=== PATIENT | male | born 1960 | race African-American/Black ===

== ENCOUNTER 2022-10-02 09:38 | Outpatient (RCR) | payer MEDICARE, SELFPAY | END 2022-11-11 11:43 | disposition home or self-care (01) | LOC: PT 09:38 | PROVIDERS: PCP Family Medicine; Visit Provider Personal Emergency Response Attendant | DX: Z98.890 Other specified postprocedural states (principal) | CPT/HCPCS: 97110; 97140 ==

== ENCOUNTER 2022-10-14 11:09 | Emergency (ER) | payer MEDICARE, SELFPAY ==
[2022-10-14] VITALS (11 sets, daily range): BP systolic 124–141; BP diastolic 73–84; PULSE 85–101; RESP 16–26; TEMP 37.3; O2SAT 95–98; BMI 22.5
--- NOTE | 2022-10-14 11:29 | ECG_ITS ---
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
--- NOTE | 2022-10-14 11:29 | XR_ITS ---
The [address] [address] Patient Name: ALEJO FLOYD MRN: [id number] date: 1960 Sex: M Assigned Patient Location: ER Current Patient Location: Accession/Order Number: [id number] Exam Date: 10/14/2022 11:50 Report Date: 10/14/2022 12:29 At the request of: ADAM NAVA Procedure: XR chest 1V EXAM: CHEST 1 VIEW HISTORY: sob and cough for one week TECHNIQUE: Chest, one view. COMPARISON: None. FINDINGS: There is flattening of the diaphragms with trace left effusion and mild left lower lobe airspace disease along the diaphragm. Right lung is clear. No pneumothorax. Pulmonary vasculature is within normal limits. Cardiomediastinal silhouette is normal. IMPRESSION: 1. Pulmonary hyperinflation with a trace left effusion and minimal left lower lobe opacity that may be atelectasis versus small area of pneumonia given symptoms of cough. Correlate with symptoms and recommend short interval follow-up radiographs to resolution. 2. Clear right lung. Electronically authenticated by: REILLY MCNALLY Date: 10/14/2022 12:29
--- NOTE | 2022-10-14 11:29 | ED.CHESTPAI1 ---
HPI - Chest Pain General Chief Complaint: Chest Pain Stated Complaint: URTI COMPLAINTS Time Seen by Provider: 10/14/22 11:28 Source: patient Mode of arrival: walk-in Limitations: no limitations History of Present Illness HPI narrative: the patient is 62-year-old male coming to the Emergency Room with cough and chest congestion that is associated with difficulty breathing for the last few days he has been having those symptoms over the last one week, he denies any nausea vomiting or any chest pain at the moment except for the congestion he also denies any diarrhea or constipation His cough is productive of whitish sputum have a history of smoking as well Review of systems otherwise negative Related Data Home Medications Medication Instructions Recorded Confirmed aspirin 81 mg tablet,delayed 81 mg PO DAILY 10/14/22 10/14/22 release atorvastatin 20 mg tablet 20 mg PO DAILY 10/14/22 10/14/22 bupropion HCl 300 mg 24 hr tablet, 300 mg PO DAILY 10/14/22 10/14/22 extended release duloxetine 60 mg capsule,delayed 60 mg PO DAILY 10/14/22 10/14/22 release fluticasone furoate 100 1 inh inhalation Q24H 10/14/22 10/14/22 mcg-vilanterol 25 mcg/dose inhalation powder (Breo Ellipta) metoprolol succinate 50 mg 50 mg PO DAILY 10/14/22 10/14/22 tablet,extended release 24 hr omeprazole 40 mg capsule,delayed 40 mg PO DAILY 10/14/22 10/14/22 release oxycodone-acetaminophen 10 mg-325 1 tab PO Q4H PRN pain 10/14/22 10/14/22 mg tablet potassium chloride 10 mEq 10 meq PO DAILY 10/14/22 10/14/22 tablet,extended release zolpidem 10 mg tablet 10 mg PO DAILY 10/14/22 10/14/22 Previous Rx's Medication Instructions Recorded albuterol sulfate 2.5 mg/3 mL 2.5 mg (3 mL) inhalation Q6H PRN 10/14/22 (0.083 %) solution for nebulization shortness of breath or wheezing #90 mL albuterol sulfate 90 mcg/actuation 1 inh inhalation Q6H PRN shortness 10/14/22 aerosol inhaler (ProAir HFA) of breath or wheezing #8.5 grams azithromycin 500 mg tablet See Rx Instructions PO .COMPLEX #9 10/14/22 (Zithromax TRI-SURESH) tabs prednisone 50 mg tablet 50 mg PO DAILY 5 days #5 tabs 10/14/22 Allergies Allergy/AdvReac Type Severity Reaction Status Date / Time No Known Drug Allergies Allergy Verified 10/14/22 11:21 Review of Systems ROS Status of ROS 10 or more systems reviewed and unremarkable except as noted in history and below [facility] Medical History (Updated 10/14/22 @ 13:07 by Jacqueline Jj MD) Surgical History (Updated 10/14/22 @ 11:46 by Ketan Morrell) Social History Smoking status: Heavy tobacco smoker Exam Narrative Exam Narrative: Nurses note and vital signs reviewed and patient is not hypoxic. General: The patient appears well and in no apparent distress. Patient is resting comfortably on cart. Skin: Warm, dry, no pallor noted. There is no rash noted. Head: Normocephalic, atraumatic Eye: Normal conjunctiva Ears, Nose, Mouth, and Throat: oral mucosa is moist Cardiovascular: Regular Rate and Rhythm Respiratory: Patient is in no distress, no accessory muscle use, , there is distant breathing sounds bilaterally , no crackles Back: non-tender, no CVA tenderness bilaterally to percussion. GI: Normal bowel sounds, no tenderness to palpation, no masses appreciated. No rebound, guarding, or rigidity noted. : Pelvic exam was completed with nursing staff at bedside for entire duration of the exam. Speculum exam showed normal external genitalia, there was evidence of white/clear discharge in vaginal vault. There was no evidence of blood noted in the vaginal vault. Patient's os was closed. Bimanual exam showed no cervical motion tenderness, no adnexal tenderness, no masses were appreciated. Os is closed. Musculoskeletal: The patient has no evidence of calf tenderness, no pitting edema, symmetrical pulses noted bilaterally Neurological: A&O x4, normal speech Psychiatric: Cooperative Constitutional Vital Signs - 24 hr 10/14/22 11:22 10/14/22 12:15 10/14/22 12:21 Temperature 99.1 F Pulse Rate [Monitor] 101 H Respiratory Rate 20 18 Blood Pressure [Left Arm] 141/84 H Pulse Oximetry 98 95 97 Oxygen Delivery Method Room Air Room Air Room Air Course Vital Signs Vital signs: Vital Signs Temperature 99.1 F 10/14/22 11:22 Pulse Rate 101 H 06/13/23 11:22 Respiratory Rate 20 10/14/22 11:22 Blood Pressure 141/84 H 10/14/22 11:22 Pulse Oximetry 98 10/14/22 11:22 Oxygen Delivery Method Room Air 10/14/22 11:22 Temperature 99.1 F 10/14/22 11:22 Pulse Rate 101 H 10/14/22 11:22 Respiratory Rate 18 10/14/22 12:21 Blood Pressure 141/84 H 10/14/22 11:22 Pulse Oximetry 97 10/14/22 12:21 Oxygen Delivery Method Room Air 10/14/22 12:21 MDM - Chest Pain MDM Narrative Medical decision making narrative: EKG upon presentation showing sinus rhythm no ST elevation or depression and the patient is not presenting with an active chest pain patient CBC shows no leukocytosi chemistry was within normal and the patient was feeling much better after breathing treatment and solumedrol chest x-ray shows possible infiltrate and effusion of the left along the patient will be treated with Z-Suresh in addition to prednisone and breathing treatment at home he is to come back in case any symptoms or concerns The patient instructed about follow-up with his primary care doctor for further evaluation of his x-ray The patient is to followup with primary care physician in next 2-3 days or to return to the emergency department should any of the signs or symptoms worsen or new symptoms develop. The patient agrees with the following Diagnosis and Treatment plan and the patient will be discharged home. Lab Data Labs: Lab Results 10/14/22 Range/Units 12:15 WBC 5.0 (4.0-11.0) 10^3/uL RBC 4.51 L (4.70-6.10) 10^6/uL Hgb 14.4 (14.0-18.0) g/dL Hct 42.9 (42.0-54.0) % MCV 95.1 H (80.0-94.0) fL MCH 31.9 (25.9-34.0) pg MCHC 33.6 (29.9-35.2) g/dL RDW 17.0 H (11.0-15.0) % Plt Count 332 (150-450) 10^3/uL MPV 9.3 L (9.5-13.5) fL Neut % (Auto) 69.0 (43.0-75.0) % Lymph % (Auto) 15.7 L (20.5-60.0) % [place] % (Auto) 12.9 H (1.7-12.0) % Eos % (Auto) 1.2 (0.9-7.0) % Baso % (Auto) 1.0 (0.2-2.0) % Neut # (Auto) 3.5 (1.4-6.5) 10^3/uL Lymph # (Auto) 0.8 L (1.2-3.8) 10^3/uL [place] # (Auto) 0.7 (0.3-0.8) 10^3/uL Eos # (Auto) 0.1 (0.0-0.7) 10^3/uL Baso # (Auto) 0.1 (0.0-0.1) 10^3/uL Abs Immat Gran (auto) 0.01 (0.00-0.03) 10^3/uL Imm/Tot Granulo (auto) 0.2 (0.0-0.5) % PT 10.8 (9.0-11.6) sec INR 1.02 Sodium 135 L (136-145) mmol/L Potassium 3.8 (3.5-5.1) mmol/L Chloride 99 (98-107) mmol/L Carbon Dioxide 25.5 (21.0-32.0) mmol/L Anion Gap 14.3 BUN 9.0 (7.0-18.0) mg/dL Creatinine 0.85 (0.70-1.30) mg/dL Est GFR ( Amer) >60 (>=60) Est GFR (Non-Af Amer) >60 (>=60) BUN/Creatinine Ratio 10.6 Glucose 100 (74-106) mg/dL Calcium 9.6 (8.5-10.1) mg/dL Total Bilirubin 0.8 (0.2-1.0) mg/dL AST 20 (15-37) U/L ALT 26 (16-63) U/L Alkaline Phosphatase 123 H (46-116) U/L Troponin I High Sens 6.7 (4.0-76.1) pg/mL NT-Pro-B Natriuret Pep 131.0 (<=900.0) pg/mL Total Protein 8.4 H (6.4-8.2) g/dL Albumin 3.8 (3.4-5.0) g/dL Globulin 4.6 g/dL Albumin/Globulin Ratio 0.8 Discharge Plan Discharge Chief Complaint: Chest Pain Clinical Impression: Acute exacerbation of chronic obstructive pulmonary disease, Pneumonia Patient Disposition: Home, Self-Care Time of Disposition Decision: 13:03 Mode of Transportation: Private Vehicle Prescriptions / Home Meds: New albuterol sulfate [ProAir HFA] 90 mcg/actuation HFA aerosol inhaler 1 inh inhalation Q6H PRN (Reason: shortness of breath or wheezing) Qty: 8.5 0RF prednisone 50 mg tablet 50 mg PO DAILY 5 Days Qty: 5 0RF albuterol sulfate 2.5 mg /3 mL (0.083 %) solution for nebulization 2.5 mg inhalation Q6H PRN (Reason: shortness of breath or wheezing) Qty: 90 0RF azithromycin [Zithromax TRI-SURESH] 500 mg tablet See Rx Instructions .ROUTE .COMPLEX Qty: 9 0RF Rx Instructions: For 250 mg dose pack: take 500 mg today (day 1), then 250 mg for 4 days (days 2-5) No Action aspirin 81 mg tablet,delayed release (DR/EC) 81 mg PO DAILY atorvastatin 20 mg tablet 20 mg PO DAILY bupropion HCl 300 mg tablet extended release 24 hr 300 mg PO DAILY duloxetine 60 mg capsule,delayed release(DR/EC) 60 mg PO DAILY fluticasone furoate-vilanterol [Breo Ellipta] 100-25 mcg/dose blister with device 1 inh INHALATION Q24H metoprolol succinate 50 mg tablet extended release 24 hr 50 mg PO DAILY omeprazole 40 mg capsule,delayed release(DR/EC) 40 mg PO DAILY oxycodone-acetaminophen 10-325 mg tablet 1 tab PO Q4H PRN (Reason: pain) potassium chloride 10 mEq tablet extended release 10 meq PO DAILY zolpidem 10 mg tablet 10 mg PO DAILY Instructions: COPD (Chronic Obstructive Pulmonary Disease) (ED), Community Acquired Pneumonia (DC) Stand Alone Forms: Portal Instructions Referrals: Gildardo Paredes MD [Primary Care Provider] - 1 week
[2022-10-14] MEDS: IPRATROPIUM/ALBUTEROL SULFATE 3 ML AMPUL.NEB IH (12:14)
[2022-10-14 12:41] LABS: INR 1.02; Prothrombin Time 10.8 sec (9.0-11.6)
[2022-10-14 12:42] LABS: Alanine Aminotransferase 26 U/L (16-63); Albumin Globulin Ratio 0.8; Albumin Level 3.8 g/dL (3.4-5.0); Alkaline Phosphatase 123 U/L (46-116); Anion Gap 14.3; Aspartate Amino Transferase 20 U/L (15-37); BUN Creatinine Ratio 10.6; Bilirubin Total 0.8 mg/dL (0.2-1.0); Calcium 9.6 mg/dL (8.5-10.1); Carbon Dioxide 25.5 mmol/L (21.0-32.0); Chloride 99 mmol/L (98-107); Estimated GFR (African America >60 (>=60); Estimated GFR (Non-African Ame >60 (>=60); Globulin 4.6 g/dL; Glucose 100 mg/dL (74-106); Potassium 3.8 mmol/L (3.5-5.1); Sodium 135 mmol/L (136-145); Total Protein 8.4 g/dL (6.4-8.2); Troponin I High Sensitivity 6.7 pg/mL (4.0-76.1)
[2022-10-14 12:49] LABS: Basophils Absolute Auto 0.1 10^3/uL (0.0-0.1); Eosinophils Absolute Auto 0.1 10^3/uL (0.0-0.7); Eosinophils Percent Auto 1.2 % (0.9-7.0); Hematocrit 42.9 % (42.0-54.0); Hemoglobin 14.4 g/dL (14.0-18.0); Immature Granulocytes Abs Auto 0.01 10^3/uL (0.00-0.03); Immature Granulocytes Pct Auto 0.2 % (0.0-0.5); Lymphocytes Absolute Auto 0.8 10^3/uL (1.2-3.8); Lymphocytes Percent Auto 15.7 % (20.5-60.0); Mean Corpuscular HGB Conc 33.6 g/dL (29.9-35.2); Mean Corpuscular Hemoglobin 31.9 pg (25.9-34.0); Mean Corpuscular Volume 95.1 fL (80.0-94.0); Mean Platelet Volume 9.3 fL (9.5-13.5); Monocytes Absolute Auto 0.7 10^3/uL (0.3-0.8); Monocytes Percent Auto 12.9 % (1.7-12.0); Neutrophils Absolute Auto 3.5 10^3/uL (1.4-6.5); Platelet Count 332 10^3/uL (150-450); Red Blood Count 4.51 10^6/uL (4.70-6.10)
[2022-10-14] MEDS: METHYLPREDNISOLONE SOD SUCC PF 125 MG/2 ML VIAL IVP (12:55)
[2022-10-14] MEDS: KETOROLAC TROMETHAMINE 30 MG/ML VIAL 15 MG IVP (12:55)
== END 2022-10-14 13:27 | disposition home or self-care (01) ==
PROVIDERS: Emergency Provider Emergency Medicine; PCP Family Medicine
DX: J18.9 Pneumonia, unspecified organism (principal); J44.1 Chronic obstructive pulmonary disease with (acute) exacerbation; J44.0 Chronic obstructive pulmonary disease with (acute) lower respiratory infection; F17.210 Nicotine dependence, cigarettes, uncomplicated; R06.02 Shortness of breath; Z79.82 Long term (current) use of aspirin; Z79.899 Other long term (current) drug therapy
CPT/HCPCS: 36415; 71045; 80053; 83880; 84484; 85025; 85610; 93005; 94640; 96374; 96375; 99284; J2930

== ENCOUNTER 2022-11-03 10:50 | Outpatient (OUT) | payer MEDICARE, SELFPAY ==
[2022-11-03 11:28] LABS: Basophils Percent Auto 0.8 % (0.2-2.0); Hematocrit 43.1 % (42.0-54.0); Hemoglobin 14.1 g/dL (14.0-18.0); Lymphocytes Percent Auto 26.6 % (20.5-60.0); Mean Corpuscular HGB Conc 32.7 g/dL (29.9-35.2); Mean Corpuscular Hemoglobin 32.1 pg (25.9-34.0); Mean Corpuscular Volume 98.2 fL (80.0-94.0); Mean Platelet Volume 9.7 fL (9.5-13.5); Monocytes Absolute Auto 0.4 10^3/uL (0.3-0.8); Monocytes Percent Auto 11.3 % (1.7-12.0); Neutrophils Absolute Auto 2.4 10^3/uL (1.4-6.5); Neutrophils Percent Auto 60.3 % (43.0-75.0); Platelet Count 274 10^3/uL (150-450); Red Blood Count 4.39 10^6/uL (4.70-6.10); Red Cell Distribution Width 16.1 % (11.0-15.0); White Blood Count 3.9 10^3/uL (4.0-11.0)
[2022-11-03 11:40] LABS: Estimated Average Glucose 97 mg/dL
[2022-11-03 11:59] LABS: Alanine Aminotransferase 23 U/L (16-63); Albumin Globulin Ratio 0.9; Albumin Level 3.7 g/dL (3.4-5.0); Alkaline Phosphatase 102 U/L (46-116); Anion Gap 14.2; Aspartate Amino Transferase 21 U/L (15-37); BUN Creatinine Ratio 10.8; Bilirubin Direct 0.2 mg/dL (0.0-0.2); Bilirubin Total 0.9 mg/dL (0.2-1.0); Calcium 9.3 mg/dL (8.5-10.1); Carbon Dioxide 23.5 mmol/L (21.0-32.0); Chloride 105 mmol/L (98-107); Chol HDL Ratio 2.4; Cholesterol 129 mg/dL (<=200); Estimated GFR (African America >60 (>=60); Estimated GFR (Non-African Ame >60 (>=60); Globulin 3.9 g/dL; Glucose 116 mg/dL (74-106); HDL Cholesterol 53 mg/dL (40-60); LDL Cholesterol Calculated 60.8 mg/dL; Potassium 3.7 mmol/L (3.5-5.1); Sodium 139 mmol/L (136-145); Total Protein 7.6 g/dL (6.4-8.2); Triglycerides 76 mg/dL (<=150); VLDL CHOLESTEROL 15.2 mg/dL
[2022-11-03 12:53] LABS: Prostate Specific Antigen Scrn 0.64 ng/mL (<=4.00)
== END 2022-11-03 10:51 | disposition home or self-care (01) ==
LOC: LAB 10:52
PROVIDERS: PCP Family Medicine; Visit Provider Family Medicine
DX: I10 Essential (primary) hypertension (principal); Z79.899 Other long term (current) drug therapy; R73.03 Prediabetes; Z13.220 Encounter for screening for lipoid disorders; Z12.5 Encounter for screening for malignant neoplasm of prostate
CPT/HCPCS: 36415; 80048; 80061; 80076; 83036; 85025; G0103

== ENCOUNTER 2023-07-01 12:06 | Outpatient (OUT) | payer MEDICARE, SELFPAY ==
--- NOTE | 2023-07-01 12:30 | CA_ITS ---
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 PVR waveforms with delayed upstroke, blunted amplitude and loss of dicrotic notch. Right: - no significant pressure gradient between cuffs - abnormal BRITTANY Left: - significant pressure gradient between the brachial and thigh cuff - abnormal BRITTANY Impression: - abnormal arterial evaluation of the right lower extremity with mild hemodynamic impairment of the right lower extremity at rest. 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 (left BRITTANY 0.47) Electronically Signed On 07-02-2023 23:23:24 EST by ELIZABETH GALINDO
--- NOTE | 2023-07-01 13:06 | US_ITS ---
[place] [id number] Patient Name: ALEJO FLOYD MRN: [id number] date: 1960 Sex: M Assigned Patient Location: CARD Current Patient Location: CARD Accession/Order Number: [id number] Exam Date: 07/01/2023 13:15 Report Date: 07/01/2023 14:16 At the request of: MIKE LACY Procedure: US carotid duplex BI EXAMINATION: US carotid duplex BI HISTORY: Bilateral Carotid Bruit, Abnormal Ankle Brachial Index COMPARISON: No relevant comparison available. TECHNIQUE: Duplex Doppler ultrasound analysis of carotid and vertebral arteries. . Bilateral carotid arterial duplex examination was performed using B-mode, color flow and spectral analysis. Carotid stenosis is reported according to validated velocity parameters, similar to NASCET criteria. FINDINGS: RIGHT CAROTID ARTERY Mild atherosclerotic plaque Subclavian: PSV: 109.7 cm/s cm/s EDV: 0.0 cm/s cm/s CCA: Prox: PSV: 79.0 cm/s cm/s EDV: 19.2 cm/s cm/s Mid: PSV: 60.3 cm/s cm/s EDV: 17.5 cm/s cm/s Distal: PSV: 52.6 cm/s cm/s EDV: 15.3 cm/s cm/s BULB: PSV: 53.7 cm/s cm/s EDV: 19.7 cm/s cm/s ICA: Prox: PSV: 54.8 cm/s cm/s EDV: 25.2 cm/s cm/s Mid: PSV: 80.6 cm/s cm/s EDV: 43.2 cm/s cm/s Distal: PSV: 150.7 cm/s cm/s EDV: 67.1 cm/s cm/s ECA: PSV: 180.8 cm/s cm/s EDV: 24.8 cm/s cm/s VERTEBRAL: PSV: 82.2 cm/s cm/s EDV: 32.1 cm/s cm/s, antegrade ICA/CCA ratio: PSV: 1.9 EDV: 3.5 LEFT CAROTID ARTERY Extensive atherosclerotic plaque, occlusion of the ICA. 79% reduction in the mid CCA Subclavian: PSV: 153.1 cm/s cm/s EDV: 16.0 cm/s CCA: Prox: PSV: 148.4 cm/s cm/s EDV: 18.3 cm/s Mid: PSV: 129.8 cm/s cm/s EDV: 16.0 cm/s Distal: PSV: 141.4 cm/s cm/s EDV: 11.4 cm/s BULB: PSV: 97.3 cm/s cm/s EDV: 13.7 cm/s ICA: Prox: PSV: 52.5 cm/s cm/s EDV: 8.0 cm/s Mid: PSV: Occluded Distal: PSV: Occluded ECA: PSV: 122.9 cm/s cm/s EDV: 25.3 cm/s VERTEBRAL: PSV: 127.5 cm/s cm/s EDV: 41.6 cm/s, antegrade ICA/CCA ratio: PSV: 0.7 EDV: 0.7 US/US carotid duplex BI IMPRESSION: 0-49% flow stenosis right internal carotid artery Occlusion of the left internal carotid artery with 79% flow stenosis in the left CCA Spectral Doppler US Thresholds (Reference: Jesse EG, et al. Radiology 2000; 214:247-252) Stenosis (%) PSV (cm/sec) VICA/VCCA 0-49 <150 <2.5 50-69 150-225 2.5-4.0 >70 >225 >4.0 Electronically authenticated by: ALBINA DIANE Date: 07/01/2023 14:16
== END 2023-07-01 12:07 | disposition home or self-care (01) ==
LOC: CARD 12:06
PROVIDERS: PCP Family Medicine; Visit Provider Family Medicine
DX: R09.89 Other specified symptoms and signs involving the circulatory and respiratory systems (principal); R68.89 Other general symptoms and signs; I73.9 Peripheral vascular disease, unspecified
CPT/HCPCS: 93880; 93923

== ENCOUNTER 2023-09-30 12:33 | Emergency (ER) | payer MEDICARE, SELFPAY ==
[2023-09-30 12:36] VITALS: BP 178/82; PULSE 115; TEMP 36.8; O2SAT 96; BMI 22.2
--- NOTE | 2023-09-30 12:43 | ECG_ITS ---
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
--- NOTE | 2023-09-30 12:43 | XR_ITS ---
The [address] [address] Patient Name: ALEJO FLOYD MRN: [id number] date: 1960 Sex: M Assigned Patient Location: ER Current Patient Location: ER Accession/Order Number: [id number] Exam Date: 09/30/2023 13:15 Report Date: 09/30/2023 13:28 At the request of: RODOLFO PENG Procedure: XR chest 1V EXAMINATION: XR chest 1V HISTORY: sob COMPARISON: 10/14/2022, 08/30/2022 TECHNIQUE: AP portable FINDINGS: LUNGS: Minimal focal opacity identified in the right midlung. The left lung is clear VASCULATURE: No increased pulmonary vasculature. PLEURA: No pneumothorax, effusion, or pleural thickening. CARDIAC: No cardiomegaly or cardiac silhouette abnormality. MEDIASTINUM: No visible mass or adenopathy. BONES: No fracture or visible bone lesion. OTHER: Negative. XR/XR chest 1V IMPRESSION: New minimal focal opacity right midlung Electronically authenticated by: ALBINA DIANE Date: 09/30/2023 13:28
[2023-09-30] MEDS: 0.9 % SODIUM CHLORIDE 500 ML IV (12:55)
--- NOTE | 2023-09-30 12:55 | ED_ITS ---
HPI - Weakness General Chief complaint: Weakness Stated complaint: GENERAL WEAKNESS Time Seen by Provider: 09/30/23 12:35 Source: patient Mode of arrival: walk-in History of Present Illness HPI Narrative: Patient presents to ED complaining of generalized weakness. He is also complaining of a cough and shortness of breath. Says the cough is productive of slightly green sputum. He has a history of throat cancer and history of radiation as well as chemo. He said he has been in remission for 2 years. He said for the past 3 to 4 days he has had this cough and generalized weakness and overall just not feeling well. He also feels short of breath worse with exertion. No significant chest pain just the shortness of breath. He denies history of lung cancer. He is still smoking. He does have a history of COPD. No abdominal pain, no known fever. He is concerned he may have pneumonia. Related Data Home Medications ?Medication ?Instructions ?Recorded ?Confirmed duloxetine 60 mg capsule,delayed 60 mg PO DAILY 10/14/22 09/30/23 release metoprolol succinate 50 mg 50 mg PO DAILY 10/14/22 09/30/23 tablet,extended release 24 hr omeprazole 40 mg capsule,delayed 40 mg PO DAILY 10/14/22 09/30/23 release oxycodone-acetaminophen 10 mg-325 1 tab PO Q4H PRN pain 10/14/22 09/30/23 mg tablet zolpidem 10 mg tablet 10 mg PO DAILY 10/14/22 09/30/23 Previous Rx's ?Medication ?Instructions ?Recorded azithromycin 500 mg tablet See Rx Instructions PO .COMPLEX #3 09/30/23 (Zithromax TRI-GENEVIEVE) tabs Allergies Allergy/AdvReac Type Severity Reaction Status Date / Time No Known Drug Allergies Allergy Verified 10/14/22 11:21 Review of Systems ROS Status of ROS 10 or more systems reviewed and unremark able except as noted in history and below [facility] Medical History (Updated 09/30/23 @ 14:09 by Malia Hill DO) History of hypertension ?Z86.79 - Personal history of other diseases of the circulatory system (ICD- 10) History of throat cancer ?Z85.819 - Personal history of malignant neoplasm of unspecified site of lip, oral cavity, and pharynx (ICD-10) Hx of supraventricular tachycardia ?Z86.79 - Personal history of other diseases of the circulatory system (ICD- 10) History of emphysema ?J43.9 - Emphysema, unspecified (ICD-10) History of arthritis ?Z87.39 - Personal history of other diseases of the musculoskeletal system and connective tissue (ICD-10) Hx of TIA (transient ischemic attack) and stroke ?Z86.73 - Personal history of transient ischemic attack (TIA), and cerebral infarction without residual deficits (ICD-10) History of COPD ?Z87.09 - Personal history of other diseases of the respiratory system (ICD- 10) Surgical History (Updated 10/14/22 @ 11:46 by Albina Morrell) Hx of cholecystectomy ?Z90.49 - Acquired absence of other specified parts of digestive tract (ICD- 10) 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 - Acquired absence of spleen (ICD-10) Hx of hernia repair ?Z98.890 - Other specified postprocedural states (ICD-10) ?Z87.19 - Personal history of other diseases of the digestive system (ICD-10) Social History Smoking status: Heavy tobacco smoker Exam Narrative Exam Narrative: Time Seen: [] Vital Signs: [Per nurse's notes.] General: [Alert] Skin: [Warm, dry, no rash.] Head: [Normocephalic, atraumatic.] Neck: [Supple, trachea midline.] Scarring And mild deformity on the right side of the neck due to history of radiation Eye: [Pupils are equal, round and reactive to light, extraocular movements are intact, normal conjunctiva.] Ears, nose, mouth and throat: oral mucosa moist. Cardiovascular: [Regular rate and rhythm, no murmur.] Respiratory: [Lungs are clear to auscultation, respirations are non-labored, breath sounds are equal.] Chest wall: [No tenderness, no deformity.] Gastrointestinal: [Soft, nontender, non distended, normal bowel sounds.] MSK: 5 out of 5 muscle strength x 4 extremities no calf pain or edema Lymphatics: [No lymphadenopathy.] Psychiatric: [Cooperative, appropriate mood & affect.] Neurological: [Alert and oriented to person, place, time, and situation, no focal neurological deficit observed.] Constitutional Vital Signs, click to edit/add: Last Vital Signs Temp 98.2 F 09/30/23 12:36 Pulse 115 H 09/30/23 12:36 Resp 20 09/30/23 12:36 BP 178/82 H 09/30/23 12:36 Pulse Ox 96 09/30/23 12:36 O2 Del Method Room Air 09/30/23 12:36 Course Vital Signs Vital signs: Vital Signs Temperature 98.2 F 09/30/23 12:36 Pulse Rate 115 H 09/30/23 12:36 Respiratory Rate 20 09/30/23 12:36 Blood Pressure 178/82 H 09/30/23 12:36 Pulse Oximetry 96 09/30/23 12:36 Oxygen Delivery Method Room Air 09/30/23 12:36 Temperature 98.2 F 09/30/23 12:36 Pulse Rate 115 H 09/30/23 12:36 Respiratory Rate 20 09/30/23 12:36 Blood Pressure 178/82 H 09/30/23 12:36 Pulse Oximetry 96 09/30/23 12:36 Oxygen Delivery Method Room Air 09/30/23 12:36 MDM - Weakness MDM Narrative Medical decision making narrative: Chest x-ray shows a right middle lobe pneumonia. Patient's vital signs are stable and he is in no respiratory distress. He was given IV Rocephin here in ED. He will go home with Zithromax. No known antibiotic allergies. Patient was given strict instructions to return if worsening shortness of breath fevers chills or any other concerns. Follow-up with family doctor to ensure resolution of the pneumonia. Differential Diagnosis Differential diagnosis: Likely sepsis and other (Pneumonia) Medical Records Attestation: I reviewed the patient's medical records. Lab Data Attestation: I reviewed the patient's lab results. Labs: Lab Results 09/30/23 09/30/23 Range/Units 12:50 13:04 WBC 6.8 (4.0-11.0) 10^3/uL RBC 4.06 L (4.70-6.10) 10^6/uL Hgb 13.5 L (14.0-18.0) g/dL Hct 42.8 (42.0-54.0) % MCV 105.4 H (80.0-94.0) fL MCH 33.3 (25.9-34.0) pg MCHC 31.5 (29.9-35.2) g/dL RDW 13.8 (11.0-15.0) % Plt Count 350 (150-450) 10^3/uL MPV 9.1 L (9.5-13.5) fL Neut % (Auto) 73.5 (43.0-75.0) % Lymph % (Auto) 15.0 L (20.5-60.0) % [place] % (Auto) 9.9 (1.7-12.0) % Eos % (Auto) 0.6 L (0.9-7.0) % Baso % (Auto) 0.6 (0.2-2.0) % Neut # (Auto) 5.0 (1.4-6.5) 10^3/uL Lymph # (Auto) 1.0 L (1.2-3.8) 10^3/uL [place] # (Auto) 0.7 (0.3-0.8) 10^3/uL Eos # (Auto) 0.0 (0.0-0.7) 10^3/uL Baso # (Auto) 0.0 (0.0-0.1) 10^3/uL Abs Immat Gran (auto) 0.03 (0.00-0.03) 10^3/uL Imm/Tot Granulo (auto) 0.4 (0.0-0.5) % Sodium 137 (136-145) mmol/L Potassium 4.0 (3.5-5.1) mmol/L Chloride 101 (98-107) mmol/L Carbon Dioxide 22.1 (21.0-32.0) mmol/L Anion Gap 17.9 BUN 18.0 (7.0-18.0) mg/dL Creatinine 1.25 (0.70-1.30) mg/dL Est GFR ( Amer) >60 (>=60) Est GFR (Non-Af Amer) 58 L (>=60) BUN/Creatinine Ratio 14.4 Glucose 94 (74-106) mg/dL Lactate 1.7 (0.4-2.0) mmol/L Calcium 9.5 (8.5-10.1) mg/dL Total Bilirubin 0.9 (0.2-1.0) mg/dL AST 32 (15-37) U/L ALT 20 (16-63) U/L Alkaline Phosphatase 84 (46-116) U/L Troponin I High Sens 23.5 (4.0-76.1) pg/mL Total Protein 7.4 (6.4-8.2) g/dL Albumin 3.4 (3.4-5.0) g/dL Globulin 4.0 g/dL Albumin/Globulin Ratio 0.9 Influenza Type A Ag Negative Influenza Type B Ag Negative SARS-CoV-2 Ag (CV2AG) Negative (NEGATIVE) Imaging Data Chest x-ray: Radiologist's impression: ITS Impressions Chest X-Ray 09/30/23 12:43 IMPRESSION: New minimal focal opacity right midlung Electronically authenticated by: ALBINA DIANE Date: 09/30/2023 13:28 ECG Data Attestation: I personally reviewed and interpreted this ECG as follows: Interpretation: EKG INTERPRETATION Time: []1253 Rate: []106 Rhythm: _ []Sinus tachycardia ST segments: _ [] T waves: _ [] Ectopy: _ [] P wave/VA interval: _ [] QRS interval: _ [] QT interval: _ [] Comparison: _ [] Comparison EKG date: [] Performed by: [self]No acute ST elevation or depression Smoking Cessation Time spent discussing smoking cessation with patient: 3 to 10 minutes Patient Acknowledges Need for Cessation: Yes Discharge Plan Discharge Stand Alone Forms: Portal Instructions Chief Complaint: Weakness Clinical Impression: Pneumonia Patient Disposition: Home, Self-Care Time of Disposition Decision: 14:09 Condition: Good Mode of Transportation: Private Vehicle Prescriptions / Home Meds: New azithromycin [Zithromax TRI-GENEVIEVE] 500 mg tablet See Rx Instructions PO .COMPLEX Qty: 3 0RF Rx Instructions: For 250 mg dose pack: take 500 mg today (day 1), then 250 mg for 4 days (days 2-5) No Action duloxetine 60 mg capsule,delayed release(DR/EC) 60 mg PO DAILY metoprolol succinate 50 mg tablet extended release 24 hr 50 mg PO DAILY omeprazole 40 mg capsule,delayed release(DR/EC) 40 mg PO DAILY oxycodone-acetaminophen 10-325 mg tablet 1 tab PO Q4H PRN (Reason: pain) zolpidem 10 mg tablet 10 mg PO DAILY Print Language: Bengali Instructions: Community Acquired Pneumonia (ED) Referrals: Gildardo Paredes MD [Primary Care Provider] - 1 week
[2023-09-30 13:13] LABS: Basophils Percent Auto 0.6 % (0.2-2.0); Eosinophils Percent Auto 0.6 % (0.9-7.0); Hematocrit 42.8 % (42.0-54.0); Hemoglobin 13.5 g/dL (14.0-18.0); Immature Granulocytes Abs Auto 0.03 10^3/uL (0.00-0.03); Immature Granulocytes Pct Auto 0.4 % (0.0-0.5); Mean Corpuscular HGB Conc 31.5 g/dL (29.9-35.2); Mean Corpuscular Hemoglobin 33.3 pg (25.9-34.0); Mean Corpuscular Volume 105.4 fL (80.0-94.0); Mean Platelet Volume 9.1 fL (9.5-13.5); Monocytes Absolute Auto 0.7 10^3/uL (0.3-0.8); Monocytes Percent Auto 9.9 % (1.7-12.0); Neutrophils Percent Auto 73.5 % (43.0-75.0); Platelet Count 350 10^3/uL (150-450); Red Blood Count 4.06 10^6/uL (4.70-6.10); Red Cell Distribution Width 13.8 % (11.0-15.0); White Blood Count 6.8 10^3/uL (4.0-11.0)
[2023-09-30 13:26] LABS: Influenza Virus A Antigen Negative; Influenza Virus B Antigen Negative; Internal Control Within Normal Limits; SARS-CoV-2 Ag NEGATIVE (NEGATIVE)
[2023-09-30 13:34] LABS: Lactate/Lactic Acid 1.7 mmol/L (0.4-2.0)
[2023-09-30] MEDS: CEFTRIAXONE 1,000 MG in 0.9 % SODIUM CHLORIDE 50 ML 100 MG IV (13:43)
[2023-09-30 13:49] LABS: Anion Gap 17.9
[2023-09-30 13:50] LABS: Alanine Aminotransferase 20 U/L (16-63); Albumin Globulin Ratio 0.9; Albumin Level 3.4 g/dL (3.4-5.0); Alkaline Phosphatase 84 U/L (46-116); Aspartate Amino Transferase 32 U/L (15-37); BUN Creatinine Ratio 14.4; Bilirubin Total 0.9 mg/dL (0.2-1.0); Calcium 9.5 mg/dL (8.5-10.1); Carbon Dioxide 22.1 mmol/L (21.0-32.0); Chloride 101 mmol/L (98-107); Estimated GFR (African America >60 (>=60); Estimated GFR (Non-African Ame 58 (>=60); Glucose 94 mg/dL (74-106); Sodium 137 mmol/L (136-145); Total Protein 7.4 g/dL (6.4-8.2); Troponin I High Sensitivity 23.5 pg/mL (4.0-76.1)
== END 2023-09-30 14:17 | disposition home or self-care (01) ==
PROVIDERS: Emergency Provider Emergency Medicine; PCP Family Medicine
DX: J18.9 Pneumonia, unspecified organism (principal); J44.0 Chronic obstructive pulmonary disease with (acute) lower respiratory infection; F17.210 Nicotine dependence, cigarettes, uncomplicated; Z85.819 Personal history of malignant neoplasm of unspecified site of lip, oral cavity, and pharynx; Z20.822 Contact with and (suspected) exposure to COVID-19
CPT/HCPCS: 36415; 71045; 80053; 83605; 84484; 85025; 87040; 87804; 87811; 93005; 96365; 99285

== ENCOUNTER 2023-12-14 10:40 | Outpatient (OUT) | payer MEDICARE, SELFPAY ==
[2023-12-14 12:07] LABS: Alanine Aminotransferase 14 U/L (16-63); Albumin Globulin Ratio 1.3; Alkaline Phosphatase 65 U/L (46-116); Anion Gap 13.9; Aspartate Amino Transferase 23 U/L (15-37); BUN Creatinine Ratio 23.7; Bilirubin Direct 0.2 mg/dL (0.0-0.2); Bilirubin Total 1.3 mg/dL (0.2-1.0); Calcium 9.5 mg/dL (8.5-10.1); Carbon Dioxide 24.7 mmol/L (21.0-32.0); Chloride 102 mmol/L (98-107); Chol HDL Ratio 1.9; Cholesterol 125 mg/dL (<=200); Estimated GFR (African America >60 (>=60); Estimated GFR (Non-African Ame >60 (>=60); Globulin 3.2 g/dL; Glucose 97 mg/dL (74-106); HDL Cholesterol 67 mg/dL (40-60); Sodium 136 mmol/L (136-145); Thyroid Stimulating Hormone 4.048 uIU/mL (0.358-3.740); Total Protein 7.2 g/dL (6.4-8.2); Triglycerides 41 mg/dL (<=150); VLDL CHOLESTEROL 8.2 mg/dL
[2023-12-14 12:18] LABS: Potassium 4.6 mmol/L (3.5-5.1)
[2023-12-14 12:40] LABS: Prostate Specific Antigen Scrn <0.13 ng/mL (<=4.00)
== END 2023-12-14 10:41 | disposition home or self-care (01) ==
LOC: LAB 10:42
PROVIDERS: PCP Family Medicine; Visit Provider Family Medicine
DX: R73.03 Prediabetes (principal); Z79.899 Other long term (current) drug therapy; E78.5 Hyperlipidemia, unspecified; Z12.5 Encounter for screening for malignant neoplasm of prostate; R53.83 Other fatigue
CPT/HCPCS: 36415; 80048; 80061; 80076; 83036; 84443; G0103

== ENCOUNTER 2023-12-15 12:07 | Outpatient (OUT) | payer MEDICARE, SELFPAY ==
[2023-12-15 12:15] LABS: Basophils Percent Auto 0.6 % (0.2-2.0); Eosinophils Percent Auto 0.1 % (0.9-7.0); Hematocrit 37.9 % (42.0-54.0); Hemoglobin 12.6 g/dL (14.0-18.0); Immature Granulocytes Abs Auto 0.02 10^3/uL (0.00-0.03); Immature Granulocytes Pct Auto 0.3 % (0.0-0.5); Lymphocytes Absolute Auto 1.4 10^3/uL (1.2-3.8); Lymphocytes Percent Auto 18.6 % (20.5-60.0); Mean Corpuscular HGB Conc 33.2 g/dL (29.9-35.2); Mean Corpuscular Hemoglobin 33.7 pg (25.9-34.0); Mean Corpuscular Volume 101.3 fL (80.0-94.0); Monocytes Absolute Auto 0.9 10^3/uL (0.3-0.8); Monocytes Percent Auto 12.7 % (1.7-12.0); Neutrophils Absolute Auto 4.9 10^3/uL (1.4-6.5); Neutrophils Percent Auto 67.7 % (43.0-75.0); Platelet Count 255 10^3/uL (150-450); Red Blood Count 3.74 10^6/uL (4.70-6.10); Red Cell Distribution Width 15.4 % (11.0-15.0); White Blood Count 7.3 10^3/uL (4.0-11.0)
[2023-12-15 13:06] LABS: Estimated Average Glucose 82 mg/dL; Glycohemoglobin A1C 4.5 % (4.5-6.2)
== END 2023-12-15 12:08 | disposition home or self-care (01) ==
LOC: LAB 12:07
PROVIDERS: PCP Family Medicine; Visit Provider Family Medicine
DX: R73.03 Prediabetes (principal); Z79.899 Other long term (current) drug therapy; E78.5 Hyperlipidemia, unspecified; Z12.5 Encounter for screening for malignant neoplasm of prostate; R53.83 Other fatigue
CPT/HCPCS: 36415; 83036; 85025

== ENCOUNTER 2023-12-21 09:29 | Outpatient (OUT) | payer MEDICARE, SELFPAY ==
--- NOTE | 2023-12-21 09:34 | MR_ITS ---
[place] [id number] Patient Name: ALEJO FLOYD MRN: [id number] date: 1960 Sex: M Assigned Patient Location: MRI Current Patient Location: MRI Accession/Order Number: [id number] Exam Date: 12/21/2023 10:00 Report Date: 12/22/2023 13:28 At the request of: MELANI RAMACHANDRAN Procedure: MR shoulder RT wo con EXAM: MR shoulder RT wo con HISTORY: Right Shoulder Internal Derangement M24.811 COMPARISON: 04/15/2022 TECHNIQUE: MRI images obtained with multiple sequences. MRI of the right shoulder without contrast. Sequences obtained by standard department protocol. FINDINGS: Full-thickness tear of the distal supraspinatus/infraspinatus junction measuring 1 cm in diameter (sagittal STIR image 15). Bone anchors of the proximal humerus. Subacromial, subdeltoid bursal fluid, consistent with bursitis. Mild degeneration of the acromioclavicular joint. Biceps tendon is intact and within the intertubercular groove. Teres minor is intact. Subscapularis tendon is intact. Muscle bulk of the rotator cuff is preserved. No labral detachment. No acute fracture. No acute bone marrow edema. MR/MR shoulder RT wo con IMPRESSION: 1. Full-thickness tear of the distal supraspinatus/infraspinatus junction measuring 1 cm in diameter (sagittal STIR image 15). 2. No labral detachment. 3. Biceps tendon is intact and within the intertubercular groove. Electronically authenticated by: ASHANTI LUCERO Date: 12/22/2023 13:28
== END 2023-12-21 09:30 | disposition home or self-care (01) ==
LOC: MRI 09:29
PROVIDERS: PCP Family Medicine; Visit Provider Orthopaedic Surgery
DX: M24.811 Other specific joint derangements of right shoulder, not elsewhere classified (principal); M75.121 Complete rotator cuff tear or rupture of right shoulder, not specified as traumatic
CPT/HCPCS: 73221

== ENCOUNTER 2024-02-04 12:20 | Outpatient (OUT) | payer MEDICARE, SELFPAY ==
--- NOTE | 2024-02-04 | ECG_ITS ---
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
== END 2024-02-04 12:21 | disposition home or self-care (01) ==
LOC: CARD 12:22
PROVIDERS: PCP Family Medicine; Visit Provider Personal Emergency Response Attendant
DX: Z01.810 Encounter for preprocedural cardiovascular examination (principal); Z01.818 Encounter for other preprocedural examination
CPT/HCPCS: 93005

== ENCOUNTER 2024-02-18 12:15 | Emergency (ER) | payer MEDICARE, SELFPAY ==
[2024-02-18 12:21] VITALS: BP 135/87; PULSE 125; O2SAT 97; BMI 20.1
[2024-02-18 12:22] VITALS: BP 135/87; O2SAT 97
[2024-02-18 12:25] VITALS: TEMP 36.5
--- NOTE | 2024-02-18 12:29 | ECG_ITS ---
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
[2024-02-18 12:30] VITALS: O2SAT 97
--- NOTE | 2024-02-18 12:53 | ED_ITS ---
HPI - SOB/Dyspnea General Chief Complaint: Shortness of Breath/Dyspnea Stated Complaint: SHORTNESS OF BREATH Time Seen by Provider: 02/18/24 12:29 Source: patient Mode of arrival: walk-in History of Present Illness HPI Narrative: The patient presented to us with a 2 days history of increasing his shortness of breath he always had a productive cough, but according to him the shortness of breath is new No nausea no vomiting no fever no chills The patient denies any other complaints Related Data Home Medications ?Medication ?Instructions ?Recorded ?Confirmed duloxetine 60 mg capsule,delayed 60 mg PO DAILY 10/14/22 09/30/23 release metoprolol succinate 50 mg 50 mg PO DAILY 10/14/22 09/30/23 tablet,extended release 24 hr omeprazole 40 mg capsule,delayed 40 mg PO DAILY 10/14/22 09/30/23 release oxycodone-acetaminophen 10 mg-325 1 tab PO Q4H PRN pain 10/14/22 09/30/23 mg tablet zolpidem 10 mg tablet 10 mg PO DAILY 10/14/22 09/30/23 Previous Rx's ?Medication ?Instructions ?Recorded azithromycin 500 mg tablet See Rx Instructions PO .COMPLEX #3 09/30/23 (Zithromax TRI-SURESH) tabs azithromycin 250 mg tablet See Rx Instructions PO .COMPLEX #6 02/18/24 (Zithromax Z-Suresh) tabs cephalexin 500 mg capsule 500 mg PO Q8H 7 days #21 caps 02/18/24 prednisone 20 mg tablet 40 mg (2 x 20 mg) PO DAILY 5 days 02/18/24 #10 tabs Allergies Allergy/AdvReac Type Severity Reaction Status Date / Time No Known Drug Allergies Allergy Verified 10/14/22 11:21 Review of Systems ROS Status of ROS 10 or more systems reviewed and unremark able except as noted in history and below [facility] Medical History (Updated 02/18/24 @ 14:06 by Jacqueline Jj MD) History of hypertension ?Z86.79 - Personal history of other diseases of the circulatory system (ICD- 10) History of throat cancer ?Z85.819 - Personal history of malignant neoplasm of unspecified site of lip, oral cavity, and pharynx (ICD-10) Hx of supraventricular tachycardia ?Z86.79 - Personal history of other diseases of the circulatory system (ICD- 10) History of emphysema ?J43.9 - Emphysema, unspecified (ICD-10) History of arthritis ?Z87.39 - Personal history of other diseases of the musculoskeletal system and connective tissue (ICD-10) Hx of TIA (transient ischemic attack) and stroke ?Z86.73 - Personal history of transient ischemic attack (TIA), and cerebral infarction without residual deficits (ICD-10) History of COPD ?Z87.09 - Personal history of other diseases of the respiratory system (ICD- 10) Surgical History (Updated 10/14/22 @ 11:46 by Ketan Morrell) Hx of cholecystectomy ?Z90.49 - Acquired absence of other specified parts of digestive tract (ICD- 10) 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 - Acquired absence of spleen (ICD-10) Hx of hernia repair ?Z98.890 - Other specified postprocedural states (ICD-10) ?Z87.19 - Personal history of other diseases of the digestive system (ICD-10) Social History Smoking status: Heavy tobacco smoker Exam Narrative Exam Narrative: Nurses notes and vital signs reviewed and patient is not hypoxic. General: Well-appearing and in no apparent distress. Skin: Warm, dry, no pallor noted. No rash. Head: Normocephalic, atraumatic. Neck: Supple, non-tender. Eye: Pupils are equal, round and EOMI. No scleral icterus. Ears, Nose, Mouth, and Throat: TM are clear, no nasal mucosal hypertrophy. Oral mucosa is moist, no posterior oropharynx erythema, uvula is mid-line Cardiovascular: Regular Rate and Rhythm without murmur, gallop or rub. Respiratory: The patient have bilateral expiratory lung wheezes and distant breathing sounds Lungs are clear to auscultation, no wheezing, rales or rhonchi Chest Wall: no tenderness Back: No midline thoracic or lumbar vertebral tenderness. No CVA tenderness Musculoskeletal: normal ROM, no calf or popliteal tenderness, no lower extremity edema/swelling GI: Abdomen is soft, non-distended. Normal bowel sounds. No masses appreciated. No tenderness to palpation. No rebound, guarding, or rigidity noted. Neurological: A&O x4. No cranial nerve dysfunction observed. No truncal ataxia. Moves all extremities. Sensation intact. Psychiatric: Cooperative and interactive. Normal mood and affect. Constitutional Vital Signs, click to edit/add: Last Vital Signs Temp 97.7 F 02/18/24 12:25 Pulse 109 H 02/18/24 12:59 Resp 22 H 02/18/24 12:21 BP 135/87 02/18/24 12:21 Pulse Ox 98 02/18/24 12:59 O2 Del Method Room Air 02/18/24 12:59 Course Vital Signs Vital signs: Vital Signs Pulse Rate 125 H 02/18/24 12:21 Respiratory Rate 22 H 02/18/24 12:21 Blood Pressure 135/87 02/18/24 12:21 Pulse Oximetry 97 02/18/24 12:21 Oxygen Delivery Method Room Air 02/18/24 12:21 Temperature 97.7 F 02/18/24 12:25 Pulse Rate 109 H 02/18/24 12:59 Respiratory Rate 22 H 02/18/24 12:21 Blood Pressure 135/87 02/18/24 12:21 Pulse Oximetry 98 02/18/24 12:59 Oxygen Delivery Method Room Air 02/18/24 12:59 MDM - SOB/Dyspnea MDM Narrative Medical decision making narrative: The patient EKG showing sinus rhythm with a heart rate of [address] elevation or depression The patient was no distress upon arrival he actually requested food and he was hungry Chest x-ray showed no acute pathology CBC and chemistry showed no acute pathology as well The patient feeling better after initial treatment and he is was requesting to be discharged home he was discharged home with antibiotic in addition to prednisone The patient is to follow up with primary care physician in next 2-3 days or to return to the emergency department should any of the signs or symptoms worsen or new symptoms develop. The patient agrees with the following Diagnosis and Treatment plan and the patient will be discharged home. Lab Data Labs: Lab Results 02/18/24 Range/Units 12:45 WBC 5.0 (4.0-11.0) 10^3/uL RBC 4.17 L (4.70-6.10) 10^6/uL Hgb 13.9 L (14.0-18.0) g/dL Hct 41.4 L (42.0-54.0) % MCV 99.3 H (80.0-94.0) fL MCH 33.3 (25.9-34.0) pg MCHC 33.6 (29.9-35.2) g/dL RDW 12.9 (11.0-15.0) % Plt Count 273 (150-450) 10^3/uL MPV 9.7 (9.5-13.5) fL Neut % (Auto) 61.3 (43.0-75.0) % Lymph % (Auto) 21.4 (20.5-60.0) % [place] % (Auto) 14.3 H (1.7-12.0) % Eos % (Auto) 1.4 (0.9-7.0) % Baso % (Auto) 1.4 (0.2-2.0) % Neut # (Auto) 3.1 (1.4-6.5) 10^3/uL Lymph # (Auto) 1.1 L (1.2-3.8) 10^3/uL [place] # (Auto) 0.7 (0.3-0.8) 10^3/uL Eos # (Auto) 0.1 (0.0-0.7) 10^3/uL Baso # (Auto) 0.1 (0.0-0.1) 10^3/uL Abs Immat Gran (auto) 0.01 (0.00-0.03) 10^3/uL Imm/Tot Granulo (auto) 0.2 (0.0-0.5) % PT 11.5 (9.0-11.6) sec INR 1.09 Sodium 138 (136-145) mmol/L Potassium 3.4 L (3.5-5.1) mmol/L Chloride 99 (98-107) mmol/L Carbon Dioxide 25.0 (21.0-32.0) mmol/L Anion Gap 17.4 BUN 11.0 (7.0-18.0) mg/dL Creatinine 0.97 (0.70-1.30) mg/dL Est GFR ( Amer) >60 (>=60 mL/min/1.73m^2) Est GFR (Non-Af Amer) >60 (>=60 mL/min/1.73m^2) BUN/Creatinine Ratio 11.3 Glucose 88 (74-106) mg/dL Lactate 1.5 (0.4-2.0) mmol/L Calcium 9.5 (8.5-10.1) mg/dL Total Bilirubin 1.6 H (0.2-1.0) mg/dL AST 21 (15-37) U/L ALT 17 (16-63) U/L Alkaline Phosphatase 82 (46-116) U/L Troponin I High Sens 14.8 (4.0-76.1) pg/mL Total Protein 7.2 (6.4-8.2) g/dL Albumin 3.8 (3.4-5.0) g/dL Globulin 3.4 g/dL Albumin/Globulin Ratio 1.1 Discharge Plan Discharge Chief Complaint: Shortness of Breath/Dyspnea Clinical Impression: Acute exacerbation of chronic obstructive pulmonary disease Patient Disposition: Home, Self-Care Time of Disposition Decision: 14:06 Condition: Good Prescriptions / Home Meds: New azithromycin [Zithromax Z-Suresh] 250 mg tablet See Rx Instructions .ROUTE .COMPLEX Qty: 6 0RF Rx Instructions: For 250 mg dose pack: take 500 mg today (day 1), then 250 mg for 4 days (days 2-5) cephalexin 500 mg capsule 500 mg PO Q8H 7 Days Qty: 21 0RF prednisone 20 mg tablet 40 mg PO DAILY 5 Days Qty: 10 0RF No Action duloxetine 60 mg capsule,delayed release(DR/EC) 60 mg PO DAILY metoprolol succinate 50 mg tablet extended release 24 hr 50 mg PO DAILY omeprazole 40 mg capsule,delayed release(DR/EC) 40 mg PO DAILY oxycodone-acetaminophen 10-325 mg tablet 1 tab PO Q4H PRN (Reason: pain) zolpidem 10 mg tablet 10 mg PO DAILY azithromycin [Zithromax TRI-SURESH] 500 mg tablet See Rx Instructions PO .COMPLEX Qty: 3 0RF Rx Instructions: For 250 mg dose pack: take 500 mg today (day 1), then 250 mg for 4 days (days 2-5) Print Language: Portuguese Instructions: COPD (Chronic Obstructive Pulmonary Disease) (DC) Referrals: Gildardo Paredes MD [Primary Care Provider] - 1 week
[2024-02-18] MEDS: IPRATROPIUM/ALBUTEROL SULFATE 3 ML AMPUL.NEB IH (12:58)
[2024-02-18 12:59] VITALS: PULSE 109; O2SAT 98
[2024-02-18 13:05] LABS: Basophils Absolute Auto 0.1 10^3/uL (0.0-0.1); Basophils Percent Auto 1.4 % (0.2-2.0); Eosinophils Absolute Auto 0.1 10^3/uL (0.0-0.7); Eosinophils Percent Auto 1.4 % (0.9-7.0); Hematocrit 41.4 % (42.0-54.0); Hemoglobin 13.9 g/dL (14.0-18.0); Immature Granulocytes Abs Auto 0.01 10^3/uL (0.00-0.03); Immature Granulocytes Pct Auto 0.2 % (0.0-0.5); Lymphocytes Absolute Auto 1.1 10^3/uL (1.2-3.8); Lymphocytes Percent Auto 21.4 % (20.5-60.0); Mean Corpuscular HGB Conc 33.6 g/dL (29.9-35.2); Mean Corpuscular Hemoglobin 33.3 pg (25.9-34.0); Mean Corpuscular Volume 99.3 fL (80.0-94.0); Mean Platelet Volume 9.7 fL (9.5-13.5); Monocytes Absolute Auto 0.7 10^3/uL (0.3-0.8); Monocytes Percent Auto 14.3 % (1.7-12.0); Neutrophils Absolute Auto 3.1 10^3/uL (1.4-6.5); Neutrophils Percent Auto 61.3 % (43.0-75.0); Platelet Count 273 10^3/uL (150-450); Red Blood Count 4.17 10^6/uL (4.70-6.10); Red Cell Distribution Width 12.9 % (11.0-15.0)
[2024-02-18] MEDS: METHYLPREDNISOLONE SOD SUCC PF 125 MG/2 ML VIAL IVP (13:05)
[2024-02-18 13:18] LABS: INR 1.09; Prothrombin Time 11.5 sec (9.0-11.6)
--- NOTE | 2024-02-18 13:26 | XR_ITS ---
The [address] [address] Patient Name: ALEJO FLOYD MRN: [id number] date: 1960 Sex: M Assigned Patient Location: ER Current Patient Location: ER Accession/Order Number: [id number] Exam Date: 02/18/2024 13:20 Report Date: 02/18/2024 13:39 At the request of: ADAM NAVA Procedure: XR chest 1V EXAMINATION: XR chest 1V HISTORY: sob COMPARISON: 09/30/2023 TECHNIQUE: AP portable FINDINGS: LUNGS: No significant pulmonary parenchymal abnormalities. VASCULATURE: No increased pulmonary vasculature. PLEURA: No pneumothorax, effusion, or pleural thickening. CARDIAC: No cardiomegaly or cardiac silhouette abnormality. MEDIASTINUM: No visible mass or adenopathy. BONES: No fracture or visible bone lesion. OTHER: Subcutaneous air over the right scapula consistent with recent shoulder surgery XR/XR chest 1V IMPRESSION: No acute cardiopulmonary process Electronically authenticated by: ALBINA DIANE Date: 02/18/2024 13:39
[2024-02-18 13:32] LABS: Lactate/Lactic Acid 1.5 mmol/L (0.4-2.0)
[2024-02-18 13:40] LABS: Alanine Aminotransferase 17 U/L (16-63); Albumin Globulin Ratio 1.1; Albumin Level 3.8 g/dL (3.4-5.0); Alkaline Phosphatase 82 U/L (46-116); Anion Gap 17.4; Aspartate Amino Transferase 21 U/L (15-37); BUN Creatinine Ratio 11.3; Bilirubin Total 1.6 mg/dL (0.2-1.0); Calcium 9.5 mg/dL (8.5-10.1); Chloride 99 mmol/L (98-107); Estimated GFR (African America >60 (>=60 mL/min/1.73m^2); Estimated GFR (Non-African Ame >60 (>=60 mL/min/1.73m^2); Globulin 3.4 g/dL; Glucose 88 mg/dL (74-106); Potassium 3.4 mmol/L (3.5-5.1); Sodium 138 mmol/L (136-145); Total Protein 7.2 g/dL (6.4-8.2); Troponin I High Sensitivity 14.8 pg/mL (4.0-76.1)
[2024-02-18] MEDS: AZITHROMYCIN 250 MG TABLET 500 MG PO (14:13)
[2024-02-18] MEDS: IPRATROPIUM BROMIDE 0.5 MG/2.5 ML VIAL.NEB INH (14:16)
[2024-02-18 14:17] VITALS: PULSE 117; O2SAT 94
== END 2024-02-18 14:33 | disposition home or self-care (01) ==
PROVIDERS: Emergency Provider Emergency Medicine; PCP Family Medicine
DX: J44.1 Chronic obstructive pulmonary disease with (acute) exacerbation (principal); F17.200 Nicotine dependence, unspecified, uncomplicated
CPT/HCPCS: 36415; 71045; 80053; 83605; 84484; 85025; 85610; 87811; 93005; 94640; 96374; 99285; J2919

== ENCOUNTER 2024-02-24 13:08 | Outpatient (RCR) | payer MEDICARE, SELFPAY | END 2024-05-03 14:37 | disposition home or self-care (01) | LOC: PT 13:08 | PROVIDERS: PCP Family Medicine; Visit Provider Personal Emergency Response Attendant | DX: Z98.890 Other specified postprocedural states (principal) | CPT/HCPCS: 97110; 97112; 97140; 97162 ==

== ENCOUNTER 2024-04-25 12:03 | Outpatient (OUT) | payer MEDICARE, SELFPAY ==
--- NOTE | 2024-04-25 12:08 | XR_ITS ---
The [address] [address] Patient Name: ALEJO FLOYD MRN: [id number] date: 1960 Sex: M Assigned Patient Location: [facility] Current Patient Location: Accession/Order Number: [id number] Exam Date: 04/25/2024 12:15 Report Date: 04/28/2024 07:51 At the request of: MIKE LACY Procedure: XR foot LT 2V PROCEDURE: XR foot LT 2V HISTORY: Left Foot Pain COMPARISON: XR foot left 12/15/2019 FINDINGS: BONES:Transverse fractures through the neck of second, third, fourth, and 5th metatarsals with medial apex angulation and partial osseous healing. No significant flattening of plantar arch. SOFT TISSUES:No visible soft tissue swelling. EFFUSION:None visible. OTHER: Negative. XR/XR foot LT 2V IMPRESSION: 1. Fractures involving the necks of the second through 5th metatarsals with partial osseous healing favoring subacute to early remote fractures. Findings are new compared 12/15/2019. Electronically authenticated by: BELLA PEREIRA Date: 04/28/2024 07:51
== END 2024-04-25 12:04 | disposition home or self-care (01) ==
LOC: RAD 12:05
PROVIDERS: PCP Family Medicine; Visit Provider Family Medicine
DX: M79.672 Pain in left foot (principal); S92.322D Displaced fracture of second metatarsal bone, left foot, subsequent encounter for fracture with routine healing; S92.332D Displaced fracture of third metatarsal bone, left foot, subsequent encounter for fracture with routine healing; S92.342D Displaced fracture of fourth metatarsal bone, left foot, subsequent encounter for fracture with routine healing; S92.352D Displaced fracture of fifth metatarsal bone, left foot, subsequent encounter for fracture with routine healing
CPT/HCPCS: 73620

== ENCOUNTER 2024-05-04 10:44 | Outpatient (RCR) | payer MEDICARE, SELFPAY | END 2024-05-12 13:47 | disposition home or self-care (01) | LOC: PT 10:44 | PROVIDERS: PCP Family Medicine; Visit Provider Personal Emergency Response Attendant | DX: Z98.890 Other specified postprocedural states (principal) | CPT/HCPCS: 97110; 97112; G0283 ==

== ENCOUNTER 2024-05-20 09:13 | Outpatient (OUT) | payer MEDICARE, SELFPAY ==
--- NOTE | 2024-05-20 09:23 | MR_ITS ---
[address] [address] Patient Name: ALEJO FLOYD MRN: [id number] date: 1960 Sex: M Assigned Patient Location: MRI Current Patient Location: MRI Accession/Order Number: [id number] Exam Date: 05/20/2024 09:45 Report Date: 05/20/2024 14:59 At the request of: CASSIE WINN Procedure: MR shoulder RT wo con EXAM: MR shoulder RT wo con. HISTORY: Internal derangement of right shoulder. COMPARISON: 12/21/2023 TECHNIQUE: MRI images obtained with multiple sequences. MRI of the right shoulder without contrast. Sequences obtained by standard department protocol. FINDINGS: Normal alignment of the acromioclavicular joint. Subacromial subdeltoid bursal fluid and glenohumeral joint fluid. Full-thickness tear of the distal supraspinatus/infraspinatus junction, measuring approximately 1.8 cm in width. There is 2.3 cm of retraction. Teres minor is intact. Subscapularis is intact. No labral detachment. Muscle bulk of the rotator cuff is preserved. Bone anchors of the proximal humerus. No right axillary adenopathy. No acute fractures. Bone anchors of the proximal humerus. No mass or consolidation of the right lung. MR/MR shoulder RT wo con IMPRESSION: 1. Full-thickness tear of the distal supraspinatus/infraspinatus junction, measuring approximately 1.8 cm in width. There is 2.3 cm of retraction. 2. Bone anchors of the proximal humerus. 3. No acute fractures. 4. No labral detachment. Electronically authenticated by: ASHANTI LUCERO Date: 05/20/2024 14:59
== END 2024-05-20 09:14 | disposition home or self-care (01) ==
LOC: MRI 09:13
PROVIDERS: PCP Family Medicine; Visit Provider Personal Emergency Response Attendant
DX: M24.811 Other specific joint derangements of right shoulder, not elsewhere classified (principal); S46.811A Strain of other muscles, fascia and tendons at shoulder and upper arm level, right arm, initial encounter
CPT/HCPCS: 73221

== ENCOUNTER 2024-05-31 08:54 | Emergency (ER) | payer MEDICARE, SELFPAY ==
[2024-05-31 08:54] VITALS: BP 132/83; PULSE 75; TEMP 36.4; O2SAT 97; BMI 20.1
--- NOTE | 2024-05-31 09:00 | XR_ITS ---
The [address] [address] Patient Name: ALEJO FLOYD MRN: [id number] date: 1960 Sex: M Assigned Patient Location: ER Current Patient Location: ER Accession/Order Number: [id number] Exam Date: 05/31/2024 09:10 Report Date: 05/31/2024 09:46 At the request of: BONITA PITTMAN Procedure: XR foot LT min 3V PROCEDURE: XR foot LT min 3V COMPARISON: 04/25/2024 HISTORY: fall, pain to toes 3-5 FINDINGS: BONES:Stable healing fractures neck of the second through fifth metatarsals. No new fracture or dislocation. SOFT TISSUES:Negative. No visible soft tissue swelling. EFFUSION:None visible. OTHER: Negative. XR/XR foot LT min 3V IMPRESSION: Stable healing metatarsal fractures Electronically authenticated by: ALBINA DIANE Date: 05/31/2024 09:46
--- NOTE | 2024-05-31 09:00 | CT_ITS ---
The [address] [address] Patient Name: ALEJO FLOYD MRN: [id number] date: 1960 Sex: M Assigned Patient Location: ER Current Patient Location: Accession/Order Number: [id number] Exam Date: 05/31/2024 09:06 Report Date: 05/31/2024 09:26 At the request of: BONITA PITTMAN Procedure: CT head/brain wo con EXAM: CT head/brain wo con HISTORY: fall COMPARISON: CT head 08/10/2017. TECHNIQUE: Axial noncontrast CT imaging of the head was performed with coronal and sagittal reformats. This CT exam was performed using one or more of the following dose reduction techniques: Automated exposure control, adjustment of the MA and/or kV according to patient size, or use of iterative reconstruction technique. FINDINGS: Calvarium/skull base: Small left frontal/medial supraorbital scalp contusion. No evidence of acute fracture or destructive lesion. Paranasal sinuses: No air fluid levels. Brain: No acute intracranial hemorrhage. Interval technically age indeterminate but favored remote infarcts involving the paramedian high right frontal and parietal lobes new from 2018. No mass lesion or mass effect. No hydrocephalus. Intracranial atherosclerosis. CT/CT head/brain wo con IMPRESSION: 1. No acute intracranial hemorrhage. 2. Small left frontal/medial supraorbital scalp contusion. 3. Interval infarcts involving the paramedian right frontal and parietal lobe superiorly which are new from 2018 but favor remote. If there is clinical concern for recent ischemia recommend MRI brain for further evaluation. Electronically authenticated by: MIKE ZEPEDA Date: 05/31/2024 09:26
--- NOTE | 2024-05-31 09:00 | XR_ITS ---
The [address] [address] Patient Name: ALEJO FLOYD MRN: [id number] date: 1960 Sex: M Assigned Patient Location: ER Current Patient Location: ED.MAIN Accession/Order Number: [id number] Exam Date: 05/31/2024 09:10 Report Date: 05/31/2024 09:42 At the request of: BONITA PITTMAN Procedure: XR wrist LT min 3V PROCEDURE: XR wrist LT min 3V COMPARISON: None. HISTORY: fall FINDINGS: BONES:No fracture, acute abnormality, or significant arthropathy. SOFT TISSUES:Negative. No visible soft tissue swelling. EFFUSION:None visible. OTHER: Negative. XR/XR wrist LT min 3V IMPRESSION: No acute fracture Electronically authenticated by: ALBINA DIANE Date: 05/31/2024 09:42
--- NOTE | 2024-05-31 09:01 | ED_ITS ---
HPI HPI - General Adult General Chief complaint: Fall Stated complaint: fall Time Seen by Provider: 05/31/24 08:58 Source: patient Mode of arrival: ambulance History of Present Illness HPI narrative: 63-year-old male presents for pain to his head, left wrist, and left toes. He tells me he fell in his home this morning, about an hour ago. No LOC and he does not complain of chest pain or shortness of breath. He complains of pain to the left third fourth and fifth toes as well as his left wrist. He believes it has been more than 10 years since he had a tetanus shot. Related Data Home Medications ?Medication ?Instructions ?Recorded ?Confirmed duloxetine 60 mg capsule,delayed 60 mg PO DAILY 10/14/22 09/30/23 release metoprolol succinate 50 mg 50 mg PO DAILY 10/14/22 09/30/23 tablet,extended release 24 hr omeprazole 40 mg capsule,delayed 40 mg PO DAILY 10/14/22 09/30/23 release oxycodone-acetaminophen 10 mg-325 1 tab PO Q4H PRN pain 10/14/22 09/30/23 mg tablet zolpidem 10 mg tablet 10 mg PO DAILY 10/14/22 09/30/23 Previous Rx's ?Medication ?Instructions ?Recorded azithromycin 500 mg tablet See Rx Instructions PO .COMPLEX #3 09/30/23 (Zithromax TRI-SURESH) tabs azithromycin 250 mg tablet See Rx Instructions PO .COMPLEX #6 02/18/24 (Zithromax Z-Suresh) tabs cephalexin 500 mg capsule 500 mg PO Q8H 7 days #21 caps 02/18/24 prednisone 20 mg tablet 40 mg (2 x 20 mg) PO DAILY 5 days 02/18/24 #10 tabs Allergies Allergy/AdvReac Type Severity Reaction Status Date / Time No Known Drug Allergies Allergy Verified 05/31/24 08:54 Opioid HPI Opioid Management Most Recent Opioid Data: Last Pain Scale 5 05/31/24 09:01 05/31/24 Review of Systems ROS Narrative A ten point review of systems is negative except as noted above. [facility] Medical History (Updated 05/31/24 @ 10:00 by Foreign Lyon MD) History of hypertension ?Z86.79 - Personal history of other diseases of the circulatory system (ICD- 10) History of throat cancer ?Z85.819 - Personal history of malignant neoplasm of unspecified site of lip, oral cavity, and pharynx (ICD-10) Hx of supraventricular tachycardia ?Z86.79 - Personal history of other diseases of the circulatory system (ICD- 10) History of emphysema ?J43.9 - Emphysema, unspecified (ICD-10) History of arthritis ?Z87.39 - Personal history of other diseases of the musculoskeletal system and connective tissue (ICD-10) Hx of TIA (transient ischemic attack) and stroke ?Z86.73 - Personal history of transient ischemic attack (TIA), and cerebral infarction without residual deficits (ICD-10) History of COPD ?Z87.09 - Personal history of other diseases of the respiratory system (ICD- 10) Surgical History (Updated 10/14/22 @ 11:46 by Albina Morrell) Hx of cholecystectomy ?Z90.49 - Acquired absence of other specified parts of digestive tract (ICD- 10) 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 - Acquired absence of spleen (ICD-10) Hx of hernia repair ?Z98.890 - Other specified postprocedural states (ICD-10) ?Z87.19 - Personal history of other diseases of the digestive system (ICD-10) Social History Smoking status: Heavy tobacco smoker Little interest or pleasure in doing things: not at all Feeling down, depressed, or hopeless: not at all Exam Narrative Exam Narrative: Nurses note and vital signs reviewed and patient is not hypoxic. General: The patient appears well and in no apparent distress. Patient is resting comfortably on cart. Skin: Warm, dry, no pallor noted. There is no rash noted. Head: Normocephalic, atraumatic; superficial abrasion just lateral to the left eye. C-spine nontender. Eye: Normal conjunctiva, no drainage Ears, Nose, Mouth, and Throat: oral mucosa is moist. Nares patent. Cardiovascular: Regular Rate and Rhythm Respiratory: Patient is in no distress, no accessory muscle use, lungs are clear to auscultation, no wheezing, rales or rhonchi. No chest wall tenderness Back: non-tender, including cervical, thoracic, and lumbar spines GI: Soft and nontender Musculoskeletal: No deformity in his left foot. He has some tenderness in his third fourth and fifth toes. His left wrist has full range of motion, no deformity. Neurological: A&O, normal speech Psychiatric: Cooperative Constitutional Vital Signs, click to edit/add: Last Vital Signs Temp 97.5 F L 05/31/24 08:54 Pulse 75 05/31/24 08:54 Resp 18 05/31/24 08:54 BP 132/83 05/31/24 08:54 Pulse Ox 97 05/31/24 08:54 O2 Del Method Room Air 05/31/24 08:54 Course Vital Signs Vital signs: Vital Signs Temperature 97.5 F L 05/31/24 08:54 Pulse Rate 75 05/31/24 08:54 Respiratory Rate 18 05/31/24 08:54 Blood Pressure 132/83 05/31/24 08:54 Pulse Oximetry 97 05/31/24 08:54 Oxygen Delivery Method Room Air 05/31/24 08:54 Temperature 97.5 F L 05/31/24 08:54 Pulse Rate 75 05/31/24 08:54 Respiratory Rate 18 05/31/24 08:54 Blood Pressure 132/83 05/31/24 08:54 Pulse Oximetry 97 05/31/24 08:54 Oxygen Delivery Method Room Air 05/31/24 08:54 Medical Decision Making MDM Narrative Medical decision making narrative: CAT scan and x-rays are negative and he is able to be discharged home. He is ambulatory. Treatment diagnosis and follow-up were discussed with the patient. Tetanus status is updated Differential Diagnosis Differential Diagnosis: Contusions, abrasions, intracranial hemorrhage, fracture Imaging Data CT scan - head: Radiologist's impression: ITS Impressions Foot X-Ray 05/31/24 09:00 IMPRESSION: Stable healing metatarsal fractures Electronically authenticated by: ALBINA DIANE Date: 05/31/2024 09:[address] 05/31/24 09:00 IMPRESSION: 1. No acute intracranial hemorrhage. 2. Small left frontal/medial supraorbital scalp contusion. 3. Interval infarcts involving the paramedian right frontal and parietal lobe superiorly which are new from 2018 but favor remote. If there is clinical concern for recent ischemia recommend MRI brain for further evaluation. Electronically authenticated by: MIKE ZEPEDA Date: 05/31/2024 09:26 Wrist X-Ray 05/31/24 09:00 IMPRESSION: No acute fracture Electronically authenticated by: ALBINA DIANE Date: 05/31/2024 09:42 Discharge Plan Discharge Chief Complaint: Fall Clinical Impression: Contusion of multiple sites, Fall Patient Disposition: Home, Self-Care Time of Disposition Decision: 09:59 Condition: Good Mode of Transportation: Private Vehicle Prescriptions / Home Meds: No Action duloxetine 60 mg capsule,delayed release(DR/EC) 60 mg PO DAILY metoprolol succinate 50 mg tablet extended release 24 hr 50 mg PO DAILY omeprazole 40 mg capsule,delayed release(DR/EC) 40 mg PO DAILY oxycodone-acetaminophen 10-325 mg tablet 1 tab PO Q4H PRN (Reason: pain) zolpidem 10 mg tablet 10 mg PO DAILY azithromycin [Zithromax TRI-SURESH] 500 mg tablet See Rx Instructions PO .COMPLEX Qty: 3 0RF Rx Instructions: For 250 mg dose pack: take 500 mg today (day 1), then 250 mg for 4 days (days 2-5) azithromycin [Zithromax Z-Suresh] 250 mg tablet See Rx Instructions .ROUTE .COMPLEX Qty: 6 0RF Rx Instructions: For 250 mg dose pack: take 500 mg today (day 1), then 250 mg for 4 days (days 2-5) cephalexin 500 mg capsule 500 mg PO Q8H 7 Days Qty: 21 0RF prednisone 20 mg tablet 40 mg PO DAILY 5 Days Qty: 10 0RF Print Language: Salvadorean Instructions: Fall Prevention for Older Adults (ED), Contusion in Adults (ED) Referrals: Gildardo Paredes MD [Primary Care Provider] - 1 week
[2024-05-31] MEDS: ADACEL DIPH,PERTUSS(ACELL),TET VAC/PF 0.5 ML ADULT SYRINGE IM (10:05)
--- NOTE | 2024-05-31 10:45 | SWNOTE1 ---
SW met with pt to discuss dc needs. Pt's sister in law in room as well. SW familiar with family and situation. SW did explain that at this time all tests have came back clear and weakness alone will not be qualifying diagnosis. Pt was sitting in chair and dressed ready to go. SW recommended that we look in to having home health services come in and do therapy in the home. Pt had already voiced he does not want to go to rehab anyways and he is agreeable to have HH come in. Pt does not have a preference. SW advised that SW will find a HH company in network with his insurance. SW to send to [facility]. SW advised pt and sister in law that SW will call pt once SW has everything set and that they do not have to wait. They voiced understanding. SW updated doctor.
--- NOTE | 2024-05-31 10:54 | SWNOTE1 ---
Referral sent to [facility]. Referral included face sheet, ED note, ED triage assessment, nursing notes, and diagnostic imaging.
--- NOTE | 2024-05-31 13:38 | SWNOTE1 ---
[facility] is able to accept. KIKO sent dc med rec and CRF to [facility]. KIKO called pt and updated him.
== END 2024-05-31 10:48 | disposition home or self-care (01) ==
PROVIDERS: Emergency Provider Emergency Medicine; PCP Family Medicine
DX: S00.03XA Contusion of scalp, initial encounter (principal); S05.12XA Contusion of eyeball and orbital tissues, left eye, initial encounter; W19.XXXA Unspecified fall, initial encounter; Z90.49 Acquired absence of other specified parts of digestive tract; Z90.81 Acquired absence of spleen; F17.200 Nicotine dependence, unspecified, uncomplicated; S00.212A Abrasion of left eyelid and periocular area, initial encounter; Z23 Encounter for immunization; S92.322D Displaced fracture of second metatarsal bone, left foot, subsequent encounter for fracture with routine healing; S92.332D Displaced fracture of third metatarsal bone, left foot, subsequent encounter for fracture with routine healing; S92.342D Displaced fracture of fourth metatarsal bone, left foot, subsequent encounter for fracture with routine healing; S92.352D Displaced fracture of fifth metatarsal bone, left foot, subsequent encounter for fracture with routine healing; X58.XXXD Exposure to other specified factors, subsequent encounter
CPT/HCPCS: 70450; 73110; 73630; 90471; 90715; 99284

== ENCOUNTER 2024-07-23 18:10 | Observation (INO) | payer MEDICARE, SELFPAY ==
[2024-07-23] VITALS (20 sets, daily range): BP systolic 162–223; BP diastolic 73–100; PULSE 75–119; TEMP 36.5; O2SAT 92–96; BMI 20.8
--- NOTE | 2024-07-23 18:26 | ECG_ITS ---
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 Measurements Intervals [place] Rate: 89 P: 78 [place]: 126 QRS: 78 QRSD: 82 T: 76 QT: 360 QTc: 407 Interpretive Statements 1100 Sinus rhythm 1102 Sinus arrhythmia 9110 normal ECG Compared to ECG 02/18/2024 12:49:15 Sinus tachycardia no longer present Electronically Signed On 07-24-2024 7:46:26 EDT by MELANI DE LEÓN M.D.
--- NOTE | 2024-07-23 18:28 | ED_ITS ---
HPI HPI - General Adult General Chief complaint: Fall Stated complaint: FELL Time Seen by Provider: 07/23/24 18:25 Source: patient Mode of arrival: Wheelchair History of Present Illness HPI narrative: The patient is a 63-year-old female is coming to the ER after she had woke yesterday at 2 AM, the patient initially mentioned that he trying to get out of the bed he just took 1 steps and does not remember tripping but he fell to the floor hitting his chest, the patient initially mentioned that when he woke up he does not remember tripping and it was noted that he is not able to bend his left leg. The patient does have a history of mini stroke and he said few years ago that did not leave him with any significant weakness When asked about any dysarthria and any difficulty speaking he mentioned that he have a history of laryngeal cancer and sometime he have those and he is not sure if he have a new symptoms or not. The patient has been having right-sided chest wall pain and left foot pain since the fall and he is not able to ambulate. Related Data Home Medications ?Medication ?Instructions ?Recorded ?Confirmed duloxetine 60 mg capsule,delayed 60 mg PO DAILY 10/14/22 09/30/23 release metoprolol succinate 50 mg 50 mg PO DAILY 10/14/22 09/30/23 tablet,extended release 24 hr omeprazole 40 mg capsule,delayed 40 mg PO DAILY 10/14/22 09/30/23 release oxycodone-acetaminophen 10 mg-325 1 tab PO Q4H PRN pain 10/14/22 09/30/23 mg tablet zolpidem 10 mg tablet 10 mg PO DAILY 10/14/22 09/30/23 Previous Rx's ?Medication ?Instructions ?Recorded azithromycin 500 mg tablet See Rx Instructions PO .COMPLEX #3 09/30/23 (Zithromax TRI-SURESH) tabs azithromycin 250 mg tablet See Rx Instructions PO .COMPLEX #6 02/18/24 (Zithromax Z-Suresh) tabs cephalexin 500 mg capsule 500 mg PO Q8H 7 days #21 caps 02/18/24 prednisone 20 mg tablet 40 mg (2 x 20 mg) PO DAILY 5 days 02/18/24 #10 tabs Allergies Allergy/AdvReac Type Severity Reaction Status Date / Time No Known Drug Allergies Allergy Verified 05/31/24 08:54 Opioid HPI Opioid Management Most Recent Opioid Data: Last Pain Scale 5 05/31/24 09:01 05/31/24 Review of Systems ROS Status of ROS 10 or more systems reviewed and unremark able except as noted in history and below [facility] Medical History (Updated 07/23/24 @ 18:35 by Jacqueline Jj MD) History of hypertension ?Z86.79 - Personal history of other diseases of the circulatory system (ICD- 10) History of throat cancer ?Z85.819 - Personal history of malignant neoplasm of unspecified site of lip, oral cavity, and pharynx (ICD-10) Hx of supraventricular tachycardia ?Z86.79 - Personal history of other diseases of the circulatory system (ICD- 10) History of emphysema ?J43.9 - Emphysema, unspecified (ICD-10) History of arthritis ?Z87.39 - Personal history of other diseases of the musculoskeletal system and connective tissue (ICD-10) Hx of TIA (transient ischemic attack) and stroke ?Z86.73 - Personal history of transient ischemic attack (TIA), and cerebral infarction without residual deficits (ICD-10) History of COPD ?Z87.09 - Personal history of other diseases of the respiratory system (ICD- 10) Surgical History (Updated 10/14/22 @ 11:46 by Ketan Morrell) Hx of cholecystectomy ?Z90.49 - Acquired absence of other specified parts of digestive tract (ICD- 10) 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 - Acquired absence of spleen (ICD-10) Hx of hernia repair ?Z98.890 - Other specified postprocedural states (ICD-10) ?Z87.19 - Personal history of other diseases of the digestive system (ICD-10) Social History Smoking status: Heavy tobacco smoker Little interest or pleasure in doing things: not at all Feeling down, depressed, or hopeless: not at all Exam Narrative Exam Narrative: Nurses notes and vital signs reviewed and patient is not hypoxic. General: Well-appearing and in no apparent distress. Skin: Warm, dry, no pallor noted. No rash. Head: Normocephalic, atraumatic. Neck: Supple, non-tender. Ears, Nose, Mouth, and Throat: Patient has very bad dental hygiene and some left sided mouth deviation when smilng Cardiovascular: Regular Rate and Rhythm without murmur, gallop or rub. Respiratory: No accessory muscle use or respiratory distress. Lungs are clear to auscultation, no wheezing, rales or rhonchi Chest Wall: no tenderness Back: No midline thoracic or lumbar vertebral tenderness. No CVA tenderness Musculoskeletal: normal ROM, no calf or popliteal tenderness, no lower extremity edema/swelling, left foot shows some tenderness but there is no obvious swelling GI: Abdomen is soft, non-distended. Normal bowel sounds. No masses appreciated. No tenderness to palpation. No rebound, guarding, or rigidity noted. Neurological: A&O x4. No cranial nerve dysfunction observed. , The patient not able to bend his left knee and when he lifting his left leg it would drift slightly to the floor without hitting the bed Left arm some weakness with handgrip and the patient to have Nancy drift also with the left arm and does not hit the bed Psychiatric: Cooperative and interactive. Normal mood and affect. Constitutional Vital Signs, click to edit/add: Last Vital Signs Temp 97.7 F 07/23/24 18:16 Pulse 115 H 07/23/24 18:16 Resp 22 H 07/23/24 18:16 BP 171/99 H 07/23/24 18:20 Pulse Ox 96 07/23/24 18:16 Course Vital Signs Vital signs: Vital Signs Temperature 97.7 F 07/23/24 18:16 Pulse Rate 115 H 07/23/24 18:16 Respiratory Rate 22 H 07/23/24 18:16 Pulse Oximetry 96 07/23/24 18:16 Temperature 97.7 F 07/23/24 18:16 Pulse Rate 115 H 07/23/24 18:16 Respiratory Rate 22 H 07/23/24 18:16 Blood Pressure 171/99 H 07/23/24 18:20 Pulse Oximetry 96 07/23/24 18:16 Medical Decision Making [facility] Narrative Medical decision making narrative: Patient is getting evaluated at 6:30 PM and it is almost 16 hours after the start of his symptoms and almost 20 hours after his last known well when he went to sleep last night CAT scan of the head ordered for possible stroke rule out Discharge Plan Discharge Patient Disposition: Still a Patient
--- OUTSIDE RECORDS SUMMARY | 2024-07-23 18:29 | XMS_ITS | CCD ---
Author Organization [facility] ion [facility] Care Team Providers Care C Web Developer Name Role Phone AMSTUTZ, HASEEB W Unavailable Unavailable AMSTUTZ, HASEEB W Unavailable Unavailable Agoro, Kamaldeen O Unavailable Unavailable AGORO, KAMALDEEN O Unavailable Unavailable AGORO, KAMALDEEN O Unavailable Unavailable GILDARDO LACY Unavailable Unavailabl e RAYCHAUDHURI, RATUL Unavailable Unavailable NOVAKOVIC, MAC L Unavailable Unavailable BRANDON MAC L Unavailable Unavailable GILDARDO LACY Unavailable Unavailabl e AOUAD, ROSLYN T Unavailable Unavailable JOSÉ, AMAIRANI M Unavailable Unavailable Gildardo Lacy Primary Care Provider Esdras Cash MD Unavailable [phone] Josemanuel SOFTWARE TECHNICAL LEAD.SILVINO, Nathaly Unavailable [phone] He CHAVEZ Cynthia Unavailable [phone] Kathrine Carpenter MD Unavailable Amira Quinonez Unavailable Unavailable BONITA PITTMAN Primary Care Unavailable GILDARDO LACY Referring Unavailable CHARLES MORGAN Admitting Unavailable CHARLES MORGAN Attending Unavailable GILDARDO LACY Primary Care Unavailable CHARLENE ARANA Referring Unavailable DAMIEN YU Admitting Unavailable DAMIEN YU Attending Unavailable Gildardo Lacy Unavailable Unavailable Unavailable Gildardo Lacy Primary Care Provider [phone] Esdras Cash MD Unavailable [phone] Josemanuel SOFTWARE TECHNICAL LEAD.SILVINO Nathaly Unavailable He CHAVEZ Cynthia Unavailable Kathrine Carpenter MDip Unavailable Neely, Dr. Carmen Schneider Attending Sarah vailable Neely, Dr. Carmen Schneider Referring Sarah vailable Naderer, Dr. Gildardo Mccall Primary Care Unavai lable Shilpar, Gildardo Butler Primary Care Provider [phone] He CHAVEZ, Cynthia Unavailable Naderer, Gildardo Butler Primary Care Provider [phone] Shailesh VO, Esdras R Unavailable [phone] Josemanuel SOFTWARE TECHNICAL LEAD.PRIVATE EYE, Nathaly Unavailable He CHAVEZ, Cynthia Unavailable Ron VO, Kathrine Сергей Unavailable [phone] Amira Quinonez Unavailable Unavailable Naderer, Dr[facility] Dr. Carmen Schneider Attending Sarah vailable Neely, Dr. Carmen Schneider Referring Sarah vailable Naderer, Dr. Gildardo Mccall [facility], Dr. Carmen Schneider Attending Sarah vailable Neely, Dr. Carmen Schneider Referring Sarah vailable NADERER, DR GILDARDO Butler Primary Care Unavailable DOMINIC ., ELENI Admitting Unavailable COUCH, KENY Consulting Unavailable DOMINIC ., ELENI Attending Unavailable DOMINIC ., ELENI Consulting Unavailable MISC, DR PRESLEY Attending Unavailable MISC, DR PRESLEY Admitting Unavailable MISC, DR PRESLEY Consulting Unavailable NADERER, DR GILDARDO Butler Primary Care Unavailable ZIEBER, DR BELLA Villarreal Consulting Unavailable NEELY, DR CARMEN May Admitting Unavailable NADERER, DR GILDARDO Butler Primary Care Unavailable NEELY, DR CARMEN May Attending Unavailable NEELY, DR CARMEN May Consulting Unavailable ZIEBER, DR BELLA Villarreal Consulting Unavailable NADERER, DR GILDARDO Butler Attending Unavailable NADERER, DR GILDARDO Butler Primary Care Unavailable NADERER, DR GILDARDO Butler Admitting Unavailable NADERER, DR GILDARDO Butler Consulting Unavailable ZIEBER, DR BELLA Villarreal Consulting Unavailable NADERER, DR GILDARDO Butler Primary Care Unavailable SHAIKH Vinnie ORTEGA Attending Unavailable FAWWAD, DE LEON H Admitting Unavailable FAWWAD, DE LEON H Consulting Unavailable REGGIE, DR GILDARDO Butler Primary Care Unavailable FAWWAD, DE LEON H Admitting Unavailable FAWWAD, DE LEON H Attending Unavailable HOOD ., MR CASSIE Attending Unavailable HOOD ., MR MATTHEWS Admitting Unavailable NADERER, DR GILDARDO Butler Primary Care Unavailable REGGIE, DR GILDARDO Butler Primary Care Unavailable DOMINIC ., ELENI Admitting Unavailable DOMINIC ., ELENI Attending Unavailable DOMINIC ., ELENI Consulting Unavailable EMILY MUNROE Consulting Unavailable He CHAVEZ, Cynthia Unavailable Reggie VO, Gildardo Mccall Primary Care Provider Gildardo Lacy Primary Care Provider MD Gildardo Lacy Primary Care Provider MD Carmen Neely Attending Provider VALE CHIRINOS Attending Unavailable GILDARDO LACY Primary Care Unavailable CARMEN NEELY Attending Unavailable KALPANAEREGILDARDO Villarreal Primary Care UnavailCARMEN Lea Attending Unavailable CARMEN NEELY Referring Unavailable GILDARDO LACY Primary Care Unavailkellie Cutler RN, Cynthia Unavailable [phone] Gildardo Lacy MD Primary Care Provider Carmen Neely Attending Unavailable Carmen Neely Admitting Unavailable Gildardo Lacy Primary Care Unavailable Gildardo Lacy MD Primary Care Provider [phone] Gildardo Lacy MD Primary Care Provider CASSIE HOOD Attending Unavailable NADERER, GILDARDO Attending Unavailable NADEREGILDARDO Villarreal Attending Unavailable JR. DUARTE, MARTIN Padgett Attending Unavaila graciela CHEN JR., MARTIN Padgett Referring Unavaila graciela CHEN JR., MARTIN Padgett Attending Unavaila graciela CHEN JR., MARTIN Padgett Attending Unavaila CASSIE Perry Attending Unavailable CASSIE HOOD Attending Unavailable NADEREPhil, GILDARDO Attending Unavailable CASSIE HOOD Attending Unavailable NADGILDARDO STONE Attending Unavailable CASSIE HOOD Attending Unavailable Cassie Crum Unavailable NADERER, GILDARDO A Primary Care Unavailable ESDRAS CASH Referring Unavailable NADERER, GILDARDO A Primary Care Unavailable ESDRAS CASH Referring Unavailable ESDRAS CASH Attending Unavailable NADERER, GILDARDO A Primary Care Unavailable ESDRAS CASH Referring Unavailable NADERER, GILDARDO A Primary Care Unavailable Kathrine CARPENTER Attending Unavailable NADERER, GILDARDO A Primary Care Unavailable ESDRAS CASH Referring Unavailable NADERER, GILDARDO A Primary Care Unavailable Kathrine CARPENTER Attending Unavailable ESDRAS CASH Referring Unavailable NADERER, GILDARDO A Primary Care Unavailable HEBERT MIGUEL Attending Unavailable CASSIE HOOD Referring Unavailable NADERER, GILDARDO A Primary Care Unavailable HEBERT MIGUEL Referring Unavailable ESDRAS CASH Attending Unavailable NADELOYR, GILDARDO A Primary Care Unavailable ESDRAS CASH Referring Unavailable Kathrine CARPENTER Attending Unavailable NADELOYR, GILDARDO A Primary Care Unavailable ESDRAS CASH Referring Unavailable Medications Current Medications Medication Drug Class(es) Dates Sig (Normalized) Sig (Original) acetaminophen 500 mg oral tablet (1 source) Start: 08-07-2020 Acetaminophen Active 500 MG PO As Directed August 07, 2020 12:00am acetaminophen 325 mg / oxyCODONE hydrochloride 10 mg oral tablet (20 sources) Opioid Agonist Start: 10-02-2020 End: 07-24-2024 take 1 tablet by mouth every six hours as needed oxyCODONE-acetamino phen (PERCOCET 10) 10-325 mg tablet Take 1 tablet by mouth four times daily as needed. 10/02/2020 Active Start: 10-02-2020 take 1 tablet by kadie th every six hours as needed oxyCODONE-acetaminophen (PERCOCET) 5-325 mg tablet Take 1 tablet by mouth four times daily as needed. 0 10/02/2020 Active Start: 08-07-2020 Oxycodone-Acet aminophen Active 1 TAB PO As Directed August 07, 2020 12:00am take 1 tablet by kadie th every six hours as needed oxyCODONE-acetaminophen (Percocet) 5-325 mg tablet Take 1 tablet by mouth every 6 hours if needed. Active take 1 tablet by kadie th every six hours as needed for pain oxyCODONE-Acetaminophen 10-325 MG Oral Tablet TAKE 1 TABLET EVERY 6 HOURS NEEDED FOR PAIN. Quantity: 0 Refills: 0 Ordered: 10-Jun-2022 DO Active Comment on above: Take 1 tablet by kadie th four times daily as needed. albuterol 0.83 mg/ml inhalation solution (20 sources) beta2-Adrenergic Agonist Start: 10-21-2023 End: 02-29-2024 albuterol (2.5 MG/3ML) 0.083% nebulizer solution Indications: Chronic obstructive pulmonary disease, unspecified COPD type ([facility]) Take 3 mL (2.5 mg) by nebulization every 4 (four) hours if needed for wheezing or shortness of breath 75 mL 5 02/29/2024 Active Start: 08-07-2020 Albuterol Sulf ate Active 2.5 MG INHALATION As Directed August 07, 2020 12:00am Start: 08-07-2020 Albuterol Sulf ate Active 2 PUFF INHALATION As Directed August 07, 2020 12:00am Start: 02-15-2018 albuterol (PRO VENTIL) 2.5 mg /3 mL (0.083 %) nebulizer solution 2.5 mg. 02/15/2018 Active albuterol HFA (P ROVENTIL HFA, VENTOLIN HFA) 90 mcg/actuation inhaler q 4 HR. Active albuterol 2.5 mg /3 mL (0.083 %) nebulizer solution Inhale. Active take 2 puff(s) by in halation three times daily albuterol 90 mcg/actuation inhaler Inhale 2 puffs 3 times a day. Active Albuterol 90 MCG /ACT AERS Quantity: 0 Refills: 0 Ordered: 27-Nov-2021 DO Active As directed. Comment on above: 2.5 mg. q 4 HR. albuterol 0.833 mg/ml / ipratropium bromide 0.167 mg/ml inhalation solution (20 sources) Anticholinergic, beta2-Adrenergic Agonist Start: 8 ipratropium-albuter ol (DUONEB) 0.5 mg-3 mg(2.5 mg base)/3 mL nebu Inhale 3 mL as instructed as needed for wheezing/shortness of breath. 02/15/2018 Active Comment on above: Inhale 3 mL as instr ucted. Inhale 3 mL as instr ucted as needed for wheezing/shortness of breath. aspirin 81 mg oral tablet (20 sources) Platelet Aggregation Inhibitor, Nonsteroidal Anti-inflammatory Drug Start: take 81 mg by mouth once daily Aspirin Active 81 MG PO Daily August 07, 2020 12:00am take 1 tablet by mouth once ladarius y aspirin, enteric coated (ASPIRIN, ENTERIC COATED) 81 mg EC tablet Take 81 mg by mouth once daily. Active Comment on above: Take 81 mg by mouth once daily. atorvastatin 20 mg oral tablet (20 sources) HMG-CoA Reductase Inhibitor Start: 06-10-2022 atorvastatin (LIPITOR) 20 mg tablet Take by mouth. 06/10/2022 Active End: 11-17-2023 take 1 tablet by mouth once daily atorvastatin (Lipitor) 40 mg tablet Take 1 tablet (40 mg) by mouth once daily. 11/17/2023 Discontinued (Dose adjustment) Comment on above: Take by mouth. 24 hr buPROPion hydrochloride 300 mg extended release oral tablet (20 sources) Aminoketone Start: 08-07-2020 End: 03-10-2023 take 300 mg by mouth once daily Bupropion Hcl Active 300 MG PO Daily August 07, 2020 12:00am buPROPion XL (WE LLBUTRIN XL) 300 mg 24 hr tablet q 24 HR. 0 Active Comment on above: q 24 HR. Take 300 mg by mouth once daily. celecoxib 200 mg oral capsule (20 sources) Nonsteroidal Anti-inflammatory Drug Start: End: take 1 capsule by mouth twice daily at mealtime as needed for pain celecoxib (CeleBREX) 200 MG capsule Indications: Thoracic spondylosis TAKE 1 CAPSULE BY MOUTH TWICE DAILY WITH FOOD NEEDED for mild pain 60 capsule 5 03/30/2024 Active ciclopirox 0.0077 mg/mg topical gel (1 source) Start: Ciclopirox Active 1 APPLIC TOPICAL Twice daily August 07, 2020 12:00am diphenhydrAMINE hydrochloride 2.5 mg/ml oral solution (9 sources) Histamine-1 Receptor Antagonist End: diphenhydrAMINE 12.5 mg/5 mL liquid Take by mouth. 11/17/2023 Discontinued (Therapy completed) take 5 mL by mouth three times d aily diphenhydrAMINE HCl - 12.5 MG/5ML Oral Liquid TAKE 5 ML THREE TIMES A DAY Quantity: 0 Refills: 0 Ordered: 27-Nov-2021 DO Active DULoxetine 60 mg delayed release oral capsule (20 sources) Serotonin and Norepinephrine Reuptake Inhibitor Start: 08-04-2023 take 1 capsule by mouth once daily DULoxetine (Cymbalta) [address] capsule Take 60 mg by mouth Daily 08/04/2023 Active DULoxetine (CYMB MARQUITA) 30 mg capsule q 24 HR. Active take 1 capsule by mouth once hailey ly DULoxetine (Cymbalta) [address] capsule Take 1 capsule (30 mg) by mouth once daily. Active Comment on above: q 24 HR. fluticasone propionate 0.05 mg/actuat metered dose nasal spray (20 sources) Corticosteroid Start: 08-07-2020 Fluticasone Propionate Active 50 MCG INTRANASAL As Directed August 07, 2020 12:00am Start: 07-05-2020 End: 04-17-2022 fluticasone (FLONASE) 50 mcg /actuation nasal spray 2 Sprays once daily. 07/05/2020 04/17/2022 Discontinued (Course of therapy completed) End: 05-06-2023 fluticasone (Flonase) 50 mcg /actuation nasal spray Administer into affected nostril(s). 0 05/06/2023 Discontinued (Discontinued by another clinician) Fluticasone Prop ionate 50 MCG/ACT Nasal Suspension As directed. Quantity: 0 Refills: 0 Ordered: 27-Nov-2021 DO Active Comment on above: 2 Sprays once daily. 14 actuat fluticasone furoate 0.1 mg/actuat / vilanterol 0.025 mg/actuat dry powder inhaler (20 sources) Corticosteroid, beta2-Adrenergic Agonist Start: 02-29-2024 End: 02-29-2024 take 1 puff(s) by mouth once daily Fluticasone Furoate-Vilanterol 100-25 MCG/ACT aerosol powder Indications: Chronic obstructive pulmonary disease, unspecified COPD type (CMS/HCC) INHALE 1 PUFF BY MOUTH DAILY at the same time each day 60 each 5 02/29/2024 Active Start: 02-29-2024 take 1 puff(s) by in halation once daily Fluticasone Furoate-Vilanterol (Breo Ellipta) 100-25 MCG/ACT aerosol powder Indications: Chronic obstructive pulmonary disease, unspecified COPD type (CMS/HCC) Inhale 1 puff 1 (one) time each day at the same time each 5 02/29/2024 Active Start: 02-29-2024 take 1 puff(s) by in halation once daily Fluticasone Furoate-Vilanterol (Breo Ellipta) 100-25 MCG/ACT aerosol powder Indications: Chronic obstructive pulmonary disease, unspecified COPD type (CMS/HCC) Inhale 1 puff 1 (one) time each day at the same time 28 each 5 02/29/2024 Active Start: 05-16-2021 take 1 puff(s) by mo ut once daily BREO ELLIPTA 100-25 mcg/dose inhaler INHALE 1 PUFF BY MOUTH ONCE DAILY 05/16/2021 Active take 1 puff(s) by in halation once daily fluticasone-vilanterol (BREO ELIPTA) 100-25 MCG/INH inhaler 1 puff 1 (one) time each day at the same time. Active fluticasone furo ate-vilanteroL (Breo Ellipta) 100-25 mcg/dose inhaler Inhale. Active Breo Ellipta 100 -25 MCG/INH AEPB as directed Quantity: 0 Refills: 0 Ordered: 27-Nov-2021 DO Active Comment on above: INHALE 1 PUFF BY KADIE ONCE DAILY megestrol acetate 40 mg/ml oral suspension (20 sources) Progestin Start: 03-30-2024 End: 04-04-2024 take 20 mL by mouth once daily megestrol (MEGACE) 400 mg/10 mL (40 mg/mL) suspension take 20 milliliters by mouth once daily 480 mL 1 04/04/2024 Active Start: 05-08-2023 End: 06-19-2023 take 20 mL by mouth once daily megestrol (MEGACE) 400 mg/10 mL (40 mg/mL) suspension take 20 milliliters by mouth once daily 480 mL 1 06/19/2023 Active Start: 12-30-2022 End: 03-25-2023 take 20 mL by mouth once daily megestrol (MEGACE) 400 mg/10 mL (40 mg/mL) suspension take 20 milliliters by mouth once daily 480 mL 1 02/11/2023 03/25/2023 Discontinued Start: 11-13-2022 take 20 mL by mouth once daily megestrol (MEGACE) 400 mg/10 mL (40 mg/mL) suspension take 20 milliliters by mouth once daily 480 mL 1 11/13/2022 Active Start: 02-06-2021 End: 01-16-2022 take 20 mL by mouth once daily megestrol (MEGACE) 400 mg/10 mL (40 mg/mL) suspension take 20 milliliters by mouth once daily 480 mL 1 02/06/2021 07/30/2021 Discontinued take 1 tablet by kadie th once daily megestrol (Megace) 20 MG tablet Take 20 mg by mouth Daily. Active End: 11-17-2023 megestrol 400 mg/10 mL (40 m g/mL) suspension Take by mouth once daily. 11/17/2023 Discontinued (Therapy completed) Comment on above: take 20 milliliters by mouth once daily meloxicam 15 mg oral tablet (1 source) Nonsteroidal Anti-inflammatory Drug Start: take 15 mg by mouth once daily Meloxicam Active 15 MG PO Daily August 07, 2020 12:00am 24 hr metoprolol succinate 50 mg extended release oral tablet (20 sources) beta-Adrenergic Airam Start: take 1 tablet by mouth once daily metoprolol succinate ER (TOPROL XL) 50 mg 24 hr tablet Take 50 mg by mouth once daily. 05/26/2022 Active metoprolol succi terri XL (Toprol-XL) 25 MG 24 hr tablet Metoprolol Succinate ER Active End: 02-25-2022 metoprolol succinate ER (TOP ROL XL) 50 mg 24 hr tablet q 24 HR. 02/25/2022 Discontinued (Course of therapy completed) Comment on above: q 24 HR. Take 50 mg by mouth once daily. omeprazole 40 mg delayed release oral capsule (20 sources) Proton Pump Inhibitor Start: 06-30-2022 take 1 capsule by mouth twice daily omeprazole (PRILOSEC) 40 mg capsule Take 40 mg by mouth twice daily. 06/30/2022 Active Start: 08-07-2020 End: 11-17-2023 take 40 mg by mouth once daily Omeprazole Active 40 MG PO Daily August 07, 2020 12:00am End: 02-25-2022 take 40 mg by mouth once daily omeprazole magnesium (P RILOSEC ORAL) Take 40 mg by mouth once daily. 02/25/2022 Discontinued (Course of therapy completed) omeprazole magne sium (PRILOSEC ORAL) Take by mouth. 0 Active Comment on above: Take by mouth. Take 40 mg by mouth once daily. Take 40 mg by mouth twice daily. potassium chloride 10 meq extended release oral tablet (20 sources) Start: 08-07-2020 End: 07-28-2024 take 1 tablet by mouth once daily potassium chloride CR (Klor-Con) 10 MEQ ER tablet Indications: Hyponatremia Take 1 tablet (10 mEq) by mouth Daily 30 tablet 11 07/29/2023 07/28/2024 Active End: 01-27-2023 potassium chloride SR (MICRO -K) 10 mEq CR capsule Take 10 mEq by mouth. 01/27/2023 Discontinued Comment on above: Take 10 mEq by mouth . topiramate 100 mg oral tablet (20 sources) Start: 07-23-2020 take 1 tablet by mouth twice daily topiramate (TOPAMAX) 100 mg tablet Take 100 mg by mouth twice daily. 07/23/2020 Active Start: 07-23-2020 take 50 mg by mouth twice ladarius y Topiramate Active 50 MG PO Twice daily August 07, 2020 12:00am Start: 07-23-2020 take 1 tablet by kadie th once daily topiramate (TOPAMAX) 50 mg tablet Take 50 mg by mouth once daily. 0 07/23/2020 Active Comment on above: Take 1 (one) Tablet by mouth two times daily Take 50 mg by mouth once daily. Take 100 mg by mouth twice daily. zolpidem tartrate 10 mg oral tablet (20 sources) gamma-Aminobutyric Acid-ergic Agonist Start: 01-31-2019 End: 03-23-2024 take 10 mg by mouth every twenty-four hours as needed zolpidem (AMBIEN) 10 mg Take 10 mg by mouth at bedtime as needed. 01/31/2019 Active Start: 01-31-2019 zolpidem (AMBI EN) 10 mg q 24 HR. 0 01/31/2019 Active Comment on above: q 24 HR. Take 10 mg by mouth at bedtime as needed. Completed/Discontinued Medications Medication Drug Class(es) Dates Sig (Normalized) Sig (Original) amiodarone hydrochloride 200 mg oral tablet (20 sources) Antiarrhythmic Start: 02-16-2018 End: 07-16-2022 take 1 tablet by mouth once daily amiodarone (PACERONE) 200 mg tablet Take 200 mg by mouth once daily. 02/16/2018 07/16/2022 Discontinued (Discontinued by another Health Care Provider) Start: 02-16-2018 amiodarone (PA CERONE) 200 mg tablet q 24 HR. 0 02/16/2018 Active Comment on above: q 24 HR. Take 200 mg by mouth once daily. amLODIPine 5 mg oral tablet (20 sources) Dihydropyridine Calcium Channel Airam Start: End: take 1 tablet by mouth once daily amLODIPine (NORVASC) 5 mg tablet Take 5 mg by mouth once daily. 06/28/2020 01/16/2022 Discontinued Comment on above: Take 5 mg by mouth o nce daily. diphenhydrAMINE 12.5 mg/5 mL lidocaine visc 2% MAALOX 200-200-20 mg/5 mL nystatin prednisoLONE 15 mg/5 mL oral liquid 1:1:1:1:1 (CPD) (3 sources) Start: End: take 5 mL by mouth every six hours as needed diphenhydrAMINE 12.5 mg/5 mL lidocaine visc 2% MAALOX 200-200-20 mg/5 mL nystatin prednisoLONE 15 mg/5 mL oral liquid 1:1:1:1:1 (CPD) Take 5 mL by mouth every 6 hours as needed. Swish and swallow 300 mL 1 11/26/2021 12/26/2021 Start: 11-26-2021 End: 12-26-2021 take 5 mL by mouth every six hours as needed diphenhydrAMINE 12.5 mg/5 mL lidocaine visc 2% MAALOX 200-200-20 mg/5 mL nystatin prednisoLONE 15 mg/5 mL oral liquid 1:1:1:1:1 (CPD) Take 5 mL by mouth every 6 hours as needed. Swish and swallow 300 mL 1 11/26/2021 12/26/2021 Active Comment on above: Take 5 mL by mouth e very 6 hours as needed. Swish and swallow iv contrast (will be provided with radiology test) (2 sources) Start: 02-26-20 End: 02-26-20 inject 1 dose intravenously once, then inject 1 dose intravenously once iv contrast (will be provided with radiology test) Inject 1 Each intravenously one time only for [address] Neck W IVCON No IV access, insert saline lock prior to the sedation, infusion, injection for imaging exam. Discontinue saline lock post exam. If Pt. has a central line or IVAD, may access for administration according to line specific nursing protocol. Once exam is complete flush line and de-access according to line specific nursing protocol in the CT contrast administration guidelines link. 1 Each 0 02/25/2022 02/25/2022 Start: 02-25-2022 End: 02-26-2022 iv contrast (will be provide d with radiology test) CT Chest W -Inject, intravenously, once for 1 dose.No IV access, insert saline lock prior to the beginning of sedation, infusion, injection of imaging exam. Discontinue saline lock post exam. If Pt. has a central line or IVAD, may access for administration according to line specific nursing protocol. Once exam is complete flush line and de-access according to line specific nursing protocol in the CT contrast administration guidelines link. 1 Each 0 02/25/2022 02/26/2022 Comment on above: Inject 1 Each intrav enously one time only for [address] Neck W IVCON No IV access, insert saline lock prior to the sedation, infusion, injection for imaging exam. Discontinue saline lock post exam. If Pt. has a central line or IVAD, may access for administration according to line specific nursing protocol. Once exam is complete flush line and de-access according to line specific nursing protocol in the CT contrast administration guidelines link. CT Chest W -Inject, intravenously, once for 1 dose.No IV access, insert saline lock prior to the beginning of sedation, infusion, injection of imaging exam. Discontinue saline lock post exam. If Pt. has a central line or IVAD, may access for administration according to line specific nursing protocol. Once exam is complete flush line and de-access according to line specific nursing protocol in the CT contrast administration guidelines link. ketorolac tromethamine 10 mg oral tablet (12 sources) Nonsteroidal Anti-inflammatory Drug, Cyclooxygenase Inhibitor Start: 11-21-19 End: 05-06-19 take 1 tablet by mouth three times daily for pain keTORolac (TORADOL) 10 mg tablet take 1 tablet by mouth three times a day if needed for pain for 5 days 11/20/2021 01/16/2022 Discontinued Comment on above: take 1 tablet by kadie th three times a day if needed for pain for 5 days lansoprazole (9 sources) Proton Pump Inhibitor End: 08-06-19 lansoprazole (PREVACID ORAL) Take by mouth. 08/05/2021 Discontinued (Changing Therapy/Dosage Form) End: 08-05-2021 lansoprazole (PREVACID ORAL) Take by mouth. 0 08/05/2021 Discontinued (Changing Therapy/Dosage Form) lansoprazole (DC EVACID ORAL) Take by mouth. 0 Active Comment on above: Take by mouth. ondansetron 8 mg disintegrating oral tablet (20 sources) Serotonin-3 Receptor Antagonist Start: 08-03-19 End: 02-26-20 take 1 tablet by mouth every eight hours as needed ondansetron orally disintegrating (ZOFRAN ODT) 8 mg disintegrating tablet Take 1 tablet by mouth every 8 hours as needed for nausea/vomiting. 90 tablet 1 08/02/2021 02/25/2022 Discontinued (Course of therapy completed) End: 05-06-2023 ondansetron (Zofran) 8 mg ta blet Take by mouth. 0 05/06/2023 Discontinued (Discontinued by another clinician) Comment on above: Take 1 tablet by kadie th every 8 hours as needed for nausea/vomiting. petrolatum 0.41 mg/mg topical ointment (20 sources) Start: 2021 End: 2021 white petrolatum (AQUAPHOR) 41 % topical ointment Apply to affected area twice daily. 1 g 07/02/2021 02/18/2022 Discontinued Comment on above: Apply to affected ar ea twice daily. prochlorperazine 10 mg oral tablet (20 sources) Phenothiazine Start: 2021 End: 2021 take 1 tablet by mouth every six hours as needed prochlorperazine (COMPAZINE) 10 mg tablet Take 1 tablet by mouth every 6 hours as needed. 100 tablet 1 08/02/2021 02/25/2022 Discontinued (Course of therapy completed) End: 05-06-2023 take 1 tablet by mouth once daily prochlorperazine (Compazine) 10 mg tablet Take 1 tablet (10 mg) by mouth once daily. 0 05/06/2023 Discontinued (Discontinued by another clinician) Comment on above: Take 1 tablet by kadie th every 6 hours as needed. rizatriptan 10 mg oral tablet (20 sources) Serotonin-1b and Serotonin-1d Receptor Agonist End: 01-17-20 take 1 tablet by mouth once daily rizatriptan (MAXALT) 10 mg tablet Take 10 mg by mouth once daily. 01/16/2022 Discontinued Comment on above: rizatriptan 10 mg ta blet Take by oral route. Take 10 mg by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 above: Order Comment: Speci men Type: BLOOD SPECIMENOrdering Facility: [facility] Address: [address] [place] [address] Performed By: #### 5 7021-8 ####[facility] LABCLIA [id number] [place] [address] Eosinophils/100 WBC (Bld) 0.3 % Normal [facility] Comment on above: Order Comment: Speci men Type: BLOOD SPECIMENOrdering Facility: [facility] Address: [address] [place] [address] Performed By: #### 5 7021-8 ####[facility] LABCLIA [id number] [place] [address] Erythrocyte distribution width (RBC) [Ratio] 15.7 % High 11.5-15.0 [facility] Comment on above: Order Comment: Speci men Type: BLOOD SPECIMENOrdering Facility: [facility] Address: [address] [place] [address] Performed By: #### 5 7021-8 ####[facility] LABCLIA [id number] [place] [address] Hematocrit (Bld) [Volume fraction] 41.9 % Normal 39.0-51.0 [facility] Comment on above: Order Comment: Speci men Type: BLOOD SPECIMENOrdering Facility: [facility] Address: [address] [place] [address] Performed By: #### 5 7021-8 ####[facility] LABCLIA [id number] [place] [address] Hemoglobin (Bld) [Mass/Vol] 13.9 g/dL Normal 13.0-17.0 [facility] Comment on above: Order Comment: Speci men Type: BLOOD SPECIMENOrdering Facility: [facility] Address: [address] [place] [address] Performed By: #### 5 7021-8 ####[facility] LABCLIA [id number] [place] [address] Immature granulocytes (Bld) [#/Vol] 10*3/uL Normal <0.10 [facility] Comment on above: Order Comment: Speci men Type: BLOOD SPECIMENOrdering Facility: [facility] Address: [address] [place] [address] Performed By: #### 5 7021-8 ####[facility] LABCLIA [id number] [place] [address] Immature granulocytes/100 WBC (Bld) 0.3 % Normal [facility] Comment on above: Order Comment: Speci men Type: BLOOD SPECIMENOrdering Facility: [facility] Address: [address] [place] [address] Performed By: #### 5 7021-8 ####[facility] LABCLIA [id number] [place] [address] Lymphocytes (Bld) [#/Vol] 1.15 10*3/uL Normal 1.00-4.00 [facility] Comment on above: Order Comment: Speci men Type: BLOOD SPECIMENOrdering Facility: [facility] Address: [address] [place] [address] Performed By: #### 5 7021-8 ####[facility] LABCLIA [id number] [place] [address] Lymphocytes/100 WBC (Bld) 17.6 % Normal [facility] Comment on above: Order Comment: Speci men Type: BLOOD SPECIMENOrdering Facility: [facility] Address: [address] [place] [address] Performed By: #### 5 7021-8 ####[facility] LABCLIA [id number] [place] [address] MCH (RBC) [Entitic mass] 33.7 pg Normal 26.0-34.0 [facility] Comment on above: Order Comment: Speci men Type: BLOOD SPECIMENOrdering Facility: [facility] Address: [address] [place] [address] Performed By: #### 5 7021-8 ####[facility] LABCLIA [id number] [place] [address] MCHC (RBC) [Mass/Vol] 33.2 g/dL Normal 30.5-36.0 [facility] Comment on above: Order Comment: Speci men Type: BLOOD SPECIMENOrdering Facility: [facility] Address: [address] [place] [address] Performed By: #### 5 7021-8 ####[facility] LABCLIA [id number] [place] [address] MCV (RBC) [Entitic vol] 101.5 fL High 80.0-100.0 [facility] Comment on above: Order Comment: Speci men Type: BLOOD SPECIMENOrdering Facility: [facility] Address: [address] [place] [address] Performed By: #### 5 7021-8 ####[facility] LABCLIA [id number] [place] [address] Monocytes (Bld) [#/Vol] 0.87 10*3/uL High <0.87 [facility] Comment on above: Order Comment: Speci men Type: BLOOD SPECIMENOrdering Facility: [facility] Address: [address] [place] [address] Performed By: #### 5 7021-8 ####[facility] LABCLIA [id number] [place] [address] Monocytes/100 WBC (Bld) 13.3 % Normal [facility] Comment on above: Order Comment: Speci men Type: BLOOD SPECIMENOrdering Facility: [facility] Address: [address] [place] [address] Performed By: #### 5 7021-8 ####[facility] LABCLIA [id number] [place] [address] Neutrophils (Bld) [#/Vol] 4.45 10*3/uL Normal 1.45-7.50 [facility] Comment on above: Order Comment: Speci men Type: BLOOD SPECIMENOrdering Facility: [facility] Address: [address] [place] [address] Performed By: #### 5 7021-8 ####[facility] LABCLIA [id number] [place] [address] Neutrophils/100 WBC (Bld) 67.9 % Normal [facility] Comment on above: Order Comment: Speci men Type: BLOOD SPECIMENOrdering Facility: [facility] Address: [address] [place] [address] Performed By: #### 5 7021-8 ####[facility] LABCLIA [id number] [place] [address] Nucleated RBC (Bld) [#/Vol] 10*3/uL Normal <0.01 [facility] Comment on above: Order Comment: Speci men Type: BLOOD SPECIMENOrdering Facility: [facility] Address: [address] [place] [address] Performed By: #### 5 7021-8 ####[facility] LABCLIA [id number] [place] [address] Nucleated RBC/100 WBC (Bld) [Ratio] 0.0 /100 WBC Normal [facility] Comment on above: Order Comment: Speci men Type: BLOOD SPECIMENOrdering Facility: [facility] Address: [address] [place] [address] Performed By: #### 5 7021-8 ####[facility] LABCLIA [id number] [place] [address] Platelet mean volume (Bld) [Entitic vol] 9.8 fL Normal 9.0-12.7 [facility] Comment on above: Order Comment: Speci men Type: BLOOD SPECIMENOrdering Facility: [facility] Address: [address] [place] [address] Performed By: #### 5 7021-8 ####[facility] LABCLIA [id number] [place] [address] Platelets (Bld) [#/Vol] 235 10*3/uL Normal 150-400 [facility] Comment on above: Order Comment: Speci men Type: BLOOD SPECIMENOrdering Facility: [facility] Address: [address] [place] [address] Performed By: #### 5 7021-8 ####[facility] LABCLIA [id number] [place] [address] RBC (Bld) [#/Vol] 4.13 10*6/uL Low 4.20-6.00 [facility] Comment on above: Order Comment: Speci men Type: BLOOD SPECIMENOrdering Facility: [facility] Address: [address] [place] [address] Performed By: #### 5 7021-8 ####[facility] LABCLIA [id number] [place] [address] WBC (Bld) [#/Vol] 6.55 10*3/uL Normal 3.70-11.00 [facility] Comment on above: Order Comment: Speci men Type: BLOOD SPECIMENOrdering Facility: [facility] Address: [address] [place] [address] Performed By: #### 5 7021-8 ####[facility] LABCLIA [id number] [place] [address] Comprehensive metabolic 2000 panelOrdered By: Felisha Munoz on 12-15-2023 Albumin [Mass/Vol] 4.7 g/dL 3.9 - 4.9 g/dL [facility] ALP [Catalytic activity/Vol] 62 U/L 38 - 113 U/L [facility] ALT [Catalytic activity/Vol] 7 U/L Low 10 - 54 U/L [facility] Anion gap [Moles/Vol] 9 mmol/L 8 - 15 mmol/L [facility] AST [Catalytic activity/Vol] 19 U/L 14 - 40 U/L [facility] Bilirubin [Mass/Vol] 1.0 mg/dL 0.2 - 1 .3 mg/dL [facility] Calcium [Mass/Vol] 10.3 mg/dL High 8.5 - 10. 2 mg/dL [facility] Chloride [Moles/Vol] 105 mmol/L 98 - 10 7 mmol/L [facility] CO2 [Moles/Vol] 24 mmol/L 22 - 30 mmol/L [facility] Creatinine [Mass/Vol] 0.81 mg/dL 0.73 - 1.22 mg/dL [facility] GFR/1.73 sq M.predicted among non-blacks MDRD (S/P/Bld) [Vol rate/Area] 99 mL/min/{1.73_m2} - PINF [facility] Comment on above: Estimated Glomerular Filtration Rate (eGFR) is calculated using the 2020 CKD-EPI creatinine equation. This equation utilizes serum creatinine, sex, and age as parameters. The creatinine assay has traceable calibration to isotope dilution-mass spectrometry. Refer to KDIGO guidelines for clinical interpretation. In patients with unstable renal function, e.g. those with acute kidney injury, the eGFR may not accurately reflect actual GFR. Glucose [Mass/Vol] 104 mg/dL High 74 - 99 mg/dL [facility] Comment on above: The [place] [employer] Di[employer] s Association (ADA) provides guidance for cutoff values for fasting glucose and random glucose. The ADA defines fasting as no caloric intake for at least 8 hours. Fasting plasma glucose results between 100 to 125 mg/dL indicate increased risk for diabetes (prediabetes). Fasting plasma glucose results greater than or equal to 126 mg/dL meet the criteria for diagnosis of diabetes. In the absence of unequivocal hyperglycemia, results should be confirmed by repeat testing. In a patient with classic symptoms of hyperglycemia or hyperglycemic crisis, random plasma glucose results greater than or equal to 200 mg/dL meet the criteria for diagnosis of diabetes. Reference: Standards of Medical Care in Diabetes 2016, [place] [employer]. Diabetes Care. 2016.39(Suppl 1). Interpretation and review of laboratory results Abnormal [facility] Potassium [Moles/Vol] 4.4 mmol/L 3.7 - 5.1 mmol/L [facility] Protein [Mass/Vol] 7.5 g/dL 6.3 - 8.0 g/dL [facility] Sodium [Moles/Vol] 138 mmol/L 136 - 144 mmol/L [facility] Urea nitrogen [Mass/Vol] 13 mg/dL 9 - 24 mg/dL [facility] Comprehensive metabolic 2000 panelon 12-15-2023 Albumin [Mass/Vol] 4.7 g/dL Normal 3.9-4.9 [facility] Comment on above: Order Comment: Speci men Type: BLOOD SPECIMENOrdering Facility: [facility] Address: [address] [place] [address] Performed By: #### 2 4323-8 ####[facility] LABCLIA [id number] [place] [address] ALP [Catalytic activity/Vol] 62 U/L Normal 38-113 [facility] Comment on above: Order Comment: Speci men Type: BLOOD SPECIMENOrdering Facility: [facility] Address: [address] [place] [address] Performed By: #### 2 4323-8 ####[facility] LABCLIA [id number] [place] [address] ALT [Catalytic activity/Vol] 7 U/L Low 10-54 [facility] Comment on above: Order Comment: Speci men Type: BLOOD SPECIMENOrdering Facility: [facility] Address: [address] [id number] Performed By: #### 2 4323-8 ####[facility] LABCLIA [id number] [place] [address] Anion gap [Moles/Vol] 9 mmol/L Normal 8-15 [facility] Comment on above: Order Comment: Speci men Type: BLOOD SPECIMENOrdering Facility: [facility] Address: [address] [place] [address] Performed By: #### 2 4323-8 ####[facility] LABCLIA [id number] [place] [address] AST [Catalytic activity/Vol] 19 U/L Normal 14-40 [facility] Comment on above: Order Comment: Speci men Type: BLOOD SPECIMENOrdering Facility: [facility] Address: [address] [place] [address] Performed By: #### 2 4323-8 ####[facility] LABCLIA [id number] [place] [address] Bilirubin [Mass/Vol] 1.0 mg/dL Normal 0.2-1.3 [facility] Comment on above: Order Comment: Speci men Type: BLOOD SPECIMENOrdering Facility: [facility] Address: [address] [place] [address] Performed By: #### 2 4323-8 ####[facility] LABCLIA [id number] [place] [address] Calcium [Mass/Vol] 10.3 mg/dL High 8.5-10.2 [facility] Comment on above: Order Comment: Speci men Type: BLOOD SPECIMENOrdering Facility: [facility] Address: [address] [place] [address] Performed By: #### 2 4323-8 ####[facility] LABCLIA [id number] [place] [address] Chloride [Moles/Vol] 105 mmol/L Normal 98-107 [facility] Comment on above: Order Comment: Speci men Type: BLOOD SPECIMENOrdering Facility: [facility] Address: [address] [place] [address] Performed By: #### 2 4323-8 ####[facility] LABCLIA [id number] [place] [address] CO2 [Moles/Vol] 24 mmol/L Normal 22-30 [facility] Comment on above: Order Comment: Speci men Type: BLOOD SPECIMENOrdering Facility: [facility] Address: [address] [place] [address] Performed By: #### 2 4323-8 ####[facility] LABCLIA [id number] [place] [address] Creatinine [Mass/Vol] 0.81 mg/dL Normal 0.73-1.22 [facility] Comment on above: Order Comment: Speci men Type: BLOOD SPECIMENOrdering Facility: [facility] Address: [address] [place] [address] Performed By: #### 2 4323-8 ####[facility] LABCLIA [id number] [place] [address] Creatinine and Glomerular filtration rate.predicted panel (S/P/Bld) 99 mL/min/1.73m??? Normal >=60 [facility] Comment on above: Order Comment: Speci men Type: BLOOD SPECIMENOrdering Facility: [facility] Address: [address] [place] [address] Result Comment: Trinity mated Glomerular Filtration Rate (eGFR) is calculated using the 2020 CKD-EPI creatinine equation. This equation utilizes serum creatinine, sex, and age as parameters. The creatinine assay has traceable calibration to isotope dilution-mass spectrometry. Refer to KDIGO guidelines for clinical interpretation. In patients with unstable renal function, e.g. those with acute kidney injury, the eGFR may not accurately reflect actual GFR. Performed By: #### 2 4323-8 ####[facility] LABCLIA [id number] [place] [address] Glucose [Mass/Vol] 104 mg/dL High 74-99 [facility] Comment on above: Order Comment: Speci men Type: BLOOD SPECIMENOrdering Facility: [facility] Address: [address] [place], [place] [address] Result Comment: The [place] Diabetes Association (ADA) provides guidance for cutoff values for fasting glucose and random glucose. The ADA defines fasting as no caloric intake for at least 8 hours. Fasting plasma glucose results between 100 to 125 mg/dL indicate increased risk for diabetes (prediabetes). Fasting plasma glucose results greater than or equal to 126 mg/dL meet the criteria for diagnosis of diabetes. In the absence of unequivocal hyperglycemia, results should be confirmed by repeat testing. In a patient with classic symptoms of hyperglycemia or hyperglycemic crisis, random plasma glucose results greater than or equal to 200 mg/dL meet the criteria for diagnosis of diabetes. Reference: Standards of Medical Care in Diabetes 2016, [place] [employer]. Diabetes Care. 2016.39(Suppl 1). Performed By: #### 2 4323-8 ####[facility] LABCLIA [id number] [place] [address] Potassium [Moles/Vol] 4.4 mmol/L Normal 3.7-5.1 [facility] Comment on above: Order Comment: Speci men Type: BLOOD SPECIMENOrdering Facility: [facility] Address: [address] [place], [place] [address] Performed By: #### 2 4323-8 ####[facility] LABCLIA [id number] [place] [address] Protein [Mass/Vol] 7.5 g/dL Normal 6.3-8.0 [facility] Comment on above: Order Comment: Speci men Type: BLOOD SPECIMENOrdering Facility: [facility] Address: [address] [place] [address] Performed By: #### 2 4323-8 ####[facility] LABCLIA [id number] [place] [address] Sodium [Moles/Vol] 138 mmol/L Normal 136-144 [facility] Comment on above: Order Comment: Speci men Type: BLOOD SPECIMENOrdering Facility: [facility] Address: [address] [place] [address] Performed By: #### 2 4323-8 ####[facility] LABCLIA [id number] [place] [address] Urea nitrogen [Mass/Vol] 13 mg/dL Normal 9-24 [facility] Comment on above: Order Comment: Speci men Type: BLOOD SPECIMENOrdering Facility: [facility] Address: [address] [place] [address] Performed By: #### 2 4323-8 ####[facility] LABCLIA [id number] [place] [address] GLUCOSE, BLOOD (POC)on 12-14 Glucose [Mass/Vol] 111 mg/dL Abnormal 74 - 99 mg/dL [facility] Comment on above: Location:[facility], [address] [place] [address] [address], [place], [address] The Accu-Chek Inform II glucose meter has not been approved for testing on patients receiving intensive medical intervention or therapy and results from this point of care glucose test should not be used for patient management decisions in these cases. Inaccurate results may also occur from other interfering factors, such as N-acetylcysteine (blood concentrations of greater than 5mg/dL), galactose, extremes of hematocrit (<10 or >65), or high doses of ascorbic acid (vitamin C) greater than 3mg/dL. Consider alternate testing mechanisms (e.g. core lab, blood gas instrument) in the above situations. Interpretation and review of laboratory results Abnormal [facility] NM PET/CT SKULL-THIGH SUBQon 12-15-2023 NM PET/CT SKULL-THIGH SUBQ * * *Final Report* * * DATE OF EXAM: Dec 15 2023 10:49AM NRN [id number] - NM PET/CT SKULL-THIGH SUBQ / PROCEDURE REASON: multiple diagnoses * * * * Physician Interpretation * * * * RESULT: EXAMINATION: BODY FDG PET-CT CLINICAL HISTORY: 63 years old Male with Cancer of base of tongue (HCC) Malaise and fatigue Malaise and fatigue . INDICATION: Subsequent treatment strategy. TECHNIQUE: Radiopharmaceutical was administered IV followed about 60 minutes later by PET imaging from vertex to proximal thighs. Free breathing, low dose CT of the same body region was acquired without IV contrast for attenuation correction and anatomic localization. * CT Dose-Length Product (DLP): 219 mGy*cm * CT Dose Reduction Employed: Yes * Blood glucose (mg/dL): 111 * Radiopharmaceutical Activity: 6.8 mCi * Radiopharmaceutical: Y38-Jutijnzaszfuozrkac (FDG) * All reported standardized uptake values represent maximum SUV (SUVmax) per body weight, unless otherwise specified. COMPARISON: 02/11/2023 CORRELATION: CT neck and chest 09/10/2022 RESULT: REFERENCES: SUV reference values: * Blood pool (descending aorta) activity: SUVmax 2.1 * Background liver activity: SUVmax 2.7 Greeter (topogram) images: No additional findings. Notes and limitations: * Standardized uptake values indicate the highest activity concentration (SUVmax) at a given location but can be variable and are not absolute. * Physiologic/non-neoplastic uptake is common in the brain, extraocular muscles, oral cavity, tonsils, salivary glands, vocal cords, myocardium, liver, GI tract, urinary tract, and bone marrow among others. Certain regions and organ systems can have more intense uptake, which could confound or obscure some pathology. * Unenhanced imaging is limited for the evaluation of some pathology and the acquired CT was not designed to produce or replace diagnostic CT scan quality. * PET-CT is often not sensitive for pulmonary nodules less than 8 mm. HEAD AND NECK: Imaged Head: No abnormal uptake. Physiologic uptake in the brain with no definite evidence of focal abnormalities. Postsurgical changes in the right neck with no abnormal focal uptake to suggest local recurrence. Neck and Lymph Nodes: No abnormal uptake. Thyroid: No abnormal uptake. CHEST: Lungs and Airways: No abnormal uptake. Emphysematous changes. Pleura and Pericardium: No abnormal uptake. Cardiovascular: No abnormal uptake. Coronary artery calcifications. Mediastinum and Lymph Nodes: No abnormal uptake. ABDOMEN AND PELVIS: Hepatobiliary: No abnormal uptake. Cholecystectomy. Spleen: No abnormal uptake. Pancreas: No abnormal uptake. Adrenals: No abnormal uptake. Urinary Tract: No abnormal uptake. Nonobstructing renal calculi GI Tract: No abnormal uptake. Peritoneum: No abnormal uptake. Vasculature: No abnormal uptake. Aortic atherosclerotic calcifications without aneurysm Retroperitoneum and Lymph Nodes: No abnormal uptake. Pelvis: No abnormal uptake. MUSCULOSKELETAL: Osseous: No abnormal uptake. Degenerative changes. Soft Tissues: No abnormal uptake. IMPRESSION: HEAD/NECK: * No FDG avid neoplastic process. CHEST: * No FDG avid neoplastic process. ABDOMEN/PELVIS: * No FDG avid neoplastic process. MUSCULOSKELETAL: * No FDG avid neoplastic process. Transcribe Date/Time: Dec 17 2023 10:16A Dictated by: JANETH EVANS MD This examination was interpreted and the report reviewed and electronically signed by: JANETH EVANS MD on Dec 17 2023 10:28AM EST Thank you for allowing us to participate in the care of your patient. Should there be any questions regarding this interpretation, please call [phone]. If you are unable to reach us at the number above, please feel free to contact [facility] eRadiology at [phone]. [id number] Normal [facility] PET+CT Guidance for localiza tion of tumor of Skull base to mid-thigh-- W [id number] Joanna 12-15-2023 Radiology Study observation (narrative) [facility] THYROID STIMULATING HORMONEo n 12-15-2023 TSH Qn 4.700 m[IU]/L High [facility] TSH Qnon 12-15-2023 Interpretation and review of laboratory results Abnormal [facility] TSH SerPl-aCncon 12-15-2023 TSH Qn 4.700 m[IU]/L High 0.270-4.20 0 [facility] Comment on above: Order Comment: Speci men Type: BLOOD SPECIMENOrdering Facility: [facility] Address: [address] [place] [address] Performed By: #### 3 016-3 ####[facility] LABCLIA [id number] [place] [address] [place] ECG 12 Leadon 11-17-2023 ECG revealed normal sinus rhythm with PACs [facility] Work Phone: Office Visiton 10-14-2023 Follow-up visit [id number] Kyle Floyd 1960 M Date Provider Department Center 10/14/2023 VALE MIGUEL [facility] No family history on file Level of Service:83405 DC OFFICE/OUTPATIENT NEW MODERATE MDM 45 MINUTES Reason for Visit and Comments: New Patient [632] - Carotid stenosis, Ref Gildardo Lacy, U/S available done in [place] 07/01, brittany Normal [facility] Cholesterol [Mass/volume] in Serum or PlasmaOrdered By: Carmen Neely on 09-08-2023 Cholesterol [Mass/Vol] 116 mg/dL Low 140-200 [place] [facility] Comment on above: Chol less than 200 m g/dl low riskChol 201-239 mg/dl borderline riskChol 240 mg/dl and greater high risk Result Comment: Chol less than 200 mg/dl low risk Chol 201-239 mg/dl borderline risk Chol 240 mg/dl and greater high risk Performed By: #### L IPID #### [facility] [address] Cholesterol in LDL Calc [Mas s/Vol]Ordered By: Carmen Neely on 09-08-2023 Cholesterol in LDL [Mass/Vol] 48 mg/dL 0-100 [facility] Comment on above: LDL ATP III CLASSIFI CATIONLDL less than 100 mg/dL OptimalLDL 100-129 mg/dL Near or above optimalLDL 130-159 mg/dL Borderline highLDL 160-189 mg/dL HighLDL greater than 189 mg/dL Very high Cholesterol in VLDL Calc [Ma ss/Vol]Ordered By: Carmen Neely on 09-08-2023 Cholesterol in VLDL [Mass/Vol] 16 mg/dL [facility] Lipid Panelon 09-08-2023 LDL Cholesterol,Calculat ed 48 mg/dL Normal 0-100 [facility] Comment on above: Result Comment: LDL ATP III CLASSIFICATION LDL less than 100 mg/dL Optimal LDL 100-129 mg/dL Near or above optimal LDL 130-159 mg/dL Borderline high LDL 160-189 mg/dL High LDL greater than 189 mg/dL Very high Performed By: #### L IPID #### [facility] [address] Triglyceride w/Reflex 84 mg/dL Normal 0-149 [facility] Comment on above: Result Comment: TRIG ATP III CLASSIFICATION TRIG less than 150 mg/dL Normal TRIG 150-199 mg/dL Borderline high TRIG 200-500 mg/dL High TRIG greater than 500 mg/dL Very high Standard traceable to the Center for Disease Conrtrol and Prevention (CDC) test method. Performed By: #### L IPID #### [facility] [address] VLDL CHOLESTEROL 16 mg/dL Normal [facility] Comment on above: Performed By: #### L IPID #### [facility] [address] Serum or plasma high density lipoprotein (HDL) cholesterol measurementOrdered By: Carmen Neely on 09-08-2023 Cholesterol in HDL [Mass/Vol] 51 mg/dL Normal 23-92 [facility] Comment on above: HDL CHOL ATP-III CLA SSIFICATION Cardiovascular RiskHDL > or equal to 60 mg/dL LOWHDL < 40 mg/dL HIGH Result Comment: HDL CHOL ATP-III CLASSIFICATION Cardiovascular Risk HDL > or equal to 60 mg/dL LOW HDL < 40 mg/dL HIGH Performed By: #### L IPID #### [facility] [address] [place] [address] Serum or plasma total choles terol/high density lipoprotein (HDL) cholesterol mass ratOrdered By: Carmen Neely on 09-08-2023 Cholesterol.total/Ch olesterol in HDL [Mass ratio] 2.3 {ratio} Normal <5.0 [facility] Comment on above: Result Comment: PERF ORMED BY: [place] [address] PATHOLOGIST [employer]ARN[employer] WORK[employer] HECTOR MARTIN M.D. Performed By: #### L IPID #### [facility] [address] [place] [address] Triglyceride [Mass/volume] i n Serum or PlasmaOrdered By: Carmen Neely on 09-08-2023 Triglyceride [Mass/Vol] 84 mg/dL 0-149 [facility] Comment on above: TRIG ATP III CLASSIF ICATIONTRIG less than 150 mg/dL NormalTRIG 150-199 mg/dL Borderline highTRIG 200-500 mg/dL High TRIG greater than 500 mg/dL Very highStandard traceable to the Center for Disease Conrtrol and Prevention (CDC) test method. THYROID STIMULATING HORMONEo n 08-19-2023 TSH Qn 1.730 m[IU]/L 0.270 - 4.200 mIU/L [facility] Basic metabolic 2000 panelon 08-18-2023 Anion gap [Moles/Vol] 10 mmol/L 9 - 18 mmol/L [facility] Calcium [Mass/Vol] 10.2 mg/dL 8.5 - 10. 2 mg/dL [facility] Chloride [Moles/Vol] 102 mmol/L 97 - 10 5 mmol/L [facility] CO2 [Moles/Vol] 25 mmol/L 22 - 30 mmol/L [facility] Creatinine [Mass/Vol] 1.20 mg/dL 0.73 - 1.22 mg/dL [facility] Estimated Glomerular Filtration Rate 68 mL/min/1.73m >=60 mL/min/1.[address] [facility] Glucose [Mass/Vol] 101 mg/dL High 74 - 99 mg/dL [facility] Potassium [Moles/Vol] 3.7 mmol/L 3.7 - 5.1 mmol/L [facility] Sodium [Moles/Vol] 137 mmol/L 136 - 144 mmol/L [facility] Urea nitrogen [Mass/Vol] 16 mg/dL 9 - 24 mg/dL [facility] Anion gap [Moles/Vol] 10 mmol/L Normal 9-18 [facility] Comment on above: Order Comment: Speci men Type: BLOOD SPECIMENOrdering Facility: [facility] Address: [address] [place] [address] Performed By: #### 2 4321-2 ####[facility] LABCLIA [id number] [place] [address] Calcium [Mass/Vol] 10.2 mg/dL Normal 8.5-10.2 [facility] Comment on above: Order Comment: Speci men Type: BLOOD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 Emphysematous changes in the lungs. Few scattered subcentimeter opacities without significant FDG activity. There are no hypermetabolic foci in the lungs. ABDOMEN AND PELVIS: The liver is slightly heterogeneous activity but no focal lesions are identified. There are no hypermetabolic foci in the liver, spleen, adrenals. Scattered foci of colonic and bowel uptake possibly physiologic or inflammatory. There is no hypermetabolic abdominal or pelvic lymphadenopathy. Physiologic activity is noted in the liver, renal collecting system, bladder and bowel. SKELETON: There are no hypermetabolic osseous lesions. Greeter (topogram) images:No additional findings. 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 INDICATION: Subsequent treatment strategy. TECHNIQUE: 6.8 mCi 18-FDG IV, followed about 1 hour later by PET imaging from base of the skull to proximal femur with head and neck imaging. Non contrast CT was performed for attenuation correction and anatomic localization purposes. CT Dose-Length Product (DLP): 191 mGy*cm. CT Dose Reduction Employed: Yes BLOOD GLUCOSE: 108 mg/dL Comparison: Prior PET CT dated 12/23/2021. Correlation: CT neck chest 09/10/2022 RESULT: HEAD AND NECK: Likely physiological activity in the oral cavity, tonsillar regions, salivary glands, visualized brain. Mild soft tissue prominence/ asymmetry in the right neck with low-level activity (Max SUV 2.8 decreased from prior max SUV 3.9), likely posttreatment changes No suspicious hypermetabolic foci. There is no hypermetabolic cervical lymphadenopathy. CHEST: There are aortic and coronary calcifications. Mildly hypermetabolic mediastinal lymph node measuring about 1 cm in the subcarinal region (Max SUV 3.4) likely inflammatory. There is no hypermetabolic axillary lymphadenopathy. Emphysematous changes in the lungs. Few scattered subcentimeter opacities without significant FDG activity. There are no hypermetabolic foci in the lungs. ABDOMEN AND PELVIS: The liver is slightly heterogeneous activity but no focal lesions are identified. There are no hypermetabolic foci in the liver, spleen, adrenals. Scattered foci of colonic and bowel uptake possibly physiologic or inflammatory. There is no hypermetabolic abdominal or pelvic lymphadenopathy. Physiologic activity is noted in the liver, renal collecting system, bladder and bowel. SKELETON: There are no hypermetabolic osseous lesions. Greeter (topogram) images:No additional findings. IMPRESSION IMPRESSION: 1. Neck: No new suspicious hypermetabolic foci Likely posttreatment changes. 2. Chest: No evidence of FDG avid neoplastic process 3. Abdomen and pelvis: No evidence of FDG avid neoplastic process 4. Skeleton: No hypermetabolic osseous lesions Transcribe Date/Time: Feb 12 2023 11:32A Dictated by: JET ORTIZ MD This examination was interpreted and the report reviewed and electronically signed by: JET ORTIZ MD on Feb 12 2023 9:00PM EST Thank you for allowing us to participate in the care of your patient. Should there be any questions regarding this interpretation, please call [phone]. If you are unable to reach us at the number above, please feel free to contact [facility] eRadiology at [phone]. [facility] PET+CT Guidance for localiza tion of tumor of Skull base to mid-thigh-- W 18F-FDG IVOrdered By: [facility] Provider on 02-12-2023 [facility] GLUCOSE, BLOOD (POC)on 02-11 Glucose [Mass/Vol] 108 mg/dL Abnormal 74 - 99 mg/dL [facility] Comment on above: Location:[facility], [address] [place] [address] , [place], [place], [address] The Accu-Chek Inform II glucose meter has not been approved for testing on patients receiving intensive medical intervention or therapy and results from this point of care glucose test should not be used for patient management decisions in these cases. Inaccurate results may also occur from other interfering factors, such as N-acetylcysteine (blood concentrations of greater than 5mg/dL), galactose, extremes of hematocrit (<10 or >65), or high doses of ascorbic acid (vitamin C) greater than 3mg/dL. Consider alternate testing mechanisms (e.g. core lab, blood gas instrument) in the above situations. Interpretation and review of laboratory results Abnormal [facility] PET+CT Guidance for localiza tion of tumor of Skull base to mid-thigh-- W 18F-FDG Joanna 02-11-2023 Radiology Study observation (narrative) [facility] CT Chest W contrast Joanna IMPRESSION: 1. Subcentimeter bilateral pulmonary nodules, stable from prior study of 04/14/2022. 2. Several mildly prominent mediastinal lymph nodes are again identified, unchanged. Transcribe Date/Time: Sep 10 2022 2:04P Dictated by: DARRYN BERNARD MD This examination was interpreted and the report reviewed and electronically signed by: DARRYN BERNARD MD on Sep 11 2022 8:40AM EST Thank you for allowing us to participate in the care of your patient. Should there be any questions regarding this interpretation, please call [phone]. If you are unable to reach us at the number above, please feel free to contact [facility]Radiology at [phone]. DIVISION OF RADIOLOGY * * *Final Report* * * DATE OF EXAM: Sep 10 2022 8:42AM [facility] 0539 - CT CHEST W IVCON / PROCEDURE REASON: Oropharnyx cancer (HCC) * * * * Physician Interpretation * * * * RESULT: EXAMINATION: CHEST CT WITH CONTRAST CLINICAL HISTORY: Head and neck carcinoma Technique: Spiral CT acquisition of the chest from the thoracic inlet to the upper abdomen following IV contrast. MQ: CTCW_6 Contrast: 50 mL Omnipaque [address] Radiation dose: Integrated Dose-length product (DLP) for this visit = 796 mGy*cm CT Dose Reduction Employed: Automated exposure control (AEC) Comparison: CT chest 04/14/2022 RESULT: Limitations: None. Lines, tubes, and devices: None. Lung parenchyma , airways, and pleural space: No consolidative process or pleural effusion. Extensive centrilobular emphysematous changes are again appreciated. Mild biapical pleural scarring, stable. The trachea and major airways appear patent. Mild, diffuse bronchial wall thickening is noted. Subpleural right upper lobe bulla formation is noted. 3 mm right upper lobe nodule, image 67, series 5, stable. 4 mm nodule lateral aspect left lower lobe, image 189, series 5, stable. No suspicious enlarging nodule is appreciated. Lower neck, lymph nodes, and mediastinum: A CT examination of the neck has been performed concurrently and will be dictated separately. No substantial axillary adenopathy is identified. AP window lymphadenopathy measuring approximately 1.5 x 0.9 cm is stable. Minimally prominent subcarinal lymph node measuring 1.6 x 0.8 cm, stable. No substantial hilar adenopathy is appreciated. Heart, pericardium, and thoracic vessels: The thoracic aorta is normal in caliber. No substantial pericardial effusion is identified. Coronary artery calcification is noted. Bones/Soft Tissues: Degenerative change involving the thoracic spine. No osseous destructive process. Moderate compression deformity of the L1 vertebral body, stable. Upper Abdomen: Limited images through the upper abdomen are stable. Postoperative changes within the gallbladder fossa. Epigastric ventral abdominal wall hernia, stable. Greeter (topogram) images: No additional findings. DIVISION OF RADIOLOGY Provider, [facility] - 09/11/2022 * * *Final Report* * * DATE OF EXAM: Sep 10 2022 8:42AM [facility] 0539 - CT CHEST W IVCON / PROCEDURE REASON: Oropharnyx cancer (HCC) * * * * Physician Interpretation * * * * RESULT: EXAMINATION: CHEST CT WITH CONTRAST CLINICAL HISTORY: Head and neck carcinoma Technique: Spiral CT acquisition of the chest from the thoracic inlet to the upper abdomen following IV contrast. MQ: CTCW_6 Contrast: 50 mL Omnipaque [address] Radiation dose: Integrated Dose-length product (DLP) for this visit = 796 mGy*cm CT Dose Reduction Employed: Automated exposure control (AEC) Comparison: CT chest 04/14/2022 RESULT: Limitations: None. Lines, tubes, and devices: None. Lung parenchyma , airways, and pleural space: No consolidative process or pleural effusion. Extensive centrilobular emphysematous changes are again appreciated. Mild biapical pleural scarring, stable. The trachea and major airways appear patent. Mild, diffuse bronchial wall thickening is noted. Subpleural right upper lobe bulla formation is noted. 3 mm right upper lobe nodule, image 67, series 5, stable. 4 mm nodule lateral aspect left lower lobe, image 189, series 5, stable. No suspicious enlarging nodule is appreciated. Lower neck, lymph nodes, and mediastinum: A CT examination of the neck has been performed concurrently and will be dictated separately. No substantial axillary adenopathy is identified. AP window lymphadenopathy measuring approximately 1.5 x 0.9 cm is stable. Minimally prominent subcarinal lymph node measuring 1.6 x 0.8 cm, stable. No substantial hilar adenopathy is appreciated. Heart, pericardium, and thoracic vessels: The thoracic aorta is normal in caliber. No substantial pericardial effusion is identified. Coronary artery calcification is noted. Bones/Soft Tissues: Degenerative change involving the thoracic spine. No osseous destructive process. Moderate compression deformity of the L1 vertebral body, stable. Upper Abdomen: Limited images through the upper abdomen are stable. Postoperative changes within the gallbladder fossa. Epigastric ventral abdominal wall hernia, stable. Greeter (topogram) images: No additional findings. IMPRESSION IMPRESSION: 1. Subcentimeter bilateral pulmonary nodules, stable from prior study of 04/14/2022. 2. Several mildly prominent mediastinal lymph nodes are again identified, unchanged. Transcribe Date/Time: Sep 10 2022 2:04P Dictated by: DARRYN BERNARD MD This examination was interpreted and the report reviewed and electronically signed by: DARRYN BERNARD MD on Sep 11 2022 8:40AM EST Thank you for allowing us to participate in the care of your patient. Should there be any questions regarding this interpretation, please call [phone]. If you are unable to reach us at the number above, please feel free to contact [facility]Radiology at [phone]. [facility] CT Neck WO contraston 2022 * * *Final Report* * * DATE OF EXAM: Sep 10 2022 8:36AM [facility] 0509 - CT NECK SOFT TISSUE WO IVCON / PROCEDURE REASON: Oropharnyx cancer (HCC) * * * * Physician Interpretation * * * * RESULT: Clinical history:Given reason for examination: Oropharyngeal cancer. Thorough history included with enhanced CT neck comparison. Technique: Unenhanced neck CT with reconstructions. CT Dose-Length Product (DLP): 796 mGy*cm. CT Dose Reduction Employed: Automated exposure control (AEC) Comparison:Concurrently performed chest CT with contrast Result: Uncertain why neck CT ordered without contrast when concurrently performed chest CT performed with contrast. For assessment of the lungs and mediastinum, please see dedicated CT chest report. Coregistration software utilized for slice by slice comparison in the identical plane. Extensive right neck postoperative changes with clips throughout the operative bed with right-sided neck concavity. No change in the degree of architectural contextual distortion with no appreciable mass or collection. No lymphadenopathy by size criteria, morphology, or number. Unremarkable intracranial contents, orbits, mastoids, oral cavity, pharynx, larynx, trachea, and glandular structures except for posttreatment related mild submandibular gland atrophy. Straightening of the cervical lordosis with scattered degenerative disease without significant canal or neural foraminal narrowing. No superimposed lytic or blastic process. Impression: Unenhanced neck CT with stable posttreatment changes with no appreciable mass or lymphadenopathy. Transcribe Date/Time: Sep 10 2022 9:06A Dictated by: SHAJI DEVINE MD This examination was interpreted and the report reviewed and electronically signed by: SHAJI DEVINE MD on Sep 10 2022 9:12AM EST Thank you for allowing us to participate in the care of your patient. Should there be any questions regarding this interpretation, please call [phone]. If you are unable to reach us at the number above, please feel free to contact [facility]Radiology at [phone]. DIVISION OF RADIOLOGY Provider, [facility] - 09/10/2022 * * *Final Report* * * DATE OF EXAM: Sep 10 2022 8:36AM [facility] 0509 - CT NECK SOFT TISSUE WO IVCON / PROCEDURE REASON: Oropharnyx cancer (HCC) * * * * Physician Interpretation * * * * RESULT: Clinical history:Given reason for examination: Oropharyngeal cancer. Thorough history included with enhanced CT neck comparison. Technique: Unenhanced neck CT with reconstructions. CT Dose-Length Product (DLP): 796 mGy*cm. CT Dose Reduction Employed: Automated exposure control (AEC) Comparison:Concurrently performed chest CT with contrast Result: Uncertain why neck CT ordered without contrast when concurrently performed chest CT performed with contrast. For assessment of the lungs and mediastinum, please see dedicated CT chest report. Coregistration software utilized for slice by slice comparison in the identical plane. Extensive right neck postoperative changes with clips throughout the operative bed with right-sided neck concavity. No change in the degree of architectural contextual distortion with no appreciable mass or collection. No lymphadenopathy by size criteria, morphology, or number. Unremarkable intracranial contents, orbits, mastoids, oral cavity, pharynx, larynx, trachea, and glandular structures except for posttreatment related mild submandibular gland atrophy. Straightening of the cervical lordosis with scattered degenerative disease without significant canal or neural foraminal narrowing. No superimposed lytic or blastic process. Impression: Unenhanced neck CT with stable posttreatment changes with no appreciable mass or lymphadenopathy. Transcribe Date/Time: Sep 10 2022 9:06A Dictated by: SHAJI DEVINE MD This examination was interpreted and the report reviewed and electronically signed by: SHAJI DEVINE MD on Sep 10 2022 9:12AM EST Thank you for allowing us to participate in the care of your patient. Should there be any questions regarding this interpretation, please call [phone]. If you are unable to reach us at the number above, please feel free to contact [facility]Radiology at [phone]. [facility] CT Neck WO contrastOrdered B y: [facility] Provider on 09-10-2022 [facility] No Panel Informationon 09-10 Radiology Study observation (narrative) [facility] CBC AUTO DIFFon 08-30-2022 BASO # 0.0 103/ul Normal 0.0-0.1 [facility] Comment on above: Performed By: #### C BC #### [facility] [address] [place] [address] Dr. Herb Jones Basophils/100 WBC (Bld) 0.4 % Normal 0.2-2.0 [facility] Comment on above: Performed By: #### C BC #### [facility] [address] [place] [address] Dr. Herb Jones EO # 0.2 103/ul Normal 0.0-0.7 [facility] Comment on above: Performed By: #### C BC #### [facility] [address] [place] [address] Dr. Herb Jones Eosinophils/100 WBC (Bld) 1.6 % Normal 0.9-7.0 [facility] Comment on above: Performed By: #### C BC #### [facility] [address] [place] [address] Dr. Herb Jones Erythrocyte distribution width (RBC) [Ratio] 16.3 % Critically high 11.0-15.0 [facility] Comment on above: Performed By: #### C BC #### [facility] [address] [place] [address] Dr. Herb Jones Hematocrit (Bld) [Volume fraction] 37.3 % Critically low 42.0-54.0 [facility] Comment on above: Performed By: #### C BC #### [facility] [address] [place] [address] Dr. Herb Jones Hemoglobin (Bld) [Mass/Vol] 12.5 g/dL Critically low 14.0-18.0 [facility] Comment on above: Performed By: #### C BC #### [facility] [address] [place] [address] Dr. Herb Jones IG # 0.03 10e3/ul Normal 0.00-0.03 [facility] Comment on above: Performed By: #### C BC #### [facility] Laboratory [address] [place] [address] Dr. Herb Jones IG % 0.3 % Normal 0.0-0.5 [facility] Comment on above: Performed By: #### C BC #### [facility] [address] [place] [address] Dr. Herb Jones LYMPH # 1.0 103/ul Critically low 1.2-3.8 [facility] Comment on above: Performed By: #### C BC #### [facility] [address] [place] [address] Dr. Herb Jones Lymphocytes/100 WBC (Bld) 9.6 % Critically low 20.5-60.0 [facility] Comment on above: Performed By: #### C BC #### [facility] [address] [place] [address] Dr. Herb Jones MANUAL DIFF REQ NO Normal [facility] Comment on above: Performed By: #### C BC #### [facility] [address] [place] [address] Dr. Herb Jones MCH (RBC) [Entitic mass] 31.9 pg Normal 25.9-34.0 [facility] Comment on above: Performed By: #### C BC #### [facility] [address] [place] [address] Dr. Herb Jones MCHC (RBC) [Mass/Vol] 33.5 g/dL Normal 29.9-35.2 [facility] Comment on above: Performed By: #### C BC #### [facility] [address] [place] [address] Dr. Herb Jones MCV (RBC) [Entitic vol] 95.2 fL Critically high 80.0-94.0 [facility] Comment on above: Performed By: #### C BC #### [facility] [address] [place] [address] Dr. Herb Jones MONO # 1.1 103/ul Critically high 0.3-0.8 [facility] Comment on above: Performed By: #### C BC #### [facility] [address] [place] [address] Dr. Herb Jones Monocytes/100 WBC (Bld) 10.6 % Normal 1.7-12.0 [facility] Comment on above: Performed By: #### C BC #### [facility] [address] [place] [address] Dr. Herb Jones NEUT # 8.0 103/ul Critically high 1.4-6.5 [facility] Comment on above: Performed By: #### C BC #### [facility] [address] [place] [address] Dr. Herb Jones Neutrophils/100 WBC (Bld) 77.5 % Critically high 43.0-75.0 [facility] Comment on above: Performed By: #### C BC #### [facility] [address] [place] [address] Dr. Herb Jones Platelet mean volume (Bld) [Entitic vol] 8.8 fL Critically low 9.5-13.5 [facility] Comment on above: Performed By: #### C BC #### [facility] [address] [place] [address] Dr. Herb Jones PLT 326 103/ul Normal 150-450 [facility] Comment on above: Performed By: #### C BC #### [facility] [address] [place] [address] Dr. Herb Jones RBC 3.92 106/ul Critically low 4.70-6.10 [facility] Comment on above: Performed By: #### C BC #### [facility] [address] [place] [address] Dr. Herb Jones WBC 10.3 103/ul Normal 4.0-11.0 [facility] Comment on above: Performed By: #### C BC #### [facility] [address] [place] [address] Dr. Herb Jones Cov[facility]19 [facility] 08[facility]03 SARS-CoV-2 (COVID-19) RNA BLANCA+probe Ql (Unsp spec) Not detected Normal NOT DETECTED [facility] Comment on above: Result Comment: This test is not yet approved or cleared by the [place] FDA. When there are no FDA-approved or cleared tests available, and other criteria are met, FDA can make tests available under an emergency access mechanism called an Emergency Use Authorization (EUA). The EUA for this test is supported by the [employer] of Health and Human Service's (HHS's) declaration that circumstances exist to justify the emergency use of in vitro diagnostics for the detection and/or diagnosis of the virus that causes COVID-19. This EUA will remain in effect (meaning this test can be used) for the duration of the COVID-19 declaration justifying emergency of IVDs, unless it is terminated or revoked by FDA (after which the test may no longer be used). When diagnostic testing is negative, the possibility of a false negative should be considered in the context of a patient's recent exposures and the presence of clinical signs and symptoms consistent with SARS-CoV-2. Performed By: #### C VDTBH ####[facility] [address] [place], [place] [address]Dr. [facility] GROUP A STREP CULTUREon 08-03 S. pyogenes Ag Ql (Unsp spec) Culture Observations: NEGATIVE FOR GROUP A STREPTOCOCCUS. Normal [facility] Comment on above: Performed By: #### S SCRN, GRASTCX ####[facility] [address] [place], [place] [address]Dr. [facility] INFLUENZA A AND B AGon 08-30 INFLUANEGH SEE BELOW Normal [facility] Comment on above: Result Comment: Nega tive for Flu A protein angiten. Infection due to Flu A cannot be ruled out. Flu A angiten in the sample may be below the detection limit of the test. Performed By: #### I NFLUAB ####[facility] [address] [place], [place] [address]Dr. [facility] INFLUBNEGH SEE BELOW Normal [facility] Comment on above: Result Comment: Nega tive for Flu B protein antigen. Infection due to Flu B cannot be ruled out. Flu B antigen in the sample may be below the detection limit of the test. Performed By: #### I NFLUAB ####[facility] [address] [place], [place] [address]Dr. [facility] INFLUENZA A AG Negative Normal NEGATIVE SEE COMMENT [facility] Comment on above: Performed By: #### I NFLUAB ####[facility] [address] [place], [place] [address]Dr. [facility] INFLUENZA B AG Negative Normal NEGATIVE SEE COMMENT [facility] Comment on above: Performed By: #### I NFLUAB ####[facility] [address] [place], [place] [address]Dr. Herb Jones PROF 14(COMP METB)on 023 Albumin [Mass/Vol] 3.2 g/dL Critically low 3.4-5.0 Th e [facility] Comment on above: Performed By: #### C MP #### [facility] [address] [address] [address] Herb Jones Albumin/Globulin [Mass ratio] 0.8 {ratio} Normal [facility] Comment on above: Performed By: #### C MP #### [facility] [address] [address] [address] Herb Jones ALP [Catalytic activity/Vol] 148 U/L Critically high 46-116 [facility] Comment on above: Performed By: #### C MP #### [facility] [address] [address] [address] Herb Jones ALT [Catalytic activity/Vol] 23 U/L Normal 16-63 [facility] Comment on above: Performed By: #### C MP #### [facility] [address] [address] [address] Herb Jones Anion gap [Moles/Vol] 13.9 mmol/L Normal [facility] Comment on above: Performed By: #### C MP #### [facility] [address] [address] [address] Herb Jones AST [Catalytic activity/Vol] 22 U/L Normal 15-37 [facility] Comment on above: Performed By: #### C MP #### [facility] [address] [address] [address] Herb Jones Bilirubin [Mass/Vol] 0.6 mg/dL Normal 0.2-1.0 [facility] Comment on above: Performed By: #### C MP #### [facility] [address] [address] [address] Herb Jones Calcium [Mass/Vol] 9.0 mg/dL Normal 8.5-10.1 [facility] Comment on above: Performed By: #### C MP #### [facility] [address] [place] [address] Dr. Herb Jones Chloride [Moles/Vol] 101 mmol/L Normal 98-107 [facility] Comment on above: Performed By: #### C MP #### [facility] [address] [place] [address] Dr. Herb Jones CO2 [Moles/Vol] 21.9 mmol/L Normal 21.0-32.0 [facility] Comment on above: Performed By: #### C MP #### [facility] [address] [place] [address] Dr. Herb Jones Creatinine [Mass/Vol] 0.97 mg/dL Normal 0.70-1.30 [facility] Comment on above: Performed By: #### C MP #### [facility] [address] [place] [address] Dr. Herb Jones EGFR-AF YEMENI >60 Normal >=60 [facility] Comment on above: Performed By: #### C MP #### [facility] [address] [place] [address] Dr. Herb Jones EGFR-NON AF YEMENI >60 Normal >=60 [facility] Comment on above: Performed By: #### C MP #### [facility] [address] [place] [address] Dr. Herb Jones Globulin (S) [Mass/Vol] 4.2 g/dL Normal [facility] Comment on above: Performed By: #### C MP #### [facility] [address] [place] [address] Dr. Herb Jones Glucose [Mass/Vol] 102 mg/dL Normal 74-106 [facility] Comment on above: Performed By: #### C MP #### [facility] [address] [place] [address] Dr. Herb Jones Potassium [Moles/Vol] 3.8 mmol/L Normal 3.5-5.1 [facility] Comment on above: Performed By: #### C MP #### [facility] [address] [place] [address] Dr. Herb Jones Protein [Mass/Vol] 7.4 g/dL Normal 6.4-8.2 [facility] Comment on above: Performed By: #### C MP #### [facility] [address] [address] [address] Herb Jones Sodium [Moles/Vol] 133 mmol/L Critically low 136-145 Th e [facility] Comment on above: Performed By: #### C MP #### [facility] [id number] Herb Jones Urea nitrogen [Mass/Vol] 12.0 mg/dL Normal 7.0-18.0 [facility] Comment on above: Performed By: #### C MP #### [facility] [address] [address] [address] Herb Jones Urea nitrogen/Creatinine [Mass ratio] 12.4 mg/mg Normal [facility] Comment on above: Performed By: #### C MP #### [facility] [id number] Herb Jones STREPT SCREENon 08-30-2022 STREP SCREEN A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 right oropharynx, with mild loss of the right parapharyngeal soft tissue planes. No clear evidence of nodular or masslike enhancement at the right tongue base to suggest locally recurrent neoplasm in this region. Treatment related changes in the bilateral submandibular glands, and likely within the right parotid tail. Otherwise, bilateral parotid glands are unremarkable. [employer] spaces appear normal. Infrahyoid Neck: Mucosal/mucosal edema in the supraglottic larynx and hypopharynx as detailed above. Otherwise, hypopharynx, larynx, and imaged infraglottic trachea appear unremarkable. Imaged upper esophagus is unremarkable. Thyroid gland is homogeneous without evidence of discrete nodule. Lymph Nodes: Interval resection of the previously seen pathologic necrotic right level IIb lymph node, as well as the adjacent partially calcified lymph node. Confluent soft tissue density in the right neck reflecting postoperative changes as above. No pathologic cervical lymph nodes by imaging criteria. Few scattered nonspecific lymph nodes are seen in the neck, which are nonspecific and nonenlarged by size criteria. No increasing cervical lymph nodes. Carotid Space: Postoperative changes adjacent to the right carotid space as detailed above, with sacrifice right IJ, reconstituted in the right lower neck. Moderate narrowing in the left common carotid artery due to eccentric predominantly soft plaque. Occluded left ICA from the origin and to the intracranial segment, with reconstitution in the supraclinoid left ICA, similar to prior. Left internal jugular vein and right cervical carotid system are patent, noting atherosclerotic plaque at the right carotid bulb and proximal right ICA. Orbits, Face and Skull Base: Orbital soft tissue planes are preserved. . Mucoid secretions versus retention cysts in the inferior left maxillary sinus. Paranasal sinuses are otherwise essentially clear.. Mastoid air cells and middle ear cavities are clear. . No evidence of an osteolytic or osteoblastic process in the skull base. . . Imaged intracranial contents: No enhancement, no mass effect, and no hydrocephalus. Cervical spine and remaining osseous structures: A (more content not included)... 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 Definitive chemoradiation completed 09/28/2020. Recurrence at right level 2 lymph node 04/2021. Radical right neck dissection 06/25/2021. Followed by adjuvant chemoradiation, completed 09/26/2021. Pathology 06/25/2021: 1. Distal cranial nerve 11, excision (A): - Nerve, negative for carcinoma. 2. Right proximal cranial nerve 11, excision (B): - Nerve, negative for carcinoma. ?3. Right radical salvage neck (C): - Metastatic squamous cell carcinoma involving soft tissue (greatest dimension 3.5 cm), keratinizing type, moderately to poorly differentiated. - Carcinoma extends to the inked and cauterized anterior tissue edge, comes to within 1 mm of the anteromedial edge Technique: CT of the soft tissues of the neck with IV contrast. A series of contiguous helical scans were performed from the skull base to the aortic arch. M: CTNW_1 Contrast: 150 mL Omnipaque [address] Dose-Length Product (DLP): 770 mGy*cm CT Dose Reduction Employed: Automated exposure control (AEC) COMPARISON: Neck CT 06/20/2021. PET/CT 12/23/2021. Reference made to outside neck CT 07/09/2020. RESULT: Postoperative change: New since neck CT 06/20/2021, and similar to PET/CT 12/21/2021, postoperative changes of radical right neck dissection, with multiple surgical clips in the right neck soft tissues. Confluent edema in the right neck soft tissues, including involving right parapharyngeal space, surrounding right carotid space, as well as reticulation of the anterior neck subcutaneous soft tissues reflecting treatment related changes. Mucosal/mucosal edema involving the epiglottis, subglottic larynx, and hypopharynx, reflecting treatment related changes, mildly asymmetric to the right, with slightly asymmetric edema in the right aryepiglottic fold. Sacrifice of the right IJ, with reconstitution in the inferior neck. Right sternocleidomastoid is likely predominantly surgically absent, with otherwise volume loss and atrophy in the right sternocleidomastoid and atrophy of the right trapezius, compatible with right spinal accessory denervation. Suprahyoid Neck: Postoperative changes in the right oropharynx, with mild loss of the right parapharyngeal soft tissue planes. No clear evidence of nodular or masslike enhancement at the right tongue base to suggest locally recurrent neoplasm in this region. Treatment related changes in the bilateral submandibular glands, and likely within the right parotid tail. Otherwise, bilateral parotid glands are unremarkable. [employer] spaces appear normal. Infrahyoid Neck: Mucosal/mucosal edema in the supraglottic larynx and hypopharynx as detailed above. Otherwise, hypopharynx, larynx, and imaged infraglottic trachea appear unremarkable. Imaged upper esophagus is unremarkable. Thyroid gland is homogeneous without evidence of discrete nodule. Lymph Nodes: Interval resection of the previously seen pathologic necrotic right level IIb lymph node, as well as the adjacent partially calcified lymph node. Confluent soft tissue density in the right neck reflecting postoperative changes as above. No pathologic cervical lymph nodes by imaging criteria. Few scattered nonspecific lymph nodes are seen in the neck, which are nonspecific and nonenlarged by size criteria. No increasing cervical lymph nodes. Carotid Space: Postoperative changes adjacent to the right carotid space as detailed above, with sacrifice right IJ, reconstituted in the right lower neck. Moderate narrowing in the left common carotid artery due to eccentric predominantly soft plaque. Occluded left ICA from the origin and to the intracranial segment, with reconstitution in the supraclinoid left ICA, similar to prior. Left internal jugular vein and right cervical carotid system are patent, noting atherosclerotic plaque at the right carotid bulb and proximal right ICA. Orbits, Face and Skull Base: Orbital soft tissue planes are preserved. . Mucoid secretions versus retention cysts in the inferior left maxillary sinus. Paranasal sinuses are otherwise essentially clear.. Mastoid air cells and middle ear cavities are clear. . No evidence of an osteolytic or osteoblastic process in the skull base. . . Imaged intracranial contents: No enhancement, no mass effect, and no hydrocephalus. Cervical spine (more content not included)... [facility] CT Neck W contrast IVOrdered By: [facility] Provider on 04-14-2022 [facility] No Panel Informationon 04-14 Radiology Study observation (narrative) [facility] Echocardiogramon 01-13-[address], [address], [place] [address] TRANSTHORACIC ECHOCARDIOGRAM REPORT Patient Name: ALEJO FLOYD Reading Physician: [id number] Carmen Neely MD, [facility] Study Date: 01/13/2022 Referring [id number] CARMEN NEELY Physician: MRN/PID: [id number] PCP: Gildardo Lacy Accession/Order#: [id number] [facility] Location: Date of : 1960 Fellow: Gender: M Nurse: Admit Date: Tenterer: Tamika Howard RDCS, RVT Height: 177.80 cm CC Report to: Weight: 74.39 kg Study Type: Echocardiogram BSA: 1.92 m2 Blood Pressure: 152 /80 mmHg Diagnosis/ICD: R94.31-Abnormal electrocardiogram [ECG] [EKG]; R06.00-Dyspnea, unspecified Indication: COPD, Tobacco Abuse, Peripheral Vascular Disease, Left Femoral Artery Stent, TIA, Depression Procedure/CPT: Echo Complete w Full [id number] Study Detail: The following Echo studies were performed: 2D, M-Mode, Doppler and color flow. PHYSICIAN INTERPRETATION: Left Ventricle: Left ventricular systolic function is normal, with an estimated ejection fraction of 65-70%. There are no regional wall motion abnormalities. The left ventricular cavity size is normal. There is left ventricular hypertrophy involving the septal wall. Spectral Doppler shows an impaired relaxation pattern of left ventricular diastolic filling. Mild septal left ventricular hypertrophy. Left Atrium: The left atrium is normal in size. Right Ventricle: The right ventricle is normal in size. There is normal right ventricular global systolic function. Right Atrium: The right atrium is normal in size. Aortic Valve: The aortic valve appears structurally normal. There is no evidence of aortic valve regurgitation. The peak instantaneous gradient of the aortic valve is 5.6 mmHg. The mean gradient of the aortic valve is 3.0 mmHg. Mitral Valve: The mitral valve is normal in structure. There is trace mitral valve regurgitation. Tricuspid Valve: The tricuspid valve is structurally normal. No evidence of tricuspid regurgitation. Pulmonic Valve: The pulmonic valve is not well visualized. There is no indication of pulmonic valve regurgitation. Pericardium: There is no pericardial effusion noted. Aorta: The aortic root is normal. Systemic Veins: The inferior vena cava appears to be of normal size. In comparison to the previous echocardiogram(s): No previous studies are available for comparison. CONCLUSIONS: 1. Left ventricular systolic function is normal with a 65-70% estimated ejection fraction. 2. Mild septal left ventricular hypertrophy. 3. Spectral Doppler shows an impaired relaxation pattern of left ventricular diastolic filling. 4. No previous studies are available for comparison. QUANTITATIVE DATA SUMMARY: 2D MEASUREMENTS: Normal Ranges: Ao Root d: 2.90 cm (2.0-3.7cm) LAs: 3.10 cm (2.7-4.0cm) RVIDd: 2.50 cm (0.9-3.6cm) IVSd: 1.70 cm (0.6-1.1cm) LVPWd: 1.10 cm (0.6-1.1cm) LVIDd: 4.30 cm (3.9-5.9cm) LVIDs: 3.30 cm LV Mass Index: 121.0 g/m2 LV % FS 23.3 % LV SYSTOLIC FUNCTION BY 2D PLANIMETRY (MOD): Normal Ranges: EF-A4C View: 56.3 % (>55%) LV DIASTOLIC FUNCTION: Normal Ranges: MV Peak E: 0.57 m/s (0.7-1.2 m/s) MV Peak A: 0.80 m/s (0.42-0.7 m/s) E/A Ratio: 0.71 (1.0-2.2) MV lateral e' 0.07 m/s MV medial e' 0.07 m/s E/e' Ratio: 8.30 (<8.0) MITRAL VALVE: Normal Ranges: MV Vmax: 0.96 m/s (<1.3m/s) MV peak P.6 mmHg (<5mmHg) MV mean P.0 mmHg (<48mmHg) MITRAL INSUFFICIENCY: Normal Ranges: MR Vmax: 299.00 cm/s AORTIC VALVE: Normal Ranges: AoV Vmax: 1.18 m/s (<1.7m/s) AoV Peak P.6 mmHg (<20mmHg) AoV Mean P.0 mmHg (1.7-11.5mmHg) LVOT Max Jose C: 0.74 m/s (<1.1m/s) AoV VTI: 23.50 cm (18-25cm) LVOT VTI: 15.00 cm LVOT Diameter: 1.80 cm (1.8-2.4cm) AoV Area, VTI: 1.62 cm2 (2.5-5.5cm2) AoV Area,Vmax: 1.59 cm2 (2.5-4.5cm2) AoV Dimensionless Index: 0.64 PULMONIC VALVE: Normal Ranges: PV Max Jose C: 0.8 m/s (0.6-0.9m/s) PV Max P.3 mmHg [id number] Carmen Neely MD, [facility] Electronically signed on 01/14/2022 at 5:13:15 PM Final Normal [facility] Echocardiography Please click on the link to view the study images Normal [facility] [employer] [address] [employer] Work Phone: Falls Screening (Age 18+)on 01-13-2022 Fall risk assessment a) No falls within the last year [facility] [employer] [address] [employer] Work Phone: [facility] CARDIAC STRESS/REST INJE CTIONon 01-13-2022 [facility] C[facility] STRESS/REST INJECTION Patient Name: ALEJO FLOYD STUDY: MYOCARDIAL PERFUSION STRESS TEST WITH LEXISCAN Performing facility: [facility], [address] [place] [address], [address] Provider: Carmen Neely MD, [facility] PCP: Dr. Caren Lacy Supervising provider: Grisel Woods MD, [facility] [place] INDICATION: Abnormal EKG; Dyspnea HISTORY: Gender: M; Age: 61 y/o ; Height: 177.8 cm; Weight: 74.4936854 kg. Abnormal EKG; SOB; COPD; PVD TIA Throat Cancer Currently smoking. COMPARISON: No comparison. ACCESSION NUMBER(S): [id number]; [id number]; [id number] ORDERING CLINICIAN: CARMEN NEELY TECHNIQUE: ONE DAY protocol. Stress injection: Date:01-13-22, 35.2 mCi of Myoview IV 20 seconds after rapid injection of Lexiscan. Rest injection: Date: 01-13-22, 11.5 mCi of Myoview IV at rest. The patient had a rapid injection of 0.4 mg of Lexiscan IV over 10 seconds. Imaging was performed by gated tomographic technique. Reason for Lexiscan: dizziness/unsteady/fall risk STRESS TEST DATA: Resting heart rate was 70 BPM. Resting blood pressure was 126/80 mmHg. Peak blood pressure was 120/74 mmHg. Peak heart rate was 89 BPM. TEST TERMINATED DUE TO: Protocol completed FINDINGS: STRESS TEST RESULTS: Resting electrocardiogram revealed normal sinus rhythm. There were no significant ischemic ECG changes or dysrhythmias. The patient did not have chest pains/symptoms during procedure. There was a normal recovery phase. IMAGING RESULTS: Image quality was good. Rest and stress tomographic images were reviewed and revealed normal perfusion without evidence of ischemia, myocardial infarction, or left ventricular dilatation with stress. Overall left ventricular systolic function appeared to be normal without regional wall motion abnormalities. Ejection fraction was 54%. TID is 1.06 and is normal. There were evidence of apical attenuation artifact. IMPRESSION: Normal Lexiscan Myoview cardiac perfusion stress test. No evidence of ischemia or myocardial infarction by perfusion imaging. Normal left ventricular systolic function, ejection fraction 54%. No previous study available for comparison. Electronically signed by: YASH WOODARD MD Normal [facility] No Panel Informationon 01-13 Normal [facility] lk 600 DO Work Phone: GLUCOSE, BLOOD (POC)on 12-23 Glucose [Mass/Vol] 102 mg/dL Abnormal 74 - 99 mg/dL [facility] Comment on above: Location:[facility], [address] [place] [address] , [place], [place], [address] The Accu-Chek Inform II glucose meter has not been approved for testing on patients receiving intensive medical intervention or therapy and results from this point of care glucose test should not be used for patient management decisions in these cases. Inaccurate results may also occur from other interfering factors, such as N-acetylcysteine (blood concentrations of greater than 5mg/dL), galactose, extremes of hematocrit (<10 or >65), or high doses of ascorbic acid (vitamin C) greater than 3mg/dL. Consider alternate testing mechanisms (e.g. core lab, blood gas instrument) in the above situations. Interpretation and review of laboratory results Abnormal [facility] PET+CT Guidance for localiza tion of tumor of Skull base to mid-thigh-- W 18F-FDG Joanna 12-23-2021 IMPRESSION: 1. NECK: * No definite FDG avid neoplastic process. Mild diffuse FDG activity in the right neck, may represent post treatment inflammation. 2. CHEST: * No FDG avid neoplastic process. 3. ABDOMEN/PELVIS: * No FDG avid neoplastic process. 4. EXTREMITIES/SKELETON: * No suspicious FDG avid osseous lesion. Transcribe Date/Time: Dec 23 2021 10:51A Dictated by: MERISSA SINCLAIR MD This examination was interpreted and the report reviewed and electronically signed by: MERISSA SINCLAIR MD on Dec 23 2021 3:44PM EST Thank you for allowing us to participate in the care of your patient. Should there be any questions regarding this interpretation, please call [phone]. If you are unable to reach us at the number above, please feel free to contact [facility] at [phone]. DIVISION OF RADIOLOGY * * *Final Report* * * DATE OF EXAM: Dec 23 2021 10:20AM NRN [id number] - NM PET/CT SKULL-THIGH SUBQ / PROCEDURE REASON: Oropharnyx cancer (HCC) * * * * Physician Interpretation * * * * RESULT: EXAMINATION: NM PET/CT SKULL-THIGH SUBQ HISTORY: 61 years old Male with Oropharnyx cancer (HCC) . Status post right neck dissection and radiation/chemotherapy, completed radiation on 09/26/2021, completed chemotherapy on 09/24/2021. INDICATION: Study performed for subsequent treatment strategy. TECHNIQUE: F18-FDG administered IV was followed about 60 minutes later by PET imaging from thoracic inlet to proximal thighs with additional head and neck imaging. Free breathing low dose CT was performed without contrast for attenuation correction and anatomic localization. Blood glucose before FDG injection: 102 mg/dL FDG radionuclide dose: 10.[address] Dose-Length Product (DLP): 242 mGy*cm. CT Dose Reduction Employed: Automated exposure control COMPARISON: FDG PET/CT dated 04/05/2021, 12/25/2020 RESULT: - Mediastinum blood pool activity: Max SUV: 3.2 HEAD AND NECK: Physiologic uptake seen in the visualized brain, extraocular muscles, parapharyngeal soft tissues, vocal cords, and salivary glands. No definite FDG avid cervical mass. There are postsurgical changes in the right neck with mild diffuse fat stranding and mild diffuse FDG activity with max SUV of 3.1. Findings may be secondary to posttreatment inflammation. No distinct FDG avid lesions. No FDG avid lymphadenopathy. No FDG avid thyroid lesion. CHEST: Chest wall and axilla: No FDG avid axillary lymphadenopathy. Lungs and tracheobronchial tree and pleura: No FDG avid consolidation or FDG avid pulmonary nodule. . Note that PET/CT is not sensitive for pulmonary nodules less than 8 mm. Upper lobe predominant emphysema. Small amount of retained secretion in the trachea. No FDG avid pleural effusion or pleural mass. Mediastinum and Lymph nodes: No FDG avid mediastinal mass, mediastinal or hilar lymphadenopathy. Heart and great vessels: Physiologic activity in the mediastinal blood pool. Coronary artery calcification. ABDOMEN AND PELVIS: Physiologic uptake seen in the and GI tracts. Liver: No FDG avid lesion. Biliary: Gallbladder is absent. Spleen: No FDG avid lesion. No splenomegaly. Pancreas: No FDG avid lesion. Adrenals: No FDG avid lesion. Kidneys: No hydronephrosis, or FDG avid lesions. Unchanged 3-4 mm nonobstructing renal calculi. GI tract: No dilation or focal suspicious FDG avid lesion. Lymph nodes: No FDG avid abdominal or pelvic lymphadenopathy. There are subcentimeter paratracheal and subcarinal lymph nodes with FDG activity equal to blood pool background, may represent reactive changes. For example 0.6 cm subcarinal node has max SUV of 3.1. Mesentery/Peritoneum: No ascites or FDG avid mass. Vasculature: Vascular patency cannot be assessed due to lack of IV contrast. Atherosclerotic calcifications of the abdominal aorta and iliac vessels without aneurysm. Pelvis: No ascites, fluid collection or FDG avid process. Unchanged right posterior bladder diverticulum. There is ventral hernia containing nondilated bowel loops. BONES AND EXTREMITIES: No suspicious FDG avid osseous lesion. The imaged portions of the skeleton demonstrates age-related degenerative changes. No destructive osseous lesions. Paravertebral muscular activity in the thorax, possibly secondary to muscle spasm or posture. Greeter (topogram) images: No additional findings. DIVISION OF RADIOLOGY Provider, Doe Will [facility] - 12/23/2021 * * *Final Report* * * DATE OF EXAM: Dec 23 2021 10:20AM NRN [id number] - NM PET/CT SKULL-THIGH SUBQ / PROCEDURE REASON: Oropharnyx cancer (HCC) * * * * Physician Interpretation * * * * RESULT: EXAMINATION: NM PET/CT SKULL-THIGH SUBQ HISTORY: 61 years old Male with Oropharnyx cancer (HCC) . Status post right neck dissection and radiation/chemotherapy, completed radiation on 09/26/2021, completed chemotherapy on 09/24/2021. INDICATION: Study performed for subsequent treatment strategy. TECHNIQUE: F18-FDG administered IV was followed about 60 minutes later by PET imaging from thoracic inlet to proximal thighs with additional head and neck imaging. Free breathing low dose CT was performed without contrast for attenuation correction and anatomic localization. Blood glucose before FDG injection: 102 mg/dL FDG radionuclide dose: 10.[address] Dose-Length Product (DLP): 242 mGy*cm. CT Dose Reduction Employed: Automated exposure control COMPARISON: FDG PET/CT dated 04/05/2021, 12/25/2020 RESULT: - Mediastinum blood pool activity: Max SUV: 3.2 HEAD AND NECK: Physiologic uptake seen in the visualized brain, extraocular muscles, parapharyngeal soft tissues, vocal cords, and salivary glands. No definite FDG avid cervical mass. There are postsurgical changes in the right neck with mild diffuse fat stranding and mild diffuse FDG activity with max SUV of 3.1. Findings may be secondary to posttreatment inflammation. No distinct FDG avid lesions. No FDG avid lymphadenopathy. No FDG avid thyroid lesion. CHEST: Chest wall and axilla: No FDG avid axillary lymphadenopathy. Lungs and tracheobronchial tree and pleura: No FDG avid consolidation or FDG avid pulmonary nodule. . Note that PET/CT is not sensitive for pulmonary nodules less than 8 mm. Upper lobe predominant emphysema. Small amount of retained secretion in the trachea. No FDG avid pleural effusion or pleural mass. Mediastinum and Lymph nodes: No FDG avid mediastinal mass, mediastinal or hilar lymphadenopathy. Heart and great vessels: Physiologic activity in the mediastinal blood pool. Coronary artery calcification. ABDOMEN AND PELVIS: Physiologic uptake seen in the and GI tracts. Liver: No FDG avid lesion. Biliary: Gallbladder is absent. Spleen: No FDG avid lesion. No splenomegaly. Pancreas: No FDG avid lesion. Adrenals: No FDG avid lesion. Kidneys: No hydronephrosis, or FDG avid lesions. Unchanged 3-4 mm nonobstructing renal calculi. GI tract: No dilation or focal suspicious FDG avid lesion. Lymph nodes: No FDG avid abdominal or pelvic lymphadenopathy. There are subcentimeter paratracheal and subcarinal lymph nodes with FDG activity equal to blood pool background, may represent reactive changes. For example 0.6 cm subcarinal node has max SUV of 3.1. Mesentery/Peritoneum: No ascites or FDG avid mass. Vasculature: Vascular patency cannot be assessed due to lack of IV contrast. Atherosclerotic calcifications of the abdominal aorta and iliac vessels without aneurysm. Pelvis: No ascites, fluid collection or FDG avid process. Unchanged right posterior bladder diverticulum. There is ventral hernia containing nondilated bowel loops. BONES AND EXTREMITIES: No suspicious FDG avid osseous lesion. The imaged portions of the skeleton demonstrates age-related degenerative changes. No destructive osseous lesions. Paravertebral muscular activity in the thorax, possibly secondary to muscle spasm or posture. Greeter (topogram) images: No additional findings. IMPRESSION IMPRESSION: 1. NECK: * No definite FDG avid neoplastic process. Mild diffuse FDG activity in the right neck, may represent post treatment inflammation. 2. CHEST: * No FDG avid neoplastic process. 3. ABDOMEN/PELVIS: * No FDG avid neoplastic process. 4. EXTREMITIES/SKELETON: * No suspicious FDG avid osseous lesion. Transcribe Date/Time: Dec 23 2021 10:51A Dictated by: MERISSA SINCLAIR MD This examination was interpreted and the report reviewed and electronically signed by: MERISSA SINCLAIR MD on Dec 23 2021 3:44PM EST Thank you for allowing us to participate in the care of your patient. Should there be any questions regarding this interpretation, please call [phone]. If you are unable to reach us at the number above, please feel free to contact [facility] at [phone]. [facility] Radiology Study observation (narrative) [facility] PET+CT Guidance for localiza tion of tumor of Skull base to mid-thigh-- W 18F-FDG IVOrdered By: [facility] Provider on 12-23-2021 [facility] Falls Screening (Age 18+)on 11-27-2021 [facility] Work Phone: Fall risk assessment c) Not medically indicated -[facility] norma 250 DO Work Phone: Tobacco use status CP a) Yes -[facility] norma 250 DO Work Phone: Falls Screening (Age 18+) Yes [facility] norma 250 DO Work Phone: Falls Screening (Age 18+) 1-Several days -[facility] norma 250 DO Work Phone: Falls Screening (Age 18+) 3-Nearly every day -[facility] norma 250 DO Work Phone: Falls Screening (Age 18+) 0-Not at all -[facility] rodasy 250 DO Work Phone: Falls Screening (Age 18+) Somewhat Difficult -[facility] rodasy 250 DO Work Phone: Office Visit (Cardiology)on 11-27-2021 Follow-up visit Diagnoses/Problems Assessed Dyspnea (786.09) (R06.00) Abnormal EKG (794.31) (R94.31) PVD (peripheral vascular disease) (443.9) (I73.9) TIA (transient ischemic attack) (435.9) (G45.9) Body mass index (BMI) of 23.0 to 23.9 in adult (V85.1) (Z68.23) Current smoker (305.1) (F17.200) 1 pack of cigarettes every 4-5 days Depression (311) (F32.A) Orders Abnormal EKG, Dyspnea Echocardiogram; Status:Hold For - Scheduling,Retrospective Authorization; Requested for:[id number]; NM Cardiac Stress/Rest Nuclear Med Order; Status:Hold For - Scheduling,Retrospective Authorization; Requested for:[id number]; Radiologist to Determine Optimal Study : Y What are the patient's signs and symptoms? : dyspnea SocHx: Current smoker You need to stop smoking. Though it is not easy, more than half of all adult smokers have quit. We encourage you to write down all the reasons you should quit smoking and set a quit date for yourself. Ask us how we can help. You may also call 0-673-OAIT-NOW for free resources and assistance.; Status:Complete - Retrospective Authorization; Done: [id number] Tobacco Use Screening; Status:Complete; Done: [id number] Unlinked Stop: amLODIPine Besylate 5 MG Oral Tablet Patient Instructions Please bring all medicines, vitamins, and herbal supplements with you when you come to the office. Prescriptions will not be filled unless you are compliant with your follow up appointments or have a follow up appointment scheduled as per instruction of your physician. Refills should be requested at the time of your visit. to request records from Dr. Shyanne Najera MD from [facility] Follow up in 6 months I, Arlette Strange LPN, am scribing for and in the presence of, Dr. Carmen Neely MD Chief Complaint ALEJO FLOYD is being seen for a consultation for SRE. 61-year-old -[place] Citizen who is in my office for the first time to establish relationship with cardiology. The patient has history of active tobacco abuse and PAD involving mostly the left femoral artery where he had stenting done several years ago in [place]. He has no previous cardiac catheterizations or myocardial ischemia evaluation. He does have history of arrhythmias of unknown nature and is currently on amiodarone therapy. He does not recall having atrial fibrillation and has no previous cardioversions. We have no previous records to confirm the indication for amiodarone therapy. He does have COPD and uses inhalers. Has been on metoprolol but no DION inhibitor's and no calcium channel blockers. He has no hypertension at the present time. His blood pressure in the office today was below normal. He has no syncope orthopnea PND or lower extremity edema and currently has no claudication. He has recent lower extremity ultrasound revealing occlusion of the left femoral artery from the origin to the level of the knee. He seemed to have compensated for that with collaterals also had PVR study which I requested copies of. He has no gastrointestinal symptoms no hemoptysis no dysuria or hematuria no peptic ulcer disease no previous strokes but has history of TIA. EKG reveals sinus rhythm with diffuse ST and T changes. He does complain of dyspnea on exertion. Possibilities include CAD/COPD or other etiologies. Examination was remarkable for mild hypotension and mildly diminished breath sounds Assessment/recommendations: 1?significant PAD most affecting the left femoral artery has had previous stenting but recent ultrasound showed occlusion of the left femoral artery. He remains asymptomatic. Encouraged the patient to stop smoking and to walk on daily basis to recruit more collaterals. Since he does not have symptoms we will not initiate medical therapy. 2?abnormal EKG with dyspnea. Patient will need to have evaluation for ischemic heart disease and left ventricular ejection fraction valvular heart disease. Therefore Lexiscan MPI and echocardiograms are scheduled. 3?patient has history of cardiac arrhythmias of unknown nature. He is currently on amiodarone. If his noninvasive testing come back unremarkable I will discontinue the amiodarone. The long-term side effect of amiodarone were discussed with the patient and unfortunately has not been having any testing to assess for amiodarone toxicity. 4?patient has high depression score he is currently on medical therapy and he discussed this regularly with his PCP. 5?COPD from active tobacco use. The patient was advised to quit smoking completely. He does not follow with pulmonary medicine 6?the patient's lipid status is unknown we will check his lipid profile. Given his vascular disease he would likely need to be on statin 7?history of TIA, currently on aspirin. He would likely benefit from statin therapy Surgical History Problems History of Complete colonoscopy History of Hernia repair History of Lung surgery History of Splenectomy Current Meds Medication NameInstruction Albuterol 90 MCG/ACT AERS Albuterol Sulfate (2.5 MG/3ML) (more content not included)... Normal [facility] US ARTERY LEG BILon 11-27-19 US ARTERY LEG BEBA EXAMINATION: US NICHOLAS RY LEG BEBA HISTORY: General symptom COMPARISON: No relevant comparison available. TECHNIQUE: Color and Duplex Doppler ultrasound evaluation analysis were performed in the usual manner. FINDINGS: RIGHT LOWER EXTREMITY ARTERIAL: Abnormal biphasic waveform within the proximal femoral artery through distal calf arteries with moderate vessel narrowing and atherosclerotic disease. External Iliac PSV: 186.5 cm/s External Iliac EDV: 12.2 cm/s Common Femoral PSV: 79.3 cm/s Common Femoral EDV: 0.0 cm/s Superficial Femoral Proximal PSV: 106.9 cm/s Proximal EDV: 0 cm/s Mid PSV: 87.2 cm/s Mid EDV: 0cm/s Distal PSV: 150.2 cm/s Distal EDV: 0cm/s Popliteal Proximal PSV: 87.1 cm/s Popliteal Proximal EDV: 0cm/s Posterior Tibial Proximal PSV: 51.9 cm/s Proximal EDV: 0.0 cm/s Mid PSV: 61.8 cm/s Mid EDV: 0cm/s Distal PSV: 67.4 cm/s Distal EDV: 0cm/s Anterior Tibial Proximal PSV: 53.0 cm/s Proximal EDV: 0cm/s Mid PSV: 57.4 cm/s Mid EDV: 0.0 cm/s Distal PSV: 51.9 cm/s Distal EDV: 0cm/s LEFT LOWER EXTREMITY ARTERIAL: Complete occlusion of the femoral artery except for a short segment of the proximal femoral artery. Completely occluded femoral artery stent. Some reconstitution of flow within the very distal femoral artery as it becomes the popliteal artery, but demonstrating abnormal monophasic waveform and slow flow. Narrow tibial arteries with abnormal monophasic waveform. External Iliac PSV: 122.7 cm/s External Iliac EDV: 12.3 cm/s Common Femoral PSV: 74.1 cm/s Common Femoral EDV: 9.4 cm/s Superficial Femoral Proximal PSV: 70.6 cm/s Proximal EDV: 6.9 cm/s Mid PSV: Mid EDV: Distal PSV: 51.9 cm/s Distal EDV: 4.7 cm/s Popliteal Proximal PSV: 18.2 cm/s Popliteal Proximal EDV: 4.0 cm/s Posterior Tibial Proximal PSV: 15.5 cm/s Proximal EDV: 4.0 cm/s Mid PSV: 13.8 cm/s Mid EDV: 3.4 cm/s Distal PSV: 19.3 cm/s Distal EDV: 4.0 cm/s Anterior Tibial Proximal PSV: 17.1 cm/s Proximal EDV: 2.3 cm/s Mid PSV: 17.7 cm/s Mid EDV: 4.0 cm/s Distal PSV: 26.4 cm/s Distal EDV: 5.6 cm/s IMPRESSION: 1. Atherosclerotic narrowing of the right lower extremity arteries resulting in abnormal biphasic waveform throughout. 2. Complete occlusion of left femoral artery throughout majority of its length (likely due to atherosclerotic disease) with some reconstitution of flow within the distal femoral artery/popliteal artery producing low flow and abnormal monophasic waveform within the calf arteries. Electronically authenticated by: BELLA PEREIRA Date: 2021-11-26 07:46 Normal [facility] CT LSPINE WO CONon 2 CT LSKING WO CON EXAM: CT KHANG PIERRE C ON HISTORY: DORSALGIA, UNSPECIFIED COMPARISON: CT of the abdomen and pelvis from 2021. TECHNIQUE: Noncontrast CT was obtained through the lumbar spine. Dose reduction techniques were achieved by using automated exposure control and/or adjustment of mA and/or kV according to patient size and/or use of iterative reconstruction technique. FINDINGS: Osseous: Remote anterior wedge compression fracture deformity of L1 again noted. No acute fracture. Remaining vertebral body heights are maintained. Disc spaces are preserved. Small anterolateral osteophytes are present. No osseous lesion. Soft tissues: The abdominal aorta is normal in caliber. No retroperitoneal lymphadenopathy. Renal vascular calcifications are present. Additionally there are several renal lithiasis noted measuring up to 0.4 cm on the left. Atherosclerotic vascular calcification of the abdominal aorta and iliac arteries. Disc levels: T12-L1: Compression fracture deformity of L1. The spinal canal measures 1.4 cm anterior posterior. The neural foramina are patent. L1-L2: No disc protrusion, spinal canal stenosis, or neural foraminal stenosis. L2-L3: No disc protrusion, spinal canal stenosis, or neural foraminal stenosis. L3-L4: Small circumferential disc bulge. Mild effacement of ventral CSF. No significant foraminal stenosis. L4-L5: Small broad-based posterior disc bulge. Mild facet arthrosis. Mild spinal canal and bilateral foraminal stenosis. L5-S1: Broad-based posterior disc bulge. Moderate right and mild left facet arthrosis. Mild effacement of ventral CSF. Moderate foraminal stenosis. IMPRESSION: 1. No acute lumbar spine fracture. Remote L1 compression fracture deformity again noted. 2. Mild degenerative changes of the lumbar spine at L4-L5 and L5-S1. 3. Nonobstructing left renal lithiasis 0.4 cm. Electronically authenticated by: DARIEN HARP Date: 2021-11-20 10:19 Normal [facility] URINE PROFILEon 2 Bilirubin Ql (U) Negative Normal NEGATIVE [facility] Comment on above: Performed By: #### E RUR #### [facility] [address] [place] [address] Dr. Herb Jones Clarity (U) CLEAR Normal CLEAR [facility] Comment on above: Performed By: #### E RUR #### [facility] [address] [place] [address] Dr. Herb Jones Color (U) YELLOW Normal YELLOW [facility] Comment on above: Performed By: #### E RUR #### [facility] [address] [place] [address] Dr. Herb SPEAR A micrscopic examina tion will be performed if indicated. Normal [facility] Comment on above: Performed By: #### E RUR #### [facility] [address] [place] [address] Dr. Herb Jones Glucose Ql (U) Negative Normal NEGATIVE [facility] Comment on above: Performed By: #### E RUR #### [facility] [address] [place] [address] Dr. Herb Jones Hemoglobin Ql (U) Negative Normal NEGATIVE [facility] Comment on above: Performed By: #### E RUR #### [facility] [address] [place] [address] Dr. Herb Jones Ketones Ql (U) Negative Normal NEGATIVE [facility] Comment on above: Performed By: #### E RUR #### [facility] [address] [place] [address] Dr. Herb Jones LEUKOCYTES Negative Normal NEGATIVE [facility] Comment on above: Performed By: #### E RUR #### [facility] [address] [place] [address] Dr. Herb Jones Nitrite Ql (U) Negative Normal NEGATIVE [facility] Comment on above: Performed By: #### E RUR #### [facility] [address] [place] [address] Dr. Herb Jones pH (U) 7.0 [pH] Normal 5-9 [facility] Comment on above: Performed By: #### E RUR #### [facility] [address] [place], [place] [id number] Dr. Herb Jones SPEC GRAVITY 1.015 Normal 1.005-<=1. 025 [facility] Comment on above: Performed By: #### E RUR #### [facility] [address] [place] [address] Dr. Herb Jones UA PROTEIN Negative Normal NEGATIVE/ TRACE [facility] Comment on above: Performed By: #### E RUR #### [facility] [address] [place] [address] Dr. Herb Jones UR MICRO IND NOT INDICATED Normal [facility] Comment on above: Performed By: #### E RUR #### [facility] [address] [place] [address] Dr. Herb Jones Urobilinogen Qn (U) 4 {Shon'U}/dL Abnormal 0.2 - 1.0 [facility] Comment on above: Performed By: #### E RUR #### [facility] [address] [place] [address] Dr. Herb Jones BASIC METABOLIC PANELon 05-2 -2021 Calcium [Mass/Vol] 8.6 mg/dL Normal 8.6-10.3 [facility] Comment on above: Order Comment: No: D o not add to previous draw Performed By: #### 0 0071, 48988, 42187 #### [facility] [address] [place] [address], [place] Chloride [Moles/Vol] 108 mmol/L High 98-107 [facility] Comment on above: Order Comment: No: D o not add to previous draw Performed By: #### 0 0071, 57783, 71671 #### [facility] [address] [place] [address], [place] CO2 [Moles/Vol] 20 mmol/L Low 21-31 [facility] Comment on above: Order Comment: No: D o not add to previous draw Performed By: #### 0 0071, 22413, 98429 #### [facility] [address] [place] [address], [place] Creatinine [Mass/Vol] 0.83 mg/dL Normal 0.70-1.30 [facility] Comment on above: Order Comment: No: D o not add to previous draw Performed By: #### 0 0071, 60476, 58402 #### [facility] [address] [place] [address], [place] GFR/1.73 sq M.predicted among blacks MDRD (S/P/Bld) [Vol rate/Area] mL/min/{1.73_m2} Normal >60 [facility] Comment on above: Order Comment: No: D o not add to previous draw Performed By: #### 0 0071, 79779, 48741 #### [facility] [address] [place] [address], [place] GFR/1.73 sq M.predicted among non-blacks MDRD (S/P/Bld) [Vol rate/Area] mL/min/{1.73_m2} Normal >60 [facility] Comment on above: Order Comment: No: D o not add to previous draw Performed By: #### 0 0071, 77306, 41059 #### [facility] [address] [place] [address], [place] Glucose [Mass/Vol] 71 mg/dL Normal 70-100 [facility] Comment on above: Order Comment: No: D o not add to previous draw Performed By: #### 0 0071, 50356, 03099 #### [facility] [address] [place] [address], [place] Potassium [Moles/Vol] 3.2 mmol/L Low 3.5-5.1 [facility] Comment on above: Order Comment: No: D o not add to previous draw Performed By: #### 0 0071, 20574, 23301 #### [facility] [address] [place] [address], [place] Sodium [Moles/Vol] 140 mmol/L Normal 136-145 [facility] Comment on above: Order Comment: No: D o not add to previous draw Performed By: #### 0 0071, 60592, 10907 #### [facility] [address] Urea nitrogen [Mass/Vol] 21 mg/dL Normal 7-25 [facility] Comment on above: Order Comment: No: D o not add to previous draw Performed By: #### 0 0071, 58306, 64099 #### [facility] [address] CBC W/DIFFon 09-20-2021 ABS IMM GRANS 0.0 10*3/uL Normal 0.0-0.2 [facility] Comment on above: Order Comment: No: D o not add to previous draw Performed By: #### 1 0070 #### [facility] [address] ABS NEUTROPHILS 2.3 10*3/uL Normal 1.6-7.6 [facility] Comment on above: Order Comment: No: D o not add to previous draw Performed By: #### 1 0070 #### [facility] [address] [place] [address], [facility] Basophils (Bld) [#/Vol] 0.0 10*3/uL Normal 0.0-0.2 [facility] Comment on above: Order Comment: No: D o not add to previous draw Performed By: #### 1 0070 #### [facility] [address] [place] [address], [facility] Basophils/100 WBC (Bld) 0.3 % Normal 0.0-1.0 [facility] Comment on above: Order Comment: No: D o not add to previous draw Performed By: #### 1 0070 #### [facility] [address] [place] [address], [facility] Eosinophils (Bld) [#/Vol] 0.0 10*3/uL Normal 0.0-0.5 [facility] Comment on above: Order Comment: No: D o not add to previous draw Performed By: #### 1 0070 #### [facility] [address] [facility] [place] [address], [facility] Eosinophils/100 WBC (Bld) 0.5 % Normal 0.0-6.0 [facility] Comment on above: Order Comment: No: D o not add to previous draw Performed By: #### 1 0070 #### [facility] [address] [facility] Erythrocyte distribution width (RBC) [Ratio] 17.2 % High 11.5-15.0 [facility] Comment on above: Order Comment: No: D o not add to previous draw Performed By: #### 1 0070 #### [facility] [address] Hematocrit (Bld) [Volume fraction] 32.6 % Low 39.0-50.0 [facility] Comment on above: Order Comment: No: D o not add to previous draw Performed By: #### 1 0070 #### [facility] [address] [facility] [place] [address], [facility] Hemoglobin (Bld) [Mass/Vol] 10.7 g/dL Low 13.0-17.0 [facility] Comment on above: Order Comment: No: D o not add to previous draw Performed By: #### 1 0070 #### [facility] [address] [facility] [place] [address], [facility] IMMATURE GRANS 0.3 % Normal 0.0-1.0 [facility] Comment on above: Order Comment: No: D o not add to previous draw Performed By: #### 1 0070 #### [facility] [address] [facility] [place] [address], [facility] Lymphocytes (Bld) [#/Vol] 0.8 10*3/uL Low 1.2-4.0 [facility] Comment on above: Order Comment: No: D o not add to previous draw Performed By: #### 1 0070 #### [facility] [address] [place] [address], [facility] Lymphocytes/100 WBC (Bld) 21.9 % Normal 20.0-45.0 [facility] Comment on above: Order Comment: No: D o not add to previous draw Performed By: #### 1 0070 #### [facility] [address] [place] [address], [facility] MCH (RBC) [Entitic mass] 33.9 pg High 27.0-33.0 [facility] Comment on above: Order Comment: No: D o not add to previous draw Performed By: #### 1 0070 #### [facility] [address] [facility] [place] [id number], [facility] MCHC (RBC) [Mass/Vol] 32.8 g/dL Normal 32.0-35.0 [facility] Comment on above: Order Comment: No: D o not add to previous draw Performed By: #### 1 0070 #### [facility] [address] [facility] [place] [id number], [facility] MCV (RBC) [Entitic vol] 103.2 fL High 82.0-98.0 [facility] Comment on above: Order Comment: No: D o not add to previous draw Performed By: #### 1 0070 #### [facility] [address] [facility] [place] [id number], [facility] Monocytes (Bld) [#/Vol] 0.5 10*3/uL Normal 0.1-1.0 [facility] Comment on above: Order Comment: No: D o not add to previous draw Performed By: #### 1 0070 #### [facility] [address] [place] [address], [facility] MONOS 13.9 % High 5.0-12.0 [facility] Comment on above: Order Comment: No: D o not add to previous draw Performed By: #### 1 0070 #### [facility] [address] [place] [id number], [facility] Neutrophils/100 WBC (Bld) 63.1 % Normal 40.0-72.0 [facility] Comment on above: Order Comment: No: D o not add to previous draw Performed By: #### 1 0070 #### [facility] [address] [place] [id number], [facility] Nucleated RBC/100 WBC (Bld) [Ratio] 0 % Normal 0-0 [facility] Comment on above: Order Comment: No: D o not add to previous draw Performed By: #### 1 0070 #### [facility] [address] [place] [id number], [facility] PLAT CNT 254 10*3/uL Normal 150-400 [facility] Comment on above: Order Comment: No: D o not add to previous draw Performed By: #### 1 0070 #### [facility] [address] [place] [address], [facility] RBC (Bld) [#/Vol] 3.16 10*6/uL Low 4.20-5.70 [facility] Comment on above: Order Comment: No: D o not add to previous draw Performed By: #### 1 0070 #### [facility] [address] [place] [address], [place] WBC (Bld) [#/Vol] 3.66 10*3/uL Low 4.00-10.60 [facility] Comment on above: Order Comment: No: D o not add to previous draw Performed By: #### 1 0070 #### [facility] [address] [place] [address], [place] MAGNESIUM BLOODon 09-20-2021 Magnesium [Mass/Vol] 1.8 mg/dL Low 1.9-2.7 [facility] Comment on above: Order Comment: No: D o not add to previous draw Performed By: #### 0 0071, 40776, 65762 #### [facility] [address] [place] [address], [facility] PHOSPHORUS BLOODon Phosphate [Mass/Vol] 1.8 mg/dL Low 2.5-5.0 [facility] Comment on above: Order Comment: No: D o not add to previous draw Performed By: #### 0 0071, 06027, 95129 #### [facility] [address] [place] [address], [facility] APTTon 09-19-2021 aPTT Coag (Bld) [Time] 25.3 s Normal 25.0-35.0 [facility] Comment on above: Order Comment: No: D o not add to previous draw Result Comment: ALL RESULTS MUST BE INTERPRETED WITH RESPECT TO BLOOD DRAWING ARTIFACT OR DILUTION ERROR OF ANTICOAGULANT AT THE TIME OF SAMPLING. THE APTT SHOULD NOT BE USED TO MONITOR UNFRACTIONATED HEPARIN THERAPY, THIS LABORATORY NO LONGER HAS AN ESTABLISHED THERAPEUTIC RANGE BASED ON THE APTT. IT IS RECOMMENDED THAT THE [facility] - HEPARIN ASSAY (ANTI-XA ACTIVITY) BE USED FOR THIS PURPOSE. Performed By: #### 0 0071, 42074, 41589 #### [facility] [address] [place] [address], [facility] BASIC METABOLIC PANELon 09-01 Calcium [Mass/Vol] 9.0 mg/dL Normal 8.6-10.3 [facility] Comment on above: Order Comment: No: D o not add to previous draw Performed By: #### 0 0071, 14740, 65328 #### [facility] [address] [place] [address], [facility] Chloride [Moles/Vol] 104 mmol/L Normal 98-107 [facility] Comment on above: Order Comment: No: D o not add to previous draw Performed By: #### 0 0071, 87556, 80583 #### [facility] [address] [place] [address], [facility] CO2 [Moles/Vol] 23 mmol/L Normal 21-31 [facility] Comment on above: Order Comment: No: D o not add to previous draw Performed By: #### 0 0071, 35846, 50576 #### [facility] [address] [place] [address], [facility] Creatinine [Mass/Vol] 1.29 mg/dL Normal 0.70-1.30 [facility] Comment on above: Order Comment: No: D o not add to previous draw Performed By: #### 0 0071, 36955, 05277 #### [facility] [address] [place] [address], [facility] eGFR- non- 57 ml/min/1.73sq m Abnormal >60 [facility] Comment on above: Order Comment: No: D o not add to previous draw Performed By: #### 0 0071, 93430, 09860 #### [facility] [address] [place] [address], [facility] GFR/1.73 sq M.predicted among blacks MDRD (S/P/Bld) [Vol rate/Area] mL/min/{1.73_m2} Normal >60 [facility] Comment on above: Order Comment: No: D o not add to previous draw Performed By: #### 0 0071, 44551, 79278 #### [facility] [address] [place] [address], [facility] Glucose [Mass/Vol] 131 mg/dL High 70-100 [facility] Comment on above: Order Comment: No: D o not add to previous draw Performed By: #### 0 0071, 77657, 21354 #### [facility] [address] [place] [address], [place] Potassium [Moles/Vol] 3.1 mmol/L Low 3.5-5.1 [facility] Comment on above: Order Comment: No: D o not add to previous draw Performed By: #### 0 0071, , 89153 #### [facility] [address] [facility]. [address] Sodium [Moles/Vol] 141 mmol/L Normal 136-145 [facility] Comment on above: Order Comment: No: D o not add to previous draw Performed By: #### 0 0071, 78662, 34030 #### [facility] [address] Urea nitrogen [Mass/Vol] 40 mg/dL High 7-25 [facility] Comment on above: Order Comment: No: D o not add to previous draw Performed By: #### 0 0071, , 42128 #### [facility] [address] CBC W/DIFFon 09-19-2021 ABS IMM GRANS 0.0 10*3/uL Normal 0.0-0.2 [facility] Comment on above: Performed By: #### 0 0071, , 22394 #### [facility] [address] ABS NEUTROPHILS 3.2 10*3/uL Normal 1.6-7.6 [facility] Comment on above: Performed By: #### 0 0071, , 18843 #### [facility] [address] Basophils (Bld) [#/Vol] 0.0 10*3/uL Normal 0.0-0.2 [facility] Comment on above: Performed By: #### 0 0071, 08276, 83821 #### [facility] [address] Basophils/100 WBC (Bld) 0.5 % Normal 0.0-1.0 [facility] Comment on above: Performed By: #### 0 0071, , 83589 #### [facility] [address] [facility] [address] Eosinophils (Bld) [#/Vol] 0.0 10*3/uL Normal 0.0-0.5 [facility] Comment on above: Performed By: #### 0 0071, 50759, 88530 #### [facility] [address] [facility] [place] [address], [facility] Eosinophils/100 WBC (Bld) 0.0 % Normal 0.0-6.0 [facility] Comment on above: Performed By: #### 0 007, , 90156 #### [facility] [address] Erythrocyte distribution width (RBC) [Ratio] 17.3 % High 11.5-15.0 [facility] Comment on above: Performed By: #### 0 0071, , 87748 #### [facility] [address] [facility]. [address] Hematocrit (Bld) [Volume fraction] 37.6 % Low 39.0-50.0 [facility] Comment on above: Performed By: #### 0 007, , 51057 #### [facility] [address] [facility]. [address] Hemoglobin (Bld) [Mass/Vol] 12.7 g/dL Low 13.0-17.0 [facility] Comment on above: Performed By: #### 0 0071, 34272, 29899 #### [facility] [address] [place] [address], [facility] IMMATURE GRANS 0.2 % Normal 0.0-1.0 [facility] Comment on above: Performed By: #### 0 0071, 74441, 03870 #### [facility] [address] [place] [address], [facility] Lymphocytes (Bld) [#/Vol] 0.6 10*3/uL Low 1.2-4.0 [facility] Comment on above: Performed By: #### 0 0071, 47548, 53903 #### [facility] [address] Lymphocytes/100 WBC (Bld) 13.1 % Low 20.0-45.0 [facility] Comment on above: Performed By: #### 0 0071, , 31247 #### [facility] [address] MCH (RBC) [Entitic mass] 34.0 pg High 27.0-33.0 [facility] Comment on above: Performed By: #### 0 0071, , 23762 #### [facility] [address] MCHC (RBC) [Mass/Vol] 33.8 g/dL Normal 32.0-35.0 [facility] Comment on above: Performed By: #### 0 007, , 06161 #### [facility] [address] MCV (RBC) [Entitic vol] 100.5 fL High 82.0-98.0 [facility] Comment on above: Performed By: #### 0 007, , 36140 #### [facility] [address] Monocytes (Bld) [#/Vol] 0.5 10*3/uL Normal 0.1-1.0 [facility] Comment on above: Performed By: #### 0 0071, 14505, 75831 #### [facility] [address] MONOS 11.4 % Normal 5.0-12.0 [facility] Comment on above: Performed By: #### 0 0071, , 92527 #### [facility] 3000 [place] [address], [facility] Neutrophils/100 WBC (Bld) 74.8 % High 40.0-72.0 [facility] Comment on above: Performed By: #### 0 0071, 28167, 08875 #### [facility] [address] [place] [address], [facility] Nucleated RBC/100 WBC (Bld) [Ratio] 0 % Normal 0-0 [facility] Comment on above: Performed By: #### 0 0071, 07055, 19008 #### [facility] [address] [facility] [place] [address], [facility] PLAT CNT 257 10*3/uL Normal 150-400 [facility] Comment on above: Performed By: #### 0 0071, 59041, 10653 #### [facility] [address] [facility] [address], [facility] RBC (Bld) [#/Vol] 3.74 10*6/uL Low 4.20-5.70 [facility] Comment on above: Performed By: #### 0 0071, 39974, 58619 #### [facility] [address] [facility] [place] [address], [facility] WBC (Bld) [#/Vol] 4.28 10*3/uL Normal 4.00-10.60 [facility] Comment on above: Performed By: #### 0 0071, 61448, 78662 #### [facility] [address] [place] [id number], [facility] LACTATE WITH REFLEXon 2021 Lactate [Moles/Vol] 1.2 mmol/L Normal .5-2.2 [facility] Comment on above: Order Comment: No: D o not add to previous draw Performed By: #### 3 1414 #### [facility] [address] [place] [address], [facility] LIVER BATTERYon 09-19-2021 Albumin [Mass/Vol] 4.0 g/dL Normal 3.5-5.7 [facility] Comment on above: Order Comment: No: D o not add to previous draw Performed By: #### 0 0071, 20400, 55716 #### [facility] [address] [place] [address], [place] ALKALINE PHOSPH 77 IU/L Normal 34-104 [facility] Comment on above: Order Comment: No: D o not add to previous draw Performed By: #### 0 0071, 51644, 56273 #### [facility] [address] [place] [address], [place] ALT [Catalytic activity/Vol] 15 U/L Normal 7-52 [facility] Comment on above: Order Comment: No: D o not add to previous draw Performed By: #### 0 0071, 36589, 29135 #### [facility] [address] [place] [address], [place] AST [Catalytic activity/Vol] 16 U/L Normal 13-39 [facility] Comment on above: Order Comment: No: D o not add to previous draw Performed By: #### 0 0071, 62779, 83792 #### [facility] [address] [place] [address], [place] Bilirubin [Mass/Vol] 1.6 mg/dL High 0.3-1.0 [facility] Comment on above: Order Comment: No: D o not add to previous draw Performed By: #### 0 0071, 88440, 31003 #### [facility] [address] [place] [address], [place] Bilirubin.direct [Mass/Vol] 0.5 mg/dL High 0.0-0.2 [facility] Comment on above: Order Comment: No: D o not add to previous draw Performed By: #### 0 0071, 71207, 13948 #### [facility] [address] [place] [address], [place] Protein [Mass/Vol] 7.0 g/dL Normal 6.0-8.3 [facility] Comment on above: Order Comment: No: D o not add to previous draw Performed By: #### 0 0071, 25134, 80519 #### [facility] [address] [place] [address], [facility] MAGNESIUM BLOODon 2 Magnesium [Mass/Vol] 2.4 mg/dL Normal 1.9-2.7 [facility] Comment on above: Order Comment: No: D o not add to previous draw Performed By: #### 1 0070 #### [facility] [address] [place] [address], [facility] Magnesium [Mass/Vol] 1.9 mg/dL Normal 1.9-2.7 [facility] Comment on above: Order Comment: No: D o not add to previous draw Performed By: #### 0 0071, 11303, 70540 #### [facility] [address] [place] [address], [facility] PHOSPHORUS BLOODon 2 Phosphate [Mass/Vol] 2.8 mg/dL Normal 2.5-5.0 [facility] Comment on above: Order Comment: No: D o not add to previous draw Performed By: #### 0 0071, 04891, 30239 #### [facility] [address] PROTHROMBIN TIMEon 2 INR Coag (PPP) [Relative time] 1.16 {INR} Normal 0.91-1.16 [facility] Comment on above: Order Comment: No: D o not add to previous draw Result Comment: ACCC P RECOMMENDED INR FOR WARFARIN THERAPY ------- ------- CONDITION INR PROPHYLAXIS OF VENOUS THROMBOSIS 2-3 (HIGH-RISK SURGERY) TREATMENT OF VENOUS THROMBOSIS 2-3 TREATMENT OF PULMONARY EMBOLISM 2-3 PREVENTION OF SYSTEMIC EMBOLISM: 2-3 ACUTE MYOCARDIAL INFARCTION TISSUE HEART VALVES VALVULAR HEART DISEASE ATRIAL FIBRILLATION RECURRENT SYSTEMIC EMBOLISM MECHANICAL HEART VALVE 2.5-3.5 FROM: ORAL ANTICOAGULANTS. MECHANISM OF ACTION, CLINICAL EFFECTIVENESS, AND OPTIMAL THERAPEUTIC RANGE. CHEST 1995;108:[id number]. Performed By: #### 0 0071, 31359, 49355 #### [facility] [address] PT Coag (PPP) [Time] 14.7 s Normal 12.3-14.8 [facility] Comment on above: Order Comment: No: D o not add to previous draw Result Comment: ALL RESULTS MUST BE INTERPRETED WITH RESPECT TO BLOOD DRAWING ARTIFACT OR DILUTION ERROR OF ANTICOAGULANT AT THE TIME OF SAMPLING. Performed By: #### [id number] #### [facility] [address] [facility]. [address] CBC W Auto Differential pane l (Bld)on 09-16-2021 Abs Immature Gran 0.04 k/uL <0.10 k/uL [facility] Basophils (Bld) [#/Vol] 10*3/uL <0.11 k/uL [facility] Basophils/100 WBC (Bld) 0.2 % [facility] Differential cell count method Nom (Bld) Auto [facility] Eosinophils (Bld) [#/Vol] 10*3/uL <0.46 k/uL [facility] Eosinophils/100 WBC (Bld) 0.2 % [facility] Erythrocyte distribution width (RBC) [Ratio] 18.2 % High 11.5 - 15.0 % [facility] Hematocrit (Bld) [Volume fraction] 40.7 % 39.0 - 51.0 % [facility] Hemoglobin (Bld) [Mass/Vol] 13.5 g/dL 13.0 - 17.0 g/dL [facility] Immature Gran % 0.6 % [facility] Lymphocytes (Bld) [#/Vol] 0.67 10*3/uL Low 1.00 - 4.00 k/uL [facility] Lymphocytes/100 WBC (Bld) 10.9 % [facility] MCH (RBC) [Entitic mass] 33.8 pg 26.0 - 34.[address] [facility] MCHC (RBC) [Mass/Vol] 33.2 g/dL 30.5 - 36.0 g/dL [facility] MCV (RBC) [Entitic vol] 102.0 fL High 80.0 - 100.[address] [facility] Monocytes (Bld) [#/Vol] 0.38 10*3/uL <0.87 k/uL [facility] Monocytes/100 WBC (Bld) 6.2 % [facility] Neutrophils (Bld) [#/Vol] 5.06 10*3/uL 1.45 - 7.50 k/uL [facility] Neutrophils/100 WBC (Bld) 81.9 % [facility] Nucleated RBC (Bld) [#/Vol] 10*3/uL <0.01 k/uL [facility] Nucleated RBC/100 WBC (Bld) [Ratio] 0.0 /[address] [facility] Platelet mean volume (Bld) [Entitic vol] 8.7 fL Low 9.0 - 12.[address] [facility] Platelets (Bld) [#/Vol] 268 10*3/uL 150 - 400 k/uL [facility] RBC (Bld) [#/Vol] 3.99 10*6/uL Low 4.20 - 6.00 m/uL [facility] WBC (Bld) [#/Vol] 6.17 10*3/uL 3.70 - 11.00 k/uL [facility] Comprehensive metabolic 2000 panelon 09-16-2021 Albumin [Mass/Vol] 5.1 g/dL High 3.9 - 4.9 g/dL [facility] ALP [Catalytic activity/Vol] 104 U/L 38 - 113 U/L [facility] ALT [Catalytic activity/Vol] 17 U/L 10 - 54 U/L [facility] Anion gap [Moles/Vol] 17 mmol/L 9 - 18 mmol/L [facility] AST [Catalytic activity/Vol] [facility] Bilirubin [Mass/Vol] 1.3 mg/dL 0.2 - 1 .3 mg/dL [facility] Calcium [Mass/Vol] 10.6 mg/dL High 8.5 - 10. 2 mg/dL [facility] Chloride [Moles/Vol] 99 mmol/L 97 - 10 5 mmol/L [facility] CO2 [Moles/Vol] 20 mmol/L Low 22 - 30 mmol/L [facility] Creatinine [Mass/Vol] 1.91 mg/dL High 0.73 - 1.22 mg/dL [facility] Estimated Glomerular Filtration Rate 40 mL/min/1.73m Low >=60 mL/min/1.[address] [facility] Glucose [Mass/Vol] 162 mg/dL High 74 - 99 mg/dL [facility] Potassium [Moles/Vol] 4.5 mmol/L 3.7 - 5.1 mmol/L [facility] Protein [Mass/Vol] 8.4 g/dL High 6.3 - 8.0 g/dL [facility] Sodium [Moles/Vol] 136 mmol/L 136 - 144 mmol/L [facility] Urea nitrogen [Mass/Vol] 35 mg/dL High 9 - 24 mg/dL [facility] CBC W Auto Differential pane l (Bld)on 08-26-2021 Abs Immature Gran 0.08 k/uL <0.10 k/uL [facility] Basophils (Bld) [#/Vol] 10*3/uL <0.11 k/uL [facility] Basophils/100 WBC (Bld) 0.2 % [facility] Differential cell count method Nom (Bld) Auto [facility] Eosinophils (Bld) [#/Vol] 0.05 10*3/uL <0.46 k/uL [facility] Eosinophils/100 WBC (Bld) 0.6 % [facility] Erythrocyte distribution width (RBC) [Ratio] 16.5 % High 11.5 - 15.0 % [facility] Hematocrit (Bld) [Volume fraction] 36.5 % Low 39.0 - 51.0 % [facility] Hemoglobin (Bld) [Mass/Vol] 11.9 g/dL Low 13.0 - 17.0 g/dL [facility] Immature Gran % 0.9 % [facility] Lymphocytes (Bld) [#/Vol] 1.39 10*3/uL 1.00 - 4.00 k/uL [facility] Lymphocytes/100 WBC (Bld) 15.6 % [facility] MCH (RBC) [Entitic mass] 32.2 pg 26.0 - 34.[address] [facility] MCHC (RBC) [Mass/Vol] 32.6 g/dL 30.5 - 36.0 g/dL [facility] MCV (RBC) [Entitic vol] 98.6 fL 80.0 - 100.[address] [facility] Monocytes (Bld) [#/Vol] 0.84 10*3/uL <0.87 k/uL [facility] Monocytes/100 WBC (Bld) 9.4 % [facility] Neutrophils (Bld) [#/Vol] 6.52 10*3/uL 1.45 - 7.50 k/uL [facility] Neutrophils/100 WBC (Bld) 73.3 % [facility] Nucleated RBC (Bld) [#/Vol] 10*3/uL <0.01 k/uL [facility] Nucleated RBC/100 WBC (Bld) [Ratio] 0.0 /[address] [facility] Platelet mean volume (Bld) [Entitic vol] 9.6 fL 9.0 - 12.[address] [facility] Platelets (Bld) [#/Vol] 259 10*3/uL 150 - 400 k/uL [facility] RBC (Bld) [#/Vol] 3.70 10*6/uL Low 4.20 - 6.00 m/uL [facility] WBC (Bld) [#/Vol] 8.90 10*3/uL 3.70 - 11.00 k/uL [facility] Comprehensive metabolic 2000 panelon 08-26-2021 Albumin [Mass/Vol] 4.5 g/dL 3.9 - 4.9 g/dL [facility] ALP [Catalytic activity/Vol] 84 U/L 38 - 113 U/L [facility] ALT [Catalytic activity/Vol] 16 U/L 10 - 54 U/L [facility] Anion gap [Moles/Vol] 15 mmol/L 9 - 18 mmol/L [facility] AST [Catalytic activity/Vol] [facility] Bilirubin [Mass/Vol] 0.6 mg/dL 0.2 - 1 .3 mg/dL [facility] Calcium [Mass/Vol] 9.6 mg/dL 8.5 - 10. 2 mg/dL [facility] Chloride [Moles/Vol] 106 mmol/L High 97 - 10 5 mmol/L [facility] CO2 [Moles/Vol] 19 mmol/L Low 22 - 30 mmol/L [facility] Creatinine [Mass/Vol] 1.01 mg/dL 0.73 - 1.22 mg/dL [facility] Estimated Glomerular Filtration Rate 85 mL/min/1.73m >=60 mL/min/1.[address] [facility] Glucose [Mass/Vol] 95 mg/dL 74 - 99 mg/dL [facility] Potassium [Moles/Vol] 4.7 mmol/L 3.7 - 5.1 mmol/L [facility] Protein [Mass/Vol] 7.2 g/dL 6.3 - 8.0 g/dL [facility] Sodium [Moles/Vol] 140 mmol/L 136 - 144 mmol/L [facility] Urea nitrogen [Mass/Vol] 17 mg/dL 9 - 24 mg/dL 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 Technique: Spiral CT acquisition of the chest from the thoracic inlet to the upper abdomen following IV contrast. MQ: [id number] Contrast: 100 mL Omnipaque [address] Radiation dose: Integrated Dose-length product (DLP) for this visit = 877 mGy*cm CT Dose Reduction Employed: Automated exposure control (AEC) Comparison: PET/CT exams dated 04/05/2021 and 12/25/2020 RESULT: Limitations: None. Lines, tubes, and devices: None. Lung parenchyma and airways: There is moderate severity diffuse centrilobular emphysema within upper lobe predominance. A staple line in the right upper lobe is suggestive of prior wedge resection. Dependent reticular opacities bilaterally are most consistent with subsegmental atelectasis, similar to the prior PET/CT. No focal consolidation. A left lower lobe nodular density located anteriorly along the major fissure, image 156 measuring 5 mm appears stable since 12/25/2020 and may represent a region of atelectasis although should be assessed on follow-up. No new or enlarging pulmonary nodule. No pulmonary edema. The central airways are patent without suspicious endobronchial lesion. Minimal debris in the dependent trachea, image 34, is most consistent with mucus/secretions. Pleural space: No pleural effusion, pleural thickening, or pneumothorax. Lower neck, lymph nodes, and mediastinum: A neck CT which is performed concurrently, is reported separately. The imaged thyroid gland is unremarkable. No supraclavicular or axillary lymphadenopathy. There are borderline enlarged mediastinal lymph nodes. For reference, an AP window lymph node, image 77 measures 0.9 cm in short axis, stable in size since the prior PET/CT from 04/05/2021. A subcarinal lymph node, image 93 measures 1 cm in short axis, stable. A right paratracheal lymph node, image 45 measuring 0.7 cm in short axis is stable in size. No hilar lymphadenopathy. The esophagus is decompressed. Heart, pericardium, and thoracic vessels: There is mild atherosclerosis of the thoracic aorta and branch vessels. 3 vessel aortic arch. The thoracic aorta is normal in caliber measuring 3.1 cm in diameter in the mid ascending segment. The main pulmonary artery is normal in caliber measuring 2.2 cm in diameter. Moderate severity three-vessel coronary artery atherosclerotic calcifications are present although this exam is not optimized for coronary artery assessment. Heart size is normal. No pericardial effusion. Bones and soft tissues: No destructive lytic or blastic bone lesion. There is a mild compression fracture of the L1 vertebral body, unchanged compared to the prior PET/CT from 04/05/2021. Upper abdomen: No abnormality identified within the imaged portions of the liver, pancreas, adrenal glands, or left kidney. The right kidney is not imaged. A soft tissue nodule in the left upper abdominal quadrant seen on image 172 is unchanged and probably a splenule. The spleen is not seen and may be atrophied or absent. Greeter (topogram) images: No additional findings. IMPRESSION: 1. Borderline enlarged mediastinal lymph nodes are stable in size since the prior PET/CT from 04/05/2021 and are indeterminate, possibly either reactive or neoplastic in etiology. Attention on follow-up is recommended. No new thoracic lymphadenopathy. 2. A 5 mm indeterminate nodular density along the left major fissure appears unchanged since 12/25/2020 and may represent a region of atelectasis although should also be assessed on follow-up. No new or enlarging pulmonary nodule. 3. Moderate severity diffuse centrilobular emphysema with an upper lobe predominance. Rigging Supervisor: EDGAR Transcribe Date/Time: Jun 21 2021 5:58A Dictated by : DARIEN PARIKH MD This examination was interpreted and the report reviewed and electronically signed by: DARIEN PARIKH MD on Jun 21 2021 6:26AM EST [id number] Normal [facility] CT NECK SOFT TISSUE W IVCONo n 06-20-2021 CT NECK SOFT TISSUE W IVCON * * *Final Report* * * DATE OF EXAM: Jun 20 2021 3:43PM [facility] 0013 - CT NECK SOFT TISSUE W IVCON / PROCEDURE REASON: multiple diagnoses * * * * Physician Interpretation * * * * CT NECK SOFT TISSUE W IVCON HISTORY: Cancer of base of tongue - Lung nodules - Localized swelling, mass or lump of neck TECHNIQUE: CT neck soft tissues following IV administration of [address] Dose-Length Product (DLP): 877 mGy*cm CT Dose Reduction Employed: Automated exposure control (AEC) COMPARISON: CT neck 07/09/2020; PET/CT 04/05/2021, 12/25/2020 RESULT: Post-treatment changes: Diffuse subcutaneous reticulation throughout the anterior neck, thickening of the left greater than right platysma muscles, thickening/edema of the epiglottis, diffuse supraglottic mucosal-submucosal edema, and slight atrophy and increased attenuation of the submandibular glands, compatible with postradiation changes. Neoplasm: No discrete confluent soft tissue or abnormal enhancement involving the left lateral oropharynx to correspond with focal FDG-avidity on PET/CT of 04/05/2021. No discrete residual confluent soft tissue or abnormal enhancement in the region of the right tongue base, accounting for streak artifact from dental amalgam. Lymph nodes: Pathologic centrally necrotic right level II lymph node measures 25 x 17 mm in maximum transaxial dimensions (centered on axial image 108), suspect increased in size since PET/CT of 04/05/2021, otherwise poorly delineated on the prior examination secondary to acquisition parameters. Additional smaller partially calcified right level II lymph node appears grossly similar approximately 10 x 7 mm (image 106). Few additional small nonspecific lymph nodes scattered throughout the neck. No discrete new pathologic lymph nodes. Aerodigestive tract: The oral cavity is partially obscured by artifact from dental amalgam. Scattered dental caries. The nasal cavities, remaining laryngeal structures and infraglottic trachea are unremarkable. Major salivary glands: Submandibular gland postradiation changes. Unremarkable parotid glands. Thyroid gland: Within normal limits. Carotid space: Long segment eccentric soft plaque formation in the distal left common carotid artery, and chronic occlusion of the left internal carotid artery from the bifurcation extending intracranially with reconstitution in the left A1/M1 segments via collateral flow. Mild-moderate eccentric mixed plaque formation at the right carotid bifurcation. Intracranial contents: Imaged portions within normal limits. Paranasal sinuses, middle ears, mastoids: Small polyp versus retention cyst in the left maxillary antrum. Clear middle ear cavities and mastoid air cells. Orbits: Within normal limits. Bones: No suspicious osseous lesions in the imaged calvarium, skull base and spine. Straightening of the cervical lordosis. No significant spondylotic changes. Symmetric anterior subluxation at each temporomandibular joint. Lungs: Moderate centrilobular emphysema. A chest CT was performed concurrently and is dictated separately. Greeter (topogram) images: No significant findings. 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 Residual pathologic right level II lymphadenopathy, suspect increased in size since PET/CT of 04/05/2021. No discrete new pathologic lymph nodes. Chronically occluded left ICA. Rigging Supervisor: EDGAR Transcribe Date/Time: Jun 20 2021 4:24P Dictated by : CASSIE WONG MD This examination was interpreted and the report reviewed and electronically signed by: CASSIE WONG MD on Jun 20 2021 4:45PM EST [id number] Normal [facility] HISTORY PHYSICALon HISTORY PHYSICAL HNO ID: [id number] Author: Ana Hernandez APRN.[employer] Service: ? Author Type: Nurse Practitioner Type: HANDP Filed: 06/25/2021 6:49 AM Note Text: HISTORY AND PHYSICAL EXAMINATION SERVICE DATE: 06/11/2021 SERVICE TIME: 1:09 PM PRIMARY CARE PHYSICIAN: Gildardo Lacy MD REASON FOR VISIT: Alejo Floyd is a 60 year old male who is scheduled for Procedure(s): DIAGNOSTIC LARYNGOSCOPY W/ FLEXIBLE FIBEROPTIC SCOPE (N/A) DISSECTION NECK RADICAL (Right) at the request of Dr. Darien Olivarez for consultation. My final recommendation will be communicated back to the requesting physician by way of shared medical record or letter. Subjective The patient has the following: ACTIVE PROBLEM LIST Severe Protein-Calorie Malnutrition (Hcc) Cancer of Base of Tongue (Hcc) Essential Hypertension, Benign Tachycardia Pvd (Peripheral Vascular Disease) (Hcc) Peripheral Neuropathy History of Transient Ischemic Attack (Tia) Copd (Chronic Obstructive Pulmonary Disease) (Hcc) Current Smoker Gerd (Gastroesophageal Reflux Disease) Prediabetes Depression Migraine Insomnia Dysphagia COVID-19 Immunization Status Overdue - COVID-19 VACCINE (4 - Booster) Overdue since 05/22/2021 12/20/2020 Imm Admin: COVID-19 vaccine (UNSPECIFIED) 08/01/2020 Imm Admin: COVID-19 vaccine (PFIZER-BIONTECH) 07/11/2020 Imm Admin: COVID-19 vaccine (PFIZER-BIONTECH) Only the first 3 history entries have been loaded, but more history exists. CHIEF COMPLAINT: Pre-op exam HPI: DS is a 60 yo seen for PAC due to scheduled above surgery because of tongue cancer. 06/03/2021 Dr Olivarez Consultation requested by Dr. Bagley for an opinion regarding scc recurrence. My final recommendations will be communicated back to the requesting physician by way of shared Medical record or letter to requesting physician via US mail. ? MEDICAL DECISION MAKING: Pt is a 60 year old male with a history of borderline htn and diabetes, COPD, emphysema. History of right base of tongue scc, treated with chemoradiation 7000cGy in [address] Carpenter completed in sep 28 2020. PET scan was done in 12/25/20 showing right level II cervical node that was thought to be reactive. However repeat PET scan on 04/05/21 showed increased size of the level II node on the right side, more consistent with recurrence. Also noted is a new left oropharyngeal FDG uptake. Per Dr. Carpentre's note on 05/15/21 - Underwent FNA of the right cervical lymph node showing suspicion forsquamous cell carcinoma. On exam right lymph node is palpable, hard and fixed. ? - flexible scope today showing no obvious masses at the base of tongue - discussed direct laryngoscopy with biopsy as well as right radical neck dissection with possible sacrifice of CN XI however we would like to have an updated CT scan of the neck and chest prior to surgery - Discussed risks, depending on the extent of disease including CN XI sacrifice and possible flap reconstruction depending on the extent of disease and benefits of surgery, consented - Discussed the need for smoking cessation - Discussed the possibility for radiation post surgery - Will discuss him in tumor board - Will obtain FNA results from OSH - Follow up with Sher on the same day as [facility] appt to go over new CT ? ? ? HPI: Alejo Floyd is a 60 year old male with history of right base of tongue scc, treated with chemoradiation 7000cGy in [address] Carpenter completed in sep 28 2020. Since then he was feeling relatively ok with some neuropathy from chemo side effects. PET scan was done in 12/25/20 showing right level II cervical node that was thought to be reactive. However repeat PET scan on 04/05/21 showed increased size of the level II node on the right side, more consistent with recurrence. Also noted is a new left oropharyngeal FDG uptake. ? Endorses trouble swallowing medications for the last three weeks. Able to tolerate solid foods and liquids. Denies any changes in voice. Endorses dry mouth since radiation. ? REVIEW OF SYSTEMS: General: No weight loss, malaise or fevers. Neurological: +insomnia, on rx Positive for: headaches (rx as needed), peripheral neuropathy (related to chemo) and TIA (hx). Negative for: seizures and strokes. Respiratory: Positive for: COPD (on rx and as needed) and tobacco use (1-2ppd/40 years). Negative for: pneumonia within 6 weeks, URI < 2 weeks and obstructive sleep apnea. Cardiovascular: Positive for: anticoagulation therapy (ASA), arrhythmia (tachycardia), hypertension (on rx) and PVD (revascularization (hx stents LE)) Negative for: atrial fibrillation, CAD, chest pain, CHF, congenital heart defect, DVT/PE, hyperlipidemia, open heart surgery and valve surgery. GI: Positive for: dysphagia (intermittently with solids) and GERD (on rx) Negative for: abdominal pain, hepatitis, irritable bowel syndrome, inflammatory bowel disease, liver (more content not included)... Normal [facility] HISTORY PHYSICAL HNO ID: [id number] Author: Ana Hernandez APRN.SILVINO Service: ? Author Type: Nurse Practitioner Type: HANDP Filed: 06/25/2021 6:49 AM Note Text: HISTORY AND PHYSICAL EXAMINATION SERVICE DATE: 06/11/2021 SERVICE TIME: 1:06 PM PRIMARY CARE PHYSICIAN: Gildardo Lacy MD REASON FOR VISIT: Alejo Floyd is a 60 year old male who is scheduled for Procedure(s): DIAGNOSTIC LARYNGOSCOPY W/ FLEXIBLE FIBEROPTIC SCOPE (N/A) DISSECTION NECK RADICAL (Right) at the request of Dr. Darien Olivarez for consultation. My final recommendation will be communicated back to the requesting physician by way of shared medical record or letter. Subjective The patient has the following: ACTIVE PROBLEM LIST Severe Protein-Calorie Malnutrition (Hcc) Cancer of Base of Tongue (Hcc) COVID-19 Immunization Status Overdue - COVID-19 VACCINE (4 - Booster) Overdue since 05/22/2021 12/20/2020 Imm Admin: COVID-19 vaccine (UNSPECIFIED) 08/01/2020 Imm Admin: COVID-19 vaccine (PFIZER-BIONTECH) 07/11/2020 Imm Admin: COVID-19 vaccine (PFIZER-BIONTECH) Only the first 3 history entries have been loaded, but more history exists. CHIEF COMPLAINT: Pre-op exam HPI: DS is a 60 yo seen for PAC due to scheduled above surgery because of tongue cancer. 06/03/2021 Dr. Olivarez HPI: Alejo Floyd is a 60 year old male with history of right base of tongue scc, treated with chemoradiation 7000cGy in [address] Carpenter completed in sep 28 2020. Since then he was feeling relatively ok with some neuropathy from chemo side effects. PET scan was done in 12/25/20 showing right level II cervical node that was thought to be reactive. However repeat PET scan on 04/05/21 showed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 [place] [address], [facility] MCHC (RBC) [Mass/Vol] 31.6 g/dL Low 32.0-35.0 [facility] Comment on above: Performed By: #### 0 0071, 86130, 76594 #### [facility] [address] MCV (RBC) [Entitic vol] 103.9 fL High 82.0-98.0 [facility] Comment on above: Performed By: #### 0 0071, 52103, 94850 #### [facility] [address] Monocytes (Bld) [#/Vol] 1.7 10*3/uL High 0.1-1.0 [facility] Comment on above: Performed By: #### 0 0071, 18182, 48480 #### [facility] [address] MONOS 19.8 % High 5.0-12.0 [facility] Comment on above: Performed By: #### 0 007, , 96670 #### [facility] [address] Neutrophils/100 WBC (Bld) 63.4 % Normal 40.0-72.0 [facility] Comment on above: Performed By: #### 0 0071, 50061, 05985 #### [facility] [address] Nucleated RBC/100 WBC (Bld) [Ratio] 0 % Normal 0-0 [facility] Comment on above: Performed By: #### 0 0071, 21689, 90687 #### [facility] [address] [place] [address], [facility] PLAT CNT 330 10*3/uL Normal 150-400 [facility] Comment on above: Performed By: #### 0 0071, 82166, 01375 #### [facility] [address] RBC (Bld) [#/Vol] 3.80 10*6/uL Low 4.20-5.70 [facility] Comment on above: Performed By: #### 0 0071, 04689, 29130 #### [facility] [address] [facility] [place] [address], [facility] WBC (Bld) [#/Vol] 8.68 10*3/uL Normal 4.00-10.60 [facility] Comment on above: Performed By: #### 0 0071, 02305, 62447 #### [facility] [address] COMP METABOLIC PANELon 05-28 Albumin [Mass/Vol] 4.1 g/dL Normal 3.5-5.7 [facility] Comment on above: Performed By: #### 1 0070 #### [facility] [address] ALKALINE PHOSPH 95 IU/L Normal 34-104 [facility] Comment on above: Performed By: #### 1 0070 #### [facility] [address] ALT [Catalytic activity/Vol] 14 U/L Normal 7-52 [facility] Comment on above: Performed By: #### 1 0070 #### [facility] [address] [facility]. [address] AST [Catalytic activity/Vol] 15 U/L Normal 13-39 [facility] Comment on above: Performed By: #### 1 0070 #### [facility] [address] Bilirubin [Mass/Vol] 1.0 mg/dL Normal 0.3-1.0 [facility] Comment on above: Performed By: #### 1 0070 #### [facility] [address] [place] [address], [place] Calcium [Mass/Vol] 9.1 mg/dL Normal 8.6-10.3 [facility] Comment on above: Performed By: #### 1 0070 #### [facility] [address] [place] [address], [place] Chloride [Moles/Vol] 102 mmol/L Normal 98-107 [facility] Comment on above: Performed By: #### 1 0070 #### [facility] [address] [place] [address], [place] CO2 [Moles/Vol] 22 mmol/L Normal 21-31 [facility] Comment on above: Performed By: #### 1 0070 #### [facility] [address] [place] [address], [place] Creatinine [Mass/Vol] 1.51 mg/dL High 0.70-1.30 [facility] Comment on above: Performed By: #### 1 0070 #### [facility] [address] [place] [address], [place] eGFR- 57 ml/min/1.73sq m Abnormal >60 [facility] Comment on above: Performed By: #### 1 0070 #### [facility] [address] [place] [address], [place] eGFR- non- 47 ml/min/1.73sq m Abnormal >60 [facility] Comment on above: Performed By: #### 1 0070 #### [facility] [address] [place] [address], [place] Glucose [Mass/Vol] 84 mg/dL Normal 70-100 [facility] Comment on above: Performed By: #### 1 0070 #### [facility] [address] [place] [address], [place] Potassium [Moles/Vol] 3.9 mmol/L Normal 3.5-5.1 [facility] Comment on above: Performed By: #### 1 0070 #### [facility] [address] [place] [address], [facility] Protein [Mass/Vol] 7.2 g/dL Normal 6.0-8.3 [facility] Comment on above: Performed By: #### 1 0070 #### [facility] [address] [place] [address], [facility] Sodium [Moles/Vol] 139 mmol/L Normal 136-145 [facility] Comment on above: Performed By: #### 1 0070 #### [facility] [address] [place] [address], [facility] Urea nitrogen [Mass/Vol] 40 mg/dL High 7-25 [facility] Comment on above: Performed By: #### 1 0070 #### [facility] [address] [place] [address], [facility] LACTATE WITH REFLEXon 2021 Lactate [Moles/Vol] 0.6 mmol/L Normal .5-2.2 [facility] Comment on above: Performed By: #### 3 1414 #### [facility] [address] [place] [address], [facility] MAGNESIUM BLOODon 05-28-2021 Magnesium [Mass/Vol] 2.0 mg/dL Normal 1.9-2.7 [facility] Comment on above: Order Comment: No: D o not add to previous draw Performed By: #### 0 0071, 43351, 45725 #### [facility] [address] [place] [address], [place] PHOSPHORUS BLOODon Phosphate [Mass/Vol] 3.2 mg/dL Normal 2.5-5.0 [facility] Comment on above: Order Comment: No: D o not add to previous draw Performed By: #### 0 0071, 06057, 35833 #### [facility] [address] [place] [address], [facility] POC SARS COV2 ANTIGEN NEGATI VEon 05-28-2021 POC SARS COV2 ANTIGEN NEG Negative Normal NEGATIVE [facility] Comment on above: Result Comment: Nega tive results should be treated as presumptive and confirmation with a molecular assay, if necessary, for patient management, may be performed. Negative results do not rule out SARS-CoV-2 infection and not should be used as the sole basis for treatment or patient management decisions, including infection control decisions. Negative results should be considered in the context of a patient's recent exposures, history, and the presence of clinical signs and symptoms consistent with COVID-19. The Clarity COVID-19 Antigen Rapid Test Cassette is a rapid chromatographic immunoassay intended for the qualitative detection of the nucleocapsid protein antigen from SARS-CoV-2 in direct nasopharyngeal swab (MANUFACTURER'S REPRESENTATIVE) specimens from individuals who are suspected of COVID-19 by their healthcare provider within the first six days of symptom onset. Testing is limited to laboratories certified under the Clinical Laboratory Improvement Amendments of 1988 (CLIA), 42 U.S.C. ???263a, that meet the requirements to perform moderate complexity, high complexity, or waived tests. This test is authorized for use at the Point of Care (POC), i.e., in patient care settings operating under a CLIA Certificate of Waiver, Certificate of Compliance, or Certificate of Accreditation. Performed By: #### 0 0071, 33369, 57866 #### [facility] [address] [facility] [place] [address], [facility] GLUCOSE, BLOOD (POC)on 04-05 Glucose [Mass/Vol] 102 mg/dL Abnormal 74 - 99 mg/dL [facility] Comment on above: Location:[facility], [address] [place] [address] , [place], [place], [address] The Accu-Chek Inform II glucose meter has not been approved for testing on patients receiving intensive medical intervention or therapy and results from this point of care glucose test should not be used for patient management decisions in these cases. Inaccurate results may also occur from other interfering factors, such as N-acetylcysteine (blood concentrations of greater than 5mg/dL), galactose, extremes of hematocrit (<10 or >65), or high doses of ascorbic acid (vitamin C) greater than 3mg/dL. Consider alternate testing mechanisms (e.g. core lab, blood gas instrument) in the above situations. Interpretation and review of laboratory results Abnormal [facility] PET+CT Guidance for localiza tion of tumor of Skull base to mid-thigh-- W [id number] Joanna 04-05-2021 IMPRESSION: 1. HEAD/NECK: New left oral pharyngeal FDG uptake most consistent with neoplasm. Correlate with clinical exam. Increased size and FDG uptake of a right level 2 lymph node consistent with recurrence. 2. CHEST: Stable to improved mildly FDG avid mediastinal lymphadenopathy. 3. ABDOMEN/PELVIS: No FDG avid neoplastic process. 4. EXTREMITIES/SKELETON: No FDG avid neoplastic process. Transcribe Date/Time: Apr 05 2021 11:41A Dictated by: LEIDY PEREZ MD This examination was interpreted and the report reviewed and electronically signed by: DORA GANDHI MD on Apr 05 2021 12:29PM EST Thank you for allowing us to participate in the care of your patient. Should there be any questions regarding this interpretation, please call [phone]. If you are unable to reach us at the number above, please feel free to contact [facility]iology at [phone]. 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 Free breathing low dose CT was performed without contrast for attenuation correction and anatomic localization. FDG radionuclide dose: 10.[address] Dose-Length Product (DLP): 224 mGy*cm CT Dose Reduction Employed: Automated exposure control (AEC) COMPARISON: PET/CT 12/25/2020 and 08/10/2020 CORRELATION: None. RESULT: REFERENCE: Mediastinal blood pool: Max SUV 1.6 Liver: Max SUV 3.7 Greeter (topogram) images: No additional findings. HEAD AND NECK: Mass: New FDG uptake in the left oropharynx posterior to the glossotonsillar sulcus associated with an approximately 0.9 cm soft tissue nodule in a max SUV of 5.5 (100). Lymph Nodes: Interval enlargement and increased FDG uptake within a right level 2b lymph node measuring 1.7 x 1.3 cm, previously 1.2 x 0.8 cm, with a max SUV of 8.9 (112), previously max SUV of 2.9. Calcified level 2a lymph node. Otherwise physiologic uptake seen in the visualized brain, parapharyngeal soft tissues, vocal cords, and salivary glands. Thyroid: No FDG avid thyroid lesion. Atherosclerotic calcifications. CHEST: Physiologic uptake in the heart and mediastinum. Lines, tubes, and devices: None. Lungs and tracheobronchial tree: No FDG avid consolidation, mass or nodules. Severe bilateral emphysematous changes. Resolved right lower lung opacity. Pleura: No FDG avid pleural effusion or pleural mass. Mediastinum and Lymph nodes: Mildly FDG avid lymphadenopathy as follows: * Unchanged 0.9 cm right paratracheal node with max SUV of 3.4 (35), previous max SUV of 3.4 * Unchanged size of a 0.9 cm subcarinal node with interval decreased FDG uptake to a maximum SUV of 2.7 (63), previously max SUV of 5.0 Heart and great vessels: Normal aortic course and caliber. Physiologic blood pool activity. No FDG avid pericardial effusion. Chest wall and axilla: Unremarkable ABDOMEN AND PELVIS: Physiologic uptake seen in the and GI tracts. Liver: No FDG avid mass. Normal morphology. Biliary: Cholecystectomy. Spleen: Splenectomy with residual splenule Pancreas: No FDG avid mass or pancreas duct dilation. Adrenals: No FDG avid lesion.. Kidneys: Excreted activity limits evaluation of the kidneys and collecting system. No stones, hydronephrosis, or FDG avid lesions. Left kidney cyst. GI tract: No FDG avid lesions. No bowel dilation or wall thickening. There is diverticulosis. No changes of diverticulitis. Lymph nodes: No abdominal or pelvic FDG avid lymphadenopathy. Mesentery/Peritoneum: No ascites or FDG avid mass. Retroperitoneum: No mass. Vasculature: Vascular patency cannot be assessed due to lack of IV contrast. There are atherosclerotic calcifications without aneurysmal dilation. Pelvis: No FDG avid mass or ascites. Excreted activity limites evaluation of bladder. Abdominopelvic wall: Anterior abdominal wall hernia containing nonobstructed small and large bowel. BONES AND EXTREMITIES: No suspicious FDG avid foci are detected. Degenerative changes. Unchanged anterior wedging of the L1 vertebral body. 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 Free breathing low dose CT was performed without contrast for attenuation correction and anatomic localization. FDG radionuclide dose: 10.[address] Dose-Length Product (DLP): 224 mGy*cm CT Dose Reduction Employed: Automated exposure control (AEC) COMPARISON: PET/CT 12/25/2020 and 08/10/2020 CORRELATION: None. RESULT: REFERENCE: Mediastinal blood pool: Max SUV 1.6 Liver: Max SUV 3.7 Greeter (topogram) images: No additional findings. HEAD AND NECK: Mass: New FDG uptake in the left oropharynx posterior to the glossotonsillar sulcus associated with an approximately 0.9 cm soft tissue nodule in a max SUV of 5.5 (100). Lymph Nodes: Interval enlargement and increased FDG uptake within a right level 2b lymph node measuring 1.7 x 1.3 cm, previously 1.2 x 0.8 cm, with a max SUV of 8.9 (112), previously max SUV of 2.9. Calcified level 2a lymph node. Otherwise physiologic uptake seen in the visualized brain, parapharyngeal soft tissues, vocal cords, and salivary glands. Thyroid: No FDG avid thyroid lesion. Atherosclerotic calcifications. CHEST: Physiologic uptake in the heart and mediastinum. Lines, tubes, and devices: None. Lungs and tracheobronchial tree: No FDG avid consolidation, mass or nodules. Severe bilateral emphysematous changes. Resolved right lower lung opacity. Pleura: No FDG avid pleural effusion or pleural mass. Mediastinum and Lymph nodes: Mildly FDG avid lymphadenopathy as follows: * Unchanged 0.9 cm right paratracheal node with max SUV of 3.4 (35), previous max SUV of 3.4 * Unchanged size of a 0.9 cm subcarinal node with interval decreased FDG uptake to a maximum SUV of 2.7 (63), previously max SUV of 5.0 Heart and great vessels: Normal aortic course and caliber. Physiologic blood pool activity. No FDG avid pericardial effusion. Chest wall and axilla: Unremarkable ABDOMEN AND PELVIS: Physiologic uptake seen in the and GI tracts. Liver: No FDG avid mass. Normal morphology. Biliary: Cholecystectomy. Spleen: Splenectomy with residual splenule Pancreas: No FDG avid mass or pancreas duct dilation. Adrenals: No FDG avid lesion.. Kidneys: Excreted activity limits evaluation of the kidneys and collecting system. No stones, hydronephrosis, or FDG avid lesions. Left kidney cyst. GI tract: No FDG avid lesions. No bowel dilation or wall thickening. There is diverticulosis. No changes of diverticulitis. Lymph nodes: No abdominal or pelvic FDG avid lymphadenopathy. Mesentery/Peritoneum: No ascites or FDG avid mass. Retroperitoneum: No mass. Vasculature: Vascular patency cannot be assessed due to lack of IV contrast. There are atherosclerotic calcifications without aneurysmal dilation. Pelvis: No FDG avid mass or ascites. Excreted activity limites evaluation of bladder. Abdominopelvic wall: Anterior abdominal wall hernia containing nonobstructed small and large bowel. BONES AND EXTREMITIES: No suspicious FDG avid foci are detected. Degenerative changes. Unchanged anterior wedging of the L1 vertebral body. IMPRESSION IMPRESSION: 1. HEAD/NECK: New left oral pharyngeal FDG uptake most consistent with neoplasm. Correlate with clinical exam. Increased size and FDG uptake of a right level 2 lymph node consistent with recurrence. 2. CHEST: Stable to improved mildly FDG avid mediastinal lymphadenopathy. 3. ABDOMEN/PELVIS: No FDG avid neoplastic process. 4. EXTREMITIES/SKELETON: No FDG avid neoplastic process. Transcribe Date/Time: Apr 05 2021 11:41A Dictated by: LEIDY PEREZ MD This examination was interpreted and the report reviewed and electronically signed by: DORA GANDHI MD on Apr 05 2021 12:29PM EST Thank you for allowing us to participate in the care of your patient. Should there be any questions regarding this interpretation, please call [phone]. If you are unable to reach us at the number above, please feel free to contact [facility] eRadiology at [phone]. [facility] Radiology Study observation (narrative) [facility] PET+CT Guidance for localiza tion of tumor of Skull base to mid-thigh-- W 18F-FDG IVOrdered By: [facility] Provider on 04-05-2021 [facility] Basic Metabolic,Non-Fastingo n 03-08-2018 Creatinine mass conc 0.98 mg/dL Normal 0.70-1.30 [place] Comment on above: Order Comment: Is Pa tient Fasting? Yes Performed By: #### L 400.0152, L400.2200, L400.5100 ####Main Laboratory ([facility])[address], [place] [phone] Nivar, MD GFR/1.73 sq M predicted among non-blacks MDRD vol rate/area (S/P/Bld) mL/min/{1.73_m2} Normal [place] Comment on above: Order Comment: Is Pa tient Fasting? Yes Result Comment: Water Quality Manager usha Kidney Disease stages by NKDFStage eGFR I >90 II 60-89 III 30-59 IV 15-29 V <15 or dialysisAGE(years) AVERAGE GFR 50-59 93 ml/min/1.73 square metersNote:This result is normalized to 1.73 square meter body surface area. Height and weight are not factored. Performed By: #### L 400.0152, L400.2200, L400.5100 ####[facility] ([facility])[address], [place] [phone] Nivar, MD Anion gap 3 molar conc 8 mmol/L Normal 4-12 [place] Comment on above: Order Comment: Is Pa tient Fasting? Yes Performed By: #### L 400.0152, L400.2200, L400.5100 ####[facility] ([facility])[address] [phone] Nivar, MD Calcium mass conc 8.8 mg/dL Normal 8.8-10.5 [place] Comment on above: Order Comment: Is Pa tient Fasting? Yes Performed By: #### L 400.0152, L400.2200, L400.5100 ####[facility] ([facility])[address], [place] [phone] Nivar, MD Chloride molar conc 103 mmol/L Normal 101-111 [place] Comment on above: Order Comment: Is Pa tient Fasting? Yes Performed By: #### L 400.0152, L400.2200, L400.5100 ####[facility] ([facility])[address] [phone] Nivar, MD CO2 molar conc 22 mmol/L Normal 21-32 [place] Comment on above: Order Comment: Is Pa tient Fasting? Yes Performed By: #### L 400.0152, L400.2200, L400.5100 ####[facility] ([facility])[address], [place] [phone] Nivar, MD Glucose mass conc 106 mg/dL Normal 70-110 [place] Comment on above: Order Comment: Is Pa tient Fasting? Yes Result Comment: *Thi s reference range applies to fasting specimens only. Performed By: #### L 400.0152, L400.2200, L400.5100 ####[facility] ([facility])[address] [phone] Nivar, MD Potassium molar conc 4.4 mmol/L Normal 3.6-5.0 [place] Comment on above: Order Comment: Is Pa tient Fasting? Yes Performed By: #### L 400.0152, L400.2200, L400.5100 ####[facility] ([facility])[address], [place] [phone] Nivar, MD Sodium molar conc 133 mmol/L Low 135-145 [place] Comment on above: Order Comment: Is Pa tient Fasting? Yes Performed By: #### L 400.0152, L400.2200, L400.5100 ####[facility] ([facility])[address], [place] [phone] Nivar, MD Urea nitrogen mass conc 17 mg/dL Normal 7-20 [place] Comment on above: Order Comment: Is Pa tient Fasting? Yes Performed By: #### L 400.0152, L400.2200, L400.5100 ####[facility] ([facility])[address] [phone] Nivar, MD CBC with Differentialon 11-0 Abs Baso Count 0 /cmm Normal 0-200 [place] Comment on above: Performed By: #### L 400.0152, L400.2200, L400.5100 ####[facility] ([facility])[address], [place] [phone] Nivar, MD Abs Eos Count 200 /cmm Normal 0-500 [place] Comment on above: Performed By: #### L 400.0152, L400.2200, L400.5100 ####[facility] ([facility])[address] [phone] Nivar, MD Abs [place] Count 1000 /cmm High 0-800 [place] Comment on above: Performed By: #### L 400.0152, L400.2200, L400.5100 ####[facility] ([facility])[address] [phone] Nivar, MD Abs Neut Count 5000 /cmm Normal 0250-3337 [place] Comment on above: Performed By: #### L 400.0152, L400.2200, L400.5100 ####[facility] ([facility])[address] [phone] Nivar, MD Basophils Auto #/vol (Bld) 0.5 % Normal 0-2 [place] Comment on above: Performed By: #### L 400.0152, L400.2200, L400.5100 ####[facility] ([facility])[address] [phone] Nivar, MD EOS-Auto Diff 2.2 % Normal 0-6 [place] Comment on above: Performed By: #### L 400.0152, L400.2200, L400.5100 ####[facility] ([facility])[address] [phone] Nivar, MD Erythrocyte distribution width Auto Ratio (RBC) 17.7 % High 12.0-16.0 [place] Comment on above: Performed By: #### L 400.0152, L400.2200, L400.5100 ####[facility] ([facility])[address] [phone] Nivar, MD Hematocrit Auto Volume Fraction (Bld) 27.2 % Low 40.0-49.0 [place] Comment on above: Performed By: #### L 400.0152, L400.2200, L400.5100 ####[facility] ([facility])[address] [phone] Nivar, MD Hemoglobin mass conc (Bld) 8.9 g/dL Low 13.5-16.5 [place] Comment on above: Performed By: #### L 400.0152, L400.2200, L400.5100 ####[facility] ([facility])[address], [place] [phone] Nivar, MD Lymphocytes Auto #/vol (Bld) 2100 /cmm Normal 3792-9897 [place] Comment on above: Performed By: #### L 400.0152, L400.2200, L400.5100 ####[facility] ([facility])[address] [place] [phone] Nivar, MD Lymphocytes/100 WBC Auto (Bld) 25.7 % Normal 15-45 [place] Comment on above: Performed By: #### L 400.0152, L400.2200, L400.5100 ####[facility] ([facility])[address], [place] [phone] Nivar, MD MCH Auto Entitic mass (RBC) 30.0 pg Normal 27.5-33.0 [place] Comment on above: Performed By: #### L 400.0152, L400.2200, L400.5100 ####[facility] ([facility])[address] [place] [phone] Nivar, MD MCHC Auto mass conc (RBC) 32.6 g/dL Low 33.0-36.0 [place] Comment on above: Performed By: #### L 400.0152, L400.2200, L400.5100 ####[facility] ([facility])[address], [place] [phone] Nivar, MD MCV Auto Entitic volume (RBC) 92.2 CU SOPHIE Normal 80-97 [place] Comment on above: Performed By: #### L 400.0152, L400.2200, L400.5100 ####[facility] ([facility])[address], [place] [phone] Nivar, MD [place]- Auto Diff 11.6 % High 2-10 [place] Comment on above: Performed By: #### L 400.0152, L400.2200, L400.5100 ####[facility] ([facility])[address], [place] [phone] Nivar, MD Neut-Auto Diff 60.0 % Normal 40-70 [place] Comment on above: Performed By: #### L 400.0152, L400.2200, L400.5100 ####[facility] ([facility])[address], [place] [phone] Nivar, MD NRBC-Auto 0.1 /100 WBC Normal <1 [place] Comment on above: Performed By: #### L 400.0152, L400.2200, L400.5100 ####[facility] ([facility])[address], [place] [phone] Nivar, MD Platelets Auto #/vol (Bld) 444 th/cmm High 150-400 [place] Comment on above: Performed By: #### L 400.0152, L400.2200, L400.5100 ####[facility] ([facility])[address], [place] [phone] Nivar, MD RBC Auto #/vol (Bld) 2.95 mil/cmm Low 4.50-6.00 [facility] Comment on above: Performed By: #### L 400.0152, L400.2200, L400.5100 ####[facility] ([facility])[address], [place] [phone] Nivar, MD WBC Auto #/vol (Bld) 8.4 th/cmm Normal 4.4-10.5 [place] Comment on above: Performed By: #### L 400.0152, L400.2200, L400.5100 ####[facility] ([facility])[address], [place] [phone] Nivar, MD Magnesiumon 03-08-2018 Magnesium mass conc 1.7 mg/dL Low 1.8-2.5 [place] Comment on above: Order Comment: Is Pa tient Fasting? Yes Performed By: #### L 400.0152, L400.2200, L400.5100 ####[facility] ([facility])[address] [phone] Nivar, MD Prealbuminon 03-08-2018 Prealbumin mass conc 19.5 mg/dL Normal 16.0-38.0 [place] Comment on above: Order Comment: Is Pa tient Fasting? Yes Performed By: #### L 400.0152, L400.2200, L400.5100 ####[facility] ([facility])[address] [phone] Nivar, MD Triglycerideson 03-08-2018 Triglyceride mass conc 96 mg/dL Normal <150 [place] Comment on above: Order Comment: Is Pa tient Fasting? Yes Performed By: #### L 400.0152, L400.2200, L400.5100 ####[facility] ([facility])[address] [phone] Nivar, MD Basic Metabolic,Non-Fastingo n 03-07-2018 Anion gap 3 molar conc 7 mmol/L Normal 4-12 [place] Comment on above: Performed By: #### L 400.0152, L400.2200, L400.5100 ####[facility] ([facility])[address], [place] [phone] Nivar, MD Calcium mass conc 8.5 mg/dL Low 8.8-10.5 [place] Comment on above: Performed By: #### L 400.0152, L400.2200, L400.5100 ####[facility] ([facility])[address] [place] [phone] Nivar, MD Chloride molar conc 101 mmol/L Normal 101-111 [place] Comment on above: Performed By: #### L 400.0152, L400.2200, L400.5100 ####[facility] ([facility])[address] [place] [phone] Nivar, MD CO2 molar conc 23 mmol/L Normal 21-32 [place] Comment on above: Performed By: #### L 400.0152, L400.2200, L400.5100 ####[facility] ([facility])[address] [place] [phone] Nivar, MD Creatinine mass conc 0.86 mg/dL Normal 0.70-1.30 [place] Comment on above: Performed By: #### L 400.0152, L400.2200, L400.5100 ####[facility] ([facility])[address] [place] [phone] Nivar, MD GFR/1.73 sq M predicted among non-blacks MDRD vol rate/area (S/P/Bld) mL/min/{1.73_m2} Normal [place] Comment on above: Result Comment: Water Quality Manager usha Kidney Disease stages by NKDFStage eGFR I >90 II 60-89 III 30-59 IV 15-29 V <15 or dialysisAGE(years) AVERAGE GFR 50-59 93 ml/min/1.73 square metersNote:This result is normalized to 1.73 square meter body surface area. Height and weight are not factored. Performed By: #### L 400.0152, L400.2200, L400.5100 ####[facility] ([facility])[address] [phone] Nivar, MD Glucose mass conc 104 mg/dL Normal 70-110 [place] Comment on above: Result Comment: *Thi s reference range applies to fasting specimens only. Performed By: #### L 400.0152, L400.2200, L400.5100 ####[facility] ([facility])[address] [place] [phone] Nivar, MD Potassium molar conc 4.2 mmol/L Normal 3.6-5.0 [place] Comment on above: Performed By: #### L 400.0152, L400.2200, L400.5100 ####[facility] ([facility])[address] [place] [phone] Nivar, MD Sodium molar conc 131 mmol/L Low 135-145 [place] Comment on above: Performed By: #### L 400.0152, L400.2200, L400.5100 ####[facility] ([facility])[address] [place] [phone] Nivar, MD Urea nitrogen mass conc 16 mg/dL Normal 7-20 [place] Comment on above: Performed By: #### L 400.0152, L400.2200, L400.5100 ####[facility] ([facility])[address], [place] [phone] Nivar, MD Magnesiumon 03-07-2018 Magnesium mass conc 1.7 mg/dL Low 1.8-2.5 [place] Comment on above: Performed By: #### L 400.0152, L400.2200, L400.5100 ####[facility] ([facility])[address] [place] [phone] Nivar, MD Basic Metabolic,Non-Fastingo n 03-06-2018 Anion gap 3 molar conc 9 mmol/L Normal 4-12 [place] Comment on above: Performed By: #### L 400.0202, L400.0302, L400.2200, L400.2500, L400.5100, L404.6500 ####[facility] ([facility])[address], [place] [phone] Nivar, MD Calcium mass conc 8.5 mg/dL Low 8.8-10.5 [place] Comment on above: Performed By: #### L 400.0202, L400.0302, L400.2200, L400.2500, L400.5100, L404.6500 ####[facility] ([facility])[address], [place] [phone] Nivar, MD Chloride molar conc 99 mmol/L Low 101-111 [place] Comment on above: Performed By: #### L 400.0202, L400.0302, L400.2200, L400.2500, L400.5100, L404.6500 ####[facility] ([facility])[address] [place], [place] [phone] Nivar, MD CO2 molar conc 23 mmol/L Normal 21-32 [place] Comment on above: Performed By: #### L 400.0202, L400.0302, L400.2200, L400.2500, L400.5100, L404.6500 ####[facility] ([facility])[address], [place] [phone] Nivar, MD Creatinine mass conc 0.96 mg/dL Normal 0.70-1.30 [place] Comment on above: Performed By: #### L 400.0202, L400.0302, L400.2200, L400.2500, L400.5100, L404.6500 ####[facility] ([facility])[address] [phone] Nivar, MD GFR/1.73 sq M predicted among non-blacks MDRD vol rate/area (S/P/Bld) mL/min/{1.73_m2} Normal [place] Comment on above: Result Comment: [facility] usha Kidney Disease stages by NKDFStage eGFR I >90 II 60-89 III 30-59 IV 15-29 V <15 or dialysisAGE(years) AVERAGE GFR 50-59 93 ml/min/1.73 square metersNote:This result is normalized to 1.73 square meter body surface area. Height and weight are not factored. Performed By: #### L 400.0202, L400.0302, L400.2200, L400.2500, L400.5100, L404.6500 ####[facility] ([facility])[address], [place] [phone] Nivar, MD Glucose mass conc 97 mg/dL Normal 70-110 [place] Comment on above: Result Comment: *Thi s reference range applies to fasting specimens only. Performed By: #### L 400.0202, L400.0302, L400.2200, L400.2500, L400.5100, L404.6500 ####[facility] ([facility])[address], [place] [phone] Nivar, MD Potassium molar conc 4.0 mmol/L Normal 3.6-5.0 [place] Comment on above: Performed By: #### L 400.0202, L400.0302, L400.2200, L400.2500, L400.5100, L404.6500 ####[facility] ([facility])[address], [place] [phone] Nivar, MD Sodium molar conc 131 mmol/L Low 135-145 [place] Comment on above: Performed By: #### L 400.0202, L400.0302, L400.2200, L400.2500, L400.5100, L404.6500 ####[facility] ([facility])[address] [place] [phone] Nivar, MD Urea nitrogen mass conc 18 mg/dL Normal 7-20 [place] Comment on above: Performed By: #### L 400.0202, L400.0302, L400.2200, L400.2500, L400.5100, L404.6500 ####[facility] ([facility])[address] [place] [phone] Nivar, MD Magnesiumon 03-06-2018 Magnesium mass conc 1.7 mg/dL Low 1.8-2.5 [place] Comment on above: Performed By: #### L 400.0202, L400.0302, L400.2200, L400.2500, L400.5100, L404.6500 ####[facility] ([facility])[address] [place], [place] [phone] Nivar, MD Basic Metabolic,Non-Fastingo n 03-05-2018 Anion gap 3 molar conc 7 mmol/L Normal 4-12 [place] Comment on above: Performed By: #### L 400.0202, L400.0302, L400.2200, L400.2500, L400.5100, L404.6500 ####[facility] ([facility])[address], [place] [phone] Nivar, MD Calcium mass conc 8.9 mg/dL Normal 8.8-10.5 [place] Comment on above: Performed By: #### L 400.0202, L400.0302, L400.2200, L400.2500, L400.5100, L404.6500 ####[facility] ([facility])[address] [phone] Nivar, MD Chloride molar conc 101 mmol/L Normal 101-111 [place] Comment on above: Performed By: #### L 400.0202, L400.0302, L400.2200, L400.2500, L400.5100, L404.6500 ####[facility] ([facility])[address] [phone] Nivar, MD CO2 molar conc 24 mmol/L Normal 21-32 [place] Comment on above: Performed By: #### L 400.0202, L400.0302, L400.2200, L400.2500, L400.5100, L404.6500 ####[facility] ([facility])[address] [place] [phone] Nivar, MD Creatinine mass conc 1.00 mg/dL Normal 0.70-1.30 [place] Comment on above: Performed By: #### L 400.0202, L400.0302, L400.2200, L400.2500, L400.5100, L404.6500 ####[facility] ([facility])[address] [phone] Nivar, MD GFR/1.73 sq M predicted among non-blacks MDRD vol rate/area (S/P/Bld) mL/min/{1.73_m2} Normal [place] Comment on above: Result Comment: Water Quality Manager usha Kidney Disease stages by NKDFStage eGFR I >90 II 60-89 III 30-59 IV 15-29 V <15 or dialysisAGE(years) AVERAGE GFR 50-59 93 ml/min/1.73 square metersNote:This result is normalized to 1.73 square meter body surface area. Height and weight are not factored. Performed By: #### L 400.0202, L400.0302, L400.2200, L400.2500, L400.5100, L404.6500 ####[facility] ([facility])[address] [place] [phone] Nivar, MD Glucose mass conc 94 mg/dL Normal 70-110 [place] Comment on above: Result Comment: *Thi s reference range applies to fasting specimens only. Performed By: #### L 400.0202, L400.0302, L400.2200, L400.2500, L400.5100, L404.6500 ####[facility] ([facility])[address] [place] [phone] Nivar, MD Potassium molar conc 4.2 mmol/L Normal 3.6-5.0 [place] Comment on above: Performed By: #### L 400.0202, L400.0302, L400.2200, L400.2500, L400.5100, L404.6500 ####[facility] ([facility])[address] [place] [phone] Nivar, MD Sodium molar conc 132 mmol/L Low 135-145 [place] Comment on above: Performed By: #### L 400.0202, L400.0302, L400.2200, L400.2500, L400.5100, L404.6500 ####[facility] ([facility])[address] [place] [phone] Nivar, MD Urea nitrogen mass conc 18 mg/dL Normal 7-20 [place] Comment on above: Performed By: #### L 400.0202, L400.0302, L400.2200, L400.2500, L400.5100, L404.6500 ####[facility] ([facility])[address] [place] [phone] Nivar, MD Magnesiumon 03-05-2018 Magnesium mass conc 1.7 mg/dL Low 1.8-2.5 [place] Comment on above: Performed By: #### L 400.0202, L400.0302, L400.2200, L400.2500, L400.5100, L404.6500 ####[facility] ([facility])[address] [place] [phone] Nivar, MD Basic Metabolic,Non-Fastingo n 03-04-2018 Anion gap 3 molar conc 8 mmol/L Normal 4-12 [place] Comment on above: Performed By: #### L 400.0202, L400.0302, L400.2200, L400.2500, L400.5100, L404.6500 ####[facility] ([facility])[address] [place] [phone] Nivar, MD Calcium mass conc 8.6 mg/dL Low 8.8-10.5 [place] Comment on above: Performed By: #### L 400.0202, L400.0302, L400.2200, L400.2500, L400.5100, L404.6500 ####[facility] ([facility])[address] [place] [phone] Nivar, MD Chloride molar conc 102 mmol/L Normal 101-111 [place] Comment on above: Performed By: #### L 400.0202, L400.0302, L400.2200, L400.2500, L400.5100, L404.6500 ####[facility] ([facility])[address] [place] [phone] Nivar, MD CO2 molar conc 21 mmol/L Normal 21-32 [place] Comment on above: Performed By: #### L 400.0202, L400.0302, L400.2200, L400.2500, L400.5100, L404.6500 ####[facility] ([facility])[address] [phone] Nivar, MD Creatinine mass conc 0.98 mg/dL Normal 0.70-1.30 [place] Comment on above: Performed By: #### L 400.0202, L400.0302, L400.2200, L400.2500, L400.5100, L404.6500 ####[facility] ([facility])[address], [place] [phone] Nivar, MD GFR/1.73 sq M predicted among non-blacks MDRD vol rate/area (S/P/Bld) mL/min/{1.73_m2} Normal [place] Comment on above: Result Comment: Water Quality Manager usha Kidney Disease stages by NKDFStage eGFR I >90 II 60-89 III 30-59 IV 15-29 V <15 or dialysisAGE(years) AVERAGE GFR 50-59 93 ml/min/1.73 square metersNote:This result is normalized to 1.73 square meter body surface area. Height and weight are not factored. Performed By: #### L 400.0202, L400.0302, L400.2200, L400.2500, L400.5100, L404.6500 ####[facility] ([facility])[address] [place], [place] [phone] Nivar, MD Glucose mass conc 103 mg/dL Normal 70-110 [place] Comment on above: Result Comment: *Thi s reference range applies to fasting specimens only. Performed By: #### L 400.0202, L400.0302, L400.2200, L400.2500, L400.5100, L404.6500 ####[facility] ([facility])[address] [place] [phone] Nivar, MD Potassium molar conc 4.2 mmol/L Normal 3.6-5.0 [place] Comment on above: Performed By: #### L 400.0202, L400.0302, L400.2200, L400.2500, L400.5100, L404.6500 ####[facility] ([facility])[address] [place] [phone] Nivar, MD Sodium molar conc 131 mmol/L Low 135-145 [place] Comment on above: Performed By: #### L 400.0202, L400.0302, L400.2200, L400.2500, L400.5100, L404.6500 ####[facility] ([facility])[address] [place] [phone] Nivar, MD Urea nitrogen mass conc 16 mg/dL Normal 7-20 [place] Comment on above: Performed By: #### L 400.0202, L400.0302, L400.2200, L400.2500, L400.5100, L404.6500 ####[facility] ([facility])[address] [place] [phone] Nivar, MD Magnesiumon 03-04-2018 Magnesium mass conc 1.8 mg/dL Normal 1.8-2.5 [place] Comment on above: Performed By: #### L 400.0202, L400.0302, L400.2200, L400.2500, L400.5100, L404.6500 ####[facility] ([facility])[address] [place] [phone] Nivar, MD Phosphoruson 03-04-2018 Phosphate mass conc 4.2 mg/dL Normal 2.4-4.7 [place] Comment on above: Performed By: #### L 400.0202, L400.0302, L400.2200, L400.2500, L400.5100, L404.6500 ####[facility] ([facility])[address] [place] [phone] Nivar, MD Basic Metabolic,Non-Fastingo n 03-03-2018 Anion gap 3 molar conc 7 mmol/L Normal 4-12 [place] Comment on above: Performed By: #### L 400.0202, L400.0302, L400.2200, L400.2500, L400.5100, L404.6500 ####[facility] ([facility])[address], [place] [phone] Nivar, MD Calcium mass conc 8.6 mg/dL Low 8.8-10.5 [place] Comment on above: Performed By: #### L 400.0202, L400.0302, L400.2200, L400.2500, L400.5100, L404.6500 ####Main Laboratory ([facility])[address], [place] [phone] Nivar, MD Chloride molar conc 103 mmol/L Normal 101-111 [place] Comment on above: Performed By: #### L 400.0202, L400.0302, L400.2200, L400.2500, L400.5100, L404.6500 ####[facility] ([facility])[address], [place] [phone] Nivar, MD CO2 molar conc 23 mmol/L Normal 21-32 [place] Comment on above: Performed By: #### L 400.0202, L400.0302, L400.2200, L400.2500, L400.5100, L404.6500 ####[facility] ([facility])[address], [place] [phone] Nivar, MD Creatinine mass conc 1.00 mg/dL Normal 0.70-1.30 [place] Comment on above: Performed By: #### L 400.0202, L400.0302, L400.2200, L400.2500, L400.5100, L404.6500 ####[facility] Laboratory ([facility])[address], [place] [phone] Nivar, MD GFR/1.73 sq M predicted among non-blacks MDRD vol rate/area (S/P/Bld) mL/min/{1.73_m2} Normal [place] Comment on above: Result Comment: Water Quality Manager usha Kidney Disease stages by NKDFStage eGFR I >90 II 60-89 III 30-59 IV 15-29 V <15 or dialysisAGE(years) AVERAGE GFR 50-59 93 ml/min/1.73 square metersNote:This result is normalized to 1.73 square meter body surface area. Height and weight are not factored. Performed By: #### L 400.0202, L400.0302, L400.2200, L400.2500, L400.5100, L404.6500 ####Main Laboratory ([facility])[address] [place], [place] [phone] Nivar, MD Glucose mass conc 104 mg/dL Normal 70-110 [place] Comment on above: Result Comment: *Thi s reference range applies to fasting specimens only. Performed By: #### L 400.0202, L400.0302, L400.2200, L400.2500, L400.5100, L404.6500 ####[facility] ([facility])[address], [place] [phone] Nivar, MD Potassium molar conc 4.1 mmol/L Normal 3.6-5.0 [place] Comment on above: Performed By: #### L 400.0202, L400.0302, L400.2200, L400.2500, L400.5100, L404.6500 ####[facility] ([facility])[address], [place] [phone] Nivar, MD Sodium molar conc 133 mmol/L Low 135-145 [place] Comment on above: Performed By: #### L 400.0202, L400.0302, L400.2200, L400.2500, L400.5100, L404.6500 ####[facility] ([facility])[address] [place] [phone] Nivar, MD Urea nitrogen mass conc 20 mg/dL Normal 7-20 [place] Comment on above: Performed By: #### L 400.0202, L400.0302, L400.2200, L400.2500, L400.5100, L404.6500 ####[facility] ([facility])[address], [place] [phone] Nivar, MD Magnesiumon 03-03-2018 Magnesium mass conc 1.8 mg/dL Normal 1.8-2.5 [place] Comment on above: Performed By: #### L 400.0202, L400.0302, L400.2200, L400.2500, L400.5100, L404.6500 ####[facility] ([facility])[address], [place] [phone] Nivar, MD Basic Metabolic,Non-Fastingo n 03-02-2018 Anion gap 3 molar conc 7 mmol/L Normal 4-12 [place] Comment on above: Performed By: #### L 400.0202, L400.0302, L400.2200, L400.2500, L400.5100, L404.6500 ####[facility] ([facility])[address], [place] [phone] Nivar, MD Calcium mass conc 8.4 mg/dL Low 8.8-10.5 [place] Comment on above: Performed By: #### L 400.0202, L400.0302, L400.2200, L400.2500, L400.5100, L404.6500 ####[facility] ([facility])[address] [place] [phone] Nivar, MD Chloride molar conc 104 mmol/L Normal 101-111 [place] Comment on above: Performed By: #### L 400.0202, L400.0302, L400.2200, L400.2500, L400.5100, L404.6500 ####[facility] ([facility])[address], [place] [phone] Nivar, MD CO2 molar conc 21 mmol/L Normal 21-32 [place] Comment on above: Performed By: #### L 400.0202, L400.0302, L400.2200, L400.2500, L400.5100, L404.6500 ####[facility] ([facility])[address], [place] [phone] Nivar, MD Creatinine mass conc 1.07 mg/dL Normal 0.70-1.30 [place] Comment on above: Performed By: #### L 400.0202, L400.0302, L400.2200, L400.2500, L400.5100, L404.6500 ####[facility] ([facility])[address], [place] [phone] Nivar, MD GFR/1.73 sq M predicted among non-blacks MDRD vol rate/area (S/P/Bld) mL/min/{1.73_m2} Normal [place] Comment on above: Result Comment: Water Quality Manager usha Kidney Disease stages by NKDFStage eGFR I >90 II 60-89 III 30-59 IV 15-29 V <15 or dialysisAGE(years) AVERAGE GFR 50-59 93 ml/min/1.73 square metersNote:This result is normalized to 1.73 square meter body surface area. Height and weight are not factored. Performed By: #### L 400.0202, L400.0302, L400.2200, L400.2500, L400.5100, L404.6500 ####[facility] ([facility])[address] [place] [phone] Nivar, MD Glucose mass conc 100 mg/dL Normal 70-110 [place] Comment on above: Result Comment: *Thi s reference range applies to fasting specimens only. Performed By: #### L 400.0202, L400.0302, L400.2200, L400.2500, L400.5100, L404.6500 ####[facility] ([facility])[address], [place] [phone] Nivar, MD Potassium molar conc 3.9 mmol/L Normal 3.6-5.0 [place] Comment on above: Performed By: #### L 400.0202, L400.0302, L400.2200, L400.2500, L400.5100, L404.6500 ####[facility] ([facility])[address], [place] [phone] Nivar, MD Sodium molar conc 132 mmol/L Low 135-145 [place] Comment on above: Performed By: #### L 400.0202, L400.0302, L400.2200, L400.2500, L400.5100, L404.6500 ####[facility] ([facility])[address] [place] [phone] Nivar, MD Urea nitrogen mass conc 20 mg/dL Normal 7-20 [place] Comment on above: Performed By: #### L 400.0202, L400.0302, L400.2200, L400.2500, L400.5100, L404.6500 ####[facility] ([facility])[address] [place] [phone] Nivar, MD Magnesiumon 03-02-2018 Magnesium mass conc 1.7 mg/dL Low 1.8-2.5 [place] Comment on above: Performed By: #### L 400.0202, L400.0302, L400.2200, L400.2500, L400.5100, L404.6500 ####[facility] ([facility])[address] [place] [phone] Nivar, MD Basic Metabolic,Non-Fastingo n 03-01-2018 Anion gap 3 molar conc 7 mmol/L Normal 4-12 [place] Comment on above: Performed By: #### L 400.0202, L400.0302, L400.2200, L400.2500, L400.5100, L404.6500 ####[facility] ([facility])[address] [place] [phone] Nivar, MD Calcium mass conc 8.4 mg/dL Low 8.8-10.5 [place] Comment on above: Performed By: #### L 400.0202, L400.0302, L400.2200, L400.2500, L400.5100, L404.6500 ####[facility] ([facility])[address], [place] [phone] Nivar, MD Chloride molar conc 104 mmol/L Normal 101-111 [place] Comment on above: Performed By: #### L 400.0202, L400.0302, L400.2200, L400.2500, L400.5100, L404.6500 ####[facility] ([facility])[address], [place] [phone] Nivar, MD CO2 molar conc 21 mmol/L Normal 21-32 [place] Comment on above: Performed By: #### L 400.0202, L400.0302, L400.2200, L400.2500, L400.5100, L404.6500 ####[facility] ([facility])[address] [place], [place] [phone] Nivar, MD Creatinine mass conc 1.03 mg/dL Normal 0.70-1.30 [place] Comment on above: Performed By: #### L 400.0202, L400.0302, L400.2200, L400.2500, L400.5100, L404.6500 ####[facility] ([facility])[address], [place] [phone] Nivar, MD GFR/1.73 sq M predicted among non-blacks MDRD vol rate/area (S/P/Bld) mL/min/{1.73_m2} Normal [place] Comment on above: Result Comment: Water Quality Manager usha Kidney Disease stages by NKDFStage eGFR I >90 II 60-89 III 30-59 IV 15-29 V <15 or dialysisAGE(years) AVERAGE GFR 50-59 93 ml/min/1.73 square metersNote:This result is normalized to 1.73 square meter body surface area. Height and weight are not factored. Performed By: #### L 400.0202, L400.0302, L400.2200, L400.2500, L400.5100, L404.6500 ####[facility] ([facility])[address], [place] [phone] Nivar, MD Glucose mass conc 85 mg/dL Normal 70-110 [place] Comment on above: Result Comment: *Thi s reference range applies to fasting specimens only. Performed By: #### L 400.0202, L400.0302, L400.2200, L400.2500, L400.5100, L404.6500 ####[facility] ([facility])[address], [place] [phone] Nivar, MD Potassium molar conc 4.3 mmol/L Normal 3.6-5.0 [place] Comment on above: Performed By: #### L 400.0202, L400.0302, L400.2200, L400.2500, L400.5100, L404.6500 ####[facility] ([facility])[address], [place] [phone] Nivar, MD Sodium molar conc 132 mmol/L Low 135-145 [place] Comment on above: Performed By: #### L 400.0202, L400.0302, L400.2200, L400.2500, L400.5100, L404.6500 ####[facility] ([facility])[address], [place] [phone] Nivar, MD Urea nitrogen mass conc 22 mg/dL High 7-20 [place] Comment on above: Performed By: #### L 400.0202, L400.0302, L400.2200, L400.2500, L400.5100, L404.6500 ####[facility] ([facility])[address], [place] [phone] Nivar, MD CBC with Differentialon 02-02 Abs Baso Count 0 /cmm Normal 0-200 [place] Comment on above: Performed By: #### L 400.0202, L400.0302, L400.2200, L400.2500, L400.5100, L404.6500 ####[facility] ([facility])[address] [place], [place] [phone] Nivar, MD Abs Eos Count 300 /cmm Normal 0-500 [place] Comment on above: Performed By: #### L 400.0202, L400.0302, L400.2200, L400.2500, L400.5100, L404.6500 ####[facility] ([facility])[address] [place], [place] [phone] Nivar, MD Abs [place] Count 800 /cmm Normal 0-800 [place] Comment on above: Performed By: #### L 400.0202, L400.0302, L400.2200, L400.2500, L400.5100, L404.6500 ####[facility] ([facility])[address] [place] [phone] Nivar, MD Abs Neut Count 6400 /cmm Normal 3913-4262 [place] Comment on above: Performed By: #### L 400.0202, L400.0302, L400.2200, L400.2500, L400.5100, L404.6500 ####[facility] ([facility])[address], [place] [phone] Nivar, MD Anisocytosis Auto Ql (Bld) 1+ Normal [place] Comment on above: Performed By: #### L 400.0202, L400.0302, L400.2200, L400.2500, L400.5100, L404.6500 ####[facility] ([facility])[address], [place] [phone] Nivar, MD Basophils Auto #/vol (Bld) 0.4 % Normal 0-2 [place] Comment on above: Performed By: #### L 400.0202, L400.0302, L400.2200, L400.2500, L400.5100, L404.6500 ####[facility] ([facility])[address] [place] [phone] Nivar, MD EOS-Auto Diff 2.6 % Normal 0-6 [place] Comment on above: Performed By: #### L 400.0202, L400.0302, L400.2200, L400.2500, L400.5100, L404.6500 ####[facility] ([facility])[address], [place] [phone] Nivar, MD Erythrocyte distribution width Auto Ratio (RBC) 18.5 % High 12.0-16.0 [place] Comment on above: Performed By: #### L 400.0202, L400.0302, L400.2200, L400.2500, L400.5100, L404.6500 ####[facility] ([facility])[address] [place] [phone] Nivar, MD Hematocrit Auto Volume Fraction (Bld) 26.6 % Low 40.0-49.0 [place] Comment on above: Performed By: #### L 400.0202, L400.0302, L400.2200, L400.2500, L400.5100, L404.6500 ####[facility] ([facility])[address], [place] [phone] Nivar, MD Hemoglobin mass conc (Bld) 8.4 g/dL Low 13.5-16.5 [place] Comment on above: Performed By: #### L 400.0202, L400.0302, L400.2200, L400.2500, L400.5100, L404.6500 ####[facility] ([facility])[address], [place] [phone] Nivar, MD Lymphocytes Auto #/vol (Bld) 2700 /cmm Normal 4475-0858 [place] Comment on above: Performed By: #### L 400.0202, L400.0302, L400.2200, L400.2500, L400.5100, L404.6500 ####[facility] ([facility])[address], [place] [phone] Nivar, MD Lymphocytes/100 WBC Auto (Bld) 26.1 % Normal 15-45 [place] Comment on above: Performed By: #### L 400.0202, L400.0302, L400.2200, L400.2500, L400.5100, L404.6500 ####[facility] ([facility])[address], [place] [phone] Nivar, MD MCH Auto Entitic mass (RBC) 29.6 pg Normal 27.5-33.0 [place] Comment on above: Performed By: #### L 400.0202, L400.0302, L400.2200, L400.2500, L400.5100, L404.6500 ####[facility] ([facility])[address], [place] [phone] Nivar, MD MCHC Auto mass conc (RBC) 31.7 g/dL Low 33.0-36.0 [place] Comment on above: Performed By: #### L 400.0202, L400.0302, L400.2200, L400.2500, L400.5100, L404.6500 ####[facility] ([facility])[address] [place], [place] [phone] Nivar, MD MCV Auto Entitic volume (RBC) 93.3 CU SOPHIE Normal 80-97 [place] Comment on above: Performed By: #### L 400.0202, L400.0302, L400.2200, L400.2500, L400.5100, L404.6500 ####[facility] ([facility])[address] [place], [place] [phone] Nivar, MD [place]- Auto Diff 7.7 % Normal 2-10 [place] Comment on above: Performed By: #### L 400.0202, L400.0302, L400.2200, L400.2500, L400.5100, L404.6500 ####[facility] ([facility])[address], [place] [phone] Nivar, MD Neut-Auto Diff 63.2 % Normal 40-70 [place] Comment on above: Performed By: #### L 400.0202, L400.0302, L400.2200, L400.2500, L400.5100, L404.6500 ####[facility] ([facility])[address] [phone] Nivar, MD NRBC-Auto 0.1 /100 WBC Normal <1 [place] Comment on above: Performed By: #### L 400.0202, L400.0302, L400.2200, L400.2500, L400.5100, L404.6500 ####[facility] ([facility])[address], [place] [phone] Nivar, MD Platelets Auto #/vol (Bld) 295 th/cmm Normal 150-400 [place] Comment on above: Performed By: #### L 400.0202, L400.0302, L400.2200, L400.2500, L400.5100, L404.6500 ####[facility] ([facility])[address], [place] [phone] Nivar, MD RBC Auto #/vol (Bld) 2.85 mil/cmm Low 4.50-6.00 [facility] Comment on above: Performed By: #### L 400.0202, L400.0302, L400.2200, L400.2500, L400.5100, L404.6500 ####[facility] ([facility])[address], [place] [phone] Nivar, MD WBC Auto #/vol (Bld) 10.2 th/cmm Normal 4.4-10.5 [facility] Comment on above: Performed By: #### L 400.0202, L400.0302, L400.2200, L400.2500, L400.5100, L404.6500 ####[facility] ([facility])[address], [place] [phone] Nivar, MD FL MODIFIED BARIUM SWALLOW W VIDEOon 03-01-2018 FL MODIFIED BARIUM SWALLOW W VIDEO PROCEDURE: FL MODIFIED BARIUM SWALLOW W VIDEOCLINICAL INFORMATION: dysphagia, .COMPARISON: No prior study.TECHNIQUE: Fluoroscopy was provided to speech therapy to evaluate this patient's swallowing mechanism.Patient was administered barium of puree, thin, soft, and solid consistencies. Radiologist was available for the examination.Fluoroscopic time 1 minute 31 secondsImages: 10 sequencesFINDINGS: There was aspiration with thin liquids while using a straw. There was no aspiration with any other tested consistency. There was laryngeal penetration with thin liquids. There is no laryngeal penetration with any other consistency.For additional comments and recommendations please refer to the speech therapy reportIMPRESSION: Aspiration with thin liquids while utilizing a straw. Laryngeal penetration with thin liquidsThis report has been created using voice recognition software. It may contain minor errors which are inherent in voice recognition technology.Final report electronically signed by Dr. Fidel Rodriguez on 03/01/2018 2:32 PMInterpreted by:NADEGE Dixonigned by:Fidel Rodriguez MD03/01/18inal result Normal [facility] Hepatic Function Panel (Live r)on 03-01-2018 Albumin mass conc 3.1 g/dL Low 3.5-5.0 [place] Comment on above: Performed By: #### L 400.0202, L400.0302, L400.2200, L400.2500, L400.5100, L404.6500 ####[facility] ([facility])[address] [place], [place] [phone] Nivar, MD Alk Phos 97 IU/L Normal 41-137 [place] Comment on above: Performed By: #### L 400.0202, L400.0302, L400.2200, L400.2500, L400.5100, L404.6500 ####[facility] ([facility])[address] [place], [place] [phone] Nivar, MD ALT/SGPT 19 IU/L Normal 10-40 [place] Comment on above: Performed By: #### L 400.0202, L400.0302, L400.2200, L400.2500, L400.5100, L404.6500 ####[facility] ([facility])[address], [place] [phone] Nivar, MD AST/SGOT 20 IU/L Normal 15-41 [place] Comment on above: Performed By: #### L 400.0202, L400.0302, L400.2200, L400.2500, L400.5100, L404.6500 ####[facility] ([facility])[address], [place] [phone] Nivar, MD Bili,Direct < 0.1 Low 0.1-0.2 [place] Comment on above: Performed By: #### L 400.0202, L400.0302, L400.2200, L400.2500, L400.5100, L404.6500 ####[facility] ([facility])[address], [place] [phone] Nivar, MD Bili,Total < 0.1 Low 0.2-1.0 [place] Comment on above: Result Comment: Delt a: 0.4 on 02/22/18 Performed By: #### L 400.0202, L400.0302, L400.2200, L400.2500, L400.5100, L404.6500 ####[facility] ([facility])[address], [place] [phone] Nivar, MD Protein mass conc 6.9 g/dL Normal 6.2-8.0 [place] Comment on above: Performed By: #### L 400.0202, L400.0302, L400.2200, L400.2500, L400.5100, L404.6500 ####[facility] ([facility])[address], [place] [phone] Nivar, MD Magnesiumon 03-01-2018 Magnesium mass conc 1.8 mg/dL Normal 1.8-2.5 [place] Comment on above: Performed By: #### L 400.0202, L400.0302, L400.2200, L400.2500, L400.5100, L404.6500 ####[facility] ([facility])[address], [place] [phone] Nivar, MD Basic Metabolic Panel,Fastin sabas 02-28-2018 Anion gap 3 molar conc 5 mmol/L Normal 4-12 [place] Comment on above: Performed By: #### L 400.0202, L400.0302, L400.2200, L400.2500, L400.5100, L404.6500 ####[facility] ([facility])[address], [place] [phone] Nivar, MD Calcium mass conc 8.4 mg/dL Low 8.8-10.5 [place] Comment on above: Performed By: #### L 400.0202, L400.0302, L400.2200, L400.2500, L400.5100, L404.6500 ####[facility] ([facility])[address] [place] [phone] Nivar, MD Chloride molar conc 109 mmol/L Normal 101-111 [place] Comment on above: Performed By: #### L 400.0202, L400.0302, L400.2200, L400.2500, L400.5100, L404.6500 ####[facility] ([facility])[address], [place] [phone] Nivar, MD CO2 molar conc 22 mmol/L Normal 21-32 [place] Comment on above: Performed By: #### L 400.0202, L400.0302, L400.2200, L400.2500, L400.5100, L404.6500 ####[facility] ([facility])[address], [place] [phone] Nivar, MD Creatinine mass conc 1.03 mg/dL Normal 0.70-1.30 [place] Comment on above: Performed By: #### L 400.0202, L400.0302, L400.2200, L400.2500, L400.5100, L404.6500 ####[facility] ([facility])[address] [phone] Nivar, MD GFR/1.73 sq M predicted among non-blacks MDRD vol rate/area (S/P/Bld) mL/min/{1.73_m2} Normal [place] Comment on above: Result Comment: Water Quality Manager usha Kidney Disease stages by NKDFStage eGFR I >90 II 60-89 III 30-59 IV 15-29 V <15 or dialysisAGE(years) AVERAGE GFR 50-59 93 ml/min/1.73 square metersNote:This result is normalized to 1.73 square meter body surface area. Height and weight are not factored. Performed By: #### L 400.0202, L400.0302, L400.2200, L400.2500, L400.5100, L404.6500 ####[facility] ([facility])[address] [phone] Nivar, MD Glucose mass conc 94 mg/dL Normal 70-110 [place] Comment on above: Performed By: #### L 400.0202, L400.0302, L400.2200, L400.2500, L400.5100, L404.6500 ####[facility] ([facility])[address], [place] [phone] Nivar, MD Potassium molar conc 3.7 mmol/L Normal 3.6-5.0 [place] Comment on above: Performed By: #### L 400.0202, L400.0302, L400.2200, L400.2500, L400.5100, L404.6500 ####[facility] ([facility])[address], [place] [phone] Nivar, MD Sodium molar conc 136 mmol/L Normal 135-145 [place] Comment on above: Performed By: #### L 400.0202, L400.0302, L400.2200, L400.2500, L400.5100, L404.6500 ####[facility] ([facility])[address], [place] [phone] Nivar, MD Urea nitrogen mass conc 22 mg/dL High 7-20 [place] Comment on above: Performed By: #### L 400.0202, L400.0302, L400.2200, L400.2500, L400.5100, L404.6500 ####[facility] ([facility])[address], [place] [phone] Nivar, MD CBC with Differentialon 02-02 Abs Baso Count 0 /cmm Normal 0-200 [place] Comment on above: Performed By: #### L 400.0202, L400.0302, L400.2200, L400.2500, L400.5100, L404.6500 ####[facility] ([facility])[address], [place] [phone] Nivar, MD Abs Eos Count 400 /cmm Normal 0-500 [place] Comment on above: Performed By: #### L 400.0202, L400.0302, L400.2200, L400.2500, L400.5100, L404.6500 ####[facility] ([facility])[address], [place] [phone] Nivar, MD Abs [place] Count 1000 /cmm High 0-800 [place] Comment on above: Performed By: #### L 400.0202, L400.0302, L400.2200, L400.2500, L400.5100, L404.6500 ####[facility] ([facility])[address] [place] [phone] Nivar, MD Abs Neut Count 8300 /cmm High 3760-0564 [place] Comment on above: Performed By: #### L 400.0202, L400.0302, L400.2200, L400.2500, L400.5100, L404.6500 ####[facility] ([facility])[address], [place] [phone] Nivar, MD Anisocytosis Auto Ql (Bld) 1+ Normal [place] Comment on above: Performed By: #### L 400.0202, L400.0302, L400.2200, L400.2500, L400.5100, L404.6500 ####[facility] ([facility])[address], [place] [phone] Nivar, MD Basophils Auto #/vol (Bld) 0.3 % Normal 0-2 [place] Comment on above: Performed By: #### L 400.0202, L400.0302, L400.2200, L400.2500, L400.5100, L404.6500 ####[facility] ([facility])[address], [place] [phone] Nivar, MD EOS-Auto Diff 2.9 % Normal 0-6 [place] Comment on above: Performed By: #### L 400.0202, L400.0302, L400.2200, L400.2500, L400.5100, L404.6500 ####[facility] ([facility])[address], [place] [phone] Nivar, MD Erythrocyte distribution width Auto Ratio (RBC) 18.2 % High 12.0-16.0 [place] Comment on above: Performed By: #### L 400.0202, L400.0302, L400.2200, L400.2500, L400.5100, L404.6500 ####[facility] ([facility])[address] [place] [phone] Nivar, MD Hematocrit Auto Volume Fraction (Bld) 24.4 % Low 40.0-49.0 [place] Comment on above: Performed By: #### L 400.0202, L400.0302, L400.2200, L400.2500, L400.5100, L404.6500 ####[facility] ([facility])[address], [place] [phone] Nivar, MD Hemoglobin mass conc (Bld) 7.6 g/dL Low 13.5-16.5 [place] Comment on above: Performed By: #### L 400.0202, L400.0302, L400.2200, L400.2500, L400.5100, L404.6500 ####[facility] [facility], [place] [phone] Nivar, MD Lymphocytes Auto #/vol (Bld) 3200 /cmm Normal 5298-6564 [place] Comment on above: Performed By: #### L 400.0202, L400.0302, L400.2200, L400.2500, L400.5100, L404.6500 ####[facility] ([facility])[address], [place] [phone] Nivar, MD Lymphocytes/100 WBC Auto (Bld) 24.8 % Normal 15-45 [place] Comment on above: Performed By: #### L 400.0202, L400.0302, L400.2200, L400.2500, L400.5100, L404.6500 ####[facility] ([facility])[address], [place] [phone] Nivar, MD MCH Auto Entitic mass (RBC) 29.2 pg Normal 27.5-33.0 [place] Comment on above: Performed By: #### L 400.0202, L400.0302, L400.2200, L400.2500, L400.5100, L404.6500 ####[facility] ([facility])[address], [place] [phone] Nivar, MD MCHC Auto mass conc (RBC) 31.3 g/dL Low 33.0-36.0 [place] Comment on above: Performed By: #### L 400.0202, L400.0302, L400.2200, L400.2500, L400.5100, L404.6500 ####[facility] ([facility])[address], [place] [phone] Nivar, MD MCV Auto Entitic volume (RBC) 93.4 CU SOPHIE Normal 80-97 [place] Comment on above: Performed By: #### L 400.0202, L400.0302, L400.2200, L400.2500, L400.5100, L404.6500 ####[facility] ([facility])[address], [place] [phone] Nivar, MD [place]- Auto Diff 7.7 % Normal 2-10 [place] Comment on above: Performed By: #### L 400.0202, L400.0302, L400.2200, L400.2500, L400.5100, L404.6500 ####[facility] ([facility])[address], [place] [phone] Nivar, MD Neut-Auto Diff 64.3 % Normal 40-70 [place] Comment on above: Performed By: #### L 400.0202, L400.0302, L400.2200, L400.2500, L400.5100, L404.6500 ####[facility] ([facility])[address] [phone] Nivar, MD NRBC-Auto 0.1 /100 WBC Normal <1 [place] Comment on above: Performed By: #### L 400.0202, L400.0302, L400.2200, L400.2500, L400.5100, L404.6500 ####[facility] ([facility])[address], [place] [phone] Nivar, MD Platelets Auto #/vol (Bld) 295 th/cmm Normal 150-400 [place] Comment on above: Performed By: #### L 400.0202, L400.0302, L400.2200, L400.2500, L400.5100, L404.6500 ####[facility] ([facility])[address], [place] [phone] Nivar, MD RBC Auto #/vol (Bld) 2.61 mil/cmm Low 4.50-6.00 [facility] Comment on above: Performed By: #### L 400.0202, L400.0302, L400.2200, L400.2500, L400.5100, L404.6500 ####[facility] ([facility])[address], [place] [phone] Nivar, MD WBC Auto #/vol (Bld) 12.9 th/cmm High 4.4-10.5 [facility] Comment on above: Performed By: #### L 400.0202, L400.0302, L400.2200, L400.2500, L400.5100, L404.6500 ####[facility] ([facility])[address], [place] [phone] Nivar, MD Magnesiumon 02-28-2018 Magnesium mass conc 1.8 mg/dL Normal 1.8-2.5 [place] Comment on above: Performed By: #### L 400.0202, L400.0302, L400.2200, L400.2500, L400.5100, L404.6500 ####[facility] ([facility])[address] [place] [phone] Nivar, MD Phosphoruson 02-28-2018 Phosphate mass conc 3.5 mg/dL Normal 2.4-4.7 [place] Comment on above: Performed By: #### L 400.0202, L400.0302, L400.2200, L400.2500, L400.5100, L404.6500 ####[facility] ([facility])[address], [place] [phone] Nivar, MD Basic Metabolic,Non-Fastingo n 02-27-2018 Anion gap 3 molar conc 7 mmol/L Normal 4-12 [place] Comment on above: Performed By: #### L 400.0202, L400.0302, L400.2200, L400.2500, L400.5100, L404.6500 ####[facility] ([facility])[address] [place] [phone] Nivar, MD Calcium mass conc 8.3 mg/dL Low 8.8-10.5 [place] Comment on above: Performed By: #### L 400.0202, L400.0302, L400.2200, L400.2500, L400.5100, L404.6500 ####[facility] ([facility])[address], [place] [phone] Nivar, MD Chloride molar conc 110 mmol/L Normal 101-111 [place] Comment on above: Performed By: #### L 400.0202, L400.0302, L400.2200, L400.2500, L400.5100, L404.6500 ####[facility] ([facility])[address], [place] [phone] Nivar, MD CO2 molar conc 23 mmol/L Normal 21-32 [place] Comment on above: Performed By: #### L 400.0202, L400.0302, L400.2200, L400.2500, L400.5100, L404.6500 ####[facility] ([facility])[address], [place] [phone] Nivar, MD Creatinine mass conc 1.21 mg/dL Normal 0.70-1.30 [place] Comment on above: Performed By: #### L 400.0202, L400.0302, L400.2200, L400.2500, L400.5100, L404.6500 ####[facility] ([facility])[address], [place] [phone] Nivar, MD GFR/1.73 sq M predicted among non-blacks MDRD vol rate/area (S/P/Bld) mL/min/{1.73_m2} Normal [place] Comment on above: Result Comment: Water Quality Manager usha Kidney Disease stages by NKDFStage eGFR I >90 II 60-89 III 30-59 IV 15-29 V <15 or dialysisAGE(years) AVERAGE GFR 50-59 93 ml/min/1.73 square metersNote:This result is normalized to 1.73 square meter body surface area. Height and weight are not factored. Performed By: #### L 400.0202, L400.0302, L400.2200, L400.2500, L400.5100, L404.6500 ####[facility] ([facility])[address], [place] [phone] Nivar, MD Glucose mass conc 101 mg/dL Normal 70-110 [place] Comment on above: Result Comment: *Thi s reference range applies to fasting specimens only. Performed By: #### L 400.0202, L400.0302, L400.2200, L400.2500, L400.5100, L404.6500 ####[facility] ([facility])[address] [place] [phone] Nivar, MD Potassium molar conc 3.8 mmol/L Normal 3.6-5.0 [place] Comment on above: Performed By: #### L 400.0202, L400.0302, L400.2200, L400.2500, L400.5100, L404.6500 ####[facility] ([facility])[address], [place] [phone] Nivar, MD Sodium molar conc 140 mmol/L Normal 135-145 [place] Comment on above: Result Comment: Delt a: 146 on 02/26/18 Performed By: #### L 400.0202, L400.0302, L400.2200, L400.2500, L400.5100, L404.6500 ####[facility] ([facility])[address], [place] [phone] Nivar, MD Urea nitrogen mass conc 24 mg/dL High 7-20 [place] Comment on above: Performed By: #### L 400.0202, L400.0302, L400.2200, L400.2500, L400.5100, L404.6500 ####[facility] ([facility])[address], [place] [phone] Nivar, MD Magnesiumon 02-27-2018 Magnesium mass conc 1.6 mg/dL Low 1.8-2.5 [place] Comment on above: Performed By: #### L 400.0202, L400.0302, L400.2200, L400.2500, L400.5100, L404.6500 ####[facility] ([facility])[address], [place] [phone] Nivar, MD Phosphoruson 02-27-2018 Phosphate mass conc 3.0 mg/dL Normal 2.4-4.7 [place] Comment on above: Performed By: #### L 400.0202, L400.0302, L400.2200, L400.2500, L400.5100, L404.6500 ####[facility] ([facility])[address], [place] [phone] Nivar, MD Basic Metabolic,Non-Fastingo n 02-26-2018 Anion gap 3 molar conc 10 mmol/L Normal 4-12 [place] Comment on above: Performed By: #### L 400.0202, L400.0302, L400.2200, L400.2500, L400.5100, L404.6500 ####[facility] ([facility])[address], [place] [phone] Nivar, MD Calcium mass conc 8.7 mg/dL Low 8.8-10.5 [place] Comment on above: Performed By: #### L 400.0202, L400.0302, L400.2200, L400.2500, L400.5100, L404.6500 ####[facility] ([facility])[address], [place] [phone] Nivar, MD Chloride molar conc 114 mmol/L High 101-111 [place] Comment on above: Performed By: #### L 400.0202, L400.0302, L400.2200, L400.2500, L400.5100, L404.6500 ####[facility] ([facility])[address], [place] [phone] Nivar, MD CO2 molar conc 22 mmol/L Normal 21-32 [place] Comment on above: Performed By: #### L 400.0202, L400.0302, L400.2200, L400.2500, L400.5100, L404.6500 ####[facility] ([facility])[address] [place] [phone] Nivar, MD Creatinine mass conc 1.28 mg/dL Normal 0.70-1.30 [place] Comment on above: Performed By: #### L 400.0202, L400.0302, L400.2200, L400.2500, L400.5100, L404.6500 ####[facility] ([facility])[address], [place] [phone] Nivar, MD GFR/1.73 sq M predicted among non-blacks MDRD vol rate/area (S/P/Bld) mL/min/{1.73_m2} Normal [place] Comment on above: Result Comment: Water Quality Manager usha Kidney Disease stages by NKDFStage eGFR I >90 II 60-89 III 30-59 IV 15-29 V <15 or dialysisAGE(years) AVERAGE GFR 50-59 93 ml/min/1.73 square metersNote:This result is normalized to 1.73 square meter body surface area. Height and weight are not factored. Performed By: #### L 400.0202, L400.0302, L400.2200, L400.2500, L400.5100, L404.6500 ####[facility] ([facility])[address] [place] [phone] Nivar, MD Glucose mass conc 110 mg/dL Normal 70-110 [place] Comment on above: Result Comment: *Thi s reference range applies to fasting specimens only. Performed By: #### L 400.0202, L400.0302, L400.2200, L400.2500, L400.5100, L404.6500 ####[facility] ([facility])[address] [place] [phone] Nivar, MD Potassium molar conc 3.6 mmol/L Normal 3.6-5.0 [place] Comment on above: Performed By: #### L 400.0202, L400.0302, L400.2200, L400.2500, L400.5100, L404.6500 ####[facility] ([facility])[address], [place] [phone] Nivar, MD Sodium molar conc 146 mmol/L High 135-145 [place] Comment on above: Performed By: #### L 400.0202, L400.0302, L400.2200, L400.2500, L400.5100, L404.6500 ####[facility] ([facility])[address], [place] [phone] Nivar, MD Urea nitrogen mass conc 27 mg/dL High 7-20 [place] Comment on above: Performed By: #### L 400.0202, L400.0302, L400.2200, L400.2500, L400.5100, L404.6500 ####[facility] ([facility])[address], [place] [phone] Nivar, MD Magnesiumon 02-26-2018 Magnesium mass conc 1.9 mg/dL Normal 1.8-2.5 [place] Comment on above: Performed By: #### L 400.0202, L400.0302, L400.2200, L400.2500, L400.5100, L404.6500 ####[facility] ([facility])[address], [place] [phone] Nivar, MD Phosphoruson 02-26-2018 Phosphate mass conc 3.5 mg/dL Normal 2.4-4.7 [place] Comment on above: Performed By: #### L 400.0202, L400.0302, L400.2200, L400.2500, L400.5100, L404.6500 ####[facility] ([facility])[address] [place] [phone] Nivar, MD Basic Metabolic,Non-Fastingo n 02-25-2018 Anion gap 3 molar conc 9 mmol/L Normal 4-12 [place] Comment on above: Performed By: #### L 400.0202, L400.0302, L400.2200, L400.2500, L400.5100, L404.6500 ####[facility] ([facility])[address], [place] [phone] Nivar, MD Calcium mass conc 8.2 mg/dL Low 8.8-10.5 [place] Comment on above: Performed By: #### L 400.0202, L400.0302, L400.2200, L400.2500, L400.5100, L404.6500 ####[facility] ([facility])[address] [place] [phone] Nivar, MD Chloride molar conc 114 mmol/L High 101-111 [place] Comment on above: Performed By: #### L 400.0202, L400.0302, L400.2200, L400.2500, L400.5100, L404.6500 ####[facility] ([facility])[address] [place] [phone] Nivar, MD CO2 molar conc 22 mmol/L Normal 21-32 [place] Comment on above: Performed By: #### L 400.0202, L400.0302, L400.2200, L400.2500, L400.5100, L404.6500 ####[facility] ([facility])[address] [place] [phone] Nivar, MD Creatinine mass conc 1.32 mg/dL High 0.70-1.30 [place] Comment on above: Performed By: #### L 400.0202, L400.0302, L400.2200, L400.2500, L400.5100, L404.6500 ####[facility] ([facility])[address], [place] [phone] Nivar, MD GFR/1.73 sq M predicted among non-blacks MDRD vol rate/area (S/P/Bld) mL/min/{1.73_m2} Normal [place] Comment on above: Result Comment: Water Quality Manager usha Kidney Disease stages by NKDFStage eGFR I >90 II 60-89 III 30-59 IV 15-29 V <15 or dialysisAGE(years) AVERAGE GFR 50-59 93 ml/min/1.73 square metersNote:This result is normalized to 1.73 square meter body surface area. Height and weight are not factored. Performed By: #### L 400.0202, L400.0302, L400.2200, L400.2500, L400.5100, L404.6500 ####[facility] ([facility])[address], [place] [phone] Nivar, MD Glucose mass conc 96 mg/dL Normal 70-110 [place] Comment on above: Result Comment: *Thi s reference range applies to fasting specimens only. Performed By: #### L 400.0202, L400.0302, L400.2200, L400.2500, L400.5100, L404.6500 ####[facility] ([facility])[address], [place] [phone] Nivar, MD Potassium molar conc 3.3 mmol/L Low 3.6-5.0 [place] Comment on above: Performed By: #### L 400.0202, L400.0302, L400.2200, L400.2500, L400.5100, L404.6500 ####[facility] ([facility])[address], [place] [phone] Nivar, MD Sodium molar conc 145 mmol/L Invalid Interpretation Code 135-145 [place] Comment on above: Result Comment: Delt a: 140 on 02/24/18 Performed By: #### L 400.0202, L400.0302, L400.2200, L400.2500, L400.5100, L404.6500 ####[facility] ([facility])[address], [place] [phone] Nivar, MD Urea nitrogen mass conc 30 mg/dL High 7-20 [place] Comment on above: Performed By: #### L 400.0202, L400.0302, L400.2200, L400.2500, L400.5100, L404.6500 ####[facility] ([facility])[address], [place] [phone] Nivar, MD CBC with Differentialon 02-02 Abs Baso Count 100 /cmm Normal 0-200 [place] Comment on above: Performed By: #### L 400.0202, L400.0302, L400.2200, L400.2500, L400.5100, L404.6500 ####[facility] ([facility])[address], [place] [phone] Nivar, MD Abs Eos Count 400 /cmm Normal 0-500 [place] Comment on above: Performed By: #### L 400.0202, L400.0302, L400.2200, L400.2500, L400.5100, L404.6500 ####[facility] ([facility])[address], [place] [phone] Nivar, MD Abs [place] Count 900 /cmm High 0-800 [place] Comment on above: Performed By: #### L 400.0202, L400.0302, L400.2200, L400.2500, L400.5100, L404.6500 ####[facility] ([facility])[address], [place] [phone] Nivar, MD Abs Neut Count 9700 /cmm High 4187-1672 [place] Comment on above: Performed By: #### L 400.0202, L400.0302, L400.2200, L400.2500, L400.5100, L404.6500 ####[facility] ([facility])[address], [place] [phone] Nivar, MD Basophils Auto #/vol (Bld) 0.4 % Normal 0-2 [place] Comment on above: Performed By: #### L 400.0202, L400.0302, L400.2200, L400.2500, L400.5100, L404.6500 ####[facility] ([facility])[address], [place] [phone] Nivar, MD EOS-Auto Diff 3.0 % Normal 0-6 [place] Comment on above: Performed By: #### L 400.0202, L400.0302, L400.2200, L400.2500, L400.5100, L404.6500 ####[facility] ([facility])[address], [place] [phone] Nivar, MD Erythrocyte distribution width Auto Ratio (RBC) 17.8 % High 12.0-16.0 [place] Comment on above: Performed By: #### L 400.0202, L400.0302, L400.2200, L400.2500, L400.5100, L404.6500 ####[facility] ([facility])[address], [place] [phone] Nivar, MD Hematocrit Auto Volume Fraction (Bld) 23.6 % Low 40.0-49.0 [place] Comment on above: Performed By: #### L 400.0202, L400.0302, L400.2200, L400.2500, L400.5100, L404.6500 ####[facility] ([facility])[address] [place] [phone] Nivar, MD Hemoglobin mass conc (Bld) 7.4 g/dL Low 13.5-16.5 [place] Comment on above: Performed By: #### L 400.0202, L400.0302, L400.2200, L400.2500, L400.5100, L404.6500 ####[facility] ([facility])[address] [place] [phone] Nivar, MD Lymphocytes Auto #/vol (Bld) 3000 /cmm Normal 0076-2900 [place] Comment on above: Performed By: #### L 400.0202, L400.0302, L400.2200, L400.2500, L400.5100, L404.6500 ####[facility] ([facility])[address] [place] [phone] Nivar, MD Lymphocytes/100 WBC Auto (Bld) 21.1 % Normal 15-45 [place] Comment on above: Performed By: #### L 400.0202, L400.0302, L400.2200, L400.2500, L400.5100, L404.6500 ####[facility] ([facility])[address] [place] [phone] Nivar, MD MCH Auto Entitic mass (RBC) 29.1 pg Normal 27.5-33.0 [place] Comment on above: Performed By: #### L 400.0202, L400.0302, L400.2200, L400.2500, L400.5100, L404.6500 ####[facility] ([facility])[address] [place] [phone] Nivar, MD MCHC Auto mass conc (RBC) 31.3 g/dL Low 33.0-36.0 [place] Comment on above: Performed By: #### L 400.0202, L400.0302, L400.2200, L400.2500, L400.5100, L404.6500 ####[facility] ([facility])[address], [place] [phone] Nivar, MD MCV Auto Entitic volume (RBC) 93.2 CU SOPHIE Normal 80-97 [place] Comment on above: Performed By: #### L 400.0202, L400.0302, L400.2200, L400.2500, L400.5100, L404.6500 ####[facility] ([facility])[address], [place] [phone] Nivar, MD [place]- Auto Diff 6.6 % Normal 2-10 [place] Comment on above: Performed By: #### L 400.0202, L400.0302, L400.2200, L400.2500, L400.5100, L404.6500 ####[facility] ([facility])[address], [place] [phone] Nivar, MD Neut-Auto Diff 68.9 % Normal 40-70 [place] Comment on above: Performed By: #### L 400.0202, L400.0302, L400.2200, L400.2500, L400.5100, L404.6500 ####[facility] ([facility])[address] [phone] Nivar, MD NRBC-Auto 0.1 /100 WBC Normal <1 [place] Comment on above: Performed By: #### L 400.0202, L400.0302, L400.2200, L400.2500, L400.5100, L404.6500 ####[facility] ([facility])[address], [place] [phone] Nivar, MD Platelets Auto #/vol (Bld) 304 th/cmm Normal 150-400 [place] Comment on above: Performed By: #### L 400.0202, L400.0302, L400.2200, L400.2500, L400.5100, L404.6500 ####[facility] ([facility])[address] [place] [phone] Nivar, MD RBC Auto #/vol (Bld) 2.53 mil/cmm Low 4.50-6.00 [facility] Comment on above: Performed By: #### L 400.0202, L400.0302, L400.2200, L400.2500, L400.5100, L404.6500 ####[facility] ([facility])[address], [place] [phone] Nivar, MD WBC Auto #/vol (Bld) 14.1 th/cmm High 4.4-10.5 [facility] Comment on above: Performed By: #### L 400.0202, L400.0302, L400.2200, L400.2500, L400.5100, L404.6500 ####[facility] ([facility])[address] [place] [phone] Nivar, MD Ferritinon 02-25-2018 Ferritin [Mass/volume] in Serum or Plasma 1719 ng/mL High 24-336 [place] Comment on above: Performed By: #### L 400.0202, L400.0302, L400.2200, L400.2500, L400.5100, L404.6500 ####[facility] ([facility])[address], [place] [phone] Nivar, MD Hepatic Function Panel (Live r)on 02-25-2018 Albumin mass conc 3.2 g/dL Low 3.5-5.0 [place] Comment on above: Performed By: #### L 400.0202, L400.0302, L400.2200, L400.2500, L400.5100, L404.6500 ####[facility] ([facility])[address], [place] [phone] Nivar, MD Alk Phos 134 IU/L Normal 41-137 [place] Comment on above: Performed By: #### L 400.0202, L400.0302, L400.2200, L400.2500, L400.5100, L404.6500 ####[facility] ([facility])[address], [place] [phone] Nivar, MD ALT/SGPT 32 IU/L Normal 10-40 [place] Comment on above: Performed By: #### L 400.0202, L400.0302, L400.2200, L400.2500, L400.5100, L404.6500 ####[facility] ([facility])[address], [place] [phone] Nivar, MD AST/SGOT 33 IU/L Normal 15-41 [place] Comment on above: Performed By: #### L 400.0202, L400.0302, L400.2200, L400.2500, L400.5100, L404.6500 ####[facility] ([facility])[address], [place] [phone] Nivar, MD Bili, Total 0.5 mg/dL Normal 0.2-1.0 [place] Comment on above: Performed By: #### L 400.0202, L400.0302, L400.2200, L400.2500, L400.5100, L404.6500 ####[facility] ([facility])[address], [place] [phone] Nivar, MD Bili,Direct 0.1 mg/dL Normal 0.1-0.2 [place] Comment on above: Performed By: #### L 400.0202, L400.0302, L400.2200, L400.2500, L400.5100, L404.6500 ####[facility] ([facility])[address] [place], [place] [phone] Nivar, MD Protein mass conc 7.8 g/dL Normal 6.2-8.0 [place] Comment on above: Performed By: #### L 400.0202, L400.0302, L400.2200, L400.2500, L400.5100, L404.6500 ####[facility] ([facility])[address] [place], [place] [phone] Nivar, MD Iron Binding and Saturationo n 02-25-2018 Iron, Serum 59 mcg/dL Normal 45-182 [place] Comment on above: Performed By: #### L 400.0202, L400.0302, L400.2200, L400.2500, L400.5100, L404.6500 ####[facility] ([facility])[address] [phone] Nivar, MD Transferrin mass conc 162 mg/dL Low 180-329 [place] Comment on above: Performed By: #### L 400.0202, L400.0302, L400.2200, L400.2500, L400.5100, L404.6500 ####[facility] ([facility])[address], [place] [phone] Nivar, MD % Iron Saturation 26 % Normal 20-50 [place] Comment on above: Performed By: #### L 400.0202, L400.0302, L400.2200, L400.2500, L400.5100, L404.6500 ####[facility] ([facility])[address], [place] [phone] Nivar, MD Magnesiumon 02-25-2018 Magnesium mass conc 1.6 mg/dL Low 1.8-2.5 [place] Comment on above: Performed By: #### L 400.0202, L400.0302, L400.2200, L400.2500, L400.5100, L404.6500 ####[facility] ([facility])[address], [place] [phone] Nivar, MD Phosphoruson 02-25-2018 Phosphate mass conc 3.6 mg/dL Normal 2.4-4.7 [place] Comment on above: Performed By: #### L 400.0202, L400.0302, L400.2200, L400.2500, L400.5100, L404.6500 ####[facility] ([facility])[address], [place] [phone] Nivar, MD Reticulocyte Counton 018 Reticulocyte Count 1.60 % Normal 0.90-2.60 [place] Comment on above: Performed By: #### L 400.0202, L400.0302, L400.2200, L400.2500, L400.5100, L404.6500 ####[facility] ([facility])[address], [place] [phone] Nivar, MD Basic Metabolic,Non-Fastingo n 02-24-2018 Anion gap 3 molar conc 9 mmol/L Normal 4-12 [place] Comment on above: Performed By: #### L 400.0202, L400.0302, L400.2200, L400.2500, L400.5100, L404.6500 ####[facility] ([facility])[address] [place], [place] [phone] Nivar, MD Calcium mass conc 8.1 mg/dL Low 8.8-10.5 [place] Comment on above: Performed By: #### L 400.0202, L400.0302, L400.2200, L400.2500, L400.5100, L404.6500 ####[facility] ([facility])[address] [place] [phone] Nivar, MD Chloride molar conc 110 mmol/L Normal 101-111 [place] Comment on above: Performed By: #### L 400.0202, L400.0302, L400.2200, L400.2500, L400.5100, L404.6500 ####[facility] ([facility])[address] [place] [phone] Nivar, MD CO2 molar conc 21 mmol/L Normal 21-32 [place] Comment on above: Performed By: #### L 400.0202, L400.0302, L400.2200, L400.2500, L400.5100, L404.6500 ####[facility] ([facility])[address] [place] [phone] Nivar, MD Creatinine mass conc 1.42 mg/dL High 0.70-1.30 [place] Comment on above: Performed By: #### L 400.0202, L400.0302, L400.2200, L400.2500, L400.5100, L404.6500 ####[facility] ([facility])[address] [place] [phone] Nivar, MD GFR/1.73 sq M predicted among non-blacks MDRD vol rate/area (S/P/Bld) mL/min/{1.73_m2} Normal [place] Comment on above: Result Comment: Water Quality Manager usha Kidney Disease stages by NKDFStage eGFR I >90 II 60-89 III 30-59 IV 15-29 V <15 or dialysisAGE(years) AVERAGE GFR 50-59 93 ml/min/1.73 square metersNote:This result is normalized to 1.73 square meter body surface area. Height and weight are not factored. Performed By: #### L 400.0202, L400.0302, L400.2200, L400.2500, L400.5100, L404.6500 ####[facility] ([facility])[address] [phone] Nivar, MD Glucose mass conc 112 mg/dL High 70-110 [place] Comment on above: Performed By: #### L 400.0202, L400.0302, L400.2200, L400.2500, L400.5100, L404.6500 ####[facility] ([facility])[address], [place] [phone] Nivar, MD Potassium molar conc 3.7 mmol/L Normal 3.6-5.0 [place] Comment on above: Performed By: #### L 400.0202, L400.0302, L400.2200, L400.2500, L400.5100, L404.6500 ####[facility] ([facility])[address], [place] [phone] Nivar, MD Sodium molar conc 140 mmol/L Normal 135-145 [place] Comment on above: Performed By: #### L 400.0202, L400.0302, L400.2200, L400.2500, L400.5100, L404.6500 ####[facility] ([facility])[address], [place] [phone] Nivar, MD Urea nitrogen mass conc 32 mg/dL High 7-20 [place] Comment on above: Performed By: #### L 400.0202, L400.0302, L400.2200, L400.2500, L400.5100, L404.6500 ####[facility] ([facility])[address], [place] [phone] Nivar, MD Ionized Calciumon 02-24-2018 Ionized Calcium 1.16 mmol/L Normal 1.15-1.29 [place] Comment on above: Performed By: #### L 400.0202, L400.0302, L400.2200, L400.2500, L400.5100, L404.6500 ####[facility] ([facility])[address], [place] [phone] Nivar, MD Magnesiumon 02-24-2018 Magnesium mass conc 1.9 mg/dL Normal 1.8-2.5 [place] Comment on above: Performed By: #### L 400.0202, L400.0302, L400.2200, L400.2500, L400.5100, L404.6500 ####[facility] ([facility])[address] [place], [place] [phone] Nivar, MD Phosphoruson 02-24-2018 Phosphate mass conc 4.1 mg/dL Normal 2.4-4.7 [place] Comment on above: Performed By: #### L 400.0202, L400.0302, L400.2200, L400.2500, L400.5100, L404.6500 ####[facility] ([facility])[address] [place] [phone] Nivar, MD Basic Metabolic,Non-Fastingo n 02-23-2018 Anion gap 3 molar conc 10 mmol/L Normal 4-12 [place] Comment on above: Performed By: #### L 400.0202, L400.0302, L400.2200, L400.2500, L400.5100, L404.6500 ####[facility] ([facility])[address], [place] [phone] Nivar, MD Calcium mass conc 8.0 mg/dL Low 8.8-10.5 [place] Comment on above: Performed By: #### L 400.0202, L400.0302, L400.2200, L400.2500, L400.5100, L404.6500 ####[facility] ([facility])[address] [place] [phone] Nivar, MD Chloride molar conc 112 mmol/L High 101-111 [place] Comment on above: Performed By: #### L 400.0202, L400.0302, L400.2200, L400.2500, L400.5100, L404.6500 ####[facility] ([facility])[address] [place] [phone] Nivar, MD CO2 molar conc 19 mmol/L Low 21-32 [place] Comment on above: Performed By: #### L 400.0202, L400.0302, L400.2200, L400.2500, L400.5100, L404.6500 ####[facility] ([facility])[address] [place] [phone] Nivar, MD Creatinine mass conc 1.29 mg/dL Normal 0.70-1.30 [place] Comment on above: Performed By: #### L 400.0202, L400.0302, L400.2200, L400.2500, L400.5100, L404.6500 ####[facility] ([facility])[address] [place] [phone] Nivar, MD GFR/1.73 sq M predicted among non-blacks MDRD vol rate/area (S/P/Bld) mL/min/{1.73_m2} Normal [place] Comment on above: Result Comment: Sarah usha Kidney Disease stages by NKDFStage eGFR I >90 II 60-89 III 30-59 IV 15-29 V <15 or dialysisAGE(years) AVERAGE GFR 50-59 93 ml/min/1.73 square metersNote:This result is normalized to 1.73 square meter body surface area. Height and weight are not factored. Performed By: #### L 400.0202, L400.0302, L400.2200, L400.2500, L400.5100, L404.6500 ####[facility] ([facility])[address] [place] [phone] Nivar, MD Glucose mass conc 97 mg/dL Normal 70-110 [place] Comment on above: Result Comment: *Thi s reference range applies to fasting specimens only. Performed By: #### L 400.0202, L400.0302, L400.2200, L400.2500, L400.5100, L404.6500 ####[facility] ([facility])[address], [place] [phone] Nivar, MD Potassium molar conc 3.8 mmol/L Normal 3.6-5.0 [place] Comment on above: Performed By: #### L 400.0202, L400.0302, L400.2200, L400.2500, L400.5100, L404.6500 ####[facility] ([facility])[address] [place] [phone] Nivar, MD Sodium molar conc 141 mmol/L Normal 135-145 [place] Comment on above: Performed By: #### L 400.0202, L400.0302, L400.2200, L400.2500, L400.5100, L404.6500 ####[facility] ([facility])[address], [place] [phone] Nivar, MD Urea nitrogen mass conc 32 mg/dL High 7-20 [place] Comment on above: Performed By: #### L 400.0202, L400.0302, L400.2200, L400.2500, L400.5100, L404.6500 ####[facility] ([facility])[address], [place] [phone] Nivar, MD Magnesiumon 02-23-2018 Magnesium mass conc 1.6 mg/dL Low 1.8-2.5 [place] Comment on above: Performed By: #### L 400.0202, L400.0302, L400.2200, L400.2500, L400.5100, L404.6500 ####[facility] ([facility])[address], [place] [phone] Nivar, MD Phosphoruson 02-23-2018 Phosphate mass conc 4.0 mg/dL Invalid Interpretation Code 2.4-4.7 [place] Comment on above: Result Comment: Delt a: 1.8 on 02/22/18-401 Performed By: #### L 400.0202, L400.0302, L400.2200, L400.2500, L400.5100, L404.6500 ####[facility] ([facility])[address], [place] [phone] Nivar, MD Basic Metabolic,Non-Fastingo n 02-22-2018 Anion gap 3 molar conc 8 mmol/L Normal 4-12 [place] Comment on above: Performed By: #### L 400.0202, L400.0302, L400.2200, L400.2500, L400.5100, L404.6500 ####[facility] ([facility])[address], [place] [phone] Nivar, MD Calcium mass conc 8.1 mg/dL Low 8.8-10.5 [place] Comment on above: Performed By: #### L 400.0202, L400.0302, L400.2200, L400.2500, L400.5100, L404.6500 ####[facility] ([facility])[address], [place] [phone] Nivar, MD Chloride molar conc 114 mmol/L High 101-111 [place] Comment on above: Performed By: #### L 400.0202, L400.0302, L400.2200, L400.2500, L400.5100, L404.6500 ####[facility] ([facility])[address] [phone] Nivar, MD CO2 molar conc 20 mmol/L Low 21-32 [place] Comment on above: Performed By: #### L 400.0202, L400.0302, L400.2200, L400.2500, L400.5100, L404.6500 ####[facility] ([facility])[address], [place] [phone] Nivar, MD Creatinine mass conc 1.21 mg/dL Normal 0.70-1.30 [place] Comment on above: Performed By: #### L 400.0202, L400.0302, L400.2200, L400.2500, L400.5100, L404.6500 ####[facility] ([facility])[address], [place] [phone] Nivar, MD GFR/1.73 sq M predicted among non-blacks MDRD vol rate/area (S/P/Bld) mL/min/{1.73_m2} Normal [place] Comment on above: Result Comment: Water Quality Manager usha Kidney Disease stages by NKDFStage eGFR I >90 II 60-89 III 30-59 IV 15-29 V <15 or dialysisAGE(years) AVERAGE GFR 50-59 93 ml/min/1.73 square metersNote:This result is normalized to 1.73 square meter body surface area. Height and weight are not factored. Performed By: #### L 400.0202, L400.0302, L400.2200, L400.2500, L400.5100, L404.6500 ####[facility] ([facility])[address] [place] [phone] Nivar, MD Glucose mass conc 107 mg/dL Normal 70-110 [place] Comment on above: Result Comment: *Thi s reference range applies to fasting specimens only. Performed By: #### L 400.0202, L400.0302, L400.2200, L400.2500, L400.5100, L404.6500 ####[facility] ([facility])[address] [place] [phone] Nivar, MD Potassium molar conc 4.3 mmol/L Normal 3.6-5.0 [place] Comment on above: Performed By: #### L 400.0202, L400.0302, L400.2200, L400.2500, L400.5100, L404.6500 ####[facility] ([facility])[address] [place] [phone] Nivar, MD Sodium molar conc 142 mmol/L Normal 135-145 [place] Comment on above: Performed By: #### L 400.0202, L400.0302, L400.2200, L400.2500, L400.5100, L404.6500 ####[facility] ([facility])[address] [place] [phone] Nivar, MD Urea nitrogen mass conc 35 mg/dL High 7-20 [place] Comment on above: Performed By: #### L 400.0202, L400.0302, L400.2200, L400.2500, L400.5100, L404.6500 ####[facility] ([facility])[address] [place] [phone] Nivar, MD CBC with Differentialon 10-2 Abs Baso Count 100 /cmm Normal 0-200 [place] Comment on above: Performed By: #### L 400.0202, L400.0302, L400.2200, L400.2500, L400.5100, L404.6500 ####[facility] ([facility])[address], [place] [phone] Nivar, MD Abs Eos Count 700 /cmm High 0-500 [place] Comment on above: Performed By: #### L 400.0202, L400.0302, L400.2200, L400.2500, L400.5100, L404.6500 ####[facility] ([facility])[address], [place] [phone] Nivar, MD Abs [place] Count 1000 /cmm High 0-800 [place] Comment on above: Performed By: #### L 400.0202, L400.0302, L400.2200, L400.2500, L400.5100, L404.6500 ####[facility] ([facility])[address], [place] [phone] Nivar, MD Abs Neut Count 71217 /cmm High 0635-0733 [place] Comment on above: Performed By: #### L 400.0202, L400.0302, L400.2200, L400.2500, L400.5100, L404.6500 ####[facility] ([facility])[address], [place] [phone] Nivar, MD Basophils Auto #/vol (Bld) 0.5 % Normal 0-2 [place] Comment on above: Performed By: #### L 400.0202, L400.0302, L400.2200, L400.2500, L400.5100, L404.6500 ####[facility] ([facility])[address], [place] [phone] Nivar, MD EOS-Auto Diff 3.5 % Normal 0-6 [place] Comment on above: Performed By: #### L 400.0202, L400.0302, L400.2200, L400.2500, L400.5100, L404.6500 ####[facility] ([facility])[address] [place] [phone] Nivar, MD Erythrocyte distribution width Auto Ratio (RBC) 17.0 % High 12.0-16.0 [place] Comment on above: Performed By: #### L 400.0202, L400.0302, L400.2200, L400.2500, L400.5100, L404.6500 ####[facility] ([facility])[address] [place] [phone] Nivar, MD Hematocrit Auto Volume Fraction (Bld) 27.2 % Low 40.0-49.0 [place] Comment on above: Performed By: #### L 400.0202, L400.0302, L400.2200, L400.2500, L400.5100, L404.6500 ####[facility] ([facility])[address] [place] [phone] Nivar, MD Hemoglobin mass conc (Bld) 8.2 g/dL Low 13.5-16.5 [place] Comment on above: Performed By: #### L 400.0202, L400.0302, L400.2200, L400.2500, L400.5100, L404.6500 ####[facility] ([facility])[address], [place] [phone] Nivar, MD Lymphocytes Auto #/vol (Bld) 3600 /cmm Normal 3788-8271 [place] Comment on above: Performed By: #### L 400.0202, L400.0302, L400.2200, L400.2500, L400.5100, L404.6500 ####[facility] ([facility])[address], [place] [phone] Nivar, MD Lymphocytes/100 WBC Auto (Bld) 17.6 % Normal 15-45 [place] Comment on above: Performed By: #### L 400.0202, L400.0302, L400.2200, L400.2500, L400.5100, L404.6500 ####[facility] ([facility])[address], [place] [phone] Nivar, MD MCH Auto Entitic mass (RBC) 28.4 pg Normal 27.5-33.0 [place] Comment on above: Performed By: #### L 400.0202, L400.0302, L400.2200, L400.2500, L400.5100, L404.6500 ####[facility] ([facility])[address] [place] [phone] Nivar, MD MCHC Auto mass conc (RBC) 30.3 g/dL Low 33.0-36.0 [place] Comment on above: Performed By: #### L 400.0202, L400.0302, L400.2200, L400.2500, L400.5100, L404.6500 ####[facility] ([facility])[address], [place] [phone] Nivar, MD MCV Auto Entitic volume (RBC) 93.9 CU SOPHIE Normal 80-97 [place] Comment on above: Performed By: #### L 400.0202, L400.0302, L400.2200, L400.2500, L400.5100, L404.6500 ####[facility] ([facility])[address], [place] [phone] Nivar, MD [place]- Auto Diff 4.9 % Normal 2-10 [place] Comment on above: Performed By: #### L 400.0202, L400.0302, L400.2200, L400.2500, L400.5100, L404.6500 ####[facility] ([facility])[address] [phone] Nivar, MD Neut-Auto Diff 73.5 % High 40-70 [place] Comment on above: Performed By: #### L 400.0202, L400.0302, L400.2200, L400.2500, L400.5100, L404.6500 ####[facility] ([facility])[address] [place] [phone] Nivar, MD NRBC-Auto 0.1 /100 WBC Normal <1 [place] Comment on above: Performed By: #### L 400.0202, L400.0302, L400.2200, L400.2500, L400.5100, L404.6500 ####[facility] ([facility])[address] [phone] Nivar, MD Platelets Auto #/vol (Bld) 377 th/cmm Normal 150-400 [place] Comment on above: Performed By: #### L 400.0202, L400.0302, L400.2200, L400.2500, L400.5100, L404.6500 ####[facility] ([facility])[address] [phone] Nivar, MD RBC Auto #/vol (Bld) 2.90 mil/cmm Low 4.50-6.00 [facility] Comment on above: Performed By: #### L 400.0202, L400.0302, L400.2200, L400.2500, L400.5100, L404.6500 ####[facility] ([facility])[address] [phone] Nivar, MD WBC Auto #/vol (Bld) 20.5 th/cmm High 4.4-10.5 [facility] Comment on above: Performed By: #### L 400.0202, L400.0302, L400.2200, L400.2500, L400.5100, L404.6500 ####[facility] ([facility])[address] [place] [phone] Nivar, MD Clostridium difficile by PCR on 02-22-2018 Clostridium difficile by PCR Negative Normal Negative [place] Comment on above: Result Comment: Meth odology: Nucleic Acid Amplification (Polymerase Chain Reaction,PCR)Positive C. Diffs should not be retested for 7 days.No testing on formed stools.For questions, please contact Microbiology lab at [phone].Performance characteristics of this assay have not beenevaluated in patients under 18 years of age. Significanceof positive results in children younger than 1 year isquestionable since they may be asymptomatically colonized. Performed By: #### L 400.0202, L400.0302, L400.2200, L400.2500, L400.5100, L404.6500 ####[facility] ([facility])[address] [place], [place] [phone] Nivar, MD Hepatic Function Panel (Live r)on 02-22-2018 Albumin mass conc 3.1 g/dL Low 3.5-5.0 [place] Comment on above: Performed By: #### L 400.0202, L400.0302, L400.2200, L400.2500, L400.5100, L404.6500 ####[facility] ([facility])[address], [place] [phone] Nivar, MD Alk Phos 167 IU/L High 41-137 [place] Comment on above: Performed By: #### L 400.0202, L400.0302, L400.2200, L400.2500, L400.5100, L404.6500 ####[facility] ([facility])[address], [place] [phone] Nivar, MD ALT/SGPT 31 IU/L Normal 10-40 [place] Comment on above: Performed By: #### L 400.0202, L400.0302, L400.2200, L400.2500, L400.5100, L404.6500 ####[facility] ([facility])[address], [place] [phone] Nivar, MD AST/SGOT 32 IU/L Normal 15-41 [place] Comment on above: Performed By: #### L 400.0202, L400.0302, L400.2200, L400.2500, L400.5100, L404.6500 ####[facility] ([facility])[address] [place], [place] [phone] Nivar, MD Bili,Direct 0.1 mg/dL Normal 0.1-0.2 [place] Comment on above: Performed By: #### L 400.0202, L400.0302, L400.2200, L400.2500, L400.5100, L404.6500 ####[facility] ([facility])[address], [place] [phone] Nivar, MD Bili,Total 0.4 mg/dL Normal 0.2-1.0 [place] Comment on above: Performed By: #### L 400.0202, L400.0302, L400.2200, L400.2500, L400.5100, L404.6500 ####[facility] ([facility])[address], [place] [phone] Nivar, MD Protein mass conc 7.6 g/dL Normal 6.2-8.0 [place] Comment on above: Performed By: #### L 400.0202, L400.0302, L400.2200, L400.2500, L400.5100, L404.6500 ####[facility] ([facility])[address] [place], [place] [phone] Nivar, MD Magnesiumon 02-22-2018 Magnesium mass conc 1.6 mg/dL Low 1.8-2.5 [place] Comment on above: Performed By: #### L 400.0202, L400.0302, L400.2200, L400.2500, L400.5100, L404.6500 ####[facility] ([facility])[address], [place] [phone] Nivar, MD Phosphoruson 02-22-2018 Phosphate mass conc 1.8 mg/dL Low 2.4-4.7 [place] Comment on above: Performed By: #### L 400.0202, L400.0302, L400.2200, L400.2500, L400.5100, L404.6500 ####[facility] ([facility])[address], [place] [phone] Nivar, MD Prealbuminon 02-22-2018 Prealbumin mass conc 11.7 mg/dL Low 16.0-38.0 [place] Comment on above: Performed By: #### L 400.0202, L400.0302, L400.2200, L400.2500, L400.5100, L404.6500 ####[facility] ([facility])[address] [place] [phone] Nivar, MD Triglycerideson 02-22-2018 Triglyceride mass conc 169 mg/dL High <150 [place] Comment on above: Performed By: #### L 400.0202, L400.0302, L400.2200, L400.2500, L400.5100, L404.6500 ####[facility] ([facility])[address] [phone] Nivar, MD Basic Metabolic,Non-Fastingo n 02-21-2018 Anion gap 3 molar conc 9 mmol/L Normal 4-12 [place] Comment on above: Performed By: #### L 400.0202, L400.0302, L400.2200, L400.2500, L400.5100, L404.6500 ####[facility] ([facility])[address] [place] [phone] Nivar, MD Calcium mass conc 7.6 mg/dL Low 8.8-10.5 [place] Comment on above: Performed By: #### L 400.0202, L400.0302, L400.2200, L400.2500, L400.5100, L404.6500 ####Main [facility] ([facility])[address] [place] [phone] Nivar, MD Chloride molar conc 112 mmol/L High 101-111 [place] Comment on above: Performed By: #### L 400.0202, L400.0302, L400.2200, L400.2500, L400.5100, L404.6500 ####Main [facility] ([facility])[address] [place] [phone] Nivar, MD CO2 molar conc 20 mmol/L Low 21-32 [place] Comment on above: Performed By: #### L 400.0202, L400.0302, L400.2200, L400.2500, L400.5100, L404.6500 ####[facility] ([facility])[address], [place] [phone] Nivar, MD Creatinine mass conc 1.48 mg/dL High 0.70-1.30 [place] Comment on above: Performed By: #### L 400.0202, L400.0302, L400.2200, L400.2500, L400.5100, L404.6500 ####[facility] ([facility])[address] [phone] Nivar, MD GFR/1.73 sq M predicted among non-blacks MDRD vol rate/area (S/P/Bld) 59 mL/min/{1.73_m2} Low [place] Comment on above: Result Comment: Water Quality Manager usha Kidney Disease stages by NKDFStage eGFR I >90 II 60-89 III 30-59 IV 15-29 V <15 or dialysisAGE(years) AVERAGE GFR 50-59 93 ml/min/1.73 square metersNote:This result is normalized to 1.73 square meter body surface area. Height and weight are not factored. Performed By: #### L 400.0202, L400.0302, L400.2200, L400.2500, L400.5100, L404.6500 ####Main Laboratory ([facility])[address] [place], [place] [phone] Nivar, MD Glucose mass conc 120 mg/dL High 70-110 [place] Comment on above: Performed By: #### L 400.0202, L400.0302, L400.2200, L400.2500, L400.5100, L404.6500 ####[facility] ([facility])[address] [place], [place] [phone] Nivar, MD Potassium molar conc 3.6 mmol/L Normal 3.6-5.0 [place] Comment on above: Performed By: #### L 400.0202, L400.0302, L400.2200, L400.2500, L400.5100, L404.6500 ####[facility] ([facility])[address], [place] [phone] Nivar, MD Sodium molar conc 141 mmol/L Normal 135-145 [place] Comment on above: Performed By: #### L 400.0202, L400.0302, L400.2200, L400.2500, L400.5100, L404.6500 ####[facility] ([facility])[address], [place] [phone] Nivar, MD Urea nitrogen mass conc 39 mg/dL High 7-20 [place] Comment on above: Performed By: #### L 400.0202, L400.0302, L400.2200, L400.2500, L400.5100, L404.6500 ####[facility] ([facility])[address] [place], [place] [phone] Nivar, MD Basic Metabolic,Non-Fastingo n 02-20-2018 Anion gap 3 molar conc 7 mmol/L Normal 4-12 [place] Comment on above: Performed By: #### L 400.0202, L400.0302, L400.2200, L400.2500, L400.5100, L404.6500 ####[facility] ([facility])[address], [place] [phone] Nivar, MD Calcium mass conc 7.6 mg/dL Low 8.8-10.5 [place] Comment on above: Performed By: #### L 400.0202, L400.0302, L400.2200, L400.2500, L400.5100, L404.6500 ####[facility] ([facility])[address], [place] [phone] Nivar, MD Chloride molar conc 118 mmol/L High 101-111 [place] Comment on above: Performed By: #### L 400.0202, L400.0302, L400.2200, L400.2500, L400.5100, L404.6500 ####[facility] ([facility])[address], [place] [phone] Nivar, MD CO2 molar conc 20 mmol/L Low 21-32 [place] Comment on above: Performed By: #### L 400.0202, L400.0302, L400.2200, L400.2500, L400.5100, L404.6500 ####[facility] ([facility])[address] [place] [phone] Nivar, MD Creatinine mass conc 1.54 mg/dL High 0.70-1.30 [place] Comment on above: Performed By: #### L 400.0202, L400.0302, L400.2200, L400.2500, L400.5100, L404.6500 ####[facility] ([facility])[address] [place] [phone] Nivar, MD GFR/1.73 sq M predicted among non-blacks MDRD vol rate/area (S/P/Bld) 57 mL/min/{1.73_m2} Low [place] Comment on above: Result Comment: Water Quality Manager usha Kidney Disease stages by NKDFStage eGFR I >90 II 60-89 III 30-59 IV 15-29 V <15 or dialysisAGE(years) AVERAGE GFR 50-59 93 ml/min/1.73 square metersNote:This result is normalized to 1.73 square meter body surface area. Height and weight are not factored. Performed By: #### L 400.0202, L400.0302, L400.2200, L400.2500, L400.5100, L404.6500 ####[facility] ([facility])[address] [place] [phone] Nivar, MD Glucose mass conc 121 mg/dL High 70-110 [place] Comment on above: Performed By: #### L 400.0202, L400.0302, L400.2200, L400.2500, L400.5100, L404.6500 ####[facility] ([facility])[address] [place] [phone] Nivar, MD Potassium molar conc 3.4 mmol/L Low 3.6-5.0 [place] Comment on above: Performed By: #### L 400.0202, L400.0302, L400.2200, L400.2500, L400.5100, L404.6500 ####[facility] ([facility])[address], [place] [phone] Nivar, MD Sodium molar conc 145 mmol/L Normal 135-145 [place] Comment on above: Result Comment: Delt a: 150 on 02/19/18-0414 Performed By: #### L 400.0202, L400.0302, L400.2200, L400.2500, L400.5100, L404.6500 ####[facility] ([facility])[address], [place] [phone] Nivar, MD Urea nitrogen mass conc 48 mg/dL High 7-20 [place] Comment on above: Performed By: #### L 400.0202, L400.0302, L400.2200, L400.2500, L400.5100, L404.6500 ####[facility] ([facility])[address], [place] [phone] Nivar, MD Basic Metabolic,Non-Fastingo n 02-19-2018 Anion gap 3 molar conc 11 mmol/L Normal 4-12 [place] Comment on above: Performed By: #### L 400.0202, L400.0302, L400.2200, L400.2500, L400.5100, L404.6500 ####[facility] ([facility])[address], [place] [phone] Nivar, MD Calcium mass conc 8.4 mg/dL Low 8.8-10.5 [place] Comment on above: Performed By: #### L 400.0202, L400.0302, L400.2200, L400.2500, L400.5100, L404.6500 ####[facility] ([facility])[address] [phone] Nivar, MD Chloride molar conc 119 mmol/L High 101-111 [place] Comment on above: Performed By: #### L 400.0202, L400.0302, L400.2200, L400.2500, L400.5100, L404.6500 ####[facility] ([facility])[address], [place] [phone] Nivar, MD CO2 molar conc 20 mmol/L Low 21-32 [place] Comment on above: Performed By: #### L 400.0202, L400.0302, L400.2200, L400.2500, L400.5100, L404.6500 ####[facility] ([facility])[address], [place] [phone] Nivar, MD Creatinine mass conc 1.85 mg/dL High 0.70-1.30 [place] Comment on above: Performed By: #### L 400.0202, L400.0302, L400.2200, L400.2500, L400.5100, L404.6500 ####[facility] ([facility])[address] [phone] Nivar, MD GFR/1.73 sq M predicted among non-blacks MDRD vol rate/area (S/P/Bld) 46 mL/min/{1.73_m2} Low [place] Comment on above: Result Comment: Water Quality Manager usha Kidney Disease stages by NKDFStage eGFR I >90 II 60-89 III 30-59 IV 15-29 V <15 or dialysisAGE(years) AVERAGE GFR 50-59 93 ml/min/1.73 square metersNote:This result is normalized to 1.73 square meter body surface area. Height and weight are not factored. Performed By: #### L 400.0202, L400.0302, L400.2200, L400.2500, L400.5100, L404.6500 ####[facility] ([facility])[address] [place] [phone] Nivar, MD Glucose mass conc 89 mg/dL Normal 70-110 [place] Comment on above: Result Comment: *Thi s reference range applies to fasting specimens only. Performed By: #### L 400.0202, L400.0302, L400.2200, L400.2500, L400.5100, L404.6500 ####[facility] ([facility])[address] [place] [phone] Nivar, MD Potassium molar conc 4.1 mmol/L Normal 3.6-5.0 [place] Comment on above: Performed By: #### L 400.0202, L400.0302, L400.2200, L400.2500, L400.5100, L404.6500 ####[facility] ([facility])[address] [place] [phone] Nivar, MD Sodium molar conc 150 mmol/L High 135-145 [place] Comment on above: Result Comment: Delt a: 145 on 02/18/18 Performed By: #### L 400.0202, L400.0302, L400.2200, L400.2500, L400.5100, L404.6500 ####[facility] ([facility])[address] [place] [phone] Nivar, MD Urea nitrogen mass conc 70 mg/dL High 7-20 [place] Comment on above: Performed By: #### L 400.0202, L400.0302, L400.2200, L400.2500, L400.5100, L404.6500 ####[facility] ([facility])[address] [place] [phone] Nivar, MD Cult,Bloodon 02-19-2018 Cult,Blood Specimen Description .BLOOD Special Requests R FOREARM 6ML Culture NO GROWTH 6 DAYS Report Status FINAL 02/19/2018 Normal [facility] Comment on above: Performed By: #### E RTPF, CONNER, LIP, LIVP, TEGCR ####[facility] [address] [place] [address] Cult,Blood Specimen Description .BLOOD Special Requests RT HAND 1ML Culture NO GROWTH 6 DAYS Report Status FINAL 02/19/2018 Normal [facility] Comment on above: Performed By: #### E RTPF, CONNER, LIP, LIVP, TEGCR ####[facility] [address] [place], [place] [id number] XR CHEST PORTABLEon 02-20-20 XR CHEST PORTABLE PROCEDURE: XR CHEST PORTABLECLINICAL INFORMATION: picc line placement, COMPARISON: No prior study.TECHNIQUE: A single mobile view of the chest was obtained.IMPRESSION: 1. Normal heart size. Tracheostomy tube. Mild atelectasis/pneumonia right perihilar region and both lung bases. No effusion.2. Right arm PICC line has been inserted, catheter tip at cavoatrial junction.This report has been created using voice recognition software. It may contain minor errors which are inherent in voice recognition technology.Final report electronically signed by Dr. Herminio Cardenas on 02/19/2018 1:24 PMInterpreted by:NADEGE Ellisigned by:Herminio Cardenas MD02/19/18inal result Normal [facility] Basic Metabolic,Non-Fastingo n 02-18-2018 Anion gap 3 molar conc 9 mmol/L Normal 4-12 [place] Comment on above: Performed By: #### L 400.0202, L400.0302, L400.2200, L400.2500, L400.5100, L404.6500 ####[facility] ([facility])[address], [place] [phone] Nivar, MD Calcium mass conc 8.3 mg/dL Low 8.8-10.5 [place] Comment on above: Performed By: #### L 400.0202, L400.0302, L400.2200, L400.2500, L400.5100, L404.6500 ####[facility] ([facility])[address] [place] [phone] Nivar, MD Chloride molar conc 113 mmol/L High 101-111 [place] Comment on above: Performed By: #### L 400.0202, L400.0302, L400.2200, L400.2500, L400.5100, L404.6500 ####[facility] ([facility])[address] [place] [phone] Nivar, MD CO2 molar conc 23 mmol/L Normal 21-32 [place] Comment on above: Performed By: #### L 400.0202, L400.0302, L400.2200, L400.2500, L400.5100, L404.6500 ####[facility] ([facility])[address] [place] [phone] Nivar, MD Creatinine mass conc 1.90 mg/dL High 0.70-1.30 [place] Comment on above: Performed By: #### L 400.0202, L400.0302, L400.2200, L400.2500, L400.5100, L404.6500 ####[facility] ([facility])[address], [place] [phone] Nivar, MD GFR/1.73 sq M predicted among non-blacks MDRD vol rate/area (S/P/Bld) 45 mL/min/{1.73_m2} Low [place] Comment on above: Result Comment: Water Quality Manager usha Kidney Disease stages by NKDFStage eGFR I >90 II 60-89 III 30-59 IV 15-29 V <15 or dialysisAGE(years) AVERAGE GFR 50-59 93 ml/min/1.73 square metersNote:This result is normalized to 1.73 square meter body surface area. Height and weight are not factored. Performed By: #### L 400.0202, L400.0302, L400.2200, L400.2500, L400.5100, L404.6500 ####[facility] ([facility])[address] [phone] Nivar, MD Glucose mass conc 142 mg/dL High 70-110 [place] Comment on above: Performed By: #### L 400.0202, L400.0302, L400.2200, L400.2500, L400.5100, L404.6500 ####[facility] ([facility])[address] [place] [phone] Nivar, MD Potassium molar conc 3.6 mmol/L Normal 3.6-5.0 [place] Comment on above: Performed By: #### L 400.0202, L400.0302, L400.2200, L400.2500, L400.5100, L404.6500 ####[facility] ([facility])[address] [phone] Nivar, MD Sodium molar conc 145 mmol/L Invalid Interpretation Code 135-145 [place] Comment on above: Result Comment: Delt a: 139 on 02/17/183 Performed By: #### L 400.0202, L400.0302, L400.2200, L400.2500, L400.5100, L404.6500 ####[facility] ([facility])[address] [phone] Nivar, MD Urea nitrogen mass conc 80 mg/dL High 7-20 [place] Comment on above: Performed By: #### L 400.0202, L400.0302, L400.2200, L400.2500, L400.5100, L404.6500 ####[facility] ([facility])[address], [place] [phone] Nivar, MD Hepatic Function Panel (Live r)on 02-18-2018 Albumin mass conc 3.0 g/dL Low 3.5-5.0 [place] Comment on above: Performed By: #### L 400.0202, L400.0302, L400.2200, L400.2500, L400.5100, L404.6500 ####[facility] ([facility])[address], [place] [phone] Nivar, MD Alk Phos 222 IU/L High 41-137 [place] Comment on above: Performed By: #### L 400.0202, L400.0302, L400.2200, L400.2500, L400.5100, L404.6500 ####[facility] ([facility])[address], [place] [phone] Nivar, MD ALT/SGPT 52 IU/L High 10-40 [place] Comment on above: Performed By: #### L 400.0202, L400.0302, L400.2200, L400.2500, L400.5100, L404.6500 ####[facility] ([facility])[address], [place] [phone] Nivar, MD AST/SGOT 39 IU/L Normal 15-41 [place] Comment on above: Performed By: #### L 400.0202, L400.0302, L400.2200, L400.2500, L400.5100, L404.6500 ####[facility] ([facility])[address], [place] [phone] Nivar, MD Bili,Direct 0.3 mg/dL High 0.1-0.2 [place] Comment on above: Performed By: #### L 400.0202, L400.0302, L400.2200, L400.2500, L400.5100, L404.6500 ####[facility] ([facility])[address] [place] [phone] Nivar, MD Bili,Total 0.3 mg/dL Normal 0.2-1.0 [place] Comment on above: Result Comment: Delt a: 1.3 on 02/16/18 Performed By: #### L 400.0202, L400.0302, L400.2200, L400.2500, L400.5100, L404.6500 ####[facility] ([facility])[address], [place] [phone] Nivar, MD Protein mass conc 7.9 g/dL Normal 6.2-8.0 [place] Comment on above: Performed By: #### L 400.0202, L400.0302, L400.2200, L400.2500, L400.5100, L404.6500 ####[facility] ([facility])[address] [place] [phone] Nivar, MD Ionized Calciumon 02-18-2018 Ionized Calcium 1.24 mmol/L Normal 1.15-1.29 [place] Comment on above: Performed By: #### L 400.0202, L400.0302, L400.2200, L400.2500, L400.5100, L404.6500 ####[facility] ([facility])[address], [place] [phone] Nivar, MD Magnesiumon 02-18-2018 Magnesium mass conc 2.0 mg/dL Normal 1.8-2.5 [place] Comment on above: Performed By: #### L 400.0202, L400.0302, L400.2200, L400.2500, L400.5100, L404.6500 ####[facility] ([facility])[address], [place] [phone] Nivar, MD Phosphoruson 02-18-2018 Phosphate mass conc 2.9 mg/dL Normal 2.4-4.7 [place] Comment on above: Performed By: #### L 400.0202, L400.0302, L400.2200, L400.2500, L400.5100, L404.6500 ####[facility] ([facility])[address] [place] [phone] Nivar, MD Sputum culture/ smearon 02-01 INR Coag RelTime (Bld) Gram stain result Moderate Segmented WBC's seen Rare Gram positive bacilli Rare Gram positive cocci in pairs and chains Rare Gram positive cocci in clusters ORGANISM 1: Klebsiella pneumoniaeAmount of growth ManyComments Normal pharyngeal chet also isolated Klebsiella pneumoniae: REACTION Amoxacillin/K Clavulanate >16/8 R Ampicillin/Sulbactam >16/8 R Cefazolin >16 R Cefepime <=4 S Cefotaxime <=2 S Ceftazidime 4 S Ceftriaxone <=8 S Cefuroxime >16 R Ciprofloxacin <=1 S Ertapenem <=2 S Gentamicin <=4 S Imipenem <=1 S Meropenem <=1 S Levofloxacin <=2 S Pipercillin/Tazobactam <=16 S Tetracycline <=4 S Ticarcillin/K Clavulanate >64 R Trimethoprim/Sulfamethoxazole <=2/38 S Normal [place] Comment on above: Performed By: #### L 400.0202, L400.0302, L400.2200, L400.2500, L400.5100, L404.6500 ####[facility] ([facility])[address] [place] [phone] Nivar, MD Basic Metabolic,Non-Fastingo n 02-17-2018 Urea nitrogen mass conc 102 mg/dL High 7-20 [place] Comment on above: Performed By: #### L 400.0152, L400.2200, L400.5100 ####[facility] ([facility])[address] [phone] Nivar, MD Anion gap 3 molar conc 12 mmol/L Normal 4-12 [place] Comment on above: Performed By: #### L 400.0152, L400.2200, L400.5100 ####[facility] ([facility])[address] [phone] Nivar, MD Calcium mass conc 7.9 mg/dL Low 8.8-10.5 [place] Comment on above: Performed By: #### L 400.0152, L400.2200, L400.5100 ####[facility] ([facility])[address] [phone] Nivar, MD Chloride molar conc 105 mmol/L Normal 101-111 [place] Comment on above: Performed By: #### L 400.0152, L400.2200, L400.5100 ####[facility] ([facility])[address] [phone] Nivar, MD CO2 molar conc 22 mmol/L Normal 21-32 [place] Comment on above: Performed By: #### L 400.0152, L400.2200, L400.5100 ####[facility] ([facility])[address] [phone] Nivar, MD Creatinine mass conc 2.19 mg/dL High 0.70-1.30 [place] Comment on above: Performed By: #### L 400.0152, L400.2200, L400.5100 ####[facility] ([facility])[address] [phone] Nivar, MD GFR/1.73 sq M predicted among non-blacks MDRD vol rate/area (S/P/Bld) 38 mL/min/{1.73_m2} Low [place] Comment on above: Result Comment: Water Quality Manager usha Kidney Disease stages by NKDFStage eGFR I >90 II 60-89 III 30-59 IV 15-29 V <15 or dialysisAGE(years) AVERAGE GFR 50-59 93 ml/min/1.73 square metersNote:This result is normalized to 1.73 square meter body surface area. Height and weight are not factored. Performed By: #### L 400.0152, L400.2200, L400.5100 ####[facility] ([facility])[address] [phone] Nivar, MD Glucose mass conc 150 mg/dL High 70-110 [place] Comment on above: Performed By: #### L 400.0152, L400.2200, L400.5100 ####[facility] ([facility])[address] [phone] Nivar, MD Potassium molar conc 3.2 mmol/L Low 3.6-5.0 [place] Comment on above: Performed By: #### L 400.0152, L400.2200, L400.5100 ####[facility] ([facility])[address] [phone] Nivar, MD Sodium molar conc 139 mmol/L Normal 135-145 [place] Comment on above: Performed By: #### L 400.0152, L400.2200, L400.5100 ####[facility] ([facility])[address] [phone] Nivar, MD Cult,Bloodon 02-17-2018 Cult,Blood Specimen Description .BLOOD Special Requests LAC 0.02 ML Culture NO GROWTH 6 DAYS Report Status FINAL 02/17/2018 Normal [facility] Comment on above: Performed By: #### E RTPF, CONNER, LIP, LIVP, TEGCR ####[facility] [address] [place], [place] 4941208 Cult,Blood Specimen Description .BLOOD Special Requests RAC 0.01 ML Culture NO GROWTH 6 DAYS Report Status FINAL 02/17/2018 Normal [facility] Comment on above: Performed By: #### E RTPF, CONNER, LIP, LIVP, TEGCR ####[facility] [address] [place] [address] MRSA screen, nasalon 018 MRSA screen, nasal No growth of MRSA. Normal [place] Comment on above: Performed By: #### L 400.0202, L400.0302, L400.2200, L400.2500, L400.5100, L404.6500 ####[facility] ([facility])[address] [phone] Nivar, MD Magnesiumon 02-17-2018 Magnesium mass conc 2.1 mg/dL Normal 1.8-2.5 [place] Comment on above: Performed By: #### L 400.0152, L400.2200, L400.5100 ####[facility] ([facility])[address] [phone] Nivar, MD Phosphoruson 02-17-2018 Phosphate mass conc 3.6 mg/dL Normal 2.4-4.7 [place] Comment on above: Performed By: #### L 400.0152, L400.2200, L400.5100 ####[facility] ([facility])[address], [place] [phone] Nivar, MD VRE screen, fecon 02-17-2018 VRE screen, fec No growth of Vancomy get Resistant Enterococcus (VRE). Normal [place] Comment on above: Performed By: #### L 400.0202, L400.0302, L400.2200, L400.2500, L400.5100, L404.6500 ####[facility] ([facility])[address] [place] [phone] Nivar, MD Basic Metabolic Panel,Fastin sabas 02-16-2018 Urea nitrogen mass conc 105 mg/dL High 7-20 [place] Comment on above: Performed By: #### L 400.0202, L400.0302, L400.2200, L400.2500, L400.5100, L404.6500 ####[facility] ([facility])[address], [place] [phone] Nivar, MD Anion gap 3 molar conc 14 mmol/L High 4-12 [place] Comment on above: Performed By: #### L 400.0202, L400.0302, L400.2200, L400.2500, L400.5100, L404.6500 ####[facility] ([facility])[address], [place] [phone] Nivar, MD Calcium mass conc 8.7 mg/dL Low 8.8-10.5 [place] Comment on above: Performed By: #### L 400.0202, L400.0302, L400.2200, L400.2500, L400.5100, L404.6500 ####[facility] ([facility])[address] [place] [phone] Nivar, MD Chloride molar conc 101 mmol/L Normal 101-111 [place] Comment on above: Performed By: #### L 400.0202, L400.0302, L400.2200, L400.2500, L400.5100, L404.6500 ####[facility] ([facility])[address], [place] [phone] Nivar, MD CO2 molar conc 26 mmol/L Normal 21-32 [place] Comment on above: Performed By: #### L 400.0202, L400.0302, L400.2200, L400.2500, L400.5100, L404.6500 ####[facility] ([facility])[address] [place] [phone] Nivar, MD Creatinine mass conc 2.40 mg/dL High 0.70-1.30 [place] Comment on above: Performed By: #### L 400.0202, L400.0302, L400.2200, L400.2500, L400.5100, L404.6500 ####Main Laboratory ([facility])[address] [place] [phone] Nivar, MD GFR/1.73 sq M predicted among non-blacks MDRD vol rate/area (S/P/Bld) 28 mL/min/{1.73_m2} Low [place] Comment on above: Result Comment: Water Quality Manager usha Kidney Disease stages by NKDFStage eGFR I >90 II 60-89 III 30-59 IV 15-29 V <15 or dialysisAGE(years) AVERAGE GFR 50-59 93 ml/min/1.73 square metersNote:This result is normalized to 1.73 square meter body surface area. Height and weight are not factored. Performed By: #### L 400.0202, L400.0302, L400.2200, L400.2500, L400.5100, L404.6500 ####Main Laboratory ([facility])[address] [place] [phone] Nivar, MD Glucose mass conc 168 mg/dL High 70-110 [place] Comment on above: Performed By: #### L 400.0202, L400.0302, L400.2200, L400.2500, L400.5100, L404.6500 ####Main Laboratory ([facility])[address], [place] [phone] Nivar, MD Potassium molar conc 3.4 mmol/L Low 3.6-5.0 [place] Comment on above: Performed By: #### L 400.0202, L400.0302, L400.2200, L400.2500, L400.5100, L404.6500 ####Main Laboratory ([facility])[address]itaSPECULATOR, [place] [phone] Nivar, MD Sodium molar conc 141 mmol/L Normal 135-145 [place] Comment on above: Performed By: #### L 400.0202, L400.0302, L400.2200, L400.2500, L400.5100, L404.6500 ####Main Laboratory ([facility])[address] [phone] Nivar, MD CBC with Differentialon 02-01 Abs Baso Count 100 /cmm Normal 0-200 [place] Comment on above: Performed By: #### L 100.0000 ####[facility] ([facility])[address] [phone] Nivar, MD Abs Eos Count 200 /cmm Normal 0-500 [place] Comment on above: Performed By: #### L 100.0000 ####[facility] ([facility])[address] [phone] Nivar, MD Abs [place] Count 1700 /cmm High 0-800 [place] Comment on above: Performed By: #### L 100.0000 ####[facility] ([facility])[address] [phone] Nivar, MD Abs Neut Count 52070 /cmm High 5077-7881 [place] Comment on above: Performed By: #### L 100.0000 ####[facility] ([facility])[address], [place] [phone] Nivar, MD Basophils Auto #/vol (Bld) 0.4 % Normal 0-2 [place] Comment on above: Performed By: #### L 100.0000 ####[facility] ([facility])[address], [place] [phone] Nivar, MD EOS-Auto Diff 0.6 % Normal 0-6 [place] Comment on above: Performed By: #### L 100.0000 ####[facility] ([facility])[address] [place], [place] [phone] Nivar, MD Erythrocyte distribution width Auto Ratio (RBC) 16.9 % High 12.0-16.0 [place] Comment on above: Performed By: #### L 100.0000 ####[facility] ([facility])[address] [place] [phone] Nivar, MD Hematocrit Auto Volume Fraction (Bld) 26.1 % Low 40.0-49.0 [place] Comment on above: Performed By: #### L 100.0000 ####[facility] ([facility])[address] [place] [phone] Nivar, MD Hemoglobin mass conc (Bld) 8.3 g/dL Low 13.5-16.5 [place] Comment on above: Performed By: #### L 100.0000 ####[facility] ([facility])[address], [place] [phone] Nivar, MD Lymphocytes Auto #/vol (Bld) 2000 /cmm Normal 8299-6966 [place] Comment on above: Performed By: #### L 100.0000 ####[facility] ([facility])[address], [place] [phone] Nivar, MD Lymphocytes/100 WBC Auto (Bld) 7.0 % Low 15-45 [place] Comment on above: Performed By: #### L 100.0000 ####[facility] ([facility])[address] [phone] Nivar, MD MCH Auto Entitic mass (RBC) 29.1 pg Normal 27.5-33.0 [place] Comment on above: Performed By: #### L 100.0000 ####[facility] ([facility])[address] [phone] Nivar, MD MCHC Auto mass conc (RBC) 31.8 g/dL Low 33.0-36.0 [place] Comment on above: Performed By: #### L 100.0000 ####[facility] ([facility])[address] [phone] Nivar, MD MCV Auto Entitic volume (RBC) 91.5 CU SOPHIE Normal 80-97 [place] Comment on above: Performed By: #### L 100.0000 ####[facility] ([facility])[address] [phone] Nivar, MD [place]- Auto Diff 5.7 % Normal 2-10 [place] Comment on above: Performed By: #### L 100.0000 ####[facility] ([facility])[address] [phone] Nivar, MD Neut-Auto Diff 86.3 % High 40-70 [place] Comment on above: Performed By: #### L 100.0000 ####[facility] ([facility])[address] [phone] Nivar, MD NRBC-Auto 0.1 /100 WBC Normal <1 [place] Comment on above: Performed By: #### L 100.0000 ####[facility] ([facility])[address] [phone] Nivar, MD Platelets Auto #/vol (Bld) 516 th/cmm High 150-400 [place] Comment on above: Performed By: #### L 100.0000 ####[facility] ([facility])[address] [place] [phone] Nivar, MD RBC Auto #/vol (Bld) 2.85 mil/cmm Low 4.50-6.00 [facility] Comment on above: Performed By: #### L 100.0000 ####[facility] ([facility])[address] [place] [phone] Nivar, MD WBC Auto #/vol (Bld) 29.1 th/cmm High 4.4-10.5 [facility] Comment on above: Performed By: #### L 100.0000 ####[facility] ([facility])[address] [place], [place] [phone] Nivar, MD Hepatic Function Panel (Live r)on 02-16-2018 Albumin mass conc 3.1 g/dL Low 3.5-5.0 [place] Comment on above: Performed By: #### L 400.0202, L400.0302, L400.2200, L400.2500, L400.5100, L404.6500 ####[facility] ([facility])[address] [place] [phone] Nivar, MD Alk Phos 240 IU/L High 41-137 [place] Comment on above: Performed By: #### L 400.0202, L400.0302, L400.2200, L400.2500, L400.5100, L404.6500 ####[facility] ([facility])[address], [place] [phone] Nivar, MD ALT/SGPT 80 IU/L High 10-40 [place] Comment on above: Performed By: #### L 400.0202, L400.0302, L400.2200, L400.2500, L400.5100, L404.6500 ####[facility] ([facility])[address], [place] [phone] Nivar, MD AST/SGOT 43 IU/L High 15-41 [place] Comment on above: Performed By: #### L 400.0202, L400.0302, L400.2200, L400.2500, L400.5100, L404.6500 ####[facility] ([facility])[address] [place], [place] [phone] Nivar, MD Bili,Direct 0.6 mg/dL High 0.1-0.2 [place] Comment on above: Performed By: #### L 400.0202, L400.0302, L400.2200, L400.2500, L400.5100, L404.6500 ####[facility] ([facility])[address] [place], [place] [phone] Nivar, MD Bili,Total 1.3 mg/dL High 0.2-1.0 [place] Comment on above: Performed By: #### L 400.0202, L400.0302, L400.2200, L400.2500, L400.5100, L404.6500 ####[facility] ([facility])[address] [place], [place] [phone] Nivar, MD Protein mass conc 8.2 g/dL High 6.2-8.0 [place] Comment on above: Performed By: #### L 400.0202, L400.0302, L400.2200, L400.2500, L400.5100, L404.6500 ####[facility] ([facility])[address] [place], [place] [phone] Nivar, MD Magnesiumon 02-16-2018 Magnesium mass conc 2.3 mg/dL Normal 1.8-2.5 [place] Comment on above: Performed By: #### L 400.0202, L400.0302, L400.2200, L400.2500, L400.5100, L404.6500 ####[facility] ([facility])[address] [place], [place] [phone] Nivar, MD Phosphoruson 02-16-2018 Phosphate mass conc 3.8 mg/dL Normal 2.4-4.7 [place] Comment on above: Performed By: #### L 400.0202, L400.0302, L400.2200, L400.2500, L400.5100, L404.6500 ####[facility] ([facility])[address] [place] [phone] Nivar, MD Prealbuminon 02-16-2018 Prealbumin mass conc 11.4 mg/dL Low 16.0-38.0 [place] Comment on above: Performed By: #### L 400.0202, L400.0302, L400.2200, L400.2500, L400.5100, L404.6500 ####[facility] ([facility])[address], [place] [phone] Nivar, MD Triglycerideson 02-16-2018 Triglyceride mass conc 142 mg/dL Normal <150 [place] Comment on above: Performed By: #### L 400.0202, L400.0302, L400.2200, L400.2500, L400.5100, L404.6500 ####[facility] ([facility])[address] [place] [phone] Nivar, MD XR ABDOMEN G TUBE PLACEMENTo n 02-16-2018 XR ABDOMEN G TUBE PLACEMENT PROCEDURE: XR ABDOMEN G TUBE PLACEMENTCLINICAL INFORMATION: ng placement, .COMPARISON: No prior study.TECHNIQUE: A supine AP view of the abdomen was obtained.FINDINGS: OG catheter is in the left upper quadrant overlying the stomach bubble.Postsurgical clips in the right upper quadrant. Gaseous distention of multiple bowel loops. Lung bases are clear. Degenerative changes lumbar spine.IMPRESSION: OG catheter is in the left upper quadrant overlying the stomach bubble.Gaseous distention of multiple bowel loops. Correlation advised for underlying ileus.This report has been created using voice recognition software. It may contain minor errors which are inherent in voice recognition technology.Final report electronically signed by Dr. Elizabeth Barone on 02/16/2018 3:03 PMInterpreted by:NADEGE Groveigned by:Elizabeth Barone MD02/16/inal result Normal [facility] Basic Metabolic Profon 02-15 Urea nitrogen mass conc 107 mg/dL Critically high 6-20 [facility] Comment on above: Result Comment: Prev ious Alert Value Reported Performed By: #### E RTPF, CONNER, LIP, LIVP, TEGCR ####[address] [id number] (cont.) Normal [facility] Comment on above: Result Comment: Aver age GFR for 50-59 years old: 93 mL/min/1.73sq mChronic Kidney Disease: <60 mL/min/1.73sq mKidney failure: <15 mL/min/1.73sq meGFR calculated using average adult body mass. Additional eGFR calculator available at:http://www.[employer]/multiple_crcl_2012.htm Performed By: #### E RTPF, CONNER, LIP, LIVP, TEGCR ####[facility] [address] [place], [place] 3392008 Anion gap 3 molar conc 19 mmol/L High 9-17 [facility] Comment on above: Performed By: #### E RTPF, CONNER, LIP, LIVP, TEGCR ####[facility] [address] [place], [place] [phone] Calcium mass conc 8.9 mg/dL Normal 8.6-10.4 [facility] Comment on above: Performed By: #### E RTPF, CONNER, LIP, LIVP, TEGCR ####[facility] [address] [place] [address] Chloride molar conc 98 mmol/L Normal 98-107 [facility] Comment on above: Performed By: #### E RTPF, CONNER, LIP, LIVP, TEGCR ####[address] [place] [address] CO2 molar conc 24 mmol/L Normal 20-31 [facility] Comment on above: Performed By: #### E RTPF, CONNER, LIP, LIVP, TEGCR ####[address] [address] Creatinine mass conc 2.51 mg/dL High 0.70-1.20 [facility] Comment on above: Performed By: #### E RTPF, CONNER, LIP, LIVP, TEGCR ####[address] [address] GFR, Amer 32 mL/min Low >60 [facility] Comment on above: Performed By: #### E RTPF, CONNER, LIP, LIVP, TEGCR ####[facility] [place] [address] GFR,non Amer 27 mL/min Low >60 [facility] Comment on above: Performed By: #### E RTPF, CONNER, LIP, LIVP, TEGCR ####[facility] [address] [place] [address] Glucose mass conc 146 mg/dL High 70-99 [facility] Comment on above: Performed By: #### E RTPF, CONNER, LIP, LIVP, TEGCR ####[facility] [place] [address] Potassium molar conc 3.3 mmol/L Low 3.7-5.3 [facility] Comment on above: Performed By: #### E RTPF, CONNER, LIP, LIVP, TEGCR ####[address] [address] Sodium molar conc 141 mmol/L Normal 135-144 [facility] Comment on above: Performed By: #### E RTPF, CONNER, LIP, LIVP, TEGCR ####[address] [address] BUN/CRE Ratio NOT REPORTED Normal 9-20 [facility] Comment on above: Performed By: #### E RTPF, CONNER, LIP, LIVP, TEGCR ####[address] [address] Staging: NOT REPORTED Normal [facility] Comment on above: Performed By: #### E RTPF, CONNER, LIP, LIVP, TEGCR ####[address] [address] CBCon 02-15-2018 Erythrocyte distribution width Auto Ratio (RBC) 16.5 % High 11.8-14.4 [facility] Comment on above: Performed By: #### E RTPF, CONNER, LIP, LIVP, TEGCR ####[address] [address] Hematocrit Auto Volume Fraction (Bld) 27.4 % Low 40.7-50.3 [facility] Comment on above: Performed By: #### E RTPF, CONNER, LIP, LIVP, TEGCR ####[address] [address] Hemoglobin mass conc (Bld) 8.6 g/dL Low 13.0-17.0 [facility] Comment on above: Performed By: #### E RTPF, CONNER, LIP, LIVP, TEGCR ####[address] [address] MCH Auto Entitic mass (RBC) 29.1 pg Normal 25.2-33.5 [facility] Comment on above: Performed By: #### E RTPF, CONNER, LIP, LIVP, TEGCR ####[address] [address] MCHC Auto mass conc (RBC) 31.4 g/dL Normal 28.4-34.8 [facility] Comment on above: Performed By: #### E RTPF, CONNER, LIP, LIVP, TEGCR ####[address] [address] MCV Auto Entitic volume (RBC) 92.6 fL Normal 82.6-102.9 [facility] Comment on above: Performed By: #### E RTPF, CONNER, LIP, LIVP, TEGCR ####[address] [address] NRBC Automated 0.1 per 100 WBC High 0.0 [facility] Comment on above: Performed By: #### E RTPF, CONNER, LIP, LIVP, TEGCR ####[address] [address] Platelet mean volume Auto Entitic volume (Bld) 12.4 fL Normal 8.1-13.5 [facility] Comment on above: Performed By: #### E RTPF, CONNER, LIP, LIVP, TEGCR ####[address] [address] Platelets Auto #/vol (Bld) 533 10*3/uL High 138-453 [facility] Comment on above: Performed By: #### E RTPF, CONNER, LIP, LIVP, TEGCR ####[address] [address] RBC Auto #/vol (Bld) 2.96 10*6/uL Low 4.21-5.77 [facility] Comment on above: Performed By: #### E RTPF, CONNER, LIP, LIVP, TEGCR ####[address] [place] [address] WBC Auto #/vol (Bld) 28.7 10*3/uL High 3.5-11.3 [facility] Comment on above: Performed By: #### E RTPF, CONNER, LIP, LIVP, TEGCR ####[address] [place] [address] Magnesiumon 02-15-2018 Magnesium mass conc 2.4 mg/dL Normal 1.6-2.6 [facility] Comment on above: Performed By: #### E RTPF, CONNER, LIP, LIVP, TEGCR ####[address] [address] Phosphorus, Inorg.on 018 Phosphorus, Inorg. 4.3 mg/dL Normal 2.5-4.5 [facility] Comment on above: Performed By: #### E RTPF, CONNER, LIP, LIVP, TEGCR ####[facility] [address] [place] [address] Basic Metabolic Profon 02-14 Urea nitrogen mass conc 101 mg/dL Critically high 6-20 [facility] Comment on above: Performed By: #### E RTPF, CONNER, LIP, LIVP, TEGCR ####[facility] [address] [place] [address] (cont.) Normal [facility] Comment on above: Result Comment: Aver age GFR for 50-59 years old: 93 mL/min/1.73sq mChronic Kidney Disease: <60 mL/min/1.73sq mKidney failure: <15 mL/min/1.73sq meGFR calculated using average adult body mass. Additional eGFR calculator available at:http://www.[employer].com/multiple_crcl_2012.htm Performed By: #### E RTPF, CONNER, LIP, LIVP, TEGCR ####[address] [place] [address] Anion gap 3 molar conc 20 mmol/L High 9-17 [facility] Comment on above: Performed By: #### E RTPF, CONNER, LIP, LIVP, TEGCR ####[address] [address] Calcium mass conc 9.0 mg/dL Normal 8.6-10.4 [facility] Comment on above: Performed By: #### E RTPF, CONNER, LIP, LIVP, TEGCR ####[address] [address] Chloride molar conc 93 mmol/L Low 98-107 [facility] Comment on above: Performed By: #### E RTPF, CONNER, LIP, LIVP, TEGCR ####[facility] [place] [address] CO2 molar conc 24 mmol/L Normal 20-31 [facility] Comment on above: Performed By: #### E RTPF, CONNER, LIP, LIVP, TEGCR ####[facility] [place] [address] Creatinine mass conc 2.97 mg/dL High 0.70-1.20 [facility] Comment on above: Performed By: #### E RTPF, CONNER, LIP, LIVP, TEGCR ####[address] [address] GFR, Amer 27 mL/min Low >60 [facility] Comment on above: Performed By: #### E RTPF, CONNER, LIP, LIVP, TEGCR ####[address] [address] GFR,non Amer 22 mL/min Low >60 [facility] Comment on above: Performed By: #### E RTPF, CONNER, LIP, LIVP, TEGCR ####[address] [address] Glucose mass conc 146 mg/dL High 70-99 [facility] Comment on above: Performed By: #### E RTPF, CONNER, LIP, LIVP, TEGCR ####[address] [address] Potassium molar conc 3.7 mmol/L Normal 3.7-5.3 [facility] Comment on above: Performed By: #### E RTPF, CONNER, LIP, LIVP, TEGCR ####[address] [address] Sodium molar conc 137 mmol/L Normal 135-144 [facility] Comment on above: Performed By: #### E RTPF, CONNER, LIP, LIVP, TEGCR ####[address] [address] BUN/CRE Ratio NOT REPORTED Normal 9-20 [facility] Comment on above: Performed By: #### E RTPF, CONNER, LIP, LIVP, TEGCR ####[address] [address] Staging: NOT REPORTED Normal [facility] Comment on above: Performed By: #### E RTPF, CONNER, LIP, LIVP, TEGCR ####[address] [address] CBCon 02-14-2018 Erythrocyte distribution width Auto Ratio (RBC) 16.2 % High 11.8-14.4 [facility] Comment on above: Performed By: #### E RTPF, CONNER, LIP, LIVP, TEGCR ####[address] [address] Hematocrit Auto Volume Fraction (Bld) 34.2 % Low 40.7-50.3 [facility] Comment on above: Performed By: #### E RTPF, CONNER, LIP, LIVP, TEGCR ####[address] [address] Hemoglobin mass conc (Bld) 11.2 g/dL Low 13.0-17.0 [facility] Comment on above: Performed By: #### E RTPF, CONNER, LIP, LIVP, TEGCR ####[address] [address] MCH Auto Entitic mass (RBC) 29.2 pg Normal 25.2-33.5 [facility] Comment on above: Performed By: #### E RTPF, CONNER, LIP, LIVP, TEGCR ####[address] [address] MCHC Auto mass conc (RBC) 32.7 g/dL Normal 28.4-34.8 [facility] Comment on above: Performed By: #### E RTPF, CONNER, LIP, LIVP, TEGCR ####[address] [address] MCV Auto Entitic volume (RBC) 89.3 fL Normal 82.6-102.9 [facility] Comment on above: Performed By: #### E RTPF, CONNER, LIP, LIVP, TEGCR ####[address] [address] NRBC Automated 0.3 per 100 WBC High 0.0 [facility] Comment on above: Performed By: #### E RTPF, CONNER, LIP, LIVP, TEGCR ####[address] [address] Platelet mean volume Auto Entitic volume (Bld) 11.4 fL Normal 8.1-13.5 [facility] Comment on above: Performed By: #### E RTPF, CONNER, LIP, LIVP, TEGCR ####[facility] [place] [address] Platelets Auto #/vol (Bld) 145 10*3/uL Normal 138-453 [facility] Comment on above: Performed By: #### E RTPF, CONNER, LIP, LIVP, TEGCR ####[facility] [address] [place] [address] RBC Auto #/vol (Bld) 3.83 10*6/uL Low 4.21-5.77 [facility] Comment on above: Performed By: #### E RTPF, CONNER, LIP, LIVP, TEGCR ####[facility] [place] [address] WBC Auto #/vol (Bld) 19.5 10*3/uL High 3.5-11.3 [facility] Comment on above: Performed By: #### E RTPF, CONNER, LIP, LIVP, TEGCR ####[facility] [place] [address] US RETROPERITONEAL LIMITEDon 02-14-2018 US RETROPERITONEAL LIMITED EXAMINATION:RETROPERITONEAL ULTRASOUND OF THE KIDNEYS AND URINARY OBKFIND8202/14/2018COMPARISON:1 CTHISTORY:ORDERING SYSTEM PROVIDED HISTORY: RENAL FAILURE, ACUTE (KIDNEY INJURY)FINDINGS:Kidneys:The right kidney measures 11.3 cm in length and the left kidney measures 12.2cm in length.Mild right renal pelviectasis, better seen on recent CT. No perinephriccollection bilaterally.Bladder:Not imagedIMPRESSION: Mild right renal pelviectasis. Please refer to CT performed 1 day prior.Interpreted by:NADEGE Hoodigned by:Jonathan Jones MD02/14/18inal result Normal [facility] XR CHEST PORTABLEon 02-15-20 18 XR CHEST PORTABLE EXAMINATION:SINGLE X RAY VIEW OF THE CHEST02/14/2018 8:22 amCOMPARISON:Chest x-ray from 02/12/2018HISTORY:ORDERING SYSTEM PROVIDED HISTORY: ventTECHNOLOGIST PROVIDED HISTORY:ventFINDINGS:Tracheos neha identified. Enteric tube extends to the stomach. Gastrostomyidentified. The surgical clips project over the right upper quadrant of theabdomen.There is hyperexpansion of the lungs, flattening of the hemidiaphragms, andrelative paucity of lung markings in the bilateral upper lobes. There areimproving densities in lung bases with minimal residual. There is slightblunting of the left costophrenic angle. There is no focal airspaceconsolidation, right pleural effusion or pneumothorax. The cardiomediastinalsilhouette appears within normal limits, given technique and there is nopulmonary vascular congestion. Visualized osseous structures appear intact,and grossly unremarkable, given the non dedicated imaging.IMPRESSION: 1. Expected positions of medical support devices.2. Improving bibasilar atelectatic changes.3. Small left pleural effusion.Interpreted by:NADEGE Wrightigned by:Cassie Guzmán MD02/14/18inal result Normal [facility] Basic Metabolic Profon 02-13 Urea nitrogen mass conc 102 mg/dL Critically high - [facility] Comment on above: Performed By: #### E RTPF, CONNER, LIP, LIVP, TEGCR ####[employer] [place] [address] (cont.) Normal [facility] Comment on above: Result Comment: Aver age GFR for 50-59 years old: 93 mL/min/1.73sq mChronic Kidney Disease: <60 mL/min/1.73sq mKidney failure: <15 mL/min/1.73sq meGFR calculated using average adult body mass. Additional eGFR calculator available at:http://www.[employer]/multiple_crcl_2012.htm Performed By: #### E RTPF, CONNER, LIP, LIVP, TEGCR ####[facility] [place] [address] Anion gap 3 molar conc 16 mmol/L Normal 9-17 [facility] Comment on above: Performed By: #### E RTPF, CONNER, LIP, LIVP, TEGCR ####[facility] [place] [address] Calcium mass conc 8.7 mg/dL Normal 8.6-10.4 [facility] Comment on above: Performed By: #### E RTPF, CONNER, LIP, LIVP, TEGCR ####[address] [address] Chloride molar conc 98 mmol/L Normal 98-107 [facility] Comment on above: Performed By: #### E RTPF, CONNER, LIP, LIVP, TEGCR ####[address] [address] CO2 molar conc 20 mmol/L Normal 20-31 [facility] Comment on above: Performed By: #### E RTPF, CONNER, LIP, LIVP, TEGCR ####[address] [address] Creatinine mass conc 3.44 mg/dL High 0.70-1.20 [facility] Comment on above: Performed By: #### E RTPF, CONNER, LIP, LIVP, TEGCR ####[address] [place] [address] GFR, Amer 22 mL/min Low >60 [facility] Comment on above: Performed By: #### E RTPF, CONNER, LIP, LIVP, TEGCR ####[address] [place] [address] GFR,non Amer 19 mL/min Low >60 [facility] Comment on above: Performed By: #### E RTPF, CONNER, LIP, LIVP, TEGCR ####[address] [place] [address] Glucose mass conc 151 mg/dL High 70-99 [facility] Comment on above: Performed By: #### E RTPF, CONNER, LIP, LIVP, TEGCR ####[address] [address] Potassium molar conc 4.5 mmol/L Normal 3.7-5.3 [facility] Comment on above: Performed By: #### E RTPF, CONNER, LIP, LIVP, TEGCR ####[address] [address] Sodium molar conc 134 mmol/L Low 135-144 [facility] Comment on above: Performed By: #### E RTPF, CONNER, LIP, LIVP, TEGCR ####[address] [address] BUN/CRE Ratio NOT REPORTED Normal 9-20 [facility] Comment on above: Performed By: #### E RTPF, CONNER, LIP, LIVP, TEGCR ####[address] [address] Staging: NOT REPORTED Normal [facility] Comment on above: Performed By: #### E RTPF, CONNER, LIP, LIVP, TEGCR ####[address] [address] Brain Natri. Peptideon 02-13 Natriuretic peptide B mass conc (Bld) 769 pg/mL High <300 [facility] Comment on above: Result Comment: Pro- BNP results cannot be compared to BNP results. Performed By: #### E RTPF, CONNER, LIP, LIVP, TEGCR ####[address] [address] Natriuretic peptide B mass conc (Bld) Normal [facility] Comment on above: Result Comment: Pro- BNP Reference Range:Rule Out: <300Grey Zone: Age <50 300-450 Age 50-75 300-900 Age >75 300-1800Usually represents mild to moderate HF but other cardiopulmonary causes cannot be ruled out.Rule In: Age <50 >450 Age 50-75 >900 Age >75 >1800 Performed By: #### E RTPF, CONNER, LIP, LIVP, TEGCR ####[address] [address] CBCon 02-13-2018 Erythrocyte distribution width Auto Ratio (RBC) 16.5 % High 11.8-14.4 [facility] Comment on above: Performed By: #### E RTPF, CONNER, LIP, LIVP, TEGCR ####[address] [address] Hematocrit Auto Volume Fraction (Bld) 24.7 % Low 40.7-50.3 [facility] Comment on above: Performed By: #### E RTPF, CONNER, LIP, LIVP, TEGCR ####[address] [address] Hemoglobin mass conc (Bld) 8.1 g/dL Low 13.0-17.0 [facility] Comment on above: Performed By: #### E RTPF, CONNER, LIP, LIVP, TEGCR ####[address] [address] MCH Auto Entitic mass (RBC) 29.7 pg Normal 25.2-33.5 [facility] Comment on above: Performed By: #### E RTPF, CONNER, LIP, LIVP, TEGCR ####[address] [address] MCHC Auto mass conc (RBC) 32.8 g/dL Normal 28.4-34.8 [facility] Comment on above: Performed By: #### E RTPF, CONNER, LIP, LIVP, TEGCR ####[address] [address] MCV Auto Entitic volume (RBC) 90.5 fL Normal 82.6-102.9 [facility] Comment on above: Performed By: #### E RTPF, CONNER, LIP, LIVP, TEGCR ####[address] [address] NRBC Automated 0.3 per 100 WBC High 0.0 [facility] Comment on above: Performed By: #### E RTPF, CONNER, LIP, LIVP, TEGCR ####[address] [address] Platelet mean volume Auto Entitic volume (Bld) 11.9 fL Normal 8.1-13.5 [facility] Comment on above: Performed By: #### E RTPF, CONNER, LIP, LIVP, TEGCR ####[address] [address] Platelets Auto #/vol (Bld) 490 10*3/uL High 138-453 [facility] Comment on above: Performed By: #### E RTPF, CONNER, LIP, LIVP, TEGCR ####[address] [address] RBC Auto #/vol (Bld) 2.73 10*6/uL Low 4.21-5.77 [facility] Comment on above: Performed By: #### E RTPF, CONNER, LIP, LIVP, TEGCR ####[address] [address] WBC Auto #/vol (Bld) 25.7 10*3/uL High 3.5-11.3 [facility] Comment on above: Performed By: #### E RTPF, CONNER, LIP, LIVP, TEGCR ####[facility] [place] [address] CT ABDOMEN PELVIS WO CONTRAS Ton 02-13-2018 CT ABDOMEN PELVIS WO CONTRAST EXAMINATION:CT OF THE ABDOMEN AND PELVIS WITHOUT CONTRAST 02/13/2018 11:04 amTECHNIQUE:CT of the abdomen and pelvis was performed without the administration ofintravenous contrast. Multiplanar reformatted images are provided for review.Dose modulation, iterative reconstruction, and/or weight based adjustment ofthe mA/kV was utilized to reduce the radiation dose to as low as reasonablyachievable.COMPARIS ON:01/29/2018HISTORY:ORDERING SYSTEM PROVIDED HISTORY: abd distensionTECHNOLOGIST PROVIDED HISTORY:FINDINGS:Cardiovascul ar: UnremarkableLower Chest: Right basilar consolidationOrgansLiver: UnremarkableGallbladder: CholecystectomyBiliary: UnremarkablePancreas: UnremarkableSpleen: SplenectomyAdrenals: UnremarkableKidneys: Right-sided hydronephrosis. No obstructive lithiasis.PelvisBladder: Partially distended.Reproductive: Unremarkable.GI/ Bowel: Status small-bowel loops measure up to 5 cm. Transition pointidentified distally, in the area of surgical suture placement status postterminal ileum resection. Unremarkable appendix. Stomach and proximal smallbowel appear unremarkable.Peritoneum/ Retroperitoneum: No adenopathy, free air or free fluidBones/ Soft Tissues: Laparotomy scar noted along the ventral abdomen. Noabnormal fluid or gas collections. There is compression deformity at the Z0gikeyzbtb body.IMPRESSION: 1. Fluid-filled dilated small bowel loops are identified, with transitionpoint near the area of terminal ileum resection in the right lower quadrantseries 2, image 67.2. Right-sided hydronephrosis. No obstructive lithiasis.3. Status post splenectomy. No abnormality around the incision site.4. No free fluid in the abdomen or pelvis is appreciated.5. L1 vertebral body compression, present dating back to at least 01/19/2018Interpreted by:NADEGE Vidaligned by:Anjel Hernandez MD02/13/18Final result Normal [facility] XR ABDOMEN (KUB) (SINGLE AP VIEW)on 02-13-2018 XR ABDOMEN (KUB) (SINGLE AP VIEW) EXAMINATION:SINGLE SUPINE XRAY VIEW(S) OF THE AKINZNK0802/13/2018 7:15 amHISTORY:ORDERING SYSTEM PROVIDED HISTORY: abd painTECHNOLOGIST PROVIDED HISTORY:abd painFINDINGS:Air-filled, mildly dilated loops of small and large bowel are identified.Catheter projects over the right lower hemiabdomen. Peg tube in place.Osseous structures grossly intact.IMPRESSION: The appearance of ileus in the gastrointestinal tract has not significantlychanged compared to 02/10/2018Interpreted by:NADEGE Vidaligned by:Anjel Hernandez MD02/13/18inal result Normal [facility] Basic Metabolic Profon 02-12 (cont.) Normal [facility] Comment on above: Result Comment: Aver age GFR for 50-59 years old: 93 mL/min/1.73sq mChronic Kidney Disease: <60 mL/min/1.73sq mKidney failure: <15 mL/min/1.73sq meGFR calculated using average adult body mass. Additional eGFR calculator available at:http://www.[employer]/multiple_crcl_2012.htm Performed By: #### E RTPF, CONNER, LIP, LIVP, TEGCR ####[facility] [address] [place] [address] Anion gap 3 molar conc 16 mmol/L Normal 9-17 [facility] Comment on above: Performed By: #### E RTPF, CONNER, LIP, LIVP, TEGCR ####[facility] [address] [place] [address] Calcium mass conc 8.9 mg/dL Normal 8.6-10.4 [facility] Comment on above: Performed By: #### E RTPF, CONNER, LIP, LIVP, TEGCR ####[facility] [address] [place] [address] Chloride molar conc 96 mmol/L Low 98-107 [facility] Comment on above: Performed By: #### E RTPF, CONNER, LIP, LIVP, TEGCR ####[facility] [place] [address] CO2 molar conc 19 mmol/L Low 20-31 [facility] Comment on above: Performed By: #### E RTPF, CONNER, LIP, LIVP, TEGCR ####[address] [address] Creatinine mass conc 3.22 mg/dL High 0.70-1.20 [facility] Comment on above: Performed By: #### E RTPF, CONNER, LIP, LIVP, TEGCR ####[address] [address] GFR, Amer 24 mL/min Low >60 [facility] Comment on above: Performed By: #### E RTPF, CONNER, LIP, LIVP, TEGCR ####[address] [address] GFR,non Amer 20 mL/min Low >60 [facility] Comment on above: Performed By: #### E RTPF, CONNER, LIP, LIVP, TEGCR ####[address] [address] Glucose mass conc 134 mg/dL High 70-99 [facility] Comment on above: Performed By: #### E RTPF, CONNER, LIP, LIVP, TEGCR ####[address] [address] Potassium molar conc 4.1 mmol/L Normal 3.7-5.3 [facility] Comment on above: Performed By: #### E RTPF, CONNER, LIP, LIVP, TEGCR ####[address] [address] Sodium molar conc 131 mmol/L Low 135-144 [facility] Comment on above: Performed By: #### E RTPF, CONNER, LIP, LIVP, TEGCR ####[facility] [address] [place] [address] Urea nitrogen mass conc 89 mg/dL High - [facility] Comment on above: Performed By: #### E RTPF, CONNER, LIP, LIVP, TEGCR ####[address] [place] [address] BUN/CRE Ratio NOT REPORTED Normal 01-21 [facility] Comment on above: Performed By: #### E RTPF, CONNER, LIP, LIVP, TEGCR ####[address] [place] [address] Staging: NOT REPORTED Normal [facility] Comment on above: Performed By: #### E RTPF, CONNER, LIP, LIVP, TEGCR ####[address] [address] Brain Natri. Peptideon 02-12 Natriuretic peptide B mass conc (Bld) Normal [facility] Comment on above: Result Comment: Pro- BNP Reference Range:Rule Out: <300Grey Zone: Age <50 300-450 Age 50-75 300-900 Age >75 300-1800Usually represents mild to moderate HF but other cardiopulmonary causes cannot be ruled out.Rule In: Age <50 >450 Age 50-75 >900 Age >75 >1800 Performed By: #### E RTPF, CONNER, LIP, LIVP, TEGCR ####[address] [place] [address] Natriuretic peptide B mass conc (Bld) 648 pg/mL High <300 [facility] Comment on above: Result Comment: Pro- BNP results cannot be compared to BNP results. Performed By: #### E RTPF, CONNER, LIP, LIVP, TEGCR ####[address] [place] [address] CBCon 02-12-2018 Erythrocyte distribution width Auto Ratio (RBC) 16.7 % High 11.8-14.4 [facility] Comment on above: Performed By: #### E RTPF, CONNER, LIP, LIVP, TEGCR ####[address] [address] Hematocrit Auto Volume Fraction (Bld) 26.2 % Low 40.7-50.3 [facility] Comment on above: Performed By: #### E RTPF, CONNER, LIP, LIVP, TEGCR ####[address] [address] Hemoglobin mass conc (Bld) 8.4 g/dL Low 13.0-17.0 [facility] Comment on above: Performed By: #### E RTPF, CONNER, LIP, LIVP, TEGCR ####[address] [address] MCH Auto Entitic mass (RBC) 29.5 pg Normal 25.2-33.5 [facility] Comment on above: Performed By: #### E RTPF, CONNER, LIP, LIVP, TEGCR ####[address] [address] MCHC Auto mass conc (RBC) 32.1 g/dL Normal 28.4-34.8 [facility] Comment on above: Performed By: #### E RTPF, CONNER, LIP, LIVP, TEGCR ####[address] [address] MCV Auto Entitic volume (RBC) 91.9 fL Normal 82.6-102.9 [facility] Comment on above: Performed By: #### E RTPF, CONNER, LIP, LIVP, TEGCR ####[address] [address] NRBC Automated 0.3 per 100 WBC High 0.0 [facility] Comment on above: Performed By: #### E RTPF, CONNER, LIP, LIVP, TEGCR ####[address] [place] [address] Platelet mean volume Auto Entitic volume (Bld) 11.8 fL Normal 8.1-13.5 [facility] Comment on above: Performed By: #### E RTPF, CONNER, LIP, LIVP, TEGCR ####[address] [address] Platelets Auto #/vol (Bld) 507 10*3/uL High 138-453 [facility] Comment on above: Performed By: #### E RTPF, CONNER, LIP, LIVP, TEGCR ####[address] [address] RBC Auto #/vol (Bld) 2.85 10*6/uL Low 4.21-5.77 [facility] Comment on above: Performed By: #### E RTPF, CONNER, LIP, LIVP, TEGCR ####[address] [address] WBC Auto #/vol (Bld) 25.9 10*3/uL High 3.5-11.3 [facility] Comment on above: Performed By: #### E RTPF, CONNER, LIP, LIVP, TEGCR ####[address] [address] Magnesiumon 02-12-2018 Magnesium mass conc 2.4 mg/dL Normal 1.6-2.6 [facility] Comment on above: Performed By: #### E RTPF, CONNER, LIP, LIVP, TEGCR ####[address] [place] [address] Phosphorus, Inorg.on 018 Phosphorus, Inorg. 5.1 mg/dL High 2.5-4.5 [facility] Comment on above: Performed By: #### E RTPF, CONNER, LIP, LIVP, TEGCR ####[facility] [address] [place] [address] XR CHEST PORTABLEon 02-13-20 18 XR CHEST PORTABLE EXAMINATION:SINGLE X RAY VIEW OF THE CHEST02/12/2018 8:05 amCOMPARISON:February 07, 2018, February 05, 2018HISTORY:ORDERING SYSTEM PROVIDED HISTORY: trachTECHNOLOGIST PROVIDED HISTORY:trachFINDINGS:The endotracheal and enteric tubes have been removed. A tracheostomy tubehas been placed, projecting over the tracheal air column. The right PICCline appears unchanged with the tip at the level of the mid SVC. Shallowinflation. Basilar opacities are again noted, although improved in theinterval. Small left effusion is noted, although this appears lessprominent. No pneumothorax identified. The cardiac and mediastinal contoursappear unchanged. There appears to be a gastrostomy tube. Gas is presentwithin mildly prominent loops of small and large bowel.IMPRESSION: Status post tracheostomy tube placement and gastrostomy tube placement.Basilar atelectasis and small left effusion are again noted with overallimproved aeration of the lungs.Interpreted by:NADEGE Burksigned by:Fidel Marley MD02/12/18inal result Normal [facility] Basic Metabolic Profon 02-11 (cont.) Normal [facility] Comment on above: Result Comment: Aver age GFR for 50-59 years old: 93 mL/min/1.73sq mChronic Kidney Disease: <60 mL/min/1.73sq mKidney failure: <15 mL/min/1.73sq meGFR calculated using average adult body mass. Additional eGFR calculator available at:http://www.[employer].com/multiple_crcl_2012.htm Performed By: #### E RTPF, CONNER, LIP, LIVP, TEGCR ####[facility] [address] [place], [place] [address] Anion gap 3 molar conc 19 mmol/L High - [facility] Comment on above: Performed By: #### E RTPF, CONNER, LIP, LIVP, TEGCR ####[facility] [address] [place] [address] Calcium mass conc 8.8 mg/dL Normal 8.6-10.4 [facility] Comment on above: Performed By: #### E RTPF, CONNER, LIP, LIVP, TEGCR ####[address] [place] [address] Chloride molar conc 101 mmol/L Normal 98-107 [facility] Comment on above: Performed By: #### E RTPF, CONNER, LIP, LIVP, TEGCR ####[address] [place] [address] CO2 molar conc 17 mmol/L Low 20-31 [facility] Comment on above: Performed By: #### E RTPF, CONNER, LIP, LIVP, TEGCR ####[address] [address] Creatinine mass conc 2.91 mg/dL High 0.70-1.20 [facility] Comment on above: Performed By: #### E RTPF, CONNER, LIP, LIVP, TEGCR ####[facility] [place] [address] GFR, Amer 27 mL/min Low >60 [facility] Comment on above: Performed By: #### E RTPF, CONNER, LIP, LIVP, TEGCR ####[facility] [address] [place] [address] GFR,non Amer 22 mL/min Low >60 [facility] Comment on above: Performed By: #### E RTPF, CONNER, LIP, LIVP, TEGCR ####[facility] [place] [address] Glucose mass conc 140 mg/dL High 70-99 [facility] Comment on above: Performed By: #### E RTPF, CONNER, LIP, LIVP, TEGCR ####[facility] [place] [address] Potassium molar conc 3.4 mmol/L Low 3.7-5.3 [facility] Comment on above: Performed By: #### E RTPF, CONNER, LIP, LIVP, TEGCR ####[address] [address] Sodium molar conc 137 mmol/L Normal 135-144 [facility] Comment on above: Performed By: #### E RTPF, CONNER, LIP, LIVP, TEGCR ####[address] [place] [address] Urea nitrogen mass conc 75 mg/dL High - [facility] Comment on above: Performed By: #### E RTPF, CONNER, LIP, LIVP, TEGCR ####[address] [place] [address] BUN/CRE Ratio NOT REPORTED Normal - [facility] Comment on above: Performed By: #### E RTPF, CONNER, LIP, LIVP, TEGCR ####[address] [place] [address] Staging: NOT REPORTED Normal [facility] Comment on above: Performed By: #### E RTPF, CONNER, LIP, LIVP, TEGCR ####[address] [place] [address] Brain Natri. Peptideon 02-11 Natriuretic peptide B mass conc (Bld) Normal [facility] Comment on above: Result Comment: Pro- BNP Reference Range:Rule Out: <300Grey Zone: Age <50 300-450 Age 50-75 300-900 Age >75 300-1800Usually represents mild to moderate HF but other cardiopulmonary causes cannot be ruled out.Rule In: Age <50 >450 Age 50-75 >900 Age >75 >1800 Performed By: #### E RTPF, CONNER, LIP, LIVP, TEGCR ####[address] [place] [address] Natriuretic peptide B mass conc (Bld) 1407 pg/mL High <300 [facility] Comment on above: Result Comment: Pro- BNP results cannot be compared to BNP results. Performed By: #### E RTPF, CONNER, LIP, LIVP, TEGCR ####[address] [address] CBCon 02-11-2018 Erythrocyte distribution width Auto Ratio (RBC) 16.7 % High 11.8-14.4 [facility] Comment on above: Performed By: #### E RTPF, CONNER, LIP, LIVP, TEGCR ####[address] [address] Hematocrit Auto Volume Fraction (Bld) 28.4 % Low 40.7-50.3 [facility] Comment on above: Performed By: #### E RTPF, CONNER, LIP, LIVP, TEGCR ####[address] [address] Hemoglobin mass conc (Bld) 9.1 g/dL Low 13.0-17.0 [facility] Comment on above: Performed By: #### E RTPF, CONNER, LIP, LIVP, TEGCR ####[address] [place] [address] MCH Auto Entitic mass (RBC) 29.3 pg Normal 25.2-33.5 [facility] Comment on above: Performed By: #### E RTPF, CONNER, LIP, LIVP, TEGCR ####[address] [place] [address] MCHC Auto mass conc (RBC) 32.0 g/dL Normal 28.4-34.8 [facility] Comment on above: Performed By: #### E RTPF, CONNER, LIP, LIVP, TEGCR ####[address] [address] MCV Auto Entitic volume (RBC) 91.3 fL Normal 82.6-102.9 [facility] Comment on above: Performed By: #### E RTPF, CONNER, LIP, LIVP, TEGCR ####[address] [address] NRBC Automated 0.3 per 100 WBC High 0.0 [facility] Comment on above: Performed By: #### E RTPF, CONNER, LIP, LIVP, TEGCR ####[address] [address] Platelet mean volume Auto Entitic volume (Bld) 11.7 fL Normal 8.1-13.5 [facility] Comment on above: Performed By: #### E RTPF, CONNER, LIP, LIVP, TEGCR ####[address] [address] Platelets Auto #/vol (Bld) 466 10*3/uL High 138-453 [facility] Comment on above: Performed By: #### E RTPF, CONNER, LIP, LIVP, TEGCR ####[address] [address] RBC Auto #/vol (Bld) 3.11 10*6/uL Low 4.21-5.77 [facility] Comment on above: Performed By: #### E RTPF, CONNER, LIP, LIVP, TEGCR ####[address] [address] WBC Auto #/vol (Bld) 24.8 10*3/uL High 3.5-11.3 [facility] Comment on above: Performed By: #### E RTPF, CONNER, LIP, LIVP, TEGCR ####[facility] [address] [place] [address] Triglycerideson 02-11-2018 Triglyceride mass conc 202 mg/dL High <150 [facility] Comment on above: Result Comment: Trig lyceride Guidelines: <150 Desirable 150- 199 Borderline 200-499 High >499 Very high Based on AHA Guidelines for fasting triglyceride, February 2012. Performed By: #### E RTPF, CONNER, LIP, LIVP, TEGCR ####[address] [address] Basic Metabolic Profon 02-10 (cont.) Normal [facility] Comment on above: Result Comment: Aver age GFR for 50-59 years old: 93 mL/min/1.73sq mChronic Kidney Disease: <60 mL/min/1.73sq mKidney failure: <15 mL/min/1.73sq meGFR calculated using average adult body mass. Additional eGFR calculator available at:http://www.[employer]/multiple_crcl_2012.htm Performed By: #### E RTPF, CONNER, LIP, LIVP, TEGCR ####[address] [place] [address] Anion gap 3 molar conc 17 mmol/L Normal 9-17 [facility] Comment on above: Performed By: #### E RTPF, CONNER, LIP, LIVP, TEGCR ####[facility] [address] [place] [address] Calcium mass conc 9.0 mg/dL Normal 8.6-10.4 [facility] Comment on above: Performed By: #### E RTPF, CONNER, LIP, LIVP, TEGCR ####[facility] [place] [address] Chloride molar conc 106 mmol/L Normal 98-107 [facility] Comment on above: Performed By: #### E RTPF, CONNER, LIP, LIVP, TEGCR ####[facility] [place] [address] CO2 molar conc 19 mmol/L Low 20-31 [facility] Comment on above: Performed By: #### E RTPF, CONNER, LIP, LIVP, TEGCR ####[address] [place] [address] Creatinine mass conc 3.02 mg/dL High 0.70-1.20 [facility] Comment on above: Performed By: #### E RTPF, CONNER, LIP, LIVP, TEGCR ####[address] [address] GFR, Amer 26 mL/min Low >60 [facility] Comment on above: Performed By: #### E RTPF, CONNER, LIP, LIVP, TEGCR ####[address] [address] GFR,non Amer 22 mL/min Low >60 [facility] Comment on above: Performed By: #### E RTPF, CONNER, LIP, LIVP, TEGCR ####[address] [place] [address] Glucose mass conc 147 mg/dL High 70-99 [facility] Comment on above: Performed By: #### E RTPF, CONNER, LIP, LIVP, TEGCR ####[facility] [place] [address] Potassium molar conc 3.5 mmol/L Low 3.7-5.3 [facility] Comment on above: Performed By: #### E RTPF, CONNER, LIP, LIVP, TEGCR ####[facility] [place] [address] Sodium molar conc 142 mmol/L Normal 135-144 [facility] Comment on above: Performed By: #### E RTPF, CONNER, LIP, LIVP, TEGCR ####[address] [place] [address] Urea nitrogen mass conc 71 mg/dL High -20 [facility] Comment on above: Performed By: #### E RTPF, CONNER, LIP, LIVP, TEGCR ####[address] [address] BUN/CRE Ratio NOT REPORTED Normal - [facility] Comment on above: Performed By: #### E RTPF, CONNER, LIP, LIVP, TEGCR ####[address] [address] Staging: NOT REPORTED Normal [facility] Comment on above: Performed By: #### E RTPF, CONNER, LIP, LIVP, TEGCR ####[address] [address] Brain Natri. Peptideon 02-10 Natriuretic peptide B mass conc (Bld) Normal [facility] Comment on above: Result Comment: Pro- BNP Reference Range:Rule Out: <300Grey Zone: Age <50 300-450 Age 50-75 300-900 Age >75 300-1800Usually represents mild to moderate HF but other cardiopulmonary causes cannot be ruled out.Rule In: Age <50 >450 Age 50-75 >900 Age >75 >1800 Performed By: #### E RTPF, CONNER, LIP, LIVP, TEGCR ####[address] [address] Natriuretic peptide B mass conc (Bld) 1392 pg/mL High <300 [facility] Comment on above: Result Comment: Pro- BNP results cannot be compared to BNP results. Performed By: #### E RTPF, CONNER, LIP, LIVP, TEGCR ####[address] [place] [address] CBCon 02-10-2018 Erythrocyte distribution width Auto Ratio (RBC) 17.3 % High 11.8-14.4 [facility] Comment on above: Performed By: #### E RTPF, CONNER, LIP, LIVP, TEGCR ####[address] [address] Hematocrit Auto Volume Fraction (Bld) 30.3 % Low 40.7-50.3 [facility] Comment on above: Performed By: #### E RTPF, CONNER, LIP, LIVP, TEGCR ####[address] [address] Hemoglobin mass conc (Bld) 9.1 g/dL Low 13.0-17.0 [facility] Comment on above: Performed By: #### E RTPF, CONNER, LIP, LIVP, TEGCR ####[address] [address] MCH Auto Entitic mass (RBC) 29.4 pg Normal 25.2-33.5 [facility] Comment on above: Performed By: #### E RTPF, CONNER, LIP, LIVP, TEGCR ####[address] [address] MCHC Auto mass conc (RBC) 30.0 g/dL Normal 28.4-34.8 [facility] Comment on above: Performed By: #### E RTPF, CONNER, LIP, LIVP, TEGCR ####[address] [address] MCV Auto Entitic volume (RBC) 98.1 fL Normal 82.6-102.9 [facility] Comment on above: Performed By: #### E RTPF, CONNER, LIP, LIVP, TEGCR ####[address] [address] NRBC Automated 0.4 per 100 WBC High 0.0 [facility] Comment on above: Performed By: #### E RTPF, CONNER, LIP, LIVP, TEGCR ####[address] [address] Platelet mean volume Auto Entitic volume (Bld) 11.5 fL Normal 8.1-13.5 [facility] Comment on above: Performed By: #### E RTPF, CONNER, LIP, LIVP, TEGCR ####[address] [address] Platelets Auto #/vol (Bld) 526 10*3/uL High 138-453 [facility] Comment on above: Performed By: #### E RTPF, CONNER, LIP, LIVP, TEGCR ####[address] [address] RBC Auto #/vol (Bld) 3.09 10*6/uL Low 4.21-5.77 [facility] Comment on above: Performed By: #### E RTPF, CONNER, LIP, LIVP, TEGCR ####[address] [address] WBC Auto #/vol (Bld) 24.5 10*3/uL High 3.5-11.3 [facility] Comment on above: Performed By: #### E RTPF, CONNER, LIP, LIVP, TEGCR ####[address] [address] Specimen Rejectionon 018 Reason for rejection Unable to perform t esting: Specimen hemolyzed. Normal [facility] Comment on above: Performed By: #### E RTPF, CONNER, LIP, LIVP, TEGCR ####[address] [address] Source of sample .BLOOD Normal [facility] Comment on above: Performed By: #### E RTPF, CONNER, LIP, LIVP, TEGCR ####[facility] [address] [place], [place] [id number] Test ordered BMP Normal [facility] Comment on above: Performed By: #### E RTPF, CONNER, LIP, LIVP, TEGCR ####[address] [place], [place] [id number] ----- NOT REPORTED Normal [facility] Comment on above: Performed By: #### E RTPF, CONNER, LIP, LIVP, TEGCR ####[address] [place], [place] [id number] XR ABDOMEN (KUB) (SINGLE AP VIEW)on 02-10-2018 XR ABDOMEN (KUB) (SINGLE AP VIEW) EXAMINATION:SINGLE SUPINE XRAY VIEW(S) OF THE [id number]/10/2018 2:04 pmCOMPARISON:None.HISTORY:ORD ERING SYSTEM PROVIDED HISTORY: s/p PEGTECHNOLOGIST PROVIDED HISTORY:With gastrografin to determine for leakPlease call [phone] for questions.Reason for exam:->s/p PEGFINDINGS:Diffuse bowel distention. A gastrostomy tube is present in the left upperquadrant. The balloon is inflated. Injected contrast opacifies the stomach.No extravasation of contrast.IMPRESSION: No extravasation of contrast.Interpreted by:NADEGE Lancasterigned by:Hebert Best MD02/10/18inal result Normal [facility] Basic Metabolic Profon 02-09 (cont.) Normal [facility] Comment on above: Result Comment: Aver age GFR for 50-59 years old: 93 mL/min/1.73sq mChronic Kidney Disease: <60 mL/min/1.73sq mKidney failure: <15 mL/min/1.73sq meGFR calculated using average adult body mass. Additional eGFR calculator available at:http://www.[employer]/multiple_crcl_2012.htm Performed By: #### E RTPF, CONNER, LIP, LIVP, TEGCR ####[facility] [place] [address] Anion gap 3 molar conc 16 mmol/L Normal 9-17 [facility] Comment on above: Performed By: #### E RTPF, CONNER, LIP, LIVP, TEGCR ####[address] [place] [address] Calcium mass conc 8.3 mg/dL Low 8.6-10.4 [facility] Comment on above: Performed By: #### E RTPF, CONNER, LIP, LIVP, TEGCR ####[address] [address] Chloride molar conc 109 mmol/L High 98-107 [facility] Comment on above: Performed By: #### E RTPF, CONNER, LIP, LIVP, TEGCR ####[address] [address] CO2 molar conc 18 mmol/L Low 20-31 [facility] Comment on above: Performed By: #### E RTPF, CONNER, LIP, LIVP, TEGCR ####[address] [place] [address] Creatinine mass conc 3.10 mg/dL High 0.70-1.20 [facility] Comment on above: Performed By: #### E RTPF, CONNER, LIP, LIVP, TEGCR ####[facility] [place] [address] GFR, Amer 25 mL/min Low >60 [facility] Comment on above: Performed By: #### E RTPF, CONNER, LIP, LIVP, TEGCR ####[facility] [place] [address] GFR,non Amer 21 mL/min Low >60 [facility] Comment on above: Performed By: #### E RTPF, CONNER, LIP, LIVP, TEGCR ####[address] [place] [address] Glucose mass conc 135 mg/dL High 70-99 [facility] Comment on above: Performed By: #### E RTPF, CONNER, LIP, LIVP, TEGCR ####[address] [address] Potassium molar conc 4.0 mmol/L Normal 3.7-5.3 [facility] Comment on above: Performed By: #### E RTPF, CONNER, LIP, LIVP, TEGCR ####[address] [address] Sodium molar conc 143 mmol/L Normal 135-144 [facility] Comment on above: Performed By: #### E RTPF, CONNER, LIP, LIVP, TEGCR ####[address] [address] Urea nitrogen mass conc 67 mg/dL High 6-20 [facility] Comment on above: Performed By: #### E RTPF, CONNER, LIP, LIVP, TEGCR ####[facility] [place] [address] BUN/CRE Ratio NOT REPORTED Normal -20 [facility] Comment on above: Performed By: #### E RTPF, CONNER, LIP, LIVP, TEGCR ####[facility] [place] [address] Staging: NOT REPORTED Normal [facility] Comment on above: Performed By: #### E RTPF, CONNER, LIP, LIVP, TEGCR ####[address] [address] Brain Natri. Peptideon 02-09 Natriuretic peptide B mass conc (Bld) Normal [facility] Comment on above: Result Comment: Pro- BNP Reference Range:Rule Out: <300Grey Zone: Age <50 300-450 Age 50-75 300-900 Age >75 300-1800Usually represents mild to moderate HF but other cardiopulmonary causes cannot be ruled out.Rule In: Age <50 >450 Age 50-75 >900 Age >75 >1800 Performed By: #### E RTPF, CONNER, LIP, LIVP, TEGCR ####[address] [address] Natriuretic peptide B mass conc (Bld) 1435 pg/mL High <300 [facility] Comment on above: Result Comment: Pro- BNP results cannot be compared to BNP results. Performed By: #### E RTPF, CONNER, LIP, LIVP, TEGCR ####[address] [address] CBCon 02-09-2018 Erythrocyte distribution width Auto Ratio (RBC) 17.7 % High 11.8-14.4 [facility] Comment on above: Performed By: #### E RTPF, CONNER, LIP, LIVP, TEGCR ####[address] [address] Hematocrit Auto Volume Fraction (Bld) 29.4 % Low 40.7-50.3 [facility] Comment on above: Performed By: #### E RTPF, CONNER, LIP, LIVP, TEGCR ####[address] [place] [address] Hemoglobin mass conc (Bld) 8.8 g/dL Low 13.0-17.0 [facility] Comment on above: Performed By: #### E RTPF, CONNER, LIP, LIVP, TEGCR ####[address] [address] MCH Auto Entitic mass (RBC) 29.2 pg Normal 25.2-33.5 [facility] Comment on above: Performed By: #### E RTPF, CONNER, LIP, LIVP, TEGCR ####[address] [address] MCHC Auto mass conc (RBC) 29.9 g/dL Normal 28.4-34.8 [facility] Comment on above: Performed By: #### E RTPF, CONNER, LIP, LIVP, TEGCR ####[address] [address] MCV Auto Entitic volume (RBC) 97.7 fL Normal 82.6-102.9 [facility] Comment on above: Performed By: #### E RTPF, CONNER, LIP, LIVP, TEGCR ####[address] [address] NRBC Automated 0.9 per 100 WBC High 0.0 [facility] Comment on above: Performed By: #### E RTPF, CONNER, LIP, LIVP, TEGCR ####[address] [address] Platelet mean volume Auto Entitic volume (Bld) 11.5 fL Normal 8.1-13.5 [facility] Comment on above: Performed By: #### E RTPF, CONNER, LIP, LIVP, TEGCR ####[address] [address] Platelets Auto #/vol (Bld) 458 10*3/uL High 138-453 [facility] Comment on above: Performed By: #### E RTPF, CONNER, LIP, LIVP, TEGCR ####[address] [address] RBC Auto #/vol (Bld) 3.01 10*6/uL Low 4.21-5.77 [facility] Comment on above: Performed By: #### E RTPF, CONNER, LIP, LIVP, TEGCR ####[address] [address] WBC Auto #/vol (Bld) 19.8 10*3/uL High 3.5-11.3 [facility] Comment on above: Performed By: #### E RTPF, CONNER, LIP, LIVP, TEGCR ####[place] [address] Basic Metabolic Profon 02-08 (cont.) Normal [facility] Comment on above: Result Comment: Aver age GFR for 50-59 years old: 93 mL/min/1.73sq mChronic Kidney Disease: <60 mL/min/1.73sq mKidney failure: <15 mL/min/1.73sq meGFR calculated using average adult body mass. Additional eGFR calculator available at:http://www.[employer]/multiple_crcl_2012.htm Performed By: #### E RTPF, CONNER, LIP, LIVP, TEGCR ####[address] [address] Anion gap 3 molar conc 13 mmol/L Normal 9-17 [facility] Comment on above: Performed By: #### E RTPF, CONNER, LIP, LIVP, TEGCR ####[address] [address] Calcium mass conc 8.3 mg/dL Low 8.6-10.4 [facility] Comment on above: Performed By: #### E RTPF, CONNER, LIP, LIVP, TEGCR ####[address] [address] Chloride molar conc 110 mmol/L High 98-107 [facility] Comment on above: Performed By: #### E RTPF, CONNER, LIP, LIVP, TEGCR ####[address] [place] [address] CO2 molar conc 17 mmol/L Low 20-31 [facility] Comment on above: Performed By: #### E RTPF, CONNER, LIP, LIVP, TEGCR ####[facility] [place] [address] Creatinine mass conc 3.39 mg/dL High 0.70-1.20 [facility] Comment on above: Performed By: #### E RTPF, CONNER, LIP, LIVP, TEGCR ####[address] [address] GFR, Amer 23 mL/min Low >60 [facility] Comment on above: Performed By: #### E RTPF, CONNER, LIP, LIVP, TEGCR ####[address] [address] GFR,non Amer 19 mL/min Low >60 [facility] Comment on above: Performed By: #### E RTPF, CONNER, LIP, LIVP, TEGCR ####[address] [address] Glucose mass conc 136 mg/dL High 70-99 [facility] Comment on above: Performed By: #### E RTPF, CONNER, LIP, LIVP, TEGCR ####[address] [address] Potassium molar conc 4.3 mmol/L Normal 3.7-5.3 [facility] Comment on above: Performed By: #### E RTPF, CONNER, LIP, LIVP, TEGCR ####[facility] [place] [address] Sodium molar conc 140 mmol/L Normal 135-144 [facility] Comment on above: Performed By: #### E RTPF, CONNER, LIP, LIVP, TEGCR ####[facility] [address] [place] [address] Urea nitrogen mass conc 68 mg/dL High - [facility] Comment on above: Performed By: #### E RTPF, CONNER, LIP, LIVP, TEGCR ####[address] [place] [address] BUN/CRE Ratio NOT REPORTED Normal - [facility] Comment on above: Performed By: #### E RTPF, CONNER, LIP, LIVP, TEGCR ####[address] [address] Staging: NOT REPORTED Normal [facility] Comment on above: Performed By: #### E RTPF, CONNER, LIP, LIVP, TEGCR ####[address] [address] Brain Natri. Peptideon 02-08 Natriuretic peptide B mass conc (Bld) Normal [facility] Comment on above: Result Comment: Pro- BNP Reference Range:Rule Out: <300Grey Zone: Age <50 300-450 Age 50-75 300-900 Age >75 300-1800Usually represents mild to moderate HF but other cardiopulmonary causes cannot be ruled out.Rule In: Age <50 >450 Age 50-75 >900 Age >75 >1800 Performed By: #### E RTPF, CONNER, LIP, LIVP, TEGCR ####[address] [address] Natriuretic peptide B mass conc (Bld) 1933 pg/mL High <300 [facility] Comment on above: Result Comment: Pro- BNP results cannot be compared to BNP results. Performed By: #### E RTPF, CONNER, LIP, LIVP, TEGCR ####[address] [place] [address] CBCon 02-08-2018 Erythrocyte distribution width Auto Ratio (RBC) 18.3 % High 11.8-14.4 [facility] Comment on above: Performed By: #### E RTPF, CONNER, LIP, LIVP, TEGCR ####[address] [address] Hematocrit Auto Volume Fraction (Bld) 26.2 % Low 40.7-50.3 [facility] Comment on above: Performed By: #### E RTPF, CONNER, LIP, LIVP, TEGCR ####[address] [address] Hemoglobin mass conc (Bld) 8.0 g/dL Low 13.0-17.0 [facility] Comment on above: Performed By: #### E RTPF, CONNER, LIP, LIVP, TEGCR ####[address] [address] MCH Auto Entitic mass (RBC) 29.6 pg Normal 25.2-33.5 [facility] Comment on above: Performed By: #### E RTPF, CONNER, LIP, LIVP, TEGCR ####[address] [address] MCHC Auto mass conc (RBC) 30.5 g/dL Normal 28.4-34.8 [facility] Comment on above: Performed By: #### E RTPF, CONNER, LIP, LIVP, TEGCR ####[address] [address] MCV Auto Entitic volume (RBC) 97.0 fL Normal 82.6-102.9 [facility] Comment on above: Performed By: #### E RTPF, CONNER, LIP, LIVP, TEGCR ####[address] [address] NRBC Automated 1.2 per 100 WBC High 0.0 [facility] Comment on above: Performed By: #### E RTPF, CONNER, LIP, LIVP, TEGCR ####[address] [place] [address] Platelet mean volume Auto Entitic volume (Bld) 12.1 fL Normal 8.1-13.5 [facility] Comment on above: Performed By: #### E RTPF, CONNER, LIP, LIVP, TEGCR ####[address] [address] Platelets Auto #/vol (Bld) 373 10*3/uL Normal 138-453 [facility] Comment on above: Performed By: #### E RTPF, CONNER, LIP, LIVP, TEGCR ####[address] [address] RBC Auto #/vol (Bld) 2.70 10*6/uL Low 4.21-5.77 [facility] Comment on above: Performed By: #### E RTPF, CONNER, LIP, LIVP, TEGCR ####[address] [address] WBC Auto #/vol (Bld) 23.8 10*3/uL High 3.5-11.3 [facility] Comment on above: Performed By: #### E RTPF, CONNER, LIP, LIVP, TEGCR ####[address] [address] Magnesiumon 02-08-2018 Magnesium mass conc 2.4 mg/dL Normal 1.6-2.6 [facility] Comment on above: Performed By: #### E RTPF, CONNER, LIP, LIVP, TEGCR ####[address] [place] [address] Phosphorus, Inorg.on 018 Phosphorus, Inorg. 5.7 mg/dL High 2.5-4.5 [facility] Comment on above: Performed By: #### E RTPF, CONNER, LIP, LIVP, TEGCR ####[facility] [address] [place] [address] Basic Metabolic Profon 02-07 (cont.) Normal [facility] Comment on above: Result Comment: Aver age GFR for 50-59 years old: 93 mL/min/1.73sq mChronic Kidney Disease: <60 mL/min/1.73sq mKidney failure: <15 mL/min/1.73sq meGFR calculated using average adult body mass. Additional eGFR calculator available at:http://www.[employer]/multiple_crcl_2011.htm Performed By: #### E RTPF, CONNER, LIP, LIVP, TEGCR ####[address] [address] Anion gap 3 molar conc 11 mmol/L Normal 9-17 [facility] Comment on above: Performed By: #### E RTPF, CONNER, LIP, LIVP, TEGCR ####[facility] [address] [place] [address] Calcium mass conc 8.3 mg/dL Low 8.6-10.4 [facility] Comment on above: Performed By: #### E RTPF, CONNER, LIP, LIVP, TEGCR ####[facility] [address] [place] [address] Chloride molar conc 112 mmol/L High 98-107 [facility] Comment on above: Performed By: #### E RTPF, CONNER, LIP, LIVP, TEGCR ####[facility] [address] [place] [address] CO2 molar conc 16 mmol/L Low 20-31 [facility] Comment on above: Performed By: #### E RTPF, CONNER, LIP, LIVP, TEGCR ####[facility] [address] [place] [address] Creatinine mass conc 3.99 mg/dL High 0.70-1.20 [facility] Comment on above: Performed By: #### E RTPF, CONNER, LIP, LIVP, TEGCR ####[address] [address] GFR, Amer 19 mL/min Low >60 [facility] Comment on above: Performed By: #### E RTPF, CONNER, LIP, LIVP, TEGCR ####[address] [address] GFR,non Amer 16 mL/min Low >60 [facility] Comment on above: Performed By: #### E RTPF, CONNER, LIP, LIVP, TEGCR ####[address] [address] Glucose mass conc 127 mg/dL High 70-99 [facility] Comment on above: Performed By: #### E RTPF, CONNER, LIP, LIVP, TEGCR ####[address] [address] Potassium molar conc 4.6 mmol/L Normal 3.7-5.3 [facility] Comment on above: Performed By: #### E RTPF, CONNER, LIP, LIVP, TEGCR ####[address] [address] Sodium molar conc 139 mmol/L Normal 135-144 [facility] Comment on above: Performed By: #### E RTPF, CONNER, LIP, LIVP, TEGCR ####[address] [address] Urea nitrogen mass conc 71 mg/dL High 6-20 [facility] Comment on above: Performed By: #### E RTPF, CONNER, LIP, LIVP, TEGCR ####[facility] [address] [place] [address] BUN/CRE Ratio NOT REPORTED Normal 9-20 [facility] Comment on above: Performed By: #### E RTPF, CONNER, LIP, LIVP, TEGCR ####[address] [place] [address] Staging: NOT REPORTED Normal [facility] Comment on above: Performed By: #### E RTPF, CONNER, LIP, LIVP, TEGCR ####[address] [address] Brain Natri. Peptideon 02-07 Natriuretic peptide B mass conc (Bld) 1696 pg/mL High <300 [facility] Comment on above: Result Comment: Pro- BNP results cannot be compared to BNP results. Performed By: #### E RTPF, CONNER, LIP, LIVP, TEGCR ####[address] [address] Natriuretic peptide B mass conc (Bld) Normal [facility] Comment on above: Result Comment: Pro- BNP Reference Range:Rule Out: <300Grey Zone: Age <50 300-450 Age 50-75 300-900 Age >75 300-1800Usually represents mild to moderate HF but other cardiopulmonary causes cannot be ruled out.Rule In: Age <50 >450 Age 50-75 >900 Age >75 >1800 Performed By: #### E RTPF, CONNER, LIP, LIVP, TEGCR ####[address] [address] CBCon 02-07-2018 Erythrocyte distribution width Auto Ratio (RBC) 18.5 % High 11.8-14.4 [facility] Comment on above: Performed By: #### E RTPF, CONNER, LIP, LIVP, TEGCR ####[address] [place] [address] Hematocrit Auto Volume Fraction (Bld) 23.5 % Low 40.7-50.3 [facility] Comment on above: Performed By: #### E RTPF, CONNER, LIP, LIVP, TEGCR ####[address] [address] Hemoglobin mass conc (Bld) 7.4 g/dL Low 13.0-17.0 [facility] Comment on above: Performed By: #### E RTPF, CONNER, LIP, LIVP, TEGCR ####[address] [address] MCH Auto Entitic mass (RBC) 30.1 pg Normal 25.2-33.5 [facility] Comment on above: Performed By: #### E RTPF, CONNER, LIP, LIVP, TEGCR ####[address] [address] MCHC Auto mass conc (RBC) 31.5 g/dL Normal 28.4-34.8 [facility] Comment on above: Performed By: #### E RTPF, CONNER, LIP, LIVP, TEGCR ####[address] [address] MCV Auto Entitic volume (RBC) 95.5 fL Normal 82.6-102.9 [facility] Comment on above: Performed By: #### E RTPF, CONNER, LIP, LIVP, TEGCR ####[address] [address] NRBC Automated 1.5 per 100 WBC High 0.0 [facility] Comment on above: Performed By: #### E RTPF, CONNER, LIP, LIVP, TEGCR ####[address] [address] Platelet mean volume Auto Entitic volume (Bld) 11.7 fL Normal 8.1-13.5 [facility] Comment on above: Performed By: #### E RTPF, CONNER, LIP, LIVP, TEGCR ####[address] [address] Platelets Auto #/vol (Bld) 406 10*3/uL Normal 138-453 [facility] Comment on above: Performed By: #### E RTPF, CONNER, LIP, LIVP, TEGCR ####[address] [address] RBC Auto #/vol (Bld) 2.46 10*6/uL Low 4.21-5.77 [facility] Comment on above: Performed By: #### E RTPF, CONNER, LIP, LIVP, TEGCR ####[address] [address] WBC Auto #/vol (Bld) 24.8 10*3/uL High 3.5-11.3 [facility] Comment on above: Performed By: #### E RTPF, CONNER, LIP, LIVP, TEGCR ####[address] [address] Hgb/Hcton 02-07-2018 Hematocrit Auto Volume Fraction (Bld) 23.9 % Low 40.7-50.3 [facility] Comment on above: Performed By: #### E RTPF, CONNER, LIP, LIVP, TEGCR ####[address] [address] Hemoglobin mass conc (Bld) 7.5 g/dL Low 13.0-17.0 [facility] Comment on above: Performed By: #### E RTPF, CONNER, LIP, LIVP, TEGCR ####[address] [address] XR CHEST (SINGLE VIEW FRONTA L)on 02-07-2018 XR CHEST (SINGLE VIEW FRONTAL) EXAMINATION:SINGLE XRAY VIEW OF THE CHEST02/07/2018 8:48 amCOMPARISON:February 05, 2018HISTORY:ORDERING SYSTEM PROVIDED HISTORY: ventedTECHNOLOGIST PROVIDED HISTORY:ventedFINDINGS:ET tube and enteric tube in good position. Right upper extremity PICCterminates in the lower SVC as demonstrated previously. Stable cardiaccontours. Mild pulmonary venous congestion with bibasilar opacities similarto prior study. No pneumothorax is apparent.IMPRESSION: 1. Stable chest.2. Supporting devices are unchanged.Interpreted by:NADEGE Lancasterigned by:Hebert Best MD02/07/18inal result Normal [facility] Amylaseon 02-06-2018 Amylase enzyme act/vol 167 U/L High 28-100 [facility] Comment on above: Performed By: #### E RTPF, CONNER, LIP, LIVP, TEGCR ####[place] [address] Basic Metabolic Profon 02-06 Anion gap 3 molar conc 15 mmol/L Normal 9-17 [facility] Comment on above: Performed By: #### E RTPF, CONNER, LIP, LIVP, TEGCR ####[address] [address] Chloride molar conc 112 mmol/L High 98-107 [facility] Comment on above: Performed By: #### E RTPF, CONNER, LIP, LIVP, TEGCR ####[facility] [address] [place] [address] Potassium molar conc 4.5 mmol/L Normal 3.7-5.3 [facility] Comment on above: Performed By: #### E RTPF, CONNER, LIP, LIVP, TEGCR ####[facility] [address] [place] [address] Sodium molar conc 143 mmol/L Normal 135-144 [facility] Comment on above: Performed By: #### E RTPF, CONNER, LIP, LIVP, TEGCR ####[address] [place] [address] (cont.) Normal [facility] Comment on above: Result Comment: Aver age GFR for 50-59 years old: 93 mL/min/1.73sq mChronic Kidney Disease: <60 mL/min/1.73sq mKidney failure: <15 mL/min/1.73sq meGFR calculated using average adult body mass. Additional eGFR calculator available at:http://www.[employer]/multiple_crcl_2012.htm Performed By: #### E RTPF, CONNER, LIP, LIVP, TEGCR ####[address] [address] Calcium mass conc 8.0 mg/dL Low 8.6-10.4 [facility] Comment on above: Performed By: #### E RTPF, CONNER, LIP, LIVP, TEGCR ####[address] [address] CO2 molar conc 16 mmol/L Low 20-31 [facility] Comment on above: Performed By: #### E RTPF, CONNER, LIP, LIVP, TEGCR ####[address] [address] Creatinine mass conc 4.02 mg/dL High 0.70-1.20 [facility] Comment on above: Performed By: #### E RTPF, CONNER, LIP, LIVP, TEGCR ####[address] [place] [address] GFR, Amer 19 mL/min Low >60 [facility] Comment on above: Performed By: #### E RTPF, CONNER, LIP, LIVP, TEGCR ####[address] [place] [address] GFR,non Amer 15 mL/min Low >60 [facility] Comment on above: Performed By: #### E RTPF, CONNER, LIP, LIVP, TEGCR ####[address] [place] [address] Glucose mass conc 131 mg/dL High 70-99 [facility] Comment on above: Performed By: #### E RTPF, CONNER, LIP, LIVP, TEGCR ####[address] [address] Urea nitrogen mass conc 72 mg/dL High 6-20 [facility] Comment on above: Performed By: #### E RTPF, CONNER, LIP, LIVP, TEGCR ####[address] [place] [address] BUN/CRE Ratio NOT REPORTED Normal -20 [facility] Comment on above: Performed By: #### E RTPF, CONNER, LIP, LIVP, TEGCR ####[address] [address] Staging: NOT REPORTED Normal [facility] Comment on above: Performed By: #### E RTPF, CONNER, LIP, LIVP, TEGCR ####[address] [address] Brain Natri. Peptideon 02-06 Natriuretic peptide B mass conc (Bld) Normal [facility] Comment on above: Result Comment: Pro- BNP Reference Range:Rule Out: <300Grey Zone: Age <50 300-450 Age 50-75 300-900 Age >75 300-1800Usually represents mild to moderate HF but other cardiopulmonary causes cannot be ruled out.Rule In: Age <50 >450 Age 50-75 >900 Age >75 >1800 Performed By: #### E RTPF, CONNER, LIP, LIVP, TEGCR ####[address] [address] Natriuretic peptide B mass conc (Bld) 2505 pg/mL High <300 [facility] Comment on above: Result Comment: Pro- BNP results cannot be compared to BNP results. Performed By: #### E RTPF, CONNER, LIP, LIVP, TEGCR ####[address] [address] CBCon 02-06-2018 Erythrocyte distribution width Auto Ratio (RBC) 20.3 % High 11.8-14.4 [facility] Comment on above: Performed By: #### E RTPF, CONNER, LIP, LIVP, TEGCR ####[address] [address] Hematocrit Auto Volume Fraction (Bld) 22.9 % Low 40.7-50.3 [facility] Comment on above: Performed By: #### E RTPF, CONNER, LIP, LIVP, TEGCR ####[address] [address] Hemoglobin mass conc (Bld) 6.9 g/dL Critically low 13.0-17.0 [facility] Comment on above: Performed By: #### E RTPF, CONNER, LIP, LIVP, TEGCR ####[address] [address] MCH Auto Entitic mass (RBC) 29.2 pg Normal 25.2-33.5 [facility] Comment on above: Performed By: #### E RTPF, CONNER, LIP, LIVP, TEGCR ####[address] [address] MCHC Auto mass conc (RBC) 30.1 g/dL Normal 28.4-34.8 [facility] Comment on above: Performed By: #### E RTPF, CONNER, LIP, LIVP, TEGCR ####[address] [address] MCV Auto Entitic volume (RBC) 97.0 fL Normal 82.6-102.9 [facility] Comment on above: Performed By: #### E RTPF, CONNER, LIP, LIVP, TEGCR ####[address] [address] NRBC Automated 1.8 per 100 WBC High 0.0 [facility] Comment on above: Performed By: #### E RTPF, CONNER, LIP, LIVP, TEGCR ####[address] [address] Platelet mean volume Auto Entitic volume (Bld) 11.9 fL Normal 8.1-13.5 [facility] Comment on above: Performed By: #### E RTPF, CONNER, LIP, LIVP, TEGCR ####[address] [address] Platelets Auto #/vol (Bld) 399 10*3/uL Normal 138-453 [facility] Comment on above: Performed By: #### E RTPF, CONENR, LIP, LIVP, TEGCR ####[address] [address] RBC Auto #/vol (Bld) 2.36 10*6/uL Low 4.21-5.77 [facility] Comment on above: Performed By: #### E RTPF, CONNER, LIP, LIVP, TEGCR ####[address] [address] WBC Auto #/vol (Bld) 25.6 10*3/uL High 3.5-11.3 [facility] Comment on above: Performed By: #### E RTPF, CONNER, LIP, LIVP, TEGCR ####[address] [address] Creatine Kinaseon 02-06-2018 CK enzyme act/vol 456 U/L High 39-308 [facility] Comment on above: Performed By: #### E RTPF, CONNER, LIP, LIVP, TEGCR ####[address] [place] [address] Lactic Acid,Whole Blon 02-06 Lactic Acid,Whole Bl 0.7 mmol/L Normal 0.7-2.1 [facility] Comment on above: Performed By: #### E RTPF, CONNER, LIP, LIVP, TEGCR ####[facility] [address] [place] [address] Lactic Acid,Whole Bl 0.8 mmol/L Normal 0.7-2.1 [facility] Comment on above: Performed By: #### E RTPF, CONNER, LIP, LIVP, TEGCR ####[address] [place] [address] Lipaseon 02-06-2018 Lipase enzyme act/vol 51 U/L Normal 13-60 [facility] Comment on above: Performed By: #### E RTPF, CONNER, LIP, LIVP, TEGCR ####[address] [place] [address] Myoglobinon 02-06-2018 Myoglobin mass conc 471 ng/mL High 28-72 [facility] Comment on above: Performed By: #### E RTPF, CONNER, LIP, LIVP, TEGCR ####[address] [place] [address] Basic Metabolic Profon 02-05 (cont.) Normal [facility] Comment on above: Result Comment: Aver age GFR for 50-59 years old: 93 mL/min/1.73sq mChronic Kidney Disease: <60 mL/min/1.73sq mKidney failure: <15 mL/min/1.73sq meGFR calculated using average adult body mass. Additional eGFR calculator available at:http://www.[employer]/multiple_crcl_2011.htm Performed By: #### E RTPF, CONNER, LIP, LIVP, TEGCR ####[address] [place] [address] Anion gap 3 molar conc 12 mmol/L Normal 9-17 [facility] Comment on above: Performed By: #### E RTPF, CONNER, LIP, LIVP, TEGCR ####[address] [address] Calcium mass conc 7.6 mg/dL Low 8.6-10.4 [facility] Comment on above: Performed By: #### E RTPF, CONNER, LIP, LIVP, TEGCR ####[address] [address] Chloride molar conc 110 mmol/L High 98-107 [facility] Comment on above: Performed By: #### E RTPF, CONNER, LIP, LIVP, TEGCR ####[address] [address] CO2 molar conc 16 mmol/L Low 20-31 [facility] Comment on above: Performed By: #### E RTPF, CONNRE, LIP, LIVP, TEGCR ####[address] [address] Creatinine mass conc 3.63 mg/dL High 0.70-1.20 [facility] Comment on above: Performed By: #### E RTPF, CONNER, LIP, LIVP, TEGCR ####[facility] [place] [address] GFR, Amer 21 mL/min Low >60 [facility] Comment on above: Performed By: #### E RTPF, CONNER, LIP, LIVP, TEGCR ####[address] [address] GFR,non Amer 17 mL/min Low >60 [facility] Comment on above: Performed By: #### E RTPF, CONNER, LIP, LIVP, TEGCR ####[address] [place] [address] Glucose mass conc 132 mg/dL High 70-99 [facility] Comment on above: Performed By: #### E RTPF, CONNER, LIP, LIVP, TEGCR ####[facility] [address] [place] [address] Potassium molar conc 4.1 mmol/L Normal 3.7-5.3 [facility] Comment on above: Performed By: #### E RTPF, CONNER, LIP, LIVP, TEGCR ####[address] [address] Sodium molar conc 138 mmol/L Normal 135-144 [facility] Comment on above: Performed By: #### E RTPF, CONNER, LIP, LIVP, TEGCR ####[facility] [place] [address] Urea nitrogen mass conc 69 mg/dL High 6-20 [facility] Comment on above: Performed By: #### E RTPF, CONNER, LIP, LIVP, TEGCR ####[facility] [place] [address] BUN/CRE Ratio NOT REPORTED Normal -20 [facility] Comment on above: Performed By: #### E RTPF, CONNER, LIP, LIVP, TEGCR ####[address] [place] [address] Staging: NOT REPORTED Normal [facility] Comment on above: Performed By: #### E RTPF, CONNER, LIP, LIVP, TEGCR ####[facility] [place] [address] Calcium mass conc 7.6 mg/dL Low 8.6-10.4 [facility] Comment on above: Performed By: #### E RTPF, CONNER, LIP, LIVP, TEGCR ####[address] [place] [address] Urea nitrogen mass conc 72 mg/dL High 6-20 [facility] Comment on above: Performed By: #### E RTPF, CONNER, LIP, LIVP, TEGCR ####[facility] [address] [place] [address] Creatinine mass conc 3.70 mg/dL High 0.70-1.20 [facility] Comment on above: Performed By: #### E RTPF, CONNER, LIP, LIVP, TEGCR ####[address] [place] [address] GFR, Amer 21 mL/min Low >60 [facility] Comment on above: Performed By: #### E RTPF, CONNER, LIP, LIVP, TEGCR ####[facility] [place] [address] GFR,non Amer 17 mL/min Low >60 [facility] Comment on above: Performed By: #### E RTPF, CONNER, LIP, LIVP, TEGCR ####[address] [address] (cont.) Normal [facility] Comment on above: Result Comment: Aver age GFR for 50-59 years old: 93 mL/min/1.73sq mChronic Kidney Disease: <60 mL/min/1.73sq mKidney failure: <15 mL/min/1.73sq meGFR calculated using average adult body mass. Additional eGFR calculator available at:http://www.[employer]/multiple_crcl_2012.htm Performed By: #### E RTPF, CONNER, LIP, LIVP, TEGCR ####[facility] [place] [address] Anion gap 3 molar conc 11 mmol/L Normal 9-17 [facility] Comment on above: Performed By: #### E RTPF, CONNER, LIP, LIVP, TEGCR ####[facility] [place] [address] Chloride molar conc 110 mmol/L High 98-107 [facility] Comment on above: Performed By: #### E RTPF, CONNER, LIP, LIVP, TEGCR ####[facility] [place] [address] CO2 molar conc 17 mmol/L Low 20-31 [facility] Comment on above: Performed By: #### E RTPF, CONNER, LIP, LIVP, TEGCR ####[address] [address] Glucose mass conc 159 mg/dL High 70-99 [facility] Comment on above: Performed By: #### E RTPF, CONNER, LIP, LIVP, TEGCR ####[facility] [place] [address] Potassium molar conc 4.3 mmol/L Normal 3.7-5.3 [facility] Comment on above: Performed By: #### E RTPF, CONNER, LIP, LIVP, TEGCR ####[facility] [address] [place] [address] Sodium molar conc 138 mmol/L Normal 135-144 [facility] Comment on above: Performed By: #### E RTPF, CONNER, LIP, LIVP, TEGCR ####[address] [place] [address] BUN/CRE Ratio NOT REPORTED Normal 9-20 [facility] Comment on above: Performed By: #### E RTPF, CONNER, LIP, LIVP, TEGCR ####[address] [place] [address] Staging: NOT REPORTED Normal [facility] Comment on above: Performed By: #### E RTPF, CONNER, LIP, LIVP, TEGCR ####[address] [place] [address] (cont.) Normal [facility] Comment on above: Result Comment: Aver age GFR for 50-59 years old: 93 mL/min/1.73sq mChronic Kidney Disease: <60 mL/min/1.73sq mKidney failure: <15 mL/min/1.73sq meGFR calculated using average adult body mass. Additional eGFR calculator available at:http://www.[employer]/multiple_crcl_2012.htm Performed By: #### E RTPF, CONNER, LIP, LIVP, TEGCR ####[address] [address] Anion gap 3 molar conc 14 mmol/L Normal 9-17 [facility] Comment on above: Performed By: #### E RTPF, CONNER, LIP, LIVP, TEGCR ####[address] [address] Calcium mass conc 7.6 mg/dL Low 8.6-10.4 [facility] Comment on above: Performed By: #### E RTPF, CONNER, LIP, LIVP, TEGCR ####[address] [place] [address] Chloride molar conc 113 mmol/L High 98-107 [facility] Comment on above: Performed By: #### E RTPF, CONNER, LIP, LIVP, TEGCR ####[address] [place] [address] CO2 molar conc 18 mmol/L Low 20-31 [facility] Comment on above: Performed By: #### E RTPF, CONNER, LIP, LIVP, TEGCR ####[facility] [address] [place] [address] Creatinine mass conc 3.53 mg/dL High 0.70-1.20 [facility] Comment on above: Performed By: #### E RTPF, CONNER, LIP, LIVP, TEGCR ####[facility] [address] [place] [address] GFR, Amer 22 mL/min Low >60 [facility] Comment on above: Performed By: #### E RTPF, CONNER, LIP, LIVP, TEGCR ####[facility] [address] [place] [address] GFR,non Amer 18 mL/min Low >60 [facility] Comment on above: Performed By: #### E RTPF, CONNER, LIP, LIVP, TEGCR ####[facility] [address] [place] [address] Glucose mass conc 133 mg/dL High 70-99 [facility] Comment on above: Performed By: #### E RTPF, CONNER, LIP, LIVP, TEGCR ####[facility] [address] [place] [address] Potassium molar conc 4.3 mmol/L Normal 3.7-5.3 [facility] Comment on above: Performed By: #### E RTPF, CONNER, LIP, LIVP, TEGCR ####[facility] [address] [place] [address] Sodium molar conc 145 mmol/L High 135-144 [facility] Comment on above: Performed By: #### E RTPF, CONNER, LIP, LIVP, TEGCR ####[facility] [address] [place] [address] Urea nitrogen mass conc 66 mg/dL High 6-20 [facility] Comment on above: Performed By: #### E RTPF, CONNER, LIP, LIVP, TEGCR ####[address] [address] Blood Bank Specimenon 2017 Blood Bank Specimen NOT REPORTED Normal [facility] CBCon 02-05-2018 Erythrocyte distribution width Auto Ratio (RBC) 18.7 % High 11.8-14.4 [facility] Comment on above: Performed By: #### E RTPF, CONNER, LIP, LIVP, TEGCR ####[address] [address] Hematocrit Auto Volume Fraction (Bld) 18.8 % Low 40.7-50.3 [facility] Comment on above: Performed By: #### E RTPF, CONNER, LIP, LIVP, TEGCR ####[address] [address] Hemoglobin mass conc (Bld) 5.5 g/dL Critically low 13.0-17.0 [facility] Comment on above: Performed By: #### E RTPF, CONNER, LIP, LIVP, TEGCR ####[address] [address] MCH Auto Entitic mass (RBC) 30.6 pg Normal 25.2-33.5 [facility] Comment on above: Performed By: #### E RTPF, CONNER, LIP, LIVP, TEGCR ####[address] [address] MCHC Auto mass conc (RBC) 29.3 g/dL Normal 28.4-34.8 [facility] Comment on above: Performed By: #### E RTPF, CONNER, LIP, LIVP, TEGCR ####[address] [address] MCV Auto Entitic volume (RBC) 104.4 fL High 82.6-102.9 [facility] Comment on above: Performed By: #### E RTPF, CONNER, LIP, LIVP, TEGCR ####[address] [address] NRBC Automated 1.3 per 100 WBC High 0.0 [facility] Comment on above: Performed By: #### E RTPF, CONNER, LIP, LIVP, TEGCR ####[address] [address] Platelet mean volume Auto Entitic volume (Bld) 12.0 fL Normal 8.1-13.5 [facility] Comment on above: Performed By: #### E RTPF, CONNER, LIP, LIVP, TEGCR ####[address] [address] Platelets Auto #/vol (Bld) 421 10*3/uL Normal 138-453 [facility] Comment on above: Performed By: #### E RTPF, CONNER, LIP, LIVP, TEGCR ####[address] [address] RBC Auto #/vol (Bld) 1.80 10*6/uL Low 4.21-5.77 [facility] Comment on above: Performed By: #### E RTPF, CONNER, LIP, LIVP, TEGCR ####[address] [address] WBC Auto #/vol (Bld) 28.9 10*3/uL High 3.5-11.3 [facility] Comment on above: Performed By: #### E RTPF, CONNER, LIP, LIVP, TEGCR ####[address] [address] Cult,Bloodon 02-05-2018 Cult,Blood Specimen Description .BLOOD Special Requests RT ARM 2ML Culture NO GROWTH 6 DAYS Report Status FINAL 02/05/2018 Normal [facility] Comment on above: Performed By: #### E RTPF, CONNER, LIP, LIVP, TEGCR ####[address] [address] Cult,Blood Specimen Description .BLOOD Special Requests RT ARM 5ML Culture NO GROWTH 6 DAYS Report Status FINAL 02/05/2018 Normal [facility] Comment on above: Performed By: #### E RTPF, CONNER, LIP, LIVP, TEGCR ####[address] [address] Hgb/Hcton 02-05-2018 Hematocrit Auto Volume Fraction (Bld) 22.9 % Low 40.7-50.3 [facility] Comment on above: Performed By: #### E RTPF, CONNER, LIP, LIVP, TEGCR ####[address] [address] Hemoglobin mass conc (Bld) 6.9 g/dL Critically low 13.0-17.0 [facility] Comment on above: Performed By: #### E RTPF, CONNER, LIP, LIVP, TEGCR ####[address] [address] TEG, Rapid Citratedon 2017 ACT TEG 89.0 sec Normal 86-118 [facility] Comment on above: Performed By: #### E RTPF, CONNER, LIP, LIVP, TEGCR ####[address] [address] Angle, Rapid TEG 81.8 deg High 64-80 [facility] Comment on above: Performed By: #### E RTPF, CONNER, LIP, LIVP, TEGCR ####[address] [address] EPL TEG 2.0 % Normal 0.0-15.0 [facility] Comment on above: Performed By: #### E RTPF, CONNER, LIP, LIVP, TEGCR ####[address] [address] Heparin Therapy: None Normal [facility] Comment on above: Performed By: #### E RTPF, CONNER, LIP, LIVP, TEGCR ####[address] [address] K (Kinetics) rTEG 0.8 min Low 1.0-2.0 [facility] Comment on above: Performed By: #### E RTPF, CONNER, LIP, LIVP, TEGCR ####[place] [address] LY30 (Lysis) TEG 2.0 % Normal 0-8 [facility] Comment on above: Performed By: #### E RTPF, CONNER, LIP, LIVP, TEGCR ####[place] [address] MA Rapid TEG 81.9 mm High 52-71 [facility] Comment on above: Performed By: #### E RTPF, CONNER, LIP, LIVP, TEGCR ####[address] [address] R(Reaction Time)rTEG 0.4 min Normal 0.0-1.0 [facility] Comment on above: Performed By: #### E RTPF, CONNER, LIP, LIVP, TEGCR ####[place] [address] TEG Comment ACT is the only FDA approved component of the Rapid TEG. Normal [facility] Comment on above: Performed By: #### E RTPF, CONNER, LIP, LIVP, TEGCR ####[address] [address] Type + Screenon 02-05-2018 Type + Screen Sample Expiration Arm Band Number [id number] ABO/Rh(D) A POSITIVE Antibody Screen NEGATIVE Unit Number [id number] Blood Component Type Leukocyte Reduced Red Cell Unit Division 00 Status of Unit TRANSFUSED Transfusion Status OK TO TRANSFUSE Crossmatch Result COMPATIBLE Unit Number [id number] Blood Component Type Leukocyte Reduced Red Cell Unit Division 00 Status of Unit TRANSFUSED Transfusion Status OK TO TRANSFUSE Crossmatch Result COMPATIBLE Normal [facility] Comment on above: Performed By: #### E RTPF, CONNER, LIP, LIVP, TEGCR ####[facility] [address] [place] [address] XR CHEST PORTABLEon 02-06-20 18 XR CHEST PORTABLE EXAMINATION:SINGLE X RAY VIEW OF THE CHEST02/05/2018 2:05 amCOMPARISON:02/03/2018HISTOR Y:ORDERING SYSTEM PROVIDED HISTORY: ET tube placementTECHNOLOGIST PROVIDED HISTORY:ET tube placementFINDINGS:An endotracheal tube has been placed in good position. Nasogastric tube isalso in good position. There is a right arm PICC line in good position.There is increasing perihilar and lower lobe airspace disease with smallright larger than left bilateral pleural effusions. The heart is borderlineenlarged.IMPRESSION : The endotracheal tube, nasogastric tube and right arm PICC line are in goodposition.Mildly increased bilateral perihilar and lower lobe airspace disease andincreasing small bilateral pleural effusions. Worsening pulmonary edemasuspected.Interpreted by:NADEGE Mcarthurigned by:Jack Jones MD02/05/18inal result Normal [facility] Ammoniaon 02-04-2018 Ammonia mass conc (P) 40 umol/L Normal 16-60 [facility] Comment on above: Performed By: #### E RTPF, CONNER, LIP, LIVP, TEGCR ####[facility] [address] [place] [address] Basic Metabolic Profon 02-04 BUN/CRE Ratio NOT REPORTED Normal - [facility] Comment on above: Performed By: #### E RTPF, CONNER, LIP, LIVP, TEGCR ####[address] [place] [address] Staging: NOT REPORTED Normal [facility] Comment on above: Performed By: #### E RTPF, CONNER, LIP, LIVP, TEGCR ####[address] [place] [address] (cont.) Normal [facility] Comment on above: Result Comment: Aver age GFR for 50-59 years old: 93 mL/min/1.73sq mChronic Kidney Disease: <60 mL/min/1.73sq mKidney failure: <15 mL/min/1.73sq meGFR calculated using average adult body mass. Additional eGFR calculator available at:http://www.[employer]/multiple_crcl_2012.htm Performed By: #### E RTPF, CONNER, LIP, LIVP, TEGCR ####[address] [address] Anion gap 3 molar conc 12 mmol/L Normal 9-17 [facility] Comment on above: Performed By: #### E RTPF, CONNER, LIP, LIVP, TEGCR ####[address] [place] [address] Calcium mass conc 7.8 mg/dL Low 8.6-10.4 [facility] Comment on above: Performed By: #### E RTPF, CONNER, LIP, LIVP, TEGCR ####[address] [place] [address] Chloride molar conc 117 mmol/L High 98-107 [facility] Comment on above: Performed By: #### E RTPF, CONNER, LIP, LIVP, TEGCR ####[address] [place] [address] CO2 molar conc 18 mmol/L Low 20-31 [facility] Comment on above: Performed By: #### E RTPF, CONNER, LIP, LIVP, TEGCR ####[address] [address] Creatinine mass conc 3.52 mg/dL High 0.70-1.20 [facility] Comment on above: Performed By: #### E RTPF, CONNER, LIP, LIVP, TEGCR ####[facility] [address] [place] [address] GFR, Amer 22 mL/min Low >60 [facility] Comment on above: Performed By: #### E RTPF, CONNER, LIP, LIVP, TEGCR ####[address] [address] GFR,non Amer 18 mL/min Low >60 [facility] Comment on above: Performed By: #### E RTPF, CONNER, LIP, LIVP, TEGCR ####[address] [address] Glucose mass conc 149 mg/dL High 70-99 [facility] Comment on above: Performed By: #### E RTPF, CONNER, LIP, LIVP, TEGCR ####[facility] [place] [address] Potassium molar conc 4.4 mmol/L Normal 3.7-5.3 [facility] Comment on above: Performed By: #### E RTPF, CONNER, LIP, LIVP, TEGCR ####[address] [address] Sodium molar conc 147 mmol/L High 135-144 [facility] Comment on above: Performed By: #### E RTPF, CONNER, LIP, LIVP, TEGCR ####[address] [address] Urea nitrogen mass conc 64 mg/dL High 6-20 [facility] Comment on above: Performed By: #### E RTPF, CONNER, LIP, LIVP, TEGCR ####[facility] [address] [place] [address] BUN/CRE Ratio NOT REPORTED Normal - [facility] Comment on above: Performed By: #### E RTPF, CONNER, LIP, LIVP, TEGCR ####[facility] [address] [place] [address] Staging: NOT REPORTED Normal [facility] Comment on above: Performed By: #### E RTPF, CONNER, LIP, LIVP, TEGCR ####[address] [place] [address] (cont.) Normal [facility] Comment on above: Result Comment: Aver age GFR for 50-59 years old: 93 mL/min/1.73sq mChronic Kidney Disease: <60 mL/min/1.73sq mKidney failure: <15 mL/min/1.73sq meGFR calculated using average adult body mass. Additional eGFR calculator available at:http://www.[employer]/multiple_crcl_2012.htm Performed By: #### E RTPF, CONNER, LIP, LIVP, TEGCR ####[facility] [address] [place] [address] Anion gap 3 molar conc 13 mmol/L Normal -17 [facility] Comment on above: Performed By: #### E RTPF, CONNER, LIP, LIVP, TEGCR ####[facility] [address] [place] [address] Calcium mass conc 7.5 mg/dL Low 8.6-10.4 [facility] Comment on above: Performed By: #### E RTPF, CONNER, LIP, LIVP, TEGCR ####[address] [place] [address] Chloride molar conc 117 mmol/L High 98-107 [facility] Comment on above: Performed By: #### E RTPF, CONNER, LIP, LIVP, TEGCR ####[address] [address] CO2 molar conc 19 mmol/L Low 20-31 [facility] Comment on above: Performed By: #### E RTPF, CONNER, LIP, LIVP, TEGCR ####[address] [address] Creatinine mass conc 3.36 mg/dL High 0.70-1.20 [facility] Comment on above: Performed By: #### E RTPF, CONNER, LIP, LIVP, TEGCR ####[address] [address] GFR, Amer 23 mL/min Low >60 [facility] Comment on above: Performed By: #### E RTPF, CONNER, LIP, LIVP, TEGCR ####[address] [address] GFR,non Amer 19 mL/min Low >60 [facility] Comment on above: Performed By: #### E RTPF, CONNER, LIP, LIVP, TEGCR ####[address] [address] Glucose mass conc 140 mg/dL High 70-99 [facility] Comment on above: Performed By: #### E RTPF, CONNER, LIP, LIVP, TEGCR ####[address] [address] Potassium molar conc 4.4 mmol/L Normal 3.7-5.3 [facility] Comment on above: Performed By: #### E RTPF, CONNER, LIP, LIVP, TEGCR ####[facility] [address] [place] [address] Sodium molar conc 149 mmol/L High 135-144 [facility] Comment on above: Performed By: #### E RTPF, CONNER, LIP, LIVP, TEGCR ####[facility] [place] [address] Urea nitrogen mass conc 61 mg/dL High 6-20 [facility] Comment on above: Performed By: #### E RTPF, CONNER, LIP, LIVP, TEGCR ####[address] [place] [address] BUN/CRE Ratio NOT REPORTED Normal -20 [facility] Comment on above: Performed By: #### E RTPF, CONNER, LIP, LIVP, TEGCR ####[address] [address] Staging: NOT REPORTED Normal [facility] Comment on above: Performed By: #### E RTPF, CONNER, LIP, LIVP, TEGCR ####[address] [address] (cont.) Normal [facility] Comment on above: Result Comment: Aver age GFR for 50-59 years old: 93 mL/min/1.73sq mChronic Kidney Disease: <60 mL/min/1.73sq mKidney failure: <15 mL/min/1.73sq meGFR calculated using average adult body mass. Additional eGFR calculator available at:http://www.[employer].com/multiple_crcl_2012.htm Performed By: #### E RTPF, CONNER, LIP, LIVP, TEGCR ####[facility] [place] [address] Anion gap 3 molar conc 15 mmol/L Normal 9-17 [facility] Comment on above: Performed By: #### E RTPF, CONNER, LIP, LIVP, TEGCR ####[facility] [address] [place] [address] Calcium mass conc 7.5 mg/dL Low 8.6-10.4 [facility] Comment on above: Performed By: #### E RTPF, CONNER, LIP, LIVP, TEGCR ####[facility] [place] [address] Chloride molar conc 114 mmol/L High 98-107 [facility] Comment on above: Performed By: #### E RTPF, CONNER, LIP, LIVP, TEGCR ####[address] [place] [address] CO2 molar conc 17 mmol/L Low 20-31 [facility] Comment on above: Performed By: #### E RTPF, CONNER, LIP, LIVP, TEGCR ####[address] [address] Creatinine mass conc 3.20 mg/dL High 0.70-1.20 [facility] Comment on above: Performed By: #### E RTPF, CONNER, LIP, LIVP, TEGCR ####[facility] [place] [address] GFR, Amer 24 mL/min Low >60 [facility] Comment on above: Performed By: #### E RTPF, CONNER, LIP, LIVP, TEGCR ####[facility] [address] [place] [address] GFR,non Amer 20 mL/min Low >60 [facility] Comment on above: Performed By: #### E RTPF, CONNER, LIP, LIVP, TEGCR ####[facility] [place] [address] Glucose mass conc 152 mg/dL High 70-99 [facility] Comment on above: Performed By: #### E RTPF, CONNER, LIP, LIVP, TEGCR ####[address] [place] [address] Potassium molar conc 4.4 mmol/L Normal 3.7-5.3 [facility] Comment on above: Performed By: #### E RTPF, CONNER, LIP, LIVP, TEGCR ####[address] [address] Sodium molar conc 146 mmol/L High 135-144 [facility] Comment on above: Performed By: #### E RTPF, CONNER, LIP, LIVP, TEGCR ####[address] [address] Urea nitrogen mass conc 57 mg/dL High 6-20 [facility] Comment on above: Performed By: #### E RTPF, CONNER, LIP, LIVP, TEGCR ####[address] [address] BUN/CRE Ratio NOT REPORTED Normal 9-20 [facility] Comment on above: Performed By: #### E RTPF, CONNER, LIP, LIVP, TEGCR ####[address] [address] Staging: NOT REPORTED Normal [facility] Comment on above: Performed By: #### E RTPF, CONNER, LIP, LIVP, TEGCR ####[address] [place] [address] CBCon 02-04-2018 Erythrocyte distribution width Auto Ratio (RBC) 18.7 % High 11.8-14.4 [facility] Comment on above: Performed By: #### E RTPF, CONNER, LIP, LIVP, TEGCR ####[address] [address] Hematocrit Auto Volume Fraction (Bld) 24.4 % Low 40.7-50.3 [facility] Comment on above: Performed By: #### E RTPF, CONNER, LIP, LIVP, TEGCR ####[address] [address] Hemoglobin mass conc (Bld) 7.0 g/dL Critically low 13.0-17.0 [facility] Comment on above: Performed By: #### E RTPF, CONNER, LIP, LIVP, TEGCR ####[address] [address] MCH Auto Entitic mass (RBC) 30.3 pg Normal 25.2-33.5 [facility] Comment on above: Performed By: #### E RTPF, CONNER, LIP, LIVP, TEGCR ####[address] [address] MCHC Auto mass conc (RBC) 28.7 g/dL Normal 28.4-34.8 [facility] Comment on above: Performed By: #### E RTPF, CONNER, LIP, LIVP, TEGCR ####[address] [address] MCV Auto Entitic volume (RBC) 105.6 fL High 82.6-102.9 [facility] Comment on above: Performed By: #### E RTPF, CONNER, LIP, LIVP, TEGCR ####[address] [address] NRBC Automated 2.0 per 100 WBC High 0.0 [facility] Comment on above: Performed By: #### E RTPF, CONNER, LIP, LIVP, TEGCR ####[address] [address] Platelet mean volume Auto Entitic volume (Bld) 12.0 fL Normal 8.1-13.5 [facility] Comment on above: Performed By: #### E RTPF, CONNER, LIP, LIVP, TEGCR ####[address] [address] Platelets Auto #/vol (Bld) 433 10*3/uL Normal 138-453 [facility] Comment on above: Performed By: #### E RTPF, CONNER, LIP, LIVP, TEGCR ####[address] [address] RBC Auto #/vol (Bld) 2.31 10*6/uL Low 4.21-5.77 [facility] Comment on above: Performed By: #### E RTPF, CONNER, LIP, LIVP, TEGCR ####[address] [address] WBC Auto #/vol (Bld) 31.9 10*3/uL Critically high 3.5-11.3 [facility] Comment on above: Performed By: #### E RTPF, CONNER, LIP, LIVP, TEGCR ####[address] [address] Creatinine,Random Uron 02-04 Creatinine mass conc 50.3 mg/dL Normal 39.0-259.0 [facility] Comment on above: Performed By: #### E RTPF, CONNER, LIP, LIVP, TEGCR ####[address] [address] Cult,Aerobe/Anaerobeon 02-04 Cult,Aerobe/Anaerobe Specimen Descriptio n .ABDOMEN .DRAINAGE SWABSpecial Requests NOT REPORTEDDirect Exam MANY NEUTROPHILS NO BACTERIA SEEN Culture NO GROWTH 5 DAYSReport Status FINAL 02/04/2018 Normal [facility] Comment on above: Performed By: #### E RTPF, CONNER, LIP, LIVP, TEGCR ####[address] [place] [address] Lactate, Sepsison 02-04-2018 Lactic Acid,Sep Wbld 1.1 mmol/L Normal 0.5-1.9 [facility] Comment on above: Performed By: #### E RTPF, CONNER, LIP, LIVP, TEGCR ####[address] [address] Lactic Acid, Sepsis NOT REPORTED Normal 0.5-1.9 [facility] Comment on above: Performed By: #### E RTPF, CONNER, LIP, LIVP, TEGCR ####[address] [address] Liver Profileon 02-04-2018 Albumin mass conc 1.9 g/dL Low 3.5-5.2 [facility] Comment on above: Performed By: #### E RTPF, CONNER, LIP, LIVP, TEGCR ####[address] [address] Albumin/Globulin mass ratio 0.5 {ratio} Low 1.0-2.5 [facility] Comment on above: Performed By: #### E RTPF, CONNER, LIP, LIVP, TEGCR ####[address] [address] Alkaline Phos 80 U/L Normal 40-129 [facility] Comment on above: Performed By: #### E RTPF, CONNER, LIP, LIVP, TEGCR ####[address] [address] ALT enzyme act/vol 15 U/L Normal 5-41 [facility] Comment on above: Performed By: #### E RTPF, CONNER, LIP, LIVP, TEGCR ####[address] [address] AST enzyme act/vol 39 U/L Normal <40 [facility] Comment on above: Performed By: #### E RTPF, CONNER, LIP, LIVP, TEGCR ####[address] [place] [address] Bilirubin Ql (U) 0.46 mg/dL Normal 0.3-1.2 [facility] Comment on above: Performed By: #### E RTPF, CONNER, LIP, LIVP, TEGCR ####[address] [address] Bilirubin, Indirect 0.18 mg/dL Normal 0.00-1.00 [facility] Comment on above: Performed By: #### E RTPF, CONNER, LIP, LIVP, TEGCR ####[address] [place] [address] Bilirubin.direct mass conc 0.28 mg/dL Normal <0.31 [facility] Comment on above: Performed By: #### E RTPF, CONNER, LIP, LIVP, TEGCR ####[facility] [place] [address] Protein mass conc 6.1 g/dL Low 6.4-8.3 [facility] Comment on above: Performed By: #### E RTPF, CONNER, LIP, LIVP, TEGCR ####[address] [address] Globulin Calculated mass conc (S) NOT REPORTED Normal 1.5-3.8 [facility] Comment on above: Performed By: #### E RTPF, CONNER, LIP, LIVP, TEGCR ####[address] [place] [address] Osmolalityon 02-04-2018 Osmolality 331 mOsm/kg Critically high 275-295 [facility] Comment on above: Performed By: #### E RTPF, CONNER, LIP, LIVP, TEGCR ####[address] [place] [address] Osmolality, Urineon 02-05-20 18 Osmolality - Urine 286 mOsm/kg Normal 80-1300 [facility] Comment on above: Performed By: #### E RTPF, CONNER, LIP, LIVP, TEGCR ####[address] [place] [address] Sodium, Random Uron 02-05-20 18 Na Conc. Urine 26 mmol/L Normal [facility] Comment on above: Result Comment: No n ormal range established. Performed By: #### E RTPF, CONNER, LIP, LIVP, TEGCR ####[address] [address] Basic Metabolic Profon 02-03 (cont.) Normal [facility] Comment on above: Result Comment: Aver age GFR for 50-59 years old: 93 mL/min/1.73sq mChronic Kidney Disease: <60 mL/min/1.73sq mKidney failure: <15 mL/min/1.73sq meGFR calculated using average adult body mass. Additional eGFR calculator available at:http://www.[employer]/multiple_crcl_2012.htm Performed By: #### E RTPF, CONNER, LIP, LIVP, TEGCR ####[address] [place] [address] Anion gap 3 molar conc 5 mmol/L Low 9-17 [facility] Comment on above: Performed By: #### E RTPF, CONNER, LIP, LIVP, TEGCR ####[address] [place] [address] Calcium mass conc 7.4 mg/dL Low 8.6-10.4 [facility] Comment on above: Performed By: #### E RTPF, CONNER, LIP, LIVP, TEGCR ####[address] [address] Chloride molar conc 121 mmol/L High 98-107 [facility] Comment on above: Performed By: #### E RTPF, CONNER, LIP, LIVP, TEGCR ####[facility] [address] [place] [address] CO2 molar conc 20 mmol/L Normal 20-31 [facility] Comment on above: Performed By: #### E RTPF, CONNER, LIP, LIVP, TEGCR ####[facility] [address] [place] [address] Creatinine mass conc 1.94 mg/dL High 0.70-1.20 [facility] Comment on above: Performed By: #### E RTPF, CONNER, LIP, LIVP, TEGCR ####[address] [place] [address] GFR, Amer 43 mL/min Low >60 [facility] Comment on above: Performed By: #### E RTPF, CONNER, LIP, LIVP, TEGCR ####[facility] [place] [address] GFR,non Amer 36 mL/min Low >60 [facility] Comment on above: Performed By: #### E RTPF, CONNER, LIP, LIVP, TEGCR ####[facility] [address] [place] [address] Glucose mass conc 166 mg/dL High 70-99 [facility] Comment on above: Performed By: #### E RTPF, CONNER, LIP, LIVP, TEGCR ####[facility] [place] [address] Potassium molar conc 4.1 mmol/L Normal 3.7-5.3 [facility] Comment on above: Performed By: #### E RTPF, CONNER, LIP, LIVP, TEGCR ####[address] [place] [address] Sodium molar conc 146 mmol/L High 135-144 [facility] Comment on above: Performed By: #### E RTPF, CONNER, LIP, LIVP, TEGCR ####[address] [place] [address] Urea nitrogen mass conc 34 mg/dL High 6-20 [facility] Comment on above: Performed By: #### E RTPF, CONNER, LIP, LIVP, TEGCR ####[address] [place] [address] BUN/CRE Ratio NOT REPORTED Normal -20 [facility] Comment on above: Performed By: #### E RTPF, CONNER, LIP, LIVP, TEGCR ####[address] [address] Staging: NOT REPORTED Normal [facility] Comment on above: Performed By: #### E RTPF, CONNER, LIP, LIVP, TEGCR ####[address] [address] (cont.) Normal [facility] Comment on above: Result Comment: Aver age GFR for 50-59 years old: 93 mL/min/1.73sq mChronic Kidney Disease: <60 mL/min/1.73sq mKidney failure: <15 mL/min/1.73sq meGFR calculated using average adult body mass. Additional eGFR calculator available at:http://www.[employer].com/multiple_crcl_2012.htm Performed By: #### E RTPF, CONNER, LIP, LIVP, TEGCR ####[address] [place] [address] Anion gap 3 molar conc 14 mmol/L Normal -17 [facility] Comment on above: Performed By: #### E RTPF, CONNER, LIP, LIVP, TEGCR ####[facility] [address] [place] [address] Calcium mass conc 7.7 mg/dL Low 8.6-10.4 [facility] Comment on above: Performed By: #### E RTPF, CONNER, LIP, LIVP, TEGCR ####[facility] [place] [address] Chloride molar conc 122 mmol/L High 98-107 [facility] Comment on above: Performed By: #### E RTPF, CONNER, LIP, LIVP, TEGCR ####[facility] [place] [address] CO2 molar conc 20 mmol/L Normal 20-31 [facility] Comment on above: Performed By: #### E RTPF, CONNER, LIP, LIVP, TEGCR ####[facility] [place] [address] Creatinine mass conc 1.72 mg/dL High 0.70-1.20 [facility] Comment on above: Performed By: #### E RTPF, CONNER, LIP, LIVP, TEGCR ####[facility] [place] [address] GFR, Amer 50 mL/min Low >60 [facility] Comment on above: Performed By: #### E RTPF, CONNER, LIP, LIVP, TEGCR ####[facility] [address] [place] [address] GFR,non Amer 41 mL/min Low >60 [facility] Comment on above: Performed By: #### E RTPF, CONNER, LIP, LIVP, TEGCR ####[address] [place] [address] Glucose mass conc 193 mg/dL High 70-99 [facility] Comment on above: Performed By: #### E RTPF, CONNER, LIP, LIVP, TEGCR ####[address] [place] [address] Potassium molar conc 4.5 mmol/L Normal 3.7-5.3 [facility] Comment on above: Performed By: #### E RTPF, CONNER, LIP, LIVP, TEGCR ####[address] [address] Sodium molar conc 156 mmol/L High 135-144 [facility] Comment on above: Performed By: #### E RTPF, CONNER, LIP, LIVP, TEGCR ####[address] [address] Urea nitrogen mass conc 30 mg/dL High 6-20 [facility] Comment on above: Performed By: #### E RTPF, CONNER, LIP, LIVP, TEGCR ####[address] [address] BUN/CRE Ratio NOT REPORTED Normal 9-20 [facility] Comment on above: Performed By: #### E RTPF, CONNER, LIP, LIVP, TEGCR ####[address] [address] Staging: NOT REPORTED Normal [facility] Comment on above: Performed By: #### E RTPF, CONNER, LIP, LIVP, TEGCR ####[address] [place] [address] CBCon 02-03-2018 Erythrocyte distribution width Auto Ratio (RBC) 18.5 % High 11.8-14.4 [facility] Comment on above: Performed By: #### E RTPF, CONNER, LIP, LIVP, TEGCR ####[address] [place] [address] Hematocrit Auto Volume Fraction (Bld) 27.9 % Low 40.7-50.3 [facility] Comment on above: Performed By: #### E RTPF, CONNER, LIP, LIVP, TEGCR ####[address] [address] Hemoglobin mass conc (Bld) 7.6 g/dL Low 13.0-17.0 [facility] Comment on above: Performed By: #### E RTPF, CONNER, LIP, LIVP, TEGCR ####[address] [address] MCH Auto Entitic mass (RBC) 30.3 pg Normal 25.2-33.5 [facility] Comment on above: Performed By: #### E RTPF, CONNER, LIP, LIVP, TEGCR ####[address] [address] MCHC Auto mass conc (RBC) 27.2 g/dL Low 28.4-34.8 [facility] Comment on above: Performed By: #### E RTPF, CONNER, LIP, LIVP, TEGCR ####[address] [address] MCV Auto Entitic volume (RBC) 111.2 fL High 82.6-102.9 [facility] Comment on above: Performed By: #### E RTPF, CONNER, LIP, LIVP, TEGCR ####[address] [address] NRBC Automated 1.0 per 100 WBC High 0.0 [facility] Comment on above: Performed By: #### E RTPF, CONNER, LIP, LIVP, TEGCR ####[address] [address] Platelet mean volume Auto Entitic volume (Bld) 11.3 fL Normal 8.1-13.5 [facility] Comment on above: Performed By: #### E RTPF, CONNER, LIP, LIVP, TEGCR ####[address] [address] Platelets Auto #/vol (Bld) 533 10*3/uL High 138-453 [facility] Comment on above: Performed By: #### E RTPF, CONNER, LIP, LIVP, TEGCR ####[address] [address] RBC Auto #/vol (Bld) 2.51 10*6/uL Low 4.21-5.77 [facility] Comment on above: Performed By: #### E RTPF, CONNER, LIP, LIVP, TEGCR ####[address] [address] WBC Auto #/vol (Bld) 33.5 10*3/uL Critically high 3.5-11.3 [facility] Comment on above: Performed By: #### E RTPF, CONNER, LIP, LIVP, TEGCR ####[address] [address] Erythrocyte distribution width Auto Ratio (RBC) 18.2 % High 11.8-14.4 [facility] Comment on above: Performed By: #### E RTPF, CONNER, LIP, LIVP, TEGCR ####[address] [address] Hematocrit Auto Volume Fraction (Bld) 29.0 % Low 40.7-50.3 [facility] Comment on above: Performed By: #### E RTPF, CONNER, LIP, LIVP, TEGCR ####[address] [address] Hemoglobin mass conc (Bld) 8.1 g/dL Low 13.0-17.0 [facility] Comment on above: Performed By: #### E RTPF, CONNER, LIP, LIVP, TEGCR ####[address] [address] MCH Auto Entitic mass (RBC) 30.5 pg Normal 25.2-33.5 [facility] Comment on above: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 k/uL Normal 0.0-0.2 [facility] Comment on above: Performed By: #### E RTPF, CONNER, LIP, LIVP, TEGCR ####[place] [address] Abs.Imm.Granulocyte 0.00 k/uL Normal 0.00-0.30 [facility] Comment on above: Performed By: #### E RTPF, CONNER, LIP, LIVP, TEGCR ####[place] [address] Abs.Neutrophil (Seg) 21.68 k/uL High 1.8-7.7 [facility] Comment on above: Performed By: #### E RTPF, CONNER, LIP, LIVP, TEGCR ####[place] [address] Basophils/100 WBC Auto (Bld) 0 % Normal 0-2 [facility] Comment on above: Performed By: #### E RTPF, CONNER, LIP, LIVP, TEGCR ####[place] [address] Eosinophils Auto #/vol (Bld) 0.25 10*3/uL Normal 0.0-0.4 [facility] Comment on above: Performed By: #### E RTPF, CONNER, LIP, LIVP, TEGCR ####[address] [address] Eosinophils/100 WBC Auto (Bld) 1 % Normal 1-4 [facility] Comment on above: Performed By: #### E RTPF, CONNER, LIP, LIVP, TEGCR ####[address] [address] Immature granulocytes #/vol (Bld) 0 % Normal 0 [facility] Comment on above: Performed By: #### E RTPF, CONNER, LIP, LIVP, TEGCR ####[address] [address] Lymphocytes Auto #/vol (Bld) 2.77 10*3/uL Normal 1.0-4.8 [facility] Comment on above: Performed By: #### E RTPF, CONNER, LIP, LIVP, TEGCR ####[address] [address] Lymphocytes/100 WBC Auto (Bld) 11 % Low 24-44 [facility] Comment on above: Performed By: #### E RTPF, CONNER, LIP, LIVP, TEGCR ####[address] [address] Monocytes Auto #/vol (Bld) 0.50 10*3/uL Normal 0.1-0.8 [facility] Comment on above: Performed By: #### E RTPF, CONNER, LIP, LIVP, TEGCR ####[address] [address] Monocytes/100 WBC Auto (Bld) 2 % Normal 1-7 [facility] Comment on above: Performed By: #### E RTPF, CONNER, LIP, LIVP, TEGCR ####[address] [address] Morphology Interp Eduard (Bld) MACROCYTOSIS PRESENT Normal [facility] Comment on above: Result Comment: ANIS OCYTOSIS PRESENT Performed By: #### E RTPF, CONNER, LIP, LIVP, TEGCR ####[facility] [place] [address] Neutrophil (Seg) 86 % High 36-66 [facility] Comment on above: Performed By: #### E RTPF, CONNER, LIP, LIVP, TEGCR ####[address] [place] [address] Nucleated RBC/100 WBC Ratio (Bld) 1 per 100 WBC High 0 [facility] Comment on above: Performed By: #### E RTPF, CONNER, LIP, LIVP, TEGCR ####[address] [place] [address] Erythrocyte distribution width Auto Ratio (RBC) 17.6 % High 11.8-14.4 [facility] Comment on above: Performed By: #### E RTPF, CONNER, LIP, LIVP, TEGCR ####[address] [place] [address] Hematocrit Auto Volume Fraction (Bld) 30.9 % Low 40.7-50.3 [facility] Comment on above: Performed By: #### E RTPF, CONNER, LIP, LIVP, TEGCR ####[address] [place] [address] Hemoglobin mass conc (Bld) 8.8 g/dL Low 13.0-17.0 [facility] Comment on above: Performed By: #### E RTPF, CONNER, LIP, LIVP, TEGCR ####[address] [place] [address] MCH Auto Entitic mass (RBC) 29.9 pg Normal 25.2-33.5 [facility] Comment on above: Performed By: #### E RTPF, CONNER, LIP, LIVP, TEGCR ####[address] [place] [address] MCHC Auto mass conc (RBC) 28.5 g/dL Normal 28.4-34.8 [facility] Comment on above: Performed By: #### E RTPF, CONNER, LIP, LIVP, TEGCR ####[address] [address] MCV Auto Entitic volume (RBC) 105.1 fL High 82.6-102.9 [facility] Comment on above: Performed By: #### E RTPF, CONNER, LIP, LIVP, TEGCR ####[address] [address] NRBC Automated 0.5 per 100 WBC High 0.0 [facility] Comment on above: Performed By: #### E RTPF, CONENR, LIP, LIVP, TEGCR ####[address] [address] Platelet mean volume Auto Entitic volume (Bld) 10.6 fL Normal 8.1-13.5 [facility] Comment on above: Performed By: #### E RTPF, CONNER, LIP, LIVP, TEGCR ####[address] [address] Platelets Auto #/vol (Bld) 852 10*3/uL High 138-453 [facility] Comment on above: Performed By: #### E RTPF, CONNER, LIP, LIVP, TEGCR ####[address] [address] RBC Auto #/vol (Bld) 2.94 10*6/uL Low 4.21-5.77 [facility] Comment on above: Performed By: #### E RTPF, CONNER, LIP, LIVP, TEGCR ####[address] [address] WBC Auto #/vol (Bld) 25.2 10*3/uL High 3.5-11.3 [facility] Comment on above: Performed By: #### E RTPF, CONNER, LIP, LIVP, TEGCR ####[address] [address] Auto Diff Performed NOT REPORTED Normal [facility] Comment on above: Performed By: #### E RTPF, CONNER, LIP, LIVP, TEGCR ####[address] [address] Platelets Auto #/vol (Bld) NOT REPORTED Normal [facility] Comment on above: Performed By: #### E RTPF, CONNER, LIP, LIVP, TEGCR ####[address] [address] RBC morphology finding Nom (Bld) NOT REPORTED Normal [facility] Comment on above: Performed By: #### E RTPF, CONNER, LIP, LIVP, TEGCR ####[address] [address] WBC Morphology NOT REPORTED Normal [facility] Comment on above: Performed By: #### E RTPF, CONNER, LIP, LIVP, TEGCR ####[address] [address] Magnesiumon 01-31-2018 Magnesium mass conc 2.7 mg/dL High 1.6-2.6 [facility] Comment on above: Performed By: #### E RTPF, CONNER, LIP, LIVP, TEGCR ####[facility] [address] [place] [address] Phosphorus, Inorg.on 018 Phosphorus, Inorg. 2.7 mg/dL Normal 2.5-4.5 [facility] Comment on above: Performed By: #### E RTPF, CONNER, LIP, LIVP, TEGCR ####[address] [address] Urinalysis w/ Microon 2017 ----- Normal [facility] Comment on above: Performed By: #### E RTPF, CONNER, LIP, LIVP, TEGCR ####[address] [address] Acetoacetic Acid,Ur Negative Normal NEG [facility] Comment on above: Performed By: #### E RTPF, CONNER, LIP, LIVP, TEGCR ####[address] [address] Bilirubin, SemiQt,Ur Negative Normal NEG [facility] Comment on above: Performed By: #### E RTPF, CONNER, LIP, LIVP, TEGCR ####[address] [address] Color YELLOW Normal YEL [facility] Comment on above: Performed By: #### E RTPF, CONNER, LIP, LIVP, TEGCR ####[address] [address] Epithelial cells 0 TO 2 Normal 0-5 [facility] Comment on above: Performed By: #### E RTPF, OCNNER, LIP, LIVP, TEGCR ####[address] [address] Glucose,Semi-qnt,Ur Negative Normal NEG [facility] Comment on above: Performed By: #### E RTPF, CONNER, LIP, LIVP, TEGCR ####[address] [address] Hemoglobin, Ur MODERATE Abnormal NEG [facility] Comment on above: Performed By: #### E RTPF, CONNER, LIP, LIVP, TEGCR ####[address] [address] Leuckocyte Esterase Negative Normal NEG [facility] Comment on above: Performed By: #### E RTPF, CONNER, LIP, LIVP, TEGCR ####[address] [address] Nitrite,Ur Negative Normal NEG [facility] Comment on above: Performed By: #### E RTPF, CONNER, LIP, LIVP, TEGCR ####[address] [address] PH,Ur 6.5 Normal 5.0-8.0 [facility] Comment on above: Performed By: #### E RTPF, CONNER, LIP, LIVP, TEGCR ####[address] [address] Protein mass conc 1+ Abnormal NEG [facility] Comment on above: Performed By: #### E RTPF, CONNER, LIP, LIVP, TEGCR ####[address] [address] RBC Test strip #/vol (U) 5 TO 10 Normal 0-4 [facility] Comment on above: Result Comment: Refe rence range defined for non-centrifuged specimen. Performed By: #### E RTPF, CONNER, LIP, LIVP, TEGCR ####[address] [address] Spec. [place],Ur 1.018 Normal 1.005-1.03 0 [facility] Comment on above: Performed By: #### E RTPF, CONNER, LIP, LIVP, TEGCR ####[address] [address] Turbidity CLEAR Normal CLEAR [facility] Comment on above: Performed By: #### E RTPF, CONNER, LIP, LIVP, TEGCR ####[address] [address] Urine WBC's 0 TO 2 Normal 0-5 [facility] Comment on above: Performed By: #### E RTPF, CONNER, LIP, LIVP, TEGCR ####[address] [address] Urobilinogen,Ur Normal Normal NORM [facility] Comment on above: Performed By: #### E RTPF, CONNER, LIP, LIVP, TEGCR ####[address] [address] Amorphous Sediment NOT REPORTED Normal NONE [facility] Comment on above: Performed By: #### E RTPF, CONNER, LIP, LIVP, TEGCR ####[address] [address] Bacteria NOT REPORTED Normal NONE [facility] Comment on above: Performed By: #### E RTPF, CONNER, LIP, LIVP, TEGCR ####[address] [address] Casts NOT REPORTED Normal 0-8 [facility] Comment on above: Performed By: #### E RTPF, CONNER, LIP, LIVP, TEGCR ####[address] [address] Crystals NOT REPORTED Normal NONE [facility] Comment on above: Performed By: #### E RTPF, CONNER, LIP, LIVP, TEGCR ####[address] [address] Epithelial, Renal NOT REPORTED Normal 0 [facility] Comment on above: Performed By: #### E RTPF, CONNER, LIP, LIVP, TEGCR ####[address] [address] Mucus Strands NOT REPORTED Normal NONE [facility] Comment on above: Performed By: #### E RTPF, CONNER, LIP, LIVP, TEGCR ####[address] [address] Other Observations NOT REPORTED Normal NREQ [facility] Comment on above: Performed By: #### E RTPF, CONNER, LIP, LIVP, TEGCR ####[address] [address] Trichomonas NOT REPORTED Normal NONE [facility] Comment on above: Performed By: #### E RTPF, CONNER, LIP, LIVP, TEGCR ####[address] [address] Yeast NOT REPORTED Normal NONE [facility] Comment on above: Performed By: #### E RTPF, CONNER, LIP, LIVP, TEGCR ####[address] [address] CBC with Diffon 01-30-2018 Abs. Basophil 0.00 k/uL Normal 0.0-0.2 [facility] Comment on above: Performed By: #### E RTPF, CONNER, LIP, LIVP, TEGCR ####[address] [address] Abs.Imm.Granulocyte 0.22 k/uL Normal 0.00-0.30 [facility] Comment on above: Performed By: #### E RTPF, CONNER, LIP, LIVP, TEGCR ####[address] [address] Abs.Neutrophil (Seg) 17.57 k/uL High 1.8-7.7 [facility] Comment on above: Performed By: #### E RTPF, CONNER, LIP, LIVP, TEGCR ####[address] [address] Basophils/100 WBC Auto (Bld) 0 % Normal 0-2 [facility] Comment on above: Performed By: #### E RTPF, CONNER, LIP, LIVP, TEGCR ####[address] [address] Eosinophils Auto #/vol (Bld) 0.22 10*3/uL Normal 0.0-0.4 [facility] Comment on above: Performed By: #### E RTPF, CONNER, LIP, LIVP, TEGCR ####[address] [address] Eosinophils/100 WBC Auto (Bld) 1 % Normal 1-4 [facility] Comment on above: Performed By: #### E RTPF, CONNER, LIP, LIVP, TEGCR ####[address] [address] Immature granulocytes #/vol (Bld) 1 % High 0 [facility] Comment on above: Performed By: #### E RTPF, CONNER, LIP, LIVP, TEGCR ####[address] [address] Lymphocytes Auto #/vol (Bld) 2.17 10*3/uL Normal 1.0-4.8 [facility] Comment on above: Performed By: #### E RTPF, CONNER, LIP, LIVP, TEGCR ####[address] [address] Lymphocytes/100 WBC Auto (Bld) 10 % Low 24-44 [facility] Comment on above: Performed By: #### E RTPF, CONNER, LIP, LIVP, TEGCR ####[address] [address] Monocytes Auto #/vol (Bld) 1.52 10*3/uL High 0.1-0.8 [facility] Comment on above: Performed By: #### E RTPF, CONNER, LIP, LIVP, TEGCR ####[address] [place] [address] Monocytes/100 WBC Auto (Bld) 7 % Normal 1-7 [facility] Comment on above: Performed By: #### E RTPF, CONNER, LIP, LIVP, TEGCR ####[address] [address] Morphology Interp Eduard (Bld) ANISOCYTOSIS PRESENT Normal [facility] Comment on above: Result Comment: INCR EASED BANDS PRESENT Performed By: #### E RTPF, CONNER, LIP, LIVP, TEGCR ####[address] [address] Neutrophil (Seg) 81 % High 36-66 [facility] Comment on above: Performed By: #### E RTPF, CONNER, LIP, LIVP, TEGCR ####[address] [address] Erythrocyte distribution width Auto Ratio (RBC) 17.1 % High 11.8-14.4 [facility] Comment on above: Performed By: #### E RTPF, CONNER, LIP, LIVP, TEGCR ####[address] [address] Hematocrit Auto Volume Fraction (Bld) 29.8 % Low 40.7-50.3 [facility] Comment on above: Performed By: #### E RTPF, CONNER, LIP, LIVP, TEGCR ####[address] [address] Hemoglobin mass conc (Bld) 8.9 g/dL Low 13.0-17.0 [facility] Comment on above: Performed By: #### E RTPF, CONNER, LIP, LIVP, TEGCR ####[address] [address] MCH Auto Entitic mass (RBC) 29.9 pg Normal 25.2-33.5 [facility] Comment on above: Performed By: #### E RTPF, CONNER, LIP, LIVP, TEGCR ####[address] [address] MCHC Auto mass conc (RBC) 29.9 g/dL Normal 28.4-34.8 [facility] Comment on above: Performed By: #### E RTPF, CONNER, LIP, LIVP, TEGCR ####[address] [address] MCV Auto Entitic volume (RBC) 100.0 fL Normal 82.6-102.9 [facility] Comment on above: Performed By: #### E RTPF, CONNER, LIP, LIVP, TEGCR ####[address] [address] NRBC Automated 0.1 per 100 WBC High 0.0 [facility] Comment on above: Performed By: #### E RTPF, CONNER, LIP, LIVP, TEGCR ####[address] [address] Platelet mean volume Auto Entitic volume (Bld) 10.5 fL Normal 8.1-13.5 [facility] Comment on above: Performed By: #### E RTPF, CONNER, LIP, LIVP, TEGCR ####[address] [address] Platelets Auto #/vol (Bld) 850 10*3/uL High 138-453 [facility] Comment on above: Performed By: #### E RTPF, CONNER, LIP, LIVP, TEGCR ####[address] [address] RBC Auto #/vol (Bld) 2.98 10*6/uL Low 4.21-5.77 [facility] Comment on above: Performed By: #### E RTPF, CONNER, LIP, LIVP, TEGCR ####[address] [address] WBC Auto #/vol (Bld) 21.7 10*3/uL High 3.5-11.3 [facility] Comment on above: Performed By: #### E RTPF, CONNER, LIP, LIVP, TEGCR ####[address] [address] Auto Diff Performed NOT REPORTED Normal [facility] Comment on above: Performed By: #### E RTPF, CONNER, LIP, LIVP, TEGCR ####[address] [address] Platelets Auto #/vol (Bld) NOT REPORTED Normal [facility] Comment on above: Performed By: #### E RTPF, CONNER, LIP, LIVP, TEGCR ####[address] [address] RBC morphology finding Nom (Bld) NOT REPORTED Normal [facility] Comment on above: Performed By: #### E RTPF, CONNER, LIP, LIVP, TEGCR ####[address] [address] WBC Morphology NOT REPORTED Normal [facility] Comment on above: Performed By: #### E RTPF, CONNER, LIP, LIVP, TEGCR ####[address] [address] Comp Metabolic Profon 2017 (cont.) Normal [facility] Comment on above: Result Comment: Aver age GFR for 50-59 years old: 93 mL/min/1.73sq mChronic Kidney Disease: <60 mL/min/1.73sq mKidney failure: <15 mL/min/1.73sq meGFR calculated using average adult body mass. Additional eGFR calculator available at:http://www.[employer]/multiple_crcl_2012.htm Performed By: #### E RTPF, CONNER, LIP, LIVP, TEGCR ####[facility] [place] [address] Albumin mass conc 2.6 g/dL Low 3.5-5.2 [facility] Comment on above: Performed By: #### E RTPF, CONNER, LIP, LIVP, TEGCR ####[address] [place] [address] Albumin/Globulin mass ratio 0.6 {ratio} Low 1.0-2.5 [facility] Comment on above: Performed By: #### E RTPF, CONNER, LIP, LIVP, TEGCR ####[address] [place] [address] Alkaline Phos 76 U/L Normal 40-129 [facility] Comment on above: Performed By: #### E RTPF, CONNER, LIP, LIVP, TEGCR ####[facility] [place] [address] ALT enzyme act/vol 21 U/L Normal 5-41 [facility] Comment on above: Performed By: #### E RTPF, CONNER, LIP, LIVP, TEGCR ####[facility] [place] [address] Anion gap 3 molar conc 10 mmol/L Normal 9-17 [facility] Comment on above: Performed By: #### E RTPF, CONNER, LIP, LIVP, TEGCR ####[facility] [place] [address] AST enzyme act/vol 51 U/L High <40 [facility] Comment on above: Performed By: #### E RTPF, CONNER, LIP, LIVP, TEGCR ####[facility] [address] [place] [address] Bilirubin Ql (U) 0.98 mg/dL Normal 0.3-1.2 [facility] Comment on above: Performed By: #### E RTPF, CONNER, LIP, LIVP, TEGCR ####[address] [place] [address] Calcium mass conc 8.1 mg/dL Low 8.6-10.4 [facility] Comment on above: Performed By: #### E RTPF, CONNER, LIP, LIVP, TEGCR ####[address] [place] [address] Chloride molar conc 114 mmol/L High 98-107 [facility] Comment on above: Performed By: #### E RTPF, CONNER, LIP, LIVP, TEGCR ####[address] [address] CO2 molar conc 27 mmol/L Normal 20-31 [facility] Comment on above: Performed By: #### E RTPF, CONNER, LIP, LIVP, TEGCR ####[facility] [place] [address] Creatinine mass conc 1.47 mg/dL High 0.70-1.20 [facility] Comment on above: Performed By: #### E RTPF, CONNER, LIP, LIVP, TEGCR ####[facility] [address] [place] [address] GFR, Amer 60 mL/min Low >60 [facility] Comment on above: Performed By: #### E RTPF, CONNER, LIP, LIVP, TEGCR ####[facility] [place] [address] GFR,non Amer 49 mL/min Low >60 [facility] Comment on above: Performed By: #### E RTPF, CONNER, LIP, LIVP, TEGCR ####[address] [address] Glucose mass conc 153 mg/dL High 70-99 [facility] Comment on above: Performed By: #### E RTPF, CONNER, LIP, LIVP, TEGCR ####[address] [address] Potassium molar conc 3.2 mmol/L Low 3.7-5.3 [facility] Comment on above: Performed By: #### E RTPF, CONNER, LIP, LIVP, TEGCR ####[address] [address] Protein mass conc 6.7 g/dL Normal 6.4-8.3 [facility] Comment on above: Performed By: #### E RTPF, CONNER, LIP, LIVP, TEGCR ####[facility] [place] [address] Sodium molar conc 151 mmol/L High 135-144 [facility] Comment on above: Performed By: #### E RTPF, CONNER, LIP, LIVP, TEGCR ####[address] [address] Urea nitrogen mass conc 23 mg/dL High 6-20 [facility] Comment on above: Performed By: #### E RTPF, CNONER, LIP, LIVP, TEGCR ####[address] [place] [address] BUN/CRE Ratio NOT REPORTED Normal 9-20 [facility] Comment on above: Performed By: #### E RTPF, CONNER, LIP, LIVP, TEGCR ####[address] [address] Staging: NOT REPORTED Normal [facility] Comment on above: Performed By: #### E RTPF, CONNER, LIP, LIVP, TEGCR ####[facility] [address] [place], [place] 1053[address] Magnesiumon 01-30-2018 Magnesium mass conc 3.0 mg/dL High 1.6-2.6 [facility] Comment on above: Performed By: #### E RTPF, CONNER, LIP, LIVP, TEGCR ####[facility] [address] [place] [address] Phosphorus, Inorg.on 018 Phosphorus, Inorg. 1.9 mg/dL Low 2.5-4.5 [facility] Comment on above: Performed By: #### E RTPF, CONNER, LIP, LIVP, TEGCR ####[address] [place], [place] [id number] XR CHEST PORTABLEon 01-31-20 18 XR CHEST PORTABLE EXAMINATION:SINGLE X RAY VIEW OF THE CHEST01/30/2018 8:26 amCOMPARISON:01/29/2018HISTOR Y:ORDERING SYSTEM PROVIDED HISTORY: tachypneaTECHNOLOGIST PROVIDED HISTORY:tachypneaFINDINGS:The heart and mediastinal structures are stable. NG tube and right upperextremity PICC line are in place. Bibasilar atelectasis is present withsmall pleural effusions.IMPRESSION: Small pleural effusions with bibasilar atelectasisInterpreted by:NADEGE Rosalesigned by:Lauro Hood MD01/30/18inal result Normal [facility] Ammoniaon 01-29-2018 Ammonia mass conc (P) 33 umol/L Normal 16-60 [facility] Comment on above: Performed By: #### E RTPF, CONNER, LIP, LIVP, TEGCR ####[facility] [address] [place], [place] [id number] Basic Metabolic Profon 01-29 (cont.) Normal [facility] Comment on above: Result Comment: Aver age GFR for 50-59 years old: 93 mL/min/1.73sq mChronic Kidney Disease: <60 mL/min/1.73sq mKidney failure: <15 mL/min/1.73sq meGFR calculated using average adult body mass. Additional eGFR calculator available at:http://www.[employer]/multiple_crcl_2012.htm Performed By: #### E RTPF, CONNER, LIP, LIVP, TEGCR ####[facility] [address] [place] [address] Anion gap 3 molar conc 13 mmol/L Normal 9-17 [facility] Comment on above: Performed By: #### E RTPF, CONNER, LIP, LIVP, TEGCR ####[address] [place] [address] Calcium mass conc 7.6 mg/dL Low 8.6-10.4 [facility] Comment on above: Performed By: #### E RTPF, CONNER, LIP, LIVP, TEGCR ####[address] [place] [address] Chloride molar conc 110 mmol/L High 98-107 [facility] Comment on above: Performed By: #### E RTPF, CONNER, LIP, LIVP, TEGCR ####[facility] [address] [place] [address] CO2 molar conc 28 mmol/L Normal 20-31 [facility] Comment on above: Performed By: #### E RTPF, CONNER, LIP, LIVP, TEGCR ####[facility] [address] [place] [address] Creatinine mass conc 1.42 mg/dL High 0.70-1.20 [facility] Comment on above: Performed By: #### E RTPF, CONNER, LIP, LIVP, TEGCR ####[facility] [address] [place] [address] GFR, Amer >60 Normal >60 [facility] Comment on above: Performed By: #### E RTPF, CONNER, LIP, LIVP, TEGCR ####[facility] [place] [address] GFR,non Amer 51 mL/min Low >60 [facility] Comment on above: Performed By: #### E RTPF, CONNER, LIP, LIVP, TEGCR ####[facility] [place] [address] Glucose mass conc 131 mg/dL High 70-99 [facility] Comment on above: Performed By: #### E RTPF, CONNER, LIP, LIVP, TEGCR ####[facility] [place] [address] Potassium molar conc 3.9 mmol/L Normal 3.7-5.3 [facility] Comment on above: Result Comment: SPEC IMEN SLIGHTLY HEMOLYZED, RESULTS MAY BE ADVERSELY AFFECTED. Performed By: #### E RTPF, CONNER, LIP, LIVP, TEGCR ####[facility] [place] [address] Sodium molar conc 151 mmol/L High 135-144 [facility] Comment on above: Performed By: #### E RTPF, CONNER, LIP, LIVP, TEGCR ####[facility] [address] [place] [address] Urea nitrogen mass conc 32 mg/dL High 6-20 [facility] Comment on above: Performed By: #### E RTPF, CONNER, LIP, LIVP, TEGCR ####[facility] [place] [address] BUN/CRE Ratio NOT REPORTED Normal 9-20 [facility] Comment on above: Performed By: #### E RTPF, CONNER, LIP, LIVP, TEGCR ####[address] [address] Staging: NOT REPORTED Normal [facility] Comment on above: Performed By: #### E RTPF, CONNER, LIP, LIVP, TEGCR ####[address] [address] Brain Natri. Peptideon 01-29 Natriuretic peptide B mass conc (Bld) Normal [facility] Comment on above: Result Comment: Pro- BNP Reference Range:Rule Out: <300Grey Zone: Age <50 300-450 Age 50-75 300-900 Age >75 300-1800Usually represents mild to moderate HF but other cardiopulmonary causes cannot be ruled out.Rule In: Age <50 >450 Age 50-75 >900 Age >75 >1800 Performed By: #### E RTPF, CONNER, LIP, LIVP, TEGCR ####[address] [address] Natriuretic peptide B mass conc (Bld) 1400 pg/mL High <300 [facility] Comment on above: Result Comment: Pro- BNP results cannot be compared to BNP results. Performed By: #### E RTPF, CONNER, LIP, LIVP, TEGCR ####[address] [address] CBC with Diffon 01-29-2018 Abs. Basophil 0.00 k/uL Normal 0.0-0.2 [facility] Comment on above: Performed By: #### E RTPF, CONNER, LIP, LIVP, TEGCR ####[address] [address] Abs.Imm.Granulocyte 0.00 k/uL Normal 0.00-0.30 [facility] Comment on above: Performed By: #### E RTPF, CONNER, LIP, LIVP, TEGCR ####[address] [place] [address] Abs.Neutrophil (Seg) 20.91 k/uL High 1.8-7.7 [facility] Comment on above: Performed By: #### E RTPF, CONNER, LIP, LIVP, TEGCR ####[address] [address] Basophils/100 WBC Auto (Bld) 0 % Normal 0-2 [facility] Comment on above: Performed By: #### E RTPF, CONNER, LIP, LIVP, TEGCR ####[address] [address] Eosinophils Auto #/vol (Bld) 0.25 10*3/uL Normal 0.0-0.4 [facility] Comment on above: Performed By: #### E RTPF, CONNER, LIP, LIVP, TEGCR ####[address] [address] Eosinophils/100 WBC Auto (Bld) 1 % Normal 1-4 [facility] Comment on above: Performed By: #### E RTPF, CONNER, LIP, LIVP, TEGCR ####[address] [address] Immature granulocytes #/vol (Bld) 0 % Normal 0 [facility] Comment on above: Performed By: #### E RTPF, CONNER, LIP, LIVP, TEGCR ####[address] [address] Lymphocytes Auto #/vol (Bld) 2.21 10*3/uL Normal 1.0-4.8 [facility] Comment on above: Performed By: #### E RTPF, CONNER, LIP, LIVP, TEGCR ####[address] [address] Lymphocytes/100 WBC Auto (Bld) 9 % Low 24-44 [facility] Comment on above: Performed By: #### E RTPF, CONNER, LIP, LIVP, TEGCR ####[address] [address] Monocytes Auto #/vol (Bld) 1.23 10*3/uL High 0.1-0.8 [facility] Comment on above: Performed By: #### E RTPF, CONNER, LIP, LIVP, TEGCR ####[address] [address] Monocytes/100 WBC Auto (Bld) 5 % Normal 1-7 [facility] Comment on above: Performed By: #### E RTPF, CONNER, LIP, LIVP, TEGCR ####[address] [address] Morphology Interp Eduard (Bld) ANISOCYTOSIS PRESENT Normal [facility] Comment on above: Result Comment: TOXI C GRANULATION PRESENT Performed By: #### E RTPF, CONNER, LIP, LIVP, TEGCR ####[address] [address] Neutrophil (Seg) 85 % High 36-66 [facility] Comment on above: Performed By: #### E RTPF, CONNER, LIP, LIVP, TEGCR ####[address] [address] Nucleated RBC/100 WBC Ratio (Bld) 1 per 100 WBC High 0 [facility] Comment on above: Performed By: #### E RTPF, CONNER, LIP, LIVP, TEGCR ####[address] [address] Erythrocyte distribution width Auto Ratio (RBC) 17.1 % High 11.8-14.4 [facility] Comment on above: Performed By: #### E RTPF, CONNER, LIP, LIVP, TEGCR ####[address] [address] Hematocrit Auto Volume Fraction (Bld) 27.6 % Low 40.7-50.3 [facility] Comment on above: Performed By: #### E RTPF, CONNER, LIP, LIVP, TEGCR ####[address] [address] Hemoglobin mass conc (Bld) 8.4 g/dL Low 13.0-17.0 [facility] Comment on above: Performed By: #### E RTPF, CONNER, LIP, LIVP, TEGCR ####[address] [address] MCH Auto Entitic mass (RBC) 30.3 pg Normal 25.2-33.5 [facility] Comment on above: Performed By: #### E RTPF, CONNER, LIP, LIVP, TEGCR ####[address] [address] MCHC Auto mass conc (RBC) 30.4 g/dL Normal 28.4-34.8 [facility] Comment on above: Performed By: #### E RTPF, CONNER, LIP, LIVP, TEGCR ####[address] [address] MCV Auto Entitic volume (RBC) 99.6 fL Normal 82.6-102.9 [facility] Comment on above: Performed By: #### E RTPF, CONNER, LIP, LIVP, TEGCR ####[address] [address] NRBC Automated 0.0 per 100 WBC Normal 0.0 [facility] Comment on above: Performed By: #### E RTPF, CONNER, LIP, LIVP, TEGCR ####[address] [address] Platelet mean volume Auto Entitic volume (Bld) 10.9 fL Normal 8.1-13.5 [facility] Comment on above: Performed By: #### E RTPF, CONNER, LIP, LIVP, TEGCR ####[address] [address] Platelets Auto #/vol (Bld) 738 10*3/uL High 138-453 [facility] Comment on above: Performed By: #### E RTPF, CONNER, LIP, LIVP, TEGCR ####[address] [address] RBC Auto #/vol (Bld) 2.77 10*6/uL Low 4.21-5.77 [facility] Comment on above: Performed By: #### E RTPF, CONNER, LIP, LIVP, TEGCR ####[address] [address] WBC Auto #/vol (Bld) 24.6 10*3/uL High 3.5-11.3 [facility] Comment on above: Performed By: #### E RTPF, CONNER, LIP, LIVP, TEGCR ####[address] [address] Auto Diff Performed NOT REPORTED Normal [facility] Comment on above: Performed By: #### E RTPF, CONNER, LIP, LIVP, TEGCR ####[address] [id number] Platelets Auto #/vol (Bld) NOT REPORTED Normal [facility] Comment on above: Performed By: #### E RTPF, CONNER, LIP, LIVP, TEGCR ####[address] [address] RBC morphology finding Nom (Bld) NOT REPORTED Normal [facility] Comment on above: Performed By: #### E RTPF, CONNER, LIP, LIVP, TEGCR ####[facility] [address] [place] [address] WBC Morphology NOT REPORTED Normal [facility] Comment on above: Performed By: #### E RTPF, CONNER, LIP, LIVP, TEGCR ####[facility] [address] [place] [address] CT ABDOMEN PELVIS W IV CONTR Ольга 01-29-2018 CT ABDOMEN PELVIS W IV CONTRAST EXAMINATION:CT OF THE ABDOMEN AND PELVIS WITH CONTRAST 01/29/2018 5:37 pmTECHNIQUE:CT of the abdomen and pelvis was performed with the administration ofintravenous contrast. Multiplanar reformatted images are provided for review.Dose modulation, iterative reconstruction, and/or weight based adjustment ofthe mA/kV was utilized to reduce the radiation dose to as low as reasonablyachievable.COMPARIS ON:January 27, 2018HISTORY:ORDERING SYSTEM PROVIDED HISTORY: ABDOMINAL DISTENSIONTECHNOLOGIST PROVIDED HISTORY:FINDINGS:Evaluation is limited by motion.Lower Chest: Small bilateral pleural effusions. Associated bibasilar lungopacities likely represent atelectasis. No pericardial effusion. Contrastwithin the distal esophagus likely represents reflux.Organs: No liver lesion. Prior cholecystectomy. No pancreatic lesion.Splenectomy. No adrenal lesion. No hydronephrosis. Left renal cyst.GI/Bowel: Contrast is seen refluxing within the distal esophagus. Enterictube terminates within the stomach. Multiple dilated loops of small bowelare seen. Anastomosis is seen within the right mid abdomen. Nonspecificthickened loop of jejunum is seen within the left upper quadrant. Sigmoidcolon and rectum appear thickened even when accounting for incompletedistension.Pelvis: No bladder calculus. Small amount of free fluid is seen within thepelvis.Peritoneum/Retroper itoneum: No definite adenopathy. No aortic aneurysm.Atherosclerotic calcification of the abdominal aorta and iliac arteries.Bones/Soft Tissues: Midline skin leia are seen from recent surgery.Degenerative changes within the lumbar spine.IMPRESSION: Diffusely dilated fluid-filled loops of bowel likely indicate a postoperativeileus. Obstruction is felt to be less likely but not excluded.Nonspecific thickening of a loop of jejunum may be reactive.Diffuse thickening of the sigmoid colon and rectum may be on an infectious orinflammatory basis.Contrast within the distal esophagus likely indicates reflux.Interpreted by:NADEGE Escalanteigned by:Cassie Torres MD01/29/18Final result Normal [facility] Triglycerideson 01-29-2018 Triglyceride mass conc 147 mg/dL Normal <150 [facility] Comment on above: Result Comment: Trig lyceride Guidelines: <150 Desirable 150- 199 Borderline 200-499 High >499 Very high Based on AHA Guidelines for fasting triglyceride, February 2012. Performed By: #### E RTPF, CONNER, LIP, LIVP, TEGCR ####[employer] [address] [place], [place] [id number] Triglyceride mass conc 149 mg/dL Normal <150 [facility] Comment on above: Result Comment: Trig lyceride Guidelines: <150 Desirable 150- 199 Borderline 200-499 High >499 Very high Based on AHA Guidelines for fasting triglyceride, February 2012. Performed By: #### E RTPF, CONNER, LIP, LIVP, TEGCR ####[employer] [address] [place], [place] [id number] XR CHEST PORTABLEon 01-30-20 18 XR CHEST PORTABLE EXAMINATION:SINGLE X RAY VIEW OF THE CHEST01/29/2018 7:12 amCOMPARISON:01/27/2018HISTOR Y:ORDERING SYSTEM PROVIDED HISTORY: comparisonTECHNOLOGIST PROVIDED HISTORY:comparisonOn going examination. History of vomiting, abdominal distention, andpossible small bowel ileus. Subsequent exam.FINDINGS:A nasogastric tube is coiled within the proximal to mid stomach. A rightupper extremity PICC line distal tip is at the cavoatrial junction.Small bilateral pleural effusions have decreased. Overlying atelectasis isalso improved. There is no pneumothorax. The cardiomediastinal silhouetteis stable. There is emphysema. No acute osseous abnormality is seen.IMPRESSION: 1. Decrease in size of small bilateral pleural effusions and improvingbibasilar atelectasis.2. Emphysema.Interpreted by:NADEGE Braunigned by:Cassie Albarado MD01/29/18Final result Normal [facility] Basic Metabolic Profon 01-28 (cont.) Normal [facility] Comment on above: Result Comment: Aver age GFR for 50-59 years old: 93 mL/min/1.73sq mChronic Kidney Disease: <60 mL/min/1.73sq mKidney failure: <15 mL/min/1.73sq meGFR calculated using average adult body mass. Additional eGFR calculator available at:http://www.[employer]/multiple_crcl_2012.htm Performed By: #### E RTPF, CONNER, LIP, LIVP, TEGCR ####[address] [place] [address] Anion gap 3 molar conc 12 mmol/L Normal 9-17 [facility] Comment on above: Performed By: #### E RTPF, CONNER, LIP, LIVP, TEGCR ####[address] [address] Calcium mass conc 7.7 mg/dL Low 8.6-10.4 [facility] Comment on above: Performed By: #### E RTPF, CONNER, LIP, LIVP, TEGCR ####[facility] [place] [address] Chloride molar conc 105 mmol/L Normal 98-107 [facility] Comment on above: Performed By: #### E RTPF, CONNER, LIP, LIVP, TEGCR ####[facility] [address] [place] [address] CO2 molar conc 29 mmol/L Normal 20-31 [facility] Comment on above: Performed By: #### E RTPF, CONNER, LIP, LIVP, TEGCR ####[address] [place] [address] Creatinine mass conc 1.67 mg/dL High 0.70-1.20 [facility] Comment on above: Performed By: #### E RTPF, CONNER, LIP, LIVP, TEGCR ####[facility] [address] [place] [address] GFR, Amer 52 mL/min Low >60 [facility] Comment on above: Performed By: #### E RTPF, CONNER, LIP, LIVP, TEGCR ####[facility] [address] [place] [address] GFR,non Amer 43 mL/min Low >60 [facility] Comment on above: Performed By: #### E RTPF, CONNER, LIP, LIVP, TEGCR ####[facility] [place] [address] Glucose mass conc 130 mg/dL High 70-99 [facility] Comment on above: Performed By: #### E RTPF, CONNER, LIP, LIVP, TEGCR ####[address] [place] [address] Potassium molar conc 3.4 mmol/L Low 3.7-5.3 [facility] Comment on above: Performed By: #### E RTPF, CONNER, LIP, LIVP, TEGCR ####[facility] [place] [address] Sodium molar conc 146 mmol/L High 135-144 [facility] Comment on above: Performed By: #### E RTPF, CONNER, LIP, LIVP, TEGCR ####[facility] [address] [place] [address] Urea nitrogen mass conc 35 mg/dL High 6-20 [facility] Comment on above: Performed By: #### E RTPF, CONNER, LIP, LIVP, TEGCR ####[address] [place] [address] BUN/CRE Ratio NOT REPORTED Normal 9-20 [facility] Comment on above: Performed By: #### E RTPF, CONNER, LIP, LIVP, TEGCR ####[address] [place] [address] Staging: NOT REPORTED Normal [facility] Comment on above: Performed By: #### E RTPF, CONNER, LIP, LIVP, TEGCR ####[address] [place] [address] (cont.) Normal [facility] Comment on above: Result Comment: Aver age GFR for 50-59 years old: 93 mL/min/1.73sq mChronic Kidney Disease: <60 mL/min/1.73sq mKidney failure: <15 mL/min/1.73sq meGFR calculated using average adult body mass. Additional eGFR calculator available at:http://www.[employer]/multiple_crcl_2012.htm Performed By: #### E RTPF, CONNER, LIP, LIVP, TEGCR ####[address] [address] Anion gap 3 molar conc 11 mmol/L Normal 9-17 [facility] Comment on above: Performed By: #### E RTPF, CONNER, LIP, LIVP, TEGCR ####[address] [place] [address] Calcium mass conc 8.2 mg/dL Low 8.6-10.4 [facility] Comment on above: Performed By: #### E RTPF, CONNER, LIP, LIVP, TEGCR ####[address] [place] [address] Chloride molar conc 99 mmol/L Normal 98-107 [facility] Comment on above: Performed By: #### E RTPF, CONNER, LIP, LIVP, TEGCR ####[address] [place] [address] CO2 molar conc 32 mmol/L High 20-31 [facility] Comment on above: Performed By: #### E RTPF, CONNER, LIP, LIVP, TEGCR ####[address] [address] Creatinine mass conc 1.81 mg/dL High 0.70-1.20 [facility] Comment on above: Performed By: #### E RTPF, CONNER, LIP, LIVP, TEGCR ####[facility] [address] [place] [address] GFR, Amer 47 mL/min Low >60 [facility] Comment on above: Performed By: #### E RTPF, CONNER, LIP, LIVP, TEGCR ####[address] [address] GFR,non Amer 39 mL/min Low >60 [facility] Comment on above: Performed By: #### E RTPF, CONNER, LIP, LIVP, TEGCR ####[address] [address] Glucose mass conc 160 mg/dL High 70-99 [facility] Comment on above: Performed By: #### E RTPF, CONNER, LIP, LIVP, TEGCR ####[facility] [place] [address] Potassium molar conc 4.7 mmol/L Normal 3.7-5.3 [facility] Comment on above: Performed By: #### E RTPF, CONNER, LIP, LIVP, TEGCR ####[address] [address] Sodium molar conc 142 mmol/L Normal 135-144 [facility] Comment on above: Performed By: #### E RTPF, CONNER, LIP, LIVP, TEGCR ####[address] [address] Urea nitrogen mass conc 39 mg/dL High 6-20 [facility] Comment on above: Performed By: #### E RTPF, CONNER, LIP, LIVP, TEGCR ####[address] [place] [address] BUN/CRE Ratio NOT REPORTED Normal - [facility] Comment on above: Performed By: #### E RTPF, CONNER, LIP, LIVP, TEGCR ####[facility] [address] [place] [address] Staging: NOT REPORTED Normal [facility] Comment on above: Performed By: #### E RTPF, CONNER, LIP, LIVP, TEGCR ####[address] [place] [address] C-Reactive Proteinon 018 CRP mass conc 320.1 mg/L High 0.0-5.0 [facility] Comment on above: Result Comment: ADDE D ON Performed By: #### E RTPF, CONNER, LIP, LIVP, TEGCR ####[address] [address] CBC with Diffon 01-28-2018 Abs. Basophil 0.00 k/uL Normal 0.0-0.2 [facility] Comment on above: Performed By: #### E RTPF, CONNER, LIP, LIVP, TEGCR ####[address] [place] [address] Abs.Imm.Granulocyte 0.00 k/uL Normal 0.00-0.30 [facility] Comment on above: Performed By: #### E RTPF, CONNER, LIP, LIVP, TEGCR ####[address] [place] [address] Abs.Neutrophil (Seg) 29.16 k/uL High 1.8-7.7 [facility] Comment on above: Performed By: #### E RTPF, CONNER, LIP, LIVP, TEGCR ####[address] [address] Basophils/100 WBC Auto (Bld) 0 % Normal 0-2 [facility] Comment on above: Performed By: #### E RTPF, CONNER, LIP, LIVP, TEGCR ####[address] [address] Eosinophils Auto #/vol (Bld) 0.00 10*3/uL Normal 0.0-0.4 [facility] Comment on above: Performed By: #### E RTPF, CONNER, LIP, LIVP, TEGCR ####[address] [address] Eosinophils/100 WBC Auto (Bld) 0 % Low 1-4 [facility] Comment on above: Performed By: #### E RTPF, CONNER, LIP, LIVP, TEGCR ####[address] [address] Immature granulocytes #/vol (Bld) 0 % Normal 0 [facility] Comment on above: Performed By: #### E RTPF, CONNER, LIP, LIVP, TEGCR ####[address] [address] Lymphocytes Auto #/vol (Bld) 1.62 10*3/uL Normal 1.0-4.8 [facility] Comment on above: Performed By: #### E RTPF, CONNER, LIP, LIVP, TEGCR ####[address] [address] Lymphocytes/100 WBC Auto (Bld) 5 % Low 24-44 [facility] Comment on above: Performed By: #### E RTPF, CONNER, LIP, LIVP, TEGCR ####[address] [place] [address] Monocytes Auto #/vol (Bld) 1.62 10*3/uL High 0.1-0.8 [facility] Comment on above: Performed By: #### E RTPF, CONNER, LIP, LIVP, TEGCR ####[address] [address] Monocytes/100 WBC Auto (Bld) 5 % Normal 1-7 [facility] Comment on above: Performed By: #### E RTPF, CONNER, LIP, LIVP, TEGCR ####[address] [address] Morphology Interp Eduard (Bld) ANISOCYTOSIS PRESENT Normal [facility] Comment on above: Result Comment: INCR EASED BANDS PRESENT Performed By: #### E RTPF, CONNER, LIP, LIVP, TEGCR ####[address] [address] Neutrophil (Seg) 90 % High 36-66 [facility] Comment on above: Performed By: #### E RTPF, CONNER, LIP, LIVP, TEGCR ####[address] [address] WBC Auto #/vol (Bld) 32.4 10*3/uL Critically high 3.5-11.3 [facility] Comment on above: Result Comment: TEST CONFIRMED Performed By: #### E RTPF, CONNER, LIP, LIVP, TEGCR ####[address] [address] Erythrocyte distribution width Auto Ratio (RBC) 16.6 % High 11.8-14.4 [facility] Comment on above: Performed By: #### E RTPF, CONNER, LIP, LIVP, TEGCR ####[address] [address] Hematocrit Auto Volume Fraction (Bld) 30.3 % Low 40.7-50.3 [facility] Comment on above: Performed By: #### E RTPF, CONNER, LIP, LIVP, TEGCR ####[address] [address] Hemoglobin mass conc (Bld) 9.6 g/dL Low 13.0-17.0 [facility] Comment on above: Performed By: #### E RTPF, CONNER, LIP, LIVP, TEGCR ####[address] [address] MCH Auto Entitic mass (RBC) 30.6 pg Normal 25.2-33.5 [facility] Comment on above: Performed By: #### E RTPF, CONNER, LIP, LIVP, TEGCR ####[address] [address] MCHC Auto mass conc (RBC) 31.7 g/dL Normal 28.4-34.8 [facility] Comment on above: Performed By: #### E RTPF, CONNER, LIP, LIVP, TEGCR ####[address] [address] MCV Auto Entitic volume (RBC) 96.5 fL Normal 82.6-102.9 [facility] Comment on above: Performed By: #### E RTPF, CONNER, LIP, LIVP, TEGCR ####[address] [address] NRBC Automated 0.0 per 100 WBC Normal 0.0 [facility] Comment on above: Performed By: #### E RTPF, CONNER, LIP, LIVP, TEGCR ####[address] [address] Platelet mean volume Auto Entitic volume (Bld) 10.9 fL Normal 8.1-13.5 [facility] Comment on above: Performed By: #### E RTPF, CONNER, LIP, LIVP, TEGCR ####[address] [address] Platelets Auto #/vol (Bld) 642 10*3/uL High 138-453 [facility] Comment on above: Performed By: #### E RTPF, CONNER, LIP, LIVP, TEGCR ####[address] [address] RBC Auto #/vol (Bld) 3.14 10*6/uL Low 4.21-5.77 [facility] Comment on above: Performed By: #### E RTPF, CONNER, LIP, LIVP, TEGCR ####[address] [address] Auto Diff Performed NOT REPORTED Normal [facility] Comment on above: Performed By: #### E RTPF, CONNER, LIP, LIVP, TEGCR ####[address] [address] Platelets Auto #/vol (Bld) NOT REPORTED Normal [facility] Comment on above: Performed By: #### E RTPF, CONNER, LIP, LIVP, TEGCR ####[address] [address] RBC morphology finding Nom (Bld) NOT REPORTED Normal [facility] Comment on above: Performed By: #### E RTPF, CONNER, LIP, LIVP, TEGCR ####[address] [address] WBC Morphology NOT REPORTED Normal [facility] Comment on above: Performed By: #### E RTPF, CONNER, LIP, LIVP, TEGCR ####[address] [address] [address] ABDOMEN PELVIS W IV CONTR Ольга 01-28-2018 CT ABDOMEN PELVIS W IV CONTRAST EXAMINATION:CT OF THE ABDOMEN AND PELVIS WITH CONTRAST 01/27/2018 11:07 pmTECHNIQUE:CT of the abdomen and pelvis was performed with the administration ofintravenous contrast. Multiplanar reformatted images are provided for review.Dose modulation, iterative reconstruction, and/or weight based adjustment ofthe mA/kV was utilized to reduce the radiation dose to as low as reasonablyachievable.COMPARIS ON:01/25/2018HISTORY:ORDERING SYSTEM PROVIDED HISTORY: vomiting/distention/possible pneumatosisTECHNOLOGIST PROVIDED HISTORY:FINDINGS:Lower Chest: emphysema. Bilateral small pleural effusions with adjacentconsolidation likely atelectasis unchanged.Organs: Cholecystectomy. Images degraded by motion artifact. Liver show nofocal lesions. Splenectomy noted. Pancreas, adrenal glands grossly normal.Simple left renal cyst lower pole again noted. No acute process.GI/Bowel: There is limited evaluation due to absence of oral contrast. NGtube terminating in gastric fundus region with stomach collapsed.Generalized fluid-filled dilatation of the small bowel. Contrast which wasmainly in the small bowel on the previous is not seen mainly in the distalcolon. There is also some fluid in mild distention of the right colon.Findings suggestive of ileus. No clear transition point to suggestobstruction. No clear evidence for pneumatosis. There is fecalization ofsome of the small bowel contents.Pelvis: Urinary bladder grossly normal.Peritoneum/Retroperito neum: Atherosclerotic disease. No ascites. Nosignificant lymphadenopathy. In in the anterior right mid abdomen there issome stranding of the peritoneal fat unchanged. Probably related to recentpostsurgical changes.Bones/Soft Tissues: Laparotomy skin leia noted. No acute abnormality ofthe bones. The superficial soft tissues show no significant abnormalities.IMPRESSION: 1. Findings suggestive of small-bowel ileus. Nonetheless, contrast which wasin small bowel on the prior exam has progressed into the distal colon.2. No clear evidence for pneumatosis.Interpreted by:NADEGE Dormanigned by:Hudson Anaya MD01/27/18Final result Normal [facility] Liver Profileon 01-28-2018 Albumin mass conc 2.5 g/dL Low 3.5-5.2 [facility] Comment on above: Performed By: #### E RTPF, CONNER, LIP, LIVP, TEGCR ####[address] [address] Albumin/Globulin mass ratio 0.7 {ratio} Low 1.0-2.5 [facility] Comment on above: Performed By: #### E RTPF, CONNER, LIP, LIVP, TEGCR ####[address] [address] Alkaline Phos 77 U/L Normal 40-129 [facility] Comment on above: Performed By: #### E RTPF, CONNER, LIP, LIVP, TEGCR ####[address] [address] ALT enzyme act/vol 25 U/L Normal 5-41 [facility] Comment on above: Performed By: #### E RTPF, CONNER, LIP, LIVP, TEGCR ####[address] [address] AST enzyme act/vol 55 U/L High <40 [facility] Comment on above: Performed By: #### E RTPF, CONNER, LIP, LIVP, TEGCR ####[address] [address] Bilirubin Ql (U) 1.32 mg/dL High 0.3-1.2 [facility] Comment on above: Performed By: #### E RTPF, CONNER, LIP, LIVP, TEGCR ####[address] [address] Bilirubin, Indirect 0.59 mg/dL Normal 0.00-1.00 [facility] Comment on above: Performed By: #### E RTPF, CONNER, LIP, LIVP, TEGCR ####[address] [address] Bilirubin.direct mass conc 0.73 mg/dL High <0.31 [facility] Comment on above: Performed By: #### E RTPF, CONNER, LIP, LIVP, TEGCR ####[facility] [address] [place] [address] Protein mass conc 6.3 g/dL Low 6.4-8.3 [facility] Comment on above: Performed By: #### E RTPF, CONNER, LIP, LIVP, TEGCR ####[facility] [address] [place] [address] Globulin Calculated mass conc (S) NOT REPORTED Normal 1.5-3.8 [facility] Comment on above: Performed By: #### E RTPF, CONNER, LIP, LIVP, TEGCR ####[facility] [address] [place] [address] Magnesiumon 01-28-2018 Magnesium mass conc 2.7 mg/dL High 1.6-2.6 [facility] Comment on above: Performed By: #### E RTPF, CONNER, LIP, LIVP, TEGCR ####[facility] [address] [place] [address] Phosphorus, Inorg.on 018 Phosphorus, Inorg. 3.6 mg/dL Normal 2.5-4.5 [facility] Comment on above: Performed By: #### E RTPF, CONNER, LIP, LIVP, TEGCR ####[facility] [address] [place] [address] Prealbuminon 01-28-2018 Prealbumin mass conc 4.8 mg/dL Low 20-40 [facility] Comment on above: Performed By: #### E RTPF, CONNER, LIP, LIVP, TEGCR ####[facility] [address] [place] [address] TSH w/reflex to FT4on 2017 Thyrotropin Qn 2.70 m[IU]/L Normal 0.30-5.00 [facility] Comment on above: Performed By: #### E RTPF, CONNER, LIP, LIVP, TEGCR ####[facility] [address] [place], [place] [id number] Transferrinon 01-28-2018 Transferrin mass conc 115 mg/dL Low 200-360 [facility] Comment on above: Performed By: #### E RTPF, CONNER, LIP, LIVP, TEGCR ####[facility] [address] [place], [place] [id number] XR CHEST PORTABLEon 01-29-20 18 XR CHEST PORTABLE EXAMINATION:SINGLE X RAY VIEW OF THE CHEST, 01/27/2018 9:18 amCOMPARISON:01/26/2018HISTOR Y:ORDERING SYSTEM PROVIDED HISTORY: Pleural effusions f/uTECHNOLOGIST PROVIDED HISTORY:Pleural effusions f/uFINDINGS:Enteric tube passes beneath the diaphragm. Cardiac monitoring leads overliethe chest. Artifact from spinal brace limits evaluation. There arebilateral pleural effusions similar to slightly increased compared to theprior study. Braided metallic object overlying the neck base is felt torepresent external foreign body but correlation with physical exam is advised.IMPRESSION: 1. Slightly increased bilateral pleural effusions with associated airspacedisease.2. Metallic object overlying the chest corresponding to spine brace.3. Braided metallic object at the base of the neck is felt to be external tothe patient. Please correlate clinically.Interpreted by:NADEGE Lancasterigned by:Hebert Best MD01/28/18inal result Normal [facility] Basic Metabolic Profon 01-27 (cont.) Normal [facility] Comment on above: Result Comment: Aver age GFR for 50-59 years old: 93 mL/min/1.73sq mChronic Kidney Disease: <60 mL/min/1.73sq mKidney failure: <15 mL/min/1.73sq meGFR calculated using average adult body mass. Additional eGFR calculator available at:http://www.globalrph.com/multiple_crcl_2012.htm Performed By: #### E RTPF, CONNER, LIP, LIVP, TEGCR ####[address] [address] Anion gap 3 molar conc 12 mmol/L Normal 9-17 [facility] Comment on above: Performed By: #### E RTPF, CONNER, LIP, LIVP, TEGCR ####[address] [address] Calcium mass conc 8.9 mg/dL Normal 8.6-10.4 [facility] Comment on above: Performed By: #### E RTPF, CONNER, LIP, LIVP, TEGCR ####[address] [address] Chloride molar conc 100 mmol/L Normal 98-107 [facility] Comment on above: Performed By: #### E RTPF, CONNER, LIP, LIVP, TEGCR ####[address] [address] CO2 molar conc 31 mmol/L Normal 20-31 [facility] Comment on above: Performed By: #### E RTPF, CONNER, LIP, LIVP, TEGCR ####[address] [address] Creatinine mass conc 1.26 mg/dL High 0.70-1.20 [facility] Comment on above: Performed By: #### E RTPF, CONNER, LIP, LIVP, TEGCR ####[address] [address] GFR, Amer >60 Normal >60 [facility] Comment on above: Performed By: #### E RTPF, CONNER, LIP, LIVP, TEGCR ####[address] [address] GFR,non Amer 59 mL/min Low >60 [facility] Comment on above: Performed By: #### E RTPF, CONNER, LIP, LIVP, TEGCR ####[address] [place] [address] Glucose mass conc 138 mg/dL High 70-99 [facility] Comment on above: Performed By: #### E RTPF, CONNER, LIP, LIVP, TEGCR ####[address] [address] Potassium molar conc 3.9 mmol/L Normal 3.7-5.3 [facility] Comment on above: Performed By: #### E RTPF, CONNER, LIP, LIVP, TEGCR ####[address] [address] Sodium molar conc 143 mmol/L Normal 135-144 [facility] Comment on above: Performed By: #### E RTPF, CONNER, LIP, LIVP, TEGCR ####[address] [address] Urea nitrogen mass conc 27 mg/dL High 6-20 [facility] Comment on above: Performed By: #### E RTPF, CONNER, LIP, LIVP, TEGCR ####[address] [address] BUN/CRE Ratio NOT REPORTED Normal 9-20 [facility] Comment on above: Performed By: #### E RTPF, CONNER, LIP, LIVP, TEGCR ####[address] [address] Staging: NOT REPORTED Normal [facility] Comment on above: Performed By: #### E RTPF, CONNER, LIP, LIVP, TEGCR ####[address] [address] CBC with Diffon 01-27-2018 Abs. Basophil 0.00 k/uL Normal 0.0-0.2 [facility] Comment on above: Performed By: #### E RTPF, CONNER, LIP, LIVP, TEGCR ####[address] [address] Abs.Imm.Granulocyte 0.24 k/uL Normal 0.00-0.30 [facility] Comment on above: Performed By: #### E RTPF, CONNER, LIP, LIVP, TEGCR ####[address] [address] Abs.Neutrophil (Seg) 19.29 k/uL High 1.8-7.7 [facility] Comment on above: Performed By: #### E RTPF, CONNER, LIP, LIVP, TEGCR ####[place] [address] Basophils/100 WBC Auto (Bld) 0 % Normal 0-2 [facility] Comment on above: Performed By: #### E RTPF, CONNER, LIP, LIVP, TEGCR ####[address] [address] Eosinophils Auto #/vol (Bld) 0.96 10*3/uL High 0.0-0.4 [facility] Comment on above: Performed By: #### E RTPF, CONNER, LIP, LIVP, TEGCR ####[address] [address] Eosinophils/100 WBC Auto (Bld) 4 % Normal 1-4 [facility] Comment on above: Performed By: #### E RTPF, CONNER, LIP, LIVP, TEGCR ####[address] [address] Immature granulocytes #/vol (Bld) 1 % High 0 [facility] Comment on above: Performed By: #### E RTPF, CONNER, LIP, LIVP, TEGCR ####[address] [address] Lymphocytes Auto #/vol (Bld) 2.65 10*3/uL Normal 1.0-4.8 [facility] Comment on above: Performed By: #### E RTPF, CONNER, LIP, LIVP, TEGCR ####[address] [address] Lymphocytes/100 WBC Auto (Bld) 11 % Low 24-44 [facility] Comment on above: Performed By: #### E RTPF, CONNER, LIP, LIVP, TEGCR ####[address] [address] Monocytes Auto #/vol (Bld) 0.96 10*3/uL High 0.1-0.8 [facility] Comment on above: Performed By: #### E RTPF, CONNER, LIP, LIVP, TEGCR ####[address] [address] Monocytes/100 WBC Auto (Bld) 4 % Normal 1-7 [facility] Comment on above: Performed By: #### E RTPF, CONNER, LIP, LIVP, TEGCR ####[address] [address] Morphology Interp Eduard (Bld) ANISOCYTOSIS PRESENT Normal [facility] Comment on above: Result Comment: INCR EASED BANDS PRESENTTOXIC GRANULATION PRESENT Performed By: #### E RTPF, CONNER, LIP, LIVP, TEGCR ####[address] [address] Neutrophil (Seg) 80 % High 36-66 [facility] Comment on above: Performed By: #### E RTPF, CONNER, LIP, LIVP, TEGCR ####[address] [place] [address] Nucleated RBC/100 WBC Ratio (Bld) 1 per 100 WBC High 0 [facility] Comment on above: Performed By: #### E RTPF, CONNER, LIP, LIVP, TEGCR ####[address] [address] Erythrocyte distribution width Auto Ratio (RBC) 16.1 % High 11.8-14.4 [facility] Comment on above: Performed By: #### E RTPF, CONNER, LIP, LIVP, TEGCR ####[address] [address] Hematocrit Auto Volume Fraction (Bld) 31.8 % Low 40.7-50.3 [facility] Comment on above: Performed By: #### E RTPF, CONNER, LIP, LIVP, TEGCR ####[address] [address] Hemoglobin mass conc (Bld) 10.1 g/dL Low 13.0-17.0 [facility] Comment on above: Performed By: #### E RTPF, CONNER, LIP, LIVP, TEGCR ####[address] [address] MCH Auto Entitic mass (RBC) 30.5 pg Normal 25.2-33.5 [facility] Comment on above: Performed By: #### E RTPF, CONNER, LIP, LIVP, TEGCR ####[address] [address] MCHC Auto mass conc (RBC) 31.8 g/dL Normal 28.4-34.8 [facility] Comment on above: Performed By: #### E RTPF, CONNER, LIP, LIVP, TEGCR ####[address] [address] MCV Auto Entitic volume (RBC) 96.1 fL Normal 82.6-102.9 [facility] Comment on above: Performed By: #### E RTPF, CONNER, LIP, LIVP, TEGCR ####[address] [address] NRBC Automated 0.1 per 100 WBC High 0.0 [facility] Comment on above: Performed By: #### E RTPF, CONNER, LIP, LIVP, TEGCR ####[address] [address] Platelet mean volume Auto Entitic volume (Bld) 11.0 fL Normal 8.1-13.5 [facility] Comment on above: Performed By: #### E RTPF, CONNER, LIP, LIVP, TEGCR ####[address] [address] Platelets Auto #/vol (Bld) 488 10*3/uL High 138-453 [facility] Comment on above: Performed By: #### E RTPF, CONNER, LIP, LIVP, TEGCR ####[address] [address] RBC Auto #/vol (Bld) 3.31 10*6/uL Low 4.21-5.77 [facility] Comment on above: Performed By: #### E RTPF, CONNER, LIP, LIVP, TEGCR ####[address] [address] WBC Auto #/vol (Bld) 24.1 10*3/uL High 3.5-11.3 [facility] Comment on above: Performed By: #### E RTPF, CONNER, LIP, LIVP, TEGCR ####[address] [address] Auto Diff Performed NOT REPORTED Normal [facility] Comment on above: Performed By: #### E RTPF, CONNER, LIP, LIVP, TEGCR ####[address] [address] Platelets Auto #/vol (Bld) NOT REPORTED Normal [facility] Comment on above: Performed By: #### E RTPF, CONNER, LIP, LIVP, TEGCR ####[address] [address] RBC morphology finding Nom (Bld) NOT REPORTED Normal [facility] Comment on above: Performed By: #### E RTPF, CONNER, LIP, LIVP, TEGCR ####[address] [address] WBC Morphology NOT REPORTED Normal [facility] Comment on above: Performed By: #### E RTPF, CONNER, LIP, LIVP, TEGCR ####[address] [address] Magnesiumon 01-27-2018 Magnesium mass conc 2.6 mg/dL Normal 1.6-2.6 [facility] Comment on above: Performed By: #### E RTPF, CONNER, LIP, LIVP, TEGCR ####[address] [address] Phosphorus, Inorg.on 018 Phosphorus, Inorg. 4.5 mg/dL Normal 2.5-4.5 [facility] Comment on above: Performed By: #### E RTPF, CONNER, LIP, LIVP, TEGCR ####[address] [address] Vancomycin,Randomon 01-28-20 18 Vancomycin 11.1 ug/mL Normal [facility] Comment on above: Result Comment: High er trough serum vancomycin concentrations of 15-20 ug/mL are recommended for complicated infections such as bacteremia, endocarditis, osteomyelitis, meningitis, and hospital acquired pneumonia. Performed By: #### E RTPF, CONNER, LIP, LIVP, TEGCR ####[address] [place] [address] Date last dose, NOT REPORTED Normal [facility] Comment on above: Performed By: #### E RTPF, CONNER, LIP, LIVP, TEGCR ####[address] [place] [address] Dose amount, NOT REPORTED Normal [facility] Comment on above: Performed By: #### E RTPF, CONNER, LIP, LIVP, TEGCR ####[address] [place] [address] Time last dose, NOT REPORTED Normal [facility] Comment on above: Performed By: #### E RTPF, CONNER, LIP, LIVP, TEGCR ####[address] [address] XR ABDOMEN (KUB) (SINGLE AP VIEW)on 01-27-2018 XR ABDOMEN (KUB) (SINGLE AP VIEW) EXAMINATION:SINGLE SUPINE XRAY VIEW(S) OF THE ABDOMEN01/27/2018 6:12 pmCOMPARISON:Earlier the same day at 1532 hours.HISTORY:ORDERING SYSTEM PROVIDED HISTORY: nt placementTECHNOLOGIST PROVIDED HISTORY:nt placementFINDINGS:AP portable view of the abdomen time stamped at 1801 hours demonstratesinterval placement of an intestinal tube terminating in the lateral gastricfundus. Diffuse distention of the included intestinal tract is noted.Midline surgical clips are present in the abdomen. No free air is seen.Pleural effusions are noted with bibasilar opacity consistent with airspacedisease. Heart size is stable.IMPRESSION: Interval placement of an intestinal tube terminating in the lateral gastricfundus. No change in gaseous intestinal distention, and bibasilar pulmonaryopacities.Interprete d by:NADEGE Gabrieligned by:Molly Moreno MD01/27/18inal result Normal [facility] XR ABDOMEN (KUB) (SINGLE AP VIEW) EXAMINATION:SINGLE SUPINE XRAY VIEW(S) OF THE ABDOMEN01/27/2018 3:41 pmCOMPARISON:Abdominal radiograph dated 01/26/2018HISTORY:ORDERING SYSTEM PROVIDED HISTORY: Vomiting/abd distentionTECHNOLOGIST PROVIDED HISTORY:Vomiting/abd distentionFINDINGS:Proximal stomach and enteric tube are not included in the field of view.There is diffuse distention of small and large bowel loops. Small bowelloops measure up to 3.9 cm. Bubbly lucencies are seen in the bowel in theleft side of the abdomen, raising concern for pneumatosis. Cholecystectomyclips are noted.IMPRESSION: Diffuse gas distention of several small and large bowel loops, most likelyrelated to ileus. However, there is interval development of bubbly lucenciesin the loops of bowel seen in the left side of the abdomen, concerning forpneumatosis. Possibility of bowel ischemia is not excluded.The findings were sent to the [facility]iology Results [facility] at 4:00pm on 01/27/2018 to be communicated to a licensed caregiver.Interpreted by:Cecile García, DOSigned by:Cecile García, DO01/27/18inal result Normal [facility] XR LUMBAR SPINE (2-3 VIEWS)o n 01-27-2018 XR LUMBAR SPINE (2-3 VIEWS) EXAMINATION:3 XRAY VIEWS OF THE LUMBAR SPINE01/27/2018 10:46 amCOMPARISON:Abdominal radiograph January 26, 2018. CT abdomen and pelvis January.HISTORY:ORDERING SYSTEM PROVIDED HISTORY: L1 fx, please obtain standing upright APand lateral views with brace onTECHNOLOGIST PROVIDED HISTORY:L1 fx, please obtain standing upright AP and lateral views with brace onFINDINGS:The patient is imaged in a lumbar brace. The L1 compression fracture isagain demonstrated. The known T12 spinous process fracture is notdemonstrated on this exam. No listhesis. No new osseous abnormalityidentified.An enteric tube is present in the region of the distal body of the stomach.Diffuse bowel dilatation is noted. Small amount of residual contrast ispresent in the descending colon. Midline abdominal skin leia are present.IMPRESSION: Redemonstration of L1 compression fracture. No listhesis or new osseousabnormality identified.Enteric tube in the distal body of the stomach. Diffuse mild boweldilatation and sequela of abdominal surgery is noted, consistent with ileus.Interpreted by:NADEGE Burksigned by:Fidel Marley MD01/27/18inal result Normal [facility] Basic Metabolic Profon 01-26 (cont.) Normal [facility] Comment on above: Result Comment: Aver age GFR for 50-59 years old: 93 mL/min/1.73sq mChronic Kidney Disease: <60 mL/min/1.73sq mKidney failure: <15 mL/min/1.73sq meGFR calculated using average adult body mass. Additional eGFR calculator available at:http://www.[employer]/multiple_crcl_2011.htm Performed By: #### E RTPF, CONNER, LIP, LIVP, TEGCR ####[facility] [id number] [place] [address] Anion gap 3 molar conc 13 mmol/L Normal 9-17 [facility] Comment on above: Performed By: #### E RTPF, CONNER, LIP, LIVP, TEGCR ####[facility] [id number] [place] [address] Calcium mass conc 8.3 mg/dL Low 8.6-10.4 [facility] Comment on above: Performed By: #### E RTPF, CONNER, LIP, LIVP, TEGCR ####[facility] [address] [place] [address] Chloride molar conc 95 mmol/L Low 98-107 [facility] Comment on above: Performed By: #### E RTPF, CONNER, LIP, LIVP, TEGCR ####[facility] [address] [place] [address] CO2 molar conc 31 mmol/L Normal 20-31 [facility] Comment on above: Performed By: #### E RTPF, CONNER, LIP, LIVP, TEGCR ####[address] [place] [address] Creatinine mass conc 1.14 mg/dL Normal 0.70-1.20 [facility] Comment on above: Performed By: #### E RTPF, CONNER, LIP, LIVP, TEGCR ####[address] [place] [address] GFR, Amer >60 Normal >60 [facility] Comment on above: Performed By: #### E RTPF, CONNER, LIP, LIVP, TEGCR ####[address] [address] GFR,non Amer >60 Normal >60 [facility] Comment on above: Performed By: #### E RTPF, CONNER, LIP, LIVP, TEGCR ####[address] [address] Glucose mass conc 128 mg/dL High 70-99 [facility] Comment on above: Performed By: #### E RTPF, CONNER, LIP, LIVP, TEGCR ####[address] [address] Potassium molar conc 3.2 mmol/L Low 3.7-5.3 [facility] Comment on above: Performed By: #### E RTPF, CONNER, LIP, LIVP, TEGCR ####[address] [address] Sodium molar conc 139 mmol/L Normal 135-144 [facility] Comment on above: Performed By: #### E RTPF, CONNER, LIP, LIVP, TEGCR ####[address] [place] [address] Urea nitrogen mass conc 21 mg/dL High 6-20 [facility] Comment on above: Performed By: #### E RTPF, CONNER, LIP, LIVP, TEGCR ####[facility] [address] [place] [address] BUN/CRE Ratio NOT REPORTED Normal -20 [facility] Comment on above: Performed By: #### E RTPF, CONNER, LIP, LIVP, TEGCR ####[address] [place] [address] Staging: NOT REPORTED Normal [facility] Comment on above: Performed By: #### E RTPF, CONNER, LIP, LIVP, TEGCR ####[address] [address] Brain Natri. Peptideon 01-26 Natriuretic peptide B mass conc (Bld) 2216 pg/mL High <300 [facility] Comment on above: Result Comment: Pro- BNP results cannot be compared to BNP results. Performed By: #### E RTPF, CONNER, LIP, LIVP, TEGCR ####[address] [address] Natriuretic peptide B mass conc (Bld) Normal [facility] Comment on above: Result Comment: Pro- BNP Reference Range:Rule Out: <300Grey Zone: Age <50 300-450 Age 50-75 300-900 Age >75 300-1800Usually represents mild to moderate HF but other cardiopulmonary causes cannot be ruled out.Rule In: Age <50 >450 Age 50-75 >900 Age >75 >1800 Performed By: #### E RTPF, CONNER, LIP, LIVP, TEGCR ####[address] [place] [address] CBC with Diffon 01-26-2018 Abs. Basophil 0.00 k/uL Normal 0.0-0.2 [facility] Comment on above: Performed By: #### E RTPF, CONNER, LIP, LIVP, TEGCR ####[address] [place] [address] Abs.Imm.Granulocyte 0.00 k/uL Normal 0.00-0.30 [facility] Comment on above: Performed By: #### E RTPF, CONNER, LIP, LIVP, TEGCR ####[place] [address] Abs.Neutrophil (Seg) 21.60 k/uL High 1.8-7.7 [facility] Comment on above: Performed By: #### E RTPF, CONNER, LIP, LIVP, TEGCR ####[place] [address] Basophils/100 WBC Auto (Bld) 0 % Normal 0-2 [facility] Comment on above: Performed By: #### E RTPF, CONNER, LIP, LIVP, TEGCR ####[place] [address] Eosinophils Auto #/vol (Bld) 0.00 10*3/uL Normal 0.0-0.4 [facility] Comment on above: Performed By: #### E RTPF, CONNER, LIP, LIVP, TEGCR ####[place] [address] Eosinophils/100 WBC Auto (Bld) 0 % Low 1-4 [facility] Comment on above: Performed By: #### E RTPF, CONNER, LIP, LIVP, TEGCR ####[address] [address] Immature granulocytes #/vol (Bld) 0 % Normal 0 [facility] Comment on above: Performed By: #### E RTPF, CONNER, LIP, LIVP, TEGCR ####[address] [address] Lymphocytes Auto #/vol (Bld) 3.17 10*3/uL Normal 1.0-4.8 [facility] Comment on above: Performed By: #### E RTPF, CONNER, LIP, LIVP, TEGCR ####[address] [address] Lymphocytes/100 WBC Auto (Bld) 11 % Low 24-44 [facility] Comment on above: Performed By: #### E RTPF, CONNER, LIP, LIVP, TEGCR ####[address] [address] Monocytes Auto #/vol (Bld) 4.03 10*3/uL High 0.1-0.8 [facility] Comment on above: Performed By: #### E RTPF, CONNER, LIP, LIVP, TEGCR ####[address] [address] Monocytes/100 WBC Auto (Bld) 14 % High 1-7 [facility] Comment on above: Performed By: #### E RTPF, CONNER, LIP, LIVP, TEGCR ####[address] [address] Morphology Interp Eduard (Bld) ANISOCYTOSIS PRESENT Normal [facility] Comment on above: Result Comment: INCR EASED BANDS PRESENTTOXIC GRANULATION PRESENT Performed By: #### E RTPF, CONNER, LIP, LIVP, TEGCR ####[address] [address] Neutrophil (Seg) 75 % High 36-66 [facility] Comment on above: Performed By: #### E RTPF, CONNER, LIP, LIVP, TEGCR ####[address] [address] Erythrocyte distribution width Auto Ratio (RBC) 16.2 % High 11.8-14.4 [facility] Comment on above: Result Comment: ADDE D ON Performed By: #### E RTPF, CONNER, LIP, LIVP, TEGCR ####[address] [address] Hematocrit Auto Volume Fraction (Bld) 31.2 % Low 40.7-50.3 [facility] Comment on above: Result Comment: ADDE D ON Performed By: #### E RTPF, CONNER, LIP, LIVP, TEGCR ####[address] [address] Hemoglobin mass conc (Bld) 10.1 g/dL Low 13.0-17.0 [facility] Comment on above: Result Comment: ADDE D ON Performed By: #### E RTPF, CONNER, LIP, LIVP, TEGCR ####[address] [address] MCH Auto Entitic mass (RBC) 30.9 pg Normal 25.2-33.5 [facility] Comment on above: Result Comment: ADDE D ON Performed By: #### E RTPF, CONNER, LIP, LIVP, TEGCR ####[address] [address] MCHC Auto mass conc (RBC) 32.4 g/dL Normal 28.4-34.8 [facility] Comment on above: Result Comment: ADDE D ON Performed By: #### E RTPF, CONNER, LIP, LIVP, TEGCR ####[address] [address] MCV Auto Entitic volume (RBC) 95.4 fL Normal 82.6-102.9 [facility] Comment on above: Result Comment: ADDE D ON Performed By: #### E RTPF, CONNER, LIP, LIVP, TEGCR ####[address] [address] NRBC Automated 0.1 per 100 WBC High 0.0 [facility] Comment on above: Result Comment: ADDE D ON Performed By: #### E RTPF, CONNER, LIP, LIVP, TEGCR ####[address] [address] Platelet mean volume Auto Entitic volume (Bld) 11.4 fL Normal 8.1-13.5 [facility] Comment on above: Result Comment: SOTO Lynne ON Performed By: #### E RTPF, CONNER, LIP, LIVP, TEGCR ####[address] [address] Platelets Auto #/vol (Bld) 328 10*3/uL Normal 138-453 [facility] Comment on above: Result Comment: SOTO Lynne ON Performed By: #### E RTPF, CONNER, LIP, LIVP, TEGCR ####[address] [address] RBC Auto #/vol (Bld) 3.27 10*6/uL Low 4.21-5.77 [facility] Comment on above: Result Comment: SOTO Lynne ON Performed By: #### E RTPF, CONNER, LIP, LIVP, TEGCR ####[address] [address] WBC Auto #/vol (Bld) 28.8 10*3/uL High 3.5-11.3 [facility] Comment on above: Result Comment: SOTO Lynne ON Performed By: #### E RTPF, CONNER, LIP, LIVP, TEGCR ####[address] [address] Auto Diff Performed NOT REPORTED Normal [facility] Comment on above: Performed By: #### E RTPF, CONNER, LIP, LIVP, TEGCR ####[address] [address] Platelets Auto #/vol (Bld) NOT REPORTED Normal [facility] Comment on above: Performed By: #### E RTPF, CONNER, LIP, LIVP, TEGCR ####[address] [address] RBC morphology finding Nom (Bld) NOT REPORTED Normal [facility] Comment on above: Performed By: #### E RTPF, CONNER, LIP, LIVP, TEGCR ####[address] [address] WBC Morphology NOT REPORTED Normal [facility] Comment on above: Performed By: #### E RTPF, CONNER, LIP, LIVP, TEGCR ####[address] [address] Calcium, Ionicon 01-26-2018 Calcium mass conc 1.22 mmol/L Normal 1.13-1.33 [facility] Comment on above: Performed By: #### E RTPF, CONNER, LIP, LIVP, TEGCR ####[address] [address] Calcium mass conc 1.04 mmol/L Low 1.13-1.33 [facility] Comment on above: Performed By: #### E RTPF, CONNER, LIP, LIVP, TEGCR ####[address] [address] K (Potassium)on 01-26-2018 Potassium molar conc 3.7 mmol/L Normal 3.7-5.3 [facility] Comment on above: Performed By: #### E RTPF, CONNER, LIP, LIVP, TEGCR ####[address] [address] Potassium molar conc 3.2 mmol/L Low 3.7-5.3 [facility] Comment on above: Performed By: #### E RTPF, CONNER, LIP, LIVP, TEGCR ####[address] [address] Potassium molar conc 3.3 mmol/L Low 3.7-5.3 [facility] Comment on above: Performed By: #### E RTPF, CONNER, LIP, LIVP, TEGCR ####[address] [address] Magnesiumon 01-26-2018 Magnesium mass conc 2.2 mg/dL Normal 1.6-2.6 [facility] Comment on above: Performed By: #### E RTPF, CONNER, LIP, LIVP, TEGCR ####[address] [address] Phosphorus, Inorg.on 018 Phosphorus, Inorg. 3.8 mg/dL Normal 2.5-4.5 [facility] Comment on above: Performed By: #### E RTPF, CONNER, LIP, LIVP, TEGCR ####[address] [address] Vancomycin Troughon 01-27-20 18 Vancomycin Trough 25.3 ug/mL Critically high 10.0-20.0 [facility] Comment on above: Result Comment: High er trough serum vancomycin concentrations of 15-20 ug/mL are recommended for complicated infections such as bacteremia, endocarditis, osteomyelitis, meningitis, and hospital acquired pneumonia.ADDED ON Performed By: #### E RTPF, CONNER, LIP, LIVP, TEGCR ####[address] [address] Date last dose, .BLOOD Normal [facility] Comment on above: Performed By: #### E RTPF, CONNER, LIP, LIVP, TEGCR ####[address] [address] Dose amount, .BLOOD Normal [facility] Comment on above: Performed By: #### E RTPF, CONNER, LIP, LIVP, TEGCR ####[address] [place] [address] Time last dose, .BLOOD Normal [facility] Comment on above: Performed By: #### E CONNER CALDERON LIP, LIVP, TEGCR ####[address] [place] [address] XR ABDOMEN (KUB) (SINGLE AP VIEW)on 01-26-2018 XR ABDOMEN (KUB) (SINGLE AP VIEW) EXAMINATION:SINGLE SUPINE XRAY VIEW(S) OF THE ABDOMEN01/26/2018 5:47 amCOMPARISON:Radiograph January 21, 2018. Abdominal CT January 25, 2018.HISTORY:ORDERING SYSTEM PROVIDED HISTORY: comparisonTECHNOLOGIST PROVIDED HISTORY:comparisonFINDINGS:Th e enteric tube is coiled in the body of the stomach. Midline skin staplesare present. Gas is present within nondilated loops of small and largebowel. Mild stool burden and oral contrast within the colon to the level ofthe rectum. Surgical clips consistent with cholecystectomy are noted. Theosseous structures appear intact.IMPRESSION: Nonobstructive bowel gas pattern. Transit of oral contrast to the rectum.Enteric tube terminates in the body of the stomach.Interpreted by:NADEGE Burksigned by:Fidel Marley MD01/26/18Final result Normal [facility] XR CHEST PORTABLEon 01-27-20 18 XR CHEST PORTABLE EXAMINATION:SINGLE X RAY VIEW OF THE CHEST01/26/2018 5:46 amCOMPARISON:01/25/2018HISTOR Y:ORDERING SYSTEM PROVIDED HISTORY: comparisonTECHNOLOGIST PROVIDED HISTORY:comparisonFINDINGS:Mi ld cardiomegaly. Increased pulmonary vascular congestion and interstitialedema. Increasing although small bilateral pleural effusions. Nopneumothorax. Basilar atelectasis. No focal consolidation.IMPRESSION: Increasing pulmonary edema and pleural effusions.Interpreted by:NADEGE Wootenigned by:Gabino Suero MD01/26/18Final result Normal [facility] Basic Metabolic Profon 01-25 Creatinine mass conc 0.72 mg/dL Normal 0.70-1.20 [facility] Comment on above: Result Comment: ICTE LOUIE SPECIMEN Performed By: #### E RTASYA, HAMIDA PRIETO, LIVP, TEGCR ####[facility] [address] [place] [address] GFR, Amer >60 Normal >60 [facility] Comment on above: Performed By: #### E RTPF, CONNER, LIP, LIVP, TEGCR ####[address] [place] [address] GFR,non Amer >60 Normal >60 [facility] Comment on above: Performed By: #### E RTPF, CONNER, LIP, LIVP, TEGCR ####[address] [address] (cont.) Normal [facility] Comment on above: Result Comment: Aver age GFR for 50-59 years old: 93 mL/min/1.73sq mChronic Kidney Disease: <60 mL/min/1.73sq mKidney failure: <15 mL/min/1.73sq meGFR calculated using average adult body mass. Additional eGFR calculator available at:http://www.[employer]/multiple_crcl_2012.htm Performed By: #### E RTPF, CONNER, LIP, LIVP, TEGCR ####[address] [place] [address] Anion gap 3 molar conc 14 mmol/L Normal 9-17 [facility] Comment on above: Performed By: #### E RTPF, CONNER, LIP, LIVP, TEGCR ####[address] [place] [address] Calcium mass conc 8.6 mg/dL Normal 8.6-10.4 [facility] Comment on above: Performed By: #### E RTPF, CONNER, LIP, LIVP, TEGCR ####[facility] [place] [address] Chloride molar conc 97 mmol/L Low 98-107 [facility] Comment on above: Performed By: #### E RTPF, CONNER, LIP, LIVP, TEGCR ####[facility] [address] [place] [address] CO2 molar conc 24 mmol/L Normal 20-31 [facility] Comment on above: Performed By: #### E RTPF, CONNER, LIP, LIVP, TEGCR ####[address] [place] [address] Glucose mass conc 113 mg/dL High 70-99 [facility] Comment on above: Performed By: #### E RTPF, CONNER, LIP, LIVP, TEGCR ####[address] [address] Potassium molar conc 3.3 mmol/L Low 3.7-5.3 [facility] Comment on above: Performed By: #### E RTPF, CONNER, LIP, LIVP, TEGCR ####[address] [place] [address] Sodium molar conc 135 mmol/L Normal 135-144 [facility] Comment on above: Performed By: #### E RTPF, CONNER, LIP, LIVP, TEGCR ####[facility] [place] [address] Urea nitrogen mass conc 14 mg/dL Normal 6-20 [facility] Comment on above: Performed By: #### E RTPF, CONNER, LIP, LIVP, TEGCR ####[facility] [place] [address] BUN/CRE Ratio NOT REPORTED Normal 9-20 [facility] Comment on above: Performed By: #### E RTPF, CONNER, LIP, LIVP, TEGCR ####[facility] [place] [address] Staging: NOT REPORTED Normal [facility] Comment on above: Performed By: #### E RTPF, CONNER, LIP, LIVP, TEGCR ####[place] [address] CBC with Diffon 01-25-2018 Abs. Basophil 0.00 k/uL Normal 0.0-0.2 [facility] Comment on above: Performed By: #### E RTPF, CONNER, LIP, LIVP, TEGCR ####[place] [address] Abs.Imm.Granulocyte 1.00 k/uL High 0.00-0.30 [facility] Comment on above: Performed By: #### E RTPF, CONNER, LIP, LIVP, TEGCR ####[address] [address] Abs.Neutrophil (Seg) 15.00 k/uL High 1.8-7.7 [facility] Comment on above: Performed By: #### E RTPF, CONNER, LIP, LIVP, TEGCR ####[address] [address] Basophils/100 WBC Auto (Bld) 0 % Normal 0-2 [facility] Comment on above: Performed By: #### E RTPF, CONNER, LIP, LIVP, TEGCR ####[address] [address] Eosinophils Auto #/vol (Bld) 0.20 10*3/uL Normal 0.0-0.4 [facility] Comment on above: Performed By: #### E RTPF, CONNER, LIP, LIVP, TEGCR ####[address] [address] Eosinophils/100 WBC Auto (Bld) 1 % Normal 1-4 [facility] Comment on above: Performed By: #### E RTPF, CONNER, LIP, LIVP, TEGCR ####[address] [address] Immature granulocytes #/vol (Bld) 5 % High 0 [facility] Comment on above: Performed By: #### E RTPF, CONNER, LIP, LIVP, TEGCR ####[address] [address] Lymphocytes Auto #/vol (Bld) 1.20 10*3/uL Normal 1.0-4.8 [facility] Comment on above: Performed By: #### E RTPF, CONNER, LIP, LIVP, TEGCR ####[address] [address] Lymphocytes/100 WBC Auto (Bld) 6 % Low 24-44 [facility] Comment on above: Performed By: #### E RTPF, CONNER, LIP, LIVP, TEGCR ####[address] [address] Monocytes Auto #/vol (Bld) 2.60 10*3/uL High 0.1-0.8 [facility] Comment on above: Performed By: #### E RTPF, CONNER, LIP, LIVP, TEGCR ####[address] [address] Monocytes/100 WBC Auto (Bld) 13 % High 1-7 [facility] Comment on above: Performed By: #### E RTPF, CONNER, LIP, LIVP, TEGCR ####[address] [address] Morphology Interp Eduard (Bld) INCREASED BANDS PRESENT Normal [facility] Comment on above: Result Comment: ANIS OCYTOSIS PRESENTTOXIC GRANULATION PRESENT Performed By: #### E RTPF, CONNER, LIP, LIVP, TEGCR ####[address] [address] Neutrophil (Seg) 75 % High 36-66 [facility] Comment on above: Performed By: #### E RTPF, CONNER, LIP, LIVP, TEGCR ####[address] [address] NRBC Automated 0.1 per 100 WBC High 0.0 [facility] Comment on above: Performed By: #### E RTPF, CONNER, LIP, LIVP, TEGCR ####[address] [address] Platelet mean volume Auto Entitic volume (Bld) 11.5 fL Normal 8.1-13.5 [facility] Comment on above: Performed By: #### E RTPF, CONNER, LIP, LIVP, TEGCR ####[address] [address] Platelets Auto #/vol (Bld) 216 10*3/uL Normal 138-453 [facility] Comment on above: Performed By: #### E RTPF, CONNER, LIP, LIVP, TEGCR ####[address] [address] WBC Auto #/vol (Bld) 20.0 10*3/uL High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 Range:Vitamin D status Range Deficiency <20 ng/mL Mild Deficiency 20-30 ng/mL Sufficiency 30-100 ng/mL Toxicity >100 ng/mL Performed By: #### O HP, IOCAL ####[employer] [place] [address] XR CHEST PORTABLEon 01-24-20 18 XR CHEST PORTABLE EXAMINATION:SINGLE X RAY VIEW OF THE CHEST01/23/2018 8:39 amCOMPARISON:Chest x-ray from 01/22/2018HISTORY:ORDERING SYSTEM PROVIDED HISTORY: f/u cxr for Pleural effTECHNOLOGIST PROVIDED HISTORY:f/u cxr for Pleural effFINDINGS:Enteric tube extends below the diaphragm, distal tip not included. There aresimilar hazy bibasilar densities causing obscuration of both hemidiaphragmsand blunting of the costophrenic angles. There is similar enlargement ofcardiac silhouette. There is similar prominence and indistinctness of thepulmonary vascular/interstitial markings throughout the lungs. Supinetechnique limits evaluation for pneumothorax, but given this, no largepneumothorax identified. Visualized osseous structures appear intact andgrossly unremarkable, given the non dedicated imaging.IMPRESSION: 1. Enteric tube in expected position.2. Similar appearance of bilateral pleural effusions and associated airspacedisease, may reflect atelectasis and/or pneumonia.3. Similar findings most suggestive of mild pulmonary vascular congestionsuperimposed on a background of emphysematous and/or chronic interstitialchange.Interprete d by:NADEGE Wrightigned by:Cassie Guzmán MD01/23/18inal result Normal [facility] Arterial Blood Gaseson 01-22 Josue Test INFORMATION NOT PROVIDED Normal [facility] Comment on above: Performed By: #### O HP, IOCAL ####[facility] Izguzkkxpnyz2745 [place] [address] Body Temp. 37.0 Normal [facility] Comment on above: Performed By: #### O HP, IOCAL ####[employer] Cxkeppajakrq8071 [place] [address] Carboxy Hgb 2.7 % Normal 0-5 [facility] Comment on above: Result Comment: Refe rence Range:Non-Smokers 0-2%Average Smoker 2-4%Heavy Smoker <10% Performed By: #### O HP, IOCAL ####[facility] Ncocmcslphri4883 [place] [address] FIO2 60% Normal [facility] Comment on above: Performed By: #### O HP, IOCAL ####[facility] Memorialernie Fpswhfknoymy8372 [place] [address] HCO3 molar conc (Bld) 28.2 mmol/L High 22-27 [facility] Comment on above: Performed By: #### O HP, IOCAL ####[facility] [address] [place] [address] Oxygen ppres (BldA) 81.3 mm[Hg] Normal 75-95 [facility] Comment on above: Performed By: #### O HP, IOCAL ####[facility] Mroqrvoydweq1217 [place] [address] Oxygen saturation in Blood 95.9 % Normal 94-100 [facility] Comment on above: Performed By: #### O HP, IOCAL ####[facility] [address] [place] [address] pCO2 41.5 mmHg Normal 32-45 [facility] Comment on above: Performed By: #### O HP, IOCAL ####[facility] Wmtraatldsqs0097 [place] [address] pH (Bld) 7.447 [pH] Normal 7.350-7.45 0 [facility] Comment on above: Performed By: #### O HP, IOCAL ####[facility]ernie Siacutdzbeoy0104 [place] [address] Positive Base Excess 4.2 mmol/L High 0.0-2.0 [facility] Comment on above: Performed By: #### O HP, IOCAL ####[facility] Eqcxjllfxvau7337 [place] [address] Methemoglobin NOT REPORTED Normal 0.0-1.5 [facility] Comment on above: Performed By: #### O HP, IOCAL ####[facility] Rojas[address] [place] [address] Mode NOT REPORTED Normal [facility] Comment on above: Performed By: #### O HP, IOCAL ####[facility] [address] [place] [address] Negative Base Excess NOT REPORTED Normal 0.0-2.0 [facility] Comment on above: Performed By: #### O HP, IOCAL ####[facility] [address] [place] [address] Notification Time NOT REPORTED Normal [facility] Comment on above: Performed By: #### O HP, IOCAL ####[address] [address] Notification: NOT REPORTED Normal [facility] Comment on above: Performed By: #### O HP, IOCAL ####[address] [address] O2 Device/Flow/% NOT REPORTED Normal [facility] Comment on above: Performed By: #### O HP, IOCAL ####[address] [address] Oxyhemoglobin NOT REPORTED Normal 95.0-98.0 [facility] Comment on above: Performed By: #### O HP, IOCAL ####[address] [address] pCO2 Adj'd for Temp NOT REPORTED Normal 32-45 [facility] Comment on above: Performed By: #### O HP, IOCAL ####[address] [address] PEEP/CPAP NOT REPORTED Normal [facility] Comment on above: Performed By: #### O HP, IOCAL ####[address] [address] pH Adjst'd for Temp. NOT REPORTED Normal 7.350-7 .45 0 [facility] Comment on above: Performed By: #### O HP, IOCAL ####[facility] Ptvirgkkzcxl6252 [place] [address] pO2 Adjst'd for Temp NOT REPORTED Normal 75-95 [facility] Comment on above: Performed By: #### O HP, IOCAL ####[facility] Lnkehjsxooaq5481 [place] [address] PSV NOT REPORTED Normal [facility] Comment on above: Performed By: #### O HP, IOCAL ####[facility] Idgtyqufpgod[address] [place] [address] Pt. Position NOT REPORTED Normal [facility] Comment on above: Performed By: #### O HP, IOCAL ####[facility] Qcyxxbuycgcq89[address] [place] [address] Set Rate NOT REPORTED Normal [facility] Comment on above: Performed By: #### O HP, IOCAL ####[facility] [address] [place] [address] Site Drawn NOT REPORTED Normal [facility] Comment on above: Performed By: #### O HP, IOCAL ####[facility] Compdozooljd4846 [place] [address] Text for Respiratory NOT REPORTED Normal [facility] Comment on above: Performed By: #### O HP, IOCAL ####[facility] Mrsrvxrfdrre0701 [place] [address] Total Hb NOT REPORTED Normal 12.0-16.0 [facility] Comment on above: Performed By: #### O HP, IOCAL ####[facility]y Azzeftbgqhcf6844 [place] [address] Total Rate NOT REPORTED Normal [facility] Comment on above: Performed By: #### O HP, IOCAL ####[facility] Vjdbgemstumi7932 [place] [address] VT NOT REPORTED Normal [facility] Comment on above: Performed By: #### O HP, IOCAL ####[facility] Xhgjxicmugkr5656 [place] [address] Basic Metab w/rfx MGon 01-22 (cont.) Normal [facility] Comment on above: Result Comment: Aver age GFR for 50-59 years old: 93 mL/min/1.73sq mChronic Kidney Disease: <60 mL/min/1.73sq mKidney failure: <15 mL/min/1.73sq meGFR calculated using average adult body mass. Additional eGFR calculator available at:http://www.[employer]/multiple_crcl_2012.htm Performed By: #### O HP, IOCAL ####[facility] Zgnwrkfbgjqp4750 [place] [address] Anion gap 3 molar conc 9 mmol/L Normal 9-17 [facility] Comment on above: Performed By: #### O HP, IOCAL ####[facility] Puinpamltipd3945 [place] [address] Calcium mass conc 8.0 mg/dL Low 8.6-10.4 [facility] Comment on above: Performed By: #### O HP, IOCAL ####[facility] Mpjaxhwuyxvq0899 [place] [address] Chloride molar conc 99 mmol/L Normal 98-107 [facility] Comment on above: Performed By: #### O HP, IOCAL ####[facility] Rnteubcphetd1479 [place] [address] CO2 molar conc 28 mmol/L Normal 20-31 [facility] Comment on above: Performed By: #### O HP, IOCAL ####[facility] Nltuthqkmhvu0666 [place] [address] Creatinine mass conc 0.56 mg/dL Low 0.70-1.20 [facility] Comment on above: Performed By: #### O HP, IOCAL ####[facility] Raedzsyjrwyo4188 [place] [address] GFR, Amer >60 Normal >60 [facility] Comment on above: Performed By: #### O HP, IOCAL ####[facility] Btbxyjfvpdxm2348 [place] [address] GFR,non Amer >60 Normal >60 [facility] Comment on above: Performed By: #### O HP, IOCAL ####[facility]y Gmqzsgrchoep5855 [place] [address] Glucose mass conc 122 mg/dL High 70-99 [facility] Comment on above: Performed By: #### O HP, IOCAL ####[facility] Vtmkpuvfimzr3857 [place] [address] Potassium molar conc 3.8 mmol/L Normal 3.7-5.3 [facility] Comment on above: Performed By: #### O HP, IOCAL ####[facility]y Xduckoyzbmao6451 [place] [address] Sodium molar conc 136 mmol/L Normal 135-144 [facility] Comment on above: Performed By: #### O HP, IOCAL ####[facility]y Vbihfanagbpa5698 [place] [address] Urea nitrogen mass conc 9 mg/dL Normal 6-20 [facility] Comment on above: Performed By: #### O HP, IOCAL ####[facility]y Unrrblaaojre9007 [place] [address] BUN/CRE Ratio NOT REPORTED Normal 9-20 [facility] Comment on above: Performed By: #### O HP, IOCAL ####[facility] Wigqrmxienwr7836 [place] [address] Staging: NOT REPORTED Normal [facility] Comment on above: Performed By: #### O HP, IOCAL ####[facility]a Vmoysumkzeqj7873 [place] [address] Basic Metabolic Profon 01-22 (cont.) Normal [facility] Comment on above: Result Comment: Aver age GFR for 50-59 years old: 93 mL/min/1.73sq mChronic Kidney Disease: <60 mL/min/1.73sq mKidney failure: <15 mL/min/1.73sq meGFR calculated using average adult body mass. Additional eGFR calculator available at:http://www.[employer]/multiple_crcl_2012.htm Performed By: #### O HP, IOCAL ####[facility] Bxzatfdraelz9209 [place] [address] Anion gap 3 molar conc 11 mmol/L Normal 9-17 [facility] Comment on above: Performed By: #### O HP, IOCAL ####[facility] Xddegskflilm4007 [place] [address] Calcium mass conc 8.1 mg/dL Low 8.6-10.4 [facility] Comment on above: Performed By: #### O HP, IOCAL ####[facility] Npafiiyvnenu3556 [place] [address] Chloride molar conc 99 mmol/L Normal 98-107 [facility] Comment on above: Performed By: #### O HP, IOCAL ####[facility] Fbpdbfnrfann3966 [place] [address] CO2 molar conc 27 mmol/L Normal 20-31 [facility] Comment on above: Performed By: #### O HP, IOCAL ####[facility] Btihrdfufpcs3106 [place] [address] Creatinine mass conc 0.58 mg/dL Low 0.70-1.20 [facility] Comment on above: Performed By: #### O HP, IOCAL ####[facility] Gjwfoylcnriu8457 [place] [address] GFR, Amer >60 Normal >60 [facility] Comment on above: Performed By: #### O HP, IOCAL ####[facility] Akbqbcirvgmy1807 [place] [address] GFR,non Amer >60 Normal >60 [facility] Comment on above: Performed By: #### O HP, IOCAL ####[facility] Dccdxmufmmxb3737 [place] [address] Glucose mass conc 87 mg/dL Normal 70-99 [facility] Comment on above: Performed By: #### O HP, IOCAL ####[facility] Kqjahupozmmv3387 [place] [address] Potassium molar conc 3.6 mmol/L Low 3.7-5.3 [facility] Comment on above: Performed By: #### O HP, IOCAL ####[facility] Mgvkffvhkqil4422 [place] [address] Sodium molar conc 137 mmol/L Normal 135-144 [facility] Comment on above: Performed By: #### O HP, IOCAL ####[facility] Lwxcwepepnog8333 [place] [address] Urea nitrogen mass conc 6 mg/dL Normal 6-20 [facility] Comment on above: Performed By: #### O HP, IOCAL ####[facility] Iczjiauinkfg0049 [place] [address] Brain Natri. Peptideon 01-22 Natriuretic peptide B mass conc (Bld) Normal [facility] Comment on above: Result Comment: Pro- BNP Reference Range:Rule Out: <300Grey Zone: Age <50 300-450 Age 50-75 300-900 Age >75 300-1800Usually represents mild to moderate HF but other cardiopulmonary causes cannot be ruled out.Rule In: Age <50 >450 Age 50-75 >900 Age >75 >1800 Performed By: #### O HP, IOCAL ####[facility] Oheyjlnltxtm4832 [place] [address] Natriuretic peptide B mass conc (Bld) 88708 pg/mL High <300 [facility] Comment on above: Result Comment: Pro- BNP results cannot be compared to BNP results. Performed By: #### O HP, IOCAL ####[facility] [address] [place] [address] CBCon 01-22-2018 Erythrocyte distribution width Auto Ratio (RBC) 15.8 % High 11.8-14.4 [facility] Comment on above: Performed By: #### O HP, IOCAL ####[address] [address] Hematocrit Auto Volume Fraction (Bld) 32.6 % Low 40.7-50.3 [facility] Comment on above: Performed By: #### O HP, IOCAL ####[facility] [address]bzodmufx[address] [place] [address] Hemoglobin mass conc (Bld) 10.7 g/dL Low 13.0-17.0 [facility] Comment on above: Performed By: #### O HP, IOCAL ####[facility] Tvnxjdtcefen[address] [place] [address] MCH Auto Entitic mass (RBC) 31.4 pg Normal 25.2-33.5 [facility] Comment on above: Performed By: #### O HP, IOCAL ####[facility] Lrgmylzpkykh[address] [place] [address] MCHC Auto mass conc (RBC) 32.8 g/dL Normal 28.4-34.8 [facility] Comment on above: Performed By: #### O HP, IOCAL ####[facility] [address]vuuexvbubee[address] [place] [address] MCV Auto Entitic volume (RBC) 95.6 fL Normal 82.6-102.9 [facility] Comment on above: Performed By: #### O HP, IOCAL ####[address] [address] NRBC Automated 0.0 per 100 WBC Normal 0.0 [facility] Comment on above: Performed By: #### O HP, IOCAL ####[address] [address] Platelets Auto #/vol (Bld) See Reflexed IPF Result Normal 138-453 [facility] Comment on above: Performed By: #### O HP, IOCAL ####[address] [address] RBC Auto #/vol (Bld) 3.41 10*6/uL Low 4.21-5.77 [facility] Comment on above: Performed By: #### O HP, IOCAL ####[address] [address] WBC Auto #/vol (Bld) 28.0 10*3/uL High 3.5-11.3 [facility] Comment on above: Performed By: #### O HP, IOCAL ####[address] [address] CBC with Diffon 01-22-2018 Abs. Basophil 0.00 k/uL Normal 0.0-0.2 [facility] Comment on above: Performed By: #### O HP, IOCAL ####[address] [address] Abs.Imm.Granulocyte 0.29 k/uL Normal 0.00-0.30 [facility] Comment on above: Performed By: #### O HP, IOCAL ####[facility] [address] [place] [address] Abs.Neutrophil (Seg) 25.64 k/uL High 1.8-7.7 [facility] Comment on above: Performed By: #### O HP, IOCAL ####[address] [address] Basophils/100 WBC Auto (Bld) 0 % Normal 0-2 [facility] Comment on above: Performed By: #### O HP, IOCAL ####[address] [address] Eosinophils Auto #/vol (Bld) 0.00 10*3/uL Normal 0.0-0.4 [facility] Comment on above: Performed By: #### O HP, IOCAL ####[address] [address] Eosinophils/100 WBC Auto (Bld) 0 % Low 1-4 [facility] Comment on above: Performed By: #### O HP, IOCAL ####[address] [address] Immature granulocytes #/vol (Bld) 1 % High 0 [facility] Comment on above: Performed By: #### O HP, IOCAL ####[address] [address] Lymphocytes Auto #/vol (Bld) 2.00 10*3/uL Normal 1.0-4.8 [facility] Comment on above: Performed By: #### O HP, IOCAL ####[address] [address] Lymphocytes/100 WBC Auto (Bld) 7 % Low 24-44 [facility] Comment on above: Performed By: #### O HP, IOCAL ####[address] [address] Monocytes Auto #/vol (Bld) 0.57 10*3/uL Normal 0.1-0.8 [facility] Comment on above: Performed By: #### O HP, IOCAL ####[address] [address] Monocytes/100 WBC Auto (Bld) 2 % Normal 1-7 [facility] Comment on above: Performed By: #### O HP, IOCAL ####[address] [address] Morphology Interp Eduard (Bld) INCREASED BANDS PRESENT Normal [facility] Comment on above: Result Comment: ANIS OCYTOSIS PRESENT Performed By: #### O HP, IOCAL ####[address] [address] Neutrophil (Seg) 90 % High 36-66 [facility] Comment on above: Performed By: #### O HP, IOCAL ####[address] [address] NRBC Automated 0.0 per 100 WBC Normal 0.0 [facility] Comment on above: Performed By: #### O HP, IOCAL ####[address] [address] WBC Auto #/vol (Bld) 28.5 10*3/uL High 3.5-11.3 [facility] Comment on above: Performed By: #### O HP, IOCAL ####[address] [address] Erythrocyte distribution width Auto Ratio (RBC) 15.6 % High 11.8-14.4 [facility] Comment on above: Performed By: #### O HP, IOCAL ####[address] [address] Hematocrit Auto Volume Fraction (Bld) 31.4 % Low 40.7-50.3 [facility] Comment on above: Performed By: #### O HP, IOCAL ####[address] [address] Hemoglobin mass conc (Bld) 10.3 g/dL Low 13.0-17.0 [facility] Comment on above: Performed By: #### O HP, IOCAL ####[address] [address] MCH Auto Entitic mass (RBC) 30.9 pg Normal 25.2-33.5 [facility] Comment on above: Performed By: #### O HP, IOCAL ####[address] [address] MCHC Auto mass conc (RBC) 32.8 g/dL Normal 28.4-34.8 [facility] Comment on above: Performed By: #### O HP, IOCAL ####[address] [address] MCV Auto Entitic volume (RBC) 94.3 fL Normal 82.6-102.9 [facility] Comment on above: Performed By: #### O HP, IOCAL ####[address] [address] Platelets Auto #/vol (Bld) See Reflexed IPF Result Normal 138-453 [facility] Comment on above: Performed By: #### O HP, IOCAL ####[address] [address] RBC Auto #/vol (Bld) 3.33 10*6/uL Low 4.21-5.77 [facility] Comment on above: Performed By: #### O HP, IOCAL ####[address] [address] Auto Diff Performed NOT REPORTED Normal [facility] Comment on above: Performed By: #### O HP, IOCAL ####[facility] [address] [address] Platelet mean volume Auto Entitic volume (Bld) NOT REPORTED Normal 8.1-13.5 [facility] Comment on above: Performed By: #### O HP, IOCAL ####[facility] [address] [place] [address] Platelets Auto #/vol (Bld) NOT REPORTED Normal [facility] Comment on above: Performed By: #### O HP, IOCAL ####[address] [address] RBC morphology finding Nom (Bld) NOT REPORTED Normal [facility] Comment on above: Performed By: #### O HP, IOCAL ####[address] [address] WBC Morphology NOT REPORTED Normal [facility] Comment on above: Performed By: #### O HP, IOCAL ####[address] [address] MRI LUMBAR SPINE WO CONTRAST on 01-22-2018 MRI LUMBAR SPINE WO CONTRAST EXAMINATION:MRI OF THE LUMBAR SPINE WITHOUT CONTRAST, 01/20/2018 4:12 amTECHNIQUE:Multiplanar multisequence MRI of the lumbar spine was performed without theadministration of intravenous contrast.COMPARISON:NoneHISTO RY:ORDERING SYSTEM PROVIDED HISTORY: L1 burst fractureTECHNOLOGIST PROVIDED HISTORY:These include T11 and T12 with possible to assess ligamentsFINDINGS:BONES/ALIGN MENT: L1 vertebral body compression deformity with 20% anteriorheight loss. Marrow T2 hyperintensity involves the L1 vertebral body. [id number] process acute fracture. Remaining vertebrae maintain normal heightand marrow signal. There is straightening of the lumbar lordosis.SPINAL CORD: The conus terminates normally.SOFT TISSUES: No paraspinal mass identified.L1-L2: There is no significant disc herniation, spinal canal stenosis orneural foraminal narrowing.L2-L3: There is no significant disc herniation, spinal canal stenosis orneural foraminal narrowing.L3-L4: There is no significant disc herniation, spinal canal stenosis orneural foraminal narrowing.L4-L5: Circumferential disc bulge with central annular fissure, ligamentumflavum thickening and facet arthrosis with mild central spinal canalstenosis. The neural foramina are patent.L5-S1: Small annular bulge with severe bilateral facet arthrosis, mildcentral spinal canal stenosis and [id number] bilateral foraminalstenosis.IMPRESSION: L1 acute compression fracture, 20% anterior height loss. No bonyretropulsion or acute neural impingement.T12 acute spinous process fracture.Interpreted by:NADEGE Romeroigned by:Ramakrishna Santana MD01/22/18 Recipients:Rubina Arreaga DO - In Basket (authorizing provider)Final result Normal [facility] Magnesiumon 01-22-2018 Magnesium mass conc 2.0 mg/dL Normal 1.6-2.6 [facility] Comment on above: Performed By: #### O HP, IOCAL ####[facility] [address] [place] [address] PLT, Immature Fract.on 01-22 Platelet, Fluoresc. 128 k/uL Low 138-453 [facility] Comment on above: Result Comment: ORDE RED BY LAB Performed By: #### O HP, IOCAL ####[facility] [address] [place] [address] PLT, Immature Fract. 5.8 % Normal 1.1-10.3 [facility] Comment on above: Result Comment: ORDE RED BY LAB Performed By: #### O HP, IOCAL ####[facility] [address] [place] [address] Platelet, Fluoresc. 132 k/uL Low 138-453 [facility] Comment on above: Performed By: #### O HP, IOCAL ####[facility] [address]vtqibb3164 [place] [address] PLT, Immature Fract. 6.2 % Normal 1.1-10.3 [facility] Comment on above: Performed By: #### O HP, IOCAL ####[facility] [address] [place] [address] Phosphorus, Inorg.on 018 Phosphorus, Inorg. 2.2 mg/dL Low 2.5-4.5 [facility] Comment on above: Performed By: #### O HP, IOCAL ####[facility] [address] [place] [address] Phosphorus, Inorg. 2.5 mg/dL Normal 2.5-4.5 [facility] Comment on above: Result Comment: SOTO D ON Performed By: #### O HP, IOCAL ####[facility] [address]ctcruw50[address] [place] [address] XR CHEST PORTABLEon 01-23-20 18 XR CHEST PORTABLE EXAMINATION:SINGLE X RAY VIEW OF THE CHEST01/22/2018 5:56 amCOMPARISON:Chest x-ray 01/21/2018. CT guided thoracentesis 01/21/2018HISTORY:ORDERING SYSTEM PROVIDED HISTORY: Follow up Thoracentesis, rightTECHNOLOGIST PROVIDED HISTORY:Follow up ThoracentesisFINDINGS:Enteric tube courses below the diaphragm, distal tip not included. Numerousadditional monitoring leads overlie the chest.The lung bases are not completely included on the exam. No large rightpleural effusion identified. There is hazy density in the left lung base.Heart size appears within normal limits, given technique. There is similarprominence of the pulmonary vascular/interstitial markings. Supine techniquelimits evaluation for pneumothorax, but given this, no pneumothorax isidentified. Visualized osseous structures appear moderately demineralized,but grossly intact, given the non dedicated imaging.IMPRESSION: 1. Limited evaluation for pneumothorax given supine technique. No definitepneumothorax appreciated.2. Similar moderate left pleural effusion and likely associated atelectasis.3. Similar findings suggesting mild pulmonary vascular congestionsuperimposed on a background of emphysematous and chronic interstitialchange. Continued imaging follow-up is recommended.Interpreted by:NADEGE Wrightigned by:Cassie Guzmán MD01/22/18inal result Normal [facility] Basic Metabolic Profon 01-21 (cont.) Normal [facility] Comment on above: Result Comment: Aver age GFR for 50-59 years old: 93 mL/min/1.73sq mChronic Kidney Disease: <60 mL/min/1.73sq mKidney failure: <15 mL/min/1.73sq meGFR calculated using average adult body mass. Additional eGFR calculator available at:http://www.[employer]/multiple_crcl_2011.htm Performed By: #### B MP, BNP ####[address] [place] [address] Performed By: #### E RTPF, CONNER, LIP, LIVP, TEGCR ####[facility] [address] [place] [address] Anion gap 3 molar conc 9 mmol/L Normal 9-17 [facility] Comment on above: Performed By: #### B MP, BNP ####[facility] [address] [place] [address] Calcium mass conc 8.1 mg/dL Low 8.6-10.4 [facility] Comment on above: Performed By: #### B MP, BNP ####[facility] [address] [place] [address] Performed By: #### E RTPF, CONNER, LIP, LIVP, TEGCR ####[facility] [address] [place] [address] Chloride molar conc 99 mmol/L Normal 98-107 [facility] Comment on above: Performed By: #### B MP, BNP ####[facility] [address] [place] [address] Performed By: #### E RTPF, CONNER, LIP, LIVP, TEGCR ####[facility] [address] [place] [address] CO2 molar conc 27 mmol/L Normal 20-31 [facility] Comment on above: Performed By: #### B MP, BNP ####[facility] [address] [place] [address] Creatinine mass conc 0.54 mg/dL Low 0.70-1.20 [facility] Comment on above: Performed By: #### B MP, BNP ####[facility] [address] [place] [address] GFR, Amer >60 Normal >60 [facility] Comment on above: Performed By: #### B MP, BNP ####[facility] [place] [address] Performed By: #### E RTPF, CONNER, LIP, LIVP, TEGCR ####[facility] [address] [place] [address] GFR,non Amer >60 Normal >60 [facility] Comment on above: Performed By: #### B MP, BNP ####[facility] [address] [place] [address] Performed By: #### E RTPF, CONNER, LIP, LIVP, TEGCR ####[facility] [address] [place] [address] Glucose mass conc 106 mg/dL High 70-99 [facility] Comment on above: Performed By: #### B MP, BNP ####[facility] [address] [place] [address] Potassium molar conc 4.4 mmol/L Normal 3.7-5.3 [facility] Comment on above: Performed By: #### B MP, BNP ####[facility] [place] [address] Sodium molar conc 135 mmol/L Normal 135-144 [facility] Comment on above: Performed By: #### B MP, BNP ####[facility] [place] [address] Urea nitrogen mass conc 7 mg/dL Normal 6-20 [facility] Comment on above: Performed By: #### B MP, BNP ####[address] [place] [address] Performed By: #### E RTPF, CONNER, LIP, LIVP, TEGCR ####[address] [place] [address] Anion gap 3 molar conc 10 mmol/L Normal 9-17 [facility] Comment on above: Performed By: #### E RTPF, CONNER, LIP, LIVP, TEGCR ####[facility] [place] [address] CO2 molar conc 28 mmol/L Normal 20-31 [facility] Comment on above: Performed By: #### E RTPF, CONNER, LIP, LIVP, TEGCR ####[facility] [place] [address] Creatinine mass conc 0.56 mg/dL Low 0.70-1.20 [facility] Comment on above: Performed By: #### E RTPF, CONNER, LIP, LIVP, TEGCR ####[facility] [place] [address] Glucose mass conc 97 mg/dL Normal 70-99 [facility] Comment on above: Performed By: #### E RTPF, CONNER, LIP, LIVP, TEGCR ####[facility] [place] [address] Potassium molar conc 4.7 mmol/L Normal 3.7-5.3 [facility] Comment on above: Performed By: #### E RTPF, CONNER, LIP, LIVP, TEGCR ####[address] [place] [address] Sodium molar conc 137 mmol/L Normal 135-144 [facility] Comment on above: Performed By: #### E RTPF, CONNER, LIP, LIVP, TEGCR ####[address] [place] [address] BUN/CRE Ratio NOT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 Trauma Profileon 01-19-2018 Urea nitrogen mass conc 6 mg/dL Normal 6-20 [facility] Comment on above: Result Comment: QA F LAGS AND/OR RANGES MODIFIED BY DEMOGRAPHIC UPDATE ON 01/19 AT 1953 Performed By: #### E RTPF, CONNER, LIP, LIVP, TEGCR ####[address] [place] [address] Anion gap 3 molar conc 13 mmol/L Normal 9-17 [facility] Comment on above: Performed By: #### E RTPF, CONNER, LIP, LIVP, TEGCR ####[address] [address] Chloride molar conc 101 mmol/L Normal 98-107 [facility] Comment on above: Performed By: #### E RTPF, CONNER, LIP, LIVP, TEGCR ####[address] [address] CO2 molar conc 17 mmol/L Low 20-31 [facility] Comment on above: Performed By: #### E RTPF, CONNER, LIP, LIVP, TEGCR ####[address] [place] [address] Creatinine mass conc 0.55 mg/dL Low 0.70-1.20 [facility] Comment on above: Performed By: #### E RTPF, CONNER, LIP, LIVP, TEGCR ####[facility] [facility] [id number] [place] [address] Ethanol mass conc 277 mg/dL High <10 [facility] Comment on above: Performed By: #### E RTPF, CONNER, LIP, LIVP, TEGCR ####[address] [place] [address] Ethanol percent 0.277 % Normal [facility] Comment on above: Performed By: #### E RTPF, CONNER, LIP, LIVP, TEGCR ####[facility] [place] [address] Glucose mass conc 95 mg/dL Normal 70-99 [facility] Comment on above: Performed By: #### E RTPF, CONNER, LIP, LIVP, TEGCR ####[address] [address] Potassium molar conc 4.7 mmol/L Normal 3.7-5.3 [facility] Comment on above: Performed By: #### E RTPF, CONNER, LIP, LIVP, TEGCR ####[address] [address] Sodium molar conc 131 mmol/L Low 135-144 [facility] Comment on above: Performed By: #### E RTPF, CONNER, LIP, LIVP, TEGCR ####[address] [address] aPTT Coag time (Bld) 26.2 s Normal 20.5-30.5 [facility] Comment on above: Performed By: #### E RTPF, CONNER, LIP, LIVP, TEGCR ####[address] [address] INR Coag RelTime (PPP) 1.1 {INR} Normal [facility] Comment on above: Result Comment: Ther apeutic Range: Moderate Anticoagulant Intensity: INR = 2.0-3.0 High Anticoagulant Intensity: INR = 2.5-3.5 Performed By: #### E RTPF, CONNER, LIP, LIVP, TEGCR ####[address] [address] Prothrombin time (PT) Coag time (PPP) 11.9 s Normal 9.0-12.0 [facility] Comment on above: Performed By: #### E RTPF, CONNER, LIP, LIVP, TEGCR ####[address] [address] Erythrocyte distribution width Auto Ratio (RBC) 14.3 % Normal 11.8-14.4 [facility] Comment on above: Performed By: #### E RTPF, CONNER, LIP, LIVP, TEGCR ####[address] [address] Hematocrit Auto Volume Fraction (Bld) 42.9 % Normal 40.7-50.3 [facility] Comment on above: Performed By: #### E RTPF, CONNER, LIP, LIVP, TEGCR ####[address] [address] Hemoglobin mass conc (Bld) 14.0 g/dL Normal 13.0-17.0 [facility] Comment on above: Performed By: #### E RTPF, CONNER, LIP, LIVP, TEGCR ####[address] [address] MCH Auto Entitic mass (RBC) 32.0 pg Normal 25.2-33.5 [facility] Comment on above: Performed By: #### E RTPF, CONNER, LIP, LIVP, TEGCR ####[address] [address] MCHC Auto mass conc (RBC) 32.6 g/dL Normal 28.4-34.8 [facility] Comment on above: Performed By: #### E RTPF, CONNER, LIP, LIVP, TEGCR ####[address] [address] MCV Auto Entitic volume (RBC) 97.9 fL Normal 82.6-102.9 [facility] Comment on above: Performed By: #### E RTPF, CONNER, LIP, LIVP, TEGCR ####[address] [address] NRBC Automated 0.0 per 100 WBC Normal 0.0 [facility] Comment on above: Performed By: #### E RTPF, CONNER, LIP, LIVP, TEGCR ####[address] [address] Platelet mean volume Auto Entitic volume (Bld) 9.4 fL Normal 8.1-13.5 [facility] Comment on above: Performed By: #### E RTPF, CONNER, LIP, LIVP, TEGCR ####[address] [address] Platelets Auto #/vol (Bld) 193 10*3/uL Normal 138-453 [facility] Comment on above: Performed By: #### E RTPF, CONNER, LIP, LIVP, TEGCR ####[address] [address] RBC Auto #/vol (Bld) 4.38 10*6/uL Normal 4.21-5.77 [facility] Comment on above: Performed By: #### E RTPF, CONNER, LIP, LIVP, TEGCR ####[address] [address] WBC Auto #/vol (Bld) 3.6 10*3/uL Normal 3.5-11.3 [facility] Comment on above: Performed By: #### E RTPF, CONNER, LIP, LIVP, TEGCR ####[address] [address] Body Temp. 37.0 Normal [facility] Comment on above: Performed By: #### E RTPF, CONNER, LIP, LIVP, TEGCR ####[address] [address] Carboxy Hgb 5.7 % High 0-5 [facility] Comment on above: Result Comment: Refe rence Range:Non-Smokers 0-2%Average Smoker 2-4%Heavy Smoker <10% Performed By: #### E RTPF, CONNER, LIP, LIVP, TEGCR ####[address] [address] FIO2 INFORMATION NOT PROVIDED Normal [facility] Comment on above: Performed By: #### E RTPF, CONNER, LIP, LIVP, TEGCR ####[address] [address] HCO3 molar conc (Bld) 18.9 mmol/L Low 24-30 [facility] Comment on above: Performed By: #### E RTPF, CONNER, LIP, LIVP, TEGCR ####[address] [address] Negative Base Excess 10.2 mmol/L High 0.0-2.0 [facility] Comment on above: Performed By: #### E RTPF, CONNER, LIP, LIVP, TEGCR ####[address] [address] Oxygen ppres (BldA) 40.2 mm[Hg] Normal 30-50 [facility] Comment on above: Performed By: #### E RTPF, CONNER, LIP, LIVP, TEGCR ####[address] [address] Oxygen saturation in Blood 58.1 % Low 60.0-85.0 [facility] Comment on above: Performed By: #### E RTPF, CONNER, LIP, LIVP, TEGCR ####[address] [place] [address] pCO2 55.7 High 39-55 [facility] Comment on above: Performed By: #### E RTPF, CONNER, LIP, LIVP, TEGCR ####[address] [address] pH (Bld) 7.157 [pH] Critically low 7.320-7.42 0 [facility] Comment on above: Performed By: #### E RTPF, CONNER, LIP, LIVP, TEGCR ####[address] [address] Blood Bank BILL FOR SERVICES PERFORMED Normal [facility] Comment on above: Performed By: #### E RTPF, CONNER, LIP, LIVP, TEGCR ####[address] [address] (cont.) NOT REPORTED Normal [facility] Comment on above: Performed By: #### E RTPF, CONNER, LIP, LIVP, TEGCR ####[address] [address] Josue Test NOT REPORTED Normal [facility] Comment on above: Performed By: #### E RTPF, CONNER, LIP, LIVP, TEGCR ####[address] [address] GFR, Amer NOT REPORTED Normal >60 [facility] Comment on above: Performed By: #### E RTPF, CONNER, LIP, LIVP, TEGCR ####[address] [address] GFR,non Amer NOT REPORTED Normal >60 [facility] Comment on above: Performed By: #### E RTPF, CONNER, LIP, LIVP, TEGCR ####[address] [address] Methemoglobin NOT REPORTED Normal 0.0-1.5 [facility] Comment on above: Performed By: #### E RTPF, CONNER, LIP, LIVP, TEGCR ####[address] [address] Mode NOT REPORTED Normal [facility] Comment on above: Performed By: #### E RTPF, CONNER, LIP, LIVP, TEGCR ####[address] [address] Notification Time NOT REPORTED Normal [facility] Comment on above: Performed By: #### E RTPF, CONNER, LIP, LIVP, TEGCR ####[address] [address] Notification: NOT REPORTED Normal [facility] Comment on above: Performed By: #### E RTPF, CONNER, LIP, LIVP, TEGCR ####[address] [address] O2 Device/Flow/% NOT REPORTED Normal [facility] Comment on above: Performed By: #### E RTPF, CONNER, LIP, LIVP, TEGCR ####[address] [address] Oxyhemoglobin NOT REPORTED Normal 95.0-98.0 [facility] Comment on above: Performed By: #### E RTPF, CONNER, LIP, LIVP, TEGCR ####[address] [address] Pco2 Adj'd for Temp. NOT REPORTED Normal 39-55 [facility] Comment on above: Performed By: #### E RTPF, CONNER, LIP, LIVP, TEGCR ####[address] [address] PEEP/CPAP NOT REPORTED Normal [facility] Comment on above: Performed By: #### E RTPF, CONNER, LIP, LIVP, TEGCR ####[address] [address] pH Adjst'd for Temp. NOT REPORTED Normal 7.320-7 .42 0 [facility] Comment on above: Performed By: #### E RTPF, CONNER, LIP, LIVP, TEGCR ####[address] [address] pO2 Adj'd for Temp. NOT REPORTED Normal 30-50 [facility] Comment on above: Performed By: #### E RTPF, CONNER, LIP, LIVP, TEGCR ####[address] [address] Positive Base Excess NOT REPORTED Normal 0.0-2.0 [facility] Comment on above: Performed By: #### E RTPF, CONNER, LIP, LIVP, TEGCR ####[address] [address] PSV NOT REPORTED Normal [facility] Comment on above: Performed By: #### E RTPF, CONNER, LIP, LIVP, TEGCR ####[address] [address] Pt. Position NOT REPORTED Normal [facility] Comment on above: Performed By: #### E RTPF, CONNER, LIP, LIVP, TEGCR ####[address] [address] Set Rate NOT REPORTED Normal [facility] Comment on above: Performed By: #### E RTPF, CONNER, LIP, LIVP, TEGCR ####[address] [address] Site Drawn NOT REPORTED Normal [facility] Comment on above: Performed By: #### E RTPF, CONNER, LIP, LIVP, TEGCR ####[address] [address] Staging: NOT REPORTED Normal [facility] Comment on above: Performed By: #### E RTPF, CONNER, LIP, LIVP, TEGCR ####[address] [address] Text for Respiratory NOT REPORTED Normal [facility] Comment on above: Performed By: #### E RTPF, CONNER, LIP, LIVP, TEGCR ####[address] [address] Total Hb NOT REPORTED Normal 12.0-16.0 [facility] Comment on above: Performed By: #### E RTPF, CONNER, LIP, LIVP, TEGCR ####[address] [place] [address] Total Rate NOT REPORTED Normal [facility] Comment on above: Performed By: #### E RTPF, CONNER, LIP, LIVP, TEGCR ####[address] [address] [place] NOT REPORTED Normal [facility] Comment on above: Performed By: #### E RTPF, CONNER, LIP, LIVP, TEGCR ####[address] [address] Type + Screenon 01-19-2018 Type + Screen Sample Expiration Arm Band Number [id number] ABO/Rh(D) A POSITIVE Antibody Screen NEGATIVE Unit Number [id number] Blood Component Type Leukocyte Reduced Red Cell Unit Division 00 Status of Unit TRANSFUSED Transfusion Status OK TO TRANSFUSE Crossmatch Result COMPATIBLE Unit Number [id number] Blood Component Type Leukocyte Reduced Red Cell Unit Division 00 Status of Unit REL FROM ALLOC Transfusion Status OK TO TRANSFUSE Crossmatch Result COMPATIBLE Unit Number [id number] Blood Component Type Leukocyte Reduced Red Cell Unit Division 00 Status of Unit REL FROM ALLOC Transfusion Status OK TO TRANSFUSE Crossmatch Result COMPATIBLE Unit Number [id number] Blood Component Type Leukocyte Reduced Red Cell Unit Division 00 Status of Unit REL FROM ALLOC Transfusion Status OK TO TRANSFUSE Crossmatch Result COMPATIBLE Unit Number [id number] Blood Component Type Leukocyte Reduced Red Cell Unit Division 00 Status of Unit TRANSFUSED Transfusion Status OK TO TRANSFUSE Crossmatch Result COMPATIBLE Unit Number [id number] Blood Component Type Leukocyte Reduced Red Cell Unit Division 00 Status of Unit REL FROM ALLOC Transfusion Status OK TO TRANSFUSE Crossmatch Result COMPATIBLE Normal [facility] Comment on above: Performed By: #### E RTPF, CONNER, LIP, LIVP, TEGCR ####[facility] [id number] [place], [place] [id number] Vital Signs Date Time Vital Sign Value Performing Clinician Faci lity 06-21-2024 13:01-0500 Body mass index (BMI) [Ratio] 18.79 kg/m2 DENIA Carpenter MD Work Phone: [facility] 06-21-2024 13:01-0500 Body temperature 97.9 [degF] DENIA Carpenter MD Work Phone: [facility] 06-21-2024 13:01-0500 Body weight 59.4 kg DENIA Carpenter MD Work Phone: [facility] 06-21-2024 13:01-0500 Diastolic blood pressure 58 mm[Hg] DENIA Carpenter MD Work Phone: [facility] 06-21-2024 13:01-0500 Heart rate 95 /min DENIA Carpenter MD Work Phone: [facility] 06-21-2024 13:01-0500 Respiratory rate 18 /min DENIA Carpenter MD Work Phone: [facility] 06-21-2024 13:01-0500 SaO2% (BldA) [Mass fraction] 96 % DENIA Carpenter MD Work Phone: [facility] 06-21-2024 13:01-0500 Systolic blood pressure 110 mm[Hg] DENIA Carpenter MD Work Phone: [facility] 06-10-2024 14:47-0500 Body height 177.8 cm Hebert Miguel MD Work Phone: [facility] 06-10-2024 14:47-0500 Body mass index (BMI) [Ratio] 20.09 kg/m2 Hebert Miguel MD Work Phone: [facility] 06-10-2024 14:47-0500 Body weight 63.5 kg Hebert Miguel MD Work Phone: [facility] 06-01-2024 13:32-0500 Body height 177.8 cm Gildardo Lacy MD Work Phone: [facility] 06-01-2024 13:32-0500 Body mass index (BMI) [Ratio] 18.37 kg/m2 Gildardo Lacy MD Work Phone: [facility] 06-01-2024 13:32-0500 Body temperature 97.81 [degF] Gildardo Lacy MD Work Phone: [facility] 06-01-2024 13:32-0500 Body weight 58.06 kg Gildardo Lacy MD Work Phone: [facility] 06-01-2024 13:32-0500 Diastolic blood pressure 52 mm[Hg] Gildardo Lacy MD Work Phone: [facility] 06-01-2024 13:32-0500 Heart rate 107 /min Gildardo Lacy MD Work Phone: [facility] 06-01-2024 13:32-0500 Respiratory rate 24 /min Gildardo Lacy MD Work Phone: [facility] 06-01-2024 13:32-0500 SaO2% (BldA) [Mass fraction] 90 % Gildardo Lacy MD Work Phone: [facility] 06-01-2024 13:32-0500 Systolic blood pressure 114 mm[Hg] Gildardo Lacy MD Work Phone: [facility] 04-12-2024 13:24-0500 Body height 177.8 cm Gildardo Lacy MD Work Phone: [facility] 04-12-2024 13:24-0500 Body mass index (BMI) [Ratio] 19.8 kg/m2 Gildardo Lacy MD Work Phone: [facility] 04-12-2024 13:24-0500 Body temperature 98.4 [degF] Gildardo Lacy MD Work Phone: [facility] 04-12-2024 13:24-0500 Body weight 62.6 kg Gildardo Lacy MD Work Phone: [facility] 04-12-2024 13:24-0500 Diastolic blood pressure 66 mm[Hg] Gildardo Lacy MD Work Phone: [facility] 04-12-2024 13:24-0500 Heart rate 111 /min Gildardo Lacy MD Work Phone: [facility] 04-12-2024 13:24-0500 Respiratory rate 20 /min Gildardo Lacy MD Work Phone: [facility] 04-12-2024 13:24-0500 SaO2% (BldA) [Mass fraction] 92 % Gildardo Lacy MD Work Phone: [facility] 04-12-2024 13:24-0500 Systolic blood pressure 140 mm[Hg] Gildardo Lacy MD Work Phone: [facility] 02-29-2024 09:56-0400 Body height 177.8 cm Gildardo Lacy MD Work Phone: [facility] 02-29-2024 09:56-0400 Body mass index (BMI) [Ratio] 18.65 kg/m2 Gildardo Lacy MD Work Phone: [facility] 02-29-2024 09:56-0400 Body temperature 97.81 [degF] Gildardo Lacy MD Work Phone: [facility] 02-29-2024 09:56-0400 Body weight 58.97 kg Gildardo Lacy MD Work Phone: [facility] 02-29-2024 09:56-0400 Diastolic blood pressure 66 mm[Hg] Gildardo Lacy MD Work Phone: [facility] 02-29-2024 09:56-0400 Heart rate 92 /min Gildardo Lacy MD Work Phone: [facility] 02-29-2024 09:56-0400 Respiratory rate 18 /min Gildardo Lacy MD Work Phone: [facility] 02-29-2024 09:56-0400 SaO2% (BldA) [Mass fraction] 97 % Gildardo Lacy MD Work Phone: [facility] 02-29-2024 09:56-0400 Systolic blood pressure 150 mm[Hg] Gildardo Lacy MD Work Phone: [facility] 02-02-2024 09:35-0400 Body height 177.8 cm Cassie PHAN Work Phone: [facility] 02-02-2024 09:35-0400 Body mass index (BMI) [Ratio] 20.09 kg/m2 Cassie Hood PA Work Phone: [facility] 02-02-2024 09:35-0400 Body weight 63.5 kg Cassie Hood PA Work Phone: [facility] 12-22-2023 14:55-0400 Body height 178.7 cm Esdras Cash MD Work Phone: [facility] 12-22-2023 14:55-0400 Body mass index (BMI) [Ratio] 19.32 kg/m2 Esdras Cash MD Work Phone: [facility] 12-22-2023 14:55-0400 Body temperature 98.2 [degF] Esdras Cash MD Work Phone: [facility] 12-22-2023 14:55-0400 Body weight 61.69 kg Esdras Cash MD Work Phone: [facility] 12-22-2023 14:55-0400 Diastolic blood pressure 89 mm[Hg] Esdras Cash MD Work Phone: [facility] 12-22-2023 14:55-0400 Heart rate 104 /min Esdras Cash MD Work Phone: [facility] 12-22-2023 14:55-0400 Respiratory rate 18 /min Esdras Cash MD Work Phone: [facility] 12-22-2023 14:55-0400 SaO2% (BldA) [Mass fraction] 95 % Esdras Cash MD Work Phone: [facility] 12-22-2023 14:55-0400 Systolic blood pressure 126 mm[Hg] Esdras Cash MD Work Phone: [facility] 12-22-2023 14:35-0400 Body mass index (BMI) [Ratio] 19.38 kg/m2 DENIA Carpenter MD Work Phone: [facility] 12-22-2023 14:35-0400 Body temperature 98.2 [degF] DENIA Carpenter MD Work Phone: [facility] 12-22-2023 14:35-0400 Body weight 61.9 kg DENIA Carpenter MD Work Phone: [facility] 12-22-2023 14:35-0400 Diastolic blood pressure 89 mm[Hg] DENIA Carpenter MD Work Phone: [facility] 12-22-2023 14:35-0400 Heart rate 104 /min DENIA Carpenter MD Work Phone: [facility] 12-22-2023 14:35-0400 Respiratory rate 18 /min DENIA Carpenter MD Work Phone: [facility] 12-22-2023 14:35-0400 SaO2% (BldA) [Mass fraction] 95 % DENIA Carpenter MD Work Phone: [facility] 12-22-2023 14:35-0400 Systolic blood pressure 126 mm[Hg] DENIA Carpenter MD Work Phone: [facility] 11-17-2023 10:29-0400 Body height 177.8 cm Carmen Neely MD Work Phone: [facility] 11-17-2023 10:29-0400 Body mass index (BMI) [Ratio] 18.65 kg/m2 Carmen Neely MD Work Phone: [facility] 11-17-2023 10:29-0400 Body weight 58.97 kg Carmen Neely MD Work Phone: [facility] 11-17-2023 10:29-0400 Diastolic blood pressure 78 mm[Hg] Carmen Neely MD Work Phone: [facility] 11-17-2023 10:29-0400 Heart rate 88 /min Carmen Neely MD Work Phone: [facility] 11-17-2023 10:29-0400 Systolic blood pressure 138 mm[Hg] Carmen Neely MD Work Phone: [facility] 08-18-2023 14:20-0400 Body height 178.7 cm Esdras Cash MD Work Phone: [facility] 08-18-2023 14:20-0400 Body temperature 97.5 [degF] Esdras Cash MD Work Phone: [facility] 08-18-2023 14:20-0400 Body weight 67.7 kg Esdras Cash MD Work Phone: [facility] 08-18-2023 14:20-0400 Diastolic blood pressure 88 mm[Hg] Esdras Cash MD Work Phone: [facility] 08-18-2023 14:20-0400 Heart rate 107 /min Esdras Cash MD Work Phone: [facility] 08-18-2023 14:20-0400 Respiratory rate 18 /min Esdras Cash MD Work Phone: [facility] 08-18-2023 14:20-0400 SaO2% (BldA) [Mass fraction] 94 % Esdras Cash MD Work Phone: [facility] 08-18-2023 14:20-0400 Systolic blood pressure 161 mm[Hg] Esdras Cash MD Work Phone: [facility] 08-18-2023 14:00-0400 Body mass index (BMI) [Ratio] 21.2 kg/m2 DENIA Carpenter MD Work Phone: [facility] 08-18-2023 14:00-0400 Body temperature 98.49 [degF] DENIA Carpenter MD Work Phone: [facility] 08-18-2023 14:00-0400 Diastolic blood pressure 83 mm[Hg] DENIA Carpenter MD Work Phone: [facility] 08-18-2023 14:00-0400 Heart rate 104 /min DENIA Carpenter MD Work Phone: [facility] 08-18-2023 14:00-0400 SaO2% (BldA) [Mass fraction] 93 % DENIA Carpenter MD Work Phone: [facility] 08-18-2023 14:00-0400 Systolic blood pressure 147 mm[Hg] DENIA Carpenter MD Work Phone: [facility] 05-06-2023 11:18-0500 Body height 177.8 cm Carmen Neely MD Work Phone: [facility] 05-06-2023 11:18-0500 Body mass index (BMI) [Ratio] 21.67 kg/m2 Carmen Neely MD Work Phone: [facility] 05-06-2023 11:18-0500 Body weight 68.49 kg Carmen Neely MD Work Phone: [facility] 05-06-2023 11:18-0500 Diastolic blood pressure 76 mm[Hg] Carmen Neely MD Work Phone: [facility] 05-06-2023 11:18-0500 Heart rate 72 /min Carmen Neely MD Work Phone: [facility] 05-06-2023 11:18-0500 Systolic blood pressure 118 mm[Hg] Carmen Neely MD Work Phone: [facility] 06-10-2022 10:18-0500 Body height 177.8 cm Gildardo A Naderer Work Phone: [facility] [address] DO Work Phone: 06-10-2022 10:18-0500 Body mass index (BMI) [Ratio] 25.83 kg/m2 Gildardo A Naderer Work Phone: [facility] [address] DO Work Phone: 06-10-2022 10:18-0500 Body surface area Derived from formula 2 m2 Gildardo A Naderer Work Phone: [facility] [address] DO Work Phone: 06-10-2022 10:18-0500 Body weight 81.65 kg Gildardo A Naderer Work Phone: [facility] [address] DO Work Phone: 06-10-2022 10:18-0500 Diastolic blood pressure 74 mm[Hg] Gildardo Butler Naderer Work Phone: [facility] [address] DO Work Phone: 06-10-2022 10:18-0500 Heart rate 75 /min Gildardo A Naderer Work Phone: [facility] [address] DO Work Phone: 06-10-2022 10:18-0500 Systolic blood pressure 126 mm[Hg] Gildardo A Naderer Work Phone: [facility] [address] DO Work Phone: 05-20-2022 10:08-0500 Body height 178.7 cm Esdras Cash MD Work Phone: [facility] 01-17-2023 10:08-0500 Body temperature 97.7 [degF] Esdras Cash MD Work Phone: [facility] 05-20-2022 10:08-0500 Body weight 78.65 kg Esdras Cash MD Work Phone: [facility] 05-20-2022 10:08-0500 Diastolic blood pressure 75 mm[Hg] Esdras Cash MD Work Phone: [facility] 05-20-2022 10:08-0500 Heart rate 82 /min Esdras Cash MD Work Phone: [facility] 05-20-2022 10:08-0500 Respiratory rate 16 /min Esdras Cash MD Work Phone: [facility] 05-20-2022 10:08-0500 SaO2% (BldA) [Mass fraction] 96 % Esdras Cash MD Work Phone: [facility] 05-20-2022 10:08-0500 Systolic blood pressure 128 mm[Hg] Esdras Cash MD Work Phone: [facility] 04-17-2022 11:11-0500 Body temperature 97.5 [degF] DENIA Carpenter MD Work Phone: [facility] 04-17-2022 11:11-0500 Body weight 78.93 kg DENIA Carpenter MD Work Phone: [facility] 04-17-2022 11:11-0500 Diastolic blood pressure 60 mm[Hg] DENIA Carpenter MD Work Phone: [facility] 04-17-2022 11:11-0500 Heart rate 74 /min DENIA Carpenter MD Work Phone: [facility] 04-17-2022 11:11-0500 Respiratory rate 18 /min DENIA Carpenter MD Work Phone: [facility] 04-17-2022 11:11-0500 SaO2% (BldA) [Mass fraction] 97 % DENIA Carpenter MD Work Phone: [facility] 04-17-2022 11:11-0500 Systolic blood pressure 100 mm[Hg] DENIA Carpenter MD Work Phone: [facility] 02-25-2022 13:52-0400 Body temperature 97.5 [degF] DENIA Carpenter MD Work Phone: [facility] 02-25-2022 13:52-0400 Body weight 77.11 kg DENIA Carpenter MD Work Phone: [facility] 02-25-2022 13:52-0400 Diastolic blood pressure 68 mm[Hg] DENIA aCrpenter MD Work Phone: [facility] 02-25-2022 13:52-0400 Heart rate 92 /min DENIA Carpenter MD Work Phone: [facility] 02-25-2022 13:52-0400 Respiratory rate 16 /min DENIA Carpenter MD Work Phone: [facility] 02-25-2022 13:52-0400 SaO2% (BldA) [Mass fraction] 95 % DENIA Carpenter MD Work Phone: [facility] 02-25-2022 13:52-0400 Systolic blood pressure 125 mm[Hg] DENIA Carpenter MD Work Phone: [facility] 02-18-2022 10:26-0400 Body height 178.7 cm Esdras Cash MD Work Phone: [facility] 02-18-2022 10:26-0400 Body temperature 97.59 [degF] Esdras Cash MD Work Phone: [facility] 02-18-2022 10:26-0400 Body weight 79.83 kg Esdras Cash MD Work Phone: [facility] 02-18-2022 10:26-0400 Diastolic blood pressure 69 mm[Hg] Esdras Cash MD Work Phone: [facility] 02-18-2022 10:26-0400 Heart rate 72 /min Esdras Cash MD Work Phone: [facility] 02-18-2022 10:26-0400 Respiratory rate 18 /min Esdras Cash MD Work Phone[facility] [facility] 02-18-2022 10:26-0400 SaO2% (BldA) [Mass fraction] 96 % Esdras Cash MD Work Phone: [facility] 02-18-2022 10:26-0400 Systolic blood pressure 107 mm[Hg] Esdras Cash MD Work Phone: [facility] 01-13-2022 12:00-0400 54 1 Gildardo Butler Naderer Work Phone: [facility] [address] [place] Work Phone: Comment on above: [place] [id number] 01-13-2022 10:45-0400 70 1 Gildardo Butler Naderer Work Phone: [facility] 600 DO Work Phone: Comment on above: [id number] 12-26-2021 13:12-0400 Body temperature 97.59 [degF] DENIA Carpenter MD Work Phone: [facility] 12-26-2021 13:12-0400 Body weight 76.66 kg DENIA Carpenter MD Work Phone: [facility] 12-26-2021 13:12-0400 Diastolic blood pressure 77 mm[Hg] DENIA Carpenter MD Work Phone: [facility] 12-26-2021 13:12-0400 Heart rate 81 /min DENIA Carpenter MD Work Phone: [facility] 12-26-2021 13:12-0400 Respiratory rate 16 /min DENIA Carpenter MD Work Phone: [facility] 12-26-2021 13:12-0400 SaO2% (BldA) [Mass fraction] 99 % DENIA Carpenter MD Work Phone: [facility] 12-26-2021 13:12-0400 Systolic blood pressure 122 mm[Hg] DENIA Carpenter MD Work Phone: [facility] 11-27-2021 10:50-0400 Diastolic blood pressure 68 mm[Hg] Gildardo Butler Naderer Work Phone: [facility] 250 DO Work Phone: 11-27-2021 10:50-0400 Systolic blood pressure 90 mm[Hg] Gildardo Butler Naderer Work Phone: [facility] 250 DO Work Phone: 11-27-2021 10:47-0400 Body height 177.8 cm Gildardo Butler Naderer Work Phone: [facility] 250 DO Work Phone: 11-27-2021 10:47-0400 Body mass index (BMI) [Ratio] 23.53 kg/m2 Gildardo Butler Naderer Work Phone: [facility] 250 DO Work Phone: 11-27-2021 10:47-0400 Body surface area Derived from formula 1.92 m2 Gildardo Butler Naderer Work Phone: [facility] 250 DO Work Phone: 11-27-2021 10:47-0400 Body weight 74.39 kg Gildardo Butler Naderer Work Phone: [facility] 250 DO Work Phone: 11-27-2021 10:47-0400 Diastolic blood pressure 70 mm[Hg] Gildardo Butler Naderer Work Phone: [facility] 250 DO Work Phone: 11-27-2021 10:47-0400 Heart rate 92 /min Gildardo Butler Naderer Work Phone: [facility] 250 DO Work Phone: 11-27-2021 10:47-0400 Systolic blood pressure 102 mm[Hg] Gildardo Masseyr Work Phone: [facility] 250 DO Work Phone: 11-27-2021 10:47-0400 8 1 Gildardo Masseyr Work Phone: [facility] 250 DO Work Phone: Comment on above: [id number] 11-21-2021 10:53-0400 Body temperature 97.9 [degF] DENIA Carpenter MD Work Phone: [facility] 11-21-2021 10:53-0400 Body weight 74.93 kg DENIA Carpenter MD Work Phone: [facility] 11-21-2021 10:53-0400 Diastolic blood pressure 72 mm[Hg] DENIA Carpenter MD Work Phone: [facility] 11-21-2021 10:53-0400 Heart rate 117 /min DENIA Carpenter MD Work Phone: [facility] 11-21-2021 10:53-0400 Respiratory rate 18 /min DENIA Carpenter MD Work Phone: [facility] 11-21-2021 10:53-0400 SaO2% (BldA) [Mass fraction] 97 % DENIA Carpenter MD Work Phone: [facility] 11-21-2021 10:53-0400 Systolic blood pressure 119 mm[Hg] DENIA Carpenter MD Work Phone: [facility] 10-03-2021 13:55-0400 Body height 178.7 cm Esdras Cash MD Work Phone: [facility] 10-03-2021 13:55-0400 Body temperature 98.01 [degF] Esdras Cash MD Work Phone: [facility] 10-03-2021 13:55-0400 Body weight 75.39 kg Esdras Cash MD Work Phone: [facility] 10-03-2021 13:55-0400 Diastolic blood pressure 64 mm[Hg] Esdras Cash MD Work Phone: [facility] 10-03-2021 13:55-0400 Heart rate 97 /min Esdras Cash MD Work Phone: [facility] 10-03-2021 13:55-0400 Respiratory rate 16 /min Esdras Cash MD Work Phone: [facility] 10-03-2021 13:55-0400 SaO2% (BldA) [Mass fraction] 98 % Esdras Cash MD Work Phone: [facility] 10-03-2021 13:55-0400 Systolic blood pressure 116 mm[Hg] Esdras Cash MD Work Phone: [facility] 09-23-2021 12:09-0400 Body height 178.7 cm Esdras Cash MD Work Phone: [facility] 09-23-2021 12:09-0400 Body temperature 97.59 [degF] Esdras Cash MD Work Phone: [facility] 09-23-2021 12:09-0400 Body weight 75.12 kg Esdras Cash MD Work Phone: [facility] 09-23-2021 12:09-0400 Diastolic blood pressure 64 mm[Hg] Esdras Cash MD Work Phone: [facility] 09-23-2021 12:09-0400 Heart rate 81 /min Esdras Cash MD Work Phone: [facility] 09-23-2021 12:09-0400 Respiratory rate 16 /min Esdras Cash MD Work Phone: [facility] 09-23-2021 12:09-0400 SaO2% (BldA) [Mass fraction] 97 % Esdras Cash MD Work Phone: [facility] 09-23-2021 12:09-0400 Systolic blood pressure 118 mm[Hg] Esdras Cash MD Work Phone: [facility] 09-16-2021 11:57-0400 Body height 178.7 cm Anthony Mejia PA-C Work Phone: [facility] 09-16-2021 11:57-0400 Body temperature 96.69 [degF] Anthony Mejia PA-C Work Phone: [facility] 09-16-2021 11:57-0400 Body weight 77.11 kg Anthony Mejia PA-C Work Phone: [facility] 09-16-2021 11:57-0400 Diastolic blood pressure 76 mm[Hg] Anthony Mejia PA-C Work Phone: [facility] 09-16-2021 11:57-0400 Heart rate 110 /min Anthony Mejia PA-C Work Phone: [facility] 09-16-2021 11:57-0400 Respiratory rate 18 /min Anthony Mejia PA-C Work Phone: [facility] 09-16-2021 11:57-0400 SaO2% (BldA) [Mass fraction] 99 % Anthony Mejia PA-C Work Phone: [facility] 09-16-2021 11:57-0400 Systolic blood pressure 112 mm[Hg] Anthony Mejia PA-C Work Phone: [facility] 09-16-2021 11:23-0400 Body temperature 96.69 [degF] Mike Brown MD Work Phone: [facility] 09-16-2021 11:23-0400 Body weight 77.11 kg Mike Brown MD Work Phone: [facility] 09-16-2021 11:23-0400 Diastolic blood pressure 76 mm[Hg] Mike Brown MD Work Phone: [facility] 09-16-2021 11:23-0400 Heart rate 110 /min Mike Brown MD Work Phone: [facility] 09-16-2021 11:23-0400 Respiratory rate 18 /min Mike Brown MD Work Phone: [facility] 09-16-2021 11:23-0400 SaO2% (BldA) [Mass fraction] 99 % Mike Brown MD Work Phone: [facility] 09-16-2021 11:23-0400 Systolic blood pressure 112 mm[Hg] Mike Brown MD Work Phone: [facility] 09-09-2021 11:46-0400 Body height 178.7 cm Esdras Cash MD Work Phone: [facility] 09-09-2021 11:46-0400 Body temperature 97.59 [degF] Esdras Cash MD Work Phone: [facility] 09-09-2021 11:46-0400 Body weight 77.66 kg Esdras Cash MD Work Phone: [facility] 09-09-2021 11:46-0400 Diastolic blood pressure 73 mm[Hg] Esdras Cash MD Work Phone: [facility] 09-09-2021 11:46-0400 Heart rate 81 /min Esdras Cash MD Work Phone: [facility] 09-09-2021 11:46-0400 Respiratory rate 16 /min Esdras Cash MD Work Phone: [facility] 09-09-2021 11:46-0400 SaO2% (BldA) [Mass fraction] 97 % Esdras Cash MD Work Phone: [facility] 09-09-2021 11:46-0400 Systolic blood pressure 123 mm[Hg] Esdras Cash MD Work Phone: [facility] 09-09-2021 11:25-0400 Body temperature 97.59 [degF] DENIA Carpenter MD Work Phone: [facility] 09-09-2021 11:25-0400 Body weight 77.38 kg DENIA Carpenter MD Work Phone: [facility] 09-09-2021 11:25-0400 Diastolic blood pressure 71 mm[Hg] DENIA Carpenter MD Work Phone: [facility] 09-09-2021 11:25-0400 Heart rate 78 /min DENIA Carpenter MD Work Phone: [facility] 09-09-2021 11:25-0400 Respiratory rate 16 /min DENIA Carpenter MD Work Phone: [facility] 09-09-2021 11:25-0400 SaO2% (BldA) [Mass fraction] 99 % DENIA Carpenter MD Work Phone: [facility] 09-09-2021 11:25-0400 Systolic blood pressure 134 mm[Hg] DENIA Carpenter MD Work Phone: [facility] 09-02-2021 09:14-0400 Body height 178.7 cm Anthony Mejia PA-C Work Phone: [facility] 09-02-2021 09:14-0400 Body temperature 98.01 [degF] Anthony Mejia PA-C Work Phone: [facility] 09-02-2021 09:14-0400 Body weight 76.66 kg Anthony Mejia PA-C Work Phone: [facility] 09-02-2021 09:14-0400 Diastolic blood pressure 69 mm[Hg] Anthony Mejia PA-C Work Phone: [facility] 09-02-2021 09:14-0400 Heart rate 101 /min Anthony Mejia PA-C Work Phone: [facility] 09-02-2021 09:14-0400 Respiratory rate 16 /min Anthony Mejia PA-C Work Phone: [facility] 09-02-2021 09:14-0400 SaO2% (BldA) [Mass fraction] 98 % Anthony Mejia PA-C Work Phone: [facility] 09-02-2021 09:14-0400 Systolic blood pressure 121 mm[Hg] Anthony Weaver PA-C Work Phone: [facility] 08-26-2021 09:00-0400 Body height 178.7 cm Chair [place] Work Phone: [facility] 08-26-2021 09:00-0400 Body temperature 97.3 [degF] Chair [place] Work Phone: [facility] 08-26-2021 09:00-0400 Body weight 77.4 kg Chair [place] Work Phone: [facility] 08-26-2021 09:00-0400 Diastolic blood pressure 61 mm[Hg] Chair [place] Work Phone: [facility] 08-26-2021 09:00-0400 Heart rate 85 /min Chair [place] Work Phone: [facility] 08-26-2021 09:00-0400 Respiratory rate 16 /min Chair [place] Work Phone: [facility] 08-26-2021 09:00-0400 SaO2% (BldA) [Mass fraction] 98 % Chair [place] Work Phone: [facility] 08-26-2021 09:00-0400 Systolic blood pressure 132 mm[Hg] Chair [place] Work Phone: [facility] 08-19-2021 13:25-0400 Body height 178.7 cm Nathaly Biggs APRN.[employer] Work Phone: [facility] 08-19-2021 13:25-0400 Body temperature 97.59 [degF] Nathaly Biggs APRN.[employer] Work Phone: [facility] 08-19-2021 13:25-0400 Body weight 77.38 kg Nathaly Biggs APRN.[employer] Work Phone: [facility] 08-19-2021 13:25-0400 Diastolic blood pressure 89 mm[Hg] Nathaly Biggs APRN.[employer] Work Phone: [facility] 08-19-2021 13:25-0400 Heart rate 80 /min Nathaly Biggs APRN.[employer] Work Phone: [facility] 08-19-2021 13:25-0400 Respiratory rate 16 /min Nathaly Biggs APRN.[employer] Work Phone: [facility] 08-19-2021 13:25-0400 SaO2% (BldA) [Mass fraction] 96 % Nathaly Biggs APRN.[employer] Work Phone: [facility] 08-19-2021 13:25-0400 Systolic blood pressure 120 mm[Hg] Nathaly Biggs APRN.[employer] Work Phone: [facility] 08-19-2021 12:25-0400 Body temperature 97.7 [degF] DENIA Carpenter MD Work Phone: [facility] 08-19-2021 12:25-0400 Body weight 78.93 kg DENIA Carpenter MD Work Phone: [facility] 08-19-2021 12:25-0400 Diastolic blood pressure 65 mm[Hg] DENIA Carpenter MD Work Phone: [facility] 08-19-2021 12:25-0400 Heart rate 77 /min DENIA Carpenter MD Work Phone: [facility] 08-19-2021 12:25-0400 Respiratory rate 16 /min DENIA Carpenter MD Work Phone: [facility] 08-19-2021 12:25-0400 SaO2% (BldA) [Mass fraction] 98 % DENIA Carpenter MD Work Phone: [facility] 08-19-2021 12:25-0400 Systolic blood pressure 120 mm[Hg] DENIA Carpenter MD Work Phone: [facility] 08-12-2021 12:28-0400 Body height 178.7 cm Chair [place] Work Phone: [facility] 08-12-2021 11:47-0400 Body height 177 cm Esdras Cash MD Work Phone: [facility] 08-12-2021 11:47-0400 Body temperature 97.81 [degF] Esdras Cash MD Work Phone: [facility] 08-12-2021 11:47-0400 Body weight 75.66 kg Esdras Cash MD Work Phone: [facility] 08-12-2021 11:47-0400 Diastolic blood pressure 65 mm[Hg] Esdras Cash MD Work Phone: [facility] 08-12-2021 11:47-0400 Heart rate 72 /min Esdras Cash MD Work Phone: [facility] 08-12-2021 11:47-0400 Respiratory rate 16 /min Esdras Cash MD Work Phone: [facility] 08-12-2021 11:47-0400 SaO2% (BldA) [Mass fraction] 98 % Esdras Cash MD Work Phone: [facility] 08-12-2021 11:47-0400 Systolic blood pressure 113 mm[Hg] Esdras Cash MD Work Phone: [facility] 08-12-2021 10:32-0400 Body temperature 97.7 [degF] DENIA Carpenter MD Work Phone: [facility] 08-12-2021 10:32-0400 Body weight 77.11 kg DENIA Carpenter MD Work Phone: [facility] 08-12-2021 10:32-0400 Diastolic blood pressure 64 mm[Hg] DENIA Carpenter MD Work Phone: [facility] 08-12-2021 10:32-0400 Heart rate 79 /min DENIA Carpenter MD Work Phone: [facility] 08-12-2021 10:32-0400 Respiratory rate 16 /min DENIA Carpenter MD Work Phone: [facility] 08-12-2021 10:32-0400 SaO2% (BldA) [Mass fraction] 99 % DENIA Carpenter MD Work Phone: [facility] 08-12-2021 10:32-0400 Systolic blood pressure 119 mm[Hg] DENIA Carpenter MD Work Phone: [facility] 08-01-2021 16:11-0400 Body height 177 cm Esdras Cash MD Work Phone: [facility] 08-01-2021 16:11-0400 Body temperature 97 [degF] Esdras Cash MD Work Phone: [facility] 08-01-2021 16:11-0400 Body weight 77.84 kg Esdras Cash MD Work Phone: [facility] 08-01-2021 16:11-0400 Diastolic blood pressure 64 mm[Hg] Esdras Cash MD Work Phone: [facility] 08-01-2021 16:11-0400 Heart rate 68 /min Esdras Cash MD Work Phone: [facility] 08-01-2021 16:11-0400 Respiratory rate 16 /min Esdars Cash MD Work Phone: [facility] 08-01-2021 16:11-0400 SaO2% (BldA) [Mass fraction] 99 % Esdras Cash MD Work Phone: [facility] 08-01-2021 16:11-0400 Systolic blood pressure 126 mm[Hg] Esdras Cash MD Work Phone: [facility] 07-30-2021 11:02-0400 Body temperature 98.29 [degF] DENIA Carpenter MD Work Phone: [facility] 07-30-2021 11:02-0400 Body weight 77.11 kg DENIA Carpenter MD Work Phone: [facility] 07-30-2021 11:02-0400 Diastolic blood pressure 59 mm[Hg] DENIA Carpenter MD Work Phone: [facility] 07-30-2021 11:02-0400 Heart rate 69 /min DENIA Carpenter MD Work Phone: [facility] 07-30-2021 11:02-0400 Respiratory rate 16 /min DENIA Carpenter MD Work Phone: [facility] 07-30-2021 11:02-0400 SaO2% (BldA) [Mass fraction] 99 % DENIA Carpenter MD Work Phone: [facility] 07-30-2021 11:02-0400 Systolic blood pressure 108 mm[Hg] DENIA Carpenter MD Work Phone: [facility] 01-22-2018 18:46-0400 Respiratory rate NOT REPORTED [facility] Comment on above: Performed By: #### OHP, IOCAL ####[facility] [id number] [place] [id number] 01-19-2018 23:55-0400 Respiratory rate NOT REPORTED [facility] Comment on above: Performed By: #### ERTPF, CONNER, LIP, LIVP , TEGCR ####[facility] [id number] [place] [address] 01-19-2018 22:58-0400 Respiratory rate NOT REPORTED [facility] Comment on above: Performed By: #### OHP, IOCAL ####[facility] [id number] [place] [address] 01-19-2018 22:10-0400 Respiratory rate NOT REPORTED [facility] Comment on above: Performed By: #### OHP, IOCAL ####[facility] [id number] [place] [address] 01-19-2018 21:07-0400 Respiratory rate NOT REPORTED [facility] Comment on above: Performed By: #### ERTPF, CONNER, LIP, LIVP , TEGCR ####[facility] [id number] [place] [id number] Encounters Encounter Date Encounter Type Care Provider Facility Start: 06-24-2024 End: 06-24-2024 Refill Gildardo Lacy MD Work Phone: [facility] Comment on above: DDD (degenerative di sc disease), thoracic Start: 06-21-2024 End: 06-21-2024 Office outpatient visit 15 minutes Kathrine Carpenter MD Work Phone: Radiation Oncology Comment on above: Head and neck cancer (HCC) (Primary Dx) Start: 06-21-2024 End: 06-21-2024 ambulatory GILDARDO LACY Facility:[facility] Start: 06-10-2024 End: 06-10-2024 Clinisync Result Encounter Generic External Data Provider [facility] External Department Unsolicited Start: 06-10-2024 End: 06-10-2024 Clinisync Result Encounter Generic External Data Provider [facility] External Department Unsolicited Start: 06-10-2024 End: 06-10-2024 Patient encounter procedure Hebert Miguel MD Work Phone: Orthopaedics Comment on above: Nontraumatic complet e tear of right rotator cuff (Primary Dx); Biceps tendinitis of right upper extremity; Smoking Start: 06-10-2024 End: 06-10-2024 ambulatory [facility] Facility:[facility] Start: 06-10-2024 End: 06-10-2024 Subsequent hospital visit by physician [facility] Radiology Comment on above: Pain [R52] Start: 06-07-2024 End: 06-07-2024 Orders Only Hebert Miguel MD Work Phone: Orthopaedics Comment on above: Pain (Primary Dx) Start: 06-01-2024 End: 06-01-2024 Office outpatient visit 15 minutes Gildardo Lacy MD Work Phone: [facility] Comment on above: 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); Unsteady gait; Tongue cancer (CMS/[facility]); Chronic obstructive pulmonary disease, unspecified COPD type ([facility]/HCC) Start: 06-01-2024 End: 06-01-2024 ambulatory GILDARDO LACY Not Available Start: 05-26-2024 End: 05-26-2024 Refill Gildardo Lacy MD Work Phone: [facility] Comment on above: DDD (degenerative di sc disease), thoracic Start: 05-25-2024 End: 05-26-2024 Refill Gildardo Lacy MD Work Phone: [facility] Comment on above: DDD (degenerative di sc disease), thoracic Start: 05-24-2024 End: 05-24-2024 Bamboo flowsheet Cassie PHAN Work Phone: [facility] Start: 05-24-2024 End: 05-24-2024 Bamboo flowsheet Cassie PHAN Work Phone: [facility] Start: 05-24-2024 End: 05-24-2024 Postop follow up visit related to original px Cassie PHAN Work Phone: [facility] Comment on above: S/P arthroscopy of r ight shoulder (Primary Dx); Internal derangement of shoulder, right; Arthralgia, unspecified joint Start: 05-24-2024 End: 05-24-2024 ambulatory CASSIE HOOD Not Available Start: 05-12-2024 End: 05-16-2024 Telephone encounter Cassie PHAN Work Phone: [facility] Comment on above: Order Start: 05-06-2024 End: 05-06-2024 Bamboo flowsheet Cassie PHAN Work Phone: [facility] Start: 05-06-2024 End: 05-06-2024 Bamboo flowsheet Cassie PHAN Work Phone: [facility] Start: 05-06-2024 End: 05-06-2024 Postop follow up visit related to original px Cassie PHAN Work Phone: [facility] Comment on above: S/P arthroscopy of r ight shoulder (Primary Dx); Internal derangement of shoulder, right Start: 05-06-2024 End: 05-06-2024 ambulatory CASSIE HOOD Not Available Start: 04-21-2024 End: 04-21-2024 Refill Gildardo Lacy MD Work Phone: [facility] Comment on above: DDD (degenerative di sc disease), thoracic Start: 04-12-2024 End: 04-12-2024 Bamboo flowsheet Gildardo Lacy MD Work Phone: [facility] Start: 04-12-2024 End: 04-12-2024 Bamboo flowsheet Gildardo Lacy MD Work Phone: [facility] Start: 04-12-2024 End: 04-12-2024 Patient encounter procedure Gildardo Lacy MD Work Phone: [facility] Work Phone: Start: 04-12-2024 End: 04-12-2024 Postop follow up visit related to original px Gildardo Lacy MD Work Phone: [facility] Comment on above: Medicare annual well ness visit, subsequent (Primary Dx); Left foot pain Start: 04-12-2024 End: 04-12-2024 ambulatory GILDARDO LACY Not Available Start: 04-04-2024 End: 04-04-2024 Refill Sadaf Bowden [facility] Work Phone: [facility] Comment on above: Refill Request Start: 03-29-2024 End: 03-30-2024 Refill Gildardo Lacy MD Work Phone: [facility] Comment on above: Thoracic spondylosis ; DDD (degenerative disc disease), thoracic Start: 03-23-2024 End: 03-23-2024 Bamboo flowsheet Cassie PHAN Work Phone: [facility] Start: 03-23-2024 End: 03-23-2024 Bamboo flowsheet Cassie Hood PA Work Phone: [facility] Start: 03-23-2024 End: 03-23-2024 Postop follow up visit related to original px Cassie Hood PA Work Phone: [facility] Comment on above: S/P arthroscopy of r ight shoulder (Primary Dx) Start: 03-23-2024 End: 03-23-2024 ambulatory CASSIE HOOD Not Available Start: 03-01-2024 End: 03-01-2024 Refill Gildardo Lacy MD Work Phone: [facility] Comment on above: DDD (degenerative di sc disease), thoracic Start: 02-29-2024 End: 02-29-2024 Bamboo flowsheet Gildardo Lacy MD Work Phone: [facility] Start: 02-29-2024 End: 02-29-2024 Bamboo flowsheet Gildardo Lacy MD Work Phone: [facility] Start: 02-29-2024 End: 02-29-2024 Office outpatient visit 15 minutes Gildardo Lacy MD Work Phone: [facility] Comment on above: Chronic obstructive pulmonary disease, unspecified COPD type (CMS/HCC) (Primary Dx); Need for immunization against influenza Start: 02-29-2024 End: 02-29-2024 ambulatory GILDARDO LACY Not Available Start: 02-23-2024 End: 02-23-2024 Bamboo flowsheet Cassie Hood PA Work Phone: [facility] Start: 02-23-2024 End: 02-23-2024 Bamboo flowsheet Cassie PHAN Work Phone: [facility] Start: 02-23-2024 End: 02-23-2024 Postop follow up visit related to original px Cassie PHAN Work Phone: [facility] Comment on above: S/P arthroscopy of r ight shoulder (Primary Dx) Start: 02-23-2024 End: 02-23-2024 ambulatory CASSIE HOOD Not Available Start: 02-22-2024 End: 02-22-2024 Refill Gildardo Lacy MD Work Phone: [facility] Comment on above: Primary insomnia Start: 02-08-2024 End: 02-09-2024 Telephone encounter Jesse George MANUFACTURER[employer] REPRESENTATIVE Work Phone: [facility] Start: 02-02-2024 End: 02-02-2024 Bamboo flowsheet Cassie Hood PA Work Phone: [facility] Start: 02-02-2024 End: 02-02-2024 Bamboo flowsheet Cassie Hood PA Work Phone: [facility] Start: 02-02-2024 End: 02-02-2024 ambulatory CASSIE HOOD Not Available Start: 02-02-2024 End: 02-02-2024 Patient encounter procedure Cassie PHAN Work Phone: [facility] Comment on above: Preop examination (P rimary Dx) Start: 02-02-2024 End: 02-02-2024 Preprocedural examination done Cassie PHAN Work Phone: [facility] Start: 01-11-2024 End: 01-15-2024 Telephone encounter Jr. Martin Chen DO Work Phone: [facility] Start: 01-05-2024 End: 01-05-2024 Refill Gildardo Lacy MD Work Phone: [facility] Comment on above: DDD (degenerative di sc disease), thoracic Start: 12-31-2023 End: 12-31-2023 Refill Marilu Boudreaux [facility] Comment on above: DDD (degenerative di sc disease), thoracic Start: 12-28-2023 End: 12-28-2023 Bamboo flowsheet Jr. Martin Chen DO Work Phone: [facility] Start: 12-28-2023 End: 12-28-2023 Bamboo flowsheet Jr. Martin Chen DO Work Phone: [facility] Start: 12-28-2023 End: 12-28-2023 Office outpatient visit 25 minutes Jr. 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); Severe protein-calorie malnutrition (HCC) Start: 12-22-2023 End: 12-22-2023 ambulatory ESDRAS CASH Facility:[facility] Start: 12-22-2023 End: 12-22-2023 Patient encounter procedure G Сергей Carpenter MD Work Phone: Radiation Oncology Comment on above: Head and neck cancer (HCC) (Primary Dx); History of radiation therapy Start: 12-15-2023 End: 12-15-2023 ambulatory GILDARDO LACY Facility:[facility] Start: 12-15-2023 End: 12-15-2023 Subsequent hospital visit by physician Arrival Time Radiology Work Phone: Radiology Pet CT Comment on above: Cancer of base of to ngue (HCC) [C01] Start: 12-07-2023 End: 12-07-2023 ambulatory MARTIN BAUM Not Available Start: 11-17-2023 End: 11-17-2023 Office outpatient visit 25 minutes Cramen Neely MD Work Phone: [facility] Comment on above: PVD (peripheral vasc ular disease) ([facility]-HCC); Hyperlipidemia, unspecified hyperlipidemia type; TIA (transient ischemic attack); BMI less than 19,adult; Current smoker Start: 11-17-2023 End: 11-17-2023 ambulatory [facility] Ambulatory Start: 11-02-2023 End: 11-02-2023 Emergency department patient visit GILDARDO LACY [facility] Start: 11-02-2023 End: 11-02-2023 ambulatory MARTIN BAUM Not Available Start: 10-21-2023 End: 10-21-2023 ambulatory GILDARDO REGGIE Not Available Start: 10-14-2023 ambulatory VALE neil [facility] Start: 09-08-2023 End: 09-08-2023 Patient encounter procedure MD Gildardo Lacy Work Phone: [facility] Work Phone: Start: 09-08-2023 End: 09-08-2023 ambulatory MD Gildardo Lacy Work Phone: [facility] Work Phone: Start: 08-18-2023 End: 08-18-2023 Nutrition therapy Esdras Cash MD Work Phone: Hematology/Oncology Comment on above: 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); Malaise and fatigue; Chronic obstructive pulmonary disease, unspecified COPD type (HCC); Severe protein-calorie malnutrition (HCC); Cancer related pain Start: 08-18-2023 End: 08-18-2023 Patient encounter procedure Esdras Cash MD Work Phone: [facility] Comment on above: Head and neck cancer (HCC) (Primary Dx); History of radiation therapy Start: 08-18-2023 End: 08-18-2023 ambulatory ESDRAS CASH Facility:[facility] Start: 06-19-2023 Refill Esdras Cash MD Work Phone: Hematology/Oncology Comment on above: Refill Request Start: 05-06-2023 End: 05-06-2023 ambulatory [facility] Ambulatory Start: 05-06-2023 End: 05-06-2023 Office outpatient visit 25 minutes Carmen Neely MD Work Phone: [facility] Comment on above: PVD (peripheral vasc ular disease) (CMS/HCC) (Primary Dx); Abnormal EKG; TIA (transient ischemic attack); Current smoker; Hyperlipidemia, unspecified hyperlipidemia type; Pulmonary emphysema, unspecified emphysema type (CMS/HCC) Start: 03-25-2023 Refill Esdras Cash MD Work Phone: Hematology/Oncology Comment on above: Refill Request Start: 02-13-2023 Telephone encounter Judith Shin Hematology/Oncology Start: 02-11-2023 Refill Nathaly Biggs APRN.[employer] Work Phone: Hematology/Oncology Comment on above: Refill Request Start: 02-11-2023 End: 02-11-2023 Subsequent hospital visit by physician Arrival Time Radiology Work Phone: Radiology Pet CT Start: 01-27-2023 End: 01-27-2023 Patient encounter procedure Kathrine Carpenter MD Work Phone: Radiation Oncology Comment on above: Oropharnyx cancer (H CC) (Primary Dx); Severe protein-calorie malnutrition (HCC); Chronic obstructive pulmonary disease, unspecified COPD type (HCC) Start: 11-13-2022 Refill Esdras Cash MD Work Phone: Hematology/Oncology Comment on above: Refill Request Start: 09-10-2022 End: 09-10-2022 Subsequent hospital visit by physician Arrival Time Radiology Work Phone: Radiology Pet CT Comment on above: 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 Faci lity:[facility] Start: 06-10-2022 Office outpatient vi sit 25 minutes Gildardo Lacy Work Phone: [facility] 250 DO Work Phone: Start: 06-10-[address] 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) Start: 04-15-2022 End: 04-16-[address] BELLA PEREIRA Facility:[facility] Start: 04-14-2022 End: 04-14-2022 Subsequent hospital visit by physician Arrival Time Radiology Work Phone: Radiology Pet CT Comment on above: 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] Start: 02-25-2022 End: 02-25-2022 Patient encounter procedure Kathrine Carpenter MD Work Phone: Radiation Oncology Comment on above: Oropharnyx cancer (H CC) (Primary Dx) Start: 02-18-2022 End: 02-18-2022 ambulatory Esdras Cash MD Work Phone: Hematology/Oncology Comment on above: 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 Gildardo Lacy Facility: Start: 11-26-2021 Refill Nathaly Biggs APRN.[employer] Work Phone: Radiation Oncology Comment on above: Refill Request Start: 11-25-2021 End: 11-26-[address] DOCTOR FERREIRA Facility:[facility] Start: 11-21-2021 End: 11-21-2021 Patient encounter procedure Kathrine Carpenter MD Work Phone: Radiation Oncology Comment on above: Oropharnyx cancer (H CC) (Primary Dx) Start: 11-20-2021 End: 11-20-[address] GILDARDO LACY Facility:[facility] Start: 10-04-2021 End: 10-04-[address] Work Phone: [facility] Start: 10-04-2021 End: 10-04-2021 Nutrition therapy Rylee Wilhelm RD Work Phone: Nutrition Therapy Comment on above: Nutrition Telephone Start: 10-03-2021 End: 10-03-2021 Nutrition therapy Esdras Cash MD Work Phone: Hematology/Oncology Comment on above: Oropharnyx cancer (H CC) (Primary Dx); Malaise and fatigue; Severe protein-calorie malnutrition (HCC) Start: 10-03-2021 End: 10-03-2021 Patient encounter procedure Esdras Cash MD Work Phone: [facility] Start: 09-26-2021 Patient encounter procedure Kathrine Carpenter MD Work Phone: [facility] Start: 09-26-2021 Radiation Oncology Note G Rickie Carpenter MD Work Phone: Radiation Oncology Comment on above: Completion Note Start: 09-25-2021 End: 09-25-[address] Work Phone: [facility] Start: 09-25-2021 End: 09-25-2021 Nutrition therapy Rylee Wilhelm RD Work Phone: Nutrition Therapy Comment on above: Nutrition Counseling Start: 09-23-2021 Telephone encounter Cynthia olivera RN Work Phone: Hematology/Oncology Comment on above: Care Coordination (D ischarge Follow Up) Start: 09-23-2021 End: 09-23-2021 ambulatory Esdras Cash MD Work Phone: Hematology/Oncology Comment on above: Oropharnyx cancer (H CC) (Primary Dx) Start: 09-23-2021 End: 09-23-2021 Patient encounter procedure Esrdas Cash MD Work Phone: [facility] Start: 09-19-2021 Telephone encounter Cynthia olivera RN Work Phone: Hematology/Oncology Comment on above: Care Coordination (H ospital Admission) Start: 09-19-2021 End: 09-20-2021 Evaluation and management of inpatient [facility] Start: 2021 Telephone encounter Cynthia olivera RN Work Phone: Hematology/Oncology Comment on above: Care Coordination (P t Update) Start: 09-17-2021 Telephone encounter Kathrine Carpenter MD Work Phone: Radiation Oncology Comment on above: Nausea (Radiation Ca ncelled) Start: 09-16-2021 Telephone encounter Amira GUERRAW H ematology/Oncology Comment on above: Social Work Services (Gas card program) Care Coordination (X ray) Start: 09-16-2021 End: 09-16-2021 ambulatory Chair Luly Wilson Work Phone: Hematology/Oncology Comment on above: Nausea (Primary Dx); Lower abdominal pain; Cancer of base of tongue (HCC) Lower abdominal pain (Primary Dx); Cancer of base of tongue (HCC); Nausea Start: 09-16-2021 End: 09-16-2021 Patient encounter procedure Anthony Weaver PA-C Work Phone: [facility] Comment on above: 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) Start: 09-09-2021 Telephone encounter Esdras coronado MD Work Phone: Hematology/Oncology Comment on above: Patient Update (neur opathy) Start: 09-09-2021 End: 09-09-[address] Work Phone: [facility] Start: 09-09-2021 End: 09-09-2021 Nutrition therapy Rylee Wilhelm RD Work Phone: Nutrition Therapy Comment on above: Nutrition Counseling 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); Severe protein-calorie malnutrition (HCC) Start: 09-09-2021 End: 09-09-2021 Patient encounter procedure Kathrine Carpenter MD Work Phone: Radiation Oncology Comment on above: 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) Start: 09-02-2021 End: 09-02-2021 ambulatory Anthony Weaver PA-C Work Phone: Hematology/Oncology Comment on above: Oropharnyx cancer (H CC) (Primary Dx) 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) Start: 09-02-2021 End: 09-02-2021 Patient encounter procedure Anthony Weaver PA-C Work Phone: [facility] Start: 08-26-2021 End: 08-26-2021 Patient encounter procedure Kathrine Carpenter MD Work Phone: Radiation Oncology Comment on above: 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) Start: 08-26-2021 End: 08-26-[address] Work Phone: [facility] Start: 08-26-2021 End: 08-26-2021 Nutrition therapy Rylee Wilhelm RD Work Phone: Nutrition Therapy Comment on above: Nutrition Assessment Oropharnyx cancer (H CC) (Primary Dx); Cancer of base of tongue (HCC); Oropharyngeal dysphagia; Chronic obstructive pulmonary disease, unspecified COPD type (HCC); Heart disease; Cancer related pain; Anxiety and depression; Severe protein-calorie malnutrition (HCC); Malaise and fatigue; Hypertension, unspecified type; Tachycardia Start: 08-19-2021 End: 08-19-[address] Work Phone: [facility] Comment on above: 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) Start: 08-19-2021 End: 08-19-2021 Nutrition therapy Nathaly Biggs APRN.CNP Work Phone: Hematology/Oncology Comment on above: Oropharnyx cancer (H CC) (Primary Dx); Cancer of base of tongue (HCC); Oropharyngeal dysphagia; Chronic obstructive pulmonary disease, unspecified COPD type (HCC); Heart disease; Cancer related pain; Anxiety and depression; Severe protein-calorie malnutrition (HCC); Malaise and fatigue; Hypertension, unspecified type; Tachycardia Nutrition Counseling Start: 08-19-2021 End: 08-19-2021 Patient encounter procedure Nathaly Biggs APRN.[employer] Work Phone: [facility] Comment on above: 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) Start: 08-15-2021 Telephone encounter Cynthia olivera RN Work Phone: Hematology/Oncology Comment on above: Care Coordination (C 1D1 Post Treatment Call) Start: 08-12-2021 Telephone encounter Cynthia olivera RN Work Phone: Hematology/Oncology Comment on above: Care Coordination (E ducation Material) Start: 08-12-2021 End: 08-12-2021 ambulatory Chair Virgilio Wilson Work Phone: Hematology/Oncology Comment on above: 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) Start: 08-12-2021 End: 08-12-2021 Patient encounter procedure Esdras Cash MD Work Phone: [facility] Start: 08-12-2021 End: 08-12-2021 Patient encounter procedure Kathrine Carpenter MD Work Phone: Radiation Oncology Comment on above: 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) Start: 08-09-2021 End: 08-09-2021 ambulatory Vale Chung PT, DPT Work Phone: [facility] Comment on above: Physical decondition ing (Primary Dx); Current smoker Start: 08-05-2021 ambulatory Cynthia villarreal RN Work Phone: Hematology/Oncology Comment on above: Chemotherapy Treatme nt (Carboplatin) Start: 08-02-2021 Patient encounter procedure [facility] Provider [facility] Department Start: 08-02-2021 Telephone encounter Cynthia olivera RN Work Phone: Hematology/Oncology Comment on above: Care Coordination (A ntiemetics) Start: 08-01-2021 End: 08-01-2021 ambulatory Esdras Cash MD Work Phone: Hematology/Oncology Comment on above: 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); Malaise and fatigue Start: 08-01-2021 End: 08-01-[address] Work Phone: [facility] Start: 08-01-2021 End: 08-01-2021 Nutrition therapy Rylee Wilhelm RD Work Phone: Nutrition Therapy Comment on above: Nutrition Assessment Start: 08-01-2021 End: 08-01-2021 Patient encounter procedure Esdras Cash MD Work Phone: [facility] Start: 08-01-2021 Radiation Oncology Note G Rickie Carpenter MD Work Phone: Radiation Oncology Comment on above: Simulation Note Treatment Planning Start: 08-01-2021 End: 08-01-2021 Subsequent hospital visit by physician Kathrine Carpenter MD Work Phone: Radiology Pet CT Start: 07-30-2021 End: 07-30-2021 Refill Esdras Cash MD Work Phone: Radiation Oncology Comment on above: Refill Request Oropharnyx cancer (H CC) (Primary Dx) Start: 05-28-2021 End: 05-30-2021 Evaluation and management of inpatient [facility] Facility:[facility] Start: 04-05-2021 End: 04-05-2021 Subsequent hospital visit by physician Arrival Time Radiology Work Phone: Radiology Pet CT Comment on above: Malignant neoplasm o f head, face and neck (HCC) [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] Start: 02-16-2018 End: 03-08-2018 Patient encounter procedure Evonne Ray Facility:[place] Start: 02-16-2018 End: 03-08-2018 Patient encounter procedure ERICHMARIA VICTORIA Levon RAY [facility] Start: 01-19-2018 End: 02-16-2018 Evaluation and management of inpatient [facility] Procedures Date Procedure Procedure Detail Performing Clinician Start: 06-10-2024 Ct upper extremity w/o contrast material Generic External Data Provider Start: 06-10-2024 Radex shoulder complete minimum 2 views Hebert Miguel MD Work Phone: Start: 12-15-[address] attenuation skull base mid-thigh Esdras Cash MD Work Phone: Start: 12-15-2023 End: 12-15-2023 Blood count complete auto&auto difrntl wbc Esdras Cash MD Work Phone: Start: 11-17-2023 Ecg routine ecg w/least 12 lds w/i&r Carmen Neely MD Work Phone: Start: 09-08-2023 Lipid 1996 panel - Serum or Plasma DENIA Carpenter MD Work Phone: Start: 05-06-2023 Lipid panel CARMEN NEELY Start: 02-11-[address] attenuation skull base mid-thigh Esdras Cash MD Work Phone: Start: 02-11-2023 Gluc bld gluc mntr dev cleared fda spec home use [facility] Provider Start: 09-10-2022 Ct thorax w/contrast material Kathrine Carpenter MD Work Phone: Start: 09-10-2022 Ct soft tissue neck w/o contrast material Kathrine Carpenter MD Work Phone: Start: 04-14-2022 Ct thorax w/contrast material Kathrine Carpenter MD Work Phone: Start: 04-14-2022 Ct soft tissue neck w/contrast material Kathrine Carpenter MD Work Phone: Start: 04-14-2022 CREATININE BLD Kathrine Carpenter MD Work Phone: Start: 01-13-2022 Echocardiography Gildardo Lacy Work Phone: Start: 12-23-[address] attenuation skull base mid-thigh Kathrine Carpenter MD Work Phone: Start: 12-23-2021 Gluc bld gluc mntr dev cleared fda spec home use [facility] Provider Start: 09-16-2021 Blood count complete auto&auto difrntl wbc Anthony Weaver PA-C Work Phone: Start: 08-26-2021 Blood count complete auto&auto difrntl wbc Nathaly Josemanuel BUCKNER Work Phone: Start: 04-05-[address] attenuation skull base mid-thigh G Сергей Carpenter MD Work Phone: Start: 04-05-2021 Gluc bld gluc mntr dev cleared fda spec home use [facility] Provider Start: 04-04-2020 Colonoscopy Jr. Stepanic DO Work Phone: Start: 03-01-2018 Swallowing funcj w/cineradiograpy/vidradiog EVONNE AGORO Start: 02-19-2018 Radiologic exam chest single view KAMALDEEN AGORO Start: 02-16-2018 Radiologic exam abdomen 1 view KAMALDEEN AGORO Start: 02-15-2018 POCT GLUCOSE RATUL RAYCHAUDHURI Start: 02-15-2018 MECHANICAL VENTILATION RATUL RAYCHAUDHUR I Start: 02-15-2018 NEBULIZER TX INTERMITTENT RATUL RAYZANDERUD HURI Start: 02-15-2018 MECHANICAL VENTILATION RATUL RAYCHAUDHUR I Start: 02-15-2018 Basic metabolic panel calcium total RATUL RAYCHAUDHURI Start: 02-15-2018 Blood count complete automated RATUL RAYCHAUDHURI Start: 02-15-2018 POC GLUCOSE FINGERSTICK RATUL RAYCHAUDHU RI Start: 02-15-2018 POCT GLUCOSE RATUL RAYCHAUDHURI Start: 02-15-2018 DISCHARGE PATIENT RATUL RAYCHAUDHURI Start: 02-15-2018 NEBULIZER TX INTERMITTENT RATUL RAYCHAUD HURI Start: 02-15-2018 POC GLUCOSE FINGERSTICK RATUL RAYCHAUDHU RI Start: 02-15-2018 POCT GLUCOSE RATUL RAYCHAUDHURI Start: 02-15-2018 END TIDAL CO2 CONTINUOUS RATUL RAYCHAUDH URI Start: 02-15-2018 INITIATE OXYGEN THERAPY PROTOCOL RATUL RAYCHAUDHURI Start: 02-15-2018 NEBULIZER TX INTERMITTENT RATUL RAYCHAUD HURI Start: 02-15-2018 Assay of magnesium RATUL RAYCHAUDHURI Start: 02-15-2018 Assay of phosphorus inorganic BIANCA RAYZANDERUDHURI Start: 02-15-2018 Basic metabolic panel calcium total BIANCA RAYCHAUDHURI Start: 02-15-2018 Blood count complete automated BIANCA RAYCHAUDHURI Start: 02-15-2018 POCT GLUCOSE BIANCA RAYCHAUDHURI Start: 02-15-2018 NEBULIZER TX INTERMITTENT BIANCA RAYZANDERUD HURI Start: 02-15-2018 POC GLUCOSE FINGERSTICK BIANCA RAYZANDERUDHU RI Start: 02-15-2018 WOUND CARE BIANCA RAYZANDERUDHURI Start: 02-15-2018 Radiologic exam chest single view BIANCA RAYCHAUDHURI Start: 02-14-2018 POCT GLUCOSE BIANCA RAYZANDERUDHURI Start: 02-14-2018 NEBULIZER TX INTERMITTENT BIANCA RAYZANDERUD HURI Start: 02-14-2018 POC GLUCOSE FINGERSTICK BIANCA RAYZANDERUDHU RI Start: 02-14-2018 POCT GLUCOSE BIANCA RAYZANDERUDHURI Start: 02-14-2018 NEBULIZER TX INTERMITTENT BIANCA RAYZANDERUD HURI Start: 02-14-2018 TRANSFER PATIENT BIANCA RAYZANDERUDHURI Start: 02-14-2018 POCT GLUCOSE BIANCA RAYZANDERUDHURI Start: 02-14-2018 Us retroperitoneal real time w/image limited BIANCA RAYZANDERUDHURI Start: 02-14-2018 END TIDAL CO2 CONTINUOUS BIANCA ODONNELLUDH URI Start: 02-14-2018 INITIATE OXYGEN THERAPY PROTOCOL BINACA RAYZANDERUDHURI Start: 02-14-2018 NEBULIZER TX INTERMITTENT BIANCA RAYZANDERUD HURI Start: 02-14-2018 Radiologic exam chest single view BIANCA RAYZANDERUDHURI Start: 02-14-2018 Basic metabolic panel calcium total BIANCA RAYZANDERUDHURI Start: 02-14-2018 Blood count complete automated BIANCA RAYCHAUDHURI Start: 02-14-2018 POCT GLUCOSE BIANCA RAYCHAUDHURI Start: 02-14-2018 NEBULIZER TX INTERMITTENT BIANCA RAYZANDERUD HURI Start: 02-14-2018 RESTRAINTS NON-VIOLENT OR [id number] BIANCA RAYZANDERUDHURI Start: 02-13-2018 POCT GLUCOSE BIANCA RAYCHAUDHURI Start: 02-13-2018 NEBULIZER TX INTERMITTENT BIANCA RAYZANDERUD HURI Start: 02-13-2018 POCT GLUCOSE BINACA ODONNELLUDYAMILETHRI Start: 02-13-2018 CULTURE BLOOD #1 BIANCA ODONNELLUDYAMILETHRI Start: 02-13-2018 NEBULIZER TX INTERMITTENT BIANCA ODONNELLUD CASIEI Start: 02-13-2018 Ct abdomen & pelvis w/o contrast material BIANCA ODONNELLUDHURI Start: 02-13-2018 POCT GLUCOSE BIANCA RAYZANDERUDHURI Start: 02-13-2018 END TIDAL CO2 CONTINUOUS BIANCA ODONNELLUDH URI Start: 02-13-2018 INITIATE OXYGEN THERAPY PROTOCOL BIANCA ODONNELLUDHURI Start: 02-13-2018 NEBULIZER TX INTERMITTENT BIANCA ODONNELLUD HURI Start: 02-13-2018 Radiologic exam abdomen 1 view BIANCA DE JESUSRI Start: 02-13-2018 Basic metabolic panel calcium total BIANCA ODONNELLUDYAMILETHRI Start: 02-13-2018 Blood count complete automated BIANCA DE JESUSRI Start: 02-13-2018 BRAIN NATRIURETIC PEPTIDE BIANCA ODONNELLUD CASIEI Start: 02-13-2018 POCT GLUCOSE BIANCA ODONNELLUDYAMILETHRI Start: 02-13-2018 NEBULIZER TX INTERMITTENT BIANCA ODONNELLUD CASIEI Start: 02-12-2018 POCT GLUCOSE BIANCA ODONNELLUDYAMILETHRI Start: 02-12-2018 NEBULIZER TX INTERMITTENT BIANCA ODONNELLUD CASIEI Start: 02-12-2018 POCT GLUCOSE BIANCA ODONNELLUDYAMILETHRI Start: 02-12-2018 NEBULIZER TX INTERMITTENT BIANCA ODONNELLUD CASIEI Start: 02-12-2018 ARTERIAL BLOOD GAS, POC BIANCA ODONNELLUDYAMILETH RI Start: 02-12-2018 POCT GLUCOSE BIANCA ODONNELLUDYAMILETHRI Start: 02-12-2018 END TIDAL CO2 CONTINUOUS BIANCA ALEXANDERH URI Start: 02-12-2018 INITIATE OXYGEN THERAPY PROTOCOL BIANCA ODONNELLUDYAMILETHRI Start: 02-12-2018 NEBULIZER TX INTERMITTENT BIANCA ODONNELLUD CASIEI Start: 02-12-2018 Radiologic exam chest single view BIANCA ODONNELLUDYAMILETHRI Start: 02-12-2018 ABG DRAW BIANCA ODONNELLUDYAMILETHRI Start: 02-12-2018 MISCELLANEOUS NURSING CARE ORDER (SPECIFY) BIANCA ODONNELLUDYAMILETHRI Start: 02-12-2018 Assay of magnesium BIANCA ODONNELLUDYAMILETHRI Start: 02-12-2018 Assay of phosphorus inorganic BIANCA DE JESUSRI Start: 02-12-2018 Basic metabolic panel calcium total BIANCA ODONNELLUDHURI Start: 02-12-2018 Blood count complete automated BIANCA RAYZANDERUDHURI Start: 02-12-2018 BRAIN NATRIURETIC PEPTIDE BIANCA ODONNELLUD CASIEI Start: 02-12-2018 POCT GLUCOSE BIANCA ODONNELLUDHURI Start: 02-12-2018 NEBULIZER TX INTERMITTENT BIANCA ODONNELLUD CASIEI Start: 02-12-2018 WOUND CARE BIANCA ODONNELLUDYAMILETHRI Start: 02-11-2018 POCT GLUCOSE BIANCA RAYZANDERUDHURI Start: 02-11-2018 NEBULIZER TX INTERMITTENT BIANCA ODONNELLUD CASIEI Start: 02-11-2018 POCT GLUCOSE BIANCA ODONNELLUDYAMILETHRI Start: 02-11-2018 NEBULIZER TX INTERMITTENT BIANCA ODONNELLUD CASIEI Start: 02-11-2018 POCT GLUCOSE BIANCA ODONNELLUDYAMILETHRI Start: 02-11-2018 END TIDAL CO2 CONTINUOUS BIANCA BRADY URI Start: 02-11-2018 INITIATE OXYGEN THERAPY PROTOCOL BIANCA ODONNELLUDYAMILETHRI Start: 02-11-2018 NEBULIZER TX INTERMITTENT BIANCA JASONI Start: 02-11-2018 RESTRAINTS NON-VIOLENT OR [id number] BIANCA DE JESUSRI Start: 02-11-2018 Assay of triglycerides BIANCA ODONNELLUDYAMILETHR I Start: 02-11-2018 Basic metabolic panel calcium total BIANCA DE JESUSRI Start: 02-11-2018 Blood count complete automated BIANCA ODONNELLUDYAMILETHRI Start: 02-11-2018 BRAIN NATRIURETIC PEPTIDE BIANCA ODONNELLUD CASIEI Start: 02-11-2018 POCT GLUCOSE BIANCA ODONNELLUDYAMILETHRI Start: 02-11-2018 NEBULIZER TX INTERMITTENT BIANCA ODONNELLUD CASIEI Start: 02-11-2018 CULTURE BLOOD #1 BIANCA ODONNELLUDHURI Start: 02-10-2018 POCT GLUCOSE BIANCA RAYZANDERUDHURI Start: 02-10-2018 NEBULIZER TX INTERMITTENT BIANCA ODONNELLUD CASIEI Start: 02-10-2018 MISCELLANEOUS NURSING CARE ORDER (SPECIFY) BIANCA RAYZANDERUDHURI Start: 02-10-2018 POCT GLUCOSE BIANCA RAYZANDERUDHURI Start: 02-10-2018 Radiologic exam abdomen 1 view BIANCA ODONNELLUDYAMILETHRI Start: 02-10-2018 NEBULIZER TX INTERMITTENT BIANCA JASONI Start: 02-10-2018 Transfusion blood/blood components BIANCA DE JESUSRI Start: 02-10-2018 POCT GLUCOSE BIANCA DE JESUSRI Start: 02-10-2018 END TIDAL CO2 CONTINUOUS BIANCA BRADY URI Start: 02-10-2018 INITIATE OXYGEN THERAPY PROTOCOL BIANCA DE JESUSRI Start: 02-10-2018 NEBULIZER TX INTERMITTENT BIANCA JASONI Start: 02-10-2018 Basic metabolic panel calcium total BIANCA DE JESUSRI Start: 02-10-2018 BRAIN NATRIURETIC PEPTIDE BIANCA JASONI Start: 02-10-2018 PREVIOUS SPECIMEN BIANCA DE JESUSRI Start: 02-10-2018 INITIATE RT PROTOCOL BIANCA DE JESUSRI Start: 02-10-2018 Blood count complete automated BIANCA DE JESUSRI Start: 02-10-2018 Drug tst prsmv instrmnt chem analyzers pr date BIANCA DE JESUSRI Start: 02-10-2018 POCT GLUCOSE BIANCA DE JESUSRI Start: 02-10-2018 NEBULIZER TX INTERMITTENT BIANCA JASONI Start: 02-10-2018 WOUND CARE BIANCA DE JESUSRI Start: 02-09-2018 POCT GLUCOSE BIANCA DE JESUSRI Start: 02-09-2018 NEBULIZER TX INTERMITTENT BIANCA MONET Start: 02-09-2018 EKG 12-LEAD BIANCA DE JESUSRI Start: 02-09-2018 EKG REPORT BIANCA DE JESUSRI Start: 02-09-2018 POCT GLUCOSE BIANCA DE JESUSRI Start: 02-09-2018 RESTRAINTS NON-VIOLENT OR [id number] BIANCA DE JESUSRI Start: 02-09-2018 NEBULIZER TX INTERMITTENT BIANCA JASONI Start: 02-09-2018 ARTERIAL BLOOD GAS, POC BIANCA DE JESUS RI Start: 02-09-2018 POCT GLUCOSE BIANCA DE JESUSRI Start: 02-09-2018 END TIDAL CO2 CONTINUOUS BIANCA BRADY URI Start: 02-09-2018 INITIATE OXYGEN THERAPY PROTOCOL BIANCA DE JESUSRI Start: 02-09-2018 NEBULIZER TX INTERMITTENT BIANCA JASONI Start: 02-09-2018 Basic metabolic panel calcium total BIANCA ODONNELLUDYAMILETHRI Start: 02-09-2018 Blood count complete automated BIANCA RAYZANDERUDHURI Start: 02-09-2018 BRAIN NATRIURETIC PEPTIDE BIANCA ODONNELLUD HURI Start: 02-09-2018 POCT GLUCOSE BIANCA ODONNELLUDHURI Start: 02-09-2018 NEBULIZER TX INTERMITTENT BIANCA ODONNELLUD HURI Start: 02-08-2018 POCT GLUCOSE BIANCA ODONNELLUDHURI Start: 02-08-2018 NEBULIZER TX INTERMITTENT BIANCA ODONNELLUD HURI Start: 02-08-2018 TRACH CARE BIANCA DE JESUSRI Start: 02-08-2018 POCT GLUCOSE BIANCA ODONNELLUDYAMILETHRI Start: 02-08-2018 NEBULIZER TX INTERMITTENT BIANCA JASONI Start: 02-08-2018 Echo [facility] r-t 2d w/wom-mode compl spec&colr d BIANCA DE JESUSRI Start: 02-08-2018 POCT GLUCOSE BIANCA DE JESUSRI Start: 02-08-2018 END TIDAL CO2 CONTINUOUS BIANCA BRADY URI Start: 02-08-2018 INITIATE OXYGEN THERAPY PROTOCOL BIANCA DE JESUSRI Start: 02-08-2018 NEBULIZER TX INTERMITTENT BIANCA JASONI Start: 02-08-2018 RESTRAINTS NON-VIOLENT OR [id number] BIANCA DE JESUSRI Start: 02-08-2018 Assay of magnesium BIANCA DE JESUSRI Start: 02-08-2018 Assay of phosphorus inorganic BIANCA DE JESUSRI Start: 02-08-2018 Basic metabolic panel calcium total BIANCA DE JESUSRI Start: 02-08-2018 Blood count complete automated BIANCA ODONNELLUDHURI Start: 02-08-2018 BRAIN NATRIURETIC PEPTIDE BIANCA ODONNELLUD CASIEI Start: 02-08-2018 ARTERIAL BLOOD GAS, POC BIANCA ODONNELLUDYAMILETH RI Start: 02-08-2018 POCT GLUCOSE BIANCA ODONNELLUDHURI Start: 02-08-2018 NEBULIZER TX INTERMITTENT BIANCA ODONNELLUD CASIEI Start: 02-08-2018 WOUND CARE BIANCA DE JESUSRI Start: 02-07-2018 POCT GLUCOSE BIANCA RAYZANDERUDHURI Start: 02-07-2018 NEBULIZER TX INTERMITTENT BIANCA ODONNELLUD HURI Start: 02-07-2018 POCT GLUCOSE BIANCA ODONNELLUDHURI Start: 02-07-2018 NEBULIZER TX INTERMITTENT BIANCA JASONI Start: 02-07-2018 Radiologic exam chest single view BIANCA DE JESUSRI Start: 02-07-2018 POCT GLUCOSE BIANCA ODONNELLUDHURI Start: 02-07-2018 END TIDAL CO2 CONTINUOUS BIANCA ODONNELLUDH URI Start: 02-07-2018 INITIATE OXYGEN THERAPY PROTOCOL BIANCA ODONNELLUDYAMILETHRI Start: 02-07-2018 NEBULIZER TX INTERMITTENT BIANCA JASONI Start: 02-07-2018 Basic metabolic panel calcium total BIANCA ODONNELLUDYAMILETHRI Start: 02-07-2018 Blood count complete automated BIANCA ODONNELLUDHURI Start: 02-07-2018 BRAIN NATRIURETIC PEPTIDE BIANCA JASONI Start: 02-07-2018 ARTERIAL BLOOD GAS, POC BIANCA ODONNELLUDYAMILETH RI Start: 02-07-2018 POCT GLUCOSE BIANCA ODONNELLUDYAMILETHRI Start: 02-07-2018 NEBULIZER TX INTERMITTENT BIANCA JASONI Start: 02-07-2018 HEMOGLOBIN AND HEMATOCRIT, BLOOD BIANCA DE JESUSRI Start: 02-07-2018 Assay of lactate BIANCA DE JESUSRI Start: 02-06-2018 POCT GLUCOSE BIANCA ODONNELLUDYAMILETHRI Start: 02-06-2018 NEBULIZER TX INTERMITTENT BIANCA JASONI Start: 02-06-2018 POCT GLUCOSE BIANCA ODONNELLUDYAMILETHRI Start: 02-06-2018 NEBULIZER TX INTERMITTENT BIANCA MONET Start: 02-06-2018 TRANSFUSE RED BLOOD CELLS BIANCA MONET Start: 02-06-2018 Assay of lactate BIANCA ODONNELLUDHURI Start: 02-06-2018 POCT GLUCOSE BIANCA ODONNELLUDYAMILETHRI Start: 02-06-2018 END TIDAL CO2 CONTINUOUS BIANCA ODONNELLUDH URI Start: 02-06-2018 INITIATE OXYGEN THERAPY PROTOCOL BIANCA DE JESUSRI Start: 02-06-2018 NEBULIZER TX INTERMITTENT BIANCA JASONI Start: 02-06-2018 Assay of amylase BIANCA ODONNELLUDHURI Start: 02-06-2018 Assay of lipase BIANCA ODONNELLUDYAMILETHRI Start: 02-06-2018 Basic metabolic panel calcium total BIANCA DE JESUSRI Start: 02-06-2018 Blood count complete automated RATUL RAYCHAUDHURI Start: 02-06-2018 BRAIN NATRIURETIC PEPTIDE BIANCA ODONNELLUD HURI Start: 02-06-2018 CK BIANCA RAYZANDERUDHURI Start: 02-06-2018 MYOGLOBIN, SERUM BIANCA ODONNELLUDHURI Start: 02-06-2018 ARTERIAL BLOOD GAS, POC BIANCA RAYZANDERUDHU RI Start: 02-06-2018 POCT GLUCOSE BIANCA ODONNELLUDHURI Start: 02-06-2018 NEBULIZER TX INTERMITTENT BIANCA ODONNELLUD HURI Start: 02-06-2018 INITIATE RT PROTOCOL BIANCA ODONNELLUDHURI Start: 02-06-2018 NEBULIZER TX INTERMITTENT BIANCA ODONNELLUD HURI Start: 02-05-2018 POCT GLUCOSE BIANCA ODONNELLUDHURI Start: 02-05-2018 POCT GLUCOSE BIANCA ODONNELLUDHURI Start: 02-05-2018 Basic metabolic panel calcium total BIANCA ODONNELLUDHURI Start: 02-05-2018 HEMOGLOBIN AND HEMATOCRIT, BLOOD BIANCA ODONNELLUDYAMILETHRI Start: 02-05-2018 RESTRAINTS NON-VIOLENT OR [id number] BIANCA ODONNELLUDYAMILETHRI Start: 02-05-2018 TRANSFUSE RED BLOOD CELLS BIANCA JASONI Start: 02-05-2018 TEG, RAPID CITRATED BIANCA ODONNELLUDYAMILETHRI Start: 02-05-2018 TRANSFUSE RED BLOOD CELLS BIANCA ODONNELLUD CASIEI Start: 02-05-2018 POCT GLUCOSE BIANCA ODONNELLUDYAMILETHRI Start: 02-05-2018 END TIDAL CO2 CONTINUOUS BIANCA BRADY URI Start: 02-05-2018 INITIATE OXYGEN THERAPY PROTOCOL BIANCA DE JESUSRI Start: 02-05-2018 Autol bld/component collj storage predeposited BIANCA DE JESUSRI Start: 02-05-2018 TYPE AND SCREEN BIANCA ODONNELLUDYAMILETHRI Start: 02-05-2018 PREPARE RBC (CROSSMATCH) BIANCA ODONNELLUDH URI Start: 02-05-2018 Basic metabolic panel calcium total BIANCA ODONNELLUDHURI Start: 02-05-2018 Blood count complete automated BIANCA RAYZANDERUDHURI Start: 02-05-2018 POCT GLUCOSE BIANCA ODONNELLUDHURI Start: 02-05-2018 ARTERIAL BLOOD GAS, POC BIACNA RAYZANDERUDHU RI Start: 02-05-2018 Radiologic exam chest single view BIANCA ODONNELLUDYAMILETHRI Start: 02-05-2018 POC BLOOD GAS BIANCA ODONNELLUDHURI Start: 02-05-2018 END TIDAL CO2 CONTINUOUS BIANCA BRADY URI Start: 02-05-2018 ARTERIAL BLOOD GAS, POC BIANCA RAYZANDERUDHU RI Start: 02-05-2018 POCT GLUCOSE BIANCA ODONNELLUDHURI Start: 02-05-2018 WOUND CARE BIANCA DE JESUSRI Start: 02-05-2018 Basic metabolic panel calcium total BIANCA RAYZANDERUDHURI Start: 02-04-2018 POCT GLUCOSE BIANCA ODONNELLUDHURI Start: 02-04-2018 OSMOLALITY, URINE BIANCA DE JESUSRI Start: 02-04-2018 Basic metabolic panel calcium total BIANCA ODONNELLUDHURI Start: 02-04-2018 OSMOLALITY BIANCA DE JESUSRI Start: 02-04-2018 POCT GLUCOSE BIANCA DE JESUSRI Start: 02-04-2018 AMMONIA BIANCA DE JESUSRI Start: 02-04-2018 Basic metabolic panel calcium total BIANCA ODONNELLUDHURI Start: 02-04-2018 Hepatic function panel BIANCA DE JESUSR I Start: 02-04-2018 Creatinine [Mass/volume] in Urine BIANCA DE JESUSRI Start: 02-04-2018 SODIUM, URINE, RANDOM BIANCA DE JESUSRI Start: 02-04-2018 RESTRAINTS NON-VIOLENT OR [id number] BIANCA DE JESUSRI Start: 02-04-2018 Assay of lactate BIANCA DE JESUSRI Start: 02-04-2018 POCT GLUCOSE BIANCA DE JESUSRI Start: 02-04-2018 INITIATE OXYGEN THERAPY PROTOCOL BIANCA ODONNELLUDHURI Start: 02-04-2018 PHARMACY CONSULT FOR RENAL DOSING BIANCA ODONNELLUDHURI Start: 02-04-2018 Basic metabolic panel calcium total BIANCA ODONNELLUDYAMILETHRI Start: 02-04-2018 Blood count complete automated BIANCA DE JESUSRI Start: 02-04-2018 ARTERIAL BLOOD GAS, POC BIANCA DE JESUS RI Start: 02-04-2018 ABG DRAW BIANCA DE JESUSRI Start: 02-04-2018 POCT GLUCOSE BIANCA ODONNELLUDHURI Start: 02-03-2018 POCT GLUCOSE BIANCA ODONNELLUDHURI Start: 02-03-2018 POCT GLUCOSE BIANCA ODONNELLUDHURI Start: 02-03-2018 Assay of magnesium BIANCA ODONNELLUDHURI Start: 02-03-2018 Assay of phosphorus inorganic BIANCA ODONNELLUDHURI Start: 02-03-2018 Sodium serum plasma or whole blood BIANCA ODONNELLUDHURI Start: 02-03-2018 RESTRAINTS NON-VIOLENT OR [id number] BIANCA ODONNELLUDHURI Start: 02-03-2018 POCT GLUCOSE BIANCA ODONNELLUDHURI Start: 02-03-2018 INITIATE OXYGEN THERAPY PROTOCOL BIANCA ALEXANDERHURI Start: 02-03-2018 Assay of magnesium BIANCA ODONNELLUDHURI Start: 02-03-2018 Assay of phosphorus inorganic BIANCA ODONNELLUDHURI Start: 02-03-2018 Basic metabolic panel calcium total BIANCA ODONNELLUDHURI Start: 02-03-2018 Blood count complete automated BIANCA ODONNELLUDHURI Start: 02-03-2018 POCT GLUCOSE BIANCA ODONNELLUDHURI Start: 02-03-2018 Assay of lactate BIANCA ODONNELLUDYAMILETHRI Start: 02-03-2018 Basic metabolic panel calcium total BIANCA ODONNELLUDHURI Start: 02-03-2018 Blood count complete automated BIANCA ODONNELLUDHURI Start: 02-03-2018 Radiologic exam chest single view BIANCA DE JESUSRI Start: 02-03-2018 ARTERIAL BLOOD GAS, POC BIANCA ODONNELLUDHU RI Start: 02-03-2018 NOTIFICATION PANEL, POC BIANCA ODONNELLUDHU RI Start: 02-03-2018 POCT GLUCOSE BIANCA ODONNELLUDHURI Start: 02-03-2018 POC BLOOD GAS BIANCA ODONNELLUDHURI Start: 02-03-2018 Sodium serum plasma or whole blood BIANCA ODONNELLUDHURI Start: 02-03-2018 WOUND CARE BIANCA ODONNELLUDHURI Start: 02-02-2018 PHARMACY TO DOSE VANCOMYCIN BIANCA CHARLESRI Start: 02-02-2018 POCT GLUCOSE BIANCA ODONNELLUDHURI Start: 02-02-2018 POCT GLUCOSE BIANCA ODONNELLUDHURI Start: 02-02-2018 Sodium serum plasma or whole blood BIANCA ODONNELLUDHURI Start: 02-02-2018 Sodium serum plasma or whole blood BIANCA ODONNELLUDHURI Start: 02-02-2018 Creatinine [Mass/volume] in Urine BIANCA DE JESUSRI Start: 02-02-2018 OSMOLALITY, URINE BIANCA ODONNELLUDYAMILETHRI Start: 02-02-2018 SODIUM, URINE, RANDOM BIANCA ODONNELLUDYAMILETHRI Start: 02-02-2018 IP CONSULT TO NEPHROLOGY BIANCA BRADY URI Start: 02-02-2018 POCT GLUCOSE BIANCA ODONNELLUDHURI Start: 02-02-2018 INITIATE OXYGEN THERAPY PROTOCOL BIANCA DE JESUSRI Start: 02-02-2018 RESTRAINTS NON-VIOLENT OR [id number] BIANCA ODONNELLUDYAMILETHRI Start: 02-02-2018 Basic metabolic panel calcium total BIANCA DE JESUSRI Start: 02-02-2018 Blood count complete automated BIANCA DE JESUSRI Start: 02-02-2018 CALCIUM, IONIZED BIANCA DE JESUSRI Start: 02-02-2018 OSMOLALITY BIANCA DE JESUSRI Start: 02-02-2018 POCT GLUCOSE BIANCA DE JESUSRI Start: 02-02-2018 Sodium serum plasma or whole blood BIANCA DE JESUSRI Start: 02-01-2018 POCT GLUCOSE BIANCA ODONNELLUDYAMILETHRI Start: 02-01-2018 Sodium serum plasma or whole blood BIANCA DE JESUSRI Start: 02-01-2018 POCT GLUCOSE BIANCA ODONNELLUDYAMILETHRI Start: 02-01-2018 ARTERIAL BLOOD GAS, POC BIANCA DE JESUS RI Start: 02-01-2018 POC GLUCOSE FINGERSTICK BIANCA DE JESUS RI Start: 02-01-2018 Radiologic exam chest single view BIANCA DE JESUSRI Start: 02-01-2018 POC BLOOD GAS BIANCA DE JESUSRI Start: 02-01-2018 TRANSFER PATIENT BIANCA DE JESUSRI Start: 02-01-2018 ORAL CARE BIANCA DE JESUSRI Start: 02-01-2018 Basic metabolic panel calcium total BIANCA DE JESUSRI Start: 02-01-2018 Blood count complete auto&auto difrntl wbc BIANCA DE JESUSRI Start: 02-01-2018 RESTRAINTS NON-VIOLENT OR [id number] BIANCA DE JESUSRI Start: 02-01-2018 NURSING COMMUNICATION BIANCA DE JESUSRI Start: 02-01-2018 SUPPLY REQUEST BIANCA DE JESUSRI Start: 02-01-2018 WOUND CARE BIANCA DE JESUSRI Start: 02-01-2018 TRANSFER PATIENT BIANCA DE JESUSRI Start: 02-01-2018 POCT GLUCOSE BIANCA DE JESUSRI Start: 02-01-2018 INITIATE OXYGEN THERAPY PROTOCOL BIANCA DE JESUSRI Start: 02-01-2018 POCT GLUCOSE BIANCA DE JESUSRI Start: 02-01-2018 POC GLUCOSE FINGERSTICK BIANCA DE JESUS RI Start: 01-31-2018 POCT GLUCOSE BIANCA ODONNELLUDYAMILETHRI Start: 01-31-2018 POC GLUCOSE FINGERSTICK BIANCA ODONNELLUDYAMILETH RI Start: 01-31-2018 POCT GLUCOSE BIANCA DE JESUSRI Start: 01-31-2018 POC GLUCOSE FINGERSTICK BIANCA DE JESUS RI Start: 01-31-2018 POCT GLUCOSE BIANCA ED JESUSRI Start: 01-31-2018 INITIATE OXYGEN THERAPY PROTOCOL BIANCA DE JESUSRI Start: 01-31-2018 Assay of magnesium BIANCA DE JESUSRI Start: 01-31-2018 Assay of phosphorus inorganic BIANCA DE JESUSRI Start: 01-31-2018 Basic metabolic panel calcium total BIANCA DE JESUSRI Start: 01-31-2018 Blood count complete auto&auto difrntl wbc BIANCA DE JESUSRI Start: 01-31-2018 RESTRAINTS NON-VIOLENT OR [id number] BIANCA DE JESUSRI Start: 01-31-2018 POC GLUCOSE FINGERSTICK BIANCA DE JESUS RI Start: 01-31-2018 POCT GLUCOSE BIANCA DE JESUSRI Start: 01-31-2018 Urnls dip stick/tablet reagent auto microscopy BIANCA DE JESUSRI Start: 01-31-2018 POC GLUCOSE FINGERSTICK BIANCA DE JESUS RI Start: 01-30-2018 POCT GLUCOSE BIANCA ODONNELLUDYAMILETHRI Start: 01-30-2018 POCT GLUCOSE BIANCA ODONNELLUDYAMILETHRI Start: 01-30-2018 ANAEROBIC AND AEROBIC CULTURE BIANCA DE JESUSRI Start: 01-30-2018 POC GLUCOSE FINGERSTICK BIANCA DE JESUS RI Start: 01-30-2018 Radiologic exam chest single view BIANCA DE JESUSRI Start: 01-30-2018 POCT GLUCOSE BIANCA DE JESUSRI Start: 01-30-2018 INITIATE OXYGEN THERAPY PROTOCOL BIANCA COSTA Start: 01-30-2018 CULTURE BLOOD #1 BIANCA COSTA Start: 01-30-2018 Assay of magnesium BIANCA DE JESUSRI Start: 01-30-2018 Assay of phosphorus inorganic BIANCA DE JESUSRI Start: 01-30-2018 Blood count complete auto&auto difrntl wbc BIANCA DE JESUSRI Start: 01-30-2018 Comprehensive metabolic panel BIANCA DE JESUSRI Start: 01-30-2018 POC GLUCOSE FINGERSTICK BIANCA DE JESUS RI Start: 01-30-2018 POCT GLUCOSE BIANCA DE JESUSRI Start: 01-30-2018 POC GLUCOSE FINGERSTICK BIANCA DE JESUS RI Start: 01-30-2018 DAILY WEIGHTS BIANCA COSTA Start: 01-29-2018 POCT GLUCOSE BIANCA DE JESUSRI Start: 01-29-2018 Assay of triglycerides BIANCA DE JESUSR I Start: 01-29-2018 Ct abdomen & pelvis w/contrast material BIANCA COSTA Start: 01-29-2018 POCT GLUCOSE BIANCA DE JESUSRI Start: 01-29-2018 WOUND CARE BIANCA COSTA Start: 01-29-2018 MISCELLANEOUS NURSING CARE ORDER (SPECIFY) BIANCA COSTA Start: 01-29-2018 NURSING COMMUNICATION BIANCA COSTA Start: 01-29-2018 PARENTERAL NUTRITION INDICATIONS BIANCA COSTA Start: 01-29-2018 PARENTERAL NUTRITION INFUSION CHECK BIANCA COSTA Start: 01-29-2018 IP CONSULT TO DIETITIAN BIANCA DE JESUS RI Start: 01-29-2018 RESTRAINTS NON-VIOLENT OR [id number] BIANCA COSTA Start: 01-29-2018 AMMONIA BIANCA COSTA Start: 01-29-2018 Assay of triglycerides BIANCA DE JESUSR I Start: 01-29-2018 IP CONSULT TO DIETITIAN BIANCA DE JESUS RI Start: 01-29-2018 NOTIFY PHYSICIAN (SPECIFY) BIANCA BRUCEURI Start: 01-29-2018 NURSING COMMUNICATION BIANCA DE JESUSRI Start: 01-29-2018 PARENTERAL NUTRITION INDICATIONS BIANCA DE JESUSRI Start: 01-29-2018 POCT GLUCOSE BIANCA ODONNELLUDYAMILETHRI Start: 01-29-2018 INITIATE OXYGEN THERAPY PROTOCOL BIANCA RAYZANDERUDHURI Start: 01-29-2018 Radiologic exam chest single view BIANCA RAYZANDERUDHURI Start: 01-29-2018 Basic metabolic panel calcium total BIANCA RAYZANDERUDHURI Start: 01-29-2018 Blood count complete auto&auto difrntl wbc BIANCA RAYZANDERUDHURI Start: 01-29-2018 BRAIN NATRIURETIC PEPTIDE BIANCA ODONNELLUD CASIEI Start: 01-28-2018 Basic metabolic panel calcium total BIANCA ODONNELLUDYAMILETHRI Start: 01-28-2018 CULTURE BLOOD #1 BIANCA ODONNELLUDYAMILETHRI Start: 01-28-2018 TRANSFER PATIENT BIANCA DE JESUSRI Start: 01-28-2018 INSERT PICC LINE BIANCA DE JESUSRI Start: 01-28-2018 MISCELLANEOUS NURSING CARE ORDER (SPECIFY) BIANCA DE JESUSRI Start: 01-28-2018 IP CONSULT TO INFECTIOUS DISEASES BIANCA DE JESUSRI Start: 01-28-2018 INITIATE OXYGEN THERAPY PROTOCOL BIANCA DE JESUSRI Start: 01-28-2018 NURSING COMMUNICATION BIANCA DE JESUSRI Start: 01-28-2018 Assay of magnesium BIANCA DE JESUSRI Start: 01-28-2018 Assay of phosphorus inorganic BIANCA DE JESUSRI Start: 01-28-2018 Basic metabolic panel calcium total BIANCA ODONNELLUDYAMILETHRI Start: 01-28-2018 Blood count complete auto&auto difrntl wbc BIANCA ODONNELLUDYAMILETHRI Start: 01-28-2018 C-reactive protein BIANCA ODONNELLUDYAMILETHRI Start: 01-28-2018 Hepatic function panel BIANCA RAYZANDERUDYAMILETHR I Start: 01-28-2018 PREALBUMIN BIANCA ODONNELLUDYAMILETHRI Start: 01-28-2018 TRANSFERRIN BIANCA RAYZANDERUDYAMILETHRI Start: 01-28-2018 TSH WITH REFLEX BIANCA RAYZANDERUDHURI Start: 01-28-2018 Ct abdomen & pelvis w/contrast material BIANCA ODONNELLUDHURI Start: 01-27-2018 RESTRAINTS NON-VIOLENT OR [id number] BIANCA ODONNELLUDYAMILETHRI Start: 01-27-2018 Radiologic exam abdomen 1 view BIANCA RAYZANDERUDHURI Start: 01-27-2018 Radiologic exam abdomen 1 view BIANCA RAYCHAUDHURI Start: 01-27-2018 Radex spine lumbosacral 2/3 views BIANCA RAYCHAUDHURI Start: 01-27-2018 Radiologic exam chest single view RATPEDRO RAYCHAUDHURI Start: 01-27-2018 INITIATE OXYGEN THERAPY PROTOCOL BIANCA RAYCHAUDHURI Start: 01-27-2018 Assay of magnesium BIANCA RAYCHAUDHURI Start: 01-27-2018 Assay of phosphorus inorganic BIANCA RAYCHAUDHURI Start: 01-27-2018 Basic metabolic panel calcium total BIANCA RAYCHAUDHURI Start: 01-27-2018 Blood count complete auto&auto difrntl wbc BIANCA RAYCHAUDHURI Start: 01-27-2018 VANCOMYCIN, RANDOM BIANCA RAYCHAUDHURI Start: 01-26-2018 CALCIUM, IONIZED BIANCA RAYCHAUDHURI Start: 01-26-2018 Potassium serum plasma/whole blood BIANCA RAYCHAUDHURI Start: 01-26-2018 Potassium serum plasma/whole blood BIANCA RAYZANDERUDHURI Start: 01-26-2018 VANCOMYCIN, TROUGH BIANCA RAYCHAUDHURI Start: 01-26-2018 IP CONSULT TO IV TEAM BIANCA RAYZANDERUDHURI Start: 01-26-2018 INITIATE OXYGEN THERAPY PROTOCOL BIANCA RAYZANDERUDHURI Start: 01-26-2018 Radiologic exam abdomen 1 view BIANCA RAYCHAUDHURI Start: 01-26-2018 Radiologic exam chest single view BIANCA RAYCHAUDHURI Start: 01-26-2018 Assay of magnesium BIANCA RAYZANDERUDHURI Start: 01-26-2018 Assay of phosphorus inorganic BIANCA RAYZANDERUDHURI Start: 01-26-2018 Basic metabolic panel calcium total BIANCA RAYCHAUDHURI Start: 01-26-2018 Blood count complete auto&auto difrntl wbc BIANCA RAYZANDERUDHURI Start: 01-26-2018 BRAIN NATRIURETIC PEPTIDE BIANCA RAYZANDERUD HURI Start: 01-26-2018 CALCIUM, IONIZED BIANCA RAYCHAUDHURI Start: 01-26-2018 Potassium serum plasma/whole blood BIANCA RAYCHAUDHURI Start: 01-25-2018 RESTRAINTS NON-VIOLENT OR [id number] BIANCA RAYZANDERUDHURI Start: 01-25-2018 Potassium serum plasma/whole blood BIANCA RAYCHAUDHURI Start: 01-25-2018 Ct abdomen & pelvis w/contrast material BIANCA ODONNELLUDHURI Start: 01-25-2018 TRANSFER PATIENT BIANCA RAYZANDERUDHURI Start: 01-25-2018 EKG 12-LEAD BIANCA RAYCHAUDHURI Start: 01-25-2018 EKG REPORT BIANCA RAYZANDERUDHURI Start: 01-25-2018 Radiologic exam chest single view BIANCA RAYCHAUDHURI Start: 01-25-2018 Blood count complete auto&auto difrntl wbc BIANCA RAYZANDERUDHURI Start: 01-25-2018 VANCOMYCIN, TROUGH BIANCA RAYZANDERUDHURI Start: 01-25-2018 INITIATE OXYGEN THERAPY PROTOCOL BIANCA RAYZANDERUDHURI Start: 01-25-2018 Assay of magnesium BIANCA RAYZANDERUDHURI Start: 01-25-2018 Assay of phosphorus inorganic BIANCA RAYZANDERUDHURI Start: 01-25-2018 Basic metabolic panel calcium total BIANCA RAYZANDERUDHURI Start: 01-25-2018 CALCIUM, IONIZED BIANCA RAYZANDERUDHURI Start: 01-25-2018 Potassium serum plasma/whole blood BIANCA RAYZANDERUDHURI Start: 01-24-2018 RESTRAINTS NON-VIOLENT OR [id number] BIANCA RAYZANDERUDHURI Start: 01-24-2018 Potassium serum plasma/whole blood BIANCA RAYZANDERUDHURI Start: 01-24-2018 INITIATE OXYGEN THERAPY PROTOCOL BIANCA ODONNELLUDHURI Start: 01-24-2018 Assay of magnesium BIANCA ODONNELLUDHURI Start: 01-24-2018 Assay of phosphorus inorganic BIANCA RAYZANDERUDHURI Start: 01-24-2018 Basic metabolic panel calcium total BIANCA RAYZANDERUDHURI Start: 01-24-2018 Blood count complete automated BIANCA RAYZANDERUDHURI Start: 01-24-2018 CALCIUM, IONIZED BIANCA RAYCHAUDHURI Start: 01-24-2018 Radiologic exam chest single view BIANCA RAYZANDERUDHURI Start: 01-24-2018 VANCOMYCIN, TROUGH BIANCA RAYZANDERUDHURI Start: 01-24-2018 Potassium serum plasma/whole blood BIANCA RAYZANDERUDHURI Start: 01-24-2018 ARTERIAL BLOOD GAS, POC BIANCA RAYZANDERUDHU RI Start: 01-24-2018 Blood gases any combination ph pco2 po2 co2 hco3 BIANCA RAYZANDERUDHURI Start: 01-23-2018 CALCIUM, IONIZED BIANCA RAYZANDERUDHURI Start: 01-23-2018 Assay of magnesium BIANCA DE JESUSRI Start: 01-23-2018 CALCIUM, IONIZED BIANCA DE JESUSRI Start: 01-23-2018 EKG 12-LEAD BIANCA ODONNELLUDYAMILETHRI Start: 01-23-2018 EKG REPORT BIANCA ODONNELLUDYAMILETHRI Start: 01-23-2018 ARTERIAL BLOOD GAS, POC BIANCA ODONNELLUDYAMILETH RI Start: 01-23-2018 EKG 12-LEAD BIANCA ODONNELLUDYAMILETHRI Start: 01-23-2018 EKG REPORT BIANCA ODONNELLUDYAMILETHRI Start: 01-23-2018 Radiologic exam chest single view BIANCA DE JESUSRI Start: 01-23-2018 INITIATE OXYGEN THERAPY PROTOCOL BIANCA DE JESUSRI Start: 01-23-2018 Blood gases any combination ph pco2 po2 co2 hco3 BIANCA DE JESUSRI Start: 01-23-2018 Assay of magnesium BIANCA DE JESUSRI Start: 01-23-2018 Basic metabolic panel calcium total BIANCA DE JESUSRI Start: 01-23-2018 Blood count complete automated BIANCA DE JESUSRI Start: 01-23-2018 BRAIN NATRIURETIC PEPTIDE BIANCA JASONI Start: 01-23-2018 Reticulated platelet assay BIANCA OLIVEROS Start: 01-23-2018 VANCOMYCIN, TROUGH BIANCA DE JESUSRI Start: 01-23-2018 VITAMIN D 25 HYDROXY BIANCA DE JESUSRI Start: 01-22-2018 Blood gases any combination ph pco2 po2 co2 hco3 BIANCA DE JESUSRI Start: 01-22-2018 Comprehensive metabolic panel BIANCA DE JESUSRI Start: 01-22-2018 Blood count complete auto&auto difrntl wbc BIANCA DE JESUSRI Start: 01-22-2018 ARTERIAL BLOOD GAS, POC BIANCA ODONNELLUDHU RI Start: 01-22-2018 Blood gases any combination ph pco2 po2 co2 hco3 BIANCA ODONNELLUDYAMILETHRI Start: 01-22-2018 EKG 12-LEAD BIANCA ODONNELLUDYAMILETHRI Start: 01-22-2018 EKG REPORT BIANCA DE JESUSRI Start: 01-22-2018 ARTERIAL BLOOD GAS, POC BIANCA ODONNELLUDYAMILETH RI Start: 01-22-2018 Blood gases any combination ph pco2 po2 co2 hco3 BIANCA DE JESUSRI Start: 01-22-2018 IP CONSULT TO DIETITIAN BIANCA DE JESUS RI Start: 01-22-2018 PHARMACY TO DOSE VANCOMYCIN BIANCA KEYES Start: 01-22-2018 Echo tthrc r-t 2d w/wom-mode compl spec&colr d BIANCA DE JESUSRI Start: 01-22-2018 ARTERIAL BLOOD GAS, POC BIANCA DE JESUS RI Start: 01-22-2018 INITIATE OXYGEN THERAPY PROTOCOL BIANCA DE JESUSRI Start: 01-22-2018 ARTERIAL BLOOD GAS, POC BIANCA DE JESUS RI Start: 01-22-2018 Blood gases any combination ph pco2 po2 co2 hco3 BIANCA DE JESUSRI Start: 01-22-2018 Radiologic exam chest single view BIANCA DE JESUSRI Start: 01-22-2018 Assay of magnesium BIANCA COSTA Start: 01-22-2018 Assay of phosphorus inorganic BIANCA DE JESUSRI Start: 01-22-2018 Basic metabolic panel calcium total BIANCA COSTA Start: 01-22-2018 Blood count complete automated BIANCA COSTA Start: 01-22-2018 BRAIN NATRIURETIC PEPTIDE BIANCA MONET Start: 01-22-2018 Reticulated platelet assay BIANCA OLIVEROS Start: 01-22-2018 INITIATE OXYGEN THERAPY PROTOCOL BIANCA COSTA Start: 01-21-2018 LACTATE DEHYDROGENASE, BODY FLUID BIANCA DE JESUSRI Start: 01-21-2018 PROTEIN, BODY FLUID BIANCA DE JESUSRI Start: 01-21-2018 Radiologic exam chest single view BIANCA DE JESUSRI Start: 01-21-2018 LACTATE DEHYDROGENASE BIANCA DE JESUSRI Start: 01-21-2018 Protein xcpt refractometry serum plasma/whl bld BIANCA DE JESUSRI Start: 01-21-2018 Thoracentesis needle/cath pleura w/imaging BIANCA COSTA Start: 01-21-2018 VITAL SIGNS BIANCA COSTA Start: 01-21-2018 MISCELLANEOUS NURSING CARE ORDER (SPECIFY) BIANCA DE JESUSRI Start: 01-21-2018 NURSING COMMUNICATION BIANCA COSTA Start: 01-21-2018 TURN PATIENT BIANCA DE JESUSRI Start: 01-21-2018 ELEVATE HEELS OFF OF BED RATUL RAYCHAUDH URI Start: 01-21-2018 BRAIN NATRIURETIC PEPTIDE BIANCA ODONNELLUD HURI Start: 01-21-2018 Creatinine [Mass/volume] in Urine BIANCA RAYCHAUDHURI Start: 01-21-2018 SODIUM, URINE, RANDOM BIANCA RAYCHAUDHURI Start: 01-21-2018 Radiologic exam chest single view RATPEDRO RAYCHAUDHURI Start: 01-21-2018 Radiologic exam abdomen 1 view RATPEDRO RAYCHAUDHURI Start: 01-21-2018 TRANSFER PATIENT RATPEDRO RAYCHAUDHURI Start: 01-21-2018 Assay of lactate RATPEDRO RAYCHAUDHURI Start: 01-21-2018 Assay of magnesium BIANCA RAYZANDERUDHURI Start: 01-21-2018 Assay of phosphorus inorganic BIANCA RAYZANDERUDYAMILETHRI Start: 01-21-2018 Basic metabolic panel calcium total BIANCA RAYZANDERUDHURI Start: 01-21-2018 Blood count complete automated BIANCA RAYZANDERUDHURI Start: 01-21-2018 CALCIUM, IONIZED BIANCA RAYZANDERUDHURI Start: 01-21-2018 Reticulated platelet assay BIANCA ODONNELLU JANISURI Start: 01-20-2018 FALL PRECAUTIONS RATPEDRO RAYZANDERUDHURI Start: 01-20-2018 EXTUBATION RATPEDRO RAYZANDERUDHURI Start: 01-20-2018 Microscopic urinalysis BIANCA ODONNELLUDYAMILETHR I Start: 01-20-2018 URINE RT REFLEX TO CULTURE BIANCA ODONNELLU ARLIN Start: 01-20-2018 INPATIENT CONSULT TO BILLET STRAIGHTENER BIANCA RAYZANDERUDHURI Start: 01-20-2018 Assay of lactate BIANCA RAYZANDERUDHURI Start: 01-20-2018 Assay of magnesium BIANCA ODONNELLUDYAMILETHRI Start: 01-20-2018 Mri spinal canal cervical w/o contrast matrl BIANCA RAYCHAUDHURI Start: 01-20-2018 Ct lumbar spine w/o contrast material RATPEDRO RAYCHAUDHURI Start: 01-20-2018 Ct thoracic spine w/o contrast material BIANCA RAYCHAUDHURI Start: 01-20-2018 RHYTHM STRIP REPORT BIANCA RAYCHAUDHURI Start: 01-20-2018 TRANSFUSE PLATELETS BIANCA RAYCHAUDHURI Start: 01-20-2018 Radiologic exam chest single view BIANCA RAYCHAUDHURI Start: 01-20-2018 ARTERIAL BLOOD GAS, POC BIANCA RAYCHAUDHU RI Start: 01-20-2018 Assay of lactate RATPEDRO RAYCHAUDHURI Start: 01-20-2018 Assay of magnesium RATPEDRO RAYCHAUDHURI Start: 01-20-2018 Assay of phosphorus inorganic BIANCA RAYCHAUDHURI Start: 01-20-2018 Basic metabolic panel calcium total BIANCA RAYZANDERUDHURI Start: 01-20-2018 Blood count complete auto&auto difrntl wbc BIANCA RAYZANDERUDHURI Start: 01-20-2018 CALCIUM, IONIZED BIANCA RAYCHAUDHURI Start: 01-20-2018 Mri spinal canal lumbar w/o contrast material BIANCA ODONNELLUDHURI Start: 01-20-2018 Transfusion blood/blood components BIANCA ODONNELLUDHURI Start: 01-20-2018 RESTRAINTS NON-VIOLENT OR [id number] BIANCA RAYCHAUDHURI Start: 01-20-2018 ARTERIAL BLOOD GAS, POC BIANCA ODONNELLUDHU RI Start: 01-20-2018 TRANSFUSE FRESH FROZEN PLASMA BIANCA ODONNELLUDHURI Start: 01-20-2018 Assay of lactate BIANCA RAYZANDERUDHURI Start: 01-20-2018 Assay of magnesium BIANCA ODONNELLUDHURI Start: 01-20-2018 Assay of phosphorus inorganic BIANCA RAYZANDERUDHURI Start: 01-20-2018 Basic metabolic panel calcium total BIANCA RAYZANDERUDHURI Start: 01-20-2018 Blood count complete auto&auto difrntl wbc BIANCA RAYZANDERUDHURI Start: 01-20-2018 CALCIUM, IONIZED BIANCA RAYZANDERUDHURI Start: 01-20-2018 Hepatic function panel BIANCA RAYZANDERUDHUR I Start: 01-20-2018 TEG, RAPID CITRATED BIANCA RAYZANDERUDHURI Start: 01-20-2018 MRSA DNA PROBE, NASAL BIANCA RAYCHAUDHURI Start: 01-20-2018 TRANSFUSE FRESH FROZEN PLASMA BIANCA ODONNELLUDHURI Start: 01-20-2018 Radiologic exam chest single view BIANCA RAYZANDERUDHURI Start: 01-20-2018 Blood gases any combination ph pco2 po2 co2 hco3 BIANCA RAYCHAUDHURI Start: 01-20-2018 ABDOMINAL BINDER BIANCA RAYCHAUDHURI Start: 01-20-2018 FULL CODE BIANCA RAYCHAUDHURI Start: 01-20-2018 OT EVAL AND TREAT RATUL RAYCHAUDHURI Start: 01-20-2018 PLACE INTERMITTENT PNEUMATIC COMPRESSION DEVICE BIANCA DE JESUSRI Start: 01-20-2018 PT EVAL AND TREAT BIANCA DE JESUSRI Start: 01-20-2018 REASON FOR NO CHEMICAL VTE PROPHYLAXIS BIANCA ODONNELLUDYAMILETHRI Start: 01-20-2018 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 AND TREAT BIANCA DE JESUSRI Start: 01-20-2018 VITAL SIGNS BIANCA DE JESUSRI Start: 01-20-2018 TRANSFER PATIENT BIANCA DE JESUSRI Start: 01-20-2018 PLATELET COUNT BIANCA DE JESUSRI Start: 01-20-2018 TEG, RAPID CITRATED BIANCA DE JESUSRI Start: 01-20-2018 CALCIUM, IONIZED BIANCA DE JESUSRI Start: 01-20-2018 FIBRINOGEN BIANCA COSTA Start: 01-20-2018 OPEN HEART PANEL BIANCA DE JESUSRI Start: 01-20-2018 Prothrombin time BIANCA COSTA Start: 01-20-2018 Thromboplastin time partial plasma/whole blood BIANCA DE JESUSRI Start: 01-19-2018 PATIENT STATUS (FROM ED OR OR/PROCEDURAL) BIANCA DE JESUSRI Start: 01-19-2018 SURGICAL PATHOLOGY BIANCA COSTA Start: 01-19-2018 TRANSFUSE RED BLOOD CELLS BIANCA MONET Start: 01-19-2018 PREPARE RBC (CROSSMATCH) BIANCA BRADY URI Start: 01-19-2018 CALCIUM, IONIZED BIANCA DE JESUSRI Start: 01-19-2018 OPEN HEART PANEL BIANCA DE JESUSRI Start: 01-19-2018 Transfusion blood/blood components BIANCA COSTA Start: 01-19-2018 Ct angio abd&plvis cntrst mtrl w/wo cntrst img BIANCA DE JESUSRI Start: 01-19-2018 IP CONSULT TO NEUROSURGERY BIANCA BRUCEHUMBERTO Start: 01-19-2018 TYPE AND SCREEN BIANCA COSTA Start: 01-19-2018 Assay of amylase BIANCA DE JESUSRI Start: 01-19-2018 Assay of lipase BIANCA DE JESUSRI Start: 01-19-2018 Hepatic function panel BIANCA ROCK I Start: 01-19-2018 TEG, RAPID CITRATED BIANCA ALEXANDERHURI Start: 01-19-2018 TRAUMA PANEL BIANCA ANNACAROLINA Start: 01-19-2018 SURGICAL PATHOLOGY BIANCA ANNACAROLINA Start: 04-06-2017 INFLUENZA, QUADV, 3 YRS AND OLDER, IM, MDV, 0.5ML (FLUZONE QUADV) HASEEB NELSONKRISTINA Start: 04-06-2017 PNEUMOCOCCAL POLYSACCHARIDE VACCINE 23-VALENT =>2YO SQ/IM HASEEB ALANIS Hernia repair Gildardo Lacy Work Phone: History of radiation therapy History of radiation therapy Kathrine Carpenter MD Work Phone: History of radiation therapy History of radiation therapy Kathrine Carpenter MD Work Phone: 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 Start: 04-04-2030 Screening for malign ant neoplasm of colon [facility] Start: 09-07-2028 Lipid panel Lipid Screening [facility] Start: 05-14-2028 DTaP/Tdap/Td Vaccine s (2 - Td or Tdap) DTaP/Tdap/Td Vaccines (2 - Td or Tdap) [facility] Start: 05-14-[address] [facility] Start: 12-14-2026 Diabetes Screening Diabetes Screenin [facility] Start: 08-17-2026 Diabetes Screening Diabetes Screenin [facility] Start: 06-02-2026 Diabetes Screening Diabetes Screenin [facility] Start: 01-27-2026 Diabetes Screening Diabetes Screenin [facility] Start: 2025 PNEUMOCOCCAL (3 - PPSV23 or PCV20) PNEUMOCOCCAL (3 - PPSV23 or PCV20) [facility] Start: [address] [facility] Start: 2025 Pneumococcal Vaccine : Pediatrics (0 to 5 Years) and At-Risk Patients (6 to 64 Years) (3 - PPSV23 or PCV20) Pneumococcal Vaccine: Pediatrics (0 to 5 Years) and At-Risk Patients (6 to 64 Years) (3 - PPSV23 or PCV20) [facility] Start: 2025 Pneumococcal Vaccine : Pediatrics (0 to 5 Years) and At-Risk Patients (6 to 64 Years) (3 of 3 - PPSV23 or PCV20) Pneumococcal Vaccine: Pediatrics (0 to 5 Years) and At-Risk Patients (6 to 64 Years) (3 of 3 - PPSV23 or PCV20) [facility] Start: 09-16-2025 DIABETES SCREEN DIABETES SCREEN [facility] Start: 06-21-2025 BP Controlled (<130/80) BP Controlle d (<130/80) [facility] Start: 05-20-2025 DIABETES SCREEN [facility] Start: 04-12-2025 Medicare Annual Wellness (AWV) Medicare Annual Wellness (AWV) [facility] Start: 01-16-2025 DIABETES SCREEN [facility] Start: 12-20-2024 End: 12-20-2024 Patient encounter procedure 12/20/2024 1:15 PM EDT Office Visit Radiation Oncology [address] [place] [address] [place] [address] [place] [address] [place] [id number] Followup Radiation Oncology Comment on above: Followup Start: 10-11-2024 End: 10-11-2024 Patient encounter procedure 10/11/2024 10:30 AM EDT Office Visit [facility] [address] [place] [address] Gildardo Lacy MD [address] [place] [id number] [facility] Start: 10-03-2024 DIABETES SCREEN [facility] Start: 09-24-2024 DIABETES SCREEN [facility] Start: 09-16-2024 DIABETES SCREEN [facility] Start: 09-09-2024 DIABETES SCREEN [facility] Start: 09-02-2024 DIABETES SCREEN [facility] Start: 08-26-2024 DIABETES SCREEN [facility] Start: 08-19-2024 DIABETES SCREEN [facility] Start: 08-12-2024 DIABETES SCREEN DIABETES SCREEN [facility] Start: 06-28-2024 DIABETES SCREEN DIABETES SCREEN [facility] Start: 06-21-2024 End: 06-21-2024 Patient encounter procedure 06/21/2024 1:30 PM EST Office Visit Radiation Oncology [address] [place] [address] Kathrine Carpenter MD [address] [place] [place] [address] Followup Radiation Oncology Comment on above: Followup Start: 06-10-2024 End: 06-10-2024 Patient encounter procedure Radiology Comment on above: XR SHOULDER GENERAL 3V OR MORE AP/TRUE AP/OTHER RIGHT Rt shoulder / arthra lgia Start: 06-09-2024 End: 06-09-2024 Patient encounter procedure 06/09/2024 10:20 AM EST Office Visit [facility] [address] [place] [address] Carmen Neely MD [address] [place] [address] [facility] Start: 05-24-2024 End: 05-24-2024 Patient encounter procedure [facility] Comment on above: S/P arthroscopy of r ight shoulder (Primary Dx); Internal derangement of shoulder, right Start: 05-06-2024 End: 05-06-2025 MR Shoulder - right WO contrast MR shoulder right wo IV contrast Imaging Routine Internal derangement of shoulder, right Expected: 05/06/2024 (Approximate), Expires: 05/06/2025 [facility] Work Phone: Comment on above: Expected: 05/06/2024 (Approximate), Expires: 05/06/2025 Start: 05-06-2024 End: 05-06-2024 Patient encounter procedure [facility] Comment on above: S/P arthroscopy of r ight shoulder (Primary Dx) Start: 04-12-2024 End: 04-12-2025 XR Foot - left 2 Views XR foot 1 or 2 views left Imaging Routine Left foot pain Expected: 04/12/2024, Expires: 04/12/2025 [facility] Work Phone: Comment on above: Expected: 04/12/2024 , Expires: 04/12/2025 Start: 04-12-2024 End: 04-12-2024 Patient encounter procedure [facility] Comment on above: Arrived Start: 03-23-2024 End: 03-23-2024 Patient encounter procedure [facility] Comment on above: S/P arthroscopy of r ight shoulder (Primary Dx) Start: 02-29-2024 End: 02-29-2024 Patient encounter procedure [facility] Comment on above: Arrived Start: 02-23-2024 End: 02-23-2024 Patient encounter procedure [facility] Comment on above: S/P arthroscopy of r ight shoulder (Primary Dx) Start: 02-09-2024 End: 02-09-2024 Patient encounter procedure 02/09/2024 11:30 AM EDT Procedure Visit [facility] Jr. Martin Chen, [address] [place] [address] [facility] Start: 02-02-2024 End: 01-27-2025 ECG 12 lead ECG 12 lead ECG Routine Preop examination Expected: 02/02/2024 (Approximate), Expires: 01/27/2025 [facility] Work Phone: Comment on above: Expected: 02/02/2024 (Approximate), Expires: 01/27/2025 Start: 01-03-2024 Covid-19 Vaccine () Covid-[address] () [facility] Start: 01-03-2024 Influenza vaccination Influenza Vacc ine (#1) [facility] Start: 12-28-2023 End: 12-28-2023 Patient encounter procedure 12/28/2023 2:00 PM EDT Office Visit [facility] [address] [place] [address] Jr. Martin Chen C, DO [address] [place] [address] Arrived [facility] Comment on above: Arrived Start: 12-22-2023 End: 12-22-2023 Follow-up encounter 12/22/2023 3:15 PM EDT Visit (SP) Office Hematology/Oncology [address] [place] [address] Esdras Cash MD [address] [place] [address] 18 week follow up for pet scan results Hematology/Oncology Comment on above: 18 week follow up fo r pet scan results Start: 12-22-2023 End: 12-22-2023 Patient encounter procedure 12/22/2023 2:45 PM EDT Office Visit Radiation Oncology [address] [place] [address] Kathrine Carpenter MD [address] [place] [place] [address] Followup Rad[facility] Oncology Comment on above: Followup Start: 12-18-2023 End: 03-18-2024 CBC W Auto Differential panel - Blood COMPLETE BLOOD COUNT AND DIFFERENTIAL Lab Routine Cancer of base of tongue (HCC) Malaise and fatigue Expected: 12/18/2023 (Approximate), Expires: 03/18/2024 [facility] Work Phone: Comment on above: Expected: 12/18/2023 (Approximate), Expires: 03/18/2024 Start: 12-18-2023 End: 03-18-2024 Comprehensive metabolic 2000 panel - Serum or Plasma COMPREHENSIVE METABOLIC PANEL Lab Routine Cancer of base of tongue (HCC) Malaise and fatigue Expected: 12/18/2023 (Approximate), Expires: 03/18/2024 [facility] Work Phone: Comment on above: Expected: 12/18/2023 (Approximate), Expires: 03/18/2024 Start: 12-18-2023 End: 03-18-2024 Thyrotropin [Units/volume] in Serum or Plasma THYROID STIMULATING HORMONE Lab Routine Cancer of base of tongue (HCC) Malaise and fatigue Expected: 12/18/2023 (Approximate), Expires: 03/18/2024 [facility] Work Phone: Comment on above: Expected: 12/18/2023 (Approximate), Expires: 03/18/2024 Start: 12-15-2023 End: 12-15-2023 Patient encounter procedure 12/15/2023 9:00 AM EDT Appointment Radiology Pet CT [address] [place] [address] [place] [address] Comment on above: Pet scan Start: 11-17-2023 End: 11-17-2023 Patient encounter procedure 11/17/2023 10:20 AM EDT Office Visit [facility] [address] [place] [phone] Carmen Neely MD [address] [place] [address] [facility] Start: 09-17-2023 BP CONTROLLED (<130/80) BP CONTROLLE D (<130/80) [facility] Start: 09-11-2023 Influenza vaccination LUNG CANCER SC REENING [facility] Start: 09-11-2023 Screening for malign ant neoplasm of lung Lung Cancer Screening [facility] Start: 07-17-2023 BP CONTROLLED (<130/80) BP CONTROLLE D (<130/80) [facility] Start: 05-20-2023 BP CONTROLLED (<130/80) BP CONTROLLE D (<130/80) [facility] Start: 05-06-2023 End: 05-06-2024 Lipid 1996 panel - Serum or Plasma Lipid Panel Lab Routine Hyperlipidemia, unspecified hyperlipidemia type Expected: 05/06/2023 (Approximate), Expires: 05/06/2024 [facility] Service Area Work Phone: Comment on above: Expected: 05/06/2023 (Approximate), Expires: 05/06/2024 Start: 04-17-2023 BP CONTROLLED (<130/80) BP CONTROLLE D (<130/80) [facility] Start: 04-14-2023 Influenza vaccination LUNG CANCER SC REENING [facility] Start: 02-25-2023 BP CONTROLLED (<130/80) BP CONTROLLE D (<130/80) [facility] Start: 02-18-2023 BP CONTROLLED (<130/80) BP CONTROLLE D (<130/80) [facility] Start: 01-31-2023 Pneumococcal Vaccine : 50+ (3 of 3 - PCV20 or PCV21) Pneumococcal Vaccine: 50+ (3 of 3 - PCV20 or PCV21) [facility] Start: 01-02-2023 Covid-19 Vaccine ( season) Covid-19 Vaccine ( season) [facility] Start: 01-02-2023 Influenza vaccination C [facility] Start: 12-26-2022 BP CONTROLLED (<130/80) BP CONTROLLE D (<130/80) [facility] Start: 12-02-2022 EPV, Provider: Carmen Neely, Status: Pen, Time: 10:20 AM EPV, Provider: Carmen Neely, Status: Pen, Time: 10:20 AM -[facility] [address] DO Work Phone: Start: 11-21-2022 BP CONTROLLED (<130/80) BP CONTROLLE D (<130/80) [facility] Start: 10-09-2022 BP CONTROLLED (<130/80) BP CONTROLLE D (<130/80) [facility] Start: 10-03-2022 BP CONTROLLED (<130/80) BP CONTROLLE D (<130/80) [facility] Start: 09-23-2022 BP CONTROLLED (<130/80) BP CONTROLLE D (<130/80) [facility] Start: 09-16-2022 BP CONTROLLED (<130/80) BP CONTROLLE D (<130/80) [facility] Start: 09-09-2022 BP CONTROLLED (<130/80) BP CONTROLLE D (<130/80) [facility] Start: 09-02-2022 BP CONTROLLED (<130/80) BP CONTROLLE D (<130/80) [facility] Start: 08-12-2022 BP CONTROLLED (<130/80) BP CONTROLLE D (<130/80) [facility] Start: 08-12-2022 End: 10-12-2022 CREATININE BLD CREATININE BLD Lab Routine Oropharnyx cancer (HCC) Expected: 08/12/2022, Expires: 10/12/2022 [facility] Work Phone: Comment on above: Expected: 08/12/2022 , Expires: 10/12/2022 Start: 08-07-2022 COVID-19 Vaccine (4 - Pfizer series) COVID-19 Vaccine (4 - Pfizer series) [facility] Start: 08-01-2022 BP CONTROLLED (<130/80) BP CONTROLLE D (<130/80) [facility] Start: 07-30-2022 BP CONTROLLED (<130/80) BP CONTROLLE D (<130/80) [facility] Start: 07-16-2022 End: 09-15-2022 Thyrotropin [Units/volume] in Serum or Plasma TSH BLD Lab Routine Cancer of base of tongue (HCC) Expected: 07/16/2022, Expires: 09/15/2022 [facility] Work Phone: Comment on above: Expected: 07/16/2022 , Expires: 09/15/2022 Start: 07-16-2022 End: 09-15-2022 Thyroxine (T4) [Mass/volume] in Serum or Plasma T4/THYROXINE BLOOD Lab Routine Cancer of base of tongue (HCC) Expected: 07/16/2022, Expires: 09/15/2022 [facility] Work Phone: Comment on above: Expected: 07/16/2022 , Expires: 09/15/2022 Start: 06-20-2022 Influenza vaccination LUNG CANCER [facility] Start: 06-10-2022 FUV, Provider: Carmen Neely, Status: Pen, Time: 10:20 AM FUV, Provider: Carmen Neely, Status: Pen, Time: 10:20 AM [facility] [employer] [address] DO Work Phone: Start: 04-25-2022 End: 06-25-2022 CREATININE BLD CREATININE BLD Lab Routine Oropharnyx cancer (HCC) Expected: 04/25/2022 (Approximate), Expires: 06/25/2022 [facility] Work Phone: Comment on above: Expected: 04/25/2022 (Approximate), Expires: 06/25/2022 Start: 04-06-2022 PNEUMOCOCCAL (3 - PPSV23 if available, else PCV20) PNEUMOCOCCAL (3 - PPSV23 if available, else PCV20) [facility] Start: 04-06-2022 PNEUMOCOCCAL (3 - PPSV23 or PCV20) PNEUMOCOCCAL (3 - PPSV23 or PCV20) [facility] Start: 01-13-2022 STRESS NUC, Provider : KELSEY GUERREROI NUCLEAR 01,[id number], Status: Pen, Time: 12:00 PM STRESS NUC, Provider: KELSEY HHVI NUCLEAR 01,[id number], Status: Pen, Time: 12:00 PM [facility] Work Phone: Start: 01-13-2022 ECHO, Provider: KELSEY GUERREROI ULTRASOUND 01,[id number], Status: Pen, Time: 10:45 AM ECHO, Provider: KELSEY GUERREROI ULTRASOUND 01,[id number], Status: Pen, Time: 10:45 AM [facility] DO Work Phone: Start: 01-03-2022 End: 03-05-2022 CBC W Auto Differential panel - Blood CBC + DIFF Lab Routine Malaise and fatigue Oropharnyx cancer (HCC) Expected: 01/03/2022, Expires: 03/05/2022 [facility] Work Phone: Comment on above: Expected: 01/03/2022 , Expires: 03/05/2022 Start: 01-03-2022 End: 03-05-2022 Comprehensive metabolic 2000 panel - Serum or Plasma COMP METABOLIC PANEL Lab Routine Malaise and fatigue Oropharnyx cancer (HCC) Expected: 01/03/2022, Expires: 03/05/2022 [facility] Work Phone: Comment on above: Expected: 01/03/2022 , Expires: 03/05/2022 Start: 01-03-2022 End: 03-05-2022 T4/FTI/T4U T4/FTI/T4U Lab Routine Malaise and fatigue Oropharnyx cancer (HCC) Expected: 01/03/2022, Expires: 03/05/2022 [facility] Work Phone: Comment on above: Expected: 01/03/2022 , Expires: 03/05/2022 Start: 01-03-2022 End: 03-05-2022 Thyrotropin [Units/volume] in Serum or Plasma TSH BLD Lab Routine Malaise and fatigue Oropharnyx cancer (HCC) Expected: 01/03/2022, Expires: 03/05/2022 [facility] Work Phone: Comment on above: Expected: 01/03/2022 , Expires: 03/05/2022 Start: 01-02-2022 Influenza vaccination INFLUENZA (#1) [facility] Start: 12-26-2021 End: 02-25-2022 Thyrotropin [Units/volume] in Serum or Plasma TSH BLD Lab Routine Oropharnyx cancer (HCC) Expected: 12/26/2021, Expires: 02/25/2022 [facility] Work Phone: Comment on above: Expected: 12/26/2021 , Expires: 02/25/2022 Start: 12-26-2021 End: 02-25-2022 Thyroxine (T4) [Mass/volume] in Serum or Plasma T4/THYROXINE BLOOD Lab Routine Oropharnyx cancer (HCC) Expected: 12/26/2021, Expires: 02/25/2022 [facility] Work Phone: Comment on above: Expected: 12/26/2021 , Expires: 02/25/2022 Start: 12-22-2021 End: 12-21-2022 NM PET/CT SKULL-THIGH SUBSEQUENT NM PET/CT SKULL-THIGH SUBSEQUENT Radiology Routine Oropharnyx cancer (HCC) Expected: 12/22/2021, Expires: 12/21/2022 [facility] Work Phone: Comment on above: Expected: 12/22/2021 , Expires: 12/21/2022 Start: 09-24-2021 End: 11-24-2021 Basic metabolic 2000 panel - Serum or Plasma BASIC METABOLIC PNL Lab Routine Oropharnyx cancer (HCC) Expected: 09/24/2021, Expires: 11/24/2021 [facility] Work Phone: Comment on above: Expected: 09/24/2021 , Expires: 11/24/2021 Start: 09-24-2021 End: 11-24-2021 CBC W Auto Differential panel - Blood CBC + DIFF Lab Routine Oropharnyx cancer (HCC) Expected: 09/24/2021, Expires: 11/24/2021 [facility] Work Phone: Comment on above: Expected: 09/24/2021 , Expires: 11/24/2021 Start: 09-16-2021 End: 11-16-2021 CBC W Auto Differential panel - Blood CBC + DIFF Lab Routine Lower abdominal pain Cancer of base of tongue (HCC) Nausea Expected: 09/16/2021, Expires: 11/16/2021 [facility] Work Phone: Comment on above: Expected: 09/16/2021 , Expires: 11/16/2021 Start: 09-16-2021 End: 11-16-2021 Comprehensive metabolic 2000 panel - Serum or Plasma COMP METABOLIC PANEL Lab Routine Lower abdominal pain Cancer of base of tongue (HCC) Nausea Expected: 09/16/2021, Expires: 11/16/2021 [facility] Work Phone: Comment on above: Expected: 09/16/2021 , Expires: 11/16/2021 Start: 09-02-2021 End: 11-02-2021 CBC W Auto Differential panel - Blood [facility] Work Phone: Comment on above: Expected: 09/02/2021 , Expires: 11/02/2021 Start: 09-02-2021 End: 11-02-2021 Comprehensive metabolic 2000 panel - Serum or Plasma [facility] Work Phone: Comment on above: Expected: 09/02/2021 , Expires: 11/02/2021 Start: 08-26-2021 End: 10-26-2021 CBC W Auto Differential panel - Blood CBC + DIFF Lab Routine 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) Oropharyngeal dysphagia Chronic obstructive pulmonary disease, unspecified COPD type (HCC) Heart disease Cancer related pain Anxiety and depression Severe protein-calorie malnutrition (HCC) Malaise and fatigue Hypertension, unspecified type Tachycardia Expected: 08/26/2021, Expires: 10/26/2021 [facility] Work Phone: Comment on above: Expected: 08/26/2021 , Expires: 10/26/2021 Start: 08-26-2021 End: 10-26-2021 Comprehensive metabolic 2000 panel - Serum or Plasma COMP METABOLIC PANEL Lab Routine 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) Oropharyngeal dysphagia Chronic obstructive pulmonary disease, unspecified COPD type (HCC) Heart disease Cancer related pain Anxiety and depression Severe protein-calorie malnutrition (HCC) Malaise and fatigue Hypertension, unspecified type Tachycardia Expected: 08/26/2021, Expires: 10/26/2021 [facility] Work Phone: Comment on above: Expected: 08/26/2021 , Expires: 10/26/2021 Start: 08-12-2021 End: 10-12-2021 CBC W Auto Differential panel - Blood CBC + DIFF Lab Routine Cancer of base of tongue (HCC) Malaise and fatigue Expected: 08/12/2021, Expires: 10/12/2021 [facility] Work Phone: Comment on above: Expected: 08/12/2021 , Expires: 10/12/2021 Start: 08-12-2021 End: 10-12-2021 Comprehensive metabolic 2000 panel - Serum or Plasma COMP METABOLIC PANEL Lab Routine Cancer of base of tongue (HCC) Malaise and fatigue Expected: 08/12/2021, Expires: 10/12/2021 [facility] Work Phone: Comment on above: Expected: 08/12/2021 , Expires: 10/12/2021 Start: 08-12-2021 End: 10-12-2021 T4/FTI/T4U T4/FTI/T4U Lab Routine Cancer of base of tongue (HCC) Malaise and fatigue Expected: 08/12/2021, Expires: 10/12/2021 [facility] Work Phone: Comment on above: Expected: 08/12/2021 , Expires: 10/12/2021 Start: 08-12-2021 End: 10-12-2021 Thyrotropin [Units/volume] in Serum or Plasma TSH BLD Lab Routine Cancer of base of tongue (HCC) Malaise and fatigue Expected: 08/12/2021, Expires: 10/12/2021 [facility] Work Phone: Comment on above: Expected: 08/12/2021 , Expires: 10/12/2021 Start: 08-01-2021 End: 10-01-2021 CBC W Auto Differential panel - Blood CBC + DIFF Lab Routine Cancer of base of tongue (HCC) Malaise and fatigue Expected: 08/01/2021, Expires: 10/01/2021 [facility] Work Phone: Comment on above: Expected: 08/01/2021 , Expires: 10/01/2021 Start: 08-01-2021 End: 10-01-2021 Comprehensive metabolic 2000 panel - Serum or Plasma COMP METABOLIC PANEL Lab Routine Cancer of base of tongue (HCC) Malaise and fatigue Expected: 08/01/2021, Expires: 10/01/2021 [facility] Work Phone: Comment on above: Expected: 08/01/2021 , Expires: 10/01/2021 Start: 08-01-2021 End: 10-01-2021 T4/FTI/T4U T4/FTI/T4U Lab Routine Cancer of base of tongue (HCC) Malaise and fatigue Expected: 08/01/2021, Expires: 10/01/2021 [facility] Work Phone: Comment on above: Expected: 08/01/2021 , Expires: 10/01/2021 Start: 08-01-2021 End: 10-01-2021 Thyrotropin [Units/volume] in Serum or Plasma TSH BLD Lab Routine Cancer of base of tongue (HCC) Malaise and fatigue Expected: 08/01/2021, Expires: 10/01/2021 [facility] Work Phone: Comment on above: Expected: 08/01/2021 , Expires: 10/01/2021 Start: 03-22-2021 COVID-19 VACCINE (4 - Booster) COVID-19 VACCINE (4 - Booster) [facility] Start: 03-14-2021 COVID-19 VACCINE (4 - Booster) COVID-19 VACCINE (4 - Booster) [facility] Start: 02-14-2021 COVID-19 VACCINE (4 - Booster) COVID-19 VACCINE (4 - Booster) [facility] Start: 2020 RSV Vaccine (1 - 1-d ose 60+ series) RSV Vaccine (1 - 1-dose 60+ series) [facility] Start: 07-09-2018 SHINGRIX VACCINE (2 of 2) SHINGRIX VACCINE (2 of 2) [facility] Start: 07-09-2018 Zoster Vaccines (2 o f 2) Zoster Vaccines (2 of 2) [facility] Start: 09-19-2015 PROSTATE CANCER SCREENING DISCUSSION PROSTATE CANCER SCREENING DISCUSSION [facility] Start: 09-19-2015 Prostate specific antigen measurement Prostate Cancer Screening Discussion [facility] Start: 2010 SHINGRIX VACCINE (1 of 2) SHINGRIX VACCINE (1 of 2) [facility] Start: 2005 COLOGUARD (FIT-DNA) COLOGUARD (FIT-D NA) [facility] Start: [address] [facility] Start: 2005 COLORECTAL CANCER SCREENING COLORECTAL CANCER SCREENING [facility] Start: [address] COLONOGRAPHY [facility] Start: 2005 FECAL OCCULT BLOOD FECAL OCCULT BLOO D [facility] Start: 2005 Screening for malign ant neoplasm of colon [facility] Start: 2005 SIGMOIDOSCOPY SIGMOIDOSCOPY [facility] Start: 09-19-1995 Lipid 1996 panel - Serum or Plasma Lipid Screening [facility] Start: 09-19-1995 Lipid panel Lipid Screening [facility] Start: 09-19-1995 LIPID SCREEN LIPID SCREEN [facility] Start: 1990 Zoledronic acid therapy ALPHA- 1 ANTITRYPS[address] DEFICIENCY SCREENING [facility] Start: 09-19-1979 Urine microalbumin profile DTAP,TDAP,TD (1 - Tdap) [facility] Start: 1978 ANNUAL PCP TEAM HEAD OF TALENT MANAGEMENT USHA DISEASE VISIT ANNUAL PCP TEAM CHRONIC DISEASE VISIT [facility] Start: 1978 Anxiety Screening Anxiety Screening [facility] Start: 1978 BP CONTROLLED (<130/80) BP CONTROLLE D (<130/80) [facility] Start: 1978 Diabetes mellitus screening Diabetes Screening [facility] Start: 1978 HEPATITIS C SCREENING HEPATITIS C [facility] Start: 1978 Hepatitis C screening Hepatitis C [facility] Start: 1978 HIV SCREENING HIV SCREENING [facility] Start: 1978 HIV screening HIV Screening [facility] Start: [address] [facility] Start: 1961 MMR Vaccines (1 of 1 - Standard series) MMR Vaccines (1 of 1 - Standard series) [facility] Start: 1960 HIV screening HIV Screening [facility] Start: 1960 Lipid panel Lipid Panel [facility] Start: 1960 Medicare Annual Wellness (AWV) Medicare Annual Wellness (AWV) [facility] Start: 1960 Medicare Annual Wellness Visit Medicare Annual Wellness Visit (AWV) [facility] Start: 1960 Screening for malign ant neoplasm of colon [facility] End: 03-27-2023 CT CHEST W IVCON CT CHEST W IVCON Radiology Routine Oropharnyx cancer (HCC) 1 Occurrences starting 02/25/2022 until 03/27/2023 [facility] Work Phone: Comment on above: 1 Occurrences starti ng 02/25/2022 until 03/27/2023 End: 03-27-2023 Ct soft tissue neck w/contrast material CT NECK SOFT TISSUE W IVCON Radiology Routine Oropharnyx cancer (HCC) 1 Occurrences starting 02/25/2022 until 03/27/2023 [facility] Work Phone: Comment on above: 1 Occurrences starti ng 02/25/2022 until 03/27/2023 End: 09-16-2024 PET+CT Guidance for localization of tumor of Skull base to mid-thigh-- W [id number] IV NM PET/CT SKULL-THIGH SUBSEQUENT Radiology Routine Cancer of base of tongue (HCC) Malaise and fatigue 1 Occurrences starting 08/18/2023 until 09/16/2024 [facility] Work Phone: Comment on above: 1 Occurrences starti ng 08/18/2023 until 09/16/2024 PT PLAN OF CARE CERTIFICATION PT PLAN OF CARE CERTIFICATION Procedures Routine Current smoker Physical deconditioning Ordered: 08/09/2021 [facility] Work Phone: Comment on above: Ordered: 08/09/2021 End: 10-16-2022 Radiologic exam abdomen 2 views XR ABDOMEN 2V ROUTINE SUPINE W UPRIGHT/DECUB/CTL Radiology Routine Lower abdominal pain 1 Occurrences starting 09/16/2021 until 10/16/2022 [facility] Work Phone: Comment on above: 1 Occurrences starti ng 09/16/2021 until 10/16/2022 End: 07-07-2025 XR Shoulder - right 3 Views XR SHOULDER GENERAL 3V OR MORE AP/TRUE AP/OTHER RIGHT Radiology Routine Pain 1 Occurrences starting 06/07/2024 until 07/07/2025 [facility] Work Phone: Comment on above: 1 Occurrences starti ng 06/07/2024 until 07/07/2025 [facility] c [facility] c [facility] Immunizations Immunization Date Immunization Notes Care Provider [facility] 02-29-2024 influenza, seasonal, injectable, preservative free Gildardo Lacy MD Work Phone: [facility] 07-22-2023 respiratory syncytia l virus (RSV) vaccine, adjuvanted (AREXVY) Esdras Cash MD Work Phone: [facility] 07-22-2023 zoster vaccine recombinant B lyssa Cash MD Work Phone: [facility] 05-27-2023 Influenza, injectabl e, Madin Carmen Canine Kidney, preservative free, quadrivalent Esdras Cash MD Work Phone: [facility] 05-27-2023 influenza virus vacc ine, unspecified formulation DENIA Carpenter MD Work Phone: [facility] 02-18-2022 influenza, injectabl e, quadrivalent, preservative free Esdras Cash MD Work Phone: [facility] 02-18-2022 influenza virus vacc ine, unspecified formulation DENIA Carpenter MD Work Phone: [facility] 03-08-2021 influenza, injectabl e, quadrivalent, preservative free Esdras Cash MD Work Phone: [facility] 12-20-2020 COVID-19 vaccine (UNSPECIFIED) Esdras Cash MD Work Phone: [facility] 12-20-2020 COVID-19 vaccine, ag e 12+ yr ([facility]) Nathaly Biggs APRN.[employer] Work Phone: [facility] 08-01-2020 COVID-19 vaccine, ag e 12+ yr ([facility] Esdras Cash MD Work Phone: [facility] 07-11-2020 COVID-19 vaccine (UNSPECIFIED) Esdras Cash MD Work Phone: [facility] 07-11-2020 COVID-19 vaccine, ag e 12+ yr ([facility] Esdras Cash MD Work Phone: [facility] 03-09-2020 influenza, injectabl e, quadrivalent, preservative free Esdras Cash MD Work Phone: [facility] 03-04-2020 influenza, seasonal, injectable Esdras Cash MD Work Phone: [facility] 02-04-2019 influenza, injectabl e, quadrivalent, preservative free Esdras Cash MD Work Phone: [facility] 05-14-2018 tetanus toxoid, redu heron diphtheria toxoid, and acellular pertussis vaccine, adsorbed Amira Andre [facility] 05-14-2018 zoster vaccine recombinant Amira Scot t [facility] 01-31-2018 haemophilus influenz ae type b vaccine, PRP-T conjugate Esdras Cash MD Work Phone: [facility] 01-31-2018 meningococcal B vacc ine, recombinant, OMV, adjuvanted Edsras Cash MD Work Phone: [facility] 01-31-2018 meningococcal oligosaccharide (groups A, C, Y and W-135) diphtheria toxoid conjugate vaccine (MCV4O) Esdras Cash MD Work Phone: [facility] 01-31-2018 meningococcal polysaccharide (groups A, C, Y and W-135) diphtheria toxoid conjugate vaccine (MCV4P) Esdras Cash MD Work Phone: [facility] 01-31-2018 pneumococcal conjuga te vaccine, 13 valent Esdras Cash MD Work Phone: [facility] 01-27-2018 influenza, injectabl e, quadrivalent, preservative free Esdras Cash MD Work Phone: [facility] 04-06-2017 influenza, injectabl e, quadrivalent, contains preservative Esdras Cash MD Work Phone: [facility] 04-06-2017 pneumococcal polysaccharide vaccine, 23 valent Esdras Cash MD Work Phone: [facility] Payers Date Payer Category Payer Self-pay [id number] 2022 Medicare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 this encounter [facility] 12-15-2023 History of Present illness Narrative Radiology Service Progress Note DATE OF SERVICE: December 15, 2023 TIME: 9:28 AM PATIENT WEIGHT: 174 LBS PATIENT IDENTITY VERIFICATION COMPLETED USING TWO (2) STANDARD IDENTIFIERS: Name and Date of confirmed by patient verbally. FALL SCREENING: Has the patient had 2 falls in the last year or 1 fall with injury or currently using an Ambulatory Assistive Device (Walker, Cane, Wheelchair, Crutches, etc.)? No PATIENT GENDER DATA: Male ALLERGIES: Reviewed and unchanged CONTRAST ALLERGY: No EXAM: CT -CONTRAST INDUCED NEPHROPATHY RISK FACTORS: Not applicable CREATININE: Creatinine Date Value Ref Range Status 08/18/2023 1.20 0.73 - 1.22 mg/dL Final 06/02/2023 0.98 0.73 - 1.22 mg/dL Final 01/27/2023 0.90 0.73 - 1.22 mg/dL Final Estimated Glomerular Filtration Rate Date Value Ref Range Status 08/18/2023 68 >=60 mL/min/1.73m Final Comment: Estimated Glomerular Filtration Rate (eGFR) is calculated using the 2020 CKD-EPI creatinine equation. This equation utilizes serum creatinine, sex, and age as parameters. The creatinine assay has traceable calibration to isotope dilution-mass spectrometry. Refer to KDIGO guidelines for clinical interpretation. In patients with unstable renal function, e.g. those with acute kidney injury, the eGFR may not accurately reflect actual GFR. eGFR- Date Value Ref Range Status 06/28/2021 >60 Final P.O.C.T. RESULTS: POC done: Yes, See Lab Tab December 15, 2023 TREATMENT: No Hydration needed. IV SITE: Ambulatory: A peripheral IV was started in the Right forearm with a Angio cath: 22 gauge. IV SITE APPEARANCE: Clean,Dry and Intact SIGNATURE: Marilee Diamond RN PATIENT NAME: Alejo Floyd DATE: December 15, 2023 TIME: 9:28 AM RADIOLOGY SERVICE PROGRESS NOTE SERVICE DATE: 12/15/2023 SERVICE TIME: 9:33 AM PATIENT IDENTITY VERIFICATION COMPLETED USING TWO (2) STANDARD IDENTIFIERS: Name and Date of confirmed by patient verbally POST EXAM PIV STATUS: Discontinued PROCEDURE TYPE: NM INJECT: PET/CT BODY SCAN. 6.8 mCi F18 FDG. No other medications given.. ADMINISTRATION TIME: 0920 PATIENT DISCHARGED TO: Ambulatory patient, left PA department area. A Diagnostic radioactive procedure has taken place, with no further precautions necessary other than routine body substance precautions. More information regarding radiation safety can be found using this link: [email or web address] [email or web address] SIGNATURE: RT Jose Alfredo(Phil) PATIENT NAME: Alejo Floyd DATE: December 15, 2023 TIME: 9:33 AM PAGER/CONTACT #: documented in this encounter [facility] 12-15-2023 Note HNO ID: [id number] Author: CYNTHIA MEADOWS RT(R) Service: ? Author Type: Technologist Type: Progress Notes Filed: 12/15/2023 09:33 Note Text: RADIOLOGY SERVICE PROGRESS NOTE SERVICE DATE: 12/15/2023 SERVICE TIME: 9:33 AM PATIENT IDENTITY VERIFICATION COMPLETED USING TWO (2) STANDARD IDENTIFIERS: Name and Date of confirmed by patient verbally POST EXAM PIV STATUS: Discontinued PROCEDURE TYPE: NM INJECT: PET/CT BODY SCAN. 6.8 mCi F18 FDG. No other medications given.. ADMINISTRATION TIME: 919 PATIENT DISCHARGED TO: Ambulatory patient, left PA department area. A Diagnostic radioactive procedure has taken place, with no further precautions necessary other than routine body substance precautions. More information regarding radiation safety can be found using this link: [email or web address] 20Diagnostic%20Nuclear%20Medicine [email or web address] SIGNATURE: RT Jose Alfredo(R) PATIENT NAME: Alejo Floyd DATE: December 15, 2023 TIME: 9:33 AM PAGER/CONTACT #: [facility] 12-15-2023 Note HNO ID: [id number] Author: MARILEE DIAMOND RN Service: ? Author Type: Registered Nurse Type: Progress Notes Filed: 12/15/2023 09:29 Note Text: Radiology Service Progress Note DATE OF SERVICE: December 15, 2023 TIME: 9:28 AM PATIENT WEIGHT: 174 LBS PATIENT IDENTITY VERIFICATION COMPLETED USING TWO (2) STANDARD IDENTIFIERS: Name and Date of confirmed by patient verbally. FALL SCREENING: Has the patient had 2 falls in the last year or 1 fall with injury or currently using an Ambulatory Assistive Device (Walker, Cane, Wheelchair, Crutches, etc.)? No PATIENT GENDER DATA: Male ALLERGIES: Reviewed and unchanged CONTRAST ALLERGY: No EXAM: CT -CONTRAST INDUCED NEPHROPATHY RISK FACTORS: Not applicable CREATININE: Creatinine Date Value Ref Range Status 08/18/2023 1.20 0.73 - 1.22 mg/dL Final 06/02/2023 0.98 0.73 - 1.22 mg/dL Final 01/27/2023 0.90 0.73 - 1.22 mg/dL Final Estimated Glomerular Filtration Rate Date Value Ref Range Status 08/18/2023 68 >=60 mL/min/1.73m? Final Comment: Estimated Glomerular Filtration Rate (eGFR) is calculated using the 2020 CKD-EPI creatinine equation. This equation utilizes serum creatinine, sex, and age as parameters. The creatinine assay has traceable calibration to isotope dilution-mass spectrometry. Refer to KDIGO guidelines for clinical interpretation. In patients with unstable renal function, e.g. those with acute kidney injury, the eGFR may not accurately reflect actual GFR. eGFR- Date Value Ref Range Status 06/28/2021 >60 Final P.O.C.T. RESULTS: POC done: Yes, See Lab Tab December 15, 2023 TREATMENT: No Hydration needed. IV SITE: Ambulatory: A peripheral IV was started in the Right forearm with a Angio cath: 22 gauge. IV SITE APPEARANCE: Clean,Dry and Intact SIGNATURE: Marilee Diamond RN PATIENT NAME: Alejo Floyd DATE: December 15, 2023 TIME: 9:28 AM [facility] 11-17-2023 History of Present illness Narrative Subjective Alejo Floyd is a 63 y.o. male Chief Complaint Follow-up HPI Patient is in the office for follow-up for the problems noted below. He has had no events from a cardiac standpoint but unfortunately he is back smoking. This is a patient he already has laryngeal cancer in the past and advanced COPD with severe PAD and now is back smoking. More education in that regard was provided. When examined his heart rate was felt to be rapid and irregular, EKG showed that he is in sinus rhythm with frequent PACs. Assessment/recommendations: 1-significant PAD most affecting the left femoral artery has had previous stenting but recent ultrasound showed occlusion of the left femoral artery. He remains asymptomatic. Encouraged the patient to stop smoking and to walk on daily basis to recruit more collaterals. Since he does not have symptoms we will not initiate medical therapy. He was advised against interventions in the absence of symptoms or tissue loss. 2-hyperlipidemia on high intensity statin, lipid profile is under control 3-longstanding tobacco abuse, he smokes up to a pack a day. Encouragement provided to quit smoking since he has multiple complications of tobacco abuse. 4-COPD, currently stable he does not follow with pulmonary medicine 5-history of TIA, currently on aspirin and statin therapy Review of Systems All other systems reviewed and are negative. Vitals: 11/17/23 1029 BP: 138/78 BP Location: Left arm Patient Position: Sitting Pulse: 88 Weight: 59 kg (130 lb) Height: 1.778 m (5' 10 ) Objective Physical Exam Constitutional: Appearance: Normal appearance. HENT: Nose: Nose normal. Neck: Vascular: No carotid bruit. Cardiovascular: Rate and Rhythm: Normal rate. Pulses: Normal pulses. Heart sounds: Normal heart sounds. Pulmonary: Effort: Pulmonary effort is normal. Breath sounds: Decreased air movement present. Abdominal: General: Bowel sounds are normal. Palpations: Abdomen is soft. Musculoskeletal: General: Normal range of motion. Cervical back: Normal range of motion. Right lower leg: No edema. Left lower leg: No edema. Skin: General: Skin is warm and dry. Neurological: General: No focal deficit present. Mental Status: He is alert. Psychiatric: Mood and Affect: Mood normal. Behavior: Behavior normal. Thought Content: Thought content normal. Judgment: Judgment normal. Allergies Patient has no known allergies. Current Medications Current Outpatient Medications: albuterol 2.5 mg /3 mL (0.083 %) nebulizer solution, Inhale., Disp: , Rfl: albuterol 90 mcg/actuation inhaler, Inhale 2 puffs 3 times a day., Disp: , Rfl: aspirin 81 mg EC tablet, Take 1 tablet (81 mg) by mouth once daily., Disp: , Rfl: atorvastatin (Lipitor) 20 mg tablet, Take 1 tablet (20 mg) by mouth once daily., Disp: , Rfl: buPROPion XL (Wellbutrin XL) 300 mg 24 hr tablet, Take 1 tablet (300 mg) by mouth once daily., Disp: , Rfl: celecoxib (CeleBREX) 200 mg capsule, Take 1 capsule (200 mg) by mouth 2 times a day., Disp: , Rfl: DULoxetine (Cymbalta) [address] capsule, Take 1 capsule (30 mg) by mouth once daily., Disp: , Rfl: fluticasone furoate-vilanteroL (Breo Ellipta) 100-25 mcg/dose inhaler, Inhale., Disp: , Rfl: ipratropium-albuteroL (Duo-Neb) 0.5-2.5 mg/3 mL nebulizer solution, Inhale., Disp: , Rfl: metoprolol succinate XL (Toprol-XL) 50 mg 24 hr tablet, Take 1 tablet (50 mg) by mouth once daily., Disp: , Rfl: oxyCODONE-acetaminophen (Percocet) 5-325 mg tablet, Take 1 tablet by mouth every 6 hours if needed., Disp: , Rfl: potassium chloride CR 10 mEq ER tablet, Take 1 tablet (10 mEq) by mouth once daily., Disp: , Rfl: topiramate (Topamax) 50 mg tablet, Take 1 tablet (50 mg) by mouth 2 times a day., Disp: , Rfl: zolpidem (Ambien) 10 mg tablet, Take 1 tablet (10 mg) by mouth once daily at bedtime., Disp: , Rfl: Assessment/Plan 1. PVD (peripheral vascular disease) ([facility]) Follow Up In Cardiology 2. Hyperlipidemia, unspecified hyperlipidemia type 3. TIA (transient ischemic attack) 4. BMI less than 19,adult 5. Current smoker Scribe Attestation By signing my name below, Sweetie Negron Scribe attest that this documentation has been prepared under the direction and in the presence of Carmen Neely MD. Provider Attestation - Scribe documentation All medical record entries made by the Scribe were at my direction and personally dictated by me. I have reviewed the chart and agree that the record accurately reflects my personal performance of the history, physical exam, discussion and plan. documented in this encounter [facility] Work Phone: 11-17-2023 Instructions Sweetie Hidalgo LPN - 11/17/2023 10:20 AM EDT Please bring all medicines, vitamins, and herbal supplements with you when you come to the office. Prescriptions will not be filled unless you are compliant with your follow up appointments or have a follow up appointment scheduled as per instruction of your physician. Refills should be requested at the time of your visit. BMI was below normal measurement. Current weight: 59 kg (130 lb) Weight change since last visit (-) denotes wt loss -21 lbs Weight gain needed to achieve BMI of 18.5 = 1.4 Lbs Provided dietary education for weight gain to the patient. documented in this encounter [facility] Work Phone: 10-14-2023 Note Subjective Patient ID: Alejo Floyd is a 63 y.o. male who presents for New Patient (Carotid stenosis, Ref Gildardo Lacy). Alejo is a 63 year old male with who presents today as a new patient for evaluation for carotid stenosis. Patient had carotid duplex in June which demonstrated left ICA occlusion and <50% stenosis on the right. He does report prior history of TIA remotely but no symptoms within the last 6 months. Denies any unilateral weakness, facial droop, dysarthria, confusion or amaurosis fugax. Patient is on ASA, statin. He is a current smoker Patient also had ABIs in June which demonstrated PAOD with left BRITTANY 0.47 with inflow disease. He denies any claudication symptoms, tissue loss, or rest pain currently. He does have a history of revascularization with left lower extremity femoral angioplasty and stenting on 09/28/[address] Najera. Review of Systems Constitutional: Positive for activity change. Respiratory: Positive for cough and shortness of breath. Gastrointestinal: Positive for abdominal pain. Musculoskeletal: Positive for back pain, neck pain and neck stiffness. Skin: Negative. Neurological: Positive for weakness and headaches. Psychiatric/Behavioral: Negative for suicidal ideas. Objective There were no vitals taken for this visit. Physical Exam Constitutional: General: He is not in acute distress. Appearance: Normal appearance. He is not ill-appearing. HENT: Head: Normocephalic and atraumatic. Eyes: General: No scleral icterus. Pupils: Pupils are equal, round, and reactive to light. Cardiovascular: Rate and Rhythm: Normal rate and regular rhythm. Pulmonary: Effort: Pulmonary effort is normal. Breath sounds: Normal breath sounds. Musculoskeletal: Cervical back: Neck supple. Skin: General: Skin is warm and dry. Neurological: General: No focal deficit present. Mental Status: He is alert and oriented to person, place, and time. Psychiatric: Mood and Affect: Mood normal. Behavior: Behavior normal. Thought Content: Thought content normal. Judgment: Judgment normal. Assessment/Plan Diagnoses and all orders for this visit: Carotid stenosis, bilateral - Discussed US results with patient. NO intervention indicated for complete occlusion and he is <50% stenosed on contralateral side. -Patient remains asymptomatic without s/sx of CVA/TIA therefore will continue with best medical management -GDMT: ASA, statin -Discussed warning s/s of CVA/TIA and advised patient that if they experience these symptoms to immediately seek medical attention -Follow up in 1 year with carotid duplex prior PAD (peripheral artery disease) ([facility]) - [facility] US Segmental BRITTANY; Future - He has poor BRITTANY on the right but has no symptoms related to occlusive disease currently. Discussed conservative management with medications and exercise. Follow up in 1 year with repeat BRITTANY at the time, sooner if he develops claudication, tissue loss or rest pain. No diagnosis found. No orders of the defined types were placed in this encounter. No results found for this or any previous visit (from the past 36 hour(s)). No follow-ups on file. [facility] 08-18-2023 Note HNO ID: [id number] Author: Kathrine CARPENTER MD Service: ? 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 Course 2: DATES OF TREATMENT: 08/12/21-09/26/21 AREA TREATED: Right Neck DELIVERED DOSE: Right Neck: 6,000 cGy in 30 fractions, 4 Arcs, IMRT, 6MV with daily CBCT TOTAL: 6,000 cGy in 30 fractions ELAPSED TIME: 45 days. INTERVAL HISTORY: Overall doing fairly well. Has had some issues with skin sensitivity right neck. Has been using Silvadene with some improvement. Denies any open areas or drainage. Denies other new problems. 04/17/2022: Patient states he is doing well. Had some issues with right shoulder/torn ligament. Some ongoing right neck pain stable. Eating fairly well. Mild to moderate dysphagia to dry foods. 11/21/21:Recent increased lower back pain after reaching for object. Denies radicular component. Denies weakness. Also recent upper airway congestion with dysphagia/odynophagia however this is improving for him. LABORATORY: Latest Reference Range AND Units 07/09/22 10:47 T4 5.5 - 10.2 ug/dL 7.2 TSH 0.270 - 4.200 mIU/L 3.200 RADIOLOGY: PET/CT: 02/11/23: 1. Neck: No new suspicious hypermetabolic foci Likely posttreatment changes. 2. Chest: No evidence of FDG avid neoplastic process 3. Abdomen and pelvis: No evidence of FDG avid neoplastic process 4. Skeleton: No hypermetabolic osseous lesions CT neck 09/10/2022: Unenhanced neck CT with stable posttreatment changes with no appreciable mass or lymphadenopathy. CT chest 09/10/2022: 1. Subcentimeter bilateral pulmonary nodules, stable from prior study of 04/14/2022. 2. Several mildly prominent mediastinal lymph nodes are again identified, unchanged. CT neck 04/14/2022:IMPRESSION: Treatment related changes in the right oropharynx. No evidence of locally recurrent neoplasm in this region. Right neck dissection, with resection of the previously seen pathologic right level 2 lymph nodes. No pathologic cervical lymph nodes by imaging criteria. Chronically occluded left ICA. CT chest 04/14/2022:IMPRESSION: 1. 3 mm right upper lobe nodule is appreciated, new finding, which may relate to an area mucous plugging. Correlation with continued follow-up examinations is recommended. 2. 5 mm left lower lobe nodule, stable. 3. No substantial intrathoracic adenopathy is identified. PET CT 12/23/2021: 1. NECK: * No definite FDG avid neoplastic process. Mild diffuse FDG activity in the right neck, may represent post treatment inflammation. 2. CHEST: * No FDG avid neoplastic process. 3. ABDOMEN/PELVIS: * No FDG avid neoplastic process. 4. EXTREMITIES/SKELETON: * No suspicious FDG avid osseous lesion. ALLERGIES No Known Allergies MEDICATIONS: megestrol (MEGACE) 400 mg/10 mL (40 mg/mL) suspension take 20 milliliters by mouth once daily atorvastatin (LIPITOR) 20 mg tablet Take by mouth. omeprazole (PRILOSEC) 40 mg capsule Take 40 mg by mouth twice daily. metoprolol succinate ER (TOPROL XL) 50 mg 24 hr tablet Take 50 mg by mouth once daily. BREO ELLIPTA 100-25 mcg/dose inhaler INHALE 1 PUFF BY MOUTH ONCE DAILY aspirin, enteric coated (ASPIRIN, ENTERIC COATED) 81 mg EC tablet Take 81 mg by mouth once daily. oxyCODONE-acetaminophen (PERCOCET 10) 10-325 mg tablet Take 1 tablet by mouth four times daily as needed. albuterol (PROVENTIL) 2.5 mg /3 mL (0.083 %) nebulizer solution 2.5 mg. albuterol HFA (PROVENTIL HFA, VENTOLIN HFA) 90 mcg/actuation inhaler q 4 HR. DULoxetine (CYMBALTA) 30 mg capsule q 24 HR. ipratropium-albuterol (DUONEB) 0.5 mg-3 mg(2.5 mg base)/3 mL nebu Inhale 3 mL as instructed as needed for wheezing/shortness of breath. topiramate (TOPAMAX) 100 mg tablet Take 100 mg by mouth twice daily. zolpidem (AMBIEN) 10 mg Take 10 mg by mouth at bedtime as needed. REVIEW OF SYSTEMS: GENERAL: SEE HPI. Denies fever. Energy level improving. HEENT: Negative for sudden vision or hearing changes. NECK: Feels tight no significant pain RESPIRATORY: Mild mostly nonproductive cough without dyspnea CARDIAC: Negative for chest pain, palpitations, murmurs, or syncopal episodes. GI: No nausea or diarrhea dysphagia is noted upon SKIN: See HPI PHYSICAL EXAM: VS: 08/18/23 1400 BP: 147/83 Pulse: 104 Temp: 36.9 ?C (98.5 ?F) SpO2: 93% Weight: 67.7 kg (149 lb 4 oz) KPS: 90 General Appearance: Well appearing, alert, in no acute distress, well-hydrated, well nourished.. Skin: Still with chronic postradiation changes mostly right neck. Somewhat thinning appea (more content not included)... 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 Course 2: DATES OF TREATMENT: 08/12/21-09/26/21 AREA TREATED: Right Neck DELIVERED DOSE: Right Neck: 6,000 cGy in 30 fractions, 4 Arcs, IMRT, 6MV with daily CBCT TOTAL: 6,000 cGy in 30 fractions ELAPSED TIME: 45 days. INTERVAL HISTORY: Overall doing fairly well. Has had some issues with skin sensitivity right neck. Has been using Silvadene with some improvement. Denies any open areas or drainage. Denies other new problems. 04/17/2022: Patient states he is doing well. Had some issues with right shoulder/torn ligament. Some ongoing right neck pain stable. Eating fairly well. Mild to moderate dysphagia to dry foods. 11/21/21:Recent increased lower back pain after reaching for object. Denies radicular component. Denies weakness. Also recent upper airway congestion with dysphagia/odynophagia however this is improving for him. LABORATORY: Latest Reference Range & Units 07/09/22 10:47 T4 5.5 - 10.2 ug/dL 7.2 TSH 0.270 - 4.200 mIU/L 3.200 RADIOLOGY: PET/CT: 02/11/23: 1. Neck: No new suspicious hypermetabolic foci Likely posttreatment changes. 2. Chest: No evidence of FDG avid neoplastic process 3. Abdomen and pelvis: No evidence of FDG avid neoplastic process 4. Skeleton: No hypermetabolic osseous lesions CT neck 09/10/2022: Unenhanced neck CT with stable posttreatment changes with no appreciable mass or lymphadenopathy. CT chest 09/10/2022: 1. Subcentimeter bilateral pulmonary nodules, stable from prior study of 04/14/2022. 2. Several mildly prominent mediastinal lymph nodes are again identified, unchanged. CT neck 04/14/2022:IMPRESSION: Treatment related changes in the right oropharynx. No evidence of locally recurrent neoplasm in this region. Right neck dissection, with resection of the previously seen pathologic right level 2 lymph nodes. No pathologic cervical lymph nodes by imaging criteria. Chronically occluded left ICA. CT chest 04/14/2022:IMPRESSION: 1. 3 mm right upper lobe nodule is appreciated, new finding, which may relate to an area mucous plugging. Correlation with continued follow-up examinations is recommended. 2. 5 mm left lower lobe nodule, stable. 3. No substantial intrathoracic adenopathy is identified. PET CT 12/23/2021: 1. NECK: * No definite FDG avid neoplastic process. Mild diffuse FDG activity in the right neck, may represent post treatment inflammation. 2. CHEST: * No FDG avid neoplastic process. 3. ABDOMEN/PELVIS: * No FDG avid neoplastic process. 4. EXTREMITIES/SKELETON: * No suspicious FDG avid osseous lesion. ALLERGIES No Known Allergies MEDICATIONS: megestrol (MEGACE) 400 mg/10 mL (40 mg/mL) suspension take 20 milliliters by mouth once daily atorvastatin (LIPITOR) 20 mg tablet Take by mouth. omeprazole (PRILOSEC) 40 mg capsule Take 40 mg by mouth twice daily. metoprolol succinate ER (TOPROL XL) 50 mg 24 hr tablet Take 50 mg by mouth once daily. BREO ELLIPTA 100-25 mcg/dose inhaler INHALE 1 PUFF BY MOUTH ONCE DAILY aspirin, enteric coated (ASPIRIN, ENTERIC COATED) 81 mg EC tablet Take 81 mg by mouth once daily. oxyCODONE-acetaminophen (PERCOCET 10) 10-325 mg tablet Take 1 tablet by mouth four times daily as needed. albuterol (PROVENTIL) 2.5 mg /3 mL (0.083 %) nebulizer solution 2.5 mg. albuterol HFA (PROVENTIL HFA, VENTOLIN HFA) 90 mcg/actuation inhaler q 4 HR. DULoxetine (CYMBALTA) 30 mg capsule q 24 HR. ipratropium-albuterol (DUONEB) 0.5 mg-3 mg(2.5 mg base)/3 mL nebu Inhale 3 mL as instructed as needed for wheezing/shortness of breath. topiramate (TOPAMAX) 100 mg tablet Take 100 mg by mouth twice daily. zolpidem (AMBIEN) 10 mg Take 10 mg by mouth at bedtime as needed. REVIEW OF SYSTEMS: GENERAL: SEE HPI. Denies fever. Energy level improving. HEENT: Negative for sudden vision or hearing changes. NECK: Feels tight no significant pain RESPIRATORY: Mild mostly nonproductive cough without dyspnea CARDIAC: Negative for chest pain, palpitations, murmurs, or syncopal episodes. GI: No nausea or diarrhea dysphagia is noted upon SKIN: See HPI PHYSICAL EXAM: VS: 08/18/23 1400 BP: 147/83 Pulse: 104 Temp: 36.9 C (98.5 F) SpO2: 93% Weight: 67.7 kg (149 lb 4 oz) KPS: 90 General Appearance: Well appearing, alert, in no acute distress, well-hydrated, well nourished.. Skin: Still with chronic postradiation changes mostly right neck. Somewhat thinning appearance without underlying nodule or mass. No open areas or ulceration. Underlying fibrosis stable. Oropharynx: Lips, mucosa, and tongue without suspicious area. Bimanual exam without palpable finding. No mucositis Neck: Mild to moderate fibrosis right neck stable. No suspicious nodularity, skin with patchy hypopigmentation. Lungs: Clear to auscultation. No wheezing, rhonchi, rales. Neuro: Alert and oriented x3. No cranial nerve deficits appreciable. Lymph Nodes: No cervical lymphadenopathy, No supraclavicular lymphadenopathy and No axillary lymphadenopathy.. 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 management per PCP/pulmonary. 3. Heart disease - ICD9: 429.9, ICD10: I51.9 History of dysrhythmia, stable on current medications. Continue management per PCP/cardiology. 4. Anxiety and depression - ICD9: 300.00, 311, ICD10: F41.9, F32.9 Continue management per PCP. 5. Hypertension - ICD9: 401.9, ICD10: I10; Tachycardia - ICD9: 785.0, ICD10: R00.0 Blood pressure stable on current medications, continue per PCP. 6. Acute bowel obstruction The patient was on 09/16/2021 with complaints of acute nausea, vomiting and lower abdominal pain. He subsequently was seen at the [facility] emergency room on 2021 and transferred to [facility] for suspected small bowel obstruction secondary to an abdominal wall hernia. His acute symptoms resolved with IVF and bowel rest. The patient is aware that his symptoms may recur, in which case surgery may be indicated. Continue management per PCP. Esdras Cash MD documented in this encounter [facility] 02-04-2022 Note PROCEDURE: XR SHOULD ER RT 2V or >, XR CLAVICLE RT HISTORY: Pain of right shoulder joint ; right shoulder and clavicle pain, limited range of motion, palpable lumps COMPARISON: None. FINDINGS: BONES:Prominent degenerative osteophyte along the undersurface of distal end of clavicle. No significant narrowing of the acromioclavicular joint. Unremarkable humeral head and glenoid. SOFT TISSUES:Skin surface markers localized patient's palpable lumps the anterior to the head of the clavicle likely due to degenerative spurring, and to the superior medial aspect of the scapula where there is no appreciable abnormality. EFFUSION:None visible. OTHER: Negative. IMPRESSION: 1. Degenerative changes of the acromioclavicular joint which would predispose to rotator cuff injury. Consider MRI for further evaluation. 2. Unremarkable glenohumeral joint. Electronically authenticated by: BELLA PEREIRA Date: 2022-02-04 12:58 [facility] 02-04-2022 Note PROCEDURE: XR SHOULD ER RT 2V or >, XR CLAVICLE RT HISTORY: Pain of right shoulder joint ; right shoulder and clavicle pain, limited range of motion, palpable lumps COMPARISON: None. FINDINGS: BONES:Prominent degenerative osteophyte along the undersurface of distal end of clavicle. No significant narrowing of the acromioclavicular joint. Unremarkable humeral head and glenoid. SOFT TISSUES:Skin surface markers localized patient's palpable lumps the anterior to the head of the clavicle likely due to degenerative spurring, and to the superior medial aspect of the scapula where there is no appreciable abnormality. EFFUSION:None visible. OTHER: Negative. IMPRESSION: 1. Degenerative changes of the acromioclavicular joint which would predispose to rotator cuff injury. Consider MRI for further evaluation. 2. Unremarkable glenohumeral joint. 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 Course 2: DATES OF TREATMENT: 08/12/21-09/26/21 AREA TREATED: Right Neck DELIVERED DOSE: Right Neck: 6,000 cGy in 30 fractions, 4 Arcs, IMRT, 6MV with daily CBCT TOTAL: 6,000 cGy in 30 fractions ELAPSED TIME: 45 days. INTERVAL HISTORY: Patient relates low back pain has resolved. Still has some right-sided neck pain. In discomfort related to dry mouth. No other new problems. 11/21/21:Recent increased lower back pain after reaching for object. Denies radicular component. Denies weakness. Also recent upper airway congestion with dysphagia/odynophagia however this is improving for him. RADIOLOGY: PET CT 12/23/2021: 1. NECK: * No definite FDG avid neoplastic process. Mild diffuse FDG activity in the right neck, may represent post treatment inflammation. 2. CHEST: * No FDG avid neoplastic process. 3. ABDOMEN/PELVIS: * No FDG avid neoplastic process. 4. EXTREMITIES/SKELETON: * No suspicious FDG avid osseous lesion. ALLERGIES No Known Allergies MEDICATIONS: tiZANidine (ZANAFLEX) 4 mg tablet take 1/2 TO 1 tablet by mouth three times a day if needed keTORolac (TORADOL) 10 mg tablet take 1 tablet by mouth three times a day if needed for pain for 5 days BREO ELLIPTA 100-25 mcg/dose inhaler INHALE 1 PUFF BY MOUTH ONCE DAILY ondansetron orally disintegrating (ZOFRAN ODT) 8 mg disintegrating tablet Take 1 tablet by mouth every 8 hours as needed for nausea/vomiting. prochlorperazine (COMPAZINE) 10 mg tablet Take 1 tablet by mouth every 6 hours as needed. megestrol (MEGACE) 400 mg/10 mL (40 mg/mL) suspension take 20 milliliters by mouth once daily aspirin, enteric coated (ASPIRIN, ENTERIC COATED) 81 mg EC tablet Take 81 mg by mouth once daily. omeprazole magnesium (PRILOSEC ORAL) Take 40 mg by mouth once daily. sildenafil (REVATIO) 20 mg tablet Take 20 mg by mouth once daily. oxyCODONE-acetaminophen (PERCOCET) 5-325 mg tablet Take 1 tablet by mouth four times daily as needed. albuterol (PROVENTIL) 2.5 mg /3 mL (0.083 %) nebulizer solution 2.5 mg. albuterol HFA (PROVENTIL HFA, VENTOLIN HFA) 90 mcg/actuation inhaler q 4 HR. amiodarone (PACERONE) 200 mg tablet Take 200 mg by mouth once daily. amLODIPine (NORVASC) 5 mg tablet Take 5 mg by mouth once daily. buPROPion XL (WELLBUTRIN XL) 300 mg 24 hr tablet Take 300 mg by mouth once daily. DULoxetine (CYMBALTA) 30 mg capsule q 24 HR. fluticasone (FLONASE) 50 mcg/actuation nasal spray 2 Sprays once daily. ipratropium-albuterol (DUONEB) 0.5 mg-3 mg(2.5 mg base)/3 mL nebu Inhale 3 mL as instructed as needed for wheezing/shortness of breath. metoprolol succinate ER (TOPROL XL) 50 mg 24 hr tablet q 24 HR. potassium chloride SR (MICRO-K) 10 mEq CR capsule Take 10 mEq by mouth. rizatriptan (MAXALT) 10 mg tablet Take 10 mg by mouth once daily. topiramate (TOPAMAX) 50 mg tablet Take 50 mg by mouth once daily. zolpidem (AMBIEN) 10 mg Take 10 mg by mouth at bedtime as needed. white petrolatum (AQUAPHOR) 41 % topical ointment Apply to affected area twice daily. REVIEW OF SYSTEMS: GENERAL: SEE HPI. Denies fever. Energy level improving. HEENT: Negative for sudden vision or hearing changes. NECK: Feels tight no significant pain RESPIRATORY: Mild mostly nonproductive cough without dyspnea CARDIAC: Negative for chest pain, palpitations, murmurs, or syncopal episodes. GI: No nausea or diarrhea dysphagia is noted upon SKIN: See HPI PHYSICAL EXAM: VS: BP 122/77 Pulse 81 Temp 36.4 C (97.6 F) Resp 16 Wt 76.7 kg (169 lb) SpO2 99% BMI 24.01 kg/m KPS: 90 General Appearance: Well appearing, alert, in no acute distress, well-hydrated, well nourished.. Skin: Mild to moderate hyperpigmentation right neck no open areas. Mild to moderate fibrosis stable Oropharynx: Lips, mucosa, and tongue without suspicious area. Bimanual exam without palpable finding. No mucositis Neck: Mild to moderate fibrosis right neck which has not changed. No suspicious nodularity Lungs: Lungs clear to auscultation. No wheezing, rhonchi, rales. Neuro: Alert and oriented x3. No cranial nerve deficits appreciable. Lymph Nodes: No cervical lymphadenopathy, No supraclavicular lymphadenopathy and No axillary lymphadenopathy.. 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 Patient doing well. PET without evidence of any residual disease or new findings. Continue conservative care for skin issues which are mild as well as dry mouth. Continue close surveillance, plan to see patient back in 8 weeks for follow-up. Signed by: Kathrine Carpenter MD cc: Gildardo Lacy MD ([facility]) [address] [place] [id number] Bagley documented in this encounter [facility] 12-23-2021 History of Present illness Narrative RADIOLOGY SERVICE PROGRESS NOTE SERVICE DATE: 12/23/2021 SERVICE TIME: 9:50 AM PATIENT IDENTITY VERIFICATION COMPLETED USING TWO (2) STANDARD IDENTIFIERS: Name and Date of confirmed by patient verbally POST EXAM PIV STATUS: Discontinued PROCEDURE TYPE: NM INJECT: PET/CT HEAD, NECK, BODY SCAN. 10.8 mCi F18 FDG. No other medications given.. ADMINISTRATION TIME: 901 PATIENT DISCHARGED TO: Ambulatory patient, left PA department area. A Diagnostic radioactive procedure has taken place, with no further precautions necessary other than routine body substance precautions. More information regarding radiation safety can be found using this link: [email or web address] SIGNATURE: RT Jose Alfredo(R) PATIENT NAME: Alejo Floyd DATE: December 23, 2021 TIME: 9:50 AM PAGER/CONTACT #: documented in this encounter [facility] 11-26-2021 Miscellaneous Notes The following approved medication requests have been transmitted electronically. Signed Prescriptions Disp Refills diphenhydrAMINE 12.5 mg/5 mL lidocaine visc 2% MAALOX 200-200-20 mg/5 mL nystatin prednisoLONE 15 mg/5 mL oral liquid 1:1:1:1:1 (CPD) 240 mL 1 Sig: Take 5 mL by mouth every 6 hours as needed. Swish and swallow Authorizing Provider: ANTHONY WEAVER PA-C Alejo called requesting a prescription for magic mouthwash. He has c/o continued sore and scratchy throat. He denies mouth sores or fever. He also c/o difficulty swallowing. He states he has lost some weight and is continuing to drink boost/ensure supplements. Documented weight appears to be stable for the last 2 months. PET scan scheduled 12/23/21, follow up with Dr. Carpenter 12/26/21 and follow up with Dr. Cash 01/16/22. If you are in agreement to prescribe magic mouthwash, Alejo would like to fruit or nut picker the prescription at our pharmacy tomorrow. Nathaly will you please address this encounter as Dr. Carpenter and Dr. Cash are both on vacation this week. Please advise. Thanks Erika Martino LPN documented in this encounter 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 Course 2: DATES OF TREATMENT: 08/12/21-09/26/21 AREA TREATED: Right Neck DELIVERED DOSE: Right Neck: 6,000 cGy in 30 fractions, 4 Arcs, IMRT, 6MV with daily CBCT TOTAL: 6,000 cGy in 30 fractions ELAPSED TIME: 45 days. INTERVAL HISTORY: Recent increased lower back pain after reaching for object. Denies radicular component. Denies weakness. Also recent upper airway congestion with dysphagia/odynophagia however this is improving for him. ALLERGIES No Known Allergies MEDICATIONS: tiZANidine (ZANAFLEX) 4 mg tablet take 1/2 TO 1 tablet by mouth three times a day if needed keTORolac (TORADOL) 10 mg tablet take 1 tablet by mouth three times a day if needed for pain for 5 days BREO ELLIPTA 100-25 mcg/dose inhaler INHALE 1 PUFF BY MOUTH ONCE DAILY ondansetron orally disintegrating (ZOFRAN ODT) 8 mg disintegrating tablet Take 1 tablet by mouth every 8 hours as needed for nausea/vomiting. prochlorperazine (COMPAZINE) 10 mg tablet Take 1 tablet by mouth every 6 hours as needed. megestrol (MEGACE) 400 mg/10 mL (40 mg/mL) suspension take 20 milliliters by mouth once daily aspirin, enteric coated (ASPIRIN, ENTERIC COATED) 81 mg EC tablet Take 81 mg by mouth once daily. omeprazole magnesium (PRILOSEC ORAL) Take 40 mg by mouth once daily. sildenafil (REVATIO) 20 mg tablet Take 20 mg by mouth once daily. oxyCODONE-acetaminophen (PERCOCET) 5-325 mg tablet Take 1 tablet by mouth four times daily as needed. albuterol (PROVENTIL) 2.5 mg /3 mL (0.083 %) nebulizer solution 2.5 mg. albuterol HFA (PROAIR HFA) 90 mcg/actuation inhaler q 4 HR. amiodarone (PACERONE) 200 mg tablet Take 200 mg by mouth once daily. amLODIPine (NORVASC) 5 mg tablet Take 5 mg by mouth once daily. buPROPion XL (WELLBUTRIN XL) 300 mg 24 hr tablet Take 300 mg by mouth once daily. DULoxetine (CYMBALTA) 30 mg capsule q 24 HR. fluticasone (FLONASE) 50 mcg/actuation nasal spray 2 Sprays once daily. ipratropium-albuterol (DUONEB) 0.5 mg-3 mg(2.5 mg base)/3 mL nebu Inhale 3 mL as instructed as needed for wheezing/shortness of breath. metoprolol succinate ER (TOPROL XL) 50 mg 24 hr tablet q 24 HR. potassium chloride SR (MICRO-K) 10 mEq CR capsule Take 10 mEq by mouth. rizatriptan (MAXALT) 10 mg tablet Take 10 mg by mouth once daily. topiramate (TOPAMAX) 50 mg tablet Take 50 mg by mouth once daily. zolpidem (AMBIEN) 10 mg Take 10 mg by mouth at bedtime as needed. white petrolatum (AQUAPHOR) 41 % topical ointment Apply to affected area twice daily. REVIEW OF SYSTEMS: GENERAL: SEE HPI. Denies fever. Energy level improving. HEENT: Negative for sudden vision or hearing changes. NECK: Feels tight no significant pain RESPIRATORY: Mild mostly nonproductive cough without dyspnea CARDIAC: Negative for chest pain, palpitations, murmurs, or syncopal episodes. GI: No nausea or diarrhea dysphagia is noted upon SKIN: See HPI PHYSICAL EXAM: VS: BP 119/72 Pulse 117 Temp 36.6 C (97.9 F) (Temporal) Resp 18 Wt 74.9 kg (165 lb 3.2 oz) SpO2 97% BMI 23.47 kg/m KPS: 90 General Appearance: Well appearing, alert, in no acute distress, well-hydrated, well nourished.. Skin: Mild to moderate hyperpigmentation right neck no open areas. Mild to moderate fibrosis stable Oropharynx: Lips, mucosa, and tongue without suspicious area. Bimanual exam without palpable finding Neck: Mild to moderate fibrosis right neck. No suspicious nodularity Lungs: Lungs clear to auscultation. No wheezing, rhonchi, rales. Neuro: Alert and oriented x3. No cranial nerve deficits appreciable. Lymph Nodes: No cervical lymphadenopathy, No supraclavicular lymphadenopathy and No axillary lymphadenopathy.. 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 Patient continues to well without clinical evidence of recurrence. He has some soft tissue changes related to radiation treatments but these are stable. Recommend further follow-up with PET scan in 4 weeks. Signed by: Kathrine Carpenter MD cc: Gildardo Lacy MD ([facility]) [address] [place] [address] Dr. Bagley documented in this encounter [facility] 10-16-2021 Note MR#: [id number] I [facility] Pt. Name: Alejo Floyd Admitted: 09/19/2021 Discharged: 09/20/2021 Date of : 1960 Physician: Zarina Morgan M.D. DISCHARGE SUMMARY ADMISSION DIAGNOSIS: Small bowel obstruction. DISCHARGE DIAGNOSIS: Small-bowel obstruction, resolving. No consults. No procedures. HISTORY OF PRESENT ILLNESS: 61-year-old male presenting to [facility] as direct admission. The patient presented reporting 3-day history of increased abdominal pain, nausea, vomiting, and diarrhea. The patient has a past medical history significant for hypertension, COPD, emphysema, esophageal cancer, multiple hernias, and multiple prior surgeries. The patient is in no acute distress and reports diffuse abdominal pain and bloating. The patient has NG in place. The patient was admitted to med/surge floor and shortly after on the same day of admission began having bowel movements. The patient was discharged home after resolving small-bowel obstruction in stable condition. The patient was not given any discharge medications. DISCHARGE INSTRUCTIONS: Were to continue bowel regimen and monitor symptoms. There were no pending labs. Follow up with trauma clinic on 10/01/2021 at 1:50 p.m. Electronically Signed by: Zarina Morgan M.D. 10/16/2021 02:10 P ___ Zarina Morgan M.D. I personally saw this patient on the day of the encounter, performed the womack portion(s) of the service and participated in the management and confirm the resident's documentation. Please note there may be an additional personal documentation from me. Date Dict: 10/15/2021/05:05 Amrik/Hood Sepulveda PA-C Date Trans: 10/16/2021 07:27 Carrie/radha [id number] cc: Gildardo Lacy M.D. [address] [facility] [address] [facility] 10-04-2021 History of Present illness Narrative Nutrition Therapy Reassessment This visit was performed via telehealth due to the COVID-19 epidemic as an effort to protect patients and minimize exposure. Consent from patient received to conduct visit via telehealth. This Team Access Model visit is a phone encounter. It required patient-provider interaction for the medical decision making as documented below. RECOMMENDED MALNUTRITION DIAGNOSIS: NO MALNUTRITION IDENTIFIED Some elements copied from my note on 09/25/2021, have been updated and all reflect current decision making from today, 10/04/2021 Patient states reason for visit: nutrition counseilng Patient's symptoms are: GI: diarrhea Nutrition Diagnosis: Increased protein and energy needs related to hypermetabolic disease process as evidenced by need for weight maintenance and preservation of muscle mass. Nutrition Intervention: -continue small frequent meals -encouraged adequate hydration -continue supplementation -Ensure Enlive 2x per day; take in afternoon and evening for better tolerance. (date of last encounter September 25, 2021): -continue small frequent meals -encouraged adequate hydration -continue supplementation -Ensure Enlive 2-3x per day Nutrition Monitoring & Evaluation: 1. PO Intake 2. Wt status 3. Supplement tolerance/acceptance 4. Biochemical Markers 5. Plan of care Patient met goal(s): Yes Anthropometrics: Height: Last 1 Encounter Ht Readings: Date: Ht: 10/03/2021 178.7 cm (5' 10.35 ) Current weight: Last 1 Encounter Wt Readings: Date: Wt: 10/03/2021 75.4 kg (166 lb 3.2 oz) Estimated body mass index is 23.61 kg/m as calculated from the following: Height as of 10/03/21: 178.7 cm (5' 10.35 ). Weight as of 10/03/21: 75.4 kg (166 lb 3.2 oz). Resting Metabolic Rate: 1574 Weight Loss: 3.1kg (4%) x 1 mo- not considered significant Dosing Weight: 75.4 kg Estimated kilocalorie needs: 3520-2899 kilocalories determined by 25-30 kcal/kg Estimated protein needs: 75-90 grams determined by 1.0-1.2 g/kg Dosing weight Estimated fluid needs: ~4424-9279 milliliters based on 1 mL per kcal (unless otherwise noted) Educational materials provided: none this visit READINESS TO LEARN Cognitive ability: Alert and oriented Motivation to learn: Interested Family support: Unable to assess - Family not present Instruction provided to: Patient Patient learns best by: Multiple Methods Factors affecting learning: None Physical limitations affecting learning: None Pt presents for phone consult regarding nutrition counseling for oropharynx cancer. Pt is s/p chemoradiation. Pt denies any chewing/swallowing issues, c/o current D. Pt denies food allergies/intolerances. Appetite appears to be good, Intakes are good. Pt continues to consume small frequent meals and use ONS two times per day. Pt reports diarrhea (loose, water stool) after consuming ONS with bkfst, bu states drinking uf he drinks it in the afternoon and/or evening he has no symptoms. Instructed pt to continue consuming in afternoon and/or evening and adjust time of day as needed based on symptoms. Pt verbalized understanding. Thank you for allowing me to participate in the care of this pt. NUTRITION FOCUSED PHYSICAL EXAM: Unable to perform exam due to patient unavailable, will re-attempt during reassessment. Potential Signs of Inflammation: chronic condition Allergies: Patient has no known allergies. Medications: Current Outpatient Medications Medication Sig Dispense Refill BREO ELLIPTA 100-25 mcg/dose inhaler INHALE 1 PUFF BY MOUTH ONCE DAILY ondansetron orally disintegrating (ZOFRAN ODT) 8 mg disintegrating tablet Take 1 tablet by mouth every 8 hours as needed for nausea/vomiting. 90 tablet 1 prochlorperazine (COMPAZINE) 10 mg tablet Take 1 tablet by mouth every 6 hours as needed. 100 tablet 1 megestrol (MEGACE) 400 mg/10 mL (40 mg/mL) suspension take 20 milliliters by mouth once daily 480 mL 1 white petrolatum (AQUAPHOR) 41 % topical ointment Apply to affected area twice daily. 1 g 0 aspirin, enteric coated (ASPIRIN, ENTERIC COATED) 81 mg EC tablet Take 81 mg by mouth once daily. omeprazole magnesium (PRILOSEC ORAL) Take 40 mg by mouth once daily. sildenafil (REVATIO) 20 mg tablet Take 20 mg by mouth once daily. oxyCODONE-acetaminophen (PERCOCET) 5-325 mg tablet Take 1 tablet by mouth four times daily as needed. albuterol (PROVENTIL) 2.5 mg /3 mL (0.083 %) nebulizer solution 2.5 mg. albuterol HFA (PROAIR HFA) 90 mcg/actuation inhaler q 4 HR. amiodarone (PACERONE) 200 mg tablet Take 200 mg by mouth once daily. amLODIPine (NORVASC) 5 mg tablet Take 5 mg by mouth once daily. buPROPion XL (WELLBUTRIN XL) 300 mg 24 hr tablet Take 300 mg by mouth once daily. DULoxetine (CYMBALTA) 30 mg capsule q 24 HR. fluticasone (FLONASE) 50 mcg/actuation nasal spray 2 Sprays once daily. ipratropium-albuterol (DUONEB) 0.5 mg-3 mg(2.5 mg base)/3 mL nebu Inhale 3 mL as instructed as needed for wheezing/shortness of breath. metoprolol succinate ER (TOPROL XL) 50 mg 24 hr tablet q 24 HR. potassium chloride SR (MICRO-K) 10 mEq CR capsule Take 10 mEq by mouth. rizatriptan (MAXALT) 10 mg tablet Take 10 mg by mouth once daily. topiramate (TOPAMAX) 50 mg tablet Take 50 mg by mouth once daily. zolpidem (AMBIEN) 10 mg Take 10 mg by mouth at bedtime as needed. No current facility-administered medications for this visit. Need for Follow up: prn Referred/Supervised by: Shailesh/Shailesh FREEMAN Billing Type: Re-assess/15 min 1 unit Signed by: Rylee Wilhelm MS, RDN, LD documented in this encounter [facility] 10-03-2021 Nurse Note Patient would like something for his diarrhea. Myesha Garcia MA documented in this encounter [facility] 10-03-2021 History of Present illness Narrative PATIENT NAME: Alejo Floyd DATE: 10/03/2021 PRIMARY CARE PHYSICIAN: Dr. Gildardo Lacy OTHER PHYSICIANS: Dr. Bagley, Dr. Carpenter, Dr. Olivarez Portions of this encounter note have been copied from the note from 09/23/2021 and has been updated where appropriate, and reflect my current medical decision making from today. CC: This is a 61 year old male with recurrent head and neck cancer, seen for scheduled follow-up. INTERIM HISTORY: The patient received his final cycle of chemotherapy on 09/24/2021, and completed his radiation therapy on 09/26/2021. The patient developed mild discomfort in his right neck area, otherwise tolerated treatment well. On follow-up today he complains of fatigue, and his legs feel heavy . He has had no recurrent nausea/vomiting or abdominal pain. He does complain of diarrhea after drinking Ensure. Despite the above the patient getting along fairly well overall. MEDICATIONS: Current Outpatient Medications Medication Sig BREO ELLIPTA 100-25 mcg/dose inhaler INHALE 1 PUFF BY MOUTH ONCE DAILY ondansetron orally disintegrating (ZOFRAN ODT) 8 mg disintegrating tablet Take 1 tablet by mouth every 8 hours as needed for nausea/vomiting. prochlorperazine (COMPAZINE) 10 mg tablet Take 1 tablet by mouth every 6 hours as needed. megestrol (MEGACE) 400 mg/10 mL (40 mg/mL) suspension take 20 milliliters by mouth once daily white petrolatum (AQUAPHOR) 41 % topical ointment Apply to affected area twice daily. aspirin, enteric coated (ASPIRIN, ENTERIC COATED) 81 mg EC tablet Take 81 mg by mouth once daily. omeprazole magnesium (PRILOSEC ORAL) Take 40 mg by mouth once daily. sildenafil (REVATIO) 20 mg tablet Take 20 mg by mouth once daily. oxyCODONE-acetaminophen (PERCOCET) 5-325 mg tablet Take 1 tablet by mouth four times daily as needed. albuterol (PROVENTIL) 2.5 mg /3 mL (0.083 %) nebulizer solution 2.5 mg. albuterol HFA (PROAIR HFA) 90 mcg/actuation inhaler q 4 HR. amiodarone (PACERONE) 200 mg tablet Take 200 mg by mouth once daily. amLODIPine (NORVASC) 5 mg tablet Take 5 mg by mouth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 lymphadenopathy. However, small residual right level 2 cervical lymph node associated with mild FDG uptake, probably reactive process. 2. CHEST: Patchy areas of groundglass opacity in the bilateral lung base probably active inflammatory, infectious process. Interval increased size and metabolism of mediastinal lymph nodes are probably reactive in nature. Follow-up is recommended. 3. ABDOMEN/PELVIS: No evidence of focal uptake to suggest FDG avid neoplastic process.. 4. EXTREMITIES/SKELETON: No evidence of focal uptake to suggest FDG avid neoplastic process.. 08/10/2020 PET SCAN IMPRESSION: 1. HEAD and NECK: FDG avid soft tissue mass in the tongue base is consistent with neoplastic process. Bilateral level 2 and the right level 3 metastatic lymphadenopathy. 2. CHEST: No evidence of focal uptake to suggest FDG avid neoplastic process.. 3. ABDOMEN/PELVIS: No evidence of focal uptake to suggest FDG avid neoplastic process.. 4. EXTREMITIES/SKELETON: No evidence of focal uptake to suggest FDG avid neoplastic process.. 07/13/2020 Chest x-ray ([facility]) No acute disease 07/09/2020 CT neck ([facility]) 3.6 x 3.4 x 2.6 cm infiltrative mass within the right base of tongue extending into the right vallecula and right area epiglottic folds, compatible with squamous carcinoma. There are 2 necrotic lymph nodes noted on the right levels 2 and 5. Severe pulmonary emphysema. ASSESSMENT/PLAN: 1. 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 PET scan obtained 08/10/2020 revealed no evidence of distant metastases. PEG tube was placed on 08/08/2020 for enteral nutrition. First-line treatment with definitive chemoradiation consisting of radiation therapy Thursday through Thursday plus cisplatin 40 mg/m2 weekly started on 08/14/2020. The patient completed cisplatin cycle 7 on 09/25/2020. Radiation finished on 09/28/2020 (7000 cGy in 35 fractions). The patient tolerated his treatment relatively well and had a complete clinical response. Due to local irritation the PEG tube was removed in November 2020. December 2020 the patient presented with severe odynophagia, and ENT examination on 12/26/2020 revealed an apparent necrotic ulcer at the tip of the epiglottis. PET scan 12/25/2020 revealed no obvious areas of disease. Biopsy of the epiglottic lesion on 02/05/2021 was benign. The patient underwent a repeat PET scan on 04/05/2021 and was found to have an increased size of a right neck the level 2 lymph node consistent with recurrent disease. FNA obtained 05/02/2021 confirmed recurrent squamous cell carcinoma. The patient was referred to [facility] (Dr. Olivarez), and subsequently underwent a right radical neck dissection on 06/25/2021. 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 The patient tolerated surgery well with no immediate complications. Currently he is clinically stable and OSKAR. Options for further management were discussed at length with the patient. Adjuvant therapy is indicated. Standard of care would be reirradiation plus/minus concurrent systemic therapy. He would be eligible for current protocol (ECOG QR9252) randomizing patients to receive reirradiation plus a [place] based chemo versus reirradiation plus pembrolizumab versus pembrolizumab alone. However, the patient declined entering the protocol. After much discussion we have elected to proceed with reirradiation plus chemotherapy consisting of carboplatin AUC of 2 weekly x 6. The patient has been seen by Dr. Carpenter, and is scheduled to start radiation on 08/12/2021. I will see him back on that day as well at which time we will start chemotherapy. The patient will continue his current oral nutrition regimen. We will refer to our dietitian to assist with management throughout his treatment. 2. Chronic obstructive pulmonary disease (HCC) - ICD9: 496, ICD10: J44.9 Long history of tobacco abuse, currently trying to quit. He has mild to moderate COPD. Continue management per PCP/pulmonary. 3. Heart disease - ICD9: 429.9, ICD10: I51.9 History of dysrhythmia, stable on current medications. Continue management per PCP/cardiology. 4. Anxiety and depression - ICD9: 300.00, 311, ICD10: F41.9, F32.9 Continue management per PCP. 5. Hypertension - ICD9: 401.9, ICD10: I10; Tachycardia - ICD9: 785.0, ICD10: R00.0 Blood pressure stable on current medications, continue per PCP. Esdras Cash MD CC: Dr. Bagley documented in this encounter [facility] 08-01-2021 History of Present illness Narrative ALEJO FLOYD Tamie [id number] 08/01/2021 [facility] Radiation Oncology Department SIMULATION NOTE DATE OF SIMULATION: 08/01/2021 THERAPIST: Millie Zaman MACHINE: Yesware DIAGNOSIS: Malignant neoplasm of base of lracozD21 AREA: head/neck CONTRAST: IV <Select> 100ML OF OMNI 300 WAS ADMINISTERED VIA THE RT AC Consent in Epic: Yes PATIENT POSITION: Supine. FIXATION DEVICE: In order to achieve accurate and reproducible treatments, the patient is immobilized with THE ORFIT BODYBOARD, 9 DEGREE WEDGE HEEL INFERIOR, BLUE HEAD PAD, SBRT KNEE SPONGE, CUSTOM 5 POINT MASK, CUSTOM MOUTHPIECE A time-out was conducted and recorded by the therapist. CT scan was completed for target localization and planning. Field arrangement will be determined after plan has been completed. The patient is scheduled for a verification simulation on the treatment machine to ensure proper set-up and field arrangement is correct prior to the first treatment of primary and boost solo if applicable. Patient education will be completed per nursing. Electronically Signed Сергей Carpenter M.D. / NIK 24:32 PM documented in this encounter [facility] 08-01-2021 History of Present illness Narrative ALEJO FLOYD Tamie [id number] 08/01/2021 [facility] Department of Radiation Oncology Treatment Planning Note For reasons stated in the consult note, Alejo Floyd is a candidate for radiation therapy. Based on review and interpretation of the relevant diagnostic studies together with the exam findings, Alejo Floyd was simulated on 08/01/2021 at which time the target volume and/or requisite solo were delineated, as indicated in the simulation note, to be treated according to the prescription. The treatment target and organs at risk were contoured on the simulation scan USING THE FUSED PET /. Special consideration to these and other structures was given in light of the potential for increased toxicities of combined chemoradiation and re-treatment of a previously irradiated site. After reviewing multiple treatment plans with dosimetry, the best plan was approved to deliver the prescribed course of radiation to the target area using inverse planning to allow for the best isodose distribution, treating to the 96.8% isodose line with 6MV and 4 solo. Custom MLC asym jaws for IMRT were the treatment devices used to shape/modify the beams. Limiting dose to normal tissue was confirmed upon review of the calculated dose volume histogram. IMRT planning was used because it best met the dose/volume constraints for the organs at risk for this patient, better than what could be achieved using conventional or 3D planning. The specific dose requirements for the PTV, organs at risk and dose-volume histograms are contained in this treatment plan and/or elsewhere in the medical record. A completed summary of this plan dated 08/09/21 incorporated herein by reference includes dose, beam arrangements, energy, blocking, isodose distribution, and/or ports and DVH. Electronically Signed Сергей Carpenter M.D. 2:17 PM documented in this encounter [facility] 07-30-2021 Miscellaneous Notes Patient requesting a refill on Megace. States he does have 1 bottle left at home. Erika Martino LPN documented in this encounter [facility] 06-20-2021 Note HNO ID: [id number] Author: Cassie Durham, RT(R) Service: Radiology Author Type: Technologist Type: Progress Notes Filed: 06/20/2021 3:33 PM Note Text: Radiology Service Progress Note PATIENT NAME: Alejo Floyd DATE OF SERVICE: June 20, 2021 TIME: 3:33 PM PATIENT IDENTITY VERIFICATION COMPLETED USING TWO (2) IDENTIFIERS: Name and Date of confirmed by patient verbally and Name and Date of confirmed by identification band. FALL SCREENING: Has the patient had 2 falls in the last year or 1 fall with injury or currently using an Ambulatory Assistive Device (Walker, Cane, Wheelchair, Crutches, etc.)? No PATIENT GENDER DATA: Male PATIENT RELEVANT IMPLANT DATA REVIEWED: Not Applicable RADIOLOGY DEPARTMENT: CT; Exam(s) Completed: Chest and Neck PERIPHERAL IV DATA: Site assessment: Clean,Dry and Intact, Site disposition Discontinued SIGNED BY: Cassie Durham, RT(R) June 20, 2021 3:33 PM [facility] 06-04-2021 Note MR#: [id number] I [facility] Pt. Name: Alejo Floyd Admitted: 05/27/2021 Discharged: 05/30/2021 Date of : 1960 Physician: Charles Morgan MD DISCHARGE SUMMARY PAST MEDICAL HISTORY: The patient has a past medical history of hypertension, COPD, , esophageal cancer with remission from December of 2020, a lung mass with recent findings of a lymph node mass in his neck 3 weeks ago, which he is to have a procedure done. He reports to be seen in clinic on 06/03/2021. PAST SURGICAL HISTORY: Splenectomy due to trauma in 2018, removal of a lung mass, cholecystectomy, multiple hernia repairs with mesh. ALLERGIES: No known allergies. SOCIAL HISTORY: Smokes 1-2 packs of cigarettes weekly currently. HOSPITAL COURSE: This is a 60-year-old male, who presented to [facility] as a transfer from [facility] for evaluation of small-bowel obstruction. He presents at the [facility] for evaluation of 2-3 days of constant abdominal pain, which radiated to the back. Reported nausea and vomiting as well as decreased appetite/oral intake with loose stools in the morning, and he has not been passing any stool or gas since the this morning, the morning of 05/27/2021. At [facility], he had a CT of his abdomen and pelvis done, which shows supraumbilical, periumbilical hernias with loops of bowel causing at least a small bowel obstruction. The patient in the past had seen Dr. Trang Morgan in the surgery clinic to evaluate his hernia. As per Dr. Morgan as they were operated on him. Dr. Trang Morgan was the accepting physician, who transferred to [facility]. The patient arrived with the NG tube, nasogastric tube in place. Denied fever, chills, chest pain, shortness of breath, blood in stools, urinary symptoms. His abdomen is soft and mildly distended and moderately tender to palpation without guarding or rebound tenderness. His abdomen did note to have many healed surgical scars. He did have an elevated creatinine on admission what was reported from [facility]. The patient was admitted for his NG tube to low intermittent wall suction to general Med/Surg. He was n.p.o., given IV fluids. KUB ordered in a.m. with serial abdominal exams. Overnight, the patient had a small amount of bilious output and reported passing gas the following morning with improved pain. At that time, his creatinine was 1.38. The patient continuing to be n.p.o. with an NG tube. On the following morning, he had multiple bowel movements overnight. Denied nausea, pain, , and appetite. Restarted on a clear liquid diet and tolerated. It was advanced to a soft diet as tolerated. As the patient's symptoms resolved, the patient requested to be discharged due to wanting to be able to attend his surgery on time and had nonbilious, as the patient had multiple bowel movements, was passing gas, tolerated soft diet, he was discharged on 05/29/2021, and was reported to follow up with his surgeon from his previous surgeries. The patient was seen and examined on day of discharge and this discharge summary is in conjunction with any daily progress note from the day of discharge. Electronically Signed by: Charles Morgan MD 06/09/2021 07:30 P ___ Charles Morgan MD I have reviewed this discharge summary and confirmed the resident's documentation. Please note that there may be additional documentation from me. Date Dict: 06/03/2021/09:15 P/Luis Miguel Dodd CNP Date Trans: 06/04/2021 07:42 A/radha [id number] cc: Gildardo Lacy M.D. [address] [place] [address] [facility] 04-05-2021 History of Present illness Narrative RADIOLOGY SERVICE PROGRESS NOTE SERVICE DATE: 04/05/2021 SERVICE TIME: 9:12 AM PATIENT IDENTITY VERIFICATION COMPLETED USING TWO (2) STANDARD IDENTIFIERS: Name and Date of confirmed by patient verbally POST EXAM PIV STATUS: Discontinued PROCEDURE TYPE: NM INJECT: PET/CT BODY SCAN. 10.3 mCi F18 FDG. No other medications given.. ADMINISTRATION TIME: 906 PATIENT DISCHARGED TO: Ambulatory patient, left PA department area. A Diagnostic radioactive procedure has taken place, with no further precautions necessary other than routine body substance precautions. More information regarding radiation safety can be found using this link: [email or web address] SIGNATURE: RT Jose Alfredo(Phil) PATIENT NAME: Alejo Floyd DATE: April 05, 2021 TIME: 9:12 AM PAGER/CONTACT #: documented in this encounter [facility] 04-05-2021 Nurse Note Radiology Service Progress Note DATE OF SERVICE: April 05, 2021 TIME: 9:08 AM PATIENT IDENTITY VERIFICATION COMPLETED USING TWO (2) STANDARD IDENTIFIERS: Name and Date of confirmed by patient verbally. FALL SCREENING: Has the patient had 2 falls in the last year or 1 fall with injury or currently using an Ambulatory Assistive Device (Walker, Cane, Wheelchair, Crutches, etc.)? No PATIENT GENDER DATA: Male ALLERGIES: Reviewed and unchanged EXAM: CT -CONTRAST INDUCED NEPHROPATHY RISK FACTORS: Not applicable CREATININE: Creatinine Date Value Ref Range Status 03/20/2021 1.09 0.73 - 1.22 mg/dL Final 01/31/2021 0.93 0.73 - 1.22 mg/dL Final 12/25/2020 0.81 0.73 - 1.22 mg/dL Final eGFR-All Other Races Date Value Ref Range Status 03/20/2021 >60 . Final Comment: eGFR (Estimated GFR) Units of measure: mL/min/1.73 meters squared eGFR is derived from the reexpressed MDRD Study equation using the following parameters: serum creatinine, age, gender and race. The creatinine assay has been calibrated to be traceable to IDMS. An eGFR <60 mL/min/1.73m2 for >3 months is consistent with chronic kidney disease. Refer to KDOQI guidelines for clinical interpretation. In patients with unstable renal function, e.g. those with acute kidney injury, the eGFR may not accurately reflect actual GFR. eGFR- Date Value Ref Range Status 03/20/2021 >60 Final P.O.C.T. RESULTS: POC done: Yes, See Lab Tab April 05, 2021 TREATMENT: N/A IV SITE: Ambulatory: A peripheral IV was started in the Left hand with a Angio cath: 22 gauge. IV SITE APPEARANCE: Clean,Dry and Intact SIGNATURE: Marina Del Rio RN PATIENT NAME: Alejo Floyd DATE: April 05, 2021 TIME: 9:08 AM [facility] Work Phone: 04-05-2021 Nurse Note Radiology Service Progress Note DATE OF SERVICE: April 05, 2021 TIME: 9:08 AM PATIENT IDENTITY VERIFICATION COMPLETED USING TWO (2) STANDARD IDENTIFIERS: Name and Date of confirmed by patient verbally. FALL SCREENING: Has the patient had 2 falls in the last year or 1 fall with injury or currently using an Ambulatory Assistive Device (Walker, Cane, Wheelchair, Crutches, etc.)? No PATIENT GENDER DATA: Male ALLERGIES: Reviewed and unchanged EXAM: CT -CONTRAST INDUCED NEPHROPATHY RISK FACTORS: Not applicable CREATININE: Creatinine Date Value Ref Range Status 03/20/2021 1.09 0.73 - 1.22 mg/dL Final 01/31/2021 0.93 0.73 - 1.22 mg/dL Final 12/25/2020 0.81 0.73 - 1.22 mg/dL Final eGFR-All Other Races Date Value Ref Range Status 03/20/2021 >60 . Final Comment: eGFR (Estimated GFR) Units of measure: mL/min/1.73 meters squared eGFR is derived from the reexpressed MDRD Study equation using the following parameters: serum creatinine, age, gender and race. The creatinine assay has been calibrated to be traceable to IDMS. An eGFR <60 mL/min/1.73m2 for >3 months is consistent with chronic kidney disease. Refer to KDOQI guidelines for clinical interpretation. In patients with unstable renal function, e.g. those with acute kidney injury, the eGFR may not accurately reflect actual GFR. eGFR- Date Value Ref Range Status 03/20/2021 >60 Final P.O.C.T. RESULTS: POC done: Yes, See Lab Tab April 05, 2021 TREATMENT: N/A IV SITE: Ambulatory: A peripheral IV was started in the Left hand with a Angio cath: 22 gauge. IV SITE APPEARANCE: Clean,Dry and Intact SIGNATURE: Marina Del Rio RN PATIENT NAME: Alejo Floyd DATE: April 05, 2021 TIME: 9:08 AM documented in this encounter [facility] 11-30-2014 Chief complaint Narrative - Reported ALEJO FLOYD is being seen for a consultation for SRE.61-year-old -[place] Citizen who is in my office for the first time to establish relationship with cardiology. The patient has history of active tobacco abuse and PAD involving mostly the left femoral artery where he had stenting done several years ago in [place]. He has no previous cardiac catheterizations or myocardial ischemia evaluation. He does have history of arrhythmias of unknown nature and is currently on amiodarone therapy. He does not recall having atrial fibrillation and has no previous cardioversions. We have no previous records to confirm the indication for amiodarone therapy. He does have COPD and uses inhalers. Has been on metoprolol but no DION inhibitor's and no calcium channel blockers. He has no hypertension at the present time. His blood pressure in the office today was below normal. He has no syncope orthopnea PND or lower extremity edema and currently has no claudication. He has recent lower extremity ultrasound revealing occlusion of the left femoral artery from the origin to the level of the knee. He seemed to have compensated for that with collaterals also had PVR study which I requested copies of. He has no gastrointestinal symptoms no hemoptysis no dysuria or hematuria no peptic ulcer disease no previous strokes but has history of TIA. EKG reveals sinus rhythm with diffuse ST and T changes. He does complain of dyspnea on exertion. Possibilities include CAD/COPD or other etiologies. Examination was remarkable for mild hypotension and mildly diminished breath soundsAssessment/recommendations: 1 significant PAD most affecting the left femoral artery has had previous stenting but recent ultrasound showed occlusion of the left femoral artery. He remains asymptomatic. Encouraged the patient to stop smoking and to walk on daily basis to recruit more collaterals. Since he does not have symptoms we will not initiate medical therapy.2 abnormal EKG with dyspnea. Patient will need to have evaluation for ischemic heart disease and left ventricular ejection fraction valvular heart disease. Therefore Lexiscan MPI and echocardiograms are scheduled.3 patient has history of cardiac arrhythmias of unknown nature. He is currently on amiodarone. If his noninvasive testing come back unremarkable I will discontinue the amiodarone. The long-term side effect of amiodarone were discussed with the patient and unfortunately has not been having any testing to assess for amiodarone toxicity.4 patient has high depression score he is currently on medical therapy and he discussed this regularly with his PCP.5 COPD from active tobacco use. The patient was advised to quit smoking completely. He does not follow with pulmonary medicine6 the patient's lipid status is unknown we will check his lipid profile. Given his vascular disease he would likely need to be on statin7 history of TIA, currently on aspirin. He would likely benefit from statin therapy [facility] Work Phone: 11-29-2014 Chief complaint Narrative - Reported ALEJO FLOYD is being seen for a consultation for SRE.61-year-old -[place] who is in my office for the first time to establish relationship with cardiology. The patient has history of active tobacco abuse and PAD involving mostly the left femoral artery where he had stenting done several years ago in [place]. He has no previous cardiac catheterizations or myocardial ischemia evaluation. He does have history of arrhythmias of unknown nature and is currently on amiodarone therapy. He does not recall having atrial fibrillation and has no previous cardioversions. We have no previous records to confirm the indication for amiodarone therapy. He does have COPD and uses inhalers. Has been on metoprolol but no DION inhibitor's and no calcium channel blockers. He has no hypertension at the present time. His blood pressure in the office today was below normal. He has no syncope orthopnea PND or lower extremity edema and currently has no claudication. He has recent lower extremity ultrasound revealing occlusion of the left femoral artery from the origin to the level of the knee. He seemed to have compensated for that with collaterals also had PVR study which I requested copies of. He has no gastrointestinal symptoms no hemoptysis no dysuria or hematuria no peptic ulcer disease no previous strokes but has history of TIA. EKG reveals sinus rhythm with diffuse ST and T changes. He does complain of dyspnea on exertion. Possibilities include CAD/COPD or other etiologies. Examination was remarkable for mild hypotension and mildly diminished breath soundsAssessment/recommendations: 1 significant PAD most affecting the left femoral artery has had previous stenting but recent ultrasound showed occlusion of the left femoral artery. He remains asymptomatic. Encouraged the patient to stop smoking and to walk on daily basis to recruit more collaterals. Since he does not have symptoms we will not initiate medical therapy.2 abnormal EKG with dyspnea. Patient will need to have evaluation for ischemic heart disease and left ventricular ejection fraction valvular heart disease. Therefore Lexiscan MPI and echocardiograms are scheduled.3 patient has history of cardiac arrhythmias of unknown nature. He is currently on amiodarone. If his noninvasive testing come back unremarkable I will discontinue the amiodarone. The long-term side effect of amiodarone were discussed with the patient and unfortunately has not been having any testing to assess for amiodarone toxicity.4 patient has high depression score he is currently on medical therapy and he discussed this regularly with his PCP.5 COPD from active tobacco use. The patient was advised to quit smoking completely. He does not follow with pulmonary medicine6 the patient's lipid status is unknown we will check his lipid profile. Given his vascular disease he would likely need to be on statin7 history of TIA, currently on aspirin. He would likely benefit from statin therapy [facility] Work Phone: 11-27-2014 Chief complaint Narrative - Reported ALEJO FLOYD is being seen for a consultation for SRE.61-year-old -[place] who is in my office for the first time to establish relationship with cardiology. The patient has history of active tobacco abuse and PAD involving mostly the left femoral artery where he had stenting done several years ago in [place]. He has no previous cardiac catheterizations or myocardial ischemia evaluation. He does have history of arrhythmias of unknown nature and is currently on amiodarone therapy. He does not recall having atrial fibrillation and has no previous cardioversions. We have no previous records to confirm the indication for amiodarone therapy. He does have COPD and uses inhalers. Has been on metoprolol but no DION inhibitor's and no calcium channel blockers. He has no hypertension at the present time. His blood pressure in the office today was below normal. He has no syncope orthopnea PND or lower extremity edema and currently has no claudication. He has recent lower extremity ultrasound revealing occlusion of the left femoral artery from the origin to the level of the knee. He seemed to have compensated for that with collaterals also had PVR study which I requested copies of. He has no gastrointestinal symptoms no hemoptysis no dysuria or hematuria no peptic ulcer disease no previous strokes but has history of TIA. EKG reveals sinus rhythm with diffuse ST and T changes. He does complain of dyspnea on exertion. Possibilities include CAD/COPD or other etiologies. Examination was remarkable for mild hypotension and mildly diminished breath soundsAssessment/recommendations: 1 significant PAD most affecting the left femoral artery has had previous stenting but recent ultrasound showed occlusion of the left femoral artery. He remains asymptomatic. Encouraged the patient to stop smoking and to walk on daily basis to recruit more collaterals. Since he does not have symptoms we will not initiate medical therapy.2 abnormal EKG with dyspnea. Patient will need to have evaluation for ischemic heart disease and left ventricular ejection fraction valvular heart disease. Therefore Lexiscan MPI and echocardiograms are scheduled.3 patient has history of cardiac arrhythmias of unknown nature. He is currently on amiodarone. If his noninvasive testing come back unremarkable I will discontinue the amiodarone. The long-term side effect of amiodarone were discussed with the patient and unfortunately has not been having any testing to assess for amiodarone toxicity.4 patient has high depression score he is currently on medical therapy and he discussed this regularly with his PCP.5 COPD from active tobacco use. The patient was advised to quit smoking completely. He does not follow with pulmonary medicine6 the patient's lipid status is unknown we will check his lipid profile. Given his vascular disease he would likely need to be on statin7 history of TIA, currently on aspirin. 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 Oropharyngeal dysphagia Dysphagia, oropharyngeal phase Chronic obstructive pulmonary disease, unspecified COPD type (HCC) Heart disease Heart disease, unspecified Cancer related pain Neoplasm related pain (acute) (chronic) Anxiety and depression Dysthymic disorder Severe protein-calorie malnutrition (HCC) Other severe protein-calorie malnutrition Malaise and fatigue Other malaise and fatigue Hypertension, unspecified type Tachycardia Tachycardia, unspecified [facility]* Diagnosis Oropharnyx cancer (HCC)- Primary [facility]* 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 Oropharyngeal dysphagia Dysphagia, oropharyngeal phase Chronic obstructive pulmonary disease, unspecified COPD type (HCC) Heart disease Heart disease, unspecified Cancer related pain Neoplasm related pain (acute) (chronic) Anxiety and depression Dysthymic disorder Severe protein-calorie malnutrition (HCC) Other severe protein-calorie malnutrition Malaise and fatigue Other malaise and fatigue Hypertension, unspecified type Tachycardia Tachycardia, unspecified [facility]* 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 [facility]* Diagnosis Oropharnyx cancer (HCC)- Primary [facility]* 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 [facility]* 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 [facility]* 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 Severe protein-calorie malnutrition (HCC) Other severe protein-calorie malnutrition [facility]* Diagnosis Nausea- Primary Nausea alone Lower abdominal pain Abdominal pain, other specified site 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 [facility]* Diagnosis Lower abdominal pain- Primary Abdominal pain, other specified site 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 Nausea Nausea alone [facility]* Diagnosis Oropharnyx cancer (HCC)- Primary [facility]* 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 [facility] Diagnosis Oropharnyx cancer (HCC)- Primary [facility]* Diagnosis Oropharnyx cancer (HCC)- Primary Malaise and fatigue Other malaise and fatigue Severe protein-calorie malnutrition (HCC) Other severe protein-calorie malnutrition [facility]* Diagnosis Oropharnyx cancer (HCC)- Primary [facility]* Diagnosis Oropharnyx cancer (HCC)- Primary [facility] Diagnosis 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 Diagnosis Oropharnyx cancer (HCC)- Primary 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* Diagnosis Oropharnyx cancer (HCC)- Primary Severe protein-calorie malnutrition (HCC) Other severe protein-calorie malnutrition Chronic obstructive pulmonary disease, unspecified COPD type (HCC) [facility]* Diagnosis PVD (peripheral vascular disease) (CMS/HCC)- Primary Unspecified peripheral vascular disease Abnormal EKG Nonspecific abnormal electrocardiogram (ECG) (EKG) TIA (transient ischemic attack) Unspecified transient cerebral ischemia Current smoker Hyperlipidemia, unspecified hyperlipidemia type Pulmonary emphysema, unspecified emphysema type (CMS/HCC) documented in this encounter [facility] Work Phone: Evaluation note* 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 Malaise and fatigue Other malaise and fatigue Chronic obstructive pulmonary disease, unspecified COPD type (HCC) Severe protein-calorie malnutrition (HCC) Other severe protein-calorie malnutrition Cancer related pain Neoplasm related pain (acute) (chronic) [facility]* Diagnosis 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, face, and neck History of radiation therapy Personal history of irradiation, presenting hazards to health documented in this encounter [facility]No assessment [facility]* Diagnosis Oropharnyx cancer (HCC)- Primary Pharyngeal dysphagia Dysphagia, pharyngeal phase Acute post-operative pain COPD (chronic obstructive pulmonary disease) (HCC) Chronic airway obstruction, not elsewhere classified PVD (peripheral vascular disease) (HCC) Peripheral vascular disease, unspecified Essential hypertension, benign Current smoker Tobacco use disorder Dysphagia Dysphagia, unspecified Pre-operative examination- Primary Preoperative examination, unspecified 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 Essential hypertension, benign Tachycardia Tachycardia, unspecified PVD (peripheral vascular disease) (HCC) Peripheral vascular disease, unspecified 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) Transient ischemic attack (TIA), and cerebral infarction without residual deficits Chronic obstructive pulmonary disease, unspecified COPD type (HCC) Current smoker Tobacco use disorder Gastroesophageal reflux disease, unspecified whether esophagitis present Prediabetes Other abnormal glucose Depression, unspecified depression type Intractable migraine without status migrainosus, unspecified migraine type Insomnia, unspecified type Dysphagia, unspecified type 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, face, and neck History of radiation therapy Personal history of irradiation, presenting hazards to health [facility]* Diagnosis Oropharnyx cancer (HCC)- Primary Pharyngeal dysphagia Dysphagia, pharyngeal phase Acute post-operative pain COPD (chronic obstructive pulmonary disease) (HCC) Chronic airway obstruction, not elsewhere classified PVD (peripheral vascular disease) (HCC) Peripheral vascular disease, unspecified Essential hypertension, benign Current smoker Tobacco use disorder Dysphagia Dysphagia, unspecified Pre-operative examination- Primary Preoperative examination, unspecified 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 Essential hypertension, benign Tachycardia Tachycardia, unspecified PVD (peripheral vascular disease) (HCC) Peripheral vascular disease, unspecified 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) Transient ischemic attack (TIA), and cerebral infarction without residual deficits Chronic obstructive pulmonary disease, unspecified COPD type (HCC) Current smoker Tobacco use disorder Gastroesophageal reflux disease, unspecified whether esophagitis present Prediabetes Other abnormal glucose Depression, unspecified depression type Intractable migraine without status migrainosus, unspecified migraine type Insomnia, unspecified type Dysphagia, unspecified type 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 Severe protein-calorie malnutrition (HCC) Other severe protein-calorie malnutrition documented in this encounter [facility] note* Diagnosis Oropharnyx cancer (HCC)- Primary Pharyngeal dysphagia Dysphagia, pharyngeal phase Acute post-operative pain COPD (chronic obstructive pulmonary disease) (HCC) Chronic airway obstruction, not elsewhere classified PVD (peripheral vascular disease) (HCC) Peripheral vascular disease, unspecified Essential hypertension, benign Current smoker Tobacco use disorder Dysphagia Dysphagia, unspecified Pre-operative examination- Primary Preoperative examination, unspecified 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 Essential hypertension, benign Tachycardia Tachycardia, unspecified PVD (peripheral vascular disease) (HCC) Peripheral vascular disease, unspecified 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) Transient ischemic attack (TIA), and cerebral infarction without residual deficits Chronic obstructive pulmonary disease, unspecified COPD type (HCC) Current smoker Tobacco use disorder Gastroesophageal reflux disease, unspecified whether esophagitis present Prediabetes Other abnormal glucose Depression, unspecified depression type Intractable migraine without status migrainosus, unspecified migraine type Insomnia, unspecified type Dysphagia, unspecified type 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 Malaise and fatigue Other malaise and fatigue documented in this encounter [facility] note* Diagnosis Oropharnyx cancer (HCC)- Primary Pharyngeal dysphagia Dysphagia, pharyngeal phase Acute post-operative pain COPD (chronic obstructive pulmonary disease) (HCC) Chronic airway obstruction, not elsewhere classified PVD (peripheral vascular disease) (HCC) Peripheral vascular disease, unspecified Essential hypertension, benign Current smoker Tobacco use disorder Dysphagia Dysphagia, unspecified Pre-operative examination- Primary Preoperative examination, unspecified 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 Essential hypertension, benign Tachycardia Tachycardia, unspecified PVD (peripheral vascular disease) (HCC) Peripheral vascular disease, unspecified 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) Transient ischemic attack (TIA), and cerebral infarction without residual deficits Chronic obstructive pulmonary disease, unspecified COPD type (HCC) Current smoker Tobacco use disorder Gastroesophageal reflux disease, unspecified whether esophagitis present Prediabetes Other abnormal glucose Depression, unspecified depression type Intractable migraine without status migrainosus, unspecified migraine type Insomnia, unspecified type Dysphagia, unspecified type 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 [facility] note* Diagnosis Oropharnyx cancer (HCC)- Primary Pharyngeal dysphagia Dysphagia, pharyngeal phase Acute post-operative pain COPD (chronic obstructive pulmonary disease) (HCC) Chronic airway obstruction, not elsewhere classified PVD (peripheral vascular disease) (HCC) Peripheral vascular disease, unspecified Essential hypertension, benign Current smoker Tobacco use disorder Dysphagia Dysphagia, unspecified Pre-operative examination- Primary Preoperative examination, unspecified 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 Essential hypertension, benign Tachycardia Tachycardia, unspecified PVD (peripheral vascular disease) (HCC) Peripheral vascular disease, unspecified 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) Transient ischemic attack (TIA), and cerebral infarction without residual deficits Chronic obstructive pulmonary disease, unspecified COPD type (HCC) Current smoker Tobacco use disorder Gastroesophageal reflux disease, unspecified whether esophagitis present Prediabetes Other abnormal glucose Depression, unspecified depression type Intractable migraine without status migrainosus, unspecified migraine type Insomnia, unspecified type Dysphagia, unspecified type 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 [facility] note* Diagnosis Oropharnyx cancer (HCC)- Primary Pharyngeal dysphagia Dysphagia, pharyngeal phase Acute post-operative pain COPD (chronic obstructive pulmonary disease) (HCC) Chronic airway obstruction, not elsewhere classified PVD (peripheral vascular disease) (HCC) Peripheral vascular disease, unspecified Essential hypertension, benign Current smoker Tobacco use disorder Dysphagia Dysphagia, unspecified Pre-operative examination- Primary Preoperative examination, unspecified 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 Essential hypertension, benign Tachycardia Tachycardia, unspecified PVD (peripheral vascular disease) (HCC) Peripheral vascular disease, unspecified 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) Transient ischemic attack (TIA), and cerebral infarction without residual deficits Chronic obstructive pulmonary disease, unspecified COPD type (HCC) Current smoker Tobacco use disorder Gastroesophageal reflux disease, unspecified whether esophagitis present Prediabetes Other abnormal glucose Depression, unspecified depression type Intractable migraine without status migrainosus, unspecified migraine type Insomnia, unspecified type Dysphagia, unspecified type 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 Pre[facility] examination- Primary Unspecified pre-operative examination documented in this encounter [facility]* Diagnosis Essential hypertension (CMS/HCC)- Primary Unspecified essential hypertension Thoracic spondylosis MDD (major depressive disorder), recurrent episode, mild (HCC) (CMS/HCC) Primary insomnia Persistent disorder of initiating or maintaining sleep Chronic obstructive pulmonary disease, unspecified COPD type (CMS/HCC) Chemotherapy-induced peripheral neuropathy (CMS/HCC) Tongue cancer (CMS/HCC) Malignant neoplasm of tongue, unspecified site 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) Encounter for long-term (current) use of medications Encounter for long-term (current) use of other medications Prediabetes Other abnormal glucose Dyslipidemia (CMS/HCC) Other and unspecified hyperlipidemia Screening PSA (prostate specific antigen) Special screening for malignant neoplasm of prostate Other fatigue Primary insomnia Persistent disorder of initiating or maintaining sleep S/P arthroscopy of right shoulder- Primary documented in this encounter [facility]* Diagnosis Essential hypertension (CMS/HCC)- Primary Unspecified essential hypertension Thoracic spondylosis MDD (major depressive disorder), recurrent episode, mild (HCC) (CMS/HCC) Primary insomnia Persistent disorder of initiating or maintaining sleep Chronic obstructive pulmonary disease, unspecified COPD type (CMS/HCC) Chemotherapy-induced peripheral neuropathy (CMS/HCC) Tongue cancer (CMS/HCC) Malignant neoplasm of tongue, unspecified site 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) Encounter for long-term (current) use of medications Encounter for long-term (current) use of other medications Prediabetes Other abnormal glucose Dyslipidemia (CMS/HCC) Other and unspecified hyperlipidemia Screening PSA (prostate specific antigen) Special screening for malignant neoplasm of prostate Other fatigue S/P arthroscopy of right shoulder- Primary documented in this encounter [facility]* Diagnosis Essential hypertension (CMS/HCC)- Primary Unspecified essential hypertension Thoracic spondylosis MDD (major depressive disorder), recurrent episode, mild (HCC) (CMS/HCC) Primary insomnia Persistent disorder of initiating or maintaining sleep Chronic obstructive pulmonary disease, unspecified COPD type (CMS/HCC) Chemotherapy-induced peripheral neuropathy (CMS/HCC) Tongue cancer (CMS/HCC) Malignant neoplasm of tongue, unspecified site 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) Encounter for long-term (current) use of medications Encounter for long-term (current) use of other medications Prediabetes Other abnormal glucose Dyslipidemia (CMS/HCC) Other and unspecified hyperlipidemia Screening PSA (prostate specific antigen) Special screening for malignant neoplasm of prostate Other fatigue Chronic obstructive pulmonary disease, unspecified COPD type (CMS/HCC)- Primary Need for immunization against influenza Need for prophylactic vaccination and inoculation against influenza documented [facility] encounter [facility]* Diagnosis Essential hypertension (CMS/HCC)- Primary Unspecified essential hypertension Thoracic spondylosis MDD (major depressive disorder), recurrent episode, mild (HCC) (CMS/HCC) Primary insomnia Persistent disorder of initiating or maintaining sleep Chronic obstructive pulmonary disease, unspecified COPD type (CMS/HCC) Chemotherapy-induced peripheral neuropathy (CMS/HCC) Tongue cancer (CMS/HCC) Malignant neoplasm of tongue, unspecified site 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) Encounter for long-term (current) use of medications Encounter for long-term (current) use of other medications Prediabetes Other abnormal glucose Dyslipidemia (CMS/HCC) Other and unspecified hyperlipidemia Screening PSA (prostate specific antigen) Special screening for malignant neoplasm of prostate Other fatigue Chronic obstructive pulmonary disease, unspecified COPD type (CMS/HCC)- Primary Need for immunization against influenza Need for prophylactic vaccination and inoculation against influenza DDD (degenerative disc disease), thoracic Degeneration of thoracic or thoracolumbar intervertebral disc documented [facility]* Diagnosis Essential hypertension (CMS/HCC)- Primary Unspecified essential hypertension Thoracic spondylosis MDD (major depressive disorder), recurrent episode, mild (HCC) (CMS/HCC) Primary insomnia Persistent disorder of initiating or maintaining sleep Chronic obstructive pulmonary disease, unspecified COPD type (CMS/HCC) Chemotherapy-induced peripheral neuropathy (CMS/HCC) Tongue cancer (CMS/HCC) Malignant neoplasm of tongue, unspecified site 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) Encounter for long-term (current) use of medications Encounter for long-term (current) use of other medications Prediabetes Other abnormal glucose Dyslipidemia (CMS/HCC) Other and unspecified hyperlipidemia Screening PSA (prostate specific antigen) Special screening for malignant neoplasm of prostate Other fatigue Chronic obstructive pulmonary disease, unspecified COPD type (CMS/HCC)- Primary Need for immunization against influenza Need for prophylactic vaccination and inoculation against influenza S/P arthroscopy of right shoulder- Primary documented in this encounter [facility]* Diagnosis Essential hypertension (CMS/HCC)- Primary Unspecified essential hypertension Thoracic spondylosis MDD (major depressive disorder), recurrent episode, mild (HCC) (CMS/HCC) Primary insomnia Persistent disorder of initiating or maintaining sleep Chronic obstructive pulmonary disease, unspecified COPD type (CMS/HCC) Chemotherapy-induced peripheral neuropathy (CMS/HCC) Tongue cancer (CMS/HCC) Malignant neoplasm of tongue, unspecified site 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) Encounter for long-term (current) use of medications Encounter for long-term (current) use of other medications Prediabetes Other abnormal glucose Dyslipidemia (CMS/HCC) Other and unspecified hyperlipidemia Screening PSA (prostate specific antigen) Special screening for malignant neoplasm of prostate Other fatigue Chronic obstructive pulmonary disease, unspecified COPD type (CMS/HCC)- Primary Need for immunization against influenza Need for prophylactic vaccination and inoculation against influenza Thoracic spondylosis DDD (degenerative disc disease), thoracic Degeneration of thoracic or thoracolumbar intervertebral disc documented in this encounter [facility]* Diagnosis Essential hypertension (CMS/HCC)- Primary Unspecified essential hypertension Thoracic spondylosis MDD (major depressive disorder), recurrent episode, mild (HCC) (CMS/HCC) Primary insomnia Persistent disorder of initiating or maintaining sleep Chronic obstructive pulmonary disease, unspecified COPD type (CMS/HCC) Chemotherapy-induced peripheral neuropathy (CMS/HCC) Tongue cancer (CMS/HCC) Malignant neoplasm of tongue, unspecified site 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) Encounter for long-term (current) use of medications Encounter for long-term (current) use of other medications Prediabetes Other abnormal glucose Dyslipidemia (CMS/HCC) Other and unspecified hyperlipidemia Screening PSA (prostate specific antigen) Special screening for malignant neoplasm of prostate Other fatigue Chronic obstructive pulmonary disease, unspecified COPD type (CMS/HCC)- Primary Need for immunization against influenza Need for prophylactic vaccination and inoculation against influenza Medicare annual wellness visit, subsequent- Primary Left foot pain Pain in soft tissues of limb documented in this encounter [facility]* Diagnosis PVD (peripheral vascular disease) (CMS-HCC) Unspecified peripheral vascular disease Hyperlipidemia, unspecified hyperlipidemia type TIA (transient ischemic attack) Unspecified transient cerebral ischemia BMI less than 19,adult Current smoker documented in this encounter [facility] Work Phone: Evaluation note* Diagnosis Internal derangement of right shoulder- Primary documented in this encounter [facility]* Diagnosis DDD (degenerative disc disease), thoracic Degeneration of thoracic or thoracolumbar intervertebral disc documented in this encounter [facility]* Diagnosis Essential hypertension (CMS/HCC)- Primary Unspecified essential hypertension Thoracic spondylosis MDD (major depressive disorder), recurrent episode, mild (HCC) (CMS/HCC) Primary insomnia Persistent disorder of initiating or maintaining sleep Chronic obstructive pulmonary disease, unspecified COPD type (CMS/HCC) Chemotherapy-induced peripheral neuropathy (CMS/HCC) Tongue cancer (CMS/HCC) Malignant neoplasm of tongue, unspecified site 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) Encounter for long-term (current) use of medications Encounter for long-term (current) use of other medications Prediabetes Other abnormal glucose Dyslipidemia (CMS/HCC) Other and unspecified hyperlipidemia Screening PSA (prostate specific antigen) Special screening for malignant neoplasm of prostate Other fatigue Chronic obstructive pulmonary disease, unspecified COPD type (CMS/HCC)- Primary Need for immunization against influenza Need for prophylactic vaccination and inoculation against influenza Medicare annual wellness visit, subsequent- Primary Left foot pain Pain in soft tissues of limb DDD (degenerative disc disease), thoracic Degeneration of thoracic or thoracolumbar intervertebral disc documented in this encounter [facility]* Diagnosis Essential hypertension (CMS/HCC)- Primary Unspecified essential hypertension Thoracic spondylosis MDD (major depressive disorder), recurrent episode, mild (HCC) (CMS/HCC) Primary insomnia Persistent disorder of initiating or maintaining sleep Chronic obstructive pulmonary disease, unspecified COPD type (CMS/HCC) Chemotherapy-induced peripheral neuropathy (CMS/HCC) Tongue cancer (CMS/HCC) Malignant neoplasm of tongue, unspecified site 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) Encounter for long-term (current) use of medications Encounter for long-term (current) use of other medications Prediabetes Other abnormal glucose Dyslipidemia (CMS/HCC) Other and unspecified hyperlipidemia Screening PSA (prostate specific antigen) Special screening for malignant neoplasm of prostate Other fatigue Chronic obstructive pulmonary disease, unspecified COPD type (CMS/HCC)- Primary Need for immunization against influenza Need for prophylactic vaccination and inoculation against influenza Medicare annual wellness visit, subsequent- Primary Left foot pain Pain in soft tissues of limb S/P arthroscopy of right shoulder- Primary Internal derangement of shoulder, right documented [facility]* Diagnosis Essential hypertension (CMS/HCC)- Primary Unspecified essential hypertension Thoracic spondylosis MDD (major depressive disorder), recurrent episode, mild (HCC) (CMS/HCC) Primary insomnia Persistent disorder of initiating or maintaining sleep Chronic obstructive pulmonary disease, unspecified COPD type (CMS/HCC) Chemotherapy-induced peripheral neuropathy (CMS/HCC) Tongue cancer (CMS/HCC) Malignant neoplasm of tongue, unspecified site 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) Encounter for long-term (current) use of medications Encounter for long-term (current) use of other medications Prediabetes Other abnormal glucose Dyslipidemia (CMS/HCC) Other and unspecified hyperlipidemia Screening PSA (prostate specific antigen) Special screening for malignant neoplasm of prostate Other fatigue Chronic obstructive pulmonary disease, unspecified COPD type (CMS/HCC)- Primary Need for immunization against influenza Need for prophylactic vaccination and inoculation against influenza Medicare annual wellness visit, subsequent- Primary Left foot pain Pain in soft tissues of limb S/P arthroscopy of right shoulder- Primary Internal derangement of shoulder, right Arthralgia, unspecified joint documented in this encounter [facility]* Diagnosis Essential hypertension (CMS/HCC)- Primary Unspecified essential hypertension Thoracic spondylosis MDD (major depressive disorder), recurrent episode, mild (HCC) (CMS/HCC) Primary insomnia Persistent disorder of initiating or maintaining sleep Chronic obstructive pulmonary disease, unspecified COPD type (CMS/HCC) Chemotherapy-induced peripheral neuropathy (CMS/HCC) Tongue cancer (CMS/HCC) Malignant neoplasm of tongue, unspecified site 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) Encounter for long-term (current) use of medications Encounter for long-term (current) use of other medications Prediabetes Other abnormal glucose Dyslipidemia (CMS/HCC) Other and unspecified hyperlipidemia Screening PSA (prostate specific antigen) Special screening for malignant neoplasm of prostate Other fatigue Chronic obstructive pulmonary disease, unspecified COPD type (CMS/HCC)- Primary Need for immunization against influenza Need for prophylactic vaccination and inoculation against influenza Medicare annual wellness visit, subsequent- Primary Left foot pain Pain in soft tissues of limb DDD (degenerative disc disease), thoracic Degeneration of thoracic or thoracolumbar intervertebral disc documented in [facility]* Diagnosis Essential hypertension (CMS/HCC)- Primary Unspecified essential hypertension Thoracic spondylosis MDD (major depressive disorder), recurrent episode, mild (HCC) (CMS/HCC) Primary insomnia Persistent disorder of initiating or maintaining sleep Chronic obstructive pulmonary disease, unspecified COPD type (CMS/HCC) Chemotherapy-induced peripheral neuropathy (CMS/HCC) Tongue cancer (CMS/HCC) Malignant neoplasm of tongue, unspecified site 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) Encounter for long-term (current) use of medications Encounter for long-term (current) use of other medications Prediabetes Other abnormal glucose Dyslipidemia (CMS/HCC) Other and unspecified hyperlipidemia Screening PSA (prostate specific antigen) Special screening for malignant neoplasm of prostate Other fatigue Chronic obstructive pulmonary disease, unspecified COPD type (CMS/HCC)- Primary Need for immunization against influenza Need for prophylactic vaccination and inoculation against influenza Medicare annual wellness visit, subsequent- Primary Left foot pain Pain in soft tissues of limb DDD (degenerative disc disease), thoracic Degeneration of thoracic or thoracolumbar intervertebral disc documented in this encounter [facility]* Diagnosis Essential hypertension (CMS/HCC)- Primary Unspecified essential hypertension Thoracic spondylosis MDD (major depressive disorder), recurrent episode, mild (HCC) (CMS/HCC) Primary insomnia Persistent disorder of initiating or maintaining sleep Chronic obstructive pulmonary disease, unspecified COPD type (CMS/HCC) Chemotherapy-induced peripheral neuropathy (CMS/HCC) Tongue cancer (CMS/HCC) Malignant neoplasm of tongue, unspecified site 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) Encounter for long-term (current) use of medications Encounter for long-term (current) use of other medications Prediabetes Other abnormal glucose Dyslipidemia (CMS/HCC) Other and unspecified hyperlipidemia Screening PSA (prostate specific antigen) Special screening for malignant neoplasm of prostate Other fatigue Chronic obstructive pulmonary disease, unspecified COPD type (CMS/HCC)- Primary Need for immunization against influenza Need for prophylactic vaccination and inoculation against influenza Medicare annual wellness visit, subsequent- Primary Left foot pain Pain in soft tissues of limb Chemotherapy-induced peripheral neuropathy (CMS/HCC)- Primary Unsteady gait Abnormality of gait Tongue cancer (CMS/HCC) Malignant neoplasm of tongue, unspecified site Chronic obstructive pulmonary disease, unspecified COPD type (CMS/HCC) [facility] Diagnosis Oropharnyx cancer (HCC)- Primary Pharyngeal dysphagia Dysphagia, pharyngeal phase Acute post-operative pain COPD (chronic obstructive pulmonary disease) (HCC) Chronic airway obstruction, not elsewhere classified PVD (peripheral vascular disease) (HCC) Peripheral vascular disease, unspecified Essential hypertension, benign Current smoker Tobacco use disorder Dysphagia Dysphagia, unspecified Pre-operative examination- Primary Preoperative examination, unspecified 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 Essential hypertension, benign Tachycardia Tachycardia, unspecified PVD (peripheral vascular disease) (HCC) Peripheral vascular disease, unspecified 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) Transient ischemic attack (TIA), and cerebral infarction without residual deficits Chronic obstructive pulmonary disease, unspecified COPD type (HCC) Current smoker Tobacco use disorder Gastroesophageal reflux disease, unspecified whether esophagitis present Prediabetes Other abnormal glucose Depression, unspecified depression type Intractable migraine without status migrainosus, unspecified migraine type Insomnia, unspecified type Dysphagia, unspecified type Pain- Primary Generalized pain [facility]* Diagnosis Oropharnyx cancer (HCC)- Primary Pharyngeal dysphagia Dysphagia, pharyngeal phase Acute post-operative pain COPD (chronic obstructive pulmonary disease) (HCC) Chronic airway obstruction, not elsewhere classified PVD (peripheral vascular disease) (HCC) Peripheral vascular disease, unspecified Essential hypertension, benign Current smoker Tobacco use disorder Dysphagia Dysphagia, unspecified Pre-operative examination- Primary Preoperative examination, unspecified 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 Essential hypertension, benign Tachycardia Tachycardia, unspecified PVD (peripheral vascular disease) (HCC) Peripheral vascular disease, unspecified 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) Transient ischemic attack (TIA), and cerebral infarction without residual deficits Chronic obstructive pulmonary disease, unspecified COPD type (HCC) Current smoker Tobacco use disorder Gastroesophageal reflux disease, unspecified whether esophagitis present Prediabetes Other abnormal glucose Depression, unspecified depression type Intractable migraine without status migrainosus, unspecified migraine type Insomnia, unspecified type Dysphagia, unspecified type Nontraumatic complete tear of right rotator cuff- Primary Biceps tendinitis of right upper extremity Smoking Tobacco use disorder [facility] this [facility] Diagnosis Oropharnyx cancer (HCC)- Primary Pharyngeal dysphagia Dysphagia, pharyngeal phase Acute post-operative pain COPD (chronic obstructive pulmonary disease) (HCC) Chronic airway obstruction, not elsewhere classified PVD (peripheral vascular disease) (HCC) Peripheral vascular disease, unspecified Essential hypertension, benign Current smoker Tobacco use disorder Dysphagia Dysphagia, unspecified Pre-operative examination- Primary Preoperative examination, unspecified 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 Essential hypertension, benign Tachycardia Tachycardia, unspecified PVD (peripheral vascular disease) (HCC) Peripheral vascular disease, unspecified 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) Encounter for long-term (current) use of medications Encounter for long-term (current) use of other medications Prediabetes Other abnormal glucose Dyslipidemia (CMS/HCC) Other and unspecified hyperlipidemia Screening PSA (prostate specific antigen) Special screening for malignant neoplasm of prostate Other fatigue Chronic obstructive pulmonary disease, unspecified COPD type (CMS/HCC)- Primary Need for immunization against influenza Need for prophylactic vaccination and inoculation against influenza Medicare annual wellness visit, subsequent- Primary Left foot pain Pain in soft tissues of limb Chemotherapy-induced peripheral neuropathy (CMS/HCC)- Primary Unsteady gait Abnormality of gait Tongue cancer (CMS/HCC) Malignant neoplasm of tongue, unspecified site Chronic obstructive pulmonary disease, unspecified COPD type (CMS/HCC) DDD (degenerative disc disease), thoracic Degeneration of thoracic or thoracolumbar intervertebral disc documented in this encounter [facility]* Diagnosis Oropharnyx cancer (HCC)- Primary Pharyngeal dysphagia Dysphagia, pharyngeal phase Acute post-operative pain COPD (chronic obstructive pulmonary disease) (HCC) Chronic airway obstruction, not elsewhere classified PVD (peripheral vascular disease) (HCC) Peripheral vascular disease, unspecified Essential hypertension, benign Current smoker Tobacco use disorder Dysphagia Dysphagia, unspecified Pre-operative examination- Primary Preoperative examination, unspecified 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 Essential hypertension, benign Tachycardia Tachycardia, unspecified PVD (peripheral vascular disease) (HCC) Peripheral vascular disease, unspecified 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) Transient ischemic attack (TIA), and cerebral infarction without residual deficits Chronic obstructive pulmonary disease, unspecified COPD type (HCC) Current smoker Tobacco use disorder Gastroesophageal reflux disease, unspecified whether esophagitis present Prediabetes Other abnormal glucose Depression, unspecified depression type Intractable migraine without status migrainosus, unspecified migraine type Insomnia, unspecified type Dysphagia, unspecified type 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, face, and neck documented in this encounter [facility] for referral (narrative)* Diagnostic Procedure Only (Routine) - Authorized Specialty Diagnoses / Procedures Referred By Morris metzger Referred To Contact XR IMAGING Diagnoses Lower abdominal pain Procedures XR ABDOMEN 2V ROUTINE SUPINE W UPRIGHT/DECUB/CTL RADIOLOGIC EXAM ABDOMEN 2 VIEWS Anthony Weaver PA-C [address] [place] [address] [place] [address] Xr Imaging Referral ID Status Reason Start Date Expiration Date Visits Requested Visits Authorized [id number] Authorized Auto-Generat ed Referral 09/16/2021 10/16/2022 1 1 [facility] for referral (narrative)* Diagnostic Procedure Only (Routine) - Pending Review Specialty Diagnoses / Procedures Referred By Morris metzger Referred To Contact MOLECULAR & FUNCTIONAL IMAGING Diagnoses Oropharnyx cancer (HCC) Procedures NM PET/CT SKULL-THIGH SUBSEQUENT PET IMAGING CT ATTENUATION SKULL BASE MID-THIGH Kathrine Carpenter MD [address] [place] [address] [place] [address] Molecular & Functional Imaging [address] [place] [address] Referral ID Status Reason Start Date Expiration Date Visits Requested Visits Authorized [id number] Pending Review Auto-Generat ed Referral 12/22/2021 12/21/2022 1 1 T [facility] for referral (narrative)* Consultation (Routine) - Authorized Specialty Diagnoses / Procedures Referred By Contac t Referred To Contact Cardiology Diagnoses PVD (peripheral vascular disease) ([facility]/HCC) Procedures Follow Up In Cardiology Carmen Neely MD [address] [place] [address] 2, [address] [address] Carmen Neely MD [address] [place] [address] 2, [address] [place] [address] Referral ID Status Reason Start Date Expiration Date V isits Requested Visits Authorized [id number] Authorized 05/06/2023 05/05/[address] [facility] Work Phone: [facility] ([facility] Diagnostic Procedure Only (Routine) - Pending Review Specialty Diagnoses / Procedures Referred By Contac t Referred To Contact MOLECULAR & FUNCTIONAL IMAGING Diagnoses Cancer of base of tongue (HCC) Malaise and fatigue Procedures NM PET/CT SKULL-THIGH SUBSEQUENT PET IMAGING CT ATTENUATION SKULL BASE MID-THIGH Esdras Cash MD [address] [place] [address] [place] [address] Molecular & Functional Imaging [address] [place] [address] Referral ID Status Reason Start Date Expiration Date Visits Requested Visits Authorized [id number] Pending Review Auto-Generat ed Referral 08/18/2023 09/16/2024 1 1 [facility] for referral (narrative)* Diagnostic Procedure Only (Routine) - Closed Specialty Diagnoses / Procedures Referred By Contac t Referred To Contact MOLECULAR & FUNCTIONAL IMAGING Diagnoses Cancer of base of tongue (HCC) Malaise and fatigue Procedures NM PET/CT SKULL-THIGH SUBSEQUENT PET IMAGING CT ATTENUATION SKULL BASE MID-THIGH Esdras Cash MD [address] [place] [address] [place] [address] Molecular & Functional Imaging [address] [place] [address] Referral ID Status Reason Start Date Expiration Date V isits Requested Visits Authorized [id number] Closed Auto-Generate d Referral 11/20/2023 01/19/2024 1 1 [facility] for referral (narrative)* Diagnostic Procedure Only (Routine) - Closed Specialty Diagnoses / Procedures Referred By Contac t Referred To Contact MOLECULAR & FUNCTIONAL IMAGING Diagnoses Cancer of base of tongue (HCC) Procedures NM PET/CT SKULL-THIGH SUBSEQUENT PET IMAGING CT ATTENUATION SKULL BASE MID-THIGH Esdras Cash MD [address] [place] [address] [place] [address] Molecular & Functional Imaging [address] [place] [address] Referral ID Status Reason Start Date Expiration Date V isits Requested Visits Authorized [id number] Closed Auto-Generate d Referral OON/Self Pay Override 02/11/2023 03/13/2023 1 1 T [facility] for referral (narrative)* Diagnostic Procedure Only (Routine) - Closed Specialty Diagnoses / Procedures Referred By Contac t Referred To Contact MOLECULAR & FUNCTIONAL IMAGING Diagnoses Oropharnyx cancer (HCC) Procedures NM PET/CT SKULL-THIGH SUBSEQUENT PET IMAGING CT ATTENUATION SKULL BASE MID-THIGH Kathrine Carpenter MD [address] [place] [address] [place] [address] Molecular & Functional Imaging [address] [place] [address] Referral ID Status Reason Start Date Expiration Date V isits Requested Visits Authorized [id number] Closed Auto-Generate d Referral 12/23/2021 01/22/2022 1 1 [facility] for referral (narrative)* Diagnostic Procedure Only (Routine) - Closed Specialty Diagnoses / Procedures Referred By Contac t Referred To Contact MOLECULAR & FUNCTIONAL IMAGING Diagnoses Malignant neoplasm of head, face and neck (HCC) Procedures NM PET/CT SKULL-THIGH SUBSEQUENT TUMOR IMAGING PET W/CONC CT SKULL-THIGH Kathrine Carpenter MD [address] [place] [address] [place] [address] Molecular & Functional Imaging [address] [place] [address] Referral ID Status Reason Start Date Expiration Date Visits Re quested Visits Authorized Closed 04/05/2021 05/05/2021 1 1 [facility] for referral (narrative)* Diagnostic Procedure Only (Routine) - Authorized Specialty Diagnoses / Procedures Referred By Contac t Referred To Contact XR IMAGING Diagnoses Pain Procedures XR SHOULDER GENERAL 3V OR MORE AP/TRUE AP/OTHER RIGHT RADEX SHOULDER COMPLETE MINIMUM 2 VIEWS Hebert Miguel MD [address] [place] [address] Xr Imaging [place] [address] Referral ID Status Reason Start Date Expiration Date Visits Requested Visits Authorized [id number] Authorized Auto-Generat ed Referral 06/07/2024 07/07/2025 1 1 [facility] for visit Narrative* Diagnostic Procedure Only (Routine) - Closed Specialty Diagnoses / Procedures Referred By Contac t Referred To Contact Radiation Oncology / RADIATION ONCOLOGY Diagnoses Malignant neoplasm of base of tongue SIM/KAI/Neck - IV Contrast Procedures SIMULATION KELSEY IMRT 30 fractions Kathrine Carpenter MD [address] [place] [address] [place] [address] Kathrine Carpenter MD [address] [place] [address] [place] [address] Referral ID Status Reason Start Date Expiration Date Visits Re quested Visits Authorized [id number] Closed 08/01/2021 10/30/[address] [facility] Summary Purpose Family History No Family History Records FoundUnknown Family Member Name Dates Details Family history of diabetes m ellitus: Mother, Brother(V18.0, Z83.3) Status:Active Family history of malignant neoplasm of breast: Mother(V16.3, Z80.3) Status:Active Unknown Family Member Name Dates Details Family history of malignant neoplasm of breast: Mother(V16.3, Z80.3) Status:Active Family history of diabetes m ellitus: Mother, Brother(V18.0, Z83.3) Status:Active Unknown Family Member Name Dates Details Family history of diabetes m ellitus: Mother, Brother(V18.0, Z83.3) Status:Active Family history of malignant neoplasm of breast: Mother(V16.3, Z80.3) Status:Active Unknown Family Member Name Dates Details Family history of diabetes m ellitus: Mother, Brother(V18.0, Z83.3) Status:Active Family history of malignant neoplasm of breast: Mother(V16.3, Z80.3) Status:Active Unknown Family Member Name Dates Details Family history of diabetes m ellitus: Mother, Brother(V18.0, Z83.3) Status:Active Family history of malignant neoplasm of breast: Mother(V16.3, Z80.3) Status:Active Unknown Family Member Name Dates Details Family history of diabetes m ellitus: Mother, Brother(V18.0, Z83.3) Status:Active Family history of malignant neoplasm of breast: Mother(V16.3, Z80.3) Status:Active Relationship Condition Age at Onset Recorded Date/T valentina brother Diabetes mellitus Unknown Not Specified Malignant neoplasm of breast Unknown Advance Directives No Advanced Directives Records FoundDocuments on File Type Date Recorded Patient Silicator Expl anation Advance Directive(s) 06/17/2021 10:43 AM Documents on File Type Date Recorded Patient Silicator Expl anation Advance Directive(s) 06/17/2021 10:43 AM Advance Directive Response Recorded Date/ Time Advance Directives No August 07 12:13pm Reason for Referral Specialty Diagnoses / Procedures Referred By Contac t Referred To Contact [facility] Diagnoses Current smoker Physical deconditioning Procedures PT REHAB FOLLOW UP ORDER THERAPEUTIC EXERCISES RE, EA 15 MIN. [address] [facility] [address] [place] [address] [facility] [place] [address] [place] [address] Referral ID Status Reason Start Date Expiration Date Visits Requested Visits Authorized [id number] Pending Review PCP Requested Referral Auto-Generate d Referral 08/09/2021 11/07/2021 1 1 Specialty Diagnoses / Procedures Referred By Contac t Referred To Contact CT IMAGING Diagnoses Oropharnyx cancer (HCC) Procedures CT CHEST W IVCON DIAGNOSTIC COMPUTED TOMOGRAPHY THORAX W/CONTRAST Kathrine Carpenter MD [address] [place] [address] Ct Imaging Referral ID Status Reason Start Date Expiration Date Visits Requested Visits Authorized [id number] Pending Review Auto-Generat ed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 the Federal Confidentiality of Alcohol and Drug Abuse Patient Records regulations: The Federal rules restrict any use of the information to criminally investigate or prosecute any alcohol or drug abuse patient.[facility] HospitalIn the event this information is protected by the Federal Confidentiality of Alcohol and Drug Abuse Patient Records regulations: The Federal rules restrict any use of the information to criminally investigate or prosecute any alcohol or drug abuse patient.[facility] HospitalIn the event this information is protected by the Federal Confidentiality of Alcohol and Drug Abuse Patient Records regulations: The Federal rules restrict any use of the information to criminally investigate or prosecute any alcohol or drug abuse patient.[facility] HospitalIn the event this information is protected by the Federal Confidentiality of Alcohol and Drug Abuse Patient Records regulations: The Federal rules restrict any use of the information to criminally investigate or prosecute any alcohol or drug abuse patient.[facility] HospitalIn the event this information is protected by the Federal Confidentiality of Alcohol and Drug Abuse Patient Records regulations: The Federal rules restrict any use of the information to criminally investigate or prosecute any alcohol or drug abuse patient.[facility] HospitalIn the event this information is protected by the Federal Confidentiality of Alcohol and Drug Abuse Patient Records regulations: The Federal rules restrict any use of the information to criminally investigate or prosecute any alcohol or drug abuse patient.[facility] HospitalIn the event this information is protected by the Federal Confidentiality of Alcohol and Drug Abuse Patient Records regulations: The Federal rules restrict any use of the information to criminally investigate or prosecute any alcohol or drug abuse patient.[facility] HospitalIn the event this information is protected by the Federal Confidentiality of Alcohol and Drug Abuse Patient Records regulations: The Federal rules restrict any use of the information to criminally investigate or prosecute any alcohol or drug abuse patient.[facility] HospitalIn the event this information is protected by the Federal Confidentiality of Alcohol and Drug Abuse Patient Records regulations: The Federal rules restrict any use of the information to criminally investigate or prosecute any alcohol or drug abuse patient.[facility] HospitalIn the event this information is protected by the Federal Confidentiality of Alcohol and Drug Abuse Patient Records regulations: The Federal rules restrict any use of the information to criminally investigate or prosecute any alcohol or drug abuse patient.[facility] HospitalIn the event this information is protected by the Federal Confidentiality of Alcohol and Drug Abuse Patient Records regulations: The Federal rules restrict any use of the information to criminally investigate or prosecute any alcohol or drug abuse patient.[facility] HospitalIn the event this information is protected by the Federal Confidentiality of Alcohol and Drug Abuse Patient Records regulations: The Federal rules restrict any use of the information to criminally investigate or prosecute any alcohol or drug abuse patient.[facility] HospitalIn the event this information is protected by the Federal Confidentiality of Alcohol and Drug Abuse Patient Records regulations: The Federal rules restrict any use of the information to criminally investigate or prosecute any alcohol or drug abuse patient.[facility] HospitalIn the event this information is protected by the Federal Confidentiality of Alcohol and Drug Abuse Patient Records regulations: The Federal rules restrict any use of the information to criminally investigate or prosecute any alcohol or drug abuse patient.[facility] Hospital[facility] the event this information is protected by the Federal Confidentiality of Alcohol and Drug Abuse Patient Records regulations: The Federal rules restrict any use of the information to criminally investigate or prosecute any alcohol or drug abuse patient.[facility] HospitalIn the event this information is protected by the Federal Confidentiality of Alcohol and Drug Abuse Patient Records regulations: The Federal rules restrict any use of the information to criminally investigate or prosecute any alcohol or drug abuse patient.[facility] Hospital[facility] the event this information is protected by the Federal Confidentiality of Alcohol and Drug Abuse Patient Records regulations: The Federal rules restrict any use of the information to criminally investigate or prosecute any alcohol or drug abuse patient.[facility] HospitalIn the event this information is protected by the Federal Confidentiality of Alcohol and Drug Abuse Patient Records regulations: The Federal rules restrict any use of the information to criminally investigate or prosecute any alcohol or drug abuse patient.[facility] Hospital[facility] the event this information is protected by the Federal Confidentiality of Alcohol and Drug Abuse Patient Records regulations: The Federal rules restrict any use of the information to criminally investigate or prosecute any alcohol or drug abuse patient.[facility] HospitalIn the event this information is protected by the Federal Confidentiality of Alcohol and Drug Abuse Patient Records regulations: The Federal rules restrict any use of the information to criminally investigate or prosecute any alcohol or drug abuse patient.[facility] HospitalIn the event this information is protected by the Federal Confidentiality of Alcohol and Drug Abuse Patient Records regulations: The Federal rules restrict any use of the information to criminally investigate or prosecute any alcohol or drug abuse patient.[facility] HospitalIn the event this information is protected by the Federal Confidentiality of Alcohol and Drug Abuse Patient Records regulations: The Federal rules restrict any use of the information to criminally investigate or prosecute any alcohol or drug abuse patient.[facility] HospitalIn the event this information is protected by the Federal Confidentiality of Alcohol and Drug Abuse Patient Records regulations: The Federal rules restrict any use of the information to criminally investigate or prosecute any alcohol or drug abuse patient.[facility] HospitalIn the event this information is protected by the Federal Confidentiality of Alcohol and Drug Abuse Patient Records regulations: The Federal rules restrict any use of the information to criminally investigate or prosecute any alcohol or drug abuse patient.[facility] Reason for Visit (unrecogniz ed section and content) Reason Onset Date Comments Refill Request 07/30/2021 Reason Comments Nutrition Assessment Reason Comments Head and Neck Cancer Reason Comments Care Coordination Antiemetics Reason Comments Consult Reason Comments Chemotherapy Treatment Carboplatin Reason Comments PT Eval Patient Education Specialty Diagnoses / Procedures Referred By Contac Referred To Contact [facility] Diagnoses Current smoker Procedures CONSULT TO PHYSICAL THERAPY PHYSICAL THERAPY EVALUATION HIGH COMPLEX 45 MINS Darien Olivarez MD [id number] [facility] [place] [address] Referral ID Status Reason Start Date Expiration Date V isits Requested Visits Authorized [id number] Closed Auto-Generate d Referral 05/04/2021 05/03/2022 1 1 Reason Comments Care Coordination Education Material Reason Comments Radiotherapy On-treatment Visit Specialty Diagnoses / Procedures Referred By Contac Referred To Contact Diagnoses Cancer of base of tongue (HCC) Procedures CARBOPLATIN INJECTION Esdras Cash MD [address] [place] [address] [place] [address] Yvan Treat Kelsey [facility] [place] [place] [address] Referral ID Status Reason Start Date Expiration Date V isits Requested Visits Authorized [id number] Pending Review 08/05/2021 09/30/2021 8 8 Reason Comments Care Coordination C1D1 Post Treatment Call Reason Comments tongue cancer Reason Comments Nutrition Counseling Referral ID Status Reason Start Date Expiration Date V isits Requested Visits Authorized [id number] Authorized 08/05/2021 09/30/2021 8 8 Reason Comments oropharnyx cancer Reason Comments Cancer of base of tongue OTV Reason Comments Patient Update neuropathy Reason Comments Social Work Services Gas card program Referral ID Status Reason Start Date Expiration Date V isits Requested Visits Authorized [id number] Authorized 08/05/2021 10/31/2021 8 8 Reason Comments Head and Neck Cancer urgent Reason Comments Care Coordination Xray Reason Comments Care Coordination Pt Update Reason Comments Nausea Radiation Cancelled Reason Comments Care Coordination Hospital Admission Reason Comments Care Coordination Discharge Follow Up Reason Comments Head and Neck Cancer Hospital Follow Up Reason Comments Oropharynx cancer 1 week follow up Reason Comments Nutrition Telephone Reason Comments tongue cancer' follow up Reason Onset Date Comments Refill Request 11/26/2021 Reason Comments tongue cancer Follow up Reason Comments Head and Neck Cancer Reason Comments Head and Neck Cancer Follow up Reason Comments Orders Reason Onset Date Comments Refill Request 11/13/2022 Reason Comments Refill Request Reason Comments Follow-up 6m Reason Comments Head and Neck Cancer Follow up Reason Comments Radiology NM Specialty Diagnoses / Procedures Referred By Contac t Referred To Contact MOLECULAR & FUNCTIONAL IMAGING Diagnoses Cancer of base of tongue (HCC) Malaise and fatigue Procedures NM PET/CT SKULL-THIGH SUBSEQUENT PET IMAGING CT ATTENUATION SKULL BASE MID-THIGH Esdras Cash MD [address] [place] [address] [place] [address] Molecular & Functional Imaging [address] [place] [address] Referral ID Status Reason Start Date Expiration Date V isits Requested Visits Authorized [id number] Closed Auto-Generate d Referral 11/20/2023 01/19/2024 1 1 Specialty Diagnoses / Procedures Referred By Contac t Referred To Contact MOLECULAR & FUNCTIONAL IMAGING Diagnoses Cancer of base of tongue (HCC) Procedures NM PET/CT SKULL-THIGH SUBSEQUENT PET IMAGING CT ATTENUATION SKULL BASE MID-THIGH Esdras Cash MD [address] [place] [address] [place] [address] Molecular & Functional Imaging [address] [place] [address] Referral ID Status Reason Start Date Expiration Date V isits Requested Visits Authorized [id number] Closed Auto-Generate d Referral OON/Self Pay Override 02/11/2023 03/13/2023 [address] Specialty Diagnoses / Procedures Referred By Contac t Referred To Contact CT IMAGING Diagnoses Oropharnyx cancer (HCC) Procedures CT CHEST W IVCON DIAGNOSTIC COMPUTED TOMOGRAPHY THORAX W/CONTRAST Kathrine Carpenter MD [address] [place] [address] [place] [address] [facility] [address] [place] [address] Referral ID Status Reason Start Date Expiration Date V isits Requested Visits Authorized [id number] Closed Auto-Generate d Referral 07/16/2022 08/15/2023 1 1 Referral ID Status Reason Start Date Expiration Date V isits Requested Visits Authorized [id number] Closed Auto-Generate d Referral 04/14/2022 05/14/2022 [address] Specialty Diagnoses / Procedures Referred By Contac t Referred To Contact MOLECULAR & FUNCTIONAL IMAGING Diagnoses Oropharnyx cancer (HCC) Procedures NM PET/CT SKULL-THIGH SUBSEQUENT PET IMAGING CT ATTENUATION SKULL BASE MID-THIGH Kathrine Carpenter MD [address] [place] [address] [place] [address] Molecular & Functional Imaging [address] [place] [address] Referral ID Status Reason Start Date Expiration Date V isits Requested Visits Authorized [id number] Closed Auto-Generate d Referral 12/23/2021 01/22/2022 1 1 Specialty Diagnoses / Procedures Referred By Contac t Referred To Contact MOLECULAR & FUNCTIONAL IMAGING Diagnoses Malignant neoplasm of head, face and neck (HCC) Procedures NM PET/CT SKULL-THIGH SUBSEQUENT TUMOR IMAGING PET W/CONC CT SKULL-THIGH Kathrine Carpenter MD [address] [place] [address] [place] [address] Molecular & Functional Imaging [address] [place] [address] Referral ID Status Reason Start Date Expiration Date Visits Re quested Visits Authorized [id number] Closed 04/05/2021 05/05/2021 1 1 Reason Comments Pain Reason Onset Date Comments Med Refill 02/22/2024 Reason Comments Pain Reason Comments Follow-up Er f/u Reason Onset Date Comments Med Refill 03/01/2024 Reason Comments Med Refill Reason Onset Date Comments Refill Request 04/04/2024 Reason Comments Medicare Annual Wellness Visit Pina t Wellness Reason Comments Follow-up 6 month Specialty Diagnoses / Procedures Referred By Contac t Referred To Contact Cardiology Diagnoses PVD (peripheral vascular disease) ([facility]) Procedures Follow Up In Cardiology Carmen Neely MD [address] [facility] [address], [address] [address] Carmen Neely MD [address] [facility] [address], [facility] [address] [place] [address] Referral ID Status Reason Start Date Expiration Date V isits Requested Visits Authorized [id number] Authorized 05/06/2023 05/05/2024 1 1 Reason Onset Date Comments Med Refill 12/31/2023 Reason Onset Date Comments Med Refill 01/05/2024 Reason Comments Follow-up Reason Onset Date Comments Order 05/12/2024 Reason Onset Date Comments Med Refill 05/26/2024 Reason Comments Follow-up Needs order for loreto weems walker Reason Comments Pain New Patient Numbness Swelling Reason Comments Radio Gen A21 Specialty Diagnoses / Procedures Referred By Morris t Referred To Contact XR IMAGING Diagnoses Pain Procedures XR SHOULDER GENERAL 3V OR MORE AP/TRUE AP/OTHER RIGHT RADEX SHOULDER COMPLETE MINIMUM 2 VIEWS Hebert Miguel MD [address] [place] [address] Phone: tel: fax: [place] [address] Referral ID Status Reason Start Date Expiration Date V isits Requested Visits Authorized [id number] Closed Auto-Generate d Referral 06/07/2024 07/07/2025 1 1 Reason Onset Date Comments Med Refill 06/24/2024 Care Teams (unrecognized sec tion and content) C Web Developer Relationship Specialty Start Date End Date Gildardo Lacy [address] [place] [address] PCP - General Family Practice 07/16/20 Esdras Cash MD [address] [place] [address] Physician Hematology/Oncology 08/07/20 Nathaly Biggs, SOFTWARE TECHNICAL LEAD.[employer] [address] [place] [address] Nurse Practitioner Hematology/Oncology 08/07/20 Cynthia Cutler, RN [address] [place] [place] [address] Specialty Certified Appliance Service Technician Hematology/Oncology 08/07/20 Kathrine Carpenter MD [address] [place] [address] Physician Radiation Oncology 08/07/20 C Web Developer Relationship Specialty Start Date End Date Gildardo Lacy [address] [place] [address] PCP - General Family Practice 07/16/20 Esdras Cash MD [address] [place] [address] Physician Hematology/Oncology 08/07/20 Nathaly Biggs, SOFTWARE TECHNICAL LEAD.[employer] [address] [place] [place] [address] Nurse Practitioner Hematology/Oncology 08/07/20 Cynthia Cutler, SCOTT [address] [place] [address] Specialty Certified Appliance Service Technician Hematology/Oncology 08/07/20 Kathrine Carpenter MD [address] [place] [place] [address] Physician Radiation Oncology 08/07/20 C Web Developer Relationship Specialty Start Date End Date Gildardo Lacy [address] [place] [address] PCP - General Family Practice 07/16/20 Esdras Cash MD [address] [place], [place] [address] Physician Hematology/Oncology 08/07/20 Nathaly Biggs, SOFTWARE TECHNICAL LEAD.[facility] [address] [place], [place] [address] Nurse Practitioner Hematology/Oncology 08/07/20 Cynthia Cutler, RN [address] [place] [place] [address] Specialty Certified Appliance Service Technician Hematology/Oncology 08/07/20 Kathrine Carpenter MD [address] [place] [place] [address] Physician Radiation Oncology 08/07/20 C Web Developer Relationship Specialty Start Date End Date [place] [address] PCP - General Family Practice 07/16/20 Esdras Cash MD [address] [place] [address] Physician Hematology/Oncology 08/07/20 Nathaly Biggs, SOFTWARE TECHNICAL LEAD.[facility] [address] [place], [place] [address] Nurse Practitioner Hematology/Oncology 08/07/20 Cynthia Cutler, SCOTT [address] [place] [place] [address] Specialty Certified Appliance Service Technician Hematology/Oncology 08/07/20 Kathrine Carpenter MD [address] [place] [place] [address] Physician Radiation Oncology 08/07/20 C Web Developer Relationship Specialty Start Date End Date Gildardo Lacy Carrie [address] [place] [address] PCP - General Family Practice 07/16/20 Esdras Cash MD [address] [place] [address] Physician Hematology/Oncology 08/07/20 Nathaly Biggs, SOFTWARE TECHNICAL LEAD.[employer] [address] [place] [place] [address] Nurse Practitioner Hematology/Oncology 08/07/20 Cynthia Cutler, SCOTT [address] [place] [address] Specialty Certified Appliance Service Technician Hematology/Oncology 08/07/20 Kathrine Carpenter MD [address] [place] [place] [address] Physician Radiation Oncology 08/07/20 C Web Developer Relationship Specialty Start Date End Date Reggie Gildardo Butler [address] [place] [address] PCP - General Family Practice 07/16/20 Esdras Cash MD [address] [place] [address] Physician Hematology/Oncology 08/07/20 Nathaly Biggs, SOFTWARE TECHNICAL LEAD.[employer] [address] [place] [place] [address] Nurse Practitioner Hematology/Oncology 08/07/20 Cynthia Cutler, RN [address] [place] [address] Specialty Certified Appliance Service Technician Hematology/Oncology 08/07/20 Kathrine Carpenter MD [address] [place] [address] Physician Radiation Oncology 08/07/20 C Web Developer Relationship Specialty Start Date End Date Gildardo Lacy [address] [place] [address] PCP - General Family Practice 07/16/20 Esdras Cash MD [address] [facility] [place] [address] Physician Hematology/Oncology 08/07/20 Nathaly Biggs, SOFTWARE TECHNICAL LEAD.[employer] [address] [place] [address] Nurse Practitioner Hematology/Oncology 08/07/20 Cynthia Cutler, SCOTT [address] [facility] [place] [address] Specialty Certified Appliance Service Technician Hematology/Oncology 08/07/20 Kathrine Carpenter MD [address] [place] [address] Physician Radiation Oncology 08/07/20 C Web Developer Relationship Specialty Start Date End Date Gildardo Lacy [address] [place] [address] PCP - General Family Practice 07/16/20 Esdras Cash MD [address] [facility] [place] [address] Physician Hematology/Oncology 08/07/20 Nathaly Biggs, SOFTWARE TECHNICAL LEAD.[employer] [address] [place] [place] [address] Nurse Practitioner Hematology/Oncology 08/07/20 Cynthia Cutler, SCOTT [address] [place] [place] [address] Specialty Certified Appliance Service Technician Hematology/Oncology 08/07/20 Kathrine Carpenter MD [address] [facility] [place] [address] Physician Radiation Oncology 08/07/20 C Web Developer Relationship Specialty Start Date End Date KalpanaGildardo stone [address] [place] [address] PCP - General Family Practice 07/16/20 Esdras Cash MD [address] [facility] [place] [address] Physician Hematology/Oncology 08/07/20 Nathaly Biggs, SOFTWARE TECHNICAL LEAD.[employer] [address] [place] [place] [address] Nurse Practitioner Hematology/Oncology 08/07/20 Cynthia Cutler, SCOTT [address] [place] [address] Specialty Certified Appliance Service Technician Hematology/Oncology 08/07/20 Kathrine Carpenter MD [address] [place] [address] Physician Radiation Oncology 08/07/20 C Web Developer Relationship Specialty Start Date End Date Gildardo Lacy [address] [place] [address] PCP - General Family Practice 07/16/20 Esdras Cash MD [address] [place] [address] Physician Hematology/Oncology 08/07/20 Nathaly Biggs, SOFTWARE TECHNICAL LEAD.[employer] [address] [place] [place] [address] Nurse Practitioner Hematology/Oncology 08/07/20 Cynthia Cutler, SCOTT [address] [place] [address] Specialty Certified Appliance Service Technician Hematology/Oncology 08/07/20 Kathrine Carpenter MD [address] [place] [place] [address] Physician Radiation Oncology 08/07/20 C Web Developer Relationship Specialty Start Date End Date Gildardo Lacy [address] [facility] [place] [address] PCP - General Family Practice 07/16/20 Esdras Cash MD [address] [place] [place] [address] Physician Hematology/Oncology 08/07/20 Nathaly Biggs, SOFTWARE TECHNICAL LEAD.[employer] [address] [place] [address] Nurse Practitioner Hematology/Oncology 08/07/20 Cynthia Cutler, SCOTT [address] [place] [address] Specialty Certified Appliance Service Technician Hematology/Oncology 08/07/20 Kathrine Carpenter MD [address] [place] [place] [address] Physician Radiation Oncology 08/07/20 C Web Developer Relationship Specialty Start Date End Date Gildardo Lacy [address] [place] [address] PCP - General Family Practice 07/16/20 Esdras Cash MD [address] [place] [place] [address] Physician Hematology/Oncology 08/07/20 Nathaly Biggs, SOFTWARE TECHNICAL LEAD.[employer] [address] [place] [place] [address] Nurse Practitioner Hematology/Oncology 08/07/20 Cynthia Cutler, SCOTT [address] [place] [address] Specialty Certified Appliance Service Technician Hematology/Oncology 08/07/20 Kathrine Carpenter MD [address] [place] [address] Physician Radiation Oncology 08/07/20 C Web Developer Relationship Specialty Start Date End Date Gildrado Lacy [address] [facility] [place] [address] PCP - General Family Practice 07/16/20 Esdras Cash MD [address] [place] [address] Physician Hematology/Oncology 08/07/20 Nathaly Biggs, SOFTWARE TECHNICAL LEAD.[employer] [address] [place] [address] Nurse Practitioner Hematology/Oncology 08/07/20 Cynthia Cutler, SCOTT [address] [place] [address] Specialty Certified Appliance Service Technician Hematology/Oncology 08/07/20 Kathrine Carpenter MD [address] [place] [address] Physician Radiation Oncology 08/07/20 C Web Developer Relationship Specialty Start Date End Date Gildardo Lacy [address] [place] [address] PCP - General Family Practice 07/16/20 Esdras Cash MD [address] [place] [address] Physician Hematology/Oncology 08/07/20 Nathaly Biggs, SOFTWARE TECHNICAL LEAD.[employer] [address] [place] [address] Nurse Practitioner Hematology/Oncology 08/07/20 Cynthia Cutler, SCOTT [address] [place] [address] Specialty Certified Appliance Service Technician Hematology/Oncology 08/07/20 Kathrine Carpenter MD [address] [place] [place] [address] Physician Radiation Oncology 08/07/20 C Web Developer Relationship Specialty Start Date End Date Gildardo Lacy [address] [place] [address] PCP - General Family Practice 07/16/20 Esdras Cash MD [address] [place] [address] Physician Hematology/Oncology 08/07/20 Nathaly Biggs, SOFTWARE TECHNICAL LEAD.[facility] [address] [place] [address] Nurse Practitioner Hematology/Oncology 08/07/20 Cynthia Cutler, SCOTT [address] [place] [place] [address] Specialty Certified Appliance Service Technician Hematology/Oncology 08/07/20 Kathrine Carpenter MD [address] [place] [place] [address] Physician Radiation Oncology 08/07/20 C Web Developer Relationship Specialty Start Date End Date Gildardo Lacy [address] [place] [address] PCP - General Family Practice 07/16/20 Esdras Cash MD [address] [place] [address] Physician Hematology/Oncology 08/07/20 Nathaly Biggs, SOFTWARE TECHNICAL LEAD.[employer] [address] [place] [place] [address] Nurse Practitioner Hematology/Oncology 08/07/20 Cynthia Cutler, RN [address] [place] [address] Specialty Certified Appliance Service Technician Hematology/Oncology 08/07/20 Kathrine Carpenter MD [address] [place] [address] Physician Radiation Oncology 08/07/20 C Web Developer Relationship Specialty Start Date End Date Gildardo Lacy [address] [place] [address] PCP - General Family Practice 07/16/20 Esdras Cash MD [address] [place] [address] Physician Hematology/Oncology 08/07/20 Nathaly Biggs, SOFTWARE TECHNICAL LEAD.[employer] [address] [place] [address] Nurse Practitioner Hematology/Oncology 08/07/20 Cynthia Cutler, RN [address] [place] [address] Specialty Certified Appliance Service Technician Hematology/Oncology 08/07/20 Kathrine Carpenter MD [address] [place] [address] Physician Radiation Oncology 08/07/20 C Web Developer Relationship Specialty Start Date End Date Gildardo Lacy [address] [place] [address] PCP - General Family Practice 07/16/20 Esdras Cash MD [address] [place] [address] Physician Hematology/Oncology 08/07/20 Nathaly Biggs, SOFTWARE TECHNICAL LEAD.[facility] [address] [place] [place] [address] Nurse Practitioner Hematology/Oncology 08/07/20 Cynthia Cutler, SCOTT [address] [place] [place] [address] Specialty Certified Appliance Service Technician Hematology/Oncology 08/07/20 Kathrine Carpenter MD [address] [place] [address] Physician Radiation Oncology 08/07/20 C Web Developer Relationship Specialty Start Date End Date Gildardo Lacy [address] [address] PCP - General Family Practice 07/16/20 Esdras Cash MD [address] [place] [address] Physician Hematology/Oncology 08/07/20 Nathaly Biggs, SOFTWARE TECHNICAL LEAD.[facility] [address] [place] [address] Nurse Practitioner Hematology/Oncology 08/07/20 Cynthia Cutler, SCOTT [address] [place] [place] [address] Specialty Certified Appliance Service Technician Hematology/Oncology 08/07/20 Kathrine Carpenter MD [address] [place] [address] Physician Radiation Oncology 08/07/20 C Web Developer Relationship Specialty Start Date End Date Gildardo Lacy [address] [place] [address] PCP - General Family Practice 07/16/20 Esdras Cash MD [address] [place] [address] Physician Hematology/Oncology 08/07/20 Nathaly Biggs, SOFTWARE TECHNICAL LEAD.[facility] [address] [place] [address] Nurse Practitioner Hematology/Oncology 08/07/20 Cynthia Cutler, SCOTT [address] [place] [place] [address] Specialty Certified Appliance Service Technician Hematology/Oncology 08/07/20 Kathrine Carpenter MD [address] [place] [address] Physician Radiation Oncology 08/07/20 C Web Developer Relationship Specialty Start Date End Date Gildardo Lacy [address] [place] [address] PCP - General Family Practice 07/16/20 Esdras Cash MD [address] [place] [address] Physician Hematology/Oncology 08/07/20 Nathaly Biggs, SOFTWARE TECHNICAL LEAD.[employer] [address] [place] [address] Nurse Practitioner Hematology/Oncology 08/07/20 Cynthia Cutler, SCOTT [address] [place] [address] Specialty Certified Appliance Service Technician Hematology/Oncology 08/07/20 Kathrine Carpenter MD [address] [place] [place] [address] Physician Radiation Oncology 08/07/20 C Web Developer Relationship Specialty Start Date End Date Gildardo Lacy [address] [place] [address] PCP - General Family Practice 07/16/20 Esdras Cash MD [address] [place], [place] [address] Physician Hematology/Oncology 08/07/20 Nathaly Biggs, SOFTWARE TECHNICAL LEAD.[facility] [address] [place] [address] Nurse Practitioner Hematology/Oncology 08/07/20 Cynthia Cutler, SCOTT [address] [place] [address] Specialty Certified Appliance Service Technician Hematology/Oncology 08/07/20 Kathrine Carpenter MD [address] [place] [address] Physician Radiation Oncology 08/07/20 C Web Developer Relationship Specialty Start Date End Date [place] [address] PCP - General Family Practice 07/16/20 Esdras Cash MD [address] [place], [place] [address] Physician Hematology/Oncology 08/07/20 Nathaly Biggs, SOFTWARE TECHNICAL LEAD.[facility] [address] [place] [address] Nurse Practitioner Hematology/Oncology 08/07/20 Cynthia Cutler, SCOTT [address] [place] [address] Specialty Certified Appliance Service Technician Hematology/Oncology 08/07/20 Kathrine Carpenter MD [address] [place] [address] Physician Radiation Oncology 08/07/20 C Web Developer Relationship Specialty Start Date End Date Reggie Gildardo Butler [address] [place] [address] PCP - General Family Practice 07/16/20 Esdras Cash MD [address] [place] [address] Physician Hematology/Oncology 08/07/20 Nathaly Biggs, SOFTWARE TECHNICAL LEAD.[employer] [address] [place] [place] [address] Nurse Practitioner Hematology/Oncology 08/07/20 Cynthia Cutler, RN [address] [place] [address] Specialty Certified Appliance Service Technician Hematology/Oncology 08/07/20 Kathrine Carpenter MD [address] [place] [address] Physician Radiation Oncology 08/07/20 Amira Powell LSW Appraisal Specialist 09/16/21 C Web Developer Relationship Specialty Start Date End Date ReggieGildardo [address] [place] [address] PCP - General Family Practice 07/16/20 Esdras Cash MD [address] [place] [place] [address] Physician Hematology/Oncology 08/07/20 Nathaly Biggs, SOFTWARE TECHNICAL LEAD.[employer] [address] [place] [place] [address] Nurse Practitioner Hematology/Oncology 08/07/20 Cynthia Cutler, RN [address] [place] [address] Specialty Certified Appliance Service Technician Hematology/Oncology 08/07/20 Kathrine Carpenter MD [address] [place] [place] [address] Physician Radiation Oncology 08/07/20 Amira Powell LSW Appraisal Specialist 09/16/21 C Web Developer Relationship Specialty Start Date End Date ShiplaGildardo villarreal [address] [place] [address] PCP - General Family Practice 07/16/20 Esdras Cash MD [address] [place] [place] [address] Physician Hematology/Oncology 08/07/20 Nathaly Biggs, SOFTWARE TECHNICAL LEAD.[employer] [address] [place] [place] [address] Nurse Practitioner Hematology/Oncology 08/07/20 Cynthia Cutler, SCOTT [address] [place] [place] [address] Specialty Certified Appliance Service Technician Hematology/Oncology 08/07/20 Kathrine Carpenter MD [address] [place] [place] [address] Physician Radiation Oncology 08/07/20 Amira Powell LSW Appraisal Specialist 09/16/21 C Web Developer Relationship Specialty Start Date End Date Gildardo Lacy [address] [place] [address] PCP - General Family Practice 07/16/20 Esdras Cash MD [address] [place] [address] Physician Hematology/Oncology 08/07/20 Nathaly Biggs, SOFTWARE TECHNICAL LEAD.[employer] [address] [place] [address] Nurse Practitioner Hematology/Oncology 08/07/20 Cynthia Cutler, SCOTT [address] [place] [address] Specialty Certified Appliance Service Technician Hematology/Oncology 08/07/20 Kathrine Carpenter MD [address] [place] [address] Physician Radiation Oncology 08/07/20 Amira Powell LSW Appraisal Specialist 09/16/21 C Web Developer Relationship Specialty Start Date End Date Gildardo Lacy [address] [place] [address] PCP - General Family Practice 07/16/20 Esdras Cash MD [address] [place] [address] Physician Hematology/Oncology 08/07/20 Nathaly Biggs, SOFTWARE TECHNICAL LEAD.[employer] [address] [place] [address] Nurse Practitioner Hematology/Oncology 08/07/20 Cynthia Cutler RN [address] [place] [address] Specialty Certified Appliance Service Technician Hematology/Oncology 08/07/20 Kathrine Carpenter MD [address] [place] [place] [address] Physician Radiation Oncology 08/07/20 Amira Powell LSW Appraisal Specialist 09/16/21 C Web Developer Relationship Specialty Start Date End Date Gildardo Lacy [address] [place] [address] PCP - General Family Practice 07/16/20 Esdras Cash MD [address] [place] [place] [address] Physician Hematology/Oncology 08/07/20 Nathaly Biggs, SOFTWARE TECHNICAL LEAD.[employer] [address] [place] [place] [address] Nurse Practitioner Hematology/Oncology 08/07/20 Cynthia Cutler, SCOTT [address] [place] [address] Specialty Certified Appliance Service Technician Hematology/Oncology 08/07/20 Kathrine Carpenter MD [address] [place] [place] [address] Physician Radiation Oncology 08/07/20 Amira Powell LSW Appraisal Specialist 09/16/21 C Web Developer Relationship Specialty Start Date End Date Gildardo Lacy [address] [place] [address] PCP - General Family Practice 07/16/20 Esdras Cash MD [address] [place] [place] [address] Physician Hematology/Oncology 08/07/20 Nathaly Biggs, SOFTWARE TECHNICAL LEAD.[employer] [address] [place] [address] Nurse Practitioner Hematology/Oncology 08/07/20 Cynthia Cutler, SCOTT [address] [place] [address] Specialty Certified Appliance Service Technician Hematology/Oncology 08/07/20 Kathrine Carpenter MD [address] [place] [place] [address] Physician Radiation Oncology 08/07/20 Amira Powell LSW Appraisal Specialist 09/16/21 C Web Developer Relationship Specialty Start Date End Date Gildardo Lacy [address] [place] [address] PCP - General Family Practice 07/16/20 Esdras Cash MD [address] [place], [place] [address] Physician Hematology/Oncology 08/07/20 Nathaly Biggs, SOFTWARE TECHNICAL LEAD.[address] [place] [address] Nurse Practitioner Hematology/Oncology 08/07/20 Cynthia Cutler, SCOTT [address] [place] [address] [place] [address] Specialty Certified Appliance Service Technician Hematology/Oncology 08/07/20 Kathrine Carpenter MD [address] [place] [address] [place] [address] Physician Radiation Oncology 08/07/20 Amira Powell LSW Appraisal Specialist 09/16/21 C Web Developer Relationship Specialty Start Date End Date Gildardo [place] [address] PCP - General Family Practice 07/16/20 Esdras Cash MD [address] [place] [address] [place] [address] Physician Hematology/Oncology 08/07/20 Nathaly Biggs, SOFTWARE TECHNICAL LEAD.[address] [place] [place] [address] Nurse Practitioner Hematology/Oncology 08/07/20 Cynthia Cutler, SCOTT [address] [place] [address] [place] [address] Specialty Certified Appliance Service Technician Hematology/Oncology 08/07/20 Kathrine Carpenter MD [address] [place] [address] [place] [address] Physician Radiation Oncology 08/07/20 Amira Powell LSW Appraisal Specialist 09/16/21 C Web Developer Relationship Specialty Start Date End Date Gildardo Lacy [address] [place] [address] PCP - General Family Practice 07/16/20 Esdras Cash MD [address] [facility] [place] [address] Physician Hematology/Oncology 08/07/20 Nathaly Biggs, SOFTWARE TECHNICAL LEAD.[employer] [address] [place] [address] Nurse Practitioner Hematology/Oncology 08/07/20 Cynthia Cutler, RN [address] [facility] [place] [address] Specialty Certified Appliance Service Technician Hematology/Oncology 08/07/20 Kathrine Carpenter MD [address] [place] [address] Physician Radiation Oncology 08/07/20 Amira Powell LSW Appraisal Specialist 09/16/21 C Web Developer Relationship Specialty Start Date End Date KalpanaGildardo stone [address] [place] [address] PCP - General Family Practice 07/16/20 Esdras Cash MD [address] [place] [address] Physician Hematology/Oncology 08/07/20 Nathaly Biggs, SOFTWARE TECHNICAL LEAD.[employer] [address] [place] [place] [address] Nurse Practitioner Hematology/Oncology 08/07/20 Cynthia Cutler, RN [address] [place] [address] Specialty Certified Appliance Service Technician Hematology/Oncology 08/07/20 Kathrine Carpenter MD [address] [facility] [place] [address] Physician Radiation Oncology 08/07/20 Amira oPwell LSW Appraisal Specialist 09/16/21 C Web Developer Relationship Specialty Start Date End Date Gildardo Lacy [address] [place] [address] PCP - General Family Practice 07/16/20 Esdras Cash MD [address] [facility] [place] [address] Physician Hematology/Oncology 08/07/20 Nathaly Biggs, SOFTWARE TECHNICAL LEAD.[employer] [address] [facility] [place] [address] Nurse Practitioner Hematology/Oncology 08/07/20 Cynthia Cutler, SCOTT [address] [facility] [place] [address] Specialty Certified Appliance Service Technician Hematology/Oncology 08/07/20 Kathrine Carpenter MD [address] [facility] [facility] [place] [address] Physician Radiation Oncology 08/07/20 Amira Powell LSW Appraisal Specialist 09/16/21 C Web Developer Relationship Specialty Start Date End Date ReggieGildardo [address] [place] [address] PCP - General Family Practice 07/16/20 Esdras Cash MD [address] [facility] [facility] [place] [address] Physician Hematology/Oncology 08/07/20 Nathaly Biggs, SOFTWARE TECHNICAL LEAD.[employer] [address] [facility] [place] [address] Nurse Practitioner Hematology/Oncology 08/07/20 Cynthia Cutler, SCOTT [address] [facility] [facility] [address] [place], [place] [address] Specialty Certified Appliance Service Technician Hematology/Oncology 08/07/20 Kathrine Carpenter MD [address] [place], [place] [address] Physician Radiation Oncology 08/07/20 Amira Powell LSW Appraisal Specialist 09/16/21 C Web Developer Relationship Specialty Start Date End Date Gildardo Lacy [address] [facility] [place] [address] PCP - General Family Medicine 07/16/20 Esdras Cash MD [address] [place] [place] [address] Physician Hematology/Oncology 08/07/20 Nathaly Biggs, SOFTWARE TECHNICAL LEAD.[employer] [address] [place] [place] [address] Nurse Practitioner Hematology/Oncology 08/07/20 Cynthia Cutler, SCOTT [address] [place] [address] Specialty Certified Appliance Service Technician Hematology/Oncology 08/07/20 Kathrine Carpenter MD [address] [place] [place] [address] Physician Radiation Oncology 08/07/20 Amira Powell, SHOE COBBLER Appraisal Specialist 09/16/21 C Web Developer Relationship Specialty Start Date End Date Gildardo Lacy [address] [place] [address] PCP - General Family Medicine 07/16/20 Esdras Cash MD [address] [place] [address] Physician Hematology/Oncology 08/07/20 Nathaly Biggs, SOFTWARE TECHNICAL LEAD.[facility] [address] [place] [address] Nurse Practitioner Hematology/Oncology 08/07/20 Cynthia Cutler, SCOTT [address] [place] [address] Specialty Certified Appliance Service Technician Hematology/Oncology 08/07/20 Kathrine Carpenter MD [address] [place] [address] [place] [address] Physician Radiation Oncology 08/07/20 Amira Powell LSW Appraisal Specialist 09/16/21 C Web Developer Relationship Specialty Start Date End Date Gildardo Lacy [address] [place] [address] PCP - General Family Medicine 07/16/20 Esdras Cash MD [address] [place] [address] [place] [address] Physician Hematology/Oncology 08/07/20 Nathaly Biggs, SOFTWARE TECHNICAL LEAD.[employer] [address] [place] [place] [address] Nurse Practitioner Hematology/Oncology 08/07/20 Cynthia Cutler, RN [address] [place] [address] [place] [address] Specialty Certified Appliance Service Technician Hematology/Oncology 08/07/20 Kathrine Carpenter MD [address] [place] [place] [address] Physician Radiation Oncology 08/07/20 Amira Powell LSW Appraisal Specialist 09/16/21 C Web Developer Relationship Specialty Start Date End Date Gildardo Lacy [address] [place] [address] PCP - General Family Medicine 07/16/20 Esdras Cash MD [address] [place] [address] [place] [address] Physician Hematology/Oncology 08/07/20 Nathaly Biggs, SOFTWARE TECHNICAL LEAD.[address] [place], [place] [address] Nurse Practitioner Hematology/Oncology 08/07/20 Cynthia uCtler, SCOTT [address] [place] [address] [place] [address] Specialty Certified Appliance Service Technician Hematology/Oncology 08/07/20 Kathrine Carpenter MD [address] [place] [address] [place] [address] Physician Radiation Oncology 08/07/20 Amira Powell LSW Appraisal Specialist 09/16/21 C Web Developer Relationship Specialty Start Date End Date Gildardo Lacy [address] [place] [address] PCP - General Family Medicine 07/16/20 Esdras Cash MD [address] [place] [address] [place] [address] Physician Hematology/Oncology 08/07/20 Nathaly Biggs, SOFTWARE TECHNICAL LEAD.[address] [place] [place] [address] Nurse Practitioner Hematology/Oncology 08/07/20 Cynthia Cutler, SCOTT [address] [place] [address] [place] [address] Specialty Certified Appliance Service Technician Hematology/Oncology 08/07/20 Kathrine Carpenter MD [address] [place] [address] [place] [address] Physician Radiation Oncology 08/07/20 Amira Powell LSW Appraisal Specialist 09/16/21 C Web Developer Relationship Specialty Start Date End Date Gildardo Lacy [address] [place] [address] PCP - General Family Medicine 07/16/20 Esdras Cash MD [address] [place] [address] Physician Hematology/Oncology 08/07/20 Nathaly Biggs, SOFTWARE TECHNICAL LEAD.[employer] [address] [place], [place] [address] Nurse Practitioner Hematology/Oncology 08/07/20 Cynthia Cutler, SCOTT [address] [place] [address] Specialty Certified Appliance Service Technician Hematology/Oncology 08/07/20 Kathrine Carpenter MD [address] [place] [address] Physician Radiation Oncology 08/07/20 Amira Powell LSW Appraisal Specialist 09/16/21 C Web Developer Relationship Specialty Start Date End Date Gildardo Lacy Carrie [address] [place] [address] PCP - General Family Medicine 07/16/20 Esdras Cash MD [address] [place] [address] [place] [address] Physician Hematology/Oncology 08/07/20 Nathaly Biggs, SOFTWARE TECHNICAL LEAD.[employer] [address] [place] [place] [address] Nurse Practitioner Hematology/Oncology 08/07/20 Cynthia Cutler, RN [address] [place] [address] Specialty Certified Appliance Service Technician Hematology/Oncology 08/07/20 Kathrine Carpenter MD [address] [place] [address] Physician Radiation Oncology 08/07/20 Amira Powell LSW Appraisal Specialist 09/16/21 C Web Developer Relationship Specialty Start Date End Date Gildardo Lacy [address] [place] [address] PCP - General Family Medicine 07/16/20 Esdras Cash MD [address] [place] [address] [place] [address] Physician Hematology/Oncology 08/07/20 Nathaly Biggs APRN.[employer] [address] [place] [address] Nurse Practitioner Hematology/Oncology 08/07/20 Cynthia Cutler, SCOTT [address] [place] [address] Specialty Certified Appliance Service Technician Hematology/Oncology 08/07/20 Kathrine Carpenter MD [address] [place] [place] [address] Physician Radiation Oncology 08/07/20 Amira Powell LSW Appraisal Specialist 09/16/21 C Web Developer Relationship Specialty Start Date End Date Gildardo Lacy [address] [place] [address] PCP - General Family Medicine 07/16/20 Esdras Cash MD [address] [place] [address] Physician Hematology/Oncology 08/07/20 Nathaly Biggs, SOFTWARE TECHNICAL LEAD.[employer] [address] [place] [address] Nurse Practitioner Hematology/Oncology 08/07/20 Kathrine Carpenter MD [address] [place] [address] Physician Radiation Oncology 08/07/20 Amira Powell LSW Appraisal Specialist 09/16/21 C Web Developer Relationship Specialty Start Date End Date Gildardo Lacy MD PCP - General 05/04/99 C Web Developer Relationship Specialty Start Date End Date Gildardo Lacy [address] [place] [address] PCP - General Family Medicine 07/16/20 Esdras Cash MD [address] [place] [address] Physician Hematology/Oncology 08/07/20 Nathaly Biggs, SOFTWARE TECHNICAL LEAD.[employer] [address] [place] [place] [address] Nurse Practitioner Hematology/Oncology 08/07/20 Kathrine Carpenter MD [address] [place] [place] [address] Physician Radiation Oncology 08/07/20 Amira Powell LSW Appraisal Specialist 09/16/21 C Web Developer Relationship Specialty Start Date End Date Gildardo Lacy [address] [place] [address] PCP - General Family Medicine 07/16/20 Esdras Cash MD [address] [place] [address] Physician Hematology/Oncology 08/07/20 Nathaly Biggs, SOFTWARE TECHNICAL LEAD.[employer] [address] [place] [address] Nurse Practitioner Hematology/Oncology 08/07/20 Kathrine Carpenter MD [address] [place] [address] Physician Radiation Oncology 08/07/20 Amira Powell LSW Appraisal Specialist 09/16/21 C Web Developer Relationship Specialty Start Date End Date Gildardo Lacy [address] [place] [address] PCP - General Family Medicine 07/16/20 Esdras Cash MD [address] [place] [address] [place] [address] Physician Hematology/Oncology 08/07/20 Nathaly Biggs, SOFTWARE TECHNICAL LEAD.[employer] [address] [place] [address] [place] [address] Nurse Practitioner Hematology/Oncology 08/07/20 Kathrine Carpenter MD [address] [place] [address] Physician Radiation Oncology 08/07/20 Amira Powell LSW Appraisal Specialist 09/16/21 Team Status: Active Member Role Status Dates Gildardo Lacy MD Primary Care Provider Active Team Status: Inactive Member Role Status Dates Gildardo Lacy MD Primary Care Provider Active S tart: September 08, 2023 End: September 08, 2023 Carmen Neely MD Attending Provider Active St art: September 08, 2023 End: September 08, 2023 C Web Developer Relationship Specialty Start Date End Date Gildardo Lacy [address] [place] [address] PCP - General Family Medicine 07/16/20 Esdras Cash MD [address] [facility] [place] [address] Physician Hematology/Oncology 08/07/20 Nathaly Biggs, ALEXY.[employer] [address] [facility] [place] [address] Nurse Practitioner Hematology/Oncology 08/07/20 Kathrine Carpenter MD [address] [facility] [place] [address] Physician Radiation Oncology 08/07/20 Amira Powell LSW Appraisal Specialist 09/16/21 C Web Developer Relationship Specialty Start Date End Date Gildardo Lacy [address] [place] [address] PCP - General Family Medicine 07/16/20 Esdras Cash MD [address] [facility] [place] [address] Physician Hematology/Oncology 08/07/20 Nathaly Biggs, SOFTWARE TECHNICAL LEAD.[employer] [address] [facility] [place] [place] [address] Nurse Practitioner Hematology/Oncology 08/07/20 Kathrine Carpenter MD [address] [place] [address] Physician Radiation Oncology 08/07/20 Amira Powell LSW Appraisal Specialist 09/16/21 C Web Developer Relationship Specialty Start Date End Date Reggie Gildardo Carrie [address] [place] [address] PCP - General Family Medicine 07/16/20 Esdras Cash MD [address] [place] [address] Physician Hematology/Oncology 08/07/20 Nathaly Biggs, SOFTWARE TECHNICAL LEAD.[employer] [address] [place] [address] Nurse Practitioner Hematology/Oncology 08/07/20 Cynthia Cutler, SCOTT [address] [place] [address] Specialty Certified Appliance Service Technician Hematology/Oncology 08/07/20 03/04/23 Kathrine Carpenter MD [address] [place] [place] [address] Physician Radiation Oncology 08/07/20 Amira Powell LSW Appraisal Specialist 09/16/21 C Web Developer Relationship Specialty Start Date End Date Gildardo Lacy [address] [address] PCP - General Family Medicine 07/16/20 Esdras Cash MD [address] [place] [address] Physician Hematology/Oncology 08/07/20 Nathaly Biggs, SOFTWARE TECHNICAL LEAD.[employer] [address] [place] [address] [place] [address] Nurse Practitioner Hematology/Oncology 08/07/20 Cynthia Cutler, SCOTT [address] [place] [place] [address] Specialty Certified Appliance Service Technician Hematology/Oncology 08/07/20 03/04/23 Kathrine Carpenter MD [address] [place] [address] [place] [address] Physician Radiation Oncology 08/07/20 Amira Powell LSW Appraisal Specialist 09/16/21 C Web Developer Relationship Specialty Start Date End Date Gildardo Lacy [address] [place] [address] PCP - General Family Medicine 07/16/20 Esdras Cash MD [address] [place] [address] [place] [address] Physician Hematology/Oncology 08/07/20 Nathaly Biggs APRN.[employer] [address] [place] [address] [place] [address] Nurse Practitioner Hematology/Oncology 08/07/20 Cynthia Cutler, SCOTT [address] [place] [place] [address] Specialty Certified Appliance Service Technician Hematology/Oncology 08/07/20 03/04/23 Kathrine Carpenter MD [address] [place] [address] Physician Radiation Oncology 08/07/20 Amira Powell LSW Appraisal Specialist 09/16/21 C Web Developer Relationship Specialty Start Date End Date Gildardo Lacy [address] [place] [address] PCP - General Family Medicine 07/16/20 Esdras Cash MD [address] [place] [address] Physician Hematology/Oncology 08/07/20 Nathaly Biggs, SOFTWARE TECHNICAL LEAD.[employer] [address] [place] [address] Nurse Practitioner Hematology/Oncology 08/07/20 Cynthia Cutler, SCOTT [address] [place] [place] [address] Specialty Certified Appliance Service Technician Hematology/Oncology 08/07/20 03/04/23 Kathrine Carpenter MD [address] [place] [address] Physician Radiation Oncology 08/07/20 C Web Developer Relationship Specialty Start Date End Date Gildardo Lacy [address] [place] [address] PCP - General Family Medicine 07/16/20 Esdras Cash MD [address] [place] [address] Physician Hematology/Oncology 08/07/20 Nathaly Biggs, SOFTWARE TECHNICAL LEAD.[employer] [address] [place] [address] Nurse Practitioner Hematology/Oncology 08/07/20 Cynthia Cutler, SCOTT [address] [place] [address] Specialty Certified Appliance Service Technician Hematology/Oncology 08/07/20 03/04/23 Kathrine Carpenter MD [address] [place] [address] [place] [address] Physician Radiation Oncology 08/07/20 C Web Developer Relationship Specialty Start Date End Date Gildardo Lacy MD [address] [place] [address] [place] [address] PCP - General Cardiology 09/12/22 C Web Developer Relationship Specialty Start Date End Date Gildardo Lacy MD [address] [place] [address] [place] [address] PCP - General Cardiology 09/12/22 C Web Developer Relationship Specialty Start Date End Date Gildardo Lacy MD [address] [place] [address] PCP - General Cardiology 09/12/22 C Web Developer Relationship Specialty Start Date End Date Gildardo Lacy MD [address] [place] [address] [place] [address] PCP - General Cardiology 09/12/22 C Web Developer Relationship Specialty Start Date End Date Gildardo Lacy MD [address] [place] [address] PCP - General Cardiology 09/12/22 C Web Developer Relationship Specialty Start Date End Date Gildardo Lacy MD [address] [place] [address] [place] [address] PCP - General Cardiology 09/12/22 C Web Developer Relationship Specialty Start Date End Date Gildardo Lacy MD [address] [place] [address] [place] [address] PCP - General Cardiology 09/12/22 C Web Developer Relationship Specialty Start Date End Date Gildardo Lacy MD [address] [place] [address] [place] [address] PCP - General Cardiology 09/12/22 C Web Developer Relationship Specialty Start Date End Date Gildardo Lacy MD [address] [place] [address] [place] [address] PCP - General Cardiology 09/12/22 C Web Developer Relationship Specialty Start Date End Date Gildardo Lacy MD [address] [place] [address] [place] [address] PCP - General Cardiology 09/12/22 C Web Developer Relationship Specialty Start Date End Date Gildardo Lacy MD [address] [place] [address] [place] [address] PCP - General Cardiology 09/12/22 C Web Developer Relationship Specialty Start Date End Date Gildardo Lacy MD [address] [place] [address] [place] [address] PCP - General Cardiology 09/12/22 C Web Developer Relationship Specialty Start Date End Date Gildardo Lacy MD [address] [place] [address] PCP - General Family Medicine 07/16/20 Esdras Cash MD [address] [place] [address] [place] [address] Physician Hematology/Oncology 08/07/20 Nathaly Biggs, [employer] [address] [address] Nurse Practitioner Hematology/Oncology 08/07/20 Kathrine Carpenter MD [address] [place] [address] Physician Radiation Oncology 08/07/20 Amira Powell LSW Appraisal Specialist 09/16/21 C Web Developer Relationship Specialty Start Date End Date Gildardo Lacy MD [address] [place] [address] [place] [address] PCP - General Cardiology 09/12/22 C Web Developer Relationship Specialty Start Date End Date Gildardo Lacy MD [address] [place] [address] [place] [address] PCP - General Cardiology 09/12/22 C Web Developer Relationship Specialty Start Date End Date Gildardo Lacy MD [address] [place] [address] [place] [address] PCP - General Cardiology 09/12/22 C Web Developer Relationship Specialty Start Date End Date Gildardo Lacy MD [address] [place] [address] PCP - General Family Medicine 11/17/23 C Web Developer Relationship Specialty Start Date End Date Gildardo Lacy MD [address] [place] [address] [place] [address] PCP - General Cardiology 09/12/22 C Web Developer Relationship Specialty Start Date End Date Gildardo Lacy MD [address] [place] [address] [place] [address] PCP - General Cardiology 09/12/22 C Web Developer Relationship Specialty Start Date End Date Gildardo Lacy MD [address] [place] [address] [place] [address] PCP - General Cardiology 09/12/22 C Web Developer Relationship Specialty Start Date End Date Gildardo Lacy MD [address] [place] [address] [place] [address] PCP - General Cardiology 09/12/22 C Web Developer Relationship Specialty Start Date End Date Gildardo Lacy MD [address] [place] [address] [place] [address] PCP - General Cardiology 09/12/22 C Web Developer Relationship Specialty Start Date End Date Gildardo Lacy MD [address] [place] [address] [place] [address] PCP - General Cardiology 09/12/22 C Web Developer Relationship Specialty Start Date End Date Gildardo Lacy MD [address] [place] [address] [place] [address] PCP - General Cardiology 09/12/22 C Web Developer Relationship Specialty Start Date End Date Gildardo Lacy MD [address] [place] [address] [place] [address] PCP - General Cardiology 09/12/22 C Web Developer Relationship Specialty Start Date End Date Gildardo Lacy MD [address] [place] [address] PCP - General Family Medicine 07/16/20 Esdras Cash MD [address] [place] [address] [place] [address] Physician Hematology/Oncology 08/07/20 Nathaly Biggs, [employer] [address] [place] [address] Nurse Practitioner Hematology/Oncology 08/07/20 Kathrine Carpenter MD [address] [place] [address] [place] [address] Physician Radiation Oncology 08/07/20 Amira Powell LSW Appraisal Specialist 09/16/21 Cassie Hood PA [address] [address] [place] [address] Family Medicine 05/24/24 C Web Developer Relationship Specialty Start Date End Date Gildardo Lacy MD [address] [place] [address] PCP - General Cardiology 09/12/22 C Web Developer Relationship Specialty Start Date End Date Gildardo Lacy MD [address] [place] [address] PCP - General Family Medicine 07/16/20 Esdras Cash MD [address] [place] [address] [place] [address] Physician Hematology/Oncology 08/07/20 Ntahaly Biggs, [employer] [address] [place] [address] Nurse Practitioner Hematology/Oncology 08/07/20 Kathrine Carpenter MD [address] [place] [address] Physician Radiation Oncology 08/07/20 Amira Powell, SHOE COBBLER Appraisal Specialist 09/16/21 Cassie Hood PA [address] [facility] [address] [place] [address] Family Medicine 05/24/24 C Web Developer Relationship Specialty Start Date End Date Gildardo Lacy MD [address] [place] [address] PCP - General Family Medicine 07/16/20 Esdras Cash MD [address] [place] [address] Physician Hematology/Oncology 08/07/20 Nathaly Biggs APRN.[employer] [address] [place] [address] Nurse Practitioner Hematology/Oncology 08/07/20 Kathrine Carpenter MD [address] [place] [address] Physician Radiation Oncology 08/07/20 Amira Powell LSW Appraisal Specialist 09/16/21 Cassie Hood PA [address] [facility] [address] [place] [address] Family Medicine 05/24/24 C Web Developer Relationship Specialty Start Date End Date Gildardo Lacy MD [address] [place] [address] PCP - General Cardiology 09/12/22 C Web Developer Relationship Specialty Start Date End Date Gildardo Lacy MD [address] [place] [address] PCP - General Family Medicine 07/16/20 Esdras Cash MD [address] [place] [address] Physician Hematology/Oncology 08/07/20 Nathaly Biggs APRN.[employer] [address] [place] [address] Nurse Practitioner Hematology/Oncology 08/07/20 Kathrine Carpenter MD [address] [place] [address] Physician Radiation Oncology 08/07/20 Amira Powell LSW Appraisal Specialist 09/16/21 Cassie Hood PA [address] [place] [address] [place] [address] Family Medicine 05/24/24 Goals (unrecognized section and content) Goals may be documented in a n alternate section FOR RECORDS PERTAINING TO PATIENTS WHO ARE OR HAVE BEEN ENROLLED IN A CHEMICAL DEPENDENCY/SUBSTANCEABUSE PROGRAM, SOME INFORMATION MAY BE OMITTED. This clinical summary was aggregated from multiple sources. Caution should be exercised in using it in the provision of clinical care. This summary normalizes information from multiple sources, and as a consequence, information in this document may materially change the coding, format and clinical context of patient data. In addition, data may be omitted in some cases. CLINICAL DECISIONS SHOULD BE BASED ON THE PRIMARY CLINICAL RECORDS. [employer] provides no warranty or guarantee of the accuracy or completeness of information in this document.
[2024-07-23 19:59] LABS: Bilirubin Urine NEGATIVE (NEGATIVE); Blood Urine NEGATIVE (NEGATIVE); Clarity Urine CLEAR (CLEAR); Color Urine LT. YELLOW (YELLOW); Glucose Urine UA NEGATIVE (NEGATIVE); Ketones Urine NEGATIVE (NEGATIVE); Leukocyte Esterase Urine NEGATIVE (NEGATIVE); Nitrite Urine NEGATIVE (NEGATIVE); Protein Urine NEGATIVE (NEG/TRACE); Specific Gravity Urine 1.015 (1.005-1.025); Urine Microscopic Indicated NO
[2024-07-23 20:11] LABS: Basophils Percent Auto 0.6 % (0.2-2.0); Eosinophils Percent Auto 0.6 % (0.9-7.0); Hematocrit 37.6 % (42.0-54.0); Hemoglobin 12.8 g/dL (14.0-18.0); Immature Granulocytes Abs Auto 0.02 10^3/uL (0.00-0.03); Immature Granulocytes Pct Auto 0.3 % (0.0-0.5); Lymphocytes Absolute Auto 1.4 10^3/uL (1.2-3.8); Lymphocytes Percent Auto 19.7 % (20.5-60.0); Mean Corpuscular Hemoglobin 34.3 pg (25.9-34.0); Mean Corpuscular Volume 100.8 fL (80.0-94.0); Mean Platelet Volume 9.3 fL (9.5-13.5); Monocytes Absolute Auto 0.9 10^3/uL (0.3-0.8); Monocytes Percent Auto 12.9 % (1.7-12.0); Neutrophils Absolute Auto 4.7 10^3/uL (1.4-6.5); Neutrophils Percent Auto 65.9 % (43.0-75.0); Platelet Count 239 10^3/uL (150-450); Red Blood Count 3.73 10^6/uL (4.70-6.10); Red Cell Distribution Width 13.6 % (11.0-15.0); White Blood Count 7.2 10^3/uL (4.0-11.0)
[2024-07-23 20:26] LABS: INR 1.05; Prothrombin Time 11.1 sec (9.0-11.6)
[2024-07-23 20:27] LABS: Anion Gap 12.3
[2024-07-23 20:29] LABS: Alanine Aminotransferase 15 U/L (16-63); Albumin Globulin Ratio 1.1; Albumin Level 3.9 g/dL (3.4-5.0); Alkaline Phosphatase 86 U/L (46-116); Aspartate Amino Transferase 24 U/L (15-37); BUN Creatinine Ratio 26.4; Bilirubin Total 1.1 mg/dL (0.2-1.0); Calcium 9.3 mg/dL (8.5-10.1); Carbon Dioxide 25.9 mmol/L (21.0-32.0); Chloride 100 mmol/L (98-107); Estimated GFR (African America >60 (>=60 mL/min/1.73m^2); Estimated GFR (Non-African Ame >60 (>=60 mL/min/1.73m^2); Globulin 3.5 g/dL; Glucose 92 mg/dL (74-106); Magnesium 1.7 mg/dL (1.8-2.4); Potassium 4.2 mmol/L (3.5-5.1); Sodium 134 mmol/L (136-145); Total Protein 7.4 g/dL (6.4-8.2); Troponin I High Sensitivity 14.2 pg/mL (4.0-76.1)
[2024-07-23 20:32] LABS: Influenza Virus A Antigen Negative; Influenza Virus B Antigen Negative; Internal Control Within Normal Limits; SARS-CoV-2 Ag NEGATIVE (NEGATIVE)
[2024-07-23 20:36] LABS: Lactate/Lactic Acid 1.1 mmol/L (0.4-2.0)
[2024-07-23] MEDS: OXYCODONE HCL/ACETAMINOPHEN 5MG/325MG 1 TAB PO (21:15)
[2024-07-23] MEDS: ASPIRIN 325 MG TABLET PO (21:15)
--- OUTSIDE RECORDS SUMMARY | 2024-07-23 23:05 | XMS_ITS | CCD ---
Author Organization [facility] ion [facility] Care Team Providers Care 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 Name Role Phone AMSTUTZ, HASEEB W Unavailable [...] Unavailable Unavailable Gildardo Lacy Primary Care Provider [phone] Esdras Cash MD Unavailable Josemanuel SYSTEM ADMINISTRATION MANAGER.SILVINO, Nathaly Unavailable He CHAVEZ Cynthia Unavailable [phone] Kathrine Carpenter MD Unavailable Amira Quinonez Unavailable Unavailable BONITA PITTMAN Primary Care Unavailable GILDARDO LACY Referring Unavailable CHARLES MORGAN Admitting Unavailable CHARLES MORGAN Attending Unavailable GILDARDO LACY Primary Care Unavailable CHARLENE ARANA Referring Unavailable DAMIEN YU Admitting Unavailable DAMIEN YU Attending Unavailable Gildardo Lacy Unavailable Unavailable Unavailable Gildardo Lacy Primary Care Provider [phone] Esdras Cash MD Unavailable Josemanuel SYSTEM ADMINISTRATION MANAGER.SILVINO Nathaly Unavailable He CHAVEZ Cynthia Unavailable Kathrine Carpenter MDip Unavailable [phone] Neely, Dr. Carmen Schneider Attending Sarah vailable Neely, Dr. Carmen Schneider Referring Sarah vailable Naderer, Dr. Gildardo Mccall Primary Care Unavai lable Shilpar, Gildardo Butler Primary Care Provider He CHAVEZ, Cynthia Unavailable Naderer, Gildardo Butelr Primary Care Provider [phone] Shailesh VO, Esdras R Unavailable [phone] Josemanuel SYSTEM ADMINISTRATION MANAGER.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, Nathaly Unavailable He CHAVEZ, Cynthia Unavailable [phone] Ron VO, Kathrine Сергей Unavailable Amira Quinonez Unavailable Unavailable Naderer, Dr. Gildardo Mccall [facility], Dr. Carmen Schneider Attending Sarah vailable Neely, Dr. Carmen Schneider Referring Sarah vailable Naderer, Dr. Gildardo Mccall [facility], Dr. Carmen Schneider Attending Sarah vailable [...] Care Provider MD Carmen Neely Attending Provider [phone] VALE CHIRINOS Attending Unavailable GILDARDO LACY Primary Care Unavailable CARMEN NEELY Attending Unavailable KALPANAEREGILDARDO Villarreal Primary Care UnavailCARMEN Lea Attending Unavailable CARMEN NEELY Referring Unavailable GILDARDO LACY Primary Care Unavailkellie Cutler RN, Cynthia Unavailable [phone] Gildardo Lacy MD Primary Care Provider Carmen Neely Attending Unavailable Carmen Neely Admitting Unavailable Gildardo Lacy Primary Care Unavailable Gildardo Lacy MD Primary Care Provider Gildardo Lacy MD Primary Care Provider CASSIE [...] CASSIE HOOD Attending Unavailable Cassie Crum Unavailable [phone] NADERER, GILDARDO A Primary Care Unavailable ESDRAS [...] Chronic obstructive pulmonary disease, unspecified COPD type ([facility]) Take 3 mL (2.5 mg) by nebulization [...] 0 08/05/2021 Discontinued (Changing Therapy/Dosage Form) lansoprazole (MI EVACID ORAL) Take by mouth. 0 Active [...] Onset: 4 Chronic Other aftercare (1 source) exterminator (current) use of aspirin; Translations: [LONGTERM CURRENT USE OF ASPIRIN] Onset: 3 Episodic Other aftercare (1 source) Other termination clerk (current) drug therapy; Translations: [OTH DISPLAYER MERCHANDISE CURRENT DRUG THERAPY] Onset: 3 Episodic Other [...] current use of drug therapy; Translations: [Other shelter (current) drug therapy] Onset: 4 10-21-2023 Episodic Other aftercare (6 sources) Patient encounter status; Translations: [Other shelter (current) drug therapy] Onset: 4 10-21-2023 Episodic [...] Test Name Value Interpretation Reference Range Facility [facility] 06-21-2024 [facility] Office Visit (RADTSA ) ALEJO FLOYD ([id number]) 1960 M Date Time Provider Department 06/21/24 1:30 PM Kathrine CARPENTER During your visit today, we recorded the following information about you: Temperature Pulse Respiration Blood pressure 97.9 degrees 95/minute 18/minute 110/58 Weight 59.4 kg Kathrine Carpenter MD 06/29/2024 12:44 PM Signed Radiation Oncology - Follow Up Note DIAGNOSIS: Squamous cell carcinoma oropharynx, 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 Normal [facility] CNOVon 06-10-2024 CNOV Office Visit (ORHSMN ) ALEJO FLOYD ([id number]) 1960 M Date Time Provider Department 06/10/24 1:30 PM HEBERT MIGUEL [facility] During your visit today, we recorded the following information about you: Weight Height 63.5 kg 1.778 m Hebert Miguel MD 06/10/2024 5:06 PM Signed SHOULDER/ELBOW INITIAL CONSULT SERVICE DATE: 06/09/2024 PCP: Gildardo Lacy MD REFERRING PROVIDER: EMILIE Spicer [address] [place] [address] Consult requested for an opinion regarding the evaluation and treatment of the above. My final impression and recommendations will be communicated back to the requesting physician by way of the shared medical record or letter via US mail. CHIEF COMPLAINT: Right shoulder pain SUBJECTIVE HISTORY OF PRESENT ILLNESS: 63 year old male, who presents for the above CC. Patient is a mvnhz-zyvk-ujszoxpm 63-year-old male with past medical history of [...] without relief. Has been taking Tylenol and hxlu-jvv-humhcbu medications. Pain is improved when he is [...] mg. albuterol (more content not included)... Normal [facility] CT Shoulder - right WO contr ольга [...] are maintained. IMPRESSION: No acute bony abnormality. [facility] Transcribe Date/Time: Jun 10 2024 5:13P Dictated by : GERMAN VALDEZ MD This examination was interpreted and the report reviewed and electronically signed by: GERMAN VALDEZ MD on Jun 10 2024 5:13PM EST [id number]^SI^ACN [facility], Radiologi MD dank - 06/10/2024 [...] are maintained. IMPRESSION: No acute bony abnormality. Car Hop: [facility] Transcribe Date/Time: Jun 10 2024 5:13P Dictated by : GERMAN VALDEZ MD This examination was interpreted and the report reviewed and electronically signed by: GERMAN VALDEZ MD on Jun 10 2024 5:13PM EST [id number]^SI^ACN [facility] Study observation (narrative) [facility] No Panel InformationOrdered By: Radiologist Radiology on 06-10-2024 [facility] [employer] Work Phone: XR SHLDR >/=3V AP/DEVON AP/OTH [...] are maintained. IMPRESSION: No acute bony abnormality. Car Hop: [facility] Transcribe Date/Time: Jun 10 2024 5:13P Dictated by : GERMAN VALDEZ MD This examination was interpreted and the report reviewed and electronically signed by: GERMAN VALDEZ MD on Jun 10 2024 5:13PM EST [id number] Normal [facility] XR Shoulder - right 3 Viewso n 06-10-2024 IMPRESSION: No acute bony abnormality. Car Hop: [employer] Transcribe Date/Time: Jun 10 2024 5:13P Dictated [...] spaces are maintained. DIVISION OF RADIOLOGY Provider, [facility] - 06/10/2024 * * *Final Report* [...] maintained. IMPRESSION IMPRESSION: No acute bony abnormality. Car Hop: [employer] Transcribe Date/Time: Jun 10 2024 5:13P Dictated by : GERMAN VALDEZ MD This examination was interpreted and the report reviewed and electronically signed by: GERMAN VALDEZ MD on Jun 10 2024 5:13PM EST [facility] Radiology Study observation (narrative) [facility] CNOVon 12-22-2023 CNOV Office Visit (RADTSA ) MARIELALEJO ([id number]) 1960 M Date Time Provider Department 12/22/23 2:45 PM Kathrine CARPENTER During your visit today, we recorded the following information about you: Temperature Pulse Respiration Blood pressure 98.2 degrees 104/minute 18/minute 126/89 Weight 61.9 kg Kathrine Carpenter MD 12/22/2023 3:26 PM Signed Radiation Oncology - Follow Up Note DIAGNOSIS: Squamous cell carcinoma oropharynx, 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 Normal [facility] CNOVSPon 12-22-2023 CNOVS Visit (SP) Office (H EMASA) ALEJO FLOYD ([id number]) 1960 M Date Time Provider Department 12/22/23 [...] No date: COPD (chronic obstructive pulmonary disease) ([facility]) No date: Depression No date: Other emphysema [...] to auscultat (more content not included)... Normal [facility] PET+CT Guidance for localiza tion of tumor [...] any questions regarding this interpretation, please call [phone]. If you are unable to reach us at the number above, please feel free to contact [facility] eRadiology at [phone]. DIVISION OF RADIOLOGY * * *Final Report* [...] * Radiopharmaceutical Activity: 6.8 mCi * Radiopharmaceutical: J92-Mtekxeiumlnovqlhxl (FDG) * All reported standardized uptake values represent maximum SUV (SUVmax) per body weight, unless otherwise specified. COMPARISON: 02/11/2023 CORRELATION: CT neck and chest 09/10/2022 RESULT: REFERENCES: SUV reference values: * Blood pool (descending aorta) activity: SUVmax 2.1 * Background liver activity: SUVmax 2.7 Fireworks Assembly Supervisor (topogram) images: No additional findings. Notes and [...] uptake. DIVISION OF RADIOLOGY Provider, Doe Will [facility] - 12/17/2023 * * *Final Report* [...] * Radiopharmaceutical Activity: 6.8 mCi * Radiopharmaceutical: W82-Yzadjerybgimsculoo (FDG) * All reported standardized uptake values represent maximum SUV (SUVmax) per body weight, unless otherwise specified. COMPARISON: 02/11/2023 CORRELATION: CT neck and chest 09/10/2022 RESULT: REFERENCES: SUV reference values: * Blood pool (descending aorta) activity: SUVmax 2.1 * Background liver activity: SUVmax 2.7 Fireworks Assembly Supervisor (topogram) images: No additional findings. Notes and [...] any questions regarding this interpretation, please call [phone]. If you are unable to reach us at the number above, please feel free to contact [facility] eRadiology at [phone]. [facility] PET+CT Guidance for localiza tion of tumor of Skull base to mid-thigh-- W 18F-FDG IVOrdered By: [facility] Provider on 12-17-2023 [facility] CBC W Auto Differential pane l (Bld)on 12-15-2023 Basophils (Bld) [#/Vol] 0.04 10*3/uL [facility] Basophils/100 WBC (Bld) 0.6 % [facility] Differential cell count method Nom (Bld) Auto [facility] Eosinophils (Bld) [#/Vol] [facility] Eosinophils/100 WBC (Bld) 0.3 % [facility] Erythrocyte distribution width (RBC) [Ratio] 15.7 % High 11.5 - 15.0 % [facility] Hematocrit (Bld) [Volume fraction] 41.9 % 39.0 - 51.0 % [facility] Hemoglobin (Bld) [Mass/Vol] 13.9 g/dL 13.0 - 17.0 g/dL [facility] Immature granulocytes (Bld) [#/Vol] [facility] Immature granulocytes/100 WBC (Bld) 0.3 % [facility] Interpretation and review of laboratory results Abnormal [facility] Lymphocytes (Bld) [#/Vol] 1.15 10*3/uL [facility] Lymphocytes/100 WBC (Bld) 17.6 % [facility] MCH (RBC) [Entitic mass] 33.7 pg 26.0 - 34.0 pg [facility] MCHC (RBC) [Mass/Vol] 33.2 g/dL 30.5 - 36.0 g/dL [facility] MCV (RBC) [Entitic vol] 101.5 fL High 80.0 - 100.0 fL [facility] Monocytes (Bld) [#/Vol] 0.87 10*3/uL High [facility] Monocytes/100 WBC (Bld) 13.3 % [facility] Neutrophils (Bld) [#/Vol] 4.45 10*3/uL [facility] Neutrophils/100 WBC (Bld) 67.9 % [facility] Nucleated RBC (Bld) [#/Vol] [facility] Nucleated RBC/100 WBC (Bld) [Ratio] 0.0 % /100 WBC [facility] Platelet mean volume (Bld) [Entitic vol] 9.8 fL 9.0 - 12.7 fL [facility] Platelets (Bld) [#/Vol] 235 10*3/uL [facility] RBC (Bld) [#/Vol] 4.13 10*6/uL Low 4.20 - 6.00 m/uL [facility] WBC (Bld) [#/Vol] 6.55 10*3/uL [facility] Basophils (Bld) [#/Vol] 0.04 10*3/uL Normal <0.11 [facility] Comment on above: Order Comment: Speci men Type: BLOOD SPECIMENOrdering Facility: [facility] Address: [address] [place] [address] Performed By: #### 5 7021-8 ####[facility] LABCLIA [id number] [place] [address] Basophils/100 WBC (Bld) 0.6 % Normal [facility] Comment on above: Order Comment: Speci men Type: BLOOD SPECIMENOrdering Facility: [facility] Address: [address] [place] [address] Performed By: #### 5 7021-8 ####[facility] LABCLIA [id number] [place] [address] Differential cell count method Nom (Bld) Auto Normal [facility] Comment on above: Order Comment: Speci men Type: BLOOD SPECIMENOrdering Facility: [facility] Address: [address] [place] [address] Performed By: #### 5 7021-8 ####[facility] LABCLIA [id number] [place] [address] Eosinophils (Bld) [#/Vol] 10*3/uL Normal <0.46 [facility] Comment on above: Order Comment: Speci men Type: BLOOD SPECIMENOrdering Facility: [facility] Address: [address] [place] [address] Performed By: #### 5 7021-8 ####[facility] LABCLIA [id number] [place] [address] Eosinophils/100 WBC (Bld) 0.3 % Normal [facility] Comment on above: Order Comment: Speci men Type: BLOOD SPECIMENOrdering Facility: [facility] Address: [address] [place] [address] Performed By: #### 5 7021-8 ####[facility] LABCLIA [id number] [place] [address] Erythrocyte distribution width (RBC) [Ratio] 15.7 % High 11.5-15.0 [facility] Comment on above: Order Comment: Speci men Type: BLOOD SPECIMENOrdering Facility: [facility] Address: [address] [place] [address] Performed By: #### 5 7021-8 ####[facility] LABCLIA [id number] [place] [address] Hematocrit (Bld) [Volume fraction] 41.9 % Normal 39.0-51.0 [facility] Comment on above: Order Comment: Speci men Type: BLOOD SPECIMENOrdering Facility: [facility] Address: [address] [place] [address] Performed By: #### 5 7021-8 ####[facility] LABCLIA [id number] [place] [address] Hemoglobin (Bld) [Mass/Vol] 13.9 g/dL Normal 13.0-17.0 [facility] Comment on above: Order Comment: Speci men Type: BLOOD SPECIMENOrdering Facility: [facility] Address: [address] [place] [address] Performed By: #### 5 7021-8 ####[facility] LABCLIA [id number] [place] [address] Immature granulocytes (Bld) [#/Vol] 10*3/uL Normal <0.10 [facility] Comment on above: Order Comment: Speci men Type: BLOOD SPECIMENOrdering Facility: [facility] Address: [address] [place] [address] Performed By: #### 5 7021-8 ####[facility] LABCLIA [id number] [place] [address] Immature granulocytes/100 WBC (Bld) 0.3 % Normal [facility] Comment on above: Order Comment: Speci men Type: BLOOD SPECIMENOrdering Facility: [facility] Address: [address] [place] [address] Performed By: #### 5 7021-8 ####[facility] LABCLIA [id number] [place] [address] Lymphocytes (Bld) [#/Vol] 1.15 10*3/uL Normal 1.00-4.00 [facility] Comment on above: Order Comment: Speci men Type: BLOOD SPECIMENOrdering Facility: [facility] Address: [address] [place] [address] Performed By: #### 5 7021-8 ####[facility] LABCLIA [id number] [place] [address] Lymphocytes/100 WBC (Bld) 17.6 % Normal [facility] Comment on above: Order Comment: Speci men Type: BLOOD SPECIMENOrdering Facility: [facility] Address: [address] [place] [address] Performed By: #### 5 7021-8 ####[facility] LABCLIA [id number] [place] [address] MCH (RBC) [Entitic mass] 33.7 pg Normal 26.0-34.0 [facility] Comment on above: Order Comment: Speci men Type: BLOOD SPECIMENOrdering Facility: [facility] Address: [address] [place] [address] Performed By: #### 5 7021-8 ####[facility] LABCLIA [id number] [place] [address] MCHC (RBC) [Mass/Vol] 33.2 g/dL Normal 30.5-36.0 [facility] Comment on above: Order Comment: Speci men Type: BLOOD SPECIMENOrdering Facility: [facility] Address: [address] [place] [address] Performed By: #### 5 7021-8 ####[facility] LABCLIA [id number] [place] [address] MCV (RBC) [Entitic vol] 101.5 fL High 80.0-100.0 [facility] Comment on above: Order Comment: Speci men Type: BLOOD SPECIMENOrdering Facility: [facility] Address: [address] [place] [address] Performed By: #### 5 7021-8 ####[facility] LABCLIA [id number] [place] [address] Monocytes (Bld) [#/Vol] 0.87 10*3/uL High <0.87 [facility] Comment on above: Order Comment: Speci men Type: BLOOD SPECIMENOrdering Facility: [facility] Address: [address] [place] [address] Performed By: #### 5 7021-8 ####[facility] LABCLIA [id number] [place] [address] Monocytes/100 WBC (Bld) 13.3 % Normal [facility] Comment on above: Order Comment: Speci men Type: BLOOD SPECIMENOrdering Facility: [facility] Address: [address] [place] [address] Performed By: #### 5 7021-8 ####[facility] LABCLIA [id number] [place] [address] Neutrophils (Bld) [#/Vol] 4.45 10*3/uL Normal 1.45-7.50 [facility] Comment on above: Order Comment: Speci men Type: BLOOD SPECIMENOrdering Facility: [facility] Address: [address] [place] [address] Performed By: #### 5 7021-8 ####[facility] LABCLIA [id number] [place] [address] Neutrophils/100 WBC (Bld) 67.9 % Normal [facility] Comment on above: Order Comment: Speci men Type: BLOOD SPECIMENOrdering Facility: [facility] Address: [address] [place] [address] Performed By: #### 5 7021-8 ####[facility] LABCLIA [id number] [place] [address] Nucleated RBC (Bld) [#/Vol] 10*3/uL Normal <0.01 [facility] Comment on above: Order Comment: Speci men Type: BLOOD SPECIMENOrdering Facility: [facility] Address: [address] [place] [address] Performed By: #### 5 7021-8 ####[facility] LABCLIA [id number] [place] [address] Nucleated RBC/100 WBC (Bld) [Ratio] 0.0 /100 WBC Normal [facility] Comment on above: Order Comment: Speci men Type: BLOOD SPECIMENOrdering Facility: [facility] Address: [address] [place] [address] Performed By: #### 5 7021-8 ####[facility] LABCLIA [id number] [place] [address] Platelet mean volume (Bld) [Entitic vol] 9.8 fL Normal 9.0-12.7 [facility] Comment on above: Order Comment: Speci men Type: BLOOD SPECIMENOrdering Facility: [facility] Address: [address] [place] [address] Performed By: #### 5 7021-8 ####[facility] LABCLIA [id number] [place] [address] Platelets (Bld) [#/Vol] 235 10*3/uL Normal 150-400 [facility] Comment on above: Order Comment: Speci men Type: BLOOD SPECIMENOrdering Facility: [facility] Address: [address] [place] [address] Performed By: #### 5 7021-8 ####[facility] LABCLIA [id number] [place] [address] RBC (Bld) [#/Vol] 4.13 10*6/uL Low 4.20-6.00 [facility] Comment on above: Order Comment: Speci men Type: BLOOD SPECIMENOrdering Facility: [facility] Address: [address] [place] [address] Performed By: #### 5 7021-8 ####[facility] LABCLIA [id number] [place] [address] WBC (Bld) [#/Vol] 6.55 10*3/uL Normal 3.70-11.00 [facility] Comment on above: Order Comment: Speci men Type: BLOOD SPECIMENOrdering Facility: [facility] Address: [address] [place] [address] Performed By: #### 5 7021-8 ####[facility] LABCLIA [id number] [place] [address] Comprehensive metabolic 2000 panelOrdered By: Felisha Munoz on 12-15-2023 Albumin [Mass/Vol] 4.7 g/dL 3.9 - 4.9 g/dL [facility] ALP [Catalytic activity/Vol] 62 U/L 38 - 113 U/L [facility] ALT [Catalytic activity/Vol] 7 U/L Low 10 - 54 U/L [facility] Anion gap [Moles/Vol] 9 mmol/L 8 - 15 mmol/L [facility] AST [Catalytic activity/Vol] 19 U/L 14 - 40 U/L [facility] Bilirubin [Mass/Vol] 1.0 mg/dL 0.2 - 1 .3 mg/dL [facility] Calcium [Mass/Vol] 10.3 mg/dL High 8.5 - 10. 2 mg/dL [facility] Chloride [Moles/Vol] 105 mmol/L 98 - 10 7 mmol/L [facility] CO2 [Moles/Vol] 24 mmol/L 22 - 30 mmol/L [facility] Creatinine [Mass/Vol] 0.81 mg/dL 0.73 - 1.22 mg/dL [facility] GFR/1.73 sq M.predicted among non-blacks MDRD (S/P/Bld) [Vol rate/Area] 99 mL/min/{1.73_m2} - PINF [facility] Comment on above: Estimated Glomerular Filtration Rate [...] 104 mg/dL High 74 - 99 mg/dL [facility] Comment on above: The [place] Diabete s Association (ADA) provides guidance for [...] Standards of Medical Care in Diabetes 2016, [place] Diabetes Association. Diabetes Care. 2016.39(Suppl 1). Interpretation and review of laboratory results Abnormal [facility] Potassium [Moles/Vol] 4.4 mmol/L 3.7 - 5.1 mmol/L [facility] Protein [Mass/Vol] 7.5 g/dL 6.3 - 8.0 g/dL [facility] Sodium [Moles/Vol] 138 mmol/L 136 - 144 mmol/L [facility] Urea nitrogen [Mass/Vol] 13 mg/dL 9 - 24 mg/dL [facility] Comprehensive metabolic 2000 panelon 12-15-2023 Albumin [Mass/Vol] 4.7 g/dL Normal 3.9-4.9 [facility] Comment on above: Order Comment: Speci men Type: BLOOD SPECIMENOrdering Facility: [facility] Address: [address] [place] [address] Performed By: #### 2 4323-8 ####[facility] LABCLIA [id number] [place] [address] ALP [Catalytic activity/Vol] 62 U/L Normal 38-113 [facility] Comment on above: Order Comment: Speci men Type: BLOOD SPECIMENOrdering Facility: [facility] Address: [address] [place] [address] Performed By: #### 2 4323-8 ####[facility] LABCLIA [id number] [place] [address] ALT [Catalytic activity/Vol] 7 U/L Low 10-54 [facility] Comment on above: Order Comment: Speci men Type: BLOOD SPECIMENOrdering Facility: [facility] Address: [address] [place] [id number] Performed By: #### 2 4323-8 ####[facility] LABCLIA [id number] [place] [address] Anion gap [Moles/Vol] 9 mmol/L Normal 8-15 [facility] Comment on above: Order Comment: Speci men Type: BLOOD SPECIMENOrdering Facility: [facility] Address: [address] [place] [address] Performed By: #### 2 4323-8 ####[facility] LABCLIA [id number] [place] [address] AST [Catalytic activity/Vol] 19 U/L Normal 14-40 [facility] Comment on above: Order Comment: Speci men Type: BLOOD SPECIMENOrdering Facility: [facility] Address: [address] [place] [address] Performed By: #### 2 4323-8 ####[facility] LABCLIA [id number] [place] [address] Bilirubin [Mass/Vol] 1.0 mg/dL Normal 0.2-1.3 [facility] Comment on above: Order Comment: Speci men Type: BLOOD SPECIMENOrdering Facility: [facility] Address: [address] [place] [address] Performed By: #### 2 4323-8 ####[facility] LABCLIA [id number] [place] [address] Calcium [Mass/Vol] 10.3 mg/dL High 8.5-10.2 [facility] Comment on above: Order Comment: Speci men Type: BLOOD SPECIMENOrdering Facility: [facility] Address: [address] [place] [address] Performed By: #### 2 4323-8 ####[facility] LABCLIA [id number] [place] [address] Chloride [Moles/Vol] 105 mmol/L Normal 98-107 [facility] Comment on above: Order Comment: Speci men Type: BLOOD SPECIMENOrdering Facility: [facility] Address: [address] [place] [address] Performed By: #### 2 4323-8 ####[facility] LABCLIA [id number] [place] [address] CO2 [Moles/Vol] 24 mmol/L Normal 22-30 [facility] Comment on above: Order Comment: Speci men Type: BLOOD SPECIMENOrdering Facility: [facility] Address: [address] [place] [address] Performed By: #### 2 4323-8 ####[facility] LABCLIA [id number] [place] [address] Creatinine [Mass/Vol] 0.81 mg/dL Normal 0.73-1.22 [facility] Comment on above: Order Comment: Speci men Type: BLOOD SPECIMENOrdering Facility: [facility] Address: [address] [place] [address] Performed By: #### 2 4323-8 ####[facility] LABCLIA [id number] [place] [address] Creatinine and Glomerular filtration rate.predicted panel (S/P/Bld) 99 mL/min/1.73m??? Normal >=60 [facility] Comment on above: Order Comment: Speci men Type: BLOOD SPECIMENOrdering Facility: [facility] Address: [address] [place] [address] Result Comment: Trinity mated Glomerular Filtration Rate [...] actual GFR. Performed By: #### 2 4323-8 ####[facility] LABCLIA [id number] [place] [address] Glucose [Mass/Vol] 104 mg/dL High 74-99 [facility] Comment on above: Order Comment: Speci men Type: BLOOD SPECIMENOrdering Facility: [facility] Address: [address] [place], [place] [address] Result Comment: The [place] Diabetes Association (ADA) provides guidance for cutoff [...] Standards of Medical Care in Diabetes 2016, [place] Diabetes Association. Diabetes Care. 2016.39(Suppl 1). Performed By: #### 2 4323-8 ####[facility] LABCLIA [id number] [place] [address] Potassium [Moles/Vol] 4.4 mmol/L Normal 3.7-5.1 [facility] Comment on above: Order Comment: Speci men Type: BLOOD SPECIMENOrdering Facility: [facility] Address: [address] [place], [place] [address] Performed By: #### 2 4323-8 ####[facility] LABCLIA [id number] [place] [address] Protein [Mass/Vol] 7.5 g/dL Normal 6.3-8.0 [facility] Comment on above: Order Comment: Speci men Type: BLOOD SPECIMENOrdering Facility: [facility] Address: [address] [place] [address] Performed By: #### 2 4323-8 ####[facility] LABCLIA [id number] [place] [address] Sodium [Moles/Vol] 138 mmol/L Normal 136-144 [facility] Comment on above: Order Comment: Speci men Type: BLOOD SPECIMENOrdering Facility: [facility] Address: [address] [place] [address] Performed By: #### 2 4323-8 ####[facility] LABCLIA [id number] [place] [address] Urea nitrogen [Mass/Vol] 13 mg/dL Normal 9-24 [facility] Comment on above: Order Comment: Speci men Type: BLOOD SPECIMENOrdering Facility: [facility] Address: [address] [place] [address] Performed By: #### 2 4323-8 ####[facility] LABCLIA [id number] [place] [address] GLUCOSE, BLOOD (POC)on 12-14 Glucose [Mass/Vol] 111 mg/dL Abnormal 74 - 99 mg/dL [facility] Comment on above: Location:[facility], [address] [place] [address] Dr. [place], [place], [address] The Accu-Chek Inform II glucose meter has [...] Interpretation and review of laboratory results Abnormal [facility] NM PET/CT SKULL-THIGH SUBQon 12-15-2023 NM [...] * Radiopharmaceutical Activity: 6.8 mCi * Radiopharmaceutical: Q34-Gwbfsdpadjvovyrxyv (FDG) * All reported standardized uptake values represent maximum SUV (SUVmax) per body weight, unless otherwise specified. COMPARISON: 02/11/2023 CORRELATION: CT neck and chest 09/10/2022 RESULT: REFERENCES: SUV reference values: * Blood pool (descending aorta) activity: SUVmax 2.1 * Background liver activity: SUVmax 2.7 [employer] Supervisor (topogram) images: No additional findings. Notes and [...] any questions regarding this interpretation, please call [phone]. If you are unable to reach us at the number above, please feel free to contact [facility] eRadiology at [phone]. [id number] Normal [facility] PET+CT Guidance for localiza tion of tumor of Skull base to mid-thigh-- W 18F-FDG Joanna 12-15-2023 Radiology Study observation (narrative) [facility] THYROID STIMULATING HORMONEo n 12-15-2023 TSH Qn 4.700 m[IU]/L High [facility] TSH Qnon 12-15-2023 Interpretation and review of laboratory results Abnormal [facility] TSH SerPl-aCncon 12-15-2023 TSH Qn 4.700 m[IU]/L High 0.270-4.20 0 [facility] Comment on above: Order Comment: Speci men Type: BLOOD SPECIMENOrdering Facility: [facility] Address: [address] [place] [address] Performed By: #### 3 016-3 ####[facility] LABCLIA [id number] [place] [address] [place] ECG 12 Leadon 11-17-2023 ECG revealed normal sinus rhythm with PACs [facility] Work Phone: Office Visiton 10-14-2023 Follow-up visit [id number] Kyle Floyd 1960 M Date Provider Department Center 10/14/2023 VALE MIGUEL HVCVASENDO [facility] No family history on file Level of Service:49113 [place] OFFICE/OUTPATIENT NEW MODERATE MDM 45 MINUTES Reason for Visit and Comments: New Patient [632] - Carotid stenosis, Ref Gildardo Lacy, U/S available done in [place] 07/01, brittany Normal [facility] Cholesterol [Mass/volume] in Serum or PlasmaOrdered By: Carmen Neely on 09-08-2023 Cholesterol [Mass/Vol] 116 mg/dL Low 140-200 [facility] Comment on above: Chol less than 200 m g/dl low riskChol 201-239 mg/dl borderline riskChol 240 mg/dl and greater high risk Result Comment: Chol less than 200 mg/dl low risk Chol 201-239 mg/dl borderline risk Chol 240 mg/dl and greater high risk Performed By: #### L IPID #### [facility] [address] Cholesterol in LDL Calc [Mas s/Vol]Ordered By: Carmen Neely on 09-08-2023 Cholesterol in LDL [Mass/Vol] 48 mg/dL 0-100 [facility] Comment on above: LDL ATP III CLASSIFI CATIONLDL less than 100 mg/dL OptimalLDL 100-129 mg/dL Near or above optimalLDL 130-159 mg/dL Borderline highLDL 160-189 mg/dL HighLDL greater than 189 mg/dL Very high Cholesterol in VLDL Calc [Ma ss/Vol]Ordered By: Carmen Neely on 09-08-2023 Cholesterol in VLDL [Mass/Vol] 16 mg/dL [facility] Lipid Panelon 09-08-2023 LDL Cholesterol,Calculat ed 48 mg/dL Normal 0-100 [facility] Comment on above: Result Comment: LDL ATP III CLASSIFICATION LDL less than 100 mg/dL Optimal LDL 100-129 mg/dL Near or above optimal LDL 130-159 mg/dL Borderline high LDL 160-189 mg/dL High LDL greater than 189 mg/dL Very high Performed By: #### L IPID #### [facility] [address] Triglyceride w/Reflex 84 mg/dL Normal 0-149 [facility] Comment on above: Result Comment: TRIG ATP III CLASSIFICATION TRIG less than 150 mg/dL Normal TRIG 150-199 mg/dL Borderline high TRIG 200-500 mg/dL High TRIG greater than 500 mg/dL Very high Standard traceable to the Center for Disease Conrtrol and Prevention (CDC) test method. Performed By: #### L IPID #### [facility] [address] VLDL CHOLESTEROL 16 mg/dL Normal [facility] Comment on above: Performed By: #### L IPID #### [facility] [address] Serum or plasma high density lipoprotein (HDL) cholesterol measurementOrdered By: Carmen Neely on 09-08-2023 Cholesterol in HDL [Mass/Vol] 51 mg/dL Normal 23-92 [facility] Comment on above: HDL CHOL ATP-III CLA SSIFICATION Cardiovascular RiskHDL > or equal to 60 mg/dL LOWHDL < 40 mg/dL HIGH Result Comment: HDL CHOL ATP-III CLASSIFICATION Cardiovascular Risk HDL > or equal to 60 mg/dL LOW HDL < 40 mg/dL HIGH Performed By: #### L IPID #### [facility] [address] [place] [address] Serum or plasma total choles terol/high density lipoprotein (HDL) cholesterol mass ratOrdered By: Carmen Neely on 09-08-2023 Cholesterol.total/Ch olesterol in HDL [Mass ratio] 2.3 {ratio} Normal <5.0 [facility] Comment on above: Result Comment: PERF ORMED BY: [place] [address] PATHOLOGIST SHINE WORKER HECTOR MARTIN M.D. Performed By: #### L IPID #### [facility] [address] [place] [address] Triglyceride [Mass/volume] i n Serum or PlasmaOrdered By: Carmen Neely on 09-08-2023 Triglyceride [Mass/Vol] 84 mg/dL 0-149 [facility] Comment on above: TRIG ATP III CLASSIF ICATIONTRIG less than 150 mg/dL NormalTRIG 150-199 mg/dL Borderline highTRIG 200-500 mg/dL High TRIG greater than 500 mg/dL Very highStandard traceable to the Center for Disease Conrtrol and Prevention (CDC) test method. THYROID STIMULATING HORMONEo n 08-19-2023 TSH Qn 1.730 m[IU]/L 0.270 - 4.200 mIU/L [facility] Basic metabolic 2000 panelon 08-18-2023 Anion gap [Moles/Vol] 10 mmol/L 9 - 18 mmol/L [facility] Calcium [Mass/Vol] 10.2 mg/dL 8.5 - 10. 2 mg/dL [facility] Chloride [Moles/Vol] 102 mmol/L 97 - 10 5 mmol/L [facility] CO2 [Moles/Vol] 25 mmol/L 22 - 30 mmol/L [facility] Creatinine [Mass/Vol] 1.20 mg/dL 0.73 - 1.22 mg/dL [facility] Estimated Glomerular Filtration Rate 68 mL/min/1.73m >=60 mL/min/1.7 3m [facility] Glucose [Mass/Vol] 101 mg/dL High 74 - 99 mg/dL [facility] Potassium [Moles/Vol] 3.7 mmol/L 3.7 - 5.1 mmol/L [facility] Sodium [Moles/Vol] 137 mmol/L 136 - 144 mmol/L [facility] Urea nitrogen [Mass/Vol] 16 mg/dL 9 - 24 mg/dL [facility] Anion gap [Moles/Vol] 10 mmol/L Normal 9-18 [facility] Comment on above: Order Comment: Speci men Type: BLOOD SPECIMENOrdering Facility: [facility] Address: [address] [place] [address] Performed By: #### 2 4321-2 ####[facility] LABCLIA [id number] [place] [address] Calcium [Mass/Vol] 10.2 mg/dL Normal 8.5-10.2 [facility] Comment on above: Order Comment: Speci men Type: BLOOD SPECIMENOrdering Facility: [facility] Address: [address] [place] [address] Performed By: #### 2 4321-2 ####[facility] LABCLIA [id number] [place] [address] Chloride [Moles/Vol] 102 mmol/L Normal 97-105 [facility] Comment on above: Order Comment: Speci men Type: BLOOD SPECIMENOrdering Facility: [facility] Address: [address] [place] [address] Performed By: #### 2 4321-2 ####[facility] LABCLIA [id number] [place] [address] CO2 [Moles/Vol] 25 mmol/L Normal 22-30 [facility] Comment on above: Order Comment: Speci men Type: BLOOD SPECIMENOrdering Facility: [facility] Address: [address] [place] [address] Performed By: #### 2 4321-2 ####[facility] LABCLIA [id number] [place] [address] Creatinine [Mass/Vol] 1.20 mg/dL Normal 0.73-1.22 [facility] Comment on above: Order Comment: Speci men Type: BLOOD SPECIMENOrdering Facility: [facility] Address: [address] [place] [address] Performed By: #### 2 4321-2 ####[facility] LABCLIA [id number] [place] [address] Creatinine and Glomerular filtration rate.predicted panel (S/P/Bld) 68 mL/min/1.73m??? Normal >=60 [facility] Comment on above: Order Comment: Speci men Type: BLOOD SPECIMENOrdering Facility: [facility] Address: [address] [place] [address] Result Comment: Trinity mated Glomerular Filtration Rate [...] actual GFR. Performed By: #### 2 4321-2 ####[facility] LABCLIA [id number] [place] [address] Glucose [Mass/Vol] 101 mg/dL High 74-99 [facility] Comment on above: Order Comment: Speci men Type: BLOOD SPECIMENOrdering Facility: [facility] Address: [address] [place] [address] Result Comment: The [place] Diabetes Association (ADA) provides guidance for cutoff [...] Standards of Medical Care in Diabetes 2016, [place] Diabetes Association. Diabetes Care. 2016.39(Suppl 1). Performed By: #### 2 4321-2 ####[facility] LABCLIA [id number] [place] [address] Potassium [Moles/Vol] 3.7 mmol/L Normal 3.7-5.1 [facility] Comment on above: Order Comment: Speci men Type: BLOOD SPECIMENOrdering Facility: [facility] Address: [address] [place] [address] Performed By: #### 2 4321-2 ####[facility] LABCLIA [id number] [place] [address] Sodium [Moles/Vol] 137 mmol/L Normal 136-144 [facility] Comment on above: Order Comment: Speci men Type: BLOOD SPECIMENOrdering Facility: [facility] Address: [address] [place], [place] [address] Performed By: #### 2 4321-2 ####[facility] LABCLIA [id number] [place] [address] Urea nitrogen [Mass/Vol] 16 mg/dL Normal 9-24 [facility] Comment on above: Order Comment: Speci men Type: BLOOD SPECIMENOrdering Facility: [facility] Address: [address] [place] [address] Performed By: #### 2 4321-2 ####[facility] LABCLIA [id number] [place] [address] CBC W Auto Differential pane l (Bld)on 08-18-2023 Basophils (Bld) [#/Vol] 0.03 10*3/uL <0.11 k/uL [facility] Basophils/100 WBC (Bld) 0.4 % [facility] Differential cell count method Nom (Bld) Auto [facility] Eosinophils (Bld) [#/Vol] 0.03 10*3/uL <0.46 k/uL [facility] Eosinophils/100 WBC (Bld) 0.4 % [facility] Erythrocyte distribution width (RBC) [Ratio] 13.3 % 11.5 - 15.0 % [facility] Hematocrit (Bld) [Volume fraction] 43.2 % 39.0 - 51.0 % [facility] Hemoglobin (Bld) [Mass/Vol] 14.3 g/dL 13.0 - 17.0 g/dL [facility] Immature granulocytes (Bld) [#/Vol] 0.03 10*3/uL <0.10 k/uL [facility] Immature granulocytes/100 WBC (Bld) 0.4 % [facility] Lymphocytes (Bld) [#/Vol] 1.63 10*3/uL 1.00 - 4.00 k/uL [facility] Lymphocytes/100 WBC (Bld) 20.2 % [facility] MCH (RBC) [Entitic mass] 34.0 pg 26.0 - 34.0 pg [facility] MCHC (RBC) [Mass/Vol] 33.1 g/dL 30.5 - 36.0 g/dL [facility] MCV (RBC) [Entitic vol] 102.6 fL High 80.0 - 100.0 fL [facility] Monocytes (Bld) [#/Vol] 0.78 10*3/uL <0.87 k/uL [facility] Monocytes/100 WBC (Bld) 9.7 % [facility] Neutrophils (Bld) [#/Vol] 5.55 10*3/uL 1.45 - 7.50 k/uL [facility] Neutrophils/100 WBC (Bld) 68.9 % [facility] Nucleated RBC (Bld) [#/Vol] <0.01 k/uL [facility] Nucleated RBC/100 WBC (Bld) [Ratio] 0.0 /100 WBC [facility] Platelet mean volume (Bld) [Entitic vol] 9.4 fL 9.0 - 12.7 fL [facility] Platelets (Bld) [#/Vol] 226 10*3/uL 150 - 400 k/uL [facility] RBC (Bld) [#/Vol] 4.21 10*6/uL 4.20 - 6.00 m/uL [facility] WBC (Bld) [#/Vol] 8.05 10*3/uL 3.70 - 11.00 k/uL [facility] Basophils (Bld) [#/Vol] 0.03 10*3/uL Normal <0.11 [facility] Comment on above: Order Comment: Speci men Type: BLOOD SPECIMENOrdering Facility: [facility] Address: [address] [place] [address] Performed By: #### 5 7021-8 ####[facility] LABCLIA [id number] [place] [address] Basophils/100 WBC (Bld) 0.4 % Normal [facility] Comment on above: Order Comment: Speci men Type: BLOOD SPECIMENOrdering Facility: [facility] Address: [address] [place] [address] Performed By: #### 5 7021-8 ####[facility] LABCLIA [id number] [place] [address] Differential cell count method Nom (Bld) Auto Normal [facility] Comment on above: Order Comment: Speci men Type: BLOOD SPECIMENOrdering Facility: [facility] Address: [address] [place] [address] Performed By: #### 5 7021-8 ####[facility] LABCLIA [id number] [place] [address] Eosinophils (Bld) [#/Vol] 0.03 10*3/uL Normal <0.46 [facility] Comment on above: Order Comment: Speci men Type: BLOOD SPECIMENOrdering Facility: [facility] Address: [address] [place] [address] Performed By: #### 5 7021-8 ####[facility] LABCLIA [id number] [place] [address] Eosinophils/100 WBC (Bld) 0.4 % Normal [facility] Comment on above: Order Comment: Speci men Type: BLOOD SPECIMENOrdering Facility: [facility] Address: [address] [place] [address] Performed By: #### 5 7021-8 ####[facility] LABCLIA [id number] [place] [address] Erythrocyte distribution width (RBC) [Ratio] 13.3 % Normal 11.5-15.0 [facility] Comment on above: Order Comment: Speci men Type: BLOOD SPECIMENOrdering Facility: [facility] Address: [address] [place] [address] Performed By: #### 5 7021-8 ####[facility] LABCLIA [id number] [place] [address] Hematocrit (Bld) [Volume fraction] 43.2 % Normal 39.0-51.0 [facility] Comment on above: Order Comment: Speci men Type: BLOOD SPECIMENOrdering Facility: [facility] Address: [address] [place] [address] Performed By: #### 5 7021-8 ####[facility] LABCLIA [id number] [place] [address] Hemoglobin (Bld) [Mass/Vol] 14.3 g/dL Normal 13.0-17.0 [facility] Comment on above: Order Comment: Speci men Type: BLOOD SPECIMENOrdering Facility: [facility] Address: [address] [place] [address] Performed By: #### 5 7021-8 ####[facility] LABCLIA [id number] [place] [address] Immature granulocytes (Bld) [#/Vol] 0.03 10*3/uL Normal <0.10 [facility] Comment on above: Order Comment: Speci men Type: BLOOD SPECIMENOrdering Facility: [facility] Address: [address] [place] [address] Performed By: #### 5 7021-8 ####[facility] LABCLIA [id number] [place] [address] Immature granulocytes/100 WBC (Bld) 0.4 % Normal [facility] Comment on above: Order Comment: Speci men Type: BLOOD SPECIMENOrdering Facility: [facility] Address: [address] [place] [address] Performed By: #### 5 7021-8 ####[facility] LABCLIA [id number] [place] [address] Lymphocytes (Bld) [#/Vol] 1.63 10*3/uL Normal 1.00-4.00 [facility] Comment on above: Order Comment: Speci men Type: BLOOD SPECIMENOrdering Facility: [facility] Address: [address] [place] [address] Performed By: #### 5 7021-8 ####[facility] LABCLIA [id number] [place] [address] Lymphocytes/100 WBC (Bld) 20.2 % Normal [facility] Comment on above: Order Comment: Speci men Type: BLOOD SPECIMENOrdering Facility: [facility] Address: [address] [place] [address] Performed By: #### 5 7021-8 ####[facility] LABCLIA [id number] [place] [address] MCH (RBC) [Entitic mass] 34.0 pg Normal 26.0-34.0 [facility] Comment on above: Order Comment: Speci men Type: BLOOD SPECIMENOrdering Facility: [facility] Address: [address] [place] [address] Performed By: #### 5 7021-8 ####[facility] LABIA [id number] [place] [address] MCHC (RBC) [Mass/Vol] 33.1 g/dL Normal 30.5-36.0 [facility] Comment on above: Order Comment: Speci men Type: BLOOD SPECIMENOrdering Facility: [facility] Address: [address] [place] [address] Performed By: #### 5 7021-8 ####[facility] LABIA [id number] [place] [address] MCV (RBC) [Entitic vol] 102.6 fL High 80.0-100.0 [facility] Comment on above: Order Comment: Speci men Type: BLOOD SPECIMENOrdering Facility: [facility] Address: [address] [place] [address] Performed By: #### 5 7021-8 ####[facility] LABIA [id number] [place] [address] Monocytes (Bld) [#/Vol] 0.78 10*3/uL Normal <0.87 [facility] Comment on above: Order Comment: Speci men Type: BLOOD SPECIMENOrdering Facility: [facility] Address: [address] [place] [address] Performed By: #### 5 7021-8 ####[facility] LABIA [id number] [place] [address] Monocytes/100 WBC (Bld) 9.7 % Normal [facility] Comment on above: Order Comment: Speci men Type: BLOOD SPECIMENOrdering Facility: [facility] Address: [address] [place] [address] Performed By: #### 5 7021-8 ####[facility] LABCLIA [id number] [place] [address] Neutrophils (Bld) [#/Vol] 5.55 10*3/uL Normal 1.45-7.50 [facility] Comment on above: Order Comment: Speci men Type: BLOOD SPECIMENOrdering Facility: [facility] Address: [address] [place] [address] Performed By: #### 5 7021-8 ####[facility] LABCLIA [id number] [place] [address] Neutrophils/100 WBC (Bld) 68.9 % Normal [facility] Comment on above: Order Comment: Speci men Type: BLOOD SPECIMENOrdering Facility: [facility] Address: [address] [place] [address] Performed By: #### 5 7021-8 ####[facility] LABCLIA [id number] [place] [address] Nucleated RBC (Bld) [#/Vol] 10*3/uL Normal <0.01 [facility] Comment on above: Order Comment: Speci men Type: BLOOD SPECIMENOrdering Facility: [facility] Address: [address] [place] [address] Performed By: #### 5 7021-8 ####[facility] LABCLIA [id number] [place] [address] Nucleated RBC/100 WBC (Bld) [Ratio] 0.0 /100 WBC Normal [facility] Comment on above: Order Comment: Speci men Type: BLOOD SPECIMENOrdering Facility: [facility] Address: [address] [place] [address] Performed By: #### 5 7021-8 ####[facility] LABCLIA [id number] [place] [address] Platelet mean volume (Bld) [Entitic vol] 9.4 fL Normal 9.0-12.7 [facility] Comment on above: Order Comment: Speci men Type: BLOOD SPECIMENOrdering Facility: [facility] Address: [address] [place] [address] Performed By: #### 5 7021-8 ####[facility] LABIA [id number] [place] [address] Platelets (Bld) [#/Vol] 226 10*3/uL Normal 150-400 [facility] [facility] Comment on above: Order Comment: Speci men Type: BLOOD SPECIMENOrdering Facility: [facility] Address: [address] [place] [address] Performed By: #### 5 7021-8 ####[facility] LABIA [id number] [place] [address] RBC (Bld) [#/Vol] 4.21 10*6/uL Normal 4.20-6.00 [facility] Comment on above: Order Comment: Speci men Type: BLOOD SPECIMENOrdering Facility: [facility] Address: [address] [place] [address] Performed By: #### 5 7021-8 ####[facility] LABIA [id number] [place] [address] WBC (Bld) [#/Vol] 8.05 10*3/uL Normal 3.70-11.00 [facility] Comment on above: Order Comment: Speci men Type: BLOOD SPECIMENOrdering Facility: [facility] Address: [address] [place] [address] Performed By: #### 5 7021-8 ####[facility] LABIA [id number] [place] [address] AARONOVon 08-18-2023 CNOV Office Visit (RADTSA ) ALEJO FLOYD ([id number]) 1960 M Date Time Provider Department 08/18/23 2:00 PM Kathrine CARPENTER During your visit today, we recorded the following information about you: Temperature Pulse Blood pressure Weight 98.5 degrees 104/minute 147/83 67.7 kg Kathrine Carpenter MD 08/25/2023 4:24 PM Signed Radiation Oncology - Follow Up Note DIAGNOSIS: Squamous cell carcinoma oropharynx, 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 Normal [facility] CNOVSPon 08-18-2023 CNOVSP Visit (SP) Office (H EMASA) ALEJO FLOYD ([id number]) 1960 M Date Time Provider Department 08/18/23 [...] exam E (more content not included)... Normal [facility] TSH SerPl-aCncon 08-18-2023 TSH Qn 1.730 m[IU]/L Normal 0.270-4.20 0 [facility] Comment on above: Order Comment: Speci men Type: BLOOD SPECIMENOrdering Facility: [facility] Address: [address] [place] [place] [address] Performed By: #### 3 016-3 ####[facility] LABCLIA [id number] [address] [id number] [address] [place] PET+CT Guidance for [...] any questions regarding this interpretation, please call [phone]. If you are unable to reach us at the number above, please feel free to contact [facility] eRadiology at [phone]. DIVISION OF RADIOLOGY * * *Final Report* [...] SKELETON: There are no hypermetabolic osseous lesions. Fireworks Assembly Supervisor (topogram) images:No additional findings. DIVISION OF RADIOLOGY Provider, [facility] - 02/12/2023 * * *Final Report* [...] SKELETON: There are no hypermetabolic osseous lesions. Fireworks Assembly Supervisor (topogram) images:No additional findings. IMPRESSION IMPRESSION: 1. [...] any questions regarding this interpretation, please call [phone]. If you are unable to reach us at the number above, please feel free to contact [facility] eRadiology at [phone]. [facility] PET+CT Guidance for localiza tion of tumor of Skull base to mid-thigh-- W 18F-FDG IVOrdered By: Ccf Provider on 02-12-2023 [facility] GLUCOSE, BLOOD (POC)on 02-11 Glucose [Mass/Vol] 108 mg/dL Abnormal 74 - 99 mg/dL [facility] Comment on above: Location:[facility], [address] [place] [address] , [place], [place], [address] The Accu-Chek Inform II glucose meter has [...] Interpretation and review of laboratory results Abnormal [facility] PET+CT Guidance for localiza tion of tumor of Skull base to mid-thigh-- W 18F-FDG Joanna 02-11-2023 Radiology Study observation (narrative) [facility] CT Chest W contrast Joanna IMPRESSION: 1. [...] any questions regarding this interpretation, please call [phone]. If you are unable to reach us at the number above, please feel free to contact [facility] eRadiology at [phone]. DIVISION OF RADIOLOGY * * *Final Report* * * DATE OF EXAM: Sep 10 2022 8:42AM [facility] 0539 - CT CHEST W IVCON [...] fossa. Epigastric ventral abdominal wall hernia, stable. Fireworks Assembly Supervisor (topogram) images: No additional findings. DIVISION OF RADIOLOGY Provider, [facility] - 09/11/2022 * * *Final Report* * * DATE OF EXAM: Sep 10 2022 8:42AM [facility] 0539 - CT CHEST W IVCON [...] fossa. Epigastric ventral abdominal wall hernia, stable. Fireworks Assembly Supervisor (topogram) images: No additional findings. IMPRESSION IMPRESSION: [...] any questions regarding this interpretation, please call [phone]. If you are unable to reach us at the number above, please feel free to contact [facility] eRadiology at [phone]. [facility] CT Neck WO contraston 2022 * * *Final Report* * * DATE OF EXAM: Sep 10 2022 8:36AM [facility] 0509 - CT NECK SOFT TISSUE [...] any questions regarding this interpretation, please call [phone]. If you are unable to reach us at the number above, please feel free to contact [facility] eRadiology at [phone]. DIVISION OF RADIOLOGY Provider, Doe Penn - 09/10/2022 * * *Final Report* * * DATE OF EXAM: Sep 10 2022 8:36AM [facility] 0509 - CT NECK SOFT TISSUE [...] any questions regarding this interpretation, please call [phone]. If you are unable to reach us at the number above, please feel free to contact [facility] eRadiology at [phone]. [facility] CT Neck WO contrastOrdered B y: Ccf Provider on 09-10-2022 [facility] No Panel Informationon 09-10 Radiology Study observation (narrative) [facility] CBC AUTO DIFFon 08-30-2022 BASO # 0.0 103/ul Normal 0.0-0.1 [facility] Comment on above: Performed By: #### C BC #### [facility] [address] [place] [address] Dr. Herb Jones Basophils/100 WBC (Bld) 0.4 % Normal 0.2-2.0 [facility] Comment on above: Performed By: #### C BC #### [facility] [address] [place] [address] Dr. Herb Jones EO # 0.2 103/ul Normal 0.0-0.7 [facility] Comment on above: Performed By: #### C BC #### [facility] [address] [place] [address] Dr. Herb Jones Eosinophils/100 WBC (Bld) 1.6 % Normal 0.9-7.0 [facility] Comment on above: Performed By: #### C BC #### [facility] [address] [place] [address] Dr. Herb Jones Erythrocyte distribution width (RBC) [Ratio] 16.3 % Critically high 11.0-15.0 [facility] Comment on above: Performed By: #### C BC #### [facility] [address] [place] [address] Dr. Herb Jones Hematocrit (Bld) [Volume fraction] 37.3 % Critically low 42.0-54.0 [facility] Comment on above: Performed By: #### C BC #### [facility] [address] [place] [address] Dr. Herb Jones Hemoglobin (Bld) [Mass/Vol] 12.5 g/dL Critically low 14.0-18.0 [facility] Comment on above: Performed By: #### C BC #### [facility] [address] [place] [address] Dr. Herb Jones IG # 0.03 10e3/ul Normal 0.00-0.03 [facility] Comment on above: Performed By: #### C BC #### [facility] [address] [place] [address] Dr. Herb Jones IG % 0.3 % Normal 0.0-0.5 [facility] Comment on above: Performed By: #### C BC #### [facility] [address] [place] [address] Dr. Herb Jones LYMPH # 1.0 103/ul Critically low 1.2-3.8 [facility] Comment on above: Performed By: #### C BC #### [facility] [address] [place] [address] Dr. Herb Jones Lymphocytes/100 WBC (Bld) 9.6 % Critically low 20.5-60.0 [facility] Comment on above: Performed By: #### C BC #### [facility] [address] [place] [address] Dr. Herb Jones MANUAL DIFF REQ NO Normal [facility] Comment on above: Performed By: #### C BC #### [facility] [address] [place] [address] Dr. Herb Jones MCH (RBC) [Entitic mass] 31.9 pg Normal 25.9-34.0 [facility] Comment on above: Performed By: #### C BC #### [facility] [address] [place] [address] Dr. Herb Jones MCHC (RBC) [Mass/Vol] 33.5 g/dL Normal 29.9-35.2 [facility] Comment on above: Performed By: #### C BC #### [facility] [address] [place] [address] Dr. Herb Jones MCV (RBC) [Entitic vol] 95.2 fL Critically high 80.0-94.0 [facility] Comment on above: Performed By: #### C BC #### [facility] [address] [place] [address] Dr. Herb Jones MONO # 1.1 103/ul Critically high 0.3-0.8 [facility] Comment on above: Performed By: #### C BC #### [facility] [address] [place] [address] Dr. Herb Jones Monocytes/100 WBC (Bld) 10.6 % Normal 1.7-12.0 [facility] Comment on above: Performed By: #### C BC #### [facility] [address] [place] [address] Dr. Herb Jones NEUT # 8.0 103/ul Critically high 1.4-6.5 [facility] Comment on above: Performed By: #### C BC #### [facility] [address] [place] [address] Dr. Herb Jones Neutrophils/100 WBC (Bld) 77.5 % Critically high 43.0-75.0 [facility] Comment on above: Performed By: #### C BC #### [facility] [address] [place] [address] Dr. Herb Jones Platelet mean volume (Bld) [Entitic vol] 8.8 fL Critically low 9.5-13.5 [facility] Comment on above: Performed By: #### C BC #### [facility] [address] [place] [address] Dr. Herb Jones PLT 326 103/ul Normal 150-450 [facility] Comment on above: Performed By: #### C BC #### [facility] [address] [place] [address] Dr. Herb Jones RBC 3.92 106/ul Critically low 4.70-6.10 [facility] Comment on above: Performed By: #### C BC #### [facility] [address] [place] [address] Dr. Herb Jones WBC 10.3 103/ul Normal 4.0-11.0 [facility] Comment on above: Performed By: #### C BC #### [facility] [address] [place] [address] Dr. Herb Jones [facility] SARS-CoV-2 (COVID-19) RNA BLANCA+probe Ql (Unsp spec) Not detected Normal NOT DETECTED [facility] Comment on above: Result Comment: This test is not yet approved or cleared by the [place] FDA. When there are no FDA-approved or cleared tests available, and other criteria are met, FDA can make tests available under an emergency access mechanism called an Emergency Use Authorization (EUA). The EUA for this test is supported by the Sql Programmer Analyst of Health and Human Service's (HHS's) declaration [...] with SARS-CoV-2. Performed By: #### C VDTBH ####[facility] [address] [place], [place] [address]Dr. [facility] GROUP A STREP CULTUREon 08-03 S. pyogenes Ag Ql (Unsp spec) Culture Observations: NEGATIVE FOR GROUP A STREPTOCOCCUS. Normal [facility] Comment on above: Performed By: #### S SCRN, GRASTCX ####[facility] [address] [place], [place] [address]Dr. [facility] INFLUENZA A AND B AGon 08-30 INFLUANEGH SEE BELOW Normal [facility] Comment on above: Result Comment: Nega tive for Flu A protein angiten. Infection due to Flu A cannot be ruled out. Flu A angiten in the sample may be below the detection limit of the test. Performed By: #### I NFLUAB ####[facility] [address] [place], [place] [address]Dr. [facility] INFLUBNEGH SEE BELOW Normal [facility] Comment on above: Result Comment: Nega tive for Flu B protein antigen. Infection due to Flu B cannot be ruled out. Flu B antigen in the sample may be below the detection limit of the test. Performed By: #### I NFLUAB ####[facility] [address] [place], [place] [address]Dr. [facility] INFLUENZA A AG Negative Normal NEGATIVE SEE COMMENT [facility] Comment on above: Performed By: #### I NFLUAB ####[facility] [address] [place], [place] [address]Dr. [facility] INFLUENZA B AG Negative Normal NEGATIVE SEE COMMENT [facility] Comment on above: Performed By: #### I NFLUAB ####[facility] [address] [place], [place] [address]NjDr. Herb Jones PROF 14(COMP METB)on 023 Albumin [Mass/Vol] 3.2 g/dL Critically low 3.4-5.0 [facility] Comment on above: Performed By: #### C MP #### [facility] [address] [address] [address] Herb Jones Albumin/Globulin [Mass ratio] 0.8 {ratio} Normal [facility] Comment on above: Performed By: #### C MP #### [facility] [address] [address] [address] Herb Jones ALP [Catalytic activity/Vol] 148 U/L Critically high 46-116 [facility] Comment on above: Performed By: #### C MP #### [facility] [address] [address] [address] Herb Jones ALT [Catalytic activity/Vol] 23 U/L Normal 16-63 [facility] Comment on above: Performed By: #### C MP #### [facility] [address] [address] [address] Herb Jones Anion gap [Moles/Vol] 13.9 mmol/L Normal [facility] Comment on above: Performed By: #### C MP #### [facility] [address] [address] [address] Herb Jones AST [Catalytic activity/Vol] 22 U/L Normal 15-37 [facility] Comment on above: Performed By: #### C MP #### [facility] [address] [address] [address] Herb Jones Bilirubin [Mass/Vol] 0.6 mg/dL Normal 0.2-1.0 [facility] Comment on above: Performed By: #### C MP #### [facility] [address] [address] [address] Herb Jones Calcium [Mass/Vol] 9.0 mg/dL Normal 8.5-10.1 [facility] Comment on above: Performed By: #### C MP #### [facility] [address] [place] [address] Dr. Herb Jones Chloride [Moles/Vol] 101 mmol/L Normal 98-107 [facility] Comment on above: Performed By: #### C MP #### [facility] [address] [place] [address] Dr. Herb Jones CO2 [Moles/Vol] 21.9 mmol/L Normal 21.0-32.0 [facility] Comment on above: Performed By: #### C MP #### [facility] [address] [place] [address] Dr. Herb Jones Creatinine [Mass/Vol] 0.97 mg/dL Normal 0.70-1.30 [facility] Comment on above: Performed By: #### C MP #### [facility] [address] [place] [address] Dr. Herb Jones EGFR-AF FILIPINO >60 Normal >=60 [facility] Comment on above: Performed By: #### C MP #### [facility] [address] [place] [address] Dr. Herb Jones EGFR-NON AF FILIPINO >60 Normal >=60 [facility] Comment on above: Performed By: #### C MP #### [facility] [address] [place] [address] Dr. Herb Jones Globulin (S) [Mass/Vol] 4.2 g/dL Normal [facility] Comment on above: Performed By: #### C MP #### [facility] [address] [place] [address] Dr. Herb Jones Glucose [Mass/Vol] 102 mg/dL Normal 74-106 [facility] Comment on above: Performed By: #### C MP #### [facility] [address] [place] [address] Dr. Herb Jones Potassium [Moles/Vol] 3.8 mmol/L Normal 3.5-5.1 [facility] Comment on above: Performed By: #### C MP #### [facility] [address] [place] [address] Dr. Herb Jones Protein [Mass/Vol] 7.4 g/dL Normal 6.4-8.2 [facility] Comment on above: Performed By: #### C MP #### [facility] [address] [address] [address] Herb Jones Sodium [Moles/Vol] 133 mmol/L Critically low 136-145 [facility] Comment on above: Performed By: #### C MP #### [facility] [id number] Herb Jones Urea nitrogen [Mass/Vol] 12.0 mg/dL Normal 7.0-18.0 [facility] Comment on above: Performed By: #### C MP #### [facility] [address] [address] [address] Herb Jones Urea nitrogen/Creatinine [Mass ratio] 12.4 mg/mg Normal [facility] Comment on above: Performed By: #### C MP #### [facility] [id number] Herb Jones STREPT SCREENon 08-30-2022 STREP SCREEN A Negative Normal NEGATIVE [facility] Comment on above: Performed By: #### S SCRN, GRASTCX ####[facility] [address] [place], [place] [address]LjDr. Herb Jones SYMPTOMATIC COVID-19 ANTIGEN on 08-30-2022 EUA Statement SEE BELOW Normal [facility] Comment on above: Result Comment: This test [...] revoked sooner. Performed By: #### C VDAGS ####[facility] [address] [id number][address] Herb Jones SARS-CoV-2 (COVID-19) RNA BLANCA+probe Ql (Unsp spec) Negative Normal NEGATIVE [facility] Comment on above: Performed By: #### C VDAGS ####[facility] [address] [id number]. Herb Jones XR CHEST 1 Von 08-30-2022 [...] EMILY MUNROE Date: 2022-08-30 16:36 Normal [facility] LIPID PROFILEon 08-04-2022 CHOL-HDL RATIO NORM SEE BELOW Normal [facility] Comment on above: Result Comment: 3.3 - 4.4 LOW RISK 4.4 - 7.1 AVERAGE RISK 7.1 - 11.0 MODERATE RISK >11.0 HIGH RISK Performed By: #### L IPID, ALT, AST ####[facility] [address] [id number]. Herb Jones Cholesterol [Mass/Vol] 111 mg/dL Normal <=200 [facility] Comment on above: Performed By: #### L IPID, ALT, AST ####[facility] [address] [address]Dr. Herb Jones Cholesterol in HDL [Mass/Vol] 46 mg/dL Normal 40-60 [facility] Comment on above: Performed By: #### L IPID, ALT, AST ####[facility] [address] [id number]. Herb Jones Cholesterol in LDL [Mass/Vol] 56.4 mg/dL Normal [facility] Comment on above: Performed By: #### L IPID, ALT, AST ####[facility] [address] [address]Dr. Herb Jones Cholesterol.total/Ch olesterol in HDL [Mass ratio] 2.4 {ratio} Normal [facility] Comment on above: Performed By: #### L IPID, ALT, AST ####[facility] [address] [id number]. Herb Jones HDL NORMAL > or = 60 mg/dl - LO W CARDIOVASCULAR RISK <40 mg/dl - HIGH CARDIOVASCULAR RISK Normal [facility] Comment on above: Performed By: #### L IPID, ALT, AST ####[facility] [address] [address]Dr. Herb Jones LDL CALC NORMAL SEE BELOW Normal [facility] Comment on above: Result Comment: <100 mg/dl OPTIMAL 100 - 129 mg/dl NEAR OR ABOVE OPTIMAL 130 - 159 mg/dl BORDERLINE HIGH 160 - 189 mg/dl HIGH >190 mg/dl VERY HIGH Performed By: #### L IPID, ALT, AST ####[facility] [address] [place] [address]DrVinod Jones Triglyceride [Mass/Vol] 43 mg/dL Normal <=150 [facility] Comment on above: Performed By: #### L IPID, ALT, AST ####[facility] [address] [address]Dr. Herb Jones VLDL CALC 8.6 mg/dL Normal [facility] Comment on above: Performed By: #### L IPID, ALT, AST ####[facility] [address] [address]Dr. Herb Jones SGOTon 08-04-2022 AST [Catalytic activity/Vol] 18 U/L Normal 15-37 [facility] Comment on above: Performed By: #### L IPID, ALT, AST #### [facility] [address] [address] [address] Herb FENGPTon 08-04-2022 ALT [Catalytic activity/Vol] 20 U/L Normal 16-63 [facility] Comment on above: Performed By: #### L IPID, ALT, AST #### [facility] [address] [address] [address] Herb Jones Office Visit (Cardiology)on 06-10-2022 Follow-up visit Diagnoses/Problems Assessed Mixed hyperlipidemia (272.2) (E78.2) PVD (peripheral vascular disease) (443.9) (I73.9) Status post left lower extremity stenting TIA (transient ischemic attack) (435.9) (G45.9) Former smoker (V15.82) (Z87.891) quit 05/22/22 Overweight with body mass index (BMI) of 25 to 25.9 in adult (278.02,V85.21) (E66.3,Z68.25) Orders Abnormal EKG IO EKG Electrocardiogram- 12 Lead; Status:Complete; Done: [id number] Mixed hyperlipidemia Start: Atorvastatin Calcium 20 MG Oral Tablet; TAKE 1 TABLET AT BEDTIME ALT - Alanine Aminotransferase, Serum; Status:Active - Retrospective Authorization; Requested for:[id number]; AST; Status:Active - Retrospective Authorization; Requested for:[id number]; Lipid Panel; Status:Active - Retrospective Authorization; Requested for:[id number]; PVD (peripheral vascular disease) Renew: Aspirin 81 MG Oral Tablet Delayed Release; TAKE 1 TABLET DAILY SocHx: Former smoker Tobacco Use Screening; Status:Complete; Done: [id number] SocHx: Former smoker, Overweight with body mass index (BMI) of 25 to 25.9 in adult Healthy Weight Tips; Status:Complete - Retrospective Authorization; Done: [id number] Some eating tips that can help you lose weight.; Status:Complete - Retrospective Authorization; Done: [id number] Unlinked Stop: Amiodarone HCl - 200 MG [...] of your visit. obtain PVR test from [facility] Follow up in 6 months Chief Complaint [...] had PVR study several months ago at [facility] which I requested. His cardiac and pulmonary [...] DAILY. Omeprazole (more content not included)... [employer] Tobacco Screening.on 023 Tobacco use status CPHS b) No [facility] [employer] 250 DO Work Phone: Tobacco Screening. Yes [facility] [employer] 250 DO Work Phone: CBC W Auto Differential pane l (Bld)on 05-20-2022 Basophils (Bld) [#/Vol] 0.07 10*3/uL <0.11 k/uL [facility] Basophils/100 WBC (Bld) 1.1 % [facility] Differential cell count method Nom (Bld) Auto [facility] Eosinophils (Bld) [#/Vol] 0.08 10*3/uL <0.46 k/uL [facility] Eosinophils/100 WBC (Bld) 1.3 % [facility] Erythrocyte distribution width (RBC) [Ratio] 14.5 % 11.5 - 15.0 % [facility] Hematocrit (Bld) [Volume fraction] 43.8 % 39.0 - 51.0 % [facility] Hemoglobin (Bld) [Mass/Vol] 14.1 g/dL 13.0 - 17.0 g/dL [facility] Immature granulocytes (Bld) [#/Vol] 0.05 10*3/uL <0.10 k/uL [facility] Immature granulocytes/100 WBC (Bld) 0.8 % [facility] Lymphocytes (Bld) [#/Vol] 1.33 10*3/uL 1.00 - 4.00 k/uL [facility] Lymphocytes/100 WBC (Bld) 21.8 % [facility] MCH (RBC) [Entitic mass] 31.9 pg 26.0 - 34.0 pg [facility] MCHC (RBC) [Mass/Vol] 32.2 g/dL 30.5 - 36.0 g/dL [facility] MCV (RBC) [Entitic vol] 99.1 fL 80.0 - 100.0 fL [facility] Monocytes (Bld) [#/Vol] 0.72 10*3/uL <0.87 k/uL [facility] Monocytes/100 WBC (Bld) 11.8 % [facility] Neutrophils (Bld) [#/Vol] 3.86 10*3/uL 1.45 - 7.50 k/uL [facility] Neutrophils/100 WBC (Bld) 63.2 % [facility] Nucleated RBC (Bld) [#/Vol] <0.01 k/uL [facility] Nucleated RBC/100 WBC (Bld) [Ratio] 0.0 /100 WBC [facility] Platelet mean volume (Bld) [Entitic vol] 9.3 fL 9.0 - 12.7 fL [facility] Platelets (Bld) [#/Vol] 281 10*3/uL 150 - 400 k/uL [facility] RBC (Bld) [#/Vol] 4.42 10*6/uL 4.20 - 6.00 m/uL [facility] WBC (Bld) [#/Vol] 6.11 10*3/uL 3.70 - 11.00 k/uL [facility] Comprehensive metabolic 2000 panelon 05-20-2022 Albumin [Mass/Vol] 4.6 g/dL 3.9 - 4.9 g/dL [facility] ALP [Catalytic activity/Vol] 119 U/L High 38 - 113 U/L [facility] ALT [Catalytic activity/Vol] 15 U/L 10 - 54 U/L [facility] Anion gap [Moles/Vol] 11 mmol/L 9 - 18 mmol/L [facility] AST [Catalytic activity/Vol] 21 U/L 14 - 40 U/L [facility] Bilirubin [Mass/Vol] 0.5 mg/dL 0.2 - 1 .3 mg/dL [facility] Calcium [Mass/Vol] 9.8 mg/dL 8.5 - 10. 2 mg/dL [facility] Chloride [Moles/Vol] 102 mmol/L 97 - 10 5 mmol/L [facility] CO2 [Moles/Vol] 23 mmol/L 22 - 30 mmol/L [facility] Creatinine [Mass/Vol] 1.16 mg/dL 0.73 - 1.22 mg/dL [facility] Estimated Glomerular Filtration Rate 72 mL/min/1.73m >=60 mL/min/1.7 3m [facility] Glucose [Mass/Vol] 106 mg/dL High 74 - 99 mg/dL [facility] Potassium [Moles/Vol] 4.7 mmol/L 3.7 - 5.1 mmol/L [facility] Protein [Mass/Vol] 7.4 g/dL 6.3 - 8.0 g/dL [facility] Sodium [Moles/Vol] 136 mmol/L 136 - 144 mmol/L [facility] Urea nitrogen [Mass/Vol] 18 mg/dL 9 - 24 mg/dL [facility] CT Chest W contrast Joanna IMPRESSION: 1. [...] any questions regarding this interpretation, please call [phone]. If you are unable to reach us at the number above, please feel free to contact [facility] eRadiology at [phone]. DIVISION OF RADIOLOGY * * *Final Report* * * DATE OF EXAM: Apr 14 2022 11:45AM [facility] 0539 - CT CHEST W IVCON [...] clips within the gallbladder fossa are noted. Fireworks Assembly Supervisor (topogram) images: No additional findings. DIVISION OF RADIOLOGY Provider, [facility] - 04/15/2022 * * *Final Report* * * DATE OF EXAM: Apr 14 2022 11:45AM [facility] 0539 - CT CHEST W IVCON [...] clips within the gallbladder fossa are noted. Fireworks Assembly Supervisor (topogram) images: No additional findings. IMPRESSION IMPRESSION: [...] any questions regarding this interpretation, please call [phone]. If you are unable to reach us at the number above, please feel free to contact [facility] eRadiology at [phone]. [facility] MRI SHOULDER RT WO CONon MRI [...] BELLA PEREIRA Date: 2022-04-15 16:08 Normal [facility] CREATININE BLDOrdered By: Stanley Zaman on 04-14-2022 Creatinine [Mass/Vol] 1.16 mg/dL 0.73 - 1.22 mg/dL [facility] GFR/1.73 sq M.predicted among non-blacks MDRD (S/P/Bld) [Vol rate/Area] 72 mL/min/{1.73_m2} - PINF [facility] Comment on above: Estimated Glomerular Filtration Rate [...] Interpretation and review of laboratory results Normal [facility] CT Neck W contrast Joanna 04-03 [...] any questions regarding this interpretation, please call [phone]. If you are unable to reach us at the number above, please feel free to contact [facility] eRadiology at [phone]. 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 Otherwise, bilateral parotid glands are unremarkable. Anode Rebuilder spaces appear normal. Infrahyoid Neck: Mucosal/mucosal edema [...] content not included)... DIVISION OF RADIOLOGY Provider, 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 Otherwise, bilateral parotid glands are unremarkable. Anode Rebuilder spaces appear normal. Infrahyoid Neck: Mucosal/mucosal edema [...] hydrocephalus. Cervical spine (more content not included)... [facility] CT Neck W contrast IVOrdered By: Ccf Provider on 04-14-2022 [facility] No Panel Informationon 04-14 Radiology Study observation (narrative) [facility] Echocardiogramon 01-13-[address], [address], [place] [address] TRANSTHORACIC ECHOCARDIOGRAM REPORT Patient Name: ALEJO FLOYD Reading Physician: [id number] Carmen Neely MD, [facility] Study Date: 01/13/2022 Referring [id number] CARMEN NEELY Physician: MRN/PID: [id number] PCP: Gildardo Lacy Accession/Order#: [id number] [facility] Location: Date of : 1960 Fellow: Gender: M Nurse: Admit Date: Occupational Therapy Department Chair: Tamika Howard RDCS, RVT Height: 177.80 cm CC Report to: Weight: 74.39 kg Study Type: Echocardiogram BSA: 1.92 m2 Blood Pressure: 152 /80 mmHg Diagnosis/ICD: R94.31-Abnormal electrocardiogram [ECG] [EKG]; R06.00-Dyspnea, unspecified Indication: COPD, Tobacco Abuse, Peripheral Vascular Disease, Left Femoral Artery Stent, TIA, Depression Procedure/CPT: Echo Complete w Full [id number] Study Detail: The following Echo studies were [...] 0.8 m/s (0.6-0.9m/s) PV Max P.3 mmHg [id number] Carmen Neely MD, [facility] Electronically signed on 01/14/2022 at 5:13:15 PM Final Normal [facility] Echocardiography Please click on the link to view the study images Normal [facility] [email or web address] Work Phone: Falls Screening (Age 18+)on 01-13-2022 Fall risk assessment a) No falls within the last year [facility] [email or web address] [email or web address] Work Phone: [facility] CARDIAC STRESS/REST INJE CTIONon 01-13-2022 [facility] CARDIAC STRESS/REST INJECTION Patient Name: ALEJO FLOYD STUDY: MYOCARDIAL PERFUSION STRESS TEST WITH LEXISCAN Performing facility: [facility], [address] [place] [address], [address] Provider: Carmen Neely MD, [facility] PCP: Dr. Caren Lacy Supervising provider: Grisel Woods MD, [facility] INDICATION: Abnormal EKG; Dyspnea HISTORY: Gender: M; Age: 61 y/o ; Height: 177.8 cm; Weight: 74.3258385 kg. Abnormal EKG; SOB; COPD; PVD TIA Throat Cancer Currently smoking. COMPARISON: No comparison. ACCESSION NUMBER(S): [id number]; [id number]; [id number] ORDERING CLINICIAN: CARMEN NEELY TECHNIQUE: ONE DAY [...] Electronically signed by: YASH WOODARD MD Normal [facility] No Panel Informationon 01-13 Normal [facility] lk 600 DO Work Phone: GLUCOSE, BLOOD (POC)on 12-23 Glucose [Mass/Vol] 102 mg/dL Abnormal 74 - 99 mg/dL [facility] Comment on above: Location:[facility], [address] [place] [address] , [place], [place], [address] The Accu-Chek Inform II glucose meter has [...] Interpretation and review of laboratory results Abnormal [facility] PET+CT Guidance for localiza tion of [...] any questions regarding this interpretation, please call [phone]. If you are unable to reach us at the number above, please feel free to contact [facility] at [phone]. DIVISION OF RADIOLOGY * * *Final Report* [...] possibly secondary to muscle spasm or posture. Fireworks Assembly Supervisor (topogram) images: No additional findings. DIVISION OF RADIOLOGY Provider, Doe Will [facility] - 12/23/2021 * * *Final Report* [...] possibly secondary to muscle spasm or posture. Fireworks Assembly Supervisor (topogram) images: No additional findings. IMPRESSION IMPRESSION: [...] any questions regarding this interpretation, please call [phone]. If you are unable to reach us at the number above, please feel free to contact [facility] eRadiology at [phone]. [facility] Radiology Study observation (narrative) [facility] PET+CT Guidance for localiza tion of tumor of Skull base to mid-thigh-- W [id number] IVOrdered By: Ccf Provider on 12-23-2021 [facility] Falls Screening (Age 18+)on 11-27-2021 [facility] Work Phone: Fall risk assessment c) Not medically indicated -[facility] norma 250 DO Work Phone: Tobacco use status CP a) Yes -[facility]-[place] norma 250 DO Work Phone: Falls Screening (Age 18+) Yes [facility]-[place] norma 250 DO Work Phone: Falls Screening (Age 18+) 1-Several days -[facility] norma 250 DO Work Phone: Falls Screening (Age 18+) 3-Nearly every day -[facility] norma 250 DO Work Phone: Falls Screening (Age 18+) 0-Not at all -[facility] rodasy 250 DO Work Phone: Falls Screening (Age 18+) Somewhat Difficult -[facility] rodasy 250 DO Work Phone: Office [...] Echocardiogram; Status:Hold For - Scheduling,Retrospective Authorization; Requested for:[id number]; [place] Cardiac Stress/Rest Nuclear Med Order; Status:Hold For - Scheduling,Retrospective Authorization; Requested for:[id number]; Radiologist to Determine Optimal Study : Y [...] we can help. You may also call [phone] for free resources and assistance.; Status:Complete - Retrospective Authorization; Done: [id number] Tobacco Use Screening; Status:Complete; Done: [id number] Unlinked Stop: amLODIPine Besylate 5 MG Oral [...] records from Dr. Shyanne Najera MD from [facility] Follow up in 6 months I, Arlette Strange LPN, am scribing for and in the presence of, Dr. Carmen Neely MD Chief Complaint ALEJO FLOYD is being seen for a consultation for SRE. 61-year-old -[place]izen [place] who is in my office for the first time to establish relationship with cardiology. The patient has history of active tobacco abuse and PAD involving mostly the left femoral artery where he had stenting done several years ago in [place]. He has no previous cardiac catheterizations or [...] BELLA PEREIRA Date: 2021-11-26 07:46 Normal [facility] CT LSPINE WO CONon 2 CT LSKING [...] DARIEN HARP Date: 2021-11-20 10:19 Normal [facility] ER URINE PROFILEon 2 Bilirubin Ql (U) Negative Normal NEGATIVE [facility] Comment on above: Performed By: #### E RUR #### [facility] [address] [place] [address] Dr. Herb Jones Clarity (U) CLEAR Normal CLEAR [facility] Comment on above: Performed By: #### E RUR #### [facility] [address] [place] [address] Dr. Herb Jones Color (U) YELLOW Normal YELLOW [facility] Comment on above: Performed By: #### E RUR #### [facility] [address] [place] [address] Dr. Herb SPEAR A micrscopic examina tion will be performed if indicated. Normal [facility] Comment on above: Performed By: #### E RUR #### [facility] [address] [place] [address] Dr. Herb Jones Glucose Ql (U) Negative Normal NEGATIVE [facility] Comment on above: Performed By: #### E RUR #### [facility] [address] [place] [address] Dr. Herb Jones Hemoglobin Ql (U) Negative Normal NEGATIVE [facility] Comment on above: Performed By: #### E RUR #### [facility] [address] [place] [address] Dr. Herb Jones Ketones Ql (U) Negative Normal NEGATIVE [facility] Comment on above: Performed By: #### E RUR #### [facility] [address] [place] [address] Dr. Herb Jones LEUKOCYTES Negative Normal NEGATIVE [facility] Comment on above: Performed By: #### E RUR #### [facility] [address] [place] [address] Dr. Herb Jones Nitrite Ql (U) Negative Normal NEGATIVE [facility] Comment on above: Performed By: #### E RUR #### [facility] [address] [place] [address] Dr. Herb Jones pH (U) 7.0 [pH] Normal 5-9 [facility] Comment on above: Performed By: #### E RUR #### [facility] [address] [place], [place] [id number] Dr. Herb Jones SPEC GRAVITY 1.015 Normal 1.005-<=1. 025 [facility] Comment on above: Performed By: #### E RUR #### [facility] [address] [place] [address] Dr. Herb Jones UA PROTEIN Negative Normal NEGATIVE/ TRACE [facility] Comment on above: Performed By: #### E RUR #### [facility] [address] [place] [address] Dr. Herb Jones UR MICRO IND NOT INDICATED Normal [facility] Comment on above: Performed By: #### E RUR #### [facility] [address] [place] [address] Dr. Herb Jones Urobilinogen Qn (U) 4 {Shon'U}/dL Abnormal 0.2 - 1.0 [facility] Comment on above: Performed By: #### E RUR #### [facility] [address] [place] [address] Dr. Herb Jones BASIC METABOLIC PANELon 05-2 -2021 Calcium [Mass/Vol] 8.6 mg/dL Normal 8.6-10.3 [facility] Comment on above: Order Comment: No: D o not add to previous draw Performed By: #### 0 0071, 17460, 47971 #### [facility] [address] [place] [address], [place] Chloride [Moles/Vol] 108 mmol/L High 98-107 [facility] Comment on above: Order Comment: No: D o not add to previous draw Performed By: #### 0 0071, 88324, 14657 #### [facility] [address] [place] [address], [place] CO2 [Moles/Vol] 20 mmol/L Low 21-31 [facility] Comment on above: Order Comment: No: D o not add to previous draw Performed By: #### 0 0071, 92419, 41238 #### [facility] [address] [place] [address], [place] Creatinine [Mass/Vol] 0.83 mg/dL Normal 0.70-1.30 [facility] Comment on above: Order Comment: No: D o not add to previous draw Performed By: #### 0 0071, 45339, 66122 #### [facility] [address] [place] [address], [place] GFR/1.73 sq M.predicted among blacks MDRD (S/P/Bld) [Vol rate/Area] mL/min/{1.73_m2} Normal >60 [facility] Comment on above: Order Comment: No: D o not add to previous draw Performed By: #### 0 0071, 33599, 08951 #### [facility] [address] [place] [address], [place] GFR/1.73 sq M.predicted among non-blacks MDRD (S/P/Bld) [Vol rate/Area] mL/min/{1.73_m2} Normal >60 [facility] Comment on above: Order Comment: No: D o not add to previous draw Performed By: #### 0 0071, 83036, 85039 #### [facility] [address] [place] [address], [place] Glucose [Mass/Vol] 71 mg/dL Normal 70-100 [facility] Comment on above: Order Comment: No: D o not add to previous draw Performed By: #### 0 0071, 38345, 75494 #### [facility] [address] [place] [address], [place] Potassium [Moles/Vol] 3.2 mmol/L Low 3.5-5.1 [facility] Comment on above: Order Comment: No: D o not add to previous draw Performed By: #### 0 0071, 54209, 95450 #### [facility] [address] [place] [address], [place] Sodium [Moles/Vol] 140 mmol/L Normal 136-145 [facility] Comment on above: Order Comment: No: D o not add to previous draw Performed By: #### 0 0071, 04956, 37834 #### [facility] [address] Urea nitrogen [Mass/Vol] 21 mg/dL Normal 7-25 [facility] Comment on above: Order Comment: No: D o not add to previous draw Performed By: #### 0 0071, 32187, 98111 #### [facility] [address] CBC W/DIFFon 09-20-2021 ABS IMM GRANS 0.0 10*3/uL Normal 0.0-0.2 [facility] Comment on above: Order Comment: No: D o not add to previous draw Performed By: #### 1 0070 #### [facility] [address] ABS NEUTROPHILS 2.3 10*3/uL Normal 1.6-7.6 [facility] Comment on above: Order Comment: No: D o not add to previous draw Performed By: #### 1 0070 #### [facility] [address] [place] [address], [facility] Basophils (Bld) [#/Vol] 0.0 10*3/uL Normal 0.0-0.2 [facility] Comment on above: Order Comment: No: D o not add to previous draw Performed By: #### 1 0070 #### [facility] [address] [place] [address], [facility] Basophils/100 WBC (Bld) 0.3 % Normal 0.0-1.0 [facility] Comment on above: Order Comment: No: D o not add to previous draw Performed By: #### 1 0070 #### [facility] [address] [place] [address], [facility] Eosinophils (Bld) [#/Vol] 0.0 10*3/uL Normal 0.0-0.5 [facility] Comment on above: Order Comment: No: D o not add to previous draw Performed By: #### 1 0070 #### [facility] [address] [facility] [place] [address], [facility] Eosinophils/100 WBC (Bld) 0.5 % Normal 0.0-6.0 [facility] Comment on above: Order Comment: No: D o not add to previous draw Performed By: #### 1 0070 #### [facility] [address] [facility] [address] Erythrocyte distribution width (RBC) [Ratio] 17.2 % High 11.5-15.0 [facility] Comment on above: Order Comment: No: D o not add to previous draw Performed By: #### 1 0070 #### [facility] [address] Hematocrit (Bld) [Volume fraction] 32.6 % Low 39.0-50.0 [facility] Comment on above: Order Comment: No: D o not add to previous draw Performed By: #### 1 0070 #### [facility] [address] [facility] [place] [address], [facility] Hemoglobin (Bld) [Mass/Vol] 10.7 g/dL Low 13.0-17.0 [facility] Comment on above: Order Comment: No: D o not add to previous draw Performed By: #### 1 0070 #### [facility] [address] [facility] [place] [address], [facility] IMMATURE GRANS 0.3 % Normal 0.0-1.0 [facility] Comment on above: Order Comment: No: D o not add to previous draw Performed By: #### 1 0070 #### [facility] [address] [facility] [place] [address], [facility] Lymphocytes (Bld) [#/Vol] 0.8 10*3/uL Low 1.2-4.0 [facility] Comment on above: Order Comment: No: D o not add to previous draw Performed By: #### 1 0070 #### [facility] [address] [place] [address], [facility] Lymphocytes/100 WBC (Bld) 21.9 % Normal 20.0-45.0 [facility] Comment on above: Order Comment: No: D o not add to previous draw Performed By: #### 1 0070 #### [facility] [address] [place] [address], [facility] MCH (RBC) [Entitic mass] 33.9 pg High 27.0-33.0 [facility] Comment on above: Order Comment: No: D o not add to previous draw Performed By: #### 1 0070 #### [facility] [address] [facility] [place] [id number], [facility] MCHC (RBC) [Mass/Vol] 32.8 g/dL Normal 32.0-35.0 [facility] Comment on above: Order Comment: No: D o not add to previous draw Performed By: #### 1 0070 #### [facility] [address] [facility] [place] [id number], [facility] MCV (RBC) [Entitic vol] 103.2 fL High 82.0-98.0 [facility] Comment on above: Order Comment: No: D o not add to previous draw Performed By: #### 1 0070 #### [facility] [address] [facility] [place] [id number], [facility] Monocytes (Bld) [#/Vol] 0.5 10*3/uL Normal 0.1-1.0 [facility] Comment on above: Order Comment: No: D o not add to previous draw Performed By: #### 1 0070 #### [facility] [address] [place] [address], [facility] MONOS 13.9 % High 5.0-12.0 [facility] Comment on above: Order Comment: No: D o not add to previous draw Performed By: #### 1 0070 #### [facility] [address] [place] [id number], [facility] Neutrophils/100 WBC (Bld) 63.1 % Normal 40.0-72.0 [facility] Comment on above: Order Comment: No: D o not add to previous draw Performed By: #### 1 0070 #### [facility] [address] [place] [id number], [facility] Nucleated RBC/100 WBC (Bld) [Ratio] 0 % Normal 0-0 [facility] Comment on above: Order Comment: No: D o not add to previous draw Performed By: #### 1 0070 #### [facility] [address] [place] [id number], [facility] PLAT CNT 254 10*3/uL Normal 150-400 [facility] Comment on above: Order Comment: No: D o not add to previous draw Performed By: #### 1 0070 #### [facility] [address] [place] [address], [facility] RBC (Bld) [#/Vol] 3.16 10*6/uL Low 4.20-5.70 [facility] Comment on above: Order Comment: No: D o not add to previous draw Performed By: #### 1 0070 #### [facility] [address] [place] [address], [place] WBC (Bld) [#/Vol] 3.66 10*3/uL Low 4.00-10.60 [facility] Comment on above: Order Comment: No: D o not add to previous draw Performed By: #### 1 0070 #### [facility] [address] [place] [address], [place] MAGNESIUM BLOODon 09-20-2021 Magnesium [Mass/Vol] 1.8 mg/dL Low 1.9-2.7 [facility] Comment on above: Order Comment: No: D o not add to previous draw Performed By: #### 0 0071, 60170, 20085 #### [facility] [address] [place] [address], [facility] PHOSPHORUS BLOODon Phosphate [Mass/Vol] 1.8 mg/dL Low 2.5-5.0 [facility] Comment on above: Order Comment: No: D o not add to previous draw Performed By: #### 0 0071, 82181, 54288 #### [facility] [address] [place] [address], [facility] APTTon 09-19-2021 aPTT Coag (Bld) [Time] 25.3 s Normal 25.0-35.0 [facility] Comment on above: Order Comment: No: [...] THIS PURPOSE. Performed By: #### 0 0071, 11453, 35652 #### [facility] [address] [place] [address], [facility] BASIC METABOLIC PANELon 09-01 Calcium [Mass/Vol] 9.0 mg/dL Normal 8.6-10.3 [facility] Comment on above: Order Comment: No: D o not add to previous draw Performed By: #### 0 0071, 81102, 42027 #### [facility] [address] [place] [address], [facility] Chloride [Moles/Vol] 104 mmol/L Normal 98-107 [facility] Comment on above: Order Comment: No: D o not add to previous draw Performed By: #### 0 0071, 48886, 46469 #### [facility] [address] [place] [address], [facility] CO2 [Moles/Vol] 23 mmol/L Normal 21-31 [facility] Comment on above: Order Comment: No: D o not add to previous draw Performed By: #### 0 0071, 98039, 80391 #### [facility] [address] [place] [address], [facility] Creatinine [Mass/Vol] 1.29 mg/dL Normal 0.70-1.30 [facility] Comment on above: Order Comment: No: D o not add to previous draw Performed By: #### 0 0071, 54537, 42783 #### [facility] [address] [place] [address], [facility] eGFR- non- 57 ml/min/1.73sq m Abnormal >60 [facility] Comment on above: Order Comment: No: D o not add to previous draw Performed By: #### 0 0071, 05098, 49775 #### [facility] [address] [place] [address], [facility] GFR/1.73 sq M.predicted among blacks MDRD (S/P/Bld) [Vol rate/Area] mL/min/{1.73_m2} Normal >60 [facility] Comment on above: Order Comment: No: D o not add to previous draw Performed By: #### 0 0071, 86268, 34797 #### [facility] [address] [place] [address], [facility] Glucose [Mass/Vol] 131 mg/dL High 70-100 [facility] Comment on above: Order Comment: No: D o not add to previous draw Performed By: #### 0 0071, 86048, 36472 #### [facility] [address] [place] [address], [place] Potassium [Moles/Vol] 3.1 mmol/L Low 3.5-5.1 [facility] Comment on above: Order Comment: No: D o not add to previous draw Performed By: #### 0 0071, , 68203 #### [facility] [address] [facility]. [address] Sodium [Moles/Vol] 141 mmol/L Normal 136-145 [facility] Comment on above: Order Comment: No: D o not add to previous draw Performed By: #### 0 0071, 99052, 46402 #### [facility] [address] Urea nitrogen [Mass/Vol] 40 mg/dL High 7-25 [facility] Comment on above: Order Comment: No: D o not add to previous draw Performed By: #### 0 0071, , 65721 #### [facility] [address] CBC W/DIFFon 09-19-2021 ABS IMM GRANS 0.0 10*3/uL Normal 0.0-0.2 [facility] Comment on above: Performed By: #### 0 0071, , 62120 #### [facility] [address] ABS NEUTROPHILS 3.2 10*3/uL Normal 1.6-7.6 [facility] Comment on above: Performed By: #### 0 0071, , 12012 #### [facility] [address] Basophils (Bld) [#/Vol] 0.0 10*3/uL Normal 0.0-0.2 [facility] Comment on above: Performed By: #### 0 0071, 17245, 72665 #### [facility] [address] Basophils/100 WBC (Bld) 0.5 % Normal 0.0-1.0 [facility] Comment on above: Performed By: #### 0 0071, , 01389 #### [facility] [address] [facility] [address] Eosinophils (Bld) [#/Vol] 0.0 10*3/uL Normal 0.0-0.5 [facility] Comment on above: Performed By: #### 0 0071, 90597, 65981 #### [facility] [address] [place] [address], [facility] Eosinophils/100 WBC (Bld) 0.0 % Normal 0.0-6.0 [facility] Comment on above: Performed By: #### 0 007, , 83579 #### [facility] [address] Erythrocyte distribution width (RBC) [Ratio] 17.3 % High 11.5-15.0 [facility] Comment on above: Performed By: #### 0 0071, , 47153 #### [facility] [address] [facility]. [address] Hematocrit (Bld) [Volume fraction] 37.6 % Low 39.0-50.0 [facility] Comment on above: Performed By: #### 0 007, , 05526 #### [facility] [address] [facility]. [address] Hemoglobin (Bld) [Mass/Vol] 12.7 g/dL Low 13.0-17.0 [facility] Comment on above: Performed By: #### 0 0071, 98185, 83979 #### [facility] [address] [place] [address], [facility] IMMATURE GRANS 0.2 % Normal 0.0-1.0 [facility] Comment on above: Performed By: #### 0 0071, 67576, 46257 #### [facility] [address] [place] [address], [facility] Lymphocytes (Bld) [#/Vol] 0.6 10*3/uL Low 1.2-4.0 [facility] Comment on above: Performed By: #### 0 0071, 50075, 24800 #### [facility] [address] Lymphocytes/100 WBC (Bld) 13.1 % Low 20.0-45.0 [facility] Comment on above: Performed By: #### 0 0071, , 72089 #### [facility] [address] MCH (RBC) [Entitic mass] 34.0 pg High 27.0-33.0 [facility] Comment on above: Performed By: #### 0 0071, , 92515 #### [facility] [address] MCHC (RBC) [Mass/Vol] 33.8 g/dL Normal 32.0-35.0 [facility] Comment on above: Performed By: #### 0 007, , 93441 #### [facility] [address] MCV (RBC) [Entitic vol] 100.5 fL High 82.0-98.0 [facility] Comment on above: Performed By: #### 0 007, , 66891 #### [facility] [address] Monocytes (Bld) [#/Vol] 0.5 10*3/uL Normal 0.1-1.0 [facility] Comment on above: Performed By: #### 0 0071, 09268, 58140 #### [facility] [address] MONOS 11.4 % Normal 5.0-12.0 [facility] Comment on above: Performed By: #### 0 0071, , 46264 #### [facility] [address] [place] [address], [facility] Neutrophils/100 WBC (Bld) 74.8 % High 40.0-72.0 [facility] Comment on above: Performed By: #### 0 0071, 74114, 32274 #### [facility] [address] [place] [address], [facility] Nucleated RBC/100 WBC (Bld) [Ratio] 0 % Normal 0-0 [facility] Comment on above: Performed By: #### 0 0071, 11930, 98974 #### [facility] [address] [facility] [place] [address], [facility] PLAT CNT 257 10*3/uL Normal 150-400 [facility] Comment on above: Performed By: #### 0 0071, 65608, 79848 #### [facility] [address] [facility] [place] [address], [facility] RBC (Bld) [#/Vol] 3.74 10*6/uL Low 4.20-5.70 [facility] Comment on above: Performed By: #### 0 0071, 33429, 10950 #### [facility] [address] [facility] [place] [address], [facility] WBC (Bld) [#/Vol] 4.28 10*3/uL Normal 4.00-10.60 [facility] Comment on above: Performed By: #### 0 0071, 57666, 80955 #### [facility] [address] [place] [id number], [facility] LACTATE WITH REFLEXon 2021 Lactate [Moles/Vol] 1.2 mmol/L Normal .5-2.2 [facility] Comment on above: Order Comment: No: D o not add to previous draw Performed By: #### 3 1414 #### [facility] [address] [place] [address], [facility] LIVER BATTERYon 09-19-2021 Albumin [Mass/Vol] 4.0 g/dL Normal 3.5-5.7 [facility] Comment on above: Order Comment: No: D o not add to previous draw Performed By: #### 0 0071, 35998, 15725 #### [facility] [address] [place] [address], [place] ALKALINE PHOSPH 77 IU/L Normal 34-104 [facility] Comment on above: Order Comment: No: D o not add to previous draw Performed By: #### 0 0071, 58553, 64081 #### [facility] [address] [place] [address], [place] ALT [Catalytic activity/Vol] 15 U/L Normal 7-52 [facility] Comment on above: Order Comment: No: D o not add to previous draw Performed By: #### 0 0071, 78208, 19819 #### [facility] [address] [place] [address], [place] AST [Catalytic activity/Vol] 16 U/L Normal 13-39 [facility] Comment on above: Order Comment: No: D o not add to previous draw Performed By: #### 0 0071, 57042, 77589 #### [facility] [address] [place] [address], [place] Bilirubin [Mass/Vol] 1.6 mg/dL High 0.3-1.0 [facility] Comment on above: Order Comment: No: D o not add to previous draw Performed By: #### 0 0071, 53834, 45683 #### [facility] [address] [place] [address], [place] Bilirubin.direct [Mass/Vol] 0.5 mg/dL High 0.0-0.2 [facility] Comment on above: Order Comment: No: D o not add to previous draw Performed By: #### 0 0071, 92050, 56433 #### [facility] [address] [place] [address], [place] Protein [Mass/Vol] 7.0 g/dL Normal 6.0-8.3 [facility] Comment on above: Order Comment: No: D o not add to previous draw Performed By: #### 0 0071, 69212, 20596 #### [facility] [address] [place] [address], [facility] MAGNESIUM BLOODon 2 Magnesium [Mass/Vol] 2.4 mg/dL Normal 1.9-2.7 [facility] Comment on above: Order Comment: No: D o not add to previous draw Performed By: #### 1 0070 #### [facility] [address] [place] [address], [facility] Magnesium [Mass/Vol] 1.9 mg/dL Normal 1.9-2.7 [facility] Comment on above: Order Comment: No: D o not add to previous draw Performed By: #### 0 0071, 17105, 22038 #### [facility] [address] [place] [address], [facility] PHOSPHORUS BLOODon 2 Phosphate [Mass/Vol] 2.8 mg/dL Normal 2.5-5.0 [facility] Comment on above: Order Comment: No: D o not add to previous draw Performed By: #### 0 0071, 09676, 80676 #### [facility] [address] PROTHROMBIN TIMEon 2 INR Coag (PPP) [Relative time] 1.16 {INR} Normal 0.91-1.16 [facility] Comment on above: Order Comment: No: [...] CHEST 1995;108:[id number]. Performed By: #### 0 0071, 26439, 56293 #### [facility] [address] PT Coag (PPP) [Time] 14.7 s Normal 12.3-14.8 [facility] Comment on above: Order Comment: No: D o not add to previous draw Result Comment: ALL RESULTS MUST BE INTERPRETED WITH RESPECT TO BLOOD DRAWING ARTIFACT OR DILUTION ERROR OF ANTICOAGULANT AT THE TIME OF SAMPLING. Performed By: #### 0 0071, 45809, 31838 #### [facility] [address] [facility]. [address] CBC W Auto Differential pane l (Bld)on 09-16-2021 Abs Immature Gran 0.04 k/uL <0.10 k/uL [facility] Basophils (Bld) [#/Vol] 10*3/uL <0.11 k/uL [facility] Basophils/100 WBC (Bld) 0.2 % [facility] Differential cell count method Nom (Bld) Auto [facility] Eosinophils (Bld) [#/Vol] 10*3/uL <0.46 k/uL [facility] Eosinophils/100 WBC (Bld) 0.2 % [facility] Erythrocyte distribution width (RBC) [Ratio] 18.2 % High 11.5 - 15.0 % [facility] Hematocrit (Bld) [Volume fraction] 40.7 % 39.0 - 51.0 % [facility] Hemoglobin (Bld) [Mass/Vol] 13.5 g/dL 13.0 - 17.0 g/dL [facility] Immature Gran % 0.6 % [facility] Lymphocytes (Bld) [#/Vol] 0.67 10*3/uL Low 1.00 - 4.00 k/uL [facility] Lymphocytes/100 WBC (Bld) 10.9 % [facility] MCH (RBC) [Entitic mass] 33.8 pg 26.0 - 34.0 pg [facility] MCHC (RBC) [Mass/Vol] 33.2 g/dL 30.5 - 36.0 g/dL [facility] MCV (RBC) [Entitic vol] 102.0 fL High 80.0 - 100.0 fL [facility] Monocytes (Bld) [#/Vol] 0.38 10*3/uL <0.87 k/uL [facility] Monocytes/100 WBC (Bld) 6.2 % [facility] Neutrophils (Bld) [#/Vol] 5.06 10*3/uL 1.45 - 7.50 k/uL [facility] Neutrophils/100 WBC (Bld) 81.9 % [facility] Nucleated RBC (Bld) [#/Vol] 10*3/uL <0.01 k/uL [facility] Nucleated RBC/100 WBC (Bld) [Ratio] 0.0 /100 WBC [facility] Platelet mean volume (Bld) [Entitic vol] 8.7 fL Low 9.0 - 12.7 fL [facility] Platelets (Bld) [#/Vol] 268 10*3/uL 150 - 400 k/uL [facility] RBC (Bld) [#/Vol] 3.99 10*6/uL Low 4.20 - 6.00 m/uL [facility] WBC (Bld) [#/Vol] 6.17 10*3/uL 3.70 - 11.00 k/uL [facility] Comprehensive metabolic 2000 panelon 09-16-2021 Albumin [Mass/Vol] 5.1 g/dL High 3.9 - 4.9 g/dL [facility] ALP [Catalytic activity/Vol] 104 U/L 38 - 113 U/L [facility] ALT [Catalytic activity/Vol] 17 U/L 10 - 54 U/L [facility] Anion gap [Moles/Vol] 17 mmol/L 9 - 18 mmol/L [facility] AST [Catalytic activity/Vol] [facility] Bilirubin [Mass/Vol] 1.3 mg/dL 0.2 - 1 .3 mg/dL [facility] Calcium [Mass/Vol] 10.6 mg/dL High 8.5 - 10. 2 mg/dL [facility] Chloride [Moles/Vol] 99 mmol/L 97 - 10 5 mmol/L [facility] CO2 [Moles/Vol] 20 mmol/L Low 22 - 30 mmol/L [facility] Creatinine [Mass/Vol] 1.91 mg/dL High 0.73 - 1.22 mg/dL [facility] Estimated Glomerular Filtration Rate 40 mL/min/1.73m Low >=60 mL/min/1.7 3m [facility] Glucose [Mass/Vol] 162 mg/dL High 74 - 99 mg/dL [facility] Potassium [Moles/Vol] 4.5 mmol/L 3.7 - 5.1 mmol/L [facility] Protein [Mass/Vol] 8.4 g/dL High 6.3 - 8.0 g/dL [facility] Sodium [Moles/Vol] 136 mmol/L 136 - 144 mmol/L [facility] Urea nitrogen [Mass/Vol] 35 mg/dL High 9 - 24 mg/dL [facility] CBC W Auto Differential pane l (Bld)on 08-26-2021 Abs Immature Gran 0.08 k/uL <0.10 k/uL [facility] Basophils (Bld) [#/Vol] 10*3/uL <0.11 k/uL [facility] Basophils/100 WBC (Bld) 0.2 % [facility] Differential cell count method Nom (Bld) Auto [facility] Eosinophils (Bld) [#/Vol] 0.05 10*3/uL <0.46 k/uL [facility] Eosinophils/100 WBC (Bld) 0.6 % [facility] Erythrocyte distribution width (RBC) [Ratio] 16.5 % High 11.5 - 15.0 % [facility] Hematocrit (Bld) [Volume fraction] 36.5 % Low 39.0 - 51.0 % [facility] Hemoglobin (Bld) [Mass/Vol] 11.9 g/dL Low 13.0 - 17.0 g/dL [facility] Immature Gran % 0.9 % [facility] Lymphocytes (Bld) [#/Vol] 1.39 10*3/uL 1.00 - 4.00 k/uL [facility] Lymphocytes/100 WBC (Bld) 15.6 % [facility] MCH (RBC) [Entitic mass] 32.2 pg 26.0 - 34.0 pg [facility] MCHC (RBC) [Mass/Vol] 32.6 g/dL 30.5 - 36.0 g/dL [facility] MCV (RBC) [Entitic vol] 98.6 fL 80.0 - 100.0 fL [facility] Monocytes (Bld) [#/Vol] 0.84 10*3/uL <0.87 k/uL [facility] Monocytes/100 WBC (Bld) 9.4 % [facility] Neutrophils (Bld) [#/Vol] 6.52 10*3/uL 1.45 - 7.50 k/uL [facility] Neutrophils/100 WBC (Bld) 73.3 % [facility] Nucleated RBC (Bld) [#/Vol] 10*3/uL <0.01 k/uL [facility] Nucleated RBC/100 WBC (Bld) [Ratio] 0.0 /100 WBC [facility] Platelet mean volume (Bld) [Entitic vol] 9.6 fL 9.0 - 12.7 fL [facility] Platelets (Bld) [#/Vol] 259 10*3/uL 150 - 400 k/uL [facility] RBC (Bld) [#/Vol] 3.70 10*6/uL Low 4.20 - 6.00 m/uL [facility] WBC (Bld) [#/Vol] 8.90 10*3/uL 3.70 - 11.00 k/uL [facility] Comprehensive metabolic 2000 panelon 08-26-2021 Albumin [Mass/Vol] 4.5 g/dL 3.9 - 4.9 g/dL [facility] ALP [Catalytic activity/Vol] 84 U/L 38 - 113 U/L [facility] ALT [Catalytic activity/Vol] 16 U/L 10 - 54 U/L [facility] Anion gap [Moles/Vol] 15 mmol/L 9 - 18 mmol/L [facility] AST [Catalytic activity/Vol] [facility] Bilirubin [Mass/Vol] 0.6 mg/dL 0.2 - 1 .3 mg/dL [facility] Calcium [Mass/Vol] 9.6 mg/dL 8.5 - 10. 2 mg/dL [facility] Chloride [Moles/Vol] 106 mmol/L High 97 - 10 5 mmol/L [facility] CO2 [Moles/Vol] 19 mmol/L Low 22 - 30 mmol/L [facility] Creatinine [Mass/Vol] 1.01 mg/dL 0.73 - 1.22 mg/dL [facility] Estimated Glomerular Filtration Rate 85 mL/min/1.73m >=60 mL/min/1.7 3m [facility] Glucose [Mass/Vol] 95 mg/dL 74 - 99 mg/dL [facility] Potassium [Moles/Vol] 4.7 mmol/L 3.7 - 5.1 mmol/L [facility] Protein [Mass/Vol] 7.2 g/dL 6.3 - 8.0 g/dL [facility] Sodium [Moles/Vol] 140 mmol/L 136 - 144 mmol/L [facility] Urea nitrogen [Mass/Vol] 17 mg/dL 9 - 24 mg/dL [facility] CT CHEST W IVCONon 2 CT CHEST W IVCON * * *Final Report* * * DATE OF EXAM: Jun 20 2021 3:43PM [facility] 0539 - CT CHEST W IVCON [...] seen and may be atrophied or absent. Fireworks Assembly Supervisor (topogram) images: No additional findings. IMPRESSION: 1. [...] centrilobular emphysema with an upper lobe predominance. Car Hop: EDGAR Transcribe Date/Time: Jun 21 2021 5:58A Dictated by : DARIEN PARIKH MD This examination was interpreted and the report reviewed and electronically signed by: DARIEN PARIKH MD on Jun 21 2021 6:26AM EST [id number] Normal [facility] CT NECK SOFT TISSUE W IVCONo n 06-20-2021 CT NECK SOFT TISSUE W IVCON * * *Final Report* * * DATE OF EXAM: Jun 20 2021 3:43PM [facility] 0013 - CT NECK SOFT TISSUE [...] was performed concurrently and is dictated separately. Fireworks Assembly Supervisor (topogram) images: No significant findings. 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 Residual pathologic right level II lymphadenopathy, suspect increased in size since PET/CT of 04/05/2021. No discrete new pathologic lymph nodes. Chronically occluded left ICA. Car Hop: EDGAR Transcribe Date/Time: Jun 20 2021 4:24P Dictated by : CASSIE WONG MD This examination was interpreted and the report reviewed and electronically signed by: CASSIE WONG MD on Jun 20 2021 4:45PM EST [id number] Normal [facility] HISTORY PHYSICALon HISTORY PHYSICAL HNO ID: [id number] Author: Ana Hernandez APRN.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 Service: ? Author Type: Nurse Practitioner Type: [...] new left oropharyngeal FDG uptake. Per Dr. Carpenter's note on 05/15/21 - Underwent FNA of [...] disease, liver (more content not included)... Normal [facility] HISTORY PHYSICAL HNO ID: [id number] Author: Ana Hernandez APRN.SILVINO Service: ? Author [...] fevers. Neurological: No history of TIA's, stroke, TOURIST GUIDE tumor, impaired sensorium, hemiplegia, paraplegia or quadraplegia. No neurological symptoms or problems. Respiratory: No history of current cough or dyspnea, or pneumonia in the past 6 weeks. No history of respiratory/pulmonary symptoms or problems. Cardiovascular: No history of HTN requiring medication, no history of angina, CHF, ME, cardiac surgery or stents. Denies rest pain, [...] 90 mc (more content not included)... Normal [facility] BASIC METABOLIC PANELon 05-05 Calcium [Mass/Vol] 8.6 mg/dL Normal 8.6-10.3 [facility] Comment on above: Order Comment: No: D o not add to previous draw Performed By: #### 0 0071, 00626, 91121 #### [facility] [address] [facility] [place] [address], [facility] Chloride [Moles/Vol] 109 mmol/L High 98-107 [facility] Comment on above: Order Comment: No: D o not add to previous draw Performed By: #### 0 0071, 83791, 15497 #### [facility] [address] [facility] [place] [address], [facility] CO2 [Moles/Vol] 23 mmol/L Normal 21-31 [facility] Comment on above: Order Comment: No: D o not add to previous draw Performed By: #### 0 0071, 37145, 92219 #### [facility] [address] [place] [address], [facility] Creatinine [Mass/Vol] 0.82 mg/dL Normal 0.70-1.30 [facility] Comment on above: Order Comment: No: D o not add to previous draw Performed By: #### 0 0071, 02876, 26771 #### [facility] [address] [place] [address], [facility] GFR/1.73 sq M.predicted among blacks MDRD (S/P/Bld) [Vol rate/Area] mL/min/{1.73_m2} Normal >60 [facility] Comment on above: Order Comment: No: D o not add to previous draw Performed By: #### 0 0071, 23944, 89380 #### [facility] [address] [place] [address], [place] GFR/1.73 sq M.predicted among non-blacks MDRD (S/P/Bld) [Vol rate/Area] mL/min/{1.73_m2} Normal >60 [facility] Comment on above: Order Comment: No: D o not add to previous draw Performed By: #### 0 0071, 60129, 95509 #### [facility] [address] [place] [address], [place] Glucose [Mass/Vol] 117 mg/dL High 70-100 [facility] Comment on above: Order Comment: No: D o not add to previous draw Performed By: #### 0 0071, 72784, 35628 #### [facility] [address] [place] [address], [place] Potassium [Moles/Vol] 3.4 mmol/L Low 3.5-5.1 [facility] Comment on above: Order Comment: No: D o not add to previous draw Performed By: #### 0 0071, 63052, 26362 #### [facility] [address] [place] [address], [place] Sodium [Moles/Vol] 139 mmol/L Normal 136-145 [facility] Comment on above: Order Comment: No: D o not add to previous draw Performed By: #### 0 0071, 64924, 82011 #### [facility] [address] [place] [address], [place] Urea nitrogen [Mass/Vol] 12 mg/dL Normal 7-25 [facility] Comment on above: Order Comment: No: D o not add to previous draw Performed By: #### 0 0071, 26255, 56982 #### [facility] [address] CBC COMPLETE BLOOD COUNTon 05-30-2021 Erythrocyte distribution width (RBC) [Ratio] 12.9 % Normal 11.5-15.0 [facility] Comment on above: Order Comment: No: D o not add to previous draw Performed By: #### 0 0071, 31599, 80531 #### [facility] [address] [place] [address], [facility] Hematocrit (Bld) [Volume fraction] 34.7 % Low 39.0-50.0 [facility] Comment on above: Order Comment: No: D o not add to previous draw Performed By: #### 0 0071, , 32926 #### [facility] [address] [place] [address], [facility] Hemoglobin (Bld) [Mass/Vol] 11.3 g/dL Low 13.0-17.0 [facility] Comment on above: Order Comment: No: D o not add to previous draw Performed By: #### 0 0071, 00585, 67675 #### [facility] [address] [place] [address], [facility] MCH (RBC) [Entitic mass] 32.7 pg Normal 27.0-33.0 [facility] [facility] Comment on above: Order Comment: No: D o not add to previous draw Performed By: #### 0 0071, 46022, 39658 #### [facility] [address] [place] [address], [facility] MCHC (RBC) [Mass/Vol] 32.6 g/dL Normal 32.0-35.0 [facility] Comment on above: Order Comment: No: D o not add to previous draw Performed By: #### 0 0071, 33303, 19986 #### [facility] [address] [place] [address], [facility] MCV (RBC) [Entitic vol] 100.3 fL High 82.0-98.0 [facility] Comment on above: Order Comment: No: D o not add to previous draw Performed By: #### 0 0071, 37669, 44843 #### [facility] [address] [place] [address], [facility] Nucleated RBC/100 WBC (Bld) [Ratio] 0 % Normal 0-0 [facility] Comment on above: Order Comment: No: D o not add to previous draw Performed By: #### 0 0071, 22593, 60850 #### [facility] [address] [place] [address], [place] PLAT CNT 335 10*3/uL Normal 150-400 [facility] Comment on above: Order Comment: No: D o not add to previous draw Performed By: #### 0 0071, 71143, 21599 #### [facility] [address] [place] [address], [facility] RBC (Bld) [#/Vol] 3.46 10*6/uL Low 4.20-5.70 [facility] Comment on above: Order Comment: No: D o not add to previous draw Performed By: #### 0 0071, 83982, 97319 #### [facility] [address] [place] [address], [facility] WBC (Bld) [#/Vol] 7.24 10*3/uL Normal 4.00-10.60 [facility] Comment on above: Order Comment: No: D o not add to previous draw Performed By: #### 0 0071, 05639, 31950 #### [facility] [address] [place] [address], [place] MAGNESIUM BLOODon 05-30-2021 Magnesium [Mass/Vol] 1.7 mg/dL Low 1.9-2.7 [facility] Comment on above: Order Comment: No: D o not add to previous draw Performed By: #### 0 0071, 84222, 27971 #### [facility] [address] [place] [address], [facility] PHOSPHORUS BLOODon Phosphate [Mass/Vol] 1.7 mg/dL Low 2.5-5.0 [facility] Comment on above: Order Comment: No: D o not add to previous draw Performed By: #### 0 0071, 80659, 71768 #### [facility] [address] [place] [address], [facility] BASIC METABOLIC PANELon 05-05 Calcium [Mass/Vol] 8.7 mg/dL Normal 8.6-10.3 [facility] Comment on above: Order Comment: No: D o not add to previous draw Performed By: #### 1 69, 22624 #### [facility] [address] [place] [address], [facility] Chloride [Moles/Vol] 105 mmol/L Normal 98-107 [facility] Comment on above: Order Comment: No: D o not add to previous draw Performed By: #### 1 69, 17627 #### [facility] [address] [place] [address], [facility] CO2 [Moles/Vol] 19 mmol/L Low 21-31 [facility] Comment on above: Order Comment: No: D o not add to previous draw Performed By: #### 1 69, 75789 #### [facility] [address] [place] [address], [place] Creatinine [Mass/Vol] 0.91 mg/dL Normal 0.70-1.30 [facility] Comment on above: Order Comment: No: D o not add to previous draw Performed By: #### 1 69, 25732 #### [facility] [address] [place] [address], [facility] GFR/1.73 sq M.predicted among blacks MDRD (S/P/Bld) [Vol rate/Area] mL/min/{1.73_m2} Normal >60 [facility] Comment on above: Order Comment: No: D o not add to previous draw Performed By: #### 1 69, 67471 #### [facility] [address] [place] [address], [place] GFR/1.73 sq M.predicted among non-blacks MDRD (S/P/Bld) [Vol rate/Area] mL/min/{1.73_m2} Normal >60 [facility] Comment on above: Order Comment: No: D o not add to previous draw Performed By: #### 1 69, 82765 #### [facility] [address] [place] [address], [place] Glucose [Mass/Vol] 63 mg/dL Low 70-100 [facility] Comment on above: Order Comment: No: D o not add to previous draw Performed By: #### 1 69, 83331 #### [facility] [address] [place] [address], [place] Potassium [Moles/Vol] 3.8 mmol/L Normal 3.5-5.1 [facility] Comment on above: Order Comment: No: D o not add to previous draw Performed By: #### 1 69, 86180 #### [facility] [address] [place] [address], [place] Sodium [Moles/Vol] 139 mmol/L Normal 136-145 [facility] Comment on above: Order Comment: No: D o not add to previous draw Performed By: #### 1 69, 71729 #### [facility] [address] [place] [address], [place] Urea nitrogen [Mass/Vol] 24 mg/dL Normal 7-25 [facility] Comment on above: Order Comment: No: D o not add to previous draw Performed By: #### 1 69, 55305 #### [facility] [address] [place] [address], [place] CBC COMPLETE BLOOD COUNTon 0 05-29-2021 Erythrocyte distribution width (RBC) [Ratio] 13.0 % Normal 11.5-15.0 [facility] Comment on above: Order Comment: No: D o not add to previous draw Performed By: #### 0 0071, 18731, 62788 #### [facility] [address] [place] [address], [facility] Hematocrit (Bld) [Volume fraction] 35.3 % Low 39.0-50.0 [facility] Comment on above: Order Comment: No: D o not add to previous draw Performed By: #### 0 0071, , 18860 #### [facility] [address] [place] [address], [facility] Hemoglobin (Bld) [Mass/Vol] 11.5 g/dL Low 13.0-17.0 [facility] Comment on above: Order Comment: No: D o not add to previous draw Performed By: #### 0 0071, , 56597 #### [facility] [address] [place] [address], [place] MCH (RBC) [Entitic mass] 32.8 pg Normal 27.0-33.0 [facility] Comment on above: Order Comment: No: D o not add to previous draw Performed By: #### 0 0071, , 94720 #### [facility] [address] [place] [address], [facility] MCHC (RBC) [Mass/Vol] 32.6 g/dL Normal 32.0-35.0 [facility] Comment on above: Order Comment: No: D o not add to previous draw Performed By: #### 0 0071, , 26155 #### [facility] [address] [place] [address], [place] MCV (RBC) [Entitic vol] 100.6 fL High 82.0-98.0 [facility] Comment on above: Order Comment: No: D o not add to previous draw Performed By: #### 0 0071, , 13986 #### [facility] [address] [place] [address], [facility] Nucleated RBC/100 WBC (Bld) [Ratio] 0 % Normal 0-0 [facility] Comment on above: Order Comment: No: D o not add to previous draw Performed By: #### 0 0071, 62823, 53965 #### [facility] [address] [place] [address], [facility] PLAT CNT 325 10*3/uL Normal 150-400 [facility] Comment on above: Order Comment: No: D o not add to previous draw Performed By: #### 0 0071, 78084, 35209 #### [facility] [address] [place] [address], [facility] RBC (Bld) [#/Vol] 3.51 10*6/uL Low 4.20-5.70 [facility] Comment on above: Order Comment: No: D o not add to previous draw Performed By: #### 0 0071, 75466, 92705 #### [facility] [address] [place] [address], [facility] WBC (Bld) [#/Vol] 7.96 10*3/uL Normal 4.00-10.60 [facility] Comment on above: Order Comment: No: D o not add to previous draw Performed By: #### 0 0071, 70027, 15014 #### [facility] [address] [facility] [place] [address], [facility] MAGNESIUM BLOODon 05-29-2021 Magnesium [Mass/Vol] 1.8 mg/dL Low 1.9-2.7 [facility] Comment on above: Order Comment: No: D o not add to previous draw Performed By: #### 1 0070, 89586 #### [facility] [address] [place] [id number], [facility] POC GLUCOSE LABon 05-29-2021 Glucose [Mass/Vol] 167 mg/dL High 70-100 [facility] Comment on above: Performed By: #### 0 0071, 03227, 11020 #### [place] [address], [facility] ABDOMEN 1 VWon 05-28-2021 ABDOMEN 1 VW [facility] Department of Radiology [address] [place] [id number] Patient Name: ALEJO FLOYD : 1960 Sex: M Age: Race: Black Pt. Location: [facility] Patient Status: I Ordered Date: 05/28/2021 [...] obstruction. Electronically signed: Kenzie Chi. Transcribed by: [email or web address], User Resident: Electronically Signed by: KENZIE CHI @ 05/28/2021 11:00 AM Normal [facility] Comment on above: Order Comment: No: D o not add to previous draw BASIC METABOLIC PANELon 05-05 Calcium [Mass/Vol] 9.0 mg/dL Normal 8.6-10.3 [facility] Comment on above: Order Comment: No: D o not add to previous draw Performed By: #### 0 0071, 67894, 55365 #### [facility] [address] [place] [address], [place] Chloride [Moles/Vol] 103 mmol/L Normal 98-107 [facility] Comment on above: Order Comment: No: D o not add to previous draw Performed By: #### 0 0071, 52902, 72182 #### [facility] [address] [place] [address], [place] CO2 [Moles/Vol] 19 mmol/L Low 21-31 [facility] Comment on above: Order Comment: No: D o not add to previous draw Performed By: #### 0 0071, 82376, 21120 #### [facility] [address] [place] [address], [place] Creatinine [Mass/Vol] 1.38 mg/dL High 0.70-1.30 [facility] Comment on above: Order Comment: No: D o not add to previous draw Performed By: #### 0 0071, 02212, 62756 #### [facility] [address] [place] [address], [place] eGFR- non- 53 ml/min/1.73sq m Abnormal >60 [facility] Comment on above: Order Comment: No: D o not add to previous draw Performed By: #### 0 0071, 73173, 44955 #### [facility] [address] [place] [address], [place] GFR/1.73 sq M.predicted among blacks MDRD (S/P/Bld) [Vol rate/Area] mL/min/{1.73_m2} Normal >60 [facility] Comment on above: Order Comment: No: D o not add to previous draw Performed By: #### 0 0071, 77026, 15490 #### [facility] [address] [place] [address], [place] Glucose [Mass/Vol] 79 mg/dL Normal 70-100 [facility] Comment on above: Order Comment: No: D o not add to previous draw Performed By: #### 0 0071, 51760, 84099 #### [facility] [address] [place] [address], [place] Potassium [Moles/Vol] 3.9 mmol/L Normal 3.5-5.1 [facility] Comment on above: Order Comment: No: D o not add to previous draw Performed By: #### 0 0071, 70401, 00696 #### [facility] [address] [place] [address], [place] Sodium [Moles/Vol] 138 mmol/L Normal 136-145 [facility] Comment on above: Order Comment: No: D o not add to previous draw Performed By: #### 0 0071, 28383, 78890 #### [facility] [address] [place] [address], [place] Urea nitrogen [Mass/Vol] 38 mg/dL High 7-25 [facility] Comment on above: Order Comment: No: D o not add to previous draw Performed By: #### 0 0071, 57261, 89037 #### [facility] [address] [place] [address], [place] CBC W/DIFFon 05-28-2021 ABS NEUTROPHILS 5.9 10*3/uL Normal 1.6-7.6 [facility] Comment on above: Order Comment: No: D o not add to previous draw Performed By: #### 0 0071, 33479, 32613 #### [facility] [address] [place] [address], [facility] ANISO Moderate Normal [facility] Comment on above: Order Comment: No: D o not add to previous draw Performed By: #### 0 0071, 73826, 25501 #### [facility] [address] [place] [address], [facility] Basophils (Bld) [#/Vol] 0.0 10*3/uL Normal 0.0-0.2 [facility] Comment on above: Order Comment: No: D o not add to previous draw Performed By: #### 0 0071, 53056, 18293 #### [facility] [address] [facility] [place] [address], [facility] Basophils/100 WBC (Bld) 0.0 % Normal 0.0-1.0 [facility] Comment on above: Order Comment: No: D o not add to previous draw Performed By: #### 0 0071, , 85238 #### [facility] [address] [place] [address], [facility] Eosinophils (Bld) [#/Vol] 0.0 10*3/uL Normal 0.0-0.5 [facility] Comment on above: Order Comment: No: D o not add to previous draw Performed By: #### 0 0071, 51071, 49425 #### [facility] [address] [place] [place] [address], [facility] Eosinophils/100 WBC (Bld) 0.0 % Normal 0.0-6.0 [facility] Comment on above: Order Comment: No: D o not add to previous draw Performed By: #### 0 0071, 04952, 97071 #### [facility] [address] [place] [place] [address], [place] Erythrocyte distribution width (RBC) [Ratio] 13.0 % Normal 11.5-15.0 [facility] Comment on above: Order Comment: No: D o not add to previous draw Performed By: #### 0 0071, 21995, 05981 #### [facility] [address] [place] [address], [place] GIANT PLATELETS Present Normal [facility] Comment on above: Order Comment: No: D o not add to previous draw Performed By: #### 0 0071, 65434, 22189 #### [facility] [address] [place] [address], [place] Hematocrit (Bld) [Volume fraction] 40.4 % Normal 39.0-50.0 [facility] Comment on above: Order Comment: No: D o not add to previous draw Performed By: #### 0 0071, 30813, 60106 #### [facility] [address] [place] [address], [place] Hemoglobin (Bld) [Mass/Vol] 12.7 g/dL Low 13.0-17.0 [facility] Comment on above: Order Comment: No: D o not add to previous draw Performed By: #### 0 0071, 71416, 01600 #### [facility] [address] [place] [address], [place] Lymphocytes (Bld) [#/Vol] 1.7 10*3/uL Normal 1.2-4.0 [facility] Comment on above: Order Comment: No: D o not add to previous draw Performed By: #### 0 0071, 02816, 44039 #### [facility] [address] [place] [address], [place] Lymphocytes/100 WBC (Bld) 18.4 % Low 20.0-45.0 [facility] Comment on above: Order Comment: No: D o not add to previous draw Performed By: #### 0 0071, 61451, 50549 #### [facility] [address] [place] [address], [place] MACRO Moderate Normal [facility] Comment on above: Order Comment: No: D o not add to previous draw Performed By: #### 0 0071, 69501, 11137 #### [facility] [address] [place] [address], [facility] MCH (RBC) [Entitic mass] 32.6 pg Normal 27.0-33.0 [facility] Comment on above: Order Comment: No: D o not add to previous draw Performed By: #### 0 0071, 77383, 46550 #### [facility] [address] [place] [address], [facility] MCHC (RBC) [Mass/Vol] 31.4 g/dL Low 32.0-35.0 [facility] Comment on above: Order Comment: No: D o not add to previous draw Performed By: #### 0 0071, , 32333 #### [facility] [address] [place] [address], [facility] MCV (RBC) [Entitic vol] 103.9 fL High 82.0-98.0 [facility] Comment on above: Order Comment: No: D o not add to previous draw Performed By: #### 0 0071, , 05284 #### [facility] [address] [place] [address], [facility] Monocytes (Bld) [#/Vol] 1.5 10*3/uL High 0.1-1.0 [facility] Comment on above: Order Comment: No: D o not add to previous draw Performed By: #### 0 0071, , 65348 #### [facility] [address] [place] [address], [facility] MONOS 16.5 % High 5.0-12.0 [facility] Comment on above: Order Comment: No: D o not add to previous draw Performed By: #### 0 0071, 43630, 32107 #### [facility] [address] [place] [address], [place] MYELOS 1.8 % High 0.0-0.0 [facility] Comment on above: Order Comment: No: D o not add to previous draw Performed By: #### 0 0071, 44476, 13955 #### [facility] [address] [place] [address], [facility] Neutrophils/100 WBC (Bld) 63.3 % Normal 40.0-72.0 [facility] Comment on above: Order Comment: No: D o not add to previous draw Performed By: #### 0 0071, 00540, 24691 #### [facility] [address] [place] [address], [place] Nucleated RBC/100 WBC (Bld) [Ratio] 0 % Normal 0-0 [facility] Comment on above: Order Comment: No: D o not add to previous draw Performed By: #### 0 0071, 15631, 29037 #### [facility] [address] [place] [address], [place] PLAT CNT 353 10*3/uL Normal 150-400 [facility] Comment on above: Order Comment: No: D o not add to previous draw Performed By: #### 0 0071, 66239, 82140 #### [facility] [address] [facility] [place] [address], [facility] RBC (Bld) [#/Vol] 3.89 10*6/uL Low 4.20-5.70 [facility] Comment on above: Order Comment: No: D o not add to previous draw Performed By: #### 0 0071, 17743, 14657 #### [facility] [address] [place] [address], [place] WBC (Bld) [#/Vol] 9.26 10*3/uL Normal 4.00-10.60 [facility] Comment on above: Order Comment: No: D o not add to previous draw Performed By: #### 0 0071, 92838, 95766 #### [facility] [address] [place] [address], [place] ABS IMM GRANS 0.1 10*3/uL Normal 0.0-0.2 [facility] Comment on above: Performed By: #### 0 0071, 44129, 99888 #### [facility] [address] [place] [address], [facility] ABS NEUTROPHILS 5.5 10*3/uL Normal 1.6-7.6 [facility] Comment on above: Performed By: #### 0 0071, , 75380 #### [facility] [address] [place] [address], [facility] Basophils (Bld) [#/Vol] 0.0 10*3/uL Normal 0.0-0.2 [facility] Comment on above: Performed By: #### 0 007, , 40716 #### [facility] [address] [place] [address], [facility] Basophils/100 WBC (Bld) 0.3 % Normal 0.0-1.0 [facility] Comment on above: Performed By: #### 0 0071, , 97105 #### [facility] [address] [place] [address], [facility] Eosinophils (Bld) [#/Vol] 0.0 10*3/uL Normal 0.0-0.5 [facility] Comment on above: Performed By: #### 0 007, , 14414 #### [facility] [address] [facility] [place] [address], [facility] Eosinophils/100 WBC (Bld) 0.5 % Normal 0.0-6.0 [facility] Comment on above: Performed By: #### 0 0071, , 84166 #### [facility] [address] [place] [address], [facility] Erythrocyte distribution width (RBC) [Ratio] 12.8 % Normal 11.5-15.0 [facility] Comment on above: Performed By: #### 0 0071, , 34274 #### [facility] [address] [place] [address], [facility] Hematocrit (Bld) [Volume fraction] 39.5 % Normal 39.0-50.0 [facility] Comment on above: Performed By: #### 0 0071, , 76054 #### [facility] [address] [place] [address], [facility] Hemoglobin (Bld) [Mass/Vol] 12.5 g/dL Low 13.0-17.0 [facility] Comment on above: Performed By: #### 0 0071, , 11763 #### [facility] [address] [facility] [place] [address], [facility] IMMATURE GRANS 0.6 % Normal 0.0-1.0 [facility] Comment on above: Performed By: #### 0 007, , 35228 #### [facility] [address] [place] [address], [facility] Lymphocytes (Bld) [#/Vol] 1.3 10*3/uL Normal 1.2-4.0 [facility] Comment on above: Performed By: #### 0 007, , 40253 #### [facility] [address] [facility] [place] [address], [facility] Lymphocytes/100 WBC (Bld) 15.4 % Low 20.0-45.0 [facility] Comment on above: Performed By: #### 0 0071, , 38420 #### [facility] [address] [place] [address], [facility] MCH (RBC) [Entitic mass] 32.9 pg Normal 27.0-33.0 [facility] Comment on above: Performed By: #### 0 0071, , 44084 #### [facility] [address] [place] [address], [facility] MCHC (RBC) [Mass/Vol] 31.6 g/dL Low 32.0-35.0 [facility] Comment on above: Performed By: #### 0 0071, 13154, 38941 #### [facility] [address] MCV (RBC) [Entitic vol] 103.9 fL High 82.0-98.0 [facility] Comment on above: Performed By: #### 0 0071, 44633, 55336 #### [facility] [address] Monocytes (Bld) [#/Vol] 1.7 10*3/uL High 0.1-1.0 [facility] Comment on above: Performed By: #### 0 0071, 22201, 97004 #### [facility] [address] MONOS 19.8 % High 5.0-12.0 [facility] Comment on above: Performed By: #### 0 007, , 09279 #### [facility] [address] Neutrophils/100 WBC (Bld) 63.4 % Normal 40.0-72.0 [facility] Comment on above: Performed By: #### 0 0071, 01678, 63216 #### [facility] [address] Nucleated RBC/100 WBC (Bld) [Ratio] 0 % Normal 0-0 [facility] Comment on above: Performed By: #### 0 0071, 93150, 92656 #### [facility] [address] [place] [address], [facility] PLAT CNT 330 10*3/uL Normal 150-400 [facility] Comment on above: Performed By: #### 0 0071, 80958, 17801 #### [facility] [address] RBC (Bld) [#/Vol] 3.80 10*6/uL Low 4.20-5.70 [facility] Comment on above: Performed By: #### 0 0071, 06324, 62408 #### [facility] [address] [facility] [place] [address], [facility] WBC (Bld) [#/Vol] 8.68 10*3/uL Normal 4.00-10.60 [facility] Comment on above: Performed By: #### 0 0071, 67572, 03690 #### [facility] [address] COMP METABOLIC PANELon 05-28 Albumin [Mass/Vol] 4.1 g/dL Normal 3.5-5.7 [facility] Comment on above: Performed By: #### 1 0070 #### [facility] [address] ALKALINE PHOSPH 95 IU/L Normal 34-104 [facility] Comment on above: Performed By: #### 1 0070 #### [facility] [address] ALT [Catalytic activity/Vol] 14 U/L Normal 7-52 [facility] Comment on above: Performed By: #### 1 0070 #### [facility] [address] [facility]. [address] AST [Catalytic activity/Vol] 15 U/L Normal 13-39 [facility] Comment on above: Performed By: #### 1 0070 #### [facility] [address] Bilirubin [Mass/Vol] 1.0 mg/dL Normal 0.3-1.0 [facility] Comment on above: Performed By: #### 1 0070 #### [facility] [address] [place] [address], [place] Calcium [Mass/Vol] 9.1 mg/dL Normal 8.6-10.3 [facility] Comment on above: Performed By: #### 1 0070 #### [facility] [address] [place] [address], [place] Chloride [Moles/Vol] 102 mmol/L Normal 98-107 [facility] Comment on above: Performed By: #### 1 0070 #### [facility] [address] [place] [address], [place] CO2 [Moles/Vol] 22 mmol/L Normal 21-31 [facility] Comment on above: Performed By: #### 1 0070 #### [facility] [address] [place] [address], [place] Creatinine [Mass/Vol] 1.51 mg/dL High 0.70-1.30 [facility] Comment on above: Performed By: #### 1 0070 #### [facility] [address] [place] [address], [place] eGFR- 57 ml/min/1.73sq m Abnormal >60 [facility] Comment on above: Performed By: #### 1 0070 #### [facility] [address] [place] [address], [place] eGFR- non- 47 ml/min/1.73sq m Abnormal >60 [facility] Comment on above: Performed By: #### 1 0070 #### [facility] [address] [place] [address], [place] Glucose [Mass/Vol] 84 mg/dL Normal 70-100 [facility] Comment on above: Performed By: #### 1 0070 #### [facility] [address] [place] [address], [place] Potassium [Moles/Vol] 3.9 mmol/L Normal 3.5-5.1 [facility] Comment on above: Performed By: #### 1 0070 #### [facility] [address] [place] [address], [facility] Protein [Mass/Vol] 7.2 g/dL Normal 6.0-8.3 [facility] Comment on above: Performed By: #### 1 0070 #### [facility] [address] [place] [address], [facility] Sodium [Moles/Vol] 139 mmol/L Normal 136-145 [facility] Comment on above: Performed By: #### 1 0070 #### [facility] [address] [place] [address], [facility] Urea nitrogen [Mass/Vol] 40 mg/dL High 7-25 [facility] Comment on above: Performed By: #### 1 0070 #### [facility] [address] [place] [address], [facility] LACTATE WITH REFLEXon 2021 Lactate [Moles/Vol] 0.6 mmol/L Normal .5-2.2 [facility] Comment on above: Performed By: #### 3 1414 #### [facility] [address] [place] [address], [facility] MAGNESIUM BLOODon 05-28-2021 Magnesium [Mass/Vol] 2.0 mg/dL Normal 1.9-2.7 [facility] Comment on above: Order Comment: No: D o not add to previous draw Performed By: #### 0 0071, 10100, 22398 #### [facility] [address] [place] [address], [place] PHOSPHORUS BLOODon Phosphate [Mass/Vol] 3.2 mg/dL Normal 2.5-5.0 [facility] Comment on above: Order Comment: No: D o not add to previous draw Performed By: #### 0 0071, 55119, 92366 #### [facility] [address] [place] [address], [facility] POC SARS COV2 ANTIGEN NEGATI VEon 05-28-2021 POC SARS COV2 ANTIGEN NEG Negative Normal NEGATIVE [facility] Comment on above: Result Comment: Nega [...] antigen from SARS-CoV-2 in direct nasopharyngeal swab (BALER) specimens from individuals who are suspected of [...] of Accreditation. Performed By: #### 0 0071, 44978, 64197 #### [facility] [address] [facility] [place] [address], [facility] GLUCOSE, BLOOD (POC)on 04-05 Glucose [Mass/Vol] 102 mg/dL Abnormal 74 - 99 mg/dL [facility] Comment on above: Location:[facility], [address] [place] [address] , [place], [place], [address] The Accu-Chek Inform II glucose meter has [...] Interpretation and review of laboratory results Abnormal [facility] PET+CT Guidance for localiza tion of [...] any questions regarding this interpretation, please call [phone]. If you are unable to reach us at the number above, please feel free to contact [facility] eRadiology at [phone]. 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 HEAD AND [...] any questions regarding this interpretation, please call [phone]. If you are unable to reach us at the number above, please feel free to contact [facility] eRadiology at [phone]. [facility] Radiology Study observation (narrative) [facility] PET+CT Guidance for localiza tion of tumor of Skull base to mid-thigh-- W [id number] IVOrdered By: Ccf Provider on 04-05-2021 [facility] Basic Metabolic,Non-Fastingo n 03-08-2018 Creatinine mass conc 0.98 mg/dL Normal 0.70-1.30 [facility] Comment on above: Order Comment: Is Pa tient Fasting? Yes Performed By: #### L 400.0152, L400.2200, L400.5100 ####[facility] ([facility])[address], [place] [phone] Nivar, MD GFR/1.73 sq M predicted among non-blacks MDRD vol rate/area (S/P/Bld) mL/min/{1.73_m2} Normal [facility] Comment on above: Order Comment: Is Pa tient Fasting? Yes Result Comment: [facility] Fancier usha Kidney Disease stages by NKDFStage eGFR I >90 II 60-89 III 30-59 IV 15-29 V <15 or dialysisAGE(years) AVERAGE GFR 50-59 93 ml/min/1.73 square metersNote:This result is normalized to 1.73 square meter body surface area. Height and weight are not factored. Performed By: #### L 400.0152, L400.2200, L400.5100 ####[facility] ([facility])[address], [place] [phone] Nivar, MD Anion gap 3 molar conc 8 mmol/L Normal 4-12 [facility] Comment on above: Order Comment: Is Pa tient Fasting? Yes Performed By: #### L 400.0152, L400.2200, L400.5100 ####[facility] ([facility])[address] [phone] Nivar, MD Calcium mass conc 8.8 mg/dL Normal 8.8-10.5 [facility] Comment on above: Order Comment: Is Pa tient Fasting? Yes Performed By: #### L 400.0152, L400.2200, L400.5100 ####[facility] ([facility])[address] [phone] Nivar, MD Chloride molar conc 103 mmol/L Normal 101-111 [facility] Comment on above: Order Comment: Is Pa tient Fasting? Yes Performed By: #### L 400.0152, L400.2200, L400.5100 ####[facility] ([facility])[address] [phone] Nivar, MD CO2 molar conc 22 mmol/L Normal 21-32 [facility] Comment on above: Order Comment: Is Pa tient Fasting? Yes Performed By: #### L 400.0152, L400.2200, L400.5100 ####[facility] ([facility])[address] [phone] Nivar, MD Glucose mass conc 106 mg/dL Normal 70-110 [facility] Comment on above: Order Comment: Is Pa tient Fasting? Yes Result Comment: *Thi s reference range applies to fasting specimens only. Performed By: #### L 400.0152, L400.2200, L400.5100 ####[facility] ([facility])[address] [phone] Nivar, MD Potassium molar conc 4.4 mmol/L Normal 3.6-5.0 [facility] Comment on above: Order Comment: Is Pa tient Fasting? Yes Performed By: #### L 400.0152, L400.2200, L400.5100 ####[facility] ([facility])[address], [place] [phone] Nivar, MD Sodium molar conc 133 mmol/L Low 135-145 [facility] Comment on above: Order Comment: Is Pa tient Fasting? Yes Performed By: #### L 400.0152, L400.2200, L400.5100 ####[facility] ([facility])[address], [place] [phone] Nivar, MD Urea nitrogen mass conc 17 mg/dL Normal 7-20 [facility] Comment on above: Order Comment: Is Pa tient Fasting? Yes Performed By: #### L 400.0152, L400.2200, L400.5100 ####[facility] ([facility])[address] [phone] Nivar, MD CBC with Differentialon 11-0 Abs Baso Count 0 /cmm Normal 0-200 [facility] Comment on above: Performed By: #### L 400.0152, L400.2200, L400.5100 ####[facility] ([facility])[address] [phone] Nivar, MD Abs Eos Count 200 /cmm Normal 0-500 [facility] Comment on above: Performed By: #### L 400.0152, L400.2200, L400.5100 ####[facility] ([facility])[address] [phone] Nivar, MD Abs [place] Count 1000 /cmm High 0-800 [facility] Comment on above: Performed By: #### L 400.0152, L400.2200, L400.5100 ####[facility] ([facility])[address] [phone] Nivar, MD Abs Neut Count 5000 /cmm Normal 9206-0756 [facility] Comment on above: Performed By: #### L 400.0152, L400.2200, L400.5100 ####[facility] ([facility])[address] [phone] Nivar, MD Basophils Auto #/vol (Bld) 0.5 % Normal 0-2 [facility] Comment on above: Performed By: #### L 400.0152, L400.2200, L400.5100 ####[facility] ([facility])[address] [phone] Nivar, MD EOS-Auto Diff 2.2 % Normal 0-6 [facility] Comment on above: Performed By: #### L 400.0152, L400.2200, L400.5100 ####[facility] ([facility])[address] [phone] Nivar, MD Erythrocyte distribution width Auto Ratio (RBC) 17.7 % High 12.0-16.0 [facility] Comment on above: Performed By: #### L 400.0152, L400.2200, L400.5100 ####[facility] ([facility])[address] [phone] Nivar, MD Hematocrit Auto Volume Fraction (Bld) 27.2 % Low 40.0-49.0 [facility] Comment on above: Performed By: #### L 400.0152, L400.2200, L400.5100 ####[facility] ([facility])[address] [phone] Nivar, MD Hemoglobin mass conc (Bld) 8.9 g/dL Low 13.5-16.5 [facility] Comment on above: Performed By: #### L 400.0152, L400.2200, L400.5100 ####[facility] ([facility])[address] [place], [place] [phone] Nivar, MD Lymphocytes Auto #/vol (Bld) 2100 /cmm Normal 0600-1056 [facility] Comment on above: Performed By: #### L 400.0152, L400.2200, L400.5100 ####[facility] ([facility])[address] [place] [phone] Nivar, MD Lymphocytes/100 WBC Auto (Bld) 25.7 % Normal 15-45 [facility] Comment on above: Performed By: #### L 400.0152, L400.2200, L400.5100 ####[facility] ([facility])[address] [place], [place] [phone] Nivar, MD MCH Auto Entitic mass (RBC) 30.0 pg Normal 27.5-33.0 [facility] Comment on above: Performed By: #### L 400.0152, L400.2200, L400.5100 ####[facility] ([facility])[address] [place] [phone] Nivar, MD MCHC Auto mass conc (RBC) 32.6 g/dL Low 33.0-36.0 [facility] Comment on above: Performed By: #### L 400.0152, L400.2200, L400.5100 ####[facility] ([facility])[address] [place], [place] [phone] Nivar, MD MCV Auto Entitic volume (RBC) 92.2 CU SOPHIE Normal 80-97 [facility] Comment on above: Performed By: #### L 400.0152, L400.2200, L400.5100 ####[facility] ([facility])[address], [place] [phone] Nivar, MD [place]- Auto Diff 11.6 % High 2-10 [facility] Comment on above: Performed By: #### L 400.0152, L400.2200, L400.5100 ####[facility] ([facility])[address], [place] [phone] Nivar, MD Neut-Auto Diff 60.0 % Normal 40-70 [facility] Comment on above: Performed By: #### L 400.0152, L400.2200, L400.5100 ####[facility] ([facility])[address], [place] [phone] Nivar, MD NRBC-Auto 0.1 /100 WBC Normal <1 [facility] Comment on above: Performed By: #### L 400.0152, L400.2200, L400.5100 ####[facility] ([facility])[address], [place] [phone] Nivar, MD Platelets Auto #/vol (Bld) 444 th/cmm High 150-400 [facility] Comment on above: Performed By: #### L 400.0152, L400.2200, L400.5100 ####[facility] ([facility])[address], [place] [phone] Nivar, MD RBC Auto #/vol (Bld) 2.95 mil/cmm Low 4.50-6.00 [facility] Comment on above: Performed By: #### L 400.0152, L400.2200, L400.5100 ####[facility] ([facility])[address], [place] [phone] Nivar, MD WBC Auto #/vol (Bld) 8.4 th/cmm Normal 4.4-10.5 [facility] Comment on above: Performed By: #### L 400.0152, L400.2200, L400.5100 ####[facility] ([facility])[address], [place] [phone] Nivar, MD Magnesiumon 03-08-2018 Magnesium mass conc 1.7 mg/dL Low 1.8-2.5 [facility] Comment on above: Order Comment: Is Pa tient Fasting? Yes Performed By: #### L 400.0152, L400.2200, L400.5100 ####[facility] ([facility])[address] [phone] Nivar, MD Prealbuminon 03-08-2018 Prealbumin mass conc 19.5 mg/dL Normal 16.0-38.0 [facility] Comment on above: Order Comment: Is Pa tient Fasting? Yes Performed By: #### L 400.0152, L400.2200, L400.5100 ####[facility] ([facility])[address] [phone] Nivar, MD Triglycerideson 03-08-2018 Triglyceride mass conc 96 mg/dL Normal <150 [facility] Comment on above: Order Comment: Is Pa tient Fasting? Yes Performed By: #### L 400.0152, L400.2200, L400.5100 ####[facility] ([facility])[address], [place] [phone] Nivar, MD Basic Metabolic,Non-Fastingo n 03-07-2018 Anion gap 3 molar conc 7 mmol/L Normal 4-12 [facility] Comment on above: Performed By: #### L 400.0152, L400.2200, L400.5100 ####[facility] ([facility])[address], [place] [phone] Nivar, MD Calcium mass conc 8.5 mg/dL Low 8.8-10.5 [facility] Comment on above: Performed By: #### L 400.0152, L400.2200, L400.5100 ####[facility] ([facility])[address] [place] [phone] Nivar, MD Chloride molar conc 101 mmol/L Normal 101-111 [facility] Comment on above: Performed By: #### L 400.0152, L400.2200, L400.5100 ####[facility] ([facility])[address] [place] [phone] Nivar, MD CO2 molar conc 23 mmol/L Normal 21-32 [facility] Comment on above: Performed By: #### L 400.0152, L400.2200, L400.5100 ####[facility] ([facility])[address] [place] [phone] Nivar, MD Creatinine mass conc 0.86 mg/dL Normal 0.70-1.30 [facility] Comment on above: Performed By: #### L 400.0152, L400.2200, L400.5100 ####[facility] ([facility])[address] [place] [phone] Nivar, MD GFR/1.73 sq M predicted among non-blacks MDRD vol rate/area (S/P/Bld) mL/min/{1.73_m2} Normal [facility] Comment on above: Result Comment: [employer] usha Kidney Disease stages by NKDFStage eGFR I >90 II 60-89 III 30-59 IV 15-29 V <15 or dialysisAGE(years) AVERAGE GFR 50-59 93 ml/min/1.73 square metersNote:This result is normalized to 1.73 square meter body surface area. Height and weight are not factored. Performed By: #### L 400.0152, L400.2200, L400.5100 ####[facility] ([facility])[address] [phone] Nivar, MD Glucose mass conc 104 mg/dL Normal 70-110 [facility] Comment on above: Result Comment: *Thi s reference range applies to fasting specimens only. Performed By: #### L 400.0152, L400.2200, L400.5100 ####[facility] ([facility])[address] [place] [phone] Nivar, MD Potassium molar conc 4.2 mmol/L Normal 3.6-5.0 [facility] Comment on above: Performed By: #### L 400.0152, L400.2200, L400.5100 ####[facility] ([facility])[address] [phone] Nivar, MD Sodium molar conc 131 mmol/L Low 135-145 [facility] Comment on above: Performed By: #### L 400.0152, L400.2200, L400.5100 ####[facility] ([facility])[address] [phone] Nivar, MD Urea nitrogen mass conc 16 mg/dL Normal 7-20 [facility] Comment on above: Performed By: #### L 400.0152, L400.2200, L400.5100 ####[facility] ([facility])[address] [place] [phone] Nivar, MD Magnesiumon 03-07-2018 Magnesium mass conc 1.7 mg/dL Low 1.8-2.5 [facility] Comment on above: Performed By: #### L 400.0152, L400.2200, L400.5100 ####[facility] ([facility])[address] [phone] Nivar, MD Basic Metabolic,Non-Fastingo n 03-06-2018 Anion gap 3 molar conc 9 mmol/L Normal 4-12 [facility] Comment on above: Performed By: #### L 400.0202, L400.0302, L400.2200, L400.2500, L400.5100, L404.6500 ####[facility] ([facility])[address], [place] [phone] Nivar, MD Calcium mass conc 8.5 mg/dL Low 8.8-10.5 [facility] Comment on above: Performed By: #### L 400.0202, L400.0302, L400.2200, L400.2500, L400.5100, L404.6500 ####[facility] ([facility])[address], [place] [phone] Nivar, MD Chloride molar conc 99 mmol/L Low 101-111 [facility] Comment on above: Performed By: #### L 400.0202, L400.0302, L400.2200, L400.2500, L400.5100, L404.6500 ####[facility] ([facility])[address] [place], [place] [phone] Nivar, MD CO2 molar conc 23 mmol/L Normal 21-32 [facility] Comment on above: Performed By: #### L 400.0202, L400.0302, L400.2200, L400.2500, L400.5100, L404.6500 ####[facility] ([facility])[address], [place] [phone] Nivar, MD Creatinine mass conc 0.96 mg/dL Normal 0.70-1.30 [facility] Comment on above: Performed By: #### L 400.0202, L400.0302, L400.2200, L400.2500, L400.5100, L404.6500 ####[facility] ([facility])[address] [phone] Nivar, MD GFR/1.73 sq M predicted among non-blacks MDRD vol rate/area (S/P/Bld) mL/min/{1.73_m2} Normal [facility] Comment on above: Result Comment: [facility] usha Kidney Disease stages by NKDFStage eGFR I >90 II 60-89 III 30-59 IV 15-29 V <15 or dialysisAGE(years) AVERAGE GFR 50-59 93 ml/min/1.73 square metersNote:This result is normalized to 1.73 square meter body surface area. Height and weight are not factored. Performed By: #### L 400.0202, L400.0302, L400.2200, L400.2500, L400.5100, L404.6500 ####[facility] ([facility])[address], [place] [phone] Nivar, MD Glucose mass conc 97 mg/dL Normal 70-110 [facility] Comment on above: Result Comment: *Thi s reference range applies to fasting specimens only. Performed By: #### L 400.0202, L400.0302, L400.2200, L400.2500, L400.5100, L404.6500 ####[facility] ([facility])[address] [phone] Nivar, MD Potassium molar conc 4.0 mmol/L Normal 3.6-5.0 [facility] Comment on above: Performed By: #### L 400.0202, L400.0302, L400.2200, L400.2500, L400.5100, L404.6500 ####[facility] ([facility])[address] [phone] Nivar, MD Sodium molar conc 131 mmol/L Low 135-145 [facility] Comment on above: Performed By: #### L 400.0202, L400.0302, L400.2200, L400.2500, L400.5100, L404.6500 ####[facility] ([facility])[address] [place] [phone] Nivar, MD Urea nitrogen mass conc 18 mg/dL Normal 7-20 [facility] Comment on above: Performed By: #### L 400.0202, L400.0302, L400.2200, L400.2500, L400.5100, L404.6500 ####[facility] ([facility])[address] [phone] Nivar, MD Magnesiumon 03-06-2018 Magnesium mass conc 1.7 mg/dL Low 1.8-2.5 [facility] Comment on above: Performed By: #### L 400.0202, L400.0302, L400.2200, L400.2500, L400.5100, L404.6500 ####[facility] ([facility])[address] [place], [place] [phone] Nivar, MD Basic Metabolic,Non-Fastingo n 03-05-2018 Anion gap 3 molar conc 7 mmol/L Normal 4-12 [facility] Comment on above: Performed By: #### L 400.0202, L400.0302, L400.2200, L400.2500, L400.5100, L404.6500 ####[facility] ([facility])[address] [place], [place] [phone] Nivar, MD Calcium mass conc 8.9 mg/dL Normal 8.8-10.5 [facility] Comment on above: Performed By: #### L 400.0202, L400.0302, L400.2200, L400.2500, L400.5100, L404.6500 ####[facility] ([facility])[address] [place] [phone] Nivar, MD Chloride molar conc 101 mmol/L Normal 101-111 [facility] Comment on above: Performed By: #### L 400.0202, L400.0302, L400.2200, L400.2500, L400.5100, L404.6500 ####Main Laboratory ([facility])[address] [place], [place] [phone] Nivar, MD CO2 molar conc 24 mmol/L Normal 21-32 [facility] Comment on above: Performed By: #### L 400.0202, L400.0302, L400.2200, L400.2500, L400.5100, L404.6500 ####Main Laboratory ([facility])[address] [place] [phone] Nivar, MD Creatinine mass conc 1.00 mg/dL Normal 0.70-1.30 [facility] Comment on above: Performed By: #### L 400.0202, L400.0302, L400.2200, L400.2500, L400.5100, L404.6500 ####[facility] ([facility] [facility])[address], [place] [phone] Nivar, MD GFR/1.73 sq M predicted among non-blacks MDRD vol rate/area (S/P/Bld) mL/min/{1.73_m2} Normal [facility] Comment on above: Result Comment: Pigeon Fancier usha Kidney Disease stages by NKDFStage eGFR I >90 II 60-89 III 30-59 IV 15-29 V <15 or dialysisAGE(years) AVERAGE GFR 50-59 93 ml/min/1.73 square metersNote:This result is normalized to 1.73 square meter body surface area. Height and weight are not factored. Performed By: #### L 400.0202, L400.0302, L400.2200, L400.2500, L400.5100, L404.6500 ####[facility] ([facility])[address] [place] [phone] Nivar, MD Glucose mass conc 94 mg/dL Normal 70-110 [facility] Comment on above: Result Comment: *Thi s reference range applies to fasting specimens only. Performed By: #### L 400.0202, L400.0302, L400.2200, L400.2500, L400.5100, L404.6500 ####[facility] ([facility])[address] [place] [phone] Nivar, MD Potassium molar conc 4.2 mmol/L Normal 3.6-5.0 [facility] Comment on above: Performed By: #### L 400.0202, L400.0302, L400.2200, L400.2500, L400.5100, L404.6500 ####[facility] ([facility])[address] [place] [phone] Nivar, MD Sodium molar conc 132 mmol/L Low 135-145 [facility] Comment on above: Performed By: #### L 400.0202, L400.0302, L400.2200, L400.2500, L400.5100, L404.6500 ####[facility] ([facility])[address] [place] [phone] Nivar, MD Urea nitrogen mass conc 18 mg/dL Normal 7-20 [facility] Comment on above: Performed By: #### L 400.0202, L400.0302, L400.2200, L400.2500, L400.5100, L404.6500 ####[facility] ([facility])[address] [place] [phone] Nivar, MD Magnesiumon 03-05-2018 Magnesium mass conc 1.7 mg/dL Low 1.8-2.5 [facility] Comment on above: Performed By: #### L 400.0202, L400.0302, L400.2200, L400.2500, L400.5100, L404.6500 ####[facility] ([facility])[address] [phone] Nivar, MD Basic Metabolic,Non-Fastingo n 03-04-2018 Anion gap 3 molar conc 8 mmol/L Normal 4-12 [facility] Comment on above: Performed By: #### L 400.0202, L400.0302, L400.2200, L400.2500, L400.5100, L404.6500 ####[facility] ([facility])[address] [phone] Nivar, MD Calcium mass conc 8.6 mg/dL Low 8.8-10.5 [facility] Comment on above: Performed By: #### L 400.0202, L400.0302, L400.2200, L400.2500, L400.5100, L404.6500 ####[facility] ([facility])[address] [place] [phone] Nivar, MD Chloride molar conc 102 mmol/L Normal 101-111 [facility] Comment on above: Performed By: #### L 400.0202, L400.0302, L400.2200, L400.2500, L400.5100, L404.6500 ####[facility] ([facility])[address] [place] [phone] Nivar, MD CO2 molar conc 21 mmol/L Normal 21-32 [facility] Comment on above: Performed By: #### L 400.0202, L400.0302, L400.2200, L400.2500, L400.5100, L404.6500 ####[facility] ([facility])[address] [phone] Nivar, MD Creatinine mass conc 0.98 mg/dL Normal 0.70-1.30 [facility] Comment on above: Performed By: #### L 400.0202, L400.0302, L400.2200, L400.2500, L400.5100, L404.6500 ####[facility] ([facility])[address], [place] [phone] Nivar, MD GFR/1.73 sq M predicted among non-blacks MDRD vol rate/area (S/P/Bld) mL/min/{1.73_m2} Normal [facility] Comment on above: Result Comment: Pigeon Fancier usha Kidney Disease stages by NKDFStage eGFR I >90 II 60-89 III 30-59 IV 15-29 V <15 or dialysisAGE(years) AVERAGE GFR 50-59 93 ml/min/1.73 square metersNote:This result is normalized to 1.73 square meter body surface area. Height and weight are not factored. Performed By: #### L 400.0202, L400.0302, L400.2200, L400.2500, L400.5100, L404.6500 ####[facility] ([facility])[address] [place], [place] [phone] Nivar, MD Glucose mass conc 103 mg/dL Normal 70-110 [facility] Comment on above: Result Comment: *Thi s reference range applies to fasting specimens only. Performed By: #### L 400.0202, L400.0302, L400.2200, L400.2500, L400.5100, L404.6500 ####[facility] ([facility])[address] [place] [phone] Nivar, MD Potassium molar conc 4.2 mmol/L Normal 3.6-5.0 [facility] Comment on above: Performed By: #### L 400.0202, L400.0302, L400.2200, L400.2500, L400.5100, L404.6500 ####[facility] ([facility])[address] [place] [phone] Nivar, MD Sodium molar conc 131 mmol/L Low 135-145 [facility] Comment on above: Performed By: #### L 400.0202, L400.0302, L400.2200, L400.2500, L400.5100, L404.6500 ####[facility] ([facility])[address] [place] [phone] Nivar, MD Urea nitrogen mass conc 16 mg/dL Normal 7-20 [facility] Comment on above: Performed By: #### L 400.0202, L400.0302, L400.2200, L400.2500, L400.5100, L404.6500 ####[facility] ([facility])[address] [place] [phone] Nivar, MD Magnesiumon 03-04-2018 Magnesium mass conc 1.8 mg/dL Normal 1.8-2.5 [facility] Comment on above: Performed By: #### L 400.0202, L400.0302, L400.2200, L400.2500, L400.5100, L404.6500 ####[facility] ([facility])[address] [place] [phone] Nivar, MD Phosphoruson 03-04-2018 Phosphate mass conc 4.2 mg/dL Normal 2.4-4.7 [facility] Comment on above: Performed By: #### L 400.0202, L400.0302, L400.2200, L400.2500, L400.5100, L404.6500 ####[facility] ([facility])[address] [place] [phone] Nivar, MD Basic Metabolic,Non-Fastingo n 03-03-2018 Anion gap 3 molar conc 7 mmol/L Normal 4-12 [facility] Comment on above: Performed By: #### L 400.0202, L400.0302, L400.2200, L400.2500, L400.5100, L404.6500 ####[facility] ([facility])[address], [place] [phone] Nivar, MD Calcium mass conc 8.6 mg/dL Low 8.8-10.5 [facility] Comment on above: Performed By: #### L 400.0202, L400.0302, L400.2200, L400.2500, L400.5100, L404.6500 ####[facility] ([facility])[address] [place], [place] [phone] Nivar, MD Chloride molar conc 103 mmol/L Normal 101-111 [facility] Comment on above: Performed By: #### L 400.0202, L400.0302, L400.2200, L400.2500, L400.5100, L404.6500 ####[facility] ([facility])[address] [place], [place] [phone] Nivar, MD CO2 molar conc 23 mmol/L Normal 21-32 [facility] Comment on above: Performed By: #### L 400.0202, L400.0302, L400.2200, L400.2500, L400.5100, L404.6500 ####[facility] ([facility])[address], [place] [phone] Nivar, MD Creatinine mass conc 1.00 mg/dL Normal 0.70-1.30 [facility] Comment on above: Performed By: #### L 400.0202, L400.0302, L400.2200, L400.2500, L400.5100, L404.6500 ####[facility] ([facility])[address], [place] [phone] Nivar, MD GFR/1.73 sq M predicted among non-blacks MDRD vol rate/area (S/P/Bld) mL/min/{1.73_m2} Normal [facility] Comment on above: Result Comment: Pigeon Fancier usha Kidney Disease stages by NKDFStage eGFR I >90 II 60-89 III 30-59 IV 15-29 V <15 or dialysisAGE(years) AVERAGE GFR 50-59 93 ml/min/1.73 square metersNote:This result is normalized to 1.73 square meter body surface area. Height and weight are not factored. Performed By: #### L 400.0202, L400.0302, L400.2200, L400.2500, L400.5100, L404.6500 ####[facility] ([facility])[address] [place] [phone] Nivar, MD Glucose mass conc 104 mg/dL Normal 70-110 [facility] Comment on above: Result Comment: *Thi s reference range applies to fasting specimens only. Performed By: #### L 400.0202, L400.0302, L400.2200, L400.2500, L400.5100, L404.6500 ####[facility] ([facility])[address] [place], [place] [phone] Nivar, MD Potassium molar conc 4.1 mmol/L Normal 3.6-5.0 [facility] Comment on above: Performed By: #### L 400.0202, L400.0302, L400.2200, L400.2500, L400.5100, L404.6500 ####[facility] ([facility])[address], [place] [phone] Nivar, MD Sodium molar conc 133 mmol/L Low 135-145 [facility] Comment on above: Performed By: #### L 400.0202, L400.0302, L400.2200, L400.2500, L400.5100, L404.6500 ####[facility] ([facility])[address] [place] [phone] Nivar, MD Urea nitrogen mass conc 20 mg/dL Normal 7-20 [facility] Comment on above: Performed By: #### L 400.0202, L400.0302, L400.2200, L400.2500, L400.5100, L404.6500 ####[facility] ([facility])[address] [place], [place] [phone] Nivar, MD Magnesiumon 03-03-2018 Magnesium mass conc 1.8 mg/dL Normal 1.8-2.5 [facility] Comment on above: Performed By: #### L 400.0202, L400.0302, L400.2200, L400.2500, L400.5100, L404.6500 ####[facility] ([facility])[address], [place] [phone] Nivar, MD Basic Metabolic,Non-Fastingo n 03-02-2018 Anion gap 3 molar conc 7 mmol/L Normal 4-12 [facility] Comment on above: Performed By: #### L 400.0202, L400.0302, L400.2200, L400.2500, L400.5100, L404.6500 ####[facility] ([facility])[address] [place], [place] [phone] Nivar, MD Calcium mass conc 8.4 mg/dL Low 8.8-10.5 [facility] Comment on above: Performed By: #### L 400.0202, L400.0302, L400.2200, L400.2500, L400.5100, L404.6500 ####[facility] ([facility])[address] [place] [phone] Nivar, MD Chloride molar conc 104 mmol/L Normal 101-111 [facility] Comment on above: Performed By: #### L 400.0202, L400.0302, L400.2200, L400.2500, L400.5100, L404.6500 ####[facility] ([facility])[address] [phone] Nivar, MD CO2 molar conc 21 mmol/L Normal 21-32 [facility] Comment on above: Performed By: #### L 400.0202, L400.0302, L400.2200, L400.2500, L400.5100, L404.6500 ####[facility] ([facility])[address] [phone] Nivar, MD Creatinine mass conc 1.07 mg/dL Normal 0.70-1.30 [facility] Comment on above: Performed By: #### L 400.0202, L400.0302, L400.2200, L400.2500, L400.5100, L404.6500 ####[facility] ([facility])[address], [place] [phone] Nivar, MD GFR/1.73 sq M predicted among non-blacks MDRD vol rate/area (S/P/Bld) mL/min/{1.73_m2} Normal [facility] Comment on above: Result Comment: Pigeon Fancier usha Kidney Disease stages by NKDFStage eGFR I >90 II 60-89 III 30-59 IV 15-29 V <15 or dialysisAGE(years) AVERAGE GFR 50-59 93 ml/min/1.73 square metersNote:This result is normalized to 1.73 square meter body surface area. Height and weight are not factored. Performed By: #### L 400.0202, L400.0302, L400.2200, L400.2500, L400.5100, L404.6500 ####[facility] ([facility])[address] [place] [phone] Nivar, MD Glucose mass conc 100 mg/dL Normal 70-110 [facility] Comment on above: Result Comment: *Thi s reference range applies to fasting specimens only. Performed By: #### L 400.0202, L400.0302, L400.2200, L400.2500, L400.5100, L404.6500 ####[facility] ([facility])[address] [place] [phone] Nivar, MD Potassium molar conc 3.9 mmol/L Normal 3.6-5.0 [facility] Comment on above: Performed By: #### L 400.0202, L400.0302, L400.2200, L400.2500, L400.5100, L404.6500 ####[facility] ([facility])[address] [place] [phone] Nivar, MD Sodium molar conc 132 mmol/L Low 135-145 [facility] Comment on above: Performed By: #### L 400.0202, L400.0302, L400.2200, L400.2500, L400.5100, L404.6500 ####[facility] ([facility])[address] [place] [phone] Nivar, MD Urea nitrogen mass conc 20 mg/dL Normal 7-20 [facility] Comment on above: Performed By: #### L 400.0202, L400.0302, L400.2200, L400.2500, L400.5100, L404.6500 ####[facility] ([facility])[address] [place] [phone] Nivar, MD Magnesiumon 03-02-2018 Magnesium mass conc 1.7 mg/dL Low 1.8-2.5 [facility] Comment on above: Performed By: #### L 400.0202, L400.0302, L400.2200, L400.2500, L400.5100, L404.6500 ####[facility] ([facility])[address] [place] [phone] Nivar, MD Basic Metabolic,Non-Fastingo n 03-01-2018 Anion gap 3 molar conc 7 mmol/L Normal 4-12 [facility] Comment on above: Performed By: #### L 400.0202, L400.0302, L400.2200, L400.2500, L400.5100, L404.6500 ####[facility] ([facility])[address] [place] [phone] Nivar, MD Calcium mass conc 8.4 mg/dL Low 8.8-10.5 [facility] Comment on above: Performed By: #### L 400.0202, L400.0302, L400.2200, L400.2500, L400.5100, L404.6500 ####[facility] ([facility])[address] [place], [place] [phone] Nivar, MD Chloride molar conc 104 mmol/L Normal 101-111 [facility] Comment on above: Performed By: #### L 400.0202, L400.0302, L400.2200, L400.2500, L400.5100, L404.6500 ####[facility] ([facility])[address] [place], [place] [phone] Nivar, MD CO2 molar conc 21 mmol/L Normal 21-32 [facility] Comment on above: Performed By: #### L 400.0202, L400.0302, L400.2200, L400.2500, L400.5100, L404.6500 ####[facility] ([facility])[address] [place], [place] [phone] Nivar, MD Creatinine mass conc 1.03 mg/dL Normal 0.70-1.30 [facility] Comment on above: Performed By: #### L 400.0202, L400.0302, L400.2200, L400.2500, L400.5100, L404.6500 ####[facility] ([facility])[address] [place] [phone] Nivar, MD GFR/1.73 sq M predicted among non-blacks MDRD vol rate/area (S/P/Bld) mL/min/{1.73_m2} Normal [facility] Comment on above: Result Comment: Pigeon Fancier usha Kidney Disease stages by NKDFStage eGFR I >90 II 60-89 III 30-59 IV 15-29 V <15 or dialysisAGE(years) AVERAGE GFR 50-59 93 ml/min/1.73 square metersNote:This result is normalized to 1.73 square meter body surface area. Height and weight are not factored. Performed By: #### L 400.0202, L400.0302, L400.2200, L400.2500, L400.5100, L404.6500 ####[facility] ([facility])[address] [phone] Nivar, MD Glucose mass conc 85 mg/dL Normal 70-110 [facility] Comment on above: Result Comment: *Thi s reference range applies to fasting specimens only. Performed By: #### L 400.0202, L400.0302, L400.2200, L400.2500, L400.5100, L404.6500 ####[facility] ([facility])[address] [phone] Nivar, MD Potassium molar conc 4.3 mmol/L Normal 3.6-5.0 [facility] Comment on above: Performed By: #### L 400.0202, L400.0302, L400.2200, L400.2500, L400.5100, L404.6500 ####[facility] ([facility])[address] [place] [phone] Nivar, MD Sodium molar conc 132 mmol/L Low 135-145 [facility] Comment on above: Performed By: #### L 400.0202, L400.0302, L400.2200, L400.2500, L400.5100, L404.6500 ####[facility] ([facility])[address] [place] [phone] Nivar, MD Urea nitrogen mass conc 22 mg/dL High 7-20 [facility] Comment on above: Performed By: #### L 400.0202, L400.0302, L400.2200, L400.2500, L400.5100, L404.6500 ####[facility] ([facility])[address] [place] [phone] Nivar, MD CBC with Differentialon 02-02 Abs Baso Count 0 /cmm Normal 0-200 [facility] Comment on above: Performed By: #### L 400.0202, L400.0302, L400.2200, L400.2500, L400.5100, L404.6500 ####[facility] ([facility])[address] [place] [phone] Nivar, MD Abs Eos Count 300 /cmm Normal 0-500 [facility] Comment on above: Performed By: #### L 400.0202, L400.0302, L400.2200, L400.2500, L400.5100, L404.6500 ####[facility] ([facility])[address] [place] [phone] Nivar, MD Abs [place] Count 800 /cmm Normal 0-800 [facility] Comment on above: Performed By: #### L 400.0202, L400.0302, L400.2200, L400.2500, L400.5100, L404.6500 ####[facility] ([facility])[address] [place] [phone] Nivar, MD Abs Neut Count 6400 /cmm Normal 9538-9629 [facility] Comment on above: Performed By: #### L 400.0202, L400.0302, L400.2200, L400.2500, L400.5100, L404.6500 ####[facility] ([facility])[address] [place], [place] [phone] Nivar, MD Anisocytosis Auto Ql (Bld) 1+ Normal [facility] Comment on above: Performed By: #### L 400.0202, L400.0302, L400.2200, L400.2500, L400.5100, L404.6500 ####[facility] ([facility])[address], [place] [phone] Nivar, MD Basophils Auto #/vol (Bld) 0.4 % Normal 0-2 [facility] Comment on above: Performed By: #### L 400.0202, L400.0302, L400.2200, L400.2500, L400.5100, L404.6500 ####[facility] ([facility])[address] [place] [phone] Nivar, MD EOS-Auto Diff 2.6 % Normal 0-6 [facility] Comment on above: Performed By: #### L 400.0202, L400.0302, L400.2200, L400.2500, L400.5100, L404.6500 ####[facility] ([facility])[address] [place], [place] [phone] Nivar, MD Erythrocyte distribution width Auto Ratio (RBC) 18.5 % High 12.0-16.0 [facility] Comment on above: Performed By: #### L 400.0202, L400.0302, L400.2200, L400.2500, L400.5100, L404.6500 ####[facility] ([facility])[address] [phone] Nivar, MD Hematocrit Auto Volume Fraction (Bld) 26.6 % Low 40.0-49.0 [facility] Comment on above: Performed By: #### L 400.0202, L400.0302, L400.2200, L400.2500, L400.5100, L404.6500 ####[facility] ([facility])[address] [place] [phone] Nivar, MD Hemoglobin mass conc (Bld) 8.4 g/dL Low 13.5-16.5 [facility] Comment on above: Performed By: #### L 400.0202, L400.0302, L400.2200, L400.2500, L400.5100, L404.6500 ####[facility] ([facility])[address] [phone] Nivar, MD Lymphocytes Auto #/vol (Bld) 2700 /cmm Normal 5288-6839 [facility] Comment on above: Performed By: #### L 400.0202, L400.0302, L400.2200, L400.2500, L400.5100, L404.6500 ####[facility] ([facility])[address] [phone] Nivar, MD Lymphocytes/100 WBC Auto (Bld) 26.1 % Normal 15-45 [facility] Comment on above: Performed By: #### L 400.0202, L400.0302, L400.2200, L400.2500, L400.5100, L404.6500 ####[facility] ([facility])[address], [place] [phone] Nivar, MD MCH Auto Entitic mass (RBC) 29.6 pg Normal 27.5-33.0 [facility] Comment on above: Performed By: #### L 400.0202, L400.0302, L400.2200, L400.2500, L400.5100, L404.6500 ####[facility] ([facility])[address] [place] [phone] Nivar, MD MCHC Auto mass conc (RBC) 31.7 g/dL Low 33.0-36.0 [facility] Comment on above: Performed By: #### L 400.0202, L400.0302, L400.2200, L400.2500, L400.5100, L404.6500 ####[facility] ([facility])[address] [place] [phone] Nivar, MD MCV Auto Entitic volume (RBC) 93.3 CU SOPHIE Normal 80-97 [facility] Comment on above: Performed By: #### L 400.0202, L400.0302, L400.2200, L400.2500, L400.5100, L404.6500 ####[facility] ([facility])[address] [place] [phone] Nivar, MD [place]- Auto Diff 7.7 % Normal 2-10 [facility] Comment on above: Performed By: #### L 400.0202, L400.0302, L400.2200, L400.2500, L400.5100, L404.6500 ####Main Laboratory ([facility])[address] [place] [phone] Nivar, MD Neut-Auto Diff 63.2 % Normal 40-70 [facility] Comment on above: Performed By: #### L 400.0202, L400.0302, L400.2200, L400.2500, L400.5100, L404.6500 ####Main Laboratory ([facility])[address] [phone] Nivar, MD NRBC-Auto 0.1 /100 WBC Normal <1 [facility] Comment on above: Performed By: #### L 400.0202, L400.0302, L400.2200, L400.2500, L400.5100, L404.6500 ####Main Laboratory ([facility])[address] [phone] Nivar, MD Platelets Auto #/vol (Bld) 295 th/cmm Normal 150-400 [facility] Comment on above: Performed By: #### L 400.0202, L400.0302, L400.2200, L400.2500, L400.5100, L404.6500 ####Main Laboratory ([facility])[address] [phone] Nivar, MD RBC Auto #/vol (Bld) 2.85 mil/cmm Low 4.50-6.00 [facility] Comment on above: Performed By: #### L 400.0202, L400.0302, L400.2200, L400.2500, L400.5100, L404.6500 ####Main Laboratory ([facility])[address] [phone] Nivar, MD WBC Auto #/vol (Bld) 10.2 th/cmm Normal 4.4-10.5 [facility] Comment on above: Performed By: #### L 400.0202, L400.0302, L400.2200, L400.2500, L400.5100, L404.6500 ####Main Laboratory ([facility])[address] [phone] Nivar, MD [place] MODIFIED BARIUM SWALLOW W [...] by:NADEGE Dixonigned by:Fidel Rodriguez MD03/01/18inal result Normal [facility] Hepatic Function Panel (Live r)on 03-01-2018 Albumin mass conc 3.1 g/dL Low 3.5-5.0 [facility] Comment on above: Performed By: #### L 400.0202, L400.0302, L400.2200, L400.2500, L400.5100, L404.6500 ####[facility] ([facility])[address] [place], [place] [phone] Nivar, MD Alk Phos 97 IU/L Normal 41-137 [facility] Comment on above: Performed By: #### L 400.0202, L400.0302, L400.2200, L400.2500, L400.5100, L404.6500 ####[facility] ([facility])[address] [place], [place] [phone] Nivar, MD ALT/SGPT 19 IU/L Normal 10-40 [facility] Comment on above: Performed By: #### L 400.0202, L400.0302, L400.2200, L400.2500, L400.5100, L404.6500 ####[facility] ([facility])[address], [place] [phone] Nivar, MD AST/SGOT 20 IU/L Normal 15-41 [facility] Comment on above: Performed By: #### L 400.0202, L400.0302, L400.2200, L400.2500, L400.5100, L404.6500 ####[facility] ([facility])[address] [place], [place] [phone] Nivar, MD Bili,Direct < 0.1 Low 0.1-0.2 [facility] Comment on above: Performed By: #### L 400.0202, L400.0302, L400.2200, L400.2500, L400.5100, L404.6500 ####[facility] ([facility])[address] [phone] Nivar, MD Bili,Total < 0.1 Low 0.2-1.0 [facility] Comment on above: Result Comment: Delt a: 0.4 on 02/22/18 Performed By: #### L 400.0202, L400.0302, L400.2200, L400.2500, L400.5100, L404.6500 ####[facility] ([facility])[address] [place], [place] [phone] Nivar, MD Protein mass conc 6.9 g/dL Normal 6.2-8.0 [facility] Comment on above: Performed By: #### L 400.0202, L400.0302, L400.2200, L400.2500, L400.5100, L404.6500 ####[facility] ([facility])[address] [place], [place] [phone] Nivar, MD Magnesiumon 03-01-2018 Magnesium mass conc 1.8 mg/dL Normal 1.8-2.5 [facility] Comment on above: Performed By: #### L 400.0202, L400.0302, L400.2200, L400.2500, L400.5100, L404.6500 ####[facility] ([facility])[address] [place], [place] [phone] Nivar, MD Basic Metabolic Panel,Fastin sabas 02-28-2018 Anion gap 3 molar conc 5 mmol/L Normal 4-12 [facility] Comment on above: Performed By: #### L 400.0202, L400.0302, L400.2200, L400.2500, L400.5100, L404.6500 ####[facility] ([facility])[address] [place], [place] [phone] Nivar, MD Calcium mass conc 8.4 mg/dL Low 8.8-10.5 [facility] Comment on above: Performed By: #### L 400.0202, L400.0302, L400.2200, L400.2500, L400.5100, L404.6500 ####[facility] ([facility])[address] [place] [phone] Nivar, MD Chloride molar conc 109 mmol/L Normal 101-111 [facility] Comment on above: Performed By: #### L 400.0202, L400.0302, L400.2200, L400.2500, L400.5100, L404.6500 ####[facility] ([facility])[address] [place], [place] [phone] Nivar, MD CO2 molar conc 22 mmol/L Normal 21-32 [facility] Comment on above: Performed By: #### L 400.0202, L400.0302, L400.2200, L400.2500, L400.5100, L404.6500 ####[facility] ([facility])[address] [place], [place] [phone] Nivar, MD Creatinine mass conc 1.03 mg/dL Normal 0.70-1.30 [facility] Comment on above: Performed By: #### L 400.0202, L400.0302, L400.2200, L400.2500, L400.5100, L404.6500 ####[facility] ([facility])[address], [place] [phone] Nivar, MD GFR/1.73 sq M predicted among non-blacks MDRD vol rate/area (S/P/Bld) mL/min/{1.73_m2} Normal [facility] Comment on above: Result Comment: Pigeon Fancier usha Kidney Disease stages by NKDFStage eGFR I >90 II 60-89 III 30-59 IV 15-29 V <15 or dialysisAGE(years) AVERAGE GFR 50-59 93 ml/min/1.73 square metersNote:This result is normalized to 1.73 square meter body surface area. Height and weight are not factored. Performed By: #### L 400.0202, L400.0302, L400.2200, L400.2500, L400.5100, L404.6500 ####[facility] ([facility])[address] [place], [place] [phone] Nivar, MD Glucose mass conc 94 mg/dL Normal 70-110 [facility] Comment on above: Performed By: #### L 400.0202, L400.0302, L400.2200, L400.2500, L400.5100, L404.6500 ####[facility] ([facility])[address] [place] [phone] Nivar, MD Potassium molar conc 3.7 mmol/L Normal 3.6-5.0 [facility] Comment on above: Performed By: #### L 400.0202, L400.0302, L400.2200, L400.2500, L400.5100, L404.6500 ####[facility] ([facility])[address] [place], [place] [phone] Nivar, MD Sodium molar conc 136 mmol/L Normal 135-145 [facility] Comment on above: Performed By: #### L 400.0202, L400.0302, L400.2200, L400.2500, L400.5100, L404.6500 ####[facility] ([facility])[address] [place], [place] [phone] Nivar, MD Urea nitrogen mass conc 22 mg/dL High 7-20 [facility] Comment on above: Performed By: #### L 400.0202, L400.0302, L400.2200, L400.2500, L400.5100, L404.6500 ####[facility] ([facility])[address] [place], [place] [phone] Nivar, MD CBC with Differentialon 02-02 Abs Baso Count 0 /cmm Normal 0-200 [facility] Comment on above: Performed By: #### L 400.0202, L400.0302, L400.2200, L400.2500, L400.5100, L404.6500 ####[facility] ([facility])[address] [place], [place] [phone] Nivar, MD Abs Eos Count 400 /cmm Normal 0-500 [facility] Comment on above: Performed By: #### L 400.0202, L400.0302, L400.2200, L400.2500, L400.5100, L404.6500 ####[facility] ([facility])[address] [place], [place] [phone] Nivar, MD Abs [place] Count 1000 /cmm High 0-800 [facility] Comment on above: Performed By: #### L 400.0202, L400.0302, L400.2200, L400.2500, L400.5100, L404.6500 ####[facility] ([facility])[address] [place] [phone] Nivar, MD Abs Neut Count 8300 /cmm High 6137-0694 [facility] Comment on above: Performed By: #### L 400.0202, L400.0302, L400.2200, L400.2500, L400.5100, L404.6500 ####[facility] ([facility])[address] [place], [place] [phone] Nivar, MD Anisocytosis Auto Ql (Bld) 1+ Normal [facility] Comment on above: Performed By: #### L 400.0202, L400.0302, L400.2200, L400.2500, L400.5100, L404.6500 ####[facility] ([facility])[address] [place], [place] [phone] Nivar, MD Basophils Auto #/vol (Bld) 0.3 % Normal 0-2 [facility] Comment on above: Performed By: #### L 400.0202, L400.0302, L400.2200, L400.2500, L400.5100, L404.6500 ####[facility] ([facility])[address] [place], [place] [phone] Nivar, MD EOS-Auto Diff 2.9 % Normal 0-6 [facility] Comment on above: Performed By: #### L 400.0202, L400.0302, L400.2200, L400.2500, L400.5100, L404.6500 ####[facility] ([facility])[address] [place], [place] [phone] Nivar, MD Erythrocyte distribution width Auto Ratio (RBC) 18.2 % High 12.0-16.0 [facility] Comment on above: Performed By: #### L 400.0202, L400.0302, L400.2200, L400.2500, L400.5100, L404.6500 ####[facility] ([facility])[address] [place] [phone] Nivar, MD Hematocrit Auto Volume Fraction (Bld) 24.4 % Low 40.0-49.0 [facility] Comment on above: Performed By: #### L 400.0202, L400.0302, L400.2200, L400.2500, L400.5100, L404.6500 ####[facility] ([facility])[address] [place], [place] [phone] Nivar, MD Hemoglobin mass conc (Bld) 7.6 g/dL Low 13.5-16.5 [facility] Comment on above: Performed By: #### L 400.0202, L400.0302, L400.2200, L400.2500, L400.5100, L404.6500 ####[facility] ([facility])[address] [place], [place] [phone] Nivar, MD Lymphocytes Auto #/vol (Bld) 3200 /cmm Normal 8450-3376 [facility] Comment on above: Performed By: #### L 400.0202, L400.0302, L400.2200, L400.2500, L400.5100, L404.6500 ####[facility] ([facility])[address] [phone] Nivar, MD Lymphocytes/100 WBC Auto (Bld) 24.8 % Normal 15-45 [facility] Comment on above: Performed By: #### L 400.0202, L400.0302, L400.2200, L400.2500, L400.5100, L404.6500 ####[facility] ([facility])[address], [place] [phone] Nivar, MD MCH Auto Entitic mass (RBC) 29.2 pg Normal 27.5-33.0 [facility] Comment on above: Performed By: #### L 400.0202, L400.0302, L400.2200, L400.2500, L400.5100, L404.6500 ####[facility] ([facility])[address] [place], [place] [phone] Nivar, MD MCHC Auto mass conc (RBC) 31.3 g/dL Low 33.0-36.0 [facility] Comment on above: Performed By: #### L 400.0202, L400.0302, L400.2200, L400.2500, L400.5100, L404.6500 ####[facility] ([facility])[address] [place], [place] [phone] Nivar, MD MCV Auto Entitic volume (RBC) 93.4 CU SOPHIE Normal 80-97 [facility] Comment on above: Performed By: #### L 400.0202, L400.0302, L400.2200, L400.2500, L400.5100, L404.6500 ####[facility] ([facility])[address] [place], [place] [phone] Nivar, MD [place]- Auto Diff 7.7 % Normal 2-10 [facility] Comment on above: Performed By: #### L 400.0202, L400.0302, L400.2200, L400.2500, L400.5100, L404.6500 ####[facility] ([facility])[address], [place] [phone] Nivar, MD Neut-Auto Diff 64.3 % Normal 40-70 [facility] Comment on above: Performed By: #### L 400.0202, L400.0302, L400.2200, L400.2500, L400.5100, L404.6500 ####[facility] ([facility])[address] [phone] Nivar, MD NRBC-Auto 0.1 /100 WBC Normal <1 [facility] Comment on above: Performed By: #### L 400.0202, L400.0302, L400.2200, L400.2500, L400.5100, L404.6500 ####[facility] ([facility])[address], [place] [phone] Nivar, MD Platelets Auto #/vol (Bld) 295 th/cmm Normal 150-400 [facility] Comment on above: Performed By: #### L 400.0202, L400.0302, L400.2200, L400.2500, L400.5100, L404.6500 ####[facility] ([facility])[address], [place] [phone] Nivar, MD RBC Auto #/vol (Bld) 2.61 mil/cmm Low 4.50-6.00 [facility] Comment on above: Performed By: #### L 400.0202, L400.0302, L400.2200, L400.2500, L400.5100, L404.6500 ####[facility] ([facility])[address] [phone] Nivar, MD WBC Auto #/vol (Bld) 12.9 th/cmm High 4.4-10.5 [facility] Comment on above: Performed By: #### L 400.0202, L400.0302, L400.2200, L400.2500, L400.5100, L404.6500 ####[facility] ([facility])[address] [phone] Nivar, MD Magnesiumon 02-28-2018 Magnesium mass conc 1.8 mg/dL Normal 1.8-2.5 [facility] Comment on above: Performed By: #### L 400.0202, L400.0302, L400.2200, L400.2500, L400.5100, L404.6500 ####[facility] ([facility])[address] [place] [phone] Nivar, MD Phosphoruson 02-28-2018 Phosphate mass conc 3.5 mg/dL Normal 2.4-4.7 [facility] Comment on above: Performed By: #### L 400.0202, L400.0302, L400.2200, L400.2500, L400.5100, L404.6500 ####[facility] ([facility])[address] [place], [place] [phone] Nivar, MD Basic Metabolic,Non-Fastingo n 02-27-2018 Anion gap 3 molar conc 7 mmol/L Normal 4-12 [facility] Comment on above: Performed By: #### L 400.0202, L400.0302, L400.2200, L400.2500, L400.5100, L404.6500 ####[facility] ([facility])[address] [place] [phone] Nivar, MD Calcium mass conc 8.3 mg/dL Low 8.8-10.5 [facility] Comment on above: Performed By: #### L 400.0202, L400.0302, L400.2200, L400.2500, L400.5100, L404.6500 ####[facility] ([facility])[address] [place] [phone] Nivar, MD Chloride molar conc 110 mmol/L Normal 101-111 [facility] Comment on above: Performed By: #### L 400.0202, L400.0302, L400.2200, L400.2500, L400.5100, L404.6500 ####[facility] ([facility])[address] [place], [place] [phone] Nivar, MD CO2 molar conc 23 mmol/L Normal 21-32 [facility] Comment on above: Performed By: #### L 400.0202, L400.0302, L400.2200, L400.2500, L400.5100, L404.6500 ####[facility] ([facility])[address] [phone] Nivar, MD Creatinine mass conc 1.21 mg/dL Normal 0.70-1.30 [facility] Comment on above: Performed By: #### L 400.0202, L400.0302, L400.2200, L400.2500, L400.5100, L404.6500 ####[facility] ([facility])[address] [place], [place] [phone] Nivar, MD GFR/1.73 sq M predicted among non-blacks MDRD vol rate/area (S/P/Bld) mL/min/{1.73_m2} Normal [facility] Comment on above: Result Comment: Pigeon Fancier usha Kidney Disease stages by NKDFStage eGFR I >90 II 60-89 III 30-59 IV 15-29 V <15 or dialysisAGE(years) AVERAGE GFR 50-59 93 ml/min/1.73 square metersNote:This result is normalized to 1.73 square meter body surface area. Height and weight are not factored. Performed By: #### L 400.0202, L400.0302, L400.2200, L400.2500, L400.5100, L404.6500 ####[facility] ([facility])[address] [place], [place] [phone] Nivar, MD Glucose mass conc 101 mg/dL Normal 70-110 [facility] Comment on above: Result Comment: *Thi s reference range applies to fasting specimens only. Performed By: #### L 400.0202, L400.0302, L400.2200, L400.2500, L400.5100, L404.6500 ####[facility] ([facility])[address] [place] [phone] Nivar, MD Potassium molar conc 3.8 mmol/L Normal 3.6-5.0 [facility] Comment on above: Performed By: #### L 400.0202, L400.0302, L400.2200, L400.2500, L400.5100, L404.6500 ####[facility] ([facility])[address] [place], [place] [phone] Nivar, MD Sodium molar conc 140 mmol/L Normal 135-145 [facility] Comment on above: Result Comment: Delt a: 146 on 02/26/18 Performed By: #### L 400.0202, L400.0302, L400.2200, L400.2500, L400.5100, L404.6500 ####[facility] ([facility])[address] [place], [place] [phone] Nivar, MD Urea nitrogen mass conc 24 mg/dL High 7-20 [facility] Comment on above: Performed By: #### L 400.0202, L400.0302, L400.2200, L400.2500, L400.5100, L404.6500 ####[facility] ([facility])[address] [place] [phone] Nivar, MD Magnesiumon 02-27-2018 Magnesium mass conc 1.6 mg/dL Low 1.8-2.5 [facility] Comment on above: Performed By: #### L 400.0202, L400.0302, L400.2200, L400.2500, L400.5100, L404.6500 ####[facility] ([facility])[address] [place], [place] [phone] Nivar, MD Phosphoruson 02-27-2018 Phosphate mass conc 3.0 mg/dL Normal 2.4-4.7 [facility] Comment on above: Performed By: #### L 400.0202, L400.0302, L400.2200, L400.2500, L400.5100, L404.6500 ####[facility] ([facility])[address], [place] [phone] Nivar, MD Basic Metabolic,Non-Fastingo n 02-26-2018 Anion gap 3 molar conc 10 mmol/L Normal 4-12 [facility] Comment on above: Performed By: #### L 400.0202, L400.0302, L400.2200, L400.2500, L400.5100, L404.6500 ####[facility] ([facility])[address] [place], [place] [phone] Nivar, MD Calcium mass conc 8.7 mg/dL Low 8.8-10.5 [facility] Comment on above: Performed By: #### L 400.0202, L400.0302, L400.2200, L400.2500, L400.5100, L404.6500 ####[facility] ([facility])[address] [place], [place] [phone] Nivar, MD Chloride molar conc 114 mmol/L High 101-111 [facility] Comment on above: Performed By: #### L 400.0202, L400.0302, L400.2200, L400.2500, L400.5100, L404.6500 ####[facility] ([facility])[address] [place], [place] [phone] Nivar, MD CO2 molar conc 22 mmol/L Normal 21-32 [facility] Comment on above: Performed By: #### L 400.0202, L400.0302, L400.2200, L400.2500, L400.5100, L404.6500 ####[facility] ([facility])[address] [place] [phone] Nivar, MD Creatinine mass conc 1.28 mg/dL Normal 0.70-1.30 [facility] Comment on above: Performed By: #### L 400.0202, L400.0302, L400.2200, L400.2500, L400.5100, L404.6500 ####[facility] ([facility])[address] [phone] Nivar, MD GFR/1.73 sq M predicted among non-blacks MDRD vol rate/area (S/P/Bld) mL/min/{1.73_m2} Normal [facility] Comment on above: Result Comment: Pigeon Fancier usha Kidney Disease stages by NKDFStage eGFR I >90 II 60-89 III 30-59 IV 15-29 V <15 or dialysisAGE(years) AVERAGE GFR 50-59 93 ml/min/1.73 square metersNote:This result is normalized to 1.73 square meter body surface area. Height and weight are not factored. Performed By: #### L 400.0202, L400.0302, L400.2200, L400.2500, L400.5100, L404.6500 ####[facility] ([facility])[address] [place] [phone] Nivar, MD Glucose mass conc 110 mg/dL Normal 70-110 [facility] Comment on above: Result Comment: *Thi s reference range applies to fasting specimens only. Performed By: #### L 400.0202, L400.0302, L400.2200, L400.2500, L400.5100, L404.6500 ####[facility] ([facility])[address] [phone] Nivar, MD Potassium molar conc 3.6 mmol/L Normal 3.6-5.0 [facility] Comment on above: Performed By: #### L 400.0202, L400.0302, L400.2200, L400.2500, L400.5100, L404.6500 ####[facility] ([facility])[address] [place], [place] [phone] Nivar, MD Sodium molar conc 146 mmol/L High 135-145 [facility] Comment on above: Performed By: #### L 400.0202, L400.0302, L400.2200, L400.2500, L400.5100, L404.6500 ####[facility] ([facility])[address], [place] [phone] Nivar, MD Urea nitrogen mass conc 27 mg/dL High 7-20 [facility] Comment on above: Performed By: #### L 400.0202, L400.0302, L400.2200, L400.2500, L400.5100, L404.6500 ####[facility] ([facility])[address], [place] [phone] Nivar, MD Magnesiumon 02-26-2018 Magnesium mass conc 1.9 mg/dL Normal 1.8-2.5 [facility] Comment on above: Performed By: #### L 400.0202, L400.0302, L400.2200, L400.2500, L400.5100, L404.6500 ####[facility] ([facility])[address] [place], [place] [phone] Nivar, MD Phosphoruson 02-26-2018 Phosphate mass conc 3.5 mg/dL Normal 2.4-4.7 [facility] Comment on above: Performed By: #### L 400.0202, L400.0302, L400.2200, L400.2500, L400.5100, L404.6500 ####[facility] ([facility])[address] [phone] Nivar, MD Basic Metabolic,Non-Fastingo n 02-25-2018 Anion gap 3 molar conc 9 mmol/L Normal 4-12 [facility] Comment on above: Performed By: #### L 400.0202, L400.0302, L400.2200, L400.2500, L400.5100, L404.6500 ####[facility] ([facility])[address] [place] [phone] Nivar, MD Calcium mass conc 8.2 mg/dL Low 8.8-10.5 [facility] Comment on above: Performed By: #### L 400.0202, L400.0302, L400.2200, L400.2500, L400.5100, L404.6500 ####Main Laboratory ([facility])[address] [place] [phone] Nivar, MD Chloride molar conc 114 mmol/L High 101-111 [facility] Comment on above: Performed By: #### L 400.0202, L400.0302, L400.2200, L400.2500, L400.5100, L404.6500 ####Main Laboratory ([facility])[address] [place] [phone] Nivar, MD CO2 molar conc 22 mmol/L Normal 21-32 [facility] Comment on above: Performed By: #### L 400.0202, L400.0302, L400.2200, L400.2500, L400.5100, L404.6500 ####Main [facility] ([facility])[address] [place] [phone] Nivar, MD Creatinine mass conc 1.32 mg/dL High 0.70-1.30 [facility] Comment on above: Performed By: #### L 400.0202, L400.0302, L400.2200, L400.2500, L400.5100, L404.6500 ####Main [facility] ([facility])[address] [place] [phone] Nivar, MD GFR/1.73 sq M predicted among non-blacks MDRD vol rate/area (S/P/Bld) mL/min/{1.73_m2} Normal [facility] Comment on above: Result Comment: Pigeon Fancier usha Kidney Disease stages by NKDFStage eGFR I >90 II 60-89 III 30-59 IV 15-29 V <15 or dialysisAGE(years) AVERAGE GFR 50-59 93 ml/min/1.73 square metersNote:This result is normalized to 1.73 square meter body surface area. Height and weight are not factored. Performed By: #### L 400.0202, L400.0302, L400.2200, L400.2500, L400.5100, L404.6500 ####Main Laboratory ([facility])[address] [phone] Nivar, MD Glucose mass conc 96 mg/dL Normal 70-110 [facility] Comment on above: Result Comment: *Thi s reference range applies to fasting specimens only. Performed By: #### L 400.0202, L400.0302, L400.2200, L400.2500, L400.5100, L404.6500 ####Main [facility] ([facility])[address] [place] [phone] Nivar, MD Potassium molar conc 3.3 mmol/L Low 3.6-5.0 [facility] Comment on above: Performed By: #### L 400.0202, L400.0302, L400.2200, L400.2500, L400.5100, L404.6500 ####[facility] ([facility])[address] [place], [place] [phone] Nivar, MD Sodium molar conc 145 mmol/L Invalid Interpretation Code 135-145 [facility] Comment on above: Result Comment: Delt a: 140 on 02/24/18 Performed By: #### L 400.0202, L400.0302, L400.2200, L400.2500, L400.5100, L404.6500 ####[facility] ([facility])[address] [place], [place] [phone] Nivar, MD Urea nitrogen mass conc 30 mg/dL High 7-20 [facility] Comment on above: Performed By: #### L 400.0202, L400.0302, L400.2200, L400.2500, L400.5100, L404.6500 ####[facility] ([facility])[address] [place], [place] [phone] Nivar, MD CBC with Differentialon 02-02 Abs Baso Count 100 /cmm Normal 0-200 [facility] Comment on above: Performed By: #### L 400.0202, L400.0302, L400.2200, L400.2500, L400.5100, L404.6500 ####[facility] ([facility])[address] [place], [place] [phone] Nivar, MD Abs Eos Count 400 /cmm Normal 0-500 [facility] Comment on above: Performed By: #### L 400.0202, L400.0302, L400.2200, L400.2500, L400.5100, L404.6500 ####[facility] ([facility])[address] [place], [place] [phone] Nivar, MD Abs [place] Count 900 /cmm High 0-800 [facility] Comment on above: Performed By: #### L 400.0202, L400.0302, L400.2200, L400.2500, L400.5100, L404.6500 ####[facility] ([facility])[address], [place] [phone] Nivar, MD Abs Neut Count 9700 /cmm High 9380-9478 [facility] Comment on above: Performed By: #### L 400.0202, L400.0302, L400.2200, L400.2500, L400.5100, L404.6500 ####[facility] ([facility])[address], [place] [phone] Nivar, MD Basophils Auto #/vol (Bld) 0.4 % Normal 0-2 [facility] Comment on above: Performed By: #### L 400.0202, L400.0302, L400.2200, L400.2500, L400.5100, L404.6500 ####[facility] ([facility])[address], [place] [phone] Nivar, MD EOS-Auto Diff 3.0 % Normal 0-6 [facility] Comment on above: Performed By: #### L 400.0202, L400.0302, L400.2200, L400.2500, L400.5100, L404.6500 ####[facility] ([facility])[address] [place], [place] [phone] Nivar, MD Erythrocyte distribution width Auto Ratio (RBC) 17.8 % High 12.0-16.0 [facility] Comment on above: Performed By: #### L 400.0202, L400.0302, L400.2200, L400.2500, L400.5100, L404.6500 ####[facility] ([facility])[address], [place] [phone] Nivar, MD Hematocrit Auto Volume Fraction (Bld) 23.6 % Low 40.0-49.0 [facility] Comment on above: Performed By: #### L 400.0202, L400.0302, L400.2200, L400.2500, L400.5100, L404.6500 ####[facility] ([facility])[address] [place] [phone] Nivar, MD Hemoglobin mass conc (Bld) 7.4 g/dL Low 13.5-16.5 [facility] Comment on above: Performed By: #### L 400.0202, L400.0302, L400.2200, L400.2500, L400.5100, L404.6500 ####[facility] ([facility])[address] [place] [phone] Nivar, MD Lymphocytes Auto #/vol (Bld) 3000 /cmm Normal 3200-4500 [facility] Comment on above: Performed By: #### L 400.0202, L400.0302, L400.2200, L400.2500, L400.5100, L404.6500 ####[facility] ([facility])[address] [place] [phone] Nivar, MD Lymphocytes/100 WBC Auto (Bld) 21.1 % Normal 15-45 [facility] Comment on above: Performed By: #### L 400.0202, L400.0302, L400.2200, L400.2500, L400.5100, L404.6500 ####[facility] ([facility])[address] [place] [phone] Nivar, MD MCH Auto Entitic mass (RBC) 29.1 pg Normal 27.5-33.0 [facility] Comment on above: Performed By: #### L 400.0202, L400.0302, L400.2200, L400.2500, L400.5100, L404.6500 ####[facility] ([facility])[address] [place] [phone] Nivar, MD MCHC Auto mass conc (RBC) 31.3 g/dL Low 33.0-36.0 [facility] Comment on above: Performed By: #### L 400.0202, L400.0302, L400.2200, L400.2500, L400.5100, L404.6500 ####[facility] ([facility])[address] [place], [place] [phone] Nivar, MD MCV Auto Entitic volume (RBC) 93.2 CU SOPHIE Normal 80-97 [facility] Comment on above: Performed By: #### L 400.0202, L400.0302, L400.2200, L400.2500, L400.5100, L404.6500 ####[facility] ([facility])[address], [place] [phone] Nivar, MD [place]- Auto Diff 6.6 % Normal 2-10 [facility] Comment on above: Performed By: #### L 400.0202, L400.0302, L400.2200, L400.2500, L400.5100, L404.6500 ####[facility] ([facility])[address], [place] [phone] Nivar, MD Neut-Auto Diff 68.9 % Normal 40-70 [facility] Comment on above: Performed By: #### L 400.0202, L400.0302, L400.2200, L400.2500, L400.5100, L404.6500 ####[facility] ([facility])[address] [place], [place] [phone] Nivar, MD NRBC-Auto 0.1 /100 WBC Normal <1 [facility] Comment on above: Performed By: #### L 400.0202, L400.0302, L400.2200, L400.2500, L400.5100, L404.6500 ####[facility] ([facility])[address] [place] [phone] Nivar, MD Platelets Auto #/vol (Bld) 304 th/cmm Normal 150-400 [facility] Comment on above: Performed By: #### L 400.0202, L400.0302, L400.2200, L400.2500, L400.5100, L404.6500 ####[facility] ([facility])[address] [place] [phone] Nivar, MD RBC Auto #/vol (Bld) 2.53 mil/cmm Low 4.50-6.00 [facility] Comment on above: Performed By: #### L 400.0202, L400.0302, L400.2200, L400.2500, L400.5100, L404.6500 ####[facility] ([facility])[address], [place] [phone] Nivar, MD WBC Auto #/vol (Bld) 14.1 th/cmm High 4.4-10.5 [facility] Comment on above: Performed By: #### L 400.0202, L400.0302, L400.2200, L400.2500, L400.5100, L404.6500 ####[facility] ([facility])[address] [place] [phone] Nivar, MD Ferritinon 02-25-2018 Ferritin [Mass/volume] in Serum or Plasma 1719 ng/mL High 24-336 [facility] Comment on above: Performed By: #### L 400.0202, L400.0302, L400.2200, L400.2500, L400.5100, L404.6500 ####[facility] ([facility])[address] [place], [place] [phone] Nivar, MD Hepatic Function Panel (Live r)on 02-25-2018 Albumin mass conc 3.2 g/dL Low 3.5-5.0 [facility] Comment on above: Performed By: #### L 400.0202, L400.0302, L400.2200, L400.2500, L400.5100, L404.6500 ####[facility] ([facility])[address], [place] [phone] Nivar, MD Alk Phos 134 IU/L Normal 41-137 [facility] Comment on above: Performed By: #### L 400.0202, L400.0302, L400.2200, L400.2500, L400.5100, L404.6500 ####[facility] ([facility])[address], [place] [phone] Nivar, MD ALT/SGPT 32 IU/L Normal 10-40 [facility] Comment on above: Performed By: #### L 400.0202, L400.0302, L400.2200, L400.2500, L400.5100, L404.6500 ####[facility] ([facility])[address], [place] [phone] Nivar, MD AST/SGOT 33 IU/L Normal 15-41 [facility] Comment on above: Performed By: #### L 400.0202, L400.0302, L400.2200, L400.2500, L400.5100, L404.6500 ####[facility] ([facility])[address], [place] [phone] Nivar, MD Bili, Total 0.5 mg/dL Normal 0.2-1.0 [facility] Comment on above: Performed By: #### L 400.0202, L400.0302, L400.2200, L400.2500, L400.5100, L404.6500 ####[facility] ([facility])[address], [place] [phone] Nivar, MD Bili,Direct 0.1 mg/dL Normal 0.1-0.2 [facility] Comment on above: Performed By: #### L 400.0202, L400.0302, L400.2200, L400.2500, L400.5100, L404.6500 ####[facility] ([facility])[address], [place] [phone] Nivar, MD Protein mass conc 7.8 g/dL Normal 6.2-8.0 [facility] Comment on above: Performed By: #### L 400.0202, L400.0302, L400.2200, L400.2500, L400.5100, L404.6500 ####[facility] ([facility])[address], [place] [phone] Nivar, MD Iron Binding and Saturationo n 02-25-2018 Iron, Serum 59 mcg/dL Normal 45-182 [facility] Comment on above: Performed By: #### L 400.0202, L400.0302, L400.2200, L400.2500, L400.5100, L404.6500 ####[facility] ([facility])[address] [place] [phone] Nivar, MD Transferrin mass conc 162 mg/dL Low 180-329 [facility] Comment on above: Performed By: #### L 400.0202, L400.0302, L400.2200, L400.2500, L400.5100, L404.6500 ####[facility] ([facility])[address] [place], [place] [phone] Nivar, MD % Iron Saturation 26 % Normal 20-50 [facility] Comment on above: Performed By: #### L 400.0202, L400.0302, L400.2200, L400.2500, L400.5100, L404.6500 ####[facility] ([facility])[address] [place], [place] [phone] Nivar, MD Magnesiumon 02-25-2018 Magnesium mass conc 1.6 mg/dL Low 1.8-2.5 [facility] Comment on above: Performed By: #### L 400.0202, L400.0302, L400.2200, L400.2500, L400.5100, L404.6500 ####[facility] ([facility])[address] [phone] Nivar, MD Phosphoruson 02-25-2018 Phosphate mass conc 3.6 mg/dL Normal 2.4-4.7 [facility] Comment on above: Performed By: #### L 400.0202, L400.0302, L400.2200, L400.2500, L400.5100, L404.6500 ####[facility] ([facility])[address] [place], [place] [phone] Nivar, MD Reticulocyte Counton 018 Reticulocyte Count 1.60 % Normal 0.90-2.60 [facility] Comment on above: Performed By: #### L 400.0202, L400.0302, L400.2200, L400.2500, L400.5100, L404.6500 ####[facility] ([facility])[address] [place], [place] [phone] Nivar, MD Basic Metabolic,Non-Fastingo n 02-24-2018 Anion gap 3 molar conc 9 mmol/L Normal 4-12 [facility] Comment on above: Performed By: #### L 400.0202, L400.0302, L400.2200, L400.2500, L400.5100, L404.6500 ####[facility] ([facility])[address] [place], [place] [phone] Nivar, MD Calcium mass conc 8.1 mg/dL Low 8.8-10.5 [facility] Comment on above: Performed By: #### L 400.0202, L400.0302, L400.2200, L400.2500, L400.5100, L404.6500 ####[facility] ([facility])[address] [place] [phone] Nivar, MD Chloride molar conc 110 mmol/L Normal 101-111 [facility] Comment on above: Performed By: #### L 400.0202, L400.0302, L400.2200, L400.2500, L400.5100, L404.6500 ####[facility] ([facility])[address] [place] [phone] Nivar, MD CO2 molar conc 21 mmol/L Normal 21-32 [facility] Comment on above: Performed By: #### L 400.0202, L400.0302, L400.2200, L400.2500, L400.5100, L404.6500 ####[facility] ([facility])[address] [place] [phone] Nivar, MD Creatinine mass conc 1.42 mg/dL High 0.70-1.30 [facility] Comment on above: Performed By: #### L 400.0202, L400.0302, L400.2200, L400.2500, L400.5100, L404.6500 ####[facility] ([facility])[address] [place] [phone] Nivar, MD GFR/1.73 sq M predicted among non-blacks MDRD vol rate/area (S/P/Bld) mL/min/{1.73_m2} Normal [facility] Comment on above: Result Comment: Pigeon Fancier usha Kidney Disease stages by NKDFStage eGFR I >90 II 60-89 III 30-59 IV 15-29 V <15 or dialysisAGE(years) AVERAGE GFR 50-59 93 ml/min/1.73 square metersNote:This result is normalized to 1.73 square meter body surface area. Height and weight are not factored. Performed By: #### L 400.0202, L400.0302, L400.2200, L400.2500, L400.5100, L404.6500 ####[facility] ([facility])[address] [phone] Nivar, MD Glucose mass conc 112 mg/dL High 70-110 [facility] Comment on above: Performed By: #### L 400.0202, L400.0302, L400.2200, L400.2500, L400.5100, L404.6500 ####[facility] ([facility])[address], [place] [phone] Nivar, MD Potassium molar conc 3.7 mmol/L Normal 3.6-5.0 [facility] Comment on above: Performed By: #### L 400.0202, L400.0302, L400.2200, L400.2500, L400.5100, L404.6500 ####[facility] ([facility])[address], [place] [phone] Nivar, MD Sodium molar conc 140 mmol/L Normal 135-145 [facility] Comment on above: Performed By: #### L 400.0202, L400.0302, L400.2200, L400.2500, L400.5100, L404.6500 ####[facility] ([facility])[address], [place] [phone] Nivar, MD Urea nitrogen mass conc 32 mg/dL High 7-20 [facility] Comment on above: Performed By: #### L 400.0202, L400.0302, L400.2200, L400.2500, L400.5100, L404.6500 ####[facility] ([facility])[address], [place] [phone] Nivar, MD Ionized Calciumon 02-24-2018 Ionized Calcium 1.16 mmol/L Normal 1.15-1.29 [facility] Comment on above: Performed By: #### L 400.0202, L400.0302, L400.2200, L400.2500, L400.5100, L404.6500 ####[facility] ([facility])[address] [place], [place] [phone] Nivar, MD Magnesiumon 02-24-2018 Magnesium mass conc 1.9 mg/dL Normal 1.8-2.5 [facility] Comment on above: Performed By: #### L 400.0202, L400.0302, L400.2200, L400.2500, L400.5100, L404.6500 ####[facility] ([facility])[address] [place], [place] [phone] Nivar, MD Phosphoruson 02-24-2018 Phosphate mass conc 4.1 mg/dL Normal 2.4-4.7 [facility] Comment on above: Performed By: #### L 400.0202, L400.0302, L400.2200, L400.2500, L400.5100, L404.6500 ####[facility] ([facility])[address] [place] [phone] Nivar, MD Basic Metabolic,Non-Fastingo n 02-23-2018 Anion gap 3 molar conc 10 mmol/L Normal 4-12 [facility] Comment on above: Performed By: #### L 400.0202, L400.0302, L400.2200, L400.2500, L400.5100, L404.6500 ####[facility] ([facility])[address] [place], [place] [phone] Nivar, MD Calcium mass conc 8.0 mg/dL Low 8.8-10.5 [facility] Comment on above: Performed By: #### L 400.0202, L400.0302, L400.2200, L400.2500, L400.5100, L404.6500 ####[facility] ([facility])[address] [place] [phone] Nivar, MD Chloride molar conc 112 mmol/L High 101-111 [facility] Comment on above: Performed By: #### L 400.0202, L400.0302, L400.2200, L400.2500, L400.5100, L404.6500 ####[facility] ([facility])[address] [place] [phone] Nivar, MD CO2 molar conc 19 mmol/L Low 21-32 [facility] Comment on above: Performed By: #### L 400.0202, L400.0302, L400.2200, L400.2500, L400.5100, L404.6500 ####[facility] ([facility])[address] [place] [phone] Nivar, MD Creatinine mass conc 1.29 mg/dL Normal 0.70-1.30 [facility] Comment on above: Performed By: #### L 400.0202, L400.0302, L400.2200, L400.2500, L400.5100, L404.6500 ####[facility] ([facility])[address] [place] [phone] Nivar, MD GFR/1.73 sq M predicted among non-blacks MDRD vol rate/area (S/P/Bld) mL/min/{1.73_m2} Normal [facility] Comment on above: Result Comment: Sarah usha Kidney Disease stages by NKDFStage eGFR I >90 II 60-89 III 30-59 IV 15-29 V <15 or dialysisAGE(years) AVERAGE GFR 50-59 93 ml/min/1.73 square metersNote:This result is normalized to 1.73 square meter body surface area. Height and weight are not factored. Performed By: #### L 400.0202, L400.0302, L400.2200, L400.2500, L400.5100, L404.6500 ####[facility] ([facility])[address] [place] [phone] Nivar, MD Glucose mass conc 97 mg/dL Normal 70-110 [facility] Comment on above: Result Comment: *Thi s reference range applies to fasting specimens only. Performed By: #### L 400.0202, L400.0302, L400.2200, L400.2500, L400.5100, L404.6500 ####[facility] ([facility])[address] [place] [phone] Nivar, MD Potassium molar conc 3.8 mmol/L Normal 3.6-5.0 [facility] Comment on above: Performed By: #### L 400.0202, L400.0302, L400.2200, L400.2500, L400.5100, L404.6500 ####[facility] ([facility])[address] [place] [phone] Nivar, MD Sodium molar conc 141 mmol/L Normal 135-145 [facility] Comment on above: Performed By: #### L 400.0202, L400.0302, L400.2200, L400.2500, L400.5100, L404.6500 ####[facility] ([facility])[address] [place] [phone] Nivar, MD Urea nitrogen mass conc 32 mg/dL High 7-20 [facility] Comment on above: Performed By: #### L 400.0202, L400.0302, L400.2200, L400.2500, L400.5100, L404.6500 ####[facility] ([facility])[address], [place] [phone] Nivar, MD Magnesiumon 02-23-2018 Magnesium mass conc 1.6 mg/dL Low 1.8-2.5 [facility] Comment on above: Performed By: #### L 400.0202, L400.0302, L400.2200, L400.2500, L400.5100, L404.6500 ####[facility] ([facility])[address], [place] [phone] Nivar, MD Phosphoruson 02-23-2018 Phosphate mass conc 4.0 mg/dL Invalid Interpretation Code 2.4-4.7 [facility] Comment on above: Result Comment: Delt a: 1.8 on 02/22/18-401 Performed By: #### L 400.0202, L400.0302, L400.2200, L400.2500, L400.5100, L404.6500 ####[facility] ([facility])[address], [place] [phone] Nivar, MD Basic Metabolic,Non-Fastingo n 02-22-2018 Anion gap 3 molar conc 8 mmol/L Normal 4-12 [facility] Comment on above: Performed By: #### L 400.0202, L400.0302, L400.2200, L400.2500, L400.5100, L404.6500 ####[facility] ([facility])[address], [place] [phone] Nivar, MD Calcium mass conc 8.1 mg/dL Low 8.8-10.5 [facility] Comment on above: Performed By: #### L 400.0202, L400.0302, L400.2200, L400.2500, L400.5100, L404.6500 ####[facility] ([facility])[address], [place] [phone] Nivar, MD Chloride molar conc 114 mmol/L High 101-111 [facility] Comment on above: Performed By: #### L 400.0202, L400.0302, L400.2200, L400.2500, L400.5100, L404.6500 ####[facility] ([facility])[address] [phone] Nivar, MD CO2 molar conc 20 mmol/L Low 21-32 [facility] Comment on above: Performed By: #### L 400.0202, L400.0302, L400.2200, L400.2500, L400.5100, L404.6500 ####[facility] ([facility])[address] [phone] Nivar, MD Creatinine mass conc 1.21 mg/dL Normal 0.70-1.30 [facility] Comment on above: Performed By: #### L 400.0202, L400.0302, L400.2200, L400.2500, L400.5100, L404.6500 ####[facility] ([facility])[address], [place] [phone] Nivar, MD GFR/1.73 sq M predicted among non-blacks MDRD vol rate/area (S/P/Bld) mL/min/{1.73_m2} Normal [facility] Comment on above: Result Comment: Pigeon Fancier usha Kidney Disease stages by NKDFStage eGFR I >90 II 60-89 III 30-59 IV 15-29 V <15 or dialysisAGE(years) AVERAGE GFR 50-59 93 ml/min/1.73 square metersNote:This result is normalized to 1.73 square meter body surface area. Height and weight are not factored. Performed By: #### L 400.0202, L400.0302, L400.2200, L400.2500, L400.5100, L404.6500 ####[facility] ([facility])[address] [place] [phone] Nivar, MD Glucose mass conc 107 mg/dL Normal 70-110 [facility] Comment on above: Result Comment: *Thi s reference range applies to fasting specimens only. Performed By: #### L 400.0202, L400.0302, L400.2200, L400.2500, L400.5100, L404.6500 ####[facility] ([facility])[address] [place] [phone] Nivar, MD Potassium molar conc 4.3 mmol/L Normal 3.6-5.0 [facility] Comment on above: Performed By: #### L 400.0202, L400.0302, L400.2200, L400.2500, L400.5100, L404.6500 ####[facility] ([facility])[address] [place] [phone] Nivar, MD Sodium molar conc 142 mmol/L Normal 135-145 [facility] Comment on above: Performed By: #### L 400.0202, L400.0302, L400.2200, L400.2500, L400.5100, L404.6500 ####[facility] ([facility])[address] [place] [phone] Nivar, MD Urea nitrogen mass conc 35 mg/dL High 7-20 [facility] Comment on above: Performed By: #### L 400.0202, L400.0302, L400.2200, L400.2500, L400.5100, L404.6500 ####[facility] ([facility])[address] [place] [phone] Nivar, MD CBC with Differentialon 10-2 Abs Baso Count 100 /cmm Normal 0-200 [facility] Comment on above: Performed By: #### L 400.0202, L400.0302, L400.2200, L400.2500, L400.5100, L404.6500 ####[facility] ([facility])[address], [place] [phone] Nivar, MD Abs Eos Count 700 /cmm High 0-500 [facility] Comment on above: Performed By: #### L 400.0202, L400.0302, L400.2200, L400.2500, L400.5100, L404.6500 ####[facility] ([facility])[address], [place] [phone] Nivar, MD Abs [place] Count 1000 /cmm High 0-800 [facility] Comment on above: Performed By: #### L 400.0202, L400.0302, L400.2200, L400.2500, L400.5100, L404.6500 ####[facility] ([facility])[address], [place] [phone] Nivar, MD Abs Neut Count 13801 /cmm High 8662-2726 [facility] Comment on above: Performed By: #### L 400.0202, L400.0302, L400.2200, L400.2500, L400.5100, L404.6500 ####Main [facility] ([facility])[address], [place] [phone] Nivar, MD Basophils Auto #/vol (Bld) 0.5 % Normal 0-2 [facility] Comment on above: Performed By: #### L 400.0202, L400.0302, L400.2200, L400.2500, L400.5100, L404.6500 ####[facility] ([facility])[address], [place] [phone] Nivar, MD EOS-Auto Diff 3.5 % Normal 0-6 [facility] Comment on above: Performed By: #### L 400.0202, L400.0302, L400.2200, L400.2500, L400.5100, L404.6500 ####[facility] ([facility])[address] [place] [phone] Nivar, MD Erythrocyte distribution width Auto Ratio (RBC) 17.0 % High 12.0-16.0 [facility] Comment on above: Performed By: #### L 400.0202, L400.0302, L400.2200, L400.2500, L400.5100, L404.6500 ####[facility] ([facility])[address] [place] [phone] Nivar, MD Hematocrit Auto Volume Fraction (Bld) 27.2 % Low 40.0-49.0 [facility] Comment on above: Performed By: #### L 400.0202, L400.0302, L400.2200, L400.2500, L400.5100, L404.6500 ####[facility] ([facility])[address] [place] [phone] Nivar, MD Hemoglobin mass conc (Bld) 8.2 g/dL Low 13.5-16.5 [facility] Comment on above: Performed By: #### L 400.0202, L400.0302, L400.2200, L400.2500, L400.5100, L404.6500 ####[facility] ([facility])[address], [place] [phone] Nivar, MD Lymphocytes Auto #/vol (Bld) 3600 /cmm Normal 9480-4774 [facility] Comment on above: Performed By: #### L 400.0202, L400.0302, L400.2200, L400.2500, L400.5100, L404.6500 ####[facility] ([facility])[address], [place] [phone] Nivar, MD Lymphocytes/100 WBC Auto (Bld) 17.6 % Normal 15-45 [facility] Comment on above: Performed By: #### L 400.0202, L400.0302, L400.2200, L400.2500, L400.5100, L404.6500 ####[facility] ([facility])[address] [place] [phone] Nivar, MD MCH Auto Entitic mass (RBC) 28.4 pg Normal 27.5-33.0 [facility] Comment on above: Performed By: #### L 400.0202, L400.0302, L400.2200, L400.2500, L400.5100, L404.6500 ####[facility] ([facility])[address] [place] [place] [phone] Nivar, MD MCHC Auto mass conc (RBC) 30.3 g/dL Low 33.0-36.0 [facility] Comment on above: Performed By: #### L 400.0202, L400.0302, L400.2200, L400.2500, L400.5100, L404.6500 ####[facility] ([facility])[address] [phone] Nivar, MD MCV Auto Entitic volume (RBC) 93.9 CU SOPHIE Normal 80-97 [facility] Comment on above: Performed By: #### L 400.0202, L400.0302, L400.2200, L400.2500, L400.5100, L404.6500 ####[facility] ([facility])[address] [place] [phone] Nivar, MD [place]- Auto Diff 4.9 % Normal 2-10 [facility] Comment on above: Performed By: #### L 400.0202, L400.0302, L400.2200, L400.2500, L400.5100, L404.6500 ####[facility] ([facility])[address] [phone] Nivar, MD Neut-Auto Diff 73.5 % High 40-70 [facility] Comment on above: Performed By: #### L 400.0202, L400.0302, L400.2200, L400.2500, L400.5100, L404.6500 ####[facility] ([facility])[address] [place] [phone] Nivar, MD NRBC-Auto 0.1 /100 WBC Normal <1 [facility] Comment on above: Performed By: #### L 400.0202, L400.0302, L400.2200, L400.2500, L400.5100, L404.6500 ####[facility] ([facility])[address] [phone] Nivar, MD Platelets Auto #/vol (Bld) 377 th/cmm Normal 150-400 [facility] Comment on above: Performed By: #### L 400.0202, L400.0302, L400.2200, L400.2500, L400.5100, L404.6500 ####[facility] ([facility])[address] [phone] Nivar, MD RBC Auto #/vol (Bld) 2.90 mil/cmm Low 4.50-6.00 [facility] Comment on above: Performed By: #### L 400.0202, L400.0302, L400.2200, L400.2500, L400.5100, L404.6500 ####[facility] ([facility])[address] [phone] Nivar, MD WBC Auto #/vol (Bld) 20.5 th/cmm High 4.4-10.5 [facility] Comment on above: Performed By: #### L 400.0202, L400.0302, L400.2200, L400.2500, L400.5100, L404.6500 ####Main [facility] ([facility])[address] [place] [phone] Nivar, MD Clostridium difficile by PCR on 02-22-2018 Clostridium difficile by PCR Negative Normal Negative [facility] Comment on above: Result Comment: Meth odology: Nucleic Acid Amplification (Polymerase Chain Reaction,PCR)Positive C. Diffs should not be retested for 7 days.No testing on formed stools.For questions, please contact Microbiology lab at [phone].Performance characteristics of this assay have not beenevaluated in patients under 18 years of age. Significanceof positive results in children younger than 1 year isquestionable since they may be asymptomatically colonized. Performed By: #### L 400.0202, L400.0302, L400.2200, L400.2500, L400.5100, L404.6500 ####[facility] ([facility])[address] [place] [phone] Nivar, MD Hepatic Function Panel (Live r)on 02-22-2018 Albumin mass conc 3.1 g/dL Low 3.5-5.0 [facility] Comment on above: Performed By: #### L 400.0202, L400.0302, L400.2200, L400.2500, L400.5100, L404.6500 ####[facility] ([facility])[address] [place] [phone] Nivar, MD Alk Phos 167 IU/L High 41-137 [facility] Comment on above: Performed By: #### L 400.0202, L400.0302, L400.2200, L400.2500, L400.5100, L404.6500 ####[facility] ([facility])[address] [place] [phone] Nivar, MD ALT/SGPT 31 IU/L Normal 10-40 [facility] Comment on above: Performed By: #### L 400.0202, L400.0302, L400.2200, L400.2500, L400.5100, L404.6500 ####[facility] ([facility])[address], [place] [phone] Nivar, MD AST/SGOT 32 IU/L Normal 15-41 [facility] Comment on above: Performed By: #### L 400.0202, L400.0302, L400.2200, L400.2500, L400.5100, L404.6500 ####[facility] ([facility])[address] [place], [place] [phone] Nivar, MD Bili,Direct 0.1 mg/dL Normal 0.1-0.2 [facility] Comment on above: Performed By: #### L 400.0202, L400.0302, L400.2200, L400.2500, L400.5100, L404.6500 ####[facility] ([facility])[address] [place], [place] [phone] Nivar, MD Bili,Total 0.4 mg/dL Normal 0.2-1.0 [facility] Comment on above: Performed By: #### L 400.0202, L400.0302, L400.2200, L400.2500, L400.5100, L404.6500 ####[facility] ([facility])[address], [place] [phone] Nivar, MD Protein mass conc 7.6 g/dL Normal 6.2-8.0 [facility] Comment on above: Performed By: #### L 400.0202, L400.0302, L400.2200, L400.2500, L400.5100, L404.6500 ####[facility] ([facility])[address] [place], [place] [phone] Nivar, MD Magnesiumon 02-22-2018 Magnesium mass conc 1.6 mg/dL Low 1.8-2.5 [facility] Comment on above: Performed By: #### L 400.0202, L400.0302, L400.2200, L400.2500, L400.5100, L404.6500 ####[facility] ([facility])[address] [place] [phone] Nivar, MD Phosphoruson 02-22-2018 Phosphate mass conc 1.8 mg/dL Low 2.4-4.7 [facility] Comment on above: Performed By: #### L 400.0202, L400.0302, L400.2200, L400.2500, L400.5100, L404.6500 ####[facility] ([facility])[address] [place] [phone] Nivar, MD Prealbuminon 02-22-2018 Prealbumin mass conc 11.7 mg/dL Low 16.0-38.0 [facility] Comment on above: Performed By: #### L 400.0202, L400.0302, L400.2200, L400.2500, L400.5100, L404.6500 ####[facility] ([facility])[address] [place] [phone] Nivar, MD Triglycerideson 02-22-2018 Triglyceride mass conc 169 mg/dL High <150 [facility] Comment on above: Performed By: #### L 400.0202, L400.0302, L400.2200, L400.2500, L400.5100, L404.6500 ####[facility] ([facility])[address] [place] [phone] Nivar, MD Basic Metabolic,Non-Fastingo n 02-21-2018 Anion gap 3 molar conc 9 mmol/L Normal 4-12 [facility] Comment on above: Performed By: #### L 400.0202, L400.0302, L400.2200, L400.2500, L400.5100, L404.6500 ####[facility] ([facility])[address] [place] [phone] Nivar, MD Calcium mass conc 7.6 mg/dL Low 8.8-10.5 [facility] Comment on above: Performed By: #### L 400.0202, L400.0302, L400.2200, L400.2500, L400.5100, L404.6500 ####[facility] ([facility])[address] [place] [phone] Nivar, MD Chloride molar conc 112 mmol/L High 101-111 [facility] Comment on above: Performed By: #### L 400.0202, L400.0302, L400.2200, L400.2500, L400.5100, L404.6500 ####[facility] ([facility])[address] [place] [phone] Nivar, MD CO2 molar conc 20 mmol/L Low 21-32 [facility] Comment on above: Performed By: #### L 400.0202, L400.0302, L400.2200, L400.2500, L400.5100, L404.6500 ####[facility] ([facility])[address] [place] [phone] Nivar, MD Creatinine mass conc 1.48 mg/dL High 0.70-1.30 [facility] Comment on above: Performed By: #### L 400.0202, L400.0302, L400.2200, L400.2500, L400.5100, L404.6500 ####[facility] ([facility])[address] [place] [phone] Nivar, MD GFR/1.73 sq M predicted among non-blacks MDRD vol rate/area (S/P/Bld) 59 mL/min/{1.73_m2} Low [facility] Comment on above: Result Comment: Pigeon Fancier usha Kidney Disease stages by NKDFStage eGFR I >90 II 60-89 III 30-59 IV 15-29 V <15 or dialysisAGE(years) AVERAGE GFR 50-59 93 ml/min/1.73 square metersNote:This result is normalized to 1.73 square meter body surface area. Height and weight are not factored. Performed By: #### L 400.0202, L400.0302, L400.2200, L400.2500, L400.5100, L404.6500 ####[facility] ([facility])[address] [place], [place] [phone] Nivar, MD Glucose mass conc 120 mg/dL High 70-110 [facility] Comment on above: Performed By: #### L 400.0202, L400.0302, L400.2200, L400.2500, L400.5100, L404.6500 ####[facility] ([facility])[address] [place], [place] [phone] Nivar, MD Potassium molar conc 3.6 mmol/L Normal 3.6-5.0 [facility] Comment on above: Performed By: #### L 400.0202, L400.0302, L400.2200, L400.2500, L400.5100, L404.6500 ####[facility] ([facility])[address] [place], [place] [phone] Nivar, MD Sodium molar conc 141 mmol/L Normal 135-145 [facility] Comment on above: Performed By: #### L 400.0202, L400.0302, L400.2200, L400.2500, L400.5100, L404.6500 ####[facility] ([facility])[address] [place], [place] [phone] Nivar, MD Urea nitrogen mass conc 39 mg/dL High 7-20 [facility] Comment on above: Performed By: #### L 400.0202, L400.0302, L400.2200, L400.2500, L400.5100, L404.6500 ####[facility] ([facility])[address] [place], [place] [phone] Nivar, MD Basic Metabolic,Non-Fastingo n 02-20-2018 Anion gap 3 molar conc 7 mmol/L Normal 4-12 [facility] Comment on above: Performed By: #### L 400.0202, L400.0302, L400.2200, L400.2500, L400.5100, L404.6500 ####[facility] ([facility])[address], [place] [phone] Nivar, MD Calcium mass conc 7.6 mg/dL Low 8.8-10.5 [facility] Comment on above: Performed By: #### L 400.0202, L400.0302, L400.2200, L400.2500, L400.5100, L404.6500 ####[facility] ([facility])[address], [place] [phone] Nivar, MD Chloride molar conc 118 mmol/L High 101-111 [facility] Comment on above: Performed By: #### L 400.0202, L400.0302, L400.2200, L400.2500, L400.5100, L404.6500 ####[facility] ([facility])[address], [place] [phone] Nivar, MD CO2 molar conc 20 mmol/L Low 21-32 [facility] Comment on above: Performed By: #### L 400.0202, L400.0302, L400.2200, L400.2500, L400.5100, L404.6500 ####[facility] ([facility])[address] [phone] Nivar, MD Creatinine mass conc 1.54 mg/dL High 0.70-1.30 [facility] Comment on above: Performed By: #### L 400.0202, L400.0302, L400.2200, L400.2500, L400.5100, L404.6500 ####[facility] ([facility])[address] [place] [place] [phone] Nivar, MD GFR/1.73 sq M predicted among non-blacks MDRD vol rate/area (S/P/Bld) 57 mL/min/{1.73_m2} Low [facility] Comment on above: Result Comment: [place] Fancier usha Kidney Disease stages by NKDFStage eGFR I >90 II 60-89 III 30-59 IV 15-29 V <15 or dialysisAGE(years) AVERAGE GFR 50-59 93 ml/min/1.73 square metersNote:This result is normalized to 1.73 square meter body surface area. Height and weight are not factored. Performed By: #### L 400.0202, L400.0302, L400.2200, L400.2500, L400.5100, L404.6500 ####[facility] ([facility])[address] [place] [phone] Nivar, MD Glucose mass conc 121 mg/dL High 70-110 [facility] Comment on above: Performed By: #### L 400.0202, L400.0302, L400.2200, L400.2500, L400.5100, L404.6500 ####[facility] ([facility])[address] [phone] Nivar, MD Potassium molar conc 3.4 mmol/L Low 3.6-5.0 [facility] Comment on above: Performed By: #### L 400.0202, L400.0302, L400.2200, L400.2500, L400.5100, L404.6500 ####[facility] ([facility])[address] [place] [phone] Nivar, MD Sodium molar conc 145 mmol/L Normal 135-145 [facility] Comment on above: Result Comment: Delt a: 150 on 02/19/18-0414 Performed By: #### L 400.0202, L400.0302, L400.2200, L400.2500, L400.5100, L404.6500 ####[facility] ([facility])[address] [phone] Nivar, MD Urea nitrogen mass conc 48 mg/dL High 7-20 [facility] Comment on above: Performed By: #### L 400.0202, L400.0302, L400.2200, L400.2500, L400.5100, L404.6500 ####[facility] ([facility])[address] [place] [phone] Nivar, MD Basic Metabolic,Non-Fastingo n 02-19-2018 Anion gap 3 molar conc 11 mmol/L Normal 4-12 [facility] Comment on above: Performed By: #### L 400.0202, L400.0302, L400.2200, L400.2500, L400.5100, L404.6500 ####[facility] ([facility])[address] [phone] Nivar, MD Calcium mass conc 8.4 mg/dL Low 8.8-10.5 [facility] Comment on above: Performed By: #### L 400.0202, L400.0302, L400.2200, L400.2500, L400.5100, L404.6500 ####[facility] ([facility])[address] [phone] Nivar, MD Chloride molar conc 119 mmol/L High 101-111 [facility] Comment on above: Performed By: #### L 400.0202, L400.0302, L400.2200, L400.2500, L400.5100, L404.6500 ####[facility] ([facility])[address] [place] [phone] Nivar, MD CO2 molar conc 20 mmol/L Low 21-32 [facility] Comment on above: Performed By: #### L 400.0202, L400.0302, L400.2200, L400.2500, L400.5100, L404.6500 ####[facility] ([facility])[address] [place] [phone] Nivar, MD Creatinine mass conc 1.85 mg/dL High 0.70-1.30 [facility] Comment on above: Performed By: #### L 400.0202, L400.0302, L400.2200, L400.2500, L400.5100, L404.6500 ####[facility] ([facility])[address] [phone] Nivar, MD GFR/1.73 sq M predicted among non-blacks MDRD vol rate/area (S/P/Bld) 46 mL/min/{1.73_m2} Low [facility] Comment on above: Result Comment: [place] Fancier usha Kidney Disease stages by NKDFStage eGFR I >90 II 60-89 III 30-59 IV 15-29 V <15 or dialysisAGE(years) AVERAGE GFR 50-59 93 ml/min/1.73 square metersNote:This result is normalized to 1.73 square meter body surface area. Height and weight are not factored. Performed By: #### L 400.0202, L400.0302, L400.2200, L400.2500, L400.5100, L404.6500 ####[facility] ([facility])[address] [place] [phone] Nivar, MD Glucose mass conc 89 mg/dL Normal 70-110 [facility] Comment on above: Result Comment: *Thi s reference range applies to fasting specimens only. Performed By: #### L 400.0202, L400.0302, L400.2200, L400.2500, L400.5100, L404.6500 ####[facility] ([facility])[address] [place] [phone] Nivar, MD Potassium molar conc 4.1 mmol/L Normal 3.6-5.0 [facility] Comment on above: Performed By: #### L 400.0202, L400.0302, L400.2200, L400.2500, L400.5100, L404.6500 ####[facility] ([facility])[address] [place] [phone] Nivar, MD Sodium molar conc 150 mmol/L High 135-145 [facility] Comment on above: Result Comment: Delt a: 145 on 02/18/18 Performed By: #### L 400.0202, L400.0302, L400.2200, L400.2500, L400.5100, L404.6500 ####[facility] ([facility])[address] [place] [phone] Nivar, MD Urea nitrogen mass conc 70 mg/dL High 7-20 [facility] Comment on above: Performed By: #### L 400.0202, L400.0302, L400.2200, L400.2500, L400.5100, L404.6500 ####[facility] ([facility])[address] [phone] Nivar, MD Cult,Bloodon 02-19-2018 Cult,Blood Specimen Description .BLOOD Special Requests R FOREARM 6ML Culture NO GROWTH 6 DAYS Report Status FINAL 02/19/2018 Normal [facility] Comment on above: Performed By: #### E RTPF, CONNER, LIP, LIVP, TEGCR ####[facility] [address] [place] [address] Cult,Blood Specimen Description .BLOOD Special Requests RT HAND 1ML Culture NO GROWTH 6 DAYS Report Status FINAL 02/19/2018 Normal [facility] Comment on above: Performed By: #### E RTPF, CONNER, LIP, LIVP, TEGCR ####[facility] [address] [place], [place] [id number] XR CHEST PORTABLEon 02-20-20 XR CHEST PORTABLE [...] by:NADEGE Ellisigned by:Herminio Cardenas MD02/19/18inal result Normal [facility] Basic Metabolic,Non-Fastingo n 02-18-2018 Anion gap 3 molar conc 9 mmol/L Normal 4-12 [facility] Comment on above: Performed By: #### L 400.0202, L400.0302, L400.2200, L400.2500, L400.5100, L404.6500 ####[facility] ([facility])[address], [place] [phone] Nivar, MD Calcium mass conc 8.3 mg/dL Low 8.8-10.5 [facility] Comment on above: Performed By: #### L 400.0202, L400.0302, L400.2200, L400.2500, L400.5100, L404.6500 ####[facility] ([facility])[address] [place] [phone] Nivar, MD Chloride molar conc 113 mmol/L High 101-111 [facility] Comment on above: Performed By: #### L 400.0202, L400.0302, L400.2200, L400.2500, L400.5100, L404.6500 ####[facility] ([facility])[address] [place] [phone] Nivar, MD CO2 molar conc 23 mmol/L Normal 21-32 [facility] Comment on above: Performed By: #### L 400.0202, L400.0302, L400.2200, L400.2500, L400.5100, L404.6500 ####[facility] ([facility])[address] [place] [phone] Nivar, MD Creatinine mass conc 1.90 mg/dL High 0.70-1.30 [facility] Comment on above: Performed By: #### L 400.0202, L400.0302, L400.2200, L400.2500, L400.5100, L404.6500 ####[facility] ([facility])[address] [place] [phone] Nivar, MD GFR/1.73 sq M predicted among non-blacks MDRD vol rate/area (S/P/Bld) 45 mL/min/{1.73_m2} Low [facility] Comment on above: Result Comment: [place] Fancier usha Kidney Disease stages by NKDFStage eGFR I >90 II 60-89 III 30-59 IV 15-29 V <15 or dialysisAGE(years) AVERAGE GFR 50-59 93 ml/min/1.73 square metersNote:This result is normalized to 1.73 square meter body surface area. Height and weight are not factored. Performed By: #### L 400.0202, L400.0302, L400.2200, L400.2500, L400.5100, L404.6500 ####Main Laboratory ([facility])[address] [phone] Nivar, MD Glucose mass conc 142 mg/dL High 70-110 [facility] Comment on above: Performed By: #### L 400.0202, L400.0302, L400.2200, L400.2500, L400.5100, L404.6500 ####Main Laboratory ([facility])[address] [place] [phone] Nivar, MD Potassium molar conc 3.6 mmol/L Normal 3.6-5.0 [facility] Comment on above: Performed By: #### L 400.0202, L400.0302, L400.2200, L400.2500, L400.5100, L404.6500 ####Main Laboratory ([facility])[address] [phone] Nivar, MD Sodium molar conc 145 mmol/L Invalid Interpretation Code 135-145 [facility] Comment on above: Result Comment: Delt a: 139 on 02/17/183 Performed By: #### L 400.0202, L400.0302, L400.2200, L400.2500, L400.5100, L404.6500 ####Main Laboratory ([facility])[address] [phone] Nivar, MD Urea nitrogen mass conc 80 mg/dL High 7-20 [facility] Comment on above: Performed By: #### L 400.0202, L400.0302, L400.2200, L400.2500, L400.5100, L404.6500 ####Main Laboratory ([facility])[address], [place] [phone] Nivar, MD Hepatic Function Panel (Live r)on 02-18-2018 Albumin mass conc 3.0 g/dL Low 3.5-5.0 [facility] Comment on above: Performed By: #### L 400.0202, L400.0302, L400.2200, L400.2500, L400.5100, L404.6500 ####[facility] ([facility])[address], [place] [phone] Nivar, MD Alk Phos 222 IU/L High 41-137 [facility] Comment on above: Performed By: #### L 400.0202, L400.0302, L400.2200, L400.2500, L400.5100, L404.6500 ####[facility] ([facility])[address], [place] [phone] Nivar, MD ALT/SGPT 52 IU/L High 10-40 [facility] Comment on above: Performed By: #### L 400.0202, L400.0302, L400.2200, L400.2500, L400.5100, L404.6500 ####[facility] ([facility])[address], [place] [phone] Nivar, MD AST/SGOT 39 IU/L Normal 15-41 [facility] Comment on above: Performed By: #### L 400.0202, L400.0302, L400.2200, L400.2500, L400.5100, L404.6500 ####[facility] ([facility])[address], [place] [phone] Nivar, MD Bili,Direct 0.3 mg/dL High 0.1-0.2 [facility] Comment on above: Performed By: #### L 400.0202, L400.0302, L400.2200, L400.2500, L400.5100, L404.6500 ####[facility] ([facility])[address] [place] [phone] Nivar, MD Bili,Total 0.3 mg/dL Normal 0.2-1.0 [facility] Comment on above: Result Comment: Delt a: 1.3 on 02/16/18 Performed By: #### L 400.0202, L400.0302, L400.2200, L400.2500, L400.5100, L404.6500 ####[facility] ([facility])[address] [place] [phone] Nivar, MD Protein mass conc 7.9 g/dL Normal 6.2-8.0 [facility] Comment on above: Performed By: #### L 400.0202, L400.0302, L400.2200, L400.2500, L400.5100, L404.6500 ####[facility] ([facility])[address] [place] [phone] Nivar, MD Ionized Calciumon 02-18-2018 Ionized Calcium 1.24 mmol/L Normal 1.15-1.29 [facility] Comment on above: Performed By: #### L 400.0202, L400.0302, L400.2200, L400.2500, L400.5100, L404.6500 ####[facility] ([facility])[address] [place], [place] [phone] Nivar, MD Magnesiumon 02-18-2018 Magnesium mass conc 2.0 mg/dL Normal 1.8-2.5 [facility] Comment on above: Performed By: #### L 400.0202, L400.0302, L400.2200, L400.2500, L400.5100, L404.6500 ####[facility] ([facility])[address] [place], [place] [phone] Nivar, MD Phosphoruson 02-18-2018 Phosphate mass conc 2.9 mg/dL Normal 2.4-4.7 [facility] Comment on above: Performed By: #### L 400.0202, L400.0302, L400.2200, L400.2500, L400.5100, L404.6500 ####[facility] ([facility])[address] [place] [phone] Nivar, MD Sputum culture/ smearon 02-01 INR [...] Clavulanate >64 R Trimethoprim/Sulfamethoxazole <=2/38 S Normal [facility] Comment on above: Performed By: #### L 400.0202, L400.0302, L400.2200, L400.2500, L400.5100, L404.6500 ####[facility] ([facility])[address] [place] [phone] Nivar, MD Basic Metabolic,Non-Fastingo n 02-17-2018 Urea nitrogen mass conc 102 mg/dL High 7-20 [facility] Comment on above: Performed By: #### L 400.0152, L400.2200, L400.5100 ####[facility] ([facility])[address] [phone] Nivar, MD Anion gap 3 molar conc 12 mmol/L Normal 4-12 [facility] Comment on above: Performed By: #### L 400.0152, L400.2200, L400.5100 ####[facility] ([facility])[address] [phone] Nivar, MD Calcium mass conc 7.9 mg/dL Low 8.8-10.5 [facility] Comment on above: Performed By: #### L 400.0152, L400.2200, L400.5100 ####[facility] ([facility])[address] [phone] Nivar, MD Chloride molar conc 105 mmol/L Normal 101-111 [facility] Comment on above: Performed By: #### L 400.0152, L400.2200, L400.5100 ####[facility] ([facility])[address] [phone] Nivar, MD CO2 molar conc 22 mmol/L Normal 21-32 [facility] Comment on above: Performed By: #### L 400.0152, L400.2200, L400.5100 ####[facility] ([facility])[address] [phone] Nivar, MD Creatinine mass conc 2.19 mg/dL High 0.70-1.30 [facility] Comment on above: Performed By: #### L 400.0152, L400.2200, L400.5100 ####[facility] ([facility])[address] [phone] Nivar, MD GFR/1.73 sq M predicted among non-blacks MDRD vol rate/area (S/P/Bld) 38 mL/min/{1.73_m2} Low [facility] Comment on above: Result Comment: Pigeon Fancier usha Kidney Disease stages by NKDFStage eGFR I >90 II 60-89 III 30-59 IV 15-29 V <15 or dialysisAGE(years) AVERAGE GFR 50-59 93 ml/min/1.73 square metersNote:This result is normalized to 1.73 square meter body surface area. Height and weight are not factored. Performed By: #### L 400.0152, L400.2200, L400.5100 ####[facility] ([facility])[address] [phone] Nivar, MD Glucose mass conc 150 mg/dL High 70-110 [facility] Comment on above: Performed By: #### L 400.0152, L400.2200, L400.5100 ####[facility] ([facility])[address] [phone] Nivar, MD Potassium molar conc 3.2 mmol/L Low 3.6-5.0 [facility] Comment on above: Performed By: #### L 400.0152, L400.2200, L400.5100 ####[facility] ([facility])[address] [phone] Nivar, MD Sodium molar conc 139 mmol/L Normal 135-145 [facility] Comment on above: Performed By: #### L 400.0152, L400.2200, L400.5100 ####[facility] ([facility])[address] [phone] Nivar, MD Cult,Bloodon 02-17-2018 Cult,Blood Specimen Description .BLOOD Special Requests LAC 0.02 ML Culture NO GROWTH 6 DAYS Report Status FINAL 02/17/2018 Normal [facility] Comment on above: Performed By: #### E RTPF, CONNER, LIP, LIVP, TEGCR ####[facility] [address] [place], [place] 8170508 Cult,Blood Specimen Description .BLOOD Special Requests RAC 0.01 ML Culture NO GROWTH 6 DAYS Report Status FINAL 02/17/2018 Normal [facility] Comment on above: Performed By: #### E RTPF, CONNER, LIP, LIVP, TEGCR ####[facility] [address] [place] [address] MRSA screen, nasalon 018 MRSA screen, nasal No growth of MRSA. Normal [facility] Comment on above: Performed By: #### L 400.0202, L400.0302, L400.2200, L400.2500, L400.5100, L404.6500 ####[facility] ([facility])[address] [phone] Nivar, MD Magnesiumon 02-17-2018 Magnesium mass conc 2.1 mg/dL Normal 1.8-2.5 [facility] Comment on above: Performed By: #### L 400.0152, L400.2200, L400.5100 ####[facility] ([facility])[address] [phone] Nivar, MD Phosphoruson 02-17-2018 Phosphate mass conc 3.6 mg/dL Normal 2.4-4.7 [facility] Comment on above: Performed By: #### L 400.0152, L400.2200, L400.5100 ####[facility] ([facility])[address], [place] [phone] Nivar, MD VRE screen, fecon 02-17-2018 VRE screen, fec No growth of Vancomy get Resistant Enterococcus (VRE). Normal [facility] Comment on above: Performed By: #### L 400.0202, L400.0302, L400.2200, L400.2500, L400.5100, L404.6500 ####[facility] ([facility])[address] [place] [phone] Nivar, MD Basic Metabolic Panel,Fastin sabas 02-16-2018 Urea nitrogen mass conc 105 mg/dL High 7-20 [facility] Comment on above: Performed By: #### L 400.0202, L400.0302, L400.2200, L400.2500, L400.5100, L404.6500 ####[facility] ([facility])[address] [place] [phone] Nivar, MD Anion gap 3 molar conc 14 mmol/L High 4-12 [facility] Comment on above: Performed By: #### L 400.0202, L400.0302, L400.2200, L400.2500, L400.5100, L404.6500 ####[facility] ([facility])[address] [place] [phone] Nivar, MD Calcium mass conc 8.7 mg/dL Low 8.8-10.5 [facility] Comment on above: Performed By: #### L 400.0202, L400.0302, L400.2200, L400.2500, L400.5100, L404.6500 ####[facility] ([facility])[address] [place] [phone] Nivar, MD Chloride molar conc 101 mmol/L Normal 101-111 [facility] Comment on above: Performed By: #### L 400.0202, L400.0302, L400.2200, L400.2500, L400.5100, L404.6500 ####[facility] ([facility])[address], [place] [phone] Nivar, MD CO2 molar conc 26 mmol/L Normal 21-32 [facility] Comment on above: Performed By: #### L 400.0202, L400.0302, L400.2200, L400.2500, L400.5100, L404.6500 ####[facility] ([facility])[address] [place] [phone] Nivar, MD Creatinine mass conc 2.40 mg/dL High 0.70-1.30 [facility] Comment on above: Performed By: #### L 400.0202, L400.0302, L400.2200, L400.2500, L400.5100, L404.6500 ####[facility] ([facility])[address] [place] [phone] Nivar, MD GFR/1.73 sq M predicted among non-blacks MDRD vol rate/area (S/P/Bld) 28 mL/min/{1.73_m2} Low [facility] Comment on above: Result Comment: Pigeon Fancier usha Kidney Disease stages by NKDFStage eGFR I >90 II 60-89 III 30-59 IV 15-29 V <15 or dialysisAGE(years) AVERAGE GFR 50-59 93 ml/min/1.73 square metersNote:This result is normalized to 1.73 square meter body surface area. Height and weight are not factored. Performed By: #### L 400.0202, L400.0302, L400.2200, L400.2500, L400.5100, L404.6500 ####[facility] ([facility])[address] [place] [phone] Nivar, MD Glucose mass conc 168 mg/dL High 70-110 [facility] Comment on above: Performed By: #### L 400.0202, L400.0302, L400.2200, L400.2500, L400.5100, L404.6500 ####[facility] ([facility])[address] [place] [phone] Nivar, MD Potassium molar conc 3.4 mmol/L Low 3.6-5.0 [facility] Comment on above: Performed By: #### L 400.0202, L400.0302, L400.2200, L400.2500, L400.5100, L404.6500 ####[facility] ([facility])[address] [phone] Nivar, MD Sodium molar conc 141 mmol/L Normal 135-145 [facility] Comment on above: Performed By: #### L 400.0202, L400.0302, L400.2200, L400.2500, L400.5100, L404.6500 ####[facility] ([facility])[address] [phone] Nivar, MD CBC with Differentialon 02-01 Abs Baso Count 100 /cmm Normal 0-200 [facility] Comment on above: Performed By: #### L 100.0000 ####[facility] ([facility])[address] [phone] Nivar, MD Abs Eos Count 200 /cmm Normal 0-500 [facility] Comment on above: Performed By: #### L 100.0000 ####[facility] ([facility])[address] [phone] Nivar, MD Abs [place] Count 1700 /cmm High 0-800 [facility] Comment on above: Performed By: #### L 100.0000 ####[facility] ([facility])[address] [phone] Nivar, MD Abs Neut Count 95875 /cmm High 8509-6525 [facility] Comment on above: Performed By: #### L 100.0000 ####[facility] ([facility])[address] [phone] Nivar, MD Basophils Auto #/vol (Bld) 0.4 % Normal 0-2 [facility] Comment on above: Performed By: #### L 100.0000 ####[facility] ([facility])[address], [place] [phone] Nivar, MD EOS-Auto Diff 0.6 % Normal 0-6 [facility] Comment on above: Performed By: #### L 100.0000 ####[facility] ([facility])[address] [place], [place] [phone] Nivar, MD Erythrocyte distribution width Auto Ratio (RBC) 16.9 % High 12.0-16.0 [facility] Comment on above: Performed By: #### L 100.0000 ####[facility] ([facility])[address] [phone] Nivar, MD Hematocrit Auto Volume Fraction (Bld) 26.1 % Low 40.0-49.0 [facility] Comment on above: Performed By: #### L 100.0000 ####[facility] ([facility])[address] [place] [phone] Nivar, MD Hemoglobin mass conc (Bld) 8.3 g/dL Low 13.5-16.5 [facility] Comment on above: Performed By: #### L 100.0000 ####[facility] ([facility])[address], [place] [phone] Nivar, MD Lymphocytes Auto #/vol (Bld) 2000 /cmm Normal 7344-9134 [facility] Comment on above: Performed By: #### L 100.0000 ####[facility] ([facility])[address], [place] [phone] Nivar, MD Lymphocytes/100 WBC Auto (Bld) 7.0 % Low 15-45 [facility] Comment on above: Performed By: #### L 100.0000 ####[facility] ([facility])[address] [phone] Nivar, MD MCH Auto Entitic mass (RBC) 29.1 pg Normal 27.5-33.0 [facility] Comment on above: Performed By: #### L 100.0000 ####[facility] ([facility])[address] [phone] Nivar, MD MCHC Auto mass conc (RBC) 31.8 g/dL Low 33.0-36.0 [facility] Comment on above: Performed By: #### L 100.0000 ####[facility] ([facility])[address] [phone] Nivar, MD MCV Auto Entitic volume (RBC) 91.5 CU SOPHIE Normal 80-97 [facility] Comment on above: Performed By: #### L 100.0000 ####[facility] ([facility])[address] [phone] Nivar, MD Saluda- Auto Diff 5.7 % Normal 2-10 [facility] Comment on above: Performed By: #### L 100.0000 ####[facility] ([facility])[address] [phone] Nivar, MD Neut-Auto Diff 86.3 % High 40-70 [facility] Comment on above: Performed By: #### L 100.0000 ####[facility] ([facility])[address] [phone] Nivar, MD NRBC-Auto 0.1 /100 WBC Normal <1 [facility] Comment on above: Performed By: #### L 100.0000 ####[facility] ([facility])[address] [phone] Nivar, MD Platelets Auto #/vol (Bld) 516 th/cmm High 150-400 [facility] Comment on above: Performed By: #### L 100.0000 ####[facility] ([facility])[address] [place] [phone] Nivar, MD RBC Auto #/vol (Bld) 2.85 mil/cmm Low 4.50-6.00 [facility] Comment on above: Performed By: #### L 100.0000 ####[facility] ([facility])[address] [place] [phone] Nivar, MD WBC Auto #/vol (Bld) 29.1 th/cmm High 4.4-10.5 [facility] Comment on above: Performed By: #### L 100.0000 ####[facility] ([facility])[address] [place], [place] [phone] Nivar, MD Hepatic Function Panel (Live r)on 02-16-2018 Albumin mass conc 3.1 g/dL Low 3.5-5.0 [facility] Comment on above: Performed By: #### L 400.0202, L400.0302, L400.2200, L400.2500, L400.5100, L404.6500 ####[facility] ([facility])[address] [place] [phone] Nivar, MD Alk Phos 240 IU/L High 41-137 [facility] Comment on above: Performed By: #### L 400.0202, L400.0302, L400.2200, L400.2500, L400.5100, L404.6500 ####[facility] ([facility])[address], [place] [phone] Nivar, MD ALT/SGPT 80 IU/L High 10-40 [facility] Comment on above: Performed By: #### L 400.0202, L400.0302, L400.2200, L400.2500, L400.5100, L404.6500 ####[facility] ([facility])[address] [place], [place] [phone] Nivar, MD AST/SGOT 43 IU/L High 15-41 [facility] Comment on above: Performed By: #### L 400.0202, L400.0302, L400.2200, L400.2500, L400.5100, L404.6500 ####[facility] ([facility])[address] [place], [place] [phone] Nivar, MD Bili,Direct 0.6 mg/dL High 0.1-0.2 [facility] Comment on above: Performed By: #### L 400.0202, L400.0302, L400.2200, L400.2500, L400.5100, L404.6500 ####[facility] ([facility])[address] [place], [place] [phone] Nivar, MD Bili,Total 1.3 mg/dL High 0.2-1.0 [facility] Comment on above: Performed By: #### L 400.0202, L400.0302, L400.2200, L400.2500, L400.5100, L404.6500 ####[facility] ([facility])[address] [place], [place] [phone] Nivar, MD Protein mass conc 8.2 g/dL High 6.2-8.0 [facility] Comment on above: Performed By: #### L 400.0202, L400.0302, L400.2200, L400.2500, L400.5100, L404.6500 ####[facility] ([facility])[address] [place], [place] [phone] Nivar, MD Magnesiumon 02-16-2018 Magnesium mass conc 2.3 mg/dL Normal 1.8-2.5 [facility] Comment on above: Performed By: #### L 400.0202, L400.0302, L400.2200, L400.2500, L400.5100, L404.6500 ####[facility] ([facility])[address] [place] [phone] Nivar, MD Phosphoruson 02-16-2018 Phosphate mass conc 3.8 mg/dL Normal 2.4-4.7 [facility] Comment on above: Performed By: #### L 400.0202, L400.0302, L400.2200, L400.2500, L400.5100, L404.6500 ####[facility] ([facility])[address] [place] [phone] Nivar, MD Prealbuminon 02-16-2018 Prealbumin mass conc 11.4 mg/dL Low 16.0-38.0 [facility] Comment on above: Performed By: #### L 400.0202, L400.0302, L400.2200, L400.2500, L400.5100, L404.6500 ####[facility] ([facility])[address] [phone] Nivar, MD Triglycerideson 02-16-2018 Triglyceride mass conc 142 mg/dL Normal <150 [facility] Comment on above: Performed By: #### L 400.0202, L400.0302, L400.2200, L400.2500, L400.5100, L404.6500 ####[facility] ([facility])[address] [place] [phone] Nivar, MD XR ABDOMEN G TUBE PLACEMENTo [...] by:NADEGE Groveigned by:Elizabeth Barone MD02/16/inal result Normal [facility] Basic Metabolic Profon 02-15 Urea nitrogen mass conc 107 mg/dL Critically high 6-20 [facility] Comment on above: Result Comment: Prev ious Alert Value Reported Performed By: #### E RTPF, CONNER, LIP, LIVP, TEGCR ####[address] [id number] (cont.) Normal [facility] Comment on above: Result Comment: Aver age GFR for 50-59 years old: 93 mL/min/1.73sq mChronic Kidney Disease: <60 mL/min/1.73sq mKidney failure: <15 mL/min/1.73sq meGFR calculated using average adult body mass. Additional eGFR calculator available at:http://www.[employer]/multiple_crcl_2012.htm Performed By: #### E RTPF, CONNER, LIP, LIVP, TEGCR ####[facility] [address] [place], [place] 5535208 Anion gap 3 molar conc 19 mmol/L High 9-17 [facility] Comment on above: Performed By: #### E RTPF, CONNER, LIP, LIVP, TEGCR ####[facility] [address] [place], [place] 5251808 Calcium mass conc 8.9 mg/dL Normal 8.6-10.4 [facility] Comment on above: Performed By: #### E RTPF, CONNER, LIP, LIVP, TEGCR ####[facility] [address] [place] [address] Chloride molar conc 98 mmol/L Normal 98-107 [facility] Comment on above: Performed By: #### E RTPF, CONNER, LIP, LIVP, TEGCR ####[address] [place] [address] CO2 molar conc 24 mmol/L Normal 20-31 [facility] Comment on above: Performed By: #### E RTPF, CONNER, LIP, LIVP, TEGCR ####[address] [address] Creatinine mass conc 2.51 mg/dL High 0.70-1.[address] [facility] Comment on above: Performed By: #### E RTPF, CONNER, LIP, LIVP, TEGCR ####[address] [address] GFR, Amer 32 mL/min Low >60 [facility] Comment on above: Performed By: #### E RTPF, CONNER, LIP, LIVP, TEGCR ####[facility] [place] [address] GFR,non Amer 27 mL/min Low >[address] [facility] Comment on above: Performed By: #### E RTPF, CONNER, LIP, LIVP, TEGCR ####[facility] [address] [place] [address] Glucose mass conc 146 mg/dL High 70-99 [facility] Comment on above: Performed By: #### E RTPF, CONNER, LIP, LIVP, TEGCR ####[facility] [place] [address] Potassium molar conc 3.3 mmol/L Low 3.7-5.[address] [facility] Comment on above: Performed By: #### E RTPF, CONNER, LIP, LIVP, TEGCR ####[address] [address] Sodium molar conc 141 mmol/L Normal 135-144 [facility] Comment on above: Performed By: #### E RTPF, CONNER, LIP, LIVP, TEGCR ####[address] [address] BUN/CRE Ratio NOT REPORTED Normal 9-20 [facility] Comment on above: Performed By: #### E RTPF, CONNER, LIP, LIVP, TEGCR ####[address] [address] Staging: NOT REPORTED Normal [facility] Comment on above: Performed By: #### E RTPF, CONNER, LIP, LIVP, TEGCR ####[address] [address] CBCon 02-15-2018 Erythrocyte distribution width Auto Ratio (RBC) 16.5 % High 11.8-14.4 [facility] Comment on above: Performed By: #### E RTPF, CONNER, LIP, LIVP, TEGCR ####[address] [address] Hematocrit Auto Volume Fraction (Bld) 27.4 % Low 40.7-50.3 [facility] Comment on above: Performed By: #### E RTPF, CONNER, LIP, LIVP, TEGCR ####[address] [address] Hemoglobin mass conc (Bld) 8.6 g/dL Low 13.0-17.0 [facility] Comment on above: Performed By: #### E RTPF, CONNER, LIP, LIVP, TEGCR ####[address] [address] MCH Auto Entitic mass (RBC) 29.1 pg Normal 25.2-33.5 [facility] Comment on above: Performed By: #### E RTPF, CONNER, LIP, LIVP, TEGCR ####[address] [address] MCHC Auto mass conc (RBC) 31.4 g/dL Normal 28.4-34.8 [facility] Comment on above: Performed By: #### E RTPF, CONNER, LIP, LIVP, TEGCR ####[address] [address] MCV Auto Entitic volume (RBC) 92.6 fL Normal 82.6-102.9 [facility] Comment on above: Performed By: #### E RTPF, CONNER, LIP, LIVP, TEGCR ####[address] [address] NRBC Automated 0.1 per 100 WBC High 0.0 [facility] Comment on above: Performed By: #### E RTPF, CONNER, LIP, LIVP, TEGCR ####[address] [address] Platelet mean volume Auto Entitic volume (Bld) 12.4 fL Normal 8.1-13.5 [facility] Comment on above: Performed By: #### E RTPF, CONNER, LIP, LIVP, TEGCR ####[address] [address] Platelets Auto #/vol (Bld) 533 10*3/uL High 138-453 [facility] Comment on above: Performed By: #### E RTPF, CONNER, LIP, LIVP, TEGCR ####[address] [address] RBC Auto #/vol (Bld) 2.96 10*6/uL Low 4.21-5.77 [facility] Comment on above: Performed By: #### E RTPF, CONNER, LIP, LIVP, TEGCR ####[address] [place] [address] WBC Auto #/vol (Bld) 28.7 10*3/uL High 3.5-11.3 [facility] Comment on above: Performed By: #### E RTPF, CONNER, LIP, LIVP, TEGCR ####[address] [place] [address] Magnesiumon 02-15-2018 Magnesium mass conc 2.4 mg/dL Normal 1.6-2.6 [facility] Comment on above: Performed By: #### E RTPF, CONNER, LIP, LIVP, TEGCR ####[address] [address] Phosphorus, Inorg.on 018 Phosphorus, Inorg. 4.3 mg/dL Normal 2.5-4.5 [facility] Comment on above: Performed By: #### E RTPF, CONNER, LIP, LIVP, TEGCR ####[facility] [address] [place] [address] Basic Metabolic Profon 02-14 Urea nitrogen mass conc 101 mg/dL Critically high 6-20 [facility] Comment on above: Performed By: #### E RTPF, CONNER, LIP, LIVP, TEGCR ####[facility] [address] [place] [address] (cont.) Normal [facility] Comment on above: Result Comment: Aver age GFR for 50-59 years old: 93 mL/min/1.73sq mChronic Kidney Disease: <60 mL/min/1.73sq mKidney failure: <15 mL/min/1.73sq meGFR calculated using average adult body mass. Additional eGFR calculator available at:http://www.[employer].com/multiple_crcl_2012.htm Performed By: #### E RTPF, CONNER, LIP, LIVP, TEGCR ####[address] [place] [address] Anion gap 3 molar conc 20 mmol/L High 9-17 [facility] Comment on above: Performed By: #### E RTPF, CONNER, LIP, LIVP, TEGCR ####[address] [address] Calcium mass conc 9.0 mg/dL Normal 8.6-10.4 [facility] Comment on above: Performed By: #### E RTPF, CONNER, LIP, LIVP, TEGCR ####[address] [address] Chloride molar conc 93 mmol/L Low 98-107 [facility] Comment on above: Performed By: #### E RTPF, CONNER, LIP, LIVP, TEGCR ####[facility] [place] [address] CO2 molar conc 24 mmol/L Normal 20-31 [facility] Comment on above: Performed By: #### E RTPF, CONNER, LIP, LIVP, TEGCR ####[facility] [place] [address] Creatinine mass conc 2.97 mg/dL High 0.70-1.[address] [facility] Comment on above: Performed By: #### E RTPF, CONNER, LIP, LIVP, TEGCR ####[address] [address] GFR, Amer 27 mL/min Low >60 [facility] Comment on above: Performed By: #### E RTPF, CONNER, LIP, LIVP, TEGCR ####[address] [address] GFR,non Amer 22 mL/min Low >[address] [facility] Comment on above: Performed By: #### E RTPF, CONNER, LIP, LIVP, TEGCR ####[address] [address] Glucose mass conc 146 mg/dL High 70-99 [facility] Comment on above: Performed By: #### E RTPF, CONNER, LIP, LIVP, TEGCR ####[address] [address] Potassium molar conc 3.7 mmol/L Normal 3.7-5.[address] [facility] Comment on above: Performed By: #### E RTPF, CONNER, LIP, LIVP, TEGCR ####[address] [address] Sodium molar conc 137 mmol/L Normal 135-144 [facility] Comment on above: Performed By: #### E RTPF, CONNER, LIP, LIVP, TEGCR ####[address] [address] BUN/CRE Ratio NOT REPORTED Normal 9-20 [facility] Comment on above: Performed By: #### E RTPF, CONNER, LIP, LIVP, TEGCR ####[address] [address] Staging: NOT REPORTED Normal [facility] Comment on above: Performed By: #### E RTPF, CONNER, LIP, LIVP, TEGCR ####[address] [address] CBCon 02-14-2018 Erythrocyte distribution width Auto Ratio (RBC) 16.2 % High 11.8-14.4 [facility] Comment on above: Performed By: #### E RTPF, CONNER, LIP, LIVP, TEGCR ####[address] [address] Hematocrit Auto Volume Fraction (Bld) 34.2 % Low 40.7-50.3 [facility] Comment on above: Performed By: #### E RTPF, CONNER, LIP, LIVP, TEGCR ####[address] [address] Hemoglobin mass conc (Bld) 11.2 g/dL Low 13.0-17.0 [facility] Comment on above: Performed By: #### E RTPF, CONNER, LIP, LIVP, TEGCR ####[address] [address] MCH Auto Entitic mass (RBC) 29.2 pg Normal 25.2-33.5 [facility] Comment on above: Performed By: #### E RTPF, CONNER, LIP, LIVP, TEGCR ####[address] [address] MCHC Auto mass conc (RBC) 32.7 g/dL Normal 28.4-34.8 [facility] Comment on above: Performed By: #### E RTPF, CONNER, LIP, LIVP, TEGCR ####[address] [address] MCV Auto Entitic volume (RBC) 89.3 fL Normal 82.6-102.9 [facility] Comment on above: Performed By: #### E RTPF, CONNER, LIP, LIVP, TEGCR ####[address] [address] NRBC Automated 0.3 per 100 WBC High 0.0 [facility] Comment on above: Performed By: #### E RTPF, CONNER, LIP, LIVP, TEGCR ####[address] [address] Platelet mean volume Auto Entitic volume (Bld) 11.4 fL Normal 8.1-13.5 [facility] Comment on above: Performed By: #### E RTPF, CONNER, LIP, LIVP, TEGCR ####[facility] [place] [address] Platelets Auto #/vol (Bld) 145 10*3/uL Normal 138-453 [facility] Comment on above: Performed By: #### E RTPF, CONNER, LIP, LIVP, TEGCR ####[facility] [address] [place] [address] RBC Auto #/vol (Bld) 3.83 10*6/uL Low 4.21-5.77 [facility] Comment on above: Performed By: #### E RTPF, CONNER, LIP, LIVP, TEGCR ####[facility] [place] [address] WBC Auto #/vol (Bld) 19.5 10*3/uL High 3.5-11.3 [facility] Comment on above: Performed By: #### E RTPF, CONNER, LIP, LIVP, TEGCR ####[facility] [place] [address] US RETROPERITONEAL LIMITEDon 02-14-2018 US RETROPERITONEAL LIMITED EXAMINATION:RETROPERITONEAL ULTRASOUND OF THE KIDNEYS AND URINARY [id number]/14/2018COMPARISON:1 CTHISTORY:ORDERING SYSTEM PROVIDED HISTORY: RENAL FAILURE, ACUTE (KIDNEY INJURY)FINDINGS:Kidneys:The right kidney measures 11.3 cm in length and the left kidney measures 12.2cm in length.Mild right renal pelviectasis, better seen on recent CT. No perinephriccollection bilaterally.Bladder:Not imagedIMPRESSION: Mild right renal pelviectasis. Please refer to CT performed 1 day prior.Interpreted by:NADEGE Hoodigned by:Jonathan Jones MD02/14/18inal result Normal [facility] XR CHEST PORTABLEon 02-15-20 18 XR CHEST [...] by:NADEGE Wrightigned by:Cassie Guzmán MD02/14/18inal result Normal [facility] Basic Metabolic Profon 02-13 Urea nitrogen mass conc 102 mg/dL Critically high - [facility] Comment on above: Performed By: #### E RTPF, CONNER, LIP, LIVP, TEGCR ####[address] [place] [address] (cont.) Normal [facility] Comment on above: Result Comment: Aver age GFR for 50-59 years old: 93 mL/min/1.73sq mChronic Kidney Disease: <60 mL/min/1.73sq mKidney failure: <15 mL/min/1.73sq meGFR calculated using average adult body mass. Additional eGFR calculator available at:http://www.[employer]/multiple_crcl_2012.htm Performed By: #### E RTPF, CONNER, LIP, LIVP, TEGCR ####[facility] [place] [address] Anion gap 3 molar conc 16 mmol/L Normal 9-17 [facility] Comment on above: Performed By: #### E RTPF, CONNER, LIP, LIVP, TEGCR ####[facility] [place] [address] Calcium mass conc 8.7 mg/dL Normal 8.6-10.4 [facility] Comment on above: Performed By: #### E RTPF, CONNER, LIP, LIVP, TEGCR ####[address] [address] Chloride molar conc 98 mmol/L Normal 98-107 [facility] Comment on above: Performed By: #### E RTPF, CONNER, LIP, LIVP, TEGCR ####[address] [address] CO2 molar conc 20 mmol/L Normal 20-31 [facility] Comment on above: Performed By: #### E RTPF, CONNER, LIP, LIVP, TEGCR ####[address] [address] Creatinine mass conc 3.44 mg/dL High 0.70-1.[address] [facility] Comment on above: Performed By: #### E RTPF, CONNER, LIP, LIVP, TEGCR ####[address] [place] [address] GFR, Amer 22 mL/min Low >60 [facility] Comment on above: Performed By: #### E RTPF, CONNER, LIP, LIVP, TEGCR ####[address] [place] [address] GFR,non Amer 19 mL/min Low >[address] [facility] Comment on above: Performed By: #### E RTPF, CONNER, LIP, LIVP, TEGCR ####[address] [place] [address] Glucose mass conc 151 mg/dL High 70-99 [facility] Comment on above: Performed By: #### E RTPF, CONNER, LIP, LIVP, TEGCR ####[address] [address] Potassium molar conc 4.5 mmol/L Normal 3.7-5.[address] [facility] Comment on above: Performed By: #### E RTPF, CONNER, LIP, LIVP, TEGCR ####[address] [address] Sodium molar conc 134 mmol/L Low 135-144 [facility] Comment on above: Performed By: #### E RTPF, CONNER, LIP, LIVP, TEGCR ####[address] [address] BUN/CRE Ratio NOT REPORTED Normal 9-20 [facility] Comment on above: Performed By: #### E RTPF, CONNER, LIP, LIVP, TEGCR ####[address] [address] Staging: NOT REPORTED Normal [facility] Comment on above: Performed By: #### E RTPF, CONNER, LIP, LIVP, TEGCR ####[address] [address] Brain Natri. Peptideon 02-13 Natriuretic peptide B mass conc (Bld) 769 pg/mL High <300 [facility] Comment on above: Result Comment: Pro- BNP results cannot be compared to BNP results. Performed By: #### E RTPF, CONNER, LIP, LIVP, TEGCR ####[address] [address] Natriuretic peptide B mass conc (Bld) Normal [facility] Comment on above: Result Comment: Pro- BNP Reference Range:Rule Out: <300Grey Zone: Age <50 300-450 Age 50-75 300-900 Age >75 300-1800Usually represents mild to moderate HF but other cardiopulmonary causes cannot be ruled out.Rule In: Age <50 >450 Age 50-75 >900 Age >75 >1800 Performed By: #### E RTPF, CONNER, LIP, LIVP, TEGCR ####[address] [address] CBCon 02-13-2018 Erythrocyte distribution width Auto Ratio (RBC) 16.5 % High 11.8-14.4 [facility] Comment on above: Performed By: #### E RTPF, CONNER, LIP, LIVP, TEGCR ####[address] [address] Hematocrit Auto Volume Fraction (Bld) 24.7 % Low 40.7-50.3 [facility] Comment on above: Performed By: #### E RTPF, CONNER, LIP, LIVP, TEGCR ####[address] [address] Hemoglobin mass conc (Bld) 8.1 g/dL Low 13.0-17.0 [facility] Comment on above: Performed By: #### E RTPF, CONNER, LIP, LIVP, TEGCR ####[address] [address] MCH Auto Entitic mass (RBC) 29.7 pg Normal 25.2-33.5 [facility] Comment on above: Performed By: #### E RTPF, CONNER, LIP, LIVP, TEGCR ####[address] [address] MCHC Auto mass conc (RBC) 32.8 g/dL Normal 28.4-34.8 [facility] Comment on above: Performed By: #### E RTPF, CONNER, LIP, LIVP, TEGCR ####[address] [address] MCV Auto Entitic volume (RBC) 90.5 fL Normal 82.6-102.9 [facility] Comment on above: Performed By: #### E RTPF, CONNER, LIP, LIVP, TEGCR ####[address] [address] NRBC Automated 0.3 per 100 WBC High 0.0 [facility] Comment on above: Performed By: #### E RTPF, CONNER, LIP, LIVP, TEGCR ####[address] [address] Platelet mean volume Auto Entitic volume (Bld) 11.9 fL Normal 8.1-13.5 [facility] Comment on above: Performed By: #### E RTPF, CONNER, LIP, LIVP, TEGCR ####[address] [address] Platelets Auto #/vol (Bld) 490 10*3/uL High 138-453 [facility] Comment on above: Performed By: #### E RTPF, CONNER, LIP, LIVP, TEGCR ####[address] [address] RBC Auto #/vol (Bld) 2.73 10*6/uL Low 4.21-5.77 [facility] Comment on above: Performed By: #### E RTPF, CONNER, LIP, LIVP, TEGCR ####[address] [address] WBC Auto #/vol (Bld) 25.7 10*3/uL High 3.5-11.3 [facility] Comment on above: Performed By: #### E RTPF, CONNER, LIP, LIVP, TEGCR ####[facility] [place] [address] CT ABDOMEN PELVIS WO CONTRAS Ton 02-13-2018 [...] collections. There is compression deformity at the [id number] body.IMPRESSION: 1. Fluid-filled dilated small bowel loops [...] by:NADEGE Vidaligned by:Anjel Hernandez MD02/13/18Final result Normal [facility] XR ABDOMEN (KUB) (SINGLE AP VIEW)on 02-13-2018 XR ABDOMEN (KUB) (SINGLE AP VIEW) EXAMINATION:SINGLE SUPINE XRAY VIEW(S) OF THE [id number]/13/2018 7:15 amHISTORY:ORDERING SYSTEM PROVIDED HISTORY: abd painTECHNOLOGIST PROVIDED HISTORY:abd painFINDINGS:Air-filled, mildly dilated loops of small and large bowel are identified.Catheter projects over the right lower hemiabdomen. Peg tube in place.Osseous structures grossly intact.IMPRESSION: The appearance of ileus in the gastrointestinal tract has not significantlychanged compared to 02/10/2018Interpreted by:NADEGE Vidaligned by:Anjel Hernandez MD02/13/18inal result Normal [facility] Basic Metabolic Profon 02-12 (cont.) Normal [facility] Comment on above: Result Comment: Aver age GFR for 50-59 years old: 93 mL/min/1.73sq mChronic Kidney Disease: <60 mL/min/1.73sq mKidney failure: <15 mL/min/1.73sq meGFR calculated using average adult body mass. Additional eGFR calculator available at:http://www.[employer]/multiple_crcl_2012.htm Performed By: #### E RTPF, CONNER, LIP, LIVP, TEGCR ####[facility] [address] [place] [address] Anion gap 3 molar conc 16 mmol/L Normal 9-17 [facility] Comment on above: Performed By: #### E RTPF, CONNER, LIP, LIVP, TEGCR ####[facility] [address] [place] [address] Calcium mass conc 8.9 mg/dL Normal 8.6-10.4 [facility] Comment on above: Performed By: #### E RTPF, CONNER, LIP, LIVP, TEGCR ####[facility] [address] [place] [address] Chloride molar conc 96 mmol/L Low 98-107 [facility] Comment on above: Performed By: #### E RTPF, CONNER, LIP, LIVP, TEGCR ####[facility] [address] [place] [address] CO2 molar conc 19 mmol/L Low 20-31 [facility] Comment on above: Performed By: #### E RTPF, CONNER, LIP, LIVP, TEGCR ####[address] [address] Creatinine mass conc 3.22 mg/dL High 0.70-1.[address] [facility] Comment on above: Performed By: #### E RTPF, CONNER, LIP, LIVP, TEGCR ####[address] [address] GFR, Amer 24 mL/min Low >60 [facility] Comment on above: Performed By: #### E RTPF, CONNER, LIP, LIVP, TEGCR ####[address] [address] GFR,non Amer 20 mL/min Low >[address] [facility] Comment on above: Performed By: #### E RTPF, CONNER, LIP, LIVP, TEGCR ####[address] [address] Glucose mass conc 134 mg/dL High 70-99 [facility] Comment on above: Performed By: #### E RTPF, CONNER, LIP, LIVP, TEGCR ####[address] [address] Potassium molar conc 4.1 mmol/L Normal 3.7-5.[address] [facility] Comment on above: Performed By: #### E RTPF, CONNER, LIP, LIVP, TEGCR ####[address] [address] Sodium molar conc 131 mmol/L Low 135-144 [facility] Comment on above: Performed By: #### E RTPF, CONNER, LIP, LIVP, TEGCR ####[facility] [address] [place] [address] Urea nitrogen mass conc 89 mg/dL High - [facility] Comment on above: Performed By: #### E RTPF, CONNER, LIP, LIVP, TEGCR ####[address] [place] [address] BUN/CRE Ratio NOT REPORTED Normal 01-21 [facility] Comment on above: Performed By: #### E RTPF, CONNER, LIP, LIVP, TEGCR ####[address] [place] [address] Staging: NOT REPORTED Normal [facility] Comment on above: Performed By: #### E RTPF, CONNER, LIP, LIVP, TEGCR ####[address] [address] Brain Natri. Peptideon 02-12 Natriuretic peptide B mass conc (Bld) Normal [facility] Comment on above: Result Comment: Pro- BNP Reference Range:Rule Out: <300Grey Zone: Age <50 300-450 Age 50-75 300-900 Age >75 300-1800Usually represents mild to moderate HF but other cardiopulmonary causes cannot be ruled out.Rule In: Age <50 >450 Age 50-75 >900 Age >75 >1800 Performed By: #### E RTPF, CONNER, LIP, LIVP, TEGCR ####[address] [place] [address] Natriuretic peptide B mass conc (Bld) 648 pg/mL High <300 [facility] Comment on above: Result Comment: Pro- BNP results cannot be compared to BNP results. Performed By: #### E RTPF, CONNER, LIP, LIVP, TEGCR ####[address] [place] [address] CBCon 02-12-2018 Erythrocyte distribution width Auto Ratio (RBC) 16.7 % High 11.8-14.4 [facility] Comment on above: Performed By: #### E RTPF, CONNER, LIP, LIVP, TEGCR ####[address] [address] Hematocrit Auto Volume Fraction (Bld) 26.2 % Low 40.7-50.3 [facility] Comment on above: Performed By: #### E RTPF, CONNER, LIP, LIVP, TEGCR ####[address] [address] Hemoglobin mass conc (Bld) 8.4 g/dL Low 13.0-17.0 [facility] Comment on above: Performed By: #### E RTPF, CONNER, LIP, LIVP, TEGCR ####[address] [address] MCH Auto Entitic mass (RBC) 29.5 pg Normal 25.2-33.5 [facility] Comment on above: Performed By: #### E RTPF, CONNER, LIP, LIVP, TEGCR ####[address] [address] MCHC Auto mass conc (RBC) 32.1 g/dL Normal 28.4-34.8 [facility] Comment on above: Performed By: #### E RTPF, CONNER, LIP, LIVP, TEGCR ####[address] [address] MCV Auto Entitic volume (RBC) 91.9 fL Normal 82.6-102.9 [facility] Comment on above: Performed By: #### E RTPF, CONNER, LIP, LIVP, TEGCR ####[address] [address] NRBC Automated 0.3 per 100 WBC High 0.0 [facility] Comment on above: Performed By: #### E RTPF, CONNER, LIP, LIVP, TEGCR ####[address] [place] [address] Platelet mean volume Auto Entitic volume (Bld) 11.8 fL Normal 8.1-13.5 [facility] Comment on above: Performed By: #### E RTPF, CONNER, LIP, LIVP, TEGCR ####[address] [address] Platelets Auto #/vol (Bld) 507 10*3/uL High 138-453 [facility] Comment on above: Performed By: #### E RTPF, CONNER, LIP, LIVP, TEGCR ####[address] [address] RBC Auto #/vol (Bld) 2.85 10*6/uL Low 4.21-5.77 [facility] Comment on above: Performed By: #### E RTPF, CONNER, LIP, LIVP, TEGCR ####[address] [address] WBC Auto #/vol (Bld) 25.9 10*3/uL High 3.5-11.3 [facility] Comment on above: Performed By: #### E RTPF, CONNER, LIP, LIVP, TEGCR ####[address] [address] Magnesiumon 02-12-2018 Magnesium mass conc 2.4 mg/dL Normal 1.6-2.6 [facility] Comment on above: Performed By: #### E RTPF, CONNER, LIP, LIVP, TEGCR ####[address] [place] [address] Phosphorus, Inorg.on 018 Phosphorus, Inorg. 5.1 mg/dL High 2.5-4.5 [facility] Comment on above: Performed By: #### E RTPF, CONNER, LIP, LIVP, TEGCR ####[facility] [address] [place] [address] XR CHEST PORTABLEon 02-13-20 18 [...] by:NADEGE Burksigned by:Fidel Marley MD02/12/18inal result Normal [facility] Basic Metabolic Profon 02-11 (cont.) Normal [facility] Comment on above: Result Comment: Aver age GFR for 50-59 years old: 93 mL/min/1.73sq mChronic Kidney Disease: <60 mL/min/1.73sq mKidney failure: <15 mL/min/1.73sq meGFR calculated using average adult body mass. Additional eGFR calculator available at:http://www.[employer].com/multiple_crcl_2012.htm Performed By: #### E RTPF, CONNER, LIP, LIVP, TEGCR ####[facility] [address] [place], [place] [address] Anion gap 3 molar conc 19 mmol/L High - [facility] Comment on above: Performed By: #### E RTPF, CONNER, LIP, LIVP, TEGCR ####[facility] [address] [place] [address] Calcium mass conc 8.8 mg/dL Normal 8.6-10.4 [facility] Comment on above: Performed By: #### E RTPF, CONNER, LIP, LIVP, TEGCR ####[address] [place] [address] Chloride molar conc 101 mmol/L Normal 98-107 [facility] Comment on above: Performed By: #### E RTPF, CONNER, LIP, LIVP, TEGCR ####[address] [place] [address] CO2 molar conc 17 mmol/L Low 20-31 [facility] Comment on above: Performed By: #### E RTPF, CONNER, LIP, LIVP, TEGCR ####[address] [address] Creatinine mass conc 2.91 mg/dL High 0.70-1.[address] [facility] Comment on above: Performed By: #### E RTPF, CONNER, LIP, LIVP, TEGCR ####[facility] [place] [address] GFR, Amer 27 mL/min Low >60 [facility] Comment on above: Performed By: #### E RTPF, CONNER, LIP, LIVP, TEGCR ####[facility] [address] [place] [address] GFR,non Amer 22 mL/min Low >[address] [facility] Comment on above: Performed By: #### E RTPF, CONNER, LIP, LIVP, TEGCR ####[facility] [place] [address] Glucose mass conc 140 mg/dL High 70-99 [facility] Comment on above: Performed By: #### E RTPF, CONNER, LIP, LIVP, TEGCR ####[facility] [place] [address] Potassium molar conc 3.4 mmol/L Low 3.7-5.[address] [facility] Comment on above: Performed By: #### E RTPF, CONNER, LIP, LIVP, TEGCR ####[address] [address] Sodium molar conc 137 mmol/L Normal 135-144 [facility] Comment on above: Performed By: #### E RTPF, CONNER, LIP, LIVP, TEGCR ####[address] [place] [address] Urea nitrogen mass conc 75 mg/dL High - [facility] Comment on above: Performed By: #### E RTPF, CONNER, LIP, LIVP, TEGCR ####[address] [place] [address] BUN/CRE Ratio NOT REPORTED Normal - [facility] Comment on above: Performed By: #### E RTPF, CONNER, LIP, LIVP, TEGCR ####[address] [place] [address] Staging: NOT REPORTED Normal [facility] Comment on above: Performed By: #### E RTPF, CONNER, LIP, LIVP, TEGCR ####[address] [place] [address] Brain Natri. Peptideon 02-11 Natriuretic peptide B mass conc (Bld) Normal [facility] Comment on above: Result Comment: Pro- BNP Reference Range:Rule Out: <300Grey Zone: Age <50 300-450 Age 50-75 300-900 Age >75 300-1800Usually represents mild to moderate HF but other cardiopulmonary causes cannot be ruled out.Rule In: Age <50 >450 Age 50-75 >900 Age >75 >1800 Performed By: #### E RTPF, CONNER, LIP, LIVP, TEGCR ####[address] [place] [address] Natriuretic peptide B mass conc (Bld) 1407 pg/mL High <300 [facility] Comment on above: Result Comment: Pro- BNP results cannot be compared to BNP results. Performed By: #### E RTPF, CONNER, LIP, LIVP, TEGCR ####[address] [address] CBCon 02-11-2018 Erythrocyte distribution width Auto Ratio (RBC) 16.7 % High 11.8-14.4 [facility] Comment on above: Performed By: #### E RTPF, CONNER, LIP, LIVP, TEGCR ####[address] [address] Hematocrit Auto Volume Fraction (Bld) 28.4 % Low 40.7-50.3 [facility] Comment on above: Performed By: #### E RTPF, CONNER, LIP, LIVP, TEGCR ####[address] [address] Hemoglobin mass conc (Bld) 9.1 g/dL Low 13.0-17.0 [facility] Comment on above: Performed By: #### E RTPF, CONNER, LIP, LIVP, TEGCR ####[address] [place] [address] MCH Auto Entitic mass (RBC) 29.3 pg Normal 25.2-33.5 [facility] Comment on above: Performed By: #### E RTPF, CONNER, LIP, LIVP, TEGCR ####[address] [place] [address] MCHC Auto mass conc (RBC) 32.0 g/dL Normal 28.4-34.8 [facility] Comment on above: Performed By: #### E RTPF, CONNER, LIP, LIVP, TEGCR ####[address] [address] MCV Auto Entitic volume (RBC) 91.3 fL Normal 82.6-102.9 [facility] Comment on above: Performed By: #### E RTPF, CONNER, LIP, LIVP, TEGCR ####[address] [address] NRBC Automated 0.3 per 100 WBC High 0.0 [facility] Comment on above: Performed By: #### E RTPF, CONNER, LIP, LIVP, TEGCR ####[address] [address] Platelet mean volume Auto Entitic volume (Bld) 11.7 fL Normal 8.1-13.5 [facility] Comment on above: Performed By: #### E RTPF, CONNER, LIP, LIVP, TEGCR ####[address] [address] Platelets Auto #/vol (Bld) 466 10*3/uL High 138-453 [facility] Comment on above: Performed By: #### E RTPF, CONNER, LIP, LIVP, TEGCR ####[address] [address] RBC Auto #/vol (Bld) 3.11 10*6/uL Low 4.21-5.77 [facility] Comment on above: Performed By: #### E RTPF, CONNER, LIP, LIVP, TEGCR ####[address] [address] WBC Auto #/vol (Bld) 24.8 10*3/uL High 3.5-11.3 [facility] Comment on above: Performed By: #### E RTPF, CONNER, LIP, LIVP, TEGCR ####[facility] [id number] [place] [address] Triglycerideson 02-11-2018 Triglyceride mass conc 202 mg/dL High <150 [facility] Comment on above: Result Comment: Trig lyceride Guidelines: <150 Desirable 150- 199 Borderline 200-499 High >499 Very high Based on AHA Guidelines for fasting triglyceride, February 2012. Performed By: #### E RTPF, CONNER, LIP, LIVP, TEGCR ####[address] [address] Basic Metabolic Profon 02-10 (cont.) Normal [facility] Comment on above: Result Comment: Aver age GFR for 50-59 years old: 93 mL/min/1.73sq mChronic Kidney Disease: <60 mL/min/1.73sq mKidney failure: <15 mL/min/1.73sq meGFR calculated using average adult body mass. Additional eGFR calculator available at:http://www.[employer]/multiple_crcl_2012.htm Performed By: #### E RTPF, CONNER, LIP, LIVP, TEGCR ####[address] [place] [address] Anion gap 3 molar conc 17 mmol/L Normal 9-17 [facility] Comment on above: Performed By: #### E RTPF, CONNER, LIP, LIVP, TEGCR ####[facility] [id number] [place] [address] Calcium mass conc 9.0 mg/dL Normal 8.6-10.4 [facility] Comment on above: Performed By: #### E RTPF, CONNER, LIP, LIVP, TEGCR ####[facility] [place] [address] Chloride molar conc 106 mmol/L Normal 98-107 [facility] Comment on above: Performed By: #### E RTPF, CONNER, LIP, LIVP, TEGCR ####[facility] [place] [address] CO2 molar conc 19 mmol/L Low 20-31 [facility] Comment on above: Performed By: #### E RTPF, CONNER, LIP, LIVP, TEGCR ####[address] [place] [address] Creatinine mass conc 3.02 mg/dL High 0.70-1.[address] [facility] Comment on above: Performed By: #### E RTPF, CONNER, LIP, LIVP, TEGCR ####[address] [address] GFR, Amer 26 mL/min Low >60 [facility] Comment on above: Performed By: #### E RTPF, CONNER, LIP, LIVP, TEGCR ####[address] [address] GFR,non Amer 22 mL/min Low >[address] [facility] Comment on above: Performed By: #### E RTPF, CONNER, LIP, LIVP, TEGCR ####[address] [place] [address] Glucose mass conc 147 mg/dL High 70-99 [facility] Comment on above: Performed By: #### E RTPF, CONNER, LIP, LIVP, TEGCR ####[facility] [place] [address] Potassium molar conc 3.5 mmol/L Low 3.7-5.[address] [facility] Comment on above: Performed By: #### E RTPF, CONNER, LIP, LIVP, TEGCR ####[facility] [place] [address] Sodium molar conc 142 mmol/L Normal 135-144 [facility] Comment on above: Performed By: #### E RTPF, CONNER, LIP, LIVP, TEGCR ####[address] [place] [address] Urea nitrogen mass conc 71 mg/dL High -20 [facility] Comment on above: Performed By: #### E RTPF, CONNER, LIP, LIVP, TEGCR ####[address] [address] BUN/CRE Ratio NOT REPORTED Normal - [facility] Comment on above: Performed By: #### E RTPF, CONNER, LIP, LIVP, TEGCR ####[address] [address] Staging: NOT REPORTED Normal [facility] Comment on above: Performed By: #### E RTPF, CONNER, LIP, LIVP, TEGCR ####[address] [address] Brain Natri. Peptideon 02-10 Natriuretic peptide B mass conc (Bld) Normal [facility] Comment on above: Result Comment: Pro- BNP Reference Range:Rule Out: <300Grey Zone: Age <50 300-450 Age 50-75 300-900 Age >75 300-1800Usually represents mild to moderate HF but other cardiopulmonary causes cannot be ruled out.Rule In: Age <50 >450 Age 50-75 >900 Age >75 >1800 Performed By: #### E RTPF, CONNER, LIP, LIVP, TEGCR ####[address] [address] Natriuretic peptide B mass conc (Bld) 1392 pg/mL High <300 [facility] Comment on above: Result Comment: Pro- BNP results cannot be compared to BNP results. Performed By: #### E RTPF, CONNER, LIP, LIVP, TEGCR ####[address] [place] [address] CBCon 02-10-2018 Erythrocyte distribution width Auto Ratio (RBC) 17.3 % High 11.8-14.4 [facility] Comment on above: Performed By: #### E RTPF, CONNER, LIP, LIVP, TEGCR ####[address] [address] Hematocrit Auto Volume Fraction (Bld) 30.3 % Low 40.7-50.3 [facility] Comment on above: Performed By: #### E RTPF, CONNER, LIP, LIVP, TEGCR ####[address] [address] Hemoglobin mass conc (Bld) 9.1 g/dL Low 13.0-17.0 [facility] Comment on above: Performed By: #### E RTPF, CONNER, LIP, LIVP, TEGCR ####[address] [address] MCH Auto Entitic mass (RBC) 29.4 pg Normal 25.2-33.5 [facility] Comment on above: Performed By: #### E RTPF, CONNER, LIP, LIVP, TEGCR ####[address] [address] MCHC Auto mass conc (RBC) 30.0 g/dL Normal 28.4-34.8 [facility] Comment on above: Performed By: #### E RTPF, CONNER, LIP, LIVP, TEGCR ####[address] [address] MCV Auto Entitic volume (RBC) 98.1 fL Normal 82.6-102.9 [facility] Comment on above: Performed By: #### E RTPF, CONNER, LIP, LIVP, TEGCR ####[address] [address] NRBC Automated 0.4 per 100 WBC High 0.0 [facility] Comment on above: Performed By: #### E RTPF, CONNER, LIP, LIVP, TEGCR ####[address] [address] Platelet mean volume Auto Entitic volume (Bld) 11.5 fL Normal 8.1-13.5 [facility] Comment on above: Performed By: #### E RTPF, CONNER, LIP, LIVP, TEGCR ####[address] [address] Platelets Auto #/vol (Bld) 526 10*3/uL High 138-453 [facility] Comment on above: Performed By: #### E RTPF, CONNER, LIP, LIVP, TEGCR ####[address] [address] RBC Auto #/vol (Bld) 3.09 10*6/uL Low 4.21-5.77 [facility] Comment on above: Performed By: #### E RTPF, CONNER, LIP, LIVP, TEGCR ####[address] [address] WBC Auto #/vol (Bld) 24.5 10*3/uL High 3.5-11.3 [facility] Comment on above: Performed By: #### E RTPF, CONNER, LIP, LIVP, TEGCR ####[address] [address] Specimen Rejectionon 018 Reason for rejection Unable to perform t esting: Specimen hemolyzed. Normal [facility] Comment on above: Performed By: #### E RTPF, CONNER, LIP, LIVP, TEGCR ####[address] [address] Source of sample .BLOOD Normal [facility] Comment on above: Performed By: #### E RTPF, CONNER, LIP, LIVP, TEGCR ####[facility] [address] [place], [place] [address] Test ordered BMP Normal [facility] Comment on above: Performed By: #### E RTPF, CONNER, LIP, LIVP, TEGCR ####[address] [place], [place] [id number] ----- NOT REPORTED Normal [facility] Comment on above: Performed By: #### E RTPF, CONNER, LIP, LIVP, TEGCR ####[address] [place], [place] [address] XR ABDOMEN (KUB) (SINGLE AP VIEW)on 02-10-2018 XR ABDOMEN (KUB) (SINGLE AP VIEW) EXAMINATION:SINGLE SUPINE XRAY VIEW(S) OF THE ALQAEAD9402/10/2018 2:04 pmCOMPARISON:None.HISTORY:ORD ERING SYSTEM PROVIDED HISTORY: s/p PEGTECHNOLOGIST PROVIDED HISTORY:With gastrografin to determine for leakPlease call [phone] for questions.Reason for exam:->s/p PEGFINDINGS:Diffuse bowel distention. A gastrostomy tube is present in the left upperquadrant. The balloon is inflated. Injected contrast opacifies the stomach.No extravasation of contrast.IMPRESSION: No extravasation of contrast.Interpreted by:NADEGE Lancasterigned by:Hebert Best MD02/10/18inal result Normal [facility] Basic Metabolic Profon 02-09 (cont.) Normal [facility] Comment on above: Result Comment: Aver age GFR for 50-59 years old: 93 mL/min/1.73sq mChronic Kidney Disease: <60 mL/min/1.73sq mKidney failure: <15 mL/min/1.73sq meGFR calculated using average adult body mass. Additional eGFR calculator available at:http://www.[employer]/multiple_crcl_2012.htm Performed By: #### E RTPF, CONNER, LIP, LIVP, TEGCR ####[facility] [place] [address] Anion gap 3 molar conc 16 mmol/L Normal 9-17 [facility] Comment on above: Performed By: #### E RTPF, CONNER, LIP, LIVP, TEGCR ####[address] [place] [address] Calcium mass conc 8.3 mg/dL Low 8.6-10.4 [facility] Comment on above: Performed By: #### E RTPF, CONNER, LIP, LIVP, TEGCR ####[address] [address] Chloride molar conc 109 mmol/L High 98-107 [facility] Comment on above: Performed By: #### E RTPF, CONNER, LIP, LIVP, TEGCR ####[address] [address] CO2 molar conc 18 mmol/L Low 20-31 [facility] Comment on above: Performed By: #### E RTPF, CONNER, LIP, LIVP, TEGCR ####[address] [place] [address] Creatinine mass conc 3.10 mg/dL High 0.70-1.[address] [facility] Comment on above: Performed By: #### E RTPF, CONNER, LIP, LIVP, TEGCR ####[facility] [place] [address] GFR, Amer 25 mL/min Low >60 [facility] Comment on above: Performed By: #### E RTPF, CONNER, LIP, LIVP, TEGCR ####[facility] [place] [address] GFR,non Amer 21 mL/min Low >[address] [facility] Comment on above: Performed By: #### E RTPF, CONNER, LIP, LIVP, TEGCR ####[address] [place] [address] Glucose mass conc 135 mg/dL High 70-99 [facility] Comment on above: Performed By: #### E RTPF, CONNER, LIP, LIVP, TEGCR ####[address] [address] Potassium molar conc 4.0 mmol/L Normal 3.7-5.[address] [facility] Comment on above: Performed By: #### E RTPF, CONNER, LIP, LIVP, TEGCR ####[address] [address] Sodium molar conc 143 mmol/L Normal 135-144 [facility] Comment on above: Performed By: #### E RTPF, CONNER, LIP, LIVP, TEGCR ####[address] [address] Urea nitrogen mass conc 67 mg/dL High 6-20 [facility] Comment on above: Performed By: #### E RTPF, CONNER, LIP, LIVP, TEGCR ####[facility] [place] [address] BUN/CRE Ratio NOT REPORTED Normal -20 [facility] Comment on above: Performed By: #### E RTPF, CONNER, LIP, LIVP, TEGCR ####[facility] [place] [address] Staging: NOT REPORTED Normal [facility] Comment on above: Performed By: #### E RTPF, CONNER, LIP, LIVP, TEGCR ####[address] [address] Brain Natri. Peptideon 02-09 Natriuretic peptide B mass conc (Bld) Normal [facility] Comment on above: Result Comment: Pro- BNP Reference Range:Rule Out: <300Grey Zone: Age <50 300-450 Age 50-75 300-900 Age >75 300-1800Usually represents mild to moderate HF but other cardiopulmonary causes cannot be ruled out.Rule In: Age <50 >450 Age 50-75 >900 Age >75 >1800 Performed By: #### E RTPF, CONNER, LIP, LIVP, TEGCR ####[address] [address] Natriuretic peptide B mass conc (Bld) 1435 pg/mL High <300 [facility] Comment on above: Result Comment: Pro- BNP results cannot be compared to BNP results. Performed By: #### E RTPF, CONNER, LIP, LIVP, TEGCR ####[address] [address] CBCon 02-09-2018 Erythrocyte distribution width Auto Ratio (RBC) 17.7 % High 11.8-14.4 [facility] Comment on above: Performed By: #### E RTPF, CONNER, LIP, LIVP, TEGCR ####[address] [address] Hematocrit Auto Volume Fraction (Bld) 29.4 % Low 40.7-50.3 [facility] Comment on above: Performed By: #### E RTPF, CONNER, LIP, LIVP, TEGCR ####[address] [place] [address] Hemoglobin mass conc (Bld) 8.8 g/dL Low 13.0-17.0 [facility] Comment on above: Performed By: #### E RTPF, CONNER, LIP, LIVP, TEGCR ####[address] [address] MCH Auto Entitic mass (RBC) 29.2 pg Normal 25.2-33.5 [facility] Comment on above: Performed By: #### E RTPF, CONNER, LIP, LIVP, TEGCR ####[address] [address] MCHC Auto mass conc (RBC) 29.9 g/dL Normal 28.4-34.8 [facility] Comment on above: Performed By: #### E RTPF, CONNER, LIP, LIVP, TEGCR ####[address] [address] MCV Auto Entitic volume (RBC) 97.7 fL Normal 82.6-102.9 [facility] Comment on above: Performed By: #### E RTPF, CONNER, LIP, LIVP, TEGCR ####[address] [address] NRBC Automated 0.9 per 100 WBC High 0.0 [facility] Comment on above: Performed By: #### E RTPF, CONNER, LIP, LIVP, TEGCR ####[address] [address] Platelet mean volume Auto Entitic volume (Bld) 11.5 fL Normal 8.1-13.5 [facility] Comment on above: Performed By: #### E RTPF, CONNER, LIP, LIVP, TEGCR ####[address] [address] Platelets Auto #/vol (Bld) 458 10*3/uL High 138-453 [facility] Comment on above: Performed By: #### E RTPF, CONNER, LIP, LIVP, TEGCR ####[address] [address] RBC Auto #/vol (Bld) 3.01 10*6/uL Low 4.21-5.77 [facility] Comment on above: Performed By: #### E RTPF, CONNER, LIP, LIVP, TEGCR ####[address] [address] WBC Auto #/vol (Bld) 19.8 10*3/uL High 3.5-11.3 [facility] Comment on above: Performed By: #### E RTPF, CONNER, LIP, LIVP, TEGCR ####[place] [address] Basic Metabolic Profon 02-08 (cont.) Normal [facility] Comment on above: Result Comment: Aver age GFR for 50-59 years old: 93 mL/min/1.73sq mChronic Kidney Disease: <60 mL/min/1.73sq mKidney failure: <15 mL/min/1.73sq meGFR calculated using average adult body mass. Additional eGFR calculator available at:http://www.[employer]/multiple_crcl_2012.htm Performed By: #### E RTPF, CONNER, LIP, LIVP, TEGCR ####[address] [address] Anion gap 3 molar conc 13 mmol/L Normal 9-17 [facility] Comment on above: Performed By: #### E RTPF, CONNER, LIP, LIVP, TEGCR ####[address] [address] Calcium mass conc 8.3 mg/dL Low 8.6-10.4 [facility] Comment on above: Performed By: #### E RTPF, CONNER, LIP, LIVP, TEGCR ####[address] [address] Chloride molar conc 110 mmol/L High 98-107 [facility] Comment on above: Performed By: #### E RTPF, CONNER, LIP, LIVP, TEGCR ####[address] [place] [address] CO2 molar conc 17 mmol/L Low 20-31 [facility] Comment on above: Performed By: #### E RTPF, CONNER, LIP, LIVP, TEGCR ####[facility] [place] [address] Creatinine mass conc 3.39 mg/dL High 0.70-1.[address] [facility] Comment on above: Performed By: #### E RTPF, CONNER, LIP, LIVP, TEGCR ####[address] [address] GFR, Amer 23 mL/min Low >60 [facility] Comment on above: Performed By: #### E RTPF, CONNER, LIP, LIVP, TEGCR ####[address] [address] GFR,non Amer 19 mL/min Low >[address] [facility] Comment on above: Performed By: #### E RTPF, CONNER, LIP, LIVP, TEGCR ####[address] [address] Glucose mass conc 136 mg/dL High 70-99 [facility] Comment on above: Performed By: #### E RTPF, CONNER, LIP, LIVP, TEGCR ####[address] [address] Potassium molar conc 4.3 mmol/L Normal 3.7-5.[address] [facility] Comment on above: Performed By: #### E RTPF, CONNER, LIP, LIVP, TEGCR ####[facility] [place] [address] Sodium molar conc 140 mmol/L Normal 135-144 [facility] Comment on above: Performed By: #### E RTPF, CONNER, LIP, LIVP, TEGCR ####[facility] [address] [place] [address] Urea nitrogen mass conc 68 mg/dL High - [facility] Comment on above: Performed By: #### E RTPF, CONNER, LIP, LIVP, TEGCR ####[address] [place] [address] BUN/CRE Ratio NOT REPORTED Normal - [facility] Comment on above: Performed By: #### E RTPF, CONNER, LIP, LIVP, TEGCR ####[address] [address] Staging: NOT REPORTED Normal [facility] Comment on above: Performed By: #### E RTPF, CONNER, LIP, LIVP, TEGCR ####[address] [address] Brain Natri. Peptideon 02-08 Natriuretic peptide B mass conc (Bld) Normal [facility] Comment on above: Result Comment: Pro- BNP Reference Range:Rule Out: <300Grey Zone: Age <50 300-450 Age 50-75 300-900 Age >75 300-1800Usually represents mild to moderate HF but other cardiopulmonary causes cannot be ruled out.Rule In: Age <50 >450 Age 50-75 >900 Age >75 >1800 Performed By: #### E RTPF, CONNER, LIP, LIVP, TEGCR ####[address] [address] Natriuretic peptide B mass conc (Bld) 1933 pg/mL High <300 [facility] Comment on above: Result Comment: Pro- BNP results cannot be compared to BNP results. Performed By: #### E RTPF, CONNER, LIP, LIVP, TEGCR ####[address] [place] [address] CBCon 02-08-2018 Erythrocyte distribution width Auto Ratio (RBC) 18.3 % High 11.8-14.4 [facility] Comment on above: Performed By: #### E RTPF, CONNER, LIP, LIVP, TEGCR ####[address] [address] Hematocrit Auto Volume Fraction (Bld) 26.2 % Low 40.7-50.3 [facility] Comment on above: Performed By: #### E RTPF, CONNER, LIP, LIVP, TEGCR ####[address] [address] Hemoglobin mass conc (Bld) 8.0 g/dL Low 13.0-17.0 [facility] Comment on above: Performed By: #### E RTPF, CONNER, LIP, LIVP, TEGCR ####[address] [address] MCH Auto Entitic mass (RBC) 29.6 pg Normal 25.2-33.5 [facility] Comment on above: Performed By: #### E RTPF, CONNER, LIP, LIVP, TEGCR ####[address] [address] MCHC Auto mass conc (RBC) 30.5 g/dL Normal 28.4-34.8 [facility] Comment on above: Performed By: #### E RTPF, CONNER, LIP, LIVP, TEGCR ####[address] [address] MCV Auto Entitic volume (RBC) 97.0 fL Normal 82.6-102.9 [facility] Comment on above: Performed By: #### E RTPF, CONNER, LIP, LIVP, TEGCR ####[address] [address] NRBC Automated 1.2 per 100 WBC High 0.0 [facility] Comment on above: Performed By: #### E RTPF, CONNER, LIP, LIVP, TEGCR ####[address] [place] [address] Platelet mean volume Auto Entitic volume (Bld) 12.1 fL Normal 8.1-13.5 [facility] Comment on above: Performed By: #### E RTPF, CONNER, LIP, LIVP, TEGCR ####[address] [address] Platelets Auto #/vol (Bld) 373 10*3/uL Normal 138-453 [facility] Comment on above: Performed By: #### E RTPF, CONNER, LIP, LIVP, TEGCR ####[address] [address] RBC Auto #/vol (Bld) 2.70 10*6/uL Low 4.21-5.77 [facility] Comment on above: Performed By: #### E RTPF, CONNER, LIP, LIVP, TEGCR ####[address] [address] WBC Auto #/vol (Bld) 23.8 10*3/uL High 3.5-11.3 [facility] Comment on above: Performed By: #### E RTPF, CONNER, LIP, LIVP, TEGCR ####[address] [address] Magnesiumon 02-08-2018 Magnesium mass conc 2.4 mg/dL Normal 1.6-2.6 [facility] Comment on above: Performed By: #### E RTPF, CONNER, LIP, LIVP, TEGCR ####[address] [place] [address] Phosphorus, Inorg.on 018 Phosphorus, Inorg. 5.7 mg/dL High 2.5-4.5 [facility] Comment on above: Performed By: #### E RTPF, CONNER, LIP, LIVP, TEGCR ####[facility] [id number] [place] [address] Basic Metabolic Profon 02-07 (cont.) Normal [facility] [facility] Comment on above: Result Comment: Aver age GFR for 50-59 years old: 93 mL/min/1.73sq mChronic Kidney Disease: <60 mL/min/1.73sq mKidney failure: <15 mL/min/1.73sq meGFR calculated using average adult body mass. Additional eGFR calculator available at:http://www.Yoke/multiple_crcl_2011.htm Performed By: #### E RTPF, CONNER, LIP, LIVP, TEGCR ####[address] [address] Anion gap 3 molar conc 11 mmol/L Normal 9-17 [facility] Comment on above: Performed By: #### E RTPF, CONNER, LIP, LIVP, TEGCR ####[facility] [address] [place] [address] Calcium mass conc 8.3 mg/dL Low 8.6-10.4 [facility] Comment on above: Performed By: #### E RTPF, CONNER, LIP, LIVP, TEGCR ####[facility] [address] [place] [address] Chloride molar conc 112 mmol/L High 98-107 [facility] Comment on above: Performed By: #### E RTPF, CONNER, LIP, LIVP, TEGCR ####[facility] [address] [place] [address] CO2 molar conc 16 mmol/L Low 20-31 [facility] Comment on above: Performed By: #### E RTPF, CONNER, LIP, LIVP, TEGCR ####[facility] [address] [place] [address] Creatinine mass conc 3.99 mg/dL High 0.70-1.[address] [facility] Comment on above: Performed By: #### E RTPF, CONNER, LIP, LIVP, TEGCR ####[address] [address] GFR, Amer 19 mL/min Low >60 [facility] Comment on above: Performed By: #### E RTPF, CONNER, LIP, LIVP, TEGCR ####[address] [address] GFR,non Amer 16 mL/min Low >[address] [facility] Comment on above: Performed By: #### E RTPF, CONNER, LIP, LIVP, TEGCR ####[address] [address] Glucose mass conc 127 mg/dL High 70-99 [facility] Comment on above: Performed By: #### E RTPF, CONNER, LIP, LIVP, TEGCR ####[address] [address] Potassium molar conc 4.6 mmol/L Normal 3.7-5.[address] [facility] Comment on above: Performed By: #### E RTPF, CONNER, LIP, LIVP, TEGCR ####[address] [address] Sodium molar conc 139 mmol/L Normal 135-144 [facility] Comment on above: Performed By: #### E RTPF, CONNER, LIP, LIVP, TEGCR ####[address] [address] Urea nitrogen mass conc 71 mg/dL High 6-20 [facility] Comment on above: Performed By: #### E RTPF, CONNER, LIP, LIVP, TEGCR ####[facility] [address] [place] [address] BUN/CRE Ratio NOT REPORTED Normal 9-20 [facility] Comment on above: Performed By: #### E RTPF, CONNER, LIP, LIVP, TEGCR ####[address] [place] [address] Staging: NOT REPORTED Normal [facility] Comment on above: Performed By: #### E RTPF, CONNER, LIP, LIVP, TEGCR ####[address] [address] Brain Natri. Peptideon 02-07 Natriuretic peptide B mass conc (Bld) 1696 pg/mL High <300 [facility] Comment on above: Result Comment: Pro- BNP results cannot be compared to BNP results. Performed By: #### E RTPF, CONNER, LIP, LIVP, TEGCR ####[address] [address] Natriuretic peptide B mass conc (Bld) Normal [facility] Comment on above: Result Comment: Pro- BNP Reference Range:Rule Out: <300Grey Zone: Age <50 300-450 Age 50-75 300-900 Age >75 300-1800Usually represents mild to moderate HF but other cardiopulmonary causes cannot be ruled out.Rule In: Age <50 >450 Age 50-75 >900 Age >75 >1800 Performed By: #### E RTPF, CONNER, LIP, LIVP, TEGCR ####[address] [address] CBCon 02-07-2018 Erythrocyte distribution width Auto Ratio (RBC) 18.5 % High 11.8-14.4 [facility] Comment on above: Performed By: #### E RTPF, CONNER, LIP, LIVP, TEGCR ####[address] [place] [address] Hematocrit Auto Volume Fraction (Bld) 23.5 % Low 40.7-50.3 [facility] Comment on above: Performed By: #### E RTPF, CONNER, LIP, LIVP, TEGCR ####[address] [address] Hemoglobin mass conc (Bld) 7.4 g/dL Low 13.0-17.0 [facility] Comment on above: Performed By: #### E RTPF, CONNER, LIP, LIVP, TEGCR ####[address] [address] MCH Auto Entitic mass (RBC) 30.1 pg Normal 25.2-33.5 [facility] Comment on above: Performed By: #### E RTPF, CONNER, LIP, LIVP, TEGCR ####[address] [address] MCHC Auto mass conc (RBC) 31.5 g/dL Normal 28.4-34.8 [facility] Comment on above: Performed By: #### E RTPF, CONNER, LIP, LIVP, TEGCR ####[address] [address] MCV Auto Entitic volume (RBC) 95.5 fL Normal 82.6-102.9 [facility] Comment on above: Performed By: #### E RTPF, CONNER, LIP, LIVP, TEGCR ####[address] [address] NRBC Automated 1.5 per 100 WBC High 0.0 [facility] Comment on above: Performed By: #### E RTPF, CONNER, LIP, LIVP, TEGCR ####[address] [address] Platelet mean volume Auto Entitic volume (Bld) 11.7 fL Normal 8.1-13.5 [facility] Comment on above: Performed By: #### E RTPF, CONNER, LIP, LIVP, TEGCR ####[address] [address] Platelets Auto #/vol (Bld) 406 10*3/uL Normal 138-453 [facility] Comment on above: Performed By: #### E RTPF, CONNER, LIP, LIVP, TEGCR ####[address] [address] RBC Auto #/vol (Bld) 2.46 10*6/uL Low 4.21-5.77 [facility] Comment on above: Performed By: #### E RTPF, CONNER, LIP, LIVP, TEGCR ####[address] [address] WBC Auto #/vol (Bld) 24.8 10*3/uL High 3.5-11.3 [facility] Comment on above: Performed By: #### E RTPF, CONNER, LIP, LIVP, TEGCR ####[address] [address] Hgb/Hcton 02-07-2018 Hematocrit Auto Volume Fraction (Bld) 23.9 % Low 40.7-50.3 [facility] Comment on above: Performed By: #### E RTPF, CONNER, LIP, LIVP, TEGCR ####[address] [address] Hemoglobin mass conc (Bld) 7.5 g/dL Low 13.0-17.0 [facility] Comment on above: Performed By: #### E RTPF, CONNER, LIP, LIVP, TEGCR ####[address] [address] XR CHEST (SINGLE VIEW FRONTA L)on 02-07-2018 [...] by:NADEGE Lancasterigned by:Hebert Best MD02/07/18inal result Normal [facility] Amylaseon 02-06-2018 Amylase enzyme act/vol 167 U/L High 28-100 [facility] Comment on above: Performed By: #### E RTPF, CONNER, LIP, LIVP, TEGCR ####[place] [address] Basic Metabolic Profon 02-06 Anion gap 3 molar conc 15 mmol/L Normal 9-17 [facility] Comment on above: Performed By: #### E RTPF, CONNER, LIP, LIVP, TEGCR ####[address] [address] Chloride molar conc 112 mmol/L High 98-107 [facility] Comment on above: Performed By: #### E RTPF, CONNER, LIP, LIVP, TEGCR ####[facility] [address] [place] [address] Potassium molar conc 4.5 mmol/L Normal 3.7-5.[address] [facility] Comment on above: Performed By: #### E RTPF, CONNER, LIP, LIVP, TEGCR ####[facility] [address] [place] [address] Sodium molar conc 143 mmol/L Normal 135-144 [facility] Comment on above: Performed By: #### E RTPF, CONNER, LIP, LIVP, TEGCR ####[address] [place] [address] (cont.) Normal [facility] Comment on above: Result Comment: Aver age GFR for 50-59 years old: 93 mL/min/1.73sq mChronic Kidney Disease: <60 mL/min/1.73sq mKidney failure: <15 mL/min/1.73sq meGFR calculated using average adult body mass. Additional eGFR calculator available at:http://www.Yoke/multiple_crcl_2012.htm Performed By: #### E RTPF, CONNER, LIP, LIVP, TEGCR ####[address] [address] Calcium mass conc 8.0 mg/dL Low 8.6-10.4 [facility] Comment on above: Performed By: #### E RTPF, CONNER, LIP, LIVP, TEGCR ####[address] [address] CO2 molar conc 16 mmol/L Low 20-31 [facility] Comment on above: Performed By: #### E RTPF, CONNER, LIP, LIVP, TEGCR ####[address] [address] Creatinine mass conc 4.02 mg/dL High 0.70-1.[address] [facility] Comment on above: Performed By: #### E RTPF, CONNER, LIP, LIVP, TEGCR ####[address] [place] [address] GFR, Amer 19 mL/min Low >60 [facility] Comment on above: Performed By: #### E RTPF, CONNER, LIP, LIVP, TEGCR ####[address] [place] [address] GFR,non Amer 15 mL/min Low >[address] [facility] Comment on above: Performed By: #### E RTPF, CONNER, LIP, LIVP, TEGCR ####[address] [place] [address] Glucose mass conc 131 mg/dL High 70-99 [facility] Comment on above: Performed By: #### E RTPF, CONNER, LIP, LIVP, TEGCR ####[address] [address] Urea nitrogen mass conc 72 mg/dL High 6-20 [facility] Comment on above: Performed By: #### E RTPF, CONNER, LIP, LIVP, TEGCR ####[address] [place] [address] BUN/CRE Ratio NOT REPORTED Normal -20 [facility] Comment on above: Performed By: #### E RTPF, CONNER, LIP, LIVP, TEGCR ####[address] [address] Staging: NOT REPORTED Normal [facility] Comment on above: Performed By: #### E RTPF, CONNER, LIP, LIVP, TEGCR ####[address] [address] Brain Natri. Peptideon 02-06 Natriuretic peptide B mass conc (Bld) Normal [facility] Comment on above: Result Comment: Pro- BNP Reference Range:Rule Out: <300Grey Zone: Age <50 300-450 Age 50-75 300-900 Age >75 300-1800Usually represents mild to moderate HF but other cardiopulmonary causes cannot be ruled out.Rule In: Age <50 >450 Age 50-75 >900 Age >75 >1800 Performed By: #### E RTPF, CONNER, LIP, LIVP, TEGCR ####[address] [address] Natriuretic peptide B mass conc (Bld) 2505 pg/mL High <300 [facility] Comment on above: Result Comment: Pro- BNP results cannot be compared to BNP results. Performed By: #### E RTPF, CONNER, LIP, LIVP, TEGCR ####[address] [address] CBCon 02-06-2018 Erythrocyte distribution width Auto Ratio (RBC) 20.3 % High 11.8-14.4 [facility] Comment on above: Performed By: #### E RTPF, CONNER, LIP, LIVP, TEGCR ####[address] [address] Hematocrit Auto Volume Fraction (Bld) 22.9 % Low 40.7-50.3 [facility] Comment on above: Performed By: #### E RTPF, CONNER, LIP, LIVP, TEGCR ####[address] [address] Hemoglobin mass conc (Bld) 6.9 g/dL Critically low 13.0-17.0 [facility] Comment on above: Performed By: #### E RTPF, CONNER, LIP, LIVP, TEGCR ####[address] [address] MCH Auto Entitic mass (RBC) 29.2 pg Normal 25.2-33.5 [facility] Comment on above: Performed By: #### E RTPF, CONNER, LIP, LIVP, TEGCR ####[address] [address] MCHC Auto mass conc (RBC) 30.1 g/dL Normal 28.4-34.8 [facility] Comment on above: Performed By: #### E RTPF, CONNER, LIP, LIVP, TEGCR ####[address] [address] MCV Auto Entitic volume (RBC) 97.0 fL Normal 82.6-102.9 [facility] Comment on above: Performed By: #### E RTPF, CONNER, LIP, LIVP, TEGCR ####[address] [address] NRBC Automated 1.8 per 100 WBC High 0.0 [facility] Comment on above: Performed By: #### E RTPF, CONNER, LIP, LIVP, TEGCR ####[address] [address] Platelet mean volume Auto Entitic volume (Bld) 11.9 fL Normal 8.1-13.5 [facility] Comment on above: Performed By: #### E RTPF, CONNER, LIP, LIVP, TEGCR ####[address] [address] Platelets Auto #/vol (Bld) 399 10*3/uL Normal 138-453 [facility] Comment on above: Performed By: #### E RTPF, CONNER, LIP, LIVP, TEGCR ####[address] [address] RBC Auto #/vol (Bld) 2.36 10*6/uL Low 4.21-5.77 [facility] Comment on above: Performed By: #### E RTPF, CONNER, LIP, LIVP, TEGCR ####[address] [address] WBC Auto #/vol (Bld) 25.6 10*3/uL High 3.5-11.3 [facility] Comment on above: Performed By: #### E RTPF, CONNER, LIP, LIVP, TEGCR ####[address] [address] Creatine Kinaseon 02-06-2018 CK enzyme act/vol 456 U/L High 39-308 [facility] Comment on above: Performed By: #### E RTPF, CONNER, LIP, LIVP, TEGCR ####[address] [place] [address] Lactic Acid,Whole Blon 02-06 Lactic Acid,Whole Bl 0.7 mmol/L Normal 0.7-2.[address] [facility] Comment on above: Performed By: #### E RTPF, CONNER, LIP, LIVP, TEGCR ####[facility] [address] [place] [address] Lactic Acid,Whole Bl 0.8 mmol/L Normal 0.7-2.[address] [facility] Comment on above: Performed By: #### E RTPF, CONNER, LIP, LIVP, TEGCR ####[address] [place] [address] Lipaseon 02-06-2018 Lipase enzyme act/vol 51 U/L Normal 13-60 [facility] Comment on above: Performed By: #### E RTPF, CONNER, LIP, LIVP, TEGCR ####[address] [place] [address] Myoglobinon 02-06-2018 Myoglobin mass conc 471 ng/mL High 28-72 [facility] Comment on above: Performed By: #### E RTPF, CONNER, LIP, LIVP, TEGCR ####[address] [place] [address] Basic Metabolic Profon 02-05 (cont.) Normal [facility] Comment on above: Result Comment: Aver age GFR for 50-59 years old: 93 mL/min/1.73sq mChronic Kidney Disease: <60 mL/min/1.73sq mKidney failure: <15 mL/min/1.73sq meGFR calculated using average adult body mass. Additional eGFR calculator available at:http://www.[employer]/multiple_crcl_2011.htm Performed By: #### E RTPF, CONNER, LIP, LIVP, TEGCR ####[address] [place] [address] Anion gap 3 molar conc 12 mmol/L Normal 9-17 [facility] Comment on above: Performed By: #### E RTPF, CONNER, LIP, LIVP, TEGCR ####[address] [address] Calcium mass conc 7.6 mg/dL Low 8.6-10.4 [facility] Comment on above: Performed By: #### E RTPF, CONNER, LIP, LIVP, TEGCR ####[address] [address] Chloride molar conc 110 mmol/L High 98-107 [facility] Comment on above: Performed By: #### E RTPF, CONNER, LIP, LIVP, TEGCR ####[address] [address] CO2 molar conc 16 mmol/L Low 20-31 [facility] Comment on above: Performed By: #### E RTPF, CONNER, LIP, LIVP, TEGCR ####[address] [address] Creatinine mass conc 3.63 mg/dL High 0.70-1.[address] [facility] Comment on above: Performed By: #### E RTPF, CONNER, LIP, LIVP, TEGCR ####[facility] [place] [address] GFR, Amer 21 mL/min Low >60 [facility] Comment on above: Performed By: #### E RTPF, CONNER, LIP, LIVP, TEGCR ####[address] [address] GFR,non Amer 17 mL/min Low >[address] [facility] Comment on above: Performed By: #### E RTPF, CONNER, LIP, LIVP, TEGCR ####[address] [place] [address] Glucose mass conc 132 mg/dL High 70-99 [facility] Comment on above: Performed By: #### E RTPF, CONNER, LIP, LIVP, TEGCR ####[facility] [address] [place] [address] Potassium molar conc 4.1 mmol/L Normal 3.7-5.[address] [facility] Comment on above: Performed By: #### E RTPF, CONNER, LIP, LIVP, TEGCR ####[address] [address] Sodium molar conc 138 mmol/L Normal 135-144 [facility] Comment on above: Performed By: #### E RTPF, CONNER, LIP, LIVP, TEGCR ####[facility] [place] [address] Urea nitrogen mass conc 69 mg/dL High 6-20 [facility] Comment on above: Performed By: #### E RTPF, CONNER, LIP, LIVP, TEGCR ####[facility] [place] [address] BUN/CRE Ratio NOT REPORTED Normal -20 [facility] Comment on above: Performed By: #### E RTPF, CONNER, LIP, LIVP, TEGCR ####[address] [place] [address] Staging: NOT REPORTED Normal [facility] Comment on above: Performed By: #### E RTPF, CONNER, LIP, LIVP, TEGCR ####[facility] [place] [address] Calcium mass conc 7.6 mg/dL Low 8.6-10.4 [facility] Comment on above: Performed By: #### E RTPF, CONNER, LIP, LIVP, TEGCR ####[address] [place] [address] Urea nitrogen mass conc 72 mg/dL High 6-20 [facility] Comment on above: Performed By: #### E RTPF, CONNER, LIP, LIVP, TEGCR ####[facility] [address] [place] [address] Creatinine mass conc 3.70 mg/dL High 0.70-1.[address] [facility] Comment on above: Performed By: #### E RTPF, CONNER, LIP, LIVP, TEGCR ####[address] [place] [address] GFR, Amer 21 mL/min Low >60 [facility] Comment on above: Performed By: #### E RTPF, CONNER, LIP, LIVP, TEGCR ####[facility] [place] [address] GFR,non Amer 17 mL/min Low >[address] [facility] Comment on above: Performed By: #### E RTPF, CONNER, LIP, LIVP, TEGCR ####[address] [address] (cont.) Normal [facility] Comment on above: Result Comment: Aver age GFR for 50-59 years old: 93 mL/min/1.73sq mChronic Kidney Disease: <60 mL/min/1.73sq mKidney failure: <15 mL/min/1.73sq meGFR calculated using average adult body mass. Additional eGFR calculator available at:http://www.[employer]/multiple_crcl_2012.htm Performed By: #### E RTPF, CONNER, LIP, LIVP, TEGCR ####[facility] [place] [address] Anion gap 3 molar conc 11 mmol/L Normal 9-17 [facility] Comment on above: Performed By: #### E RTPF, CONNER, LIP, LIVP, TEGCR ####[facility] [place] [address] Chloride molar conc 110 mmol/L High 98-107 [facility] Comment on above: Performed By: #### E RTPF, CONNER, LIP, LIVP, TEGCR ####[facility] [place] [address] CO2 molar conc 17 mmol/L Low 20-31 [facility] Comment on above: Performed By: #### E RTPF, CONNER, LIP, LIVP, TEGCR ####[address] [address] Glucose mass conc 159 mg/dL High 70-99 [facility] Comment on above: Performed By: #### E RTPF, CONNER, LIP, LIVP, TEGCR ####[facility] [place] [address] Potassium molar conc 4.3 mmol/L Normal 3.7-5.[address] [facility] Comment on above: Performed By: #### E RTPF, CONNER, LIP, LIVP, TEGCR ####[facility] [address] [place] [address] Sodium molar conc 138 mmol/L Normal 135-144 [facility] Comment on above: Performed By: #### E RTPF, CONNER, LIP, LIVP, TEGCR ####[address] [place] [address] BUN/CRE Ratio NOT REPORTED Normal 9-20 [facility] Comment on above: Performed By: #### E RTPF, CONNER, LIP, LIVP, TEGCR ####[address] [place] [address] Staging: NOT REPORTED Normal [facility] Comment on above: Performed By: #### E RTPF, CONNER, LIP, LIVP, TEGCR ####[address] [place] [address] (cont.) Normal [facility] Comment on above: Result Comment: Aver age GFR for 50-59 years old: 93 mL/min/1.73sq mChronic Kidney Disease: <60 mL/min/1.73sq mKidney failure: <15 mL/min/1.73sq meGFR calculated using average adult body mass. Additional eGFR calculator available at:http://www.[employer]oke/multiple_crcl_2012.htm Performed By: #### E RTPF, CONNER, LIP, LIVP, TEGCR ####[address] [address] Anion gap 3 molar conc 14 mmol/L Normal 9-17 [facility] Comment on above: Performed By: #### E RTPF, CONNER, LIP, LIVP, TEGCR ####[address] [address] Calcium mass conc 7.6 mg/dL Low 8.6-10.4 [facility] Comment on above: Performed By: #### E RTPF, CONNER, LIP, LIVP, TEGCR ####[address] [place] [address] Chloride molar conc 113 mmol/L High 98-107 [facility] Comment on above: Performed By: #### E RTPF, CONNER, LIP, LIVP, TEGCR ####[address] [place] [address] CO2 molar conc 18 mmol/L Low 20-31 [facility] Comment on above: Performed By: #### E RTPF, CONNER, LIP, LIVP, TEGCR ####[facility] [address] [place] [address] Creatinine mass conc 3.53 mg/dL High 0.70-1.[address] [facility] Comment on above: Performed By: #### E RTPF, CONNER, LIP, LIVP, TEGCR ####[facility] [address] [place] [address] GFR, Amer 22 mL/min Low >60 [facility] Comment on above: Performed By: #### E RTPF, CONNER, LIP, LIVP, TEGCR ####[facility] [address] [place] [address] GFR,non Amer 18 mL/min Low >[address] [facility] Comment on above: Performed By: #### E RTPF, CONNER, LIP, LIVP, TEGCR ####[facility] [address] [place] [address] Glucose mass conc 133 mg/dL High 70-99 [facility] Comment on above: Performed By: #### E RTPF, CONNER, LIP, LIVP, TEGCR ####[facility] [address] [place] [address] Potassium molar conc 4.3 mmol/L Normal 3.7-5.[address] [facility] Comment on above: Performed By: #### E RTPF, CONNER, LIP, LIVP, TEGCR ####[facility] [address] [place] [address] Sodium molar conc 145 mmol/L High 135-144 [facility] Comment on above: Performed By: #### E RTPF, CONNER, LIP, LIVP, TEGCR ####[facility] [address] [place] [address] Urea nitrogen mass conc 66 mg/dL High 6-20 [facility] Comment on above: Performed By: #### E RTPF, CONNER, LIP, LIVP, TEGCR ####[address] [address] Blood Bank Specimenon 2017 Blood Bank Specimen NOT REPORTED Normal [facility] CBCon 02-05-2018 Erythrocyte distribution width Auto Ratio (RBC) 18.7 % High 11.8-14.4 [facility] Comment on above: Performed By: #### E RTPF, CONNER, LIP, LIVP, TEGCR ####[address] [address] Hematocrit Auto Volume Fraction (Bld) 18.8 % Low 40.7-50.3 [facility] Comment on above: Performed By: #### E RTPF, CONNER, LIP, LIVP, TEGCR ####[address] [address] Hemoglobin mass conc (Bld) 5.5 g/dL Critically low 13.0-17.0 [facility] Comment on above: Performed By: #### E RTPF, CONNER, LIP, LIVP, TEGCR ####[address] [address] MCH Auto Entitic mass (RBC) 30.6 pg Normal 25.2-33.5 [facility] Comment on above: Performed By: #### E RTPF, CONNER, LIP, LIVP, TEGCR ####[address] [address] MCHC Auto mass conc (RBC) 29.3 g/dL Normal 28.4-34.8 [facility] Comment on above: Performed By: #### E RTPF, CONNER, LIP, LIVP, TEGCR ####[address] [address] MCV Auto Entitic volume (RBC) 104.4 fL High 82.6-102.9 [facility] Comment on above: Performed By: #### E RTPF, CONNER, LIP, LIVP, TEGCR ####[address] [address] NRBC Automated 1.3 per 100 WBC High 0.0 [facility] Comment on above: Performed By: #### E RTPF, CONNER, LIP, LIVP, TEGCR ####[address] [address] Platelet mean volume Auto Entitic volume (Bld) 12.0 fL Normal 8.1-13.5 [facility] Comment on above: Performed By: #### E RTPF, CONNER, LIP, LIVP, TEGCR ####[address] [address] Platelets Auto #/vol (Bld) 421 10*3/uL Normal 138-453 [facility] Comment on above: Performed By: #### E RTPF, CONNER, LIP, LIVP, TEGCR ####[address] [address] RBC Auto #/vol (Bld) 1.80 10*6/uL Low 4.21-5.77 [facility] Comment on above: Performed By: #### E RTPF, CONNER, LIP, LIVP, TEGCR ####[address] [address] WBC Auto #/vol (Bld) 28.9 10*3/uL High 3.5-11.3 [facility] Comment on above: Performed By: #### E RTPF, CONNER, LIP, LIVP, TEGCR ####[address] [address] Cult,Bloodon 02-05-2018 Cult,Blood Specimen Description .BLOOD Special Requests RT ARM 2ML Culture NO GROWTH 6 DAYS Report Status FINAL 02/05/2018 Normal [facility] Comment on above: Performed By: #### E RTPF, CONNER, LIP, LIVP, TEGCR ####[address] [address] Cult,Blood Specimen Description .BLOOD Special Requests RT ARM 5ML Culture NO GROWTH 6 DAYS Report Status FINAL 02/05/2018 Normal [facility] Comment on above: Performed By: #### E RTPF, CONNER, LIP, LIVP, TEGCR ####[address] [address] Hgb/Hcton 02-05-2018 Hematocrit Auto Volume Fraction (Bld) 22.9 % Low 40.7-50.3 [facility] Comment on above: Performed By: #### E RTPF, CONNER, LIP, LIVP, TEGCR ####[address] [address] Hemoglobin mass conc (Bld) 6.9 g/dL Critically low 13.0-17.0 [facility] Comment on above: Performed By: #### E RTPF, CONNER, LIP, LIVP, TEGCR ####[address] [address] TEG, Rapid Citratedon 2017 ACT TEG 89.0 sec Normal 86-118 [facility] Comment on above: Performed By: #### E RTPF, CONNER, LIP, LIVP, TEGCR ####[address] [address] Angle, Rapid TEG 81.8 deg High 64-80 [facility] Comment on above: Performed By: #### E RTPF, CONNER, LIP, LIVP, TEGCR ####[address] [address] EPL TEG 2.0 % Normal 0.0-15.0 [facility] Comment on above: Performed By: #### E RTPF, CONNER, LIP, LIVP, TEGCR ####[address] [address] Heparin Therapy: None Normal [facility] Comment on above: Performed By: #### E RTPF, CONNER, LIP, LIVP, TEGCR ####[address] [address] K (Kinetics) rTEG 0.8 min Low 1.0-2.0 [facility] Comment on above: Performed By: #### E RTPF, CONNER, LIP, LIVP, TEGCR ####[place] [address] LY30 (Lysis) TEG 2.0 % Normal 0-8 [facility] Comment on above: Performed By: #### E RTPF, CONNER, LIP, LIVP, TEGCR ####[place] [address] [place] Rapid TEG 81.9 mm High 52-71 [facility] Comment on above: Performed By: #### E RTPF, CONNER, LIP, LIVP, TEGCR ####[address] [address] R(Reaction Time)rTEG 0.4 min Normal 0.0-1.[address] [facility] Comment on above: Performed By: #### E RTPF, CONNER, LIP, LIVP, TEGCR ####[place] [address] TEG Comment ACT is the only FDA approved component of the Rapid TEG. Normal [facility] Comment on above: Performed By: #### E RTPF, CONNER, LIP, LIVP, TEGCR ####[address] [address] Type + Screenon 02-05-2018 Type + Screen Sample Expiration Arm Band Number [id number] ABO/Rh(D) A POSITIVE Antibody Screen NEGATIVE Unit Number [id number] Blood Component Type Leukocyte Reduced Red Cell Unit Division 00 Status of Unit TRANSFUSED Transfusion Status OK TO TRANSFUSE Crossmatch Result COMPATIBLE Unit Number [id number] Blood Component Type Leukocyte Reduced Red Cell Unit Division 00 Status of Unit TRANSFUSED Transfusion Status OK TO TRANSFUSE Crossmatch Result COMPATIBLE Normal [facility] Comment on above: Performed By: #### E RTPF, CONNER, LIP, LIVP, TEGCR ####[facility] [address] [place] [address] XR CHEST PORTABLEon 02-06-20 18 XR CHEST [...] by:NADEGE Mcarthurigned by:Jack Jones MD02/05/18inal result Normal [facility] Ammoniaon 02-04-2018 Ammonia mass conc (P) 40 umol/L Normal 16-60 [facility] Comment on above: Performed By: #### E RTPF, CONNER, LIP, LIVP, TEGCR ####[facility] [address] [place] [address] Basic Metabolic Profon 02-04 BUN/CRE Ratio NOT REPORTED Normal - [facility] Comment on above: Performed By: #### E RTPF, CONNER, LIP, LIVP, TEGCR ####[address] [place] [address] Staging: NOT REPORTED Normal [facility] Comment on above: Performed By: #### E RTPF, CONNER, LIP, LIVP, TEGCR ####[address] [place] [address] (cont.) Normal [facility] Comment on above: Result Comment: Aver age GFR for 50-59 years old: 93 mL/min/1.73sq mChronic Kidney Disease: <60 mL/min/1.73sq mKidney failure: <15 mL/min/1.73sq meGFR calculated using average adult body mass. Additional eGFR calculator available at:http://www.[employer]oke/multiple_crcl_2012.htm Performed By: #### E RTPF, CONNER, LIP, LIVP, TEGCR ####[address] [address] Anion gap 3 molar conc 12 mmol/L Normal 9-17 [facility] Comment on above: Performed By: #### E RTPF, CONNER, LIP, LIVP, TEGCR ####[address] [place] [address] Calcium mass conc 7.8 mg/dL Low 8.6-10.4 [facility] Comment on above: Performed By: #### E RTPF, CONNER, LIP, LIVP, TEGCR ####[address] [place] [address] Chloride molar conc 117 mmol/L High 98-107 [facility] Comment on above: Performed By: #### E RTPF, CONNER, LIP, LIVP, TEGCR ####[address] [place] [address] CO2 molar conc 18 mmol/L Low 20-31 [facility] Comment on above: Performed By: #### E RTPF, CONNER, LIP, LIVP, TEGCR ####[address] [address] Creatinine mass conc 3.52 mg/dL High 0.70-1.[address] [facility] Comment on above: Performed By: #### E RTPF, CONNER, LIP, LIVP, TEGCR ####[facility] [address] [place] [address] GFR, Amer 22 mL/min Low >60 [facility] Comment on above: Performed By: #### E RTPF, CONNER, LIP, LIVP, TEGCR ####[address] [address] GFR,non Amer 18 mL/min Low >[address] [facility] Comment on above: Performed By: #### E RTPF, CONNER, LIP, LIVP, TEGCR ####[address] [address] Glucose mass conc 149 mg/dL High 70-99 [facility] Comment on above: Performed By: #### E RTPF, CONNER, LIP, LIVP, TEGCR ####[facility] [place] [address] Potassium molar conc 4.4 mmol/L Normal 3.7-5.[address] [facility] Comment on above: Performed By: #### E RTPF, CONNER, LIP, LIVP, TEGCR ####[address] [address] Sodium molar conc 147 mmol/L High 135-144 [facility] Comment on above: Performed By: #### E RTPF, CONNER, LIP, LIVP, TEGCR ####[address] [address] Urea nitrogen mass conc 64 mg/dL High 6-20 [facility] Comment on above: Performed By: #### E RTPF, CONNER, LIP, LIVP, TEGCR ####[facility] [address] [place] [address] BUN/CRE Ratio NOT REPORTED Normal - [facility] Comment on above: Performed By: #### E RTPF, CONNER, LIP, LIVP, TEGCR ####[facility] [address] [place] [address] Staging: NOT REPORTED Normal [facility] Comment on above: Performed By: #### E RTPF, CONNER, LIP, LIVP, TEGCR ####[address] [place] [address] (cont.) Normal [facility] Comment on above: Result Comment: Aver age GFR for 50-59 years old: 93 mL/min/1.73sq mChronic Kidney Disease: <60 mL/min/1.73sq mKidney failure: <15 mL/min/1.73sq meGFR calculated using average adult body mass. Additional eGFR calculator available at:http://www.Yoke/multiple_crcl_2012.htm Performed By: #### E RTPF, CONNER, LIP, LIVP, TEGCR ####[facility] [address] [place] [address] Anion gap 3 molar conc 13 mmol/L Normal -17 [facility] Comment on above: Performed By: #### E RTPF, CONNER, LIP, LIVP, TEGCR ####[facility] [address] [place] [address] Calcium mass conc 7.5 mg/dL Low 8.6-10.4 [facility] Comment on above: Performed By: #### E RTPF, CONNER, LIP, LIVP, TEGCR ####[address] [place] [address] Chloride molar conc 117 mmol/L High 98-107 [facility] Comment on above: Performed By: #### E RTPF, CONNER, LIP, LIVP, TEGCR ####[address] [address] CO2 molar conc 19 mmol/L Low 20-31 [facility] Comment on above: Performed By: #### E RTPF, CONNER, LIP, LIVP, TEGCR ####[address] [address] Creatinine mass conc 3.36 mg/dL High 0.70-1.[address] [facility] Comment on above: Performed By: #### E RTPF, CONNER, LIP, LIVP, TEGCR ####[address] [address] GFR, Amer 23 mL/min Low >60 [facility] Comment on above: Performed By: #### E RTPF, CONNER, LIP, LIVP, TEGCR ####[address] [address] GFR,non Amer 19 mL/min Low >[address] [facility] Comment on above: Performed By: #### E RTPF, CONNER, LIP, LIVP, TEGCR ####[address] [address] Glucose mass conc 140 mg/dL High 70-99 [facility] Comment on above: Performed By: #### E RTPF, CONNER, LIP, LIVP, TEGCR ####[address] [address] Potassium molar conc 4.4 mmol/L Normal 3.7-5.[address] [facility] Comment on above: Performed By: #### E RTPF, CONNER, LIP, LIVP, TEGCR ####[facility] [address] [place] [address] Sodium molar conc 149 mmol/L High 135-144 [facility] Comment on above: Performed By: #### E RTPF, CONNER, LIP, LIVP, TEGCR ####[facility] [place] [address] Urea nitrogen mass conc 61 mg/dL High 6-20 [facility] Comment on above: Performed By: #### E RTPF, CONNER, LIP, LIVP, TEGCR ####[address] [place] [address] BUN/CRE Ratio NOT REPORTED Normal -20 [facility] Comment on above: Performed By: #### E RTPF, CONNER, LIP, LIVP, TEGCR ####[address] [address] Staging: NOT REPORTED Normal [facility] Comment on above: Performed By: #### E RTPF, CONNER, LIP, LIVP, TEGCR ####[address] [address] (cont.) Normal [facility] Comment on above: Result Comment: Aver age GFR for 50-59 years old: 93 mL/min/1.73sq mChronic Kidney Disease: <60 mL/min/1.73sq mKidney failure: <15 mL/min/1.73sq meGFR calculated using average adult body mass. Additional eGFR calculator available at:http://www.[employer].com/multiple_crcl_2012.htm Performed By: #### E RTPF, CONNER, LIP, LIVP, TEGCR ####[facility] [place] [address] Anion gap 3 molar conc 15 mmol/L Normal 9-17 [facility] Comment on above: Performed By: #### E RTPF, CONNER, LIP, LIVP, TEGCR ####[facility] [address] [place] [address] Calcium mass conc 7.5 mg/dL Low 8.6-10.4 [facility] Comment on above: Performed By: #### E RTPF, CONNER, LIP, LIVP, TEGCR ####[facility] [place] [address] Chloride molar conc 114 mmol/L High 98-107 [facility] Comment on above: Performed By: #### E RTPF, CONNER, LIP, LIVP, TEGCR ####[address] [place] [address] CO2 molar conc 17 mmol/L Low 20-31 [facility] Comment on above: Performed By: #### E RTPF, CONNER, LIP, LIVP, TEGCR ####[address] [address] Creatinine mass conc 3.20 mg/dL High 0.70-1.[address] [facility] Comment on above: Performed By: #### E RTPF, CONNER, LIP, LIVP, TEGCR ####[facility] [place] [address] GFR, Amer 24 mL/min Low >60 [facility] Comment on above: Performed By: #### E RTPF, CONNER, LIP, LIVP, TEGCR ####[facility] [address] [place] [address] GFR,non Amer 20 mL/min Low >[address] [facility] Comment on above: Performed By: #### E RTPF, CONNER, LIP, LIVP, TEGCR ####[facility] [place] [address] Glucose mass conc 152 mg/dL High 70-99 [facility] Comment on above: Performed By: #### E RTPF, CONNER, LIP, LIVP, TEGCR ####[address] [place] [address] Potassium molar conc 4.4 mmol/L Normal 3.7-5.[address] [facility] Comment on above: Performed By: #### E RTPF, CONNER, LIP, LIVP, TEGCR ####[address] [address] Sodium molar conc 146 mmol/L High 135-144 [facility] Comment on above: Performed By: #### E RTPF, CONNER, LIP, LIVP, TEGCR ####[address] [address] Urea nitrogen mass conc 57 mg/dL High 6-20 [facility] Comment on above: Performed By: #### E RTPF, CONNER, LIP, LIVP, TEGCR ####[address] [address] BUN/CRE Ratio NOT REPORTED Normal 9-20 [facility] Comment on above: Performed By: #### E RTPF, CONNER, LIP, LIVP, TEGCR ####[address] [address] Staging: NOT REPORTED Normal [facility] Comment on above: Performed By: #### E RTPF, CONNER, LIP, LIVP, TEGCR ####[address] [place] [address] CBCon 02-04-2018 Erythrocyte distribution width Auto Ratio (RBC) 18.7 % High 11.8-14.4 [facility] Comment on above: Performed By: #### E RTPF, CONNER, LIP, LIVP, TEGCR ####[address] [address] Hematocrit Auto Volume Fraction (Bld) 24.4 % Low 40.7-50.3 [facility] Comment on above: Performed By: #### E RTPF, CONNER, LIP, LIVP, TEGCR ####[address] [address] Hemoglobin mass conc (Bld) 7.0 g/dL Critically low 13.0-17.0 [facility] Comment on above: Performed By: #### E RTPF, CONNER, LIP, LIVP, TEGCR ####[address] [address] MCH Auto Entitic mass (RBC) 30.3 pg Normal 25.2-33.5 [facility] Comment on above: Performed By: #### E RTPF, CONNER, LIP, LIVP, TEGCR ####[address] [address] MCHC Auto mass conc (RBC) 28.7 g/dL Normal 28.4-34.8 [facility] Comment on above: Performed By: #### E RTPF, CONNER, LIP, LIVP, TEGCR ####[address] [address] MCV Auto Entitic volume (RBC) 105.6 fL High 82.6-102.9 [facility] Comment on above: Performed By: #### E RTPF, CONNER, LIP, LIVP, TEGCR ####[address] [address] NRBC Automated 2.0 per 100 WBC High 0.0 [facility] Comment on above: Performed By: #### E RTPF, CONNER, LIP, LIVP, TEGCR ####[address] [address] Platelet mean volume Auto Entitic volume (Bld) 12.0 fL Normal 8.1-13.5 [facility] Comment on above: Performed By: #### E RTPF, CONNER, LIP, LIVP, TEGCR ####[address] [address] Platelets Auto #/vol (Bld) 433 10*3/uL Normal 138-453 [facility] Comment on above: Performed By: #### E RTPF, CONNER, LIP, LIVP, TEGCR ####[address] [address] RBC Auto #/vol (Bld) 2.31 10*6/uL Low 4.21-5.77 [facility] Comment on above: Performed By: #### E RTPF, CONNER, LIP, LIVP, TEGCR ####[address] [address] WBC Auto #/vol (Bld) 31.9 10*3/uL Critically high 3.5-11.3 [facility] Comment on above: Performed By: #### E RTPF, CONNER, LIP, LIVP, TEGCR ####[address] [address] Creatinine,Random Uron 02-04 Creatinine mass conc 50.3 mg/dL Normal 39.0-259.[address] [facility] Comment on above: Performed By: #### E RTPF, CONNER, LIP, LIVP, TEGCR ####[address] [address] Cult,Aerobe/Anaerobeon 02-04 Cult,Aerobe/Anaerobe Specimen Descriptio n .ABDOMEN .DRAINAGE SWABSpecial Requests NOT REPORTEDDirect Exam MANY NEUTROPHILS NO BACTERIA SEEN Culture NO GROWTH 5 DAYSReport Status FINAL 02/04/2018 Normal [facility] Comment on above: Performed By: #### E RTPF, CONNER, LIP, LIVP, TEGCR ####[address] [place] [address] Lactate, Sepsison 02-04-2018 Lactic Acid,Sep Wbld 1.1 mmol/L Normal 0.5-1.[address] [facility] Comment on above: Performed By: #### E RTPF, CONNER, LIP, LIVP, TEGCR ####[address] [address] Lactic Acid, Sepsis NOT REPORTED Normal 0.5-1.9 [facility] Comment on above: Performed By: #### E RTPF, CONNER, LIP, LIVP, TEGCR ####[address] [address] Liver Profileon 02-04-2018 Albumin mass conc 1.9 g/dL Low 3.5-5.2 [facility] Comment on above: Performed By: #### E RTPF, CONNER, LIP, LIVP, TEGCR ####[address] [address] Albumin/Globulin mass ratio 0.5 {ratio} Low 1.0-2.5 [facility] Comment on above: Performed By: #### E RTPF, CONNER, LIP, LIVP, TEGCR ####[address] [address] Alkaline Phos 80 U/L Normal 40-129 [facility] Comment on above: Performed By: #### E RTPF, CONNER, LIP, LIVP, TEGCR ####[address] [address] ALT enzyme act/vol 15 U/L Normal 5-41 [facility] Comment on above: Performed By: #### E RTPF, CONNER, LIP, LIVP, TEGCR ####[address] [address] AST enzyme act/vol 39 U/L Normal <40 [facility] Comment on above: Performed By: #### E RTPF, CONNER, LIP, LIVP, TEGCR ####[address] [place] [address] Bilirubin Ql (U) 0.46 mg/dL Normal 0.3-1.2 [facility] Comment on above: Performed By: #### E RTPF, CONNER, LIP, LIVP, TEGCR ####[address] [address] Bilirubin, Indirect 0.18 mg/dL Normal 0.00-1.00 [facility] Comment on above: Performed By: #### E RTPF, CONNER, LIP, LIVP, TEGCR ####[address] [place] [address] Bilirubin.direct mass conc 0.28 mg/dL Normal <0.31 [facility] Comment on above: Performed By: #### E RTPF, CONNER, LIP, LIVP, TEGCR ####[facility] [place] [address] Protein mass conc 6.1 g/dL Low 6.4-8.3 [facility] Comment on above: Performed By: #### E RTPF, CONNER, LIP, LIVP, TEGCR ####[address] [address] Globulin Calculated mass conc (S) NOT REPORTED Normal 1.5-3.8 [facility] Comment on above: Performed By: #### E RTPF, CONNER, LIP, LIVP, TEGCR ####[address] [place] [address] Osmolalityon 02-04-2018 Osmolality 331 mOsm/kg Critically high 275-295 [facility] Comment on above: Performed By: #### E RTPF, CONNER, LIP, LIVP, TEGCR ####[address] [place] [address] Osmolality, Urineon 02-05-20 18 Osmolality - Urine 286 mOsm/kg Normal 80-1300 [facility] Comment on above: Performed By: #### E RTPF, CONNER, LIP, LIVP, TEGCR ####[address] [place] [address] Sodium, Random Uron 02-05-20 18 Na Conc. Urine 26 mmol/L Normal [facility] Comment on above: Result Comment: No n ormal range established. Performed By: #### E RTPF, CONNER, LIP, LIVP, TEGCR ####[address] [address] Basic Metabolic Profon 02-03 (cont.) Normal [facility] Comment on above: Result Comment: Aver age GFR for 50-59 years old: 93 mL/min/1.73sq mChronic Kidney Disease: <60 mL/min/1.73sq mKidney failure: <15 mL/min/1.73sq meGFR calculated using average adult body mass. Additional eGFR calculator available at:http://www.[employer]/multiple_crcl_2012.htm Performed By: #### E RTPF, CONNER, LIP, LIVP, TEGCR ####[address] [place] [address] Anion gap 3 molar conc 5 mmol/L Low 9-17 [facility] Comment on above: Performed By: #### E RTPF, CONNER, LIP, LIVP, TEGCR ####[address] [place] [address] Calcium mass conc 7.4 mg/dL Low 8.6-10.4 [facility] Comment on above: Performed By: #### E RTPF, CONNER, LIP, LIVP, TEGCR ####[address] [address] Chloride molar conc 121 mmol/L High 98-107 [facility] Comment on above: Performed By: #### E RTPF, CONNER, LIP, LIVP, TEGCR ####[facility] [address] [place] [address] CO2 molar conc 20 mmol/L Normal 20-31 [facility] Comment on above: Performed By: #### E RTPF, CONNER, LIP, LIVP, TEGCR ####[facility] [address] [place] [address] Creatinine mass conc 1.94 mg/dL High 0.70-1.[address] [facility] Comment on above: Performed By: #### E RTPF, CONNER, LIP, LIVP, TEGCR ####[address] [place] [address] GFR, Amer 43 mL/min Low >60 [facility] Comment on above: Performed By: #### E RTPF, CONNER, LIP, LIVP, TEGCR ####[facility] [place] [address] GFR,non Amer 36 mL/min Low >[address] [facility] Comment on above: Performed By: #### E RTPF, CONNER, LIP, LIVP, TEGCR ####[facility] [address] [place] [address] Glucose mass conc 166 mg/dL High 70-99 [facility] Comment on above: Performed By: #### E RTPF, CONNER, LIP, LIVP, TEGCR ####[facility] [place] [address] Potassium molar conc 4.1 mmol/L Normal 3.7-5.[address] [facility] Comment on above: Performed By: #### E RTPF, CONNER, LIP, LIVP, TEGCR ####[address] [place] [address] Sodium molar conc 146 mmol/L High 135-144 [facility] Comment on above: Performed By: #### E RTPF, CONNER, LIP, LIVP, TEGCR ####[address] [place] [address] Urea nitrogen mass conc 34 mg/dL High 6-20 [facility] Comment on above: Performed By: #### E RTPF, CONNER, LIP, LIVP, TEGCR ####[address] [place] [address] BUN/CRE Ratio NOT REPORTED Normal -20 [facility] Comment on above: Performed By: #### E RTPF, CONNER, LIP, LIVP, TEGCR ####[address] [address] Staging: NOT REPORTED Normal [facility] Comment on above: Performed By: #### E RTPF, CONNER, LIP, LIVP, TEGCR ####[address] [address] (cont.) Normal [facility] Comment on above: Result Comment: Aver age GFR for 50-59 years old: 93 mL/min/1.73sq mChronic Kidney Disease: <60 mL/min/1.73sq mKidney failure: <15 mL/min/1.73sq meGFR calculated using average adult body mass. Additional eGFR calculator available at:http://www.[employer].com/multiple_crcl_2012.htm Performed By: #### E RTPF, CONNER, LIP, LIVP, TEGCR ####[address] [place] [address] Anion gap 3 molar conc 14 mmol/L Normal -17 [facility] Comment on above: Performed By: #### E RTPF, CONNER, LIP, LIVP, TEGCR ####[facility] [address] [place] [address] Calcium mass conc 7.7 mg/dL Low 8.6-10.4 [facility] Comment on above: Performed By: #### E RTPF, CONNER, LIP, LIVP, TEGCR ####[facility] [place] [address] Chloride molar conc 122 mmol/L High 98-107 [facility] Comment on above: Performed By: #### E RTPF, CONNER, LIP, LIVP, TEGCR ####[facility] [place] [address] CO2 molar conc 20 mmol/L Normal 20-31 [facility] Comment on above: Performed By: #### E RTPF, CONNER, LIP, LIVP, TEGCR ####[facility] [place] [address] Creatinine mass conc 1.72 mg/dL High 0.70-1.[address] [facility] Comment on above: Performed By: #### E RTPF, CONNER, LIP, LIVP, TEGCR ####[facility] [place] [address] GFR, Amer 50 mL/min Low >60 [facility] Comment on above: Performed By: #### E RTPF, CONNER, LIP, LIVP, TEGCR ####[facility] [address] [place] [address] GFR,non Amer 41 mL/min Low >[address] [facility] Comment on above: Performed By: #### E RTPF, CONNER, LIP, LIVP, TEGCR ####[address] [place] [address] Glucose mass conc 193 mg/dL High 70-99 [facility] Comment on above: Performed By: #### E RTPF, CONNER, LIP, LIVP, TEGCR ####[address] [place] [address] Potassium molar conc 4.5 mmol/L Normal 3.7-5.[address] [facility] Comment on above: Performed By: #### E RTPF, CONNER, LIP, LIVP, TEGCR ####[address] [address] Sodium molar conc 156 mmol/L High 135-144 [facility] Comment on above: Performed By: #### E RTPF, CONNER, LIP, LIVP, TEGCR ####[address] [address] Urea nitrogen mass conc 30 mg/dL High 6-20 [facility] Comment on above: Performed By: #### E RTPF, CONNER, LIP, LIVP, TEGCR ####[address] [address] BUN/CRE Ratio NOT REPORTED Normal 9-20 [facility] Comment on above: Performed By: #### E RTPF, CONNER, LIP, LIVP, TEGCR ####[address] [address] Staging: NOT REPORTED Normal [facility] Comment on above: Performed By: #### E RTPF, CONNER, LIP, LIVP, TEGCR ####[address] [place] [address] CBCon 02-03-2018 Erythrocyte distribution width Auto Ratio (RBC) 18.5 % High 11.8-14.4 [facility] Comment on above: Performed By: #### E RTPF, CONNER, LIP, LIVP, TEGCR ####[address] [place] [address] Hematocrit Auto Volume Fraction (Bld) 27.9 % Low 40.7-50.3 [facility] Comment on above: Performed By: #### E RTPF, CONNER, LIP, LIVP, TEGCR ####[address] [address] Hemoglobin mass conc (Bld) 7.6 g/dL Low 13.0-17.0 [facility] Comment on above: Performed By: #### E RTPF, CONNER, LIP, LIVP, TEGCR ####[address] [address] MCH Auto Entitic mass (RBC) 30.3 pg Normal 25.2-33.5 [facility] Comment on above: Performed By: #### E RTPF, CONNER, LIP, LIVP, TEGCR ####[address] [address] MCHC Auto mass conc (RBC) 27.2 g/dL Low 28.4-34.8 [facility] Comment on above: Performed By: #### E RTPF, CONNER, LIP, LIVP, TEGCR ####[address] [address] MCV Auto Entitic volume (RBC) 111.2 fL High 82.6-102.9 [facility] Comment on above: Performed By: #### E RTPF, CONNER, LIP, LIVP, TEGCR ####[address] [address] NRBC Automated 1.0 per 100 WBC High 0.0 [facility] Comment on above: Performed By: #### E RTPF, CONNER, LIP, LIVP, TEGCR ####[address] [address] Platelet mean volume Auto Entitic volume (Bld) 11.3 fL Normal 8.1-13.5 [facility] Comment on above: Performed By: #### E RTPF, CONNER, LIP, LIVP, TEGCR ####[address] [address] Platelets Auto #/vol (Bld) 533 10*3/uL High 138-453 [facility] Comment on above: Performed By: #### E RTPF, CONNER, LIP, LIVP, TEGCR ####[address] [address] RBC Auto #/vol (Bld) 2.51 10*6/uL Low 4.21-5.77 [facility] Comment on above: Performed By: #### E RTPF, CONNER, LIP, LIVP, TEGCR ####[address] [address] WBC Auto #/vol (Bld) 33.5 10*3/uL Critically high 3.5-11.3 [facility] Comment on above: Performed By: #### E RTPF, CONNER, LIP, LIVP, TEGCR ####[address] [address] Erythrocyte distribution width Auto Ratio (RBC) 18.2 % High 11.8-14.4 [facility] Comment on above: Performed By: #### E RTPF, CONNER, LIP, LIVP, TEGCR ####[address] [address] Hematocrit Auto Volume Fraction (Bld) 29.0 % Low 40.7-50.3 [facility] Comment on above: Performed By: #### E RTPF, CONNER, LIP, LIVP, TEGCR ####[address] [address] Hemoglobin mass conc (Bld) 8.1 g/dL Low 13.0-17.0 [facility] Comment on above: Performed By: #### E RTPF, CONNER, LIP, LIVP, TEGCR ####[address] [address] MCH Auto Entitic mass (RBC) 30.5 pg Normal 25.2-33.5 [facility] Comment on above: Performed By: #### E RTPF, CONNER, LIP, LIVP, TEGCR ####[address] [address] MCHC Auto mass conc (RBC) 27.9 g/dL Low 28.4-34.8 [facility] Comment on above: Performed By: #### E RTPF, CONNER, LIP, LIVP, TEGCR ####[address] [address] MCV Auto Entitic volume (RBC) 109.0 fL High 82.6-102.9 [facility] Comment on above: Performed By: #### E RTPF, CONNER, LIP, LIVP, TEGCR ####[address] [address] NRBC Automated 1.6 per 100 WBC High 0.0 [facility] Comment on above: Performed By: #### E RTPF, CONNER, LIP, LIVP, TEGCR ####[address] [address] Platelet mean volume Auto Entitic volume (Bld) 11.1 fL Normal 8.1-13.5 [facility] Comment on above: Performed By: #### E RTPF, CONNER, LIP, LIVP, TEGCR ####[address] [address] Platelets Auto #/vol (Bld) 576 10*3/uL High 138-453 [facility] Comment on above: Performed By: #### E RTPF, CONNER, LIP, LIVP, TEGCR ####[address] [place] [address] RBC Auto #/vol (Bld) 2.66 10*6/uL Low 4.21-5.77 [facility] Comment on above: Performed By: #### E RTPF, CONNER, LIP, LIVP, TEGCR ####[address] [address] WBC Auto #/vol (Bld) 30.0 10*3/uL High 3.5-11.3 [facility] Comment on above: Performed By: #### E RTPF, CONNER, LIP, LIVP, TEGCR ####[address] [address] Cult,Bloodon 02-03-2018 Cult,Blood Specimen Description .BLOOD Special Requests RT FOREARM 6 ML Culture NO GROWTH 6 DAYS Report Status FINAL 02/03/2018 [facility] Comment on above: Performed By: #### E RTPF, CONNER, LIP, LIVP, TEGCR ####[address] [address] Cult,Blood Specimen Description .BLOOD Special Requests 1ML RT HAND Culture NO GROWTH 6 DAYS Report Status FINAL 02/03/2018 [facility] Comment on above: Performed By: #### E RTPF, CONNER, LIP, LIVP, TEGCR ####[address] [address] Lactic Acid,Whole Blon 02-03 Lactic Acid,Whole Bl 2.0 mmol/L Normal 0.7-2.[address] [facility] Comment on above: Performed By: #### E RTPF, CONNER, LIP, LIVP, TEGCR ####[address] [address] Magnesiumon 02-03-2018 Magnesium mass conc 2.1 mg/dL Normal 1.6-2.6 [facility] Comment on above: Performed By: #### E RTPF, CONNER, LIP, LIVP, TEGCR ####[facility] [address] [place] [address] Magnesium mass conc 2.4 mg/dL Normal 1.6-2.6 [facility] Comment on above: Performed By: #### E RTPF, CONNER, LIP, LIVP, TEGCR ####[facility] [address] [place] [address] NA (Sodium)on 02-03-2018 Sodium molar conc 150 mmol/L High 135-144 [facility] Comment on above: Performed By: #### E RTPF, CONNER, LIP, LIVP, TEGCR ####[facility] [address] [place] [address] Sodium molar conc 155 mmol/L High 135-144 [facility] Comment on above: Performed By: #### E RTPF, CONNER, LIP, LIVP, TEGCR ####[facility] [address] [place] [address] Phosphorus, Inorg.on 018 Phosphorus, Inorg. 2.0 mg/dL Low 2.5-4.5 [facility] Comment on above: Performed By: #### E RTPF, CONNER, LIP, LIVP, TEGCR ####[facility] [address] [place] [address] Phosphorus, Inorg. 3.2 mg/dL Normal 2.5-4.5 [facility] Comment on above: Performed By: #### E RTPF, CONNER, LIP, LIVP, TEGCR ####[facility] [place] [address] XR CHEST PORTABLEon 02-04-20 18 XR CHEST [...] by:NADEGE Romeroigned by:Ramakrishna Santana MD02/03/18Final result Normal [facility] Basic Metabolic Profon 02-02 (cont.) Normal [facility] Comment on above: Result Comment: Aver age GFR for 50-59 years old: 93 mL/min/1.73sq mChronic Kidney Disease: <60 mL/min/1.73sq mKidney failure: <15 mL/min/1.73sq meGFR calculated using average adult body mass. Additional eGFR calculator available at:http://www.[employer]/multiple_crcl_2012.htm Performed By: #### E RTPF, CONNER, LIP, LIVP, TEGCR ####[facility] [address] [place] [address] Anion gap 3 molar conc 14 mmol/L Normal 9-17 [facility] Comment on above: Performed By: #### E RTPF, CONNER, LIP, LIVP, TEGCR ####[facility] [place] [address] Calcium mass conc 7.6 mg/dL Low 8.6-10.4 [facility] Comment on above: Performed By: #### E RTPF, CONNER, LIP, LIVP, TEGCR ####[facility] [place] [address] Chloride molar conc 125 mmol/L High 98-107 [facility] Comment on above: Performed By: #### E RTPF, CONNER, LIP, LIVP, TEGCR ####[facility] [address] [place] [address] CO2 molar conc 20 mmol/L Normal 20-31 [facility] Comment on above: Performed By: #### E RTPF, CONNER, LIP, LIVP, TEGCR ####[facility] [place] [address] Creatinine mass conc 1.57 mg/dL High 0.70-1.[address] [facility] Comment on above: Performed By: #### E RTPF, CONNER, LIP, LIVP, TEGCR ####[address] [place] [address] GFR, Amer 55 mL/min Low >60 [facility] Comment on above: Performed By: #### E RTPF, CONNER, LIP, LIVP, TEGCR ####[address] [address] GFR,non Amer 46 mL/min Low >[address] [facility] Comment on above: Performed By: #### E RTPF, CONNER, LIP, LIVP, TEGCR ####[facility] [place] [address] Glucose mass conc 162 mg/dL High 70-99 [facility] Comment on above: Performed By: #### E RTPF, CONNER, LIP, LIVP, TEGCR ####[address] [place] [address] Potassium molar conc 3.8 mmol/L Normal 3.7-5.[address] [facility] Comment on above: Performed By: #### E RTPF, CONNER, LIP, LIVP, TEGCR ####[address] [place] [address] Sodium molar conc 159 mmol/L High 135-144 [facility] Comment on above: Performed By: #### E RTPF, CONNER, LIP, LIVP, TEGCR ####[address] [address] Urea nitrogen mass conc 30 mg/dL High 6-20 [facility] Comment on above: Performed By: #### E RTPF, CONNER, LIP, LIVP, TEGCR ####[address] [address] BUN/CRE Ratio NOT REPORTED Normal - [facility] Comment on above: Performed By: #### E RTPF, CONNER, LIP, LIVP, TEGCR ####[address] [address] Staging: NOT REPORTED Normal [facility] Comment on above: Performed By: #### E RTPF, CONNER, LIP, LIVP, TEGCR ####[address] [address] CBCon 02-02-2018 Erythrocyte distribution width Auto Ratio (RBC) 18.4 % High 11.8-14.4 [facility] Comment on above: Performed By: #### E RTPF, CONNER, LIP, LIVP, TEGCR ####[address] [address] Hematocrit Auto Volume Fraction (Bld) 29.2 % Low 40.7-50.3 [facility] Comment on above: Performed By: #### E RTPF, CONNER, LIP, LIVP, TEGCR ####[address] [address] Hemoglobin mass conc (Bld) 8.3 g/dL Low 13.0-17.0 [facility] Comment on above: Performed By: #### E RTPF, CONNER, LIP, LIVP, TEGCR ####[address] [address] MCH Auto Entitic mass (RBC) 30.1 pg Normal 25.2-33.5 [facility] Comment on above: Performed By: #### E RTPF, CONNER, LIP, LIVP, TEGCR ####[address] [address] MCHC Auto mass conc (RBC) 28.4 g/dL Normal 28.4-34.8 [facility] Comment on above: Performed By: #### E RTPF, CONNER, LIP, LIVP, TEGCR ####[address] [address] MCV Auto Entitic volume (RBC) 105.8 fL High 82.6-102.9 [facility] Comment on above: Performed By: #### E RTPF, CONNER, LIP, LIVP, TEGCR ####[address] [address] NRBC Automated 1.1 per 100 WBC High 0.0 [facility] Comment on above: Performed By: #### E RTPF, CONNER, LIP, LIVP, TEGCR ####[address] [address] Platelet mean volume Auto Entitic volume (Bld) 11.0 fL Normal 8.1-13.5 [facility] Comment on above: Performed By: #### E RTPF, CONNER, LIP, LIVP, TEGCR ####[address] [address] Platelets Auto #/vol (Bld) 675 10*3/uL High 138-453 [facility] Comment on above: Performed By: #### E RTPF, CONNER, LIP, LIVP, TEGCR ####[address] [address] RBC Auto #/vol (Bld) 2.76 10*6/uL Low 4.21-5.77 [facility] Comment on above: Performed By: #### E RTPF, CONNER, LIP, LIVP, TEGCR ####[address] [address] WBC Auto #/vol (Bld) 31.5 10*3/uL Critically high 3.5-11.3 [facility] Comment on above: Performed By: #### E RTPF, CONNER, LIP, LIVP, TEGCR ####[address] [address] Calcium, Ionicon 02-02-2018 Calcium mass conc 1.11 mmol/L Low 1.13-1.33 [facility] Comment on above: Performed By: #### E RTPF, CONNER, LIP, LIVP, TEGCR ####[address] [address] Creatinine,Random Uron 02-02 Creatinine mass conc 48.7 mg/dL Normal 39.0-259.[address] [facility] Comment on above: Performed By: #### E RTPF, CONNER, LIP, LIVP, TEGCR ####[address] [address] NA (Sodium)on 02-02-2018 Sodium molar conc 162 mmol/L Critically high 135-144 [facility] Comment on above: Performed By: #### E RTPF, CONNER, LIP, LIVP, TEGCR ####[address] [address] Sodium molar conc 156 mmol/L High 135-144 [facility] Comment on above: Performed By: #### E RTPF, CONNER, LIP, LIVP, TEGCR ####[address] [address] Sodium molar conc 155 mmol/L High 135-144 [facility] Comment on above: Performed By: #### E RTPF, CONNER, LIP, LIVP, TEGCR ####[facility] [address] [place] [address] Osmolalityon 02-02-2018 Osmolality 333 mOsm/kg Critically high 275-295 [facility] Comment on above: Result Comment: ADDE D ON Performed By: #### E RTPF, CONNER, LIP, LIVP, TEGCR ####[facility] [address] [place] [address] Osmolality, Urineon 02-03-20 18 Osmolality - Urine 336 mOsm/kg Normal 80-1300 [facility] Comment on above: Performed By: #### E RTPF, CONNER, LIP, LIVP, TEGCR ####[address] [place] [address] Sodium, Random Uron 02-03-20 18 Na Conc. Urine 38 mmol/L Normal [facility] Comment on above: Result Comment: No n ormal range established. Performed By: #### E RTPF, CONNER, LIP, LIVP, TEGCR ####[address] [address] Basic Metabolic Profon 02-01 (cont.) Normal [facility] Comment on above: Result Comment: Aver age GFR for 50-59 years old: 93 mL/min/1.73sq mChronic Kidney Disease: <60 mL/min/1.73sq mKidney failure: <15 mL/min/1.73sq meGFR calculated using average adult body mass. Additional eGFR calculator available at:http://www.[employer]/multiple_crcl_2012.htm Performed By: #### E RTPF, CONNER, LIP, LIVP, TEGCR ####[facility] [address] [place] [address] Anion gap 3 molar conc 15 mmol/L Normal 9-17 [facility] Comment on above: Performed By: #### E RTPF, CONNER, LIP, LIVP, TEGCR ####[facility] [address] [place] [address] Calcium mass conc 7.6 mg/dL Low 8.6-10.4 [facility] Comment on above: Performed By: #### E RTPF, CONNER, LIP, LIVP, TEGCR ####[address] [address] Chloride molar conc 121 mmol/L High 98-107 [facility] Comment on above: Performed By: #### E RTPF, CONNER, LIP, LIVP, TEGCR ####[facility] [place] [address] CO2 molar conc 22 mmol/L Normal 20-31 [facility] Comment on above: Performed By: #### E RTPF, CONNER, LIP, LIVP, TEGCR ####[facility] [place] [address] Creatinine mass conc 1.43 mg/dL High 0.70-1.[address] [facility] Comment on above: Performed By: #### E RTPF, CONNER, LIP, LIVP, TEGCR ####[facility] [place] [address] GFR, Amer >60 Normal >60 [facility] Comment on above: Performed By: #### E RTPF, CONNER, LIP, LIVP, TEGCR ####[facility] [address] [place] [address] GFR,non Amer 51 mL/min Low >[address] [facility] Comment on above: Performed By: #### E RTPF, CONNER, LIP, LIVP, TEGCR ####[facility] [place] [address] Glucose mass conc 156 mg/dL High 70-99 [facility] Comment on above: Performed By: #### E RTPF, CONNER, LIP, LIVP, TEGCR ####[address] [place] [address] Potassium molar conc 3.8 mmol/L Normal 3.7-5.[address] [facility] Comment on above: Performed By: #### E RTPF, CONNER, LIP, LIVP, TEGCR ####[facility] [address] [place] [address] Sodium molar conc 158 mmol/L High 135-144 [facility] Comment on above: Performed By: #### E RTPF, CONNER, LIP, LIVP, TEGCR ####[address] [address] Urea nitrogen mass conc 25 mg/dL High 6-20 [facility] Comment on above: Performed By: #### E RTPF, CONNER, LIP, LIVP, TEGCR ####[address] [address] BUN/CRE Ratio NOT REPORTED Normal 9-20 [facility] Comment on above: Performed By: #### E RTPF, CONNER, LIP, LIVP, TEGCR ####[address] [address] Staging: NOT REPORTED Normal [facility] Comment on above: Performed By: #### E RTPF, CONNER, LIP, LIVP, TEGCR ####[address] [place] [address] CBC with Diffon 02-01-2018 Abs. Basophil 0.00 k/uL Normal 0.0-0.2 [facility] Comment on above: Performed By: #### E RTPF, CONNER, LIP, LIVP, TEGCR ####[address] [address] Abs.Imm.Granulocyte 0.95 k/uL High 0.00-0.30 [facility] Comment on above: Performed By: #### E RTPF, CONNER, LIP, LIVP, TEGCR ####[address] [address] Abs.Neutrophil (Seg) 19.43 k/uL High 1.8-7.[address] [facility] Comment on above: Performed By: #### E RTPF, CONNER, LIP, LIVP, TEGCR ####[address] [address] Basophils/100 WBC Auto (Bld) 0 % Normal 0-2 [facility] Comment on above: Performed By: #### E RTPF, CONNER, LIP, LIVP, TEGCR ####[address] [address] Eosinophils Auto #/vol (Bld) 0.24 10*3/uL Normal 0.0-0.4 [facility] Comment on above: Performed By: #### E RTPF, CONNER, LIP, LIVP, TEGCR ####[address] [address] Eosinophils/100 WBC Auto (Bld) 1 % Normal 1-4 [facility] Comment on above: Performed By: #### E RTPF, CONNER, LIP, LIVP, TEGCR ####[address] [address] Immature granulocytes #/vol (Bld) 4 % High 0 [facility] Comment on above: Performed By: #### E RTPF, CONNER, LIP, LIVP, TEGCR ####[address] [address] Lymphocytes Auto #/vol (Bld) 2.13 10*3/uL Normal 1.0-4.8 [facility] Comment on above: Performed By: #### E RTPF, CONNER, LIP, LIVP, TEGCR ####[address] [address] Lymphocytes/100 WBC Auto (Bld) 9 % Low 24-44 [facility] Comment on above: Performed By: #### E RTPF, CONNER, LIP, LIVP, TEGCR ####[address] [address] Monocytes Auto #/vol (Bld) 0.95 10*3/uL High 0.1-0.8 [facility] Comment on above: Performed By: #### E RTPF, CONNER, LIP, LIVP, TEGCR ####[address] [address] Monocytes/100 WBC Auto (Bld) 4 % Normal 1-7 [facility] Comment on above: Performed By: #### E RTPF, CONNER, LIP, LIVP, TEGCR ####[address] [address] Morphology Interp Eduard (Bld) ANISOCYTOSIS PRESENT Normal [facility] Comment on above: Result Comment: MACR OCYTOSIS PRESENT Performed By: #### E RTPF, CONNER, LIP, LIVP, TEGCR ####[address] [address] Neutrophil (Seg) 82 % High 36-66 [facility] Comment on above: Performed By: #### E RTPF, CONNER, LIP, LIVP, TEGCR ####[address] [address] Nucleated RBC/100 WBC Ratio (Bld) 1 per 100 WBC High 0 [facility] Comment on above: Performed By: #### E RTPF, CONNER, LIP, LIVP, TEGCR ####[address] [address] Erythrocyte distribution width Auto Ratio (RBC) 18.3 % High 11.8-14.4 [facility] Comment on above: Performed By: #### E RTPF, CONNER, LIP, LIVP, TEGCR ####[address] [address] Hematocrit Auto Volume Fraction (Bld) 33.7 % Low 40.7-50.3 [facility] Comment on above: Performed By: #### E RTPF, CONNER, LIP, LIVP, TEGCR ####[address] [address] Hemoglobin mass conc (Bld) 8.8 g/dL Low 13.0-17.0 [facility] Comment on above: Performed By: #### E RTPF, CONNER, LIP, LIVP, TEGCR ####[address] [address] MCH Auto Entitic mass (RBC) 30.1 pg Normal 25.2-33.5 [facility] Comment on above: Performed By: #### E RTPF, CONNER, LIP, LIVP, TEGCR ####[address] [address] MCHC Auto mass conc (RBC) 26.1 g/dL Low 28.4-34.8 [facility] Comment on above: Performed By: #### E RTPF, CONNER, LIP, LIVP, TEGCR ####[address] [address] MCV Auto Entitic volume (RBC) 115.4 fL High 82.6-102.9 [facility] Comment on above: Performed By: #### E RTPF, CONNER, LIP, LIVP, TEGCR ####[address] [address] NRBC Automated 1.2 per 100 WBC High 0.0 [facility] Comment on above: Performed By: #### E RTPF, CONNER, LIP, LIVP, TEGCR ####[address] [address] Platelet mean volume Auto Entitic volume (Bld) 10.7 fL Normal 8.1-13.5 [facility] Comment on above: Performed By: #### E RTPF, CONNER, LIP, LIVP, TEGCR ####[address] [address] Platelets Auto #/vol (Bld) 775 10*3/uL High 138-453 [facility] Comment on above: Performed By: #### E RTPF, CONNER, LIP, LIVP, TEGCR ####[address] [address] RBC Auto #/vol (Bld) 2.92 10*6/uL Low 4.21-5.77 [facility] Comment on above: Performed By: #### E RTPF, CONNER, LIP, LIVP, TEGCR ####[address] [address] WBC Auto #/vol (Bld) 23.7 10*3/uL High 3.5-11.3 [facility] Comment on above: Performed By: #### E RTPF, CONNER, LIP, LIVP, TEGCR ####[address] [address] Auto Diff Performed NOT REPORTED Normal [facility] Comment on above: Performed By: #### E RTPF, CONNER, LIP, LIVP, TEGCR ####[address] [address] Platelets Auto #/vol (Bld) NOT REPORTED Normal [facility] Comment on above: Performed By: #### E RTPF, CONNER, LIP, LIVP, TEGCR ####[address] [place] [address] RBC morphology finding Nom (Bld) NOT REPORTED Normal [facility] Comment on above: Performed By: #### E RTPF, CONNER, LIP, LIVP, TEGCR ####[address] [id number] WBC Morphology NOT REPORTED Normal [facility] Comment on above: Performed By: #### E RTPF, CONNER, LIP, LIVP, TEGCR ####[address] [place], [place] [id number] NA (Sodium)on 02-01-2018 Sodium molar conc 152 mmol/L High 135-144 [facility] Comment on above: Performed By: #### E RTPF, CONNER, LIP, LIVP, TEGCR ####[address] [id number] OPERATIVE REPORTon 8 OPERATIVE REPORT [address] [id number] OPERATIVE REPORTPATIENT NAME: ALEJO FLOYD : 1960[facility] REC NO: [id number] [id number] ADMIT DATE: 01/19/2018PROVIDER: Ele MottDATE OF PROCEDURE: [...] patient's sister, Alex Floyd, his power of criminal attorney. All risks, benefits and alternatives were [...] this, cut in a single layer and [id number] stitches frominferior to the proximal aspect of [...] of this case.ELE MOTTD: 02/01/2018 15:34:43 GEORGE/[email or web address]#: [id number] Doc#: [id number]: Ketan Quinn MD Nallelyshaggy Jones Normal [facility] XR CHEST PORTABLEon 02-02-20 18 XR CHEST [...] by:NADEGE Mendezigned by:Jeramy Solano MD02/01/18inal result Normal [facility] Basic Metabolic Profon 01-31 (cont.) Normal [facility] Comment on above: Result Comment: Aver age GFR for 50-59 years old: 93 mL/min/1.73sq mChronic Kidney Disease: <60 mL/min/1.73sq mKidney failure: <15 mL/min/1.73sq meGFR calculated using average adult body mass. Additional eGFR calculator available at:http://www.[employer]/multiple_crcl_2012.htm Performed By: #### E RTPF, CONNER, LIP, LIVP, TEGCR ####[facility] [address] [place] [address] Anion gap 3 molar conc 14 mmol/L Normal 9-17 [facility] Comment on above: Performed By: #### E RTPF, CONNER, LIP, LIVP, TEGCR ####[address] [place] [address] Calcium mass conc 8.1 mg/dL Low 8.6-10.4 [facility] Comment on above: Performed By: #### E RTPF, CONNER, LIP, LIVP, TEGCR ####[address] [place] [address] Chloride molar conc 114 mmol/L High 98-107 [facility] Comment on above: Performed By: #### E RTPF, CONNER, LIP, LIVP, TEGCR ####[address] [place] [address] CO2 molar conc 23 mmol/L Normal 20-31 [facility] Comment on above: Performed By: #### E RTPF, CONNER, LIP, LIVP, TEGCR ####[facility] [place] [address] Creatinine mass conc 1.31 mg/dL High 0.70-1.[address] [facility] Comment on above: Performed By: #### E RTPF, CONNER, LIP, LIVP, TEGCR ####[facility] [place] [address] GFR, Amer >60 Normal >60 [facility] Comment on above: Performed By: #### E RTPF, CONNER, LIP, LIVP, TEGCR ####[address] [address] GFR,non Amer 56 mL/min Low >[address] [facility] Comment on above: Performed By: #### E RTPF, CONNER, LIP, LIVP, TEGCR ####[address] [address] Glucose mass conc 156 mg/dL High 70-99 [facility] Comment on above: Performed By: #### E RTPF, CONNER, LIP, LIVP, TEGCR ####[address] [address] Potassium molar conc 3.3 mmol/L Low 3.7-5.[address] [facility] Comment on above: Performed By: #### E RTPF, CONNER, LIP, LIVP, TEGCR ####[facility] [place] [address] Sodium molar conc 151 mmol/L High 135-144 [facility] Comment on above: Performed By: #### E RTPF, CONNER, LIP, LIVP, TEGCR ####[address] [address] Urea nitrogen mass conc 20 mg/dL Normal 6-20 [facility] Comment on above: Performed By: #### E RTPF, CONNER, LIP, LIVP, TEGCR ####[address] [place] [address] BUN/CRE Ratio NOT REPORTED Normal 9-20 [facility] Comment on above: Performed By: #### E RTPF, CONNER, LIP, LIVP, TEGCR ####[address] [address] Staging: NOT REPORTED Normal [facility] Comment on above: Performed By: #### E RTPF, CONNER, LIP, LIVP, TEGCR ####[place] [address] CBC with Diffon 01-31-2018 Abs. Basophil 0.00 k/uL Normal 0.0-0.2 [facility] Comment on above: Performed By: #### E RTPF, CONNER, LIP, LIVP, TEGCR ####[place] [address] Abs.Imm.Granulocyte 0.00 k/uL Normal 0.00-0.30 [facility] Comment on above: Performed By: #### E RTPF, CONNER, LIP, LIVP, TEGCR ####[place] [address] Abs.Neutrophil (Seg) 21.68 k/uL High 1.8-7.[address] [facility] Comment on above: Performed By: #### E RTPF, CONNER, LIP, LIVP, TEGCR ####[place] [address] Basophils/100 WBC Auto (Bld) 0 % Normal 0-2 [facility] Comment on above: Performed By: #### E RTPF, CONNER, LIP, LIVP, TEGCR ####[place] [address] Eosinophils Auto #/vol (Bld) 0.25 10*3/uL Normal 0.0-0.4 [facility] Comment on above: Performed By: #### E RTPF, CONNER, LIP, LIVP, TEGCR ####[address] [address] Eosinophils/100 WBC Auto (Bld) 1 % Normal 1-4 [facility] Comment on above: Performed By: #### E RTPF, CONNER, LIP, LIVP, TEGCR ####[address] [address] Immature granulocytes #/vol (Bld) 0 % Normal 0 [facility] Comment on above: Performed By: #### E RTPF, CONNER, LIP, LIVP, TEGCR ####[address] [address] Lymphocytes Auto #/vol (Bld) 2.77 10*3/uL Normal 1.0-4.8 [facility] Comment on above: Performed By: #### E RTPF, CONNER, LIP, LIVP, TEGCR ####[address] [address] Lymphocytes/100 WBC Auto (Bld) 11 % Low 24-44 [facility] Comment on above: Performed By: #### E RTPF, CONNER, LIP, LIVP, TEGCR ####[address] [address] Monocytes Auto #/vol (Bld) 0.50 10*3/uL Normal 0.1-0.8 [facility] Comment on above: Performed By: #### E RTPF, CONNER, LIP, LIVP, TEGCR ####[address] [address] Monocytes/100 WBC Auto (Bld) 2 % Normal 1-7 [facility] Comment on above: Performed By: #### E RTPF, CONNER, LIP, LIVP, TEGCR ####[address] [address] Morphology Interp Eduard (Bld) MACROCYTOSIS PRESENT Normal [facility] Comment on above: Result Comment: ANIS OCYTOSIS PRESENT Performed By: #### E RTPF, CONNER, LIP, LIVP, TEGCR ####[facility] [place] [address] Neutrophil (Seg) 86 % High 36-66 [facility] Comment on above: Performed By: #### E RTPF, CONNER, LIP, LIVP, TEGCR ####[address] [place] [address] Nucleated RBC/100 WBC Ratio (Bld) 1 per 100 WBC High 0 [facility] Comment on above: Performed By: #### E RTPF, CONNER, LIP, LIVP, TEGCR ####[address] [place] [address] Erythrocyte distribution width Auto Ratio (RBC) 17.6 % High 11.8-14.4 [facility] Comment on above: Performed By: #### E RTPF, CONNER, LIP, LIVP, TEGCR ####[address] [place] [address] Hematocrit Auto Volume Fraction (Bld) 30.9 % Low 40.7-50.3 [facility] Comment on above: Performed By: #### E RTPF, CONNER, LIP, LIVP, TEGCR ####[address] [place] [address] Hemoglobin mass conc (Bld) 8.8 g/dL Low 13.0-17.0 [facility] Comment on above: Performed By: #### E RTPF, CONNER, LIP, LIVP, TEGCR ####[address] [place] [address] MCH Auto Entitic mass (RBC) 29.9 pg Normal 25.2-33.5 [facility] Comment on above: Performed By: #### E RTPF, CONNER, LIP, LIVP, TEGCR ####[address] [place] [address] MCHC Auto mass conc (RBC) 28.5 g/dL Normal 28.4-34.8 [facility] Comment on above: Performed By: #### E RTPF, CONNER, LIP, LIVP, TEGCR ####[address] [address] MCV Auto Entitic volume (RBC) 105.1 fL High 82.6-102.9 [facility] Comment on above: Performed By: #### E RTPF, CONNER, LIP, LIVP, TEGCR ####[address] [address] NRBC Automated 0.5 per 100 WBC High 0.0 [facility] Comment on above: Performed By: #### E RTPF, CONNER, LIP, LIVP, TEGCR ####[address] [address] Platelet mean volume Auto Entitic volume (Bld) 10.6 fL Normal 8.1-13.5 [facility] Comment on above: Performed By: #### E RTPF, CONNER, LIP, LIVP, TEGCR ####[address] [address] Platelets Auto #/vol (Bld) 852 10*3/uL High 138-453 [facility] Comment on above: Performed By: #### E RTPF, CONNER, LIP, LIVP, TEGCR ####[address] [address] RBC Auto #/vol (Bld) 2.94 10*6/uL Low 4.21-5.77 [facility] Comment on above: Performed By: #### E RTPF, CONNER, LIP, LIVP, TEGCR ####[address] [address] WBC Auto #/vol (Bld) 25.2 10*3/uL High 3.5-11.3 [facility] Comment on above: Performed By: #### E RTPF, CONNER, LIP, LIVP, TEGCR ####[address] [address] Auto Diff Performed NOT REPORTED Normal [facility] Comment on above: Performed By: #### E RTPF, CONNER, LIP, LIVP, TEGCR ####[address] [address] Platelets Auto #/vol (Bld) NOT REPORTED Normal [facility] Comment on above: Performed By: #### E RTPF, CONNER, LIP, LIVP, TEGCR ####[address] [address] RBC morphology finding Nom (Bld) NOT REPORTED Normal [facility] Comment on above: Performed By: #### E RTPF, CONNER, LIP, LIVP, TEGCR ####[address] [address] WBC Morphology NOT REPORTED Normal [facility] Comment on above: Performed By: #### E RTPF, CONNER, LIP, LIVP, TEGCR ####[address] [address] Magnesiumon 01-31-2018 Magnesium mass conc 2.7 mg/dL High 1.6-2.6 [facility] Comment on above: Performed By: #### E RTPF, CONNER, LIP, LIVP, TEGCR ####[facility] [id number] [place] [address] Phosphorus, Inorg.on 018 Phosphorus, Inorg. 2.7 mg/dL Normal 2.5-4.5 [facility] Comment on above: Performed By: #### E RTPF, CONNER, LIP, LIVP, TEGCR ####[address] [address] Urinalysis w/ Microon 2017 ----- Normal [facility] Comment on above: Performed By: #### E RTPF, CONNER, LIP, LIVP, TEGCR ####[address] [address] Acetoacetic Acid,Ur Negative Normal NEG [facility] Comment on above: Performed By: #### E RTPF, CONNER, LIP, LIVP, TEGCR ####[address] [address] Bilirubin, SemiQt,Ur Negative Normal NEG [facility] Comment on above: Performed By: #### E RTPF, CONNER, LIP, LIVP, TEGCR ####[address] [address] Color YELLOW Normal YEL [facility] Comment on above: Performed By: #### E RTPF, CONNER, LIP, LIVP, TEGCR ####[address] [address] Epithelial cells 0 TO 2 Normal 0-5 [facility] Comment on above: Performed By: #### E RTPF, CONNER, LIP, LIVP, TEGCR ####[address] [address] Glucose,Semi-qnt,Ur Negative Normal NEG [facility] Comment on above: Performed By: #### E RTPF, CONNER, LIP, LIVP, TEGCR ####[address] [address] Hemoglobin, Ur MODERATE Abnormal NEG [facility] Comment on above: Performed By: #### E RTPF, CONNER, LIP, LIVP, TEGCR ####[address] [address] Leuckocyte Esterase Negative Normal NEG [facility] Comment on above: Performed By: #### E RTPF, CONNER, LIP, LIVP, TEGCR ####[address] [address] Nitrite,Ur Negative Normal NEG [facility] Comment on above: Performed By: #### E RTPF, CONNER, LIP, LIVP, TEGCR ####[address] [address] PH,Ur 6.5 Normal 5.0-8.0 [facility] Comment on above: Performed By: #### E RTPF, CONNER, LIP, LIVP, TEGCR ####[address] [address] Protein mass conc 1+ Abnormal NEG [facility] Comment on above: Performed By: #### E RTPF, CONNER, LIP, LIVP, TEGCR ####[address] [address] RBC Test strip #/vol (U) 5 TO 10 Normal 0-4 [facility] Comment on above: Result Comment: Refe rence range defined for non-centrifuged specimen. Performed By: #### E RTPF, CONNER, LIP, LIVP, TEGCR ####[address] [address] Spec. [place],Ur 1.018 Normal 1.005-1.03 0 [facility] Comment on above: Performed By: #### E RTPF, CONNER, LIP, LIVP, TEGCR ####[address] [address] Turbidity CLEAR Normal CLEAR [facility] Comment on above: Performed By: #### E RTPF, CONNER, LIP, LIVP, TEGCR ####[address] [address] Urine WBC's 0 TO 2 Normal 0-5 [facility] Comment on above: Performed By: #### E RTPF, CONNER, LIP, LIVP, TEGCR ####[address] [address] Urobilinogen,Ur Normal Normal NORM [facility] Comment on above: Performed By: #### E RTPF, CONNER, LIP, LIVP, TEGCR ####[address] [address] Amorphous Sediment NOT REPORTED Normal NONE [facility] Comment on above: Performed By: #### E RTPF, CONNER, LIP, LIVP, TEGCR ####[address] [address] Bacteria NOT REPORTED Normal NONE [facility] Comment on above: Performed By: #### E RTPF, CONNER, LIP, LIVP, TEGCR ####[address] [address] Casts NOT REPORTED Normal 0-8 [facility] Comment on above: Performed By: #### E RTPF, CONNER, LIP, LIVP, TEGCR ####[address] [address] Crystals NOT REPORTED Normal NONE [facility] Comment on above: Performed By: #### E RTPF, CONNER, LIP, LIVP, TEGCR ####[address] [address] Epithelial, Renal NOT REPORTED Normal 0 [facility] Comment on above: Performed By: #### E RTPF, CONNER, LIP, LIVP, TEGCR ####[address] [address] Mucus Strands NOT REPORTED Normal NONE [facility] Comment on above: Performed By: #### E RTPF, CONNER, LIP, LIVP, TEGCR ####[address] [address] Other Observations NOT REPORTED Normal NREQ [facility] Comment on above: Performed By: #### E RTPF, CONNER, LIP, LIVP, TEGCR ####[address] [address] Trichomonas NOT REPORTED Normal NONE [facility] Comment on above: Performed By: #### E RTPF, CONNER, LIP, LIVP, TEGCR ####[address] [address] Yeast NOT REPORTED Normal NONE [facility] Comment on above: Performed By: #### E RTPF, CONNER, LIP, LIVP, TEGCR ####[address] [address] CBC with Diffon 01-30-2018 Abs. Basophil 0.00 k/uL Normal 0.0-0.2 [facility] Comment on above: Performed By: #### E RTPF, CONNER, LIP, LIVP, TEGCR ####[address] [address] Abs.Imm.Granulocyte 0.22 k/uL Normal 0.00-0.30 [facility] Comment on above: Performed By: #### E RTPF, CONNER, LIP, LIVP, TEGCR ####[address] [address] Abs.Neutrophil (Seg) 17.57 k/uL High 1.8-7.[address] [facility] Comment on above: Performed By: #### E RTPF, CONNER, LIP, LIVP, TEGCR ####[address] [address] Basophils/100 WBC Auto (Bld) 0 % Normal 0-2 [facility] Comment on above: Performed By: #### E RTPF, CONNER, LIP, LIVP, TEGCR ####[address] [address] Eosinophils Auto #/vol (Bld) 0.22 10*3/uL Normal 0.0-0.4 [facility] Comment on above: Performed By: #### E RTPF, CONNER, LIP, LIVP, TEGCR ####[address] [address] Eosinophils/100 WBC Auto (Bld) 1 % Normal 1-4 [facility] Comment on above: Performed By: #### E RTPF, CONNER, LIP, LIVP, TEGCR ####[address] [address] Immature granulocytes #/vol (Bld) 1 % High 0 [facility] Comment on above: Performed By: #### E RTPF, CONNER, LIP, LIVP, TEGCR ####[address] [address] Lymphocytes Auto #/vol (Bld) 2.17 10*3/uL Normal 1.0-4.8 [facility] Comment on above: Performed By: #### E RTPF, CONNER, LIP, LIVP, TEGCR ####[address] [address] Lymphocytes/100 WBC Auto (Bld) 10 % Low 24-44 [facility] Comment on above: Performed By: #### E RTPF, CONNER, LIP, LIVP, TEGCR ####[address] [address] Monocytes Auto #/vol (Bld) 1.52 10*3/uL High 0.1-0.8 [facility] Comment on above: Performed By: #### E RTPF, CONNER, LIP, LIVP, TEGCR ####[address] [place] [address] Monocytes/100 WBC Auto (Bld) 7 % Normal 1-7 [facility] Comment on above: Performed By: #### E RTPF, CONNER, LIP, LIVP, TEGCR ####[address] [address] Morphology Interp Eduard (Bld) ANISOCYTOSIS PRESENT Normal [facility] Comment on above: Result Comment: INCR EASED BANDS PRESENT Performed By: #### E RTPF, CONNER, LIP, LIVP, TEGCR ####[address] [address] Neutrophil (Seg) 81 % High 36-66 [facility] Comment on above: Performed By: #### E RTPF, CONNER, LIP, LIVP, TEGCR ####[address] [address] Erythrocyte distribution width Auto Ratio (RBC) 17.1 % High 11.8-14.4 [facility] Comment on above: Performed By: #### E RTPF, CONNER, LIP, LIVP, TEGCR ####[address] [address] Hematocrit Auto Volume Fraction (Bld) 29.8 % Low 40.7-50.3 [facility] Comment on above: Performed By: #### E RTPF, CONNER, LIP, LIVP, TEGCR ####[address] [address] Hemoglobin mass conc (Bld) 8.9 g/dL Low 13.0-17.0 [facility] Comment on above: Performed By: #### E RTPF, CONNER, LIP, LIVP, TEGCR ####[address] [address] MCH Auto Entitic mass (RBC) 29.9 pg Normal 25.2-33.5 [facility] Comment on above: Performed By: #### E RTPF, CONNER, LIP, LIVP, TEGCR ####[address] [address] MCHC Auto mass conc (RBC) 29.9 g/dL Normal 28.4-34.8 [facility] Comment on above: Performed By: #### E RTPF, CONNER, LIP, LIVP, TEGCR ####[address] [address] MCV Auto Entitic volume (RBC) 100.0 fL Normal 82.6-102.9 [facility] Comment on above: Performed By: #### E RTPF, CONNER, LIP, LIVP, TEGCR ####[address] [address] NRBC Automated 0.1 per 100 WBC High 0.0 [facility] Comment on above: Performed By: #### E RTPF, CONNER, LIP, LIVP, TEGCR ####[address] [address] Platelet mean volume Auto Entitic volume (Bld) 10.5 fL Normal 8.1-13.5 [facility] Comment on above: Performed By: #### E RTPF, CONNER, LIP, LIVP, TEGCR ####[address] [address] Platelets Auto #/vol (Bld) 850 10*3/uL High 138-453 [facility] Comment on above: Performed By: #### E RTPF, CONNER, LIP, LIVP, TEGCR ####[address] [address] RBC Auto #/vol (Bld) 2.98 10*6/uL Low 4.21-5.77 [facility] Comment on above: Performed By: #### E RTPF, CONNER, LIP, LIVP, TEGCR ####[address] [address] WBC Auto #/vol (Bld) 21.7 10*3/uL High 3.5-11.3 [facility] Comment on above: Performed By: #### E RTPF, CONNER, LIP, LIVP, TEGCR ####[address] [address] Auto Diff Performed NOT REPORTED Normal [facility] Comment on above: Performed By: #### E RTPF, CONNER, LIP, LIVP, TEGCR ####[address] [address] Platelets Auto #/vol (Bld) NOT REPORTED Normal [facility] Comment on above: Performed By: #### E RTPF, CONNER, LIP, LIVP, TEGCR ####[address] [address] RBC morphology finding Nom (Bld) NOT REPORTED Normal [facility] Comment on above: Performed By: #### E RTPF, CONNER, LIP, LIVP, TEGCR ####[address] [address] WBC Morphology NOT REPORTED Normal [facility] Comment on above: Performed By: #### E RTPF, CONNER, LIP, LIVP, TEGCR ####[address] [address] Comp Metabolic Profon 2017 (cont.) Normal [facility] Comment on above: Result Comment: Aver age GFR for 50-59 years old: 93 mL/min/1.73sq mChronic Kidney Disease: <60 mL/min/1.73sq mKidney failure: <15 mL/min/1.73sq meGFR calculated using average adult body mass. Additional eGFR calculator available at:http://www.[employer]/multiple_crcl_2012.htm Performed By: #### E RTPF, CONNER, LIP, LIVP, TEGCR ####[facility] [place] [address] Albumin mass conc 2.6 g/dL Low 3.5-5.2 [facility] Comment on above: Performed By: #### E RTPF, CONNER, LIP, LIVP, TEGCR ####[address] [place] [address] Albumin/Globulin mass ratio 0.6 {ratio} Low 1.0-2.5 [facility] Comment on above: Performed By: #### E RTPF, CONNER, LIP, LIVP, TEGCR ####[address] [place] [address] Alkaline Phos 76 U/L Normal 40-129 [facility] Comment on above: Performed By: #### E RTPF, CONNER, LIP, LIVP, TEGCR ####[facility] [place] [address] ALT enzyme act/vol 21 U/L Normal 5-41 [facility] Comment on above: Performed By: #### E RTPF, CONNER, LIP, LIVP, TEGCR ####[facility] [place] [address] Anion gap 3 molar conc 10 mmol/L Normal 9-17 [facility] Comment on above: Performed By: #### E RTPF, CONNER, LIP, LIVP, TEGCR ####[facility] [place] [address] AST enzyme act/vol 51 U/L High <40 [facility] Comment on above: Performed By: #### E RTPF, CONNER, LIP, LIVP, TEGCR ####[facility] [id number] [place] [address] Bilirubin Ql (U) 0.98 mg/dL Normal 0.3-1.2 [facility] Comment on above: Performed By: #### E RTPF, CONNER, LIP, LIVP, TEGCR ####[address] [place] [address] Calcium mass conc 8.1 mg/dL Low 8.6-10.4 [facility] Comment on above: Performed By: #### E RTPF, CONNER, LIP, LIVP, TEGCR ####[address] [place] [address] Chloride molar conc 114 mmol/L High 98-107 [facility] Comment on above: Performed By: #### E RTPF, CONNER, LIP, LIVP, TEGCR ####[address] [address] CO2 molar conc 27 mmol/L Normal 20-31 [facility] Comment on above: Performed By: #### E RTPF, CONNER, LIP, LIVP, TEGCR ####[facility] [place] [address] Creatinine mass conc 1.47 mg/dL High 0.70-1.[address] [facility] Comment on above: Performed By: #### E RTPF, CONNER, LIP, LIVP, TEGCR ####[facility] [id number] [place] [address] GFR, Amer 60 mL/min Low >60 [facility] Comment on above: Performed By: #### E RTPF, CONNER, LIP, LIVP, TEGCR ####[facility] [place] [address] GFR,non Amer 49 mL/min Low >[address] [facility] Comment on above: Performed By: #### E RTPF, CONNER, LIP, LIVP, TEGCR ####[address] [address] Glucose mass conc 153 mg/dL High 70-99 [facility] Comment on above: Performed By: #### E RTPF, CONNER, LIP, LIVP, TEGCR ####[address] [address] Potassium molar conc 3.2 mmol/L Low 3.7-5.[address] [facility] Comment on above: Performed By: #### E RTPF, CONNER, LIP, LIVP, TEGCR ####[address] [address] Protein mass conc 6.7 g/dL Normal 6.4-8.3 [facility] Comment on above: Performed By: #### E RTPF, CONNER, LIP, LIVP, TEGCR ####[facility] [place] [address] Sodium molar conc 151 mmol/L High 135-144 [facility] Comment on above: Performed By: #### E RTPF, CONNER, LIP, LIVP, TEGCR ####[address] [address] Urea nitrogen mass conc 23 mg/dL High 6-20 [facility] Comment on above: Performed By: #### E RTPF, CONNER, LIP, LIVP, TEGCR ####[address] [place] [address] BUN/CRE Ratio NOT REPORTED Normal 9-20 [facility] Comment on above: Performed By: #### E RTPF, CONNER, LIP, LIVP, TEGCR ####[address] [address] Staging: NOT REPORTED Normal [facility] Comment on above: Performed By: #### E RTPF, CONNER, LIP, LIVP, TEGCR ####[facility] [address] [place], [place] [id number] Magnesiumon 01-30-2018 Magnesium mass conc 3.0 mg/dL High 1.6-2.6 [facility] Comment on above: Performed By: #### E RTPF, CONNER, LIP, LIVP, TEGCR ####[facility] [address] [place] [address] Phosphorus, Inorg.on 018 Phosphorus, Inorg. 1.9 mg/dL Low 2.5-4.5 [facility] Comment on above: Performed By: #### E RTPF, CONNER, LIP, LIVP, TEGCR ####[address] [place], [place] [id number] XR CHEST PORTABLEon 01-31-20 18 XR CHEST PORTABLE EXAMINATION:SINGLE X RAY VIEW OF THE CHEST01/30/2018 8:26 amCOMPARISON:01/29/2018HISTOR Y:ORDERING SYSTEM PROVIDED HISTORY: tachypneaTECHNOLOGIST PROVIDED HISTORY:tachypneaFINDINGS:The heart and mediastinal structures are stable. NG tube and right upperextremity PICC line are in place. Bibasilar atelectasis is present withsmall pleural effusions.IMPRESSION: Small pleural effusions with bibasilar atelectasisInterpreted by:NADEGE Rosalesigned by:Lauro Hood MD01/30/18inal result Normal [facility] Ammoniaon 01-29-2018 Ammonia mass conc (P) 33 umol/L Normal 16-60 [facility] Comment on above: Performed By: #### E RTPF, CONNER, LIP, LIVP, TEGCR ####[facility] [address] [place], [place] [id number] Basic Metabolic Profon 01-29 (cont.) Normal [facility] Comment on above: Result Comment: Aver age GFR for 50-59 years old: 93 mL/min/1.73sq mChronic Kidney Disease: <60 mL/min/1.73sq mKidney failure: <15 mL/min/1.73sq meGFR calculated using average adult body mass. Additional eGFR calculator available at:http://www.Yoke/multiple_crcl_2012.htm Performed By: #### E RTPF, CONNER, LIP, LIVP, TEGCR ####[facility] [address] [place] [address] Anion gap 3 molar conc 13 mmol/L Normal 9-17 [facility] Comment on above: Performed By: #### E RTPF, CONNER, LIP, LIVP, TEGCR ####[address] [place] [address] Calcium mass conc 7.6 mg/dL Low 8.6-10.4 [facility] Comment on above: Performed By: #### E RTPF, CONNER, LIP, LIVP, TEGCR ####[address] [place] [address] Chloride molar conc 110 mmol/L High 98-107 [facility] Comment on above: Performed By: #### E RTPF, CONNER, LIP, LIVP, TEGCR ####[facility] [address] [place] [address] CO2 molar conc 28 mmol/L Normal 20-31 [facility] Comment on above: Performed By: #### E RTPF, CONNER, LIP, LIVP, TEGCR ####[facility] [address] [place] [address] Creatinine mass conc 1.42 mg/dL High 0.70-1.[address] [facility] Comment on above: Performed By: #### E RTPF, CONNER, LIP, LIVP, TEGCR ####[facility] [address] [place] [address] GFR, Amer >60 Normal >60 [facility] Comment on above: Performed By: #### E RTPF, CONNER, LIP, LIVP, TEGCR ####[facility] [place] [address] GFR,non Amer 51 mL/min Low >[address] [facility] Comment on above: Performed By: #### E RTPF, CONNER, LIP, LIVP, TEGCR ####[facility] [place] [address] Glucose mass conc 131 mg/dL High 70-99 [facility] Comment on above: Performed By: #### E RTPF, CONNER, LIP, LIVP, TEGCR ####[facility] [place] [address] Potassium molar conc 3.9 mmol/L Normal 3.7-5.[address] [facility] Comment on above: Result Comment: SPEC IMEN SLIGHTLY HEMOLYZED, RESULTS MAY BE ADVERSELY AFFECTED. Performed By: #### E RTPF, CONNER, LIP, LIVP, TEGCR ####[facility] [place] [address] Sodium molar conc 151 mmol/L High 135-144 [facility] Comment on above: Performed By: #### E RTPF, CONNER, LIP, LIVP, TEGCR ####[facility] [address] [place] [address] Urea nitrogen mass conc 32 mg/dL High 6-20 [facility] Comment on above: Performed By: #### E RTPF, CONNER, LIP, LIVP, TEGCR ####[facility] [place] [address] BUN/CRE Ratio NOT REPORTED Normal 9-20 [facility] Comment on above: Performed By: #### E RTPF, CONNER, LIP, LIVP, TEGCR ####[address] [address] Staging: NOT REPORTED Normal [facility] Comment on above: Performed By: #### E RTPF, CONNER, LIP, LIVP, TEGCR ####[address] [address] Brain Natri. Peptideon 01-29 Natriuretic peptide B mass conc (Bld) Normal [facility] Comment on above: Result Comment: Pro- BNP Reference Range:Rule Out: <300Grey Zone: Age <50 300-450 Age 50-75 300-900 Age >75 300-1800Usually represents mild to moderate HF but other cardiopulmonary causes cannot be ruled out.Rule In: Age <50 >450 Age 50-75 >900 Age >75 >1800 Performed By: #### E RTPF, CONNER, LIP, LIVP, TEGCR ####[address] [address] Natriuretic peptide B mass conc (Bld) 1400 pg/mL High <300 [facility] Comment on above: Result Comment: Pro- BNP results cannot be compared to BNP results. Performed By: #### E RTPF, CONNER, LIP, LIVP, TEGCR ####[address] [address] CBC with Diffon 01-29-2018 Abs. Basophil 0.00 k/uL Normal 0.0-0.2 [facility] Comment on above: Performed By: #### E RTPF, CONNER, LIP, LIVP, TEGCR ####[address] [address] Abs.Imm.Granulocyte 0.00 k/uL Normal 0.00-0.30 [facility] Comment on above: Performed By: #### E RTPF, CONNER, LIP, LIVP, TEGCR ####[address] [place] [address] Abs.Neutrophil (Seg) 20.91 k/uL High 1.8-7.[address] [facility] Comment on above: Performed By: #### E RTPF, CONNER, LIP, LIVP, TEGCR ####[address] [address] Basophils/100 WBC Auto (Bld) 0 % Normal 0-2 [facility] Comment on above: Performed By: #### E RTPF, CONNER, LIP, LIVP, TEGCR ####[address] [address] Eosinophils Auto #/vol (Bld) 0.25 10*3/uL Normal 0.0-0.4 [facility] Comment on above: Performed By: #### E RTPF, CONNER, LIP, LIVP, TEGCR ####[address] [address] Eosinophils/100 WBC Auto (Bld) 1 % Normal 1-4 [facility] Comment on above: Performed By: #### E RTPF, CONNER, LIP, LIVP, TEGCR ####[address] [address] Immature granulocytes #/vol (Bld) 0 % Normal 0 [facility] Comment on above: Performed By: #### E RTPF, CONNER, LIP, LIVP, TEGCR ####[address] [address] Lymphocytes Auto #/vol (Bld) 2.21 10*3/uL Normal 1.0-4.8 [facility] Comment on above: Performed By: #### E RTPF, CONNER, LIP, LIVP, TEGCR ####[address] [address] Lymphocytes/100 WBC Auto (Bld) 9 % Low 24-44 [facility] Comment on above: Performed By: #### E RTPF, CONNER, LIP, LIVP, TEGCR ####[address] [address] Monocytes Auto #/vol (Bld) 1.23 10*3/uL High 0.1-0.8 [facility] Comment on above: Performed By: #### E RTPF, CONNER, LIP, LIVP, TEGCR ####[address] [address] Monocytes/100 WBC Auto (Bld) 5 % Normal 1-7 [facility] Comment on above: Performed By: #### E RTPF, CONNER, LIP, LIVP, TEGCR ####[address] [address] Morphology Interp Eduard (Bld) ANISOCYTOSIS PRESENT Normal [facility] Comment on above: Result Comment: TOXI C GRANULATION PRESENT Performed By: #### E RTPF, CONNER, LIP, LIVP, TEGCR ####[address] [address] Neutrophil (Seg) 85 % High 36-66 [facility] Comment on above: Performed By: #### E RTPF, CONNER, LIP, LIVP, TEGCR ####[address] [address] Nucleated RBC/100 WBC Ratio (Bld) 1 per 100 WBC High 0 [facility] Comment on above: Performed By: #### E RTPF, CONNER, LIP, LIVP, TEGCR ####[address] [address] Erythrocyte distribution width Auto Ratio (RBC) 17.1 % High 11.8-14.4 [facility] Comment on above: Performed By: #### E RTPF, CONNER, LIP, LIVP, TEGCR ####[address] [address] Hematocrit Auto Volume Fraction (Bld) 27.6 % Low 40.7-50.3 [facility] Comment on above: Performed By: #### E RTPF, CONNER, LIP, LIVP, TEGCR ####[address] [address] Hemoglobin mass conc (Bld) 8.4 g/dL Low 13.0-17.0 [facility] Comment on above: Performed By: #### E RTPF, CONNER, LIP, LIVP, TEGCR ####[address] [address] MCH Auto Entitic mass (RBC) 30.3 pg Normal 25.2-33.5 [facility] Comment on above: Performed By: #### E RTPF, CONNER, LIP, LIVP, TEGCR ####[address] [address] MCHC Auto mass conc (RBC) 30.4 g/dL Normal 28.4-34.8 [facility] Comment on above: Performed By: #### E RTPF, CONNER, LIP, LIVP, TEGCR ####[address] [address] MCV Auto Entitic volume (RBC) 99.6 fL Normal 82.6-102.9 [facility] Comment on above: Performed By: #### E RTPF, CONNER, LIP, LIVP, TEGCR ####[address] [address] NRBC Automated 0.0 per 100 WBC Normal 0.0 [facility] Comment on above: Performed By: #### E RTPF, CONNER, LIP, LIVP, TEGCR ####[address] [address] Platelet mean volume Auto Entitic volume (Bld) 10.9 fL Normal 8.1-13.5 [facility] Comment on above: Performed By: #### E RTPF, CONNER, LIP, LIVP, TEGCR ####[address] [address] Platelets Auto #/vol (Bld) 738 10*3/uL High 138-453 [facility] Comment on above: Performed By: #### E RTPF, CONNER, LIP, LIVP, TEGCR ####[address] [address] RBC Auto #/vol (Bld) 2.77 10*6/uL Low 4.21-5.77 [facility] Comment on above: Performed By: #### E RTPF, CONNER, LIP, LIVP, TEGCR ####[address] [address] WBC Auto #/vol (Bld) 24.6 10*3/uL High 3.5-11.3 [facility] Comment on above: Performed By: #### E RTPF, CONNER, LIP, LIVP, TEGCR ####[address] [address] Auto Diff Performed NOT REPORTED Normal [facility] Comment on above: Performed By: #### E RTPF, CONNER, LIP, LIVP, TEGCR ####[address] [address] Platelets Auto #/vol (Bld) NOT REPORTED Normal [facility] Comment on above: Performed By: #### E RTPF, CONNER, LIP, LIVP, TEGCR ####[address] [address] RBC morphology finding Nom (Bld) NOT REPORTED Normal [facility] Comment on above: Performed By: #### E RTPF, CONNER, LIP, LIVP, TEGCR ####[facility] [address] [place] [address] WBC Morphology NOT REPORTED Normal [facility] Comment on above: Performed By: #### E RTPF, CONNER, LIP, LIVP, TEGCR ####[facility] [address] [place] [address] CT ABDOMEN PELVIS W IV CONTR Ольга [...] by:NADEGE Escalanteigned by:Cassie Torres MD01/29/18Final result Normal [facility] Triglycerideson 01-29-2018 Triglyceride mass conc 147 mg/dL Normal <150 [facility] Comment on above: Result Comment: Trig lyceride Guidelines: <150 Desirable 150- 199 Borderline 200-499 High >499 Very high Based on AHA Guidelines for fasting triglyceride, February 2012. Performed By: #### E RTPF, CONNER, LIP, LIVP, TEGCR ####[address] [place], [place] [id number] Triglyceride mass conc 149 mg/dL Normal <150 [facility] Comment on above: Result Comment: Trig lyceride Guidelines: <150 Desirable 150- 199 Borderline 200-499 High >499 Very high Based on AHA Guidelines for fasting triglyceride, February 2012. Performed By: #### E RTPF, CONNER, LIP, LIVP, TEGCR ####[facility] [address] [place], [place] [id number] XR CHEST PORTABLEon 01-30-20 18 XR CHEST [...] by:NADEGE Braunigned by:Cassie Albarado MD01/29/18Final result Normal [facility] Basic Metabolic Profon 01-28 (cont.) Normal [facility] Comment on above: Result Comment: Aver age GFR for 50-59 years old: 93 mL/min/1.73sq mChronic Kidney Disease: <60 mL/min/1.73sq mKidney failure: <15 mL/min/1.73sq meGFR calculated using average adult body mass. Additional eGFR calculator available at:http://www.Yoke/multiple_crcl_2012.htm Performed By: #### E RTPF, CONNER, LIP, LIVP, TEGCR ####[address] [place] [address] Anion gap 3 molar conc 12 mmol/L Normal 9-17 [facility] Comment on above: Performed By: #### E RTPF, CONNER, LIP, LIVP, TEGCR ####[address] [address] Calcium mass conc 7.7 mg/dL Low 8.6-10.4 [facility] Comment on above: Performed By: #### E RTPF, CONNER, LIP, LIVP, TEGCR ####[facility] [place] [address] Chloride molar conc 105 mmol/L Normal 98-107 [facility] Comment on above: Performed By: #### E RTPF, CONNER, LIP, LIVP, TEGCR ####[facility] [address] [place] [address] CO2 molar conc 29 mmol/L Normal 20-31 [facility] Comment on above: Performed By: #### E RTPF, CONNER, LIP, LIVP, TEGCR ####[address] [place] [address] Creatinine mass conc 1.67 mg/dL High 0.70-1.[address] [facility] Comment on above: Performed By: #### E RTPF, CONNER, LIP, LIVP, TEGCR ####[facility] [address] [place] [address] GFR, Amer 52 mL/min Low >60 [facility] Comment on above: Performed By: #### E RTPF, CONNER, LIP, LIVP, TEGCR ####[facility] [address] [place] [address] GFR,non Amer 43 mL/min Low >[address] [facility] Comment on above: Performed By: #### E RTPF, CONNER, LIP, LIVP, TEGCR ####[facility] [place] [address] Glucose mass conc 130 mg/dL High 70-99 [facility] Comment on above: Performed By: #### E RTPF, CONNER, LIP, LIVP, TEGCR ####[address] [place] [address] Potassium molar conc 3.4 mmol/L Low 3.7-5.[address] [facility] Comment on above: Performed By: #### E RTPF, CONNER, LIP, LIVP, TEGCR ####[facility] [place] [address] Sodium molar conc 146 mmol/L High 135-144 [facility] Comment on above: Performed By: #### E RTPF, CONNER, LIP, LIVP, TEGCR ####[facility] [address] [place] [address] Urea nitrogen mass conc 35 mg/dL High 6-20 [facility] Comment on above: Performed By: #### E RTPF, CONNER, LIP, LIVP, TEGCR ####[address] [place] [address] BUN/CRE Ratio NOT REPORTED Normal 9-20 [facility] Comment on above: Performed By: #### E RTPF, CONNER, LIP, LIVP, TEGCR ####[address] [place] [address] Staging: NOT REPORTED Normal [facility] Comment on above: Performed By: #### E RTPF, CONNER, LIP, LIVP, TEGCR ####[address] [place] [address] (cont.) Normal [facility] Comment on above: Result Comment: Aver age GFR for 50-59 years old: 93 mL/min/1.73sq mChronic Kidney Disease: <60 mL/min/1.73sq mKidney failure: <15 mL/min/1.73sq meGFR calculated using average adult body mass. Additional eGFR calculator available at:http://www.Yoke/multiple_crcl_2012.htm Performed By: #### E RTPF, CONNER, LIP, LIVP, TEGCR ####[address] [address] Anion gap 3 molar conc 11 mmol/L Normal 9-17 [facility] Comment on above: Performed By: #### E RTPF, CONNER, LIP, LIVP, TEGCR ####[address] [place] [address] Calcium mass conc 8.2 mg/dL Low 8.6-10.4 [facility] Comment on above: Performed By: #### E RTPF, CONNER, LIP, LIVP, TEGCR ####[address] [place] [address] Chloride molar conc 99 mmol/L Normal 98-107 [facility] Comment on above: Performed By: #### E RTPF, CONNER, LIP, LIVP, TEGCR ####[address] [place] [address] CO2 molar conc 32 mmol/L High 20-31 [facility] Comment on above: Performed By: #### E RTPF, CONNER, LIP, LIVP, TEGCR ####[address] [address] Creatinine mass conc 1.81 mg/dL High 0.70-1.[address] [facility] Comment on above: Performed By: #### E RTPF, CONNER, LIP, LIVP, TEGCR ####[facility] [address] [place] [address] GFR, Amer 47 mL/min Low >60 [facility] Comment on above: Performed By: #### E RTPF, CONNER, LIP, LIVP, TEGCR ####[address] [address] GFR,non Amer 39 mL/min Low >[address] [facility] Comment on above: Performed By: #### E RTPF, CONNER, LIP, LIVP, TEGCR ####[address] [address] Glucose mass conc 160 mg/dL High 70-99 [facility] Comment on above: Performed By: #### E RTPF, CONNER, LIP, LIVP, TEGCR ####[facility] [place] [address] Potassium molar conc 4.7 mmol/L Normal 3.7-5.[address] [facility] Comment on above: Performed By: #### E RTPF, CONNER, LIP, LIVP, TEGCR ####[address] [address] Sodium molar conc 142 mmol/L Normal 135-144 [facility] Comment on above: Performed By: #### E RTPF, CONNER, LIP, LIVP, TEGCR ####[address] [address] Urea nitrogen mass conc 39 mg/dL High 6-20 [facility] Comment on above: Performed By: #### E RTPF, CONNER, LIP, LIVP, TEGCR ####[address] [place] [address] BUN/CRE Ratio NOT REPORTED Normal - [facility] Comment on above: Performed By: #### E RTPF, CONNER, LIP, LIVP, TEGCR ####[facility] [address] [place] [address] Staging: NOT REPORTED Normal [facility] Comment on above: Performed By: #### E RTPF, CONNER, LIP, LIVP, TEGCR ####[address] [place] [address] C-Reactive Proteinon 018 CRP mass conc 320.1 mg/L High 0.0-5.0 [facility] Comment on above: Result Comment: ADDE D ON Performed By: #### E RTPF, CONNER, LIP, LIVP, TEGCR ####[address] [address] CBC with Diffon 01-28-2018 Abs. Basophil 0.00 k/uL Normal 0.0-0.2 [facility] Comment on above: Performed By: #### E RTPF, CONNER, LIP, LIVP, TEGCR ####[address] [place] [address] Abs.Imm.Granulocyte 0.00 k/uL Normal 0.00-0.30 [facility] Comment on above: Performed By: #### E RTPF, CONNER, LIP, LIVP, TEGCR ####[address] [place] [address] Abs.Neutrophil (Seg) 29.16 k/uL High 1.8-7.[address] [facility] Comment on above: Performed By: #### E RTPF, CONNER, LIP, LIVP, TEGCR ####[address] [address] Basophils/100 WBC Auto (Bld) 0 % Normal 0-2 [facility] Comment on above: Performed By: #### E RTPF, CONNER, LIP, LIVP, TEGCR ####[address] [address] Eosinophils Auto #/vol (Bld) 0.00 10*3/uL Normal 0.0-0.4 [facility] Comment on above: Performed By: #### E RTPF, CONNER, LIP, LIVP, TEGCR ####[address] [address] Eosinophils/100 WBC Auto (Bld) 0 % Low 1-4 [facility] Comment on above: Performed By: #### E RTPF, CONNER, LIP, LIVP, TEGCR ####[address] [address] Immature granulocytes #/vol (Bld) 0 % Normal 0 [facility] Comment on above: Performed By: #### E RTPF, CONNER, LIP, LIVP, TEGCR ####[address] [address] Lymphocytes Auto #/vol (Bld) 1.62 10*3/uL Normal 1.0-4.8 [facility] Comment on above: Performed By: #### E RTPF, CONNER, LIP, LIVP, TEGCR ####[address] [address] Lymphocytes/100 WBC Auto (Bld) 5 % Low 24-44 [facility] Comment on above: Performed By: #### E RTPF, CONNER, LIP, LIVP, TEGCR ####[address] [place] [address] Monocytes Auto #/vol (Bld) 1.62 10*3/uL High 0.1-0.8 [facility] Comment on above: Performed By: #### E RTPF, CONNER, LIP, LIVP, TEGCR ####[address] [address] Monocytes/100 WBC Auto (Bld) 5 % Normal 1-7 [facility] Comment on above: Performed By: #### E RTPF, CONNER, LIP, LIVP, TEGCR ####[address] [address] Morphology Interp Eduard (Bld) ANISOCYTOSIS PRESENT Normal [facility] Comment on above: Result Comment: INCR EASED BANDS PRESENT Performed By: #### E RTPF, CONNER, LIP, LIVP, TEGCR ####[address] [address] Neutrophil (Seg) 90 % High 36-66 [facility] Comment on above: Performed By: #### E RTPF, CONNER, LIP, LIVP, TEGCR ####[address] [address] WBC Auto #/vol (Bld) 32.4 10*3/uL Critically high 3.5-11.3 [facility] Comment on above: Result Comment: TEST CONFIRMED Performed By: #### E RTPF, CONNER, LIP, LIVP, TEGCR ####[address] [address] Erythrocyte distribution width Auto Ratio (RBC) 16.6 % High 11.8-14.4 [facility] Comment on above: Performed By: #### E RTPF, CONNER, LIP, LIVP, TEGCR ####[address] [address] Hematocrit Auto Volume Fraction (Bld) 30.3 % Low 40.7-50.3 [facility] Comment on above: Performed By: #### E RTPF, CONNER, LIP, LIVP, TEGCR ####[address] [address] Hemoglobin mass conc (Bld) 9.6 g/dL Low 13.0-17.0 [facility] Comment on above: Performed By: #### E RTPF, CONNER, LIP, LIVP, TEGCR ####[address] [address] MCH Auto Entitic mass (RBC) 30.6 pg Normal 25.2-33.5 [facility] Comment on above: Performed By: #### E RTPF, CONNER, LIP, LIVP, TEGCR ####[address] [address] MCHC Auto mass conc (RBC) 31.7 g/dL Normal 28.4-34.8 [facility] Comment on above: Performed By: #### E RTPF, CONNER, LIP, LIVP, TEGCR ####[address] [address] MCV Auto Entitic volume (RBC) 96.5 fL Normal 82.6-102.9 [facility] Comment on above: Performed By: #### E RTPF, CONNER, LIP, LIVP, TEGCR ####[address] [address] NRBC Automated 0.0 per 100 WBC Normal 0.0 [facility] Comment on above: Performed By: #### E RTPF, CONNER, LIP, LIVP, TEGCR ####[address] [address] Platelet mean volume Auto Entitic volume (Bld) 10.9 fL Normal 8.1-13.5 [facility] [facility] Comment on above: Performed By: #### E RTPF, CONNER, LIP, LIVP, TEGCR ####[address] [address] Platelets Auto #/vol (Bld) 642 10*3/uL High 138-453 [facility] Comment on above: Performed By: #### E RTPF, CONNER, LIP, LIVP, TEGCR ####[address] [address] RBC Auto #/vol (Bld) 3.14 10*6/uL Low 4.21-5.77 [facility] Comment on above: Performed By: #### E RTPF, CONNER, LIP, LIVP, TEGCR ####[address] [address] Auto Diff Performed NOT REPORTED Normal [facility] Comment on above: Performed By: #### E RTPF, CONNER, LIP, LIVP, TEGCR ####[address] [address] Platelets Auto #/vol (Bld) NOT REPORTED Normal [facility] Comment on above: Performed By: #### E RTPF, CONNER, LIP, LIVP, TEGCR ####[address] [address] RBC morphology finding Nom (Bld) NOT REPORTED Normal [facility] Comment on above: Performed By: #### E RTPF, CONNER, LIP, LIVP, TEGCR ####[address] [address] WBC Morphology NOT REPORTED Normal [facility] Comment on above: Performed By: #### E RTPF, CONNER, LIP, LIVP, TEGCR ####[address] [address] [address] ABDOMEN PELVIS W IV CONTR Ольга [...] by:NADEGE Dormanigned by:Hudson Anaya MD01/27/18Final result Normal [facility] Liver Profileon 01-28-2018 Albumin mass conc 2.5 g/dL Low 3.5-5.2 [facility] Comment on above: Performed By: #### E RTPF, CONNER, LIP, LIVP, TEGCR ####[address] [address] Albumin/Globulin mass ratio 0.7 {ratio} Low 1.0-2.5 [facility] Comment on above: Performed By: #### E RTPF, CONNER, LIP, LIVP, TEGCR ####[address] [address] Alkaline Phos 77 U/L Normal 40-129 [facility] Comment on above: Performed By: #### E RTPF, CONNER, LIP, LIVP, TEGCR ####[address] [address] ALT enzyme act/vol 25 U/L Normal 5-41 [facility] Comment on above: Performed By: #### E RTPF, CONNER, LIP, LIVP, TEGCR ####[address] [address] AST enzyme act/vol 55 U/L High <40 [facility] Comment on above: Performed By: #### E RTPF, CONNER, LIP, LIVP, TEGCR ####[address] [address] Bilirubin Ql (U) 1.32 mg/dL High 0.3-1.2 [facility] Comment on above: Performed By: #### E RTPF, CONNER, LIP, LIVP, TEGCR ####[address] [address] Bilirubin, Indirect 0.59 mg/dL Normal 0.00-1.00 [facility] Comment on above: Performed By: #### E RTPF, CONNER, LIP, LIVP, TEGCR ####[address] [address] Bilirubin.direct mass conc 0.73 mg/dL High <0.31 [facility] Comment on above: Performed By: #### E RTPF, CONNER, LIP, LIVP, TEGCR ####[facility] [address] [place] [address] Protein mass conc 6.3 g/dL Low 6.4-8.3 [facility] Comment on above: Performed By: #### E RTPF, CONNER, LIP, LIVP, TEGCR ####[facility] [address] [place] [address] Globulin Calculated mass conc (S) NOT REPORTED Normal 1.5-3.8 [facility] Comment on above: Performed By: #### E RTPF, CONNER, LIP, LIVP, TEGCR ####[facility] [address] [place] [address] Magnesiumon 01-28-2018 Magnesium mass conc 2.7 mg/dL High 1.6-2.6 [facility] Comment on above: Performed By: #### E RTPF, CONNER, LIP, LIVP, TEGCR ####[facility] [address] [place] [address] Phosphorus, Inorg.on 018 Phosphorus, Inorg. 3.6 mg/dL Normal 2.5-4.5 [facility] Comment on above: Performed By: #### E RTPF, CONNER, LIP, LIVP, TEGCR ####[facility] [address] [place] [address] Prealbuminon 01-28-2018 Prealbumin mass conc 4.8 mg/dL Low 20-[address] [facility] Comment on above: Performed By: #### E RTPF, CONNER, LIP, LIVP, TEGCR ####[facility] [address] [place] [address] TSH w/reflex to FT4on 2017 Thyrotropin Qn 2.70 m[IU]/L Normal 0.30-5.00 [facility] Comment on above: Performed By: #### E RTPF, CONNER, LIP, LIVP, TEGCR ####[facility] [address] [place], [place] [id number] Transferrinon 01-28-2018 Transferrin mass conc 115 mg/dL Low 200-360 [facility] Comment on above: Performed By: #### E RTPF, CONNER, LIP, LIVP, TEGCR ####[facility] [address] [place], [place] [id number] XR CHEST PORTABLEon 01-29-20 18 XR CHEST [...] by:NADEGE Lancasterigned by:Hebert Best MD01/28/18inal result Normal [facility] Basic Metabolic Profon 01-27 (cont.) Normal [facility] Comment on above: Result Comment: Aver age GFR for 50-59 years old: 93 mL/min/1.73sq mChronic Kidney Disease: <60 mL/min/1.73sq mKidney failure: <15 mL/min/1.73sq meGFR calculated using average adult body mass. Additional eGFR calculator available at:http://www.globalrph.com/multiple_crcl_2012.htm Performed By: #### E RTPF, CONNER, LIP, LIVP, TEGCR ####[address] [address] Anion gap 3 molar conc 12 mmol/L Normal 9-17 [facility] Comment on above: Performed By: #### E RTPF, CONNER, LIP, LIVP, TEGCR ####[address] [address] Calcium mass conc 8.9 mg/dL Normal 8.6-10.4 [facility] Comment on above: Performed By: #### E RTPF, CONNER, LIP, LIVP, TEGCR ####[address] [address] Chloride molar conc 100 mmol/L Normal 98-107 [facility] Comment on above: Performed By: #### E RTPF, CONNER, LIP, LIVP, TEGCR ####[address] [address] CO2 molar conc 31 mmol/L Normal 20-31 [facility] Comment on above: Performed By: #### E RTPF, CONNER, LIP, LIVP, TEGCR ####[address] [address] Creatinine mass conc 1.26 mg/dL High 0.70-1.[address] [facility] Comment on above: Performed By: #### E RTPF, CONNER, LIP, LIVP, TEGCR ####[address] [address] GFR, Amer >60 Normal >60 [facility] Comment on above: Performed By: #### E RTPF, CONNER, LIP, LIVP, TEGCR ####[address] [address] GFR,non Amer 59 mL/min Low >[address] [facility] Comment on above: Performed By: #### E RTPF, CONNER, LIP, LIVP, TEGCR ####[address] [place] [address] Glucose mass conc 138 mg/dL High 70-99 [facility] Comment on above: Performed By: #### E RTPF, CONNER, LIP, LIVP, TEGCR ####[address] [address] Potassium molar conc 3.9 mmol/L Normal 3.7-5.[address] [facility] Comment on above: Performed By: #### E RTPF, CONNER, LIP, LIVP, TEGCR ####[address] [address] Sodium molar conc 143 mmol/L Normal 135-144 [facility] Comment on above: Performed By: #### E RTPF, CONNER, LIP, LIVP, TEGCR ####[address] [address] Urea nitrogen mass conc 27 mg/dL High 6-20 [facility] Comment on above: Performed By: #### E RTPF, CONNER, LIP, LIVP, TEGCR ####[address] [address] BUN/CRE Ratio NOT REPORTED Normal 9-20 [facility] Comment on above: Performed By: #### E RTPF, CONNER, LIP, LIVP, TEGCR ####[address] [address] Staging: NOT REPORTED Normal [facility] Comment on above: Performed By: #### E RTPF, CONNER, LIP, LIVP, TEGCR ####[address] [address] CBC with Diffon 01-27-2018 Abs. Basophil 0.00 k/uL Normal 0.0-0.2 [facility] Comment on above: Performed By: #### E RTPF, CONNER, LIP, LIVP, TEGCR ####[address] [address] Abs.Imm.Granulocyte 0.24 k/uL Normal 0.00-0.30 [facility] Comment on above: Performed By: #### E RTPF, CONNER, LIP, LIVP, TEGCR ####[address] [address] Abs.Neutrophil (Seg) 19.29 k/uL High 1.8-7.[address] [facility] Comment on above: Performed By: #### E RTPF, CONNER, LIP, LIVP, TEGCR ####[place] [address] Basophils/100 WBC Auto (Bld) 0 % Normal 0-2 [facility] Comment on above: Performed By: #### E RTPF, CONNER, LIP, LIVP, TEGCR ####[address] [address] Eosinophils Auto #/vol (Bld) 0.96 10*3/uL High 0.0-0.4 [facility] Comment on above: Performed By: #### E RTPF, CONNER, LIP, LIVP, TEGCR ####[address] [address] Eosinophils/100 WBC Auto (Bld) 4 % Normal 1-4 [facility] Comment on above: Performed By: #### E RTPF, CONNER, LIP, LIVP, TEGCR ####[address] [address] Immature granulocytes #/vol (Bld) 1 % High 0 [facility] Comment on above: Performed By: #### E RTPF, CONNER, LIP, LIVP, TEGCR ####[address] [address] Lymphocytes Auto #/vol (Bld) 2.65 10*3/uL Normal 1.0-4.8 [facility] Comment on above: Performed By: #### E RTPF, CONNER, LIP, LIVP, TEGCR ####[address] [address] Lymphocytes/100 WBC Auto (Bld) 11 % Low 24-44 [facility] Comment on above: Performed By: #### E RTPF, CONNER, LIP, LIVP, TEGCR ####[address] [address] Monocytes Auto #/vol (Bld) 0.96 10*3/uL High 0.1-0.8 [facility] Comment on above: Performed By: #### E RTPF, CONNER, LIP, LIVP, TEGCR ####[address] [address] Monocytes/100 WBC Auto (Bld) 4 % Normal 1-7 [facility] Comment on above: Performed By: #### E RTPF, CONNER, LIP, LIVP, TEGCR ####[address] [address] Morphology Interp Eduard (Bld) ANISOCYTOSIS PRESENT Normal [facility] Comment on above: Result Comment: INCR EASED BANDS PRESENTTOXIC GRANULATION PRESENT Performed By: #### E RTPF, CONNER, LIP, LIVP, TEGCR ####[address] [address] Neutrophil (Seg) 80 % High 36-66 [facility] Comment on above: Performed By: #### E RTPF, CONNER, LIP, LIVP, TEGCR ####[address] [place] [address] Nucleated RBC/100 WBC Ratio (Bld) 1 per 100 WBC High 0 [facility] Comment on above: Performed By: #### E RTPF, CONNER, LIP, LIVP, TEGCR ####[address] [address] Erythrocyte distribution width Auto Ratio (RBC) 16.1 % High 11.8-14.4 [facility] Comment on above: Performed By: #### E RTPF, CONNER, LIP, LIVP, TEGCR ####[address] [address] Hematocrit Auto Volume Fraction (Bld) 31.8 % Low 40.7-50.3 [facility] Comment on above: Performed By: #### E RTPF, CONNER, LIP, LIVP, TEGCR ####[address] [address] Hemoglobin mass conc (Bld) 10.1 g/dL Low 13.0-17.0 [facility] Comment on above: Performed By: #### E RTPF, CONNER, LIP, LIVP, TEGCR ####[address] [address] MCH Auto Entitic mass (RBC) 30.5 pg Normal 25.2-33.5 [facility] Comment on above: Performed By: #### E RTPF, CONNER, LIP, LIVP, TEGCR ####[address] [address] MCHC Auto mass conc (RBC) 31.8 g/dL Normal 28.4-34.8 [facility] Comment on above: Performed By: #### E RTPF, CONNER, LIP, LIVP, TEGCR ####[address] [address] MCV Auto Entitic volume (RBC) 96.1 fL Normal 82.6-102.9 [facility] Comment on above: Performed By: #### E RTPF, CONNER, LIP, LIVP, TEGCR ####[address] [address] NRBC Automated 0.1 per 100 WBC High 0.0 [facility] Comment on above: Performed By: #### E RTPF, CONNER, LIP, LIVP, TEGCR ####[address] [address] Platelet mean volume Auto Entitic volume (Bld) 11.0 fL Normal 8.1-13.5 [facility] Comment on above: Performed By: #### E RTPF, CONNER, LIP, LIVP, TEGCR ####[address] [address] Platelets Auto #/vol (Bld) 488 10*3/uL High 138-453 [facility] Comment on above: Performed By: #### E RTPF, CONNER, LIP, LIVP, TEGCR ####[address] [address] RBC Auto #/vol (Bld) 3.31 10*6/uL Low 4.21-5.77 [facility] Comment on above: Performed By: #### E RTPF, CONNER, LIP, LIVP, TEGCR ####[address] [address] WBC Auto #/vol (Bld) 24.1 10*3/uL High 3.5-11.3 [facility] Comment on above: Performed By: #### E RTPF, CONNER, LIP, LIVP, TEGCR ####[address] [address] Auto Diff Performed NOT REPORTED Normal [facility] Comment on above: Performed By: #### E RTPF, CONNER, LIP, LIVP, TEGCR ####[address] [address] Platelets Auto #/vol (Bld) NOT REPORTED Normal [facility] Comment on above: Performed By: #### E RTPF, CONNER, LIP, LIVP, TEGCR ####[address] [address] RBC morphology finding Nom (Bld) NOT REPORTED Normal [facility] Comment on above: Performed By: #### E RTPF, CONNER, LIP, LIVP, TEGCR ####[address] [address] WBC Morphology NOT REPORTED Normal [facility] Comment on above: Performed By: #### E RTPF, CONNER, LIP, LIVP, TEGCR ####[address] [address] Magnesiumon 01-27-2018 Magnesium mass conc 2.6 mg/dL Normal 1.6-2.6 [facility] Comment on above: Performed By: #### E RTPF, CONNER, LIP, LIVP, TEGCR ####[address] [address] Phosphorus, Inorg.on 018 Phosphorus, Inorg. 4.5 mg/dL Normal 2.5-4.5 [facility] Comment on above: Performed By: #### E RTPF, CONNER, LIP, LIVP, TEGCR ####[address] [address] Vancomycin,Randomon 01-28-20 18 Vancomycin 11.1 ug/mL Normal [facility] Comment on above: Result Comment: High er trough serum vancomycin concentrations of 15-20 ug/mL are recommended for complicated infections such as bacteremia, endocarditis, osteomyelitis, meningitis, and hospital acquired pneumonia. Performed By: #### E RTPF, CONNER, LIP, LIVP, TEGCR ####[address] [place] [address] Date last dose, NOT REPORTED Normal [facility] Comment on above: Performed By: #### E RTPF, CONNER, LIP, LIVP, TEGCR ####[address] [place] [address] Dose amount, NOT REPORTED Normal [facility] Comment on above: Performed By: #### E RTPF, CONNER, LIP, LIVP, TEGCR ####[address] [place] [address] Time last dose, NOT REPORTED Normal [facility] Comment on above: Performed By: #### E RTPF, CONNER, LIP, LIVP, TEGCR ####[address] [address] XR ABDOMEN (KUB) (SINGLE AP VIEW)on 01-27-2018 [...] by:NADEGE Gabrieligned by:Molly Moreno MD01/27/18inal result Normal [facility] XR ABDOMEN (KUB) (SINGLE AP VIEW) EXAMINATION:SINGLE [...] García, DOSigned by:Cecile García, DO01/27/18inal result Normal [facility] XR LUMBAR SPINE (2-3 VIEWS)o n 01-27-2018 [...] by:NADEGE Burksigned by:Fidel Marley MD01/27/18inal result Normal [facility] Basic Metabolic Profon 01-26 (cont.) Normal [facility] Comment on above: Result Comment: Aver age GFR for 50-59 years old: 93 mL/min/1.73sq mChronic Kidney Disease: <60 mL/min/1.73sq mKidney failure: <15 mL/min/1.73sq meGFR calculated using average adult body mass. Additional eGFR calculator available at:http://www.Yoke/multiple_crcl_2011.htm Performed By: #### E RTPF, CONNER, LIP, LIVP, TEGCR ####[facility] [address] [place] [address] Anion gap 3 molar conc 13 mmol/L Normal 9-17 [facility] Comment on above: Performed By: #### E RTPF, CONNER, LIP, LIVP, TEGCR ####[facility] [address] [place] [address] Calcium mass conc 8.3 mg/dL Low 8.6-10.4 [facility] Comment on above: Performed By: #### E RTPF, CONNER, LIP, LIVP, TEGCR ####[facility] [address] [place] [address] Chloride molar conc 95 mmol/L Low 98-107 [facility] Comment on above: Performed By: #### E RTPF, CONNER, LIP, LIVP, TEGCR ####[facility] [address] [place] [address] CO2 molar conc 31 mmol/L Normal 20-31 [facility] Comment on above: Performed By: #### E RTPF, CONNER, LIP, LIVP, TEGCR ####[address] [place] [address] Creatinine mass conc 1.14 mg/dL Normal 0.70-1.[address] [facility] Comment on above: Performed By: #### E RTPF, CONNER, LIP, LIVP, TEGCR ####[address] [place] [address] GFR, Amer >60 Normal >60 [facility] Comment on above: Performed By: #### E RTPF, CONNER, LIP, LIVP, TEGCR ####[address] [address] GFR,non Amer >60 Normal >[address] [facility] Comment on above: Performed By: #### E RTPF, CONNER, LIP, LIVP, TEGCR ####[address] [address] Glucose mass conc 128 mg/dL High 70-99 [facility] Comment on above: Performed By: #### E RTPF, CONNER, LIP, LIVP, TEGCR ####[address] [address] Potassium molar conc 3.2 mmol/L Low 3.7-5.[address] [facility] Comment on above: Performed By: #### E RTPF, CONNER, LIP, LIVP, TEGCR ####[address] [address] Sodium molar conc 139 mmol/L Normal 135-144 [facility] Comment on above: Performed By: #### E RTPF, CONNER, LIP, LIVP, TEGCR ####[address] [place] [address] Urea nitrogen mass conc 21 mg/dL High 6-20 [facility] Comment on above: Performed By: #### E RTPF, CONNER, LIP, LIVP, TEGCR ####[facility] [address] [place] [address] BUN/CRE Ratio NOT REPORTED Normal -20 [facility] Comment on above: Performed By: #### E RTPF, CONNER, LIP, LIVP, TEGCR ####[address] [place] [address] Staging: NOT REPORTED Normal [facility] Comment on above: Performed By: #### E RTPF, CONNER, LIP, LIVP, TEGCR ####[address] [address] Brain Natri. Peptideon 01-26 Natriuretic peptide B mass conc (Bld) 2216 pg/mL High <300 [facility] Comment on above: Result Comment: Pro- BNP results cannot be compared to BNP results. Performed By: #### E RTPF, CONNER, LIP, LIVP, TEGCR ####[address] [address] Natriuretic peptide B mass conc (Bld) Normal [facility] Comment on above: Result Comment: Pro- BNP Reference Range:Rule Out: <300[place]: Age <50 300-450 Age 50-75 300-900 Age >75 300-1800Usually represents mild to moderate HF but other cardiopulmonary causes cannot be ruled out.Rule In: Age <50 >450 Age 50-75 >900 Age >75 >1800 Performed By: #### E RTPF, CONNER, LIP, LIVP, TEGCR ####[address] [place] [address] CBC with Diffon 01-26-2018 Abs. Basophil 0.00 k/uL Normal 0.0-0.2 [facility] Comment on above: Performed By: #### E RTPF, CONNER, LIP, LIVP, TEGCR ####[address] [place] [address] Abs.Imm.Granulocyte 0.00 k/uL Normal 0.00-0.30 [facility] Comment on above: Performed By: #### E RTPF, CONNER, LIP, LIVP, TEGCR ####[place] [address] Abs.Neutrophil (Seg) 21.60 k/uL High 1.8-7.[address] [facility] Comment on above: Performed By: #### E RTPF, CONNER, LIP, LIVP, TEGCR ####[place] [address] Basophils/100 WBC Auto (Bld) 0 % Normal 0-2 [facility] Comment on above: Performed By: #### E RTPF, CONNER, LIP, LIVP, TEGCR ####[place] [address] Eosinophils Auto #/vol (Bld) 0.00 10*3/uL Normal 0.0-0.4 [facility] Comment on above: Performed By: #### E RTPF, CONNER, LIP, LIVP, TEGCR ####[place] [address] Eosinophils/100 WBC Auto (Bld) 0 % Low 1-4 [facility] Comment on above: Performed By: #### E RTPF, CONNER, LIP, LIVP, TEGCR ####[address] [address] Immature granulocytes #/vol (Bld) 0 % Normal 0 [facility] Comment on above: Performed By: #### E RTPF, CONNER, LIP, LIVP, TEGCR ####[address] [address] Lymphocytes Auto #/vol (Bld) 3.17 10*3/uL Normal 1.0-4.8 [facility] Comment on above: Performed By: #### E RTPF, CONNER, LIP, LIVP, TEGCR ####[address] [address] Lymphocytes/100 WBC Auto (Bld) 11 % Low 24-44 [facility] Comment on above: Performed By: #### E RTPF, CONNER, LIP, LIVP, TEGCR ####[address] [address] Monocytes Auto #/vol (Bld) 4.03 10*3/uL High 0.1-0.8 [facility] Comment on above: Performed By: #### E RTPF, CONNER, LIP, LIVP, TEGCR ####[address] [address] Monocytes/100 WBC Auto (Bld) 14 % High 1-7 [facility] Comment on above: Performed By: #### E RTPF, CNONER, LIP, LIVP, TEGCR ####[address] [address] Morphology Interp Eduard (Bld) ANISOCYTOSIS PRESENT Normal [facility] Comment on above: Result Comment: INCR EASED BANDS PRESENTTOXIC GRANULATION PRESENT Performed By: #### E RTPF, CONNER, LIP, LIVP, TEGCR ####[address] [address] Neutrophil (Seg) 75 % High 36-66 [facility] Comment on above: Performed By: #### E RTPF, CONNER, LIP, LIVP, TEGCR ####[address] [address] Erythrocyte distribution width Auto Ratio (RBC) 16.2 % High 11.8-14.4 [facility] Comment on above: Result Comment: ADDE D ON Performed By: #### E RTPF, CONNER, LIP, LIVP, TEGCR ####[address] [address] Hematocrit Auto Volume Fraction (Bld) 31.2 % Low 40.7-50.3 [facility] Comment on above: Result Comment: ADDE D ON Performed By: #### E RTPF, CONNER, LIP, LIVP, TEGCR ####[address] [address] Hemoglobin mass conc (Bld) 10.1 g/dL Low 13.0-17.0 [facility] Comment on above: Result Comment: ADDE D ON Performed By: #### E RTPF, CONNER, LIP, LIVP, TEGCR ####[address] [address] MCH Auto Entitic mass (RBC) 30.9 pg Normal 25.2-33.5 [facility] Comment on above: Result Comment: ADDE D ON Performed By: #### E RTPF, CONNER, LIP, LIVP, TEGCR ####[address] [address] MCHC Auto mass conc (RBC) 32.4 g/dL Normal 28.4-34.8 [facility] Comment on above: Result Comment: ADDE D ON Performed By: #### E RTPF, CONNER, LIP, LIVP, TEGCR ####[address] [address] MCV Auto Entitic volume (RBC) 95.4 fL Normal 82.6-102.9 [facility] Comment on above: Result Comment: ADDE D ON Performed By: #### E RTPF, CONNER, LIP, LIVP, TEGCR ####[address] [address] NRBC Automated 0.1 per 100 WBC High 0.0 [facility] Comment on above: Result Comment: ADDE D ON Performed By: #### E RTPF, CONNER, LIP, LIVP, TEGCR ####[address] [address] Platelet mean volume Auto Entitic volume (Bld) 11.4 fL Normal 8.1-13.5 [facility] Comment on above: Result Comment: SOTO Lynne ON Performed By: #### E RTPF, CONNER, LIP, LIVP, TEGCR ####[address] [address] Platelets Auto #/vol (Bld) 328 10*3/uL Normal 138-453 [facility] Comment on above: Result Comment: SOTO Lynne ON Performed By: #### E RTPF, CONNER, LIP, LIVP, TEGCR ####[address] [address] RBC Auto #/vol (Bld) 3.27 10*6/uL Low 4.21-5.77 [facility] Comment on above: Result Comment: SOTO Lynne ON Performed By: #### E RTPF, CONNER, LIP, LIVP, TEGCR ####[address] [address] WBC Auto #/vol (Bld) 28.8 10*3/uL High 3.5-11.3 [facility] Comment on above: Result Comment: SOTO Lynne ON Performed By: #### E RTPF, CONNER, LIP, LIVP, TEGCR ####[address] [address] Auto Diff Performed NOT REPORTED Normal [facility] Comment on above: Performed By: #### E RTPF, CONNER, LIP, LIVP, TEGCR ####[address] [address] Platelets Auto #/vol (Bld) NOT REPORTED Normal [facility] Comment on above: Performed By: #### E RTPF, CONNER, LIP, LIVP, TEGCR ####[address] [address] RBC morphology finding Nom (Bld) NOT REPORTED Normal [facility] Comment on above: Performed By: #### E RTPF, CONNER, LIP, LIVP, TEGCR ####[address] [address] WBC Morphology NOT REPORTED Normal [facility] Comment on above: Performed By: #### E RTPF, CONNER, LIP, LIVP, TEGCR ####[address] [address] Calcium, Ionicon 01-26-2018 Calcium mass conc 1.22 mmol/L Normal 1.13-1.33 [facility] Comment on above: Performed By: #### E RTPF, CONNER, LIP, LIVP, TEGCR ####[address] [address] Calcium mass conc 1.04 mmol/L Low 1.13-1.33 [facility] Comment on above: Performed By: #### E RTPF, CONNER, LIP, LIVP, TEGCR ####[address] [address] K (Potassium)on 01-26-2018 Potassium molar conc 3.7 mmol/L Normal 3.7-5.[address] [facility] Comment on above: Performed By: #### E RTPF, CONNER, LIP, LIVP, TEGCR ####[address] [address] Potassium molar conc 3.2 mmol/L Low 3.7-5.[address] [facility] Comment on above: Performed By: #### E RTPF, CONNER, LIP, LIVP, TEGCR ####[address] [address] Potassium molar conc 3.3 mmol/L Low 3.7-5.[address] [facility] Comment on above: Performed By: #### E RTPF, CONNER, LIP, LIVP, TEGCR ####[address] [address] Magnesiumon 01-26-2018 Magnesium mass conc 2.2 mg/dL Normal 1.6-2.6 [facility] Comment on above: Performed By: #### E RTPF, CONNER, LIP, LIVP, TEGCR ####[address] [address] Phosphorus, Inorg.on 018 Phosphorus, Inorg. 3.8 mg/dL Normal 2.5-4.5 [facility] Comment on above: Performed By: #### E RTPF, CONNER, LIP, LIVP, TEGCR ####[address] [address] Vancomycin Troughon 01-27-20 18 Vancomycin Trough 25.3 ug/mL Critically high 10.0-20.0 [facility] Comment on above: Result Comment: High er trough serum vancomycin concentrations of 15-20 ug/mL are recommended for complicated infections such as bacteremia, endocarditis, osteomyelitis, meningitis, and hospital acquired pneumonia.ADDED ON Performed By: #### E RTPF, CONNER, LIP, LIVP, TEGCR ####[address] [address] Date last dose, .BLOOD Normal [facility] Comment on above: Performed By: #### E RTPF, CONNER, LIP, LIVP, TEGCR ####[address] [address] Dose amount, .BLOOD Normal [facility] Comment on above: Performed By: #### E RTPF, CONNER, LIP, LIVP, TEGCR ####[address] [place] [address] Time last dose, .BLOOD Normal [facility] Comment on above: Performed By: #### E CONNER CALDERON LIP, LIVP, TEGCR ####[address] [place] [address] XR ABDOMEN (KUB) (SINGLE AP VIEW)on 01-26-2018 [...] by:NADEGE Burksigned by:Fidel Marley MD01/26/18Final result Normal [facility] XR CHEST PORTABLEon 01-27-20 18 XR CHEST PORTABLE EXAMINATION:SINGLE X RAY VIEW OF THE CHEST01/26/2018 5:46 amCOMPARISON:01/25/2018HISTOR Y:ORDERING SYSTEM PROVIDED HISTORY: comparisonTECHNOLOGIST PROVIDED HISTORY:comparisonFINDINGS:Mi ld cardiomegaly. Increased pulmonary vascular congestion and interstitialedema. Increasing although small bilateral pleural effusions. Nopneumothorax. Basilar atelectasis. No focal consolidation.IMPRESSION: Increasing pulmonary edema and pleural effusions.Interpreted by:NADEGE Wootenigned by:Gabino Suero MD01/26/18Final result Normal [facility] Basic Metabolic Profon 01-25 Creatinine mass conc 0.72 mg/dL Normal 0.70-1.[address] [facility] Comment on above: Result Comment: ICTE LOUIE SPECIMEN Performed By: #### E RTASYA, HAMIDA PRIETO, LIVP, TEGCR ####[facility] [address] [place] [address] GFR, Amer >60 Normal >60 [facility] Comment on above: Performed By: #### E RTPF, CONNER, LIP, LIVP, TEGCR ####[address] [place] [address] GFR,non Amer >60 Normal >[address] [facility] Comment on above: Performed By: #### E RTPF, CONNER, LIP, LIVP, TEGCR ####[address] [address] (cont.) Normal [facility] Comment on above: Result Comment: Aver age GFR for 50-59 years old: 93 mL/min/1.73sq mChronic Kidney Disease: <60 mL/min/1.73sq mKidney failure: <15 mL/min/1.73sq meGFR calculated using average adult body mass. Additional eGFR calculator available at:http://www.[employer]/multiple_crcl_2012.htm Performed By: #### E RTPF, CONNER, LIP, LIVP, TEGCR ####[address] [place] [address] Anion gap 3 molar conc 14 mmol/L Normal 9-17 [facility] Comment on above: Performed By: #### E RTPF, CONNER, LIP, LIVP, TEGCR ####[address] [place] [address] Calcium mass conc 8.6 mg/dL Normal 8.6-10.4 [facility] Comment on above: Performed By: #### E RTPF, CONNER, LIP, LIVP, TEGCR ####[facility] [place] [address] Chloride molar conc 97 mmol/L Low 98-107 [facility] Comment on above: Performed By: #### E RTPF, CONNER, LIP, LIVP, TEGCR ####[facility] [address] [place] [address] CO2 molar conc 24 mmol/L Normal 20-31 [facility] Comment on above: Performed By: #### E RTPF, CONNER, LIP, LIVP, TEGCR ####[address] [place] [address] Glucose mass conc 113 mg/dL High 70-99 [facility] Comment on above: Performed By: #### E RTPF, CONNER, LIP, LIVP, TEGCR ####[address] [address] Potassium molar conc 3.3 mmol/L Low 3.7-5.[address] [facility] Comment on above: Performed By: #### E RTPF, CONNER, LIP, LIVP, TEGCR ####[address] [place] [address] Sodium molar conc 135 mmol/L Normal 135-144 [facility] Comment on above: Performed By: #### E RTPF, CONNER, LIP, LIVP, TEGCR ####[facility] [place] [address] Urea nitrogen mass conc 14 mg/dL Normal 6-20 [facility] Comment on above: Performed By: #### E RTPF, CONNER, LIP, LIVP, TEGCR ####[facility] [place] [address] BUN/CRE Ratio NOT REPORTED Normal 9-20 [facility] Comment on above: Performed By: #### E RTPF, CONNER, LIP, LIVP, TEGCR ####[facility] [place] [address] Staging: NOT REPORTED Normal [facility] Comment on above: Performed By: #### E RTPF, CONNER, LIP, LIVP, TEGCR ####[place] [address] CBC with Diffon 01-25-2018 Abs. Basophil 0.00 k/uL Normal 0.0-0.2 [facility] Comment on above: Performed By: #### E RTPF, CONNER, LIP, LIVP, TEGCR ####[place] [address] Abs.Imm.Granulocyte 1.00 k/uL High 0.00-0.30 [facility] Comment on above: Performed By: #### E RTPF, CONNER, LIP, LIVP, TEGCR ####[address] [address] Abs.Neutrophil (Seg) 15.00 k/uL High 1.8-7.[address] [facility] Comment on above: Performed By: #### E RTPF, CONNER, LIP, LIVP, TEGCR ####[address] [address] Basophils/100 WBC Auto (Bld) 0 % Normal 0-2 [facility] Comment on above: Performed By: #### E RTPF, CONNER, LIP, LIVP, TEGCR ####[address] [address] Eosinophils Auto #/vol (Bld) 0.20 10*3/uL Normal 0.0-0.4 [facility] Comment on above: Performed By: #### E RTPF, CONNER, LIP, LIVP, TEGCR ####[address] [address] Eosinophils/100 WBC Auto (Bld) 1 % Normal 1-4 [facility] Comment on above: Performed By: #### E RTPF, CONNER, LIP, LIVP, TEGCR ####[address] [address] Immature granulocytes #/vol (Bld) 5 % High 0 [facility] Comment on above: Performed By: #### E RTPF, CONNER, LIP, LIVP, TEGCR ####[address] [address] Lymphocytes Auto #/vol (Bld) 1.20 10*3/uL Normal 1.0-4.8 [facility] Comment on above: Performed By: #### E RTPF, CONNER, LIP, LIVP, TEGCR ####[address] [address] Lymphocytes/100 WBC Auto (Bld) 6 % Low 24-44 [facility] Comment on above: Performed By: #### E RTPF, CONNER, LIP, LIVP, TEGCR ####[address] [address] Monocytes Auto #/vol (Bld) 2.60 10*3/uL High 0.1-0.8 [facility] Comment on above: Performed By: #### E RTPF, CONNER, LIP, LIVP, TEGCR ####[address] [address] Monocytes/100 WBC Auto (Bld) 13 % High 1-7 [facility] Comment on above: Performed By: #### E RTPF, CONNER, LIP, LIVP, TEGCR ####[address] [address] Morphology Interp Eduard (Bld) INCREASED BANDS PRESENT Normal [facility] Comment on above: Result Comment: ANIS OCYTOSIS PRESENTTOXIC GRANULATION PRESENT Performed By: #### E RTPF, CONNER, LIP, LIVP, TEGCR ####[address] [address] Neutrophil (Seg) 75 % High 36-66 [facility] Comment on above: Performed By: #### E RTPF, CONNER, LIP, LIVP, TEGCR ####[address] [address] NRBC Automated 0.1 per 100 WBC High 0.0 [facility] Comment on above: Performed By: #### E RTPF, CONNER, LIP, LIVP, TEGCR ####[address] [address] Platelet mean volume Auto Entitic volume (Bld) 11.5 fL Normal 8.1-13.5 [facility] Comment on above: Performed By: #### E RTPF, CONNER, LIP, LIVP, TEGCR ####[address] [address] Platelets Auto #/vol (Bld) 216 10*3/uL Normal 138-453 [facility] Comment on above: Performed By: #### E RTPF, CONNER, LIP, LIVP, TEGCR ####[address] [address] WBC Auto #/vol (Bld) 20.0 10*3/uL High 3.5-11.3 [facility] Comment on above: Performed By: #### E RTPF, CONNER, LIP, LIVP, TEGCR ####[address] [place] [address] Erythrocyte distribution width Auto Ratio (RBC) 15.7 % High 11.8-14.4 [facility] Comment on above: Performed By: #### E RTPF, CONNER, LIP, LIVP, TEGCR ####[address] [place] [address] Hematocrit Auto Volume Fraction (Bld) 33.8 % Low 40.7-50.3 [facility] Comment on above: Performed By: #### E RTPF, CONNER, LIP, LIVP, TEGCR ####[address] [address] Hemoglobin mass conc (Bld) 11.3 g/dL Low 13.0-17.0 [facility] Comment on above: Performed By: #### E RTPF, CONNER, LIP, LIVP, TEGCR ####[address] [address] MCH Auto Entitic mass (RBC) 30.9 pg Normal 25.2-33.5 [facility] Comment on above: Performed By: #### E RTPF, CONNER, LIP, LIVP, TEGCR ####[address] [address] MCHC Auto mass conc (RBC) 33.4 g/dL Normal 28.4-34.8 [facility] Comment on above: Performed By: #### E RTPF, CONNER, LIP, LIVP, TEGCR ####[address] [address] MCV Auto Entitic volume (RBC) 92.3 fL Normal 82.6-102.9 [facility] Comment on above: Performed By: #### E RTPF, CONNER, LIP, LIVP, TEGCR ####[address] [address] RBC Auto #/vol (Bld) 3.66 10*6/uL Low 4.21-5.77 [facility] Comment on above: Performed By: #### E RTPF, CONNER, LIP, LIVP, TEGCR ####[address] [address] Auto Diff Performed NOT REPORTED Normal [facility] Comment on above: Performed By: #### E RTPF, CONNER, LIP, LIVP, TEGCR ####[facility] [address] [place] [address] Platelets Auto #/vol (Bld) NOT REPORTED Normal [facility] Comment on above: Performed By: #### E RTPF, CONNER, LIP, LIVP, TEGCR ####[address] [place] [address] RBC morphology finding Nom (Bld) NOT REPORTED Normal [facility] Comment on above: Performed By: #### E RTPF, CONNER, LIP, LIVP, TEGCR ####[address] [place] [address] WBC Morphology NOT REPORTED Normal [facility] Comment on above: Performed By: #### E RTPF, CONNER, LIP, LIVP, TEGCR ####[address] [address] [address] ABDOMEN PELVIS W IV CONTR Ольга [...] by:NADEGE Dormanigned by:Hudson Anaya MD01/25/inal result Normal [facility] Calcium, Ionicon 01-25-2018 Calcium mass conc 1.09 mmol/L Low 1.13-1.33 [facility] Comment on above: Performed By: #### O HP, IOCAL ####[facility] [address] [place] [address] K (Potassium)on 01-25-2018 Potassium molar conc 3.4 mmol/L Low 3.7-5.[address] [facility] Comment on above: Performed By: #### E RTPF, CONNER, LIP, LIVP, TEGCR ####[facility] [address] [place] [address] Potassium molar conc 3.3 mmol/L Low 3.7-5.[address] [facility] Comment on above: Performed By: #### O HP, IOCAL ####[facility] [address] [place] [address] Magnesiumon 01-25-2018 Magnesium mass conc 2.1 mg/dL Normal 1.6-2.6 [facility] Comment on above: Performed By: #### E RTPF, CONNER, LIP, LIVP, TEGCR ####[facility] [address] [place] [address] Phosphorus, Inorg.on 09-24-2 018 Phosphorus, Inorg. 3.0 mg/dL Normal 2.5-4.5 [facility] Comment on above: Performed By: #### E RTPF, CONNER, LIP, LIVP, TEGCR ####[address] [address] Vancomycin Troughon 01-26-20 18 Vancomycin Trough 19.2 ug/mL Normal 10.0-20.0 [facility] Comment on above: Result Comment: High er trough serum vancomycin concentrations of 15-20 ug/mL are recommended for complicated infections such as bacteremia, endocarditis, osteomyelitis, meningitis, and hospital acquired pneumonia. Performed By: #### E RTPF, CONNER, LIP, LIVP, TEGCR ####[address] [address] Date last dose, NOT REPORTED Normal [facility] Comment on above: Performed By: #### E RTPF, CONNER, LIP, LIVP, TEGCR ####[facility] [address] [place] [address] Dose amount, NOT REPORTED Normal [facility] Comment on above: Performed By: #### E RTPF, CONNER, LIP, LIVP, TEGCR ####[address] [address] Time last dose, NOT REPORTED Normal [facility] Comment on above: Performed By: #### E RTPF, CONNER, LIP, LIVP, TEGCR ####[facility] [address] [place] [address] XR CHEST PORTABLEon 01-26-20 18 XR CHEST PORTABLE EXAMINATION:SINGLE X RAY VIEW OF THE CHEST01/25/2018 10:00 amCOMPARISON:January 24, 2018HISTORY:ORDERING SYSTEM PROVIDED HISTORY: comparisonTECHNOLOGIST PROVIDED HISTORY:comparisonFINDINGS:En teric tube extends beyond the gastroesophageal junction.Slightly improved bilateral lung opacities.Cardiomegaly. Mild pulmonary edema.IMPRESSION: Slightly improved bilateral lung opacities. Likely decreased pleuraleffusions and atelectasis.Enteric tube extends beyond the gastroesophageal junction.Interpreted by:NADEGE Escalanteigned by:Cassie Torres MD01/25/18inal result Normal [facility] Basic Metabolic Profon 01-24 Potassium molar conc 2.9 mmol/L Critically low 3.7-5.3 [facility] Comment on above: Performed By: #### O HP, IOCAL ####[facility] [address] [place] [address] (cont.) Normal [facility] Comment on above: Result Comment: Aver age GFR for 50-59 years old: 93 mL/min/1.73sq mChronic Kidney Disease: <60 mL/min/1.73sq mKidney failure: <15 mL/min/1.73sq meGFR calculated using average adult body mass. Additional eGFR calculator available at:http://www.[employer]/multiple_crcl_2012.htm Performed By: #### O HP, IOCAL ####[facility] [address] [place] [address] Anion gap 3 molar conc 9 mmol/L Normal 9-17 [facility] Comment on above: Performed By: #### O HP, IOCAL ####[address] [place] [address] Calcium mass conc 8.1 mg/dL Low 8.6-10.4 [facility] Comment on above: Performed By: #### O HP, IOCAL ####[address] [place] [address] Chloride molar conc 95 mmol/L Low 98-107 [facility] Comment on above: Performed By: #### O HP, IOCAL ####[address] [place] [address] CO2 molar conc 29 mmol/L Normal 20-31 [facility] Comment on above: Performed By: #### O HP, IOCAL ####[facility] [address] [place] [address] Creatinine mass conc 0.55 mg/dL Low 0.70-1.[address] [facility] Comment on above: Performed By: #### O HP, IOCAL ####[facility] [address] [place] [address] GFR, Amer >60 Normal >60 [facility] Comment on above: Performed By: #### O HP, IOCAL ####[facility] [address] [place] [address] GFR,non Amer >60 Normal >[address] [facility] Comment on above: Performed By: #### O HP, IOCAL ####[facility] [address] [place] [address] Glucose mass conc 130 mg/dL High 70-99 [facility] Comment on above: Performed By: #### O HP, IOCAL ####[facility] [address] [place] [address] Sodium molar conc 133 mmol/L Low 135-144 [facility] Comment on above: Performed By: #### O HP, IOCAL ####[facility] [address] [place] [address] Urea nitrogen mass conc 12 mg/dL Normal 6-20 [facility] Comment on above: Performed By: #### O HP, IOCAL ####[facility] [address] [place] [address] BUN/CRE Ratio NOT REPORTED Normal 9-20 [facility] Comment on above: Performed By: #### O HP, IOCAL ####[facility] [address] [place] [address] Staging: NOT REPORTED Normal [facility] Comment on above: Performed By: #### O HP, IOCAL ####[facility] [address] [place] [address] CBCon 01-24-2018 Erythrocyte distribution width Auto Ratio (RBC) 15.8 % High 11.8-14.4 [facility] Comment on above: Performed By: #### O HP, IOCAL ####[address] [address] Hematocrit Auto Volume Fraction (Bld) 30.8 % Low 40.7-50.3 [facility] Comment on above: Performed By: #### O HP, IOCAL ####[facility] [address] [place] [address] Hemoglobin mass conc (Bld) 10.2 g/dL Low 13.0-17.0 [facility] Comment on above: Performed By: #### O HP, IOCAL ####[address] [address] MCH Auto Entitic mass (RBC) 30.4 pg Normal 25.2-33.5 [facility] Comment on above: Performed By: #### O HP, IOCAL ####[facility] [address] [place] [address] MCHC Auto mass conc (RBC) 33.1 g/dL Normal 28.4-34.8 [facility] Comment on above: Performed By: #### O HP, IOCAL ####[facility] [address] [place] [address] MCV Auto Entitic volume (RBC) 91.9 fL Normal 82.6-102.9 [facility] Comment on above: Performed By: #### O HP, IOCAL ####[facility] [address] [place] [address] NRBC Automated 0.0 per 100 WBC Normal 0.0 [facility] Comment on above: Performed By: #### O HP, IOCAL ####[facility] [address] [place] [address] Platelet mean volume Auto Entitic volume (Bld) 11.5 fL Normal 8.1-13.5 [facility] Comment on above: Performed By: #### O HP, IOCAL ####[facility] [address] [place] [address] Platelets Auto #/vol (Bld) 156 10*3/uL Normal 138-453 [facility] Comment on above: Performed By: #### O HP, IOCAL ####[facility] [address] [place] [address] RBC Auto #/vol (Bld) 3.35 10*6/uL Low 4.21-5.77 [facility] Comment on above: Performed By: #### O HP, IOCAL ####[facility] [address] [place] [address] WBC Auto #/vol (Bld) 15.6 10*3/uL High 3.5-11.3 [facility] Comment on above: Performed By: #### O HP, IOCAL ####[facility] [address] [place] [address] Calcium, Ionicon 01-24-2018 Calcium mass conc 1.06 mmol/L Low 1.13-1.33 [facility] Comment on above: Performed By: #### O HP, IOCAL ####[facility] [address] [place] [address] K (Potassium)on 01-24-2018 Potassium molar conc 3.0 mmol/L Low 3.7-5.[address] [facility] Comment on above: Performed By: #### O HP, IOCAL ####[facility] [address] [place] [address] Potassium molar conc 3.0 mmol/L Low 3.7-5.[address] [facility] Comment on above: Performed By: #### O HP, IOCAL ####[address] [place] [address] Magnesiumon 01-24-2018 Magnesium mass conc 1.9 mg/dL Normal 1.6-2.6 [facility] Comment on above: Performed By: #### O HP, IOCAL ####[facility] [address] [place] [address] Phosphorus, Inorg.on 018 Phosphorus, Inorg. 2.3 mg/dL Low 2.5-4.5 [facility] Comment on above: Performed By: #### O HP, IOCAL ####[facility] [address] [place] [address] Vancomycin Troughon 01-25-20 18 Vancomycin Trough 8.8 ug/mL Low 10.0-20.0 [facility] Comment on above: Result Comment: High er trough serum vancomycin concentrations of 15-20 ug/mL are recommended for complicated infections such as bacteremia, endocarditis, osteomyelitis, meningitis, and hospital acquired pneumonia. Performed By: #### O HP, IOCAL ####[address] [place] [address] Date last dose, NOT REPORTED Normal [facility] Comment on above: Performed By: #### O HP, IOCAL ####[address] [place] [address] Dose amount, NOT REPORTED Normal [facility] Comment on above: Performed By: #### O HP, IOCAL ####[address] [place] [address] Time last dose, NOT REPORTED Normal [facility] Comment on above: Performed By: #### O HP, IOCAL ####[address] [place] [address] XR CHEST PORTABLEon 01-25-20 18 XR CHEST [...] by:NADEGE Wrightigned by:Cassie Guzmán MD01/24/18inal result Normal [facility] Basic Metabolic Profon 01-23 Creatinine mass conc 0.47 mg/dL Low 0.70-1.[address] [facility] Comment on above: Result Comment: ICTE LOUIE SPECIMEN Performed By: #### O HP, IOCAL ####[facility]vd[facility]rxcncpi[address] [place] [address] GFR, Amer >60 Normal >60 [facility] Comment on above: Performed By: #### O HP, IOCAL ####[facility] [address] [place] [address] GFR,non Amer >60 Normal >[address] [facility] Comment on above: Performed By: #### O HP, IOCAL ####[facility] [address] [place] [address] (cont.) Normal [facility] Comment on above: Result Comment: Aver age GFR for 50-59 years old: 93 mL/min/1.73sq mChronic Kidney Disease: <60 mL/min/1.73sq mKidney failure: <15 mL/min/1.73sq meGFR calculated using average adult body mass. Additional eGFR calculator available at:http://www.Yoke/multiple_crcl_2012.htm Performed By: #### O HP, IOCAL ####Retre[facility] Zgyiznxvugda5269 [place] [address] Anion gap 3 molar conc 11 mmol/L Normal 9-17 [facility] Comment on above: Performed By: #### O HP, IOCAL ####[facility] Mghdlgovhhzi1748 [place] [address] Calcium mass conc 8.3 mg/dL Low 8.6-10.4 [facility] Comment on above: Performed By: #### O HP, IOCAL ####[facility] Virknembpqkt1141 [place] [address] Chloride molar conc 98 mmol/L Normal 98-107 [facility] Comment on above: Performed By: #### O HP, IOCAL ####Retre[facility] Lnjxrmkqhfde8407 [place] [address] CO2 molar conc 25 mmol/L Normal 20-31 [facility] Comment on above: Performed By: #### O HP, IOCAL ####Retre[facility] Raehlnvymlhd8178 [place] [address] Glucose mass conc 107 mg/dL High 70-99 [facility] Comment on above: Performed By: #### O HP, IOCAL ####[facility] Opbldlvxddqz6685 [place] [address] Potassium molar conc 3.2 mmol/L Low 3.7-5.[address] [facility] Comment on above: Performed By: #### O HP, IOCAL ####Retre[facility] Cofgsiwntijs2611 [place] [address] Sodium molar conc 134 mmol/L Low 135-144 [facility] Comment on above: Performed By: #### O HP, IOCAL ####Filomena Uhonipllclrc7727 [place] [address] Urea nitrogen mass conc 9 mg/dL Normal -20 [facility] Comment on above: Performed By: #### O HP, IOCAL ####[facility] HospitalWhiphandVfjnluvtajhw7550 [place] [address] BUN/CRE Ratio NOT REPORTED Normal -20 [facility] Comment on above: Performed By: #### O HP, IOCAL ####[facility] Dkxknpyvivpv7711 [place] [address] Staging: NOT REPORTED Normal [facility] Comment on above: Performed By: #### O HP, IOCAL ####[facility] [address] [place] [address] Brain Natri. Peptideon 01-23 Natriuretic peptide B mass conc (Bld) Normal [facility] Comment on above: Result Comment: Pro- BNP Reference Range:Rule Out: <300Grey Zone: Age <50 300-450 Age 50-75 300-900 Age >75 300-1800Usually represents mild to moderate HF but other cardiopulmonary causes cannot be ruled out.Rule In: Age <50 >450 Age 50-75 >900 Age >75 >1800 Performed By: #### O HP, IOCAL ####Filomean Cyyjlgyadrla1186 [place] [address] Natriuretic peptide B mass conc (Bld) 93968 pg/mL High <300 [facility] Comment on above: Result Comment: Pro- BNP results cannot be compared to BNP results. Performed By: #### O HP, IOCAL ####[facility] HospitalWhiphandJyhrmsvemgjh3595 [place] [address] CBCon 01-23-2018 Erythrocyte distribution width Auto Ratio (RBC) 15.6 % High 11.8-14.4 [facility] Comment on above: Performed By: #### O HP, IOCAL ####[facility] Qeibjlachdsv9240 [place] [address] Hematocrit Auto Volume Fraction (Bld) 32.4 % Low 40.7-50.3 [facility] Comment on above: Performed By: #### O HP, IOCAL ####[facility] S[address]rlwvb[address] [place] [address] Hemoglobin mass conc (Bld) 11.1 g/dL Low 13.0-17.0 [facility] Comment on above: Performed By: #### O HP, IOCAL ####[address] [address] MCH Auto Entitic mass (RBC) 31.8 pg Normal 25.2-33.5 [facility] Comment on above: Performed By: #### O HP, IOCAL ####[address] [address] MCHC Auto mass conc (RBC) 34.3 g/dL Normal 28.4-34.8 [facility] Comment on above: Performed By: #### O HP, IOCAL ####[facility] [place] [address] MCV Auto Entitic volume (RBC) 92.8 fL Normal 82.6-102.9 [facility] Comment on above: Performed By: #### O HP, IOCAL ####[address] [address] NRBC Automated 0.0 per 100 WBC Normal 0.0 [facility] Comment on above: Performed By: #### O HP, IOCAL ####[facility] Tbsidpurzcos[address] [place] [address] Platelets Auto #/vol (Bld) See Reflexed IPF Result Normal 138-[address] [facility] Comment on above: Performed By: #### O HP, IOCAL ####[facility] Elvnayfjyuyl0028 [place] [address] RBC Auto #/vol (Bld) 3.49 10*6/uL Low 4.21-5.77 [facility] Comment on above: Performed By: #### O HP, IOCAL ####[facility] [place] [address] WBC Auto #/vol (Bld) 23.6 10*3/uL High 3.5-11.3 [facility] Comment on above: Performed By: #### O HP, IOCAL ####[facility] [place] [address] Platelet mean volume Auto Entitic volume (Bld) NOT REPORTED Normal 8.1-13.5 [facility] Comment on above: Performed By: #### O HP, IOCAL ####[address] [address] [address] LUMBAR SPINE WO CONTRASTo n 01-23-2018 [...] by:NADEGE Lancasterigned by:Hebert Best MD01/22/18inal result Normal [facility] CT THORACIC SPINE WO CONTRAS Ton 01-23-2018 [...] by:NADEGE Lancasterigned by:Hebert Best MD01/22/18inal result Normal [facility] Calcium, Ionicon 01-23-2018 Calcium mass conc 1.09 mmol/L Low 1.13-1.33 [facility] Comment on above: Performed By: #### O HP, IOCAL ####[facility] [address] [place] [address] Calcium mass conc 1.08 mmol/L Low 1.13-1.33 [facility] Comment on above: Performed By: #### O HP, IOCAL ####[facility] Nrxriksxicyb0992 [place] [address] Magnesiumon 01-23-2018 Magnesium mass conc 2.0 mg/dL Normal 1.6-2.6 [facility] Comment on above: Performed By: #### O HP, IOCAL ####[facility] Sazswwxcjtws7194 [place] [address] Magnesium mass conc 2.0 mg/dL Normal 1.6-2.6 [facility] Comment on above: Performed By: #### O HP, IOCAL ####[facility] Bxktlmqlivuv5929 [place] [address] PLT, Immature Fract.on 01-23 Platelet, Fluoresc. 134 k/uL Low 138-453 [facility] Comment on above: Performed By: #### O HP, IOCAL ####[facility] [address]ucgqlvco[address] [place] [address] PLT, Immature Fract. 6.9 % Normal 1.1-10.[address] [facility] Comment on above: Performed By: #### O HP, IOCAL ####Filomena Njfucrcmenvf3913 [place] [address] Vancomycin Troughon 01-24-20 18 Vancomycin Trough 13.6 ug/mL Normal 10.0-20.0 [facility] Comment on above: Result Comment: High er trough serum vancomycin concentrations of 15-20 ug/mL are recommended for complicated infections such as bacteremia, endocarditis, osteomyelitis, meningitis, and hospital acquired pneumonia. Performed By: #### O HP, IOCAL ####Filomena [address] [place] [address] Date last dose, NOT REPORTED Normal [facility] Comment on above: Performed By: #### O HP, IOCAL ####SarithaWhiphandGmsoyxuwbvwe[address] [place] [address] Dose amount, NOT REPORTED Normal [facility] Comment on above: Performed By: #### O HP, IOCAL ####SarithaWhiphandOemhbrspxnye5131 [place] [address] Time last dose, NOT REPORTED Normal [facility] Comment on above: Performed By: #### O HP, IOCAL ####[facility] [place] [place] [address] Vitamin D 25 OHon 01-23-2018 Vitamin D 25 [place] 10.5 ng/mL Low 30.0-100.0 [facility] Comment on above: Result Comment: Refe rence Range:Vitamin D status Range Deficiency <20 ng/mL Mild Deficiency 20-30 ng/mL Sufficiency 30-100 ng/mL Toxicity >100 ng/mL Performed By: #### O HP, IOCAL ####[facility] [address] [place] [address] XR CHEST PORTABLEon 01-24-20 18 XR CHEST [...] by:NADEGE Wrightigned by:Cassie Guzmán MD01/23/18inal result Normal [facility] Arterial Blood Gaseson 01-22 Josue Test INFORMATION NOT PROVIDED Normal [facility] Comment on above: Performed By: #### O HP, IOCAL ####[facility] Sqsgpgjvcjou0637 [place] [address] Body Temp. 37.0 Normal [facility] Comment on above: Performed By: #### O HP, IOCAL ####Retre[facility] Vnsfnmwqrlzt1171 [place] [address] Carboxy Hgb 2.7 % Normal 0-5 [facility] Comment on above: Result Comment: Refe rence Range:Non-Smokers 0-2%Average Smoker 2-4%Heavy Smoker <10% Performed By: #### O HP, IOCAL ####[facility] Remdehzcqxfa2267 [place] [address] FIO2 60% Normal [facility] Comment on above: Performed By: #### O HP, IOCAL ####[facility] Dmhnvsbrqyvf8926 [place] [address] HCO3 molar conc (Bld) 28.2 mmol/L High 22-27 [facility] Comment on above: Performed By: #### O HP, IOCAL ####[facility] [address] [place] [address] Oxygen ppres (BldA) 81.3 mm[Hg] Normal 75-[address] [facility] Comment on above: Performed By: #### O HP, IOCAL ####[facility] Pkpmntokejvs8915 [place] [address] Oxygen saturation in Blood 95.9 % Normal 94-100 [facility] Comment on above: Performed By: #### O HP, IOCAL ####[facility] [address] [place] [address] pCO2 41.5 mmHg Normal 32-45 [facility] Comment on above: Performed By: #### O HP, IOCAL ####[facility] Bikrqrgvcwjj2444 [place] [address] pH (Bld) 7.447 [pH] Normal 7.350-7.45 0 [facility] Comment on above: Performed By: #### O HP, IOCAL ####[facility] Grexntcsskhy9828 [place] [address] Positive Base Excess 4.2 mmol/L High 0.0-2.[address] [facility] Comment on above: Performed By: #### O HP, IOCAL ####[facility] Splrgoagzitj0835 [place] [address] Methemoglobin NOT REPORTED Normal 0.0-1.5 [facility] Comment on above: Performed By: #### O HP, IOCAL ####Filomena Rojas[address] [place] [address] Mode NOT REPORTED Normal [facility] Comment on above: Performed By: #### O HP, IOCAL ####Filomena [address] [place] [address] Negative Base Excess NOT REPORTED Normal 0.0-2.0 [facility] Comment on above: Performed By: #### O HP, IOCAL ####Filomena [address] [place] [address] Notification Time NOT REPORTED Normal [facility] Comment on above: Performed By: #### O HP, IOCAL ####[address] [address] Notification: NOT REPORTED Normal [facility] Comment on above: Performed By: #### O HP, IOCAL ####[address] [address] O2 Device/Flow/% NOT REPORTED Normal [facility] Comment on above: Performed By: #### O HP, IOCAL ####[address] [address] Oxyhemoglobin NOT REPORTED Normal 95.0-98.0 [facility] Comment on above: Performed By: #### O HP, IOCAL ####[address] [address] pCO2 Adj'd for Temp NOT REPORTED Normal 32-45 [facility] Comment on above: Performed By: #### O HP, IOCAL ####[address] [address] PEEP/CPAP NOT REPORTED Normal [facility] Comment on above: Performed By: #### O HP, IOCAL ####[address] [address] pH Adjst'd for Temp. NOT REPORTED Normal 7.350-7 .45 0 [facility] Comment on above: Performed By: #### O HP, IOCAL ####Filomena Gwybnsnynbkc5399 [place] [address] pO2 Adjst'd for Temp NOT REPORTED Normal 75-95 [facility] Comment on above: Performed By: #### O HP, IOCAL ####Filomena Myrrxtjkbimj2330 [place] [address] PSV NOT REPORTED Normal [facility] Comment on above: Performed By: #### O HP, IOCAL ####[facility] [address]xvsvjhys[address] [place] [address] Pt. Position NOT REPORTED Normal [facility] Comment on above: Performed By: #### O HP, IOCAL ####[facility] [address]ftbhtymyuyn[address] [place] [address] Set Rate NOT REPORTED Normal [facility] Comment on above: Performed By: #### O HP, IOCAL ####[facility] [address]oe[address] [place] [address] Site Drawn NOT REPORTED Normal [facility] Comment on above: Performed By: #### O HP, IOCAL ####[facility] Ehrtomfsddik9361 [place] [address] Text for Respiratory NOT REPORTED Normal [facility] Comment on above: Performed By: #### O HP, IOCAL ####[facility] Nenowvrxxjri2545 [place] [address] Total Hb NOT REPORTED Normal 12.0-16.0 [facility] Comment on above: Performed By: #### O HP, IOCAL ####[facility] Irihcnnvctyi9743 [place] [address] Total Rate NOT REPORTED Normal [facility] Comment on above: Performed By: #### O HP, IOCAL ####Filomena Zgdtlrepksgz6957 [place] [address] VT NOT REPORTED Normal [facility] Comment on above: Performed By: #### O HP, IOCAL ####Filomena Wbldxsaxlkva4465 [place] [address] Basic Metab w/rfx MGon 01-22 (cont.) Normal [facility] Comment on above: Result Comment: Aver age GFR for 50-59 years old: 93 mL/min/1.73sq mChronic Kidney Disease: <60 mL/min/1.73sq mKidney failure: <15 mL/min/1.73sq meGFR calculated using average adult body mass. Additional eGFR calculator available at:http://www.Yoke/multiple_crcl_2012.htm Performed By: #### O HP, IOCAL ####[facility] Kqflzgeemscx6710 [place] [address] Anion gap 3 molar conc 9 mmol/L Normal 9-17 [facility] Comment on above: Performed By: #### O HP, IOCAL ####[facility] Mmjsjusdgyxt4740 [place] [address] Calcium mass conc 8.0 mg/dL Low 8.6-10.4 [facility] Comment on above: Performed By: #### O HP, IOCAL ####Filomena Dycqyihkerak7210 [place] [address] Chloride molar conc 99 mmol/L Normal 98-107 [facility] Comment on above: Performed By: #### O HP, IOCAL ####[facility] Znbziwoxtngs4480 [place] [address] CO2 molar conc 28 mmol/L Normal 20-31 [facility] Comment on above: Performed By: #### O HP, IOCAL ####[facility] Qfamrrahuuek1980 [place] [address] Creatinine mass conc 0.56 mg/dL Low 0.70-1.[address] [facility] Comment on above: Performed By: #### O HP, IOCAL ####Sarithay Cdkfpjltcndw7224 [place] [address] GFR, Amer >60 Normal >60 [facility] Comment on above: Performed By: #### O HP, IOCAL ####Sarithay Cykixhwwbaab5364 [place] [address] GFR,non Amer >60 Normal >[address] [facility] Comment on above: Performed By: #### O HP, IOCAL ####[facility] Bxtmarvrnpce5633 [place] [address] Glucose mass conc 122 mg/dL High 70-99 [facility] Comment on above: Performed By: #### O HP, IOCAL ####[facility] Ebexkynxmnbu9238 [place] [address] Potassium molar conc 3.8 mmol/L Normal 3.7-5.[address] [facility] Comment on above: Performed By: #### O HP, IOCAL ####[facility] Zpwfmrbhdput1972 [place] [address] Sodium molar conc 136 mmol/L Normal 135-144 [facility] Comment on above: Performed By: #### O HP, IOCAL ####[facility] Iazjivxywoxo9892 [place] [address] Urea nitrogen mass conc 9 mg/dL Normal 6-20 [facility] Comment on above: Performed By: #### O HP, IOCAL ####[facility] Mkawmbbdvwca3311 [place] [address] BUN/CRE Ratio NOT REPORTED Normal 9-20 [facility] Comment on above: Performed By: #### O HP, IOCAL ####[facility] Xgtzbftesxrc5871 [place] [address] Staging: NOT REPORTED Normal [facility] Comment on above: Performed By: #### O HP, IOCAL ####Filomena Rstqomsfilti3713 [place] [address] Basic Metabolic Profon 01-22 (cont.) Normal [facility] Comment on above: Result Comment: Aver age GFR for 50-59 years old: 93 mL/min/1.73sq mChronic Kidney Disease: <60 mL/min/1.73sq mKidney failure: <15 mL/min/1.73sq meGFR calculated using average adult body mass. Additional eGFR calculator available at:http://www.Yoke/multiple_crcl_2012.htm Performed By: #### O HP, IOCAL ####[facility] Otjrjriqpquj6063 [place] [address] Anion gap 3 molar conc 11 mmol/L Normal 9-17 [facility] Comment on above: Performed By: #### O HP, IOCAL ####[facility] Mmnqjntmxdub7591 [place] [address] Calcium mass conc 8.1 mg/dL Low 8.6-10.4 [facility] Comment on above: Performed By: #### O HP, IOCAL ####[facility] Qzcgcqpelflw9725 [place] [address] Chloride molar conc 99 mmol/L Normal 98-107 [facility] Comment on above: Performed By: #### O HP, IOCAL ####[facility] Jrctpxuftdfy6633 [place] [address] CO2 molar conc 27 mmol/L Normal 20-31 [facility] Comment on above: Performed By: #### O HP, IOCAL ####[facility] Nbqmcjqhewwl3144 [place] [address] Creatinine mass conc 0.58 mg/dL Low 0.70-1.[address] [facility] Comment on above: Performed By: #### O HP, IOCAL ####[facility] Rwtzvxnxecuv0708 [place] [address] GFR, Amer >60 Normal >60 [facility] Comment on above: Performed By: #### O HP, IOCAL ####[facility] Xodbbuogteic5391 [place] [address] GFR,non Amer >60 Normal >[address] [facility] Comment on above: Performed By: #### O HP, IOCAL ####[facility] Abvumvkqrhfz9003 [place] [address] Glucose mass conc 87 mg/dL Normal 70-99 [facility] Comment on above: Performed By: #### O HP, IOCAL ####[facility] Yubaiiazjrtt1494 [place] [address] Potassium molar conc 3.6 mmol/L Low 3.7-5.[address] [facility] Comment on above: Performed By: #### O HP, IOCAL ####[facility] Thirfamhoddx0985 [place] [address] Sodium molar conc 137 mmol/L Normal 135-144 [facility] Comment on above: Performed By: #### O HP, IOCAL ####[facility] Vmpjmlaqfeps2985 [place] [address] Urea nitrogen mass conc 6 mg/dL Normal 6-20 [facility] Comment on above: Performed By: #### O HP, IOCAL ####[facility] Gcyhgwggxlqu0615 [place] [address] Brain Natri. Peptideon 01-22 Natriuretic peptide B mass conc (Bld) Normal [facility] Comment on above: Result Comment: Pro- BNP Reference Range:Rule Out: <300Grey Zone: Age <50 300-450 Age 50-75 300-900 Age >75 300-1800Usually represents mild to moderate HF but other cardiopulmonary causes cannot be ruled out.Rule In: Age <50 >450 Age 50-75 >900 Age >75 >1800 Performed By: #### O HP, IOCAL ####[facility] Kogtlmxjxhia2779 [place] [address] Natriuretic peptide B mass conc (Bld) 87497 pg/mL High <300 [facility] Comment on above: Result Comment: Pro- BNP results cannot be compared to BNP results. Performed By: #### O HP, IOCAL ####[facility] [address] [place] [address] CBCon 01-22-2018 Erythrocyte distribution width Auto Ratio (RBC) 15.8 % High 11.8-14.4 [facility] Comment on above: Performed By: #### O HP, IOCAL ####[address] [address] Hematocrit Auto Volume Fraction (Bld) 32.6 % Low 40.7-50.3 [facility] Comment on above: Performed By: #### O HP, IOCAL ####[facility] [address]wzt[address]oonj[address] [place] [address] Hemoglobin mass conc (Bld) 10.7 g/dL Low 13.0-17.0 [facility] Comment on above: Performed By: #### O HP, IOCAL ####[facility] [address]wdeiguw[address] [place] [address] MCH Auto Entitic mass (RBC) 31.4 pg Normal 25.2-33.5 [facility] Comment on above: Performed By: #### O HP, IOCAL ####[facility] [address]rnrzbmotg[address] [place] [address] MCHC Auto mass conc (RBC) 32.8 g/dL Normal 28.4-34.8 [facility] Comment on above: Performed By: #### O HP, IOCAL ####[facility] [address]znrpmzo[address] [place] [address] MCV Auto Entitic volume (RBC) 95.6 fL Normal 82.6-102.9 [facility] Comment on above: Performed By: #### O HP, IOCAL ####[address] [address] NRBC Automated 0.0 per 100 WBC Normal 0.0 [facility] Comment on above: Performed By: #### O HP, IOCAL ####[address] [address] Platelets Auto #/vol (Bld) See Reflexed IPF Result Normal 138-453 [facility] Comment on above: Performed By: #### O HP, IOCAL ####[address] [address] RBC Auto #/vol (Bld) 3.41 10*6/uL Low 4.21-5.77 [facility] Comment on above: Performed By: #### O HP, IOCAL ####[address] [address] WBC Auto #/vol (Bld) 28.0 10*3/uL High 3.5-11.3 [facility] Comment on above: Performed By: #### O HP, IOCAL ####[address] [address] CBC with Diffon 01-22-2018 Abs. Basophil 0.00 k/uL Normal 0.0-0.2 [facility] Comment on above: Performed By: #### O HP, IOCAL ####[address] [address] Abs.Imm.Granulocyte 0.29 k/uL Normal 0.00-0.30 [facility] Comment on above: Performed By: #### O HP, IOCAL ####[facility] Vsdltryuvwka6614 [place] [address] Abs.Neutrophil (Seg) 25.64 k/uL High 1.8-7.[address] [facility] Comment on above: Performed By: #### O HP, IOCAL ####[address] [address] Basophils/100 WBC Auto (Bld) 0 % Normal 0-2 [facility] Comment on above: Performed By: #### O HP, IOCAL ####[address] [address] Eosinophils Auto #/vol (Bld) 0.00 10*3/uL Normal 0.0-0.4 [facility] Comment on above: Performed By: #### O HP, IOCAL ####[address] [address] Eosinophils/100 WBC Auto (Bld) 0 % Low 1-4 [facility] Comment on above: Performed By: #### O HP, IOCAL ####[address] [address] Immature granulocytes #/vol (Bld) 1 % High 0 [facility] Comment on above: Performed By: #### O HP, IOCAL ####[address] [address] Lymphocytes Auto #/vol (Bld) 2.00 10*3/uL Normal 1.0-4.8 [facility] Comment on above: Performed By: #### O HP, IOCAL ####[address] [address] Lymphocytes/100 WBC Auto (Bld) 7 % Low 24-44 [facility] Comment on above: Performed By: #### O HP, IOCAL ####[address] [address] Monocytes Auto #/vol (Bld) 0.57 10*3/uL Normal 0.1-0.8 [facility] Comment on above: Performed By: #### O HP, IOCAL ####[address] [address] Monocytes/100 WBC Auto (Bld) 2 % Normal 1-7 [facility] Comment on above: Performed By: #### O HP, IOCAL ####[address] [address] Morphology Interp Eduard (Bld) INCREASED BANDS PRESENT Normal [facility] Comment on above: Result Comment: ANIS OCYTOSIS PRESENT Performed By: #### O HP, IOCAL ####[address] [address] Neutrophil (Seg) 90 % High 36-66 [facility] Comment on above: Performed By: #### O HP, IOCAL ####[address] [address] NRBC Automated 0.0 per 100 WBC Normal 0.0 [facility] Comment on above: Performed By: #### O HP, IOCAL ####[address] [address] WBC Auto #/vol (Bld) 28.5 10*3/uL High 3.5-11.3 [facility] Comment on above: Performed By: #### O HP, IOCAL ####[address] [address] Erythrocyte distribution width Auto Ratio (RBC) 15.6 % High 11.8-14.4 [facility] Comment on above: Performed By: #### O HP, IOCAL ####[address] [address] Hematocrit Auto Volume Fraction (Bld) 31.4 % Low 40.7-50.3 [facility] Comment on above: Performed By: #### O HP, IOCAL ####[address] [address] Hemoglobin mass conc (Bld) 10.3 g/dL Low 13.0-17.0 [facility] Comment on above: Performed By: #### O HP, IOCAL ####[address] [address] MCH Auto Entitic mass (RBC) 30.9 pg Normal 25.2-33.5 [facility] Comment on above: Performed By: #### O HP, IOCAL ####[address] [address] MCHC Auto mass conc (RBC) 32.8 g/dL Normal 28.4-34.8 [facility] Comment on above: Performed By: #### O HP, IOCAL ####[address] [address] MCV Auto Entitic volume (RBC) 94.3 fL Normal 82.6-102.9 [facility] Comment on above: Performed By: #### O HP, IOCAL ####[address] [address] Platelets Auto #/vol (Bld) See Reflexed IPF Result Normal 138-453 [facility] Comment on above: Performed By: #### O HP, IOCAL ####[address] [address] RBC Auto #/vol (Bld) 3.33 10*6/uL Low 4.21-5.77 [facility] Comment on above: Performed By: #### O HP, IOCAL ####[address] [address] Auto Diff Performed NOT REPORTED Normal [facility] Comment on above: Performed By: #### O HP, IOCAL ####[facility] [address] [address] Platelet mean volume Auto Entitic volume (Bld) NOT REPORTED Normal 8.1-13.5 [facility] Comment on above: Performed By: #### O HP, IOCAL ####[facility] [address] [place] [address] Platelets Auto #/vol (Bld) NOT REPORTED Normal [facility] Comment on above: Performed By: #### O HP, IOCAL ####[address] [address] RBC morphology finding Nom (Bld) NOT REPORTED Normal [facility] Comment on above: Performed By: #### O HP, IOCAL ####[address] [address] WBC Morphology NOT REPORTED Normal [facility] Comment on above: Performed By: #### O HP, IOCAL ####[address] [address] MRI LUMBAR SPINE WO CONTRAST on 01-22-2018 [...] T2 hyperintensity involves the L1 vertebral body. [id number] process acute fracture. Remaining vertebrae maintain normal [...] facet arthrosis, mildcentral spinal canal stenosis and cwba-jc-girdbtcy bilateral foraminalstenosis.IMPRESSION: L1 acute compression fracture, 20% anterior height loss. No bonyretropulsion or acute neural impingement.T12 acute spinous process fracture.Interpreted by:NADEGE Romeroigned by:Ramakrishna Santana MD01/22/18 Recipients:Rubina Arreaga DO - In Basket (authorizing provider)Final result Normal [facility] Magnesiumon 01-22-2018 Magnesium mass conc 2.0 mg/dL Normal 1.6-2.6 [facility] Comment on above: Performed By: #### O HP, IOCAL ####[facility] [address] [place] [address] PLT, Immature Fract.on 01-22 Platelet, Fluoresc. 128 k/uL Low 138-453 [facility] Comment on above: Result Comment: ORDE RED BY LAB Performed By: #### O HP, IOCAL ####[facility] [address] [place] [address] PLT, Immature Fract. 5.8 % Normal 1.1-10.[address] [facility] Comment on above: Result Comment: ORDE RED BY LAB Performed By: #### O HP, IOCAL ####[facility] [address] [place] [address] Platelet, Fluoresc. 132 k/uL Low 138-453 [facility] Comment on above: Performed By: #### O HP, IOCAL ####[facility] [address] [place] [address] PLT, Immature Fract. 6.2 % Normal 1.1-10.[address] [facility] Comment on above: Performed By: #### O HP, IOCAL ####[facility] [address] [place] [address] Phosphorus, Inorg.on 018 Phosphorus, Inorg. 2.2 mg/dL Low 2.5-4.5 [facility] Comment on above: Performed By: #### O HP, IOCAL ####[facility] [address] [place] [address] Phosphorus, Inorg. 2.5 mg/dL Normal 2.5-4.5 [facility] Comment on above: Result Comment: SOTO D ON Performed By: #### O HP, IOCAL ####[facility] [address]xt[address] [place] [address] XR CHEST PORTABLEon 01-23-20 18 XR CHEST [...] by:NADEGE Wrightigned by:Cassie Guzmán MD01/22/18inal result Normal [facility] Basic Metabolic Profon 01-21 (cont.) Normal [facility] Comment on above: Result Comment: Aver age GFR for 50-59 years old: 93 mL/min/1.73sq mChronic Kidney Disease: <60 mL/min/1.73sq mKidney failure: <15 mL/min/1.73sq meGFR calculated using average adult body mass. Additional eGFR calculator available at:http://www.Yoke/multiple_crcl_2011.htm Performed By: #### B MP, BNP ####[address] [place] [address] Performed By: #### E RTPF, CONNER, LIP, LIVP, TEGCR ####[facility] [address] [place] [address] Anion gap 3 molar conc 9 mmol/L Normal 9-17 [facility] Comment on above: Performed By: #### B MP, BNP ####[facility] [address] [place] [address] Calcium mass conc 8.1 mg/dL Low 8.6-10.4 [facility] Comment on above: Performed By: #### B MP, BNP ####[facility] [address] [place] [address] Performed By: #### E RTPF, CONNER, LIP, LIVP, TEGCR ####[facility] [address] [place] [address] Chloride molar conc 99 mmol/L Normal 98-107 [facility] Comment on above: Performed By: #### B MP, BNP ####[facility] [address] [place] [address] Performed By: #### E RTPF, CONNER, LIP, LIVP, TEGCR ####[facility] [address] [place] [address] CO2 molar conc 27 mmol/L Normal 20-31 [facility] Comment on above: Performed By: #### B MP, BNP ####[facility] [address] [place] [address] Creatinine mass conc 0.54 mg/dL Low 0.70-1.[address] [facility] Comment on above: Performed By: #### B MP, BNP ####[facility] [address] [place] [address] GFR, Amer >60 Normal >60 [facility] Comment on above: Performed By: #### B MP, BNP ####[facility] [place] [address] Performed By: #### E RTPF, CONNER, LIP, LIVP, TEGCR ####[facility] [address] [place] [address] GFR,non Amer >60 Normal >[address] [facility] Comment on above: Performed By: #### B MP, BNP ####[facility] [address] [place] [address] Performed By: #### E RTPF, CONNER, LIP, LIVP, TEGCR ####[facility] [address] [place] [address] Glucose mass conc 106 mg/dL High 70-99 [facility] Comment on above: Performed By: #### B MP, BNP ####[facility] [address] [place] [address] Potassium molar conc 4.4 mmol/L Normal 3.7-5.[address] [facility] Comment on above: Performed By: #### B MP, BNP ####[facility] [place] [address] Sodium molar conc 135 mmol/L Normal 135-144 [facility] Comment on above: Performed By: #### B MP, BNP ####[facility] [place] [address] Urea nitrogen mass conc 7 mg/dL Normal 6-20 [facility] Comment on above: Performed By: #### B MP, BNP ####[address] [place] [address] Performed By: #### E RTPF, CONNER, LIP, LIVP, TEGCR ####[address] [place] [address] Anion gap 3 molar conc 10 mmol/L Normal 9-17 [facility] Comment on above: Performed By: #### E RTPF, CONNER, LIP, LIVP, TEGCR ####[facility] [place] [address] CO2 molar conc 28 mmol/L Normal 20-31 [facility] Comment on above: Performed By: #### E RTPF, CONNER, LIP, LIVP, TEGCR ####[facility] [place] [address] Creatinine mass conc 0.56 mg/dL Low 0.70-1.[address] [facility] Comment on above: Performed By: #### E RTPF, CONNER, LIP, LIVP, TEGCR ####[facility] [place] [address] Glucose mass conc 97 mg/dL Normal 70-99 [facility] Comment on above: Performed By: #### E RTPF, CONNER, LIP, LIVP, TEGCR ####[facility] [place] [address] Potassium molar conc 4.7 mmol/L Normal 3.7-5.[address] [facility] Comment on above: Performed By: #### E RTPF, CONNER, LIP, LIVP, TEGCR ####[address] [place] [address] Sodium molar conc 137 mmol/L Normal 135-144 [facility] Comment on above: Performed By: #### E RTPF, CONNER, LIP, LIVP, TEGCR ####[address] [place] [address] BUN/CRE Ratio NOT REPORTED Normal 01-21 [facility] Comment on above: Performed By: #### B MP, BNP ####[address] [address] Performed By: #### E RTPF, CONNER, LIP, LIVP, TEGCR ####[address] [address] Staging: NOT REPORTED Normal [facility] Comment on above: Performed By: #### B MP, BNP ####[address] [address] Performed By: #### E RTPF, CONNER, LIP, LIVP, TEGCR ####[address] [place] [address] Brain Natri. Peptideon 01-21 Natriuretic peptide B mass conc (Bld) [address] pg/mL High <300 [facility] Comment on above: Result Comment: Pro- BNP results cannot be compared to BNP results. Performed By: #### B MP, BNP ####[address] [address] Natriuretic peptide B mass conc (Bld) Normal [facility] Comment on above: Result Comment: Pro- BNP Reference Range:Rule Out: <300[place]: Age <50 300-450 Age 50-75 300-900 Age >75 300-1800Usually represents mild to moderate HF but other cardiopulmonary causes cannot be ruled out.Rule In: Age <50 >450 Age 50-75 >900 Age >75 >1800 Performed By: #### B MP, BNP ####[address] [address] CBCon 01-21-2018 Erythrocyte distribution width Auto Ratio (RBC) 15.8 % High 11.8-14.4 [facility] Comment on above: Performed By: #### E RTPF, CONNER, LIP, LIVP, TEGCR ####[address] [address] Hematocrit Auto Volume Fraction (Bld) 35.6 % Low 40.7-50.3 [facility] Comment on above: Performed By: #### E RTPF, CONNER, LIP, LIVP, TEGCR ####[address] [address] Hemoglobin mass conc (Bld) 12.1 g/dL Low 13.0-17.0 [facility] Comment on above: Performed By: #### E RTPF, CONNER, LIP, LIVP, TEGCR ####[address] [address] MCH Auto Entitic mass (RBC) 31.1 pg Normal 25.2-33.5 [facility] Comment on above: Performed By: #### E RTPF, CONNER, LIP, LIVP, TEGCR ####[address] [address] MCHC Auto mass conc (RBC) 34.0 g/dL Normal 28.4-34.8 [facility] Comment on above: Performed By: #### E RTPF, CONNER, LIP, LIVP, TEGCR ####[address] [address] MCV Auto Entitic volume (RBC) 91.5 fL Normal 82.6-102.9 [facility] Comment on above: Performed By: #### E RTPF, CONNER, LIP, LIVP, TEGCR ####[address] [address] NRBC Automated 0.0 per 100 WBC Normal 0.0 [facility] Comment on above: Performed By: #### E RTPF, CONNER, LIP, LIVP, TEGCR ####[address] [address] Platelets Auto #/vol (Bld) See Reflexed IPF Result Normal 138-453 [facility] Comment on above: Performed By: #### E RTPF, CONNER, LIP, LIVP, TEGCR ####[address] [address] RBC Auto #/vol (Bld) 3.89 10*6/uL Low 4.21-5.77 [facility] Comment on above: Performed By: #### E RTPF, CONNER, LIP, LIVP, TEGCR ####[address] [address] WBC Auto #/vol (Bld) 19.4 10*3/uL High 3.5-11.3 [facility] Comment on above: Performed By: #### E RTPF, CONNER, LIP, LIVP, TEGCR ####[address] [address] Platelet mean volume Auto Entitic volume (Bld) NOT REPORTED Normal 8.1-13.5 [facility] Comment on above: Performed By: #### E RTPF, CONNER, LIP, LIVP, TEGCR ####[address] [address] [address] GUIDED THORACENTESIS PROCEDURE:CTGUIDED RIGHT THORACENTESIS01/21/2018HISTORY :ORDERING SYSTEM PROVIDED HISTORY: pleural effusion. spoke with Dr. JacomeOLOGIST PROVIDED HISTORY:pleural effusion. spoke with Dr. Ram:Informed consent was obtained after a detailed explanation of the procedureincluding risks, benefits, and alternatives. [place] protocol wasperformed. The right chest was prepped and draped in sterile fashion andlocal anesthesia was achieved with lidocaine. An 5 [place] needle sheath wasadvanced under ultrasound guidance into pleural effusion and thoracentesiswas performed; ~ 150 mL of mildly serosanguineous fluid was removed. A 2ndpuncture again using 5 [place] needle sheath was used, a 0.018 inch guidewireintroduced, and a 6 [place] pigtail catheter placed. Another 450 mL ofsimilar-appearing fluid was then aspirated. The patient tolerated theprocedure well.FINDINGS:A total of 700 mL was removed. As above, fluid was mildly serosanguineous.Small pneumothorax is noted following the procedure. Follow-up chest x-rayordered for 1 hour postprocedure. Patient has extensive emphysematouschanges.IMPRESSI ON: Successful CT guided thoracentesis. Small pneumothorax post thoracentesis.Chest x-ray ordered.Interpreted by:NADEGE Carrascoigned by:Fidel Link MD01/21/18inal result Normal [facility] Calcium, Ionicon 01-21-2018 Calcium mass conc 1.17 mmol/L Normal 1.13-1.33 [facility] Comment on above: Performed By: #### E RTPF, CONNER, LIP, LIVP, TEGCR ####[facility] [address] [place] [address] Creatinine,Random Uron 01-21 Creatinine mass conc 83.9 mg/dL Normal 39.0-259.[address] [facility] Comment on above: Performed By: #### U RCRE, URNA ####[facility] [address] [place] [address] Lactate Dehydrog, Flon 01-21 LD - Fluid 382 U/L Normal [facility] Comment on above: Result Comment: Ther e are no normals for body fluid samples. Performed By: #### O HP, IOCAL ####[facility] [address] [place] [address] Type of Specimen .THORACENTESIS FLUID Normal [facility] Comment on above: Performed By: #### O HP, IOCAL ####[facility] [address] [place] [address] Lactate Dehydrogenaseon 01-03 LDH enzyme act/vol 278 U/L High 135-225 [facility] Comment on above: Performed By: #### O HP, IOCAL ####[facility] [address] [place] [address] Lactic Acid,Whole Blon 01-21 Lactic Acid,Whole Bl 2.6 mmol/L High 0.7-2.[address] [facility] Comment on above: Performed By: #### E RTPF, CONNER, LIP, LIVP, TEGCR ####[facility] [address] [place] [address] MRI CERVICAL SPINE WO CONTRA STon 01-21-2018 [...] by:NADEGE Linigned by:Mariana Whitfield MD01/21/18inal result Normal [facility] Magnesiumon 01-21-2018 Magnesium mass conc 1.9 mg/dL Normal 1.6-2.6 [facility] Comment on above: Performed By: #### C BC, IPF, IOCAL, LACWB, BMP, MG, SHERRY ####[facility] [address] [place] [address] PLT, Immature Fract.on 01-21 Platelet, Fluoresc. 135 k/uL Low 138-453 [facility] Comment on above: Result Comment: ORDE RED BY LAB Performed By: #### E RTPF, CONNER, LIP, LIVP, TEGCR ####[facility] [address] [place] [address] PLT, Immature Fract. 3.9 % Normal 1.1-10.[address] [facility] Comment on above: Result Comment: ORDE RED BY LAB Performed By: #### E RTPF, CONNER, LIP, LIVP, TEGCR ####[facility] [address] [place] [address] Phosphorus, Inorg.on 018 Phosphorus, Inorg. 3.7 mg/dL Normal 2.5-4.5 [facility] Comment on above: Performed By: #### C BC, IPF, IOCAL, LACWB, BMP, MG, SHERRY ####[facility] [address] [place] [address] Protein, Totalon 01-21-2018 Protein mass conc 5.1 g/dL Low 6.4-8.3 [facility] Comment on above: Performed By: #### O HP, IOCAL ####[facility] [address] [place] [address] Protein,Tot,Fluidon 01-22-20 18 Protein mass conc 1.6 g/dL Normal [facility] Comment on above: Result Comment: Ther e are no normals for body fluid samples. Performed By: #### O HP, IOCAL ####[facility] [address] [place] [address] Sodium, Random Uron 01-22-20 18 Na Conc. Urine 102 mmol/L Normal [facility] Comment on above: Result Comment: No n ormal range established. Performed By: #### U RCRE, URNA ####[facility] [address] [place] [address] XR ABDOMEN (KUB) (SINGLE AP VIEW)on 01-21-2018 [...] by:NADEGE Diazigned by:Raul Currie MD01/21/18 result Normal [facility] XR CHEST PORTABLEon 01-22-20 18 XR CHEST PORTABLE EXAMINATION:SINGLE X RAY VIEW OF THE CHEST01/21/2018 5:24 pmCOMPARISON:AP chest from 01/21/2018 at 10:36HISTORY:ORDERING SYSTEM PROVIDED HISTORY: 1 hour post thoraTECHNOLOGIST PROVIDED HISTORY:1 hour post thoraSmall pneumothorax noted post CT-guided thoracentesis.FINDINGS:[place] ing ECG monitor leads. Enteric tube tip and side hole below the lefthemidiaphragm. [place] and clips in the upper abdomen.Reduction size right pleural effusion. No significant pneumothoraxidentified. Extensive emphysematous and interstitial changes again noted, aswell as a left pleural effusion.Cardiomediastinal shadow on bony structures stable.IMPRESSION: Reduction right pleural effusion status post CT-guided thoracentesis. Nosignificant pneumothorax identified. Additional unchanged findings, as above.RECOMMENDATION:Chest x-ray follow-up in the a.m. assuming clinical stability.Interpreted by:NADEGE Carrascoigned by:Fidel Link MD01/21/18 result Normal [facility] XR CHEST PORTABLE EXAMINATION:SINGLE X RAY VIEW [...] by:NADEGE Diazigned by:Raul Currie MD9/20/18Final result Normal [facility] APTTon 01-20-2018 aPTT Coag time (Bld) 44.9 s High 20.5-30.[address] [facility] Comment on above: Performed By: #### E RTPF, CONNER, LIP, LIVP, TEGCR ####[address] [place] [address] Basic Metabolic Profon 01-20 (cont.) Normal [facility] Comment on above: Result Comment: Aver age GFR for 50-59 years old: 93 mL/min/1.73sq mChronic Kidney Disease: <60 mL/min/1.73sq mKidney failure: <15 mL/min/1.73sq meGFR calculated using average adult body mass. Additional eGFR calculator available at:http://www.Yoke/multiple_crcl_2012.htm Performed By: #### E RTPF, CONNER, LIP, LIVP, TEGCR ####[address] [place] [address] Anion gap 3 molar conc 18 mmol/L High 9-17 [facility] Comment on above: Performed By: #### E RTPF, CONNER, LIP, LIVP, TEGCR ####[address] [place] [address] Calcium mass conc 7.5 mg/dL Low 8.6-10.4 [facility] Comment on above: Performed By: #### E RTPF, CONNER, LIP, LIVP, TEGCR ####[facility] [address] [place] [address] Chloride molar conc 103 mmol/L Normal 98-107 [facility] Comment on above: Performed By: #### E RTPF, CONNER, LIP, LIVP, TEGCR ####[address] [place] [address] CO2 molar conc 17 mmol/L Low 20-31 [facility] Comment on above: Performed By: #### E RTPF, CONNER, LIP, LIVP, TEGCR ####[address] [address] Creatinine mass conc 0.38 mg/dL Low 0.70-1.[address] [facility] Comment on above: Performed By: #### E RTPF, CONNER, LIP, LIVP, TEGCR ####[address] [address] GFR, Amer >60 Normal >60 [facility] Comment on above: Performed By: #### E RTPF, CONNER, LIP, LIVP, TEGCR ####[address] [address] GFR,non Amer >60 Normal >[address] [facility] Comment on above: Performed By: #### E RTPF, CONNER, LIP, LIVP, TEGCR ####[address] [address] Glucose mass conc 80 mg/dL Normal 70-99 [facility] Comment on above: Performed By: #### E RTPF, CONNER, LIP, LIVP, TEGCR ####[address] [address] Potassium molar conc 4.3 mmol/L Normal 3.7-5.[address] [facility] Comment on above: Performed By: #### E RTPF, CONNER, LIP, LIVP, TEGCR ####[address] [address] Sodium molar conc 138 mmol/L Normal 135-144 [facility] Comment on above: Performed By: #### E RTPF, CONNER, LIP, LIVP, TEGCR ####[address] [address] Urea nitrogen mass conc 6 mg/dL Normal 6-20 [facility] Comment on above: Performed By: #### E RTPF, CONNER, LIP, LIVP, TEGCR ####[address] [place] [address] BUN/CRE Ratio NOT REPORTED Normal -20 [facility] Comment on above: Performed By: #### E RTPF, CONNER, LIP, LIVP, TEGCR ####[address] [address] Staging: NOT REPORTED Normal [facility] Comment on above: Performed By: #### E RTPF, CONNER, LIP, LIVP, TEGCR ####[address] [address] (cont.) Normal [facility] Comment on above: Result Comment: Aver age GFR for 50-59 years old: 93 mL/min/1.73sq mChronic Kidney Disease: <60 mL/min/1.73sq mKidney failure: <15 mL/min/1.73sq meGFR calculated using average adult body mass. Additional eGFR calculator available at:http://www.[employer]/multiple_crcl_2012.htm Performed By: #### E RTPF, CONNER, LIP, LIVP, TEGCR ####[address] [address] Anion gap 3 molar conc 17 mmol/L Normal -17 [facility] Comment on above: Performed By: #### E RTPF, CONNER, LIP, LIVP, TEGCR ####[address] [place] [address] Calcium mass conc 7.1 mg/dL Low 8.6-10.4 [facility] Comment on above: Performed By: #### E RTPF, CONNER, LIP, LIVP, TEGCR ####[address] [address] Chloride molar conc 102 mmol/L Normal 98-107 [facility] Comment on above: Performed By: #### E RTPF, CONNER, LIP, LIVP, TEGCR ####[facility] [address] [place] [address] CO2 molar conc 16 mmol/L Low 20-31 [facility] Comment on above: Performed By: #### E RTPF, CONNER, LIP, LIVP, TEGCR ####[address] [address] Creatinine mass conc 0.44 mg/dL Low 0.70-1.[address] [facility] Comment on above: Performed By: #### E RTPF, CONNER, LIP, LIVP, TEGCR ####[address] [address] GFR, Amer >60 Normal >60 [facility] Comment on above: Performed By: #### E RTPF, CONNER, LIP, LIVP, TEGCR ####[address] [address] GFR,non Amer >60 Normal >[address] [facility] Comment on above: Performed By: #### E RTPF, CONNER, LIP, LIVP, TEGCR ####[facility] [place] [address] Glucose mass conc 89 mg/dL Normal 70-99 [facility] Comment on above: Performed By: #### E RTPF, CONNER, LIP, LIVP, TEGCR ####[facility] [place] [address] Potassium molar conc 4.5 mmol/L Normal 3.7-5.[address] [facility] Comment on above: Performed By: #### E RTPF, CONNER, LIP, LIVP, TEGCR ####[address] [address] Sodium molar conc 135 mmol/L Normal 135-144 [facility] Comment on above: Performed By: #### E RTPF, CONNER, LIP, LIVP, TEGCR ####[address] [address] Urea nitrogen mass conc 5 mg/dL Low - [facility] Comment on above: Performed By: #### E RTPF, CONNER, LIP, LIVP, TEGCR ####[address] [address] BUN/CRE Ratio NOT REPORTED Normal - [facility] Comment on above: Performed By: #### E RTPF, CONNER, LIP, LIVP, TEGCR ####[address] [address] Staging: NOT REPORTED Normal [facility] Comment on above: Performed By: #### E RTPF, CONNER, LIP, LIVP, TEGCR ####[address] [address] CBC with Diffon 01-20-2018 Abs. Basophil 0.00 k/uL Normal 0.0-0.2 [facility] Comment on above: Performed By: #### E RTPF, CONNER, LIP, LIVP, TEGCR ####[address] [address] Abs.Imm.Granulocyte 0.02 k/uL Normal 0.00-0.30 [facility] Comment on above: Performed By: #### E RTPF, CONNER, LIP, LIVP, TEGCR ####[address] [address] Abs.Neutrophil (Seg) 0.90 k/uL Low 1.8-7.[address] [facility] Comment on above: Performed By: #### E RTPF, CONNER, LIP, LIVP, TEGCR ####[address] [address] Basophils/100 WBC Auto (Bld) 0 % Normal 0-2 [facility] Comment on above: Performed By: #### E RTPF, CONNER, LIP, LIVP, TEGCR ####[address] [address] Eosinophils Auto #/vol (Bld) 0.00 10*3/uL Normal 0.0-0.4 [facility] Comment on above: Performed By: #### E RTPF, CONNER, LIP, LIVP, TEGCR ####[address] [address] Eosinophils/100 WBC Auto (Bld) 0 % Low 1-4 [facility] Comment on above: Performed By: #### E RTPF, CONNER, LIP, LIVP, TEGCR ####[address] [address] Immature granulocytes #/vol (Bld) 1 % High 0 [facility] Comment on above: Performed By: #### E RTPF, CONNER, LIP, LIVP, TEGCR ####[address] [address] Lymphocytes Auto #/vol (Bld) 0.47 10*3/uL Low 1.0-4.8 [facility] Comment on above: Performed By: #### E RTPF, CONNER, LIP, LIVP, TEGCR ####[address] [address] Lymphocytes/100 WBC Auto (Bld) 31 % Normal 24-44 [facility] Comment on above: Performed By: #### E RTPF, CONNER, LIP, LIVP, TEGCR ####[address] [place] [address] Monocytes Auto #/vol (Bld) 0.11 10*3/uL Normal 0.1-0.8 [facility] Comment on above: Performed By: #### E RTPF, CONNER, LIP, LIVP, TEGCR ####[address] [address] Monocytes/100 WBC Auto (Bld) 7 % Normal 1-7 [facility] Comment on above: Performed By: #### E RTPF, CONNER, LIP, LIVP, TEGCR ####[address] [address] Morphology Interp Eduard (Bld) ANISOCYTOSIS PRESENT Normal [facility] Comment on above: Performed By: #### E RTPF, CONNER, LIP, LIVP, TEGCR ####[address] [address] Neutrophil (Seg) 61 % Normal 36-66 [facility] Comment on above: Performed By: #### E RTPF, CONNER, LIP, LIVP, TEGCR ####[address] [address] NRBC Automated 0.0 per 100 WBC Normal 0.0 [facility] Comment on above: Performed By: #### E RTPF, CONNER, LIP, LIVP, TEGCR ####[address] [address] Platelet mean volume Auto Entitic volume (Bld) 9.9 fL Normal 8.1-13.5 [facility] Comment on above: Performed By: #### E RTPF, CONNER, LIP, LIVP, TEGCR ####[address] [address] Platelets Auto #/vol (Bld) 176 10*3/uL Normal 138-453 [facility] Comment on above: Performed By: #### E RTPF, CONNER, LIP, LIVP, TEGCR ####[address] [address] WBC Auto #/vol (Bld) 1.5 10*3/uL Low 3.5-11.3 [facility] Comment on above: Performed By: #### E RTPF, CONNER, LIP, LIVP, TEGCR ####[address] [address] Erythrocyte distribution width Auto Ratio (RBC) 16.1 % High 11.8-14.4 [facility] Comment on above: Performed By: #### E RTPF, CONNER, LIP, LIVP, TEGCR ####[address] [address] Hematocrit Auto Volume Fraction (Bld) 38.6 % Low 40.7-50.3 [facility] Comment on above: Performed By: #### E RTPF, CONNER, LIP, LIVP, TEGCR ####[address] [address] Hemoglobin mass conc (Bld) 12.4 g/dL Low 13.0-17.0 [facility] Comment on above: Performed By: #### E RTPF, CONNER, LIP, LIVP, TEGCR ####[address] [address] MCH Auto Entitic mass (RBC) 31.2 pg Normal 25.2-33.5 [facility] Comment on above: Performed By: #### E RTPF, CONNER, LIP, LIVP, TEGCR ####[address] [address] MCHC Auto mass conc (RBC) 32.1 g/dL Normal 28.4-34.8 [facility] Comment on above: Performed By: #### E RTPF, CONNER, LIP, LIVP, TEGCR ####[address] [address] MCV Auto Entitic volume (RBC) 97.2 fL Normal 82.6-102.9 [facility] Comment on above: Performed By: #### E RTPF, CONNER, LIP, LIVP, TEGCR ####[address] [address] RBC Auto #/vol (Bld) 3.97 10*6/uL Low 4.21-5.77 [facility] Comment on above: Performed By: #### E RTPF, CONNER, LIP, LIVP, TEGCR ####[address] [address] Auto Diff Performed NOT REPORTED Normal [facility] Comment on above: Performed By: #### E RTPF, CONNER, LIP, LIVP, TEGCR ####[address] [address] Platelets Auto #/vol (Bld) NOT REPORTED Normal [facility] Comment on above: Performed By: #### E RTPF, CONENR, LIP, LIVP, TEGCR ####[address] [address] RBC morphology finding Nom (Bld) NOT REPORTED Normal [facility] Comment on above: Performed By: #### E RTPF, CONNER, LIP, LIVP, TEGCR ####[address] [address] WBC Morphology NOT REPORTED Normal [facility] Comment on above: Performed By: #### E RTPF, CONNER, LIP, LIVP, TEGCR ####[address] [address] Abs. Basophil 0.00 k/uL Normal 0.0-0.2 [facility] Comment on above: Performed By: #### E RTPF, CONNER, LIP, LIVP, TEGCR ####[place] [address] Abs.Imm.Granulocyte 0.00 k/uL Normal 0.00-0.30 [facility] Comment on above: Performed By: #### E RTPF, CONNER, LIP, LIVP, TEGCR ####[place] [address] Abs.Neutrophil (Seg) 0.80 k/uL Low 1.8-7.[address] [facility] Comment on above: Performed By: #### E RTPF, CONNER, LIP, LIVP, TEGCR ####[place] [address] Basophils/100 WBC Auto (Bld) 0 % Normal 0-2 [facility] Comment on above: Performed By: #### E RTPF, CONNER, LIP, LIVP, TEGCR ####[place] [address] Eosinophils Auto #/vol (Bld) 0.00 10*3/uL Normal 0.0-0.4 [facility] Comment on above: Performed By: #### E RTPF, CONNER, LIP, LIVP, TEGCR ####[place] [address] Eosinophils/100 WBC Auto (Bld) 0 % Low 1-4 [facility] Comment on above: Performed By: #### E RTPF, CONNER, LIP, LIVP, TEGCR ####[place] [address] Immature granulocytes #/vol (Bld) 0 % Normal 0 [facility] Comment on above: Performed By: #### E RTPF, CONNER, LIP, LIVP, TEGCR ####[address] [address] Lymphocytes Auto #/vol (Bld) 0.66 10*3/uL Low 1.0-4.8 [facility] Comment on above: Performed By: #### E RTPF, CONNER, LIP, LIVP, TEGCR ####[address] [address] Lymphocytes/100 WBC Auto (Bld) 39 % Normal 24-44 [facility] Comment on above: Performed By: #### E RTPF, CONNER, LIP, LIVP, TEGCR ####[address] [address] Monocytes Auto #/vol (Bld) 0.24 10*3/uL Normal 0.1-0.8 [facility] Comment on above: Performed By: #### E RTPF, CONNER, LIP, LIVP, TEGCR ####[address] [address] Monocytes/100 WBC Auto (Bld) 14 % High 1-7 [facility] Comment on above: Performed By: #### E RTPF, CONNER, LIP, LIVP, TEGCR ####[address] [address] Morphology Interp Eduard (Bld) Normal Normal [facility] Comment on above: Performed By: #### E RTPF, CONNER, LIP, LIVP, TEGCR ####[address] [address] Neutrophil (Seg) 47 % Normal 36-66 [facility] Comment on above: Performed By: #### E RTPF, CONNER, LIP, LIVP, TEGCR ####[address] [address] NRBC Automated 0.0 per 100 WBC Normal 0.0 [facility] Comment on above: Performed By: #### E RTPF, CONNER, LIP, LIVP, TEGCR ####[address] [address] Platelet mean volume Auto Entitic volume (Bld) 9.6 fL Normal 8.1-13.5 [facility] Comment on above: Performed By: #### E RTPF, CONNER, LIP, LIVP, TEGCR ####[address] [address] Platelets Auto #/vol (Bld) 171 10*3/uL Normal 138-453 [facility] Comment on above: Performed By: #### E RTPF, CONNER, LIP, LIVP, TEGCR ####[address] [address] WBC Auto #/vol (Bld) 1.7 10*3/uL Low 3.5-11.3 [facility] Comment on above: Performed By: #### E RTPF, CONNER, LIP, LIVP, TEGCR ####[address] [address] Erythrocyte distribution width Auto Ratio (RBC) 15.5 % High 11.8-14.4 [facility] Comment on above: Performed By: #### E RTPF, CONNER, LIP, LIVP, TEGCR ####[address] [address] Hematocrit Auto Volume Fraction (Bld) 38.5 % Low 40.7-50.3 [facility] Comment on above: Performed By: #### E RTPF, CONNER, LIP, LIVP, TEGCR ####[address] [address] Hemoglobin mass conc (Bld) 12.5 g/dL Low 13.0-17.0 [facility] Comment on above: Performed By: #### E RTPF, CONNER, LIP, LIVP, TEGCR ####[address] [address] MCH Auto Entitic mass (RBC) 31.2 pg Normal 25.2-33.5 [facility] Comment on above: Performed By: #### E RTPF, CONNER, LIP, LIVP, TEGCR ####[address] [address] MCHC Auto mass conc (RBC) 32.5 g/dL Normal 28.4-34.8 [facility] Comment on above: Performed By: #### E RTPF, CONNER, LIP, LIVP, TEGCR ####[address] [address] MCV Auto Entitic volume (RBC) 96.0 fL Normal 82.6-102.9 [facility] Comment on above: Performed By: #### E RTPF, CONNER, LIP, LIVP, TEGCR ####[address] [address] RBC Auto #/vol (Bld) 4.01 10*6/uL Low 4.21-5.77 [facility] Comment on above: Performed By: #### E RTPF, CONNER, LIP, LIVP, TEGCR ####[address] [address] Auto Diff Performed NOT REPORTED Normal [facility] Comment on above: Performed By: #### E RTPF, CONNER, LIP, LIVP, TEGCR ####[address] [address] Platelets Auto #/vol (Bld) NOT REPORTED Normal [facility] Comment on above: Performed By: #### E RTPF, CONNER, LIP, LIVP, TEGCR ####[address] [address] RBC morphology finding Nom (Bld) NOT REPORTED Normal [facility] Comment on above: Performed By: #### E RTPF, CONNER, LIP, LIVP, TEGCR ####[address] [address] WBC Morphology NOT REPORTED Normal [facility] Comment on above: Performed By: #### E RTPF, CONNER, LIP, LIVP, TEGCR ####[address] [address] Calcium, Ionicon 01-20-2018 Calcium mass conc 1.13 mmol/L Normal 1.13-1.33 [facility] Comment on above: Performed By: #### E RTPF, CONNER, LIP, LIVP, TEGCR ####[address] [address] Calcium mass conc 1.06 mmol/L Low 1.13-1.33 [facility] Comment on above: Performed By: #### E RTPF, CONNER, LIP, LIVP, TEGCR ####[address] [address] Calcium mass conc 1.36 mmol/L High 1.13-1.33 [facility] Comment on above: Performed By: #### E RTPF, CONNER, LIP, LIVP, TEGCR ####[address] [address] Fibrinogenon 01-20-2018 Fibrinogen <80 Critically low 140-420 [facility] Comment on above: Result Comment: TEST CONFIRMED Performed By: #### E RTPF, CONNER, LIP, LIVP, TEGCR ####[address] [address] Lactic Acid,Whole Blon 01-20 Lactic Acid,Whole Bl 3.2 mmol/L High 0.7-2.[address] [facility] Comment on above: Performed By: #### E RTPF, CONNER, LIP, LIVP, TEGCR ####[facility] [address] [place] [address] Lactic Acid,Whole Bl 5.6 mmol/L High 0.7-2.[address] [facility] Comment on above: Performed By: #### E RTPF, CONNER, LIP, LIVP, TEGCR ####[facility] [address] [place] [address] Lactic Acid,Whole Bl 5.9 mmol/L High 0.7-2.[address] [facility] Comment on above: Performed By: #### E RTPF, CONNER, LIP, LIVP, TEGCR ####[address] [place] [address] Liver Profileon 01-20-2018 Albumin mass conc 2.3 g/dL Low 3.5-5.2 [facility] Comment on above: Performed By: #### E RTPF, CONNER, LIP, LIVP, TEGCR ####[facility] [place] [address] Albumin/Globulin mass ratio 1.4 {ratio} Normal 1.0-2.5 [facility] Comment on above: Performed By: #### E RTPF, CONNER, LIP, LIVP, TEGCR ####[facility] [place] [address] Alkaline Phos 54 U/L Normal 40-129 [facility] Comment on above: Performed By: #### E RTPF, CONNER, LIP, LIVP, TEGCR ####[facility] [place] [address] ALT enzyme act/vol 22 U/L Normal 5-41 [facility] Comment on above: Performed By: #### E RTPF, CONNER, LIP, LIVP, TEGCR ####[facility] [place] [address] AST enzyme act/vol 48 U/L High <40 [facility] Comment on above: Performed By: #### E RTPF, CONNER, LIP, LIVP, TEGCR ####[address] [place] [address] Bilirubin Ql (U) 0.97 mg/dL Normal 0.3-1.2 [facility] Comment on above: Performed By: #### E RTPF, CONNER, LIP, LIVP, TEGCR ####[address] [place] [address] Bilirubin, Indirect 0.24 mg/dL Normal 0.00-1.00 [facility] Comment on above: Performed By: #### E RTPF, CONNER, LIP, LIVP, TEGCR ####[address] [place] [address] Bilirubin.direct mass conc 0.73 mg/dL High <0.31 [facility] Comment on above: Performed By: #### E RTPF, CONNER, LIP, LIVP, TEGCR ####[address] [place] [address] Protein mass conc 3.9 g/dL Low 6.4-8.3 [facility] Comment on above: Performed By: #### E RTPF, CONNER, LIP, LIVP, TEGCR ####[address] [place] [address] Globulin Calculated mass conc (S) NOT REPORTED Normal 1.5-3.8 [facility] Comment on above: Performed By: #### E RTPF, CONNER, LIP, LIVP, TEGCR ####[address] [place] [address] MRSA, DNA, Nasalon 8 MRSA, DNA, Nasal NEGATIVE: MRSA DNA n ot detected by nucleic acid amplification. Normal NMRSAA [facility] Comment on above: Result Comment: Resu lts should be used as an adjunct to nosocomial control efforts to identify patients needing enhanced precautions.The test is not intended to identify patients with staphylococcal infections. Results should not be used to guide or monitor treatment for MRSA infections. Performed By: #### E RTPF, CONNER, LIP, LIVP, TEGCR ####[address] [place] [address] Specimen Description .NASAL SWAB Normal [facility] Comment on above: Performed By: #### E RTPF, CONNER, LIP, LIVP, TEGCR ####[address] [address] Magnesiumon 01-20-2018 Magnesium mass conc 1.7 mg/dL Normal 1.6-2.6 [facility] Comment on above: Performed By: #### E RTPF, CONNER, LIP, LIVP, TEGCR ####[facility] [address] [place] [address] Magnesium mass conc 1.2 mg/dL Low 1.6-2.6 [facility] Comment on above: Performed By: #### E RTPF, CONNER, LIP, LIVP, TEGCR ####[facility] [address] [place] [address] Magnesium mass conc 1.1 mg/dL Low 1.6-2.6 [facility] Comment on above: Performed By: #### E RTPF, CONNER, LIP, LIVP, TEGCR ####[facility] [place] [address] OPERATIVE REPORTon 8 OPERATIVE REPORT [address] [address] OPERATIVE REPORTPATIENT NAME: ALEJO FLOYD : 1960[facility] REC NO: [id number] ROOM: [address] [place] [address] NO: [id number] ADMIT DATE: 01/19/2018PROVIDER: Ele MottDATE OF PROCEDURE: [...] L1 burst fracture. [facility]. On arrival,the patient [...] we turned our attention to performing a gucj-eg-yejf ileocolonicanastomosis. A EWELINA blue load 75 was [...] was made using #0 looped PDS from lhbinddv-gx-evcacwru brwphgnognq-lw-wnurqrdl tying in the middle. Once the abdomen [...] of the procedure.ELE MOTTD: 01/20/2018 4:44:47 MARIE_DUSTINRA_TJob#: [id number] Doc#: [id number]: Morgan Willson Normal [facility] Open Heart Panelon 8 Josue Test INFORMATION NOT PROVIDED Normal [facility] Comment on above: Performed By: #### E RTPF, CONNER, LIP, LIVP, TEGCR ####[address] [address] Body Temp. 37.0 Normal [facility] Comment on above: Performed By: #### E RTPF, CONNER, LIP, LIVP, TEGCR ####[address] [address] Carboxy Hgb 3.8 % Normal 0-5 [facility] Comment on above: Result Comment: Refe rence Range:Non-Smokers 0-2%Average Smoker 2-4%Heavy Smoker <10% Performed By: #### E RTPF, CONNER, LIP, LIVP, TEGCR ####[address] [address] FIO2 INFORMATION NOT PROVIDED Normal [facility] Comment on above: Performed By: #### E RTPF, CONNER, LIP, LIVP, TEGCR ####[address] [address] Glucose mass conc 73 mg/dL Low 75-110 [facility] Comment on above: Performed By: #### E RTPF, CONNER, LIP, LIVP, TEGCR ####[address] [address] HCO3 molar conc (Bld) 13.7 mmol/L Low 22-27 [facility] Comment on above: Performed By: #### E RTPF, CONNER, LIP, LIVP, TEGCR ####[address] [address] Negative Base Excess 15.6 mmol/L High 0.0-2.0 [facility] Comment on above: Performed By: #### E RTPF, CONNER, LIP, LIVP, TEGCR ####[address] [place] [address] Oxygen ppres (BldA) 198.0 mm[Hg] High 75-95 [facility] Comment on above: Performed By: #### E RTPF, CONNER, LIP, LIVP, TEGCR ####[address] [address] Oxygen saturation in Blood 98.8 % Normal 94-100 [facility] Comment on above: Performed By: #### E RTPF, CONNER, LIP, LIVP, TEGCR ####[address] [address] pCO2 47.1 mmHg High 32-45 [facility] Comment on above: Performed By: #### E RTPF, CONNER, LIP, LIVP, TEGCR ####[address] [address] pH (Bld) 7.092 [pH] Critically low 7.350-7.45 0 [facility] Comment on above: Performed By: #### E RTPF, CONNER, LIP, LIVP, TEGCR ####[address] [address] Chloride molar conc 112 mmol/L High 98-110 [facility] Comment on above: Performed By: #### E RTPF, CONNER, LIP, LIVP, TEGCR ####[address] [address] Hematocrit Auto Volume Fraction (Bld) 36.2 % Normal [facility] Comment on above: Performed By: #### E RTPF, CONNER, LIP, LIVP, TEGCR ####[address] [address] Hemoglobin mass conc (Bld) 11.7 g/dL Normal [facility] Comment on above: Performed By: #### E RTPF, CONNER, LIP, LIVP, TEGCR ####[address] [place] [address] Potassium molar conc 4.2 mmol/L Normal 3.6-5.[address] [facility] Comment on above: Performed By: #### E RTPF, CONNER, LIP, LIVP, TEGCR ####[address] [address] Sodium molar conc 130 mmol/L Low 136-145 [facility] Comment on above: Performed By: #### E RTPF, CONNER, LIP, LIVP, TEGCR ####[address] [address] PTon 01-20-2018 INR Coag RelTime (PPP) 1.6 {INR} Normal [facility] Comment on above: Result Comment: Ther apeutic Range: Moderate Anticoagulant Intensity: INR = 2.0-3.0 High Anticoagulant Intensity: INR = 2.5-3.5 Performed By: #### E RTPF, CONNER, LIP, LIVP, TEGCR ####[address] [address] Prothrombin time (PT) Coag time (PPP) 16.9 s High 9.0-12.0 [facility] Comment on above: Performed By: #### E RTPF, CONNER, LIP, LIVP, TEGCR ####[address] [address] Phosphorus, Inorg.on 018 Phosphorus, Inorg. 3.1 mg/dL Normal 2.5-4.5 [facility] Comment on above: Performed By: #### E RTPF, CONNER, LIP, LIVP, TEGCR ####[address] [address] Phosphorus, Inorg. 3.5 mg/dL Normal 2.5-4.5 [facility] Comment on above: Performed By: #### E RTPF, CONNER, LIP, LIVP, TEGCR ####[address] [address] Platelet Counton 01-20-2018 Platelets Auto #/vol (Bld) 142 10*3/uL Normal 138-453 [facility] Comment on above: Performed By: #### E RTPF, CONNER, LIP, LIVP, TEGCR ####[address] [address] Platelets,Transfuseon 2017 Platelets,Transfuse Unit Number [id number] Blood Component Type Leukocyte Reduced Irradiated Plateletpheresis Unit Division 00 Status of Unit TRANSFUSED Transfusion Status OK TO TRANSFUSE Normal [facility] Comment on above: Performed By: #### T PLT ####[address] [address] TEG, Rapid Citratedon 2017 ACT TEG 113.0 sec Normal 86-118 [facility] Comment on above: Performed By: #### E RTPF, CONNER, LIP, LIVP, TEGCR ####[address] [address] Angle, Rapid TEG 62.2 deg Low 64-80 [facility] Comment on above: Performed By: #### E RTPF, CONNER, LIP, LIVP, TEGCR ####[address] [address] EPL TEG 0.6 % Normal 0.0-15.0 [facility] Comment on above: Performed By: #### E RTPF, CONNER, LIP, LIVP, TEGCR ####[address] [address] Heparin Therapy: None Normal [facility] Comment on above: Performed By: #### E RTPF, CONNER, LIP, LIVP, TEGCR ####[address] [address] K (Kinetics) rTEG 2.4 min High 1.0-2.0 [facility] Comment on above: Performed By: #### E RTPF, CONNER, LIP, LIVP, TEGCR ####[address] [address] LY30 (Lysis) TEG 0.6 % Normal 0-8 [facility] Comment on above: Performed By: #### E RTPF, CONNER, LIP, LIVP, TEGCR ####[address] [address] [place] Rapid TEG 54.9 mm Normal 52-71 [facility] [facility] Comment on above: Performed By: #### E RTPF, CONNER, LIP, LIVP, TEGCR ####[address] [address] R(Reaction Time)rTEG 0.7 min Normal 0.0-1.[address] [facility] Comment on above: Performed By: #### E RTPF, CONNER, LIP, LIVP, TEGCR ####[address] [address] TEG Comment ACT is the only FDA approved component of the Rapid TEG. Normal [facility] Comment on above: Performed By: #### E RTPF, CONNER, LIP, LIVP, TEGCR ####[address] [address] ACT TEG 183.0 sec High 86-118 [facility] Comment on above: Performed By: #### E RTPF, CONNER, LIP, LIVP, TEGCR ####[address] [address] Angle, Rapid TEG 45.2 deg Low 64-80 [facility] Comment on above: Performed By: #### E RTPF, CONNER, LIP, LIVP, TEGCR ####[address] [address] EPL TEG 0 % Normal 0.0-15.0 [facility] Comment on above: Performed By: #### E RTPF, CONNER, LIP, LIVP, TEGCR ####[address] [address] Heparin Therapy: INFORMATION NOT PROVIDED Normal [facility] Comment on above: Performed By: #### E RTPF, CONNER, LIP, LIVP, TEGCR ####[address] [address] K (Kinetics) rTEG 4.6 min High 1.0-2.0 [facility] Comment on above: Performed By: #### E RTPF, CONNER, LIP, LIVP, TEGCR ####[address] [address] LY30 (Lysis) TEG 0 % Normal 0-8 [facility] Comment on above: Performed By: #### E RTPF, CONNER, LIP, LIVP, TEGCR ####[address] [address] MA Rapid TEG 41.9 mm Low 52-71 [facility] Comment on above: Performed By: #### E RTPF, CONNER, LIP, LIVP, TEGCR ####[address] [address] R(Reaction Time)rTEG 1.4 min High 0.0-1.[address] [facility] Comment on above: Performed By: #### E RTPF, CONNER, LIP, LIVP, TEGCR ####[address] [address] TEG Comment ACT is the only FDA approved component of the Rapid TEG. Normal [facility] Comment on above: Performed By: #### E RTPF, CONNER, LIP, LIVP, TEGCR ####[address] [address] UA w/Reflex Cultureon 2017 Acetoacetic Acid,Ur Negative Normal NEG [facility] Comment on above: Performed By: #### E RTPF, CONNER, LIP, LIVP, TEGCR ####[address] [address] Bilirubin, SemiQt,Ur Negative Normal NEG [facility] Comment on above: Performed By: #### E RTPF, CONNER, LIP, LIVP, TEGCR ####[address] [address] Color ORANGE Abnormal YEL [facility] Comment on above: Result Comment: INTE RPRET WITH CAUTION DUE TO INTENSE COLOR OF URINE. Performed By: #### E RTPF, CONNER, LIP, LIVP, TEGCR ####[address] [address] Glucose,Semi-qnt,Ur Negative Normal NEG [facility] Comment on above: Performed By: #### E RTPF, CONNER, LIP, LIVP, TEGCR ####[address] [address] Hemoglobin, Ur Negative Normal NEG [facility] Comment on above: Performed By: #### E RTPF, CONNER, LIP, LIVP, TEGCR ####[address] [address] Leuckocyte Esterase Negative Normal NEG [facility] Comment on above: Performed By: #### E RTPF, CONNER, LIP, LIVP, TEGCR ####[address] [address] Nitrite,Ur Negative Normal NEG [facility] Comment on above: Performed By: #### E RTPF, CONNER, LIP, LIVP, TEGCR ####[address] [address] PH,Ur 5.5 Normal 5.0-8.0 [facility] Comment on above: Performed By: #### E RTPF, CONNER, LIP, LIVP, TEGCR ####[address] [address] Protein, Semi-qnt,Ur Negative Normal NEG [facility] Comment on above: Performed By: #### E RTPF, CONNER, LIP, LIVP, TEGCR ####[address] [address] Spec. [place],Ur 1.027 Normal 1.005-1.03 0 [facility] Comment on above: Performed By: #### E RTPF, CONNER, LIP, LIVP, TEGCR ####[address] [address] Turbidity CLEAR Normal CLEAR [facility] Comment on above: Performed By: #### E RTPF, CONNER, LIP, LIVP, TEGCR ####[address] [address] Urobilinogen,Ur Normal Normal NORM [facility] Comment on above: Performed By: #### E RTPF, CONNER, LIP, LIVP, TEGCR ####[address] [address] Comment NOT REPORTED Normal [facility] Comment on above: Performed By: #### E RTPF, CONNER, LIP, LIVP, TEGCR ####[address] [address] Urinalysis,Microon 09-19-201 8 ----- Normal [facility] Comment on above: Performed By: #### E RTPF, CONNER, LIP, LIVP, TEGCR ####[address] [address] Casts 2 TO 5 HYALINE Normal 0-8 [facility] Comment on above: Result Comment: Refe rence range defined for non-centrifuged specimen. Performed By: #### E RTPF, CONNER, LIP, LIVP, TEGCR ####[address] [address] Epithelial cells 0 TO 2 Normal 0-5 [facility] Comment on above: Performed By: #### E RTPF, CONNER, LIP, LIVP, TEGCR ####[address] [address] RBC Test strip #/vol (U) None Normal 0-4 [facility] Comment on above: Result Comment: Refe rence range defined for non-centrifuged specimen. Performed By: #### E RTPF, CONNER, LIP, LIVP, TEGCR ####[address] [address] Urine WBC's None Normal 0-5 [facility] Comment on above: Performed By: #### E RTPF, CONNER, LIP, LIVP, TEGCR ####[address] [address] Amorphous Sediment NOT REPORTED Normal NONE [facility] Comment on above: Performed By: #### E RTPF, CONNER, LIP, LIVP, TEGCR ####[address] [address] Bacteria NOT REPORTED Normal NONE [facility] Comment on above: Performed By: #### E RTPF, CONNER, LIP, LIVP, TEGCR ####[address] [address] Crystals NOT REPORTED Normal NONE [facility] Comment on above: Performed By: #### E RTPF, CONNER, LIP, LIVP, TEGCR ####[address] [address] Epithelial, Renal NOT REPORTED Normal 0 [facility] Comment on above: Performed By: #### E RTPF, CONNER, LIP, LIVP, TEGCR ####[address] [address] Mucus Strands NOT REPORTED Normal NONE [facility] Comment on above: Performed By: #### E RTPF, CONNER, LIP, LIVP, TEGCR ####[address] [address] Other Observations NOT REPORTED Normal NREQ [facility] Comment on above: Performed By: #### E RTPF, CONNER, LIP, LIVP, TEGCR ####[address] [address] Trichomonas NOT REPORTED Normal NONE [facility] Comment on above: Performed By: #### E RTPF, CONNER, LIP, LIVP, TEGCR ####[address] [address] Yeast NOT REPORTED Normal NONE [facility] Comment on above: Performed By: #### E RTPF, CONNER, LIP, LIVP, TEGCR ####[address] [address] XR CHEST PORTABLEon 01-21-20 18 XR CHEST [...] by:NADEGE Wrightigned by:Cassie Guzmán MD01/20/18Final result Normal [facility] XR CHEST PORTABLE EXAMINATION:SINGLE X RAY VIEW [...] by:NADEGE Gonzalezigned by:Jonathan Rodríguez MD01/19/18Final result Normal [facility] Amylaseon 01-19-2018 Amylase enzyme act/vol 224 U/L High 28-100 [facility] Comment on above: Performed By: #### E RTPF, CONNER, LIP, LIVP, TEGCR ####[facility] [place] [address] CTA ABDOMEN PELVIS W CONTRAS Ton 01-19-2018 [...] by:NADEGE Velazquezigned by:Chandan Quintanilla MD9/18/18Final result Normal [facility] Calcium, Ionicon 01-19-2018 Calcium mass conc 1.13 mmol/L Normal 1.13-1.33 [facility] Comment on above: Performed By: #### O HP, IOCAL ####[address] [place] [address] Calcium mass conc 1.01 mmol/L Low 1.13-1.33 [facility] Comment on above: Performed By: #### O HP, IOCAL ####[address] [address] FFP, Transfuseon 01-19-2018 FFP, Transfuse Unit Number [id number] Blood Component Type Fresh Plasma Unit Division 00 Status of Unit TRANSFUSED Transfusion Status OK TO TRANSFUSE Unit Number [id number] Blood Component Type Fresh Plasma Unit Division 00 Status of Unit TRANSFUSED Transfusion Status OK TO TRANSFUSE Normal [facility] Comment on above: Performed By: #### E RTPF, CONNER, LIP, LIVP, TEGCR ####[address] [address] Lipaseon 01-19-2018 Lipase enzyme act/vol 98 U/L High 13-60 [facility] Comment on above: Performed By: #### E RTPF, CONNER, LIP, LIVP, TEGCR ####[address] [address] Liver Profileon 01-19-2018 Albumin mass conc 2.6 g/dL Low 3.5-5.2 [facility] Comment on above: Performed By: #### E RTPF, CONNER, LIP, LIVP, TEGCR ####[address] [place] [address] Albumin/Globulin mass ratio 1.3 {ratio} Normal 1.0-2.5 [facility] Comment on above: Performed By: #### E RTPF, CONNER, LIP, LIVP, TEGCR ####[facility] [place] [address] Alkaline Phos 77 U/L Normal 40-129 [facility] Comment on above: Performed By: #### E RTPF, CONNER, LIP, LIVP, TEGCR ####[address] [place] [address] ALT enzyme act/vol 18 U/L Normal 5-41 [facility] Comment on above: Performed By: #### E RTPF, CONNER, LIP, LIVP, TEGCR ####[address] [place] [address] AST enzyme act/vol 38 U/L Normal <40 [facility] Comment on above: Performed By: #### E RTPF, CONNER, LIP, LIVP, TEGCR ####[address] [address] Bilirubin Ql (U) 0.53 mg/dL Normal 0.3-1.2 [facility] Comment on above: Performed By: #### E RTPF, CONNER, LIP, LIVP, TEGCR ####[address] [place] [address] Bilirubin, Indirect 0.38 mg/dL Normal 0.00-1.00 [facility] Comment on above: Performed By: #### E RTPF, CONNER, LIP, LIVP, TEGCR ####[address] [place] [address] Bilirubin.direct mass conc 0.15 mg/dL Normal <0.31 [facility] Comment on above: Performed By: #### E RTPF, CONNER, LIP, LIVP, TEGCR ####[address] [place] [address] Protein mass conc 4.6 g/dL Low 6.4-8.3 [facility] Comment on above: Performed By: #### E RTPF, CONNER, LIP, LIVP, TEGCR ####[address] [place] [address] Globulin Calculated mass conc (S) NOT REPORTED Normal 1.5-3.8 [facility] Comment on above: Performed By: #### E RTPF, CONNER, LIP, LIVP, TEGCR ####[address] [address] Open Heart Panelon 8 Methemoglobin NOT REPORTED Normal 0.0-1.5 [facility] Comment on above: Performed By: #### E RTPF, CONNER, LIP, LIVP, TEGCR ####[address] [address] Mode NOT REPORTED Normal [facility] Comment on above: Performed By: #### E RTPF, CONNER, LIP, LIVP, TEGCR ####[address] [address] Notification Time NOT REPORTED Normal [facility] Comment on above: Performed By: #### E RTPF, CONNER, LIP, LIVP, TEGCR ####[address] [address] Notification: NOT REPORTED Normal [facility] Comment on above: Performed By: #### E RTPF, CONNER, LIP, LIVP, TEGCR ####[address] [address] O2 Device/Flow/% NOT REPORTED Normal [facility] Comment on above: Performed By: #### E RTPF, CONNER, LIP, LIVP, TEGCR ####[address] [address] Oxyhemoglobin NOT REPORTED Normal 95.0-98.0 [facility] Comment on above: Performed By: #### E RTPF, CONNER, LIP, LIVP, TEGCR ####[address] [address] pCO2 Adj'd for Temp NOT REPORTED Normal 32-45 [facility] Comment on above: Performed By: #### E RTPF, CONNER, LIP, LIVP, TEGCR ####[address] [address] PEEP/CPAP NOT REPORTED Normal [facility] Comment on above: Performed By: #### E RTPF, CONNER, LIP, LIVP, TEGCR ####[address] [address] pH Adjst'd for Temp. NOT REPORTED Normal 7.350-7 .45 0 [facility] Comment on above: Performed By: #### E RTPF, CONNER, LIP, LIVP, TEGCR ####[address] [address] pO2 Adjst'd for Temp NOT REPORTED Normal 75-95 [facility] Comment on above: Performed By: #### E RTPF, CONNER, LIP, LIVP, TEGCR ####[address] [address] Positive Base Excess NOT REPORTED Normal 0.0-2.0 [facility] Comment on above: Performed By: #### E RTPF, CONNER, LIP, LIVP, TEGCR ####[address] [address] PSV NOT REPORTED Normal [facility] Comment on above: Performed By: #### E RTPF, CONNER, LIP, LIVP, TEGCR ####[address] [address] Pt. Position NOT REPORTED Normal [facility] Comment on above: Performed By: #### E RTPF, CONNER, LIP, LIVP, TEGCR ####[address] [address] Set Rate NOT REPORTED Normal [facility] Comment on above: Performed By: #### E RTPF, CONNER, LIP, LIVP, TEGCR ####[address] [address] Site Drawn NOT REPORTED Normal [facility] Comment on above: Performed By: #### E RTPF, CONNER, LIP, LIVP, TEGCR ####[address] [address] Text for Respiratory NOT REPORTED Normal [facility] Comment on above: Performed By: #### E RTPF, CONNER, LIP, LIVP, TEGCR ####[address] [address] Total Hb NOT REPORTED Normal 12.0-16.0 [facility] Comment on above: Performed By: #### E RTPF, CONNER, LIP, LIVP, TEGCR ####[address] [address] Total Rate NOT REPORTED Normal [facility] Comment on above: Performed By: #### E RTPF, CONNER, LIP, LIVP, TEGCR ####[address] [address] [place] NOT REPORTED Normal [facility] Comment on above: Performed By: #### E RTPF, CONNER, LIP, LIVP, TEGCR ####[address] [address] Josue Test INFORMATION NOT PROVIDED Normal [facility] Comment on above: Performed By: #### O HP, IOCAL ####[address] [address] Body Temp. 37.0 Normal [facility] Comment on above: Performed By: #### O HP, IOCAL ####[address] [place] [address] Carboxy Hgb 4.3 % Normal 0-5 [facility] Comment on above: Result Comment: Refe rence Range:Non-Smokers 0-2%Average Smoker 2-4%Heavy Smoker <10% Performed By: #### O HP, IOCAL ####[facility] [address] [place] [address] Chloride molar conc 112 mmol/L High 98-110 [facility] Comment on above: Performed By: #### O HP, IOCAL ####[facility] [address] [place] [address] FIO2 INFORMATION NOT PROVIDED Normal [facility] Comment on above: Performed By: #### O HP, IOCAL ####[facility] [address] [place] [address] Glucose mass conc 71 mg/dL Low 75-110 [facility] Comment on above: Performed By: #### O HP, IOCAL ####[facility] [address] [place] [address] HCO3 molar conc (Bld) 11.7 mmol/L Low 22-27 [facility] Comment on above: Performed By: #### O HP, IOCAL ####[address] [place] [address] Hematocrit Auto Volume Fraction (Bld) 36.1 % Normal [facility] Comment on above: Performed By: #### O HP, IOCAL ####[address] [place] [address] Hemoglobin mass conc (Bld) 11.7 g/dL Normal [facility] Comment on above: Performed By: #### O HP, IOCAL ####[facility] [address] [place] [address] Negative Base Excess 17.8 mmol/L High 0.0-2.0 [facility] Comment on above: Performed By: #### O HP, IOCAL ####[address] [place] [address] Oxygen ppres (BldA) 214.0 mm[Hg] High 75-95 [facility] Comment on above: Performed By: #### O HP, IOCAL ####[address] [place] [address] Oxygen saturation in Blood 98.7 % Normal 94-100 [facility] Comment on above: Performed By: #### O HP, IOCAL ####[facility] [address] [place] [address] pCO2 42.6 mmHg Normal 32-45 [facility] Comment on above: Performed By: #### O HP, IOCAL ####[facility] [address]pp[address] [place] [address] pH (Bld) 7.069 [pH] Critically low 7.350-7.45 0 [facility] Comment on above: Performed By: #### O HP, IOCAL ####[facility] [address] [place] [address] Potassium molar conc 4.0 mmol/L Normal 3.6-5.[address] [facility] Comment on above: Performed By: #### O HP, IOCAL ####[facility] [address] [place] [address] Sodium molar conc 130 mmol/L Low 136-145 [facility] Comment on above: Performed By: #### O HP, IOCAL ####[facility] [address] [place] [address] Methemoglobin NOT REPORTED Normal 0.0-1.5 [facility] Comment on above: Performed By: #### O HP, IOCAL ####[facility] [address] [place] [address] Mode NOT REPORTED Normal [facility] Comment on above: Performed By: #### O HP, IOCAL ####[address] [place] [address] Notification Time NOT REPORTED Normal [facility] Comment on above: Performed By: #### O HP, IOCAL ####[facility] [address] [place] [address] Notification: NOT REPORTED Normal [facility] Comment on above: Performed By: #### O HP, IOCAL ####[facility] [address] [place] [address] O2 Device/Flow/% NOT REPORTED Normal [facility] Comment on above: Performed By: #### O HP, IOCAL ####[facility] [address] [place] [address] Oxyhemoglobin NOT REPORTED Normal 95.0-98.0 [facility] Comment on above: Performed By: #### O HP, IOCAL ####[facility] [address] [place] [address] pCO2 Adj'd for Temp NOT REPORTED Normal 32-45 [facility] Comment on above: Performed By: #### O HP, IOCAL ####[facility] [address] [place] [address] PEEP/CPAP NOT REPORTED Normal [facility] Comment on above: Performed By: #### O HP, IOCAL ####[facility] [address]az[address] [place] [address] pH Adjst'd for Temp. NOT REPORTED Normal 7.350-7 .45 0 [facility] Comment on above: Performed By: #### O HP, IOCAL ####[facility] [address] [place] [address] pO2 Adjst'd for Temp NOT REPORTED Normal 75-95 [facility] Comment on above: Performed By: #### O HP, IOCAL ####[facility] [address]ruzz[address] [place] [address] Positive Base Excess NOT REPORTED Normal 0.0-2.0 [facility] Comment on above: Performed By: #### O HP, IOCAL ####[facility] [address] [place] [address] PSV NOT REPORTED Normal [facility] Comment on above: Performed By: #### O HP, IOCAL ####[address] [place] [address] Pt. Position NOT REPORTED Normal [facility] Comment on above: Performed By: #### O HP, IOCAL ####[facility] [address] [place] [address] Set Rate NOT REPORTED Normal [facility] Comment on above: Performed By: #### O HP, IOCAL ####[address] [place] [address] Site Drawn NOT REPORTED Normal [facility] Comment on above: Performed By: #### O HP, IOCAL ####[facility] [address] [place] [address] Text for Respiratory NOT REPORTED Normal [facility] Comment on above: Performed By: #### O HP, IOCAL ####[facility] [address] [place] [address] Total Hb NOT REPORTED Normal 12.0-16.0 [facility] Comment on above: Performed By: #### O HP, IOCAL ####[facility] [address] [place] [address] Total Rate NOT REPORTED Normal [facility] Comment on above: Performed By: #### O HP, IOCAL ####[address] [place] [address] [place] NOT REPORTED Normal [facility] Comment on above: Performed By: #### O HP, IOCAL ####[facility] [address] [place] [address] Josue Test INFORMATION NOT PROVIDED Normal [facility] Comment on above: Performed By: #### O HP, IOCAL ####[facility] [address] [place] [address] Body Temp. 37.0 Normal [facility] Comment on above: Performed By: #### O HP, IOCAL ####[facility] [address] [place] [address] Carboxy Hgb 4.8 % Normal 0-5 [facility] Comment on above: Result Comment: Refe rence Range:Non-Smokers 0-2%Average Smoker 2-4%Heavy Smoker <10% Performed By: #### O HP, IOCAL ####[facility] [address]wh[address] [place] [address] Chloride molar conc 109 mmol/L Normal 98-110 [facility] Comment on above: Performed By: #### O HP, IOCAL ####[facility] L[address] [place] [address] FIO2 100 Normal [facility] Comment on above: Performed By: #### O HP, IOCAL ####[facility] [address]ox[address]toj[address] [place] [address] Glucose mass conc 90 mg/dL Normal 75-110 [facility] Comment on above: Performed By: #### O HP, IOCAL ####[address] [place] [address] HCO3 molar conc (Bld) 15.6 mmol/L Low 22-27 [facility] Comment on above: Performed By: #### O HP, IOCAL ####[facility] [address]zsirx80[address] [place] [address] Hematocrit Auto Volume Fraction (Bld) 42.6 % Normal [facility] Comment on above: Performed By: #### O HP, IOCAL ####[facility] [address]obthcls[address] [place] [address] Hemoglobin mass conc (Bld) 13.9 g/dL Normal [facility] Comment on above: Performed By: #### O HP, IOCAL ####[address] [address] Negative Base Excess 14.1 mmol/L High 0.0-2.0 [facility] Comment on above: Performed By: #### O HP, IOCAL ####[facility] [address]xqzuaf[address] [place] [address] Oxygen ppres (BldA) 406.0 mm[Hg] High 75-95 [facility] Comment on above: Performed By: #### O HP, IOCAL ####[facility] [address]zwi[address] [place] [address] Oxygen saturation in Blood 99.5 % Normal 94-100 [facility] Comment on above: Performed By: #### O HP, IOCAL ####[facility] [address]ctta[address]86 [place] [address] pCO2 51.3 mmHg High 32-45 [facility] Comment on above: Performed By: #### O HP, IOCAL ####[facility] [address] [place] [address] pH (Bld) 7.109 [pH] Critically low 7.350-7.45 0 [facility] Comment on above: Performed By: #### O HP, IOCAL ####[facility] Bnc[address]zn[address]ubzb68[address] [place] [address] Potassium molar conc 4.2 mmol/L Normal 3.6-5.[address] [facility] Comment on above: Performed By: #### O HP, IOCAL ####[facility] [address]un[address] [place] [address] Sodium molar conc 129 mmol/L Low 136-145 [facility] [facility] Comment on above: Performed By: #### O HP, IOCAL ####[facility] [address] [place] [address] Methemoglobin NOT REPORTED Normal 0.0-1.5 [facility] Comment on above: Performed By: #### O HP, IOCAL ####[facility] Exjfwjavivet6309 [place] [address] Mode NOT REPORTED Normal [facility] Comment on above: Performed By: #### O HP, IOCAL ####[facility] [address]wtmfzcbdh7236 [place] [address] Notification Time NOT REPORTED Normal [facility] Comment on above: Performed By: #### O HP, IOCAL ####[facility] [address]qfgzkwdlbu3482 [place] [address] Notification: NOT REPORTED Normal [facility] Comment on above: Performed By: #### O HP, IOCAL ####[facility] Tjcoqovwamnt6092 [place] [address] O2 Device/Flow/% NOT REPORTED Normal [facility] Comment on above: Performed By: #### O HP, IOCAL ####[facility] Mdjlrlbflmoi8707 [place] [address] Oxyhemoglobin NOT REPORTED Normal 95.0-98.0 [facility] Comment on above: Performed By: #### O HP, IOCAL ####[facility] Gxwtrjorbpdv32[address] [place] [address] pCO2 Adj'd for Temp NOT REPORTED Normal 32-45 [facility] Comment on above: Performed By: #### O HP, IOCAL ####[facility] [address]emdznjudv73[address] [place] [address] PEEP/CPAP NOT REPORTED Normal [facility] Comment on above: Performed By: #### O HP, IOCAL ####[facility] Tnyhayqhxfjq6510 [place] [address] pH Adjst'd for Temp. NOT REPORTED Normal 7.350-7 .45 0 [facility] Comment on above: Performed By: #### O HP, IOCAL ####[facility] Rfvokuhmkmob9427 [place] [address] pO2 Adjst'd for Temp NOT REPORTED Normal 75-95 [facility] Comment on above: Performed By: #### O HP, IOCAL ####[facility] [address]ktwzxbifmw8446 [place] [address] Positive Base Excess NOT REPORTED Normal 0.0-2.0 [facility] Comment on above: Performed By: #### O HP, IOCAL ####[facility] [address] [place] [address] PSV NOT REPORTED Normal [facility] Comment on above: Performed By: #### O HP, IOCAL ####[facility] [address] [place] [address] Pt. Position NOT REPORTED Normal [facility] Comment on above: Performed By: #### O HP, IOCAL ####[facility] [address]oln[address]uriry3382 [place] [address] Set Rate NOT REPORTED Normal [facility] Comment on above: Performed By: #### O HP, IOCAL ####[facility] [address]wsxbq[address] [place] [address] Site Drawn NOT REPORTED Normal [facility] Comment on above: Performed By: #### O HP, IOCAL ####[facility] T[address]fhuztq1505 [place] [address] Text for Respiratory NOT REPORTED Normal Me [facility] Comment on above: Performed By: #### O HP, IOCAL ####[facility] Smawfslsbkaf8964 [place] [address] Total Hb NOT REPORTED Normal 12.0-16.0 [facility] Comment on above: Performed By: #### O HP, IOCAL ####[facility] [address] [place] [address] Total Rate NOT REPORTED Normal [facility] Comment on above: Performed By: #### O HP, IOCAL ####[facility] [address] [place] [address] [place] NOT REPORTED Normal [facility] Comment on above: Performed By: #### O HP, IOCAL ####[address] [address] Surgical Pathologyon 018 Surgical Pathology (NOTE)[id number] Y LABORATORIESCONSULTING PATHOLOGISTS CORPORATIONANATOMIC AUZWAARTN[address] [place] [phone] Fax: SURGICAL PATHOLOGY CONSULTATIONPatient Name: [facility]: [id number] Number: [id number]: 01/19/2018Received: 01/20/2018Reported: 01/21/2018 13:48-- Diagnosis --1. TERMINAL [...] or lesions or perforations are grossly identified. Head Mixer sections from the larger segment submitted as follows: A terminal ileum resection margin between (proximal), B distalresection margin, C-D ambulatory services representative sections from area of theopening, E ambulatory services representative section from submucosal hematoma, F ileocecal valve, G tip of appendix bisected, H representativesection from the appendix, I ambulatory services representative section from superficialulcerated mucosa, J ambulatory services representative section from hyperemic colonmucosa, K one resection margin of smaller fragment, L the othermargin of smaller fragment and ambulatory services representative section from the smallerfragment.2. ALEJO FLOYD, [...] and no masses orlesions are grossly identified. Head Mixer sections submitted asfollows: A area of laceration, [...] 7 x 4 x 1.5cm maximum thickness. Head Mixer section from the fibrofattytissue surrounding the larger fragment is submitted in cassette A. Remainder of specimen is returned to original container. Microscopic DescriptionMicroscopic examination performed. Normal [facility] Comment on above: Performed By: #### P PPVS ####[facility] [address] [place] [address] TEG, Rapid Citratedon 2017 ACT TEG 113.0 sec Normal 86-118 [facility] Comment on above: Performed By: #### E RTPF, CONNER, LIP, LIVP, TEGCR ####[facility] [address] [place] [address] [id number] Angle, Rapid TEG 52.6 deg Low 64-80 [facility] Comment on above: Performed By: #### E RTPF, CONNER, LIP, LIVP, TEGCR ####[facility] [address] [place] [address] EPL TEG 1.0 % Normal 0.0-15.0 [facility] Comment on above: Performed By: #### E RTPF, CONNER, LIP, LIVP, TEGCR ####[place] [address] Heparin Therapy: UNKNOWN Normal [facility] Comment on above: Performed By: #### E RTPF, CONNER, LIP, LIVP, TEGCR ####[place] [address] K (Kinetics) rTEG 3.6 min High 1.0-2.0 [facility] Comment on above: Performed By: #### E RTPF, CONNER, LIP, LIVP, TEGCR ####[place] [address] LY30 (Lysis) TEG 1.0 % Normal 0-8 [facility] Comment on above: Performed By: #### E RTPF, CONNER, LIP, LIVP, TEGCR ####[place] [address] MA Rapid TEG 51.4 mm Low 52-71 [facility] Comment on above: Performed By: #### E RTPF, CONNER, LIP, LIVP, TEGCR ####[place] [address] R(Reaction Time)rTEG 0.7 min Normal 0.0-1.[address] [facility] Comment on above: Performed By: #### E RTPF, CONNER, LIP, LIVP, TEGCR ####[place] [address] TEG Comment ACT is the only FDA approved component of the Rapid TEG. Normal [facility] Comment on above: Performed By: #### E RTPF, CONNER, LIP, LIVP, TEGCR ####[address] [place] [address] Trauma Profileon 01-19-2018 Urea nitrogen mass conc 6 mg/dL Normal 6-20 [facility] Comment on above: Result Comment: QA F LAGS AND/OR RANGES MODIFIED BY DEMOGRAPHIC UPDATE ON 01/19 AT 1953 Performed By: #### E RTPF, CONNER, LIP, LIVP, TEGCR ####[address] [place] [address] Anion gap 3 molar conc 13 mmol/L Normal 9-17 [facility] Comment on above: Performed By: #### E RTPF, CONNER, LIP, LIVP, TEGCR ####[address] [address] Chloride molar conc 101 mmol/L Normal 98-107 [facility] Comment on above: Performed By: #### E RTPF, CONNER, LIP, LIVP, TEGCR ####[address] [address] CO2 molar conc 17 mmol/L Low 20-31 [facility] Comment on above: Performed By: #### E RTPF, CONNER, LIP, LIVP, TEGCR ####[address] [place] [address] Creatinine mass conc 0.55 mg/dL Low 0.70-1.[address] [facility] Comment on above: Performed By: #### E RTPF, CONNER, LIP, LIVP, TEGCR ####[facility] [address] [place] [address] Ethanol mass conc 277 mg/dL High <10 [facility] Comment on above: Performed By: #### E RTPF, CONNER, LIP, LIVP, TEGCR ####[address] [place] [address] Ethanol percent 0.277 % Normal [facility] Comment on above: Performed By: #### E RTPF, CONNER, LIP, LIVP, TEGCR ####[facility] [place] [address] Glucose mass conc 95 mg/dL Normal 70-99 [facility] Comment on above: Performed By: #### E RTPF, CONNER, LIP, LIVP, TEGCR ####[address] [address] Potassium molar conc 4.7 mmol/L Normal 3.7-5.[address] [facility] Comment on above: Performed By: #### E RTPF, CONNER, LIP, LIVP, TEGCR ####[address] [address] Sodium molar conc 131 mmol/L Low 135-144 [facility] Comment on above: Performed By: #### E RTPF, CONNER, LIP, LIVP, TEGCR ####[address] [address] aPTT Coag time (Bld) 26.2 s Normal 20.5-30.[address] [facility] Comment on above: Performed By: #### E RTPF, CONNER, LIP, LIVP, TEGCR ####[address] [address] INR Coag RelTime (PPP) 1.1 {INR} Normal [facility] Comment on above: Result Comment: Ther apeutic Range: Moderate Anticoagulant Intensity: INR = 2.0-3.0 High Anticoagulant Intensity: INR = 2.5-3.5 Performed By: #### E RTPF, CONNER, LIP, LIVP, TEGCR ####[address] [address] Prothrombin time (PT) Coag time (PPP) 11.9 s Normal 9.0-12.0 [facility] Comment on above: Performed By: #### E RTPF, CONNER, LIP, LIVP, TEGCR ####[address] [address] Erythrocyte distribution width Auto Ratio (RBC) 14.3 % Normal 11.8-14.4 [facility] Comment on above: Performed By: #### E RTPF, CONNER, LIP, LIVP, TEGCR ####[address] [address] Hematocrit Auto Volume Fraction (Bld) 42.9 % Normal 40.7-50.3 [facility] Comment on above: Performed By: #### E RTPF, CONNER, LIP, LIVP, TEGCR ####[address] [address] Hemoglobin mass conc (Bld) 14.0 g/dL Normal 13.0-17.0 [facility] Comment on above: Performed By: #### E RTPF, CONNER, LIP, LIVP, TEGCR ####[address] [address] MCH Auto Entitic mass (RBC) 32.0 pg Normal 25.2-33.5 [facility] Comment on above: Performed By: #### E RTPF, CONNER, LIP, LIVP, TEGCR ####[address] [address] MCHC Auto mass conc (RBC) 32.6 g/dL Normal 28.4-34.8 [facility] Comment on above: Performed By: #### E RTPF, CONNER, LIP, LIVP, TEGCR ####[address] [address] MCV Auto Entitic volume (RBC) 97.9 fL Normal 82.6-102.9 [facility] Comment on above: Performed By: #### E RTPF, CONNER, LIP, LIVP, TEGCR ####[address] [address] NRBC Automated 0.0 per 100 WBC Normal 0.0 [facility] Comment on above: Performed By: #### E RTPF, CONNER, LIP, LIVP, TEGCR ####[address] [address] Platelet mean volume Auto Entitic volume (Bld) 9.4 fL Normal 8.1-13.5 [facility] Comment on above: Performed By: #### E RTPF, CONNER, LIP, LIVP, TEGCR ####[address] [address] Platelets Auto #/vol (Bld) 193 10*3/uL Normal 138-453 [facility] Comment on above: Performed By: #### E RTPF, CONNER, LIP, LIVP, TEGCR ####[address] [address] RBC Auto #/vol (Bld) 4.38 10*6/uL Normal 4.21-5.77 [facility] Comment on above: Performed By: #### E RTPF, CONNER, LIP, LIVP, TEGCR ####[address] [address] WBC Auto #/vol (Bld) 3.6 10*3/uL Normal 3.5-11.3 [facility] Comment on above: Performed By: #### E RTPF, CONNER, LIP, LIVP, TEGCR ####[address] [address] Body Temp. 37.0 Normal [facility] Comment on above: Performed By: #### E RTPF, CONNER, LIP, LIVP, TEGCR ####[address] [address] Carboxy Hgb 5.7 % High 0-5 [facility] Comment on above: Result Comment: Refe rence Range:Non-Smokers 0-2%Average Smoker 2-4%Heavy Smoker <10% Performed By: #### E RTPF, CONNER, LIP, LIVP, TEGCR ####[address] [address] FIO2 INFORMATION NOT PROVIDED Normal [facility] Comment on above: Performed By: #### E RTPF, CONNER, LIP, LIVP, TEGCR ####[address] [address] HCO3 molar conc (Bld) 18.9 mmol/L Low 24-30 [facility] Comment on above: Performed By: #### E RTPF, CONNER, LIP, LIVP, TEGCR ####[address] [address] Negative Base Excess 10.2 mmol/L High 0.0-2.0 [facility] Comment on above: Performed By: #### E RTPF, CONNER, LIP, LIVP, TEGCR ####[address] [address] Oxygen ppres (BldA) 40.2 mm[Hg] Normal 30-[address] [facility] Comment on above: Performed By: #### E RTPF, CONNER, LIP, LIVP, TEGCR ####[address] [address] Oxygen saturation in Blood 58.1 % Low 60.0-85.0 [facility] Comment on above: Performed By: #### E RTPF, CONNER, LIP, LIVP, TEGCR ####[address] [place] [address] pCO2 55.7 High 39-55 [facility] Comment on above: Performed By: #### E RTPF, CONNER, LIP, LIVP, TEGCR ####[address] [address] pH (Bld) 7.157 [pH] Critically low 7.320-7.42 0 [facility] Comment on above: Performed By: #### E RTPF, CONNER, LIP, LIVP, TEGCR ####[address] [address] Blood Bank BILL FOR SERVICES PERFORMED Normal [facility] Comment on above: Performed By: #### E RTPF, CONNER, LIP, LIVP, TEGCR ####[address] [address] (cont.) NOT REPORTED Normal [facility] Comment on above: Performed By: #### E RTPF, CONNER, LIP, LIVP, TEGCR ####[address] [address] Josue Test NOT REPORTED Normal [facility] Comment on above: Performed By: #### E RTPF, CONNER, LIP, LIVP, TEGCR ####[address] [address] GFR, Amer NOT REPORTED Normal >60 [facility] Comment on above: Performed By: #### E RTPF, CONNER, LIP, LIVP, TEGCR ####[address] [address] GFR,non Amer NOT REPORTED Normal >60 [facility] Comment on above: Performed By: #### E RTPF, CONNER, LIP, LIVP, TEGCR ####[address] [address] Methemoglobin NOT REPORTED Normal 0.0-1.5 [facility] Comment on above: Performed By: #### E RTPF, CONNER, LIP, LIVP, TEGCR ####[address] [address] Mode NOT REPORTED Normal [facility] Comment on above: Performed By: #### E RTPF, CONNER, LIP, LIVP, TEGCR ####[address] [address] Notification Time NOT REPORTED Normal [facility] Comment on above: Performed By: #### E RTPF, CONNER, LIP, LIVP, TEGCR ####[address] [address] Notification: NOT REPORTED Normal [facility] Comment on above: Performed By: #### E RTPF, CONNER, LIP, LIVP, TEGCR ####[address] [address] O2 Device/Flow/% NOT REPORTED Normal [facility] Comment on above: Performed By: #### E RTPF, CONNER, LIP, LIVP, TEGCR ####[address] [address] Oxyhemoglobin NOT REPORTED Normal 95.0-98.0 [facility] Comment on above: Performed By: #### E RTPF, CONNER, LIP, LIVP, TEGCR ####[address] [address] Pco2 Adj'd for Temp. NOT REPORTED Normal 39-55 [facility] Comment on above: Performed By: #### E RTPF, CONNER, LIP, LIVP, TEGCR ####[address] [address] PEEP/CPAP NOT REPORTED Normal [facility] Comment on above: Performed By: #### E RTPF, CONNER, LIP, LIVP, TEGCR ####[address] [address] pH Adjst'd for Temp. NOT REPORTED Normal 7.320-7 .42 0 [facility] Comment on above: Performed By: #### E RTPF, CONNER, LIP, LIVP, TEGCR ####[address] [address] pO2 Adj'd for Temp. NOT REPORTED Normal 30-50 [facility] Comment on above: Performed By: #### E RTPF, CONNER, LIP, LIVP, TEGCR ####[address] [address] Positive Base Excess NOT REPORTED Normal 0.0-2.0 [facility] Comment on above: Performed By: #### E RTPF, CONNER, LIP, LIVP, TEGCR ####[address] [address] PSV NOT REPORTED Normal [facility] Comment on above: Performed By: #### E RTPF, CONNER, LIP, LIVP, TEGCR ####[address] [address] Pt. Position NOT REPORTED Normal [facility] Comment on above: Performed By: #### E RTPF, CONNER, LIP, LIVP, TEGCR ####[address] [address] Set Rate NOT REPORTED Normal [facility] Comment on above: Performed By: #### E RTPF, CONNER, LIP, LIVP, TEGCR ####[address] [address] Site Drawn NOT REPORTED Normal [facility] Comment on above: Performed By: #### E RTPF, CONNER, LIP, LIVP, TEGCR ####[address] [address] Staging: NOT REPORTED Normal [facility] Comment on above: Performed By: #### E RTPF, CONNER, LIP, LIVP, TEGCR ####[address] [address] Text for Respiratory NOT REPORTED Normal Me [facility] Comment on above: Performed By: #### E RTPF, CONNER, LIP, LIVP, TEGCR ####[address] [address] Total Hb NOT REPORTED Normal 12.0-16.0 [facility] Comment on above: Performed By: #### E RTPF, CONNER, LIP, LIVP, TEGCR ####[address] [place] [address] Total Rate NOT REPORTED Normal [facility] Comment on above: Performed By: #### E RTPF, CONNER, LIP, LIVP, TEGCR ####[address] [address] [place] NOT REPORTED Normal [facility] Comment on above: Performed By: #### E RTPF, CONNER, LIP, LIVP, TEGCR ####[address] [address] Type + Screenon 01-19-2018 Type + Screen Sample Expiration Arm Band Number [id number] ABO/Rh(D) A POSITIVE Antibody Screen NEGATIVE Unit Number [id number] Blood Component Type Leukocyte Reduced Red Cell Unit Division 00 Status of Unit TRANSFUSED Transfusion Status OK TO TRANSFUSE Crossmatch Result COMPATIBLE Unit Number [id number] Blood Component Type Leukocyte Reduced Red Cell Unit Division 00 Status of Unit REL FROM ALLOC Transfusion Status OK TO TRANSFUSE Crossmatch Result COMPATIBLE Unit Number [id number] Blood Component Type Leukocyte Reduced Red Cell Unit Division 00 Status of Unit REL FROM ALLOC Transfusion Status OK TO TRANSFUSE Crossmatch Result COMPATIBLE Unit Number [id number] Blood Component Type Leukocyte Reduced Red Cell Unit Division 00 Status of Unit REL FROM ALLOC Transfusion Status OK TO TRANSFUSE Crossmatch Result COMPATIBLE Unit Number [id number] Blood Component Type Leukocyte Reduced Red Cell Unit Division 00 Status of Unit TRANSFUSED Transfusion Status OK TO TRANSFUSE Crossmatch Result COMPATIBLE Unit Number [id number] Blood Component Type Leukocyte Reduced Red Cell Unit Division 00 Status of Unit REL FROM ALLOC Transfusion Status OK TO TRANSFUSE Crossmatch Result COMPATIBLE Normal [facility] Comment on above: Performed By: #### E RTPF, CONNER, LIP, LIVP, TEGCR ####[facility] [address] [place], [place] [id number] Vital Signs Date Time Vital Sign Value Performing Clinician Faci lity 06-21-2024 13:01-0500 Body mass index (BMI) [Ratio] 18.79 kg/m2 DENIA Carpenter MD Work Phone: [facility] 06-21-2024 13:01-0500 Body temperature 97.9 [degF] DENIA Carpenter MD Work Phone: [facility] 06-21-2024 13:01-0500 Body weight 59.4 kg DENIA Carpenter MD Work Phone: [facility] 06-21-2024 13:01-0500 Diastolic blood pressure 58 mm[Hg] DENIA Carpenter MD Work Phone: [facility] 06-21-2024 13:01-0500 Heart rate 95 /min DENIA Carpenter MD Work Phone: [facility] 06-21-2024 13:01-0500 Respiratory rate 18 /min DENIA Carpenter MD Work Phone: [facility] 06-21-2024 13:01-0500 SaO2% (BldA) [Mass fraction] 96 % DENIA Carpenter MD Work Phone: [facility] 06-21-2024 13:01-0500 Systolic blood pressure 110 mm[Hg] DENIA Carpenter MD Work Phone: [facility] 06-10-2024 14:47-0500 Body height 177.8 cm Hebert Miguel MD Work Phone: [facility] 06-10-2024 14:47-0500 Body mass index (BMI) [Ratio] 20.09 kg/m2 Hebert Miguel MD Work Phone: [facility] 06-10-2024 14:47-0500 Body weight 63.5 kg Hebert Miguel MD Work Phone: [facility] 06-01-2024 13:32-0500 Body height 177.8 cm Gildardo Lacy MD Work Phone: [facility] 06-01-2024 13:32-0500 Body mass index (BMI) [Ratio] 18.37 kg/m2 Gildardo Lacy MD Work Phone: [facility] 06-01-2024 13:32-0500 Body temperature 97.81 [degF] Gildardo Lacy MD Work Phone: [facility] 06-01-2024 13:32-0500 Body weight 58.06 kg Gildardo Lacy MD Work Phone: [facility] 06-01-2024 13:32-0500 Diastolic blood pressure 52 mm[Hg] Gildardo Lacy MD Work Phone: [facility] 06-01-2024 13:32-0500 Heart rate 107 /min Gildardo Lacy MD Work Phone: [facility] 06-01-2024 13:32-0500 Respiratory rate 24 /min Gildardo Lacy MD Work Phone: [facility] 06-01-2024 13:32-0500 SaO2% (BldA) [Mass fraction] 90 % Gildardo Lacy MD Work Phone: [facility] 06-01-2024 13:32-0500 Systolic blood pressure 114 mm[Hg] Gildardo Lacy MD Work Phone: [facility] 04-12-2024 13:24-0500 Body height 177.8 cm Gildardo Lacy MD Work Phone: [facility] 04-12-2024 13:24-0500 Body mass index (BMI) [Ratio] 19.8 kg/m2 Gildardo Lacy MD Work Phone: [facility] 04-12-2024 13:24-0500 Body temperature 98.4 [degF] Gildardo Lacy MD Work Phone: [facility] 04-12-2024 13:24-0500 Body weight 62.6 kg Gildardo Lacy MD Work Phone: [facility] 04-12-2024 13:24-0500 Diastolic blood pressure 66 mm[Hg] Gildardo Lacy MD Work Phone: [facility] 04-12-2024 13:24-0500 Heart rate 111 /min Gildardo Lacy MD Work Phone: [facility] 04-12-2024 13:24-0500 Respiratory rate 20 /min Gildardo Lacy MD Work Phone: [facility] 04-12-2024 13:24-0500 SaO2% (BldA) [Mass fraction] 92 % Gildardo Lacy MD Work Phone: [facility] 04-12-2024 13:24-0500 Systolic blood pressure 140 mm[Hg] Gildardo Lacy MD Work Phone: [facility] 02-29-2024 09:56-0400 Body height 177.8 cm Gildardo Lacy MD Work Phone: [facility] 02-29-2024 09:56-0400 Body mass index (BMI) [Ratio] 18.65 kg/m2 Gildardo Lacy MD Work Phone: [facility] 02-29-2024 09:56-0400 Body temperature 97.81 [degF] Gildardo Lacy MD Work Phone: [facility] 02-29-2024 09:56-0400 Body weight 58.97 kg Gildardo Lacy MD Work Phone: [facility] 02-29-2024 09:56-0400 Diastolic blood pressure 66 mm[Hg] Gildardo Lacy MD Work Phone: [facility] 02-29-2024 09:56-0400 Heart rate 92 /min Gildardo Lacy MD Work Phone: [facility] 02-29-2024 09:56-0400 Respiratory rate 18 /min Gildardo Lacy MD Work Phone: [facility] 02-29-2024 09:56-0400 SaO2% (BldA) [Mass fraction] 97 % Gildardo Lacy MD Work Phone: [facility] 02-29-2024 09:56-0400 Systolic blood pressure 150 mm[Hg] Gildardo Lacy MD Work Phone: [facility] 02-02-2024 09:35-0400 Body height 177.8 cm Cassie PHAN Work Phone: [facility] 02-02-2024 09:35-0400 Body mass index (BMI) [Ratio] 20.09 kg/m2 Cassie Hood PA Work Phone: [facility] 02-02-2024 09:35-0400 Body weight 63.5 kg Cassie Hood PA Work Phone: [facility] 12-22-2023 14:55-0400 Body height 178.7 cm Esdras Cash MD Work Phone: [facility] 12-22-2023 14:55-0400 Body mass index (BMI) [Ratio] 19.32 kg/m2 Esdras Cash MD Work Phone: [facility] 12-22-2023 14:55-0400 Body temperature 98.2 [degF] Esdras Cash MD Work Phone: [facility] 12-22-2023 14:55-0400 Body weight 61.69 kg Esdras Cash MD Work Phone: [facility] 12-22-2023 14:55-0400 Diastolic blood pressure 89 mm[Hg] Esdras Cash MD Work Phone: [facility] 12-22-2023 14:55-0400 Heart rate 104 /min Esdras Cash MD Work Phone: [facility] 12-22-2023 14:55-0400 Respiratory rate 18 /min Esdras Cash MD Work Phone: [facility] 12-22-2023 14:55-0400 SaO2% (BldA) [Mass fraction] 95 % Esdras Cash MD Work Phone: [facility] 12-22-2023 14:55-0400 Systolic blood pressure 126 mm[Hg] Esdras Cash MD Work Phone: [facility] 12-22-2023 14:35-0400 Body mass index (BMI) [Ratio] 19.38 kg/m2 DENIA Carpenter MD Work Phone: [facility] 12-22-2023 14:35-0400 Body temperature 98.2 [degF] DENIA Carpenter MD Work Phone: [facility] 12-22-2023 14:35-0400 Body weight 61.9 kg DENIA Carpenter MD Work Phone: [facility] 12-22-2023 14:35-0400 Diastolic blood pressure 89 mm[Hg] DENIA Carpenter MD Work Phone: [facility] 12-22-2023 14:35-0400 Heart rate 104 /min DENIA Carpenter MD Work Phone: [facility] 12-22-2023 14:35-0400 Respiratory rate 18 /min DENIA Carpenter MD Work Phone: [facility] 12-22-2023 14:35-0400 SaO2% (BldA) [Mass fraction] 95 % DENIA Carpenter MD Work Phone: [facility] 12-22-2023 14:35-0400 Systolic blood pressure 126 mm[Hg] DENIA Carpenter MD Work Phone: [facility] 11-17-2023 10:29-0400 Body height 177.8 cm Carmen Neely MD Work Phone: [facility] 11-17-2023 10:29-0400 Body mass index (BMI) [Ratio] 18.65 kg/m2 Carmen Neely MD Work Phone: [facility] 11-17-2023 10:29-0400 Body weight 58.97 kg Carmen Neely MD Work Phone: [facility] 11-17-2023 10:29-0400 Diastolic blood pressure 78 mm[Hg] Carmen Neely MD Work Phone: [facility] 11-17-2023 10:29-0400 Heart rate 88 /min Carmen Neely MD Work Phone: [facility] 11-17-2023 10:29-0400 Systolic blood pressure 138 mm[Hg] Carmen Neely MD Work Phone: [facility] 08-18-2023 14:20-0400 Body height 178.7 cm Esdras Cash MD Work Phone: [facility] 08-18-2023 14:20-0400 Body temperature 97.5 [degF] Esdras Cash MD Work Phone: [facility] 08-18-2023 14:20-0400 Body weight 67.7 kg Esdras Cash MD Work Phone: [facility] 08-18-2023 14:20-0400 Diastolic blood pressure 88 mm[Hg] Esdras Cash MD Work Phone: [facility] 08-18-2023 14:20-0400 Heart rate 107 /min Esdras Cash MD Work Phone: [facility] 08-18-2023 14:20-0400 Respiratory rate 18 /min Esdras Cash MD Work Phone: [facility] 08-18-2023 14:20-0400 SaO2% (BldA) [Mass fraction] 94 % Esdras Cash MD Work Phone: [facility] 08-18-2023 14:20-0400 Systolic blood pressure 161 mm[Hg] Esdras Cash MD Work Phone: [facility] 08-18-2023 14:00-0400 Body mass index (BMI) [Ratio] 21.2 kg/m2 DENIA Carpenter MD Work Phone: [facility] 08-18-2023 14:00-0400 Body temperature 98.49 [degF] DENIA Carpenter MD Work Phone: [facility] 08-18-2023 14:00-0400 Diastolic blood pressure 83 mm[Hg] DENIA Carpenter MD Work Phone: [facility] 08-18-2023 14:00-0400 Heart rate 104 /min DENIA Carpenter MD Work Phone: [facility] 08-18-2023 14:00-0400 SaO2% (BldA) [Mass fraction] 93 % DENIA Carpenter MD Work Phone: [facility] 08-18-2023 14:00-0400 Systolic blood pressure 147 mm[Hg] DENIA Carpenter MD Work Phone: [facility] 05-06-2023 11:18-0500 Body height 177.8 cm Carmen Neely MD Work Phone: [facility] 05-06-2023 11:18-0500 Body mass index (BMI) [Ratio] 21.67 kg/m2 Carmen Neely MD Work Phone: [facility] 05-06-2023 11:18-0500 Body weight 68.49 kg Carmen Neely MD Work Phone: [facility] 05-06-2023 11:18-0500 Diastolic blood pressure 76 mm[Hg] Carmen Neely MD Work Phone: [facility] 05-06-2023 11:18-0500 Heart rate 72 /min Carmen Neely MD Work Phone: [facility] 05-06-2023 11:18-0500 Systolic blood pressure 118 mm[Hg] Carmen Neely MD Work Phone: [facility] 06-10-2022 10:18-0500 Body height 177.8 cm Gildardo A Naderer Work Phone: [facility] [address] DO Work Phone: 06-10-2022 10:18-0500 Body mass index (BMI) [Ratio] 25.83 kg/m2 Gildardo A Naderer Work Phone: [facility] [address] DO Work Phone: 06-10-2022 10:18-0500 Body surface area Derived from formula 2 m2 Gildardo A Naderer Work Phone: [facility] [address] DO Work Phone: 06-10-2022 10:18-0500 Body weight 81.65 kg Gildardo A Naderer Work Phone: [facility] [address] DO Work Phone: 06-10-2022 10:18-0500 Diastolic blood pressure 74 mm[Hg] Gildardo Butler Naderer Work Phone: [facility] [address] DO Work Phone: 06-10-2022 10:18-0500 Heart rate 75 /min Gildardo A Naderer Work Phone: [facility] [address] DO Work Phone: 06-10-2022 10:18-0500 Systolic blood pressure 126 mm[Hg] Gildardo A Naderer Work Phone: [facility] [address] DO Work Phone: 05-20-2022 10:08-0500 Body height 178.7 cm Esdras Cash MD Work Phone: [facility] 01-17-2023 10:08-0500 Body temperature 97.7 [degF] Esdras Cash MD Work Phone: [facility] 05-20-2022 10:08-0500 Body weight 78.65 kg Esdras Cash MD Work Phone: [facility] 05-20-2022 10:08-0500 Diastolic blood pressure 75 mm[Hg] Esdras Cash MD Work Phone: [facility] 05-20-2022 10:08-0500 Heart rate 82 /min Esdras Cash MD Work Phone: [facility] 05-20-2022 10:08-0500 Respiratory rate 16 /min Esdras Cash MD Work Phone: [facility] 05-20-2022 10:08-0500 SaO2% (BldA) [Mass fraction] 96 % Esdras Cash MD Work Phone: [facility] 05-20-2022 10:08-0500 Systolic blood pressure 128 mm[Hg] Esdras Cash MD Work Phone: [facility] 04-17-2022 11:11-0500 Body temperature 97.5 [degF] DENIA Carpenter MD Work Phone: [facility] 04-17-2022 11:11-0500 Body weight 78.93 kg DENIA Carpenter MD Work Phone: [facility] 04-17-2022 11:11-0500 Diastolic blood pressure 60 mm[Hg] DENIA Carpenter MD Work Phone: [facility] 04-17-2022 11:11-0500 Heart rate 74 /min DENIA Carpenter MD Work Phone: [facility] 04-17-2022 11:11-0500 Respiratory rate 18 /min DENIA Carpenter MD Work Phone: [facility] 04-17-2022 11:11-0500 SaO2% (BldA) [Mass fraction] 97 % DENIA Carpenter MD Work Phone: [facility] 04-17-2022 11:11-0500 Systolic blood pressure 100 mm[Hg] DENIA Carpenter MD Work Phone: [facility] 02-25-2022 13:52-0400 Body temperature 97.5 [degF] DENIA Carpenter MD Work Phone: [facility] 02-25-2022 13:52-0400 Body weight 77.11 kg DENIA Carpenter MD Work Phone: [facility] 02-25-2022 13:52-0400 Diastolic blood pressure 68 mm[Hg] DENIA Carpenter MD Work Phone: [facility] 02-25-2022 13:52-0400 Heart rate 92 /min DENIA Carpenter MD Work Phone: [facility] 02-25-2022 13:52-0400 Respiratory rate 16 /min DENIA Carpenter MD Work Phone: [facility] 02-25-2022 13:52-0400 SaO2% (BldA) [Mass fraction] 95 % DENIA Carpenter MD Work Phone: [facility] 02-25-2022 13:52-0400 Systolic blood pressure 125 mm[Hg] DENIA Carpenter MD Work Phone: [facility] 02-18-2022 10:26-0400 Body height 178.7 cm Esdras Cash MD Work Phone: [facility] 02-18-2022 10:26-0400 Body temperature 97.59 [degF] Esdras Cash MD Work Phone: [facility] 02-18-2022 10:26-0400 Body weight 79.83 kg Esdras Cash MD Work Phone: [facility] 02-18-2022 10:26-0400 Diastolic blood pressure 69 mm[Hg] Esdras Cash MD Work Phone: [facility] 02-18-2022 10:26-0400 Heart rate 72 /min Esdras Cash MD Work Phone: [facility] 02-18-2022 10:26-0400 Respiratory rate 18 /min Esdras Cash MD Work Phone: [facility] 02-18-2022 10:26-0400 SaO2% (BldA) [Mass fraction] 96 % Esdras Cash MD Work Phone: [facility] 02-18-2022 10:26-0400 Systolic blood pressure 107 mm[Hg] Esdras Cash MD Work Phone: [facility] 01-13-2022 12:00-0400 54 1 Gildardo Butler Naderer Work Phone: [facility] [address] [place] Work Phone: Comment on above: [place] [id number] 01-13-2022 10:45-0400 70 1 Gildardo Butler Naderer Work Phone: [facility] [address] DO Work Phone: Comment on above: [id number] 12-26-2021 13:12-0400 Body temperature 97.59 [degF] DENIA Carpenter MD Work Phone: [facility] 12-26-2021 13:12-0400 Body weight 76.66 kg DENIA Carpenter MD Work Phone: [facility] 12-26-2021 13:12-0400 Diastolic blood pressure 77 mm[Hg] DENIA Carpenter MD Work Phone: [facility] 12-26-2021 13:12-0400 Heart rate 81 /min DENIA Carpenter MD Work Phone: [facility] 12-26-2021 13:12-0400 Respiratory rate 16 /min DENIA Carpenter MD Work Phone: [facility] 12-26-2021 13:12-0400 SaO2% (BldA) [Mass fraction] 99 % DENIA Carpenter MD Work Phone: [facility] 12-26-2021 13:12-0400 Systolic blood pressure 122 mm[Hg] DENIA Carpenter MD Work Phone: [facility] 11-27-2021 10:50-0400 Diastolic blood pressure 68 mm[Hg] Gildardo Butler Naderer Work Phone: [facility] [address] DO Work Phone: 11-27-2021 10:50-0400 Systolic blood pressure 90 mm[Hg] Gildardo Butler Naderer Work Phone: [facility] [address] DO Work Phone: 11-27-2021 10:47-0400 Body height 177.8 cm Gildardo Butler Naderer Work Phone: [facility] [address] DO Work Phone: 11-27-2021 10:47-0400 Body mass index (BMI) [Ratio] 23.53 kg/m2 Gildardo Butler Naderer Work Phone: [facility] [address] DO Work Phone: 11-27-2021 10:47-0400 Body surface area Derived from formula 1.92 m2 Gildardo Butler Naderer Work Phone: [facility] [address] DO Work Phone: 11-27-2021 10:47-0400 Body weight 74.39 kg Gildardo Butler Naderer Work Phone: [facility] DO Work Phone: 11-27-2021 10:47-0400 Diastolic blood pressure 70 mm[Hg] Gildardo Butler Naderer Work Phone: [facility] [address] DO Work Phone: 11-27-2021 10:47-0400 Heart rate 92 /min Gildardo Butler Naderer Work Phone: [facility] [address] DO Work Phone: 11-27-2021 10:47-0400 Systolic blood pressure 102 mm[Hg] Gildardo Masseyr Work Phone: [facility] [address] DO Work Phone: 11-27-2021 10:47-0400 8 1 Gildardo Masseyr Work Phone: [facility] [address] DO Work Phone: Comment on above: [id number] 11-21-2021 10:53-0400 Body temperature 97.9 [degF] DENIA Carpenter MD Work Phone: [facility] 11-21-2021 10:53-0400 Body weight 74.93 kg DENIA Carpenter MD Work Phone: [facility] 11-21-2021 10:53-0400 Diastolic blood pressure 72 mm[Hg] DENIA Carpenter MD Work Phone: [facility] 11-21-2021 10:53-0400 Heart rate 117 /min DENIA Carpenter MD Work Phone: [facility] 11-21-2021 10:53-0400 Respiratory rate 18 /min DENIA Carpenter MD Work Phone: [facility] 11-21-2021 10:53-0400 SaO2% (BldA) [Mass fraction] 97 % DENIA Carpenter MD Work Phone: [facility] 11-21-2021 10:53-0400 Systolic blood pressure 119 mm[Hg] DENIA Carpenter MD Work Phone: [facility] 10-03-2021 13:55-0400 Body height 178.7 cm Esdras Cash MD Work Phone: [facility] 10-03-2021 13:55-0400 Body temperature 98.01 [degF] Esdras Cash MD Work Phone: [facility] 10-03-2021 13:55-0400 Body weight 75.39 kg Esdras Cash MD Work Phone: [facility] 10-03-2021 13:55-0400 Diastolic blood pressure 64 mm[Hg] Esdras Cash MD Work Phone: [facility] 10-03-2021 13:55-0400 Heart rate 97 /min Esdras Cash MD Work Phone: [facility] 10-03-2021 13:55-0400 Respiratory rate 16 /min Esdras Cash MD Work Phone: [facility] 10-03-2021 13:55-0400 SaO2% (BldA) [Mass fraction] 98 % Esdras Cash MD Work Phone: [facility] 10-03-2021 13:55-0400 Systolic blood pressure 116 mm[Hg] Esdras Cash MD Work Phone: [facility] 09-23-2021 12:09-0400 Body height 178.7 cm Esdras Cash MD Work Phone: [facility] 09-23-2021 12:09-0400 Body temperature 97.59 [degF] Esdras Cash MD Work Phone: [facility] 09-23-2021 12:09-0400 Body weight 75.12 kg Esdras Cash MD Work Phone: [facility] 09-23-2021 12:09-0400 Diastolic blood pressure 64 mm[Hg] Esdras Cash MD Work Phone: [facility] 09-23-2021 12:09-0400 Heart rate 81 /min Esdras Cash MD Work Phone: [facility] 09-23-2021 12:09-0400 Respiratory rate 16 /min Esdras Cash MD Work Phone: [facility] 09-23-2021 12:09-0400 SaO2% (BldA) [Mass fraction] 97 % Esdras Cash MD Work Phone: [facility] 09-23-2021 12:09-0400 Systolic blood pressure 118 mm[Hg] Esdras Cash MD Work Phone: [facility] 09-16-2021 11:57-0400 Body height 178.7 cm Anthony Mejia PA-C Work Phone: [facility] 09-16-2021 11:57-0400 Body temperature 96.69 [degF] Anthony Mejia PA-C Work Phone: [facility] 09-16-2021 11:57-0400 Body weight 77.11 kg Anthony Mejia PA-C Work Phone: [facility] 09-16-2021 11:57-0400 Diastolic blood pressure 76 mm[Hg] Anthony Mejia PA-C Work Phone: [facility] 09-16-2021 11:57-0400 Heart rate 110 /min Anthony Mejia PA-C Work Phone: [facility] 09-16-2021 11:57-0400 Respiratory rate 18 /min Anthony Mejia PA-C Work Phone: [facility] 09-16-2021 11:57-0400 SaO2% (BldA) [Mass fraction] 99 % Anthony Mejia PA-C Work Phone: [facility] 09-16-2021 11:57-0400 Systolic blood pressure 112 mm[Hg] Anthony Mejia PA-C Work Phone: [facility] 09-16-2021 11:23-0400 Body temperature 96.69 [degF] Mike Brown MD Work Phone: [facility] 09-16-2021 11:23-0400 Body weight 77.11 kg Mike Brown MD Work Phone: [facility] 09-16-2021 11:23-0400 Diastolic blood pressure 76 mm[Hg] Mike Brown MD Work Phone: [facility] 09-16-2021 11:23-0400 Heart rate 110 /min Mike Brown MD Work Phone: [facility] 09-16-2021 11:23-0400 Respiratory rate 18 /min Mike Brown MD Work Phone: [facility] 09-16-2021 11:23-0400 SaO2% (BldA) [Mass fraction] 99 % Mike Brown MD Work Phone: [facility] 09-16-2021 11:23-0400 Systolic blood pressure 112 mm[Hg] Mike Brown MD Work Phone: [facility] 09-09-2021 11:46-0400 Body height 178.7 cm Esdras Cash MD Work Phone: [facility] 09-09-2021 11:46-0400 Body temperature 97.59 [degF] Esdras Cash MD Work Phone: [facility] 09-09-2021 11:46-0400 Body weight 77.66 kg Esdras Cash MD Work Phone: [facility] 09-09-2021 11:46-0400 Diastolic blood pressure 73 mm[Hg] Esdras Cash MD Work Phone: [facility] 09-09-2021 11:46-0400 Heart rate 81 /min Esdras Cash MD Work Phone: [facility] 09-09-2021 11:46-0400 Respiratory rate 16 /min Esdras Cash MD Work Phone: [facility] 09-09-2021 11:46-0400 SaO2% (BldA) [Mass fraction] 97 % Esdras Cash MD Work Phone: [facility] 09-09-2021 11:46-0400 Systolic blood pressure 123 mm[Hg] Esdras Cash MD Work Phone: [facility] 09-09-2021 11:25-0400 Body temperature 97.59 [degF] DENIA Carpenter MD Work Phone: [facility] 09-09-2021 11:25-0400 Body weight 77.38 kg DENIA Carpenter MD Work Phone: [facility] 09-09-2021 11:25-0400 Diastolic blood pressure 71 mm[Hg] DENIA Carpenter MD Work Phone: [facility] 09-09-2021 11:25-0400 Heart rate 78 /min DENIA Carpenter MD Work Phone: [facility] 09-09-2021 11:25-0400 Respiratory rate 16 /min DENIA Carpenter MD Work Phone: [facility] 09-09-2021 11:25-0400 SaO2% (BldA) [Mass fraction] 99 % DENIA Carpenter MD Work Phone: [facility] 09-09-2021 11:25-0400 Systolic blood pressure 134 mm[Hg] DENIA Carpenter MD Work Phone: [facility] 09-02-2021 09:14-0400 Body height 178.7 cm Anthony Mejia PA-C Work Phone: [facility] 09-02-2021 09:14-0400 Body temperature 98.01 [degF] Anthony Mejia PA-C Work Phone: [facility] 09-02-2021 09:14-0400 Body weight 76.66 kg Anthony Mejia PA-C Work Phone: [facility] 09-02-2021 09:14-0400 Diastolic blood pressure 69 mm[Hg] Anthony Mejia PA-C Work Phone: [facility] 09-02-2021 09:14-0400 Heart rate 101 /min Anthony Mejia PA-C Work Phone: [facility] 09-02-2021 09:14-0400 Respiratory rate 16 /min Anthony Mejia PA-C Work Phone: [facility] 09-02-2021 09:14-0400 SaO2% (BldA) [Mass fraction] 98 % Anthony Mejia PA-C Work Phone: [facility] 09-02-2021 09:14-0400 Systolic blood pressure 121 mm[Hg] Anthony Weaver PA-C Work Phone: [facility] 08-26-2021 09:00-0400 Body height 178.7 cm Chair Kelsey Work Phone: [facility] 08-26-2021 09:00-0400 Body temperature 97.3 [degF] Chair Ashley Work Phone: [facility] 08-26-2021 09:00-0400 Body weight 77.4 kg Chair Ashley Work Phone: [facility] 08-26-2021 09:00-0400 Diastolic blood pressure 61 mm[Hg] Chair Ashley Work Phone: [facility] 08-26-2021 09:00-0400 Heart rate 85 /min Chair Kelsey Work Phone: [facility] 08-26-2021 09:00-0400 Respiratory rate 16 /min Chair Ashley Work Phone: [facility] 08-26-2021 09:00-0400 SaO2% (BldA) [Mass fraction] 98 % Chair Ashley Work Phone: [facility] 08-26-2021 09:00-0400 Systolic blood pressure 132 mm[Hg] Chair Ashley Work Phone: [facility] 08-19-2021 13:25-0400 Body height 178.7 cm Nathaly Biggs APRN.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 Work Phone: [facility] 08-19-2021 13:25-0400 Body temperature 97.59 [degF] Nathaly Biggs APRN.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 Work Phone: [facility] 08-19-2021 13:25-0400 Body weight 77.38 kg Nathaly Biggs APRN.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 Work Phone: [facility] 08-19-2021 13:25-0400 Diastolic blood pressure 89 mm[Hg] Nathaly Biggs APRN.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 Work Phone: [facility] 08-19-2021 13:25-0400 Heart rate 80 /min Nathaly Biggs APRN.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 Work Phone: [facility] 08-19-2021 13:25-0400 Respiratory rate 16 /min Nathaly Biggs APRN.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 Work Phone: [facility] 08-19-2021 13:25-0400 SaO2% (BldA) [Mass fraction] 96 % Nathaly Biggs APRN.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 Work Phone: [facility] 08-19-2021 13:25-0400 Systolic blood pressure 120 mm[Hg] Nathaly Biggs APRN.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 Work Phone: [facility] 08-19-2021 12:25-0400 Body temperature 97.7 [degF] DENIA Carpenter MD Work Phone: [facility] 08-19-2021 12:25-0400 Body weight 78.93 kg DENIA Carpenter MD Work Phone: [facility] 08-19-2021 12:25-0400 Diastolic blood pressure 65 mm[Hg] DENIA Carpenter MD Work Phone: [facility] 08-19-2021 12:25-0400 Heart rate 77 /min DENIA Carpenter MD Work Phone: [facility] 08-19-2021 12:25-0400 Respiratory rate 16 /min DENIA Carpenter MD Work Phone: [facility] 08-19-2021 12:25-0400 SaO2% (BldA) [Mass fraction] 98 % DENIA Carpenter MD Work Phone: [facility] 08-19-2021 12:25-0400 Systolic blood pressure 120 mm[Hg] DENIA Carpenter MD Work Phone: [facility] 08-12-2021 12:28-0400 Body height 178.7 cm Chair Kelsey Work Phone: [facility] 08-12-2021 11:47-0400 Body height 177 cm Esdras Cash MD Work Phone: [facility] 08-12-2021 11:47-0400 Body temperature 97.81 [degF] Esdras Cash MD Work Phone: [facility] 08-12-2021 11:47-0400 Body weight 75.66 kg Esdras Cash MD Work Phone: [facility] 08-12-2021 11:47-0400 Diastolic blood pressure 65 mm[Hg] Esdras Cash MD Work Phone: [facility] 08-12-2021 11:47-0400 Heart rate 72 /min Esdras Cash MD Work Phone: [facility] 08-12-2021 11:47-0400 Respiratory rate 16 /min Esdras Cash MD Work Phone: [facility] 08-12-2021 11:47-0400 SaO2% (BldA) [Mass fraction] 98 % Esdras Cash MD Work Phone: [facility] 08-12-2021 11:47-0400 Systolic blood pressure 113 mm[Hg] Esdras Cash MD Work Phone: [facility] 08-12-2021 10:32-0400 Body temperature 97.7 [degF] DENIA Carpenter MD Work Phone: [facility] 08-12-2021 10:32-0400 Body weight 77.11 kg DENIA Carpenter MD Work Phone: [facility] 08-12-2021 10:32-0400 Diastolic blood pressure 64 mm[Hg] DENIA Carpenter MD Work Phone: [facility] 08-12-2021 10:32-0400 Heart rate 79 /min DENIA Carpenter MD Work Phone: [facility] 08-12-2021 10:32-0400 Respiratory rate 16 /min DENIA Carpenter MD Work Phone: [facility] 08-12-2021 10:32-0400 SaO2% (BldA) [Mass fraction] 99 % DENIA Carpenter MD Work Phone: [facility] 08-12-2021 10:32-0400 Systolic blood pressure 119 mm[Hg] DENIA Carpenter MD Work Phone: [facility] 08-01-2021 16:11-0400 Body height 177 cm Esdras Cash MD Work Phone: [facility] 08-01-2021 16:11-0400 Body temperature 97 [degF] Esdras Cash MD Work Phone: [facility] 08-01-2021 16:11-0400 Body weight 77.84 kg Esdras Cash MD Work Phone: [facility] 08-01-2021 16:11-0400 Diastolic blood pressure 64 mm[Hg] Esdras Cash MD Work Phone: [facility] 08-01-2021 16:11-0400 Heart rate 68 /min Esdras Cash MD Work Phone: [facility] 08-01-2021 16:11-0400 Respiratory rate 16 /min Esdras Cash MD Work Phone: [facility] 08-01-2021 16:11-0400 SaO2% (BldA) [Mass fraction] 99 % Esdras Cash MD Work Phone: [facility] 08-01-2021 16:11-0400 Systolic blood pressure 126 mm[Hg] Esdras Cash MD Work Phone: [facility] 07-30-2021 11:02-0400 Body temperature 98.29 [degF] DENIA Carpenter MD Work Phone: [facility] 07-30-2021 11:02-0400 Body weight 77.11 kg DENIA Carpenter MD Work Phone: [facility] 07-30-2021 11:02-0400 Diastolic blood pressure 59 mm[Hg] DENIA Carpenter MD [facility] [facility] 07-30-2021 11:02-0400 Heart rate 69 /min DENIA Carpenter MD Work Phone: [facility] 07-30-2021 11:02-0400 Respiratory rate 16 /min DENIA Carpenter MD Work Phone: [facility] 07-30-2021 11:02-0400 SaO2% (BldA) [Mass fraction] 99 % DENIA Carpenter MD Work Phone: [facility] 07-30-2021 11:02-0400 Systolic blood pressure 108 mm[Hg] DENIA Carpenter MD Work Phone: [facility] 01-22-2018 18:46-0400 Respiratory rate NOT REPORTED [facility] Comment on above: Performed By: #### OHP, IOCAL ####[facility] [id number] [place] [address] 01-19-2018 23:55-0400 Respiratory rate NOT REPORTED [facility] Comment on above: Performed By: #### ERTPF, CONNER, LIP, LIVP , TEGCR ####[facility] [id number] [place] [address] 01-19-2018 22:58-0400 Respiratory rate NOT REPORTED [facility] Comment on above: Performed By: #### OHP, IOCAL ####[facility] [id number] [place] [address] 01-19-2018 22:10-0400 Respiratory rate NOT REPORTED [facility] Comment on above: Performed By: #### OHP, IOCAL ####[facility] [id number] [place] [address] 01-19-2018 21:07-0400 Respiratory rate NOT REPORTED [facility] Comment on above: Performed By: #### ERTPF, CONNER, LIP, LIVP , TEGCR ####[facility] [id number] [place] [id number] Encounters Encounter Date Encounter Type Care Provider Facility Start: 06-24-2024 End: 06-24-2024 Refill Gildardo Lacy MD Work Phone: [facility] Comment on above: DDD (degenerative di sc disease), thoracic Start: 06-21-2024 End: 06-21-2024 Office outpatient visit 15 minutes Kathrine Carpenter MD Work Phone: Radiation Oncology Comment on above: Head and neck cancer (HCC) (Primary Dx) Start: 06-21-2024 End: 06-21-2024 ambulatory GILDARDO LACY Facility:[facility] Start: 06-10-2024 End: 06-10-2024 Clinisync Result Encounter [...] extremity; Smoking Start: 06-10-2024 End: 06-10-2024 ambulatory [facility] Facility:[facility] Start: 06-10-2024 End: 06-10-2024 Subsequent hospital visit [...] (CMS/HCC) (Primary Dx); Unsteady gait; Tongue cancer (CMS/[facility]); Chronic obstructive pulmonary disease, unspecified COPD type ([facility]/HCC) Start: 06-01-2024 End: 06-01-2024 ambulatory GILDARDO LACY Not Available Start: 05-26-2024 End: 05-26-2024 Refill Gildardo Lacy MD Work Phone: [facility] Comment on above: DDD (degenerative di sc disease), thoracic Start: 05-25-2024 End: 05-26-2024 Refill Gildardo Lacy MD Work Phone: [facility] Comment on above: DDD (degenerative di sc disease), thoracic Start: 05-24-2024 End: 05-24-2024 Bamboo flowsheet Cassie PHAN Work Phone: [facility] Start: 05-24-2024 End: 05-24-2024 Bamboo flowsheet Cassie PHAN Work Phone: [facility] Start: 05-24-2024 End: 05-24-2024 Postop follow up visit related to original px Cassie PHAN Work Phone: [facility] Comment on above: S/P arthroscopy of r ight shoulder (Primary Dx); Internal derangement of shoulder, right; Arthralgia, unspecified joint Start: 05-24-2024 End: 05-24-2024 ambulatory CASSIE HOOD Not Available Start: 05-12-2024 End: 05-16-2024 Telephone encounter Cassie PHAN Work Phone: [facility] Comment on above: Order Start: 05-06-2024 End: 05-06-2024 Bamboo flowsheet Cassie PHAN Work Phone: [facility] Start: 05-06-2024 End: 05-06-2024 Bamboo flowsheet Cassie PHAN Work Phone: [facility] Start: 05-06-2024 End: 05-06-2024 Postop follow up visit related to original px Cassie PHAN Work Phone: [facility] Comment on above: S/P arthroscopy of r ight shoulder (Primary Dx); Internal derangement of shoulder, right Start: 05-06-2024 End: 05-06-2024 ambulatory CASSIE HOOD Not Available Start: 04-21-2024 End: 04-21-2024 Refill Gildardo Lacy MD Work Phone: [facility] Comment on above: DDD (degenerative di sc disease), thoracic Start: 04-12-2024 End: 04-12-2024 Bamboo flowsheet Gildardo Lacy MD Work Phone: [facility] Start: 04-12-2024 End: 04-12-2024 Bamboo flowsheet Gildardo Lacy MD Work Phone: [facility] Start: 04-12-2024 End: 04-12-2024 Patient encounter procedure Gildardo Lacy MD Work Phone: [facility] Work Phone: Start: 04-12-2024 End: 04-12-2024 Postop follow up visit related to original px Gildardo Lacy MD Work Phone: [facility] Comment on above: Medicare annual well ness visit, subsequent (Primary Dx); Left foot pain Start: 04-12-2024 End: 04-12-2024 ambulatory GILDARDO LACY Not Available Start: 04-04-2024 End: 04-04-2024 Refill Sadaf Bowden [facility] Work Phone: [facility] Comment on above: Refill Request Start: 03-29-2024 End: 03-30-2024 Refill Gildardo Lacy MD Work Phone: [facility] Comment on above: Thoracic spondylosis ; DDD (degenerative disc disease), thoracic Start: 03-23-2024 End: 03-23-2024 Bamboo flowsheet Cassie PHAN Work Phone: [facility] Start: 03-23-2024 End: 03-23-2024 Bamboo [...] 02-22-2024 Refill Gildardo Lacy MD Work Phone: [facility] Comment on above: Primary insomnia Start: 02-08-2024 End: 02-09-2024 Telephone encounter Jesse George BALER Work Phone: [facility] Start: 02-02-2024 End: 02-02-2024 Bamboo flowsheet Cassie Hood PA Work Phone: [facility] Start: 02-02-2024 End: 02-02-2024 Bamboo flowsheet Cassie Hood PA Work Phone: [facility] Start: 02-02-2024 End: 02-02-2024 ambulatory CASSIE HOOD Not Available Start: 02-02-2024 End: 02-02-2024 Patient encounter procedure Cassie PHAN Work Phone: [facility] Comment on above: Preop examination (P rimary Dx) Start: 02-02-2024 End: 02-02-2024 Preprocedural examination done Cassie PHAN Work Phone: [facility] Start: 01-11-2024 End: 01-15-2024 Telephone encounter Jr. Martin Chen DO Work Phone: [facility] Start: 01-05-2024 End: 01-05-2024 Refill Gildardo Lacy MD Work Phone: [facility] Comment on above: DDD (degenerative di sc disease), thoracic Start: 12-31-2023 End: 12-31-2023 Refill Marilu Boudreaux [facility] Comment on above: DDD (degenerative di sc disease), thoracic Start: 12-28-2023 End: 12-28-2023 Bamboo flowsheet Jr. Martin Chen DO Work Phone: [facility] Start: 12-28-2023 End: 12-28-2023 Bamboo flowsheet Jr. Martin Chen DO Work Phone: [facility] Start: 12-28-2023 End: 12-28-2023 Office outpatient visit 25 minutes Jr. 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); Severe protein-calorie malnutrition (HCC) Start: 12-22-2023 End: 12-22-2023 ambulatory ESDRAS CASH Facility:[facility] Start: 12-22-2023 End: 12-22-2023 Patient encounter procedure G Сергей Carpenter MD Work Phone: Radiation Oncology Comment on above: Head and neck cancer (HCC) (Primary Dx); History of radiation therapy Start: 12-15-2023 End: 12-15-2023 ambulatory GILDARDO LACY Facility:[facility] Start: 12-15-2023 End: 12-15-2023 Subsequent hospital visit by physician Arrival Time Radiology Work Phone: [facility] Comment on above: 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 Ambulatory Start: 11-02-2023 End: 11-02-2023 Emergency department patient visit GILDARDO LACY [facility] Start: 11-02-2023 End: 11-02-2023 ambulatory MARTIN BAUM Not Available Start: 10-21-2023 End: 10-21-2023 ambulatory GILDARDO REGGIE Not Available Start: 10-14-2023 ambulatory VALE neil [facility] Start: 09-08-2023 End: 09-08-2023 Patient encounter procedure MD Gildardo Lacy Work Phone: [facility] [place] Work Phone: Start: 09-08-2023 End: 09-08-2023 ambulatory MD Gildardo Lacy Work Phone: [facility] Work Phone: Start: 08-18-2023 End: 08-18-2023 Nutrition therapy Esdras Cash MD Work Phone: Hematology/Oncology Comment on above: 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 Ambulatory Start: 05-06-2023 End: 05-06-2023 Office outpatient visit 25 minutes Carmen Neely MD Work Phone: [facility] Comment on above: PVD (peripheral vasc ular disease) (CMS/HCC) (Primary Dx); Abnormal EKG; TIA (transient ischemic attack); Current smoker; Hyperlipidemia, unspecified hyperlipidemia type; Pulmonary emphysema, unspecified emphysema type (CMS/HCC) Start: 03-25-2023 Refill Esdras Cash MD Work Phone: Hematology/Oncology Comment on above: Refill Request Start: 02-13-2023 Telephone encounter Judith Shin Hematology/Oncology Start: 02-11-2023 Refill Nathaly Biggs APRN.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 Work Phone: Hematology/Oncology Comment on above: Refill [...] sit 25 minutes Gildardo Lacy Work Phone: [facility] 250 DO Work Phone: Start: 06-10-2022 [...] 01-18-2022 Chart Update [facility] Work Phone: Start: 01-13-2022 Patient encounter procedure [facility] [place] Work Phone: Start: 01-13-[address] Carmen king [facility]:[id number] Start: 12-26-2021 End: 12-26-2021 Patient encounter [...] w 45 minutes [facility]ildardo Lacy [facility] Work Phone: Start: 11-27-[address] Gildardo Lacy Facility: Start: 11-26-2021 Refill Nathaly Biggs APRN.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 Work Phone: Radiation Oncology Comment on above: [...] Start: 09-23-2021 End: 09-23-2021 Patient encounter procedure Esdras Cash MD Work Phone: [place] Start: 09-19-2021 Telephone encounter Cynthia olivera RN Work Phone: Hematology/Oncology Comment on above: Care Coordination (H ospital Admission) Start: 09-19-2021 End: 09-20-2021 Evaluation and management of inpatient 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 Start: 04-05-2021 End: 04-05-2021 Subsequent hospital visit by physician Arrival Time Radiology Work Phone: Radiology [facility] Comment on above: Malignant neoplasm o f head, face and neck (HCC) [C76.0] Start: 02-16-2018 End: 03-08-2018 Patient encounter procedure Evonne Ray Facility:[facility] Start: 02-16-2018 End: 03-08-2018 Patient encounter procedure ERICHMARIA VICTORIA Levon RAY [facility] Start: 01-19-2018 End: 02-16-2018 Evaluation and management of inpatient BIAN[facility] Procedures Date Procedure Procedure Detail Performing [...] URI Start: 02-14-2018 INITIATE OXYGEN THERAPY PROTOCOL BIANCA RAYZANDERUDHURI Start: 02-14-2018 NEBULIZER TX INTERMITTENT BIANCA RAYZANDERUD HURI Start: 02-14-2018 Radiologic exam chest single view BIANCA RAYZANDERUDHURI Start: 02-14-2018 Basic metabolic panel calcium total BIANCA RAYZANDERUDHURI Start: 02-14-2018 Blood count complete automated BIANCA RAYCHAUDHURI Start: 02-14-2018 POCT GLUCOSE BIANCA RAYCHAUDHURI Start: 02-14-2018 NEBULIZER TX INTERMITTENT BIANCA RAYZANDERUD HURI Start: 02-14-2018 RESTRAINTS NON-VIOLENT OR [id number]-QVNCCKRDEHF BIANCA RAYZANDERUDHURI Start: 02-13-2018 POCT GLUCOSE BIANCA RAYCHAUDHURI Start: 02-13-2018 NEBULIZER TX INTERMITTENT BIANCA RAYZANDERUD HURI Start: 02-13-2018 POCT GLUCOSE BIANCA ODONNELLUDYAMILETHRI Start: 02-13-2018 CULTURE BLOOD #1 BIANCA [...] BIANCA JASONI Start: 02-11-2018 RESTRAINTS NON-VIOLENT OR KMX-LATL-[id number] BIANCA DE JESUSRI Start: 02-11-2018 Assay of [...] 02-10-2018 MISCELLANEOUS NURSING CARE ORDER (SPECIFY) BIANCA RAYZANDREUDHURI Start: 02-10-2018 POCT GLUCOSE BIANCA RAYZANDERUDHURI Start: [...] DE JESUSRI Start: 02-09-2018 RESTRAINTS NON-VIOLENT OR QXN-KYGW-PHDYQETVLQH BIANCA DE JESUSRI Start: 02-09-2018 NEBULIZER TX [...] TX INTERMITTENT BIANCA JASONI Start: 02-08-2018 Echo [facility] r-t 2d w/wom-mode compl spec&colr d BIANCA DE JESUSRI Start: 02-08-2018 POCT GLUCOSE BIANCA DE JESUSRI Start: 02-08-2018 END TIDAL CO2 CONTINUOUS BIANCA BRADY URI Start: 02-08-2018 INITIATE OXYGEN THERAPY PROTOCOL BIANCA DE JESUSRI Start: 02-08-2018 NEBULIZER TX INTERMITTENT BIANCA JASONI Start: 02-08-2018 RESTRAINTS NON-VIOLENT OR XVB-JTLO-NLMJLGOIEEI BIANCA DE JESUSRI Start: 02-08-2018 Assay of [...] BIANCA ODONNELLUDYAMILETHRI Start: 02-05-2018 RESTRAINTS NON-VIOLENT OR DQP-SQVV-OVCAMTYHVSA BIANCA ODONNELLUDYAMILETHRI Start: 02-05-2018 TRANSFUSE RED BLOOD CELLS BIANCA JASONI Start: 02-05-2018 TEG, RAPID CITRATED BIANCA ODONNELLUDYAMILETHRI Start: 02-05-2018 TRANSFUSE RED BLOOD CELLS BIANCA ODONNELLUD CASIEI Start: 02-05-2018 POCT GLUCOSE BIANCA ODONNELLUDYAMLIETHRI Start: 02-05-2018 END TIDAL CO2 CONTINUOUS BIANCA [...] ODONNELLUDHURI Start: 02-05-2018 ARTERIAL BLOOD GAS, POC BIANCA RAYZANDERUDHU RI Start: 02-05-2018 Radiologic exam chest [...] DE JESUSRI Start: 02-04-2018 RESTRAINTS NON-VIOLENT OR WHR-GPJX-[id number] BIANCA DE JESUSRI Start: 02-04-2018 Assay of [...] BIANCA ODONNELLUDHURI Start: 02-03-2018 RESTRAINTS NON-VIOLENT OR FSF-PRVM-NLWGUQNUGIB BIANCA ODONNELLUDHURI Start: 02-03-2018 POCT GLUCOSE BIANCA [...] DE JESUSRI Start: 02-02-2018 RESTRAINTS NON-VIOLENT OR AEX-IBSP-VUXJAWNWOGJ BIANCA ODONNELLUDYAMILETHRI Start: 02-02-2018 Basic metabolic panel [...] count complete auto&auto difrntl wbc BIANCA DE JSEUSRI Start: 02-01-2018 RESTRAINTS NON-VIOLENT OR HIY-LWJW-WBEJXQFKQWE BIANCA DE JESUSRI Start: 02-01-2018 NURSING COMMUNICATION [...] POCT GLUCOSE BIANCA DE JESUSRI Start: 01-31-2018 INITIATE OXYGEN THERAPY PROTOCOL BIANCA DE JESUSRI Start: 01-31-2018 Assay of magnesium BIANCA DE JESUSRI Start: 01-31-2018 Assay of phosphorus inorganic BIANCA DE JESUSRI Start: 01-31-2018 Basic metabolic panel calcium total BIANCA DE JESUSRI Start: 01-31-2018 Blood count complete auto&auto difrntl wbc BIANCA DE JESUSRI Start: 01-31-2018 RESTRAINTS NON-VIOLENT OR VBQ-PMZO-PCVSBGSOERY BIANCA DE JESUSRI Start: 01-31-2018 POC GLUCOSE [...] BIANCA DE JESUSRI Start: 01-29-2018 WOUND CARE BIACNA COSTA Start: 01-29-2018 MISCELLANEOUS NURSING CARE ORDER (SPECIFY) BIANCA COSTA Start: 01-29-2018 NURSING COMMUNICATION BIANCA COSTA Start: 01-29-2018 PARENTERAL NUTRITION INDICATIONS BIANCA COSTA Start: 01-29-2018 PARENTERAL NUTRITION INFUSION CHECK BIANCA COSTA Start: 01-29-2018 IP CONSULT TO DIETITIAN BIANCA DE JESUS RI Start: 01-29-2018 RESTRAINTS NON-VIOLENT OR JQU-PNQP-FGMFHNJDQVG BIANCA COSTA Start: 01-29-2018 AMMONIA BIANCA COSTA [...] BIANCA ODONNELLUDHURI Start: 01-27-2018 RESTRAINTS NON-VIOLENT OR MZK-DAXV-MNANFTAEZHH BIANCA ODONNELLUDYAMILETHRI Start: 01-27-2018 Radiologic exam abdomen [...] BIANCA RAYCHAUDHURI Start: 01-25-2018 RESTRAINTS NON-VIOLENT OR GXG-YSUY-SCSPYVTVBSF BIANCA RAYZANDERUDHURI Start: 01-25-2018 Potassium serum plasma/whole [...] BIANCA RAYZANDERUDHURI Start: 01-24-2018 RESTRAINTS NON-VIOLENT OR GAA-DUTC-JCMRZFMVUDT BIANCA RAYZANDERUDHURI Start: 01-24-2018 Potassium serum plasma/whole [...] ODONNELLU ARLIN Start: 01-20-2018 INPATIENT CONSULT TO APPRAISER OIL AND WATER BIANCA RAYZANDERUDHURI Start: 01-20-2018 Assay of lactate [...] BIANCA ODONNELLUDHURI Start: 01-20-2018 RESTRAINTS NON-VIOLENT OR IRD-YKZZ-UCSBUNMFDIX BIANCA RAYCHAUDHURI Start: 01-20-2018 ARTERIAL BLOOD GAS, [...] CHEMICAL VTE PROPHYLAXIS BIANCA ODONNELLUDYAMILETHRI Start: 01-20-2018 EGG CRATER EVAL AND TREAT BIANCA DE JESUSRI Start: 01-20-2018 VITAL SIGNS BIANCA DE JESUSRI Start: 01-20-2018 TRANSFER PATIENT BIANCA DE JESUSRI Start: 01-20-2018 PLATELET COUNT BIANCA DE JESUSRI Start: 01-20-2018 TEG, RAPID CITRATED BIANCA DE JESUSRI Start: 01-20-2018 CALCIUM, IONIZED BIANCA DE JESUSRI Start: 01-20-2018 FIBRINOGEN BIANCA COSTA Start: 01-20-2018 OPEN HEART PANEL BIACNA DE JESUSRI Start: 01-20-2018 Prothrombin time BIANCA [...] DTaP,Tdap,Td Vaccine (3 - Td or Tdap) [facility] Start: 04-04-2030 Screening for malign ant neoplasm of colon [facility] Start: 09-07-2028 Lipid panel Lipid Screening [facility] Start: 05-14-2028 DTaP/Tdap/Td Vaccine s (2 - Td or Tdap) DTaP/Tdap/Td Vaccines (2 - Td or Tdap) [facility] Start: 05-14-2028 Urine microalbumin profile [facility] Start: 12-14-2026 Diabetes Screening Diabetes Screenin [facility] Start: 08-17-2026 Diabetes Screening Diabetes Screenin [facility] Start: 06-02-2026 Diabetes Screening Diabetes Screenin [facility] Start: 01-27-2026 Diabetes Screening Diabetes Screenin [facility] Start: 2025 PNEUMOCOCCAL (3 - PPSV23 or PCV20) PNEUMOCOCCAL (3 - PPSV23 or PCV20) [facility] Start: 2025 Pneumococcal vaccination [facility] Start: 2025 Pneumococcal Vaccine : Pediatrics (0 to 5 Years) and At-Risk Patients (6 to 64 Years) (3 - PPSV23 or PCV20) Pneumococcal Vaccine: Pediatrics (0 to 5 Years) and At-Risk Patients (6 to 64 Years) (3 - PPSV23 or PCV20) [facility] Start: 2025 Pneumococcal Vaccine : Pediatrics (0 to 5 Years) and At-Risk Patients (6 to 64 Years) (3 of 3 - PPSV23 or PCV20) Pneumococcal Vaccine: Pediatrics (0 to 5 Years) and At-Risk Patients (6 to 64 Years) (3 of 3 - PPSV23 or PCV20) [facility] Start: 09-16-2025 DIABETES SCREEN DIABETES SCREEN [facility] Start: 06-21-2025 BP Controlled (<130/80) BP Controlle d (<130/80) [facility] Start: 05-20-2025 DIABETES SCREEN [facility] Start: 04-12-2025 Medicare Annual Wellness (AWV) Medicare Annual Wellness (AWV) [facility] Start: 01-16-2025 DIABETES SCREEN DIABET[facility]CREEN [facility] Start: 12-20-2024 End: 12-20-2024 Patient encounter procedure 12/20/2024 1:15 PM EDT Office Visit Radiation Oncology [address] [place] [address] [place] [address] [place] [address] [place] [phone] Followup Radiation Oncology Comment on above: Followup Start: 10-11-2024 End: 10-11-2024 Patient encounter procedure 10/11/2024 10:30 AM EDT Office Visit [facility] [address] [place] [address] Gildardo Lacy MD [address] [place] [id number] [facility] Start: 10-03-2024 DIABETES SCREEN [facility]CRE[facility] Start: 09-24-2024 DIABETES SCREEN DIABET[facility] SCREEN [facility] Start: 09-16-2024 DIABETES SCREEN DIABETES SCREEN [facility] Start: 09-09-2024 DIABETES SCREEN DIABETES SCREEN [facility] Start: 09-02-2024 DIABETES SCREEN DIABETES SCREEN [facility] Start: 08-26-2024 DIABETES SCREEN DIABETES SCREEN [facility] Start: 08-19-2024 DIABETES SCREEN [facility]ABET[facility] SCRE[facility] Start: 08-12-2024 DIABETES SCREEN DIABETES SCREEN [facility] Start: 06-28-2024 DIABETES SCREEN DIABETES SCREEN [facility] Start: 06-21-2024 End: 06-21-2024 Patient encounter procedure 06/21/2024 1:30 PM EST Office Visit Radiation Oncology [address] [address] Kathrine Carpenter MD [address] [place] [address] Followup Radiation Oncology Comment on above: Followup Start: 06-10-2024 End: 06-10-2024 Patient encounter procedure Radiology Comment on above: XR SHOULDER GENERAL 3V OR MORE AP/TRUE AP/OTHER RIGHT Rt shoulder / arthra lgia Start: 06-09-2024 End: 06-09-2024 Patient encounter procedure 06/09/2024 10:20 AM EST Office Visit [facility] [address] [place] [address] Carmen Neely MD [address] [place] [address] [facility] Start: 05-24-2024 End: 05-24-2024 Patient encounter [...] [facility] Jr. Martin Chen, [address] [place] [address] [facility] Start: 02-02-2024 End: 01-27-2025 ECG 12 lead ECG 12 lead ECG Routine Preop examination Expected: 02/02/2024 (Approximate), Expires: 01/27/2025 [facility] Work Phone: Comment on above: Expected: 02/02/2024 (Approximate), Expires: 01/27/2025 Start: 01-03-2024 Covid-19 Vaccine () Covid-19 Vaccine () [facility] Start: 01-03-2024 Influenza vaccination Influenza Vacc ine (#1) [facility] Start: 12-28-2023 End: 12-28-2023 Patient encounter procedure 12/28/2023 2:00 PM EDT Office Visit [facility] [address] [place] [address] Jr. Martin Chen C, DO [address] [place] [address] Arrived [facility] Comment on above: Arrived Start: 12-22-2023 End: 12-22-2023 Follow-up encounter 12/22/2023 3:15 PM EDT Visit (SP) Office Hematology/Oncology [address] [address] Esdras Cash MD [address] [place] [address] 18 week follow up for pet scan results Hematology/Oncology Comment on above: 18 week follow up fo r pet scan results Start: 12-22-2023 End: 12-22-2023 Patient encounter procedure 12/22/2023 2:45 PM EDT Office Visit Radiation Oncology [address] [facility] [address] Kathrine Carpenter MD [address] [facility] [address] Followup Radiation Oncology Comment on above: Followup Start: 12-18-2023 End: 03-18-2024 CBC W Auto Differential panel - Blood COMPLETE BLOOD COUNT AND DIFFERENTIAL Lab Routine Cancer of base of tongue (HCC) Malaise and fatigue Expected: 12/18/2023 (Approximate), Expires: 03/18/2024 [facility] Work Phone: Comment on above: Expected: 12/18/2023 (Approximate), Expires: 03/18/2024 Start: 12-18-2023 End: 03-18-2024 Comprehensive metabolic 2000 panel - Serum or Plasma COMPREHENSIVE METABOLIC PANEL Lab Routine Cancer of base of tongue (HCC) Malaise and fatigue Expected: 12/18/2023 (Approximate), Expires: 03/18/2024 [facility] Work Phone: Comment on above: Expected: 12/18/2023 (Approximate), Expires: 03/18/2024 Start: 12-18-2023 End: 03-18-2024 Thyrotropin [Units/volume] in Serum or Plasma THYROID STIMULATING HORMONE Lab Routine Cancer of base of tongue (HCC) Malaise and fatigue Expected: 12/18/2023 (Approximate), Expires: 03/18/2024 [facility] Work Phone: Comment on above: Expected: 12/18/2023 (Approximate), Expires: 03/18/2024 Start: 12-15-2023 End: 12-15-2023 Patient encounter procedure 12/15/2023 9:00 AM EDT Appointment Radiology Pet CT [address] [place] [address] [place] [address] Comment on above: Pet scan Start: 11-17-2023 End: 11-17-2023 Patient encounter procedure 11/17/2023 10:20 AM EDT Office Visit [facility] [address] [facility] [address] [place] [id number] Carmen Neely MD [address] [place] [address] [facility] Start: 09-17-2023 BP CONTROLLED (<130/80) BP CONTROLLE D (<130/80) [facility] Start: 09-11-2023 Influenza vaccination LUNG CANCER SC REENING [facility] Start: 09-11-2023 Screening for malign ant neoplasm of lung Lung Cancer Screening [facility] Start: 07-17-2023 BP CONTROLLED (<130/80) BP CONTROLLE D (<130/80) [facility] Start: 05-20-2023 BP CONTROLLED (<130/80) BP CONTROLLE D (<130/80) [facility] Start: 05-06-2023 End: 05-06-2024 Lipid 1996 panel - Serum or Plasma Lipid Panel Lab Routine Hyperlipidemia, unspecified hyperlipidemia type Expected: 05/06/2023 (Approximate), Expires: 05/06/2024 [facility] Service Area Work Phone: Comment on above: Expected: 05/06/2023 (Approximate), Expires: 05/06/2024 Start: 04-17-2023 BP CONTROLLED (<130/80) BP CONTROLLE D (<130/80) [facility] Start: 04-14-2023 Influenza vaccination LUNG CANCER SC REENING [facility] Start: 02-25-2023 BP CONTROLLED (<130/80) BP CONTROLLE D (<130/80) [facility] Start: 02-18-2023 BP CONTROLLED (<130/80) BP CONTROLLE D (<130/80) [facility] Start: 01-31-2023 Pneumococcal Vaccine : 50+ (3 of 3 - PCV20 or PCV21) Pneumococcal Vaccine: 50+ (3 of 3 - PCV20 or PCV21) [facility] Start: 01-02-2023 Covid-19 Vaccine ( season) Covid-19 Vaccine ( season) [facility] Start: 01-02-2023 Influenza vaccination [facility] Start: 12-26-2022 BP CONTROLLED (<130/80) BP CONTROLLE D (<130/80) [facility] Start: 12-02-2022 EPV, Provider: Carmen Neely, Status: Pen, Time: 10:20 AM EPV, Provider: Carmen Neely, Status: Pen, Time: 10:20 AM -[facility] [address] DO Work Phone: Start: 11-21-2022 BP CONTROLLED (<130/80) BP CONTROLLE D (<130/80) [facility] Start: 10-09-2022 BP CONTROLLED (<130/80) BP CONTROLLE D (<130/80) [facility] Start: 10-03-2022 BP CONTROLLED (<130/80) BP CONTROLLE D (<130/80) [facility] Start: 09-23-2022 BP CONTROLLED (<130/80) BP CONTROLLE D (<130/80) [facility] Start: 09-16-2022 BP CONTROLLED (<130/80) BP CONTROLLE D (<130/80) [facility] Start: 09-09-2022 BP CONTROLLED (<130/80) BP CONTROLLE D (<130/80) [facility] Start: 09-02-2022 BP CONTROLLED (<130/80) BP CONTROLLE D (<130/80) [facility] Start: 08-12-2022 BP CONTROLLED (<130/80) BP CONTROLLE D (<130/80) [facility] Start: 08-12-2022 End: 10-12-2022 CREATININE BLD CREATININE BLD Lab Routine Oropharnyx cancer (HCC) Expected: 08/12/2022, Expires: 10/12/2022 [facility] Work Phone: Comment on above: Expected: 08/12/2022 , Expires: 10/12/2022 Start: 08-07-2022 COVID-19 Vaccine (4 - Pfizer series) COVID-19 Vaccine (4 - Pfizer series) [facility] Start: 08-01-2022 BP CONTROLLED (<130/80) BP CONTROLLE D (<130/80) [facility] Start: 07-30-2022 BP CONTROLLED (<130/80) BP CONTROLLE D (<130/80) [facility] Start: 07-16-2022 End: 09-15-2022 Thyrotropin [Units/volume] in Serum or Plasma TSH BLD Lab Routine Cancer of base of tongue (HCC) Expected: 07/16/2022, Expires: 09/15/2022 [facility] Work Phone: Comment on above: Expected: 07/16/2022 , Expires: 09/15/2022 Start: 07-16-2022 End: 09-15-2022 Thyroxine (T4) [Mass/volume] in Serum or Plasma T4/THYROXINE BLOOD Lab Routine Cancer of base of tongue (HCC) Expected: 07/16/2022, Expires: 09/15/2022 [facility] Work Phone: Comment on above: Expected: 07/16/2022 , Expires: 09/15/2022 Start: 06-20-2022 Influenza vaccination LUNG CANCER [facility] Start: 06-10-2022 FUV, Provider: Carmen Neely, Status: Pen, Time: 10:20 AM FUV, Provider: Carmen Neely, Status: Pen, Time: 10:20 AM [facility] [employer] [address] DO Work Phone: Start: 04-25-2022 End: 06-25-2022 CREATININE BLD CREATININE BLD Lab Routine Oropharnyx cancer (HCC) Expected: 04/25/2022 (Approximate), Expires: 06/25/2022 [facility] Work Phone: Comment on above: Expected: 04/25/2022 (Approximate), Expires: 06/25/2022 Start: 04-06-2022 PNEUMOCOCCAL (3 - PPSV23 if available, else PCV20) PNEUMOCOCCAL (3 - PPSV23 if available, else PCV20) [facility] Start: 04-06-2022 PNEUMOCOCCAL (3 - PPSV23 or PCV20) PNEUMOCOCCAL (3 - PPSV23 or PCV20) [facility] Start: 01-13-2022 STRESS NUC, Provider : KELSEY GUERREROI NUCLEAR 01,[id number], Status: Pen, Time: 12:00 PM STRESS NUC, Provider: KELSEY HHVI NUCLEAR 01,[id number], Status: Pen, Time: 12:00 PM [facility] Work Phone: Start: 01-13-2022 ECHO, Provider: KELSEY GUERREROI ULTRASOUND 01,[id number], Status: Pen, Time: 10:45 AM ECHO, Provider: KELSEY GUERREROI ULTRASOUND 01,[id number], Status: Pen, Time: 10:45 AM [facility] DO Work Phone: Start: 01-03-2022 End: 03-05-2022 CBC W Auto Differential panel - Blood CBC + DIFF Lab Routine Malaise and fatigue Oropharnyx cancer (HCC) Expected: 01/03/2022, Expires: 03/05/2022 [facility] Work Phone: Comment on above: Expected: 01/03/2022 , Expires: 03/05/2022 Start: 01-03-2022 End: 03-05-2022 Comprehensive metabolic 2000 panel - Serum or Plasma COMP METABOLIC PANEL Lab Routine Malaise and fatigue Oropharnyx cancer (HCC) Expected: 01/03/2022, Expires: 03/05/2022 [facility] Work Phone: Comment on above: Expected: 01/03/2022 , Expires: 03/05/2022 Start: 01-03-2022 End: 03-05-2022 T4/FTI/T4U T4/FTI/T4U Lab Routine Malaise and fatigue Oropharnyx cancer (HCC) Expected: 01/03/2022, Expires: 03/05/2022 [facility] Work Phone: Comment on above: Expected: 01/03/2022 , Expires: 03/05/2022 Start: 01-03-2022 End: 03-05-2022 Thyrotropin [Units/volume] in Serum or Plasma TSH BLD Lab Routine Malaise and fatigue Oropharnyx cancer (HCC) Expected: 01/03/2022, Expires: 03/05/2022 [facility] Work Phone: Comment on above: Expected: 01/03/2022 , Expires: 03/05/2022 Start: 01-02-2022 Influenza vaccination INFLUENZA (#1) [facility] Start: 12-26-2021 End: 02-25-2022 Thyrotropin [Units/volume] in Serum or Plasma TSH BLD Lab Routine Oropharnyx cancer (HCC) Expected: 12/26/2021, Expires: 02/25/2022 [facility] Work Phone: Comment on above: Expected: 12/26/2021 , Expires: 02/25/2022 Start: 12-26-2021 End: 02-25-2022 Thyroxine (T4) [Mass/volume] in Serum or Plasma T4/THYROXINE BLOOD Lab Routine Oropharnyx cancer (HCC) Expected: 12/26/2021, Expires: 02/25/2022 [facility] Work Phone: Comment on above: Expected: 12/26/2021 , Expires: 02/25/2022 Start: 12-22-2021 End: 12-21-2022 NM PET/CT SKULL-THIGH SUBSEQUENT NM PET/CT SKULL-THIGH SUBSEQUENT Radiology Routine Oropharnyx cancer (HCC) Expected: 12/22/2021, Expires: 12/21/2022 [facility] Work Phone: Comment on above: Expected: 12/22/2021 , Expires: 12/21/2022 Start: 09-24-2021 End: 11-24-2021 Basic metabolic 2000 panel - Serum or Plasma BASIC METABOLIC PNL Lab Routine Oropharnyx cancer (HCC) Expected: 09/24/2021, Expires: 11/24/2021 [facility] Work Phone: Comment on above: Expected: 09/24/2021 , Expires: 11/24/2021 Start: 09-24-2021 End: 11-24-2021 CBC W Auto Differential panel - Blood CBC + DIFF Lab Routine Oropharnyx cancer (HCC) Expected: 09/24/2021, Expires: 11/24/2021 [facility] Work Phone: Comment on above: Expected: 09/24/2021 , Expires: 11/24/2021 Start: 09-16-2021 End: 11-16-2021 CBC W Auto Differential panel - Blood CBC + DIFF Lab Routine Lower abdominal pain Cancer of base of tongue (HCC) Nausea Expected: 09/16/2021, Expires: 11/16/2021 [facility] Work Phone: Comment on above: Expected: 09/16/2021 , Expires: 11/16/2021 Start: 09-16-2021 End: 11-16-2021 Comprehensive metabolic 2000 panel - Serum or Plasma COMP METABOLIC PANEL Lab Routine Lower abdominal pain Cancer of base of tongue (HCC) Nausea Expected: 09/16/2021, Expires: 11/16/2021 [facility] Work Phone: Comment on above: Expected: 09/16/2021 , Expires: 11/16/2021 Start: 09-02-2021 End: 11-02-2021 CBC W Auto Differential panel - Blood [facility] Work Phone: Comment on above: Expected: 09/02/2021 , Expires: 11/02/2021 Start: 09-02-2021 End: 11-02-2021 Comprehensive metabolic 2000 panel - Serum or Plasma [facility] Work Phone: Comment on above: Expected: [...] unspecified type Tachycardia Expected: 08/26/2021, Expires: 10/26/2021 [facility] Work Phone: Comment on above: Expected: [...] unspecified type Tachycardia Expected: 08/26/2021, Expires: 10/26/2021 [facility] Work Phone: Comment on above: Expected: 08/26/2021 , Expires: 10/26/2021 Start: 08-12-2021 End: 10-12-2021 CBC W Auto Differential panel - Blood CBC + DIFF Lab Routine Cancer of base of tongue (HCC) Malaise and fatigue Expected: 08/12/2021, Expires: 10/12/2021 [facility] Work Phone: Comment on above: Expected: 08/12/2021 , Expires: 10/12/2021 Start: 08-12-2021 End: 10-12-2021 Comprehensive metabolic 2000 panel - Serum or Plasma COMP METABOLIC PANEL Lab Routine Cancer of base of tongue (HCC) Malaise and fatigue Expected: 08/12/2021, Expires: 10/12/2021 [facility] Work Phone: Comment on above: Expected: 08/12/2021 , Expires: 10/12/2021 Start: 08-12-2021 End: 10-12-2021 T4/FTI/T4U T4/FTI/T4U Lab Routine Cancer of base of tongue (HCC) Malaise and fatigue Expected: 08/12/2021, Expires: 10/12/2021 [facility] Work Phone: Comment on above: Expected: 08/12/2021 , Expires: 10/12/2021 Start: 08-12-2021 End: 10-12-2021 Thyrotropin [Units/volume] in Serum or Plasma TSH BLD Lab Routine Cancer of base of tongue (HCC) Malaise and fatigue Expected: 08/12/2021, Expires: 10/12/2021 [facility] Work Phone: Comment on above: Expected: 08/12/2021 , Expires: 10/12/2021 Start: 08-01-2021 End: 10-01-2021 CBC W Auto Differential panel - Blood CBC + DIFF Lab Routine Cancer of base of tongue (HCC) Malaise and fatigue Expected: 08/01/2021, Expires: 10/01/2021 [facility] Work Phone: Comment on above: Expected: 08/01/2021 , Expires: 10/01/2021 Start: 08-01-2021 End: 10-01-2021 Comprehensive metabolic 2000 panel - Serum or Plasma COMP METABOLIC PANEL Lab Routine Cancer of base of tongue (HCC) Malaise and fatigue Expected: 08/01/2021, Expires: 10/01/2021 [facility] Work Phone: Comment on above: Expected: 08/01/2021 , Expires: 10/01/2021 Start: 08-01-2021 End: 10-01-2021 T4/FTI/T4U T4/FTI/T4U Lab Routine Cancer of base of tongue (HCC) Malaise and fatigue Expected: 08/01/2021, Expires: 10/01/2021 [facility] Work Phone: Comment on above: Expected: 08/01/2021 , Expires: 10/01/2021 Start: 08-01-2021 End: 10-01-2021 Thyrotropin [Units/volume] in Serum or Plasma TSH BLD Lab Routine Cancer of base of tongue (HCC) Malaise and fatigue Expected: 08/01/2021, Expires: 10/01/2021 [facility] Work Phone: Comment on above: Expected: 08/01/2021 , Expires: 10/01/2021 Start: 03-22-2021 COVID-19 VACCINE (4 - Booster) COVID-19 VACCINE (4 - Booster) [facility] Start: 03-14-2021 COVID-19 VACCINE (4 - Booster) COVID-19 VACCINE (4 - Booster) [facility] Start: 02-14-2021 COVID-19 VACCINE (4 - Booster) COVID-19 VACCINE (4 - Booster) [facility] Start: 2020 RSV Vaccine (1 - 1-d ose 60+ series) RSV Vaccine (1 - 1-dose 60+ series) [facility] Start: 07-09-2018 SHINGRIX VACCINE (2 of 2) SHINGRIX VACCINE (2 of 2) [facility] Start: 07-09-2018 Zoster Vaccines (2 o f 2) Zoster Vaccines (2 of 2) [facility] Start: 09-19-2015 PROSTATE CANCER SCREENING DISCUSSION PROSTATE CANCER SCREENING DISCUSSION [facility] Start: 09-19-2015 Prostate specific antigen measurement Prostate Cancer Screening Discussion [facility] Start: 2010 SHINGRIX VACCINE (1 of 2) SHINGRIX VACCINE (1 of 2) [facility] Start: 2005 COLOGUARD (FIT-DNA) COLOGUARD (FIT-D NA) [facility] Start: 2005 Colonoscopy COLONOSCOPY [facility] Start: 2005 COLORECTAL CANCER SCREENING COLORECTAL CANCER SCREENING [facility] Start: [address] COLONOGRAPHY [facility] Start: 2005 FECAL OCCULT BLOOD FECAL OCCULT BLOO D [facility] Start: 2005 Screening for malign ant neoplasm of colon [facility] Start: 2005 SIGMOIDOSCOPY SIGMOIDOSCOPY [facility] Start: 09-19-1995 Lipid 1996 panel - Serum or Plasma Lipid Screening [facility] Start: 09-19-1995 Lipid panel Lipid Screening [facility] Start: 09-19-1995 LIPID SCREEN LIPID SCREEN [facility] Start: 1990 Zoledronic acid therapy ALPHA- 1 ANTITRYPSIN DEFICIENCY SCREENING [facility] Start: 09-19-1979 Urine microalbumin profile DTAP,TDAP,TD (1 - Tdap) [facility] Start: 1978 ANNUAL PCP 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 Start: 1978 HIV SCREENING HIV SCREENING [facility] Start: 1978 HIV screening HIV Screening [facility] Start: 1978 SPIROMETRY SPIROMETRY [facility] Start: 1961 MMR Vaccines (1 of 1 - Standard series) MMR Vaccines (1 of 1 - Standard series) [facility] Start: 1960 HIV screening HIV Screening [facility] Start: 1960 Lipid panel Lipid Panel [facility] Start: 1960 Medicare Annual Wellness (AWV) Medicare Annual Wellness (AWV) [facility] Start: 1960 Medicare Annual Wellness Visit Medicare Annual Wellness Visit (AWV) [facility] Start: 1960 Screening for malign ant neoplasm of colon [facility] End: 03-27-2023 CT CHEST W IVCON CT CHEST W IVCON Radiology Routine Oropharnyx cancer (HCC) 1 Occurrences starting 02/25/2022 until 03/27/2023 [facility] Work Phone: Comment on above: 1 Occurrences starti ng 02/25/2022 until 03/27/2023 End: 03-27-2023 Ct soft tissue neck w/contrast material CT NECK SOFT TISSUE W IVCON Radiology Routine Oropharnyx cancer (HCC) 1 Occurrences starting 02/25/2022 until 03/27/2023 [facility] Work Phone: Comment on above: 1 Occurrences starti ng 02/25/2022 until 03/27/2023 End: 09-16-2024 PET+CT Guidance for localization of tumor of Skull base to mid-thigh-- W [id number] IV NM PET/CT SKULL-THIGH SUBSEQUENT Radiology Routine Cancer of base of tongue (HCC) Malaise and fatigue 1 Occurrences starting 08/18/2023 until 09/16/2024 [facility] Work Phone: Comment on above: 1 Occurrences starti ng 08/18/2023 until 09/16/2024 PT PLAN OF CARE CERTIFICATION PT PLAN OF CARE CERTIFICATION Procedures Routine Current smoker Physical deconditioning Ordered: 08/09/2021 [facility] Work Phone: Comment on above: Ordered: 08/09/2021 End: 10-16-2022 Radiologic exam abdomen 2 views XR ABDOMEN 2V ROUTINE SUPINE W UPRIGHT/DECUB/CTL Radiology Routine Lower abdominal pain 1 Occurrences starting 09/16/2021 until 10/16/2022 [facility] Work Phone: Comment on above: 1 Occurrences starti ng 09/16/2021 until 10/16/2022 End: 07-07-2025 XR Shoulder - right 3 Views XR SHOULDER GENERAL 3V OR MORE AP/TRUE AP/OTHER RIGHT Radiology Routine Pain 1 Occurrences starting 06/07/2024 until 07/07/2025 [facility] Work Phone: Comment on above: 1 Occurrences starti ng 06/07/2024 until 07/07/2025 [facility] c [facility] c [facility] c [facility] c [facility] c [facility] c [facility] Immunizations Immunization Date Immunization Notes Care Provider [facility] 02-29-2024 influenza, seasonal, injectable, preservative free Gildardo Lacy MD Work Phone: [facility] 07-22-2023 respiratory syncytia l virus (RSV) vaccine, adjuvanted (AREXVY) Esdras Cash MD Work Phone: [facility] 07-22-2023 zoster vaccine recombinant B lyssa Cash MD Work Phone: [facility] 05-27-2023 Influenza, injectabl e, Madin Carmen Canine Kidney, preservative free, quadrivalent Esdras Cash MD Work Phone: [facility] 05-27-2023 influenza virus vacc ine, unspecified formulation DENIA Carpenter MD Work Phone: [facility] 02-18-2022 influenza, injectabl e, quadrivalent, preservative free Esdras Cash MD Work Phone: [facility] 02-18-2022 influenza virus vacc ine, unspecified formulation DENIA Carpenter MD Work Phone: [facility] 03-08-2021 influenza, injectabl e, quadrivalent, preservative free Esdras Cash MD Work Phone: [facility] 12-20-2020 COVID-19 vaccine (UNSPECIFIED) Esdras Cash MD Work Phone: [facility] 12-20-2020 COVID-19 vaccine, ag e 12+ yr ([facility] - [facility]) Nathaly Biggs APRN.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 Work Phone: [facility] 08-01-2020 COVID-19 vaccine, ag e 12+ yr ([facility] Esdras Cash MD Work Phone: [facility] 07-11-2020 COVID-19 vaccine (UNSPECIFIED) Esdras Cash MD Work Phone: [facility] 07-11-2020 COVID-19 vaccine, ag e 12+ yr ([facility]) Esdras Cash MD Work Phone: [facility] 03-09-2020 influenza, injectabl e, quadrivalent, preservative free Esdras Cash MD Work Phone: [facility] 03-04-2020 influenza, seasonal, injectable Esdras Cash MD Work Phone: [facility] 02-04-2019 influenza, injectabl e, quadrivalent, preservative free Esdras Cash MD Work Phone: [facility] 05-14-2018 tetanus toxoid, redu heron diphtheria toxoid, and acellular pertussis vaccine, adsorbed Amira Andre [facility] 05-14-2018 zoster vaccine recombinant Amira Scot t [facility] 01-31-2018 haemophilus influenz ae type b vaccine, PRP-T conjugate Esdras Cash MD Work Phone: [facility] 01-31-2018 meningococcal B vacc ine, recombinant, OMV, adjuvanted Esdras Cash MD Work Phone: [facility] 01-31-2018 meningococcal oligosaccharide (groups A, C, Y and W-135) diphtheria toxoid conjugate vaccine (MCV4O) Esdras Cash MD Work Phone: [facility] 01-31-2018 meningococcal polysaccharide (groups A, C, Y and W-135) diphtheria toxoid conjugate vaccine (MCV4P) Esdras Cash MD Work Phone: [facility] 01-31-2018 pneumococcal conjuga te vaccine, 13 valent Esdras Cash MD Work Phone: [facility] 01-27-2018 influenza, injectabl e, quadrivalent, preservative free Esdras Cash MD Work Phone: [facility] 04-06-2017 influenza, injectabl e, quadrivalent, contains preservative Esdras Cash MD Work Phone: [facility] 04-06-2017 pneumococcal polysaccharide vaccine, 23 valent Esdras Cash MD Work Phone: [facility] Payers Date Payer Category Payer Self-pay [id number] 2022 Medicare (Managed Care) [id number]. [id number] 2019 Medicare HUMANA MEDICARE HUMANA MEDICARE PPO [id number] 2019-Present [phone] [facility] [id number] [place] [address] PPO [id number] 2019 Medicare [id number] 2018 Unknown [id number] 2016 Private Health Insurance [id number] 1960 Unknown [id number] 2.16.840.1.238361.3.579.2 .93 1960 Unknown [id number] 2.16.840.1.282214.3.579.2 .175 1960 Unknown [id number] 2.16.840.1.418314.3.579.2 .647 1960 Unknown [id number] 2.16.840.1.426631.3.579.2 .647 1960 Unknown [id number] 2.16.840.1.996404.3.579.2 .1068 1960 Unknown [id number] 2.16.840.1.079123.3.579.2 .356 1960 Unknown [id number] 2.16.840.1.893639.3.579.2 .356 1960 Unknown [id number] 2.16.840.1.960148.3.579.2 .593 1960 Unknown [id number] 2.16.840.1.370429.3.579.2 .593 1960 Unknown [id number] 2.16.840.1.677990.3.579.2 .593 1960 Unknown [id number] 2.16.840.1.340359.3.579.2 .593 1960 Unknown [id number] 2.16.840.1.637942.3.579.2 .593 1960 Unknown [id number] 2.16.840.1.575939.3.579.2 .593 1960 Unknown [id number] 2.16.840.1.301741.3.579.2 .593 1960 Unknown [id number] 2.16.840.1.834129.3.579.2 .593 1960 Unknown [id number] 2.16.840.1.920939.3.579.2 .1286 1960 Unknown [id number] 2.16.840.1.104868.3.579.2 .1244 1960 Unknown [id number] 2.16.840.1.873127.3.579.2 .1244 1960 Unknown [id number] 2.16.840.1.900063.3.579.2 .1259 1960 Unknown [id number] 2.16.840.1.643738.3.579.2 .1259 1960 Unknown [id number] 2.16.840.1.937799.3.579.2 .1259 1961 Unknown [id number] 2.16.840.1.092076.3.579.2 .1258 1960 Unknown [id number] 2.16.840.1.024319.3.579.2 .1258 1960 Unknown [id number] 2.16.840.1.009083.3.579.2 .1258 1960 Unknown [id number] 2.16.840.1.315163.3.579.2 .1258 1960 Unknown [id number] 2.16.840.1.756364.3.579.2 .1258 1960 Unknown [id number] 2.16.840.1.698360.3.579.2 .1258 1960 Unknown [id number] 2.16.840.1.253080.3.579.2 .1258 1960 Unknown [id number] 1960 Unknown [id number] 1960 Unknown [id number] 1959 Private Health Insurance [id number] Unknown Unknown HCAP/HFA/FAP Active [id number] Unknown [id number] Social History Date Type Detail Facility Start: 07-27-2020 End: 11-02-2023 Tobacco smoking status NHIS Smokes tobacco daily [facility] Start: 06-12-2024 History of tobacco use Cigarette Smo ker [facility] Start: 07-27-2020 End: 09-16-2022 Cigarettes smoked current (pack per day) - Reported 1 [facility] Comment on above: 1 pack of cigarettes every 4-5 days; quit 05/22/22; Start: 07-27-2020 End: 06-21-2024 Tobacco use and exposure Smokeless tobacco non-user [facility] Start: 07-30-2021 End: 06-21-2024 Alcohol intake Current drinker of alcohol (finding) [facility] Start: 06-11-2021 History SDOH Alcohol Comment not weekly [facility] Start: 06-11-2021 End: 01-16-2022 Tobacco Comment down to 05/13 ppd [facility] Start: 1960 Sex Assigned At Not on file [facility] Start: 02-18-2021 End: 11-17-2023 Exposure to SARS-CoV-2 (event) Not sure [facility] History of tobacco use Passive smoker [facility] Start: 09-16-2022 End: 06-10-2024 Tobacco use panel [facility] Adult Depression Screening Assessment 1 [facility] Start: 05-06-2023 End: 11-17-2023 Alcohol intake Lifetime non-drinker (finding) [facility] Work Phone: Start: 06-12-2024 Tobacco smoking stat [facility] Smoker (finding) [facility] Start: 1960 Sex Assigned At Male F [facility] Start: 07-27-2020 Alcohol Comment rarely [facility] Start: 10-25-2022 Tobacco Comment 11-20 cigarettes a d ay [facility] Start: 10-25-2022 Alcohol Comment Caffine intake: none [facility] Start: 06-21-2024 [facility] Start: 06-21-2024 Tobacco Comment Quit 06/12/24 [facility] Functional Status Date Assessment Result Facility 11-27-2021 PHQ-9 [id number] Mild (5-9) MP-[facility] 250 DO Work Phone: 06-28-2021 Are you deaf, or do you have serious difficulty hearing No 06/28/2021 12:57 PM Loree Matias RN No [facility] 06-28-2021 Are you blind, or do you have serious difficulty seeing, even when wearing glasses No 06/28/2021 12:57 PM Loree Matias RN No [facility] 06-28-2021 Do you have serious difficulty walking or climbing stairs No 06/28/2021 12:57 PM Loree Matias RN No [facility] 06-28-2021 Do you have difficul ty dressing or bathing No 06/28/2021 12:57 PM Loree Matias, SCOTT No [facility] 06-28-2021 Because of a physica l, mental, or emotional condition, do you have difficulty doing errands alone such as visiting a physician's office or shopping No 06/28/2021 12:57 PM Loree Matias RN No [facility] Mental Status Date Assessment Result Facility 06-28-2021 Because of a physica l, mental, or emotional condition, do you have serious difficulty concentrating, remembering, or making decisions No 06/28/2021 12:57 PM Loree Matias, SCOTT No [facility] Clinical Notes 11-27-2014 to 06-21-2024 Kathrine Carpenter [...] oropharynx, 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, [id number] RADIATION SUMMARY: Course 1: DATES OF TREATMENT: [...] oropharynx, 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, [id number], with recurrence right neck status post right radical neck dissection and salvage right neck radiation completed September 26, 2021. Doing fairly well. No evidence of recurrence. Stable right neck soft tissue changes from prior radiation treatment/retreatment. Continue conservative care. Plan to see patient back in 6 months. Signed by: Kathirne Carpenter MD cc: Gildardo Lacy MD ([facility]) [address] [place] [address] Dr. Bagley documented in this encounter [facility] 06-21-2024 Note HNO ID: [id number] Author: Kathrine CARPENTER MD Service: ? 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 [facility] 06-10-2024 History of Present illness Narrative SHOULDER/ELBOW INITIAL CONSULT SERVICE DATE: 06/09/2024 PCP: Gildardo Lacy MD REFERRING PROVIDER: EMILIE Spicer [address] [facility] [address] [facility] [address] Consult requested for an opinion regarding the evaluation and treatment of the above. My final impression and recommendations will be communicated back to the requesting physician by way of the shared medical record or letter via [place] mail. CHIEF COMPLAINT: Right shoulder pain SUBJECTIVE HISTORY OF PRESENT ILLNESS: 63 year old male, who presents for the above CC. Patient is a krcmw-rsut-haejtrwm 63-year-old male with past medical history of [...] without relief. Has been taking Tylenol and jgvi-zym-krlrwhw medications. Pain is improved when he is [...] Attack (Tia) Copd (Chronic Obstructive Pulmonary Disease) ([facility]) Current Smoker Gerd (Gastroesophageal Reflux Disease) Prediabetes [...] Hebert Miguel MD documented in this encounter [facility] 06-10-2024 Note HNO ID: [id number] Author: HEBERT MIGUEL MD Service: ? Author Type: Physician Type: Progress Notes Filed: 06/10/2024 17:06 Note Text: SHOULDER/ELBOW INITIAL CONSULT SERVICE DATE: 06/09/2024 PCP: Gildardo Lacy MD REFERRING PROVIDER: EMILIE Spicer [address] [place] [address] [address] [facility] [address] Consult requested for an opinion regarding the evaluation and treatment of the above. My final impression and recommendations will be communicated back to the requesting physician by way of the shared medical record or letter via US mail. CHIEF COMPLAINT: Right shoulder pain SUBJECTIVE HISTORY OF PRESENT ILLNESS: 63 year old male, who presents for the above CC. Patient is a swwqr-cvlm-ikvhteso 63-year-old male with past medical history of [...] without relief. Has been taking Tylenol and wsnw-ecz-lwxnpnf medications. Pain is improved when he is [...] instructed as neede (more content not included)... [facility] 06-10-2024 History of Present illness Narrative Radiology [...] PATIENT PRESENTS WITH AN IMPLANTABLE OR ATTACHED CAMERA REPAIRER: No RADIOLOGY DEPARTMENT: General X-ray: Exam(s) Completed: Upper Extremity X-Ray(s): Shoulder, AP / TRUE AP / VELPEAU right PERIPHERAL IV DATA: Not applicable SIGNED BY: RT Luis(Phil) June 10, 2024 2:42 PM documented in this encounter [facility] 06-10-2024 Note HNO ID: [id number] Author: TAYLER VICK RT(Phil) Service: Radiology Author [...] PATIENT PRESENTS WITH AN IMPLANTABLE OR ATTACHED CAMERA REPAIRER: No RADIOLOGY DEPARTMENT: General X-ray: Exam(s) Completed: Upper Extremity X-Ray(s): Shoulder, AP / TRUE AP / VELPEAU right PERIPHERAL IV DATA: Not applicable SIGNED BY: Tayler Vick, RT(R) June 10, 2024 2:42 PM [facility] 06-01-2024 History of Present illness Narrative Associated [...] around the house. documented in this encounter [facility] 05-26-2024 Telephone encounter Note [facility] 05-26-2024 Miscellaneous Notes documented in this encounter [facility] 05-24-2024 History of Present illness Narrative Images [...] MR [place] [address] Magnetic Resonance Report Signed Patient: ALEJO FLOYD MR#: [id number] : 1960 Acct:[id number] Age/Sex: 63 / M ADM Date: 05/20/24 Loc: MRI Attending Dr: Cassie PHAN Ordering Physician: Cassie Hood Date of Service: 05/20/24 Procedure(s): MR shoulder RT wo con Accession Number(s): [id number] cc: Cassie Hood; Gildardo Lacy M.D. [place] [address] Patient Name: ALEJO FLOYD MRN: [id number] date: 1960 Sex: M Assigned Patient Location: MRI Current Patient Location: MRI Accession/Order Number: [id number] Exam Date: 05/20/2024 09:45 Report Date: 05/20/2024 [...] Signed By: 05/20/24 1501 DD/ 1459 TD/TT: Car Hop: Procedures Orders Placed This Encounter Procedures Ambulatory [...] rotator cuff, and an MRI performed at [facility] confirms retraction and tear. The case was discussed with Dr. Wade regarding surgical and nonsurgical treatment. He is in moderate to significant pain daily with his shoulder, and Dr. Wade is recommending evaluation by a shoulder specialist for potential reverse total shoulder. He is agreeable with referral and prefers [facility] as he has had cancer treatment through [...] A referral will be placed to the [facility] for further evaluation and treatment. His MRI at the [facility] has been pushed to the PACS system for [facility]. PROCEDURE The patient underwent right shoulder arthroscopy with repair of the rotator cuff. Questions answered in laymen terms at the bedside. The diagnosis, home exercise plan and any ongoing restrictions/ recommendations reviewed. If unable to be reached in office, I recommend evaluation at nearest Emergency Room if any symptoms worsened or new symptoms develop for requiring urgent evaluation. documented in this encounter [facility] 05-12-2024 Telephone encounter Note Left msg for Cheryle stating that the order is for [facility]. Our referral dept did precert for [facility] for some reason. I told Cheryle she will have to just call the insurance company and have them change the Facility. She will call back if any additional info is needed [facility] 05-12-2024 Miscellaneous Notes Left msg for Cheryle stating that the order is for [facility]. Our referral dept did precert for [facility] for some reason. I told Cheryle she will have to just call the insurance company and have them change the Facility. She will call back if any additional info is needed Cheryle at [facility] left vm returning call from Maggi. She stated that we need to change the order to [facility] instead of [facility]. Please call Cheryle back at [phone] ext [phone]. documented in this encounter [facility] 05-12-2024 Telephone encounter Note Cheryle at [facility] left vm returning call from Maggi. She stated that we need to change the order to [facility] instead of [facility]. Please call Cheryle back at [phone] ext [phone]. [facility] 05-06-2024 History of Present illness Narrative Images [...] THERAPY DONE 2 TIMES A WEEK IN [place]. DENIES SWELLING. DENIES N/T. PT IS TAKING [...] requiring urgent evaluation. documented in this encounter [facility] 04-21-2024 Telephone encounter Note [facility] 04-21-2024 Miscellaneous Notes documented in this encounter [facility] 04-12-2024 History of Present illness Narrative Associated [...] 2 views left documented in this encounter [facility] 04-04-2024 Telephone encounter Note The following approved medication requests have been transmitted electronically. Requested Prescriptions Signed Prescriptions Disp Refills megestrol (MEGACE) 400 mg/10 mL (40 mg/mL) suspension 480 mL 1 Sig: take 20 milliliters by mouth once daily Authorizing Provider: NATHALY BIGGS APRN.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 [facility] 04-04-2024 Miscellaneous Notes The following approved medication requests have been transmitted electronically. Requested Prescriptions Signed Prescriptions Disp Refills megestrol (MEGACE) 400 mg/10 mL (40 mg/mL) suspension 480 mL 1 Sig: take 20 milliliters by mouth once daily Authorizing Provider: NATHALY BIGGS APRN.CNP documented in this encounter [facility] 03-23-2024 History of Present illness Narrative Images [...] A note was given to take to [facility] therapy to increase his range of motion [...] requiring urgent evaluation. documented in this encounter [facility] 02-29-2024 History of Present illness Narrative Associated Problem(s): COPD (chronic obstructive pulmonary disease) ([facility]) Recent exacerbation but improved. Resume breo and use albuterol PRN. Images from the original note were not included. Subjective Patient ID: Alejo Floyd is a 63 y.o. male who presents for Follow-up (Er f/u). ER follow up from 02/17 for COPD exacerbation. Developed severe SOB and chest tightness. [place] like not able to take deep breath [...] This Visit COPD (chronic obstructive pulmonary disease) ([facility]) - Primary Recent exacerbation but improved. Resume breo and use albuterol PRN. Relevant Medications Fluticasone Furoate-Vilanterol (Breo Ellipta) 100-25 MCG/ACT aerosol powder albuterol (2.5 MG/3ML) 0.083% nebulizer solution Other Visit Diagnoses Need for immunization against influenza Relevant Orders Flu vaccine greater than or equal to 3 years old, preservative free IM (Completed) documented in this encounter [facility] 02-23-2024 History of Present illness Narrative Images [...] pt would like to do therapy at [facility]... therapy order given.. pt verbalized he must [...] requiring urgent evaluation. documented in this encounter [facility] 02-23-2024 Instructions EMILIE Spicer - 02/23/2024 11:00 [...] soon as possible documented in this encounter [facility] 02-08-2024 Telephone encounter Note Post op pain rx. PDMP reviewed [facility] Work Phone: 10-07-2024 Miscellaneous Notes Post op pain rx. PDMP reviewed documented in this encounter [facility] 02-02-2024 History of Present illness Narrative Images from the original note were not included. GENERAL HISTORY AND PHYSICAL: NAME: Alejo Floyd : 1960 HISTORY OF PRESENT ILLNESS: [...] SX INSTRUCTIONS GIVEN TODAY 02/01 @9:30AM - [place] DR. LACY CLEARANCE ; OBTAINED ULTRASLING GIVEN TODAY ARTHREX NOTIFIED PA APPROVED ([id number]) Patient presents today for fitting of right [...] Follow up for 02/22 @11AM W/DEMETRIO IN [place]. documented in this encounter [facility] 01-14-2024 Telephone encounter Note LEFT VM WITH DR. LACY'S OFFICE WE NEED CLEARANCE PRIOR TO SCHEDULING. CALLED PATIENT AND INFORMED HIM. HE IS UNDERSTANDING THAT ONCE WE OBTAIN CLEARANCE I WILL CALL TO SCHEDULE SX. [facility] 01-14-2024 Miscellaneous Notes LEFT VM WITH DR. LACY'S OFFICE WE NEED CLEARANCE PRIOR TO SCHEDULING. CALLED PATIENT AND INFORMED HIM. HE IS UNDERSTANDING THAT ONCE WE OBTAIN CLEARANCE I WILL CALL TO SCHEDULE SX. Patient called regarding a scheduling surgery? documented in this encounter [facility] 01-11-2024 Telephone encounter Note Patient called regarding a scheduling surgery? [facility] 12-28-2023 History of Present illness Narrative Images from the original note were not included. HISTORY OF PRESENT ILLNESS: EST PT Alejo Floyd is an 63 y.o. @ male. EST PT RECHECK RT SHOULDER- HERE FOR MRI RT SHOULDER RESULTS [facility] 12/22/23 XRAY RT SHOULDER EPIC 11/02/23 MRI RT SHOULDER 12/22/23 [facility] S/P (R) SHOULDER SCOPE 06/27/22 - DR CHEN S/P RT SHOULDER NICOLE 11/28/22- DR CHEN CORTISONE INJ 11/02/23 S/P MDP 10/27/22 S/P PHYSICAL THERAPY [facility] PREVIOUS PHYSICAL THERAPY @ [facility] ; S/P SCOPE CONTINUES TO HAVE PAIN- [...] Martin Chen D.O. 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) [address] [place] [address] Dr. Bagley documented in this encounter [facility] 12-22-2023 Note HNO ID: [id number] Author: Kathrine CARPENTER MD Service: ? 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 [facility] 12-21-2023 Note HNO ID: [id number] Author: ESDRAS CASH MD Service: ? Author [...] dissection FINAL DIAGNOS (more content not included)... [facility] 12-21-2023 History of Present illness Narrative PATIENT [...] No date: COPD (chronic obstructive pulmonary disease) ([facility]) No date: Depression No date: Other emphysema [...] for carcinoma. 07/17/2020 Base of tongue biopsy ([facility]) Invasive squamous cell carcinoma HPV negative LABS: [...] FDG avid osseous lesion. 2021 CT abdomen/pelvis ([facility]) Distal small bowel obstruction with fluid-filled dilatation [...] FDG avid neoplastic process.. 07/13/2020 Chest x-ray ([facility]) No acute disease 07/09/2020 CT neck ([facility]) 3.6 x 3.4 x 2.6 cm infiltrative [...] cell carcinoma. The patient was referred to [facility] ENT (Dr. Olivarez), and subsequently underwent a [...] Esdras Cash MD documented in this encounter [facility] 12-15-2023 History of Present illness Narrative Radiology [...] 0920 PATIENT DISCHARGED TO: Ambulatory patient, left [place] department area. A Diagnostic radioactive procedure has taken place, with no further precautions necessary other than routine body substance precautions. More information regarding radiation safety can be found using this link: [email or web address] [email or web address]%20Nucl ear%20Medicine%[email or web address] SIGNATURE: RT Jose Alfredo(Phil) PATIENT NAME: Alejo Floyd DATE: December 15, 2023 TIME: 9:33 AM PAGER/CONTACT #: documented in this encounter [facility] 12-15-2023 Note HNO ID: [id number] Author: CYNTHIA MEADOWS RT(R) Service: ? Author [...] 919 PATIENT DISCHARGED TO: Ambulatory patient, left [place] department area. A Diagnostic radioactive procedure has taken place, with no further precautions necessary other than routine body substance precautions. More information regarding radiation safety can be found using this link: [email or web address] [email or web address]-% 20Diagnostic%20Nuclear%20Medicine %20Procedures.pdf SIGNATURE: RT Jose Alfredo(R) PATIENT NAME: Alejo Floyd DATE: December 15, 2023 TIME: 9:33 AM PAGER/CONTACT #: [facility] 12-15-2023 Note HNO ID: [id number] Author: MARILEE DIAMOND RN Service: ? Author [...] DATE: December 15, 2023 TIME: 9:28 AM [facility] 11-17-2023 History of Present illness Narrative Subjective [...] Rfl: Assessment/Plan 1. PVD (peripheral vascular disease) ([facility]) Follow Up In Cardiology 2. Hyperlipidemia, unspecified [...] discussion and plan. documented in this encounter [facility] Work Phone: 11-17-2023 Instructions Sweetie Hidalgo LPN [...] to the patient. documented in this encounter [facility] Work Phone: 10-14-2023 Note Subjective Patient ID: [...] carotid duplex prior PAD (peripheral artery disease) ([facility]) - [facility] US Segmental [place]; Future - He [...] past 36 hour(s)). No follow-ups on file. [facility] 08-18-2023 Note HNO ID: [id number] Author: Kathrine CARPENTER MD Service: ? 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 No evidence of recurrence. Stable postradiation soft tissue effects. Continue conservative management including Aquaphor for the skin irritation. Otherwise plan for continued close follow-up and surveillance. Signed by: Kathrine Carpenter MD cc: Gildardo Lacy MD ([facility]) [address] [place] [id number] Bag[address] documented in this encounter [facility] 08-17-2023 Note HNO ID: [id number] Author: ESDRAS CASH MD Service: ? Author [...] negative for carcinoma. (more content not included)... [facility] 08-17-2023 History of Present illness Narrative PATIENT [...] for carcinoma. 07/17/2020 Base of tongue biopsy ([facility]) Invasive squamous cell carcinoma HPV negative LABS: [...] FDG avid osseous lesion. 2021 CT abdomen/pelvis ([facility]) Distal small bowel obstruction with fluid-filled dilatation [...] FDG avid neoplastic process.. 07/13/2020 Chest x-ray ([facility]) No acute disease 07/09/2020 CT neck ([facility]) 3.6 x 3.4 x 2.6 cm infiltrative [...] cell carcinoma. The patient was referred to [facility]NT (Dr. Olivarez), and subsequently underwent a [...] Esdras Cash MD documented in this encounter [facility] 06-19-2023 Miscellaneous Notes The following approved medication requests have been transmitted electronically. Requested Prescriptions Signed Prescriptions Disp Refills megestrol (MEGACE) 400 mg/10 mL (40 mg/mL) suspension 480 mL 1 Sig: take 20 milliliters by mouth once daily Authorizing Provider: NATHALY BIGGS APRN.SILVINO documented in this encounter [facility] 05-06-2023 History of Present illness Narrative Subjective [...] Carmen Neely MD. documented in this encounter [facility] Work Phone: 05-06-2023 Instructions Eve Lee LPN [...] of your visit. documented in this encounter [facility] Work Phone: 02-13-2023 Miscellaneous Notes Patient notified [...] If in agreement please refer to our inbound customer service agent. I will see him back as scheduled. documented in this encounter [facility] 02-11-2023 History of Present illness Narrative RADIOLOGY [...] 1250 PATIENT DISCHARGED TO: Ambulatory patient, left [place] department area. A Diagnostic radioactive procedure has taken place, with no further precautions necessary other than routine body substance precautions. 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 Patient with recent weight loss, no obvious cause. Imaging with PET ordered. No clinical evidence of progression. Plan to see patient back after imaging. Signed by: Kathrine Carpenter MD cc: Gildardo Lacy MD (DrC) [address] [place] [address] Dr. Bagley documented in this encounter [facility] 09-10-2022 History of Present illness Narrative Radiology [...] 2022 8:39 AM documented in this encounter [facility] 08-12-2022 Miscellaneous Notes Please sign pended CRE for CT. Thank you, Farida documented in this encounter [facility] 05-20-2022 History of Present illness Narrative PATIENT [...] for carcinoma. 07/17/2020 Base of tongue biopsy ([facility]) Invasive squamous cell carcinoma HPV negative LABS: [...] FDG avid osseous lesion. 2021 CT abdomen/pelvis ([facility]) Distal small bowel obstruction with fluid-filled dilatation [...] FDG avid neoplastic process.. 07/13/2020 Chest x-ray ([facility]) No acute disease 07/09/2020 CT neck ([facility]) 3.6 x 3.4 x 2.6 cm infiltrative [...] cell carcinoma. The patient was referred to [facility] (Dr. Olivarez), and subsequently underwent a [...] pain. He subsequently was seen at the [place] emergency room on [address] [facility] for suspected small bowel obstruction secondary to an abdominal wall hernia. His acute symptoms resolved with IVF and bowel rest. The patient is aware that his symptoms may recur, in which case surgery may be indicated. Continue management per PCP. 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 Overall doing well. Radiographically and clinically without evidence of recurrence. Plan for follow-up in 3 months. Signed by: Kathrine Carpenter MD cc: Gildardo Lacy MD (DrC) [address] [place] [address] Dr. 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 Patient doing well. No evidence of clinical recurrence. Recommend follow-up in 3 to 3 months, recommend CT neck and chest at that time. Signed by: Kathrine Carpenter MD cc: Gildardo Lacy MD ([facility]) [address] [place] [address] Dr. Bagley documented in this encounter [facility] 02-18-2022 Nurse Note Patient Identification confirmed: yes. Injection given and documented on JUL per provider order. Alejo Griffiths documented in this encounter [facility] 02-18-2022 History of Present illness Narrative PATIENT [...] for carcinoma. 07/17/2020 Base of tongue biopsy ([facility]) Invasive squamous cell carcinoma HPV negative LABS: [...] FDG avid osseous lesion. 2021 CT abdomen/pelvis ([facility]) Distal small bowel obstruction with fluid-filled dilatation [...] FDG avid neoplastic process.. 07/13/2020 Chest x-ray ([facility]) No acute disease 07/09/2020 CT neck ([facility]) 3.6 x 3.4 x 2.6 cm infiltrative [...] cell carcinoma. The patient was referred to [facility] (Dr. Olivarez), and subsequently underwent a [...] pain. He subsequently was seen at the [place] emergency room on 2021 [address] [facility] for suspected small bowel obstruction secondary to an abdominal wall hernia. His acute symptoms resolved with IVF and bowel rest. The patient is aware that his symptoms may recur, in which case surgery may be indicated. Continue management per PCP. 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) [address] [place] [id number] Bagley documented in this encounter [facility] 12-23-2021 History of Present illness Narrative RADIOLOGY [...] 901 PATIENT DISCHARGED TO: Ambulatory patient, left [place] department area. A Diagnostic radioactive procedure has taken place, with no further precautions necessary other than routine body substance precautions. More information regarding radiation safety can be found using this link: [email or web address] SIGNATURE: RT Jose Alfredo(R) PATIENT NAME: Alejo Floyd DATE: December 23, 2021 TIME: 9:50 AM PAGER/CONTACT #: documented in this encounter [facility] 11-26-2021 Miscellaneous Notes The following approved medication [...] prescribe magic mouthwash, Alejo would like to pickling solution maker the prescription at our pharmacy tomorrow. Nathaly will you please address this encounter as Dr. Carpenter and Dr. Cash are both on vacation this week. Please advise. 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 Patient continues to well without clinical evidence of recurrence. He has some soft tissue changes related to radiation treatments but these are stable. Recommend further follow-up with PET scan in 4 weeks. Signed by: Kathrine Carpenter MD cc: Gildardo Lacy MD ([facility]) [address] [place] [address] Dr. Bagley documented in this encounter [facility] 10-16-2021 Note MR#: [id number] [facility] Pt. Name: Alejo Floyd Admitted: 09/19/2021 Discharged: 09/20/2021 Date of : 1960 Physician: Zarina Morgan M.D. DISCHARGE SUMMARY ADMISSION DIAGNOSIS: Small bowel obstruction. DISCHARGE DIAGNOSIS: Small-bowel obstruction, resolving. No consults. No procedures. HISTORY OF PRESENT ILLNESS: 61-year-old male presenting to [facility] as direct admission. The patient presented reporting [...] Amrik/Hood Sepulveda PA-C Date Trans: 10/16/2021 07:27 Carrie/radah [id number] cc: Gildardo Lacy M.D. [address] [facility] [address] [facility] 10-04-2021 History of Present illness Narrative [...] Dosing Weight: 75.4 kg Estimated kilocalorie needs: 6345-3032 kilocalories determined by 25-30 kcal/kg Estimated protein needs: 75-90 grams determined by 1.0-1.2 g/kg Dosing weight Estimated fluid needs: ~4635-2249 milliliters based on 1 mL per kcal [...] MS, RDN, LD documented in this encounter [facility] 10-03-2021 Nurse Note Patient would like something for his diarrhea. Myesha Garcia MA documented in this encounter [facility] 10-03-2021 History of Present illness Narrative PATIENT [...] for carcinoma. 07/17/2020 Base of tongue biopsy ([facility]) Invasive squamous cell carcinoma HPV negative LABS: Hemoglobin (g/dL) Date Value 10/03/2021 10.6 06/28/2021 12.9 Hematocrit (%) Date Value 10/03/2021 32.9 06/28/2021 40.1 WBC (k/uL) Date Value 10/03/2021 4.96 06/28/2021 15.52 Platelet Count (k/uL) Date Value 10/03/2021 159 06/28/2021 398 RADIOLOGY/OTHER STUDIES: 2021 CT abdomen/pelvis ([facility]) Distal small bowel obstruction with fluid-filled dilatation [...] FDG avid neoplastic process.. 07/13/2020 Chest x-ray ([facility]) No acute disease 07/09/2020 CT neck ([facility]) 3.6 x 3.4 x 2.6 cm infiltrative [...] cell carcinoma. The patient was referred to [facility] (Dr. Olivarez), and subsequently underwent a [...] pain. He subsequently was seen at the [place] emergency room on 2021 [address] [facility] for suspected small bowel obstruction secondary to an abdominal wall hernia. His acute symptoms resolved with IVF and bowel rest. The patient is aware that his symptoms may recur, in which case surgery may be indicated. Continue management per PCP. Esdras Cash MD CC: Dr. 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 Olivarez documented in this encounter [facility] 09-25-2021 History of Present illness Narrative Nutrition [...] any N/V/D/C. Pt was recently d/c'd from [facility] for a SBO, no surgical intervention was [...] MS, RDN, LD documented in this encounter [facility] 09-23-2021 Miscellaneous Notes DISCHARGE CALL BACK Today's date: September 23, 2021 Notified of Pt discharge by: Call placed to [facility] for follow up. Patient discharged on 09/21/[address] [facility] to Home Primary Cancer Diagnosis: Oropharnxy Cancer Admitting Diagnosis: SBO Discharge Summary/SBAR reviewed: No - Requested from medical records Handoff Discussed with Transitional Car Park Attendant: No, unavailable Psychosocial Risk Factors: None If [...] Cynthia Cutler RN documented in this encounter [facility] 09-23-2021 Miscellaneous Notes FYI: Pt was dc'd home over the weekend. In today for follow up. Cris: Please scan hospital records from [facility]. Thanks! Cynthia Cutler RN FYI: Pt transferred from [facility] ER to [facility]. Admitted w/ SBO. Spoke w/ his bedside nurse who reports the pt is scheduled for a small bowel follow through today to confirm placement of his NG tube. No additional treatment plans in place at this time. Clerical: Please cancel tomorrow's appointment. Thanks! Cynthia Cutler RN documented in this encounter [facility] 09-23-2021 History of Present illness Narrative PATIENT [...] hold. He subsequently was seen at the [place] emergency room on 2021 [address] [facility] for suspected small bowel obstruction. Apparently his [...] for carcinoma. 07/17/2020 Base of tongue biopsy ([facility]) Invasive squamous cell carcinoma HPV negative LABS: [...] FDG avid neoplastic process.. 07/13/2020 Chest x-ray ([facility]) No acute disease 07/09/2020 CT neck ([facility]) 3.6 x 3.4 x 2.6 cm infiltrative [...] cell carcinoma. The patient was referred to [facility] (Dr. Olivarez), and subsequently underwent a [...] CC: Dr. Bagley documented in this encounter [facility] 2021 Miscellaneous Notes Thank you for the update Anthony Weaver PA-C FYI: Follow up call placed to pt. Still having abdominal pain, nausea, and vomiting. Notes pain is in his upper middle abdomen, just above his umbilicus. Denies diarrhea. Last BM was yesterday. States he getting ready to head to the ER. Report phoned to Dr Arana @ [facility] ER. Last office note and med list faxed to [phone]. Cynthia Cutler RN documented in this encounter [facility] 09-17-2021 Miscellaneous Notes Pt notified of Anthony's [...] Katrin Burton RN documented in this encounter [facility] 09-16-2021 Miscellaneous Notes Pt notified and verbalizes understanding. Cynthia Cutler RN Pt left before completing his Xray today. Will do Xray when here for radiation tomorrow. Anthony instructs to have pt go to ER if his abdominal pain worsens in the meantime. Call placed to pt. No answer. Message left requesting call back. Cynthia Cutler RN documented in this encounter [facility] 09-16-2021 History of Present illness Narrative PATIENT [...] for carcinoma. 07/17/2020 Base of tongue biopsy ([facility]) Invasive squamous cell carcinoma HPV negative LABS: [...] FDG avid neoplastic process.. 07/13/2020 Chest x-ray ([facility]) No acute disease 07/09/2020 CT neck ([facility]) 3.6 x 3.4 x 2.6 cm infiltrative [...] cell carcinoma. The patient was referred to [facility] (Dr. Olivarez), and subsequently underwent a [...] CC: Dr. 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 RIMA Ruelas documented in this encounter [facility] 09-09-2021 History of Present illness Narrative Nutrition [...] MS, RDAleida, LD documented in this encounter [facility] 09-09-2021 Miscellaneous Notes Pt receiving dose 5 carboplatin today and reports that he forgot to mention that my feet are starting to have more tingling. Pt denies recent falls and reports that neuropathy is tolerable. Wanted you to be aware as he doesn't have f/u prior to his next dose. 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 07/17/2020 Base of tongue biopsy ([facility]) Invasive squamous cell carcinoma HPV negative LABS: [...] FDG avid neoplastic process.. 07/13/2020 Chest x-ray ([facility]) No acute disease 07/09/2020 CT neck ([facility]) 3.6 x 3.4 x 2.6 cm infiltrative [...] cell carcinoma. The patient was referred to [facility] (Dr. Olivarez), and subsequently underwent a [...] CC: Dr. Bagley documented in this encounter [facility] 09-02-2021 History of Present illness Narrative . documented in this encounter [facility] 09-02-2021 History of Present illness Narrative PATIENT NAME: Alejo Floyd DATE: 09/02/2021 PRIMARY CARE PHYSICIAN: Dr. [...] for carcinoma. 07/17/2020 Base of tongue biopsy ([facility]) Invasive squamous cell carcinoma HPV negative LABS: [...] FDG avid neoplastic process.. 07/13/2020 Chest x-ray ([facility]) No acute disease 07/09/2020 CT neck ([facility]) 3.6 x 3.4 x 2.6 cm infiltrative [...] cell carcinoma. The patient was referred to [facility] (Dr. Olivarez), and subsequently underwent a [...] CC: Dr. 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 07/17/2020 Base of tongue biopsy ([facility]) Invasive squamous cell carcinoma HPV negative LABS: [...] FDG avid neoplastic process.. 07/13/2020 Chest x-ray ([facility]) No acute disease 07/09/2020 CT neck ([facility]) 3.6 x 3.4 x 2.6 cm infiltrative [...] cell carcinoma. The patient was referred to [facility] (Dr. Olivarez), and subsequently underwent a [...] CC: Dr. Bagley documented in this encounter [facility] 08-15-2021 Miscellaneous Notes CYCLE 1/DAY 1 POST [...] Cynthia Cutler RN documented in this encounter [facility] 08-12-2021 Miscellaneous Notes Pt's chemo ed completed via telephone prior to today's appointment. Pt given the [facility]ocare handout, when to call list, and contact information today. No additional questions noted. 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 07/17/2020 Base of tongue biopsy ([facility]) Invasive squamous cell carcinoma HPV negative LABS: [...] FDG avid neoplastic process.. 07/13/2020 Chest x-ray ([facility]) No acute disease 07/09/2020 CT neck ([facility]) 3.6 x 3.4 x 2.6 cm infiltrative [...] cell carcinoma. The patient was referred to [facility] (Dr. Olivarez), and subsequently underwent a [...] CC: Dr. Bagley documented in this encounter [facility] 08-09-2021 History of Present illness Narrative Episode [...] Planned: 2 Planned Treatment Interventions: Therapeutic exercise (15132);Neuromuscular re-education (33111);Manual therapy (57606);Therapeutic activities (48259);Self-skilled nursing management (11835);Patient/Family/Caregiver Education PLAN FOR NEXT VISIT: Manual and [...] Chung PT, DPT documented in this encounter [facility] 08-05-2021 History of Present illness Narrative ONCOLOGY [...] 08/12. Also informed pt of antiemetics pending pickling solution maker in our pharmacy. Pt verbalizes understanding. Denies any questions or concerns at this time. Time Spent: 17 minutes REFERRAL (RECOMMENDATION): Already established w/ [employer]. 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 Patient has seen my colleague Dr. Green, postoperative reirradiation recommended due to high risk nature of recurrence. Patient offered clinical protocol (ECOG 3191 ) however patient not able to stay in [place] for the duration of treatment seeking to [...] Kathrine Carpenter MD cc: Gildardo Lacy MD ([facility]) [address] [place] [address] Dr. Bagley documented in this encounter [facility] 08-02-2021 Miscellaneous Notes The following approved medication [...] Cynthia Cutler RN documented in this encounter [facility] 08-01-2021 History of Present illness Narrative Nutrition [...] MS, RD, LD documented in this encounter [facility] 08-01-2021 History of Present illness Narrative PATIENT [...] cell carcinoma. The patient was referred to [facility] (Dr. Olivarez), and subsequently underwent a [...] for carcinoma. 07/17/2020 Base of tongue biopsy ([facility]) Invasive squamous cell carcinoma HPV negative LABS: [...] FDG avid neoplastic process.. 07/13/2020 Chest x-ray ([facility]) No acute disease 07/09/2020 CT neck ([facility]) 3.6 x 3.4 x 2.6 cm infiltrative [...] cell carcinoma. The patient was referred to [facility] (Dr. Olivarez), and subsequently underwent a [...] would be eligible for current protocol (ECOG MP4237) randomizing patients to receive reirradiation plus a navajo based chemo versus reirradiation plus pembrolizumab versus [...] CC: Dr. Bagley documented in this encounter [facility] 08-01-2021 History of Present illness Narrative ALEJO FLOYD Tamie [id number] 08/01/2021 [facility] Radiation Oncology Department SIMULATION NOTE DATE OF SIMULATION: 08/01/2021 THERAPIST: Millie Zaman MACHINE: Identia DIAGNOSIS: Malignant neoplasm of base of [id number] AREA: head/neck CONTRAST: IV <Select> 100ML OF [...] NIK 24:32 PM documented in this encounter [facility] 08-01-2021 History of Present illness Narrative ALEJO FLOYD Tamie [id number] 08/01/2021 [facility] Department of Radiation Oncology Treatment Planning [...] M.D. 2:17 PM documented in this encounter [facility] 07-30-2021 Miscellaneous Notes Patient requesting a refill on Megace. States he does have 1 bottle left at home. Erika Martino LPN documented in this encounter [facility] 06-20-2021 Note HNO ID: [id number] Author: Cassie Durham, RT(R) Service: Radiology Author [...] Durham, RT(R) June 20, 2021 3:33 PM [place] [facility] 06-04[facility]21 Note MR#: [id number] [facility] Pt. Name: Alejo Floyd Admitted: 05/27/2021 [...] is a 60-year-old male, who presented to [facility] ER as a transfer from [facility] for evaluation of small-bowel obstruction. He presents at the [place] [facility] for evaluation of 2-3 days of constant abdominal pain, which radiated to the back. Reported nausea and vomiting as well as decreased appetite/oral intake with loose stools in the morning, and he has not been passing any stool or gas since the this morning, the morning of 05/27/2021. At [place], he had a CT of his abdomen [...] was the accepting physician, who transferred to [facility]. The patient arrived with the NG tube, [...] Dodd CNP Date Trans: 06/04/2021 07:42 A/radha PINEDO_[id number] cc: Gildardo Lacy M.D. [address] [place] [address] [facility] 04-05-2021 History of Present illness Narrative [...] 906 PATIENT DISCHARGED TO: Ambulatory patient, left [place] department area. A Diagnostic radioactive procedure has taken place, with no further precautions necessary other than routine body substance precautions. More information regarding radiation safety can be found using this link: [email or web address] SIGNATURE: RT Jose Alfredo(Phil) PATIENT NAME: Alejo Floyd DATE: April 05, 2021 TIME: 9:12 AM PAGER/CONTACT #: documented in this encounter [facility] 04-05-2021 Nurse Note Radiology Service Progress Note [...] DATE: April 05, 2021 TIME: 9:08 AM [facility] Work Phone: 04-05-2021 Nurse Note Radiology Service [...] TIME: 9:08 AM documented in this encounter [facility] 11-30-2014 Chief complaint Narrative - Reported ALEJO FLOYD is being seen for a consultation for SRE.61-year-old -Citizen Of [place] who is in my office for the first time to establish relationship with cardiology. The patient has history of active tobacco abuse and PAD involving mostly the left femoral artery where he had stenting done several years ago in [place]. He has no previous cardiac catheterizations or [...] He would likely benefit from statin therapy [facility] Work Phone: 11-29-2014 Chief complaint Narrative - Reported ALEJO FLOYD is being seen for a consultation for SRE.61-year-old -Citizen Of [place] who is in my office for the first time to establish relationship with cardiology. The patient has history of active tobacco abuse and PAD involving mostly the left femoral artery where he had stenting done several years ago in [place]. He has no previous cardiac catheterizations or [...] He would likely benefit [facility]in [facility] 11-27-2014 Chief complaint Narrative - Reported ALEJO FLOYD is being seen for a consultation for SRE.61-year-old -Citizen Of [place] who is in my office for the first time to establish relationship with cardiology. The patient has history of active tobacco abuse and PAD involving mostly the left femoral artery where he had stenting done several years ago in [place]. He has no previous cardiac catheterizations or [...] He would likely benefit from statin therapy -[facility]Kelsey Jones DO Work Phone: Evaluation note Diagnosis Oropharnyx cancer (HCC)- Primary documented in this encounter [facility] note* 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 Malaise and fatigue Other malaise and fatigue [facility] Diagnosis Oropharnyx cancer (HCC)- Primary [facility] Diagnosis Oropharnyx cancer (HCC)- Primary [facility]* Diagnosis Physical deconditioning- Primary Debility, unspecified Current smoker Tobacco use disorder [facility] 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 [facility] 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 [facility] Diagnosis Oropharnyx cancer (HCC)- Primary [facility] Diagnosis Oropharnyx cancer (HCC)- [...] Tachycardia Tachycardia, unspecified [facility] Diagnosis Oropharnyx cancer (HCC)- Primary [facility] 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 [facility] 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 [facility] Diagnosis Oropharnyx cancer (HCC)- Primary [facility] Diagnosis Oropharnyx cancer (HCC)- [...] Tachycardia, unspecified [facility]* 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 [facility]* Diagnosis Oropharnyx cancer (HCC)- Primary [facility] 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 documented in [facility]* 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 [facility] 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 Severe protein-calorie malnutrition (HCC) Other severe protein-calorie malnutrition [facility]* Diagnosis Nausea- Primary Nausea alone Lower abdominal pain Abdominal pain, other specified site 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 [facility]* Diagnosis Lower abdominal pain- Primary Abdominal pain, other specified site 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 Nausea Nausea alone [facility]* Diagnosis Oropharnyx cancer (HCC)- Primary [facility] 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 [facility] Diagnosis Oropharnyx cancer (HCC)- Primary [facility] Diagnosis Oropharnyx cancer (HCC)- Primary Malaise and fatigue Other malaise and fatigue Severe protein-calorie malnutrition (HCC) Other severe protein-calorie malnutrition [facility]* Diagnosis Oropharnyx cancer (HCC)- Primary [facility] Diagnosis Oropharnyx cancer (HCC)- Primary [facility]* Diagnosis 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, face, and neck 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* 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 Cancer related pain Neoplasm related pain (acute) (chronic) Need for influenza vaccination Need for prophylactic vaccination and inoculation against influenza [facility] Diagnosis Oropharnyx cancer (HCC)- Primary [facility] 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 [facility] 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 [facility] Diagnosis Oropharnyx cancer (HCC)- Primary [facility] Diagnosis Oropharnyx cancer (HCC)- Primary Severe protein-calorie malnutrition (HCC) Other severe protein-calorie malnutrition Chronic obstructive pulmonary disease, unspecified COPD type (HCC) documented [facility]* Diagnosis PVD (peripheral vascular disease) (CMS/HCC)- Primary Unspecified peripheral vascular disease Abnormal EKG Nonspecific abnormal electrocardiogram (ECG) (EKG) TIA (transient ischemic attack) Unspecified transient cerebral ischemia Current smoker Hyperlipidemia, unspecified hyperlipidemia type Pulmonary emphysema, unspecified emphysema type (CMS/HCC) documented in this encounter [facility] Work Phone: Evaluation note* 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 Malaise and fatigue Other malaise and fatigue Chronic obstructive pulmonary disease, unspecified COPD type (HCC) Severe protein-calorie malnutrition (HCC) Other severe protein-calorie malnutrition Cancer related pain Neoplasm related pain (acute) (chronic) documented [facility]* Diagnosis 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, face, and neck History of radiation therapy Personal history of irradiation, presenting hazards to health documented in this encounter [facility] Work [facility]: Evaluation note* Diagnosis Oropharnyx cancer [...] hazards to health [facility]* Diagnosis Oropharnyx cancer (HCC)- [...] severe protein-calorie malnutrition documented in this encounter [facility] note* Diagnosis Oropharnyx cancer (HCC)- Primary [...] malaise and fatigue documented in this encounter [facility] note* Diagnosis Oropharnyx cancer (HCC)- Primary [...] 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 [facility] note* Diagnosis Oropharnyx cancer (HCC)- Primary [...] 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 [facility] note* Diagnosis Oropharnyx cancer (HCC)- Primary [...] 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 Diagnosis Malignant neoplasm of [...] Dysphagia, unspecified type [facility] Diagnosis Preop examination- Primary Unspecified pre-operative examination documented in this encounter [facility]* Diagnosis Essential hypertension (CMS/HCC)- Primary [...] right shoulder- Primary documented in this encounter [facility]* Diagnosis Essential hypertension (CMS/HCC)- Primary [...] right shoulder- Primary documented in this encounter [facility]* Diagnosis Essential hypertension (CMS/HCC)- Primary [...] right shoulder- Primary documented in this encounter [facility]* Diagnosis Essential hypertension (CMS/HCC)- [...] thoracolumbar intervertebral disc documented in this encounter [facility]* Diagnosis Essential hypertension (CMS/HCC)- Primary [...] tissues of limb documented in this encounter [facility]* Diagnosis PVD (peripheral vascular disease) (CMS-HCC) Unspecified peripheral vascular disease Hyperlipidemia, unspecified hyperlipidemia type TIA (transient ischemic attack) Unspecified transient cerebral ischemia BMI less than 19,adult Current smoker documented in this encounter [facility] Work Phone: Evaluation note* Diagnosis Internal derangement of right shoulder- Primary documented in this encounter [facility]* Diagnosis DDD (degenerative disc disease), thoracic Degeneration of thoracic or thoracolumbar intervertebral disc documented in this encounter [facility]* Diagnosis Essential hypertension (CMS/HCC)- Primary [...] thoracolumbar intervertebral disc documented in this encounter [facility] note* Diagnosis Essential hypertension (CMS/HCC)- Primary [...] thoracolumbar intervertebral disc documented in this encounter [facility]* Diagnosis Essential hypertension (CMS/HCC)- [...] COPD type (CMS/HCC) [facility] Diagnosis Oropharnyx cancer (HCC)- Primary Pharyngeal [...] Primary Generalized pain [facility]* Diagnosis Oropharnyx cancer (HCC)- [...] Tobacco use disorder [facility] Diagnosis Oropharnyx cancer (HCC)- [...] Pain Generalized pain [facility] Diagnosis Essential hypertension (CMS/HCC)- [...] thoracolumbar intervertebral disc documented in this encounter [facility]* Diagnosis Oropharnyx cancer (HCC)- Primary [...] face, and neck documented in this encounter [facility] for referral (narrative)* Diagnostic Procedure Only (Routine) - Authorized Specialty Diagnoses / Procedures Referred By Morris metzger Referred To Contact XR IMAGING Diagnoses Lower abdominal pain Procedures XR ABDOMEN 2V ROUTINE SUPINE W UPRIGHT/DECUB/CTL RADIOLOGIC EXAM ABDOMEN 2 VIEWS Anthony Weaver PA-C [address] [place] [address] [place] [address] Xr Imaging Referral ID Status Reason Start Date Expiration Date Visits Requested Visits Authorized [id number] Authorized Auto-Generat ed Referral 09/16/2021 10/16/2022 1 1 [facility] for referral (narrative)* Diagnostic Procedure Only (Routine) - Pending Review Specialty Diagnoses / Procedures Referred By Morris metzger Referred To Contact MOLECULAR & FUNCTIONAL IMAGING Diagnoses Oropharnyx cancer (HCC) Procedures NM PET/CT SKULL-THIGH SUBSEQUENT PET IMAGING CT ATTENUATION SKULL BASE MID-THIGH Kathrine Carpenter MD [address] [place] [address] [place] [address] Molecular & Functional Imaging [address] [place] [address] Referral ID Status Reason Start Date Expiration Date Visits Requested Visits Authorized [id number] Pending Review Auto-Generat ed Referral 12/22/2021 12/21/2022 1 1 T [facility] for referral (narrative)* Consultation (Routine) - Authorized Specialty Diagnoses / Procedures Referred By Contac t Referred To Contact Cardiology Diagnoses PVD (peripheral vascular disease) ([facility]/HCC) Procedures Follow Up In Cardiology Carmen Neely MD [address] [place] [address] 2, [address] [address] Carmen Neely MD [address] [place] [address] 2, [address] [place] [address] Referral ID Status Reason Start Date Expiration Date V isits Requested Visits Authorized [id number] Authorized 05/06/2023 05/05/2024 1 1 [facility] Work [facility] Diagnostic Procedure Only (Routine) - Pending Review Specialty Diagnoses / Procedures Referred By Contac t Referred To Contact MOLECULAR & FUNCTIONAL IMAGING Diagnoses Cancer of base of tongue (HCC) Malaise and fatigue Procedures NM PET/CT SKULL-THIGH SUBSEQUENT PET IMAGING CT ATTENUATION SKULL BASE MID-THIGH Esdras Cash MD [address] [place] [address] [place] [address] Molecular & Functional Imaging [address] [place] [address] Referral ID Status Reason Start Date Expiration Date Visits Requested Visits Authorized [id number] Pending Review Auto-Generat ed Referral 08/18/2023 09/16/2024 1 1 [facility] for referral (narrative)* Diagnostic Procedure Only (Routine) - Closed Specialty Diagnoses / Procedures Referred By Contac t Referred To Contact MOLECULAR & FUNCTIONAL IMAGING Diagnoses Cancer of base of tongue (HCC) Malaise and fatigue Procedures NM PET/CT SKULL-THIGH SUBSEQUENT PET IMAGING CT ATTENUATION SKULL BASE MID-THIGH Esdras Cash MD [address] [place] [address] [place] [address] Molecular & Functional Imaging [address] [place] [address] Referral ID Status Reason Start Date Expiration Date V isits Requested Visits Authorized [id number] Closed Auto-Generate d Referral 11/20/2023 01/19/2024 1 1 [facility] for referral (narrative)* Diagnostic Procedure Only (Routine) - Closed Specialty Diagnoses / Procedures Referred By Contac t Referred To Contact MOLECULAR & FUNCTIONAL IMAGING Diagnoses Cancer of base of tongue (HCC) Procedures NM PET/CT SKULL-THIGH SUBSEQUENT PET IMAGING CT ATTENUATION SKULL BASE MID-THIGH Esdras Cash MD [address] [place] [address] [place] [address] Molecular & Functional Imaging [address] [place] [address] Referral ID Status Reason Start Date Expiration Date V isits Requested Visits Authorized [id number] Closed Auto-Generate d Referral OON/Self Pay Override 02/11/2023 03/13/2023 1 1 T [facility] for referral (narrative)* Diagnostic Procedure Only (Routine) - Closed Specialty Diagnoses / Procedures Referred By Contac t Referred To Contact MOLECULAR & FUNCTIONAL IMAGING Diagnoses Oropharnyx cancer (HCC) Procedures NM PET/CT SKULL-THIGH SUBSEQUENT PET IMAGING CT ATTENUATION SKULL BASE MID-THIGH Kathrine Carpenter MD [address] [place] [address] [place] [address] Molecular & Functional Imaging [address] [place] [address] Referral ID Status Reason Start Date Expiration Date V isits Requested Visits Authorized [id number] Closed Auto-Generate d Referral 12/23/2021 01/22/2022 1 1 [facility] for referral (narrative)* Diagnostic Procedure Only (Routine) - Closed Specialty Diagnoses / Procedures Referred By Contac t Referred To Contact MOLECULAR & FUNCTIONAL IMAGING Diagnoses Malignant neoplasm of head, face and neck (HCC) Procedures NM PET/CT SKULL-THIGH SUBSEQUENT TUMOR IMAGING PET W/CONC CT SKULL-THIGH Kathrine Carpenter MD [address] [place] [address] [place] [address] Molecular & Functional Imaging [address] [place] [address] Referral ID Status Reason Start Date Expiration Date Visits Re quested Visits Authorized Closed 04/05/2021 05/05/2021 1 1 [facility] for referral (narrative)* Diagnostic Procedure Only (Routine) - Authorized Specialty Diagnoses / Procedures Referred By Contac t Referred To Contact XR IMAGING Diagnoses Pain Procedures XR SHOULDER GENERAL 3V OR MORE AP/TRUE AP/OTHER RIGHT RADEX SHOULDER COMPLETE MINIMUM 2 VIEWS Hebert Miguel MD [address] [place] [address] Xr Imaging [place] [address] Referral ID Status Reason Start Date Expiration Date Visits Requested Visits Authorized [id number] Authorized Auto-Generat ed Referral 06/07/2024 07/07/2025 1 1 [facility] for visit Narrative* Diagnostic Procedure Only (Routine) - Closed Specialty Diagnoses / Procedures Referred By Contac t Referred To Contact Radiation Oncology / RADIATION ONCOLOGY Diagnoses Malignant neoplasm of base of tongue SIM/KAI/Neck - IV Contrast Procedures SIMULATION KELSEY IMRT 30 fractions Kathrine Carpenter MD [address] [place] [address] [place] [address] Kathrine Carpenter MD [address] [place] [address] [place] [address] Referral ID Status Reason Start Date Expiration Date Visits Re quested Visits Authorized [id number] Closed 08/01/2021 10/30/2021 31 31 [facility] Summary Purpose Family History No Family History [...] FoundDocuments on File Type Date Recorded 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 Pt [facility] [address] [place] [address] [facility] [place] [address] [place] [address] Referral ID Status Reason Start Date Expiration Date Visits Requested Visits Authorized [id number] Pending Review PCP Requested Referral Auto-Generate d Referral 08/09/2021 11/07/2021 1 1 Specialty Diagnoses / Procedures Referred By Contac t Referred To Contact CT IMAGING Diagnoses Oropharnyx cancer (HCC) Procedures CT CHEST W IVCON DIAGNOSTIC COMPUTED TOMOGRAPHY THORAX W/CONTRAST Kathrine Carpenter MD [address] [facility] [place] [address] Ct Imaging Referral ID Status Reason Start Date Expiration Date Visits Requested Visits Authorized [id number] Pending Review Auto-Generat ed Referral 2 03/27/2023 1 1 Specialty Diagnoses / Procedures Referred By Contac t Referred To Contact CT IMAGING Diagnoses Oropharnyx cancer (HCC) Procedures CT NECK SOFT TISSUE W IVCON CT SOFT TISSUE NECK W/CONTRAST MATERIAL Kathrine Carpenter MD [address] [place], [place] [address] [place] [address] Ct Imaging Referral ID Status Reason Start Date Expiration Date Visits Requested Visits Authorized [id number] Pending Review Auto-Generat ed Referral 2 03/27/2023 1 1 Specialty Diagnoses / Procedures Referred By Contac t Referred To Contact CT IMAGING Diagnoses Oropharnyx cancer (HCC) Procedures CT CHEST W IVCON DIAGNOSTIC COMPUTED TOMOGRAPHY THORAX W/CONTRAST Kathrine Carpenter MD [address] [facility] [place] [address] [place] [address] Referral ID Status Reason Start Date Expiration Date V isits Requested Visits Authorized [id number] Closed Auto-Generate d Referral 07/16/2022 08/15/2023 1 1 Specialty Diagnoses / Procedures Referred By Contac t Referred To Contact CT IMAGING Diagnoses Oropharnyx cancer (HCC) Procedures CT NECK SOFT TISSUE WO IVCON CT SOFT TISSUE NECK W/O CONTRAST MATERIAL Kathrine Carpenter MD [address] [facility] [place] [address] [place] [address] Referral ID Status Reason Start Date Expiration Date V isits Requested Visits Authorized [id number] Closed Auto-Generate d Referral 07/16/2022 08/15/2023 1 1 Referral ID Status Reason Start Date Expiration Date V isits Requested Visits Authorized [id number] Closed Auto-Generate d Referral 04/14/2022 05/14/2022 1 1 Specialty Diagnoses / Procedures Referred By Contac t Referred To Contact CT IMAGING Diagnoses Oropharnyx cancer (HCC) Procedures CT NECK SOFT TISSUE W IVCON CT SOFT TISSUE NECK W/CONTRAST MATERIAL Kathrine Carpenter MD [address] [address] [address] [place] [address] Referral ID Status Reason Start Date Expiration Date V isits Requested Visits Authorized [id number] Closed Auto-Generate d Referral 04/14/2022 05/14/2022 1 1 Specialty Diagnoses / Procedures Referred By Contac t Referred To Contact Diagnoses PVD (peripheral vascular disease) (CMS-HCC) Procedures ECG 12 Lead Carmen Neely MD [address] [facility] [address], [address] [address] Referral ID Status Reason Start Date Expiration Date V isits Requested Visits Authorized [id number] Authorized 11/17/2023 11/16/2024 1 1 Specialty Diagnoses / Procedures Referred By Contac t Referred To Contact Cardiology Diagnoses PVD (peripheral vascular disease) (CMS-HCC) Procedures Follow Up In Cardiology Carmen Neely MD [address] [facility] 2, [address] [place] [address] Carmen Neely MD [address] [facility], [address] [place] [address] Referral ID Status Reason Start Date Expiration Date V isits Requested Visits Authorized [id number] Authorized 11/17/2023 11/16/2024 1 1 Medications Administered [...] had PVR study several months ago at [facility] which I requested. His cardiac and pulmonary [...] section and content) DATE CREATED AUTHOR 10/27/2017 [facility] DATE CREATED AUTHOR AUTHOR'S ORGANIZ ATION 04/10/2018 [facility] DATE CREATED AUTHOR AUTHOR'S ORGANIZ ATION 04/11/2018 [facility] DATE CREATED AUTHOR AUTHOR'S ORGANIZ ATION 04/17/2018 [facility] DATE CREATED AUTHOR AUTHOR'S ORGANIZ ATION 06/21/2021 [facility] DATE CREATED AUTHOR AUTHOR'S ORGANIZ ATION 06/25/2021 [facility] DATE CREATED AUTHOR AUTHOR'S ORGANIZ ATION 10/17/2021 [facility] DATE CREATED AUTHOR AUTHOR'S ORGANIZ ATION 01/29/2022 [facility] DATE CREATED AUTHOR AUTHOR'S ORGANIZ ATION 06/11/2022 [facility] DATE CREATED AUTHOR AUTHOR'S ORGANIZ ATION 06/11/2022 [facility] DATE CREATED AUTHOR AUTHOR'S ORGANIZ ATION 10/10/2022 [facility] DATE CREATED AUTHOR AUTHOR'S ORGANIZ ATION 10/22/2023 [facility] DATE CREATED AUTHOR AUTHOR'S ORGANIZ ATION 11/03/2023 [facility] DATE CREATED AUTHOR AUTHOR'S ORGANIZ ATION 11/21/2023 [facility] DATE CREATED AUTHOR AUTHOR'S ORGANIZ ATION 02/09/2024 [facility] DATE CREATED AUTHOR AUTHOR'S ORGANIZ ATION 06/03/2024 [facility] DATE CREATED AUTHOR AUTHOR'S ORGANIZ ATION 07/01/2024 [facility] Source Comments (unrecognize d section and content) In the event this informatio n is protected by the Federal Confidentiality of Alcohol and Drug Abuse Patient Records regulations: The Federal rules restrict any use of the information to criminally investigate or prosecute any alcohol or drug abuse patient.[facility] the event this information is protected by the Federal Confidentiality of Alcohol and Drug Abuse Patient Records regulations: The Federal rules restrict any use of the information to criminally investigate or prosecute any alcohol or drug abuse patient.[facility] Center[facility] the event this information is protected by the Federal Confidentiality of Alcohol and Drug Abuse Patient Records regulations: The Federal rules restrict any use of the information to criminally investigate or prosecute any alcohol or drug abuse patient.[facility] Center[facility] the event this information is protected by the Federal Confidentiality of Alcohol and Drug Abuse Patient Records regulations: The Federal rules restrict any use of the information to criminally investigate or prosecute any alcohol or drug abuse patient.[facility] CenterIn the event this information is protected by the Federal Confidentiality of Alcohol and Drug Abuse Patient Records regulations: The Federal rules restrict any use of the information to criminally investigate or prosecute any alcohol or drug abuse patient.[facility] CenterIn the event this information is protected by the Federal Confidentiality of Alcohol and Drug Abuse Patient Records regulations: The Federal rules restrict any use of the information to criminally investigate or prosecute any alcohol or drug abuse patient.[facility] CenterIn the event this information is protected by the Federal Confidentiality of Alcohol and Drug Abuse Patient Records regulations: The Federal rules restrict any use of the information to criminally investigate or prosecute any alcohol or drug abuse patient.[facility] CenterIn the event this information is protected by the Federal Confidentiality of Alcohol and Drug Abuse Patient Records regulations: The Federal rules restrict any use of the information to criminally investigate or prosecute any alcohol or drug abuse patient.[facility] CenterIn the event this information is protected by the Federal Confidentiality of Alcohol and Drug Abuse Patient Records regulations: The Federal rules restrict any use of the information to criminally investigate or prosecute any alcohol or drug abuse patient.[facility] CenterIn the event this information is protected by the Federal Confidentiality of Alcohol and Drug Abuse Patient Records regulations: The Federal rules restrict any use of the information to criminally investigate or prosecute any alcohol or drug abuse patient.[facility] CenterIn the event this information is protected by the Federal Confidentiality of Alcohol and Drug Abuse Patient Records regulations: The Federal rules restrict any use of the information to criminally investigate or prosecute any alcohol or drug abuse patient.[facility] CenterIn the event this information is protected by the Federal Confidentiality of Alcohol and Drug Abuse Patient Records regulations: The Federal rules restrict any use of the information to criminally investigate or prosecute any alcohol or drug abuse patient.[facility] CenterIn the event this information is protected by the Federal Confidentiality of Alcohol and Drug Abuse Patient Records regulations: The Federal rules restrict any use of the information to criminally investigate or prosecute any alcohol or drug abuse patient.[facility] CenterIn the event this information is protected by the Federal Confidentiality of Alcohol and Drug Abuse Patient Records regulations: The Federal rules restrict any use of the information to criminally investigate or prosecute any alcohol or drug abuse patient.[facility] CenterIn the event this information is protected by the Federal Confidentiality of Alcohol and Drug Abuse Patient Records regulations: The Federal rules restrict any use of the information to criminally investigate or prosecute any alcohol or drug abuse patient.[facility] CenterIn the event this information is protected by the Federal Confidentiality of Alcohol and Drug Abuse Patient Records regulations: The Federal rules restrict any use of the information to criminally investigate or prosecute any alcohol or drug abuse patient.[facility] CenterIn the event this information is protected by the Federal Confidentiality of Alcohol and Drug Abuse Patient Records regulations: The Federal rules restrict any use of the information to criminally investigate or prosecute any alcohol or drug abuse patient.[facility] CenterIn the event this information is protected by the Federal Confidentiality of Alcohol and Drug Abuse Patient Records regulations: The Federal rules restrict any use of the information to criminally investigate or prosecute any alcohol or drug abuse patient.[facility] CenterIn the event this information is protected by the Federal Confidentiality of Alcohol and Drug Abuse Patient Records regulations: The Federal rules restrict any use of the information to criminally investigate or prosecute any alcohol or drug abuse patient.[facility] CenterIn the event this information is protected by the Federal Confidentiality of Alcohol and Drug Abuse Patient Records regulations: The Federal rules restrict any use of the information to criminally investigate or prosecute any alcohol or drug abuse patient.[facility] CenterIn the event this information is protected by the Federal Confidentiality of Alcohol and Drug Abuse Patient Records regulations: The Federal rules restrict any use of the information to criminally investigate or prosecute any alcohol or drug abuse patient.[facility] CenterIn the event this information is protected by the Federal Confidentiality of Alcohol and Drug Abuse Patient Records regulations: The Federal rules restrict any use of the information to criminally investigate or prosecute any alcohol or drug abuse patient.[facility] CenterIn the event this information is protected by the Federal Confidentiality of Alcohol and Drug Abuse Patient Records regulations: The Federal rules restrict any use of the information to criminally investigate or prosecute any alcohol or drug abuse patient.[facility] CenterIn the event this information is protected by the Federal Confidentiality of Alcohol and Drug Abuse Patient Records regulations: The Federal rules restrict any use of the information to criminally investigate or prosecute any alcohol or drug abuse patient.[facility] CenterIn the event this information is protected by the Federal Confidentiality of Alcohol and Drug Abuse Patient Records regulations: The Federal rules restrict any use of the information to criminally investigate or prosecute any alcohol or drug abuse patient.[facility] CenterIn the event this information is protected by the Federal Confidentiality of Alcohol and Drug Abuse Patient Records regulations: The Federal rules restrict any use of the information to criminally investigate or prosecute any alcohol or drug abuse patient.[facility] CenterIn the event this information is protected by the Federal Confidentiality of Alcohol and Drug Abuse Patient Records regulations: The Federal rules restrict any use of the information to criminally investigate or prosecute any alcohol or drug abuse patient.[facility] CenterIn the event this information is protected by the Federal Confidentiality of Alcohol and Drug Abuse Patient Records regulations: The Federal rules restrict any use of the information to criminally investigate or prosecute any alcohol or drug abuse patient.[facility] CenterIn the event this information is protected by the Federal Confidentiality of Alcohol and Drug Abuse Patient Records regulations: The Federal rules restrict any use of the information to criminally investigate or prosecute any alcohol or drug abuse patient.[facility] CenterIn the event this information is protected by the Federal Confidentiality of Alcohol and Drug Abuse Patient Records regulations: The Federal rules restrict any use of the information to criminally investigate or prosecute any alcohol or drug abuse patient.[facility] CenterIn the event this information is protected by the Federal Confidentiality of Alcohol and Drug Abuse Patient Records regulations: The Federal rules restrict any use of the information to criminally investigate or prosecute any alcohol or drug abuse patient.[facility] CenterIn the event this information is protected by the Federal Confidentiality of Alcohol and Drug Abuse Patient Records regulations: The Federal rules restrict any use of the information to criminally investigate or prosecute any alcohol or drug abuse patient.[facility] CenterIn the event this information is protected by the Federal Confidentiality of Alcohol and Drug Abuse Patient Records regulations: The Federal rules restrict any use of the information to criminally investigate or prosecute any alcohol or drug abuse patient.[facility] CenterIn the event this information is protected by the Federal Confidentiality of Alcohol and Drug Abuse Patient Records regulations: The Federal rules restrict any use of the information to criminally investigate or prosecute any alcohol or drug abuse patient.[facility] CenterIn the event this information is protected by the Federal Confidentiality of Alcohol and Drug Abuse Patient Records regulations: The Federal rules restrict any use of the information to criminally investigate or prosecute any alcohol or drug abuse patient.[facility] CenterIn the event this information is protected by the Federal Confidentiality of Alcohol and Drug Abuse Patient Records regulations: The Federal rules restrict any use of the information to criminally investigate or prosecute any alcohol or drug abuse patient.[facility] CenterIn the event this information is protected by the Federal Confidentiality of Alcohol and Drug Abuse Patient Records regulations: The Federal rules restrict any use of the information to criminally investigate or prosecute any alcohol or drug abuse patient.[facility] CenterIn the event this information is protected by the Federal Confidentiality of Alcohol and Drug Abuse Patient Records regulations: The Federal rules restrict any use of the information to criminally investigate or prosecute any alcohol or drug abuse patient.[facility] CenterIn the event this information is protected by the Federal Confidentiality of Alcohol and Drug Abuse Patient Records regulations: The Federal rules restrict any use of the information to criminally investigate or prosecute any alcohol or drug abuse patient.[facility] CenterIn the event this information is protected by the Federal Confidentiality of Alcohol and Drug Abuse Patient Records regulations: The Federal rules restrict any use of the information to criminally investigate or prosecute any alcohol or drug abuse patient.[facility] CenterIn the event this information is protected by the Federal Confidentiality of Alcohol and Drug Abuse Patient Records regulations: The Federal rules restrict any use of the information to criminally investigate or prosecute any alcohol or drug abuse patient.[facility] CenterIn the event this information is protected by the Federal Confidentiality of Alcohol and Drug Abuse Patient Records regulations: The Federal rules restrict any use of the information to criminally investigate or prosecute any alcohol or drug abuse patient.[facility] CenterIn the event this information is protected by the Federal Confidentiality of Alcohol and Drug Abuse Patient Records regulations: The Federal rules restrict any use of the information to criminally investigate or prosecute any alcohol or drug abuse patient.[facility] CenterIn the event this information is protected by the Federal Confidentiality of Alcohol and Drug Abuse Patient Records regulations: The Federal rules restrict any use of the information to criminally investigate or prosecute any alcohol or drug abuse patient.[facility] CenterIn the event this information is protected by the Federal Confidentiality of Alcohol and Drug Abuse Patient Records regulations: The Federal rules restrict any use of the information to criminally investigate or prosecute any alcohol or drug abuse patient.[facility] CenterIn the event this information is protected by the Federal Confidentiality of Alcohol and Drug Abuse Patient Records regulations: The Federal rules restrict any use of the information to criminally investigate or prosecute any alcohol or drug abuse patient.[facility] CenterIn the event this information is protected by the Federal Confidentiality of Alcohol and Drug Abuse Patient Records regulations: The Federal rules restrict any use of the information to criminally investigate or prosecute any alcohol or drug abuse patient.[facility] CenterIn the event this information is protected by the Federal Confidentiality of Alcohol and Drug Abuse Patient Records regulations: The Federal rules restrict any use of the information to criminally investigate or prosecute any alcohol or drug abuse patient.[facility] CenterIn the event this information is protected by the Federal Confidentiality of Alcohol and Drug Abuse Patient Records regulations: The Federal rules restrict any use of the information to criminally investigate or prosecute any alcohol or drug abuse patient.[facility] CenterIn the event this information is protected by the Federal Confidentiality of Alcohol and Drug Abuse Patient Records regulations: The Federal rules restrict any use of the information to criminally investigate or prosecute any alcohol or drug abuse patient.[facility] CenterIn the event this information is protected by the Federal Confidentiality of Alcohol and Drug Abuse Patient Records regulations: The Federal rules restrict any use of the information to criminally investigate or prosecute any alcohol or drug abuse patient.[facility] CenterIn the event this information is protected by the Federal Confidentiality of Alcohol and Drug Abuse Patient Records regulations: The Federal rules restrict any use of the information to criminally investigate or prosecute any alcohol or drug abuse patient.[facility] CenterIn the event this information is protected by the Federal Confidentiality of Alcohol and Drug Abuse Patient Records regulations: The Federal rules restrict any use of the information to criminally investigate or prosecute any alcohol or drug abuse patient.[facility] CenterIn the event this information is protected by the Federal Confidentiality of Alcohol and Drug Abuse Patient Records regulations: The Federal rules restrict any use of the information to criminally investigate or prosecute any alcohol or drug abuse patient.[facility] CenterIn the event this information is protected by the Federal Confidentiality of Alcohol and Drug Abuse Patient Records regulations: The Federal rules restrict any use of the information to criminally investigate or prosecute any alcohol or drug abuse patient.[facility] CenterIn the event this information is protected by the Federal Confidentiality of Alcohol and Drug Abuse Patient Records regulations: The Federal rules restrict any use of the information to criminally investigate or prosecute any alcohol or drug abuse patient.[facility] CenterIn the event this information is protected by the Federal Confidentiality of Alcohol and Drug Abuse Patient Records regulations: The Federal rules restrict any use of the information to criminally investigate or prosecute any alcohol or drug abuse patient.[facility] CenterIn the event this information is protected by the Federal Confidentiality of Alcohol and Drug Abuse Patient Records regulations: The Federal rules restrict any use of the information to criminally investigate or prosecute any alcohol or drug abuse patient.[facility] CenterIn the event this information is protected by the Federal Confidentiality of Alcohol and Drug Abuse Patient Records regulations: The Federal rules restrict any use of the information to criminally investigate or prosecute any alcohol or drug abuse patient.[facility] CenterIn the event this information is protected by the Federal Confidentiality of Alcohol and Drug Abuse Patient Records regulations: The Federal rules restrict any use of the information to criminally investigate or prosecute any alcohol or drug abuse patient.[facility] CenterIn the event this information is protected by the Federal Confidentiality of Alcohol and Drug Abuse Patient Records regulations: The Federal rules restrict any use of the information to criminally investigate or prosecute any alcohol or drug abuse patient.[facility] CenterIn the event this information is protected by the Federal Confidentiality of Alcohol and Drug Abuse Patient Records regulations: The Federal rules restrict any use of the information to criminally investigate or prosecute any alcohol or drug abuse patient.[facility] CenterIn the event this information is protected by the Federal Confidentiality of Alcohol and Drug Abuse Patient Records regulations: The Federal rules restrict any use of the information to criminally investigate or prosecute any alcohol or drug abuse patient.[facility] CenterIn the event this information is protected by the Federal Confidentiality of Alcohol and Drug Abuse Patient Records regulations: The Federal rules restrict any use of the information to criminally investigate or prosecute any alcohol or drug abuse patient.[facility] CenterIn the event this information is protected by the Federal Confidentiality of Alcohol and Drug Abuse Patient Records regulations: The Federal rules restrict any use of the information to criminally investigate or prosecute any alcohol or drug abuse patient.[facility] CenterIn the event this information is protected by the Federal Confidentiality of Alcohol and Drug Abuse Patient Records regulations: The Federal rules restrict any use of the information to criminally investigate or prosecute any alcohol or drug abuse patient.[facility] CenterIn the event this information is protected by the Federal Confidentiality of Alcohol and Drug Abuse Patient Records regulations: The Federal rules restrict any use of the information to criminally investigate or prosecute any alcohol or drug abuse patient.[facility] CenterIn the event this information is protected by the Federal Confidentiality of Alcohol and Drug Abuse Patient Records regulations: The Federal rules restrict any use of the information to criminally investigate or prosecute any alcohol or drug abuse patient.[facility] CenterIn the event this information is protected by the Federal Confidentiality of Alcohol and Drug Abuse Patient Records regulations: The Federal rules restrict any use of the information to criminally investigate or prosecute any alcohol or drug abuse patient.[facility] CenterIn the event this information is protected by the Federal Confidentiality of Alcohol and Drug Abuse Patient Records regulations: The Federal rules restrict any use of the information to criminally investigate or prosecute any alcohol or drug abuse patient.[facility] CenterIn the event this information is protected by the Federal Confidentiality of Alcohol and Drug Abuse Patient Records regulations: The Federal rules restrict any use of the information to criminally investigate or prosecute any alcohol or drug abuse patient.[facility] CenterIn the event this information is protected by the Federal Confidentiality of Alcohol and Drug Abuse Patient Records regulations: The Federal rules restrict any use of the information to criminally investigate or prosecute any alcohol or drug abuse patient.[facility] Reason for Visit (unrecogniz ed section and [...] COMPLEX 45 MINS Darien Olivarez MD [id number] [facility] [place] [address] Referral ID Status Reason Start Date Expiration Date V isits Requested Visits Authorized [id number] Closed Auto-Generate d Referral 05/04/2021 05/03/2022 1 1 Reason Comments Care Coordination Education Material Reason Comments Radiotherapy On-treatment Visit Specialty Diagnoses / Procedures Referred By Contac Referred To Contact Diagnoses Cancer of base of tongue (HCC) Procedures CARBOPLATIN INJECTION Esdras Cash MD [address] [place] [address] [place] [address] Yvan Treat Kelsey [facility] [place] [address] Referral ID Status Reason Start Date Expiration Date V isits Requested Visits Authorized [id number] Pending Review 08/05/2021 09/30/2021 8 8 Reason Comments Care Coordination [id number] Post Treatment Call Reason Comments tongue cancer Reason Comments Nutrition Counseling Referral ID Status Reason Start Date Expiration Date V isits Requested Visits Authorized [id number] Authorized 08/05/2021 09/30/2021 8 8 Reason Comments oropharnyx cancer Reason Comments Cancer of base of tongue OTV Reason Comments Patient Update neuropathy Reason Comments Social Work Services Gas card program Referral ID Status Reason Start Date Expiration Date V isits Requested Visits Authorized [id number] Authorized 08/05/2021 10/31/2021 8 8 Reason Comments [...] ATTENUATION SKULL BASE MID-THIGH Esdras Cash MD [address] [place] [address] [place] [address] Molecular & Functional Imaging [address] [place] [address] Referral ID Status Reason Start Date Expiration Date V isits Requested Visits Authorized [id number] Closed Auto-Generate d Referral 11/20/2023 01/19/2024 1 1 Specialty Diagnoses / Procedures Referred By Contac t Referred To Contact MOLECULAR & FUNCTIONAL IMAGING Diagnoses Cancer of base of tongue (HCC) Procedures NM PET/CT SKULL-THIGH SUBSEQUENT PET IMAGING CT ATTENUATION SKULL BASE MID-THIGH Esdras Cash MD [address] [place] [address] [place] [address] Molecular & Functional Imaging [address] [place] [address] Referral ID Status Reason Start Date Expiration Date V isits Requested Visits Authorized [id number] Closed Auto-Generate d Referral OON/Self Pay Override 02/11/2023 03/13/2023 [address] Specialty Diagnoses / Procedures Referred By Contac t Referred To Contact CT IMAGING Diagnoses Oropharnyx cancer (HCC) Procedures CT CHEST W IVCON DIAGNOSTIC COMPUTED TOMOGRAPHY THORAX W/CONTRAST Kathrine Carpenter MD [address] [place] [address] [place] [address] Ct [facility] [place] [address] Referral ID Status Reason Start Date Expiration Date V isits Requested Visits Authorized [id number] Closed Auto-Generate d Referral 07/16/2022 08/15/2023 1 1 Referral ID Status Reason Start Date Expiration Date V isits Requested Visits Authorized [id number] Closed Auto-Generate d Referral 04/14/2022 05/14/2022 1 [address] Specialty Diagnoses / Procedures Referred By Contac t Referred To Contact MOLECULAR & FUNCTIONAL IMAGING Diagnoses Oropharnyx cancer (HCC) Procedures NM PET/CT SKULL-THIGH SUBSEQUENT PET IMAGING CT ATTENUATION SKULL BASE MID-THIGH Kathrine Carpenter MD [address] [place] [address] [place] [address] Molecular & Functional Imaging [address] [place] [address] Referral ID Status Reason Start Date Expiration Date V isits Requested Visits Authorized [id number] Closed Auto-Generate d Referral 12/23/2021 01/22/2022 1 1 Specialty Diagnoses / Procedures Referred By Contac t Referred To Contact MOLECULAR & FUNCTIONAL IMAGING Diagnoses Malignant neoplasm of head, face and neck (HCC) Procedures NM PET/CT SKULL-THIGH SUBSEQUENT TUMOR IMAGING PET W/CONC CT SKULL-THIGH Kathrine Carpenter MD [address] [place] [address] JUAN J[place]É [place] [address] Molecular & Functional Imaging [address] [place] [address] Referral ID Status Reason Start Date Expiration Date Visits Re quested Visits Authorized [id number] Closed 04/05/2021 05/05/2021 1 1 Reason Comments [...] Contact Cardiology Diagnoses PVD (peripheral vascular disease) ([facility]) Procedures Follow Up In Cardiology Carmen Neely MD [address] [facility] [address], [address] [address] Carmen Neely MD [address] [facility] 2, [facility] [address] [place] [address] Referral ID Status Reason Start Date Expiration Date V isits Requested Visits Authorized [id number] Authorized 05/06/2023 05/05/2024 1 1 Reason Onset [...] COMPLETE MINIMUM 2 VIEWS Hebert Miguel MD [address] [place] [address] Phone: tel: fax: [place] [address] Referral ID Status Reason Start Date Expiration Date V isits Requested Visits Authorized [id number] Closed Auto-Generate d Referral 06/07/2024 07/07/2025 1 1 Reason Onset Date Comments Med Refill 06/24/2024 Care Teams (unrecognized sec tion and content) 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 Relationship Specialty Start Date End Date Gildardo Lacy [address] [place] [address] PCP - General Family Practice 07/16/20 Esdras Cash MD [address] [facility] [address] Physician Hematology/Oncology 08/07/20 Nathaly Biggs, SYSTEM ADMINISTRATION MANAGER.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 [address] [facility] [place] [address] Nurse Practitioner Hematology/Oncology 08/07/20 Cynthia Cutler, RN [address] [facility] [place] [address] Specialty Car Park Attendant Hematology/Oncology 08/07/20 Kathrine Carpenter MD [address] [facility] [place] [address] Physician Radiation Oncology 08/07/20 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 Relationship Specialty Start Date End Date Gildardo Lacy [address] [place] [address] PCP - General Family Practice 07/16/20 Esdras Cash MD [address] [facility] [place] [address] Physician Hematology/Oncology 08/07/20 Nathaly Biggs, SYSTEM ADMINISTRATION MANAGER.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 [address] [facility] [place] [address] Nurse Practitioner Hematology/Oncology 08/07/20 Cynthia Cutler, SCOTT [address] [facility] [place] [address] Specialty Car Park Attendant Hematology/Oncology 08/07/20 Kathrine Carpenter MD [address] [facility] [place] [address] Physician Radiation Oncology 08/07/20 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 Relationship Specialty Start Date End Date Gildardo Lacy [address] [place] [address] PCP - General Family Practice 07/16/20 Esdras Cash MD [address] [facility] [address] [place], [place] [address] Physician Hematology/Oncology 08/07/20 Nathaly Biggs, SYSTEM ADMINISTRATION MANAGER.[facility] [address] [facility] [address] [place], [place] [address]70 Nurse Practitioner Hematology/Oncology 08/07/20 Cynthia Cutler, RN [address] [facility] [place] [address] Specialty Car Park Attendant Hematology/Oncology 08/07/20 Kathrine Carpenter MD [address] [facility] [place] [address] Physician Radiation Oncology 08/07/20 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 Relationship Specialty Start Date End Date [place] [address] PCP - General Family Practice 07/16/20 Esdras Cash MD [address] [facility] [place] [address] Physician Hematology/Oncology 08/07/20 Nathaly Biggs, SYSTEM ADMINISTRATION MANAGER.[facility] [address] [facility] [address] [place], [place] [address] Nurse Practitioner Hematology/Oncology 08/07/20 Cynthia Cutler, SCOTT [address] [facility] [place] [address] Specialty Car Park Attendant Hematology/Oncology 08/07/20 Kathrine Carpenter MD [address] [facility] [place] [address] Physician Radiation Oncology 08/07/20 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 Relationship Specialty Start Date End Date Gildardo Lacy Carrie [address] [place] [address] PCP - General Family Practice 07/16/20 Esdras Cash MD [address] [facility] [place] [address] Physician Hematology/Oncology 08/07/20 Nathaly Biggs, SYSTEM ADMINISTRATION MANAGER.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 [address] [facility] [place] [address] Nurse Practitioner Hematology/Oncology 08/07/20 Cynthia Cutler, SCOTT [address] [facility] [place] [address] Specialty Car Park Attendant Hematology/Oncology 08/07/20 Kathrine Carpenter MD [address] [facility] [place] [address] Physician Radiation Oncology 08/07/20 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 Relationship Specialty Start Date End Date Reggie Gildardo Butler [address] [place] [address] PCP - General Family Practice 07/16/20 Esdras Cash MD [address] [facility] [place] [address] Physician Hematology/Oncology 08/07/20 Nathaly Biggs, SYSTEM ADMINISTRATION MANAGER.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 [address] [facility] [place] [address] Nurse Practitioner Hematology/Oncology 08/07/20 Cynthia Cutler, RN [address] [facility] [place] [address] Specialty Car Park Attendant Hematology/Oncology 08/07/20 Kathrine Carpenter MD [address] [facility] [place] [address] Physician Radiation Oncology 08/07/20 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 Relationship Specialty Start Date End Date Gildardo Lacy [address] [place] [address] PCP - General Family Practice 07/16/20 Esdras Cash MD [address] [facility] [place] [address] Physician Hematology/Oncology 08/07/20 Nathaly Biggs, SYSTEM ADMINISTRATION MANAGER.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 [address] [facility] [place] [address] Nurse Practitioner Hematology/Oncology 08/07/20 Cynthia Cutler, SCOTT [address] [facility] [place] [address] Specialty Car Park Attendant Hematology/Oncology 08/07/20 Kathrine Carpenter MD [address] [facility] [place] [address] Physician Radiation Oncology 08/07/20 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 Relationship Specialty Start Date End Date Gildardo Lacy [address] [place] [address] PCP - General Family Practice 07/16/20 Esdras Cash MD [address] [facility] [place] [address] Physician Hematology/Oncology 08/07/20 Nathaly Biggs, SYSTEM ADMINISTRATION MANAGER.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 [address] [facility] [place] [address] Nurse Practitioner Hematology/Oncology 08/07/20 Cynthia Cutler, SCOTT [address] [facility] [place] [address] Specialty Car Park Attendant Hematology/Oncology 08/07/20 Kathrine Carpenter MD [address] [facility] [place] [address] Physician Radiation Oncology 08/07/20 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 Relationship Specialty Start Date End Date KalpanaGildardo stone [address] [place] [address] PCP - General Family Practice 07/16/20 Esdras Cash MD [address] [facility] [place] [address] Physician Hematology/Oncology 08/07/20 Nathaly Biggs, SYSTEM ADMINISTRATION MANAGER.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 [address] [facility] [place] [address] Nurse Practitioner Hematology/Oncology 08/07/20 Cynthia Cutler, SCOTT [address] [facility] [place] [address] Specialty Car Park Attendant Hematology/Oncology 08/07/20 Kathrine Carpenter MD [address] [facility] [place] [address] Physician Radiation Oncology 08/07/20 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 Relationship Specialty Start Date End Date Gildardo Lacy [address] [place] [address] PCP - General Family Practice 07/16/20 Esdras Cash MD [address] [facility] [place] [address] Physician Hematology/Oncology 08/07/20 Nathaly Biggs, SYSTEM ADMINISTRATION MANAGER.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 [address] [facility] [place] [address] Nurse Practitioner Hematology/Oncology 08/07/20 Cynthia Cutler, SCOTT [address] [facility] [place] [address] Specialty Car Park Attendant Hematology/Oncology 08/07/20 Kathrine Carpenter MD [address] [facility] [place] [address] Physician Radiation Oncology 08/07/20 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 Relationship Specialty Start Date End Date Gildardo Lacy [address] [facility] [place] [address] PCP - General Family Practice 07/16/20 Esdras Cash MD [address] [facility] [place] [address] Physician Hematology/Oncology 08/07/20 Nathaly Biggs, SYSTEM ADMINISTRATION MANAGER.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 [address] [facility] [place] [address] Nurse Practitioner Hematology/Oncology 08/07/20 Cynthia Cutler, SCOTT [address] [facility] [place] [address] Specialty Car Park Attendant Hematology/Oncology 08/07/20 Kathrine Carpenter MD [address] [facility] [place] [address] Physician Radiation Oncology 08/07/20 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 Relationship Specialty Start Date End Date Gildardo Lacy [address] [place] [address] PCP - General Family Practice 07/16/20 Esdras Cash MD [address] [facility] [place] [address] Physician Hematology/Oncology 08/07/20 Nathaly Biggs, SYSTEM ADMINISTRATION MANAGER.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 [address] [facility] [place] [address] Nurse Practitioner Hematology/Oncology 08/07/20 Cynthia Cutler, SCOTT [address] [facility] [place] [address] Specialty Car Park Attendant Hematology/Oncology 08/07/20 Kathrien Carpenter MD [address] [facility] [place] [address] Physician Radiation Oncology 08/07/20 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 Relationship Specialty Start Date End Date Gildardo Lacy [address] [facility] [place] [address] PCP - General Family Practice 07/16/20 Esdras Cash MD [address] [facility] [place] [address] Physician Hematology/Oncology 08/07/20 Nathaly Biggs, SYSTEM ADMINISTRATION MANAGER.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 [address] [facility] [place] [address] Nurse Practitioner Hematology/Oncology 08/07/20 Cynthia Cutler, SCOTT [address] [facility] [place] [address] Specialty Car Park Attendant Hematology/Oncology 08/07/20 Kathrine Carpenter MD [address] [facility] [place] [address] Physician Radiation Oncology 08/07/20 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 Relationship Specialty Start Date End Date Gildardo Lacy [address] [place] [address] PCP - General Family Practice 07/16/20 Esdras Cash MD [address] [facility] [place] [address] Physician Hematology/Oncology 08/07/20 Nathaly Biggs, SYSTEM ADMINISTRATION MANAGER.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 [address] [facility] [place] [address] Nurse Practitioner Hematology/Oncology 08/07/20 Cynthia Cutler, SCOTT [address] [facility] [place] [address] Specialty Car Park Attendant Hematology/Oncology 08/07/20 Kathrine Carpenter MD [address] [facility] [place] [address] Physician Radiation Oncology 08/07/20 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 Relationship Specialty Start Date End Date Gildardo Lacy [address] [place] [address] PCP - General Family Practice 07/16/20 Esdras Cash MD [address] [facility] [place] [address] Physician Hematology/Oncology 08/07/20 Nathaly Biggs, SYSTEM ADMINISTRATION MANAGER.[facility] [address] [facility] [place] [address] Nurse Practitioner Hematology/Oncology 08/07/20 Cynthia Cutler, SCOTT [address] [facility] [place] [address] Specialty Car Park Attendant Hematology/Oncology 08/07/20 Kathrine Carpenter MD [address] [facility] [place] [address] Physician Radiation Oncology 08/07/20 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 Relationship Specialty Start Date End Date Gildardo Lacy [address] [place] [address] PCP - General Family Practice 07/16/20 Esdras Cash MD [address] [facility] [place] [address] Physician Hematology/Oncology 08/07/20 Nathaly Biggs, SYSTEM ADMINISTRATION MANAGER.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 [address] [facility] [place] [address] Nurse Practitioner Hematology/Oncology 08/07/20 Cynthia Cutler, RN [address] [facility] [place] [address] Specialty Car Park Attendant Hematology/Oncology 08/07/20 Kathrine Carpenter MD [address] [facility] [place] [address] Physician Radiation Oncology 08/07/20 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 Relationship Specialty Start Date End Date Gildardo Lacy [address] [place] [address] PCP - General Family Practice 07/16/20 Esdras Cash MD [address] [facility] [place] [address] Physician Hematology/Oncology 08/07/20 Nathaly Biggs, SYSTEM ADMINISTRATION MANAGER.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 [address] [facility] [place] [address] Nurse Practitioner Hematology/Oncology 08/07/20 Cynthia Cutler, RN [address] [facility] [place] [address] Specialty Car Park Attendant Hematology/Oncology 08/07/20 Kathrine Carpenter MD [address] [facility] [place] [address] Physician Radiation Oncology 08/07/20 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 Relationship Specialty Start Date End Date Gildardo Lacy [address] [place] [address] PCP - General Family Practice 07/16/20 Esdras Cash MD [address] [facility] [place] [address] Physician Hematology/Oncology 08/07/20 Nathaly Biggs, SYSTEM ADMINISTRATION MANAGER.[facility] [address] [facility] [place] [address] Nurse Practitioner Hematology/Oncology 08/07/20 Cynthia Cutler, SCOTT [address] [facility] [place] [address] Specialty Car Park Attendant Hematology/Oncology 08/07/20 Kathrine Carpenter MD [address] [facility] [place] [address] Physician Radiation Oncology 08/07/20 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 Relationship Specialty Start Date End Date Gildardo Lacy [address] [address] PCP - General Family Practice 07/16/20 Esdras Cash MD [address] [facility] [place] [address] Physician Hematology/Oncology 08/07/20 Nathaly Biggs, SYSTEM ADMINISTRATION MANAGER.[facility] [address] [facility] [place] [address] Nurse Practitioner Hematology/Oncology 08/07/20 Cynthia Cutler, SCOTT [address] [facility] [place] [address] Specialty Car Park Attendant Hematology/Oncology 08/07/20 Kathrine Carpenter MD [address] [facility] [place] [address] Physician Radiation Oncology 08/07/20 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 Relationship Specialty Start Date End Date Gildardo Lacy [address] [place] [address] PCP - General Family Practice 07/16/20 Esdras Cash MD [address] [facility] [place] [address] Physician Hematology/Oncology 08/07/20 Nathaly Biggs, SYSTEM ADMINISTRATION MANAGER.[facility] [address] [facility] [place] [address] Nurse Practitioner Hematology/Oncology 08/07/20 Cynthia Cutler, SCOTT [address] [facility] [place] [address] Specialty Car Park Attendant Hematology/Oncology 08/07/20 Kathrine Carpenter MD [address] [facility] [place] [address] Physician Radiation Oncology 08/07/20 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 Relationship Specialty Start Date End Date Gildardo Lacy [address] [place] [address] PCP - General Family Practice 07/16/20 Esdras Cash MD [address] [facility] [place] [address] Physician Hematology/Oncology 08/07/20 Nathaly Biggs, SYSTEM ADMINISTRATION MANAGER.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 [address] [facility] [address] Nurse Practitioner Hematology/Oncology 08/07/20 Cynthia Cutler, SCOTT [address] [facility] [place] [address] Specialty Car Park Attendant Hematology/Oncology 08/07/20 Kathrine Carpenter MD [address] [facility] [place] [address] Physician Radiation Oncology 08/07/20 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 Relationship Specialty Start Date End Date Gildardo Lacy [address] [place] [address] PCP - General Family Practice 07/16/20 Esdras Cash MD [address] [facility] [address] [place], [place] [address] Physician Hematology/Oncology 08/07/20 Nathlay Biggs, SYSTEM ADMINISTRATION MANAGER.[facility] [address] [facility] [place] [address] Nurse Practitioner Hematology/Oncology 08/07/20 Cynthia Cutler, SCOTT [address] [facility] [place] [address] Specialty Car Park Attendant Hematology/Oncology 08/07/20 Kathrine Carpenter MD [address] [facility] [place] [address] Physician Radiation Oncology 08/07/20 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 Relationship Specialty Start Date End Date [place] [address] PCP - General Family Practice 07/16/20 Esdras Cash MD [address] [facility] [address] [place], [place] [address] Physician Hematology/Oncology 08/07/20 Nathaly Biggs, SYSTEM ADMINISTRATION MANAGER.[facility] [address] [facility] [place] [address] Nurse Practitioner Hematology/Oncology 08/07/20 Cynthia Cutler, SCOTT [address] [facility] [place] [address] Specialty Car Park Attendant Hematology/Oncology 08/07/20 Kathrine Carpenter MD [address] [facility] [place] [address] Physician Radiation Oncology 08/07/20 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 Relationship Specialty Start Date End Date Reggie Gildardo Butler [address] [place] [address] PCP - General Family Practice 07/16/20 Esdras Cash MD [address] [facility] [place] [address] Physician Hematology/Oncology 08/07/20 Nathaly Biggs, SYSTEM ADMINISTRATION MANAGER.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 [address] [facility] [place] [address] Nurse Practitioner Hematology/Oncology 08/07/20 Cynthia Cutler, RN [address] [facility] [place] [address] Specialty Car Park Attendant Hematology/Oncology 08/07/20 Kathrine Carpenter MD [address] [facility] [place] [address] Physician Radiation Oncology 08/07/20 Amira Powell LSW Ham Stripper 09/16/21 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 Relationship Specialty Start Date End Date ReggieGildardo [address] [place] [address] PCP - General Family Practice 07/16/20 Esdras Cash MD [address] [facility] [address] Physician Hematology/Oncology 08/07/20 Nathaly Biggs, SYSTEM ADMINISTRATION MANAGER.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 [address] [facility] [place] [address] Nurse Practitioner Hematology/Oncology 08/07/20 Cynthia Cutler, RN [address] [facility] [place] [address] Specialty Car Park Attendant Hematology/Oncology 08/07/20 Kathrine Carpenter MD [address] [facility] [place] [address] Physician Radiation Oncology 08/07/20 Amira Powell LSW Ham Stripper 09/16/21 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 Relationship Specialty Start Date End Date ShilpaGildardo villarreal [address] [place] [address] PCP - General Family Practice 07/16/20 Esdras Cash MD [address] [facility] [place] [address] Physician Hematology/Oncology 08/07/20 Nathaly Biggs, SYSTEM ADMINISTRATION MANAGER.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 [address] [facility] [place] [address] Nurse Practitioner Hematology/Oncology 08/07/20 Cynthia Cutler, SCOTT [address] [facility] [place] [address] Specialty Car Park Attendant Hematology/Oncology 08/07/20 Kathrine Carpenter MD [address] [facility] [place] [address] Physician Radiation Oncology 08/07/20 Amira Powell LSW Ham Stripper 09/16/21 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 Relationship Specialty Start Date End Date Gildardo Lacy [address] [place] [address] PCP - General Family Practice 07/16/20 Esdras Cash MD [address] [facility] [place] [address] Physician Hematology/Oncology 08/07/20 Nathaly Biggs, SYSTEM ADMINISTRATION MANAGER.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 [address] [facility] [address] Nurse Practitioner Hematology/Oncology 08/07/20 Cynthia Cutler, SCOTT [address] [facility] [place] [address] Specialty Car Park Attendant Hematology/Oncology 08/07/20 Kathrine Carpenter MD [address] [facility] [place] [address] Physician Radiation Oncology 08/07/20 Amira Powell LSW Ham Stripper 09/16/21 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 Relationship Specialty Start Date End Date Gildardo Lacy [address] [place] [address] PCP - General Family Practice 07/16/20 Esdras Cash MD [address] [facility] [address] Physician Hematology/Oncology 08/07/20 Nathaly Biggs, SYSTEM ADMINISTRATION MANAGER.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 [address] [facility] [place] [address] Nurse Practitioner Hematology/Oncology 08/07/20 Cynthia Cutler RN [address] [facility] [place] [address] Specialty Car Park Attendant Hematology/Oncology 08/07/20 Kathrine Carpenter MD [address] [facility] [place] [address] Physician Radiation Oncology 08/07/20 Amira Powell LSW Ham Stripper 09/16/21 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 Relationship Specialty Start Date End Date Gildardo Lacy [address] [place] [address] PCP - General Family Practice 07/16/20 Esdras Cash MD [address] [facility] [place] [address] Physician Hematology/Oncology 08/07/20 Nathaly Biggs, SYSTEM ADMINISTRATION MANAGER.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 [address] [facility] [place] [address] Nurse Practitioner Hematology/Oncology 08/07/20 Cynthia Cutler, SCOTT [address] [facility] [place] [address] Specialty Car Park Attendant Hematology/Oncology 08/07/20 Kathrine Carpenter MD [address] [facility] [place] [address] Physician Radiation Oncology 08/07/20 Amira Powell LSW Ham Stripper 09/16/21 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 Relationship Specialty Start Date End Date Gildardo Lacy [address] [place] [address] PCP - General Family Practice 07/16/20 Esdras Cash MD [address] [facility] [place] [address] Physician Hematology/Oncology 08/07/20 Nathaly Biggs, SYSTEM ADMINISTRATION MANAGER.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 [address] [facility] [place] [address] Nurse Practitioner Hematology/Oncology 08/07/20 Cynthia Cutler, SCOTT [address] [facility] [place] [address] Specialty Car Park Attendant Hematology/Oncology 08/07/20 Kathrine Carpenter MD [address] [facility] [place] [address] Physician Radiation Oncology 08/07/20 Amira Powell LSW Ham Stripper 09/16/21 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 Relationship Specialty Start Date End Date Gildardo Lacy [address] [place] [address] PCP - General Family Practice 07/16/20 Esdras Cash MD [address] [facility] [address] [place], [place] [address]70 Physician Hematology/Oncology 08/07/20 Nathaly Biggs, SYSTEM ADMINISTRATION MANAGER.[address] [place] [address] Nurse Practitioner Hematology/Oncology 08/07/20 Cynthia Cutler, SCOTT [address] [place] [address] [place] [address] Specialty Car Park Attendant Hematology/Oncology 08/07/20 Kathrine Carpenter MD [address] [place] [address] [place] [address] Physician Radiation Oncology 08/07/20 Amira Powell LSW Ham Stripper 09/16/21 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 Relationship Specialty Start Date End Date Gildardo Lacy [address] [place] [address] PCP - General Family Practice 07/16/20 Esdras Cash MD [address] [place] [address] [place] [address] Physician Hematology/Oncology 08/07/20 Nathaly Biggs, SYSTEM ADMINISTRATION MANAGER.[address] [place] [address] Nurse Practitioner Hematology/Oncology 08/07/20 Cynthia Cutler, SCOTT [address] [place] [address] [place] [address] Specialty Car Park Attendant Hematology/Oncology 08/07/20 Kathrine Carpenter MD [address] [place] [address] [place] [address] Physician Radiation Oncology 08/07/20 Amira Powell LSW Ham Stripper 09/16/21 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 Relationship Specialty Start Date End Date Gildardo Lacy [address] [place] [address] PCP - General Family Practice 07/16/20 Esdras Cash MD [address] [facility] [place] [address] Physician Hematology/Oncology 08/07/20 Nathaly Biggs, SYSTEM ADMINISTRATION MANAGER.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 [address] [facility] [place] [address] Nurse Practitioner Hematology/Oncology 08/07/20 Cynthia Cutler, RN [address] [facility] [place] [address] Specialty Car Park Attendant Hematology/Oncology 08/07/20 Kathrine Carpenter MD [address] [facility] [place] [address] Physician Radiation Oncology 08/07/20 Amira Powell LSW Ham Stripper 09/16/21 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 Relationship Specialty Start Date End Date KalpanaGildardo stone [address] [place] [address] PCP - General Family Practice 07/16/20 Esdras Cash MD [address] [facility] [place] [address] Physician Hematology/Oncology 08/07/20 Nathaly Biggs, SYSTEM ADMINISTRATION MANAGER.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 [address] [facility] [place] [address] Nurse Practitioner Hematology/Oncology 08/07/20 Cynthia Cutler, RN [address] [facility] [place] [address] Specialty Car Park Attendant Hematology/Oncology 08/07/20 Kathrine Carpenter MD [address] [facility] [place] [place] [address] Physician Radiation Oncology 08/07/20 Amira Powell LSW Ham Stripper 09/16/21 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 Relationship Specialty Start Date End Date Gildardo Lacy [address] [place] [address] PCP - General Family Practice 07/16/20 Esdras Cash MD [address] [facility] [place] [address] Physician Hematology/Oncology 08/07/20 Nathaly Biggs, SYSTEM ADMINISTRATION MANAGER.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 [address] [facility] [place] [address] Nurse Practitioner Hematology/Oncology 08/07/20 Cynthia Cutler, SCOTT [address] [facility] [place] [address] Specialty Car Park Attendant Hematology/Oncology 08/07/20 Kathrine Carpenter MD [address] [facility] [place] [address] Physician Radiation Oncology 08/07/20 Amira Powell LSW Ham Stripper 09/16/21 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 Relationship Specialty Start Date End Date ReggieGildardo [address] [place] [address] PCP - General Family Practice 07/16/20 Esdras Cash MD [address] [facility] [place] [address] Physician Hematology/Oncology 08/07/20 Nathaly Biggs, SYSTEM ADMINISTRATION MANAGER.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 [address] [facility] [place] [address] Nurse Practitioner Hematology/Oncology 08/07/20 Cynthia Cutler, SCOTT [address] [facility] [address] [place], [place] [address]9970 Specialty Car Park Attendant Hematology/Oncology 08/07/20 Kathrine Carpenter MD [address] [facility] [address] [place], [place] [address] Physician Radiation Oncology 08/07/20 Amira Powell LSW Ham Stripper 09/16/21 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 Relationship Specialty Start Date End Date Gildardo Lacy [address] [facility] [place] [address] PCP - General Family Medicine 07/16/20 Esdras Cash MD [address] [facility] [place] [address] Physician Hematology/Oncology 08/07/20 Nathaly Biggs, SYSTEM ADMINISTRATION MANAGER.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 [address] [facility] [place] [address] Nurse Practitioner Hematology/Oncology 08/07/20 Cynthia Cutler, SCOTT [address] [facility] [place] [address] Specialty Car Park Attendant Hematology/Oncology 08/07/20 Kathrine Carpenter MD [address] [facility] [place] [address] Physician Radiation Oncology 08/07/20 Amira Powell, LEGAL RESEARCH ANALYST Ham Stripper 09/16/21 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 Relationship Specialty Start Date End Date Gildardo Lacy [address] [place] [address] PCP - General Family Medicine 07/16/20 Esdras Cash MD [address] [facility] [place] [address] Physician Hematology/Oncology 08/07/20 Nathaly Biggs, SYSTEM ADMINISTRATION MANAGER.[facility] [address] [facility] [place] [address] Nurse Practitioner Hematology/Oncology 08/07/20 Cynthia Cutler, SCOTT [address] [facility] [place] [address] Specialty Car Park Attendant Hematology/Oncology 08/07/20 Kathrine Carpenter MD [address] [place] [address] [place] [address] Physician Radiation Oncology 08/07/20 Amira Powell LSW Ham Stripper 09/16/21 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 Relationship Specialty Start Date End Date Gildardo Lacy [address] [place] [address] PCP - General Family Medicine 07/16/20 Esdras Cash MD [address] [place] [address] [place] [address] Physician Hematology/Oncology 08/07/20 Nathaly Biggs, SYSTEM ADMINISTRATION MANAGER.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 [address] [facility] [place] [address] Nurse Practitioner Hematology/Oncology 08/07/20 Cynthia Cutler, RN [address] [place] [address] [place] [address] Specialty Car Park Attendant Hematology/Oncology 08/07/20 Kathrine Carpenter MD [address] [facility] [place] [address] Physician Radiation Oncology 08/07/20 Amira Powell LSW Ham Stripper 09/16/21 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 Relationship Specialty Start Date End Date Gildardo Lacy [address] [place] [address] PCP - General Family Medicine 07/16/20 Esdras Cash MD [address] [place] [address] [place] [address] Physician Hematology/Oncology 08/07/20 Nathaly Biggs, SYSTEM ADMINISTRATION MANAGER.[address] [place], [place] [address] Nurse Practitioner Hematology/Oncology 08/07/20 Cynthia Cutler, SCOTT [address] [place] [address] [place] [address] Specialty Car Park Attendant Hematology/Oncology 08/07/20 Kathrine Carpenter MD [address] [place] [address] [place] [address] Physician Radiation Oncology 08/07/20 Amira Powell LSW Ham Stripper 09/16/21 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 Relationship Specialty Start Date End Date Gildardo Lacy [address] [facility] [place] [facility] [place] [address] PCP - General Family Medicine 07/16/20 Esdras Cash MD [address] [place] [address] [place] [address] Physician Hematology/Oncology 08/07/20 Nathaly Biggs, SYSTEM ADMINISTRATION MANAGER.[address] [address] Nurse Practitioner Hematology/Oncology 08/07/20 Cynthia Cutler, SCOTT [address] [place] [address] [place] [address] Specialty Car Park Attendant Hematology/Oncology 08/07/20 Kathrine Carpenter MD [address] [place] [address] [place] [address] Physician Radiation Oncology 08/07/20 Amira Powell LSW Ham Stripper 09/16/21 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 Relationship Specialty Start Date End Date Gildardo Lacy [address] [place] [address] PCP - General Family Medicine 07/16/20 Esdras Cash MD [address] [facility] [place] [address] Physician Hematology/Oncology 08/07/20 Nathaly Biggs, SYSTEM ADMINISTRATION MANAGER.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 [address] [facility] [address] [place], [place] [address] Nurse Practitioner Hematology/Oncology 08/07/20 Cynthia Cutler, SCOTT [address] [facility] [place] [address] Specialty Car Park Attendant Hematology/Oncology 08/07/20 Kathrine Carpenter MD [address] [facility] [place] [address] Physician Radiation Oncology 08/07/20 Amira Powell LSW Ham Stripper 09/16/21 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 Relationship Specialty Start Date End Date Gildardo Lacy Carrie [address] [place] [address] PCP - General Family Medicine 07/16/20 Esdras Cash MD [address] [place] [address] [place] [address] Physician Hematology/Oncology 08/07/20 Nathaly Biggs, SYSTEM ADMINISTRATION MANAGER.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 [address] [facility] [place] [address] Nurse Practitioner Hematology/Oncology 08/07/20 Cynthia Cutler, RN [address] [facility] [place] [address] Specialty Car Park Attendant Hematology/Oncology 08/07/20 Kathrine Carpenter MD [address] [facility] [place] [address] Physician Radiation Oncology 08/07/20 Amira Powell LSW Ham Stripper 09/16/21 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 Relationship Specialty Start Date End Date Gildardo Lacy [address] [place] [address] PCP - General Family Medicine 07/16/20 Esdras Cash MD [address] [place] [address] [place] [address] Physician Hematology/Oncology 08/07/20 Nathaly Biggs APRN.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 [address] [facility] [place] [address] Nurse Practitioner Hematology/Oncology 08/07/20 Cynthia Cutler, SCOTT [address] [facility] [place] [address] Specialty Car Park Attendant Hematology/Oncology 08/07/20 Kathrine Carpenter MD [address] [facility] [place] [address] Physician Radiation Oncology 08/07/20 Amira Powell LSW Ham Stripper 09/16/21 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 Relationship Specialty Start Date End Date Gildardo Lacy [address] [place] [address] PCP - General Family Medicine 07/16/20 Esdras Cash MD [address] [facility] [place] [address] Physician Hematology/Oncology 08/07/20 Nathaly Biggs, SYSTEM ADMINISTRATION MANAGER.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 [address] [facility] [place] [place] [address] Nurse Practitioner Hematology/Oncology 08/07/20 Ktahrine Carpenter MD [address] [facility] [place] [address] Physician Radiation Oncology 08/07/20 Amira Powell LSW Ham Stripper 09/16/21 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 Relationship Specialty Start Date End Date Gildardo Lacy MD PCP - General 05/04/99 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 Relationship Specialty Start Date End Date Gildardo Lacy [address] [place] [address] PCP - General Family Medicine 07/16/20 Esdras Cash MD [address] [facility] [place] [address] Physician Hematology/Oncology 08/07/20 Nathaly Biggs, SYSTEM ADMINISTRATION MANAGER.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 [address] [facility] [place] [address] Nurse Practitioner Hematology/Oncology 08/07/20 Kathrine Carpenter MD [address] [facility] [place] [address] Physician Radiation Oncology 08/07/20 Amira Powell LSW Ham Stripper 09/16/21 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 Relationship Specialty Start Date End Date Gildardo Lacy [address] [place] [address] PCP - General Family Medicine 07/16/20 Esdras Cash MD [address] [facility] [place] [address] Physician Hematology/Oncology 08/07/20 Nathaly Biggs, SYSTEM ADMINISTRATION MANAGER.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 [address] [facility] [place] [address] Nurse Practitioner Hematology/Oncology 08/07/20 Kathrine Carpenter MD [address] [facility] [place] [address] Physician Radiation Oncology 08/07/20 Amira Powell LSW Ham Stripper 09/16/21 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 Relationship Specialty Start Date End Date Gildardo Lacy [address] [place] [address] PCP - General Family Medicine 07/16/20 Esdras Cash MD [address] [place] [address] [place] [address] Physician Hematology/Oncology 08/07/20 Nathaly Biggs, SYSTEM ADMINISTRATION MANAGER.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 [address] [place] [address] [place] [address] Nurse Practitioner Hematology/Oncology 08/07/20 Kathrine Carpenter MD [address] [facility] [place] [address] Physician Radiation Oncology 08/07/20 Amira Powell LSW Ham Stripper 09/16/21 Team Status: Active Member Role Status Dates Gildardo Lacy MD Primary Care Provider Active Team Status: Inactive Member Role Status Dates Gildardo Lacy MD Primary Care Provider Active S tart: September 08, 2023 End: September 08, 2023 Carmen Neely MD Attending Provider Active St art: September 08, 2023 End: September 08, 2023 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 Relationship Specialty Start Date End Date Gildardo Lacy [address] [place] [address] PCP - General Family Medicine 07/16/20 Esdras Cash MD [address] [facility] [place] [address] Physician Hematology/Oncology 08/07/20 Nathaly Biggs, ALEXY.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 [address] [facility] [place] [address] Nurse Practitioner Hematology/Oncology 08/07/20 Kathrine Carpenter MD [address] [facility] [place] [address] Physician Radiation Oncology 08/07/20 Amira Powell LSW Ham Stripper 09/16/21 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 Relationship Specialty Start Date End Date Gildardo Lacy [address] [place] [address] PCP - General Family Medicine 07/16/20 Esdras Cash MD [address] [facility] [place] [address] Physician Hematology/Oncology 08/07/20 Nathaly Biggs, SYSTEM ADMINISTRATION MANAGER.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 [address] [facility] [place] [address] Nurse Practitioner Hematology/Oncology 08/07/20 Kathrine Carpenter MD [address] [facility] [place] [address] Physician Radiation Oncology 08/07/20 Amira Powell LSW Ham Stripper 09/16/21 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 Relationship Specialty Start Date End Date Reggie Gildardo Carrie [address] [place] [address] PCP - General Family Medicine 07/16/20 Esdras Cash MD [address] [facility] [place] [address] Physician Hematology/Oncology 08/07/20 Nathaly Biggs, SYSTEM ADMINISTRATION MANAGER.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 [address] [facility] [place] [address] Nurse Practitioner Hematology/Oncology 08/07/20 Cynthia Cutler, SCOTT [address] [facility] [place] [address] Specialty Car Park Attendant Hematology/Oncology 08/07/20 03/04/23 Kathrine Carpenter MD [address] [facility] [place] [address] Physician Radiation Oncology 08/07/20 Amira Powell LSW Ham Stripper 09/16/21 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 Relationship Specialty Start Date End Date Gildardo Lacy [address] [address] PCP - General Family Medicine 07/16/20 Esdras Cash MD [address] [facility] [place] [address] Physician Hematology/Oncology 08/07/20 Nathaly Biggs, SYSTEM ADMINISTRATION MANAGER.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 [address] [place] [address] [place] [address] Nurse Practitioner Hematology/Oncology 08/07/20 Cynthia Cutler, SCOTT [address] [facility] [place] [address] Specialty Car Park Attendant Hematology/Oncology 08/07/20 03/04/23 Kathrine Carpenter MD [address] [place] [address] [place] [address] Physician Radiation Oncology 08/07/20 Amira Powell LSW Ham Stripper 09/16/21 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 Relationship Specialty Start Date End Date Gildardo Lacy [address] [place] [address] PCP - General Family Medicine 07/16/20 Esdras Cash MD [address] [place] [address] [place] [address] Physician Hematology/Oncology 08/07/20 Nathaly Biggs APRN.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 [address] [place] [address] [place] [address] Nurse Practitioner Hematology/Oncology 08/07/20 Cynthia Cutler, SCOTT [address] [facility] [place] [address] Specialty Car Park Attendant Hematology/Oncology 08/07/20 03/04/23 Kathrine Carpenter MD [address] [facility] [place] [address] Physician Radiation Oncology 08/07/20 Amira Powell LSW Ham Stripper 09/16/21 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 Relationship Specialty Start Date End Date Gildardo Lacy [address] [place] [address] PCP - General Family Medicine 07/16/20 Esdras Cash MD [address] [facility] [place] [address] Physician Hematology/Oncology 08/07/20 Nathaly Biggs, SYSTEM ADMINISTRATION MANAGER.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 [address] [facility] [place] [address] Nurse Practitioner Hematology/Oncology 08/07/20 Cynthia Cutler, SCOTT [address] [facility] [place] [address] Specialty Car Park Attendant Hematology/Oncology 08/07/20 03/04/23 Kathrine Carpenter MD [address] [facility] [place] [address] Physician Radiation Oncology 08/07/20 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 Relationship Specialty Start Date End Date Gildardo Lacy [address] [place] [address] PCP - General Family Medicine 07/16/20 Esdras Cash MD [address] [facility] [place] [address] Physician Hematology/Oncology 08/07/20 Nathaly Biggs, SYSTEM ADMINISTRATION MANAGER.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 [address] [facility] [place] [address] Nurse Practitioner Hematology/Oncology 08/07/20 Cynthia Cutler, SCOTT [address] [facility] [place] [address] Specialty Car Park Attendant Hematology/Oncology 08/07/20 03/04/23 Kathrine Carpenter MD [address] [place] [address] [place] [address] Physician Radiation Oncology 08/07/20 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 Relationship Specialty Start Date End Date Gildardo Lacy MD [address] [place] [address] [place] [address] PCP - General Cardiology 09/12/22 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 Relationship Specialty Start Date End Date Gildardo Lacy MD [address] [place] [address] [place] [address] PCP - General Cardiology 09/12/22 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 Relationship Specialty Start Date End Date Gildardo Lacy MD [address] [place] [address] PCP - General Cardiology 09/12/22 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 Relationship Specialty Start Date End Date Gildardo Lacy MD [address] [place] [address] [place] [address] PCP - General Cardiology 09/12/22 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 Relationship Specialty Start Date End Date Gildardo Lacy MD [address] [place] [address] PCP - General Cardiology 09/12/22 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 Relationship Specialty Start Date End Date Gildardo Lacy MD [address] [place] [address] [place] [address] PCP - General Cardiology 09/12/22 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 Relationship Specialty Start Date End Date Gildardo Lacy MD [address] [place] [address] PCP - General Cardiology 09/12/22 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 Relationship Specialty Start Date End Date Gildardo Lacy MD [address] [place] [address] [place] [address] PCP - General Cardiology 09/12/22 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 Relationship Specialty Start Date End Date Gildardo Lacy MD [address] [place] [address] [place] [address] PCP - General Cardiology 09/12/22 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 Relationship Specialty Start Date End Date Gildardo Lacy MD [address] [place] [address] [place] [address] PCP - General Cardiology 09/12/22 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 Relationship Specialty Start Date End Date Gildardo Lacy MD [address] [place] [address] [place] [address] PCP - General Cardiology 09/12/22 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 Relationship Specialty Start Date End Date Gildardo Lacy MD [address] [place] [address] [place] [address] PCP - General Cardiology 09/12/22 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 Relationship Specialty Start Date End Date Gildardo Lacy MD [address] [place] [address] PCP - General Family Medicine 07/16/20 Esdras Cash MD [address] [place] [address] [place] [address] Physician Hematology/Oncology 08/07/20 Nathaly Biggs, ALEXY.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 [address] [facility] [address] Nurse Practitioner Hematology/Oncology 08/07/20 Kathrine Carpenter MD [address] [facility] [address] [place] [address] Physician Radiation Oncology 08/07/20 Amira Powell LSW Ham Stripper 09/16/21 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 Relationship Specialty Start Date End Date Gildardo Lacy MD [address] [place] [id number] PCP - General Cardiology 09/12/22 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 Relationship Specialty Start Date End Date Gildardo Lacy MD [address] [place] [address] [place] [address] PCP - General Cardiology 09/12/22 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 Relationship Specialty Start Date End Date Gildardo Lacy MD [address] [place] [address] [place] [address] PCP - General Cardiology 09/12/22 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 Relationship Specialty Start Date End Date Gildardo Lacy MD [address] [place] [address] PCP - General Family Medicine 11/17/23 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 Relationship Specialty Start Date End Date Gildardo Lacy MD [address] [place] [address] [place] [address] PCP - General Cardiology 09/12/22 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 Relationship Specialty Start Date End Date Gildardo Lacy MD [address] [place] [address] [place] [address] PCP - General Cardiology 09/12/22 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 Relationship Specialty Start Date End Date Gildardo Lacy MD [address] [place] [address] [place] [address] PCP - General Cardiology 09/12/22 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 Relationship Specialty Start Date End Date Gildardo Lacy MD [address] [place] [address] [place] [address] PCP - General Cardiology 09/12/22 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 Relationship Specialty Start Date End Date Gildardo Lacy MD [address] [place] [address] [place] [address] PCP - General Cardiology 09/12/22 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 Relationship Specialty Start Date End Date Gildardo Lacy MD [address] [place] [address] [place] [address] PCP - General Cardiology 09/12/22 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 Relationship Specialty Start Date End Date Gildardo Lacy MD [address] [place] [address] [place] [address] PCP - General Cardiology 09/12/22 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 Relationship Specialty Start Date End Date Gildardo Lacy MD [address] [place] [address] [place] [address] PCP - General Cardiology 09/12/22 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 Relationship Specialty Start Date End Date Gildardo Lacy MD [address] [place] [address] PCP - General Family Medicine 07/16/20 Esdras Cash MD [address] [place] [address] [place] [address] Physician Hematology/Oncology 08/07/20 Nathaly Biggs, [employer]LE[employer].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 [address] [facility] [place] [address] Nurse Practitioner Hematology/Oncology 08/07/20 Kathrine Carpenter MD [address] [place] [address] [place] [address] Physician Radiation Oncology 08/07/20 Amira Powell LSW Ham Stripper 09/16/21 Cassie Hood PA [address] [address] [place] [address] Family Medicine 05/24/24 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 Relationship Specialty Start Date End Date Gildardo Lacy MD [address] [place] [address] PCP - General Cardiology 09/12/22 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 Relationship Specialty Start Date End Date Gildardo Lacy MD [address] [place] [place] [address] PCP - General Family Medicine 07/16/20 Esdras Cash MD [address] [place] [address] [place] [address] Physician Hematology/Oncology 08/07/20 Nathaly Biggs, [employer]LE[employer].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 [address] [facility] [place] [address] Nurse Practitioner Hematology/Oncology 08/07/20 Kathrine Carpenter MD [address] [facility] [place] [address] Physician Radiation Oncology 08/07/20 Amira Powell, LEGAL RESEARCH ANALYST Ham Stripper 09/16/21 Cassie Hood PA [address] [facility] [address] [place] [address] Family Medicine 05/24/24 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 Relationship Specialty Start Date End Date Gildardo Lacy MD [address] [place] [address] PCP - General Family Medicine 07/16/20 Esdras Cash MD [address] [facility] [place] [address] Physician Hematology/Oncology 08/07/20 Nathaly Biggs APRN.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 [address] [facility] [place] [place] [address] Nurse Practitioner Hematology/Oncology 08/07/20 Kathrine Carpenter MD [address] [facility] [place] [address] Physician Radiation Oncology 08/07/20 Aimra Powell LSW Ham Stripper 09/16/21 Cassie Hood PA [address] [facility] [address] [place] [address] Family Medicine 05/24/24 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 Relationship Specialty Start Date End Date Gildardo Lacy MD [address] [place] [address] PCP - General Cardiology 09/12/22 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 Relationship Specialty Start Date End Date Gildardo Lacy MD [address] [place] [place] [address] PCP - General Family Medicine 07/16/20 Esdras Cash MD [address] [facility] [place] [address] Physician Hematology/Oncology 08/07/20 Nathaly Biggs APRN.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 [address] [facility] [place] [place] [address] Nurse Practitioner Hematology/Oncology 08/07/20 Kathrine Carpenter MD [address] [facility] [place] [place] [address] Physician Radiation Oncology 08/07/20 Amira Powell LSW Ham Stripper 09/16/21 Cassie Hood PA [address] [place] [address] [place] [address] Family Medicine 05/24/24 Goals (unrecognized section and [...] BE BASED ON THE PRIMARY CLINICAL RECORDS. [employer] provides no warranty or guarantee of the accuracy or completeness of information in this document.
[2024-07-24] VITALS (8 sets, daily range): BP systolic 125–161; BP diastolic 67–80; PULSE 73–109; TEMP 36.6–36.8; O2SAT 91–93
[2024-07-24] MEDS: OXYCODONE HCL/ACETAMINOPHEN 5MG/325MG 1 TAB PO (00:15)
[2024-07-24] MEDS: ZOLPIDEM TARTRATE 10 MG TABLET PO (00:17)
[2024-07-24 00:47] LABS: Ethanol <3 mg/dL
[2024-07-24 00:47] LABS: Amphetamine Screen Urine NEGATIVE (NEGATIVE); Barbiturates Screen Urine NEGATIVE (NEGATIVE); Benzodiazepines Screen Urine NEGATIVE (NEGATIVE); Buprenorphine Screen Urine NEGATIVE (NEGATIVE); Cannabinoid Screen Urine NEGATIVE (NEGATIVE); Cocaine Screen Urine NEGATIVE (NEGATIVE); Methadone Screen Urine NEGATIVE (NEGATIVE); Methamphetamines Screen Urine NEGATIVE (NEGATIVE); Opiate Screen Urine NEGATIVE (NEGATIVE); Oxycodone Screen Urine NEGATIVE (NEGATIVE); Phencyclidine Screen Urine NEGATIVE (NEGATIVE); Tricyclic Antidepressant Urine NEGATIVE (NEGATIVE)
[2024-07-24] MEDS: OXYCODONE HCL 5 MG TABLET 10 MG PO (05:24)
[2024-07-24] MEDS: ALBUTEROL SULFATE 2.5 MG/3 ML VIAL NEB IH (05:30)
[2024-07-24 06:00] LABS: Hematocrit 37.6 % (42.0-54.0); Hemoglobin 12.7 g/dL (14.0-18.0); Mean Corpuscular HGB Conc 33.8 g/dL (29.9-35.2); Mean Corpuscular Volume 100.5 fL (80.0-94.0); Mean Platelet Volume 9.2 fL (9.5-13.5); Platelet Count 256 10^3/uL (150-450); Red Blood Count 3.74 10^6/uL (4.70-6.10); Red Cell Distribution Width 13.6 % (11.0-15.0)
[2024-07-24 06:15] LABS: Estimated Average Glucose 88 mg/dL; Glycohemoglobin A1C 4.7 % (4.5-6.2)
[2024-07-24 06:24] LABS: Anion Gap 11.1; BUN Creatinine Ratio 25.6; Calcium 9.4 mg/dL (8.5-10.1); Carbon Dioxide 25.8 mmol/L (21.0-32.0); Chloride 105 mmol/L (98-107); Chol HDL Ratio 1.8; Cholesterol 117 mg/dL (<=200); Estimated GFR (African America >60 (>=60 mL/min/1.73m^2); Estimated GFR (Non-African Ame >60 (>=60 mL/min/1.73m^2); Glucose 107 mg/dL (74-106); HDL Cholesterol 66 mg/dL (40-60); Magnesium 1.7 mg/dL (1.8-2.4); Potassium 3.9 mmol/L (3.5-5.1); Sodium 138 mmol/L (136-145); Thyroid Stimulating Hormone 2.328 uIU/mL (0.358-3.740); Triglycerides 68 mg/dL (<=150); VLDL CHOLESTEROL 13.6 mg/dL
[2024-07-24] MEDS: OMEPRAZOLE 20 MG CAPSULE.DR 40 MG PO (08:55)
[2024-07-24] MEDS: ASPIRIN 81 MG TABLET.DR PO (08:55)
[2024-07-24] MEDS: MEGESTROL ACETATE 400 MG/10 ML ORAL.SUSP 20 MG PO (08:56)
--- NOTE | 2024-07-24 11:49 | P.HP_ITS ---
HPI H&P: HPI History of Present Illness Chief complaint: left CVA hypomagnemia Narrative: Patient left AMA prior to being seen, information obtained from chart. 63 y/o male to ER with left sided weakness. History of TIA in past and carotid artery stenosis. Weakness persisted and to ER. CT head showed old infarcts but no acute change. Discussed with teleneurology who recommend monitoring and MRI. Patient on aspirin daily but often misses doses. Admitted for monitoring. Opioid HPI Opioid Management Most Recent Pain and Opioid Data: Last Pain Scale 3 07/24/24 09:03 07/24/24 Last Pain Assessment 07/24/24 09:03 Last MAR Pain Assessment 07/24/24 06:33 Last ORT Total Score 8 07/23/24 23:05 07/23/24 Last ORT Risk Category High Risk 07/23/24 23:05 07/23/24 Ur Phencyclidine Scrn Negative (NEGATIVE) 07/23/24 19:50 07/03 06/28 PFSH PFS Medical History (Updated 07/24/24 @ 09:58 by Gildardo Paredes MD) Peripheral arterial disease ?I73.9 - Peripheral vascular disease, unspecified (ICD-10) Bilateral carotid artery stenosis ?I65.23 - Occlusion and stenosis of bilateral carotid arteries (ICD-10) Benign essential hypertension ?I10 - Essential (primary) hypertension (ICD-10) COPD (chronic obstructive pulmonary disease) ?J44.9 - Chronic obstructive pulmonary disease, unspecified (ICD-10) Chemotherapy-induced neuropathy ?G62.0 - Drug-induced polyneuropathy (ICD-10) ?T45.1X5A - Adverse effect of antineoplastic and immunosuppressive drugs, initial encounter (ICD-10) Acute exacerbation of chronic obstructive pulmonary disease ?J44.1 - Chronic obstructive pulmonary disease with (acute) exacerbation (ICD-10) Pneumonia ?J18.9 - Pneumonia, unspecified organism (ICD-10) Contusion of multiple sites ?T07.XXXA - Unspecified multiple injuries, initial encounter (ICD-10) History of hypertension ?Z86.79 - Personal history of other diseases of the circulatory system (ICD- 10) History of throat cancer ?Z85.819 - Personal history of malignant neoplasm of unspecified site of lip, oral cavity, and pharynx (ICD-10) Hx of supraventricular tachycardia ?Z86.79 - Personal history of other diseases of the circulatory system (ICD- 10) History of emphysema ?J43.9 - Emphysema, unspecified (ICD-10) History of arthritis ?Z87.39 - Personal history of other diseases of the musculoskeletal system and connective tissue (ICD-10) Hx of TIA (transient ischemic attack) and stroke ?Z86.73 - Personal history of transient ischemic attack (TIA), and cerebral infarction without residual deficits (ICD-10) History of COPD ?Z87.09 - Personal history of other diseases of the respiratory system (ICD- 10) Surgical History Hx of cholecystectomy ?Z90.49 - Acquired absence of other specified parts of digestive tract (ICD- 10) 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 - Acquired absence of spleen (ICD-10) Hx of hernia repair ?Z98.890 - Other specified postprocedural states (ICD-10) ?Z87.19 - Personal history of other diseases of the digestive system (ICD-10) Social History (Updated 07/23/24 @ 23:38 by Magalys Meeks RN) Within the past year, how often did you have a drink containing alcohol: 4 or more times a week Within the past year, how many standard drinks containing alcohol did you have on a typical day: 10 or more Within the past year, how often did you have six or more drinks on one occasion: daily or almost daily Total score: 12 Score interpretation: A score of 4 or more indicates drinking is likely to affect patient's safety. Smoking status: Heavy tobacco smoker Do you want help with school or training: No Little interest or pleasure in doing things: not at all Feeling down, depressed, or hopeless: not at all Meds Home Medications and Allergies Home Medications ?Medication ?Instructions ?Recorded ?Confirmed ?Type omeprazole 40 mg capsule,delayed 40 mg PO DAILY 10/14/22 07/23/24 History release oxycodone-acetaminophen 10 mg-325 1 tab PO Q4H PRN pain 10/14/22 07/23/24 History mg tablet zolpidem 10 mg tablet 10 mg PO DAILY 10/14/22 07/23/24 History aspirin 81 mg tablet,delayed 81 mg PO DAILY 07/23/24 07/23/24 History release (Adult Low Dose Aspirin) fluticasone furoate 100 1 inh inhalation Q24H 07/23/24 07/23/24 History mcg-vilanterol 25 mcg/dose inhalation powder (Breo Ellipta) megestrol 400 mg/10 mL (40 mg/mL) 20 mg PO DAILY 07/23/24 07/23/24 History oral suspension Allergies Allergy/AdvReac Type Severity Reaction Status Date / Time No Known Drug Allergies Allergy Verified 05/31/24 08:54 Exam Constitutional Vital Signs, click to edit/add: Last Vital Signs Temp 97.9 F 07/24/24 07:43 Pulse 109 H 07/24/24 07:50 Resp 20 07/24/24 07:43 BP 161/80 H 07/24/24 07:43 Pulse Ox 91 L 07/24/24 07:43 O2 Del Method Room Air 07/24/24 07:43 Results Labs Labs: Short CBC 07/23/24 07/24/24 Range/Units 20:00 05:46 WBC 7.2 6.0 (4.0-11.0) 10^3/uL Hgb 12.8 L 12.7 L (14.0-18.0) g/dL Hct 37.6 L 37.6 L (42.0-54.0) % Plt Count 239 256 (150-450) 10^3/uL BMP 07/23/24 07/24/24 20:00 05:46 Sodium 134 L 138 Potassium 4.2 3.9 Chloride 100 105 Carbon Dioxide 25.9 25.8 BUN 23.0 H 22.0 H Creatinine 0.87 0.86 Glucose 92 107 H Calcium 9.3 9.4 Liver Function 07/23/24 Range/Units 20:00 Total Bilirubin 1.1 H (0.2-1.0) mg/dL AST 24 (15-37) U/L ALT 15 L (16-63) U/L Alkaline Phosphatase 86 (46-116) U/L Albumin 3.9 (3.4-5.0) g/dL Urine 07/23/24 Range/Units 19:50 Urine Color Lt. yellow (YELLOW) Urine Clarity Clear (CLEAR) Urine pH 6.0 (5.0-9.0) Ur Specific [place] 1.015 (1.005-1.025) Urine Protein Negative (NEG/TRACE) mg/dL Urine Glucose (UA) Negative (NEGATIVE) mg/dL Assessment and Plan Assessment and Plan (1) Acute left-sided muscle weakness: (2) Fall: (3) Cerebrovascular disease: (4) Occlusion of left internal carotid artery: Plan Prior infarct and new left sided weakness. Admitted for MRI and ER told patient would be performed next day (Thursday) but not able to perform until Thursday. Patient upset not able to perform MRI until next day and felt he was lied to. Patient left AMA.
--- NOTE | 2024-07-26 13:33 | CM.DCFOLLOWU ---
Readmitted to hospital
== END 2024-07-24 09:35 | disposition left against medical advice (07) ==
LOC: ER 21:16 → MS 23:00
PROVIDERS: Emergency Medicine; Registered Nurse; Admitting Provider Family Medicine; Emergency Provider Internal Medicine; PCP Family Medicine; Visit Provider Family Medicine
DX: M62.81 Muscle weakness (generalized) (principal); Z53.29 Procedure and treatment not carried out because of patient's decision for other reasons; I67.9 Cerebrovascular disease, unspecified; I69.354 Hemiplegia and hemiparesis following cerebral infarction affecting left non-dominant side; Z91.81 History of falling; I65.22 Occlusion and stenosis of left carotid artery; E83.42 Hypomagnesemia; Z85.21 Personal history of malignant neoplasm of larynx; Z90.49 Acquired absence of other specified parts of digestive tract; Z90.81 Acquired absence of spleen; F17.200 Nicotine dependence, unspecified, uncomplicated; Z79.82 Long term (current) use of aspirin; R07.89 Other chest pain; M79.672 Pain in left foot; Z79.899 Other long term (current) drug therapy
CPT/HCPCS: 36415; 70450; 71101; 73610; 73630; 80048; 80053; 80061; 80307; 80320; 81003; 83036; 83605; 83735; 84443; 84484; 85025; 85027; 85610; 87804; 87811; 93005; 94640; 99285; G0378

== ENCOUNTER 2024-07-25 11:06 | Inpatient (IN) | payer MEDICARE, SELFPAY ==
[2024-07-25] VITALS (20 sets, daily range): BP systolic 100–190; BP diastolic 55–112; PULSE 70–110; TEMP 36.4–37; O2SAT 93–99; BMI 20.8; BMI 18.1
--- NOTE | 2024-07-25 11:30 | ECG_ITS ---
[facility] Test Date: 2024-07-25 Pat Name: ALEJO FLOYD Department: Room: - Gender: Male It Risk Analyst: : 1960 Requested By: 1860 Order Number: [id number] Reading MD: DARLEEN MENCHACA Measurements Intervals [place] Rate: 95 P: 75 GA: 130 QRS: 81 QRSD: 82 T: 79 QT: 372 QTc: 424 Interpretive Statements 1100 Sinus rhythm 1470 with occasional supraventricular premature complexes 9140 abnormal rhythm ECG Compared to ECG 07/23/2024 19:22:42 Sinus arrhythmia no longer present Electronically Signed On 07-25-2024 14:43:30 EDT by DARLEEN MENCHACA
[2024-07-25 11:44] LABS: Basophils Percent Auto 0.8 % (0.2-2.0); Eosinophils Percent Auto 0.2 % (0.9-7.0); Hematocrit 40.1 % (42.0-54.0); Hemoglobin 13.6 g/dL (14.0-18.0); Immature Granulocytes Abs Auto 0.01 10^3/uL (0.00-0.03); Immature Granulocytes Pct Auto 0.2 % (0.0-0.5); Lymphocytes Percent Auto 20.2 % (20.5-60.0); Mean Corpuscular HGB Conc 33.9 g/dL (29.9-35.2); Mean Corpuscular Hemoglobin 34.3 pg (25.9-34.0); Mean Corpuscular Volume 101.3 fL (80.0-94.0); Mean Platelet Volume 9.3 fL (9.5-13.5); Monocytes Absolute Auto 0.5 10^3/uL (0.3-0.8); Monocytes Percent Auto 10.2 % (1.7-12.0); Neutrophils Absolute Auto 3.5 10^3/uL (1.4-6.5); Neutrophils Percent Auto 68.4 % (43.0-75.0); Platelet Count 291 10^3/uL (150-450); Red Blood Count 3.96 10^6/uL (4.70-6.10); Red Cell Distribution Width 13.5 % (11.0-15.0); White Blood Count 5.1 10^3/uL (4.0-11.0)
[2024-07-25 11:53] LABS: Anion Gap 15.3; BUN Creatinine Ratio 13.8; Calcium 9.6 mg/dL (8.5-10.1); Carbon Dioxide 25.1 mmol/L (21.0-32.0); Chloride 99 mmol/L (98-107); Estimated GFR (African America >60 (>=60 mL/min/1.73m^2); Estimated GFR (Non-African Ame >60 (>=60 mL/min/1.73m^2); Glucose 110 mg/dL (74-106); Potassium 4.4 mmol/L (3.5-5.1); Sodium 135 mmol/L (136-145)
--- NOTE | 2024-07-25 12:40 | ED_ITS ---
HPI HPI - General Adult General Chief complaint: Weakness Stated complaint: WEAKNESS Time Seen by Provider: 07/25/24 11:29 Mode of arrival: walk-in History of Present Illness HPI narrative: 63-year-old male to the emergency department chief complaint of left lower extremity weakness. Patient reports he has a history of multiple strokes/TIAs. He reports that he has had intermittent left lower extremity weakness that is been ongoing since 2 to 3 weeks ago. Cause him to have a fall not that long ago. He reports that it would come and go however over the weekend it had been persistent. He came to the emergency department and was admitted to have an MRI. He reports it did not happen as quickly as he wanted so he left AGAINST MEDICAL ADVICE, he now regrets that would like to be admitted. He has not had any changes in his exam or complaints since the previous visit yesterday. Related Data Home Medications ?Medication ?Instructions ?Recorded ?Confirmed omeprazole 40 mg capsule,delayed 40 mg PO DAILY 10/14/22 07/25/24 release oxycodone-acetaminophen 10 mg-325 1 tab PO Q4H PRN pain 10/14/22 07/25/24 mg tablet zolpidem 10 mg tablet 10 mg PO DAILY 10/14/22 07/25/24 aspirin 81 mg tablet,delayed 81 mg PO DAILY 07/23/24 07/25/24 release (Adult Low Dose Aspirin) fluticasone furoate 100 1 inh inhalation Q24H 07/23/24 07/25/24 mcg-vilanterol 25 mcg/dose inhalation powder (Breo Ellipta) megestrol 400 mg/10 mL (40 mg/mL) 20 mg PO DAILY 07/23/24 07/25/24 oral suspension Allergies Allergy/AdvReac Type Severity Reaction Status Date / Time No Known Drug Allergies Allergy Verified 05/31/24 08:54 Opioid HPI Opioid Management Most Recent Opioid Data: Last Pain Scale 3 07/24/24 09:03 07/24/24 Last Pain Assessment 07/24/24 09:03 Last ORT Total Score 8 07/23/24 23:05 07/23/24 Last ORT Risk Category High Risk 07/23/24 23:05 07/23/24 Ur Phencyclidine Scrn Negative (NEGATIVE) 07/23/24 19:50 07/03 06/28 Review of Systems ROS Status of ROS 10 or more systems reviewed and unremark able except as noted in history and below [facility] Medical History (Updated 07/25/24 @ 12:45 by Jonathan Hernandez MD) Peripheral arterial disease ?I73.9 - Peripheral vascular disease, unspecified (ICD-10) Bilateral carotid artery stenosis ?I65.23 - Occlusion and stenosis of bilateral carotid arteries (ICD-10) Benign essential hypertension ?I10 - Essential (primary) hypertension (ICD-10) COPD (chronic obstructive pulmonary disease) ?J44.9 - Chronic obstructive pulmonary disease, unspecified (ICD-10) Chemotherapy-induced neuropathy ?G62.0 - Drug-induced polyneuropathy (ICD-10) ?T45.1X5A - Adverse effect of antineoplastic and immunosuppressive drugs, initial encounter (ICD-10) Acute exacerbation of chronic obstructive pulmonary disease ?J44.1 - Chronic obstructive pulmonary disease with (acute) exacerbation (ICD-10) Pneumonia ?J18.9 - Pneumonia, unspecified organism (ICD-10) Contusion of multiple sites ?T07.XXXA - Unspecified multiple injuries, initial encounter (ICD-10) History of hypertension ?Z86.79 - Personal history of other diseases of the circulatory system (ICD- 10) History of throat cancer ?Z85.819 - Personal history of malignant neoplasm of unspecified site of lip, oral cavity, and pharynx (ICD-10) Hx of supraventricular tachycardia ?Z86.79 - Personal history of other diseases of the circulatory system (ICD- 10) History of emphysema ?J43.9 - Emphysema, unspecified (ICD-10) History of arthritis ?Z87.39 - Personal history of other diseases of the musculoskeletal system and connective tissue (ICD-10) Hx of TIA (transient ischemic attack) and stroke ?Z86.73 - Personal history of transient ischemic attack (TIA), and cerebral infarction without residual deficits (ICD-10) History of COPD ?Z87.09 - Personal history of other diseases of the respiratory system (ICD- 10) Surgical History Hx of cholecystectomy ?Z90.49 - Acquired absence of other specified parts of digestive tract (ICD- 10) 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 - Acquired absence of spleen (ICD-10) Hx of hernia repair ?Z98.890 - Other specified postprocedural states (ICD-10) ?Z87.19 - Personal history of other diseases of the digestive system (ICD-10) Social History (Updated 07/23/24 @ 23:38 by Magalys Meeks RN) Within the past year, how often did you have a drink containing alcohol: 4 or more times a week Within the past year, how many standard drinks containing alcohol did you have on a typical day: 10 or more Within the past year, how often did you have six or more drinks on one occasion: daily or almost daily Total score: 12 Score interpretation: A score of 4 or more indicates drinking is likely to affect patient's safety. Smoking status: Heavy tobacco smoker Do you want help with school or training: No Little interest or pleasure in doing things: not at all Feeling down, depressed, or hopeless: not at all Exam Narrative Exam Narrative: VITALS: I have reviewed the triage vital signs. GENERAL: Chronically ill-appearing adult male in no distress NEURO: Alert and oriented. Moves all extremities. Left-sided facial droop. 4 out of 5 strength with knee flexion extension, 5 out of 5 strength with hip flexion extension, 3 out of 5 strength with plantarflexion dorsiflexion on the left. Sensation is intact in the left upper and lower extremities. No dysarthria, aphasia, ataxia. EYES: PERRL. No scleral icterus or conjunctival injection. No discharge. HENT: Normocephalic, atraumatic. Hearing is grossly intact. Nares grossly patent and without discharge. Mucous membranes moist. NECK: No JVD. Patient moves neck without restriction. CARDIO: Rhythm regular. Normal rate. No murmur, rub, or gallop. Pulses equal bilaterally in the upper and lower extremity. No lower extremity edema. PULM: Lungs clear to auscultation in all solo. No wheezes, rales, or rhonchi. No conversational dyspnea. No splinting, stridor, or accessory muscle use. GI/: Abdomen is soft and non-tender. Normoactive bowel sounds. EXTREMITIES: Symmetric muscle bulk. No joint swelling. No clubbing, cyanosis, or deformity. SKIN: Warm and dry. Normal turgor. No rash or lesions appreciated. PSYCH: Mood, affect, and interaction is appropriate to the setting. Constitutional Vital Signs, click to edit/add: Last Vital Signs Temp 98.6 F 07/25/24 11:12 Pulse 110 H 07/25/24 11:12 Resp 18 07/25/24 11:12 BP 171/112 H 07/25/24 11:12 Pulse Ox 98 07/25/24 11:12 O2 Del Method Room Air 07/25/24 11:12 Course Vital Signs Vital signs: Vital Signs Temperature 98.6 F 07/25/24 11:12 Pulse Rate 110 H 07/25/24 11:12 Respiratory Rate 18 07/25/24 11:12 Blood Pressure 171/112 H 07/25/24 11:12 Pulse Oximetry 98 07/25/24 11:12 Oxygen Delivery Method Room Air 07/25/24 11:12 Temperature 98.6 F 07/25/24 11:12 Pulse Rate 110 H 07/25/24 11:12 Respiratory Rate 18 07/25/24 11:12 Blood Pressure 171/112 H 07/25/24 11:12 Pulse Oximetry 98 07/25/24 11:12 Oxygen Delivery Method Room Air 07/25/24 11:12 Medical Decision Making MDM Narrative Medical decision making narrative: 63-year-old male returns for admission after leaving AGAINST MEDICAL ADVICE to obtain MRI and stroke workup. Vital stable, the patient is afebrile. There is no change in his exam from the previous documented. Basic labs are unchanged. Case was discussed with the hospitalist who agrees to admit. Medical Records Medical records reviewed: Yes I reviewed the patient's medical records Lab Data Lab results reviewed: Yes I reviewed the patient's lab results Labs: Lab Results 07/25/24 Range/Units 11:35 WBC 5.1 (4.0-11.0) 10^3/uL RBC 3.96 L (4.70-6.10) 10^6/uL Hgb 13.6 L (14.0-18.0) g/dL Hct 40.1 L (42.0-54.0) % MCV 101.3 H (80.0-94.0) fL MCH 34.3 H (25.9-34.0) pg MCHC 33.9 (29.9-35.2) g/dL RDW 13.5 (11.0-15.0) % Plt Count 291 (150-450) 10^3/uL MPV 9.3 L (9.5-13.5) fL Neut % (Auto) 68.4 (43.0-75.0) % Lymph % (Auto) 20.2 L (20.5-60.0) % [place] % (Auto) 10.2 (1.7-12.0) % Eos % (Auto) 0.2 L (0.9-7.0) % Baso % (Auto) 0.8 (0.2-2.0) % Neut # (Auto) 3.5 (1.4-6.5) 10^3/uL Lymph # (Auto) 1.0 L (1.2-3.8) 10^3/uL [place] # (Auto) 0.5 (0.3-0.8) 10^3/uL Eos # (Auto) 0.0 (0.0-0.7) 10^3/uL Baso # (Auto) 0.0 (0.0-0.1) 10^3/uL Abs Immat Gran (auto) 0.01 (0.00-0.03) 10^3/uL Imm/Tot Granulo (auto) 0.2 (0.0-0.5) % Sodium 135 L (136-145) mmol/L Potassium 4.4 (3.5-5.1) mmol/L Chloride 99 (98-107) mmol/L Carbon Dioxide 25.1 (21.0-32.0) mmol/L Anion Gap 15.3 BUN 13.0 (7.0-18.0) mg/dL Creatinine 0.94 (0.70-1.30) mg/dL Est GFR ( Amer) >60 (>=60 mL/min/1.73m^2) Est GFR (Non-Af Amer) >60 (>=60 mL/min/1.73m^2) BUN/Creatinine Ratio 13.8 Glucose 110 H (74-106) mg/dL Calcium 9.6 (8.5-10.1) mg/dL ECG Data Attestation: I personally reviewed and interpreted this ECG as follows: (Normal sinus rhythm at a rate of 95. No STEMI. Normal QTc.) Discharge Plan Discharge Chief Complaint: Weakness Clinical Impression: Acute left-sided muscle weakness Patient Disposition: Admitted as Observation Time of Disposition Decision: 12:44 Condition: Good Mode of Transportation: Private Vehicle Prescriptions / Home Meds: No Action omeprazole 40 mg capsule,delayed release(DR/EC) 40 mg PO DAILY oxycodone-acetaminophen 10-325 mg tablet 1 tab PO Q4H PRN (Reason: pain) zolpidem 10 mg tablet 10 mg PO DAILY megestrol 400 mg/10 mL (40 mg/mL) suspension 20 mg PO DAILY fluticasone furoate-vilanterol [Breo Ellipta] 100-25 mcg/dose blister with device 1 inh INHALATION Q24H aspirin [Adult Low Dose Aspirin] 81 mg tablet,delayed release (DR/EC) 81 mg PO DAILY Print Language: Guamanian Referrals: Gildardo Paredes MD [Primary Care Provider] - 1 week
--- NOTE | 2024-07-25 13:33 | P.HP_ITS ---
HPI H&P: HPI History of Present Illness Chief complaint: WEAKNESS, STROKE LIKE SYMPTOMS, LEFT LEG WEAKNESS Narrative: Patient was seen and evaluated in the emergency room 2 days ago with history of TIAs, at this time having left-sided weakness again, left hand and leg, missed Silvino presented to the emergency room with weakness may be slightly worse but also significant hypertension, mild headache leading to hypertensive urgency When I saw patient up on the medical surgical floor asked truly resting fairly comfortably in bed, does describe mild headache and the left-sided weakness, no other complaints Opioid HPI Opioid Management Most Recent Pain and Opioid Data: Last Pain Scale 3 07/24/24 09:03 07/24/24 Last Pain Assessment 07/24/24 09:03 Last MAR Pain Assessment 07/24/24 06:33 Last ORT Total Score 8 07/23/24 23:05 07/23/24 Last ORT Risk Category High Risk 07/23/24 23:05 07/23/24 Ur Phencyclidine Scrn Negative (NEGATIVE) 07/23/24 19:50 07/03 06/28 Review of Systems ROS Status of ROS 10 or more systems reviewed and unremark able except as noted in history and below [facility] Medical History (Updated 07/25/24 @ 13:48 by Mac De La Torre MD) Peripheral arterial disease ?I73.9 - Peripheral vascular disease, unspecified (ICD-10) Bilateral carotid artery stenosis ?I65.23 - Occlusion and stenosis of bilateral carotid arteries (ICD-10) Benign essential hypertension ?I10 - Essential (primary) hypertension (ICD-10) COPD (chronic obstructive pulmonary disease) ?J44.9 - Chronic obstructive pulmonary disease, unspecified (ICD-10) Chemotherapy-induced neuropathy ?G62.0 - Drug-induced polyneuropathy (ICD-10) ?T45.1X5A - Adverse effect of antineoplastic and immunosuppressive drugs, initial encounter (ICD-10) Acute exacerbation of chronic obstructive pulmonary disease ?J44.1 - Chronic obstructive pulmonary disease with (acute) exacerbation (ICD-10) Pneumonia ?J18.9 - Pneumonia, unspecified organism (ICD-10) Contusion of multiple sites ?T07.XXXA - Unspecified multiple injuries, initial encounter (ICD-10) History of hypertension ?Z86.79 - Personal history of other diseases of the circulatory system (ICD- 10) History of throat cancer ?Z85.819 - Personal history of malignant neoplasm of unspecified site of lip, oral cavity, and pharynx (ICD-10) Hx of supraventricular tachycardia ?Z86.79 - Personal history of other diseases of the circulatory system (ICD- 10) History of emphysema ?J43.9 - Emphysema, unspecified (ICD-10) History of arthritis ?Z87.39 - Personal history of other diseases of the musculoskeletal system and connective tissue (ICD-10) Hx of TIA (transient ischemic attack) and stroke ?Z86.73 - Personal history of transient ischemic attack (TIA), and cerebral infarction without residual deficits (ICD-10) History of COPD ?Z87.09 - Personal history of other diseases of the respiratory system (ICD- 10) Surgical History Hx of cholecystectomy ?Z90.49 - Acquired absence of other specified parts of digestive tract (ICD- 10) 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 - Acquired absence of spleen (ICD-10) Hx of hernia repair ?Z98.890 - Other specified postprocedural states (ICD-10) ?Z87.19 - Personal history of other diseases of the digestive system (ICD-10) Social History (Updated 07/23/24 @ 23:38 by Magalys Meeks RN) Within the past year, how often did you have a drink containing alcohol: 4 or more times a week Within the past year, how many standard drinks containing alcohol did you have on a typical day: 10 or more Within the past year, how often did you have six or more drinks on one occasion: daily or almost daily Total score: 12 Score interpretation: A score of 4 or more indicates drinking is likely to affect patient's safety. Smoking status: Heavy tobacco smoker Do you want help with school or training: No Little interest or pleasure in doing things: not at all Feeling down, depressed, or hopeless: not at all Meds Home Medications and Allergies Home Medications ?Medication ?Instructions ?Recorded ?Confirmed ?Type omeprazole 40 mg capsule,delayed 40 mg PO DAILY 10/14/22 07/25/24 History release oxycodone-acetaminophen 10 mg-325 1 tab PO Q6H PRN pain 10/14/22 07/25/24 History mg tablet zolpidem 10 mg tablet 10 mg PO DAILY PRN insomnia 10/14/22 07/25/24 History aspirin 81 mg tablet,delayed 81 mg PO DAILY 07/23/24 07/25/24 History release (Adult Low Dose Aspirin) fluticasone furoate 100 1 inh inhalation Q24H 07/23/24 07/25/24 History mcg-vilanterol 25 mcg/dose inhalation powder (Breo Ellipta) megestrol 400 mg/10 mL (40 mg/mL) 800 mg PO DAILY 07/23/24 07/25/24 History oral suspension atorvastatin 20 mg tablet 20 mg PO DAILY 07/25/24 07/25/24 History topiramate 100 mg tablet (Topamax) 100 mg PO DAILY 07/25/24 07/25/24 History Allergies Allergy/AdvReac Type Severity Reaction Status Date / Time No Known Drug Allergies Allergy Verified 05/31/24 08:54 Exam Constitutional Vital Signs, click to edit/add: Last Vital Signs Temp 97.6 F 07/25/24 13:26 Pulse 76 07/25/24 13:26 Resp 20 07/25/24 13:26 BP 190/111 H 07/25/24 13:26 Pulse Ox 97 07/25/24 13:26 O2 Del Method Room Air 07/25/24 13:26 Documenting provider has reviewed patient's vital signs: yes Common normals: no apparent distress HENCT Common normals: normocephalic Chest Common normals: inspection of chest normal Respiratory Common normals: normal respiratory effort and clear to auscultation bilaterally Auscultation: diminished lung sounds Cardio Common normals: regular rate, regular rhythm and no murmurs GI Common normals: Normal to inspection, nondistended, normoactive bowel sounds present, soft to palpation and non-tender Extremity Common normals: normal to inspection and no clubbing, cyanosis or edema Neuro Other: Weakness 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, also difficulty raising left leg compared to th e right, Results Labs Labs: Short CBC 07/25/24 Range/Units 11:35 WBC 5.1 (4.0-11.0) 10^3/uL Hgb 13.6 L (14.0-18.0) g/dL Hct 40.1 L (42.0-54.0) % Plt Count 291 (150-450) 10^3/uL BMP 07/25/24 11:35 Sodium 135 L Potassium 4.4 Chloride 99 Carbon Dioxide 25.1 BUN 13.0 Creatinine 0.94 Glucose 110 H Calcium 9.6 Assessment and Plan Assessment and Plan (1) Acute left-sided muscle weakness: (2) Cerebrovascular disease: (3) Bilateral carotid artery stenosis: (4) Benign essential hypertension: (5) COPD (chronic obstructive pulmonary disease): (6) Chemotherapy-induced neuropathy: (7) History of hypertension: (8) Hx of TIA (transient ischemic attack) and stroke: (9) Hypertensive urgency: (10) Macrocytic anemia: (11) Hyponatremia: (12) Hypomagnesemia: Plan Admission findings: Sinus tachycardia, respiratory distress, severely elevated high blood pressure with resultant headache and left-sided weakness consistent with hypertensive urgency, the weakness has been more protracted so not acute Hypertensive [id number] his home medications, add lisinopril and as needed hydralazine, need to be slow with decreasing his high blood pressure secondary to the left-sided weakness likely related to his CVA [place] CVA left-sided weakness-MRI scan today, carotid Dopplers and echocardiogram, start patient on Plavix in addition to his aspirin Macrocytic anemia-workup as an outpatient Hyponatremia-repeat labs in a.m. Hypomagnesemia as an outpatient-repeat lab COPD secondary to smoking-as needed albuterol treatments and home inhalers Insomnia-continue with home medications Lumbar radiculopathy continue with home medications Moderate protein calorie malnutrition secondary to poor p.o. intake-continue with Megace Hypercholesterolemia continue with home medications-last LDL at the level of 38 Admission status: Patient with hypertensive urgency, medically necessary treatment will span 2 midnights. Inpatient status
--- NOTE | 2024-07-25 13:35 | CA_ITS ---
Patient Name: LAEJO FLOYD MR#: [id number] : 1960 Exam Date: 07/25/2024 Ordering Doctor: DR HERNAN UMANA . ECHOCARDIOGRAM REPORT PROCEDURE: CA ECHO DOPPLER COMPLETE INDICATIONS: DyspneaCOPD, h/o throat cancer - chemotherapy, hypertension, h/o TIA and CVA COMPARISON: None. DESCRIPTION: COMPLETE ECHOCARDIOGRAM Real-time transthoracic echocardiography with 2D, M-mode, spectral and color flow Doppler performed. QUALITY: Technical quality was good. LEFT VENTRICLE: Normal chamber size. Mild concentric left ventricular hypertrophy. Systolic function is at the lower limits of normal. LV EF: Lower limits of normal left ventricular ejection fraction, (50-55%). DIASTOLIC: Diastolic function is indeterminate. ATRIAL SEPTUM: Visually appears intact. LEFT ATRIUM: Normal chamber size. RIGHT ATRIUM: Normal chamber size. RIGHT VENTRICLE: Normal chamber size. Normal right ventricular systolic function. TRICUSPID VALVE: Normal mobility and thickness. No stenosis with no regurgitation. Unable to assess right-sided pressures due to lack of measurable tricuspid regurgitation. MITRAL VALVE: Normal mobility and thickness. No evidence of mitral valve stenosis. There is no mitral annular calcification. Trivial mitral regurgitation. AORTIC VALVE: Normal trileaflet appearance. No visible sclerosis. Normal leaflet mobility. No evidence of aortic valve stenosis. No aortic regurgitation. AORTIC ROOT: Normal diameter and appearance. PULMONIC VALVE: Normal thickness and mobility. No stenosis. No regurgitation. PERICARDIUM: No evidence of pericardial effusion. IVC: IVC is normal in size, does not collapse. PLEURA: CONCLUSION: 1. Mild concentric left ventricular hypertrophy with low normal systolic function. LVEF is estimated at 50 to 55%. 2. Normal right ventricular size and systolic function. 3. No significant valvular dysfunction. 4. Unable to assess right-sided pressures due to lack of measurable tricuspid regurgitation. 5. No pericardial effusion. Adult Echocardiography Procedure Report Left Ventricle LVEDD (3.7 - 5.6 cm): 4.13 cm LVESD (2.2 - 4.0 cm): 2.66 cm LVIVS thickness (0.6 - 1.2 cm): 1.24 cm LVPW thickness (0.5 - 1.0 cm): 1.30 cm e': 0.06 m/s E - e': 6.85 LVOT Max Gradient: 2.46 mm[Hg] LVOT Area (cm2): 0.78 m/s Peak Velocity (LVOT): 0.78 m/s Mean Velocity (LVOT): 0.52 m/s LVOT Diameter 2.48 cm Left Atrium LA Volume Index (2D A2C): 31.41 ml/m2 Left Atrium Systolic Dimension: 3.46 cm Mitral Valve MV E to A Ratio: 0.55 Mitral Valve A-Wave Peak Velocity: 0.77 m/s Mitral Valve E-Wave Peak Velocity: 0.42 m/s Right Ventricle Aorta AO Root Diam: 3.37 cm Aortic Valve AoV Area (Peak Jose C): 4.14 cm2, 4.14 cm2 AoV Area (VTI): 4.11 cm2, 4.11 cm2 Peak Velocity(Antegrade Flow): 0.92 m/s Peak Gradient(Antegrade Flow): 3.36 mm[Hg] Mean Velocity(Antegrade Flow): 0.55 m/s Mean Gradient(Antegrade Flow): 1.42 mm[Hg] Velocity Time Integral: 18.03 cm Tricuspid Valve Pulmonic Valve Peak Velocity: 0.98 m/s Peak Gradient: 3.86 mm[Hg] Right Atrium Right Atrium Systolic Pressure: 34.09 ml, 34.09 ml Dictated by: Martin Brizuela M.D. on 07/25/2024 at 19:08 Approved by: Martin Brizuela M.D. on 07/25/2024 at 19:11
[2024-07-25 13:50] LABS: Magnesium 1.7 mg/dL (1.8-2.4)
--- NOTE | 2024-07-25 15:45 | PC.NURSE ---
tele stroke consult called and initiated. Awaiting call back
[2024-07-25] MEDS: LISINOPRIL 10 MG TABLET PO (15:51)
[2024-07-25] MEDS: DULOXETINE HCL 60 MG CAPSULE.DR PO (15:51)
[2024-07-25] MEDS: METOPROLOL SUCCINATE 50 MG TAB.ER.24H PO (15:51)
[2024-07-25] MEDS: CLOPIDOGREL BISULFATE 75 MG TABLET PO (15:51)
[2024-07-25] MEDS: OXYCODONE HCL/ACETAMINOPHEN 5MG/325MG 2 TAB PO ×2 (16:01→22:08)
--- NOTE | 2024-07-25 16:44 | PC.NURSE ---
isabel aware of MRI and Carotid US reports
[2024-07-25] MEDS: ALBUTEROL SULFATE 2.5 MG/3 ML VIAL NEB IH ×2 (17:19→22:45)
[2024-07-25] MEDS: ZOLPIDEM TARTRATE 10 MG TABLET PO (22:08)
[2024-07-25] MEDS: ATORVASTATIN CALCIUM 20 MG TABLET PO (22:08)
[2024-07-25] MEDS: BUDESONIDE 0.5 MG/2 ML AMPULE NEB IH (22:45)
[2024-07-26] VITALS (12 sets, daily range): BP systolic 95–155; BP diastolic 55–71; PULSE 68–95; TEMP 36.3–37.2; O2SAT 91–99; BMI 18.1
[2024-07-26] MEDS: OXYCODONE HCL/ACETAMINOPHEN 5MG/325MG 2 TAB PO ×2 (04:25→10:52)
[2024-07-26] MEDS: ALBUTEROL SULFATE 2.5 MG/3 ML VIAL NEB IH ×2 (05:04→11:05)
[2024-07-26] MEDS: PANTOPRAZOLE SODIUM 40 MG TABLET.DR PO (05:50)
[2024-07-26 05:52] LABS: Basophils Absolute Auto 0.1 10^3/uL (0.0-0.1); Basophils Percent Auto 0.9 % (0.2-2.0); Eosinophils Absolute Auto 0.1 10^3/uL (0.0-0.7); Hematocrit 36.9 % (42.0-54.0); Hemoglobin 12.4 g/dL (14.0-18.0); Immature Granulocytes Abs Auto 0.02 10^3/uL (0.00-0.03); Immature Granulocytes Pct Auto 0.3 % (0.0-0.5); Lymphocytes Absolute Auto 1.2 10^3/uL (1.2-3.8); Mean Corpuscular HGB Conc 33.6 g/dL (29.9-35.2); Mean Corpuscular Hemoglobin 34.1 pg (25.9-34.0); Mean Corpuscular Volume 101.4 fL (80.0-94.0); Mean Platelet Volume 9.2 fL (9.5-13.5); Monocytes Absolute Auto 0.7 10^3/uL (0.3-0.8); Monocytes Percent Auto 11.5 % (1.7-12.0); Neutrophils Absolute Auto 3.8 10^3/uL (1.4-6.5); Neutrophils Percent Auto 65.3 % (43.0-75.0); Platelet Count 273 10^3/uL (150-450); Red Blood Count 3.64 10^6/uL (4.70-6.10); Red Cell Distribution Width 13.5 % (11.0-15.0); White Blood Count 5.8 10^3/uL (4.0-11.0)
[2024-07-26 06:14] LABS: Anion Gap 15.3; BUN Creatinine Ratio 21.1; Calcium 9.3 mg/dL (8.5-10.1); Carbon Dioxide 21.1 mmol/L (21.0-32.0); Chloride 104 mmol/L (98-107); Estimated GFR (African America >60 (>=60 mL/min/1.73m^2); Estimated GFR (Non-African Ame >60 (>=60 mL/min/1.73m^2); Glucose 101 mg/dL (74-106); Magnesium 1.8 mg/dL (1.8-2.4); Potassium 4.4 mmol/L (3.5-5.1); Sodium 136 mmol/L (136-145)
--- NOTE | 2024-07-26 08:41 | CM.NOTE ---
Important Message From Medicare discussed with pt, pt verbalizes understanding and signs paper. Original given to pt and copy placed in pt's chart. Discussed with pt recommendations from PT for skilled therapy at discharge, pt refuses skilled at this time but is open to HH at discharge. Pt does not have a preference to which HH company.
[2024-07-26] MEDS: TOPIRAMATE 100 MG TABLET PO (08:55)
[2024-07-26] MEDS: METOPROLOL SUCCINATE 50 MG TAB.ER.24H PO (08:55)
[2024-07-26] MEDS: CLOPIDOGREL BISULFATE 75 MG TABLET PO (08:55)
[2024-07-26] MEDS: ASPIRIN 81 MG TABLET.DR PO (08:55)
[2024-07-26] MEDS: DULOXETINE HCL 60 MG CAPSULE.DR PO (08:55)
[2024-07-26] MEDS: MEGESTROL ACETATE 400 MG/10 ML ORAL.SUSP 800 MG PO (08:56)
[2024-07-26] MEDS: LISINOPRIL 10 MG TABLET PO (08:56)
--- NOTE | 2024-07-26 09:48 | PT.DAILY ---
Physical Therapy Daily Note PT Daily Note/Assess Start: 07/26/24 09:42 Freq: Status: Active Protocol: Document 07/26/24 09:15 MARGI (Rec: 07/26/24 09:48 MARGI [id number]) Physical Therapy Daily Note/Assessment Time In/Time Out Time In 09:14 Time Out 09:22 Subjective Subjective Patient reports feeling good with no complaints this date. Therapeutic Activity Time Therapeutic Activity 8 Minutes (minutes) Therapeutic Activity 1 Units Therapeutic Activity Treatment Bed Mobility Ability Independent Chair Transfer Independent Ability Therapeutic Activity Patient ambulated 84 feet with RW CGA. Comments Total Physical Therapy Time Total Therapy 8 Minutes Total Physical 1 Therapy Units Summary Daily Note Summary Patient demonstrated improved ambulation with increase in distance this date to 84 feet with RW. Patient in bathroom with OT post treatment.
--- NOTE | 2024-07-26 10:11 | SWNOTE1 ---
KIKO called [facility] to make sure pt was not current with them, at this time he is not, it ended in June. [facility] to see if pt wants [facility] again.
--- NOTE | 2024-07-26 10:40 | SWNOTE1 ---
SW received a message from case management and pt would like [facility] services.
--- NOTE | 2024-07-26 10:48 | SWNOTE1 ---
[facility] faxed demographic sheet, ED note, H&P, and PT/OT/ST to [facility] .
[2024-07-26] MEDS: BUDESONIDE 0.5 MG/2 ML AMPULE NEB IH (11:04)
--- NOTE | 2024-07-26 11:47 | CM.NOTE ---
Rounds made with Dr. Paredes, teleneuro consulting with pt at this time. Dr. Paredes spoke with [facility] stroke team for further recommendations. Pt will discharge to home today and f/u with PCP and [facility] neurology.
--- NOTE | 2024-07-26 12:13 | P.DS_ITS ---
DS: Providers Provider Date of admission: 07/25/24 13:05 Primary care physician: Gildardo Paredes MD Consults: 07/25/24 Consult to Dietitian Routine Reason for consultation: weight loss 07/25/24 13:33 Consult to Pharmacy Routine Consulting Provider: Reason for consultation: Please Alborn me when Med Rec is Updated Has provider been notified: No Consult to Telestroke Routine Reason for consultation: Left sided weakness - eval over weekend Occupational Therapy Eval and Treat Routine Reason for consultation: Only if needed for Rehab Has provider been notified: No Physical Therapy Eval and Treat Routine Reason for consultation: Eval and Treat Has provider been notified: No 07/25/24 13:35 Speech Therapy Eval and Treat Routine Reason for consultation: Eval and treat Has provider been notified: No DS: Diagnosis Discharge Diagnosis (1) Acute ischemic right BONY stroke: (2) Acute left-sided muscle weakness: (3) Hypertensive urgency: (4) Cerebrovascular disease: (5) Occlusion of left internal carotid artery: (6) Fall: (7) Benign essential hypertension: (8) Peripheral arterial disease: (9) COPD (chronic obstructive pulmonary disease): (10) Chemotherapy-induced neuropathy: DS: Summary Hospital Course Hospital Course: Reason for admission: See ER note and H&P for details. 63 y/o male to ER with left sided weakness. C/o weakness off and on for 2-3 weeks and starting to have falls. History of CVA in past and reports not always taking aspirin daily. Admitted 07/23-07/24 but left AMA once found out not able to get MRI on weekend. Symptoms persisted and returned to ER. Admitted for treatment. Hospital course: MRI showed acute CVA in right BONY territory. Tele-stroke consulted and added plavix. Resumed home medication. CTA head and neck showed occlusion left ICA. Echo normal. Started PT/OT. Neurology felt stroke related to steal phenomenon from left ICA occlusion and right supplying blood flow. Patient stable in hospital. Discharged home and will continue aspirin and statin. Add plavix x 3 months. Will arrange for home health and home PT. Follow up with neurology as outpatient. Patient already established with vascular surgery. Time Spent with Patient Time attestation: Total time spent providing and/or coordinating discharge services: Time spent: greater than 30 minutes Exam Constitutional Vital Signs, click to edit/add: Last Vital Signs Temp 97.3 F L 07/26/24 07:43 Pulse 68 07/26/24 11:06 Resp 18 07/26/24 08:58 BP 155/71 H 07/26/24 07:43 Pulse Ox 99 07/26/24 11:06 O2 Del Method Room Air 07/26/24 11:06 Documenting provider has reviewed patient's vital signs: yes Common normals: no apparent distress, oriented x3 and alert HENMT Common normals: normocephalic Eye Common normals: PERRL and EOMs intact bilaterally Respiratory Common normals: normal respiratory effort and clear to auscultation bilaterally Cardio Common normals: regular rate, regular rhythm, no gallops, no murmurs and no rub GI Common normals: Normal to inspection, nondistended, normoactive bowel sounds present and non-tender Extremity Common normals: no pedal edema DS: Data Data Completed and Pending Labs on day of discharge: Labs from last 24 hours 07/26/24 07/25/24 05:23 11:35 WBC 5.8 RBC 3.64 L Hgb 12.4 L Hct 36.9 L MCV 101.4 H MCH 34.1 H MCHC 33.6 RDW 13.5 Plt Count 273 MPV 9.2 L Neut % (Auto) 65.3 Lymph % (Auto) 21.0 [place] % (Auto) 11.5 Eos % (Auto) 1.0 Baso % (Auto) 0.9 Neut # (Auto) 3.8 Lymph # (Auto) 1.2 [place] # (Auto) 0.7 Eos # (Auto) 0.1 Baso # (Auto) 0.1 Abs Immat Gran (auto) 0.02 Imm/Tot Granulo (auto) 0.3 Sodium 136 Potassium 4.4 Chloride 104 Carbon Dioxide 21.1 Anion Gap 15.3 BUN 20.0 H Creatinine 0.95 Est GFR ( Amer) >60 Est GFR (Non-Af Amer) >60 BUN/Creatinine Ratio 21.1 Glucose 101 Calcium 9.3 Magnesium 1.8 1.7 L Discharge Plan Discharge Disposition: Home Health Service Condition: Good Discharge Medications: New clopidogrel 75 mg Tablet 75 mg PO QD Qty: 30 2RF Continued omeprazole 40 mg capsule,delayed release(DR/EC) 40 mg PO DAILY oxycodone-acetaminophen 10-325 mg tablet 1 tab PO Q6H PRN (Reason: pain) zolpidem 10 mg tablet 10 mg PO DAILY PRN (Reason: insomnia) atorvastatin 20 mg tablet 20 mg PO DAILY topiramate [Topamax] 100 mg tablet 100 mg PO DAILY megestrol 400 mg/10 mL (40 mg/mL) suspension 800 mg PO DAILY fluticasone furoate-vilanterol [Breo Ellipta] 100-25 mcg/dose blister with device 1 inh INHALATION Q24H aspirin [Adult Low Dose Aspirin] 81 mg tablet,delayed release (DR/EC) 81 mg PO DAILY Activity: resume usual activities as tolerated Diet: advance to your usual diet Print Language: Chinese Forms: Portal Instructions Follow Up Appointments: August 03 @ 10am with Sonia Zarate NP (Dr. Paredes's office) [phone] [facility] [place] [id number] [address] [phone]
--- NOTE | 2024-07-26 12:54 | SWNOTE1 ---
[facility] is able to accept. SW faxed teleneuro consult, CRF, dc med rec, and dc summary to [facility]. Pt is discharging today.
== END 2024-07-26 13:08 | disposition home health service (06) | DRG 65 ==
LOC: ER 12:45 → MS 15:30
PROVIDERS: Family Medicine; Admitting Provider Family Medicine; Emergency Provider Student in an Organized Health Care Education/Training Program; PCP Family Medicine; Visit Provider Family Medicine
DX: I63.521 Cerebral infarction due to unspecified occlusion or stenosis of right anterior cerebral artery (principal); E44.0 Moderate protein-calorie malnutrition; E87.1 Hypo-osmolality and hyponatremia; G81.94 Hemiplegia, unspecified affecting left nondominant side; Z68.1 Body mass index [BMI] 19.9 or less, adult; I65.22 Occlusion and stenosis of left carotid artery; I16.0 Hypertensive urgency; T39.016A Underdosing of aspirin, initial encounter; J43.9 Emphysema, unspecified; I10 Essential (primary) hypertension; I73.9 Peripheral vascular disease, unspecified; E83.42 Hypomagnesemia; R29.705 NIHSS score 5; G62.0 Drug-induced polyneuropathy; T45.1X5S Adverse effect of antineoplastic and immunosuppressive drugs, sequela; F17.210 Nicotine dependence, cigarettes, uncomplicated; D53.9 Nutritional anemia, unspecified; G47.00 Insomnia, unspecified; M54.16 Radiculopathy, lumbar region; E78.00 Pure hypercholesterolemia, unspecified; Z85.21 Personal history of malignant neoplasm of larynx; Z79.899 Other long term (current) drug therapy; Z91.81 History of falling; Z79.02 Long term (current) use of antithrombotics/antiplatelets; Z92.3 Personal history of irradiation; Z79.51 Long term (current) use of inhaled steroids; Z95.820 Peripheral vascular angioplasty status with implants and grafts; Z90.81 Acquired absence of spleen; M62.81 Muscle weakness (generalized); Z53.29 Procedure and treatment not carried out because of patient's decision for other reasons; R07.89 Other chest pain; M79.672 Pain in left foot; Z90.49 Acquired absence of other specified parts of digestive tract
CPT/HCPCS: 36415; 70450; 70496; 70498; 70551; 71101; 73610; 73630; 80048; 80053; 80061; 80307; 80320; 81001; 81003; 83036; 83605; 83735; 84443; 84484; 85025; 85027; 85610; 87804; 87811; 92610; 93005; 93306; 93880; 94640; 94761; 97161; 97165; 97530; 99285; 99406; G0378; Q9967

== ENCOUNTER 2024-08-30 14:55 | Inpatient (IN) | payer MEDICARE, SELFPAY ==
[2024-08-30] VITALS (11 sets, daily range): BP systolic 108–140; BP diastolic 62–72; PULSE 84–108; TEMP 36.3–36.8; O2SAT 87–100; BMI 19.4; BMI 18.2
--- NOTE | 2024-08-30 15:03 | ECG_ITS ---
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 Measurements Intervals [place] Rate: 108 P: 76 MD: 122 QRS: 81 QRSD: 82 T: 84 QT: 332 QTc: 395 Interpretive Statements 1120 Sinus tachycardia 1470 with occasional supraventricular premature complexes 9140 abnormal rhythm ECG Compared to ECG 07/25/2024 11:48:07 No significant changes Electronically Signed On 08-30-2024 18:44:32 EDT by MELANI DE LEÓN M.D.
--- NOTE | 2024-08-30 15:04 | PC.NURSE ---
Pulse Ox. 88% on room air, oxygen applied at 2 LPM/NC and pulse Ox. up to 93%.
[2024-08-30 15:18] LABS: Basophils Absolute Auto 0.1 10^3/uL (0.0-0.1); Basophils Percent Auto 0.4 % (0.2-2.0); Eosinophils Percent Auto 0.1 % (0.9-7.0); Hematocrit 35.6 % (42.0-54.0); Hemoglobin 12.2 g/dL (14.0-18.0); Immature Granulocytes Abs Auto 0.05 10^3/uL (0.00-0.03); Immature Granulocytes Pct Auto 0.4 % (0.0-0.5); Lymphocytes Absolute Auto 0.6 10^3/uL (1.2-3.8); Lymphocytes Percent Auto 4.3 % (20.5-60.0); Mean Corpuscular HGB Conc 34.3 g/dL (29.9-35.2); Mean Corpuscular Hemoglobin 35.3 pg (25.9-34.0); Mean Corpuscular Volume 102.9 fL (80.0-94.0); Mean Platelet Volume 8.9 fL (9.5-13.5); Monocytes Absolute Auto 1.4 10^3/uL (0.3-0.8); Monocytes Percent Auto 9.9 % (1.7-12.0); Neutrophils Absolute Auto 11.8 10^3/uL (1.4-6.5); Neutrophils Percent Auto 84.9 % (43.0-75.0); Platelet Count 307 10^3/uL (150-450); Red Blood Count 3.46 10^6/uL (4.70-6.10); White Blood Count 13.9 10^3/uL (4.0-11.0)
[2024-08-30 15:32] LABS: Alanine Aminotransferase 18 U/L (16-63); Albumin Globulin Ratio 0.9; Albumin Level 3.3 g/dL (3.4-5.0); Alkaline Phosphatase 81 U/L (46-116); Anion Gap 11.8; Aspartate Amino Transferase 14 U/L (15-37); Calcium 9.1 mg/dL (8.5-10.1); Chloride 98 mmol/L (98-107); Estimated GFR (African America >60 (>=60 mL/min/1.73m^2); Estimated GFR (Non-African Ame >60 (>=60 mL/min/1.73m^2); Globulin 3.7 g/dL; Glucose 124 mg/dL (74-106); Potassium 3.8 mmol/L (3.5-5.1); Sodium 135 mmol/L (136-145)
[2024-08-30 15:34] LABS: INR 1.16; Prothrombin Time 12.1 sec (9.0-11.6); Troponin I High Sensitivity 7.5 pg/mL (4.0-76.1)
[2024-08-30 16:10] LABS: Lactate/Lactic Acid 1.3 mmol/L (0.4-2.0)
--- NOTE | 2024-08-30 16:10 | ED.SOB1 ---
HPI - SOB/Dyspnea General Chief Complaint: Shortness of Breath/Dyspnea Stated Complaint: SHORT OF BREATHX 24 HRS Time Seen by Provider: 08/30/24 15:03 Source: patient Mode of arrival: ambulance History of Present Illness HPI Narrative: The patient is coming to the ER after he was evaluated with the home health care's nurse, the patient was complaining of shortness of breath since yesterday, he does not usually use oxygen at the baseline and was saturating 88% on room air upon arrival the patient also has been increasing his cough for the last 24 hours with more production of phlegm Related Data Home Medications ?Medication ?Instructions ?Recorded ?Confirmed omeprazole 40 mg capsule,delayed 40 mg PO DAILY 10/14/22 08/30/24 release oxycodone-acetaminophen 10 mg-325 1 tab PO Q6H PRN pain 10/14/22 08/30/24 mg tablet zolpidem 10 mg tablet 10 mg PO DAILY PRN insomnia 10/14/22 08/30/24 aspirin 81 mg tablet,delayed 81 mg PO DAILY 07/23/24 08/30/24 release (Adult Low Dose Aspirin) fluticasone furoate 100 1 inh inhalation Q24H 07/23/24 08/30/24 mcg-vilanterol 25 mcg/dose inhalation powder (Breo Ellipta) megestrol 400 mg/10 mL (40 mg/mL) 800 mg PO DAILY 07/23/24 08/30/24 oral suspension atorvastatin 20 mg tablet 20 mg PO DAILY 07/25/24 08/30/24 topiramate 100 mg tablet (Topamax) 100 mg PO DAILY 07/25/24 08/30/24 Previous Rx's ?Medication ?Instructions ?Recorded clopidogrel 75 mg tablet 75 mg PO QD #30 tabs 07/26/24 Allergies Allergy/AdvReac Type Severity Reaction Status Date / Time No Known Drug Allergies Allergy Verified 08/30/24 14:57 Review of Systems ROS Status of ROS 10 or more systems reviewed and unremarkable except as noted in history and below [facility] Medical History (Updated 08/30/24 @ 16:15 by Jacqueline Jj MD) Acute ischemic right BONY stroke ?I63.521 - Cerebral infarction due to unspecified occlusion or stenosis of right anterior cerebral artery (ICD-10) Peripheral arterial disease ?I73.9 - Peripheral vascular disease, unspecified (ICD-10) Cerebrovascular disease ?I67.9 - Cerebrovascular disease, unspecified (ICD-10) Occlusion of left internal carotid artery ?I65.22 - Occlusion and stenosis of left carotid artery (ICD-10) Benign essential hypertension ?I10 - Essential (primary) hypertension (ICD-10) COPD (chronic obstructive pulmonary disease) ?J44.9 - Chronic obstructive pulmonary disease, unspecified (ICD-10) Chemotherapy-induced neuropathy ?G62.0 - Drug-induced polyneuropathy (ICD-10) ?T45.1X5A - Adverse effect of antineoplastic and immunosuppressive drugs, initial encounter (ICD-10) Macrocytic anemia ?D53.9 - Nutritional anemia, unspecified (ICD-10) Hyponatremia ?E87.1 - Hypo-osmolality and hyponatremia (ICD-10) Hypomagnesemia ?E83.42 - Hypomagnesemia (ICD-10) Bilateral carotid artery stenosis ?I65.23 - Occlusion and stenosis of bilateral carotid arteries (ICD-10) Acute exacerbation of chronic obstructive pulmonary disease ?J44.1 - Chronic obstructive pulmonary disease with (acute) exacerbation (ICD-10) Pneumonia ?J18.9 - Pneumonia, unspecified organism (ICD-10) Contusion of multiple sites ?T07.XXXA - Unspecified multiple injuries, initial encounter (ICD-10) History of hypertension ?Z86.79 - Personal history of other diseases of the circulatory system (ICD-10) History of throat cancer ?Z85.819 - Personal history of malignant neoplasm of unspecified site of lip, oral cavity, and pharynx (ICD-10) Hx of supraventricular tachycardia ?Z86.79 - Personal history of other diseases of the circulatory system (ICD-10) History of emphysema ?J43.9 - Emphysema, unspecified (ICD-10) History of arthritis ?Z87.39 - Personal history of other diseases of the musculoskeletal system and connective tissue (ICD-10) Hx of TIA (transient ischemic attack) and stroke ?Z86.73 - Personal history of transient ischemic attack (TIA), and cerebral infarction without residual deficits (ICD-10) History of COPD ?Z87.09 - Personal history of other diseases of the respiratory system (ICD-10) Surgical History Hx of cholecystectomy ?Z90.49 - Acquired absence of other specified parts of digestive tract (ICD-10) 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 - Acquired absence of spleen (ICD-10) Hx of hernia repair ?Z98.890 - Other specified postprocedural states (ICD-10) ?Z87.19 - Personal history of other diseases of the digestive system (ICD-10) Social History (Updated 07/23/24 @ 23:38 by Magalys Meeks RN) Within the past year, how often did you have a drink containing alcohol: 4 or more times a week Within the past year, how many standard drinks containing alcohol did you have on a typical day: 10 or more Within the past year, how often did you have six or more drinks on one occasion: daily or almost daily Total score: 12 Score interpretation: A score of 4 or more indicates drinking is likely to affect patient's safety. Smoking status: Heavy tobacco smoker Highest level of school completed/degree received: some college, no degree Do you want help with school or training: No Little interest or pleasure in doing things: not at all Feeling down, depressed, or hopeless: not at all Exam Narrative Exam Narrative: Nurses notes and vital signs reviewed and patient is not hypoxic. General: Well-appearing and in no apparent distress. Skin: Warm, dry, no pallor noted. No rash. Head: Normocephalic, atraumatic. Neck: Supple, non-tender. There is scarring previous surgery no acute pathology detected Eye: Pupils are equal, round and EOMI. No scleral icterus. Ears, Nose, Mouth, and Throat: TM are clear, no nasal mucosal hypertrophy. Oral mucosa is moist, no posterior oropharynx erythema, uvula is mid-line and no compromise of the airway Cardiovascular: Regular Rate and Rhythm without murmur, gallop or rub. Respiratory: Distant breathing sound bilaterally with rhonchi heard in the bases Back: No midline thoracic or lumbar vertebral tenderness. No CVA tenderness Musculoskeletal: normal ROM, no calf or popliteal tenderness, no lower extremity edema/swelling GI: Abdomen is soft, non-distended. Normal bowel sounds. No masses appreciated. No tenderness to palpation. No rebound, guarding, or rigidity noted. Neurological: A&O x4. No cranial nerve dysfunction observed. No truncal ataxia. Moves all extremities. Sensation intact. Psychiatric: Cooperative and interactive. Normal mood and affect. Constitutional Vital Signs, click to edit/add: Last Vital Signs Temp 97.9 F 08/30/24 15:01 Pulse 108 H 08/30/24 15:01 Resp 20 08/30/24 15:01 BP 140/72 08/30/24 15:01 Pulse Ox 88 L 08/30/24 15:01 O2 Del Method Room Air 08/30/24 15:01 Course Vital Signs Vital signs: Vital Signs Temperature 97.9 F 08/30/24 15:01 Pulse Rate 108 H 08/30/24 15:01 Respiratory Rate 20 08/30/24 15:01 Blood Pressure 140/72 08/30/24 15:01 Pulse Oximetry 88 L 08/30/24 15:01 Oxygen Delivery Method Room Air 08/30/24 15:01 Temperature 97.9 F 08/30/24 15:01 Pulse Rate 108 H 08/30/24 15:01 Respiratory Rate 20 08/30/24 15:01 Blood Pressure 140/72 08/30/24 15:01 Pulse Oximetry 88 L 08/30/24 15:01 Oxygen Delivery Method Room Air 08/30/24 15:01 MDM - SOB/Dyspnea MDM Narrative Medical decision making narrative: The patient upon arrival with a history of COPD there is a high suspicion of COPD exacerbation and pneumonia that is developing over the last 24 hours The patient EKG in the ER was showing sinus tachycardia with a heart rate of [address] elevation or depression The patient chest x-ray shows right lung infiltrate and pneumonia The patient CBC shows leukocytosis and the chemistry was within normal with a negative troponin Lactic acid pending and the blood culture obtained The patient right now on 2 L nasal cannula saturating 94% The patient will be admitted for further evaluation management of COPD exacerbation and pneumonia Patient started on DuoNeb as well as Solu-Medrol IV and IV Levaquin The patient case was discussed with and he agreed on admitting the patient Lab Data Labs: Lab Results 08/30/24 Range/Units 15:09 WBC 13.9 H (4.0-11.0) 10^3/uL RBC 3.46 L (4.70-6.10) 10^6/uL Hgb 12.2 L (14.0-18.0) g/dL Hct 35.6 L (42.0-54.0) % MCV 102.9 H (80.0-94.0) fL MCH 35.3 H (25.9-34.0) pg MCHC 34.3 (29.9-35.2) g/dL RDW 14.0 (11.0-15.0) % Plt Count 307 (150-450) 10^3/uL MPV 8.9 L (9.5-13.5) fL Neut % (Auto) 84.9 H (43.0-75.0) % Lymph % (Auto) 4.3 L (20.5-60.0) % Shelby % (Auto) 9.9 (1.7-12.0) % Eos % (Auto) 0.1 L (0.9-7.0) % Baso % (Auto) 0.4 (0.2-2.0) % Neut # (Auto) 11.8 H (1.4-6.5) 10^3/uL Lymph # (Auto) 0.6 L (1.2-3.8) 10^3/uL Shelby # (Auto) 1.4 H (0.3-0.8) 10^3/uL Eos # (Auto) 0.0 (0.0-0.7) 10^3/uL Baso # (Auto) 0.1 (0.0-0.1) 10^3/uL Abs Immat Gran (auto) 0.05 H (0.00-0.03) 10^3/uL Imm/Tot Granulo (auto) 0.4 (0.0-0.5) % PT 12.1 H (9.0-11.6) sec INR 1.16 Sodium 135 L (136-145) mmol/L Potassium 3.8 (3.5-5.1) mmol/L Chloride 98 (98-107) mmol/L Carbon Dioxide 29.0 (21.0-32.0) mmol/L Anion Gap 11.8 BUN 18.0 (7.0-18.0) mg/dL Creatinine 1.00 (0.70-1.30) mg/dL Est GFR ( Amer) >60 (>=60 mL/min/1.73m^2) Est GFR (Non-Af Amer) >60 (>=60 mL/min/1.73m^2) BUN/Creatinine Ratio 18.0 Glucose 124 H (74-106) mg/dL Lactate 1.3 (0.4-2.0) mmol/L Calcium 9.1 (8.5-10.1) mg/dL Total Bilirubin 1.0 (0.2-1.0) mg/dL AST 14 L (15-37) U/L ALT 18 (16-63) U/L Alkaline Phosphatase 81 (46-116) U/L Troponin I High Sens 7.5 (4.0-76.1) pg/mL Total Protein 7.0 (6.4-8.2) g/dL Albumin 3.3 L (3.4-5.0) g/dL Globulin 3.7 g/dL Albumin/Globulin Ratio 0.9 Discharge Plan Discharge Chief Complaint: Shortness of Breath/Dyspnea Clinical Impression: Hypoxemia, Pneumonia, Asthma exacerbation in COPD Patient Disposition: Admitted As Inpatient Time of Disposition Decision: 16:15
[2024-08-30] MEDS: LEVOFLOXACIN IN DEXTROSE 5 % 750 MG/150 ML PREMIX 100 MG IV (16:15)
[2024-08-30] MEDS: METHYLPREDNISOLONE SOD SUCC PF 125 MG/2 ML VIAL IVP (16:15)
[2024-08-30] MEDS: IPRATROPIUM/ALBUTEROL SULFATE 3 ML AMPUL.NEB IH ×2 (16:26→22:31)
[2024-08-30] MEDS: OXYCODONE HCL/ACETAMINOPHEN 5MG/325MG 1 TAB PO (18:23)
--- NOTE | 2024-08-30 20:29 | PC.NURSE ---
iv restart times 3 attempt without success. Once to left wrist and 2 to left forearm. All 3 with #22 guage catheters. Left wrist and 1st forearm iv blew with attempt 3rd attempt was painful.
[2024-08-30] MEDS: ENOXAPARIN SODIUM 40 MG/0.4 ML SYRINGE SUBQ (21:39)
[2024-08-30] MEDS: METHYLPREDNISOLONE SOD SUCC PF 125 MG/2 ML VIAL 60 MG IVP (21:40)
[2024-08-30] MEDS: BUDESONIDE 0.5 MG/2 ML AMPULE NEB IH (22:31)
[2024-08-30] MEDS: OXYCODONE HCL/ACETAMINOPHEN 5MG/325MG 2 TAB PO (23:19)
[2024-08-31] VITALS (10 sets, daily range): BP systolic 122–153; BP diastolic 63–75; PULSE 86–110; TEMP 36.3–36.6; O2SAT 91–96
[2024-08-31] MEDS: IPRATROPIUM/ALBUTEROL SULFATE 3 ML AMPUL.NEB IH ×6 (03:55→23:06)
[2024-08-31] MEDS: METHYLPREDNISOLONE SOD SUCC PF 125 MG/2 ML VIAL 60 MG IVP ×4 (04:09→21:14)
[2024-08-31] MEDS: OXYCODONE HCL/ACETAMINOPHEN 5MG/325MG 2 TAB PO ×3 (05:43→17:30)
[2024-08-31] MEDS: PANTOPRAZOLE SODIUM 40 MG TABLET.DR PO (05:43)
[2024-08-31 06:52] LABS: Hemoglobin 11.5 g/dL (14.0-18.0); Mean Corpuscular HGB Conc 33.8 g/dL (29.9-35.2); Mean Corpuscular Hemoglobin 34.8 pg (25.9-34.0); Mean Platelet Volume 9.3 fL (9.5-13.5); Platelet Count 316 10^3/uL (150-450); Red Cell Distribution Width 13.8 % (11.0-15.0); White Blood Count 10.6 10^3/uL (4.0-11.0)
[2024-08-31 07:10] LABS: Alanine Aminotransferase 11 U/L (16-63); Albumin Globulin Ratio 0.9; Albumin Level 3.1 g/dL (3.4-5.0); Alkaline Phosphatase 70 U/L (46-116); Anion Gap 16.6; Aspartate Amino Transferase 16 U/L (15-37); Bilirubin Total 0.7 mg/dL (0.2-1.0); Calcium 9.2 mg/dL (8.5-10.1); Carbon Dioxide 25.3 mmol/L (21.0-32.0); Chloride 99 mmol/L (98-107); Estimated GFR (African America >60 (>=60 mL/min/1.73m^2); Estimated GFR (Non-African Ame >60 (>=60 mL/min/1.73m^2); Globulin 3.6 g/dL; Glucose 189 mg/dL (74-106); Potassium 3.9 mmol/L (3.5-5.1); Sodium 137 mmol/L (136-145); Total Protein 6.7 g/dL (6.4-8.2)
[2024-08-31 07:20] LABS: Anisocytosis 1+
[2024-08-31 07:46] LABS: Segmented Neut Absolute Manual 9.54 10^3/uL (1.4-6.5)
[2024-08-31 07:47] LABS: Band Neutrophils Absolute 0.2 10^3/uL (0.0-0.3); Lymphocytes Absolute Manual 0.74 10^3/uL (1.20-3.80)
[2024-08-31] MEDS: ATORVASTATIN CALCIUM 20 MG TABLET PO (09:18)
[2024-08-31] MEDS: CLOPIDOGREL BISULFATE 75 MG TABLET PO (09:18)
[2024-08-31] MEDS: ASPIRIN 81 MG TABLET.DR PO (09:18)
[2024-08-31] MEDS: TOPIRAMATE 100 MG TABLET PO (09:18)
[2024-08-31] MEDS: MEGESTROL ACETATE 400 MG/10 ML ORAL.SUSP 800 MG PO (09:19)
[2024-08-31 10:20] LABS: A. calcoaceticus-baumannii Cpx NOT DETECTED (NOT DETECTE); Bacteroides fragilis NOT DETECTED (NOT DETECTE); Candida albicans NOT DETECTED (NOT DETECTE); Candida auris NOT DETECTED (NOT DETECTE); Candida glabrata NOT DETECTED (NOT DETECTE); Candida krusei NOT DETECTED (NOT DETECTE); Candida parapsilosis NOT DETECTED (NOT DETECTE); Candida tropicalis NOT DETECTED (NOT DETECTE); Cryptococcus neoformans/gattii NOT DETECTED (NOT DETECTE); Enterobacter cloacae complex NOT DETECTED (NOT DETECTE); Enterobacterales NOT DETECTED (NOT DETECTE); Enterococcus faecalis NOT DETECTED (NOT DETECTE); Enterococcus faecium NOT DETECTED (NOT DETECTE); Haemophilus influenzae NOT DETECTED (NOT DETECTE); Klebsiella aerogenes NOT DETECTED (NOT DETECTE); Klebsiella pneumoniae group NOT DETECTED (NOT DETECTE); Listeria monocytogenes NOT DETECTED (NOT DETECTE); Neisseria meningitidis NOT DETECTED (NOT DETECTE); Proteus spp. NOT DETECTED (NOT DETECTE); Pseudomonas aeruginosa NOT DETECTED (NOT DETECTE); Salmonella spp. NOT DETECTED (NOT DETECTE); Serratia marcescens NOT DETECTED (NOT DETECTE); Staphylococcus epidermidis NOT DETECTED (NOT DETECTE); Staphylococcus lugdunensis NOT DETECTED (NOT DETECTE); Staphylococcus spp. NOT DETECTED (NOT DETECTE); Stenotrophomonas maltophilia NOT DETECTED (NOT DETECTE); Streptococcus agalactiae NOT DETECTED (NOT DETECTE); Streptococcus pneumoniae NOT DETECTED (NOT DETECTE); Streptococcus pyogenes NOT DETECTED (NOT DETECTE); Streptococcus spp. NOT DETECTED (NOT DETECTE)
--- NOTE | 2024-08-31 10:53 | CM.NOTE ---
Rounds made with Dr. Paredes, pt continues to require oxygen and c/o increased work of breathing. No discharge today, Dr. Paredse will change pt to inpt status. Continue IV antibiotics, IV steroids and breathing tx.
[2024-08-31] MEDS: BUDESONIDE 0.5 MG/2 ML AMPULE NEB IH ×2 (11:15→23:06)
--- NOTE | 2024-08-31 11:57 | PM.HP ---
HPI H&P: HPI History of Present Illness Chief complaint: SHORT OF BREATHX 24 HRS, hypoxemia, pneumonia copd Narrative: 63 y/o male to ER with SOB. C/o SOB for several days. History of COPD and checked SpO2 and low. Frequent cough and sputum. Increased SOB and weakness and to ER. 88% on room air. WBC elevated and chest x-ray with pneumonia and admitted. Started levaquin for pneumonia. Started solu-medrol and duoneb for COPD. Continues to have SOB and appears SOB during conversation. Opioid HPI Opioid Management Most Recent Pain and Opioid Data: Last Pain Scale 7 Today, 11:52 Last Pain Assessment 08/30/24, 18:00 Last MAR Pain Assessment 08/30/24, 18:23 Last ORT Total Score 0 08/30/24, 17:23 Last ORT Risk Category Low Risk 08/30/24, 17:23 Ur Phencyclidine Scrn, (NEGATIVE) Negative 07/23/24, 19:50 Review of Systems ROS Constitutional Reports: fatigue; Denies: fever or chills Cardiovascular Denies: chest pain, palpitations or edema Respiratory Reports: shortness of breath, cough and wheezing Gastrointestinal Denies: abdominal pain, nausea, vomiting or diarrhea Genitourinary Denies: painful urination PFSH [facility] Medical History (Updated 08/31/24 @ 08:56 by Gildardo Paredes MD) Asthma exacerbation in COPD ?J44.1 - Chronic obstructive pulmonary disease with (acute) exacerbation (ICD-10) Hypoxemia ?R09.02 - Hypoxemia (ICD-10) Acute ischemic right BONY stroke ?I63.521 - Cerebral infarction due to unspecified occlusion or stenosis of right anterior cerebral artery (ICD-10) Peripheral arterial disease ?I73.9 - Peripheral vascular disease, unspecified (ICD-10) Occlusion of left internal carotid artery ?I65.22 - Occlusion and stenosis of left carotid artery (ICD-10) COPD (chronic obstructive pulmonary disease) ?J44.9 - Chronic obstructive pulmonary disease, unspecified (ICD-10) Chemotherapy-induced neuropathy ?G62.0 - Drug-induced polyneuropathy (ICD-10) ?T45.1X5A - Adverse effect of antineoplastic and immunosuppressive drugs, initial encounter (ICD-10) Macrocytic anemia ?D53.9 - Nutritional anemia, unspecified (ICD-10) Hyponatremia ?E87.1 - Hypo-osmolality and hyponatremia (ICD-10) Hypomagnesemia ?E83.42 - Hypomagnesemia (ICD-10) Bilateral carotid artery stenosis ?I65.23 - Occlusion and stenosis of bilateral carotid arteries (ICD-10) Pneumonia ?J18.9 - Pneumonia, unspecified organism (ICD-10) Contusion of multiple sites ?T07.XXXA - Unspecified multiple injuries, initial encounter (ICD-10) History of hypertension ?Z86.79 - Personal history of other diseases of the circulatory system (ICD-10) History of throat cancer ?Z85.819 - Personal history of malignant neoplasm of unspecified site of lip, oral cavity, and pharynx (ICD-10) Hx of supraventricular tachycardia ?Z86.79 - Personal history of other diseases of the circulatory system (ICD-10) History of emphysema ?J43.9 - Emphysema, unspecified (ICD-10) History of arthritis ?Z87.39 - Personal history of other diseases of the musculoskeletal system and connective tissue (ICD-10) Hx of TIA (transient ischemic attack) and stroke ?Z86.73 - Personal history of transient ischemic attack (TIA), and cerebral infarction without residual deficits (ICD-10) History of COPD ?Z87.09 - Personal history of other diseases of the respiratory system (ICD-10) Surgical History Hx of cholecystectomy ?Z90.49 - Acquired absence of other specified parts of digestive tract (ICD-10) 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 - Acquired absence of spleen (ICD-10) Hx of hernia repair ?Z98.890 - Other specified postprocedural states (ICD-10) ?Z87.19 - Personal history of other diseases of the digestive system (ICD-10) Social History (Updated 07/23/24 @ 23:38 by Magalys Meeks RN) Within the past year, how often did you have a drink containing alcohol: 4 or more times a week Within the past year, how many standard drinks containing alcohol did you have on a typical day: 10 or more Within the past year, how often did you have six or more drinks on one occasion: daily or almost daily Total score: 12 Score interpretation: A score of 4 or more indicates drinking is likely to affect patient's safety. Smoking status: Heavy tobacco smoker Highest level of school completed/degree received: some college, no degree Do you want help with school or training: No Little interest or pleasure in doing things: not at all Feeling down, depressed, or hopeless: not at all Meds Home Medications and Allergies Home Medications ?Medication ?Instructions ?Recorded ?Confirmed ?Type omeprazole 40 mg capsule,delayed 40 mg PO DAILY 10/14/22 08/30/24 History release oxycodone-acetaminophen 10 mg-325 1 tab PO Q6H PRN pain 10/14/22 08/30/24 History mg tablet zolpidem 10 mg tablet 10 mg PO DAILY PRN insomnia 10/14/22 08/30/24 History aspirin 81 mg tablet,delayed 81 mg PO DAILY 07/23/24 08/30/24 History release (Adult Low Dose Aspirin) fluticasone furoate 100 1 inh inhalation Q24H 07/23/24 08/30/24 History mcg-vilanterol 25 mcg/dose inhalation powder (Breo Ellipta) megestrol 400 mg/10 mL (40 mg/mL) 800 mg PO DAILY 07/23/24 08/30/24 History oral suspension atorvastatin 20 mg tablet 20 mg PO DAILY 07/25/24 08/30/24 History topiramate 100 mg tablet (Topamax) 100 mg PO DAILY 07/25/24 08/30/24 History clopidogrel 75 mg tablet 75 mg PO QD #30 tabs 07/26/24 08/30/24 Rx Allergies Allergy/AdvReac Type Severity Reaction Status Date / Time No Known Drug Allergies Allergy Verified 08/30/24 14:57 Exam Constitutional Vital Signs, click to edit/add: Last Vital Signs Temp 97.8 F 08/31/24 11:51 Pulse 102 H 08/31/24 11:51 Resp 20 08/31/24 11:51 BP 135/66 08/31/24 11:51 Pulse Ox 92 L 08/31/24 11:51 O2 Del Method Nasal Cannula 08/31/24 11:51 O2 Flow Rate 2 08/31/24 11:51 Documenting provider has reviewed patient's vital signs: yes Common normals: no apparent distress, oriented x3 and alert HENMT Common normals: normocephalic Eye Common normals: PERRL and EOMs intact bilaterally Respiratory Effort & inspection: tachypneic and labored Auscultation: diminished lung sounds Cardio Common normals: regular rate, regular rhythm, no gallops, no murmurs and no rub GI Common normals: Normal to inspection, nondistended, normoactive bowel sounds present and non-tender Extremity Common normals: no pedal edema Results Labs Labs: Short CBC 08/30/24 08/31/24 Range/Units 15:09 06:16 WBC 13.9 H 10.6 (4.0-11.0) 10^3/uL Hgb 12.2 L 11.5 L (14.0-18.0) g/dL Hct 35.6 L 34.0 L (42.0-54.0) % Plt Count 307 316 (150-450) 10^3/uL BMP 08/30/24 08/31/24 15:09 06:16 Sodium 135 L 137 Potassium 3.8 3.9 Chloride 98 99 Carbon Dioxide 29.0 25.3 BUN 18.0 21.0 H Creatinine 1.00 0.84 Glucose 124 H 189 H Calcium 9.1 9.2 Liver Function 08/30/24 08/31/24 Range/Units 15:09 06:16 Total Bilirubin 1.0 0.7 (0.2-1.0) mg/dL AST 14 L 16 (15-37) U/L ALT 18 11 L (16-63) U/L Alkaline Phosphatase 81 70 (46-116) U/L Albumin 3.3 L 3.1 L (3.4-5.0) g/dL Assessment and Plan Assessment and Plan (1) Pneumonia: (2) Acute exacerbation of chronic obstructive pulmonary disease: (3) Acute hypoxic respiratory failure: (4) Benign essential hypertension: (5) Cerebrovascular disease: Plan Continues to have SOB and labored breathing. Continue antibiotics, steroids, and breathing treatments. Wean O2 as tolerated. Resume home medication. Plan on at least a 2 midnight stay for inpatient medically necessary services.
[2024-08-31 12:57] LABS: Source Blood
--- NOTE | 2024-08-31 15:19 | SWNOTE1 ---
KIKO called [facility] and pt is still current with them, PT and care home.
--- NOTE | 2024-08-31 15:28 | SWNOTE1 ---
SW stopped in to see pt, but he was in the bathroom.
[2024-08-31] MEDS: LEVOFLOXACIN IN DEXTROSE 5 % 750 MG/150 ML PREMIX 100 MG IV (15:37)
[2024-08-31] MEDS: ZOLPIDEM TARTRATE 10 MG TABLET PO (21:17)
[2024-09-01] VITALS (9 sets, daily range): BP systolic 133–162; BP diastolic 51–74; PULSE 101–119; TEMP 36.5–36.9; O2SAT 80–96
[2024-09-01] MEDS: OXYCODONE HCL/ACETAMINOPHEN 5MG/325MG 2 TAB PO ×3 (00:55→14:24)
[2024-09-01] MEDS: IPRATROPIUM/ALBUTEROL SULFATE 3 ML AMPUL.NEB IH ×4 (03:42→15:57)
[2024-09-01] MEDS: METHYLPREDNISOLONE SOD SUCC PF 125 MG/2 ML VIAL 60 MG IVP ×2 (04:30→09:13)
[2024-09-01 05:38] LABS: Basophils Percent Auto 0.1 % (0.2-2.0); Hematocrit 32.8 % (42.0-54.0); Hemoglobin 11.2 g/dL (14.0-18.0); Immature Granulocytes Pct Auto 0.6 % (0.0-0.5); Lymphocytes Absolute Auto 0.4 10^3/uL (1.2-3.8); Mean Corpuscular HGB Conc 34.1 g/dL (29.9-35.2); Mean Corpuscular Hemoglobin 35.7 pg (25.9-34.0); Mean Corpuscular Volume 104.5 fL (80.0-94.0); Mean Platelet Volume 9.1 fL (9.5-13.5); Monocytes Absolute Auto 1.1 10^3/uL (0.3-0.8); Neutrophils Absolute Auto 16.3 10^3/uL (1.4-6.5); Neutrophils Percent Auto 91.3 % (43.0-75.0); Platelet Count 329 10^3/uL (150-450); Red Blood Count 3.14 10^6/uL (4.70-6.10); White Blood Count 17.8 10^3/uL (4.0-11.0)
[2024-09-01 05:58] LABS: Alanine Aminotransferase 16 U/L (16-63); Albumin Globulin Ratio 0.9; Albumin Level 3.2 g/dL (3.4-5.0); Alkaline Phosphatase 64 U/L (46-116); Anion Gap 14.1; Aspartate Amino Transferase 17 U/L (15-37); BUN Creatinine Ratio 21.2; Bilirubin Total 0.7 mg/dL (0.2-1.0); Calcium 9.3 mg/dL (8.5-10.1); Carbon Dioxide 25.6 mmol/L (21.0-32.0); Chloride 102 mmol/L (98-107); Estimated GFR (African America >60 (>=60 mL/min/1.73m^2); Estimated GFR (Non-African Ame >60 (>=60 mL/min/1.73m^2); Globulin 3.5 g/dL; Glucose 168 mg/dL (74-106); Potassium 3.7 mmol/L (3.5-5.1); Sodium 138 mmol/L (136-145); Total Protein 6.7 g/dL (6.4-8.2)
[2024-09-01] MEDS: PANTOPRAZOLE SODIUM 40 MG TABLET.DR PO (06:01)
[2024-09-01] MEDS: CLOPIDOGREL BISULFATE 75 MG TABLET PO (09:12)
[2024-09-01] MEDS: ATORVASTATIN CALCIUM 20 MG TABLET PO (09:12)
[2024-09-01] MEDS: TOPIRAMATE 100 MG TABLET PO (09:13)
[2024-09-01] MEDS: ASPIRIN 81 MG TABLET.DR PO (09:20)
[2024-09-01] MEDS: MEGESTROL ACETATE 400 MG/10 ML ORAL.SUSP 800 MG PO (09:20)
--- NOTE | 2024-09-01 10:32 | SWNOTE1 ---
Important Message from [employer] reviewed and discussed with patient. Pt. verbalized understanding and signed the form. Original given to patient and copy placed in patient?s chart.
--- NOTE | 2024-09-01 10:32 | SWNOTE1 ---
SW stopped in to speak with pt. Pt voiced he does still have [facility]. He voiced he is feeling better today, hopeful for discharge. SW asked if he has home oxygen, he stated he does not. SW advised pt that he may need it and if he is dc today, they will likely do a walk test. Pt voiced understanding. SW did ask how he was doing at home? He stated Selma (his sig. other) comes home today. He stated he is not sure he can care for her and Selma's sister does not understand that he is sick. SW asked why she did not stay senior living? Pt stated that her sister is worried about Selma losing her apt. Pt then stated he is thinking about moving down to [place] to be close to his family. He stated he has not been feeling well and he wants to be around people that can care for him. SW voiced understanding and encouraged pt to take care of himself. SW to stop back in home oxygen is needed.
[2024-09-01] MEDS: BUDESONIDE 0.5 MG/2 ML AMPULE NEB IH (10:54)
--- NOTE | 2024-09-01 11:35 | CM.NOTE ---
Rounds made with Dr. Paredes. Attempt to wean oxygen/walk test for home oxygen. Potential discharge today with oxygen. Mr. Cabrera verbalizes understanding.
--- NOTE | 2024-09-01 11:39 | PC.NURSE ---
walk test performed
--- NOTE | 2024-09-01 11:47 | PM.DS1 ---
DS: Providers Provider Date of admission: 08/31/24 11:11 Primary care physician: Gildardo Paredes MD Consults: 08/31/24 15:16 Physical Therapy Eval and Treat Routine Reason for consultation: Weakness DS: Diagnosis Discharge Diagnosis (1) Pneumonia: (2) Acute exacerbation of chronic obstructive pulmonary disease: (3) Acute hypoxic respiratory failure: (4) Benign essential hypertension: (5) Cerebrovascular disease: DS: Summary Hospital Course Hospital Course: Reason for admission: See H&P for details. 63 y/o male to ER with SOB. C/o SOB for several days. History of COPD and checked SpO2 and low. Frequent cough and sputum. Increased SOB and weakness and to ER. 88% on room air. WBC elevated and chest x-ray with pneumonia and admitted. Hospital course: Started levaquin for pneumonia. Started solu-medrol and duoneb for COPD. Resumed home medication. Continued to have SOB and appeared SOB during conversation. Gradually improved. Less SOB and mild cough. Remained on oxygen. Afebrile and normal WBC. Seen by PT and ambulated well. Much less SOB and ready for discharge. Performed a walk test and desaturated to 80% on room air. Discharged home in stable condition. Arranged for home oxygen with portability at 2 LPM. Complete prednisone and levaquin as directed. Resume home medication without change. Follow up in office in 1-2 weeks. Time Spent with Patient Time attestation: Total time spent providing and/or coordinating discharge services: Time spent: greater than 30 minutes Exam Constitutional Vital Signs, click to edit/add: Last Vital Signs Temp 98.1 F 09/01/24 07:18 Pulse 105 H 09/01/24 11:02 Resp 16 09/01/24 11:02 BP 150/74 H 09/01/24 07:18 Pulse Ox 94 L 09/01/24 11:02 O2 Del Method Nasal Cannula 09/01/24 11:02 O2 Flow Rate 2 09/01/24 11:02 Documenting provider has reviewed patient's vital signs: yes Common normals: no apparent distress, oriented x3 and alert HENMT Common normals: normocephalic Eye Common normals: PERRL and EOMs intact bilaterally Respiratory Common normals: normal respiratory effort and clear to auscultation bilaterally Cardio Common normals: regular rate, regular rhythm, no gallops, no murmurs and no rub GI Common normals: Normal to inspection, nondistended, normoactive bowel sounds present and no masses Extremity Common normals: no pedal edema DS: Data Data Completed and Pending Labs on day of discharge: Labs from last 24 hours 09/01/24 08/30/24 05:24 16:10 WBC 17.8 H RBC 3.14 L Hgb 11.2 L Hct 32.8 L MCV 104.5 H MCH 35.7 H MCHC 34.1 RDW 14.0 Plt Count 329 MPV 9.1 L Neut % (Auto) 91.3 H Lymph % (Auto) 2.0 L [place]ie[place] % (Auto) 6.0 Eos % (Auto) 0.0 L Baso % (Auto) 0.1 L Neut # (Auto) 16.3 H Lymph # (Auto) 0.4 L [place] # (Auto) 1.1 H Eos # (Auto) 0.0 Baso # (Auto) 0.0 Abs Immat Gran (auto) 0.10 H Imm/Tot Granulo (auto) 0.6 H Sodium 138 Potassium 3.7 Chloride 102 Carbon Dioxide 25.6 Anion Gap 14.1 BUN 22.0 H Creatinine 1.04 Est GFR ( Amer) >60 Est GFR (Non-Af Amer) >60 BUN/Creatinine Ratio 21.2 Glucose 168 H Calcium 9.3 Total Bilirubin 0.7 AST 17 ALT 16 Alkaline Phosphatase 64 Total Protein 6.7 Albumin 3.2 L Globulin 3.5 Albumin/Globulin Ratio 0.9 Specimen Source Blood A.calcoaceticus-baumannii cmplx PCR Not detected Bacteroides fragilis Not detected Adilene albicans (PCR) Not detected Adilene auris (PCR) Not detected C. glabrata (PCR) Not detected C. krusei (PCR) Not detected C. parapsilosis (PCR) Not detected C. tropicalis (PCR) Not detected C. neoform/gattii (PCR) Not detected Enterobacterales (PCR) Not detected E. cloacae complex PCR Not detected Enterococc faecalis PCR Not detected Enterococc faecium PCR Not detected E. coli (PCR) Not detected H. influenzae (PCR) Not detected Klebsiella aerogenes (PCR) Not detected Klebsiella oxytoca PCR Not detected K. pneumoniae group (PCR) Not detected List. monocytogenes PCR Not detected N. meningitidis (PCR) Not detected Proteus spp. (copies/mL) Not detected Salmonella spp. (PCR) Not detected Serratia marcescens PCR Not detected Staphylococcus sp PCR Not detected Staph aureus (PCR) Not detected mecA/C & MREJ Resist Gene Not applicable mecA/C-Methicil Resis Gene Not applicable mcr-1 Colistin Res Gene PCR Not applicable Staph epidermidis (PCR) Not detected Staph lugdunensis (TEM-PCR) Not detected S. maltophilia (PCR) Not detected Streptococcus sp PCR Not detected Strep agalactiae (PCR) Not detected Strep pneumoniae (PCR) Not detected S. pyogenes (PCR) Not detected P. aeruginosa (PCR) Not detected Deonna/B-Vanco Res Genes Not applicable blaIMP Car res Gene PCR Not applicable KPC (blaKPC) Detect PCR Not applicable NDM (blaNDM) Detect PCR Not applicable OXA-48 Carbapenem Resis Gene (PCR) Not applicable blaVIM Car Res Gene PCR Not applicable CTX-M ESBL (PCR) Not applicable Discharge Plan Discharge Disposition: Home Health Service Discharge Medications: New prednisone 10 mg tablets,dose pack See Rx Instructions .ROUTE .COMPLEX Qty: 39 0RF Rx Instructions: 10 mg orally ;6 PO daily x 3 days, then 4 PO daily x 3 days, then 2 PO daily x 3 days, then 1 PO daily x 3 days levofloxacin 750 mg tablet 750 mg PO DAILY 7 Days Qty: 7 0RF albuterol sulfate 90 mcg/actuation HFA aerosol inhaler 2 inh inhalation Q4H PRN (Reason: shortness of breath or wheezing) Qty: 8.5 0RF Continued omeprazole 40 mg capsule,delayed release(DR/EC) 40 mg PO DAILY oxycodone-acetaminophen 10-325 mg tablet 1 tab PO Q6H PRN (Reason: pain) zolpidem 10 mg tablet 10 mg PO DAILY PRN (Reason: insomnia) atorvastatin 20 mg tablet 20 mg PO DAILY topiramate [Topamax] 100 mg tablet 100 mg PO DAILY clopidogrel 75 mg Tablet 75 mg PO QD Qty: 30 2RF megestrol 400 mg/10 mL (40 mg/mL) suspension 800 mg PO DAILY fluticasone furoate-vilanterol [Breo Ellipta] 100-25 mcg/dose blister with device 1 inh INHALATION Q24H aspirin [Adult Low Dose Aspirin] 81 mg tablet,delayed release (DR/EC) 81 mg PO DAILY Activity: resume usual activities as tolerated Diet: advance to your usual diet Print Language: Cape Verdean Supervisor Rose Grading/Book Critic Instructions: Resume [facility]. Forms: Portal Instructions Follow Up Appointments: September 08 @ 11:45am with Dr. Paredes [phone]
--- NOTE | 2024-09-01 11:51 | SWNOTE1 ---
Pt does need home oxygen. SW spoke with pt and he informed SW that he changed to [employer] insurance today, but he does not have card. He called Marilyn, sister in law, and she is at the apartment and will call back with ID number. He would like to use [facility] if they are in network. SW to check.
--- NOTE | 2024-09-01 12:03 | SWNOTE1 ---
Case management able to look up pt on [employer] website and found Pt ID number. KIKO called [employer] and they do take [employer]. KIKO sent face sheet, script, dc summary with face to face, and walk test to [employer].
--- NOTE | 2024-09-01 12:04 | SWNOTE1 ---
KIKO faxed dc summary, dc med rec, and PT note to [facility] . KIKO let [facility] know that pt's insurance changed today.
--- NOTE | 2024-09-01 12:53 | SWNOTE1 ---
[employer] [facility] called and they need physician to sign walk test and also the nurse who performed test and how many liters he was on during exercise with oxygen. SW had nurse sign and put liter flow on. KIKO faxed to Dr. Paredes's office and secure text him as well to notify of walk test that needs signed.
--- NOTE | 2024-09-01 13:21 | SWNOTE1 ---
SW faxed updated walk test with nurse and physician signature on it with date to [facility] [employer].
--- NOTE | 2024-09-01 14:01 | SWNOTE1 ---
SW called [facility] [employer] and they have received updated walk test and she will sent to the person working on the case. KIKO did let her know that pt's ride will be here soon. She said they have to wait until approved before sending tank.
--- NOTE | 2024-09-01 16:15 | SWNOTE1 ---
Pt's oxygen arrived from [employer]. SW notified nurse. Pt is going home on 2 liters continuous from [employer].
--- NOTE | 2024-09-02 14:21 | CM.DCFOLLOWU ---
Person spoke with: Sepideh How are you feeling? Much better How is your pain? No pain Did you understand your discharge instructions? Yes Do you have any questions about your discharge instructions? No Were you given any prescriptions at discharge? Yes Were you able to get your prescriptions filled? Yes Do you understand how to take your medications as ordered? Yes, no questions Do you have any questions about your follow up appointment and do you plan to keep your follow up appointment? I have appointment scheduled and will go to appointment Is there anything else that you would like to discuss? No Questions/Comments/Concerns/Other:
== END 2024-09-01 16:37 | disposition home health service (06) | DRG 193 ==
LOC: ER 16:24 → MS 08-31 08:38
PROVIDERS: Admitting Provider Family Medicine; Emergency Provider Emergency Medicine; PCP Family Medicine; Visit Provider Family Medicine
DX: J18.9 Pneumonia, unspecified organism (principal); J96.01 Acute respiratory failure with hypoxia; J44.0 Chronic obstructive pulmonary disease with (acute) lower respiratory infection; J44.1 Chronic obstructive pulmonary disease with (acute) exacerbation; Z86.73 Personal history of transient ischemic attack (TIA), and cerebral infarction without residual deficits; I73.9 Peripheral vascular disease, unspecified; I65.23 Occlusion and stenosis of bilateral carotid arteries; Z87.01 Personal history of pneumonia (recurrent); Z85.819 Personal history of malignant neoplasm of unspecified site of lip, oral cavity, and pharynx; Z90.49 Acquired absence of other specified parts of digestive tract; Z90.81 Acquired absence of spleen; F17.200 Nicotine dependence, unspecified, uncomplicated; Z79.82 Long term (current) use of aspirin; Z79.899 Other long term (current) drug therapy; I67.9 Cerebrovascular disease, unspecified; Z99.81 Dependence on supplemental oxygen
CPT/HCPCS: 36415; 71045; 80053; 83605; 84484; 85007; 85025; 85027; 85610; 87040; 87150; 93005; 94640; 94667; 94668; 94761; 96365; 96366; 96372; 96375; 96376; 97161; 99285; 99406; G0378; J1650; J2919

== ENCOUNTER 2025-02-06 09:55 | Emergency (ER) | payer OTHER, SELFPAY ==
[2025-02-06 10:00] VITALS: BP 154/97; PULSE 91; TEMP 36.4; O2SAT 98; BMI 19.4
--- OUTSIDE RECORDS SUMMARY | 2025-02-06 10:11 | XMS_ITS | Encounter Summary ---
Author Organization [facility] [employer] Sys tem Address [facility] [id number] [address] [place] [address] Care Team Providers Care Striper Machine Name Role Phone Gildardo Paredes MD Primary Care Provider [phone] Encounter Details Date Type Department Care Team (Late st Contact Info) Description 08/16/2021 Orders Only [facility] [address] [place] [address] Ref Prov, [place] [address] Social History Tobacco Use Types Packs/Day Years Used Date Smoking Tobacco: Every Day Cigarettes Smokeless Tobacco: Never Comments:1 pack every 5 days reported 08/15/2021 Alcohol Use Standard Drinks/Week Comments Not Currently 0 (1 standard drink = 0.6 oz pur e alcohol) 01/19/18, sober as can be Childcare Answer Date Recorded Childcare Unknown 10/14/2018 Employment Answer Date Recorded Employment Unknown 10/14/2018 Purpose - Life Answer Date Recorded Purpose and direction in life Unknown Sex and Gender Information Value Date Recorded Sex Assigned at Not on file Legal Sex Male 9:50 AM EST Gender Identity Not on file Sexual Orientation Not on file COVID-19 Exposure Response Date Recorded In the last 10 days, have yo u been in contact with someone who was confirmed or suspected to have Coronavirus/COVID-19? No / Unsure 08/15/2021 10:23 AM EDT documented as of this encounter Plan of Treatment Not on file documented as of this encounter Procedures Procedure Name Priority Date/Time Associated Diagnosis Comments VASC ARTERIAL DOPPLER LOWER BILATERAL MULTI LEVEL/PVR Routine 08/08/2021 documented in this encounter Results * Vas art doppler lwr bilat mult lev/PVR (08/08/2021) Anatomical Region Laterality Modality Vascular Bilateral Ultrasound us Not In System Ref Prov CV VASCULAR ORDERABLES Fi nal Result documented in this encounter Visit Diagnoses Not on filedocumented in this encounter Care Teams Striper Machine Relationship Specialty Start Date End Date Gildardo Paredes MD PCP - General Family Medicine 03/17/18 documented as of this encounter
--- OUTSIDE RECORDS SUMMARY | 2025-02-06 10:11 | XMS_ITS | Encounter Summary ---
Author Organization [facility] Sys [facility] Address [facility] [id number] [address] [place] [address] Care Team Providers Care Store Hand Name Role Phone Gildardo Paredes MD Primary Care Provider [phone] Encounter Details Date Type Department Care Team (Late st Contact Info) Description 07/26/2024 Orders Only [facility] Storage [address] [place] [id number] Transcribe, Orders Support User Pain (Primary Dx) Social History Tobacco Use Types Packs/Day Years Used Date Smoking Tobacco: Every Day Cigarettes Smokeless Tobacco: Never Comments:1 pack every 5 days reported 08/15/2021 Alcohol Use Standard Drinks/Week Comments Not Currently 0 (1 standard drink = 0.6 oz pur e alcohol) 01/19/18, sober as can be Childcare Answer Date Recorded Childcare Unknown 10/14/2018 Employment Answer Date Recorded Employment Unknown 10/14/2018 Hunger Screening Answer Date Recorded Within the past 12 months we worried whether our food would run out before we got money to buy more. Never True 11/02/2023 Within the past 12 months th e food we bought just didn't last and we didn't have money to get more. Never True 11/02/2023 Purpose - Life Answer Date Recorded Purpose and direction in life Unknown Sex and Gender Information Value Date Recorded Sex Assigned at Not on file Legal Sex Male 9:50 AM EST Gender Identity Not on file Sexual Orientation Not on file documented as of this encounter Plan of Treatment Not on file documented as of this encounter Results * Vas carotid duplex bilateral (07/25/2024 3:10 PM EDT) us Scanning Provider External CV VASCULAR ORDERABLE S Final Result [facility]STREAMING * MR brain without contrast (07/25/2024 2:00 PM EDT) us Scanning Provider External IMG MRI ORDERABLES Fi nal Result * CT brain without contrast stroke alert (07/23/2024 6:40 PM EDT) us Scanning Provider External IMG CT ORDERABLES Fin al Result documented in this encounter Visit Diagnoses Diagnosis Pain- Primary Generalized pain documented in this encounter Care Teams Store Hand Relationship Specialty Start Date End Date Gildardo Paredes MD PCP - General Family Medicine 03/17/18 documented as of this encounter
--- OUTSIDE RECORDS SUMMARY | 2025-02-06 10:11 | XMS_ITS | Encounter Summary ---
Author Organization [facility] Sys [facility] Address [id number] [address] [place] [address] Care Team Providers Care Frozen Food Department Manager Name Role Phone Gildardo Paredes MD Primary Care Provider [phone] Reason for Visit * Reason Comments Med Refill Encounter Details Date Type Department Care Team (Late st Contact Info) Description 07/18/2020 Refill [facility] [address] Gabino Patricio DO [address] [place], [place] [id number] Social History Tobacco Use Types Packs/Day Years Used Date Smoking Tobacco: Every Day Cigarettes Smokeless Tobacco: Never Alcohol Use Standard Drinks/Week Comments Not Currently [...] on file documented as of this encounter Visit Diagnoses Not on filedocumented in this encounter Care Teams Frozen Food Department Manager Relationship Specialty Start Date End Date Gildardo Paredes MD PCP - General Family Medicine 03/17/18 documented as of this encounter
--- OUTSIDE RECORDS SUMMARY | 2025-02-06 10:11 | XMS_ITS | Encounter Summary ---
Author Organization [facility] Sys tem Address [facility] [id number] [address] [place] [address] Care Team Providers Care Data Security Consultant Name Role Phone Gildardo Paredes MD Primary Care Provider [phone] Encounter Details Date Type Department Care Team (Late st Contact Info) Description 11/27/2021 Orders Only [facility] [address] [place] [address] Ref Prov, [place] [address] Social History Tobacco Use Types Packs/Day Years [...] Name Priority Date/Time Associated Diagnosis Comments VASC AORTA/ILIAC DUPLEX COMPLETE Routine 11/27/2021 documented in this encounter Results * Vas aorta/iliac duplex complete (11/27/2021) Anatomical Region Laterality Modality Vascular N/A Ultrasound us Not In System Ref Prov CV VASCULAR ORDERABLES Fi nal Result documented in this encounter Visit Diagnoses Not on filedocumented in this encounter Care Teams Data Security Consultant Relationship Specialty Start Date End Date Gildardo Paredes MD PCP - General Family Medicine 03/17/18 documented as of this encounter
--- OUTSIDE RECORDS SUMMARY | 2025-02-06 10:11 | XMS_ITS | Clinical Summary ---
Author Organization [facility] Address [facility] [place] [address] Care Team Providers Care Structural Engineering Technician Name Role Phone Gildardo Paredes MD Primary Care Provider [phone] Nathaly Abernathy APRN.SIGN BUILDER Unavailable [phone] Kathrine Velasquez MD Unavailable [phone] Amira Powell Unavailable Unavailable Nato Hood Unavailable Unavailable Allergies No known active allergies Medications * This document contains information received from the source organization and may not represent a complete record from that organization. albuterol (PROVENTIL) 2.5 mg /3 mL (0.083 %) nebulizer solution 2.5 mg. 8 Active albuterol HFA (PROVENTIL HFA, VENTOLIN HFA) 90 mcg/actuation inhaler q 4 HR. Active ipratropium-alb uterol (DUONEB) 0.5 mg-3 mg(2.5 mg base)/3 mL nebu Inhale 3 mL as instructed as needed for wheezing/shortne ss of breath. 8 Active topiramate (TOPAMAX) 100 mg tablet Take 100 mg by mouth twice daily. 1 Active zolpidem (AMBIEN) 10 mg Take 10 mg by mouth at bedtime as needed. 9 Active oxyCODONE-aceta minophen (PERCOCET 10) 10-325 mg tablet Take 1 tablet by mouth four times daily as needed. 1 Active aspirin, enteric coated (ASPIRIN, ENTERIC COATED) 81 mg EC tablet Take 81 mg by mouth once daily. Active BREO ELLIPTA 100-25 mcg/dose inhaler INHALE 1 PUFF BY MOUTH ONCE DAILY 2 Active atorvastatin (LIPITOR) 20 mg tablet Take by mouth. 3 Active omeprazole (PRILOSEC) 40 mg capsule Take 40 mg by mouth twice daily. 3 Active metoprolol succinate ER (TOPROL XL) 50 mg 24 hr tablet Take 50 mg by mouth once daily. 3 Active megestrol (MEGACE) 400 mg/10 mL (40 mg/mL) suspension take 20 milliliters by mouth once daily 480 mL 1 5 Active clopidogrel (PLAVIX) 75 mg tablet Take 75 mg by mouth. 5 09/13/19 26 Active Active Problems Problem Noted Date Diagnosed Date Nausea 09/16/2021 Physical deconditioning 08/09/2021 Essential hypertension, benign 06/25/2021 Assessment & Plan (06/26/2021 11:51 AM EST): Assessment: on home meds PLAN: Resume home meds and monitor regularly while in house Assessment & Plan (06/25/2021 6:39 AM EST): Assessment: controlled on rx Last 14 BP Last 14 Encounter BP Readings: Date: BP: 06/11/2021 117/59 05/15/2021 133/59 04/11/2021 130/67 03/20/2021 114/59 01/31/2021 133/62 01/18/2021 137/64 12/06/2020 126/57 11/27/2020 126/70 11/08/2020 147/62 10/16/2020 127/70 10/16/2020 127/70 10/02/2020 121/66 09/25/2020 144/60 09/24/2020 140/60 Tachycardia 06/25/2021 Assessment & Plan (06/25/2021 6:40 AM EST): Assessment: controlled on rx PVD (peripheral vascular disease) 06/25/2021 Assessment & Plan (06/26/2021 11:49 AM EST): Assessment: hx LE stent, daily ASA therapy held for surgery PLAN: Will monitor with ICD in house and resume ASA postoperative Assessment & Plan (06/25/2021 6:40 AM EST): Assessment: hx LE stent, daily ASA therapy Peripheral neuropathy 06/25/2021 Assessment & Plan (06/25/2021 6:41 AM EST): Assessment: 2/2 chemo, no rx History of transient ischemic attack (TIA) 06/25 Assessment & Plan (06/25/2021 6:41 AM EST): Assessment: hx daily ASA therapy COPD (chronic obstructive pulmonary disease) Assessment & Plan (06/26/2021 11:45 AM EST): Assessment: controlled on prescriptions as needed, no CPAP PLAN: Order home meds in house Assessment & Plan (06/25/2021 6:42 AM EST): Assessment: controlled on rx and as needed Current smoker 06/25/2021 Assessment & Plan (06/26/2021 11:43 AM EST): Assessment: current home use PLAN: Cessation advised and f/u with pcp Assessment & Plan (06/25/2021 6:42 AM EST): Assessment: 1-2ppd/40 years GERD (gastroesophageal reflux disease) Assessment & Plan (06/25/2021 6:42 AM EST): Assessment: controlled on rx Prediabetes 06/25/2021 Assessment & Plan (06/25/2021 6:43 AM EST): Assessment: diet controlled Depression 06/25/2021 Assessment & Plan (06/25/2021 6:44 AM EST): Assessment: stable on rx Migraine 06/25/2021 Assessment & Plan (06/25/2021 6:44 AM EST): Assessment: controlled on rx and as needed Insomnia 06/25/2021 Assessment & Plan (06/25/2021 6:45 AM EST): Assessment: on rx Dysphagia 06/25/2021 Assessment & Plan (06/26/2021 3:17 PM EST): Assessment: POA, has to bring food back up at times PLAN: spoke to Speech plan MBS, was never done previously per patient Assessment & Plan (06/25/2021 6:46 AM EST): Assessment: swallowing medication Oropharnyx cancer 06/25/2021 Assessment & Plan (06/26/2021 11:42 AM EST): Assessment: s/p right radical neck dissection 06/25/21. Hx of right BOT scc, chemoradiation 7000cGy in [address] Velasquez completed 09/28/20. PET scan 12/25/20 showing right level II cervical node with repeat PET scan on 04/05/21 showing increase in size consistent with recurrence. FNA 05/15/21 - suspicion for SCC. PLAN: Incision and drain care, awaiting final pathology for further treatment plan Cancer of base of tongue 08/02/2020 Assessment & Plan (06/25/2021 6:47 AM EST): Assessment: s/p chemoradiation 09/2020, now with recurrence Severe protein-calorie malnutrition 08/01/2020 Encounters Date Type Department Care Team Description 12/20/2024 1:15 PM EDT Office Visit Radiation Oncology [address] [place] [address] [place] [address] Kathrine Velasquez MD Hypothyroidism due to acquired atrophy of thyroid (Primary Dx) 12/20/2024 Travel from Last 3 Months Immunizations Immunization Administration Dates Next Due COVID-19 original vaccine, a ge 12+ yr, monovalent (EXTRABANCA - PURPLE TOP) 12/20/2020,08/01/2020,07/11/2020 COVID-19 vaccine, unspecifie d formulation 12/20/2020,07/11/2020 Haemophilus influenzae b (Hi b PRP-T) vaccine, 4-dose series (ACTHIB, HIBERIX) 01/31/2018 influenza (IIV3) vaccine, tr ivalent (AFLURIA, FLULAVAL, FLUVIRIN, FLUZONE) 03/04/2020 influenza (IIV4) vaccine, ag e 6 mo - 64 yr, quadrivalent (AFLURIA, FLULAVAL, FLUZONE) 04/06/2017 influenza (IIV4) vaccine, ag e 6 mo - 64 yr, quadrivalent, PF (AFLURIA, FLUARIX, FLULAVAL, FLUZONE) 02/18/2022,03/08/2021,03/09/2020,02/04,01/27/2018 influenza (IIV4) vaccine, qu adrivalent (AFLURIA, FLULAVAL, FLUZONE) 04/06/2017 influenza (ccIIV4) vaccine, age 6+ mo, quadrivalent, PF (FLUCELVAX) 05/27/2023 meningococcal (MenACWY-CRM) vaccine, quadrivalent (MENVEO) 01/31/2018 meningococcal (MenACWY-D) va ccine, quadrivalent (MENACTRA) 01/31/2018 meningococcal B (MenB-4C) va ccine (BEXSERO) 01/31/2018 pneumococcal conjugate (PCV1 3) vaccine, 13 valent (PREVNAR 13) 01/31/2018 pneumococcal polysaccharide (PPV23) vaccine, 23 valent (PNEUMOVAX 23) 04/06/2017 respiratory syncytial virus (RSV) vaccine, adjuvanted (AREXVY) 07/22/2023 tetanus diphtheria pertussis (Tdap) vaccine, age 7+ yr (ADACEL, BOOSTRIX) 05/14/2018 zoster (RZV) vaccine, recomb inant (SHINGRIX) 07/22/2023,05/14/2018 Family History Medical History Relation Comments Breast Cancer Mother Relation Status Comments Mother Social History Tobacco Use Types Packs/Day Years Used Date Smoking Tobacco: Former Cigarettes 1 40 S tarted: 06/12/2024 Passive Smoke Exposure: Past Smokeless Tobacco: Never Tobacco Cessation:Counseling Given: Not Answered Comments:Quit 06/12/24 Alcohol Use Standard Drinks/Week Comments Yes 0 (1 standard drink = 0.6 oz pur e alcohol) not weekly PHQ-2 Answer Date Recorded PHQ-2 score 0 12/20/2024 Area Deprivation Index Answer Date Yovany rded National Score (1-100), lower number is lower ri sk 64 09/16/2022 State Score (1-10), lower number is lower risk 4 09/16/2022 Data from: https://www.neighborhoodatlas.medicine.[facility]/. Last address used for calculation [address] 09/16/2022 Sex and Gender Information Value Date Recorded Sex Assigned at Not on file Legal Sex Male 4:08 PM EDT Gender Identity Not on file Sexual Orientation Not on file Last Filed Vital Signs Vital Sign Reading Time Taken Comments Blood Pressure 151/70 12/20/2024 1:04 PM EDT Pulse 83 12/20/2024 1:04 PM EDT Temperature 37.2 C (98.9 F) 12/20/2024 1:04 PM EDT Respiratory Rate 20 12/20/2024 1:04 PM EDT Oxygen Saturation 99% 12/20/2024 1:0 4 PM EDT O2 at 3L/NC Inhaled Oxygen Concentration - - Weight 60.5 kg (133 lb 6.1 oz) 12/21/19 25 1:04 PM EDT Height 177.8 cm (5' 10 ) 06/10/2024 2:4 7 PM EST Body Mass Index 19.14 06/10/2024 2:47 PM EST Plan of Treatment Upcoming Encounters Date Type Department Care Team (Late st Contact Info) Description 06/20/2025 11:00 AM EST Office Visit [facility] [address] [place] [address] LAB 06/27/2025 1:45 PM EST Office Visit Radiation Oncology [address] [place] [address] Kathrine Velasquez MD [address] [place] [address] 6 month follow up Health Maintenance Due Date Last Done Comments Annual PCP Team Chronic Dise ase Visit 1978 Anxiety Screening 1978 HIV Screening 1978 Hepatitis C Screening 1978 CT Colonography 2005 Cologuard (FIT-DNA) 2005 Colonoscopy 2005 Colorectal Cancer Screening 2005 Fecal Occult Blood 2005 Prostate Cancer Screening Discussion 2005 Sigmoidoscopy 2005 Pneumococcal Vaccine: 50+ (3 of 3 - PCV20 or PCV21) 01/31/2023 01/31/2018, 04/06/2017 Medicare Advantage Annual We llness Visit 05/04/2024 Covid-19 Vaccine (8 - 2024-2 6 season) 2025 05/27/2023, 06/12/2022, 12/20/2020, Additional history exists Influenza Vaccine (#1) 2025 , 05/27/2023, 02/18/2022, Additional history exists Diabetes Screening 11/16/2027 11/15/2024, 0 12/15/2023, 08/18/2023, Additional history exists Lipid Screening 09/07/2028 09/08/2023 DTaP,Tdap,Td Vaccine (3 - Td or Tdap) 05/31/2034 05/31/2024, 05/14/2018 RSV Vaccine Completed 07/22/2023 Shingrix Vaccine Completed 07/22/2023, 05/14/2018 Procedures Procedure Name Priority Date/Time Associated Diagnosis Comments TSH W/REFLEX FT4 Routine 12/20/2024 1:25 PM EDT Hypothyroidism due to acquired atrophy of thyroid COMPREHENSIVE METABOLIC PANEL Routine 12/15/2023 8:57 AM EDT Cancer of base of tongue (HCC) Malaise and fatigue from Last 3 Months or Most Recently Relevant to Health Maintenance Results * TSH W/REFLEX FT4 (12/20/2024 1:25 PM EDT) TSH 2.120 0.270 - 4.200 mIU/L 12/21/2024 10:[address] [facility] Blood BLOOD SPECIMEN / Unknown Venipuncture / Unknown 12/20/2024 1:25 PM EDT 12/20/2024 1:32 PM EDT G Сергей Velasquez MD LABORATORY Final Resul t [facility] [address] [place] [address], [place] from Last 3 Months Insurance [facility] Care Teams Structural Engineering Technician Relationship Specialty Start Date End Date Gildardo Paredes MD [address] [facility] [place], [place] [id number] PCP - General Family Medicine 07/16/20 Nathaly Abernathy APRN.CNP [address] [address] [place] [address] Nurse Practitioner Hematology/Oncology 08/07/20 Kathrine Velasquez MD [address] [place] [address] Physician Radiation Oncology 08/07/20 Amira Powell LSW Housing Liaison 09/16/21 Nato Hood PA Family Medicine 05/24/24
--- OUTSIDE RECORDS SUMMARY | 2025-02-06 10:11 | XMS_ITS | Encounter Summary ---
Author Organization [facility] Address [id number] [address] [place] [address] Care Team Providers Care Hydrochloric Area Supervisor Name Role Phone Gildardo Paredes MD Primary Care Provider [phone] Encounter Details Date Type Department Care Team (Late st Contact Info) Description 08/15/2021 Orders Only [facility] [address] [place] [address] Arun Lorenz CMA Social History Tobacco Use Types Packs/Day Years [...] on filedocumented in this encounter Care Teams Hydrochloric Area Supervisor Relationship Specialty Start Date End Date Gildardo Paredes MD PCP - General Family Medicine 03/17/18 documented as of this encounter
--- OUTSIDE RECORDS SUMMARY | 2025-02-06 10:11 | XMS_ITS | Clinical Summary ---
Author Organization [facility] Address [address] [place] [address] Care Team Providers Care Biodiesel Product Manager Name Role Phone Gildardo Paredes MD Primary Care Provider [phone] Allergies No known active allergies Medications aspirin 81 mg EC tablet Take 81 mg by mouth in the morning. Active atorvastatin (Lipitor) 20 mg tablet Take 20 mg by mouth in the morning. Active metoprolol succinate XL (Toprol-XL) 25 mg 24 hr tablet Take 50 mg by mouth in the morning. Do not crush or chew. Active potassium chloride CR (Klor-Con M10) 10 mEq ER tablet Take 10 mEq by mouth in the morning. Do not crush or chew. Active oxyCODONE-aceta minophen (Percocet) 10-325 mg tablet Take 1 tablet by mouth every 6 (six) hours if needed for severe pain (8-10 pain score). Active clopidogrel (Plavix) 75 mg tablet Take 75 mg by mouth in the morning. Active fluticasone furoate-vilante roL (Breo Ellipta) 100-25 mcg/dose inhaler Inhale 1 puff in the morning. Active omeprazole (PriLOSEC) [address] capsule Take 40 mg by mouth before breakfast. Do not crush or chew. Active albuterol 2.5 mg /3 mL (0.083 %) nebulizer solution Take 2.5 mg by nebulization every 6 (six) hours if needed for wheezing. Active topiramate (Topamax) 100 mg tablet Take 100 mg by mouth two times daily. Active albuterol 90 mcg/actuation inhaler Inhale 2 puffs every 6 (six) hours if needed for wheezing. Active megestrol (Megace) 400 mg/10 mL (40 mg/mL) suspension Take 20 mL by mouth in the morning. Shake well just before you measure a dose. Measure with a special dose-measuring spoon or medicine cup, not with a regular table spoon. If you do not have a dose-measuring device, ask your pharmacist for one. Active Active Problems Problem Noted Date Diagnosed Date Carotid stenosis, right 11/18/2024 Symptomatic stenosis of right carotid artery 06/2024 PAD (peripheral artery disease) 11/02/2024 Carotid stenosis, bilateral 11/02/2024 Encounter for pre-operative examination 11/03/19 Encounters Date Type Department Care Team Description 12/08/2024 10:30 AM EDT Office Visit [facility] V[facility] and Endovascular Surgery [address] [place] [address] Bharati Chatman PA-C Carotid stenosis, bilateral (Primary Dx); PAD (peripheral artery disease) 11/21/2024 Orders Only [facility] Pre-Operation [address] [place] [address] Gildardo Irwin CNP Preop testing (Primary Dx) 11/18/2024 10:20 AM EDT - 11/18/2024 12:20 PM EDT Surgery [facility] Lab [address] [place] [address] Deep Mcfarland MD ARCH CEREBRAL CAROTID ANGIOGRAM [24680 (CPT )] 11/18/2024 8:23 AM EDT - 11/18/2024 3:00 PM EDT Hospital Encounter [facility] Main Operating Room [address] [place] [address] Deep Mcfarland MD Carotid stenosis, right (Primary Dx); Symptomatic stenosis of right carotid artery; PAD (peripheral artery disease); Carotid stenosis, bilateral; Encounter for pre-operative examination Discharge Disposition: Home or Self Care () 11/18/2024 Travel 11/18/2024 Orders Only [facility] and Endovascular Surgery [address] [place] [address] Mary Lou Smalls MA Symptomatic stenosis of right carotid artery (Primary Dx); Carotid stenosis, bilateral; PAD (peripheral artery disease) 11/17/2024 11:59 PM EDT Anesthesia Event [facility] [place] [phone] Be Marcial MD 11/17/2024 3:49 PM EDT - 11/17/2024 11:59 PM EDT Hospital Encounter [facility] Heart [facility] [address] [place] [phone] Hypertension, unspecified type Discharge Disposition: Home or Self Care (01) 11/17/2024 Orders Only [facility] [place] [phone] Mary Lou Smalls MA Symptomatic stenosis of right carotid artery (Primary Dx); Carotid stenosis, bilateral; PAD (peripheral artery disease) 11/17/2024 Telephone [facility] Vascular and Endovascular Surgery [address] [place] [address] Mary Lou Smalls MA cardiac clearance 11/16/2024 Orders Only [facility] [place] [address] Mirian Tee RN 11/15/2024 2:00 PM EDT Pre-Admission Testing [facility] Pre-Anesthesia [place] [phone] Hypertension, unspecified type (Primary Dx) 11/15/2024 1:40 PM EDT Lab [facility] Medical [facility] Draw Station [address] [place] [phone] Symptomatic stenosis of right carotid artery; PAD (peripheral artery disease); Carotid stenosis, bilateral; Encounter for pre-operative examination 11/15/2024 Travel from Last 3 Months Social History Tobacco Use Types Packs/Day Years Used Date Smoking Tobacco: Every Day Cigarettes Smokeless Tobacco: Never Tobacco Cessation:Ready to Q uit: No; Counseling Given: Yes Alcohol Use Standard Drinks/Week Comments Yes 0 (1 standard drink = 0.6 oz pur e alcohol) daily 3-4 per day PHQ-2 Answer Date Recorded Patient Health Questionnaire-2 Score 0 10/14/2023 [place] Safety & Environment Answer Date Rec orded Fear of Current or Ex-Partner Not on file Emotionally Abused Not on file 06/25/2023 Physically Abused Not on file 06/25/2023 Sexually Abused Not on file 06/25/2023 Physically or Sexually Abused Not on file Comments Unknown Sex and Gender Information Value Date Recorded Sex Assigned at Choose not to disclose 11/2024 10:13 AM EDT Legal Sex Male 12:15 AM EDT Gender Identity Choose not to disclose 10:13 AM EDT Sexual Orientation Choose not to disclose 2024 10:13 AM EDT Last Filed Vital Signs Vital Sign Reading Time Taken Comments Blood Pressure 186/91 12/08/2024 10:20 AM EDT Pulse 73 12/08/2024 10:20 AM EDT Temperature 36.7 C (98 F) 11/15/2024 2:28 PM EDT Respiratory Rate 19 12/08/2024 10:20 AM EDT Oxygen Saturation 89% 12/08/2024 10:20 AM EDT Inhaled Oxygen Concentration - - Weight 59.9 kg (132 lb) 12/08/2024 10:20 AM EDT Height 165.1 cm (5' 5 ) 12/08/2024 10:20 AM EDT Body Mass Index 21.97 12/08/2024 10:20 AM EDT Plan of Treatment Health Maintenance Due Date Last Done Comments CT Colonography 1960 Colonoscopy 1960 Colorectal Cancer Screening 1960 FIT-DNA 1960 FIT 1960 FOBT 1960 Medicare Annual Wellness (AWV) 1960 Sigmoidoscopy 1960 Depression Screening 1972 Pap Smear 1981 Cervical Cancer Screening 1990 HPV/Cotest 1990 Mammogram 2000 Meningococcal B Vaccine (2 of 5 - Increased Risk Bexsero 3-dose series) 02/28/2018 01/31/2018 Meningococcal Vaccine (2 - Risk 2-dose series) 03/28/2018 01/31/2018 Pneumococcal Vaccine: Pediatrics (0 to 5 Years) and At-Risk Patients (6 to 64 Years) (3 of 3 - PCV20 or PCV21) 04/06/2022 01/31/2018, 04/06/2017 COVID-19 Vaccine ( - season) 2025 05/27/2023, 06/12/2022, 12/20/2020, Additional history exists Influenza Vaccine (#1) 2025 , 02/29/2024, 05/27/2023, Additional history exists Adult Tetanus 05/31/2034 05/31/2024, 05/14/2018 HIB Vaccines Completed 01/31/2018 Zoster Vaccines Completed 07/22/2023, 05/14/2018 HPV Vaccines Aged Out No longer eligi ble based on patient's age to complete this topic IPV Vaccines Aged Out No longer eligi ble based on patient's age to complete this topic Rotavirus Vaccines Aged Out No longer eligible based on patient's age to complete this topic Procedures Procedure Name Priority Date/Time Associated Diagnosis Comments CAROTID ANGIOGRAM Routine 11/18/2024 10: 57 AM EDT Symptomatic stenosis of right carotid artery Carotid stenosis, bilateral PAD (peripheral artery disease) ECG 12-LEAD Routine 11/17/2024 3:50 PM EDT Hypertension, unspecified type APTT Routine 11/15/2024 1:49 PM EDT Symptomatic stenosis of right carotid artery PAD (peripheral artery disease) Carotid stenosis, bilateral Encounter for pre-operative examination PROTIME-INR Routine 11/15/2024 1:49 PM EDT Symptomatic stenosis of right carotid artery PAD (peripheral artery disease) Carotid stenosis, bilateral Encounter for pre-operative examination BASIC METABOLIC PANEL Routine 11/15/2024 1:49 PM EDT Symptomatic stenosis of right carotid artery PAD (peripheral artery disease) Carotid stenosis, bilateral Encounter for pre-operative examination CBC Routine 11/15/2024 1:49 PM EDT Symptomatic stenosis of right carotid artery PAD (peripheral artery disease) Carotid stenosis, bilateral Encounter for pre-operative examination MRSA/MSSA DNA NASAL Routine 11/15/2024 1 :49 PM EDT Symptomatic stenosis of right carotid artery PAD (peripheral artery disease) Carotid stenosis, bilateral Encounter for pre-operative examination from Last 3 Months Results * CAROTID ANGIOGRAM (11/18/2024 10:57 AM EDT) Anatomical Region Laterality Modality Other Narrative 11/18/2024 11:11 AM EDT This order was resulted via OpNote or Post Procedure Note. If those notes are not displayed in this report, please refer to the Notes tab. us Deep Mcfarland MD CV INVASIVE VASCULAR PROCEDURES Final Result * ECG 12 lead (11/17/2024 3:50 PM EDT) Ventricular Rate 87 BPM GE MUSE Atrial Rate 87 BPM GE MUSE IA Interval 122 ms GE MUSE QRS DURATION 84 ms GE MUSE QT Interval 362 ms GE MUSE QTC CALCULATION(BAZE TT) 435 ms GE MUSE P Murchison 75 degrees GE MUSE R-Murchison 70 degrees GE MUSE T Wave Murchison 74 degrees GE MUSE 11/15/2024 2:11 PM EDT 11/18/2024 8:37 AM EDT Impressions GE MUSE - 11/18/2024 8:37 AM EDT Normal sinus rhythm with sinus arrhythmia Possible Left atrial enlargement Borderline ECG No previous ECGs available Confirmed by Kal DALE SAMER J. ([id number]) on 11/18/2024 8:37:22 AM Narrative Procedure Note Moy Dale MD - 11/18/2024 IMPRESSION: Normal sinus rhythm with sinus arrhythmia Possible Left atrial enlargement Borderline ECG No previous ECGs available Confirmed by Kal DALE SAMER J. ([id number]) on 11/18/2024 8:37:22 AM us Gildardo Irwin PICKING MACHINE OPERATOR HELPER ECG ORDERABLES Final Result GE MUSE * MRSA/MSSA DNA Nasal (11/15/2024 1:49 PM EDT) MSSA DNA Negative Negative 11/16/2024 7:56 AM EDT [facility] ([facility]) MRSA DNA Negative Negative 11/16/2024 7:56 AM EDT [facility] ([facility]) Swab Nasal structure / Unknown Non-blood Collection / Unknown 11/15/2024 1:49 PM EDT 11/15/2024 2:12 PM EDT Narrative [facility] ([facility]) - 11/16/2024 7:56 AM EDT Testing methodology is an automated qualitative in vitro diagnostic test for the direct detection and differentiation of Staphylococcus aureus (SA) DNA and methicillin-resistant Staphylococcus aureus (MRSA) DNA from nasal swabs in patients at risk for nasal colonization. The test utilizes real-time polymerase chain reaction (PCR) for the amplification of MRSA/SA DNA and fluorogenic target-specific hybridization probes for the detection of the amplified DNA. A negative result does not preclude nasal colonization. Deep Mcfarland MD LAB MICROBIOLOGY - GENERAL ORDE RABLES Final Result Performing Organization Address City/[facility] Co de Phone Number [facility]) [address] [place] [address] * APTT (11/15/2024 1:49 PM EDT) Pathologist [facility] aPTT 30.4 25.0 - 35.0 Seconds 11/15/2024 2:35 PM EDT [facility] ([facility]) Comment:Clinical significanc e of the APTT is questionable in the presence of heparin. Blood Venous blood specimen / Unknown Venipuncture / Unknown 11/15/2024 1:49 PM EDT 11/15/2024 2:11 PM EDT Deep Mcfarland MD LAB BLOOD ORDERABLES Final Resu lt Performing Organization Address City/[facility]/ZIP Co de Phone Number [facility] [address] [place] [address] * (ABNORMAL) Protime-INR (11/15/2024 1:49 PM EDT) Pathologist [facility] Protime 14.4 12.3 - 14.8 Seconds 11/15/2024 2:35 PM EDT [facility] ([facility]) INR 1.11(H) 0.90 - 1.10 11/15/2024 2:35 PM EDT [facility] ([facility]) Comment: [facility] RECOMMENDED INR FOR WARFARIN THERAPY CONDITION INR PROPHYLAXIS OF VENOUS THROMBOSIS 2-3 (HIGH-RISK SURGERY) TREATMENT OF VENOUS THROMBOSIS 2-3 TREATMENT OF PULMONARY EMBOLISM 2-3 PREVENTION OF SYSTEMIC EMBOLISM: 2-3 ACUTE MYOCARDIAL INFARCTION TISSUE HEART VALVES VALVULAR HEART DISEASE ATRIAL FIBRILLATION RECURRENT SYSTEMIC EMBOLISM MECHANICAL HEART VALVE 2.5-3.5 FROM: ORAL ANTICOAGULANTS. MECHANISM OF ACTION, CLINICAL EFFECTIVENESS, AND OPTIMAL THERAPEUTIC RANGE. CHEST 1995;108:231S-246S. Blood Venous blood specimen / Unknown Venipuncture / Unknown 11/15/2024 1:49 PM EDT 11/15/2024 2:11 PM EDT us Deep Mcfarland MD LAB BLOOD ORDERABLES Final Resu lt [facility] ([facility]) [address] [place] [address] * (ABNORMAL) CBC (11/15/2024 1:49 PM EDT) [facility] WBC 5.77 4.00 - 10.60 10*3/uL 11/15/2024 2:31 PM EDT [facility] ([facility]) RBC 4.03(L) 4.20 - 5.70 10*6/uL 11/15/2024 2:31 PM EDT [facility] ([facility]) Hemoglobin 13.4 13.0 - 17.0 g/dL 11/15/2024 2:31 PM EDT [facility] ([facility]) Hematocrit 40.6 39.0 - 50.0 % 11/15/2024 2:31 PM EDT [facility] ([facility]) MCV 100.7(H) 82.0 - 98.0 fL 11/15/2024 2:31 PM EDT [facility] ([facility]) MCH 33.3(H) 27.0 - 33.0 pg 11/15/2024 2:31 PM EDT [facility] ([facility]) MCHC 33.0 32.0 - 35.0 g/dL 11/15/2024 2:31 PM EDT [facility] ([facility]) RDW 13.6 11.5 - 15.0 % 11/15/2024 2:31 PM EDT [facility] ([facility]) Platelets 345 150 - 400 10*3/uL 11/15/2024 2:31 PM EDT [facility] ([facility]) Blood Venous blood specimen / Unknown Venipuncture / Unknown 11/15/2024 1:49 PM EDT 11/15/2024 2:13 PM EDT us Deep Mcfarland MD LAB BLOOD ORDERABLES Final Resu lt [facility] ([facility]) [address] [place] [address] * (ABNORMAL) Basic metabolic panel (11/15/2024 1:49 PM EDT) Sodium 133(L) 136 - 145 mmol/L 11/15/2024 3:00 PM EDT [facility] ([facility]) Potassium 4.3 3.5 - 5.1 mmol/L 11/15/2024 3:00 PM EDT [facility] ([facility]) Chloride 97(L) 98 - 107 mmol/L 11/15/2024 3:00 PM EDT [facility] ([facility]) CO2 29 21 - 31 mmol/L 11/15/2024 3:00 PM EDT [facility] ([facility]) BUN 16 7 - 25 mg/dL 11/15/2024 3:00 PM EDT [facility] ([facility]) Creatinine 0.81 0.70 - 1.30 mg/dL 11/15/2024 3:00 PM EDT [facility] ([facility]) Glucose 91 70 - 100 mg/dL 11/15/2024 3:00 PM EDT [facility] ([facility]) Calcium 9.4 8.6 - 10.3 mg/dL 11/15/2024 3:00 PM EDT [facility] ([facility]) Anion Gap 11 7 - 20 mmol/L 11/15/2024 3:00 PM EDT [facility] ([facility]) eGFR 98.5 >60.0 mL/min/1. 73m*2 11/15/2024 3:00 PM EDT [facility] ([facility]) Comment:The [facility] s estimated glomerular filtration rate (eGFR) will no longer include consideration of race in its calculation. The [employer] s eGFR Task Force developed new recommendations for the estimation of the glomerular filtration rate in the [place] They recommend immediate implementation of the new equation refit without the race variable in all laboratories because the calculation does not include race. In addition to not including race in the calculation and reporting, it included diversity in its development, and has acceptable performance characteristics and potential consequences that do not disproportionately affect any one group of individuals. BUN/Creatinine Ratio 19.8 11/01 3:00 PM EDT [facility] ([facility]) Blood Venous blood specimen / Unknown Venipuncture / Unknown 11/15/2024 1:49 PM EDT 11/15/2024 2:13 PM EDT us Deep Mcfarland MD LAB BLOOD ORDERABLES Final Resu lt [facility] ([facility]) [address] [place] [address] from Last 3 Months Insurance [employer] Advance Directives * Full Code (Latest Code Status on File) Date Activated Date Inactivated Comments 11/18/2024 11:06 AM 11/18/2024 5:00 PM Care Teams Biodiesel Product Manager Relationship Specialty Start Date End Date Gildardo Paredes MD [address] [place] [address] PCP - General Family Medicine 10/06/23
--- OUTSIDE RECORDS SUMMARY | 2025-02-06 10:11 | XMS_ITS | Encounter Summary ---
Author Organization [facility] [employer] Address [id number] [address] [place] [address] Care Team Providers Care Clay Hoister Name Role Phone Gildardo Paredes MD Primary Care Provider [phone] Encounter Details Date Type Department Care Team (Late st Contact Info) Description 03/05/2021 Orders Only [facility] [address] [place] [address] Ref Prov, [place] [address] Social History Tobacco Use Types Packs/Day Years [...] Exposure Response Date Recorded In the last month, have you been in contact with someone who was confirmed or suspected to have Coronavirus / COVID-19? No / Unsure 02/14/2021 11:37 AM EDT documented as of this encounter Plan of Treatment Not on file documented as of this encounter Procedures Procedure Name Priority Date/Time Associated Diagnosis Comments VASC ARTERIAL DOPPLER LOWER LIMITED SINGLE (BRITTANY) Routine 08/07/2020 documented in this encounter Results * Vas art doppler lwr limited single (08/07/2020) Anatomical Region Laterality Modality Vascular N/A Ultrasound us Not In System Ref Prov CV VASCULAR ORDERABLES Fi nal Result documented in this encounter Visit Diagnoses Not on filedocumented in this encounter Care Teams Clay Hoister Relationship Specialty Start Date End Date Gildardo Paredes MD PCP - General Family Medicine 03/17/18 documented as of this encounter
--- OUTSIDE RECORDS SUMMARY | 2025-02-06 10:12 | XMS_ITS | Clinical Summary ---
Author Organization [employer] Address [id number] [address] [place] [address] Care Team Providers Care Porter Baggage Name Role Phone Gildardo Paredes MD Primary Care Provider [phone] Allergies No known active allergies Medications acetaminophen (TYLENOL) 500 mg tablet Take 500 mg by mouth every 6 (six) hours as needed. Active amiodarone (PACERONE) 200 mg tablet Take 200 mg by mouth daily. Active metoclopramide (REGLAN) 5 mg tablet Take 5 mg by mouth daily. Active metoprolol tartrate (LOPRESSOR) 25 mg tablet Take 25 mg by mouth daily. Active oxyCODONE-aceta minophen (PERCOCET) 5-325 mg per tablet Take 1 tablet by mouth every 8 (eight) hours as needed. Active potassium chloride (K-DUR) 10 MEQ CR tablet Take 10 mEq by mouth daily. Active zolpidem (AMBIEN) 10 mg tablet 9 Active albuterol (PROVENTIL,VENT KATEY) 2.5 mg /3 mL (0.083 %) nebulizer solution 2.5 mg. Active albuterol (PROVENTIL HFA;VENTOLIN HFA) 90 mcg/actuation inhaler every 4 (four) hours. Active fluticasone furoate-vilante rol (BREO ELLIPTA) 100-25 mcg/dose blister with device daily. Active buPROPion XL (WELLBUTRIN XL) 300 mg 24 hr tablet daily. Active amLODIPine (NORVASC) 5 mg tablet daily. Active ciclopirox (PENLAC) 8 % solution APPLY SOLUTION TO TOENAILS NIGHTLY 0 Active SANTYL ointment Apply 1 application topically daily. 0 Active omeprazole (PriLOSEC) 40 mg capsule Take 1 capsule (40 mg total) by mouth daily. 30 capsule 1 1 Active cilostazoL (PLETAL) 50 mg tabletIndicatio ns:Abnormal ankle brachial index (BRITTANY),PAD (peripheral artery disease),Claudi cation Take 1 tablet (50 mg total) by mouth in the morning and 1 tablet (50 mg total) before bedtime. 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 Hypertension 01/09/2025 Hyperlipidemia 01/09/2025 Left ventricular hypertrophy 01/09/2025 ICAO (internal carotid artery occlusion), left 0 01/09/2025 Chronic obstructive pulmonary disease 01/09/2025 Intracranial aneurysm 01/09/2025 History of throat cancer 01/09/2025 PAD (peripheral artery disease) 02/15/2021 Abnormal ankle brachial index (BRITTANY) 09/21/2019 Overview (09/21/2019): Added automatically from request for surgery [id number] Resolved Problems Problem Noted Date Diagnosed Date Resolved Date Non-healing wound of left heel 09/21/2019 02/15/2021 Overview (09/21/2019): Added automatically from request for surgery [id number] Family History Medical History Relation Name Comments Diabetes Brother Aortic aneurysm Mother Breast cancer Mother Diabetes Mother Relation Name Status Comments Brother Father Mother Social History Tobacco Use Types Packs/Day Years Used Date Smoking Tobacco: Every Day Cigarettes Smokeless Tobacco: Never Tobacco Cessation:Ready to Q uit: Yes; Counseling Given: Yes Comments:1 pack every 5 days reported 08/15/2021 [...] Sign Reading Time Taken Comments Blood Pressure 137/104 11/02/2023 10:32 AM EDT Pulse 109 11/02/2023 10:32 AM EDT Temperature 37.5 C (99.5 F) 11/02/2023 10:32 AM EDT Respiratory Rate 18 11/02/2023 10:32 AM EDT Oxygen Saturation 99% 11/02/2023 10:32 AM EDT Inhaled Oxygen Concentration - - Weight 78.9 kg (174 lb) 11/02/2023 10:32 AM EDT Height 177.8 cm (5' 10 ) 11/02/2023 10:32 AM EDT Body Mass Index 24.97 11/02/2023 10:32 AM EDT Plan of Treatment Health Maintenance Due Date Last Done Comments Statin Use: Cardiovascular 1960 Tobacco Counseling 1960 Depression Screening 1972 Colonoscopy 04/04/2023 04/04/2020 Adult BMI Screening 11/01/2024 11/02/2023 COVID-19 Vaccine (2024-2 6 season) 2025 05/27/2023, 06/12/2022, 12/20/2020, Additional history exists Influenza Vaccine 01/02/2025 02/29/2024, , 02/18/2022, Additional history exists Tobacco Screening 01/09/2026 01/09/2025 DTaP,Tdap and Td Vaccines (3 - Td or Tdap) 05/31/2034 05/31/2024, 05/14/2018 Zoster (Shingles) Vaccine Completed 07/22/2023, 03/2019 Medical Devices Implanted Type Area Patternmaker Apprentice Wood Device Identifier Shelf Expiration Date Model / Serial / Lot Stnt [facility] Innova [id number] Rpl [id number] - [id number] Implanted:Qty : 1 on 09/28/2019 by Johan Najera MD at [facility] Stent Left: Leg [employer] [id number] 01/04/2022 [id number] / / [id number] Stnt Vsc Innova [id number] Rpl [id number] - [id number] - [id number] Implanted:Qty : 1 on 09/28/2019 by Johan Najera MD at [facility] Stent Left: Leg [employer] 09/16/2020 [id number] / [id number] / Care Teams Porter Baggage Relationship Specialty Start Date End Date Gildardo Paredes MD PCP - General Family Medicine 03/17/18
--- OUTSIDE RECORDS SUMMARY | 2025-02-06 10:12 | XMS_ITS | Encounter Summary ---
Author Organization [facility] Address [address] [place] [address] Care Team Providers Care Change Director Name Role Phone Gildardo Paredes MD Primary Care Provider [phone] Gildardo Paredes MD Unavailable Encounter Details Date Type Department Care Team (Late st Contact Info) Description 02/18/2024 Orders Only [facility] [address] [place] [address] Gildardo Paredes MD [address] [place] [address] Social History Tobacco Use Types Packs/Day Years Used Date Smoking Tobacco: Every Day Cigarettes Smokeless Tobacco: Never Comments:11-20 cigarettes a day Alcohol Use Standard Drinks/Week Comments Yes 0 (1 standard drink = 0.6 oz pur e alcohol) Caffine intake: none Sex and Gender Information Value Date Recorded Sex Assigned at Not on file Legal Sex Male 9:49 PM EDT Gender Identity Not on file Sexual Orientation Not on file documented as of this encounter Plan of Treatment Upcoming Encounters Date Type Department Care Team (Late st Contact Info) Description 02/15/2025 3:00 PM EDT Office Visit [facility] [address] [place] [phone] Sandy Negrete, DO [address] [place] [address] 02/21/2025 2:15 PM EDT Office Visit [facility] [address] [place] [address] Cal Shepherd, DPYadira [address] [place] [address] documented as of this encounter Procedures Procedure Name Priority Date/Time Associated Diagnosis Comments XR CHEST 1 VIEW Routine 02/18/2024 1:46 PM EDT documented in this encounter Results * XR chest 1 view (02/18/2024 1:46 PM EDT) Anatomical Region Laterality Modality Chest Radiographic Sophie ging Gildardo Paredes MD IMG XR PROCEDURES Final Result documented in this encounter Visit Diagnoses Not on filedocumented in this encounter Care Teams Change Director Relationship Specialty Start Date End Date Gildardo Paredes MD [address] [place] [address] PCP - General Cardiology 09/12/22 Gildardo Paredes MD [address] [place] [address] PCP - Devoted 09/01/24 documented as of this encounter
--- OUTSIDE RECORDS SUMMARY | 2025-02-06 10:12 | XMS_ITS | Encounter Summary ---
Author Organization [facility] Address [address] [place] [address] Care Team Providers Care Can Dryer Name Role Phone Gildardo Paredes MD Primary Care Provider [phone] Gildardo Paredes MD Unavailable Encounter Details Date Type Department Care Team (Late st Contact Info) Description 08/31/2024 Orders Only [facility] [address] [facility] [address] [place] [address] Martin Brizuela MD [address] [place] [address] Social History Tobacco Use Types Packs/Day Years Used Date Smoking Tobacco: Every Day Cigarettes Smokeless Tobacco: Never Comments:11-20 cigarettes a day Alcohol Use Standard Drinks/Week Comments Yes 0 (1 standard drink = 0.6 oz pur e alcohol) Caffine intake: none PHQ-2 Answer Date Recorded Patient Health Questionnaire-2 Score 2 04/12/2024 Sex and Gender Information Value Date Recorded Sex Assigned at Not on file Legal Sex Male 9:49 PM EDT Gender Identity Not on file Sexual Orientation Not on file documented as of this encounter Plan of Treatment Upcoming Encounters Date Type Department Care Team (Late st Contact Info) Description 02/15/2025 3:00 PM EDT Office Visit [facility] [address] [place] [address] Sandy Negrete, DO [address] [place] [address] 02/21/2025 2:15 PM EDT Office Visit [facility] [address] [place] [address] Cal Shepherd DPM [address] [place], [place] [address] documented as of this encounter Procedures Procedure Name Priority Date/Time Associated Diagnosis Comments RHYTHM ECG, REPORT Routine 08/31/2024 7:46 AM EDT documented in this encounter Results * ECG 3 Lead (08/31/2024 7:46 AM EDT) us Martin Brizuela MD IN CLINIC/BEDSIDE ORDERABLES Final Result documented in this encounter Visit Diagnoses Not on filedocumented in this encounter Additional Health Concerns Assessment Noted Time PHQ-9 Depression Total Score: 5 04/12/20 24 1:00 PM EST documented as of this encounter Care Teams Can Dryer Relationship Specialty Start Date End Date Gildardo Paredes MD [address] [place] [address] PCP - General Cardiology 09/12/22 Gildardo Paredes MD [address] [place] [address] PCP - Devoted 09/01/24 documented as of this encounter
--- OUTSIDE RECORDS SUMMARY | 2025-02-06 10:12 | XMS_ITS | Encounter Summary ---
Author Organization [facility] Address [address] [place] [address] Care Team Providers Care Italian Teacher Name Role Phone Gildardo Lacy MD Primary Care Provider [phone] Gildardo Lacy MD Unavailable Encounter Details Date Type Department Care Team (Late st Contact Info) Description 07/01/2023 Clinisync Result Encounter [facility] External Department Unsolicited Gildardo Lacy MD [address] [place] [address] Social History Tobacco Use Types Packs/Day Years Used Date Smoking Tobacco: Every Day Cigarettes Smokeless Tobacco: Never Comments:11-20 cigarettes a day Alcohol Use Standard Drinks/Week Comments Never 0 (1 standard drink = 0.6 oz [...] EDT Office Visit [facility] [address] [place] [address] Sandy Negrete, DO [address] [place] [address] 02/21/2025 2:15 PM EDT Office Visit [facility] [address] [facility] [place] [address] Cal Shepherd DPM [address] [place], [place] [address] documented as of this encounter Procedures Procedure Name Priority Date/Time Associated Diagnosis Comments SEGMENTAL BLOOD PRESSURE 07/01/2023 2:44 PM EST documented in this encounter Results * SEGMENTAL BLOOD PRESSURE (07/01/2023 2:44 PM EST) Anatomical Region Laterality Modality Radiographic Sophie ging 07/01/2023 2:44 PM EST Narrative 07/02/2023 11:23 [place] [address] Cardiology Report Signed Patient: SEPIDEH FLOYD MR#: [id number] : 1960 Acct:[id number] Age/Sex: 62 / M ADM Date: 07/01/23 Loc: CARD Attending Dr: Gildardo Lacy M.D. Ordering Physician: Gildardo Lacy M.D. Date of Service: 07/01/23 Procedure(s): CA segmental UE or LE BEBA Accession Number(s): [id number] cc: Gildardo Lacy M.D. [facility] Test Date: 2023-07-01 Pat Name: SEPIDEH FLOYD Department: Room: - Gender: Male Communications Executive: : 1960 Requested By: GILDARDO LACY Order Number: [id number] Reading MD: ESAU CROWLEY Interpretive Statements Monophasic doppler waveforms. PVR waveforms with delayed upstroke, blunted amplitude and loss of dicrotic notch. Right: - no significant pressure gradient between cuffs - abnormal BRITTANY Left: - significant pressure gradient between the brachial and thigh cuff - abnormal BRITTANY Impression: - abnormal arterial evaluation of the right lower extremity with mild hemodynamic impairment of the right lower extremity at rest. 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 (left BRITTANY 0.47) Electronically Signed On 07-02-2023 23:23:24 EST by ESAU CROWLEY Dictated By: Esau Crowley D.O. Signed By: 07/02/23232207/02/232322 DD/ 144 TD/TT: Global Lead: Procedure Note Radiology, Radiologist, - 07/02/2023 [place] [address] Cardiology Report Signed Patient: SEPIDEH FLOYD LMR#: [id number] : 1960cct:[id number] Age/Sex: 62 / MADM Date: 07/01/23 Loc: CARD Attending Dr: Gildardo Lacy M.D. Ordering Physician: Gildardo Lacy M.D. Date of Service: 07/01/23 Procedure(s): CA segmental UE or LE BEBA Accession Number(s): [id number] cc: Gildardo Lacy M.D. [facility] Test Date: 2023-07-01 Pat Name: SEPIDEH FLOYD Department: Room: - Gender: Male Communications Executive: : 1960 Requested By: GILDARDO LACY Order Number: [id number] Reading MD: ESAU CROWLEY Interpretive Statements Monophasic doppler waveforms. PVR waveforms with delayed upstroke, blunted amplitude and loss ofdicrotic notch. Right: - no significant pressure gradient between cuffs - abnormal BRITTANY Left: - significant pressure gradient between the brachial and thigh cuff - abnormal BRITTANY Impression: - abnormal arterial evaluation of the right lower extremity with mild hemodynamic impairment of the right lower extremity at rest. 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 (leftABI 0.47) Electronically Signed On 07-02-2023 23:23:24 EST by ESAU CROWLEY Dictated By: Esau Crowley D.O. Signed By:07/02/23232207/02/232322 DD/ 43 TD/TT: Global Lead: Gildardo Lacy MD IMG XR PROCEDURES Final Result documented in this encounter Visit Diagnoses Not on filedocumented in this encounter Care Teams Italian Teacher Relationship Specialty Start Date End Date Gildardo Lacy MD [address] [place] [address] PCP - General Cardiology 09/12/22 Gildardo Lacy MD [address] [place] [address] PCP - Devoted 09/01/24 documented as of this encounter
--- OUTSIDE RECORDS SUMMARY | 2025-02-06 10:12 | XMS_ITS | Encounter Summary ---
Author Organization [facility] Address [address] [place] [address] Care Team Providers Care Access Service Representative Name Role Phone Gildardo Paredes MD Primary Care Provider [phone] Gildardo Paredes MD Unavailable Encounter Details Date Type Department Care Team (Late st Contact Info) Description 12/01/2022 Abstract [facility] [address] [facility] [address] [place] [address] Randell Feliz, PT [address] [facility] [address] [place] [address] Social History Tobacco Use Types Packs/Day Years [...] EDT Office Visit [facility] [address] [place] [address] Sandy Negrete, DO [address] [place] [address] 02/21/2025 2:15 PM EDT Office Visit [facility] [address] [place] [address] Cal Shepherd, DPM [address] [place], [place] [phone] documented as of this encounter Visit Diagnoses Not on filedocumented in this encounter Care Teams Access Service Representative Relationship Specialty Start Date End Date Gildardo Paredes MD [address] [place] [address] PCP - General Cardiology 09/12/22 Gildardo Paredes MD [address] [place] [address] PCP - Devoted 09/01/24 documented as of this encounter
--- OUTSIDE RECORDS SUMMARY | 2025-02-06 10:12 | XMS_ITS | Encounter Summary ---
Author Organization [facility] Address [address] [place] [address] Care Team Providers Care Extrusion Technician Name Role Phone Gildardo Paredes MD Primary Care Provider [phone] Soren Cash MD Unavailable Unavail able Nathaly Abernathy BLOOD BANK CREDIT CLERK.LINE CONSTRUCTION SUPERVISOR Unavailable [phone] Cynthia Cutler RN Unavailable [phone] Kathrine Velasquez MD Unavailable [phone] Amira Powell Unavailable Unavailable Nato Hood Unavailable Unavailable Source Comments In the event this information is protected by the Federal Confidentiality of Alcohol and Drug AbusePatient Records regulations: The Federal rules restrict any use of the information to criminally investigate or prosecute any alcohol or drug abuse patient.[facility] Encounter Details Date Type Department Care Team (Late st Contact Info) Description 07/17/2021 [address] [facility] [address] [place] [address] Provider, [facility] Referral to Wellness Social History Tobacco Use Types Packs/Day Years Used Date Smoking Tobacco: Every Day Cigarettes 1 40 Smokeless Tobacco: Never Comments:down to 1/10 ppd Alcohol Use Standard Drinks/Week Comments Yes 0 (1 standard drink = 0.6 oz pur e alcohol) not weekly PHQ-2 Answer Date Recorded PHQ-2 score 0 04/11/2021 Area Deprivation Index Answer Date Yovany rded National Score (1-100), lower number is lower ri sk Not on file 07/27/2020 State Score (1-10), lower number is lower risk N ot on file 07/27/2020 Data from: https://www.neighborhoodatlas.medicine.[facility]/. Last address used for calculation Not on file 07/27/2020 Sex and Gender Information Value Date Recorded Sex Assigned at Not on file Legal Sex Male 4:08 PM EDT Gender Identity Not on file Sexual Orientation Not on file COVID-19 Exposure Response Date Recorded In the last 10 days, have yo u been in contact with someone who was confirmed or suspected to have Coronavirus/COVID-19? No / Unsure 07/16/2021 1:32 PM EDT documented as of this encounter Functional Status * Are you deaf or do you have serious difficulty hearing? Answer Date of Assessment Author No 06/28/2021 12:57 PM Loree Matias RN * Are you blind or do you have serious difficulty seeing, even when wearing glasses? Answer Date of Assessment Author No 06/28/2021 12:57 PM Loree Matias RN * Do you have serious difficulty walking or climbing stairs? Answer Date of Assessment Author No 06/28/2021 12:57 PM Loree Matias RN * Do you have difficulty dressing or bathing? Answer Date of Assessment Author No 06/28/2021 12:57 PM Loree Matias RN * Because of a physical, mental, or emotional condition, do you have difficulty doing errands alone such as visiting a doctor's office or shopping? Answer Date of Assessment Author No 06/28/2021 12:57 PM Loree Matias RN documented as of this encounter Mental Status * Because of a physical, mental, or emotional condition, do you have serious difficulty concentrating, remembering, or making decisions? Answer Entry Date Author No 06/28/2021 12:57 PM Loree Matias RN documented in this encounter Plan of Treatment Upcoming Encounters Date Type Department Care Team (Late st Contact Info) Description 06/20/2025 11:00 AM EST Office Visit [facility] [address] [place] [address] LAB 06/27/2025 1:45 PM EST Office Visit Radiation Oncology [address] [place] [address] Kathrine Velasquez MD [address] [facility] [place] [address] 6 month follow up documented as of this encounter Visit Diagnoses Not on filedocumented in this encounter Care Teams Extrusion Technician Relationship Specialty Start Date End Date Gildardo Paredes MD [address] [place] [address] PCP - General Family Medicine 07/16/20 Soren Cash MD [address] [place] [address] Physician Hematology/Oncology 08/07/20 11/04/24 Nathaly Abernathy, [email or web address].LINE CONSTRUCTION SUPERVISOR [address] [facility] [place] [address] Nurse Practitioner Hematology/Oncology 08/07/20 Cynthia Cutler, RN [address] [facility] [place] [address] Specialty Projector Booth Operator Hematology/Oncology 08/07/20 03/04/23 Kathrine Velasquez MD [address] [facility] [place] [address] Physician Radiation Oncology 08/07/20 Amira Powell LSW Rolled Seat Trimmer 09/16/21 Nato Hood PA Family Medicine 05/24/24 documented as of this encounter
--- OUTSIDE RECORDS SUMMARY | 2025-02-06 10:12 | XMS_ITS | Encounter Summary ---
Author Organization [facility] Address [address] [place] [address] Care Team Providers Care Buckle Stapler Name Role Phone Gildardo Paredes MD Primary Care Provider [phone] Soren Cash MD Unavailable Unavail able Nathaly Abernathy DEMAND PLANNING MANAGER.PROFESSOR OF EARLY CHILDHOOD EDUCATION Unavailable [phone] Kathrine Velasquez MD Unavailable [phone] Amira Powell Unavailable Unavailable Nato Hood Unavailable Unavailable Source Comments In the event this information is protected by the Federal Confidentiality of Alcohol and Drug AbusePatient Records regulations: The Federal rules restrict any use of the information to criminally investigate or prosecute any alcohol or drug abuse patient.[facility] Encounter Details Date Type Department Care Team (Late st Contact Info) Description 06/07/2024 Patient Msg Orthopaedics [address] [id number] Provider, Ccf Xray Social History Tobacco Use Types Packs/Day Years Used Date Smoking Tobacco: Every Day Cigarettes 1 40 Passive Smoke Exposure: Past Smokeless Tobacco: Never Comments:down to 05/13 ppd Alcohol Use Standard Drinks/Week Comments Yes 0 (1 standard drink = 0.6 oz pur e alcohol) not weekly PHQ-2 Answer Date Recorded PHQ-2 score 3 06/10/2024 Area Deprivation Index Answer Date Yovany rded National Score (1-100), lower number is lower ri sk 64 09/16/2022 State Score (1-10), lower number is lower risk 4 09/16/2022 Data from: https://www.neighborhoodatlas.medicine.[facility]/. Last address used for calculation [address] 09/16/2022 Sex and Gender Information Value Date Recorded Sex Assigned at Not on file Legal Sex Male 4:08 PM EDT Gender Identity Not on file Sexual Orientation Not on file documented as of this encounter Functional Status [...] Description 06/20/2025 11:00 AM EST Office Visit [facility] [address] [place] [address] [place] [address] LAB 06/27/2025 1:45 PM EST Office Visit Radiation Oncology [address] [place] [address] [place] [address] Kathrine Velasquez MD [address] [place] [address] 6 month follow up documented as of this encounter Visit Diagnoses Not on filedocumented in this encounter Care Teams Buckle Stapler Relationship Specialty Start Date End Date Gildardo Paredes MD [address] [place] [address] PCP - General Family Medicine 07/16/20 Soren Cash MD [address] [place] [address] Physician Hematology/Oncology 08/07/20 11/04/24 Nathaly Abernathy APRN.[facility] [address] [place] [address] Nurse Practitioner Hematology/Oncology 08/07/20 Kathrine Velasquez MD [address] [address] Physician Radiation Oncology 08/07/20 Amira Powell LSW Paint Prep Technician 09/16/21 Nato Hood PA Family Medicine 05/24/24 documented as of this encounter
--- OUTSIDE RECORDS SUMMARY | 2025-02-06 10:12 | XMS_ITS | Encounter Summary ---
Author Organization [facility] Address [address] [place] [address] Care Team Providers Care Hospice Superintendent Name Role Phone Gildardo Paredes MD Primary Care Provider [phone] Gildardo Paredes MD Unavailable Encounter Details Date Type Department Care Team (Late st Contact Info) Description 02/04/2024 Clinisync Result Encounter [facility] External Department Unsolicited Nato Hood, EMILIE [address] [place] [address] Social History Tobacco Use Types Packs/Day Years [...] 3:00 PM EDT Office Visit [facility] [address] [place] [address] Sandy Negrete, DO [address] [place] [address] 02/21/2025 2:15 PM EDT Office Visit [facility] [address] [place] [address] Cal Shepherd, JJ [address] [place], [place] [address] documented as of this encounter Procedures Procedure Name Priority Date/Time Associated Diagnosis Comments ECG 12-LEAD 02/04/2024 12:35 PM EDT documented in this encounter Results * ECG 12-LEAD (02/04/2024 12:35 PM EDT) Anatomical Region Laterality Modality Other 02/04/2024 12:3 5 PM EDT Narrative 02/04/2024 7:51 PM EDT [facility] [place] [id number] Electrocardiograph Report Signed Patient: SEPIDEH FLOYD MR#: [id number] : 1960 Acct:[id number] Age/Sex: 63 / M ADM Date: 02/04/24 Loc: CARD Attending Dr: Nato PHAN Ordering Physician: Nato Hood Date of Service: 02/04/24 Procedure(s): ECG 12 lead Accession Number(s): [id number] cc: [facility] Test Date: 2024-02-04 Pat Name: SEPIDEH FLOYD Department: Room: - Gender: Male Medical Manager: : 1960 Requested By: [id number] Order Number: [id number] Reading MD: ESAU CROWLEY Measurements Intervals [place] Rate: 93 P: 75 NV: 130 QRS: 77 QRSD: 94 T: 80 QT: 350 QTc: 436 Interpretive Statements SINUS RHYTHM WITH SINUS ARRHYTHMIA Compared to ECG 09/30/2023 12:53:19 Sinus tachycardia no longer present Electronically Signed On 02-04-2024 19:51:43 EDT by ESAU CROWLEY Dictated By: Esau Crowley D.O. Signed By: 02/04/24195002/04/241950 DD/ 1235 TD/TT: Transcript Evaluator: Procedure Note Radiology, Radiologist, - 02/04/2024 [facility] [place] [id number] Electrocardiograph Report Signed Patient: SEPIDEH FLOYD LMR#: [id number] : 1Acct:[id number] Age/Sex: 63 / MADM Date: 02/04/24 Loc: CARD Attending Dr: Nato PHAN Ordering Physician: Nato Hood Date of Service: 02/04/24 Procedure(s): ECG 12 lead Accession Number(s): [id number] cc: [facility] Test Date: 2024-02-04 Pat Name: SEPIDEH FLOYD Department: Room: - Gender: Male Medical Manager: : 1960 Requested By: [id number] Order Number: [id number] Reading MD: ESAU CROWLEY Measurements Intervals [place] Rate: 93 P: 75 NV: 130 QRS: 77 QRSD: 94 T: 80 QT: 350 QTc: 436 Interpretive Statements SINUS RHYTHM WITH SINUS ARRHYTHMIA Compared to ECG 09/30/2023 12:53:19 Sinus tachycardia no longer present Electronically Signed On 02-04-2024 19:51:43 EDT by ESAU CROWLEY Dictated By: Esau Crowley D.O. Signed By:02/04/24195002/04/241950 DD/ 1235 TD/TT: Transcript Evaluator: us Nato PHAN [facility] Final Resul t documented in this encounter Visit Diagnoses Not on filedocumented in this encounter Care Teams Hospice Superintendent Relationship Specialty Start Date End Date Gildardo Paredes MD [address] [place] [address] PCP - General Cardiology 09/12/22 Gildardo Paredes MD [address] [place] [address] PCP - Devoted 09/01/24 documented as of this encounter
--- OUTSIDE RECORDS SUMMARY | 2025-02-06 10:12 | XMS_ITS | Encounter Summary ---
Author Organization [facility] Address [address] [place] [address] Care Team Providers Care Gasoline Pump Installer Name Role Phone Gildardo Paredes MD Primary Care Provider [phone] Gildardo Paredes MD Unavailable Encounter Details Date Type Department Care Team (Late st Contact Info) Description 12/15/2023 Clinisync Result Encounter [facility] External Department Unsolicited Provider, Generic External Data Social History Tobacco Use Types Packs/Day Years [...] EDT Office Visit [facility] [address] [place] [address] Sandy Negrete, DO [address] [place] [address] 02/21/2025 2:15 PM EDT [facility] [address] [place] [address] Cal Shepherd, DPM [address] [place] [address] documented as of this encounter Procedures Procedure Name Priority Date/Time Associated Diagnosis Comments NM PET/CT SKULL-THIGH SUBQ 12/15/2023 10:49 AM EDT documented in this encounter Results * NM PET/CT SKULL-THIGH SUBQ (12/15/2023 10:49 AM EDT) Anatomical Region Laterality Modality Other 12/15/2023 10:4 9 AM EDT Narrative 12/17/2023 10:30 AM EDT * * *Final Report* * * DATE [...] * Radiopharmaceutical Activity: 6.8 mCi * Radiopharmaceutical: F25-Gzyidfupdgxmbcmeoe (FDG) * All reported standardized uptake values represent maximum SUV (SUVmax) per body weight, unless otherwise specified. COMPARISON: 02/11/2023 CORRELATION: CT neck and chest 09/10/2022 RESULT: REFERENCES: SUV reference values: * Blood pool (descending aorta) activity: SUVmax 2.1 * Background liver activity: SUVmax 2.7 System Administrator (topogram) images: No additional findings. Notes and [...] any questions regarding this interpretation, please call [phone]. If you are unable to reach us at the number above, please feel free to contact [facility] at [phone]. [id number]^[email or web address]^ACN Procedure Note Radiology, Radiologist, - 12/17/2023 * * *Final Report* * [...] * Radiopharmaceutical Activity: 6.8 mCi * Radiopharmaceutical: C32-Deymxhveehftzqlxxt (FDG) * All reported standardized uptake values represent maximum SUV (SUVmax) per body weight, unless otherwise specified. COMPARISON: 02/11/2023 CORRELATION: CT neck and chest 09/10/2022 RESULT: REFERENCES: SUV reference values: * Blood pool (descending aorta) activity: SUVmax 2.1 * Background liver activity: SUVmax 2.7 System Administrator (topogram) images: No additional findings. Notes and [...] any questions regarding this interpretation, please call [phone]. If you are unable to reach us at the number above, please feel free to contact [facility] at [phone]. [id number]^[email or web address]^SI^ACN us Generic External Data Provider [facility] Final Result documented in this encounter Visit Diagnoses Not on filedocumented in this encounter Care Teams Gasoline Pump Installer Relationship Specialty Start Date End Date Gildardo Paredes MD [address] [place] [address] PCP - General Cardiology 09/12/22 Gildardo Paredes MD [address] [place] [address] PCP - Devoted 09/01/24 documented as of this encounter
--- OUTSIDE RECORDS SUMMARY | 2025-02-06 10:12 | XMS_ITS | Encounter Summary ---
Author Organization [facility] Address [address] [place] [address] Phone Care Team Providers Care Admissions Representative Name Role Phone Gildardo Paredes MD Primary Care Provider + Gildardo Paredes MD Primary Care Provider + Encounter Details Date Type Department Care Team (Late st Contact Info) Description 08/04/2022 Orders Only [facility] [address] [place] [place] [address] Conversion, Onbase Social History Tobacco Use Types Packs/Day Years Used Date Smoking Tobacco: Never Assessed PHQ-2 Answer Date Recorded Patient Health Questionnaire-2 Score 2 11/27/2021 Sex and Gender Information Value Date Recorded Sex Assigned at Not on file Legal Sex Male 9:44 AM EST Gender Identity Not on file Sexual Orientation Not on file documented as of this encounter Plan of Treatment Upcoming Encounters Date Type Department Care Team (Late st Contact Info) Description 05/05/2025 2:00 PM EST Office Visit [facility] [address] [facility] [address] [place] [address] Carmen Herrera MD [address] [place] [address] Scheduled Orders Name Type Priority Associated Diagnoses Orde r Schedule OUTSIDE LAB SCAN Lab Ordered: 08/04/2022 documented as of this encounter Visit Diagnoses Not on filedocumented in this encounter Additional Health Concerns Assessment Noted Time PHQ-9 Depression Total Score: 8 11/28/19 22 10:47 AM EDT documented as of this encounter Care Teams Admissions Representative Relationship Specialty Start Date End Date Gildardo Paredes MD PCP - General 05/04/99 11/16/23 Gildardo Paredes MD [address] [address] PCP - General Family Medicine 11/17/23 documented as of this encounter
--- OUTSIDE RECORDS SUMMARY | 2025-02-06 10:12 | XMS_ITS | Encounter Summary ---
Author Organization [facility] Address [address] [place] [address] Care Team Providers Care Cream Dumper Name Role Phone Gildardo Paredes MD Primary Care Provider [phone] Gildardo Paredes MD Unavailable Encounter Details Date Type Department Care Team (Late st Contact Info) Description 07/03/2023 Orders Only [facility] [address] [place] [address] Gildardo Paredes MD [address] [place] [address] Social History Tobacco Use Types Packs/Day Years [...] EDT Office Visit [facility] [address] [place] [address] Sandy Negrete, DO [address] [place] [address] 02/21/2025 2:15 PM EDT Office Visit [facility] [address] [place] [address] Cal Shepherd DPYadira [address] [place], [place] [address] documented as of this encounter Procedures Procedure Name Priority Date/Time Associated Diagnosis Comments ECHOCARDIOGRAM WITH DOPPLER IF INDICATED Routine 07/03/2023 10:40 AM EST documented in this encounter Results * ECHOCARDIOGRAM WITH DOPPLER IF INDICATED (07/03/2023 10:40 AM EST) Anatomical Region Laterality Modality Radiographic Sophie ging Gildardo Paredes MD IMG XR PROCEDURES Final Result documented in this encounter Visit Diagnoses Not on filedocumented in this encounter Care Teams Cream Dumper Relationship Specialty Start Date End Date Gildardo Paredes MD [address] [place] [address] PCP - General Cardiology 09/12/22 Gildardo Paredes MD [address] [place] [address] PCP - Devoted 09/01/24 documented as of this encounter
--- OUTSIDE RECORDS SUMMARY | 2025-02-06 10:12 | XMS_ITS | Encounter Summary ---
Author Organization [facility] Address [address] [place] [address] Care Team Providers Care Hot Mill Tin Roller Name Role Phone Gildardo Paredes MD Primary Care Provider [phone] Gildardo Paredes MD Unavailable Encounter Details Date Type Department Care Team (Late st Contact Info) Description 05/20/2024 Clinisync Result Encounter [facility] External Department Unsolicited Cassie Hood, EMILIE [address] [place] [address] Social History Tobacco Use Types [...] 3:00 PM EDT Office Visit [facility] [address] [place] [address] Sandy Negrete, DO [address] [place] [address] 02/21/2025 2:15 PM EDT Office Visit [facility] [address] [place] [address] Cal Shepherd, DPM [address] [place], [place] [address] documented as of this encounter Procedures Procedure Name Priority Date/Time Associated Diagnosis Comments MR SHOULDER RIGHT WO IV CONTRAST 05/20/2024 2:59 PM EST documented in this encounter Results * MR shoulder right wo IV contrast (05/20/2024 2:59 PM EST) Anatomical Region Laterality Modality Upper Extremities, Shoulder Right Magn etic Resonance 05/20/2024 2:59 PM EST Narrative 05/20/2024 3:01 [place] [address] Magnetic Resonance Report Signed Patient: SEPIDEH FLOYD MR#: [id number] : 1960 Acct:[id number] Age/Sex: 63 / M ADM Date: 05/20/24 Loc: MRI Attending Dr: Cassie PHAN Ordering Physician: Cassie Hood Date of Service: 05/20/24 Procedure(s): MR shoulder RT wo con Accession Number(s): [id number] cc: Cassie Hood; Gildardo Paredes M.D. The [address] [address] Patient Name: SEPIDEH FLOYD MRN: [id number] date: 1960 Sex: M Assigned Patient Location: MRI Current Patient Location: MRI Accession/Order Number: [id number] Exam Date: 05/20/2024 09:45 Report Date: 05/20/2024 [...] No labral detachment. Electronically authenticated by: PAPITO MYERS Date: 05/20/2024 14:59 Dictated By: Papito Myers M.D. Signed By: 05/20/24 1501 DD/ 1459 TD/TT: Front End Web Developer: Procedure Note Radiology, Radiologist, MD - 05/20/2024 [place] [address] Magnetic Resonance Report Signed Patient: SEPIDEH FLOYD R#: [id number] : 1960cct:[id number] Age/Sex: 63 / MADM Date: 05/20/24 Loc: MRI Attending Dr: Cassie PHAN Ordering Physician: Cassie Hood Date of Service: 05/20/24 Procedure(s): MR shoulder RT wo con Accession Number(s): [id number] cc: Cassie Hood; Gildardo Paredes M.D. The [address] [address] Patient Name: SEPIDEH FLOYD MRN: [facility]:[id number] date: 1960 Sex: M Assigned Patient Location: MRI Current Patient Location: MRI Accession/Order Number: [id number] Exam Date: 05/20/2024 09:45 Report Date: 05/20/2024 14:59 At the request of: CASSIE HOOD Procedure: MR shoulder RT wo con EXAM: MR shoulder RT wo con. HISTORY: Internal derangement of right shoulder. COMPARISON: 12/21/2023 TECHNIQUE: MRI images obtained with multiple sequences. MRI of the right shoulder without contrast. Sequences obtained by standard departmentprotocol. FINDINGS: Normal alignment of the acromioclavicular joint. [...] No labral detachment. Electronically authenticated by: PAPITO MYERS Date: 05/20/2024 14:59 Dictated By: Papito Myers M.D. Signed By:05/20/24 1501 DD/ 1459 TD/TT: Front End Web Developer: us Cassie PHAN IMG MRI PROCEDURES Final Resu lt documented in this encounter Visit Diagnoses Not on filedocumented in this encounter Additional Health Concerns Assessment Noted Time PHQ-9 Depression Total Score: 5 04/12/20 24 1:00 PM EST documented as of this encounter Care Teams Hot Mill Tin Roller Relationship Specialty Start Date End Date Gildardo Paredes MD [address] [place] [address] PCP - General Cardiology 09/12/22 Gildardo Paredes MD [address] [place] [address] PCP - Devoted 09/01/24 documented as of this encounter
--- OUTSIDE RECORDS SUMMARY | 2025-02-06 10:12 | XMS_ITS ---
Author Organization [facility] Address [address] [place] [address] Care Team Providers Care Pay Station Department Manager Name Role Phone Gildardo Paredes MD Primary Care Provider [phone] Nathaly Abernathy APRN.ERISA ATTORNEY Unavailable [phone] Kathrine Velasquez MD Unavailable [phone] Amira Powell Unavailable Unavailable Nato Hood Unavailable Unavailable Active Problems * This document contains information received from the source organization and may not represent a complete record from that organization. Problem Noted Date Diagnosed Date Nausea 09/16/2021 [...] now with recurrence Severe protein-calorie malnutrition 08/01/2020 Current Treatment and Therapy Plans No current plan information found. Past Treatment and Therapy Plans ONCOLOGY REGIMEN Plan Name Start Date Discontinue Date Treatment Medications Discontinue Reason Plan Provider Cycles AMB PACLITAXEL 50, CARBOPLATIN 2 D1,8,15,22,29 ,36,43,50 - Q56D 2 04/17/2022 CARBOplatin iv piggyback (PARAPLATIN) Other Soren Cash MD 1 of 1 cycle started AMB CARBOPLATIN 2 D1,8,15,22,29 ,36,43,50 - Q56D 08/13/19 22 08/05/2021 CARBOplatin iv piggyback (PARAPLATIN) Other Soren Cash MD Treatment not started CISPLATIN 40 D1,8,15,22 - Q28D 08/15/19 21 08/01/2021 CISplatin iv piggyback or iv infusionfosaprepitant iv piggyback in NaCl 0.9% (EMEND) Treatment Complete Soren Cash MD 1 of 1 cycle started
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
--- OUTSIDE RECORDS SUMMARY | 2025-02-06 10:12 | XMS_ITS | Encounter Summary ---
Author Organization [facility] Address [address] [place] [address] Phone Care Team Providers Care Deputy Treasurer Name Role Phone Gildardo Paredes MD Primary Care Provider + Gildardo Paredes MD Primary Care Provider + Encounter Details Date Type Department Care Team (Late st Contact Info) Description 09/16/2022 Orders Only [facility] [address] [place] [place] [address] Conversion, Onbase Social History Tobacco Use Types [...] Description 05/05/2025 2:00 PM EST Office Visit [facility] [address] [facility] [address] [place] [address] Carmen Herrera MD [address] [place] [address] Scheduled Orders Name Type Priority Associated Diagnoses Orde r Schedule OUTSIDE LAB SCAN Lab Ordered: 09/16/2022 documented as of this encounter Visit Diagnoses Not on filedocumented in this encounter Additional Health Concerns Assessment Noted Time PHQ-9 Depression Total Score: 8 11/28/19 22 10:47 AM EDT documented as of this encounter Care Teams Deputy Treasurer Relationship Specialty Start Date End Date Gildardo Paredes MD PCP - General 05/04/99 11/16/23 Gildardo Paredes MD [address] [place] [address] PCP - General Family Medicine 11/17/23 documented as of this encounter
--- OUTSIDE RECORDS SUMMARY | 2025-02-06 10:12 | XMS_ITS | Encounter Summary ---
Author Organization [facility] Address [facility] [place] [address] Care Team Providers Care Nutrition Services Assistant Name Role Phone Gildardo Paredes MD Primary Care Provider [phone] Soren Cash MD Unavailable Unavail able Nathaly Abernathy GATEKEEPER.IN ROOM DINING SERVER Unavailable [phone] Cynthia Cutler RN Unavailable [phone] Kathrine Velasquez MD Unavailable [phone] Amira Powell Unavailable Unavailable Nato Hood Unavailable Unavailable Source Comments In the event this information is protected by the Federal Confidentiality of Alcohol and Drug AbusePatient Records regulations: The Federal rules restrict any use of the information to criminally investigate or prosecute any alcohol or drug abuse patient.[facility] Encounter Details Date Type Department Care Team (Latest Contact Info) Description 09/23/2021 H&P External-NonCCF Provider, Shabana, WENDIC Do not enter address information under generic External Provider. Social History Tobacco Use Types Packs/Day Years Used Date Smoking Tobacco: Every Day Cigarettes 1 40 Smokeless Tobacco: Never Comments:down to / ppd Alcohol Use Standard Drinks/Week Comments Yes 0 (1 standard drink = 0.6 oz pur e alcohol) not weekly PHQ-2 Answer Date Recorded PHQ-2 score 0 08/01/2021 Area Deprivation Index Answer Date Yovany rded National Score (1-100), lower number is lower ri sk 63 09/19/2021 State Score (1-10), lower number is lower risk N ot on file 09/19/2021 Data from: https://www.neighborhoodatlas.medicine.[facility]/. Last address used for calculation [address] [place] 09/19/2021 Sex and Gender Information Value Date Recorded Sex Assigned at Not on file Legal Sex Male 4:08 PM EDT Gender Identity Not on file Sexual Orientation Not on file COVID-19 Exposure Response Date Recorded In the last 10 days, have yo u been in contact with someone who was confirmed or suspected to have Coronavirus/COVID-19? No / Unsure 09/25/2021 3:22 PM EDT documented as of this encounter [...] Office Visit [facility] [address] [address] LAB 06/27/2025 1:45 PM EST Office Visit Radiation Oncology [facility] [address] [place] [address] Kathrine Velasquez MD [address] [place] [address] [place] [address] 6 month follow up documented as of this encounter Visit Diagnoses Not on filedocumented in this encounter Care Teams Nutrition Services Assistant Relationship Specialty Start Date End Date Gildardo Paredes MD [address] [place] [place] [address] PCP - General Family Medicine 07/16/20 Soren Cash MD [address] [place] [address] Physician Hematology/Oncology 08/07/20 11/04/24 Nathaly Abernathy APRN.IN ROOM DINING SERVER [address] [place] [address] Nurse Practitioner Hematology/Oncology 08/07/20 Cynthia Cutler, RN [address] [place] [address] [place] [address] Specialty Vp Lab Hematology/Oncology 08/07/20 03/04/23 Kathrine Velasquez MD [address] [place] [address] Physician Radiation Oncology 08/07/20 Amira Powell LSW Firestop/Containment Worker 09/16/21 Nato Hood PA Family Medicine 05/24/24 documented as of this encounter
--- OUTSIDE RECORDS SUMMARY | 2025-02-06 10:12 | XMS_ITS | Encounter Summary ---
Author Organization [facility] Address [address] [place] [address] Phone Care Team Providers Care Upholstery Instructor Name Role Phone Gildardo Paredes MD Primary Care Provider + Gildardo Paredes MD Primary Care Provider + Encounter Details Date Type Department Care Team (Late st Contact Info) Description 10/03/2021 Orders Only [facility] [address] [place] [address] Conversion, Onbase Social History Tobacco Use Types Packs/Day Years Used Date Smoking Tobacco: Never Assessed Sex and Gender Information Value Date Recorded Sex Assigned at Not on file Legal Sex Male 9:44 AM EST Gender Identity Not on file Sexual Orientation Not on file documented as of this encounter Plan of Treatment Upcoming Encounters Date Type Department Care Team (Late st Contact Info) Description 05/05/2025 2:00 PM EST Office Visit [facility] [address] [facility] [address] [place] [address] Carmen Herrera MD [address] [facility] [address] [place], [place] [id number] Scheduled Orders Name Type Priority Associated Diagnoses Orde r Schedule OUTSIDE LAB SCAN Lab Ordered: 10/03/2021 documented as of this encounter Visit Diagnoses Not on filedocumented in this encounter Care Teams Upholstery Instructor Relationship Specialty Start Date End Date Gildardo Paredes MD PCP - General 05/04/99 11/16/23 Gildardo Paredes MD [address] [place] [address] PCP - General Family Medicine 11/17/23 documented as of this encounter
--- OUTSIDE RECORDS SUMMARY | 2025-02-06 10:12 | XMS_ITS | Encounter Summary ---
Author Organization [facility] Address [address] [place] [address] Care Team Providers Care Aeroplane Pilot Name Role Phone Gildardo Paredes MD Primary Care Provider [phone] Gildardo Paredes MD Unavailable Encounter Details Date Type Department Care Team (Late st Contact Info) Description 12/27/2024 Abstract [facility] [address] [place] [place] [address] Sandy Negrete DO [address] [place] [address] Social History Tobacco Use Types Packs/Day Years [...] PM EDT Office Visit [facility] [address] [place] [address] Sandy Negrete DO [address] [place] [address] 02/21/2025 2:15 PM EDT Office Visit [facility] [address] [place] [address] Cal Shepherd, DPYadira [address] [place], [place] [address] documented as of this encounter Visit Diagnoses Not on filedocumented in this encounter Additional Health Concerns Assessment Noted Time PHQ-9 Depression Total Score: 5 04/12/20 24 1:00 PM EST documented as of this encounter Care Teams Aeroplane Pilot Relationship Specialty Start Date End Date Gildardo Paredes MD [address] [place] [address] PCP - General Cardiology 09/12/22 Gildardo Paredes MD [address] [place] [address] PCP - Devoted 09/01/24 documented as of this encounter
--- OUTSIDE RECORDS SUMMARY | 2025-02-06 10:12 | XMS_ITS | Encounter Summary ---
Author Organization [facility] Address [address] [place] [address] Care Team Providers Care County Nurse Name Role Phone Gildardo Paredes MD Primary Care Provider [phone] Soren Cash MD Unavailable Unavail able Nathaly Abernathy EGG TESTER.ONLINE MARKETING STRATEGIST Unavailable [phone] Cynthia Cutler RN Unavailable [phone] Kathrine Velasquez MD Unavailable [phone] Amira Powell Unavailable Unavailable Nato Hood Unavailable Unavailable Source Comments In the event this information is protected by the Federal Confidentiality of Alcohol and Drug AbusePatient Records regulations: The Federal rules restrict any use of the information to criminally investigate or prosecute any alcohol or drug abuse patient.[facility] Encounter Details Date Type Department Care Team (Late st Contact Info) Description 07/23/2021 [address] [facility] [address] [place] [address] Provider, [facility] Smoking Cessation Program Social History Tobacco Use Types Packs/Day Years [...] N ot on file 07/27/2020 Data from: https://www.neighborhoodatlas.medicine[facility]/. Last address used for calculation Not [...] suspected to have Coronavirus/COVID-19? No / Unsure 07/25/2021 2:06 PM EDT documented as of this encounter [...] Description 06/20/2025 11:00 AM EST Office Visit [facility] [address] [place] [address] LAB 06/27/2025 1:45 PM EST Office Visit Radiation Oncology [address] [place] [address] Kathrine Velasquez MD [address] [place] [address] 6 month follow up documented as of this encounter Visit Diagnoses Not on filedocumented in this encounter Care Teams County Nurse Relationship Specialty Start Date End Date Gildardo Paredes MD [address] [place] [address] PCP - General Family Medicine 07/16/20 Soren Cash MD [address] [place] [address] Physician Hematology/Oncology 08/07/20 11/04/24 Nathaly Abernathy, ALEXY.ONLINE MARKETING STRATEGIST [address] [place] [place] [address] Nurse Practitioner Hematology/Oncology 08/07/20 Cynthia Cutler, RN [address] [place] [address] Specialty Hand Shaper Hematology/Oncology 08/07/20 03/04/23 Kathrine Velasquez MD [address] [place] [address] Physician Radiation Oncology 08/07/20 Amira Powell LSW It Network Engineer 09/16/21 Nato Hood PA Family Medicine 05/24/24 documented as of this encounter
--- OUTSIDE RECORDS SUMMARY | 2025-02-06 10:12 | XMS_ITS | Encounter Summary ---
Author Organization [facility] Address [address] [place] [address] Care Team Providers Care Foreign Language Professor Name Role Phone Gildardo Paredes MD Primary Care Provider [phone] Gildardo Paredes MD Unavailable Encounter Details Date Type Department Care Team (Late st Contact Info) Description 10/01/2023 Orders Only [facility] [address] [place] [address] Gildardo Paredes MD [address] [place] [address] Social History Tobacco Use Types [...] PM EDT Office Visit [facility] [address] [place] [address] Sandy Negrete, DO [address] [facility] [place] [address] 02/21/2025 2:15 PM EDT Office Visit [facility] [address] [place] [address] Cal Shepherd, DPYadira [address] [place] [address] documented as of this encounter Procedures Procedure Name Priority Date/Time Associated Diagnosis Comments ELECTROCARDIOGRAM REPORT Routine 024 9:13 AM EDT documented in this encounter Results * Electrocardiogram Report (10/01/2023 9:13 AM EDT) Gildardo Paredes MD IN CLINIC/BEDSIDE ORDERABLES Fin al Result documented in this encounter Visit Diagnoses Not on filedocumented in this encounter Care Teams Foreign Language Professor Relationship Specialty Start Date End Date Gildardo Paredes MD [address] [place] [address] PCP - General Cardiology 09/12/22 Gildardo Paredes MD [address] [place] [address] PCP - Devoted 09/01/24 documented as of this encounter
--- OUTSIDE RECORDS SUMMARY | 2025-02-06 10:12 | XMS_ITS | Encounter Summary ---
Author Organization [facility] Address [address] [place] [address] Care Team Providers Care Citrus Fruit Packer Name Role Phone Gildardo Paredes MD Primary Care Provider [phone] Soren Cash MD Unavailable Unavail able Nathaly Abernathy APRN.POURING CRANE OPERATOR Unavailable [phone] Kathrine Velasquez MD Unavailable [phone] Amira Powell Unavailable Unavailable Nato Hood Unavailable Unavailable Source Comments In the event this information is protected by the Federal Confidentiality of Alcohol and Drug AbusePatient Records regulations: The Federal rules restrict any use of the information to criminally investigate or prosecute any alcohol or drug abuse patient.[facility] Reason for Visit * Reason Onset Date Comments Refill Request 03/30/2024 Encounter Details Date Type Department Care Team (Late st Contact Info) Description 03/30/2024 Refill Hematology/Oncology [address] [place] [address] [place] [address] Soren Cash MD Refill Request Social History Tobacco Use Types Packs/Day Years Used Date Smoking Tobacco: Every Day Cigarettes 1 40 Passive Smoke Exposure: Past Smokeless Tobacco: Never Comments:down to 05/13 ppd Alcohol Use Standard Drinks/Week Comments Yes 0 (1 standard drink = 0.6 oz pur e alcohol) not weekly PHQ-2 Answer Date Recorded PHQ-2 score 3 12/22/2023 Area Deprivation Index Answer Date Yovany rded National Score (1-100), lower number is lower ri sk 64 09/16/2022 State Score (1-10), lower number is lower risk 4 09/16/2022 Data from: https://www.neighborhoodatlas.[facility]/. Last address used for calculation [address] [facility] 09/16/2022 Sex and Gender Information Value [...] Description 06/20/2025 11:00 AM EST Office Visit [facility] [address] [facility] [place] [address] LAB 06/27/2025 1:45 PM EST Office Visit Radiation Oncology [facility] [place] [address] Kathrine Velasquez MD [address] [place] [address] [place] [address] 6 month follow up documented as of this encounter Visit Diagnoses Not on filedocumented in this encounter Care Teams Citrus Fruit Packer Relationship Specialty Start Date End Date Gildardo Paredes MD [address] [place] [address] PCP - General Family Medicine 07/16/20 Soren Cash MD [address] [place] [place] [address] Physician Hematology/Oncology 08/07/20 11/04/24 Nathaly Abernathy APRN.POURING CRANE OPERATOR [address] [place] [address] Nurse Practitioner Hematology/Oncology 08/07/20 Kathrine Velasquez MD [address] [place] [address] [place] [address] Physician Radiation Oncology 08/07/20 Amira Powell LSW Research Computing Specialist 09/16/21 Nato Hood PA Family Medicine 05/24/24 documented as of this encounter
--- OUTSIDE RECORDS SUMMARY | 2025-02-06 10:12 | XMS_ITS | Encounter Summary ---
Author Organization [facility] Address [address] [place] [address] Care Team Providers Care Pallet Sorter Name Role Phone Gildardo Paredes MD Primary Care Provider [phone] Gildardo Paredes MD Unavailable Encounter Details Date Type Department Care Team (Late st Contact Info) Description 12/22/2023 Clinisync Result Encounter [facility] External Department Unsolicited [...] EDT Office Visit [facility] [address] [place] [address] Sandy Negrete, DO [address] [place] [address] 02/21/2025 2:15 PM EDT Office Visit [facility] [address] [place] [address] Cal Shepherd, DPYadira [address] [place] [address] documented as of this encounter Procedures Procedure Name Priority Date/Time Associated Diagnosis Comments MR SHOULDER RIGHT WO IV CONTRAST 12/22/2023 1:28 PM EDT documented in this encounter Results * MR shoulder right wo IV contrast (12/22/2023 1:28 PM EDT) Anatomical Region Laterality Modality Upper Extremities, Shoulder Right Magn etic Resonance 12/22/2023 1:28 PM EDT Narrative 12/22/2023 1:30 [place] [address] Magnetic Resonance Report Signed Patient: SEPIDEH FLOYD MR#: [id number] : 1960 Acct:[id number] Age/Sex: 63 / M ADM Date: 12/21/23 Loc: MRI Attending Dr: Melani Ramachandran D.O. Ordering Physician: Melani Ramachandran D.O. Date of Service: 12/21/23 Procedure(s): MR shoulder RT wo con Accession Number(s): [id number] cc: Gildardo Paredes M.D.; Melani Ramachandran D.O. The [address] [address] Patient Name: SEPIDEH FLOYD MRN: [facility]:[id number] date: 1960 Sex: M Assigned Patient Location: MRI Current Patient Location: MRI Accession/Order Number: [id number] Exam Date: 12/21/2023 10:00 Report Date: 12/22/2023 13:28 At the request of: MELANI RAMACHANDRAN Procedure: MR shoulder RT wo con EXAM: MR shoulder RT wo con HISTORY: Right Shoulder Internal Derangement M24.811 COMPARISON: 04/15/2022 TECHNIQUE: MRI images obtained with multiple sequences. MRI of the right shoulder without contrast. Sequences obtained by standard department protocol. FINDINGS: Full-thickness tear of the distal supraspinatus/infraspinatus junction measuring 1 cm in diameter (sagittal STIR image 15). Bone anchors of the proximal humerus. Subacromial, subdeltoid bursal fluid, consistent with bursitis. Mild degeneration of the acromioclavicular joint. Biceps tendon is intact and within the intertubercular groove. Teres minor is intact. Subscapularis tendon is intact. Muscle bulk of the rotator cuff is preserved. No labral detachment. No acute fracture. No acute bone marrow edema. MR/MR shoulder RT wo con IMPRESSION: 1. Full-thickness tear of the distal supraspinatus/infraspinatus junction measuring 1 cm in diameter (sagittal STIR image 15). 2. No labral detachment. 3. Biceps tendon is intact and within the intertubercular groove. Electronically authenticated by: PAPITO MYERS Date: 12/22/2023 13:28 Dictated By: Papito Myers M.D. Signed By: 12/22/23 1330 DD/ 1328 TD/TT: Replenishment Merchandising Associate: Procedure Note Radiology, Radiologist, MD - 12/22/2023 [place] [address] Magnetic Resonance Report Signed Patient: SEPIDEH FLOYD LMR#: [id number] : 1960cct:[id number] Age/Sex: 63 / MADM Date: 12/21/23 Loc: MRI Attending Dr: Melani Ramachandran D.O. Ordering Physician: Melani Ramachandran D.O. Date of Service: 12/21/23 Procedure(s): MR shoulder RT wo con Accession Number(s): [id number] cc: Gildardo Paredes M.D.; Melani Ramachandran D.O. The [place] [id number] Patient Name: SEPIDEH FLOYD MRN: [id number] date: 1960 Sex: M Assigned Patient Location: MRI Current Patient Location: MRI Accession/Order Number: [id number] Exam Date: 12/21/2023 10:00 Report Date: 12/22/2023 13:28 At the request of: MELANI STEPANIC Procedure: MR shoulder RT wo con EXAM: MR shoulder RT wo con HISTORY: Right Shoulder Internal Derangement M24.811 COMPARISON: 04/15/2022 TECHNIQUE: MRI images obtained with multiple sequences. MRI of the right shoulder without contrast. Sequences obtained by standard departmentprotocol. FINDINGS: Full-thickness tear of the distal supraspinatus/infraspinatus junction measuring 1 cm in diameter (sagittal STIR image 15). Bone anchors of the proximal humerus. Subacromial, subdeltoid bursal fluid, consistent with bursitis. Mild degeneration of the acromioclavicular joint. Biceps tendon is intact and within the intertubercular groove. Teres minor is intact. Subscapularis tendon is intact. Muscle bulk of the rotator cuff is preserved. No labral detachment. No acute fracture. No acute bone marrow edema. MR/MR shoulder RT wo con IMPRESSION: 1. Full-thickness tear of the distal supraspinatus/infraspinatus junction measuring 1 cm in diameter (sagittal STIR image 15). 2. No labral detachment. 3. Biceps tendon is intact and within the intertubercular groove. Electronically authenticated by: PAPITO MYERS Date: 12/22/2023 13:28 Dictated By: Papito Myers M.D. Signed By:12/22/23 1330 DD/ 1328 TD/TT: Replenishment Merchandising Associate: Generic External Data Provider IMG MRI PROCEDURE S Final Result documented in this encounter Visit Diagnoses Not on filedocumented in this encounter Care Teams Pallet Sorter Relationship Specialty Start Date End Date Gildardo Paredes MD [address] [place] [address] PCP - General Cardiology 09/12/22 Gildardo Paredes MD [address] [place] [address] PCP - Devoted 09/01/24 documented as of this encounter
--- OUTSIDE RECORDS SUMMARY | 2025-02-06 10:12 | XMS_ITS | Encounter Summary ---
Author Organization [facility] Address [address] [place] [address] Phone Care Team Providers Care Screen Printing Loader Unloader Name Role Phone Gildardo Paredes MD Primary Care Provider + Gildardo Paredes MD Primary Care Provider + Encounter Details Date Type Department Care Team (Late st Contact Info) Description 05/20/2022 Orders Only [facility] [address] [place] [place] [address] Conversion, Onbase Social History Tobacco Use Types [...] Description 05/05/2025 2:00 PM EST Office Visit [facility] [address] [facility] [address] [place] [address] Carmen Herrera MD [address] [place] [address] Scheduled Orders Name Type Priority Associated Diagnoses Orde r Schedule OUTSIDE LAB SCAN Lab Ordered: 05/20/2022 documented as of this encounter Visit Diagnoses Not on filedocumented in this encounter Additional Health Concerns Assessment Noted Time PHQ-9 Depression Total Score: 8 11/28/19 22 10:47 AM EDT documented as of this encounter Care Teams Screen Printing Loader Unloader Relationship Specialty Start Date End Date Gildardo Paredes MD PCP - General 05/04/99 11/16/23 Gildardo Paredes MD [address] [place] [address] PCP - General Family Medicine 11/17/23 documented as of this encounter
--- OUTSIDE RECORDS SUMMARY | 2025-02-06 10:12 | XMS_ITS | Clinical Summary ---
Author Organization [facility] Address [address] [place] [address] Phone Care Team Providers Care Development Associate Name Role Phone Gildardo Paredes MD Primary Care Provider + Allergies No known active allergies Medications albuterol 90 mcg/actuation inhaler Inhale 2 puffs 3 times a day. Active albuterol 2.5 mg /3 mL (0.083 %) nebulizer solution Inhale. A ctive aspirin 81 mg EC tablet Take 1 tablet (81 mg) by mouth once daily. Active buPROPion XL (Wellbutrin XL) 300 mg 24 hr tablet Take 1 tablet (300 mg) by mouth once daily. Active DULoxetine (Cymbalta) [address] capsule Take 1 capsule (30 mg) by mouth once daily. Active fluticasone furoate-vilanteroL (Breo Ellipta) 100-25 mcg/dose inhaler Inhale. Active ipratropium-albuter oL (Duo-Neb) 0.5-2.5 mg/3 mL nebulizer solution Inhale. A ctive metoprolol succinate XL (Toprol-XL) 50 mg 24 hr tablet Take 1 tablet (50 mg) by mouth once daily. Active oxyCODONE-acetamino phen (Percocet) 5-325 mg tablet Take 1 tablet by mouth every 6 hours if needed. Active potassium chloride CR 10 mEq ER tablet Take 1 tablet (10 mEq) by mouth once daily. Active topiramate (Topamax) 50 mg tablet Take 1 tablet (50 mg) by mouth 2 times a day. Active zolpidem (Ambien) 10 mg tablet Take 1 tablet (10 mg) by mouth once daily at bedtime. Active atorvastatin (Lipitor) 20 mg tablet Take 1 tablet (20 mg) by mouth once daily. Active celecoxib (CeleBREX) 200 mg capsule Take 1 capsule (200 mg) by mouth 2 times a day. Active clopidogrel (Plavix) 75 mg tabletIndications:P VD (peripheral vascular disease),Hyperlipid emia, unspecified hyperlipidemia type,TIA (transient ischemic attack) Take 1 tablet (75 mg) by mouth once daily. 90 tablet 3 12/17/2024 3:31 PM EDT 09/13/19 Active Active Problems Problem Noted Date Diagnosed Date Cancer (Multi) 11/17/2023 BMI less than 19,adult 11/17/2023 Hyperlipidemia 05/06/2023 Abnormal EKG 04/28/2023 Current smoker 04/28/2023 Depression 04/28/2023 Dyspnea 04/28/2023 PVD (peripheral vascular disease) 04/28/2023 TIA (transient ischemic attack) 04/28/2023 Social History Tobacco Use Types Packs/Day Years Used Date Smoking Tobacco: Every Day Cigarettes Smokeless Tobacco: Never Tobacco Cessation:Ready to Q uit: No; Counseling Given: Yes Alcohol Use Standard Drinks/Week Comments Never 0 (1 standard drink = 0.6 oz pur e alcohol) PHQ-2 Answer Date Recorded Patient Health Questionnaire-2 Score 2 11/27/2021 Sex and Gender Information Value Date Recorded Sex Assigned at Not on file Legal Sex Male 9:44 AM EST Gender Identity Not on file Sexual Orientation Not on file Last Filed Vital Signs Vital Sign Reading Time Taken Comments Blood Pressure 120/70 09/12/2024 1:17 PM EDT Pulse 86 09/12/2024 1:17 PM EDT Temperature - - Respiratory Rate - - Oxygen Saturation - - Inhaled Oxygen Concentration - - Weight 60.3 kg (133 lb) 09/12/2024 1:17 PM EDT Height 177.8 cm (5' 10 ) 09/12/2024 1:17 PM EDT Body Mass Index 19.08 09/12/2024 1:17 PM EDT Plan of Treatment Upcoming Encounters Date Type Department Care Team (Late st Contact Info) Description 05/05/2025 2:00 PM EST Office Visit [facility] [address] [facility] [address] [place] [address] Carmen Herrera MD [address] [facility] [address] [place] [address] Health Maintenance Due Date Last Done Comments CT Colonography 1960 Colonoscopy 1960 Colorectal Cancer Screening 1960 FIT-DNA (Cologuard) 1960 FIT 1960 HIV Screening 1960 Lipid Panel 1960 Medicare Annual Wellness Visit (AWV) 1960 Sigmoidoscopy 1960 MMR Vaccines (1 of 1 - Standard series) 1961 Diabetes Screening 1978 Hepatitis C Screening 1978 PSA Prostate Cancer Screening 2005 Pneumococcal Vaccine (3 of 3 - PCV20 or PCV21) 01/31/2023 01/31/2018, 04/06/2017 COVID-19 Vaccine (4 - season) 2025 05/27/2023, 06/12/2022, 12/20/2020 Influenza Vaccine (#1) 2025 , 05/27/2023, 02/18/2022, Additional history exists DTaP/Tdap/Td Vaccines (3 - Td or Tdap) 05/31/2034 05/31/2024, 05/14/2018 HIB Vaccines Aged Out 01/31/2018 No longer eligi ble based on patient's age to complete this topic Meningococcal Vaccine Aged Out 01/31/2018 No gunjan jose eligible based on patient's age to complete this topic RSV High Risk: (Elderly (60+) or Population) Completed 07/22/2023 Zoster Vaccines Completed 07/22/2023, 05/14/2018 HPV Vaccines Aged Out No longer eligi ble based on patient's age to complete this topic Hepatitis A Vaccines Aged Out No long er eligible based on patient's age to complete this topic Hepatitis B Vaccines Aged Out No long er eligible based on patient's age to complete this topic IPV Vaccines Aged Out No longer eligi ble based on patient's age to complete this topic Rotavirus Vaccines Aged Out No longer eligible based on patient's age to complete this topic Insurance [facility] Care Teams Development Associate Relationship Specialty Start Date End Date Gildardo Paredes MD [address] [place] [address] PCP - General Family Medicine 11/17/23
--- OUTSIDE RECORDS SUMMARY | 2025-02-06 10:12 | XMS_ITS | Encounter Summary ---
Author Organization [facility] Address [address] [place] [address] Care Team Providers Care Residence Hall Director Name Role Phone Gildardo Paredes MD Primary Care Provider [phone] Gildardo Paredes MD Unavailable Encounter Details Date Type Department Care Team (Late st Contact Info) Description 07/26/2024 Orders Only [facility] [address] [facility] [place] [address] Mac De La Torre MD [address] [place] [address] Social History Tobacco Use Types Packs/Day Years [...] PM EDT Office Visit [facility] [address] [place] [address] Sandy Negrete, DO [address] [place] [address] 02/21/2025 2:15 PM EDT Office Visit [facility] [address] [place] [address] Cal Shepherd DPM [address] [place] [address] documented as of this encounter Procedures Procedure Name Priority Date/Time Associated Diagnosis Comments ECHOCARDIOGRAM WITH DOPPLER IF INDICATED Routine 07/26/2024 10:38 AM EDT documented in this encounter Results * ECHOCARDIOGRAM WITH DOPPLER IF INDICATED (07/26/2024 10:38 AM EDT) Anatomical Region Laterality Modality Radiographic Sophie ging us Mac De La Torre MD IMG XR PROCEDURES Final Result documented in this encounter Visit Diagnoses Not on filedocumented in this encounter Additional Health Concerns Assessment Noted Time PHQ-9 Depression Total Score: 5 04/12/20 24 1:00 PM EST documented as of this encounter Care Teams Residence Hall Director Relationship Specialty Start Date End Date Gildardo Paredes MD [address] [place] [address] PCP - General Cardiology 09/12/22 Gildardo Paredes MD [address] [place] [address] PCP - Devoted 09/01/24 documented as of this encounter
--- OUTSIDE RECORDS SUMMARY | 2025-02-06 10:12 | XMS_ITS | Encounter Summary ---
Author Organization [facility] Address [address] [place] [address] Care Team Providers Care Imaging Aide Name Role Phone Gildardo Lacy MD Primary Care Provider [phone] Gildardo Lacy MD Unavailable Encounter Details Date Type Department Care Team (Late st Contact Info) Description 04/28/2024 Clinisync Result Encounter [facility] External Department Unsolicited Gildardo Lacy MD [address] [place] [phone] Social History Tobacco Use Types Packs/Day Years [...] EDT Office Visit [facility] [address] [place] [address] Sandy Negrete, DO [address] [place] [address] 02/21/2025 2:15 PM EDT Office Visit [facility] [address] [facility] [place] [address] Cal Shepherd, DPM [address] [place] [address] documented as of this encounter Procedures Procedure Name Priority Date/Time Associated Diagnosis Comments XR FOOT LT 2 VWS 04/28/2024 7:51 AM EST documented in this encounter Results * XR FOOT LT 2 VWS (04/28/2024 7:51 AM EST) Anatomical Region Laterality Modality Radiographic Sophie ging 04/28/2024 7:51 AM EST Narrative 04/28/2024 7:54 AM EST [address] [address] XRay Report Signed Patient: SEPIDEH FLOYD MR#: [id number] : 1960 Acct:[id number] Age/Sex: 63 / M ADM Date: 04/25/24 Loc: [facility] Attending Dr: Gildardo Lacy M.D. Ordering Physician: Gildardo Lacy M.D. Date of Service: 04/25/24 Procedure(s): XR foot LT 2V Accession Number(s): [id number] cc: Gildardo Lacy M.D. [address] [address] Patient Name: SEPIDEH FLOYD MRN: [id number] date: 1960 Sex: M Assigned Patient Location: RAD Current Patient Location: Accession/Order Number: [id number] Exam Date: 04/25/2024 12:15 Report Date: 04/28/2024 07:51 At the request of: GILDARDO LACY Procedure: XR foot LT 2V PROCEDURE: XR foot LT 2V HISTORY: Left Foot Pain COMPARISON: XR foot left 12/15/2019 FINDINGS: BONES:Transverse fractures through the neck of second, third, fourth, and 5th metatarsals with medial apex angulation and partial osseous healing. No significant flattening of plantar arch. SOFT TISSUES:No visible soft tissue swelling. EFFUSION:None visible. OTHER: Negative. XR/XR foot LT 2V IMPRESSION: 1. Fractures involving the necks of the second through 5th metatarsals with partial osseous healing favoring subacute to early remote fractures. Findings are new compared 12/15/2019. Electronically authenticated by: FAISAL BALLESTEROS Date: 04/28/2024 07:51 Dictated By: Faisal Ballesteros M.D. Signed By: 04/28/24753 DD/ 0 TD/TT: Hide Splitter: Procedure Note Radiology, Radiologist, - 04/28/2024 [place] [address] XRay Report Signed Patient: SEPIDEH FLOYD LMR#: [id number] : 1960cct:[id number] Age/Sex: 63 / MADM Date: 04/25/24 Loc: [facility] Attending Dr: Gildardo Lacy M.D. Ordering Physician: Gildardo Lacy M.D. Date of Service: 04/25/24 Procedure(s): XR foot LT 2V Accession Number(s): [id number] cc: Gildardo Lacy M.D. [address] [place] [address] Patient Name: SEPIDEH FLOYD MRN: [facility]:[id number] date: 1960 Sex: M Assigned Patient Location: [facility] Current Patient Location: Accession/Order Number: [id number] Exam Date: 04/25/2024 12:15 Report Date: 04/28/2024 07:51 At the request of: GILDARDO LACY Procedure: XR foot LT 2V PROCEDURE: XR foot LT 2V HISTORY: Left Foot Pain COMPARISON: XR foot left 12/15/2019 FINDINGS: BONES:Transverse fractures through the neck of second, third, fourth, and5th metatarsals with medial apex angulation and partial osseous healing. No significant flattening of plantar arch. SOFT TISSUES:No visible soft tissue swelling. EFFUSION:None visible. OTHER: Negative. XR/XR foot LT 2V IMPRESSION: 1. Fractures involving the necks of the second through 5th metatarsalswith partial osseous healing favoring subacute to early remote fractures.Findings are new compared 12/15/2019. Electronically authenticated by: FAISAL BALLESTEROS Date: 04/28/2024 07:51 Dictated By: Faisal Ballesteros M.D. Signed By:04/28/24 0754 DD/ 0751 TD/TT: Hide Splitter: Gildardo Lacy MD IMG XR PROCEDURES Final Result documented in this encounter Visit Diagnoses Not on filedocumented in this encounter Additional Health Concerns Assessment Noted Time PHQ-9 Depression Total Score: 5 04/12/20 24 1:00 PM EST documented as of this encounter Care Teams Imaging Aide Relationship Specialty Start Date End Date Gildardo Lacy MD [address] [place] [address] PCP - General Cardiology 09/12/22 Gildardo Lacy MD [address] [place] [address] PCP - Devoted 09/01/24 documented as of this encounter
--- OUTSIDE RECORDS SUMMARY | 2025-02-06 10:12 | XMS_ITS | Encounter Summary ---
Author Organization [facility] Address [address] [place] [address] Care Team Providers Care Sales Manager [place] Name Role Phone Gildardo Lacy MD Primary Care Provider [phone] Gildardo Lacy MD Unavailable Encounter Details Date Type Department Care Team (Late st Contact Info) Description 07/01/2023 Clinisync Result Encounter [facility] External Department Unsolicited Gildardo Lacy MD [address] [place] [address] Social History Tobacco Use Types Packs/Day Years [...] EDT Office Visit [facility] [address] [place] [address] Sandy Negrete, DO [address] [place] [address] 02/21/2025 2:15 PM EDT Office Visit [facility] [address] [place] [address] Cal Shepherd DPM [address] [place], [place] [address] documented as of this encounter Procedures Procedure Name Priority Date/Time Associated Diagnosis Comments VASC US CAROTID ARTERY DUPLEX BILATERAL 07/01/2023 2:16 PM EST documented in this encounter Results * Vascular US carotid artery duplex bilateral (07/01/2023 2:16 PM EST) Anatomical Region Laterality Modality Neck Ultrasound 07/01/2023 2:16 PM EST Narrative 07/01/2023 2:18 [place] [address] Ultrasound Report Signed Patient: SEPIDEH FLOYD MR#: [id number] : 1960 Acct:[id number] Age/Sex: 62 / M ADM Date: 07/01/23 Loc: [facility] Attending Dr: Gildardo Lacy M.D. Ordering Physician: Gildardo Lacy M.D. Date of Service: 07/01/23 Procedure(s): US carotid duplex BI Accession Number(s): [id number] cc: Gildardo Lacy M.D. [address] [address] Patient Name: SEPIDEH FLOYD MRN: [id number] date: 1960 Sex: M Assigned Patient Location: [facility] Current Patient Location: [facility] Accession/Order Number: [id number] Exam Date: 07/01/2023 13:15 Report Date: 07/01/2023 14:16 At the request of: GILDARDO LACY Procedure: US carotid duplex BI EXAMINATION: US carotid duplex BI HISTORY: Bilateral Carotid Bruit, Abnormal Ankle Brachial Index COMPARISON: No relevant comparison available. TECHNIQUE: Duplex Doppler ultrasound analysis of carotid and vertebral arteries. . Bilateral carotid arterial duplex examination was performed using B-mode, color flow and spectral analysis. Carotid stenosis is reported according to validated velocity parameters, similar to NASCET criteria. FINDINGS: RIGHT CAROTID ARTERY Mild atherosclerotic plaque Subclavian: PSV: 109.7 cm/s cm/s EDV: 0.0 cm/s cm/s CCA: Prox: PSV: 79.0 cm/s cm/s EDV: 19.2 cm/s cm/s Mid: PSV: 60.3 cm/s cm/s EDV: 17.5 cm/s cm/s Distal: PSV: 52.6 cm/s cm/s EDV: 15.3 cm/s cm/s BULB: PSV: 53.7 cm/s cm/s EDV: 19.7 cm/s cm/s ICA: Prox: PSV: 54.8 cm/s cm/s EDV: 25.2 cm/s cm/s Mid: PSV: 80.6 cm/s cm/s EDV: 43.2 cm/s cm/s Distal: PSV: 150.7 cm/s cm/s EDV: 67.1 cm/s cm/s ECA: PSV: 180.8 cm/s cm/s EDV: 24.8 cm/s cm/s VERTEBRAL: PSV: 82.2 cm/s cm/s EDV: 32.1 cm/s cm/s, antegrade ICA/CCA ratio: PSV: 1.9 EDV: 3.5 LEFT CAROTID ARTERY Extensive atherosclerotic plaque, occlusion of the ICA. 79% reduction in the mid CCA Subclavian: PSV: 153.1 cm/s cm/s EDV: 16.0 cm/s CCA: Prox: PSV: 148.4 cm/s cm/s EDV: 18.3 cm/s Mid: PSV: 129.8 cm/s cm/s EDV: 16.0 cm/s Distal: PSV: 141.4 cm/s cm/s EDV: 11.4 cm/s BULB: PSV: 97.3 cm/s cm/s EDV: 13.7 cm/s ICA: Prox: PSV: 52.5 cm/s cm/s EDV: 8.0 cm/s Mid: PSV: Occluded Distal: PSV: Occluded ECA: PSV: 122.9 cm/s cm/s EDV: 25.3 cm/s VERTEBRAL: PSV: 127.5 cm/s cm/s EDV: 41.6 cm/s, antegrade ICA/CCA ratio: PSV: 0.7 EDV: 0.7 US/US carotid duplex BI IMPRESSION: 0-49% flow stenosis right internal carotid artery Occlusion of the left internal carotid artery with 79% flow stenosis in the left CCA Spectral Doppler US Thresholds (Reference: Jesse EG, et al. Radiology 2000; 214:247-252) Stenosis (%) PSV (cm/sec) VICA/VCCA 0-49 <150 <2.5 50-69 150-225 2.5-4.0 >70 >225 >4.0 Electronically authenticated by: ALBINA DIANE Date: 07/01/2023 14:16 Dictated By: Albina Diane M.D. Signed By: 07/01/23 1418 DD/ 1416 TD/TT: Operating Room Rn: Procedure Note Radiology, Radiologist, MD - 07/01/2023 [place] [address] Ultrasound Report Signed Patient: SEPIDEH FLOYD LMR#: [id number] : 1960cct:[id number] Age/Sex: 62 / MADM Date: 07/01/23 Loc: [facility] Attending Dr: Gildardo Lacy M.D. Ordering Physician: Gildardo Lacy M.D. Date of Service: 07/01/23 Procedure(s): US carotid duplex BI Accession Number(s): [id number] cc: Gildardo Lacy M.D. [address] [place] [id number] Patient Name: SEPIDEH FLOYD MRN: [id number] date: 1960 Sex: M Assigned Patient Location: CARD Current Patient Location: CARD Accession/Order Number: [id number] Exam Date: 07/01/2023 13:15 Report Date: 07/01/2023 14:16 At the request of: GILDARDO LACY Procedure: US carotid duplex BI EXAMINATION: US carotid duplex BI HISTORY: Bilateral Carotid Bruit, Abnormal Ankle Brachial Index COMPARISON: No relevant comparison available. TECHNIQUE: Duplex Doppler ultrasound analysis of carotid and vertebral arteries. . Bilateral carotid arterial duplex examination was performedusing B-mode, color flow and spectral analysis. Carotid stenosis is reported according to validated velocity parameters, similar to NASCET criteria. FINDINGS: RIGHT CAROTID ARTERY Mild atherosclerotic plaque Subclavian: PSV: 109.7 cm/s cm/s EDV: 0.0 cm/s cm/s CCA: Prox: PSV: 79.0 cm/s cm/s EDV: 19.2 cm/s cm/s Mid: PSV: 60.3 cm/s cm/s EDV: 17.5 cm/s cm/s Distal: PSV: 52.6 cm/s cm/s EDV: 15.3 cm/s cm/s BULB: PSV: 53.7 cm/s cm/s EDV: 19.7 cm/s cm/s ICA: Prox: PSV: 54.8 cm/s cm/s EDV: 25.2 cm/s cm/s Mid: PSV: 80.6 cm/s cm/s EDV: 43.2 cm/s cm/s Distal: PSV: 150.7 cm/s cm/s EDV: 67.1 cm/s cm/s ECA: PSV: 180.8 cm/s cm/s EDV: 24.8 cm/s cm/s VERTEBRAL: PSV: 82.2 cm/s cm/s EDV: 32.1 cm/s cm/s, antegrade ICA/CCA ratio: PSV: 1.9 EDV: 3.5 LEFT CAROTID ARTERY Extensive atherosclerotic plaque, occlusion of the ICA. 79% reduction inthe mid CCA Subclavian: PSV: 153.1 cm/s cm/s EDV: 16.0 cm/s CCA: Prox: PSV: 148.4 cm/s cm/s EDV: 18.3 cm/s Mid: PSV: 129.8 cm/s cm/s EDV: 16.0 cm/s Distal: PSV: 141.4 cm/s cm/s EDV: 11.4 cm/s BULB: PSV: 97.3 cm/s cm/s EDV: 13.7 cm/s ICA: Prox: PSV: 52.5 cm/s cm/s EDV: 8.0 cm/s Mid: PSV: Occluded Distal: PSV: Occluded ECA: PSV: 122.9 cm/s cm/s EDV: 25.3 cm/s VERTEBRAL: PSV: 127.5 cm/s cm/s EDV: 41.6 cm/s, antegrade ICA/CCA ratio: PSV: 0.7 EDV: 0.7 US/US carotid duplex BI IMPRESSION: 0-49% flow stenosis right internal carotid artery Occlusion of the left internal carotid artery with 79% flow stenosis inthe left CCA Spectral Doppler US Thresholds (Reference: Jesse EG, et al. [id number]; 214:247-252) Stenosis (%) PSV (cm/sec) VICA/VCCA 0-49 <150 <2.5 50-69 150-225 2.5-4.0 >70 >225 >4.0 Electronically authenticated by: ALBINA DIANE Date: 07/01/2023 14:16 Dictated By: Albina Diane M.D. Signed By:07/01/23 1418 DD/ 1416 TD/TT: Operating Room Rn: us Gildardo Lacy MD IMG US PROCEDURES Final Result documented in this encounter Visit Diagnoses Not on filedocumented in this encounter Care Teams Sales Manager [place] Relationship Specialty Start Date End Date Gildardo Lacy MD [address] [place] [address] PCP - General Cardiology 09/12/22 Gildardo Lacy MD [address] [place] [address] PCP - Devoted 09/01/24 documented as of this encounter
--- OUTSIDE RECORDS SUMMARY | 2025-02-06 10:12 | XMS_ITS | Encounter Summary ---
Author Organization [facility] Address [address] [place] [address] Care Team Providers Care Glass Ribbon Machine Operator Name Role Phone Gildardo Paredes MD Primary Care Provider [phone] Gildardo Paredes MD Unavailable Encounter Details Date Type Department Care Team (Late st Contact Info) Description 09/30/2023 Orders Only [facility] [address] [place] [address] Malia Hill MD [address] [place] [address] Social History Tobacco Use Types Packs/Day Years [...] EDT Office Visit [facility] [address] [place] [phone] Sandy Negrete, DO [address] [place] [address] 02/21/2025 2:15 PM EDT Office Visit [facility] [address] [place] [address] Cal Shepherd DPM [address] [place], [place] [address] documented as of this encounter Procedures Procedure Name Priority Date/Time Associated Diagnosis Comments XR CHEST 1 VIEW Routine 09/30/2023 1:39 PM EDT documented in this encounter Results * XR chest 1 view (09/30/2023 1:39 PM EDT) Anatomical Region Laterality Modality Chest Radiographic Sophie ging Malia Hill MD IMG XR PROCEDURES Final Result documented in this encounter Visit Diagnoses Not on filedocumented in this encounter Care Teams Glass Ribbon Machine Operator Relationship Specialty Start Date End Date Gildardo Paredes MD [address] [place] [address] PCP - General Cardiology 09/12/22 Gildardo Paredes MD [address] [place] [address] PCP - Devoted 09/01/24 documented as of this encounter
--- OUTSIDE RECORDS SUMMARY | 2025-02-06 10:12 | XMS_ITS | Encounter Summary ---
Author Organization [facility] Address [address] [place] [address] Care Team Providers Care Drill Rig Operator Name Role Phone Gildardo Paredes MD Primary Care Provider [phone] Gildardo Paredes MD Unavailable Encounter Details Date Type Department Care Team (Late st Contact Info) Description 10/25/2022 Abstract [facility] [address] [place] [address] Nato Hood, PA [address] [facility] [address] Social History Tobacco Use Types Packs/Day Years Used Date Smoking Tobacco: Every Day Cigarettes Tobacco Cessation:Ready to Q uit: Not Asked; Counseling Given: Not Answered Comments:11-20 cigarettes a day Alcohol Use Standard [...] EDT Office Visit [facility] [address] [place] [address] Sandy Negrete, DO [address] [place] [address] 02/21/2025 2:15 PM EDT Office Visit [facility] [address] [place] [address] Cal Shepherd DPM [address] [place], [place] [address] documented as of this encounter Visit Diagnoses Not on filedocumented in this encounter Care Teams Drill Rig Operator Relationship Specialty Start Date End Date Gildardo Paredes MD [address] [place] [address] PCP - General Cardiology 09/12/22 Gildardo Paredes MD [address] [place] [address] PCP - Devoted 09/01/24 documented as of this encounter
--- OUTSIDE RECORDS SUMMARY | 2025-02-06 10:12 | XMS_ITS | Encounter Summary ---
Author Organization [facility] Address [address] [place] [address] Care Team Providers Care House Principal Name Role Phone Gildardo Paredes MD Primary Care Provider [phone] Gildardo Paredes MD Unavailable Encounter Details Date Type Department Care Team (Late st Contact Info) Description 12/26/2022 Abstract [facility] [address] [place] [address] Nato Hood, PA [address] [facility] [place] [address] Social History Tobacco Use Types [...] EDT Office Visit [facility] [address] [place] [address] Sandy Negrete, DO [address] [place] [address] 02/21/2025 2:15 PM EDT Office Visit [facility] [address] [place] [address] Cal Shepherd, DPM [address] [place], [place] [address] documented as of this encounter Visit Diagnoses Not on filedocumented in this encounter Care Teams House Principal Relationship Specialty Start Date End Date Gildardo Paredes MD [address] [place] [address] PCP - General Cardiology 09/12/22 Gildardo Paredes MD [address] [place] [address] PCP - Devoted 09/01/24 documented as of this encounter
--- OUTSIDE RECORDS SUMMARY | 2025-02-06 10:12 | XMS_ITS | Encounter Summary ---
Author Organization [facility] Address [address] [place] [address] Care Team Providers Care Occasional Babysitter Name Role Phone Gildardo Paredes MD Primary Care Provider [phone] Gildardo Paredes MD Unavailable Encounter Details Date Type Department Care Team (Late st Contact Info) Description 06/17/2024 Orders Only [facility] [address] [place] [address] Gildardo Paredes MD [address] [place] [address] [place] [address] Social History Tobacco Use Types Packs/Day Years [...] 02/15/2025 3:00 PM EDT Office Visit [facility] [address] [place] [address] Sandy Negrete, DO [address] [place] [address] 02/21/2025 2:15 PM EDT Office Visit [facility] [address] [place] [address] Cal Shepherd, DPYadira [address] [place], [place] [address] documented as of this encounter Visit Diagnoses Not on filedocumented in this encounter Additional Health Concerns Assessment Noted Time PHQ-9 Depression Total Score: 5 04/12/20 24 1:00 PM EST documented as of this encounter Care Teams Occasional Babysitter Relationship Specialty Start Date End Date Gildardo Paredes MD [address] [place] [address] [place] [address] PCP - General Cardiology 09/12/22 Gildardo Paredes MD [address] [place] [address] [place] [address] PCP - Devoted 09/01/24 documented as of this encounter
--- OUTSIDE RECORDS SUMMARY | 2025-02-06 10:12 | XMS_ITS | Encounter Summary ---
Author Organization [facility] Address [address] [place] [address] Care Team Providers Care Brush Head Maker Name Role Phone Gildardo Paredes MD Primary Care Provider [phone] Gildardo Paredes MD Unavailable Encounter Details Date Type Department Care Team (Late st Contact Info) Description 04/03/2023 Abstract [facility] [address] [place] [address] Adolfo Joyce, PT Social History Tobacco Use Types Packs/Day Years Used Date Smoking Tobacco: Every Day Cigarettes Smokeless Tobacco: Never Tobacco Cessation:Ready to Q uit: Not Asked; [...] EDT Office Visit [facility] [address] [place] [address] Sandy Negrete, DO [address] [place] [address] 02/21/2025 2:15 PM EDT Office Visit [facility] [address] [place] [address] Cal Shepherd, DPM [address] [place], [place] [address] documented as of this encounter Visit Diagnoses Not on filedocumented in this encounter Care Teams Brush Head Maker Relationship Specialty Start Date End Date Gildardo Paredes MD [address] [place] [address] PCP - General Cardiology 09/12/22 Gildardo Paredes MD [address] [place] [address] PCP - Devoted 09/01/24 documented as of this encounter
--- OUTSIDE RECORDS SUMMARY | 2025-02-06 10:12 | XMS_ITS | Encounter Summary ---
Author Organization [facility] Address [address] [place] [address] Care Team Providers Care Floor Layer Helper Name Role Phone Gildardo Paredes MD Primary Care Provider [phone] Gildardo Paredes MD Unavailable Encounter Details Date Type Department Care Team (Late st Contact Info) Description 05/31/2024 Orders Only [facility] [address] [facility] [address] [place] [address] Jake Lyon MD [address] [place] [address] Social History Tobacco Use Types Packs/Day Years [...] EDT Office Visit [facility] [address] [place] [address] Sandy Negrete DO [address] [place] [address] 02/21/2025 2:15 PM EDT Office Visit [facility] [address] [place] [address] Cal Shepherd, DPM [address] [place], [place] [address] documented as of this encounter Procedures Procedure Name Priority Date/Time Associated Diagnosis Comments XR WRIST LT MIN 3V Routine 05/31/2024 9:[address] HEAD OR BRAIN W/ & W/O CONTRAST Routine 05/31/2024 9:36 AM EST documented in this encounter Results * XR WRIST LT MIN 3V (05/31/2024 9:50 AM EST) Anatomical Region Laterality Modality Radiographic Sophie ging Jake Lyon MD IMG XR PROCEDURES Final Resul t * CT HEAD OR BRAIN W/ & W/O CONTRAST (05/31/2024 9:36 AM EST) Anatomical Region Laterality Modality Radiographic Sophie ging Jake Lyon MD IMG XR PROCEDURES Final Resul t documented in this encounter Visit Diagnoses Not on filedocumented in this encounter Additional Health Concerns Assessment Noted Time PHQ-9 Depression Total Score: 5 04/12/20 24 1:00 PM EST documented as of this encounter Care Teams Floor Layer Helper Relationship Specialty Start Date End Date Gildardo Paredes MD [address] [place] [address] PCP - General Cardiology 09/12/22 Gildardo Paredes MD [address] [place] [address] PCP - Devoted 09/01/24 documented as of this encounter
--- NOTE | 2025-02-06 10:15 | CT_ITS ---
CT/CT lumbar spine wo con IMPRESSION: Chronic appearing compression deformity L1 vertebral body. No acute bony process. Endplate and facet joint degenerative changes without significant disc height loss. Bilateral nephrolithiasis. Impression dictated by: Leigh Blood Jr.OVinod 02/06/2025 10:50 AM Dictation Location: [facility] Electronically authenticated by: [id number] Y Date: 02/06/2025 10:50
--- NOTE | 2025-02-06 10:16 | ED.BACK1 ---
HPI HPI - Back Pain/Injury General Chief Complaint: Back Pain/Injury Stated Complaint: WEAKNESS Time Seen by Provider: 02/06/25 10:10 Source: patient Mode of arrival: Wheelchair History of Present Illness HPI Narrative: cc - low back pain Pt complains of low back pain that is worse over the last week. He localizes it to the lumbosacral region. No flank pain No urinary symptoms,. No blood in urine or stool. No fever or chills. No abdominal pain. He said that he has been experiencing the same pain for many years . He said that Dr Paredes prescribed oxycodone for the pain and he has been taking that without much improvement. He said that he had talked to Dr Paredes about a referral to Dr Sheppard - pain management - for further evaluation. On questioning he denied any urinary or bladder incontinence, he denied any LE numbness, tingling or weakness. He denied any pelvic/saddle anesthesia/paresthesia. Related Data Home Medications ?Medication ?Instructions ?Recorded ?Confirmed omeprazole 40 mg capsule,delayed 40 mg PO DAILY 10/14/22 02/06/25 release zolpidem 10 mg tablet 10 mg PO DAILY PRN insomnia 10/14/22 02/06/25 aspirin 81 mg tablet,delayed 81 mg PO DAILY 07/23/24 02/06/25 release (Adult Low Dose Aspirin) atorvastatin 20 mg tablet 20 mg PO DAILY 07/25/24 02/06/25 topiramate 100 mg tablet (Topamax) 100 mg PO DAILY 07/25/24 02/06/25 fluticasone fur. 100 mcg-umeclid 1 inh inhalation DAILY 02/06/25 02/06/25 62.5 mcg-vilant 25 mcg inhalat.powder (Trelegy Ellipta) oxycodone-acetaminophen 5 mg-325 1 tab PO QID PRN pain 02/06/25 02/06/25 mg tablet Previous Rx's ?Medication ?Instructions ?Recorded clopidogrel 75 mg tablet 75 mg PO QD #30 tabs 07/26/24 albuterol sulfate 90 mcg/actuation 2 inh inhalation Q4H PRN shortness 09/01/24 aerosol inhaler of breath or wheezing #8.5 grams methocarbamol 750 mg tablet 750 mg PO Q6H PRN pain #30 tabs 02/06/25 methylprednisolone 4 mg tablets in 4 mg PO DAILY #21 ea 02/06/25 a dose pack (Medrol (Suresh)) Allergies Allergy/AdvReac Type Severity Reaction Status Date / Time No Known Drug Allergies Allergy Verified 08/30/24 14:57 Opioid HPI Opioid Management Most Recent Opioid Data: Last Pain Scale 5 09/01/24, 16:00 Last ORT Total Score 0 08/30/24, 17:23 Last ORT Risk Category Low Risk 08/30/24, 17:23 Ur Phencyclidine Scrn, (NEGATIVE) Negative 07/23/24, 19:50 PFSH [facility] Medical History (Updated 02/06/25 @ 11:14 by Luther Koroma) Acute hypoxic respiratory failure ?J96.01 - Acute respiratory failure with hypoxia (ICD-10) Cerebrovascular disease ?I67.9 - Cerebrovascular disease, unspecified (ICD-10) Benign essential hypertension ?I10 - Essential (primary) hypertension (ICD-10) Asthma exacerbation in COPD ?J44.1 - Chronic obstructive pulmonary disease with (acute) exacerbation (ICD-10) Hypoxemia ?R09.02 - Hypoxemia (ICD-10) Acute ischemic right BONY stroke ?I63.521 - Cerebral infarction due to unspecified occlusion or stenosis of right anterior cerebral artery (ICD-10) Peripheral arterial disease ?I73.9 - Peripheral vascular disease, unspecified (ICD-10) Occlusion of left internal carotid artery ?I65.22 - Occlusion and stenosis of left carotid artery (ICD-10) COPD (chronic obstructive pulmonary disease) ?J44.9 - Chronic obstructive pulmonary disease, unspecified (ICD-10) Chemotherapy-induced neuropathy ?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 - Drug-induced polyneuropathy (ICD-10) ?T45.1X5A - Adverse effect of antineoplastic and immunosuppressive drugs, initial encounter (ICD-10) Macrocytic anemia ?D53.9 - Nutritional anemia, unspecified (ICD-10) Hyponatremia ?E87.1 - Hypo-osmolality and hyponatremia (ICD-10) Hypomagnesemia ?E83.42 - Hypomagnesemia (ICD-10) Bilateral carotid artery stenosis ?I65.23 - Occlusion and stenosis of bilateral carotid arteries (ICD-10) Pneumonia ?J18.9 - Pneumonia, unspecified organism (ICD-10) Contusion of multiple sites ?T07.XXXA - Unspecified multiple injuries, initial encounter (ICD-10) History of hypertension ?Z86.79 - Personal history of other diseases of the circulatory system (ICD-10) History of throat cancer ?Z85.819 - Personal history of malignant neoplasm of unspecified site of lip, oral cavity, and pharynx (ICD-10) Hx of supraventricular tachycardia ?Z86.79 - Personal history of other diseases of the circulatory system (ICD-10) History of emphysema ?J43.9 - Emphysema, unspecified (ICD-10) History of arthritis ?Z87.39 - Personal history of other diseases of the musculoskeletal system and connective tissue (ICD-10) Hx of TIA (transient ischemic attack) and stroke ?Z86.73 - Personal history of transient ischemic attack (TIA), and cerebral infarction without residual deficits (ICD-10) History of COPD ?Z87.09 - Personal history of other diseases of the respiratory system (ICD-10) Surgical History Hx of cholecystectomy ?Z90.49 - Acquired absence of other specified parts of digestive tract (ICD-10) 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 - Acquired absence of spleen (ICD-10) Hx of hernia repair ?Z98.890 - Other specified postprocedural states (ICD-10) ?Z87.19 - Personal history of other diseases of the digestive system (ICD-10) Social History (Updated 07/23/24 @ 23:38 by Magalys Meeks RN) Within the past year, how often did you have a drink containing alcohol: 4 or more times a week Within the past year, how many standard drinks containing alcohol did you have on a typical day: 10 or more Within the past year, how often did you have six or more drinks on one occasion: daily or almost daily Total score: 12 Score interpretation: A score of 4 or more indicates drinking is likely to affect patient's safety. Smoking status: Heavy tobacco smoker Highest level of school completed/degree received: some college, no degree Do you want help with school or training: No Little interest or pleasure in doing things: not at all Feeling down, depressed, or hopeless: not at all Exam Narrative Exam Narrative: General:Alert, no acute distress, patient resting comfortably Afebrile Skin:warm, intact, no pallor noted Head:Normocephalic, atraumatic Eye:Normal conjunctiva Respiratory:No acute distress Abdomen:Normal bowel sounds, soft, nontender, no masses detected.No rebound, guarding, or rigidity noted. Back:inspection of the back shows no obvious deformity, no swelling, no ecchymosis, contusion, abrasion, swelling, erythema, fluctuance or induration.Tenderness noted throughout the lumbosacral area. Straight leg raise on left is positive.Straight leg raise on right is positive. No CVA tenderness noted bilaterally. Musculoskeletal:No deformity noted to bilateral lower extremities.no cyanosis or mottling noted. normal pulses at DP and PT 2+ bilaterally and symmetrically.Normal 5/5 strength at ankles with dorsiflexion and plantar flexion.Patient is able to ambulate but it is painful to stand and ambulate.Normal sensation noted to both lower extremities. Neurological: AAOx4, normal sensory and motor observed.L5-S1 reflexes intact symmetrically.DTR 2+ at patellar bilaterally. Psychiatric:Cooperative and interactive. Constitutional Vital Signs, click to edit/add: Last Vital Signs Temp 97.6 F 02/06/25 10:00 Pulse 91 H 02/06/25 10:00 Resp 20 02/06/25 10:00 BP 154/97 H 02/06/25 10:00 Pulse Ox 98 02/06/25 10:00 O2 Del Method Room Air 02/06/25 10:00 Course Vital Signs Vital signs: Vital Signs Temperature 97.6 F 02/06/25 10:00 Pulse Rate 91 H 02/06/25 10:00 Respiratory Rate 20 02/06/25 10:00 Blood Pressure 154/97 H 02/06/25 10:00 Pulse Oximetry 98 02/06/25 10:00 Oxygen Delivery Method Room Air 02/06/25 10:00 Temperature 97.6 F 02/06/25 10:00 Pulse Rate 91 H 02/06/25 10:00 Respiratory Rate 20 02/06/25 10:00 Blood Pressure 154/97 H 02/06/25 10:00 Pulse Oximetry 98 02/06/25 10:00 Oxygen Delivery Method Room Air 02/06/25 10:00 MDM - Back Pain/Injury MDM Narrative Medical decision making narrative: Patient presents with low back pain which, according to his information, is a chronic and long-term problem. He is not getting much relief from the oxycodone so he came to the ED to be evaluated. He plans to follow-up with pain management -Dr. Sheppard -but said that he needs to arrange this through his primary care physician, Dr. Paredes. Exam does not reveal any findings consistent with acute cauda equina syndrome, paraspinal abscess or other acute neurosurgical emergency. However he was sent for CT scanning of the lumbar spine as I do not see any recent imaging of this area in accordance with his back pain complaint. According to the radiologist, CT scan of the lumbar spine revealed chronic appearing compression deformity L1 vertebral body. No acute bony process. Endplate and facet joint degenerative changes without significant disc height loss. Bilateral nephrolithiasis. Patient informed of these results. He will need to make arrangements to see pain management through his primary care provider, Dr. Paredes. He currently takes Plavix and aspirin so I cannot prescribe him NSAIDs. He already has a prescription for Percocet. I prescribed a Medrol Dosepak for him to take to see if that helps decrease some of the inflammatory changes and robaxin to also help his pain. Imaging Data ct lumbar spine: Attestation: I have reviewed the pertinent imaging results. Radiologist's impression: ITS Impressions Lumbar Spine CT 02/06/25 10:15 IMPRESSION: Chronic appearing compression deformity L1 vertebral body. No acute bony process. Endplate and facet joint degenerative changes without significant disc height loss. Bilateral nephrolithiasis. Impression dictated by: Darien Dailey Jr., D.O. 02/06/2025 10:50 AM Dictation Location: [place] [address] Electronically authenticated by: [id number] Y Date: 02/06/2025 10:50 Discharge Plan Discharge Chief Complaint: Back Pain/Injury Clinical Impression: Acute exacerbation of chronic low back pain, Compression fracture of L1 vertebra Patient Disposition: Home, Self-Care Time of Disposition Decision: 11:14 Prescriptions / Home Meds: New methylprednisolone [Medrol (Suresh)] 4 mg tablets,dose pack 4 mg PO DAILY Qty: 21 0RF methocarbamol 750 mg tablet 750 mg PO Q6H PRN (Reason: pain) Qty: 30 0RF No Action omeprazole 40 mg capsule,delayed release(DR/EC) 40 mg PO DAILY zolpidem 10 mg tablet 10 mg PO DAILY PRN (Reason: insomnia) atorvastatin 20 mg tablet 20 mg PO DAILY topiramate [Topamax] 100 mg tablet 100 mg PO DAILY clopidogrel 75 mg Tablet 75 mg PO QD Qty: 30 2RF aspirin [Adult Low Dose Aspirin] 81 mg tablet,delayed release (DR/EC) 81 mg PO DAILY albuterol sulfate 90 mcg/actuation HFA aerosol inhaler 2 inh inhalation Q4H PRN (Reason: shortness of breath or wheezing) Qty: 8.5 0RF Trelegy Ellipta 100-62.5-25 mcg blister with device 1 inh INHALATION DAILY oxycodone-acetaminophen 5-325 mg tablet 1 tab PO QID PRN (Reason: pain) Print Language: Danish Instructions: Vertebral Compression Fracture (ED), Chronic Back Pain (DC), Lower Back Exercises (ED) Referrals: Gildardo Paredes MD [Primary Care Provider, Family Practice] - 1 week
--- OUTSIDE RECORDS SUMMARY | 2025-02-06 10:23 | XMS_ITS | CCD ---
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 Radiation Oncology - Follow Up Note DIAGNOSIS: Squamous cell carcinoma oropharynx, 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 Still with some residual left leg/foot weakness. Denies any speech change. No headache. Does have some ongoing right-sided neck and shoulder pain using oxycodone mild heat, relaxation techniques. 04/17/2022: Patient states he is doing well. Had some issues with right shoulder/torn ligament. Some ongoing right neck pain stable. Eating fairly well. Mild to moderate dysphagia to dry foods. 11/21/21:Recent increased lower back pain after reaching for object. Denies radicular component. Denies weakness. Also recent upper airway congestion with dysphagia/odynophagia however this is improving for him. LABORATORY: Latest Reference Range AND Units 12/20/24 13:25 TSH 0.270 - 4.200 mIU/L 2.120 Latest Reference Range AND Units 07/09/22 10:47 [...] pulmonary nodules, stable from prior study of neurologic: 04/14/2022. 2. Several mildly prominent mediastinal lymph nodes are again identified, unchanged. ALLERGIES No Known Allergies MEDICATIONS: clopidogrel (PLAVIX) 75 mg tablet Take 75 mg by mouth. megestrol (MEGACE) 400 mg/10 mL [...] HFA) 90 mcg/actuation inhaler q 4 HR. ipratropium-albuterol (DUONEB) 0.5 mg-3 mg(2.5 mg base)/3 mL nebu Inhale 3 mL as instructed as needed for wheezing/shortness of breath. topiramate (TOPAMAX) 100 mg tablet Take 100 mg by mouth twice daily. zolpidem (AMBIEN) 10 mg Take 10 mg by mouth at bedtime as needed. DULoxetine (CYMBALTA) 30 mg capsule q 24 HR. REVIEW OF SYSTEMS: GENERAL: SEE HPI. Denies fever. Energy level improving. HEENT: Negative for sudden vision or hearing changes. NECK: Feels tight mild to moderate discomfort/pain RESPIRATORY: Mild mostly nonproductive cough without dyspnea CARDIAC: Negative for chest pain, palpitations, murmurs, or syncopal episodes. GI: No nausea or diarrhea dysphagia is noted upon Neurologic: See HPI SKIN: Mild right back skin irritation no breakdown PHYSICAL EXAM: VS: 12/20/24 1304 BP: 151/70 Pulse: 83 Resp: 20 Temp: 37.2 ?C (98.9 ?F) SpO2: 99% Weight: 60.5 kg (133 lb 6.1 oz) KPS: 90 General Appearance: Well appearing, alert, in no acute distress, well-hydrated, well nourished.. 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 Slight edema upper posterior right neck without evidence of infection or erythema. Oropharynx: Lips, mucosa, and tongue without suspicious area. Bimanual exam without p (more content not included)... Normal [facility] TSH W/REFLEX FT4on 5 TSH Qn 2.120 m[IU]/L Normal 0.270-4.20 0 [facility] Comment on above: Order Comment: Speci men Type: BLOOD SPECIMEN Ordering Facility: [facility] Address: [address] [place] [address] Performed By: #### [facility] #### [facility] CLIA [id number] [address] [place] [address] [place] [address] [place] Orders Onlyon 11-21-2024 Orders Only [id number] Kyle Floyd 1960 Date Provider Department Center 11/21/2024 GILDARDO DAVIS [facility] PREOP [place] [facility] No family history on file [facility] HPon 11-18-2024 HP H&P reviewed. The emilie ye was examined and there are no changes to the H&P. [facility] NURSNOTEon 11-18-2024 NURSNOTE RN educated pt on d/ c instructions. This included: site care, limited physical activity, resume normal diet, future appointments, medications, and moderate sedation instructions. RN educated pt on when to notify physician and when to go to the hospital. RN educated pt on importance of not overusing stairs at this time and limited weight bearing of 5lbs. RN encouraged pt to voice any questions or concerns, and answered any questions or concerns if pt verbalized. Pt was wheeled off of unit with all of belongings. Normal [facility] Orders Onlyon 11-16-2024 Orders Only [id number] Kyle Floyd 1960 M Date Provider Department Center 11/16/2024 [id number] PURI [facility] No family history on file Normal [facility] 29on 11-15-2024 29 Addended by: MARINA PRICE on: 11/17/2024 03:48 PM Modules accepted: Orders Normal [facility] APTTon 11-15-2024 ACTIVATED PARTIAL THROMBOPLASTIN TIME IN PPP BY COAGULATION ASSAY 30.4 Seconds Normal 25.0-35.0 [facility] Comment on above: Result Comment: Clin ical significance of the APTT is questionable in the presence of heparin. Performed By: #### L [id number] #### [facility] [[email or web address]] LAB (BEAKER) [address] [place] [address] BASIC METABOLIC PANELon 11-01 Anion gap [Moles/Vol] 11 mmol/L Normal 7-20 [facility] Comment on above: Performed By: #### L [id number] #### [facility] [[email or web address]] LAB ([facility]) [address] [place] [address] Calcium [Mass/Vol] 9.4 mg/dL Normal 8.6-10.3 [facility] Comment on above: Performed By: #### L [id number] #### [facility] [[email or web address]] LAB (AKER) [address] [place] [address] Chloride [Moles/Vol] 97 mmol/L Low 98-107 [facility] Comment on above: Performed By: #### L [id number] #### [facility] (BEAKER) [address] [place] [address] CO2 [Moles/Vol] 29 mmol/L Normal 21-31 [facility] Comment on above: Performed By: #### L [id number] #### [facility] [[email or web address]] LAB (BEAKER) [address] [place] [address] Creatinine [Mass/Vol] 0.81 mg/dL Normal 0.70-1.30 [facility] Comment on above: Performed By: #### L [id number] #### [facility] [[email or web address]] LAB ([facility]) [address] [place] [address] GLOMERULAR FILTRATION RATE ML/MIN/1.73 SQ M.PREDICTED 98.5 mL/min/1.73m*2 Normal >60.0 [facility] Comment on above: Result Comment: The [facility]???s estimated glomerular filtration rate (eGFR) will no longer include consideration of race in its calculation. The National Kidney Foundation???s eGFR Task Force developed new recommendations for [...] disproportionately affect any one group of individuals. Performed By: #### L [id number] #### [facility] [[email or web address]] LAB ([facility]) [address] [place] [address] Glucose [Mass/Vol] 91 mg/dL Normal 70-100 [facility] Comment on above: Performed By: #### L [id number] #### [facility] [[email or web address]] LAB ([facility]) [address] [place] [address] Potassium [Moles/Vol] 4.3 mmol/L Normal 3.5-5.1 [facility] Comment on above: Performed By: #### L [id number] #### [facility] [[email or web address]] LAB ([facility]) [address] [place] [address] Sodium [Moles/Vol] 133 mmol/L Low 136-145 [facility] Comment on above: Performed By: #### L [id number] #### [facility] [[email or web address]] LAB ([facility]) [address] [facility] [place] [address] Urea nitrogen [Mass/Vol] 16 mg/dL Normal 7-25 [facility] Comment on above: Performed By: #### L [id number] #### [facility] [[email or web address]] LAB ([facility]) [address] [place] [address] UREA NITROGEN/CREATININE (MASS RATIO) IN SER/PLAS 19.8 Normal [facility] Comment on above: Performed By: #### L [id number] #### [facility] [[email or web address]] LAB ([facility]) [address] [place] [address] CBCon 11-15-2024 Erythrocyte distribution width (RBC) [Ratio] 13.6 % Normal 11.5-15.0 [facility] Comment on above: Performed By: #### L [id number] ####[facility] [[email or web address]] LAB ([facility])[address] [place] [address] ERYTHROCYTE MEAN CORPUSCULAR HEMOGLOBIN CONCENTRATION (G/DL) BY AUTOMATED 33.0 g/dL Normal 32.0-35.0 [facility] Comment on above: Performed By: #### L [id number] ####[facility] [[email or web address]] LAB ([facility])[address] [place] [address] Hematocrit (Bld) [Volume fraction] 40.6 % Normal 39.0-50.0 [facility] Comment on above: Performed By: #### L [id number] ####[facility] [[email or web address]] LAB ([facility])[address] [place] [address] Hemoglobin (Bld) [Mass/Vol] 13.4 g/dL Normal 13.0-17.0 [facility] Comment on above: Performed By: #### L [id number] ####[facility] [[email or web address]] LAB ([facility])[address] [place] [address] MCH (RBC) [Entitic mass] 33.3 pg High 27.0-33.0 [facility] Comment on above: Performed By: #### L [id number] ####[facility] [[email or web address]] LAB ([facility] [place] [address] MCV (RBC) [Entitic vol] 100.7 fL High 82.0-98.0 [facility] Comment on above: Performed By: #### L [id number] ####[facility] [[email or web address] ([facility] [place] [address] PLATELETS (10*3/UL) IN BLOOD AUTOMATED COUNT 345 10*3/uL Normal 150-400 [facility] Comment on above: Performed By: #### L [id number] ####[facility] [[email or web address]] LAB (BEAKER)[address] [place] [address] RBC (Bld) [#/Vol] 4.03 10*6/uL Low 4.20-5.70 [facility] Comment on above: Performed By: #### L [id number] ####[facility] [[email or web address]] LAB ([facility])[address] [place] [address] WBC (Bld) [#/Vol] 5.77 10*3/uL Normal 4.00-10.60 [facility] Comment on above: Performed By: #### L [id number] ####[facility] [[email or web address]] LAB ([facility])[address] [place] [address] HPon 11-15-2024 Pre-Anesthesia Clini c Service Date: 11/15/24 Chief Complaint: Patient presents for Pre-Anesthesia Clinic visit prior to upcoming arch cerebral carotid angiogram under general anesthesia. HPI Alejo Floyd is a pleasant 64 y.o. male who presents to Pre-Anesthesia Clinic visit today prior to upcoming arch cerebral carotid angiogram with Dr. Mcfarland under general anesthesia on 11/18/2024. Patient has PMH of COPD, HTN, PAD, tongue cancer, and subacute right frontal/temporal/parietal infarctions on 07/25/2024. Overall, patient reports feeling relatively well. She endorses shortness of breath and fatigue with exertion which is not new for him. He currently denies fever, chest pain, chest tightness, chest pressure, or shortness of breath at rest. ECHO at [place] in July 2024 revealed EF 50-55%, no significant valvular disease. CT of neck in July demonstrated soft and hard plaque with stenosis around 50%, his ultrasound at the time demonstrated 50 to 69% via velocities which is consistent with imaging here on 10/26 with 50 to 69% stenosis of the right ICA. Patient denies history of anesthesia complications including malignant hyperthermia, serotonin syndrome, pseudocholinesterase deficiency, PONV, or difficult intubation. No family history of anesthesia complications. He is a current cigarette smoker, 1 ppd. He drinks approximately 4 beers daily. Patient denies recreational drug use. EKG to reviewed, no acute findings. Patient follows with [facility]. Clearance request faxed to office per Dr. Mcfarland's office on 11/11/24. Preoperative labs remains outstanding, patient to complete today after visit. Subjective Allergies[1] Medication Documentation Review Audit Reviewed by Dipika Newsome RN (Registered Nurse) on 11/15/24 at 1420 Medication Order Taking? Sig Documenting Provider Last Dose Status albuterol 2.5 mg /3 mL (0.083 %) nebulizer solution [id number] Yes Take 2.5 mg by nebulization every 6 (six) hours if needed for wheezing. Aparna Andersen MD 11/15/2024 Active albuterol 90 mcg/actuation inhaler [id number] Yes Inhale 2 puffs every 6 (six) hours if needed for wheezing. Aparna Andersen MD 11/15/2024 Active aspirin 81 mg EC tablet [id number] Yes Take 81 mg by mouth in the morning. Aparna Andersen MD 11/15/2024 Active atorvastatin (Lipitor) 20 mg tablet [id number] Yes Take 20 mg by mouth in the morning. Aparna Andersen MD 11/15/2024 Active buPROPion XL (Wellbutrin XL) 150 mg 24 hr tablet [id number] Take 150 mg by mouth in the morning. Do not crush, chew, or split. Historical ProviderMD Flag for Review clopidogrel (Plavix) 75 mg tablet [id number] Yes Take 75 mg by mouth in the morning. Aparna Andersen MD 11/15/2024 Active fluticasone furoate-vilanteroL (Breo Ellipta) 100-25 mcg/dose inhaler [id number] Yes Inhale 1 puff in the morning. Aparna Andersen MD 11/15/2024 Active megestrol (Megace) 400 mg/10 mL (40 mg/mL) suspension [id number] Yes Take 20 mL by mouth in the morning. Shake well just before you measure a dose. Measure with a special dose-measuring spoon or medicine cup, not with a regular table spoon. If you do not have a dose-measuring device, ask your pharmacist for one. Aparna Andersen MD 11/15/2024 Active metoprolol succinate XL (Toprol-XL) 25 mg 24 hr tablet [id number] Yes Take 50 mg by mouth in the morning. Do not crush or chew. Historical ProviderMD 11/15/2024 Active omeprazole (PriLOSEC) [address] capsule [id number] Yes Take 40 mg by mouth before breakfast. Do not crush or chew. Historical ProviderMD 11/15/2024 Active oxyCODONE-acetaminophen (Percocet) 10-325 mg tablet [id number] Yes Take 1 tablet by mouth every 6 (six) hours if needed for severe pain (8-10 pain score). Historical ProviderMD 11/15/2024 Active potassium chloride CR (Klor-Con M10) 10 mEq ER tablet [id number] Yes Take 10 mEq by mouth in the morning. Do not crush or chew. Historical ProviderMD 11/15/2024 Active topiramate (Topamax) 100 mg tablet [id number] Yes Take 100 mg by mouth two times daily. Historical ProviderMD 11/15/2024 Active Immunization History Administered Date(s) Administered Covid (Membersuite) Bivalent Booster =>12 YRS 06/12/2022 Members[employer]ite Covid-19 Vaccine, 12&up, Fall 2022-05/27/2023 [employer] SARS-CoV-2 Vaccination 07/11/2020, 08/01/2020, 12/20/2020 Unspecified Sars-Cov-2 Vaccination 07/11/2020, 12/20/2020 Problem List[2] History Medical History[3] Surgical History[4] Social History Socioeconomic History Marital status: Single Spouse name: Not on file Number of children: Not on file Years of education: Not on file Highest education level: Not on file Occupational History Not on file Tobacco Use Smoking status: Every Day Types: Cigarettes Smokeless tobacco: Never Vaping Use Vaping status: Never Used Substance and Sexual Activity Alcohol use: Yes Comment: daily 3-4 per day Drug use: Never Sexual activity: Not o (more content not included)... Normal [facility] Labon 11-15-2024 Lab [id number] Kyle Floyd 1960 M Date Provider Department Center 11/15/2024 [id number] [[email or web address] MP LAB RESOURCE MP DRAW Medical Pavi No family history on file Normal [facility] MRSA/MSSA DNA NASALon 2024 MRSA DNA Negative Normal Negative [facility] Comment on above: Order Comment: Testi ng methodology is an automated qualitative in vitro diagnostic test for the directdetection and differentiation of Staphylococcus aureus (SA) DNA and methicillin-resistant Staphylococcus aureus (MRSA) DNA from nasal swabs in patients at risk for nasal colonization. The test utilizes real-time polymerase chain reaction (PCR) for the amplification of MRSA/SA DNA and fluorogenic target-specific hybridization probes for the detection of the amplified DNA. A negative result does not preclude nasal colonization. Performed By: #### L [id number] ####[facility] [[email or web address]] LAB (BEAKER)[address] [place] [address] MSSA DNA Negative Normal Negative [facility] Comment on above: Order Comment: Testi ng methodology is an automated qualitative in vitro diagnostic test for the directdetection and differentiation of Staphylococcus aureus (SA) DNA and methicillin-resistant Staphylococcus aureus (MRSA) DNA from nasal swabs in patients at risk for nasal colonization. The test utilizes real-time polymerase chain reaction (PCR) for the amplification of MRSA/SA DNA and fluorogenic target-specific hybridization probes for the detection of the amplified DNA. A negative result does not preclude nasal colonization. Performed By: #### L [id number] ####[facility] [[email or web address]] LAB (BEAKER)[address] [place] [address] PROTIME-INRon 11-15-2024 INR IN PPP BY COAGULATION ASSAY 1.11 High 0.90-1.10 [facility] Comment on above: Result Comment: ACCC P RECOMMENDED INR FOR WARFARIN THERAPY CONDITION INR [...] THERAPEUTIC RANGE. CHEST 1995;108:231S-246S. Performed By: #### L [id number] #### [facility] [[email or web address]] LAB (BEAKER) [address] [place] [address] PROTHROMBIN TIME (PT) IN PPP BY COAGULATION ASSAY 14.4 Seconds Normal 12.3-14.8 [facility] Comment on above: Performed By: #### L [id number] #### [facility] [[email or web address]] LAB (BEAKER) [address] [place] [address] Pre-Admission Testingon 11-01 Pre-Admission Testing [id number] Alejo Floydue 1960 M [facility] Provider Department Center 11/15/202437952-XUJ-QLRZKOFAOR CLINI*[facility] PAC [place] [facility] No family history on file Normal [facility] Follow-Upon 10-31-2024 Follow-Up [id number] Kyle Floyd Valentino 1960 M Date Provider Department Center 10/31/2024 503-[address] CHIRINOS HVCVASENDO [place] [facility] No family history on file Level of Service:91416 RI OFFICE/OUTPATIENT ESTABLISHED MOD MDM 30 MIN Reason for Visit and Comments: Follow-up [239834] - Left side neck has cramps Normal [facility] HPon 10-31-2024 DEPARTMENT OF VASCUL AR SURGERY [facility] Alejo Floyd is a 64 y.o. male who presents today for follow-up evaluation for carotid stenosis and PAD. With respect to carotid disease patient does report that in May and then again in July this past year he developed sudden onset left-sided leg weakness and was seen at [facility]. He reports he was diagnosed with a TIA both times. I obtained records from [place] and appears he was diagnosed with a subacute right frontal/temporal/parietal infarctions via MRI on 07/25/2024. His CT of the neck demonstrated soft and hard plaque with stenosis around 50%, his ultrasound at the time demonstrated 50 to 69% via velocities which is consistent with imaging here on 10/26 with 50 to 69% stenosis of the right ICA. He had a carotid duplex prior to visit which demonstrated stable left-sided complete occlusion with 50 to 69% stenosis on the right (which is interval change from last visit). He is on aspirin, statin. 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 With his respect PAD he is doing very well, denies any lower extremity claudication symptoms, ulcerations or rest pain. He does have a history of revascularization with left lower extremity femoral angioplasty and stenting on 09/28/[address] Najera. His BRITTANY remained stable on the right without evidence of occlusive disease with continued moderate occlusive disease in the left BRITTANY 0.57. Review of Systems Constitutional: Negative for chills, fever and malaise/fatigue. HENT: Negative for congestion, ear pain and sore throat. Eyes: Negative for blurred vision, double vision and visual disturbance. Cardiovascular: Negative for chest pain and palpitations. Respiratory: Positive for shortness of breath. Skin: Negative for color change, dry skin, itching and nail changes. Musculoskeletal: Positive for back pain and neck pain. Gastrointestinal: Positive for abdominal pain. Negative for bloating, bowel incontinence, constipation, diarrhea, nausea and vomiting. Genitourinary: Negative for bladder incontinence. Neurological: Negative for dizziness, headaches and light-headedness. Psychiatric/Behavioral: Negative for altered mental status, depression and hallucinations. Allergic/Immunologic: Negative for hives. Past Medical History: Medical History[1] Objective There were no vitals taken for this visit. Physical Exam Constitutional: General: He is not in acute distress. Appearance: Normal appearance. He is not ill-appearing. HENT: Head: Normocephalic and atraumatic. Eyes: General: No scleral icterus. Pupils: Pupils are equal, round, and reactive to light. Neck: Vascular: Carotid bruit present. Cardiovascular: Rate and Rhythm: Normal rate and regular rhythm. Comments: Diminished pedal pulses on the left Pulmonary: Effort: Pulmonary effort is normal. Breath sounds: Normal breath sounds. Musculoskeletal: Cervical back: Neck supple. Skin: General: Skin is warm and dry. Comments: Feet are warm without mottling or ulcerations Neurological: General: No focal deficit present. Mental Status: He is alert and oriented to person, place, and time. Psychiatric: Mood and Affect: Mood normal. Behavior: Behavior normal. Thought Content: Thought content normal. Judgment: Judgment normal. Imaging Reviewed: I independently reviewed and interpreted the following images: Carotid duplex 10/26/24- 50-69% stenosis right ICA, complete occlusion left ICA Assessment and Plan: Diagnoses and all orders for this visit: Symptomatic stenosis of right carotid artery Carotid stenosis, bilateral PAD (peripheral artery disease) Reviewed ultrasound from 10/26 as well as, ultrasound, CTA and MRI from July 2024 at [place]. Patient has over 50-69% stenosis which has been consistent with 2 different ultrasounds with MRI evidence of subacute stroke on the right via MRI. Reviewed case with Dr. Mcfarland, at this time we will proceed with transfemoral carotid/cerebral angiogram with carotid stenting (with distal embolic protection). Given his hostile neck transfemoral approach most appropriate. Echo done at [place] in July EF 50-55% no significant valvular disease His PAD is stable. He has known LLE moderate occlusive disease but is free of symptoms. Will continue medical management GDMT: DAPT, statin If recurrent left-sided symptoms occur patient advised to present to the ED immediately Electronically signed by: Vale Chirinos PA-C Physician Vocational Coordinator Vascular and Wound Surgery 10/31/2024 This note was created with the assistance of a speech-recognition program. While intending to generate a document that accurately reflects the content of the encounter, no guarantee can be provided that every mistake has been identified and corrected by editing [1] No past medical his (more content not included)... 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 Normal [facility] CNOVon 06-10-2024 CNOV Office Visit (ORHSMN ) ALEJO FLOYD ([id number]) 1960 M Date Time Provider Department 06/10/24 1:30 PM [facility] During your visit today, we recorded the following information about you: Weight Height 63.5 kg 1.778 m Hebert Miguel MD 06/10/2024 5:06 PM Signed SHOULDER/ELBOW INITIAL CONSULT SERVICE DATE: 06/09/2024 PCP: Gildardo Lacy MD REFERRING PROVIDER: EMILIE Spicer [address] [address] Consult requested for an opinion regarding the evaluation and treatment of the above. My final impression and recommendations will be communicated back to the requesting physician by way of the shared medical record or letter via US mail. CHIEF COMPLAINT: Right shoulder pain SUBJECTIVE HISTORY OF PRESENT ILLNESS: 63 year old male, who presents for the above CC. Patient is a vnixc-juok-qxhlinnx 63-year-old male with past medical history of [...] without relief. Has been taking Tylenol and qjrd-suw-opfhmvr medications. Pain is improved when he is [...] mg. albuterol (more content not included)... Normal [facility] CT Shoulder - right WO contr ольга [...] are maintained. IMPRESSION: No acute bony abnormality. Sand Conditioner: EDGAR Transcribe Date/Time: Jun 10 2024 5:13P Dictated by : GERMAN VALDEZ MD This examination was interpreted and the report reviewed and electronically signed by: GERMAN VALDEZ MD on Jun 10 2024 5:13PM EST [id number]^ACN [facility], Radiologi MD dank - 06/10/2024 [...] are maintained. IMPRESSION: No acute bony abnormality. Sand Conditioner[facility] Transcribe Date/Time: Jun 10 2024 5:13P Dictated by : GERMAN VALDEZ MD This examination was interpreted and the report reviewed and electronically signed by: GERMAN VALDEZ MD on Jun 10 2024 5:13PM EST [id number]^ACN [facility] Radiology Study observation (narrative) [facility] No Panel InformationOrdered By: Radiologist Radiology on 06-10-2024 [facility] Work Phone: XR SHLDR >/=3V AP/DEVON AP/OTH [...] are maintained. IMPRESSION: No acute bony abnormality. Sand Conditioner: PSCB Transcribe Date/Time: Jun 10 2024 5:13P Dictated by : GERMAN VALDEZ MD This examination was interpreted and the report reviewed and electronically signed by: GERMAN VALDEZ MD on Jun 10 2024 5:13PM EST [id number] Normal [facility] XR Shoulder - right 3 Viewso n 06-10-2024 IMPRESSION: No acute bony abnormality. Sand Conditioner: [facility] Transcribe Date/Time: Jun 10 2024 5:13P Dictated [...] spaces are maintained. DIVISION OF RADIOLOGY Provider, [facility] Suman [facility] - 06/10/2024 * * *Final Report* [...] maintained. IMPRESSION IMPRESSION: No acute bony abnormality. Sand Conditioner: PSCJuan Luis Transcribe Date/Time: Jun 10 2024 5:13P Dictated by : GERMAN VALDEZ MD This examination was interpreted and the report reviewed and electronically signed by: GERMAN VALDEZ MD on Jun 10 2024 5:13PM EST [facility] Radiology Study observation (narrative) [facility] PET+CT Guidance for localiza tion of tumor [...] any questions regarding this interpretation, please call [phone]. If you are unable to reach us at the number above, please feel free to contact [facility] at [phone]. DIVISION OF RADIOLOGY * * *Final Report* [...] * Radiopharmaceutical Activity: 6.8 mCi * Radiopharmaceutical: V21-Qdeihqkpjjbgqmeqsb (FDG) * All reported standardized uptake values represent maximum SUV (SUVmax) per body weight, unless otherwise specified. COMPARISON: 02/11/2023 CORRELATION: CT neck and chest 09/10/2022 RESULT: REFERENCES: SUV reference values: * Blood pool (descending aorta) activity: SUVmax 2.1 * Background liver activity: SUVmax 2.7 [place] (topogram) images: No additional findings. Notes and [...] No abnormal uptake. DIVISION OF RADIOLOGY Provider, Charito Suman [facility] - 12/17/2023 * * *Final Report* [...] * Radiopharmaceutical Activity: 6.8 mCi * Radiopharmaceutical: N17-Opyrpefmssmzpsbewn (FDG) * All reported standardized uptake values represent maximum SUV (SUVmax) per body weight, unless otherwise specified. COMPARISON: 02/11/2023 CORRELATION: CT neck and chest 09/10/2022 RESULT: REFERENCES: SUV reference values: * Blood pool (descending aorta) activity: SUVmax 2.1 * Background liver activity: SUVmax 2.7 [place] (topogram) images: No additional findings. Notes and [...] any questions regarding this interpretation, please call [phone]. If you are unable to reach us at the number above, please feel free to contact [facility] at [phone]. [facility] PET+CT Guidance for localiza tion of tumor of Skull base to mid-thigh-- W 18F-FDG IVOrdered By: Ccf Provider on 12-17-2023 [facility] CBC W Auto Differential pane l (Bld)on 12-15-2023 Basophils (Bld) [#/Vol] 0.04 10*3/uL [facility] Basophils/100 WBC (Bld) 0.6 % [facility] Differential cell count method Nom (Bld) Auto [facility] Eosinophils (Bld) [#/Vol] [facility] Eosinophils/100 WBC (Bld) 0.3 % [facility] Erythrocyte distribution width (RBC) [Ratio] 15.7 % High 11.5 - 15.0 % [facility] Hematocrit (Bld) [Volume fraction] 41.9 % 39.0 - 51.0 % [facility] Hemoglobin (Bld) [Mass/Vol] 13.9 g/dL 13.0 - 17.0 g/dL [facility] Immature granulocytes (Bld) [#/Vol] [facility] Immature granulocytes/100 WBC (Bld) 0.3 % [facility] Interpretation and review of laboratory results Abnormal [facility] Lymphocytes (Bld) [#/Vol] 1.15 10*3/uL [facility] Lymphocytes/100 WBC (Bld) 17.6 % [facility] MCH (RBC) [Entitic mass] 33.7 pg 26.0 - 34.0 pg [facility] MCHC (RBC) [Mass/Vol] 33.2 g/dL 30.5 - 36.0 g/dL [facility] MCV (RBC) [Entitic vol] 101.5 fL High 80.0 - 100.0 fL [facility] Monocytes (Bld) [#/Vol] 0.87 10*3/uL High NINF [facility] Monocytes/100 WBC (Bld) 13.3 % [facility] Neutrophils (Bld) [#/Vol] 4.45 10*3/uL [facility] Neutrophils/100 WBC (Bld) 67.9 % [facility] Nucleated RBC (Bld) [#/Vol] NINF [facility] Nucleated RBC/100 WBC (Bld) [Ratio] 0.0 % /100 WBC [facility] Platelet mean volume (Bld) [Entitic vol] 9.8 fL 9.0 - 12.7 fL [facility] Platelets (Bld) [#/Vol] 235 10*3/uL [facility] RBC (Bld) [#/Vol] 4.13 10*6/uL Low 4.20 - 6.00 m/uL [facility] WBC (Bld) [#/Vol] 6.55 10*3/uL [facility] Comprehensive metabolic 2000 panelOrdered By: Felisha Munoz on 12-15-2023 Albumin [Mass/Vol] 4.7 g/dL 3.9 - 4.9 g/dL [facility] ALP [Catalytic activity/Vol] 62 U/L 38 - 113 U/L [facility] ALT [Catalytic activity/Vol] 7 U/L Low 10 - 54 U/L [facility] Anion gap [Moles/Vol] 9 mmol/L 8 - 15 mmol/L [facility] AST [Catalytic activity/Vol] 19 U/L 14 - 40 U/L [facility] Bilirubin [Mass/Vol] 1.0 mg/dL 0.2 - 1 .3 mg/dL [facility] Calcium [Mass/Vol] 10.3 mg/dL High 8.5 - 10. 2 mg/dL [facility] Chloride [Moles/Vol] 105 mmol/L 98 - 10 7 mmol/L [facility] CO2 [Moles/Vol] 24 mmol/L 22 - 30 mmol/L [facility] Creatinine [Mass/Vol] 0.81 mg/dL 0.73 - 1.22 mg/dL [facility] GFR/1.73 sq M.predicted among non-blacks MDRD (S/P/Bld) [Vol rate/Area] 99 mL/min/{1.73_m2} - PINF [facility] Comment on above: Estimated Glomerular Filtration Rate [...] 104 mg/dL High 74 - 99 mg/dL [facility] Comment on above: The [place] Diab[employer] s Association (ADA) provides guidance for [...] Standards of Medical Care in Diabetes 2016, [place] Diabetes [employer]. Diabetes Care. 2016.39(Suppl 1). Interpretation and review of laboratory results Abnormal [facility] Potassium [Moles/Vol] 4.4 mmol/L 3.7 - 5.1 mmol/L [facility] Protein [Mass/Vol] 7.5 g/dL 6.3 - 8.0 g/dL [facility] Sodium [Moles/Vol] 138 mmol/L 136 - 144 mmol/L [facility] Urea nitrogen [Mass/Vol] 13 mg/dL 9 - 24 mg/dL [facility] GLUCOSE, BLOOD (POC)on 12-14 Glucose [Mass/Vol] 111 mg/dL Abnormal 74 - 99 mg/dL [facility] Comment on above: Location:[facility], [address] [place] [address] , [place], [place], [address] The Accu-Chek Inform II glucose meter has [...] Interpretation and review of laboratory results Abnormal [facility] PET+CT Guidance for localiza tion of tumor of Skull base to mid-thigh-- W 18F-FDG Joanna 12-15-2023 Radiology Study observation (narrative) [facility] THYROID STIMULATING HORMONEo n 12-15-2023 TSH Qn 4.700 m[IU]/L High [facility] TSH Qnon 12-15-2023 Interpretation and review of laboratory results Abnormal [facility] ECG 12 Leadon 11-17-2023 ECG revealed normal sinus rhythm with PACs [facility] Work Phone: Cholesterol [Mass/volume] in Serum or PlasmaOrdered By: Carmen Neely on 09-08-2023 Cholesterol [Mass/Vol] 116 mg/dL Low 140-200 [facility] Comment on above: Chol less than 200 m g/dl low riskChol 201-239 mg/dl borderline riskChol 240 mg/dl and greater high risk Result Comment: Chol less than 200 mg/dl low risk Chol 201-239 mg/dl borderline risk Chol 240 mg/dl and greater high risk Performed By: #### L IPID #### [facility] [address] Cholesterol in LDL Calc [Mas s/Vol]Ordered By: Carmen Neely on 09-08-2023 Cholesterol in LDL [Mass/Vol] 48 mg/dL 0-100 [facility] Comment on above: LDL ATP III CLASSIFI CATIONLDL less than 100 mg/dL OptimalLDL 100-129 mg/dL Near or above optimalLDL 130-159 mg/dL Borderline highLDL 160-189 mg/dL HighLDL greater than 189 mg/dL Very high Cholesterol in VLDL Calc [Ma ss/Vol]Ordered By: Carmen Neely on 09-08-2023 Cholesterol in VLDL [Mass/Vol] 16 mg/dL [facility] Lipid Panelon 09-08-2023 LDL Cholesterol,Calculat ed 48 mg/dL Normal 0-100 [facility] Comment on above: Result Comment: LDL ATP III CLASSIFICATION LDL less than 100 mg/dL Optimal LDL 100-129 mg/dL Near or above optimal LDL 130-159 mg/dL Borderline high LDL 160-189 mg/dL High LDL greater than 189 mg/dL Very high Performed By: #### L IPID #### [facility] [address] [place] [address] [place] Triglyceride w/Reflex 84 mg/dL Normal 0-149 [facility] Comment on above: Result Comment: TRIG ATP III CLASSIFICATION TRIG less than 150 mg/dL Normal TRIG 150-199 mg/dL Borderline high TRIG 200-500 mg/dL High TRIG greater than 500 mg/dL Very high Standard traceable to the Center for Disease Conrtrol and Prevention (CDC) test method. Performed By: #### L IPID #### [facility] [address] [place] [id number] [facility] VLDL CHOLESTEROL 16 mg/dL Normal [facility] Comment on above: Performed By: #### L IPID #### [facility] [address] [place] [id number] [facility] Serum or plasma high density lipoprotein (HDL) cholesterol measurementOrdered By: Carmen Neely on 09-08-2023 Cholesterol in HDL [Mass/Vol] 51 mg/dL Normal 23-92 [facility] Comment on above: HDL CHOL ATP-III CLA SSIFICATION Cardiovascular RiskHDL > or equal to 60 mg/dL LOWHDL < 40 mg/dL HIGH Result Comment: HDL CHOL ATP-III CLASSIFICATION Cardiovascular Risk HDL > or equal to 60 mg/dL LOW HDL < 40 mg/dL HIGH Performed By: #### L IPID #### [facility] [address] Serum or plasma total choles terol/high density lipoprotein (HDL) cholesterol mass ratOrdered By: Carmen Neely on 09-08-2023 Cholesterol.total/Ch olesterol in HDL [Mass ratio] 2.3 {ratio} Normal <5.0 [facility] Comment on above: Result Comment: PERF ORMED BY: [facility] [address] [facility] [place] [address] PATHOLOGIST DUCT INSTALLER HECTOR MARTIN M.D. Performed By: #### L IPID #### [facility] [address] Triglyceride [Mass/volume] i n Serum or PlasmaOrdered By: Carmen Neely on 09-08-2023 Triglyceride [Mass/Vol] 84 mg/dL 0-149 [facility] Comment on above: TRIG ATP III CLASSIF ICATIONTRIG less than 150 mg/dL NormalTRIG 150-199 mg/dL Borderline highTRIG 200-500 mg/dL High TRIG greater than 500 mg/dL Very highStandard traceable to the Center for Disease Conrtrol and Prevention (CDC) test method. THYROID STIMULATING HORMONEo n 08-19-2023 TSH Qn 1.730 m[IU]/L 0.270 - 4.200 mIU/L [facility] Basic metabolic 2000 panelon 08-18-2023 Anion gap [Moles/Vol] 10 mmol/L 9 - 18 mmol/L [facility] Calcium [Mass/Vol] 10.2 mg/dL 8.5 - 10. 2 mg/dL [facility] Chloride [Moles/Vol] 102 mmol/L 97 - 10 5 mmol/L [facility] CO2 [Moles/Vol] 25 mmol/L 22 - 30 mmol/L [facility] Creatinine [Mass/Vol] 1.20 mg/dL 0.73 - 1.22 mg/dL [facility] Estimated Glomerular Filtration Rate 68 mL/min/1.73m >=60 mL/min/1.7 3m [facility] Glucose [Mass/Vol] 101 mg/dL High 74 - 99 mg/dL [facility] Potassium [Moles/Vol] 3.7 mmol/L 3.7 - 5.1 mmol/L [facility] Sodium [Moles/Vol] 137 mmol/L 136 - 144 mmol/L [facility] Urea nitrogen [Mass/Vol] 16 mg/dL 9 - 24 mg/dL [facility] CBC W Auto Differential pane l (Bld)on 08-18-2023 Basophils (Bld) [#/Vol] 0.03 10*3/uL <0.11 k/uL [facility] Basophils/100 WBC (Bld) 0.4 % [facility] Differential cell count method Nom (Bld) Auto [facility] Eosinophils (Bld) [#/Vol] 0.03 10*3/uL <0.46 k/uL [facility] Eosinophils/100 WBC (Bld) 0.4 % [facility] Erythrocyte distribution width (RBC) [Ratio] 13.3 % 11.5 - 15.0 % [facility] Hematocrit (Bld) [Volume fraction] 43.2 % 39.0 - 51.0 % [facility] Hemoglobin (Bld) [Mass/Vol] 14.3 g/dL 13.0 - 17.0 g/dL [facility] Immature granulocytes (Bld) [#/Vol] 0.03 10*3/uL <0.10 k/uL [facility] Immature granulocytes/100 WBC (Bld) 0.4 % [facility] Lymphocytes (Bld) [#/Vol] 1.63 10*3/uL 1.00 - 4.00 k/uL [facility] Lymphocytes/100 WBC (Bld) 20.2 % [facility] MCH (RBC) [Entitic mass] 34.0 pg 26.0 - 34.0 pg [facility] MCHC (RBC) [Mass/Vol] 33.1 g/dL 30.5 - 36.0 g/dL [facility] MCV (RBC) [Entitic vol] 102.6 fL High 80.0 - 100.0 fL [facility] Monocytes (Bld) [#/Vol] 0.78 10*3/uL <0.87 k/uL [facility] Monocytes/100 WBC (Bld) 9.7 % [facility] Neutrophils (Bld) [#/Vol] 5.55 10*3/uL 1.45 - 7.50 k/uL [facility] Neutrophils/100 WBC (Bld) 68.9 % [facility] Nucleated RBC (Bld) [#/Vol] <0.01 k/uL [facility] Nucleated RBC/100 WBC (Bld) [Ratio] 0.0 /100 WBC [facility] Platelet mean volume (Bld) [Entitic vol] 9.4 fL 9.0 - 12.7 fL [facility] Platelets (Bld) [#/Vol] 226 10*3/uL 150 - 400 k/uL [facility] RBC (Bld) [#/Vol] 4.21 10*6/uL 4.20 - 6.00 m/uL [facility] WBC (Bld) [#/Vol] 8.05 10*3/uL 3.70 - 11.00 k/uL [facility] PET+CT Guidance for localiza tion of tumor [...] any questions regarding this interpretation, please call [phone]. If you are unable to reach us at the number above, please feel free to contact [facility] at [phone]. DIVISION OF RADIOLOGY * * *Final Report* [...] SKELETON: There are no hypermetabolic osseous lesions. [place] (topogram) images:No additional findings. DIVISION OF RADIOLOGY [...] SKELETON: There are no hypermetabolic osseous lesions. [place] (topogram) images:No additional findings. IMPRESSION IMPRESSION: 1. [...] any questions regarding this interpretation, please call [phone]. If you are unable to reach us at the number above, please feel free to contact [facility] at [phone]. [facility] PET+CT Guidance for localiza tion of tumor of Skull base to mid-thigh-- W 18F-FDG IVOrdered By: Ccf Provider on 02-12-2023 [facility] GLUCOSE, BLOOD (POC)on 02-11 Glucose [Mass/Vol] 108 mg/dL Abnormal 74 - 99 mg/dL [facility] Comment on above: Location:[facility], [address] [place] [address] , [place], [place], [facility] The Accu-Chek Inform II glucose meter has [...] Interpretation and review of laboratory results Abnormal [facility] PET+CT Guidance for localiza tion of tumor of Skull base to mid-thigh-- W 18F-FDG Joanna 02-11-2023 Radiology Study observation (narrative) [facility] CT Chest W contrast Joanna IMPRESSION: 1. [...] any questions regarding this interpretation, please call [phone]. If you are unable to reach us at the number above, please feel free to contact [facility] at [phone]. DIVISION OF RADIOLOGY * * *Final Report* * * DATE OF EXAM: Sep 10 2022 8:42AM [facility] 0539 - CT CHEST W IVCON / [...] fossa. Epigastric ventral abdominal wall hernia, stable. [place] (topogram) images: No additional findings. DIVISION OF RADIOLOGY Provider, [facility] Suman [facility] - 09/11/2022 * * *Final Report* * * DATE OF EXAM: Sep 10 2022 8:42AM [facility] 0539 - CT CHEST W IVCON / [...] fossa. Epigastric ventral abdominal wall hernia, stable. [place] (topogram) images: No additional findings. IMPRESSION IMPRESSION: [...] any questions regarding this interpretation, please call [phone]. If you are unable to reach us at the number above, please feel free to contact [facility] at [phone]. [facility] CT Neck WO contraston 2022 * * *Final Report* * * DATE OF EXAM: Sep 10 2022 8:36AM [facility] 0509 - CT NECK SOFT TISSUE WO [...] any questions regarding this interpretation, please call [phone]. If you are unable to reach us at the number above, please feel free to contact [facility] at [phone]. DIVISION OF RADIOLOGY Provider, Cc Suman [facility] [place] - 09/10/2022 * * *Final Report* * * DATE OF EXAM: Sep 10 2022 8:36AM [facility] 0509 - CT NECK SOFT TISSUE WO [...] any questions regarding this interpretation, please call [phone]. If you are unable to reach us at the number above, please feel free to contact [facility] at [phone]. [facility] CT Neck WO contrastOrdered B y: Ccf Provider on 09-10-2022 [facility] No Panel Informationon 09-10 Radiology Study observation (narrative) [facility] CBC AUTO DIFFon 08-30-2022 BASO # 0.0 103/ul Normal 0.0-0.1 [facility] Comment on above: Performed By: #### C BC #### [facility] [address] [address] [address] Herb Jones Basophils/100 WBC (Bld) 0.4 % Normal 0.2-2.0 [facility] Comment on above: Performed By: #### C BC #### [facility] [address] [place] [address] Dr. Herb Jones EO # 0.2 103/ul Normal 0.0-0.7 [facility] Comment on above: Performed By: #### C BC #### [facility] [address] [place] [address] Dr. Herb Jones Eosinophils/100 WBC (Bld) 1.6 % Normal 0.9-7.0 [facility] Comment on above: Performed By: #### C BC #### [facility] [address] [place] [address] Dr. Herb Jones Erythrocyte distribution width (RBC) [Ratio] 16.3 % Critically high 11.0-15.0 [facility] Comment on above: Performed By: #### C BC #### [facility] [address] [place] [address] Dr. Herb Jones Hematocrit (Bld) [Volume fraction] 37.3 % Critically low 42.0-54.0 [facility] Comment on above: Performed By: #### C BC #### [facility] [address] [place] [address] Dr. Herb Jones Hemoglobin (Bld) [Mass/Vol] 12.5 g/dL Critically low 14.0-18.0 [facility] Comment on above: Performed By: #### C BC #### [facility] [address] [place] [address] Dr. Herb Jones IG # 0.03 10e3/ul Normal 0.00-0.03 [facility] Comment on above: Performed By: #### C BC #### [facility] [address] [place] [address] Dr. Herb Jones IG % 0.3 % Normal 0.0-0.5 [facility] Comment on above: Performed By: #### C BC #### [facility] [address] [place] [address] Dr. Herb Jones LYMPH # 1.0 103/ul Critically low 1.2-3.8 [facility] Comment on above: Performed By: #### C BC #### [facility] [address] [place] [address] Dr. Herb Jones Lymphocytes/100 WBC (Bld) 9.6 % Critically low 20.5-60.0 [facility] Comment on above: Performed By: #### C BC #### [facility] [address] [place] [address] Dr. Herb Jones MANUAL DIFF REQ NO Normal [facility] Comment on above: Performed By: #### C BC #### [facility] [address] [place] [address] Dr. Herb Jones MCH (RBC) [Entitic mass] 31.9 pg Normal 25.9-34.0 [facility] Comment on above: Performed By: #### C BC #### [facility] [address] [place] [address] Dr. Herb Jones MCHC (RBC) [Mass/Vol] 33.5 g/dL Normal 29.9-35.2 [facility] Comment on above: Performed By: #### C BC #### [facility] [address] [place] [address] Dr. Herb Jones MCV (RBC) [Entitic vol] 95.2 fL Critically high 80.0-94.0 [facility] Comment on above: Performed By: #### C BC #### [facility] [address] [place] [address] Dr. Herb Jones MONO # 1.1 103/ul Critically high 0.3-0.8 [facility] Comment on above: Performed By: #### C BC #### [facility] [address] [place] [address] Dr. Herb Jones Monocytes/100 WBC (Bld) 10.6 % Normal 1.7-12.0 [facility] Comment on above: Performed By: #### C BC #### [facility] [address] [place] [address] Dr. Herb Jones NEUT # 8.0 103/ul Critically high 1.4-6.5 [facility] Comment on above: Performed By: #### C BC #### [facility] [address] [place] [address] Dr. Herb Jones Neutrophils/100 WBC (Bld) 77.5 % Critically high 43.0-75.0 [facility] Comment on above: Performed By: #### C BC #### [facility] [address] [place] [address] Dr. Herb Jones Platelet mean volume (Bld) [Entitic vol] 8.8 fL Critically low 9.5-13.5 [facility] Comment on above: Performed By: #### C BC #### [facility] [address] [place] [address] Dr. Herb Jones PLT 326 103/ul Normal 150-450 [facility] Comment on above: Performed By: #### C BC #### [facility] [address] [place] [address] Dr. Herb Jones RBC 3.92 106/ul Critically low 4.70-6.10 [facility] Comment on above: Performed By: #### C BC #### [facility] [address] [place] [address] Dr. Herb Jones WBC 10.3 103/ul Normal 4.0-11.0 [facility] Comment on above: Performed By: #### C BC #### [facility] [address] [place] [address] Dr. Herb Jones [facility]03 SARS-CoV-2 (COVID-19) RNA BLANCA+probe Ql (Unsp spec) Not detected Normal NOT DETECTED [facility] Comment on above: Result Comment: This test is not yet approved or cleared by the [place] FDA. When there are no FDA-approved or cleared tests available, and other criteria are met, FDA can make tests available under an emergency access mechanism called an Emergency Use Authorization (EUA). The EUA for this test is supported by the [place] of Health and Human Service's (HHS's) declaration [...] with SARS-CoV-2. Performed By: #### C VDTBH ####[facility] [address] [place] [place], [place] [address]Dr. Herb Jones GROUP A STREP CULTUREon 08-03 S. pyogenes Ag Ql (Unsp spec) Culture Observations: NEGATIVE FOR GROUP A STREPTOCOCCUS. Normal [facility] Comment on above: Performed By: #### S SCRN, GRASTCX ####[facility] [address] [place], [place] [address]Dr. Herb Jones INFLUENZA A AND B AGon 08-30 INFLUANEGH SEE BELOW Normal [facility] Comment on above: Result Comment: Nega tive for Flu A protein angiten. Infection due to Flu A cannot be ruled out. Flu A angiten in the sample may be below the detection limit of the test. Performed By: #### I NFLUAB ####[facility] [address] [place], [place] [address]Dr. Herb Jones INFLUBNEGH SEE BELOW Normal [facility] Comment on above: Result Comment: Nega tive for Flu B protein antigen. Infection due to Flu B cannot be ruled out. Flu B antigen in the sample may be below the detection limit of the test. Performed By: #### I NFLUAB ####[facility] [address] [place], [place] [address]Dr. Herb Jones INFLUENZA A AG Negative Normal NEGATIVE SEE COMMENT [facility] Comment on above: Performed By: #### I NFLUAB ####[facility] [address] [place] [id number]. Herb Jones INFLUENZA B AG Negative Normal NEGATIVE SEE COMMENT [facility] Comment on above: Performed By: #### I NFLUAB ####[facility] [address] [place] [id number]. Herb Jones PROF 14(COMP METB)on 023 Albumin [Mass/Vol] 3.2 g/dL Critically low 3.4-5.0 Th e [facility] Comment on above: Performed By: #### C MP #### [facility] [address] [address] [address] Herb Jones Albumin/Globulin [Mass ratio] 0.8 {ratio} Normal [facility] Comment on above: Performed By: #### C MP #### [facility] [address] [address] [address] Herb Jones ALP [Catalytic activity/Vol] 148 U/L Critically high 46-116 [facility] Comment on above: Performed By: #### C MP #### [facility] [address] [address] [address] Herb Jones ALT [Catalytic activity/Vol] 23 U/L Normal 16-63 [facility] Comment on above: Performed By: #### C MP #### [facility] [address] [address] [address] Herb Jones Anion gap [Moles/Vol] 13.9 mmol/L Normal [facility] Comment on above: Performed By: #### C MP #### [facility] [address] [address] [address] Herb Jones AST [Catalytic activity/Vol] 22 U/L Normal 15-37 [facility] Comment on above: Performed By: #### C MP #### [facility] [address] [address] [address] Herb Jones Bilirubin [Mass/Vol] 0.6 mg/dL Normal 0.2-1.0 [facility] Comment on above: Performed By: #### C MP #### [facility] [address] [address] [address] Herb Jones Calcium [Mass/Vol] 9.0 mg/dL Normal 8.5-10.1 [facility] Comment on above: Performed By: #### C MP #### [facility] [address] [address] [address] Herb Jones Chloride [Moles/Vol] 101 mmol/L Normal 98-107 [facility] Comment on above: Performed By: #### C MP #### [facility] [address] [address] [address] Herb Jones CO2 [Moles/Vol] 21.9 mmol/L Normal 21.0-32.0 [facility] Comment on above: Performed By: #### C MP #### [facility] [address] [place] [address] Dr. Herb Jones Creatinine [Mass/Vol] 0.97 mg/dL Normal 0.70-1.30 [facility] Comment on above: Performed By: #### C MP #### [facility] [address] [address] [address] Herb Jones EGFR-AF SAUDI ARABIAN >60 Normal >=60 [facility] Comment on above: Performed By: #### C MP #### [facility] [address] [place] [address] Dr. Herb Jones EGFR-NON AF SAUDI ARABIAN >60 Normal >=60 [facility] Comment on above: Performed By: #### C MP #### [facility] [address] [address] [address] Herb Jones Globulin (S) [Mass/Vol] 4.2 g/dL Normal [facility] Comment on above: Performed By: #### C MP #### [facility] [address] [place] [address] Dr. Herb Jones Glucose [Mass/Vol] 102 mg/dL Normal 74-106 [facility] Comment on above: Performed By: #### C MP #### [facility] [address] [address] [address] Herb Jones Potassium [Moles/Vol] 3.8 mmol/L Normal 3.5-5.1 [facility] Comment on above: Performed By: #### C MP #### [facility] [address] [address] [address] Herb Jones Protein [Mass/Vol] 7.4 g/dL Normal 6.4-8.2 [facility] Comment on above: Performed By: #### C MP #### [facility] [address] [address] [address] Herb Jones Sodium [Moles/Vol] 133 mmol/L Critically low 136-145 Th e [facility] Comment on above: Performed By: #### C MP #### [facility] [address] [address] [address] Herb Jones Urea nitrogen [Mass/Vol] 12.0 mg/dL Normal 7.0-18.0 [facility] Comment on above: Performed By: #### C MP #### [facility] [address] [address] [address] Herb Jones Urea nitrogen/Creatinine [Mass ratio] 12.4 mg/mg Normal [facility] Comment on above: Performed By: #### C MP #### [facility] [address] [address] [address] Herb Jones STREPT SCREENon 08-30-2022 STREP SCREEN A Negative Normal NEGATIVE [facility] Comment on above: Performed By: #### S SCRN, GRASTCX ####[facility] [address] [place] [address]Dr. Herb Jones SYMPTOMATIC COVID-19 ANTIGEN on 08-30-2022 EUA Statement SEE BELOW Normal [facility] Comment on above: Result Comment: This test [...] revoked sooner. Performed By: #### C VDAGS ####[facility] [address] [address]Dr. Herb Jones SARS-CoV-2 (COVID-19) RNA BLANCA+probe Ql (Unsp spec) Negative Normal NEGATIVE [facility] Comment on above: Performed By: #### C VDAGS ####[facility] [address] [place] [address]Dr. Herb Jones XR CHEST 1 Von 08-30-2022 [...] EMILY MUNROE Date: 2022-08-30 16:36 Normal [facility] LIPID PROFILEon 08-04-2022 CHOL-HDL RATIO NORM SEE BELOW Normal [facility] Comment on above: Result Comment: 3.3 - 4.4 LOW RISK 4.4 - 7.1 AVERAGE RISK 7.1 - 11.0 MODERATE RISK >11.0 HIGH RISK Performed By: #### L IPID, ALT, AST ####[facility] [address] [place] [id number]. Herb Jones Cholesterol [Mass/Vol] 111 mg/dL Normal <=200 [facility] Comment on above: Performed By: #### L IPID, ALT, AST ####[facility] [address] [place] [id number]. Herb Jones Cholesterol in HDL [Mass/Vol] 46 mg/dL Normal 40-60 [facility] Comment on above: Performed By: #### L IPID, ALT, AST ####[facility] [address] [place] [address]Dr. Herb Jones Cholesterol in LDL [Mass/Vol] 56.4 mg/dL Normal [facility] Comment on above: Performed By: #### L IPID, ALT, AST ####[facility] [address] [place] [address]Dr. Herb Jones Cholesterol.total/Ch olesterol in HDL [Mass ratio] 2.4 {ratio} Normal [facility] Comment on above: Performed By: #### L IPID, ALT, AST ####[facility] [address] [place] [address]Dr. Herb Jones HDL NORMAL > or = 60 mg/dl - LO W CARDIOVASCULAR RISK <40 mg/dl - HIGH CARDIOVASCULAR RISK Normal [facility] Comment on above: Performed By: #### L IPID, ALT, AST ####[facility] [address] [place], [place] [address]Dr. Herb Jones LDL CALC NORMAL SEE BELOW Normal [facility] Comment on above: Result Comment: <100 mg/dl OPTIMAL 100 - 129 mg/dl NEAR OR ABOVE OPTIMAL 130 - 159 mg/dl BORDERLINE HIGH 160 - 189 mg/dl HIGH >190 mg/dl VERY HIGH Performed By: #### L IPID, ALT, AST ####[facility] [address] [place] [address]Dr. Herb Jones Triglyceride [Mass/Vol] 43 mg/dL Normal <=150 [facility] Comment on above: Performed By: #### L IPID, ALT, AST ####[facility] [address] [place] [address]Dr. Herb Jones VLDL CALC 8.6 mg/dL Normal [facility] Comment on above: Performed By: #### L IPID, ALT, AST ####[facility] [address] [place] [address]Dr. Herb Jones SGOTon 08-04-2022 AST [Catalytic activity/Vol] 18 U/L Normal 15-37 [facility] Comment on above: Performed By: #### L IPID, ALT, AST #### [facility] [address] [place], [place] [address] Dr. Herb Jones SGPTon 08-04-2022 ALT [Catalytic activity/Vol] 20 U/L Normal 16-63 [facility] Comment on above: Performed By: #### L IPID, ALT, AST #### [facility] [address] [place], [place] [address] Dr. Herb Jones Office Visit (Cardiology)on 06-10-2022 Follow-up visit Diagnoses/Problems Assessed Mixed hyperlipidemia (272.2) (E78.2) PVD (peripheral vascular disease) (443.9) (I73.9) Status post left lower extremity stenting TIA (transient ischemic attack) (435.9) (G45.9) Former smoker (V15.82) (Z87.891) quit 05/22/22 Overweight with body mass index (BMI) of 25 to 25.9 in adult (278.02,V85.21) (E66.3,Z68.25) Orders Abnormal EKG IO EKG Electrocardiogram- 12 Lead; Status:Complete; Done: [id number] Mixed hyperlipidemia Start: Atorvastatin Calcium 20 MG Oral Tablet; TAKE 1 TABLET AT BEDTIME ALT - Alanine Aminotransferase, Serum; Status:Active - Retrospective Authorization; Requested for:08Aug2022; AST; Status:Active - Retrospective Authorization; Requested for:08Aug2022; Lipid Panel; Status:Active - Retrospective Authorization; Requested for:[id number]; PVD (peripheral vascular disease) Renew: Aspirin 81 MG Oral Tablet Delayed Release; TAKE 1 TABLET DAILY SocHx: Former smoker Tobacco Use Screening; Status:Complete; Done: [id number] SocHx: Former smoker, Overweight with body mass index (BMI) of 25 to 25.9 in adult Healthy Weight Tips; Status:Complete - Retrospective Authorization; Done: 10Jun2022 Some eating tips that can help you lose weight.; Status:Complete - Retrospective Authorization; Done: [id number] Unlinked Stop: Amiodarone HCl - 200 MG [...] of your visit. obtain PVR test from [facility] Follow up in 6 months Chief [...] had PVR study several months ago at [facility] which I requested. His cardiac and pulmonary [...] DAILY. Omeprazole (more content not included)... Normal [employer] Tobacco Screening.on 023 Tobacco use status CPHS b) No [facility] 250 DO Work Phone: Tobacco Screening. Yes [facility] 250 DO Work Phone: CBC W Auto Differential pane l (Bld)on 05-20-2022 Basophils (Bld) [#/Vol] 0.07 10*3/uL <0.11 k/uL [facility] Basophils/100 WBC (Bld) 1.1 % [facility] Differential cell count method Nom (Bld) Auto [facility] Eosinophils (Bld) [#/Vol] 0.08 10*3/uL <0.46 k/uL [facility] Eosinophils/100 WBC (Bld) 1.3 % [facility] Erythrocyte distribution width (RBC) [Ratio] 14.5 % 11.5 - 15.0 % [facility] Hematocrit (Bld) [Volume fraction] 43.8 % 39.0 - 51.0 % [facility] Hemoglobin (Bld) [Mass/Vol] 14.1 g/dL 13.0 - 17.0 g/dL [facility] Immature granulocytes (Bld) [#/Vol] 0.05 10*3/uL <0.10 k/uL [facility] Immature granulocytes/100 WBC (Bld) 0.8 % [facility] Lymphocytes (Bld) [#/Vol] 1.33 10*3/uL 1.00 - 4.00 k/uL [facility] Lymphocytes/100 WBC (Bld) 21.8 % [facility] MCH (RBC) [Entitic mass] 31.9 pg 26.0 - 34.0 pg [facility] MCHC (RBC) [Mass/Vol] 32.2 g/dL 30.5 - 36.0 g/dL [facility] MCV (RBC) [Entitic vol] 99.1 fL 80.0 - 100.0 fL [facility] Monocytes (Bld) [#/Vol] 0.72 10*3/uL <0.87 k/uL [facility] Monocytes/100 WBC (Bld) 11.8 % [facility] Neutrophils (Bld) [#/Vol] 3.86 10*3/uL 1.45 - 7.50 k/uL [facility] Neutrophils/100 WBC (Bld) 63.2 % [facility] Nucleated RBC (Bld) [#/Vol] <0.01 k/uL [facility] Nucleated RBC/100 WBC (Bld) [Ratio] 0.0 /100 WBC [facility] Platelet mean volume (Bld) [Entitic vol] 9.3 fL 9.0 - 12.7 fL [facility] Platelets (Bld) [#/Vol] 281 10*3/uL 150 - 400 k/uL [facility] RBC (Bld) [#/Vol] 4.42 10*6/uL 4.20 - 6.00 m/uL [facility] WBC (Bld) [#/Vol] 6.11 10*3/uL 3.70 - 11.00 k/uL [facility] Comprehensive metabolic 2000 panelon 05-20-2022 Albumin [Mass/Vol] 4.6 g/dL 3.9 - 4.9 g/dL [facility] ALP [Catalytic activity/Vol] 119 U/L High 38 - 113 U/L [facility] ALT [Catalytic activity/Vol] 15 U/L 10 - 54 U/L [facility] Anion gap [Moles/Vol] 11 mmol/L 9 - 18 mmol/L [facility] AST [Catalytic activity/Vol] 21 U/L 14 - 40 U/L [facility] Bilirubin [Mass/Vol] 0.5 mg/dL 0.2 - 1 .3 mg/dL [facility] Calcium [Mass/Vol] 9.8 mg/dL 8.5 - 10. 2 mg/dL [facility] Chloride [Moles/Vol] 102 mmol/L 97 - 10 5 mmol/L [facility] CO2 [Moles/Vol] 23 mmol/L 22 - 30 mmol/L [facility] Creatinine [Mass/Vol] 1.16 mg/dL 0.73 - 1.22 mg/dL [facility] Estimated Glomerular Filtration Rate 72 mL/min/1.73m >=60 mL/min/1.7 3m [facility] Glucose [Mass/Vol] 106 mg/dL High 74 - 99 mg/dL [facility] Potassium [Moles/Vol] 4.7 mmol/L 3.7 - 5.1 mmol/L [facility] Protein [Mass/Vol] 7.4 g/dL 6.3 - 8.0 g/dL [facility] Sodium [Moles/Vol] 136 mmol/L 136 - 144 mmol/L [facility] Urea nitrogen [Mass/Vol] 18 mg/dL 9 - 24 mg/dL [facility] CT Chest W contrast Joanna IMPRESSION: 1. [...] any questions regarding this interpretation, please call [phone]. If you are unable to reach us at the number above, please feel free to contact [facility] eRadiology at [phone]. DIVISION OF RADIOLOGY * * *Final Report* * * DATE OF EXAM: Apr 14 2022 11:45AM [facility] 0539 - CT CHEST W IVCON / [...] clips within the gallbladder fossa are noted. [place] (topogram) images: No additional findings. DIVISION OF RADIOLOGY [facility] * * *Final Report* * * DATE OF EXAM: Apr 14 2022 11:45AM [facility] 0539 - CT CHEST W IVCON / [...] clips within the gallbladder fossa are noted. [place] (topogram) images: No additional findings. IMPRESSION IMPRESSION: [...] any questions regarding this interpretation, please call [phone]. If you are unable to reach us at the number above, please feel free to contact [facility] e[facility]iology at [phone]. [facility] MRI SHOULDER RT WO CONon MRI [...] BELLA PEREIRA Date: 2022-04-15 16:08 Normal [facility] CREATININE BLDOrdered By: Stanley Zaman on 04-14-2022 Creatinine [Mass/Vol] 1.16 mg/dL 0.73 - 1.22 mg/dL [facility] GFR/1.73 sq M.predicted among non-blacks MDRD (S/P/Bld) [Vol rate/Area] 72 mL/min/{1.73_m2} - PINF [facility] Comment on above: Estimated Glomerular Filtration Rate [...] Interpretation and review of laboratory results Normal [facility] CT Neck W contrast Joanna - IMPRESSION: Treatment related changes in the right [...] any questions regarding this interpretation, please call [phone]. If you are unable to reach us at the number above, please feel free to contact [facility] at [phone]. 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 Otherwise, bilateral parotid glands are unremarkable. [employer] spaces appear normal. Infrahyoid Neck: Mucosal/mucosal edema [...] content not included)... 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 Otherwise, bilateral parotid glands are unremarkable. [employer] spaces appear normal. Infrahyoid Neck: Mucosal/mucosal edema [...] hydrocephalus. Cervical spine (more content not included)... [facility] CT Neck W contrast IVOrdered By: Ccf Provider on 04-14-2022 [facility] No Panel Informationon 04-14 Radiology Study observation (narrative) [facility] Echocardiogramon 01-13-2022 Echocardiography [facility] [address], [address], [place] [address] TRANSTHORACIC ECHOCARDIOGRAM REPORT Patient Name: ALEJO MARIEL Reading Physician: [id number] Carmen Neely MD, [facility] Study Date: 01/13/2022 Referring [id number] CARMEN NEELY Physician: MRN/PID: [id number] PCP: Gildardo Lacy Accession/Order#: [id number] Department [facility] Location: Date of : 1960 Fellow: Gender: M Nurse: Admit Date: [employer] Processor: Tamika Howard RDCS, T Height: 177.80 cm CC Report to: Weight: 74.39 kg Study Type: Echocardiogram BSA: 1.92 m2 Blood Pressure: 152 /80 mmHg Diagnosis/ICD: R94.31-Abnormal electrocardiogram [ECG] [EKG]; R06.00-Dyspnea, unspecified Indication: COPD, Tobacco Abuse, Peripheral Vascular Disease, Left Femoral Artery Stent, TIA, Depression Procedure/CPT: Echo Complete w Full [id number] Study Detail: The following Echo studies were [...] 0.8 m/s (0.6-0.9m/s) PV Max P.3 mmHg [id number] Carmen Neely MD, FACC Electronically signed on 01/14/2022 at 5:13:15 PM Final Normal [facility] Echocardiography Please click on the link to view the study images Normal [facility] [employer] [address] [employer] Work Phone: Falls Screening (Age 18+)on 01-13-2022 Fall risk assessment a) No falls within the last year [facility] [employer] [address] [place] Work Phone: [facility] CARDIAC STRESS/REST INJE CTIONon 01-13-2022 [facility] CARDIAC STRESS/REST INJECTION Patient Name: ALEJO FLOYD STUDY: MYOCARDIAL PERFUSION STRESS TEST WITH LEXISCAN Performing facility: [facility], [address] [place] [address] Provider: Carmen Neely MD, FACC PCP: Dr. Caren Lacy Supervising provider: Grisel Woods MD, FACC INDICATION: Abnormal EKG; Dyspnea HISTORY: Gender: M; Age: 61 y/o ; Height: 177.8 cm; Weight: 74.8610475 kg. Abnormal EKG; SOB; COPD; PVD TIA Throat Cancer Currently smoking. COMPARISON: No comparison. ACCESSION NUMBER(S): [id number]; [id number]; [id number] ORDERING CLINICIAN: CARMEN NEELY TECHNIQUE: ONE DAY [...] Electronically signed by: YASH WOODARD MD Normal [facility] No Panel Informationon 01-13 Normal -[facility] 600 DO Work Phone: GLUCOSE, BLOOD (POC)on 12-23 Glucose [Mass/Vol] 102 mg/dL Abnormal 74 - 99 mg/dL [facility] Comment on above: Location:[facility], [address] [place] [address] , [place], [place], [address] The Accu-Chek Inform II glucose meter has [...] Interpretation and review of laboratory results Abnormal [facility] PET+CT Guidance for localiza tion of [...] any questions regarding this interpretation, please call [phone]. If you are unable to reach us at the number above, please feel free to contact [facility] e[facility]iology at [phone]. DIVISION OF RADIOLOGY * * *Final Report* [...] possibly secondary to muscle spasm or posture. [place] (topogram) images: No additional findings. DIVISION OF RADIOLOGY Provider, [facility] - 12/23/2021 * * *Final Report* [...] possibly secondary to muscle spasm or posture. [place] (topogram) images: No additional findings. IMPRESSION IMPRESSION: [...] any questions regarding this interpretation, please call [phone]. If you are unable to reach us at the number above, please feel free to contact [facility] at [phone]. [facility] Radiology Study observation (narrative) [facility] PET+CT Guidance for localiza tion of tumor of Skull base to mid-thigh-- W [id number] IVOrdered By: Ccf Provider on 12-23-2021 [facility] Falls Screening (Age 18+)on 11-27-2021 Adult depression screening assessment Yes -[facility] 250 DO Work Phone: Fall risk assessment c) Not medically indicated -[facility] 250 DO Work Phone: Tobacco use status CPHS a) Yes -[facility] 250 DO Work Phone: Falls Screening (Age 18+) Yes -[facility] [employer] 250 DO Work Phone: Falls Screening (Age 18+) 1-Several days [facility] [employer] 250 DO Work Phone: Falls Screening (Age 18+) 3-Nearly every day -[facility] 250 DO Work Phone: Falls Screening (Age 18+) 0-Not at all -[facility] 250 DO Work Phone: Falls Screening (Age 18+) Somewhat Difficult -[facility] 250 DO Work Phone: Office Visit (Cardiology)on [...] Echocardiogram; Status:Hold For - Scheduling,Retrospective Authorization; Requested for:[id number]; [place] Cardiac Stress/Rest Nuclear Med Order; Status:Hold For - Scheduling,Retrospective Authorization; Requested for:[id number]; Radiologist to Determine Optimal Study : Y [...] we can help. You may also call 0-468-PKVMKeystone HeartNOW for free resources and assistance.; Status:Complete - Retrospective Authorization; Done: [id number] Tobacco Use Screening; Status:Complete; Done: [id number] Unlinked Stop: amLODIPine Besylate 5 MG Oral [...] records from Dr. Shyanne Najera MD from [facility] Follow up in 6 months I, Arlette Strange LPN, am scribing for and in the presence of, Dr. Carmen Neely MD Chief Complaint ALEJO FLOYD is being seen for a consultation for SRE. 61-year-old -Iranian who is in my office for the first time to establish relationship with cardiology. The patient has history of active tobacco abuse and PAD involving mostly the left femoral artery where he had stenting done several years ago in [place]. He has no previous cardiac catheterizations or [...] BELLA PEREIRA Date: 2021-11-26 07:46 Normal [facility] CT LSLANSING WO CONon [address] [facility] CON EXAM: CT [facility] C ON HISTORY: DORSALGIA, UNSPECIFIED COMPARISON: CT [...] lithiasis 0.4 cm. Electronically authenticated by: DARIEN CISSEST Date: 2021-11-20 10:19 Normal [facility] ER URINE PROFILEon 2 Bilirubin Ql (U) Negative Normal NEGATIVE [facility] Comment on above: Performed By: #### E RUR #### [facility] [address] [place] [address] Dr. Herb Jones Clarity (U) CLEAR Normal CLEAR [facility] Comment on above: Performed By: #### E RUR #### [facility] [address] [place] [address] Dr. Herb Jones Color (U) YELLOW Normal YELLOW [facility] Comment on above: Performed By: #### E RUR #### [facility] [address] [place] [address] Dr. Herb Jones ERUAHD A micrscopic examina tion will be performed if indicated. Normal [facility] Comment on above: Performed By: #### E RUR #### [facility] [address] [place] [address] Dr. Herb Jones Glucose Ql (U) Negative Normal NEGATIVE [facility] Comment on above: Performed By: #### E RUR #### [facility] [address] [place] [address] Dr. Herb Jones Hemoglobin Ql (U) Negative Normal NEGATIVE [facility] Comment on above: Performed By: #### E RUR #### [facility] [address] [place] [address] Dr. Herb Jones Ketones Ql (U) Negative Normal NEGATIVE [facility] Comment on above: Performed By: #### E RUR #### [facility] [address] [place] [address] Dr. Herb Jones LEUKOCYTES Negative Normal NEGATIVE [facility] Comment on above: Performed By: #### E RUR #### [facility] [address] [place] [address] Dr. Herb Jones Nitrite Ql (U) Negative Normal NEGATIVE [facility] Comment on above: Performed By: #### E RUR #### [facility] [address] [address] [address] Herb Jones pH (U) 7.0 [pH] Normal 5-9 [facility] Comment on above: Performed By: #### E RUR #### [facility] [address] [place] [address] Dr. Herb Jones SPEC GRAVITY 1.015 Normal 1.005-<=1. 025 [facility] Comment on above: Performed By: #### E RUR #### [facility] [address] [place] [address] Dr. Herb Jones UA PROTEIN Negative Normal NEGATIVE/ TRACE [facility] Comment on above: Performed By: #### E RUR #### [facility] [address] [place] [address] Dr. Herb Jones UR MICRO IND NOT INDICATED Normal [facility] Comment on above: Performed By: #### E RUR #### [facility] [address] [place] [address] Dr. Herb Jones Urobilinogen Qn (U) 4 {Shon'U}/dL Abnormal 0.2 - 1.0 [facility] Comment on above: Performed By: #### E RUR #### [facility] [address] [place] [address] Dr. Herb Jones BASIC METABOLIC PANELon 05-2 -2021 Calcium [Mass/Vol] 8.6 mg/dL Normal 8.6-10.3 [facility] Comment on above: Order Comment: No: D o not add to previous draw Performed By: #### 0 0071, 31647, 88297 #### [facility] [address] [place] [address], [facility] Chloride [Moles/Vol] 108 mmol/L High 98-107 [facility] Comment on above: Order Comment: No: D o not add to previous draw Performed By: #### 0 0071, 61854, 44559 #### [facility] [address] [place] [address], [place] CO2 [Moles/Vol] 20 mmol/L Low 21-31 [facility] Comment on above: Order Comment: No: D o not add to previous draw Performed By: #### 0 0071, 84425, 92057 #### [facility] [address] [place] [address], [place] Creatinine [Mass/Vol] 0.83 mg/dL Normal 0.70-1.30 [facility] Comment on above: Order Comment: No: D o not add to previous draw Performed By: #### 0 0071, 64054, 43937 #### [facility] [address] [place] [address], [place] GFR/1.73 sq M.predicted among blacks MDRD (S/P/Bld) [Vol rate/Area] mL/min/{1.73_m2} Normal >60 [facility] Comment on above: Order Comment: No: D o not add to previous draw Performed By: #### 0 0071, 74847, 44126 #### [facility] [address] [place] [address], [place] GFR/1.73 sq M.predicted among non-blacks MDRD (S/P/Bld) [Vol rate/Area] mL/min/{1.73_m2} Normal >60 [facility] Comment on above: Order Comment: No: D o not add to previous draw Performed By: #### 0 0071, 73937, 99360 #### [facility] [address] [place] [address], [place] Glucose [Mass/Vol] 71 mg/dL Normal 70-100 [facility] Comment on above: Order Comment: No: D o not add to previous draw Performed By: #### 0 0071, 40291, 60023 #### [facility] [address] [place] [address], [place] Potassium [Moles/Vol] 3.2 mmol/L Low 3.5-5.1 [facility] Comment on above: Order Comment: No: D o not add to previous draw Performed By: #### 0 0071, 90313, 82717 #### [facility] [address] [place] [address], [facility] Sodium [Moles/Vol] 140 mmol/L Normal 136-145 [facility] Comment on above: Order Comment: No: D o not add to previous draw Performed By: #### 0 0071, 04503, 17282 #### [facility] [address] Urea nitrogen [Mass/Vol] 21 mg/dL Normal 7-25 [facility] Comment on above: Order Comment: No: D o not add to previous draw Performed By: #### 0 0071, 08901, 50451 #### [facility] [address] CBC W/DIFFon 09-20-2021 ABS IMM GRANS 0.0 10*3/uL Normal 0.0-0.2 [facility] Comment on above: Order Comment: No: D o not add to previous draw Performed By: #### 1 0070 #### [facility] [address] ABS NEUTROPHILS 2.3 10*3/uL Normal 1.6-7.6 [facility] Comment on above: Order Comment: No: D o not add to previous draw Performed By: #### 1 0070 #### [facility] [address] [place] [address], [facility] Basophils (Bld) [#/Vol] 0.0 10*3/uL Normal 0.0-0.2 [facility] Comment on above: Order Comment: No: D o not add to previous draw Performed By: #### 1 0070 #### [facility] [address] [place] [address], [facility] Basophils/100 WBC (Bld) 0.3 % Normal 0.0-1.0 [facility] Comment on above: Order Comment: No: D o not add to previous draw Performed By: #### 1 0070 #### [facility] [address] [place] [address], [facility] Eosinophils (Bld) [#/Vol] 0.0 10*3/uL Normal 0.0-0.5 [facility] Comment on above: Order Comment: No: D o not add to previous draw Performed By: #### 1 0070 #### [facility] [address] [place] [id number], [facility] Eosinophils/100 WBC (Bld) 0.5 % Normal 0.0-6.0 [facility] Comment on above: Order Comment: No: D o not add to previous draw Performed By: #### 1 0070 #### [facility] [address] [place] [address], [facility] Erythrocyte distribution width (RBC) [Ratio] 17.2 % High 11.5-15.0 [facility] Comment on above: Order Comment: No: D o not add to previous draw Performed By: #### 1 0070 #### [facility] [address] [facility] [facility] [address], [facility] Hematocrit (Bld) [Volume fraction] 32.6 % Low 39.0-50.0 [facility] Comment on above: Order Comment: No: D o not add to previous draw Performed By: #### 1 0070 #### [facility] [address] [facility] [facility] [place] [id number], [facility] Hemoglobin (Bld) [Mass/Vol] 10.7 g/dL Low 13.0-17.0 [facility] Comment on above: Order Comment: No: D o not add to previous draw Performed By: #### 1 0070 #### [facility] [address] [place] [id number], [facility] IMMATURE GRANS 0.3 % Normal 0.0-1.0 [facility] Comment on above: Order Comment: No: D o not add to previous draw Performed By: #### 1 0070 #### [facility] [address] [place] [address], [facility] Lymphocytes (Bld) [#/Vol] 0.8 10*3/uL Low 1.2-4.0 [facility] Comment on above: Order Comment: No: D o not add to previous draw Performed By: #### 1 0070 #### [facility] [address] [place] [address], [facility] Lymphocytes/100 WBC (Bld) 21.9 % Normal 20.0-45.0 [facility] Comment on above: Order Comment: No: D o not add to previous draw Performed By: #### 1 0070 #### [facility] [address] [place] [address], [facility] MCH (RBC) [Entitic mass] 33.9 pg High 27.0-33.0 [facility] Comment on above: Order Comment: No: D o not add to previous draw Performed By: #### 1 0070 #### [facility] [address] [place] [address], [facility] MCHC (RBC) [Mass/Vol] 32.8 g/dL Normal 32.0-35.0 [facility] Comment on above: Order Comment: No: D o not add to previous draw Performed By: #### 1 0070 #### [facility] [address] [place] [address], [facility] MCV (RBC) [Entitic vol] 103.2 fL High 82.0-98.0 [facility] Comment on above: Order Comment: No: D o not add to previous draw Performed By: #### 1 0070 #### [facility] [address] [place] [address], [facility] Monocytes (Bld) [#/Vol] 0.5 10*3/uL Normal 0.1-1.0 [facility] Comment on above: Order Comment: No: D o not add to previous draw Performed By: #### 1 0070 #### [facility] [address] [place] [address], [place] MONOS 13.9 % High 5.0-12.0 [facility] Comment on above: Order Comment: No: D o not add to previous draw Performed By: #### 1 0070 #### [facility] [address] [place] [address], [place] Neutrophils/100 WBC (Bld) 63.1 % Normal 40.0-72.0 [facility] Comment on above: Order Comment: No: D o not add to previous draw Performed By: #### 1 0070 #### [facility] [address] [place] [address], [place] Nucleated RBC/100 WBC (Bld) [Ratio] 0 % Normal 0-0 [facility] Comment on above: Order Comment: No: D o not add to previous draw Performed By: #### 1 0070 #### [facility] [address] [place] [address], [place] PLAT CNT 254 10*3/uL Normal 150-400 [facility] Comment on above: Order Comment: No: D o not add to previous draw Performed By: #### 1 0070 #### [facility] [address] [place] [address], [place] RBC (Bld) [#/Vol] 3.16 10*6/uL Low 4.20-5.70 [facility] Comment on above: Order Comment: No: D o not add to previous draw Performed By: #### 1 0070 #### [facility] [address] [place] [address], [place] WBC (Bld) [#/Vol] 3.66 10*3/uL Low 4.00-10.60 [facility] Comment on above: Order Comment: No: D o not add to previous draw Performed By: #### 1 0070 #### [facility] [address] [place] [address], [facility] MAGNESIUM BLOODon 09-20-2021 Magnesium [Mass/Vol] 1.8 mg/dL Low 1.9-2.7 [facility] Comment on above: Order Comment: No: D o not add to previous draw Performed By: #### 0 0071, 72871, 40187 #### [facility] [address] [place] [address], [facility] PHOSPHORUS BLOODon Phosphate [Mass/Vol] 1.8 mg/dL Low 2.5-5.0 [facility] Comment on above: Order Comment: No: D o not add to previous draw Performed By: #### 0 0071, 01675, 65359 #### [facility] [address] [place] [address], [facility] APTTon 09-19-2021 aPTT Coag (Bld) [Time] 25.3 s Normal 25.0-35.0 [facility] Comment on above: Order Comment: No: [...] THIS PURPOSE. Performed By: #### 0 0071, 09986, 24791 #### [facility] [address] [place] [address], [facility] BASIC METABOLIC PANELon 09-01 Calcium [Mass/Vol] 9.0 mg/dL Normal 8.6-10.3 [facility] Comment on above: Order Comment: No: D o not add to previous draw Performed By: #### 0 0071, 52130, 02119 #### [facility] [address] [place] [address], [place] Chloride [Moles/Vol] 104 mmol/L Normal 98-107 [facility] Comment on above: Order Comment: No: D o not add to previous draw Performed By: #### 0 0071, 71091, 33431 #### [facility] [address] [place] [address], [facility] CO2 [Moles/Vol] 23 mmol/L Normal 21-31 [facility] Comment on above: Order Comment: No: D o not add to previous draw Performed By: #### 0 0071, 88077, 56918 #### [facility] [address] [place] [address], [facility] Creatinine [Mass/Vol] 1.29 mg/dL Normal 0.70-1.30 [facility] Comment on above: Order Comment: No: D o not add to previous draw Performed By: #### 0 0071, 30271, 72557 #### [facility] [address] [place] [address], [facility] eGFR- non- 57 ml/min/1.73sq m Abnormal >60 [facility] Comment on above: Order Comment: No: D o not add to previous draw Performed By: #### 0 0071, 95202, 84628 #### [facility] [address] [place] [address], [facility] GFR/1.73 sq M.predicted among blacks MDRD (S/P/Bld) [Vol rate/Area] mL/min/{1.73_m2} Normal >60 [facility] Comment on above: Order Comment: No: D o not add to previous draw Performed By: #### 0 0071, 54413, 95901 #### [facility] [address] [place] [address], [facility] Glucose [Mass/Vol] 131 mg/dL High 70-100 [facility] Comment on above: Order Comment: No: D o not add to previous draw Performed By: #### 0 0071, 16670, 17469 #### [facility] [address] Potassium [Moles/Vol] 3.1 mmol/L Low 3.5-5.1 [facility] Comment on above: Order Comment: No: D o not add to previous draw Performed By: #### 0 0071, 60526, 27794 #### [facility] [address] [facility]. [address] Sodium [Moles/Vol] 141 mmol/L Normal 136-145 [facility] Comment on above: Order Comment: No: D o not add to previous draw Performed By: #### 0 0071, 22655, 73306 #### [facility] [address] Urea nitrogen [Mass/Vol] 40 mg/dL High 7-25 [facility] Comment on above: Order Comment: No: D o not add to previous draw Performed By: #### 0 0071, 47795, 10648 #### [facility] [address] CBC W/DIFFon 09-19-2021 ABS IMM GRANS 0.0 10*3/uL Normal 0.0-0.2 [facility] Comment on above: Performed By: #### 0 0071, 86443, 99764 #### [facility] [address] ABS NEUTROPHILS 3.2 10*3/uL Normal 1.6-7.6 [facility] Comment on above: Performed By: #### 0 0071, 93301, 79388 #### [facility] [address] [facility] [place] [address], [facility] Basophils (Bld) [#/Vol] 0.0 10*3/uL Normal 0.0-0.2 [facility] Comment on above: Performed By: #### 0 0071, 86267, 36407 #### [facility] [address] [facility] [place] [address], [facility] Basophils/100 WBC (Bld) 0.5 % Normal 0.0-1.0 [facility] Comment on above: Performed By: #### 0 007, , 31505 #### [facility] [address] [place] [address], [facility] Eosinophils (Bld) [#/Vol] 0.0 10*3/uL Normal 0.0-0.5 [facility] Comment on above: Performed By: #### 0 007, , 15773 #### [facility] [address] [facility] [place] [address], [facility] Eosinophils/100 WBC (Bld) 0.0 % Normal 0.0-6.0 [facility] Comment on above: Performed By: #### 0 007, , 37806 #### [facility] [address] [facility]. [address] Erythrocyte distribution width (RBC) [Ratio] 17.3 % High 11.5-15.0 [facility] Comment on above: Performed By: #### 0 007, , 87815 #### [facility] [address] [facility] [place] [address], [facility] Hematocrit (Bld) [Volume fraction] 37.6 % Low 39.0-50.0 [facility] Comment on above: Performed By: #### 0 007, , 01338 #### [facility] [address] [facility] [place] [address], [facility] Hemoglobin (Bld) [Mass/Vol] 12.7 g/dL Low 13.0-17.0 [facility] Comment on above: Performed By: #### 0 007, , 57328 #### [facility] [address] [facility] [place] [address], [facility] IMMATURE GRANS 0.2 % Normal 0.0-1.0 [facility] Comment on above: Performed By: #### 0 0071, 24866, 87177 #### [facility] [address] [facility] [address], [facility] Lymphocytes (Bld) [#/Vol] 0.6 10*3/uL Low 1.2-4.0 [facility] Comment on above: Performed By: #### 0 0071, , 01512 #### [facility] [address] [facility] [place] [address], [facility] Lymphocytes/100 WBC (Bld) 13.1 % Low 20.0-45.0 [facility] Comment on above: Performed By: #### 0 007, , 30531 #### [facility] [address] [place] [address], [facility] MCH (RBC) [Entitic mass] 34.0 pg High 27.0-33.0 [facility] Comment on above: Performed By: #### 0 007, , 72983 #### [facility] [address] [facility] [place] [address], [facility] MCHC (RBC) [Mass/Vol] 33.8 g/dL Normal 32.0-35.0 [facility] Comment on above: Performed By: #### 0 007, , 51782 #### [facility] [address] [facility] [place] [address], [facility] MCV (RBC) [Entitic vol] 100.5 fL High 82.0-98.0 [facility] Comment on above: Performed By: #### 0 0071, , 96829 #### [facility] [address] [place] [address], [facility] Monocytes (Bld) [#/Vol] 0.5 10*3/uL Normal 0.1-1.0 [facility] Comment on above: Performed By: #### 0 0071, , 17397 #### [facility] [address] [facility] [place] [address], [facility] MONOS 11.4 % Normal 5.0-12.0 [facility] Comment on above: Performed By: #### 0 0071, 94599, 24569 #### [facility] [address] [facility] [place] [address], [facility] Neutrophils/100 WBC (Bld) 74.8 % High 40.0-72.0 [facility] Comment on above: Performed By: #### 0 0071, 39265, 09170 #### [facility] [address] [facility] [place] [address], [facility] Nucleated RBC/100 WBC (Bld) [Ratio] 0 % Normal 0-0 [facility] Comment on above: Performed By: #### 0 0071, 69998, 60918 #### [facility] [address] [facility] [place] [address], [facility] PLAT CNT 257 10*3/uL Normal 150-400 [facility] Comment on above: Performed By: #### 0 0071, 74819, 72423 #### [facility] [address] [facility] [place] [address], [facility] RBC (Bld) [#/Vol] 3.74 10*6/uL Low 4.20-5.70 [facility] Comment on above: Performed By: #### 0 0071, 77003, 35539 #### [facility] [address] [facility] [place] [address], [facility] WBC (Bld) [#/Vol] 4.28 10*3/uL Normal 4.00-10.60 [facility] Comment on above: Performed By: #### 0 0071, 10469, 40139 #### [facility] [address] [facility] [place] [address], [facility] LACTATE WITH REFLEXon 2021 Lactate [Moles/Vol] 1.2 mmol/L Normal .5-2.2 [facility] Comment on above: Order Comment: No: D o not add to previous draw Performed By: #### 3 1414 #### [facility] [address] [place] [address], [place] LIVER BATTERYon 09-19-2021 Albumin [Mass/Vol] 4.0 g/dL Normal 3.5-5.7 [facility] Comment on above: Order Comment: No: D o not add to previous draw Performed By: #### 0 0071, 94721, 04279 #### [facility] [address] [place] [address], [place] ALKALINE PHOSPH 77 IU/L Normal 34-104 [facility] Comment on above: Order Comment: No: D o not add to previous draw Performed By: #### 0 0071, 32640, 66375 #### [facility] [address] [place] [address], [place] ALT [Catalytic activity/Vol] 15 U/L Normal 7-52 [facility] Comment on above: Order Comment: No: D o not add to previous draw Performed By: #### 0 0071, 50660, 26512 #### [facility] [address] [place] [address], [place] AST [Catalytic activity/Vol] 16 U/L Normal 13-39 [facility] Comment on above: Order Comment: No: D o not add to previous draw Performed By: #### 0 0071, 05705, 68669 #### [facility] [address] [place] [address], [place] Bilirubin [Mass/Vol] 1.6 mg/dL High 0.3-1.0 [facility] Comment on above: Order Comment: No: D o not add to previous draw Performed By: #### 0 0071, 64788, 99778 #### [facility] [address] [place] [address], [place] Bilirubin.direct [Mass/Vol] 0.5 mg/dL High 0.0-0.2 [facility] Comment on above: Order Comment: No: D o not add to previous draw Performed By: #### 0 0071, 77812, 61995 #### [facility] [address] [place] [address], [facility] Protein [Mass/Vol] 7.0 g/dL Normal 6.0-8.3 [facility] Comment on above: Order Comment: No: D o not add to previous draw Performed By: #### 0 0071, 38768, 62820 #### [facility] [address] [place] [address], [facility] MAGNESIUM BLOODon 09-19-2021 Magnesium [Mass/Vol] 2.4 mg/dL Normal 1.9-2.7 [facility] Comment on above: Order Comment: No: D o not add to previous draw Performed By: #### 1 0070 #### [facility] [address] [place] [address], [facility] Magnesium [Mass/Vol] 1.9 mg/dL Normal 1.9-2.7 [facility] Comment on above: Order Comment: No: D o not add to previous draw Performed By: #### 0 0071, 00792, 80331 #### [facility] [address] [place] [address], [facility] PHOSPHORUS BLOODon 2 Phosphate [Mass/Vol] 2.8 mg/dL Normal 2.5-5.0 [facility] Comment on above: Order Comment: No: D o not add to previous draw Performed By: #### 0 0071, 69184, 96796 #### [facility] [address] [place] [address], [place] PROTHROMBIN TIMEon 2 INR Coag (PPP) [Relative time] 1.16 {INR} Normal 0.91-1.16 [facility] Comment on above: Order Comment: No: [...] CHEST 1995;[id number]. Performed By: #### 0 0071, 38748, 97229 #### [facility] [address] PT Coag (PPP) [Time] 14.7 s Normal 12.3-14.8 [facility] Comment on above: Order Comment: No: D o not add to previous draw Result Comment: ALL RESULTS MUST BE INTERPRETED WITH RESPECT TO BLOOD DRAWING ARTIFACT OR DILUTION ERROR OF ANTICOAGULANT AT THE TIME OF SAMPLING. Performed By: #### 0 0071, 79109, 44566 #### [facility] [address] [facility]. [address] CBC W Auto Differential pane l (Bld)on 09-16-2021 Abs Immature Gran 0.04 k/uL <0.10 k/uL [facility] Basophils (Bld) [#/Vol] 10*3/uL <0.11 k/uL [facility] Basophils/100 WBC (Bld) 0.2 % [facility] Differential cell count method Nom (Bld) Auto [facility] Eosinophils (Bld) [#/Vol] 10*3/uL <0.46 k/uL [facility] Eosinophils/100 WBC (Bld) 0.2 % [facility] Erythrocyte distribution width (RBC) [Ratio] 18.2 % High 11.5 - 15.0 % [facility] Hematocrit (Bld) [Volume fraction] 40.7 % 39.0 - 51.0 % [facility] Hemoglobin (Bld) [Mass/Vol] 13.5 g/dL 13.0 - 17.0 g/dL [facility] Immature Gran % 0.6 % [facility] Lymphocytes (Bld) [#/Vol] 0.67 10*3/uL Low 1.00 - 4.00 k/uL [facility] Lymphocytes/100 WBC (Bld) 10.9 % [facility] MCH (RBC) [Entitic mass] 33.8 pg 26.0 - 34.0 pg [facility] MCHC (RBC) [Mass/Vol] 33.2 g/dL 30.5 - 36.0 g/dL [facility] MCV (RBC) [Entitic vol] 102.0 fL High 80.0 - 100.0 fL [facility] Monocytes (Bld) [#/Vol] 0.38 10*3/uL <0.87 k/uL [facility] Monocytes/100 WBC (Bld) 6.2 % [facility] Neutrophils (Bld) [#/Vol] 5.06 10*3/uL 1.45 - 7.50 k/uL [facility] Neutrophils/100 WBC (Bld) 81.9 % [facility] Nucleated RBC (Bld) [#/Vol] 10*3/uL <0.01 k/uL [facility] Nucleated RBC/100 WBC (Bld) [Ratio] 0.0 /100 WBC [facility] Platelet mean volume (Bld) [Entitic vol] 8.7 fL Low 9.0 - 12.7 fL [facility] Platelets (Bld) [#/Vol] 268 10*3/uL 150 - 400 k/uL [facility] RBC (Bld) [#/Vol] 3.99 10*6/uL Low 4.20 - 6.00 m/uL [facility] WBC (Bld) [#/Vol] 6.17 10*3/uL 3.70 - 11.00 k/uL [facility] Comprehensive metabolic 2000 panelon 09-16-2021 Albumin [Mass/Vol] 5.1 g/dL High 3.9 - 4.9 g/dL [facility] ALP [Catalytic activity/Vol] 104 U/L 38 - 113 U/L [facility] ALT [Catalytic activity/Vol] 17 U/L 10 - 54 U/L [facility] Anion gap [Moles/Vol] 17 mmol/L 9 - 18 mmol/L [facility] AST [Catalytic activity/Vol] [facility] Bilirubin [Mass/Vol] 1.3 mg/dL 0.2 - 1 .3 mg/dL [facility] Calcium [Mass/Vol] 10.6 mg/dL High 8.5 - 10. 2 mg/dL [facility] Chloride [Moles/Vol] 99 mmol/L 97 - 10 5 mmol/L [facility] CO2 [Moles/Vol] 20 mmol/L Low 22 - 30 mmol/L [facility] Creatinine [Mass/Vol] 1.91 mg/dL High 0.73 - 1.22 mg/dL [facility] Estimated Glomerular Filtration Rate 40 mL/min/1.73m Low >=60 mL/min/1.7 3m [facility] Glucose [Mass/Vol] 162 mg/dL High 74 - 99 mg/dL [facility] Potassium [Moles/Vol] 4.5 mmol/L 3.7 - 5.1 mmol/L [facility] Protein [Mass/Vol] 8.4 g/dL High 6.3 - 8.0 g/dL [facility] Sodium [Moles/Vol] 136 mmol/L 136 - 144 mmol/L [facility] Urea nitrogen [Mass/Vol] 35 mg/dL High 9 - 24 mg/dL [facility] CBC W Auto Differential pane l (Bld)on 08-26-2021 Abs Immature Gran 0.08 k/uL <0.10 k/uL [facility] Basophils (Bld) [#/Vol] 10*3/uL <0.11 k/uL [facility] Basophils/100 WBC (Bld) 0.2 % [facility] Differential cell count method Nom (Bld) Auto [facility] Eosinophils (Bld) [#/Vol] 0.05 10*3/uL <0.46 k/uL [facility] Eosinophils/100 WBC (Bld) 0.6 % [facility] Erythrocyte distribution width (RBC) [Ratio] 16.5 % High 11.5 - 15.0 % [facility] Hematocrit (Bld) [Volume fraction] 36.5 % Low 39.0 - 51.0 % [facility] Hemoglobin (Bld) [Mass/Vol] 11.9 g/dL Low 13.0 - 17.0 g/dL [facility] Immature Gran % 0.9 % [facility] Lymphocytes (Bld) [#/Vol] 1.39 10*3/uL 1.00 - 4.00 k/uL [facility] Lymphocytes/100 WBC (Bld) 15.6 % [facility] MCH (RBC) [Entitic mass] 32.2 pg 26.0 - 34.0 pg [facility] MCHC (RBC) [Mass/Vol] 32.6 g/dL 30.5 - 36.0 g/dL [facility] MCV (RBC) [Entitic vol] 98.6 fL 80.0 - 100.0 fL [facility] Monocytes (Bld) [#/Vol] 0.84 10*3/uL <0.87 k/uL [facility] Monocytes/100 WBC (Bld) 9.4 % [facility] Neutrophils (Bld) [#/Vol] 6.52 10*3/uL 1.45 - 7.50 k/uL [facility] Neutrophils/100 WBC (Bld) 73.3 % [facility] Nucleated RBC (Bld) [#/Vol] 10*3/uL <0.01 k/uL [facility] Nucleated RBC/100 WBC (Bld) [Ratio] 0.0 /100 WBC [facility] Platelet mean volume (Bld) [Entitic vol] 9.6 fL 9.0 - 12.7 fL [facility] Platelets (Bld) [#/Vol] 259 10*3/uL 150 - 400 k/uL [facility] RBC (Bld) [#/Vol] 3.70 10*6/uL Low 4.20 - 6.00 m/uL [facility] WBC (Bld) [#/Vol] 8.90 10*3/uL 3.70 - 11.00 k/uL [facility] Comprehensive metabolic 2000 panelon 08-26-2021 Albumin [Mass/Vol] 4.5 g/dL 3.9 - 4.9 g/dL [facility] ALP [Catalytic activity/Vol] 84 U/L 38 - 113 U/L [facility] ALT [Catalytic activity/Vol] 16 U/L 10 - 54 U/L [facility] Anion gap [Moles/Vol] 15 mmol/L 9 - 18 mmol/L [facility] AST [Catalytic activity/Vol] [facility] Bilirubin [Mass/Vol] 0.6 mg/dL 0.2 - 1 .3 mg/dL [facility] Calcium [Mass/Vol] 9.6 mg/dL 8.5 - 10. 2 mg/dL [facility] Chloride [Moles/Vol] 106 mmol/L High 97 - 10 5 mmol/L [facility] CO2 [Moles/Vol] 19 mmol/L Low 22 - 30 mmol/L [facility] Creatinine [Mass/Vol] 1.01 mg/dL 0.73 - 1.22 mg/dL [facility] Estimated Glomerular Filtration Rate 85 mL/min/1.73m >=60 mL/min/1.7 3m [facility] Glucose [Mass/Vol] 95 mg/dL 74 - 99 mg/dL [facility] Potassium [Moles/Vol] 4.7 mmol/L 3.7 - 5.1 mmol/L [facility] Protein [Mass/Vol] 7.2 g/dL 6.3 - 8.0 g/dL [facility] Sodium [Moles/Vol] 140 mmol/L 136 - 144 mmol/L [facility] Urea nitrogen [Mass/Vol] 17 mg/dL 9 - 24 mg/dL [facility] CT CHEST W IVCONon 2 CT CHEST W IVCON * * *Final Report* * * DATE OF EXAM: Jun 20 2021 3:43PM [facility] 0539 - CT CHEST W IVCON [...] seen and may be atrophied or absent. [place] (topogram) images: No additional findings. IMPRESSION: 1. [...] centrilobular emphysema with an upper lobe predominance. [facility] Transcribe Date/Time: Jun 21 2021 5:58A Dictated by : DARIEN PARIKH MD This examination was interpreted and the report reviewed and electronically signed by: DARIEN PARIKH MD on Jun 21 2021 6:26AM EST [id number] Normal [facility] CT NECK SOFT TISSUE W IVCONo n 06-20-2021 CT NECK SOFT TISSUE W IVCON * * *Final Report* * * DATE OF EXAM: Jun 20 2021 3:43PM [facility] 0013 - CT NECK SOFT TISSUE [...] was performed concurrently and is dictated separately. [place] (topogram) images: No significant findings. 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 Residual pathologic right level II lymphadenopathy, suspect increased in size since PET/CT of 04/05/2021. No discrete new pathologic lymph nodes. Chronically occluded left ICA. 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 HISTORY PHYSICALon 2 HISTORY PHYSICAL HNO ID: [id number] Author: Ana Hernandez APRN.SILVINO Service: ? Author [...] results from OSH - Follow up with Ruf on the same day as [facility] appt [...] disease, liver (more content not included)... Normal [facility] HISTORY PHYSICAL HNO ID: [id number] Author: Ana Hernandez APRN.SILVINO Service: ? Author [...] fevers. Neurological: No history of TIA's, stroke, [employer] tumor, impaired sensorium, hemiplegia, paraplegia or quadraplegia. No neurological symptoms or problems. Respiratory: No history of current cough or dyspnea, or pneumonia in the past 6 weeks. No history of respiratory/pulmonary symptoms or problems. Cardiovascular: No history of HTN requiring medication, no history of angina, CHF, MD, cardiac surgery or stents. Denies rest pain, [...] 90 mc (more content not included)... Normal [facility] BASIC METABOLIC PANELon 05-05 Calcium [Mass/Vol] 8.6 mg/dL Normal 8.6-10.3 [facility] Comment on above: Order Comment: No: D o not add to previous draw Performed By: #### 0 0071, 05665, 31424 #### [facility] [address] [place] [address], [facility] Chloride [Moles/Vol] 109 mmol/L High 98-107 [facility] Comment on above: Order Comment: No: D o not add to previous draw Performed By: #### 0 0071, 41955, 94678 #### [facility] [address] [place] [address], [facility] CO2 [Moles/Vol] 23 mmol/L Normal 21-31 [facility] Comment on above: Order Comment: No: D o not add to previous draw Performed By: #### 0 0071, 58530, 86579 #### [facility] [address] [place] [id number], [facility] Creatinine [Mass/Vol] 0.82 mg/dL Normal 0.70-1.30 [facility] Comment on above: Order Comment: No: D o not add to previous draw Performed By: #### 0 0071, 53965, 09224 #### [facility] [address] [place] [address], [place] GFR/1.73 sq M.predicted among blacks MDRD (S/P/Bld) [Vol rate/Area] mL/min/{1.73_m2} Normal >60 [facility] Comment on above: Order Comment: No: D o not add to previous draw Performed By: #### 0 0071, 71981, 43295 #### [facility] [address] [place] [address], [place] GFR/1.73 sq M.predicted among non-blacks MDRD (S/P/Bld) [Vol rate/Area] mL/min/{1.73_m2} Normal >60 [facility] Comment on above: Order Comment: No: D o not add to previous draw Performed By: #### 0 0071, 30336, 49103 #### [facility] [address] [place] [address], [place] Glucose [Mass/Vol] 117 mg/dL High 70-100 [facility] Comment on above: Order Comment: No: D o not add to previous draw Performed By: #### 0 0071, 17447, 99950 #### [facility] [address] [place] [address], [place] Potassium [Moles/Vol] 3.4 mmol/L Low 3.5-5.1 [facility] Comment on above: Order Comment: No: D o not add to previous draw Performed By: #### 0 0071, 00179, 71428 #### [facility] [address] [place] [address], [place] Sodium [Moles/Vol] 139 mmol/L Normal 136-145 [facility] Comment on above: Order Comment: No: D o not add to previous draw Performed By: #### 0 0071, 13831, 29765 #### [facility] [address] [place] [address], [facility] Urea nitrogen [Mass/Vol] 12 mg/dL Normal 7-25 [facility] Comment on above: Order Comment: No: D o not add to previous draw Performed By: #### 0 0071, 13715, 63842 #### [facility] [address] [place] [address], [facility] CBC COMPLETE BLOOD COUNTon 05-30-2021 Erythrocyte distribution width (RBC) [Ratio] 12.9 % Normal 11.5-15.0 [facility] Comment on above: Order Comment: No: D o not add to previous draw Performed By: #### 0 0071, 46814, 20424 #### [facility] [address] [place] [address], [facility] Hematocrit (Bld) [Volume fraction] 34.7 % Low 39.0-50.0 [facility] Comment on above: Order Comment: No: D o not add to previous draw Performed By: #### 0 0071, 40803, 79078 #### [facility] [address] [place] [address], [facility] Hemoglobin (Bld) [Mass/Vol] 11.3 g/dL Low 13.0-17.0 [facility] Comment on above: Order Comment: No: D o not add to previous draw Performed By: #### 0 0071, 92923, 45862 #### [facility] [address] [place] [address], [facility] MCH (RBC) [Entitic mass] 32.7 pg Normal 27.0-33.0 [facility] Comment on above: Order Comment: No: D o not add to previous draw Performed By: #### 0 0071, 22865, 31140 #### [facility] [address] [place] [address], [place] MCHC (RBC) [Mass/Vol] 32.6 g/dL Normal 32.0-35.0 [facility] Comment on above: Order Comment: No: D o not add to previous draw Performed By: #### 0 0071, 10090, 02929 #### [facility] [address] [address], [facility] MCV (RBC) [Entitic vol] 100.3 fL High 82.0-98.0 [facility] Comment on above: Order Comment: No: D o not add to previous draw Performed By: #### 0 0071, 52703, 39750 #### [facility] [address] [facility] [place] [address], [facility] Nucleated RBC/100 WBC (Bld) [Ratio] 0 % Normal 0-0 [facility] Comment on above: Order Comment: No: D o not add to previous draw Performed By: #### 0 0071, 71775, 90666 #### [facility] [address] [facility] [place] [address], [facility] PLAT CNT 335 10*3/uL Normal 150-400 [facility] Comment on above: Order Comment: No: D o not add to previous draw Performed By: #### 0 0071, 14446, 87240 #### [facility] [address] [facility] [place] [address], [facility] RBC (Bld) [#/Vol] 3.46 10*6/uL Low 4.20-5.70 [facility] Comment on above: Order Comment: No: D o not add to previous draw Performed By: #### 0 0071, 12434, 83902 #### [facility] [address] [facility] [place] [address], [facility] WBC (Bld) [#/Vol] 7.24 10*3/uL Normal 4.00-10.60 [facility] Comment on above: Order Comment: No: D o not add to previous draw Performed By: #### 0 0071, 64538, 62263 #### [facility] [address] [place] [id number], [facility] MAGNESIUM BLOODon 05-30-2021 Magnesium [Mass/Vol] 1.7 mg/dL Low 1.9-2.7 [facility] Comment on above: Order Comment: No: D o not add to previous draw Performed By: #### 0 0071, 71206, 14806 #### [facility] [address] [place] [address], [facility] PHOSPHORUS BLOODon Phosphate [Mass/Vol] 1.7 mg/dL Low 2.5-5.0 [facility] Comment on above: Order Comment: No: D o not add to previous draw Performed By: #### 0 0071, 38680, 96414 #### [facility] [address] [place] [address], [facility] BASIC METABOLIC PANELon 05-05 Calcium [Mass/Vol] 8.7 mg/dL Normal 8.6-10.3 [facility] Comment on above: Order Comment: No: D o not add to previous draw Performed By: #### 1 69, 83281 #### [facility] [address] [place] [address], [place] Chloride [Moles/Vol] 105 mmol/L Normal 98-107 [facility] Comment on above: Order Comment: No: D o not add to previous draw Performed By: #### 1 69, 02537 #### [facility] [address] [place] [address], [place] CO2 [Moles/Vol] 19 mmol/L Low 21-31 [facility] Comment on above: Order Comment: No: D o not add to previous draw Performed By: #### 1 0, 80087 #### [facility] [address] [place] [address], [place] Creatinine [Mass/Vol] 0.91 mg/dL Normal 0.70-1.30 [facility] Comment on above: Order Comment: No: D o not add to previous draw Performed By: #### 1 69, 19363 #### [facility] [address] [place] [address], [place] GFR/1.73 sq M.predicted among blacks MDRD (S/P/Bld) [Vol rate/Area] mL/min/{1.73_m2} Normal >60 [facility] Comment on above: Order Comment: No: D o not add to previous draw Performed By: #### 1 69, 29229 #### [facility] [address] [place] [address], [place] GFR/1.73 sq M.predicted among non-blacks MDRD (S/P/Bld) [Vol rate/Area] mL/min/{1.73_m2} Normal >60 [facility] Comment on above: Order Comment: No: D o not add to previous draw Performed By: #### 1 69, 21420 #### [facility] [address] [place] [address], [place] Glucose [Mass/Vol] 63 mg/dL Low 70-100 [facility] Comment on above: Order Comment: No: D o not add to previous draw Performed By: #### 1 69, 69028 #### [facility] [address] [place] [address], [place] Potassium [Moles/Vol] 3.8 mmol/L Normal 3.5-5.1 [facility] Comment on above: Order Comment: No: D o not add to previous draw Performed By: #### 1 69, 36315 #### [facility] [address] [place] [address], [place] Sodium [Moles/Vol] 139 mmol/L Normal 136-145 [facility] Comment on above: Order Comment: No: D o not add to previous draw Performed By: #### 1 69, 89452 #### [facility] [address] [place] [address], [place] Urea nitrogen [Mass/Vol] 24 mg/dL Normal 7-25 [facility] Comment on above: Order Comment: No: D o not add to previous draw Performed By: #### 1 0070, 73710 #### [facility] [address] [place] [address], [facility] CBC COMPLETE BLOOD COUNTon 0 05-29-2021 Erythrocyte distribution width (RBC) [Ratio] 13.0 % Normal 11.5-15.0 [facility] Comment on above: Order Comment: No: D o not add to previous draw Performed By: #### 0 0071, 25632, 39281 #### [facility] [address] [place] [address], [facility] Hematocrit (Bld) [Volume fraction] 35.3 % Low 39.0-50.0 [facility] Comment on above: Order Comment: No: D o not add to previous draw Performed By: #### 0 0071, 59349, 61503 #### [facility] [address] [place] [address], [facility] Hemoglobin (Bld) [Mass/Vol] 11.5 g/dL Low 13.0-17.0 [facility] Comment on above: Order Comment: No: D o not add to previous draw Performed By: #### 0 0071, 29002, 03447 #### [facility] [address] [place] [address], [place] MCH (RBC) [Entitic mass] 32.8 pg Normal 27.0-33.0 [facility] Comment on above: Order Comment: No: D o not add to previous draw Performed By: #### 0 0071, 22890, 79771 #### [facility] [address] [place] [address], [place] MCHC (RBC) [Mass/Vol] 32.6 g/dL Normal 32.0-35.0 [facility] Comment on above: Order Comment: No: D o not add to previous draw Performed By: #### 0 0071, 31061, 62949 #### [facility] [address] MCV (RBC) [Entitic vol] 100.6 fL High 82.0-98.0 [facility] Comment on above: Order Comment: No: D o not add to previous draw Performed By: #### 0 0071, 66384, 84527 #### [facility] [address] [place] [address], [facility] Nucleated RBC/100 WBC (Bld) [Ratio] 0 % Normal 0-0 [facility] Comment on above: Order Comment: No: D o not add to previous draw Performed By: #### 0 0071, 90181, 38218 #### [facility] [address] [place] [address], [facility] PLAT CNT 325 10*3/uL Normal 150-400 [facility] Comment on above: Order Comment: No: D o not add to previous draw Performed By: #### 0 0071, 09985, 14650 #### [facility] [address] [place] [address], [facility] RBC (Bld) [#/Vol] 3.51 10*6/uL Low 4.20-5.70 [facility] Comment on above: Order Comment: No: D o not add to previous draw Performed By: #### 0 0071, 86429, 21517 #### [facility] [address] [place] [address], [facility] WBC (Bld) [#/Vol] 7.96 10*3/uL Normal 4.00-10.60 [facility] Comment on above: Order Comment: No: D o not add to previous draw Performed By: #### 0 0071, 87941, 67386 #### [facility] [address] [place] [address], [facility] MAGNESIUM BLOODon 05-29-2021 Magnesium [Mass/Vol] 1.8 mg/dL Low 1.9-2.7 [facility] Comment on above: Order Comment: No: D o not add to previous draw Performed By: #### 1 0070, 47054 #### [address] POC GLUCOSE LABon 05-29-2021 Glucose [Mass/Vol] 167 mg/dL High 70-100 [facility] Comment on above: Performed By: #### 0 0071, 30688, 09400 #### [facility] [address] [facility] [place] [address], [facility] ABDOMEN 1 VWon 05-28-[address] [facility] Department of Radiology [address] [place] [id number] Patient Name: ALEJO FLOYD : 1960 Sex: M Age: Race: Black Pt. Location: [facility] Patient Status: I Ordered Date: 05/28/2021 6:00:00 AM Completed Date: 05/28/2021 10:24 AM Requesting Provider: JOAQUIN SALINAS Attending Provider: RADHA WEINER Report Copy To: Signs & Symptoms: Abdomen Pain Generalized History: Comments: Obstruction Exam: ABDOMEN 1 ABDOMEN 1 05/28/2021 10:24 AM CLINICAL INDICATIONS: Abdomen Pain [...] obstruction. Electronically signed: Kenzie Chi. Transcribed by: [email or web address], User Resident: Electronically Signed by: KENZIE CHI @ 05/28/2021 11:00 AM Normal [facility] Comment on above: Order Comment: No: D o not add to previous draw BASIC METABOLIC PANELon 05-05 Calcium [Mass/Vol] 9.0 mg/dL Normal 8.6-10.3 [facility] Comment on above: Order Comment: No: D o not add to previous draw Performed By: #### 0 0071, 14950, 65273 #### [facility] [address] [place] [address], [facility] Chloride [Moles/Vol] 103 mmol/L Normal 98-107 [facility] Comment on above: Order Comment: No: D o not add to previous draw Performed By: #### 0 0071, 91793, 29820 #### [facility] [address] [place] [address], [place] CO2 [Moles/Vol] 19 mmol/L Low 21-31 [facility] Comment on above: Order Comment: No: D o not add to previous draw Performed By: #### 0 0071, 46605, 27038 #### [facility] [address] [place] [address], [place] Creatinine [Mass/Vol] 1.38 mg/dL High 0.70-1.30 [facility] Comment on above: Order Comment: No: D o not add to previous draw Performed By: #### 0 0071, 65263, 35088 #### [facility] [address] [place] [address], [place] eGFR- non- 53 ml/min/1.73sq m Abnormal >60 [facility] Comment on above: Order Comment: No: D o not add to previous draw Performed By: #### 0 0071, 38325, 21087 #### [facility] [address] [place] [address], [place] GFR/1.73 sq M.predicted among blacks MDRD (S/P/Bld) [Vol rate/Area] mL/min/{1.73_m2} Normal >60 [facility] Comment on above: Order Comment: No: D o not add to previous draw Performed By: #### 0 0071, 85363, 84908 #### [facility] [address] [place] [address], [place] Glucose [Mass/Vol] 79 mg/dL Normal 70-100 [facility] Comment on above: Order Comment: No: D o not add to previous draw Performed By: #### 0 0071, 87778, 72263 #### [facility] [address] [place] [address], [place] Potassium [Moles/Vol] 3.9 mmol/L Normal 3.5-5.1 [facility] Comment on above: Order Comment: No: D o not add to previous draw Performed By: #### 0 0071, 19312, 08789 #### [facility] [address] [place] [address], [place] Sodium [Moles/Vol] 138 mmol/L Normal 136-145 [facility] Comment on above: Order Comment: No: D o not add to previous draw Performed By: #### 0 0071, 42945, 75119 #### [facility] [address] [place] [address], [place] Urea nitrogen [Mass/Vol] 38 mg/dL High 7-25 [facility] Comment on above: Order Comment: No: D o not add to previous draw Performed By: #### 0 0071, 96992, 91161 #### [facility] [address] [place] [address], [place] CBC W/DIFFon 05-28-2021 ABS NEUTROPHILS 5.9 10*3/uL Normal 1.6-7.6 [facility] Comment on above: Order Comment: No: D o not add to previous draw Performed By: #### 0 0071, 71285, 84450 #### [facility] [address] [place] [address], [facility] ANISO Moderate Normal [facility] Comment on above: Order Comment: No: D o not add to previous draw Performed By: #### 0 0071, 55295, 62574 #### [facility] [address] [place] [address], [facility] Basophils (Bld) [#/Vol] 0.0 10*3/uL Normal 0.0-0.2 [facility] Comment on above: Order Comment: No: D o not add to previous draw Performed By: #### 0 0071, 27519, 05820 #### [facility] [address] [place] [address], [facility] Basophils/100 WBC (Bld) 0.0 % Normal 0.0-1.0 [facility] Comment on above: Order Comment: No: D o not add to previous draw Performed By: #### 0 0071, 47643, 79009 #### [facility] [address] [place] [address], [facility] Eosinophils (Bld) [#/Vol] 0.0 10*3/uL Normal 0.0-0.5 [facility] Comment on above: Order Comment: No: D o not add to previous draw Performed By: #### 0 0071, 97606, 26280 #### [facility] [address] [place] [address], [facility] Eosinophils/100 WBC (Bld) 0.0 % Normal 0.0-6.0 [facility] Comment on above: Order Comment: No: D o not add to previous draw Performed By: #### 0 0071, 07950, 66856 #### [facility] [address] [place] [address], [facility] Erythrocyte distribution width (RBC) [Ratio] 13.0 % Normal 11.5-15.0 [facility] Comment on above: Order Comment: No: D o not add to previous draw Performed By: #### 0 0071, 51545, 94807 #### [facility] [address] [place] [address], [facility] GIANT PLATELETS Present Normal [facility] Comment on above: Order Comment: No: D o not add to previous draw Performed By: #### 0 0071, 48196, 75229 #### [facility] [address] [place] [address], [facility] Hematocrit (Bld) [Volume fraction] 40.4 % Normal 39.0-50.0 [facility] Comment on above: Order Comment: No: D o not add to previous draw Performed By: #### 0 0071, 78168, 09722 #### [facility] [address] [place] [address], [facility] Hemoglobin (Bld) [Mass/Vol] 12.7 g/dL Low 13.0-17.0 [facility] Comment on above: Order Comment: No: D o not add to previous draw Performed By: #### 0 0071, 37844, 06785 #### [facility] [address] [place] [id number], [facility] Lymphocytes (Bld) [#/Vol] 1.7 10*3/uL Normal 1.2-4.0 [facility] Comment on above: Order Comment: No: D o not add to previous draw Performed By: #### 0 0071, 69466, 00576 #### [facility] [address] [place] [address], [place] Lymphocytes/100 WBC (Bld) 18.4 % Low 20.0-45.0 [facility] Comment on above: Order Comment: No: D o not add to previous draw Performed By: #### 0 0071, 18924, 89629 #### [facility] [address] [place] [address], [facility] MACRO Moderate Normal [facility] Comment on above: Order Comment: No: D o not add to previous draw Performed By: #### 0 0071, 88797, 33328 #### [facility] [address] [place] [id number], [facility] MCH (RBC) [Entitic mass] 32.6 pg Normal 27.0-33.0 [facility] Comment on above: Order Comment: No: D o not add to previous draw Performed By: #### 0 0071, 71735, 44204 #### [facility] [address] [place] [address], [facility] MCHC (RBC) [Mass/Vol] 31.4 g/dL Low 32.0-35.0 [facility] Comment on above: Order Comment: No: D o not add to previous draw Performed By: #### 0 0071, , 42568 #### [facility] [address] [place] [address], [facility] MCV (RBC) [Entitic vol] 103.9 fL High 82.0-98.0 [facility] Comment on above: Order Comment: No: D o not add to previous draw Performed By: #### 0 0071, 96640, 70628 #### [facility] [address] [address], [facility] Monocytes (Bld) [#/Vol] 1.5 10*3/uL High 0.1-1.0 [facility] Comment on above: Order Comment: No: D o not add to previous draw Performed By: #### 0 0071, 81247, 52837 #### [facility] [address] [place] [id number], [facility] MONOS 16.5 % High 5.0-12.0 [facility] Comment on above: Order Comment: No: D o not add to previous draw Performed By: #### 0 0071, 05006, 23342 #### [facility] [address] [place] [address], [facility] MYELOS 1.8 % High 0.0-0.0 [facility] Comment on above: Order Comment: No: D o not add to previous draw Performed By: #### 0 0071, 16308, 51886 #### [facility] [address] [place] [address], [facility] Neutrophils/100 WBC (Bld) 63.3 % Normal 40.0-72.0 [facility] Comment on above: Order Comment: No: D o not add to previous draw Performed By: #### 0 0071, 59310, 64110 #### [facility] [address] [place] [address], [facility] Nucleated RBC/100 WBC (Bld) [Ratio] 0 % Normal 0-0 [facility] Comment on above: Order Comment: No: D o not add to previous draw Performed By: #### 0 0071, 20359, 10049 #### [facility] [address] [place] [address], [place] PLAT CNT 353 10*3/uL Normal 150-400 [facility] Comment on above: Order Comment: No: D o not add to previous draw Performed By: #### 0 0071, 28031, 01698 #### [facility] [address] [place] [address], [place] RBC (Bld) [#/Vol] 3.89 10*6/uL Low 4.20-5.70 [facility] Comment on above: Order Comment: No: D o not add to previous draw Performed By: #### 0 0071, 78295, 66826 #### [facility] [address] [place] [address], [place] WBC (Bld) [#/Vol] 9.26 10*3/uL Normal 4.00-10.60 [facility] Comment on above: Order Comment: No: D o not add to previous draw Performed By: #### 0 0071, 34763, 40368 #### [facility] [address] [place] [address], [facility] ABS IMM GRANS 0.1 10*3/uL Normal 0.0-0.2 [facility] Comment on above: Performed By: #### 0 0071, , 61613 #### [facility] [address] [place] [address], [facility] ABS NEUTROPHILS 5.5 10*3/uL Normal 1.6-7.6 [facility] Comment on above: Performed By: #### 0 0071, , 62960 #### [facility] [address] [facility] [place] [address], [facility] Basophils (Bld) [#/Vol] 0.0 10*3/uL Normal 0.0-0.2 [facility] Comment on above: Performed By: #### 0 0071, , 76389 #### [facility] [address] [place] [address], [facility] Basophils/100 WBC (Bld) 0.3 % Normal 0.0-1.0 [facility] Comment on above: Performed By: #### 0 0071, , 74470 #### [facility] [address] [facility] [place] [address], [facility] Eosinophils (Bld) [#/Vol] 0.0 10*3/uL Normal 0.0-0.5 [facility] Comment on above: Performed By: #### 0 0071, , 69184 #### [facility] [address] [place] [address], [facility] Eosinophils/100 WBC (Bld) 0.5 % Normal 0.0-6.0 [facility] Comment on above: Performed By: #### 0 0071, 79600, 11114 #### [facility] [address] [place] [address], [facility] Erythrocyte distribution width (RBC) [Ratio] 12.8 % Normal 11.5-15.0 [facility] Comment on above: Performed By: #### 0 0071, , 02519 #### [facility] [address] [place] [address], [facility] Hematocrit (Bld) [Volume fraction] 39.5 % Normal 39.0-50.0 [facility] Comment on above: Performed By: #### 0 007, , 59370 #### [facility] [address] [place] [address], [facility] Hemoglobin (Bld) [Mass/Vol] 12.5 g/dL Low 13.0-17.0 [facility] Comment on above: Performed By: #### 0 007, , 93823 #### [facility] [address] [place] [address], [facility] IMMATURE GRANS 0.6 % Normal 0.0-1.0 [facility] Comment on above: Performed By: #### 0 007, , 35976 #### [facility] [address] [place] [address], [facility] Lymphocytes (Bld) [#/Vol] 1.3 10*3/uL Normal 1.2-4.0 [facility] Comment on above: Performed By: #### 0 0071, , 58592 #### [facility] [address] [facility] [place] [address], [facility] Lymphocytes/100 WBC (Bld) 15.4 % Low 20.0-45.0 [facility] Comment on above: Performed By: #### 0 0071, , 40845 #### [facility] [address] [place] [address], [facility] MCH (RBC) [Entitic mass] 32.9 pg Normal 27.0-33.0 [facility] Comment on above: Performed By: #### 0 0071, 73741, 51915 #### [facility] [address] [facility]. [address] MCHC (RBC) [Mass/Vol] 31.6 g/dL Low 32.0-35.0 [facility] Comment on above: Performed By: #### 0 0071, 81434, 80266 #### [facility] [address] MCV (RBC) [Entitic vol] 103.9 fL High 82.0-98.0 [facility] Comment on above: Performed By: #### 0 0071, 28628, 67868 #### [facility] [address] Monocytes (Bld) [#/Vol] 1.7 10*3/uL High 0.1-1.0 [facility] Comment on above: Performed By: #### 0 007, 09250, 84211 #### [facility] [address] [facility]. [address] MONOS 19.8 % High 5.0-12.0 [facility] Comment on above: Performed By: #### 0 0071, 49786, 03527 #### [facility] [address] [facility]. [address] Neutrophils/100 WBC (Bld) 63.4 % Normal 40.0-72.0 [facility] Comment on above: Performed By: #### 0 0071, 04766, 83889 #### [facility] [address] [place] [address], [facility] Nucleated RBC/100 WBC (Bld) [Ratio] 0 % Normal 0-0 [facility] Comment on above: Performed By: #### 0 0071, 48185, 74582 #### [facility] [address] [facility] [place] [address], [facility] PLAT CNT 330 10*3/uL Normal 150-400 [facility] Comment on above: Performed By: #### 0 0071, 69907, 08037 #### [facility] [address] [facility] [place] [address], [facility] RBC (Bld) [#/Vol] 3.80 10*6/uL Low 4.20-5.70 [facility] Comment on above: Performed By: #### 0 0071, 73144, 85339 #### [facility] [address] [facility] [place] [address], [facility] WBC (Bld) [#/Vol] 8.68 10*3/uL Normal 4.00-10.60 [facility] Comment on above: Performed By: #### 0 0071, 74066, 86865 #### [facility] [address] [facility]. [address] COMP METABOLIC PANELon 05-28 Albumin [Mass/Vol] 4.1 g/dL Normal 3.5-5.7 [facility] Comment on above: Performed By: #### 1 0070 #### [facility] [address] [facility] [place] [address], [facility] ALKALINE PHOSPH 95 IU/L Normal 34-104 [facility] Comment on above: Performed By: #### 1 0070 #### [facility] [address] [facility] [place] [address], [facility] ALT [Catalytic activity/Vol] 14 U/L Normal 7-52 [facility] Comment on above: Performed By: #### 1 0070 #### [facility] [address] [facility] [place] [address], [facility] AST [Catalytic activity/Vol] 15 U/L Normal 13-39 [facility] Comment on above: Performed By: #### 1 0070 #### [facility] [address] [place] [address], [place] Bilirubin [Mass/Vol] 1.0 mg/dL Normal 0.3-1.0 [facility] Comment on above: Performed By: #### 1 0070 #### [facility] [address] [place] [address], [place] Calcium [Mass/Vol] 9.1 mg/dL Normal 8.6-10.3 [facility] Comment on above: Performed By: #### 1 0070 #### [facility] [address] [place] [address], [place] Chloride [Moles/Vol] 102 mmol/L Normal 98-107 [facility] Comment on above: Performed By: #### 1 0070 #### [facility] [address] [place] [address], [place] CO2 [Moles/Vol] 22 mmol/L Normal 21-31 [facility] Comment on above: Performed By: #### 1 0070 #### [facility] [address] [place] [address], [place] Creatinine [Mass/Vol] 1.51 mg/dL High 0.70-1.30 [facility] Comment on above: Performed By: #### 1 0070 #### [facility] [address] [place] [address], [place] eGFR- 57 ml/min/1.73sq m Abnormal >60 [facility] Comment on above: Performed By: #### 1 0070 #### [facility] [address] [place] [address], [place] eGFR- non- 47 ml/min/1.73sq m Abnormal >60 [facility] Comment on above: Performed By: #### 1 0070 #### [facility] [address] [place] [address], [place] Glucose [Mass/Vol] 84 mg/dL Normal 70-100 [facility] Comment on above: Performed By: #### 1 0070 #### [facility] [address] [place] [address], [facility] Potassium [Moles/Vol] 3.9 mmol/L Normal 3.5-5.1 [facility] Comment on above: Performed By: #### 1 0070 #### [facility] [address] [place] [address], [facility] Protein [Mass/Vol] 7.2 g/dL Normal 6.0-8.3 [facility] Comment on above: Performed By: #### 1 0070 #### [facility] [address] [place] [address], [facility] Sodium [Moles/Vol] 139 mmol/L Normal 136-145 [facility] Comment on above: Performed By: #### 1 0070 #### [facility] [address] [place] [address], [facility] Urea nitrogen [Mass/Vol] 40 mg/dL High 7-25 [facility] Comment on above: Performed By: #### 1 0070 #### [facility] [address] [place] [address], [place] LACTATE WITH REFLEXon 2021 Lactate [Moles/Vol] 0.6 mmol/L Normal .5-2.2 [facility] Comment on above: Performed By: #### 3 1414 #### [facility] [address] [place] [address], [place] MAGNESIUM BLOODon 05-28-2021 Magnesium [Mass/Vol] 2.0 mg/dL Normal 1.9-2.7 [facility] Comment on above: Order Comment: No: D o not add to previous draw Performed By: #### 0 0071, 34006, 81279 #### [facility] [address] [place] [address], [place] PHOSPHORUS BLOODon 01-25-202 2 Phosphate [Mass/Vol] 3.2 mg/dL Normal 2.5-5.0 [facility] Comment on above: Order Comment: No: D o not add to previous draw Performed By: #### 0 0071, 88465, 61334 #### [facility] [address] [place] [address], [facility] POC SARS COV2 ANTIGEN NEGATI VEon 05-28-2021 POC SARS COV2 ANTIGEN NEG Negative Normal NEGATIVE [facility] Comment on above: Result Comment: Nega [...] antigen from SARS-CoV-2 in direct nasopharyngeal swab (INTERIOR SPECIALIST) specimens from individuals who are suspected of [...] of Accreditation. Performed By: #### 0 0071, 78197, 60816 #### [facility] [address] [place] [address], [facility] GLUCOSE, BLOOD (POC)on 04-05 Glucose [Mass/Vol] 102 mg/dL Abnormal 74 - 99 mg/dL [facility] Comment on above: Location:[facility], [address] [place] [address] , [place], [place], [facility] The Accu-Chek Inform II glucose meter has [...] Interpretation and review of laboratory results Abnormal [facility] PET+CT Guidance for localiza tion of [...] any questions regarding this interpretation, please call [phone]. If you are unable to reach us at the number above, please feel free to contact [facility]iology at [phone]. DIVISION OF RADIOLOGY * * *Final Report* * * DATE OF EXAM: Apr 05 2021 11:05AM NRN [id number] - NM PET/CT SKULL-THIGH SUBQ / PROCEDURE REASON: Malignant neoplasm of head, face and neck (HCC) * * * * Physician Interpretation * * * * RESULT: EXAMINATION: SKULL AAVATH-IV-TUADIG FDG PET/CT SCAN HISTORY: 60 years old [...] Max SUV 1.6 Liver: Max SUV 3.7 [place] (topogram) images: No additional findings. HEAD AND [...] L1 vertebral body. DIVISION OF RADIOLOGY Provider, [facility] - 04/05/2021 * * *Final Report* * * DATE OF EXAM: Apr 05 2021 11:05AM NRN [id number] - NM PET/CT SKULL-THIGH SUBQ / PROCEDURE REASON: Malignant neoplasm of head, face and neck (HCC) * * * * Physician Interpretation * * * * RESULT: EXAMINATION: SKULL [id number] FDG PET/CT SCAN HISTORY: 60 years old [...] Max SUV 1.6 Liver: Max SUV 3.7 [place] (topogram) images: No additional findings. HEAD AND [...] any questions regarding this interpretation, please call [phone]. If you are unable to reach us at the number above, please feel free to contact [facility] at [phone]. [facility] Radiology Study observation (narrative) [facility] PET+CT Guidance for localiza tion of tumor of Skull base to mid-thigh-- W [id number]-FDG IVOrdered By: [facility] Provider on 04-05-2021 [facility] Basic Metabolic,Non-Fastingo n 03-08-2018 Creatinine mass conc 0.98 mg/dL Normal 0.70-1.[address] [facility] Comment on above: Order Comment: Is Pa tient Fasting? Yes Performed By: #### L 400.0152, L400.2200, L400.5100 ####Main Laboratory ([facility])[address] [place], [place] [phone] Nivar, MD GFR/1.73 sq M predicted among non-blacks MDRD vol rate/area (S/P/Bld) mL/min/{1.73_m2} Normal [facility] Comment on above: Order Comment: Is Pa tient Fasting? Yes Result Comment: Electrical Engineering Drafting Officer suha Kidney Disease stages by NKDFStage eGFR I >90 II 60-89 III 30-59 IV 15-29 V <15 or dialysisAGE(years) AVERAGE GFR 50-59 93 ml/min/1.73 square metersNote:This result is normalized to 1.73 square meter body surface area. Height and weight are not factored. Performed By: #### L 400.0152, L400.2200, L400.5100 ####[facility] ([facility])[address] [phone] Nivar, MD Anion gap 3 molar conc 8 mmol/L Normal 4-[address] [facility] Comment on above: Order Comment: Is Pa tient Fasting? Yes Performed By: #### L 400.0152, L400.2200, L400.5100 ####[facility] ([facility])[address] [place] [phone] Nivar, MD Calcium mass conc 8.8 mg/dL Normal 8.8-10.[address] [facility] Comment on above: Order Comment: Is Pa tient Fasting? Yes Performed By: #### L 400.0152, L400.2200, L400.5100 ####[facility] ([facility])[address], [place] [phone] Nivar, MD Chloride molar conc 103 mmol/L Normal 101-[address] [facility] Comment on above: Order Comment: Is Pa tient Fasting? Yes Performed By: #### L 400.0152, L400.2200, L400.5100 ####[facility] ([facility])[address] [phone] Nivar, MD CO2 molar conc 22 mmol/L Normal 21-[address] [facility] Comment on above: Order Comment: Is Pa tient Fasting? Yes Performed By: #### L 400.0152, L400.2200, L400.5100 ####[facility] ([facility])[address] [phone] Nivar, MD Glucose mass conc 106 mg/dL Normal 70-[address] [facility] Comment on above: Order Comment: Is Pa tient Fasting? Yes Result Comment: *Thi s reference range applies to fasting specimens only. Performed By: #### L 400.0152, L400.2200, L400.5100 ####[facility] ([facility])[address] [phone] Nivar, MD Potassium molar conc 4.4 mmol/L Normal 3.6-5.[address] [facility] Comment on above: Order Comment: Is Pa tient Fasting? Yes Performed By: #### L 400.0152, L400.2200, L400.5100 ####[facility] ([facility])[address] [place] [phone] Nivar, MD Sodium molar conc 133 mmol/L Low 135-[address] [facility] Comment on above: Order Comment: Is Pa tient Fasting? Yes Performed By: #### L 400.0152, L400.2200, L400.5100 ####[facility] ([facility])[address], [place] [phone] Nivar, MD Urea nitrogen mass conc 17 mg/dL Normal 7-[address] [facility] Comment on above: Order Comment: Is Pa tient Fasting? Yes Performed By: #### L 400.0152, L400.2200, L400.5100 ####[facility] ([facility])[address] [phone] Nivar, MD CBC with Differentialon 11-0 Abs Baso Count 0 /cmm Normal 0-[address] [facility] Comment on above: Performed By: #### L 400.0152, L400.2200, L400.5100 ####[facility] ([facility])[address] [phone] Nivar, MD Abs Eos Count 200 /cmm Normal 0-[address] [facility] Comment on above: Performed By: #### L 400.0152, L400.2200, L400.5100 ####[facility] ([facility])[address], [place] [phone] Nivar, MD Abs [place] Count 1000 /cmm High 0-[address] [facility] Comment on above: Performed By: #### L 400.0152, L400.2200, L400.5100 ####[facility] ([facility])[address], [place] [phone] Nivar, MD Abs Neut Count 5000 /cmm Normal 6932-[address] [facility] Comment on above: Performed By: #### L 400.0152, L400.2200, L400.5100 ####[facility] ([facility])[address], [place] [phone] Nivar, MD Basophils Auto #/vol (Bld) 0.5 % Normal 0-[address] [facility] Comment on above: Performed By: #### L 400.0152, L400.2200, L400.5100 ####[facility] ([facility])[address] [phone] Nivar, MD EOS-Auto Diff 2.2 % Normal 0-[address] [facility] Comment on above: Performed By: #### L 400.0152, L400.2200, L400.5100 ####[facility] ([facility])[address], [place] [phone] Nivar, MD Erythrocyte distribution width Auto Ratio (RBC) 17.7 % High 12.0-16.[address] [facility] Comment on above: Performed By: #### L 400.0152, L400.2200, L400.5100 ####[facility] ([facility])[address], [place] [phone] Nivar, MD Hematocrit Auto Volume Fraction (Bld) 27.2 % Low 40.0-49.[address] [facility] Comment on above: Performed By: #### L 400.0152, L400.2200, L400.5100 ####[facility] ([facility])[address], [place] [phone] Nivar, MD Hemoglobin mass conc (Bld) 8.9 g/dL Low 13.5-16.[address] [facility] Comment on above: Performed By: #### L 400.0152, L400.2200, L400.5100 ####[facility] ([facility])[address], [place] [phone] Nivar, MD Lymphocytes Auto #/vol (Bld) 2100 /cmm Normal 4522-[address] [facility] Comment on above: Performed By: #### L 400.0152, L400.2200, L400.5100 ####[facility] ([facility])[address], [place] [phone] Nivar, MD Lymphocytes/100 WBC Auto (Bld) 25.7 % Normal 15-[address] [facility] Comment on above: Performed By: #### L 400.0152, L400.2200, L400.5100 ####[facility] ([facility])[address], [place] [phone] Nivar, MD MCH Auto Entitic mass (RBC) 30.0 pg Normal 27.5-33.[address] [facility] Comment on above: Performed By: #### L 400.0152, L400.2200, L400.5100 ####[facility] ([facility])[address], [place] [phone] Nivar, MD MCHC Auto mass conc (RBC) 32.6 g/dL Low 33.0-36.[address] [facility] Comment on above: Performed By: #### L 400.0152, L400.2200, L400.5100 ####[facility] ([facility])[address], [place] [phone] Nivar, MD MCV Auto Entitic volume (RBC) 92.2 CU SOPHIE Normal 80-[address] [facility] Comment on above: Performed By: #### L 400.0152, L400.2200, L400.5100 ####[facility] ([facility])[address], [place] [phone] Nivar, MD [place]- Auto Diff 11.6 % High 2-[address] [facility] Comment on above: Performed By: #### L 400.0152, L400.2200, L400.5100 ####[facility] ([facility])[address], [place] [phone] Nivar, MD Neut-Auto Diff 60.0 % Normal 40-[address] [facility] Comment on above: Performed By: #### L 400.0152, L400.2200, L400.5100 ####[facility] ([facility])[address], [place] [phone] Nivar, MD NRBC-Auto 0.1 /100 WBC Normal <[address] [facility] Comment on above: Performed By: #### L 400.0152, L400.2200, L400.5100 ####[facility] ([facility])[address], [place] [phone] Nivar, MD Platelets Auto #/vol (Bld) 444 th/cmm High 150-[address] [facility] Comment on above: Performed By: #### L 400.0152, L400.2200, L400.5100 ####[facility] ([facility])[address], [place] [phone] Nivar, MD RBC Auto #/vol (Bld) 2.95 mil/cmm Low 4.50-6.00 [facility] Comment on above: Performed By: #### L 400.0152, L400.2200, L400.5100 ####[facility] ([facility])[address] [place] [phone] Nivar, MD WBC Auto #/vol (Bld) 8.4 th/cmm Normal 4.4-10.[address] [facility] Comment on above: Performed By: #### L 400.0152, L400.2200, L400.5100 ####[facility] ([facility])[address], [place] [phone] Nivar, MD Magnesiumon 03-08-2018 Magnesium mass conc 1.7 mg/dL Low 1.8-2.[address] [facility] Comment on above: Order Comment: Is Pa tient Fasting? Yes Performed By: #### L 400.0152, L400.2200, L400.5100 ####[facility] ([facility])[address] [place] [phone] Nivar, MD Prealbuminon 03-08-2018 Prealbumin mass conc 19.5 mg/dL Normal 16.0-38.[address] [facility] Comment on above: Order Comment: Is Pa tient Fasting? Yes Performed By: #### L 400.0152, L400.2200, L400.5100 ####[facility] ([facility])[address] [place] [phone] Nivar, MD Triglycerideson 03-08-2018 Triglyceride mass conc 96 mg/dL Normal <[address] [facility] Comment on above: Order Comment: Is Pa tient Fasting? Yes Performed By: #### L 400.0152, L400.2200, L400.5100 ####[facility] ([facility])[address], [place] [phone] Nivar, MD Basic Metabolic,Non-Fastingo n 03-07-2018 Anion gap 3 molar conc 7 mmol/L Normal 4-[address] [facility] Comment on above: Performed By: #### L 400.0152, L400.2200, L400.5100 ####[facility] ([facility])[address] [place] [phone] Nivar, MD Calcium mass conc 8.5 mg/dL Low 8.8-10.[address] [facility] Comment on above: Performed By: #### L 400.0152, L400.2200, L400.5100 ####[facility] ([facility])[address] [place] [phone] Nivar, MD Chloride molar conc 101 mmol/L Normal 101-[address] [facility] Comment on above: Performed By: #### L 400.0152, L400.2200, L400.5100 ####[facility] ([facility])[address] [place] [phone] Nivar, MD CO2 molar conc 23 mmol/L Normal 21-[address] [facility] Comment on above: Performed By: #### L 400.0152, L400.2200, L400.5100 ####[facility] ([facility])[address] [place] [phone] Nivar, MD Creatinine mass conc 0.86 mg/dL Normal 0.70-1.[address] [facility] Comment on above: Performed By: #### L 400.0152, L400.2200, L400.5100 ####[facility] ([facility])[address], [place] [phone] Nivar, MD GFR/1.73 sq M predicted among non-blacks MDRD vol rate/area (S/P/Bld) mL/min/{1.73_m2} Normal [facility] Comment on above: Result Comment: Electrical Engineering Drafting Officer usha Kidney Disease stages by NKDFStage eGFR I >90 II 60-89 III 30-59 IV 15-29 V <15 or dialysisAGE(years) AVERAGE GFR 50-59 93 ml/min/1.73 square metersNote:This result is normalized to 1.73 square meter body surface area. Height and weight are not factored. Performed By: #### L 400.0152, L400.2200, L400.5100 ####[facility] ([facility])[address] [phone] Nivar, MD Glucose mass conc 104 mg/dL Normal 70-[address] [facility] Comment on above: Result Comment: *Thi s reference range applies to fasting specimens only. Performed By: #### L 400.0152, L400.2200, L400.5100 ####[facility] ([facility])[address] [phone] Nivar, MD Potassium molar conc 4.2 mmol/L Normal 3.6-5.[address] [facility] Comment on above: Performed By: #### L 400.0152, L400.2200, L400.5100 ####[facility] ([facility])[address] [place] [phone] Nivar, MD Sodium molar conc 131 mmol/L Low 135-[address] [facility] Comment on above: Performed By: #### L 400.0152, L400.2200, L400.5100 ####[facility] ([facility])[address] [phone] Nivar, MD Urea nitrogen mass conc 16 mg/dL Normal 7-[address] [facility] Comment on above: Performed By: #### L 400.0152, L400.2200, L400.5100 ####[facility] ([facility])[address] [phone] Nivar, MD Magnesiumon 03-07-2018 Magnesium mass conc 1.7 mg/dL Low 1.8-2.[address] [facility] Comment on above: Performed By: #### L 400.0152, L400.2200, L400.5100 ####[facility] ([facility])[address], [place] [phone] Nivar, MD Basic Metabolic,Non-Fastingo n 03-06-2018 Anion gap 3 molar conc 9 mmol/L Normal 4-[address] [facility] Comment on above: Performed By: #### L 400.0202, L400.0302, L400.2200, L400.2500, L400.5100, L404.6500 ####[facility] ([facility])[address] [place] [phone] Nivar, MD Calcium mass conc 8.5 mg/dL Low 8.8-10.[address] [facility] Comment on above: Performed By: #### L 400.0202, L400.0302, L400.2200, L400.2500, L400.5100, L404.6500 ####[facility] ([facility])[address], [place] [phone] Nivar, MD Chloride molar conc 99 mmol/L Low 101-[address] [facility] Comment on above: Performed By: #### L 400.0202, L400.0302, L400.2200, L400.2500, L400.5100, L404.6500 ####[facility] ([facility])[address], [place] [phone] Nivar, MD CO2 molar conc 23 mmol/L Normal 21-[address] [facility] Comment on above: Performed By: #### L 400.0202, L400.0302, L400.2200, L400.2500, L400.5100, L404.6500 ####[facility] ([facility])[address], [place] [phone] Nivar, MD Creatinine mass conc 0.96 mg/dL Normal 0.70-1.[address] [facility] Comment on above: Performed By: #### L 400.0202, L400.0302, L400.2200, L400.2500, L400.5100, L404.6500 ####[facility] ([facility])[address], [place] [phone] Nivar, MD GFR/1.73 sq M predicted among non-blacks MDRD vol rate/area (S/P/Bld) mL/min/{1.73_m2} Normal [facility] Comment on above: Result Comment: Electrical Engineering Drafting Officer usha Kidney Disease stages by NKDFStage eGFR I >90 II 60-89 III 30-59 IV 15-29 V <15 or dialysisAGE(years) AVERAGE GFR 50-59 93 ml/min/1.73 square metersNote:This result is normalized to 1.73 square meter body surface area. Height and weight are not factored. Performed By: #### L 400.0202, L400.0302, L400.2200, L400.2500, L400.5100, L404.6500 ####[facility] ([facility])[address], [place] [phone] Nivar, MD Glucose mass conc 97 mg/dL Normal 70-[address] [facility] Comment on above: Result Comment: *Thi s reference range applies to fasting specimens only. Performed By: #### L 400.0202, L400.0302, L400.2200, L400.2500, L400.5100, L404.6500 ####[facility] ([facility])[address], [place] [phone] Nivar, MD Potassium molar conc 4.0 mmol/L Normal 3.6-5.[address] [facility] Comment on above: Performed By: #### L 400.0202, L400.0302, L400.2200, L400.2500, L400.5100, L404.6500 ####[facility] ([facility])[address], [place] [phone] Nivar, MD Sodium molar conc 131 mmol/L Low 135-[address] [facility] Comment on above: Performed By: #### L 400.0202, L400.0302, L400.2200, L400.2500, L400.5100, L404.6500 ####[facility] ([facility])[address], [place] [phone] Nivar, MD Urea nitrogen mass conc 18 mg/dL Normal 7-[address] [facility] Comment on above: Performed By: #### L 400.0202, L400.0302, L400.2200, L400.2500, L400.5100, L404.6500 ####[facility] ([facility])[address], [place] [phone] Nivar, MD Magnesiumon 03-06-2018 Magnesium mass conc 1.7 mg/dL Low 1.8-2.[address] [facility] Comment on above: Performed By: #### L 400.0202, L400.0302, L400.2200, L400.2500, L400.5100, L404.6500 ####[facility] ([facility])[address] [place] [phone] Nivar, MD Basic Metabolic,Non-Fastingo n 03-05-2018 Anion gap 3 molar conc 7 mmol/L Normal 4-[address] [facility] Comment on above: Performed By: #### L 400.0202, L400.0302, L400.2200, L400.2500, L400.5100, L404.6500 ####[facility] ([facility])[address] [place] [phone] Nivar, MD Calcium mass conc 8.9 mg/dL Normal 8.8-10.[address] [facility] Comment on above: Performed By: #### L 400.0202, L400.0302, L400.2200, L400.2500, L400.5100, L404.6500 ####[facility] ([facility])[address] [place] [phone] Nivar, MD Chloride molar conc 101 mmol/L Normal 101-[address] [facility] Comment on above: Performed By: #### L 400.0202, L400.0302, L400.2200, L400.2500, L400.5100, L404.6500 ####[facility] ([facility])[address] [place] [phone] Nivar, MD CO2 molar conc 24 mmol/L Normal 21-[address] [facility] Comment on above: Performed By: #### L 400.0202, L400.0302, L400.2200, L400.2500, L400.5100, L404.6500 ####[facility] ([facility])[address] [place] [phone] Nivar, MD Creatinine mass conc 1.00 mg/dL Normal 0.70-1.[address] [facility] Comment on above: Performed By: #### L 400.0202, L400.0302, L400.2200, L400.2500, L400.5100, L404.6500 ####[facility] ([facility])[address] [place], [place] [phone] Nivar, MD GFR/1.73 sq M predicted among non-blacks MDRD vol rate/area (S/P/Bld) mL/min/{1.73_m2} Normal [facility] Comment on above: Result Comment: Sarah usha Kidney Disease stages by NKDFStage eGFR I >90 II 60-89 III 30-59 IV 15-29 V <15 or dialysisAGE(years) AVERAGE GFR 50-59 93 ml/min/1.73 square metersNote:This result is normalized to 1.73 square meter body surface area. Height and weight are not factored. Performed By: #### L 400.0202, L400.0302, L400.2200, L400.2500, L400.5100, L404.6500 ####[facility] ([facility])[address] [place] [phone] Nivar, MD Glucose mass conc 94 mg/dL Normal 70-[address] [facility] Comment on above: Result Comment: *Thi s reference range applies to fasting specimens only. Performed By: #### L 400.0202, L400.0302, L400.2200, L400.2500, L400.5100, L404.6500 ####[facility] ([facility])[address], [place] [phone] Nivar, MD Potassium molar conc 4.2 mmol/L Normal 3.6-5.[address] [facility] Comment on above: Performed By: #### L 400.0202, L400.0302, L400.2200, L400.2500, L400.5100, L404.6500 ####[facility] ([facility])[address] [place] [phone] Nivar, MD Sodium molar conc 132 mmol/L Low 135-[address] [facility] Comment on above: Performed By: #### L 400.0202, L400.0302, L400.2200, L400.2500, L400.5100, L404.6500 ####[facility] ([facility])[address], [place] [phone] Nivar, MD Urea nitrogen mass conc 18 mg/dL Normal 7-[address] [facility] Comment on above: Performed By: #### L 400.0202, L400.0302, L400.2200, L400.2500, L400.5100, L404.6500 ####[facility] ([facility])[address] [place] [phone] Nivar, MD Magnesiumon 03-05-2018 Magnesium mass conc 1.7 mg/dL Low 1.8-2.[address] [facility] Comment on above: Performed By: #### L 400.0202, L400.0302, L400.2200, L400.2500, L400.5100, L404.6500 ####[facility] ([facility])[address], [place] [phone] Nivar, MD Basic Metabolic,Non-Fastingo n 03-04-2018 Anion gap 3 molar conc 8 mmol/L Normal 4-[address] [facility] Comment on above: Performed By: #### L 400.0202, L400.0302, L400.2200, L400.2500, L400.5100, L404.6500 ####[facility] ([facility])[address] [place], [place] [phone] Nivar, MD Calcium mass conc 8.6 mg/dL Low 8.8-10.[address] [facility] Comment on above: Performed By: #### L 400.0202, L400.0302, L400.2200, L400.2500, L400.5100, L404.6500 ####[facility] ([facility])[address] [place], [place] [phone] Nivar, MD Chloride molar conc 102 mmol/L Normal 101-[address] [facility] Comment on above: Performed By: #### L 400.0202, L400.0302, L400.2200, L400.2500, L400.5100, L404.6500 ####[facility] ([facility])[address] [place], [place] [phone] Nivar, MD CO2 molar conc 21 mmol/L Normal 21-[address] [facility] Comment on above: Performed By: #### L 400.0202, L400.0302, L400.2200, L400.2500, L400.5100, L404.6500 ####[facility] ([facility])[address], [place] [phone] Nivar, MD Creatinine mass conc 0.98 mg/dL Normal 0.70-1.[address] [facility] Comment on above: Performed By: #### L 400.0202, L400.0302, L400.2200, L400.2500, L400.5100, L404.6500 ####[facility] ([facility])[address], [place] [phone] Nivar, MD GFR/1.73 sq M predicted among non-blacks MDRD vol rate/area (S/P/Bld) mL/min/{1.73_m2} Normal [facility] Comment on above: Result Comment: Electrical Engineering Drafting Officer usha Kidney Disease stages by NKDFStage eGFR I >90 II 60-89 III 30-59 IV 15-29 V <15 or dialysisAGE(years) AVERAGE GFR 50-59 93 ml/min/1.73 square metersNote:This result is normalized to 1.73 square meter body surface area. Height and weight are not factored. Performed By: #### L 400.0202, L400.0302, L400.2200, L400.2500, L400.5100, L404.6500 ####[facility] ([facility])[address] [phone] Nivar, MD Glucose mass conc 103 mg/dL Normal 70-[address] [facility] Comment on above: Result Comment: *Thi s reference range applies to fasting specimens only. Performed By: #### L 400.0202, L400.0302, L400.2200, L400.2500, L400.5100, L404.6500 ####[facility] ([facility])[address] [place] [phone] Nivar, MD Potassium molar conc 4.2 mmol/L Normal 3.6-5.[address] [facility] Comment on above: Performed By: #### L 400.0202, L400.0302, L400.2200, L400.2500, L400.5100, L404.6500 ####[facility] ([facility])[address] [place] [phone] Nivar, MD Sodium molar conc 131 mmol/L Low 135-[address] [facility] Comment on above: Performed By: #### L 400.0202, L400.0302, L400.2200, L400.2500, L400.5100, L404.6500 ####[facility] ([facility])[address], [place] [phone] Nivar, MD Urea nitrogen mass conc 16 mg/dL Normal 7-[address] [facility] Comment on above: Performed By: #### L 400.0202, L400.0302, L400.2200, L400.2500, L400.5100, L404.6500 ####[facility] ([facility])[address] [place] [phone] Nivar, MD Magnesiumon 03-04-2018 Magnesium mass conc 1.8 mg/dL Normal 1.8-2.[address] [facility] Comment on above: Performed By: #### L 400.0202, L400.0302, L400.2200, L400.2500, L400.5100, L404.6500 ####[facility] ([facility])[address] [place] [phone] Nivar, MD Phosphoruson 03-04-2018 Phosphate mass conc 4.2 mg/dL Normal 2.4-4.[address] [facility] Comment on above: Performed By: #### L 400.0202, L400.0302, L400.2200, L400.2500, L400.5100, L404.6500 ####[facility] ([facility])[address] [place] [phone] Nivar, MD Basic Metabolic,Non-Fastingo n 03-03-2018 Anion gap 3 molar conc 7 mmol/L Normal 4-[address] [facility] Comment on above: Performed By: #### L 400.0202, L400.0302, L400.2200, L400.2500, L400.5100, L404.6500 ####[facility] ([facility])[address], [place] [phone] Nivar, MD Calcium mass conc 8.6 mg/dL Low 8.8-10.[address] [facility] Comment on above: Performed By: #### L 400.0202, L400.0302, L400.2200, L400.2500, L400.5100, L404.6500 ####[facility] ([facility])[address], [place] [phone] Nivar, MD Chloride molar conc 103 mmol/L Normal 101-[address] [facility] Comment on above: Performed By: #### L 400.0202, L400.0302, L400.2200, L400.2500, L400.5100, L404.6500 ####[facility] ([facility])[address] [phone] Nivar, MD CO2 molar conc 23 mmol/L Normal 21-[address] [facility] Comment on above: Performed By: #### L 400.0202, L400.0302, L400.2200, L400.2500, L400.5100, L404.6500 ####[facility] ([facility])[address], [place] [phone] Nivar, MD Creatinine mass conc 1.00 mg/dL Normal 0.70-1.[address] [facility] Comment on above: Performed By: #### L 400.0202, L400.0302, L400.2200, L400.2500, L400.5100, L404.6500 ####[facility] ([facility])[address], [place] [phone] Nivar, MD GFR/1.73 sq M predicted among non-blacks MDRD vol rate/area (S/P/Bld) mL/min/{1.73_m2} Normal [facility] Comment on above: Result Comment: Electrical Engineering Drafting Officer usha Kidney Disease stages by NKDFStage eGFR I >90 II 60-89 III 30-59 IV 15-29 V <15 or dialysisAGE(years) AVERAGE GFR 50-59 93 ml/min/1.73 square metersNote:This result is normalized to 1.73 square meter body surface area. Height and weight are not factored. Performed By: #### L 400.0202, L400.0302, L400.2200, L400.2500, L400.5100, L404.6500 ####[facility] ([facility])[address] [phone] Nivar, MD Glucose mass conc 104 mg/dL Normal 70-[address] [facility] Comment on above: Result Comment: *Thi s reference range applies to fasting specimens only. Performed By: #### L 400.0202, L400.0302, L400.2200, L400.2500, L400.5100, L404.6500 ####[facility] ([facility])[address] [place] [phone] Nivar, MD Potassium molar conc 4.1 mmol/L Normal 3.6-5.[address] [facility] Comment on above: Performed By: #### L 400.0202, L400.0302, L400.2200, L400.2500, L400.5100, L404.6500 ####[facility] ([facility])[address], [place] [phone] Nivar, MD Sodium molar conc 133 mmol/L Low 135-[address] [facility] Comment on above: Performed By: #### L 400.0202, L400.0302, L400.2200, L400.2500, L400.5100, L404.6500 ####[facility] ([facility])[address], [place] [phone] Nivar, MD Urea nitrogen mass conc 20 mg/dL Normal 7-[address] [facility] Comment on above: Performed By: #### L 400.0202, L400.0302, L400.2200, L400.2500, L400.5100, L404.6500 ####[facility] ([facility])[address], [place] [phone] Nivar, MD Magnesiumon 03-03-2018 Magnesium mass conc 1.8 mg/dL Normal 1.8-2.[address] [facility] Comment on above: Performed By: #### L 400.0202, L400.0302, L400.2200, L400.2500, L400.5100, L404.6500 ####[facility] ([facility])[address] [place] [phone] Nivar, MD Basic Metabolic,Non-Fastingo n 03-02-2018 Anion gap 3 molar conc 7 mmol/L Normal 4-[address] [facility] Comment on above: Performed By: #### L 400.0202, L400.0302, L400.2200, L400.2500, L400.5100, L404.6500 ####[facility] ([facility])[address] [place] [phone] Nivar, MD Calcium mass conc 8.4 mg/dL Low 8.8-10.[address] [facility] Comment on above: Performed By: #### L 400.0202, L400.0302, L400.2200, L400.2500, L400.5100, L404.6500 ####[facility] ([facility])[address], [place] [phone] Nivar, MD Chloride molar conc 104 mmol/L Normal 101-[address] [facility] Comment on above: Performed By: #### L 400.0202, L400.0302, L400.2200, L400.2500, L400.5100, L404.6500 ####[facility] ([facility])[address], [place] [phone] Nivar, MD CO2 molar conc 21 mmol/L Normal 21-[address] [facility] Comment on above: Performed By: #### L 400.0202, L400.0302, L400.2200, L400.2500, L400.5100, L404.6500 ####[facility] ([facility])[address], [place] [phone] Nivar, MD Creatinine mass conc 1.07 mg/dL Normal 0.70-1.[address] [facility] Comment on above: Performed By: #### L 400.0202, L400.0302, L400.2200, L400.2500, L400.5100, L404.6500 ####[facility] ([facility])[address], [place] [phone] Nivar, MD GFR/1.73 sq M predicted among non-blacks MDRD vol rate/area (S/P/Bld) mL/min/{1.73_m2} Normal [facility] Comment on above: Result Comment: Sarah usha Kidney Disease stages by NKDFStage eGFR I >90 II 60-89 III 30-59 IV 15-29 V <15 or dialysisAGE(years) AVERAGE GFR 50-59 93 ml/min/1.73 square metersNote:This result is normalized to 1.73 square meter body surface area. Height and weight are not factored. Performed By: #### L 400.0202, L400.0302, L400.2200, L400.2500, L400.5100, L404.6500 ####Main Laboratory ([facility])[address], [place] [phone] Nivar, MD Glucose mass conc 100 mg/dL Normal 70-[address] [facility] Comment on above: Result Comment: *Thi s reference range applies to fasting specimens only. Performed By: #### L 400.0202, L400.0302, L400.2200, L400.2500, L400.5100, L404.6500 ####Main Laboratory ([facility])[address], [place] [phone] Nivar, MD Potassium molar conc 3.9 mmol/L Normal 3.6-5.[address] [facility] Comment on above: Performed By: #### L 400.0202, L400.0302, L400.2200, L400.2500, L400.5100, L404.6500 ####Main Laboratory ([facility])[address], [place] [phone] Nivar, MD Sodium molar conc 132 mmol/L Low 135-[address] [facility] Comment on above: Performed By: #### L 400.0202, L400.0302, L400.2200, L400.2500, L400.5100, L404.6500 ####[facility] ([facility])[address], [place] [phone] Nivar, MD Urea nitrogen mass conc 20 mg/dL Normal 7-[address] [facility] Comment on above: Performed By: #### L 400.0202, L400.0302, L400.2200, L400.2500, L400.5100, L404.6500 ####[facility] ([facility])[address] [place] [phone] Nivar, MD Magnesiumon 03-02-2018 Magnesium mass conc 1.7 mg/dL Low 1.8-2.[address] [facility] Comment on above: Performed By: #### L 400.0202, L400.0302, L400.2200, L400.2500, L400.5100, L404.6500 ####[facility] ([facility])[address], [place] [phone] Nivar, MD Basic Metabolic,Non-Fastingo n 03-01-2018 Anion gap 3 molar conc 7 mmol/L Normal 4-[address] [facility] Comment on above: Performed By: #### L 400.0202, L400.0302, L400.2200, L400.2500, L400.5100, L404.6500 ####[facility] ([facility])[address], [place] [phone] Nivar, MD Calcium mass conc 8.4 mg/dL Low 8.8-10.[address] [facility] Comment on above: Performed By: #### L 400.0202, L400.0302, L400.2200, L400.2500, L400.5100, L404.6500 ####[facility] ([facility])[address] [place] [phone] Nivar, MD Chloride molar conc 104 mmol/L Normal 101-[address] [facility] Comment on above: Performed By: #### L 400.0202, L400.0302, L400.2200, L400.2500, L400.5100, L404.6500 ####[facility] ([facility])[address], [place] [phone] Nivar, MD CO2 molar conc 21 mmol/L Normal 21-[address] [facility] Comment on above: Performed By: #### L 400.0202, L400.0302, L400.2200, L400.2500, L400.5100, L404.6500 ####[facility] ([facility])[address], [place] [phone] Nivar, MD Creatinine mass conc 1.03 mg/dL Normal 0.70-1.[address] [facility] Comment on above: Performed By: #### L 400.0202, L400.0302, L400.2200, L400.2500, L400.5100, L404.6500 ####[facility] ([facility])[address] [phone] Nivar, MD GFR/1.73 sq M predicted among non-blacks MDRD vol rate/area (S/P/Bld) mL/min/{1.73_m2} Normal [facility] Comment on above: Result Comment: Electrical Engineering Drafting Officer usha Kidney Disease stages by NKDFStage eGFR I >90 II 60-89 III 30-59 IV 15-29 V <15 or dialysisAGE(years) AVERAGE GFR 50-59 93 ml/min/1.73 square metersNote:This result is normalized to 1.73 square meter body surface area. Height and weight are not factored. Performed By: #### L 400.0202, L400.0302, L400.2200, L400.2500, L400.5100, L404.6500 ####[facility] ([facility])[address], [place] [phone] Nivar, MD Glucose mass conc 85 mg/dL Normal 70-[address] [facility] Comment on above: Result Comment: *Thi s reference range applies to fasting specimens only. Performed By: #### L 400.0202, L400.0302, L400.2200, L400.2500, L400.5100, L404.6500 ####[facility] ([facility])[address], [place] [phone] Nivar, MD Potassium molar conc 4.3 mmol/L Normal 3.6-5.[address] [facility] Comment on above: Performed By: #### L 400.0202, L400.0302, L400.2200, L400.2500, L400.5100, L404.6500 ####[facility] ([facility])[address] [place] [phone] Nivar, MD Sodium molar conc 132 mmol/L Low 135-[address] [facility] Comment on above: Performed By: #### L 400.0202, L400.0302, L400.2200, L400.2500, L400.5100, L404.6500 ####[facility] ([facility])[address], [place] [phone] Nivar, MD Urea nitrogen mass conc 22 mg/dL High 7-[address] [facility] Comment on above: Performed By: #### L 400.0202, L400.0302, L400.2200, L400.2500, L400.5100, L404.6500 ####[facility] ([facility])[address] [place] [phone] Nivar, MD CBC with Differentialon 02-02 Abs Baso Count 0 /cmm Normal 0-[address] [facility] Comment on above: Performed By: #### L 400.0202, L400.0302, L400.2200, L400.2500, L400.5100, L404.6500 ####[facility] ([facility])[address], [place] [phone] Nivar, MD Abs Eos Count 300 /cmm Normal 0-[address] [facility] Comment on above: Performed By: #### L 400.0202, L400.0302, L400.2200, L400.2500, L400.5100, L404.6500 ####[facility] ([facility])[address] [place] [phone] Nivar, MD Abs [place] Count 800 /cmm Normal 0-[address] [facility] Comment on above: Performed By: #### L 400.0202, L400.0302, L400.2200, L400.2500, L400.5100, L404.6500 ####[facility] ([facility])[address] [place] [phone] Nivar, MD Abs Neut Count 6400 /cmm Normal 6179-[address] [facility] Comment on above: Performed By: #### L 400.0202, L400.0302, L400.2200, L400.2500, L400.5100, L404.6500 ####[facility] ([facility])[address] [place] [phone] Nivar, MD Anisocytosis Auto Ql (Bld) 1+ Normal [facility] Comment on above: Performed By: #### L 400.0202, L400.0302, L400.2200, L400.2500, L400.5100, L404.6500 ####[facility] ([facility])[address] [place] [phone] Nivar, MD Basophils Auto #/vol (Bld) 0.4 % Normal 0-[address] [facility] Comment on above: Performed By: #### L 400.0202, L400.0302, L400.2200, L400.2500, L400.5100, L404.6500 ####[facility] ([facility])[address] [place] [phone] Nivar, MD EOS-Auto Diff 2.6 % Normal 0-[address] [facility] Comment on above: Performed By: #### L 400.0202, L400.0302, L400.2200, L400.2500, L400.5100, L404.6500 ####[facility] ([facility])[address] [place] [phone] Nivar, MD Erythrocyte distribution width Auto Ratio (RBC) 18.5 % High 12.0-16.[address] [facility] Comment on above: Performed By: #### L 400.0202, L400.0302, L400.2200, L400.2500, L400.5100, L404.6500 ####[facility] ([facility])[address], [place] [phone] Nivar, MD Hematocrit Auto Volume Fraction (Bld) 26.6 % Low 40.0-49.[address] [facility] Comment on above: Performed By: #### L 400.0202, L400.0302, L400.2200, L400.2500, L400.5100, L404.6500 ####[facility] ([facility])[address] [place] [phone] Nivar, MD Hemoglobin mass conc (Bld) 8.4 g/dL Low 13.5-16.[address] [facility] Comment on above: Performed By: #### L 400.0202, L400.0302, L400.2200, L400.2500, L400.5100, L404.6500 ####[facility] ([facility])[address] [place] [phone] Nivar, MD Lymphocytes Auto #/vol (Bld) 2700 /cmm Normal 5237-[address] [facility] Comment on above: Performed By: #### L 400.0202, L400.0302, L400.2200, L400.2500, L400.5100, L404.6500 ####[facility] ([facility])[address] [place] [phone] Nivar, MD Lymphocytes/100 WBC Auto (Bld) 26.1 % Normal 15-[address] [facility] Comment on above: Performed By: #### L 400.0202, L400.0302, L400.2200, L400.2500, L400.5100, L404.6500 ####[facility] ([facility])[address] [place] [phone] Nivar, MD MCH Auto Entitic mass (RBC) 29.6 pg Normal 27.5-33.[address] [facility] Comment on above: Performed By: #### L 400.0202, L400.0302, L400.2200, L400.2500, L400.5100, L404.6500 ####[facility] ([facility])[address] [place] [phone] Nivar, MD MCHC Auto mass conc (RBC) 31.7 g/dL Low 33.0-36.[address] [facility] Comment on above: Performed By: #### L 400.0202, L400.0302, L400.2200, L400.2500, L400.5100, L404.6500 ####[facility] ([facility])[address] [place] [phone] Nivar, MD MCV Auto Entitic volume (RBC) 93.3 CU SOPHIE Normal 80-[address] [facility] Comment on above: Performed By: #### L 400.0202, L400.0302, L400.2200, L400.2500, L400.5100, L404.6500 ####[facility] ([facility])[address], [place] [phone] Nivar, MD [place]- Auto Diff 7.7 % Normal 2-[address] [facility] Comment on above: Performed By: #### L 400.0202, L400.0302, L400.2200, L400.2500, L400.5100, L404.6500 ####[facility] ([facility])[address], [place] [phone] Nivar, MD Neut-Auto Diff 63.2 % Normal 40-[address] [facility] Comment on above: Performed By: #### L 400.0202, L400.0302, L400.2200, L400.2500, L400.5100, L404.6500 ####[facility] ([facility])[address] [place] [phone] Nivar, MD NRBC-Auto 0.1 /100 WBC Normal <[address] [facility] Comment on above: Performed By: #### L 400.0202, L400.0302, L400.2200, L400.2500, L400.5100, L404.6500 ####[facility] ([facility])[address], [place] [phone] Nivar, MD Platelets Auto #/vol (Bld) 295 th/cmm Normal 150-[address] [facility] Comment on above: Performed By: #### L 400.0202, L400.0302, L400.2200, L400.2500, L400.5100, L404.6500 ####[facility] ([facility])[address] [place] [phone] Nivar, MD RBC Auto #/vol (Bld) 2.85 mil/cmm Low 4.50-6.00 [facility] Comment on above: Performed By: #### L 400.0202, L400.0302, L400.2200, L400.2500, L400.5100, L404.6500 ####[facility] ([facility])[address], [place] [phone] Nivar, MD WBC Auto #/vol (Bld) 10.2 th/cmm Normal 4.4-10.5 [facility] Comment on above: Performed By: #### L 400.0202, L400.0302, L400.2200, L400.2500, L400.5100, L404.6500 ####[facility] ([facility])[address], [place] [phone] Nivar, MD FL MODIFIED BARIUM SWALLOW W [...] by:NADEGE Dixonigned by:Fidel Rodriguez MD03/01/18inal result Normal [facility] Hepatic Function Panel (Live r)on 03-01-2018 Albumin mass conc 3.1 g/dL Low 3.5-5.[address] [facility] Comment on above: Performed By: #### L 400.0202, L400.0302, L400.2200, L400.2500, L400.5100, L404.6500 ####[facility] ([facility])[address], [place] [phone] Nivar, MD Alk Phos 97 IU/L Normal 41-[address] [facility] Comment on above: Performed By: #### L 400.0202, L400.0302, L400.2200, L400.2500, L400.5100, L404.6500 ####[facility] ([facility])[address], [place] [phone] Nivar, MD ALT/SGPT 19 IU/L Normal 10-[address] [facility] Comment on above: Performed By: #### L 400.0202, L400.0302, L400.2200, L400.2500, L400.5100, L404.6500 ####[facility] ([facility])[address], [place] [phone] Nivar, MD AST/SGOT 20 IU/L Normal 15-[address] [facility] Comment on above: Performed By: #### L 400.0202, L400.0302, L400.2200, L400.2500, L400.5100, L404.6500 ####[facility] ([facility])[address], [place] [phone] Nivar, MD Bili,Direct < 0.1 Low 0.1-0.[address] [facility] Comment on above: Performed By: #### L 400.0202, L400.0302, L400.2200, L400.2500, L400.5100, L404.6500 ####[facility] ([facility])[address] [place], [place] [phone] Nivar, MD Bili,Total < 0.1 Low 0.2-1.[address] [facility] Comment on above: Result Comment: Delt a: 0.4 on 02/22/18-401 Performed By: #### L 400.0202, L400.0302, L400.2200, L400.2500, L400.5100, L404.6500 ####[facility] ([facility])[address], [place] [phone] Nivar, MD Protein mass conc 6.9 g/dL Normal 6.2-8.[address] [facility] Comment on above: Performed By: #### L 400.0202, L400.0302, L400.2200, L400.2500, L400.5100, L404.6500 ####[facility] ([facility])[address] [place] [phone] Nivar, MD Magnesiumon 03-01-2018 Magnesium mass conc 1.8 mg/dL Normal 1.8-2.[address] [facility] Comment on above: Performed By: #### L 400.0202, L400.0302, L400.2200, L400.2500, L400.5100, L404.6500 ####[facility] ([facility])[address] [place] [phone] Nivar, MD Basic Metabolic Panel,Fastin sabas 02-28-2018 Anion gap 3 molar conc 5 mmol/L Normal 4-[address] [facility] Comment on above: Performed By: #### L 400.0202, L400.0302, L400.2200, L400.2500, L400.5100, L404.6500 ####[facility] ([facility])[address], [place] [phone] Nivar, MD Calcium mass conc 8.4 mg/dL Low 8.8-10.[address] [facility] Comment on above: Performed By: #### L 400.0202, L400.0302, L400.2200, L400.2500, L400.5100, L404.6500 ####[facility] ([facility])[address], [place] [phone] Nivar, MD Chloride molar conc 109 mmol/L Normal 101-[address] [facility] Comment on above: Performed By: #### L 400.0202, L400.0302, L400.2200, L400.2500, L400.5100, L404.6500 ####[facility] ([facility])[address], [place] [phone] Nivar, MD CO2 molar conc 22 mmol/L Normal 21-[address] [facility] Comment on above: Performed By: #### L 400.0202, L400.0302, L400.2200, L400.2500, L400.5100, L404.6500 ####[facility] ([facility])[address] [place] [phone] Nivar, MD Creatinine mass conc 1.03 mg/dL Normal 0.70-1.[address] [facility] Comment on above: Performed By: #### L 400.0202, L400.0302, L400.2200, L400.2500, L400.5100, L404.6500 ####[facility] ([facility])[address] [place], [place] [phone] Nivar, MD GFR/1.73 sq M predicted among non-blacks MDRD vol rate/area (S/P/Bld) mL/min/{1.73_m2} Normal [facility] Comment on above: Result Comment: Electrical Engineering Drafting Officer usha Kidney Disease stages by NKDFStage eGFR I >90 II 60-89 III 30-59 IV 15-29 V <15 or dialysisAGE(years) AVERAGE GFR 50-59 93 ml/min/1.73 square metersNote:This result is normalized to 1.73 square meter body surface area. Height and weight are not factored. Performed By: #### L 400.0202, L400.0302, L400.2200, L400.2500, L400.5100, L404.6500 ####[facility] ([facility])[address], [place] [phone] Nivar, MD Glucose mass conc 94 mg/dL Normal 70-[address] [facility] Comment on above: Performed By: #### L 400.0202, L400.0302, L400.2200, L400.2500, L400.5100, L404.6500 ####[facility] ([facility])[address], [place] [phone] Nivar, MD Potassium molar conc 3.7 mmol/L Normal 3.6-5.[address] [facility] Comment on above: Performed By: #### L 400.0202, L400.0302, L400.2200, L400.2500, L400.5100, L404.6500 ####[facility] ([facility])[address] [place] [phone] Nivar, MD Sodium molar conc 136 mmol/L Normal 135-[address] [facility] Comment on above: Performed By: #### L 400.0202, L400.0302, L400.2200, L400.2500, L400.5100, L404.6500 ####[facility] ([facility])[address], [place] [phone] Nivar, MD Urea nitrogen mass conc 22 mg/dL High 7-[address] [facility] Comment on above: Performed By: #### L 400.0202, L400.0302, L400.2200, L400.2500, L400.5100, L404.6500 ####[facility] ([facility])[address] [place] [phone] Nivar, MD CBC with Differentialon 02-02 Abs Baso Count 0 /cmm Normal 0-[address] [facility] Comment on above: Performed By: #### L 400.0202, L400.0302, L400.2200, L400.2500, L400.5100, L404.6500 ####[facility] ([facility])[address], [place] [phone] Nivar, MD Abs Eos Count 400 /cmm Normal 0-[address] [facility] Comment on above: Performed By: #### L 400.0202, L400.0302, L400.2200, L400.2500, L400.5100, L404.6500 ####[facility] ([facility])[address], [place] [phone] Nivar, MD Abs [place] Count 1000 /cmm High 0-[address] [facility] Comment on above: Performed By: #### L 400.0202, L400.0302, L400.2200, L400.2500, L400.5100, L404.6500 ####[facility] ([facility])[address], [place] [phone] Nivar, MD Abs Neut Count 8300 /cmm High 4136-[address] [facility] Comment on above: Performed By: #### L 400.0202, L400.0302, L400.2200, L400.2500, L400.5100, L404.6500 ####[facility] ([facility])[address], [place] [phone] Nivar, MD Anisocytosis Auto Ql (Bld) 1+ Normal [facility] Comment on above: Performed By: #### L 400.0202, L400.0302, L400.2200, L400.2500, L400.5100, L404.6500 ####[facility] ([facility])[address] [place] [phone] Nivar, MD Basophils Auto #/vol (Bld) 0.3 % Normal 0-[address] [facility] Comment on above: Performed By: #### L 400.0202, L400.0302, L400.2200, L400.2500, L400.5100, L404.6500 ####[facility] ([facility])[address], [place] [phone] Nivar, MD EOS-Auto Diff 2.9 % Normal 0-[address] [facility] Comment on above: Performed By: #### L 400.0202, L400.0302, L400.2200, L400.2500, L400.5100, L404.6500 ####[facility] ([facility])[address], [place] [phone] Nivar, MD Erythrocyte distribution width Auto Ratio (RBC) 18.2 % High 12.0-16.[address] [facility] Comment on above: Performed By: #### L 400.0202, L400.0302, L400.2200, L400.2500, L400.5100, L404.6500 ####[facility] ([facility])[address], [place] [phone] Nivar, MD Hematocrit Auto Volume Fraction (Bld) 24.4 % Low 40.0-49.[address] [facility] Comment on above: Performed By: #### L 400.0202, L400.0302, L400.2200, L400.2500, L400.5100, L404.6500 ####[facility] ([facility])[address], [place] [phone] Nivar, MD Hemoglobin mass conc (Bld) 7.6 g/dL Low 13.5-16.[address] [facility] Comment on above: Performed By: #### L 400.0202, L400.0302, L400.2200, L400.2500, L400.5100, L404.6500 ####[facility] ([facility])[address] [place], [place] [phone] Nivar, MD Lymphocytes Auto #/vol (Bld) 3200 /cmm Normal 8985-[address] [facility] Comment on above: Performed By: #### L 400.0202, L400.0302, L400.2200, L400.2500, L400.5100, L404.6500 ####[facility] ([facility])[address], [place] [phone] Nivar, MD Lymphocytes/100 WBC Auto (Bld) 24.8 % Normal 15-[address] [facility] Comment on above: Performed By: #### L 400.0202, L400.0302, L400.2200, L400.2500, L400.5100, L404.6500 ####[facility] ([facility])[address] [place] [phone] Nivar, MD MCH Auto Entitic mass (RBC) 29.2 pg Normal 27.5-33.[address] [facility] Comment on above: Performed By: #### L 400.0202, L400.0302, L400.2200, L400.2500, L400.5100, L404.6500 ####[facility] ([facility])[address] [place] [phone] Nivar, MD MCHC Auto mass conc (RBC) 31.3 g/dL Low 33.0-36.[address] [facility] Comment on above: Performed By: #### L 400.0202, L400.0302, L400.2200, L400.2500, L400.5100, L404.6500 ####[facility] ([facility])[address] [place] [phone] Nivar, MD MCV Auto Entitic volume (RBC) 93.4 CU SOPHIE Normal 80-[address] [facility] Comment on above: Performed By: #### L 400.0202, L400.0302, L400.2200, L400.2500, L400.5100, L404.6500 ####[facility] ([facility])[address] [place] [phone] Nivar, MD [place]- Auto Diff 7.7 % Normal 2-[address] [facility] Comment on above: Performed By: #### L 400.0202, L400.0302, L400.2200, L400.2500, L400.5100, L404.6500 ####[facility] ([facility])[address], [place] [phone] Nivar, MD Neut-Auto Diff 64.3 % Normal 40-[address] [facility] Comment on above: Performed By: #### L 400.0202, L400.0302, L400.2200, L400.2500, L400.5100, L404.6500 ####[facility] ([facility])[address] [place] [phone] Nivar, MD NRBC-Auto 0.1 /100 WBC Normal <[address] [facility] Comment on above: Performed By: #### L 400.0202, L400.0302, L400.2200, L400.2500, L400.5100, L404.6500 ####[facility] ([facility])[address], [place] [phone] Nivar, MD Platelets Auto #/vol (Bld) 295 th/cmm Normal 150-[address] [facility] Comment on above: Performed By: #### L 400.0202, L400.0302, L400.2200, L400.2500, L400.5100, L404.6500 ####[facility] ([facility])[address] [place] [phone] Nivar, MD RBC Auto #/vol (Bld) 2.61 mil/cmm Low 4.50-6.00 [facility] Comment on above: Performed By: #### L 400.0202, L400.0302, L400.2200, L400.2500, L400.5100, L404.6500 ####[facility] ([facility])[address], [place] [phone] Nivar, MD WBC Auto #/vol (Bld) 12.9 th/cmm High 4.4-10.5 [facility] Comment on above: Performed By: #### L 400.0202, L400.0302, L400.2200, L400.2500, L400.5100, L404.6500 ####[facility] ([facility])[address] [place] [phone] Nivar, MD Magnesiumon 02-28-2018 Magnesium mass conc 1.8 mg/dL Normal 1.8-2.[address] [facility] Comment on above: Performed By: #### L 400.0202, L400.0302, L400.2200, L400.2500, L400.5100, L404.6500 ####Main Laboratory ([facility])[address], [place] [phone] Nivar, MD Phosphoruson 02-28-2018 Phosphate mass conc 3.5 mg/dL Normal 2.4-4.[address] [facility] Comment on above: Performed By: #### L 400.0202, L400.0302, L400.2200, L400.2500, L400.5100, L404.6500 ####Main Laboratory ([facility])[address], [place] [phone] Nivar, MD Basic Metabolic,Non-Fastingo n 02-27-2018 Anion gap 3 molar conc 7 mmol/L Normal 4-[address] [facility] Comment on above: Performed By: #### L 400.0202, L400.0302, L400.2200, L400.2500, L400.5100, L404.6500 ####Main Laboratory ([facility])[address], [place] [phone] Nivar, MD Calcium mass conc 8.3 mg/dL Low 8.8-10.[address] [facility] Comment on above: Performed By: #### L 400.0202, L400.0302, L400.2200, L400.2500, L400.5100, L404.6500 ####Main Laboratory ([facility])[address], [place] [phone] Nivar, MD Chloride molar conc 110 mmol/L Normal 101-[address] [facility] Comment on above: Performed By: #### L 400.0202, L400.0302, L400.2200, L400.2500, L400.5100, L404.6500 ####Main Laboratory ([facility])[address], [place] [phone] Nivar, MD CO2 molar conc 23 mmol/L Normal 21-[address] [facility] Comment on above: Performed By: #### L 400.0202, L400.0302, L400.2200, L400.2500, L400.5100, L404.6500 ####Main Laboratory ([facility])[address], [place] [phone] Nivar, MD Creatinine mass conc 1.21 mg/dL Normal 0.70-1.[address] [facility] Comment on above: Performed By: #### L 400.0202, L400.0302, L400.2200, L400.2500, L400.5100, L404.6500 ####Main Laboratory ([facility])[address], [place] [phone] Nivar, MD GFR/1.73 sq M predicted among non-blacks MDRD vol rate/area (S/P/Bld) mL/min/{1.73_m2} Normal [facility] Comment on above: Result Comment: Electrical Engineering Drafting Officer usha Kidney Disease stages by NKDFStage eGFR I >90 II 60-89 III 30-59 IV 15-29 V <15 or dialysisAGE(years) AVERAGE GFR 50-59 93 ml/min/1.73 square metersNote:This result is normalized to 1.73 square meter body surface area. Height and weight are not factored. Performed By: #### L 400.0202, L400.0302, L400.2200, L400.2500, L400.5100, L404.6500 ####[facility] ([facility])[address] [place] [phone] Nivar, MD Glucose mass conc 101 mg/dL Normal 70-[address] [facility] Comment on above: Result Comment: *Thi s reference range applies to fasting specimens only. Performed By: #### L 400.0202, L400.0302, L400.2200, L400.2500, L400.5100, L404.6500 ####[facility] ([facility])[address] [place], [place] [phone] Nivar, MD Potassium molar conc 3.8 mmol/L Normal 3.6-5.[address] [facility] Comment on above: Performed By: #### L 400.0202, L400.0302, L400.2200, L400.2500, L400.5100, L404.6500 ####[facility] ([facility])[address] [place], [place] [phone] Nivar, MD Sodium molar conc 140 mmol/L Normal 135-[address] [facility] Comment on above: Result Comment: Delt a: 146 on 02/26/18 Performed By: #### L 400.0202, L400.0302, L400.2200, L400.2500, L400.5100, L404.6500 ####[facility] ([facility])[address] [place] [phone] Nivar, MD Urea nitrogen mass conc 24 mg/dL High 7-[address] [facility] Comment on above: Performed By: #### L 400.0202, L400.0302, L400.2200, L400.2500, L400.5100, L404.6500 ####[facility] ([facility])[address], [place] [phone] Nivar, MD Magnesiumon 02-27-2018 Magnesium mass conc 1.6 mg/dL Low 1.8-2.[address] [facility] Comment on above: Performed By: #### L 400.0202, L400.0302, L400.2200, L400.2500, L400.5100, L404.6500 ####[facility] ([facility])[address] [place] [phone] Nivar, MD Phosphoruson 02-27-2018 Phosphate mass conc 3.0 mg/dL Normal 2.4-4.[address] [facility] Comment on above: Performed By: #### L 400.0202, L400.0302, L400.2200, L400.2500, L400.5100, L404.6500 ####[facility] ([facility])[address] [place] [phone] Nivar, MD Basic Metabolic,Non-Fastingo n 02-26-2018 Anion gap 3 molar conc 10 mmol/L Normal 4-[address] [facility] Comment on above: Performed By: #### L 400.0202, L400.0302, L400.2200, L400.2500, L400.5100, L404.6500 ####[facility] ([facility])[address] [place] [phone] Nivar, MD Calcium mass conc 8.7 mg/dL Low 8.8-10.[address] [facility] Comment on above: Performed By: #### L 400.0202, L400.0302, L400.2200, L400.2500, L400.5100, L404.6500 ####[facility] ([facility])[address], [place] [phone] Nivar, MD Chloride molar conc 114 mmol/L High 101-[address] [facility] Comment on above: Performed By: #### L 400.0202, L400.0302, L400.2200, L400.2500, L400.5100, L404.6500 ####[facility] ([facility])[address], [place] [phone] Nivar, MD CO2 molar conc 22 mmol/L Normal 21-[address] [facility] Comment on above: Performed By: #### L 400.0202, L400.0302, L400.2200, L400.2500, L400.5100, L404.6500 ####[facility] ([facility])[address] [phone] Nivar, MD Creatinine mass conc 1.28 mg/dL Normal 0.70-1.[address] [facility] Comment on above: Performed By: #### L 400.0202, L400.0302, L400.2200, L400.2500, L400.5100, L404.6500 ####[facility] ([facility])[address], [place] [phone] Nivar, MD GFR/1.73 sq M predicted among non-blacks MDRD vol rate/area (S/P/Bld) mL/min/{1.73_m2} Normal [facility] Comment on above: Result Comment: Electrical Engineering Drafting Officer usha Kidney Disease stages by NKDFStage eGFR I >90 II 60-89 III 30-59 IV 15-29 V <15 or dialysisAGE(years) AVERAGE GFR 50-59 93 ml/min/1.73 square metersNote:This result is normalized to 1.73 square meter body surface area. Height and weight are not factored. Performed By: #### L 400.0202, L400.0302, L400.2200, L400.2500, L400.5100, L404.6500 ####[facility] ([facility])[address], [place] [phone] Nivar, MD Glucose mass conc 110 mg/dL Normal 70-[address] [facility] Comment on above: Result Comment: *Thi s reference range applies to fasting specimens only. Performed By: #### L 400.0202, L400.0302, L400.2200, L400.2500, L400.5100, L404.6500 ####[facility] ([facility])[address] [place] [phone] Nivar, MD Potassium molar conc 3.6 mmol/L Normal 3.6-5.[address] [facility] Comment on above: Performed By: #### L 400.0202, L400.0302, L400.2200, L400.2500, L400.5100, L404.6500 ####[facility] ([facility])[address], [place] [phone] Nivar, MD Sodium molar conc 146 mmol/L High 135-[address] [facility] Comment on above: Performed By: #### L 400.0202, L400.0302, L400.2200, L400.2500, L400.5100, L404.6500 ####[facility] ([facility])[address], [place] [phone] Nivar, MD Urea nitrogen mass conc 27 mg/dL High 7-[address] [facility] Comment on above: Performed By: #### L 400.0202, L400.0302, L400.2200, L400.2500, L400.5100, L404.6500 ####[facility] ([facility])[address] [place] [phone] Nivar, MD Magnesiumon 02-26-2018 Magnesium mass conc 1.9 mg/dL Normal 1.8-2.[address] [facility] Comment on above: Performed By: #### L 400.0202, L400.0302, L400.2200, L400.2500, L400.5100, L404.6500 ####[facility] ([facility])[address], [place] [phone] Nivar, MD Phosphoruson 02-26-2018 Phosphate mass conc 3.5 mg/dL Normal 2.4-4.[address] [facility] Comment on above: Performed By: #### L 400.0202, L400.0302, L400.2200, L400.2500, L400.5100, L404.6500 ####[facility] ([facility])[address] [place] [phone] Nivar, MD Basic Metabolic,Non-Fastingo n 02-25-2018 Anion gap 3 molar conc 9 mmol/L Normal 4-[address] [facility] Comment on above: Performed By: #### L 400.0202, L400.0302, L400.2200, L400.2500, L400.5100, L404.6500 ####[facility] ([facility])[address], [place] [phone] Nivar, MD Calcium mass conc 8.2 mg/dL Low 8.8-10.[address] [facility] Comment on above: Performed By: #### L 400.0202, L400.0302, L400.2200, L400.2500, L400.5100, L404.6500 ####[facility] ([facility])[address], [place] [phone] Nivar, MD Chloride molar conc 114 mmol/L High 101-[address] [facility] Comment on above: Performed By: #### L 400.0202, L400.0302, L400.2200, L400.2500, L400.5100, L404.6500 ####[facility] ([facility])[address], [place] [phone] Nivar, MD CO2 molar conc 22 mmol/L Normal 21-[address] [facility] Comment on above: Performed By: #### L 400.0202, L400.0302, L400.2200, L400.2500, L400.5100, L404.6500 ####[facility] ([facility])[address], [place] [phone] Nivar, MD Creatinine mass conc 1.32 mg/dL High 0.70-1.[address] [facility] Comment on above: Performed By: #### L 400.0202, L400.0302, L400.2200, L400.2500, L400.5100, L404.6500 ####[facility] ([facility])[address] [phone] Nivar, MD GFR/1.73 sq M predicted among non-blacks MDRD vol rate/area (S/P/Bld) mL/min/{1.73_m2} Normal [facility] Comment on above: Result Comment: Electrical Engineering Drafting Officer usha Kidney Disease stages by NKDFStage eGFR I >90 II 60-89 III 30-59 IV 15-29 V <15 or dialysisAGE(years) AVERAGE GFR 50-59 93 ml/min/1.73 square metersNote:This result is normalized to 1.73 square meter body surface area. Height and weight are not factored. Performed By: #### L 400.0202, L400.0302, L400.2200, L400.2500, L400.5100, L404.6500 ####[facility] ([facility])[address], [place] [phone] Nivar, MD Glucose mass conc 96 mg/dL Normal 70-[address] [facility] Comment on above: Result Comment: *Thi s reference range applies to fasting specimens only. Performed By: #### L 400.0202, L400.0302, L400.2200, L400.2500, L400.5100, L404.6500 ####[facility] ([facility])[address], [place] [phone] Nivar, MD Potassium molar conc 3.3 mmol/L Low 3.6-5.[address] [facility] Comment on above: Performed By: #### L 400.0202, L400.0302, L400.2200, L400.2500, L400.5100, L404.6500 ####[facility] ([facility])[address] [place] [phone] Nivar, MD Sodium molar conc 145 mmol/L Invalid Interpretation Code 135-[address] [facility] Comment on above: Result Comment: Delt a: 140 on 02/24/18-0403 Performed By: #### L 400.0202, L400.0302, L400.2200, L400.2500, L400.5100, L404.6500 ####[facility] ([facility])[address], [place] [phone] Nivar, MD Urea nitrogen mass conc 30 mg/dL High 7-[address] [facility] Comment on above: Performed By: #### L 400.0202, L400.0302, L400.2200, L400.2500, L400.5100, L404.6500 ####[facility] ([facility])[address] [place] [phone] Nivar, MD CBC with Differentialon 02-02 Abs Baso Count 100 /cmm Normal 0-[address] [facility] Comment on above: Performed By: #### L 400.0202, L400.0302, L400.2200, L400.2500, L400.5100, L404.6500 ####[facility] ([facility])[address], [place] [phone] Nivar, MD Abs Eos Count 400 /cmm Normal 0-[address] [facility] Comment on above: Performed By: #### L 400.0202, L400.0302, L400.2200, L400.2500, L400.5100, L404.6500 ####[facility] ([facility])[address], [place] [phone] Nivar, MD Abs [place] Count 900 /cmm High 0-[address] [facility] Comment on above: Performed By: #### L 400.0202, L400.0302, L400.2200, L400.2500, L400.5100, L404.6500 ####[facility] ([facility])[address], [place] [phone] Nivar, MD Abs Neut Count 9700 /cmm High 4066-[address] [facility] Comment on above: Performed By: #### L 400.0202, L400.0302, L400.2200, L400.2500, L400.5100, L404.6500 ####[facility] ([facility])[address], [place] [phone] Nivar, MD Basophils Auto #/vol (Bld) 0.4 % Normal 0-[address] [facility] Comment on above: Performed By: #### L 400.0202, L400.0302, L400.2200, L400.2500, L400.5100, L404.6500 ####[facility] ([facility])[address] [place] [phone] Nivar, MD EOS-Auto Diff 3.0 % Normal 0-[address] [facility] Comment on above: Performed By: #### L 400.0202, L400.0302, L400.2200, L400.2500, L400.5100, L404.6500 ####[facility] ([facility])[address], [place] [phone] Nivar, MD Erythrocyte distribution width Auto Ratio (RBC) 17.8 % High 12.0-16.[address] [facility] Comment on above: Performed By: #### L 400.0202, L400.0302, L400.2200, L400.2500, L400.5100, L404.6500 ####[facility] ([facility])[address], [place] [phone] Nivar, MD Hematocrit Auto Volume Fraction (Bld) 23.6 % Low 40.0-49.[address] [facility] Comment on above: Performed By: #### L 400.0202, L400.0302, L400.2200, L400.2500, L400.5100, L404.6500 ####[facility] ([facility])[address], [place] [phone] Nivar, MD Hemoglobin mass conc (Bld) 7.4 g/dL Low 13.5-16.[address] [facility] Comment on above: Performed By: #### L 400.0202, L400.0302, L400.2200, L400.2500, L400.5100, L404.6500 ####[facility] ([facility])[address], [place] [phone] Nivar, MD Lymphocytes Auto #/vol (Bld) 3000 /cmm Normal 6495-[address] [facility] Comment on above: Performed By: #### L 400.0202, L400.0302, L400.2200, L400.2500, L400.5100, L404.6500 ####[facility] ([facility])[address], [place] [phone] Nivar, MD Lymphocytes/100 WBC Auto (Bld) 21.1 % Normal 15-[address] [facility] Comment on above: Performed By: #### L 400.0202, L400.0302, L400.2200, L400.2500, L400.5100, L404.6500 ####[facility] ([facility])[address], [place] [phone] Nivar, MD MCH Auto Entitic mass (RBC) 29.1 pg Normal 27.5-33.[address] [facility] Comment on above: Performed By: #### L 400.0202, L400.0302, L400.2200, L400.2500, L400.5100, L404.6500 ####[facility] ([facility])[address] [place] [phone] Nivar, MD MCHC Auto mass conc (RBC) 31.3 g/dL Low 33.0-36.[address] [facility] Comment on above: Performed By: #### L 400.0202, L400.0302, L400.2200, L400.2500, L400.5100, L404.6500 ####[facility] ([facility])[address] [place] [phone] Nivar, MD MCV Auto Entitic volume (RBC) 93.2 CU SOPHIE Normal 80-[address] [facility] Comment on above: Performed By: #### L 400.0202, L400.0302, L400.2200, L400.2500, L400.5100, L404.6500 ####[facility] ([facility])[address] [place] [phone] Nivar, MD [place]- Auto Diff 6.6 % Normal 2-[address] [facility] Comment on above: Performed By: #### L 400.0202, L400.0302, L400.2200, L400.2500, L400.5100, L404.6500 ####[facility] ([facility])[address] [place] [phone] Nivar, MD Neut-Auto Diff 68.9 % Normal 40-[address] [facility] Comment on above: Performed By: #### L 400.0202, L400.0302, L400.2200, L400.2500, L400.5100, L404.6500 ####[facility] ([facility])[address], [place] [phone] Nivar, MD NRBC-Auto 0.1 /100 WBC Normal <[address] [facility] Comment on above: Performed By: #### L 400.0202, L400.0302, L400.2200, L400.2500, L400.5100, L404.6500 ####[facility] ([facility])[address], [place] [phone] Nivar, MD Platelets Auto #/vol (Bld) 304 th/cmm Normal 150-[address] [facility] Comment on above: Performed By: #### L 400.0202, L400.0302, L400.2200, L400.2500, L400.5100, L404.6500 ####[facility] ([facility])[address], [place] [phone] Nivar, MD RBC Auto #/vol (Bld) 2.53 mil/cmm Low 4.50-6.00 [facility] Comment on above: Performed By: #### L 400.0202, L400.0302, L400.2200, L400.2500, L400.5100, L404.6500 ####[facility] ([facility])[address] [phone] Nivar, MD WBC Auto #/vol (Bld) 14.1 th/cmm High 4.4-10.5 [facility] Comment on above: Performed By: #### L 400.0202, L400.0302, L400.2200, L400.2500, L400.5100, L404.6500 ####[facility] ([facility])[address], [place] [phone] Nivar, MD Ferritinon 02-25-2018 Ferritin [Mass/volume] in Serum or Plasma 1719 ng/mL High 24-[address] [facility] Comment on above: Performed By: #### L 400.0202, L400.0302, L400.2200, L400.2500, L400.5100, L404.6500 ####[facility] ([facility])[address], [place] [phone] Nivar, MD Hepatic Function Panel (Live r)on 02-25-2018 Albumin mass conc 3.2 g/dL Low 3.5-5.[address] [facility] Comment on above: Performed By: #### L 400.0202, L400.0302, L400.2200, L400.2500, L400.5100, L404.6500 ####[facility] ([facility])[address], [place] [phone] Nivar, MD Alk Phos 134 IU/L Normal 41-[address] [facility] Comment on above: Performed By: #### L 400.0202, L400.0302, L400.2200, L400.2500, L400.5100, L404.6500 ####[facility] ([facility])[address], [place] [phone] Nivar, MD ALT/SGPT 32 IU/L Normal 10-[address] [facility] Comment on above: Performed By: #### L 400.0202, L400.0302, L400.2200, L400.2500, L400.5100, L404.6500 ####[facility] ([facility])[address], [place] [phone] Nivar, MD AST/SGOT 33 IU/L Normal 15-[address] [facility] Comment on above: Performed By: #### L 400.0202, L400.0302, L400.2200, L400.2500, L400.5100, L404.6500 ####[facility] ([facility])[address], [place] [phone] Nivar, MD Bili, Total 0.5 mg/dL Normal 0.2-1.[address] [facility] Comment on above: Performed By: #### L 400.0202, L400.0302, L400.2200, L400.2500, L400.5100, L404.6500 ####[facility] ([facility])[address] [place] [phone] Nivar, MD Bili,Direct 0.1 mg/dL Normal 0.1-0.[address] [facility] Comment on above: Performed By: #### L 400.0202, L400.0302, L400.2200, L400.2500, L400.5100, L404.6500 ####[facility] ([facility])[address], [place] [phone] Nivar, MD Protein mass conc 7.8 g/dL Normal 6.2-8.[address] [facility] Comment on above: Performed By: #### L 400.0202, L400.0302, L400.2200, L400.2500, L400.5100, L404.6500 ####[facility] ([facility])[address], [place] [phone] Nivar, MD Iron Binding and Saturationo n 02-25-2018 Iron, Serum 59 mcg/dL Normal 45-[address] [facility] Comment on above: Performed By: #### L 400.0202, L400.0302, L400.2200, L400.2500, L400.5100, L404.6500 ####[facility] ([facility])[address], [place] [phone] Nivar, MD Transferrin mass conc 162 mg/dL Low 180-[address] [facility] Comment on above: Performed By: #### L 400.0202, L400.0302, L400.2200, L400.2500, L400.5100, L404.6500 ####[facility] ([facility])[address], [place] [phone] Nivar, MD % Iron Saturation 26 % Normal 20-[address] [facility] Comment on above: Performed By: #### L 400.0202, L400.0302, L400.2200, L400.2500, L400.5100, L404.6500 ####[facility] ([facility])[address], [place] [phone] Nivar, MD Magnesiumon 02-25-2018 Magnesium mass conc 1.6 mg/dL Low 1.8-2.[address] [facility] Comment on above: Performed By: #### L 400.0202, L400.0302, L400.2200, L400.2500, L400.5100, L404.6500 ####[facility] ([facility])[address], [place] [phone] Nivar, MD Phosphoruson 02-25-2018 Phosphate mass conc 3.6 mg/dL Normal 2.4-4.[address] [facility] Comment on above: Performed By: #### L 400.0202, L400.0302, L400.2200, L400.2500, L400.5100, L404.6500 ####[facility] ([facility])[address] [place] [phone] Nivar, MD Reticulocyte Counton 018 Reticulocyte Count 1.60 % Normal 0.90-2.[address] [facility] Comment on above: Performed By: #### L 400.0202, L400.0302, L400.2200, L400.2500, L400.5100, L404.6500 ####[facility] ([facility])[address], [place] [phone] Nivar, MD Basic Metabolic,Non-Fastingo n 02-24-2018 Anion gap 3 molar conc 9 mmol/L Normal 4-[address] [facility] Comment on above: Performed By: #### L 400.0202, L400.0302, L400.2200, L400.2500, L400.5100, L404.6500 ####[facility] ([facility])[address] [place] [phone] Nivar, MD Calcium mass conc 8.1 mg/dL Low 8.8-10.[address] [facility] Comment on above: Performed By: #### L 400.0202, L400.0302, L400.2200, L400.2500, L400.5100, L404.6500 ####[facility] ([facility])[address] [place] [phone] Nivar, MD Chloride molar conc 110 mmol/L Normal 101-[address] [facility] Comment on above: Performed By: #### L 400.0202, L400.0302, L400.2200, L400.2500, L400.5100, L404.6500 ####[facility] ([facility])[address] [place] [phone] Nivar, MD CO2 molar conc 21 mmol/L Normal 21-[address] [facility] Comment on above: Performed By: #### L 400.0202, L400.0302, L400.2200, L400.2500, L400.5100, L404.6500 ####[facility] ([facility])[address] [place] [phone] Nivar, MD Creatinine mass conc 1.42 mg/dL High 0.70-1.[address] [facility] Comment on above: Performed By: #### L 400.0202, L400.0302, L400.2200, L400.2500, L400.5100, L404.6500 ####[facility] ([facility])[address] [place] [phone] Nivar, MD GFR/1.73 sq M predicted among non-blacks MDRD vol rate/area (S/P/Bld) mL/min/{1.73_m2} Normal [facility] Comment on above: Result Comment: Electrical Engineering Drafting Officer usha Kidney Disease stages by NKDFStage eGFR I >90 II 60-89 III 30-59 IV 15-29 V <15 or dialysisAGE(years) AVERAGE GFR 50-59 93 ml/min/1.73 square metersNote:This result is normalized to 1.73 square meter body surface area. Height and weight are not factored. Performed By: #### L 400.0202, L400.0302, L400.2200, L400.2500, L400.5100, L404.6500 ####[facility] ([facility])[address], [place] [phone] Nivar, MD Glucose mass conc 112 mg/dL High 70-[address] [facility] Comment on above: Performed By: #### L 400.0202, L400.0302, L400.2200, L400.2500, L400.5100, L404.6500 ####[facility] ([facility])[address] [phone] Nivar, MD Potassium molar conc 3.7 mmol/L Normal 3.6-5.[address] [facility] Comment on above: Performed By: #### L 400.0202, L400.0302, L400.2200, L400.2500, L400.5100, L404.6500 ####Main Laboratory ([facility])[address], [place] [phone] Nivar, MD Sodium molar conc 140 mmol/L Normal 135-[address] [facility] Comment on above: Performed By: #### L 400.0202, L400.0302, L400.2200, L400.2500, L400.5100, L404.6500 ####Main Laboratory ([facility])[address], [place] [phone] Nivar, MD Urea nitrogen mass conc 32 mg/dL High 7-[address] [facility] Comment on above: Performed By: #### L 400.0202, L400.0302, L400.2200, L400.2500, L400.5100, L404.6500 ####Main Laboratory ([facility])[address], [place] [phone] Nivar, MD Ionized Calciumon 02-24-2018 Ionized Calcium 1.16 mmol/L Normal 1.15-1.[address] [facility] Comment on above: Performed By: #### L 400.0202, L400.0302, L400.2200, L400.2500, L400.5100, L404.6500 ####Main Laboratory ([facility])[address] [place], [place] [phone] Nivar, MD Magnesiumon 02-24-2018 Magnesium mass conc 1.9 mg/dL Normal 1.8-2.[address] [facility] Comment on above: Performed By: #### L 400.0202, L400.0302, L400.2200, L400.2500, L400.5100, L404.6500 ####Main Laboratory ([facility])[address], [place] [phone] Nivar, MD Phosphoruson 02-24-2018 Phosphate mass conc 4.1 mg/dL Normal 2.4-4.[address] [facility] Comment on above: Performed By: #### L 400.0202, L400.0302, L400.2200, L400.2500, L400.5100, L404.6500 ####Main Laboratory ([facility])[address], [place] [phone] Nivar, MD Basic Metabolic,Non-Fastingo n 02-23-2018 Anion gap 3 molar conc 10 mmol/L Normal 4-[address] [facility] Comment on above: Performed By: #### L 400.0202, L400.0302, L400.2200, L400.2500, L400.5100, L404.6500 ####[facility] ([facility])[address] [place] [phone] Nivar, MD Calcium mass conc 8.0 mg/dL Low 8.8-10.[address] [facility] Comment on above: Performed By: #### L 400.0202, L400.0302, L400.2200, L400.2500, L400.5100, L404.6500 ####[facility] ([facility])[address], [place] [phone] Nivar, MD Chloride molar conc 112 mmol/L High 101-[address] [facility] Comment on above: Performed By: #### L 400.0202, L400.0302, L400.2200, L400.2500, L400.5100, L404.6500 ####[facility] ([facility])[address], [place] [phone] Nivar, MD CO2 molar conc 19 mmol/L Low 21-[address] [facility] Comment on above: Performed By: #### L 400.0202, L400.0302, L400.2200, L400.2500, L400.5100, L404.6500 ####[facility] ([facility])[address], [place] [phone] Nivar, MD Creatinine mass conc 1.29 mg/dL Normal 0.70-1.[address] [facility] Comment on above: Performed By: #### L 400.0202, L400.0302, L400.2200, L400.2500, L400.5100, L404.6500 ####[facility] ([facility])[address], [place] [phone] Nivar, MD GFR/1.73 sq M predicted among non-blacks MDRD vol rate/area (S/P/Bld) mL/min/{1.73_m2} Normal [facility] Comment on above: Result Comment: [employer]ing [employer] usha Kidney Disease stages by NKDFStage eGFR I >90 II 60-89 III 30-59 IV 15-29 V <15 or dialysisAGE(years) AVERAGE GFR 50-59 93 ml/min/1.73 square metersNote:This result is normalized to 1.73 square meter body surface area. Height and weight are not factored. Performed By: #### L 400.0202, L400.0302, L400.2200, L400.2500, L400.5100, L404.6500 ####[facility] ([facility])[address], [place] [phone] Nivar, MD Glucose mass conc 97 mg/dL Normal 70-[address] [facility] Comment on above: Result Comment: *Thi s reference range applies to fasting specimens only. Performed By: #### L 400.0202, L400.0302, L400.2200, L400.2500, L400.5100, L404.6500 ####[facility] ([facility])[address], [place] [phone] Nivar, MD Potassium molar conc 3.8 mmol/L Normal 3.6-5.[address] [facility] Comment on above: Performed By: #### L 400.0202, L400.0302, L400.2200, L400.2500, L400.5100, L404.6500 ####[facility] ([facility])[address] [phone] Nivar, MD Sodium molar conc 141 mmol/L Normal 135-[address] [facility] Comment on above: Performed By: #### L 400.0202, L400.0302, L400.2200, L400.2500, L400.5100, L404.6500 ####[facility] ([facility])[address], [place] [phone] Nivar, MD Urea nitrogen mass conc 32 mg/dL High 7-[address] [facility] Comment on above: Performed By: #### L 400.0202, L400.0302, L400.2200, L400.2500, L400.5100, L404.6500 ####[facility] ([facility])[address] [phone] Nivar, MD Magnesiumon 02-23-2018 Magnesium mass conc 1.6 mg/dL Low 1.8-2.[address] [facility] Comment on above: Performed By: #### L 400.0202, L400.0302, L400.2200, L400.2500, L400.5100, L404.6500 ####[facility] ([facility])[address], [place] [phone] Nivar, MD Phosphoruson 02-23-2018 Phosphate mass conc 4.0 mg/dL Invalid Interpretation Code 2.4-4.[address] [facility] Comment on above: Result Comment: Delt a: 1.8 on 02/22/18 Performed By: #### L 400.0202, L400.0302, L400.2200, L400.2500, L400.5100, L404.6500 ####[facility] ([facility])[address] [phone] Nivar, MD Basic Metabolic,Non-Fastingo n 02-22-2018 Anion gap 3 molar conc 8 mmol/L Normal 4-[address] [facility] Comment on above: Performed By: #### L 400.0202, L400.0302, L400.2200, L400.2500, L400.5100, L404.6500 ####[facility] ([facility])[address] [phone] Nivar, MD Calcium mass conc 8.1 mg/dL Low 8.8-10.[address] [facility] Comment on above: Performed By: #### L 400.0202, L400.0302, L400.2200, L400.2500, L400.5100, L404.6500 ####[facility] ([facility])[address] [place] [phone] Nivar, MD Chloride molar conc 114 mmol/L High 101-[address] [facility] Comment on above: Performed By: #### L 400.0202, L400.0302, L400.2200, L400.2500, L400.5100, L404.6500 ####[facility] ([facility])[address] [place] [phone] Nivar, MD CO2 molar conc 20 mmol/L Low 21-[address] [facility] Comment on above: Performed By: #### L 400.0202, L400.0302, L400.2200, L400.2500, L400.5100, L404.6500 ####[facility] ([facility])[address] [place] [phone] Nivar, MD Creatinine mass conc 1.21 mg/dL Normal 0.70-1.[address] [facility] Comment on above: Performed By: #### L 400.0202, L400.0302, L400.2200, L400.2500, L400.5100, L404.6500 ####[facility] ([facility])[address] [place] [phone] Nivar, MD GFR/1.73 sq M predicted among non-blacks MDRD vol rate/area (S/P/Bld) mL/min/{1.73_m2} Normal [facility] Comment on above: Result Comment: Sarah usha Kidney Disease stages by NKDFStage eGFR I >90 II 60-89 III 30-59 IV 15-29 V <15 or dialysisAGE(years) AVERAGE GFR 50-59 93 ml/min/1.73 square metersNote:This result is normalized to 1.73 square meter body surface area. Height and weight are not factored. Performed By: #### L 400.0202, L400.0302, L400.2200, L400.2500, L400.5100, L404.6500 ####[facility] ([facility])[address] [place] [phone] Nivar, MD Glucose mass conc 107 mg/dL Normal 70-[address] [facility] Comment on above: Result Comment: *Thi s reference range applies to fasting specimens only. Performed By: #### L 400.0202, L400.0302, L400.2200, L400.2500, L400.5100, L404.6500 ####[facility] ([facility])[address], [place] [phone] Nivar, MD Potassium molar conc 4.3 mmol/L Normal 3.6-5.[address] [facility] Comment on above: Performed By: #### L 400.0202, L400.0302, L400.2200, L400.2500, L400.5100, L404.6500 ####[facility] ([facility])[address], [place] [phone] Nivar, MD Sodium molar conc 142 mmol/L Normal 135-[address] [facility] Comment on above: Performed By: #### L 400.0202, L400.0302, L400.2200, L400.2500, L400.5100, L404.6500 ####[facility] ([facility])[address], [place] [phone] Nivar, MD Urea nitrogen mass conc 35 mg/dL High 7-[address] [facility] Comment on above: Performed By: #### L 400.0202, L400.0302, L400.2200, L400.2500, L400.5100, L404.6500 ####[facility] ([facility])[address], [place] [phone] Nivar, MD CBC with Differentialon 02-02 Abs Baso Count 100 /cmm Normal 0-[address] [facility] Comment on above: Performed By: #### L 400.0202, L400.0302, L400.2200, L400.2500, L400.5100, L404.6500 ####[facility] ([facility])[address], [place] [phone] Nivar, MD Abs Eos Count 700 /cmm High 0-[address] [facility] Comment on above: Performed By: #### L 400.0202, L400.0302, L400.2200, L400.2500, L400.5100, L404.6500 ####[facility] ([facility])[address], [place] [phone] Nivar, MD Abs [place] Count 1000 /cmm High 0-[address] [facility] Comment on above: Performed By: #### L 400.0202, L400.0302, L400.2200, L400.2500, L400.5100, L404.6500 ####[facility] ([facility])[address], [place] [phone] Nivar, MD Abs Neut Count 07930 /cmm High 4016-[address] [facility] Comment on above: Performed By: #### L 400.0202, L400.0302, L400.2200, L400.2500, L400.5100, L404.6500 ####[facility] ([facility])[address], [place] [phone] Nivar, MD Basophils Auto #/vol (Bld) 0.5 % Normal 0-[address] [facility] Comment on above: Performed By: #### L 400.0202, L400.0302, L400.2200, L400.2500, L400.5100, L404.6500 ####[facility] ([facility])[address] [place] [phone] Nivar, MD EOS-Auto Diff 3.5 % Normal 0-[address] [facility] Comment on above: Performed By: #### L 400.0202, L400.0302, L400.2200, L400.2500, L400.5100, L404.6500 ####[facility] ([facility])[address] [place] [phone] Nivar, MD Erythrocyte distribution width Auto Ratio (RBC) 17.0 % High 12.0-16.[address] [facility] Comment on above: Performed By: #### L 400.0202, L400.0302, L400.2200, L400.2500, L400.5100, L404.6500 ####[facility] ([facility])[address], [place] [phone] Nivar, MD Hematocrit Auto Volume Fraction (Bld) 27.2 % Low 40.0-49.[address] [facility] Comment on above: Performed By: #### L 400.0202, L400.0302, L400.2200, L400.2500, L400.5100, L404.6500 ####[facility] ([facility])[address] [place] [phone] Nivar, MD Hemoglobin mass conc (Bld) 8.2 g/dL Low 13.5-16.[address] [facility] Comment on above: Performed By: #### L 400.0202, L400.0302, L400.2200, L400.2500, L400.5100, L404.6500 ####[facility] ([facility])[address] [place] [phone] Nivar, MD Lymphocytes Auto #/vol (Bld) 3600 /cmm Normal 9608-[address] [facility] Comment on above: Performed By: #### L 400.0202, L400.0302, L400.2200, L400.2500, L400.5100, L404.6500 ####[facility] ([facility])[address] [place] [phone] Nivar, MD Lymphocytes/100 WBC Auto (Bld) 17.6 % Normal 15-[address] [facility] Comment on above: Performed By: #### L 400.0202, L400.0302, L400.2200, L400.2500, L400.5100, L404.6500 ####[facility] ([facility])[address] [place] [phone] Nivar, MD MCH Auto Entitic mass (RBC) 28.4 pg Normal 27.5-33.[address] [facility] Comment on above: Performed By: #### L 400.0202, L400.0302, L400.2200, L400.2500, L400.5100, L404.6500 ####[facility] ([facility])[address] [place] [phone] Nivar, MD MCHC Auto mass conc (RBC) 30.3 g/dL Low 33.0-36.[address] [facility] Comment on above: Performed By: #### L 400.0202, L400.0302, L400.2200, L400.2500, L400.5100, L404.6500 ####[facility] ([facility])[address] [place], [place] [phone] Nivar, MD MCV Auto Entitic volume (RBC) 93.9 CU SOPHIE Normal 80-[address] [facility] Comment on above: Performed By: #### L 400.0202, L400.0302, L400.2200, L400.2500, L400.5100, L404.6500 ####[facility] ([facility])[address] [place] [phone] Nivar, MD [place]- Auto Diff 4.9 % Normal 2-[address] [facility] Comment on above: Performed By: #### L 400.0202, L400.0302, L400.2200, L400.2500, L400.5100, L404.6500 ####[facility] ([facility])[address] [place] [phone] Nivar, MD Neut-Auto Diff 73.5 % High 40-[address] [facility] Comment on above: Performed By: #### L 400.0202, L400.0302, L400.2200, L400.2500, L400.5100, L404.6500 ####[facility] ([facility])[address] [place] [phone] Nivar, MD NRBC-Auto 0.1 /100 WBC Normal <[address] [facility] Comment on above: Performed By: #### L 400.0202, L400.0302, L400.2200, L400.2500, L400.5100, L404.6500 ####[facility] ([facility])[address], [place] [phone] Nivar, MD Platelets Auto #/vol (Bld) 377 th/cmm Normal 150-[address] [facility] Comment on above: Performed By: #### L 400.0202, L400.0302, L400.2200, L400.2500, L400.5100, L404.6500 ####[facility] ([facility])[address], [place] [phone] Nivar, MD RBC Auto #/vol (Bld) 2.90 mil/cmm Low 4.50-6.00 [facility] Comment on above: Performed By: #### L 400.0202, L400.0302, L400.2200, L400.2500, L400.5100, L404.6500 ####[facility] ([facility])[address] [place] [phone] Nivar, MD WBC Auto #/vol (Bld) 20.5 th/cmm High 4.4-10.5 [facility] Comment on above: Performed By: #### L 400.0202, L400.0302, L400.2200, L400.2500, L400.5100, L404.6500 ####[facility] ([facility])[address] [place] [phone] Nivar, MD Clostridium difficile by PCR on 02-22-2018 Clostridium difficile by PCR Negative Normal Negative [facility] Comment on above: Result Comment: Meth odology: Nucleic Acid Amplification (Polymerase Chain Reaction,PCR)Positive C. Diffs should not be retested for 7 days.No testing on formed stools.For questions, please contact Microbiology lab at [phone].Performance characteristics of this assay have not beenevaluated in patients under 18 years of age. Significanceof positive results in children younger than 1 year isquestionable since they may be asymptomatically colonized. Performed By: #### L 400.0202, L400.0302, L400.2200, L400.2500, L400.5100, L404.6500 ####[facility] ([facility])[address] [place] [phone] Nivar, MD Hepatic Function Panel (Live r)on 02-22-2018 Albumin mass conc 3.1 g/dL Low 3.5-5.[address] [facility] Comment on above: Performed By: #### L 400.0202, L400.0302, L400.2200, L400.2500, L400.5100, L404.6500 ####[facility] ([facility])[address] [place] [phone] Nivar, MD Alk Phos 167 IU/L High 41-[address] [facility] Comment on above: Performed By: #### L 400.0202, L400.0302, L400.2200, L400.2500, L400.5100, L404.6500 ####[facility] ([facility])[address], [place] [phone] Nivar, MD ALT/SGPT 31 IU/L Normal 10-[address] [facility] Comment on above: Performed By: #### L 400.0202, L400.0302, L400.2200, L400.2500, L400.5100, L404.6500 ####[facility] ([facility])[address], [place] [phone] Nivar, MD AST/SGOT 32 IU/L Normal 15-[address] [facility] Comment on above: Performed By: #### L 400.0202, L400.0302, L400.2200, L400.2500, L400.5100, L404.6500 ####[facility] ([facility])[address], [place] [phone] Nivar, MD Bili,Direct 0.1 mg/dL Normal 0.1-0.[address] [facility] Comment on above: Performed By: #### L 400.0202, L400.0302, L400.2200, L400.2500, L400.5100, L404.6500 ####[facility] ([facility])[address], [place] [phone] Nivar, MD Bili,Total 0.4 mg/dL Normal 0.2-1.[address] [facility] Comment on above: Performed By: #### L 400.0202, L400.0302, L400.2200, L400.2500, L400.5100, L404.6500 ####[facility] ([facility])[address], [place] [phone] Nivar, MD Protein mass conc 7.6 g/dL Normal 6.2-8.[address] [facility] Comment on above: Performed By: #### L 400.0202, L400.0302, L400.2200, L400.2500, L400.5100, L404.6500 ####[facility] ([facility])[address], [place] [phone] Nivar, MD Magnesiumon 02-22-2018 Magnesium mass conc 1.6 mg/dL Low 1.8-2.[address] [facility] Comment on above: Performed By: #### L 400.0202, L400.0302, L400.2200, L400.2500, L400.5100, L404.6500 ####[facility] ([facility])[address], [place] [phone] Nivar, MD Phosphoruson 02-22-2018 Phosphate mass conc 1.8 mg/dL Low 2.4-4.[address] [facility] Comment on above: Performed By: #### L 400.0202, L400.0302, L400.2200, L400.2500, L400.5100, L404.6500 ####[facility] ([facility])[address], [place] [phone] Nivar, MD Prealbuminon 02-22-2018 Prealbumin mass conc 11.7 mg/dL Low 16.0-38.[address] [facility] Comment on above: Performed By: #### L 400.0202, L400.0302, L400.2200, L400.2500, L400.5100, L404.6500 ####[facility] ([facility])[address], [place] [phone] Nivar, MD Triglycerideson 02-22-2018 Triglyceride mass conc 169 mg/dL High <[address] [facility] Comment on above: Performed By: #### L 400.0202, L400.0302, L400.2200, L400.2500, L400.5100, L404.6500 ####[facility] ([facility])[address], [place] [phone] Nivar, MD Basic Metabolic,Non-Fastingo n 02-21-2018 Anion gap 3 molar conc 9 mmol/L Normal 4-[address] [facility] Comment on above: Performed By: #### L 400.0202, L400.0302, L400.2200, L400.2500, L400.5100, L404.6500 ####[facility] ([facility])[address], [place] [phone] Nivar, MD Calcium mass conc 7.6 mg/dL Low 8.8-10.[address] [facility] Comment on above: Performed By: #### L 400.0202, L400.0302, L400.2200, L400.2500, L400.5100, L404.6500 ####[facility] ([facility])[address], [place] [phone] Nivar, MD Chloride molar conc 112 mmol/L High 101-[address] [facility] Comment on above: Performed By: #### L 400.0202, L400.0302, L400.2200, L400.2500, L400.5100, L404.6500 ####[facility] ([facility])[address] [place] [phone] Nivar, MD CO2 molar conc 20 mmol/L Low 21-[address] [facility] Comment on above: Performed By: #### L 400.0202, L400.0302, L400.2200, L400.2500, L400.5100, L404.6500 ####[facility] ([facility])[address], [place] [phone] Nivar, MD Creatinine mass conc 1.48 mg/dL High 0.70-1.[address] [facility] Comment on above: Performed By: #### L 400.0202, L400.0302, L400.2200, L400.2500, L400.5100, L404.6500 ####[facility] ([facility])[address] [place] [phone] Nivar, MD GFR/1.73 sq M predicted among non-blacks MDRD vol rate/area (S/P/Bld) 59 mL/min/{1.73_m2} Low [facility] Comment on above: Result Comment: [facility] usha Kidney Disease stages by NKDFStage eGFR I >90 II 60-89 III 30-59 IV 15-29 V <15 or dialysisAGE(years) AVERAGE GFR 50-59 93 ml/min/1.73 square metersNote:This result is normalized to 1.73 square meter body surface area. Height and weight are not factored. Performed By: #### L 400.0202, L400.0302, L400.2200, L400.2500, L400.5100, L404.6500 ####[facility] ([facility])[address], [place] [phone] Nivar, MD Glucose mass conc 120 mg/dL High 70-[address] [facility] Comment on above: Performed By: #### L 400.0202, L400.0302, L400.2200, L400.2500, L400.5100, L404.6500 ####[facility] ([facility])[address], [place] [phone] Nivar, MD Potassium molar conc 3.6 mmol/L Normal 3.6-5.[address] [facility] Comment on above: Performed By: #### L 400.0202, L400.0302, L400.2200, L400.2500, L400.5100, L404.6500 ####[facility] ([facility])[address], [place] [phone] Nivar, MD Sodium molar conc 141 mmol/L Normal 135-[address] [facility] Comment on above: Performed By: #### L 400.0202, L400.0302, L400.2200, L400.2500, L400.5100, L404.6500 ####[facility] ([facility])[address], [place] [phone] Nivar, MD Urea nitrogen mass conc 39 mg/dL High 7-[address] [facility] Comment on above: Performed By: #### L 400.0202, L400.0302, L400.2200, L400.2500, L400.5100, L404.6500 ####[facility] ([facility])[address], [place] [phone] Nivar, MD Basic Metabolic,Non-Fastingo n 02-20-2018 Anion gap 3 molar conc 7 mmol/L Normal 4-[address] [facility] Comment on above: Performed By: #### L 400.0202, L400.0302, L400.2200, L400.2500, L400.5100, L404.6500 ####[facility] ([facility])[address], [place] [phone] Nivar, MD Calcium mass conc 7.6 mg/dL Low 8.8-10.[address] [facility] Comment on above: Performed By: #### L 400.0202, L400.0302, L400.2200, L400.2500, L400.5100, L404.6500 ####[facility] ([facility])[address], [place] [phone] Nivar, MD Chloride molar conc 118 mmol/L High 101-[address] [facility] Comment on above: Performed By: #### L 400.0202, L400.0302, L400.2200, L400.2500, L400.5100, L404.6500 ####[facility] ([facility])[address] [place] [phone] Nivar, MD CO2 molar conc 20 mmol/L Low 21-[address] [facility] Comment on above: Performed By: #### L 400.0202, L400.0302, L400.2200, L400.2500, L400.5100, L404.6500 ####[facility] ([facility])[address] [place] [phone] Nivar, MD Creatinine mass conc 1.54 mg/dL High 0.70-1.[address] [facility] Comment on above: Performed By: #### L 400.0202, L400.0302, L400.2200, L400.2500, L400.5100, L404.6500 ####[facility] ([facility])[address] [place] [phone] Nivar, MD GFR/1.73 sq M predicted among non-blacks MDRD vol rate/area (S/P/Bld) 57 mL/min/{1.73_m2} Low [facility] Comment on above: Result Comment: [employer]ing [employer] usha Kidney Disease stages by NKDFStage eGFR I >90 II 60-89 III 30-59 IV 15-29 V <15 or dialysisAGE(years) AVERAGE GFR 50-59 93 ml/min/1.73 square metersNote:This result is normalized to 1.73 square meter body surface area. Height and weight are not factored. Performed By: #### L 400.0202, L400.0302, L400.2200, L400.2500, L400.5100, L404.6500 ####Main Laboratory ([facility])[address] [place] [phone] Nivar, MD Glucose mass conc 121 mg/dL High 70-[address] [facility] Comment on above: Performed By: #### L 400.0202, L400.0302, L400.2200, L400.2500, L400.5100, L404.6500 ####[facility] ([facility])[address] [place] [phone] Nivar, MD Potassium molar conc 3.4 mmol/L Low 3.6-5.[address] [facility] Comment on above: Performed By: #### L 400.0202, L400.0302, L400.2200, L400.2500, L400.5100, L404.6500 ####[facility] ([facility])[address] [place], [place] [phone] Nivar, MD Sodium molar conc 145 mmol/L Normal 135-[address] [facility] Comment on above: Result Comment: Delt a: 150 on 02/19/18 Performed By: #### L 400.0202, L400.0302, L400.2200, L400.2500, L400.5100, L404.6500 ####[facility] ([facility])[address] [place], [place] [phone] Nivar, MD Urea nitrogen mass conc 48 mg/dL High 7-[address] [facility] Comment on above: Performed By: #### L 400.0202, L400.0302, L400.2200, L400.2500, L400.5100, L404.6500 ####[facility] ([facility])[address], [place] [phone] Nivar, MD Basic Metabolic,Non-Fastingo n 02-19-2018 Anion gap 3 molar conc 11 mmol/L Normal 4-[address] [facility] Comment on above: Performed By: #### L 400.0202, L400.0302, L400.2200, L400.2500, L400.5100, L404.6500 ####Main Laboratory ([facility])[address], [place] [phone] Nivar, MD Calcium mass conc 8.4 mg/dL Low 8.8-10.[address] [facility] Comment on above: Performed By: #### L 400.0202, L400.0302, L400.2200, L400.2500, L400.5100, L404.6500 ####[facility] ([facility])[address] [place] [phone] Nivar, MD Chloride molar conc 119 mmol/L High 101-[address] [facility] Comment on above: Performed By: #### L 400.0202, L400.0302, L400.2200, L400.2500, L400.5100, L404.6500 ####[facility] ([facility])[address], [place] [phone] Nivar, MD CO2 molar conc 20 mmol/L Low 21-[address] [facility] Comment on above: Performed By: #### L 400.0202, L400.0302, L400.2200, L400.2500, L400.5100, L404.6500 ####[facility] ([facility])[address] [place] [phone] Nivar, MD Creatinine mass conc 1.85 mg/dL High 0.70-1.[address] [facility] Comment on above: Performed By: #### L 400.0202, L400.0302, L400.2200, L400.2500, L400.5100, L404.6500 ####[facility] ([facility])[address], [place] [phone] Nivar, MD GFR/1.73 sq M predicted among non-blacks MDRD vol rate/area (S/P/Bld) 46 mL/min/{1.73_m2} Low [facility] Comment on above: Result Comment: Electrical Engineering Drafting Officer usha Kidney Disease stages by NKDFStage eGFR I >90 II 60-89 III 30-59 IV 15-29 V <15 or dialysisAGE(years) AVERAGE GFR 50-59 93 ml/min/1.73 square metersNote:This result is normalized to 1.73 square meter body surface area. Height and weight are not factored. Performed By: #### L 400.0202, L400.0302, L400.2200, L400.2500, L400.5100, L404.6500 ####[facility] ([facility])[address], [place] [phone] Nivar, MD Glucose mass conc 89 mg/dL Normal 70-[address] [facility] Comment on above: Result Comment: *Thi s reference range applies to fasting specimens only. Performed By: #### L 400.0202, L400.0302, L400.2200, L400.2500, L400.5100, L404.6500 ####[facility] ([facility])[address], [place] [phone] Nivar, MD Potassium molar conc 4.1 mmol/L Normal 3.6-5.[address] [facility] Comment on above: Performed By: #### L 400.0202, L400.0302, L400.2200, L400.2500, L400.5100, L404.6500 ####[facility] ([facility])[address], [place] [phone] Nivar, MD Sodium molar conc 150 mmol/L High 135-[address] [facility] Comment on above: Result Comment: Delt a: 145 on 02/18/18 Performed By: #### L 400.0202, L400.0302, L400.2200, L400.2500, L400.5100, L404.6500 ####[facility] ([facility])[address], [place] [phone] Nivar, MD Urea nitrogen mass conc 70 mg/dL High 7-[address] [facility] Comment on above: Performed By: #### L 400.0202, L400.0302, L400.2200, L400.2500, L400.5100, L404.6500 ####[facility] ([facility])[address], [place] [phone] Nivar, MD Cult,Bloodon 02-19-2018 Cult,Blood Specimen Description .BLOOD Special Requests R FOREARM 6ML Culture NO GROWTH 6 DAYS Report Status FINAL 02/19/2018 Normal [facility] Comment on above: Performed By: #### E RTPF, CONNER, LIP, LIVP, TEGCR ####[facility] [address] [place], [place] [address]24[address] Cult,Blood Specimen Description .BLOOD Special Requests RT HAND 1ML Culture NO GROWTH 6 DAYS Report Status FINAL 02/19/2018 Normal [facility] Comment on above: Performed By: #### E RTPF, CONNER, LIP, LIVP, TEGCR ####[facility] [address] [place], [place] 8078608 XR CHEST PORTABLEon 02-20-20 18 XR CHEST PORTABLE PROCEDURE: XR CHEST PORTABLECLINICAL [...] by:NADEGE Ellisigned by:Herminio Cardenas MD02/19/18inal result Normal [facility] Basic Metabolic,Non-Fastingo n 02-18-2018 Anion gap 3 molar conc 9 mmol/L Normal 4-[address] [facility] Comment on above: Performed By: #### L 400.0202, L400.0302, L400.2200, L400.2500, L400.5100, L404.6500 ####[facility] ([facility])[address] [place] [phone] Nivar, MD Calcium mass conc 8.3 mg/dL Low 8.8-10.[address] [facility] Comment on above: Performed By: #### L 400.0202, L400.0302, L400.2200, L400.2500, L400.5100, L404.6500 ####[facility] ([facility])[address], [place] [phone] Nivar, MD Chloride molar conc 113 mmol/L High 101-[address] [facility] Comment on above: Performed By: #### L 400.0202, L400.0302, L400.2200, L400.2500, L400.5100, L404.6500 ####[facility] ([facility])[address], [place] [phone] Nivar, MD CO2 molar conc 23 mmol/L Normal 21-[address] [facility] Comment on above: Performed By: #### L 400.0202, L400.0302, L400.2200, L400.2500, L400.5100, L404.6500 ####[facility] ([facility])[address], [place] [phone] Nivar, MD Creatinine mass conc 1.90 mg/dL High 0.70-1.[address] [facility] Comment on above: Performed By: #### L 400.0202, L400.0302, L400.2200, L400.2500, L400.5100, L404.6500 ####[facility] ([facility])[address]ín[address], [place] [phone] Nivar, MD GFR/1.73 sq M predicted among non-blacks MDRD vol rate/area (S/P/Bld) 45 mL/min/{1.73_m2} Low [facility] Comment on above: Result Comment: Electrical Engineering Drafting Officer usha Kidney Disease stages by NKDFStage eGFR I >90 II 60-89 III 30-59 IV 15-29 V <15 or dialysisAGE(years) AVERAGE GFR 50-59 93 ml/min/1.73 square metersNote:This result is normalized to 1.73 square meter body surface area. Height and weight are not factored. Performed By: #### L 400.0202, L400.0302, L400.2200, L400.2500, L400.5100, L404.6500 ####[facility] ([facility])[address] [place] [phone] Nivar, MD Glucose mass conc 142 mg/dL High 70-[address] [facility] Comment on above: Performed By: #### L 400.0202, L400.0302, L400.2200, L400.2500, L400.5100, L404.6500 ####[facility] ([facility])[address] [place] [phone] Nivar, MD Potassium molar conc 3.6 mmol/L Normal 3.6-5.[address] [facility] Comment on above: Performed By: #### L 400.0202, L400.0302, L400.2200, L400.2500, L400.5100, L404.6500 ####[facility] ([facility])[address] [place] [phone] Nivar, MD Sodium molar conc 145 mmol/L Invalid Interpretation Code 135-[address] [facility] Comment on above: Result Comment: Delt a: 139 on 02/17/18 Performed By: #### L 400.0202, L400.0302, L400.2200, L400.2500, L400.5100, L404.6500 ####[facility] ([facility])[address] [place] [phone] Nivar, MD Urea nitrogen mass conc 80 mg/dL High 7-[address] [facility] Comment on above: Performed By: #### L 400.0202, L400.0302, L400.2200, L400.2500, L400.5100, L404.6500 ####[facility] ([facility], [place] [phone] Nivar, MD Hepatic Function Panel (Live r)on 02-18-2018 Albumin mass conc 3.0 g/dL Low 3.5-5.[address] [facility] Comment on above: Performed By: #### L 400.0202, L400.0302, L400.2200, L400.2500, L400.5100, L404.6500 ####[facility] ([facility], [place] [phone] Nivar, MD Alk Phos 222 IU/L High 41-[address] [facility] Comment on above: Performed By: #### L 400.0202, L400.0302, L400.2200, L400.2500, L400.5100, L404.6500 ####[facility] ([facility], [place] [phone] Nivar, MD ALT/SGPT 52 IU/L High 10-[address] [facility] Comment on above: Performed By: #### L 400.0202, L400.0302, L400.2200, L400.2500, L400.5100, L404.6500 ####[facility] ([facility])[address], [place] [phone] Nivar, MD AST/SGOT 39 IU/L Normal 15-[address] [facility] Comment on above: Performed By: #### L 400.0202, L400.0302, L400.2200, L400.2500, L400.5100, L404.6500 ####[facility] ([facility])[address], [place] [phone] Nivar, MD Bili,Direct 0.3 mg/dL High 0.1-0.[address] [facility] Comment on above: Performed By: #### L 400.0202, L400.0302, L400.2200, L400.2500, L400.5100, L404.6500 ####[facility] ([facility])[address], [place] [phone] Nivar, MD Bili,Total 0.3 mg/dL Normal 0.2-1.[address] [facility] Comment on above: Result Comment: Delt a: 1.3 on 02/16/18 Performed By: #### L 400.0202, L400.0302, L400.2200, L400.2500, L400.5100, L404.6500 ####[facility] ([facility])[address], [place] [phone] Nivar, MD Protein mass conc 7.9 g/dL Normal 6.2-8.[address] [facility] Comment on above: Performed By: #### L 400.0202, L400.0302, L400.2200, L400.2500, L400.5100, L404.6500 ####[facility] ([facility])[address], [place] [phone] Nivar, MD Ionized Calciumon 02-18-2018 Ionized Calcium 1.24 mmol/L Normal 1.15-1.[address] [facility] Comment on above: Performed By: #### L 400.0202, L400.0302, L400.2200, L400.2500, L400.5100, L404.6500 ####[facility] ([facility])[address], [place] [phone] Nivar, MD Magnesiumon 02-18-2018 Magnesium mass conc 2.0 mg/dL Normal 1.8-2.[address] [facility] Comment on above: Performed By: #### L 400.0202, L400.0302, L400.2200, L400.2500, L400.5100, L404.6500 ####[facility] ([facility])[address], [place] [phone] Nivar, MD Phosphoruson 02-18-2018 Phosphate mass conc 2.9 mg/dL Normal 2.4-4.[address] [facility] Comment on above: Performed By: #### L 400.0202, L400.0302, L400.2200, L400.2500, L400.5100, L404.6500 ####[facility] ([facility])[address], [place] [phone] Nivar, MD Sputum culture/ smearon 02-01 INR [...] Clavulanate >64 R Trimethoprim/Sulfamethoxazole <=2/[address] [facility] Comment on above: Performed By: #### L 400.0202, L400.0302, L400.2200, L400.2500, L400.5100, L404.6500 ####[facility] ([facility])[address], [place] [phone] Nivar, MD Basic Metabolic,Non-Fastingo n 02-17-2018 Urea nitrogen mass conc 102 mg/dL High 7-[address] [facility] Comment on above: Performed By: #### L 400.0152, L400.2200, L400.5100 ####[facility] ([facility])[address], [place] [phone] Nivar, MD Anion gap 3 molar conc 12 mmol/L Normal 4-[address] [facility] Comment on above: Performed By: #### L 400.0152, L400.2200, L400.5100 ####[facility] ([facility])[address] [place] [phone] Nivar, MD Calcium mass conc 7.9 mg/dL Low 8.8-10.[address] [facility] Comment on above: Performed By: #### L 400.0152, L400.2200, L400.5100 ####[facility] ([facility])[address] [place], [place] [phone] Nivar, MD Chloride molar conc 105 mmol/L Normal 101-[address] [facility] Comment on above: Performed By: #### L 400.0152, L400.2200, L400.5100 ####[facility] ([facility])[address], [place] [phone] Nivar, MD CO2 molar conc 22 mmol/L Normal 21-[address] [facility] Comment on above: Performed By: #### L 400.0152, L400.2200, L400.5100 ####[facility] ([facility])[address], [place] [phone] Nivar, MD Creatinine mass conc 2.19 mg/dL High 0.70-1.[address] [facility] Comment on above: Performed By: #### L 400.0152, L400.2200, L400.5100 ####[facility] ([facility])[address] [phone] Nivar, MD GFR/1.73 sq M predicted among non-blacks MDRD vol rate/area (S/P/Bld) 38 mL/min/{1.73_m2} Low [facility] Comment on above: Result Comment: Electrical Engineering Drafting Officer uhsa Kidney Disease stages by NKDFStage eGFR I >90 II 60-89 III 30-59 IV 15-29 V <15 or dialysisAGE(years) AVERAGE GFR 50-59 93 ml/min/1.73 square metersNote:This result is normalized to 1.73 square meter body surface area. Height and weight are not factored. Performed By: #### L 400.0152, L400.2200, L400.5100 ####[facility] ([facility])[address] [phone] Nivar, MD Glucose mass conc 150 mg/dL High 70-[address] [facility] Comment on above: Performed By: #### L 400.0152, L400.2200, L400.5100 ####[facility] ([facility])[address] [phone] Nivar, MD Potassium molar conc 3.2 mmol/L Low 3.6-5.[address] [facility] Comment on above: Performed By: #### L 400.0152, L400.2200, L400.5100 ####[facility] ([facility])[address] [phone] Nivar, MD Sodium molar conc 139 mmol/L Normal 135-[address] [facility] Comment on above: Performed By: #### L 400.0152, L400.2200, L400.5100 ####[facility] ([facility])[address], [place] [phone] Nivar, MD Cult,Bloodon 02-17-2018 Cult,Blood Specimen Description .BLOOD Special Requests LAC 0.02 ML Culture NO GROWTH 6 DAYS Report Status FINAL 02/17/2018 [facility] Comment on above: Performed By: #### E RTPF, CONNER, LIP, LIVP, TEGCR ####[facility] [address] [place], [place] 7167[address] Cult,Blood Specimen Description .BLOOD Special Requests RAC 0.01 ML Culture NO GROWTH 6 DAYS Report Status FINAL 02/17/2018 [facility] Comment on above: Performed By: #### E RTPF, CONNER, LIP, LIVP, TEGCR ####[facility] [address] [place], [place] 9675308 MRSA screen, nasalon 018 MRSA screen, nasal No growth of MRSA. Normal [facility] Comment on above: Performed By: #### L 400.0202, L400.0302, L400.2200, L400.2500, L400.5100, L404.6500 ####[facility] ([facility])[address] [phone] Nivar, MD Magnesiumon 02-17-2018 Magnesium mass conc 2.1 mg/dL Normal 1.8-2.[address] [facility] Comment on above: Performed By: #### L 400.0152, L400.2200, L400.5100 ####[facility] ([facility])[address] [phone] Nivar, MD Phosphoruson 02-17-2018 Phosphate mass conc 3.6 mg/dL Normal 2.4-4.[address] [facility] Comment on above: Performed By: #### L 400.0152, L400.2200, L400.5100 ####[facility] ([facility])[address], [place] [phone] Nivar, MD VRE screen, fecon 02-17-2018 VRE screen, fec No growth of Vancomy get Resistant Enterococcus (VRE). Normal [facility] Comment on above: Performed By: #### L 400.0202, L400.0302, L400.2200, L400.2500, L400.5100, L404.6500 ####[facility] ([facility])[address], [place] [phone] Nivar, MD Basic Metabolic Panel,Fastin sabas 02-16-2018 Urea nitrogen mass conc 105 mg/dL High 7-[address] [facility] Comment on above: Performed By: #### L 400.0202, L400.0302, L400.2200, L400.2500, L400.5100, L404.6500 ####[facility] ([facility])[address], [place] [phone] Nivar, MD Anion gap 3 molar conc 14 mmol/L High 4-[address] [facility] Comment on above: Performed By: #### L 400.0202, L400.0302, L400.2200, L400.2500, L400.5100, L404.6500 ####[facility] ([facility])[address] [place] [phone] Nivar, MD Calcium mass conc 8.7 mg/dL Low 8.8-10.[address] [facility] Comment on above: Performed By: #### L 400.0202, L400.0302, L400.2200, L400.2500, L400.5100, L404.6500 ####[facility] ([facility])[address], [place] [phone] Nivar, MD Chloride molar conc 101 mmol/L Normal 101-[address] [facility] Comment on above: Performed By: #### L 400.0202, L400.0302, L400.2200, L400.2500, L400.5100, L404.6500 ####[facility] ([facility])[address] [phone] Nivar, MD CO2 molar conc 26 mmol/L Normal 21-[address] [facility] Comment on above: Performed By: #### L 400.0202, L400.0302, L400.2200, L400.2500, L400.5100, L404.6500 ####[facility] ([facility])[address], [place] [phone] Nivar, MD Creatinine mass conc 2.40 mg/dL High 0.70-1.[address] [facility] Comment on above: Performed By: #### L 400.0202, L400.0302, L400.2200, L400.2500, L400.5100, L404.6500 ####[facility] ([facility])[address], [place] [phone] Nivar, MD GFR/1.73 sq M predicted among non-blacks MDRD vol rate/area (S/P/Bld) 28 mL/min/{1.73_m2} Low [facility] Comment on above: Result Comment: Electrical Engineering Drafting Officer usha Kidney Disease stages by NKDFStage eGFR I >90 II 60-89 III 30-59 IV 15-29 V <15 or dialysisAGE(years) AVERAGE GFR 50-59 93 ml/min/1.73 square metersNote:This result is normalized to 1.73 square meter body surface area. Height and weight are not factored. Performed By: #### L 400.0202, L400.0302, L400.2200, L400.2500, L400.5100, L404.6500 ####[facility] ([facility])[address], [place] [phone] Nivar, MD Glucose mass conc 168 mg/dL High 70-[address] [facility] Comment on above: Performed By: #### L 400.0202, L400.0302, L400.2200, L400.2500, L400.5100, L404.6500 ####[facility] ([facility])[address], [place] [phone] Nivar, MD Potassium molar conc 3.4 mmol/L Low 3.6-5.[address] [facility] Comment on above: Performed By: #### L 400.0202, L400.0302, L400.2200, L400.2500, L400.5100, L404.6500 ####[facility] ([facility])[address], [place] [phone] Nivar, MD Sodium molar conc 141 mmol/L Normal 135-[address] [facility] Comment on above: Performed By: #### L 400.0202, L400.0302, L400.2200, L400.2500, L400.5100, L404.6500 ####[facility] ([facility])[address] [place], [place] [phone] Nivar, MD CBC with Differentialon 02-01 Abs Baso Count 100 /cmm Normal 0-[address] [facility] Comment on above: Performed By: #### L 100.0000 ####[facility] ([facility])[address] [place], [place] [phone] Nivar, MD Abs Eos Count 200 /cmm Normal 0-[address] [facility] Comment on above: Performed By: #### L 100.0000 ####[facility] ([facility])[address] [phone] Nivar, MD Abs Clallam Count 1700 /cmm High 0-[address] [facility] Comment on above: Performed By: #### L 100.0000 ####[facility] ([facility])[address], [place] [phone] Nivar, MD Abs Neut Count 97096 /cmm High 4722-[address] [facility] Comment on above: Performed By: #### L 100.0000 ####[facility] ([facility])[address], [place] [phone] Nivar, MD Basophils Auto #/vol (Bld) 0.4 % Normal 0-[address] [facility] Comment on above: Performed By: #### L 100.0000 ####[facility] ([facility])[address], [place] [phone] Nivar, MD EOS-Auto Diff 0.6 % Normal 0-[address] [facility] Comment on above: Performed By: #### L 100.0000 ####[facility] ([facility])[address] [place] [phone] Nivar, MD Erythrocyte distribution width Auto Ratio (RBC) 16.9 % High 12.0-16.[address] [facility] Comment on above: Performed By: #### L 100.0000 ####[facility] ([facility])[address] [place] [phone] Nivar, MD Hematocrit Auto Volume Fraction (Bld) 26.1 % Low 40.0-49.[address] [facility] Comment on above: Performed By: #### L 100.0000 ####[facility] ([facility])[address], [place] [phone] Nivar, MD Hemoglobin mass conc (Bld) 8.3 g/dL Low 13.5-16.[address] [facility] Comment on above: Performed By: #### L 100.0000 ####[facility] ([facility])[address], [place] [phone] Nivar, MD Lymphocytes Auto #/vol (Bld) 2000 /cmm Normal 1051-[address] [facility] Comment on above: Performed By: #### L 100.0000 ####[facility] ([facility])[address] [phone] Nivar, MD Lymphocytes/100 WBC Auto (Bld) 7.0 % Low 15-[address] [facility] Comment on above: Performed By: #### L 100.0000 ####[facility] ([facility])[address] [phone] Nivar, MD MCH Auto Entitic mass (RBC) 29.1 pg Normal 27.5-33.[address] [facility] Comment on above: Performed By: #### L 100.0000 ####[facility] ([facility])[address] [phone] Nivar, MD MCHC Auto mass conc (RBC) 31.8 g/dL Low 33.0-36.[address] [facility] Comment on above: Performed By: #### L 100.0000 ####[facility] ([facility])[address] [phone] Nivar, MD MCV Auto Entitic volume (RBC) 91.5 CU SOPHIE Normal 80-[address] [facility] Comment on above: Performed By: #### L 100.0000 ####[facility] ([facility])[address] [phone] Nivar, MD Cl[place]am- Auto Diff 5.7 % Normal 2-[address] [facility] Comment on above: Performed By: #### L 100.0000 ####[facility] ([facility])[address] [phone] Nivar, MD Neut-Auto Diff 86.3 % High 40-[address] [facility] Comment on above: Performed By: #### L 100.0000 ####[facility] ([facility])[address] [phone] Nivar, MD NRBC-Auto 0.1 /100 WBC Normal <[address] [facility] Comment on above: Performed By: #### L 100.0000 ####[facility] ([facility])[address] [place] [phone] Nivar, MD Platelets Auto #/vol (Bld) 516 th/cmm High 150-[address] [facility] Comment on above: Performed By: #### L 100.0000 ####[facility] ([facility])[address] [place] [phone] Nivar, MD RBC Auto #/vol (Bld) 2.85 mil/cmm Low 4.50-6.00 [facility] Comment on above: Performed By: #### L 100.0000 ####[facility] Laboratory ([facility])[address] [id number] Nivar, MD WBC Auto #/vol (Bld) 29.1 th/cmm High 4.4-10.5 [facility] Comment on above: Performed By: #### L 100.0000 ####Main Laboratory ([facility])[address] [phone] Nivar, MD Hepatic Function Panel (Live r)on 02-16-2018 Albumin mass conc 3.1 g/dL Low 3.5-5.[address] [facility] Comment on above: Performed By: #### L 400.0202, L400.0302, L400.2200, L400.2500, L400.5100, L404.6500 ####Main Laboratory ([facility])[address] [place] [phone] Nivar, MD Alk Phos 240 IU/L High 41-[address] [facility] Comment on above: Performed By: #### L 400.0202, L400.0302, L400.2200, L400.2500, L400.5100, L404.6500 ####Main Laboratory ([facility])[address], [place] [phone] Nivar, MD ALT/SGPT 80 IU/L High 10-[address] [facility] Comment on above: Performed By: #### L 400.0202, L400.0302, L400.2200, L400.2500, L400.5100, L404.6500 ####Main Laboratory ([facility])[address], [place] [phone] Nivar, MD AST/SGOT 43 IU/L High 15-[address] [facility] Comment on above: Performed By: #### L 400.0202, L400.0302, L400.2200, L400.2500, L400.5100, L404.6500 ####Main Laboratory ([facility])[address] [place], [place] [phone] Nivar, MD Bili,Direct 0.6 mg/dL High 0.1-0.[address] [facility] Comment on above: Performed By: #### L 400.0202, L400.0302, L400.2200, L400.2500, L400.5100, L404.6500 ####Main Laboratory ([facility])[address] [place], [place] [phone] Nivar, MD Bili,Total 1.3 mg/dL High 0.2-1.[address] [facility] Comment on above: Performed By: #### L 400.0202, L400.0302, L400.2200, L400.2500, L400.5100, L404.6500 ####Main Laboratory ([facility])[address], [place] [phone] Nivar, MD Protein mass conc 8.2 g/dL High 6.2-8.[address] [facility] Comment on above: Performed By: #### L 400.0202, L400.0302, L400.2200, L400.2500, L400.5100, L404.6500 ####Main Laboratory ([facility])[address] [place] [place] [phone] Nivar, MD Magnesiumon 02-16-2018 Magnesium mass conc 2.3 mg/dL Normal 1.8-2.[address] [facility] Comment on above: Performed By: #### L 400.0202, L400.0302, L400.2200, L400.2500, L400.5100, L404.6500 ####Main Laboratory ([facility])[address] [place], [place] [phone] Nivar, MD Phosphoruson 02-16-2018 Phosphate mass conc 3.8 mg/dL Normal 2.4-4.[address] [facility] Comment on above: Performed By: #### L 400.0202, L400.0302, L400.2200, L400.2500, L400.5100, L404.6500 ####Main Laboratory ([facility])[address] [place] [phone] Nivar, MD Prealbuminon 02-16-2018 Prealbumin mass conc 11.4 mg/dL Low 16.0-38.[address] [facility] Comment on above: Performed By: #### L 400.0202, L400.0302, L400.2200, L400.2500, L400.5100, L404.6500 ####Main Laboratory ([facility])[address] [place], [place] [phone] Nivar, MD Triglycerideson 02-16-2018 Triglyceride mass conc 142 mg/dL Normal <[address] [facility] Comment on above: Performed By: #### L 400.0202, L400.0302, L400.2200, L400.2500, L400.5100, L404.6500 ####Main Laboratory ([facility])[address] [place], [place] [phone] Nivar, MD XR ABDOMEN G TUBE PLACEMENTo [...] by:NADEGE Groveigned by:Elizabeth Barone MD02/16/inal result Normal [facility] Basic Metabolic Profon 02-15 Urea nitrogen mass conc 107 mg/dL Critically high - [facility] Comment on above: Result Comment: Prev ious Alert Value Reported Performed By: #### E RTPF, CONNER, LIP, LIVP, TEGCR ####[facility] [address] [place] [address] (cont.) Normal [facility] Comment on above: Result Comment: Aver age GFR for 50-59 years old: 93 mL/min/1.73sq mChronic Kidney Disease: <60 mL/min/1.73sq mKidney failure: <15 mL/min/1.73sq meGFR calculated using average adult body mass. Additional eGFR calculator available at:http://www.[employer].com/multiple_crcl_2012.htm Performed By: #### E RTPF, CONNER, LIP, LIVP, TEGCR ####[facility] [address] [place] [address] Anion gap 3 molar conc 19 mmol/L High 9-17 [facility] Comment on above: Performed By: #### E RTPF, CONNER, LIP, LIVP, TEGCR ####[facility] [address] [place] [address] Calcium mass conc 8.9 mg/dL Normal 8.6-10.4 [facility] Comment on above: Performed By: #### E RTPF, CONNER, LIP, LIVP, TEGCR ####[facility] [place] [address] Chloride molar conc 98 mmol/L Normal 98-107 [facility] Comment on above: Performed By: #### E RTPF, CONNER, LIP, LIVP, TEGCR ####[facility] [place] [address] CO2 molar conc 24 mmol/L Normal 20-31 [facility] Comment on above: Performed By: #### E RTPF, CONNER, LIP, LIVP, TEGCR ####[address] [address] Creatinine mass conc 2.51 mg/dL High 0.70-1.20 [facility] Comment on above: Performed By: #### E RTPF, CONNER, LIP, LIVP, TEGCR ####[facility] [place] [address] GFR, Amer 32 mL/min Low >60 [facility] Comment on above: Performed By: #### E RTPF, CONNER, LIP, LIVP, TEGCR ####[facility] [address] [place] [address] GFR,non Amer 27 mL/min Low >60 [facility] Comment on above: Performed By: #### E RTPF, CONNER, LIP, LIVP, TEGCR ####[address] [place] [address] Glucose mass conc 146 mg/dL High 70-99 [facility] Comment on above: Performed By: #### E RTPF, CONNER, LIP, LIVP, TEGCR ####[address] [address] Potassium molar conc 3.3 mmol/L Low 3.7-5.3 [facility] Comment on above: Performed By: #### E RTPF, CONNER, LIP, LIVP, TEGCR ####[address] [address] Sodium molar conc 141 mmol/L Normal 135-144 [facility] Comment on above: Performed By: #### E RTPF, CONNER, LIP, LIVP, TEGCR ####[address] [address] BUN/CRE Ratio NOT REPORTED Normal - [facility] Comment on above: Performed By: #### E RTPF, CONNER, LIP, LIVP, TEGCR ####[address] [address] Staging: NOT REPORTED Normal [facility] Comment on above: Performed By: #### E RTPF, CONNER, LIP, LIVP, TEGCR ####[address] [address] CBCon 02-15-2018 Erythrocyte distribution width Auto Ratio (RBC) 16.5 % High 11.8-14.4 [facility] Comment on above: Performed By: #### E RTPF, CONNER, LIP, LIVP, TEGCR ####[address] [address] Hematocrit Auto Volume Fraction (Bld) 27.4 % Low 40.7-50.3 [facility] Comment on above: Performed By: #### E RTPF, CONNER, LIP, LIVP, TEGCR ####[address] [address] Hemoglobin mass conc (Bld) 8.6 g/dL Low 13.0-17.0 [facility] Comment on above: Performed By: #### E RTPF, CONNER, LIP, LIVP, TEGCR ####[address] [address] MCH Auto Entitic mass (RBC) 29.1 pg Normal 25.2-33.5 [facility] Comment on above: Performed By: #### E RTPF, CONNER, LIP, LIVP, TEGCR ####[address] [address] MCHC Auto mass conc (RBC) 31.4 g/dL Normal 28.4-34.8 [facility] Comment on above: Performed By: #### E RTPF, CONNER, LIP, LIVP, TEGCR ####[address] [address] MCV Auto Entitic volume (RBC) 92.6 fL Normal 82.6-102.9 [facility] Comment on above: Performed By: #### E RTPF, CONNER, LIP, LIVP, TEGCR ####[address] [address] NRBC Automated 0.1 per 100 WBC High 0.0 [facility] Comment on above: Performed By: #### E RTPF, CONNER, LIP, LIVP, TEGCR ####[address] [address] Platelet mean volume Auto Entitic volume (Bld) 12.4 fL Normal 8.1-13.5 [facility] Comment on above: Performed By: #### E RTPF, CONNER, LIP, LIVP, TEGCR ####[address] [address] Platelets Auto #/vol (Bld) 533 10*3/uL High 138-453 [facility] Comment on above: Performed By: #### E RTPF, CONNER, LIP, LIVP, TEGCR ####[address] [address] RBC Auto #/vol (Bld) 2.96 10*6/uL Low 4.21-5.77 [facility] Comment on above: Performed By: #### E RTPF, CONNER, LIP, LIVP, TEGCR ####[address] [address] WBC Auto #/vol (Bld) 28.7 10*3/uL High 3.5-11.3 [facility] Comment on above: Performed By: #### E RTPF, CONNER, LIP, LIVP, TEGCR ####[address] [address] Magnesiumon 02-15-2018 Magnesium mass conc 2.4 mg/dL Normal 1.6-2.6 [facility] Comment on above: Performed By: #### E RTPF, CONNER, LIP, LIVP, TEGCR ####[address] [address] Phosphorus, Inorg.on 018 Phosphorus, Inorg. 4.3 mg/dL Normal 2.5-4.5 [facility] Comment on above: Performed By: #### E RTPF, CONNRE, LIP, LIVP, TEGCR ####[address] [address] Basic Metabolic Profon 02-14 Urea nitrogen mass conc 101 mg/dL Critically high 6-20 [facility] Comment on above: Performed By: #### E RTPF, CONNER, LIP, LIVP, TEGCR ####[address] [address] (cont.) Normal [facility] Comment on above: Result Comment: Aver age GFR for 50-59 years old: 93 mL/min/1.73sq mChronic Kidney Disease: <60 mL/min/1.73sq mKidney failure: <15 mL/min/1.73sq meGFR calculated using average adult body mass. Additional eGFR calculator available at:http://www.[employer]/multiple_crcl_2012.htm Performed By: #### E RTPF, CONNER, LIP, LIVP, TEGCR ####[facility] [address] [place] [address] Anion gap 3 molar conc 20 mmol/L High 9-17 [facility] Comment on above: Performed By: #### E RTPF, CONNER, LIP, LIVP, TEGCR ####[facility] [address] [place] [address] Calcium mass conc 9.0 mg/dL Normal 8.6-10.4 [facility] Comment on above: Performed By: #### E RTPF, CONNER, LIP, LIVP, TEGCR ####[facility] [place] [address] Chloride molar conc 93 mmol/L Low 98-107 [facility] Comment on above: Performed By: #### E RTPF, CONNER, LIP, LIVP, TEGCR ####[facility] [address] [place] [address] CO2 molar conc 24 mmol/L Normal 20-31 [facility] Comment on above: Performed By: #### E RTPF, CONNER, LIP, LIVP, TEGCR ####[facility] [address] [place] [address] Creatinine mass conc 2.97 mg/dL High 0.70-1.20 [facility] Comment on above: Performed By: #### E RTPF, CONNER, LIP, LIVP, TEGCR ####[address] [address] GFR, Amer 27 mL/min Low >60 [facility] Comment on above: Performed By: #### E RTPF, CONNER, LIP, LIVP, TEGCR ####[facility] [address] [place] [address] GFR,non Amer 22 mL/min Low >60 [facility] Comment on above: Performed By: #### E RTPF, CONNER, LIP, LIVP, TEGCR ####[facility] [address] [place] [address] Glucose mass conc 146 mg/dL High 70-99 [facility] Comment on above: Performed By: #### E RTPF, CONNER, LIP, LIVP, TEGCR ####[address] [address] Potassium molar conc 3.7 mmol/L Normal 3.7-5.3 [facility] Comment on above: Performed By: #### E RTPF, CONNER, LIP, LIVP, TEGCR ####[address] [address] Sodium molar conc 137 mmol/L Normal 135-144 [facility] Comment on above: Performed By: #### E RTPF, CONNER, LIP, LIVP, TEGCR ####[address] [address] BUN/CRE Ratio NOT REPORTED Normal 9-20 [facility] Comment on above: Performed By: #### E RTPF, CONNER, LIP, LIVP, TEGCR ####[address] [address] Staging: NOT REPORTED Normal [facility] Comment on above: Performed By: #### E RTPF, CONNER, LIP, LIVP, TEGCR ####[address] [address] CBCon 02-14-2018 Erythrocyte distribution width Auto Ratio (RBC) 16.2 % High 11.8-14.4 [facility] Comment on above: Performed By: #### E RTPF, CONNER, LIP, LIVP, TEGCR ####[address] [place] [address] Hematocrit Auto Volume Fraction (Bld) 34.2 % Low 40.7-50.3 [facility] Comment on above: Performed By: #### E RTPF, CONNER, LIP, LIVP, TEGCR ####[address] [address] Hemoglobin mass conc (Bld) 11.2 g/dL Low 13.0-17.0 [facility] Comment on above: Performed By: #### E RTPF, CONNER, LIP, LIVP, TEGCR ####[address] [address] MCH Auto Entitic mass (RBC) 29.2 pg Normal 25.2-33.5 [facility] Comment on above: Performed By: #### E RTPF, CONNER, LIP, LIVP, TEGCR ####[address] [address] MCHC Auto mass conc (RBC) 32.7 g/dL Normal 28.4-34.8 [facility] Comment on above: Performed By: #### E RTPF, CONNER, LIP, LIVP, TEGCR ####[address] [address] MCV Auto Entitic volume (RBC) 89.3 fL Normal 82.6-102.9 [facility] Comment on above: Performed By: #### E RTPF, CONNER, LIP, LIVP, TEGCR ####[address] [address] NRBC Automated 0.3 per 100 WBC High 0.0 [facility] Comment on above: Performed By: #### E RTPF, CONNER, LIP, LIVP, TEGCR ####[address] [address] Platelet mean volume Auto Entitic volume (Bld) 11.4 fL Normal 8.1-13.5 [facility] Comment on above: Performed By: #### E RTPF, CONNER, LIP, LIVP, TEGCR ####[address] [place] [address] Platelets Auto #/vol (Bld) 145 10*3/uL Normal 138-453 [facility] Comment on above: Performed By: #### E RTPF, CONNER, LIP, LIVP, TEGCR ####[address] [address] RBC Auto #/vol (Bld) 3.83 10*6/uL Low 4.21-5.77 [facility] Comment on above: Performed By: #### E RTPF, CONNER, LIP, LIVP, TEGCR ####[address] [address] WBC Auto #/vol (Bld) 19.5 10*3/uL High 3.5-11.3 [facility] Comment on above: Performed By: #### E RTPF, OCNNER, LIP, LIVP, TEGCR ####[address] [address] US RETROPERITONEAL LIMITEDon 02-14-2018 US RETROPERITONEAL LIMITED EXAMINATION:RETROPERITONEAL ULTRASOUND OF THE KIDNEYS AND URINARY [id number]/14/2018COMPARISON:1 CTHISTORY:ORDERING SYSTEM PROVIDED HISTORY: RENAL FAILURE, ACUTE (KIDNEY INJURY)FINDINGS:Kidneys:The right kidney measures 11.3 cm in length and the left kidney measures 12.2cm in length.Mild right renal pelviectasis, better seen on recent CT. No perinephriccollection bilaterally.Bladder:Not imagedIMPRESSION: Mild right renal pelviectasis. Please refer to CT performed 1 day prior.Interpreted by:NADEGE Hoodigned by:Jonathan Jones MD02/14/18Final result Normal [facility] XR CHEST PORTABLEon 02-15-20 18 XR [...] left pleural effusion.Interpreted by:NADEGE Wrightigned by:Cassie Guzmán MD02/14/18Final result Normal [facility] Basic Metabolic Profon 02-13 Urea nitrogen mass conc 102 mg/dL Critically high - [facility] Comment on above: Performed By: #### E RTPF, CONNER, LIP, LIVP, TEGCR ####[address] [place] [address] (cont.) Normal [facility] Comment on above: Result Comment: Aver age GFR for 50-59 years old: 93 mL/min/1.73sq mChronic Kidney Disease: <60 mL/min/1.73sq mKidney failure: <15 mL/min/1.73sq meGFR calculated using average adult body mass. Additional eGFR calculator available at:http://www.[employer].com/multiple_crcl_2012.htm Performed By: #### E RTPF, CONNER, LIP, LIVP, TEGCR ####[address] [place] [address] Anion gap 3 molar conc 16 mmol/L Normal 9-17 [facility] Comment on above: Performed By: #### E RTPF, CONNER, LIP, LIVP, TEGCR ####[address] [address] Calcium mass conc 8.7 mg/dL Normal 8.6-10.4 [facility] Comment on above: Performed By: #### E RTPF, CONNER, LIP, LIVP, TEGCR ####[address] [address] Chloride molar conc 98 mmol/L Normal 98-107 [facility] Comment on above: Performed By: #### E RTPF, CONNER, LIP, LIVP, TEGCR ####[address] [place] [address] CO2 molar conc 20 mmol/L Normal 20-31 [facility] Comment on above: Performed By: #### E RTPF, CONNER, LIP, LIVP, TEGCR ####[address] [place] [address] Creatinine mass conc 3.44 mg/dL High 0.70-1.20 [facility] Comment on above: Performed By: #### E RTPF, CONNER, LIP, LIVP, TEGCR ####[address] [place] [address] GFR, Amer 22 mL/min Low >60 [facility] Comment on above: Performed By: #### E RTPF, CONNER, LIP, LIVP, TEGCR ####[facility] [address] [place] [address] GFR,non Amer 19 mL/min Low >60 [facility] Comment on above: Performed By: #### E RTPF, CONNER, LIP, LIVP, TEGCR ####[facility] [place] [address] Glucose mass conc 151 mg/dL High 70-99 [facility] Comment on above: Performed By: #### E RTPF, CONNER, LIP, LIVP, TEGCR ####[address] [place] [address] Potassium molar conc 4.5 mmol/L Normal 3.7-5.3 [facility] Comment on above: Performed By: #### E RTPF, CONNER, LIP, LIVP, TEGCR ####[address] [address] Sodium molar conc 134 mmol/L Low 135-144 [facility] Comment on above: Performed By: #### E RTPF, CONNER, LIP, LIVP, TEGCR ####[facility] [place] [address] BUN/CRE Ratio NOT REPORTED Normal 9-20 [facility] Comment on above: Performed By: #### E RTPF, CONNER, LIP, LIVP, TEGCR ####[facility] [place] [address] Staging: NOT REPORTED Normal [facility] Comment on above: Performed By: #### E RTPF, CONNER, LIP, LIVP, TEGCR ####[address] [place] [address] Brain Natri. Peptideon 02-13 Natriuretic peptide B mass conc (Bld) 769 pg/mL High <300 [facility] Comment on above: Result Comment: Pro- BNP results cannot be compared to BNP results. Performed By: #### E RTPF, CONNER, LIP, LIVP, TEGCR ####[address] [address] Natriuretic peptide B mass conc (Bld) Normal [facility] Comment on above: Result Comment: Pro- BNP Reference Range:Rule Out: <300Grey Zone: Age <50 300-450 Age 50-75 300-900 Age >75 300-1800Usually represents mild to moderate HF but other cardiopulmonary causes cannot be ruled out.Rule In: Age <50 >450 Age 50-75 >900 Age >75 >1800 Performed By: #### E RTPF, CONNER, LIP, LIVP, TEGCR ####[address] [address] CBCon 02-13-2018 Erythrocyte distribution width Auto Ratio (RBC) 16.5 % High 11.8-14.4 [facility] Comment on above: Performed By: #### E RTPF, CONNER, LIP, LIVP, TEGCR ####[address] [address] Hematocrit Auto Volume Fraction (Bld) 24.7 % Low 40.7-50.3 [facility] Comment on above: Performed By: #### E RTPF, CONNER, LIP, LIVP, TEGCR ####[address] [address] Hemoglobin mass conc (Bld) 8.1 g/dL Low 13.0-17.0 [facility] Comment on above: Performed By: #### E RTPF, CONNER, LIP, LIVP, TEGCR ####[address] [address] MCH Auto Entitic mass (RBC) 29.7 pg Normal 25.2-33.5 [facility] Comment on above: Performed By: #### E RTPF, CONNER, LIP, LIVP, TEGCR ####[address] [address] MCHC Auto mass conc (RBC) 32.8 g/dL Normal 28.4-34.8 [facility] Comment on above: Performed By: #### E RTPF, CONNER, LIP, LIVP, TEGCR ####[address] [address] MCV Auto Entitic volume (RBC) 90.5 fL Normal 82.6-102.9 [facility] Comment on above: Performed By: #### E RTPF, CONNER, LIP, LIVP, TEGCR ####[address] [address] NRBC Automated 0.3 per 100 WBC High 0.0 [facility] Comment on above: Performed By: #### E RTPF, CONNER, LIP, LIVP, TEGCR ####[address] [address] Platelet mean volume Auto Entitic volume (Bld) 11.9 fL Normal 8.1-13.5 [facility] Comment on above: Performed By: #### E RTPF, CONNER, LIP, LIVP, TEGCR ####[address] [address] Platelets Auto #/vol (Bld) 490 10*3/uL High 138-453 [facility] Comment on above: Performed By: #### E RTPF, CONNER, LIP, LIVP, TEGCR ####[address] [address] RBC Auto #/vol (Bld) 2.73 10*6/uL Low 4.21-5.77 [facility] Comment on above: Performed By: #### E RTPF, CONNER, LIP, LIVP, TEGCR ####[address] [place] [address] WBC Auto #/vol (Bld) 25.7 10*3/uL High 3.5-11.3 [facility] Comment on above: Performed By: #### E RTPF, CONNER, LIP, LIVP, TEGCR ####[address] [place] [address] CT ABDOMEN PELVIS WO CONTRAS Ton 02-13-2018 [...] collections. There is compression deformity at the M8vyjkslftm body.IMPRESSION: 1. Fluid-filled dilated small bowel loops [...] by:NADEGE Vidaligned by:Anjel Hernandez MD02/13/18Final result Normal [facility] XR ABDOMEN (KUB) (SINGLE AP VIEW)on 02-13-2018 XR ABDOMEN (KUB) (SINGLE AP VIEW) EXAMINATION:SINGLE SUPINE XRAY VIEW(S) OF THE [id number]/13/2018 7:15 amHISTORY:ORDERING SYSTEM PROVIDED HISTORY: abd painTECHNOLOGIST PROVIDED HISTORY:abd painFINDINGS:Air-filled, mildly dilated loops of small and large bowel are identified.Catheter projects over the right lower hemiabdomen. Peg tube in place.Osseous structures grossly intact.IMPRESSION: The appearance of ileus in the gastrointestinal tract has not significantlychanged compared to 02/10/2018Interpreted by:NADEGE Vidaligned by:Anjel Hernandez MD02/13/18Final result Normal [facility] Basic Metabolic Profon 02-12 (cont.) Normal [facility] Comment on above: Result Comment: Aver age GFR for 50-59 years old: 93 mL/min/1.73sq mChronic Kidney Disease: <60 mL/min/1.73sq mKidney failure: <15 mL/min/1.73sq meGFR calculated using average adult body mass. Additional eGFR calculator available at:http://www.[employer]/multiple_crcl_2012.htm Performed By: #### E RTPF, CONNER, LIP, LIVP, TEGCR ####[facility] [address] [place] [address] [id number] Anion gap 3 molar conc 16 mmol/L Normal 9-17 [facility] Comment on above: Performed By: #### E RTPF, CONNER, LIP, LIVP, TEGCR ####[facility] [address] [place] [id number] Calcium mass conc 8.9 mg/dL Normal 8.6-10.4 [facility] Comment on above: Performed By: #### E RTPF, CONNER, LIP, LIVP, TEGCR ####[address] [place] [address] Chloride molar conc 96 mmol/L Low 98-107 [facility] Comment on above: Performed By: #### E RTPF, CONNER, LIP, LIVP, TEGCR ####[address] [address] CO2 molar conc 19 mmol/L Low 20-31 [facility] Comment on above: Performed By: #### E RTPF, CONNER, LIP, LIVP, TEGCR ####[address] [address] Creatinine mass conc 3.22 mg/dL High 0.70-1.20 [facility] Comment on above: Performed By: #### E RTPF, CONNER, LIP, LIVP, TEGCR ####[address] [address] GFR, Amer 24 mL/min Low >60 [facility] Comment on above: Performed By: #### E RTPF, CONNER, LIP, LIVP, TEGCR ####[address] [address] GFR,non Amer 20 mL/min Low >60 [facility] Comment on above: Performed By: #### E RTPF, CONNER, LIP, LIVP, TEGCR ####[address] [address] Glucose mass conc 134 mg/dL High 70-99 [facility] Comment on above: Performed By: #### E RTPF, CONNER, LIP, LIVP, TEGCR ####[address] [address] Potassium molar conc 4.1 mmol/L Normal 3.7-5.3 [facility] Comment on above: Performed By: #### E RTPF, CONNER, LIP, LIVP, TEGCR ####[facility] [address] [place] [address] Sodium molar conc 131 mmol/L Low 135-144 [facility] Comment on above: Performed By: #### E RTPF, CONNER, LIP, LIVP, TEGCR ####[facility] [address] [place] [address] Urea nitrogen mass conc 89 mg/dL High -20 [facility] Comment on above: Performed By: #### E RTPF, CONNER, LIP, LIVP, TEGCR ####[facility] [place] [address] BUN/CRE Ratio NOT REPORTED Normal - [facility] Comment on above: Performed By: #### E RTPF, CONNER, LIP, LIVP, TEGCR ####[address] [address] Staging: NOT REPORTED Normal [facility] Comment on above: Performed By: #### E RTPF, CONNER, LIP, LIVP, TEGCR ####[address] [place] [address] Brain Natri. Peptideon 02-12 Natriuretic peptide B mass conc (Bld) Normal [facility] Comment on above: Result Comment: Pro- BNP Reference Range:Rule Out: <300Grey Zone: Age <50 300-450 Age 50-75 300-900 Age >75 300-1800Usually represents mild to moderate HF but other cardiopulmonary causes cannot be ruled out.Rule In: Age <50 >450 Age 50-75 >900 Age >75 >1800 Performed By: #### E RTPF, CONNER, LIP, LIVP, TEGCR ####[facility] [place] [address] Natriuretic peptide B mass conc (Bld) 648 pg/mL High <300 [facility] Comment on above: Result Comment: Pro- BNP results cannot be compared to BNP results. Performed By: #### E RTPF, CONNER, LIP, LIVP, TEGCR ####[address] [address] CBCon 02-12-2018 Erythrocyte distribution width Auto Ratio (RBC) 16.7 % High 11.8-14.4 [facility] Comment on above: Performed By: #### E RTPF, CONNER, LIP, LIVP, TEGCR ####[address] [address] Hematocrit Auto Volume Fraction (Bld) 26.2 % Low 40.7-50.3 [facility] Comment on above: Performed By: #### E RTPF, CONNER, LIP, LIVP, TEGCR ####[address] [address] Hemoglobin mass conc (Bld) 8.4 g/dL Low 13.0-17.0 [facility] Comment on above: Performed By: #### E RTPF, CONNER, LIP, LIVP, TEGCR ####[address] [address] MCH Auto Entitic mass (RBC) 29.5 pg Normal 25.2-33.5 [facility] Comment on above: Performed By: #### E RTPF, CONNER, LIP, LIVP, TEGCR ####[address] [address] MCHC Auto mass conc (RBC) 32.1 g/dL Normal 28.4-34.8 [facility] Comment on above: Performed By: #### E RTPF, CONNER, LIP, LIVP, TEGCR ####[address] [address] MCV Auto Entitic volume (RBC) 91.9 fL Normal 82.6-102.9 [facility] Comment on above: Performed By: #### E RTPF, CONNER, LIP, LIVP, TEGCR ####[address] [address] NRBC Automated 0.3 per 100 WBC High 0.0 [facility] Comment on above: Performed By: #### E RTPF, CONNER, LIP, LIVP, TEGCR ####[address] [address] Platelet mean volume Auto Entitic volume (Bld) 11.8 fL Normal 8.1-13.5 [facility] Comment on above: Performed By: #### E RTPF, CONNER, LIP, LIVP, TEGCR ####[address] [address] Platelets Auto #/vol (Bld) 507 10*3/uL High 138-453 [facility] Comment on above: Performed By: #### E RTPF, CONNER, LIP, LIVP, TEGCR ####[address] [address] RBC Auto #/vol (Bld) 2.85 10*6/uL Low 4.21-5.77 [facility] Comment on above: Performed By: #### E RTPF, CONNER, LIP, LIVP, TEGCR ####[address] [address] WBC Auto #/vol (Bld) 25.9 10*3/uL High 3.5-11.3 [facility] Comment on above: Performed By: #### E RTPF, CONNER, LIP, LIVP, TEGCR ####[address] [address] Magnesiumon 02-12-2018 Magnesium mass conc 2.4 mg/dL Normal 1.6-2.6 [facility] Comment on above: Performed By: #### E RTPF, CONNER, LIP, LIVP, TEGCR ####[facility] [address] [place] [address] Phosphorus, Inorg.on 018 Phosphorus, Inorg. 5.1 mg/dL High 2.5-4.5 [facility] Comment on above: Performed By: #### E RTPF, CONNER, LIP, LIVP, TEGCR ####[facility] [address] [place] [address] XR CHEST PORTABLEon 02-13-20 18 XR CHEST [...] by:NADEGE Burksigned by:Fidel Marley MD02/12/18inal result Normal [facility] Basic Metabolic Profon 02-11 (cont.) Normal [facility] Comment on above: Result Comment: Aver age GFR for 50-59 years old: 93 mL/min/1.73sq mChronic Kidney Disease: <60 mL/min/1.73sq mKidney failure: <15 mL/min/1.73sq meGFR calculated using average adult body mass. Additional eGFR calculator available at:http://www.[employer].Peer5/multiple_crcl_2011.htm Performed By: #### E RTPF, CONNER, LIP, LIVP, TEGCR ####[facility] [address] [place] [address] Anion gap 3 molar conc 19 mmol/L High 9-17 [facility] Comment on above: Performed By: #### E RTPF, CONNER, LIP, LIVP, TEGCR ####[facility] [place] [address] Calcium mass conc 8.8 mg/dL Normal 8.6-10.4 [facility] Comment on above: Performed By: #### E RTPF, CONNER, LIP, LIVP, TEGCR ####[address] [place] [address] Chloride molar conc 101 mmol/L Normal 98-107 [facility] Comment on above: Performed By: #### E RTPF, CONNER, LIP, LIVP, TEGCR ####[address] [address] CO2 molar conc 17 mmol/L Low 20-31 [facility] Comment on above: Performed By: #### E RTPF, CONNER, LIP, LIVP, TEGCR ####[facility] [place] [address] Creatinine mass conc 2.91 mg/dL High 0.70-1.20 [facility] Comment on above: Performed By: #### E RTPF, CONNER, LIP, LIVP, TEGCR ####[facility] [address] [place] [address] GFR, Amer 27 mL/min Low >60 [facility] Comment on above: Performed By: #### E RTPF, CONNER, LIP, LIVP, TEGCR ####[facility] [address] [place] [address] GFR,non Amer 22 mL/min Low >60 [facility] Comment on above: Performed By: #### E RTPF, CONNER, LIP, LIVP, TEGCR ####[facility] [address] [place] [address] Glucose mass conc 140 mg/dL High 70-99 [facility] Comment on above: Performed By: #### E RTPF, CONNER, LIP, LIVP, TEGCR ####[facility] [address] [place] [address] Potassium molar conc 3.4 mmol/L Low 3.7-5.3 [facility] Comment on above: Performed By: #### E RTPF, CONNER, LIP, LIVP, TEGCR ####[facility] [address] [place] [address] Sodium molar conc 137 mmol/L Normal 135-144 [facility] Comment on above: Performed By: #### E RTPF, CONNER, LIP, LIVP, TEGCR ####[address] [place] [address] Urea nitrogen mass conc 75 mg/dL High 6-20 [facility] Comment on above: Performed By: #### E RTPF, CONNER, LIP, LIVP, TEGCR ####[facility] [place] [address] BUN/CRE Ratio NOT REPORTED Normal -20 [facility] Comment on above: Performed By: #### E RTPF, CONNER, LIP, LIVP, TEGCR ####[facility] [place] [address] Staging: NOT REPORTED Normal [facility] Comment on above: Performed By: #### E RTPF, CONNER, LIP, LIVP, TEGCR ####[facility] [place] [address] Brain Natri. Peptideon 02-11 Natriuretic peptide B mass conc (Bld) Normal [facility] Comment on above: Result Comment: Pro- BNP Reference Range:Rule Out: <300Grey Zone: Age <50 300-450 Age 50-75 300-900 Age >75 300-1800Usually represents mild to moderate HF but other cardiopulmonary causes cannot be ruled out.Rule In: Age <50 >450 Age 50-75 >900 Age >75 >1800 Performed By: #### E RTPF, CONNER, LIP, LIVP, TEGCR ####[address] [address] Natriuretic peptide B mass conc (Bld) 1407 pg/mL High <300 [facility] Comment on above: Result Comment: Pro- BNP results cannot be compared to BNP results. Performed By: #### E RTPF, CONNER, LIP, LIVP, TEGCR ####[address] [address] CBCon 02-11-2018 Erythrocyte distribution width Auto Ratio (RBC) 16.7 % High 11.8-14.4 [facility] Comment on above: Performed By: #### E RTPF, CONNER, LIP, LIVP, TEGCR ####[address] [address] Hematocrit Auto Volume Fraction (Bld) 28.4 % Low 40.7-50.3 [facility] Comment on above: Performed By: #### E RTPF, CONNER, LIP, LIVP, TEGCR ####[address] [address] Hemoglobin mass conc (Bld) 9.1 g/dL Low 13.0-17.0 [facility] Comment on above: Performed By: #### E RTPF, CONNER, LIP, LIVP, TEGCR ####[address] [address] MCH Auto Entitic mass (RBC) 29.3 pg Normal 25.2-33.5 [facility] Comment on above: Performed By: #### E RTPF, CONNER, LIP, LIVP, TEGCR ####[address] [address] MCHC Auto mass conc (RBC) 32.0 g/dL Normal 28.4-34.8 [facility] Comment on above: Performed By: #### E RTPF, CONNER, LIP, LIVP, TEGCR ####[address] [address] MCV Auto Entitic volume (RBC) 91.3 fL Normal 82.6-102.9 [facility] Comment on above: Performed By: #### E RTPF, CONNER, LIP, LIVP, TEGCR ####[address] [address] NRBC Automated 0.3 per 100 WBC High 0.0 [facility] Comment on above: Performed By: #### E RTPF, CONNER, LIP, LIVP, TEGCR ####[address] [address] Platelet mean volume Auto Entitic volume (Bld) 11.7 fL Normal 8.1-13.5 [facility] Comment on above: Performed By: #### E RTPF, CONNER, LIP, LIVP, TEGCR ####[address] [address] Platelets Auto #/vol (Bld) 466 10*3/uL High 138-453 [facility] Comment on above: Performed By: #### E RTPF, CONNER, LIP, LIVP, TEGCR ####[address] [address] RBC Auto #/vol (Bld) 3.11 10*6/uL Low 4.21-5.77 [facility] Comment on above: Performed By: #### E RTPF, CONNER, LIP, LIVP, TEGCR ####[address] [place] [address] WBC Auto #/vol (Bld) 24.8 10*3/uL High 3.5-11.3 [facility] Comment on above: Performed By: #### E RTPF, CONNER, LIP, LIVP, TEGCR ####[address] [address] Triglycerideson 02-11-2018 Triglyceride mass conc 202 mg/dL High <150 [facility] Comment on above: Result Comment: Trig lyceride Guidelines: <150 Desirable 150- 199 Borderline 200-499 High >499 Very high Based on AHA Guidelines for fasting triglyceride, February 2012. Performed By: #### E RTPF, CONNER, LIP, LIVP, TEGCR ####[address] [address] Basic Metabolic Profon 02-10 (cont.) Normal [facility] Comment on above: Result Comment: Aver age GFR for 50-59 years old: 93 mL/min/1.73sq mChronic Kidney Disease: <60 mL/min/1.73sq mKidney failure: <15 mL/min/1.73sq meGFR calculated using average adult body mass. Additional eGFR calculator available at:http://www.[employer].Peer5/multiple_crcl_2012.htm Performed By: #### E RTPF, CONNER, LIP, LIVP, TEGCR ####[address] [place] [address] Anion gap 3 molar conc 17 mmol/L Normal 9-17 [facility] Comment on above: Performed By: #### E RTPF, CONNER, LIP, LIVP, TEGCR ####[address] [place] [address] Calcium mass conc 9.0 mg/dL Normal 8.6-10.4 [facility] Comment on above: Performed By: #### E RTPF, CONNER, LIP, LIVP, TEGCR ####[facility] [place] [address] Chloride molar conc 106 mmol/L Normal 98-107 [facility] Comment on above: Performed By: #### E RTPF, CONNER, LIP, LIVP, TEGCR ####[address] [address] CO2 molar conc 19 mmol/L Low 20-31 [facility] Comment on above: Performed By: #### E RTPF, CONNER, LIP, LIVP, TEGCR ####[address] [address] Creatinine mass conc 3.02 mg/dL High 0.70-1.20 [facility] Comment on above: Performed By: #### E RTPF, CONNER, LIP, LIVP, TEGCR ####[address] [address] GFR, Amer 26 mL/min Low >60 [facility] Comment on above: Performed By: #### E RTPF, CONNER, LIP, LIVP, TEGCR ####[facility] [place] [address] GFR,non Amer 22 mL/min Low >60 [facility] Comment on above: Performed By: #### E RTPF, CONNER, LIP, LIVP, TEGCR ####[facility] [place] [address] Glucose mass conc 147 mg/dL High 70-99 [facility] Comment on above: Performed By: #### E RTPF, CONNER, LIP, LIVP, TEGCR ####[facility] [place] [address] Potassium molar conc 3.5 mmol/L Low 3.7-5.3 [facility] Comment on above: Performed By: #### E RTPF, CONNER, LIP, LIVP, TEGCR ####[address] [address] Sodium molar conc 142 mmol/L Normal 135-144 [facility] Comment on above: Performed By: #### E RTPF, CONNER, LIP, LIVP, TEGCR ####[address] [address] Urea nitrogen mass conc 71 mg/dL High - [facility] Comment on above: Performed By: #### E RTPF, CONNER, LIP, LIVP, TEGCR ####[address] [address] BUN/CRE Ratio NOT REPORTED Normal 01-21 [facility] Comment on above: Performed By: #### E RTPF, CONNER, LIP, LIVP, TEGCR ####[address] [address] Staging: NOT REPORTED Normal [facility] Comment on above: Performed By: #### E RTPF, CONNER, LIP, LIVP, TEGCR ####[address] [address] Brain Natri. Peptideon 02-10 Natriuretic peptide B mass conc (Bld) Normal [facility] Comment on above: Result Comment: Pro- BNP Reference Range:Rule Out: <300Grey Zone: Age <50 300-450 Age 50-75 300-900 Age >75 300-1800Usually represents mild to moderate HF but other cardiopulmonary causes cannot be ruled out.Rule In: Age <50 >450 Age 50-75 >900 Age >75 >1800 Performed By: #### E RTPF, CONNER, LIP, LIVP, TEGCR ####[address] [address] Natriuretic peptide B mass conc (Bld) 1392 pg/mL High <300 [facility] Comment on above: Result Comment: Pro- BNP results cannot be compared to BNP results. Performed By: #### E RTPF, CONNER, LIP, LIVP, TEGCR ####[address] [place] [address] CBCon 02-10-2018 Erythrocyte distribution width Auto Ratio (RBC) 17.3 % High 11.8-14.4 [facility] Comment on above: Performed By: #### E RTPF, CONNER, LIP, LIVP, TEGCR ####[address] [address] Hematocrit Auto Volume Fraction (Bld) 30.3 % Low 40.7-50.3 [facility] Comment on above: Performed By: #### E RTPF, CONNER, LIP, LIVP, TEGCR ####[address] [address] Hemoglobin mass conc (Bld) 9.1 g/dL Low 13.0-17.0 [facility] Comment on above: Performed By: #### E RTPF, CONNER, LIP, LIVP, TEGCR ####[address] [address] MCH Auto Entitic mass (RBC) 29.4 pg Normal 25.2-33.5 [facility] Comment on above: Performed By: #### E RTPF, CONNER, LIP, LIVP, TEGCR ####[address] [address] MCHC Auto mass conc (RBC) 30.0 g/dL Normal 28.4-34.8 [facility] Comment on above: Performed By: #### E RTPF, CONNER, LIP, LIVP, TEGCR ####[address] [address] MCV Auto Entitic volume (RBC) 98.1 fL Normal 82.6-102.9 [facility] Comment on above: Performed By: #### E RTPF, CONNER, LIP, LIVP, TEGCR ####[address] [address] NRBC Automated 0.4 per 100 WBC High 0.0 [facility] Comment on above: Performed By: #### E RTPF, CONNER, LIP, LIVP, TEGCR ####[address] [address] Platelet mean volume Auto Entitic volume (Bld) 11.5 fL Normal 8.1-13.5 [facility] Comment on above: Performed By: #### E RTPF, CONNER, LIP, LIVP, TEGCR ####[address] [address] Platelets Auto #/vol (Bld) 526 10*3/uL High 138-453 [facility] Comment on above: Performed By: #### E RTPF, CONNER, LIP, LIVP, TEGCR ####[address] [address] RBC Auto #/vol (Bld) 3.09 10*6/uL Low 4.21-5.77 [facility] Comment on above: Performed By: #### E RTPF, CONNER, LIP, LIVP, TEGCR ####[address] [address] WBC Auto #/vol (Bld) 24.5 10*3/uL High 3.5-11.3 [facility] Comment on above: Performed By: #### E RTPF, CONNER, LIP, LIVP, TEGCR ####[address] [address] Specimen Rejectionon 018 Reason for rejection Unable to perform t esting: Specimen hemolyzed. Normal [facility] Comment on above: Performed By: #### E RTPF, CONNER, LIP, LIVP, TEGCR ####[address] [address] Source of sample .BLOOD Normal [facility] Comment on above: Performed By: #### E RTPF, CONNER, LIP, LIVP, TEGCR ####[address] [address] Test ordered BMP Normal [facility] Comment on above: Performed By: #### E RTPF, CONNER, LIP, LIVP, TEGCR ####[address] [address] ----- NOT REPORTED [facility] Comment on above: Performed By: #### E RTPF, CONNER, LIP, LIVP, TEGCR ####[address] [id number] XR ABDOMEN (KUB) (SINGLE AP VIEW)on 02-10-2018 XR ABDOMEN (KUB) (SINGLE AP VIEW) EXAMINATION:SINGLE SUPINE XRAY VIEW(S) OF THE AOVUHPX4902/10/2018 2:04 pmCOMPARISON:None.HISTORY:ORD ERING SYSTEM PROVIDED HISTORY: s/p PEGTECHNOLOGIST PROVIDED HISTORY:With gastrografin to determine for leakPlease call [phone] for questions.Reason for exam:->s/p PEGFINDINGS:Diffuse bowel distention. A gastrostomy tube is present in the left upperquadrant. The balloon is inflated. Injected contrast opacifies the stomach.No extravasation of contrast.IMPRESSION: No extravasation of contrast.Interpreted by:NADEGE Lancasterigned by:Hebert Best MD02/10/18inal result Normal [facility] Basic Metabolic Profon 02-09 (cont.) Normal [facility] Comment on above: Result Comment: Aver age GFR for 50-59 years old: 93 mL/min/1.73sq mChronic Kidney Disease: <60 mL/min/1.73sq mKidney failure: <15 mL/min/1.73sq meGFR calculated using average adult body mass. Additional eGFR calculator available at:http://www.[employer]/multiple_crcl_2012.htm Performed By: #### E RTPF, CONNER, LIP, LIVP, TEGCR ####[facility] [address] [place] [address] Anion gap 3 molar conc 16 mmol/L Normal 9-17 [facility] Comment on above: Performed By: #### E RTPF, CONNER, LIP, LIVP, TEGCR ####[address] [place] [address] Calcium mass conc 8.3 mg/dL Low 8.6-10.4 [facility] Comment on above: Performed By: #### E RTPF, CONNER, LIP, LIVP, TEGCR ####[address] [place] [address] Chloride molar conc 109 mmol/L High 98-107 [facility] Comment on above: Performed By: #### E RTPF, CONNER, LIP, LIVP, TEGCR ####[address] [place] [address] CO2 molar conc 18 mmol/L Low 20-31 [facility] Comment on above: Performed By: #### E RTPF, CONNER, LIP, LIVP, TEGCR ####[facility] [place] [address] Creatinine mass conc 3.10 mg/dL High 0.70-1.20 [facility] Comment on above: Performed By: #### E RTPF, CONNER, LIP, LIVP, TEGCR ####[facility] [place] [address] GFR, Amer 25 mL/min Low >60 [facility] Comment on above: Performed By: #### E RTPF, CONNER, LIP, LIVP, TEGCR ####[address] [address] GFR,non Amer 21 mL/min Low >60 [facility] Comment on above: Performed By: #### E RTPF, CONNER, LIP, LIVP, TEGCR ####[address] [address] Glucose mass conc 135 mg/dL High 70-99 [facility] Comment on above: Performed By: #### E RTPF, CONNER, LIP, LIVP, TEGCR ####[address] [address] Potassium molar conc 4.0 mmol/L Normal 3.7-5.3 [facility] Comment on above: Performed By: #### E RTPF, CONNER, LIP, LIVP, TEGCR ####[address] [address] Sodium molar conc 143 mmol/L Normal 135-144 [facility] Comment on above: Performed By: #### E RTPF, CONNER, LIP, LIVP, TEGCR ####[facility] [place] [address] Urea nitrogen mass conc 67 mg/dL High 6-20 [facility] Comment on above: Performed By: #### E RTPF, CONNER, LIP, LIVP, TEGCR ####[address] [place] [address] BUN/CRE Ratio NOT REPORTED Normal 9-20 [facility] Comment on above: Performed By: #### E RTPF, CONNER, LIP, LIVP, TEGCR ####[address] [address] Staging: NOT REPORTED Normal [facility] Comment on above: Performed By: #### E RTPF, CONNER, LIP, LIVP, TEGCR ####[address] [address] Brain Natri. Peptideon 02-09 Natriuretic peptide B mass conc (Bld) Normal [facility] Comment on above: Result Comment: Pro- BNP Reference Range:Rule Out: <300Grey Zone: Age <50 300-450 Age 50-75 300-900 Age >75 300-1800Usually represents mild to moderate HF but other cardiopulmonary causes cannot be ruled out.Rule In: Age <50 >450 Age 50-75 >900 Age >75 >1800 Performed By: #### E RTPF, CONNER, LIP, LIVP, TEGCR ####[address] [address] Natriuretic peptide B mass conc (Bld) 1435 pg/mL High <300 [facility] Comment on above: Result Comment: Pro- BNP results cannot be compared to BNP results. Performed By: #### E RTPF, CONNER, LIP, LIVP, TEGCR ####[facility] [address] [place] [address] CBCon 02-09-2018 Erythrocyte distribution width Auto Ratio (RBC) 17.7 % High 11.8-14.4 [facility] Comment on above: Performed By: #### E RTPF, CONNER, LIP, LIVP, TEGCR ####[facility] [address] [place] [address] Hematocrit Auto Volume Fraction (Bld) 29.4 % Low 40.7-50.3 [facility] Comment on above: Performed By: #### E RTPF, CONNER, LIP, LIVP, TEGCR ####[facility] [address] [place] [address] Hemoglobin mass conc (Bld) 8.8 g/dL Low 13.0-17.0 [facility] Comment on above: Performed By: #### E RTPF, CONNER, LIP, LIVP, TEGCR ####[address] [address] MCH Auto Entitic mass (RBC) 29.2 pg Normal 25.2-33.5 [facility] Comment on above: Performed By: #### E RTPF, CONNER, LIP, LIVP, TEGCR ####[address] [address] MCHC Auto mass conc (RBC) 29.9 g/dL Normal 28.4-34.8 [facility] Comment on above: Performed By: #### E RTPF, CONNER, LIP, LIVP, TEGCR ####[address] [address] MCV Auto Entitic volume (RBC) 97.7 fL Normal 82.6-102.9 [facility] Comment on above: Performed By: #### E RTPF, CONNER, LIP, LIVP, TEGCR ####[address] [address] NRBC Automated 0.9 per 100 WBC High 0.0 [facility] Comment on above: Performed By: #### E RTPF, CONNER, LIP, LIVP, TEGCR ####[address] [address] Platelet mean volume Auto Entitic volume (Bld) 11.5 fL Normal 8.1-13.5 [facility] Comment on above: Performed By: #### E RTPF, CONNER, LIP, LIVP, TEGCR ####[address] [address] Platelets Auto #/vol (Bld) 458 10*3/uL High 138-453 [facility] Comment on above: Performed By: #### E RTPF, CONNER, LIP, LIVP, TEGCR ####[facility] [address] [place] [address] RBC Auto #/vol (Bld) 3.01 10*6/uL Low 4.21-5.77 [facility] Comment on above: Performed By: #### E RTPF, CONNER, LIP, LIVP, TEGCR ####[address] [place] [address] WBC Auto #/vol (Bld) 19.8 10*3/uL High 3.5-11.3 [facility] Comment on above: Performed By: #### E RTPF, CONNER, LIP, LIVP, TEGCR ####[address] [place] [address] Basic Metabolic Profon 02-08 (cont.) Normal [facility] Comment on above: Result Comment: Aver age GFR for 50-59 years old: 93 mL/min/1.73sq mChronic Kidney Disease: <60 mL/min/1.73sq mKidney failure: <15 mL/min/1.73sq meGFR calculated using average adult body mass. Additional eGFR calculator available at:http://www.[employer]/multiple_crcl_2012.htm Performed By: #### E RTPF, CONNER, LIP, LIVP, TEGCR ####[address] [place], [place] [id number] Anion gap 3 molar conc 13 mmol/L Normal 9-17 [facility] Comment on above: Performed By: #### E RTPF, CONNER, LIP, LIVP, TEGCR ####[facility] [place], [place] [address] Calcium mass conc 8.3 mg/dL Low 8.6-10.4 [facility] Comment on above: Performed By: #### E RTPF, CONNER, LIP, LIVP, TEGCR ####[address] [place] [address] Chloride molar conc 110 mmol/L High 98-107 [facility] Comment on above: Performed By: #### E RTPF, CONNER, LIP, LIVP, TEGCR ####[address] [address] CO2 molar conc 17 mmol/L Low 20-31 [facility] Comment on above: Performed By: #### E RTPF, CONNER, LIP, LIVP, TEGCR ####[address] [address] Creatinine mass conc 3.39 mg/dL High 0.70-1.20 [facility] Comment on above: Performed By: #### E RTPF, CONNER, LIP, LIVP, TEGCR ####[address] [address] GFR, Amer 23 mL/min Low >60 [facility] Comment on above: Performed By: #### E RTPF, CNONER, LIP, LIVP, TEGCR ####[address] [address] GFR,non Amer 19 mL/min Low >60 [facility] Comment on above: Performed By: #### E RTPF, CONNER, LIP, LIVP, TEGCR ####[address] [address] Glucose mass conc 136 mg/dL High 70-99 [facility] Comment on above: Performed By: #### E RTPF, CONNER, LIP, LIVP, TEGCR ####[address] [address] Potassium molar conc 4.3 mmol/L Normal 3.7-5.3 [facility] Comment on above: Performed By: #### E RTPF, CONNER, LIP, LIVP, TEGCR ####[facility] [address] [place] [address] Sodium molar conc 140 mmol/L Normal 135-144 [facility] Comment on above: Performed By: #### E RTPF, CONNER, LIP, LIVP, TEGCR ####[facility] [place] [address] Urea nitrogen mass conc 68 mg/dL High -20 [facility] Comment on above: Performed By: #### E RTPF, CONNER, LIP, LIVP, TEGCR ####[address] [place] [address] BUN/CRE Ratio NOT REPORTED Normal - [facility] Comment on above: Performed By: #### E RTPF, CONNER, LIP, LIVP, TEGCR ####[address] [address] Staging: NOT REPORTED Normal [facility] Comment on above: Performed By: #### E RTPF, CONNER, LIP, LIVP, TEGCR ####[address] [address] Brain Natri. Peptideon 02-08 Natriuretic peptide B mass conc (Bld) Normal [facility] Comment on above: Result Comment: Pro- BNP Reference Range:Rule Out: <300Grey Zone: Age <50 300-450 Age 50-75 300-900 Age >75 300-1800Usually represents mild to moderate HF but other cardiopulmonary causes cannot be ruled out.Rule In: Age <50 >450 Age 50-75 >900 Age >75 >1800 Performed By: #### E RTPF, CONNER, LIP, LIVP, TEGCR ####[facility] [place] [address] Natriuretic peptide B mass conc (Bld) 1933 pg/mL High <300 [facility] Comment on above: Result Comment: Pro- BNP results cannot be compared to BNP results. Performed By: #### E RTPF, CONNER, LIP, LIVP, TEGCR ####[address] [address] CBCon 02-08-2018 Erythrocyte distribution width Auto Ratio (RBC) 18.3 % High 11.8-14.4 [facility] Comment on above: Performed By: #### E RTPF, CONNER, LIP, LIVP, TEGCR ####[address] [address] Hematocrit Auto Volume Fraction (Bld) 26.2 % Low 40.7-50.3 [facility] Comment on above: Performed By: #### E RTPF, CONNER, LIP, LIVP, TEGCR ####[address] [address] Hemoglobin mass conc (Bld) 8.0 g/dL Low 13.0-17.0 [facility] Comment on above: Performed By: #### E RTPF, CONNER, LIP, LIVP, TEGCR ####[address] [address] MCH Auto Entitic mass (RBC) 29.6 pg Normal 25.2-33.5 [facility] Comment on above: Performed By: #### E RTPF, CONNER, LIP, LIVP, TEGCR ####[address] [address] MCHC Auto mass conc (RBC) 30.5 g/dL Normal 28.4-34.8 [facility] Comment on above: Performed By: #### E RTPF, CONNER, LIP, LIVP, TEGCR ####[address] [address] MCV Auto Entitic volume (RBC) 97.0 fL Normal 82.6-102.9 [facility] Comment on above: Performed By: #### E RTPF, CONNER, LIP, LIVP, TEGCR ####[address] [address] NRBC Automated 1.2 per 100 WBC High 0.0 [facility] Comment on above: Performed By: #### E RTPF, CONNER, LIP, LIVP, TEGCR ####[address] [address] Platelet mean volume Auto Entitic volume (Bld) 12.1 fL Normal 8.1-13.5 [facility] Comment on above: Performed By: #### E RTPF, CONNER, LIP, LIVP, TEGCR ####[address] [address] Platelets Auto #/vol (Bld) 373 10*3/uL Normal 138-453 [facility] Comment on above: Performed By: #### E RTPF, CONNER, LIP, LIVP, TEGCR ####[address] [address] RBC Auto #/vol (Bld) 2.70 10*6/uL Low 4.21-5.77 [facility] Comment on above: Performed By: #### E RTPF, CONNER, LIP, LIVP, TEGCR ####[address] [address] WBC Auto #/vol (Bld) 23.8 10*3/uL High 3.5-11.3 [facility] Comment on above: Performed By: #### E RTPF, CONNER, LIP, LIVP, TEGCR ####[address] [address] Magnesiumon 02-08-2018 Magnesium mass conc 2.4 mg/dL Normal 1.6-2.6 [facility] Comment on above: Performed By: #### E RTPF, CONNER, LIP, LIVP, TEGCR ####[address] [place] [address] Phosphorus, Inorg.on 018 Phosphorus, Inorg. 5.7 mg/dL High 2.5-4.5 [facility] Comment on above: Performed By: #### E RTPF, CONNER, LIP, LIVP, TEGCR ####[address] [address] Basic Metabolic Profon 02-07 (cont.) Normal [facility] Comment on above: Result Comment: Aver age GFR for 50-59 years old: 93 mL/min/1.73sq mChronic Kidney Disease: <60 mL/min/1.73sq mKidney failure: <15 mL/min/1.73sq meGFR calculated using average adult body mass. Additional eGFR calculator available at:http://www.Border[employer]/multiple_crcl_2012.htm Performed By: #### E RTPF, CONNER, LIP, LIVP, TEGCR ####[address] [address] Anion gap 3 molar conc 11 mmol/L Normal 9-17 [facility] Comment on above: Performed By: #### E RTPF, CONNER, LIP, LIVP, TEGCR ####[address] [address] Calcium mass conc 8.3 mg/dL Low 8.6-10.4 [facility] Comment on above: Performed By: #### E RTPF, CONNER, LIP, LIVP, TEGCR ####[address] [place] [address] Chloride molar conc 112 mmol/L High 98-107 [facility] Comment on above: Performed By: #### E RTPF, CONNER, LIP, LIVP, TEGCR ####[address] [place] [address] CO2 molar conc 16 mmol/L Low 20-31 [facility] Comment on above: Performed By: #### E RTPF, CONNER, LIP, LIVP, TEGCR ####[facility] [place] [address] Creatinine mass conc 3.99 mg/dL High 0.70-1.20 [facility] Comment on above: Performed By: #### E RTPF, CONNER, LIP, LIVP, TEGCR ####[address] [address] GFR, Amer 19 mL/min Low >60 [facility] Comment on above: Performed By: #### E RTPF, CONNER, LIP, LIVP, TEGCR ####[address] [address] GFR,non Amer 16 mL/min Low >60 [facility] Comment on above: Performed By: #### E RTPF, CONNER, LIP, LIVP, TEGCR ####[address] [address] Glucose mass conc 127 mg/dL High 70-99 [facility] Comment on above: Performed By: #### E RTPF, CONNER, LIP, LIVP, TEGCR ####[facility] [place] [address] Potassium molar conc 4.6 mmol/L Normal 3.7-5.3 [facility] Comment on above: Performed By: #### E RTPF, CONNER, LIP, LIVP, TEGCR ####[facility] [place] [address] Sodium molar conc 139 mmol/L Normal 135-144 [facility] Comment on above: Performed By: #### E RTPF, CONNER, LIP, LIVP, TEGCR ####[facility] [address] [place] [address] Urea nitrogen mass conc 71 mg/dL High 6-20 [facility] Comment on above: Performed By: #### E RTPF, CONNER, LIP, LIVP, TEGCR ####[address] [place] [address] BUN/CRE Ratio NOT REPORTED Normal - [facility] Comment on above: Performed By: #### E RTPF, CONNER, LIP, LIVP, TEGCR ####[address] [place] [address] Staging: NOT REPORTED Normal [facility] Comment on above: Performed By: #### E RTPF, CONNER, LIP, LIVP, TEGCR ####[address] [address] Brain Natri. Peptideon 02-07 Natriuretic peptide B mass conc (Bld) 1696 pg/mL High <300 [facility] Comment on above: Result Comment: Pro- BNP results cannot be compared to BNP results. Performed By: #### E RTPF, CONNER, LIP, LIVP, TEGCR ####[address] [address] Natriuretic peptide B mass conc (Bld) Normal [facility] Comment on above: Result Comment: Pro- BNP Reference Range:Rule Out: <300Grey Zone: Age <50 300-450 Age 50-75 300-900 Age >75 300-1800Usually represents mild to moderate HF but other cardiopulmonary causes cannot be ruled out.Rule In: Age <50 >450 Age 50-75 >900 Age >75 >1800 Performed By: #### E RTPF, CONNER, LIP, LIVP, TEGCR ####[address] [address] CBCon 02-07-2018 Erythrocyte distribution width Auto Ratio (RBC) 18.5 % High 11.8-14.4 [facility] Comment on above: Performed By: #### E RTPF, CONNER, LIP, LIVP, TEGCR ####[address] [address] Hematocrit Auto Volume Fraction (Bld) 23.5 % Low 40.7-50.3 [facility] Comment on above: Performed By: #### E RTPF, CONNER, LIP, LIVP, TEGCR ####[address] [address] Hemoglobin mass conc (Bld) 7.4 g/dL Low 13.0-17.0 [facility] Comment on above: Performed By: #### E RTPF, CONNER, LIP, LIVP, TEGCR ####[address] [address] MCH Auto Entitic mass (RBC) 30.1 pg Normal 25.2-33.5 [facility] Comment on above: Performed By: #### E RTPF, CONNER, LIP, LIVP, TEGCR ####[address] [address] MCHC Auto mass conc (RBC) 31.5 g/dL Normal 28.4-34.8 [facility] Comment on above: Performed By: #### E RTPF, CONNER, LIP, LIVP, TEGCR ####[address] [address] MCV Auto Entitic volume (RBC) 95.5 fL Normal 82.6-102.9 [facility] Comment on above: Performed By: #### E RTPF, CONNER, LIP, LIVP, TEGCR ####[address] [address] NRBC Automated 1.5 per 100 WBC High 0.0 [facility] Comment on above: Performed By: #### E RTPF, CONNER, LIP, LIVP, TEGCR ####[address] [address] Platelet mean volume Auto Entitic volume (Bld) 11.7 fL Normal 8.1-13.5 [facility] Comment on above: Performed By: #### E RTPF, CONNER, LIP, LIVP, TEGCR ####[address] [address] Platelets Auto #/vol (Bld) 406 10*3/uL Normal 138-453 [facility] Comment on above: Performed By: #### E RTPF, CONNER, LIP, LIVP, TEGCR ####[address] [address] RBC Auto #/vol (Bld) 2.46 10*6/uL Low 4.21-5.77 [facility] Comment on above: Performed By: #### E RTPF, CONNER, LIP, LIVP, TEGCR ####[address] [address] WBC Auto #/vol (Bld) 24.8 10*3/uL High 3.5-11.3 [facility] Comment on above: Performed By: #### E RTPF, CONNER, LIP, LIVP, TEGCR ####[address] [address] Hgb/Hcton 02-07-2018 Hematocrit Auto Volume Fraction (Bld) 23.9 % Low 40.7-50.3 [facility] Comment on above: Performed By: #### E RTPF, CONNER, LIP, LIVP, TEGCR ####[address] [address] Hemoglobin mass conc (Bld) 7.5 g/dL Low 13.0-17.0 [facility] Comment on above: Performed By: #### E RTPF, CONNER, LIP, LIVP, TEGCR ####[facility] [address] [place] [address] [id number] XR CHEST (SINGLE VIEW FRONTA L)on 02-07-2018 [...] by:NADEGE Lancasterigned by:Hebert Best MD02/07/18inal result Normal [facility] Amylaseon 02-06-2018 Amylase enzyme act/vol 167 U/L High 28-100 [facility] Comment on above: Performed By: #### E RTPF, CONNER, LIP, LIVP, TEGCR ####[address] [address] Basic Metabolic Profon 02-06 Anion gap 3 molar conc 15 mmol/L Normal 9-17 [facility] Comment on above: Performed By: #### E RTPF, CONNER, LIP, LIVP, TEGCR ####[facility] [address] [place] [id number] Chloride molar conc 112 mmol/L High 98-107 [facility] Comment on above: Performed By: #### E RTPF, CONNER, LIP, LIVP, TEGCR ####[address] 8[address] Potassium molar conc 4.5 mmol/L Normal 3.7-5.3 [facility] Comment on above: Performed By: #### E RTPF, CONNER, LIP, LIVP, TEGCR ####[facility] [place] [address] Sodium molar conc 143 mmol/L Normal 135-144 [facility] Comment on above: Performed By: #### E RTPF, CONNER, LIP, LIVP, TEGCR ####[address] [place] [address] (cont.) Normal [facility] Comment on above: Result Comment: Aver age GFR for 50-59 years old: 93 mL/min/1.73sq mChronic Kidney Disease: <60 mL/min/1.73sq mKidney failure: <15 mL/min/1.73sq meGFR calculated using average adult body mass. Additional eGFR calculator available at:http://www.Borderfree/multiple_crcl_2012.htm Performed By: #### E RTPF, CONNER, LIP, LIVP, TEGCR ####[address] [address] Calcium mass conc 8.0 mg/dL Low 8.6-10.4 [facility] Comment on above: Performed By: #### E RTPF, CONNER, LIP, LIVP, TEGCR ####[address] [place] [address] CO2 molar conc 16 mmol/L Low 20-31 [facility] Comment on above: Performed By: #### E RTPF, CONNER, LIP, LIVP, TEGCR ####[facility] [place] [address] Creatinine mass conc 4.02 mg/dL High 0.70-1.20 [facility] Comment on above: Performed By: #### E RTPF, CONNER, LIP, LIVP, TEGCR ####[facility] [place] [address] GFR, Amer 19 mL/min Low >60 [facility] Comment on above: Performed By: #### E RTPF, CONNER, LIP, LIVP, TEGCR ####[facility] [address] [place] [address] GFR,non Amer 15 mL/min Low >60 [facility] Comment on above: Performed By: #### E RTPF, CONNER, LIP, LIVP, TEGCR ####[facility] [place] [address] Glucose mass conc 131 mg/dL High 70-99 [facility] Comment on above: Performed By: #### E RTPF, CONNER, LIP, LIVP, TEGCR ####[facility] [place] [address] Urea nitrogen mass conc 72 mg/dL High 6-20 [facility] Comment on above: Performed By: #### E RTPF, CONNER, LIP, LIVP, TEGCR ####[facility] [place] [address] BUN/CRE Ratio NOT REPORTED Normal 9-20 [facility] Comment on above: Performed By: #### E RTPF, CONNER, LIP, LIVP, TEGCR ####[facility] [place] [address] Staging: NOT REPORTED Normal [facility] Comment on above: Performed By: #### E RTPF, CONNER, LIP, LIVP, TEGCR ####[facility] [address] [place] [address] Brain Natri. Peptideon 02-06 Natriuretic peptide B mass conc (Bld) Normal [facility] Comment on above: Result Comment: Pro- BNP Reference Range:Rule Out: <300Grey Zone: Age <50 300-450 Age 50-75 300-900 Age >75 300-1800Usually represents mild to moderate HF but other cardiopulmonary causes cannot be ruled out.Rule In: Age <50 >450 Age 50-75 >900 Age >75 >1800 Performed By: #### E RTPF, CONNER, LIP, LIVP, TEGCR ####[address] [place] [address] Natriuretic peptide B mass conc (Bld) 2505 pg/mL High <300 [facility] Comment on above: Result Comment: Pro- BNP results cannot be compared to BNP results. Performed By: #### E RTPF, CONNER, LIP, LIVP, TEGCR ####[address] [address] CBCon 02-06-2018 Erythrocyte distribution width Auto Ratio (RBC) 20.3 % High 11.8-14.4 [facility] Comment on above: Performed By: #### E RTPF, CONNER, LIP, LIVP, TEGCR ####[address] [address] Hematocrit Auto Volume Fraction (Bld) 22.9 % Low 40.7-50.3 [facility] Comment on above: Performed By: #### E RTPF, CONNER, LIP, LIVP, TEGCR ####[address] [address] Hemoglobin mass conc (Bld) 6.9 g/dL Critically low 13.0-17.0 [facility] Comment on above: Performed By: #### E RTPF, CONNER, LIP, LIVP, TEGCR ####[address] [place] [address] MCH Auto Entitic mass (RBC) 29.2 pg Normal 25.2-33.5 [facility] Comment on above: Performed By: #### E RTPF, CONNER, LIP, LIVP, TEGCR ####[address] [place] [address] MCHC Auto mass conc (RBC) 30.1 g/dL Normal 28.4-34.8 [facility] Comment on above: Performed By: #### E RTPF, CONNER, LIP, LIVP, TEGCR ####[address] [address] MCV Auto Entitic volume (RBC) 97.0 fL Normal 82.6-102.9 [facility] Comment on above: Performed By: #### E RTPF, CONNER, LIP, LIVP, TEGCR ####[address] [address] NRBC Automated 1.8 per 100 WBC High 0.0 [facility] Comment on above: Performed By: #### E RTPF, CONNER, LIP, LIVP, TEGCR ####[address] [address] Platelet mean volume Auto Entitic volume (Bld) 11.9 fL Normal 8.1-13.5 [facility] Comment on above: Performed By: #### E RTPF, CONNER, LIP, LIVP, TEGCR ####[address] [address] Platelets Auto #/vol (Bld) 399 10*3/uL Normal 138-453 [facility] Comment on above: Performed By: #### E RTPF, CONNER, LIP, LIVP, TEGCR ####[address] [address] RBC Auto #/vol (Bld) 2.36 10*6/uL Low 4.21-5.77 [facility] Comment on above: Performed By: #### E RTPF, CONNER, LIP, LIVP, TEGCR ####[address] [address] WBC Auto #/vol (Bld) 25.6 10*3/uL High 3.5-11.3 [facility] Comment on above: Performed By: #### E RTPF, CONNER, LIP, LIVP, TEGCR ####[address] [address] Creatine Kinaseon 02-06-2018 CK enzyme act/vol 456 U/L High 39-308 [facility] Comment on above: Performed By: #### E RTPF, CONNER, LIP, LIVP, TEGCR ####[address] [address] Lactic Acid,Whole Blon 02-06 Lactic Acid,Whole Bl 0.7 mmol/L Normal 0.7-2.1 [facility] Comment on above: Performed By: #### E RTPF, CONNER, LIP, LIVP, TEGCR ####[address] [address] Lactic Acid,Whole Bl 0.8 mmol/L Normal 0.7-2.1 [facility] Comment on above: Performed By: #### E RTPF, CONNER, LIP, LIVP, TEGCR ####[address] [address] Lipaseon 02-06-2018 Lipase enzyme act/vol 51 U/L Normal 13-60 [facility] Comment on above: Performed By: #### E RTPF, CONNER, LIP, LIVP, TEGCR ####[address] [address] Myoglobinon 02-06-2018 Myoglobin mass conc 471 ng/mL High 28-72 [facility] Comment on above: Performed By: #### E RTPF, CONNER, LIP, LIVP, TEGCR ####[address] [place] [address] Basic Metabolic Profon 02-05 (cont.) Normal [facility] Comment on above: Result Comment: Aver age GFR for 50-59 years old: 93 mL/min/1.73sq mChronic Kidney Disease: <60 mL/min/1.73sq mKidney failure: <15 mL/min/1.73sq meGFR calculated using average adult body mass. Additional eGFR calculator available at:http://www.Borderfree/multiple_crcl_2012.htm Performed By: #### E RTPF, CONNER, LIP, LIVP, TEGCR ####[facility] [address] [place] [address] Anion gap 3 molar conc 12 mmol/L Normal 9-17 [facility] Comment on above: Performed By: #### E RTPF, CONNER, LIP, LIVP, TEGCR ####[facility] [address] [place] [address] Calcium mass conc 7.6 mg/dL Low 8.6-10.4 [facility] Comment on above: Performed By: #### E RTPF, CONNER, LIP, LIVP, TEGCR ####[address] [place] [address] Chloride molar conc 110 mmol/L High 98-107 [facility] Comment on above: Performed By: #### E RTPF, CONNER, LIP, LIVP, TEGCR ####[address] [address] CO2 molar conc 16 mmol/L Low 20-31 [facility] Comment on above: Performed By: #### E RTPF, CONNER, LIP, LIVP, TEGCR ####[facility] [place] [address] Creatinine mass conc 3.63 mg/dL High 0.70-1.20 [facility] Comment on above: Performed By: #### E RTPF, CONNER, LIP, LIVP, TEGCR ####[facility] [address] [place] [address] GFR, Amer 21 mL/min Low >60 [facility] Comment on above: Performed By: #### E RTPF, CONNER, LIP, LIVP, TEGCR ####[facility] [place] [address] GFR,non Amer 17 mL/min Low >60 [facility] Comment on above: Performed By: #### E RTPF, CONNER, LIP, LIVP, TEGCR ####[facility] [address] [place] [address] Glucose mass conc 132 mg/dL High 70-99 [facility] Comment on above: Performed By: #### E RTPF, CONNER, LIP, LIVP, TEGCR ####[address] [place] [address] Potassium molar conc 4.1 mmol/L Normal 3.7-5.3 [facility] Comment on above: Performed By: #### E RTPF, CONNER, LIP, LIVP, TEGCR ####[facility] [place] [address] Sodium molar conc 138 mmol/L Normal 135-144 [facility] Comment on above: Performed By: #### E RTPF, CONNER, LIP, LIVP, TEGCR ####[facility] [address] [place] [address] Urea nitrogen mass conc 69 mg/dL High 6-20 [facility] Comment on above: Performed By: #### E RTPF, CONNER, LIP, LIVP, TEGCR ####[address] [place] [address] BUN/CRE Ratio NOT REPORTED Normal 9-20 [facility] Comment on above: Performed By: #### E RTPF, CONNER, LIP, LIVP, TEGCR ####[address] [address] Staging: NOT REPORTED Normal [facility] Comment on above: Performed By: #### E RTPF, CONNER, LIP, LIVP, TEGCR ####[address] [place] [address] Calcium mass conc 7.6 mg/dL Low 8.6-10.4 [facility] Comment on above: Performed By: #### E RTPF, CONNER, LIP, LIVP, TEGCR ####[facility] [address] [place] [address] Urea nitrogen mass conc 72 mg/dL High 6-20 [facility] Comment on above: Performed By: #### E RTPF, CONNER, LIP, LIVP, TEGCR ####[address] [address] Creatinine mass conc 3.70 mg/dL High 0.70-1.20 [facility] Comment on above: Performed By: #### E RTPF, CONNER, LIP, LIVP, TEGCR ####[address] [place] [address] GFR, Amer 21 mL/min Low >60 [facility] Comment on above: Performed By: #### E RTPF, CONNER, LIP, LIVP, TEGCR ####[address] [address] GFR,non Amer 17 mL/min Low >60 [facility] Comment on above: Performed By: #### E RTPF, CONNER, LIP, LIVP, TEGCR ####[address] [address] (cont.) Normal [facility] Comment on above: Result Comment: Aver age GFR for 50-59 years old: 93 mL/min/1.73sq mChronic Kidney Disease: <60 mL/min/1.73sq mKidney failure: <15 mL/min/1.73sq meGFR calculated using average adult body mass. Additional eGFR calculator available at:http://www.[employer].Peer[employer]/multiple_crcl_2012.htm Performed By: #### E RTPF, CONNER, LIP, LIVP, TEGCR ####[facility] [place] [address] Anion gap 3 molar conc 11 mmol/L Normal 9-17 [facility] Comment on above: Performed By: #### E RTPF, CONNER, LIP, LIVP, TEGCR ####[facility] [place] [address] Chloride molar conc 110 mmol/L High 98-107 [facility] Comment on above: Performed By: #### E RTPF, CONNER, LIP, LIVP, TEGCR ####[address] [address] CO2 molar conc 17 mmol/L Low 20-31 [facility] Comment on above: Performed By: #### E RTPF, CONNER, LIP, LIVP, TEGCR ####[facility] [place] [address] Glucose mass conc 159 mg/dL High 70-99 [facility] Comment on above: Performed By: #### E RTPF, CONNER, LIP, LIVP, TEGCR ####[facility] [address] [place] [address] Potassium molar conc 4.3 mmol/L Normal 3.7-5.3 [facility] Comment on above: Performed By: #### E RTPF, CONNER, LIP, LIVP, TEGCR ####[address] [place] [address] Sodium molar conc 138 mmol/L Normal 135-144 [facility] Comment on above: Performed By: #### E RTPF, CONNER, LIP, LIVP, TEGCR ####[facility] [address] [place] [address] BUN/CRE Ratio NOT REPORTED Normal -20 [facility] Comment on above: Performed By: #### E RTPF, CONNER, LIP, LIVP, TEGCR ####[address] [place] [address] Staging: NOT REPORTED Normal [facility] Comment on above: Performed By: #### E RTPF, CONNER, LIP, LIVP, TEGCR ####[address] [place] [address] (cont.) Normal [facility] Comment on above: Result Comment: Aver age GFR for 50-59 years old: 93 mL/min/1.73sq mChronic Kidney Disease: <60 mL/min/1.73sq mKidney failure: <15 mL/min/1.73sq meGFR calculated using average adult body mass. Additional eGFR calculator available at:http://www.[employer].Peer5/multiple_crcl_2012.htm Performed By: #### E RTPF, CONNER, LIP, LIVP, TEGCR ####[address] [place] [address] Anion gap 3 molar conc 14 mmol/L Normal -17 [facility] Comment on above: Performed By: #### E RTPF, CONNER, LIP, LIVP, TEGCR ####[facility] [address] [place] [address] Calcium mass conc 7.6 mg/dL Low 8.6-10.4 [facility] Comment on above: Performed By: #### E RTPF, CONNER, LIP, LIVP, TEGCR ####[facility] [place] [address] Chloride molar conc 113 mmol/L High 98-107 [facility] Comment on above: Performed By: #### E RTPF, CONNER, LIP, LIVP, TEGCR ####[facility] [place] [address] CO2 molar conc 18 mmol/L Low 20-31 [facility] Comment on above: Performed By: #### E RTPF, CONNER, LIP, LIVP, TEGCR ####[address] [place] [address] Creatinine mass conc 3.53 mg/dL High 0.70-1.20 [facility] Comment on above: Performed By: #### E RTPF, CONNER, LIP, LIVP, TEGCR ####[address] [address] GFR, Amer 22 mL/min Low >60 [facility] Comment on above: Performed By: #### E RTPF, CONNER, LIP, LIVP, TEGCR ####[address] [address] GFR,non Amer 18 mL/min Low >60 [facility] Comment on above: Performed By: #### E RTPF, CONNER, LIP, LIVP, TEGCR ####[address] [place] [address] Glucose mass conc 133 mg/dL High 70-99 [facility] Comment on above: Performed By: #### E RTPF, CONNER, LIP, LIVP, TEGCR ####[facility] [place] [address] Potassium molar conc 4.3 mmol/L Normal 3.7-5.3 [facility] Comment on above: Performed By: #### E RTPF, CONNER, LIP, LIVP, TEGCR ####[facility] [place] [address] Sodium molar conc 145 mmol/L High 135-144 [facility] Comment on above: Performed By: #### E RTPF, CONNER, LIP, LIVP, TEGCR ####[address] [place] [address] Urea nitrogen mass conc 66 mg/dL High 6-20 [facility] Comment on above: Performed By: #### E RTPF, CONNER, LIP, LIVP, TEGCR ####[address] [address] Blood Bank Specimenon 2017 Blood Bank Specimen NOT REPORTED Normal [facility] CBCon 02-05-2018 Erythrocyte distribution width Auto Ratio (RBC) 18.7 % High 11.8-14.4 [facility] Comment on above: Performed By: #### E RTPF, CONNER, LIP, LIVP, TEGCR ####[address] [address] Hematocrit Auto Volume Fraction (Bld) 18.8 % Low 40.7-50.3 [facility] Comment on above: Performed By: #### E RTPF, CONNER, LIP, LIVP, TEGCR ####[address] [address] Hemoglobin mass conc (Bld) 5.5 g/dL Critically low 13.0-17.0 [facility] Comment on above: Performed By: #### E RTPF, CONNER, LIP, LIVP, TEGCR ####[address] [place] [address] MCH Auto Entitic mass (RBC) 30.6 pg Normal 25.2-33.5 [facility] Comment on above: Performed By: #### E RTPF, CONNER, LIP, LIVP, TEGCR ####[address] [place] [address] MCHC Auto mass conc (RBC) 29.3 g/dL Normal 28.4-34.8 [facility] Comment on above: Performed By: #### E RTPF, CONNER, LIP, LIVP, TEGCR ####[address] [address] MCV Auto Entitic volume (RBC) 104.4 fL High 82.6-102.9 [facility] Comment on above: Performed By: #### E RTPF, CONNER, LIP, LIVP, TEGCR ####[address] [address] NRBC Automated 1.3 per 100 WBC High 0.0 [facility] Comment on above: Performed By: #### E RTPF, CONNER, LIP, LIVP, TEGCR ####[address] [address] Platelet mean volume Auto Entitic volume (Bld) 12.0 fL Normal 8.1-13.5 [facility] Comment on above: Performed By: #### E RTPF, CONNER, LIP, LIVP, TEGCR ####[address] [address] Platelets Auto #/vol (Bld) 421 10*3/uL Normal 138-453 [facility] Comment on above: Performed By: #### E RTPF, CONNER, LIP, LIVP, TEGCR ####[address] [address] RBC Auto #/vol (Bld) 1.80 10*6/uL Low 4.21-5.77 [facility] Comment on above: Performed By: #### E RTPF, CONNER, LIP, LIVP, TEGCR ####[address] [address] WBC Auto #/vol (Bld) 28.9 10*3/uL High 3.5-11.3 [facility] Comment on above: Performed By: #### E RTPF, CONNER, LIP, LIVP, TEGCR ####[address] [address] Cult,Bloodon 02-05-2018 Cult,Blood Specimen Description .BLOOD Special Requests RT ARM 2ML Culture NO GROWTH 6 DAYS Report Status FINAL 02/05/2018 Normal [facility] Comment on above: Performed By: #### E RTPF, OCNNER, LIP, LIVP, TEGCR ####[address] [address] Cult,Blood Specimen Description .BLOOD Special Requests RT ARM 5ML Culture NO GROWTH 6 DAYS Report Status FINAL 02/05/2018 [facility] Comment on above: Performed By: #### E RTPF, CONNER, LIP, LIVP, TEGCR ####[address] [address] Hgb/Hcton 02-05-2018 Hematocrit Auto Volume Fraction (Bld) 22.9 % Low 40.7-50.3 [facility] Comment on above: Performed By: #### E RTPF, CONNER, LIP, LIVP, TEGCR ####[address] [address] Hemoglobin mass conc (Bld) 6.9 g/dL Critically low 13.0-17.0 [facility] Comment on above: Performed By: #### E RTPF, CONNER, LIP, LIVP, TEGCR ####[address] [address] TEG, Rapid Citratedon 2017 ACT TEG 89.0 sec Normal 86-118 [facility] Comment on above: Performed By: #### E RTPF, CONNER, LIP, LIVP, TEGCR ####[address] [address] Angle, Rapid TEG 81.8 deg High 64-80 [facility] Comment on above: Performed By: #### E RTPF, CONNER, LIP, LIVP, TEGCR ####[address] [address] EPL TEG 2.0 % Normal 0.0-15.0 [facility] Comment on above: Performed By: #### E RTPF, CONNER, LIP, LIVP, TEGCR ####[address] [address] Heparin Therapy: None Normal [facility] Comment on above: Performed By: #### E RTPF, CONNER, LIP, LIVP, TEGCR ####[address] [address] K (Kinetics) rTEG 0.8 min Low 1.0-2.0 [facility] Comment on above: Performed By: #### E RTPF, CONNER, LIP, LIVP, TEGCR ####[address] [address] LY30 (Lysis) TEG 2.0 % Normal 0-8 [facility] Comment on above: Performed By: #### E RTPF, CONNER, LIP, LIVP, TEGCR ####[address] [address] MA Rapid TEG 81.9 mm High 52-71 [facility] Comment on above: Performed By: #### E RTPF, CONNER, LIP, LIVP, TEGCR ####[address] [address] R(Reaction Time)rTEG 0.4 min Normal 0.0-1.0 [facility] Comment on above: Performed By: #### E RTPF, CONNER, LIP, LIVP, TEGCR ####[address] [address] TEG Comment ACT is the only FDA approved component of the Rapid TEG. Normal [facility] Comment on above: Performed By: #### E RTPF, CONNER, LIP, LIVP, TEGCR ####[address] [place] [address] Type + Screenon 02-05-2018 Type + Screen Sample Expiration Arm Band Number [id number] ABO/Rh(D) A POSITIVE Antibody Screen NEGATIVE Unit Number [id number] Blood Component Type Leukocyte Reduced Red Cell Unit Division 00 Status of Unit TRANSFUSED Transfusion Status OK TO TRANSFUSE Crossmatch Result COMPATIBLE Unit Number [id number] Blood Component Type Leukocyte Reduced Red Cell Unit Division 00 Status of Unit TRANSFUSED Transfusion Status OK TO TRANSFUSE Crossmatch Result COMPATIBLE Normal [facility] Comment on above: Performed By: #### E RTPF, CONNRE, LIP, LIVP, TEGCR ####[facility] [address] [place] [address] XR CHEST PORTABLEon 02-06-20 18 XR CHEST [...] by:NADEGE Mcarthurigned by:Jack Jones MD02/05/18inal result Normal [facility] Ammoniaon 02-04-2018 Ammonia mass conc (P) 40 umol/L Normal 16-60 [facility] Comment on above: Performed By: #### E RTPF, CONNER, LIP, LIVP, TEGCR ####[address] [place] [address] Basic Metabolic Profon 02-04 BUN/CRE Ratio NOT REPORTED Normal - [facility] Comment on above: Performed By: #### E RTPF, CONNER, LIP, LIVP, TEGCR ####[address] [place] [address] Staging: NOT REPORTED Normal [facility] Comment on above: Performed By: #### E RTPF, CONNER, LIP, LIVP, TEGCR ####[address] [address] (cont.) Normal [facility] Comment on above: Result Comment: Aver age GFR for 50-59 years old: 93 mL/min/1.73sq mChronic Kidney Disease: <60 mL/min/1.73sq mKidney failure: <15 mL/min/1.73sq meGFR calculated using average adult body mass. Additional eGFR calculator available at:http://www.[employer].Peer5/multiple_crcl_2012.htm Performed By: #### E RTPF, CONNER, LIP, LIVP, TEGCR ####[address] [place] [address] Anion gap 3 molar conc 12 mmol/L Normal 01-18 [facility] Comment on above: Performed By: #### E RTPF, CONNER, LIP, LIVP, TEGCR ####[facility] [place] [address] Calcium mass conc 7.8 mg/dL Low 8.6-10.4 [facility] Comment on above: Performed By: #### E RTPF, CONNER, LIP, LIVP, TEGCR ####[facility] [place] [address] Chloride molar conc 117 mmol/L High 98-107 [facility] Comment on above: Performed By: #### E RTPF, CONNER, LIP, LIVP, TEGCR ####[address] [address] CO2 molar conc 18 mmol/L Low 20-31 [facility] Comment on above: Performed By: #### E RTPF, CONNER, LIP, LIVP, TEGCR ####[address] [address] Creatinine mass conc 3.52 mg/dL High 0.70-1.20 [facility] Comment on above: Performed By: #### E RTPF, CONNER, LIP, LIVP, TEGCR ####[address] [address] GFR, Amer 22 mL/min Low >60 [facility] Comment on above: Performed By: #### E RTPF, CONNER, LIP, LIVP, TEGCR ####[address] [address] GFR,non Amer 18 mL/min Low >60 [facility] Comment on above: Performed By: #### E RTPF, CONNER, LIP, LIVP, TEGCR ####[address] [address] Glucose mass conc 149 mg/dL High 70-99 [facility] Comment on above: Performed By: #### E RTPF, CONNER, LIP, LIVP, TEGCR ####[address] [address] Potassium molar conc 4.4 mmol/L Normal 3.7-5.3 [facility] Comment on above: Performed By: #### E RTPF, CONNER, LIP, LIVP, TEGCR ####[address] [address] Sodium molar conc 147 mmol/L High 135-144 [facility] Comment on above: Performed By: #### E RTPF, CONNER, LIP, LIVP, TEGCR ####[facility] [address] [place] [address] Urea nitrogen mass conc 64 mg/dL High 6-20 [facility] Comment on above: Performed By: #### E RTPF, CONNER, LIP, LIVP, TEGCR ####[facility] [address] [place] [address] BUN/CRE Ratio NOT REPORTED Normal -20 [facility] Comment on above: Performed By: #### E RTPF, CONNER, LIP, LIVP, TEGCR ####[address] [address] Staging: NOT REPORTED Normal [facility] Comment on above: Performed By: #### E RTPF, CONNER, LIP, LIVP, TEGCR ####[address] [address] (cont.) Normal [facility] Comment on above: Result Comment: Aver age GFR for 50-59 years old: 93 mL/min/1.73sq mChronic Kidney Disease: <60 mL/min/1.73sq mKidney failure: <15 mL/min/1.73sq meGFR calculated using average adult body mass. Additional eGFR calculator available at:http://www.[employer].com/multiple_crcl_2012.htm Performed By: #### E RTPF, CONNER, LIP, LIVP, TEGCR ####[address] [place] [address] Anion gap 3 molar conc 13 mmol/L Normal -17 [facility] Comment on above: Performed By: #### E RTPF, CONNER, LIP, LIVP, TEGCR ####[facility] [address] [place] [address] Calcium mass conc 7.5 mg/dL Low 8.6-10.4 [facility] Comment on above: Performed By: #### E RTPF, CONNER, LIP, LIVP, TEGCR ####[address] [address] Chloride molar conc 117 mmol/L High 98-107 [facility] Comment on above: Performed By: #### E RTPF, CONNER, LIP, LIVP, TEGCR ####[address] [address] CO2 molar conc 19 mmol/L Low 20-31 [facility] Comment on above: Performed By: #### E RTPF, CONNER, LIP, LIVP, TEGCR ####[address] [address] Creatinine mass conc 3.36 mg/dL High 0.70-1.20 [facility] Comment on above: Performed By: #### E RTPF, CONNER, LIP, LIVP, TEGCR ####[address] [address] GFR, Amer 23 mL/min Low >60 [facility] Comment on above: Performed By: #### E RTPF, CONNER, LIP, LIVP, TEGCR ####[address] [address] GFR,non Amer 19 mL/min Low >60 [facility] Comment on above: Performed By: #### E RTPF, CONNER, LIP, LIVP, TEGCR ####[address] [address] Glucose mass conc 140 mg/dL High 70-99 [facility] Comment on above: Performed By: #### E RTPF, CONNER, LIP, LIVP, TEGCR ####[address] [place] [address] Potassium molar conc 4.4 mmol/L Normal 3.7-5.3 [facility] Comment on above: Performed By: #### E RTPF, CONNER, LIP, LIVP, TEGCR ####[address] [address] Sodium molar conc 149 mmol/L High 135-144 [facility] Comment on above: Performed By: #### E RTPF, CONNER, LIP, LIVP, TEGCR ####[address] [address] Urea nitrogen mass conc 61 mg/dL High 6-20 [facility] Comment on above: Performed By: #### E RTPF, CONNER, LIP, LIVP, TEGCR ####[address] [address] BUN/CRE Ratio NOT REPORTED Normal 9-20 [facility] Comment on above: Performed By: #### E RTPF, CONNER, LIP, LIVP, TEGCR ####[address] [address] Staging: NOT REPORTED Normal [facility] Comment on above: Performed By: #### E RTPF, CONNER, LIP, LIVP, TEGCR ####[address] [address] (cont.) Normal [facility] Comment on above: Result Comment: Aver age GFR for 50-59 years old: 93 mL/min/1.73sq mChronic Kidney Disease: <60 mL/min/1.73sq mKidney failure: <15 mL/min/1.73sq meGFR calculated using average adult body mass. Additional eGFR calculator available at:http://www.[employer].Peer5/multiple_crcl_2011.htm Performed By: #### E RTPF, CONNER, LIP, LIVP, TEGCR ####[facility] [place] [address] Anion gap 3 molar conc 15 mmol/L Normal 9-17 [facility] Comment on above: Performed By: #### E RTPF, CONNER, LIP, LIVP, TEGCR ####[facility] [place] [address] Calcium mass conc 7.5 mg/dL Low 8.6-10.4 [facility] Comment on above: Performed By: #### E RTPF, CONNER, LIP, LIVP, TEGCR ####[address] [address] Chloride molar conc 114 mmol/L High 98-107 [facility] Comment on above: Performed By: #### E RTPF, CONNER, LIP, LIVP, TEGCR ####[address] [address] CO2 molar conc 17 mmol/L Low 20-31 [facility] Comment on above: Performed By: #### E RTPF, CONNER, LIP, LIVP, TEGCR ####[facility] [place] [address] Creatinine mass conc 3.20 mg/dL High 0.70-1.20 [facility] Comment on above: Performed By: #### E RTPF, CONNER, LIP, LIVP, TEGCR ####[facility] [address] [place] [address] GFR, Amer 24 mL/min Low >60 [facility] Comment on above: Performed By: #### E RTPF, CONNER, LIP, LIVP, TEGCR ####[facility] [place] [address] GFR,non Amer 20 mL/min Low >60 [facility] Comment on above: Performed By: #### E RTPF, CONNER, LIP, LIVP, TEGCR ####[facility] [address] [place] [address] Glucose mass conc 152 mg/dL High 70-99 [facility] Comment on above: Performed By: #### E RTPF, CONNER, LIP, LIVP, TEGCR ####[facility] [address] [place] [address] Potassium molar conc 4.4 mmol/L Normal 3.7-5.3 [facility] Comment on above: Performed By: #### E RTPF, CONNER, LIP, LIVP, TEGCR ####[facility] [address] [place] [address] Sodium molar conc 146 mmol/L High 135-144 [facility] Comment on above: Performed By: #### E RTPF, CONNER, LIP, LIVP, TEGCR ####[address] [place] [address] Urea nitrogen mass conc 57 mg/dL High 6-20 [facility] Comment on above: Performed By: #### E RTPF, CONNER, LIP, LIVP, TEGCR ####[facility] [place] [address] BUN/CRE Ratio NOT REPORTED Normal -20 [facility] Comment on above: Performed By: #### E RTPF, CONNER, LIP, LIVP, TEGCR ####[address] [place] [address] Staging: NOT REPORTED Normal [facility] Comment on above: Performed By: #### E RTPF, CONNER, LIP, LIVP, TEGCR ####[address] [place] [address] CBCon 02-04-2018 Erythrocyte distribution width Auto Ratio (RBC) 18.7 % High 11.8-14.4 [facility] Comment on above: Performed By: #### E RTPF, CONNER, LIP, LIVP, TEGCR ####[address] [address] Hematocrit Auto Volume Fraction (Bld) 24.4 % Low 40.7-50.3 [facility] Comment on above: Performed By: #### E RTPF, CONNER, LIP, LIVP, TEGCR ####[address] [address] Hemoglobin mass conc (Bld) 7.0 g/dL Critically low 13.0-17.0 [facility] Comment on above: Performed By: #### E RTPF, CONNER, LIP, LIVP, TEGCR ####[address] [address] MCH Auto Entitic mass (RBC) 30.3 pg Normal 25.2-33.5 [facility] Comment on above: Performed By: #### E RTPF, CONNER, LIP, LIVP, TEGCR ####[address] [address] MCHC Auto mass conc (RBC) 28.7 g/dL Normal 28.4-34.8 [facility] Comment on above: Performed By: #### E RTPF, CONNER, LIP, LIVP, TEGCR ####[address] [address] MCV Auto Entitic volume (RBC) 105.6 fL High 82.6-102.9 [facility] Comment on above: Performed By: #### E RTPF, CONNER, LIP, LIVP, TEGCR ####[address] [address] NRBC Automated 2.0 per 100 WBC High 0.0 [facility] Comment on above: Performed By: #### E RTPF, CONNER, LIP, LIVP, TEGCR ####[address] [address] Platelet mean volume Auto Entitic volume (Bld) 12.0 fL Normal 8.1-13.5 [facility] Comment on above: Performed By: #### E RTPF, CONNER, LIP, LIVP, TEGCR ####[address] [address] Platelets Auto #/vol (Bld) 433 10*3/uL Normal 138-453 [facility] Comment on above: Performed By: #### E RTPF, CONNER, LIP, LIVP, TEGCR ####[address] [address] RBC Auto #/vol (Bld) 2.31 10*6/uL Low 4.21-5.77 [facility] Comment on above: Performed By: #### E RTPF, CONNER, LIP, LIVP, TEGCR ####[address] [address] WBC Auto #/vol (Bld) 31.9 10*3/uL Critically high 3.5-11.3 [facility] Comment on above: Performed By: #### E RTPF, CONNER, LIP, LIVP, TEGCR ####[address] [address] Creatinine,Random Uron 02-04 Creatinine mass conc 50.3 mg/dL Normal 39.0-259.0 [facility] Comment on above: Performed By: #### E RTPF, CONNER, LIP, LIVP, TEGCR ####[address] [address] Cult,Aerobe/Anaerobeon 02-04 Cult,Aerobe/Anaerobe Specimen Descriptio n .ABDOMEN .DRAINAGE SWABSpecial Requests NOT REPORTEDDirect Exam MANY NEUTROPHILS NO BACTERIA SEEN Culture NO GROWTH 5 DAYSReport Status FINAL 02/04/2018 Normal [facility] Comment on above: Performed By: #### E RTPF, CONNER, LIP, LIVP, TEGCR ####[address] [place] [address] Lactate, Sepsison 02-04-2018 Lactic Acid,Sep Wbld 1.1 mmol/L Normal 0.5-1.9 [facility] Comment on above: Performed By: #### E RTPF, CONNER, LIP, LIVP, TEGCR ####[address] [address] Lactic Acid, Sepsis NOT REPORTED Normal 0.5-1.9 [facility] Comment on above: Performed By: #### E RTPF, CONNER, LIP, LIVP, TEGCR ####[address] [address] Liver Profileon 02-04-2018 Albumin mass conc 1.9 g/dL Low 3.5-5.2 [facility] Comment on above: Performed By: #### E RTPF, CONNER, LIP, LIVP, TEGCR ####[address] [address] Albumin/Globulin mass ratio 0.5 {ratio} Low 1.0-2.5 [facility] Comment on above: Performed By: #### E RTPF, CONNER, LIP, LIVP, TEGCR ####[facility] [place] [address] Alkaline Phos 80 U/L Normal 40-129 [facility] Comment on above: Performed By: #### E RTPF, CONNER, LIP, LIVP, TEGCR ####[address] [place] [address] ALT enzyme act/vol 15 U/L Normal 5-41 [facility] Comment on above: Performed By: #### E RTPF, CONNER, LIP, LIVP, TEGCR ####[address] [address] AST enzyme act/vol 39 U/L Normal <40 [facility] Comment on above: Performed By: #### E RTPF, CONNER, LIP, LIVP, TEGCR ####[address] [address] Bilirubin Ql (U) 0.46 mg/dL Normal 0.3-1.2 [facility] Comment on above: Performed By: #### E RTPF, CONNER, LIP, LIVP, TEGCR ####[address] [address] Bilirubin, Indirect 0.18 mg/dL Normal 0.00-1.00 [facility] Comment on above: Performed By: #### E RTPF, CONNER, LIP, LIVP, TEGCR ####[address] [address] Bilirubin.direct mass conc 0.28 mg/dL Normal <0.31 [facility] Comment on above: Performed By: #### E RTPF, CONNER, LIP, LIVP, TEGCR ####[address] [address] Protein mass conc 6.1 g/dL Low 6.4-8.3 [facility] Comment on above: Performed By: #### E RTPF, CONNER, LIP, LIVP, TEGCR ####[address] [address] Globulin Calculated mass conc (S) NOT REPORTED Normal 1.5-3.8 [facility] Comment on above: Performed By: #### E RTPF, CONNER, LIP, LIVP, TEGCR ####[address] [place] [address] Osmolalityon 02-04-2018 Osmolality 331 mOsm/kg Critically high 275-295 [facility] Comment on above: Performed By: #### E RTPF, CONNER, LIP, LIVP, TEGCR ####[address] [place] [address] Osmolality, Urineon 02-05-20 18 Osmolality - Urine 286 mOsm/kg Normal 80-1300 [facility] Comment on above: Performed By: #### E RTPF, CONNER, LIP, LIVP, TEGCR ####[address] [place] [address] Sodium, Random Uron 02-05-20 18 Na Conc. Urine 26 mmol/L Normal [facility] Comment on above: Result Comment: No n ormal range established. Performed By: #### E RTPF, CONNER, LIP, LIVP, TEGCR ####[address] [address] Basic Metabolic Profon 02-03 (cont.) Normal [facility] Comment on above: Result Comment: Aver age GFR for 50-59 years old: 93 mL/min/1.73sq mChronic Kidney Disease: <60 mL/min/1.73sq mKidney failure: <15 mL/min/1.73sq meGFR calculated using average adult body mass. Additional eGFR calculator available at:http://www.[employer].Peer5/multiple_crcl_2012.htm Performed By: #### E RTPF, CONNER, LIP, LIVP, TEGCR ####[address] [place] [address] Anion gap 3 molar conc 5 mmol/L Low 9-17 [facility] Comment on above: Performed By: #### E RTPF, CONNER, LIP, LIVP, TEGCR ####[address] [address] Calcium mass conc 7.4 mg/dL Low 8.6-10.4 [facility] Comment on above: Performed By: #### E RTPF, CONNER, LIP, LIVP, TEGCR ####[address] [place] [address] Chloride molar conc 121 mmol/L High 98-107 [facility] Comment on above: Performed By: #### E RTPF, CONNER, LIP, LIVP, TEGCR ####[address] [address] CO2 molar conc 20 mmol/L Normal 20-31 [facility] Comment on above: Performed By: #### E RTPF, CONNER, LIP, LIVP, TEGCR ####[address] [address] Creatinine mass conc 1.94 mg/dL High 0.70-1.20 [facility] Comment on above: Performed By: #### E RTPF, CONNER, LIP, LIVP, TEGCR ####[address] [address] GFR, Amer 43 mL/min Low >60 [facility] Comment on above: Performed By: #### E RTPF, CONNER, LIP, LIVP, TEGCR ####[facility] [place] [address] GFR,non Amer 36 mL/min Low >60 [facility] Comment on above: Performed By: #### E RTPF, CONNER, LIP, LIVP, TEGCR ####[address] [address] Glucose mass conc 166 mg/dL High 70-99 [facility] Comment on above: Performed By: #### E RTPF, CONNER, LIP, LIVP, TEGCR ####[address] [place] [address] Potassium molar conc 4.1 mmol/L Normal 3.7-5.3 [facility] Comment on above: Performed By: #### E RTPF, CONNER, LIP, LIVP, TEGCR ####[address] [place] [address] Sodium molar conc 146 mmol/L High 135-144 [facility] Comment on above: Performed By: #### E RTPF, CONNER, LIP, LIVP, TEGCR ####[address] [place] [address] Urea nitrogen mass conc 34 mg/dL High 6-20 [facility] Comment on above: Performed By: #### E RTPF, CONNER, LIP, LIVP, TEGCR ####[address] [place] [address] BUN/CRE Ratio NOT REPORTED Normal -20 [facility] Comment on above: Performed By: #### E RTPF, CONNER, LIP, LIVP, TEGCR ####[address] [place] [address] Staging: NOT REPORTED Normal [facility] Comment on above: Performed By: #### E RTPF, CONNER, LIP, LIVP, TEGCR ####[address] [address] (cont.) Normal [facility] Comment on above: Result Comment: Aver age GFR for 50-59 years old: 93 mL/min/1.73sq mChronic Kidney Disease: <60 mL/min/1.73sq mKidney failure: <15 mL/min/1.73sq meGFR calculated using average adult body mass. Additional eGFR calculator available at:http://www.[employer].Peer5/multiple_crcl_2012.htm Performed By: #### E RTPF, CONNER, LIP, LIVP, TEGCR ####[facility] [address] [place] [address] Anion gap 3 molar conc 14 mmol/L Normal 9-17 [facility] Comment on above: Performed By: #### E RTPF, CONNER, LIP, LIVP, TEGCR ####[facility] [place] [address] Calcium mass conc 7.7 mg/dL Low 8.6-10.4 [facility] Comment on above: Performed By: #### E RTPF, CONNER, LIP, LIVP, TEGCR ####[address] [place] [address] Chloride molar conc 122 mmol/L High 98-107 [facility] Comment on above: Performed By: #### E RTPF, CONNER, LIP, LIVP, TEGCR ####[address] [address] CO2 molar conc 20 mmol/L Normal 20-31 [facility] Comment on above: Performed By: #### E RTPF, CONNER, LIP, LIVP, TEGCR ####[facility] [place] [address] Creatinine mass conc 1.72 mg/dL High 0.70-1.20 [facility] Comment on above: Performed By: #### E RTPF, CONNER, LIP, LIVP, TEGCR ####[facility] [address] [place] [address] GFR, Amer 50 mL/min Low >60 [facility] Comment on above: Performed By: #### E RTPF, CONNER, LIP, LIVP, TEGCR ####[address] [place] [address] GFR,non Amer 41 mL/min Low >60 [facility] Comment on above: Performed By: #### E RTPF, CONNER, LIP, LIVP, TEGCR ####[facility] [place] [address] Glucose mass conc 193 mg/dL High 70-99 [facility] Comment on above: Performed By: #### E RTPF, CONNER, LIP, LIVP, TEGCR ####[address] [place] [address] Potassium molar conc 4.5 mmol/L Normal 3.7-5.3 [facility] Comment on above: Performed By: #### E RTPF, CONNER, LIP, LIVP, TEGCR ####[address] [place] [address] Sodium molar conc 156 mmol/L High 135-144 [facility] Comment on above: Performed By: #### E RTPF, CONNER, LIP, LIVP, TEGCR ####[address] [address] Urea nitrogen mass conc 30 mg/dL High 6-20 [facility] Comment on above: Performed By: #### E RTPF, CONNER, LIP, LIVP, TEGCR ####[address] [place] [address] BUN/CRE Ratio NOT REPORTED Normal 9-20 [facility] Comment on above: Performed By: #### E RTPF, CONNER, LIP, LIVP, TEGCR ####[address] [place] [address] Staging: NOT REPORTED Normal [facility] Comment on above: Performed By: #### E RTPF, CONNER, LIP, LIVP, TEGCR ####[address] [address] CBCon 02-03-2018 Erythrocyte distribution width Auto Ratio (RBC) 18.5 % High 11.8-14.4 [facility] Comment on above: Performed By: #### E RTPF, CONNER, LIP, LIVP, TEGCR ####[address] [address] Hematocrit Auto Volume Fraction (Bld) 27.9 % Low 40.7-50.3 [facility] Comment on above: Performed By: #### E RTPF, CONNER, LIP, LIVP, TEGCR ####[address] [address] Hemoglobin mass conc (Bld) 7.6 g/dL Low 13.0-17.0 [facility] Comment on above: Performed By: #### E RTPF, CONNER, LIP, LIVP, TEGCR ####[address] [address] MCH Auto Entitic mass (RBC) 30.3 pg Normal 25.2-33.5 [facility] Comment on above: Performed By: #### E RTPF, CONNER, LIP, LIVP, TEGCR ####[address] [address] MCHC Auto mass conc (RBC) 27.2 g/dL Low 28.4-34.8 [facility] Comment on above: Performed By: #### E RTPF, CONNER, LIP, LIVP, TEGCR ####[address] [address] MCV Auto Entitic volume (RBC) 111.2 fL High 82.6-102.9 [facility] Comment on above: Performed By: #### E RTPF, CONNER, LIP, LIVP, TEGCR ####[address] [address] NRBC Automated 1.0 per 100 WBC High 0.0 [facility] Comment on above: Performed By: #### E RTPF, CONNER, LIP, LIVP, TEGCR ####[address] [address] Platelet mean volume Auto Entitic volume (Bld) 11.3 fL Normal 8.1-13.5 [facility] Comment on above: Performed By: #### E RTPF, CONNER, LIP, LIVP, TEGCR ####[address] [address] Platelets Auto #/vol (Bld) 533 10*3/uL High 138-453 [facility] Comment on above: Performed By: #### E RTPF, CONNER, LIP, LIVP, TEGCR ####[address] [address] RBC Auto #/vol (Bld) 2.51 10*6/uL Low 4.21-5.77 [facility] Comment on above: Performed By: #### E RTPF, CONNER, LIP, LIVP, TEGCR ####[address] [address] WBC Auto #/vol (Bld) 33.5 10*3/uL Critically high 3.5-11.3 [facility] Comment on above: Performed By: #### E RTPF, CONNER, LIP, LIVP, TEGCR ####[address] [address] Erythrocyte distribution width Auto Ratio (RBC) 18.2 % High 11.8-14.4 [facility] Comment on above: Performed By: #### E RTPF, CONNER, LIP, LIVP, TEGCR ####[address] [address] Hematocrit Auto Volume Fraction (Bld) 29.0 % Low 40.7-50.3 [facility] Comment on above: Performed By: #### E RTPF, CONNER, LIP, LIVP, TEGCR ####[address] [place] [address] Hemoglobin mass conc (Bld) 8.1 g/dL Low 13.0-17.0 [facility] Comment on above: Performed By: #### E RTPF, CONNER, LIP, LIVP, TEGCR ####[address] [address] MCH Auto Entitic mass (RBC) 30.5 pg Normal 25.2-33.5 [facility] Comment on above: Performed By: #### E RTPF, CONNER, LIP, LIVP, TEGCR ####[address] [address] MCHC Auto mass conc (RBC) 27.9 g/dL Low 28.4-34.8 [facility] Comment on above: Performed By: #### E RTPF, CONNER, LIP, LIVP, TEGCR ####[address] [address] MCV Auto Entitic volume (RBC) 109.0 fL High 82.6-102.9 [facility] Comment on above: Performed By: #### E RTPF, CONNER, LIP, LIVP, TEGCR ####[address] [address] NRBC Automated 1.6 per 100 WBC High 0.0 [facility] Comment on above: Performed By: #### E RTPF, CONNER, LIP, LIVP, TEGCR ####[address] [address] Platelet mean volume Auto Entitic volume (Bld) 11.1 fL Normal 8.1-13.5 [facility] Comment on above: Performed By: #### E RTPF, CONNER, LIP, LIVP, TEGCR ####[address] [address] Platelets Auto #/vol (Bld) 576 10*3/uL High 138-453 [facility] Comment on above: Performed By: #### E RTPF, CONNER, LIP, LIVP, TEGCR ####[address] [address] RBC Auto #/vol (Bld) 2.66 10*6/uL Low 4.21-5.77 [facility] Comment on above: Performed By: #### E RTPF, CONNER, LIP, LIVP, TEGCR ####[address] [address] WBC Auto #/vol (Bld) 30.0 10*3/uL High 3.5-11.3 [facility] Comment on above: Performed By: #### E RTPF, CONNER, LIP, LIVP, TEGCR ####[address] [address] Cult,Bloodon 02-03-2018 Cult,Blood Specimen Description .BLOOD Special Requests RT FOREARM 6 ML Culture NO GROWTH 6 DAYS Report Status FINAL 02/03/2018 [facility] Comment on above: Performed By: #### E RTPF, CONNER, LIP, LIVP, TEGCR ####[address] [address] Cult,Blood Specimen Description .BLOOD Special Requests 1ML RT HAND Culture NO GROWTH 6 DAYS Report Status FINAL 02/03/2018 [facility] Comment on above: Performed By: #### E RTPF, CONNER, LIP, LIVP, TEGCR ####[address] [address] Lactic Acid,Whole Blon 02-03 Lactic Acid,Whole Bl 2.0 mmol/L Normal 0.7-2.1 [facility] Comment on above: Performed By: #### E RTPF, CONNER, LIP, LIVP, TEGCR ####[facility] [address] [place] [address] Magnesiumon 02-03-2018 Magnesium mass conc 2.1 mg/dL Normal 1.6-2.6 [facility] Comment on above: Performed By: #### E RTPF, CONNER, LIP, LIVP, TEGCR ####[facility] [address] [place] [address] Magnesium mass conc 2.4 mg/dL Normal 1.6-2.6 [facility] Comment on above: Performed By: #### E RTPF, CONNER, LIP, LIVP, TEGCR ####[address] [place] [address] NA (Sodium)on 02-03-2018 Sodium molar conc 150 mmol/L High 135-144 [facility] Comment on above: Performed By: #### E RTPF, CONNER, LIP, LIVP, TEGCR ####[facility] [address] [place] [address] Sodium molar conc 155 mmol/L High 135-144 [facility] Comment on above: Performed By: #### E RTPF, CONNER, LIP, LIVP, TEGCR ####[facility] [place] [address] Phosphorus, Inorg.on 018 Phosphorus, Inorg. 2.0 mg/dL Low 2.5-4.5 [facility] Comment on above: Performed By: #### E RTPF, CONNER, LIP, LIVP, TEGCR ####[facility] [address] [place] [address] Phosphorus, Inorg. 3.2 mg/dL Normal 2.5-4.5 [facility] Comment on above: Performed By: #### E RTPF, CONNER, LIP, LIVP, TEGCR ####[facility] [place], [place] [id number] XR CHEST PORTABLEon 02-04-20 18 XR CHEST [...] tubes and lines.Interpreted by:NADEGE Romeroigned by:Ramakrishna Santana MD02/03/18inal result Normal [facility] Basic Metabolic Profon 02-02 (cont.) Normal [facility] Comment on above: Result Comment: Aver age GFR for 50-59 years old: 93 mL/min/1.73sq mChronic Kidney Disease: <60 mL/min/1.73sq mKidney failure: <15 mL/min/1.73sq meGFR calculated using average adult body mass. Additional eGFR calculator available at:http://www.[employer].Peer5/multiple_crcl_2012.htm Performed By: #### E RTPF, CONNER, LIP, LIVP, TEGCR ####[facility] [address] [place], [place] [id number] Anion gap 3 molar conc 14 mmol/L Normal 9-17 [facility] Comment on above: Performed By: #### E RTPF, CONNER, LIP, LIVP, TEGCR ####[facility] [address] [place], [place] [id number] Calcium mass conc 7.6 mg/dL Low 8.6-10.4 [facility] Comment on above: Performed By: #### E RTPF, CONNER, LIP, LIVP, TEGCR ####[facility] [address] [place] [address] Chloride molar conc 125 mmol/L High 98-107 [facility] Comment on above: Performed By: #### E RTPF, CONNER, LIP, LIVP, TEGCR ####[facility] [place] [address] CO2 molar conc 20 mmol/L Normal 20-31 [facility] Comment on above: Performed By: #### E RTPF, CONNER, LIP, LIVP, TEGCR ####[address] [place] [address] Creatinine mass conc 1.57 mg/dL High 0.70-1.20 [facility] Comment on above: Performed By: #### E RTPF, CONNER, LIP, LIVP, TEGCR ####[address] [address] GFR, Amer 55 mL/min Low >60 [facility] Comment on above: Performed By: #### E RTPF, CONNER, LIP, LIVP, TEGCR ####[facility] [address] [place] [address] GFR,non Amer 46 mL/min Low >60 [facility] Comment on above: Performed By: #### E RTPF, CONNER, LIP, LIVP, TEGCR ####[facility] [address] [place] [address] Glucose mass conc 162 mg/dL High 70-99 [facility] Comment on above: Performed By: #### E RTPF, CONNER, LIP, LIVP, TEGCR ####[facility] [place] [address] Potassium molar conc 3.8 mmol/L Normal 3.7-5.3 [facility] Comment on above: Performed By: #### E RTPF, CONNER, LIP, LIVP, TEGCR ####[address] [place] [address] Sodium molar conc 159 mmol/L High 135-144 [facility] Comment on above: Performed By: #### E RTPF, CONNER, LIP, LIVP, TEGCR ####[address] [address] Urea nitrogen mass conc 30 mg/dL High 6-20 [facility] Comment on above: Performed By: #### E RTPF, CONNER, LIP, LIVP, TEGCR ####[address] [address] BUN/CRE Ratio NOT REPORTED Normal - [facility] Comment on above: Performed By: #### E RTPF, CONNER, LIP, LIVP, TEGCR ####[address] [address] Staging: NOT REPORTED Normal [facility] Comment on above: Performed By: #### E RTPF, CONNER, LIP, LIVP, TEGCR ####[address] [address] CBCon 02-02-2018 Erythrocyte distribution width Auto Ratio (RBC) 18.4 % High 11.8-14.4 [facility] Comment on above: Performed By: #### E RTPF, CONNER, LIP, LIVP, TEGCR ####[address] [address] Hematocrit Auto Volume Fraction (Bld) 29.2 % Low 40.7-50.3 [facility] Comment on above: Performed By: #### E RTPF, CONNER, LIP, LIVP, TEGCR ####[address] [address] Hemoglobin mass conc (Bld) 8.3 g/dL Low 13.0-17.0 [facility] Comment on above: Performed By: #### E RTPF, CONNER, LIP, LIVP, TEGCR ####[address] [address] MCH Auto Entitic mass (RBC) 30.1 pg Normal 25.2-33.5 [facility] Comment on above: Performed By: #### E RTPF, CONNER, LIP, LIVP, TEGCR ####[address] [address] MCHC Auto mass conc (RBC) 28.4 g/dL Normal 28.4-34.8 [facility] Comment on above: Performed By: #### E RTPF, CONNER, LIP, LIVP, TEGCR ####[address] [address] MCV Auto Entitic volume (RBC) 105.8 fL High 82.6-102.9 [facility] Comment on above: Performed By: #### E RTPF, CONNER, LIP, LIVP, TEGCR ####[address] [address] NRBC Automated 1.1 per 100 WBC High 0.0 [facility] Comment on above: Performed By: #### E RTPF, CONNER, LIP, LIVP, TEGCR ####[address] [address] Platelet mean volume Auto Entitic volume (Bld) 11.0 fL Normal 8.1-13.5 [facility] Comment on above: Performed By: #### E RTPF, CONNER, LIP, LIVP, TEGCR ####[address] [address] Platelets Auto #/vol (Bld) 675 10*3/uL High 138-453 [facility] Comment on above: Performed By: #### E RTPF, CONNER, LIP, LIVP, TEGCR ####[address] [address] RBC Auto #/vol (Bld) 2.76 10*6/uL Low 4.21-5.77 [facility] Comment on above: Performed By: #### E RTPF, CONNER, LIP, LIVP, TEGCR ####[address] [address] WBC Auto #/vol (Bld) 31.5 10*3/uL Critically high 3.5-11.3 [facility] Comment on above: Performed By: #### E RTPF, CONNER, LIP, LIVP, TEGCR ####[address] [address] Calcium, Ionicon 02-02-2018 Calcium mass conc 1.11 mmol/L Low 1.13-1.33 [facility] Comment on above: Performed By: #### E RTPF, CONNER, LIP, LIVP, TEGCR ####[address] [address] Creatinine,Random Uron 02-02 Creatinine mass conc 48.7 mg/dL Normal 39.0-259.0 [facility] Comment on above: Performed By: #### E RTPF, CONNER, LIP, LIVP, TEGCR ####[address] [address] NA (Sodium)on 02-02-2018 Sodium molar conc 162 mmol/L Critically high 135-144 [facility] Comment on above: Performed By: #### E RTPF, CONNER, LIP, LIVP, TEGCR ####[address] [place] [address] Sodium molar conc 156 mmol/L High 135-144 [facility] Comment on above: Performed By: #### E RTPF, CONNER, LIP, LIVP, TEGCR ####[address] [place] [address] Sodium molar conc 155 mmol/L High 135-144 [facility] Comment on above: Performed By: #### E RTPF, CONNER, LIP, LIVP, TEGCR ####[address] [address] Osmolalityon 02-02-2018 Osmolality 333 mOsm/kg Critically high 275-295 [facility] Comment on above: Result Comment: ADDE D ON Performed By: #### E RTPF, CONNER, LIP, LIVP, TEGCR ####[address] [place] [address] Osmolality, Urineon 02-03-20 18 Osmolality - Urine 336 mOsm/kg Normal 80-1300 [facility] Comment on above: Performed By: #### E RTPF, CONNER, LIP, LIVP, TEGCR ####[address] [address] Sodium, Random Uron 02-03-20 18 Na Conc. Urine 38 mmol/L Normal [facility] Comment on above: Result Comment: No n ormal range established. Performed By: #### E RTPF, CONNER, LIP, LIVP, TEGCR ####[address] [address] Basic Metabolic Profon 02-01 (cont.) Normal [facility] Comment on above: Result Comment: Aver age GFR for 50-59 years old: 93 mL/min/1.73sq mChronic Kidney Disease: <60 mL/min/1.73sq mKidney failure: <15 mL/min/1.73sq meGFR calculated using average adult body mass. Additional eGFR calculator available at:http://www.[employer].com/multiple_crcl_2012.htm Performed By: #### E RTPF, CONNER, LIP, LIVP, TEGCR ####[facility] [place] [address] Anion gap 3 molar conc 15 mmol/L Normal 9-17 [facility] Comment on above: Performed By: #### E RTPF, CONNER, LIP, LIVP, TEGCR ####[address] [place] [address] Calcium mass conc 7.6 mg/dL Low 8.6-10.4 [facility] Comment on above: Performed By: #### E RTPF, CONNER, LIP, LIVP, TEGCR ####[address] [address] Chloride molar conc 121 mmol/L High 98-107 [facility] Comment on above: Performed By: #### E RTPF, CONNER, LIP, LIVP, TEGCR ####[address] [address] CO2 molar conc 22 mmol/L Normal 20-31 [facility] Comment on above: Performed By: #### E RTPF, CONNER, LIP, LIVP, TEGCR ####[facility] [place] [address] Creatinine mass conc 1.43 mg/dL High 0.70-1.20 [facility] Comment on above: Performed By: #### E RTPF, CONNER, LIP, LIVP, TEGCR ####[facility] [place] [address] GFR, Amer >60 Normal >60 [facility] Comment on above: Performed By: #### E RTPF, CONNER, LIP, LIVP, TEGCR ####[facility] [place] [address] GFR,non Amer 51 mL/min Low >60 [facility] Comment on above: Performed By: #### E RTPF, CONNER, LIP, LIVP, TEGCR ####[facility] [address] [place] [address] Glucose mass conc 156 mg/dL High 70-99 [facility] Comment on above: Performed By: #### E RTPF, CONNER, LIP, LIVP, TEGCR ####[facility] [address] [place] [address] Potassium molar conc 3.8 mmol/L Normal 3.7-5.3 [facility] Comment on above: Performed By: #### E RTPF, CONNER, LIP, LIVP, TEGCR ####[address] [address] Sodium molar conc 158 mmol/L High 135-144 [facility] Comment on above: Performed By: #### E RTPF, CONNER, LIP, LIVP, TEGCR ####[address] [place] [address] Urea nitrogen mass conc 25 mg/dL High 6-20 [facility] Comment on above: Performed By: #### E RTPF, CONNER, LIP, LIVP, TEGCR ####[facility] [place] [address] BUN/CRE Ratio NOT REPORTED Normal -20 [facility] Comment on above: Performed By: #### E RTPF, CONNER, LIP, LIVP, TEGCR ####[facility] [address] [place] [address] Staging: NOT REPORTED Normal [facility] Comment on above: Performed By: #### E RTPF, CONNER, LIP, LIVP, TEGCR ####[address] [address] CBC with Diffon 02-01-2018 Abs. Basophil 0.00 k/uL Normal 0.0-0.2 [facility] Comment on above: Performed By: #### E RTPF, CONNER, LIP, LIVP, TEGCR ####[address] [address] Abs.Imm.Granulocyte 0.95 k/uL High 0.00-0.30 [facility] Comment on above: Performed By: #### E RTPF, CONNER, LIP, LIVP, TEGCR ####[place] [address] Abs.Neutrophil (Seg) 19.43 k/uL High 1.8-7.7 [facility] Comment on above: Performed By: #### E RTPF, CONNER, LIP, LIVP, TEGCR ####[place] [address] Basophils/100 WBC Auto (Bld) 0 % Normal 0-2 [facility] Comment on above: Performed By: #### E RTPF, CONNER, LIP, LIVP, TEGCR ####[address] [address] Eosinophils Auto #/vol (Bld) 0.24 10*3/uL Normal 0.0-0.4 [facility] Comment on above: Performed By: #### E RTPF, CONNER, LIP, LIVP, TEGCR ####[address] [address] Eosinophils/100 WBC Auto (Bld) 1 % Normal 1-4 [facility] Comment on above: Performed By: #### E RTPF, CONNER, LIP, LIVP, TEGCR ####[address] [address] Immature granulocytes #/vol (Bld) 4 % High 0 [facility] Comment on above: Performed By: #### E RTPF, CONNER, LIP, LIVP, TEGCR ####[address] [address] Lymphocytes Auto #/vol (Bld) 2.13 10*3/uL Normal 1.0-4.8 [facility] Comment on above: Performed By: #### E RTPF, CONNER, LIP, LIVP, TEGCR ####[address] [address] Lymphocytes/100 WBC Auto (Bld) 9 % Low 24-44 [facility] Comment on above: Performed By: #### E RTPF, CONNER, LIP, LIVP, TEGCR ####[address] [address] Monocytes Auto #/vol (Bld) 0.95 10*3/uL High 0.1-0.8 [facility] Comment on above: Performed By: #### E RTPF, CONNER, LIP, LIVP, TEGCR ####[address] [address] Monocytes/100 WBC Auto (Bld) 4 % Normal 1-7 [facility] Comment on above: Performed By: #### E RTPF, CONNER, LIP, LIVP, TEGCR ####[address] [address] Morphology Interp Eduard (Bld) ANISOCYTOSIS PRESENT Normal [facility] Comment on above: Result Comment: MACR OCYTOSIS PRESENT Performed By: #### E RTPF, CONNER, LIP, LIVP, TEGCR ####[address] [address] Neutrophil (Seg) 82 % High 36-66 [facility] Comment on above: Performed By: #### E RTPF, CONNER, LIP, LIVP, TEGCR ####[address] [address] Nucleated RBC/100 WBC Ratio (Bld) 1 per 100 WBC High 0 [facility] Comment on above: Performed By: #### E RTPF, CONNER, LIP, LIVP, TEGCR ####[address] [address] Erythrocyte distribution width Auto Ratio (RBC) 18.3 % High 11.8-14.4 [facility] Comment on above: Performed By: #### E RTPF, CONNER, LIP, LIVP, TEGCR ####[address] [address] Hematocrit Auto Volume Fraction (Bld) 33.7 % Low 40.7-50.3 [facility] Comment on above: Performed By: #### E RTPF, CONNER, LIP, LIVP, TEGCR ####[address] [address] Hemoglobin mass conc (Bld) 8.8 g/dL Low 13.0-17.0 [facility] Comment on above: Performed By: #### E RTPF, CONNER, LIP, LIVP, TEGCR ####[address] [address] MCH Auto Entitic mass (RBC) 30.1 pg Normal 25.2-33.5 [facility] Comment on above: Performed By: #### E RTPF, CONNER, LIP, LIVP, TEGCR ####[address] [address] MCHC Auto mass conc (RBC) 26.1 g/dL Low 28.4-34.8 [facility] Comment on above: Performed By: #### E RTPF, CONNER, LIP, LIVP, TEGCR ####[address] [address] MCV Auto Entitic volume (RBC) 115.4 fL High 82.6-102.9 [facility] Comment on above: Performed By: #### E RTPF, CONNER, LIP, LIVP, TEGCR ####[address] [address] NRBC Automated 1.2 per 100 WBC High 0.0 [facility] Comment on above: Performed By: #### E RTPF, CONNER, LIP, LIVP, TEGCR ####[address] [address] Platelet mean volume Auto Entitic volume (Bld) 10.7 fL Normal 8.1-13.5 [facility] Comment on above: Performed By: #### E RTPF, CONNER, LIP, LIVP, TEGCR ####[address] [address] Platelets Auto #/vol (Bld) 775 10*3/uL High 138-453 [facility] Comment on above: Performed By: #### E RTPF, CONNER, LIP, LIVP, TEGCR ####[address] [address] RBC Auto #/vol (Bld) 2.92 10*6/uL Low 4.21-5.77 [facility] Comment on above: Performed By: #### E RTPF, CONNER, LIP, LIVP, TEGCR ####[address] [address] WBC Auto #/vol (Bld) 23.7 10*3/uL High 3.5-11.3 [facility] Comment on above: Performed By: #### E RTPF, CONNER, LIP, LIVP, TEGCR ####[address] [address] Auto Diff Performed NOT REPORTED Normal [facility] Comment on above: Performed By: #### E RTPF, CONNER, LIP, LIVP, TEGCR ####[address] [address] Platelets Auto #/vol (Bld) NOT REPORTED Normal [facility] Comment on above: Performed By: #### E RTPF, CONNER, LIP, LIVP, TEGCR ####[address] [address] RBC morphology finding Nom (Bld) NOT REPORTED Normal [facility] Comment on above: Performed By: #### E RTPF, CONNER, LIP, LIVP, TEGCR ####[address] [address] WBC Morphology NOT REPORTED Normal [facility] Comment on above: Performed By: #### E RTPF, CONNER, LIP, LIVP, TEGCR ####[address] [address] NA (Sodium)on 02-01-2018 Sodium molar conc 152 mmol/L High 135-144 [facility] Comment on above: Performed By: #### E RTPF, CONNER, LIP, LIVP, TEGCR ####[address] [address] OPERATIVE REPORTon 8 OPERATIVE REPORT [address] [address] OPERATIVE REPORTPATIENT NAME: ALEJO FLOYD : 1960[facility] REC NO: [id number] ROOM: [address] [place] [address] NO: [id number] ADMIT DATE: 01/19/2018PROVIDER: Ele MottDATE OF PROCEDURE: [...] patient's sister, Alex Floyd, his power of director of oncology. All risks, benefits and alternatives were discussed [...] this, cut in a single layer and vjltoy-bm-donau stitches frominferior to the proximal aspect of [...] of this case.ELE MOTTD: 02/01/2018 15:34:43 GEORGE/[email or web address]#: [id number] Doc#: [id number]: MD Nallely Argueta [facility] XR CHEST PORTABLEon 02-02-20 18 XR [...] by:NADEGE Mendezigned by:Jeramy Solano MD02/01/18inal result Normal [facility] Basic Metabolic Profon 01-31 (cont.) Normal [facility] Comment on above: Result Comment: Aver age GFR for 50-59 years old: 93 mL/min/1.73sq mChronic Kidney Disease: <60 mL/min/1.73sq mKidney failure: <15 mL/min/1.73sq meGFR calculated using average adult body mass. Additional eGFR calculator available at:http://www.Borderfree/multiple_crcl_2012.htm Performed By: #### E RTPF, CONNER, LIP, LIVP, TEGCR ####[facility] [place] [address] Anion gap 3 molar conc 14 mmol/L Normal 9-17 [facility] Comment on above: Performed By: #### E RTPF, CONNER, LIP, LIVP, TEGCR ####[facility] [address] [place] [address] Calcium mass conc 8.1 mg/dL Low 8.6-10.4 [facility] Comment on above: Performed By: #### E RTPF, CONNER, LIP, LIVP, TEGCR ####[facility] [address] [place] [address] Chloride molar conc 114 mmol/L High 98-107 [facility] Comment on above: Performed By: #### E RTPF, CONNER, LIP, LIVP, TEGCR ####[facility] [address] [place] [address] CO2 molar conc 23 mmol/L Normal 20-31 [facility] Comment on above: Performed By: #### E RTPF, CONNER, LIP, LIVP, TEGCR ####[facility] [address] [place] [address] Creatinine mass conc 1.31 mg/dL High 0.70-1.20 [facility] Comment on above: Performed By: #### E RTPF, CONNER, LIP, LIVP, TEGCR ####[address] [place] [address] GFR, Amer >60 Normal >60 [facility] Comment on above: Performed By: #### E RTPF, CONNER, LIP, LIVP, TEGCR ####[facility] [address] [place] [address] GFR,non Amer 56 mL/min Low >60 [facility] Comment on above: Performed By: #### E RTPF, CONNER, LIP, LIVP, TEGCR ####[address] [address] Glucose mass conc 156 mg/dL High 70-99 [facility] Comment on above: Performed By: #### E RTPF, CONNER, LIP, LIVP, TEGCR ####[address] [address] Potassium molar conc 3.3 mmol/L Low 3.7-5.3 [facility] Comment on above: Performed By: #### E RTPF, CONNER, LIP, LIVP, TEGCR ####[facility] [place] [address] Sodium molar conc 151 mmol/L High 135-144 [facility] Comment on above: Performed By: #### E RTPF, CONNER, LIP, LIVP, TEGCR ####[address] [place] [address] Urea nitrogen mass conc 20 mg/dL Normal 6-20 [facility] Comment on above: Performed By: #### E RTPF, CONNER, LIP, LIVP, TEGCR ####[address] [address] BUN/CRE Ratio NOT REPORTED Normal 9-20 [facility] Comment on above: Performed By: #### E RTPF, CONNER, LIP, LIVP, TEGCR ####[address] [address] Staging: NOT REPORTED Normal [facility] Comment on above: Performed By: #### E RTPF, CONNER, LIP, LIVP, TEGCR ####[place] [address] CBC with Diffon 01-31-2018 Abs. Basophil 0.00 k/uL Normal 0.0-0.2 [facility] Comment on above: Performed By: #### E RTPF, CONNER, LIP, LIVP, TEGCR ####[address] [address] Abs.Imm.Granulocyte 0.00 k/uL Normal 0.00-0.30 [facility] Comment on above: Performed By: #### E RTPF, CONNER, LIP, LIVP, TEGCR ####[address] [address] Abs.Neutrophil (Seg) 21.68 k/uL High 1.8-7.7 [facility] Comment on above: Performed By: #### E RTPF, CONNER, LIP, LIVP, TEGCR ####[address] [address] Basophils/100 WBC Auto (Bld) 0 % Normal 0-2 [facility] Comment on above: Performed By: #### E RTPF, CONNER, LIP, LIVP, TEGCR ####[address] [address] Eosinophils Auto #/vol (Bld) 0.25 10*3/uL Normal 0.0-0.4 [facility] Comment on above: Performed By: #### E RTPF, CONNER, LIP, LIVP, TEGCR ####[address] [address] Eosinophils/100 WBC Auto (Bld) 1 % Normal 1-4 [facility] Comment on above: Performed By: #### E RTPF, CONNER, LIP, LIVP, TEGCR ####[address] [address] Immature granulocytes #/vol (Bld) 0 % Normal 0 [facility] Comment on above: Performed By: #### E RTPF, CONNER, LIP, LIVP, TEGCR ####[address] [address] Lymphocytes Auto #/vol (Bld) 2.77 10*3/uL Normal 1.0-4.8 [facility] Comment on above: Performed By: #### E RTPF, CONNER, LIP, LIVP, TEGCR ####[address] [address] Lymphocytes/100 WBC Auto (Bld) 11 % Low 24-44 [facility] Comment on above: Performed By: #### E RTPF, CONNER, LIP, LIVP, TEGCR ####[address] [address] Monocytes Auto #/vol (Bld) 0.50 10*3/uL Normal 0.1-0.8 [facility] Comment on above: Performed By: #### E RTPF, CONNER, LIP, LIVP, TEGCR ####[address] [address] Monocytes/100 WBC Auto (Bld) 2 % Normal 1-7 [facility] Comment on above: Performed By: #### E RTPF, CONNER, LIP, LIVP, TEGCR ####[address] [address] Morphology Interp Eduard (Bld) MACROCYTOSIS PRESENT Normal [facility] Comment on above: Result Comment: ANIS OCYTOSIS PRESENT Performed By: #### E RTPF, CONNER, LIP, LIVP, TEGCR ####[address] [address] Neutrophil (Seg) 86 % High 36-66 [facility] Comment on above: Performed By: #### E RTPF, CONNER, LIP, LIVP, TEGCR ####[address] [address] Nucleated RBC/100 WBC Ratio (Bld) 1 per 100 WBC High 0 [facility] Comment on above: Performed By: #### E RTPF, CONNER, LIP, LIVP, TEGCR ####[address] [address] Erythrocyte distribution width Auto Ratio (RBC) 17.6 % High 11.8-14.4 [facility] Comment on above: Performed By: #### E RTPF, CONNER, LIP, LIVP, TEGCR ####[address] [address] Hematocrit Auto Volume Fraction (Bld) 30.9 % Low 40.7-50.3 [facility] Comment on above: Performed By: #### E RTPF, CONNER, LIP, LIVP, TEGCR ####[address] [address] Hemoglobin mass conc (Bld) 8.8 g/dL Low 13.0-17.0 [facility] Comment on above: Performed By: #### E RTPF, CONNER, LIP, LIVP, TEGCR ####[address] [address] MCH Auto Entitic mass (RBC) 29.9 pg Normal 25.2-33.5 [facility] Comment on above: Performed By: #### E RTPF, CONNER, LIP, LIVP, TEGCR ####[address] [address] MCHC Auto mass conc (RBC) 28.5 g/dL Normal 28.4-34.8 [facility] Comment on above: Performed By: #### E RTPF, CONNER, LIP, LIVP, TEGCR ####[address] [address] MCV Auto Entitic volume (RBC) 105.1 fL High 82.6-102.9 [facility] Comment on above: Performed By: #### E RTPF, CONNER, LIP, LIVP, TEGCR ####[address] [address] NRBC Automated 0.5 per 100 WBC High 0.0 [facility] Comment on above: Performed By: #### E RTPF, CONNER, LIP, LIVP, TEGCR ####[address] [address] Platelet mean volume Auto Entitic volume (Bld) 10.6 fL Normal 8.1-13.5 [facility] Comment on above: Performed By: #### E RTPF, CONNER, LIP, LIVP, TEGCR ####[address] [address] Platelets Auto #/vol (Bld) 852 10*3/uL High 138-453 [facility] Comment on above: Performed By: #### E RTPF, CONNER, LIP, LIVP, TEGCR ####[address] [address] RBC Auto #/vol (Bld) 2.94 10*6/uL Low 4.21-5.77 [facility] Comment on above: Performed By: #### E RTPF, CONNER, LIP, LIVP, TEGCR ####[address] [address] WBC Auto #/vol (Bld) 25.2 10*3/uL High 3.5-11.3 [facility] Comment on above: Performed By: #### E RTPF, CONNER, LIP, LIVP, TEGCR ####[address] [address] Auto Diff Performed NOT REPORTED Normal [facility] Comment on above: Performed By: #### E RTPF, CONNER, LIP, LIVP, TEGCR ####[address] [address] Platelets Auto #/vol (Bld) NOT REPORTED Normal [facility] Comment on above: Performed By: #### E RTPF, CONNER, LIP, LIVP, TEGCR ####[address] [address] RBC morphology finding Nom (Bld) NOT REPORTED Normal [facility] Comment on above: Performed By: #### E RTPF, CONNER, LIP, LIVP, TEGCR ####[address] [address] WBC Morphology NOT REPORTED Normal [facility] Comment on above: Performed By: #### E RTPF, CONENR, LIP, LIVP, TEGCR ####[address] [address] Magnesiumon 01-31-2018 Magnesium mass conc 2.7 mg/dL High 1.6-2.6 [facility] Comment on above: Performed By: #### E RTPF, CONNER, LIP, LIVP, TEGCR ####[address] [address] Phosphorus, Inorg.on 018 Phosphorus, Inorg. 2.7 mg/dL Normal 2.5-4.5 [facility] Comment on above: Performed By: #### E RTPF, CONNER, LIP, LIVP, TEGCR ####[address] [address] Urinalysis w/ Microon 2017 ----- Normal [facility] Comment on above: Performed By: #### E RTPF, CONNER, LIP, LIVP, TEGCR ####[address] [address] Acetoacetic Acid,Ur Negative Normal NEG [facility] Comment on above: Performed By: #### E RTPF, CONNER, LIP, LIVP, TEGCR ####[address] [address] Bilirubin, SemiQt,Ur Negative Normal NEG [facility] Comment on above: Performed By: #### E RTPF, CONNER, LIP, LIVP, TEGCR ####[address] [address] Color YELLOW Normal YEL [facility] Comment on above: Performed By: #### E RTPF, CONNER, LIP, LIVP, TEGCR ####[address] [address] Epithelial cells 0 TO 2 Normal 0-5 [facility] Comment on above: Performed By: #### E RTPF, CONNER, LIP, LIVP, TEGCR ####[address] [address] Glucose,Semi-qnt,Ur Negative Normal NEG [facility] Comment on above: Performed By: #### E RTPF, CONNER, LIP, LIVP, TEGCR ####[address] [address] Hemoglobin, Ur MODERATE Abnormal NEG [facility] Comment on above: Performed By: #### E RTPF, CONNER, LIP, LIVP, TEGCR ####[address] [address] Leuckocyte Esterase Negative Normal NEG [facility] Comment on above: Performed By: #### E RTPF, CONNER, LIP, LIVP, TEGCR ####[address] [address] Nitrite,Ur Negative Normal NEG [facility] Comment on above: Performed By: #### E RTPF, CONNER, LIP, LIVP, TEGCR ####[address] [address] PH,Ur 6.5 Normal 5.0-8.0 [facility] Comment on above: Performed By: #### E RTPF, CONNER, LIP, LIVP, TEGCR ####[address] [address] Protein mass conc 1+ Abnormal NEG [facility] Comment on above: Performed By: #### E RTPF, CONNER, LIP, LIVP, TEGCR ####[address] [address] RBC Test strip #/vol (U) 5 TO 10 Normal 0-4 [facility] Comment on above: Result Comment: Refe rence range defined for non-centrifuged specimen. Performed By: #### E RTPF, CONNER, LIP, LIVP, TEGCR ####[address] [address] Spec. [place],Ur 1.018 Normal 1.005-1.03 0 [facility] Comment on above: Performed By: #### E RTPF, CONNER, LIP, LIVP, TEGCR ####[address] [address] Turbidity CLEAR Normal CLEAR [facility] Comment on above: Performed By: #### E RTPF, CONNER, LIP, LIVP, TEGCR ####[address] [address] Urine WBC's 0 TO 2 Normal 0-5 [facility] Comment on above: Performed By: #### E RTPF, CONNER, LIP, LIVP, TEGCR ####[address] [address] Urobilinogen,Ur Normal Normal NORM [facility] Comment on above: Performed By: #### E RTPF, CONNER, LIP, LIVP, TEGCR ####[address] [address] Amorphous Sediment NOT REPORTED Normal NONE [facility] Comment on above: Performed By: #### E RTPF, CONNER, LIP, LIVP, TEGCR ####[address] [address] Bacteria NOT REPORTED Normal NONE [facility] Comment on above: Performed By: #### E RTPF, CONNER, LIP, LIVP, TEGCR ####[address] [address] Casts NOT REPORTED Normal 0-8 [facility] Comment on above: Performed By: #### E RTPF, CONNER, LIP, LIVP, TEGCR ####[address] [address] Crystals NOT REPORTED Normal NONE [facility] Comment on above: Performed By: #### E RTPF, CONNER, LIP, LIVP, TEGCR ####[address] [address] Epithelial, Renal NOT REPORTED Normal 0 [facility] Comment on above: Performed By: #### E RTPF, CONNER, LIP, LIVP, TEGCR ####[address] [address] Mucus Strands NOT REPORTED Normal [facility] Comment on above: Performed By: #### E RTPF, CONNER, LIP, LIVP, TEGCR ####[address] [address] Other Observations NOT REPORTED Normal NREQ [facility] Comment on above: Performed By: #### E RTPF, CONNER, LIP, LIVP, TEGCR ####[place] [address] Trichomonas NOT REPORTED Normal NONE [facility] Comment on above: Performed By: #### E RTPF, CONNER, LIP, LIVP, TEGCR ####[place] [address] Yeast NOT REPORTED Normal NONE [facility] Comment on above: Performed By: #### E RTPF, CONNER, LIP, LIVP, TEGCR ####[place] [address] CBC with Diffon 01-30-2018 Abs. Basophil 0.00 k/uL Normal 0.0-0.2 [facility] Comment on above: Performed By: #### E RTPF, CONNER, LIP, LIVP, TEGCR ####[place] [address] Abs.Imm.Granulocyte 0.22 k/uL Normal 0.00-0.30 [facility] Comment on above: Performed By: #### E RTPF, CONNER, LIP, LIVP, TEGCR ####[place] [address] Abs.Neutrophil (Seg) 17.57 k/uL High 1.8-7.7 [facility] Comment on above: Performed By: #### E RTPF, CONNER, LIP, LIVP, TEGCR ####[address] [address] Basophils/100 WBC Auto (Bld) 0 % Normal 0-2 [facility] Comment on above: Performed By: #### E RTPF, CONNER, LIP, LIVP, TEGCR ####[address] [address] Eosinophils Auto #/vol (Bld) 0.22 10*3/uL Normal 0.0-0.4 [facility] Comment on above: Performed By: #### E RTPF, CONNER, LIP, LIVP, TEGCR ####[address] [address] Eosinophils/100 WBC Auto (Bld) 1 % Normal 1-4 [facility] Comment on above: Performed By: #### E RTPF, CONNER, LIP, LIVP, TEGCR ####[address] [address] Immature granulocytes #/vol (Bld) 1 % High 0 [facility] Comment on above: Performed By: #### E RTPF, CONNER, LIP, LIVP, TEGCR ####[address] [address] Lymphocytes Auto #/vol (Bld) 2.17 10*3/uL Normal 1.0-4.8 [facility] Comment on above: Performed By: #### E RTPF, CONNER, LIP, LIVP, TEGCR ####[address] [address] Lymphocytes/100 WBC Auto (Bld) 10 % Low 24-44 [facility] Comment on above: Performed By: #### E RTPF, CONNER, LIP, LIVP, TEGCR ####[address] [address] Monocytes Auto #/vol (Bld) 1.52 10*3/uL High 0.1-0.8 [facility] Comment on above: Performed By: #### E RTPF, CONNER, LIP, LIVP, TEGCR ####[address] [address] Monocytes/100 WBC Auto (Bld) 7 % Normal 1-7 [facility] Comment on above: Performed By: #### E RTPF, CONNER, LIP, LIVP, TEGCR ####[address] [address] Morphology Interp Eduard (Bld) ANISOCYTOSIS PRESENT Normal [facility] Comment on above: Result Comment: INCR EASED BANDS PRESENT Performed By: #### E RTPF, CONNER, LIP, LIVP, TEGCR ####[address] [address] Neutrophil (Seg) 81 % High 36-66 [facility] Comment on above: Performed By: #### E RTPF, CONNER, LIP, LIVP, TEGCR ####[address] [address] Erythrocyte distribution width Auto Ratio (RBC) 17.1 % High 11.8-14.4 [facility] Comment on above: Performed By: #### E RTPF, CONNER, LIP, LIVP, TEGCR ####[address] [address] Hematocrit Auto Volume Fraction (Bld) 29.8 % Low 40.7-50.3 [facility] Comment on above: Performed By: #### E RTPF, CONNER, LIP, LIVP, TEGCR ####[address] [address] Hemoglobin mass conc (Bld) 8.9 g/dL Low 13.0-17.0 [facility] Comment on above: Performed By: #### E RTPF, CONNER, LIP, LIVP, TEGCR ####[address] [address] MCH Auto Entitic mass (RBC) 29.9 pg Normal 25.2-33.5 [facility] Comment on above: Performed By: #### E RTPF, CONNER, LIP, LIVP, TEGCR ####[address] [address] MCHC Auto mass conc (RBC) 29.9 g/dL Normal 28.4-34.8 [facility] Comment on above: Performed By: #### E RTPF, CONNER, LIP, LIVP, TEGCR ####[address] [address] MCV Auto Entitic volume (RBC) 100.0 fL Normal 82.6-102.9 [facility] Comment on above: Performed By: #### E RTPF, CONNER, LIP, LIVP, TEGCR ####[address] [address] NRBC Automated 0.1 per 100 WBC High 0.0 [facility] Comment on above: Performed By: #### E RTPF, CONNER, LIP, LIVP, TEGCR ####[address] [address] Platelet mean volume Auto Entitic volume (Bld) 10.5 fL Normal 8.1-13.5 [facility] Comment on above: Performed By: #### E RTPF, CONNER, LIP, LIVP, TEGCR ####[address] [address] Platelets Auto #/vol (Bld) 850 10*3/uL High 138-453 [facility] Comment on above: Performed By: #### E RTPF, CONNER, LIP, LIVP, TEGCR ####[address] [address] RBC Auto #/vol (Bld) 2.98 10*6/uL Low 4.21-5.77 [facility] Comment on above: Performed By: #### E RTPF, CONNER, LIP, LIVP, TEGCR ####[address] [address] WBC Auto #/vol (Bld) 21.7 10*3/uL High 3.5-11.3 [facility] Comment on above: Performed By: #### E RTPF, CONNER, LIP, LIVP, TEGCR ####[address] [address] Auto Diff Performed NOT REPORTED Normal [facility] Comment on above: Performed By: #### E RTPF, CONNER, LIP, LIVP, TEGCR ####[address] [address] Platelets Auto #/vol (Bld) NOT REPORTED Normal [facility] Comment on above: Performed By: #### E RTPF, CONNER, LIP, LIVP, TEGCR ####[address] [address] RBC morphology finding Nom (Bld) NOT REPORTED Normal [facility] Comment on above: Performed By: #### E RTPF, CONNER, LIP, LIVP, TEGCR ####[address] [address] WBC Morphology NOT REPORTED Normal [facility] Comment on above: Performed By: #### E RTPF, CONNER, LIP, LIVP, TEGCR ####[address] [id number] Comp Metabolic Profon 2017 (cont.) Normal [facility] Comment on above: Result Comment: Aver age GFR for 50-59 years old: 93 mL/min/1.73sq mChronic Kidney Disease: <60 mL/min/1.73sq mKidney failure: <15 mL/min/1.73sq meGFR calculated using average adult body mass. Additional eGFR calculator available at:http://www.Borderfree/multiple_crcl_2012.htm Performed By: #### E RTPF, CONNER, LIP, LIVP, TEGCR ####[address] [place] [address] Albumin mass conc 2.6 g/dL Low 3.5-5.2 [facility] Comment on above: Performed By: #### E RTPF, CONNER, LIP, LIVP, TEGCR ####[address] [place] [address] Albumin/Globulin mass ratio 0.6 {ratio} Low 1.0-2.5 [facility] Comment on above: Performed By: #### E RTPF, CONNER, LIP, LIVP, TEGCR ####[facility] [address] [place] [address] Alkaline Phos 76 U/L Normal 40-129 [facility] Comment on above: Performed By: #### E RTPF, CONNER, LIP, LIVP, TEGCR ####[facility] [address] [place] [address] ALT enzyme act/vol 21 U/L Normal 5-41 [facility] Comment on above: Performed By: #### E RTPF, CONNER, LIP, LIVP, TEGCR ####[facility] [address] [place] [address] Anion gap 3 molar conc 10 mmol/L Normal 9-17 [facility] Comment on above: Performed By: #### E RTPF, CONNER, LIP, LIVP, TEGCR ####[address] [place] [address] AST enzyme act/vol 51 U/L High <40 [facility] Comment on above: Performed By: #### E RTPF, CONNER, LIP, LIVP, TEGCR ####[facility] [place] [address] Bilirubin Ql (U) 0.98 mg/dL Normal 0.3-1.2 [facility] Comment on above: Performed By: #### E RTPF, CONNER, LIP, LIVP, TEGCR ####[address] [address] Calcium mass conc 8.1 mg/dL Low 8.6-10.4 [facility] Comment on above: Performed By: #### E RTPF, CONNER, LIP, LIVP, TEGCR ####[address] [address] Chloride molar conc 114 mmol/L High 98-107 [facility] Comment on above: Performed By: #### E RTPF, CONNER, LIP, LIVP, TEGCR ####[address] [place] [address] CO2 molar conc 27 mmol/L Normal 20-31 [facility] Comment on above: Performed By: #### E RTPF, CONNER, LIP, LIVP, TEGCR ####[address] [place] [address] Creatinine mass conc 1.47 mg/dL High 0.70-1.20 [facility] Comment on above: Performed By: #### E RTPF, CONNER, LIP, LIVP, TEGCR ####[facility] [place] [address] GFR, Amer 60 mL/min Low >60 [facility] Comment on above: Performed By: #### E RTPF, CONNER, LIP, LIVP, TEGCR ####[address] [place] [address] GFR,non Amer 49 mL/min Low >60 [facility] Comment on above: Performed By: #### E RTPF, CONNER, LIP, LIVP, TEGCR ####[address] [address] Glucose mass conc 153 mg/dL High 70-99 [facility] Comment on above: Performed By: #### E RTPF, CNONER, LIP, LIVP, TEGCR ####[address] [address] Potassium molar conc 3.2 mmol/L Low 3.7-5.3 [facility] Comment on above: Performed By: #### E RTPF, CONNER, LIP, LIVP, TEGCR ####[facility] [place] [address] Protein mass conc 6.7 g/dL Normal 6.4-8.3 [facility] Comment on above: Performed By: #### E RTPF, CONNER, LIP, LIVP, TEGCR ####[facility] [place] [address] Sodium molar conc 151 mmol/L High 135-144 [facility] Comment on above: Performed By: #### E RTPF, CONNER, LIP, LIVP, TEGCR ####[facility] [place] [address] Urea nitrogen mass conc 23 mg/dL High 6-20 [facility] Comment on above: Performed By: #### E RTPF, CONNER, LIP, LIVP, TEGCR ####[address] [id number] BUN/CRE Ratio NOT REPORTED Normal 01-21 [facility] Comment on above: Performed By: #### E RTPF, CONNER, LIP, LIVP, TEGCR ####[address] [place] [address] Staging: NOT REPORTED Normal [facility] Comment on above: Performed By: #### E RTPF, CONNER, LIP, LIVP, TEGCR ####[facility] [address] [place] [address] Magnesiumon 01-30-2018 Magnesium mass conc 3.0 mg/dL High 1.6-2.6 [facility] Comment on above: Performed By: #### E RTPF, CONNER, LIP, LIVP, TEGCR ####[facility] [place], [place] [id number] Phosphorus, Inorg.on 018 Phosphorus, Inorg. 1.9 mg/dL Low 2.5-4.5 [facility] Comment on above: Performed By: #### E RTPF, CONNER, LIP, LIVP, TEGCR ####[address] [id number] XR CHEST PORTABLEon 01-31-20 18 XR CHEST PORTABLE EXAMINATION:SINGLE X RAY VIEW OF THE CHEST01/30/2018 8:26 amCOMPARISON:01/29/2018HISTOR Y:ORDERING SYSTEM PROVIDED HISTORY: tachypneaTECHNOLOGIST PROVIDED HISTORY:tachypneaFINDINGS:The heart and mediastinal structures are stable. NG tube and right upperextremity PICC line are in place. Bibasilar atelectasis is present withsmall pleural effusions.IMPRESSION: Small pleural effusions with bibasilar atelectasisInterpreted by:NADEGE Rosalesigned by:Lauro Hood MD01/30/18inal result Normal [facility] Ammoniaon 01-29-2018 Ammonia mass conc (P) 33 umol/L Normal 16-60 [facility] Comment on above: Performed By: #### E RTPF, CONNER, LIP, LIVP, TEGCR ####[facility] [address] [place] [address] Basic Metabolic Profon 01-29 (cont.) Normal [facility] Comment on above: Result Comment: Aver age GFR for 50-59 years old: 93 mL/min/1.73sq mChronic Kidney Disease: <60 mL/min/1.73sq mKidney failure: <15 mL/min/1.73sq meGFR calculated using average adult body mass. Additional eGFR calculator available at:http://www.Borderfree/[employer]_crcl_2011.htm Performed By: #### E RTPF, CONNER, LIP, LIVP, TEGCR ####[address] [address] Anion gap 3 molar conc 13 mmol/L Normal 9-17 [facility] Comment on above: Performed By: #### E RTPF, CONNER, LIP, LIVP, TEGCR ####[address] [address] Calcium mass conc 7.6 mg/dL Low 8.6-10.4 [facility] Comment on above: Performed By: #### E RTPF, CONNER, LIP, LIVP, TEGCR ####[facility] [address] [place] [address] Chloride molar conc 110 mmol/L High 98-107 [facility] Comment on above: Performed By: #### E RTPF, CONNER, LIP, LIVP, TEGCR ####[facility] [address] [place] [address] CO2 molar conc 28 mmol/L Normal 20-31 [facility] Comment on above: Performed By: #### E RTPF, CONNER, LIP, LIVP, TEGCR ####[facility] [address] [place] [address], [place] [address] Creatinine mass conc 1.42 mg/dL High 0.70-1.20 [facility] Comment on above: Performed By: #### E RTPF, CONNER, LIP, LIVP, TEGCR ####[facility] [place] [address] GFR, Amer >60 Normal >60 [facility] Comment on above: Performed By: #### E RTPF, CONNER, LIP, LIVP, TEGCR ####[facility] [place] [address] GFR,non Amer 51 mL/min Low >60 [facility] Comment on above: Performed By: #### E RTPF, CONNER, LIP, LIVP, TEGCR ####[address] [address] Glucose mass conc 131 mg/dL High 70-99 [facility] Comment on above: Performed By: #### E RTPF, CONNER, LIP, LIVP, TEGCR ####[facility] [place] [address] Potassium molar conc 3.9 mmol/L Normal 3.7-5.3 [facility] Comment on above: Result Comment: SPEC IMEN SLIGHTLY HEMOLYZED, RESULTS MAY BE ADVERSELY AFFECTED. Performed By: #### E RTPF, CONNER, LIP, LIVP, TEGCR ####[facility] [address] [place] [address] Sodium molar conc 151 mmol/L High 135-144 [facility] Comment on above: Performed By: #### E RTPF, CONNER, LIP, LIVP, TEGCR ####[facility] [place] [address] Urea nitrogen mass conc 32 mg/dL High 6-20 [facility] Comment on above: Performed By: #### E RTPF, CONNER, LIP, LIVP, TEGCR ####[address] [place] [address] BUN/CRE Ratio NOT REPORTED Normal 9-20 [facility] Comment on above: Performed By: #### E RTPF, CONNER, LIP, LIVP, TEGCR ####[address] [address] Staging: NOT REPORTED Normal [facility] Comment on above: Performed By: #### E RTPF, CONNER, LIP, LIVP, TEGCR ####[address] [address] Brain Natri. Peptideon 01-29 Natriuretic peptide B mass conc (Bld) Normal [facility] Comment on above: Result Comment: Pro- BNP Reference Range:Rule Out: <300Grey Zone: Age <50 300-450 Age 50-75 300-900 Age >75 300-1800Usually represents mild to moderate HF but other cardiopulmonary causes cannot be ruled out.Rule In: Age <50 >450 Age 50-75 >900 Age >75 >1800 Performed By: #### E RTPF, CONNER, LIP, LIVP, TEGCR ####[address] [address] Natriuretic peptide B mass conc (Bld) 1400 pg/mL High <300 [facility] Comment on above: Result Comment: Pro- BNP results cannot be compared to BNP results. Performed By: #### E RTPF, CONNER, LIP, LIVP, TEGCR ####[address] [address] CBC with Diffon 01-29-2018 Abs. Basophil 0.00 k/uL Normal 0.0-0.2 [facility] Comment on above: Performed By: #### E RTPF, CONNER, LIP, LIVP, TEGCR ####[address] [address] Abs.Imm.Granulocyte 0.00 k/uL Normal 0.00-0.30 [facility] Comment on above: Performed By: #### E RTPF, CONNER, LIP, LIVP, TEGCR ####[address] [address] Abs.Neutrophil (Seg) 20.91 k/uL High 1.8-7.7 [facility] Comment on above: Performed By: #### E RTPF, CONNRE, LIP, LIVP, TEGCR ####[address] [address] Basophils/100 WBC Auto (Bld) 0 % Normal 0-2 [facility] Comment on above: Performed By: #### E RTPF, CONNER, LIP, LIVP, TEGCR ####[address] [address] Eosinophils Auto #/vol (Bld) 0.25 10*3/uL Normal 0.0-0.4 [facility] Comment on above: Performed By: #### E RTPF, CONNER, LIP, LIVP, TEGCR ####[address] [address] Eosinophils/100 WBC Auto (Bld) 1 % Normal 1-4 [facility] Comment on above: Performed By: #### E RTPF, CONNER, LIP, LIVP, TEGCR ####[address] [address] Immature granulocytes #/vol (Bld) 0 % Normal 0 [facility] Comment on above: Performed By: #### E RTPF, CONNER, LIP, LIVP, TEGCR ####[address] [address] Lymphocytes Auto #/vol (Bld) 2.21 10*3/uL Normal 1.0-4.8 [facility] Comment on above: Performed By: #### E RTPF, CONNER, LIP, LIVP, TEGCR ####[address] [address] Lymphocytes/100 WBC Auto (Bld) 9 % Low 24-44 [facility] Comment on above: Performed By: #### E RTPF, CONNER, LIP, LIVP, TEGCR ####[address] [address] Monocytes Auto #/vol (Bld) 1.23 10*3/uL High 0.1-0.8 [facility] Comment on above: Performed By: #### E RTPF, CONNER, LIP, LIVP, TEGCR ####[address] [address] Monocytes/100 WBC Auto (Bld) 5 % Normal 1-7 [facility] Comment on above: Performed By: #### E RTPF, CONNER, LIP, LIVP, TEGCR ####[address] [address] Morphology Interp Eduard (Bld) ANISOCYTOSIS PRESENT Normal [facility] Comment on above: Result Comment: TOXI C GRANULATION PRESENT Performed By: #### E RTPF, CONNER, LIP, LIVP, TEGCR ####[address] [address] Neutrophil (Seg) 85 % High 36-66 [facility] Comment on above: Performed By: #### E RTPF, CONNER, LIP, LIVP, TEGCR ####[address] [address] Nucleated RBC/100 WBC Ratio (Bld) 1 per 100 WBC High 0 [facility] Comment on above: Performed By: #### E RTPF, CONNER, LIP, LIVP, TEGCR ####[address] [address] Erythrocyte distribution width Auto Ratio (RBC) 17.1 % High 11.8-14.4 [facility] Comment on above: Performed By: #### E RTPF, CONNER, LIP, LIVP, TEGCR ####[address] [address] Hematocrit Auto Volume Fraction (Bld) 27.6 % Low 40.7-50.3 [facility] Comment on above: Performed By: #### E RTPF, CONNER, LIP, LIVP, TEGCR ####[address] [address] Hemoglobin mass conc (Bld) 8.4 g/dL Low 13.0-17.0 [facility] Comment on above: Performed By: #### E RTPF, CONNER, LIP, LIVP, TEGCR ####[address] [address] MCH Auto Entitic mass (RBC) 30.3 pg Normal 25.2-33.5 [facility] Comment on above: Performed By: #### E RTPF, CONNER, LIP, LIVP, TEGCR ####[address] [address] MCHC Auto mass conc (RBC) 30.4 g/dL Normal 28.4-34.8 [facility] Comment on above: Performed By: #### E RTPF, CONNER, LIP, LIVP, TEGCR ####[address] [address] MCV Auto Entitic volume (RBC) 99.6 fL Normal 82.6-102.9 [facility] Comment on above: Performed By: #### E RTPF, CONNER, LIP, LIVP, TEGCR ####[address] [address] NRBC Automated 0.0 per 100 WBC Normal 0.0 [facility] Comment on above: Performed By: #### E RTPF, CONNER, LIP, LIVP, TEGCR ####[address] [address] Platelet mean volume Auto Entitic volume (Bld) 10.9 fL Normal 8.1-13.5 [facility] Comment on above: Performed By: #### E RTPF, CONNER, LIP, LIVP, TEGCR ####[address] [address] Platelets Auto #/vol (Bld) 738 10*3/uL High 138-453 [facility] Comment on above: Performed By: #### E RTPF, CONNER, LIP, LIVP, TEGCR ####[address] [address] RBC Auto #/vol (Bld) 2.77 10*6/uL Low 4.21-5.77 [facility] Comment on above: Performed By: #### E RTPF, CONNER, LIP, LIVP, TEGCR ####[address] [address] WBC Auto #/vol (Bld) 24.6 10*3/uL High 3.5-11.3 [facility] Comment on above: Performed By: #### E RTPF, CONNER, LIP, LIVP, TEGCR ####[address] [address] Auto Diff Performed NOT REPORTED Normal [facility] Comment on above: Performed By: #### E RTPF, CONNER, LIP, LIVP, TEGCR ####[address] [address] Platelets Auto #/vol (Bld) NOT REPORTED Normal [facility] Comment on above: Performed By: #### E RTPF, CONNER, LIP, LIVP, TEGCR ####[facility] [address] [place], [place] [id number] RBC morphology finding Nom (Bld) NOT REPORTED Normal [facility] Comment on above: Performed By: #### E RTPF, CONNER, LIP, LIVP, TEGCR ####[facility] [address] [place], [place] [id number] WBC Morphology NOT REPORTED Normal [facility] Comment on above: Performed By: #### E RTPF, CONNER, LIP, LIVP, TEGCR ####[facility] [address] [place], [place] [id number] CT ABDOMEN PELVIS W IV CONTR Ольга [...] likely indicates reflux.Interpreted by:NADEGE Escalanteigned by:Cassie Torres MD01/29/18inal result Normal [facility] Triglycerideson 01-29-2018 Triglyceride mass conc 147 mg/dL Normal <150 [facility] Comment on above: Result Comment: Trig lyceride Guidelines: <150 Desirable 150- 199 Borderline 200-499 High >499 Very high Based on AHA Guidelines for fasting triglyceride, February 2012. Performed By: #### E RTPF, CONNER, LIP, LIVP, TEGCR ####[facility] [address] [place] [address] [id number] Triglyceride mass conc 149 mg/dL Normal <150 [facility] Comment on above: Result Comment: Trig lyceride Guidelines: <150 Desirable 150- 199 Borderline 200-499 High >499 Very high Based on AHA Guidelines for fasting triglyceride, February 2012. Performed By: #### E RTPF, CONNER, LIP, LIVP, TEGCR ####[facility] [address] [place], [place] [id number] XR CHEST PORTABLEon 01-30-20 18 XR CHEST [...] by:NADEGE Braunigned by:Cassie Albarado MD01/29/18Final result Normal [facility] Basic Metabolic Profon 01-28 (cont.) Normal [facility] Comment on above: Result Comment: Aver age GFR for 50-59 years old: 93 mL/min/1.73sq mChronic Kidney Disease: <60 mL/min/1.73sq mKidney failure: <15 mL/min/1.73sq meGFR calculated using average adult body mass. Additional eGFR calculator available at:http://www.[employer]/multiple_crcl_2012.htm Performed By: #### E RTPF, CONNER, LIP, LIVP, TEGCR ####[facility] [address] [place] [address] Anion gap 3 molar conc 12 mmol/L Normal 9-17 [facility] Comment on above: Performed By: #### E RTPF, CONNER, LIP, LIVP, TEGCR ####[facility] [address] [place] [address] Calcium mass conc 7.7 mg/dL Low 8.6-10.4 [facility] Comment on above: Performed By: #### E RTPF, CONNER, LIP, LIVP, TEGCR ####[facility] [address] [place] [address] Chloride molar conc 105 mmol/L Normal 98-107 [facility] Comment on above: Performed By: #### E RTPF, CONNER, LIP, LIVP, TEGCR ####[facility] [address] [place] [address] CO2 molar conc 29 mmol/L Normal 20-31 [facility] Comment on above: Performed By: #### E RTPF, CONNER, LIP, LIVP, TEGCR ####[facility] [address] [place] [address] Creatinine mass conc 1.67 mg/dL High 0.70-1.20 [facility] Comment on above: Performed By: #### E RTPF, CONNER, LIP, LIVP, TEGCR ####[facility] [address] [place] [address] GFR, Amer 52 mL/min Low >60 [facility] Comment on above: Performed By: #### E RTPF, CONNER, LIP, LIVP, TEGCR ####[address] [place] [address] GFR,non Amer 43 mL/min Low >60 [facility] Comment on above: Performed By: #### E RTPF, CONNER, LIP, LIVP, TEGCR ####[address] [address] Glucose mass conc 130 mg/dL High 70-99 [facility] Comment on above: Performed By: #### E RTPF, CONNER, LIP, LIVP, TEGCR ####[facility] [place] [address] Potassium molar conc 3.4 mmol/L Low 3.7-5.3 [facility] Comment on above: Performed By: #### E RTPF, CONNER, LIP, LIVP, TEGCR ####[facility] [address] [place] [address] Sodium molar conc 146 mmol/L High 135-144 [facility] Comment on above: Performed By: #### E RTPF, CONNER, LIP, LIVP, TEGCR ####[address] [place] [address] Urea nitrogen mass conc 35 mg/dL High 6-20 [facility] Comment on above: Performed By: #### E RTPF, CONNER, LIP, LIVP, TEGCR ####[address] [place] [address] BUN/CRE Ratio NOT REPORTED Normal -20 [facility] Comment on above: Performed By: #### E RTPF, CONNER, LIP, LIVP, TEGCR ####[address] [address] Staging: NOT REPORTED Normal [facility] Comment on above: Performed By: #### E RTPF, CONNER, LIP, LIVP, TEGCR ####[address] [address] (cont.) Normal [facility] Comment on above: Result Comment: Aver age GFR for 50-59 years old: 93 mL/min/1.73sq mChronic Kidney Disease: <60 mL/min/1.73sq mKidney failure: <15 mL/min/1.73sq meGFR calculated using average adult body mass. Additional eGFR calculator available at:http://www.[employer]/multiple_crcl_2012.htm Performed By: #### E RTPF, CONNER, LIP, LIVP, TEGCR ####[address] [address] Anion gap 3 molar conc 11 mmol/L Normal -17 [facility] Comment on above: Performed By: #### E RTPF, CONNER, LIP, LIVP, TEGCR ####[address] [place] [address] Calcium mass conc 8.2 mg/dL Low 8.6-10.4 [facility] Comment on above: Performed By: #### E RTPF, CONNER, LIP, LIVP, TEGCR ####[address] [place] [address] Chloride molar conc 99 mmol/L Normal 98-107 [facility] Comment on above: Performed By: #### E RTPF, CONNER, LIP, LIVP, TEGCR ####[address] [address] CO2 molar conc 32 mmol/L High 20-31 [facility] Comment on above: Performed By: #### E RTPF, CONNER, LIP, LIVP, TEGCR ####[address] [address] Creatinine mass conc 1.81 mg/dL High 0.70-1.20 [facility] Comment on above: Performed By: #### E RTPF, CONNER, LIP, LIVP, TEGCR ####[address] [address] GFR, Amer 47 mL/min Low >60 [facility] Comment on above: Performed By: #### E RTPF, CONNER, LIP, LIVP, TEGCR ####[address] [address] GFR,non Amer 39 mL/min Low >60 [facility] Comment on above: Performed By: #### E RTPF, CONNER, LIP, LIVP, TEGCR ####[address] [address] Glucose mass conc 160 mg/dL High 70-99 [facility] Comment on above: Performed By: #### E RTPF, CONNER, LIP, LIVP, TEGCR ####[address] [address] Potassium molar conc 4.7 mmol/L Normal 3.7-5.3 [facility] Comment on above: Performed By: #### E RTPF, CONNER, LIP, LIVP, TEGCR ####[address] [address] Sodium molar conc 142 mmol/L Normal 135-144 [facility] Comment on above: Performed By: #### E RTPF, CONNER, LIP, LIVP, TEGCR ####[facility] [address] [place] [address] Urea nitrogen mass conc 39 mg/dL High -20 [facility] Comment on above: Performed By: #### E RTPF, CONNER, LIP, LIVP, TEGCR ####[address] [address] BUN/CRE Ratio NOT REPORTED Normal - [facility] Comment on above: Performed By: #### E RTPF, CONNER, LIP, LIVP, TEGCR ####[address] [address] Staging: NOT REPORTED Normal [facility] Comment on above: Performed By: #### E RTPF, CONNER, LIP, LIVP, TEGCR ####[address] [address] C-Reactive Proteinon 018 CRP mass conc 320.1 mg/L High 0.0-5.0 [facility] Comment on above: Result Comment: ADDE D ON Performed By: #### E RTPF, CONNER, LIP, LIVP, TEGCR ####[address] [address] CBC with Diffon 01-28-2018 Abs. Basophil 0.00 k/uL Normal 0.0-0.2 [facility] Comment on above: Performed By: #### E RTPF, CONNER, LIP, LIVP, TEGCR ####[address] [place] [address] Abs.Imm.Granulocyte 0.00 k/uL Normal 0.00-0.30 [facility] Comment on above: Performed By: #### E RTPF, CONNER, LIP, LIVP, TEGCR ####[address] [address] Abs.Neutrophil (Seg) 29.16 k/uL High 1.8-7.7 [facility] Comment on above: Performed By: #### E RTPF, CONNER, LIP, LIVP, TEGCR ####[address] [address] Basophils/100 WBC Auto (Bld) 0 % Normal 0-2 [facility] Comment on above: Performed By: #### E RTPF, CONNER, LIP, LIVP, TEGCR ####[place] [address] Eosinophils Auto #/vol (Bld) 0.00 10*3/uL Normal 0.0-0.4 [facility] Comment on above: Performed By: #### E RTPF, CONNER, LIP, LIVP, TEGCR ####[place] [address] Eosinophils/100 WBC Auto (Bld) 0 % Low 1-4 [facility] Comment on above: Performed By: #### E RTPF, CONNER, LIP, LIVP, TEGCR ####[address] [address] Immature granulocytes #/vol (Bld) 0 % Normal 0 [facility] Comment on above: Performed By: #### E RTPF, CONNER, LIP, LIVP, TEGCR ####[place] [address] Lymphocytes Auto #/vol (Bld) 1.62 10*3/uL Normal 1.0-4.8 [facility] Comment on above: Performed By: #### E RTPF, CONNER, LIP, LIVP, TEGCR ####[address] [address] Lymphocytes/100 WBC Auto (Bld) 5 % Low 24-44 [facility] Comment on above: Performed By: #### E RTPF, CONNER, LIP, LIVP, TEGCR ####[address] [address] Monocytes Auto #/vol (Bld) 1.62 10*3/uL High 0.1-0.8 [facility] Comment on above: Performed By: #### E RTPF, CONNER, LIP, LIVP, TEGCR ####[address] [address] Monocytes/100 WBC Auto (Bld) 5 % Normal 1-7 [facility] Comment on above: Performed By: #### E RTPF, CONNER, LIP, LIVP, TEGCR ####[address] [address] Morphology Interp Eduard (Bld) ANISOCYTOSIS PRESENT Normal [facility] Comment on above: Result Comment: INCR EASED BANDS PRESENT Performed By: #### E RTPF, CONNER, LIP, LIVP, TEGCR ####[address] [address] Neutrophil (Seg) 90 % High 36-66 [facility] Comment on above: Performed By: #### E RTPF, CONNER, LIP, LIVP, TEGCR ####[address] [address] WBC Auto #/vol (Bld) 32.4 10*3/uL Critically high 3.5-11.3 [facility] Comment on above: Result Comment: TEST CONFIRMED Performed By: #### E RTPF, CONNER, LIP, LIVP, TEGCR ####[address] [address] Erythrocyte distribution width Auto Ratio (RBC) 16.6 % High 11.8-14.4 [facility] Comment on above: Performed By: #### E RTPF, CONNER, LIP, LIVP, TEGCR ####[address] [address] Hematocrit Auto Volume Fraction (Bld) 30.3 % Low 40.7-50.3 [facility] Comment on above: Performed By: #### E RTPF, CONNER, LIP, LIVP, TEGCR ####[address] [address] Hemoglobin mass conc (Bld) 9.6 g/dL Low 13.0-17.0 [facility] Comment on above: Performed By: #### E RTPF, CONNER, LIP, LIVP, TEGCR ####[address] [address] MCH Auto Entitic mass (RBC) 30.6 pg Normal 25.2-33.5 [facility] Comment on above: Performed By: #### E RTPF, CONNER, LIP, LIVP, TEGCR ####[address] [address] MCHC Auto mass conc (RBC) 31.7 g/dL Normal 28.4-34.8 [facility] Comment on above: Performed By: #### E RTPF, CONNER, LIP, LIVP, TEGCR ####[address] [address] MCV Auto Entitic volume (RBC) 96.5 fL Normal 82.6-102.9 [facility] Comment on above: Performed By: #### E RTPF, CONNER, LIP, LIVP, TEGCR ####[address] [address] NRBC Automated 0.0 per 100 WBC Normal 0.0 [facility] Comment on above: Performed By: #### E RTPF, CONNER, LIP, LIVP, TEGCR ####[address] [address] Platelet mean volume Auto Entitic volume (Bld) 10.9 fL Normal 8.1-13.5 [facility] Comment on above: Performed By: #### E RTPF, CONNER, LIP, LIVP, TEGCR ####[address] [address] Platelets Auto #/vol (Bld) 642 10*3/uL High 138-453 [facility] Comment on above: Performed By: #### E RTPF, CONNER, LIP, LIVP, TEGCR ####[address] [address] RBC Auto #/vol (Bld) 3.14 10*6/uL Low 4.21-5.77 [facility] Comment on above: Performed By: #### E RTPF, CONNER, LIP, LIVP, TEGCR ####[address] [address] Auto Diff Performed NOT REPORTED Normal [facility] Comment on above: Performed By: #### E RTPF, CONNER, LIP, LIVP, TEGCR ####[address] [address] Platelets Auto #/vol (Bld) NOT REPORTED Normal [facility] Comment on above: Performed By: #### E RTPF, CONNER, LIP, LIVP, TEGCR ####[address] [address] RBC morphology finding Nom (Bld) NOT REPORTED Normal [facility] Comment on above: Performed By: #### E RTPF, CONNER, LIP, LIVP, TEGCR ####[address] [id number] WBC Morphology NOT REPORTED Normal [facility] Comment on above: Performed By: #### E RTPF, CONNER, LIP, LIVP, TEGCR ####[facility] [place] [address] CT ABDOMEN PELVIS W IV CONTR Ольга [...] No clear evidence for pneumatosis.Interpreted by:NADEGE Dormanigned by:Hudosn Anaya MD01/27/18inal result Normal [facility] Liver Profileon 01-28-2018 Albumin mass conc 2.5 g/dL Low 3.5-5.2 [facility] Comment on above: Performed By: #### E RTPF, CONNER, LIP, LIVP, TEGCR ####[facility] [facility] [place] [address] Albumin/Globulin mass ratio 0.7 {ratio} Low 1.0-2.5 [facility] Comment on above: Performed By: #### E RTPF, CONNER, LIP, LIVP, TEGCR ####[facility] [place] [address] Alkaline Phos 77 U/L Normal 40-129 [facility] Comment on above: Performed By: #### E RTPF, CONNER, LIP, LIVP, TEGCR ####[facility] [address] [place] [address] ALT enzyme act/vol 25 U/L Normal 5-41 [facility] Comment on above: Performed By: #### E RTPF, CONNER, LIP, LIVP, TEGCR ####[facility] [address] [place] [address] AST enzyme act/vol 55 U/L High <40 [facility] Comment on above: Performed By: #### E RTPF, CONNER, LIP, LIVP, TEGCR ####[facility] [address] [place] [address] Bilirubin Ql (U) 1.32 mg/dL High 0.3-1.2 [facility] Comment on above: Performed By: #### E RTPF, CONNER, LIP, LIVP, TEGCR ####[address] [place] [address] Bilirubin, Indirect 0.59 mg/dL Normal 0.00-1.00 [facility] Comment on above: Performed By: #### E RTPF, CONNER, LIP, LIVP, TEGCR ####[facility] [place] [address] Bilirubin.direct mass conc 0.73 mg/dL High <0.31 [facility] Comment on above: Performed By: #### E RTPF, CONNER, LIP, LIVP, TEGCR ####[facility] [address] [place] [address] Protein mass conc 6.3 g/dL Low 6.4-8.3 [facility] Comment on above: Performed By: #### E RTPF, CONNER, LIP, LIVP, TEGCR ####[address] [place] [address] Globulin Calculated mass conc (S) NOT REPORTED Normal 1.5-3.8 [facility] Comment on above: Performed By: #### E RTPF, CONNER, LIP, LIVP, TEGCR ####[facility] [place] [address] Magnesiumon 01-28-2018 Magnesium mass conc 2.7 mg/dL High 1.6-2.6 [facility] Comment on above: Performed By: #### E RTPF, CONNER, LIP, LIVP, TEGCR ####[facility] [place] [address] Phosphorus, Inorg.on 018 Phosphorus, Inorg. 3.6 mg/dL Normal 2.5-4.5 [facility] Comment on above: Performed By: #### E RTPF, CONNER, LIP, LIVP, TEGCR ####[facility] [place] [address] Prealbuminon 01-28-2018 Prealbumin mass conc 4.8 mg/dL Low 20-40 [facility] Comment on above: Performed By: #### E RTPF, CONNER, LIP, LIVP, TEGCR ####[address] [place] [address] TSH w/reflex to FT4on 2017 Thyrotropin Qn 2.70 m[IU]/L Normal 0.30-5.00 [facility] Comment on above: Performed By: #### E RTPF, CONNER, LIP, LIVP, TEGCR ####[facility] [address] [place] [address] Transferrinon 01-28-2018 Transferrin mass conc 115 mg/dL Low 200-360 [facility] Comment on above: Performed By: #### E RTPF, CONNER, LIP, LIVP, TEGCR ####[address] [address] XR CHEST PORTABLEon 01-29-20 18 XR CHEST [...] Please correlate clinically.Interpreted by:NADEGE Lancasterigned by:Hebert Best MD18Final result Normal [facility] Basic Metabolic Profon 01-27 (cont.) Normal [facility] Comment on above: Result Comment: Aver age GFR for 50-59 years old: 93 mL/min/1.73sq mChronic Kidney Disease: <60 mL/min/1.73sq mKidney failure: <15 mL/min/1.73sq meGFR calculated using average adult body mass. Additional eGFR calculator available at:http://www.Borderfree/multiple_crcl_2012.htm Performed By: #### E RTPF, CONNER, LIP, LIVP, TEGCR ####[address] [address] Anion gap 3 molar conc 12 mmol/L Normal 9-17 [facility] Comment on above: Performed By: #### E RTPF, CONNER, LIP, LIVP, TEGCR ####[address] [address] Calcium mass conc 8.9 mg/dL Normal 8.6-10.4 [facility] Comment on above: Performed By: #### E RTPF, CONNER, LIP, LIVP, TEGCR ####[address] [address] Chloride molar conc 100 mmol/L Normal 98-107 [facility] Comment on above: Performed By: #### E RTPF, CONNER, LIP, LIVP, TEGCR ####[address] [place] [address] CO2 molar conc 31 mmol/L Normal 20-31 [facility] Comment on above: Performed By: #### E RTPF, CONNER, LIP, LIVP, TEGCR ####[address] [place] [address] Creatinine mass conc 1.26 mg/dL High 0.70-1.20 [facility] Comment on above: Performed By: #### E RTPF, CONNER, LIP, LIVP, TEGCR ####[address] [address] GFR, Amer >60 Normal >60 [facility] Comment on above: Performed By: #### E RTPF, CONNER, LIP, LIVP, TEGCR ####[facility] [address] [place] [address] GFR,non Amer 59 mL/min Low >60 [facility] Comment on above: Performed By: #### E RTPF, CONNER, LIP, LIVP, TEGCR ####[facility] [address] [place] [address] Glucose mass conc 138 mg/dL High 70-99 [facility] Comment on above: Performed By: #### E RTPF, CONNER, LIP, LIVP, TEGCR ####[address] [address] Potassium molar conc 3.9 mmol/L Normal 3.7-5.3 [facility] Comment on above: Performed By: #### E RTPF, CONNER, LIP, LIVP, TEGCR ####[facility] [place] [address] Sodium molar conc 143 mmol/L Normal 135-144 [facility] Comment on above: Performed By: #### E RTPF, CONNER, LIP, LIVP, TEGCR ####[address] [address] Urea nitrogen mass conc 27 mg/dL High 6-20 [facility] Comment on above: Performed By: #### E RTPF, CONNER, LIP, LIVP, TEGCR ####[address] [address] BUN/CRE Ratio NOT REPORTED Normal 9-20 [facility] Comment on above: Performed By: #### E RTPF, CONNER, LIP, LIVP, TEGCR ####[address] [address] Staging: NOT REPORTED Normal [facility] Comment on above: Performed By: #### E RTPF, CONNER, LIP, LIVP, TEGCR ####[place] [address] CBC with Diffon 01-27-2018 Abs. Basophil 0.00 k/uL Normal 0.0-0.2 [facility] Comment on above: Performed By: #### E RTPF, CONNER, LIP, LIVP, TEGCR ####[address] [address] Abs.Imm.Granulocyte 0.24 k/uL Normal 0.00-0.30 [facility] Comment on above: Performed By: #### E RTPF, CONNER, LIP, LIVP, TEGCR ####[place] [address] Abs.Neutrophil (Seg) 19.29 k/uL High 1.8-7.7 [facility] Comment on above: Performed By: #### E RTPF, CONNER, LIP, LIVP, TEGCR ####[address] [address] Basophils/100 WBC Auto (Bld) 0 % Normal 0-2 [facility] Comment on above: Performed By: #### E RTPF, CONNER, LIP, LIVP, TEGCR ####[address] [address] Eosinophils Auto #/vol (Bld) 0.96 10*3/uL High 0.0-0.4 [facility] Comment on above: Performed By: #### E RTPF, CONNER, LIP, LIVP, TEGCR ####[address] [address] Eosinophils/100 WBC Auto (Bld) 4 % Normal 1-4 [facility] Comment on above: Performed By: #### E RTPF, CONNER, LIP, LIVP, TEGCR ####[place] [address] Immature granulocytes #/vol (Bld) 1 % High 0 [facility] Comment on above: Performed By: #### E RTPF, CONNER, LIP, LIVP, TEGCR ####[address] [address] Lymphocytes Auto #/vol (Bld) 2.65 10*3/uL Normal 1.0-4.8 [facility] Comment on above: Performed By: #### E RTPF, CONNER, LIP, LIVP, TEGCR ####[address] [address] Lymphocytes/100 WBC Auto (Bld) 11 % Low 24-44 [facility] Comment on above: Performed By: #### E RTPF, CONNER, LIP, LIVP, TEGCR ####[address] [address] Monocytes Auto #/vol (Bld) 0.96 10*3/uL High 0.1-0.8 [facility] Comment on above: Performed By: #### E RTPF, CONNER, LIP, LIVP, TEGCR ####[address] [address] Monocytes/100 WBC Auto (Bld) 4 % Normal 1-7 [facility] Comment on above: Performed By: #### E RTPF, CONNER, LIP, LIVP, TEGCR ####[address] [address] Morphology Interp Eduard (Bld) ANISOCYTOSIS PRESENT Normal [facility] Comment on above: Result Comment: INCR EASED BANDS PRESENTTOXIC GRANULATION PRESENT Performed By: #### E RTPF, CONNER, LIP, LIVP, TEGCR ####[address] [place] [address] Neutrophil (Seg) 80 % High 36-66 [facility] Comment on above: Performed By: #### E RTPF, CONNER, LIP, LIVP, TEGCR ####[address] [address] Nucleated RBC/100 WBC Ratio (Bld) 1 per 100 WBC High 0 [facility] Comment on above: Performed By: #### E RTPF, CONNER, LIP, LIVP, TEGCR ####[address] [address] Erythrocyte distribution width Auto Ratio (RBC) 16.1 % High 11.8-14.4 [facility] Comment on above: Performed By: #### E RTPF, CONNER, LIP, LIVP, TEGCR ####[address] [address] Hematocrit Auto Volume Fraction (Bld) 31.8 % Low 40.7-50.3 [facility] Comment on above: Performed By: #### E RTPF, CONNER, LIP, LIVP, TEGCR ####[address] [address] Hemoglobin mass conc (Bld) 10.1 g/dL Low 13.0-17.0 [facility] Comment on above: Performed By: #### E RTPF, CONNER, LIP, LIVP, TEGCR ####[address] [address] MCH Auto Entitic mass (RBC) 30.5 pg Normal 25.2-33.5 [facility] Comment on above: Performed By: #### E RTPF, CONNER, LIP, LIVP, TEGCR ####[address] [address] MCHC Auto mass conc (RBC) 31.8 g/dL Normal 28.4-34.8 [facility] Comment on above: Performed By: #### E RTPF, CONNER, LIP, LIVP, TEGCR ####[address] [address] MCV Auto Entitic volume (RBC) 96.1 fL Normal 82.6-102.9 [facility] Comment on above: Performed By: #### E RTPF, CONNER, LIP, LIVP, TEGCR ####[address] [address] NRBC Automated 0.1 per 100 WBC High 0.0 [facility] Comment on above: Performed By: #### E RTPF, CONNER, LIP, LIVP, TEGCR ####[address] [address] Platelet mean volume Auto Entitic volume (Bld) 11.0 fL Normal 8.1-13.5 [facility] Comment on above: Performed By: #### E RTPF, CONNER, LIP, LIVP, TEGCR ####[address] [address] Platelets Auto #/vol (Bld) 488 10*3/uL High 138-453 [facility] Comment on above: Performed By: #### E RTPF, CONNER, LIP, LIVP, TEGCR ####[address] [address] RBC Auto #/vol (Bld) 3.31 10*6/uL Low 4.21-5.77 [facility] Comment on above: Performed By: #### E RTPF, CONNER, LIP, LIVP, TEGCR ####[address] [address] WBC Auto #/vol (Bld) 24.1 10*3/uL High 3.5-11.3 [facility] Comment on above: Performed By: #### E RTPF, CONNER, LIP, LIVP, TEGCR ####[address] [address] Auto Diff Performed NOT REPORTED Normal [facility] Comment on above: Performed By: #### E RTPF, CONNER, LIP, LIVP, TEGCR ####[address] [address] Platelets Auto #/vol (Bld) NOT REPORTED Normal [facility] Comment on above: Performed By: #### E RTPF, CONNER, LIP, LIVP, TEGCR ####[address] [address] RBC morphology finding Nom (Bld) NOT REPORTED Normal [facility] Comment on above: Performed By: #### E RTPF, CONNER, LIP, LIVP, TEGCR ####[address] [address] WBC Morphology NOT REPORTED Normal [facility] Comment on above: Performed By: #### E RTPF, CONNER, LIP, LIVP, TEGCR ####[address] [address] Magnesiumon 01-27-2018 Magnesium mass conc 2.6 mg/dL Normal 1.6-2.6 [facility] Comment on above: Performed By: #### E RTPF, CONNER, LIP, LIVP, TEGCR ####[address] [address] Phosphorus, Inorg.on 018 Phosphorus, Inorg. 4.5 mg/dL Normal 2.5-4.5 [facility] Comment on above: Performed By: #### E RTPF, CONNER, LIP, LIVP, TEGCR ####[address] [address] Vancomycin,Randomon 01-28-20 18 Vancomycin 11.1 ug/mL Normal [facility] Comment on above: Result Comment: High er trough serum vancomycin concentrations of 15-20 ug/mL are recommended for complicated infections such as bacteremia, endocarditis, osteomyelitis, meningitis, and hospital acquired pneumonia. Performed By: #### E RTPF, CONNER, LIP, LIVP, TEGCR ####[address] [address] Date last dose, NOT REPORTED Normal [facility] Comment on above: Performed By: #### E RTPF, CONNER, LIP, LIVP, TEGCR ####[address] [address] Dose amount, NOT REPORTED Normal [facility] Comment on above: Performed By: #### E RTPF, CONNER, LIP, LIVP, TEGCR ####[address] [address] Time last dose, NOT REPORTED Normal [facility] Comment on above: Performed By: #### E RTPF, CONNER, LIP, LIVP, TEGCR ####[address] [address] XR ABDOMEN (KUB) (SINGLE AP VIEW)on 01-27-2018 [...] by:NADEGE Gabrieligned by:Molly Moreno MD01/27/18inal result Normal [facility] XR ABDOMEN (KUB) (SINGLE AP VIEW) [...] be communicated to a licensed caregiver.Interpreted by:Cecile García DOSigned by:Cecile García, DO01/27/18inal result Normal [facility] XR LUMBAR SPINE (2-3 VIEWS)o n [...] consistent with ileus.Interpreted by:NADEGE Burksigned by:Fidel Marley MD01/27/inal result Normal [facility] Basic Metabolic Profon 01-26 (cont.) Normal [facility] Comment on above: Result Comment: Aver age GFR for 50-59 years old: 93 mL/min/1.73sq mChronic Kidney Disease: <60 mL/min/1.73sq mKidney failure: <15 mL/min/1.73sq meGFR calculated using average adult body mass. Additional eGFR calculator available at:http://www.Borderfree/multiple_crcl_2012.htm Performed By: #### E RTPF, CONNER, LIP, LIVP, TEGCR ####[facility] TechnologyZ[address]ks[address] [place] [address] Anion gap 3 molar conc 13 mmol/L Normal 9-17 [facility] Comment on above: Performed By: #### E RTPF, CONNER, LIP, LIVP, TEGCR ####[facility] TechnologyUyfiz[address]ev[address] [place] [address] Calcium mass conc 8.3 mg/dL Low 8.6-10.4 [facility] Comment on above: Performed By: #### E RTPF, CONNER, LIP, LIVP, TEGCR ####[facility] TechnologyOq[address]piegltlj[address] [place] [address] Chloride molar conc 95 mmol/L Low 98-107 [facility] Comment on above: Performed By: #### E RTPF, CONNER, LIP, LIVP, TEGCR ####[facility] [place] [address] CO2 molar conc 31 mmol/L Normal 20-31 [facility] Comment on above: Performed By: #### E RTPF, CONNER, LIP, LIVP, TEGCR ####[facility] [place] [address] Creatinine mass conc 1.14 mg/dL Normal 0.70-1.20 [facility] Comment on above: Performed By: #### E RTPF, CONNER, LIP, LIVP, TEGCR ####[address] [address] GFR, Amer >60 Normal >60 [facility] Comment on above: Performed By: #### E RTPF, CONNER, LIP, LIVP, TEGCR ####[address] [address] GFR,non Amer >60 Normal >60 [facility] Comment on above: Performed By: #### E RTPF, CONNER, LIP, LIVP, TEGCR ####[address] [address] Glucose mass conc 128 mg/dL High 70-99 [facility] Comment on above: Performed By: #### E RTPF, CONNER, LIP, LIVP, TEGCR ####[address] [address] Potassium molar conc 3.2 mmol/L Low 3.7-5.3 [facility] Comment on above: Performed By: #### E RTPF, CONNER, LIP, LIVP, TEGCR ####[address] [place] [address] Sodium molar conc 139 mmol/L Normal 135-144 [facility] Comment on above: Performed By: #### E RTPF, CONNER, LIP, LIVP, TEGCR ####[facility] [address] [place] [address] Urea nitrogen mass conc 21 mg/dL High -20 [facility] Comment on above: Performed By: #### E RTPF, CONNER, LIP, LIVP, TEGCR ####[address] [place] [address] BUN/CRE Ratio NOT REPORTED Normal - [facility] Comment on above: Performed By: #### E RTPF, CONNER, LIP, LIVP, TEGCR ####[address] [place] [address] Staging: NOT REPORTED Normal [facility] Comment on above: Performed By: #### E RTPF, CONNER, LIP, LIVP, TEGCR ####[address] [address] Brain Natri. Peptideon 01-26 Natriuretic peptide B mass conc (Bld) 2216 pg/mL High <300 [facility] Comment on above: Result Comment: Pro- BNP results cannot be compared to BNP results. Performed By: #### E RTPF, CONNER, LIP, LIVP, TEGCR ####[address] [address] Natriuretic peptide B mass conc (Bld) Normal [facility] Comment on above: Result Comment: Pro- BNP Reference Range:Rule Out: <300Grey Zone: Age <50 300-450 Age 50-75 300-900 Age >75 300-1800Usually represents mild to moderate HF but other cardiopulmonary causes cannot be ruled out.Rule In: Age <50 >450 Age 50-75 >900 Age >75 >1800 Performed By: #### E RTPF, CONNER, LIP, LIVP, TEGCR ####[address] [place] [address] CBC with Diffon 01-26-2018 Abs. Basophil 0.00 k/uL Normal 0.0-0.2 [facility] Comment on above: Performed By: #### E RTPF, CONNER, LIP, LIVP, TEGCR ####[place] [address] Abs.Imm.Granulocyte 0.00 k/uL Normal 0.00-0.30 [facility] Comment on above: Performed By: #### E RTPF, CONNER, LIP, LIVP, TEGCR ####[place] [address] Abs.Neutrophil (Seg) 21.60 k/uL High 1.8-7.7 [facility] Comment on above: Performed By: #### E RTPF, CONNER, LIP, LIVP, TEGCR ####[place] [address] Basophils/100 WBC Auto (Bld) 0 % Normal 0-2 [facility] Comment on above: Performed By: #### E RTPF, CONNER, LIP, LIVP, TEGCR ####[place] [address] Eosinophils Auto #/vol (Bld) 0.00 10*3/uL Normal 0.0-0.4 [facility] Comment on above: Performed By: #### E RTPF, CONNER, LIP, LIVP, TEGCR ####[place] [address] Eosinophils/100 WBC Auto (Bld) 0 % Low 1-4 [facility] Comment on above: Performed By: #### E RTPF, CONNER, LIP, LIVP, TEGCR ####[address] [address] Immature granulocytes #/vol (Bld) 0 % Normal 0 [facility] Comment on above: Performed By: #### E RTPF, CONNER, LIP, LIVP, TEGCR ####[address] [address] Lymphocytes Auto #/vol (Bld) 3.17 10*3/uL Normal 1.0-4.8 [facility] Comment on above: Performed By: #### E RTPF, CONNER, LIP, LIVP, TEGCR ####[address] [address] Lymphocytes/100 WBC Auto (Bld) 11 % Low 24-44 [facility] Comment on above: Performed By: #### E RTPF, CONNER, LIP, LIVP, TEGCR ####[address] [address] Monocytes Auto #/vol (Bld) 4.03 10*3/uL High 0.1-0.8 [facility] Comment on above: Performed By: #### E RTPF, CONNER, LIP, LIVP, TEGCR ####[address] [address] Monocytes/100 WBC Auto (Bld) 14 % High 1-7 [facility] Comment on above: Performed By: #### E RTPF, CONNER, LIP, LIVP, TEGCR ####[address] [address] Morphology Interp Eduard (Bld) ANISOCYTOSIS PRESENT Normal [facility] Comment on above: Result Comment: INCR EASED BANDS PRESENTTOXIC GRANULATION PRESENT Performed By: #### E RTPF, CONNER, LIP, LIVP, TEGCR ####[address] [address] Neutrophil (Seg) 75 % High 36-66 [facility] Comment on above: Performed By: #### E RTPF, CONNER, LIP, LIVP, TEGCR ####[address] [address] Erythrocyte distribution width Auto Ratio (RBC) 16.2 % High 11.8-14.4 [facility] Comment on above: Result Comment: ADDE D ON Performed By: #### E RTPF, CONNER, LIP, LIVP, TEGCR ####[address] [place] [address] Hematocrit Auto Volume Fraction (Bld) 31.2 % Low 40.7-50.3 [facility] Comment on above: Result Comment: ADDE D ON Performed By: #### E RTPF, CONNER, LIP, LIVP, TEGCR ####[address] [address] Hemoglobin mass conc (Bld) 10.1 g/dL Low 13.0-17.0 [facility] Comment on above: Result Comment: ADDE D ON Performed By: #### E RTPF, CONNER, LIP, LIVP, TEGCR ####[address] [address] MCH Auto Entitic mass (RBC) 30.9 pg Normal 25.2-33.5 [facility] Comment on above: Result Comment: ADDE D ON Performed By: #### E RTPF, CONNER, LIP, LIVP, TEGCR ####[address] [address] MCHC Auto mass conc (RBC) 32.4 g/dL Normal 28.4-34.8 [facility] Comment on above: Result Comment: ADDE D ON Performed By: #### E RTPF, CONNER, LIP, LIVP, TEGCR ####[address] [address] MCV Auto Entitic volume (RBC) 95.4 fL Normal 82.6-102.9 [facility] Comment on above: Result Comment: ADDE D ON Performed By: #### E RTPF, CONNER, LIP, LIVP, TEGCR ####[address] [address] NRBC Automated 0.1 per 100 WBC High 0.0 [facility] Comment on above: Result Comment: ADDE D ON Performed By: #### E RTPF, CONNER, LIP, LIVP, TEGCR ####[address] [address] Platelet mean volume Auto Entitic volume (Bld) 11.4 fL Normal 8.1-13.5 [facility] Comment on above: Result Comment: ADDE D ON Performed By: #### E RTPF, CONNER, LIP, LIVP, TEGCR ####[address] [address] Platelets Auto #/vol (Bld) 328 10*3/uL Normal 138-453 [facility] Comment on above: Result Comment: ADDE D ON Performed By: #### E RTPF, CONNER, LIP, LIVP, TEGCR ####[address] [address] RBC Auto #/vol (Bld) 3.27 10*6/uL Low 4.21-5.77 [facility] Comment on above: Result Comment: ADDE D ON Performed By: #### E RTPF, CONNER, LIP, LIVP, TEGCR ####[address] [address] WBC Auto #/vol (Bld) 28.8 10*3/uL High 3.5-11.3 [facility] Comment on above: Result Comment: ADDE D ON Performed By: #### E RTPF, CONNER, LIP, LIVP, TEGCR ####[address] [address] Auto Diff Performed NOT REPORTED Normal [facility] Comment on above: Performed By: #### E RTPF, CONNER, LIP, LIVP, TEGCR ####[address] [address] Platelets Auto #/vol (Bld) NOT REPORTED Normal [facility] Comment on above: Performed By: #### E RTPF, CONNER, LIP, LIVP, TEGCR ####[address] [address] RBC morphology finding Nom (Bld) NOT REPORTED Normal [facility] Comment on above: Performed By: #### E RTPF, CONNER, LIP, LIVP, TEGCR ####[address] [address] WBC Morphology NOT REPORTED Normal [facility] Comment on above: Performed By: #### E RTPF, CONNER, LIP, LIVP, TEGCR ####[address] [address] Calcium, Ionicon 01-26-2018 Calcium mass conc 1.22 mmol/L Normal 1.13-1.33 [facility] Comment on above: Performed By: #### E RTPF, CONNER, LIP, LIVP, TEGCR ####[address] [address] Calcium mass conc 1.04 mmol/L Low 1.13-1.33 [facility] Comment on above: Performed By: #### E RTPF, CONNER, LIP, LIVP, TEGCR ####[address] [address] K (Potassium)on 01-26-2018 Potassium molar conc 3.7 mmol/L Normal 3.7-5.3 [facility] Comment on above: Performed By: #### E RTPF, CONNER, LIP, LIVP, TEGCR ####[address] [id number] Potassium molar conc 3.2 mmol/L Low 3.7-5.3 [facility] Comment on above: Performed By: #### E RTPF, CONNER, LIP, LIVP, TEGCR ####[address] [address] Potassium molar conc 3.3 mmol/L Low 3.7-5.3 [facility] Comment on above: Performed By: #### E RTPF, CONNER, LIP, LIVP, TEGCR ####[address] [address] Magnesiumon 01-26-2018 Magnesium mass conc 2.2 mg/dL Normal 1.6-2.6 [facility] Comment on above: Performed By: #### E RTPF, CONNER, LIP, LIVP, TEGCR ####[address] [address] Phosphorus, Inorg.on 018 Phosphorus, Inorg. 3.8 mg/dL Normal 2.5-4.5 [facility] Comment on above: Performed By: #### E RTPF, CONNER, LIP, LIVP, TEGCR ####[address] [address] Vancomycin Troughon 01-27-20 18 Vancomycin Trough 25.3 ug/mL Critically high 10.0-20.0 [facility] Comment on above: Result Comment: High er trough serum vancomycin concentrations of 15-20 ug/mL are recommended for complicated infections such as bacteremia, endocarditis, osteomyelitis, meningitis, and hospital acquired pneumonia.ADDED ON Performed By: #### E RTPF, CONNER, LIP, LIVP, TEGCR ####[address] [address] Date last dose, .BLOOD Normal [facility] Comment on above: Performed By: #### E RTPF, CONNER, LIP, LIVP, TEGCR ####[facility] [address] [place] [address] Dose amount, .BLOOD Normal [facility] Comment on above: Performed By: #### E RTPF, CONNER, LIP, LIVP, TEGCR ####[facility] [address] [place] [address] Time last dose, .BLOOD Normal [facility] Comment on above: Performed By: #### E RTPF, CONNER, LIP, LIVP, TEGCR ####[facility] [address] [place] [address] XR ABDOMEN (KUB) (SINGLE AP VIEW)on 01-26-2018 [...] of the stomach.Interpreted by:NADEGE Burksigned by:Fidel Marley MD01/26/18inal result Normal [facility] XR CHEST PORTABLEon 01-27-20 18 XR CHEST PORTABLE EXAMINATION:SINGLE X RAY VIEW OF THE CHEST01/26/2018 5:46 amCOMPARISON:01/25/2018HISTOR Y:ORDERING SYSTEM PROVIDED HISTORY: comparisonTECHNOLOGIST PROVIDED HISTORY:comparisonFINDINGS:Mi ld cardiomegaly. Increased pulmonary vascular congestion and interstitialedema. Increasing although small bilateral pleural effusions. Nopneumothorax. Basilar atelectasis. No focal consolidation.IMPRESSION: Increasing pulmonary edema and pleural effusions.Interpreted by:NADEGE Wootenigned by:Gabino Suero MDinal result Normal [facility] Basic Metabolic Profon 01-25 Creatinine mass conc 0.72 mg/dL Normal 0.70-1.20 [facility] Comment on above: Result Comment: ICTE LOUIE SPECIMEN Performed By: #### E RTPF, CONNER, LIP, LIVP, TEGCR ####[facility] [place] [address] GFR, Amer >60 Normal >60 [facility] Comment on above: Performed By: #### E RTPF, CONNER, LIP, LIVP, TEGCR ####[facility] [place] [address] GFR,non Amer >60 Normal >60 [facility] Comment on above: Performed By: #### E RTPF, CONNER, LIP, LIVP, TEGCR ####[address] [address] (cont.) Normal [facility] Comment on above: Result Comment: Aver age GFR for 50-59 years old: 93 mL/min/1.73sq mChronic Kidney Disease: <60 mL/min/1.73sq mKidney failure: <15 mL/min/1.73sq meGFR calculated using average adult body mass. Additional eGFR calculator available at:http://www.[employer].Peer5/multiple_crcl_2012.htm Performed By: #### E RTPF, CONNER, LIP, LIVP, TEGCR ####[address] [place] [address] Anion gap 3 molar conc 14 mmol/L Normal 9-17 [facility] Comment on above: Performed By: #### E RTPF, CONNER, LIP, LIVP, TEGCR ####[facility] [address] [place] [address] Calcium mass conc 8.6 mg/dL Normal 8.6-10.4 [facility] Comment on above: Performed By: #### E RTPF, CONNER, LIP, LIVP, TEGCR ####[facility] [place] [address] Chloride molar conc 97 mmol/L Low 98-107 [facility] Comment on above: Performed By: #### E RTPF, CONNER, LIP, LIVP, TEGCR ####[address] [place] [address] CO2 molar conc 24 mmol/L Normal 20-31 [facility] Comment on above: Performed By: #### E RTPF, CONNER, LIP, LIVP, TEGCR ####[address] [place] [address] Glucose mass conc 113 mg/dL High 70-99 [facility] Comment on above: Performed By: #### E RTPF, CONNER, LIP, LIVP, TEGCR ####[facility] [place] [address] Potassium molar conc 3.3 mmol/L Low 3.7-5.3 [facility] Comment on above: Performed By: #### E RTPF, CONNER, LIP, LIVP, TEGCR ####[facility] [place] [address] Sodium molar conc 135 mmol/L Normal 135-144 [facility] Comment on above: Performed By: #### E RTPF, CONNER, LIP, LIVP, TEGCR ####[facility] [address] [place] [address] Urea nitrogen mass conc 14 mg/dL Normal 6-20 [facility] Comment on above: Performed By: #### E RTPF, CONNER, LIP, LIVP, TEGCR ####[facility] [place] [address] BUN/CRE Ratio NOT REPORTED Normal 9-20 [facility] Comment on above: Performed By: #### E RTPF, CONNER, LIP, LIVP, TEGCR ####[place] [address] Staging: NOT REPORTED Normal [facility] Comment on above: Performed By: #### E RTPF, CONNER, LIP, LIVP, TEGCR ####[place] [address] CBC with Diffon 01-25-2018 Abs. Basophil 0.00 k/uL Normal 0.0-0.2 [facility] Comment on above: Performed By: #### E RTPF, CONNER, LIP, LIVP, TEGCR ####[place] [address] Abs.Imm.Granulocyte 1.00 k/uL High 0.00-0.30 [facility] Comment on above: Performed By: #### E RTPF, CONNER, LIP, LIVP, TEGCR ####[place] [address] Abs.Neutrophil (Seg) 15.00 k/uL High 1.8-7.7 [facility] Comment on above: Performed By: #### E RTPF, CONNER, LIP, LIVP, TEGCR ####[place] [address] Basophils/100 WBC Auto (Bld) 0 % Normal 0-2 [facility] Comment on above: Performed By: #### E RTPF, CONNER, LIP, LIVP, TEGCR ####[address] [address] Eosinophils Auto #/vol (Bld) 0.20 10*3/uL Normal 0.0-0.4 [facility] Comment on above: Performed By: #### E RTPF, CONNER, LIP, LIVP, TEGCR ####[address] [place] [address] Eosinophils/100 WBC Auto (Bld) 1 % Normal 1-4 [facility] Comment on above: Performed By: #### E RTPF, CONNER, LIP, LIVP, TEGCR ####[address] [address] Immature granulocytes #/vol (Bld) 5 % High 0 [facility] Comment on above: Performed By: #### E RTPF, CONNER, LIP, LIVP, TEGCR ####[address] [address] Lymphocytes Auto #/vol (Bld) 1.20 10*3/uL Normal 1.0-4.8 [facility] Comment on above: Performed By: #### E RTPF, CONNER, LIP, LIVP, TEGCR ####[address] [address] Lymphocytes/100 WBC Auto (Bld) 6 % Low 24-44 [facility] Comment on above: Performed By: #### E RTPF, CONNER, LIP, LIVP, TEGCR ####[address] [address] Monocytes Auto #/vol (Bld) 2.60 10*3/uL High 0.1-0.8 [facility] Comment on above: Performed By: #### E RTPF, CONNER, LIP, LIVP, TEGCR ####[address] [address] Monocytes/100 WBC Auto (Bld) 13 % High 1-7 [facility] Comment on above: Performed By: #### E RTPF, CONNER, LIP, LIVP, TEGCR ####[address] [address] Morphology Interp Eduard (Bld) INCREASED BANDS PRESENT Normal [facility] Comment on above: Result Comment: ANIS OCYTOSIS PRESENTTOXIC GRANULATION PRESENT Performed By: #### E RTPF, CONNER, LIP, LIVP, TEGCR ####[address] [address] Neutrophil (Seg) 75 % High 36-66 [facility] Comment on above: Performed By: #### E RTPF, CONNER, LIP, LIVP, TEGCR ####[address] [address] NRBC Automated 0.1 per 100 WBC High 0.0 [facility] Comment on above: Performed By: #### E RTPF, CONNER, LIP, LIVP, TEGCR ####[address] [address] Platelet mean volume Auto Entitic volume (Bld) 11.5 fL Normal 8.1-13.5 [facility] Comment on above: Performed By: #### E RTPF, CONNER, LIP, LIVP, TEGCR ####[address] [address] Platelets Auto #/vol (Bld) 216 10*3/uL Normal 138-453 [facility] Comment on above: Performed By: #### E RTPF, CONNER, LIP, LIVP, TEGCR ####[address] [address] WBC Auto #/vol (Bld) 20.0 10*3/uL High 3.5-11.3 [facility] Comment on above: Performed By: #### E RTPF, CONNER, LIP, LIVP, TEGCR ####[address] [address] Erythrocyte distribution width Auto Ratio (RBC) 15.7 % High 11.8-14.4 [facility] Comment on above: Performed By: #### E RTPF, CONNER, LIP, LIVP, TEGCR ####[address] [address] Hematocrit Auto Volume Fraction (Bld) 33.8 % Low 40.7-50.3 [facility] Comment on above: Performed By: #### E RTPF, CONNER, LIP, LIVP, TEGCR ####[address] [address] Hemoglobin mass conc (Bld) 11.3 g/dL Low 13.0-17.0 [facility] Comment on above: Performed By: #### E RTPF, CONNER, LIP, LIVP, TEGCR ####[address] [address] MCH Auto Entitic mass (RBC) 30.9 pg Normal 25.2-33.5 [facility] Comment on above: Performed By: #### E RTPF, CONNER, LIP, LIVP, TEGCR ####[address] [address] MCHC Auto mass conc (RBC) 33.4 g/dL Normal 28.4-34.8 [facility] Comment on above: Performed By: #### E RTPF, CONNER, LIP, LIVP, TEGCR ####[address] [address] MCV Auto Entitic volume (RBC) 92.3 fL Normal 82.6-102.9 [facility] Comment on above: Performed By: #### E RTPF, CONNER, LIP, LIVP, TEGCR ####[address] [address] RBC Auto #/vol (Bld) 3.66 10*6/uL Low 4.21-5.77 [facility] Comment on above: Performed By: #### E RTPF, CONNER, LIP, LIVP, TEGCR ####[address] [address] Auto Diff Performed NOT REPORTED Normal [facility] Comment on above: Performed By: #### E RTPF, CONENR, LIP, LIVP, TEGCR ####[address] [address] Platelets Auto #/vol (Bld) NOT REPORTED Normal [facility] Comment on above: Performed By: #### E RTPF, CONNER, LIP, LIVP, TEGCR ####[address] [address] RBC morphology finding Nom (Bld) NOT REPORTED Normal [facility] Comment on above: Performed By: #### E RTPF, CONNER, LIP, LIVP, TEGCR ####[address] [address] WBC Morphology NOT REPORTED Normal [facility] Comment on above: Performed By: #### E RTPF, CONNER, LIP, LIVP, TEGCR ####[address] [address] [address] ABDOMEN PELVIS W IV CONTR Ольга [...] and partial ileocolectomy.Interpreted by:NADEGE Dormanigned by:Hudson Anaya MD01/25/18Final result Normal [facility] Calcium, Ionicon 01-25-2018 Calcium mass conc 1.09 mmol/L Low 1.13-1.33 [facility] Comment on above: Performed By: #### O HP, IOCAL ####[facility] [address] [place] [address] K (Potassium)on 01-25-2018 Potassium molar conc 3.4 mmol/L Low 3.7-5.3 [facility] Comment on above: Performed By: #### E RTPF, CONNER, LIP, LIVP, TEGCR ####[facility] [address] [place] [address] Potassium molar conc 3.3 mmol/L Low 3.7-5.3 [facility] Comment on above: Performed By: #### O HP, IOCAL ####[facility] [address] [place] [address] Magnesiumon 01-25-2018 Magnesium mass conc 2.1 mg/dL Normal 1.6-2.6 [facility] Comment on above: Performed By: #### E RTPF, CONNER, LIP, LIVP, TEGCR ####[address] [place] [address] Phosphorus, Inorg.on 018 Phosphorus, Inorg. 3.0 mg/dL Normal 2.5-4.5 [facility] Comment on above: Performed By: #### E RTPF, CONNER, LIP, LIVP, TEGCR ####[facility] [address] [place] [address] Vancomycin Troughon 01-26-20 18 Vancomycin Trough 19.2 ug/mL Normal 10.0-20.0 [facility] Comment on above: Result Comment: High er trough serum vancomycin concentrations of 15-20 ug/mL are recommended for complicated infections such as bacteremia, endocarditis, osteomyelitis, meningitis, and hospital acquired pneumonia. Performed By: #### E RTPF, CONNER, LIP, LIVP, TEGCR ####[facility] [address] [place] [address] Date last dose, NOT REPORTED Normal [facility] Comment on above: Performed By: #### E RTPF, CONNER, LIP, LIVP, TEGCR ####[address] [address] Dose amount, NOT REPORTED Normal [facility] Comment on above: Performed By: #### E RTPF, CONNER, LIP, LIVP, TEGCR ####[address] [address] Time last dose, NOT REPORTED Normal [facility] Comment on above: Performed By: #### E RTPF, CONNER, LIP, LIVP, TEGCR ####[address] [address] XR CHEST PORTABLEon 01-26-20 18 XR CHEST PORTABLE EXAMINATION:SINGLE X RAY VIEW OF THE CHEST01/25/2018 10:00 amCOMPARISON:January 24, 2018HISTORY:ORDERING SYSTEM PROVIDED HISTORY: comparisonTECHNOLOGIST PROVIDED HISTORY:comparisonFINDINGS:En teric tube extends beyond the gastroesophageal junction.Slightly improved bilateral lung opacities.Cardiomegaly. Mild pulmonary edema.IMPRESSION: Slightly improved bilateral lung opacities. Likely decreased pleuraleffusions and atelectasis.Enteric tube extends beyond the gastroesophageal junction.Interpreted by:NADEGE Escalanteigned by:Cassie Torres MD01/25/18inal result Normal [facility] Basic Metabolic Profon 01-24 Potassium molar conc 2.9 mmol/L Critically low 3.7-5.3 [facility] Comment on above: Performed By: #### O HP, IOCAL ####[facility] [address] [place], [place] [id number] (cont.) Normal [facility] Comment on above: Result Comment: Aver age GFR for 50-59 years old: 93 mL/min/1.73sq mChronic Kidney Disease: <60 mL/min/1.73sq mKidney failure: <15 mL/min/1.73sq meGFR calculated using average adult body mass. Additional eGFR calculator available at:http://www.[employer].Peer5/multiple_crcl_2012.htm Performed By: #### O HP, IOCAL ####[facility] [address] [place], [place] [id number] Anion gap 3 molar conc 9 mmol/L Normal 9-17 [facility] Comment on above: Performed By: #### O HP, IOCAL ####[facility] [address] [place], [place] [address] Calcium mass conc 8.1 mg/dL Low 8.6-10.4 [facility] Comment on above: Performed By: #### O HP, IOCAL ####[facility] [address] [place], [place] 3705[address] Chloride molar conc 95 mmol/L Low 98-107 [facility] Comment on above: Performed By: #### O HP, IOCAL ####[facility] [address] [place] [address] CO2 molar conc 29 mmol/L Normal 20-31 [facility] Comment on above: Performed By: #### O HP, IOCAL ####[facility] [address]xwgjfhfp2630 [place] [address] Creatinine mass conc 0.55 mg/dL Low 0.70-1.20 [facility] Comment on above: Performed By: #### O HP, IOCAL ####[facility] [address] [place] [address] GFR, Amer >60 Normal >60 [facility] Comment on above: Performed By: #### O HP, IOCAL ####[facility] [address] [place] [address] GFR,non Amer >60 Normal >60 [facility] Comment on above: Performed By: #### O HP, IOCAL ####[facility] [address] [place] [address] Glucose mass conc 130 mg/dL High 70-99 [facility] Comment on above: Performed By: #### O HP, IOCAL ####[facility] [address] [place] [address] Sodium molar conc 133 mmol/L Low 135-144 [facility] Comment on above: Performed By: #### O HP, IOCAL ####[facility] [address]ch[address]164 [place] [address] Urea nitrogen mass conc 12 mg/dL Normal 6-20 [facility] Comment on above: Performed By: #### O HP, IOCAL ####[facility] Gmdldafjpveg3805 [place] [address] BUN/CRE Ratio NOT REPORTED Normal 9-20 [facility] Comment on above: Performed By: #### O HP, IOCAL ####[address] [address] Staging: NOT REPORTED Normal [facility] Comment on above: Performed By: #### O HP, IOCAL ####[address] [place] [address] CBCon 01-24-2018 Erythrocyte distribution width Auto Ratio (RBC) 15.8 % High 11.8-14.4 [facility] Comment on above: Performed By: #### O HP, IOCAL ####[facility] [address] [place] [address] Hematocrit Auto Volume Fraction (Bld) 30.8 % Low 40.7-50.3 [facility] Comment on above: Performed By: #### O HP, IOCAL ####[address] [address] Hemoglobin mass conc (Bld) 10.2 g/dL Low 13.0-17.0 [facility] Comment on above: Performed By: #### O HP, IOCAL ####[address] [place] [address] MCH Auto Entitic mass (RBC) 30.4 pg Normal 25.2-33.5 [facility] Comment on above: Performed By: #### O HP, IOCAL ####[facility] [address] [place] [address] MCHC Auto mass conc (RBC) 33.1 g/dL Normal 28.4-34.8 [facility] Comment on above: Performed By: #### O HP, IOCAL ####[address] [place] [address] MCV Auto Entitic volume (RBC) 91.9 fL Normal 82.6-102.9 [facility] Comment on above: Performed By: #### O HP, IOCAL ####[facility] [address] [place] [address] NRBC Automated 0.0 per 100 WBC Normal 0.0 [facility] Comment on above: Performed By: #### O HP, IOCAL ####[facility] [address] [place] [address] Platelet mean volume Auto Entitic volume (Bld) 11.5 fL Normal 8.1-13.5 [facility] Comment on above: Performed By: #### O HP, IOCAL ####[address] [address] Platelets Auto #/vol (Bld) 156 10*3/uL Normal 138-453 [facility] Comment on above: Performed By: #### O HP, IOCAL ####[address] [address] RBC Auto #/vol (Bld) 3.35 10*6/uL Low 4.21-5.77 [facility] Comment on above: Performed By: #### O HP, IOCAL ####[address] [address] WBC Auto #/vol (Bld) 15.6 10*3/uL High 3.5-11.3 [facility] Comment on above: Performed By: #### O HP, IOCAL ####[address] [address] Calcium, Ionicon 01-24-2018 Calcium mass conc 1.06 mmol/L Low 1.13-1.33 [facility] Comment on above: Performed By: #### O HP, IOCAL ####[address] [address] K (Potassium)on 01-24-2018 Potassium molar conc 3.0 mmol/L Low 3.7-5.3 [facility] Comment on above: Performed By: #### O HP, IOCAL ####[address] [place] [address] Potassium molar conc 3.0 mmol/L Low 3.7-5.3 [facility] Comment on above: Performed By: #### O HP, IOCAL ####[address] [place] [address] Magnesiumon 01-24-2018 Magnesium mass conc 1.9 mg/dL Normal 1.6-2.6 [facility] Comment on above: Performed By: #### O HP, IOCAL ####[address] [place] [address] Phosphorus, Inorg.on 018 Phosphorus, Inorg. 2.3 mg/dL Low 2.5-4.5 [facility] Comment on above: Performed By: #### O HP, IOCAL ####[address] [place] [address] Vancomycin Troughon 01-25-20 18 Vancomycin Trough 8.8 ug/mL Low 10.0-20.0 [facility] Comment on above: Result Comment: High er trough serum vancomycin concentrations of 15-20 ug/mL are recommended for complicated infections such as bacteremia, endocarditis, osteomyelitis, meningitis, and hospital acquired pneumonia. Performed By: #### O HP, IOCAL ####[address] [place] [address] Date last dose, NOT REPORTED Normal [facility] Comment on above: Performed By: #### O HP, IOCAL ####[address] [place] [address] Dose amount, NOT REPORTED Normal [facility] Comment on above: Performed By: #### O HP, IOCAL ####[address] [place] [address] Time last dose, NOT REPORTED Normal [facility] Comment on above: Performed By: #### O HP, IOCAL ####[facility] [address] [place] [address] XR CHEST PORTABLEon 01-25-20 18 XR CHEST [...] by:NADEGE Wrightigned by:Cassie Guzmán MD01/24/18inal result Normal [facility] Basic Metabolic Profon 01-23 Creatinine mass conc 0.47 mg/dL Low 0.70-1.20 [facility] Comment on above: Result Comment: ICTE LOUIE SPECIMEN Performed By: #### O HP, IOCAL ####[facility] [address] [place] [address] GFR, Amer >60 Normal >60 [facility] Comment on above: Performed By: #### O HP, IOCAL ####[facility] [address] [place] [address] GFR,non Amer >60 Normal >60 [facility] Comment on above: Performed By: #### O HP, IOCAL ####[facility] [employer] [facility] [address]bww[address]682 [place] [address] (cont.) Normal [facility] Comment on above: Result Comment: Aver age GFR for 50-59 years old: 93 mL/min/1.73sq mChronic Kidney Disease: <60 mL/min/1.73sq mKidney failure: <15 mL/min/1.73sq meGFR calculated using average adult body mass. Additional eGFR calculator available at:http://www.[employer]/multiple_crcl_2012.htm Performed By: #### O HP, IOCAL ####[facility]joy TechnologyCzhkxwhfclle[address]34 [place] [address] Anion gap 3 molar conc 11 mmol/L Normal 9-17 [facility] Comment on above: Performed By: #### O HP, IOCAL ####[facility] Qqdrevmtfwqb2527 [place] [address] Calcium mass conc 8.3 mg/dL Low 8.6-10.4 [facility] Comment on above: Performed By: #### O HP, IOCAL ####[facility] [employer] [address]afcbnjkr4498 [place] [address] Chloride molar conc 98 mmol/L Normal 98-107 [facility] Comment on above: Performed By: #### O HP, IOCAL ####[facility] Mweebicphtbq[address] [place] [address] CO2 molar conc 25 mmol/L Normal 20-31 [facility] Comment on above: Performed By: #### O HP, IOCAL ####[facility] Injphneyjgaq2053 [place] [address] Glucose mass conc 107 mg/dL High 70-99 [facility] Comment on above: Performed By: #### O HP, IOCAL ####[facility] Isgjvapddyke4321 [place] [address] Potassium molar conc 3.2 mmol/L Low 3.7-5.3 [facility] Comment on above: Performed By: #### O HP, IOCAL ####[address] [place] [address] Sodium molar conc 134 mmol/L Low 135-144 [facility] Comment on above: Performed By: #### O HP, IOCAL ####[facility] Gqbnsjcynafo5375 [place] [address] Urea nitrogen mass conc 9 mg/dL Normal -20 [facility] Comment on above: Performed By: #### O HP, IOCAL ####[facility] [address] [place] [address] BUN/CRE Ratio NOT REPORTED Normal - [facility] Comment on above: Performed By: #### O HP, IOCAL ####[facility] [address] [place] [address] Staging: NOT REPORTED Normal [facility] Comment on above: Performed By: #### O HP, IOCAL ####[facility] [address] [place] [address] Brain Natri. Peptideon 01-23 Natriuretic peptide B mass conc (Bld) Normal [facility] Comment on above: Result Comment: Pro- BNP Reference Range:Rule Out: <300Grey Zone: Age <50 300-450 Age 50-75 300-900 Age >75 300-1800Usually represents mild to moderate HF but other cardiopulmonary causes cannot be ruled out.Rule In: Age <50 >450 Age 50-75 >900 Age >75 >1800 Performed By: #### O HP, IOCAL ####[facility] [address] [place] [address] Natriuretic peptide B mass conc (Bld) 34[address] pg/mL High <300 [facility] Comment on above: Result Comment: Pro- BNP results cannot be compared to BNP results. Performed By: #### O HP, IOCAL ####[address] [address] CBCon 01-23-2018 Erythrocyte distribution width Auto Ratio (RBC) 15.6 % High 11.8-14.4 [facility] Comment on above: Performed By: #### O HP, IOCAL ####[address] [address] Hematocrit Auto Volume Fraction (Bld) 32.4 % Low 40.7-50.3 [facility] Comment on above: Performed By: #### O HP, IOCAL ####[address] [address] Hemoglobin mass conc (Bld) 11.1 g/dL Low 13.0-17.0 [facility] Comment on above: Performed By: #### O HP, IOCAL ####[address] [address] MCH Auto Entitic mass (RBC) 31.8 pg Normal 25.2-33.5 [facility] Comment on above: Performed By: #### O HP, IOCAL ####[facility] [address] [place] [address] [address] MCHC Auto mass conc (RBC) 34.3 g/dL Normal 28.4-34.8 [facility] Comment on above: Performed By: #### O HP, IOCAL ####[facility] Hfvocfjyrsns8884 [place] [address] MCV Auto Entitic volume (RBC) 92.8 fL Normal 82.6-102.9 [facility] Comment on above: Performed By: #### O HP, IOCAL ####[address] [address] NRBC Automated 0.0 per 100 WBC Normal 0.0 [facility] Comment on above: Performed By: #### O HP, IOCAL ####[facility] Xnnxlphmteve6832 [place] [address] Platelets Auto #/vol (Bld) See Reflexed IPF Result Normal 138-453 [facility] Comment on above: Performed By: #### O HP, IOCAL ####[facility] [place] [address] RBC Auto #/vol (Bld) 3.49 10*6/uL Low 4.21-5.77 [facility] Comment on above: Performed By: #### O HP, IOCAL ####[facility] [place] [address] WBC Auto #/vol (Bld) 23.6 10*3/uL High 3.5-11.3 [facility] Comment on above: Performed By: #### O HP, IOCAL ####[address] [place] [address] Platelet mean volume Auto Entitic volume (Bld) NOT REPORTED Normal 8.1-13.5 [facility] Comment on above: Performed By: #### O HP, IOCAL ####[address] [place] [address] CT LUMBAR SPINE WO CONTRASTo n 01-23-2018 [...] by:NADEGE Lancasterigned by:Hebert Best MD01/22/18inal result Normal [facility] CT THORACIC SPINE WO CONTRAS Ton [...] assessed onprevious CTA.Interpreted by:NADEGE Lancasterigned by:Hebert Best MD01/22/inal result Normal [facility] Calcium, Ionicon 01-23-2018 Calcium mass conc 1.09 mmol/L Low 1.13-1.33 [facility] Comment on above: Performed By: #### O HP, IOCAL ####[facility] TechnologyXomcjbtapoto[address] [place] [address] Calcium mass conc 1.08 mmol/L Low 1.13-1.33 [facility] Comment on above: Performed By: #### O HP, IOCAL ####[facility] Ivwwwjsxfojk0736 [place] [address] Magnesiumon 01-23-2018 Magnesium mass conc 2.0 mg/dL Normal 1.6-2.6 [facility] Comment on above: Performed By: #### O HP, IOCAL ####[facility] TechnologyJvovrikwsrvw8714 [place] [address] Magnesium mass conc 2.0 mg/dL Normal 1.6-2.6 [facility] Comment on above: Performed By: #### O HP, IOCAL ####[facility] [place] [address] PLT, Immature Fract.on 01-23 Platelet, Fluoresc. 134 k/uL Low 138-453 [facility] Comment on above: Performed By: #### O HP, IOCAL ####[facility] Ocivlwwgblzf9565 [place] [address] PLT, Immature Fract. 6.9 % Normal 1.1-10.3 [facility] Comment on above: Performed By: #### O HP, IOCAL ####[facility] Hyhaovfwbyur4936 [place] [address] Vancomycin Troughon 01-24-20 18 Vancomycin Trough 13.6 ug/mL Normal 10.0-20.0 [facility] Comment on above: Result Comment: High er trough serum vancomycin concentrations of 15-20 ug/mL are recommended for complicated infections such as bacteremia, endocarditis, osteomyelitis, meningitis, and hospital acquired pneumonia. Performed By: #### O HP, IOCAL ####[facility] Vyyelbmhjmho0422 [place] [address] Date last dose, NOT REPORTED Normal [facility] Comment on above: Performed By: #### O HP, IOCAL ####[facility] RojasAguhoyxfivda[address] [place] [address] Dose amount, NOT REPORTED Normal [facility] Comment on above: Performed By: #### O HP, IOCAL ####[facility] Faclsvghtvhr[address] [place] [address] Time last dose, NOT REPORTED Normal [facility] Comment on above: Performed By: #### O HP, IOCAL ####[facility] Mcujqrisyixm[address] [place] [address] Vitamin D 25 OHon 01-23-2018 Vitamin D 25 [place] 10.5 ng/mL Low 30.0-100.0 [facility] Comment on above: Result Comment: Refe rence Range:Vitamin D status Range Deficiency <20 ng/mL Mild Deficiency 20-30 ng/mL Sufficiency 30-100 ng/mL Toxicity >100 ng/mL Performed By: #### O HP, IOCAL ####[facility] Vgsxnoztbjvo9330 [place] [address] XR CHEST PORTABLEon 01-24-20 18 XR CHEST [...] chronic interstitialchange.Interprete d by:NADEGE Wrightigned by:Cassie Guzmán MD01/23/inal result Normal [facility] Arterial Blood Gaseson 01-22 Josue Test INFORMATION NOT PROVIDED Normal [facility] Comment on above: Performed By: #### O HP, IOCAL ####[facility] Rieserrxirbu2313 [place] [address] Body Temp. 37.0 Normal [facility] Comment on above: Performed By: #### O HP, IOCAL ####[facility] Lcmdwfykppnt6511 [place] [address] Carboxy Hgb 2.7 % Normal 0-5 [facility] Comment on above: Result Comment: Refe rence Range:Non-Smokers 0-2%Average Smoker 2-4%Heavy Smoker <10% Performed By: #### O HP, IOCAL ####[facility] RojasYvqstbychnaa2237 [place] [address] FIO2 60% Normal [facility] Comment on above: Performed By: #### O HP, IOCAL ####[facility] Sftgymhqrmnc[address] [place] [address] HCO3 molar conc (Bld) 28.2 mmol/L High 22-27 [facility] Comment on above: Performed By: #### O HP, IOCAL ####[facility] Orminpxpqqsd5384 [place] [address] Oxygen ppres (BldA) 81.3 mm[Hg] Normal 75-95 [facility] Comment on above: Performed By: #### O HP, IOCAL ####[facility] Bosjvdslazz[address] [place] [address] Oxygen saturation in Blood 95.9 % Normal 94-100 [facility] Comment on above: Performed By: #### O HP, IOCAL ####[facility] Domnwzomspzn0205 [place] [address] pCO2 41.5 mmHg Normal 32-45 [facility] Comment on above: Performed By: #### O HP, IOCAL ####[facility] Nxktexkbjbed0656 [place] [address] pH (Bld) 7.447 [pH] Normal 7.350-7.45 0 [facility] Comment on above: Performed By: #### O HP, IOCAL ####[facility] Ualaominldti5605 [place] [address] Positive Base Excess 4.2 mmol/L High 0.0-2.0 [facility] Comment on above: Performed By: #### O HP, IOCAL ####[facility] Rijvbblrdcal3814 [place] [address] Methemoglobin NOT REPORTED Normal 0.0-1.5 [facility] Comment on above: Performed By: #### O HP, IOCAL ####[facility] Hdlczqokmijv7037 [place] [address] Mode NOT REPORTED Normal [facility] Comment on above: Performed By: #### O HP, IOCAL ####[facility] Mesadjfxvigp8835 [place] [address] Negative Base Excess NOT REPORTED Normal 0.0-2.0 [facility] Comment on above: Performed By: #### O HP, IOCAL ####[address] [address] Notification Time NOT REPORTED Normal [facility] Comment on above: Performed By: #### O HP, IOCAL ####[facility] Bzyvaclwkomh9902 [place] [address] Notification: NOT REPORTED Normal [facility] Comment on above: Performed By: #### O HP, IOCAL ####[facility] [address] [place] [address] O2 Device/Flow/% NOT REPORTED Normal [facility] Comment on above: Performed By: #### O HP, IOCAL ####[facility] Qiqjmqviywon2252 [place] [address] Oxyhemoglobin NOT REPORTED Normal 95.0-98.0 [facility] Comment on above: Performed By: #### O HP, IOCAL ####[facility] Fxq[address]lakz[address] [place] [address] pCO2 Adj'd for Temp NOT REPORTED Normal 32-45 [facility] Comment on above: Performed By: #### O HP, IOCAL ####[facility] Rtnkxewchpar0183 [place] [address] PEEP/CPAP NOT REPORTED Normal [facility] Comment on above: Performed By: #### O HP, IOCAL ####[facility] Rvfgtlajjtvq0241 [place] [address] pH Adjst'd for Temp. NOT REPORTED Normal 7.350-7 .45 0 [facility] Comment on above: Performed By: #### O HP, IOCAL ####[facility] Laycalpdzuqv9858 [place] [address] pO2 Adjst'd for Temp NOT REPORTED Normal 75-95 [facility] Comment on above: Performed By: #### O HP, IOCAL ####[facility] Tovhoaxtaulz[address] [place] [address] PSV NOT REPORTED Normal [facility] Comment on above: Performed By: #### O HP, IOCAL ####[facility] [address] [place] [address] Pt. Position NOT REPORTED Normal [facility] Comment on above: Performed By: #### O HP, IOCAL ####[facility] Unhexmqvfllb[address] [place] [address] Set Rate NOT REPORTED Normal [facility] Comment on above: Performed By: #### O HP, IOCAL ####[facility] Feruaheinjxj[address] [place] [address] Site Drawn NOT REPORTED Normal [facility] Comment on above: Performed By: #### O HP, IOCAL ####[facility] Fhaexmpmkwkq7360 [place] [address] Text for Respiratory NOT REPORTED Normal [facility] Comment on above: Performed By: #### O HP, IOCAL ####[facility] E[address]zfaq[address] [place] [address] Total Hb NOT REPORTED Normal 12.0-16.0 [facility] Comment on above: Performed By: #### O HP, IOCAL ####[facility] Mnjjeaxonzmm7932 [place] [address] Total Rate NOT REPORTED Normal [facility] Comment on above: Performed By: #### O HP, IOCAL ####[facility] Swhrdyijackb3201 [place] [address] VT NOT REPORTED Normal [facility] Comment on above: Performed By: #### O HP, IOCAL ####[facility] Ciywtxkjkgeb5159 [place] [address] Basic Metab w/rfx MGon 01-22 (cont.) Normal [facility] Comment on above: Result Comment: Aver age GFR for 50-59 years old: 93 mL/min/1.73sq mChronic Kidney Disease: <60 mL/min/1.73sq mKidney failure: <15 mL/min/1.73sq meGFR calculated using average adult body mass. Additional eGFR calculator available at:http://www.[employer].Peer5/multiple_crcl_2012.htm Performed By: #### O HP, IOCAL ####[facility] Wjywzymolozk1126 [place] [address] Anion gap 3 molar conc 9 mmol/L Normal 9-17 [facility] Comment on above: Performed By: #### O HP, IOCAL ####[facility] Hrrdkxlbnwfc5060 [place] [address] Calcium mass conc 8.0 mg/dL Low 8.6-10.4 [facility] Comment on above: Performed By: #### O HP, IOCAL ####[facility] Gkxynjhnwzut7123 [place] [address] Chloride molar conc 99 mmol/L Normal 98-107 [facility] Comment on above: Performed By: #### O HP, IOCAL ####[facility] Mmwarvhxveaf9099 [place] [address] CO2 molar conc 28 mmol/L Normal 20-31 [facility] Comment on above: Performed By: #### O HP, IOCAL ####[facility] Idkibphcfeps6634 [place] [address] Creatinine mass conc 0.56 mg/dL Low 0.70-1.20 [facility] Comment on above: Performed By: #### O HP, IOCAL ####[facility] Bioaqkwccqrl7887 [place] [address] GFR, Amer >60 Normal >60 [facility] Comment on above: Performed By: #### O HP, IOCAL ####[facility] Yqbgfbhkyxqv8575 [place] [address] GFR,non Amer >60 Normal >60 [facility] Comment on above: Performed By: #### O HP, IOCAL ####[facility] Oldikzjifxcg9304 [place] [address] Glucose mass conc 122 mg/dL High 70-99 [facility] Comment on above: Performed By: #### O HP, IOCAL ####[facility] Kkihriprtmgi5799 [place] [address] Potassium molar conc 3.8 mmol/L Normal 3.7-5.3 [facility] Comment on above: Performed By: #### O HP, IOCAL ####[facility] Fkoropchetij8949 [place] [address] Sodium molar conc 136 mmol/L Normal 135-144 [facility] Comment on above: Performed By: #### O HP, IOCAL ####[facility] Nukxuthxoixg2799 [place] [address] Urea nitrogen mass conc 9 mg/dL Normal 6-20 [facility] Comment on above: Performed By: #### O HP, IOCAL ####[facility] Uzwszbfknczc5936 [place] [address] BUN/CRE Ratio NOT REPORTED Normal - [facility] Comment on above: Performed By: #### O HP, IOCAL ####[facility] Grflxcocxugr6736 [place] [address] Staging: NOT REPORTED Normal [facility] Comment on above: Performed By: #### O HP, IOCAL ####[facility] Pgdlssazovoi7609 [place] [address] Basic Metabolic Profon 01-22 (cont.) Normal [facility] Comment on above: Result Comment: Aver age GFR for 50-59 years old: 93 mL/min/1.73sq mChronic Kidney Disease: <60 mL/min/1.73sq mKidney failure: <15 mL/min/1.73sq meGFR calculated using average adult body mass. Additional eGFR calculator available at:http://www.[employer].Peer5/multiple_crcl_2012.htm Performed By: #### O HP, IOCAL ####[facility] [address] [place] [address] Anion gap 3 molar conc 11 mmol/L Normal -17 [facility] Comment on above: Performed By: #### O HP, IOCAL ####[facility] Xabdzhurmopn6988 [place] [address] Calcium mass conc 8.1 mg/dL Low 8.6-10.4 [facility] Comment on above: Performed By: #### O HP, IOCAL ####[facility] Badsgbnphqhh6131 [place] [address] Chloride molar conc 99 mmol/L Normal 98-107 [facility] Comment on above: Performed By: #### O HP, IOCAL ####[facility] Nowwnddwkbqc0132 [place] [address] CO2 molar conc 27 mmol/L Normal 20-31 [facility] Comment on above: Performed By: #### O HP, IOCAL ####[facility] Tdbaiwnypdgq4570 [place] [address] Creatinine mass conc 0.58 mg/dL Low 0.70-1.20 [facility] Comment on above: Performed By: #### O HP, IOCAL ####[facility] Qsraxwrpuvef5897 [place] [address] GFR, Amer >60 Normal >60 [facility] Comment on above: Performed By: #### O HP, IOCAL ####[facility] Lmxnevyqzqgh8126 [place] [address] GFR,non Amer >60 Normal >60 [facility] Comment on above: Performed By: #### O HP, IOCAL ####[facility] TechnologyWxvzppetuwfd[address] [place] [address] Glucose mass conc 87 mg/dL Normal 70-99 [facility] Comment on above: Performed By: #### O HP, IOCAL ####[facility] TechnologyFrufntwenple2497 [place] [address] Potassium molar conc 3.6 mmol/L Low 3.7-5.3 [facility] Comment on above: Performed By: #### O HP, IOCAL ####[facility] Canzllbkzqtx7534 [place] [address] Sodium molar conc 137 mmol/L Normal 135-144 [facility] Comment on above: Performed By: #### O HP, IOCAL ####[facility] Rvqtbzvuebvz4116 [place] [address] Urea nitrogen mass conc 6 mg/dL Normal 6-20 [facility] Comment on above: Performed By: #### O HP, IOCAL ####[facility] Glwyxreahmcs4397 [place] [address] Brain Natri. Peptideon 01-22 Natriuretic peptide B mass conc (Bld) Normal [facility] Comment on above: Result Comment: Pro- BNP Reference Range:Rule Out: <300Grey Zone: Age <50 300-450 Age 50-75 300-900 Age >75 300-1800Usually represents mild to moderate HF but other cardiopulmonary causes cannot be ruled out.Rule In: Age <50 >450 Age 50-75 >900 Age >75 >1800 Performed By: #### O HP, IOCAL ####[address] [address] Natriuretic peptide B mass conc (Bld) 00968 pg/mL High <300 [facility] Comment on above: Result Comment: Pro- BNP results cannot be compared to BNP results. Performed By: #### O HP, IOCAL ####[address] [address] CBCon 01-22-2018 Erythrocyte distribution width Auto Ratio (RBC) 15.8 % High 11.8-14.4 [facility] Comment on above: Performed By: #### O HP, IOCAL ####[address] [address] Hematocrit Auto Volume Fraction (Bld) 32.6 % Low 40.7-50.3 [facility] Comment on above: Performed By: #### O HP, IOCAL ####[facility] Tocmfarrdzva[address] [place] [address] Hemoglobin mass conc (Bld) 10.7 g/dL Low 13.0-17.0 [facility] Comment on above: Performed By: #### O HP, IOCAL ####[address] [address] MCH Auto Entitic mass (RBC) 31.4 pg Normal 25.2-33.5 [facility] Comment on above: Performed By: #### O HP, IOCAL ####[address] [address] MCHC Auto mass conc (RBC) 32.8 g/dL Normal 28.4-34.8 [facility] Comment on above: Performed By: #### O HP, IOCAL ####[address] [address] MCV Auto Entitic volume (RBC) 95.6 fL Normal 82.6-102.9 [facility] Comment on above: Performed By: #### O HP, IOCAL ####[address] [address] NRBC Automated 0.0 per 100 WBC Normal 0.0 [facility] Comment on above: Performed By: #### O HP, IOCAL ####[address] [address] Platelets Auto #/vol (Bld) See Reflexed IPF Result Normal 138-453 [facility] Comment on above: Performed By: #### O HP, IOCAL ####[address] [address] RBC Auto #/vol (Bld) 3.41 10*6/uL Low 4.21-5.77 [facility] Comment on above: Performed By: #### O HP, IOCAL ####[address] [address] WBC Auto #/vol (Bld) 28.0 10*3/uL High 3.5-11.3 [facility] Comment on above: Performed By: #### O HP, IOCAL ####[address] [address] CBC with Diffon 01-22-2018 Abs. Basophil 0.00 k/uL Normal 0.0-0.2 [facility] Comment on above: Performed By: #### O HP, IOCAL ####[address] [address] Abs.Imm.Granulocyte 0.29 k/uL Normal 0.00-0.30 [facility] Comment on above: Performed By: #### O HP, IOCAL ####[address] [address] Abs.Neutrophil (Seg) 25.64 k/uL High 1.8-7.7 [facility] Comment on above: Performed By: #### O HP, IOCAL ####[address] [address] Basophils/100 WBC Auto (Bld) 0 % Normal 0-2 [facility] Comment on above: Performed By: #### O HP, IOCAL ####[address] [address] Eosinophils Auto #/vol (Bld) 0.00 10*3/uL Normal 0.0-0.4 [facility] Comment on above: Performed By: #### O HP, IOCAL ####[address] [address] Eosinophils/100 WBC Auto (Bld) 0 % Low 1-4 [facility] Comment on above: Performed By: #### O HP, IOCAL ####[address] [address] Immature granulocytes #/vol (Bld) 1 % High 0 [facility] Comment on above: Performed By: #### O HP, IOCAL ####[address] [address] Lymphocytes Auto #/vol (Bld) 2.00 10*3/uL Normal 1.0-4.8 [facility] Comment on above: Performed By: #### O HP, IOCAL ####[address] [place] [address] Lymphocytes/100 WBC Auto (Bld) 7 % Low 24-44 [facility] Comment on above: Performed By: #### O HP, IOCAL ####[address] [address] Monocytes Auto #/vol (Bld) 0.57 10*3/uL Normal 0.1-0.8 [facility] Comment on above: Performed By: #### O HP, IOCAL ####[address] [address] Monocytes/100 WBC Auto (Bld) 2 % Normal 1-7 [facility] Comment on above: Performed By: #### O HP, IOCAL ####[address] [address] Morphology Interp Eduard (Bld) INCREASED BANDS PRESENT Normal [facility] Comment on above: Result Comment: ANIS OCYTOSIS PRESENT Performed By: #### O HP, IOCAL ####[address] [address] Neutrophil (Seg) 90 % High 36-66 [facility] Comment on above: Performed By: #### O HP, IOCAL ####[address] [address] NRBC Automated 0.0 per 100 WBC Normal 0.0 [facility] Comment on above: Performed By: #### O HP, IOCAL ####[address] [address] WBC Auto #/vol (Bld) 28.5 10*3/uL High 3.5-11.3 [facility] Comment on above: Performed By: #### O HP, IOCAL ####[address] [address] Erythrocyte distribution width Auto Ratio (RBC) 15.6 % High 11.8-14.4 [facility] Comment on above: Performed By: #### O HP, IOCAL ####[address] [address] Hematocrit Auto Volume Fraction (Bld) 31.4 % Low 40.7-50.3 [facility] Comment on above: Performed By: #### O HP, IOCAL ####[facility] [address] [place] [address] Hemoglobin mass conc (Bld) 10.3 g/dL Low 13.0-17.0 [facility] Comment on above: Performed By: #### O HP, IOCAL ####[address] [address] MCH Auto Entitic mass (RBC) 30.9 pg Normal 25.2-33.5 [facility] Comment on above: Performed By: #### O HP, IOCAL ####[address] [address] MCHC Auto mass conc (RBC) 32.8 g/dL Normal 28.4-34.8 [facility] Comment on above: Performed By: #### O HP, IOCAL ####[address] [address] MCV Auto Entitic volume (RBC) 94.3 fL Normal 82.6-102.9 [facility] Comment on above: Performed By: #### O HP, IOCAL ####[address] [address] Platelets Auto #/vol (Bld) See Reflexed IPF Result Normal 138-453 [facility] Comment on above: Performed By: #### O HP, IOCAL ####[address] [address] RBC Auto #/vol (Bld) 3.33 10*6/uL Low 4.21-5.77 [facility] Comment on above: Performed By: #### O HP, IOCAL ####[address] [address] Auto Diff Performed NOT REPORTED Normal [facility] Comment on above: Performed By: #### O HP, IOCAL ####[address] [address] Platelet mean volume Auto Entitic volume (Bld) NOT REPORTED Normal 8.1-13.5 [facility] Comment on above: Performed By: #### O HP, IOCAL ####[address] [address] Platelets Auto #/vol (Bld) NOT REPORTED Normal [facility] Comment on above: Performed By: #### O HP, IOCAL ####[address] [address] RBC morphology finding Nom (Bld) NOT REPORTED Normal [facility] Comment on above: Performed By: #### O HP, IOCAL ####[address] [address] WBC Morphology NOT REPORTED Normal [facility] Comment on above: Performed By: #### O HP, IOCAL ####[address] [address] MRI LUMBAR SPINE WO CONTRAST on 01-22-2018 [...] T2 hyperintensity involves the L1 vertebral body. [id number] process acute fracture. Remaining vertebrae maintain normal [...] facet arthrosis, mildcentral spinal canal stenosis and ewat-ap-ftbzsjky bilateral foraminalstenosis.IMPRESSION: L1 acute compression fracture, 20% anterior height loss. No bonyretropulsion or acute neural impingement.T12 acute spinous process fracture.Interpreted by:NADEGE Romeroigned by:Ramakrishna Santana MD01/22/18 Recipients:Rubina Arreaga DO - In [employer] (authorizing provider)Final result Normal [facility] Magnesiumon 01-22-2018 Magnesium mass conc 2.0 mg/dL Normal 1.6-2.6 [facility] Comment on above: Performed By: #### O HP, IOCAL ####[facility] Hqogisfzoxbc3031 [place] [address] PLT, Immature Fract.on 01-22 Platelet, Fluoresc. 128 k/uL Low 138-453 [facility] Comment on above: Result Comment: ORDE RED BY LAB Performed By: #### O HP, IOCAL ####[facility] TechnologyAtsteshwlqfy7469 [place] [address] PLT, Immature Fract. 5.8 % Normal 1.1-10.3 [facility] Comment on above: Result Comment: ORDE RED BY LAB Performed By: #### O HP, IOCAL ####[facility] Xznmqghvtbby8775 [place] [address] Platelet, Fluoresc. 132 k/uL Low 138-453 [facility] Comment on above: Performed By: #### O HP, IOCAL ####[facility] [address] [place] [address] PLT, Immature Fract. 6.2 % Normal 1.1-10.3 [facility] Comment on above: Performed By: #### O HP, IOCAL ####[facility] [address] [place] [address] Phosphorus, Inorg.on 018 Phosphorus, Inorg. 2.2 mg/dL Low 2.5-4.5 [facility] Comment on above: Performed By: #### O HP, IOCAL ####[address] [place] [address] Phosphorus, Inorg. 2.5 mg/dL Normal 2.5-4.5 [facility] Comment on above: Result Comment: SOTO Lynne ON Performed By: #### O HP, IOCAL ####[address] [address] XR CHEST PORTABLEon 01-23-20 18 XR CHEST [...] by:NADEGE Wrightigned by:Cassie Guzmán MD01/22/18inal result Normal [facility] Basic Metabolic Profon 01-21 (cont.) Normal [facility] Comment on above: Result Comment: Aver age GFR for 50-59 years old: 93 mL/min/1.73sq mChronic Kidney Disease: <60 mL/min/1.73sq mKidney failure: <15 mL/min/1.73sq meGFR calculated using average adult body mass. Additional eGFR calculator available at:http://www.Border[employer]/multiple_crcl_2012.htm Performed By: #### B MP, BNP ####[facility] [address] [place] [address] Performed By: #### E RTPF, CONNER, LIP, LIVP, TEGCR ####[facility] [address] [place] [address] Anion gap 3 molar conc 9 mmol/L Normal 9-17 [facility] Comment on above: Performed By: #### B MP, BNP ####[facility] [address] [place] [address] Calcium mass conc 8.1 mg/dL Low 8.6-10.4 [facility] Comment on above: Performed By: #### B MP, BNP ####[facility] [address] [place] [address] Performed By: #### E RTPF, CONNER, LIP, LIVP, TEGCR ####[facility] [address] [place] [address] Chloride molar conc 99 mmol/L Normal 98-107 [facility] Comment on above: Performed By: #### B MP, BNP ####[facility] [place] [address] Performed By: #### E RTPF, CONNER, LIP, LIVP, TEGCR ####[facility] [place] [address] CO2 molar conc 27 mmol/L Normal 20-31 [facility] Comment on above: Performed By: #### B MP, BNP ####[facility] [place] [address] Creatinine mass conc 0.54 mg/dL Low 0.70-1.20 [facility] Comment on above: Performed By: #### B MP, BNP ####[address] [address] GFR, Amer >60 Normal >60 [facility] Comment on above: Performed By: #### B MP, BNP ####[facility] [place] [address] Performed By: #### E RTPF, CONNER, LIP, LIVP, TEGCR ####[facility] [place] [address] GFR,non Amer >60 Normal >60 [facility] Comment on above: Performed By: #### B MP, BNP ####[facility] [place] [address] Performed By: #### E RTPF, CONNER, LIP, LIVP, TEGCR ####[facility] [place] [address] Glucose mass conc 106 mg/dL High 70-99 [facility] Comment on above: Performed By: #### B MP, BNP ####[address] [place] [address] Potassium molar conc 4.4 mmol/L Normal 3.7-5.3 [facility] Comment on above: Performed By: #### B MP, BNP ####[facility] [place] [address] Sodium molar conc 135 mmol/L Normal 135-144 [facility] Comment on above: Performed By: #### B MP, BNP ####[facility] [address] [place] [address] Urea nitrogen mass conc 7 mg/dL Normal 6-20 [facility] Comment on above: Performed By: #### B MP, BNP ####[address] [place] [address] Performed By: #### E RTPF, CONNER, LIP, LIVP, TEGCR ####[facility] [place] [address] Anion gap 3 molar conc 10 mmol/L Normal 9-17 [facility] Comment on above: Performed By: #### E RTPF, CONNER, LIP, LIVP, TEGCR ####[facility] [place] [address] CO2 molar conc 28 mmol/L Normal 20-31 [facility] Comment on above: Performed By: #### E RTPF, CONNER, LIP, LIVP, TEGCR ####[facility] [place] [address] Creatinine mass conc 0.56 mg/dL Low 0.70-1.20 [facility] Comment on above: Performed By: #### E RTPF, CONNER, LIP, LIVP, TEGCR ####[facility] [place] [address] Glucose mass conc 97 mg/dL Normal 70-99 [facility] Comment on above: Performed By: #### E RTPF, CONNER, LIP, LIVP, TEGCR ####[address] [address] Potassium molar conc 4.7 mmol/L Normal 3.7-5.3 [facility] Comment on above: Performed By: #### E RTPF, CONNER, LIP, LIVP, TEGCR ####[address] [address] Sodium molar conc 137 mmol/L Normal 135-144 [facility] Comment on above: Performed By: #### E RTPF, CONNER, LIP, LIVP, TEGCR ####[address] [address] BUN/CRE Ratio NOT REPORTED Normal 01-21 [facility] Comment on above: Performed By: #### B MP, BNP ####[address] [address] Performed By: #### E RTPF, CONNER, LIP, LIVP, TEGCR ####[address] [address] Staging: NOT REPORTED Normal [facility] Comment on above: Performed By: #### B MP, BNP ####[address] [address] Performed By: #### E RTPF, CONNER, LIP, LIVP, TEGCR ####[address] [address] Brain Natri. Peptideon 01-21 Natriuretic peptide B mass conc (Bld) 23438 pg/mL High <300 [facility] Comment on above: Result Comment: Pro- BNP results cannot be compared to BNP results. Performed By: #### B MP, BNP ####[address] [address] Natriuretic peptide B mass conc (Bld) Normal [facility] Comment on above: Result Comment: Pro- BNP Reference Range:Rule Out: <300[place] Zone: Age <50 300-450 Age 50-75 300-900 Age >75 300-1800Usually represents mild to moderate HF but other cardiopulmonary causes cannot be ruled out.Rule In: Age <50 >450 Age 50-75 >900 Age >75 >1800 Performed By: #### B MP, BNP ####[address] [address] CBCon 01-21-2018 Erythrocyte distribution width Auto Ratio (RBC) 15.8 % High 11.8-14.4 [facility] Comment on above: Performed By: #### E RTPF, CONNER, LIP, LIVP, TEGCR ####[address] [address] Hematocrit Auto Volume Fraction (Bld) 35.6 % Low 40.7-50.3 [facility] Comment on above: Performed By: #### E RTPF, CONNER, LIP, LIVP, TEGCR ####[address] [address] Hemoglobin mass conc (Bld) 12.1 g/dL Low 13.0-17.0 [facility] Comment on above: Performed By: #### E RTPF, CONNER, LIP, LIVP, TEGCR ####[address] [address] MCH Auto Entitic mass (RBC) 31.1 pg Normal 25.2-33.5 [facility] Comment on above: Performed By: #### E RTPF, CONNER, LIP, LIVP, TEGCR ####[address] [address] MCHC Auto mass conc (RBC) 34.0 g/dL Normal 28.4-34.8 [facility] Comment on above: Performed By: #### E RTPF, CONNER, LIP, LIVP, TEGCR ####[address] [address] MCV Auto Entitic volume (RBC) 91.5 fL Normal 82.6-102.9 [facility] Comment on above: Performed By: #### E RTPF, CONNER, LIP, LIVP, TEGCR ####[address] [address] NRBC Automated 0.0 per 100 WBC Normal 0.0 [facility] Comment on above: Performed By: #### E RTPF, CONNER, LIP, LIVP, TEGCR ####[address] [address] Platelets Auto #/vol (Bld) See Reflexed IPF Result Normal 138-453 [facility] Comment on above: Performed By: #### E RTPF, CONNER, LIP, LIVP, TEGCR ####[address] [address] RBC Auto #/vol (Bld) 3.89 10*6/uL Low 4.21-5.77 [facility] Comment on above: Performed By: #### E RTPF, CONNER, LIP, LIVP, TEGCR ####[address] [address] WBC Auto #/vol (Bld) 19.4 10*3/uL High 3.5-11.3 [facility] Comment on above: Performed By: #### E RTPF, CONNER, LIP, LIVP, TEGCR ####[address] [address] Platelet mean volume Auto Entitic volume (Bld) NOT REPORTED Normal 8.1-13.5 [facility] Comment on above: Performed By: #### E RTPF, CONNER, LIP, LIVP, TEGCR ####[facility] TechnologyTziommjlzgcm[address] [place], [place] [address] CT GUIDED THORACENTESISon CT GUIDED THORACENTESIS PROCEDURE:CTGUIDED RIGHT THORACENTESIS01/21/2018HISTORY :ORDERING SYSTEM PROVIDED HISTORY: pleural effusion. spoke with Dr. Landers PROVIDED HISTORY:pleural effusion. spoke with Dr. Ram:Informed consent was obtained after a detailed explanation of the procedureincluding risks, benefits, and alternatives. [place] protocol wasperformed. The right chest was prepped and draped in sterile fashion andlocal anesthesia was achieved with lidocaine. An 5 Bolivian needle sheath wasadvanced under ultrasound guidance into pleural effusion and thoracentesiswas performed; ~ 150 mL of mildly serosanguineous fluid was removed. A 2ndpuncture again using 5 Bolivian needle sheath was used, a 0.018 inch guidewireintroduced, and a 6 [place]ivian pigtail catheter placed. Another 450 mL ofsimilar-appearing fluid was then aspirated. The patient tolerated theprocedure well.FINDINGS:A total of 700 mL was removed. As above, fluid was mildly serosanguineous.Small pneumothorax is noted following the procedure. Follow-up chest x-rayordered for 1 hour postprocedure. Patient has extensive emphysematouschanges.IMPRESSI ON: Successful CT guided thoracentesis. Small pneumothorax post thoracentesis.Chest x-ray ordered.Interpreted by:NADEGE Carrascoigned by:Fidel Link MD01/21/18inal result Normal [facility] Calcium, Ionicon 01-21-2018 Calcium mass conc 1.17 mmol/L Normal 1.13-1.33 [facility] Comment on above: Performed By: #### E RTPF, CONNER, LIP, LIVP, TEGCR ####[facility] TechnologyVkekclywcmui[address] [place], [place] [address] Creatinine,Random Uron 01-21 Creatinine mass conc 83.9 mg/dL Normal 39.0-259.0 [facility] Comment on above: Performed By: #### U RCRE, URNA ####[facility] [address] [place] [address] Lactate Dehydrog, Flon 01-21 LD - Fluid 382 U/L Normal [facility] Comment on above: Result Comment: Ther e are no normals for body fluid samples. Performed By: #### O HP, IOCAL ####[facility] [address] [place] [address] Type of Specimen .THORACENTESIS FLUID Normal [facility] Comment on above: Performed By: #### O HP, IOCAL ####[facility] [address] [place] [address] Lactate Dehydrogenaseon 01-03 LDH enzyme act/vol 278 U/L High 135-225 [facility] Comment on above: Performed By: #### O HP, IOCAL ####[address] [address] Lactic Acid,Whole Blon 01-21 Lactic Acid,Whole Bl 2.6 mmol/L High 0.7-2.1 [facility] Comment on above: Performed By: #### E RTPF, CONNER, LIP, LIVP, TEGCR ####[address] [address] MRI CERVICAL SPINE WO CONTRA STon 01-21-2018 [...] by:NADEGE Linigned by:Mariana Whitfield MD01/21/18inal result Normal [facility] Magnesiumon 01-21-2018 Magnesium mass conc 1.9 mg/dL Normal 1.6-2.6 [facility] Comment on above: Performed By: #### C BC, IPF, IOCAL, LACWB, BMP, MG, SHERRY ####[facility] [address] [place], [place] [id number] PLT, Immature Fract.on 01-21 Platelet, Fluoresc. 135 k/uL Low 138-453 [facility] Comment on above: Result Comment: ORDE RED BY LAB Performed By: #### E RTPF, CONNER, LIP, LIVP, TEGCR ####[facility] [address] [place], [place] 9[address] PLT, Immature Fract. 3.9 % Normal 1.1-10.3 [facility] Comment on above: Result Comment: ORDE RED BY LAB Performed By: #### E RTPF, CONNER, LIP, LIVP, TEGCR ####[facility] [address] [place] [address] Phosphorus, Inorg.on 018 Phosphorus, Inorg. 3.7 mg/dL Normal 2.5-4.5 [facility] Comment on above: Performed By: #### C BC, IPF, IOCAL, LACWB, BMP, MG, SHERRY ####[address] [place] [address] Protein, Totalon 01-21-2018 Protein mass conc 5.1 g/dL Low 6.4-8.3 [facility] Comment on above: Performed By: #### O HP, IOCAL ####[address] [place] [address] Protein,Tot,Fluidon 01-22-20 18 Protein mass conc 1.6 g/dL Normal [facility] Comment on above: Result Comment: Ther e are no normals for body fluid samples. Performed By: #### O HP, IOCAL ####[address] [address] Sodium, Random Uron 01-22-20 18 Na Conc. Urine 102 mmol/L Normal [facility] Comment on above: Result Comment: No n ormal range established. Performed By: #### U RCRE, URNA ####[address] [address] XR ABDOMEN (KUB) (SINGLE AP VIEW)on 01-21-2018 [...] approximately 10 cm.Interpreted by:NADEGE Diazigned by:Raul Currie MD01/21/18Final result Normal [facility] XR CHEST PORTABLEon 01-22-20 18 XR CHEST PORTABLE EXAMINATION:SINGLE X RAY VIEW OF THE CHEST01/21/2018 5:24 pmCOMPARISON:AP chest from 01/21/2018 at 10:36HISTORY:ORDERING SYSTEM PROVIDED HISTORY: 1 hour post thoraTECHNOLOGIST PROVIDED HISTORY:1 hour post thoraSmall pneumothorax noted post CT-guided thoracentesis.FINDINGS:[place] ing ECG monitor leads. Enteric tube tip and side hole below the lefthemidiaphragm. [place] and clips in the upper abdomen.Reduction size right pleural effusion. No significant pneumothoraxidentified. Extensive emphysematous and interstitial changes again noted, aswell as a left pleural effusion.Cardiomediastinal shadow on bony structures stable.IMPRESSION: Reduction right pleural effusion status post CT-guided thoracentesis. Nosignificant pneumothorax identified. Additional unchanged findings, as above.RECOMMENDATION:Chest x-ray follow-up in the a.m. assuming clinical stability.Interpreted by:NADEGE Carrascoigned by:Fidel Link MD01/21/18inal result Normal [facility] XR CHEST PORTABLE EXAMINATION:SINGLE X RAY [...] effusions and atelectasis.Interpreted by:NADEGE Diazigned by:Raul Currie MD01/21/18Final result Normal [facility] APTTon 01-20-2018 aPTT Coag time (Bld) 44.9 s High 20.5-30.5 [facility] Comment on above: Performed By: #### E RTPF, CONNER, LIP, LIVP, TEGCR ####[address] [place] [address] Basic Metabolic Profon 01-20 (cont.) Normal [facility] Comment on above: Result Comment: Aver age GFR for 50-59 years old: 93 mL/min/1.73sq mChronic Kidney Disease: <60 mL/min/1.73sq mKidney failure: <15 mL/min/1.73sq meGFR calculated using average adult body mass. Additional eGFR calculator available at:http://www.[employer].Peer5/multiple_crcl_2012.htm Performed By: #### E RTPF, CONNER, LIP, LIVP, TEGCR ####[facility] [address] [place] [address] Anion gap 3 molar conc 18 mmol/L High 9-17 [facility] Comment on above: Performed By: #### E RTPF, CONNER, LIP, LIVP, TEGCR ####[facility] [address] [place] [address] Calcium mass conc 7.5 mg/dL Low 8.6-10.4 [facility] Comment on above: Performed By: #### E RTPF, CONNER, LIP, LIVP, TEGCR ####[facility] [address] [place] [address] Chloride molar conc 103 mmol/L Normal 98-107 [facility] Comment on above: Performed By: #### E RTPF, CONNER, LIP, LIVP, TEGCR ####[address] [address] CO2 molar conc 17 mmol/L Low 20-31 [facility] Comment on above: Performed By: #### E RTPF, CONNER, LIP, LIVP, TEGCR ####[address] [address] Creatinine mass conc 0.38 mg/dL Low 0.70-1.20 [facility] Comment on above: Performed By: #### E RTPF, CONNER, LIP, LIVP, TEGCR ####[address] [address] GFR, Amer >60 Normal >60 [facility] Comment on above: Performed By: #### E RTPF, CONNER, LIP, LIVP, TEGCR ####[address] [address] GFR,non Amer >60 Normal >60 [facility] Comment on above: Performed By: #### E RTPF, CONNER, LIP, LIVP, TEGCR ####[address] [address] Glucose mass conc 80 mg/dL Normal 70-99 [facility] Comment on above: Performed By: #### E RTPF, CONNER, LIP, LIVP, TEGCR ####[address] [address] Potassium molar conc 4.3 mmol/L Normal 3.7-5.3 [facility] Comment on above: Performed By: #### E RTPF, CONNER, LIP, LIVP, TEGCR ####[address] [address] Sodium molar conc 138 mmol/L Normal 135-144 [facility] Comment on above: Performed By: #### E RTPF, CONNER, LIP, LIVP, TEGCR ####[address] [place] [address] Urea nitrogen mass conc 6 mg/dL Normal -20 [facility] Comment on above: Performed By: #### E RTPF, CONNER, LIP, LIVP, TEGCR ####[facility] [address] [place] [address] BUN/CRE Ratio NOT REPORTED Normal -20 [facility] Comment on above: Performed By: #### E RTPF, CONNER, LIP, LIVP, TEGCR ####[address] [place] [address] Staging: NOT REPORTED Normal [facility] Comment on above: Performed By: #### E RTPF, CONNER, LIP, LIVP, TEGCR ####[address] [address] (cont.) Normal [facility] Comment on above: Result Comment: Aver age GFR for 50-59 years old: 93 mL/min/1.73sq mChronic Kidney Disease: <60 mL/min/1.73sq mKidney failure: <15 mL/min/1.73sq meGFR calculated using average adult body mass. Additional eGFR calculator available at:http://www.[employer].Peer5/multiple_crcl_2012.htm Performed By: #### E RTPF, CONNER, LIP, LIVP, TEGCR ####[address] [place] [address] Anion gap 3 molar conc 17 mmol/L Normal -17 [facility] Comment on above: Performed By: #### E RTPF, CONNER, LIP, LIVP, TEGCR ####[address] [address] Calcium mass conc 7.1 mg/dL Low 8.6-10.4 [facility] Comment on above: Performed By: #### E RTPF, CONNER, LIP, LIVP, TEGCR ####[address] [place] [address] Chloride molar conc 102 mmol/L Normal 98-107 [facility] Comment on above: Performed By: #### E RTPF, CONNER, LIP, LIVP, TEGCR ####[address] [address] CO2 molar conc 16 mmol/L Low 20-31 [facility] Comment on above: Performed By: #### E RTPF, CONNER, LIP, LIVP, TEGCR ####[address] [address] Creatinine mass conc 0.44 mg/dL Low 0.70-1.20 [facility] Comment on above: Performed By: #### E RTPF, CONNER, LIP, LIVP, TEGCR ####[address] [address] GFR, Amer >60 Normal >60 [facility] Comment on above: Performed By: #### E RTPF, CONNER, LIP, LIVP, TEGCR ####[address] [address] GFR,non Amer >60 Normal >60 [facility] Comment on above: Performed By: #### E RTPF, CONNER, LIP, LIVP, TEGCR ####[address] [address] Glucose mass conc 89 mg/dL Normal 70-99 [facility] Comment on above: Performed By: #### E RTPF, CONNER, LIP, LIVP, TEGCR ####[address] [place] [address] Potassium molar conc 4.5 mmol/L Normal 3.7-5.3 [facility] Comment on above: Performed By: #### E RTPF, CONNER, LIP, LIVP, TEGCR ####[address] [address] Sodium molar conc 135 mmol/L Normal 135-144 [facility] Comment on above: Performed By: #### E RTPF, CONNER, LIP, LIVP, TEGCR ####[address] [address] Urea nitrogen mass conc 5 mg/dL Low -20 [facility] Comment on above: Performed By: #### E RTPF, CONNER, LIP, LIVP, TEGCR ####[address] [address] BUN/CRE Ratio NOT REPORTED Normal - [facility] Comment on above: Performed By: #### E RTPF, CONNER, LIP, LIVP, TEGCR ####[address] [address] Staging: NOT REPORTED Normal [facility] Comment on above: Performed By: #### E RTPF, CONNER, LIP, LIVP, TEGCR ####[address] [address] CBC with Diffon 01-20-2018 Abs. Basophil 0.00 k/uL Normal 0.0-0.2 [facility] Comment on above: Performed By: #### E RTPF, CONNER, LIP, LIVP, TEGCR ####[address] [address] Abs.Imm.Granulocyte 0.02 k/uL Normal 0.00-0.30 [facility] Comment on above: Performed By: #### E RTPF, CONNER, LIP, LIVP, TEGCR ####[address] [address] Abs.Neutrophil (Seg) 0.90 k/uL Low 1.8-7.7 [facility] Comment on above: Performed By: #### E RTPF, CONNER, LIP, LIVP, TEGCR ####[address] [address] Basophils/100 WBC Auto (Bld) 0 % Normal 0-2 [facility] Comment on above: Performed By: #### E RTPF, CONNER, LIP, LIVP, TEGCR ####[address] [address] Eosinophils Auto #/vol (Bld) 0.00 10*3/uL Normal 0.0-0.4 [facility] Comment on above: Performed By: #### E RTPF, CONNER, LIP, LIVP, TEGCR ####[address] [address] Eosinophils/100 WBC Auto (Bld) 0 % Low 1-4 [facility] Comment on above: Performed By: #### E RTPF, CONNER, LIP, LIVP, TEGCR ####[address] [address] Immature granulocytes #/vol (Bld) 1 % High 0 [facility] Comment on above: Performed By: #### E RTPF, CONNER, LIP, LIVP, TEGCR ####[address] [address] Lymphocytes Auto #/vol (Bld) 0.47 10*3/uL Low 1.0-4.8 [facility] Comment on above: Performed By: #### E RTPF, CONNER, LIP, LIVP, TEGCR ####[address] [address] Lymphocytes/100 WBC Auto (Bld) 31 % Normal 24-44 [facility] Comment on above: Performed By: #### E RTPF, CONNER, LIP, LIVP, TEGCR ####[address] [address] Monocytes Auto #/vol (Bld) 0.11 10*3/uL Normal 0.1-0.8 [facility] Comment on above: Performed By: #### E RTPF, CONNER, LIP, LIVP, TEGCR ####[address] [address] Monocytes/100 WBC Auto (Bld) 7 % Normal 1-7 [facility] Comment on above: Performed By: #### E RTPF, CONNER, LIP, LIVP, TEGCR ####[address] [address] Morphology Interp Eduard (Bld) ANISOCYTOSIS PRESENT Normal [facility] Comment on above: Performed By: #### E RTPF, CONNER, LIP, LIVP, TEGCR ####[address] [address] Neutrophil (Seg) 61 % Normal 36-66 [facility] Comment on above: Performed By: #### E RTPF, CONNER, LIP, LIVP, TEGCR ####[address] [address] NRBC Automated 0.0 per 100 WBC Normal 0.0 [facility] Comment on above: Performed By: #### E RTPF, CONNER, LIP, LIVP, TEGCR ####[address] [address] Platelet mean volume Auto Entitic volume (Bld) 9.9 fL Normal 8.1-13.5 [facility] Comment on above: Performed By: #### E RTPF, CONNER, LIP, LIVP, TEGCR ####[address] [address] Platelets Auto #/vol (Bld) 176 10*3/uL Normal 138-453 [facility] Comment on above: Performed By: #### E RTPF, CONNER, LIP, LIVP, TEGCR ####[place] [address] WBC Auto #/vol (Bld) 1.5 10*3/uL Low 3.5-11.3 [facility] Comment on above: Performed By: #### E RTPF, CONNER, LIP, LIVP, TEGCR ####[address] [address] Erythrocyte distribution width Auto Ratio (RBC) 16.1 % High 11.8-14.4 [facility] Comment on above: Performed By: #### E RTPF, CONNER, LIP, LIVP, TEGCR ####[address] [address] Hematocrit Auto Volume Fraction (Bld) 38.6 % Low 40.7-50.3 [facility] Comment on above: Performed By: #### E RTPF, CONNER, LIP, LIVP, TEGCR ####[place] [address] Hemoglobin mass conc (Bld) 12.4 g/dL Low 13.0-17.0 [facility] Comment on above: Performed By: #### E RTPF, CONNER, LIP, LIVP, TEGCR ####[address] [address] MCH Auto Entitic mass (RBC) 31.2 pg Normal 25.2-33.5 [facility] Comment on above: Performed By: #### E RTPF, CONNER, LIP, LIVP, TEGCR ####[address] [address] MCHC Auto mass conc (RBC) 32.1 g/dL Normal 28.4-34.8 [facility] Comment on above: Performed By: #### E RTPF, CONNER, LIP, LIVP, TEGCR ####[address] [address] MCV Auto Entitic volume (RBC) 97.2 fL Normal 82.6-102.9 [facility] Comment on above: Performed By: #### E RTPF, CONNER, LIP, LIVP, TEGCR ####[address] [address] RBC Auto #/vol (Bld) 3.97 10*6/uL Low 4.21-5.77 [facility] Comment on above: Performed By: #### E RTPF, CONNER, LIP, LIVP, TEGCR ####[address] [address] Auto Diff Performed NOT REPORTED Normal [facility] Comment on above: Performed By: #### E RTPF, CONNER, LIP, LIVP, TEGCR ####[address] [address] Platelets Auto #/vol (Bld) NOT REPORTED Normal [facility] Comment on above: Performed By: #### E RTPF, CONNER, LIP, LIVP, TEGCR ####[address] [address] RBC morphology finding Nom (Bld) NOT REPORTED Normal [facility] Comment on above: Performed By: #### E RTPF, CONNER, LIP, LIVP, TEGCR ####[address] [address] WBC Morphology NOT REPORTED Normal [facility] Comment on above: Performed By: #### E RTPF, CONNER, LIP, LIVP, TEGCR ####[address] [address] Abs. Basophil 0.00 k/uL Normal 0.0-0.2 [facility] Comment on above: Performed By: #### E RTPF, CONNER, LIP, LIVP, TEGCR ####[address] [address] Abs.Imm.Granulocyte 0.00 k/uL Normal 0.00-0.30 [facility] Comment on above: Performed By: #### E RTPF, CONNER, LIP, LIVP, TEGCR ####[address] [address] Abs.Neutrophil (Seg) 0.80 k/uL Low 1.8-7.7 [facility] Comment on above: Performed By: #### E RTPF, CONNER, LIP, LIVP, TEGCR ####[address] [address] Basophils/100 WBC Auto (Bld) 0 % Normal 0-2 [facility] Comment on above: Performed By: #### E RTPF, CONNER, LIP, LIVP, TEGCR ####[address] [address] Eosinophils Auto #/vol (Bld) 0.00 10*3/uL Normal 0.0-0.4 [facility] Comment on above: Performed By: #### E RTPF, CONNER, LIP, LIVP, TEGCR ####[address] [address] Eosinophils/100 WBC Auto (Bld) 0 % Low 1-4 [facility] Comment on above: Performed By: #### E RTPF, CONNER, LIP, LIVP, TEGCR ####[address] [address] Immature granulocytes #/vol (Bld) 0 % Normal 0 [facility] Comment on above: Performed By: #### E RTPF, CONNER, LIP, LIVP, TEGCR ####[address] [address] Lymphocytes Auto #/vol (Bld) 0.66 10*3/uL Low 1.0-4.8 [facility] Comment on above: Performed By: #### E RTPF, CONNER, LIP, LIVP, TEGCR ####[address] [address] Lymphocytes/100 WBC Auto (Bld) 39 % Normal 24-44 [facility] Comment on above: Performed By: #### E RTPF, CONNER, LIP, LIVP, TEGCR ####[address] [address] Monocytes Auto #/vol (Bld) 0.24 10*3/uL Normal 0.1-0.8 [facility] Comment on above: Performed By: #### E RTPF, CONNER, LIP, LIVP, TEGCR ####[address] [address] Monocytes/100 WBC Auto (Bld) 14 % High 1-7 [facility] Comment on above: Performed By: #### E RTPF, CONNER, LIP, LIVP, TEGCR ####[address] [address] Morphology Interp Eduard (Bld) Normal Normal [facility] Comment on above: Performed By: #### E RTPF, CONNER, LIP, LIVP, TEGCR ####[address] [address] Neutrophil (Seg) 47 % Normal 36-66 [facility] Comment on above: Performed By: #### E RTPF, CONNER, LIP, LIVP, TEGCR ####[address] [address] NRBC Automated 0.0 per 100 WBC Normal 0.0 [facility] Comment on above: Performed By: #### E RTPF, CONNER, LIP, LIVP, TEGCR ####[address] [address] Platelet mean volume Auto Entitic volume (Bld) 9.6 fL Normal 8.1-13.5 [facility] Comment on above: Performed By: #### E RTPF, CONNER, LIP, LIVP, TEGCR ####[address] [address] Platelets Auto #/vol (Bld) 171 10*3/uL Normal 138-453 [facility] Comment on above: Performed By: #### E RTPF, CONNER, LIP, LIVP, TEGCR ####[address] [address] WBC Auto #/vol (Bld) 1.7 10*3/uL Low 3.5-11.3 [facility] Comment on above: Performed By: #### E RTPF, CONNER, LIP, LIVP, TEGCR ####[address] [address] Erythrocyte distribution width Auto Ratio (RBC) 15.5 % High 11.8-14.4 [facility] Comment on above: Performed By: #### E RTPF, CONNER, LIP, LIVP, TEGCR ####[address] [address] Hematocrit Auto Volume Fraction (Bld) 38.5 % Low 40.7-50.3 [facility] Comment on above: Performed By: #### E RTPF, CONNER, LIP, LIVP, TEGCR ####[address] [address] Hemoglobin mass conc (Bld) 12.5 g/dL Low 13.0-17.0 [facility] Comment on above: Performed By: #### E RTPF, CONNER, LIP, LIVP, TEGCR ####[address] [address] MCH Auto Entitic mass (RBC) 31.2 pg Normal 25.2-33.5 [facility] Comment on above: Performed By: #### E RTPF, CONNER, LIP, LIVP, TEGCR ####[address] [address] MCHC Auto mass conc (RBC) 32.5 g/dL Normal 28.4-34.8 [facility] Comment on above: Performed By: #### E RTPF, CONNER, LIP, LIVP, TEGCR ####[address] [address] MCV Auto Entitic volume (RBC) 96.0 fL Normal 82.6-102.9 [facility] Comment on above: Performed By: #### E RTPF, CONNER, LIP, LIVP, TEGCR ####[address] [address] RBC Auto #/vol (Bld) 4.01 10*6/uL Low 4.21-5.77 [facility] Comment on above: Performed By: #### E RTPF, CONNER, LIP, LIVP, TEGCR ####[address] [address] Auto Diff Performed NOT REPORTED Normal [facility] Comment on above: Performed By: #### E RTPF, CONNER, LIP, LIVP, TEGCR ####[address] [address] Platelets Auto #/vol (Bld) NOT REPORTED Normal [facility] Comment on above: Performed By: #### E RTPF, CONNER, LIP, LIVP, TEGCR ####[address] [address] RBC morphology finding Nom (Bld) NOT REPORTED Normal [facility] Comment on above: Performed By: #### E RTPF, CONNER, LIP, LIVP, TEGCR ####[address] [address] WBC Morphology NOT REPORTED Normal [facility] Comment on above: Performed By: #### E RTPF, CONNER, LIP, LIVP, TEGCR ####[address] [address] Calcium, Ionicon 01-20-2018 Calcium mass conc 1.13 mmol/L Normal 1.13-1.33 [facility] Comment on above: Performed By: #### E RTPF, CONNER, LIP, LIVP, TEGCR ####[address] [address] Calcium mass conc 1.06 mmol/L Low 1.13-1.33 [facility] Comment on above: Performed By: #### E RTPF, CONNER, LIP, LIVP, TEGCR ####[address] [address] Calcium mass conc 1.36 mmol/L High 1.13-1.33 [facility] Comment on above: Performed By: #### E RTPF, CONNER, LIP, LIVP, TEGCR ####[address] [address] Fibrinogenon 01-20-2018 Fibrinogen <80 Critically low 140-420 [facility] Comment on above: Result Comment: TEST CONFIRMED Performed By: #### E RTPF, CONNER, LIP, LIVP, TEGCR ####[facility] [address] [place] [address] Lactic Acid,Whole Blon 01-20 Lactic Acid,Whole Bl 3.2 mmol/L High 0.7-2.1 [facility] Comment on above: Performed By: #### E RTPF, CONNER, LIP, LIVP, TEGCR ####[facility] [address] [place] [address] Lactic Acid,Whole Bl 5.6 mmol/L High 0.7-2.1 [facility] Comment on above: Performed By: #### E RTPF, CONNER, LIP, LIVP, TEGCR ####[facility] [place] [address] Lactic Acid,Whole Bl 5.9 mmol/L High 0.7-2.1 [facility] Comment on above: Performed By: #### E RTPF, CONNER, LIP, LIVP, TEGCR ####[facility] [place] [address] Liver Profileon 01-20-2018 Albumin mass conc 2.3 g/dL Low 3.5-5.2 [facility] Comment on above: Performed By: #### E RTPF, CONNER, LIP, LIVP, TEGCR ####[facility] [id number] [place] [address] Albumin/Globulin mass ratio 1.4 {ratio} Normal 1.0-2.5 [facility] Comment on above: Performed By: #### E RTPF, CONNER, LIP, LIVP, TEGCR ####[facility] [address] [place] [address] Alkaline Phos 54 U/L Normal 40-129 [facility] Comment on above: Performed By: #### E RTPF, CONNER, LIP, LIVP, TEGCR ####[address] [place] [address] ALT enzyme act/vol 22 U/L Normal 5-41 [facility] Comment on above: Performed By: #### E RTPF, CONNER, LIP, LIVP, TEGCR ####[facility] [place] [address] AST enzyme act/vol 48 U/L High <40 [facility] Comment on above: Performed By: #### E RTPF, CONNER, LIP, LIVP, TEGCR ####[address] [place] [address] Bilirubin Ql (U) 0.97 mg/dL Normal 0.3-1.2 [facility] Comment on above: Performed By: #### E RTPF, CONNER, LIP, LIVP, TEGCR ####[address] [address] Bilirubin, Indirect 0.24 mg/dL Normal 0.00-1.00 [facility] Comment on above: Performed By: #### E RTPF, CONNER, LIP, LIVP, TEGCR ####[facility] [place] [address] Bilirubin.direct mass conc 0.73 mg/dL High <0.31 [facility] Comment on above: Performed By: #### E RTPF, CONNER, LIP, LIVP, TEGCR ####[facility] [place] [address] Protein mass conc 3.9 g/dL Low 6.4-8.3 [facility] Comment on above: Performed By: #### E RTPF, CONNER, LIP, LIVP, TEGCR ####[facility] [place] [address] Globulin Calculated mass conc (S) NOT REPORTED Normal 1.5-3.8 [facility] Comment on above: Performed By: #### E RTPF, CONNER, LIP, LIVP, TEGCR ####[address] [address] MRSA, DNA, Nasalon 8 MRSA, DNA, Nasal NEGATIVE: MRSA DNA n ot detected by nucleic acid amplification. Normal NMRSAA [facility] Comment on above: Result Comment: Resu lts should be used as an adjunct to nosocomial control efforts to identify patients needing enhanced precautions.The test is not intended to identify patients with staphylococcal infections. Results should not be used to guide or monitor treatment for MRSA infections. Performed By: #### E RTPF, CONNER, LIP, LIVP, TEGCR ####[address] [address] Specimen Description .NASAL SWAB Normal [facility] Comment on above: Performed By: #### E RTPF, CONNER, LIP, LIVP, TEGCR ####[address] [address] Magnesiumon 01-20-2018 Magnesium mass conc 1.7 mg/dL Normal 1.6-2.6 [facility] Comment on above: Performed By: #### E RTPF, CONNER, LIP, LIVP, TEGCR ####[address] [address] Magnesium mass conc 1.2 mg/dL Low 1.6-2.6 [facility] Comment on above: Performed By: #### E RTPF, CONNER, LIP, LIVP, TEGCR ####[address] [address] Magnesium mass conc 1.1 mg/dL Low 1.6-2.6 [facility] Comment on above: Performed By: #### E RTPF, CONNER, LIP, LIVP, TEGCR ####[address] [address] OPERATIVE REPORTon 8 OPERATIVE REPORT [address] [address] OPERATIVE REPORTPATIENT NAME: ALEJO FLOYD : 1960MED REC NO: [id number] ROOM: 0102ACCOUNT NO: [id number] ADMIT DATE: 01/19/2018PROVIDER: Ele MottDATE OF PROCEDURE: [...] L1 burst fracture. [facility] On [...] we turned our attention to performing a [id number]-[id number] ileocolonicanastomosis. A EWELINA blue load 75 was [...] was made using #0 looped PDS from tsyafggj-mq-rqxbpzhm iwyhkteefcn-sw-jqaagudc tying in the middle. Once the abdomen [...] present for the entirety of the procedure.ELE OLMEDO: 01/20/2018 4:44:47 [id number]#: [id number] Doc#: [id number]: Morgan Willett Hodansenia Normal [facility] Open Heart Panelon 8 Josue Test INFORMATION NOT PROVIDED Normal [facility] Comment on above: Performed By: #### E RTPF, CONNER, LIP, LIVP, TEGCR ####[address] [address] Body Temp. 37.0 Normal [facility] Comment on above: Performed By: #### E RTPF, CONNER, LIP, LIVP, TEGCR ####[address] [address] Carboxy Hgb 3.8 % Normal 0-5 [facility] Comment on above: Result Comment: Refe rence Range:Non-Smokers 0-2%Average Smoker 2-4%Heavy Smoker <10% Performed By: #### E RTPF, CONNER, LIP, LIVP, TEGCR ####[address] [address] FIO2 INFORMATION NOT PROVIDED Normal [facility] Comment on above: Performed By: #### E RTPF, CONNER, LIP, LIVP, TEGCR ####[address] [address] Glucose mass conc 73 mg/dL Low 75-110 [facility] Comment on above: Performed By: #### E RTPF, CONNER, LIP, LIVP, TEGCR ####[address] [address] HCO3 molar conc (Bld) 13.7 mmol/L Low 22-27 [facility] Comment on above: Performed By: #### E RTPF, CONNER, LIP, LIVP, TEGCR ####[address] [address] Negative Base Excess 15.6 mmol/L High 0.0-2.0 [facility] Comment on above: Performed By: #### E RTPF, CONNER, LIP, LIVP, TEGCR ####[address] [address] Oxygen ppres (BldA) 198.0 mm[Hg] High 75-95 [facility] Comment on above: Performed By: #### E RTPF, CONNER, LIP, LIVP, TEGCR ####[address] [address] Oxygen saturation in Blood 98.8 % Normal 94-100 [facility] Comment on above: Performed By: #### E RTPF, CONNER, LIP, LIVP, TEGCR ####[address] [address] pCO2 47.1 mmHg High 32-45 [facility] Comment on above: Performed By: #### E RTPF, CONNER, LIP, LIVP, TEGCR ####[address] [address] pH (Bld) 7.092 [pH] Critically low 7.350-7.45 0 [facility] Comment on above: Performed By: #### E RTPF, CONNER, LIP, LIVP, TEGCR ####[address] [address] Chloride molar conc 112 mmol/L High 98-110 [facility] Comment on above: Performed By: #### E RTPF, CONNER, LIP, LIVP, TEGCR ####[address] [place] [address] Hematocrit Auto Volume Fraction (Bld) 36.2 % Normal [facility] Comment on above: Performed By: #### E RTPF, CONNER, LIP, LIVP, TEGCR ####[address] [place] [address] Hemoglobin mass conc (Bld) 11.7 g/dL Normal [facility] Comment on above: Performed By: #### E RTPF, CONNER, LIP, LIVP, TEGCR ####[address] [place] [address] Potassium molar conc 4.2 mmol/L Normal 3.6-5.0 [facility] Comment on above: Performed By: #### E RTPF, CONNER, LIP, LIVP, TEGCR ####[address] [address] Sodium molar conc 130 mmol/L Low 136-145 [facility] Comment on above: Performed By: #### E RTPF, CONNER, LIP, LIVP, TEGCR ####[address] [address] PTon 01-20-2018 INR Coag RelTime (PPP) 1.6 {INR} Normal [facility] Comment on above: Result Comment: Ther apeutic Range: Moderate Anticoagulant Intensity: INR = 2.0-3.0 High Anticoagulant Intensity: INR = 2.5-3.5 Performed By: #### E RTPF, CONNER, LIP, LIVP, TEGCR ####[address] [address] Prothrombin time (PT) Coag time (PPP) 16.9 s High 9.0-12.0 [facility] Comment on above: Performed By: #### E RTPF, CONNER, LIP, LIVP, TEGCR ####[address] [place] [address] Phosphorus, Inorg.on 018 Phosphorus, Inorg. 3.1 mg/dL Normal 2.5-4.5 [facility] Comment on above: Performed By: #### E RTPF, CONNER, LIP, LIVP, TEGCR ####[address] [address] Phosphorus, Inorg. 3.5 mg/dL Normal 2.5-4.5 [facility] Comment on above: Performed By: #### E RTPF, CONNER, LIP, LIVP, TEGCR ####[address] [address] Platelet Counton 01-20-2018 Platelets Auto #/vol (Bld) 142 10*3/uL Normal 138-453 [facility] Comment on above: Performed By: #### E RTPF, CONNER, LIP, LIVP, TEGCR ####[address] [address] Platelets,Transfuseon 2017 Platelets,Transfuse Unit Number [id number] Blood Component Type Leukocyte Reduced Irradiated Plateletpheresis Unit Division 00 Status of Unit TRANSFUSED Transfusion Status OK TO TRANSFUSE Normal [facility] Comment on above: Performed By: #### T PLT ####[address] [address] TEG, Rapid Citratedon 2017 ACT TEG 113.0 sec Normal 86-118 [facility] Comment on above: Performed By: #### E RTPF, CONNER, LIP, LIVP, TEGCR ####[address] [address] Angle, Rapid TEG 62.2 deg Low 64-80 [facility] Comment on above: Performed By: #### E RTPF, CONNER, LIP, LIVP, TEGCR ####[address] [address] EPL TEG 0.6 % Normal 0.0-15.0 [facility] Comment on above: Performed By: #### E RTPF, CONNER, LIP, LIVP, TEGCR ####[address] [address] Heparin Therapy: None Normal [facility] Comment on above: Performed By: #### E RTPF, CONNER, LIP, LIVP, TEGCR ####[address] [address] K (Kinetics) rTEG 2.4 min High 1.0-2.0 [facility] Comment on above: Performed By: #### E RTPF, CONNER, LIP, LIVP, TEGCR ####[address] [address] LY30 (Lysis) TEG 0.6 % Normal 0-8 [facility] Comment on above: Performed By: #### E RTPF, CONNER, LIP, LIVP, TEGCR ####[address] [address] MA Rapid TEG 54.9 mm Normal 52-71 [facility] Comment on above: Performed By: #### E RTPF, CONNER, LIP, LIVP, TEGCR ####[address] [address] R(Reaction Time)rTEG 0.7 min Normal 0.0-1.0 [facility] Comment on above: Performed By: #### E RTPF, CONNER, LIP, LIVP, TEGCR ####[address] [address] TEG Comment ACT is the only FDA approved component of the Rapid TEG. Normal [facility] Comment on above: Performed By: #### E RTPF, CONNER, LIP, LIVP, TEGCR ####[address] [address] ACT TEG 183.0 sec High 86-118 [facility] Comment on above: Performed By: #### E RTPF, CONNER, LIP, LIVP, TEGCR ####[address] [address] Angle, Rapid TEG 45.2 deg Low 64-80 [facility] Comment on above: Performed By: #### E RTPF, CONNER, LIP, LIVP, TEGCR ####[address] [address] EPL TEG 0 % Normal 0.0-15.0 [facility] Comment on above: Performed By: #### E RTPF, CONNER, LIP, LIVP, TEGCR ####[address] [address] Heparin Therapy: INFORMATION NOT PROVIDED [facility] Comment on above: Performed By: #### E RTPF, CONNER, LIP, LIVP, TEGCR ####[address] [address] K (Kinetics) rTEG 4.6 min High 1.0-2.0 [facility] Comment on above: Performed By: #### E RTPF, CONNER, LIP, LIVP, TEGCR ####[address] [address] LY30 (Lysis) TEG 0 % Normal 0-8 [facility] Comment on above: Performed By: #### E RTPF, CONNER, LIP, LIVP, TEGCR ####[address] [address] MA Rapid TEG 41.9 mm Low 52-71 [facility] Comment on above: Performed By: #### E RTPF, CONNER, LIP, LIVP, TEGCR ####[address] [address] R(Reaction Time)rTEG 1.4 min High 0.0-1.0 [facility] Comment on above: Performed By: #### E RTPF, CONNER, LIP, LIVP, TEGCR ####[address] [address] TEG Comment ACT is the only FDA approved component of the Rapid TEG. Normal [facility] Comment on above: Performed By: #### E RTPF, CONNER, LIP, LIVP, TEGCR ####[address] [address] UA w/Reflex Cultureon 2017 Acetoacetic Acid,Ur Negative Normal NEG [facility] Comment on above: Performed By: #### E RTPF, CONNER, LIP, LIVP, TEGCR ####[address] [address] Bilirubin, SemiQt,Ur Negative Normal NEG [facility] Comment on above: Performed By: #### E RTPF, CONNER, LIP, LIVP, TEGCR ####[address] [address] Color ORANGE Abnormal YEL [facility] Comment on above: Result Comment: INTE RPRET WITH CAUTION DUE TO INTENSE COLOR OF URINE. Performed By: #### E RTPF, CONNER, LIP, LIVP, TEGCR ####[address] [address] Glucose,Semi-qnt,Ur Negative Normal NEG [facility] Comment on above: Performed By: #### E RTPF, CONNER, LIP, LIVP, TEGCR ####[address] [address] Hemoglobin, Ur Negative Normal NEG [facility] Comment on above: Performed By: #### E RTPF, CONNER, LIP, LIVP, TEGCR ####[address] [address] Leuckocyte Esterase Negative Normal NEG [facility] Comment on above: Performed By: #### E RTPF, CONNER, LIP, LIVP, TEGCR ####[address] [address] Nitrite,Ur Negative Normal NEG [facility] Comment on above: Performed By: #### E RTPF, CONNER, LIP, LIVP, TEGCR ####[address] [address] PH,Ur 5.5 Normal 5.0-8.0 [facility] Comment on above: Performed By: #### E RTPF, CONNER, LIP, LIVP, TEGCR ####[address] [address] Protein, Semi-qnt,Ur Negative Normal NEG [facility] Comment on above: Performed By: #### E RTPF, CONNER, LIP, LIVP, TEGCR ####[address] [address] Spec. [place],Ur 1.027 Normal 1.005-1.03 0 [facility] Comment on above: Performed By: #### E RTPF, CONNER, LIP, LIVP, TEGCR ####[address] [address] Turbidity CLEAR Normal CLEAR [facility] Comment on above: Performed By: #### E RTPF, CONNER, LIP, LIVP, TEGCR ####[address] [address] Urobilinogen,Ur Normal Normal NORM [facility] Comment on above: Performed By: #### E RTPF, CONNER, LIP, LIVP, TEGCR ####[address] [address] Comment NOT REPORTED Normal [facility] Comment on above: Performed By: #### E RTPF, CONNER, LIP, LIVP, TEGCR ####[address] [address] Urinalysis,Microon 8 ----- Normal [facility] Comment on above: Performed By: #### E RTPF, CONNER, LIP, LIVP, TEGCR ####[address] [address] Casts 2 TO 5 HYALINE Normal 0-8 [facility] Comment on above: Result Comment: Refe rence range defined for non-centrifuged specimen. Performed By: #### E RTPF, CONNER, LIP, LIVP, TEGCR ####[address] [address] Epithelial cells 0 TO 2 Normal 0-5 [facility] Comment on above: Performed By: #### E RTPF, CONNER, LIP, LIVP, TEGCR ####[address] [address] RBC Test strip #/vol (U) None Normal 0-4 [facility] Comment on above: Result Comment: Refe rence range defined for non-centrifuged specimen. Performed By: #### E RTPF, CONNER, LIP, LIVP, TEGCR ####[address] [address] Urine WBC's None Normal 0-5 [facility] Comment on above: Performed By: #### E RTPF, CONNER, LIP, LIVP, TEGCR ####[address] [address] Amorphous Sediment NOT REPORTED Normal NONE [facility] Comment on above: Performed By: #### E RTPF, CONNER, LIP, LIVP, TEGCR ####[address] [place] [address] Bacteria NOT REPORTED Normal NONE [facility] Comment on above: Performed By: #### E RTPF, CONNER, LIP, LIVP, TEGCR ####[address] [address] Crystals NOT REPORTED Normal NONE [facility] Comment on above: Performed By: #### E RTPF, CONNER, LIP, LIVP, TEGCR ####[address] [address] Epithelial, Renal NOT REPORTED Normal 0 [facility] Comment on above: Performed By: #### E RTPF, CONNER, LIP, LIVP, TEGCR ####[address] [address] Mucus Strands NOT REPORTED Normal NONE [facility] Comment on above: Performed By: #### E RTPF, CONNER, LIP, LIVP, TEGCR ####[address] [address] Other Observations NOT REPORTED Normal NREQ [facility] Comment on above: Performed By: #### E RTPF, CONNER, LIP, LIVP, TEGCR ####[address] [address] Trichomonas NOT REPORTED Normal NONE [facility] Comment on above: Performed By: #### E RTPF, CONNER, LIP, LIVP, TEGCR ####[address] [address] Yeast NOT REPORTED Normal NONE [facility] Comment on above: Performed By: #### E RTPF, CONNER, LIP, LIVP, TEGCR ####[address] [address] XR CHEST PORTABLEon 01-21-20 18 XR CHEST [...] follow-up is recommended.Interpreted by:NADEGE Wrightigned by:Cassie Guzmán MD01/20/18inal result Normal [facility] XR CHEST PORTABLE EXAMINATION:SINGLE X RAY [...] a licensed caregiver.Interpreted by:NADEGE Gonzalezigned by:Jonathan Rodríguez MD01/19/18inal result Normal [facility] Amylaseon 01-19-2018 Amylase enzyme act/vol 224 U/L High 28-100 [facility] Comment on above: Performed By: #### E RTPF, CONNER, LIP, LIVP, TEGCR ####[address] [place] [address] CTA ABDOMEN PELVIS W CONTRAS Ton 01-19-2018 [...] called by Dr. Chandan Quintanilla to ELE K TIERA on01/19/2018 at 19:43.Interpreted by:NADEGE Velazquezigned by:Chandna Quintanilla MD01/19/18inal result Normal [facility] Calcium, Ionicon 01-19-2018 Calcium mass conc 1.13 mmol/L Normal 1.13-1.33 [facility] Comment on above: Performed By: #### O HP, IOCAL ####[address] [address] Calcium mass conc 1.01 mmol/L Low 1.13-1.33 [facility] Comment on above: Performed By: #### O HP, IOCAL ####[address] [id number] FFP, Transfuseon 01-19-2018 FFP, Transfuse Unit Number [id number] Blood Component Type Fresh Plasma Unit Division 00 Status of Unit TRANSFUSED Transfusion Status OK TO TRANSFUSE Unit Number [id number] Blood Component Type Fresh Plasma Unit Division 00 Status of Unit TRANSFUSED Transfusion Status OK TO TRANSFUSE Normal [facility] Comment on above: Performed By: #### E RTPF, CONNER, LIP, LIVP, TEGCR ####[address] [address] Lipaseon 01-19-2018 Lipase enzyme act/vol 98 U/L High 13-60 [facility] Comment on above: Performed By: #### E RTPF, CONNER, LIP, LIVP, TEGCR ####[address] [address] Liver Profileon 01-19-2018 Albumin mass conc 2.6 g/dL Low 3.5-5.2 [facility] Comment on above: Performed By: #### E RTPF, CONNER, LIP, LIVP, TEGCR ####[address] [place] [address] Albumin/Globulin mass ratio 1.3 {ratio} Normal 1.0-2.5 [facility] Comment on above: Performed By: #### E RTPF, CONNER, LIP, LIVP, TEGCR ####[address] [place] [address] Alkaline Phos 77 U/L Normal 40-129 [facility] Comment on above: Performed By: #### E RTPF, CONNER, LIP, LIVP, TEGCR ####[address] [address] ALT enzyme act/vol 18 U/L Normal 5-41 [facility] Comment on above: Performed By: #### E RTPF, CONNER, LIP, LIVP, TEGCR ####[address] [address] AST enzyme act/vol 38 U/L Normal <40 [facility] Comment on above: Performed By: #### E RTPF, CONNER, LIP, LIVP, TEGCR ####[facility] [place] [address] Bilirubin Ql (U) 0.53 mg/dL Normal 0.3-1.2 [facility] Comment on above: Performed By: #### E RTPF, CONNER, LIP, LIVP, TEGCR ####[facility] [place] [address] Bilirubin, Indirect 0.38 mg/dL Normal 0.00-1.00 [facility] Comment on above: Performed By: #### E RTPF, CONNER, LIP, LIVP, TEGCR ####[facility] [place] [address] Bilirubin.direct mass conc 0.15 mg/dL Normal <0.31 [facility] Comment on above: Performed By: #### E RTPF, CONNER, LIP, LIVP, TEGCR ####[address] [place] [address] Protein mass conc 4.6 g/dL Low 6.4-8.3 [facility] Comment on above: Performed By: #### E RTPF, CONNER, LIP, LIVP, TEGCR ####[address] [address] Globulin Calculated mass conc (S) NOT REPORTED Normal 1.5-3.8 [facility] Comment on above: Performed By: #### E RTPF, CONNER, LIP, LIVP, TEGCR ####[address] [address] Open Heart Panelon 8 Methemoglobin NOT REPORTED Normal 0.0-1.5 [facility] Comment on above: Performed By: #### E RTPF, CONNER, LIP, LIVP, TEGCR ####[address] [address] Mode NOT REPORTED Normal [facility] Comment on above: Performed By: #### E RTPF, CONNER, LIP, LIVP, TEGCR ####[address] [address] Notification Time NOT REPORTED Normal [facility] Comment on above: Performed By: #### E RTPF, CONNER, LIP, LIVP, TEGCR ####[address] [address] Notification: NOT REPORTED Normal [facility] Comment on above: Performed By: #### E RTPF, CONNER, LIP, LIVP, TEGCR ####[address] [address] O2 Device/Flow/% NOT REPORTED Normal [facility] Comment on above: Performed By: #### E RTPF, CONNER, LIP, LIVP, TEGCR ####[address] [address] Oxyhemoglobin NOT REPORTED Normal 95.0-98.0 [facility] Comment on above: Performed By: #### E RTPF, CONNER, LIP, LIVP, TEGCR ####[address] [address] pCO2 Adj'd for Temp NOT REPORTED Normal 32-45 [facility] Comment on above: Performed By: #### E RTPF, CONNER, LIP, LIVP, TEGCR ####[address] [address] PEEP/CPAP NOT REPORTED Normal [facility] Comment on above: Performed By: #### E RTPF, CONNER, LIP, LIVP, TEGCR ####[address] [address] pH Adjst'd for Temp. NOT REPORTED Normal 7.350-7 .45 0 [facility] Comment on above: Performed By: #### E RTPF, CONNER, LIP, LIVP, TEGCR ####[address] [address] pO2 Adjst'd for Temp NOT REPORTED Normal 75-95 [facility] Comment on above: Performed By: #### E RTPF, CONNER, LIP, LIVP, TEGCR ####[address] [address] Positive Base Excess NOT REPORTED Normal 0.0-2.0 [facility] Comment on above: Performed By: #### E RTPF, CONNER, LIP, LIVP, TEGCR ####[address] [address] PSV NOT REPORTED Normal [facility] Comment on above: Performed By: #### E RTPF, CONNER, LIP, LIVP, TEGCR ####[address] [address] Pt. Position NOT REPORTED Normal [facility] Comment on above: Performed By: #### E RTPF, CONNER, LIP, LIVP, TEGCR ####[address] [address] Set Rate NOT REPORTED Normal [facility] Comment on above: Performed By: #### E RTPF, CONNER, LIP, LIVP, TEGCR ####[address] [address] Site Drawn NOT REPORTED Normal [facility] Comment on above: Performed By: #### E RTPF, CONNER, LIP, LIVP, TEGCR ####[address] [address] Text for Respiratory NOT REPORTED Normal [facility] Comment on above: Performed By: #### E RTPF, CONNER, LIP, LIVP, TEGCR ####[address] [address] Total Hb NOT REPORTED Normal 12.0-16.0 [facility] Comment on above: Performed By: #### E RTPF, CONNER, LIP, LIVP, TEGCR ####[address] [address] Total Rate NOT REPORTED Normal [facility] Comment on above: Performed By: #### E RTPF, CONNER, LIP, LIVP, TEGCR ####[address] [address] VT NOT REPORTED Normal [facility] Comment on above: Performed By: #### E RTPF, CONNER, LIP, LIVP, TEGCR ####[facility] [place] [address] Josue Test INFORMATION NOT PROVIDED Normal [facility] Comment on above: Performed By: #### O HP, IOCAL ####[address]ids[address]30 [place] [address] Body Temp. 37.0 Normal [facility] Comment on above: Performed By: #### O HP, IOCAL ####[address]wr[address]6544 [place] [address] Carboxy Hgb 4.3 % Normal 0-5 [facility] Comment on above: Result Comment: Refe rence Range:Non-Smokers 0-2%Average Smoker 2-4%Heavy Smoker <10% Performed By: #### O HP, IOCAL ####[facility] [address] [place] [address] Chloride molar conc 112 mmol/L High 98-110 [facility] Comment on above: Performed By: #### O HP, IOCAL ####[facility] Uqieerrqxkhi7055 [place] [address] FIO2 INFORMATION NOT PROVIDED Normal [facility] Comment on above: Performed By: #### O HP, IOCAL ####[facility] Yikkiqdnpmpq3660 [place] [address] Glucose mass conc 71 mg/dL Low 75-110 [facility] Comment on above: Performed By: #### O HP, IOCAL ####[facility] Ifezflzjlfne5674 [place] [address] HCO3 molar conc (Bld) 11.7 mmol/L Low 22-27 [facility] Comment on above: Performed By: #### O HP, IOCAL ####[facility] Mxucvqwqbqqg5302 [place] [address] Hematocrit Auto Volume Fraction (Bld) 36.1 % Normal [facility] Comment on above: Performed By: #### O HP, IOCAL ####[employer] Wiyyznkpoxjm6802 [place] [address] Hemoglobin mass conc (Bld) 11.7 g/dL Normal [facility] Comment on above: Performed By: #### O HP, IOCAL ####[facility] Zypgckbgfiaq0460 [place] [address] Negative Base Excess 17.8 mmol/L High 0.0-2.0 [facility] Comment on above: Performed By: #### O HP, IOCAL ####[facility] Tqnlypexejrv1540 [place] [address] Oxygen ppres (BldA) 214.0 mm[Hg] High 75-95 [facility] Comment on above: Performed By: #### O HP, IOCAL ####[facility] Yighcaxzovdo4739 [place] [address] Oxygen saturation in Blood 98.7 % Normal 94-100 [facility] Comment on above: Performed By: #### O HP, IOCAL ####[facility] Jbcmyvgxhtvn6741 [place] [address] pCO2 42.6 mmHg Normal 32-45 [facility] Comment on above: Performed By: #### O HP, IOCAL ####[facility] Vbzvwkcdfvjb8393 [place] [address] pH (Bld) 7.069 [pH] Critically low 7.350-7.45 0 [facility] Comment on above: Performed By: #### O HP, IOCAL ####[facility] Zrtyqlwiozgi1649 [place] [address] Potassium molar conc 4.0 mmol/L Normal 3.6-5.0 [facility] Comment on above: Performed By: #### O HP, IOCAL ####[facility] Pckpgiaesdwy9555 [place] [address] Sodium molar conc 130 mmol/L Low 136-145 [facility] Comment on above: Performed By: #### O HP, IOCAL ####[address] Dasdcapgkjpv3046 [place] [address] Methemoglobin NOT REPORTED Normal 0.0-1.5 [facility] Comment on above: Performed By: #### O HP, IOCAL ####[address] [place] [address] Mode NOT REPORTED Normal [facility] Comment on above: Performed By: #### O HP, IOCAL ####[facility] [address]upyqbcl[address] [place] [address] Notification Time NOT REPORTED Normal [facility] Comment on above: Performed By: #### O HP, IOCAL ####[facility] [address]zjnowlwya[address] [place] [address] Notification: NOT REPORTED Normal [facility] Comment on above: Performed By: #### O HP, IOCAL ####[facility] [address]ob[address]bsab[address] [place] [address] O2 Device/Flow/% NOT REPORTED Normal [facility] Comment on above: Performed By: #### O HP, IOCAL ####[facility] [address] [place] [address] Oxyhemoglobin NOT REPORTED Normal 95.0-98.0 [facility] Comment on above: Performed By: #### O HP, IOCAL ####[facility] Nlsrskzrlwln8928 [place] [address] pCO2 Adj'd for Temp NOT REPORTED Normal 32-45 [facility] Comment on above: Performed By: #### O HP, IOCAL ####[facility] [address]udlxwn[address] [place] [address] PEEP/CPAP NOT REPORTED Normal [facility] Comment on above: Performed By: #### O HP, IOCAL ####[address] H[address]htkmobryt2320 [place] [address] pH Adjst'd for Temp. NOT REPORTED Normal 7.350-7 .45 0 [facility] Comment on above: Performed By: #### O HP, IOCAL ####[address] Tgmuqzsehned4117 [place] [address] pO2 Adjst'd for Temp NOT REPORTED Normal 75-95 [facility] Comment on above: Performed By: #### O HP, IOCAL ####[facility] Dwainaqpvcnp4242 [place] [address] Positive Base Excess NOT REPORTED Normal 0.0-2.0 [facility] Comment on above: Performed By: #### O HP, IOCAL ####[facility] Uenes[address]yj[address] [place] [address] PSV NOT REPORTED Normal [facility] Comment on above: Performed By: #### O HP, IOCAL ####[address] Eugwfppioicd0437 [place] [address] Pt. Position NOT REPORTED Normal [facility] Comment on above: Performed By: #### O HP, IOCAL ####[address] Xfcgeezxezfi8032 [place] [address] Set Rate NOT REPORTED Normal [facility] Comment on above: Performed By: #### O HP, IOCAL ####[facility] Ymthyonkjzxq7114 [place] [address] Site Drawn NOT REPORTED Normal [facility] Comment on above: Performed By: #### O HP, IOCAL ####[facility] Obuuslhmtfrx4511 [place] [address] Text for Respiratory NOT REPORTED Normal [facility] Comment on above: Performed By: #### O HP, IOCAL ####[address] Vikmcubxyica4104 [place] [address] Total Hb NOT REPORTED Normal 12.0-16.0 [facility] Comment on above: Performed By: #### O HP, IOCAL ####[address] Wjpdgoxitlvt9143 [place] [address] Total Rate NOT REPORTED Normal [facility] Comment on above: Performed By: #### O HP, IOCAL ####[address] Zgwjzjkoifah2448 [place] [address] [place] NOT REPORTED Normal [facility] Comment on above: Performed By: #### O HP, IOCAL ####[address] Gsjhuacvuatq4453 [place] [address] Josue Test INFORMATION NOT PROVIDED Normal [facility] Comment on above: Performed By: #### O HP, IOCAL ####[facility] Ngnzuitrdejq7366 [place] [address] Body Temp. 37.0 Normal [facility] Comment on above: Performed By: #### O HP, IOCAL ####[address] Vpvhhahqlndi0849 [place] [address] Carboxy Hgb 4.8 % Normal 0-5 [facility] Comment on above: Result Comment: Refe rence Range:Non-Smokers 0-2%Average Smoker 2-4%Heavy Smoker <10% Performed By: #### O HP, IOCAL ####[address] Qfnprqxolzgx8701 [place] [address] Chloride molar conc 109 mmol/L Normal 98-110 [facility] Comment on above: Performed By: #### O HP, IOCAL ####[address] Fwapuujqoskg1503 [place] [address] FIO2 100 Normal [facility] Comment on above: Performed By: #### O HP, IOCAL ####[facility] Gunxutzfyjht9769 [place] [address] Glucose mass conc 90 mg/dL Normal 75-110 [facility] Comment on above: Performed By: #### O HP, IOCAL ####[address] Bejmzvpmhkvy0467 [place] [address] HCO3 molar conc (Bld) 15.6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 Work Phone: [facility] 06-10-2024 14:47-0500 Body mass index (BMI) [Ratio] 20.09 kg/m2 Hebert Miguel MD Work Phone: [facility] 06-10-2024 14:47-0500 Body weight 63.5 kg Hebert Miguel MD Work Phone: [facility] 06-01-2024 13:32-0500 Body height 177.8 cm Gildardo Lacy MD Work Phone: [facility] 06-01-2024 13:32-0500 Body mass index (BMI) [Ratio] 18.37 kg/m2 Gildardo Lacy MD Work Phone: [facility] 06-01-2024 13:32-0500 Body temperature 97.81 [degF] Gildardo Lacy MD Work Phone: [facility] 06-01-2024 13:32-0500 Body weight 58.06 kg Gildardo Lacy MD Work Phone: [facility] 06-01-2024 13:32-0500 Diastolic blood pressure 52 mm[Hg] Gildardo Lacy MD Work Phone: [facility] 06-01-2024 13:32-0500 Heart rate 107 /min Gildardo Lacy MD Work Phone: [facility] 06-01-2024 13:32-0500 Respiratory rate 24 /min Gildardo Lacy MD Work Phone: [facility] 06-01-2024 13:32-0500 SaO2% (BldA) [Mass fraction] 90 % Gildardo Lacy MD Work Phone: [facility] 06-01-2024 13:32-0500 Systolic blood pressure 114 mm[Hg] Gildardo Lacy MD Work Phone: [facility] 04-12-2024 13:24-0500 Body height 177.8 cm Gildardo Lacy MD Work Phone: [facility] 04-12-2024 13:24-0500 Body mass index (BMI) [Ratio] 19.8 kg/m2 Gildardo Lacy MD Work Phone: [facility] 04-12-2024 13:24-0500 Body temperature 98.4 [degF] Gildardo Lacy MD Work Phone: [facility] 04-12-2024 13:24-0500 Body weight 62.6 kg Gildardo Lacy MD Work Phone: [facility] 04-12-2024 13:24-0500 Diastolic blood pressure 66 mm[Hg] Gildardo Lacy MD Work Phone: [facility] 04-12-2024 13:24-0500 Heart rate 111 /min Gildardo Lacy MD Work Phone: [facility] 04-12-2024 13:24-0500 Respiratory rate 20 /min Gildardo Lacy MD Work Phone: [facility] 04-12-2024 13:24-0500 SaO2% (BldA) [Mass fraction] 92 % Gildardo Lacy MD Work Phone: [facility] 04-12-2024 13:24-0500 Systolic blood pressure 140 mm[Hg] Gildardo Lacy MD Work Phone: [facility] 02-29-2024 09:56-0400 Body height 177.8 cm Gildardo Lacy MD Work Phone: [facility] 02-29-2024 09:56-0400 Body mass index (BMI) [Ratio] 18.65 kg/m2 Gildardo Lacy MD Work Phone: [facility] 02-29-2024 09:56-0400 Body temperature 97.81 [degF] Gildardo Lacy MD Work Phone: [facility] 02-29-2024 09:56-0400 Body weight 58.97 kg Gildardo Lacy MD Work Phone: [facility] 02-29-2024 09:56-0400 Diastolic blood pressure 66 mm[Hg] Gildardo Lacy MD Work Phone: [facility] 02-29-2024 09:56-0400 Heart rate 92 /min Gildardo Lacy MD Work Phone: [facility] 02-29-2024 09:56-0400 Respiratory rate 18 /min Gildardo Lacy MD Work Phone: [facility] 02-29-2024 09:56-0400 SaO2% (BldA) [Mass fraction] 97 % Gildardo Lacy MD Work Phone: [facility] 02-29-2024 09:56-0400 Systolic blood pressure 150 mm[Hg] Gildardo Lacy MD Work Phone: [facility] 02-02-2024 09:35-0400 Body height 177.8 cm Cassie Hood PA Work Phone: [facility] 02-02-2024 09:35-0400 Body mass index (BMI) [Ratio] 20.09 kg/m2 Cassie Hood PA Work Phone: [facility] 02-02-2024 09:35-0400 Body weight 63.5 kg Cassie Hood PA Work Phone: [facility] 12-22-2023 14:55-0400 Body height 178.7 cm Esdras Cash MD Work Phone: [facility] 12-22-2023 14:55-0400 Body mass index (BMI) [Ratio] 19.32 kg/m2 Esdras Cash MD Work Phone: [facility] 12-22-2023 14:55-0400 Body temperature 98.2 [degF] Esdras Cash MD Work Phone: [facility] 12-22-2023 14:55-0400 Body weight 61.69 kg Esdras Cash MD Work Phone: [facility] 12-22-2023 14:55-0400 Diastolic blood pressure 89 mm[Hg] Esdras Cash MD Work Phone: [facility] 12-22-2023 14:55-0400 Heart rate 104 /min Esdras Cash MD Work Phone: [facility] 12-22-2023 14:55-0400 Respiratory rate 18 /min Esdras Cash MD Work Phone: [facility] 12-22-2023 14:55-0400 SaO2% (BldA) [Mass fraction] 95 % Esdras Cash MD Work Phone: [facility] 12-22-2023 14:55-0400 Systolic blood pressure 126 mm[Hg] Esdras Cash MD Work Phone: [facility] 12-22-2023 14:35-0400 Body mass index (BMI) [Ratio] 19.38 kg/m2 DENIA Carpenter MD Work Phone: [facility] 12-22-2023 14:35-0400 Body temperature 98.2 [degF] DENIA Carpenter MD Work Phone: [facility] 12-22-2023 14:35-0400 Body weight 61.9 kg DENIA Carpenter MD Work Phone: [facility] 12-22-2023 14:35-0400 Diastolic blood pressure 89 mm[Hg] DENIA Carpenter MD Work Phone: [facility] 12-22-2023 14:35-0400 Heart rate 104 /min DENIA Carpenter MD Work Phone: [facility] 12-22-2023 14:35-0400 Respiratory rate 18 /min DENIA Carpenter MD Work Phone: [facility] 12-22-2023 14:35-0400 SaO2% (BldA) [Mass fraction] 95 % NA Ron VO Work Phone: [facility] 12-22-2023 14:35-0400 Systolic blood pressure 126 mm[Hg] NA Ron VO Work Phone: [facility] 11-17-2023 10:29-0400 Body height 177.8 cm Carmen Neely MD Work Phone: [facility] 11-17-2023 10:29-0400 Body mass index (BMI) [Ratio] 18.65 kg/m2 Carmen Neely MD Work Phone: [facility] 11-17-2023 10:29-0400 Body weight 58.97 kg Carmen Neely MD Work Phone: [facility] 11-17-2023 10:29-0400 Diastolic blood pressure 78 mm[Hg] Carmen Neely MD Work Phone: [facility] 11-17-2023 10:29-0400 Heart rate 88 /min Carmen Neely MD Work Phone: [facility] 11-17-2023 10:29-0400 Systolic blood pressure 138 mm[Hg] Carmen Neely MD Work Phone: [facility] 08-18-2023 14:20-0400 Body height 178.7 cm Esdras Cash MD Work Phone: [facility] 08-18-2023 14:20-0400 Body temperature 97.5 [degF] Esdras Cash MD Work Phone: [facility] 08-18-2023 14:20-0400 Body weight 67.7 kg Esdras Cash MD Work Phone: [facility] 08-18-2023 14:20-0400 Diastolic blood pressure 88 mm[Hg] Esdras Cash MD Work Phone: [facility] 08-18-2023 14:20-0400 Heart rate 107 /min Esdras Cash MD Work Phone: [facility] 08-18-2023 14:20-0400 Respiratory rate 18 /min Esdras Cash MD Work Phone: [facility] 08-18-2023 14:20-0400 SaO2% (BldA) [Mass fraction] 94 % Esdras Cash MD Work Phone: [facility] 08-18-2023 14:20-0400 Systolic blood pressure 161 mm[Hg] Esdras Cash MD Work Phone: [facility] 08-18-2023 14:00-0400 Body mass index (BMI) [Ratio] 21.2 kg/m2 NA Ron VO Work Phone: [facility] 08-18-2023 14:00-0400 Body temperature 98.49 [degF] DENIA Carpenter MD Work Phone: [facility] 08-18-2023 14:00-0400 Diastolic blood pressure 83 mm[Hg] NA Ron VO Work Phone: [facility] 08-18-2023 14:00-0400 Heart rate 104 /min DENIA Carpenter MD Work Phone: [facility] 08-18-2023 14:00-0400 SaO2% (BldA) [Mass fraction] 93 % DENIA Carpenter MD Work Phone: [facility] 08-18-2023 14:00-0400 Systolic blood pressure 147 mm[Hg] DENIA Carpenter MD Work Phone: [facility] 05-06-2023 11:18-0500 Body height 177.8 cm Carmen Neely MD Work Phone: [facility] 05-06-2023 11:18-0500 Body mass index (BMI) [Ratio] 21.67 kg/m2 Carmen Neely MD Work Phone: [facility] 05-06-2023 11:18-0500 Body weight 68.49 kg Carmen Neely MD Work Phone: [facility] 05-06-2023 11:18-0500 Diastolic blood pressure 76 mm[Hg] Carmen Neely MD Work Phone: [facility] 05-06-2023 11:18-0500 Heart rate 72 /min Carmen Neely MD Work Phone: [facility] 05-06-2023 11:18-0500 Systolic blood pressure 118 mm[Hg] Carmen Neely MD Work Phone: [facility] 06-10-2022 10:18-0500 Body height 177.8 cm Gildardo A Naderer Work Phone: [facility] [address] DO Work Phone: 06-10-2022 10:18-0500 Body mass index (BMI) [Ratio] 25.83 kg/m2 Gildardo A Naderer Work Phone: [facility] [address] DO Work Phone: 06-10-2022 10:18-0500 Body surface area Derived from formula 2 m2 Gildardo A Naderer Work Phone: [facility] 250 DO Work Phone: 06-10-2022 10:18-0500 Body weight 81.65 kg Gildardo A Naderer Work Phone: [facility] [address] DO Work Phone: 06-10-2022 10:18-0500 Diastolic blood pressure 74 mm[Hg] Gildardo A Naderer Work Phone: [facility] [address] DO Work Phone: 06-10-2022 10:18-0500 Heart rate 75 /min Gildardo A Naderer Work Phone: [facility] [address] DO Work Phone: 06-10-2022 10:18-0500 Systolic blood pressure 126 mm[Hg] Gildardo Lacy Work Phone: [facility] [address] DO Work Phone: 05-20-2022 10:08-0500 Body height 178.7 cm Esdras Cash MD Work Phone: [facility] 05-20-2022 10:08-0500 Body temperature 97.7 [degF] Esdras Cash MD Work Phone: [facility] 05-20-2022 10:08-0500 Body weight 78.65 kg Esdras Cash MD Work Phone: [facility] 05-20-2022 10:08-0500 Diastolic blood pressure 75 mm[Hg] Esdras Cash MD Work Phone: [facility] 05-20-2022 10:08-0500 Heart rate 82 /min Esdras Cash MD Work Phone: [facility] 05-20-2022 10:08-0500 Respiratory rate 16 /min Esdras Cash MD Work Phone: [facility] 05-20-2022 10:08-0500 SaO2% (BldA) [Mass fraction] 96 % Esdras Cash MD Work Phone: [facility] 05-20-2022 10:08-0500 Systolic blood pressure 128 mm[Hg] Esdras Cash MD Work Phone: [facility] 04-17-2022 11:11-0500 Body temperature 97.5 [degF] DENIA Carpenter MD Work Phone: [facility] 04-17-2022 11:11-0500 Body weight 78.93 kg DENIA Carpenter MD Work Phone: [facility] 04-17-2022 11:11-0500 Diastolic blood pressure 60 mm[Hg] DENIA Carpenter MD Work Phone: [facility] 04-17-2022 11:11-0500 Heart rate 74 /min DENIA Carpenter MD Work Phone: [facility] 04-17-2022 11:11-0500 Respiratory rate 18 /min DENIA Carpenter MD Work Phone: [facility] 04-17-2022 11:11-0500 SaO2% (BldA) [Mass fraction] 97 % DENIA Carpenter MD Work Phone: [facility] 04-17-2022 11:11-0500 Systolic blood pressure 100 mm[Hg] DENIA Carpenter MD Work Phone: [facility] 02-25-2022 13:52-0400 Body temperature 97.5 [degF] DENIA Carpenter MD Work Phone: [facility] 02-25-2022 13:52-0400 Body weight 77.11 kg DENIA Carpenter MD Work Phone: [facility] 02-25-2022 13:52-0400 Diastolic blood pressure 68 mm[Hg] DENIA Carpenter MD Work Phone: [facility] 02-25-2022 13:52-0400 Heart rate 92 /min DENIA Carpenter MD Work Phone: [facility] 02-25-2022 13:52-0400 Respiratory rate 16 /min DENIA Carpenter MD Work Phone: [facility] 02-25-2022 13:52-0400 SaO2% (BldA) [Mass fraction] 95 % DENIA Carpenter MD Work Phone: [facility] 02-25-2022 13:52-0400 Systolic blood pressure 125 mm[Hg] DENIA Carpenter MD Work Phone: [facility] 02-18-2022 10:26-0400 Body height 178.7 cm Esdras Cash MD Work Phone: [facility] 02-18-2022 10:26-0400 Body temperature 97.59 [degF] Esdras Cash MD Work Phone: [facility] 02-18-2022 10:26-0400 Body weight 79.83 kg Esdras Cash MD Work Phone: [facility] 02-18-2022 10:26-0400 Diastolic blood pressure 69 mm[Hg] Esdras Cash MD Work Phone: [facility] 02-18-2022 10:26-0400 Heart rate 72 /min Esdras Cash MD Work Phone: [facility] 02-18-2022 10:26-0400 Respiratory rate 18 /min Esdras Cash MD Work Phone: [facility] 02-18-2022 10:26-0400 SaO2% (BldA) [Mass fraction] 96 % Esdras Cash MD Work Phone: [facility] 02-18-2022 10:26-0400 Systolic blood pressure 107 mm[Hg] Esdras Cash MD Work Phone: [facility] 01-13-2022 12:00-0400 54 1 Gildardo Masseyr Work Phone: [facility] [address] [place] Work Phone: Comment on above: [place] [id number] 01-13-2022 10:45-0400 70 1 Gildardo Acunaerer Work Phone: [facility] 600 DO Work Phone: Comment on above: [id number] 12-26-2021 13:12-0400 Body temperature 97.59 [degF] DENIA Carpenter MD Work Phone: [facility] 12-26-2021 13:12-0400 Body weight 76.66 kg DENIA Carpenter MD Work Phone: [facility] 12-26-2021 13:12-0400 Diastolic blood pressure 77 mm[Hg] DENIA Carpenter MD Work Phone: [facility] 12-26-2021 13:12-0400 Heart rate 81 /min DENIA Carpenter MD Work Phone: [facility] 12-26-2021 13:12-0400 Respiratory rate 16 /min DENIA Carpenter MD Work Phone: [facility] 12-26-2021 13:12-0400 SaO2% (BldA) [Mass fraction] 99 % DENIA Carpenter MD Work Phone: [facility] 12-26-2021 13:12-0400 Systolic blood pressure 122 mm[Hg] DENIA Carpenter MD Work Phone: [facility] 11-27-2021 10:50-0400 Diastolic blood pressure 68 mm[Hg] Gildardo Acunaerer Work Phone: [facility] [address] DO Work Phone: 11-27-2021 10:50-0400 Systolic blood pressure 90 mm[Hg] Gildardo Butler Naderer Work Phone: [facility] [address] DO Work Phone: 11-27-2021 10:47-0400 Body height 177.8 cm Gildardo Butler Naderer Work Phone: [facility] [address] DO Work Phone: 11-27-2021 10:47-0400 Body mass index (BMI) [Ratio] 23.53 kg/m2 Gildardo Butler Naderer Work Phone: [facility] [address] DO Work Phone: 11-27-2021 10:47-0400 Body surface area Derived from formula 1.92 m2 Gildardo Butler Naderer Work Phone: [facility] [address] DO Work Phone: 11-27-2021 10:47-0400 Body weight 74.39 kg Gildardo Butler Naderer Work Phone: [facility] [address] DO Work Phone: 11-27-2021 10:47-0400 Diastolic blood pressure 70 mm[Hg] Gildardo Butler Naderer Work Phone: [facility] [address] DO Work Phone: 11-27-2021 10:47-0400 Heart rate 92 /min Gildardo Butler Naderer Work Phone: [facility] [address] DO Work Phone: 11-27-2021 10:47-0400 Systolic blood pressure 102 mm[Hg] Gildardo Butler Naderer Work Phone: [facility] [address] DO Work Phone: 11-27-2021 10:47-0400 8 1 Gildardo Butler Naderer Work Phone: [facility] 250 DO Work Phone: Comment on above: [id number] 11-21-2021 10:53-0400 Body temperature 97.9 [degF] EDNIA Carpenter MD Work Phone: [facility] 11-21-2021 10:53-0400 Body weight 74.93 kg DENIA Carpenter MD Work Phone: [facility] 11-21-2021 10:53-0400 Diastolic blood pressure 72 mm[Hg] DNEIA Carpenter MD Work Phone: [facility] 11-21-2021 10:53-0400 Heart rate 117 /min DENIA Carpenter MD Work Phone: [facility] 11-21-2021 10:53-0400 Respiratory rate 18 /min DENIA Carpenter MD Work Phone: [facility] 11-21-2021 10:53-0400 SaO2% (BldA) [Mass fraction] 97 % DENIA Carpenter MD Work Phone: [facility] 11-21-2021 10:53-0400 Systolic blood pressure 119 mm[Hg] DENIA Carpenter MD Work Phone: [facility] 10-03-2021 13:55-0400 Body height 178.7 cm Esdras Cash MD Work Phone: [facility] 10-03-2021 13:55-0400 Body temperature 98.01 [degF] Esdras Cash MD Work Phone: [facility] 10-03-2021 13:55-0400 Body weight 75.39 kg Esdras Cash MD Work Phone: [facility] 10-03-2021 13:55-0400 Diastolic blood pressure 64 mm[Hg] Esdras Cash MD Work Phone: [facility] 10-03-2021 13:55-0400 Heart rate 97 /min Esdras Cash MD Work Phone: [facility] 10-03-2021 13:55-0400 Respiratory rate 16 /min Esdras Cash MD Work Phone: [facility] 10-03-2021 13:55-0400 SaO2% (BldA) [Mass fraction] 98 % Esdras Cash MD Work Phone: [facility] 10-03-2021 13:55-0400 Systolic blood pressure 116 mm[Hg] Esdras Cash MD Work Phone: [facility] 09-23-2021 12:09-0400 Body height 178.7 cm Esdras Cash MD Work Phone: [facility] 09-23-2021 12:09-0400 Body temperature 97.59 [degF] Esdras Cash MD Work Phone: [facility] 09-23-2021 12:09-0400 Body weight 75.12 kg Esdras Cash MD Work Phone: [facility] 09-23-2021 12:09-0400 Diastolic blood pressure 64 mm[Hg] Esdras Cash MD Work Phone: [facility] 09-23-2021 12:09-0400 Heart rate 81 /min Esdras Cash MD Work Phone: [facility] 09-23-2021 12:09-0400 Respiratory rate 16 /min Esdras Cash MD Work Phone: [facility] 09-23-2021 12:09-0400 SaO2% (BldA) [Mass fraction] 97 % Esdras Cash MD Work Phone: [facility] 09-23-2021 12:09-0400 Systolic blood pressure 118 mm[Hg] Esdras Cash MD Work Phone: [facility] 09-16-2021 11:57-0400 Body height 178.7 cm Nathony Mejia PA-C Work Phone: [facility] 09-16-2021 11:57-0400 Body temperature 96.69 [degF] Anthony Mejia PA-C Work Phone: [facility] 09-16-2021 11:57-0400 Body weight 77.11 kg Anthony Mejia PA-C Work Phone: [facility] 09-16-2021 11:57-0400 Diastolic blood pressure 76 mm[Hg] Anthony Mejia PA-C Work Phone: [facility] 09-16-2021 11:57-0400 Heart rate 110 /min Anthony Mejia PA-C Work Phone: [facility] 09-16-2021 11:57-0400 Respiratory rate 18 /min Anthony Mejia PA-C Work Phone: [facility] 09-16-2021 11:57-0400 SaO2% (BldA) [Mass fraction] 99 % Anthony Mejia PA-C Work Phone: [facility] 09-16-2021 11:57-0400 Systolic blood pressure 112 mm[Hg] Anthony Mejia PA-C Work Phone: [facility] 09-16-2021 11:23-0400 Body temperature 96.69 [degF] Mike Brown MD Work Phone: [facility] 09-16-2021 11:23-0400 Body weight 77.11 kg Mike Brown MD Work Phone: [facility] 09-16-2021 11:23-0400 Diastolic blood pressure 76 mm[Hg] Mike Brown MD Work Phone: [facility] 09-16-2021 11:23-0400 Heart rate 110 /min Mike Brown MD Work Phone: [facility] 09-16-2021 11:23-0400 Respiratory rate 18 /min Mike Brown MD Work Phone: [facility] 09-16-2021 11:23-0400 SaO2% (BldA) [Mass fraction] 99 % Mike Brown MD Work Phone: [facility] 09-16-2021 11:23-0400 Systolic blood pressure 112 mm[Hg] Mike Brown MD Work Phone: [facility] 09-09-2021 11:46-0400 Body height 178.7 cm Esdras Cash MD Work Phone: [facility] 09-09-2021 11:46-0400 Body temperature 97.59 [degF] Esdras Cash MD Work Phone: [facility] 09-09-2021 11:46-0400 Body weight 77.66 kg Esdras Cash MD Work Phone: [facility] 09-09-2021 11:46-0400 Diastolic blood pressure 73 mm[Hg] Esdras Cash MD Work Phone: [facility] 09-09-2021 11:46-0400 Heart rate 81 /min Esdras Cash MD Work Phone: [facility] 09-09-2021 11:46-0400 Respiratory rate 16 /min Esdras Cash MD Work Phone: [facility] 09-09-2021 11:46-0400 SaO2% (BldA) [Mass fraction] 97 % Esdras Cash MD Work Phone: [facility] 09-09-2021 11:46-0400 Systolic blood pressure 123 mm[Hg] Esdras Cash MD Work Phone: [facility] 09-09-2021 11:25-0400 Body temperature 97.59 [degF] DENIA Carpenter MD Work Phone: [facility] 09-09-2021 11:25-0400 Body weight 77.38 kg DENIA Carpenter MD Work Phone: [facility] 09-09-2021 11:25-0400 Diastolic blood pressure 71 mm[Hg] DENIA Carpenter MD Work Phone: [facility] 09-09-2021 11:25-0400 Heart rate 78 /min DENIA Carpenter MD Work Phone: [facility] 09-09-2021 11:25-0400 Respiratory rate 16 /min DENIA Carpenter MD Work Phone: [facility] 09-09-2021 11:25-0400 SaO2% (BldA) [Mass fraction] 99 % DENIA Carpenter MD Work Phone: [facility] 09-09-2021 11:25-0400 Systolic blood pressure 134 mm[Hg] DENIA Carpenter MD Work Phone: [facility] 09-02-2021 09:14-0400 Body height 178.7 cm Anthony Mejia PA-C Work Phone: [facility] 09-02-2021 09:14-0400 Body temperature 98.01 [degF] Anthony Mejia PA-C Work Phone: [facility] 09-02-2021 09:14-0400 Body weight 76.66 kg Anthony Mejia PA-C Work Phone: [facility] 09-02-2021 09:14-0400 Diastolic blood pressure 69 mm[Hg] Anthony Mejia PA-C Work Phone: [facility] 09-02-2021 09:14-0400 Heart rate 101 /min Anthony Mejia PA-C Work Phone: [facility] 09-02-2021 09:14-0400 Respiratory rate 16 /min Anthony Escotoer PA-C Work Phone: [facility] 09-02-2021 09:14-0400 SaO2% (BldA) [Mass fraction] 98 % Anthony Escotoer PA-C Work Phone: [facility] 09-02-2021 09:14-0400 Systolic blood pressure 121 mm[Hg] Anthony Escotoer PA-C Work Phone: [facility] 08-26-2021 09:00-0400 Body height 178.7 cm Chair [place] Work Phone: [facility] 08-26-2021 09:00-0400 Body temperature 97.3 [degF] Chair [place] Work Phone: [facility] 08-26-2021 09:00-0400 Body weight 77.4 kg Chair [place] Work Phone: [facility] 08-26-2021 09:00-0400 Diastolic blood pressure 61 mm[Hg] Chair [place] Work Phone: [facility] 08-26-2021 09:00-0400 Heart rate 85 /min Chair [place] Work Phone: [facility] 08-26-2021 09:00-0400 Respiratory rate 16 /min Chair [place] Work Phone: [facility] 08-26-2021 09:00-0400 SaO2% (BldA) [Mass fraction] 98 % Chair [place] Work Phone: [facility] 08-26-2021 09:00-0400 Systolic blood pressure 132 mm[Hg] Chair [place] Work Phone: [facility] 08-19-2021 13:25-0400 Body height 178.7 cm Nathaly Biggs APRN.CNP Work Phone: [facility] 08-19-2021 13:25-0400 Body temperature 97.59 [degF] Nathaly Biggs PREPRESS MANAGER.ACCOUNT COORDINATOR Work Phone: [facility] 08-19-2021 13:25-0400 Body weight 77.38 kg Nathaly Biggs PREPRESS MANAGER.ACCOUNT COORDINATOR Work Phone: [facility] 08-19-2021 13:25-0400 Diastolic blood pressure 89 mm[Hg] Nathaly Biggs PREPRESS MANAGER.ACCOUNT COORDINATOR Work Phone: [facility] 08-19-2021 13:25-0400 Heart rate 80 /min Nathaly Biggs PREPRESS MANAGER.ACCOUNT COORDINATOR Work Phone: [facility] 08-19-2021 13:25-0400 Respiratory rate 16 /min Nathaly Biggs PREPRESS MANAGER.ACCOUNT COORDINATOR Work Phone: [facility] 08-19-2021 13:25-0400 SaO2% (BldA) [Mass fraction] 96 % Nathaly Biggs PREPRESS MANAGER.ACCOUNT COORDINATOR Work Phone: [facility] 08-19-2021 13:25-0400 Systolic blood pressure 120 mm[Hg] Nathaly Biggs PREPRESS MANAGER.ACCOUNT COORDINATOR Work Phone: [facility] 08-19-2021 12:25-0400 Body temperature 97.7 [degF] DENIA Carpenter MD Work Phone: [facility] 08-19-2021 12:25-0400 Body weight 78.93 kg DENIA Carpenter MD Work Phone: [facility] 08-19-2021 12:25-0400 Diastolic blood pressure 65 mm[Hg] DENIA Carpenter MD Work Phone: [facility] 08-19-2021 12:25-0400 Heart rate 77 /min DENIA Carpenter MD Work Phone: [facility] 08-19-2021 12:25-0400 Respiratory rate 16 /min DENIA Carpenter MD Work Phone: [facility] 08-19-2021 12:25-0400 SaO2% (BldA) [Mass fraction] 98 % DENIA Carpenter MD Work Phone: [facility] 08-19-2021 12:25-0400 Systolic blood pressure 120 mm[Hg] DENIA Carpenter MD Work Phone: [facility] 08-12-2021 12:28-0400 Body height 178.7 cm [place] Work Phone: [facility] 08-12-2021 11:47-0400 Body height 177 cm Esdras Cash MD Work Phone: [facility] 08-12-2021 11:47-0400 Body temperature 97.81 [degF] Esdras Cash MD Work Phone: [facility] 08-12-2021 11:47-0400 Body weight 75.66 kg Esdras Cash MD Work Phone: [facility] 08-12-2021 11:47-0400 Diastolic blood pressure 65 mm[Hg] Esdras Cash MD Work Phone: [facility] 08-12-2021 11:47-0400 Heart rate 72 /min Esdras Cash MD Work Phone: [facility] 08-12-2021 11:47-0400 Respiratory rate 16 /min Esdras Cash MD Work Phone: [facility] 08-12-2021 11:47-0400 SaO2% (BldA) [Mass fraction] 98 % Esdras Cash MD Work Phone: [facility] 08-12-2021 11:47-0400 Systolic blood pressure 113 mm[Hg] Esdras Cash MD Work Phone: [facility] 08-12-2021 10:32-0400 Body temperature 97.7 [degF] DENIA Carpenter MD Work Phone: [facility] 08-12-2021 10:32-0400 Body weight 77.11 kg DENIA Carpenter MD Work Phone: [facility] 08-12-2021 10:32-0400 Diastolic blood pressure 64 mm[Hg] DENIA Carpenter MD Work Phone: [facility] 08-12-2021 10:32-0400 Heart rate 79 /min DENIA Carpenter MD Work Phone: [facility] 08-12-2021 10:32-0400 Respiratory rate 16 /min DENIA Carpetner MD Work Phone: [facility] 08-12-2021 10:32-0400 SaO2% (BldA) [Mass fraction] 99 % DENIA Carpenter MD Work Phone: [facility] 08-12-2021 10:32-0400 Systolic blood pressure 119 mm[Hg] DENIA Carpenter MD Work Phone: [facility] 08-01-2021 16:11-0400 Body height 177 cm Esdras Cash MD Work Phone: [facility] 08-01-2021 16:11-0400 Body temperature 97 [degF] Esdras Cash MD Work Phone: [facility] 08-01-2021 16:11-0400 Body weight 77.84 kg Esdras Cash MD Work Phone: [facility] 08-01-2021 16:11-0400 Diastolic blood pressure 64 mm[Hg] Esdras Cash MD Work Phone: [facility] 08-01-2021 16:11-0400 Heart rate 68 /min Esdras Cash MD Work Phone: [facility] 08-01-2021 16:11-0400 Respiratory rate 16 /min Esdras Cash MD Work Phone: [facility] 08-01-2021 16:11-0400 SaO2% (BldA) [Mass fraction] 99 % Esdras Cash MD Work Phone: [facility] 08-01-2021 16:11-0400 Systolic blood pressure 126 mm[Hg] Esdras Cash MD Work Phone: [facility] 07-30-2021 11:02-0400 Body temperature 98.29 [degF] DENIA Carpenter MD Work Phone: [facility] 07-30-2021 11:02-0400 Body weight 77.11 kg DENIA Carpenter MD Work Phone: [facility] 07-30-2021 11:02-0400 Diastolic blood pressure 59 mm[Hg] DENIA Carpenter MD Work Phone: [facility] 07-30-2021 11:02-0400 Heart rate 69 /min DENIA Carpenter MD Work Phone: [facility] 07-30-2021 11:02-0400 Respiratory rate 16 /min DENIA Carpenter MD Work Phone: [facility] 07-30-2021 11:02-0400 SaO2% (BldA) [Mass fraction] 99 % DENIA Carpenter MD Work Phone: [facility] 07-30-2021 11:02-0400 Systolic blood pressure 108 mm[Hg] DENIA Carpenter MD Work Phone: [facility] 01-22-2018 18:46-0400 Respiratory rate NOT REPORTED [facility] Comment on above: Performed By: #### OHP, IOCAL ####[facility] [id number] [place] [id number] 01-19-2018 23:55-0400 Respiratory rate NOT REPORTED [facility] Comment on above: Performed By: #### ERTPF, CONNER, LIP, LIVP , TEGCR ####[employer] [id number] [place] [address] 01-19-2018 22:58-0400 Respiratory rate NOT REPORTED [facility] Comment on above: Performed By: #### OHP, IOCAL ####[facility] [id number] [place], [place] [id number] 01-19-2018 22:10-0400 Respiratory rate NOT REPORTED [facility] Comment on above: Performed By: #### OHP, IOCAL ####[facility] [id number] [place] [address] 01-19-2018 21:07-0400 Respiratory rate NOT REPORTED [facility] Comment on above: Performed By: #### ERTPF, CONNER, LIP, LIVP , TEGCR ####[employer] [id number] [place] [address] Encounters Encounter Date Encounter Type Care Provider Facility Start: 01-10-2025 End[facility] Work [facility] Start: 01-10-2025 End[facility] Start: 01-10-2025 End: 01-10-2025 Office outpatient new 45 minutes Jl Shepherd DPM Work Phone: [facility] Comment on above: Metatarsalgia of lef t foot (Primary Dx); Closed displaced fracture of second metatarsal bone of left foot, sequela; Left foot pain; Equinus contracture of left ankle; Other synovitis and tenosynovitis, left ankle and foot Start: 01-10-2025 End: 01-10-2025 ambulatory JL SHEPHERD Not Available Start: 12-30-2024 End: 01-03-2025 Telephone encounter Gildardo Lacy MD Work Phone: [facility] Start: 12-21-2024 End: 12-21-2024 Office outpatient new 45 minutes Kaela Negrete DO Work Phone: [facility] Comment on above: Cigarette smoker (Pr imary Dx); Chronic obstructive pulmonary disease, unspecified COPD type (HCC); Chronic hypoxic respiratory failure (HCC) Start: 12-21-2024 End: 12-21-2024 ambulatory KAELA NEGRETE Not Available Start: 12-21-2024 End: 12-21-2024 Bamboo flowsheet Kaela Negrete DO Work Phone: [facility] Start: 12-21-2024 End: 12-21-2024 Bamboo flowsheet Kaela White Caden DO Work Phone: [facility] Start: 12-21-2024 End: 12-21-2024 Telephone encounter Gildardo Lacy MD Work Phone: [facility] Start: 12-20-2024 End: 12-21-2024 Clinisync Result Encounter Generic External Data Provider [facility] External Department Unsolicited Start: 12-20-2024 End: 12-21-2024 Clinisync Result Encounter Generic External Data Provider [facility] External Department Unsolicited Start: 12-20-2024 End: 12-20-2024 Office outpatient visit 15 minutes Kathrine Carpenter MD Work Phone: [facility] Comment on above: Hypothyroidism due t o acquired atrophy of thyroid (Primary Dx) Start: 12-20-2024 End: 12-20-2024 ambulatory Kathrine CARPENTER Facility:[facility] Start: 12-13-2024 End: 12-14-2024 Refill Gildardo Lacy MD Work Phone: [facility] Comment on above: Chronic obstructive pulmonary disease, unspecified COPD type (HCC); DDD (degenerative disc disease), thoracic Start: 12-08-2024 End: 12-08-2024 [facility] Start: 11-18-2024 End: 11-18-2024 Encounter for other preprocedural examination [facility] Start: 11-18-2024 End: 11-18-2024 Evaluation and management of inpatient [facility] Start: 11-17-2024 End: 11-17-2024 ambulatory GILDARDO JONES [facility] Start: 11-16-2024 End: 11-17-2024 Josh Lacy MD Work Phone: [facility] Comment on above: DDD (degenerative di sc disease), thoracic Start: 11-15-2024 End: 11-15-2024 ambulatory [facility] Start: 11-07-2024 End: 11-07-2024 ambulatory GILDARDO LACY Not Available Start: 11-02-2024 Encounter for other preprocedural examination [facility] Start: 10-31-2024 End: 10-31-2024 ambulatory [facility] Start: 10-26-2024 End: 10-26-2024 ambulatory [facility] Start: 10-17-2024 End: 10-18-2024 Josh Lacy MD Work Phone: [facility] Comment on above: Chronic obstructive pulmonary disease, unspecified COPD type (HCC) (Primary Dx); Chronic hypoxic respiratory failure (HCC); DDD (degenerative disc disease), thoracic Start: 10-11-2024 End: 10-11-2024 Bamboo flowsheet Gildardo Lacy MD Work Phone: [facility] Start: 10-11-2024 End: 10-11-2024 Swankheet Gildardo Lacy MD Work Phone: [facility] Start: 10-11-2024 End: 10-11-2024 Office outpatient visit 25 minutes Gildardo Lacy MD Work Phone: [facility] Comment on above: Essential hypertensi on (CMS/HCC) (Primary Dx); Chronic obstructive pulmonary disease, unspecified COPD type (CMS/HCC); Chronic hypoxic respiratory failure (CMS/HCC); Thoracic spondylosis; MDD (major depressive disorder), recurrent episode, mild (HCC) (CMS/HCC); Primary insomnia; Tongue cancer (CMS/HCC); Occlusion of left internal carotid artery Start: 10-11-2024 End: 10-11-2024 ambulatory GILDARDO LACY Not Available Start: 09-19-2024 End: 09-20-2024 Refill Gildardo Lacy MD Work Phone: [facility] Comment on above: DDD (degenerative di sc disease), thoracic Start: 09-12-2024 End: 09-12-2024 Office outpatient visit 25 minutes Carmen Neely MD Work Phone: [facility] Comment on above: Chronic obstructive pulmonary disease, unspecified COPD type (Multi) (Primary Dx); PVD (peripheral vascular disease) ([facility]); Current smoker; Dyspnea, unspecified type; Hyperlipidemia, unspecified hyperlipidemia type; TIA (transient ischemic attack) Start: 09-12-2024 End: 09-12-2024 ambulatory [facility] Ambulatory Start: 09-08-2024 End: 09-08-2024 Bamboo flowsheet Gildardo Lacy MD Work Phone: [facility] Start: 09-08-2024 End: 09-08-2024 Bamboo flowsheet Gildardo Lacy MD Work Phone: [facility] Start: 09-08-2024 End: 09-08-2024 Transitional care manage srvc 7 day discharge Gildardo Lacy MD Work Phone: [facility] Comment on above: Pneumonia due to inf ectious organism, unspecified laterality, unspecified part of lung (Primary Dx); Chronic obstructive pulmonary disease with acute exacerbation (CMS/HCC); Acute hypoxic respiratory failure (CMS/HCC); Chronic obstructive pulmonary disease, unspecified COPD type (CMS/HCC); Tongue cancer (CMS/HCC); Dyslipidemia (CMS/HCC) Start: 09-08-2024 End: 09-08-2024 ambulatory GILDARDO LACY Not Available Start: 09-06-2024 End: 09-06-2024 Refill Gildardo Lacy MD Work Phone: [facility] Comment on above: Primary insomnia Refill Request Start: 09-05-2024 End: 09-05-2024 Office outpatient visit 25 minutes Mireya Moon MD Work Phone: [facility] Department of [facility] Comment on above: Sequelae, post-strok e (Primary Dx); PAD (peripheral artery disease); Hypertension, unspecified type; Hyperlipidemia, unspecified hyperlipidemia type; Left ventricular hypertrophy; ICAO (internal carotid artery occlusion), left; Chronic obstructive pulmonary disease, unspecified COPD type ([facility]); History of throat cancer; Tobacco dependence; Alcoholism ([facility]) Start: 09-05-2024 End: 09-05-2024 ambulatory EHAD LAURO [facility] Start: 08-30-2024 End: 09-01-2024 Clinisync Result Encounter Generic External Data Provider [facility] External Department Unsolicited Start: 08-30-2024 End: 09-01-2024 Clinisync Result Encounter Generic External Data Provider [facility] External Department Unsolicited Start: 08-24-2024 End: 08-24-2024 Refill Gildarod Lacy MD Work Phone: [facility] Comment on above: DDD (degenerative di sc disease), thoracic Start: 08-03-2024 End: 08-03-2024 Bamboo flowsheet Rashida Zarate INTERIOR SPECIALIST Work Phone: [facility] Start: 08-03-2024 End: 08-03-2024 Bamboo flowsheet Rashida Zarate INTERIOR SPECIALIST Work Phone: [facility] Start: 08-03-2024 End: 08-03-2024 Office outpatient visit 25 minutes Rashida Zarate NP Work Phone: [facility] Comment on above: Cerebrovascular acci dent (CVA), unspecified mechanism ([facility]) (Primary Dx); Occlusion of left internal carotid artery; Dyslipidemia ([facility]); Essential hypertension ([facility]) Start: 08-03-2024 End: 08-03-2024 ambulatory RASHIDA ZARATE Not Available Start: 07-27-2024 ambulatory GILDARDO LACY [facility] Start: 07-26-2024 End: 07-26-2024 Telephone encounter Deisy Justin [facility] Neurology, A Department of [facility] Comment on above: STROKE appt Start: 07-25-2024 End: 07-26-2024 Emergency department patient visit [facility] Ambulatory [facility] Start: 07-25-2024 End: 07-25-2024 Refill Gildardo Lacy MD Work Phone: [facility] Comment on above: DDD (degenerative di sc disease), thoracic Start: 07-23-2024 End: 07-25-2024 Emergency department patient visit [facility] Ambulatory [facility] Start: 06-24-2024 End: 06-24-2024 Refill Gildardo Lacy MD Work Phone: [facility] Comment on above: DDD (degenerative di sc disease), thoracic Start: 06-21-2024 End: 06-21-2024 Office outpatient visit 15 minutes G Сергей Carpenter MD Work Phone: Radiation Oncology Comment on above: Head and neck cancer (HCC) (Primary Dx) Start: 06-21-2024 End: 06-21-2024 ambulatory Kathrine CARPENTER Facility:[facility] Start: 06-10-2024 End: 06-10-2024 Clinisync Result [...] extremity; Smoking Start: 06-10-2024 End: 06-10-2024 ambulatory HEBERT MIGUEL Facility:[facility] Start: 06-10-2024 End: 06-10-2024 Subsequent hospital visit by physician Xr [facility] Radiology Comment on above: Pain [R52] Start: 06-07-2024 End: 06-07-2024 Orders Only Hebert Miguel MD Work Phone: Orthopaedics Comment on above: Pain (Primary Dx) Start: 06-01-2024 End: 06-01-2024 Office outpatient visit 15 minutes Gildardo Lacy MD Work Phone: [facility] Comment on above: 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); Unsteady gait; Tongue cancer (CMS/HCC); Chronic obstructive pulmonary disease, unspecified COPD type (CMS/HCC) Start: 06-01-2024 End: 06-01-2024 ambulatory GILDARDO LACY Not Available Start: 05-26-2024 End: 05-26-2024 Refill Gildardo Lacy MD Work Phone: [facility] Comment on above: DDD (degenerative di sc disease), thoracic Start: 05-25-2024 End: 05-26-2024 Refill Gildardo Lacy MD Work Phone: [facility] Comment on above: DDD (degenerative di sc disease), thoracic Start: 05-24-2024 End: 05-24-2024 Bamboo flowsheet Cassie PHAN Work Phone: [facility] Start: 05-24-2024 End: 05-24-2024 Bamboo flowsheet Cassie PHAN Work Phone: [facility] Start: 05-24-2024 End: 05-24-2024 Postop follow up visit related to original px Cassie PHAN Work Phone: [facility] Comment on above: S/P arthroscopy of r ight shoulder (Primary Dx); Internal derangement of shoulder, right; Arthralgia, unspecified joint Start: 05-24-2024 End: 05-24-2024 ambulatory CASSIE HOOD Not Available Start: 05-12-2024 End: 05-16-2024 Telephone encounter Cassie PHAN Work Phone: [facility] Comment on above: Order Start: 05-06-2024 End: 05-06-2024 Bamboo flowsheet Cassie PHAN Work Phone: [facility] Start: 05-06-2024 End: 05-06-2024 Bamboo flowsheet Cassie Simone Tatum PA Work Phone: [facility] Start: 05-06-2024 End: 05-06-2024 Postop follow up visit related to original px Cassie J Tatum PA Work Phone: [facility] Comment on above: S/P arthroscopy of r ight shoulder (Primary Dx); Internal derangement of shoulder, right Start: 05-06-2024 End: 05-06-2024 ambulatory CASSIE J TATUM Not Available Start: 04-21-2024 End: 04-21-2024 Refill Gildardo Lacy MD Work Phone: [facility] Comment on above: DDD (degenerative di sc disease), thoracic Start: 04-12-2024 End: 04-12-2024 Bamboo flowsheet Gildardo Lacy MD Work Phone: [facility] Start: 04-12-2024 End: 04-12-2024 Bamboo flowsheet Gildardo Lacy MD Work Phone: [facility] Start: 04-12-2024 End: 04-12-2024 Patient encounter procedure Gildardo Lacy MD Work Phone: [facility] Healthcare Work Phone: Start: 04-12-2024 End: 04-12-2024 Postop follow up visit related to original px Gildardo Lacy MD Work Phone: [facility] Comment on above: Medicare annual well ness visit, subsequent (Primary Dx); Left foot pain Start: 04-12-2024 End: 04-12-2024 ambulatory GILDARDO LACY Not Available Start: 04-04-2024 End: 04-04-2024 Refill Sadaf Bowden [facility] Work Phone: [facility] Comment on above: Refill Request Start: 03-29-2024 End: 03-30-2024 Refill Gildardo Lacy MD Work Phone: [facility] Comment on above: Thoracic spondylosis ; DDD (degenerative disc disease), thoracic Start: 03-23-2024 End: 03-23-2024 Bamboo flowsheet Cassie Hood PA Work Phone: [facility] Start: 03-23-2024 End: 03-23-2024 Bamboo flowsheet Cassie Hood PA Work Phone: [facility] Start: 03-23-2024 End: 03-23-2024 Postop follow up visit related to original px Cassie Hood PA Work Phone: [facility] Comment on above: S/P arthroscopy of r ight shoulder (Primary Dx) Start: 03-23-2024 End: 03-23-2024 ambulatory CASSIE HOOD Not Available Start: 03-01-2024 End: 03-01-2024 Refill Gildardo Lacy MD Work Phone: [facility] Comment on above: DDD (degenerative [...] Bamboo flowsheet Cassie Hood PA Work Phone: [facility] Start: 02-23-2024 End: 02-23-2024 Bamboo flowsheet Cassie Hood PA Work Phone: [facility] Start: 02-23-2024 End: 02-23-2024 Postop follow up visit related to original px Cassie PHAN Work Phone: [facility] Comment on above: S/P arthroscopy of r ight shoulder (Primary Dx) Start: 02-23-2024 End: 02-23-2024 ambulatory CASSIE HOOD Not Available Start: 02-22-2024 End: 02-22-2024 Refill Gildardo Lacy MD Work Phone: [facility] Comment on above: Primary insomnia Start: 02-08-2024 End: 02-09-2024 Telephone encounter Jesse George NP Work Phone: [facility] Start: 02-02-2024 End: 02-02-2024 Bamboo flowsheet Cassie PHAN Work Phone: [facility] Start: 02-02-2024 End: 02-02-2024 Bamboo flowsheet Cassie PHAN Work Phone: [facility] Start: 02-02-2024 End: 02-02-2024 ambulatory CASSIE HOOD Not Available Start: 02-02-2024 End: 02-02-2024 Patient encounter procedure Cassie PHAN Work Phone: [facility] Comment on above: Preop examination (P rimary Dx) Start: 02-02-2024 End: 02-02-2024 Preprocedural examination done Cassie PHAN Work Phone: [facility] Start: 01-11-2024 End: 01-15-2024 Telephone encounter Jr. Martin Chen DO Work Phone: [facility] Start: 01-05-2024 End: 01-05-2024 Refill Gildardo Lacy MD Work Phone: [facility] Comment on above: DDD (degenerative di sc disease), thoracic Start: 12-31-2023 End: 12-31-2023 Refill Marilu Boudreaux [facility] Comment on above: DDD (degenerative di sc disease), thoracic Start: 12-28-2023 End: 12-28-2023 Bamboo flowsheet Jr. Martin Chen DO Work Phone: [facility] Start: 12-28-2023 End: 12-28-2023 Bamboo flowsheet Jr. Martin Padgett Stepedgard DO Work Phone: [facility] Start: 12-28-2023 End: 12-28-2023 Office outpatient visit 25 minutes Jr. 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 Comment on above: PVD (peripheral vasc ular disease) ([facility]); Hyperlipidemia, unspecified hyperlipidemia type; TIA (transient ischemic attack); BMI less than 19,adult; Current smoker Start: 11-17-2023 End: 11-17-2023 ambulatory CARMEN May [facility] Ambulatory Start: 11-02-2023 End: 11-02-2023 Emergency department patient visit [facility] Start: 09-08-2023 End: 09-08-2023 Patient encounter procedure MD Gildardo Lacy Work Phone: [facility] [place] Work Phone: Start: 09-08-2023 End: 09-08-2023 ambulatory MD Gildardo Lacy Work Phone: [facility] Work Phone: Start: 08-18-2023 End: 08-18-2023 Nutrition therapy Esdras Cash MD Work Phone: Hematology/Oncology Comment on above: 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 Comment on above: PVD (peripheral vasc ular disease) (CMS/HCC) (Primary Dx); Abnormal EKG; TIA (transient ischemic attack); Current smoker; Hyperlipidemia, unspecified hyperlipidemia type; Pulmonary emphysema, unspecified emphysema type (CMS/HCC) Start: 03-25-2023 Refill Esdras Cash MD Work Phone: Hematology/Oncology Comment on above: Refill Request Start: 02-13-2023 Telephone encounter Judith Shin Hematology/Oncology Start: 02-11-2023 Refill Nathaly Biggs APRN.CNP Work Phone: Hematology/Oncology Comment on above: Refill [...] sit 25 minutes Gildardo Lacy Work Phone: [facility] 250 DO Work Phone: Start: 06-10-2022 [...] encounter procedure Esdras Cash MD Work Phone: [place] Start: 02-06-2022 End: 03-21-[address] GILDARDO LACY Facility:[facility] Start: 02-04-2022 End: 02-05-[address] BELLA PEREIRA Facility:[facility] Start: 01-18-2022 Chart Update Gildardo Lacy Work Phone: [facility] 600 DO Work Phone: Start: 01-13-2022 Patient encounter procedure Gildardo Lacy Work Phone: [facility] 250A [place] Work Phone: Start: 01-13-[address] Carmen Neely Facility:[id number] Start: 12-26-2021 End: 12-26-2021 Patient encounter [...] w 45 minutes Gildardo Lacy Work Phone: [facility] 250 DO Work Phone: Start: 11-27-[address] 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) Start: 08-15-2021 Telephone encounter Cynthia olivera RN Work Phone: Hematology/Oncology Comment on above: Care Coordination (C 1D1 Post Treatment Call) Start: 08-12-2021 Telephone encounter Cynthia olievra RN Work Phone: Hematology/Oncology Comment on above: Care Coordination (E ducation Material) Start: 08-12-2021 End: 08-12-2021 ambulatory Chair Virgilio Wilson Work Phone: Hematology/Oncology Comment on above: 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) Start: 08-12-2021 End: 08-12-2021 Patient encounter procedure Esdras Cash MD Work Phone: [place] Start: 08-12-2021 End: 08-12-2021 Patient encounter procedure Kathrine Carpenter MD Work Phone: Radiation Oncology Comment on above: 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) Start: 08-09-2021 End: 08-09-2021 ambulatory Vale Chung PT, DPT Work Phone: [facility] Comment on above: Physical decondition ing (Primary Dx); Current smoker Start: 08-05-2021 ambulatory Cynthia villarreal RN Work Phone: Hematology/Oncology Comment on above: Chemotherapy Treatme nt (Carboplatin) Start: 08-02-2021 Patient encounter procedure [facility] Provider [facility] Start: 08-02-2021 Telephone encounter Cynthia olivera [...] Evaluation and management of inpatient BONITA PITTMAN Facility:[facility] Start: 04-05-2021 End: 04-05-2021 Subsequent hospital visit by physician Arrival Time Radiology Work Phone: Radiology Pet CT Comment on above: Malignant neoplasm o f head, face and neck (HCC) [C76.0] Start: 02-16-2018 End: 03-08-2018 Patient encounter procedure Evonne Ray Facility:[facility] Start: 02-16-2018 End: 03-08-2018 Patient encounter procedure EVONNE RAY [facility] Start: 01-19-2018 End: 02-16-2018 [facility] Date Procedure Procedure Detail Performing Clinician Start: 12-20-2024 [facility] TSH W/REFLEX FT4 Generic External Da ta Provider Start: 12-20-2024 Assay of thyroid stimulating hormone tsh G Сергей Carpenter MD Work Phone: Start: 08-30-2024 BLOOD CULTURE 2 Generic External Yg a Provider Start: 08-30-2024 BLOOD CULTURE 1 Generic External Yg a Provider Start: 06-10-2024 Ct upper extremity w/o contrast [...] Plasma DENIA Carpenter MD Work Phone: Start: 02-11-[address] attenuation skull base mid-thigh Esdras Cash MD Work Phone: Start: 02-11-2023 Gluc bld gluc mntr dev cleared fda spec home use [facility] Provider Start: 09-10-2022 Ct thorax w/contrast material G Сергей Carpenter MD Work Phone: Start: 09-10-2022 Ct soft tissue neck w/o contrast material Kathrine Carpenter MD Work Phone: Start: 04-14-2022 Ct thorax w/contrast material G Сергей Carpenter MD Work Phone: Start: 04-14-2022 Ct soft tissue neck w/contrast material Kathirne Carpenter MD Work Phone: Start: 04-14-2022 CREATININE [...] Blood count complete auto&auto difrntl wbc Nathaly Biggs APRN.CNP Work Phone: Start: 04-05-[address] attenuation skull base mid-thigh G Сергей Carpenter MD Work Phone: Start: 04-05-2021 Gluc bld gluc mntr dev cleared fda spec home use [facility] Provider Start: 04-04-2020 Colonoscopy Jr. Chen DO Work Phone: Start: 03-01-2018 Swallowing funcj w/cineradiograpy/vidradiog EVONNE RAY Start: 02-19-2018 Radiologic exam chest single view EVONNE RAY Start: 02-16-2018 Radiologic exam abdomen 1 view EVONNE RAY Start: 02-15-2018 POCT GLUCOSE BIANCA RAYCHAUDHURI Start: 02-15-2018 MECHANICAL VENTILATION BIANCA RAYZANDERUDHUR I Start: 02-15-2018 NEBULIZER TX INTERMITTENT BIANCA RAYZANDERUD HURI Start: 02-15-2018 MECHANICAL VENTILATION BIANCA RAYZANDERUDHUR I Start: 02-15-2018 Basic metabolic panel calcium total BIANCA RAYZANDERUDHURI Start: 02-15-2018 Blood count complete automated RATUL RAYCHAUDHURI Start: 02-15-2018 POC GLUCOSE FINGERSTICK BIANCA RAYZANDERUDHU RI Start: 02-15-2018 POCT GLUCOSE BIANCA RAYCHAUDHURI Start: 02-15-2018 DISCHARGE PATIENT BIANCA RAYZANDERUDHURI Start: 02-15-2018 NEBULIZER TX INTERMITTENT RATPEDRO RAYZANDERUD HURI Start: 02-15-2018 POC GLUCOSE FINGERSTICK BIANCA RAYZANDERUDHU RI Start: 02-15-2018 POCT GLUCOSE BIANCA RAYZANDERUDHURI Start: 02-15-2018 END TIDAL CO2 CONTINUOUS BIANCA RAYZANDERUDH URI Start: 02-15-2018 INITIATE OXYGEN THERAPY PROTOCOL BIANCA RAYZANDERUDHURI Start: 02-15-2018 NEBULIZER TX INTERMITTENT RATUL RAYCHAUD HURI Start: 02-15-2018 Assay of magnesium RATPEDRO RAYCHAUDHURI Start: 02-15-2018 Assay of phosphorus inorganic BIANCA RAYCHAUDHURI Start: 02-15-2018 Basic metabolic panel calcium total BIANCA RAYCHAUDHURI Start: 02-15-2018 Blood count complete automated RATUL RAYCHAUDHURI Start: 02-15-2018 POCT GLUCOSE BIANCA RAYCHAUDHURI Start: 02-15-2018 NEBULIZER TX INTERMITTENT RATUL RAYCHAUD HURI Start: 02-15-2018 POC GLUCOSE FINGERSTICK BIANCA RAYZANDERUDHU RI Start: 02-15-2018 WOUND CARE RATUL RAYCHAUDHURI Start: 02-15-2018 Radiologic exam chest single view RATUL RAYCHAUDHURI Start: 02-14-2018 POCT GLUCOSE PACOUL RAYCHAUDHURI Start: 02-14-2018 NEBULIZER TX INTERMITTENT RATPEDRO RAYZANDERUD HURI Start: 02-14-2018 POC GLUCOSE FINGERSTICK BIANCA RAYZANDERUDHU RI Start: 02-14-2018 POCT GLUCOSE BIANCA RAYCHAUDHURI Start: 02-14-2018 NEBULIZER TX INTERMITTENT BIANCA RAYZANDERUD HURI Start: 02-14-2018 TRANSFER PATIENT BIANCA RAYZANDERUDHURI Start: 02-14-2018 POCT GLUCOSE BIANCA RAYCHAUDHURI Start: 02-14-2018 Us retroperitoneal real time w/image limited BIANCA RAYZANEDRUDHURI Start: 02-14-2018 END TIDAL CO2 CONTINUOUS BIANCA RAYZANDERUDH URI Start: 02-14-2018 INITIATE OXYGEN THERAPY PROTOCOL BIANCA RAYZANDERUDHURI Start: 02-14-2018 NEBULIZER TX INTERMITTENT BIANCA RAYZANDERUD HURI Start: 02-14-2018 Radiologic exam chest single view BIANCA RAYCHAUDHURI Start: 02-14-2018 Basic metabolic panel calcium total BIANCA RAYCHAUDHURI Start: 02-14-2018 Blood count complete automated BIANCA RAYCHAUDHURI Start: 02-14-2018 POCT GLUCOSE BIANCA RAYCHAUDHURI Start: 02-14-2018 NEBULIZER TX INTERMITTENT BIANCA RAYZANDERUD HURI Start: 02-14-2018 RESTRAINTS NON-VIOLENT OR [id number] BIANCA RAYCHAUDHURI Start: 02-13-2018 POCT GLUCOSE PACOUL RAYCHAUDHURI Start: 02-13-2018 NEBULIZER TX INTERMITTENT RATUL RAYCHAUD HURI Start: 02-13-2018 POCT GLUCOSE BIANCA RAYCHAUDHURI Start: 02-13-2018 CULTURE BLOOD #1 BIANCA RAYCHAUDHURI Start: 02-13-2018 NEBULIZER TX INTERMITTENT RATUL RAYCHAUD HURI Start: 02-13-2018 Ct abdomen & pelvis w/o contrast material BIANCA RAYCHAUDHURI Start: 02-13-2018 POCT GLUCOSE BIANCA RAYCHAUDHURI Start: 02-13-2018 END TIDAL CO2 CONTINUOUS BIANCA RAYZANDERUDH URI Start: 02-13-2018 INITIATE OXYGEN THERAPY PROTOCOL BIANCA RAYCHAUDHURI Start: 02-13-2018 NEBULIZER TX INTERMITTENT BIANCA RAYZANDERUD HURI Start: 02-13-2018 Radiologic exam abdomen 1 view BIANCA RAYCHAUDHURI Start: 02-13-2018 Basic metabolic panel calcium total BIANCA RAYCHAUDHURI Start: 02-13-2018 Blood count complete automated BIANCA RAYCHAUDHURI Start: 02-13-2018 BRAIN NATRIURETIC PEPTIDE BIANCA RAYZANDERUD HURI Start: 02-13-2018 POCT GLUCOSE BIANCA RAYZANDERUDHURI Start: 02-13-2018 NEBULIZER TX INTERMITTENT BIANCA RAYZANDERUD HURI Start: 02-12-2018 POCT GLUCOSE BIANCA RAYZANDERUDHURI Start: 02-12-2018 NEBULIZER TX INTERMITTENT BIANCA RAYZANDERUD HURI Start: 02-12-2018 POCT GLUCOSE BIANCA RAYZANDERUDHURI Start: 02-12-2018 NEBULIZER TX INTERMITTENT BIANCA RAYZANDERUD HURI Start: 02-12-2018 ARTERIAL BLOOD GAS, POC BIANCA RAYZANDERUDHU RI Start: 02-12-2018 POCT GLUCOSE BIANCA RAYZANDERUDHURI Start: 02-12-2018 END TIDAL CO2 CONTINUOUS BIANCA RAYZANDERUDH URI Start: 02-12-2018 INITIATE OXYGEN THERAPY PROTOCOL BIANCA RAYZANDERUDHURI Start: 02-12-2018 NEBULIZER TX INTERMITTENT BIANCA RAYZANDERUD HURI Start: 02-12-2018 Radiologic exam chest single view BIANCA RAYZANDERUDHURI Start: 02-12-2018 ABG DRAW BIANCA RAYZANDERUDHURI Start: 02-12-2018 MISCELLANEOUS NURSING CARE ORDER (SPECIFY) BIANCA RAYCHAUDHURI Start: 02-12-2018 Assay of magnesium BIANCA RAYCHAUDHURI Start: 02-12-2018 Assay of phosphorus inorganic BIANCA RAYZANDERUDHURI Start: 02-12-2018 Basic metabolic panel calcium total BIANCA RAYZANDERUDHURI Start: 02-12-2018 Blood count complete automated BIANCA RAYCHAUDHURI Start: 02-12-2018 BRAIN NATRIURETIC PEPTIDE BIANCA RAYZANDERUD HURI Start: 02-12-2018 POCT GLUCOSE BIANCA RAYCHAUDHURI Start: 02-12-2018 NEBULIZER TX INTERMITTENT BIANCA JASONI Start: 02-12-2018 WOUND CARE BIANCA DE JESUSRI Start: 02-11-2018 POCT GLUCOSE BIANCA ODONNELLUDYAMILETHRI Start: 02-11-2018 NEBULIZER TX INTERMITTENT BIANCA JASONI Start: 02-11-2018 POCT GLUCOSE BIANCA ODONNELLUDYAMILETHRI Start: 02-11-2018 NEBULIZER TX INTERMITTENT BIANCA JASONI Start: 02-11-2018 POCT GLUCOSE BIANCA DE JESUSRI Start: 02-11-2018 END TIDAL CO2 CONTINUOUS BIANCA BRADY URI Start: 02-11-2018 INITIATE OXYGEN THERAPY PROTOCOL BIANCA DE JESUSRI Start: 02-11-2018 NEBULIZER TX INTERMITTENT BIANCA MONET Start: 02-11-2018 RESTRAINTS NON-VIOLENT OR [id number] BIANCA DE JESUSRI Start: 02-11-2018 Assay of triglycerides BIANCA ROCK I Start: 02-11-2018 Basic metabolic panel calcium total BIANCA DE JESUSRI Start: 02-11-2018 Blood count complete automated BIANCA DE JESUSRI Start: 02-11-2018 BRAIN NATRIURETIC PEPTIDE BIANCA MONET Start: 02-11-2018 POCT GLUCOSE BIANCA DE JESUSRI Start: 02-11-2018 NEBULIZER TX INTERMITTENT BIANCA MONET Start: 02-11-2018 CULTURE BLOOD #1 BIANCA DE JESUSRI Start: 02-10-2018 POCT GLUCOSE BIANCA DE JESUSRI Start: 02-10-2018 NEBULIZER TX INTERMITTENT BIANCA JASONI Start: 02-10-2018 MISCELLANEOUS NURSING CARE ORDER (SPECIFY) BIANCA DE JESUSRI Start: 02-10-2018 POCT GLUCOSE BIANCA DE JESUSRI Start: 02-10-2018 Radiologic exam abdomen 1 view BIANCA DE JESUSRI Start: 02-10-2018 NEBULIZER TX INTERMITTENT BIANCA JASONI Start: 02-10-2018 Transfusion blood/blood components BIANCA DE JESUSRI Start: 02-10-2018 POCT GLUCOSE BIANCA DE JESUSRI Start: 02-10-2018 END TIDAL CO2 CONTINUOUS BIANCA BRADY URI Start: 02-10-2018 INITIATE OXYGEN THERAPY PROTOCOL BIANCA DE JESUSRI Start: 02-10-2018 NEBULIZER TX INTERMITTENT BIANCA RAYZANDERUD HURI Start: 02-10-2018 Basic metabolic panel calcium total BIANCA RAYZANDERUDHURI Start: 02-10-2018 BRAIN NATRIURETIC PEPTIDE RATPEDRO RAYZANDERUD HURI Start: 02-10-2018 PREVIOUS SPECIMEN BIANCA RAYZANDERUDHURI Start: 02-10-2018 INITIATE RT PROTOCOL BIANCA RAYZANDERUDHURI Start: 02-10-2018 Blood count complete automated BIANCA RAYZANDERUDHURI Start: 02-10-2018 Drug tst prsmv instrmnt chem analyzers pr date BIANCA RAYZANDERUDHURI Start: 02-10-2018 POCT GLUCOSE BIANCA RAYZANDERUDHURI Start: 02-10-2018 NEBULIZER TX INTERMITTENT BIANCA ODONNELLUD HURI Start: 02-10-2018 WOUND CARE BIANCA DE JESUSRI Start: 02-09-2018 POCT GLUCOSE BIANCA RAYZANDERUDHURI Start: 02-09-2018 NEBULIZER TX INTERMITTENT BIANCA ODONNELLUD HURI Start: 02-09-2018 EKG 12-LEAD BIANCA ODONNELLUDHURI Start: 02-09-2018 EKG REPORT BIANCA ODONNELLUDYAMILETHRI Start: 02-09-2018 POCT GLUCOSE BIANCA ODONNELLUDHURI Start: 02-09-2018 RESTRAINTS NON-VIOLENT OR [id number]-[id number] BIANCA ODONNELLUDYAMILETHRI Start: 02-09-2018 NEBULIZER TX INTERMITTENT BIANCA ODONNELLUD HURI Start: 02-09-2018 ARTERIAL BLOOD GAS, POC BIANCA ODONNELLUDYAMILETH RI Start: 02-09-2018 POCT GLUCOSE BIANCA RAYZANDERUDYAMILETHRI Start: 02-09-2018 END TIDAL CO2 CONTINUOUS BIANCA ALEXANDERH URI Start: 02-09-2018 INITIATE OXYGEN THERAPY PROTOCOL BIANCA ODONNELLUDHURI Start: 02-09-2018 NEBULIZER TX INTERMITTENT BIANCA ODONNELLUD HURI Start: 02-09-2018 Basic metabolic panel calcium total BIANCA ODONNELLUDYAMILETHRI Start: 02-09-2018 Blood count complete automated BIANCA RAYZANDERUDHURI Start: 02-09-2018 BRAIN NATRIURETIC PEPTIDE BIANCA RAYZANDERUD HURI Start: 02-09-2018 POCT GLUCOSE BIANCA RAYZANDERUDHURI Start: 02-09-2018 NEBULIZER TX INTERMITTENT BIANCA ODONNELLUD HURI Start: 02-08-2018 POCT GLUCOSE BIANCA ODONNELLUDHURI Start: 02-08-2018 NEBULIZER TX INTERMITTENT BIANCA JASONI Start: 02-08-2018 TRACH CARE BIANCA ODONNELLUDYAMILETHRI Start: 02-08-2018 POCT GLUCOSE BIANCA ODONNELLUDHURI Start: 02-08-2018 NEBULIZER TX INTERMITTENT BIANCA ODONNELLUD CASIEI Start: 02-08-2018 Echo tthrc r-t 2d w/wom-mode compl spec&colr d BIANCA DE JESUSRI Start: 02-08-2018 POCT GLUCOSE BIANCA ODONNELLUDYAMILETHRI Start: 02-08-2018 END TIDAL CO2 CONTINUOUS BIANCA BRADY URI Start: 02-08-2018 INITIATE OXYGEN THERAPY PROTOCOL BIANCA DE JESUSRI Start: 02-08-2018 NEBULIZER TX INTERMITTENT BIANCA JASONI Start: 02-08-2018 RESTRAINTS NON-VIOLENT OR CRI-UDXX-PEASHJHAOJS BIANCA DE JESUSRI Start: 02-08-2018 Assay of magnesium BIANCA DE JESUSRI Start: 02-08-2018 Assay of phosphorus inorganic BIANCA DE JESUSRI Start: 02-08-2018 Basic metabolic panel calcium total BIANCA DE JESUSRI Start: 02-08-2018 Blood count complete automated BIANCA DE JESUSRI Start: 02-08-2018 BRAIN NATRIURETIC PEPTIDE BIANCA JASONI Start: 02-08-2018 ARTERIAL BLOOD GAS, POC BIANCA DE JESUS RI Start: 02-08-2018 POCT GLUCOSE BIANCA DE JESUSRI Start: 02-08-2018 NEBULIZER TX INTERMITTENT BIANCA JASONI Start: 02-08-2018 WOUND CARE BIANCA DE JESUSRI Start: 02-07-2018 POCT GLUCOSE BIANCA ODONNELLUDYAMILETHRI Start: 02-07-2018 NEBULIZER TX INTERMITTENT BIANCA JASONI Start: 02-07-2018 POCT GLUCOSE BIANCA DE JESUSRI Start: 02-07-2018 NEBULIZER TX INTERMITTENT BIANCA JASONI Start: 02-07-2018 Radiologic exam chest single view BIANCA DE JESUSRI Start: 02-07-2018 POCT GLUCOSE BIANCA DE JESUSRI Start: 02-07-2018 END TIDAL CO2 CONTINUOUS BIANCA BRADY URI Start: 02-07-2018 INITIATE OXYGEN THERAPY PROTOCOL BIANCA DE JESUSRI Start: 02-07-2018 NEBULIZER TX INTERMITTENT BIANCA JASONI Start: 02-07-2018 Basic metabolic panel calcium total BIANCA DE JESUSRI Start: 02-07-2018 Blood count complete automated BIANCA DE JESUSRI Start: 02-07-2018 BRAIN NATRIURETIC PEPTIDE BIANCA JASONI Start: 02-07-2018 ARTERIAL BLOOD GAS, POC BIANCA DE JESUS RI Start: 02-07-2018 POCT GLUCOSE BIANCA DE JESUSRI Start: 02-07-2018 NEBULIZER TX INTERMITTENT BIANCA JASONI Start: 02-07-2018 HEMOGLOBIN AND HEMATOCRIT, BLOOD BIANCA DE JESUSRI Start: 02-07-2018 Assay of lactate BIANCA DE JESUSRI Start: 02-06-2018 POCT GLUCOSE BIANCA DE JESUSRI Start: 02-06-2018 NEBULIZER TX INTERMITTENT BIANCA MONET Start: 02-06-2018 POCT GLUCOSE BIANCA DE JESUSRI Start: 02-06-2018 NEBULIZER TX INTERMITTENT BIANCA MONET Start: 02-06-2018 TRANSFUSE RED BLOOD CELLS BIANCA MONET Start: 02-06-2018 Assay of lactate BIANCA DE JESUSRI Start: 02-06-2018 POCT GLUCOSE BIANCA DE JESUSRI Start: 02-06-2018 END TIDAL CO2 CONTINUOUS BIANCA BRADY URI Start: 02-06-2018 INITIATE OXYGEN THERAPY PROTOCOL BIANCA COSTA Start: 02-06-2018 NEBULIZER TX INTERMITTENT BIANCA MONET Start: 02-06-2018 Assay of amylase BIANCA COSTA Start: 02-06-2018 Assay of lipase BIANCA DE JESUSRI Start: 02-06-2018 Basic metabolic panel calcium total BIANCA DE JESUSRI Start: 02-06-2018 Blood count complete automated BIANCA ODONNELLUDYAMILETHRI Start: 02-06-2018 BRAIN NATRIURETIC PEPTIDE BIANCA JASNOI Start: 02-06-2018 CK BIANCA DE JESUSRI Start: 02-06-2018 MYOGLOBIN, SERUM BIANCA DE JESUSRI Start: 02-06-2018 ARTERIAL BLOOD GAS, POC BIANCA DE JESUS RI Start: 02-06-2018 POCT GLUCOSE BIANCA DE JESUSRI Start: 02-06-2018 NEBULIZER TX INTERMITTENT BIANCA JASONI Start: 02-06-2018 INITIATE RT PROTOCOL BIANCA DE JESUSRI Start: 02-06-2018 NEBULIZER TX INTERMITTENT BIANCA JASONI Start: 02-05-2018 POCT GLUCOSE BIANCA DE JESUSRI Start: 02-05-2018 POCT GLUCOSE BIANCA ODONNELLUDYAMILETHRI Start: 02-05-2018 Basic metabolic panel calcium total BIANCA DE JESUSRI Start: 02-05-2018 HEMOGLOBIN AND HEMATOCRIT, BLOOD BIANCA DE JESUSRI Start: 02-05-2018 RESTRAINTS NON-VIOLENT OR JMH-OBLJ-DNERURPMAUR BIANCA DE JESUSRI Start: 02-05-2018 TRANSFUSE RED BLOOD CELLS BIANCA JASONI Start: 02-05-2018 TEG, RAPID CITRATED BIANCA COSTA Start: 02-05-2018 TRANSFUSE RED BLOOD CELLS BIANCA MONET Start: 02-05-2018 POCT GLUCOSE BIANCA DE JESUSRI Start: 02-05-2018 END TIDAL CO2 CONTINUOUS BIANCA BRADY URI Start: 02-05-2018 INITIATE OXYGEN THERAPY PROTOCOL BIANCA DE JESUSRI Start: 02-05-2018 Autol bld/component collj storage predeposited BIANCA COSTA Start: 02-05-2018 TYPE AND SCREEN BIANCA DE JESUSRI Start: 02-05-2018 PREPARE RBC (CROSSMATCH) BIANCA BRADY URI Start: 02-05-2018 Basic metabolic panel calcium total BIANCA DE JESUSRI Start: 02-05-2018 Blood count complete automated BIANCA DE JESUSRI Start: 02-05-2018 POCT GLUCOSE BIANCA DE JESUSRI Start: 02-05-2018 ARTERIAL BLOOD GAS, POC BIANCA ODONNELLUDHU RI Start: 02-05-2018 Radiologic exam chest single view BIANCA DE JESUSRI Start: 02-05-2018 POC BLOOD GAS BIANCA DE JESUSRI Start: 02-05-2018 END TIDAL CO2 CONTINUOUS BIANCA ALEXANDERH URI Start: 02-05-2018 ARTERIAL BLOOD GAS, POC BIANCA ODONNELLUDHU RI Start: 02-05-2018 POCT GLUCOSE BIANCA DE JESUSRI Start: 02-05-2018 WOUND CARE BIANCA DE JESUSRI Start: 02-05-2018 Basic metabolic panel calcium total BIANCA ODONNELLUDHURI Start: 02-04-2018 POCT GLUCOSE BIANCA ALEXANDERHURI Start: 02-04-2018 OSMOLALITY, URINE BIANCA DE JESUSRI Start: 02-04-2018 Basic metabolic panel calcium total BIANCA ALEXANDERHURI Start: 02-04-2018 OSMOLALITY BIANCA DE JESUSRI Start: 02-04-2018 POCT GLUCOSE BIANCA DE JESUSRI Start: 02-04-2018 AMMONIA BIANCA DE JESUSRI Start: 02-04-2018 Basic metabolic panel calcium total BIANCA DE JESUSRI Start: 02-04-2018 Hepatic function panel BIANCA DE JESUSR I Start: 02-04-2018 Creatinine [Mass/volume] in Urine BIANCA DE JESUSRI Start: 02-04-2018 SODIUM, URINE, RANDOM BIANCA DE JESUSRI Start: 02-04-2018 RESTRAINTS NON-VIOLENT OR [id number] BIANCA ALEXANDERRI Start: 02-04-2018 Assay of lactate BIANCA DE JESUSRI Start: 02-04-2018 POCT GLUCOSE BIANCA DE JESUSRI Start: 02-04-2018 INITIATE OXYGEN THERAPY PROTOCOL BIANCA DE JESUSRI Start: 02-04-2018 PHARMACY CONSULT FOR RENAL DOSING BIANCA DE JESUSRI Start: 02-04-2018 Basic metabolic panel calcium total BIANCA ED JESUSRI Start: 02-04-2018 Blood count complete automated BIANCA DE JESUSRI Start: 02-04-2018 ARTERIAL BLOOD GAS, POC BIANCA DE JESUS RI Start: 02-04-2018 ABG DRAW BIANCA DE JESUSRI Start: 02-04-2018 POCT GLUCOSE BIANCA DE JESUSRI Start: 02-03-2018 POCT GLUCOSE BIANCA DE JESUSRI Start: 02-03-2018 POCT GLUCOSE BIANCA DE JESUSRI Start: 02-03-2018 Assay of magnesium BIANCA DE JESUSRI Start: 02-03-2018 Assay of phosphorus inorganic BIANCA DE JESUSRI Start: 02-03-2018 Sodium serum plasma or whole blood BIANCA DE JESUSRI Start: 02-03-2018 RESTRAINTS NON-VIOLENT OR [id number] BIANCA ALEXANDERRI Start: 02-03-2018 POCT GLUCOSE BIANCA DE JESUSRI Start: 02-03-2018 INITIATE OXYGEN THERAPY PROTOCOL BIANCA COSTA Start: 02-03-2018 Assay of magnesium BIANCA DE JESUSRI Start: 02-03-2018 Assay of phosphorus inorganic BIANCA DE JESUSRI Start: 02-03-2018 Basic metabolic panel calcium total BIANCA DE JESUSRI Start: 02-03-2018 Blood count complete automated BIANCA ALEXANDERRI Start: 02-03-2018 POCT GLUCOSE BIANCA ALEXANDERRI Start: 02-03-2018 Assay of lactate BIANCA DE JESUSRI Start: 02-03-2018 Basic metabolic panel calcium total BIANCA DE JESUSRI Start: 02-03-2018 Blood count complete automated BIANCA ALEXANDERRI Start: 02-03-2018 Radiologic exam chest single view BIANCA ALEXANDERRI Start: 02-03-2018 ARTERIAL BLOOD GAS, POC BIANCA ALEXANDER RI Start: 02-03-2018 NOTIFICATION PANEL, POC BIANCA ALEXANDER RI Start: 02-03-2018 POCT GLUCOSE BIANCA ALEXANDERRI Start: 02-03-2018 POC BLOOD GAS BIANCA ALEXANDERRI Start: 02-03-2018 Sodium serum plasma or whole blood BIANCA ALEXANDERRI Start: 02-03-2018 WOUND CARE BIANCA ALEXANDERRI Start: 02-02-2018 PHARMACY TO DOSE VANCOMYCIN BIANCA KEYES Start: 02-02-2018 POCT GLUCOSE BIANCA DE JESUSRI Start: 02-02-2018 POCT GLUCOSE BIANCA ALEXANDERRI Start: 02-02-2018 Sodium serum plasma or whole blood BIANCA ALEXANDERRI Start: 02-02-2018 Sodium serum plasma or whole blood BIANCA ALEXANDERRI Start: 02-02-2018 Creatinine [Mass/volume] in Urine BIANCA ALEXANDERRI Start: 02-02-2018 OSMOLALITY, URINE BIANCA DE JESUSRI Start: 02-02-2018 SODIUM, URINE, RANDOM BIANCA DE JESUSRI Start: 02-02-2018 IP CONSULT TO NEPHROLOGY [facility] Start: 02-02-2018 POCT GLUCOSE BIANCA ALEXANDERRI Start: 02-02-2018 INITIATE OXYGEN THERAPY PROTOCOL BIANCA ODONNELLUDHURI Start: 02-02-2018 RESTRAINTS NON-VIOLENT OR [id number] BIANCA ODONNELLUDHURI Start: 02-02-2018 Basic metabolic panel calcium total BIANCA ODONNELLUDHURI Start: 02-02-2018 Blood count complete automated BIANCA ODONNELLUDHURI Start: 02-02-2018 CALCIUM, IONIZED BIANCA ODONNELLUDHURI Start: 02-02-2018 OSMOLALITY BIANCA RAYZANDERUDHURI Start: 02-02-2018 POCT GLUCOSE BIANCA RAYZANDERUDHURI Start: 02-02-2018 Sodium serum plasma or whole blood BIANCA ODONNELLUDHURI Start: 02-01-2018 POCT GLUCOSE BIANCA ODONNELLUDHURI Start: 02-01-2018 Sodium serum plasma or whole blood BIANCA ODNONELLUDHURI Start: 02-01-2018 POCT GLUCOSE BIANCA ODONNELLUDHURI Start: 02-01-2018 ARTERIAL BLOOD GAS, POC BIANCA RAYZANDERUDHU RI Start: 02-01-2018 POC GLUCOSE FINGERSTICK BIANCA ODONNELLUDYAMILETH RI Start: 02-01-2018 Radiologic exam chest single view BIANCA DE JESUSRI Start: 02-01-2018 POC BLOOD GAS BIANCA ODONNELLUDHURI Start: 02-01-2018 TRANSFER PATIENT BIANCA ODONNELLUDHURI Start: 02-01-2018 ORAL CARE BIANCA ODONNELLUDHURI Start: 02-01-2018 Basic metabolic panel calcium total BIANCA ODONNELLUDYAMILETHRI Start: 02-01-2018 Blood count complete auto&auto difrntl wbc BIANCA ODONNELLUDHURI Start: 02-01-2018 RESTRAINTS NON-VIOLENT OR [id number] BIANCA ODONNELLUDHURI Start: 02-01-2018 NURSING COMMUNICATION BIANCA DE JESUSRI Start: 02-01-2018 SUPPLY REQUEST BIANCA ODONNELLUDHURI Start: 02-01-2018 WOUND CARE BIANCA ODONNELLUDHURI Start: 02-01-2018 TRANSFER PATIENT BIANCA ODONNELLUDHURI Start: 02-01-2018 POCT GLUCOSE BIANCA ODONNELLUDHURI Start: 02-01-2018 INITIATE OXYGEN THERAPY PROTOCOL BIANCA ODONNELLUDHURI Start: 02-01-2018 POCT GLUCOSE BIANCA ODONNELLUDHURI Start: 02-01-2018 POC GLUCOSE FINGERSTICK RATUL RAYCHAUDHU RI Start: 01-31-2018 POCT GLUCOSE RATPEDRO RAYCHAUDHURI Start: 01-31-2018 POC GLUCOSE FINGERSTICK BIANCA RAYCHAUDHU RI Start: 01-31-2018 POCT GLUCOSE BIANCA RAYCHAUDHURI Start: 01-31-2018 POC GLUCOSE FINGERSTICK BIANCA RAYZANDERUDHU RI Start: 01-31-2018 POCT GLUCOSE BIANCA RAYZANDERUDHURI Start: 01-31-2018 INITIATE OXYGEN THERAPY PROTOCOL BIANCA RAYZANDERUDHURI Start: 01-31-2018 Assay of magnesium BIANCA RAYCHAUDHURI Start: 01-31-2018 Assay of phosphorus inorganic BIANCA RAYCHAUDHURI Start: 01-31-2018 Basic metabolic panel calcium total BIANCA RAYZANDERUDHURI Start: 01-31-2018 Blood count complete auto&auto difrntl wbc BIANCA RAYZANDERUDHURI Start: 01-31-2018 RESTRAINTS NON-VIOLENT OR [id number] BIANCA RAYZANDERUDHURI Start: 01-31-2018 POC GLUCOSE FINGERSTICK BIANCA RAYZANDERUDHU RI Start: 01-31-2018 POCT GLUCOSE BIANCA RAYZANDERUDHURI Start: 01-31-2018 Urnls dip stick/tablet reagent auto microscopy BIANCA RAYZANDERUDHURI Start: 01-31-2018 POC GLUCOSE FINGERSTICK BIANCA RAYZANDERUDHU RI Start: 01-30-2018 POCT GLUCOSE BIANCA RAYZANDERUDHURI Start: 01-30-2018 POCT GLUCOSE BIANCA RAYZANDERUDHURI Start: 01-30-2018 ANAEROBIC AND AEROBIC CULTURE BIANCA RAYZANDERUDHURI Start: 01-30-2018 POC GLUCOSE FINGERSTICK BIANCA RAYZANDERUDHU RI Start: 01-30-2018 Radiologic exam chest single view BIANCA RAYZANDERUDHURI Start: 01-30-2018 POCT GLUCOSE BIANCA RAYCHAUDHURI Start: 01-30-2018 INITIATE OXYGEN THERAPY PROTOCOL BIANCA RAYZANDERUDHURI Start: 01-30-2018 CULTURE BLOOD #1 BIANCA RAYZANDERUDHURI Start: 01-30-2018 Assay of magnesium BIANCA RAYZANDERUDHURI Start: 01-30-2018 Assay of phosphorus inorganic BIANCA RAYZANDERUDHURI Start: 01-30-2018 Blood count complete auto&auto difrntl wbc RATUL RAYCHAUDHURI Start: 01-30-2018 Comprehensive metabolic panel BIANCA DE [...] JESUS RI Start: 01-29-2018 RESTRAINTS NON-VIOLENT OR [id number] BIANCA COSTA Start: 01-29-2018 AMMONIA BIANCA DE JESUSRI Start: 01-29-2018 Assay of triglycerides BIANCA DE JESUSR I Start: 01-29-2018 IP CONSULT TO DIETITIAN BIANCA DE JESUS RI Start: 01-29-2018 NOTIFY PHYSICIAN (SPECIFY) BIANCA BRUCEURI Start: 01-29-2018 NURSING COMMUNICATION BIANCA COSTA Start: 01-29-2018 PARENTERAL NUTRITION INDICATIONS BIANCA DE JESUSRI Start: 01-29-2018 POCT GLUCOSE BIANCA DE JESUSRI Start: 01-29-2018 INITIATE OXYGEN THERAPY PROTOCOL BIANCA DE JESUSRI Start: 01-29-2018 Radiologic exam chest single view BIANCA DE JESUSRI Start: 01-29-2018 Basic metabolic panel calcium total BIANCA DE JESUSRI Start: 01-29-2018 Blood count complete auto&auto difrntl wbc BIANCA DE JESUSRI Start: 01-29-2018 BRAIN NATRIURETIC PEPTIDE BIANCA JASONI Start: 01-28-2018 Basic metabolic panel calcium total BIANCA RAYZANDERUDHURI Start: 01-28-2018 CULTURE BLOOD #1 BIANCA RAYZANDERUDHURI Start: 01-28-2018 TRANSFER PATIENT BIANCA RAYZANDERUDYAMILETHRI Start: 01-28-2018 INSERT PICC LINE BIANCA ODONNELLUDYAMILETHRI Start: 01-28-2018 MISCELLANEOUS NURSING CARE ORDER (SPECIFY) BIANCA RAYZANDERUDYAMILETHRI Start: 01-28-2018 IP CONSULT TO INFECTIOUS DISEASES BIANCA ODONNELLUDYAMILETHRI Start: 01-28-2018 INITIATE OXYGEN THERAPY PROTOCOL BIANCA ODONNELLUDYAMILETHRI Start: 01-28-2018 NURSING COMMUNICATION BIANCA DE JESUSRI Start: 01-28-2018 Assay of magnesium BIANCA RAYZANDERUDYAMILETHRI Start: 01-28-2018 Assay of phosphorus inorganic BIANCA DE JESUSRI Start: 01-28-2018 Basic metabolic panel calcium total BIANCA ODONNELLUDYAMILETHRI Start: 01-28-2018 Blood count complete auto&auto difrntl wbc BIANCA RAYZANDERUDYAMILETHRI Start: 01-28-2018 C-reactive protein BIANCA ODONNELLUDYAMILETHRI Start: 01-28-2018 Hepatic function panel BIANCA ODONNELLUDYAMILETHR I Start: 01-28-2018 PREALBUMIN BIANCA RAYMATTRI Start: 01-28-2018 TRANSFERRIN BIANCA RAYZANDERUDHURI Start: 01-28-2018 TSH WITH REFLEX BIANCA RAYZANDERUDHURI Start: 01-28-2018 Ct abdomen & pelvis w/contrast material BIANCA RAYZANDERUDHURI Start: 01-27-2018 RESTRAINTS NON-VIOLENT OR [id number]-[id number]-LYZLNKYOIER BIANCA RAYZANDERUDHURI Start: 01-27-2018 Radiologic exam abdomen 1 view BIANCA RAYCHAUDHURI Start: 01-27-2018 Radiologic exam abdomen 1 view BIANCA RAYCHAUDHURI Start: 01-27-2018 Radex spine lumbosacral 2/3 views BIANCA RAYZANDERUDHURI Start: 01-27-2018 Radiologic exam chest single view BIANCA RAYCHAUDHURI Start: 01-27-2018 INITIATE OXYGEN THERAPY PROTOCOL BIANCA RAYZANDERUDHURI Start: 01-27-2018 Assay of magnesium BIANCA RAYZANDERUDHURI Start: 01-27-2018 Assay of phosphorus inorganic BIANCA RAYZANDERUDYAMILETHRI Start: 01-27-2018 Basic metabolic panel calcium total BIANCA RAYZANDERUDHURI Start: 01-27-2018 Blood count complete auto&auto difrntl wbc BIANCA RAYZANDERUDHURI Start: 01-27-2018 VANCOMYCIN, RANDOM BIANCA ODONNELLUDHURI Start: 01-26-2018 CALCIUM, IONIZED BIANCA RAYZANDERUDHURI Start: 01-26-2018 Potassium serum plasma/whole blood BIANCA RAYZANDERUDHURI Start: 01-26-2018 Potassium serum plasma/whole blood BIANCA RAYZANDERUDHURI Start: 01-26-2018 VANCOMYCIN, TROUGH BIANCA ODONNELLUDHURI Start: 01-26-2018 IP CONSULT TO IV TEAM BIANCA ODONNELLUDYAMILETHRI Start: 01-26-2018 INITIATE OXYGEN THERAPY PROTOCOL BIANCA ODONNELLUDYAMILETHRI Start: 01-26-2018 Radiologic exam abdomen 1 view BIANCA DE JESUSRI Start: 01-26-2018 Radiologic exam chest single view BIANCA RAYZANDERUDYAMILETHRI Start: 01-26-2018 Assay of magnesium BIANCA DE JESUSRI Start: 01-26-2018 Assay of phosphorus inorganic BIANCA DE JESUSRI Start: 01-26-2018 Basic metabolic panel calcium total BIANCA ODONNELLUDYAMILETHRI Start: 01-26-2018 Blood count complete auto&auto difrntl wbc BIANCA DE JESUSRI Start: 01-26-2018 BRAIN NATRIURETIC PEPTIDE BIANCA JASONI Start: 01-26-2018 CALCIUM, IONIZED BIANCA ODONNELLUDYAMILETHRI Start: 01-26-2018 Potassium serum plasma/whole blood BIANCA RAYZANDERUDYAMILETHRI Start: 01-25-2018 RESTRAINTS NON-VIOLENT OR [id number] BIANCA RAYZANDERUDYAMILETHRI Start: 01-25-2018 Potassium serum plasma/whole blood BIANCA RAYZANDERUDYAMILETHRI Start: 01-25-2018 Ct abdomen & pelvis w/contrast material BIANCA ODONNELLUDYAMILETHRI Start: 01-25-2018 TRANSFER PATIENT BIANCA RAYZANDERUDYAMILETHRI Start: 01-25-2018 EKG 12-LEAD BIANCA RAYCHAUDHURI Start: 01-25-2018 EKG REPORT BIANCA ODONNELLUDYAMILETHRI Start: 01-25-2018 Radiologic exam chest single view BIANCA RAYZANDERUDYAMILETHRI Start: 01-25-2018 Blood count complete auto&auto difrntl wbc BIANCA RAYCHAUDHURI Start: 01-25-2018 VANCOMYCIN, TROUGH BIANCA RAYCHAUDHURI Start: 01-25-2018 INITIATE OXYGEN THERAPY PROTOCOL BIANCA RAYZANDERUDHURI Start: 01-25-2018 Assay of magnesium BIANCA RAYCHAUDHURI Start: 01-25-2018 Assay of phosphorus inorganic BIANCA RAYZANDERUDHURI Start: 01-25-2018 Basic metabolic panel calcium total BIANCA RAYZANDERUDHURI Start: 01-25-2018 CALCIUM, IONIZED BIANCA RAYCHAUDHURI Start: 01-25-2018 Potassium serum plasma/whole blood BIANCA RAYCHAUDHURI Start: 01-24-2018 RESTRAINTS NON-VIOLENT OR [id number] BIANCA RAYZANDERUDHURI Start: 01-24-2018 Potassium serum plasma/whole blood BIANCA RAYCHAUDHURI Start: 01-24-2018 INITIATE OXYGEN THERAPY PROTOCOL BIANCA ODONNELLUDHURI Start: 01-24-2018 Assay of magnesium BIANCA ODONNELLUDHURI Start: 01-24-2018 Assay of phosphorus inorganic BIANCA ODONNELLUDHURI Start: 01-24-2018 Basic metabolic panel calcium total BIANCA ODONNELLUDHURI Start: 01-24-2018 Blood count complete automated BIANCA RAYZANDERUDHURI Start: 01-24-2018 CALCIUM, IONIZED BIANCA RAYCHAUDHURI Start: 01-24-2018 Radiologic exam chest single view BIANCA ODONNELLUDHURI Start: 01-24-2018 VANCOMYCIN, TROUGH BIANCA RAYCHAUDHURI Start: 01-24-2018 Potassium serum plasma/whole blood BIANCA RAYCHAUDHURI Start: 01-24-2018 ARTERIAL BLOOD GAS, POC BIANCA RAYZANDERUDHU RI Start: 01-24-2018 Blood gases any combination ph pco2 po2 co2 hco3 BIANCA RAYCHAUDHURI Start: 01-23-2018 CALCIUM, IONIZED BIANCA RAYCHAUDHURI Start: 01-23-2018 Assay of magnesium BIANCA RAYCHAUDHURI Start: 01-23-2018 CALCIUM, IONIZED BIANCA RAYCHAUDHURI Start: 01-23-2018 EKG 12-LEAD BIANCA RAYCHAUDHURI Start: 01-23-2018 EKG REPORT BIANCA RAYZANDERUDHURI Start: 01-23-2018 ARTERIAL BLOOD GAS, POC IBANCA RAYCHAUDHU RI Start: 01-23-2018 EKG 12-LEAD BIANCA DE JESUSRI Start: 01-23-2018 EKG REPORT BIANCA DE JESUSRI Start: 01-23-2018 Radiologic exam chest single view BIANCA COSTA Start: 01-23-2018 INITIATE OXYGEN THERAPY PROTOCOL BIANCA COSTA Start: 01-23-2018 Blood gases any combination ph pco2 po2 co2 hco3 BIANCA COSTA Start: 01-23-2018 Assay of magnesium BIANCA COSTA Start: 01-23-2018 Basic metabolic panel calcium total BIANCA COSTA Start: 01-23-2018 Blood count complete automated BIANCA COSTA Start: 01-23-2018 BRAIN NATRIURETIC PEPTIDE BIANCA MONET Start: 01-23-2018 Reticulated platelet assay BIANCA OLIVEROS Start: 01-23-2018 VANCOMYCIN, TROUGH BIANCA COSTA Start: 01-23-2018 VITAMIN D 25 HYDROXY BIANCA COSTA Start: 01-22-2018 Blood gases any combination ph pco2 po2 co2 hco3 BIANCA COSTA Start: 01-22-2018 Comprehensive metabolic panel BIANCA COSTA Start: 01-22-2018 Blood count complete auto&auto difrntl wbc BIANCA COSTA Start: 01-22-2018 ARTERIAL BLOOD GAS, POC BIANCA DE JESUS RI Start: 01-22-2018 Blood gases any combination ph pco2 po2 co2 hco3 BIANCA COSTA Start: 01-22-2018 EKG 12-LEAD BINACA COSTA Start: 01-22-2018 EKG REPORT BIANCA COSTA Start: 01-22-2018 ARTERIAL BLOOD GAS, POC BIANCA DE JESUS RI Start: 01-22-2018 Blood gases any combination ph pco2 po2 co2 hco3 BIANCA COSTA Start: 01-22-2018 IP CONSULT TO DIETITIAN BIANCA DE JESUS RI Start: 01-22-2018 PHARMACY TO DOSE VANCOMYCIN BIANCA KEYES Start: 01-22-2018 [facility] compl spec&colr d BIANCA COSTA Start: 01-22-2018 ARTERIAL BLOOD GAS, POC BIANCA [...] 01-22-2018 Basic metabolic panel calcium total BIANCA DE JESUSRI Start: 01-22-2018 Blood count complete automated BIANCA COTSA Start: 01-22-2018 BRAIN NATRIURETIC PEPTIDE BIANCA JASONI Start: 01-22-2018 Reticulated platelet assay BIANCA OLIVEROS Start: 01-22-2018 INITIATE OXYGEN THERAPY PROTOCOL BIANCA COSTA Start: 01-21-2018 LACTATE DEHYDROGENASE, BODY FLUID BIANCA DE JESUSRI Start: 01-21-2018 PROTEIN, BODY FLUID BIANCA DE JESUSRI Start: 01-21-2018 Radiologic exam chest single view BIANCA DE JESUSRI Start: 01-21-2018 LACTATE DEHYDROGENASE BIANCA COSTA Start: 01-21-2018 Protein xcpt refractometry serum plasma/whl bld BIANCA COSTA Start: 01-21-2018 Thoracentesis needle/cath pleura w/imaging BIANCA COSTA Start: 01-21-2018 VITAL SIGNS BIANCA COSTA Start: 01-21-2018 MISCELLANEOUS NURSING CARE ORDER (SPECIFY) BIANCA COSTA Start: 01-21-2018 NURSING COMMUNICATION BIANCA COSTA Start: 01-21-2018 TURN PATIENT BIANCA DE JESUSRI Start: 01-21-2018 ELEVATE HEELS OFF OF BED BIANCA ALEXANDERH URI Start: 01-21-2018 BRAIN NATRIURETIC PEPTIDE BIANCA JASONI Start: 01-21-2018 Creatinine [Mass/volume] in Urine BIANCA DE JESUSRI Start: 01-21-2018 SODIUM, URINE, RANDOM BIANCA DE JESUSRI Start: 01-21-2018 Radiologic exam chest single view BIANCA DE JESUSRI Start: 01-21-2018 Radiologic exam abdomen 1 view RATUL RAYCHAUDHURI Start: 01-21-2018 TRANSFER PATIENT RATPEDRO RAYZANDERUDHURI Start: 01-21-2018 Assay of lactate RATPEDRO RAYCHAUDHURI Start: 01-21-2018 Assay of magnesium RATPEDRO RAYCHAUDHURI Start: 01-21-2018 Assay of phosphorus inorganic RATPEDRO RAYCHAUDHURI Start: 01-21-2018 Basic metabolic panel calcium total BIANCA RAYCHAUDHURI Start: 01-21-2018 Blood count complete automated RATPEDRO RAYCHAUDHURI Start: 01-21-2018 CALCIUM, IONIZED RATPEDRO RAYCHAUDHURI Start: 01-21-2018 Reticulated platelet assay BIANCA RAYZANDERU DHURI Start: 01-20-2018 FALL PRECAUTIONS RATPEDRO RAYCHAUDHURI Start: 01-20-2018 EXTUBATION RATPEDRO RAYZANDERUDHURI Start: 01-20-2018 Microscopic urinalysis BIANCA RAYZANDERUDHUR I Start: 01-20-2018 URINE RT REFLEX TO CULTURE BIANCA ODONNELLU DHURI Start: 01-20-2018 INPATIENT CONSULT TO OPERATIONAL RISK ANALYST BIANCA RAYZANDERUDHURI Start: 01-20-2018 Assay of lactate BIANCA RAYZANDERUDHURI Start: 01-20-2018 Assay of magnesium BIANCA RAYZANDERUDHURI Start: 01-20-2018 Mri spinal canal cervical w/o contrast matrl BIANCA RAYZANDERUDHURI Start: 01-20-2018 Ct lumbar spine w/o contrast material RATPEDRO RAYCHAUDHURI Start: 01-20-2018 Ct thoracic spine w/o contrast material BIANCA RAYCHAUDHURI Start: 01-20-2018 RHYTHM STRIP REPORT BIANCA RAYZANDERUDHURI Start: 01-20-2018 TRANSFUSE PLATELETS BIANCA RAYZANDERUDHURI Start: 01-20-2018 Radiologic exam chest single view RATPEDRO RAYCHAUDHURI Start: 01-20-2018 ARTERIAL BLOOD GAS, POC BIANCA RAYZANDERUDHU RI Start: 01-20-2018 Assay of lactate BIANCA RAYCHAUDHURI Start: 01-20-2018 Assay of magnesium BIANCA RAYCHAUDHURI Start: 01-20-2018 Assay of phosphorus inorganic BIANCA RAYCHAUDHURI Start: 01-20-2018 Basic metabolic panel calcium total BIANCA RAYZANDERUDHURI Start: 01-20-2018 Blood count complete auto&auto difrntl wbc BIANCA RAYCHAUDHURI Start: 01-20-2018 CALCIUM, IONIZED BIANCA RAYCHAUDHURI Start: 01-20-2018 Mri spinal canal lumbar w/o contrast material BIANCA RAYZANDERUDHURI Start: 01-20-2018 Transfusion blood/blood components BIANCA RAYZANDERUDHURI Start: 01-20-2018 RESTRAINTS NON-VIOLENT OR [id number] BIANCA RAYZANDERUDHURI Start: 01-20-2018 ARTERIAL BLOOD GAS, POC BIANCA RAYZANDERUDHU RI Start: 01-20-2018 TRANSFUSE FRESH FROZEN PLASMA BIANCA ODONNELLUDHURI Start: 01-20-2018 Assay of lactate BIANCA ODONNELLUDHURI Start: 01-20-2018 Assay of magnesium BIANCA ODONNELLUDHURI Start: 01-20-2018 Assay of phosphorus inorganic BIANCA ODONNELLUDHURI Start: 01-20-2018 Basic metabolic panel calcium total BIANCA ODONNELLUDHURI Start: 01-20-2018 Blood count complete auto&auto difrntl wbc BIANCA ODONNELLUDHURI Start: 01-20-2018 CALCIUM, IONIZED BIANCA RAYZANDERUDHURI Start: 01-20-2018 Hepatic function panel BIANCA ODONNELLUDHUR I Start: 01-20-2018 TEG, RAPID CITRATED BIANCA ODONNELLUDHURI Start: 01-20-2018 MRSA DNA PROBE, NASAL BIANCA RAYZANDERUDHURI Start: 01-20-2018 TRANSFUSE FRESH FROZEN PLASMA BIANCA ODONNELLUDHURI Start: 01-20-2018 Radiologic exam chest single view BIANCA ODONNELLUDHURI Start: 01-20-2018 Blood gases any combination ph pco2 po2 co2 hco3 BIANCA RAYCHAUDHURI Start: 01-20-2018 ABDOMINAL BINDER BIANCA RAYCHAUDHURI Start: 01-20-2018 FULL CODE BIANCA RAYCHAUDHURI Start: 01-20-2018 OT EVAL AND TREAT BIANCA RAYCHAUDHURI Start: 01-20-2018 PLACE INTERMITTENT PNEUMATIC COMPRESSION DEVICE BIANCA RAYCHAUDHURI Start: 01-20-2018 PT EVAL AND TREAT BIANCA RAYCHAUDHURI Start: 01-20-2018 REASON FOR NO CHEMICAL VTE PROPHYLAXIS BIANCA RAYCHAUDHURI Start: 01-20-2018 TRANSMITTER CHIEF EVAL AND TREAT BIANCA RAYZANDERUDHURI Start: 01-20-2018 VITAL SIGNS BIANCA DE JESUSRI Start: 01-20-2018 TRANSFER PATIENT BIANCA DE JESUSRI Start: 01-20-2018 PLATELET COUNT BIANCA COSTA Start: 01-20-2018 TEG, RAPID CITRATED BIANCA DE JESUSRI Start: 01-20-2018 CALCIUM, IONIZED BIANCA DE JESUSRI Start: 01-20-2018 FIBRINOGEN BIANCA COSTA Start: 01-20-2018 OPEN HEART PANEL BIANCA DE JESUSRI Start: 01-20-2018 Prothrombin time BIANCA COSTA Start: 01-20-2018 Thromboplastin time partial plasma/whole blood BIANCA COSTA Start: 01-19-2018 PATIENT STATUS (FROM ED OR OR/PROCEDURAL) BIANCA COSTA Start: 01-19-2018 SURGICAL PATHOLOGY BIANCA DE JESUSRI Start: 01-19-2018 TRANSFUSE RED BLOOD CELLS BIANCA MONET Start: 01-19-2018 PREPARE RBC (CROSSMATCH) BIANCA BRADY URI Start: 01-19-2018 CALCIUM, IONIZED BIANCA DE JESUSRI Start: 01-19-2018 OPEN HEART PANEL BIANCA DE JESUSRI Start: 01-19-2018 Transfusion blood/blood components BIANCA COSTA Start: 01-19-2018 Ct angio abd&plvis cntrst mtrl w/wo cntrst img BIANCA COSTA Start: 01-19-2018 IP CONSULT [facility] Start: 01-19-2018 TYPE AND SCREEN BIANCA COSTA Start: 01-19-2018 Assay of amylase BIANCA COSTA Start: 01-19-2018 Assay of lipase BIANCA COSTA Start: 01-19-2018 Hepatic function panel BIANCA ROCK I Start: 01-19-2018 TEG, RAPID CITRATED BIANCA DE JESUSRI Start: 01-19-2018 TRAUMA PANEL BIANCA DE JESUSRI Start: 01-19-2018 SURGICAL PATHOLOGY BIANCA DE JESUSRI Start: 04-06-2017 INFLUENZA, QUADV, 3 YRS AND OLDER, IM, MDV, 0.5ML (FLUZONE QUADV) HASEEB ALANIS Start: 04-06-2017 PNEUMOCOCCAL POLYSACCHARIDE VACCINE 23-VALENT =>2YO SQ/IM HASEEB NELSONTUTZ Hernia repair Gildardo Lacy Work Phone: History of radiation therapy History of radiation therapy Kathrine Carpenter MD Work Phone: History of radiation therapy History of radiation therapy Kathrine Carpenter MD Work Phone: Operation on lung Gildardo crespor Work Phone: Splenectomy Gildardo Lacy Work Phone: Total colonoscopy Gildardo stone Work Phone: Plan of Treatment Date Care Activity Detail Author Start: 05-31-2034 DTaP,Tdap and Td Vaccines (3 - Td or Tdap) DTaP,Tdap and Td Vaccines (3 - Td or Tdap) [facility] Start: 05-31-2034 DTaP/Tdap/Td Vaccine s (3 - Td or Tdap) DTaP/Tdap/Td Vaccines (3 - Td or Tdap) [facility] Start: 05-31-2034 Urine microalbumin profile DTaP,Tdap,Td Vaccine (3 - Td or Tdap) [facility] Start: 04-04-2030 Screening for malign ant neoplasm of colon [facility] Start: 09-07-2028 Lipid panel Lipid Screening [facility] Start: 05-14-2028 DTaP/Tdap/Td Vaccine s (2 - Td or Tdap) DTaP/Tdap/Td Vaccines (2 - Td or Tdap) [facility] Start: 05-14-2028 Urine microalbumin profile [facility] Start: 11-16-2027 Diabetes Screening Diabetes Screenin [facility] Start: 12-14-2026 Diabetes Screening Diabetes Screenin [facility] Start: 08-17-2026 Diabetes Screening Diabetes Screenin [facility] Start: 06-02-2026 Diabetes Screening Diabetes Screenin [facility] Start: 01-27-2026 Diabetes Screening Diabetes Screenin [facility] Start: 2025 PNEUMOCOCCAL (3 - PPSV23 or PCV20) PNEUMOCOCCAL (3 - PPSV23 or PCV20) [facility] Start: 2025 Pneumococcal vaccination [facility] Start: 2025 Pneumococcal Vaccine : Pediatrics (0 to 5 Years) and At-Risk Patients (6 to 64 Years) (3 - PPSV23 or PCV20) Pneumococcal Vaccine: Pediatrics (0 to 5 Years) and At-Risk Patients (6 to 64 Years) (3 - PPSV23 or PCV20) [facility] Start: 2025 Pneumococcal Vaccine : Pediatrics (0 to 5 Years) and At-Risk Patients (6 to 64 Years) (3 of 3 - PPSV23 or PCV20) Pneumococcal Vaccine: Pediatrics (0 to 5 Years) and At-Risk Patients (6 to 64 Years) (3 of 3 - PPSV23 or PCV20) [facility] Start: 09-16-2025 DIABETES SCREEN DIABETES SCREEN [facility] Start: 06-27-2025 End: 06-27-2025 Patient encounter procedure 06/27/2025 1:45 PM EST Office Visit Radiation Oncology [address] [place] [address] [place] [address] Kathrine Carpenter MD [address] [place] [address] [place] [address] 6 month follow up Radiation Oncology Comment on above: 6 month follow up Start: 06-22-2025 End: 09-21-2025 TSH W/REFLEX FT4 TSH W/REFLEX FT4 Lab Routine Hypothyroidism due to acquired atrophy of thyroid Expected: 06/22/2025, Expires: 09/21/2025 [facility] Work Phone: Comment on above: Expected: 06/22/2025 , Expires: 09/21/2025 Start: 06-21-2025 BP Controlled (<130/80) BP Controlle d (<130/80) [facility] Start: 06-20-2025 End: 06-20-2025 Patient encounter procedure 06/20/2025 11:00 AM EST Office Visit [facility] [address] [facility] [place] [address] [facility] Comment on above: LAB Start: 05-20-2025 DIABETES SCREEN DIABETES SCREEN [facility] Start: 05-05-2025 End: 05-05-2025 Patient encounter procedure 05/05/2025 2:00 PM EST Office Visit [facility] [address] [facility] [address] [place] [phone] Carmen Neely MD [address] [facility] [address] [place] [address] [facility] Start: 04-18-2025 End: 04-18-2025 Patient encounter procedure 04/18/2025 10:00 AM EST Office Visit [facility] [address] [place] [address] Gildardo Lacy MD [address] [place] [address] [facility] Start: 04-12-2025 Medicare Annual Wellness (AWV) Medicare Annual Wellness (AWV) [facility] Start: 02-21-2025 End: 02-21-2025 Patient encounter procedure 02/21/2025 2:15 PM EDT Office Visit [facility] [address] [place] [phone] Jl Shepherd, DPM [address] [place] [address] [facility] Start: 02-15-2025 End: 02-15-2025 Patient encounter procedure 02/15/2025 3:00 PM EDT Office Visit [facility] [address] [place] [phone] Kaela Negrete, DO [address] [facility] [place] [address] [facility] Start: 01-16-2025 DIABETES SCREEN [facility]ETES SCREEN [facility] Start: 01-10-2025 End: 01-10-2025 Patient encounter procedure 01/10/2025 1:30 PM EDT Office Visit [facility] [address] [place] [phone] Jl Shepherd DPYadira [address] [place], [place] [phone] Arrived [facility] Comment on above: Arrived Start: 01-02-2025 COVID-19 Vaccine ( season) COVID-19 Vaccine () [facility] Start: 01-02-2025 Influenza vaccination [facility] Start: 12-21-2024 End: 12-21-2024 Patient encounter procedure [facility] Comment on above: Chronic obstructive pulmonary disease, unspecified COPD type (HCC); Chronic hypoxic respiratory failure (HCC) Start: 12-20-2024 End: 12-20-2024 Patient encounter procedure Radiation Oncology Comment on above: Followup Start: 11-07-2024 End: 11-07-2024 Professional / ancillary services management 11/07/2024 2:00 PM EDT Ancillary Procedure [facility] [address] [place] [phone] [facility] Start: 11-01-2024 Adult BMI Screening Adult BMI Screen ing [facility] Start: 11-01-2024 Tobacco Screening Tobacco Screening [facility] Start: 10-11-2024 End: 10-11-2024 Patient encounter procedure [facility] Comment on above: Arrived Start: 10-03-2024 DIABETES SCREEN DIABETES SCREEN [facility] Start: 09-24-2024 DIABETES SCREEN DI[facility]ETES SCREEN [facility] Start: 09-16-2024 DIABETES SCREEN DIABETES SCREEN [facility] Start: 09-15-2024 End: 09-15-2024 Patient encounter procedure 09/15/2024 1:45 PM EDT Office Visit [facility] [address] [place] [address] Gildardo Lacy MD [address] [place] [phone] [facility] Start: 09-12-2024 End: 09-12-2025 Lipid 1996 panel - Serum or Plasma Lipid Panel Lab Routine Hyperlipidemia, unspecified hyperlipidemia type Expected: 09/12/2024 (Approximate), Expires: 09/12/2025 [facility] Service Area Work Phone: Comment on above: Expected: 09/12/2024 (Approximate), Expires: 09/12/2025 Start: 09-09-2024 DIABETES SCREEN DIABETES SCREEN [facility] Start: 09-08-2024 End: 09-08-2024 [facility] Comment on above: Arrived Start: 09-05-2024 End: 09-05-2024 Telemedicine consultation with patient 09/05/2024 10:00 AM EDT Telemedicine [facility] Neurology, A Department of [address] [place] [phone] Mireya Moon MD [address] [place] [address] [address] [place] [phone] [facility] Neurology, A Department of [facility] Start: 09-02-2024 DIABETES SCREEN DIABETES SCREEN [facility] Start: 08-26-2024 DIABETES SCREEN DI[facility]ETES SCREEN [facility] Start: 08-19-2024 DIABETES SCREEN DI[facility]ETES [facility]CREEN [facility] Start: 08-12-2024 DIABETES SCREEN [facility]ETES [facility]CREEN [facility] Start: 08-03-2024 End: 08-03-2024 Patient encounter procedure 08/03/2024 10:00 AM EDT Office Visit [facility] [address] [place] [phone] Rashida Zarate NP [address] [place] [phone] Occlusion of left internal carotid artery (Primary Dx); Dyslipidemia (CMS/HCC); Cerebrovascular accident (CVA), unspecified mechanism (CMS/HCC) [facility] Comment on above: Occlusion of left in ternal carotid artery (Primary Dx); Dyslipidemia (CMS/HCC); Cerebrovascular accident (CVA), unspecified mechanism (CMS/HCC) Start: 06-28-2024 DIABETES SCREEN DIABETES SCREEN [facility] Start: 06-21-2024 End: 06-21-2024 Patient encounter procedure 06/21/2024 1:30 PM EST Office Visit Radiation Oncology [address] [facility] [place] [address] Kathrine Carpenter MD [address] [facility] [place] [address] Followup Radiation Oncology Comment on above: Followup Start: 06-10-2024 End: 06-10-2024 Patient encounter procedure Radiology Comment on above: XR SHOULDER GENERAL 3V OR MORE AP/TRUE AP/OTHER RIGHT Rt shoulder / arthra lgia Start: 06-09-2024 End: 06-09-2024 Patient encounter procedure 06/09/2024 10:20 AM EST Office Visit [facility] [address] [facility] [address] [place] [address] Carmen Neely MD [address] [place] [address] [facility] Start: 05-24-2024 End: 05-24-2024 Patient encounter procedure [...] 05-06-2024 End: 05-06-2024 Patient encounter procedure [facility] Comment on above: S/P arthroscopy of r ight shoulder (Primary Dx) Start: 05-04-2024 Medicare Advantage Annual Wellness Visit Medicare Advantage Annual Wellness Visit [facility] Start: 04-12-2024 End: 04-12-2025 XR Foot - [...] Visit [facility] Jr. Martin Chen, DO [address] [address] [facility] Start: 02-02-2024 End: 01-27-2025 ECG 12 lead ECG 12 lead ECG Routine Preop examination Expected: 02/02/2024 (Approximate), Expires: 01/27/2025 [facility] Work Phone: Comment on above: Expected: 02/02/2024 (Approximate), Expires: 01/27/2025 Start: 01-03-2024 COVID-19 Vaccine ( season) COVID-19 Vaccine () [facility] Start: 01-03-2024 COVID-19 Vaccine ( season) COVID-19 Vaccine ( season) [facility] Start: 01-03-2024 Covid-19 Vaccine ( season) Covid-19 Vaccine ( season) [facility] Start: 01-03-2024 Influenza vaccination Influenza Vacc ine (#1) [facility] Start: 12-28-2023 End: 12-28-2023 Patient encounter procedure 12/28/2023 2:00 PM EDT Office Visit [facility] [address] [place] [phone] Jr. Martin Chen C, DO [address] [facility] [address] [place] [address] Arrived [facility] Comment on above: Arrived Start: 12-22-2023 End: 12-22-2023 Follow-up encounter 12/22/2023 3:15 PM EDT Visit (SP) Office Hematology/Oncology [address] [facility] [place] [address] Esdras Cash MD [address] [facility] [place] [address] 18 week follow up for pet scan results Hematology/Oncology Comment on above: 18 week follow up fo r pet scan results Start: 12-22-2023 End: 12-22-2023 Patient encounter procedure 12/22/2023 2:45 PM EDT Office Visit Radiation Oncology [address] [place] [address] [place] [address] Kathrine Carpenter MD [address] [facility] [place] [address] Followup Radiation Oncology Comment on above: Followup Start: 12-18-2023 End: 03-18-2024 CBC W Auto Differential panel - Blood COMPLETE BLOOD COUNT AND DIFFERENTIAL Lab Routine Cancer of base of tongue (HCC) Malaise and fatigue Expected: 12/18/2023 (Approximate), Expires: 03/18/2024 [facility] Work Phone: Comment on above: Expected: 12/18/2023 (Approximate), Expires: 03/18/2024 Start: 12-18-2023 End: 03-18-2024 Comprehensive metabolic 2000 panel - Serum or Plasma COMPREHENSIVE METABOLIC PANEL Lab Routine Cancer of base of tongue (HCC) Malaise and fatigue Expected: 12/18/2023 (Approximate), Expires: 03/18/2024 [facility] Work Phone: Comment on above: Expected: 12/18/2023 (Approximate), Expires: 03/18/2024 Start: 12-18-2023 End: 03-18-2024 Thyrotropin [Units/volume] in Serum or Plasma THYROID STIMULATING HORMONE Lab Routine Cancer of base of tongue (HCC) Malaise and fatigue Expected: 12/18/2023 (Approximate), Expires: 03/18/2024 [facility] Work Phone: Comment on above: Expected: 12/18/2023 (Approximate), Expires: 03/18/2024 Start: 12-15-2023 End: 12-15-2023 Patient encounter procedure 12/15/2023 9:00 AM EDT Appointment Radiology Pet CT [address] [place] [address] [place] [address] Comment on above: Pet scan Start: 11-17-2023 End: 11-17-2023 Patient encounter procedure 11/17/2023 10:20 AM EDT Office Visit [facility] [address] [facility] [address] [place] [phone] Carmen Neely MD [address] [facility] [address] [place] [address] [facility] Start: 09-17-2023 BP CONTROLLED (<130/80) BP CONTROLLE D (<130/80) [facility] Start: 09-11-2023 Influenza vaccination LUNG CANCER SC REENING [facility] Start: 09-11-2023 Screening for malign ant neoplasm of lung Lung Cancer Screening [facility] Start: 07-17-2023 BP CONTROLLED (<130/80) BP CONTROLLE D (<130/80) [facility] Start: 05-20-2023 BP CONTROLLED (<130/80) BP CONTROLLE D (<130/80) [facility] Start: 05-06-2023 End: 05-06-2024 Lipid 1996 panel - Serum or Plasma Lipid Panel Lab Routine Hyperlipidemia, unspecified hyperlipidemia type Expected: 05/06/2023 (Approximate), Expires: 05/06/2024 [facility] Service Area Work Phone: Comment on above: Expected: 05/06/2023 (Approximate), Expires: 05/06/2024 Start: 04-17-2023 BP CONTROLLED (<130/80) BP CONTROLLE D (<130/80) [facility] Start: 04-14-2023 Influenza vaccination LUNG CANCER SC [facility] Start: 04-04-2023 Screening for malign ant neoplasm of colon Colonoscopy [facility] Start: 02-25-2023 BP CONTROLLED (<130/80) BP CONTROLLE D (<130/80) [facility] Start: 02-18-2023 BP CONTROLLED (<130/80) BP CONTROLLE D (<130/80) [facility] Start: 01-31-2023 Pneumococcal vaccination Pneumococcal Vaccine (3 of 3 - PCV20 or PCV21) [facility] Start: 01-31-2023 Pneumococcal Vaccine : 50+ (3 of 3 - PCV20 or PCV21) Pneumococcal Vaccine: 50+ (3 of 3 - PCV20 or PCV21) [facility] Start: 01-02-2023 Covid-19 Vaccine ( season) Covid-19 Vaccine ( season) [facility] Start: 01-02-2023 Influenza vaccination C [facility] Start: 12-26-2022 BP CONTROLLED (<130/80) BP CONTROLLE D (<130/80) [facility] Start: 12-02-2022 EPV, Provider: Carmen Neely, Status: Pen, Time: 10:20 AM EPV, Provider: Carmen Neely, Status: Pen, Time: 10:20 AM -[facility] [address] DO Work Phone: Start: 11-21-2022 BP CONTROLLED (<130/80) BP CONTROLLE D (<130/80) [facility] Start: 10-09-2022 BP CONTROLLED (<130/80) BP CONTROLLE D (<130/80) [facility] Start: 10-03-2022 BP CONTROLLED (<130/80) BP CONTROLLE D (<130/80) [facility] Start: 09-23-2022 BP CONTROLLED (<130/80) BP CONTROLLE D (<130/80) [facility] Start: 09-16-2022 BP CONTROLLED (<130/80) BP CONTROLLE D (<130/80) [facility] Start: 09-09-2022 BP CONTROLLED (<130/80) BP CONTROLLE D (<130/80) [facility] Start: 09-02-2022 BP CONTROLLED (<130/80) BP CONTROLLE D (<130/80) [facility] Start: 08-12-2022 BP CONTROLLED (<130/80) BP CONTROLLE D (<130/80) [facility] Start: 08-12-2022 End: 10-12-2022 CREATININE BLD CREATININE BLD Lab Routine Oropharnyx cancer (HCC) Expected: 08/12/2022, Expires: 10/12/2022 [facility] Work Phone: Comment on above: Expected: 08/12/2022 , Expires: 10/12/2022 Start: 08-07-2022 COVID-19 Vaccine (4 - Pfizer series) COVID-19 Vaccine (4 - Pfizer series) [facility] Start: 08-01-2022 BP CONTROLLED (<130/80) BP CONTROLLE D (<130/80) [facility] Start: 07-30-2022 BP CONTROLLED (<130/80) BP CONTROLLE D (<130/80) [facility] Start: 07-16-2022 End: 09-15-2022 Thyrotropin [Units/volume] in Serum or Plasma TSH BLD Lab Routine Cancer of base of tongue (HCC) Expected: 07/16/2022, Expires: 09/15/2022 [facility] Work Phone: Comment on above: Expected: 07/16/2022 , Expires: 09/15/2022 Start: 07-16-2022 End: 09-15-2022 Thyroxine (T4) [Mass/volume] in Serum or Plasma T4/THYROXINE BLOOD Lab Routine Cancer of base of tongue (HCC) Expected: 07/16/2022, Expires: 09/15/2022 [facility] Work Phone: Comment on above: Expected: 07/16/2022 , Expires: 09/15/2022 Start: 06-20-2022 Influenza vaccination LUNG CANCER SC [facility]I [facility] Start: 06-10-2022 FUV, Provider: Carmen Neely, Status: Pen, Time: 10:20 AM FUV, Provider: Carmen Neely, Status: Pen, Time: 10:20 AM [employer] 250 DO Work Phone: Start: 04-25-2022 End: 06-25-2022 CREATININE BLD CREATININE BLD Lab Routine Oropharnyx cancer (HCC) Expected: 04/25/2022 (Approximate), Expires: 06/25/2022 [facility] Work Phone: Comment on above: Expected: 04/25/2022 (Approximate), Expires: 06/25/2022 Start: 04-06-2022 PNEUMOCOCCAL (3 - PPSV23 if available, else PCV20) PNEUMOCOCCAL (3 - PPSV23 if available, else PCV20) [facility] Start: 04-06-2022 PNEUMOCOCCAL (3 - PPSV23 or PCV20) PNEUMOCOCCAL (3 - PPSV23 or PCV20) [facility] Start: 01-13-2022 STRESS NUC, Provider : KELSEY GUERREROI NUCLEAR 01,[id number], Status: Pen, Time: 12:00 PM STRESS NUC, Provider: KELSEY HHVI NUCLEAR 01,[id number], Status: Pen, Time: 12:00 PM [employer] 250 DO Work Phone: Start: 01-13-2022 ECHO, Provider: KELSEY GUERREROI ULTRASOUND 01,[id number], Status: Pen, Time: 10:45 AM ECHO, Provider: KELSEY GUERREROI ULTRASOUND 01,[id number], Status: Pen, Time: 10:45 AM [employer] 250 DO Work Phone: Start: 01-03-2022 End: 03-05-2022 CBC W Auto Differential panel - Blood CBC + DIFF Lab Routine Malaise and fatigue Oropharnyx cancer (HCC) Expected: 01/03/2022, Expires: 03/05/2022 [facility] Work Phone: Comment on above: Expected: 01/03/2022 , Expires: 03/05/2022 Start: 01-03-2022 End: 03-05-2022 Comprehensive metabolic 2000 panel - Serum or Plasma COMP METABOLIC PANEL Lab Routine Malaise and fatigue Oropharnyx cancer (HCC) Expected: 01/03/2022, Expires: 03/05/2022 [facility] Work Phone: Comment on above: Expected: 01/03/2022 , Expires: 03/05/2022 Start: 01-03-2022 End: 03-05-2022 T4/FTI/T4U T4/FTI/T4U Lab Routine Malaise and fatigue Oropharnyx cancer (HCC) Expected: 01/03/2022, Expires: 03/05/2022 [facility] Work Phone: Comment on above: Expected: 01/03/2022 , Expires: 03/05/2022 Start: 01-03-2022 End: 03-05-2022 Thyrotropin [Units/volume] in Serum or Plasma TSH BLD Lab Routine Malaise and fatigue Oropharnyx cancer (HCC) Expected: 01/03/2022, Expires: 03/05/2022 [facility] Work Phone: Comment on above: Expected: 01/03/2022 , Expires: 03/05/2022 Start: 01-02-2022 Influenza vaccination INFLUENZA (#1) [facility] Start: 12-26-2021 End: 02-25-2022 Thyrotropin [Units/volume] in Serum or Plasma TSH BLD Lab Routine Oropharnyx cancer (HCC) Expected: 12/26/2021, Expires: 02/25/2022 [facility] Work Phone: Comment on above: Expected: 12/26/2021 , Expires: 02/25/2022 Start: 12-26-2021 End: 02-25-2022 Thyroxine (T4) [Mass/volume] in Serum or Plasma T4/THYROXINE BLOOD Lab Routine Oropharnyx cancer (HCC) Expected: 12/26/2021, Expires: 02/25/2022 [facility] Work Phone: Comment on above: Expected: 12/26/2021 , Expires: 02/25/2022 Start: 12-22-2021 End: 12-21-2022 NM PET/CT SKULL-THIGH SUBSEQUENT NM PET/CT SKULL-THIGH SUBSEQUENT Radiology Routine Oropharnyx cancer (HCC) Expected: 12/22/2021, Expires: 12/21/2022 [facility] Work Phone: Comment on above: Expected: 12/22/2021 , Expires: 12/21/2022 Start: 09-24-2021 End: 11-24-2021 Basic metabolic 2000 panel - Serum or Plasma BASIC METABOLIC PNL Lab Routine Oropharnyx cancer (HCC) Expected: 09/24/2021, Expires: 11/24/2021 [facility] Work Phone: Comment on above: Expected: 09/24/2021 , Expires: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 alert. Psychiatric: Mood and Affect: Mood normal. Behavior: Behavior normal. Thought Content: Thought content normal. Judgment: Judgment normal. ASSESSMENT AND PLAN: No follow-ups on file. Problem List Items Addressed This Visit Occlusion of left internal carotid artery - Primary Follows with vascular Does take asa, statin, Essential hypertension (CMS/HCC) Please check blood pressure daily and record DASH diet Limit caffeine Take medication as directed Contact office if chest pain, pressure, dizziness, shortness of breath, swelling legs Recommend slow position changes Current meds: metoprolol Dyslipidemia (CMS/HCC) Is on statin therapy Check labs yearly and prn dose changes Follow heart healthy diet Stroke (CMS/HCC) Reviewed [employer] stroke notes: multifocal infarct, Right BONY territory, recommend plavix 3 months (This would be up to and including 10/25/24) Fu in [facility] in 4 weeks and keep appts with Neurology Associated Problem(s): Stroke (CMS/HCC) Reviewed [employer] health stroke notes: multifocal infarct, Right BONY territory, recommend plavix 3 months (This would be up to and including 10/25/24) Fu in [facility] in 4 weeks and keep appts with Neurology Associated Problem(s): Dyslipidemia (CMS/HCC) Is on statin therapy Check labs yearly and prn dose changes Follow heart healthy diet Associated Problem(s): Occlusion of left internal carotid artery Follows with vascular Does take asa, statin, Associated Problem(s): Essential hypertension (CMS/HCC) Please check blood pressure daily and record DASH diet Limit caffeine Take medication as directed Contact office if chest pain, pressure, dizziness, shortness of breath, swelling legs Recommend slow position changes Current meds: metoprolol documented in this encounter [facility] 08-03-2024 Instructions Rashida Zarate NP - 08/03/2024 10:00 AM EDT No med dose changes documented in this encounter [facility] 07-26-2024 Miscellaneous Notes What is the reason for the call? [facility] called to schedule appt in STROKE unit. If appointment requested, what is the reason for the appointment? STROKE Is there a referral in the chart? No Were they seen in the hospital? Yes What hospital were they seen at? [facility] What is a good call back number? Call patient back: [phone] Avis already sent a request for FU on this patient. She advised FU in [place]. Scheduled tele-visit as it looks like [place] is fully booked. documented in this encounter [facility] 07-26-2024 Telephone encounter Note What is the reason for the call? [facility] called to schedule appt in STROKE unit. If appointment requested, what is the reason for the appointment? STROKE Is there a referral in the chart? No Were they seen in the hospital? Yes What hospital were they seen at? [facility] What is a good call back number? Call patient back: [phone] [facility] 07-26-2024 Telephone encounter Note Avis already sent a request for FU on this patient. She advised FU in [place]. [facility] Work Phone: 07-26-2024 Telephone encounter Note Scheduled tele-visit as it looks like [place] is fully booked. 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 Doing fairly well. No evidence of recurrence. Stable right neck soft tissue changes from prior radiation treatment/retreatment. Continue conservative care. Plan to see patient back in 6 months. Signed by: Kathrine Carpenter MD cc: Gildardo Lacy MD ([facility]) [address] [place] [address] Dr. Bagley documented in this encounter [facility] 06-21-2024 Note HNO ID: [id number] Author: Kathrine CARPENTER MD Service: ? 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 [facility] 06-10-2024 History of Present illness Narrative SHOULDER/ELBOW INITIAL CONSULT SERVICE DATE: 06/09/2024 PCP: Gildardo Lacy MD REFERRING PROVIDER: EMILIE Spicer [address] [facility] [address] [facility] [address] Consult requested for an opinion regarding the evaluation and treatment of the above. My final impression and recommendations will be communicated back to the requesting physician by way of the shared medical record or letter via [place] mail. CHIEF COMPLAINT: Right shoulder pain SUBJECTIVE HISTORY OF PRESENT ILLNESS: 63 year old male, who presents for the above CC. Patient is a [id number] 63-year-old male with past medical history of [...] without relief. Has been taking Tylenol and ybbs-ong-ivktzat medications. Pain is improved when he is [...] Hypertension, Benign Tachycardia Pvd (Peripheral Vascular Disease) ([facility]) Peripheral Neuropathy History of Transient Ischemic Attack (Tia) Copd (Chronic Obstructive Pulmonary Disease) ([facility]) Current Smoker Gerd (Gastroesophageal Reflux Disease) Prediabetes [...] Hebert Miguel MD documented in this encounter [facility] 06-10-2024 Note HNO ID: [id number] Author: HEBERT MIGUEL MD Service: ? Author Type: Physician Type: Progress Notes Filed: 06/10/2024 17:06 Note Text: SHOULDER/ELBOW INITIAL CONSULT SERVICE DATE: 06/09/2024 PCP: Gildardo Lacy MD REFERRING PROVIDER: EMILIE Spicer [address] [facility] [address] [facility] [address] Consult requested for an opinion regarding the evaluation and treatment of the above. My final impression and recommendations will be communicated back to the requesting physician by way of the shared medical record or letter via US mail. CHIEF COMPLAINT: Right shoulder pain SUBJECTIVE HISTORY OF PRESENT ILLNESS: 63 year old male, who presents for the above CC. Patient is a bxtmz-ndky-evtrmrfh 63-year-old male with past medical history of [...] without relief. Has been taking Tylenol and mexq-qfj-zrmpwyw medications. Pain is improved when he is [...] instructed as neede (more content not included)... [facility] 06-10-2024 History of Present illness Narrative Radiology [...] PATIENT PRESENTS WITH AN IMPLANTABLE OR ATTACHED VP SITE: No RADIOLOGY DEPARTMENT: General X-ray: Exam(s) Completed: Upper Extremity X-Ray(s): Shoulder, AP / TRUE AP / VELPEAU right PERIPHERAL IV DATA: Not applicable SIGNED BY: RT Luis(Phil) June 10, 2024 2:42 PM documented in this encounter [facility] 06-10-2024 Note HNO ID: [id number] Author: TAYLER VICK RT(R) Service: Radiology Author Type: Technologist Type: [...] PATIENT PRESENTS WITH AN IMPLANTABLE OR ATTACHED VP SITE: No RADIOLOGY DEPARTMENT: General X-ray: Exam(s) Completed: Upper Extremity X-Ray(s): Shoulder, AP / TRUE AP / VELPEAU right PERIPHERAL IV DATA: Not applicable SIGNED BY: Tayler Vick, RT(R) June 10, 2024 2:42 PM [facility] 06-01-2024 History of Present illness Narrative Associated [...] around the house. documented in this encounter [facility] 05-26-2024 Telephone encounter Note [facility] 05-26-2024 Miscellaneous Notes documented in this encounter [facility] 05-24-2024 History of Present illness Narrative Images from the original note were not included. HISTORY OF PRESENT ILLNESS: POST OP PT Alejo Floyd is an 63 y.o. @ male. (EST PT) S/P (R) SHOULDER SCOPE 02/09/24 (3 [facility]THS 2 WKS) P/O MRI [facility] 05/20/24 PT [facility]-ON HOLD FLARE UP OF PAIN EARLY 04/2024. DENIES INJURY. CONSTANT PAIN ANTERIOR SHOULDER AND AROUND SCAPULA. PAIN / TODAY, GOES HIGHER THE DAY GOES ON. [...] MR shoulder [place] [address] Magnetic Resonance Report Signed Patient: ALEJO FLOYD MR#: [id number] : 1960 Acct:[id number] Age/Sex: 63 / M ADM Date: 05/20/24 Loc: MRI Attending Dr: Cassie PHAN Ordering Physician: Cassie Hood Date of Service: 05/20/24 Procedure(s): MR shoulder RT wo con Accession Number(s): [id number] cc: Cassie Hood; Gildardo Lacy M.D. [address] [place] [address] Patient Name: ALEJO FLOYD MRN: [id number] date: 1960 Sex: M Assigned Patient Location: MRI Current Patient Location: MRI Accession/Order Number: [id number] Exam Date: 05/20/2024 09:45 Report Date: 05/20/2024 [...] Signed By: 05/20/24 1501 DD/ 1459 TD/TT: Sand Conditioner: Procedures Orders Placed This Encounter Procedures Ambulatory [...] rotator cuff, and an MRI performed at [place] confirms retraction and tear. The case was discussed with Dr. Wade regarding surgical and nonsurgical treatment. He is in moderate to significant pain daily with his shoulder, and Dr. Wade is recommending evaluation by a shoulder specialist for potential reverse total shoulder. He is agreeable with referral and prefers [facility] as he has had cancer treatment through [...] A referral will be placed to the [facility] for further evaluation and treatment. His MRI at the [facility] has been pushed to the PACS system for [facility]. PROCEDURE The patient underwent right shoulder arthroscopy with repair of the rotator cuff. Questions answered in laymen terms at the bedside. The diagnosis, home exercise plan and any ongoing restrictions/ recommendations reviewed. If unable to be reached in office, I recommend evaluation at nearest Emergency Room if any symptoms worsened or new symptoms develop for requiring urgent evaluation. documented in this encounter [facility] 05-12-2024 Telephone encounter Note Left msg for Cheryle stating that the order is for [facility]. Our referral dept did precert for [facility] for some reason. I told Cheryle she will have to just call the insurance company and have them change the Facility. She will call back if any additional info is needed [facility] 05-12-2024 Miscellaneous Notes Left msg for Cheryle stating that the order is for [facility]. Our referral dept did precert for [facility] for some reason. I told Cheryle she will have to just call the insurance company and have them change the Facility. She will call back if any additional info is needed Cheryle at [facility] left vm returning call from Maggi. She stated that we need to change the order to [facility] instead of [facility]. Please call Cheryle back at [phone] ext [phone]. documented in this encounter [facility] 05-12-2024 Telephone encounter Note Cheryle at [facility] left vm returning call from Maggi. She stated that we need to change the order to [facility] instead of [facility]. Please call Cheryle back at [phone] ext [phone]. [facility] 05-06-2024 History of Present illness Narrative Images [...] THERAPY DONE 2 TIMES A WEEK IN [place]. DENIES SWELLING. DENIES N/T. PT IS TAKING [...] requiring urgent evaluation. documented in this encounter [facility] 04-21-2024 Telephone encounter Note [facility] 04-21-2024 Miscellaneous Notes documented in this encounter [facility] 04-12-2024 History of Present illness Narrative Associated [...] 2 views left documented in this encounter [facility] 04-04-2024 Telephone encounter Note The following approved medication requests have been transmitted electronically. Requested Prescriptions Signed Prescriptions Disp Refills megestrol (MEGACE) 400 mg/10 mL (40 mg/mL) suspension 480 mL 1 Sig: take 20 milliliters by mouth once daily Authorizing Provider: NATHALY BIGGS APRN.CNP [facility] 04-04-2024 Miscellaneous Notes The following approved medication requests have been transmitted electronically. Requested Prescriptions Signed Prescriptions Disp Refills megestrol (MEGACE) 400 mg/10 mL (40 mg/mL) suspension 480 mL 1 Sig: take 20 milliliters by mouth once daily Authorizing Provider: NATHALY BIGGS APRN.CNP documented in this encounter [facility] 03-23-2024 History of Present illness Narrative Images [...] TO WEAR ULTRAS SLING- PERCOCET PER DR LACY HX (R) SHOULDER SCOPE 06/27/22 - DR CHEN [...] A note was given to take to [facility] to increase his range of motion [...] requiring urgent evaluation. documented in this encounter [facility] 02-29-2024 History of Present illness Narrative Associated Problem(s): COPD (chronic obstructive pulmonary disease) ([facility]) Recent exacerbation but improved. Resume breo and use albuterol PRN. Images from the original note were not included. Subjective Patient ID: Alejo Floyd is a 63 y.o. male who presents for Follow-up (Er f/u). ER follow up from 02/17 for COPD exacerbation. Developed severe SOB and chest tightness. Ralph like not able to take deep breath [...] This Visit COPD (chronic obstructive pulmonary disease) ([facility]) - Primary Recent exacerbation but improved. Resume breo and use albuterol PRN. Relevant Medications Fluticasone Furoate-Vilanterol (Breo Ellipta) 100-25 MCG/ACT aerosol powder albuterol (2.5 MG/3ML) 0.083% nebulizer solution Other Visit Diagnoses Need for immunization against influenza Relevant Orders Flu vaccine greater than or equal to 3 years old, preservative free IM (Completed) documented in this encounter [facility] 02-23-2024 History of Present illness Narrative Images [...] pt would like to do therapy at [facility]... therapy order given.. pt verbalized he [...] requiring urgent evaluation. documented in this encounter [facility] 02-23-2024 Instructions EMILIE Spicer - 02/23/2024 11:00 [...] soon as possible documented in this encounter [facility] 02-08-2024 Telephone encounter Note Post op pain rx. PDMP reviewed [facility] Work Phone: 02-08-2024 Miscellaneous Notes Post op pain rx. PDMP reviewed documented in this encounter [facility] 02-02-2024 History of Present illness Narrative Images [...] SX INSTRUCTIONS GIVEN TODAY 02/01 @9:30AM - [place] DR. LACY CLEARANCE ; OBTAINED ULTRASLING GIVEN TODAY ARTHREX NOTIFIED PA APPROVED ([id number]) Patient presents today for fitting of right [...] Follow up for 02/22 @11AM W/DEMETRIO IN [place]. documented in this encounter [facility] 01-14-2024 Telephone encounter Note LEFT VM WITH DR. LACY'S OFFICE WE NEED CLEARANCE PRIOR TO SCHEDULING. CALLED PATIENT AND INFORMED HIM. HE IS UNDERSTANDING THAT ONCE WE OBTAIN CLEARANCE I WILL CALL TO SCHEDULE SX. [facility] 01-14-2024 Miscellaneous Notes LEFT VM WITH DR. LACY'S OFFICE WE NEED CLEARANCE PRIOR TO SCHEDULING. CALLED PATIENT AND INFORMED HIM. HE IS UNDERSTANDING THAT ONCE WE OBTAIN CLEARANCE I WILL CALL TO SCHEDULE SX. Patient called regarding a scheduling surgery? documented in this encounter [facility] 01-11-2024 Telephone encounter Note Patient called regarding a scheduling surgery? [facility] 12-28-2023 History of Present illness Narrative Images from the original note were not included. HISTORY OF PRESENT ILLNESS: EST PT Alejo Floyd is an 63 y.o. @ male. EST PT RECHECK RT SHOULDER- HERE FOR MRI RT SHOULDER RESULTS [facility] 12/22/23 XRAY RT SHOULDER EPIC 11/02/23 MRI RT SHOULDER 12/22/23 [facility] S/P (R) SHOULDER SCOPE 06/27/22 - DR CHEN S/P RT SHOULDER [place] 11/28/22- DR CHEN CORTISONE INJ 11/02/23 S/P [facility] 10/27/22 S/P PHYSICAL THERAPY [facility] PREVIOUS PHYSICAL THERAPY @ [facility] ; S/P SCOPE CONTINUES TO HAVE [...] I am acting as scribe for Dr. Chne/pankaj, PLAN: We have reviewed prior (R) shoulder [...] Martin Chen D.O. 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 Bagley documented in this encounter [facility] 12-21-2023 History of Present illness Narrative PATIENT [...] No date: COPD (chronic obstructive pulmonary disease) ([facility]) No date: Depression No date: Other emphysema ([facility]) No date: Smoking greater than 40 pack [...] for carcinoma. 07/17/2020 Base of tongue biopsy ([facility]) Invasive squamous cell carcinoma HPV negative LABS: [...] FDG avid osseous lesion. 2021 CT abdomen/pelvis ([facility]) Distal small bowel obstruction with fluid-filled dilatation [...] FDG avid neoplastic process.. 07/13/2020 Chest x-ray ([facility]) No acute disease 07/09/2020 CT neck ([facility]) 3.6 x 3.4 x 2.6 cm infiltrative [...] cell carcinoma. The patient was referred to [facility] (Dr. Olivarez), and subsequently underwent a [...] Esdras Cash MD documented in this encounter [facility] 12-15-2023 History of Present illness Narrative Radiology [...] 919 PATIENT DISCHARGED TO: Ambulatory patient, left [place] department area. A Diagnostic radioactive procedure has taken place, with no further precautions necessary other than routine body substance precautions. More information regarding radiation safety can be found using this link: [email or web address] SIGNATURE: RT Jose Alfredo(R) PATIENT NAME: Alejo Floyd DATE: December 15, 2023 TIME: 9:33 AM PAGER/CONTACT #: documented in this encounter [facility] 11-17-2023 History of Present illness Narrative Subjective [...] Rfl: Assessment/Plan 1. PVD (peripheral vascular disease) ([facility]) Follow Up In Cardiology 2. Hyperlipidemia, unspecified hyperlipidemia type 3. TIA (transient ischemic attack) 4. BMI less than 19,adult 5. Current smoker Scribe Attestation By signing my name below, I, Luana Beaver attest that this documentation has been prepared [...] discussion and plan. documented in this encounter [facility] Work Phone: 11-17-2023 Instructions Sweetie Hidalgo [...] to the patient. 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 No evidence of recurrence. Stable postradiation soft tissue effects. Continue conservative management including Aquaphor for the skin irritation. Otherwise plan for continued close follow-up and surveillance. Signed by: Kathrine Carpenter MD cc: Gildardo Lacy MD ([facility]) [address] [place] [address] Dr. Bagley documented in this encounter [facility] 08-17-2023 History of Present illness Narrative PATIENT [...] for carcinoma. 07/17/2020 Base of tongue biopsy ([facility]) Invasive squamous cell carcinoma HPV negative LABS: [...] FDG avid osseous lesion. 2021 CT abdomen/pelvis ([facility]) Distal small bowel obstruction with fluid-filled dilatation [...] FDG avid neoplastic process.. 07/13/2020 Chest x-ray ([facility]) No acute disease 07/09/2020 CT neck ([facility]) 3.6 x 3.4 x 2.6 cm infiltrative [...] cell carcinoma. The patient was referred to [facility] (Dr. Olivarez), and subsequently underwent a [...] Esdras Cash MD documented in this encounter [facility] 06-19-2023 Miscellaneous Notes The following approved medication requests have been transmitted electronically. Requested Prescriptions Signed Prescriptions Disp Refills megestrol (MEGACE) 400 mg/10 mL (40 mg/mL) suspension 480 mL 1 Sig: take 20 milliliters by mouth once daily Authorizing Provider: NATHALY BIGGS APRN.ACCOUNT COORDINATOR documented in this encounter [facility] 05-06-2023 History of Present illness Narrative Subjective [...] my name below, Arlette Negron LPN , [employer] attest that this documentation has been prepared under the direction and in the presence of Carmen Neely MD. documented in this encounter [facility] Work Phone: 05-06-2023 Instructions Eve Lee [...] of your visit. documented in this encounter [facility] Work Phone: 02-13-2023 Miscellaneous Notes Patient [...] If in agreement please refer to our workers compensation legal secretary. I will see him back as scheduled. documented in this encounter [facility] 02-11-2023 History of Present illness Narrative RADIOLOGY [...] 1250 PATIENT DISCHARGED TO: Ambulatory patient, left [place] department area. A Diagnostic radioactive procedure has taken place, with no further precautions necessary other than routine body substance precautions. 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 Patient with recent weight loss, no obvious cause. Imaging with PET ordered. No clinical evidence of progression. Plan to see patient back after imaging. Signed by: Kathrine Carpenter MD cc: Gildardo Lacy MD (Dr) [address] [place] [address] Dr. Bagley documented in this encounter [facility] 09-10-2022 History of Present illness Narrative Radiology [...] mg/dl, Calculated GFR >60, Date 08/30/2022 @ [facility] (scanned in) TREATMENT: No Hydration needed. IV [...] 2022 8:39 AM documented in this encounter [facility] 08-12-2022 Miscellaneous Notes Please sign pended CRE for CT. Thank you, Farida documented in this encounter [facility] 05-20-2022 History of Present illness Narrative PATIENT [...] for carcinoma. 07/17/2020 Base of tongue biopsy ([facility]) Invasive squamous cell carcinoma HPV negative LABS: [...] FDG avid osseous lesion. 2021 CT abdomen/pelvis ([facility]) Distal small bowel obstruction with fluid-filled dilatation [...] FDG avid neoplastic process.. 07/13/2020 Chest x-ray ([facility]) No acute disease 07/09/2020 CT neck ([facility]) 3.6 x 3.4 x 2.6 cm infiltrative [...] cell carcinoma. The patient was referred to [facility] (Dr. Olivarez), and subsequently underwent a [...] pain. He subsequently was seen at the [place] emergency room on 2021 and transferred to [facility] for suspected small bowel obstruction secondary to an abdominal wall hernia. His acute symptoms resolved with IVF and bowel rest. The patient is aware that his symptoms may recur, in which case surgery may be indicated. Continue management per PCP. 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 Overall doing well. Radiographically and clinically without evidence of recurrence. Plan for follow-up in 3 months. Signed by: Kathrine Carpenter MD cc: Gildardo Lacy MD ([facility]) [address] [place] [address] Dr. 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 Patient doing well. No evidence of clinical recurrence. Recommend follow-up in 3 to 3 months, recommend CT neck and chest at that time. Signed by: Kathrine Carpenter MD cc: Gildardo Lacy MD ([facility]) [id number] Bagley documented in this encounter [facility] 02-18-2022 Nurse Note Patient Identification confirmed: yes. Injection given and documented on JUL per provider order. Alejo Griffiths documented in this encounter [facility] 02-18-2022 History of Present illness Narrative PATIENT [...] for carcinoma. 07/17/2020 Base of tongue biopsy ([facility]) Invasive squamous cell carcinoma HPV negative LABS: [...] FDG avid osseous lesion. 2021 CT abdomen/pelvis ([facility]) Distal small bowel obstruction with fluid-filled dilatation [...] FDG avid neoplastic process.. 07/13/2020 Chest x-ray ([facility]) No acute disease 07/09/2020 CT neck ([facility]) 3.6 x 3.4 x 2.6 cm infiltrative [...] cell carcinoma. The patient was referred to [facility] (Dr. Olivarez), and subsequently underwent a [...] pain. He subsequently was seen at the [place] emergency room on 2021 and transferred to [facility] for suspected small bowel obstruction secondary to an abdominal wall hernia. His acute symptoms resolved with IVF and bowel rest. The patient is aware that his symptoms may recur, in which case surgery may be indicated. Continue management per PCP. 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 Bagley documented in this encounter [facility] 12-23-2021 History of Present illness Narrative RADIOLOGY [...] 901 PATIENT DISCHARGED TO: Ambulatory patient, left [place] department area. A Diagnostic radioactive procedure has taken place, with no further precautions necessary other than routine body substance precautions. 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 Nathaly will you please address this encounter as Dr. Carpenter and Dr. Cash are both on vacation this week. Please advise. 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 Patient continues to well without clinical evidence of recurrence. He has some soft tissue changes related to radiation treatments but these are stable. Recommend further follow-up with PET scan in 4 weeks. Signed by: Kathrine Carpenter MD cc: Gildardo Lacy MD (Dr) [address] [place] [address] Dr. Bagley documented in this encounter [facility] 10-16-2021 Note MR#: [id number] I [facility] Pt. Name: Alejo Floyd Admitted: 09/19/2021 Discharged: 09/20/2021 Date of : 1960 Physician: Zarina Morgan M.D. DISCHARGE SUMMARY ADMISSION DIAGNOSIS: Small bowel obstruction. DISCHARGE DIAGNOSIS: Small-bowel obstruction, resolving. No consults. No procedures. HISTORY OF PRESENT ILLNESS: 61-year-old male presenting to [facility] as direct admission. The patient [...] the day of the encounter, performed the womcak portion(s) of the service and participated in the management and confirm the resident's documentation. Please note there may be an additional personal documentation from me. Date Dict: 10/15/2021/05:05 P/Hood Sepulveda PA-C Date Trans: 10/16/2021 07:27 Carrie/radha PINEDO_JN:[id number] cc: Gildardo Lacy M.D. [address] [facility] [id number] [facility] 10-04-2021 History of Present illness Narrative [...] Dosing Weight: 75.4 kg Estimated kilocalorie needs: 3430-8499 kilocalories determined by 25-30 kcal/kg Estimated protein needs: 75-90 grams determined by 1.0-1.2 g/kg Dosing weight Estimated fluid needs: ~1719-7611 milliliters based on 1 mL per kcal [...] MS, RDN, LD documented in this encounter [facility] 10-03-2021 Nurse Note Patient would like something for his diarrhea. Myesha Garcia MA documented in this encounter [facility] 10-03-2021 History of Present illness Narrative PATIENT [...] for carcinoma. 07/17/2020 Base of tongue biopsy ([facility]) Invasive squamous cell carcinoma HPV negative LABS: Hemoglobin (g/dL) Date Value 10/03/2021 10.6 06/28/2021 12.9 Hematocrit (%) Date Value 10/03/2021 32.9 06/28/2021 40.1 WBC (k/uL) Date Value 10/03/2021 4.96 06/28/2021 15.52 Platelet Count (k/uL) Date Value 10/03/2021 159 06/28/2021 398 RADIOLOGY/OTHER STUDIES: 2021 CT abdomen/pelvis ([facility]) Distal small bowel obstruction with fluid-filled dilatation [...] FDG avid neoplastic process.. 07/13/2020 Chest x-ray ([facility]) No acute disease 07/09/2020 CT neck ([facility]) 3.6 x 3.4 x 2.6 cm infiltrative [...] cell carcinoma. The patient was referred to [facility] (Dr. Olivarez), and subsequently underwent a [...] pain. He subsequently was seen at the [place] emergency room on 2021 and transferred to [facility] for suspected small bowel obstruction secondary to an abdominal wall hernia. His acute symptoms resolved with IVF and bowel rest. The patient is aware that his symptoms may recur, in which case surgery may be indicated. Continue management per PCP. Esdras Cash MD CC: Dr. 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 Olivarez documented in this encounter [facility] 09-25-2021 History of Present illness Narrative Nutrition [...] any N/V/D/C. Pt was recently d/c'd from [facility] for a SBO, no surgical [...] per pt request Referred/Supervised by: Dr. Carpenter/Dr. Ron ALLISONT Billing Type: Re-assess/15 min 1 unit Billed Time: 15 minutes Signed by: Rylee Wilhelm MS, RDN, LD documented in this encounter [facility] 09-23-2021 Miscellaneous Notes DISCHARGE CALL BACK Today's date: September 23, 2021 Notified of Pt discharge by: Call placed to [facility] for follow up. Patient discharged on 09/21/21 from [facility] to Home Primary Cancer Diagnosis: Oropharnxy Cancer Admitting Diagnosis: SBO Discharge Summary/SBAR reviewed: No - Requested from medical records Handoff Discussed with Transitional Systems Trainer: No, unavailable Psychosocial Risk Factors: None If [...] Cynthia Cutler RN documented in this encounter [facility] 09-23-2021 Miscellaneous Notes FYI: Pt was dc'd home over the weekend. In today for follow up. Cris: Please scan hospital records from [facility]. Thanks! Cynthia Cutler RN FYI: Pt transferred from [facility] ER to [facility]. Admitted w/ SBO. Spoke w/ his bedside nurse who reports the pt is scheduled for a small bowel follow through today to confirm placement of his NG tube. No additional treatment plans in place at this time. Clerical: Please cancel tomorrow's appointment. Thanks! Cynthia Cutler RN documented in this encounter [facility] 09-23-2021 History of Present illness Narrative PATIENT [...] hold. He subsequently was seen at the [place] emergency room on 2021 and transferred to [facility] for suspected small bowel obstruction. [...] for carcinoma. 07/17/2020 Base of tongue biopsy ([facility]) Invasive squamous cell carcinoma HPV negative LABS: [...] FDG avid neoplastic process.. 07/13/2020 Chest x-ray ([facility]) No acute disease 07/09/2020 CT neck ([facility]) 3.6 x 3.4 x 2.6 cm infiltrative [...] cell carcinoma. The patient was referred to [facility] (Dr. Olivarez), and subsequently underwent a [...] CC: Dr. Bagley documented in this encounter [facility] 2021 Miscellaneous Notes Thank you for the update Anthony Weaver PA-C FYI: Follow up call placed to pt. Still having abdominal pain, nausea, and vomiting. Notes pain is in his upper middle abdomen, just above his umbilicus. Denies diarrhea. Last BM was yesterday. States he getting ready to head to the ER. Report phoned to Dr Arana @ [facility] ER. Last office note and med list faxed to [phone]. Cynthia Cutler RN documented in this encounter [facility] 09-17-2021 Miscellaneous Notes Pt notified of Anthony's [...] Katrin Burton RN documented in this encounter [facility] 09-16-2021 Miscellaneous Notes Pt notified and verbalizes understanding. Cynthia Cutler RN Pt left before completing his Xray today. Will do Xray when here for radiation tomorrow. Anthony instructs to have pt go to ER if his abdominal pain worsens in the meantime. Call placed to pt. No answer. Message left requesting call back. Cynthia Cutler RN documented in this encounter [facility] 09-16-2021 History of Present illness Narrative PATIENT [...] for carcinoma. 07/17/2020 Base of tongue biopsy ([facility]) Invasive squamous cell carcinoma HPV negative LABS: [...] FDG avid neoplastic process.. 07/13/2020 Chest x-ray ([facility]) No acute disease 07/09/2020 CT neck ([facility]) 3.6 x 3.4 x 2.6 cm infiltrative [...] cell carcinoma. The patient was referred to [facility] (Dr. Olivarez), and subsequently underwent a [...] CC: Dr. 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 RIMA Ruelas documented in this encounter [facility] 09-09-2021 History of Present illness Narrative Nutrition [...] Billed Time: 15 minutes Signed by: Rylee Wilhelm, , RDN, LD documented in this encounter [facility] 09-09-2021 Miscellaneous Notes Pt receiving dose 5 carboplatin today and reports that he forgot to mention that my feet are starting to have more tingling. Pt denies recent falls and reports that neuropathy is tolerable. Wanted you to be aware as he doesn't have f/u prior to his next dose. 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 07/17/2020 Base of tongue biopsy ([facility]) Invasive squamous cell carcinoma HPV negative LABS: [...] FDG avid neoplastic process.. 07/13/2020 Chest x-ray ([facility]) No acute disease 07/09/2020 CT neck ([facility]) 3.6 x 3.4 x 2.6 cm infiltrative [...] cell carcinoma. The patient was referred to [facility] (Dr. Olivarez), and subsequently underwent a [...] CC: Dr. Bagley documented in this encounter [facility] 09-02-2021 History of Present illness Narrative . documented in this encounter [facility] 09-02-2021 History of Present illness Narrative PATIENT [...] for carcinoma. 07/17/2020 Base of tongue biopsy ([facility]) Invasive squamous cell carcinoma HPV negative LABS: [...] FDG avid neoplastic process.. 07/13/2020 Chest x-ray ([facility]) No acute disease 07/09/2020 CT neck ([facility]) 3.6 x 3.4 x 2.6 cm infiltrative [...] cell carcinoma. The patient was referred to [facility] (Dr. Olivarez), and subsequently underwent a [...] CC: Dr. 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 07/17/2020 Base of tongue biopsy ([facility]) Invasive squamous cell carcinoma HPV negative LABS: [...] FDG avid neoplastic process.. 07/13/2020 Chest x-ray ([facility]) No acute disease 07/09/2020 CT neck ([facility]) 3.6 x 3.4 x 2.6 cm infiltrative [...] cell carcinoma. The patient was referred to [facility] (Dr. Olivarez), and subsequently underwent a [...] CC: Dr. Bagley documented in this encounter [facility] 08-15-2021 Miscellaneous Notes CYCLE 1/DAY 1 POST [...] to take naps? No Rates today's fatigue /10. Pain: No=0 (pain 0 on a scale [...] Cynthia Cutler RN documented in this encounter [facility] 08-12-2021 Miscellaneous Notes Pt's chemo ed completed via telephone prior to today's appointment. Pt given the [facility]ocare handout, when to call list, and contact information today. No additional questions noted. 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 07/17/2020 Base of tongue biopsy ([facility]) Invasive squamous cell carcinoma HPV negative LABS: [...] FDG avid neoplastic process.. 07/13/2020 Chest x-ray ([facility]) No acute disease 07/09/2020 CT neck ([facility]) 3.6 x 3.4 x 2.6 cm infiltrative [...] cell carcinoma. The patient was referred to [facility] (Dr. Olivarez), and subsequently underwent a [...] CC: Dr. Bagley documented in this encounter [facility] 08-09-2021 History of Present illness Narrative Episode [...] Planned: 2 Planned Treatment Interventions: Therapeutic exercise (83804);Neuromuscular re-education (06824);Manual therapy (64893);Therapeutic activities (27554);Self-group home management (11991);Patient/Family/Caregiver Education PLAN FOR NEXT VISIT: Manual and [...] Chung PT, DPT documented in this encounter [facility] 08-05-2021 History of Present illness Narrative ONCOLOGY [...] 08/12. Also informed pt of antiemetics pending pickers material handlers in our pharmacy. Pt verbalizes understanding. Denies any questions or concerns at this time. Time Spent: 17 minutes REFERRAL (RECOMMENDATION): Already established w/ Graphics Programmer. 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 Patient has seen my colleague Dr. Green, postoperative reirradiation recommended due to high risk nature of recurrence. Patient offered clinical protocol (ECOG 3191 ) however patient not able to stay in [place] for the duration of treatment seeking to [...] Kathrine Carpenter MD cc: Gildardo Lacy MD ([facility]) [address] [place] [address] Dr. Bagley documented in this encounter [facility] 08-02-2021 Miscellaneous Notes The following approved medication [...] hours as needed. Authorizing Provider: NATHALY BIGGS APRN.SILVINO Scripts for antiemetics pended. Please review and approve. Thanks! Cynthia Cutler RN documented in this encounter [facility] 08-01-2021 History of Present illness Narrative Nutrition [...] follow Referred/Supervised by: Ron/Ron FREEMAN Billing Type: Initial Assess/15 min 2 units Billed Time: 30 minutes Signed by: Rylee Wilhelm MS, RD, LD documented in this encounter [facility] 08-01-2021 History of Present illness Narrative PATIENT [...] cell carcinoma. The patient was referred to [facility] (Dr. Olivarez), and subsequently underwent a [...] for carcinoma. 07/17/2020 Base of tongue biopsy ([facility]) Invasive squamous cell carcinoma HPV negative LABS: [...] FDG avid neoplastic process.. 07/13/2020 Chest x-ray ([facility]) No acute disease 07/09/2020 CT neck ([facility]) 3.6 x 3.4 x 2.6 cm infiltrative [...] cell carcinoma. The patient was referred to [facility] (Dr. Olivarez), and subsequently underwent a [...] would be eligible for current protocol (ECOG EA3817) randomizing patients to receive reirradiation plus a [place] based chemo versus reirradiation plus pembrolizumab versus [...] CC: Dr. Bagley documented in this encounter [facility] 08-01-2021 History of Present illness Narrative ALEJO FLOYD [id number] 08/01/2021 [facility] Radiation Oncology Department SIMULATION NOTE DATE OF SIMULATION: 08/01/2021 THERAPIST: Millie Zaman MACHINE: INDOM DIAGNOSIS: Malignant neoplasm of base of [id number] AREA: head/neck CONTRAST: IV <Select> 100ML OF [...] NIK 24:32 PM documented in this encounter [facility] 08-01-2021 History of Present illness Narrative ALEJO FLOYD [id number] 08/01/2021 [facility] Department of Radiation Oncology Treatment Planning Note [...] M.D. 2:17 PM documented in this encounter [facility] 07-30-2021 Miscellaneous Notes Patient requesting a refill on Megace. States he does have 1 bottle left at home. Erika Martino LPN documented in this encounter [facility] 06-20-2021 Note HNO ID: [id number] Author: RT Maureen(R) Service: Radiology Author Type: Technologist Type: Progress Notes Filed: 06/20/2021 3:33 PM Note Text: Radiology Service Progress Note PATIENT NAME: Alejo Flyod DATE OF SERVICE: June 20, 2021 TIME: [...] Intact, Site disposition Discontinued SIGNED BY: RT Maureen(R) June 20, 2021 3:[address] [facility] 06-04-2021 Note MR#: [id number] I [facility] Pt. Name: Alejo Floyd Admitted: 05/27/2021 [...] is a 60-year-old male, who presented to [facility] ER as a transfer from [facility] for evaluation of small-bowel obstruction. He presents at the [place] for evaluation of 2-3 days of constant abdominal pain, which radiated to the back. Reported nausea and vomiting as well as decreased appetite/oral intake with loose stools in the morning, and he has not been passing any stool or gas since the this morning, the morning of 05/27/2021. At [place], he had a CT of his abdomen [...] was the accepting physician, who transferred to [facility]. The patient arrived with the [...] creatinine on admission what was reported from [place]. The patient was admitted for his NG [...] Dodd CNP Date Trans: 06/04/2021 07:42 A/radha [id number] cc: Gildardo Lacy M.D. [address] [facility] [id number] [facility] 04-05-2021 History of Present illness Narrative [...] 906 PATIENT DISCHARGED TO: Ambulatory patient, left [place] department area. A Diagnostic radioactive procedure has taken place, with no further precautions necessary other than routine body substance precautions. More information regarding radiation safety can be found using this link: [email or web address] SIGNATURE: RT Jose Alfredo(R) PATIENT NAME: Alejo Floyd DATE: April 05, 2021 TIME: 9:12 AM PAGER/CONTACT #: documented in this encounter [facility] 04-05-2021 Nurse Note Radiology Service Progress Note [...] DATE: April 05, 2021 TIME: 9:08 AM [facility] Work Phone: 04-05-2021 Nurse Note Radiology Service [...] TIME: 9:08 AM documented in this encounter [facility] 11-30-2014 Chief complaint Narrative - Reported ALEJO FLOYD is being seen for a consultation for SRE.61-year-old -Iranian who is in my office for the first time to establish relationship with cardiology. The patient has history of active tobacco abuse and PAD involving mostly the left femoral artery where he had stenting done several years ago in [place]. He has no previous cardiac catheterizations or [...] would likely benefit from statin therapy [facility] Work Phone: 11-29-2014 Chief complaint Narrative - Reported ALEJO FLOYD is being seen for a consultation for SRE.61-year-old -Iranian who is in my office for the first time to establish relationship with cardiology. The patient has history of active tobacco abuse and PAD involving mostly the left femoral artery where he had stenting done several years ago in [place]. He has no previous cardiac catheterizations or [...] He would likely benefit [facility] statin [facility] Work Phone: 11-27-2014 Chief complaint Narrative - Reported ALEJO FLOYD is being seen for a consultation for SRE.61-year-old -Iranian who is in my office for the first time to establish relationship with cardiology. The patient has history of active tobacco abuse and PAD involving mostly the left femoral artery where he had stenting done several years ago in [place]. He has no previous cardiac catheterizations or [...] He would likely benefit from statin therapy -[facility] DO Work Phone: Evaluation note Diagnosis Oropharnyx cancer (HCC)- Primary 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 Malaise and fatigue Other malaise and fatigue [facility] Diagnosis Oropharnyx cancer (HCC)- Primary [facility] Diagnosis Oropharnyx cancer (HCC)- Primary [facility] Diagnosis Physical deconditioning- Primary Debility, unspecified Current smoker Tobacco use disorder [facility] 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 [facility] 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 [facility] Diagnosis Oropharnyx cancer (HCC)- Primary [facility] Diagnosis Oropharnyx cancer (HCC)- Primary Cancer [...] Tachycardia, unspecified [facility] Diagnosis Oropharnyx cancer (HCC)- Primary [facility] 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 [facility] 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 [facility] Diagnosis Oropharnyx cancer (HCC)- Primary [facility] Diagnosis Oropharnyx cancer (HCC)- Primary Cancer [...] Tachycardia Tachycardia, unspecified [facility] 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 [facility] Diagnosis Oropharnyx cancer (HCC)- Primary [facility] 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 [facility] 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 [facility] 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 Severe protein-calorie malnutrition (HCC) Other severe protein-calorie malnutrition [facility] Diagnosis Nausea- Primary Nausea alone Lower abdominal pain Abdominal pain, other specified site 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 [facility] Diagnosis Lower abdominal pain- Primary Abdominal pain, other specified site 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 Nausea Nausea alone [facility] Diagnosis Oropharnyx cancer (HCC)- Primary [facility] 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 [facility] Diagnosis Oropharnyx cancer (HCC)- Primary [facility] Diagnosis Oropharnyx cancer (HCC)- Primary Malaise and fatigue Other malaise and fatigue Severe protein-calorie malnutrition (HCC) Other severe protein-calorie malnutrition [facility] Diagnosis Oropharnyx cancer (HCC)- Primary [facility] Diagnosis Oropharnyx cancer (HCC)- Primary [facility]* Diagnosis 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, face, and neck 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* 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 Cancer related pain Neoplasm related pain (acute) (chronic) Need for influenza vaccination Need for prophylactic vaccination and inoculation against influenza [facility]* Diagnosis Oropharnyx cancer (HCC)- Primary [facility] 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 [facility] 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 [facility]* Diagnosis Oropharnyx cancer (HCC)- Primary [facility] Diagnosis Oropharnyx cancer (HCC)- Primary Severe protein-calorie malnutrition (HCC) Other severe protein-calorie malnutrition Chronic obstructive pulmonary disease, unspecified COPD type (HCC) [facility]* Diagnosis PVD (peripheral vascular disease) (CMS/HCC)- Primary Unspecified peripheral vascular disease Abnormal EKG Nonspecific abnormal electrocardiogram (ECG) (EKG) TIA (transient ischemic attack) Unspecified transient cerebral ischemia Current smoker Hyperlipidemia, unspecified hyperlipidemia type Pulmonary emphysema, unspecified emphysema type (CMS/HCC) documented in this encounter [facility] Work Phone: Evaluation note* 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 Malaise and fatigue Other malaise and fatigue Chronic obstructive pulmonary disease, unspecified COPD type (HCC) Severe protein-calorie malnutrition (HCC) Other severe protein-calorie malnutrition Cancer related pain Neoplasm related pain (acute) (chronic) documented in this encounter [facility] note* Diagnosis 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, face, and neck History of radiation therapy Personal history of irradiation, presenting hazards to health documented in this encounter [facility] noteNo assessment information [facility] Work Phone: Evaluation note* Diagnosis Oropharnyx cancer [...] hazards to health documented in this encounter [facility] note* Diagnosis Oropharnyx cancer (HCC)- Primary Pharyngeal [...] severe protein-calorie malnutrition [facility] Diagnosis Oropharnyx cancer (HCC)- Primary Pharyngeal [...] malaise and fatigue documented in this encounter [facility] note* Diagnosis Oropharnyx cancer (HCC)- Primary Pharyngeal [...] 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 [facility] note* Diagnosis Oropharnyx cancer (HCC)- Primary Pharyngeal [...] 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 [facility] note* Diagnosis Oropharnyx cancer (HCC)- Primary Pharyngeal [...] 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 Diagnosis Malignant neoplasm of head, face [...] Dysphagia, unspecified type [facility] Diagnosis Preop examination- Primary Unspecified pre-operative examination [facility] Essential hypertension (CMS/HCC)- Primary Unspecified [...] right shoulder- Primary documented in this encounter [facility]* Diagnosis Essential hypertension (CMS/HCC)- [...] right shoulder- Primary documented in this encounter [facility]* Diagnosis Essential hypertension (CMS/HCC)- [...] inoculation against influenza documented in this encounter [facility]* Diagnosis Essential hypertension (CMS/HCC)- [...] right shoulder- Primary [facility] [...] tissues of limb documented in this encounter [facility]* Diagnosis PVD (peripheral vascular disease) (CMS-HCC) Unspecified peripheral vascular disease Hyperlipidemia, unspecified hyperlipidemia type TIA (transient ischemic attack) Unspecified transient cerebral ischemia BMI less than 19,adult Current smoker documented in this encounter [facility] Work Phone: Evaluation note* Diagnosis Internal derangement of right shoulder- Primary [facility]* Diagnosis DDD (degenerative disc disease), [...] Arthralgia, unspecified joint documented in this encounter [facility]* Diagnosis Essential hypertension (CMS/HCC)- [...] thoracolumbar intervertebral disc documented in this encounter [facility] note* Diagnosis Essential hypertension (CMS/HCC)- [...] thoracolumbar intervertebral disc documented in this encounter [facility]* Diagnosis Essential hypertension (CMS/HCC)- [...] COPD type (CMS/HCC) documented in this encounter [facility]* Diagnosis Oropharnyx cancer (HCC)- [...] Primary Generalized pain documented in this encounter [facility] note* Diagnosis Oropharnyx cancer (HCC)- Primary Pharyngeal [...] Tobacco use disorder documented in this encounter [facility] note* Diagnosis Oropharnyx cancer (HCC)- Primary Pharyngeal [...] Pain Generalized pain [facility] Diagnosis Essential hypertension (CMS/HCC)- Primary Unspecified [...] thoracolumbar intervertebral disc [facility] Oropharnyx cancer (HCC)- Primary Pharyngeal [...] face, and neck [facility] Diagnosis Essential hypertension (CMS/HCC)- Primary Unspecified [...] obstructive pulmonary disease, unspecified COPD type (CMS/HCC) Cerebrovascular accident (CVA), unspecified mechanism (CMS/HCC)- Primary Occlusion of left internal carotid artery Dyslipidemia (CMS/HCC) Other and unspecified hyperlipidemia Essential hypertension (CMS/HCC) Unspecified essential hypertension documented in this encounter [facility]* Diagnosis Essential hypertension (CMS/HCC)- [...] obstructive pulmonary disease, unspecified COPD type (CMS/HCC) Cerebrovascular accident (CVA), unspecified mechanism (CMS/HCC)- Primary Occlusion of left internal carotid artery Dyslipidemia (CMS/HCC) Other and unspecified hyperlipidemia Essential hypertension (CMS/HCC) Unspecified essential hypertension DDD (degenerative disc disease), thoracic Degeneration of [...] obstructive pulmonary disease, unspecified COPD type (CMS/HCC) Cerebrovascular accident (CVA), unspecified mechanism (CMS/HCC)- Primary Occlusion of left internal carotid artery Dyslipidemia (CMS/HCC) Other and unspecified hyperlipidemia Essential hypertension (CMS/HCC) Unspecified essential hypertension Primary insomnia Persistent disorder of initiating or maintaining sleep documented in this encounter [facility]* Diagnosis Essential hypertension (CMS/HCC)- [...] obstructive pulmonary disease, unspecified COPD type (CMS/HCC) Cerebrovascular accident (CVA), unspecified mechanism (CMS/HCC)- Primary Occlusion of left internal carotid artery Dyslipidemia (CMS/HCC) Other and unspecified hyperlipidemia Essential hypertension (CMS/HCC) Unspecified essential hypertension Pneumonia due to infectious organism, unspecified laterality, unspecified part of lung- Primary Chronic obstructive pulmonary disease with acute exacerbation (CMS/HCC) Acute hypoxic respiratory failure (CMS/HCC) Chronic obstructive pulmonary disease, unspecified COPD type (CMS/HCC) Tongue cancer (CMS/HCC) Malignant neoplasm of tongue, unspecified site Dyslipidemia (CMS/HCC) Other and unspecified hyperlipidemia documented in this encounter [facility]* Diagnosis Chronic obstructive pulmonary disease, unspecified COPD type (Multi)- Primary PVD (peripheral vascular disease) (CMS-HCC) Unspecified peripheral vascular disease Current smoker Dyspnea, unspecified type Hyperlipidemia, unspecified hyperlipidemia type TIA (transient ischemic attack) Unspecified transient cerebral ischemia documented in this encounter [facility] Work Phone: Evaluation note* Diagnosis Essential hypertension (CMS/HCC)- Primary Unspecified [...] obstructive pulmonary disease, unspecified COPD type (CMS/HCC) Cerebrovascular accident (CVA), unspecified mechanism (CMS/HCC)- Primary Occlusion of left internal carotid artery Dyslipidemia (CMS/HCC) Other and unspecified hyperlipidemia Essential hypertension (CMS/HCC) Unspecified essential hypertension Pneumonia due to infectious organism, unspecified laterality, unspecified part of lung- Primary Chronic obstructive pulmonary disease with acute exacerbation (CMS/HCC) Acute hypoxic respiratory failure (CMS/HCC) Chronic obstructive pulmonary disease, unspecified COPD type (CMS/HCC) Tongue cancer (CMS/HCC) Malignant neoplasm of tongue, unspecified site Dyslipidemia (CMS/HCC) Other and unspecified hyperlipidemia DDD (degenerative disc disease), thoracic Degeneration of [...] obstructive pulmonary disease, unspecified COPD type (CMS/HCC) Cerebrovascular accident (CVA), unspecified mechanism (CMS/HCC)- Primary Occlusion of left internal carotid artery Dyslipidemia (CMS/HCC) Other and unspecified hyperlipidemia Essential hypertension (CMS/HCC) Unspecified essential hypertension Pneumonia due to infectious organism, unspecified laterality, unspecified part of lung- Primary Chronic obstructive pulmonary disease with acute exacerbation (CMS/HCC) Acute hypoxic respiratory failure (CMS/HCC) Chronic obstructive pulmonary disease, unspecified COPD type (CMS/HCC) Tongue cancer (CMS/HCC) Malignant neoplasm of tongue, unspecified site Dyslipidemia (CMS/HCC) Other and unspecified hyperlipidemia Essential hypertension (CMS/HCC)- Primary Unspecified essential hypertension Chronic obstructive pulmonary disease, unspecified COPD type (CMS/HCC) Chronic hypoxic respiratory failure (CMS/HCC) Thoracic spondylosis MDD (major depressive disorder), recurrent episode, mild (HCC) (CMS/HCC) Primary insomnia Persistent disorder of initiating or maintaining sleep Tongue cancer (CMS/HCC) Malignant neoplasm of tongue, unspecified site Occlusion of left internal carotid artery [facility] Diagnosis Essential hypertension- Primary Unspecified essential hypertension Thoracic spondylosis MDD (major depressive disorder), recurrent episode, mild Primary insomnia Persistent disorder of initiating or maintaining sleep Chronic obstructive pulmonary disease, unspecified COPD type (HCC) Chemotherapy-induced peripheral neuropathy (HCC) Tongue cancer (HCC) Malignant neoplasm of tongue, unspecified site 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) Encounter for long-term (current) use of medications Encounter for long-term (current) use of other medications Prediabetes Other abnormal glucose Dyslipidemia Other and unspecified hyperlipidemia Screening PSA (prostate specific antigen) Special screening for malignant neoplasm of prostate Other fatigue Chronic obstructive pulmonary disease, unspecified COPD type (HCC)- Primary Need for immunization against influenza Need for prophylactic vaccination and inoculation against influenza Medicare annual wellness visit, subsequent- Primary Left foot pain Pain in soft tissues of limb Chemotherapy-induced peripheral neuropathy (HCC)- Primary Unsteady gait Abnormality of gait Tongue cancer (HCC) Malignant neoplasm of tongue, unspecified site Chronic obstructive pulmonary disease, unspecified COPD type (HCC) Cerebrovascular accident (CVA), unspecified mechanism (HCC)- Primary Occlusion of left internal carotid artery Dyslipidemia Other and unspecified hyperlipidemia Essential hypertension Unspecified essential hypertension Pneumonia due to infectious organism, unspecified laterality, unspecified part of lung- Primary Chronic obstructive pulmonary disease with acute exacerbation (HCC) Acute hypoxic respiratory failure (HCC) Chronic obstructive pulmonary disease, unspecified COPD type (HCC) Tongue cancer (HCC) Malignant neoplasm of tongue, unspecified site Dyslipidemia Other and unspecified hyperlipidemia Essential hypertension- Primary Unspecified essential hypertension Chronic obstructive pulmonary disease, unspecified COPD type (HCC) Chronic hypoxic respiratory failure (HCC) Thoracic spondylosis MDD (major depressive disorder), recurrent episode, mild Primary insomnia Persistent disorder of initiating or maintaining sleep Tongue cancer (HCC) Malignant neoplasm of tongue, unspecified site Occlusion of left internal carotid artery Chronic obstructive pulmonary disease, unspecified COPD type (HCC)- Primary Chronic hypoxic respiratory failure (HCC) DDD (degenerative disc disease), thoracic Degeneration of thoracic or thoracolumbar intervertebral disc documented in this encounter [facility]* Diagnosis Essential hypertension- Primary Unspecified essential hypertension Thoracic spondylosis MDD (major depressive disorder), recurrent episode, mild Primary insomnia Persistent disorder of initiating or maintaining sleep Chronic obstructive pulmonary disease, unspecified COPD type (HCC) Chemotherapy-induced peripheral neuropathy (HCC) Tongue cancer (HCC) Malignant neoplasm of tongue, unspecified site 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) Encounter for long-term (current) use of medications Encounter for long-term (current) use of other medications Prediabetes Other abnormal glucose Dyslipidemia Other and unspecified hyperlipidemia Screening PSA (prostate specific antigen) Special screening for malignant neoplasm of prostate Other fatigue Chronic obstructive pulmonary disease, unspecified COPD type (HCC)- Primary Need for immunization against influenza Need for prophylactic vaccination and inoculation against influenza Medicare annual wellness visit, subsequent- Primary Left foot pain Pain in soft tissues of limb Chemotherapy-induced peripheral neuropathy (HCC)- Primary Unsteady gait Abnormality of gait Tongue cancer (HCC) Malignant neoplasm of tongue, unspecified site Chronic obstructive pulmonary disease, unspecified COPD type (HCC) Cerebrovascular accident (CVA), unspecified mechanism (HCC)- Primary Occlusion of left internal carotid artery Dyslipidemia Other and unspecified hyperlipidemia Essential hypertension Unspecified essential hypertension Pneumonia due to infectious organism, unspecified laterality, unspecified part of lung- Primary Chronic obstructive pulmonary disease with acute exacerbation (HCC) Acute hypoxic respiratory failure (HCC) Chronic obstructive pulmonary disease, unspecified COPD type (HCC) Tongue cancer (HCC) Malignant neoplasm of tongue, unspecified site Dyslipidemia Other and unspecified hyperlipidemia Essential hypertension- Primary Unspecified essential hypertension Chronic obstructive pulmonary disease, unspecified COPD type (HCC) Chronic hypoxic respiratory failure (HCC) Thoracic spondylosis MDD (major depressive disorder), recurrent episode, mild Primary insomnia Persistent disorder of initiating or maintaining sleep Tongue cancer (HCC) Malignant neoplasm of tongue, unspecified site Occlusion of left 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), thoracic Degeneration of thoracic or thoracolumbar intervertebral disc documented in this encounter [facility] HealthcareEvaluation note* Diagnosis Essential hypertension- Primary Unspecified essential hypertension Thoracic spondylosis MDD (major depressive disorder), recurrent episode, mild Primary insomnia Persistent disorder of initiating or maintaining sleep Chronic obstructive pulmonary disease, unspecified COPD type (HCC) Chemotherapy-induced peripheral neuropathy (HCC) Tongue cancer (HCC) Malignant neoplasm of tongue, unspecified site 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) Encounter for long-term (current) use of medications Encounter for long-term (current) use of other medications Prediabetes Other abnormal glucose Dyslipidemia Other and unspecified hyperlipidemia Screening PSA (prostate specific antigen) Special screening for malignant neoplasm of prostate Other fatigue Chronic obstructive pulmonary disease, unspecified COPD type (HCC)- Primary Need for immunization against influenza Need for prophylactic vaccination and inoculation against influenza Medicare annual wellness visit, subsequent- Primary Left foot pain Pain in soft tissues of limb Chemotherapy-induced peripheral neuropathy (HCC)- Primary Unsteady gait Abnormality of gait Tongue cancer (HCC) Malignant neoplasm of tongue, unspecified site Chronic obstructive pulmonary disease, unspecified COPD type (HCC) Cerebrovascular accident (CVA), unspecified mechanism (HCC)- Primary Occlusion of left internal carotid artery Dyslipidemia Other and unspecified hyperlipidemia Essential hypertension Unspecified essential hypertension Pneumonia due to infectious organism, unspecified laterality, unspecified part of lung- Primary Chronic obstructive pulmonary disease with acute exacerbation (HCC) Acute hypoxic respiratory failure (HCC) Chronic obstructive pulmonary disease, unspecified COPD type (HCC) Tongue cancer (HCC) Malignant neoplasm of tongue, unspecified site Dyslipidemia Other and unspecified hyperlipidemia Essential hypertension- Primary Unspecified essential hypertension Chronic obstructive pulmonary disease, unspecified COPD type (HCC) Chronic hypoxic respiratory failure (HCC) Thoracic spondylosis MDD (major depressive disorder), recurrent episode, mild Primary insomnia Persistent disorder of initiating or maintaining sleep Tongue cancer (HCC) Malignant neoplasm of tongue, unspecified site Occlusion of left 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), thoracic Degeneration of thoracic or thoracolumbar intervertebral disc documented in this encounter [facility] HealthcareEvaluation note* Diagnosis Essential hypertension- Primary Unspecified essential hypertension Thoracic spondylosis MDD (major depressive disorder), recurrent episode, mild Primary insomnia Persistent disorder of initiating or maintaining sleep Chronic obstructive pulmonary disease, unspecified COPD type (HCC) Chemotherapy-induced peripheral neuropathy (HCC) Tongue cancer (HCC) Malignant neoplasm of tongue, unspecified site 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) Encounter for long-term (current) use of medications Encounter for long-term (current) use of other medications Prediabetes Other abnormal glucose Dyslipidemia Other and unspecified hyperlipidemia Screening PSA (prostate specific antigen) Special screening for malignant neoplasm of prostate Other fatigue Chronic obstructive pulmonary disease, unspecified COPD type (HCC)- Primary Need for immunization against influenza Need for prophylactic vaccination and inoculation against influenza Medicare annual wellness visit, subsequent- Primary Left foot pain Pain in soft tissues of limb Chemotherapy-induced peripheral neuropathy (HCC)- Primary Unsteady gait Abnormality of gait Tongue cancer (HCC) Malignant neoplasm of tongue, unspecified site Chronic obstructive pulmonary disease, unspecified COPD type (HCC) Cerebrovascular accident (CVA), unspecified mechanism (HCC)- Primary Occlusion of left internal carotid artery Dyslipidemia Other and unspecified hyperlipidemia Essential hypertension Unspecified essential hypertension Pneumonia due to infectious organism, unspecified laterality, unspecified part of lung- Primary Chronic obstructive pulmonary disease with acute exacerbation (HCC) Acute hypoxic respiratory failure (HCC) Chronic obstructive pulmonary disease, unspecified COPD type (HCC) Tongue cancer (HCC) Malignant neoplasm of tongue, unspecified site Dyslipidemia Other and unspecified hyperlipidemia Essential hypertension- Primary Unspecified essential hypertension Chronic obstructive pulmonary disease, unspecified COPD type (HCC) Chronic hypoxic respiratory failure (HCC) Thoracic spondylosis MDD (major depressive disorder), recurrent episode, mild Primary insomnia Persistent disorder of initiating or maintaining sleep Tongue cancer (HCC) Malignant neoplasm of tongue, unspecified site Occlusion of left internal carotid artery Chronic obstructive pulmonary disease, unspecified COPD type (HCC) DDD (degenerative disc disease), thoracic Degeneration of thoracic or thoracolumbar intervertebral disc documented in this encounter [facility] HealthcareEvaluation note* Diagnosis Essential hypertension- Primary Unspecified essential hypertension Thoracic spondylosis MDD (major depressive disorder), recurrent episode, mild Primary insomnia Persistent disorder of initiating or maintaining sleep Chronic obstructive pulmonary disease, unspecified COPD type (HCC) Chemotherapy-induced peripheral neuropathy (HCC) Tongue cancer (HCC) Malignant neoplasm of tongue, unspecified site 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) Encounter for long-term (current) use of medications Encounter for long-term (current) use of other medications Prediabetes Other abnormal glucose Dyslipidemia Other and unspecified hyperlipidemia Screening PSA (prostate specific antigen) Special screening for malignant neoplasm of prostate Other fatigue Chronic obstructive pulmonary disease, unspecified COPD type (HCC)- Primary Need for immunization against influenza Need for prophylactic vaccination and inoculation against influenza Medicare annual wellness visit, subsequent- Primary Left foot pain Pain in soft tissues of limb Chemotherapy-induced peripheral neuropathy (HCC)- Primary Unsteady gait Abnormality of gait Tongue cancer (HCC) Malignant neoplasm of tongue, unspecified site Chronic obstructive pulmonary disease, unspecified COPD type (HCC) Cerebrovascular accident (CVA), unspecified mechanism (HCC)- Primary Occlusion of left internal carotid artery Dyslipidemia Other and unspecified hyperlipidemia Essential hypertension Unspecified essential hypertension Pneumonia due to infectious organism, unspecified laterality, unspecified part of lung- Primary Chronic obstructive pulmonary disease with acute exacerbation (HCC) Acute hypoxic respiratory failure (HCC) Chronic obstructive pulmonary disease, unspecified COPD type (HCC) Tongue cancer (HCC) Malignant neoplasm of tongue, unspecified site Dyslipidemia Other and unspecified hyperlipidemia Essential hypertension- Primary Unspecified essential hypertension Chronic obstructive pulmonary disease, unspecified COPD type (HCC) Chronic hypoxic respiratory failure (HCC) Thoracic spondylosis MDD (major depressive disorder), recurrent episode, mild Primary insomnia Persistent disorder of initiating or maintaining sleep Tongue cancer (HCC) Malignant neoplasm of tongue, unspecified site Occlusion of left internal carotid artery Cigarette smoker- Primary Tobacco use disorder Chronic obstructive pulmonary disease, unspecified COPD type (HCC) Chronic hypoxic respiratory failure (HCC) documented in this encounter [facility] HealthcareEvaluation note* Diagnosis Oropharnyx cancer (HCC)- Primary Pharyngeal dysphagia Dysphagia, pharyngeal phase Acute post-operative pain COPD (chronic obstructive pulmonary disease) (HCC) Chronic airway obstruction, not elsewhere classified PVD (peripheral vascular disease) Peripheral vascular disease, unspecified Essential hypertension, benign Current smoker Tobacco use disorder Dysphagia Dysphagia, unspecified Pre-operative examination- Primary Preoperative examination, unspecified 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 Essential hypertension, benign Tachycardia Tachycardia, unspecified PVD (peripheral vascular disease) Peripheral vascular disease, unspecified Polyneuropathy due to [...] type Insomnia, unspecified type Dysphagia, unspecified type Hypothyroidism due to acquired atrophy of thyroid- Primary [facility] Diagnosis Essential hypertension- Primary Unspecified essential hypertension Thoracic spondylosis MDD (major depressive disorder), recurrent episode, mild Primary insomnia Persistent disorder of initiating or maintaining sleep Chronic obstructive pulmonary disease, unspecified COPD type (HCC) Chemotherapy-induced peripheral neuropathy (HCC) Tongue cancer (HCC) Malignant neoplasm of tongue, unspecified site 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) Encounter for long-term (current) use of medications Encounter for long-term (current) use of other medications Prediabetes Other abnormal glucose Dyslipidemia Other and unspecified hyperlipidemia Screening PSA (prostate specific antigen) Special screening for malignant neoplasm of prostate Other fatigue Chronic obstructive pulmonary disease, unspecified COPD type (HCC)- Primary Need for immunization against influenza Need for prophylactic vaccination and inoculation against influenza Medicare annual wellness visit, subsequent- Primary Left foot pain Pain in soft tissues of limb Chemotherapy-induced peripheral neuropathy (HCC)- Primary Unsteady gait Abnormality of gait Tongue cancer (HCC) Malignant neoplasm of tongue, unspecified site Chronic obstructive pulmonary disease, unspecified COPD type (HCC) Cerebrovascular accident (CVA), unspecified mechanism (HCC)- Primary Occlusion of left internal carotid artery Dyslipidemia Other and unspecified hyperlipidemia Essential hypertension Unspecified essential hypertension Pneumonia due to infectious organism, unspecified laterality, unspecified part of lung- Primary Chronic obstructive pulmonary disease with acute exacerbation (HCC) Acute hypoxic respiratory failure (HCC) Chronic obstructive pulmonary disease, unspecified COPD type (HCC) Tongue cancer (HCC) Malignant neoplasm of tongue, unspecified site Dyslipidemia Other and unspecified hyperlipidemia Essential hypertension- Primary Unspecified essential hypertension Chronic obstructive pulmonary disease, unspecified COPD type (HCC) Chronic hypoxic respiratory failure (HCC) Thoracic spondylosis MDD (major depressive disorder), recurrent episode, mild Primary insomnia Persistent disorder of initiating or maintaining sleep Tongue cancer (HCC) Malignant neoplasm of tongue, unspecified site Occlusion of left internal carotid artery Chronic obstructive pulmonary disease, unspecified COPD type (HCC)- Primary documented in this encounter [facility] HealthcareEvaluation note* Diagnosis Sequelae, post-stroke- Primary PAD (peripheral artery disease) Unspecified peripheral vascular disease Hypertension, unspecified type Hyperlipidemia, unspecified hyperlipidemia type Left ventricular hypertrophy Cardiomegaly ICAO (internal carotid artery occlusion), left Chronic obstructive pulmonary disease, unspecified COPD type ([facility]-HCC) History of throat cancer Tobacco dependence Tobacco use disorder Alcoholism ([facility]-HCC) Other and unspecified alcohol dependence, unspecified drinking behavior [facility]* Diagnosis Essential hypertension- Primary Unspecified essential hypertension Thoracic spondylosis MDD (major depressive disorder), recurrent episode, mild Primary insomnia Persistent disorder of initiating or maintaining sleep Chronic obstructive pulmonary disease, unspecified COPD type (HCC) Chemotherapy-induced peripheral neuropathy (HCC) Tongue cancer (HCC) Malignant neoplasm of tongue, unspecified site 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) Encounter for long-term (current) use of medications Encounter for long-term (current) use of other medications Prediabetes Other abnormal glucose Dyslipidemia Other and unspecified hyperlipidemia Screening PSA (prostate specific antigen) Special screening for malignant neoplasm of prostate Other fatigue Chronic obstructive pulmonary disease, unspecified COPD type (HCC)- Primary Need for immunization against influenza Need for prophylactic vaccination and inoculation against influenza Medicare annual wellness visit, subsequent- Primary Left foot pain Pain in soft tissues of limb Chemotherapy-induced peripheral neuropathy (HCC)- Primary Unsteady gait Abnormality of gait Tongue cancer (HCC) Malignant neoplasm of tongue, unspecified site Chronic obstructive pulmonary disease, unspecified COPD type (HCC) Cerebrovascular accident (CVA), unspecified mechanism (HCC)- Primary Occlusion of left internal carotid artery Dyslipidemia Other and unspecified hyperlipidemia Essential hypertension Unspecified essential hypertension Pneumonia due to infectious organism, unspecified laterality, unspecified part of lung- Primary Chronic obstructive pulmonary disease with acute exacerbation (HCC) Acute hypoxic respiratory failure (HCC) Chronic obstructive pulmonary disease, unspecified COPD type (HCC) Tongue cancer (HCC) Malignant neoplasm of tongue, unspecified site Dyslipidemia Other and unspecified hyperlipidemia Essential hypertension- Primary Unspecified essential hypertension Chronic obstructive pulmonary disease, unspecified COPD type (HCC) Chronic hypoxic respiratory failure (HCC) Thoracic spondylosis MDD (major depressive disorder), recurrent episode, mild Primary insomnia Persistent disorder of initiating or maintaining sleep Tongue cancer (HCC) Malignant neoplasm of tongue, unspecified site Occlusion of left internal carotid artery Metatarsalgia of left foot- Primary Closed displaced fracture of second metatarsal bone of left foot, sequela Left foot pain Pain in soft tissues of limb Equinus contracture of left ankle Other synovitis and tenosynovitis, left ankle and foot documented in this encounter [facility] HealthcareInstructionsNot on filedocumented in this encounterProNor[facility] SystemInstructionsNot on filedocumented in this encounterProUniversity Hospitals Ely[facility] Medical CenterReason for referral (narrative)* Diagnostic Procedure Only (Routine) - Authorized Specialty Diagnoses / Procedures Referred By Morris metzger Referred To Contact XR IMAGING Diagnoses Lower abdominal pain Procedures XR ABDOMEN 2V ROUTINE SUPINE W UPRIGHT/DECUB/CTL RADIOLOGIC EXAM ABDOMEN 2 VIEWS Anthony Weaver PA-C [address] [place] [address] Xr Imaging Referral ID Status Reason Start Date Expiration Date Visits Requested Visits Authorized [id number] Authorized Auto-Generat ed Referral 09/16/2021 10/16/2022 1 1 [facility] for referral (narrative)* Diagnostic Procedure Only (Routine) - Pending Review Specialty Diagnoses / Procedures Referred By Contac t Referred To Contact MOLECULAR & FUNCTIONAL IMAGING Diagnoses Oropharnyx cancer (HCC) Procedures NM PET/CT SKULL-THIGH SUBSEQUENT PET IMAGING CT ATTENUATION SKULL BASE MID-THIGH Kathrine Carpenter MD [address] [place] [address] Molecular & Functional Imaging [address] [place] [address] Referral ID Status Reason Start Date Expiration Date Visits Requested Visits Authorized [id number] Pending Review Auto-Generat ed Referral 12/22/2021 12/21/2022 1 1 [facility] for referral (narrative)* Consultation (Routine) - Authorized Specialty Diagnoses / Procedures Referred By Contac t Referred To Contact Cardiology Diagnoses PVD (peripheral vascular disease) ([facility]/HCC) Procedures Follow Up In Cardiology Carmen Neely MD [address] [place] [address] 2, [address] [address] Carmen Neely MD [address] [place] [address] 2, [facility] [address] [place] [address] Referral ID Status Reason Start Date Expiration Date V isits Requested Visits Authorized [id number] Authorized 05/06/2023 05/05/2024 1 1 [facility] Work Phone: [facility] for referral (narrative)* Diagnostic Procedure Only (Routine) - Pending Review Specialty Diagnoses / Procedures Referred By Contac t Referred To Contact MOLECULAR & FUNCTIONAL IMAGING Diagnoses Cancer of base of tongue (HCC) Malaise and fatigue Procedures NM PET/CT SKULL-THIGH SUBSEQUENT PET IMAGING CT ATTENUATION SKULL BASE MID-THIGH Esdras Cash MD [address] [place] [address] [place] [address] Molecular & Functional Imaging [address] [place] [address] Referral ID Status Reason Start Date Expiration Date Visits Requested Visits Authorized [id number] Pending Review Auto-Generat ed Referral 08/18/2023 09/16/2024 1 1 T [facility] for referral (narrative)* Diagnostic Procedure Only (Routine) - Closed Specialty Diagnoses / Procedures Referred By Contac t Referred To Contact MOLECULAR & FUNCTIONAL IMAGING Diagnoses Cancer of base of tongue (HCC) Malaise and fatigue Procedures NM PET/CT SKULL-THIGH SUBSEQUENT PET IMAGING CT ATTENUATION SKULL BASE MID-THIGH Esdras Cash MD [address] [place] [address] [place] [address] Molecular & Functional Imaging [address] [place], [place] [id number] Referral ID Status Reason Start Date Expiration Date V isits Requested Visits Authorized [id number] Closed Auto-Generate d Referral 11/20/2023 01/19/2024 1 1 [facility] for referral (narrative)* Diagnostic Procedure Only (Routine) - Closed Specialty Diagnoses / Procedures Referred By Contac t Referred To Contact MOLECULAR & FUNCTIONAL IMAGING Diagnoses Cancer of base of tongue (HCC) Procedures NM PET/CT SKULL-THIGH SUBSEQUENT PET IMAGING CT ATTENUATION SKULL BASE MID-THIGH Esdras Cash MD [address] [place] [address] [place] [address] Molecular & Functional Imaging [address] [place] [address] Referral ID Status Reason Start Date Expiration Date V isits Requested Visits Authorized [id number] Closed Auto-Generate d Referral OON/Self Pay Override 02/11/2023 03/13/2023 1 1 [facility] for referral (narrative)* Diagnostic Procedure Only (Routine) - Closed Specialty Diagnoses / Procedures [facility] To Contact MOLECULAR & FUNCTIONAL IMAGING Diagnoses Oropharnyx cancer (HCC) Procedures NM PET/CT SKULL-THIGH SUBSEQUENT PET IMAGING CT ATTENUATION SKULL BASE MID-THIGH Kathrine Carpenter MD [address] [place] [address] [place] [address] Molecular & Functional Imaging [address] [place], [place] [id number] Referral ID Status Reason Start Date Expiration Date V isits Requested Visits Authorized [id number] Closed Auto-Generate d Referral 12/23/2021 01/22/2022 1 1 T [facility] for referral (narrative)* Diagnostic Procedure Only (Routine) - Closed Specialty Diagnoses / Procedures Referred By Contac t Referred To Contact MOLECULAR & FUNCTIONAL IMAGING Diagnoses Malignant neoplasm of head, face and neck (HCC) Procedures NM PET/CT SKULL-THIGH SUBSEQUENT TUMOR IMAGING PET W/CONC CT SKULL-THIGH Kathrine Carpenter MD [address] [facility] [place] [address] Molecular & Functional Imaging [address] [place] [address] Referral ID Status Reason Start Date Expiration Date Visits Re quested Visits Authorized Closed 04/05/2021 05/05/2021 1 1 [facility] for referral (narrative)* Diagnostic Procedure Only (Routine) - Authorized Specialty Diagnoses / Procedures [facility] Referred To Contact XR IMAGING Diagnoses Pain Procedures XR SHOULDER GENERAL 3V OR MORE AP/TRUE AP/OTHER RIGHT RADEX SHOULDER COMPLETE MINIMUM 2 VIEWS Hebert Miguel MD [address] [place] [address] Xr Imaging [place] [address] Referral ID Status Reason Start Date Expiration Date Visits Requested Visits Authorized [id number] Authorized Auto-Generat ed Referral 06/07/2024 07/07/2025 1 1 [facility] for visit Narrative* Diagnostic Procedure Only (Routine) - Closed Specialty Diagnoses / Procedures Referred By Contac t Referred To Contact Radiation Oncology / RADIATION ONCOLOGY Diagnoses Malignant neoplasm of base of tongue SIM/KAI/Neck - IV Contrast Procedures SIMULATION [place]EL[place]Y IMRT 30 fractions Kathrine Carpenter MD [facility] [place] [address] Kathrine Carpenter MD [address] [place] [address] Referral ID Status Reason Start Date Expiration Date Visits Re quested Visits Authorized [id number] Closed 08/01/2021 10/30/2021 31 31 [facility] for visit Narrative* Consultation (Routine) - Closed Specialty Diagnoses / Procedures Referred By Contac t Referred To Contact Pulmonary Disease / Pulmonology Diagnoses Chronic obstructive pulmonary disease, unspecified COPD type (HCC) Chronic hypoxic respiratory failure (HCC) Procedures RI OFFICE/OUTPATIENT NEW HIGH [facility] 60 MINUTES Gildardo Lacy MD [address] [place] [address] Phone: tel: fax: Kaela Negrete, [address] [place] [address] Referral ID Status Reason Start Date Expiration Date V isits Requested Visits Authorized [id number] Closed Specialty Services Required 10/17/2024 04/15/2025 1 1 [facility] Summary Purpose Family History No Family History [...] FoundDocuments on File Type Date Recorded 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 [facility] [address] [place] [address] [facility] [place] [address] [place] [address] Referral ID Status Reason Start Date Expiration Date Visits Requested Visits Authorized [id number] Pending Review PCP Requested Referral Auto-Generate d Referral 08/09/2021 11/07/2021 1 1 Specialty Diagnoses / Procedures Referred By Contac t Referred To Contact CT IMAGING Diagnoses Oropharnyx cancer (HCC) Procedures CT CHEST W IVCON DIAGNOSTIC COMPUTED TOMOGRAPHY THORAX W/CONTRAST Kathrine Carpenter MD [address] [place] [address] [place] [address] Ct Imaging Referral ID Status Reason Start Date Expiration Date Visits Requested Visits Authorized [id number] Pending Review Auto-Generat ed Referral 2 03/27/2023 1 1 Specialty Diagnoses / Procedures Referred By Contac t Referred To Contact CT IMAGING Diagnoses Oropharnyx cancer (HCC) Procedures CT NECK SOFT TISSUE W IVCON CT SOFT TISSUE NECK W/CONTRAST MATERIAL Kathrine Carpenter MD [address] [place] [address] [place] [address] Ct Imaging Referral ID Status Reason Start Date Expiration Date Visits Requested Visits Authorized [id number] Pending Review Auto-Generat ed Referral 2 03/27/2023 1 1 Specialty Diagnoses / Procedures Referred By Contac t Referred To Contact CT IMAGING Diagnoses Oropharnyx cancer (HCC) Procedures CT CHEST W IVCON DIAGNOSTIC COMPUTED TOMOGRAPHY THORAX W/CONTRAST Kathrine Carpenter MD [address] [facility] [place] [address] [place] [address] Referral ID Status Reason Start Date Expiration Date V isits Requested Visits Authorized [id number] Closed Auto-Generate d Referral 07/16/2022 08/15/2023 1 1 Specialty Diagnoses / Procedures Referred By Contac t Referred To Contact CT IMAGING Diagnoses Oropharnyx cancer (HCC) Procedures CT NECK SOFT TISSUE WO IVCON CT SOFT TISSUE NECK W/O CONTRAST MATERIAL Kathrine Carpenter MD [address] [facility] [place] [address] [place] [address] Referral ID Status Reason Start Date Expiration Date V isits Requested Visits Authorized [id number] Closed Auto-Generate d Referral 07/16/2022 08/15/2023 1 1 Referral ID Status Reason Start Date Expiration Date V isits Requested Visits Authorized [id number] Closed Auto-Generate d Referral 04/14/2022 05/14/2022 1 1 Specialty Diagnoses / Procedures Referred By Contac t Referred To Contact CT IMAGING Diagnoses Oropharnyx cancer (HCC) Procedures CT NECK SOFT TISSUE W IVCON CT SOFT TISSUE NECK W/CONTRAST MATERIAL Kathrine Carpenter MD [address] [facility] [place] [address] [place] [address] Referral ID Status Reason Start Date Expiration Date V isits Requested Visits Authorized [id number] Closed Auto-Generate d Referral 04/14/2022 05/14/2022 1 1 Specialty Diagnoses / Procedures Referred By Contac t Referred To Contact Diagnoses PVD (peripheral vascular disease) ([facility]) Procedures ECG 12 Lead Carmen Neely MD [address] [facility] [address], [address] [place] [address] Referral ID Status Reason Start Date Expiration Date V isits Requested Visits Authorized [id number] Authorized 11/17/2023 11/16/2024 1 1 Specialty Diagnoses / Procedures Referred By Contac t Referred To Contact Cardiology Diagnoses PVD (peripheral vascular disease) ([facility]) Procedures Follow Up In Cardiology Carmen Neely MD [address] [place] [address] 2, [address] [address] Carmen Neely MD [address] [facility] [address], [address] [address] Referral ID Status Reason Start Date Expiration Date V isits Requested Visits Authorized [id number] Authorized 11/17/2023 11/16/2024 1 1 Medications Administered [...] had PVR study several months ago at [facility] which I requested. His cardiac and pulmonary [...] section and content) DATE CREATED AUTHOR 10/27/2017 [facility] DATE CREATED AUTHOR AUTHOR'S ORGANIZ ATION 04/10/2018 [facility] DATE CREATED AUTHOR AUTHOR'S ORGANIZ ATION 04/11/2018 [facility] DATE CREATED AUTHOR AUTHOR'S ORGANIZ ATION 04/17/2018 [facility] DATE CREATED AUTHOR AUTHOR'S ORGANIZ ATION 06/21/2021 [facility] DATE CREATED AUTHOR AUTHOR'S ORGANIZ ATION 06/25/2021 [facility] DATE CREATED AUTHOR AUTHOR'S ORGANIZ ATION 10/17/2021 [facility] DATE CREATED AUTHOR AUTHOR'S ORGANIZ ATION 01/29/2022 [facility] DATE CREATED AUTHOR AUTHOR'S ORGANIZ ATION 06/11/2022 [facility] DATE CREATED AUTHOR AUTHOR'S ORGANIZ ATION 06/11/2022 [employer] DATE CREATED AUTHOR AUTHOR'S ORGANIZ ATION 10/10/2022 [facility] DATE CREATED AUTHOR AUTHOR'S ORGANIZ ATION 11/03/2023 [facility] DATE CREATED AUTHOR AUTHOR'S ORGANIZ ATION 02/09/2024 [facility] DATE CREATED AUTHOR AUTHOR'S ORGANIZ ATION [facility]/01/20[facility] DATE CREATED AUTHOR AUTHOR'S ORGANIZ ATION 09/08/2024 [facility] DATE CREATED AUTHOR AUTHOR'S ORGANIZ ATION 09/13/2024 [facility] DATE CREATED AUTHOR AUTHOR'S ORGANIZ ATION 12/10/2024 [facility] DATE CREATED AUTHOR AUTHOR'S ORGANIZ ATION 12/29/2024 [facility] DATE CREATED AUTHOR AUTHOR'S ORGANIZ ATION 01/12/2025 [facility] [employer] Source Comments (unrecognize d section and content) In the event this informatio n is protected by the Federal Confidentiality of Alcohol and Drug Abuse Patient Records regulations: The Federal rules restrict any use of the information to criminally investigate or prosecute any alcohol or drug abuse patient.[facility] HealthIn the event this information is protected by the Federal Confidentiality of Alcohol and Drug Abuse Patient Records regulations: The Federal rules restrict any use of the information to criminally investigate or prosecute any alcohol or drug abuse patient.[facility] HealthIn the event this information is protected by the Federal Confidentiality of Alcohol and Drug Abuse Patient Records regulations: The Federal rules restrict any use of the information to criminally investigate or prosecute any alcohol or drug abuse patient.[facility] HealthIn the event this information is protected by the Federal Confidentiality of Alcohol and Drug Abuse Patient Records regulations: The Federal rules restrict any use of the information to criminally investigate or prosecute any alcohol or drug abuse patient.[facility] HealthIn the event this information is protected by the Federal Confidentiality of Alcohol and Drug Abuse Patient Records regulations: The Federal rules restrict any use of the information to criminally investigate or prosecute any alcohol or drug abuse patient.[facility] HealthIn the event this information is protected by the Federal Confidentiality of Alcohol and Drug Abuse Patient Records regulations: The Federal rules restrict any use of the information to criminally investigate or prosecute any alcohol or drug abuse patient.[facility] HealthIn the event this information is protected by the Federal Confidentiality of Alcohol and Drug Abuse Patient Records regulations: The Federal rules restrict any use of the information to criminally investigate or prosecute any alcohol or drug abuse patient.[facility] HealthIn the event this information is protected by the Federal Confidentiality of Alcohol and Drug Abuse Patient Records regulations: The Federal rules restrict any use of the information to criminally investigate or prosecute any alcohol or drug abuse patient.[facility] HealthIn the event this information is protected by the Federal Confidentiality of Alcohol and Drug Abuse Patient Records regulations: The Federal rules restrict any use of the information to criminally investigate or prosecute any alcohol or drug abuse patient.[facility] HealthIn the event this information is protected by the Federal Confidentiality of Alcohol and Drug Abuse Patient Records regulations: The Federal rules restrict any use of the information to criminally investigate or prosecute any alcohol or drug abuse patient.[facility] HealthIn the event this information is protected by the Federal Confidentiality of Alcohol and Drug Abuse Patient Records regulations: The Federal rules restrict any use of the information to criminally investigate or prosecute any alcohol or drug abuse patient.[facility] HealthIn the event this information is protected by the Federal Confidentiality of Alcohol and Drug Abuse Patient Records regulations: The Federal rules restrict any use of the information to criminally investigate or prosecute any alcohol or drug abuse patient.[facility] HealthIn the event this information is protected by the Federal Confidentiality of Alcohol and Drug Abuse Patient Records regulations: The Federal rules restrict any use of the information to criminally investigate or prosecute any alcohol or drug abuse patient.[facility] HealthIn the event this information is protected by the Federal Confidentiality of Alcohol and Drug Abuse Patient Records regulations: The Federal rules restrict any use of the information to criminally investigate or prosecute any alcohol or drug abuse patient.[facility] HealthIn the event this information is protected by the Federal Confidentiality of Alcohol and Drug Abuse Patient Records regulations: The Federal rules restrict any use of the information to criminally investigate or prosecute any alcohol or drug abuse patient.[facility] HealthIn the event this information is protected by the Federal Confidentiality of Alcohol and Drug Abuse Patient Records regulations: The Federal rules restrict any use of the information to criminally investigate or prosecute any alcohol or drug abuse patient.[facility] HealthIn the event this information is protected by the Federal Confidentiality of Alcohol and Drug Abuse Patient Records regulations: The Federal rules restrict any use of the information to criminally investigate or prosecute any alcohol or drug abuse patient.[facility] HealthIn the event this information is protected by the Federal Confidentiality of Alcohol and Drug Abuse Patient Records regulations: The Federal rules restrict any use of the information to criminally investigate or prosecute any alcohol or drug abuse patient.[facility] HealthIn the event this information is protected by the Federal Confidentiality of Alcohol and Drug Abuse Patient Records regulations: The Federal rules restrict any use of the information to criminally investigate or prosecute any alcohol or drug abuse patient.[facility] HealthIn the event this information is protected by the Federal Confidentiality of Alcohol and Drug Abuse Patient Records regulations: The Federal rules restrict any use of the information to criminally investigate or prosecute any alcohol or drug abuse patient.[facility] HealthIn the event this information is protected by the Federal Confidentiality of Alcohol and Drug Abuse Patient Records regulations: The Federal rules restrict any use of the information to criminally investigate or prosecute any alcohol or drug abuse patient.[facility] HealthIn the event this information is protected by the Federal Confidentiality of Alcohol and Drug Abuse Patient Records regulations: The Federal rules restrict any use of the information to criminally investigate or prosecute any alcohol or drug abuse patient.[facility] HealthIn the event this information is protected by the Federal Confidentiality of Alcohol and Drug Abuse Patient Records regulations: The Federal rules restrict any use of the information to criminally investigate or prosecute any alcohol or drug abuse patient.[facility] HealthIn the event this information is protected by the Federal Confidentiality of Alcohol and Drug Abuse Patient Records regulations: The Federal rules restrict any use of the information to criminally investigate or prosecute any alcohol or drug abuse patient.[facility] HealthIn the event this information is protected by the Federal Confidentiality of Alcohol and Drug Abuse Patient Records regulations: The Federal rules restrict any use of the information to criminally investigate or prosecute any alcohol or drug abuse patient.[facility] HealthIn the event this information is protected by the Federal Confidentiality of Alcohol and Drug Abuse Patient Records regulations: The Federal rules restrict any use of the information to criminally investigate or prosecute any alcohol or drug abuse patient.[facility] HealthIn the event this information is protected by the Federal Confidentiality of Alcohol and Drug Abuse Patient Records regulations: The Federal rules restrict any use of the information to criminally investigate or prosecute any alcohol or drug abuse patient.[facility] HealthIn the event this information is protected by the Federal Confidentiality of Alcohol and Drug Abuse Patient Records regulations: The Federal rules restrict any use of the information to criminally investigate or prosecute any alcohol or drug abuse patient.[facility] HealthIn the event this information is protected by the Federal Confidentiality of Alcohol and Drug Abuse Patient Records regulations: The Federal rules restrict any use of the information to criminally investigate or prosecute any alcohol or drug abuse patient.[facility] HealthIn the event this information is protected by the Federal Confidentiality of Alcohol and Drug Abuse Patient Records regulations: The Federal rules restrict any use of the information to criminally investigate or prosecute any alcohol or drug abuse patient.[facility] HealthIn the event this information is protected by the Federal Confidentiality of Alcohol and Drug Abuse Patient Records regulations: The Federal rules restrict any use of the information to criminally investigate or prosecute any alcohol or drug abuse patient.[facility] HealthIn the event this information is protected by the Federal Confidentiality of Alcohol and Drug Abuse Patient Records regulations: The Federal rules restrict any use of the information to criminally investigate or prosecute any alcohol or drug abuse patient.[facility] HealthIn the event this information is protected by the Federal Confidentiality of Alcohol and Drug Abuse Patient Records regulations: The Federal rules restrict any use of the information to criminally investigate or prosecute any alcohol or drug abuse patient.[facility] HealthIn the event this information is protected by the Federal Confidentiality of Alcohol and Drug Abuse Patient Records regulations: The Federal rules restrict any use of the information to criminally investigate or prosecute any alcohol or drug abuse patient.[facility] HealthIn the event this information is protected by the Federal Confidentiality of Alcohol and Drug Abuse Patient Records regulations: The Federal rules restrict any use of the information to criminally investigate or prosecute any alcohol or drug abuse patient.[facility] HealthIn the event this information is protected by the Federal Confidentiality of Alcohol and Drug Abuse Patient Records regulations: The Federal rules restrict any use of the information to criminally investigate or prosecute any alcohol or drug abuse patient.[facility] HealthIn the event this information is protected by the Federal Confidentiality of Alcohol and Drug Abuse Patient Records regulations: The Federal rules restrict any use of the information to criminally investigate or prosecute any alcohol or drug abuse patient.[facility] HealthIn the event this information is protected by the Federal Confidentiality of Alcohol and Drug Abuse Patient Records regulations: The Federal rules restrict any use of the information to criminally investigate or prosecute any alcohol or drug abuse patient.[facility] HealthIn the event this information is protected by the Federal Confidentiality of Alcohol and Drug Abuse Patient Records regulations: The Federal rules restrict any use of the information to criminally investigate or prosecute any alcohol or drug abuse patient.[facility] HealthIn the event this information is protected by the Federal Confidentiality of Alcohol and Drug Abuse Patient Records regulations: The Federal rules restrict any use of the information to criminally investigate or prosecute any alcohol or drug abuse patient.[facility] HealthIn the event this information is protected by the Federal Confidentiality of Alcohol and Drug Abuse Patient Records regulations: The Federal rules restrict any use of the information to criminally investigate or prosecute any alcohol or drug abuse patient.[facility] HealthIn the event this information is protected by the Federal Confidentiality of Alcohol and Drug Abuse Patient Records regulations: The Federal rules restrict any use of the information to criminally investigate or prosecute any alcohol or drug abuse patient.[facility] HealthIn the event this information is protected by the Federal Confidentiality of Alcohol and Drug Abuse Patient Records regulations: The Federal rules restrict any use of the information to criminally investigate or prosecute any alcohol or drug abuse patient.[facility] HealthIn the event this information is protected by the Federal Confidentiality of Alcohol and Drug Abuse Patient Records regulations: The Federal rules restrict any use of the information to criminally investigate or prosecute any alcohol or drug abuse patient.[facility] HealthIn the event this information is protected by the Federal Confidentiality of Alcohol and Drug Abuse Patient Records regulations: The Federal rules restrict any use of the information to criminally investigate or prosecute any alcohol or drug abuse patient.[facility] HealthIn the event this information is protected by the Federal Confidentiality of Alcohol and Drug Abuse Patient Records regulations: The Federal rules restrict any use of the information to criminally investigate or prosecute any alcohol or drug abuse patient.[facility] HealthIn the event this information is protected by the Federal Confidentiality of Alcohol and Drug Abuse Patient Records regulations: The Federal rules restrict any use of the information to criminally investigate or prosecute any alcohol or drug abuse patient.[facility] HealthIn the event this information is protected by the Federal Confidentiality of Alcohol and Drug Abuse Patient Records regulations: The Federal rules restrict any use of the information to criminally investigate or prosecute any alcohol or drug abuse patient.[facility] HealthIn the event this information is protected by the Federal Confidentiality of Alcohol and Drug Abuse Patient Records regulations: The Federal rules restrict any use of the information to criminally investigate or prosecute any alcohol or drug abuse patient.[facility] HealthIn the event this information is protected by the Federal Confidentiality of Alcohol and Drug Abuse Patient Records regulations: The Federal rules restrict any use of the information to criminally investigate or prosecute any alcohol or drug abuse patient.[facility] HealthIn the event this information is protected by the Federal Confidentiality of Alcohol and Drug Abuse Patient Records regulations: The Federal rules restrict any use of the information to criminally investigate or prosecute any alcohol or drug abuse patient.[facility] HealthIn the event this information is protected by the Federal Confidentiality of Alcohol and Drug Abuse Patient Records regulations: The Federal rules restrict any use of the information to criminally investigate or prosecute any alcohol or drug abuse patient.[facility] HealthIn the event this information is protected by the Federal Confidentiality of Alcohol and Drug Abuse Patient Records regulations: The Federal rules restrict any use of the information to criminally investigate or prosecute any alcohol or drug abuse patient.[facility] HealthIn the event this information is protected by the Federal Confidentiality of Alcohol and Drug Abuse Patient Records regulations: The Federal rules restrict any use of the information to criminally investigate or prosecute any alcohol or drug abuse patient.[facility] HealthIn the event this information is protected by the Federal Confidentiality of Alcohol and Drug Abuse Patient Records regulations: The Federal rules restrict any use of the information to criminally investigate or prosecute any alcohol or drug abuse patient.[facility] HealthIn the event this information is protected by the Federal Confidentiality of Alcohol and Drug Abuse Patient Records regulations: The Federal rules restrict any use of the information to criminally investigate or prosecute any alcohol or drug abuse patient.[facility] HealthIn the event this information is protected by the Federal Confidentiality of Alcohol and Drug Abuse Patient Records regulations: The Federal rules restrict any use of the information to criminally investigate or prosecute any alcohol or drug abuse patient.[facility] HealthIn the event this information is protected by the Federal Confidentiality of Alcohol and Drug Abuse Patient Records regulations: The Federal rules restrict any use of the information to criminally investigate or prosecute any alcohol or drug abuse patient.[facility] HealthIn the event this information is protected by the Federal Confidentiality of Alcohol and Drug Abuse Patient Records regulations: The Federal rules restrict any use of the information to criminally investigate or prosecute any alcohol or drug abuse patient.[facility] HealthIn the event this information is protected by the Federal Confidentiality of Alcohol and Drug Abuse Patient Records regulations: The Federal rules restrict any use of the information to criminally investigate or prosecute any alcohol or drug abuse patient.[facility] HealthIn the event this information is protected by the Federal Confidentiality of Alcohol and Drug Abuse Patient Records regulations: The Federal rules restrict any use of the information to criminally investigate or prosecute any alcohol or drug abuse patient.[facility] HealthIn the event this information is protected by the Federal Confidentiality of Alcohol and Drug Abuse Patient Records regulations: The Federal rules restrict any use of the information to criminally investigate or prosecute any alcohol or drug abuse patient.[facility] HealthIn the event this information is protected by the Federal Confidentiality of Alcohol and Drug Abuse Patient Records regulations: The Federal rules restrict any use of the information to criminally investigate or prosecute any alcohol or drug abuse patient.[facility] HealthIn the event this information is protected by the Federal Confidentiality of Alcohol and Drug Abuse Patient Records regulations: The Federal rules restrict any use of the information to criminally investigate or prosecute any alcohol or drug abuse patient.[facility] HealthIn the event this information is protected by the Federal Confidentiality of Alcohol and Drug Abuse Patient Records regulations: The Federal rules restrict any use of the information to criminally investigate or prosecute any alcohol or drug abuse patient.[facility] HealthIn the event this information is protected by the Federal Confidentiality of Alcohol and Drug Abuse Patient Records regulations: The Federal rules restrict any use of the information to criminally investigate or prosecute any alcohol or drug abuse patient.[facility] HealthIn the event this information is protected by the Federal Confidentiality of Alcohol and Drug Abuse Patient Records regulations: The Federal rules restrict any use of the information to criminally investigate or prosecute any alcohol or drug abuse patient.[facility] HealthIn the event this information is protected by the Federal Confidentiality of Alcohol and Drug Abuse Patient Records regulations: The Federal rules restrict any use of the information to criminally investigate or prosecute any alcohol or drug abuse patient.[facility] HealthIn the event this information is protected by the Federal Confidentiality of Alcohol and Drug Abuse Patient Records regulations: The Federal rules restrict any use of the information to criminally investigate or prosecute any alcohol or drug abuse patient.[facility] HealthIn the event this information is protected by the Federal Confidentiality of Alcohol and Drug Abuse Patient Records regulations: The Federal rules restrict any use of the information to criminally investigate or prosecute any alcohol or drug abuse patient.[facility] HealthIn the event this information is protected by the Federal Confidentiality of Alcohol and Drug Abuse Patient Records regulations: The Federal rules restrict any use of the information to criminally investigate or prosecute any alcohol or drug abuse patient.[facility] HealthIn the event this information is protected by the Federal Confidentiality of Alcohol and Drug Abuse Patient Records regulations: The Federal rules restrict any use of the information to criminally investigate or prosecute any alcohol or drug abuse patient.[facility] HealthIn the event this information is protected by the Federal Confidentiality of Alcohol and Drug Abuse Patient Records regulations: The Federal rules restrict any use of the information to criminally investigate or prosecute any alcohol or drug abuse patient.[facility] HealthIn the event this information is protected by the Federal Confidentiality of Alcohol and Drug Abuse Patient Records regulations: The Federal rules restrict any use of the information to criminally investigate or prosecute any alcohol or drug abuse patient.[facility] Reason for Visit (unrecogniz ed section and [...] COMPLEX 45 MINS Darien Olivarez MD [address] [facility] [address] [place] [address] [facility] [place] [address] [place] [address] Referral ID Status Reason Start Date Expiration Date V isits Requested Visits Authorized [id number] Closed Auto-Generate d Referral 05/04/2021 05/03/2022 1 1 Reason Comments Care Coordination Education Material Reason Comments Radiotherapy On-treatment Visit Specialty Diagnoses / Procedures Referred By Contac t Referred To Contact Diagnoses Cancer of base of tongue (HCC) Procedures CARBOPLATIN INJECTION Esdras Cash MD [address] [place] [address] [place] [address] [facility] [address] [place] [address] Referral ID Status Reason Start Date Expiration Date V isits Requested Visits Authorized [id number] Pending Review 08/05/2021 09/30/2021 8 8 Reason Comments Care Coordination C1D1 Post Treatment Call Reason Comments tongue cancer Reason Comments Nutrition Counseling Referral ID Status Reason Start Date Expiration Date V isits Requested Visits Authorized [id number] Authorized 08/05/2021 09/30/2021 8 8 Reason Comments oropharnyx cancer Reason Comments Cancer of base of tongue OTV Reason Comments Patient Update neuropathy Reason Comments Social Work Services Gas card program Referral ID Status Reason Start Date Expiration Date V isits Requested Visits Authorized [id number] Authorized 08/05/2021 10/31/2021 8 8 Reason Comments [...] ATTENUATION SKULL BASE MID-THIGH Esdras Cash MD [address] [place] [address] [place] [address] Molecular & Functional Imaging [address] [place] [address] Referral ID Status Reason Start Date Expiration Date V isits Requested Visits Authorized [id number] Closed Auto-Generate d Referral 11/20/2023 01/19/2024 1 1 Specialty Diagnoses / Procedures Referred By Contac t Referred To Contact MOLECULAR & FUNCTIONAL IMAGING Diagnoses Cancer of base of tongue (HCC) Procedures NM PET/CT SKULL-THIGH SUBSEQUENT PET IMAGING CT ATTENUATION SKULL BASE MID-THIGH Esdras Cash MD [address] [place] [address] [place] [address] Molecular & Functional Imaging [address] [place] [address] Referral ID Status Reason Start Date Expiration Date V isits Requested Visits Authorized [id number] Closed Auto-Generate d Referral OON/Self Pay Override 02/11/2023 03/13/2023 [address] Specialty Diagnoses / Procedures Referred By Contac t Referred To Contact CT IMAGING Diagnoses Oropharnyx cancer (HCC) Procedures CT CHEST W IVCON DIAGNOSTIC COMPUTED TOMOGRAPHY THORAX W/CONTRAST Kathrine Carpenter MD [address] [place] [address] [place] [address] [place] [address] Referral ID Status Reason Start Date Expiration Date V isits Requested Visits Authorized [id number] Closed Auto-Generate d Referral 07/16/2022 08/15/2023 1 1 Referral ID Status Reason Start Date Expiration Date V isits Requested Visits Authorized [id number] Closed Auto-Generate d Referral 04/14/2022 05/14/2022 [address] Specialty Diagnoses / Procedures Referred By Contac t Referred To Contact MOLECULAR & FUNCTIONAL IMAGING Diagnoses Oropharnyx cancer (HCC) Procedures NM PET/CT SKULL-THIGH SUBSEQUENT PET IMAGING CT ATTENUATION SKULL BASE MID-THIGH Kathrine Carpenter MD [address] [place] [address] [place] [address] Molecular & Functional Imaging [address] [id number] Referral ID Status Reason Start Date Expiration Date V isits Requested Visits Authorized [id number] Closed Auto-Generate d Referral 12/23/2021 01/22/2022 1 1 Specialty Diagnoses / Procedures Referred By Contac t Referred To Contact MOLECULAR & FUNCTIONAL IMAGING Diagnoses Malignant neoplasm of head, face and neck (HCC) Procedures NM PET/CT SKULL-THIGH SUBSEQUENT TUMOR IMAGING PET W/CONC CT SKULL-THIGH Kathrine Carpenter MD [address] [place] [address] [place] [address] Molecular & Functional Imaging [address] [place] [address] Referral ID Status Reason Start Date Expiration Date Visits Re quested Visits Authorized Closed 04/05/2021 05/05/2021 1 1 Reason Comments Pain Reason Onset Date Comments Med Refill 02/22/2024 Reason Comments Pain Reason Comments Follow-up Er f/u Reason Onset Date Comments Med Refill 03/01/2024 Reason Comments Med Refill Reason Onset Date Comments Refill Request 04/04/2024 Reason Comments Medicare Annual Wellness Visit [facility] Wellness Reason Comments Follow-up 6 month Specialty Diagnoses / Procedures Referred By Contac t Referred To Contact Cardiology Diagnoses PVD (peripheral vascular disease) ([facility]) Procedures Follow Up In Cardiology Carmen Neely MD [address] [facility] 2, [address] [address] Carmen Neely MD [address] [facility] [address], [address] [address] Referral ID Status Reason Start Date Expiration Date V isits Requested Visits Authorized [id number] Authorized 05/06/2023 05/05/2024 1 1 Reason Onset Date Comments Med Refill 12/31/2023 Reason Onset Date Comments Med Refill 01/05/2024 Reason Comments Follow-up Reason Onset Date Comments Order 05/12/2024 Reason Onset Date Comments Med Refill 05/26/2024 Reason Comments Follow-up Needs order for roll ator walker Reason Comments Pain New Patient Numbness Swelling Reason Comments Radio Gen A21 Specialty Diagnoses / Procedures Referred By Contac t Referred To Contact XR IMAGING Diagnoses Pain Procedures XR SHOULDER GENERAL 3V OR MORE AP/TRUE AP/OTHER RIGHT RADEX SHOULDER COMPLETE MINIMUM 2 VIEWS [place]bert Miguel MD [address] [place] [address] Phone: tel: fax: XR IMAGING [facility] Referral ID Status Reason Start Date Expiration Date V isits Requested Visits Authorized [id number] Closed Auto-Generate d Referral 06/07/2024 07/07/2025 1 1 Reason Onset Date Comments Med Refill 06/24/2024 Reason Onset Date Comments Med Refill 07/25/2024 Reason Onset Date Comments STROKE appt 07/26/2024 Reason Onset Date Comments Med Refill 08/24/2024 Reason Onset Date Comments Med Refill 09/06/2024 Reason Onset Date Comments Refill Request 09/06/2024 Reason Comments Follow-up Hospital f/up SOB Reason Comments Follow-up 6 month Follow up fo r Peripheral Vascular disease Specialty Diagnoses / Procedures Referred By Contac t Referred To Contact Cardiology Diagnoses PVD (peripheral vascular disease) ([facility]) Procedures Follow Up In Cardiology Carmen Neely MD [address] [place] [address] 2, [address] [address] Phone: tel: fax: Carmen Neely MD [address] [place] [address] 2, [address] [address] Phone: tel: fax: Referral ID Status Reason Start Date Expiration Date V isits Requested Visits Authorized [id number] Authorized 11/17/2023 11/16/2024 1 1 Reason Onset Date Comments Med Refill 09/19/2024 Reason Comments Follow-up 6m Back Pain Reason Onset Date Comments Med Refill 11/16/2024 Reason Comments 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 Pt had xrays with [place] back in july. Patient had injured his foot last February, saw dr. Lacy a couple months later. States foot got caught between car and cement barrier while getting gas one day. No treatments, patient reports still having pain and swelling. 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 SS: 12 Care Teams (unrecognized sec tion and content) Intake Manager Relationship Specialty Start Date End Date Gildadro Lacy [address] [place], [place] [id number] PCP - General Family Practice 07/16/20 Esdras Cash MD [address] [facility] [place] [address] Physician Hematology/Oncology 08/07/20 Nathaly Biggs, PREPRESS MANAGER.[facility] [address] [facility] [place] [address] Nurse Practitioner Hematology/Oncology 08/07/20 Cynthia Cutler, SCOTT [address] [facility] [place] [address] Specialty Systems Trainer Hematology/Oncology 08/07/20 Kathrine Carpenter MD [address] [facility] [place] [address] Physician Radiation Oncology 08/07/20 Intake Manager Relationship Specialty Start Date End Date Gildardo Lacy [address] [place] [address] PCP - General Family Practice 07/16/20 Esdras Cash MD [address] [facility] [place] [address] Physician Hematology/Oncology 08/07/20 Nathaly Biggs, PREPRESS MANAGER.ACCOUNT COORDINATOR [address] [facility] [place] [address] Nurse Practitioner Hematology/Oncology 08/07/20 Cynthia Cutler, SCOTT [address] [facility] [place] [address] Specialty Systems Trainer Hematology/Oncology 08/07/20 Kathrine Carpenter MD [address] [facility] [place] [address] Physician Radiation Oncology 08/07/20 Intake Manager Relationship Specialty Start Date End Date Gildardo Lacy [address] [place] [address] PCP - General Family Practice 07/16/20 Esdras Cash MD [address] [facility] [place] [address] Physician Hematology/Oncology 08/07/20 Nathaly Biggs, PREPRESS MANAGER.ACCOUNT COORDINATOR [address] [facility] [place] [address] Nurse Practitioner Hematology/Oncology 08/07/20 Cynthia Cutler, SCOTT [address] [facility] [place] [address] Specialty Systems Trainer Hematology/Oncology 08/07/20 Kathrine Carpenter MD [address] [facility] [place] [address] Physician Radiation Oncology 08/07/20 Intake Manager Relationship Specialty Start Date End Date Gildardo Lacy [address] [place] [address] PCP - General Family Practice 07/16/20 Esdras Cash MD [address] [facility] [address] [place], [place] [address] Physician Hematology/Oncology 08/07/20 Nathaly Biggs, PREPRESS MANAGER.[facility] [address] [facility] [address] [place], [place] [address] Nurse Practitioner Hematology/Oncology 08/07/20 Cynthia Cutler, RN [address] [facility] [place] [address] Specialty Systems Trainer Hematology/Oncology 08/07/20 Kathrine Carpenter MD [address] [facility] [place] [address] Physician Radiation Oncology 08/07/20 Intake Manager Relationship Specialty Start Date End Date [place] [address] PCP - General Family Practice 07/16/20 Esdras Cash MD [address] [facility] [place] [address] Physician Hematology/Oncology 08/07/20 Nathaly Biggs, PREPRESS MANAGER.[facility] [address] [facility] [place] [address] Nurse Practitioner Hematology/Oncology 08/07/20 Cynthia Cutler, SCOTT [address] [facility] [place] [address] Specialty Systems Trainer Hematology/Oncology 08/07/20 Kathrine Carpenter MD [address] [facility] [place] [address] Physician Radiation Oncology 08/07/20 Intake Manager Relationship Specialty Start Date End Date Reggie Gildardo Butler [address] [place] [address] PCP - General Family Practice 07/16/20 Esdras Cash MD [address] [facility] [place] [address] Physician Hematology/Oncology 08/07/20 Nathaly Biggs, PREPRESS MANAGER.ACCOUNT COORDINATOR [address] [facility] [place] [address] Nurse Practitioner Hematology/Oncology 08/07/20 Cynthia Cutler, SCOTT [address] [facility] [place] [address] Specialty Systems Trainer Hematology/Oncology 08/07/20 Kathrine Carpenter MD [address] [facility] [place] [address] Physician Radiation Oncology 08/07/20 Intake Manager Relationship Specialty Start Date End Date ShilpaGildardo villarreal [address] [place] [address] PCP - General Family Practice 07/16/20 Esdras Cash MD [address] [facility] [place] [address] Physician Hematology/Oncology 08/07/20 Nathaly Biggs, PREPRESS MANAGER.ACCOUNT COORDINATOR [address] [facility] [place] [address] Nurse Practitioner Hematology/Oncology 08/07/20 Cynthia Cutler, RN [address] [facility] [place] [address] Specialty Systems Trainer Hematology/Oncology 08/07/20 Kathrine Carpenter MD [address] [facility] [place] [address] Physician Radiation Oncology 08/07/20 Intake Manager Relationship Specialty Start Date End Date Gildardo Lacy [address] [place] [address] PCP - General Family Practice 07/16/20 Esdras Cash MD [address] [facility] [place] [address] Physician Hematology/Oncology 08/07/20 Nathaly Biggs, PREPRESS MANAGER.ACCOUNT COORDINATOR [address] [facility] [place] [address] Nurse Practitioner Hematology/Oncology 08/07/20 Cynthia Cutler, SCOTT [address] [facility] [place] [address] Specialty Systems Trainer Hematology/Oncology 08/07/20 Kathrine Carpenter MD [address] [facility] [place] [address] Physician Radiation Oncology 08/07/20 Intake Manager Relationship Specialty Start Date End Date Gildardo Lacy Carrie [address] [place] [address] PCP - General Family Practice 07/16/20 Esdras Cash MD [address] [facility] [facility] [place] [address] Physician Hematology/Oncology 08/07/20 Nathaly Biggs, PREPRESS MANAGER.ACCOUNT COORDINATOR [address] [facility] [place] [address] Nurse Practitioner Hematology/Oncology 08/07/20 Cynthia Cutler, SCOTT [address] [facility] [place] [address] Specialty Systems Trainer Hematology/Oncology 08/07/20 Kathrine Carpenter MD [address] [facility] [place] [address] Physician Radiation Oncology 08/07/20 Intake Manager Relationship Specialty Start Date End Date Gildardo Lacy [address] [place] [address] PCP - General Family Practice 07/16/20 Esdras Cash MD [address] [facility] [place] [address] Physician Hematology/Oncology 08/07/20 Nathaly Biggs, PREPRESS MANAGER.ACCOUNT COORDINATOR [address] [facility] [place] [address] Nurse Practitioner Hematology/Oncology 08/07/20 Cynthia Cutler, SCOTT [address] [facility] [place] [address] Specialty Systems Trainer Hematology/Oncology 08/07/20 Kathrnie Carpenter MD [address] [facility] [place] [address] Physician Radiation Oncology 08/07/20 Intake Manager Relationship Specialty Start Date End Date Gildardo Lacy [address] [place] [address] PCP - General Family Practice 07/16/20 Esdras Cash MD [address] [facility] [place] [address] Physician Hematology/Oncology 08/07/20 Nathaly Biggs, PREPRESS MANAGER.ACCOUNT COORDINATOR [address] [facility] [place] [address] Nurse Practitioner Hematology/Oncology 08/07/20 Cynthia Cutler, SCOTT [address] [facility] [place] [address] Specialty Systems Trainer Hematology/Oncology 08/07/20 Kathrine Carpenter MD [address] [facility] [place] [address] Physician Radiation Oncology 08/07/20 Intake Manager Relationship Specialty Start Date End Date Giladrdo Lacy [address] [facility] [place] [address] PCP - General Family Practice 07/16/20 Esdras Cash MD [address] [facility] [place] [address] Physician Hematology/Oncology 08/07/20 Nathaly Biggs, PREPRESS MANAGER.ACCOUNT COORDINATOR [address] [facility] [place] [address] Nurse Practitioner Hematology/Oncology 08/07/20 Cynthia Cutler, SCOTT [address] [facility] [place] [address] Specialty Systems Trainer Hematology/Oncology 08/07/20 Kathrine Carpenter MD [address] [facility] [place] [address] Physician Radiation Oncology 08/07/20 Intake Manager Relationship Specialty Start Date End Date Gildardo Lacy [address] [place] [address] PCP - General Family Practice 07/16/20 Esdras Cash MD [address] [facility] [place] [address] Physician Hematology/Oncology 08/07/20 Nathaly Biggs, PREPRESS MANAGER.ACCOUNT COORDINATOR [address] [facility] [place] [address] Nurse Practitioner Hematology/Oncology 08/07/20 Cynthia Cutler, SCOTT [address] [facility] [place] [address] Specialty Systems Trainer Hematology/Oncology 08/07/20 Kathrine Carpenter MD [address] [facility] [place] [address] Physician Radiation Oncology 08/07/20 Intake Manager Relationship Specialty Start Date End Date Gildardo Lacy [address] [facility] [place] [address] PCP - General Family Practice 07/16/20 Esdras Cash MD [address] [facility] [place] [address] Physician Hematology/Oncology 08/07/20 Nathaly Biggs, PREPRESS MANAGER.ACCOUNT COORDINATOR [address] [facility] [place] [address] Nurse Practitioner Hematology/Oncology 08/07/20 Cynthia Cutler, SCOTT [address] [facility] [place] [address] Specialty Systems Trainer Hematology/Oncology 08/07/20 Kathrine Carpenter MD [address] [facility] [place] [address] Physician Radiation Oncology 08/07/20 Intake Manager Relationship Specialty Start Date End Date Gildardo Lacy [address] [place] [address] PCP - General Family Practice 07/16/20 Esdras Cash MD [address] [facility] [place] [address] Physician Hematology/Oncology 08/07/20 Nathaly Biggs, PREPRESS MANAGER.ACCOUNT COORDINATOR [address] [facility] [place] [address] Nurse Practitioner Hematology/Oncology 08/07/20 Cynthia Cutler, SCOTT [address] [facility] [place] [address] Specialty Systems Trainer Hematology/Oncology 08/07/20 Kathrine Carpenter MD [address] [facility] [place] [address] Physician Radiation Oncology 08/07/20 Intake Manager Relationship Specialty Start Date End Date Gildardo Lacy [address] [place] [address] PCP - General Family Practice 07/16/20 Esdras Cash MD [address] [facility] [place] [address] Physician Hematology/Oncology 08/07/20 Nathaly Biggs, PREPRESS MANAGER.ACCOUNT COORDINATOR [address] [facility] [place] [address] Nurse Practitioner Hematology/Oncology 08/07/20 Cynthia Cutler, SCOTT [address] [facility] [place] [address] Specialty Systems Trainer Hematology/Oncology 08/07/20 Kathrine Carpenter MD [address] [facility] [place] [address] Physician Radiation Oncology 08/07/20 Intake Manager Relationship Specialty Start Date End Date Gildardo Lacy [address] [place] [address] PCP - General Family Practice 07/16/20 Esdras Cash MD [address] [facility] [place] [address] Physician Hematology/Oncology 08/07/20 Nathaly Biggs, PREPRESS MANAGER.ACCOUNT COORDINATOR [address] [facility] [place] [address] Nurse Practitioner Hematology/Oncology 08/07/20 Cynthia Cutler, RN [address] [facility] [place] [address] Specialty Systems Trainer Hematology/Oncology 08/07/20 Kathrine Carpenter MD [address] [facility] [place] [address] Physician Radiation Oncology 08/07/20 Intake Manager Relationship Specialty Start Date End Date Gildardo Lacy [address] [place] [address] PCP - General Family Practice 07/16/20 Esdras Cash MD [address] [facility] [place] [address] Physician Hematology/Oncology 08/07/20 Nathaly Biggs, PREPRESS MANAGER.ACCOUNT COORDINATOR [address] [facility] [place] [address] Nurse Practitioner Hematology/Oncology 08/07/20 Cynthia Cutler, RN [address] [facility] [place] [address] Specialty Systems Trainer Hematology/Oncology 08/07/20 Kathrine Carpenter MD [address] [facility] [place] [address] Physician Radiation Oncology 08/07/20 Intake Manager Relationship Specialty Start Date End Date Gildardo Lacy [address] [place] [address] PCP - General Family Practice 07/16/20 Esdras Cash MD [address] [facility] [place] [address] Physician Hematology/Oncology 08/07/20 Nathaly Biggs, PREPRESS MANAGER.[facility] [address] [facility] [place] [address] Nurse Practitioner Hematology/Oncology 08/07/20 Cynthia Cutler, SCOTT [address] [facility] [place] [address] Specialty Systems Trainer Hematology/Oncology 08/07/20 Kathrine Carpenter MD [address] [facility] [place] [address] Physician Radiation Oncology 08/07/20 Intake Manager Relationship Specialty Start Date End Date Gildardo Lacy [address] [place] [address] PCP - General Family Practice 07/16/20 Esdras Cash MD [address] [facility] [place] [address] Physician Hematology/Oncology 08/07/20 Nathaly Biggs, PREPRESS MANAGER.[facility] [address] [facility] [place] [address] Nurse Practitioner Hematology/Oncology 08/07/20 Cynthia Cutler, SCOTT [address] [facility] [place] [address] Specialty Systems Trainer Hematology/Oncology 08/07/20 Kathrine Carpenter MD [address] [facility] [place] [address] Physician Radiation Oncology 08/07/20 Intake Manager Relationship Specialty Start Date End Date Gildardo Lacy [address] [place] [address] PCP - General Family Practice 07/16/20 Esdras Cash MD [address] [facility] [place] [address] Physician Hematology/Oncology 08/07/20 Nathaly Biggs, PREPRESS MANAGER.[facility] [address] [facility] [place] [address] Nurse Practitioner Hematology/Oncology 08/07/20 Cynthia Cutler, SCOTT [address] [facility] [place] [address] Specialty Systems Trainer Hematology/Oncology 08/07/20 Kathrine Carpenter MD [address] [facility] [place] [address] Physician Radiation Oncology 08/07/20 Intake Manager Relationship Specialty Start Date End Date Gildardo Lacy [address] [place] [address] PCP - General Family Practice 07/16/20 Esdras Cash MD [address] [facility] [place] [address] Physician Hematology/Oncology 08/07/20 Nathaly Biggs, PREPRESS MANAGER.ACCOUNT COORDINATOR [address] [facility] [place] [address] Nurse Practitioner Hematology/Oncology 08/07/20 Cynthia Cutler, SCOTT [address] [facility] [place] [address] Specialty Systems Trainer Hematology/Oncology 08/07/20 Kathrine Carpenter MD [address] [facility] [place] [address] Physician Radiation Oncology 08/07/20 Intake Manager Relationship Specialty Start Date End Date Gildardo Lacy [address] [place] [address] PCP - General Family Practice 07/16/20 Esdras Cash MD [address] [facility] [place] [address] Physician Hematology/Oncology 08/07/20 Nathaly Biggs, PREPRESS MANAGER.[facility] [address] [facility] [place] [address] Nurse Practitioner Hematology/Oncology 08/07/20 Cynthia Cutler, RN [address] [facility] [address] [place], [place] [id number] Specialty Systems Trainer Hematology/Oncology 08/07/20 Kathrine Carpenter MD [address] [facility] [place] [address] Physician Radiation Oncology 08/07/20 Intake Manager Relationship Specialty Start Date End Date [place] [address] PCP - General Family Practice 07/16/20 Esdras Cash MD [address] [facility] [address] [place], [place] [address] Physician Hematology/Oncology 08/07/20 Nathaly Biggs, PREPRESS MANAGER.[facility] [address] [facility] [place] [address] Nurse Practitioner Hematology/Oncology 08/07/20 Cynthia Cutler, SCOTT [address] [facility] [place] [address] Specialty Systems Trainer Hematology/Oncology 08/07/20 Kathrine Carpenter MD [address] [facility] [place] [address] Physician Radiation Oncology 08/07/20 Amira Powell LSW Humidifier Attendant 09/16/21 Intake Manager Relationship Specialty Start Date End Date ShilpaGildardo villarreal [address] [place] [address] PCP - General Family Practice 07/16/20 Esdras Cash MD [address] [facility] [place] [address] Physician Hematology/Oncology 08/07/20 Nathaly Biggs, PREPRESS MANAGER.ACCOUNT COORDINATOR [address] [facility] [place] [address] Nurse Practitioner Hematology/Oncology 08/07/20 Cynthia Cutler, SCOTT [address] [facility] [place] [address] Specialty Systems Trainer Hematology/Oncology 08/07/20 Kathrine Carpenter MD [address] [facility] [place] [address] Physician Radiation Oncology 08/07/20 Amira Powell LSW Humidifier Attendant 09/16/21 Intake Manager Relationship Specialty Start Date End Date Gildardo Lacy [address] [place] [address] PCP - General Family Practice 07/16/20 Esdras Cash MD [address] [facility] [place] [address] Physician Hematology/Oncology 08/07/20 Nathaly Biggs, PREPRESS MANAGER.ACCOUNT COORDINATOR [address] [facility] [place] [address] Nurse Practitioner Hematology/Oncology 08/07/20 Cynthia Cutler, SCOTT [address] [facility] [place] [address] Specialty Systems Trainer Hematology/Oncology 08/07/20 Kathrine Carpenter MD [address] [facility] [place] [address] Physician Radiation Oncology 08/07/20 Amira Powell, REINALDO Humidifier Attendant 09/16/21 Intake Manager Relationship Specialty Start Date End Date Gildardo Lacy [address] [place] [address] PCP - General Family Practice 07/16/20 Esdras Cash MD [address] [facility] [place] [address] Physician Hematology/Oncology 08/07/20 Nathaly Biggs, PREPRESS MANAGER.ACCOUNT COORDINATOR [address] [facility] [place] [address] Nurse Practitioner Hematology/Oncology 08/07/20 Cynthia Cutler, SCOTT [address] [facility] [place] [address] Specialty Systems Trainer Hematology/Oncology 08/07/20 Kathrine Carpenter MD [address] [facility] [place] [address] Physician Radiation Oncology 08/07/20 Amira Powell LSW Humidifier Attendant 09/16/21 Intake Manager Relationship Specialty Start Date End Date Gildardo Lacy [address] [place] [address] PCP - General Family Practice 07/16/20 Esdras Cash MD [address] [facility] [place] [address] Physician Hematology/Oncology 08/07/20 Nathaly Biggs, PREPRESS MANAGER.ACCOUNT COORDINATOR [address] [facility] [place] [address] Nurse Practitioner Hematology/Oncology 08/07/20 Cynthia Cutler, SCOTT [address] [facility] [place] [address] Specialty Systems Trainer Hematology/Oncology 08/07/20 Kathrine Carpenter MD [address] [facility] [place] [address] Physician Radiation Oncology 08/07/20 Amira Powell LSW Humidifier Attendant 09/16/21 Intake Manager Relationship Specialty Start Date End Date Gildardo Lacy [address] [place] [address] PCP - General Family Practice 07/16/20 Esdras Cash MD [address] [facility] [place] [address] Physician Hematology/Oncology 08/07/20 Nathaly Biggs, ALEXY.ACCOUNT COORDINATOR [address] [facility] [place] [address] Nurse Practitioner Hematology/Oncology 08/07/20 Cynthia Cutler, SCOTT [address] [facility] [place] [address] Specialty Systems Trainer Hematology/Oncology 08/07/20 Kathrine Carpenter MD [address] [facility] [place] [address] Physician Radiation Oncology 08/07/20 Amira Powell LSW Humidifier Attendant 09/16/21 Intake Manager Relationship Specialty Start Date End Date Gildardo Lacy [address] [place] [address] PCP - General Family Practice 07/16/20 Esdras Cash MD [address] [facility] [place] [address] Physician Hematology/Oncology 08/07/20 Nathaly Biggs, PREPRESS MANAGER.ACCOUNT COORDINATOR [address] [facility] [place] [address] Nurse Practitioner Hematology/Oncology 08/07/20 Cynthia Cutler, RN [address] [facility] [place] [address] Specialty Systems Trainer Hematology/Oncology 08/07/20 Kathrine Carpenter MD [address] [facility] [place] [address] Physician Radiation Oncology 08/07/20 Amira Powell LSW Humidifier Attendant 09/16/21 Intake Manager Relationship Specialty Start Date End Date Gildardo Lacy [address] [place] [address] PCP - General Family Practice 07/16/20 Esdras Cash MD [address] [facility] [place] [address] Physician Hematology/Oncology 08/07/20 Nathaly Biggs, PREPRESS MANAGER.ACCOUNT COORDINATOR [address] [facility] [place] [address] Nurse Practitioner Hematology/Oncology 08/07/20 Cynthia Cutler, SCOTT [address] [facility] [place] [address] Specialty Systems Trainer Hematology/Oncology 08/07/20 Kathrine Carpenter MD [address] [facility] [place] [address] Physician Radiation Oncology 08/07/20 Amira Powlel LSW Humidifier Attendant 09/16/21 Intake Manager Relationship Specialty Start Date End Date Gildardo Lacy [address] [place] [address] PCP - General Family Practice 07/16/20 Esdras Cash MD [address] [facility] [address] [place], [place] [address] Physician Hematology/Oncology 08/07/20 Nathaly Biggs, PREPRESS MANAGER.[facility] [address] [facility] [place] [address] Nurse Practitioner Hematology/Oncology 08/07/20 Cynthia Cutler, RN [address] [facility] [place] [address] Specialty Systems Trainer Hematology/Oncology 08/07/20 Kathrine Carpenter MD [address] [facility] [place] [address] Physician Radiation Oncology 08/07/20 Amira Powell LSW Humidifier Attendant 09/16/21 Intake Manager Relationship Specialty Start Date End Date Gildardo Lacy [address] [facility] [place] [address] PCP - General Family Practice 07/16/20 Esdras Cash MD [address] [facility] [place] [address] Physician Hematology/Oncology 08/07/20 Nathaly Biggs, PREPRESS MANAGER.[facility] [address] [facility] [place] [address] Nurse Practitioner Hematology/Oncology 08/07/20 Cynthia Ctuler, SCOTT [address] [facility] [place] [address] Specialty Systems Trainer Hematology/Oncology 08/07/20 Kathrine Carpenter MD [address] [facility] [place] [address] Physician Radiation Oncology 08/07/20 Andre, Amira, SKIN PILER Humidifier Attendant 09/16/21 Intake Manager Relationship Specialty Start Date End Date ReggieGildardo [address] [place] [address] PCP - General Family Practice 07/16/20 Esdras Cash MD [address] [facility] [place] [address] Physician Hematology/Oncology 08/07/20 Nathaly Biggs, PREPRESS MANAGER.ACCOUNT COORDINATOR [address] [facility] [place] [address] Nurse Practitioner Hematology/Oncology 08/07/20 Cynthia Cutler, SCOTT [address] [facility] [place] [address] Specialty Systems Trainer Hematology/Oncology 08/07/20 Kathrine Carpenter MD [address] [facility] [place] [address] Physician Radiation Oncology 08/07/20 Amira Powell LSW Humidifier Attendant 09/16/21 Intake Manager Relationship Specialty Start Date End Date KalpanaGildardo stone [address] [place] [address] PCP - General Family Practice 07/16/20 Esdras Cash MD [address] [facility] [place] [address] Physician Hematology/Oncology 08/07/20 Nathaly Biggs, PREPRESS MANAGER.ACCOUNT COORDINATOR [address] [facility] [place] [address] Nurse Practitioner Hematology/Oncology 08/07/20 Cynthia Cutler, SCOTT [address] [facility] [place] [address] Specialty Systems Trainer Hematology/Oncology 08/07/20 Kathrine Carpenter MD [address] [facility] [place] [address] Physician Radiation Oncology 08/07/20 Amira Powell LSW Humidifier Attendant 09/16/21 Intake Manager Relationship Specialty Start Date End Date Gildardo Lacy [address] [place] [address] PCP - General Family Practice 07/16/20 Esdras Cash MD [address] [facility] [place] [address] Physician Hematology/Oncology 08/07/20 Nathaly Biggs, PREPRESS MANAGER.ACCOUNT COORDINATOR [address] [facility] [place] [address] Nurse Practitioner Hematology/Oncology 08/07/20 Cynthia Cutler, SCOTT [address] [facility] [place] [address] Specialty Systems Trainer Hematology/Oncology 08/07/20 Kathrine Carpenter MD [address] [facility] [place] [address] Physician Radiation Oncology 08/07/20 Amira Powell LSW Humidifier Attendant 09/16/21 Intake Manager Relationship Specialty Start Date End Date Gildardo Lacy [address] [place] [address] PCP - General Family Medicine 07/16/20 Esdras Cash MD [address] [facility] [place] [address] Physician Hematology/Oncology 08/07/20 Nathaly Biggs, PREPRESS MANAGER.ACCOUNT COORDINATOR [address] [facility] [place] [address] Nurse Practitioner Hematology/Oncology 08/07/20 Cynthia Cutler, RN [address] [facility] [place] [address] Specialty Systems Trainer Hematology/Oncology 08/07/20 Kathrine Carpenter MD [address] [place] [address] [place] [address] Physician Radiation Oncology 08/07/20 Amira Powell LSW Humidifier Attendant 09/16/21 Intake Manager Relationship Specialty Start Date End Date Gildardo Lacy [address] [place] [address] PCP - General Family Medicine 07/16/20 Esdras Cash MD [address] [place] [address] [place] [address] Physician Hematology/Oncology 08/07/20 Nathaly Biggs, PREPRESS MANAGER.[address] [place] [address] Nurse Practitioner Hematology/Oncology 08/07/20 Cynthia Cutler, SCOTT [address] [place] [address] [place] [address] Specialty Systems Trainer Hematology/Oncology 08/07/20 Kathrine Carpenter MD [address] [place] [address] [place] [address] Physician Radiation Oncology 08/07/20 Amira Powell LSW Humidifier Attendant 09/16/21 Intake Manager Relationship Specialty Start Date End Date Gildardo Lacy [address] [place] [address] PCP - General Family Medicine 07/16/20 Esdras Cash MD [address] [facility] [place] [address] Physician Hematology/Oncology 08/07/20 Nathaly Biggs, PREPRESS MANAGER.ACCOUNT COORDINATOR [address] [facility] [place] [address] Nurse Practitioner Hematology/Oncology 08/07/20 Cynthia Cutler, RN [address] [facility] [place] [address] Specialty Systems Trainer Hematology/Oncology 08/07/20 Kathrine Carpenter MD [address] [facility] [place] [address] Physician Radiation Oncology 08/07/20 Amira Powell LSW Humidifier Attendant 09/16/21 Intake Manager Relationship Specialty Start Date End Date Gildardo Lacy [address] [place] [address] PCP - General Family Medicine 07/16/20 Esdras Cash MD [address] [facility] [place] [address] Physician Hematology/Oncology 08/07/20 Nathaly Biggs, PREPRESS MANAGER.ACCOUNT COORDINATOR [address] [facility] [place] [address] Nurse Practitioner Hematology/Oncology 08/07/20 Cynthia Cutler, SCOTT [address] [facility] [place] [address] Specialty Systems Trainer Hematology/Oncology 08/07/20 Kathrine Carpenter MD [address] [facility] [place] [address] Physician Radiation Oncology 08/07/20 Amira Powell LSW Humidifier Attendant 09/16/21 Intake Manager Relationship Specialty Start Date End Date Gildardo Lacy [address] [place] [address] PCP - General Family Medicine 07/16/20 Esdras Cash MD [address] [facility] [place] [address] Physician Hematology/Oncology 08/07/20 Nathaly Biggs, PREPRESS MANAGER.[address] [place] [address] Nurse Practitioner Hematology/Oncology 08/07/20 Cynthia Cutler, RN [address] [place] [address] [place] [address] Specialty Systems Trainer Hematology/Oncology 08/07/20 Kathrine Carpenter MD [address] [place] [address] [place] [address] Physician Radiation Oncology 08/07/20 Amira Powell LSW Humidifier Attendant 09/16/21 Intake Manager Relationship Specialty Start Date End Date Gildardo Lacy [address] [facility] [place] [address] PCP - General Family Medicine 07/16/20 Esdras Cash MD [address] [place] [address] [place] [address] Physician Hematology/Oncology 08/07/20 Nathaly Biggs, PREPRESS MANAGER.[facility] [address] [place] [address] [place] [address] Nurse Practitioner Hematology/Oncology 08/07/20 Cynthia Cutler, SCOTT [address] [place] [address] [place] [address] Specialty Systems Trainer Hematology/Oncology 08/07/20 Kathrine Carpenter MD [address] [place] [address] [place] [address] Physician Radiation Oncology 08/07/20 Amira Powell LSW Humidifier Attendant 09/16/21 Intake Manager Relationship Specialty Start Date End Date Gildardo Lacy [address] [place] [address] PCP - General Family Medicine 07/16/20 Esdras Cash MD [address] [facility] [place] [address] Physician Hematology/Oncology 08/07/20 Nathaly Biggs, PREPRESS MANAGER.ACCOUNT COORDINATOR [address] [facility] [place] [address] Nurse Practitioner Hematology/Oncology 08/07/20 Cynthia Cutler, SCOTT [address] [facility] [place] [address] Specialty Systems Trainer Hematology/Oncology 08/07/20 Kathrine Carpenter MD [address] [facility] [place] [address] Physician Radiation Oncology 08/07/20 Amira Powell LSW Humidifier Attendant 09/16/21 Intake Manager Relationship Specialty Start Date End Date Gildardo Lacy [address] [place] [address] PCP - General Family Medicine 07/16/20 Esdras Cash MD [address] [facility] [place] [address] Physician Hematology/Oncology 08/07/20 Nathaly Biggs, PREPRESS MANAGER.ACCOUNT COORDINATOR [address] [facility] [place] [address] Nurse Practitioner Hematology/Oncology 08/07/20 Cynthia Cutler, RN [address] [facility] [place] [address] Specialty Systems Trainer Hematology/Oncology 08/07/20 Kathrine Carpenter MD [address] [facility] [place] [address] Physician Radiation Oncology 08/07/20 Amira Powell LSW Humidifier Attendant 09/16/21 Intake Manager Relationship Specialty Start Date End Date Gildardo Lacy [address] [place] [address] PCP - General Family Medicine 07/16/20 Esdras Cash MD [address] [place] [address] [place] [address] Physician Hematology/Oncology 08/07/20 Nathaly Biggs APRN.ACCOUNT COORDINATOR [address] [place] [address] [place] [address] Nurse Practitioner Hematology/Oncology 08/07/20 Kathrine Carpenter MD [address] [facility] [place] [address] Physician Radiation Oncology 08/07/20 Amira Powell LSW Humidifier Attendant 09/16/21 Intake Manager Relationship Specialty Start Date End Date Gildardo Lacy MD PCP - General 05/04/99 Intake Manager Relationship Specialty Start Date End Date Gildardo Lacy [address] [place] [address] PCP - General Family Medicine 07/16/20 Esdras Cash MD [address] [facility] [place] [address] Physician Hematology/Oncology 08/07/20 Nathaly Biggs, PREPRESS MANAGER.ACCOUNT COORDINATOR [address] [facility] [place] [address] Nurse Practitioner Hematology/Oncology 08/07/20 Kathrine Carpenter MD [address] [facility] [place] [address] Physician Radiation Oncology 08/07/20 Amira Powell, SKIN PILER Humidifier Attendant 09/16/21 Intake Manager Relationship Specialty Start Date End Date Gildardo Lacy [address] [place] [address] PCP - General Family Medicine 07/16/20 Esdras Cash MD [address] [facility] [place] [address] Physician Hematology/Oncology 08/07/20 Nathaly Biggs, PREPRESS MANAGER.ACCOUNT COORDINATOR [address] [facility] [place] [address] Nurse Practitioner Hematology/Oncology 08/07/20 Kathrine Carpenter MD [address] [facility] [place] [address] Physician Radiation Oncology 08/07/20 Amira Powell, SKIN PILER Humidifier Attendant 09/16/21 Intake Manager Relationship Specialty Start Date End Date Gildardo Lacy [address] [place], [place] [address] PCP - General Family Medicine 07/16/20 Esdras Cash MD [address] [facility] [place] [address] Physician Hematology/Oncology 08/07/20 Nathaly Biggs, PREPRESS MANAGER.ACCOUNT COORDINATOR [address] [facility] [place] [address] Nurse Practitioner Hematology/Oncology 08/07/20 Kathrine Carpenter MD [address] [facility] [place] [address] Physician Radiation Oncology 08/07/20 Amira Powell LSW Humidifier Attendant 09/16/21 Team Status: Active Member Role Status Dates Gildardo Lacy MD Primary Care Provider Active Team Status: Inactive Member Role Status Dates Gildardo Lacy MD Primary Care Provider Active S tart: September 08, 2023 End: September 08, 2023 Carmen Neely MD Attending Provider Active St art: September 08, 2023 End: September 08, 2023 Intake Manager Relationship Specialty Start Date End Date Gildardo Lacy [address] [place] [address] PCP - General Family Medicine 07/16/20 Esdras Cash MD [address] [facility] [place] [address] Physician Hematology/Oncology 08/07/20 Nathaly Biggs, PREPRESS MANAGER.ACCOUNT COORDINATOR [address] [facility] [address] [place], [place] [address] Nurse Practitioner Hematology/Oncology 08/07/20 Kathrine Carpenter MD [address] [facility] [place] [address] Physician Radiation Oncology 08/07/20 Amira Powell LSW Humidifier Attendant 09/16/21 Intake Manager Relationship Specialty Start Date End Date Gildardo Lacy [address] [place] [address] PCP - General Family Medicine 07/16/20 Esdras Cash MD [address] [facility] [place] [address] Physician Hematology/Oncology 08/07/20 Nathaly Biggs, ALEXY.ACCOUNT COORDINATOR [address] [facility] [place] [address] Nurse Practitioner Hematology/Oncology 08/07/20 Kathrine Carpenter MD [address] [facility] [place] [address] Physician Radiation Oncology 08/07/20 Amira Powell LSW Humidifier Attendant 09/16/21 Intake Manager Relationship Specialty Start Date End Date Gildardo Lacy [address] [place] [address] PCP - General Family Medicine 07/16/20 Esdras Cash MD [address] [facility] [place] [address] Physician Hematology/Oncology 08/07/20 Nathaly Biggs, PREPRESS MANAGER.ACCOUNT COORDINATOR [address] [facility] [place] [address] Nurse Practitioner Hematology/Oncology 08/07/20 Cynthia Cutler, SCOTT [address] [facility] [place] [address] Specialty Systems Trainer Hematology/Oncology 08/07/20 03/04/23 Kathrine Carpenter MD [address] [facility] [place] [address] Physician Radiation Oncology 08/07/20 Amira Powell LSW Humidifier Attendant 09/16/21 Intake Manager Relationship Specialty Start Date End Date Gildardo Lacy [address] [address] PCP - General Family Medicine 07/16/20 Esdras Cash MD [address] [place], [place] [address] [facility] [place] [address] Physician Hematology/Oncology 08/07/20 Nathaly Biggs APRN.ACCOUNT COORDINATOR [address] [facility] [place] [address] Nurse Practitioner Hematology/Oncology 08/07/20 Cynthia Cutler, SCOTT [address] [facility] [place] [address] Specialty Systems Trainer Hematology/Oncology 08/07/20 03/04/23 Kathrine Carpenter MD [address] [facility] [place] [address] Physician Radiation Oncology 08/07/20 Amira Powell LSW Humidifier Attendant 09/16/21 Intake Manager Relationship Specialty Start Date End Date Gildardo Lacy [address] [place] [address] PCP - General Family Medicine 07/16/20 Esdras Cash MD [address] [facility] [place] [address] Physician Hematology/Oncology 08/07/20 Nathaly Biggs, PREPRESS MANAGER.ACCOUNT COORDINATOR [address] [place] [address] [place] [address] Nurse Practitioner Hematology/Oncology 08/07/20 Cynthia Cutler, SCOTT [address] [place] [address] [place] [address] Specialty Systems Trainer Hematology/Oncology 08/07/20 03/04/23 Kathrine Carpenter MD [address] [place] [address] [place] [address] Physician Radiation Oncology 08/07/20 Amira Powell LSW Humidifier Attendant 09/16/21 Intake Manager Relationship Specialty Start Date End Date Gildardo Lacy [address] [facility] [place] [address] PCP - General Family Medicine 07/16/20 Esdras Cash MD [address] [place] [address] [place] [address] Physician Hematology/Oncology 08/07/20 Nathaly Biggs, PREPRESS MANAGER.ACCOUNT COORDINATOR [address] [place] [address] [place] [address] Nurse Practitioner Hematology/Oncology 08/07/20 Cynthia Cutler, SCOTT [address] [place] [address] [place] [address] Specialty Systems Trainer Hematology/Oncology 08/07/20 03/04/23 Kathrine Carpenter MD [address] [place] [address] [place] [address] Physician Radiation Oncology 08/07/20 Intake Manager Relationship Specialty Start Date End Date Gildardo Lacy [address] [place], [place] [address] PCP - General Family Medicine 07/16/20 Esdras Cash MD [address] [facility] [place] [address] Physician Hematology/Oncology 08/07/20 Nathaly Biggs APRN.ACCOUNT COORDINATOR [address] [facility] [place] [address] Nurse Practitioner Hematology/Oncology 08/07/20 Cynthia Cutler, SCOTT [address] [facility] [place] [address] Specialty Systems Trainer Hematology/Oncology 08/07/20 03/04/23 Kathrine Carpenter MD [address] [facility] [place] [address] Physician Radiation Oncology 08/07/20 Intake Manager Relationship Specialty Start Date End Date Gildardo Lacy MD [address] [place] [id number] PCP - General Cardiology 09/12/22 Intake Manager Relationship Specialty Start Date End Date Gildardo Lacy MD [address] [place] [address] PCP - General Cardiology 09/12/22 Intake Manager Relationship Specialty Start Date End Date Gildardo Lacy MD [address] [place] [address] PCP - General Cardiology 09/12/22 Intake Manager Relationship Specialty Start Date End Date Gildardo Lacy MD [address] [place] [address] PCP - General Cardiology 09/12/22 Intake Manager Relationship Specialty Start Date End Date Gildardo Lacy MD [address] [place] [address] PCP - General Cardiology 09/12/22 Intake Manager Relationship Specialty Start Date End Date Gildardo Lacy MD [address] [place] [address] PCP - General Cardiology 09/12/22 Intake Manager Relationship Specialty Start Date End Date Gildardo Lacy MD [address] [place] [address] PCP - General Cardiology 09/12/22 Intake Manager Relationship Specialty Start Date End Date Gildardo Lacy MD [address] [place] [address] PCP - General Cardiology 09/12/22 Intake Manager Relationship Specialty Start Date End Date Gildardo Lacy MD [address] [place] [address] PCP - General Cardiology 09/12/22 Intake Manager Relationship Specialty Start Date End Date Gildardo Lacy MD [address] [place] [address] PCP - General Cardiology 09/12/22 Intake Manager Relationship Specialty Start Date End Date Gildardo Lacy MD [address] [place] [address] PCP - General Cardiology 09/12/22 Intake Manager Relationship Specialty Start Date End Date Gildardo Lacy MD [address] [place] [address] PCP - General Cardiology 09/12/22 Intake Manager Relationship Specialty Start Date End Date Gildardo Lacy MD [address] [place], [place] [phone] PCP - General Family Medicine 07/16/20 Esdras Cash MD [address] [facility] [place] [address] Physician Hematology/Oncology 08/07/20 Nathaly Biggs APRN.ACCOUNT COORDINATOR [address] [facility] [place] [address] Nurse Practitioner Hematology/Oncology 08/07/20 Kathrine Carpenter MD [address] [facility] [place] [address] Physician Radiation Oncology 08/07/20 Amira Powell LSW Humidifier Attendant 09/16/21 Intake Manager Relationship Specialty Start Date End Date Gildardo Lacy MD [address] [place] [address] PCP - General Cardiology 09/12/22 Intake Manager Relationship Specialty Start Date End Date Gildardo Lacy MD [address] [place] [address] PCP - General Cardiology 09/12/22 Intake Manager Relationship Specialty Start Date End Date Gildardo Lacy MD [address] [place] [address] PCP - General Cardiology 09/12/22 Intake Manager Relationship Specialty Start Date End Date Gildardo Lacy MD [address] [place] [address] PCP - General Family Medicine 11/17/23 Intake Manager Relationship Specialty Start Date End Date Gildardo Lacy MD [address] [place] [address] PCP - General Cardiology 09/12/22 Intake Manager Relationship Specialty Start Date End Date Gildardo Lacy MD [address] [place] [address] PCP - General Cardiology 09/12/22 Intake Manager Relationship Specialty Start Date End Date Gildardo Lacy MD [address] [place] [address] PCP - General Cardiology 09/12/22 Intake Manager Relationship Specialty Start Date End Date Gildardo Lacy MD [address] [place] [address] PCP - General Cardiology 09/12/22 Intake Manager Relationship Specialty Start Date End Date Gildardo Lacy MD [address] [place] [address] PCP - General Cardiology 09/12/22 Intake Manager Relationship Specialty Start Date End Date Gildardo Lacy MD [address] [place] [address] PCP - General Cardiology 09/12/22 Intake Manager Relationship Specialty Start Date End Date Gildardo Lacy MD [address] [place] [address] PCP - General Cardiology 09/12/22 Intake Manager Relationship Specialty Start Date End Date Gildardo Lacy MD [address] [place] [address] PCP - General Cardiology 09/12/22 Intake Manager Relationship Specialty Start Date End Date Gildardo Lcay MD [address] [place], [place] [address] PCP - General Family Medicine 07/16/20 Esdras Cash MD [address] [facility] [place] [address] Physician Hematology/Oncology 08/07/20 Nathaly Biggs APRN.ACCOUNT COORDINATOR [address] [facility] [place] [address] Nurse Practitioner Hematology/Oncology 08/07/20 Kathrine Carpenter MD [address] [facility] [place] [address] Physician Radiation Oncology 08/07/20 Amira Powell LSW Humidifier Attendant 09/16/21 Cassie Hood PA [address] [facility] [place] [address] Family Medicine 05/24/24 Intake Manager Relationship Specialty Start Date End Date Gildardo Lacy MD [address] [place] [address] PCP - General Cardiology 09/12/22 Intake Manager Relationship Specialty Start Date End Date Gildardo Lacy MD [address] [place] [address] PCP - General Family Medicine 07/16/20 Esdras Cash MD [address] [facility] [place] [address] Physician Hematology/Oncology 08/07/20 Nathaly Biggs APRN.[facility] [address] [facility] [place] [address] Nurse Practitioner Hematology/Oncology 08/07/20 Kathrine Carpenter MD [address] [facility] [place] [address] Physician Radiation Oncology 08/07/20 Amira Powell LSW Humidifier Attendant 09/16/21 Cassie Hood PA [address] [address] [place] [address] Family Medicine 05/24/24 Intake Manager Relationship Specialty Start Date End Date Gildardo Lacy MD [address] [place] [address] PCP - General Family Medicine 07/16/20 Esdras Cash MD [address] [facility] [place] [address] Physician Hematology/Oncology 08/07/20 Nathaly Biggs PREPRESS MANAGER.ACCOUNT COORDINATOR [address] [facility] [place] [address] Nurse Practitioner Hematology/Oncology 08/07/20 Kathrine Carpenter MD [address] [facility] [place] [address] Physician Radiation Oncology 08/07/20 Amira Powell LSW Humidifier Attendant 09/16/21 Cassie Hood PA [address] [address] [place] [address] Family Medicine 05/24/24 Intake Manager Relationship Specialty Start Date End Date Gildardo Lacy MD [address] [place] [address] PCP - General Cardiology 09/12/22 Intake Manager Relationship Specialty Start Date End Date Gildardo Lacy MD [address] [place] [address] PCP - General Family Medicine 07/16/20 Esdras Cash MD [address] [facility] [place] [address] Physician Hematology/Oncology 08/07/20 Nathaly Biggs, PREPRESS MANAGER.ACCOUNT COORDINATOR [address] [facility] [place] [address] Nurse Practitioner Hematology/Oncology 08/07/20 Kathrine Carpenter MD [address] [facility] [place] [address] Physician Radiation Oncology 08/07/20 Amira Powell LSW Humidifier Attendant 09/16/21 Cassie Hood PA [address] [facility] [address] [place], [place] [address] Family Medicine 05/24/24 Intake Manager Relationship Specialty Start Date End Date Gildardo Lacy MD PCP - General Family Medicine 03/17/18 Intake Manager Relationship Specialty Start Date End Date Gildardo Lacy MD [address] [place] [address] PCP - General Cardiology 09/12/22 Intake Manager Relationship Specialty Start Date End Date Gildardo Lacy MD [address] [place] [address] PCP - General Cardiology 09/12/22 Intake Manager Relationship Specialty Start Date End Date Gildardo Lacy MD [address] [place] [address] PCP - General Cardiology 09/12/22 Intake Manager Relationship Specialty Start Date End Date Gildardo Lacy MD [address] [place] [address] PCP - General Cardiology 09/12/22 Gildardo Lacy MD [address] [place] [address] PCP - Devoted 09/01/24 Intake Manager Relationship Specialty Start Date End Date Gildardo Lacy MD [address] [place], [place] [address] PCP - General Family Medicine 07/16/20 Esdras Cash MD [address] [facility] [place] [address] Physician Hematology/Oncology 08/07/20 Nathaly Biggs APRN.ACCOUNT COORDINATOR [address] [facility] [place] [address] Nurse Practitioner Hematology/Oncology 08/07/20 Kathrine Carpenter MD [address] [facility] [place] [address] Physician Radiation Oncology 08/07/20 Amira Powell LSW Humidifier Attendant 09/16/21 Cassie Hood PA [address] [address] [place], [place] [address] Family Medicine 05/24/24 Intake Manager Relationship Specialty Start Date End Date Gildardo Lacy MD [address] [place] [address] PCP - General Cardiology 09/12/22 Gildardo Lacy MD [address] [place] [address] PCP - Devoted 09/01/24 Intake Manager Relationship Specialty Start Date End Date Gildardo Lacy MD [address] [place] [address] PCP - General Cardiology 09/12/22 Gildardo Lacy MD [address] [place] [address] PCP - Devoted 09/01/24 Intake Manager Relationship Specialty Start Date End Date Gildardo Lacy MD [address] [place] [address] PCP - General Family Medicine 11/17/23 Intake Manager Relationship Specialty Start Date End Date Gildardo Lacy MD [address] [place] [address] PCP - General Cardiology 09/12/22 Gildardo Lacy MD [address] [place] [address] PCP - Devoted 09/01/24 Intake Manager Relationship Specialty Start Date End Date Gildardo Lacy MD [address] [place] [address] PCP - General Cardiology 09/12/22 Gildardo Lacy MD [address] [place] [address] PCP - Devoted 09/01/24 Intake Manager Relationship Specialty Start Date End Date Gildardo Lacy MD [address] [place] [address] PCP - General Cardiology 09/12/22 Gildardo Lacy MD [address] [place] [address] PCP - Devoted 09/01/24 Intake Manager Relationship Specialty Start Date End Date Gildardo Lacy MD [address] [place] [address] PCP - General Cardiology 09/12/22 Gildardo Lacy MD [address] [place] [address] PCP - Devoted 09/01/24 Intake Manager Relationship Specialty Start Date End Date Gildardo Lacy MD [address] [place] [address] PCP - General Cardiology 09/12/22 Gildardo Lacy MD [address] [place] [address] PCP - Devoted 09/01/24 Intake Manager Relationship Specialty Start Date End Date Gildardo Lacy MD [address] [place] [address] PCP - General Cardiology 09/12/22 Gildardo Lacy MD [address] [place] [address] PCP - Devoted 09/01/24 Intake Manager Relationship Specialty Start Date End Date Gildardo Lacy MD [address] [place] [address] PCP - General Cardiology 09/12/22 Gildardo Lacy MD [address] [place] [address] PCP - Devoted 09/01/24 Intake Manager Relationship Specialty Start Date End Date Gildardo Lacy MD [address] [place] [address] PCP - General Cardiology 09/12/22 Gildardo Lacy MD [address] [place] [address] PCP - Devoted 09/01/24 Intake Manager Relationship Specialty Start Date End Date Gildardo Lacy MD [address] [place] [address] PCP - General Cardiology 09/12/22 Gildardo Lacy MD [address] [place] [address] PCP - Devoted 09/01/24 Intake Manager Relationship Specialty Start Date End Date Gildardo Lacy MD [address] [place] [address] PCP - General Cardiology 09/12/22 Gildardo Lacy MD [address] [place] [address] PCP - Devoted 09/01/24 Intake Manager Relationship Specialty Start Date End Date Gildardo Lacy MD [address] [place] [address] PCP - General Cardiology 09/12/22 Gildardo Lacy MD [address] [place] [address] PCP - Devoted 09/01/24 Intake Manager Relationship Specialty Start Date End Date Gildardo Lacy MD [address] [place] [address] PCP - General Family Medicine 07/16/20 Nathaly Biggs APRN.ACCOUNT COORDINATOR [address] [place] [address] [place] [address] Nurse Practitioner Hematology/Oncology 08/07/20 Kathrine Carpenter MD [address] [place] [address] [place] [address] Physician Radiation Oncology 08/07/20 Amira Powell LSW Humidifier Attendant 09/16/21 Cassie Hood PA [address] [facility] [address] [facility] [place] [address] Family Medicine 05/24/24 Intake Manager Relationship Specialty Start Date End Date Gildardo Lacy MD PCP - General Family Medicine 03/17/18 Intake Manager Relationship Specialty Start Date End Date Gildardo Lacy MD [address] [place] [address] PCP - General Cardiology 09/12/22 Gildardo Lacy MD [address] [place] [address] PCP - Devoted 09/01/24 Intake Manager Relationship Specialty Start Date End Date Gildardo Lacy MD [address] [place] [address] PCP - General Cardiology 09/12/22 Gildardo Lacy MD [address] [place] [address] PCP - Devoted 09/01/24 Goals (unrecognized section and content) Goals may be documented in a n alternate sectionNot on filedocumented as of this encounterNot on filedocumented as of this encounter FOR RECORDS PERTAINING TO PATIENTS WHO ARE [...] BE BASED ON THE PRIMARY CLINICAL RECORDS. [employer] provides no warranty or guarantee of the accuracy or completeness of information in this document.
[2025-02-06] MEDS: METHYLPREDNISOLONE SOD SUCC PF 125 MG/2 ML VIAL IVP (11:06)
--- NOTE | 2025-02-06 11:23 | XR_ITS ---
The [address] [address] Patient Name: ALEJO FLOYD MRN: [id number] date: 1960 Sex: M Assigned Patient Location: ER Current Patient Location: ER Accession/Order Number: [id number] Exam Date: 02/06/2025 11:25 Report Date: 02/06/2025 11:46 At the request of: CHARLENE ARANA Procedure: XR chest 1V XR chest 1V 02/06/2025 11:39 AM SIGNS AND SYMPTOMS: ^cough ^Y PROTOCOL: Frontal radiograph of the chest COMPARISON: 08/30/2024 FINDINGS: The trachea is midline. The heart and mediastinal structures are within normal limits. There is a small left-sided pleural effusion. There is linear scarring in the right mid chest which is unchanged. The lung parenchyma is clear. The bony thorax is intact. XR/XR chest 1V IMPRESSION: There is a small left-sided pleural effusion. There is linear scarring in the right mid chest which is unchanged. Impression dictated by: Fabiano Trujillo M.D. 02/06/2025 11:46 AM Dictation Location: [place] [address] Electronically authenticated by: [id number] Y Date: 02/06/2025 11:46
--- NOTE | 2025-02-06 11:30 | PC.NURSE ---
upon d/c pt complaining that he's been coughing lately and would like to be checked for Pneumonia. Dr Koroma aware.
== END 2025-02-06 12:11 | disposition home or self-care (01) ==
PROVIDERS: Emergency Provider Emergency Medicine; PCP Family Medicine
DX: M54.50 Low back pain, unspecified (principal); G89.29 Other chronic pain; F17.200 Nicotine dependence, unspecified, uncomplicated; Z79.82 Long term (current) use of aspirin; Z79.02 Long term (current) use of antithrombotics/antiplatelets; M48.56XA Collapsed vertebra, not elsewhere classified, lumbar region, initial encounter for fracture
CPT/HCPCS: 71045; 72131; 76376; 96374; 99284; J2919

== ENCOUNTER 2025-02-15 09:35 | Emergency (ER) | payer OTHER, SELFPAY ==
[2025-02-15] VITALS (24 sets, daily range): BP systolic 139–162; BP diastolic 79–118; PULSE 80–103; TEMP 36.6; O2SAT 92–100; BMI 17.2
--- NOTE | 2025-02-15 09:59 | ECG_ITS ---
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 Measurements Intervals [place] Rate: 94 P: 82 ME: 126 QRS: 79 QRSD: 92 T: 76 QT: 342 QTc: 394 Interpretive Statements 1100 Sinus rhythm [address] depression [address] & [place] abnormality 9150 abnormal ECG Compared to ECG 08/30/2024 14:59:31 ST (T wave) deviation now present Sinus tachycardia no longer present Electronically Signed On 02-15-2025 18:03:06 EDT by MELANI DE LEÓN M.D.
--- NOTE | 2025-02-15 10:13 | ED.WEAKNESS1 ---
HPI - Weakness General Chief complaint: Back Pain/Injury Stated complaint: HEAD/BACK PAIN, WEAK, NAUSEA Time Seen by Provider: 02/15/25 09:52 Source: patient and family Mode of arrival: Wheelchair Limitations: no limitations History of Present Illness HPI Narrative: The patient is 64-year-old male with history of laryngeal cancer, to the ER with a chronic back pain that been going on at least for the last few months, he was already evaluated for that almost 10 days ago he presented to the ER but he has been also been losing weight he had some nausea, and sometimes headache when moving around Patient denies any headache at the moment. The patient mentioned also he had no specific weakness he lives by himself after his was placed in the assisted and apparently he was able to manage his daily activities but he is going to live with his sister in [place] at the end of the month The patient denies any chest pain or any abdominal pain. He does not have any appetite. He has some nausea sometimes and some acid reflux, has any difficulty swallowing he mentioned that sometimes will feel that he is swallowing whenever he tried to eat. And there is some discomfort Related Data Home Medications ?Medication ?Instructions ?Recorded ?Confirmed omeprazole 40 mg capsule,delayed 40 mg PO DAILY 10/14/22 02/06/25 release zolpidem 10 mg tablet 10 mg PO DAILY PRN insomnia 10/14/22 02/06/25 aspirin 81 mg tablet,delayed 81 mg PO DAILY 07/23/24 02/06/25 release (Adult Low Dose Aspirin) atorvastatin 20 mg tablet 20 mg PO DAILY 07/25/24 02/06/25 topiramate 100 mg tablet (Topamax) 100 mg PO DAILY 07/25/24 02/06/25 fluticasone fur. 100 mcg-umeclid 1 inh inhalation DAILY 02/06/25 02/06/25 62.5 mcg-vilant 25 mcg inhalat.powder (Trelegy Ellipta) oxycodone-acetaminophen 5 mg-325 1 tab PO QID PRN pain 02/06/25 02/06/25 mg tablet Previous Rx's ?Medication ?Instructions ?Recorded clopidogrel 75 mg tablet 75 mg PO QD #30 tabs 07/26/24 albuterol sulfate 90 mcg/actuation 2 inh inhalation Q4H PRN shortness 09/01/24 aerosol inhaler of breath or wheezing #8.5 grams methocarbamol 750 mg tablet 750 mg PO Q6H PRN pain #30 tabs 02/06/25 methylprednisolone 4 mg tablets in 4 mg PO DAILY #21 ea 02/06/25 a dose pack (Medrol (Suresh)) Allergies Allergy/AdvReac Type Severity Reaction Status Date / Time No Known Drug Allergies Allergy Verified 02/15/25 09:42 Review of Systems ROS Status of ROS 10 or more systems reviewed and unremarkable except as noted in history and below [facility] Medical History (Updated 02/15/25 @ 13:07 by Jacqueline Jj MD) Acute hypoxic respiratory failure ?J96.01 - Acute respiratory failure with hypoxia (ICD-10) Cerebrovascular disease ?I67.9 - Cerebrovascular disease, unspecified (ICD-10) Benign essential hypertension ?I10 - Essential (primary) hypertension (ICD-10) Asthma exacerbation in COPD ?J44.1 - Chronic obstructive pulmonary disease with (acute) exacerbation (ICD-10) Hypoxemia ?R09.02 - Hypoxemia (ICD-10) Acute ischemic right BONY stroke ?I63.521 - Cerebral infarction due to unspecified occlusion or stenosis of right anterior cerebral artery (ICD-10) Peripheral arterial disease ?I73.9 - Peripheral vascular disease, unspecified (ICD-10) Occlusion of left internal carotid artery ?I65.22 - Occlusion and stenosis of left carotid artery (ICD-10) COPD (chronic obstructive pulmonary disease) ?J44.9 - Chronic obstructive pulmonary disease, unspecified (ICD-10) Chemotherapy-induced neuropathy ?G62.0 - Drug-induced polyneuropathy (ICD-10) ?T45.1X5A - Adverse effect of antineoplastic and immunosuppressive drugs, initial encounter (ICD-10) Macrocytic anemia ?D53.9 - Nutritional anemia, unspecified (ICD-10) Hyponatremia ?E87.1 - Hypo-osmolality and hyponatremia (ICD-10) Hypomagnesemia ?E83.42 - Hypomagnesemia (ICD-10) Bilateral carotid artery stenosis ?I65.23 - Occlusion and stenosis of bilateral carotid arteries (ICD-10) Pneumonia ?J18.9 - Pneumonia, unspecified organism (ICD-10) Contusion of multiple sites ?T07.XXXA - Unspecified multiple injuries, initial encounter (ICD-10) History of hypertension ?Z86.79 - Personal history of other diseases of the circulatory system (ICD-10) History of throat cancer ?Z85.819 - Personal history of malignant neoplasm of unspecified site of lip, oral cavity, and pharynx (ICD-10) Hx of supraventricular tachycardia ?Z86.79 - Personal history of other diseases of the circulatory system (ICD-10) History of emphysema ?J43.9 - Emphysema, unspecified (ICD-10) History of arthritis ?Z87.39 - Personal history of other diseases of the musculoskeletal system and connective tissue (ICD-10) Hx of TIA (transient ischemic attack) and stroke ?Z86.73 - Personal history of transient ischemic attack (TIA), and cerebral infarction without residual deficits (ICD-10) History of COPD ?Z87.09 - Personal history of other diseases of the respiratory system (ICD-10) Surgical History Hx of cholecystectomy ?Z90.49 - Acquired absence of other specified parts of digestive tract (ICD-10) 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 - Acquired absence of spleen (ICD-10) Hx of hernia repair ?Z98.890 - Other specified postprocedural states (ICD-10) ?Z87.19 - Personal history of other diseases of the digestive system (ICD-10) Social History (Updated 07/23/24 @ 23:38 by Magalys Meeks RN) Within the past year, how often did you have a drink containing alcohol: 4 or more times a week Within the past year, how many standard drinks containing alcohol did you have on a typical day: 10 or more Within the past year, how often did you have six or more drinks on one occasion: daily or almost daily Total score: 12 Score interpretation: A score of 4 or more indicates drinking is likely to affect patient's safety. Smoking status: Heavy tobacco smoker Highest level of school completed/degree received: some college, no degree Do you want help with school or training: No Little interest or pleasure in doing things: not at all Feeling down, depressed, or hopeless: not at all Exam Narrative Exam Narrative: Nurses notes and vital signs reviewed and patient is not hypoxic. General: Patient looks dehydrated and generally weak and cachectic. Skin: Warm, dry, no pallor noted. No rash. Head: Normocephalic, atraumatic. Scar in the right side of the neck mostly secondary to radiation therapy Neck: Supple, non-tender. Eye: Pupils are equal, round and EOMI. No scleral icterus. Ears, Nose, Mouth, and Throat: Mucous membranes Cardiovascular: Regular Rate and Rhythm without murmur, gallop or rub. Respiratory: No accessory muscle use or respiratory distress. Lungs are clear to auscultation, no wheezing, rales or rhonchi Chest Wall: no tenderness Back: No midline thoracic or lumbar vertebral tenderness. Patient have some sacral tenderness but there is no ecchymosis Musculoskeletal: normal ROM, no calf or popliteal tenderness, no lower extremity edema/swelling GI: Abdomen is soft, non-distended. Normal bowel sounds. No masses appreciated. No tenderness to palpation. No rebound, guarding, or rigidity noted. Neurological: A&O x4. No cranial nerve dysfunction observed. No truncal ataxia. Moves all extremities. Sensation intact. Psychiatric: Cooperative and interactive. Normal mood and affect. Constitutional Vital Signs, click to edit/add: Last Vital Signs Temp 97.8 F 02/15/25 09:42 Pulse 91 H 02/15/25 13:10 Resp 16 02/15/25 13:10 BP 158/84 H 02/15/25 13:00 Pulse Ox 99 02/15/25 13:10 O2 Del Method Room Air 02/15/25 09:42 Course Vital Signs Vital signs: Vital Signs Temperature 97.8 F 02/15/25 09:42 Pulse Rate 102 H 02/15/25 09:42 Respiratory Rate 18 02/15/25 09:42 Blood Pressure 139/118 H 02/15/25 09:42 Pulse Oximetry 100 02/15/25 09:42 Oxygen Delivery Method Room Air 02/15/25 09:42 Temperature 97.8 F 02/15/25 09:42 Pulse Rate 91 H 02/15/25 13:10 Respiratory Rate 16 02/15/25 13:10 Blood Pressure 158/84 H 02/15/25 13:00 Pulse Oximetry 99 02/15/25 13:10 Oxygen Delivery Method Room Air 02/15/25 09:42 MDM - Weakness MDM Narrative Medical decision making narrative: Patient EKG showing sinus rhythm with a heart rate of [address] elevation or depression It was noted that the patient is obviously cachectic and lost a lot of weight since last time he was evaluated he at least lost 7 kg since September of this year The patient generally was able to ambulate he is weak and tired but denies any dizziness at the moment, CBC and chemistry shows elevated BUN but otherwise showed no acute significant pathology Patient already had a CAT scan done showing L1 compression fracture almost 10 days ago Troponin repeated twice with negative The patient provide initially with p.o. fluid as he did not have any adequate IV access I did explain to the patient that his presentation with weight loss and decreased appetite with no specific pain or any finding that is significant on the blood workup does not require admission at the moment especially with the patient being able to manage his daily activities at home. But I did explain to him that he definitely need to reach out to his oncologist for another evaluation and PET scan The patient Dr. Han the oncologist taking care of him was called and he will reach out to the patient for another evaluation in the next few days The patient is to follow up with primary care physician in next 2-3 days or to return to the emergency department should any of the signs or symptoms worsen or new symptoms develop. The patient agrees with the following Diagnosis and Treatment plan and the patient will be discharged home. Patient also informed that his potassium was mildly low and he need to increase his dietary intake potassium Lab Data Labs: Lab Results 02/15/25 02/15/25 Range/Units 10:27 12:03 WBC 7.5 (4.0-11.0) 10^3/uL RBC 3.96 L (4.70-6.10) 10^6/uL Hgb 13.3 L (14.0-18.0) g/dL Hct 39.0 L (42.0-54.0) % MCV 98.5 H (80.0-94.0) fL MCH 33.6 (25.9-34.0) pg MCHC 34.1 (29.9-35.2) g/dL RDW 14.0 (11.0-15.0) % Plt Count 304 (150-450) 10^3/uL MPV 9.5 (9.5-13.5) fL Neut % (Auto) 75.9 H (43.0-75.0) % Lymph % (Auto) 14.1 L (20.5-60.0) % Hays % (Auto) 7.7 (1.7-12.0) % Eos % (Auto) 1.2 (0.9-7.0) % Baso % (Auto) 0.7 (0.2-2.0) % Neut # (Auto) 5.7 (1.4-6.5) 10^3/uL Lymph # (Auto) 1.1 L (1.2-3.8) 10^3/uL Hays # (Auto) 0.6 (0.3-0.8) 10^3/uL Eos # (Auto) 0.1 (0.0-0.7) 10^3/uL Baso # (Auto) 0.1 (0.0-0.1) 10^3/uL Abs Immat Gran (auto) 0.03 (0.00-0.03) 10^3/uL Imm/Tot Granulo (auto) 0.4 (0.0-0.5) % Sodium 143 (136-145) mmol/L Potassium 3.1 L (3.5-5.1) mmol/L Chloride 104 (98-107) mmol/L Carbon Dioxide 24.2 (21.0-32.0) mmol/L Anion Gap 17.9 BUN 24.0 H (7.0-18.0) mg/dL Creatinine 0.96 (0.70-1.30) mg/dL Est GFR ( Amer) >60 (>=60 mL/min/1.73m^2) Est GFR (Non-Af Amer) >60 (>=60 mL/min/1.73m^2) BUN/Creatinine Ratio 25.0 Glucose 86 (74-106) mg/dL Lactate 1.1 (0.4-2.0) mmol/L Calcium 9.1 (8.5-10.1) mg/dL Total Bilirubin 1.1 H (0.2-1.0) mg/dL AST 21 (15-37) U/L ALT 24 (16-63) U/L Alkaline Phosphatase 77 (46-116) U/L Troponin I High Sens 7.4 8.9 (4.0-76.1) pg/mL Total Protein 7.5 (6.4-8.2) g/dL Albumin 3.8 (3.4-5.0) g/dL Globulin 3.7 g/dL Albumin/Globulin Ratio 1.0 Discharge Plan Discharge Chief Complaint: Back Pain/Injury Clinical Impression: Excessive weight loss, Nausea Patient Disposition: Home, Self-Care Time of Disposition Decision: 13:07 Condition: Good Prescriptions / Home Meds: No Action omeprazole 40 mg capsule,delayed release(DR/EC) 40 mg PO DAILY zolpidem 10 mg tablet 10 mg PO DAILY PRN (Reason: insomnia) atorvastatin 20 mg tablet 20 mg PO DAILY topiramate [Topamax] 100 mg tablet 100 mg PO DAILY clopidogrel 75 mg Tablet 75 mg PO QD Qty: 30 2RF aspirin [Adult Low Dose Aspirin] 81 mg tablet,delayed release (DR/EC) 81 mg PO DAILY albuterol sulfate 90 mcg/actuation HFA aerosol inhaler 2 inh inhalation Q4H PRN (Reason: shortness of breath or wheezing) Qty: 8.5 0RF Trelegy Ellipta 100-62.5-25 mcg blister with device 1 inh INHALATION DAILY oxycodone-acetaminophen 5-325 mg tablet 1 tab PO QID PRN (Reason: pain) methylprednisolone [Medrol (Suresh)] 4 mg tablets,dose pack 4 mg PO DAILY Qty: 21 0RF methocarbamol 750 mg tablet 750 mg PO Q6H PRN (Reason: pain) Qty: 30 0RF Print Language: Pashto Instructions: Hypokalemia (ED), Anorexia (DC), Acute Nausea and Vomiting (ED) Additional Instructions: Please try reaching out to your oncologist for further evaluation Come back to the ER in case of any new symptoms Referrals: Gildardo Paredes MD [Primary Care Provider, Family Practice] - 1 week Discharge Date/Time: 02/15/25 13:29
[2025-02-15 10:44] LABS: Hematocrit 39.0 % (42.0-54.0); Hemoglobin 13.3 g/dL (14.0-18.0); Immature Granulocytes Abs Auto 0.03 10^3/uL (0.00-0.03); Immature Granulocytes Pct Auto 0.4 % (0.0-0.5); Lymphocytes Absolute Auto 1.1 10^3/uL (1.2-3.8); Mean Corpuscular HGB Conc 34.1 g/dL (29.9-35.2); Mean Corpuscular Hemoglobin 33.6 pg (25.9-34.0); Mean Corpuscular Volume 98.5 fL (80.0-94.0); Platelet Count 304 10^3/uL (150-450); Red Blood Count 3.96 10^6/uL (4.70-6.10); White Blood Count 7.5 10^3/uL (4.0-11.0)
[2025-02-15 10:49] LABS: Alanine Aminotransferase 24 U/L (16-63); Albumin Globulin Ratio 1.0; Albumin Level 3.8 g/dL (3.4-5.0); Alkaline Phosphatase 77 U/L (46-116); Anion Gap 17.9; Aspartate Amino Transferase 21 U/L (15-37); Blood Urea Nitrogen 24.0 mg/dL (7.0-18.0); Calcium 9.1 mg/dL (8.5-10.1); Carbon Dioxide 24.2 mmol/L (21.0-32.0); Chloride 104 mmol/L (98-107); Estimated GFR (African America >60 (>=60 mL/min/1.73m^2); Estimated GFR (Non-African Ame >60 (>=60 mL/min/1.73m^2); Globulin 3.7 g/dL; Glucose 86 mg/dL (74-106); Potassium 3.1 mmol/L (3.5-5.1); Sodium 143 mmol/L (136-145); Total Protein 7.5 g/dL (6.4-8.2)
--- NOTE | 2025-02-15 10:50 | XR_ITS ---
The [address] [address] Patient Name: ALEJO FLOYD MRN: [id number] date: 1960 Sex: M Assigned Patient Location: ER Current Patient Location: ER Accession/Order Number: [id number] Exam Date: 02/15/2025 10:58 Report Date: 02/15/2025 11:21 At the request of: ADAM NAVA MD Procedure: XR chest 1V PORTABLE AP ERECT CHEST 1042 hours CLINICAL HISTORY: Chronic cough. Hx of COPD COMPARISON: 02/06/2025 The heart is within normal limits. There is no vascular congestion. The lungs remain hyperinflated. There is minimal scarring or atelectasis. No developing consolidation is seen. There is still mild blunting of the left lateral costophrenic angle and pleural effusion is not excluded without a lateral view. There is no pneumothorax. The osseous structures are intact. Mild degenerative changes seen at the spine. There are hemostasis clips at the right neck. XR/XR chest 1V IMPRESSION: OBSTRUCTIVE LUNG DISEASE WITH MINOR CHRONIC CHANGE. NO ACUTE FINDINGS Impression dictated by: Gia Artis M.D. 02/15/2025 11:21 AM Dictation Location: [place] [address] Electronically authenticated by: [id number] Y Date: 02/15/2025 11:21
[2025-02-15 10:51] LABS: Lactate/Lactic Acid 1.1 mmol/L (0.4-2.0)
[2025-02-15] MEDS: 0.9 % SODIUM CHLORIDE 1,000 ML 500 ML IV (11:00)
[2025-02-15] MEDS: KETOROLAC TROMETHAMINE 30 MG/ML VIAL 15 MG IVP (11:00)
--- NOTE | 2025-02-15 11:51 | PC.NURSE ---
IV infiltrated at this time - IV removed and dressed, ice applied. many IV attempts. Informed Dr Jj. Pt given water, gatorade, crackers and jello.
== END 2025-02-15 13:29 | disposition home or self-care (01) ==
PROVIDERS: Emergency Provider Emergency Medicine; PCP Family Medicine
DX: R11.0 Nausea (principal); R64 Cachexia; Z85.21 Personal history of malignant neoplasm of larynx; Z68.1 Body mass index [BMI] 19.9 or less, adult
CPT/HCPCS: 36415; 71045; 80053; 83605; 84484; 85025; 93005; 96374; 99285; J1885

== ENCOUNTER 2025-02-27 13:39 | Outpatient (OUT) | payer OTHER, SELFPAY ==
--- OUTSIDE RECORDS SUMMARY | 2025-02-27 13:43 | XMS_ITS | Clinical Summary ---
Author Organization [facility] Address [address] [place] [address] Care Team Providers Care Dedenter Name Role Phone Gildardo Paredes MD Primary Care Provider [phone] Allergies No known active allergies Medications MedicationSigDispense QuantityRefillsLast FilledStart DateEnd DateStatus aspirin 81 mg EC tablet Take 81 mg by mouth in the morning.Active atorvastatin (Lipitor) 20 mg tablet Take 20 mg by mouth in the morning.Active metoprolol succinate XL (Toprol-XL) 25 mg 24 hr tablet Take 50 mg by mouth in the morning. Do not crush or chew.Active potassium chloride CR (Klor-Con M10) 10 mEq ER tablet Take 10 mEq by mouth in the morning. Do not crush or chew.Active oxyCODONE-acetaminophen (Percocet) 10-325 mg tablet Take 1 tablet by mouth every 6 (six) hours if needed for severe pain (8-10 pain score).Active clopidogrel (Plavix) 75 mg tablet Take 75 mg by mouth in the morning.Active fluticasone furoate-vilanteroL (Breo Ellipta) 100-25 mcg/dose inhaler Inhale 1 puff in the morning.Active omeprazole (PriLOSEC) [address] capsule Take 40 mg by mouth before breakfast. Do not crush or chew.Active albuterol 2.5 mg /3 mL (0.083 %) nebulizer solution Take 2.5 mg by nebulization every 6 (six) hours if needed for wheezing.Active topiramate (Topamax) 100 mg tablet Take 100 mg by mouth two times daily.Active albuterol 90 mcg/actuation inhaler Inhale 2 puffs every 6 (six) hours if needed for wheezing.Active megestrol (Megace) 400 mg/10 mL (40 mg/mL) suspension Take 20 mL by mouth in the morning. Shake well just before you measure a dose. Measure with a special dose-measuring spoon or medicine cup, not with a regular table spoon. If you do not have a dose-measuring device, ask your pharmacist for one.Active Active Problems ProblemNoted DateDiagnosed DateCarotid stenosis, right11/18/2024Symptomatic stenosis of right carotid nytvru0311/02/2024PAD (peripheral artery disease) 5Carotid stenosis, /02/2025Encounter for pre-operative lzaxqpgkzje35/02/2025 Encounters DateTypeDepartmentCare YcbqOscfbswsdui17/07/2025 10:30 AM EDTOffice Visit [facility] [address] [place] [id number] Bharati Chatman PA-C Carotid stenosis, bilateral (Primary Dx); PAD (peripheral artery disease)from Last 3 Months Social History Tobacco UseTypesPacks/DayYears UsedDateSmoking Tobacco: Every DayCigarettes Smokeless Tobacco: Never Tobacco Cessation:Ready to Q uit: No; Counseling Given: Yes Alcohol UseStandard Drinks/WeekCommentsYes0 (1 standard drink = 0.6 oz pure alcohol)daily 3-4 per dayPHQ-2AnswerDate RecordedPatient Health Questionnaire-2 Rhgbc125UT Safety & EnvironmentAnswerDate RecordedFear of Current or Ex-PartnerNot on file06/25/2023Emotionally AbusedNot on file06/25/2023hysically AbusedNot on file06/25/2023Sexually AbusedNot on file06/25/2023hysically or Sexually AbusedNot on file06/25/2023CommentsUnknownSex and Gender InformationValueDate RecordedSex Assigned at BirthChoose not to disclose 12/08/2024 10:13 AM EDTLegal TraOxze8710/31/2021 12:15 AM EDTGender IdentityChoose not to qdpsyfqn30/07/2025 10:13 AM EDTSexual OrientationChoose not to disclose 12/08/2024 10:13 AM EDT Last Filed Vital Signs Vital SignReadingTime TakenCommentsBlood Exqrnops340/9108 10:20 AM EDT Vfcyc979312/08/2024 10:20 AM WUYBbuujjgytjl44.7 ??C (98 ??F)11/15/2024 2:28 PM EDT Respiratory Dewk4114 10:20 AM EDTOxygen Yelyszscao03%12/08/2024 10:20 AM EDTInhaled Oxygen Concentration--Zdjyod86.9 kg (132 lb)12/08/2024 10:20 AM EDT Hlyteb797.1 cm (5' 5 )12/08/2024 10:20 AM EDTBody Mass Index21.9712/08/2024 10:20 AM EDT Plan of Treatment Health MaintenanceDue DateLast DoneCommentsCT Ujmfzdepuhhj17/18/1961Colonoscopy 1960olorectal Cancer Rbogfyowb85/18/1961FIT-DNA1960FIT1960 FOBT1960Medicare Annual Wellness (AWV)1960 4546Wsudtyrbjdqmz42/18/1961 Depression Taffgkhjs15/18/1973Pap Smear1981Cervical Cancer Screening 1990HPV/Crjlkl0809/18/19903772Ujashfeqf41/18/2001Meningococcal B Vaccine (2 of 4 - Increased Risk Bexsero 3-dose series)Meningococcal Vaccine (2 - Risk 2-dose series)Pneumococcal Vaccine: Pediatrics (0 to 5 Years) and At-Risk Patients (6 to 64 Years) (3 of 3 - PCV20 or PCV21) , 04/06/2017COVID-19 Vaccine ( season)2025 05/27/2023, 06/12/2022, 12/20/2020, Additional history existsInfluenza Vaccine (#1)51, 02/29/2024, 05/27/2023, Additional history existsAdult Ishvbfj28/28/715167/, 05/14/2018HIB EjqezcbiXqzgfatmy60/30/2018Zoster QxjrrkeuWbecaiqgb40/20/2024, 05/14/2018HPV VaccinesAged OutNo longer eligible based on patient's age to complete this topicIPV VaccinesAged OutNo longer eligible based on patient's age to complete this topicRotavirus VaccinesAged Out No longer eligible based on patient's age to complete this topic Insurance Advance Directives * Full Code (Latest Code Status on File) Date ActivatedDate InactivatedComments11/18/2024 11:06 AM11/18/2024 5:00 PM Care Teams Team MemberRelationshipSpecialtyStart DateEnd Date Gildardo Paredes MD [address] [place] [address] PCP - GeneralFamily Medicine10/06/23
--- OUTSIDE RECORDS SUMMARY | 2025-02-27 13:43 | XMS_ITS | Clinical Summary ---
Author Organization [facility] Address [address] [place] [address] Care Team Providers Care Asic Verification Engineer Name Role Phone Gildardo Paredes MD Primary Care Provider [phone] Gildardo Paredes MD Unavailable Allergies No known active allergies Medications MedicationSigDispense QuantityRefillsLast FilledStart DateEnd DateStatus omeprazole (PriLOSEC) [address] capsule Active metoprolol succinate XL (Toprol-XL) 25 MG 24 hr tablet Active aspirin 81 MG EC tablet Take 81 mg by mouth in the morning.Active DULoxetine (Cymbalta) [address] capsule Take 60 mg by mouth Daily4Active celecoxib (CeleBREX) 200 MG capsule Indications:Thoracic spondylosisTAKE 1 CAPSULE BY MOUTH TWICE DAILY WITH FOOD NEEDED for mild pain 60 capsule 4Active clopidogrel (Plavix) 75 MG tablet Take 75 mg by mouth Daily5Active zolpidem (Ambien) 10 MG tablet Indications:Primary insomniaTake 1 tablet (10 mg) by mouth as needed at bedtime for sleep 30 tablet 5Active albuterol (2.5 MG/3ML) 0.083% nebulizer solution Indications:Chronic obstructive pulmonary disease, unspecified COPD type (HCC) Take 3 mL (2.5 mg) by nebulization every 4 (four) hours if needed for wheezing or shortness of breath 75 mL 5Active atorvastatin (Lipitor) 20 MG tablet Indications:DyslipidemiaTake 1 tablet (20 mg) by mouth at bedtime 90 tablet 5Active megestrol (Megace) 40 MG/ML suspension Indications:Tongue cancer (HCC)Take 20 mL (800 mg) by mouth Daily Shake well just before you measure a dose. Measure with a special dose-measuring spoon or medicine cup, not with a regular table spoon. If you do not have a dose-jorge luis suring device, ask your pharmacist for one. 480 mL 5Active Fluticasone Furoate-Vilanterol (Breo Ellipta) 100-25 MCG/ACT aerosol powder Indications:Chronic obstructive pulmonary disease, unspecified COPD type (HCC) INHALE 1 PUFF BY MOUTH DAILY at the same time each day 60 each 5Active Dhgsqgmnwal-Zuotereql-Euqoov (Trelegy Ellipta) 100-62.5-25 MCG/ACT aerosol powder Indications:Chronic obstructive pulmonary disease, unspecified COPD type (HCC) Inhale 1 puff Daily 60 each 5Active methylPREDNISolone (Medrol Dospak) 4 MG tablets Indications:Metatarsalgia of left footTake as directed on package. 21 tablet 5Active albuterol HFA 90 mcg/act inhaler INHALE 2 PUFFS BY MOUTH EVERY 4 HOURS NEEDED for SHORTNESS OF BREATH 5Active Active Problems ProblemNoted DateDiagnosed DateDegeneration of intervertebral disc of lumbar region with discogenic back pain and lower extremity pain10/11/2024hronic hypoxic respiratory lbvhcht0509/08/2024 Assessment & Plan (10/11/2024 11:25 AM EDT): Refer to pulmonology. Assessment & Plan (09/08/2024 12:00 PM EDT): Recent hypoxia but today normal SpO2 on room air. Continue to monitor. Vvqvhr2108/03/2024 Assessment & Plan (08/03/2024 11:26 AM EDT): Reviewed [facility] stroke notes: multifocal infarct, Right BONY territory, recommend plavix 3 months (This would be up to and including 10/25/24) [facility] in [facility] 4 weeks and keep appts with Neurology Unsteady gait06/01/2024 Assessment & Plan (06/01/2024 1:49 PM EST): Worsening symptoms and weakness in legs. Very unsteady when up and moving. Will order rolling walker with seat to help complete ADLs around the house. Medicare annual wellness visit, /10/2024 Assessment & Plan (04/12/2024 1:41 PM EST): Reviewed labs. Discussed proper diet and regular aerobic exercise. Need aerobic exercise 5-6 days aweek for 30 minutes at a time. Smaller portions and limit total calories. Colonoscopy every 10 years. Tetanus every 10 years. Advised not to smoke. Discussed daily Aspirin therapy. Left foot pain04/12/2024bnormal TSH12/14/2023Essential praonnrflhjp83/19/2024 Assessment & Plan (10/11/2024 11:26 AM EDT): BP controlled and monitor PRN. Assessment & Plan (08/03/2024 6:25 AM EDT): Please check blood pressure daily and record DASH diet Limit caffeine Take medication as directed Contact office if chest pain, pressure, dizziness, shortness of breath, swelling legs Recommend slow position changes Current meds: metoprolol Assessment & Plan (10/21/2023 1:35 PM EDT): BP controlled and monitor PRN. Chemotherapy-induced peripheral srdabxhcmj63/19/2024 Assessment & Plan (06/01/2024 1:49 PM EST): Worsening symptoms and weakness in legs. Very unsteady when up and moving. Will order rolling walker with seat to help complete ADLs around the house. Assessment & Plan (10/21/2023 1:37 PM EDT): Symptoms stable and continue cymbalta. COPD (chronic obstructive pulmonary disease)10/21/2023 Assessment & Plan (10/11/2024 11:25 AM EDT): Continued SOB with exertion. Need to stop smoking. Refer to pulmonology. Assessment & Plan (09/08/2024 12:00 PM EDT): Recent exacerbation but improved. Complete steroids as directed. Use albuterol PRN. Assessment & Plan (06/01/2024 1:51 PM EST): Symptoms stable and continue inhalers. Assessment & Plan (02/29/2024 10:15 AM EDT): Recent exacerbation but improved. Resume breo and use albuterol PRN. Assessment & Plan (10/21/2023 1:35 PM EDT): Breathing stable and continue breo. Use albuterol PRN. MDD (major depressive disorder), recurrent episode, mild10/21/2023 Assessment & Plan (10/11/2024 11:26 AM EDT): Occasional symptoms but tolerable and continue cymbalta. Assessment & Plan (10/21/2023 1:36 PM EDT): Occasional symptoms but tolerable and continue cymbalta. Soxqxxbwjhv95/19/2024Thoracic ndfsssjoaet49/19/2024 Assessment & Plan (10/11/2024 11:26 AM EDT): Pain stable and continue percocet PRN. Assessment & Plan (10/21/2023 1:38 PM EDT): Pain stable and continue percocet PRN. Add celebrex. Primary hpjmpixc15/19/2024 Assessment & Plan (10/11/2024 11:26 AM EDT): Sleeping well with ambien and continue. Assessment & Plan (10/21/2023 1:36 PM EDT): Sleeping well with ambien and continue. Encounter for long-term (current) use of cndwmqqzcor66/19/2024Other fatigue 10/21/2023 Assessment & Plan (10/21/2023 1:36 PM EDT): C/o fatigue and check labs. Screening PSA (prostate specific antigen)10/21/20230081Udqcbsizhkqo73/19/2024 Assessment & Plan (08/03/2024 6:26 AM EDT): Is on statin therapy Check labs yearly and prn dose changes Follow heart healthy diet Occlusion of left internal carotid ygzmqm3207/01/2023 Assessment & Plan (10/11/2024 11:26 AM EDT): Follow with vascular. Assessment & Plan (08/03/2024 6:26 AM EDT): Follows with vascular Does take asa, statin, Allergic rhinitis due to qpniel8009/17/2022spiration into rhsnrb4709/17/2022 Gastroesophageal reflux disease with esophagitis without hzbtptnzpo63/17/2023 Internal derangement of right hofhbghi99/17/2023Metastasis to head and neck lymph node09/17/2022 Assessment & Plan (10/21/2023 1:36 PM EDT): Follow up with oncology. Mixed conductive and sensorineural hearing loss of right ear with restricted hearing of left ear3Pharyngeal mgvrdj0309/17/2022haryngoesophageal jvviuvcbx37/17/9406Zfefuuqj43/17/2023Tongue isdyym5209/17/2022 Assessment & Plan (10/11/2024 11:26 AM EDT): Follow with oncology. Assessment & Plan (06/01/2024 1:50 PM EST): Follow with oncology. Assessment & Plan (10/21/2023 1:37 PM EDT): Follow with oncology. Resolved Problems ProblemNoted DateDiagnosed DateResolved DateHistory of throat pjmafe7401/09/2025 02/13/20255115Cgjynxmnusarth10/08/202510/Left ventricular hypertrophy 09/08/Sequelae, post-bxjiew56Hypertension ICAO (internal carotid artery occlusion), left01/09/2025 02/13/2025Intracranial aneurysm ([facility])Encounter for pre- operative yysifiojwfl34PAD (peripheral artery disease) arotid stenosis, dyiugkwkq33Stenosis of right carotid ydwgcy78Pneumonia Assessment & Plan (09/08/2024 12:01 PM EDT): Symptoms improved and monitor. Mass of flirhc12Non-suppurative otitis media09/17/2022 10/21/2023Mass of kfrebtjkkh28 Encounters DateTypeDepartmentCare NpmsUzklsnswhtk01/09/2025 1:30 PM EDTOffice Visit [facility] [address] [place] [phone] Cal Shepherd DPM Metatarsalgia of left foot (Primary Dx); Closed displaced fracture of second metatarsal bone of left foot, sequela; Left foot pain; Equinus contracture of left ankle; Other synovitis and tenosynovitis, left ankle and foot01/10/2025amboo flowsheet [facility] [address] [place] [address] Cal Shepherd DPM 01/10/20256164Msfruk24/29/2025Telephone [facility] [address] [place] [address] Gildardo Paredes MD 12/27/2024bstract [facility] [address] [place] [address] Sandy Negrete, 12/21/2024 2:15 PM EDTConsult [facility] [address] [place] [address] Sandy Negrete DO Cigarette smoker (Primary Dx); Chronic obstructive pulmonary disease, unspecified COPD type (HCC); Chronic hypoxic respiratory failure (HCC)12/21/2024Telephone [facility] [address] [place] [address] Gildardo Paredes MD 5Bamboo flowsheet [facility] [address] [place] [address] Sandy Negrete, 5Clinisync Result Encounter [facility] External Department Unsolicited Provider, Generic External Data 12/13/2024Refill [facility] [address] [place] [address] Gildardo Paredes MD Chronic obstructive pulmonary disease, unspecified COPD type (HCC); DDD (degenerative disc disease), thoracicfrom Last 3 Months Immunizations ImmunizationAdministration DatesNext DueHib (PRP-T)01/31/2018Influenza, injectable, MDCK, preservative free, /24/2024Influenza, injectable, ueeagydtxivv34/04/2017Influenza, injectable, quadrivalent, preservative free02/18/2022,03/08/2021,03/09/2020,02/04/2019,01/27/2018 Influenza, seasonal, xrkwyqnfmi34/01/2020Influenza, seasonal, injectable, preservative free02/29/2024Meningococcal B, Omv01/31/2018Meningococcal MCV4O 01/31/2018PPD Test03/08/2018Pneumococcal Conjugate PCV 13001/31/2018Pneumococcal Polysaccharide JQJC946006/07/2016RSV, recombinant, protein subunit RSVpreF, adjuvant reconstitu, 120mcg/0.5mL, PF (Arexvy)07/22/20236472ELIH-AoX-7, Unspecified 12/20/2020,07/11/2020Tdap05/31/2024,05/14/2018Zoster, Npjpwedfkpy59/20/2024, 05/14/2018 Family History Medical HistoryRelationNameCommentsCancerFatherAnemiaMaternal GrandfatherVitamin B12 DeficiencyMaternal GrandfatherBrain AneurysmMotherDiabetesMotherRelationName StatusCommentsFatherDeceasedMaternal GrandfatherMotherDeceased Social History Tobacco UseTypesPacks/DayYears UsedDateSmoking Tobacco: Every DayCigarettes Smokeless Tobacco: Never Tobacco Cessation:Ready to Q uit: Not Asked; Counseling Given: Not Answered Comments:11-20 cigarettes a day Alcohol UseStandard Drinks/WeekCommentsYes0 (1 standard drink = 0.6 oz pure alcohol)Caffine intake: nonePHQ-2AnswerDate RecordedPatient Health Questionnaire-2 Nlnsz09806/13/2023Sex and Gender InformationValueDate RecordedSex Assigned at BirthNot on fileLegal VieKwsn2807/16/2022 9:49 PM EDTGender Identity Not on fileSexual OrientationNot on file Last Filed Vital Signs Vital SignReadingTime TakenCommentsBlood Egmwqxyf546/8412/21/2024 2:12 PM EDT Qdapw377012/21/2024 2:12 PM FSNZiuseivjhwn51.6 ??C (97.8 ??F)10/11/2024 10:39 AM EDTRespiratory Vatc057610/11/2024 10:39 AM EDTOxygen Etqxqcajok65%12/21/2024 2:12 PM EDT3L NCInhaled Oxygen Concentration--Nscpvv31.3 kg (133 lb)01/10/2025 1:28 PM XRWKflsnx228.8 cm (5' 10 )01/10/2025 1:28 PM EDTBody Mass Index19.08 01/10/2025 1:28 PM EDT Plan of Treatment Health MaintenanceDue DateLast DoneCommentsCT Lbyxmninfzaa12/18/1961FIT-DNA 1960FIT1960FOBT1960 8420Hnpdxkzqixtxq58/18/1961Influenza Vaccine (#1), 05/27/2023, 02/18/2022, Additional history exists Medicare Annual Wellness (AWV)/9588Vcacxoywkdu27/02/2030 04/04/2020Colorectal Cancer Zmlygqcep23/02/2030 Procedures Procedure NamePriorityDate/TimeAssociated DiagnosisCommentsCCF TSH W/REFLEX FT4 Novtxch7812/20/2024 1:25 PM EDT from Last 3 Months Results * [facility] TSH W/REFLEX FT4 (12/20/2024 1:25 PM EDT)ComponentValueRef RangeTest MethodAnalysis TimePerformed AtPathologist SignatureCCF TSH SERPL-ACNC2.120 0.270 - 4.200 mIU/LCCFSpecimen (Source)Anatomical Location / Laterality Collection Method / VolumeCollection TimeReceived Time12/20/2024 1:25 PM EDT 12/20/2024 10:25 PM EDT Narrative [facility] - 12/21/2024 10:39 AM EDT Specimen Type: BLOOD SPECIMEN Ordering Facility: [facility] ?Address: [address] [place] [address] Original Ordering Provider: Kathrine CARPENTER Authorizing ProviderResult TypeResult StatusGeneric External Data Provider CLINISYNCFinal ResultPerforming OrganizationAddressCity/State/ZIP CodePhone Number [facility] [address] [place], [place] [address] [place] [address] from Last 3 Months Insurance Care Teams Team MemberRelationshipSpecialtyStart DateEnd Date Gildardo Paredes MD [address] [place] [phone] PCP - GeneralCardiology09/12/22 Gildardo Paredes MD [address] [place] [address] PCP - Devoted09/01/24
--- OUTSIDE RECORDS SUMMARY | 2025-02-27 13:43 | XMS_ITS | Patient Health Record ---
Author Organization [facility] Address [address] [place] [id number] Care Team Providers Care Rn Obgyn Name Role Phone Reggie VO, Gildardo Primary Care Provider Neil Miguel Eddy Unavailable [phone] Allergies No Known Allergies Results Component Value Reference Range Notes MAGNESIUM Reviewed date:07/25/2024 09:14:18 PM Interpretation: Performing Lab: Notes/Report: [facility] , Magnesium 1.7 1.8-2.4 mg/dL Performing Lab:see note - [facility] LBPROF CHEM 8 (BAS METB) Reviewed date:07/26/2024 12:20:54 PM Interpretation: Performing Lab: Notes/Report: [facility] ,Ukibne294211-433 mmol/LPotassium4.43.5-5.1 mmol/ZAepvauyd55049-022 mmol/LCarbon Uatvrtv89.121.0-32.0 mmol/LAnion Gap15.6Gekktce80880-019 mg/dLBlood Urea Euykwrpq64.07.0-18.0 mg/dLCreatinine0.950.70-1.30 mg/dLEstimated GFR ( Kathy>60>=60 mL/min/1.73m 2Estimated GFR (Non- Melani>60>=60 mL/min/1.73m 2BUN Creatinine Ratio21.6Juxltcc0.38.5-10.1 mg/dLPerforming Lab:see noteML - [facility] LBMAGNESIUM Reviewed date:07/26/2024 12:20:54 PM Interpretation: Performing Lab: Notes/Report: [facility] ,Magnesium1.81.8-2.4 mg/dLPerforming Lab:see note - [facility] LB CBC AUTO DIFF Reviewed date:07/26/2024 12:20:54 PM Interpretation: Performing Lab: Notes/Report: [facility] ,White Blood Count5.84.0-11.0 10 3/uLRed Blood Count3.644.70-6.10 10 6/uL Lrmytmbcfu70.414.0-18.0 g/eCPscjmtohat37.942.0-54.0 %Mean Corpuscular Volume 101.480.0-94.0 fLMean Corpuscular Zkzbvlkfqu00.125.9-34.0 pgMean Corpuscular HGB Conc33.629.9-35.2 g/dLRed Cell Distribution Width13.511.0-15.0 %Platelet Count 795473-597 10 3/uLMean Platelet Volume9.29.5-13.5 fLNeutrophils Percent Auto65.3 43.0-75.0 %Lymphocytes Percent Auto21.020.5-60.0 %Monocytes Percent Auto11.51.7- 12.0 %Eosinophils Percent Auto1.00.9-7.0 %Basophils Percent Auto0.90.2-2.0 % Immature Granulocytes Pct Auto0.30.0-0.5 %Neutrophils Absolute Auto3.81.4-6.5 10 3/uLLymphocytes Absolute Auto1.21.2-3.8 10 3/uLMonocytes Absolute Auto0.70.3-0.8 10 3/uLEosinophils Absolute Auto0.10.0-0.7 10 3/uLBasophils Absolute Auto0.10.0- 0.1 10 3/uLImmature Granulocytes Abs Auto0.020.00-0.03 10 3/uLPerforming Lab:see noteML - [facility] LBCA echo doppler complete Reviewed date:07/25/2024 09:14:18 PM Interpretation: Performing Lab: Notes/Report: Source Facility: [facility]-[address] [place] [address] [place] [address] Cardiology Report Signed Patient: SEPIDEH FLOYD MR#: [id number] : 1960 Acct:[id number] Age/Sex: 63 / M ADM Date: 07/25/24 Loc: MS 215-[address]: Mac Umana M.D. Ordering Physician: Mac Umana M.D. Date of Service: 07/25/24 Procedure(s): CA echo doppler complete Accession Number(s): [id number] cc: Mac Umana M.D.; Gildardo Paredes M.D. Patient Name: SEPIDEH FLOYD MR#: [id number] : 1960 Exam Date: 07/25/2024 Ordering Doctor: DR MAC UMANA . ECHOCARDIOGRAM REPORT PROCEDURE: CA ECHO DOPPLER COMPLETE INDICATIONS: DyspneaCOPD, h/o throat cancer - chemotherapy, hypertension, h/o TIA and CVA COMPARISON: None. DESCRIPTION: COMPLETE ECHOCARDIOGRAM Real-time transthoracic echocardiography with 2D, M-mode, spectral and color flow Doppler performed. QUALITY: Technical quality was good. LEFT VENTRICLE: Normal chamber size. Mild concentric left ventricular hypertrophy. Systolic function is at the lower limits of normal. LV EF: Lower limits of normal left ventricular ejection fraction, (50-55%). DIASTOLIC: Diastolic function is indeterminate. ATRIAL SEPTUM: Visually appears intact. LEFT ATRIUM: Normal chamber size. RIGHT ATRIUM: Normal chamber size. RIGHT VENTRICLE: Normal chamber size. Normal right ventricular systolic function. TRICUSPID VALVE: Normal mobility and thickness. No stenosis with no regurgitation. Unable to assess right-sided pressures due to lack of measurable tricuspid regurgitation. MITRAL VALVE: Normal mobility and thickness. No evidence of mitral valve stenosis. There is no mitral annular calcification. Trivial mitral regurgitation. AORTIC VALVE: Normal trileaflet appearance. No visible sclerosis. Normal leaflet mobility. No evidence of aortic valve stenosis. No aortic regurgitation. AORTIC ROOT: Normal diameter and appearance. PULMONIC VALVE: Normal thickness and mobility. No stenosis. No regurgitation. PERICARDIUM: No evidence of pericardial effusion. IVC: IVC is normal in size, does not collapse. PLEURA: CONCLUSION: 1. Mild concentric left ventricular hypertrophy with low normal systolic function. LVEF is estimated at 50 to 55%. 2. Normal right ventricular size and systolic function. 3. No significant valvular dysfunction. 4. Unable to assess right-sided pressures due to lack of measurable tricuspid regurgitation. 5. No pericardial effusion. Adult Echocardiography Procedure Report Left Ventricle LVEDD (3.7 - 5.6 cm): 4.13 cm LVESD (2.2 - 4.0 cm): 2.66 cm LVIVS thickness (0.6 - 1.2 cm): 1.24 cm LVPW thickness (0.5 - 1.0 cm): 1.30 cm e': 0.06 m/s E - e': 6.85 LVOT Max Gradient: 2.46 mm[Hg] LVOT Area (cm2): 0.78 m/s Peak Velocity (LVOT): 0.78 m/s Mean Velocity (LVOT): 0.52 m/s LVOT Diameter 2.48 cm Left Atrium LA Volume Index (2D A2C): 31.41 ml/m2 Left Atrium Systolic Dimension: 3.46 cm Mitral Valve MV E to A Ratio: 0.55 Mitral Valve A-Wave Peak Velocity: 0.77 m/s Mitral Valve E-Wave Peak Velocity: 0.42 m/s Right Ventricle Aorta AO Root Diam: 3.37 cm Aortic Valve AoV Area (Peak Jose C): 4.14 cm2, 4.14 cm2 AoV Area (VTI): 4.11 cm2, 4.11 cm2 Peak Velocity(Antegrade Flow): 0.92 m/s Peak Gradient(Antegrade Flow): 3.36 mm[Hg] Mean Velocity(Antegrade Flow): 0.55 m/s Mean Gradient(Antegrade Flow): 1.42 mm[Hg] Velocity Time Integral: 18.03 cm Tricuspid Valve Pulmonic Valve Peak Velocity: 0.98 m/s Peak Gradient: 3.86 mm[Hg] Right Atrium Right Atrium Systolic Pressure: 34.09 ml, 34.09 ml Dictated by: Melani Brizuela M.D. on 07/25/2024 at 19:08 Approved by: Melani Brizuela M.D. on 07/25/2024 at 19:11 Dictated By: MELANI BRIZUELA Signed By: 07/25/241911 DD/ 10 TD/TT: Reliability Engineer: Reason For Referral No Information Medications Medication SIG (Take, Route, Frequency, Duration) Notes Start Date End Date Status Klor-Con Not-TakingWellbutrin XLActiveFluticasone PropionateActiveTopiramateUnknown Fluticasone Furoate-VilanterolActiveSodium ChlorideUnknownDULoxetine HClActive Sildenafil CitrateUnknownAmiodarone HClNot-TakingMetoprolol Succinate ERActive Albuterol Sulfate HFAActiveMeloxicamActiveAspirinActiveMagnesiumActiveLidocaine ActiveZolpidem TartrateUnknownBreo ElliptaActiveamLODIPine BesylateNot-Taking UxsjltitxzxDhnhfxEcoohellkh-GHO-UcyopdjgHhy-TakingProAir HFAActive oxyCODONE-AcetaminophenActive Social History Tobacco Use: Social History Observation Description Date Details (start date - stop date) Current Smoker NA - NA Tobacco Use/Smoking Question Answer Notes Patient is a current every day smoker Problems Problem Type SNOMED Code ICD Code Onset Dates Problem Status W/U Status Risk Notes Problem COPD - Chronic obstr uctive pulmonary disease (37156253) COPD (chronic obstructive pulmonary disease) (J44.9) ActiveconfirmedProblemBenign essential hypertension (9995839)Benign essential hypertension (I10)ActiveconfirmedProblemCerebrovascular disease (88576856) Cerebrovascular disease (I67.9)ActiveconfirmedProblemOcclusion and stenosis of multiple and bilateral cerebral arteries (635706875)Bilateral carotid artery stenosis (I65.23)ActiveconfirmedProblemMacrocytic anemia (98510662)Macrocytic anemia (D53.9)Activeconfirmed Encounters Encounter Location Date Provider Diagnosis Pulmonary Medicine [facility] [address] [place] [address] 10/13/2024 Miguel Corbett Plan Of Treatment No Information Insurance Providers Payer Name Payer Address Payer Phone Subscriber Number Group Number Insured Name Patient Relationship to Insured Coverage Start Date Coverage End Date [employer] MED[employer] ADV PLAN [address] [address] [place] [address] [id number] Cathy Floyd - patient is the insured Medical (General) History Medical History History ICD Code Arterial ischemic stroke, AC A (anterior cerebral artery), left, remote, resolved Z86.73 Current nicotine use Z72.0 Ankle pain, left M25.572 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
--- OUTSIDE RECORDS SUMMARY | 2025-02-27 13:44 | XMS_ITS | Clinical Summary ---
Author Organization [facility] Address [address], [address] [place] [address] Care Team Providers Care Head Of Stock Name Role Phone Gildardo Paredes MD Primary Care Provider + Allergies No known active allergies Medications MedicationSigDispense QuantityRefillsLast FilledStart DateEnd DateStatus albuterol (PROVENTIL) (2.5 MG/3ML) 0.083% nebulizer solution Take 3 mLs by nebulization every 6 hours as needed for Wheezing 120 each 02/15/2018Active amiodarone (CORDARONE) 200 MG tablet 1 tablet by PEG Tube route daily 7 tablet 02/16/2018Active ipratropium-albuterol (DUONEB) 0.5-2.5 (3) MG/3ML SOLN nebulizer solution Inhale 3 mLs into the lungs every 6 hours as needed for Shortness of Breath 210 mL 02/15/2018Active famotidine (PEPCID) 20 MG tablet Take 20 mg by mouth 2 times dailyActive Lactobacillus TABS Take 1 tablet by mouth 3 times dailyActive magnesium oxide (MAG-OX) 400 MG tablet Take 400 mg by mouth 2 times dailyActive melatonin 3 MG TABS tablet Take 3 mg by mouth nightly as neededActive metoclopramide (REGLAN) 5 MG tablet Take 5 mg by mouth 4 times dailyActive metoprolol tartrate (LOPRESSOR) 25 MG tablet Take 37.5 mg by mouth 2 times dailyActive oxyCODONE-acetaminophen (PERCOCET) 5-325 MG per tablet Take 1 tablet by mouth every 4 hours as needed for Pain..Active Potassium Chloride GRAN Take 10 mEq by mouth dailyActive amiodarone (CORDARONE) 200 MG tablet Take 200 mg by mouth dailyActive acetaminophen (TYLENOL) 500 MG tablet Take 500 mg by mouth every 6 hours as needed for PainActive albuterol (PROVENTIL) (2.5 MG/3ML) 0.083% nebulizer solution Take 2.5 mg by nebulization every 6 hours as needed for WheezingActive bisacodyl (DULCOLAX) [address] 10 mg rectally dailyActive metoclopramide (REGLAN) 5 MG tablet Take 5 mg by mouth dailyActive MULTIPLE MINERALS-VITAMINS PO Take by mouthActive Nutritional Supplements (PEPTAMEN AF PO) Take by mouthActive potassium chloride (MICRO-K) 10 MEQ extended release capsule Take 10 mEq by mouth 2 times dailyActive famotidine (PEPCID) 20 MG tablet Take 20 mg by mouth 2 times dailyActive magnesium oxide (MAG-OX) 400 MG tablet Take 400 mg by mouth 2 times dailyActive LACTOBACILLUS ACID-PECTIN PO Take by mouthActive melatonin 3 MG TABS tablet Take 3 mg by mouth dailyActive oxyCODONE-acetaminophen (PERCOCET) 5-325 MG per tablet Take 1 tablet by mouth every 4 hours as needed for Pain..Active Active Problems Patient Care Coordination No te Formatting of this note is d ifferent from the original. 01/20/13 Discharged due to not scheduling. Initial DSME Documentation: Grp 1 Grp 2 CHO Grp InitRN InitRD RD f/u Date RN f/u RN f/u RN f/u RN f/u RN f/u RD f/u Date F/U DSME Documentation: RN f/u RN f/u RD f/u RD f/u Date [facility] completed smoking 05/31/2015, [facility] completed HTN and smoking 07/31/2016 ProblemNoted DateDiagnosed McjdRuktwfrvrsqu78/12/2018Hypotension due to drugs 03/15/2018Closed compression fracture of L1 lumbar solydgax42/05/2018 Overview (10/11/2018): Replacing deprecated diagnoses Respiratory insufficiency/kwwvodk7902/03/2018 Overview (02/03/2023): Replacing diagnoses that were inactivated after the 02/01/2023 regulatory import Gkhpvwmx37/03/7563Typlpyaiuqtxf64/03/2018Atrial lawhfqkrhfzr27/03/2018Acute kidney badbpz8602/03/2018Evisceration of bowel02/03/2018Small bowel obstruction 09/02/20166339Kyxeugrp87/09/2016COPD (chronic obstructive pulmonary disease) 06/12/2015TIA (transient ischemic attack)06/12/2015Essential hypertension 05/31/20152521Uqudawa19/04/2015Recurrent incisional herniaElevated C-reactive protein (CRP)Intra-abdominal abscess Resolved Problems ProblemNoted DateDiagnosed DateResolved DateCecum asqmkdouvpy20/21/2018 02/03/2018Injury of spleen with zctfcdfh60L1 vertebral gnhstedy94Acute respiratory failure following trauma and akdlwde74Acute blood loss dpufxq50Alcohol adtascrdtw46Pleural nyjvhqan95 Rjkkuudmpjvimhdk69HemoperitoneumClosed fracture of first lumbar nmunvsgx45Closed fracture of spinous process of thoracic qqdyhqtz78Dizziness Ricnlldmoka47/24/Left sided ytghtcsd93/23/Abdominal pain, acute, autcqgzfwq65/23/Fecal ghvuyszlpnj06/03/2018Bandemia 02/03/20186111Nrezme35/03/2018 Immunizations ImmunizationAdministration DatesNext DueHib PRP-T, ACTHIB (age 2m-5y, Adlt Risk), HIBERIX (age 6w-4y, Adlt Risk), IM, 0.5mL01/31/2018Influenza, AFLURIA (age 3 y+), FLUZONE, (age 6 mo+), Quadv MDV, 0.5mL04/06/2017Influenza, Quadv, 6 mo and older, IM, PF (Flulaval, Fluarix)01/27/2018Meningococcal ACWY, MENVEO (MenACWY-CRM), (age 2m-55y), IM, 0.5mL01/31/2018Meningococcal B, BEXSERO, (age 10y-25y), IM, 0.5mL01/31/2018Pneumococcal, PCV-13, PREVNAR 13, (age 6w+), IM, 0.5mL01/31/2018Pneumococcal, PPSV23, PNEUMOVAX 23, (age 2y+), SC/IM, 0.5mL 04/06/2017 Family History Medical HistoryRelationNameCommentsHigh Blood PressureBrotherCancerMother DiabetesMotherHigh Blood PressureMotherStrokeMotheraneurysmHeart DiseaseNeg Hx RelationNameStatusCommentsBrotherFatherDeceasedMotherDeceased Social History Tobacco UseTypesPacks/DayYears UsedDateSmoking Tobacco: Every CupSumrtvdpxf067.2 Started: 01/01/1981Smokeless Tobacco: Never Tobacco Cessation:Counseling Given: No Alcohol UseStandard Drinks/TceoBbmymxaoUii60 (1 standard drink = 0.6 oz pure alcohol)3-6 beers per daySex and Gender InformationValueDate RecordedSex Assigned at BirthNot on fileLegal HheMnbf6006/14/2012 6:53 AM ESTGender Identity Not on fileSexual OrientationNot on file Last Filed Vital Signs Vital SignReadingTime TakenCommentsBlood Xwcpxaqt701/8311 12:58 PM EST Wuyjc114403/16/2018 12:58 PM NMFJqbzeeyixye27 ??C (98.6 ??F)03/11/2018 5:15 AM EST Respiratory Xbdt051705/11/2017 5:15 AM ESTOxygen Afxcnanoup81%03/15/2018 9:14 AM ESTInhaled Oxygen Concentration--Jywkri28.3 kg (144 lb)03/16/2018 12:58 PM EST Opxmbv272.5 cm (5' 9.5 )03/16/2018 12:58 PM ESTBody Mass Index20.9603/16/2018 12:58 PM EST Plan of Treatment Not on file Goals GoalPatient Goal TypeAssociated ProblemsRecent ProgressPatient-Stated?Author Blood Pressure < 140/90 Blood Ljkdhfnb716/83(03/16/2018 12:58 PM EST)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, [employer]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 - [employer] Insurance * Guarantor: Sepideh Cabrera TypeRelation to PatientDate of BirthPhone Billing AddressPersonal/RliwgwBlme66/[birth year][address] [address] Advance Directives * Full Code (Latest Code Status on File) Date ActivatedDate InactivatedComments01/19/2018 11:09 PM10 12:23 AM * Full Code Date ActivatedDate InactivatedComments09/01/2016 10:47 PM09/04/2016 2:37 PM * Full Code Date ActivatedDate InactivatedComments08/28/2016 11:08 AM08/28/2016 9:30 PM * Full Code Date ActivatedDate InactivatedComments06/12/2015 2:03 AM06/12/2015 6:07 PM * Full Code Date ActivatedDate InactivatedComments08/24/2012 3:13 PM08/25/2012 12:58 PM Care Teams Team MemberRelationshipSpecialtyStart DateEnd Date Gildardo Paredes MD [address] [place] [address] PCP - GeneralFamily Medicine01/27/18
--- OUTSIDE RECORDS SUMMARY | 2025-02-27 13:44 | XMS_ITS | Clinical Summary ---
Author Organization [facility] Address [id number] [address] [place] [address] Care Team Providers Care Manager Nuclear Name Role Phone Gildardo Paredes MD Primary Care Provider [phone] Allergies No known active allergies Medications MedicationSigDispense QuantityRefillsLast FilledStart DateEnd DateStatus acetaminophen (TYLENOL) 500 mg tablet Take 500 mg by mouth every 6 (six) hours as needed.Active amiodarone (PACERONE) 200 mg tablet Take 200 mg by mouth daily.Active metoclopramide (REGLAN) 5 mg tablet Take 5 mg by mouth daily.Active metoprolol tartrate (LOPRESSOR) 25 mg tablet Take 25 mg by mouth daily.Active oxyCODONE-acetaminophen (PERCOCET) 5-325 mg per tablet Take 1 tablet by mouth every 8 (eight) hours as needed.Active potassium chloride (K-DUR) 10 MEQ CR tablet Take 10 mEq by mouth daily.Active zolpidem (AMBIEN) 10 mg tablet 01/31/2019Active albuterol (PROVENTIL,VENTOLIN) 2.5 mg /3 mL (0.083 %) nebulizer solution 2.5 mg.Active albuterol (PROVENTIL HFA;VENTOLIN HFA) 90 mcg/actuation inhaler every 4 (four) hours.Active fluticasone furoate-vilanterol (BREO ELLIPTA) 100-25 mcg/dose blister with device daily.Active buPROPion XL (WELLBUTRIN XL) 300 mg 24 hr tablet daily.Active amLODIPine (NORVASC) 5 mg tablet daily.Active ciclopirox (PENLAC) 8 % solution APPLY SOLUTION TO TOENAILS HVUWNVI5608/23/2019Active SANTYL ointment Apply 1 application topically daily.09/07/2019Active omeprazole (PriLOSEC) 40 mg capsule Take 1 capsule (40 mg total) by mouth daily. 30 capsule ctive cilostazoL (PLETAL) 50 mg tablet Indications:Abnormal ankle brachial index (BRITTANY),PAD (peripheral artery disease), ClaudicationTake 1 tablet (50 mg total) by mouth in the morning and 1 tablet (50 mg total) before bedtime. 60 tablet 6008/15/2021ctive Active Problems ProblemNoted DateDiagnosed DateSequelae, post-oclrsl7401/09/2025Hypertension 01/09/20258233Urwuidkznziwdx82/08/2025Left ventricular tscybgenxpx06/08/2025ICAO (internal carotid artery occlusion), left01/09/2025hronic obstructive pulmonary pkmbuht5301/09/2025Intracranial sndufpuf50/08/2025History of throat cancer 01/09/2025PAD (peripheral artery disease)02/15/2021bnormal ankle brachial index (BRITTANY)09/21/2019 Overview (09/21/2019): Added automatically from request for surgery [id number] Resolved Problems ProblemNoted DateDiagnosed DateResolved DateNon-healing wound of left heel Overview (09/21/2019): Added automatically from request for surgery [id number] Family History Medical HistoryRelationNameCommentsDiabetesBrotherAortic aneurysmMotherBreast cancerMotherDiabetesMotherRelationNameStatusCommentsBrotherDeceasedFather DeceasedMotherDeceased Social History Tobacco UseTypesPacks/DayYears UsedDateSmoking Tobacco: Every DayCigarettes Smokeless Tobacco: Never Tobacco Cessation:Ready to Q uit: Yes; Counseling Given: Yes Comments:1 pack every 5 days reported 08/15/2021 Alcohol UseStandard Drinks/WeekCommentsNot Currently0 (1 standard drink = 0.6 oz pure alcohol)01/19/18, sober as can beChildcareAnswerDate RecordedChildcare Bitexkv5810/14/2018EmploymentAnswerDate RojawzlnBfdccolpdmWhwxezm13/13/2019Hunger ScreeningAnswerDate RecordedWithin the past 12 months we worried whether our food would run out before we got money to buy more.Never True11/02/2023Within the past 12 months the food we bought just didn't last and we didn't have money to get more.Never True11/02/2023urpose - LifeAnswerDate RecordedPurpose and direction in pfwfSocgoez49/15/2021ex and Gender InformationValueDate Recorded Sex Assigned at BirthNot on fileLegal ZfdYmmm85/14/2018 9:50 AM ESTGender IdentityNot on fileSexual OrientationNot on file Last Filed Vital Signs Vital SignReadingTime TakenCommentsBlood Wygnbshn948/31092 10:32 AM EDT Gplmb56816/01/2024 10:32 AM WRRBnzkhwbylgz03.5 ??C (99.5 ??F)11/02/2023 10:32 AM EDTRespiratory Dvsn393911/02/2023 10:32 AM EDTOxygen Azxojekkwy11%11/02/2023 10:32 AM EDTInhaled Oxygen Concentration--Yejubg02.9 kg (174 lb)11/02/2023 10:32 AM HGOArzprt407.8 cm (5' 10 )11/02/2023 10:32 AM EDTBody Mass Index24.9711/02/2023 10:32 AM EDT Plan of Treatment Health MaintenanceDue DateLast DoneCommentsStatin Use: Pwvwyqforgzsnk74[birth year]18/1961 Tobacco Rafgbjjqsu64/18/1961epression Gbuhxngjb02/18/7531Oukwrfbiyfs99/02/2023 04/04/2020Adult BMI Fvwiaciye12OVID-19 Vaccine ( season)501/, 06/12/2022, 12/20/2020, Additional history exists Influenza Zjvxrpy62, 05/27/2023, 02/18/2022, Additional history existsTobacco Gxdweoqox78/12/2024DTaP,Tdap and Td Vaccines (3 - Td or Tdap)501/, 05/14/2018Zoster (Shingles) VaccineCompleted 07/22/2023, 05/14/2018 Medical Devices ImplantedTypeAreaManufacturerDevice IdentifierShelf Expiration DateModel / Serial / LotStnt Vsc Innova [id number] Rpl [id number] - [id number] Implanted:Qty: 1 on 09/28/2019 [facility] SCIENT[facility]/PERIPHERAL [id number]/07/2021 [id number] / / [id number] Vsc Innova [id number] Rpl [id number] - [id number] - [id number] Implanted:Qty: 1 on 09/28/2019 [facility] [employer] SCIENTIFIC/PERIPHERAL I09/16/[id number] / [id number] / Care Teams Team MemberRelationshipSpecialtyStart DateEnd Date Gildardo Paredes MD PCP - GeneralFamily Npoehlzt09/14/18
--- OUTSIDE RECORDS SUMMARY | 2025-02-27 13:44 | XMS_ITS | Clinical Summary ---
Author Organization [facility] Address [address] [place] [address] Phone Care Team Providers Care Vacuum Frame Operator Name Role Phone Gildardo Paredes MD Primary Care Provider + Allergies No known active allergies Medications MedicationSigDispense QuantityRefillsLast FilledStart DateEnd DateStatus albuterol 90 mcg/actuation inhaler Inhale 2 puffs 3 times a day.Active albuterol 2.5 mg /3 mL (0.083 %) nebulizer solution Inhale.Active aspirin 81 mg EC tablet Take 1 tablet (81 mg) by mouth once daily.Active buPROPion XL (Wellbutrin XL) 300 mg 24 hr tablet Take 1 tablet (300 mg) by mouth once daily.Active DULoxetine (Cymbalta) [address] capsule Take 1 capsule (30 mg) by mouth once daily.Active fluticasone furoate-vilanteroL (Breo Ellipta) 100-25 mcg/dose inhaler Inhale.Active ipratropium-albuteroL (Duo-Neb) 0.5-2.5 mg/3 mL nebulizer solution Inhale.Active metoprolol succinate XL (Toprol-XL) 50 mg 24 hr tablet Take 1 tablet (50 mg) by mouth once daily.Active oxyCODONE-acetaminophen (Percocet) 5-325 mg tablet Take 1 tablet by mouth every 6 hours if needed.Active potassium chloride CR 10 mEq ER tablet Take 1 tablet (10 mEq) by mouth once daily.Active topiramate (Topamax) 50 mg tablet Take 1 tablet (50 mg) by mouth 2 times a day.Active zolpidem (Ambien) 10 mg tablet Take 1 tablet (10 mg) by mouth once daily at bedtime.Active atorvastatin (Lipitor) 20 mg tablet Take 1 tablet (20 mg) by mouth once daily.Active celecoxib (CeleBREX) 200 mg capsule Take 1 capsule (200 mg) by mouth 2 times a day.Active clopidogrel (Plavix) 75 mg tablet Indications:PVD (peripheral vascular disease),Hyperlipidemia, unspecified hyperlipidemia type,TIA (transient ischemic attack)Take 1 tablet (75 mg) by mouth once daily. 90 tablet 3:31 PM EDT/ctive Active Problems ProblemNoted DateDiagnosed VdktPtnsmk56/16/2024MI less than 19,adult11/17/2023 Hibqjngcjzmohn66/03/2024Abnormal EKG13Current wnpsgu4804/28/2023epression 04/28/20238252Ampuobm38/26/2023VD (peripheral vascular disease)04/28/2023TIA (transient ischemic attack)04/28/2023 Social History Tobacco UseTypesPacks/DayYears UsedDateSmoking Tobacco: Every DayCigarettes Smokeless Tobacco: Never Tobacco Cessation:Ready to Q uit: No; Counseling Given: Yes Alcohol UseStandard Drinks/WeekCommentsNever0 (1 standard drink = 0.6 oz pure alcohol)PHQ-2AnswerDate RecordedPatient Health Questionnaire-2 Nqrnq034 Sex and Gender InformationValueDate RecordedSex Assigned at BirthNot on file Legal SkhQxru75/25/2022 9:44 AM ESTGender IdentityNot on fileSexual Orientation Not on file Last Filed Vital Signs Vital SignReadingTime TakenCommentsBlood Jinurhnn544/7005 1:17 PM EDT Bfnqd931209/12/2024 1:17 PM EDTTemperature--Respiratory Rate--Oxygen Saturation-- Inhaled Oxygen Concentration--Rukhco73.3 kg (133 lb)09/12/2024 1:17 PM EDTHeight 177.8 cm (5' 10 )09/12/2024 1:17 PM EDTBody Mass Index19.0809/12/2024 1:17 PM EDT Plan of Treatment DateTypeDepartmentCare Team (Latest Contact Info)Xsxyuyiwxqe89/02/2026 2:00 PM ESTOffice Visit [facility] [address] [address] [place] [id number] Carmen Herrera MD [address] [facility] [address] [place] [address] Health MaintenanceDue DateLast DoneCommentsCT Gosyfzrfzvrs86/18/1961Colonoscopy 1Colorectal Cancer Eyjyivbkh14/18/1961FIT-DNA (Cologuard)1960FIT 1960HIV Ludwsqqus51/18/1961Lipid Panel1960Medicare Annual Wellness Visit (AWV)1960 0159Ddxtimatjkook05/18/1961MMR Vaccines (1 of 1 - Standard series)2Diabetes Yhhhaoqng44/18/1979Hepatitis C Eurtuythf99/18/1979PSA Prostate Cancer Ljahvvnso85/18/2006Pneumococcal Vaccine (3 of 3 - PCV20 or PCV21), 04/06/2017Influenza Vaccine (#1)2024 02/29/2024, 05/27/2023, 02/18/2022, Additional history existsCOVID-19 Vaccine (4 - 2024- season)5005/27/2023, 06/12/2022, 1DTaP/Tdap/Td Vaccines (3 - Td or Tdap)5005/31/2024, 05/14/2018HIB VaccinesAged Out 01/31/2018No longer eligible based on patient's age to complete this topic Meningococcal VaccineAged Out01/31/2018No longer eligible based on patient's age to complete this topicRSV High Risk: (Elderly (60+) or Population) Ujfbmweug29/20/2024Zoster DxpjsgwxLhktnkbyx74/20/2024, 05/14/2018HPV Vaccines Aged OutNo longer eligible based on patient's age to complete this topic Hepatitis A VaccinesAged OutNo longer eligible based on patient's age to complete this topicHepatitis B VaccinesAged OutNo longer eligible based on patient's age to complete this topicIPV VaccinesAged OutNo longer eligible based on patient's age to complete this topicRotavirus VaccinesAged OutNo longer eligible based on patient's age to complete this topic Insurance Care Teams Team MemberRelationshipSpecialtyStart DateEnd Date Gildardo Paredes MD [address] [place] [address] [facility] - [facility]/23
--- OUTSIDE RECORDS SUMMARY | 2025-02-27 13:49 | XMS_ITS | CCD ---
[facility] Team Providers Care Bonding Supervisor Name Role Phone ZEKE HASEEB W Unavailable Unavailable LESLIEKRISTINA, HASEEB W Unavailable Unavailable Agoro, Kamaldeen O Unavailable Unavailable AGORO, KAMALDEEN O Unavailable Unavailable NORMAN, KAMALDEEN O Unavailable Unavailable GILDARDO LACY Unavailable Unavailabl e RAYCHAUDHURI, RATUL Unavailable Unavailable ROYAL TAYLORHEL L Unavailable Unavailable MAC TAYLOR L Unavailable Unavailable GILDARDO LACY Unavailable Unavailabl e AOUAD, ROSLYN T Unavailable Unavailable JOSÉ, AMAIRANI M Unavailable Unavailable Gildardo Lacy Primary Care Provider Esdras Cash MD Unavailable [phone] Dian URRUTIANNathaly CALLEJAS Unavailable He CHAVEZ, Cynthia Unavailable Kathrine Carpenter MD Unavailable [phone] Amira Quinonez Unavailable Unavailable BONITA PITTMAN Primary Care Unavailable GILDARDO LACY Referring Unavailable CHARLES MORGAN Admitting Unavailable CHARLES MORGAN Attending Unavailable GILDARDO LACY Primary Care Unavailable CHARLENE ARANA Referring Unavailable MADHU YU Admitting Unavailable MADHU YU Attending Unavailable Gildardo Lacy Unavailable Unavailable Unavailable Gildardo Lacy Primary Care Provider Esdras Cash MD Unavailable Dian PERFUME MAKERNathaly FLORES Unavailable Sessler RN, Cynthia Unavailable Ron VO, G Сергей Unavailable [phone] Neely, Dr. Carmen Schneider Attending Sarah vailable Neely, Dr. Carmen Schneider Referring Sarah vailable Naderer, Dr. Gildardo Mccall Primary Care Unavai lable Naderer, Gildardo Butler Primary Care Provider He CHAVEZ, Cynthia Unavailable Naderer, Gildardo Butler Primary Care Provider Shailesh VO, Esdras Villarreal Unavailable [phone] Dian PERFUME MAKER.IMPACT RETAIL SERVICE MERCHANDISER, Nathaly Unavailable [phone] He RN, Cynthia Unavailable Ron VO, G Сергей Unavailable Amira Quinonez Unavailable Unavailable Naderer, Dr. Gildardo Mccall [facility] Ne[facility], Dr. Carmen Schneider Attending Sarah vailable Neely, Dr. Carmen Schneider Referring Sarah vailable Naderer, Dr. Gildardo Mccall Primary Care Unavai lable Neely, Dr. Carmen Schneider Attending Sarah vailable Neely, Dr. Carmen Schneider Referring Sarah vailable NADERER, DR GILDARDO Butler Primary Care Unavailable ODMINIC ., ELENI Admitting Unavailable COUCH, VINAYA Consulting Unavailable DOMINIC ., ELENI Attending Unavailable [...] NADERER, DR GILDARDO Butler Primary Care Unavailable FAWWAD, DE LEON H Attending Unavailable FAWWAD, DE LEON H Admitting Unavailable FAWWAD, DE LEON H Consulting Unavailable REGGIE, DR GILDARDO Butler Primary Care Unavailable FAWWAD, DE LEON H Admitting Unavailable FAWWAD, DE LEON H Attending Unavailable HOOD ., MR CASSIE Attending Unavailable TATUM ., MR MATTHEWS Admitting Unavailable REGGIE, DR GILDARDO Butler Primary Care Unavailable REGGIE, DR GILDARDO Butler Primary Care Unavailable DOMINIC ., ELENI Admitting Unavailable DOMINIC ., ELENI Attending Unavailable DOMINIC ., ELENI Consulting Unavailable RASTEGAR, EMILY Consulting Unavailable He CHAVEZ, Cynthia Unavailable Gildardo Lacy MD Primary Care Provider Gildardo Lacy Primary Care Provider MD Gildardo Lacy Primary Care Provider [phone] MD Carmen Neely Attending Provider [phone] GILDARDO LACY Primary Care Unavailable He CHAVEZ, Cynthia Unavailable Gildardo Lacy MD Primary Care Provider Carmen Neely Attending Unavailable Carmen Neely Admitting Unavailable Gildardo Lacy Primary Care Unavailable Gildardo Lacy MD Primary Care Provider Gildardo Lacy MD Primary Care Provider Cassie Crum Unavailable Gildardo Lacy MD Primary Care Provider GILDARDO LACY Primary Care Unavailable NADEREGILDARDO Villarreal Primary Care Unavailable NEELEREGILDARDO Villarreal Referring Unavailable NEELERER, GILDARDO Primary Care Unavailable NADERER, GILDARDO Referring Unavailable NADERER, GILDARDO Primary Care Unavailable NADEREPhil, GILDARDO Referring Unavailable NADERER, GILDARDO Primary Care Unavailable NADERER, GILDARDO Referring Unavailable NADERER, GILDARDO Primary Care Unavailable NADERER, GILDARDO Referring Unavailable NEELERER, GILDARDO Primary Care Unavailable Gildardo Lacy MD Unavailable LAURO, EHAD Attending Unavailable GILDARDO LACY Referring Unavailable REGGIE, GILDARDO Primary Care Unavailable CARMEN NEELY Attending Unavailable CARMEN NEELY Referring Unavailable NADGILDARDO DACOSTA Primary Care Unavailabl e FLORINDA, CARMEN May Attending Unavailable CARMEN NEELY Referring Unavailable NADERER, GILDARDO MCCALL Primary Care Unavailabl e Reggie VO, Gildardo Primary Care Provider Reggie VO, Gildardo Primary Care Provider Reggie VO, Gildardo Unavailable CASSIE HOOD Attending Unavailable NADERER, GILDARDO Attending Unavailable KAYDENHRASHIDA CHAVEZ Attending Unavailable NADERER, GILDARDO Attending Unavailable NADERER, GILDARDO Attending Unavailable NADERER, GILDARDO Referring Unavailable HOOD, CASSIE Nichols Attending Unavailable TATUM, CASSIE Nichols Attending Unavailable NADERER, GILDARDO Attending Unavailable TATUM, CASSIE Nichols Attending Unavailable NADERER, GILDARDO Attending Unavailable HOOD, CASSIE Nichols Attending Unavailable KAELA NEGRETE Attending Unavailable NADERER, GILDARDO Referring Unavailable RUSHER, JL Javier Attending Unavailable VALE CHIRINOS Referring Unavailable CHIRINOS, VALE Referring Unavailable NAZZAL, CAROLYN Referring Unavailable CRISENBERY, GILDARDO Referring Unavailable SESAY, ROSAURA Attending Unavailable CHIRINOSVALE Attending Unavailable NAZZAL, CAROLYN Admitting Unavailable NASADIQ, CAROLYN Attending Unavailable REGGIE, GILDARDO A Primary Care Unavailable HEBERT MIGUEL Referring Unavailable NADERER, GILDARDO A Primary Care Unavailable HEBERT MIGUEL Attending Unavailable CASSIE HOOD Referring Unavailable NADERER, GILDARDO A Primary Care Unavailable Kathrine CARPENTER Attending Unavailable ESDRAS CASH Referring Unavailabl e NADERER, GILDARDO A Primary Care Unavailable Kathrine CARPENTER Attending Unavailable ESDRAS CASH Referring Unavailabl e NADERER, GILDARDO A Primary Care Unavailable Kathrine CARPENTER Referring Unavailable NADERER, GILDARDO A Primary Care Unavailable Kathrine CARPENTER Attending Unavailable Medications Current Medications MedicationDrug Class(es)DatesSig (Normalized)Sig (Original)acetaminophen 500 mg oral tablet (3 sources)Start: 85-75-3755Vcvllyiwjyagy Active 500 MG PO As Directed August 07, 2020 12:00amacetaminophen 325 mg / oxyCODONE hydrochloride 10 mg oral tablet (20 sources)Opioid AgonistStart: 10-02-2020 End: 83-40-1924gbci 1 tablet by mouth four times daily as needed for pain oxyCODONE-acetaminophen (Percocet) 10-325 MG tablet Indications: DDD (degenerative disc disease), thoracic Take 1 tablet by mouth 4 (four) times a day as needed for severe pain 120 tablet 12/14/2024 01/13/2025 ActiveStart: 65-42-7188rgbn 1 tablet by mouth every six hours as neededoxyCODONE- acetaminophen (PERCOCET) 5-325 mg tablet Take 1 tablet by mouth four times daily as needed. 0 10/02/2020 ActiveStart: 07-24-1914Jkaejepzm-Acetaminophen Active 1 TAB PO As Directed August 07, 2020 12:00amtake 1 tablet by mouth every eight hours as neededoxyCODONE-acetaminophen (PERCOCET) 5-325 mg per tablet Take 1 tablet by mouth every 8 (eight) hoursas needed. Activetake 1 tablet by mouth every six hours as neededoxyCODONE-acetaminophen (Percocet) 5-325 mg tablet Take 1 tablet by mouth every 6 hours if needed. Activetake 1 tablet by mouth every six hours as needed for painoxyCODONE-Acetaminophen 10-325 MG Oral Tablet TAKE 1 TABLET EVERY 6 HOURS NEEDED FOR PAIN. Quantity: 0 Refills: 0 Ordered: 10-Jun-2022 DO ActiveComment on above:Take 1 tablet by mouth four times daily as needed.albuterol 0.83 mg/ml inhalation solution (20 sources)beta2-Adrenergic AgonistStart: 10-21-2023 End: 15-76-2813uaqjplogu (2.5 MG/3ML) 0.083% nebulizer solution Indications: Chronic obstructive pulmonary disease, unspecified COPD type (HCC) Take 3 mL (2.5 mg) by nebulization every 4 (four) hours if needed for wheezing or shortness of breath 75 mL 5 09/08/2024 ActiveStart: 73-52-3978Bcunlbcaw Sulfate Active 2.5 MG INHALATION As Directed August 07, 2020 12:00amStart: 08-07-2020 Albuterol Sulfate Active 2 PUFF INHALATION As Directed August 07, 2020 12:00am Start: 92-50-0177lssfjwkae (PROVENTIL) 2.5 mg /3 mL (0.083 %) nebulizer solution 2.5 mg. 02/15/2018 Activealbuterol (PROVENTIL HFA;VENTOLIN HFA) 90 mcg/actuation inhaler every 4 (four) hours. Activealbuterol 2.5 mg /3 mL (0.083 %) nebulizer solution Inhale. Activetake 2 puff(s) by inhalation three times dailyalbuterol 90 mcg/actuation inhaler Inhale 2 puffs 3 times a day. ActiveAlbuterol 90 MCG/ACT AERS Quantity: 0 Refills: 0 Ordered: 27-Nov-2021 DO Active As directed. Comment on above:2.5 mg.q 4 HR.albuterol 0.833 mg/ml / ipratropium bromide 0.167 mg/ml inhalation solution (20 sources)Anticholinergic, beta2-Adrenergic AgonistStart: 02-15-2018 ipratropium-albuterol (DUONEB) 0.5 mg-3 mg(2.5 mg base)/3 mL nebu Inhale 3 mL as instructed as needed for wheezing/shortness of breath. 02/15/2018 ActiveComment on above:Inhale 3 mL as instructed.Inhale 3 mL as instructed as needed for wheezing/shortness of breath. aspirin 81 mg oral tablet (20 sources)Platelet Aggregation Inhibitor, Nonsteroidal Anti-inflammatory Drug Start: 18-23-0427ahyn 81 mg by mouth once dailyAspirin Active 81 MG PO Daily August 07, 2020 12:00amtake 1 tablet by mouth in the morningaspirin 81 MG EC tablet Take 81 mg by mouth in the morning. ActiveComment on above:Take 81 mg by mouth once daily.atorvastatin 20 mg oral tablet (20 sources)HMG-CoA Reductase InhibitorStart: 06-10-2022 End: 10-65-1183qsln 1 tablet by mouth at bedtimeatorvastatin (Lipitor) 20 MG tablet Indications: Dyslipidemia Take 1 tablet (20 mg) by mouth at bedtime 90 tablet 3 09/08/2024 Active End: 66-91-5873ewux 1 tablet by mouth once dailyatorvastatin (Lipitor) 40 mg tablet Take 1 tablet (40 mg) by mouth once daily. 11/17/2023 Discontinued (Dose adjustment)Comment on above:Take by mouth.24 hr buPROPion hydrochloride 300 mg extended release oral tablet (20 sources)AminoketoneStart: 08-07-2020 End: 39-59-5487ggfp 300 mg by mouth once dailyBupropion Hcl Active 300 MG PO Daily August 07, 2020 12:00ambuPROPion XL (WELLBUTRIN XL) 300 mg 24 hr tablet q 24 HR. 0 ActiveComment on above:q 24 HR.Take 300 mg by mouth once daily. celecoxib 200 mg oral capsule (20 sources)Nonsteroidal Anti-inflammatory DrugStart: 10-21-2023 End: 83-03-5914ofxl 1 capsule by mouth twice daily at mealtime as needed for paincelecoxib (CeleBREX) 200 MG capsule Indications: Thoracic spondylosis TAKE 1 CAPSULE BY MOUTH TWICEDAILY WITH FOOD NEEDED for mild pain 60 capsule 5 03/30/2024 Activeciclopirox 0.0077 mg/mg topical gel (3 sources)Start: 42-33-0292Gfwylgskam Active 1 APPLIC TOPICAL Twice daily August 07, 2020 12:00amStart: 03-87-8762lxplsoscio (PENLAC) 8 % solution APPLY SOLUTION TO TOENAILS NIGHTLY 08/23/2019 Activecilostazol 50 mg oral tablet (2 sources)Phosphodiesterase 3 InhibitorStart: 40-57-2777rbjs 1 tablet by mouth in the morning, then take 1 tablet by mouth at bedtimecilostazoL (PLETAL) 50 mg tablet Indications: Abnormal ankle brachial index (BRITTANY) , PAD (peripheralartery disease) , Claudication Take 1 tablet (50 mg total) by mouth in the morning and 1 tablet (50mg total) before bedtime. 60 tablet 6 08/15/2021 Activeclopidogrel 75 mg oral tablet (20 sources)P2Y12 Platelet InhibitorStart: 07-26-2024 End: 62-67-3824gezq 1 tablet by mouth once dailyclopidogrel (Plavix) 75 MG tablet Take 75 mg by mouth Daily 07/26/2024 Activecollagenase 0.25 unt/mg topical ointment (2 sources)Collagen-specific EnzymeStart: 36-05-7935MLIKYO ointment Apply 1 application topically daily. 09/07/2019 ActivediphenhydrAMINE hydrochloride 2.5 mg/ml oral solution (9 sources)Histamine-1 Receptor Antagonist End: 13-64-5625xzzklanojoEGAYR 12.5 mg/5 mL liquid Take by mouth. 11/17/2023 Discontinued (Therapy completed)take 5 mL by mouth three times daily diphenhydrAMINE HCl - 12.5 MG/5ML Oral Liquid TAKE 5 ML THREE TIMES A DAY Quantity: 0 Refills: 0 Ordered: 27-Nov-2021 DO ActiveDULoxetine 60 mg delayed release oral capsule (20 sources)Serotonin and Norepinephrine Reuptake InhibitorStart: 34-41-3983mydk 1 capsule by mouth once dailyDULoxetine (Cymbalta) [address] capsule Take 60 mg by mouth Daily 08/04/2023 Active End: 33-68-0827MTHopcyjyv (CYMBALTA) 30 mg capsule q 24 HR. 12/20/2024 Discontinued (Discontinued by another Health Care Provider)take 1 capsule by mouth once dailyDULoxetine (Cymbalta) [address] capsule Take 1 capsule (30 mg) by mouth once daily. ActiveComment on above:q 24 HR.fluticasone propionate 0.05 mg/actuat metered dose nasal spray (20 sources)CorticosteroidStart: 63-96-8341Vlqhkvopdkk Propionate Active 50 MCG INTRANASAL As Directed August 07, 2020 12:00amStart: 07-05-2020 End: 09-62-8121voephivbvgw (FLONASE) 50 mcg/actuation nasal spray 2 Sprays once daily. 07/05/2020 04/17/2022 Discontinued (Course of therapy completed) End: 52-76-0847pgzqfpujebm (Flonase) 50 mcg/actuation nasal spray Administer into affected nostril(s). 0 05/06/2023 Discontinued (Discontinued by another clinician)Fluticasone Propionate 50 MCG/ACT Nasal Suspension As directed. Quantity: 0 Refills: 0 Ordered: 27-Nov-2021 DO ActiveComment on above:2 Sprays once daily.30 actuat fluticasone furoate 0.1 mg/actuat / umeclidinium 0.0625 mg/actuat / vilanterol 0.025 mg/actuat dry powder inhaler (4 sources)Anticholinergic, Corticosteroid, beta2-Adrenergic AgonistStart: 48-77-1920ngzi 1 puff(s) by inhalation once qaghsYujjehtvhif-Aznabuhsx-Nqknph (Trelegy Ellipta) 100-62.5-25 MCG/ACT aerosol powder Indications: Chronic obstructive pulmonary disease, unspecified COPD type (HCC) Inhale 1 puff Daily 60 each 5 12/30/2024 Ajgroi52 actuat fluticasone furoate 0.1 mg/actuat / vilanterol 0.025 mg/actuat dry powder inhaler (20 sources)Corticosteroid, beta2-Adrenergic AgonistStart: 02-29-2024 End: 72-17-0533xfyd 1 puff(s) by mouth once dailyFluticasone Furoate-Vilanterol 100-25 MCG/ACT aerosol powder Indications: Chronic obstructive pulmonary disease, unspecified COPD type (HCC) INHALE 1 PUFF BY MOUTH DAILY at the same time each day 60 each 5 02/29/2024 12/14/2024 DiscontinuedStart: 45-18-2072llka 1 puff(s) by inhalation once dailyFluticasone Furoate-Vilanterol (Breo Ellipta) 100-25 MCG/ACT aerosol powder Indications: Chronic obstructive pulmonary disease, unspecified COPD type (CMS/HCC) Inhale 1 puff 1 (one) time each day at the same time 28 each 5 02/29/2024 ActiveStart: 95-25-9778ihwg 1 puff(s) by inhalation once dailyFluticasone Furoate-Vilanterol (Breo Ellipta) 100-25 MCG/ACT aerosol powder Indications: Chronic obstructive pulmonary disease, unspecified COPD type (CMS/HCC) Inhale 1 puff 1 (one) time each day at the same time 28 each 5 02/29/2024 ActiveStart: 28-72-6199jpkg 1 puff(s) by mouth once dailyFluticasone Furoate-Vilanterol (Breo Ellipta) 100-25 MCG/ACT aerosol powder Indications: Chronic obstructive pulmonary disease, unspecified COPD type (HCC) INHALE 1 PUFF BY MOUTH DAILY at the same time each day 60 each 5 12/14/2024 Activefluticasone furoate-vilanterol (BREO ELLIPTA) 100-25 mcg/dose blister with device daily. Activefluticasone furoate-vilanteroL (Breo Ellipta) 100-25 mcg/dose inhaler Inhale. Activetake 1 puff(s) by inhalation once daily fluticasone-vilanterol (BREO ELIPTA) 100-25 MCG/INH inhaler 1 puff 1 (one) time each day at the same time. ActiveBreo Ellipta 100-25 MCG/INH AEPB as directed Quantity: 0 Refills: 0 Ordered: 27-Nov-2021 DO ActiveComment on above:INHALE 1 PUFF BY MOUTH ONCE DAILYmegestrol acetate 40 mg/ml oral suspension (20 sources)ProgestinStart: 01-53-0694jfdh 20 mL by mouth once dailymegestrol (Megace) 40 MG/ML suspension Indications: Tongue cancer (HCC) Take 20 mL (800 mg) by mouth Daily Shake well just before you measure a dose. Measure with a special dose-measuring spoon or medicine cup, not with a regular table spoon. If you do not have a dose-measuring device, ask your pharmacist for one. 480 mL 5 09/08/2024 ActiveStart: 03-30-2024 End: 78-29-8407znpw 20 mL by mouth once dailymegestrol (MEGACE) 400 mg/10 mL (40 mg/mL) suspension take 20 milliliters by mouth once daily 480 mL 1 04/04/2024 ActiveStart: 02-06-2021 End: 41-90-1513bupx 20 mL by mouth once dailymegestrol (MEGACE) 400 mg/10 mL (40 mg/mL) suspension take 20 milliliters by mouth once daily 480 mL 1 06/19/2023 Active End: 46-80-1233xfvb 1 tablet by mouth once dailymegestrol (Megace) 20 MG tablet Take 20 mg by mouth Daily. 09/08/2024 DiscontinuedComment on above:take 20 milliliters by mouth once dailymeloxicam 15 mg oral tablet (1 source)Nonsteroidal Anti-inflammatory DrugStart: 59-55-3219mcwp 15 mg by mouth once dailyMeloxicam Active 15 MG PO Daily August 07, 2020 12:00am methylPREDNISolone (2 sources)CorticosteroidStart: 83-73-4789ghrlrbWFNTZYAwvnfo (Medrol Dospak) 4 MG tablets Indications: Metatarsalgia of left foot Take as directed on package. 21 tablet 01/10/2025 Activemetoclopramide 5 mg oral tablet (2 sources)Dopamine-2 Receptor Antagonisttake 1 tablet by mouth once daily metoclopramide (REGLAN) 5 mg tablet Take 5 mg by mouth daily. Shjbau61 hr metoprolol succinate 50 mg extended release oral tablet (20 sources)beta-Adrenergic BlockerStart: 54-16-0473ezbr 1 tablet by mouth once dailymetoprolol succinate ER (TOPROL XL) 50 mg 24 hr tablet Take 50 mg by mouth once daily. 05/26/2022 Activemetoprolol succinate XL (Toprol-XL) 25 MG 24 hr tablet Activetake 1 tablet by mouth once dailymetoprolol tartrate (LOPRESSOR) 25 mg tablet Take 25 mg by mouth daily. Active End: 20-74-9997etlidygqoi succinate ER (TOPROL XL) 50 mg 24 hr tablet q 24 HR. 02/25/2022 Discontinued (Course of therapy completed)Comment on above:q 24 HR. Take 50 mg by mouth once daily.omeprazole 40 mg delayed release oral capsule (20 sources)Proton Pump InhibitorStart: 89-82-3253qyhx 1 capsule by mouth twice dailyomeprazole (PRILOSEC) 40 mg capsule Take 40 mg by mouth twice daily. 06/30/2022 ActiveStart: 05-18-2020 End: 95-70-0439elgx 1 capsule by mouth once dailyomeprazole (PriLOSEC) 40 mg capsule Take 1 capsule (40 mg total) by mouth daily. 30 capsule 1 05/18/2020 Active End: 23-45-5146nqpz 40 mg by mouth once dailyomeprazole magnesium (PRILOSEC ORAL) Take 40 mg by mouth once daily. 02/25/2022 Discontinued (Course of therapy completed)omeprazole magnesium (PRILOSEC ORAL) Take by mouth. 0 ActiveComment on above:Take by mouth.Take 40 mg by mouth once daily. Take 40 mg by mouth twice daily.potassium chloride 10 meq extended release oral tablet (20 sources)Start: 08-07-2020 End: 19-45-3118vfql 1 tablet by mouth once dailypotassium chloride CR (Klor-Con) 10 MEQ ER tablet Indications: Hyponatremia Take 1 tablet (10 mEq) by mouth Daily 30 tablet 11 07/29/2023 08/03/2024 Active End: 40-17-6720srxwaqjvz chloride SR (MICRO-K) 10 mEq CR capsule Take 10 mEq by mouth. 01/27/2023 DiscontinuedComment on above:Take 10 mEq by mouth.topiramate 100 mg oral tablet (20 sources)Start: 92-17-1744dosi 1 tablet by mouth twice dailytopiramate (TOPAMAX) 100 mg tablet Take 100 mg by mouth twice daily. 07/23/2020 Active Start: 26-21-4786knvy 50 mg by mouth twice dailyTopiramate Active 50 MG PO Twice daily August 07, 2020 12:00amStart: 10-38-1609ksfy 1 tablet by mouth once daily topiramate (TOPAMAX) 50 mg tablet Take 50 mg by mouth once daily. 0 07/23/2020 ActiveComment on above:Take 1 (one) Tablet by mouth two times dailyTake 50 mg by mouth once daily. Take 100 mg by mouth twice daily.zolpidem tartrate 10 mg oral tablet (20 sources)gamma-Aminobutyric Acid-ergic AgonistStart: 01-31-2019 End: 45-27-6510lzglkqam (Ambien) 10 MG tablet Indications: Primary insomnia Take 1 tablet (10 mg) by mouth as needed at bedtime for sleep 30 tablet 2 09/06/2024 ActiveStart: 92-65-9681hawlqegm (AMBIEN) 10 mg q 24 HR. 0 01/31/2019 Active Comment on above:q 24 HR.Take 10 mg by mouth at bedtime as needed. Completed/Discontinued Medications MedicationDrug Class(es)DatesSig (Normalized)Sig (Original)amiodarone hydrochloride 200 mg oral tablet (20 sources)AntiarrhythmicStart: 02-16-2018 End: 65-23-4414ezrs 1 tablet by mouth once dailyamiodarone (PACERONE) 200 mg tablet Take 200 mg by mouth once daily. 02/16/2018 07/16/2022 Discontinued (Discontinued by another Health Care Provider)Start: 57-43-2943kvvnxyxmfp (PACERONE) 200 mg tablet q 24 HR. 0 02/16/2018 ActiveComment on above:q 24 HR. Take 200 mg by mouth once daily. amLODIPine 5 mg oral tablet (20 sources)Dihydropyridine Calcium Channel BlockerStart: 06-28-2020 End: 89-94-8921zzzv 1 tablet by mouth once dailyamLODIPine (NORVASC) 5 mg tablet Take 5 mg by mouth once daily. 06/28/2020 01/16/2022 DiscontinuedComment on above:Take 5 mg by mouth once daily.diphenhydrAMINE 12.5 mg/5 mL lidocaine visc 2% MAALOX 200-200-20 mg/5 mL nystatin prednisoLONE 15 mg/5 mL oral liquid 1:1:1:1:1 (CPD) (3 sources)Start: 11-26-2021 End: 57-84-9416ckjz 5 mL by mouth every six hours as neededdiphenhydrAMINE 12.5 mg/5 mL lidocaine visc 2% MAALOX 200-200-20 mg/5 mL nystatin prednisoLONE 15 mg /5 mL oral liquid 1:1:1:1:1 (CPD) Take 5 mL by mouth every 6 hours as needed. Swish and swallow 300mL 1 11/26/2021 12/26/2021 ExpiredStart: 11-26-2021 End: 72-32-2217dssj 5 mL by mouth every six hours as neededdiphenhydrAMINE 12.5 mg/5 mL lidocaine visc 2% MAALOX 200-200-20 mg/5 mL nystatin prednisoLONE 15 mg /5 mL oral liquid 1:1:1:1:1 (CPD) Take 5 mL by mouth every 6 hours as needed. Swish and swallow 300mL 1 11/26/2021 12/26/2021 ActiveComment on above:Take 5 mL by mouth every 6 hours as needed. Swish and swallowiv contrast (will be provided with radiology test) (2 sources)Start: 02-25-2022 End: 16-72-6677quijmu 1 dose intravenously once, then inject 1 dose intravenously onceiv contrast (will be provided with radiology test) Inject 1 Each intravenously one time only for [address] Neck W IVCON No IV access, insert saline lock prior to the sedation, infusion, injection for imaging exam. Discontinue saline lock post exam. If Pt. has a central line or IVAD, may access foradministration according to line specific nursing protocol. Once exam is complete flush line and de-access according to line specific nursing protocol in the CT contrast administration guidelines link. 1 Each 0 02/25/2022 02/25/2022 ExpiredStart: 02-25-2022 End: 05-99-5800as contrast (will be provided with radiology test) CT Chest W - Inject, intravenously, once for 1 dose.No IV access, insert saline lock prior to the beginning of sedation, infusion, injection of imaging exam. Discontinue saline lock post exam. If Pt. has a central line or IVAD, may access for adminis tration according to line specific nursing protocol. Once exam is complete flush line and de-accessaccording to line specific nursing protocol in the CT contrast administration guidelines link. 1 Each 0 02/25/2022 02/26/2022 ExpiredComment on above:Inject 1 Each intravenously one time only for [...] and de-access according to line specific nursing protocolin the CT contrast administration guidelines link.CT Chest W - Inject, intravenously, once for 1 dose.No IV access, insert saline lock prior to the beginning of sedation, infusion, injection of imaging exam. Discontinue saline lock post exam. If Pt. has a central line or IVAD, may access for administration according to line specific nursing protocol. Once exam is complete flush line and de-access according to line specific nursing protocol in theCT contrast administration guidelines link.ketorolac tromethamine 10 mg oral tablet (12 sources)Nonsteroidal Anti-inflammatory Drug, Cyclooxygenase InhibitorStart: 11-20-2021 End: 76-22-1770hcqg 1 tablet by mouth three times daily for painkeTORolac (TORADOL) 10 mg tablet take 1 tablet by mouth three times a day if needed for pain for 5 days 11/20/2021 01/16/2022 DiscontinuedComment on above:take 1 tablet by mouth three times a day if needed for pain for 5 dayslansoprazole (9 sources)Proton Pump Inhibitor End: 27-65-1586vwqklpagxais (PREVACID ORAL) Take by mouth. 08/05/2021 Discontinued (Changing Therapy/Dosage Form) End: 93-62-4210ssnldcbiwgyl (PREVACID ORAL) Take by mouth. 0 08/05/2021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 Carpenter received a call from [facility] ER today and would like Alejo scheduled for a follow up here next week. Cris: Will you please print ER records from [facility]? Thanks SCOTT Bolton Trisha 02/15/2025 3:24 PM Signed I called and spoke to Alejo, he is scheduled next Thursday the 21 of February at 4:00 PM for a follow up with Dr Ron Arias [facility] Marina Tamie 02/15/2025 4:14 PM Signed ER records from today scanned. Patient was also in the ER on 02/06/25, so I scanned those as well. Allergies As of Date: 02/15/2025 (No Known Allergies) Date Reviewed: 12/20/2024 Reviewed by: Azar Martino RN - Fully Assessed Reason for Visit: Appointment [186] Prescriptions as of 02/15/2025 - clopidogrel (PLAVIX) 75 mg tablet Take 75 mg by mouth. - megestrol (MEGACE) 400 mg/10 mL (40 mg/mL) suspension take 20 milliliters by mouth once daily - atorvastatin (LIPITOR) 20 mg tablet Take by mouth. - omeprazole (PRILOSEC) 40 mg capsule Take 40 mg by mouth twice daily. - metoprolol succinate ER (TOPROL XL) 50 mg 24 hr tablet Take 50 mg by mouth once daily. - BREO ELLIPTA 100-25 mcg/dose inhaler INHALE 1 PUFF BY MOUTH ONCE DAILY - aspirin, enteric coated (ASPIRIN, ENTERIC COATED) 81 mg EC tablet Take 81 mg by mouth once daily. - oxyCODONE-acetaminophen (PERCOCET 10) 10-325 mg tablet Take 1 tablet by mouth four times daily as needed. - albuterol (PROVENTIL) 2.5 mg /3 mL (0.083 %) nebulizer solution 2.5 mg. - albuterol HFA (PROVENTIL HFA, VENTOLIN HFA) 90 mcg/actuation inhaler q 4 HR. - ipratropium-albuterol (DUONEB) 0.5 mg-3 mg(2.5 mg base)/3 mL nebu Inhale 3 mL as instructed as needed for wheezing/shortness of breath. - topiramate (TOPAMAX) 100 mg tablet Take 100 mg by mouth twice daily. - zolpidem (AMBIEN) 10 mg Take 10 mg by mouth at bedtime as needed. Problem List As Of Date 02/15/2025 Noted Resolved Severe protein-calorie malnutrition (HCC) [E43] 08/01/2020 Cancer of base of tongue (HCC) [C01] 08/02/2020 Essential hypertension, benign [I10] 06/25/2021 Tachycardia [R00.0] 06/25/2021 PVD (peripheral vascular disease) (HCC) [I73.9] 06/25/2021 Peripheral neuropathy [G62.9] 06/25/2021 History of transient ischemic attack (TIA) [Z86*06/25/2021 COPD (chronic obstructive pulmonary disease) (H*06/25/2021 Current smoker [F17.200] 06/25/2021 GERD (gastroesophageal reflux disease) [K21.9] 06/25/2021 Prediabetes [R73.03] 06/25/2021 Depression [F32.A] 06/25/2021 Migraine [G43.909] 06/25/2021 Insomnia [G47.00] 06/25/2021 Dysphagia [R13.10] 06/25/2021 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] 06/25/2021 Physical deconditioning [R53.81] 08/09/2021 Nausea [R11.0] 09/16/2021 Encounter Status:Closed by AZAR MARTINO on [facility]/REFLEX FT4on 15-45-1706RQY TSH SERPL-ACNC2.12NONJ Healthcare Specimen Type: BLOOD SPECIMEN Ordering Facility: [facility] Address: [address] [place] [address] Original Ordering Provider: Kathrine ARVIZUISYNCNo Panel Informationon 77-17-1435OSCWSouthPointe Hospital W/REFLEX FT4on 25-87-6271Umucrpcjlutsex and review of laboratory resultsNoRiverview Health Institute Qn2.120 m[IU]/[facility] CNOVon 96-89-7369ZNGKUgpydu Visit (RADTSA) MARIELALEJO ([id number]) 1960 M Date Time Provider Department 12/20/24 1:15 PM Kathrine CARPENTER During your visit today, we recorded the following information about you: Temperature Pulse Respiration Blood pressure 98.9 degrees 83/minute 20/minute 151/70 Weight 60.5 kg Kathrine Carpenter MD 12/27/2024 10:45 AM Signed Radiation Oncology - Follow Up Note DIAGNOSIS: Squamous cell carcinoma oropharynx, 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, C3Nb6T6 RADIATION SUMMARY: Course 1: DATES OF TREATMENT: [...] Bimanual exam without p (more content not included)...NormalSelect Medical Specialty Hospital - YoungstownTS W/REFLEX FT4on 26-76-4876BSJ Qn2.120 m[IU]/LNormal0.270-4.200Select Medical Specialty Hospital - YoungstownComment on above:Order Comment: Specimen Type: BLOOD SPECIMEN Ordering Facility: [facility] Address: [address] [place], [place] [address]Performed By: #### TSHRF #### [facility] CLIA [id number] [address] [place] [address] [place] [address] [place] STATES OF AMERICAOffice Visiton 12-08-2024 Follow-up [id number] Alejo Floyd 1960 M Date Provider Department Center 12/08/2024 68599-QOHCROSAURA SESAY HVCVASENDO [place] HeartVAS No family history on file Level of Service:87212 IA OFFICE/OUTPATIENT ESTABLISHED HIGH MDM 40 MIN Reason for Visit and Comments: Post-op [483] - Left neck painNormalUniversity of Memorial Hermann Surgical Hospital KingwoodOrders Onlyon 99-83-4228Zzrnvs [id number] Alejo Floyd 1960 M Date Provider Department Center 11/21/2024 GILDARDO DAVIS [facility] C No family history on fileNormalUniversity OhioHealth Grady Memorial HospitalHPon 75-80-9001OGR&P reviewed. The patient was examined and there are no changes to the H&P.[facility] Berger HospitalNURSNOTEon 41-36-0539UIDJSZAKJG educated pt on d/c instructions. This included: site care, limited physical [...] wheeled off of unit with all of belongings.NormalCleveland Clinic Avon HospitalOrders Onlyon 73-18-6224Oycgwn [id number] Alejo Floyd 1960 M Date Provider Department Center 11/16/2024 44645-CLZULNIRMAL WESTON [facility] C No family history on fileNormalUniversSt. Vincent Hospital29on [id number] by: MARINA PRICE on: 11/17/2024 03:48 PM Modules accepted: OrdersNormalUniversSt. Vincent HospitalAPTTon 08-08-9347GPXFNWDVI PARTIAL THROMBOPLASTIN TIME IN PPP BY COAGULATION ASSAY30.4 AiylsbtJxlpnw86.0-35.0UnFort Hamilton HospitalComment on above:Result Comment: Clinical significance of the APTT is questionable in the presence of heparin.Performed By: #### [id number] #### [facility] (BEAKER) [address] [place], [place] [address]HQCYY METABOLIC PANELon 21-90-7348Htrlo gap [Moles/Vol]11 mmol/L Normal7-20[facility] Medical CenterComment on above:Performed By: #### [id number] #### [facility] ([facility]) [address] [place] [address]Bmoswqw [Mass/Vol]9.4 mg/dLNormal8.6-10.3UnFort Hamilton HospitalComment on above:Performed By: #### [id number] #### [facility] ([facility]) [address] [place] [address]Gknpdkch [Moles/Vol]97 mmol/OAwd52-240FzhfkmlamtFort Hamilton HospitalComment on above:Performed By: #### [id number] #### [facility] ([facility]) [address] [place] [address]OR5 [Moles/Vol]29 mmol/SJcwayx94-09UiptomhxhoFort Hamilton HospitalComment on above:Performed By: #### [id number] #### [facility] ([facility]) [address] [place], [place] [address]Pxwacsnpbg [Mass/Vol]0.81 mg/dLNormal0.70-1.30UnFort Hamilton HospitalComment on above:Performed By: #### [id number] #### [facility] ([facility]) [address] [place], [place] [address]BPEXDSJHST FILTRATION RATE ML/MIN/1.73 SQ M.DGEZHEMFU20.5 mL/min/1.73m*2Normal>60.0UnFort Hamilton HospitalComment on above: Result Comment: [facility]???s estimated glomerular filtration rate (eGFR) will [...] potential consequences that do not disproportionately affect anyone group of individuals.Performed By: #### [id number] #### [facility] ([facility]) [address] [place], [place] [address]Fcxktvh [Mass/Vol]91 mg/rXLzpatd19-927DabvdnylwtFort Hamilton HospitalComment on above:Performed By: #### [id number] #### [facility] ([facility]) [address] [place] [address]Ptvvkidcv [Moles/Vol]4.3 mmol/LNormal3.5-5.1UnFort Hamilton HospitalComment on above:Performed By: #### [id number] #### [facility] ([facility]) [address] [place] [address]Fkmcjx [Moles/Vol]133 mmol/OYxj274-801FkygnhedxmFort Hamilton HospitalComment on above:Performed By: #### [id number] #### [facility] ([facility]) [address] [place] [address]Udae nitrogen [Mass/Vol]16 mg/dLNormal7-25UnFort Hamilton HospitalComment on above:Performed By: #### [id number] #### [facility] ([facility]) [address] [place] [address]TWIZ NITROGEN/CREATININE (MASS RATIO) IN SER/PLAS19.8Normal [facility] Clinic Avon HospitalComment on above:Performed By: #### [id number] #### [facility] ([facility]) [address] [place] [address]UWVgw 83-84-7998Jknitdfdxqz distribution width (RBC) [Ratio]13.6 %Owfkcr84.5-15.0UnFort Hamilton HospitalComment on above:Performed By: #### [id number] ####[facility] ([facility])[address] [facility] [address] ERYTHROCYTE MEAN CORPUSCULAR HEMOGLOBIN CONCENTRATION (G/DL) BY QKDKLVNXQ87.0 g/bCAqkaqr40.0-35.0UnFort Hamilton HospitalComment on above:Performed By: #### [id number] ####[facility] ([facility])[address] [place], [place] [address]Aytfcftuje (Bld) [Volume fraction]40.6 %Bmpelk44.0-50.0UnFort Hamilton HospitalComment on above:Performed By: #### [id number] ####[facility] ([facility])[address] [place] [address]Jxwiwutsef (Bld) [Mass/Vol]13.4 g/dL Vizsqv20.0-17.0UnFort Hamilton HospitalComment on above:Performed By: #### [id number] ####[facility] ([facility])[address] [place] [address]VJZ (RBC) [Entitic mass]33.3 drUluj20.0-33.0UnFort Hamilton Hospital Comment on above:Performed By: #### [id number] ####[facility] ([facility])[address] [place] [address]QGM (RBC) [Entitic vol]100.7 qCOali78.0-98.0 [facility] Avon HospitalComment on above:Performed By: #### [id number] ####[facility] ([facility])[address] [place] [address]AAOZJRDCX (10*3/UL) IN BLOOD AUTOMATED KLQGP638 10*3/zZJmjdjg801-221IrgmklrywbFort Hamilton HospitalComment on above:Performed By: #### [id number] ####[facility] ([facility])[address] [place] [address]HXS (Bld) [#/Vol]4.03 10*6/uLLow 4.20-5.70UnFort Hamilton HospitalComment on above:Performed By: #### [id number] ####[facility] ([facility])[address] [place] [address]PCK (Bld) [#/Vol]5.77 10*3/uLNormal4.00-10.60UnFort Hamilton HospitalComment on above:Performed By: #### [id number] ####[facility] ([facility])[address] [address]MXrq 46-34-2091QIOha-Anesthesia Clinic Service Date: 11/15/24 Chief Complaint: Patient presents [...] shortness of breath at rest. ECHO at [facility] in July 2024 revealed EF 50-55%, no [...] reviewed, no acute findings. Patient follows with [facility]. Clearance request faxed to office per Dr. Mcfarland's office on 11/11/24. Preoperative labs remains outstanding, patient to complete today after visit. Subjective Allergies[1] Medication Documentation Review Audit Reviewed by Dipika Newsome RN (Registered Nurse) on 11/15/24 at 1420 Medication Order Taking? Sig Documenting Provider Last Dose Status albuterol 2.5 mg /3 mL (0.083 %) nebulizer solution [id number] Yes Take 2.5 mg by nebulization every 6 (six) hours if needed for wheezing. Historical ProviderMD 11/15/2024 Active albuterol 90 mcg/actuation inhaler [id number] Yes Inhale 2 puffs every 6 (six) hours if needed for wheezing. Historical ProviderMD 11/15/2024 Active aspirin 81 mg EC tablet [id number] Yes Take 81 mg by mouth in the morning. Historical Provider, MD 11/15/2024 Active atorvastatin (Lipitor) 20 mg tablet [id number] Yes Take 20 mg by mouth in the morning. Aparna Andersen MD 11/15/2024 Active buPROPion XL (Wellbutrin XL) 150 mg 24 hr tablet [id number] Take 150 mg by mouth in the morning. Do not crush, chew, or split. Aparna Andersen MD Flag for Review clopidogrel (Plavix) 75 mg tablet [id number] Yes Take 75 mg by mouth in the morning. Aparna Andersen MD 11/15/2024 Active fluticasone furoate-vilanteroL (Breo Ellipta) 100-25 mcg/dose inhaler [id number] Yes Inhale 1 puff in the morning. Aparna Andersen MD 11/15/2024 Active megestrol (Megace) 400 mg/10 mL (40 mg/mL) suspension [id number] Yes Take 20 mL by mouth in the morning. Shake well just before you measure a dose. Measure with a special dose-measuring spoon or medicine cup, not with a regular table spoon. If you do not have a dose-measuring device, ask your pharmacist for one. Aparna Andersen MD 11/15/2024 Active metoprolol succinate XL (Toprol-XL) 25 mg 24 hr tablet [id number] Yes Take 50 mg by mouth in the morning. Do not crush or chew. Aparna Andersen MD 11/15/2024 Active omeprazole (PriLOSEC) [address] capsule [id number] Yes Take 40 mg by mouth before breakfast. Do not crush or chew. Aparna Andersen MD 11/15/2024 Active oxyCODONE-acetaminophen (Percocet) 10-325 mg tablet [id number] Yes Take 1 tablet by mouth every 6 (six) hours if needed for severe pain (8-10 pain score). Aparna Andersen MD 11/15/2024 Active potassium chloride CR (Klor-Con M10) 10 mEq ER tablet [id number] Yes Take 10 mEq by mouth in the morning. Do not crush or chew. Aparna Andersen MD 11/15/2024 Active topiramate (Topamax) 100 mg tablet [id number] Yes Take 100 mg by mouth two times daily. Aparna Andersen MD 11/15/2024 Active Immunization History Administered Date(s) Administered Covid ([employer]) Bivalent Booster =>12 YRS 06/12/2022 Pfizer Covid-19 Vaccine, 12&up, Fall 2022-05/27/2023 Pfizer SARS-CoV-2 Vaccination 07/11/2020, 08/01/2020, 12/20/2020 Unspecified Sars-Cov-2 [...] Sexual activity: Not o (more content not included)...NormalUnFort Hamilton HospitalLabon [id number] Alejo Floyd 1960 Date Provider Department [place] 11/15/2024 2244[facility] LAB RESOURCE MP DRAW Medical Pavi No family history on fileNormalUniNationwide Children's HospitalMRSA/MSSA DNA NASALon 14-20-9894DQUH DNANegativeNormalNegativeCleveland Clinic Avon HospitalComment on above:Order Comment: Testing methodology is an automated qualitative in [...] A negative result does not preclude nasal colonization.Performed By: #### [id number] ####[facility] YARELIS)[address] [place], [place] [address]BDTC DNANegativeNormalNegative [facility] Clinic Avon HospitalComment on above:Order Comment: Testing methodology is an automated qualitative in vitro diagnostic test for the dire ctdetection and differentiation of Staphylococcus aureus (SA) DNA and methicillin-resistant Staphylococcus aureus (MRSA) DNA from nasal swabs in patients at risk for nasal colonization. The test utilizes real-time polymerase chain reaction (PCR) for the amplification of MRSA/SA DNA and fluorogenic t arget-specific hybridization probes for the detection of the amplified DNA. A negative result does not preclude nasal colonization.Performed By: #### [id number] ####[facility] ([employer])[address] [place], [place] [address]RHBVVPM-FHFqy 13-95-5124YHB IN PPP BY COAGULATION ASSAY1.05Amcb4.90-1.10UnFort Hamilton HospitalComment on above:Result Comment: [facility] RECOMMENDED INR FOR WARFARIN THERAPY CONDITION INR PROPHYLAXIS OF VENOUS THROMBOSIS 2-3 (HIGH-RISK SURGERY) TREATMENT OF VENOUS THROMBOSIS 2-3 TREATMENT OF PULMONARY EMBOLISM 2-3 PREVENTION OF SYSTEMIC EMBOLISM: 2-3 ACUTE MYOCARDIAL INFARCTION TISSUE HEART VALVES VALVULAR HEART DISEASE ATRIAL FIBRILLATION RECURRENT SYSTEMIC EMBOLISM MECHANICAL HEART VALVE 2.5-3.5 FROM: ORAL ANTICOAGULANTS. MECHANISM OF ACTION, CLINICAL EFFECTIVENESS, AND OPTIMAL THERAPEUTIC RANGE. CHEST 1995;108:231S-246S.Performed By: #### [id number] #### [facility] ([employer]) [address] [place], [place] [address]TOYZPFZOTAW TIME (PT) IN PPP BY COAGULATION ASSAY14.4 Seconds Arjakh68.3-14.8UnFort Hamilton HospitalComment on above:Performed By: #### [id number] #### [facility] (AKER) [address] [place], [place] [address]Kjd-Msstbyjwo Testingon 06-34-4303Yza-Admission [id number] Alejo Floyd 1960 M Date Provider Department Center 11/15/202430173-AHQ-OCGIQBDDEZ CLINI*[facility] C No family history on fileNormalUniversity of Memorial Hermann Surgical Hospital KingwoodFollow-Upon 59-24-8886Fouhuk-[id number] Alejo Floyd 1960 M Date Provider Department Center 10/31/2024 503-VALE CHIIRNOS HVCVASENDO [place] HeartVAS No family history on file Level of Service:51656 IA OFFICE/OUTPATIENT ESTABLISHED MOD MDM 30 MIN Reason for Visit and Comments: Follow-up [615729] - Left side neck has crampsNormalUniversity of Memorial Hermann Surgical Hospital KingwoodHPon 86-00-6564PFHGGCBONIZP OF VASCULAR SURGERY HPI Alejo Floyd is a 64 y.o. male who presents today for follow-up evaluation for carotid stenosis and PAD. With respect to carotid disease patient does report that in May and then again in July this past year he developed sudden onset left-sided leg weakness and was seen at [facility]. He reports he was diagnosed with a TIA both times. I obtained records from [facility] and appears he was diagnosed with a [...] CTA and MRI from July 2024 at [facility]. Patient has over 50-69% stenosis which has been consistent with 2 different ultrasounds with MRI evidence of subacute stroke on the right via MRI. Reviewed case with Dr. Mcfarland, at this time we will proceed with transfemoral carotid/cerebral angiogram with carotid stenting (with distal embolic protection). Given his hostile neck transfemoral approach most appropriate. Echo done at [facility] in July EF 50-55% no significant valvular disease His PAD is stable. He has known LLE moderate occlusive disease but is free of symptoms. Will continue medical management GDMT: DAPT, statin If recurrent left-sided symptoms occur patient advised to present to the ED immediately Electronically signed by: Vale Chirinos PA-C Physician [facility] 10/31/2024 This note was created with the assistance of a speech-recognition program. While intending to generate a document that accurately reflects the content of the encounter, no guarantee can be provided that every mistake has been identified and corrected by editing [1] No past medical his (more content not included)...[facility] 50-86-7225FAMMUbmkca Visit (LYN) ALEJO FLOYD ([id number]) 1960 M Date Time Provider Department 06/21/24 1:30 PM Kathrine CARPENTER During your visit today, we recorded the following information about you: Temperature Pulse Respiration Blood pressure 97.9 degrees 95/minute 18/minute 110/58 Weight 59.4 kg Kathrine Carpenter MD 06/29/2024 12:44 PM Signed Radiation Oncology - Follow Up Note DIAGNOSIS: Squamous cell carcinoma oropharynx, 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 Lymph Node (more content not included)...NormalLima Memorial Hospital 91-88-7601EUVDVparua Visit ([facility]) FLOYDALEJO ([id number]) 1960 M Date Time Provider Department 06/10/24 1:[address] [facility] During your visit today, we recorded the following information about you: Weight Height 63.5 kg 1.778 m Hebert Miguel MD 06/10/2024 5:06 PM Signed SHOULDER/ELBOW INITIAL CONSULT SERVICE DATE: 06/09/2024 PCP: Gildardo Lacy MD REFERRING PROVIDER: EMILIE Spicer [address] [facility] [address] [facility] [address] Consult requested for an opinion regarding the evaluation and treatment of the above. My final impression and recommendations will be communicated back to the requesting physician by way of the shared medical record or letter via US mail. CHIEF COMPLAINT: Right shoulder pain SUBJECTIVE HISTORY OF PRESENT ILLNESS: 63 year old male, who presents for the above CC. Patient is a gsolv-odlk-yxwlovxo 63-year-old male with past medical history of [...] without relief. Has been taking Tylenol and pqxi-uuw-lnxmxkq medications. Pain is improved when he is [...] solution 2.5 mg. albuterol (more content not included)...NormalSelect Medical Specialty Hospital - YoungstownCT Shoulder - right WO contraston 06-10-2024* * *Final Report* * * DATE OF [...] are maintained. IMPRESSION: No acute bony abnormality. Vp Customer Service: [facility] HOSPITALJuan Luis Transcribe Date/Time: Jun 10 2024 5:13P Dictated by : GERMAN VALDEZ MD This examination was interpreted and the report reviewed and electronically signed by: GERMAN VALDEZ MD on Jun 10 2024 5:13PM EST [id number]^AGFA_IDC^SI^ACNCCFRadiology, Radiologist, - 06/10/2024 * * *Final Report* * [...] are maintained. IMPRESSION: No acute bony abnormality. Vp Customer Service: EDGAR Transcribe Date/Time: Jun 10 2024 5:13P Dictated by : GERMAN VALDEZ MD This examination was interpreted and the report reviewed and electronically signed by: GERMAN VALDEZ MD on Jun 10 2024 5:13PM EST [id number]^AGFA_IDC^SI^ACN [facility] HealthcareRadiology Study observation (narrative)[facility] HealthNo Panel InformationOrdered By: Radiologist Radiology on [id number] [email or web address] Work Phone: XR SHLDR >/=3V AP/DEVON AP/OTHR RTon 13-32-2508WR SHLDR >/=3V AP/DEVON AP/OTHR RT* * *Final Report* * * DATE OF [...] are maintained. IMPRESSION: No acute bony abnormality. Vp Customer Service: [employer] Transcribe Date/Time: Jun 10 2024 5:13P Dictated by : GERMAN VALDEZ MD This examination was interpreted and the report reviewed and electronically signed by: GERMAN VALDEZ MD on Jun 10 2024 5:13PM EST [id number]_[id number] Medical Specialty Hospital - YoungstownXR Shoulder - right 3 Viewson 42-61-6670TSGETBGUCA: No acute bony abnormality. Vp Customer Service: EDGAR Transcribe Date/Time: Jun 10 2024 5:13P Dictated by : GERMAN VALDEZ MD This examination was interpreted and the report reviewed and electronically signed by: GERMAN VALDEZ MD on Jun 10 2024 5:13PM EST DIVISION OF RADIOLOGY* * *Final Report* * * DATE OF [...] identified. Joint spaces are maintained. DIVISION OF RADIOLOGYProvider, [facility] [place] - 06/10/2024 * * *Final Report* * [...] maintained. IMPRESSION IMPRESSION: No acute bony abnormality. Vp Customer Service: [facility] Transcribe Date/Time: Jun 10 2024 5:13P Dictated by : GERMAN VALDEZ MD This examination was interpreted and the report reviewed and electronically signed by: GERMAN VALDEZ MD on Jun 10 2024 5:13PM EST [facility] EastRadiology Study observation (narrative)[facility] EastPET+CT Guidance for localization of tumor of Skull base to mid-thigh-- W 18F-FDG Joanna 03-60-4233ZQPFZKKHHF: HEAD/NECK: * No FDG avid neoplastic process. [...] any questions regarding this interpretation, please call [phone]. If you are unable to reach us at the number above, please feel free to contact [facility] at [phone].DIVISION OF RADIOLOGY* * *Final Report* * * DATE OF [...] * Radiopharmaceutical Activity: 6.8 mCi * Radiopharmaceutical: B69-Ksrsgtskzbwcvgmfff (FDG) * All reported standardized uptake values represent maximum SUV (SUVmax) per body weight, unless otherwise specified. COMPARISON: 02/11/2023 CORRELATION: CT neck and chest 09/10/2022 RESULT: REFERENCES: SUV reference values: * Blood pool (descending aorta) activity: SUVmax 2.1 * Background liver activity: SUVmax 2.7 Community Development Director (topogram) images: No additional findings. Notes and [...] Soft Tissues: No abnormal uptake. DIVISION OF RADIOLOGYProvider, [facility] [place] - 12/17/2023 * * *Final Report* * [...] * Radiopharmaceutical Activity: 6.8 mCi * Radiopharmaceutical: Y33-Uogejqdgapmzaasmqc (FDG) * All reported standardized uptake values represent maximum SUV (SUVmax) per body weight, unless otherwise specified. COMPARISON: 02/11/2023 CORRELATION: CT neck and chest 09/10/2022 RESULT: REFERENCES: SUV reference values: * Blood pool (descending aorta) activity: SUVmax 2.1 * Background liver activity: SUVmax 2.7 Community Development Director (topogram) images: No additional findings. Notes and [...] any questions regarding this interpretation, please call [phone]. If you are unable to reach us at the number above, please feel free to contact [facility] eRadiology at [phone]. [facility] EastPET[facility] Guidance for localization of tumor of Skull base to mid-thigh-- W 18F-FDG IVOrdered By: Ccf Provider on 82-99-0927[facility] CBC W Auto Differential panel (Bld)on 52-13-7168Dbctkyhem (Bld) [#/Vol]0.04 10*3/uLNINFRegency Hospital [facility] EastBasophils/100 WBC (Bld)0.6 %[facility] Differential cell count method Nom (Bld)AutoCleveland ClinicEosinophils (Bld) [#/Vol]NINFClevelMercy Health Willard HospitalEosinophils/100 WBC (Bld)0.3 %[facility] Erythrocyte distribution width (RBC) [Ratio]15.7 %High11.5 - 15.0 %[facility] EastHematocrit (Bld) [Volume fraction]41.9 %39.0 - 51.0 %[facility] Hemoglobin (Bld) [Mass/Vol]13.9 g/dL13.0 - 17.0 g/dLRegency Hospital Cleveland EastImmature granulocytes (Bld) [#/Vol]NINFClevelMercy Health Willard HospitalImmature granulocytes/100 WBC (Bld)0.3 %[facility] EastInterpretation and review of laboratory results AbnormalRegency Hospital Cleveland EastLymphocytes (Bld) [#/Vol]1.15 10*3/uLRegency Hospital [facility] East Lymphocytes/100 WBC (Bld)17.6 %[facility] HospitalH (RBC) [Entitic mass]33.7 pg 26.0 - 34.0 pgCSelect Medical TriHealth Rehabilitation HospitalHC (RBC) [Mass/Vol]33.2 g/dL30.5 - 36.0 g/dL [facility] HospitalV (RBC) [Entitic vol]101.5 sQZqdf42.0 - 100.0 fLClevelMercy Health Willard HospitalMonocytes (Bld) [#/Vol]0.87 10*3/uLHighNINFRegency Hospital [facility] EastMonocytes/100 WBC (Bld)13.3 %[facility] ClinicNeutrophils (Bld) [#/Vol]4.45 10*3/uLNewland ClinicNeutrophils/100 WBC (Bld)67.9 %[facility] ClinicNucleated RBC (Bld) [#/Vol] NINFCleveland ClinicNucleated RBC/100 WBC (Bld) [Ratio]0.0 %/100 WBCNewland ClinicPlatelet mean volume (Bld) [Entitic vol]9.8 fL9.0 - 12.7 fLCleveland ClinicPlatelets (Bld) [#/Vol]235 10*3/uLNewland ClinicRBC (Bld) [#/Vol]4.13 10*6/uLLow4.20 - 6.00 m/[facility]ot Memorial HospitalWBC (Bld) [#/Vol]6.55 10*3/uLProMedica Flower HospitalComprehensive metabolic 2000 panelOrdered By: Felisha Munoz on 01-01-3325Ddamfed [Mass/Vol]4.7 g/dL3.9 - 4.9 g/dLNewland ClinicALP [Catalytic activity/Vol]62 U/L38 - 113 U/LCleveland ClinicALT [Catalytic activity/Vol]7 U/LLow10 - 54 U/LCleveland ClinicAnion gap [Moles/Vol]9 mmol/L8 - 15 mmol/LCleveland ClinicAST [Catalytic activity/Vol]19 U/L14 - 40 U/LCleveland ClinicBilirubin [Mass/Vol]1.0 mg/dL0.2 - 1.3 mg/dLClewadsworth-rittman hospital ClinicCalcium [Mass/Vol]10.3 mg/dLHigh8.5 - 10.2 mg/dLNewland ClinicChloride [Moles/Vol]105 mmol/L98 - 107 mmol/LCleveland ClinicCO2 [Moles/Vol]24 mmol/L22 - 30 mmol/L [facility] ClinicCreatinine [Mass/Vol]0.81 mg/dL0.73 - 1.22 mg/dLRegency Hospital [facility] GFR/1.73 sq M.predicted among non-blacks MDRD (S/P/Bld) [Vol rate/Area]99 mL/min/{1.73_m2}- PINFCleveland ClinicComment on above:Estimated Glomerular Filtration Rate (eGFR) is calculated using the 2020 CKD-EPI creatinine equation. This equation utilizes serum creatinine, sex, and age as parameters. The creatinine assay has traceable calibration to isotope dilution-mass spectrometry. Refer to KDIGO guidelines for clinical interpretation. In patients with unstable renal function, e.g. those with acute kidney injury, the eGFRmay not accurately reflect actual GFR.Glucose [Mass/Vol]104 mg/kXMqzd56 - 99 mg/dL [facility] on above:The [place] Diabetes Association (ADA) provides guidance for cutoff values for fasting glucose andrandom glucose. The ADA defines fasting as no caloric intake for at least 8 hours. Fasting plasma gl ucose results between 100 to 125 mg/dL indicate [...] Standards of Medical Care in Diabetes 2016, [place] [employer]. Diabetes Care. 2016.39(Suppl 1). Interpretation and review of laboratory resultsAbnormalCleveland ClinicPotassium [Moles/Vol]4.4 mmol/L3.7 - 5.1 mmol/LCleveland ClinicProtein [Mass/Vol]7.5 g/dL 6.3 - 8.0 g/dLNewland ClinicSodium [Moles/Vol]138 mmol/L136 - 144 mmol/L [facility] ClinicUrea nitrogen [Mass/Vol]13 mg/dL9 - 24 mg/dLSelect Medical Specialty Hospital [facility] ClinicGLUCOSE, BLOOD (POC)on 36-48-2994Fwxznpt [Mass/Vol]111 mg/dL Qikyclvj33 - 99 mg/dLMercy Health Defiance Hospital on above:Location:[facility], [address] [place] [address] Dr. [place], [place], [address] The Accu-Chek Inform II glucose meter has [...] above situations. Interpretation and review of laboratory resultsAbnormalCRegency Hospital CompanyPET+CT Guidance for localization of tumor of Skull base to mid-thigh-- W 18F-FDG Joanna 49-63-5905Nlscwnfvs Study observation (narrative)[facility] THYROID STIMULATING HORMONEon 04-69-3828BTN Qn4.700 m[IU]/LHighRegency Hospital [facility] East TSH Qnon 58-68-8101Ukanpvdwzyesol and review of laboratory resultsAbnormal [facility] Flower HospitalECG 12 Leadon 05-35-6496UMB revealed normal sinus rhythm with [facility] Work Phone: Cholesterol [Mass/volume] in Serum or PlasmaOrdered By: Carmen Neely on 29-19-9999Trpwgocwshs [Mass/Vol]116 mg/iBLiy373-108 [facility] LimaComment on above:Chol less than 200 mg/dl low riskChol 201-239 mg/dl borderline riskChol 240 mg/dl and greater high riskResult Comment: Chol less than 200 mg/dl low risk Chol 201-239 mg/dl borderline risk Chol 240 mg/dl and greater high riskPerformed By: #### LIPID #### [facility] [address] [place] [address] USACholesterol in LDL Calc [Mass/Vol]Ordered By: Carmen Neely on 87-85-2495Undtgaqeztx in LDL [Mass/Vol]48 mg/dL0-100[facility] LimaComment on above:LDL ATP III CLASSIFICATIONLDL less than 100 mg/dL OptimalLDL 100-129 mg/dL Near or above gdtefjxIEQ323-550 mg/dL Borderline highLDL 160-189 mg/dL HighLDL greater than 189 mg/dL Very high Cholesterol in VLDL Calc [Mass/Vol]Ordered By: Carmen Neely on 09-08-2023 Cholesterol in VLDL [Mass/Vol]16 mg/dLKindred Hospital LimaLipid Panelon 46-34-0129YVN Cholesterol,Lwhwfhlfgz56 mg/dLNormal0-100The [facility] Access Hospital Physician GroupComment on above:Result Comment: LDL ATP III CLASSIFICATION LDL less than 100 mg/dL Optimal LDL 100-129 mg/dL Near or above optimal LDL 130-159 mg/dL Borderline high LDL 160-189 mg/dL High LDL greater than 189 mg/dL Very highPerformed By: #### LIPID #### [facility] [address] [place] [id number] USATriglyceride w/Uzclye19 mg/dLNormal0-149The [facility] Access Hospital Physician GroupComment on above:Result Comment: TRIG ATP III CLASSIFICATION TRIG less than 150 mg/dL Normal TRIG 150-199 mg/dL Borderline high TRIG 200-500 mg/dL High TRIG greater than 500 mg/dL Very high Standard traceable to the Center for Disease Conrtrol and Prevention (CDC) test method.Performed By: #### LIPID #### [facility] [address] [id number] USAVLDL TTNGHSOIDBK69 mg/dLNormalThe Critical Access Hospital Physician GroupComment on above:Performed By: #### LIPID #### [facility] [address] [id number] USASerum or plasma high density lipoprotein (HDL) cholesterol measurementOrdered By: Carmen Neely on 09-05-8623Hhtcfcabkea in HDL [Mass/Vol]51 mg/pQWwrqeh58-93CmtzczhviKindred Hospital LimaComment on above: HDL CHOL ATP-III CLASSIFICATION Cardiovascular RiskHDL > or equal to 60 mg/dL LOWHDL < 40 mg/dL HIGHResult Comment: HDL CHOL ATP-III CLASSIFICATION Cardiovascular Risk HDL > or equal to 60 mg/dL LOW HDL < 40 mg/dL HIGHPerformed By: #### LIPID #### [place] [id number] USASerum or plasma total cholesterol/high density lipoprotein (HDL) cholesterol mass ratOrdered By: Carmen Neely on 09-08-2023 Cholesterol.total/Cholesterol in HDL [Mass ratio]2.3 {ratio}Normal<5.0Kindred Hospital LimaComment on above:Result Comment: PERFORMED BY: [facility] [address] [id number] PATHOLOGIST UTILITIES SERVICE INVESTIGATOR HECTOR MARTIN M.D.Performed By: #### LIPID #### [facility] [address] [id number] USATriglyceride [Mass/volume] in Serum or PlasmaOrdered By: Carmen Neely on 41-72-3914Ybqkvkuapgnb [Mass/Vol]84 mg/dL0-149[facility] Hospital LimaComment on above:TRIG ATP III CLASSIFICATIONTRIG less than 150 mg/dL NormalTRIG 150-199 mg/dL Borderline highTRIG 200-500 mg/dL High TRIG greater than 500 mg/dL Very highStandard traceable to the Center for Disease Conrtrol and Prevention (CDC) test method.THYROID STIMULATING HORMONEon 12-34-1901WKC Qn1.730 m[IU]/L0.270 - 4.200 mIU/LCleveland ClinicBasic metabolic 2000 panelon 26-88-6714Imvwg gap [Moles/Vol]10 mmol/L9 - 18 mmol/LCleveland ClinicCalcium [Mass/Vol]10.2 mg/dL8.5 - 10.2 mg/dLRegency Hospital [facility] EastChloride [Moles/Vol]102 mmol/L97 - 105 mmol/LCleveland ClinicCO2 [Moles/Vol]25 mmol/L22 - 30 mmol/LCleveland ClinicCreatinine [Mass/Vol]1.20 mg/dL0.73 - 1.22 mg/dL [facility] EastEstimated Glomerular Filtration Rate68 mL/min/1.73m>=60 mL/min/1.73mCleveland ClinicGlucose [Mass/Vol]101 mg/aUDxir57 - 99 mg/dL [facility] EastPotassium [Moles/Vol]3.7 mmol/L3.7 - 5.1 mmol/LC[facility] Clinic Sodium [Moles/Vol]137 mmol/L136 - 144 mmol/LCleveland ClinicUrea nitrogen [Mass/Vol]16 mg/dL9 - 24 mg/dLRegency Hospital [facility] EastCB W Auto Differential panel (Bld)on 23-55-5442Bptlgxyle (Bld) [#/Vol]0.03 10*3/uL<0.11 k/uLCleThe Christ Hospital Basophils/100 WBC (Bld)0.4 %[facility] EastDifferential cell count method Nom (Bld)AutoCleveland ClinicEosinophils (Bld) [#/Vol]0.03 10*3/uL<0.46 k/uL [facility] EastEosinophils/100 WBC (Bld)0.4 %[facility] EastErythrocyte distribution width (RBC) [Ratio]13.3 %11.5 - 15.0 %[facility] EastHematocrit (Bld) [Volume fraction]43.2 %39.0 - 51.0 %[facility] EastHemoglobin (Bld) [Mass/Vol]14.3 g/dL13.0 - 17.0 g/dLRegency Hospital Cleveland EastImmature granulocytes (Bld) [#/Vol]0.03 10*3/uL<0.10 k/uLRegency Hospital Cleveland EastImmature granulocytes/100 WBC (Bld) 0.4 %[facility] EastLymphocytes (Bld) [#/Vol]1.63 10*3/uL1.00 - 4.00 k/uL [facility] EastLymphocytes/100 WBC (Bld)20.2 %[facility] HospitalH (RBC) [Entitic mass]34.0 pg26.0 - 34.0 pgClevelCuyuna Regional Medical CenterHC (RBC) [Mass/Vol]33.1 g/dL30.5 - 36.0 g/dLUC West Chester HospitalV (RBC) [Entitic vol]102.6 fPCjeg85.0 - 100.0 fLCleveland ClinicMonocytes (Bld) [#/Vol]0.78 10*3/uL<0.87 k/uLRegency Hospital Cleveland EastMonocytes/100 WBC (Bld)9.7 %[facility] EastNeutrophils (Bld) [#/Vol]5.55 10*3/uL1.45 - 7.50 k/uLRegency Hospital Cleveland EastNeutrophils/100 WBC (Bld)68.9 %[facility] EastNucleated RBC (Bld) [#/Vol]<0.01 k/uLRegency Hospital Cleveland EastNucleated RBC/100 WBC (Bld) [Ratio]0.0 /100 WBCRegency Hospital Cleveland EastPlatelet mean volume (Bld) [Entitic vol]9.4 fL9.0 - 12.7 [facility] (d) [#/Vol]226 10*3/uL150 - 400 k/[facility] Memorial HospitalRB (d) [#/Vol]4.21 10*6/uL4.20 - 6.00 m/[facility] [place] (Bld) [#/Vol]8.05 10*3/uL3.70 - 11.00 k/[facility] Memorial HospitalPET+CT Guidance for localization of tumor of Skull base to mid-thigh-- W 18F-FDG Joanna 01-32-2703MLHIKCYKIC: 1. Neck: No new suspicious hypermetabolic foci [...] any questions regarding this interpretation, please call [phone]. If you are unable to reach us at the number above, please feel free to contact [facility] eRadiology at [phone].DIVISION OF RADIOLOGY* * *Final Report* * * DATE OF [...] SKELETON: There are no hypermetabolic osseous lesions. Community Development Director (topogram) images:No additional findings. DIVISION OF RADIOLOGYProvider, [facility] [place] - 02/12/2023 * * *Final Report* * [...] SKELETON: There are no hypermetabolic osseous lesions. Community Development Director (topogram) images:No additional findings. IMPRESSION IMPRESSION: 1. [...] any questions regarding this interpretation, please call [phone]. If you are unable to reach us at the number above, please feel free to contact [facility] eRadiology at [phone]. [facility] EastPET+CT Guidance for localization of tumor of Skull base to mid-thigh-- W 18F-FDG IVOrdered By: Ccf Provider on 29-73-4641[facility] GLUCOSE, BLOOD (POC)on 19-85-0906Goljyzb [Mass/Vol]108 mg/pTLtslookt59 - 99 mg/dLRegency Hospital Cleveland EastComment on above:Location:[facility], [address] [place] [address] , [place], [place], [address] The Accu-Chek Inform II glucose meter has [...] above situations. Interpretation and review of laboratory resultsAbnoProtestant HospitalPET+CT Guidance for localization of tumor of Skull base to mid-thigh-- W 18F-FDG Joanna 24-03-6616Gshbwntau Study observation (narrative)[facility] EastCT Chest W contrast Joanna 49-07-2243SBEDWZKACE: 1. Subcentimeter bilateral pulmonary nodules, stable from [...] any questions regarding this interpretation, please call [phone]. If you are unable to reach us at the number above, please feel free to contact [facility] eRadiology at [phone].DIVISION OF RADIOLOGY* * *Final Report* * * DATE OF EXAM: Sep 10 2022 8:42AM [facility] 0539 - CT CHEST W IVCON [...] fossa. Epigastric ventral abdominal wall hernia, stable. Community Development Director (topogram) images: No additional findings. DIVISION OF RADIOLOGYProvider, [facility] [place] - 09/11/2022 * * *Final Report* * * DATE OF EXAM: Sep 10 2022 8:42AM [facility] 0539 - CT CHEST W IVCON [...] fossa. Epigastric ventral abdominal wall hernia, stable. Community Development Director (topogram) images: No additional findings. IMPRESSION IMPRESSION: [...] any questions regarding this interpretation, please call [phone]. If you are unable to reach us at the number above, please feel free to contact [facility] at [phone]. [facility] HospitalCT Neck WO contraston 09-10-2022* * *Final Report* * * DATE OF EXAM: Sep 10 2022 8:36AM [facility] 0509 - CT NECK SOFT TISSUE [...] any questions regarding this interpretation, please call [phone]. If you are unable to reach us at the number above, please feel free to contact [facility] at [phone].DIVISION OF RADIOLOGYProvider, [facility] [place] - 09/10/2022 * * *Final Report* * * DATE OF EXAM: Sep 10 2022 8:36AM [facility] 0509 - CT NECK SOFT TISSUE [...] any questions regarding this interpretation, please call [phone]. If you are unable to reach us at the number above, please feel free to contact [facility] eRadiology at [phone]. [facility] Neck WO contrastOrdered By: Ccf Provider on 09-10-2022 [facility] Panel Informationon [id number] Study observation (narrative)[facility] AUTO DIFFon 91-91-6804CVLY #0.0 103/ulNormal 0.0-0.1The [facility] Hospital - CantonComment on above:Performed By: #### CBC #### [facility] [address] [address] [address] Herb JonesBasophils/100 WBC (Bld)0.4 %Normal0.2-2.0The [facility] Comment on above:Performed By: #### CBC #### [facility] [address] [address] [address] Herb Cannon #0.2 103/ulNormal0.0-0.7The [facility] Hospital - CantonComment on above: Performed By: #### CBC #### [facility] [address] [place] [address] Dr. Herb Chewosinophils/100 WBC (Bld)1.6 %Normal0.9-7.0The [facility] Comment on above:Performed By: #### CBC #### [facility] [address] [place] [address] Dr. Herb Chewrythrocyte distribution width (RBC) [Ratio]16.3 %Critically high 11.0-15.0The [facility] - CantonComment on above:Performed By: #### CBC #### [facility] [address] [place] [address] Dr. Herb JonesHematocrit (Bld) [Volume fraction]37.3 %Critically low42.0-54.0 The [facility] - CantonComment on above:Performed By: #### CBC #### [facility] [address] [place] [address] Dr. Herb JonesHemoglobin (Bld) [Mass/Vol]12.5 g/dLCritically low14.0-18.0The [facility] - CantonComment on above:Performed By: #### CBC #### [facility] [address] [place] [address] Dr. Herb Haley #0.03 10e3/ulNormal0.00-0.03The [facility] - CantonComment on above:Performed By: #### CBC #### [facility] [address] [place] [address] Dr. Herb Haley %0.3 %Normal0.0-0.5The [facility] - CantonComment on above: Performed By: #### CBC #### [facility] [address] [address] [address] Herb Castro #1.0 103/ulCritically low1.2-3.8The [facility] Comment on above:Performed By: #### CBC #### [facility] [address] [address] [address] Herb Glasshocytes/100 WBC (Bld)9.6 %Critically low20.5-60.0The [facility] - CantonComment on above:Performed By: #### CBC #### [facility] [address] [address] [address] Herb Mathis DIFF REQNONormalThe [facility] Hospital - CantonComment on above: Performed By: #### CBC #### [facility] [address] [address] [address] Herb Brewster (RBC) [Entitic mass]31.9 wqIbnaht62.9-34.0The [facility] Hospital - CantonComment on above:Performed By: #### CBC #### [facility] [address] [address] [address] Herb Joshi (RBC) [Mass/Vol]33.5 g/cXVdapto45.9-35.2The [facility] on above:Performed By: #### CBC #### [facility] [address] [address] [address] Herb Joshi (RBC) [Entitic vol]95.2 fLCritically high80.0-94.0[facility] - Akronment on above:Performed By: #### CBC #### [facility] [address] [address] [address] Herb Wong #1.1 103/ulCritically high0.3-0.8The [facility] Comment on above:Performed By: #### CBC #### [facility] [address] [address] [address] Herb Kruseocytes/100 WBC (Bld)10.6 %Normal1.7-12.0The [facility] Comment on above:Performed By: #### CBC #### [facility] [address] [address] [address] Herb Donis #8.0 103/ulCritically high1.4-6.5The [facility] Comment on above:Performed By: #### CBC #### [facility] [address] [address] [address] Herb Medellinutrophils/100 WBC (Bld)77.5 %Critically high43.0-75.0The [facility] - CantonComment on above:Performed By: #### CBC #### [facility] [address] [place] [address] Dr. Herb Celayalet mean volume (Bld) [Entitic vol]8.8 fLCritically low 9.5-13.5The [facility] CantonComment on above:Performed By: #### CBC #### [facility] [address] [address] [address] Herb JonesPLT326 103/faWhexlq035-550Quy [facility] - CantonComment on above: Performed By: #### CBC #### [facility] [address] [address] [address] Herb JonesRBC3.92 106/ulCritically low4.70-6.10The [facility] - CantonComment on above:Performed By: #### CBC #### [facility] [address] [place] [address] Dr. Herb JonesWBC10.3 103/ulNormal4.0-11.0The [facility] - CantonComment on above:Performed By: #### CBC #### [facility] [address] [place] [address] Dr. Herb JonesCovid-19 PCR (CVDTB)on 94-82-4507MWMC-CoV-2 (COVID-19) RNA BLANCA+probe Ql (Unsp spec)Not detectedNormalNOT DETECTEDThe [facility] Comment on above:Result Comment: This test is not yet approved or cleared by the [place] FDA. When there are no FDA-approved or cleared tests available, and other criteria are met, FDA can make tests available under an emergency access mechanism called an Emergency Use Authorization (EUA). The EUA for this test is supported by the Food And Beverage Service Manager of Health and Human Service's (HHS's) declaration that circumstances exist to justify the emergency use of in vitro diagnostics for the detection and/or diagnosis of the virus that causes COVID- 19. This EUA will remain in effect (meaning [...] of clinical signs and symptoms consistent with SARS-CoV-2.Performed By: #### CVDTBH ####[facility] Fpm[address] [place], [place] [address]Dr. Herb ChangGROUP A STREP CULTUREon 08-30-2022S. pyogenes Ag Ql (Unsp spec)Culture Observations: NEGATIVE FOR GROUP A STREPTOCOCCUS.NormalSelect Medical Specialty Hospital - Akronment on above: Performed By: #### SSCRN, [id number] ####[facility] [address] [place], [place] [address]Dr. Herb JonesINFLUENZA A AND B AGon 08-30-2022 INFLUANEGHSEE BELOWUniversity Hospitals Health System on above:Result Comment: Negative for Flu A protein angiten. Infection due to Flu A cannot be ruled out. FluA angiten in the sample may be below the detection limit of the test. Performed By: #### INFLUAB ####[facility] [address] [id number][address] Herb ChangINFLUBNEGHSEE [facility] on above:Result Comment: Negative for Flu B protein antigen. Infection due to Flu B cannot be ruled out. FluB antigen in the sample may be below the detection limit of the test.Performed By: #### INFLUAB ####[facility] U[address] [place], [place] [address]Dr. Lizetbrandon Jones INFLUENZA A AGNegativeNormalNEGATIVE SEE COMMENTThe [facility] - CantonComment on above:Performed By: #### INFLUAB ####[facility] [address] [address]Dr. Herb Mcknight AGNegativeNormalNEGATIVE SEE COMMENTThe [facility] - CantonComment on above:Performed By: #### INFLUAB ####[facility] [address] [address]Dr. Herb JonesPROF 14(COMP METB)on 45-12-8441Kbxuisg [Mass/Vol]3.2 g/dLCritically low3.4-5.0The [facility] - CantonComment on above:Performed By: #### CMP #### [facility] [address] [place] [address] Dr. Herb JonesAlbumin/Globulin [Mass ratio]0.8 {ratio}NormalThe [facility] - CantonComment on above:Performed By: #### CMP #### [facility] [address] [address] [address] Herb HuttonP [Catalytic activity/Vol]148 U/LCritically ksal12-140Lvc [facility] CantonComment on above:Performed By: #### CMP #### [facility] [address] [address] [address] Herb Young [Catalytic activity/Vol]23 U/RTjrwpb04-28Agc [facility] CantonComment on above:Performed By: #### CMP #### [facility] [address] [address] [address] Herb Lubin gap [Moles/Vol]13.9 mmol/LNormalThe [facility] Comment on above:Performed By: #### CMP #### [facility] [address] [address] [address] Herb Andrea [Catalytic activity/Vol]22 U/DMrtkmm75-15Bku [facility] CantonComment on above:Performed By: #### CMP #### [facility] [address] [address] [address] Herb JonesBilirubin [Mass/Vol]0.6 mg/dLNormal0.2-1.0[facility] Comment on above:Performed By: #### CMP #### [facility] [address] [address] [address] Herb JonesCalcium [Mass/Vol]9.0 mg/dLNormal8.5-10.1[facility] Comment on above:Performed By: #### CMP #### [facility] [address] [address] [address] Herb JonesChloride [Moles/Vol]101 mmol/QWsmlgn91-638SalHolzer Medical Center – [place] Comment on above:Performed By: #### CMP #### [facility] [address] [address] [address] Herb JonesCO2 [Moles/Vol]21.9 mmol/DPmbets75.0-32.0[facility] Comment on above:Performed By: #### CMP #### [facility] [address] [address] [address] Herb JonesCreatinine [Mass/Vol]0.97 mg/dLNormal0.70-1.30[facility] – JacksonComment on above:Performed By: #### CMP #### [facility] [address] [address] [address] Herb ChewGFR-AF GREENLANDIC>60Normal>=60The [facility] CantonComment on above:Performed By: #### CMP #### [facility] [address] [address] [address] Herb ChewGFR-NON AF GREENLANDIC>60Normal>=60The [facility] - CantonComment on above:Performed By: #### CMP #### [facility] [address] [address] [address] Herb JonesGlobulin (S) [Mass/Vol]4.2 g/dLNormalThe [facility] CantonComment on above:Performed By: #### CMP #### [facility] [address] [address] [address] Herb JonesGlucose [Mass/Vol]102 mg/hSAgcvhk90-737NnvHolzer Medical Center – [place] Comment on above:Performed By: #### CMP #### [facility] [address] [address] [address] Herb JonesPotassium [Moles/Vol]3.8 mmol/LNormal3.5-5.1The [facility] Comment on above:Performed By: #### CMP #### [facility] [address] [address] [address] Herb JonesProtein [Mass/Vol]7.4 g/dLNormal6.4-8.2The [facility] Comment on above:Performed By: #### CMP #### [facility] [address] [address] [address] Herb JonesSodium [Moles/Vol]133 mmol/LCritically pub128-568Jah [facility] CantonComment on above:Performed By: #### CMP #### [facility] [address] [address] [address] Herb JonesUrea nitrogen [Mass/Vol]12.0 mg/dLNormal7.0-18.0The [facility] CantonComment on above:Performed By: #### CMP #### [facility] [address] [address] [address] Herb JonesUrea nitrogen/Creatinine [Mass ratio]12.4 mg/mgNoCleveland Clinic Fairview HospitalComment on above:Performed By: #### CMP #### [facility] [address] [address] [address] Herb JonesSTREPT SCREENon 66-76-2733XRLSP SCREEN ANegativeNormalNEGATIVEThe [facility] CantonComment on above:Performed By: #### SSCRN, GRASTCX ####[facility] [address] [address]Dr. Herb Jones SYMPTOMATIC COVID-19 ANTIGENon 73-30-3641MRF StatementSEE BELOWSelect Medical Specialty Hospital - [facility], IncComment on above:Result Comment: This test has not been FDA [...] section 564(b)(1) of the Act, 21 U.S.C. 360bbb- 3(b)(1), unless the declaration is terminated or authorization is revoked sooner.Performed By: #### CVDAGS ####[facility] [address] [address]Dr. Herb JonesUzbsiMWJM-QcG-4 (COVID-19) RNA BLANCA+probe Ql (Unsp spec)NegativeNormalNEGATIVEThe [facility] CantonComment on above:Performed By: #### CVDAGS ####[facility] [address] [place], [place] [address]Dr. Herb ChangXR CHEST 1 Von 62-04-8135XP CHEST 1 VEXAM: XR CHEST 1 V HISTORY: COUGH COMPARISON: 05/27/2021 TECHNIQUE: Chest X-ray AP, 1 view FINDINGS: Support devices: None. Lungs/pleura: No consolidation, effusion, or pneumothorax. Heart and mediastinum: Normal contours. Bones: No acute abnormality identified. Impression: No consolidation. However, pneumonia can be radiographically occult in the early stage. Electronically authenticated by: EMILY MUNROE Date: 2022-08-30 16:36NoCleveland Clinic Fairview HospitalLIPID PROFILEon 50-01-6643GOHY-HDL RATIO NORMSEE BELOWSelect Medical Specialty Hospital - [facility], IncComment on above:Result Comment: 3.3 - 4.4 LOW RISK 4.4 - 7.1 AVERAGE RISK 7.1 - 11.0 MODERATE RISK >11.0 HIGH RISKPerformed By: #### LIPID, ALT, AST ####[facility] [address] [address]Dr. Herb JonesCholesterol [Mass/Vol]111 mg/dLNormal<=200The [facility] Community Hospitalment on above:Performed By: #### LIPID, ALT, AST ####[facility] [address] [address]Dr. Herb Jones Cholesterol in HDL [Mass/Vol]46 mg/xCRvsxmu84-52Lom [facility] on above:Performed By: #### LIPID, ALT, AST ####[facility] [address] [address]Dr. Herb JonesCholesterol in LDL [Mass/Vol] 56.4 mg/dLSelect Medical Specialty Hospital - [facility], IncCommunising memorial hospital on above:Performed By: #### LIPID, ALT, AST ####[facility] [address] [address]Dr. Herb JonesCholesterol.total/Cholesterol in HDL [Mass ratio]2.4 {ratio} NormalThe [facility] on above:Performed By: #### LIPID, ALT, AST ####[facility] [address] [address]Dr. Yilan ChangHDL NORMAL> or = 60 mg/dl - LOW CARDIOVASCULAR RISK <40 mg/dl - HIGH CARDIOVASCULAR RISKSelect Medical Specialty Hospital - [facility], IncCommunising memorial hospital on above:Performed By: #### LIPID, ALT, AST ####[facility] [address] [place], [place] [address]Dr. Yilan ChangLDL CALC NORMALSEE BELOWSelect Medical Specialty Hospital - [facility], IncCommunising memorial hospital on above:Result Comment: <100 mg/dl OPTIMAL 100 - 129 mg/dl NEAR OR ABOVE OPTIMAL 130 - 159 mg/dl BORDERLINE HIGH 160 - 189 mg/dl HIGH >190 mg/dl VERY HIGHPerformed By: #### LIPID, ALT, AST ####[facility] [address] [address]Dr. Herb JonesTriglyceride [Mass/Vol]43 mg/dLNormal<=150[facility] JacksonCommunising memorial hospital on above:Performed By: #### LIPID, ALT, AST ####[facility] [address] [address]Dr. Lizetlan ChangVLDL CALC8.6 mg/dLNoCleveland Clinic Fairview HospitalComment on above:Performed By: #### LIPID, ALT, AST ####[facility] [address] [place], [place] [address]AlDr. Herb Edmondson on 66-75-4225HFJ [Catalytic activity/Vol]18 U/GCmmkmd40-38XwtHolzer Medical Center – [facility] Comment on above:Performed By: #### LIPID, ALT, AST #### [facility] [address] [place], [place] [address] Dr. Herb Celis 82-17-8775THH [Catalytic activity/Vol]20 U/NSkoyim86-72Sgo [facility] - CantonComment on above:Performed By: #### LIPID, ALT, AST #### [facility] [address] [place], [place] [address] Dr. Herb Palma Visit (Cardiology)on 68-01-4941Lclrra-up visit Diagnoses/Problems Assessed Mixed hyperlipidemia (272.2) (E78.2) PVD (peripheral vascular disease) (443.9) (I73.9) Status post left lower extremity stenting TIA (transient ischemic attack) (435.9) (G45.9) Former smoker (V15.82) (Z87.891) quit 05/22/22 Overweight with body mass index (BMI) of 25 to 25.9 in adult (278.02,V85.21) (E66.3,Z68.25) Orders Abnormal EKG IO EKG Electrocardiogram- 12 Lead; Status:Complete; Done: 10Jun2022 Mixed hyperlipidemia Start: Atorvastatin Calcium 20 MG Oral Tablet; TAKE 1 TABLET AT BEDTIME ALT - Alanine Aminotransferase, Serum; Status:Active - Retrospective Authorization; Requested for:08Aug2022; AST; Status:Active - Retrospective Authorization; Requested for:67Ssw9815; Lipid Panel; Status:Active - Retrospective Authorization; Requested for:83Myr0230; PVD (peripheral vascular disease) Renew: Aspirin 81 MG Oral Tablet Delayed Release; TAKE 1 TABLET DAILY SocHx: Former smoker Tobacco Use Screening; Status:Complete; Done: 10Jun2022 SocHx: Former smoker, Overweight with body mass index (BMI) of 25 to 25.9 in adult Healthy Weight Tips; Status:Complete - Retrospective Authorization; Done: 10Jun2022 Some eating tips that can help you lose weight.; Status:Complete - Retrospective Authorization; Done: 10Jun2022 Unlinked Stop: Amiodarone HCl - 200 MG [...] of your visit. obtain [facility]VR test [facility] Follow up in 6 months Chief [...] had PVR study several months ago at [facility] which I requested. His cardiac and pulmonary [...] will handle it with other class of medicati ons. 3?longstanding tobacco abuse that ended recently. Encouraged [...] 1 TABLET DAILY. Omeprazole (more content not included)...NormalUH TouchworksTobacco Screening.on 85-12-9675Ecmvurq use status CPHSb) NoMP-[facility] [address] DO Work Phone: Tobacco Screening.YesMP-[facility]Dis[facility] [address] [place] Work Phone: CBC W Auto Differential panel (Bld)on 05-20-2022 Basophils (Bld) [#/Vol]0.07 10*3/uL<0.11 k/uLRegency Hospital Cleveland EastBasophils/100 WBC (Bld)1.1 %[facility] EastDifferential cell count method Nom (Bld)AutoCleveland ClinicEosinophils (Bld) [#/Vol]0.08 10*3/uL<0.46 k/uLRegency Hospital Cleveland East Eosinophils/100 WBC (Bld)1.3 %[facility] EastErythrocyte distribution width (RBC) [Ratio]14.5 %11.5 - 15.0 %[facility] EastHematocrit (Bld) [Volume fraction]43.8 %39.0 - 51.0 %[facility] EastHemoglobin (Bld) [Mass/Vol]14.1 g/dL 13.0 - 17.0 g/dLRegency Hospital Cleveland EastImmature granulocytes (Bld) [#/Vol]0.05 10*3/uL <0.10 k/uLRegency Hospital Cleveland EastImmature granulocytes/100 WBC (Bld)0.8 %[facility] EastLymphocytes (Bld) [#/Vol]1.33 10*3/uL1.00 - 4.00 k/uLRegency Hospital Cleveland East Lymphocytes/100 WBC (Bld)21.8 %[facility] HospitalH (RBC) [Entitic mass]31.9 pg 26.0 - 34.0 pgCSelect Medical TriHealth Rehabilitation HospitalHC (RBC) [Mass/Vol]32.2 g/dL30.5 - 36.0 g/dL [facility] HospitalV (RBC) [Entitic vol]99.1 fL80.0 - 100.0 fLCTrumbull Regional Medical Center Monocytes (Bld) [#/Vol]0.72 10*3/uL<0.87 k/uLRegency Hospital Cleveland EastMonocytes/100 WBC (Bld)11.8 %[facility] EastNeutrophils (Bld) [#/Vol]3.86 10*3/uL1.45 - 7.50 k/uL [facility] EastNeutrophils/100 WBC (Bld)63.2 %[facility] EastNucleated RBC (Bld) [#/Vol]<0.01 k/uLRegency Hospital Cleveland EastNucleated RBC/100 WBC (Bld) [Ratio]0.0 /100 WBCRegency Hospital Cleveland EastPlatelet mean volume (Bld) [Entitic vol]9.3 fL9.0 - 12.7 fLClevelMercy Health Willard HospitalPlatelets (Bld) [#/Vol]281 10*3/uL150 - 400 k/uLRegency Hospital Cleveland EastRBC (Bld) [#/Vol]4.42 10*6/uL4.20 - 6.00 m/uLRegency Hospital Cleveland EastWBC (Bld) [#/Vol]6.11 10*3/uL3.70 - 11.00 k/uLRegency Hospital Cleveland EastComprehensive metabolic 2000 panelon 00-12-8299Mdjlquy [Mass/Vol]4.6 g/dL3.9 - 4.9 g/dLNewland ClinicALP [Catalytic activity/Vol]119 U/LHigh38 - 113 U/LCleveland ClinicALT [Catalytic activity/Vol]15 U/L10 - 54 U/LCleveland ClinicAnion gap [Moles/Vol]11 mmol/L9 - 18 mmol/LCleveland ClinicAST [Catalytic activity/Vol]21 U/L14 - 40 U/LCleveland ClinicBilirubin [Mass/Vol]0.5 mg/dL0.2 - 1.3 mg/dLNewland ClinicCalcium [Mass/Vol]9.8 mg/dL8.5 - 10.2 mg/dLNewland ClinicChloride [Moles/Vol]102 mmol/L97 - 105 mmol/LCleveland ClinicCO2 [Moles/Vol]23 mmol/L22 - 30 mmol/L [facility] EastCreatinine [Mass/Vol]1.16 mg/dL0.73 - 1.22 mg/dLRegency Hospital Cleveland East Estimated Glomerular Filtration Rate72 mL/min/1.73m>=60 mL/min/1.73mCleveland ClinicGlucose [Mass/Vol]106 mg/yGGlaz27 - 99 mg/dLRegency Hospital Cleveland EastPotassium [Moles/Vol]4.7 mmol/L3.7 - 5.1 mmol/LCleveland ClinicProtein [Mass/Vol]7.4 g/dL 6.3 - 8.0 g/dLNewland ClinicSodium [Moles/Vol]136 mmol/L136 - 144 mmol/L [facility] EastUrea nitrogen [Mass/Vol]18 mg/dL9 - 24 mg/dLRegency Hospital Cleveland EastCT Chest W contrast Joanna 13-09-3741PIQVUXJGID: 1. 3 mm right upper lobe nodule [...] any questions regarding this interpretation, please call [phone]. If you are unable to reach us at the number above, please feel free to contact [facility] eRadiology at [phone].DIVISION OF RADIOLOGY* * *Final Report* * * DATE OF EXAM: Apr 14 2022 11:45AM [facility] 0539 - CT CHEST W IVCON [...] clips within the gallbladder fossa are noted. Community Development Director (topogram) images: No additional findings. DIVISION OF RADIOLOGYProvider, [facility] [place] - 04/15/2022 * * *Final Report* * * DATE OF EXAM: Apr 14 2022 11:45AM [facility] 0539 - CT CHEST W IVCON [...] clips within the gallbladder fossa are noted. Community Development Director (topogram) images: No additional findings. IMPRESSION IMPRESSION: [...] any questions regarding this interpretation, please call [phone]. If you are unable to reach us at the number above, please feel free to contact [facility] eRadiology at [phone]. [facility]lower HospitalMRI SHOULDER RT WO CONon 88-37-0042BBX SHOULDER RT WO CONEXAMINATION: MRI SHOULDER RT WO CON HISTORY: Pain [...] Electronically authenticated by: BELLA PEREIRA Date: 2022-04-15 16:08[facility], IncCREATININE BLDOrdered By: Corby Zaman on 89-52-3870Jwrvdnbhzh [Mass/Vol]1.16 mg/dL0.73 - 1.22 mg/dLRegency Hospital Cleveland EastGFR/1.73 sq M.predicted among non-blacks MDRD (S/P/Bld) [Vol rate/Area]72 mL/min/{1.73_m2}- PINF [facility] EastComment on above:Estimated Glomerular Filtration Rate (eGFR) is calculated using the 2020 CKD-EPI creatinine equation. This equation utilizes serum creatinine, sex, and age as parameters. The creatinine assay has traceable calibration to isotope dilution-mass spectrometry. Refer to KDIGO guidelines for clinical interpretation. In patients with unstable renal function, e.g. those with acute kidney injury, the eGFRmay not accurately reflect actual GFR. Interpretation and review of laboratory resultsNormalCleveland Monticello HospitalCleThe Christ HospitalCT Neck W contrast Joanna 24-10-3691EQCQQQTKWV: Treatment related changes in the right oropharynx. [...] any questions regarding this interpretation, please call [phone]. 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 Otherwise, bilateral parotid glands are unremarkable. Equip Maint Eng spaces appear normal. 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 Otherwise, bilateral parotid glands are unremarkable. Equip Maint Eng spaces appear normal. Infrahyoid Neck: Mucosal/mucosal edema [...] no hydrocephalus. Cervical spine (more content not included)...[facility] EastCT Neck W contrast IVOrdered By: Ccf Provider on 63-53-1791Hspsiijep ClinicNo Panel Informationon 19-05-4449Qbaxebddk Study observation (narrative)[facility] EastEchocardiogram on 59-66-0937PjfrwdkcvprpifpqGotjt[address], [place] [address] TRANSTHORACIC ECHOCARDIOGRAM REPORT Patient Name: ALEJO FLOYD Reading Physician: [id number] Carmen Neely MD, [facility] Study Date: 01/13/2022 Referring [id number] CARMEN NEELY Physician: MRN/PID: [id number] PCP: Gildardo Lacy Accession/Order#: [id number] [facility] Location: Date of : 1960 Fellow: Gender: M Nurse: Admit Date: E Learning Manager: Tamika Howard RDCS, [facility] Height: 177.80 cm CC Report to: Weight: 74.39 kg Study Type: Echocardiogram BSA: 1.92 m2 Blood Pressure: 152 /80 mmHg Diagnosis/ICD: R94.31-Abnormal electrocardiogram [ECG] [EKG]; R06.00-Dyspnea, unspecified Indication: COPD, Tobacco Abuse, Peripheral Vascular Disease, Left Femoral Artery Stent, TIA, Depression Procedure/CPT: Echo Complete w Full Doppler-51588 Study Detail: The following Echo studies were [...] visualized. There is no indication of pulmonic valveregurgitation. Pericardium: There is no pericardial effusion noted. [...] 0.8 m/s (0.6-0.9m/s) PV Max P.3 mmHg [id number] Carmen Neely MD, FACC Electronically signed on 01/14/2022 at 5:13:15 PM Final NormalPikes Peak Regional HospitalEchocardiographyPlease click on the link to view the study imagesNormalPatrick [place]ille [address]A [place] Work Phone: Falls Screening (Age 18+)on 52-74-5193Ovdn risk assessmenta) No falls within the last yearVirginia Hospital-Dis[facility] [address] [place] Work Phone: NOH CARDIAC STRESS/REST INJECTIONon 05-76-2373WSG CARDIAC STRESS/REST INJECTIONMRN: [id number] Patient Name: ALEJO FLOYD STUDY: MYOCARDIAL PERFUSION STRESS TEST WITH LEXISCAN Performing facility: [facility], [address] [place] [address], Suite [facility], [place] [address] [facility] Provider: Carmen Neely MD, FACC PCP: Dr. Caren Lacy Supervising provider: Grisel Woods MD, [facility] INDICATION: Abnormal EKG; Dyspnea HISTORY: Gender: M; Age: 61 y/o ; Height: 177.8 cm; Weight: 74.9169939 kg. Abnormal EKG; SOB; COPD; PVD TIA Throat Cancer Currently smoking. COMPARISON: No comparison. ACCESSION NUMBER(S): [id number]; [id number]; [id number] ORDERING CLINICIAN: CARMEN NEELY TECHNIQUE: ONE DAY [...] for comparison. Electronically signed by: YASH WOODARD MDEncompass Health Rehabilitation Hospital of ErieNo Panel Informationon 29-86-8382PsvovdMA-[facility] [address] DO Work Phone: GLUCOSE, BLOOD (POC)on 23-95-3286Pzbnumv [Mass/Vol]102 mg/oDGduiledd80 - 99 mg/dLMercy Health Defiance Hospital on above:Location:[facility], [address] [place] [address] , [place], [place], [address] The Accu-Chek Inform II glucose meter has [...] above situations. Interpretation and review of laboratory resultsAbnormalCselect medical specialty hospital - youngstownand ProMedica Flower HospitalPET+CT Guidance for localization of tumor of Skull base to mid-thigh-- W 18F-FDG Joanna 58-90-4962SKNOTUXZEM: 1. NECK: * No definite FDG avid [...] any questions regarding this interpretation, please call [phone]. If you are unable to reach us at the number above, please feel free to contact [facility] eRadiology at [phone].DIVISION OF RADIOLOGY* * *Final Report* * * DATE OF [...] possibly secondary to muscle spasm or posture. Community Development Director (topogram) images: No additional findings. DIVISION OF RADIOLOGYProvider, [facility] [place] - 12/23/2021 * * *Final Report* * [...] possibly secondary to muscle spasm or posture. Community Development Director (topogram) images: No additional findings. IMPRESSION IMPRESSION: [...] any questions regarding this interpretation, please call [phone]. If you are unable to reach us at the number above, please feel free to contact [facility] eRadiology at [phone]. [facility] EastRadiology Study observation (narrative)[facility] HospitalT+CT Guidance for localization of tumor of Skull base to mid-thigh-- W 18F-FDG IV Ordered By: Ccf Provider on 18-69-5537Vtiuothab ClinicRegional Health Rapid City Hospitals Screening (Age 18+) on 29-42-8416Ojmof depression screening assessmentYesMWaldo Hospital [facility] [place] 250 DO Work Phone: Fall risk assessmentc) Not medically indicatedKindred Hospital [facility] - [facility] [address] DO Work Phone: Tobacco use status CPHSa) YesKindred Hospital Seattle - [facility] [place] 250 DO Work Phone: Falls Screening (Age 18+)YesKindred Hospital Seattle - [facility] [place] 250 DO Work Phone: Falls Screening (Age 18+)1-Several daysKindred Hospital Seattle - [facility] 250 DO Work Phone: Falls Screening (Age 18+)3-Nearly every dayKindred Hospital Seattle - [facility] 250 DO Work Phone: Falls Screening (Age 18+)0-Not at all-[facility] 250 DO Work Phone: Falls Screening (Age 18+)Somewhat DifficultKindred Hospital Seattle - [facility] 250 DO Work Phone: Office Visit (Cardiology)on 94-99-7295Jaymvs-up visit Diagnoses/Problems Assessed Dyspnea (786.09) (R06.00) Abnormal EKG (794.31) (R94.31) PVD (peripheral vascular disease) (443.9) (I73.9) TIA (transient ischemic attack) (435.9) (G45.9) Body mass index (BMI) of 23.0 to 23.9 in adult (V85.1) (Z68.23) Current smoker (305.1) (F17.200) 1 pack of cigarettes every 4-5 days Depression (311) (F32.A) Orders Abnormal EKG, Dyspnea Echocardiogram; Status:Hold For - Scheduling,Retrospective Authorization; Requested for:70Skg4281; NM Cardiac Stress/Rest Nuclear Med Order; Status:Hold For - Scheduling,Retrospective Authorization; Requested for:69Jxv7471; Radiologist to Determine Optimal Study : Y [...] we can help. You may also call [phone] City GroupNOW for free resources and assistance.; Status:Complete - Retrospective Authorization; Done: 72Xur9099 Tobacco Use Screening; Status:Complete; Done: 59Qpe9120 Unlinked Stop: amLODIPine Besylate 5 MG Oral [...] records from Dr. Shyanne Najera MD from [facility] Follow up in 6 months I, Arlette Strange LPN, am scribing for and in the presence of, Dr. Carmen Neely MD Chief Complaint ALEJO MARIEL is being seen for a consultation for SRE. 61-year-old -[place] who is in my office for the first time to establish relationship with cardiology. The patient has history of active tobacco abuse and PAD involving mostly the left femoral artery where he had stenting done several years ago in [place]. He has no previous cardiac catheterizations or myocardial ischemia evaluation. He does have history of arrhythmias of unknown nature and is currently on amiodarone therapy. He does not recall having atrial fibrillation and has no previous cardioversions. We have no previous records to confirm the indication for amiodarone therapy. Don have COPD and uses inhalers. Has been on metoprolol but no DION inhibitor's and no calcium channel blockers. He has no hypertension at the present time. His blood pressure in the office today wasbelow normal. He has no syncope orthopnea PND [...] but has history of TIA. EKG reveals sinusrhythm with diffuse ST and T changes. He [...] check his lipid profile. Given his vascular diseasehe would likely need to be on statin 7?history of TIA, currently on aspirin. He would likely benefit from statin therapy Surgical History Problems History of Complete colonoscopy History of Hernia repair History of Lung surgery History of Splenectomy Current Meds Medication NameInstruction Albuterol 90 MCG/ACT AERS Albuterol Sulfate (2.5 MG/3ML) (more content not included)...NormalUH Touchworks US ARTERY LEG BILon [id number] ARTERY LEG BILEXAMINATION: US ARTERY LEG BEBA HISTORY: General symptom COMPARISON: No [...] Electronically authenticated by: BELLA PEREIRA Date: 2021-11-26 07:[address] [place], [place] [address]CT [facility] GABBY CONon [id number] [facility] CONEXAM: CT [facility] GABBY CON HISTORY: DORSALGIA, UNSPECIFIED COMPARISON: CT of the [...] Electronically authenticated by: DARIEN HARP Date: 2021-11-20 10:19[facility] URINE PROFILEon [id number] Ql (U)NegativeNormal NEGATIVEHolzer Medical Center – JacksonComment on above:Performed By: #### ERUR #### [facility] [address] [place] [address] Dr. Herb JonesClbarney (U)CLEARNormalCLEARHolzer Medical Center – JacksonComment on above: Performed By: #### ERUR #### [facility] [address] [place] [address] Dr. Herb Biswas (U)YELLOWNormalYELLOWHolzer Medical Center – JacksonComment on above: Performed By: #### ERUR #### [facility] [address] [place] [address] Dr. Herb Tee micrscopic examination will be performed if indicated. NormalThe [facility] CantonComment on above:Performed By: #### ERUR #### [facility] [address] [place] [address] Dr. Herb JonesGlucose Ql (U)NegativeNormalNEGATIVEHolzer Medical Center – JacksonComment on above:Performed By: #### ERUR #### [facility] [address] [place] [address] Dr. Herb JonesHemoglobin Ql (U)NegativeNormalNEGATIVEThe [facility] Comment on above:Performed By: #### ERUR #### [facility] [address] [place] [address] Dr. Herb Cruz Ql (U)NegativeNormalNEGATIVEHolzer Medical Center – JacksonComment on above:Performed By: #### ERUR #### [facility] [address] [place] [address] Dr. Herb JonesLEUKOCYTESNegativeNormalNEGATIVEThe [facility] CantonComment on above:Performed By: #### ERUR #### [facility] [address] [place] [address] Dr. Herb Sanchez Ql (U)NegativeNormalNEGATIVEHolzer Medical Center – JacksonComment on above:Performed By: #### ERUR #### [facility] [address] [place] [address] Dr. Herb Smith (U)7.0 [pH]Normal5-9The [facility] CantonComment on above: Performed By: #### ERUR #### [facility] [address] [place] [address] Dr. Herb JonesSPEC GRAVITY1.586Lcygpn2.005-<=1.025The [facility] - CantonComment on above:Performed By: #### ERUR #### [facility] [address] [place] [address] Dr. Herb Freeman PROTEINNegativeNormalNEGATIVE/ TRACEHolzer Medical Center – Jackson Comment on above:Performed By: #### ERUR #### [facility] [address] [place] [address] Dr. Herb Pal MICRO INDNOT INDICATEDNormalThHarrison Community HospitalComment on above:Performed By: #### ERUR #### [facility] [address] [place] [address] Dr. Herb Salgado Qn (U)4 {Shon'U}/dLAbnormal0.2 - 1.0The [facility] CantonComment on above:Performed By: #### ERUR #### [facility] [address] [place] [address] Dr. Herb Dean METABOLIC PANELon 12-94-9742Pznknjv [Mass/Vol]8.6 mg/dL Normal8.6-10.3The [facility]on HospitalComment on above:Order Comment: No: Do not add to previous drawPerformed By: #### 10057, 23594, 06921 #### [facility] [address] [place] [address], USAChloride [Moles/Vol]108 mmol/CFbby27-247Gct [facility] HospitalComment on above:Order Comment: No: Do not add to previous drawPerformed By: #### 42946, 90549, 05208 #### [facility] [address] [place] [address], USACO2 [Moles/Vol]20 mmol/GMsd06-80Tec [facility] HospitalComment on above:Order Comment: No: Do not add to previous draw Performed By: #### 23370, 51571, 47967 #### [facility] [address] [place] [address], USACreatinine [Mass/Vol]0.83 mg/dLNormal0.70-1.30The [facility] HospitalComment on above:Order Comment: No: Do not add to previous drawPerformed By: #### 18767, 36497, 47881 #### [facility] [address] [place] [address], USAGFR/1.73 sq M.predicted among blacks MDRD (S/P/Bld) [Vol rate/Area]mL/min/{1.73_m2}Normal>60The [facility] Comment on above:Order Comment: No: Do not add to previous drawPerformed By: #### 71742, 90483, 41365 #### [facility] [address] [place] [address], USAGFR/1.73 sq M.predicted among non-blacks MDRD (S/P/Bld) [Vol rate/Area]mL/min/{1.73_m2}Normal>60The [facility] Comment on above:Order Comment: No: Do not add to previous drawPerformed By: #### 56423, 87199, 34164 #### [facility] [address] [place] [address], USAGlucose [Mass/Vol]71 mg/vZWxbsxu89-827Cav [facility] HospitalComment on above:Order Comment: No: Do not add to previous drawPerformed By: #### 66684, 52754, 02295 #### [facility] [address] [place] [address], USAPotassium [Moles/Vol]3.2 mmol/LLow3.5-5.1The [facility] HospitalComment on above:Order Comment: No: Do not add to previous drawPerformed By: #### 67990, 69540, 46227 #### [facility] [address] [place] [address], USASodium [Moles/Vol]140 mmol/AYsaesz368-517Lax [facility] HospitalComment on above:Order Comment: No: Do not add to previous drawPerformed By: #### 69333, 21410, 34077 #### [facility] [address] [facility] [place] [address], USAUrea nitrogen [Mass/Vol]21 mg/dLNormal7-25The [facility] HospitalComment on above:Order Comment: No: Do not add to previous drawPerformed By: #### 85269, 94865, 54821 #### [facility] [address] [facility] [place] [address], USACBC W/DIFFon 89-00-5386GNN IMM GRANS0.0 10*3/uLNormal 0.0-0.2The [facility] HospitalComment on above:Order Comment: No: Do not add to previous drawPerformed By: #### 52319 #### [facility] [address] [place] [address], USAABS NEUTROPHILS2.3 10*3/uLNormal1.6-7.6The [facility] HospitalComment on above:Order Comment: No: Do not add to previous drawPerformed By: #### 20984 #### [facility] [address] [place] [address], USABasophils (Bld) [#/Vol]0.0 10*3/uLNormal0.0-0.2The [facility] HospitalComment on above:Order Comment: No: Do not add to previous drawPerformed By: #### 07471 #### [facility] [address] [facility] [place] [address], USABasophils/100 WBC (Bld)0.3 %Normal0.0-1.0The [facility] HospitalComment on above:Order Comment: No: Do not add to previous drawPerformed By: #### 81102 #### [facility] [address] [facility] [place] [address], USAEosinophils (Bld) [#/Vol]0.0 10*3/uLNormal0.0-0.5The [facility] HospitalComment on above:Order Comment: No: Do not add to previous drawPerformed By: #### 97572 #### [facility] [address] [facility] [place] [address], USAEosinophils/100 WBC (Bld)0.5 %Normal0.0-6.0The [facility] HospitalComment on above:Order Comment: No: Do not add to previous drawPerformed By: #### 84785 #### [facility] [address] [facility] [place] [address], USAErythrocyte distribution width (RBC) [Ratio]17.2 %High 11.5-15.0The [facility] HospitalComment on above:Order Comment: No: Do not add to previous drawPerformed By: #### 95801 #### [facility] [address] [place] [address], USAHematocrit (Bld) [Volume fraction]32.6 %Low39.0-50.0The [facility] HospitalComment on above:Order Comment: No: Do not add to previous drawPerformed By: #### 81989 #### [facility] [address] [place] [address], USAHemoglobin (Bld) [Mass/Vol]10.7 g/dLLow13.0-17.0The [facility] HospitalComment on above:Order Comment: No: Do not add to previous drawPerformed By: #### 55245 #### [facility] [address] [place] [address], USAIMMATURE GRANS0.3 %Normal0.0-1.0The [facility] HospitalComment on above:Order Comment: No: Do not add to previous draw Performed By: #### 05800 #### [facility] [address] [place] [address], USALymphocytes (Bld) [#/Vol]0.8 10*3/uLLow1.2-4.0The [facility] HospitalComment on above:Order Comment: No: Do not add to previous drawPerformed By: #### 04141 #### [facility] [address] [place] [address], USALymphocytes/100 WBC (Bld)21.9 %Wblsrq98.0-45.0The [facility] HospitalComment on above:Order Comment: No: Do not add to previous drawPerformed By: #### 22970 #### [facility] [address] [place] [address], USAMCH (RBC) [Entitic mass]33.9 daPvjz79.0-33.0The [facility] HospitalComment on above:Order Comment: No: Do not add to previous drawPerformed By: #### 63538 #### [facility] [address] [place] [address], [facility] CITYHC (RBC) [Mass/Vol]32.8 g/oIUlocpv59.0-35.0The [facility] HospitalComment on above:Order Comment: No: Do not add to previous drawPerformed By: #### 67644 #### [facility] [address] [place] [address], [facility] HEALTH CENTERMCV (RBC) [Entitic vol]103.2 aSHmfs05.0-98.0The [facility] HospitalComment on above:Order Comment: No: Do not add to previous drawPerformed By: #### 07549 #### [facility] [address] [place] [address], [facility] HEALTH CENTERMonocytes (Bld) [#/Vol]0.5 10*3/uLNormal0.1-1.0The [facility] HospitalComment on above:Order Comment: No: Do not add to previous drawPerformed By: #### 23671 #### [facility] [address] [place] [address], GVFXUGEE20.9 %High5.0-12.0The [facility] HospitalComment on above:Order Comment: No: Do not add to previous drawPerformed By: #### 60774 #### [facility] [address] [place] [address], USANeutrophils/100 WBC (Bld)63.1 %Bqazkf62.0-72.0The [facility] HospitalComment on above:Order Comment: No: Do not add to previous drawPerformed By: #### 40841 #### [facility] [address] [place] [address], USANucleated RBC/100 WBC (Bld) [Ratio]0 %Normal0-0The [facility] HospitalComment on above:Order Comment: No: Do not add to previous drawPerformed By: #### 04597 #### [facility] [address] [place] [address], USAPLAT EKZ537 10*3/vKRnsrlv187-669Edl [facility] HospitalComment on above:Order Comment: No: Do not add to previous draw Performed By: #### 48883 #### [facility] [address] [place] [address], USARBC (Bld) [#/Vol]3.16 10*6/uLLow4.20-5.70The [facility] HospitalComment on above:Order Comment: No: Do not add to previous drawPerformed By: #### 76814 #### [facility] [address] [place] [address], USAWBC (Bld) [#/Vol]3.66 10*3/uLLow4.00-10.60The [facility] HospitalComment on above:Order Comment: No: Do not add to previous drawPerformed By: #### 28205 #### [facility] [address] [place] [address], USAMAGNESIUM BLOODon 27-27-9875Vqxvkhrtg [Mass/Vol]1.8 mg/dL Low1.9-2.7The [facility] HospitalComment on above:Order Comment: No: Do not add to previous drawPerformed By: #### 49441, 15601, 17179 #### [facility] [address] [place] [address], USAPHOSPHORUS BLOODon 58-83-9147Vccqzazvz [Mass/Vol]1.8 mg/dL Low2.5-5.0The [facility] HospitalComment on above:Order Comment: No: Do not add to previous drawPerformed By: #### 68694, 74477, 63065 #### [facility] [address] [place] [address], USAAPTTon 49-63-5187eCLH Coag (Bld) [Time]25.3 sNormal 25.0-35.0The [facility] HospitalComment on above:Order Comment: No: Do not add to previous drawResult Comment: ALL RESULTS MUST BE INTERPRETED WITH RESPECT TO BLOOD DRAWING ARTIFACT OR DILUTION ERROR OF ANTICOAGULANT AT THE TIME OF SAMPLING. THE APTT SHOULD NOT BE USED TO MONITOR UNFRACTIONATED HEPARIN THERAPY, THIS LABORATORY NO LONGER HAS AN ESTABLISHED THERAPEUTIC RANGE BASED ON THE APTT. IT IS RECOMMENDED THAT THE [facility] - HEPARIN ASSAY (ANTI-XA ACTIVITY) BE USED FOR THIS PURPOSE.Performed By: #### 74163, 64302, 93204 #### [facility] [address] [place] [address], USABASIC METABOLIC PANELon 67-49-0761Hyclpux [Mass/Vol]9.0 mg/dLNormal8.6-10.3The [facility] HospitalComment on above:Order Comment: No: Do not add to previous drawPerformed By: #### 79635, 15617, 34522 #### [facility] [address] [place] [address], USAChloride [Moles/Vol]104 mmol/VMajmdl18-891Czq [facility] HospitalComment on above:Order Comment: No: Do not add to previous drawPerformed By: #### 65796, 98192, 21738 #### [facility] [address] [place] [address], USACO2 [Moles/Vol]23 mmol/WQgfyeo98-59Ujo [facility] HospitalComment on above:Order Comment: No: Do not add to previous draw Performed By: #### 48095, 49029, 79163 #### [facility] [address] [place] [address], USACreatinine [Mass/Vol]1.29 mg/dLNormal0.70-1.30The [facility] HospitalComment on above:Order Comment: No: Do not add to previous drawPerformed By: #### 08558, 42254, 54587 #### [facility] [address] [place] [address], USAeGFR- non- Igdufwqu01 ml/min/1.73sq mAbnormal>60The [facility] HospitalComment on above:Order Comment: No: Do not add to previous drawPerformed By: #### 16699, 00646, 28837 #### [facility] [address] [place] [address], USAGFR/1.73 sq M.predicted among blacks MDRD (S/P/Bld) [Vol rate/Area]mL/min/{1.73_m2}Normal>60The [facility] Comment on above:Order Comment: No: Do not add to previous drawPerformed By: #### 25837, 06081, 98826 #### [facility] [address] [place] [address], USAGlucose [Mass/Vol]131 mg/mKQxkg30-433Rvo [facility] HospitalComment on above:Order Comment: No: Do not add to previous drawPerformed By: #### 92365, 37941, 00799 #### [facility] [address] [place] [address], USAPotassium [Moles/Vol]3.1 mmol/LLow3.5-5.1The [facility] HospitalComment on above:Order Comment: No: Do not add to previous drawPerformed By: #### 22346, 39158, 46506 #### [facility] [address] [place] [address], USASodium [Moles/Vol]141 mmol/MJlkzmz941-369Sga [facility] HospitalComment on above:Order Comment: No: Do not add to previous drawPerformed By: #### 10538, 03851, 44815 #### [facility] [address] [place] [address], USAUrea nitrogen [Mass/Vol]40 mg/dLHigh7-25The [facility] [place] Medical CenterComment on above:Order Comment: No: Do not add to previous drawPerformed By: #### 10280, 89322, 68342 #### [facility] [address] [facility] [place] [address], USACBC W/DIFFon 95-78-6626WBJ IMM GRANS0.0 10*3/uLNormal 0.0-0.2The [facility] HospitalComment on above:Performed By: #### 35643, 77792, 35754 #### [facility] [address] [facility] [place] [address], USAABS NEUTROPHILS3.2 10*3/uLNormal1.6-7.6The [facility] HospitalComment on above:Performed By: #### 73322, 05611, 95010 #### [facility] [address] [facility] [place] [address], USABasophils (Bld) [#/Vol]0.0 10*3/uLNormal0.0-0.2The [facility] HospitalComment on above:Performed By: #### 56753, 72392, 49144 #### [facility] [address] [facility] [place] [address], USABasophils/100 WBC (Bld)0.5 %Normal0.0-1.0The [facility] HospitalComment on above:Performed By: #### 13372, 88840, 89101 #### [facility] [address] [facility] [place] [address], USAEosinophils (Bld) [#/Vol]0.0 10*3/uLNormal0.0-0.5The [facility] HospitalComment on above:Performed By: #### 39128, 57870, 59572 #### [facility] [address] [facility] [place] [address], USAEosinophils/100 WBC (Bld)0.0 %Normal0.0-6.0The [facility] HospitalComment on above:Performed By: #### 99727, , 72004 #### [facility] [address] [facility] [place] [address], USAErythrocyte distribution width (RBC) [Ratio]17.3 %High 11.5-15.0The [facility] HospitalComment on above:Performed By: #### 98325, , 36137 #### [facility] [address] [facility] [place] [address], USAHematocrit (Bld) [Volume fraction]37.6 %Low39.0-50.0The [facility] HospitalComment on above:Performed By: #### 03652, , 78855 #### [facility] [address] [facility] [place] [address], USAHemoglobin (Bld) [Mass/Vol]12.7 g/dLLow13.0-17.0The [facility] HospitalComment on above:Performed By: #### 81446, , 50716 #### [facility] [address] [facility] [place] [address], USAIMMATURE GRANS0.2 %Normal0.0-1.0The [facility] HospitalComment on above:Performed By: #### 86631, , 04328 #### [facility] [address] [facility] [place] [address], USALymphocytes (Bld) [#/Vol]0.6 10*3/uLLow1.2-4.0The [facility] HospitalComment on above:Performed By: #### 88954, , 14725 #### [facility] [address] [facility] [place] [address], USALymphocytes/100 WBC (Bld)13.1 %Low20.0-45.0The [facility] HospitalComment on above:Performed By: #### 33798, , 45886 #### [facility] [address] [place] [address], [facility]H (RBC) [Entitic mass]34.0 olJexy40.0-33.0The [facility] HospitalComment on above:Performed By: #### 03372, 39415, 45013 #### [facility] [address] [place] [address], [facility]ALTH CENTERMCHC (RBC) [Mass/Vol]33.8 g/nJQyutok10.0-35.0The [facility] HospitalComment on above:Performed By: #### 67091, 34387, 43713 #### [facility] [address] [facility] [place] [address], [facility]ALTH CENTERMCV (RBC) [Entitic vol]100.5 pJDzga44.0-98.0The [facility] HospitalComment on above:Performed By: #### 48280, , 40229 #### [facility] [address] [facility] [place] [address], USAMonocytes (Bld) [#/Vol]0.5 10*3/uLNormal0.1-1.0The [facility] HospitalComment on above:Performed By: #### 00439, 11349, 98070 #### [facility] [address] [place] [address], TQWOXGBC75.4 %Normal5.0-12.0The [facility] HospitalComment on above:Performed By: #### 17724, 57783, 08716 #### [facility] [address] [facility] [place] [address], USANeutrophils/100 WBC (Bld)74.8 %High40.0-72.0The [facility] HospitalComment on above:Performed By: #### 20526, 78745, 88968 #### [facility] [address] [place] [place] [address], USANucleated RBC/100 WBC (Bld) [Ratio]0 %Normal0-0The [facility] HospitalComment on above:Performed By: #### 99053, 89171, 35081 #### [facility] [address] [place] [address], USAPLAT MST001 10*3/kWGszgar718-082Syb [facility] HospitalComment on above:Performed By: #### 26181, 80020, 65856 #### [facility] [address] [place] [address], USARBC (Bld) [#/Vol]3.74 10*6/uLLow4.20-5.70The [facility] HospitalComment on above:Performed By: #### 41963, 09585, 12212 #### [facility] [address] [place] [address], USAWBC (Bld) [#/Vol]4.28 10*3/uLNormal4.00-10.60The [facility] HospitalComment on above:Performed By: #### 31215, 67824, 12075 #### [facility] [address] [place] [address], USALACTATE WITH REFLEXon 38-55-6068Fhuyhvg [Moles/Vol]1.2 mmol/LNormal.5-2.2The [facility] HospitalComment on above:Order Comment: No: Do not add to previous drawPerformed By: #### 08912 #### [facility] [address] [place] [address], USALIVER BATTERYon 67-29-4309Vojyrzy [Mass/Vol]4.0 g/dLNormal 3.5-5.7The [facility] Avon HospitalComment on above:Order Comment: No: Do not add to previous drawPerformed By: #### 11813, 14427, 95971 #### [facility] [address] [place] [address], USAALKALINE VMNLKG83 IU/UAkbsuc98-091Hrw [facility]on HospitalComment on above:Order Comment: No: Do not add to previous draw Performed By: #### 56368, 74195, 98512 #### [facility] [address] [place] [address], USAALT [Catalytic activity/Vol]15 U/LNormal7-52The [facility]on HospitalComment on above:Order Comment: No: Do not add to previous drawPerformed By: #### 35765, 80118, 07756 #### [facility] [address] [place] [address], USAAST [Catalytic activity/Vol]16 U/WUjoxbr07-57Vai [facility]on HospitalComment on above:Order Comment: No: Do not add to previous drawPerformed By: #### 32903, 27997, 52919 #### [facility] [address] [place] [address], USABilirubin [Mass/Vol]1.6 mg/dLHigh0.3-1.0The [facility] Avon HospitalComment on above:Order Comment: No: Do not add to previous drawPerformed By: #### 19472, 40082, 28445 #### [facility] [address] [place] [address], USABilirubin.direct [Mass/Vol]0.5 mg/dLHigh0.0-0.2The [facility]on HospitalComment on above:Order Comment: No: Do not add to previous drawPerformed By: #### 87465, 95522, 30586 #### [facility] [address] [place] [address], USAProtein [Mass/Vol]7.0 g/dLNormal6.0-8.3The [facility]on HospitalComment on above:Order Comment: No: Do not add to previous drawPerformed By: #### 68975, 07354, 50499 #### [facility] [address] [place] [address], USAMAGNESIUM BLOODon 35-64-1863Gsrwnddyd [Mass/Vol]2.4 mg/dL Normal1.9-2.7The [facility]on HospitalComment on above:Order Comment: No: Do not add to previous drawPerformed By: #### 84718 #### [facility] [address] [place] [address], USAMagnesium [Mass/Vol]1.9 mg/dLNormal1.9-2.7The [facility] Avon HospitalComment on above:Order Comment: No: Do not add to previous drawPerformed By: #### 96860, 47074, 65611 #### [facility] [address] [place] [address], USAPHOSPHORUS BLOODon 35-48-6088Sikhavgwm [Mass/Vol]2.8 mg/dL Normal2.5-5.0The [facility]on HospitalComment on above:Order Comment: No: Do not add to previous drawPerformed By: #### 63631, 62992, 52777 #### [facility] [address] [place] [address], USAPROTHROMBIN TIMEon [id number] Coag (PPP) [Relative time] 1.16 {INR}Normal0.91-1.16The [facility] Avon HospitalComment on above:Order Comment: No: Do not add to previous drawResult Comment: ACCCP RECOMMENDED INR FOR WARFARIN THERAPY ------- CONDITION INR PROPHYLAXIS OF VENOUS THROMBOSIS 2-3 (HIGH-RISK SURGERY) TREATMENT OF VENOUS THROMBOSIS 2-3 TREATMENT OF PULMONARY EMBOLISM 2-3 PREVENTION OF SYSTEMIC EMBOLISM: 2-3 ACUTE MYOCARDIAL INFARCTION TISSUE HEART VALVES VALVULAR HEART DISEASE ATRIAL FIBRILLATION RECURRENT SYSTEMIC EMBOLISM MECHANICAL HEART VALVE 2.5-3.5 FROM: ORAL ANTICOAGULANTS. MECHANISM OF ACTION, CLINICAL EFFECTIVENESS, AND OPTIMAL THERAPEUTIC RANGE. CHEST 1995;108:231S-246S.Performed By: #### 64907, 80515, 77283 #### [facility] [address] [facility] [place] [address], USAPT Coag (PPP) [Time]14.7 wAcwndr97.3-14.8The [facility]on HospitalComment on above:Order Comment: No: Do not add to previous drawResult Comment: ALL RESULTS MUST BE INTERPRETED WITH RESPECT TO BLOOD DRAWING ARTIFACT OR DILUTION ERROR OF ANTICOAGULANT AT THE TIME OF SAMPLING.Performed By: #### 85170, 10696, 15368 #### [facility] [address] [place] [address], [facility] HEALTH CENTERCBC W Auto Differential panel (Bld)on [id number] Immature Gran0.04 k/uL<0.10 k/uLNewland ClinicBasophils (Bld) [#/Vol]10*3/uL <0.11 k/uLNewland ClinicBasophils/100 WBC (Bld)0.2 %[facility] Differential cell count method Nom (Bld)AutoCleveland ClinicEosinophils (Bld) [#/Vol]10*3/uL<0.46 k/uLNewland ClinicEosinophils/100 WBC (Bld)0.2 %[facility] EastErythrocyte distribution width (RBC) [Ratio]18.2 %High11.5 - 15.0 % Newland ClinicHematocrit (Bld) [Volume fraction]40.7 %39.0 - 51.0 %Newland ClinicHemoglobin (Bld) [Mass/Vol]13.5 g/dL13.0 - 17.0 g/dLRegency Hospital [facility] East Immature Gran %0.6 %[facility] EastLymphocytes (Bld) [#/Vol]0.67 10*3/uLLow1.00 - 4.00 k/uLNewland ClinicLymphocytes/100 WBC (Bld)10.9 %[facility] HospitalH (RBC) [Entitic mass]33.8 pg26.0 - 34.0 pgClevelCuyuna Regional Medical CenterHC (RBC) [Mass/Vol] 33.2 g/dL30.5 - 36.0 g/dLUC West Chester HospitalV (RBC) [Entitic vol]102.0 xISbhi01.0 - 100.0 fLClevelscotland memorial hospital ClinicMonocytes (Bld) [#/Vol]0.38 10*3/uL<0.87 k/uLNewland ClinicMonocytes/100 WBC (Bld)6.2 %[facility] EastNeutrophils (Bld) [#/Vol]5.06 10*3/uL1.45 - 7.50 k/uLRegency Hospital Cleveland EastNeutrophils/100 WBC (Bld)81.9 %[facility] EastNucleated RBC (Bld) [#/Vol]10*3/uL<0.01 k/uLRegency Hospital Cleveland EastNucleated RBC/100 WBC (Bld) [Ratio]0.0 /100 WBCRegency Hospital Cleveland EastPlatelet mean volume (Bld) [Entitic vol]8.7 fLLow9.0 - 12.7 fLCselect medical specialty hospital - columbus south ClinicPlatelets (Bld) [#/Vol]268 10*3/uL150 - 400 k/uLNewland ClinicRBC (Bld) [#/Vol]3.99 10*6/uLLow4.20 - 6.00 m/uLRegency Hospital Cleveland EastWBC (Bld) [#/Vol]6.17 10*3/uL3.70 - 11.00 k/uLRegency Hospital Cleveland EastComprehensive metabolic 2000 panelon [id number] [Mass/Vol]5.1 g/dL High3.9 - 4.9 g/dLNewland ClinicALP [Catalytic activity/Vol]104 U/L38 - 113 U/LCleveland ClinicALT [Catalytic activity/Vol]17 U/L10 - 54 U/LCselect medical specialty hospital [facility]and [facility] Anion gap [Moles/Vol]17 mmol/L9 - 18 mmol/LCleveland ClinicAST [Catalytic activity/Vol][facility] EastBilirubin [Mass/Vol]1.3 mg/dL0.2 - 1.3 mg/dL [facility] EastCalcium [Mass/Vol]10.6 mg/dLHigh8.5 - 10.2 mg/dLRegency Hospital [facility] East Chloride [Moles/Vol]99 mmol/L97 - 105 mmol/LCleveland ClinicCO2 [Moles/Vol]20 mmol/LLow22 - 30 mmol/LCleveland ClinicCreatinine [Mass/Vol]1.91 mg/dLHigh0.73 - 1.22 mg/dLRegency Hospital Cleveland EastEstimated Glomerular Filtration Rate40 mL/min/1.73m Low>=60 mL/min/1.73mCleveland ClinicGlucose [Mass/Vol]162 mg/tLEnbg15 - 99 mg/dL [facility] EastPotassium [Moles/Vol]4.5 mmol/L3.7 - 5.1 mmol/LCleveland [facility] Protein [Mass/Vol]8.4 g/dLHigh6.3 - 8.0 g/dLCleveland Clinic Akron General Lodi Hospitalodium [Moles/Vol] 136 mmol/L136 - 144 mmol/LCleveland [facility]icello HospitalUrea nitrogen [Mass/Vol]35 mg/dLHigh9 - 24 mg/dLRegency Hospital Cleveland EastCB W Auto Differential panel (Bld)on [id number] Immature Gran0.08 k/uL<0.10 k/uLRegency Hospital Cleveland EastBasophils (Bld) [#/Vol]10*3/uL <0.11 k/uLRegency Hospital Cleveland EastBasophils/100 WBC (Bld)0.2 %[facility] Differential cell count method Nom (Bld)AutoCleveland ClinicEosinophils (Bld) [#/Vol]0.05 10*3/uL<0.46 k/uLRegency Hospital Cleveland EastEosinophils/100 WBC (Bld)0.6 % [facility] EastErythrocyte distribution width (RBC) [Ratio]16.5 %High11.5 - 15.0 %[facility] EastHematocrit (Bld) [Volume fraction]36.5 %Low39.0 - 51.0 % [facility] EastHemoglobin (Bld) [Mass/Vol]11.9 g/dLLow13.0 - 17.0 g/dLRegency Hospital Cleveland EastImmature Gran %0.9 %[facility] EastLymphocytes (Bld) [#/Vol]1.39 10*3/uL 1.00 - 4.00 k/uLRegency Hospital Cleveland EastLymphocytes/100 WBC (Bld)15.6 %[facility] MCH (RBC) [Entitic mass]32.2 pg26.0 - 34.0 pgClevelMercy Health Willard HospitalMCHC (RBC) [Mass/Vol]32.6 g/dL30.5 - 36.0 g/dLRegency Hospital Cleveland EastMCV (RBC) [Entitic vol]98.6 fL80.0 - 100.0 fLCleveland ClinicMonocytes (Bld) [#/Vol]0.84 10*3/uL<0.87 k/uL [facility] EastMonocytes/100 WBC (Bld)9.4 %[facility] EastNeutrophils (Bld) [#/Vol]6.52 10*3/uL1.45 - 7.50 k/uLRegency Hospital Cleveland EastNeutrophils/100 WBC (Bld)73.3 %[facility] EastNucleated RBC (Bld) [#/Vol]10*3/uL<0.01 k/uLRegency Hospital [facility] Nucleated RBC/100 WBC (Bld) [Ratio]0.0 /100 WBCRegency Hospital Cleveland EastPlatelet mean volume (Bld) [Entitic vol]9.6 fL9.0 - 12.7 fLClevelscotland memorial hospital ClinicPlatelets (Bld) [#/Vol]259 10*3/uL150 - 400 k/uLRegency Hospital Cleveland EastRBC (Bld) [#/Vol]3.70 10*6/uLLow 4.20 - 6.00 m/uLRegency Hospital Cleveland EastWBC (Bld) [#/Vol]8.90 10*3/uL3.70 - 11.00 k/uL [facility] EastComprehensive metabolic 2000 panelon [id number] [Mass/Vol]4.5 g/dL3.9 - 4.9 g/dLNewland ClinicALP [Catalytic activity/Vol]84 U/L38 - 113 U/LCleveland ClinicALT [Catalytic activity/Vol]16 U/L10 - 54 U/L [facility] EastAnion gap [Moles/Vol]15 mmol/L9 - 18 mmol/LCleveland ClinicAST [Catalytic activity/Vol][facility] EastBilirubin [Mass/Vol]0.6 mg/dL0.2 - 1.3 mg/dLRegency Hospital Cleveland EastCalcium [Mass/Vol]9.6 mg/dL8.5 - 10.2 mg/dLRegency Hospital [facility] Chloride [Moles/Vol]106 mmol/LHigh97 - 105 mmol/LCleveland ClinicCO2 [Moles/Vol] 19 mmol/LLow22 - 30 mmol/LCleveland [facility] HospitalCreatinine [Mass/Vol]1.01 mg/dL0.73 - 1.22 mg/dLRegency Hospital Cleveland EastEstimated Glomerular Filtration Rate85 mL/min/1.73m >=60 mL/min/1.73mCleveland [facility]icello HospitalGlucose [Mass/Vol]95 mg/dL74 - 99 mg/dL [facility] EastPotassium [Moles/Vol]4.7 mmol/L3.7 - 5.1 mmol/LCleveland [facility] Protein [Mass/Vol]7.2 g/dL6.3 - 8.0 g/dLCleveland Clinic Akron General Lodi Hospitalodium [Moles/Vol]140 mmol/L136 - 144 mmol/LCleveland [facility]ello HospitalUrea nitrogen [Mass/Vol]17 mg/dL9 - 24 mg/dLRegency Hospital Cleveland EastCT CHEST W IVCONon [id number] CHEST W IVCON* * *Final Report* * * DATE OF EXAM: Jun 20 2021 3:43PM [facility] 0539 - CT CHEST W IVCON [...] seen and may be atrophied or absent. Community Development Director (topogram) images: No additional findings. IMPRESSION: 1. [...] centrilobular emphysema with an upper lobe predominance. Vp Customer Service: EDGAR Transcribe Date/Time: Jun 21 2021 5:58A Dictated by : DARIEN PARIKH MD This examination was interpreted and the report reviewed and electronically signed by: DARIEN PARIKH MD on Jun 21 2021 6:26AM EST [id number] Healthcare NECK SOFT TISSUE W IVCONon [id number] NECK SOFT TISSUE W IVCON* * *Final Report* * * DATE OF EXAM: Jun 20 2021 3:43PM [facility] 0013 - CT NECK SOFT TISSUE [...] was performed concurrently and is dictated separately. Community Development Director (topogram) images: No significant findings. 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 Residual pathologic right level II lymphadenopathy, suspect increased in size since PET/CT of 04/05/2021. No discrete new pathologic lymph nodes. Chronically occluded left ICA. Vp Customer Service: EDGAR Transcribe Date/Time: Jun 20 2021 4:24P Dictated by : CASSIE WONG MD This examination was interpreted and the report reviewed and electronically signed by: CASSIE WONG MD on Jun 20 2021 4:45PM EST [id number] HospitalHISTORY PHYSICALon [id number] PHYSICALHNO ID: [id number] Author: Ana Hernandez APRN.[employer]ICE MERCHANDISER Service: ? Author Type: Nurse Practitioner Type: [...] inflammatory bowel disease, liver (more content not included)...NormalMedina HospitalHISTORY PHYSICALHNO ID: [id number] Author: Ana Hernandez APRN.SILVINO Service: ? Author [...] fevers. Neurological: No history of TIA's, stroke, HEALTH INFORMATION MANAGER tumor, impaired sensorium, hemiplegia, paraplegia or quadraplegia. No neurological symptoms or problems. Respiratory: No history of current cough or dyspnea, or pneumonia in the past 6 weeks. No history of respiratory/pulmonary symptoms or problems. Cardiovascular: No history of HTN requiring medication, no history of angina, CHF, WI, cardiac surgery or stents. Denies rest pain, [...] (PROAIR HFA) 90 mc (more content not included)...NormalCleveland Clinic [facility] METABOLIC PANELon 57-29-6136Xrkumzs [Mass/Vol]8.6 mg/dLNormal 8.6-10.3The [facility] HospitalComment on above:Order Comment: No: Do not add to previous drawPerformed By: #### 40595, 72346, 49660 #### [facility] [address] [place] [address], USAChloride [Moles/Vol]109 mmol/OBjet45-229Asq [facility] HospitalComment on above:Order Comment: No: Do not add to previous drawPerformed By: #### 26232, 78099, 08248 #### [facility] [address] [place] [address], USACO2 [Moles/Vol]23 mmol/LHghnsb00-28Vrf [facility] HospitalComment on above:Order Comment: No: Do not add to previous draw Performed By: #### 81121, 40381, 81941 #### [facility] [address] [place] [address], USACreatinine [Mass/Vol]0.82 mg/dLNormal0.70-1.30The [facility] HospitalComment on above:Order Comment: No: Do not add to previous drawPerformed By: #### 26493, 63650, 06883 #### [facility] [address] [place] [address], USAGFR/1.73 sq M.predicted among blacks MDRD (S/P/Bld) [Vol rate/Area]mL/min/{1.73_m2}Normal>60The [facility] Comment on above:Order Comment: No: Do not add to previous drawPerformed By: #### 45774, 90763, 48399 #### [facility] [address] [place] [address], USAGFR/1.73 sq M.predicted among non-blacks MDRD (S/P/Bld) [Vol rate/Area]mL/min/{1.73_m2}Normal>60The [facility] Comment on above:Order Comment: No: Do not add to previous drawPerformed By: #### 20340, 71728, 96295 #### [facility] [address] [place] [address], USAGlucose [Mass/Vol]117 mg/rMWxrn16-847Aku [facility] HospitalComment on above:Order Comment: No: Do not add to previous drawPerformed By: #### 50131, 81316, 51243 #### [facility] [address] [place] [address], USAPotassium [Moles/Vol]3.4 mmol/LLow3.5-5.1The [facility] HospitalComment on above:Order Comment: No: Do not add to previous drawPerformed By: #### 31787, 52882, 51190 #### [facility] [address] [place] [address], USASodium [Moles/Vol]139 mmol/QSchmbz166-853Zlu [facility] HospitalComment on above:Order Comment: No: Do not add to previous drawPerformed By: #### 70242, 65713, 14721 #### [facility] [address] [place] [address], USAUrea nitrogen [Mass/Vol]12 mg/dLNormal7-25The [facility] HospitalComment on above:Order Comment: No: Do not add to previous drawPerformed By: #### 57636, 10157, 60332 #### [facility] [address] [place] [address], [facility] HEALTH CENTERCBC COMPLETE BLOOD COUNTon 36-46-1958Oealrwguzww distribution width (RBC) [Ratio]12.9 %Futohx42.5-15.0The [facility] HospitalComment on above:Order Comment: No: Do not add to previous draw Performed By: #### 85233, 87563, 02101 #### [facility] [address] [place] [address], USAHematocrit (Bld) [Volume fraction]34.7 %Low39.0-50.0The [facility] HospitalComment on above:Order Comment: No: Do not add to previous drawPerformed By: #### 35528, 55782, 18896 #### [facility] [address] [place] [address], USAHemoglobin (Bld) [Mass/Vol]11.3 g/dLLow13.0-17.0The [facility] HospitalComment on above:Order Comment: No: Do not add to previous drawPerformed By: #### 70963, 54630, 86971 #### [facility] [address] [place] [address], [facility] CITYH (RBC) [Entitic mass]32.7 lzKuapmc45.0-33.0The [facility] HospitalComment on above:Order Comment: No: Do not add to previous drawPerformed By: #### 25028, 38941, 88507 #### [facility] [address] [place] [address], USAMCHC (RBC) [Mass/Vol]32.6 g/kNJrlwjp56.0-35.0The [facility] HospitalComment on above:Order Comment: No: Do not add to previous drawPerformed By: #### 61591, 29888, 09591 #### [facility] [address] [place] [address], USAMCV (RBC) [Entitic vol]100.3 pRAkrd55.0-98.0The [facility] HospitalComment on above:Order Comment: No: Do not add to previous drawPerformed By: #### 97597, 07165, 80853 #### [facility] [address] [place] [address], USANucleated RBC/100 WBC (Bld) [Ratio]0 %Normal0-0The [facility] HospitalComment on above:Order Comment: No: Do not add to previous drawPerformed By: #### 75268, 40674, 42606 #### [facility] [address] [place] [address], USAPLAT YOZ401 10*3/aLSkligh480-204Lvh [facility] HospitalComment on above:Order Comment: No: Do not add to previous draw Performed By: #### 18050, 11125, 20867 #### [facility] [address] [place] [address], USARBC (Bld) [#/Vol]3.46 10*6/uLLow4.20-5.70The [facility] HospitalComment on above:Order Comment: No: Do not add to previous drawPerformed By: #### 17510, 97176, 46981 #### [facility] [address] [place] [address], USAWBC (Bld) [#/Vol]7.24 10*3/uLNormal4.00-10.60The [facility] HospitalComment on above:Order Comment: No: Do not add to previous drawPerformed By: #### 26667, 97987, 45420 #### [facility] [address] [place] [address], USAMAGNESIUM BLOODon 47-07-8619Vokhpwayp [Mass/Vol]1.7 mg/dL Low1.9-2.7The [facility] HospitalComment on above:Order Comment: No: Do not add to previous drawPerformed By: #### 19300, 06837, 52192 #### [facility] [address] [place] [address], USAPHOSPHORUS BLOODon 82-10-1362Sfqinwygw [Mass/Vol]1.7 mg/dL Low2.5-5.0The [facility] HospitalComment on above:Order Comment: No: Do not add to previous drawPerformed By: #### 20034, 14429, 89424 #### [facility] [address] [place] [address], USABASIC METABOLIC PANELon 94-18-1015Qgpsokl [Mass/Vol]8.7 mg/dLNormal8.6-10.3The [facility] HospitalComment on above:Order Comment: No: Do not add to previous drawPerformed By: #### 24641, 68894 #### [facility] [address] [place] [address], USAChloride [Moles/Vol]105 mmol/KRggaqb56-715Axg [facility] HospitalComment on above:Order Comment: No: Do not add to previous drawPerformed By: #### 52144, 50844 #### [facility] [address] [place] [address], USACO2 [Moles/Vol]19 mmol/VXor86-76Oik [facility] HospitalComment on above:Order Comment: No: Do not add to previous draw Performed By: #### 90546, 14533 #### [facility] [address] [place] [address], USACreatinine [Mass/Vol]0.91 mg/dLNormal0.70-1.30The [facility] HospitalComment on above:Order Comment: No: Do not add to previous drawPerformed By: #### 70266, 04669 #### [facility] [address] [place] [address], USAGFR/1.73 sq M.predicted among blacks MDRD (S/P/Bld) [Vol rate/Area]mL/min/{1.73_m2}Normal>60The [facility] Comment on above:Order Comment: No: Do not add to previous drawPerformed By: #### 33695, 53908 #### [facility] [address] [place] [address], USAGFR/1.73 sq M.predicted among non-blacks MDRD (S/P/Bld) [Vol rate/Area]mL/min/{1.73_m2}Normal>60The [facility] Comment on above:Order Comment: No: Do not add to previous drawPerformed By: #### 36252, 68028 #### [facility] [address] [place] [address], USAGlucose [Mass/Vol]63 mg/kNTkj42-058Szy [facility] HospitalComment on above:Order Comment: No: Do not add to previous draw Performed By: #### 46731, 88875 #### [facility] [address] [place] [address], USAPotassium [Moles/Vol]3.8 mmol/LNormal3.5-5.1The [facility] HospitalComment on above:Order Comment: No: Do not add to previous drawPerformed By: #### 53674, 78370 #### [facility] [address] [place] [address], USASodium [Moles/Vol]139 mmol/FAtjggd702-658Dyy [facility] HospitalComment on above:Order Comment: No: Do not add to previous drawPerformed By: #### 58896, 89386 #### [facility] [address] [place] [address], USAUrea nitrogen [Mass/Vol]24 mg/dLNormal7-25The [facility] HospitalComment on above:Order Comment: No: Do not add to previous drawPerformed By: #### 43157, 69002 #### [facility] [address] [place] [address], USACBC COMPLETE BLOOD COUNTon 49-71-7120Prjaihvrklg distribution width (RBC) [Ratio]13.0 %Wdngjv22.5-15.0The [facility] HospitalComment on above:Order Comment: No: Do not add to previous draw Performed By: #### 66670, 50134, 49103 #### [facility] [address] [place] [address], USAHematocrit (Bld) [Volume fraction]35.3 %Low39.0-50.0The [facility] HospitalComment on above:Order Comment: No: Do not add to previous drawPerformed By: #### 79706, 30789, 00730 #### [facility] [address] [place] [address], USAHemoglobin (Bld) [Mass/Vol]11.5 g/dLLow13.0-17.0The [facility] HospitalComment on above:Order Comment: No: Do not add to previous drawPerformed By: #### 90706, 77385, 69780 #### [facility] [address] [place] [address], [facility] (RBC) [Entitic mass]32.8 adJscxka33.0-33.0The [facility] HospitalComment on above:Order Comment: No: Do not add to previous drawPerformed By: #### 27514, 47688, 74677 #### [facility] [address] [address], [facility] HEALTH CENTERMCHC (RBC) [Mass/Vol]32.6 g/mJJfiicv10.0-35.0The [facility]on HospitalComment on above:Order Comment: No: Do not add to previous drawPerformed By: #### 24891, 77174, 96874 #### [facility] [facility] [address] [place] [address], USAMCV (RBC) [Entitic vol]100.6 uISnfe33.0-98.0The [facility] HospitalComment on above:Order Comment: No: Do not add to previous drawPerformed By: #### 41732, 94751, 85070 #### [facility] [address] [place] [address], USANucleated RBC/100 WBC (Bld) [Ratio]0 %Normal0-0The [facility] HospitalComment on above:Order Comment: No: Do not add to previous drawPerformed By: #### 82699, 98277, 01218 #### [facility] [address] [place] [address], USAPLAT OLK476 10*3/pVUgudxs196-358Tet [facility] HospitalComment on above:Order Comment: No: Do not add to previous draw Performed By: #### 93978, 47827, 75098 #### [facility] [address] [place] [address], USARBC (Bld) [#/Vol]3.51 10*6/uLLow4.20-5.70The [facility]on HospitalComment on above:Order Comment: No: Do not add to previous drawPerformed By: #### 49363, 92634, 50574 #### [facility] [address] [place] [address], USAWBC (Bld) [#/Vol]7.96 10*3/uLNormal4.00-10.60The [facility] HospitalComment on above:Order Comment: No: Do not add to previous drawPerformed By: #### 19394, 69129, 04293 #### [facility] [address] [place] [address], USAMAGNESIUM BLOODon 89-53-1696Ekcljoedi [Mass/Vol]1.8 mg/dL Low1.9-2.7The [facility]on HospitalComment on above:Order Comment: No: Do not add to previous drawPerformed By: #### 34820, 29460 #### [facility] [address] [place] [address], USAPOC GLUCOSE LABon 34-84-4010Jgmvzng [Mass/Vol]167 mg/dLHigh 70-100The [facility] HospitalComment on above:Performed By: #### 17110, 33526, 09433 #### [facility] [address] [place] [address], USAABDOMEN 1 VWon 44-51-4559MZGROMB 1 VWUnFort [facility] Department of Radiology [address] [place] [address] [id number] Patient Name: ALEJO FLOYD : 1960 Sex: M Age: Race: Black Pt. Location: [facility] Patient Status: I Ordered Date: 05/28/2021 6:00:00 AM Completed Date: 05/28/2021 10:24 AM Requesting Provider: JOAQUIN SALINAS Attending Provider: RADHA WEINER Report Copy To: Signs & Symptoms: Abdomen Pain Generalized History: Comments: Obstruction Exam: ABDOMEN 1 VW ABDOMEN 1 VW 05/28/2021 10:24 AM CLINICAL [...] obstruction. Electronically signed: Kenzie Chi. Transcribed by: [email or web address], User Resident: Electronically Signed by: KENZIE CHI @ 05/28/2021 11:00 AMNormalThe [facility] Avon HospitalComment on above:Order Comment: No: Do not add to previous drawBASIC METABOLIC PANELon 32-19-2218Zpkktsf [Mass/Vol]9.0 mg/dLNormal8.6-10.3The [facility] HospitalComment on above:Order Comment: No: Do not add to previous drawPerformed By: #### 86293, 44156, 20157 #### [facility] [address] [place] [address], USAChloride [Moles/Vol]103 mmol/EThukeo12-236Vqk [facility] HospitalComment on above:Order Comment: No: Do not add to previous drawPerformed By: #### 53232, 88317, 92508 #### [facility] [address] [place] [address], USACO2 [Moles/Vol]19 mmol/AKsi08-76Pfv [facility] HospitalComment on above:Order Comment: No: Do not add to previous draw Performed By: #### 70094, 08905, 50341 #### [facility] [address] [place] [address], USACreatinine [Mass/Vol]1.38 mg/dLHigh0.70-1.30The [facility] HospitalComment on above:Order Comment: No: Do not add to previous drawPerformed By: #### 64811, 11551, 77235 #### [facility] [address] [place] [address], USAeGFR- non- Urwuxbid49 ml/min/1.73sq mAbnormal>60The [facility] HospitalComment on above:Order Comment: No: Do not add to previous drawPerformed By: #### 79972, 61242, 51793 #### [facility] [address] [place] [address], USAGFR/1.73 sq M.predicted among blacks MDRD (S/P/Bld) [Vol rate/Area]mL/min/{1.73_m2}Normal>60The [facility] Comment on above:Order Comment: No: Do not add to previous drawPerformed By: #### 73656, 80459, 48528 #### [facility] [address] [place] [address], USAGlucose [Mass/Vol]79 mg/zGHpvzyt23-258Yfd [facility] HospitalComment on above:Order Comment: No: Do not add to previous drawPerformed By: #### 57385, 96227, 02436 #### [facility] [address] [place] [address], USAPotassium [Moles/Vol]3.9 mmol/LNormal3.5-5.1The [facility] HospitalComment on above:Order Comment: No: Do not add to previous drawPerformed By: #### 37195, 67633, 38400 #### [facility] [address] [place] [address], USASodium [Moles/Vol]138 mmol/OQbprtp955-070Wbc [facility] HospitalComment on above:Order Comment: No: Do not add to previous drawPerformed By: #### 77760, 12245, 17283 #### [facility] [address] [place] [address], USAUrea nitrogen [Mass/Vol]38 mg/dLHigh7-25The [facility] HospitalComment on above:Order Comment: No: Do not add to previous drawPerformed By: #### 71434, 28120, 52769 #### [facility] [address] [place] [address], USACBC W/DIFFon 44-28-8179EJY NEUTROPHILS5.9 10*3/uLNormal 1.6-7.6The [facility] HospitalComment on above:Order Comment: No: Do not add to previous drawPerformed By: #### 30622, 12001, 69546 #### [facility] [address] [address], USAANISOModerateNormalThe [facility] Comment on above:Order Comment: No: Do not add to previous drawPerformed By: #### 76651, 03851, 51840 #### [facility] [address] [place] [address], USABasophils (Bld) [#/Vol]0.0 10*3/uLNormal0.0-0.2The [facility] HospitalComment on above:Order Comment: No: Do not add to previous drawPerformed By: #### 92088, 58617, 69200 #### [facility] [address] [place] [address], USABasophils/100 WBC (Bld)0.0 %Normal0.0-1.0The [facility] HospitalComment on above:Order Comment: No: Do not add to previous drawPerformed By: #### 69986, 86868, 43300 #### [facility] [address] [place] [address], USAEosinophils (Bld) [#/Vol]0.0 10*3/uLNormal0.0-0.5The [facility] HospitalComment on above:Order Comment: No: Do not add to previous drawPerformed By: #### 56200, 03112, 33048 #### [facility] [address] [place] [address], USAEosinophils/100 WBC (Bld)0.0 %Normal0.0-6.0The [facility] HospitalComment on above:Order Comment: No: Do not add to previous drawPerformed By: #### 71414, 39748, 00373 #### [facility] [address] [place] [address], USAErythrocyte distribution width (RBC) [Ratio]13.0 %Normal 11.5-15.0The [facility] HospitalComment on above:Order Comment: No: Do not add to previous drawPerformed By: #### 54644, 63469, 75235 #### [facility] [address] [facility] [place] [address], USAGIANT PLATELETSPresentNoalThe [facility]on HospitalComment on above:Order Comment: No: Do not add to previous draw Performed By: #### 46989, 10103, 10021 #### [facility] [address] [facility] [place] [address], USAHematocrit (Bld) [Volume fraction]40.4 %Scltzs66.0-50.0The [facility] HospitalComment on above:Order Comment: No: Do not add to previous drawPerformed By: #### 66866, 99084, 35472 #### [facility] [address] [facility] [place] [address], USAHemoglobin (Bld) [Mass/Vol]12.7 g/dLLow13.0-17.0The [facility] HospitalComment on above:Order Comment: No: Do not add to previous drawPerformed By: #### 01966, 08883, 81022 #### [facility] [address] [facility] [place] [address], USALymphocytes (Bld) [#/Vol]1.7 10*3/uLNormal1.2-4.0The [facility] HospitalComment on above:Order Comment: No: Do not add to previous drawPerformed By: #### 04244, 82690, 00273 #### [facility] [address] [place] [address], USALymphocytes/100 WBC (Bld)18.4 %Low20.0-45.0The [facility] HospitalComment on above:Order Comment: No: Do not add to previous drawPerformed By: #### 97983, 96462, 90286 #### [facility] [address] [place] [address], USAMACROModerateNormalThe [facility] Comment on above:Order Comment: No: Do not add to previous drawPerformed By: #### 81705, 07116, 83999 #### [facility] [address] [place] [address], [facility] (RBC) [Entitic mass]32.6 dcMrbrae38.0-33.0The [facility] HospitalComment on above:Order Comment: No: Do not add to previous drawPerformed By: #### 11906, 34498, 24356 #### [facility] [address] [place] [address], [facility] HEALTH CENTERMCHC (RBC) [Mass/Vol]31.4 g/dLLow32.0-35.0The [facility] HospitalComment on above:Order Comment: No: Do not add to previous drawPerformed By: #### 90550, 72335, 26513 #### [facility] [address] [place] [address], [facility] HEALTH CENTERMCV (RBC) [Entitic vol]103.9 kNZsrp01.0-98.0The [facility] HospitalComment on above:Order Comment: No: Do not add to previous drawPerformed By: #### 64591, 21567, 16766 #### [facility] [address] [place] [address], USAMonocytes (Bld) [#/Vol]1.5 10*3/uLHigh0.1-1.0The [facility] HospitalComment on above:Order Comment: No: Do not add to previous drawPerformed By: #### 71973, 10100, 00883 #### [facility] [address] [place] [address], ZGUIXBBB04.5 %High5.0-12.0The [facility] HospitalComment on above:Order Comment: No: Do not add to previous drawPerformed By: #### 41533, 24041, 16133 #### [facility] [address] [place] [address], USAMYELOS1.8 %High0.0-0.0The [facility] HospitalComment on above:Order Comment: No: Do not add to previous drawPerformed By: #### 55450, 24622, 42670 #### [facility] [address] [place] [address], USANeutrophils/100 WBC (Bld)63.3 %Wnjpwl35.0-72.0The [facility] HospitalComment on above:Order Comment: No: Do not add to previous drawPerformed By: #### 32779, 80904, 37852 #### [facility] [address] [place] [address], USANucleated RBC/100 WBC (Bld) [Ratio]0 %Normal0-0The [facility] HospitalComment on above:Order Comment: No: Do not add to previous drawPerformed By: #### 77381, 12549, 10814 #### [facility] [address] [place] [address], USAPLAT LFI383 10*3/rYMzmtcr598-833Vjl [facility] HospitalComment on above:Order Comment: No: Do not add to previous draw Performed By: #### 59359, 78586, 24256 #### [facility] [address] [place] [address], USARBC (Bld) [#/Vol]3.89 10*6/uLLow4.20-5.70The [facility] HospitalComment on above:Order Comment: No: Do not add to previous drawPerformed By: #### 86409, 31441, 74327 #### [facility] [address] [facility] [place] [address], USAWBC (Bld) [#/Vol]9.26 10*3/uLNormal4.00-10.60The [facility] HospitalComment on above:Order Comment: No: Do not add to previous drawPerformed By: #### 24972, 27726, 31434 #### [facility] [address] [facility] [place] [address], USAABS IMM GRANS0.1 10*3/uLNormal0.0-0.2The [facility] HospitalComment on above:Performed By: #### 64743, 08053, 71994 #### [facility] [address] [facility] [place] [address], USAABS NEUTROPHILS5.5 10*3/uLNormal1.6-7.6The [facility] HospitalComment on above:Performed By: #### 34383, 31431, 07593 #### [facility] [address] [facility] [place] [address], USABasophils (Bld) [#/Vol]0.0 10*3/uLNormal0.0-0.2The [facility] HospitalComment on above:Performed By: #### 64793, 86212, 32103 #### [facility] [address] [facility] [place] [address], USABasophils/100 WBC (Bld)0.3 %Normal0.0-1.0The [facility] HospitalComment on above:Performed By: #### 19072, 26534, 24891 #### [facility] [address] [facility] [place] [address], USAEosinophils (Bld) [#/Vol]0.0 10*3/uLNormal0.0-0.5The [facility] HospitalComment on above:Performed By: #### 51723, 87800, 43577 #### [facility] [address] [facility] [place] [address], USAEosinophils/100 WBC (Bld)0.5 %Normal0.0-6.0The [facility] HospitalComment on above:Performed By: #### 49643, , 92992 #### [facility] [address] [place] [address], USAErythrocyte distribution width (RBC) [Ratio]12.8 %Normal 11.5-15.0The [facility] HospitalComment on above:Performed By: #### 74981, , 11200 #### [facility] [address] [place] [address], USAHematocrit (Bld) [Volume fraction]39.5 %Kvkasn03.0-50.0The [facility] HospitalComment on above:Performed By: #### 03482, , 82796 #### [facility] [address] [place] [address], USAHemoglobin (Bld) [Mass/Vol]12.5 g/dLLow13.0-17.0The [facility] HospitalComment on above:Performed By: #### 91069, , 94375 #### [facility] [address] [place] [address], USAIMMATURE GRANS0.6 %Normal0.0-1.0The [facility] HospitalComment on above:Performed By: #### 16340, , 94255 #### [facility] [address] [place] [address], USALymphocytes (Bld) [#/Vol]1.3 10*3/uLNormal1.2-4.0The [facility] HospitalComment on above:Performed By: #### 54590, 95912, 86730 #### [facility] [address] [place] [address], [facility] HEALTH CENTERLymphocytes/100 WBC (Bld)15.4 %Low20.0-45.0The [facility] HospitalComment on above:Performed By: #### 47663, , 85924 #### [facility] [address] [place] [address], [facility] (RBC) [Entitic mass]32.9 gxNvznex54.0-33.0The [facility] HospitalComment on above:Performed By: #### 34470, , 69269 #### [facility] [address] [place] [place] [address], [facility] CITYHC (RBC) [Mass/Vol]31.6 g/dLLow32.0-35.0The [facility] HospitalComment on above:Performed By: #### 38635, , 67544 #### [facility] [address] [facility] [place] [address], [facility] HEALTH CENTERMCV (RBC) [Entitic vol]103.9 tDQdmg71.0-98.0The [facility] HospitalComment on above:Performed By: #### 34706, 86950, 98707 #### [facility] [address] [place] [place] [address], USAMonocytes (Bld) [#/Vol]1.7 10*3/uLHigh0.1-1.0The [facility] HospitalComment on above:Performed By: #### 11462, 30145, 97844 #### [facility] [address] [facility] [place] [address], MMJHKVLC84.8 %High5.0-12.0The [facility] HospitalComment on above:Performed By: #### 73872, , 10283 #### [facility] [address] [facility] [place] [address], USANeutrophils/100 WBC (Bld)63.4 %Cpbwsq93.0-72.0The [facility] HospitalComment on above:Performed By: #### 13136, 80822, 63052 #### [facility] [address] [place] [address], USANucleated RBC/100 WBC (Bld) [Ratio]0 %Normal0-0The [facility] HospitalComment on above:Performed By: #### 63985, 90240, 89621 #### [facility] [address] [facility] [place] [address], USAPLAT ZHE957 10*3/kXQdvgsv977-805Fzg [facility] HospitalComment on above:Performed By: #### 90485, 07301, 01573 #### [facility] [address] [facility] [place] [address], [facility] HEALTH CENTERRBC (Bld) [#/Vol]3.80 10*6/uLLow4.20-5.70The [facility] HospitalComment on above:Performed By: #### 33601, 05366, 20787 #### [facility] [address] [facility] [place] [address], [facility] HEALTH CENTERWBC (Bld) [#/Vol]8.68 10*3/uLNormal4.00-10.60The [facility] HospitalComment on above:Performed By: #### 70377, 77929, 50931 #### [facility] [address] [facility] [place] [address], USACOMP METABOLIC PANELon 71-95-3775Ojcnpdk [Mass/Vol]4.1 g/dL Normal3.5-5.7The [facility] HospitalComment on above:Performed By: #### 48638 #### [facility] [address] [facility] [place] [address], [facility] HEALTH CENTERALKALINE AVHHUY86 IU/MZpnejw88-311Oqs [facility] HospitalComment on above:Performed By: #### 70035 #### [facility] [address] [place] [address], USAALT [Catalytic activity/Vol]14 U/LNormal7-52The [facility] HospitalComment on above:Performed By: #### 14583 #### [facility] [address] [place] [address], USAAST [Catalytic activity/Vol]15 U/AAhxkvl81-25Rwc [facility] HospitalComment on above:Performed By: #### 68919 #### [facility] [address] [place] [address], USABilirubin [Mass/Vol]1.0 mg/dLNormal0.3-1.0The [facility] HospitalComment on above:Performed By: #### 91877 #### [facility] [address] [place] [address], USACalcium [Mass/Vol]9.1 mg/dLNormal8.6-10.3The [facility] HospitalComment on above:Performed By: #### 92856 #### [facility] [address] [place] [address], USAChloride [Moles/Vol]102 mmol/PSqcrtm38-982Jco [facility] HospitalComment on above:Performed By: #### 98470 #### [facility] [address] [place] [address], USACO2 [Moles/Vol]22 mmol/AKqzzjm57-44Npm [facility] HospitalComment on above:Performed By: #### 37004 #### [facility] [address] [place] [address], USACreatinine [Mass/Vol]1.51 mg/dLHigh0.70-1.30The [facility] HospitalComment on above:Performed By: #### 21708 #### [facility] [address] [place] [address], USAeGFR- Vyffqduw52 ml/min/1.73sq mAbnormal>60The [facility] HospitalComment on above:Performed By: #### 56495 #### [facility] [address] [place] [address], USAeGFR- non- Opcrluln77 ml/min/1.73sq mAbnormal>60The [facility] HospitalComment on above:Performed By: #### 95589 #### [facility] [address] [place] [address], USAGlucose [Mass/Vol]84 mg/uEBgytbn57-020Xcp [facility] HospitalComment on above:Performed By: #### 02007 #### [facility] [address] [place] [address], USAPotassium [Moles/Vol]3.9 mmol/LNormal3.5-5.1The [facility] HospitalComment on above:Performed By: #### 47699 #### [facility] [address] [place] [address], USAProtein [Mass/Vol]7.2 g/dLNormal6.0-8.3The [facility] HospitalComment on above:Performed By: #### 14710 #### [facility] [address] [place] [address], USASodium [Moles/Vol]139 mmol/XZdnfmm728-276Fly [facility] HospitalComment on above:Performed By: #### 47244 #### [facility] [address] [place] [address], USAUrea nitrogen [Mass/Vol]40 mg/dLHigh7-25The [facility] HospitalComment on above:Performed By: #### 70586 #### [facility] [address] [place] [address], USALACTATE WITH REFLEXon 36-93-2487Bcsafoy [Moles/Vol]0.6 mmol/LNormal.5-2.2The [facility] HospitalComment on above: Performed By: #### 60718 #### [facility] [address] [place] [address], USAMAGNESIUM BLOODon 94-05-6921Nazwljhqq [Mass/Vol]2.0 mg/dL Normal1.9-2.7The [facility] HospitalComment on above:Order Comment: No: Do not add to previous drawPerformed By: #### 83407, 88296, 22518 #### [facility] [address] [facility] [place] [address], USAPHOSPHORUS BLOODon 36-01-2016Bovmtpiws [Mass/Vol]3.2 mg/dL Normal2.5-5.0The [facility] HospitalComment on above:Order Comment: No: Do not add to previous drawPerformed By: #### 95100, 07588, 66226 #### [facility] [address] [facility] [place] [address], USAPOC SARS COV2 ANTIGEN NEGATIVEon 22-72-2758HDK SARS COV2 ANTIGEN NEGNegativeNormalNEGATIVEThe [facility] HospitalComment on above:Result Comment: Negative results should be treated as presumptive and [...] antigen from SARS-CoV-2 in direct nasopharyngeal swab (PRELOAD SUPERVISOR) specimens from individuals who are suspected of [...] Waiver, Certificate of Compliance, or Certificate of Accreditation.Performed By: #### 41353, 61193, 38923 #### [facility] [address] [place] [address], [facility] HEALTH CENTERGLUCOSE, BLOOD (POC)on [id number] [Mass/Vol]102 mg/aSRgbivxuz56 - 99 mg/dLRegency Hospital Cleveland EastComment on above:Location:[facility], [address] [place] [address] , [place], [place], [address] The Accu-Chek Inform II glucose meter has [...] above situations. Interpretation and review of laboratory resultsAbnormalCRegency Hospital CompanyPET+CT Guidance for localization of tumor of Skull base to mid-thigh-- W 18F-FDG Joanna [id number]: 1. HEAD/NECK: New left oral pharyngeal FDG [...] any questions regarding this interpretation, please call [phone]. If you are unable to reach us at the number above, please feel free to contact [facility] at [phone].DIVISION OF RADIOLOGY* * *Final Report* * * DATE OF EXAM: Apr 05 2021 11:05AM NRN 0063 - NM PET/CT SKULL-THIGH SUBQ / PROCEDURE REASON: Malignant neoplasm of head, face and neck (HCC) * * * * Physician Interpretation * * * * RESULT: EXAMINATION: SKULL EEICLC-AJ-XMZXEY FDG PET/CT SCAN HISTORY: 60 years old [...] Max SUV 1.6 Liver: Max SUV 3.7 Community Development Director (topogram) images: No additional findings. HEAD AND [...] of the L1 vertebral body. DIVISION OF RADIOLOGYProvider, [facility] [place] - 04/05/2021 * * *Final Report* * * DATE OF EXAM: Apr 05 2021 11:05AM NRN 0063 - NM PET/CT SKULL-THIGH SUBQ / PROCEDURE REASON: Malignant neoplasm of head, face and neck (HCC) * * * * Physician Interpretation * * * * RESULT: EXAMINATION: SKULL QZRLYA-RZ-IBYKIC FDG PET/CT SCAN HISTORY: 60 years old [...] Max SUV 1.6 Liver: Max SUV 3.7 Community Development Director (topogram) images: No additional findings. HEAD AND [...] Date/Time: Apr 05 2021 11:41A Dictated by: LIEDY PEREZ MD This examination was interpreted and the report reviewed and electronically signed by: DORA GANDHI MD on Apr 05 2021 12:29PM EST Thank you for allowing us to participate in the care of your patient. Should there be any questions regarding this interpretation, please call [phone]. If you are unable to reach us at the number above, please feel free to contact [facility] at [phone]. [facility] East[facility] Study observation (narrative)[facility] EastPET+CT Guidance for localization of tumor of Skull base to mid-thigh-- W 18F-FDG IV Ordered By: [facility] Provider on [id number] ClinicBasic Metabolic,Non-Fastingon 89-05-1395Abirjorzhu mass conc0.98 mg/dLNormal0.70-1.30 [facility] HospitalComment on above:Order Comment: Is Patient Fasting? YesPerformed By: #### L400.0152, L400.2200, L400.5100 ####[facility] ([facility])[address] [phone] Sandy, MDGFR/1.73 sq M predicted among non-blacks MDRD vol rate/area (S/P/Bld)mL/min/{1.73_m2} NormalOhiohealth Grove City Methodist HospitalComment on above:Order Comment: Is Patient Fasting? YesResult Comment: Chronic Kidney Disease stages by NKDFStage eGFR I >90 II 60-89 III 30-59 IV 15-29 V <15 or dialysisAGE(years) AVERAGE GFR 50-59 93 ml/min/1.73 square metersNote:This result is normalized to 1.73 square meter body surface area. Height and weight are not factored.Performed By: #### L400.0152, L400.2200, L400.5100 ####[facility] ([facility])[address] [phone] Sandy, MDAnion gap 3 molar conc8 mmol/LNormal4-12[facility] on above:Order Comment: Is Patient Fasting? YesPerformed By: #### L400.0152, L400.2200, L400.5100 ####[facility] ([facility])[address] [place] [phone] Sandy, MDCalcium mass conc8.8 mg/dLNormal8.8-10.5[facility] HospitalCommunising memorial hospital on above:Order Comment: Is Patient Fasting? Yes Performed By: #### L400.0152, L400.2200, L400.5100 ####[facility] ([facility])[address] [phone] Sandy, MDChloride molar rbih073 mmol/XGwnnzn602-420GbgwSelect Medical Specialty Hospital - [place] on above: Order Comment: Is Patient Fasting? YesPerformed By: #### L400.0152, L400.2200, L400.5100 ####[facility] ([facility])[address], [place] [phone] Sandy, MDCO2 molar conc22 mmol/JUihltu22-95FllmSelect Medical Specialty Hospital - [place] on above:Order Comment: Is Patient Fasting? YesPerformed By: #### L400.0152, L400.2200, L400.5100 ####[facility] ([facility])[address], [place] [phone] Sandy MDGlucose mass wxiw971 mg/vCAbvoil55-995YwurSelect Medical Specialty Hospital [facility] [place] on above:Order Comment: Is Patient Fasting? YesResult Comment: *This reference range applies to fasting specimens only.Performed By: #### L400.0152, L400.2200, L400.5100 ####Main [facility] ([facility])[address], [place] [phone] Sandy, MDPotassium molar conc4.4 mmol/LNormal3.6-5.0[facility] on above:Order Comment: Is Patient Fasting? YesPerformed By: #### L400.0152, L400.2200, L400.5100 ####[facility] ([facility])[address], [place] [phone] Sandy, MDSodium molar mljr227 mmol/ODqc844-689WtwaSelect Medical Specialty Hospital - [place] on above:Order Comment: Is Patient Fasting? Yes Performed By: #### L400.0152, L400.2200, L400.5100 ####[facility] ([facility])[address], [place] [phone] Sandy MDUrea nitrogen mass conc17 mg/dLNormal7-20[facility] SystemComment on above: Order Comment: Is Patient Fasting? YesPerformed By: #### L400.0152, L400.2200, L400.5100 ####[facility] ([facility])[address], [place] [phone] Sandy, MDCBC with Differentialon 59-97-1039Fti Baso Count0 /cmmNormal0-200[facility] HospitalComment on above:Performed By: #### L400.0152, L400.2200, L400.5100 ####[facility] ([facility])[address], [place] [phone] Sandy, MDAbs Eos Ieivx931 /cmmNormal0-500[facility] HospitalComment on above:Performed By: #### L400.0152, L400.2200, L400.5100 ####[facility] ([facility])[address], [place] [phone] Sandy, MDAbs [place] Twpdp5505 /cmmHigh0-800 [facility] HospitalComment on above:Performed By: #### L400.0152, L400.2200, L400.5100 ####[facility] ([facility])[address], [place] [phone] Sandy, MDAbs Neut Nrihx8487 /hhuSbxtnx5938-4228ZeysOhiohealth Grove City Methodist HospitalComment on above:Performed By: #### L400.0152, L400.2200, L400.5100 ####[facility] ([facility])[address], [place] [phone] Sandy, MDBasophils Auto #/vol (Bld)0.5 %Normal0-2LKindred Hospital DaytonComment on above:Performed By: #### L400.0152, L400.2200, L400.5100 ####[facility] ([facility])[address], [place] [phone] Nivar, MDEOS-Auto Diff2.2 %Normal0-6[facility] HospitalComment on above:Performed By: #### L400.0152, L400.2200, L400.5100 ####[facility] ([facility])[address], [place] [phone] Nivar, MDErythrocyte distribution width Auto Ratio (RBC) 17.7 %High12.0-16.0[facility] HospitalComment on above:Performed By: #### L400.0152, L400.2200, L400.5100 ####[facility] ([facility])[address], [place] [phone] Nivar, MDHematocrit Auto Volume Fraction (Bld)27.2 %Low40.0-49.0[facility] HospitalComment on above:Performed By: #### L400.0152, L400.2200, L400.5100 ####[facility] ([facility])[address], [place] [phone] Nivar, MD Hemoglobin mass conc (Bld)8.9 g/dLLow13.5-16.5[facility] HospitalComment on above:Performed By: #### L400.0152, L400.2200, L400.5100 ####[facility] ([facility])[address], [place] [phone] Nivar, MD Lymphocytes Auto #/vol (Bld)2100 /ewzDkxtbr2640-3547MgbfOhiohealth Grove City Methodist Hospital Comment on above:Performed By: #### L400.0152, L400.2200, L400.5100 ####[facility] ([facility])[address], [place] [phone] Nivar, MDLymphocytes/100 WBC Auto (Bld)25.7 %Grgcdz59-77NrcvOhiohealth Grove City Methodist Hospital Comment on above:Performed By: #### L400.0152, L400.2200, L400.5100 ####[facility] ([facility])[address], [place] [phone] Sandy, MDMCH Auto Entitic mass (RBC)30.0 jgSkinhg62.5-33.0[facility] Comment on above:Performed By: #### L400.0152, L400.2200, L400.5100 ####[facility] ([facility])[address], [place] [phone] Sandy, MDMCHC Auto mass conc (RBC)32.6 g/dLLow33.0-36.0[facility] Comment on above:Performed By: #### L400.0152, L400.2200, L400.5100 ####[facility] ([facility])[address], [place] [phone] Sandy, MDMCV Auto Entitic volume (RBC)92.2 CU MVFEzaqlu49-88TmveOhiohealth Grove City Methodist Hospital Comment on above:Performed By: #### L400.0152, L400.2200, L400.5100 ####[facility] ([facility])[address], [place] [phone] Sandy, MDMono- Auto Diff11.6 %High2-10[facility] HospitalComment on above: Performed By: #### L400.0152, L400.2200, L400.5100 ####[facility] ([facility])[address], [place] [phone] Sandy, MDNeut-Auto Diff60.0 %Yskqfx16-55BpwbOhiohealth Grove City Methodist HospitalComment on above:Performed By: #### L400.0152, L400.2200, L400.5100 ####[facility] ([facility])[address], [place] [phone] Sandy, MDNRBC-Auto0.1 /100 WBCNormal<1LKindred Hospital DaytonComment on above:Performed By: #### L400.0152, L400.2200, L400.5100 ####[facility] ([facility])[address], [place] [phone] Sandy, MDPlatelets Auto #/vol (Bld)444 th/zkfHysp831-355XdnkOhiohealth Grove City Methodist HospitalComment on above:Performed By: #### L400.0152, L400.2200, L400.5100 ####[facility] ([facility])[address], [place] [phone] Sandy, MDRBC Auto #/vol (Bld)2.95 mil/cmm Low4.50-6.00[facility] HospitalComment on above:Performed By: #### L400.0152, L400.2200, L400.5100 ####[facility] ([facility])[address], [place] [phone] Sandy, MDWBC Auto #/vol (Bld)8.4 th/cmm Normal4.4-10.5[facility] HospitalComment on above:Performed By: #### L400.0152, L400.2200, L400.5100 ####[facility] ([facility])[address], [place] [phone] Sandy, MDMagnesiumon 14-49-6177Hzanuxnnl mass conc1.7 mg/dLLow1.8-2.5[facility] HospitalComment on above:Order Comment: Is Patient Fasting? YesPerformed By: #### L400.0152, L400.2200, L400.5100 ####[facility] ([facility])[address], [place] [phone] Sandy, MDPrealbuminon 76-47-8164Dzrfkouton mass conc19.5 mg/cQTflioc67.0-38.0[facility] HospitalComment on above:Order Comment: Is Patient Fasting? YesPerformed By: #### L400.0152, L400.2200, L400.5100 ####[facility] ([facility])[address], [place] [phone] Nivar, MDTriglycerideson 60-08-8643Jgbsoiggzhls mass conc96 mg/dLNormal<150[facility] HospitalComment on above:Order Comment: Is Patient Fasting? YesPerformed By: #### L400.0152, L400.2200, L400.5100 ####[facility] ([facility])[address], [place] [phone] Nivar, MDBasic Metabolic,Non-Fastingon 34-63-2383Pmpjg gap 3 molar conc7 mmol/LNormal4-12[facility] HospitalComment on above: Performed By: #### L400.0152, L400.2200, L400.5100 ####[facility] ([facility])[address], [place] [phone] Sandy, MDCalcium mass conc8.5 mg/dLLow8.8-10.5[facility] HospitalComment on above: Performed By: #### L400.0152, L400.2200, L400.5100 ####[facility] ([facility])[address], [place] [phone] Sandy, MDChloride molar pdso088 mmol/BKjvnqg392-042BfdyOhiohealth Grove City Methodist HospitalComment on above: Performed By: #### L400.0152, L400.2200, L400.5100 ####[facility] ([facility])[address], [place] [phone] Sandy, MDCO2 molar conc23 mmol/XTakwqq85-51Lqut Memorial Health SystemComment on above:Performed By: #### L400.0152, L400.2200, L400.5100 ####[facility] ([facility])[address] [place] [phone] Sandy, MDCreatinine mass conc 0.86 mg/dLNormal0.70-1.30[facility] HospitalComment on above:Performed By: #### L400.0152, L400.2200, L400.5100 ####[facility] ([facility])[address] [place] [phone] Sandy MDGFR/1.73 sq M predicted among non-blacks MDRD vol rate/area (S/P/Bld)mL/min/{1.73_m2}Normal [facility] HospitalComment on above:Result Comment: Chronic Kidney Disease stages by NKDFStage eGFR I >90 II 60-89 III 30-59 IV 15-29 V <15 or dialysisAGE(years) AVERAGE GFR 50-59 93 ml/min/1.73 square metersNote:This result is normalized to 1.73 square meter body surface area. Height and weight are not factored.Performed By: #### L400.0152, L400.2200, L400.5100 ####[facility] ([facility])[address] [place] [phone] Sandy MDGlucose mass xlth895 mg/kCRtadxj54-580ZmhlOhiohealth Grove City Methodist HospitalComment on above:Result Comment: *This reference range applies to fasting specimens only.Performed By: #### L400.0152, L400.2200, L400.5100 ####[facility] ([facility])[address] [place] [phone] Sandy, MDPotassium molar conc4.2 mmol/LNormal3.6-5.0[facility] HospitalComment on above:Performed By: #### L400.0152, L400.2200, L400.5100 ####[facility] ([facility])[address], [place] [phone] Sandy, MDSodium molar byeg159 mmol/RGhc728-019RgjjOhiohealth Grove City Methodist HospitalComment on above:Performed By: #### L400.0152, L400.2200, L400.5100 ####[facility] ([facility])[address], [place] [phone] Sandy, MDUrea nitrogen mass conc16 mg/dLNormal7-20[facility] HospitalComment on above:Performed By: #### L400.0152, L400.2200, L400.5100 ####[facility] ([facility])[address], [place] [phone] Sandy, MDMagnesiumon 39-97-7695Vefvzdogn mass conc1.7 mg/dLLow1.8-2.5[facility] HospitalComment on above:Performed By: #### L400.0152, L400.2200, L400.5100 ####[facility] ([facility])[address], [place] [phone] MD SandyBasic Metabolic,Non-Fastingon 29-76-6245Aeeqk gap 3 molar conc9 mmol/LNormal4-12[facility] Comment on above:Performed By: #### L400.0202, L400.0302, L400.2200, L400.2500, L400.5100, L404.6500 ####[facility] ([facility])[address], [place] [phone] Sandy, MDCalcium mass conc8.5 mg/dLLow8.8-10.5[facility] HospitalComment on above:Performed By: #### L400.0202, L400.0302, L400.2200, L400.2500, L400.5100, L404.6500 ####[facility] ([facility])[address] [place] [phone] Sandy, MDChloride molar conc 99 mmol/VBjd826-540VjhtOhiohealth Grove City Methodist HospitalComment on above:Performed By: #### L400.0202, L400.0302, L400.2200, L400.2500, L400.5100, L404.6500 ####[facility] ([facility])[address] [place] [phone] Sandy, MDCO2 molar conc23 mmol/UVdsdjh10-79ZgqtOhiohealth Grove City Methodist HospitalComment on above: Performed By: #### L400.0202, L400.0302, L400.2200, L400.2500, L400.5100, L404.6500 ####[facility] ([facility])[address] [place] [phone] Sandy, MDCreatinine mass conc0.96 mg/dLNormal0.70-1.30 [facility] HospitalComment on above:Performed By: #### L400.0202, L400.0302, L400.2200, L400.2500, L400.5100, L404.6500 ####[facility] ([facility])[address] [place], [place] [phone] Sandy, MDGFR/1.73 sq M predicted among non-blacks MDRD vol rate/area (S/P/Bld)mL/min/{1.73_m2} NormalOhiohealth Grove City Methodist HospitalComment on above:Result Comment: Chronic Kidney Disease stages by NKDFStage eGFR I >90 II 60-89 III 30-59 IV 15-29 V <15 or dialysisAGE(years) AVERAGE GFR 50-59 93 ml/min/1.73 square metersNote:This result is normalized to 1.73 square meter body surface area. Height and weight are not factored.Performed By: #### L400.0202, L400.0302, L400.2200, L400.2500, L400.5100, L404.6500 ####[facility] ([facility])[address], [place] [phone] Sandy, MDGlucose mass conc97 mg/jDIdkcgv22-581FhrcOhiohealth Grove City Methodist HospitalComment on above:Result Comment: *This reference range applies to fasting specimens only.Performed By: #### L400.0202, L400.0302, L400.2200, L400.2500, L400.5100, L404.6500 ####[facility] ([facility])[address], [place] [phone] Sandy, MDPotassium molar conc4.0 mmol/LNormal3.6-5.0[facility] HospitalComment on above:Performed By: #### L400.0202, L400.0302, L400.2200, L400.2500, L400.5100, L404.6500 ####[facility] ([facility])[address], [place] [phone] Sandy, MDSodium molar zmbv726 mmol/BAee991-020JvdmOhiohealth Grove City Methodist HospitalComment on above:Performed By: #### L400.0202, L400.0302, L400.2200, L400.2500, L400.5100, L404.6500 ####[facility] ([facility])[address], [place] [phone] Sandy, MDUrea nitrogen mass conc18 mg/dLNormal7-20[facility] HospitalComment on above:Performed By: #### L400.0202, L400.0302, L400.2200, L400.2500, L400.5100, L404.6500 ####[facility] ([facility])[address], [place] [phone] Sandy, MDMagnesiumon 90-54-4060Olasqexks mass conc1.7 mg/dLLow1.8-2.5[facility] HospitalComment on above:Performed By: #### L400.0202, L400.0302, L400.2200, L400.2500, L400.5100, L404.6500 ####[facility] ([facility])[address], [place] [phone] Sandy, MDBasic Metabolic,Non-Fastingon 64-44-4025Ilpxq gap 3 molar conc7 mmol/LNormal4-12[facility] HospitalComment on above:Performed By: #### L400.0202, L400.0302, L400.2200, L400.2500, L400.5100, L404.6500 ####[facility] ([facility])[address], [place] [phone] Sandy, MDCalcium mass conc8.9 mg/dLNormal8.8-10.5[facility] HospitalComment on above:Performed By: #### L400.0202, L400.0302, L400.2200, L400.2500, L400.5100, L404.6500 ####[facility] ([facility])[address], [place] [phone] Sandy, MDChloride molar wxec522 mmol/CGrbcyo909-753EphjOhiohealth Grove City Methodist HospitalComment on above:Performed By: #### L400.0202, L400.0302, L400.2200, L400.2500, L400.5100, L404.6500 ####[facility] ([facility])[address], [place] [phone] Sandy, MDCO2 molar conc24 mmol/MNtakkn77-68Rdcs Memorial Health SystemComment on above:Performed By: #### L400.0202, L400.0302, L400.2200, L400.2500, L400.5100, L404.6500 ####[facility] ([facility])[address], [place] [phone] Sandy, MDCreatinine mass conc 1.00 mg/dLNormal0.70-1.30[facility] HospitalComment on above:Performed By: #### L400.0202, L400.0302, L400.2200, L400.2500, L400.5100, L404.6500 ####[facility] ([facility])[address], [place] [phone] Sandy, MDGFR/1.73 sq M predicted among non-blacks MDRD vol rate/area (S/P/Bld)mL/min/{1.73_m2}NormalOhiohealth Grove City Methodist HospitalComment on above:Result Comment: Chronic Kidney Disease stages by NKDFStage eGFR I >90 II 60-89 III 30-59 IV 15-29 V <15 or dialysisAGE(years) AVERAGE GFR 50-59 93 ml/min/1.73 square metersNote:This result is normalized to 1.73 square meter body surface area. Height and weight are not factored.Performed By: #### L400.0202, L400.0302, L400.2200, L400.2500, L400.5100, L404.6500 ####[facility] ([facility])[address] [place] [phone] Sandy, MDGlucose mass conc94 mg/cJJecgox75-345KkjoOhiohealth Grove City Methodist HospitalCommunising memorial hospital on above:Result Comment: *This reference range applies to fasting specimens only.Performed By: #### L400.0202, L400.0302, L400.2200, L400.2500, L400.5100, L404.6500 ####[facility] ([facility])[address], [place] [phone] Sandy, MDPotassium molar conc 4.2 mmol/LNormal3.6-5.0[facility] HospitalComment on above:Performed By: #### L400.0202, L400.0302, L400.2200, L400.2500, L400.5100, L404.6500 ####[facility] ([facility])[address], [place] [phone] Sandy, MDSodium molar tzny774 mmol/VPjj442-607FfkoOhiohealth Grove City Methodist HospitalComment on above:Performed By: #### L400.0202, L400.0302, L400.2200, L400.2500, L400.5100, L404.6500 ####[facility] ([facility])[address], [place] [phone] Nivar, MDUrea nitrogen mass conc18 mg/dLNormal7-20[facility] HospitalComment on above:Performed By: #### L400.0202, L400.0302, L400.2200, L400.2500, L400.5100, L404.6500 ####[facility] ([facility])[address], [place] [phone] Sandy, MDMagnesiumon 55-76-0323Wuiwpjzwu mass conc1.7 mg/dLLow1.8-2.5[facility] Comment on above:Performed By: #### L400.0202, L400.0302, L400.2200, L400.2500, L400.5100, L404.6500 ####[facility] ([facility])[address], [place] [phone] Nivar, MDBasic Metabolic,Non-Fastingon 76-61-2145Jplpf gap 3 molar conc8 mmol/LNormal4-12[facility] HospitalComment on above: Performed By: #### L400.0202, L400.0302, L400.2200, L400.2500, L400.5100, L404.6500 ####[facility] ([facility])[address], [place] [phone] Sandy, MDCalcium mass conc8.6 mg/dLLow8.8-10.5[facility] HospitalComment on above:Performed By: #### L400.0202, L400.0302, L400.2200, L400.2500, L400.5100, L404.6500 ####[facility] ([facility])[address] [place], [place] [id number] Sandy, MDChloride molar conc 102 mmol/CCgmsck248-289GyixOhiohealth Grove City Methodist HospitalComment on above:Performed By: #### L400.0202, L400.0302, L400.2200, L400.2500, L400.5100, L404.6500 ####Main Laboratory ([facility])[address] [place], [place] [phone] Sandy, MDCO2 molar conc21 mmol/NZyebxc57-98OeioOhiohealth Grove City Methodist HospitalComment on above: Performed By: #### L400.0202, L400.0302, L400.2200, L400.2500, L400.5100, L404.6500 ####Main Laboratory ([facility])[address], [place] [phone] Sandy, MDCreatinine mass conc0.98 mg/dLNormal0.70-1.30 [facility] HospitalComment on above:Performed By: #### L400.0202, L400.0302, L400.2200, L400.2500, L400.5100, L404.6500 ####[facility] ([facility])[address] [place] [phone] Nivar, MDGFR/1.73 sq M predicted among non-blacks MDRD vol rate/area (S/P/Bld)mL/min/{1.73_m2} NormalOhiohealth Grove City Methodist HospitalComment on above:Result Comment: Chronic Kidney Disease stages by NKDFStage eGFR I >90 II 60-89 III 30-59 IV 15-29 V <15 or dialysisAGE(years) AVERAGE GFR 50-59 93 ml/min/1.73 square metersNote:This result is normalized to 1.73 square meter body surface area. Height and weight are not factored.Performed By: #### L400.0202, L400.0302, L400.2200, L400.2500, L400.5100, L404.6500 ####[facility] ([facility])[address], [place] [phone] Nivar, MDGlucose mass txqm735 mg/rTQmbpyv02-543XrxsOhiohealth Grove City Methodist HospitalComment on above:Result Comment: *This reference range applies to fasting specimens only.Performed By: #### L400.0202, L400.0302, L400.2200, L400.2500, L400.5100, L404.6500 ####[facility] ([facility])[address], [place] [phone] Sandy, MDPotassium molar conc4.2 mmol/LNormal3.6-5.0[facility] HospitalComment on above:Performed By: #### L400.0202, L400.0302, L400.2200, L400.2500, L400.5100, L404.6500 ####[facility] ([facility])[address], [place] [phone] Sandy, MDSodium molar gooz424 mmol/PCpc171-312RxhgOhiohealth Grove City Methodist HospitalComment on above:Performed By: #### L400.0202, L400.0302, L400.2200, L400.2500, L400.5100, L404.6500 ####[facility] ([facility])[address] [place] [phone] Nivar, MDUrea nitrogen mass conc16 mg/dLNormal7-20[facility] HospitalComment on above:Performed By: #### L400.0202, L400.0302, L400.2200, L400.2500, L400.5100, L404.6500 ####[facility] ([facility])[address] [place] [phone] Nivar, MDMagnesiumon 15-07-9536Rvtefvipr mass conc1.8 mg/dLNormal1.8-2.5[facility] Methodist HospitalComment on above:Performed By: #### L400.0202, L400.0302, L400.2200, L400.2500, L400.5100, L404.6500 ####[facility] ([facility])[address] [place] [phone] Nivar, MDPhosphoruson 31-76-3554Tkcuqncnt mass conc4.2 mg/dLNormal2.4-4.7[facility] Comment on above:Performed By: #### L400.0202, L400.0302, L400.2200, L400.2500, L400.5100, L404.6500 ####[facility] ([facility])[address] [place] [phone] Nivar, MDBasic Metabolic,Non-Fastingon 56-75-0963Rvaco gap 3 molar conc7 mmol/LNormal4-12[facility] HospitalComment on above: Performed By: #### L400.0202, L400.0302, L400.2200, L400.2500, L400.5100, L404.6500 ####[facility] ([facility])[address] [place], [place] [phone] Sandy, MDCalcium mass conc8.6 mg/dLLow8.8-10.5[facility] HospitalComment on above:Performed By: #### L400.0202, L400.0302, L400.2200, L400.2500, L400.5100, L404.6500 ####[facility] ([facility])[address], [place] [phone] Sandy, MDChloride molar conc 103 mmol/CHntanf642-504TvokOhiohealth Grove City Methodist HospitalComment on above:Performed By: #### L400.0202, L400.0302, L400.2200, L400.2500, L400.5100, L404.6500 ####[facility] ([facility])[address], [place] [phone] Sandy, MDCO2 molar conc23 mmol/CFiihxg61-30XhmaOhiohealth Grove City Methodist HospitalComment on above: Performed By: #### L400.0202, L400.0302, L400.2200, L400.2500, L400.5100, L404.6500 ####[facility] ([facility])[address], [place] [phone] Sandy, MDCreatinine mass conc1.00 mg/dLNormal0.70-1.30 [facility] HospitalComment on above:Performed By: #### L400.0202, L400.0302, L400.2200, L400.2500, L400.5100, L404.6500 ####[facility] ([facility])[address], [place] [phone] Sandy, MDGFR/1.73 sq M predicted among non-blacks MDRD vol rate/area (S/P/Bld)mL/min/{1.73_m2} NormalOhiohealth Grove City Methodist HospitalComment on above:Result Comment: Chronic Kidney Disease stages by NKDFStage eGFR I >90 II 60-89 III 30-59 IV 15-29 V <15 or dialysisAGE(years) AVERAGE GFR 50-59 93 ml/min/1.73 square metersNote:This result is normalized to 1.73 square meter body surface area. Height and weight are not factored.Performed By: #### L400.0202, L400.0302, L400.2200, L400.2500, L400.5100, L404.6500 ####[facility] ([facility])[address], [place] [phone] Sandy, MDGlucose mass mmve851 mg/gUEbbzll06-067YjutSelect Medical Specialty Hospital - [place] on above:Result Comment: *This reference range applies to fasting specimens only.Performed By: #### L400.0202, L400.0302, L400.2200, L400.2500, L400.5100, L404.6500 ####[facility] ([facility])[address], [place] [phone] Sandy, MDPotassium molar conc4.1 mmol/LNormal3.6-5.0[facility] on above:Performed By: #### L400.0202, L400.0302, L400.2200, L400.2500, L400.5100, L404.6500 ####[facility] ([facility])[address], [place] [phone] Sandy, MDSodium molar bzap978 mmol/PUyl255-362ReoaSelect Medical Specialty Hospital - [place] on above:Performed By: #### L400.0202, L400.0302, L400.2200, L400.2500, L400.5100, L404.6500 ####[facility] ([facility])[address], [place] [phone] Nivar, MDUrea nitrogen mass conc20 mg/dLNormal7-20[facility] HospitalComment on above:Performed By: #### L400.0202, L400.0302, L400.2200, L400.2500, L400.5100, L404.6500 ####[facility] ([facility])[address] [place] [phone] Nivar, MDMagnesiumon 77-27-2122Dybuoizgt mass conc1.8 mg/dLNormal1.8-2.5[facility] HospitalComment on above:Performed By: #### L400.0202, L400.0302, L400.2200, L400.2500, L400.5100, L404.6500 ####[facility] ([facility])[address], [place] [phone] Nivar, MDBasic Metabolic,Non-Fastingon 74-79-6973Izadq gap 3 molar conc7 mmol/LNormal4-12[facility] HospitalComment on above:Performed By: #### L400.0202, L400.0302, L400.2200, L400.2500, L400.5100, L404.6500 ####[facility] ([facility])[address] [place] [phone] Sandy, MDCalcium mass conc8.4 mg/dLLow8.8-10.5[facility] HospitalComment on above:Performed By: #### L400.0202, L400.0302, L400.2200, L400.2500, L400.5100, L404.6500 ####[facility] ([facility])[address], [place] [phone] Sandy, MDChloride molar gcgc820 mmol/IPdbffn084-619UonwOhiohealth Grove City Methodist HospitalComment on above:Performed By: #### L400.0202, L400.0302, L400.2200, L400.2500, L400.5100, L404.6500 ####[facility] ([facility])[address] [place] [phone] Sandy, MDCO2 molar conc21 mmol/VWgmfxd81-23MhecOhiohealth Grove City Methodist HospitalComment on above:Performed By: #### L400.0202, L400.0302, L400.2200, L400.2500, L400.5100, L404.6500 ####[facility] ([facility])[address] [place] [phone] Sandy, MDCreatinine mass conc 1.07 mg/dLNormal0.70-1.30[facility] HospitalComment on above:Performed By: #### L400.0202, L400.0302, L400.2200, L400.2500, L400.5100, L404.6500 ####[facility] ([facility])[address], [place] [phone] Sandy, MDGFR/1.73 sq M predicted among non-blacks MDRD vol rate/area (S/P/Bld)mL/min/{1.73_m2}NormalOhiohealth Grove City Methodist HospitalComment on above:Result Comment: Chronic Kidney Disease stages by NKDFStage eGFR I >90 II 60-89 III 30-59 IV 15-29 V <15 or dialysisAGE(years) AVERAGE GFR 50-59 93 ml/min/1.73 square metersNote:This result is normalized to 1.73 square meter body surface area. Height and weight are not factored.Performed By: #### L400.0202, L400.0302, L400.2200, L400.2500, L400.5100, L404.6500 ####[facility] ([facility])[address] [place] [phone] Sandy, MDGlucose mass dlar369 mg/pRTbnwyk98-967LipjOhiohealth Grove City Methodist HospitalComment on above:Result Comment: *This reference range applies to fasting specimens only.Performed By: #### L400.0202, L400.0302, L400.2200, L400.2500, L400.5100, L404.6500 ####[facility] ([facility])[address], [place] [phone] Sandy, MDPotassium molar conc 3.9 mmol/LNormal3.6-5.0[facility] HospitalComment on above:Performed By: #### L400.0202, L400.0302, L400.2200, L400.2500, L400.5100, L404.6500 ####[facility] ([facility])[address], [place] [phone] Sandy, MDSodium molar xqud733 mmol/KWey063-409JgcmOhiohealth Grove City Methodist HospitalComment on above:Performed By: #### L400.0202, L400.0302, L400.2200, L400.2500, L400.5100, L404.6500 ####[facility] ([facility])[address], [place] [phone] Nivar, MDUrea nitrogen mass conc20 mg/dLNormal7-20[facility] HospitalComment on above:Performed By: #### L400.0202, L400.0302, L400.2200, L400.2500, L400.5100, L404.6500 ####[facility] ([facility])[address], [place] [phone] Sandy, MDMagnesiumon 11-80-0717Abfcenowt mass conc1.7 mg/dLLow1.8-2.5[facility] Comment on above:Performed By: #### L400.0202, L400.0302, L400.2200, L400.2500, L400.5100, L404.6500 ####[facility] ([facility])[address], [place] [phone] Sandy, MDBasic Metabolic,Non-Fastingon 18-51-9284Wcmtx gap 3 molar conc7 mmol/LNormal4-12[facility] HospitalComment on above: Performed By: #### L400.0202, L400.0302, L400.2200, L400.2500, L400.5100, L404.6500 ####[facility] ([facility])[address], [place] [phone] Sandy, MDCalcium mass conc8.4 mg/dLLow8.8-10.5[facility] HospitalComment on above:Performed By: #### L400.0202, L400.0302, L400.2200, L400.2500, L400.5100, L404.6500 ####[facility] ([facility])[address], [place] [phone] Sandy, MDChloride molar conc 104 mmol/RTkosfh369-002SddqOhiohealth Grove City Methodist HospitalComment on above:Performed By: #### L400.0202, L400.0302, L400.2200, L400.2500, L400.5100, L404.6500 ####[facility] ([facility])[address], [place] [phone] Sandy, MDCO2 molar conc21 mmol/WVqyspc21-88YocgOhiohealth Grove City Methodist HospitalComment on above: Performed By: #### L400.0202, L400.0302, L400.2200, L400.2500, L400.5100, L404.6500 ####[facility] ([facility])[address], [place] [phone] Sandy, MDCreatinine mass conc1.03 mg/dLNormal0.70-1.30 [facility] HospitalComment on above:Performed By: #### L400.0202, L400.0302, L400.2200, L400.2500, L400.5100, L404.6500 ####[facility] ([facility])[address], [place] [phone] Nivar, MDGFR/1.73 sq M predicted among non-blacks MDRD vol rate/area (S/P/Bld)mL/min/{1.73_m2} NormalOhiohealth Grove City Methodist HospitalComment on above:Result Comment: Chronic Kidney Disease stages by NKDFStage eGFR I >90 II 60-89 III 30-59 IV 15-29 V <15 or dialysisAGE(years) AVERAGE GFR 50-59 93 ml/min/1.73 square metersNote:This result is normalized to 1.73 square meter body surface area. Height and weight are not factored.Performed By: #### L400.0202, L400.0302, L400.2200, L400.2500, L400.5100, L404.6500 ####[facility] ([facility])[address] [place] [phone] Nivar, MDGlucose mass conc85 mg/wFJdrwwl76-277WqjlOhiohealth Grove City Methodist HospitalComment on above:Result Comment: *This reference range applies to fasting specimens only.Performed By: #### L400.0202, L400.0302, L400.2200, L400.2500, L400.5100, L404.6500 ####[facility] ([facility])[address] [place], [place] [phone] Sandy, MDPotassium molar conc4.3 mmol/LNormal3.6-5.0[facility] HospitalComment on above:Performed By: #### L400.0202, L400.0302, L400.2200, L400.2500, L400.5100, L404.6500 ####[facility] ([facility])[address], [place] [phone] Sandy, MDSodium molar jgvn331 mmol/LDqv107-896DwleOhiohealth Grove City Methodist HospitalComment on above:Performed By: #### L400.0202, L400.0302, L400.2200, L400.2500, L400.5100, L404.6500 ####[facility] ([facility])[address], [place] [phone] Sandy, MDUrea nitrogen mass conc22 mg/dLHigh7-20[facility] HospitalComment on above:Performed By: #### L400.0202, L400.0302, L400.2200, L400.2500, L400.5100, L404.6500 ####[facility] ([facility])[address], [place] [phone] Sandy, MDCBC with Differentialon 93-89-5597Nsv Baso Count0 /cmmNormal0-200[facility] HospitalComment on above:Performed By: #### L400.0202, L400.0302, L400.2200, L400.2500, L400.5100, L404.6500 ####[facility] ([facility])[address], [place] [phone] Sandy, MDAbs Eos Fgakk261 /cmmNormal0-500[facility] HospitalComment on above:Performed By: #### L400.0202, L400.0302, L400.2200, L400.2500, L400.5100, L404.6500 ####[facility] ([facility])[address], [place] [phone] Sandy, MDAbs [place] Neqit346 /cmmNormal0-800[facility] HospitalComment on above: Performed By: #### L400.0202, L400.0302, L400.2200, L400.2500, L400.5100, L404.6500 ####[facility] ([facility])[address], [place] [phone] Alisa Delgado Neut Pzdol4638 /xaeBoptli2014-2639MusfOhiohealth Grove City Methodist HospitalComment on above:Performed By: #### L400.0202, L400.0302, L400.2200, L400.2500, L400.5100, L404.6500 ####[facility] ([facility])[address], [place] [phone] FREEDOM Delgadonisocytosis Auto Ql (Bld)1+NormalOhiohealth Grove City Methodist HospitalComment on above:Performed By: #### L400.0202, L400.0302, L400.2200, L400.2500, L400.5100, L404.6500 ####[facility] ([facility])[address], [place] [phone] MD SandyBasophils Auto #/vol (Bld)0.4 %Normal0-2LKindred Hospital DaytonComment on above:Performed By: #### L400.0202, L400.0302, L400.2200, L400.2500, L400.5100, L404.6500 ####[facility] ([facility])[address], [place] [phone] MD SandyEOS-Auto Diff2.6 %Normal0-6[facility] HospitalComment on above:Performed By: #### L400.0202, L400.0302, L400.2200, L400.2500, L400.5100, L404.6500 ####[facility] ([facility])[address], [place] [phone] Nivar, MDErythrocyte distribution width Auto Ratio (RBC)18.5 %High12.0-16.0[facility] HospitalComment on above: Performed By: #### L400.0202, L400.0302, L400.2200, L400.2500, L400.5100, L404.6500 ####[facility] ([facility])[address], [place] [phone] MD SandyHematocrit Auto Volume Fraction (Bld)26.6 %Low 40.0-49.0[facility] HospitalComment on above:Performed By: #### L400.0202, L400.0302, L400.2200, L400.2500, L400.5100, L404.6500 ####[facility] ([facility])[address], [place] [phone] MD SandyHemoglobin mass conc (Bld)8.4 g/dLLow13.5-16.5[facility] Comment on above:Performed By: #### L400.0202, L400.0302, L400.2200, L400.2500, L400.5100, L404.6500 ####[facility] ([facility])[address], [place] [phone] Sandy, Lymphocytes Auto #/vol (Bld)2700 /cmmNormal 1000-4800Ohio[facility] HospitalComment on above:Performed By: #### L400.0202, L400.0302, L400.2200, L400.2500, L400.5100, L404.6500 ####[facility] ([facility])[address], [place] [phone] Nivar, MDLymphocytes/100 WBC Auto (Bld)26.1 %Imyebe28-04AhhpOhiohealth Grove City Methodist Hospital Comment on above:Performed By: #### L400.0202, L400.0302, L400.2200, L400.2500, L400.5100, L404.6500 ####[facility] ([facility])[address], [place] [phone] Sandy, MDMCH Auto Entitic mass (RBC)29.6 pgNormal 27.5-33.0[facility] HospitalComment on above:Performed By: #### L400.0202, L400.0302, L400.2200, L400.2500, L400.5100, L404.6500 ####[facility] ([facility])[address], [place] [phone] Sandy, MDMCHC Auto mass conc (RBC)31.7 g/dLLow33.0-36.0[facility] Comment on above:Performed By: #### L400.0202, L400.0302, L400.2200, L400.2500, L400.5100, L404.6500 ####[facility] ([facility])[address], [place] [phone] Sandy, MDMCV Auto Entitic volume (RBC)93.3 CU MICNormal 80-97[facility] HospitalComment on above:Performed By: #### L400.0202, L400.0302, L400.2200, L400.2500, L400.5100, L404.6500 ####[facility] ([facility])[address], [place] [phone] Sandy, MDMono- Auto Diff7.7 %Normal2-10[facility] HospitalComment on above:Performed By: #### L400.0202, L400.0302, L400.2200, L400.2500, L400.5100, L404.6500 ####[facility] ([facility])[address], [place] [phone] Sandy, MDNeut-Auto Diff63.2 %Rugngi35-94QrfaOhiohealth Grove City Methodist HospitalComment on above:Performed By: #### L400.0202, L400.0302, L400.2200, L400.2500, L400.5100, L404.6500 ####[facility] ([facility])[address], [place] [phone] Sandy, MDNRBC-Auto0.1 /100 WBCNormal<1LKindred Hospital DaytonComment on above:Performed By: #### L400.0202, L400.0302, L400.2200, L400.2500, L400.5100, L404.6500 ####[facility] ([facility])[address], [place] [phone] Sandy, MDPlatelets Auto #/vol (Bld)295 th/avaMinwbk016-211UtbnOhiohealth Grove City Methodist Hospital Comment on above:Performed By: #### L400.0202, L400.0302, L400.2200, L400.2500, L400.5100, L404.6500 ####[facility] ([facility])[address], [place] [phone] Sandy, MDRBC Auto #/vol (Bld)2.85 mil/cmmLow4.50-6.00 [facility] HospitalComment on above:Performed By: #### L400.0202, L400.0302, L400.2200, L400.2500, L400.5100, L404.6500 ####[facility] ([facility])[address], [place] [phone] Sandy, MDWBC Auto #/vol (Bld)10.2 th/cmmNormal4.4-10.5[facility] HospitalComment on above: Performed By: #### L400.0202, L400.0302, L400.2200, L400.2500, L400.5100, L404.6500 ####[facility] ([facility])[address], [place] [phone] Nivar, MDFL MODIFIED BARIUM SWALLOW W VIDEOon 03-01-2018 FL MODIFIED BARIUM SWALLOW W VIDEOPROCEDURE: FL MODIFIED BARIUM SWALLOW W VIDEOCLINICAL INFORMATION: dysphagia, .COMPARISON: No priorstudy.TECHNIQUE: Fluoroscopy was provided to speech therapy to evaluate this patient's swallowing mechanism.Patient was administered barium of puree, thin, soft, and solid consistencies. Radiologist was available for the examination.Fluoroscopic time 1 minute 31 secondsImages: 10 sequencesFINDINGS:There was aspiration with thin liquids while using [...] Dr. Fidel Rodriguez on 03/01/2018 2:32 PMInterpreted by:Fidel Rodriguez MDSigned by:Fidel Rodriguez MD03/01/18Final result NormalCHRISTUS Santa Rosa Hospital – Medical CenterHepatic Function Panel (Liver)on 03-01-2018 Albumin mass conc3.1 g/dLLow3.5-5.0[facility] HospitalComment on above: Performed By: #### L400.0202, L400.0302, L400.2200, L400.2500, L400.5100, L404.6500 ####[facility] ([facility])[address], [place] [phone] Sandy, MDAlk Phos97 IU/OXdwxih71-369HzfrOhiohealth Grove City Methodist HospitalComment on above:Performed By: #### L400.0202, L400.0302, L400.2200, L400.2500, L400.5100, L404.6500 ####[facility] ([facility])[address], [place] [phone] Sandy, MDALT/SGPT19 IU/FUqslaq03-93QkmpOhiohealth Grove City Methodist HospitalComment on above:Performed By: #### L400.0202, L400.0302, L400.2200, L400.2500, L400.5100, L404.6500 ####[facility] ([facility])[address] [place] [phone] Sandy, MDAST/SGOT20 IU/L Ptnuth64-74HqtwOhiohealth Grove City Methodist HospitalComment on above:Performed By: #### L400.0202, L400.0302, L400.2200, L400.2500, L400.5100, L404.6500 ####[facility] ([facility])[address], [place] [phone] Sandy, MDBili,Direct< 0.1Low0.1-0.2LKindred Hospital DaytonComment on above: Performed By: #### L400.0202, L400.0302, L400.2200, L400.2500, L400.5100, L404.6500 ####[facility] ([facility])[address], [place] [phone] Sandy, MDBili,Total< 0.1Low0.2-1.0[facility] HospitalComment on above:Result Comment: Delta: 0.4 on 02/22/18-0402Performed By: #### L400.0202, L400.0302, L400.2200, L400.2500, L400.5100, L404.6500 ####[facility] ([facility])[address], [place] [phone] Sandy, MDProtein mass conc6.9 g/dLNormal6.2-8.0[facility] HospitalComment on above:Performed By: #### L400.0202, L400.0302, L400.2200, L400.2500, L400.5100, L404.6500 ####Main Laboratory ([facility])[address], [place] [phone] Sandy, MDMagnesiumon [id number] mass conc1.8 mg/dLNormal1.8-2.5[facility] HospitalComment on above:Performed By: #### L400.0202, L400.0302, L400.2200, L400.2500, L400.5100, L404.6500 ####Main Laboratory ([facility])[address], [place] [phone] Sandy, MDBalouisville medical center Metabolic Panel,Fastingon [id number] gap 3 molar conc5 mmol/LNormal 4-12[facility] HospitalComment on above:Performed By: #### L400.0202, L400.0302, L400.2200, L400.2500, L400.5100, L404.6500 ####Main Laboratory ([facility])[address], [place] [phone] Sandy, MDCalcium mass conc8.4 mg/dLLow8.8-10.5[facility] HospitalComment on above: Performed By: #### L400.0202, L400.0302, L400.2200, L400.2500, L400.5100, L404.6500 ####Main Laboratory ([facility])[address], [place] [phone] Sandy, MDChloride molar yeha207 mmol/JTdgzom796-270WxgcOhiohealth Grove City Methodist HospitalComment on above:Performed By: #### L400.0202, L400.0302, L400.2200, L400.2500, L400.5100, L404.6500 ####Main Laboratory ([facility])[address], [place] [phone] Sandy, MDCO2 molar conc22 mmol/EZbwppk89-39XtauOhiohealth Grove City Methodist HospitalComment on above:Performed By: #### L400.0202, L400.0302, L400.2200, L400.2500, L400.5100, L404.6500 ####Main Laboratory ([facility])[address] [place], [place] [phone] Nivar, MDCreatinine mass conc1.03 mg/dLNormal0.70-1.30[facility] Comment on above:Performed By: #### L400.0202, L400.0302, L400.2200, L400.2500, L400.5100, L404.6500 ####[facility] ([facility])[address] [place], [place] [phone] Nivar, MDGFR/1.73 sq M predicted among non-blacks MDRD vol rate/area (S/P/Bld)mL/min/{1.73_m2}NormalOhiohealth Grove City Methodist HospitalComment on above:Result Comment: Chronic Kidney Disease stages by NKDFStage eGFR I >90 II 60-89 III 30-59 IV 15-29 V <15 or dialysisAGE(years) AVERAGE GFR 50-59 93 ml/min/1.73 square metersNote:This result is normalized to 1.73 square meter body surface area. Height and weight are not factored.Performed By: #### L400.0202, L400.0302, L400.2200, L400.2500, L400.5100, L404.6500 ####[facility] ([facility])[address] [place], [place] [phone] Nivar, MDGlucose mass conc94 mg/eRKhchat42-739SzfcOhiohealth Grove City Methodist HospitalComment on above:Performed By: #### L400.0202, L400.0302, L400.2200, L400.2500, L400.5100, L404.6500 ####[facility] ([facility])[address], [place] [phone] Sandy, MDPotassium molar conc 3.7 mmol/LNormal3.6-5.0[facility] Methodist HospitalComment on above:Performed By: #### L400.0202, L400.0302, L400.2200, L400.2500, L400.5100, L404.6500 ####[facility] ([facility])[address], [place] [phone] Sandy, MDSodium molar bzyg630 mmol/UBrlhoh320-213OnoxOhiohealth Grove City Methodist HospitalComment on above:Performed By: #### L400.0202, L400.0302, L400.2200, L400.2500, L400.5100, L404.6500 ####[facility] ([facility])[address] [place], [place] [phone] Sandy, MDUrea nitrogen mass conc22 mg/dLHigh7-20[facility] Methodist HospitalComment on above:Performed By: #### L400.0202, L400.0302, L400.2200, L400.2500, L400.5100, L404.6500 ####[facility] ([facility])[address] [place], [place] [phone] Sandy, MDCBC with Differentialon 04-79-0315Eem Baso Count0 /cmmNormal0-200Ohio[facility] Methodist HospitalComment on above:Performed By: #### L400.0202, L400.0302, L400.2200, L400.2500, L400.5100, L404.6500 ####[facility] ([facility])[address], [place] [phone] Sandy, MDAbs Eos Nnxlu155 /cmmNormal0-500 [facility] HospitalComment on above:Performed By: #### L400.0202, L400.0302, L400.2200, L400.2500, L400.5100, L404.6500 ####[facility] ([facility])[address], [place] [phone] Sandy, MDAbs [place] Juxkd3121 /cmmHigh0-800Ohio[facility] City Methodist HospitalComment on above:Performed By: #### L400.0202, L400.0302, L400.2200, L400.2500, L400.5100, L404.6500 ####[facility] ([facility])[address], [place] [phone] Sandy, MDAbs Neut Lklmj1232 /vrwXeiv9881-0629BgqwOhiohealth Grove City Methodist HospitalComment on above:Performed By: #### L400.0202, L400.0302, L400.2200, L400.2500, L400.5100, L404.6500 ####[facility] ([facility])[address], [place] [phone] Sandy, MDAnisocytosis Auto Ql (Bld)1+NormalOhiohealth Grove City Methodist HospitalComment on above:Performed By: #### L400.0202, L400.0302, L400.2200, L400.2500, L400.5100, L404.6500 ####[facility] ([facility])[address], [place] [phone] Sandy, MDBasophils Auto #/vol (Bld)0.3 %Normal0-2LKindred Hospital DaytonComment on above:Performed By: #### L400.0202, L400.0302, L400.2200, L400.2500, L400.5100, L404.6500 ####[facility] ([facility])[address], [place] [phone] Sandy, MDEOS-Auto Diff2.9 %Normal0-6Ohio[facility] City Methodist HospitalComment on above: Performed By: #### L400.0202, L400.0302, L400.2200, L400.2500, L400.5100, L404.6500 ####[facility] ([facility])[address] [phone] Nivar, MDErythrocyte distribution width Auto Ratio (RBC) 18.2 %High12.0-16.0[facility] City Methodist HospitalComment on above:Performed By: #### L400.0202, L400.0302, L400.2200, L400.2500, L400.5100, L404.6500 ####[facility] ([facility])[address] [phone] Nivar, MDHematocrit Auto Volume Fraction (Bld)24.4 %Low40.0-49.0[facility] Methodist HospitalComment on above:Performed By: #### L400.0202, L400.0302, L400.2200, L400.2500, L400.5100, L404.6500 ####[facility] ([facility])[address] [place] [phone] Nivar, MDHemoglobin mass conc (Bld)7.6 g/dL Low13.5-16.5Ohio[facility] City Methodist HospitalComment on above:Performed By: #### L400.0202, L400.0302, L400.2200, L400.2500, L400.5100, L404.6500 ####[facility] ([facility])[address], [place] [phone] Nivar, MDLymphocytes Auto #/vol (Bld)3200 /isiCuoxip2921-4993NlezOhiohealth Grove City Methodist HospitalComment on above:Performed By: #### L400.0202, L400.0302, L400.2200, L400.2500, L400.5100, L404.6500 ####[facility] ([facility])[address], [place] [phone] Sandy, MDLymphocytes/100 WBC Auto (Bld)24.8 %Locxlt16-87EdrjOhiohealth Grove City Methodist HospitalComment on above:Performed By: #### L400.0202, L400.0302, L400.2200, L400.2500, L400.5100, L404.6500 ####[facility] ([facility])[address], [place] [phone] Sandy, MDMCH Auto Entitic mass (RBC)29.2 hrDrzlcw16.5-33.0[facility] Comment on above:Performed By: #### L400.0202, L400.0302, L400.2200, L400.2500, L400.5100, L404.6500 ####[facility] ([facility])[address], [place] [phone] Sandy, MDMCHC Auto mass conc (RBC)31.3 g/dLLow33.0-36.0 [facility] HospitalComment on above:Performed By: #### L400.0202, L400.0302, L400.2200, L400.2500, L400.5100, L404.6500 ####[facility] ([facility])[address] [place], [place] [phone] Sandy, MDMCV Auto Entitic volume (RBC)93.4 CU VAXUrbbvo85-16VqxaOhiohealth Grove City Methodist HospitalComment on above:Performed By: #### L400.0202, L400.0302, L400.2200, L400.2500, L400.5100, L404.6500 ####[facility] ([facility])[address], [place] [phone] Sandy, MDMono- Auto Diff7.7 %Normal2-10[facility] HospitalComment on above:Performed By: #### L400.0202, L400.0302, L400.2200, L400.2500, L400.5100, L404.6500 ####[facility] ([facility])[address], [place] [phone] Sandy, Neut-Auto Diff64.3 % Yfxymu18-46MiywOhiohealth Grove City Methodist HospitalComment on above:Performed By: #### L400.0202, L400.0302, L400.2200, L400.2500, L400.5100, L404.6500 ####[facility] ([facility])[address], [place] [phone] Sandy, MDNRBC-Auto0.1 /100 WBCNormal<1LKindred Hospital DaytonComment on above: Performed By: #### L400.0202, L400.0302, L400.2200, L400.2500, L400.5100, L404.6500 ####[facility] ([facility])[address], [place] [phone] Sandy, MDPlatelets Auto #/vol (Bld)295 th/cmmNormal 150-400Ohio[facility] Methodist HospitalComment on above:Performed By: #### L400.0202, L400.0302, L400.2200, L400.2500, L400.5100, L404.6500 ####[facility] ([facility])[address], [place] [phone] Sandy, MDRBC Auto #/vol (Bld)2.61 mil/cmmLow4.50-6.00[facility] HospitalComment on above: Performed By: #### L400.0202, L400.0302, L400.2200, L400.2500, L400.5100, L404.6500 ####[facility] ([facility])[address], [place] [phone] Sandy, MDWBC Auto #/vol (Bld)12.9 th/cmmHigh4.4-10.5[facility] HospitalComment on above:Performed By: #### L400.0202, L400.0302, L400.2200, L400.2500, L400.5100, L404.6500 ####[facility] ([facility])[address], [place] [phone] Sandy, MDMagnesiumon 93-02-1246Ukxfybkzq mass conc1.8 mg/dLNormal1.8-2.5[facility] Comment on above:Performed By: #### L400.0202, L400.0302, L400.2200, L400.2500, L400.5100, L404.6500 ####[facility] ([facility])[address] [place], [place] [phone] Sandy, MDPhosphoruson 90-59-9564Rffhfcxlg mass conc3.5 mg/dLNormal2.4-4.7[facility] HospitalComment on above:Performed By: #### L400.0202, L400.0302, L400.2200, L400.2500, L400.5100, L404.6500 ####[facility] ([facility])[address] [place], [place] [phone] Nivar, MDBasic Metabolic,Non-Fastingon 59-63-7326Gzjiz gap 3 molar conc7 mmol/LNormal 4-12[facility] HospitalComment on above:Performed By: #### L400.0202, L400.0302, L400.2200, L400.2500, L400.5100, L404.6500 ####[facility] ([facility])[address] [place], [place] [phone] Sandy, MDCalcium mass conc8.3 mg/dLLow8.8-10.5[facility] HospitalComment on above: Performed By: #### L400.0202, L400.0302, L400.2200, L400.2500, L400.5100, L404.6500 ####[facility] ([facility])[address] [place] [phone] Sandy, MDChloride molar uzxe181 mmol/ZPixzui108-726AuvmOhiohealth Grove City Methodist HospitalComment on above:Performed By: #### L400.0202, L400.0302, L400.2200, L400.2500, L400.5100, L404.6500 ####[facility] ([facility])[address] [place] [phone] Sandy, MDCO2 molar conc23 mmol/AYawyko63-45QxgdOhiohealth Grove City Methodist HospitalComment on above:Performed By: #### L400.0202, L400.0302, L400.2200, L400.2500, L400.5100, L404.6500 ####[facility] ([facility])[address] [place] [phone] Sandy, MDCreatinine mass conc1.21 mg/dLNormal0.70-1.30[facility] Comment on above:Performed By: #### L400.0202, L400.0302, L400.2200, L400.2500, L400.5100, L404.6500 ####[facility] ([facility])[address] [place] [phone] Sandy, MDGFR/1.73 sq M predicted among non-blacks MDRD vol rate/area (S/P/Bld)mL/min/{1.73_m2}NormalOhiohealth Grove City Methodist HospitalComment on above:Result Comment: Chronic Kidney Disease stages by NKDFStage eGFR I >90 II 60-89 III 30-59 IV 15-29 V <15 or dialysisAGE(years) AVERAGE GFR 50-59 93 ml/min/1.73 square metersNote:This result is normalized to 1.73 square meter body surface area. Height and weight are not factored.Performed By: #### L400.0202, L400.0302, L400.2200, L400.2500, L400.5100, L404.6500 ####[facility] ([facility])[address] [phone] Nivar, MDGlucose mass wuww159 mg/fNPbhqfc10-153HcckOhiohealth Grove City Methodist HospitalComment on above:Result Comment: *This reference range applies to fasting specimens only.Performed By: #### L400.0202, L400.0302, L400.2200, L400.2500, L400.5100, L404.6500 ####[facility] ([facility])[address], [place] [phone] Sandy, MDPotassium molar conc 3.8 mmol/LNormal3.6-5.0[facility] HospitalComment on above:Performed By: #### L400.0202, L400.0302, L400.2200, L400.2500, L400.5100, L404.6500 ####[facility] ([facility])[address], [place] [phone] Sandy, MDSodium molar mrxf967 mmol/SUnyrzo350-317HojoOhiohealth Grove City Methodist HospitalComment on above:Result Comment: Delta: 146 on 02/26/18Performed By: #### L400.0202, L400.0302, L400.2200, L400.2500, L400.5100, L404.6500 ####[facility] ([facility])[address], [place] [phone] Nivar, MDUrea nitrogen mass conc24 mg/dLHigh7-20[facility] HospitalComment on above: Performed By: #### L400.0202, L400.0302, L400.2200, L400.2500, L400.5100, L404.6500 ####[facility] ([facility])[address] [place] [phone] Sandy, MDMagnesiumon 49-18-5475Tflibhocw mass conc1.6 mg/dLLow1.8-2.5[facility] HospitalComment on above:Performed By: #### L400.0202, L400.0302, L400.2200, L400.2500, L400.5100, L404.6500 ####[facility] ([facility])[address] [place] [phone] Sandy, MDPhosphoruson 42-45-7872Edgxffrvv mass conc3.0 mg/dLNormal2.4-4.7[facility] HospitalComment on above:Performed By: #### L400.0202, L400.0302, L400.2200, L400.2500, L400.5100, L404.6500 ####[facility] ([facility])[address] [place] [phone] Nivar, MDBasic Metabolic,Non-Fastingon 88-02-4422Wkvqx gap 3 molar conc10 mmol/LNormal4-12[facility] HospitalComment on above:Performed By: #### L400.0202, L400.0302, L400.2200, L400.2500, L400.5100, L404.6500 ####[facility] ([facility])[address] [place] [phone] Sandy, MDCalcium mass conc8.7 mg/dLLow8.8-10.5[facility] HospitalComment on above:Performed By: #### L400.0202, L400.0302, L400.2200, L400.2500, L400.5100, L404.6500 ####[facility] ([facility])[address] [place] [phone] Sandy, MDChloride molar rycf860 mmol/DBxwc334-670EvtrOhiohealth Grove City Methodist HospitalComment on above:Performed By: #### L400.0202, L400.0302, L400.2200, L400.2500, L400.5100, L404.6500 ####[facility] ([facility])[address] [place] [phone] Sandy, MDCO2 molar conc22 mmol/UTspugr06-00MkscOhiohealth Grove City Methodist HospitalComment on above:Performed By: #### L400.0202, L400.0302, L400.2200, L400.2500, L400.5100, L404.6500 ####[facility] ([facility])[address] [place] [phone] Sandy, MDCreatinine mass conc 1.28 mg/dLNormal0.70-1.30[facility] HospitalComment on above:Performed By: #### L400.0202, L400.0302, L400.2200, L400.2500, L400.5100, L404.6500 ####[facility] ([facility])[address] [place] [phone] Sandy, MDGFR/1.73 sq M predicted among non-blacks MDRD vol rate/area (S/P/Bld)mL/min/{1.73_m2}NormalOhiohealth Grove City Methodist HospitalComment on above:Result Comment: Chronic Kidney Disease stages by NKDFStage eGFR I >90 II 60-89 III 30-59 IV 15-29 V <15 or dialysisAGE(years) AVERAGE GFR 50-59 93 ml/min/1.73 square metersNote:This result is normalized to 1.73 square meter body surface area. Height and weight are not factored.Performed By: #### L400.0202, L400.0302, L400.2200, L400.2500, L400.5100, L404.6500 ####[facility] ([facility])[address] [place] [phone] Nivar, MDGlucose mass wage156 mg/bEAnmogv57-366JxxcOhiohealth Grove City Methodist HospitalComment on above:Result Comment: *This reference range applies to fasting specimens only.Performed By: #### L400.0202, L400.0302, L400.2200, L400.2500, L400.5100, L404.6500 ####[facility] ([facility])[address] [place] [phone] Sandy, MDPotassium molar conc 3.6 mmol/LNormal3.6-5.0[facility] HospitalComment on above:Performed By: #### L400.0202, L400.0302, L400.2200, L400.2500, L400.5100, L404.6500 ####[facility] ([facility])[address] [place] [phone] Nivar, MDSodium molar srvx588 mmol/HMzlf745-928CrrnOhiohealth Grove City Methodist HospitalComment on above:Performed By: #### L400.0202, L400.0302, L400.2200, L400.2500, L400.5100, L404.6500 ####[facility] ([facility])[address] [place] [phone] Nivar, MDUrea nitrogen mass conc27 mg/dLHigh7-20[facility] HospitalComment on above:Performed By: #### L400.0202, L400.0302, L400.2200, L400.2500, L400.5100, L404.6500 ####[facility] ([facility])[address] [place] [phone] Nivar, MDMagnesiumon 71-58-8101Cfdkustep mass conc1.9 mg/dLNormal1.8-2.5[facility] Comment on above:Performed By: #### L400.0202, L400.0302, L400.2200, L400.2500, L400.5100, L404.6500 ####[facility] ([facility])[address] [place] [phone] Sandy, MDPhosphoruson 19-28-9859Htdvvbdfw mass conc3.5 mg/dLNormal2.4-4.7[facility] HospitalComment on above:Performed By: #### L400.0202, L400.0302, L400.2200, L400.2500, L400.5100, L404.6500 ####[facility] ([facility])[address] [place], [place] [phone] Nivar, Basijavid Metabolic,Non-Fastingon 69-24-9407Hkrxb gap 3 molar conc9 mmol/LNormal 4-12[facility] HospitalComment on above:Performed By: #### L400.0202, L400.0302, L400.2200, L400.2500, L400.5100, L404.6500 ####[facility] ([facility])[address] [place], [place] [phone] Sandy, MDCalcium mass conc8.2 mg/dLLow8.8-10.5[facility] HospitalComment on above: Performed By: #### L400.0202, L400.0302, L400.2200, L400.2500, L400.5100, L404.6500 ####[facility] ([facility])[address] [place], [place] [phone] Sandy, MDChloride molar wwrs801 mmol/HCftx951-895OmfsOhiohealth Grove City Methodist HospitalComment on above:Performed By: #### L400.0202, L400.0302, L400.2200, L400.2500, L400.5100, L404.6500 ####[facility] ([facility])[address] [place] [phone] Sandy, MDCO2 molar conc22 mmol/GYwldlh05-50AybuOhiohealth Grove City Methodist HospitalComment on above:Performed By: #### L400.0202, L400.0302, L400.2200, L400.2500, L400.5100, L404.6500 ####[facility] ([facility])[address] [place] [phone] Sandy, MDCreatinine mass conc1.32 mg/dLHigh0.70-1.30[facility] HospitalComment on above:Performed By: #### L400.0202, L400.0302, L400.2200, L400.2500, L400.5100, L404.6500 ####[facility] ([facility])[address] [place], [place] [phone] Sandy, MDGFR/1.73 sq M predicted among non-blacks MDRD vol rate/area (S/P/Bld)mL/min/{1.73_m2}NormalOhiohealth Grove City Methodist HospitalComment on above:Result Comment: Chronic Kidney Disease stages by NKDFStage eGFR I >90 II 60-89 III 30-59 IV 15-29 V <15 or dialysisAGE(years) AVERAGE GFR 50-59 93 ml/min/1.73 square metersNote:This result is normalized to 1.73 square meter body surface area. Height and weight are not factored.Performed By: #### L400.0202, L400.0302, L400.2200, L400.2500, L400.5100, L404.6500 ####[facility] ([facility])[address] [place] [phone] Sandy, MDGlucose mass conc96 mg/nWBzdjta79-213UbylOhiohealth Grove City Methodist HospitalComment on above:Result Comment: *This reference range applies to fasting specimens only.Performed By: #### L400.0202, L400.0302, L400.2200, L400.2500, L400.5100, L404.6500 ####[facility] ([facility])[address], [place] [phone] Sandy, MDPotassium molar conc 3.3 mmol/LLow3.6-5.0[facility] HospitalComment on above:Performed By: #### L400.0202, L400.0302, L400.2200, L400.2500, L400.5100, L404.6500 ####[facility] ([facility])[address] [place], [place] [phone] Nivar, MDSodium molar jocx117 mmol/LInvalid Interpretation Qxye465-242PdbzOhiohealth Grove City Methodist HospitalComment on above:Result Comment: Delta: 140 on 02/24/180403 Performed By: #### L400.0202, L400.0302, L400.2200, L400.2500, L400.5100, L404.6500 ####[facility] ([facility])[address] [place] [phone] Nivar, MDUrea nitrogen mass conc30 mg/dLHigh7-20[facility] HospitalComment on above:Performed By: #### L400.0202, L400.0302, L400.2200, L400.2500, L400.5100, L404.6500 ####[facility] ([facility])[address] [place], [place] [phone] Sandy, MDCBC with Differentialon 64-88-8580Nqd Baso Wuxja782 /cmmNormal0-200[facility] HospitalComment on above:Performed By: #### L400.0202, L400.0302, L400.2200, L400.2500, L400.5100, L404.6500 ####[facility] ([facility])[address], [place] [phone] Sandy, MDAbs Eos Cwqnj868 /cmmNormal0-500 [facility] HospitalComment on above:Performed By: #### L400.0202, L400.0302, L400.2200, L400.2500, L400.5100, L404.6500 ####[facility] ([facility])[address], [place] [phone] Sandy, MDAbs [place] Vthra287 /cmmHigh0-800Ohio[facility] HospitalComment on above:Performed By: #### L400.0202, L400.0302, L400.2200, L400.2500, L400.5100, L404.6500 ####[facility] ([facility])[address], [place] [phone] Sandy, MDAbs Neut Ktpzh7158 /hktVvcj2242-0761XcklOhiohealth Grove City Methodist HospitalComment on above:Performed By: #### L400.0202, L400.0302, L400.2200, L400.2500, L400.5100, L404.6500 ####[facility] ([facility])[address], [place] [phone] Sandy, MDBasophils Auto #/vol (Bld)0.4 %Normal0-2LKindred Hospital DaytonComment on above:Performed By: #### L400.0202, L400.0302, L400.2200, L400.2500, L400.5100, L404.6500 ####[facility] ([facility])[address], [place] [phone] Asndy, MDEOS-Auto Diff3.0 % Normal0-6[facility] HospitalComment on above:Performed By: #### L400.0202, L400.0302, L400.2200, L400.2500, L400.5100, L404.6500 ####[facility] ([facility])[address] [phone] Nivar, MDErythrocyte distribution width Auto Ratio (RBC)17.8 %High12.0-16.0[facility] HospitalComment on above:Performed By: #### L400.0202, L400.0302, L400.2200, L400.2500, L400.5100, L404.6500 ####Main Laboratory ([facility])[address] [place] [phone] Nivar, MDHematocrit Auto Volume Fraction (Bld)23.6 %Low40.0-49.0[facility] HospitalComment on above:Performed By: #### L400.0202, L400.0302, L400.2200, L400.2500, L400.5100, L404.6500 ####Main Laboratory ([facility])[address] [place] [phone] Nivar, MDHemoglobin mass conc (Bld)7.4 g/dLLow13.5-16.5 [facility] HospitalComment on above:Performed By: #### L400.0202, L400.0302, L400.2200, L400.2500, L400.5100, L404.6500 ####Main Laboratory ([facility])[address] [place], [place] [phone] Nivar, MD Lymphocytes Auto #/vol (Bld)3000 /[id number] Grove City Methodist Hospital Comment on above:Performed By: #### L400.0202, L400.0302, L400.2200, L400.2500, L400.5100, L404.6500 ####Main Laboratory ([facility])[address] [place], [place] [phone] Sandy, MDLymphocytes/100 WBC Auto (Bld)21.1 %Wgbovd52-52 [facility] HospitalComment on above:Performed By: #### L400.0202, L400.0302, L400.2200, L400.2500, L400.5100, L404.6500 ####Main Laboratory ([facility])[address], [place] [phone] Sandy, MDMCH Auto Entitic mass (RBC)29.1 zhJwshzg00.5-33.0[facility] HospitalComment on above:Performed By: #### L400.0202, L400.0302, L400.2200, L400.2500, L400.5100, L404.6500 ####Main Laboratory ([facility])[address] [place], [place] [phone] Sandy, MDMCHC Auto mass conc (RBC)31.3 g/dLLow33.0-36.0 [facility] HospitalComment on above:Performed By: #### L400.0202, L400.0302, L400.2200, L400.2500, L400.5100, L404.6500 ####Main Laboratory ([facility])[address] [place], [place] [phone] Sandy, MDMCV Auto Entitic volume (RBC)93.2 CU DVCDkjolh85-82XyezOhiohealth Grove City Methodist HospitalComment on above:Performed By: #### L400.0202, L400.0302, L400.2200, L400.2500, L400.5100, L404.6500 ####[facility] ([facility])[address], [place] [phone] Sandy, MDMono- Auto Diff6.6 %Normal2-10[facility] HospitalComment on above:Performed By: #### L400.0202, L400.0302, L400.2200, L400.2500, L400.5100, L404.6500 ####[facility] ([facility])[address], [place] [phone] Sandy, Neut-Auto Diff68.9 % Ciykxy30-60LmshOhiohealth Grove City Methodist HospitalComment on above:Performed By: #### L400.0202, L400.0302, L400.2200, L400.2500, L400.5100, L404.6500 ####[facility] ([facility])[address], [place] [phone] Sandy, MDNRBC-Auto0.1 /100 WBCNormal<1LKindred Hospital DaytonComment on above: Performed By: #### L400.0202, L400.0302, L400.2200, L400.2500, L400.5100, L404.6500 ####[facility] ([facility])[address], [place] [phone] Sandy, MDPlatelets Auto #/vol (Bld)304 th/cmmNormal 150-400Ohio[facility] City Methodist HospitalComment on above:Performed By: #### L400.0202, L400.0302, L400.2200, L400.2500, L400.5100, L404.6500 ####[facility] ([facility])[address], [place] [phone] Sandy, MDRBC Auto #/vol (Bld)2.53 mil/cmmLow4.50-6.00[facility] Methodist HospitalComment on above: Performed By: #### L400.0202, L400.0302, L400.2200, L400.2500, L400.5100, L404.6500 ####[facility] ([facility])[address], [place] [phone] Sandy, MDWBC Auto #/vol (Bld)14.1 th/cmmHigh4.4-10.5[facility] Methodist HospitalComment on above:Performed By: #### L400.0202, L400.0302, L400.2200, L400.2500, L400.5100, L404.6500 ####[facility] ([facility])[address] [phone] Nivar, MDFerritinon 15-16-9694Musstftd [Mass/volume] in Serum or Bdkqum2239 ng/cGFlhm22-469MoiyOhiohealth Grove City Methodist HospitalComment on above:Performed By: #### L400.0202, L400.0302, L400.2200, L400.2500, L400.5100, L404.6500 ####[facility] ([facility])[address] [place] [phone] Nivar, MDHepatic Function Panel (Liver)on 12-64-4529Rbboyqu mass conc3.2 g/dLLow3.5-5.0[facility] HospitalComment on above:Performed By: #### L400.0202, L400.0302, L400.2200, L400.2500, L400.5100, L404.6500 ####[facility] ([facility])[address] [place], [place] [phone] Nivar, MDAlk Mdxf268 IU/L Nompda94-690LdnyOhiohealth Grove City Methodist HospitalComment on above:Performed By: #### L400.0202, L400.0302, L400.2200, L400.2500, L400.5100, L404.6500 ####[facility] ([facility])[address] [place] [phone] Nivar, MDALT/SGPT32 IU/USjgdsu34-90HkicOhiohealth Grove City Methodist HospitalComment on above: Performed By: #### L400.0202, L400.0302, L400.2200, L400.2500, L400.5100, L404.6500 ####[facility] ([facility])[address], [place] [phone] Sandy, MDAST/SGOT33 IU/GBtaujo79-63ExjcOhiohealth Grove City Methodist HospitalComment on above:Performed By: #### L400.0202, L400.0302, L400.2200, L400.2500, L400.5100, L404.6500 ####[facility] ([facility])[address], [place] [phone] Sandy, MDBili, Total0.5 mg/dLNormal0.2-1.0 [facility] HospitalComment on above:Performed By: #### L400.0202, L400.0302, L400.2200, L400.2500, L400.5100, L404.6500 ####[facility] ([facility])[address], [place] [phone] Nivar, MD Bili,Direct0.1 mg/dLNormal0.1-0.2LKindred Hospital DaytonComment on above: Performed By: #### L400.0202, L400.0302, L400.2200, L400.2500, L400.5100, L404.6500 ####[facility] ([facility])[address], [place] [phone] Sandy, MDProtein mass conc7.8 g/dLNormal6.2-8.0[facility] HospitalComment on above:Performed By: #### L400.0202, L400.0302, L400.2200, L400.2500, L400.5100, L404.6500 ####[facility] ([facility])[address], [place] [phone] Nivar, MDIron Binding and Saturationon 84-52-9917Zpex, Serum59 mcg/aQWarejh31-080VusgOhiohealth Grove City Methodist HospitalComment on above:Performed By: #### L400.0202, L400.0302, L400.2200, L400.2500, L400.5100, L404.6500 ####[facility] ([facility])[address] [place], [place] [phone] Nivar, MDTransferrin mass rvpt353 mg/dLLow 180-329Ohio[facility] City Methodist HospitalComment on above:Performed By: #### L400.0202, L400.0302, L400.2200, L400.2500, L400.5100, L404.6500 ####[facility] ([facility])[address] [place] [phone] Nivar, MD% Iron Uxmscoitdu46 %Imhjek16-57VtpaOhiohealth Grove City Methodist HospitalComment on above:Performed By: #### L400.0202, L400.0302, L400.2200, L400.2500, L400.5100, L404.6500 ####[facility] ([facility])[address], [place] [phone] Nivar, MDMagnesiumon 92-91-9590Yhubobhhd mass conc1.6 mg/dLLow1.8-2.5[facility] HospitalComment on above:Performed By: #### L400.0202, L400.0302, L400.2200, L400.2500, L400.5100, L404.6500 ####[facility] ([facility])[address] [place], [place] [phone] Nivar, MDPhosphoruson 43-72-8433Gsmipoewi mass conc3.6 mg/dLNormal2.4-4.7Ohio[facility] HospitalComment on above:Performed By: #### L400.0202, L400.0302, L400.2200, L400.2500, L400.5100, L404.6500 ####[facility] ([facility])[address] [place], [place] [phone] Sandy, MDReticulocyte Counton 25-79-2327Ediwiqizyukw Count1.60 %Normal0.90-2.60[facility] Comment on above:Performed By: #### L400.0202, L400.0302, L400.2200, L400.2500, L400.5100, L404.6500 ####[facility] ([facility])[address], [place] [phone] Sandy, MDBasic Metabolic,Non-Fastingon 96-18-9963Ciilg gap 3 molar conc9 mmol/LNormal4-12[facility] HospitalComment on above: Performed By: #### L400.0202, L400.0302, L400.2200, L400.2500, L400.5100, L404.6500 ####[facility] ([facility])[address], [place] [phone] Sandy, MDCalcium mass conc8.1 mg/dLLow8.8-10.5[facility] HospitalComment on above:Performed By: #### L400.0202, L400.0302, L400.2200, L400.2500, L400.5100, L404.6500 ####[facility] ([facility])[address], [place] [phone] Sandy, MDChloride molar conc 110 mmol/WKrijvs032-193NdlrOhiohealth Grove City Methodist HospitalComment on above:Performed By: #### L400.0202, L400.0302, L400.2200, L400.2500, L400.5100, L404.6500 ####[facility] ([facility])[address], [place] [phone] Sandy, MDCO2 molar conc21 mmol/DLunjkp67-70KzrkOhiohealth Grove City Methodist HospitalComment on above: Performed By: #### L400.0202, L400.0302, L400.2200, L400.2500, L400.5100, L404.6500 ####[facility] ([facility])[address] [place], [place] [phone] Nivar, MDCreatinine mass conc1.42 mg/dLHigh0.70-1.30[facility] HospitalComment on above:Performed By: #### L400.0202, L400.0302, L400.2200, L400.2500, L400.5100, L404.6500 ####[facility] ([facility])[address] [place], [place] [phone] Nivar, MDGFR/1.73 sq M predicted among non-blacks MDRD vol rate/area (S/P/Bld)mL/min/{1.73_m2}Normal [facility] HospitalComment on above:Result Comment: Chronic Kidney Disease stages by NKDFStage eGFR I >90 II 60-89 III 30-59 IV 15-29 V <15 or dialysisAGE(years) AVERAGE GFR 50-59 93 ml/min/1.73 square metersNote:This result is normalized to 1.73 square meter body surface area. Height and weight are not factored.Performed By: #### L400.0202, L400.0302, L400.2200, L400.2500, L400.5100, L404.6500 ####[facility] ([facility])[address] [place], [place] [phone] Nivar, MDGlucose mass uibt234 mg/aWZlhl75-543XrtaOhiohealth Grove City Methodist HospitalComment on above: Performed By: #### L400.0202, L400.0302, L400.2200, L400.2500, L400.5100, L404.6500 ####[facility] ([facility])[address] [place], [place] [phone] Nivar, MDPotassium molar conc3.7 mmol/LNormal3.6-5.0[facility] HospitalComment on above:Performed By: #### L400.0202, L400.0302, L400.2200, L400.2500, L400.5100, L404.6500 ####[facility] ([facility])[address] [place] [phone] Nivar, MDSodium molar hgxw521 mmol/OVvqein327-534PiclOhiohealth Grove City Methodist HospitalComment on above:Performed By: #### L400.0202, L400.0302, L400.2200, L400.2500, L400.5100, L404.6500 ####[facility] ([facility])[address] [place] [phone] Nivar, MDUrea nitrogen mass conc32 mg/dLHigh7-20[facility] HospitalComment on above:Performed By: #### L400.0202, L400.0302, L400.2200, L400.2500, L400.5100, L404.6500 ####[facility] ([facility])[address] [place] [phone] Nivar, MDIonized Calciumon 72-09-6505Itggwjt Calcium1.16 mmol/LNormal1.15-1.29[facility] HospitalComment on above:Performed By: #### L400.0202, L400.0302, L400.2200, L400.2500, L400.5100, L404.6500 ####[facility] ([facility])[address] [place] [phone] Nivar, MDMagnesiumon 73-89-8601Izlrsvimm mass conc1.9 mg/dLNormal1.8-2.5[facility] HospitalComment on above:Performed By: #### L400.0202, L400.0302, L400.2200, L400.2500, L400.5100, L404.6500 ####[facility] ([facility])[address] [place] [phone] Sandy, MDPhosphoruson 75-60-6743Ptvmffwsm mass conc4.1 mg/dLNormal2.4-4.7[facility] Comment on above:Performed By: #### L400.0202, L400.0302, L400.2200, L400.2500, L400.5100, L404.6500 ####[facility] ([facility])[address] [place] [place] [phone] Sandy, MDBasic Metabolic,Non-Fastingon 31-81-1671Mkozv gap 3 molar conc10 mmol/LNormal4-12[facility] HospitalComment on above: Performed By: #### L400.0202, L400.0302, L400.2200, L400.2500, L400.5100, L404.6500 ####[facility] ([facility])[address] [phone] Sandy, MDCalcium mass conc8.0 mg/dLLow8.8-10.5[facility] HospitalComment on above:Performed By: #### L400.0202, L400.0302, L400.2200, L400.2500, L400.5100, L404.6500 ####[facility] ([facility])[address] [place], [place] [phone] Sandy, MDChloride molar conc 112 mmol/BDhej484-343OojeOhiohealth Grove City Methodist HospitalComment on above:Performed By: #### L400.0202, L400.0302, L400.2200, L400.2500, L400.5100, L404.6500 ####[facility] ([facility])[address] [place], [place] [phone] Sandy, MDCO2 molar conc19 mmol/XNgg21-08QoybOhiohealth Grove City Methodist HospitalComment on above: Performed By: #### L400.0202, L400.0302, L400.2200, L400.2500, L400.5100, L404.6500 ####[facility] ([facility])[address], [place] [phone] Sandy, MDCreatinine mass conc1.29 mg/dLNormal0.70-1.30 [facility] HospitalComment on above:Performed By: #### L400.0202, L400.0302, L400.2200, L400.2500, L400.5100, L404.6500 ####[facility] ([facility])[address] [place], [place] [phone] Sandy, MDGFR/1.73 sq M predicted among non-blacks MDRD vol rate/area (S/P/Bld)mL/min/{1.73_m2} NormalOhiohealth Grove City Methodist HospitalComment on above:Result Comment: Chronic Kidney Disease stages by NKDFStage eGFR I >90 II 60-89 III 30-59 IV 15-29 V <15 or dialysisAGE(years) AVERAGE GFR 50-59 93 ml/min/1.73 square metersNote:This result is normalized to 1.73 square meter body surface area. Height and weight are not factored.Performed By: #### L400.0202, L400.0302, L400.2200, L400.2500, L400.5100, L404.6500 ####[facility] ([facility])[address] [place] [phone] Sandy, MDGlucose mass conc97 mg/pUCliscn28-668JnstOhiohealth Grove City Methodist HospitalComment on above:Result Comment: *This reference range applies to fasting specimens only.Performed By: #### L400.0202, L400.0302, L400.2200, L400.2500, L400.5100, L404.6500 ####[facility] ([facility])[address], [place] [phone] Sandy, MDPotassium molar conc3.8 mmol/LNormal3.6-5.0[facility] HospitalComment on above:Performed By: #### L400.0202, L400.0302, L400.2200, L400.2500, L400.5100, L404.6500 ####[facility] ([facility])[address], [place] [phone] Sandy, MDSodium molar hmlm455 mmol/KVfgxmc122-361BeuvOhiohealth Grove City Methodist HospitalComment on above:Performed By: #### L400.0202, L400.0302, L400.2200, L400.2500, L400.5100, L404.6500 ####[facility] ([facility])[address], [place] [phone] Sandy, MDUrea nitrogen mass conc32 mg/dLHigh7-20[facility] HospitalComment on above:Performed By: #### L400.0202, L400.0302, L400.2200, L400.2500, L400.5100, L404.6500 ####[facility] ([facility])[address], [place] [phone] Sandy, MDMagnesiumon 59-21-8905Wmalynjvs mass conc1.6 mg/dLLow1.8-2.5[facility] HospitalComment on above:Performed By: #### L400.0202, L400.0302, L400.2200, L400.2500, L400.5100, L404.6500 ####[facility] ([facility])[address], [place] [phone] Sandy, MDPhosphoruson 49-45-7312Droixxizu mass conc4.0 mg/dLInvalid Interpretation Code2.4-4.7[facility] HospitalComment on above:Result Comment: Delta: 1.8 on 02/22/18-0402Performed By: #### L400.0202, L400.0302, L400.2200, L400.2500, L400.5100, L404.6500 ####[facility] ([facility])[address], [place] [phone] Sandy, MDBasic Metabolic,Non-Fastingon 38-41-8282Grotk gap 3 molar conc8 mmol/LNormal4-12[facility] HospitalComment on above: Performed By: #### L400.0202, L400.0302, L400.2200, L400.2500, L400.5100, L404.6500 ####[facility] ([facility])[address], [place] [phone] Sandy, MDCalcium mass conc8.1 mg/dLLow8.8-10.5[facility] HospitalComment on above:Performed By: #### L400.0202, L400.0302, L400.2200, L400.2500, L400.5100, L404.6500 ####[facility] ([facility])[address], [place] [phone] Sandy, MDChloride molar conc 114 mmol/UGjcr155-924WiqhOhiohealth Grove City Methodist HospitalComment on above:Performed By: #### L400.0202, L400.0302, L400.2200, L400.2500, L400.5100, L404.6500 ####[facility] ([facility])[address], [place] [phone] Sandy, MDCO2 molar conc20 mmol/KShn33-55SpjzOhiohealth Grove City Methodist HospitalComment on above: Performed By: #### L400.0202, L400.0302, L400.2200, L400.2500, L400.5100, L404.6500 ####[facility] ([facility])[address] [place] [phone] Nivar, MDCreatinine mass conc1.21 mg/dLNormal0.70-1.30 [facility] HospitalComment on above:Performed By: #### L400.0202, L400.0302, L400.2200, L400.2500, L400.5100, L404.6500 ####[facility] ([facility])[address] [phone] Nivar, MDGFR/1.73 sq M predicted among non-blacks MDRD vol rate/area (S/P/Bld)mL/min/{1.73_m2} NormalOhiohealth Grove City Methodist HospitalComment on above:Result Comment: Chronic Kidney Disease stages by NKDFStage eGFR I >90 II 60-89 III 30-59 IV 15-29 V <15 or dialysisAGE(years) AVERAGE GFR 50-59 93 ml/min/1.73 square metersNote:This result is normalized to 1.73 square meter body surface area. Height and weight are not factored.Performed By: #### L400.0202, L400.0302, L400.2200, L400.2500, L400.5100, L404.6500 ####[facility] ([facility])[address] [place] [phone] Nivar, MDGlucose mass bbft065 mg/eVRchnin55-268LxrfOhiohealth Grove City Methodist HospitalComment on above:Result Comment: *This reference range applies to fasting specimens only.Performed By: #### L400.0202, L400.0302, L400.2200, L400.2500, L400.5100, L404.6500 ####[facility] ([facility])[address], [place] [phone] Sandy, MDPotassium molar conc4.3 mmol/LNormal3.6-5.0[facility] HospitalComment on above:Performed By: #### L400.0202, L400.0302, L400.2200, L400.2500, L400.5100, L404.6500 ####[facility] ([facility])[address], [place] [phone] Sandy, MDSodium molar uarn180 mmol/VPpijcj895-246DdshOhiohealth Grove City Methodist HospitalComment on above:Performed By: #### L400.0202, L400.0302, L400.2200, L400.2500, L400.5100, L404.6500 ####[facility] ([facility])[address], [place] [phone] Sandy, MDUrea nitrogen mass conc35 mg/dLHigh7-20[facility] HospitalComment on above:Performed By: #### L400.0202, L400.0302, L400.2200, L400.2500, L400.5100, L404.6500 ####[facility] ([facility])[address] [place], [place] [phone] Sandy, MDCBC with Differentialon 41-39-2852Iuq Baso Yowud715 /cmmNormal0-200[facility] HospitalComment on above:Performed By: #### L400.0202, L400.0302, L400.2200, L400.2500, L400.5100, L404.6500 ####[facility] ([facility])[address], [place] [phone] Sandy, MDAbs Eos Ajxfh935 /cmmHigh0-500[facility] HospitalComment on above:Performed By: #### L400.0202, L400.0302, L400.2200, L400.2500, L400.5100, L404.6500 ####[facility] ([facility])[address], [place] [phone] Sandy, MDAbs [place] Lknau0444 /cmmHigh0-800[facility] HospitalComment on above: Performed By: #### L400.0202, L400.0302, L400.2200, L400.2500, L400.5100, L404.6500 ####[facility] ([facility])[address], [place] [phone] Sandy, MDAbs Neut Lirtw51690 /sbfJgzw7605-7679ChynOhiohealth Grove City Methodist HospitalComment on above:Performed By: #### L400.0202, L400.0302, L400.2200, L400.2500, L400.5100, L404.6500 ####[facility] ([facility])[address], [place] [phone] Nivar, MDBasophils Auto #/vol (Bld)0.5 %Normal0-2LKindred Hospital DaytonComment on above:Performed By: #### L400.0202, L400.0302, L400.2200, L400.2500, L400.5100, L404.6500 ####[facility] ([facility])[address], [place] [phone] Nivar, MDEOS-Auto Diff3.5 %Normal0-6[facility] HospitalComment on above: Performed By: #### L400.0202, L400.0302, L400.2200, L400.2500, L400.5100, L404.6500 ####[facility] ([facility])[address], [place] [phone] Nivar, MDErythrocyte distribution width Auto Ratio (RBC) 17.0 %High12.0-16.0[facility] HospitalComment on above:Performed By: #### L400.0202, L400.0302, L400.2200, L400.2500, L400.5100, L404.6500 ####[facility] ([facility])[address] [place], [place] [phone] Sandy, Hematocrit Auto Volume Fraction (Bld)27.2 %Low40.0-49.0[facility] HospitalComment on above:Performed By: #### L400.0202, L400.0302, L400.2200, L400.2500, L400.5100, L404.6500 ####[facility] ([facility])[address] [place], [place] [phone] Nivar, MDHemoglobin mass conc (Bld)8.2 g/dL Low13.5-16.5[facility] HospitalComment on above:Performed By: #### L400.0202, L400.0302, L400.2200, L400.2500, L400.5100, L404.6500 ####[facility] ([facility])[address] [place] [phone] Sandy, Lymphocytes Auto #/vol (Bld)3600 /xokQtaqkd8377-7972YongOhiohealth Grove City Methodist HospitalComment on above:Performed By: #### L400.0202, L400.0302, L400.2200, L400.2500, L400.5100, L404.6500 ####[facility] ([facility])[address] [place], [place] [phone] MD SandyLymphocytes/100 WBC Auto (Bld)17.6 %Tpueng85-02YpeeOhiohealth Grove City Methodist HospitalComment on above:Performed By: #### L400.0202, L400.0302, L400.2200, L400.2500, L400.5100, L404.6500 ####[facility] ([facility])[address], [place] [phone] Sandy, MDMCH Auto Entitic mass (RBC)28.4 cjWoxsvo82.5-33.0[facility] Comment on above:Performed By: #### L400.0202, L400.0302, L400.2200, L400.2500, L400.5100, L404.6500 ####[facility] ([facility])[address], [place] [phone] Sandy, MDMCHC Auto mass conc (RBC)30.3 g/dLLow33.0-36.0 [facility] HospitalComment on above:Performed By: #### L400.0202, L400.0302, L400.2200, L400.2500, L400.5100, L404.6500 ####Main Laboratory ([facility])[address], [place] [phone] Sadny, MDMCV Auto Entitic volume (RBC)93.9 CU BXBHxfufj55-51LkfnOhiohealth Grove City Methodist HospitalComment on above:Performed By: #### L400.0202, L400.0302, L400.2200, L400.2500, L400.5100, L404.6500 ####Main Laboratory ([facility])[address] [place], [place] [phone] Sandy, MDMono- Auto Diff4.9 %Normal2-10[facility] HospitalComment on above:Performed By: #### L400.0202, L400.0302, L400.2200, L400.2500, L400.5100, L404.6500 ####Main Laboratory ([facility])[address], [place] [phone] Sandy, MDNeut-Auto Diff73.5 % Eyii78-77ZrbcOhiohealth Grove City Methodist HospitalComment on above:Performed By: #### L400.0202, L400.0302, L400.2200, L400.2500, L400.5100, L404.6500 ####Main Laboratory ([facility])[address], [place] [phone] Sandy, MDNRBC-Auto0.1 /100 WBCNormal<1LKindred Hospital DaytonComment on above: Performed By: #### L400.0202, L400.0302, L400.2200, L400.2500, L400.5100, L404.6500 ####Main Laboratory ([facility])[address], [place] [phone] Sandy, MDPlatelets Auto #/vol (Bld)377 th/cmmNormal 150-400[facility] HospitalComment on above:Performed By: #### L400.0202, L400.0302, L400.2200, L400.2500, L400.5100, L404.6500 ####Main Laboratory ([facility])[address], [place] [phone] Sandy, MDRBC Auto #/vol (Bld)2.90 mil/cmmLow4.50-6.00[facility] HospitalComment on above: Performed By: #### L400.0202, L400.0302, L400.2200, L400.2500, L400.5100, L404.6500 ####Main Laboratory ([facility])[address], [place] [phone] Sandy, MDWBC Auto #/vol (Bld)20.5 th/cmmHigh4.4-10.5[facility] HospitalComment on above:Performed By: #### L400.0202, L400.0302, L400.2200, L400.2500, L400.5100, L404.6500 ####Main Laboratory ([facility])[address], [place] [phone] Sandy, MIAHlostridium difficile by PCRon 92-21-2862Fgyvlbudhtu difficile by PCRNegativeNormalNegative [facility] [facility] Methodist HospitalComment on above:Result Comment: Methodology: Nucleic Acid Amplification (Polymerase Chain Reaction,PCR)Positive C. Diffs should not be retested for 7 days.No testing on formed stools.For questions, please contact Microbiology lab at [phone].Performance characteristics of this assay have not beenevaluated in patients under 18 years of age. Significanceof positive results in children younger than 1 year isquestionable since they may be asymptomatically colonized.Performed By: #### L400.0202, L400.0302, L400.2200, L400.2500, L400.5100, L404.6500 ####Main Laboratory ([facility])[address] [place], [place] [phone] Nivar, MDHepatic Function Panel (Liver)on 87-88-1843Fsrywmn mass conc3.1 g/dLLow3.5-5.0[facility] HospitalComment on above:Performed By: #### L400.0202, L400.0302, L400.2200, L400.2500, L400.5100, L404.6500 ####Main Laboratory ([facility])[address] [place], [place] [phone] Nivar, MDAlk Vbri870 IU/CGdav19-659OiuvOhiohealth Grove City Methodist HospitalComment on above:Performed By: #### L400.0202, L400.0302, L400.2200, L400.2500, L400.5100, L404.6500 ####Main Laboratory ([facility])[address] [place], [place] [phone] Nivar, MDALT/SGPT31 IU/FBcyjwu37-58PyqgOhiohealth Grove City Methodist HospitalComment on above:Performed By: #### L400.0202, L400.0302, L400.2200, L400.2500, L400.5100, L404.6500 ####Main Laboratory ([facility])[address], [place] [phone] Sandy, MDAST/SGOT32 IU/L Cpizld11-29BfjzOhiohealth Grove City Methodist HospitalComment on above:Performed By: #### L400.0202, L400.0302, L400.2200, L400.2500, L400.5100, L404.6500 ####Main Laboratory ([facility])[address], [place] [phone] Sandy, MDBili,Direct0.1 mg/dLNormal0.1-0.2LKindred Hospital DaytonComment on above: Performed By: #### L400.0202, L400.0302, L400.2200, L400.2500, L400.5100, L404.6500 ####Main Laboratory ([facility])[address], [place] [phone] Sandy, MDBili,Total0.4 mg/dLNormal0.2-1.0[facility] HospitalComment on above:Performed By: #### L400.0202, L400.0302, L400.2200, L400.2500, L400.5100, L404.6500 ####Main [facility] ([facility])[address], [place] [phone] Sandy, MDProtein mass conc7.6 g/dLNormal6.2-8.0[facility] HospitalComment on above:Performed By: #### L400.0202, L400.0302, L400.2200, L400.2500, L400.5100, L404.6500 ####[facility] ([facility])[address], [place] [phone] Sandy, MDMagnesiumon 75-77-4814Luncwgfbh mass conc1.6 mg/dLLow1.8-2.5[facility] HospitalComment on above:Performed By: #### L400.0202, L400.0302, L400.2200, L400.2500, L400.5100, L404.6500 ####Main [facility] ([facility])[address] [place] [phone] Sandy, MDPhosphoruson 56-77-0572Dawzjyclt mass conc1.8 mg/dLLow2.4-4.7[facility] Comment on above:Performed By: #### L400.0202, L400.0302, L400.2200, L400.2500, L400.5100, L404.6500 ####[facility] ([facility])[address] [phone] Sandy, MDPrealbuminon 11-10-0804Uxpysqwbye mass conc11.7 mg/dLLow16.0-38.0[facility] HospitalComment on above:Performed By: #### L400.0202, L400.0302, L400.2200, L400.2500, L400.5100, L404.6500 ####[facility] ([facility])[address] [place] [phone] MD SandyTriglycerideson 95-51-6736Gvxbwopufaao mass fjnt231 mg/dLHigh<150[facility] HospitalComment on above:Performed By: #### L400.0202, L400.0302, L400.2200, L400.2500, L400.5100, L404.6500 ####[facility] ([facility])[address] [place], [place] [phone] Nivar, MDBasic Metabolic,Non-Fastingon 28-17-8657Xfkht gap 3 molar conc9 mmol/LNormal4-12[facility] HospitalComment on above:Performed By: #### L400.0202, L400.0302, L400.2200, L400.2500, L400.5100, L404.6500 ####Main [facility] ([facility])[address], [place] [phone] Sandy, MDCalcium mass conc7.6 mg/dLLow8.8-10.5[facility] HospitalComment on above:Performed By: #### L400.0202, L400.0302, L400.2200, L400.2500, L400.5100, L404.6500 ####[facility] ([facility])[address], [place] [phone] Sandy, MDChloride molar rsmc778 mmol/JNalh920-118QxvqOhiohealth Grove City Methodist HospitalComment on above:Performed By: #### L400.0202, L400.0302, L400.2200, L400.2500, L400.5100, L404.6500 ####[facility] ([facility])[address], [place] [phone] Sandy, MDCO2 molar conc20 mmol/HPfm95-17TmwiOhiohealth Grove City Methodist HospitalComment on above:Performed By: #### L400.0202, L400.0302, L400.2200, L400.2500, L400.5100, L404.6500 ####[facility] ([facility])[address], [place] [phone] Sandy, MDCreatinine mass conc 1.48 mg/dLHigh0.70-1.30[facility] HospitalComment on above:Performed By: #### L400.0202, L400.0302, L400.2200, L400.2500, L400.5100, L404.6500 ####[facility] ([facility])[address], [place] [phone] Sandy, MDGFR/1.73 sq M predicted among non-blacks MDRD vol rate/area (S/P/Bld)59 mL/min/{1.73_m2}LowOhiohealth Grove City Methodist HospitalComment on above:Result Comment: Chronic Kidney Disease stages by NKDFStage eGFR I >90 II 60-89 III 30-59 IV 15-29 V <15 or dialysisAGE(years) AVERAGE GFR 50-59 93 ml/min/1.73 square metersNote:This result is normalized to 1.73 square meter body surface area. Height and weight are not factored.Performed By: #### L400.0202, L400.0302, L400.2200, L400.2500, L400.5100, L404.6500 ####Main [facility] ([facility])[address], [place] [phone] Sandy, MDGlucose mass fmvb247 mg/hNQcec17-871BpdhOhiohealth Grove City Methodist HospitalComment on above:Performed By: #### L400.0202, L400.0302, L400.2200, L400.2500, L400.5100, L404.6500 ####[facility] ([facility])[address], [place] [phone] Sandy, MDPotassium molar conc3.6 mmol/LNormal3.6-5.0[facility] HospitalComment on above:Performed By: #### L400.0202, L400.0302, L400.2200, L400.2500, L400.5100, L404.6500 ####[facility] ([facility])[address], [place] [phone] Sandy, MDSodium molar tuln777 mmol/GHrhdll525-255AohiOhiohealth Grove City Methodist HospitalComment on above:Performed By: #### L400.0202, L400.0302, L400.2200, L400.2500, L400.5100, L404.6500 ####[facility] ([facility])[address], [place] [phone] Sandy, MDUrea nitrogen mass conc39 mg/dLHigh7-20[facility] HospitalComment on above:Performed By: #### L400.0202, L400.0302, L400.2200, L400.2500, L400.5100, L404.6500 ####[facility] ([facility])[address] [place], [place] [phone] Nivar, MDBasic Metabolic,Non-Fastingon 15-53-7216Qdavf gap 3 molar conc7 mmol/LNormal4-12[facility] HospitalComment on above: Performed By: #### L400.0202, L400.0302, L400.2200, L400.2500, L400.5100, L404.6500 ####[facility] ([facility])[address] [place], [place] [phone] Sandy, MDCalcium mass conc7.6 mg/dLLow8.8-10.5[facility] HospitalComment on above:Performed By: #### L400.0202, L400.0302, L400.2200, L400.2500, L400.5100, L404.6500 ####[facility] ([facility])[address], [place] [phone] Sandy, MDChloride molar conc 118 mmol/OZjom047-592IpvfOhiohealth Grove City Methodist HospitalComment on above:Performed By: #### L400.0202, L400.0302, L400.2200, L400.2500, L400.5100, L404.6500 ####[facility] ([facility])[address] [place], [place] [phone] Sandy, MDCO2 molar conc20 mmol/IPkp36-65RwxbOhiohealth Grove City Methodist HospitalComment on above: Performed By: #### L400.0202, L400.0302, L400.2200, L400.2500, L400.5100, L404.6500 ####[facility] ([facility])[address] [place] [phone] Nivar, MDCreatinine mass conc1.54 mg/dLHigh0.70-1.30[facility] HospitalComment on above:Performed By: #### L400.0202, L400.0302, L400.2200, L400.2500, L400.5100, L404.6500 ####Main [facility] ([facility])[address] [place], [place] [phone] Nivar, MDGFR/1.73 sq M predicted among non-blacks MDRD vol rate/area (S/P/Bld)57 mL/min/{1.73_m2}Low [facility] HospitalComment on above:Result Comment: Chronic Kidney Disease stages by NKDFStage eGFR I >90 II 60-89 III 30-59 IV 15-29 V <15 or dialysisAGE(years) AVERAGE GFR 50-59 93 ml/min/1.73 square metersNote:This result is normalized to 1.73 square meter body surface area. Height and weight are not factored.Performed By: #### L400.0202, L400.0302, L400.2200, L400.2500, L400.5100, L404.6500 ####[facility] ([facility])[address] [place] [phone] Nivar, MDGlucose mass slbh829 mg/uYCbpy83-674FzumOhiohealth Grove City Methodist HospitalComment on above: Performed By: #### L400.0202, L400.0302, L400.2200, L400.2500, L400.5100, L404.6500 ####[facility] ([facility])[address] [place] [phone] Nivar, MDPotassium molar conc3.4 mmol/LLow3.6-5.0[facility] HospitalComment on above:Performed By: #### L400.0202, L400.0302, L400.2200, L400.2500, L400.5100, L404.6500 ####[facility] ([facility])[address] [place] [phone] Sandy, MDSodium molar vajs012 mmol/YFbjjru079-094WmxdOhiohealth Grove City Methodist HospitalComment on above:Result Comment: Delta: 150 on 02/19/18-0414Performed By: #### L400.0202, L400.0302, L400.2200, L400.2500, L400.5100, L404.6500 ####[facility] ([facility])[address] [place] [phone] Sandy, MDUrea nitrogen mass conc48 mg/dL High7-20[facility] HospitalComment on above:Performed By: #### L400.0202, L400.0302, L400.2200, L400.2500, L400.5100, L404.6500 ####[facility] ([facility])[address] [place] [phone] Sandy, MDBasic Metabolic,Non-Fastingon 97-47-2890Pukmm gap 3 molar conc11 mmol/LNormal 4-12[facility] HospitalComment on above:Performed By: #### L400.0202, L400.0302, L400.2200, L400.2500, L400.5100, L404.6500 ####[facility] ([facility])[address] [place] [phone] Sandy, MDCalcium mass conc8.4 mg/dLLow8.8-10.5[facility] HospitalComment on above: Performed By: #### L400.0202, L400.0302, L400.2200, L400.2500, L400.5100, L404.6500 ####[facility] ([facility])[address] [place] [phone] Sandy, MDChloride molar dehl396 mmol/TLcum838-525TdsqOhiohealth Grove City Methodist HospitalComment on above:Performed By: #### L400.0202, L400.0302, L400.2200, L400.2500, L400.5100, L404.6500 ####[facility] ([facility])[address] [place] [phone] Sandy, MDCO2 molar conc20 mmol/HRde44-21MmdjOhiohealth Grove City Methodist HospitalComment on above:Performed By: #### L400.0202, L400.0302, L400.2200, L400.2500, L400.5100, L404.6500 ####[facility] ([facility])[address] [place] [phone] Sandy, MDCreatinine mass conc1.85 mg/dLHigh0.70-1.30[facility] HospitalComment on above:Performed By: #### L400.0202, L400.0302, L400.2200, L400.2500, L400.5100, L404.6500 ####[facility] ([facility])[address] [place] [phone] Sandy, MDGFR/1.73 sq M predicted among non-blacks MDRD vol rate/area (S/P/Bld)46 mL/min/{1.73_m2}[facility]Commun[facility] on above:Result Comment: Chronic Kidney Disease stages by NKDFStage eGFR I >90 II 60-89 III 30-59 IV 15-29 V <15 or dialysisAGE(years) AVERAGE GFR 50-59 93 ml/min/1.73 square metersNote:This result is normalized to 1.73 square meter body surface area. Height and weight are not factored.Performed By: #### L400.0202, L400.0302, L400.2200, L400.2500, L400.5100, L404.6500 ####[facility] ([facility])[address] [place] [phone] Nivar, MDGlucose mass conc89 mg/zOPlxssr34-012FtyoOhiohealth Grove City Methodist HospitalComment on above:Result Comment: *This reference range applies to fasting specimens only.Performed By: #### L400.0202, L400.0302, L400.2200, L400.2500, L400.5100, L404.6500 ####[facility] ([facility])[address] [place] [phone] Sandy, MDPotassium molar conc 4.1 mmol/LNormal3.6-5.0[facility] HospitalComment on above:Performed By: #### L400.0202, L400.0302, L400.2200, L400.2500, L400.5100, L404.6500 ####[facility] ([facility])[address] [place] [phone] Nivar, MDSodium molar mmqs368 mmol/ZDwsz263-569PnfpOhiohealth Grove City Methodist HospitalComment on above:Result Comment: Delta: 145 on 02/18/18-0908Performed By: #### L400.0202, L400.0302, L400.2200, L400.2500, L400.5100, L404.6500 ####[facility] ([facility])[address] [place] [phone] Nivar, MDUrea nitrogen mass conc70 mg/dLHigh7-20[facility] HospitalComment on above: Performed By: #### L400.0202, L400.0302, L400.2200, L400.2500, L400.5100, L404.6500 ####[facility] ([facility])[address] [place], [place] [phone] Sandy, MDCult,Bloodon 57-08-1452Gfjx,BloodSpecimen Description .BLOOD Special Requests R FOREARM 6ML Culture NO GROWTH 6 DAYS Report Status FINAL 02/19/2018[facility] CampusComment on above:Performed By: #### ERTPF, CONNER, LIP, LIVP, TEGCR ####[facility] [address] [place] [address] Cult,BloodSpecimen Description .BLOOD Special Requests RT HAND 1ML Culture NO GROWTH 6 DAYS Report Status FINAL 02/19/2018[facility] CampusComment on above:Performed By: #### ERTPF, CONNER, LIP, LIVP, TEGCR ####[facility] [address] [place], [place] 1074908 XR CHEST PORTABLEon 16-64-1306AY CHEST PORTABLEPROCEDURE: XR CHEST PORTABLECLINICAL INFORMATION: picc line placement, [...] by Dr. Herminio Cardenas on 02/19/2018 1:24 PMInterpr eted by:NADEGE Ellisigned by:Herminio Cardenas MD02/19/inal resultNormal [facility] Medical CenterBasic Metabolic,Non-Fastingon 84-07-7775Tunov gap 3 molar conc9 mmol/LNormal4-12[facility] HospitalComment on above: Performed By: #### L400.0202, L400.0302, L400.2200, L400.2500, L400.5100, L404.6500 ####[facility] ([facility])[address], [place] [phone] Sandy, MDCalcium mass conc8.3 mg/dLLow8.8-10.5[facility] HospitalComment on above:Performed By: #### L400.0202, L400.0302, L400.2200, L400.2500, L400.5100, L404.6500 ####[facility] ([facility])[address] [place] [phone] Sandy, MDChloride molar conc 113 mmol/HWfgr978-954ZsqwOhiohealth Grove City Methodist HospitalComment on above:Performed By: #### L400.0202, L400.0302, L400.2200, L400.2500, L400.5100, L404.6500 ####[facility] ([facility])[address] [place] [phone] Sandy, MDCO2 molar conc23 mmol/OOlakcc91-65VdohOhiohealth Grove City Methodist HospitalComment on above: Performed By: #### L400.0202, L400.0302, L400.2200, L400.2500, L400.5100, L404.6500 ####[facility] ([facility])[address] [place] [phone] Sandy, MDCreatinine mass conc1.90 mg/dLHigh0.70-1.30[facility] HospitalComment on above:Performed By: #### L400.0202, L400.0302, L400.2200, L400.2500, L400.5100, L404.6500 ####[facility] ([facility])[address] [place] [phone] Sandy, MDGFR/1.73 sq M predicted among non-blacks MDRD vol rate/area (S/P/Bld)45 mL/min/{1.73_m2}Low [facility] HospitalComment on above:Result Comment: Chronic Kidney Disease stages by NKDFStage eGFR I >90 II 60-89 III 30-59 IV 15-29 V <15 or dialysisAGE(years) AVERAGE GFR 50-59 93 ml/min/1.73 square metersNote:This result is normalized to 1.73 square meter body surface area. Height and weight are not factored.Performed By: #### L400.0202, L400.0302, L400.2200, L400.2500, L400.5100, L404.6500 ####[facility] ([facility])[address] [phone] Nivar, MDGlucose mass qzax195 mg/hMVpqt97-156SudvOhiohealth Grove City Methodist HospitalComment on above: Performed By: #### L400.0202, L400.0302, L400.2200, L400.2500, L400.5100, L404.6500 ####[facility] ([facility])[address], [place] [phone] Sandy MDPotassium molar conc3.6 mmol/LNormal3.6-5.0[facility] HospitalComment on above:Performed By: #### L400.0202, L400.0302, L400.2200, L400.2500, L400.5100, L404.6500 ####[facility] ([facility])[address] [phone] Nivar, MDSodium molar tvtw796 mmol/LInvalid Interpretation Ykzd920-726YcorOhiohealth Grove City Methodist HospitalComment on above:Result Comment: Delta: 139 on 02/17/18-0403Performed By: #### L400.0202, L400.0302, L400.2200, L400.2500, L400.5100, L404.6500 ####[facility] ([facility])[address], [place] [phone] Nivar, MDUrea nitrogen mass conc80 mg/dLHigh7-20[facility] HospitalComment on above: Performed By: #### L400.0202, L400.0302, L400.2200, L400.2500, L400.5100, L404.6500 ####[facility] ([facility])[address], [place] [phone] Nivar, MDHepatic Function Panel (Liver)on 02-18-2018 Albumin mass conc3.0 g/dLLow3.5-5.0[facility] HospitalComment on above: Performed By: #### L400.0202, L400.0302, L400.2200, L400.2500, L400.5100, L404.6500 ####[facility] ([facility])[address], [place] [phone] Sandy, MDAlk Ciys497 IU/BNvvk76-522BheuOhiohealth Grove City Methodist HospitalCommunising memorial hospital on above:Performed By: #### L400.0202, L400.0302, L400.2200, L400.2500, L400.5100, L404.6500 ####[facility] ([facility])[address], [place] [phone] Sandy, MDALT/SGPT52 IU/ZHkzs87-80EgrbOhiohealth Grove City Methodist HospitalComment on above:Performed By: #### L400.0202, L400.0302, L400.2200, L400.2500, L400.5100, L404.6500 ####[facility] ([facility])[address], [place] [phone] Sandy, MDAST/SGOT39 IU/L Insvhw62-23RziwOhiohealth Grove City Methodist HospitalComment on above:Performed By: #### L400.0202, L400.0302, L400.2200, L400.2500, L400.5100, L404.6500 ####[facility] ([facility])[address], [place] [phone] Nivar, MDBili,Direct0.3 mg/dLHigh0.1-0.2LKindred Hospital DaytonComment on above: Performed By: #### L400.0202, L400.0302, L400.2200, L400.2500, L400.5100, L404.6500 ####[facility] ([facility])[address], [place] [phone] Nivar, MDBili,Total0.3 mg/dLNormal0.2-1.0[facility] HospitalComment on above:Result Comment: Delta: 1.3 on 02/16/18 Performed By: #### L400.0202, L400.0302, L400.2200, L400.2500, L400.5100, L404.6500 ####[facility] ([facility])[address], [place] [phone] Sandy, MDProtein mass conc7.9 g/dLNormal6.2-8.0[facility] HospitalComment on above:Performed By: #### L400.0202, L400.0302, L400.2200, L400.2500, L400.5100, L404.6500 ####[facility] ([facility])[address] [place] [phone] Nivar, MDIonized Calciumon 98-06-0327Veanmgp Calcium1.24 mmol/LNormal1.15-1.29[facility] Comment on above:Performed By: #### L400.0202, L400.0302, L400.2200, L400.2500, L400.5100, L404.6500 ####[facility] ([facility])[address], [place] [phone] Sandy, MDMagnesiumon 75-59-4193Aljlmwnjh mass conc2.0 mg/dLNormal1.8-2.5[facility] HospitalComment on above:Performed By: #### L400.0202, L400.0302, L400.2200, L400.2500, L400.5100, L404.6500 ####[facility] ([facility])[address] [phone] Nivar, [facility] 54-71-6632Brpeeffdu mass conc2.9 mg/dLNormal2.4-4.7[facility] HospitalComment on above:Performed By: #### L400.0202, L400.0302, L400.2200, L400.2500, L400.5100, L404.6500 ####[facility] ([facility])[address], [place] [phone] Nivar, [facility] Hospitalum culture/ smearon 58-64-1190UPR Coag RelTime (Bld)Gram stain result Moderate Segmented WBC's seen Rare Gram positive bacilli Rare Gram positive cocciin pairs and chains Rare Gram positive cocci in clusters ORGANISM 1: Klebsiella pneumoniaeAmount ofgrowth ManyComments Normal pharyngeal chet also isolated Klebsiella pneumoniae: REACTION Amoxacillin/K Clavulanate >16/8 R Ampicillin/Sulbactam >16/8 R Cefazolin >16 R Cefepime <=4 S Cefotaxime <=2 S Ceftazidime 4 S Ceftriaxone <=8 S Cefuroxime >16 R Ciprofloxacin <=1 S Ertapenem <=2 S Gentamicin <=4 S Imipenem <=1 S Meropenem <=1 S Levofloxacin <=2 S Piperc illin/Tazobactam <=16 S Tetracycline <=4 S Ticarcillin/K Clavulanate >64 R Trimethoprim/Sulfamethoxazole <=2/38 SNormalOhiohealth Grove City Methodist HospitalComment on above:Performed By: #### L400.0202, L400.0302, L400.2200, L400.2500, L400.5100, L404.6500 ####[facility] ([facility])[address], [place] [phone] Sandy, MDBasic Metabolic,Non-Fastingon 19-88-0991Scck nitrogen mass dcur138 mg/dLHigh7-20[facility] HospitalComment on above: Performed By: #### L400.0152, L400.2200, L400.5100 ####Main Laboratory ([facility])[address], [place] [phone] Sandy, MDAnion gap 3 molar conc12 mmol/LNormal4-12[facility] HospitalComment on above: Performed By: #### L400.0152, L400.2200, L400.5100 ####Main Laboratory ([facility])[address], [place] [phone] Sandy, MDCalcium mass conc7.9 mg/dLLow8.8-10.5[facility] HospitalComment on above: Performed By: #### L400.0152, L400.2200, L400.5100 ####Main Laboratory ([facility])[address], [place] [phone] Sandy, MDChloride molar xrlw943 mmol/PCnubla095-667SfukOhiohealth Grove City Methodist HospitalComment on above: Performed By: #### L400.0152, L400.2200, L400.5100 ####Main Laboratory ([facility])[address], [place] [phone] Sandy, MDCO2 molar conc22 mmol/QVctuhb26-23OhecOhiohealth Grove City Methodist HospitalComment on above:Performed By: #### L400.0152, L400.2200, L400.5100 ####Main Laboratory ([facility])[address], [place] [phone] Sandy, MDCreatinine mass conc 2.19 mg/dLHigh0.70-1.30[facility] HospitalComment on above:Performed By: #### L400.0152, L400.2200, L400.5100 ####Main Laboratory ([facility])[address] [place] [phone] Nivar, MDGFR/1.73 sq M predicted among non-blacks MDRD vol rate/area (S/P/Bld)38 mL/min/{1.73_m2}Low [facility] HospitalComment on above:Result Comment: Chronic Kidney Disease stages by NKDFStage eGFR I >90 II 60-89 III 30-59 IV 15-29 V <15 or dialysisAGE(years) AVERAGE GFR 50-59 93 ml/min/1.73 square metersNote:This result is normalized to 1.73 square meter body surface area. Height and weight are not factored.Performed By: #### L400.0152, L400.2200, L400.5100 ####[facility] ([facility])[address] [place] [phone] Nivar, MDGlucose mass ohzr753 mg/vSNsfs84-950JnzkOhiohealth Grove City Methodist HospitalComment on above:Performed By: #### L400.0152, L400.2200, L400.5100 ####[facility] ([facility])[address] [place] [phone] Sandy, MDPotassium molar conc3.2 mmol/LLow3.6-5.0Ohio[facility] City Methodist HospitalComment on above:Performed By: #### L400.0152, L400.2200, L400.5100 ####[facility] ([facility])[address] [place] [phone] Sandy, MDSodium molar xtax940 mmol/BYeigie933-535KttcOhiohealth Grove City Methodist HospitalComment on above:Performed By: #### L400.0152, L400.2200, L400.5100 ####[facility] ([facility])[address] [place] [phone] Sandy, MDCult,Bloodon 35-64-9305Vydy,BloodSpecimen Description .BLOOD Special Requests LAC 0.02 ML Culture NO GROWTH 6 DAYS Report Status FINAL 02/17/2018[facility] CampusComment on above:Performed By: #### ERTPF, CONNER, LIP, LIVP, TEGCR ####[facility] [address] [place] [address] Cult,BloodSpecimen Description .BLOOD Special Requests RAC 0.01 ML Culture NO GROWTH 6 DAYS Report Status FINAL 02/17/2018[facility] CampusComment on above:Performed By: #### ERTPF, CONNER, LIP, LIVP, TEGCR ####[facility] [address] [place] [address] MRSA screen, nasalon 77-96-0385VWNQ screen, nasalNo growth of MRSA.NormalOhiohealth Grove City Methodist HospitalComment on above:Performed By: #### L400.0202, L400.0302, L400.2200, L400.2500, L400.5100, L404.6500 ####[facility] ([facility])[address] [place], [place] [phone] Sandy, MDMagnesiumon 48-60-9781Urspghxvx mass conc2.1 mg/dLNormal1.8-2.5Ohio[facility] City Methodist HospitalComment on above:Performed By: #### L400.0152, L400.2200, L400.5100 ####[facility] ([facility])[address], [place] [phone] Sandy, MDPhosphoruson 93-92-6442Tccvhmaly mass conc3.6 mg/dLNormal2.4-4.7Ohio[facility] Grove City Methodist HospitalComment on above: Performed By: #### L400.0152, L400.2200, L400.5100 ####[facility] ([facility])[address], [place] [phone] Sandy, MDVRE screen, fecon 38-23-9925XKS screen, fecNo growth of Vancomycin Resistant Enterococcus (VRE).NormalOhiohealth Grove City Methodist HospitalComment on above:Performed By: #### L400.0202, L400.0302, L400.2200, L400.2500, L400.5100, L404.6500 ####[facility] ([facility])[address], [place] [phone] Sandy, MDBasic Metabolic Panel,Fastingon 02-87-2726Cjom nitrogen mass wawh286 mg/dLHigh7-20[facility] HospitalComment on above: Performed By: #### L400.0202, L400.0302, L400.2200, L400.2500, L400.5100, L404.6500 ####[facility] ([facility])[address], [place] [phone] Sandy, MDAnion gap 3 molar conc14 mmol/LHigh4-12Ohio[facility] Methodist HospitalComment on above:Performed By: #### L400.0202, L400.0302, L400.2200, L400.2500, L400.5100, L404.6500 ####[facility] ([facility])[address], [place] [phone] Sandy, MDCalcium mass conc8.7 mg/dLLow8.8-10.5Ohio[facility] City Methodist HospitalComment on above:Performed By: #### L400.0202, L400.0302, L400.2200, L400.2500, L400.5100, L404.6500 ####[facility] ([facility])[address], [place] [phone] Sandy, MDChloride molar lrxf990 mmol/NJimucq212-039TjwfOhiohealth Grove City Methodist HospitalComment on above:Performed By: #### L400.0202, L400.0302, L400.2200, L400.2500, L400.5100, L404.6500 ####[facility] ([facility])[address] [place], [place] [phone] Sandy, MDCO2 molar conc26 mmol/UGjcvqb65-26RjbhOhiohealth Grove City Methodist HospitalComment on above:Performed By: #### L400.0202, L400.0302, L400.2200, L400.2500, L400.5100, L404.6500 ####[facility] ([facility])[address] [place], [place] [phone] Sandy, MDCreatinine mass conc 2.40 mg/dLHigh0.70-1.30[facility] HospitalCommunising memorial hospital on above:Performed By: #### L400.0202, L400.0302, L400.2200, L400.2500, L400.5100, L404.6500 ####[facility] ([facility])[address] [place], [place] [phone] Sandy, MDGFR/1.73 sq M predicted among non-blacks MDRD vol rate/area (S/P/Bld)28 mL/min/{1.73_m2}[facility] HospitalComment on above:Result Comment: Chronic Kidney Disease stages by NKDFStage eGFR I >90 II 60-89 III 30-59 IV 15-29 V <15 or dialysisAGE(years) AVERAGE GFR 50-59 93 ml/min/1.73 square metersNote:This result is normalized to 1.73 square meter body surface area. Height and weight are not factored.Performed By: #### L400.0202, L400.0302, L400.2200, L400.2500, L400.5100, L404.6500 ####[facility] ([facility])[address], [place] [phone] Sandy, MDGlucose mass uvcj241 mg/bXIlzp35-215EbhvOhiohealth Grove City Methodist HospitalComment on above:Performed By: #### L400.0202, L400.0302, L400.2200, L400.2500, L400.5100, L404.6500 ####[facility] ([facility])[address], [place] [phone] Sandy, MDPotassium molar conc3.4 mmol/LLow3.6-5.0[facility] Methodist HospitalComment on above:Performed By: #### L400.0202, L400.0302, L400.2200, L400.2500, L400.5100, L404.6500 ####[facility] ([facility])[address], [place] [phone] Sandy, MDSodium molar hsio543 mmol/WEtfmqt957-059HluaOhiohealth Grove City Methodist HospitalComment on above:Performed By: #### L400.0202, L400.0302, L400.2200, L400.2500, L400.5100, L404.6500 ####[facility] ([facility])[address], [place] [phone] Sandy, MDCBC with Differentialon 39-18-4540Fyi Baso Jdegk416 /cmmNormal0-200Ohio[facility] City Methodist HospitalComment on above:Performed By: #### L100.0000 ####[facility] ([facility])[address], [place] [phone] Sandy, MDAbs Eos Mviga120 /cmmNormal0-500Ohio[facility] City Methodist HospitalComment on above: Performed By: #### L100.0000 ####[facility] ([facility])[address], [place] [phone] Sandy, MDAbs [place] Zqqwj3366 /cmmHigh0-800 [place] Memorial Health SystemComment on above:Performed By: #### L100.0000 ####[facility] ([facility])[address], [place] [phone] Sandy, FREEDOMbs Neut Rmllz70344 /ottDhtm4683-3349McxkOhiohealth Grove City Methodist HospitalComment on above:Performed By: #### L100.0000 ####[facility] ([facility])[address], [place] [phone] Nivar, MDBasophils Auto #/vol (Bld)0.4 %Normal0-2LKindred Hospital DaytonComment on above: Performed By: #### L100.0000 ####[facility] ([facility])[address], [place] [phone] MD SandyEOS-Auto Diff0.6 %Normal0-6Ohio[facility] HospitalComment on above:Performed By: #### L100.0000 ####[facility] ([facility])[address], [place] [phone] Nivar, MDErythrocyte distribution width Auto Ratio (RBC)16.9 %High12.0-16.0[facility] HospitalComment on above:Performed By: #### L100.0000 ####[facility] ([facility])[address], [place] [phone] Nivar, MDHematocrit Auto Volume Fraction (Bld)26.1 %Low40.0-49.0[facility] HospitalComment on above:Performed By: #### L100.0000 ####[facility] ([facility])[address], [place] [phone] Nivar, MD Hemoglobin mass conc (Bld)8.3 g/dLLow13.5-16.5Ohio[facility] HospitalComment on above:Performed By: #### L100.0000 ####[facility] ([facility])[address], [place] [phone] Sandy, MDLymphocytes Auto #/vol (Bld)2000 /yamJwyvec0075-8257RqnlOhiohealth Grove City Methodist HospitalComment on above: Performed By: #### L100.0000 ####[facility] ([facility])[address], [place] [phone] Sandy, MDLymphocytes/100 WBC Auto (Bld)7.0 %Ltk35-59KzhlOhiohealth Grove City Methodist HospitalComment on above:Performed By: #### L100.0000 ####[facility] ([facility])[address], [place] [phone] Sandy, MDMCH Auto Entitic mass (RBC)29.1 pgNormal 27.5-33.0[facility] HospitalComment on above:Performed By: #### L100.0000 ####[facility] ([facility])[address], [place] [phone] Sandy, MDMCHC Auto mass conc (RBC)31.8 g/dLLow33.0-36.0 [facility] HospitalComment on above:Performed By: #### L100.0000 ####[facility] ([facility])[address], [place] [phone] Sandy, MDMCV Auto Entitic volume (RBC)91.5 CU XGKTtkayx70-38QtniOhiohealth Grove City Methodist HospitalComment on above:Performed By: #### L100.0000 ####[facility] ([facility])[address], [place] [phone] Sandy, MDMono- Auto Diff5.7 %Normal2-10[facility] HospitalComment on above: Performed By: #### L100.0000 ####[facility] ([facility])[address], [place] [phone] Nivar, MDNeut-Auto Diff86.3 %Awhh75-20RjieOhiohealth Grove City Methodist HospitalComment on above:Performed By: #### L100.0000 ####[facility] ([facility])[address], [place] [phone] Sandy, MDNRBC-Auto0.1 /100 WBCNormal<1LKindred Hospital DaytonComment on above: Performed By: #### L100.0000 ####[facility] ([facility])[address], [place] [phone] Sanyd MDPlatelets Auto #/vol (Bld)516 th/jzoAcdk541-328TcjwOhiohealth Grove City Methodist HospitalComment on above:Performed By: #### L100.0000 ####[facility] ([facility])[address], [place] [phone] Nivar, MDRBC Auto #/vol (Bld)2.85 mil/cmmLow4.50-6.00 [facility] HospitalComment on above:Performed By: #### L100.0000 ####[facility] ([facility])[address], [place] [phone] Delgado MDWBC Auto #/vol (Bld)29.1 th/cmmHigh4.4-10.5[facility] HospitalComment on above:Performed By: #### L100.0000 ####[facility] ([facility])[address], [place] [phone] Nivar, MDHepatic Function Panel (Liver)on 92-28-0394Veozogp mass conc3.1 g/dLLow3.5-5.0[facility] HospitalComment on above:Performed By: #### L400.0202, L400.0302, L400.2200, L400.2500, L400.5100, L404.6500 ####[facility] ([facility])[address], [place] [phone] Sandy, MDAlk Zggq438 IU/LHigh 41-137Ohio[facility] City Methodist HospitalComment on above:Performed By: #### L400.0202, L400.0302, L400.2200, L400.2500, L400.5100, L404.6500 ####[facility] ([facility])[address], [place] [phone] Sandy, MDALT/SGPT 80 IU/DQoow89-73ZujgOhiohealth Grove City Methodist HospitalComment on above:Performed By: #### L400.0202, L400.0302, L400.2200, L400.2500, L400.5100, L404.6500 ####[facility] ([facility])[address], [place] [phone] Sandy, MDAST/SGOT43 IU/HLbst90-56YjiiOhiohealth Grove City Methodist HospitalComment on above:Performed By: #### L400.0202, L400.0302, L400.2200, L400.2500, L400.5100, L404.6500 ####[facility] ([facility])[address], [place] [phone] Sandy, MDBili,Direct0.6 mg/dLHigh0.1-0.2LKindred Hospital DaytonComment on above:Performed By: #### L400.0202, L400.0302, L400.2200, L400.2500, L400.5100, L404.6500 ####[facility] ([facility])[address], [place] [phone] Sandy, MDBili,Total1.3 mg/dL High0.2-1.0[facility] HospitalComment on above:Performed By: #### L400.0202, L400.0302, L400.2200, L400.2500, L400.5100, L404.6500 ####[facility] ([facility])[address], [place] [phone] Sandy, MDProtein mass conc8.2 g/dLHigh6.2-8.0[facility] HospitalComment on above:Performed By: #### L400.0202, L400.0302, L400.2200, L400.2500, L400.5100, L404.6500 ####[facility] ([facility])[address], [place] [phone] Sandy, MDMagnesiumon 44-09-7974Jzekwtjio mass conc2.3 mg/dLNormal1.8-2.5[facility] HospitalComment on above:Performed By: #### L400.0202, L400.0302, L400.2200, L400.2500, L400.5100, L404.6500 ####[facility] ([facility])[address], [place] [phone] Sandy, MDPhosphoruson 26-57-4527Ivxjebxpc mass conc3.8 mg/dLNormal2.4-4.7[facility] HospitalComment on above:Performed By: #### L400.0202, L400.0302, L400.2200, L400.2500, L400.5100, L404.6500 ####[facility] ([facility])[address], [place] [phone] Sandy, MDPrealbuminon 23-50-8850Ocyfppqxef mass conc11.4 mg/dLLow16.0-38.0[facility] Comment on above:Performed By: #### L400.0202, L400.0302, L400.2200, L400.2500, L400.5100, L404.6500 ####[facility] ([facility])[address], [place] [phone] Sandy, MDTriglycerideson 66-03-5327Vjicnlhfgwix mass tedv310 mg/dLNormal<150[facility] HospitalComment on above:Performed By: #### L400.0202, L400.0302, L400.2200, L400.2500, L400.5100, L404.6500 ####[facility] ([facility])[address] [facility] HospitalmagalyCollins, [place] [phone] Nivar, MDXR ABDOMEN G TUBE PLACEMENTon 63-95-4101PX ABDOMEN G TUBE PLACEMENTPROCEDURE: XR ABDOMEN G TUBE PLACEMENTCLINICAL INFORMATION: ng [...] 02/16/2018 3:03 PMInterpreted by:NADEGE Groveigned by:Elizabeth Barone MD02/16/18Final resultNormalSBaylor Scott & White Medical Center – Lake PointeBasi Metabolic Profon 54-93-8180Bixs nitrogen mass llty970 mg/dLCritically high6-20[facility] Comment on above:Result Comment: Previous Alert Value ReportedPerformed By: #### ERTPF, CONNER, LIP, LIVP, TEGCR ####[address] [place] [address] (cont.)NormalWooster Community HospitalComment on above: Result Comment: Average GFR for 50-59 years old: 93 mL/min/1.73sq mChronic Kidney Disease: <60 mL/min/1.73sq mKidney failure: <15 mL/min/1.73sq meGFR calculated using average adult body mass. Additional eGFR calculator available at:http://www.WePow.com/multiple_crcl_2012.htmPerformed By: #### ERTPF, CONNER, LIP, LIVP, TEGCR ####[address] [place] 43[address] Anion gap 3 molar conc19 mmol/LHigh9-17[facility] HospitalComment on above:Performed By: #### ERTPF, CONNER, LIP, LIVP, TEGCR ####[facility] [address] [place] [address] Calcium mass conc8.9 mg/dLNormal8.6-10.4[facility] HospitalComment on above:Performed By: #### ERTPF, CONNER, LIP, LIVP, TEGCR ####[address] [address] Chloride molar conc98 mmol/JMymwbq11-701HogqaWooster Community HospitalComment on above:Performed By: #### ERTPF, CONNER, LIP, LIVP, TEGCR ####[address] [place] [address] CO2 molar conc24 mmol/AJdpqpm89-67MccwgWooster Community HospitalComment on above:Performed By: #### ERTPF, CONNER, LIP, LIVP, TEGCR ####[facility] [address] [place] [address] Creatinine mass conc2.51 mg/dLHigh 0.70-1.20[facility] HospitalComment on above:Performed By: #### ERTPF, CONNER, LIP, LIVP, TEGCR ####[facility] [address] [place] [address] GFR, Amer32 mL/minLow>60MerAvalon Municipal HospitalComment on above:Performed By: #### ERTPF, CONNER, LIP, LIVP, TEGCR ####[facility] [address] [place] [address] GFR,non Amer27 mL/minLow>60[facility] HospitalComment on above:Performed By: #### ERTPF, CONNER, LIP, LIVP, TEGCR ####[address] [place] [address] Glucose mass ecfd581 mg/lULqhj79-48ChjwcKindred HospitalComment on above:Performed By: #### ERTPF, CONNER, LIP, LIVP, TEGCR ####[place] [address] Potassium molar conc3.3 mmol/LLow3.7-5.3MSonoma Developmental CenterComment on above:Performed By: #### ERTPF, CONNER, LIP, LIVP, TEGCR ####[place] [address] Sodium molar dtdl033 mmol/KVdzusd272-345UtoluWooster Community HospitalComment on above:Performed By: #### ERTPF, CONNER, LIP, LIVP, TEGCR ####[address] [place] [address] BUN/CRE Ratio NOT REPORTEDNormal9-20[facility] HospitalComment on above:Performed By: #### ERTPF, CONNER, LIP, LIVP, TEGCR ####[address] [place], [place] [phone]:NOT REPORTEDNormalWooster Community HospitalComment on above:Performed By: #### ERTPF, CONNER, LIP, LIVP, TEGCR ####[place], [place] [phone] 41-99-3672Xxukgjjhkbi distribution width Auto Ratio (RBC)16.5 %High11.8-14.4 [facility] HospitalComment on above:Performed By: #### ERTPF, CONNER, LIP, LIVP, TEGCR ####[facility] [address] [place] [address] Hematocrit Auto Volume Fraction (Bld)27.4 %Low40.7-50.3MSonoma Developmental CenterComment on above:Performed By: #### ERTPF, CONNER, LIP, LIVP, TEGCR ####[address] [address] Hemoglobin mass conc (Bld)8.6 g/dLLow13.0-17.0[facility] Comment on above:Performed By: #### ERTPF, CONNER, LIP, LIVP, TEGCR ####[address] [address] MCH Auto Entitic mass (RBC)29.1 dtRvndsz04.2-33.5[facility] HospitalComment on above: Performed By: #### ERTPF, CONNER, LIP, LIVP, TEGCR ####[address] [address] MCHC Auto mass conc (RBC)31.4 g/dLNormal 28.4-34.8[facility] HospitalComment on above:Performed By: #### ERTPF, CONNER, LIP, LIVP, TEGCR ####[facility] [address] [place] [address] MCV Auto Entitic volume (RBC)92.6 bDVtglmy18.6-102.9[facility] HospitalComment on above:Performed By: #### ERTPF, CONNER, LIP, LIVP, TEGCR ####[address] [address] NRBC Automated0.1 per 100 WBCHigh0.0[facility] HospitalComment on above: Performed By: #### ERTPF, CONNER, LIP, LIVP, TEGCR ####[address] [place] [address] [phone] mean volume Auto Entitic volume (Bld)12.4 fLNormal8.1-13.5[facility] HospitalComment on above: Performed By: #### ERTPF, CONNER, LIP, LIVP, TEGCR ####[place] [address] Platelets Auto #/vol (Bld)533 10*3/uLHigh 138-453[facility] HospitalComment on above:Performed By: #### ERTPF, CONNER, LIP, LIVP, TEGCR ####[address] [place], [place] [phone] Auto #/vol (Bld)2.96 10*6/uLLow4.21-5.77[facility] HospitalComment on above:Performed By: #### ERTPF, CONNER, LIP, LIVP, TEGCR ####[place], [place] [phone] Auto #/vol (Bld)28.7 10*3/uLHigh3.5-11.3[facility] Hospital Of GardenaComment on above: Performed By: #### ERTPF, CONNER, LIP, LIVP, TEGCR ####[place], [place] [phone] 71-14-3122Ckstauvrk mass conc 2.4 mg/dLNormal1.6-2.6[facility] Of GardenaComment on above:Performed By: #### ERTPF, CONNER, LIP, LIVP, TEGCR ####[address] [phone], Inorg.on 17-10-8356Jbwoqccovk, Inorg.4.3 mg/dLNormal2.5-4.5Mer[facility]ado Medical CenterComment on above: Performed By: #### ERTPF, CONNER, LIP, LIVP, TEGCR ####[address] [place] [address] Basic Metabolic Profon 77-62-3385Utiz nitrogen mass qzdl819 mg/dLCritically high6-20[facility] Comment on above:Performed By: #### ERTPF, CONNER, LIP, LIVP, TEGCR ####[address] [place] [address] (cont.)NormalWooster Community HospitalComment on above:Result Comment: Average GFR for 50-59 years old: 93 mL/min/1.73sq mChronic Kidney Disease: <60 mL/min/1.73sq mKidney failure: <15 mL/min/1.73sq meGFR calculated using average adult body mass. Ad vargastional eGFR calculator available at:http://www.Blushr/multiple_crcl_2012.htmPerformed By: #### ERTPF, CONNER, LIP, LIVP, TEGCR ####[address] [place] 43[address] Anion gap 3 molar conc20 mmol/LHigh9-17[facility] HospitalComment on above:Performed By: #### ERTPF, CONNER, LIP, LIVP, TEGCR ####[address] [place] [address] Calcium mass conc9.0 mg/dLNormal8.6-10.4[facility] HospitalComment on above:Performed By: #### ERTPF, CONNER, LIP, LIVP, TEGCR ####[address] [place] [address] Chloride molar conc93 mmol/GZij32-787BvsujWooster Community HospitalComment on above:Performed By: #### ERTPF, CONNER, LIP, LIVP, TEGCR ####[facility] [address] [place] [address] BL4 molar conc24 mmol/PPdawkm13-60JurkdWooster Community HospitalComment on above: Performed By: #### ERTPF, CONNER, LIP, LIVP, TEGCR ####[facility] [address] [place] [address] Creatinine mass conc2.97 mg/dLHigh 0.70-1.20[facility] HospitalComment on above:Performed By: #### ERTPF, CONNER, LIP, LIVP, TEGCR ####[facility] [address] [place] [address] GFR, Amer27 mL/minLow>60[facility] HospitalComment on above:Performed By: #### ERTPF, CONNER, LIP, LIVP, TEGCR ####[facility] [address] [place] [address] GFR,non Amer22 mL/minLow>60[facility] HospitalComment on above:Performed By: #### ERTPF, CONNER, LIP, LIVP, TEGCR ####[facility] [address] [place] [address] Glucose mass xmhw902 mg/wXRxix01-18Dnfbm [facility] Hospital Of GardenaComment on above:Performed By: #### ERTPF, CONNER, LIP, LIVP, TEGCR ####[facility] [address] [place] [phone] Potassium molar conc3.7 mmol/LNormal3.7-5.3[facility] GardenaComment on above:Performed By: #### ERTPF, CONNER, LIP, LIVP, TEGCR ####[facility] [address] [place] [address] Sodium molar fsoy746 mmol/WDewnlo772-217BbppaAvalon Municipal HospitalComment on above:Performed By: #### ERTPF, CONNER, LIP, LIVP, TEGCR ####[address] [address] BUN/CRE RatioNOT REPORTEDNormal9-20[facility] HospitalComment on above:Performed By: #### ERTPF, CONNER, LIP, LIVP, TEGCR ####[address] [phone]:NOT REPORTEDNormalWooster Community HospitalComment on above:Performed By: #### ERTPF, CONNER, LIP, LIVP, TEGCR ####[address] [address] CBCon [id number] distribution width Auto Ratio (RBC)16.2 %High11.8-14.4 [facility] HospitalComment on above:Performed By: #### ERTPF, CONNER, LIP, LIVP, TEGCR ####[address] 4360 Hematocrit Auto Volume Fraction (Bld)34.2 %Low40.7-50.3MSonoma Developmental CenterComment on above:Performed By: #### ERTPF, CONNER, LIP, LIVP, TEGCR ####[address] [address] [address] Hemoglobin mass conc (Bld)11.2 g/dLLow13.0-17.0[facility] Comment on above:Performed By: #### ERTPF, CONNER, LIP, LIVP, TEGCR ####[address] [phone] Auto Entitic mass (RBC)29.2 mqRjlouh51.2-33.5[facility] HospitalComment on above: Performed By: #### ERTPF, CONNER, LIP, LIVP, TEGCR ####[facility] [address] [place], [place] 89124419)[phone] Auto mass conc (RBC)32.7 g/dLNormal 28.4-34.8[facility] HospitalComment on above:Performed By: #### ERTPF, CONNER, LIP, LIVP, TEGCR ####[place], [place] [phone] Auto Entitic volume (RBC)89.3 rGGhmxmn57.6-102.9[facility] HospitalComment on above:Performed By: #### ERTPF, CONNER, LIP, LIVP, TEGCR ####[place] [address] NRBC Automated0.3 per 100 WBCHigh0.0[facility] HospitalComment on above: Performed By: #### ERTPF, CONNER, LIP, LIVP, TEGCR ####[place] [address] Platelet mean volume Auto Entitic volume (Bld)11.4 fLNormal8.1-13.5[facility] HospitalComment on above: Performed By: #### ERTPF, CONNER, LIP, LIVP, TEGCR ####[place] [address] Platelets Auto #/vol (Bld)145 10*3/uL Ksvlcz946-566GlcvpWooster Community HospitalComment on above:Performed By: #### ERTPF, CONNER, LIP, LIVP, TEGCR ####[place] [address] RBC Auto #/vol (Bld)3.83 10*6/uLLow4.21-5.77[facility] HospitalComment on above:Performed By: #### ERTPF, CONNER, LIP, LIVP, TEGCR ####[address] [place] [address] WBC Auto #/vol (Bld)19.5 10*3/uLHigh3.5-11.3[facility] Hospital Of GardenaComment on above: Performed By: #### ERTPF, CONNER, LIP, LIVP, TEGCR ####[address] [place] [address] US RETROPERITONEAL LIMITEDon [id number] RETROPERITONEAL LIMITEDEXAMINATION:RETROPERITONEAL ULTRASOUND OF THE KIDNEYS AND URINARY DVWLATT0602/14/2018COMPARISON:02/13/2018 CTHISTORY:ORDERING SYSTEM PROVIDED HISTORY: RENAL FAILURE, ACUTE (KIDNEY INJURY)FINDINGS:Kidneys:The right kidney measures 11.3 cm in length and the left kidney measures 12.2cm in length.Mild right renal pelviectasis, better seen on recent CT. No perinephriccollection bilaterally.Bladder:Not imagedIMPRESSION: Mild right renal pelviectasis. Please refer to CT performed 1 day prior.Interpretedby:NADEGE Hoodigned by:Jonathan Jones MD02/14/18inal resultNormalMercy Memorial Hospital Of GardenaXR CHEST PORTABLEon [id number] CHEST PORTABLEEXAMINATION:SINGLE XRAY VIEW OF THE CHEST02/14/2018 8:22 amCOMPARISON:Chest x-ray from 02/12/2018HISTORY:ORDERING SYSTEM PROVIDED HISTORY: ventTECHNOLOGIST PROVIDED HISTORY:ventFINDINGS:Tracheostomy identified. Enteric tube extends to the stomach. Gastrostomyidentified. The surgical clips project over the right upper quadrant of theabdomen.There is hyperexpansion of the lungs, flattening of the hemidiaphragms, andrelative paucity of lung markings in the bilateral upper lobes. There areimprovingdensities in lung bases with minimal residual. There is slightblunting of the left costophrenic angle. There is no focal airspaceconsolidation, right pleural effusion or pneumothorax. The cardiomedias tinalsilhouette appears within normal limits, given technique and there is nopulmonary vascular congestion. Visualized osseous structures appear intact,and grossly unremarkable, given the non dedicated imaging.IMPRESSION: 1. Expected positions of medical support devices.2. Improving bibasilar atelectatic changes.3. Small left pleural effusion.Interpreted by:Cassie Guzmán MDSigned by:Vanna Guzmán MD02/14/18Final resultNormalWooster Community HospitalBasic Metabolic Profon 27-33-5321Doku nitrogen mass dqjj239 mg/dL Critically high6-20[facility] HospitalComment on above:Performed By: #### ERTPF, CONNER, LIP, LIVP, TEGCR ####[facility] [address] [place] [address] (cont.)NormalW[facility] Hospital Comment on above:Result Comment: Average GFR for 50-59 years old: 93 mL/min/1.73sq mChronic Kidney Disease: <60 mL/min/1.73sq mKidney failure: <15 mL/min/1.73sq meGFR calculated using average adult body mass. Additional eGFR calculator available at:http://www.Blushr/multiple_crcl_2012.htmPerformed By: #### ERTPF, CONNER, LIP, LIVP, TEGCR ####[facility] [address] [place], [place] [phone] gap 3 molar conc16 mmol/LNormal9-17[facility] HospitalComment on above:Performed By: #### ERTPF, CONNER, LIP, LIVP, TEGCR ####[facility] [address] [place] [address] Calcium mass conc8.7 mg/dLNormal8.6-10.4[facility] HospitalComment on above:Performed By: #### ERTPF, CONNER, LIP, LIVP, TEGCR ####[facility] [address] [place], [place] [phone] molar conc98 mmol/LCqniow69-337SszqqWooster Community HospitalComment on above:Performed By: #### ERTPF, CONNER, LIP, LIVP, TEGCR ####[facility] [address] [place] [address] IG5 molar conc20 mmol/QZscjbk38-53QetluAvalon Municipal HospitalComment on above:Performed By: #### ERTPF, CONNER, LIP, LIVP, TEGCR ####[facility] [address] [place] [address] Creatinine mass conc3.44 mg/dLHigh0.70-1.20[facility] Of GardenaComment on above:Performed By: #### ERTPF, CONNER, LIP, LIVP, TEGCR ####[address] [address] GFR, Amer22 mL/minLow>60MerAvalon Municipal HospitalComment on above:Performed By: #### ERTPF, CONNER, LIP, LIVP, TEGCR ####[address] [address] GFR,non Amer19 mL/minLow>60MerAvalon Municipal HospitalComment on above:Performed By: #### ERTPF, CONNER, LIP, LIVP, TEGCR ####[address] [address] Glucose mass ozrd307 mg/tTZhem00-56Hchrj [facility] Of GardenaComment on above:Performed By: #### ERTPF, CONNER, LIP, LIVP, TEGCR ####[facility] Fhtuwhlqf[address] [place] [address] Potassium molar conc4.5 mmol/LNormal3.7-5.3[facility] Comment on above:Performed By: #### ERTPF, CONNER, LIP, LIVP, TEGCR ####[facility] Vadbshxlqz[address] [place] [address] Sodium molar hhge286 mmol/KMah292-808FefdwAvalon Municipal HospitalComment on above:Performed By: #### ERTPF, CONNER, LIP, LIVP, TEGCR ####[facility] [address]lqekaefuj[address] [place], [place] [phone]/CRE RatioNOT REPORTEDNormal9-20[facility] HospitalComment on above:Performed By: #### ERTPF, CONNER, LIP, LIVP, TEGCR ####Sarith[facility] [address] [place], [place] [phone]:NOT REPORTEDNormalWooster Community HospitalComment on above:Performed By: #### ERTPF, CONNER, LIP, LIVP, TEGCR ####Sarithay [address] [place], [place] [phone] Natri. Peptideon 26-87-7601Fjybimczaac peptide B mass conc (Bld)769 pg/mLHigh<300MerAvalon Municipal HospitalComment on above: Result Comment: Pro-BNP results cannot be compared to BNP results.Performed By: #### ERTPF, CONNER, LIP, LIVP, TEGCR ####[facility] [address] [place], [place] [phone] peptide B mass conc (Bld)NormalMerAvalon Municipal HospitalComment on above:Result Comment: Pro-BNP Reference Range:Rule Out: <300Grey Zone: Age <50 300-450 Age 50-75 300-900 Age >75 300- 1800Usually represents mild to moderate HF but other cardiopulmonary causes evelyne ot be ruled out.Rule In: Age <50 >450 Age 50-75 >900 Age >75 >1800Performed By: #### ERTPF, CONNER, LIP, LIVP, TEGCR ####Egener[facility] [address] [place], [place] [phone] 97-80-6160Yeztbeaxund distribution width Auto Ratio (RBC)16.5 %High11.8-14.4[facility] HospitalComment on above: Performed By: #### ERTPF, CONNER, LIP, LIVP, TEGCR ####[facility] [address]at[address] [place] [address] Hematocrit Auto Volume Fraction (Bld)24.7 %Low40.7-50.3[facility] Of GardenaComment on above:Performed By: #### ERTPF, CONNER, LIP, LIVP, TEGCR ####Filomena [address] [place] [address] Hemoglobin mass conc (Bld)8.1 g/dLLow13.0-17.0[facility] HospitalComment on above:Performed By: #### ERTPF, CONNER, LIP, LIVP, TEGCR ####[facility] [address] [place] [address] MCH Auto Entitic mass (RBC)29.7 ojOmtghe92.2-33.5[facility] Comment on above:Performed By: #### ERTPF, CONNER, LIP, LIVP, TEGCR ####Saritha [address] [place] [address] MCHC Auto mass conc (RBC)32.8 g/pQZjrumf70.4-34.8[facility] HospitalComment on above: Performed By: #### ERTPF, CONNER, LIP, LIVP, TEGCR ####Sarith[address] [address] MCV Auto Entitic volume (RBC)90.5 fL Kwlfnu85.6-102.9[facility] HospitalComment on above:Performed By: #### ERTPF, CONNER, LIP, LIVP, TEGCR ####[address] [address] NRBC Automated0.3 per 100 WBCHigh0.0[facility] HospitalComment on above:Performed By: #### ERTPF, CONNER, LIP, LIVP, TEGCR ####[facility] [address] [place] [address] Platelet mean volume Auto Entitic volume (Bld)11.9 fLNormal8.1-13.5[facility] HospitalComment on above:Performed By: #### ERTPF, CONNER, LIP, LIVP, TEGCR ####Fil[address] [place] [address] Platelets Auto #/vol (Bld)490 10*3/vVBfkx230-889ZbtakWooster Community HospitalComment on above: Performed By: #### ERTPF, CONNER, LIP, LIVP, TEGCR ####Filomen[facility] [address] [place], [place] [phone] Auto #/vol (Bld)2.73 10*6/uLLow 4.21-5.77[facility] HospitalComment on above:Performed By: #### ERTPF, CONNER, LIP, LIVP, TEGCR ####Filomena [address] [place] [address] WBC Auto #/vol (Bld)25.7 10*3/uLHigh3.5-11.3MSonoma Developmental CenterComment on above:Performed By: #### ERTPF, CONNER, LIP, LIVP, TEGCR ####[facility] [address] [phone] ABDOMEN PELVIS WO CONTRASTon [id number] ABDOMEN PELVIS WO CONTRASTEXAMINATION:CT OF THE ABDOMEN AND PELVIS WITHOUT CONTRAST 02/13/2018 11:04 amTECHNIQUE:CT of the abdomen and pelvis was performed without the administration ofintravenous contrast. Multiplanar reformatted images are provided for review.Dose modulation, iterative reconstruction, and/or weight based adjustment ofthe mA/kV was utilized to reduce the radiation dose to as low as reasonablyachievable.CO MPARISON:01/29/2018HISTORY:ORDERING SYSTEM PROVIDED HISTORY: abd distensionTECHNOLOGIST PROVIDED HISTORY:FINDINGS:Cardiovascular: UnremarkableLower Chest: Right basilar consolidationOrgansLiver: Unrem arkableGallbladder: CholecystectomyBiliary: UnremarkablePancreas: UnremarkableSpleen: SplenectomyAdrenals: UnremarkableKidneys: Right-sided hydronephrosis. No obstructive lithiasis.PelvisBladder: Partially distended.Reproductive: Unremarkable.GI/ Bowel: Status small-bowel loops measure up to 5 cm. Transition pointidentified distally, in the area of surgical suture placement status postterminal ileum resection. Unremarkable appendix. Stomach and proximal smallbowel appear unremarkable.Peritoneum/ Retroperitoneum: No adenopathy, free air or free fluidBones/ Soft Tissues: Laparotomy scar noted al gian the ventral abdomen. Noabnormal fluid or gas collections. There is compression deformity at xtbN2vscdhwxhd body.IMPRESSION: 1. Fluid-filled dilated small bowel loops are identified, with transitionpoint near the area of terminal ileum resection in the right lower quadrantseries 2, image 67.2. Right- sided hydronephrosis. No obstructive lithiasis.3. Status post splenectomy. No abnormality around the incision site.4. No free fluid in the abdomen or pelvis is appreciated.5. L1 vertebral body compression, present dating back to at least 01/19/2018Interpreted by:NADEGE Vidaligned by:MD Allie02/13/18Final resultNormalW[facility] HospitalXR ABDOMEN (KUB) (SINGLE AP VIEW)on [id number] ABDOMEN (KUB) (SINGLE AP VIEW)EXAMINATION:SINGLE SUPINE XRAY VIEW(S) OF THE NGAWEWK1902/13/2018 7:15 amHISTORY:ORDERING SYSTEM PROVIDED HISTORY: abd painTECHNOLOGIST PROVIDED HISTORY:abd painFINDINGS:Air-filled, mildly dilated loops of small and large bowel are identified.Catheter projects over the right lower hemiabdomen. Peg tube in place.Osseous structures grossly intact.IMPRESSION: The appearance of ileus in the gastrointestinal tract has not significantlychanged compared to 02/10/2018Interpreted by:NADEGE Vidaligned by:Anjel Hernandez MD02/13/18Final resultNormMagruder Memorial Hospital Basic Metabolic Profon 02-12-2018(cont.)[facility] Comment on above:Result Comment: Average GFR for 50-59 years old: 93 mL/min/1.73sq mChronic Kidney Disease: <60 mL/min/1.73sq mKidney failure: <15 mL/min/1.73sq meGFR calculated using average adult body mass. Additional eGFR calculator available at:http://www.WePow.Fanergies/multiple_crcl_2012.htmPerformed By: #### ERTPF, CONNER, LIP, LIVP, TEGCR ####[facility] [address] [place] [address] Anion gap 3 molar conc16 mmol/LNormal9-17[facility] HospitalComment on above:Performed By: #### ERTPF, CONNER, LIP, LIVP, TEGCR ####[facility] [address] [place] [address] Calcium mass conc8.9 mg/dLNormal8.6-10.4[facility] HospitalComment on above:Performed By: #### ERTPF, CONNER, LIP, LIVP, TEGCR ####[facility] [address] [place] [address] Chloride molar conc96 mmol/WFaz88-909IlicaWooster Community HospitalComment on above:Performed By: #### ERTPF, CONNER, LIP, LIVP, TEGCR ####[facility] [address]yhvlb[address] [place] [address] SJ7 molar conc19 mmol/BIew60-06KfeskWooster Community HospitalComment on above:Performed By: #### ERTPF, CONNER, LIP, LIVP, TEGCR ####[facility] [address]qcdpxslb[address] [place] [address] Creatinine mass conc 3.22 mg/dLHigh0.70-1.20[facility] HospitalComment on above: Performed By: #### ERTPF, CONNER, LIP, LIVP, TEGCR ####[facility] [address] [place] [address] GFR, Amer24 mL/minLow>60[facility] HospitalComment on above:Performed By: #### ERTPF, CONNER, LIP, LIVP, TEGCR ####[facility] [address] [place] [address] GFR,non Amer20 mL/minLow>60[facility] Of GardenaComment on above: Performed By: #### ERTPF, CONNER, LIP, LIVP, TEGCR ####[facility] [address]br[address] [place] [address] Glucose mass mert070 mg/uHDdrh85-62Qlgji [facility] Of GardenaComment on above:Performed By: #### ERTPF, CONNER, LIP, LIVP, TEGCR ####[facility] [address]ttbfuwhfuz[address] [place] [address] Potassium molar conc4.1 mmol/LNormal3.7-5.3[facility] Comment on above:Performed By: #### ERTPF, CONNER, LIP, LIVP, TEGCR ####[facility] [address]es[address]wcdyqav[address] [place] [address] Sodium molar czzs616 mmol/SHwg372-609BnreeAvalon Municipal HospitalComment on above:Performed By: #### ERTPF, CONNER, LIP, LIVP, TEGCR ####[facility] [address]jyk[address] [place] [address] Urea nitrogen mass conc89 mg/dLHigh6-20[facility] HospitalComment on above:Performed By: #### ERTPF, CONNER, LIP, LIVP, TEGCR ####[facility] [address] [place] [address] BUN/CRE Ratio NOT REPORTEDNormal9-20[facility] HospitalComment on above:Performed By: #### ERTPF, CONNER, LIP, LIVP, TEGCR ####[facility] [address]oz[address]xlzsrxg[address] [place] [address] Staging:NOT REPORTEDNormalMerAvalon Municipal HospitalComment on above:Performed By: #### ERTPF, CONNER, LIP, LIVP, TEGCR ####[facility] [address] [place] [address] Brain Natri. Peptideon 79-13-1135Xtugahiqqpd peptide B mass conc (Bld)NormalWooster Community HospitalComment on above:Result Comment: Pro-BNP Reference Range:Rule Out: <300Grey Zone: Age <50 300-450 Age 50-75 300-900 Age >75 300-1800Usually represents mild to moderate HF but other cardiopulmonary causes cannot be ruled out.Rule In: Age <50 >450 Age 50-75 >900 Age >75 >1800Performed By: #### ERTPF, CONNER, LIP, LIVP, TEGCR ####[address] [address] Natriuretic peptide B mass conc (Bld)648 pg/mLHigh<300MerAvalon Municipal HospitalComment on above:Result Comment: Pro-BNP results cannot be compared to BNP results.Performed By: #### ERTPF, CONNER, LIP, LIVP, TEGCR ####[facility] [address] [place] [address] CBCon 74-65-1040Uamgzbujgpp distribution width Auto Ratio (RBC)16.7 %High11.8-14.4 [facility] HospitalComment on above:Performed By: #### ERTPF, CONNER, LIP, LIVP, TEGCR ####[facility] [address] [place] [address] Hematocrit Auto Volume Fraction (Bld)26.2 %Low40.7-50.3MSonoma Developmental CenterComment on above:Performed By: #### ERTPF, CONNER, LIP, LIVP, TEGCR ####[facility] [address]oxhab[address] [place] [address] Hemoglobin mass conc (Bld)8.4 g/dLLow13.0-17.0[facility] Comment on above:Performed By: #### ERTPF, CONNER, LIP, LIVP, TEGCR ####[facility] [address] [place] [address] MC Auto Entitic mass (RBC)29.5 nbWuekxg31.2-33.5[facility] HospitalComment on above: Performed By: #### ERTPF, CONNER, LIP, LIVP, TEGCR ####[facility] [address] [place] [address] MCHC Auto mass conc (RBC)32.1 g/dLNormal 28.4-34.8[facility] HospitalComment on above:Performed By: #### ERTPF, CONNER, LIP, LIVP, TEGCR ####[place] [address] MCV Auto Entitic volume (RBC)91.9 bFOxnoga54.6-102.9[facility] HospitalComment on above:Performed By: #### ERTPF, CONNER, LIP, LIVP, TEGCR ####[place] [address] NRBC Automated0.3 per 100 WBCHigh0.0[facility] HospitalComment on above: Performed By: #### ERTPF, CONNER, LIP, LIVP, TEGCR ####[place] [address] Platelet mean volume Auto Entitic volume (Bld)11.8 fLNormal8.1-13.5[facility] HospitalComment on above: Performed By: #### ERTPF, CONNER, LIP, LIVP, TEGCR ####[place] [address] Platelets Auto #/vol (Bld)507 10*3/uLHigh 138-453[facility] HospitalComment on above:Performed By: #### ERTPF, CONNER, LIP, LIVP, TEGCR ####Saritha [address] [place] [address] RBC Auto #/vol (Bld)2.85 10*6/uLLow4.21-5.77[facility] HospitalComment on above:Performed By: #### ERTPF, CONNER, LIP, LIVP, TEGCR ####[facility] [address] [place] [address] WBC Auto #/vol (Bld)25.9 10*3/uLHigh3.5-11.3Mgreene memorial hospitaly [facility] Of GardenaComment on above: Performed By: #### ERTPF, CONNER, LIP, LIVP, TEGCR ####Filomena [address] [place] [address] Magnesiumon 21-29-1268Ekmqupihz mass conc 2.4 mg/dLNormal1.6-2.6MercKindred HospitalComment on above:Performed By: #### ERTPF, CONNER, LIP, LIVP, TEGCR ####Filomena [address]sm[address] [place] [address] Phosphorus, Inorg.on 24-05-7738Gvvptbpwbk, Inorg.5.1 mg/dLHigh2.5-4.5[facility] HospitalComment on above: Performed By: #### ERTPF, CONNER, LIP, LIVP, TEGCR ####[facility] [address] [place] [address] XR CHEST PORTABLEon 13-59-5058VX CHEST PORTABLEEXAMINATION:SINGLE XRAY VIEW OF THE CHEST02/12/2018 8:05 amCOMPARISON:February 07, [...] to be a gastrostomy tube. Gas is presentwithinmildly prominent loops of small and large bowel.IMPRESSION: Status post tracheostomy tube placementand gastrostomy tube placement.Basilar atelectasis and small left effusion are again noted with overallimproved aeration of the lungs.Interpreted by:NADEGE Burksigned by:Fidel Marley MD02/12/18Final resultNormalWooster Community HospitalBasic Metabolic Prof on 02-11-2018(cont.)NormalWooster Community HospitalComment on above: Result Comment: Average GFR for 50-59 years old: 93 mL/min/1.73sq mChronic Kidney Disease: <60 mL/min/1.73sq mKidney failure: <15 mL/min/1.73sq meGFR calculated using average adult body mass. Additional eGFR calculator available at:http://www.WePow.Fanergies/multiple_crcl_2012.htmPerformed By: #### ERTPF, CONNER, LIP, LIVP, TEGCR ####[facility] [address]raxml[address] [place] 43[address] [phone] gap 3 molar conc19 mmol/LHigh9-17[facility] HospitalComment on above:Performed By: #### ERTPF, CONNER, LIP, LIVP, TEGCR ####[facility] [address]yt[address] [place] [address] Calcium mass conc8.8 mg/dLNormal8.6-10.4[facility] HospitalComment on above:Performed By: #### ERTPF, CONNER, LIP, LIVP, TEGCR ####Egener[facility] [address] [place] [address] Chloride molar mhvg795 mmol/WUhavsf82-442RakbyWooster Community HospitalComment on above:Performed By: #### ERTPF, CONNER, LIP, LIVP, TEGCR ####[facility] [address]utt[address]mlqcd[address] [place] [address] CO2 molar conc17 mmol/YGxi07-00PgjtzAvalon Municipal HospitalComment on above: Performed By: #### ERTPF, CONNER, LIP, LIVP, TEGCR ####[facility] [address] [place] [address] Creatinine mass conc2.91 mg/dLHigh 0.70-1.20MerAvalon Municipal HospitalComment on above:Performed By: #### ERTPF, CONNER, LIP, LIVP, TEGCR ####[facility] [address] [place] [address] GFR, Amer27 mL/minLow>60[facility] HospitalComment on above:Performed By: #### ERTPF, CONNER, LIP, LIVP, TEGCR ####[facility] [address] [place] [address] GFR,non Amer22 mL/minLow>60[facility] HospitalComment on above:Performed By: #### ERTPF, CONNER, LIP, LIVP, TEGCR ####[address] [address] Glucose mass legu794 mg/nNNkiv44-14Yivxk [facility] Hospital Of GardenaComment on above:Performed By: #### ERTPF, CONNER, LIP, LIVP, TEGCR ####[facility] [address]ff[address] [place] [address] Potassium molar conc3.4 mmol/LLow3.7-5.3[facility] Hospital Of GardenaComment on above:Performed By: #### ERTPF, CONNER, LIP, LIVP, TEGCR ####[facility] [address] [place] [address] Sodium molar hazf013 mmol/EMgzkhz095-627YysalWooster Community HospitalComment on above:Performed By: #### ERTPF, CONNER, LIP, LIVP, TEGCR ####[facility] [address]urof[address] [place] [address] Urea nitrogen mass conc75 mg/dLHigh6-20[facility] HospitalComment on above: Performed By: #### ERTPF, CONNER, LIP, LIVP, TEGCR ####[facility] [address]xcavg[address] [place], [place] [phone]/CRE RatioNOT REPORTEDNormal9-20[facility] HospitalComment on above:Performed By: #### ERTPF, CONNER, LIP, LIVP, TEGCR ####Egener[facility] [address] [place] [address] Staging:NOT REPORTEDNormalWooster Community HospitalComment on above: Performed By: #### ERTPF, CONNER, LIP, LIVP, TEGCR ####Egener[facility] [address]tytfj[address] [place], [place] [phone] Natri. Peptideon 02-11-2018 Natriuretic peptide B mass conc (Bld)NormalWooster Community Hospital Comment on above:Result Comment: Pro-BNP Reference Range:Rule Out: <300Grey Zone: Age <50 300-450 Age 50-75 300-900 Age >75 300-1800Usually represents mild to moderate HF but other cardiopulmonary causes cannot be ruled out.Rule In: Age <50 >450 Age 50-75 >900 Age >75 >1800Performed By: #### ERTPF, CONNER, LIP, LIVP, TEGCR ####Egener[facility] [address]vg[address]hm[address] [place] [address] Natriuretic peptide B mass conc (Bld)1407 pg/mLHigh<300[facility] HospitalComment on above:Result Comment: Pro-BNP results cannot be compared to BNP results.Performed By: #### ERTPF, CONNER, LIP, LIVP, TEGCR ####[facility] [address]wjolfzmret[address] [place], [place] [phone] 02-11-2018 Erythrocyte distribution width Auto Ratio (RBC)16.7 %High11.8-14.4[facility] HospitalComment on above:Performed By: #### ERTPF, CONNER, LIP, LIVP, TEGCR ####[facility] [address]whx[address]zf[address] [place] [address] Hematocrit Auto Volume Fraction (Bld)28.4 %Low40.7-50.3MSonoma Developmental CenterComment on above:Performed By: #### ERTPF, CONNER, LIP, LIVP, TEGCR ####[facility] Gh[address]zv[address] [place], [place] [phone] mass conc (Bld)9.1 g/dLLow13.0-17.0W[facility] Community HospitalComment on above:Performed By: #### ERTPF, CONNER, LIP, LIVP, TEGCR ####[facility] Es[address] [place] [address] [phone] Auto Entitic mass (RBC)29.3 pgNormal 25.2-33.5[facility] HospitalComment on above:Performed By: #### ERTPF, CONNER, LIP, LIVP, TEGCR ####[address] [address] MCHC Auto mass conc (RBC)32.0 g/vQIscvgi04.4-34.8W[facility] HospitalComment on above:Performed By: #### ERTPF, CONNER, LIP, LIVP, TEGCR ####[facility] [address] [place] [address] MCV Auto Entitic volume (RBC)91.3 eKKwbkwv22.6-102.9[facility] Comment on above:Performed By: #### ERTPF, CONNER, LIP, LIVP, TEGCR ####Mercernie RojasXzbnigimgp[address] [place] [address] NRBC Automated0.3 per 100 WBCHigh0.0W[facility]oster [facility] HospitalComment on above:Performed By: #### ERTPF, CONNER, LIP, LIVP, TEGCR ####Filomena [address] [address] Platelet mean volume Auto Entitic volume (Bld)11.7 fLNormal 8.1-13.5[facility] HospitalComment on above:Performed By: #### ERTPF, CONNER, LIP, LIVP, TEGCR ####[address] [address] Platelets Auto #/vol (Bld)466 10*3/qTRgan441-748QriarWooster Community HospitalComment on above:Performed By: #### ERTPF, CONNER, LIP, LIVP, TEGCR ####[place] [address] RBC Auto #/vol (Bld)3.11 10*6/uLLow4.21-5.77[facility] HospitalComment on above:Performed By: #### ERTPF, CONNER, LIP, LIVP, TEGCR ####[address] [address] WBC Auto #/vol (Bld)24.8 10*3/uLHigh3.5-11.3MSonoma Developmental CenterComment on above:Performed By: #### ERTPF, CONNER, LIP, LIVP, TEGCR ####[address] [address] Triglycerideson 32-90-9162Hptuptfmaicj mass conc 202 mg/dLHigh<150W[facility] HospitalComment on above:Result Comment: Triglyceride Guidelines: <150 Desirable 150-199 Borderline 200-499 High >499 Very high Based on AHA Guidelines for fasting triglyceride, February 2012. Performed By: #### ERTPF, CONNER, LIP, LIVP, TEGCR ####[facility] [address] [place] [address] Basic Metabolic Profon 02-10-2018(cont.) NormalWooster Community HospitalComment on above:Result Comment: Average GFR for 50-59 years old: 93 mL/min/1.73sq mChronic Kidney Disease: <60 mL /min/1.73sq mKidney failure: <15 mL/min/1.73sq meGFR calculated using average adult body mass. Additional eGFR calculator available at:http://www.Blushr/multiple_crcl_2011.htmPerformed By: #### ERTPF, CONNER, LIP, LIVP, TEGCR ####[facility] [address]lekqbkozvzx[address] [place] [address] [phone] gap 3 molar conc17 mmol/LNormal9-17[facility] HospitalComment on above:Performed By: #### ERTPF, CONNER, LIP, LIVP, TEGCR ####[facility] [address]eq[address]ypqxrte[address] [place] [address] Calcium mass conc9.0 mg/dLNormal8.6-10.4[facility] HospitalComment on above: Performed By: #### ERTPF, CONNER, LIP, LIVP, TEGCR ####[facility] [address]cyndhrocvf[address] [place] [address] Chloride molar yxwy304 mmol/AEeaubp86-062 [facility] HospitalComment on above:Performed By: #### ERTPF, CONNER, LIP, LIVP, TEGCR ####[facility] Gelmrpqevbjf[address] [place] [address] XS1 molar conc19 mmol/ZXdw49-16IdzqsWooster Community Hospital Comment on above:Performed By: #### ERTPF, CONNER, LIP, LIVP, TEGCR ####[facility] Gbbxarxtfqkv[address] [place] [address] Creatinine mass conc3.02 mg/dLHigh0.70-1.20[facility] Of GardenaComment on above:Performed By: #### ERTPF, CONNER, LIP, LIVP, TEGCR ####[facility] [address] [place] [address] GFR, Amer26 mL/minLow>60[facility] Of GardenaComment on above:Performed By: #### ERTPF, CONNER, LIP, LIVP, TEGCR ####[facility] [address] [place] [address] GFR,non Amer22 mL/minLow>60[facility] HospitalComment on above: Performed By: #### ERTPF, CONNER, LIP, LIVP, TEGCR ####[place] [address] Glucose mass ewiz573 mg/yAManh53-31Ukeqp [facility] Of GardenaComment on above:Performed By: #### ERTPF, CONNER, LIP, LIVP, TEGCR ####[place] [address] Potassium molar conc3.5 mmol/LLow3.7-5.3[facility] Of GardenaComment on above:Performed By: #### ERTPF, CONNER, LIP, LIVP, TEGCR ####[facility] [address] [place] [address] Sodium molar ilbm419 mmol/AGsgpsx178-051Twwvb [facility] Of GardenaComment on above:Performed By: #### ERTPF, CONNER, LIP, LIVP, TEGCR ####[place] [address] Urea nitrogen mass conc71 mg/dLHigh6-20MerAvalon Municipal HospitalComment on above:Performed By: #### ERTPF, CONNER, LIP, LIVP, TEGCR ####[facility] [address] [place] [address] BUN/CRE RatioNOT REPORTEDNormal9-20[facility] HospitalComment on above:Performed By: #### ERTPF, CONNER, LIP, LIVP, TEGCR ####[place] [address] [place], [place] [phone]:NOT REPORTEDNormalWooster Community HospitalComment on above:Performed By: #### ERTPF, CONNER, LIP, LIVP, TEGCR ####[address] [phone] Natri. Peptideon 55-43-3956Zlbajhogpbd peptide B mass conc (Bld)NormalWooster Community HospitalComment on above:Result Comment: Pro-BNP Reference Range:Rule Out: <300Grey Zone: Age <50 300-450 Age 50-75 300-900 Age >75 300- 1800Usually represents mild to moderate HF but other cardiopulmonary causes evelyne ot be ruled out.Rule In: Age <50 >450 Age 50-75 >900 Age >75 >1800Performed By: #### ERTPF, CONNER, LIP, LIVP, TEGCR ####[address] [address] Natriuretic peptide B mass conc (Bld)1392 pg/mLHigh<300 [facility] HospitalComment on above:Result Comment: Pro-BNP results cannot be compared to BNP results.Performed By: #### ERTPF, CONNER, LIP, LIVP, TEGCR ####[facility] Djhpjcql[address]iz[address] [place], [place] [phone] 17-05-8162Fkbwkwpnvks distribution width Auto Ratio (RBC)17.3 %High11.8-14.4 [facility] HospitalComment on above:Performed By: #### ERTPF, CONNER, LIP, LIVP, TEGCR ####[facility] [address]lorzq[address] [place] 43[address] Hematocrit Auto Volume Fraction (Bld)30.3 %Low40.7-50.3[facility] Of GardenaComment on above:Performed By: #### ERTPF, CONNER, LIP, LIVP, TEGCR ####Sarithay [address] [place] [address] Hemoglobin mass conc (Bld)9.1 g/dLLow13.0-17.0[facility] Comment on above:Performed By: #### ERTPF, CONNER, LIP, LIVP, TEGCR ####[facility] [address]zim[address]xydotwh[address] [place] [address] MCH Auto Entitic mass (RBC)29.4 zfElpscz59.2-33.5[facility] HospitalComment on above: Performed By: #### ERTPF, CONNER, LIP, LIVP, TEGCR ####Filomena [address] [place] [address] MCHC Auto mass conc (RBC)30.0 g/dLNormal 28.4-34.8[facility] HospitalComment on above:Performed By: #### ERTPF, CONNER, LIP, LIVP, TEGCR ####Filomena [address]lat[address] [place] [address] MCV Auto Entitic volume (RBC)98.1 sQFhwpcr20.6-102.9[facility] HospitalComment on above:Performed By: #### ERTPF, CONNER, LIP, LIVP, TEGCR ####[facility] [address]xf[address]zuvtpu[address] [place] [phone] Automated0.4 per 100 WBCHigh0.0W[facility] HospitalComment on above: Performed By: #### ERTPF, CONNER, LIP, LIVP, TEGCR ####[facility] [address]sf[address]ibuixw[address] [place] [phone] mean volume Auto Entitic volume (Bld)11.5 fLNormal8.1-13.5[facility] HospitalComment on above: Performed By: #### ERTPF, CONNER, LIP, LIVP, TEGCR ####Filomena [address] [place] [address] Platelets Auto #/vol (Bld)526 10*3/uLHigh 138-453W[facility] HospitalComment on above:Performed By: #### ERTPF, CONNER, LIP, LIVP, TEGCR ####Filomena Z[address]so[address]ibjdo[address] [place] [address] RBC Auto #/vol (Bld)3.09 10*6/uLLow4.21-5.77[facility] HospitalComment on above:Performed By: #### ERTPF, CONNER, LIP, LIVP, TEGCR ####Filomena [address] [place] [address] WBC Auto #/vol (Bld)24.5 10*3/uLHigh3.5-11.3Mgreene memorial hospitaly [facility] Of GardenaComment on above: Performed By: #### ERTPF, CONNER, LIP, LIVP, TEGCR ####Filomena [address] [place] [address] [phone] Rejectionon 67-05-2902Zlziwj for rejectionUnable to perform testing: Specimen hemolyzed.NormalWooster Community HospitalComment on above:Performed By: #### ERTPF, CONNER, LIP, LIVP, TEGCR ####Sarithay [address]fst[address]mtwjso[address] [place], [place] [phone] of sample.BLOODNormalWooster Community HospitalComment on above:Performed By: #### ERTPF, CONNER, LIP, LIVP, TEGCR ####Sarithay [address]wg[address] [place] [address] [phone] orderedBMPNormalWooster Community Hospital Comment on above:Performed By: #### ERTPF, CONNER, LIP, LIVP, TEGCR ####[facility] [address]tt[address]ydnvyq[address] [place], [place] [phone] -----NOT REPORTEDNormal [facility] HospitalComment on above:Performed By: #### ERTPF, CONNER, LIP, LIVP, TEGCR ####[facility] [address]osbeaiz[address] [place] [address] XR ABDOMEN (KUB) (SINGLE AP VIEW)on [id number] ABDOMEN (KUB) (SINGLE AP VIEW)EXAMINATION:SINGLE SUPINE XRAY VIEW(S) OF THE PALPBBF2302/10/2018 2:04 pmCOMPARISON:None.HISTORY:ORDERING SYSTEM PROVIDED HISTORY: s/p PEGTECHNOLOGIST PROVIDED HISTORY:With gastrografin to determine for leakPlease call [phone] for questions.Reason for exam:->s/p PEGFINDINGS:Diffuse bowel distention. A gastrostomy tube is present in the left upperquadrant. The balloon is inflated. Injected contrast opacifies the stomach.No extravasation of contrast.IMPRESSION: No extravasation of contrast.Interpreted by:NADEGE Lancasterigned by:Hebert Best MD02/10/18inal resultNormalWooster Community HospitalBasic Metabolic Profon 02-09-2018(cont.)NormalWooster Community HospitalComment on above:Result Comment: Average GFR for 50-59 years old: 93 mL/min/1.73sq mChronic Kidney Disease: <60 mL/min/1.73sq mKidney failure: <15 mL/min/1.73sq meGFR calculated using average adult body mass. Additional eGFR calculator available at:http://www.WePow.Fanergies/multiple_crcl_2012.htmPerformed By: #### ERTPF, CONNER, LIP, LIVP, TEGCR ####Filomena [address]unr[address] [place], [place] [phone] Anion gap 3 molar conc16 mmol/LNormal9-17[facility] HospitalComment on above:Performed By: #### ERTPF, CONNER, LIP, LIVP, TEGCR ####[facility] [address]xs[address] [place] [address] Calcium mass conc8.3 mg/dLLow8.6-10.4[facility] HospitalComment on above:Performed By: #### ERTPF, CONNER, LIP, LIVP, TEGCR ####[facility] [address] [place] [address] Chloride molar uodh583 mmol/IXxfk72-068 [facility] HospitalComment on above:Performed By: #### ERTPF, CONNER, LIP, LIVP, TEGCR ####[place] [address] [place] [address] IR7 molar conc18 mmol/ENsm55-18LuopvWooster Community Hospital Comment on above:Performed By: #### ERTPF, CONNER, LIP, LIVP, TEGCR ####[facility] [address] [place] [address] Creatinine mass conc3.10 mg/dLHigh0.70-1.20[facility] HospitalComment on above:Performed By: #### ERTPF, CONNER, LIP, LIVP, TEGCR ####[address] [address] GFR, Amer25 mL/minLow>60MerAvalon Municipal HospitalComment on above:Performed By: #### ERTPF, CONNER, LIP, LIVP, TEGCR ####[facility] [address] [place] [address] GFR,non Amer21 mL/minLow>60[facility] HospitalComment on above: Performed By: #### ERTPF, CONNER, LIP, LIVP, TEGCR ####[place] [address] [place] [address] Glucose mass mdva460 mg/oJWdnr18-26Csffe [facility] Hospital Of GardenaComment on above:Performed By: #### ERTPF, CONNER, LIP, LIVP, TEGCR ####[facility] [address]javqkpcto08[address] [place] [address] Potassium molar conc4.0 mmol/LNormal3.7-5.3Mgreene memorial hospitaly [facility] Comment on above:Performed By: #### ERTPF, CONNER, LIP, LIVP, TEGCR ####[facility] [address]tyzh[address] [place] [address] Sodium molar sggq786 mmol/SLocgfy142-540MxrwgWooster Community HospitalComment on above:Performed By: #### ERTPF, CONNER, LIP, LIVP, TEGCR ####[facility] [address]qjcghx[address] [place] [address] Urea nitrogen mass conc67 mg/dLHigh6-20[facility] HospitalComment on above:Performed By: #### ERTPF, CONNER, LIP, LIVP, TEGCR ####[facility] Yig[address]ml[address] [place] [address] BUN/CRE RatioNOT REPORTEDNormal9-20[facility] HospitalComment on above:Performed By: #### ERTPF, CONNER, LIP, LIVP, TEGCR ####[facility] [address] [place] [address] Staging:NOT REPORTEDNormalWooster Community HospitalComment on above:Performed By: #### ERTPF, CONNER, LIP, LIVP, TEGCR ####[facility] [address] [place] [address] Brain Natri. Peptideon 84-14-6977Tacflxacorl peptide B mass conc (Bld)NormalWooster Community HospitalComment on above:Result Comment: Pro-BNP Reference Range:Rule Out: <300Grey Zone: Age <50 300-450 Age 50-75 300-900 Age >75 300- 1800Usually represents mild to moderate HF but other cardiopulmonary causes evelyne ot be ruled out.Rule In: Age <50 >450 Age 50-75 >900 Age >75 >1800Performed By: #### ERTPF, CONNER, LIP, LIVP, TEGCR ####[address] [phone] peptide B mass conc (Bld)1435 pg/mLHigh<300 [facility] HospitalComment on above:Result Comment: Pro-BNP results cannot be compared to BNP results.Performed By: #### ERTPF, CONNER, LIP, LIVP, TEGCR ####[address] [phone] 53-37-9949Rhghavwsfiw distribution width Auto Ratio (RBC)17.7 %High11.8-14.4 [facility] HospitalComment on above:Performed By: #### ERTPF, CONNER, LIP, LIVP, TEGCR ####[address] [address] [phone] Auto Volume Fraction (Bld)29.4 %Low40.7-50.3Mgreene memorial hospitaly [facility] Hospital Of GardenaComment on above:Performed By: #### ERTPF, CONNER, LIP, LIVP, TEGCR ####[address] [address] Hemoglobin mass conc (Bld)8.8 g/dLLow13.0-17.0[facility] Comment on above:Performed By: #### ERTPF, CONNER, LIP, LIVP, TEGCR ####[address] [address] MCH Auto Entitic mass (RBC)29.2 oaIflhmf08.2-33.5[facility] HospitalComment on above: Performed By: #### ERTPF, CONNER, LIP, LIVP, TEGCR ####[address] [place] [address] MCHC Auto mass conc (RBC)29.9 g/dLNormal 28.4-34.8[facility] HospitalComment on above:Performed By: #### ERTPF, CONNER, LIP, LIVP, TEGCR ####[address] [address] MCV Auto Entitic volume (RBC)97.7 yMBaezvd65.6-102.9[facility] HospitalComment on above:Performed By: #### ERTPF, CONNER, LIP, LIVP, TEGCR ####[place] [address] NRBC Automated0.9 per 100 WBCHigh0.0[facility] HospitalComment on above: Performed By: #### ERTPF, CONNER, LIP, LIVP, TEGCR ####[place] [address] Platelet mean volume Auto Entitic volume (Bld)11.5 fLNormal8.1-13.5[facility] HospitalComment on above: Performed By: #### ERTPF, CONNER, LIP, LIVP, TEGCR ####[place] [address] Platelets Auto #/vol (Bld)458 10*3/uLHigh 138-453MerAvalon Municipal HospitalComment on above:Performed By: #### ERTPF, CONNER, LIP, LIVP, TEGCR ####[place] [address] RBC Auto #/vol (Bld)3.01 10*6/uLLow4.21-5.77[facility] HospitalComment on above:Performed By: #### ERTPF, CONNER, LIP, LIVP, TEGCR ####[place] [address] WBC Auto #/vol (Bld)19.8 10*3/uLHigh3.5-11.3MSonoma Developmental CenterComment on above: Performed By: #### ERTPF, CONNER, LIP, LIVP, TEGCR ####[address] [address] Basic Metabolic Profon 02-08-2018(cont.) NormalWooster Community HospitalComment on above:Result Comment: Average GFR for 50-59 years old: 93 mL/min/1.73sq mChronic Kidney Disease: <60 mL /min/1.73sq mKidney failure: <15 mL/min/1.73sq meGFR calculated using average adult body mass. Additional eGFR calculator available at:http://www.Blushr/multiple_crcl_2012.htmPerformed By: #### ERTPF, CONNER, LIP, LIVP, TEGCR ####[address] [address] [phone] gap 3 molar conc13 mmol/LNormal9-17[facility] HospitalComment on above:Performed By: #### ERTPF, CONNER, LIP, LIVP, TEGCR ####[address] [address] Calcium mass conc8.3 mg/dLLow8.6-10.4[facility] HospitalComment on above: Performed By: #### ERTPF, CONNER, LIP, LIVP, TEGCR ####[place] [address] [place] [address] Chloride molar wngo705 mmol/CKcob31-379 [facility] HospitalComment on above:Performed By: #### ERTPF, CONNER, LIP, LIVP, TEGCR ####[place] [address] [place] 43[address] LY3 molar conc17 mmol/ABqq98-86HtngmWooster Community Hospital Comment on above:Performed By: #### ERTPF, CONNER, LIP, LIVP, TEGCR ####[facility] Xducllvmalcu[address] [place] [address] Creatinine mass conc3.39 mg/dLHigh0.70-1.20[facility] HospitalComment on above:Performed By: #### ERTPF, CONNER, LIP, LIVP, TEGCR ####[facility] [address]pos[address]et[address] [place] [address] GFR, Amer23 mL/minLow>60[facility] HospitalComment on above:Performed By: #### ERTPF, CONNER, LIP, LIVP, TEGCR ####[facility] [address]icpajb[address] [place] [address] GFR,non Amer19 mL/minLow>60[facility] HospitalComment on above: Performed By: #### ERTPF, CONNER, LIP, LIVP, TEGCR ####[facility] [address] [place] [address] Glucose mass dcpf135 mg/vPJymq33-01XegntSonoma Developmental CenterComment on above:Performed By: #### ERTPF, CONNER, LIP, LIVP, TEGCR ####[address] [address] Potassium molar conc4.3 mmol/LNormal3.7-5.3MSonoma Developmental Center Comment on above:Performed By: #### ERTPF, CONNER, LIP, LIVP, TEGCR ####[facility] X[address]sfs[address] [place] [address] Sodium molar wuyq650 mmol/DQvwcbv914-401TijdcWooster Community HospitalComment on above:Performed By: #### ERTPF, CONNER, LIP, LIVP, TEGCR ####[facility] [address] [place] [address] Urea nitrogen mass conc68 mg/dLHigh6-20[facility] HospitalComment on above:Performed By: #### ERTPF, CONNER, LIP, LIVP, TEGCR ####[facility] [address] [place] [address] BUN/CRE RatioNOT REPORTEDNormal9-20[facility] HospitalComment on above:Performed By: #### ERTPF, CONNER, LIP, LIVP, TEGCR ####[facility] [address] [place] [address] [phone]:NOT REPORTEDNormalWooster Community HospitalComment on above:Performed By: #### ERTPF, CONNER, LIP, LIVP, TEGCR ####[address] [phone] Natri. Peptideon 60-13-7806Heatnbshxog peptide B mass conc (Bld)NormalWooster Community HospitalComment on above:Result Comment: Pro-BNP Reference Range:Rule Out: <300Grey Zone: Age <50 300-450 Age 50-75 300-900 Age >75 300- 1800Usually represents mild to moderate HF but other cardiopulmonary causes evelyne ot be ruled out.Rule In: Age <50 >450 Age 50-75 >900 Age >75 >1800Performed By: #### ERTPF, CONNER, LIP, LIVP, TEGCR ####[address] [address] Natriuretic peptide B mass conc (Bld)1933 pg/mLHigh<300 [facility] HospitalComment on above:Result Comment: Pro-BNP results cannot be compared to BNP results.Performed By: #### ERTPF, CONNER, LIP, LIVP, TEGCR ####[place] [address] [place] [address] CBCon 38-05-9005Purpyshmttk distribution width Auto Ratio (RBC)18.3 %High11.8-14.4 [facility] HospitalComment on above:Performed By: #### ERTPF, CONNER, LIP, LIVP, TEGCR ####Saritha [address] [place] 43[address] [phone] Auto Volume Fraction (Bld)26.2 %Low40.7-50.3[facility] Hospital Of GardenaComment on above:Performed By: #### ERTPF, CONNER, LIP, LIVP, TEGCR ####[facility] [address] [place] [address] Hemoglobin mass conc (Bld)8.0 g/dLLow13.0-17.0[facility] Comment on above:Performed By: #### ERTPF, CONNER, LIP, LIVP, TEGCR ####Filomena [address] [address] MCH Auto Entitic mass (RBC)29.6 jxDbfcmi95.2-33.5MerAvalon Municipal HospitalComment on above: Performed By: #### ERTPF, CONNER, LIP, LIVP, TEGCR ####[facility] [address] [place] [address] MCHC Auto mass conc (RBC)30.5 g/dLNormal 28.4-34.8[facility] HospitalComment on above:Performed By: #### ERTPF, CONNER, LIP, LIVP, TEGCR ####[facility] [address]nc[address]fe[address] [place] [address] MCV Auto Entitic volume (RBC)97.0 lSDaduzw83.6-102.9[facility] HospitalComment on above:Performed By: #### ERTPF, CONNER, LIP, LIVP, TEGCR ####[facility] [address]jpeybvwabaz[address] [place] [address] NRBC Automated1.2 per 100 WBCHigh0.0[facility] HospitalComment on above: Performed By: #### ERTPF, CONNER, LIP, LIVP, TEGCR ####Filomena [address] [place] [address] Platelet mean volume Auto Entitic volume (Bld)12.1 fLNormal8.1-13.5[facility] HospitalComment on above: Performed By: #### ERTPF, CONNER, LIP, LIVP, TEGCR ####[address] [address] Platelets Auto #/vol (Bld)373 10*3/uL Sddjjq876-021HhbvfWooster Community HospitalComment on above:Performed By: #### ERTPF, CONNER, LIP, LIVP, TEGCR ####[place] [address] RBC Auto #/vol (Bld)2.70 10*6/uLLow4.21-5.77[facility] HospitalComment on above:Performed By: #### ERTPF, CONNER, LIP, LIVP, TEGCR ####[address] [address] WBC Auto #/vol (Bld)23.8 10*3/uLHigh3.5-11.3Mgreene memorial hospitaly [facility] Of GardenaComment on above: Performed By: #### ERTPF, CONNER, LIP, LIVP, TEGCR ####[facility] [address] [address] Magnesiumon 54-91-0895Gnxoxfnhx mass conc 2.4 mg/dLNormal1.6-2.6[facility] Of GardenaComment on above:Performed By: #### ERTPF, CONNER, LIP, LIVP, TEGCR ####[address] [address] Phosphorus, Inorg.on 40-46-2996Mmcxsnlxro, Inorg.5.7 mg/dLHigh2.5-4.5[facility] HospitalComment on above: Performed By: #### ERTPF, CONNER, LIP, LIVP, TEGCR ####Sarithay [address] [place] [phone] Basic Metabolic Profon 02-07-2018(cont.) NormalWooster Community HospitalComment on above:Result Comment: Average GFR for 50-59 years old: 93 mL/min/1.73sq mChronic Kidney Disease: <60 mL /min/1.73sq mKidney failure: <15 mL/min/1.73sq meGFR calculated using average adult body mass. Additional eGFR calculator available at:http://www.Blushr/multiple_crcl_2012.htmPerformed By: #### ERTPF, CONNER, LIP, LIVP, TEGCR ####[place] [address] [phone] gap 3 molar conc11 mmol/LNormal9-17[facility] HospitalComment on above:Performed By: #### ERTPF, CONNER, LIP, LIVP, TEGCR ####[facility] [address] [place] [address] Calcium mass conc8.3 mg/dLLow8.6-10.4[facility] HospitalComment on above: Performed By: #### ERTPF, CONNER, LIP, LIVP, TEGCR ####[facility] [address] [place] [address] Chloride molar hdsf403 mmol/QGzhv57-996 [facility] HospitalComment on above:Performed By: #### ERTPF, CONNER, LIP, LIVP, TEGCR ####[place] [id number] [place] [address] AG3 molar conc16 mmol/EMoi05-70YspneWooster Community Hospital Comment on above:Performed By: #### ERTPF, CONNER, LIP, LIVP, TEGCR ####[facility] [address] [place] [address] Creatinine mass conc3.99 mg/dLHigh0.70-1.20[facility] HospitalComment on above:Performed By: #### ERTPF, CONNER, LIP, LIVP, TEGCR ####[facility] [address] [place] [address] GFR, Amer19 mL/minLow>60MerAvalon Municipal HospitalComment on above:Performed By: #### ERTPF, CONNER, LIP, LIVP, TEGCR ####[address] [address] GFR,non Amer16 mL/minLow>60[facility] HospitalComment on above: Performed By: #### ERTPF, CONNER, LIP, LIVP, TEGCR ####[address] [address] Glucose mass tqjh616 mg/hWOpsx89-10Hnkrt Memorial Hospital Of GardenaComment on above:Performed By: #### ERTPF, CONNER, LIP, LIVP, TEGCR ####[address] [address] Potassium molar conc4.6 mmol/LNormal3.7-5.3[facility] Comment on above:Performed By: #### ERTPF, CONNER, LIP, LIVP, TEGCR ####[facility] [address] [place] [address] Sodium molar ydbm927 mmol/OYgeawt507-615BbbvuAvalon Municipal HospitalComment on above:Performed By: #### ERTPF, CONNER, LIP, LIVP, TEGCR ####[facility] [address]sfbeh[address] [place] [address] Urea nitrogen mass conc71 mg/dLHigh6-20[facility] HospitalComment on above:Performed By: #### ERTPF, CONNER, LIP, LIVP, TEGCR ####[facility] [address] [place] [address] BUN/CRE RatioNOT REPORTEDNormal9-20[facility] HospitalComment on above:Performed By: #### ERTPF, CONNER, LIP, LIVP, TEGCR ####[place] [address] [place], [place] [phone]:NOT REPORTEDNormalWooster Community HospitalComment on above:Performed By: #### ERTPF, CONNER, LIP, LIVP, TEGCR ####[facility] [address] [place] [address] Brain Natri. Peptideon 99-31-4292Syyxtmuushi peptide B mass conc (Bld)1696 pg/mLHigh <300W[facility] HospitalComment on above:Result Comment: Pro-BNP results cannot be compared to BNP results.Performed By: #### ERTPF, CONNER, LIP, LIVP, TEGCR ####[address] [address] Natriuretic peptide B mass conc (Bld)NormalWooster Community Hospital Comment on above:Result Comment: Pro-BNP Reference Range:Rule Out: <300Grey Zone: Age <50 300-450 Age 50-75 300-900 Age >75 300-1800Usually represents mild to moderate HF but other cardiopulmonary causes cannot be ruled out.Rule In: Age <50 >450 Age 50-75 >900 Age >75 >1800Performed By: #### ERTPF, CONNER, LIP, LIVP, TEGCR ####[address] [address] CBCon 95-42-4234Mlfrufccoua distribution width Auto Ratio (RBC)18.5 %High11.8-14.4 [facility] HospitalComment on above:Performed By: #### ERTPF, CONNER, LIP, LIVP, TEGCR ####[address] [place] 43[address] [phone] Auto Volume Fraction (Bld)23.5 %Low40.7-50.3[facility] Hospital Of GardenaComment on above:Performed By: #### ERTPF, CONNER, LIP, LIVP, TEGCR ####Filomena [address] [place] [address] Hemoglobin mass conc (Bld)7.4 g/dLLow13.0-17.0[facility] Comment on above:Performed By: #### ERTPF, CONNER, LIP, LIVP, TEGCR ####[facility] [address]rfpdivgl[address] [place] [address] MCH Auto Entitic mass (RBC)30.1 kyPkipsk76.2-33.5[facility] HospitalComment on above: Performed By: #### ERTPF, CONNER, LIP, LIVP, TEGCR ####[facility] [address]xzygppidouq[address] [place] [address] MCHC Auto mass conc (RBC)31.5 g/dLNormal 28.4-34.8[facility] HospitalComment on above:Performed By: #### ERTPF, CONNER, LIP, LIVP, TEGCR ####Filomena [address] [place] [address] MCV Auto Entitic volume (RBC)95.5 hRHzcbbb68.6-102.9[facility] HospitalComment on above:Performed By: #### ERTPF, CONNER, LIP, LIVP, TEGCR ####[facility] [address] [place] [address] NRBC Automated1.5 per 100 WBCHigh0.0W[facility] HospitalComment on above: Performed By: #### ERTPF, CONNER, LIP, LIVP, TEGCR ####[facility] Ajsh[address]trdbdjj[address] [place] [address] Platelet mean volume Auto Entitic volume (Bld)11.7 fLNormal8.1-13.5[facility] HospitalComment on above: Performed By: #### ERTPF, CONNER, LIP, LIVP, TEGCR ####Filomena [address] [place] [address] Platelets Auto #/vol (Bld)406 10*3/uL Vuqxam737-905RzbfrAvalon Municipal HospitalComment on above:Performed By: #### ERTPF, CONNER, LIP, LIVP, TEGCR ####[place] [address] RBC Auto #/vol (Bld)2.46 10*6/uLLow4.21-5.77[facility] HospitalComment on above:Performed By: #### ERTPF, CONNER, LIP, LIVP, TEGCR ####[facility] [place] [address] WBC Auto #/vol (Bld)24.8 10*3/uLHigh3.5-11.3MSonoma Developmental CenterComment on above: Performed By: #### ERTPF, CONNER, LIP, LIVP, TEGCR ####[place] [address] Hgb/Hcton 68-46-0848Oeygrtwmui Auto Volume Fraction (Bld)23.9 %Low40.7-50.3MSonoma Developmental CenterComment on above:Performed By: #### ERTPF, CONNER, LIP, LIVP, TEGCR ####Filomena [address] [place] [address] Hemoglobin mass conc (Bld)7.5 g/dLLow13.0-17.0[facility] HospitalComment on above: Performed By: #### ERTPF, CONNER, LIP, LIVP, TEGCR ####Filomena [address] [address] XR CHEST (SINGLE VIEW FRONTAL)on 13-67-7241ZO CHEST (SINGLE VIEW FRONTAL)EXAMINATION:SINGLE XRAY VIEW OF THE CHEST02/07/2018 8:48 amCOMPARISON:February 05, 2018HISTORY:ORDERING SYSTEM PROVIDED HISTORY: ventedTECHNOLOGIST PROVIDED HISTORY:ventedFINDINGS:ET tube and enteric tube in good position. Right upper extremity PICCterminates in the lower SVC as demonstrated previously. Stable cardiaccontours. Mild pulmonary venous congestion with bibasilar opacities similarto priorstudy. No pneumothorax is apparent.IMPRESSION: 1. Stable chest.2. Supporting devices are unchanged.I nterpreted by:NADEGE Lancasterigned by:Hebert Best MD02/07/18inal result NormalWooster Community HospitalAmylaseon 28-48-4451Flbqeot enzyme act/vol 167 U/SGinj28-446MjxoiWooster Community HospitalComment on above:Performed By: #### ERTPF, CONNER, LIP, LIVP, TEGCR ####[facility] [address]uy[address] [place], [place] [phone] Metabolic Profon 14-25-2089Lbpra gap 3 molar conc15 mmol/LNormal9-17[facility] HospitalComment on above:Performed By: #### ERTPF, CONNER, LIP, LIVP, TEGCR ####Sarithay [address] [place], [place] [phone] molar ocax458 mmol/TEyev02-714ExhzfWooster Community HospitalComment on above:Performed By: #### ERTPF, CONNER, LIP, LIVP, TEGCR ####Egeneray X[address]wzo[address] [place], [place] [phone] molar conc4.5 mmol/LNormal3.7-5.3[facility] Hospital Of GardenaComment on above:Performed By: #### ERTPF, CONNER, LIP, LIVP, TEGCR ####Tip[facility] [address] [place] [address] Sodium molar mudy598 mmol/UTwiwfb957-687 [facility] HospitalComment on above:Performed By: #### ERTPF, CONNER, LIP, LIVP, TEGCR ####[address] [place] [address] (cont.)NormalWooster Community HospitalComment on above: Result Comment: Average GFR for 50-59 years old: 93 mL/min/1.73sq mChronic Kidney Disease: <60 mL/min/1.73sq mKidney failure: <15 mL/min/1.73sq meGFR calculated using average adult body mass. Additional eGFR calculator available at:http://www.Blushr/multiple_crcl_2012.htmPerformed By: #### ERTPF, CONNER, LIP, LIVP, TEGCR ####[place] [address] Calcium mass conc8.0 mg/dLLow8.6-10.4[facility] HospitalComment on above:Performed By: #### ERTPF, CONNER, LIP, LIVP, TEGCR ####[address] [address] CO2 molar conc16 mmol/L Bgs83-38NyjamWooster Community HospitalComment on above:Performed By: #### ERTPF, CONNER, LIP, LIVP, TEGCR ####[facility] [address] [place] [address] Creatinine mass conc4.02 mg/dLHigh0.70-1.20[facility] HospitalComment on above:Performed By: #### ERTPF, CONNER, LIP, LIVP, TEGCR ####[facility] [address]yahdlt[address] [place], [place] [phone], Amer19 mL/minLow>60[facility] HospitalComment on above:Performed By: #### ERTPF, CONNER, LIP, LIVP, TEGCR ####[facility] [address]zky[address]ll[address] [place] [address] GFR,non Amer15 mL/minLow>60[facility] HospitalComment on above:Performed By: #### ERTPF, CONNER, LIP, LIVP, TEGCR ####[address] [address] Glucose mass vihe720 mg/gRXxvx60-59NfkzvSonoma Developmental CenterComment on above: Performed By: #### ERTPF, CONNER, LIP, LIVP, TEGCR ####[address] [address] Urea nitrogen mass conc72 mg/dLHigh6-20 [facility] HospitalComment on above:Performed By: #### ERTPF, CONNER, LIP, LIVP, TEGCR ####[address] [address] BUN/CRE RatioNOT REPORTEDNormal9-20[facility] HospitalComment on above:Performed By: #### ERTPF, CONNER, LIP, LIVP, TEGCR ####[address] [address] Staging:NOT REPORTED NormalWooster Community HospitalComment on above:Performed By: #### ERTPF, CONNER, LIP, LIVP, TEGCR ####[address] [address] [phone] Natri. Peptideon 86-74-3444Iloobnkeoop peptide B mass conc (Bld)NormalWooster Community HospitalComment on above:Result Comment: Pro- BNP Reference Range:Rule Out: <300Grey Zone: Age <50 300-450 Age 50-75 300-900 Age >75 300-1800Usually represents mild to moderate HF but other cardiopulmonary causes cannot be ruled out.Rule In: Age <50 >450 Age 50-75 >900 Age >75 >1800 Performed By: #### ERTPF, CONNER, LIP, LIVP, TEGCR ####[address] [address] Natriuretic peptide B mass conc (Bld)2505 pg/mLHigh<300[facility] Hospital Of GardenaComment on above:Result Comment: Pro-BNP results cannot be compared to BNP results.Performed By: #### ERTPF, CONNER, LIP, LIVP, TEGCR ####[address] [address] CBCon 29-33-6413Xtguwzpswzp distribution width Auto Ratio (RBC) 20.3 %High11.8-14.4[facility] HospitalComment on above:Performed By: #### ERTPF, CONNER, LIP, LIVP, TEGCR ####[address] [address] Hematocrit Auto Volume Fraction (Bld)22.9 %Low 40.7-50.3[facility] Hospital Of GardenaComment on above:Performed By: #### ERTPF, CONNER, LIP, LIVP, TEGCR ####[address] [phone] mass conc (Bld)6.9 g/dLCritically low13.0-17.0MerAvalon Municipal HospitalComment on above:Performed By: #### ERTPF, CONNER, LIP, LIVP, TEGCR ####[address] [address] MCH Auto Entitic mass (RBC)29.2 dvExmxgr51.2-33.5MerAvalon Municipal HospitalComment on above:Performed By: #### ERTPF, CONNER, LIP, LIVP, TEGCR ####[address] [address] MCHC Auto mass conc (RBC)30.1 g/dPSqsbls25.4-34.8MerCass Medical CenterCorcovado Medical CenterComment on above: Performed By: #### ERTPF, CONNER, LIP, LIVP, TEGCR ####[facility] [address]ov[address] [place] [address] MCV Auto Entitic volume (RBC)97.0 fL Exavmv46.6-102.9[facility] HospitalComment on above:Performed By: #### ERTPF, CONNER, LIP, LIVP, TEGCR ####[facility] [address] [place] [address] NRBC Automated1.8 per 100 WBCHigh0.0[facility] HospitalComment on above:Performed By: #### ERTPF, CONNER, LIP, LIVP, TEGCR ####[place] [address] Platelet mean volume Auto Entitic volume (Bld)11.9 fLNormal8.1-13.5[facility] HospitalComment on above:Performed By: #### ERTPF, CONNER, LIP, LIVP, TEGCR ####[place] [address] Platelets Auto #/vol (Bld)399 10*3/kLSfhvcm804-030DdfcxWooster Community HospitalComment on above: Performed By: #### ERTPF, CONNER, LIP, LIVP, TEGCR ####[place] [address] RBC Auto #/vol (Bld)2.36 10*6/uLLow 4.21-5.77[facility] HospitalComment on above:Performed By: #### ERTPF, CONNER, LIP, LIVP, TEGCR ####[address] [address] WBC Auto #/vol (Bld)25.6 10*3/uLHigh3.5-11.3MSonoma Developmental CenterComment on above:Performed By: #### ERTPF, CONENR, LIP, LIVP, TEGCR ####[address] [place] [address] Creatine Kinaseon 91-35-2626XC enzyme act/jia735 U/IJgay97-398BpwdwWooster Community HospitalComment on above:Performed By: #### ERTPF, CONNER, LIP, LIVP, TEGCR ####[address] [address] Lactic Acid,Whole Blon 70-46-5113Erbrel Acid,Whole Bl0.7 mmol/LNormal0.7-2.1MSonoma Developmental CenterComment on above:Performed By: #### ERTPF, CONNER, LIP, LIVP, TEGCR ####[address] [address] Lactic Acid,Whole Bl0.8 mmol/LNormal0.7-2.1MSonoma Developmental CenterComment on above:Performed By: #### ERTPF, CONNER, LIP, LIVP, TEGCR ####[address] [address] Lipaseon 91-73-6062Fsgyou enzyme act/vol51 U/L Bkbhqn38-34VkrocWooster Community HospitalComment on above:Performed By: #### ERTPF, CONNER, LIP, LIVP, TEGCR ####[address] [address] Myoglobinon 10-52-2799Uthdmqmku mass rlnr995 ng/kXUjsl97-55 [facility] HospitalComment on above:Performed By: #### ERTPF, CONNER, LIP, LIVP, TEGCR ####[address] [address] Basic Metabolic Profon 02-05-2018(cont.)NormalWooster Community HospitalComment on above:Result Comment: Average GFR for 50-59 years old: 93 mL/min/1.73sq mChronic Kidney Disease: <60 mL/min/1.73sq mKidney failure: <15 mL/min/1.73sq meGFR calculated using average adult body mass. Additional eGFR calculator available at:http://www.WePow.Fanergies/multiple_crcl_2012.htmPerformed By: #### ERTPF, CONNER, LIP, LIVP, TEGCR ####[facility] [address] [place] [address] Anion gap 3 molar conc12 mmol/LNormal9-17[facility] HospitalComment on above:Performed By: #### ERTPF, CONNER, LIP, LIVP, TEGCR ####[facility] [address] [place] [address] Calcium mass conc7.6 mg/dLLow8.6-10.4[facility] HospitalComment on above:Performed By: #### ERTPF, CONNER, LIP, LIVP, TEGCR ####[address] [place] [address] Chloride molar ynwi455 mmol/SQebj74-595 [facility] HospitalComment on above:Performed By: #### ERTPF, CONNER, LIP, LIVP, TEGCR ####[facility] [address]fri[address] [place] [address] ZR6 molar conc16 mmol/DZyc55-85ChbwxWooster Community Hospital Comment on above:Performed By: #### ERTPF, CONNER, LIP, LIVP, TEGCR ####[facility] [address]zm[address]emkzxqtu[address] [place] [address] Creatinine mass conc3.63 mg/dLHigh0.70-1.20[facility] HospitalComment on above:Performed By: #### ERTPF, CONNER, LIP, LIVP, TEGCR ####[facility] [address]ed[address]rv[address] [place] [address] GFR, Amer21 mL/minLow>60[facility] HospitalComment on above:Performed By: #### ERTPF, CONNER, LIP, LIVP, TEGCR ####[address] [address] GFR,non Amer17 mL/minLow>60[facility] HospitalComment on above: Performed By: #### ERTPF, CONNER, LIP, LIVP, TEGCR ####[facility] [address] [place] [address] Glucose mass vbrc314 mg/tERsfi02-55KcdfkSonoma Developmental CenterComment on above:Performed By: #### ERTPF, CONNER, LIP, LIVP, TEGCR ####[place] [address] Potassium molar conc4.1 mmol/LNormal3.7-5.3MSonoma Developmental Center Comment on above:Performed By: #### ERTPF, CONNER, LIP, LIVP, TEGCR ####[address] [address] Sodium molar mqhj280 mmol/HIknlcq833-373JsivjWooster Community HospitalComment on above:Performed By: #### ERTPF, CONNER, LIP, LIVP, TEGCR ####[facility] [address] [place] [address] Urea nitrogen mass conc69 mg/dLHigh6-20[facility] HospitalComment on above:Performed By: #### ERTPF, CONNER, LIP, LIVP, TEGCR ####[place] [address] BUN/CRE RatioNOT REPORTEDNormal9-20[facility] HospitalComment on above:Performed By: #### ERTPF, CONNER, LIP, LIVP, TEGCR ####[facility] [address]um[address] [place] [address] Staging:NOT REPORTEDNormalWooster Community HospitalComment on above:Performed By: #### ERTPF, CONNER, LIP, LIVP, TEGCR ####[facility] [address]ifhwdop[address] [place] [address] Calcium mass conc7.6 mg/dLLow8.6-10.4[facility] HospitalComment on above: Performed By: #### ERTPF, CONNER, LIP, LIVP, TEGCR ####[facility] [address]hrrb[address] [place] [address] Urea nitrogen mass conc72 mg/dLHigh6-20 [facility] HospitalComment on above:Performed By: #### ERTPF, CONNER, LIP, LIVP, TEGCR ####[facility] [address] [place] 43[address] Creatinine mass conc3.70 mg/dLHigh0.70-1.20[facility] HospitalComment on above:Performed By: #### ERTPF, CONNER, LIP, LIVP, TEGCR ####[facility] [address]qceemupxsu[address] [place] [address] GFR, Amer21 mL/minLow>60[facility] HospitalComment on above:Performed By: #### ERTPF, CONNER, LIP, LIVP, TEGCR ####[facility] [address]zzlcgpt[address] [place] [address] GFR,non Amer17 mL/minLow>60[facility] HospitalComment on above:Performed By: #### ERTPF, CONNER, LIP, LIVP, TEGCR ####[facility] [address]cj[address]zh[address]zv[address] [place] [address] (cont.) NormalWooster Community HospitalComment on above:Result Comment: Average GFR for 50-59 years old: 93 mL/min/1.73sq mChronic Kidney Disease: <60 mL /min/1.73sq mKidney failure: <15 mL/min/1.73sq meGFR calculated using average adult body mass. Additional eGFR calculator available at:http://www.Blushr/multiple_crcl_2012.htmPerformed By: #### ERTPF, CONNER, LIP, LIVP, TEGCR ####[facility] [address]sg[address]hmhjdddz[address] [place] [address] Anion gap 3 molar conc11 mmol/LNormal9-17[facility] HospitalComment on above:Performed By: #### ERTPF, CONNER, LIP, LIVP, TEGCR ####[facility] [address] [place] [address] Chloride molar xysn892 mmol/FJbvq77-487DldxyWooster Community HospitalComment on above: Performed By: #### ERTPF, CONNER, LIP, LIVP, TEGCR ####[facility] V[address]zlbssckks[address] [place] [address] VU3 molar conc17 mmol/ECae62-25CwamlWooster Community HospitalComment on above:Performed By: #### ERTPF, CONNER, LIP, LIVP, TEGCR ####[facility] Zsfhgxauglbf[address] [place] [address] Glucose mass tbkb133 mg/jQYogg80-08GxikdSonoma Developmental CenterComment on above: Performed By: #### ERTPF, CONNER, LIP, LIVP, TEGCR ####[facility] [address] [place] [address] Potassium molar conc4.3 mmol/LNormal 3.7-5.3MSonoma Developmental CenterComment on above:Performed By: #### ERTPF, CONNER, LIP, LIVP, TEGCR ####[facility] [address]qlrkvj[address] [place] [address] Sodium molar sylw370 mmol/ZHbbyml705-590CaohhWooster Community HospitalComment on above:Performed By: #### ERTPF, CONNER, LIP, LIVP, TEGCR ####[address] [phone]/CRE Ratio NOT REPORTEDNormal9-20[facility] HospitalComment on above:Performed By: #### ERTPF, CONNER, LIP, LIVP, TEGCR ####[address] [phone]:NOT REPORTEDNormalWooster Community HospitalComment on above:Performed By: #### ERTPF, CONNER, LIP, LIVP, TEGCR ####[address] [address] (cont.)Normal [facility] HospitalComment on above:Result Comment: Average GFR for 50-59 years old: 93 mL/min/1.73sq mChronic Kidney Disease: <60 mL/min/1.73sq mKidney failure: <15 mL/min/1.73sq meGFR calculated using average adult body mass. Additional eGFR calculator available at:http://www.Blushr/multiple_crcl_2012.htmPerformed By: #### ERTPF, CONENR, LIP, LIVP, TEGCR ####[address] [address] Anion gap 3 molar conc14 mmol/LNormal9-17[facility] HospitalComment on above:Performed By: #### ERTPF, CONNER, LIP, LIVP, TEGCR ####[address] [phone] mass conc7.6 mg/dLLow8.6-10.4[facility] HospitalComment on above: Performed By: #### ERTPF, CONNER, LIP, LIVP, TEGCR ####[address] [place] [address] Chloride molar gvgw459 mmol/OTklc39-982 [facility] HospitalComment on above:Performed By: #### ERTPF, CONNER, LIP, LIVP, TEGCR ####[address] [address] PM5 molar conc18 mmol/BJai07-02ZxmllWooster Community Hospital Comment on above:Performed By: #### ERTPF, CONNER, LIP, LIVP, TEGCR ####[address] [address] Creatinine mass conc3.53 mg/dLHigh0.70-1.20[facility] HospitalComment on above:Performed By: #### ERTPF, CONNER, LIP, LIVP, TEGCR ####[address] [address] GFR, Amer22 mL/minLow>60[facility] HospitalComment on above:Performed By: #### ERTPF, CONNER, LIP, LIVP, TEGCR ####[address] [address] GFR,non Amer18 mL/minLow>60[facility] HospitalComment on above: Performed By: #### ERTPF, CONNER, LIP, LIVP, TEGCR ####[address] [address] Glucose mass wavi625 mg/jYPfjy85-66VmmflSonoma Developmental CenterComment on above:Performed By: #### ERTPF, CONNER, LIP, LIVP, TEGCR ####[address] [address] Potassium molar conc4.3 mmol/LNormal3.7-5.3MSonoma Developmental Center Comment on above:Performed By: #### ERTPF, CONNER, LIP, LIVP, TEGCR ####[facility] [address]bs[address]yrtpc[address] [place], [place] [phone] molar qwlk545 mmol/LKihl515-967DquckWooster Community HospitalComment on above:Performed By: #### ERTPF, CONNER, LIP, LIVP, TEGCR ####[facility] [address] [place], [place] [phone] nitrogen mass conc66 mg/dLHigh6-20[facility] HospitalComment on above:Performed By: #### ERTPF, CONNER, LIP, LIVP, TEGCR ####[facility] [address]tpkfezlpnvz[address] [place], [place] [phone] Bank Specimenon 91-83-1701Jtjqa Bank SpecimenNOT REPORTEDNormalWooster Community HospitalCBCon 32-13-4300Wwdrzyljcbm distribution width Auto Ratio (RBC) 18.7 %High11.8-14.4[facility] HospitalComment on above:Performed By: #### ERTPF, CONNER, LIP, LIVP, TEGCR ####[facility] [address] [place] [address] [phone] Auto Volume Fraction (Bld)18.8 %Low 40.7-50.3[facility] Hospital Of GardenaComment on above:Performed By: #### ERTPF, CONNER, LIP, LIVP, TEGCR ####Sarithay Zekotq[address]qiwbv[address] [place], [place] [phone] mass conc (Bld)5.5 g/dLCritically low13.0-17.0[facility] HospitalComment on above:Performed By: #### ERTPF, CONNER, LIP, LIVP, TEGCR ####[facility] [address]zmndnwe[address] [place] [address] MCH Auto Entitic mass (RBC)30.6 clOjxfxd57.2-33.5[facility] HospitalComment on above:Performed By: #### ERTPF, CONNER, LIP, LIVP, TEGCR ####[facility] [address] [place] [address] MCHC Auto mass conc (RBC)29.3 g/tLNuhlij86.4-34.8[facility] HospitalComment on above: Performed By: #### ERTPF, CONNER, LIP, LIVP, TEGCR ####[address] [address] MCV Auto Entitic volume (RBC)104.4 fLHigh 82.6-102.9[facility] HospitalComment on above:Performed By: #### ERTPF, CONNER, LIP, LIVP, TEGCR ####[place] [address] NRBC Automated1.3 per 100 WBCHigh0.0W[facility] HospitalComment on above:Performed By: #### ERTPF, CONNER, LIP, LIVP, TEGCR ####[place] [address] Platelet mean volume Auto Entitic volume (Bld)12.0 fLNormal8.1-13.5[facility] Comment on above:Performed By: #### ERTPF, CONNER, LIP, LIVP, TEGCR ####[place] [address] Platelets Auto #/vol (Bld)421 10*3/wGRuoneu651-140VnmukWooster Community HospitalComment on above: Performed By: #### ERTPF, CONNER, LIP, LIVP, TEGCR ####[address] [address] RBC Auto #/vol (Bld)1.80 10*6/uLLow 4.21-5.77[facility] HospitalComment on above:Performed By: #### ERTPF, CONNER, LIP, LIVP, TEGCR ####[facility] [address] [place] [address] WBC Auto #/vol (Bld)28.9 10*3/uLHigh3.5-11.3MSonoma Developmental CenterComment on above:Performed By: #### ERTPF, CONNER, LIP, LIVP, TEGCR ####Filomena Jam[address] [place] [address] [phone],Bloodon [phone],BloodSpecimen Description .BLOOD Special Requests RT ARM 2ML Culture NO GROWTH 6 DAYS Report Status FINAL 02/05/2018[facility] Barber[facility] CampusComment on above:Performed By: #### ERTPF, CONNER, LIP, LIVP, TEGCR ####Filomena [address] [place] [address] [phone],BloodSpecimen Description .BLOOD Special Requests RT ARM 5ML Culture NO GROWTH 6 DAYS Report Status FINAL 02/05/2018NoWhite HospitalComment on above:Performed By: #### ERTPF, CONNER, LIP, LIVP, TEGCR ####Filomena [address] [address] Hgb/Hcton [id number] Auto Volume Fraction (Bld)22.9 %Low40.7-50.3MSonoma Developmental CenterComment on above:Performed By: #### ERTPF, CONNER, LIP, LIVP, TEGCR ####[facility] [address] [place] [address] Hemoglobin mass conc (Bld)6.9 g/dLCritically low13.0-17.0[facility] HospitalComment on above:Performed By: #### ERTPF, CONNER, LIP, LIVP, TEGCR ####[facility] [address]frssmgsyz[address] [place] [address] TEG, Rapid Citratedon 39-06-9811JJJ TEG 89.0 ottTwcpac47-468NjocmWooster Community HospitalComment on above:Performed By: #### ERTPF, CONNER, LIP, LIVP, TEGCR ####[address] [address] Angle, Rapid TEG81.8 pgxAoqz82-12SwrazAvalon Municipal HospitalComment on above:Performed By: #### ERTPF, CONNER, LIP, LIVP, TEGCR ####[address] [address] EPL TEG 2.0 %Normal0.0-15.0[facility] HospitalComment on above:Performed By: #### ERTPF, CONNER, LIP, LIVP, TEGCR ####[address] [address] Heparin Therapy:NoneNormalMerAvalon Municipal HospitalComment on above:Performed By: #### ERTPF, CONNER, LIP, LIVP, TEGCR ####[address] [address] K (Kinetics) rTEG0.8 minLow1.0-2.0[facility] HospitalComment on above:Performed By: #### ERTPF, CONNER, LIP, LIVP, TEGCR ####[address] [address] KN74 (Lysis) TEG2.0 %Normal0-8MerAvalon Municipal HospitalComment on above:Performed By: #### ERTPF, CONNER, LIP, LIVP, TEGCR ####[address] [address] MA Rapid TEG 81.9 zaOjsm67-67HboiiWooster Community HospitalComment on above:Performed By: #### ERTPF, CONNER, LIP, LIVP, TEGCR ####[address] [address] R(Reaction Time)rTEG0.4 minNormal0.0-1.0[facility] HospitalComment on above:Performed By: #### ERTPF, CONNER, LIP, LIVP, TEGCR ####[facility] [address] [place] [address] TEG CommentACT is the only FDA approved component of the Rapid TEG.NormalWooster Community HospitalComment on above:Performed By: #### ERTPF, CONNER, LIP, LIVP, TEGCR ####Filomena [address]zhr[address] [place] [address] Type + Screen on [phone] + ScreenSample Expiration 02/08/2018 Arm Band Number BE [id number] ABO/Rh(D) A POSITIVE Antibody Screen NEGATIVE Unit Number [id number] Blood Component Type Leukocyte Reduced Red Cell Unit Division 00 Status of Unit TRANSFUSED Transfusion Status OK TO TRANSFUSE Crossmatch Result COMPATIBLE Unit Number [id number] Blood Component Type Leukocyte Reduced Red Cell Unit Division 00 Status of Unit TRANSFUSED Transfusion Status OK TO TRANSFUSE Crossmatch Result COMPATIBLENormalWooster Community HospitalComment on above:Performed By: #### ERTPF, CONNER, LIP, LIVP, TEGCR ####Filomena [address]ron[address] [place] [address] XR CHEST PORTABLEon 61-53-2667VP CHEST PORTABLEEXAMINATION:SINGLE XRAY VIEW OF THE CHEST02/05/2018 2:05 amCOMPARISON:02/03/2018HISTORY:ORDERING SYSTEM PROVIDED HISTORY: ET tube placementTECHNOLOGIST PROVIDED HISTORY:ET tube placementFINDINGS:An endotracheal tube has been placed in good position. Nasogastric tube isalso in good position. There regis right arm PICC line in good position.There is increasing perihilar and lower lobe airspace disease with smallright larger than left bilateral pleural effusions. The heart is borderlineenlarged.IMPRESSION: The endotracheal tube, nasogastric tube and right arm PICC line are in goodposition.Mildly increased bilateral perihilar and lower lobe airspace disease andincreasing small bilateral pleural effusions. Worsening pulmonary edemasuspected.Interpreted by:Jack Jones, MDSigned by:Jack Jones MD02/05/18Final resultNormalWooster Community HospitalAmmoniaon 02-04-2018 Ammonia mass conc (P)40 umol/VWvkkuw45-46VlxaqWooster Community HospitalComment on above:Performed By: #### ERTPF, CONNER, LIP, LIVP, TEGCR ####[facility] [address] [place] [address] Basic Metabolic Profon 39-50-5773DSB/CRE RatioNOT REPORTEDNormal9-20[facility] Comment on above:Performed By: #### ERTPF, CONNER, LIP, LIVP, TEGCR ####[facility] [address]cjzb[address] [place] [address] Staging:NOT REPORTED NormalWooster Community HospitalComment on above:Performed By: #### ERTPF, CONNER, LIP, LIVP, TEGCR ####[facility] Wpakdgbrpsdi[address] [place] [address] (cont.)NormalWooster Community HospitalComment on above: Result Comment: Average GFR for 50-59 years old: 93 mL/min/1.73sq mChronic Kidney Disease: <60 mL/min/1.73sq mKidney failure: <15 mL/min/1.73sq meGFR calculated using average adult body mass. Additional eGFR calculator available at:http://www.WePow.com/multiple_crcl_2012.htmPerformed By: #### ERTPF, CONNER, LIP, LIVP, TEGCR ####[facility] Cvocfesuxduq[address] [place] 43[address] Anion gap 3 molar conc12 mmol/LNormal9-17[facility] HospitalComment on above:Performed By: #### ERTPF, CONNER, LIP, LIVP, TEGCR ####[facility] Dnzefdzcmenf[address] [place] [address] Calcium mass conc7.8 mg/dLLow8.6-10.4W[facility] HospitalComment on above: Performed By: #### ERTPF, CONNER, LIP, LIVP, TEGCR ####[address] [address] Chloride molar srak795 mmol/OMoqn95-055 [facility] HospitalComment on above:Performed By: #### ERTPF, CONNER, LIP, LIVP, TEGCR ####[address] [address] AL6 molar conc18 mmol/VNyw61-44KeiuxWooster Community Hospital Comment on above:Performed By: #### ERTPF, CONNER, LIP, LIVP, TEGCR ####[address] [address] Creatinine mass conc3.52 mg/dLHigh0.70-1.20[facility] HospitalComment on above:Performed By: #### ERTPF, CONNER, LIP, LIVP, TEGCR ####[address] [address] GFR, Amer22 mL/minLow>60[facility] HospitalComment on above:Performed By: #### ERTPF, CONNER, LIP, LIVP, TEGCR ####[address] [address] GFR,non Amer18 mL/minLow>60[facility] Community HospitalComment on above: Performed By: #### ERTPF, CONNER, LIP, LIVP, TEGCR ####[address] [address] Glucose mass jpnk484 mg/zFVjqn38-40JyvsySonoma Developmental CenterComment on above:Performed By: #### ERTPF, CONNER, LIP, LIVP, TEGCR ####[place] [address] [place] [address] Potassium molar conc4.4 mmol/LNormal3.7-5.3[facility] Comment on above:Performed By: #### ERTPF, CONNER, LIP, LIVP, TEGCR ####[address] [address] Sodium molar wvem332 mmol/LWmvz826-358GidjiWooster Community HospitalComment on above:Performed By: #### ERTPF, CONNER, LIP, LIVP, TEGCR ####[place] [address] [place] [address] Urea nitrogen mass conc64 mg/dLHigh6-20[facility] HospitalComment on above:Performed By: #### ERTPF, CONNER, LIP, LIVP, TEGCR ####[address] [address] BUN/CRE Ratio NOT REPORTEDNoal9-20[facility] HospitalComment on above:Performed By: #### ERTPF, CONNER, LIP, LIVP, TEGCR ####[address] [address] Staging:NOT REPORTEDNormalWooster Community HospitalComment on above:Performed By: #### ERTPF, CONNER, LIP, LIVP, TEGCR ####[address] [address] (cont.)Normal [facility] HospitalComment on above:Result Comment: Average GFR for 50-59 years old: 93 mL/min/1.73sq mChronic Kidney Disease: <60 mL/min/1.73sq mKidney failure: <15 mL/min/1.73sq meGFR calculated using average adult body mass. Additional eGFR calculator available at:http://www.WePow.Fanergies/multiple_crcl_2012.htmPerformed By: #### ERTPF, CONNER, LIP, LIVP, TEGCR ####[facility] [address] [place] 43[address] Anion gap 3 molar conc13 mmol/LNormal9-17[facility] HospitalComment on above:Performed By: #### ERTPF, CONNER, LIP, LIVP, TEGCR ####[facility] [address]okmtbkdk[address] [place] [address] Calcium mass conc7.5 mg/dLLow8.6-10.4W[facility] HospitalComment on above: Performed By: #### ERTPF, CONNER, LIP, LIVP, TEGCR ####[address] [address] Chloride molar uxvx287 mmol/DPsij37-260 [facility] HospitalComment on above:Performed By: #### ERTPF, CONNER, LIP, LIVP, TEGCR ####[place] [address] [place] 43[address] AJ1 molar conc19 mmol/HYgn83-79MvfovWooster Community Hospital Comment on above:Performed By: #### ERTPF, CONNER, LIP, LIVP, TEGCR ####[address] [address] Creatinine mass conc3.36 mg/dLHigh0.70-1.20[facility] HospitalComment on above:Performed By: #### ERTPF, CONNER, LIP, LIVP, TEGCR ####[place] [address] [place] [address] GFR, Amer23 mL/minLow>60[facility] HospitalComment on above:Performed By: #### ERTPF, CONNER, LIP, LIVP, TEGCR ####[place] [address] [place] [address] GFR,non Amer19 mL/minLow>60[facility] HospitalComment on above: Performed By: #### ERTPF, CONNER, LIP, LIVP, TEGCR ####[facility] Zofcttdlbvvj[address] [place] [address] Glucose mass doys744 mg/aBLoax34-54RdinhSonoma Developmental CenterComment on above:Performed By: #### ERTPF, CONNER, LIP, LIVP, TEGCR ####[facility] [address]ter[address] [place] [address] Potassium molar conc4.4 mmol/LNormal3.7-5.3MSonoma Developmental Center Comment on above:Performed By: #### ERTPF, CONNER, LIP, LIVP, TEGCR ####[address] [address] Sodium molar skux430 mmol/POduo060-694DuhhfWooster Community HospitalComment on above:Performed By: #### ERTPF, CONNER, LIP, LIVP, TEGCR ####[facility] [address]omktjtpl[address] [place] [address] Urea nitrogen mass conc61 mg/dLHigh6-20[facility] HospitalComment on above:Performed By: #### ERTPF, CONNER, LIP, LIVP, TEGCR ####[address] [address] BUN/CRE Ratio NOT REPORTEDNormal9-20[facility] HospitalComment on above:Performed By: #### ERTPF, CONNER, LIP, LIVP, TEGCR ####[facility] Fcsxqtavrvgz[address] [place] [address] Staging:NOT REPORTEDNormalWooster Community HospitalComment on above:Performed By: #### ERTPF, CONNER, LIP, LIVP, TEGCR ####[facility] [address] [place] [address] (cont.)Normal [facility] HospitalComment on above:Result Comment: Average GFR for 50-59 years old: 93 mL/min/1.73sq mChronic Kidney Disease: <60 mL/min/1.73sq mKidney failure: <15 mL/min/1.73sq meGFR calculated using average adult body mass. Additional eGFR calculator available at:http://www.Blushr/multiple_crcl_2012.htmPerformed By: #### ERTPF, CONNER, LIP, LIVP, TEGCR ####[place] [address] [place] 43[address] Anion gap 3 molar conc15 mmol/LNormal9-17[facility] HospitalComment on above:Performed By: #### ERTPF, CONNER, LIP, LIVP, TEGCR ####[address] [address] Calcium mass conc7.5 mg/dLLow8.6-10.4[facility] HospitalComment on above: Performed By: #### ERTPF, CONNER, LIP, LIVP, TEGCR ####[address] [address] Chloride molar xcuf169 mmol/CZfog76-811 [facility] HospitalComment on above:Performed By: #### ERTPF, CONNER, LIP, LIVP, TEGCR ####[place] [address] [place] 43[address] QG7 molar conc17 mmol/AXrf06-11SmmkiWooster Community Hospital Comment on above:Performed By: #### ERTPF, CONNER, LIP, LIVP, TEGCR ####[address] [address] Creatinine mass conc3.20 mg/dLHigh0.70-1.20[facility] HospitalComment on above:Performed By: #### ERTPF, CONNER, LIP, LIVP, TEGCR ####[facility] [address]uf[address]ptvyaj[address] [place] [address] GFR, Amer24 mL/minLow>60[facility] HospitalComment on above:Performed By: #### ERTPF, CONNER, LIP, LIVP, TEGCR ####[facility] Ledfsaceivys[address] [place] [address] GFR,non Amer20 mL/minLow>60MerAvalon Municipal HospitalComment on above: Performed By: #### ERTPF, CONNER, LIP, LIVP, TEGCR ####[facility] Hxlcpjhxrhul[address] [place] [address] Glucose mass gqdh624 mg/mZYdrm08-23RwrzdKindred HospitalComment on above:Performed By: #### ERTPF, CONNER, LIP, LIVP, TEGCR ####[facility] [address]fp[address]vfr[address] [place] [address] Potassium molar conc4.4 mmol/LNormal3.7-5.3Mgreene memorial hospitaly [facility] Comment on above:Performed By: #### ERTPF, CONNER, LIP, LIVP, TEGCR ####[facility] [address]se[address] [place] [address] Sodium molar flrc208 mmol/VZcux699-796CiejhWooster Community HospitalComment on above:Performed By: #### ERTPF, CONNER, LIP, LIVP, TEGCR ####[facility] [address]fctvbdlpdae[address] [place] [address] Urea nitrogen mass conc57 mg/dLHigh6-20[facility] HospitalComment on above:Performed By: #### ERTPF, CONNER, LIP, LIVP, TEGCR ####[facility] Cfcy[address]zeedio[address] [place] [address] BUN/CRE Ratio NOT REPORTEDNormal9-20[facility] HospitalComment on above:Performed By: #### ERTPF, CONNER, LIP, LIVP, TEGCR ####[address] [address] Staging:NOT REPORTEDNormalWooster Community HospitalComment on above:Performed By: #### ERTPF, CONNER, LIP, LIVP, TEGCR ####[address] [phone] 70-22-7368Nqbthqekzmy distribution width Auto Ratio (RBC)18.7 %High11.8-14.4 [facility] HospitalComment on above:Performed By: #### ERTPF, CONNER, LIP, LIVP, TEGCR ####[address] [address] Hematocrit Auto Volume Fraction (Bld)24.4 %Low40.7-50.3MSonoma Developmental CenterComment on above:Performed By: #### ERTPF, CONNER, LIP, LIVP, TEGCR ####[address] [address] Hemoglobin mass conc (Bld)7.0 g/dLCritically low13.0-17.0[facility] HospitalComment on above:Performed By: #### ERTPF, CONNER, LIP, LIVP, TEGCR ####[address] [phone] Auto Entitic mass (RBC)30.3 wxBuycmw84.2-33.5[facility] HospitalComment on above:Performed By: #### ERTPF, CONNER, LIP, LIVP, TEGCR ####[address] [phone] Auto mass conc (RBC)28.7 g/zFYkbfqw22.4-34.8[facility] HospitalComment on above: Performed By: #### ERTPF, CONNER, LIP, LIVP, TEGCR ####[facility] [address]mffagptnaa[address] [place] [address] MCV Auto Entitic volume (RBC)105.6 fLHigh 82.6-102.9[facility] HospitalComment on above:Performed By: #### ERTPF, CONNER, LIP, LIVP, TEGCR ####[place] [address] NRBC Automated2.0 per 100 WBCHigh0.0W[facility] HospitalComment on above:Performed By: #### ERTPF, CONNER, LIP, LIVP, TEGCR ####[place] [address] Platelet mean volume Auto Entitic volume (Bld)12.0 fLNormal8.1-13.5[facility] Comment on above:Performed By: #### ERTPF, CONNER, LIP, LIVP, TEGCR ####[place] [address] Platelets Auto #/vol (Bld)433 10*3/yRWtqpda276-725PdnkmWooster Community HospitalComment on above: Performed By: #### ERTPF, CONNER, LIP, LIVP, TEGCR ####[place] [address] RBC Auto #/vol (Bld)2.31 10*6/uLLow 4.21-5.77[facility] HospitalComment on above:Performed By: #### ERTPF, CONNER, LIP, LIVP, TEGCR ####[address] [address] WBC Auto #/vol (Bld)31.9 10*3/uLCritically high3.5-11.3MercKindred HospitalComment on above:Performed By: #### ERTPF, CONNER, LIP, LIVP, TEGCR ####[facility] [address] [place] [address] Creatinine,Random Uron 53-25-1638Tppsuhynua mass conc50.3 mg/zILtkflz86.0-259.0 [facility] HospitalComment on above:Performed By: #### ERTPF, CONNER, LIP, LIVP, TEGCR ####[address] [address] Cult,Aerobe/Anaerobeon 84-23-4507Dyvm,Aerobe/AnaerobeSpecimen Description .ABDOMEN .DRAINAGE SWABSpecial Requests NOT REPORTEDDirect Exam MANY NEUTROPHILS NO BACTERIA SEEN Culture NO GROWTH 5 DAYSReport Status FINAL 02/04/2018NormalWooster Community HospitalComment on above:Performed By: #### ERTPF, CONNER, LIP, LIVP, TEGCR ####[address] [address] Lactate, Sepsison 90-87-5241Vnzbeu Acid,Sep Wbld1.1 mmol/L Normal0.5-1.9[facility] HospitalComment on above:Performed By: #### ERTPF, CONNER, LIP, LIVP, TEGCR ####[address] [address] Lactic Acid, SepsisNOT REPORTEDNormal0.5-1.9[facility] HospitalComment on above:Performed By: #### ERTPF, CONNER, LIP, LIVP, TEGCR ####[address] [phone] Profile on 24-63-6818Tqppbdu mass conc1.9 g/dLLow3.5-5.2Mgreene memorial hospitaly [facility] Comment on above:Performed By: #### ERTPF, CONNER, LIP, LIVP, TEGCR ####[address] [address] Albumin/Globulin mass ratio0.5 {ratio}Low1.0-2.5[facility] HospitalComment on above: Performed By: #### ERTPF, CONNER, LIP, LIVP, TEGCR ####[address] [address] Alkaline Phos80 U/ATtkena96-913RibnzWooster Community HospitalComment on above:Performed By: #### ERTPF, CONNER, LIP, LIVP, TEGCR ####[address] [address] ALT enzyme act/vol15 U/LNormal5-41[facility] HospitalComment on above: Performed By: #### ERTPF, CONNER, LIP, LIVP, TEGCR ####[address] [address] AST enzyme act/vol39 U/LNormal<40[facility] HospitalComment on above:Performed By: #### ERTPF, CONNER, LIP, LIVP, TEGCR ####[address] [address] Bilirubin Ql (U)0.46 mg/dLNormal0.3-1.2MSonoma Developmental CenterComment on above:Performed By: #### ERTPF, CONNER, LIP, LIVP, TEGCR ####[address] [address] Bilirubin, Indirect0.18 mg/dLNormal0.00-1.00[facility] HospitalComment on above:Performed By: #### ERTPF, CONNER, LIP, LIVP, TEGCR ####[address] [address] Bilirubin.direct mass conc0.28 mg/dLNormal<0.31 [facility] HospitalComment on above:Performed By: #### ERTPF, CONNER, LIP, LIVP, TEGCR ####[facility] [address]xcrfll[address] [place] 43[address] Protein mass conc6.1 g/dLLow6.4-8.3MSonoma Developmental CenterComment on above:Performed By: #### ERTPF, CONNER, LIP, LIVP, TEGCR ####[facility] Rzpssfjtundc[address] [place] [address] Globulin Calculated mass conc (S)NOT REPORTEDNormal1.5-3.8[facility] HospitalComment on above:Performed By: #### ERTPF, CONNER, LIP, LIVP, TEGCR ####[facility] [address]uz[address]igpu[address] [place] [address] Osmolalityon 02-04-2018 Zcgypfldcl710 mOsm/kgCritically ihny869-278WcxjzWooster Community Hospital Comment on above:Performed By: #### ERTPF, CONNER, LIP, LIVP, TEGCR ####Filomena K[address]alf[address] [place] [address] Osmolality, Urineon 68-65-9818Fdhetidhqh - Ymvek983 mOsm/cxAigtib28-9126RwpweWooster Community HospitalComment on above:Performed By: #### ERTPF, CONNER, LIP, LIVP, TEGCR ####Saritha [address] [place] [address] Sodium, Random Uron 32-18-9047Qi Conc. Urine26 mmol/LNormalWooster Community HospitalComment on above:Result Comment: No normal range established.Performed By: #### ERTPF, CONNER, LIP, LIVP, TEGCR ####[facility] Rx[address]lpowhgy[address] [place] 43[address] [phone] Metabolic Profon 02-03-2018(cont.)NormalWooster Community HospitalComment on above:Result Comment: Average GFR for 50-59 years old: 93 mL/min/1.73sq mChronic Kidney Disease: <60 mL/min/1.73sq mKidney failure: <15 mL/min/1.73sq meGFR calculated using average adult body mass. Additional eGFR calculator available at:http://www.Blushr/multiple_crcl_2012.htmPerformed By: #### ERTPF, CONNER, LIP, LIVP, TEGCR ####[facility] Z[address] [place] [address] Anion gap 3 molar conc5 mmol/LLow9-17[facility] HospitalComment on above:Performed By: #### ERTPF, CONNER, LIP, LIVP, TEGCR ####[place] [place] [address] Calcium mass conc7.4 mg/dLLow8.6-10.4[facility] HospitalComment on above: Performed By: #### ERTPF, CONNER, LIP, LIVP, TEGCR ####[place] [address] [place] [address] Chloride molar tbnz636 mmol/MDbgz97-863 [facility] HospitalComment on above:Performed By: #### ERTPF, CONNER, LIP, LIVP, TEGCR ####[place] [address] [place] 43[address] BK6 molar conc20 mmol/RVrfwzw42-43XxrjfWooster Community Hospital Comment on above:Performed By: #### ERTPF, CONNER, LIP, LIVP, TEGCR ####[address] [place] [address] Creatinine mass conc1.94 mg/dLHigh0.70-1.20[facility] HospitalComment on above:Performed By: #### ERTPF, CONNER, LIP, LIVP, TEGCR ####[address] [place] [address] GFR, Amer43 mL/minLow>60MerAvalon Municipal HospitalComment on above:Performed By: #### ERTPF, CONNER, LIP, LIVP, TEGCR ####[facility] [address]swdmtuhgwaq[address] [place] [address] GFR,non Amer36 mL/minLow>60MerAvalon Municipal HospitalComment on above: Performed By: #### ERTPF, CONNER, LIP, LIVP, TEGCR ####[facility] Thlktwufsele[address] [place] [address] Glucose mass hbyw576 mg/vJSule68-50Nkwke Memorial Hospital Of GardenaComment on above:Performed By: #### ERTPF, CONNER, LIP, LIVP, TEGCR ####[facility] [address] [place] [address] Potassium molar conc4.1 mmol/LNormal3.7-5.3MercKindred Hospital Comment on above:Performed By: #### ERTPF, CONNER, LIP, LIVP, TEGCR ####[facility] [address] [place] [address] Sodium molar qwby017 mmol/SQxqa269-256JlyzfWooster Community HospitalComment on above:Performed By: #### ERTPF, CONNER, LIP, LIVP, TEGCR ####[facility] [address]quq[address] [place] [address] Urea nitrogen mass conc34 mg/dLHigh6-20[facility] HospitalComment on above:Performed By: #### ERTPF, CONNER, LIP, LIVP, TEGCR ####[facility] [address] [place] [address] BUN/CRE Ratio NOT REPORTEDNormal9-20[facility] HospitalComment on above:Performed By: #### ERTPF, CONNER, LIP, LIVP, TEGCR ####[facility] [address] [place] [address] Staging:NOT REPORTEDNormalWooster Community HospitalComment on above:Performed By: #### ERTPF, CONNER, LIP, LIVP, TEGCR ####[facility] [place] [address] (cont.)Normal [facility] HospitalComment on above:Result Comment: Average GFR for 50-59 years old: 93 mL/min/1.73sq mChronic Kidney Disease: <60 mL/min/1.73sq mKidney failure: <15 mL/min/1.73sq meGFR calculated using average adult body mass. Additional eGFR calculator available at:http://www.Blushr/multiple_crcl_2012.htmPerformed By: #### ERTPF, CONNER, LIP, LIVP, TEGCR ####[place] [address] Anion gap 3 molar conc14 mmol/LNormal9-17[facility] HospitalComment on above:Performed By: #### ERTPF, CONNER, LIP, LIVP, TEGCR ####[place] [address] Calcium mass conc7.7 mg/dLLow8.6-10.4[facility] HospitalComment on above: Performed By: #### ERTPF, CONNER, LIP, LIVP, TEGCR ####[facility] [address] [place] [address] Chloride molar qabn762 mmol/NWqfm32-820 [facility] HospitalComment on above:Performed By: #### ERTPF, CONNER, LIP, LIVP, TEGCR ####[place] [address] [place] [address] [phone] molar conc20 mmol/QWmdcef07-93WrtunWooster Community Hospital Comment on above:Performed By: #### ERTPF, CONNER, LIP, LIVP, TEGCR ####[facility] [address]qdzhpkmohpm[address] [place] [address] Creatinine mass conc1.72 mg/dLHigh0.70-1.20[facility] HospitalComment on above:Performed By: #### ERTPF, CONNER, LIP, LIVP, TEGCR ####[facility] [address]cyrazpkrig[address] [place] [address] GFR, Amer50 mL/minLow>60MerAvalon Municipal HospitalComment on above:Performed By: #### ERTPF, CONNER, LIP, LIVP, TEGCR ####[facility] [address]hsp[address] [place] [address] GFR,non Amer41 mL/minLow>60[facility] HospitalComment on above: Performed By: #### ERTPF, CONNER, LIP, LIVP, TEGCR ####[facility] [address] [place] [address] Glucose mass hzjn601 mg/iOPcgm92-85Kbxpm [facility] GardenaComment on above:Performed By: #### ERTPF, CONNER, LIP, LIVP, TEGCR ####[facility] [address]xczuodf[address] [place] [address] Potassium molar conc4.5 mmol/LNormal3.7-5.3Mgreene memorial hospitaly [facility] Comment on above:Performed By: #### ERTPF, CONNER, LIP, LIVP, TEGCR ####[facility] [address] [place] [address] Sodium molar evea979 mmol/TZocl282-364XjozoWooster Community HospitalComment on above:Performed By: #### ERTPF, CONNER, LIP, LIVP, TEGCR ####[facility] [address] [place] [address] Urea nitrogen mass conc30 mg/dLHigh6-20[facility] HospitalComment on above:Performed By: #### ERTPF, CONNER, LIP, LIVP, TEGCR ####[address] [id number]/CRE Ratio NOT REPORTEDNormal9-20[facility]oster [facility] HospitalComment on above:Performed By: #### ERTPF, CONNER, LIP, LIVP, TEGCR ####[address] [phone]:NOT REPORTEDNormalWooster Community HospitalComment on above:Performed By: #### ERTPF, CONNER, LIP, LIVP, TEGCR ####[address] [phone] 86-08-5589Poaizqhjdih distribution width Auto Ratio (RBC)18.5 %High11.8-14.4 [facility] HospitalComment on above:Performed By: #### ERTPF, CONNER, LIP, LIVP, TEGCR ####[address] [address] Hematocrit Auto Volume Fraction (Bld)27.9 %Low40.7-50.3MSonoma Developmental CenterComment on above:Performed By: #### ERTPF, CONNER, LIP, LIVP, TEGCR ####[address] [address] Hemoglobin mass conc (Bld)7.6 g/dLLow13.0-17.0[facility] Comment on above:Performed By: #### ERTPF, CONNER, LIP, LIVP, TEGCR ####[address] [phone] Auto Entitic mass (RBC)30.3 qvIigpsc62.2-33.5[facility] HospitalComment on above: Performed By: #### ERTPF, CONNER, LIP, LIVP, TEGCR ####[address] [address] MCHC Auto mass conc (RBC)27.2 g/dLLow 28.4-34.8[facility] HospitalComment on above:Performed By: #### ERTPF, CONNER, LIP, LIVP, TEGCR ####[address] [address] MCV Auto Entitic volume (RBC)111.2 kMDhfd44.6-102.9[facility] HospitalComment on above:Performed By: #### ERTPF, CONNER, LIP, LIVP, TEGCR ####[place] [address] NRBC Automated1.0 per 100 WBCHigh0.0[facility] HospitalComment on above: Performed By: #### ERTPF, CONNER, LIP, LIVP, TEGCR ####[place] [address] Platelet mean volume Auto Entitic volume (Bld)11.3 fLNormal8.1-13.5[facility] HospitalComment on above: Performed By: #### ERTPF, CONNER, LIP, LIVP, TEGCR ####[address] [address] Platelets Auto #/vol (Bld)533 10*3/uLHigh 138-453[facility] HospitalComment on above:Performed By: #### ERTPF, CONNER, LIP, LIVP, TEGCR ####[place] [address] RBC Auto #/vol (Bld)2.51 10*6/uLLow4.21-5.77[facility] HospitalComment on above:Performed By: #### ERTPF, CONNER, LIP, LIVP, TEGCR ####[address] [address] WBC Auto #/vol (Bld)33.5 10*3/uLCritically high3.5-11.3MSonoma Developmental CenterComment on above:Performed By: #### ERTPF, CONNER, LIP, LIVP, TEGCR ####[place] [phone] distribution width Auto Ratio (RBC)18.2 %High11.8-14.4[facility] Comment on above:Performed By: #### ERTPF, CONNER, LIP, LIVP, TEGCR ####[place] [address] Hematocrit Auto Volume Fraction (Bld)29.0 %Low40.7-50.3MSonoma Developmental CenterComment on above:Performed By: #### ERTPF, OCNNER, LIP, LIVP, TEGCR ####[place] [address] Hemoglobin mass conc (Bld)8.1 g/dLLow 13.0-17.0[facility] HospitalComment on above:Performed By: #### ERTPF, CONNER, LIP, LIVP, TEGCR ####[address] [address] MCH Auto Entitic mass (RBC)30.5 akSfbbmq55.2-33.5[facility] HospitalComment on above:Performed By: #### ERTPF, CONNER, LIP, LIVP, TEGCR ####[address] [address] MCHC Auto mass conc (RBC)27.9 g/dLLow28.4-34.8[facility] HospitalComment on above:Performed By: #### ERTPF, CONNER, LIP, LIVP, TEGCR ####[address] [address] MCV Auto Entitic volume (RBC)109.0 gPJxtn43.6-102.9[facility] HospitalComment on above: Performed By: #### ERTPF, CONNER, LIP, LIVP, TEGCR ####[facility] [address] [address] NRBC Automated1.6 per 100 WBCHigh0.0W[facility] Community HospitalComment on above:Performed By: #### ERTPF, CONNER, LIP, LIVP, TEGCR ####[address] [address] Platelet mean volume Auto Entitic volume (Bld)11.1 fLNormal8.1-13.5[facility] HospitalComment on above:Performed By: #### ERTPF, CONNER, LIP, LIVP, TEGCR ####[address] [address] Platelets Auto #/vol (Bld)576 10*3/mHRzob250-251PpgclWooster Community Hospital Comment on above:Performed By: #### ERTPF, CONNER, LIP, LIVP, TEGCR ####[address] [address] RBC Auto #/vol (Bld)2.66 10*6/uLLow4.21-5.77[facility] HospitalComment on above:Performed By: #### ERTPF, CONNER, LIP, LIVP, TEGCR ####[address] [address] WBC Auto #/vol (Bld)30.0 10*3/uLHigh3.5-11.3 [facility] HospitalComment on above:Performed By: #### ERTPF, CONNER, LIP, LIVP, TEGCR ####[address] [address] [phone],Bloodon 53-28-6972Xutx,BloodSpecimen Description .BLOOD Special Requests RT FOREARM 6 ML Culture NO GROWTH 6 DAYS Report Status FINAL 02/03/2018[facility] CampusComment on above:Performed By: #### ERTPF, CONNER, LIP, LIVP, TEGCR ####[address] [address] Cult,BloodSpecimen Description .BLOOD Special Requests 1ML RT HAND Culture NO GROWTH 6 DAYS Report Status FINAL 02/03/2018[facility] CampusComment on above:Performed By: #### ERTPF, CONNER, LIP, LIVP, TEGCR ####[address] [phone] Acid,Whole Blon 82-49-0559Nxkrfa Acid,Whole Bl2.0 mmol/LNormal0.7-2.1[facility] Hospital Of GardenaComment on above:Performed By: #### ERTPF, CONNER, LIP, LIVP, TEGCR ####[facility] [address] [place] [phone] 06-43-2167Fmciluspd mass conc2.1 mg/dLNormal1.6-2.6MSonoma Developmental CenterComment on above: Performed By: #### ERTPF, CONNER, LIP, LIVP, TEGCR ####[facility] [address] [place] [address] Magnesium mass conc2.4 mg/dLNormal1.6-2.6 [facility] HospitalComment on above:Performed By: #### ERTPF, CONNER, LIP, LIVP, TEGCR ####[address] [place] 43[address] NA (Sodium)on 98-62-4647Ffqwbo molar jiyu428 mmol/VReoc335-798 [facility] HospitalComment on above:Performed By: #### ERTPF, CONNER, LIP, LIVP, TEGCR ####[facility] [address] [place] [address] Sodium molar lddv623 mmol/WAigt620-489BcsmbWooster Community HospitalComment on above:Performed By: #### ERTPF, CONNER, LIP, LIVP, TEGCR ####[facility] [address] [place] [address] Phosphorus, Inorg.on 18-42-8664Ikbldacjuu, Inorg.2.0 mg/dLLow2.5-4.5[facility] Comment on above:Performed By: #### ERTPF, CONNER, LIP, LIVP, TEGCR ####[facility] [address] [place], [place] [phone], Inorg.3.2 mg/dLNormal2.5-4.5[facility] HospitalComment on above:Performed By: #### ERTPF, CONNER, LIP, LIVP, TEGCR ####[facility] [address] [place], [place] [phone] CHEST PORTABLEon 86-72-6461LS CHEST PORTABLE EXAMINATION:SINGLE XRAY VIEW OF THE CHEST02/03/2018 1:13 amCOMPARISON:February 01, 2018HISTORY:ORDERING SYSTEM PROVIDED HISTORY: Hypotension/AMSTECHNOLOGIST PROVIDED HISTORY:Hypotension/AMSFINDINGS:Right PICC tip terminates over the lower SVC. Enteric tube tip coils withinthe left upper abdominal quadrant. Enlarged cardiac silhouette. Bibasilarhazy opacities with blunted costophrenic angles and obscured diaphragm.Central pulmonary vascular congestion with increased perihilar interstitialopacities.No pneumothorax. Stable osseous structures.IMPRESSION: Mild pulmonary interstitial edema, small bilateral pleural effusions andbasilar consolidation, progressed since February 01, 2018.Stable support tubes and lines.Interpreted by:NADEGE Romeroigned by:Ramakrishna Santana MD02/03/18inal resultNormalWooster Community Hospital Basic Metabolic Profon 02-02-2018(cont.)NormalWooster Community Hospital Comment on above:Result Comment: Average GFR for 50-59 years old: 93 mL/min/1.73sq mChronic Kidney Disease: <60 mL/min/1.73sq mKidney failure: <15 mL/min/1.73sq meGFR calculated using average adult body mass. Additional eGFR calculator available at:http://www.WePow.Fanergies/multiple_crcl_2012.htmPerformed By: #### ERTPF, CONNER, LIP, LIVP, TEGCR ####[facility] [address] [place] [address] Anion gap 3 molar conc14 mmol/LNormal9-17[facility] HospitalComment on above:Performed By: #### ERTPF, CONNER, LIP, LIVP, TEGCR ####[facility] [address] [place] [address] Calcium mass conc7.6 mg/dLLow8.6-10.4[facility] Community HospitalComment on above:Performed By: #### ERTPF, CONNER, LIP, LIVP, TEGCR ####[facility] [address] [place] [address] Chloride molar fymg991 mmol/DGbdk52-671 [facility] HospitalComment on above:Performed By: #### ERTPF, CONNER, LIP, LIVP, TEGCR ####[facility] [address] [place] 43[address] IX2 molar conc20 mmol/NNoisgi33-72UhswvWooster Community Hospital Comment on above:Performed By: #### ERTPF, CONNER, LIP, LIVP, TEGCR ####[facility] [address] [place] [address] Creatinine mass conc1.57 mg/dLHigh0.70-1.20[facility] HospitalComment on above:Performed By: #### ERTPF, CONNER, LIP, LIVP, TEGCR ####[facility] [address] [place] [address] GFR, Amer55 mL/minLow>60[facility] Community HospitalComment on above:Performed By: #### ERTPF, CONNER, LIP, LIVP, TEGCR ####[facility] [address] [place] [address] GFR,non Amer46 mL/minLow>60MerAvalon Municipal HospitalComment on above: Performed By: #### ERTPF, CONNER, LIP, LIVP, TEGCR ####[facility] [address] [place] [address] Glucose mass aorl410 mg/uFNdur79-14Eafpu [facility] Hospital Of GardenaComment on above:Performed By: #### ERTPF, CONNER, LIP, LIVP, TEGCR ####[address] [address] Potassium molar conc3.8 mmol/LNormal3.7-5.3Mgreene memorial hospitaly [facility] Comment on above:Performed By: #### ERTPF, CONNER, LIP, LIVP, TEGCR ####[facility] [address] [place] [address] Sodium molar eqzf945 mmol/UWchy970-882PpfpiWooster Community HospitalComment on above:Performed By: #### ERTPF, CONNER, LIP, LIVP, TEGCR ####[facility] [address] [place] [address] Urea nitrogen mass conc30 mg/dLHigh6-20[facility] HospitalComment on above:Performed By: #### ERTPF, CONNER, LIP, LIVP, TEGCR ####[facility] [address]uv[address] [place] [address] BUN/CRE Ratio NOT REPORTEDNormal9-20[facility] HospitalComment on above:Performed By: #### ERTPF, CONNER, LIP, LIVP, TEGCR ####[address] [address] Staging:NOT REPORTEDNormalWooster Community HospitalComment on above:Performed By: #### ERTPF, CONNER, LIP, LIVP, TEGCR ####[address] [phone] 29-47-1303Qjcgspcdnni distribution width Auto Ratio (RBC)18.4 %High11.8-14.4 [facility] HospitalComment on above:Performed By: #### ERTPF, CONNER, LIP, LIVP, TEGCR ####[address] [address] Hematocrit Auto Volume Fraction (Bld)29.2 %Low40.7-50.3MSonoma Developmental CenterComment on above:Performed By: #### ERTPF, CONNER, LIP, LIVP, TEGCR ####[address] [address] Hemoglobin mass conc (Bld)8.3 g/dLLow13.0-17.0[facility] Comment on above:Performed By: #### ERTPF, CONNER, LIP, LIVP, TEGCR ####[address] [address] MCH Auto Entitic mass (RBC)30.1 mgYlpwxf26.2-33.5[facility] HospitalComment on above: Performed By: #### ERTPF, CONNER, LIP, LIVP, TEGCR ####[address] [address] MCHC Auto mass conc (RBC)28.4 g/dLNormal 28.4-34.8[facility] HospitalComment on above:Performed By: #### ERTPF, CONNER, LIP, LIVP, TEGCR ####[facility] [address] [place] [address] MCV Auto Entitic volume (RBC)105.8 eLLedg03.6-102.9[facility] HospitalComment on above:Performed By: #### ERTPF, CONNER, LIP, LIVP, TEGCR ####[place] [address] NRBC Automated1.1 per 100 WBCHigh0.0W[facility] Community HospitalComment on above: Performed By: #### ERTPF, CONNER, LIP, LIVP, TEGCR ####[place] [address] Platelet mean volume Auto Entitic volume (Bld)11.0 fLNormal8.1-13.5[facility] HospitalComment on above: Performed By: #### ERTPF, CONNER, LIP, LIVP, TEGCR ####[place] [address] Platelets Auto #/vol (Bld)675 10*3/uLHigh 138-453W[facility] Community HospitalComment on above:Performed By: #### ERTPF, CONNER, LIP, LIVP, TEGCR ####[place] [address] RBC Auto #/vol (Bld)2.76 10*6/uLLow4.21-5.77[facility] HospitalComment on above:Performed By: #### ERTPF, CONNER, LIP, LIVP, TEGCR ####[place] [phone] Auto #/vol (Bld)31.5 10*3/uLCritically high3.5-11.3MSonoma Developmental CenterComment on above:Performed By: #### ERTPF, CONNER, LIP, LIVP, TEGCR ####[address] [place] [address] Calcium, Ionicon 50-39-6505Drxuetp mass conc1.11 mmol/LLow1.13-1.33[facility] HospitalComment on above:Performed By: #### ERTPF, CONNER, LIP, LIVP, TEGCR ####[facility] [address] [place] [address] Creatinine,Random Uron 57-94-0867Sbldwmgopc mass conc48.7 mg/xQNsgpob24.0-259.0[facility] HospitalComment on above:Performed By: #### ERTPF, CONNER, LIP, LIVP, TEGCR ####[address] [address] NA (Sodium)on 99-82-2627Oyqrws molar wcym958 mmol/LCritically vwzw582-801XjqcfWooster Community HospitalComment on above:Performed By: #### ERTPF, CONNER, LIP, LIVP, TEGCR ####[address] [address] Sodium molar xisu570 mmol/EIrza205-636KvawrWooster Community HospitalComment on above: Performed By: #### ERTPF, CONNER, LIP, LIVP, TEGCR ####[address] [address] Sodium molar xpfm658 mmol/VBcrf372-918 [facility] HospitalComment on above:Performed By: #### ERTPF, CONNER, LIP, LIVP, TEGCR ####[address] [address] Osmolalityon 57-88-5382Dvzzjdtowz680 mOsm/kgCritically szvx632-668 [facility] HospitalComment on above:Result Comment: ADDED ON Performed By: #### ERTPF, CONNER, LIP, LIVP, TEGCR ####[facility] [address] [place] [address] Osmolality, Urineon 05-63-5927Yvovhqener - Fhtfv104 mOsm/vrGuncjk25-7941DpczfWooster Community HospitalComment on above: Performed By: #### ERTPF, CONNER, LIP, LIVP, TEGCR ####[facility] [address] [place], [place] [phone], Random Uron 97-74-3244Vz Conc. Urine38 mmol/LNormalWooster Community HospitalComment on above:Result Comment: No normal range established.Performed By: #### ERTPF, CONNER, LIP, LIVP, TEGCR ####[facility] [address] [place], [place] [phone] Metabolic Profon 02-01-2018(cont.)NormalWooster Community HospitalComment on above:Result Comment: Average GFR for 50-59 years old: 93 mL/min/1.73sq mChronic Kidney Disease: <60 mL/min/1.73sq mKidney failure: <15 mL/min/1.73sq meGFR calculated using average adult body mass. Additional eGFR calculator available at:http://www.Blushr/multiple_crcl_2012.htmPerformed By: #### ERTPF, CONNER, LIP, LIVP, TEGCR ####[facility] [address] [place], [place] [phone] gap 3 molar conc15 mmol/LNormal9-17[facility] HospitalComment on above:Performed By: #### ERTPF, CONNER, LIP, LIVP, TEGCR ####[address]ie [address] [place], [place] [phone] mass conc7.6 mg/dLLow8.6-10.4[facility] HospitalComment on above: Performed By: #### ERTPF, CONNER, LIP, LIVP, TEGCR ####[address] [place] [address] Chloride molar xfen291 mmol/VJoru50-989 [facility] HospitalComment on above:Performed By: #### ERTPF, CONNER, LIP, LIVP, TEGCR ####[address] [address] NH4 molar conc22 mmol/IRiiapd94-93QgtzeWooster Community Hospital Comment on above:Performed By: #### ERTPF, CONNER, LIP, LIVP, TEGCR ####[address] [address] Creatinine mass conc1.43 mg/dLHigh0.70-1.20[facility] HospitalComment on above:Performed By: #### ERTPF, CONNER, LIP, LIVP, TEGCR ####[address] [address] GFR, Amer>60Normal>60[facility] HospitalComment on above:Performed By: #### ERTPF, CONNER, LIP, LIVP, TEGCR ####[address] [address] GFR,non Amer51 mL/minLow>60[facility] HospitalComment on above: Performed By: #### ERTPF, CONNER, LIP, LIVP, TEGCR ####[address] [address] Glucose mass wzpe781 mg/qFYxvi49-06HcbvtSonoma Developmental CenterComment on above:Performed By: #### ERTPF, CONNER, LIP, LIVP, TEGCR ####[address] [address] Potassium molar conc3.8 mmol/LNormal3.7-5.3MSonoma Developmental Center Comment on above:Performed By: #### ERTPF, CONNER, LIP, LIVP, TEGCR ####[facility] [address] [place] [address] Sodium molar aqrj763 mmol/MVwxi041-907NnuvxWooster Community HospitalComment on above:Performed By: #### ERTPF, CONNER, LIP, LIVP, TEGCR ####[facility] [address] [place] [address] Urea nitrogen mass conc25 mg/dLHigh6-20[facility] HospitalComment on above:Performed By: #### ERTPF, CONNER, LIP, LIVP, TEGCR ####[facility] [address] [place] [address] BUN/CRE Ratio NOT REPORTEDNormal9-20[facility] HospitalComment on above:Performed By: #### ERTPF, CONNER, LIP, LIVP, TEGCR ####[place] [address] Staging:NOT REPORTEDNormalWooster Community HospitalComment on above:Performed By: #### ERTPF, CONNER, LIP, LIVP, TEGCR ####[place] [address] CBC with Diff on 01-00-3470Fop. Basophil0.00 k/uLNormal0.0-0.2MSonoma Developmental Center Comment on above:Performed By: #### ERTPF, CONNER, LIP, LIVP, TEGCR ####[facility] [place] [address] Abs.Imm.Granulocyte0.95 k/uLHigh0.00-0.30[facility] HospitalComment on above:Performed By: #### ERTPF, CONNER, LIP, LIVP, TEGCR ####[address] [address] Abs.Neutrophil (Seg)19.43 k/uLHigh1.8-7.7[facility] HospitalComment on above:Performed By: #### ERTPF, CONNER, LIP, LIVP, TEGCR ####[address] [address] Basophils/100 WBC Auto (Bld)0 %Normal0-2MSonoma Developmental CenterComment on above: Performed By: #### ERTPF, OCNNER, LIP, LIVP, TEGCR ####[address] [address] Eosinophils Auto #/vol (Bld)0.24 10*3/uL Normal0.0-0.4[facility] HospitalComment on above:Performed By: #### ERTPF, CONNER, LIP, LIVP, TEGCR ####[address] [address] Eosinophils/100 WBC Auto (Bld)1 %Normal1-4[facility] HospitalComment on above:Performed By: #### ERTPF, CONNER, LIP, LIVP, TEGCR ####[address] [address] Immature granulocytes #/vol (Bld)4 %Ypxg3IaqvwWooster Community HospitalComment on above:Performed By: #### ERTPF, CONNER, LIP, LIVP, TEGCR ####[address] [address] Lymphocytes Auto #/vol (Bld)2.13 10*3/uL Normal1.0-4.8[facility] HospitalComment on above:Performed By: #### ERTPF, CONNER, LIP, LIVP, TEGCR ####[address] [address] Lymphocytes/100 WBC Auto (Bld)9 %Zbk15-04RdybrWooster Community HospitalComment on above:Performed By: #### ERTPF, CONNER, LIP, LIVP, TEGCR ####[address] [address] Monocytes Auto #/vol (Bld)0.95 10*3/uLHigh0.1-0.8[facility] HospitalComment on above:Performed By: #### ERTPF, CONNER, LIP, LIVP, TEGCR ####[address] [address] Monocytes/100 WBC Auto (Bld)4 %Normal1-7 [facility] HospitalComment on above:Performed By: #### ERTPF, CONNER, LIP, LIVP, TEGCR ####[address] [address] Morphology Interp Eduard (Bld)ANISOCYTOSIS PRESENTNormalWooster Community HospitalComment on above:Result Comment: MACROCYTOSIS PRESENT Performed By: #### ERTPF, CONNER, LIP, LIVP, TEGCR ####[address] [address] Neutrophil (Seg)82 %Gxzl52-31MzahdWooster Community HospitalComment on above:Performed By: #### ERTPF, CONNER, LIP, LIVP, TEGCR ####[address] [address] Nucleated RBC/100 WBC Ratio (Bld)1 per 100 ABDHnut4SbqehWooster Community HospitalComment on above:Performed By: #### ERTPF, CONNER, LIP, LIVP, TEGCR ####[address] [address] Erythrocyte distribution width Auto Ratio (RBC)18.3 %High11.8-14.4[facility] HospitalComment on above:Performed By: #### ERTPF, CONNER, LIP, LIVP, TEGCR ####[facility] [address] [place] [address] Hematocrit Auto Volume Fraction (Bld)33.7 %Low40.7-50.3MSonoma Developmental CenterComment on above:Performed By: #### ERTPF, CONNER, LIP, LIVP, TEGCR ####[facility] [address] [place] [address] Hemoglobin mass conc (Bld)8.8 g/dLLow 13.0-17.0[facility] HospitalComment on above:Performed By: #### ERTPF, CONNER, LIP, LIVP, TEGCR ####[address] [address] MCH Auto Entitic mass (RBC)30.1 ytTtthpl96.2-33.5[facility] HospitalComment on above:Performed By: #### ERTPF, CONNER, LIP, LIVP, TEGCR ####[address] [address] MCHC Auto mass conc (RBC)26.1 g/dLLow28.4-34.8[facility] HospitalComment on above:Performed By: #### ERTPF, CONNER, LIP, LIVP, TEGCR ####[address] [address] MCV Auto Entitic volume (RBC)115.4 qXBowx00.6-102.9[facility] HospitalComment on above: Performed By: #### ERTPF, CONNER, LIP, LIVP, TEGCR ####[address] [address] NRBC Automated1.2 per 100 WBCHigh0.0[facility] HospitalComment on above:Performed By: #### ERTPF, CONNER, LIP, LIVP, TEGCR ####[address] [address] Platelet mean volume Auto Entitic volume (Bld)10.7 fLNormal8.1-13.5[facility] HospitalComment on above:Performed By: #### ERTPF, CONNER, LIP, LIVP, TEGCR ####[address] [address] Platelets Auto #/vol (Bld)775 10*3/aSEati884-873EudujWooster Community Hospital Comment on above:Performed By: #### ERTPF, CONNER, LIP, LIVP, TEGCR ####[address] [address] RBC Auto #/vol (Bld)2.92 10*6/uLLow4.21-5.77[facility] HospitalComment on above:Performed By: #### ERTPF, CONNER, LIP, LIVP, TEGCR ####[address] [address] WBC Auto #/vol (Bld)23.7 10*3/uLHigh3.5-11.3 [facility] HospitalComment on above:Performed By: #### ERTPF, CONNER, LIP, LIVP, TEGCR ####[address] [address] [phone] Diff PerformedNOT REPORTEDNoalWooster Community HospitalComment on above:Performed By: #### ERTPF, CONNER, LIP, LIVP, TEGCR ####[address] [address] Platelets Auto #/vol (Bld)NOT REPORTEDSumma Health Barberton CampusComment on above: Performed By: #### ERTPF, CONNER, LIP, LIVP, TEGCR ####[address] [address] RBC morphology finding Nom (Bld)NOT REPORTEDNoWhite HospitalComment on above:Performed By: #### ERTPF, CONNER, LIP, LIVP, TEGCR ####[facility] [place] [address] WBC MorphologyNOT REPORTEDNoWhite HospitalComment on above:Performed By: #### ERTPF, CONNER, LIP, LIVP, TEGCR ####[facility] [address] [place] [address] NA (Sodium)on 23-09-5849Ltbhqv molar iand799 mmol/WQpew796-140PmmusWooster Community Hospital Comment on above:Performed By: #### ERTPF, CONNER, LIP, LIVP, TEGCR ####[address] [address] OPERATIVE REPORTon [id number] REPORT[address] [address] OPERATIVE REPORTPATIENT NAME: AELJO FLOYD : 1960MED REC NO: [id number] ROOM: [address] [place] [address] NO: [id number] ADMITDATE: 01/19/2018PROVIDER: Ele MottDATE OF PROCEDURE: 02/01/2018SURGEON: LILY [...] to the ICU atthat time and since beenin the ICU and recently transferred to the floor,but with prolonged ileus and wound infection. He was found on the morningof 02/01 to have fascial dehiscence of the inferior aspect of his incisionandwas taken to the operating room for examination. Informed consent wasobtained from the patient's sister, Alex Floyd, his power of criminal defense attorney. All risks, benefits and alternatives were discussed withher and verifiedby the nurse present and informed consent was obtained.OPERATIVE PROCEDURE: The patient was taken back to the operating room andtransferred to the operating room table in the supine position. Heunderwent general anesthesia per anesthesia guidelines. Once underanesthesia, a Torres cath eter was placed. He was given 2 gm [...] up and suctioned. No bowelperforation or fecal materialwas noted to be within the abdomen at [...] in a Lembert fashion.Next, attention was turned toclosing the abdomen. Then 0 looped PDS wasused for this, cut in a single layer and [id number] stitches frominferior to the proximal aspect of [...] used to close the subcutaneous layers to allowto healby secondary intention. The patient was then extubated and transferred tothe PACU in stable c ondition. An instrument and sponge counts wasperformed and found to be correct.Dr. Quinn was scrubbed and present for the entirety of this case.ELE MOTTD: 02/01/2018 15:34:43 [id number]#: [id number] Doc#: [id number]: Ketan Quinn MD [facility] AdministrationXR CHEST PORTABLEon [id number] CHEST PORTABLE EXAMINATION:SINGLE XRAY VIEW OF THE CHEST02/01/2018 11:37 amCOMPARISON:Chest radiograph 01/30/2018, 01/29/2018HISTORY:ORDERING SYSTEM PROVIDED HISTORY: TachypneaTECHNOLOGIST PROVIDED HISTORY:TachypneaFINDINGS:Hypoexpanded lungs with bronchovascular crowding and fluctuating basilaratelectasis. No pneumothorax. Blunted left costophrenic sulcus isunchanged. Stable cardiomediastinal contours. Esophagogastric tubeterminates over the gastric bubble. Mild gaseous distention of the esophagus.IMPRESSION:Unchanged small left pleural effusion and basilar atelectasis. Borderlineinterstitial edema.Interpreted by:NADEGE Mendezigned by:Jeramy Solano MD02/01/18inal resultNormalMerAvalon Municipal HospitalBasic Metabolic Profon 01-31-2018(cont.)NormalMercy Memorial Hospital Of GardenaComment on above:Result Comment: Average GFR for 50-59 years old: 93 mL/min/1.73sq mChronic Kidney Disease: <60 mL/min/1.73sq mKidney failure: <15 mL/min/1.73sq meGFR calculated using average adult body mass. Additional eGFR calculator available at:http://www.WePow.Fanergies/multiple_crcl_2012.htmPerformed By: #### ERTPF, CONNER, LIP, LIVP, TEGCR ####[facility] [address] [place] [address] Anion gap 3 molar conc14 mmol/LNormal9-17[facility] HospitalComment on above:Performed By: #### ERTPF, CONNER, LIP, LIVP, TEGCR ####[address] [place] [address] Calcium mass conc8.1 mg/dLLow8.6-10.4[facility] Community HospitalComment on above:Performed By: #### ERTPF, CONNER, LIP, LIVP, TEGCR ####[address] [address] Chloride molar xyfu029 mmol/RWoww30-124 [facility] HospitalComment on above:Performed By: #### ERTPF, CONNER, LIP, LIVP, TEGCR ####[address] [place] 43[address] EB4 molar conc23 mmol/AUjjwqk19-22KesmzWooster Community Hospital Comment on above:Performed By: #### ERTPF, CONNER, LIP, LIVP, TEGCR ####[facility] [address] [place] [address] Creatinine mass conc1.31 mg/dLHigh0.70-1.20[facility] HospitalComment on above:Performed By: #### ERTPF, CONNER, LIP, LIVP, TEGCR ####[facility] [address] [place] [address] GFR, Amer>60Normal>60MerAvalon Municipal HospitalComment on above:Performed By: #### ERTPF, CONNER, LIP, LIVP, TEGCR ####[facility] [address] [place] [address] GFR,non Amer56 mL/minLow>60MerAvalon Municipal HospitalComment on above: Performed By: #### ERTPF, CONNER, LIP, LIVP, TEGCR ####[facility] [address] [place] [address] Glucose mass uput348 mg/wHKweg98-73Pfnek Memorial Hospital Of GardenaComment on above:Performed By: #### ERTPF, CONNER, LIP, LIVP, TEGCR ####[facility] [address] [place] [address] Potassium molar conc3.3 mmol/LLow3.7-5.3Mgreene memorial hospitaly Memorial Hospital Of GardenaComment on above:Performed By: #### ERTPF, CONNER, LIP, LIVP, TEGCR ####[facility] [address] [place] [address] Sodium molar fcca319 mmol/SFtsc729-064ObtxdWooster Community HospitalComment on above:Performed By: #### ERTPF, CONNER, LIP, LIVP, TEGCR ####[facility] [address]rap[address]kidw[address] [place] [address] Urea nitrogen mass conc20 mg/dLNormal6-20[facility] HospitalComment on above:Performed By: #### ERTPF, CONNER, LIP, LIVP, TEGCR ####[facility] [address] [place] [address] BUN/CRE Ratio NOT REPORTEDNormal9-20[facility] HospitalComment on above:Performed By: #### ERTPF, CONNER, LIP, LIVP, TEGCR ####[facility] [address] [place] [address] Staging:NOT REPORTEDNormalMerAvalon Municipal HospitalComment on above:Performed By: #### ERTPF, CONNER, LIP, LIVP, TEGCR ####[place] [address] CBC with Diff on 48-17-7696Wuv. Basophil0.00 k/uLNormal0.0-0.2MS[facility] Comment on above:Performed By: #### ERTPF, CONNER, LIP, LIVP, TEGCR ####[place] [address] Abs.Imm.Granulocyte0.00 k/uLNormal0.00-0.30[facility] HospitalComment on above:Performed By: #### ERTPF, CONNER, LIP, LIVP, TEGCR ####[place] [address] Abs.Neutrophil (Seg)21.68 k/uLHigh1.8-7.7W[facility] Community HospitalComment on above:Performed By: #### ERTPF, CONNER, LIP, LIVP, TEGCR ####[place] [address] Basophils/100 WBC Auto (Bld)0 %Normal0-2MSonoma Developmental CenterComment on above:Performed By: #### ERTPF, CONNER, LIP, LIVP, TEGCR ####[place] [id number] Eosinophils Auto #/vol (Bld)0.25 10*3/uLNormal0.0-0.4[facility] HospitalComment on above: Performed By: #### ERTPF, CONNER, LIP, LIVP, TEGCR ####[address] [address] Eosinophils/100 WBC Auto (Bld)1 %Normal 1-4[facility] HospitalComment on above:Performed By: #### ERTPF, CONNER, LIP, LIVP, TEGCR ####[address] [address] Immature granulocytes #/vol (Bld)0 %Woklea1LgsquWooster Community HospitalComment on above:Performed By: #### ERTPF, CONNER, LIP, LIVP, TEGCR ####[address] [address] Lymphocytes Auto #/vol (Bld)2.77 10*3/uLNormal1.0-4.8[facility] HospitalComment on above:Performed By: #### ERTPF, CONNER, LIP, LIVP, TEGCR ####[address] [address] Lymphocytes/100 WBC Auto (Bld)11 %Zoe08-33WdbfyWooster Community HospitalComment on above:Performed By: #### ERTPF, CONNER, LIP, LIVP, TEGCR ####[address] [address] Monocytes Auto #/vol (Bld)0.50 10*3/uLNormal0.1-0.8[facility] HospitalComment on above:Performed By: #### ERTPF, CONNER, LIP, LIVP, TEGCR ####[address] [address] Monocytes/100 WBC Auto (Bld)2 %Normal1-7W[facility] Community HospitalComment on above:Performed By: #### ERTPF, CONNER, LIP, LIVP, TEGCR ####[address] [address] Morphology Interp Eduard (Bld)MACROCYTOSIS PRESENTNormalWooster Community HospitalComment on above: Result Comment: ANISOCYTOSIS PRESENTPerformed By: #### ERTPF, CONNER, LIP, LIVP, TEGCR ####[facility] [address] [place] [address] Neutrophil (Seg)86 %Jqxg04-53WrjzxWooster Community HospitalComment on above: Performed By: #### ERTPF, CONNER, LIP, LIVP, TEGCR ####[address] [address] Nucleated RBC/100 WBC Ratio (Bld)1 per 100 FZHXgpf5TqjnuWooster Community HospitalComment on above:Performed By: #### ERTPF, CONNER, LIP, LIVP, TEGCR ####[address] [phone] distribution width Auto Ratio (RBC)17.6 %High 11.8-14.4W[facility] HospitalComment on above:Performed By: #### ERTPF, CONNER, LIP, LIVP, TEGCR ####[address] [address] Hematocrit Auto Volume Fraction (Bld)30.9 %Low40.7-50.3MSonoma Developmental CenterComment on above:Performed By: #### ERTPF, CONNER, LIP, LIVP, TEGCR ####[address] [address] Hemoglobin mass conc (Bld)8.8 g/dLLow13.0-17.0[facility] Comment on above:Performed By: #### ERTPF, CONNER, LIP, LIVP, TEGCR ####[address] [address] MCH Auto Entitic mass (RBC)29.9 twGnisdu99.2-33.5W[facility] HospitalComment on above: Performed By: #### ERTPF, CONNER, LIP, LIVP, TEGCR ####[address] [address] MCHC Auto mass conc (RBC)28.5 g/dLNormal 28.4-34.8[facility] HospitalComment on above:Performed By: #### ERTPF, CONNER, LIP, LIVP, TEGCR ####Filomena [address] [place] [address] MCV Auto Entitic volume (RBC)105.1 qXAlvi48.6-102.9W[facility] HospitalComment on above:Performed By: #### ERTPF, CONNER, LIP, LIVP, TEGCR ####[place] [address] NRBC Automated0.5 per 100 WBCHigh0.0W[facility] Community HospitalComment on above: Performed By: #### ERTPF, CONNER, LIP, LIVP, TEGCR ####[facility] [address] [place] [address] Platelet mean volume Auto Entitic volume (Bld)10.6 fLNormal8.1-13.5[facility] HospitalComment on above: Performed By: #### ERTPF, CONNER, LIP, LIVP, TEGCR ####[place] [address] Platelets Auto #/vol (Bld)852 10*3/uLHigh 138-453MerAvalon Municipal HospitalComment on above:Performed By: #### ERTPF, CONNER, LIP, LIVP, TEGCR ####[place] [address] RBC Auto #/vol (Bld)2.94 10*6/uLLow4.21-5.77[facility] HospitalComment on above:Performed By: #### ERTPF, CONNER, LIP, LIVP, TEGCR ####[facility] [address] [place] [address] WBC Auto #/vol (Bld)25.2 10*3/uLHigh3.5-11.3Mercy Memorial Hospital Of GardenaComment on above: Performed By: #### ERTPF, CONNER, LIP, LIVP, TEGCR ####[facility] [address] [place] [address] Auto Diff PerformedNOT REPORTEDSaint Luke'S North Hospital–Barry Roadal [facility] HospitalComment on above:Performed By: #### ERTPF, CONNER, LIP, LIVP, TEGCR ####[address] [address] [phone] Auto #/vol (Bld)NOT REPORTEDSumma Health Barberton CampusComment on above:Performed By: #### ERTPF, CONNER, LIP, LIVP, TEGCR ####[address] [address] RBC morphology finding Nom (Bld)NOT REPORTEDSumma Health Barberton CampusComment on above:Performed By: #### ERTPF, CONNER, LIP, LIVP, TEGCR ####[address] [address] WBC MorphologyNOT REPORTEDSumma Health Barberton CampusComment on above:Performed By: #### ERTPF, CONNER, LIP, LIVP, TEGCR ####[facility] [address] [place] [address] Magnesiumon 40-59-4065Rymepkikc mass conc2.7 mg/dLHigh1.6-2.6Mer[facility] Memorial Hospital Of GardenaComment on above:Performed By: #### ERTPF, CONNER, LIP, LIVP, TEGCR ####[facility] [address] [place] [address] Phosphorus, Inorg.on 88-66-8406Veckiynnvb, Inorg.2.7 mg/dLNormal2.5-4.5[facility] HospitalComment on above:Performed By: #### ERTPF, CONNER, LIP, LIVP, TEGCR ####aSrithay [address] [place] [address] [phone] w/ Microon 01-31-2018-----NormalWooster Community HospitalComment on above: Performed By: #### ERTPF, CONNER, LIP, LIVP, TEGCR ####Sarithay [address] [place] [address] [phone] Acid,UrNegativeNormalNEGWooster Community HospitalComment on above:Performed By: #### ERTPF, CONNER, LIP, LIVP, TEGCR ####Sarithay [address] [place] [address] Bilirubin, SemiQt,UrNegativeNormalNEGWooster Community HospitalComment on above:Performed By: #### ERTPF, CONNER, LIP, LIVP, TEGCR ####[facility] [address] [place] [address] [phone]valon Municipal HospitalComment on above:Performed By: #### ERTPF, CONNER, LIP, LIVP, TEGCR ####[address] [phone] cells0 TO 6Smayvf5-1LyygdWooster Community HospitalComment on above:Performed By: #### ERTPF, CONNER, LIP, LIVP, TEGCR ####[facility] [address] [place] [address] [phone],Semi-qnt,UrNegativeNormalNEGWooster Community HospitalComment on above:Performed By: #### ERTPF, CONNER, LIP, LIVP, TEGCR ####[address] [address] Hemoglobin, UrMODERATEAbnormalNEGWooster Community HospitalComment on above:Performed By: #### ERTPF, CONNER, LIP, LIVP, TEGCR ####[address] [address] Leuckocyte EsteraseNegativeNormalNEG [facility] HospitalComment on above:Performed By: #### ERTPF, CONNER, LIP, LIVP, TEGCR ####[address] [address] Nitrite,UrNegativeNormalNEGWooster Community HospitalComment on above:Performed By: #### ERTPF, CONNER, LIP, LIVP, TEGCR ####[address] [address] PH,Ur6.9Hahtfc7.0-8.0 [facility] HospitalComment on above:Performed By: #### ERTPF, CONNER, LIP, LIVP, TEGCR ####[address] [address] Protein mass conc1+AbnormalNEGWooster Community Hospital Comment on above:Performed By: #### ERTPF, CONNER, LIP, LIVP, TEGCR ####[place] [address] RBC Test strip #/vol (U) 5 TO 41Jplxfa7-8XllwiWooster Community HospitalComment on above:Result Comment: Reference range defined for non-centrifuged specimen.Performed By: #### ERTPF, CONNER, LIP, LIVP, TEGCR ####[address] [address] Spec. [place],Ur1.011Tqdjwh0.005-1.030W[facility] Community HospitalComment on above:Performed By: #### ERTPF, CONNER, LIP, LIVP, TEGCR ####[address] [address] TurbidityCLEARNormal CLEARWooster Community HospitalComment on above:Performed By: #### ERTPF, CONNER, LIP, LIVP, TEGCR ####[facility] [address]oscq[address] [place] [address] Urine WBC's0 TO 4Lwelda1-4JdmwzWooster Community HospitalComment on above:Performed By: #### ERTPF, CONNER, LIP, LIVP, TEGCR ####[facility] [address] [place] [address] Urobilinogen,UrNormal NormalNORMWooster Community HospitalComment on above:Performed By: #### ERTPF, CONNER, LIP, LIVP, TEGCR ####Saritha [address] [place] [address] Amorphous SedimentNOT REPORTEDNormalNONEMeJohn Douglas French CenterComment on above:Performed By: #### ERTPF, CONNER, LIP, LIVP, TEGCR ####[facility] [address] [place] [phone] REPORTEDNormalNONEMeJohn Douglas French CenterComment on above:Performed By: #### ERTPF, CONNER, LIP, LIVP, TEGCR ####[facility] [address] [place] [phone] REPORTEDNormal0-8[facility] Comment on above:Performed By: #### ERTPF, CONNER, LIP, LIVP, TEGCR ####[facility] [address]pfht[address] [place] [address] CrystalsNOT REPORTED NormalCHANDLER REGIONAL MEDICAL CENTEREMeJohn Douglas French CenterComment on above:Performed By: #### ERTPF, CONNER, LIP, LIVP, TEGCR ####Sarithay [address]jrmcyf[address] [place] [address] Epithelial, RenalNOT GPZRBKQSJqazfv2UuqbgAvalon Municipal HospitalComment on above:Performed By: #### ERTPF, CONNER, LIP, LIVP, TEGCR ####Fil[place]a [address]ib[address] [place] [address] Mucus StrandsNOT REPORTEDNormalNONEMeJohn Douglas French CenterComment on above:Performed By: #### ERTPF, CONNER, LIP, LIVP, TEGCR ####Sarithay [address]cad[address] [place] [address] Other ObservationsNOT REPORTEDNormalNREQWooster Community HospitalComment on above:Performed By: #### ERTPF, CONNER, LIP, LIVP, TEGCR ####[facility] [address] [place] [address] TrichomonasNOT REPORTEDrmalNONAvita Health System Ontario HospitalComment on above:Performed By: #### ERTPF, CONNER, LIP, LIVP, TEGCR ####[address] [address] YeastNOT REPORTEDOhioHealth Grove City Methodist HospitalComment on above:Performed By: #### ERTPF, CONNER, LIP, LIVP, TEGCR ####[facility] [address] [place] [address] [phone] with Diff on 16-79-2135Ydb. Basophil0.00 k/uLNormal0.0-0.2[facility] Comment on above:Performed By: #### ERTPF, CONNER, LIP, LIVP, TEGCR ####[facility] [address] [place] [address] Abs.Imm.Granulocyte0.22 k/uLNormal0.00-0.30MerAvalon Municipal HospitalComment on above:Performed By: #### ERTPF, CONNER, LIP, LIVP, TEGCR ####[address] [address] Abs.Neutrophil (Seg)17.57 k/uLHigh1.8-7.7[facility] HospitalComment on above:Performed By: #### ERTPF, CONNER, LIP, LIVP, TEGCR ####[address] [address] Basophils/100 WBC Auto (Bld)0 %Normal0-2MercKindred HospitalComment on above:Performed By: #### ERTPF, CONNER, LIP, LIVP, TEGCR ####[address] [address] Eosinophils Auto #/vol (Bld)0.22 10*3/uLNormal0.0-0.4[facility] HospitalComment on above: Performed By: #### ERTPF, CONNER, LIP, LIVP, TEGCR ####[address] [address] Eosinophils/100 WBC Auto (Bld)1 %Normal 1-4[facility] HospitalComment on above:Performed By: #### ERTPF, CONNER, LIP, LIVP, TEGCR ####[address] [address] Immature granulocytes #/vol (Bld)1 %Rihz7YawhfAvalon Municipal HospitalComment on above:Performed By: #### ERTPF, CONNER, LIP, LIVP, TEGCR ####[address] [address] Lymphocytes Auto #/vol (Bld)2.17 10*3/uLNormal1.0-4.8[facility] HospitalComment on above:Performed By: #### ERTPF, CONNER, LIP, LIVP, TEGCR ####[address] [address] Lymphocytes/100 WBC Auto (Bld)10 %Ytm54-82AjoddWooster Community HospitalComment on above:Performed By: #### ERTPF, CONNER, LIP, LIVP, TEGCR ####[facility] [address] [place] [address] Monocytes Auto #/vol (Bld)1.52 10*3/uLHigh0.1-0.8[facility] HospitalComment on above:Performed By: #### ERTPF, CONNER, LIP, LIVP, TEGCR ####[facility] [address] [place] [address] Monocytes/100 WBC Auto (Bld)7 %Normal1-7W[facility] HospitalComment on above:Performed By: #### ERTPF, CONNER, LIP, LIVP, TEGCR ####[facility] [address] [place] [address] Morphology Interp Eduard (Bld)ANISOCYTOSIS PRESENTNormalWooster Community HospitalComment on above: Result Comment: INCREASED BANDS PRESENTPerformed By: #### ERTPF, CONNER, LIP, LIVP, TEGCR ####[facility] [address] [place] [address] Neutrophil (Seg)81 %Ifys51-24XglzrWooster Community HospitalComment on above: Performed By: #### ERTPF, CONNER, LIP, LIVP, TEGCR ####[facility] [address] [place] [phone] distribution width Auto Ratio (RBC)17.1 %High11.8-14.4[facility] HospitalComment on above: Performed By: #### ERTPF, CONNER, LIP, LIVP, TEGCR ####[facility] [address] [place] [address] Hematocrit Auto Volume Fraction (Bld)29.8 %Low40.7-50.3Mer[facility] Hospital Of GardenaComment on above:Performed By: #### ERTPF, CONNER, LIP, LIVP, TEGCR ####Sarithay [address] [place], [place] [phone] mass conc (Bld)8.9 g/dLLow13.0-17.0W[facility] HospitalComment on above:Performed By: #### ERTPF, CONNER, LIP, LIVP, TEGCR ####[facility] [address] [place] [address] MCH Auto Entitic mass (RBC)29.9 dhAczuwr18.2-33.5[facility] Comment on above:Performed By: #### ERTPF, CONNER, LIP, LIVP, TEGCR ####[facility] [address] [place], [place] [phone] Auto mass conc (RBC)29.9 g/cBBpgqpi73.4-34.8[facility] HospitalComment on above: Performed By: #### ERTPF, CONNER, LIP, LIVP, TEGCR ####[facility] [address] [place], [place] [phone] Auto Entitic volume (RBC)100.0 fL Sexiqs54.6-102.9W[facility] HospitalComment on above:Performed By: #### ERTPF, CONNER, LIP, LIVP, TEGCR ####[facility] [address] [place], [place] [phone] Automated0.1 per 100 WBCHigh0.0W[facility] HospitalComment on above:Performed By: #### ERTPF, CONNER, LIP, LIVP, TEGCR ####[facility] [address]aezb[address] [place], [place] [phone] mean volume Auto Entitic volume (Bld)10.5 fLNormal8.1-13.5[facility] HospitalComment on above:Performed By: #### ERTPF, CONNER, LIP, LIVP, TEGCR ####Filomena [address] [place] [address] Platelets Auto #/vol (Bld)850 10*3/mMAfql827-385RcpehWooster Community HospitalComment on above: Performed By: #### ERTPF, CONNER, LIP, LIVP, TEGCR ####[facility]ie [address]zcbmwplr[address] [place] [address] RBC Auto #/vol (Bld)2.98 10*6/uLLow 4.21-5.77[facility] HospitalComment on above:Performed By: #### ERTPF, CONNER, LIP, LIVP, TEGCR ####Saritha [address] [place] [address] WBC Auto #/vol (Bld)21.7 10*3/uLHigh3.5-11.3MSonoma Developmental CenterComment on above:Performed By: #### ERTPF, CONNER, LIP, LIVP, TEGCR ####[facility] [address] [place] [address] Auto Diff PerformedNOT REPORTEDNormalWooster Community HospitalComment on above: Performed By: #### ERTPF, CONNER, LIP, LIVP, TEGCR ####[facility] [address]vjs[address] [place] [address] Platelets Auto #/vol (Bld)NOT REPORTED NormalWooster Community HospitalComment on above:Performed By: #### ERTPF, CONNER, LIP, LIVP, TEGCR ####[facility] [address]cehwxbqcsz[address] [place] [address] RBC morphology finding Nom (Bld)NOT REPORTEDNormalWooster Community HospitalComment on above:Performed By: #### ERTPF, CONNER, LIP, LIVP, TEGCR ####[facility] [address] [place], [place] [phone] MorphologyNOT REPORTEDNormalWooster Community HospitalComment on above: Performed By: #### ERTPF, CONNER, LIP, LIVP, TEGCR ####Filomena [address] [place], [place] [phone] Metabolic Profon 01-30-2018(cont.) NormalWooster Community HospitalComment on above:Result Comment: Average GFR for 50-59 years old: 93 mL/min/1.73sq mChronic Kidney Disease: <60 mL /min/1.73sq mKidney failure: <15 mL/min/1.73sq meGFR calculated using average adult body mass. Additional eGFR calculator available at:http://www.Blushr/multiple_crcl_2012.htmPerformed By: #### ERTPF, CONNER, LIP, LIVP, TEGCR ####Filomena [address] [place] 43[address] [phone] mass conc2.6 g/dLLow3.5-5.2MSonoma Developmental CenterComment on above:Performed By: #### ERTPF, CONNER, LIP, LIVP, TEGCR ####Filomena [address] [place] [address] Albumin/Globulin mass ratio0.6 {ratio}Low1.0-2.5W[facility] HospitalComment on above: Performed By: #### ERTPF, CONNER, LIP, LIVP, TEGCR ####Saritha [address] [place], [place] [phone] Phos76 U/RRldaow35-623EygpzWooster Community HospitalComment on above:Performed By: #### ERTPF, CONNER, LIP, LIVP, TEGCR ####Saritha [address] [place], [place] [phone] enzyme act/vol21 U/LNormal5-41MerCass Medical CenterCorcovado Medical CenterComment on above: Performed By: #### ERTPF, CONNER, LIP, LIVP, TEGCR ####[address] [address] Anion gap 3 molar conc10 mmol/LNormal9-17 [facility] HospitalComment on above:Performed By: #### ERTPF, CONNER, LIP, LIVP, TEGCR ####[address] [address] AST enzyme act/vol51 U/LHigh<40[facility] Comment on above:Performed By: #### ERTPF, CONNER, LIP, LIVP, TEGCR ####[address] [address] Bilirubin Ql (U)0.98 mg/dLNormal0.3-1.2MSonoma Developmental CenterComment on above:Performed By: #### ERTPF, CONNER, LIP, LIVP, TEGCR ####[address] [address] Calcium mass conc8.1 mg/dLLow8.6-10.4[facility] HospitalComment on above:Performed By: #### ERTPF, CONNER, LIP, LIVP, TEGCR ####[address] [address] Chloride molar gcan145 mmol/UHrxh75-452LnvmeWooster Community HospitalComment on above: Performed By: #### ERTPF, CONNER, LIP, LIVP, TEGCR ####[address] [place] [address] KA1 molar conc27 mmol/RKqtrpp20-74YnadtWooster Community HospitalComment on above:Performed By: #### ERTPF, CONNER, LIP, LIVP, TEGCR ####[address] [address] Creatinine mass conc1.47 mg/dLHigh0.70-1.20[facility] Comment on above:Performed By: #### ERTPF, CONNER, LIP, LIVP, TEGCR ####[place] [address] GFR, Amer60 mL/minLow>60[facility] HospitalComment on above:Performed By: #### ERTPF, CONNER, LIP, LIVP, TEGCR ####[place] [address] GFR,non Amer49 mL/minLow>60[facility] HospitalComment on above:Performed By: #### ERTPF, CONNER, LIP, LIVP, TEGCR ####[place] [address] Glucose mass yysl503 mg/rYUwog03-47HinmaSonoma Developmental CenterComment on above:Performed By: #### ERTPF, CONNER, LIP, LIVP, TEGCR ####[place] [address] Potassium molar conc3.2 mmol/LLow3.7-5.3MSonoma Developmental CenterComment on above:Performed By: #### ERTPF, CONNER, LIP, LIVP, TEGCR ####[place] [address] Protein mass conc6.7 g/dLNormal6.4-8.3MSonoma Developmental CenterComment on above: Performed By: #### ERTPF, CONNER, LIP, LIVP, TEGCR ####[place] [address] Sodium molar hbxj769 mmol/EQlqd705-573 [facility] HospitalComment on above:Performed By: #### ERTPF, CONNER, LIP, LIVP, TEGCR ####[facility] [address] [place] 43[address] Urea nitrogen mass conc23 mg/dLHigh6-20[facility] HospitalComment on above:Performed By: #### ERTPF, CONNER, LIP, LIVP, TEGCR ####[facility] [address] [place], [place] [phone]/CRE RatioNOT REPORTEDNormal9-20[facility] HospitalComment on above:Performed By: #### ERTPF, CONNER, LIP, LIVP, TEGCR ####[facility] [address] [place], [place] [phone]:NOT REPORTEDNoalWooster Community Hospital Comment on above:Performed By: #### ERTPF, CONNER, LIP, LIVP, TEGCR ####[facility] [address] [place] [address] [phone] 01-30-2018 Magnesium mass conc3.0 mg/dLHigh1.6-2.6[facility] Of GardenaComment on above:Performed By: #### ERTPF, CONNER, LIP, LIVP, TEGCR ####[facility] [address] [place], [place] [phone], Inorg.on 36-46-1482Nquafjfivd, Inorg.1.9 mg/dLLow2.5-4.5[facility] Comment on above:Performed By: #### ERTPF, CONNER, LIP, LIVP, TEGCR ####[facility] [address] [place] [address] XR CHEST PORTABLEon [id number] CHEST PORTABLEEXAMINATION:SINGLE XRAY VIEW OF THE CHEST01/30/2018 8:26 amCOMPARISON:01/29/2018HISTORY:ORDERING SYSTEM PROVIDED HISTORY: tachypneaTECHNOLOGIST PROVIDED HISTORY:tachypneaFINDINGS:The heart and mediasti nal structures are stable. NG tube and right upperextremity PICC line are in place. Bibasilar atelectasis is present withsmall pleural effusions.IMPRESSION: Small pleural effusions with bibasilar atelectasisInterpreted by:NADEGE Rosalesigned by:Lauro Hood MD01/30/18Final resultNormalWooster Community HospitalAmmoniaon 60-95-5447Xtoownj mass conc (P)33 umol/IOmsurd28-12YiyszWooster Community HospitalComment on above:Performed By: #### ERTPF, CONNER, LIP, LIVP, TEGCR ####[facility] [address] [place] [address] Basic Metabolic Profon 01-29-2018(cont.)NormalWooster Community Hospital Comment on above:Result Comment: Average GFR for 50-59 years old: 93 mL/min/1.73sq mChronic Kidney Disease: <60 mL/min/1.73sq mKidney failure: <15 mL/min/1.73sq meGFR calculated using average adult body mass. Additional eGFR calculator available at:http://www.WePow.Fanergies/multiple_crcl_2012.htmPerformed By: #### ERTPF, CONNER, LIP, LIVP, TEGCR ####[facility] HospitalLimtelZcwqlqsbrkzp0[address] [place] [address] Anion gap 3 molar conc13 mmol/LNormal9-17[facility] HospitalComment on above:Performed By: #### ERTPF, CONNER, LIP, LIVP, TEGCR ####[facility] [address] [place] [address] Calcium mass conc7.6 mg/dLLow8.6-10.4[facility] HospitalComment on above:Performed By: #### ERTPF, CONNER, LIP, LIVP, TEGCR ####[facility] [address] [place] [address] Chloride molar dfzf403 mmol/OXqnj53-943 [facility] HospitalComment on above:Performed By: #### ERTPF, CONNER, LIP, LIVP, TEGCR ####[place] [address] [place] [address] HG9 molar conc28 mmol/SKobexb81-64HvjatWooster Community Hospital Comment on above:Performed By: #### ERTPF, CONNER, LIP, LIVP, TEGCR ####[address] [address] Creatinine mass conc1.42 mg/dLHigh0.70-1.20[facility] HospitalComment on above:Performed By: #### ERTPF, CONNER, LIP, LIVP, TEGCR ####[address] [address] GFR, Amer>60Normal>60[facility] HospitalComment on above:Performed By: #### ERTPF, CONNER, LIP, LIVP, TEGCR ####[address] [address] GFR,non Amer51 mL/minLow>60[facility] HospitalComment on above: Performed By: #### ERTPF, CONNER, LIP, LIVP, TEGCR ####[address] [address] Glucose mass lmqo802 mg/hJZpeh72-74ZojeuSonoma Developmental CenterComment on above:Performed By: #### ERTPF, CONNER, LIP, LIVP, TEGCR ####[address] [address] Potassium molar conc3.9 mmol/LNormal3.7-5.3MSonoma Developmental Center Comment on above:Result Comment: SPECIMEN SLIGHTLY HEMOLYZED, RESULTS MAY BE ADVERSELY AFFECTED.Performed By: #### ERTPF, CONNER, LIP, LIVP, TEGCR ####[address] [place] [address] Sodium molar krlv040 mmol/CUjjy909-890NqggpWooster Community HospitalComment on above:Performed By: #### ERTPF, CONNER, LIP, LIVP, TEGCR ####[facility] [address] [place] [address] Urea nitrogen mass conc32 mg/dLHigh6-20[facility] HospitalComment on above:Performed By: #### ERTPF, CONNER, LIP, LIVP, TEGCR ####[facility] [address] [place] [address] BUN/CRE Ratio NOT REPORTEDNormal9-20[facility] HospitalComment on above:Performed By: #### ERTPF, CONNER, LIP, LIVP, TEGCR ####[facility] [address] [place] [address] Staging:NOT REPORTEDNormalWooster Community HospitalComment on above:Performed By: #### ERTPF, CONNER, LIP, LIVP, TEGCR ####[facility] [address] [place] [address] Brain Natri. Peptideon 89-55-2368Pftvlhkeznr peptide B mass conc (Bld)NormalWooster Community HospitalComment on above:Result Comment: Pro-BNP Reference Range:Rule Out: <300Grey Zone: Age <50 300-450 Age 50-75 300-900 Age >75 300-1800Usually represents mild to moderate HF but other cardiopulmonary causes cannot be ruled out.Rule In: Age <50 >450 Age 50-75 >900 Age >75 >1800Performed By: #### ERTPF, CONNER, LIP, LIVP, TEGCR ####[facility] [address] [place] [address] [phone] peptide B mass conc (Bld)1400 pg/mLHigh<300W[facility] HospitalComment on above:Result Comment: Pro-BNP results cannot be compared to BNP results.Performed By: #### ERTPF, CONNER, LIP, LIVP, TEGCR ####[place] [address] CBC with Diff on 65-28-0650Ngv. Basophil0.00 k/uLNormal0.0-0.2MSonoma Developmental Center Comment on above:Performed By: #### ERTPF, CONNER, LIP, LIVP, TEGCR ####[place] [address] Abs.Imm.Granulocyte0.00 k/uLNormal0.00-0.30[facility] HospitalComment on above:Performed By: #### ERTPF, CONNER, LIP, LIVP, TEGCR ####[place] [address] Abs.Neutrophil (Seg)20.91 k/uLHigh1.8-7.7[facility] HospitalComment on above:Performed By: #### ERTPF, CONNER, LIP, LIVP, TEGCR ####[place] [address] Basophils/100 WBC Auto (Bld)0 %Normal0-2MSonoma Developmental CenterComment on above:Performed By: #### ERTPF, CONNER, LIP, LIVP, TEGCR ####[place] [phone] Eosinophils Auto #/vol (Bld)0.25 10*3/uLNormal0.0-0.4[facility] HospitalComment on above: Performed By: #### ERTPF, CONNER, LIP, LIVP, TEGCR ####[address] [address] Eosinophils/100 WBC Auto (Bld)1 %Normal 1-4[facility] HospitalComment on above:Performed By: #### ERTPF, CONNER, LIP, LIVP, TEGCR ####[address] [address] Immature granulocytes #/vol (Bld)0 %Qpzgxm6AnhioWooster Community HospitalComment on above:Performed By: #### ERTPF, CONNER, LIP, LIVP, TEGCR ####[address] [address] Lymphocytes Auto #/vol (Bld)2.21 10*3/uLNormal1.0-4.8[facility] HospitalComment on above:Performed By: #### ERTPF, CONNER, LIP, LIVP, TEGCR ####[address] [address] Lymphocytes/100 WBC Auto (Bld)9 %Lzq59-50FifwqWooster Community HospitalComment on above:Performed By: #### ERTPF, CONNER, LIP, LIVP, TEGCR ####[address] [address] Monocytes Auto #/vol (Bld)1.23 10*3/uLHigh0.1-0.8[facility] HospitalComment on above:Performed By: #### ERTPF, CONNER, LIP, LIVP, TEGCR ####[address] [address] Monocytes/100 WBC Auto (Bld)5 %Normal1-7[facility] HospitalComment on above:Performed By: #### ERTPF, CONNER, LIP, LIVP, TEGCR ####[address] [address] Morphology Interp Eduard (Bld)ANISOCYTOSIS PRESENTNormalWooster Community HospitalComment on above: Result Comment: TOXIC GRANULATION PRESENTPerformed By: #### ERTPF, CONNER, LIP, LIVP, TEGCR ####[facility] [address] [place] [address] Neutrophil (Seg)85 %Qjvf04-03DffdeWooster Community HospitalComment on above: Performed By: #### ERTPF, CONNER, LIP, LIVP, TEGCR ####[address] [address] Nucleated RBC/100 WBC Ratio (Bld)1 per 100 QVWMzrz9ObcoeAvalon Municipal HospitalComment on above:Performed By: #### ERTPF, CONNER, LIP, LIVP, TEGCR ####[address] [address] Erythrocyte distribution width Auto Ratio (RBC)17.1 %High 11.8-14.4[facility] HospitalComment on above:Performed By: #### ERTPF, CONNER, LIP, LIVP, TEGCR ####[address] [address] Hematocrit Auto Volume Fraction (Bld)27.6 %Low40.7-50.3MSonoma Developmental CenterComment on above:Performed By: #### ERTPF, CONNER, LIP, LIVP, TEGCR ####[address] [address] Hemoglobin mass conc (Bld)8.4 g/dLLow13.0-17.0[facility] Comment on above:Performed By: #### ERTPF, CONNER, LIP, LIVP, TEGCR ####[address] [address] MCH Auto Entitic mass (RBC)30.3 meTayuup25.2-33.5[facility] HospitalComment on above: Performed By: #### ERTPF, CONNER, LIP, LIVP, TEGCR ####[address] [address] MCHC Auto mass conc (RBC)30.4 g/dLNormal 28.4-34.8[facility] HospitalComment on above:Performed By: #### ERTPF, CONNER, LIP, LIVP, TEGCR ####[address] [place] [address] MCV Auto Entitic volume (RBC)99.6 gSFarztx03.6-102.9[facility] HospitalComment on above:Performed By: #### ERTPF, CONNER, LIP, LIVP, TEGCR ####[place] [address] NRBC Automated0.0 per 100 WBCNormal0.0[facility] HospitalComment on above:Performed By: #### ERTPF, CONNER, LIP, LIVP, TEGCR ####[facility] [place] [address] Platelet mean volume Auto Entitic volume (Bld)10.9 fLNormal8.1-13.5[facility] HospitalComment on above: Performed By: #### ERTPF, CONNER, LIP, LIVP, TEGCR ####[facility] [address] [address] Platelets Auto #/vol (Bld)738 10*3/uLHigh 138-453MerAvalon Municipal HospitalComment on above:Performed By: #### ERTPF, CONNER, LIP, LIVP, TEGCR ####[place] [address] RBC Auto #/vol (Bld)2.77 10*6/uLLow4.21-5.77[facility] HospitalComment on above:Performed By: #### ERTPF, CONNER, LIP, LIVP, TEGCR ####[place] [address] WBC Auto #/vol (Bld)24.6 10*3/uLHigh3.5-11.3[facility] Hospital Of GardenaComment on above: Performed By: #### ERTPF, CONNER, LIP, LIVP, TEGCR ####[facility] [address] [place] [address] Auto Diff PerformedNOT REPORTEDSaint Luke'S North Hospital–Barry Roadal [facility] HospitalComment on above:Performed By: #### ERTPF, CONNER, LIP, LIVP, TEGCR ####[facility] [address] [place] [address] [phone] Auto #/vol (Bld)NOT REPORTEDSumma Health Barberton CampusComment on above:Performed By: #### ERTPF, CONNER, LIP, LIVP, TEGCR ####[address] [phone] morphology finding Nom (Bld)NOT REPORTEDSumma Health Barberton CampusComment on above:Performed By: #### ERTPF, CONNER, LIP, LIVP, TEGCR ####[facility] [address] [place] [address] WBC MorphologyNOT REPORTEDSumma Health Barberton CampusComment on above:Performed By: #### ERTPF, CONNER, LIP, LIVP, TEGCR ####[facility] [address] [place] [address] ABDOMEN PELVIS W IV CONTRASTon [id number] ABDOMEN PELVIS W IV CONTRAST EXAMINATION:CT OF THE ABDOMEN AND PELVIS WITH CONTRAST 01/29/2018 5:37 pmTECHNIQUE:CT of the abdomenand pelvis was performed with the administration ofintravenous contrast. Multiplanar reformatted images are provided for review.Dose modulation, iterative reconstruction, and/or weight based adjustment ofthe mA/kV was utilized to reduce the radiation dose to as low as reasonablyachievable.COMPARISON:January 27, 2018HISTORY:ORDERING SYSTEM PROVIDED HISTORY: ABDOMINAL DISTENSIONTECHNOLOGIST PROVIDED HISTORY:FINDINGS:Evaluation is limited by motion.Lower Chest: Small bilateral pleural effusions.Associated bibasilar lungopacities likely represent atelectasis. No pericardial effusion. Contrastwithin the distal esophagus likely represents reflux.Organs: No liver lesion. Prior cholecystectomy. No pancreatic lesion.Splenectomy. No adrenal lesion. No hydronephrosis. Left renal cyst.GI/Bowel: Contrast is seen refluxing within the distal esophagus. Enterictube terminates within the stomach. Multiple dilated loops of small bowelare seen. Anastomosis is seen within the right mid abdomen. Nonspec ificthickened loop of jejunum is seen within the left upper quadrant. Sigmoidcolon and rectum appear thickened even when accounting for incompletedistension.Pelvis: No bladder calculus. Small amount of free fluid is seen within thepelvis.Peritoneum/Retroperitoneum: No definite adenopathy. No aorticaneurysm.Atherosclerotic calcification of the abdominal aorta and iliac [...] likely indicates reflux.Interpreted by:NADEGE Escalanteigned by:Cassie Torres MD01/29/inal resultNormalWooster Community HospitalTriglycerideson 62-62-3452Zfvuyaunklcp mass thlm077 mg/dLNormal<150W[facility] HospitalComment on above:Result Comment: Triglyceride Guidelines: <150 Desirable 150-199 Borderline 200-499 High >499 Very high Based on AHA Guidelines for fasting triglyceride, February 2012.Performed By: #### ERTPF, CONNER, LIP, LIVP, TEGCR ####[address] [place] [id number] Triglyceride mass aiec757 mg/dLNormal<150W[facility] Community HospitalComment on above:Result Comment: Triglyceride Guidelines: <150 Desirable 150-199 Borderline 200-499 High >499 Very high Based on AHA Guidelines for fasting triglyceride, February 2012.Performed By: #### ERTPF, CONNER, LIP, LIVP, TEGCR ####[address] [place], [place] [address]23[address] XR CHEST PORTABLEon [id number] CHEST PORTABLEEXAMINATION:SINGLE XRAY VIEW OF THE CHEST01/29/2018 7:12 amCOMPARISON:01/27/2018HISTORY:ORDERING SYSTEM PROVIDED HISTORY: comparisonTECHNOLOGIST PROVIDED HISTORY:comparisonOn going [...] atelectasis.2. Emphysema.Interpreted by:NADEGE Braunigned by:Cassie Albarado MD01/29/18Final resultNormalWooster Community HospitalBasic Metabolic Profon 01-28-2018(cont.)NormalWooster Community HospitalComment on above:Result Comment: Average GFR for 50-59 years old: 93 mL/min/1.73sq mChronic Kidney Disease: <60 mL/min/1.73sq mKidney failure: <15 mL/min/1.73sq meGFR calculated using average adult body mass. Additional eGFR calculator available at:http://www.WePow.com/multiple_crcl_2012.htmPerformed By: #### ERTPF, CONNER, LIP, LIVP, TEGCR ####[address] [place], [place] [id number] Anion gap 3 molar conc12 mmol/LNormal-[facility] HospitalComment on above:Performed By: #### ERTPF, CONNER, LIP, LIVP, TEGCR ####[place] [address] [place] [address] Calcium mass conc7.7 mg/dLLow8.6-10.4[facility] HospitalComment on above: Performed By: #### ERTPF, CONNER, LIP, LIVP, TEGCR ####[address] [address] Chloride molar ulbo732 mmol/LPswcws31-646 [facility] HospitalComment on above:Performed By: #### ERTPF, CONNER, LIP, LIVP, TEGCR ####[address] [address] YL1 molar conc29 mmol/MElqbuv11-13LkqeeWooster Community Hospital Comment on above:Performed By: #### ERTPF, CONNER, LIP, LIVP, TEGCR ####[address] [address] Creatinine mass conc1.67 mg/dLHigh0.70-1.20[facility] HospitalComment on above:Performed By: #### ERTPF, CONNER, LIP, LIVP, TEGCR ####[address] [address] GFR, Amer52 mL/minLow>60[facility] HospitalComment on above:Performed By: #### ERTPF, CONNER, LIP, LIVP, TEGCR ####[address] [address] GFR,non Amer43 mL/minLow>60[facility] HospitalComment on above: Performed By: #### ERTPF, CONNER, LIP, LIVP, TEGCR ####[address] [address] Glucose mass mmoe814 mg/hSVshh79-84EjdsdSonoma Developmental CenterComment on above:Performed By: #### ERTPF, CONNER, LIP, LIVP, TEGCR ####[place] [address] [place] [address] Potassium molar conc3.4 mmol/LLow3.7-5.3[facility] Hospital Of GardenaComment on above:Performed By: #### ERTPF, CONNER, LIP, LIVP, TEGCR ####[address] [address] Sodium molar bbxh225 mmol/TUwqh234-371NlaarWooster Community HospitalComment on above:Performed By: #### ERTPF, CONNER, LIP, LIVP, TEGCR ####[place] [address] [place] [address] Urea nitrogen mass conc35 mg/dLHigh6-20[facility] HospitalComment on above:Performed By: #### ERTPF, CONNER, LIP, LIVP, TEGCR ####[address] [address] BUN/CRE Ratio NOT REPORTEDNoal920W[facility] HospitalComment on above:Performed By: #### ERTPF, CONNER, LIP, LIVP, TEGCR ####[place] [address] [place] [address] Staging:NOT REPORTEDNormalWooster Community HospitalComment on above:Performed By: #### ERTPF, CONNER, LIP, LIVP, TEGCR ####[address] [address] (cont.)Normal [facility] HospitalComment on above:Result Comment: Average GFR for 50-59 years old: 93 mL/min/1.73sq mChronic Kidney Disease: <60 mL/min/1.73sq mKidney failure: <15 mL/min/1.73sq meGFR calculated using average adult body mass. Additional eGFR calculator available at:http://www.WePow.com/multiple_crcl_2012.htmPerformed By: #### ERTPF, CONNER, LIP, LIVP, TEGCR ####[facility] [address] [place] 43[address] Anion gap 3 molar conc11 mmol/LNormal9-17[facility] HospitalComment on above:Performed By: #### ERTPF, CONNER, LIP, LIVP, TEGCR ####[facility] [address] [place] [address] Calcium mass conc8.2 mg/dLLow8.6-10.4[facility] HospitalComment on above: Performed By: #### ERTPF, CONNER, LIP, LIVP, TEGCR ####[address] [address] Chloride molar conc99 mmol/EWqclzh06-047 [facility] HospitalComment on above:Performed By: #### ERTPF, CONNER, LIP, LIVP, TEGCR ####[address] [address] WT6 molar conc32 mmol/DBfce32-89EiwyrWooster Community Hospital Comment on above:Performed By: #### ERTPF, CONNER, LIP, LIVP, TEGCR ####[address] [address] Creatinine mass conc1.81 mg/dLHigh0.70-1.20[facility] HospitalComment on above:Performed By: #### ERTPF, CONNER, LIP, LIVP, TEGCR ####[facility] [address] [place] [address] GFR, Amer47 mL/minLow>60[facility] HospitalComment on above:Performed By: #### ERTPF, CONNER, LIP, LIVP, TEGCR ####[facility] [address] [place] [address] GFR,non Amer39 mL/minLow>60MerAvalon Municipal HospitalComment on above: Performed By: #### ERTPF, CONNER, LIP, LIVP, TEGCR ####[facility] [address] [place] [address] Glucose mass ayxt298 mg/jYOaar44-13Hyxae [facility] Hospital Of GardenaComment on above:Performed By: #### ERTPF, CONNER, LIP, LIVP, TEGCR ####[facility] [address] [place] [address] Potassium molar conc4.7 mmol/LNormal3.7-5.3MSonoma Developmental Center Comment on above:Performed By: #### ERTPF, CONNER, LIP, LIVP, TEGCR ####[address] [address] Sodium molar xdmq275 mmol/FAexgzi984-864OvnjvWooster Community HospitalComment on above:Performed By: #### ERTPF, CONNER, LIP, LIVP, TEGCR ####[address] [address] Urea nitrogen mass conc39 mg/dLHigh6-20[facility] HospitalComment on above:Performed By: #### ERTPF, CONNER, LIP, LIVP, TEGCR ####[facility] [address] [place] [address] BUN/CRE RatioNOT REPORTEDNormal9-20[facility] HospitalComment on above:Performed By: #### ERTPF, CONNER, LIP, LIVP, TEGCR ####[address] [address] Staging:NOT REPORTEDNormalWooster Community HospitalComment on above:Performed By: #### ERTPF, CONNER, LIP, LIVP, TEGCR ####[facility] [address] [place] [address] C- Reactive Proteinon 16-82-6829LKZ mass zcsq817.1 mg/LHigh0.0-5.0[facility] HospitalComment on above:Result Comment: ADDED ONPerformed By: #### ERTPF, CONNER, LIP, LIVP, TEGCR ####[place] [address] CBC with Diffon [id number]. Basophil0.00 k/uLNormal0.0-0.2 [facility] HospitalComment on above:Performed By: #### ERTPF, CONNER, LIP, LIVP, TEGCR ####[place] [address] Abs.Imm.Granulocyte0.00 k/uLNormal0.00-0.30[facility] HospitalComment on above:Performed By: #### ERTPF, CONNER, LIP, LIVP, TEGCR ####[place] [phone] Abs.Neutrophil (Seg)29.16 k/uLHigh1.8-7.7[facility] HospitalComment on above: Performed By: #### ERTPF, CONNER, LIP, LIVP, TEGCR ####[place] [phone] Basophils/100 WBC Auto (Bld)0 %Normal0-2 [facility] HospitalComment on above:Performed By: #### ERTPF, CONNER, LIP, LIVP, TEGCR ####[place] [address] Eosinophils Auto #/vol (Bld)0.00 10*3/uLNormal0.0-0.4[facility] HospitalComment on above:Performed By: #### ERTPF, CONNER, LIP, LIVP, TEGCR ####[address] [address] Eosinophils/100 WBC Auto (Bld)0 %Low1-4[facility] HospitalComment on above:Performed By: #### ERTPF, CONNER, LIP, LIVP, TEGCR ####[address] [address] Immature granulocytes #/vol (Bld)0 %Dtnkfg6SgfdwWooster Community HospitalComment on above:Performed By: #### ERTPF, CONNER, LIP, LIVP, TEGCR ####[address] [address] Lymphocytes Auto #/vol (Bld)1.62 10*3/uLNormal 1.0-4.8[facility] HospitalComment on above:Performed By: #### ERTPF, CONNER, LIP, LIVP, TEGCR ####[address] [address] Lymphocytes/100 WBC Auto (Bld)5 %Lnw27-10WttfdWooster Community HospitalComment on above:Performed By: #### ERTPF, CONNER, LIP, LIVP, TEGCR ####[address] [address] Monocytes Auto #/vol (Bld)1.62 10*3/uLHigh0.1-0.8[facility] HospitalComment on above:Performed By: #### ERTPF, CONNER, LIP, LIVP, TEGCR ####[address] [address] Monocytes/100 WBC Auto (Bld)5 %Normal1-7 [facility] HospitalComment on above:Performed By: #### ERTPF, CONNER, LIP, LIVP, TEGCR ####[address] [address] Morphology Interp Eduard (Bld)ANISOCYTOSIS PRESENTNormalMerAvalon Municipal HospitalComment on above:Result Comment: INCREASED BANDS PRESENT Performed By: #### ERTPF, CONNER, LIP, LIVP, TEGCR ####[address] [address] Neutrophil (Seg)90 %Dujh34-96HslonWooster Community HospitalComment on above:Performed By: #### ERTPF, CONNER, LIP, LIVP, TEGCR ####[address] [address] WBC Auto #/vol (Bld)32.4 10*3/uLCritically high3.5-11.3MSonoma Developmental CenterComment on above:Result Comment: TESTCONFIRMEDPerformed By: #### ERTPF, CONNER, LIP, LIVP, TEGCR ####[address] [address] Erythrocyte distribution width Auto Ratio (RBC)16.6 %High11.8-14.4 [facility] HospitalComment on above:Performed By: #### ERTPF, CONNER, LIP, LIVP, TEGCR ####[address] [address] [phone] Auto Volume Fraction (Bld)30.3 %Low40.7-50.3MSonoma Developmental CenterComment on above:Performed By: #### ERTPF, CONNER, LIP, LIVP, TEGCR ####[address] [address] Hemoglobin mass conc (Bld)9.6 g/dLLow13.0-17.0[facility] Comment on above:Performed By: #### ERTPF, CONNER, LIP, LIVP, TEGCR ####[address] [address] MCH Auto Entitic mass (RBC)30.6 wdOkkdjv51.2-33.5[facility] HospitalComment on above: Performed By: #### ERTPF, CONNER, LIP, LIVP, TEGCR ####[address] [address] MCHC Auto mass conc (RBC)31.7 g/dLNormal 28.4-34.8[facility] HospitalComment on above:Performed By: #### ERTPF, CONNER, LIP, LIVP, TEGCR ####[place] [address] MCV Auto Entitic volume (RBC)96.5 hWLuyeua11.6-102.9[facility] HospitalComment on above:Performed By: #### ERTPF, CONNER, LIP, LIVP, TEGCR ####[place] [address] NRBC Automated0.0 per 100 WBCNormal0.0[facility] HospitalComment on above:Performed By: #### ERTPF, CONNER, LIP, LIVP, TEGCR ####[place] [address] Platelet mean volume Auto Entitic volume (Bld)10.9 fLNormal8.1-13.5[facility] HospitalComment on above: Performed By: #### ERTPF, CONNER, LIP, LIVP, TEGCR ####[place] [address] Platelets Auto #/vol (Bld)642 10*3/uLHigh 138-453[facility] HospitalComment on above:Performed By: #### ERTPF, CONNER, LIP, LIVP, TEGCR ####[place] [address] RBC Auto #/vol (Bld)3.14 10*6/uLLow4.21-5.77[facility] GardenaComment on above:Performed By: #### ERTPF, CONNER, LIP, LIVP, TEGCR ####[facility] [address] [place] [address] Auto Diff PerformedNOT REPORTEDNormalWooster Community HospitalComment on above: Performed By: #### ERTPF, CONNER, LIP, LIVP, TEGCR ####[facility] [address] [place] [address] Platelets Auto #/vol (Bld)NOT REPORTED NormalWooster Community HospitalComment on above:Performed By: #### ERTPF, CONNER, LIP, LIVP, TEGCR ####[facility] [address] [place] [address] [phone] morphology finding Nom (Bld)NOT REPORTEDNoalWooster Community HospitalComment on above:Performed By: #### ERTPF, CONNER, LIP, LIVP, TEGCR ####[facility] [address] [place], [place] [phone] MorphologyNOT REPORTEDNoalWooster Community HospitalComment on above: Performed By: #### ERTPF, CONNER, LIP, LIVP, TEGCR ####[facility] [address] [place], [place] [phone] ABDOMEN PELVIS W IV CONTRASTon [id number] ABDOMEN PELVIS W IV CONTRASTEXAMINATION:CT OF THE ABDOMEN AND PELVIS WITH CONTRAST 01/27/2018 11:07 pmTECHNIQUE:CT of the abdomen and pelvis was performed with the administration ofintravenous contrast. Multiplanar reformatted images are provided for review.Dose modulation, iterative reconstruction, and/or weight based adjustment ofthe mA/kV was utilized to reduce the radiation dose to as low as reasonablyachievable.COMPARISO N:01/25/2018HISTORY:ORDERING SYSTEM PROVIDED HISTORY: vomiting/distention/possible pneumatosisTECHNOLOGIST PROVIDED HISTORY:FINDINGS:Lower [...] Contrast which wasmainly in the small bowel onthe previous is not seen mainly in the distalcolon. There is also some fluid in mild distention of the right colon.Findings suggestive of ileus. No clear transition point to suggestobstruction. No clear evidence for pneumatosis. There is fecalization ofsome of the small bowel contents.Pelvis: Urinary bladder grossly normal.Peritoneum/Retroperitoneum: Atherosclerotic disease. No ascites. Nosignificant lymphadenopathy. In in the anterior right mid abdomen there issome stranding of the peritoneal fat unchanged. Probably related to recentpostsurgical changes.Bones/Soft Tissues: Laparotomy skin leia noted. No acute abnormality ofthe bones. The superficial soft tissues show no significant abnormalities.IMPRESSION: 1. Findings suggestive of small-bowel ileus. Nonetheless, contrast which wasinsmall bowel on the prior exam has progressed into the distal colon.2. No clear evidence for pneumatosis.Interpreted by:NADEGE Dormanigned by:Hudson Anaya MD01/27/18Final resultNormalMerAvalon Municipal HospitalLiver Profileon 54-23-3139Sktuchz mass conc2.5 g/dLLow 3.5-5.2[facility] Hospital Of GardenaComment on above:Performed By: #### ERTPF, CONNER, LIP, LIVP, TEGCR ####[facility] [address] [place] [address] Albumin/Globulin mass ratio0.7 {ratio}Low1.0-2.5Wooster Community HospitalComment on above:Performed By: #### ERTPF, CONNER, LIP, LIVP, TEGCR ####[facility] [address] [place] [address] Alkaline Phos77 U/ZJdwrwk13-035UocgwWooster Community HospitalComment on above: Performed By: #### ERTPF, CONNER, LIP, LIVP, TEGCR ####[address] [address] ALT enzyme act/vol25 U/LNormal5-41W[facility] Community HospitalComment on above:Performed By: #### ERTPF, CONNER, LIP, LIVP, TEGCR ####[address] [address] AST enzyme act/vol55 U/LHigh<40W[facility]oster Community HospitalComment on above: Performed By: #### ERTPF, CONNER, LIP, LIVP, TEGCR ####[address] [address] Bilirubin Ql (U)1.32 mg/dLHigh0.3-1.2 Wo[facility] Community HospitalComment on above:Performed By: #### ERTPF, CONNER, LIP, LIVP, TEGCR ####[address] [address] Bilirubin, Indirect0.59 mg/dLNormal0.00-1.00Wooster Community HospitalComment on above:Performed By: #### ERTPF, CONNER, LIP, LIVP, TEGCR ####[address] [address] Bilirubin.direct mass conc0.73 mg/dLHigh<0.31[facility] Comment on above:Performed By: #### ERTPF, CONNER, LIP, LIVP, TEGCR ####[address] [address] Protein mass conc6.3 g/dLLow6.4-8.3MSonoma Developmental CenterComment on above:Performed By: #### ERTPF, CONNER, LIP, LIVP, TEGCR ####[facility] [address] [place] [address] Globulin Calculated mass conc (S)NOT REPORTEDNormal1.5-3.8 [facility] HospitalComment on above:Performed By: #### ERTPF, CONNER, LIP, LIVP, TEGCR ####[facility] [address] [place] [address] Magnesiumon 66-98-8473Htkcqlmsb mass conc2.7 mg/dLHigh1.6-2.6MSonoma Developmental CenterComment on above:Performed By: #### ERTPF, CONNER, LIP, LIVP, TEGCR ####Saritha [address] [place] [address] Phosphorus, Inorg.on 40-75-0856Isxracxwnv, Inorg.3.6 mg/dLNormal2.5-4.5W[facility]oster Community HospitalComment on above:Performed By: #### ERTPF, CONNER, LIP, LIVP, TEGCR ####[address] [address] Prealbuminon 26-42-4597Xlqewlmkbk mass conc4.8 mg/sKXmg78-87RdejaWooster Community HospitalComment on above:Performed By: #### ERTPF, CONNER, LIP, LIVP, TEGCR ####[address] [place] [address] TSH w/reflex to FT4on 12-50-0659Vxpntudqqnp Qn2.70 m[IU]/LNormal0.30-5.00W[facility]oster Community HospitalComment on above:Performed By: #### ERTPF, CONNER, LIP, LIVP, TEGCR ####[facility] [address] [place] [address] Transferrinon 31-03-6062Fhslaimvirs mass vjze736 mg/nHSjr865-233XuhnhWooster Community HospitalComment on above:Performed By: #### ERTPF, CONNER, LIP, LIVP, TEGCR ####Sarithaapp2you [address] [place], [place] [address] XR CHEST PORTABLEon [id number] CHEST PORTABLEEXAMINATION:SINGLE XRAY VIEW OF THE CHEST, 01/27/2018 9:18 amCOMPARISON:01/26/2018HISTORY:ORDERING SYSTEM PROVIDED HISTORY: Pleural effusions f/uTECHNOLOGIST PROVIDED [...] with associated airspacedisease.2. Metallic object overlying the chestcorresponding to spine brace.3. Braided metallic object at the base of the neck is felt to be external tothe patient. Please correlate clinically.Interpreted by:NADEGE Lancasterigned by:Hebert Best MD01/28/18Final resultNormalMerAvalon Municipal HospitalBasic Metabolic Profon 01-27-2018(cont.)NormalMerAvalon Municipal HospitalComment on above:Result Comment: Average GFR for 50-59 years old: 93 mL/min/1.73sq mChronic Kidney Disease: <60 mL/min/1.73sq mKidney failure: <15 mL/min/1.73sq meGFR calculated using average adult body mass. Additional eGFR calculator available at:http://www.WePow.com/multiple_crcl_2012.htmPerformed By: #### ERTPF, CONNER, LIP, LIVP, TEGCR ####Filomena [address] [place], [place] [address] Anion gap 3 molar conc12 mmol/LNormal9-17W[facility]oster Community HospitalComment on above:Performed By: #### ERTPF, CONNER, LIP, LIVP, TEGCR ####[facility] [address] [place] [address] Calcium mass conc8.9 mg/dLNormal8.6-10.4W[facility] Community HospitalComment on above: Performed By: #### ERTPF, CONNER, LIP, LIVP, TEGCR ####[facility] [address] [place] [address] Chloride molar xkyq405 mmol/UBahrmj16-515 [facility] Community HospitalComment on above:Performed By: #### ERTPF, CONNER, LIP, LIVP, TEGCR ####[address] [place] [address] UT1 molar conc31 mmol/HIzrulc49-09SlwybWooster Community Hospital Comment on above:Performed By: #### ERTPF, CONNER, LIP, LIVP, TEGCR ####[address] [address] Creatinine mass conc1.26 mg/dLHigh0.70-1.20W[facility]oster Community HospitalComment on above:Performed By: #### ERTPF, CONNER, LIP, LIVP, TEGCR ####[address] [place] [address] GFR, Amer>60Normal>60W[facility] Community HospitalComment on above:Performed By: #### ERTPF, CONNER, LIP, LIVP, TEGCR ####[facility] [address] [place] [address] GFR,non Amer59 mL/minLow>60Wooster Community HospitalComment on above: Performed By: #### ERTPF, CONNER, LIP, LIVP, TEGCR ####[facility] Bx[address]jsfd[address] [place] [address] Glucose mass ztig812 mg/rTDnns84-37WkgkqSonoma Developmental CenterComment on above:Performed By: #### ERTPF, CONNER, LIP, LIVP, TEGCR ####[facility] [address]wrlyciacfaf[address] [place] [address] Potassium molar conc3.9 mmol/LNormal3.7-5.3MSonoma Developmental Center Comment on above:Performed By: #### ERTPF, CONNER, LIP, LIVP, TEGCR ####Sar[facility]a [address] [place] [address] Sodium molar zykd052 mmol/RSgclru454-729IyrtcWooster Community HospitalComment on above:Performed By: #### ERTPF, CONNER, LIP, LIVP, TEGCR ####[facility]ie Hazqkknmtuak[address] [place] [address] Urea nitrogen mass conc27 mg/dLHigh6-20W[facility] Community HospitalComment on above:Performed By: #### ERTPF, CONNER, LIP, LIVP, TEGCR ####[facility] [address] [place] [address] BUN/CRE RatioNOT REPORTEDNormal9-20W[facility] HospitalComment on above:Performed By: #### ERTPF, CONNER, LIP, LIVP, TEGCR ####[facility] [address] [place] [address] Staging:NOT REPORTEDNormalWooster Community HospitalComment on above:Performed By: #### ERTPF, CONNER, LIP, LIVP, TEGCR ####Saritha [address] [place], [place] [phone] with Diffon 41-51-3608Hgr. Basophil0.00 k/uLNormal0.0-0.2MSonoma Developmental CenterComment on above:Performed By: #### ERTPF, CONNER, LIP, LIVP, TEGCR ####[facility] [address] [place] [address] Abs.Imm.Granulocyte0.24 k/uLNormal0.00-0.30[facility] Comment on above:Performed By: #### ERTPF, CONNER, LIP, LIVP, TEGCR ####[facility] [address]ks[address] [place] [address] Abs.Neutrophil (Seg) 19.29 k/uLHigh1.8-7.7W[facility] Community HospitalComment on above:Performed By: #### ERTPF, CONNER, LIP, LIVP, TEGCR ####[place] [address] Basophils/100 WBC Auto (Bld)0 %Normal0-2MSonoma Developmental CenterComment on above:Performed By: #### ERTPF, CONNER, LIP, LIVP, TEGCR ####[place] [address] Eosinophils Auto #/vol (Bld)0.96 10*3/uLHigh0.0-0.4W[facility] Community HospitalComment on above:Performed By: #### ERTPF, CONNER, LIP, LIVP, TEGCR ####[place] [address] Eosinophils/100 WBC Auto (Bld)4 %Normal1-4W[facility] Community HospitalComment on above:Performed By: #### ERTPF, CONNER, LIP, LIVP, TEGCR ####[place] [address] Immature granulocytes #/vol (Bld)1 %Wruw3BpmsrAvalon Municipal HospitalComment on above:Performed By: #### ERTPF, CONNER, LIP, LIVP, TEGCR ####[address] [address] Lymphocytes Auto #/vol (Bld)2.65 10*3/uLNormal1.0-4.8W[facility] HospitalComment on above:Performed By: #### ERTPF, CONNER, LIP, LIVP, TEGCR ####[facility] [address] [place] [address] Lymphocytes/100 WBC Auto (Bld)11 %Szm74-30SlalzWooster Community HospitalComment on above:Performed By: #### ERTPF, CONNER, LIP, LIVP, TEGCR ####[address] [address] Monocytes Auto #/vol (Bld)0.96 10*3/uLHigh 0.1-0.8W[facility] Community HospitalComment on above:Performed By: #### ERTPF, CONNER, LIP, LIVP, TEGCR ####[address] [address] Monocytes/100 WBC Auto (Bld)4 %Normal1-7W[facility] Community HospitalComment on above:Performed By: #### ERTPF, CONNER, LIP, LIVP, TEGCR ####[address] [address] Morphology Interp Eduard (Bld)ANISOCYTOSIS PRESENTNormalWooster Community Hospital Comment on above:Result Comment: INCREASED BANDS PRESENTTOXIC GRANULATION PRESENTPerformed By: #### ERTPF, CONNER, LIP, LIVP, TEGCR ####[address] [address] Neutrophil (Seg)80 %High 36-66W[facility] Community HospitalComment on above:Performed By: #### ERTPF, CONNER, LIP, LIVP, TEGCR ####[address] [address] Nucleated RBC/100 WBC Ratio (Bld)1 per 100 NVEJkdx1PswmlWooster Community HospitalComment on above:Performed By: #### ERTPF, CONNER, LIP, LIVP, TEGCR ####[facility] [address] [place] [address] Erythrocyte distribution width Auto Ratio (RBC)16.1 %High11.8-14.4[facility] Community HospitalComment on above:Performed By: #### ERTPF, CONNER, LIP, LIVP, TEGCR ####[address] [address] Hematocrit Auto Volume Fraction (Bld)31.8 %Low40.7-50.3MercKindred HospitalComment on above:Performed By: #### ERTPF, CONNER, LIP, LIVP, TEGCR ####[address] [address] Hemoglobin mass conc (Bld)10.1 g/dLLow13.0-17.0W[facility] Community HospitalComment on above:Performed By: #### ERTPF, CONNER, LIP, LIVP, TEGCR ####[address] [address] MCH Auto Entitic mass (RBC)30.5 pgNormal 25.2-33.5W[facility] Community HospitalComment on above:Performed By: #### ERTPF, CONNER, LIP, LIVP, TEGCR ####[address] [address] MCHC Auto mass conc (RBC)31.8 g/fDStznhs36.4-34.8W[facility] HospitalComment on above:Performed By: #### ERTPF, CONNER, LIP, LIVP, TEGCR ####[address] [address] MCV Auto Entitic volume (RBC)96.1 iJJaphfn21.6-102.9[facility] Comment on above:Performed By: #### ERTPF, CONNER, LIP, LIVP, TEGCR ####[facility] [place] [address] NRBC Automated0.1 per 100 WBCHigh0.0W[facility] Community HospitalComment on above:Performed By: #### ERTPF, CONNER, LIP, LIVP, TEGCR ####Filomena [address] [address] Platelet mean volume Auto Entitic volume (Bld)11.0 fLNormal 8.1-13.5[facility] HospitalComment on above:Performed By: #### ERTPF, CONNER, LIP, LIVP, TEGCR ####[address] [address] Platelets Auto #/vol (Bld)488 10*3/qJJmtc742-396WorjsWooster Community HospitalComment on above:Performed By: #### ERTPF, CONNER, LIP, LIVP, TEGCR ####[address] [address] RBC Auto #/vol (Bld)3.31 10*6/uLLow4.21-5.77[facility] HospitalComment on above:Performed By: #### ERTPF, CONNER, LIP, LIVP, TEGCR ####[address] [address] WBC Auto #/vol (Bld)24.1 10*3/uLHigh3.5-11.3MSonoma Developmental CenterComment on above:Performed By: #### ERTPF, CONNER, LIP, LIVP, TEGCR ####[address] [address] Auto Diff PerformedNOT REPORTEDNormalWooster Community HospitalComment on above:Performed By: #### ERTPF, CONNER, LIP, LIVP, TEGCR ####[address] [address] Platelets Auto #/vol (Bld)NOT REPORTEDNoWhite Hospital Comment on above:Performed By: #### ERTPF, CONNER, LIP, LIVP, TEGCR ####[facility] [address] [place] [address] [phone] morphology finding Nom (Bld)NOT REPORTEDSumma Health Barberton CampusComment on above: Performed By: #### ERTPF, CONNER, LIP, LIVP, TEGCR ####[facility] [address] [place] [address] [phone] MorphologyNOT REPORTEDSumma Health Barberton CampusComment on above:Performed By: #### ERTPF, CONNER, LIP, LIVP, TEGCR ####[facility] [address] [place] [address] Magnesiumon 34-42-1241Vasxtbluj mass conc2.6 mg/dLNormal1.6-2.6MSonoma Developmental CenterComment on above:Performed By: #### ERTPF, CONNER, LIP, LIVP, TEGCR ####[facility] [address] [place] [address] [phone], Inorg.on 64-50-0456Ecjbnsumcb, Inorg.4.5 mg/dLNormal2.5-4.5[facility] HospitalComment on above:Performed By: #### ERTPF, CONNER, LIP, LIVP, TEGCR ####[facility] [address] [place] [address] Vancomycin,Randomon 52-86-6576Wfegpvwrjd74.1 ug/mLNormalWooster Community HospitalComment on above:Result Comment: Higher trough serum vancomycin concentrations of 15-20 ug/mL are recommended for complicated infections such as bacteremia, endocarditis, osteomyelitis, meningitis, and hospital acquired pneumonia.Performed By: #### ERTPF, CONNER, LIP, LIVP, TEGCR ####[facility] [address] [place] [address] Date last dose,NOT REPORTEDNormalMercy Memorial Hospital Of GardenaComment on above:Performed By: #### ERTPF, CONNER, LIP, LIVP, TEGCR ####[facility] [address] [place] [address] Dose amount,NOT REPORTEDNormalMercy Memorial Hospital Of GardenaComment on above:Performed By: #### ERTPF, CONNER, LIP, LIVP, TEGCR ####[facility] [address] [place] [address] Time last dose,NOT REPORTEDNormalWooster Community HospitalComment on above:Performed By: #### ERTPF, CONNER, LIP, LIVP, TEGCR ####[facility] [address]ph[address] [place] [address] XR ABDOMEN (KUB) (SINGLE AP VIEW)on 92-99-9485PP ABDOMEN (KUB) (SINGLE AP VIEW)EXAMINATION:SINGLE SUPINE XRAY VIEW(S) OF THE ABDOMEN01/27/2018 6:12 [...] change in gaseous intestinal distention, and bibasilar pulmonaryopacities.Interpreted by:NADEGE Gabrieligned by:Molly Moreno MD01/27/18inal resultNormalMerAvalon Municipal HospitalXR ABDOMEN (KUB) (SINGLE AP VIEW)EXAMINATION:SINGLE SUPINE XRAY VIEW(S) OF THE ABDOMEN01/27/2018 3:41 [...] the left side of the abdomen, concerning forpneumatosis.Possibility of bowel ischemia is not excluded.The findings were sent to the Radiology Results Communication Center at 4:00pm on 01/27/2018 to be communicated to a licensed caregiver.Interpreted by:Mcclainigned by:Cecile García, DO01/27/18inal resultNormalMercy Memorial Hospital Of GardenaXR LUMBAR SPINE (2-3 VIEWS)on 08-42-0610EW LUMBAR SPINE (2-3 VIEWS)EXAMINATION:3 XRAY VIEWS OF THE LUMBAR SPINE01/27/2018 10:46 amCOMPARISON:Abdominal radiograph January 26, 2018. CT abdomen and pelvis January.HISTORY:ORDERING SYSTEM PROVIDED HISTORY: L1 fx, please obtain standing upright APand lateral views with brace onTECHNOLOGIST PROVIDED HISTORY:L1fx, please obtain standing upright AP and lateral views with brace onFINDINGS:The patient is imagedin a lumbar brace. The L1 compression fracture [...] abdominal surgery is noted, consistent with ileus.Interpreted by:Fidel Marley MDSigned by:Fidel Marley MD01/27/18Final resultNormalWooster Community HospitalBasic Metabolic Profon 01-26-2018(cont.)NormalWooster Community HospitalComment on above: Result Comment: Average GFR for 50-59 years old: 93 mL/min/1.73sq mChronic Kidney Disease: <60 mL/min/1.73sq mKidney failure: <15 mL/min/1.73sq meGFR calculated using average adult body mass. Additional eGFR calculator available at:http://www.Blushr/multiple_crcl_2012.htmPerformed By: #### ERTPF, CONNER, LIP, LIVP, TEGCR ####[facility] [address] [place] [address] Anion gap 3 molar conc13 mmol/LNormal9-17[facility] HospitalComment on above:Performed By: #### ERTPF, CONNER, LIP, LIVP, TEGCR ####[facility] [address]wl[address] [place] [address] Calcium mass conc8.3 mg/dLLow8.6-10.4[facility] HospitalComment on above: Performed By: #### ERTPF, CONNER, LIP, LIVP, TEGCR ####[facility] [address]bi[address] [place] [address] Chloride molar conc95 mmol/JRhp68-199 [facility] HospitalComment on above:Performed By: #### ERTPF, CONNER, LIP, LIVP, TEGCR ####[facility] [address] [place] [address] NG3 molar conc31 mmol/OYqovte07-50ZafxdWooster Community Hospital Comment on above:Performed By: #### ERTPF, CONNER, LIP, LIVP, TEGCR ####[facility] [address]sr[address] [place] [address] Creatinine mass conc1.14 mg/dLNormal0.70-1.20[facility] Hospital Of GardenaComment on above:Performed By: #### ERTPF, CONNER, LIP, LIVP, TEGCR ####[facility] [address] [place] [address] GFR, Amer>60Normal>60[facility] Of GardenaComment on above:Performed By: #### ERTPF, CONNER, LIP, LIVP, TEGCR ####[facility] [address] [place] [address] GFR,non Amer>60Normal>60MerAvalon Municipal HospitalComment on above: Performed By: #### ERTPF, CONNER, LIP, LIVP, TEGCR ####[address] [address] Glucose mass gshg918 mg/dZZqfo33-13Ok[facility] Hospital Of GardenaComment on above:Performed By: #### ERTPF, CONNER, LIP, LIVP, TEGCR ####[place] [address] Potassium molar conc3.2 mmol/LLow3.7-5.3[facility] Of GardenaComment on above:Performed By: #### ERTPF, CONNER, LIP, LIVP, TEGCR ####[address] [address] Sodium molar kubv361 mmol/YGldqiq147-360TebjwAvalon Municipal HospitalComment on above:Performed By: #### ERTPF, CONNER, LIP, LIVP, TEGCR ####[place] [address] Urea nitrogen mass conc21 mg/dLHigh6-20MerAvalon Municipal HospitalComment on above:Performed By: #### ERTPF, CONNER, LIP, LIVP, TEGCR ####[facility] [address] [place] [address] BUN/CRE RatioNOT REPORTEDNormal9-20[facility] HospitalComment on above:Performed By: #### ERTPF, CONNER, LIP, LIVP, TEGCR ####Sar[address] [place] [address] Staging:NOT REPORTEDNormalMerAvalon Municipal HospitalComment on above:Performed By: #### ERTPF, CONNER, LIP, LIVP, TEGCR ####Sarith[facility] [address] [place], [place] [phone] Natri. Peptideon 02-48-7747Tmcpzxmwyto peptide B mass conc (Bld)2216 pg/mLHigh <300[facility] HospitalComment on above:Result Comment: Pro-BNP results cannot be compared to BNP results.Performed By: #### ERTPF, CONNER, LIP, LIVP, TEGCR ####Filomena [address] [place] [address] Natriuretic peptide B mass conc (Bld)NormalWooster Community Hospital Comment on above:Result Comment: Pro-BNP Reference Range:Rule Out: <300Grey Zone: Age <50 300-450 Age 50-75 300-900 Age >75 300-1800Usually represents mild to moderate HF but other cardiopulmonary causes cannot be ruled out.Rule In: Age <50 >450 Age 50-75 >900 Age >75 >1800Performed By: #### ERTPF, CONNER, LIP, LIVP, TEGCR ####Sarithay [address] [place], [place] [phone] with Diffon 31-68-9286Vrz. Basophil0.00 k/uLNormal0.0-0.2[facility] Hospital Of GardenaComment on above:Performed By: #### ERTPF, CONNER, LIP, LIVP, TEGCR ####[facility] [address]iywjhmwf[address] [place] [address] Abs.Imm.Granulocyte0.00 k/uLNormal0.00-0.30[facility] Medical CenterComment on above:Performed By: #### ERTPF, CONNER, LIP, LIVP, TEGCR ####[address] [address] Abs.Neutrophil (Seg)21.60 k/uLHigh1.8-7.7[facility] HospitalComment on above:Performed By: #### ERTPF, CONNER, LIP, LIVP, TEGCR ####[address] [address] Basophils/100 WBC Auto (Bld)0 %Normal0-2MSonoma Developmental CenterComment on above:Performed By: #### ERTPF, CONNER, LIP, LIVP, TEGCR ####[address] [address] Eosinophils Auto #/vol (Bld)0.00 10*3/uLNormal0.0-0.4[facility] HospitalComment on above: Performed By: #### ERTPF, CONNER, LIP, LIVP, TEGCR ####[address] [address] Eosinophils/100 WBC Auto (Bld)0 %Low1-4 [facility] HospitalComment on above:Performed By: #### ERTPF, CONNER, LIP, LIVP, TEGCR ####[address] [address] Immature granulocytes #/vol (Bld)0 %Otbnla5UfjuhWooster Community HospitalComment on above:Performed By: #### ERTPF, CONNER, LIP, LIVP, TEGCR ####[address] [address] Lymphocytes Auto #/vol (Bld)3.17 10*3/uLNormal1.0-4.8[facility] HospitalComment on above:Performed By: #### ERTPF, CONNER, LIP, LIVP, TEGCR ####[facility] [address] [place] [address] Lymphocytes/100 WBC Auto (Bld)11 %Kjs58-53VeuekWooster Community HospitalComment on above:Performed By: #### ERTPF, CONNER, LIP, LIVP, TEGCR ####[place] [address] Monocytes Auto #/vol (Bld)4.03 10*3/uLHigh0.1-0.8[facility] HospitalComment on above:Performed By: #### ERTPF, CONNER, LIP, LIVP, TEGCR ####[address] [address] Monocytes/100 WBC Auto (Bld)14 %High1-7[facility] HospitalComment on above:Performed By: #### ERTPF, CONNER, LIP, LIVP, TEGCR ####[address] [address] Morphology Interp Eduard (Bld)ANISOCYTOSIS PRESENTNormalWooster Community HospitalComment on above: Result Comment: INCREASED BANDS PRESENTTOXIC GRANULATION PRESENTPerformed By: #### ERTPF, CONNER, LIP, LIVP, TEGCR ####[facility] [id number] [place] [id number] Neutrophil (Seg)75 %[id number] Community HospitalComment on above:Performed By: #### ERTPF, CONNER, LIP, LIVP, TEGCR ####[address] [address] Erythrocyte distribution width Auto Ratio (RBC)16.2 %High11.8-14.4W[facility]oster Community HospitalComment on above:Result Comment: ADDED ONPerformed By: #### ERTPF, CONNER, LIP, LIVP, TEGCR ####[id number] [place] [address] Hematocrit Auto Volume Fraction (Bld)31.2 %Low40.7-50.3[facility] Memorial Hospital Of GardenaComment on above:Result Comment: ADDED ONPerformed By: #### ERTPF, CONNER, LIP, LIVP, TEGCR ####[address] [address] Hemoglobin mass conc (Bld)10.1 g/dLLow13.0-17.0[facility] HospitalComment on above:Result Comment: ADDED ONPerformed By: #### ERTPF, CONNER, LIP, LIVP, TEGCR ####[address] [address] MCH Auto Entitic mass (RBC)30.9 ncTzjktx27.2-33.5[facility] HospitalComment on above:Result Comment: ADDED ONPerformed By: #### ERTPF, CONNER, LIP, LIVP, TEGCR ####[address] [address] MCHC Auto mass conc (RBC)32.4 g/xXIzwdey36.4-34.8[facility] HospitalComment on above:Result Comment: ADDED ONPerformed By: #### ERTPF, CONNER, LIP, LIVP, TEGCR ####[address] [address] MCV Auto Entitic volume (RBC)95.4 sBNhuypv80.6-102.9[facility] HospitalComment on above:Result Comment: ADDED ONPerformed By: #### ERTPF, CONNER, LIP, LIVP, TEGCR ####[address] [address] NRBC Automated0.1 per 100 WBCHigh0.0[facility] HospitalComment on above:Result Comment: ADDED ONPerformed By: #### ERTPF, CONNER, LIP, LIVP, TEGCR ####Filomena [address] [address] Platelet mean volume Auto Entitic volume (Bld)11.4 fLNormal 8.1-13.5[facility] HospitalComment on above:Result Comment: ADDED ONPerformed By: #### ERTPF, CONNER, LIP, LIVP, TEGCR ####Saritha[address] [address] Platelets Auto #/vol (Bld)328 10*3/uL Nzjjvt089-934EfrsgWooster Community HospitalComment on above:Result Comment: ADDED ONPerformed By: #### ERTPF, CONNER, LIP, LIVP, TEGCR ####[address] [address] RBC Auto #/vol (Bld)3.27 10*6/uLLow4.21-5.77[facility] HospitalComment on above:Result Comment: ADDED ONPerformed By: #### ERTPF, CONNER, LIP, LIVP, TEGCR ####[address] [address] WBC Auto #/vol (Bld)28.8 10*3/uLHigh3.5-11.3MercKindred HospitalComment on above:Result Comment: ADDED ONPerformed By: #### ERTPF, CONNER, LIP, LIVP, TEGCR ####Saritha[address] [address] Auto Diff PerformedNOT REPORTEDNoalWooster Community HospitalComment on above:Performed By: #### ERTPF, CONNER, LIP, LIVP, TEGCR ####[address] [address] Platelets Auto #/vol (Bld)NOT REPORTEDSumma Health Barberton CampusComment on above:Performed By: #### ERTPF, CONNER, LIP, LIVP, TEGCR ####Sarithay [address] [place] [address] RBC morphology finding Nom (Bld)NOT REPORTEDSumma Health Barberton Campus Comment on above:Performed By: #### ERTPF, CONNER, LIP, LIVP, TEGCR ####[facility] [address]fb[address]pjzyv[address] [place] [address] WBC MorphologyNOT REPORTEDNoWhite HospitalComment on above:Performed By: #### ERTPF, CONNER, LIP, LIVP, TEGCR ####Filomena Ipdtudzfbctz[address] [place] [address] Calcium, Ionicon 93-76-7586Ddayoux mass conc1.22 mmol/L Normal1.13-1.33[facility] HospitalComment on above:Performed By: #### ERTPF, CONNER, LIP, LIVP, TEGCR ####Sarithay [address] [place] [address] Calcium mass conc1.04 mmol/LLow1.13-1.33[facility] HospitalComment on above:Performed By: #### ERTPF, CONNER, LIP, LIVP, TEGCR ####Sarithay [address] [place] [address] K (Potassium) on 63-67-0333Rtqnlqqme molar conc3.7 mmol/LNormal3.7-5.3Mgreene memorial hospitaly [facility] Of GardenaComment on above:Performed By: #### ERTPF, CONNER, LIP, LIVP, TEGCR ####[facility] Fgscvihcgspo[address] [place] [address] Potassium molar conc3.2 mmol/LLow3.7-5.3[facility] Of GardenaComment on above: Performed By: #### ERTPF, CONNER, LIP, LIVP, TEGCR ####[facility] [address]wom[address] [place] [address] Potassium molar conc3.3 mmol/LLow3.7-5.3 [facility] HospitalComment on above:Performed By: #### ERTPF, CONNER, LIP, LIVP, TEGCR ####[facility] [address] [place] [address] Magnesiumon 21-13-1887Adftgrbeh mass conc2.2 mg/dLNormal1.6-2.6 [facility] HospitalComment on above:Performed By: #### ERTPF, CONNER, LIP, LIVP, TEGCR ####[address] [address] Phosphorus, Inorg.on 48-82-7248Jjdhsiuiee, Inorg.3.8 mg/dLNormal 2.5-4.5[facility] HospitalComment on above:Performed By: #### ERTPF, CONNER, LIP, LIVP, TEGCR ####[address] [phone] Troughon 15-82-4492Sesqbuscrt Gdcvcc23.3 ug/mL Critically high10.0-20.0[facility] HospitalComment on above:Result Comment: Higher trough serum vancomycin concentrations of 15-20 ug/mL are recommended for complicated infections such as bacteremia, endocarditis, osteomyelitis, meningitis, and hospital acquired pneumonia.ADDED ONPerformed By: #### ERTPF, CONNER, LIP, LIVP, TEGCR ####[address] [phone] last dose,.BLOODNormalMerAvalon Municipal Hospital Comment on above:Performed By: #### ERTPF, CONNER, LIP, LIVP, TEGCR ####[facility] Z[address] [place] [address] Dose amount,.BLOODNormal [facility] HospitalComment on above:Performed By: #### ERTPF, CONNER, LIP, LIVP, TEGCR ####Filomena [address] [place] [address] Time last dose,.BLOODNormMagruder Memorial HospitalComment on above:Performed By: #### ERTPF, CONNER, LIP, LIVP, TEGCR ####Filomena A[address]eb[address]img[address] [place] [address] XR ABDOMEN (KUB) (SINGLE AP VIEW)on 33-74-1753HX ABDOMEN (KUB) (SINGLE AP VIEW)EXAMINATION:SINGLE SUPINE XRAY VIEW(S) OF THE ABDOMEN01/26/2018 5:47 amCOMPARISON:Radiograph January 21, 2018. Abdominal CT January 25, 2018.HISTORY:ORDERING SYSTEM PROVIDED HISTORY: comparisonTECHNOLOGIST PROVIDED HISTORY:comparisonFINDINGS:The enteric tube is coiled in the body of the stomach.Midline skin staplesare present. Gas is present within nondilated loops of small and largebowel. Mild stool burden and oral contrast within the colon to the level ofthe rectum. Surgical clips consistent with cholecystectomy are noted. Theosseous structures appear intact.IMPRESSION: Nonobstructive bowel gas pattern. Transit of oral contrast to the rectum.Enteric tube terminates in the body of the stomach.Interpreted by:NADEGE Burksigned by:Fidel Marley MD01/26/18Final [facility] HospitalXR CHEST PORTABLEon [id number] CHEST PORTABLE EXAMINATION:SINGLE XRAY VIEW OF THE CHEST01/26/2018 5:46 amCOMPARISON:01/25/2018HISTORY:ORDERING SYSTEM PROVIDED HISTORY: comparisonTECHNOLOGIST PROVIDED HISTORY:comparisonFINDINGS:Mild cardiomegaly. I ncreased pulmonary vascular congestion and interstitialedema. Increasing although small bilateral pleural effusions. Nopneumothorax. Basilar atelectasis. No focal consolidation.IMPRESSION: Increasingpulmonary edema and pleural effusions.Interpreted by:NADEGE Wootenigned by:Yadira Wooten01/26/18Final resultNormalMerAvalon Municipal HospitalBasic Metabolic Profon 21-25-9465Nugaxsvcho mass conc0.72 mg/dLNormal0.70-1.20[facility] HospitalComment on above:Result Comment: ICTERIC SPECIMENPerformed By: #### ERTPF, CONNER, LIP, LIVP, TEGCR ####[facility] [address]bug[address] [place] [address] GFR, Amer>60Normal>60[facility] HospitalComment on above:Performed By: #### ERTPF, CONNER, LIP, LIVP, TEGCR ####[facility] Drvnxzzkidyt[address] [place], [place] [phone],non Amer>60 Normal>60[facility] HospitalComment on above:Performed By: #### ERTPF, CONNER, LIP, LIVP, TEGCR ####[facility] Woelitlgzbjo[address] [place] [address] (cont.)NormalWooster Community HospitalComment on above: Result Comment: Average GFR for 50-59 years old: 93 mL/min/1.73sq mChronic Kidney Disease: <60 mL/min/1.73sq mKidney failure: <15 mL/min/1.73sq meGFR calculated using average adult body mass. Additional eGFR calculator available at:http://www.WePow.com/multiple_crcl_2012.htmPerformed By: #### ERTPF, CONNER, LIP, LIVP, TEGCR ####Egeneray [address]ht[address]qd[address] [place] 43[address] Anion gap 3 molar conc14 mmol/LNormal9-17[facility] HospitalComment on above:Performed By: #### ERTPF, CONNER, LIP, LIVP, TEGCR ####[facility] Pfsndcemnxjz[address] [place] [address] Calcium mass conc8.6 mg/dLNormal8.6-10.4[facility] HospitalComment on above: Performed By: #### ERTPF, CONNER, LIP, LIVP, TEGCR ####[address] [address] Chloride molar conc97 mmol/FDwo25-653 [facility] HospitalComment on above:Performed By: #### ERTPF, CONNER, LIP, LIVP, TEGCR ####[address] [address] ZK5 molar conc24 mmol/YMpddbz00-62XmafyWooster Community Hospital Comment on above:Performed By: #### ERTPF, CONNER, LIP, LIVP, TEGCR ####[address] [address] Glucose mass bcha952 mg/cQWqye92-35PkwoeSonoma Developmental CenterComment on above:Performed By: #### ERTPF, CONNER, LIP, LIVP, TEGCR ####[address] [address] Potassium molar conc3.3 mmol/LLow3.7-5.3MSonoma Developmental CenterComment on above:Performed By: #### ERTPF, CONNER, LIP, LIVP, TEGCR ####[address] [address] Sodium molar mbjz565 mmol/UOdvynq329-337ErflcWooster Community HospitalComment on above: Performed By: #### ERTPF, CONNER, LIP, LIVP, TEGCR ####[address] [address] Urea nitrogen mass conc14 mg/dLNormal6-20 [facility] HospitalComment on above:Performed By: #### ERTPF, CONNER, LIP, LIVP, TEGCR ####[address] [address] BUN/CRE RatioNOT REPORTEDNormal9-20[facility] HospitalComment on above:Performed By: #### ERTPF, CONNER, LIP, LIVP, TEGCR ####[address] [phone]:NOT REPORTED NormalWooster Community HospitalComment on above:Performed By: #### ERTPF, CONNER, LIP, LIVP, TEGCR ####[place] [address]6740 CBC with Diffon 29-06-7921Iek. Basophil0.00 k/uLNormal0.0-0.2MSonoma Developmental CenterComment on above:Performed By: #### ERTPF, CONNER, LIP, LIVP, TEGCR ####[place] [address] Abs.Imm.Granulocyte1.00 k/uLHigh0.00-0.30MerAvalon Municipal HospitalComment on above:Performed By: #### ERTPF, CONNER, LIP, LIVP, TEGCR ####[address] [address] Abs.Neutrophil (Seg) 15.00 k/uLHigh1.8-7.7[facility] HospitalComment on above:Performed By: #### ERTPF, CONNER, LIP, LIVP, TEGCR ####[place] [address] Basophils/100 WBC Auto (Bld)0 %Normal0-2MSonoma Developmental CenterComment on above:Performed By: #### ERTPF, CONNER, LIP, LIVP, TEGCR ####[address] [address] Eosinophils Auto #/vol (Bld)0.20 10*3/uLNormal0.0-0.4[facility] HospitalComment on above:Performed By: #### ERTPF, CONNER, LIP, LIVP, TEGCR ####[facility] [address] [place] [address] Eosinophils/100 WBC Auto (Bld)1 %Normal1-4[facility] HospitalComment on above:Performed By: #### ERTPF, CONNER, LIP, LIVP, TEGCR ####[place] [address] Immature granulocytes #/vol (Bld)5 %Kytp4AobniWooster Community HospitalComment on above:Performed By: #### ERTPF, CONNER, LIP, LIVP, TEGCR ####[address] [address] Lymphocytes Auto #/vol (Bld)1.20 10*3/uLNormal1.0-4.8[facility] HospitalComment on above:Performed By: #### ERTPF, CONNER, LIP, LIVP, TEGCR ####[place] [address] Lymphocytes/100 WBC Auto (Bld)6 %Vra85-74UbfmbWooster Community HospitalComment on above:Performed By: #### ERTPF, CONNER, LIP, LIVP, TEGCR ####[address] [address] Monocytes Auto #/vol (Bld)2.60 10*3/uLHigh 0.1-0.8[facility] HospitalComment on above:Performed By: #### ERTPF, CONNER, LIP, LIVP, TEGCR ####[address] [address] Monocytes/100 WBC Auto (Bld)13 %High1-7[facility] HospitalComment on above:Performed By: #### ERTPF, CONNER, LIP, LIVP, TEGCR ####[facility] Tb[address]cr[address]kef[address] [place] [address] Morphology Interp Eduard (Bld)INCREASED BANDS PRESENTNormalWooster Community Hospital Comment on above:Result Comment: ANISOCYTOSIS PRESENTTOXIC GRANULATION PRESENT Performed By: #### ERTPF, CONNER, LIP, LIVP, TEGCR ####[facility] [address]nrh[address]ulb[address] [place] [address] Neutrophil (Seg)75 %Lhar19-27PgsdgWooster Community HospitalComment on above:Performed By: #### ERTPF, CONNER, LIP, LIVP, TEGCR ####[place] [address] NRBC Automated0.1 per 100 WBCHigh0.0[facility] HospitalComment on above: Performed By: #### ERTPF, CONNER, LIP, LIVP, TEGCR ####[place] [address] Platelet mean volume Auto Entitic volume (Bld)11.5 fLNormal8.1-13.5[facility] HospitalComment on above: Performed By: #### ERTPF, CONNER, LIP, LIVP, TEGCR ####[address] [address] Platelets Auto #/vol (Bld)216 10*3/uL Pgrzak511-786NanxsWooster Community HospitalComment on above:Performed By: #### ERTPF, CONNER, LIP, LIVP, TEGCR ####[address] [address] WBC Auto #/vol (Bld)20.0 10*3/uLHigh3.5-11.3MSonoma Developmental CenterComment on above:Performed By: #### ERTPF, CONNER, LIP, LIVP, TEGCR ####[address] [place] [address] Erythrocyte distribution width Auto Ratio (RBC)15.7 %High11.8-14.4[facility] HospitalComment on above:Performed By: #### ERTPF, CONNER, LIP, LIVP, TEGCR ####[address] [address] Hematocrit Auto Volume Fraction (Bld)33.8 %Low40.7-50.3MercKindred HospitalComment on above:Performed By: #### ERTPF, CONNER,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 #### OHP, IOCAL ####[facility] Evmyuupcwtul3490 [place] [address] Time last dose,NOT REPORTEDNoWhite HospitalComment on above:Performed By: #### OHP, IOCAL ####[facility] Eifnkywafvjj[address] [place] [address] Vitamin D 25 OHon 01-38-2432Qhbldzm D 25 OH10.5 ng/mLLow30.0-100.0[facility] Comment on above:Result Comment: Reference Range:Vitamin D status Range Deficiency <20 ng/mL Mild Deficiency 20-30 ng/mL Sufficiency 30-100 ng/mL Toxicity >100 ng/mLPerformed By: #### OHP, IOCAL ####[facility] Tmleihyzmauo075[address] [place] [address] XR CHEST PORTABLEon 05-32-2293LZ CHEST PORTABLEEXAMINATION:SINGLE XRAY VIEW OF THE CHEST01/23/2018 8:39 amCOMPARISON:Chest x-ray [...] on a background of emphysematous and/or chronic interst itialchange.Interpreted by:NADEGE Wrightigned by:Cassie Guzmán MD01/23/18Final resultNoWhite HospitalArterial Blood Gases on 78-23-8648Yokge TestINFORMATION NOT PROVIDEDSumma Health Barberton CampusComment on above:Performed By: #### OHP, IOCAL ####[facility] Skbxcnvhzrcr7487 [place] [address] Body Temp.37.0NormalWooster Community HospitalComment on above:Performed By: #### OHP, IOCAL ####[facility] Ruznzhubwtro89[address] [place] [address] Carboxy Hgb2.7 %Normal 0-5[facility] Community HospitalComment on above:Result Comment: Reference Range:Non-Smokers 0-2%Average Smoker 2-4%Heavy Smoker <10%Performed By: #### OHP, IOCAL ####[facility] Mvwmnrlgxmoy3887 [place] [address] KWL730%NormalWooster Community HospitalComment on above:Performed By: #### OHP, IOCAL ####[facility] Yucwdxguucpv7427 [place] [address] HCO3 molar conc (Bld)28.2 mmol/ROpcn19-50JzzciWooster Community HospitalComment on above:Performed By: #### OHP, IOCAL ####[facility] Geddafkubjjb18[address] [place] [address] Oxygen ppres (BldA)81.3 mm[Hg]Lchogs31-60YgxszAvalon Municipal HospitalComment on above:Performed By: #### OHP, IOCAL ####[facility] Ilcndyylcrmo77[address] [place] [address] Oxygen saturation in Blood95.9 %Vhrkdt11-152AtbbpWooster Community HospitalComment on above:Performed By: #### OHP, IOCAL ####[facility] Qukyaqftdeka668[address] [place] [address] rYU222.5 szCrQqoncx39-63JqsccWooster Community Hospital Comment on above:Performed By: #### OHP, IOCAL ####[facility] Wljufgafvwhc5804 [place] [address] pH (Bld)7.447 [pH]Normal7.350-7.450W[facility] Community HospitalComment on above:Performed By: #### OHP, IOCAL ####[facility] Akdjpnslesxr4160 [place] [address] Positive Base Excess4.2 mmol/LHigh0.0-2.0[facility] HospitalComment on above:Performed By: #### OHP, IOCAL ####[facility] Xzneioqrcape4219 [place] [address] MethemoglobinNOT REPORTEDNormal0.0-1.5MerAvalon Municipal HospitalComment on above:Performed By: #### OHP, IOCAL ####[facility] Qxtabmnfxzyx4423 [place] [address] ModeNOT REPORTEDNormal [facility] HospitalComment on above:Performed By: #### OHP, IOCAL ####[facility] Iteqoamgpxbv9138 [place] [address] Negative Base ExcessNOT REPORTEDNormal0.0-2.0[facility] HospitalComment on above: Performed By: #### OHP, IOCAL ####[facility] Kzfdorypnukr3441 [place] [address] Notification TimeNOT REPORTEDNormalWooster Community HospitalComment on above:Performed By: #### OHP, IOCAL ####[facility] Suapkdncslib2976 [place] [phone]:NOT REPORTEDNormalWooster Community HospitalComment on above:Performed By: #### OHP, IOCAL ####[facility] Ralcroswiviy6308 [place] [address] O2 Device/Flow/%NOT REPORTEDSaint Luke'S North Hospital–Barry RoadalWooster Community HospitalComment on above:Performed By: #### OHP, IOCAL ####[facility] Xejldhvcbshe9164 [place] [address] OxyhemoglobinNOT OWXFZRXTDlpema07.0-98.0[facility] HospitalComment on above:Performed By: #### OHP, IOCAL ####[facility] Qvclfwkckctl1462 [place] [phone] Adj'd for TempNOT JUFNLXQHVcrovf17-81WduxzAvalon Municipal HospitalComment on above:Performed By: #### OHP, IOCAL ####[facility] Lfalyjtalowp1473 [place] [address] PEEP/CPAPNOT REPORTEDNormalWooster Community Hospital Comment on above:Performed By: #### OHP, IOCAL ####[facility] Bqgooebgjroe9322 [place] [address] pH Adjst'd for Temp.NOT REPORTEDNormal 7.350-7.450[facility] HospitalComment on above:Performed By: #### OHP, IOCAL ####[facility] Bcdwxuuwzynu8462 [place] [address] aE0 Adjst'd for TempNOT HBYCOKEVIswbgs45-64NteqeAvalon Municipal HospitalComment on above:Performed By: #### OHP, IOCAL ####[facility] Htwuiikvfzjk0583 [place] [address] PSVNOT REPORTEDNormalWooster Community HospitalComment on above:Performed By: #### OHP, IOCAL ####[facility] Qznkuvleyygx9105 [place] [phone]. PositionNOT REPORTEDNormalWooster Community HospitalComment on above:Performed By: #### OHP, IOCAL ####[facility] Bulteancioms[address]62 [place] [address] Set RateNOT REPORTED NormalWooster Community HospitalComment on above:Performed By: #### OHP, IOCAL ####[facility] Pdptqekxsqlt4293 [place] [address] Site DrawnNOT REPORTEDNormalWooster Community HospitalComment on above: Performed By: #### OHP, IOCAL ####[facility] Mhdsihxxqdlp5490 [place] [address] Text for RespiratoryNOT REPORTEDNormalWooster Community HospitalComment on above:Performed By: #### OHP, IOCAL ####[facility] Ipytevvvyflb7291 [place] [address] Total HbNOT REPORTED Xtdyxc48.0-16.0MerAvalon Municipal HospitalComment on above:Performed By: #### OHP, IOCAL ####[facility] Olesypjkxdst5102 [place] [address] Total RateNOT REPORTEDSumma Health Barberton Campus Comment on above:Performed By: #### OHP, IOCAL ####[facility] Pwrznpzssjne39[address] [place] [phone] REPORTEDNormalWooster Community HospitalComment on above:Performed By: #### CALLY IOCAL ####[facility] Xufylpinyjfd6707 [place] [address] Basic Metab w/rfx MGon 01-22-2018(cont.) NormalWooster Community HospitalComment on above:Result Comment: Average GFR for 50-59 years old: 93 mL/min/1.73sq mChronic Kidney Disease: <60 mL /min/1.73sq mKidney failure: <15 mL/min/1.73sq meGFR calculated using average adult body mass. Additional eGFR calculator available at:http://www.Blushr/multiple_crcl_2012.htmPerformed By: #### CALLY IOCAL ####[facility] Wihknspgebbn4524 [place] [address] Anion gap 3 molar conc9 mmol/LNormal9-17[facility] HospitalComment on above: Performed By: #### CALLY IOCAL ####Fil[facility]a Hpsmkfaibqar8968 [place] [address] Calcium mass conc8.0 mg/dLLow8.6-10.4[facility] HospitalComment on above:Performed By: #### CALLY IOCAL ####[facility] Inpvwyctqcso1270 [place] [address] Chloride molar conc99 mmol/UWfonhb35-612 [facility] HospitalComment on above:Performed By: #### CALLY, IOCAL ####[facility] Zoxhlmxfytkk4619 [place] [address] MK7 molar conc 28 mmol/NClokkr18-13JteyjWooster Community HospitalComment on above:Performed By: #### CALLY, IOCAL ####Sarithay Baalpxzaixoj5868 [place] [address] Creatinine mass conc0.56 mg/dLLow0.70-1.20[facility] HospitalComment on above:Performed By: #### OHP, IOCAL ####[facility] Dnyvwdfjhzwq2429 [place] [address] GFR, Amer>60 Normal>60[facility] HospitalComment on above:Performed By: #### OHP, IOCAL ####[facility] Gvwreigwpask6388 [place] [address] GFR,non Amer>60Normal>60[facility] HospitalComment on above:Performed By: #### OHP, IOCAL ####[facility] Ilrfmjcspgqn7874 [place] [address] Glucose mass dfmr501 mg/vKMzfa60-50NvuklSonoma Developmental CenterComment on above:Performed By: #### OHP, IOCAL ####[facility] Wnxhztlmapfq1362 [place] [address] Potassium molar conc3.8 mmol/LNormal3.7-5.3MSonoma Developmental CenterComment on above:Performed By: #### OHP, IOCAL ####[facility] Znptqowyhoxy2229 [place] [address] Sodium molar fysa512 mmol/ONtdavb898-175QfucqWooster Community HospitalComment on above:Performed By: #### OHP, IOCAL ####[facility] Lsbltekdzaid2742 [place] [address] Urea nitrogen mass conc9 mg/dLNormal6-20[facility] HospitalComment on above:Performed By: #### OHP, IOCAL ####[facility] Nrmjsunapoqa5939 [place] [address] BUN/CRE RatioNOT REPORTEDNoal9-20[facility] HospitalComment on above:Performed By: #### OHP, IOCAL ####[facility] Vmroozibumpg7672 [place] [address] Staging:NOT REPORTEDNormalWooster Community HospitalComment on above:Performed By: #### CALLY, IOCAL ####Sarithay Anbjbflxmyyv5769 [place] [address] Basic Metabolic Profon 01-22-2018(cont.)NormalWooster Community HospitalComment on above:Result Comment: Average GFR for 50-59 years old: 93 mL/min/1.73sq mChronic Kidney Disease: <60 mL/min/1.73sq mKidney failure: <15 mL/min/1.73sq meGFR calculated using average adult body mass. Additional eGFR calculator available at:http://www.Blushr/multiple_crcl_2012.htmPerformed By: #### CALLY, IOCAL ####Filomena Hkjksoikcefr3204 [place] [address] Anion gap 3 molar conc11 mmol/LNormal9-17[facility] HospitalComment on above: Performed By: #### CALLY, IOCAL ####Sarithay Bfnrjwzpxybu8253 [place] [address] Calcium mass conc8.1 mg/dLLow8.6-10.4[facility] HospitalComment on above:Performed By: #### OHAmrik, IOCAL ####Sarithay Gejzeylxjvvs5579 [place] [address] Chloride molar conc99 mmol/YEhzspv95-617 [facility] HospitalComment on above:Performed By: #### OHP, IOCAL ####[facility] Lauoytglqjtp2014 [place] [address] QN8 molar conc 27 mmol/BHcutaw72-28OgjkgWooster Community HospitalComment on above:Performed By: #### OHP, IOCAL ####Sarithay Xjwrtimjzfke1294 [place] [address] Creatinine mass conc0.58 mg/dLLow0.70-1.20[facility] HospitalComment on above:Performed By: #### OHAmrik, IOCAL ####[facility] Ileehgfciccf9232 [place] [address] GFR, Amer>60 Normal>60[facility] HospitalComment on above:Performed By: #### OHAmrik, IOCAL ####[facility] Jopyhvovukjc1674 [place] [address] GFR,non Amer>60Normal>60MerAvalon Municipal HospitalComment on above:Performed By: #### OHAmrik, IOCAL ####[facility] Vkbpdedxffsz7391 [place] [address] Glucose mass conc87 mg/cTJreqsj14-80YsvzjSonoma Developmental CenterComment on above:Performed By: #### OHP, IOCAL ####[facility] Vnkmpendsmbf3990 [place] [phone] molar conc3.6 mmol/LLow3.7-5.3MSonoma Developmental CenterComment on above:Performed By: #### OHP, IOCAL ####[facility] Rustgmhxjewy8967 [place] [address] Sodium molar tdbs693 mmol/JThsnoa280-156XllufWooster Community HospitalComment on above:Performed By: #### OHP, IOCAL ####[facility] [address] [place] [address] Urea nitrogen mass conc6 mg/dLNormal6-20[facility] HospitalComment on above:Performed By: #### OHP, IOCAL ####[facility] [address] [place] [address] Brain Natri. Peptideon 95-56-9808Uivwxrdvtra peptide B mass conc (Bld)NormalWooster Community HospitalComment on above:Result Comment: Pro-BNP Reference Range:Rule Out: <300Grey Zone: Age <50 300-450 Age 50-75 300- 900 Age >75 300-1800Usually represents mild to moderate HF but other cardiopulmonary causes cannot be ruled out.Rule In: Age <50 >450 Age 50-75 >900 Age >75 >1800Performed By: #### CALLY IOCAL ####[facility] [address] [place] [address] Natriuretic peptide B mass conc (Bld)70726 pg/mL High<300MerAvalon Municipal HospitalComment on above:Result Comment: Pro-BNP results cannot be compared to BNP results.Performed By: #### CALLY, IOCAL ####[facility] [address] [place] [address] CBCon 40-49-9971Kzuklchdnyb distribution width Auto Ratio (RBC)15.8 %High11.8-14.4 [facility] HospitalComment on above:Performed By: #### OHAmrik, IOCAL ####[facility] [address] [place] [address] Hematocrit Auto Volume Fraction (Bld)32.6 %Low40.7-50.3[facility] Comment on above:Performed By: #### OHAmrik, IOCAL ####[facility] [address] [place] [address] Hemoglobin mass conc (Bld)10.7 g/dLLow13.0-17.0 [facility] HospitalComment on above:Performed By: #### OHP, IOCAL ####[facility] Lrjmhiwtrjgo[address] [place] [address] MCH Auto Entitic mass (RBC)31.4 pdAssqav36.2-33.5[facility] HospitalComment on above:Performed By: #### OHP, IOCAL ####[facility] [address] [place] [address] MCHC Auto mass conc (RBC)32.8 g/dLNormal 28.4-34.8[facility] HospitalComment on above:Performed By: #### CALLY, IOCAL ####[facility] [address] [place] [address] MCV Auto Entitic volume (RBC)95.6 lLOfgvug84.6-102.9[facility] HospitalComment on above:Performed By: #### CALLY, IOCAL ####[facility] RojasSamyjwfdwqew[address] [place] [address] NRBC Automated0.0 per 100 WBCNormal0.0 [facility] HospitalComment on above:Performed By: #### CALLY IOCAL ####[facility] [address] [place] [address] Platelets Auto #/vol (Bld)See Reflexed IPF [id number] Community Hospital Comment on above:Performed By: #### CALLY IOCAL ####[facility] RojasJwrofwzuqxho[address] [place] [address] RBC Auto #/vol (Bld)3.41 10*6/uLLow4.21-5.77 [facility] HospitalComment on above:Performed By: #### CALLY, IOCAL ####[facility] [address] [place] [address] WBC Auto #/vol (Bld)28.0 10*3/uLHigh3.5-11.3MSonoma Developmental CenterComment on above: Performed By: #### CALLY, IOCAL ####[facility] [address] [place] [address] CBC with Diffon 61-65-0925Pky. Basophil0.00 k/uLNormal0.0-0.2 [facility] HospitalComment on above:Performed By: #### CALLY, IOCAL ####[facility] [address] [place] [address] Abs.Imm.Granulocyte0.29 k/uLNormal0.00-0.30[facility] Comment on above:Performed By: #### CALLY IOCAL ####Filomena [address] [address] Abs.Neutrophil (Seg)25.64 k/uLHigh1.8-7.7[facility] HospitalComment on above:Performed By: #### CALLY, IOCAL ####[facility] [address] [place] [address] Basophils/100 WBC Auto (Bld)0 %Normal0-2MSonoma Developmental CenterComment on above: Performed By: #### CALLY IOCAL ####[address] [address] Eosinophils Auto #/vol (Bld)0.00 10*3/uLNormal0.0-0.4[facility] HospitalComment on above:Performed By: #### CALLY IOCAL ####Saritha[address] [address] Eosinophils/100 WBC Auto (Bld)0 %Low1-4[facility] HospitalComment on above:Performed By: #### CALLY, IOCAL ####[address] [address] Immature granulocytes #/vol (Bld)1 %Dzaj1CfeyrWooster Community HospitalComment on above:Performed By: #### CALLY, IOCAL ####[address] [address] Lymphocytes Auto #/vol (Bld)2.00 10*3/uLNormal1.0-4.8[facility] HospitalComment on above: Performed By: #### CALLY, IOCAL ####[address] [place] [address] Lymphocytes/100 WBC Auto (Bld)7 %Bws21-92BkwsmWooster Community HospitalComment on above:Performed By: #### CALLY, IOCAL ####[facility] [address] [place] [address] Monocytes Auto #/vol (Bld)0.57 10*3/uLNormal0.1-0.8MerAvalon Municipal HospitalComment on above: Performed By: #### CALLY, IOCAL ####[facility] [address] [place] [address] Monocytes/100 WBC Auto (Bld)2 %Normal1-7[facility] HospitalComment on above:Performed By: #### CALLY, IOCAL ####[facility] [address] [place] [address] Morphology Interp Eduard (Bld)INCREASED BANDS PRESENTNormalWooster Community HospitalComment on above:Result Comment: ANISOCYTOSIS PRESENTPerformed By: #### CALLY IOCAL ####[facility] [address] [place] [address] Neutrophil (Seg)90 %Yelg81-71AyqddWooster Community HospitalComment on above:Performed By: #### CALLY, IOCAL ####Filomean [address]xx[address] [place] [address] NRBC Automated0.0 per 100 WBCNormal0.0[facility] HospitalComment on above:Performed By: #### CALLY, IOCAL ####Sarithay [address] [place] [address] WBC Auto #/vol (Bld)28.5 10*3/uLHigh3.5-11.3[facility] Hospital Of GardenaComment on above:Performed By: #### CALLY, IOCAL ####[facility] [address] [place] [address] Erythrocyte distribution width Auto Ratio (RBC)15.6 %High 11.8-14.4[facility] HospitalComment on above:Performed By: #### CALLY, IOCAL ####[facility] [address] [place] [address] Hematocrit Auto Volume Fraction (Bld)31.4 %Low40.7-50.3MercKindred HospitalComment on above:Performed By: #### CALLY, IOCAL ####[facility]a [address]ofn[address] [place] [address] Hemoglobin mass conc (Bld)10.3 g/dLLow 13.0-17.0[facility] HospitalComment on above:Performed By: #### CALLY, IOCAL ####[facility] [address] [address] MCH Auto Entitic mass (RBC)30.9 nmDdckia19.2-33.5[facility] Comment on above:Performed By: #### CALLY IOCAL ####[facility] [address] [address] MCHC Auto mass conc (RBC)32.8 g/dLNormal 28.4-34.8[facility] HospitalComment on above:Performed By: #### OHAmrik, IOCAL ####[facility] Emchriwdedun[address] [place] [address] MCV Auto Entitic volume (RBC)94.3 wSKwiomj39.6-102.9[facility] HospitalComment on above:Performed By: #### OHAmrik, IOCAL ####[facility] [address]tygkxhjdhe[address] [place] [address] Platelets Auto #/vol (Bld)See Reflexed IPF [id number] Municipal HospitalComment on above: Performed By: #### OHP, IOCAL ####[facility] [address] [place] [address] RBC Auto #/vol (Bld)3.33 10*6/uLLow4.21-5.77[facility] HospitalComment on above:Performed By: #### OHP, IOCAL ####[facility] [address] [place] [address] Auto Diff PerformedNOT REPORTEDNormMagruder Memorial HospitalComment on above:Performed By: #### OHP, IOCAL ####[facility] [address] [place] [address] Platelet mean volume Auto Entitic volume (Bld)NOT REPORTED Normal8.1-13.5[facility] HospitalComment on above:Performed By: #### OHP, IOCAL ####[facility] [address] [place] [address] Platelets Auto #/vol (Bld)NOT REPORTEDNoWhite HospitalComment on above:Performed By: #### OHP, IOCAL ####[facility] [address] [place] [address] RBC morphology finding Nom (Bld)NOT REPORTEDNoWhite HospitalComment on above: Performed By: #### OHP, IOCAL ####[facility] [address] [place] [address] WBC MorphologyNOT REPORTEDNoWhite HospitalComment on above:Performed By: #### OHP, IOCAL ####[facility] [address] [place] [address] MRI LUMBAR SPINE WO CONTRASTon 01-22-2018 MRI LUMBAR SPINE WO CONTRASTEXAMINATION:MRI OF THE LUMBAR SPINE WITHOUT CONTRAST, 01/20/2018 4:12 amTECHNIQUE:Multiplanar multisequence MRI of the lumbar spine was performed without theadministration of intravenous contrast.SILVANO RISON:NoneHISTORY:ORDERING SYSTEM PROVIDED HISTORY: L1 burst fractureTECHNOLOGIST PROVIDED HISTORY:These include T11 and T12 with possible to assess ligamentsFINDINGS:BONES/ALIGNMENT: L1 vertebral body compression deformity with 20% anteriorheight loss. Marrow T2 hyperintensity involves the L1 vertebral body. J68skuaokm process acute fracture. Remaining vertebrae maintain normal heightand marrow signal. There is straightening of the lumbar lordosis.SPINAL CORD: The conus terminates normally.SOFT TISSUES: No paraspinal mass identified.L1-L2: There is no significant disc herniation, spinal canal stenosis orneural foraminal narrowing.L2-L3: There is no significant disc herniation, spinal canalstenosis orneural foraminal narrowing.L3-L4: There is no significant disc herniation, spinal canal stenosis orneural foraminal narrowing.L4-L5: Circumferential disc bulge with central annular fissure, ligamentumflavum thickening and facet arthrosis with mild central spinal canalstenosis. The neuralforamina are patent.L5-S1: Small annular bulge with severe bilateral facet arthrosis, mildcentral spinal canal stenosis and mwfb-sw-eaqonlue bilateral foraminalstenosis.IMPRESSION: L1 acute compression fracture, 20% anterior height loss. No bonyretropulsion or acute neural impingement.T12 acute spinous process fracture.Interpreted by:NADEGE Romeroigned by:Ramakrishna Santana MD01/22/18 Recipients:Rubina Arreaga DO - In Anant (authorizing provider)Final resultNormalMercy Memorial Hospital Of Gardena Magnesiumon 03-18-4864Bmfddjpsl mass conc2.0 mg/dLNormal1.6-2.6Mer[facility] Hospital Of GardenaComment on above:Performed By: #### OHP, IOCAL ####[facility] [address] [place] [address] PLT, Immature Fract.on 66-45-4566Wlxdpkpp, Fluoresc.128 k/xFPxi347-862DhoniWooster Community Hospital Comment on above:Result Comment: ORDERED BY LABPerformed By: #### OHP, IOCAL ####[facility] [address] [place] [address] PLT, Immature Fract.5.8 %Normal1.1-10.3Mgreene memorial hospitaly Memorial Hospital Of GardenaComment on above:Result Comment: ORDERED BY LABPerformed By: #### OHP, IOCAL ####Sarithay [address]wschj[address] [place], [place] [phone], Fluoresc.132 k/gLBks189-933 [facility] HospitalComment on above:Performed By: #### OHP, IOCAL ####[facility] [address] [place], [place] [phone], Immature Fract.6.2 %Normal1.1-10.3Mgreene memorial hospitaly Memorial Hospital Of GardenaComment on above: Performed By: #### OHP, IOCAL ####Filomena [address]hrfzb[address] [place], [place] [phone], Inorg.on 03-83-9045Qqtrtsivow, Inorg.2.2 mg/dLLow 2.5-4.5[facility] HospitalComment on above:Performed By: #### OHP, IOCAL ####[facility] Fmnwmusxeyou[address] [place] [address] Phosphorus, Inorg.2.5 mg/dLNormal2.5-4.5[facility] HospitalComment on above:Result Comment: ADDED ONPerformed By: #### OHP, IOCAL ####[facility] [address]sx[address]riomwgm[address] [place], [place] [phone] CHEST PORTABLEon 85-55-3118EE CHEST PORTABLEEXAMINATION:SINGLE XRAY VIEW OF THE CHEST01/22/2018 5:56 amCOMPARISON:Chest x-ray [...] recommended.Interpreted by:NADEGE Wrightigned by:Cassie Guzmán MD01/22/18inal result [facility] CampusBasic Metabolic Profon 01-21-2018(cont.) NormalWooster Community HospitalComment on above:Result Comment: Average GFR for 50-59 years old: 93 mL/min/1.73sq mChronic Kidney Disease: <60 mL /min/1.73sq mKidney failure: <15 mL/min/1.73sq meGFR calculated using average adult body mass. Additional eGFR calculator available at:http://www.WePow.Fanergies/multiple_crcl_2012.htmPerformed By: #### BMP, BNP ####[facility] [address] [place] [address] Performed By: #### ERTPF, CONNER, LIP, LIVP, TEGCR ####Egener[facility] [address] [place] [address] Anion gap 3 molar conc9 mmol/LNormal9-17[facility] HospitalComment on above:Performed By: #### BMP, BNP ####[facility] [address] [place] [address] Calcium mass conc8.1 mg/dLLow8.6-10.4[facility] Community HospitalComment on above:Performed By: #### BMP, BNP ####[facility] [place] [address] Performed By: #### ERTPF, CONNER, LIP, LIVP, TEGCR ####[address] [address] Chloride molar conc99 mmol/IMohlrl91-872 [facility] HospitalComment on above:Performed By: #### BMP, BNP ####[address] [address] Performed By: #### ERTPF, CONNER, LIP, LIVP, TEGCR ####[address] [address] CO2 molar conc27 mmol/VHgjsaf93-11GapugWooster Community HospitalComment on above:Performed By: #### BMP, BNP ####[address] [address] Creatinine mass conc0.54 mg/dLLow 0.70-1.20[facility] Community HospitalComment on above:Performed By: #### BMP, BNP ####[address] [address] GFR, Amer>60Normal>60[facility] Community HospitalComment on above: Performed By: #### BMP, BNP ####[address] [address] Performed By: #### ERTPF, CONNER, LIP, LIVP, TEGCR ####[place] [place] [address] GFR,non Amer>60 Normal>60[facility] Community HospitalComment on above:Performed By: #### BMP, BNP ####[address] [address] Performed By: #### ERTPF, CONNER, LIP, LIVP, TEGCR ####[facility] [address] [place] [address] Glucose mass vhhq813 mg/oLInzc29-28XpiyzSonoma Developmental CenterComment on above:Performed By: #### BMP, BNP ####[facility] [address] [place] [address] Potassium molar conc4.4 mmol/LNormal3.7-5.3MSonoma Developmental CenterComment on above:Performed By: #### BMP, BNP ####[address] [address] Sodium molar csbj288 mmol/OGllkzd228-369HnxfzWooster Community HospitalComment on above:Performed By: #### BMP, BNP ####[address] [address] Urea nitrogen mass conc7 mg/dLNormal6-20[facility] HospitalComment on above:Performed By: #### BMP, BNP ####[address] [address] Performed By: #### ERTPF, CONNER, LIP, LIVP, TEGCR ####[address] [place] [address] Anion gap 3 molar conc10 mmol/LNormal9-17 [facility] HospitalComment on above:Performed By: #### ERTPF, CONNER, LIP, LIVP, TEGCR ####[address] [place] [address] EW4 molar conc28 mmol/QQuuxdc21-49XbqyaWooster Community Hospital Comment on above:Performed By: #### ERTPF, CONNER, LIP, LIVP, TEGCR ####[address] [place] [address] Creatinine mass conc0.56 mg/dLLow0.70-1.20[facility] HospitalComment on above:Performed By: #### ERTPF, CONNER, LIP, LIVP, TEGCR ####[address] [address] Glucose mass conc97 mg/uTSzodzw88-13McllfSonoma Developmental CenterComment on above:Performed By: #### ERTPF, CONNER, LIP, LIVP, TEGCR ####[address] [address] Potassium molar conc4.7 mmol/LNormal3.7-5.3MSonoma Developmental CenterComment on above:Performed By: #### ERTPF, CONNER, LIP, LIVP, TEGCR ####[address] [address] Sodium molar sjws399 mmol/CAdthqr720-400 [facility] HospitalComment on above:Performed By: #### ERTPF, CONNER, LIP, LIVP, TEGCR ####[address] [address] BUN/CRE RatioNOT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 ####[address] [address] NRBC Automated0.0 per 100 WBCNormal0.0 [facility] HospitalComment on above:Performed By: #### ERTPF, CONNER, LIP, LIVP, TEGCR ####[address] [address] Platelet mean volume Auto Entitic volume (Bld)9.4 fLNormal8.1-13.5 [facility] HospitalComment on above:Performed By: #### ERTPF, CONNER, LIP, LIVP, TEGCR ####Filomena [address] [place] [address] Platelets Auto #/vol (Bld)193 10*3/fCDmyhfq304-335TypvyWooster Community HospitalComment on above:Performed By: #### ERTPF, CONNER, LIP, LIVP, TEGCR ####[address] [address] RBC Auto #/vol (Bld)4.38 10*6/uLNormal4.21-5.77[facility] Comment on above:Performed By: #### ERTPF, CONNER, LIP, LIVP, TEGCR ####[address] [address] WBC Auto #/vol (Bld)3.6 10*3/uLNormal3.5-11.3MSonoma Developmental CenterComment on above:Performed By: #### ERTPF, CONNER, LIP, LIVP, TEGCR ####[address] [address] Body Temp.37.0Sum[facility] Health Barberton CampusComment on above:Performed By: #### ERTPF, CONNER, LIP, LIVP, TEGCR ####[address] [phone] Hgb5.7 %High0-5 [facility] HospitalComment on above:Result Comment: Reference Range:Non-Smokers 0-2%Average Smoker 2-4%Heavy Smoker <10%Performed By: #### ERTPF, CONNER, LIP, LIVP, TEGCR ####[address] [phone] NOT PROVIDEDSumma Health Barberton CampusComment on above:Performed By: #### ERTPF, CONNER, LIP, LIVP, TEGCR ####[facility] Hospitalapp2you Mxzplprigjbh2228 [place] [address] HCO3 molar conc (Bld) 18.9 mmol/HQwp05-67MfabiWooster Community HospitalComment on above:Performed By: #### ERTPF, CONNER, LIP, LIVP, TEGCR ####[facility] Qxdrnlzoxdgu4562 [place] [address] Negative Base Xguppo84.2 mmol/LHigh0.0-2.0[facility] HospitalComment on above:Performed By: #### ERTPF, CONNER, LIP, LIVP, TEGCR ####[facility] Hfykydysbyfk9207 [place] [address] Oxygen ppres (BldA)40.2 mm[Hg]Rsedyr07-64NzcvsWooster Community HospitalComment on above:Performed By: #### ERTPF, CONNER, LIP, LIVP, TEGCR ####[facility] Gtlcfvsudlip8276 [place] [address] Oxygen saturation in Blood58.1 %Low60.0-85.0[facility] HospitalComment on above: Performed By: #### ERTPF, CONNER, LIP, LIVP, TEGCR ####[facility] Amcjpdfiaygx8760 [place] [phone] Community HospitalComment on above:Performed By: #### ERTPF, CONNER, LIP, LIVP, TEGCR ####[facility] [address] [place] [address] pH (Bld)7.157 [pH]Critically low7.320-7.420[facility] HospitalComment on above: Performed By: #### ERTPF, CONNER, LIP, LIVP, TEGCR ####[facility] [address] [place] [address] Blood BankBILL FOR SERVICES PERFORMED NormalWooster Community HospitalComment on above:Performed By: #### ERTPF, CONNER, LIP, LIVP, TEGCR ####[facility] Djgelqsdmhvn[address] [place] [address] 4360 (cont.)NOT REPORTEDNormalMercy Memorial Hospital Of GardenaComment on above:Performed By: #### ERTPF, CONNER, LIP, LIVP, TEGCR ####[facility] Q[address] [place] [address] 25938 Allen TestNOT REPORTED NormalMercy Memorial Hospital Of GardenaComment on above:Performed By: #### ERTPF, CONNER, LIP, LIVP, TEGCR ####[facility] Gmjgzgwqef[address] [place] [address] 4360 GFR, AmerNOT REPORTEDNormal>60MerAvalon Municipal HospitalComment on above:Performed By: #### ERTPF, CONNER, LIP, LIVP, TEGCR ####[facility] L[address]iyjxajtyu[address] [place] [address] 61910 GFR,non AmerNOT REPORTEDNormal>60[facility] Of GardenaComment on above:Performed By: #### ERTPF, CONNER, LIP, LIVP, TEGCR ####[facility] El[address]mjm[address] [place] [address] [phone] REPORTEDNormal0.0-1.5MerAvalon Municipal HospitalComment on above:Performed By: #### ERTPF, CONNER, LIP, LIVP, TEGCR ####[facility] [address] [place] [address] ModeNOT REPORTEDNormalMerAvalon Municipal HospitalComment on above:Performed By: #### ERTPF, CONNER, LIP, LIVP, TEGCR ####[facility] [address] [place] [address] [phone] TimeNOT REPORTEDNormalFairfield Medical Centercy Memorial Hospital Of GardenaComment on above:Performed By: #### ERTPF, CONNER, LIP, LIVP, TEGCR ####[facility] [address] [place] [address] Notification: NOT REPORTEDNormalWooster Community HospitalComment on above:Performed By: #### ERTPF, CONNER, LIP, LIVP, TEGCR ####[facility] [address] [place] [address] O2 Device/Flow/%NOT REPORTEDNormalWooster Community HospitalComment on above:Performed By: #### ERTPF, CONNER, LIP, LIVP, TEGCR ####[facility] [address] [place] [address] 34206 Oxyhemoglobin NOT UTLRUPVLIeuaor60.0-98.0Wooster Community HospitalComment on above: Performed By: #### ERTPF, CONNER, LIP, LIVP, TEGCR ####[facility] F[address]boitabjd[address] [place] [address] 60821 Pda8 Adj'd for Temp.NOT REPORTEDNormal 39-55W[facility]oster Community HospitalComment on above:Performed By: #### ERTPF, CONNER, LIP, LIVP, TEGCR ####[facility] [address] [place] 43[address] PEEP/CPAPNOT REPORTEDNormalWooster Community HospitalComment on above:Performed By: #### ERTPF, CONNER, LIP, LIVP, TEGCR ####[facility] [address] [place] [address] pH Adjst'd for Temp.NOT REPORTEDNormal7.320-7.420MerAvalon Municipal HospitalComment on above: Performed By: #### ERTPF, CONNER, LIP, LIVP, TEGCR ####[facility] [address] [place] [address] 94436 kB9 Adj'd for Temp.NOT REPORTEDNormal 30-50Mer[facility] Hospital Of GardenaComment on above:Performed By: #### ERTPF, CONNER, LIP, LIVP, TEGCR ####[facility] [address] [place] 43[address] Positive Base ExcessNOT REPORTEDNormal0.0-2.0Mer[facility] Hospital Of GardenaComment on above:Performed By: #### ERTPF, CONNER, LIP, LIVP, TEGCR ####Egeneray [address] [place] [address] 98369 PSVNOT REPORTEDNormalMercy Memorial Hospital Of GardenaComment on above:Performed By: #### ERTPF, CONNER, LIP, LIVP, TEGCR ####Egeneray [address] [place] [address] 06442 Pt. PositionNOT REPORTEDNormalMercy Memorial Hospital Of GardenaComment on above:Performed By: #### ERTPF, CONNER, LIP, LIVP, TEGCR ####Tipjoy [address] [place] [address] 44032 Set RateNOT REPORTED NormalWooster Community HospitalComment on above:Performed By: #### ERTPF, CONNER, LIP, LIVP, TEGCR ####[address] [place] [address] 4360 [phone] DrawnNOT REPORTEDNormalWooster Community Hospital Comment on above:Performed By: #### ERTPF, CONNER, LIP, LIVP, TEGCR ####Tipjoy [address]og[address] [place] [address] [phone]:NOT REPORTED NormalWooster Community HospitalComment on above:Performed By: #### ERTPF, CONNER, LIP, LIVP, TEGCR ####Egeneray [address]xs[address] [place] [address] 4360 [phone] for RespiratoryNOT REPORTEDNormalWooster Community HospitalComment on above:Performed By: #### ERTPF, CONNER, LIP, LIVP, TEGCR ####Filomena [address] [place], [place] [phone] HbNOT REPORTED Mccfjb49.0-16.0Wooster Community HospitalComment on above:Performed By: #### ERTPF, CONNER, LIP, LIVP, TEGCR ####[facility]ie [address]so[address] [place], [place] [phone] RateNOT REPORTEDNormalWooster Community HospitalComment on above:Performed By: #### ERTPF, CONNER, LIP, LIVP, TEGCR ####Filomena [address] [place], [place] [phone] REPORTEDNoal Wooster Community HospitalComment on above:Performed By: #### ERTPF, CONNER, LIP, LIVP, TEGCR ####[facility] [address]xdvi[address] [place] 4360 Type + Screenon [id number] + ScreenSample Expiration 01/22/2018 Arm Band Number [id number] ABO/Rh(D) A POSITIVE Antibody Screen NEGATIVE Unit Number [id number] Blood Component Type Leukocyte Reduced Red Cell Unit Division 00 Status of Unit TRANSFUSED Transfusion Status OK TO TRANSFUSE Crossmatch Result COMPATIBLE Unit Number [id number] Blood Component Type Leukocyte Reduced Red Cell Unit Division 00 Status of Unit REL FROM ALLOC Transfusion Status OK TO TRANSFUSE Crossmatch Result COMPATIBLE Unit Number [id number] Blood Component Type Leukocyte Reduced Red Cell Unit Division 00 Status of Unit REL FROM ALLOC TransfusionStatus OK TO TRANSFUSE Crossmatch Result COMPATIBLE Unit Number [id number] Blood Component Type Leukocyte Reduced Red Cell Unit Division 00 Status of Unit REL FROM ALLOC Transfusion Status OK TO TRANSFUSE Crossmatch Result COMPATIBLE Unit Number [id number] Blood Component Type Leukocyte Reduced Red Cell Unit Division 00 Status of Unit TRANSFUSED Transfusion Status OK TO TRANSFUSE CrossmatchResult COMPATIBLE Unit Number [id number] Blood Component Type Leukocyte Reduced Red Cell Unit Div ision 00 Status of Unit REL FROM ALLOC Transfusion Status OK TO TRANSFUSE Crossmatch Result COMPATIBLENormalMercy Memorial Hospital Of GardenaComment on above:Performed By: #### ERTPF, CONNER, LIP, LIVP, TEGCR ####Filomena [address] [place], [place] [id number] Vital Signs Date TimeVital SignValuePerforming YkdyivtduGuafjohd50-72-7862 13:28-0400Body uktgnb459.8 cmAnthomichele Rusher DPM Work Phone: [facility] HealthRpznryfyij81-30-7403 13:28-0400Body mass index (BMI) [Ratio]19.08 kg/h1Qrqyeod Rusher DPM Work Phone: [facility] HealthTwtcatljar60-99-6397 13:28-0400Body imsmpv94.33 kgAnthony Rusher DPM Work Phone: [facility] HealthUysllsklkb26-34-1220 14:12-0400Body mass index (BMI) [Ratio]19.08 kg/e8Sbepri Caden DO Work Phone: [facility] HealthZoagmsfbju94-30-9421 14:12-0400Body tuvrgx37.33 kgLeanne Caden DO Work Phone: [facility] HealthQucpdxwqoc85-21-1660 14:12-0400Diastolic blood mm[Hg]Kaela Caden DO Work Phone: [facility] HealthGvwhjfjjjw45-00-6172 14:12-0400Heart rate57 /min Kaela Caden DO Work Phone: [place] [address]Ylzvxqperm92-97-6494 14:12-5384BnE9% (BldA) [Mass fraction]91 %Kaela Caden DO Work Phone: [facility] HealthcareComment on above:3L ON49-03-2669 14:12-0400Systolic blood iilwupmk573 mm[Hg]Kaela Caden DO Work Phone: [facility] HealthGpyqthqlvb72-85-0855 13:04-0400Body mass index (BMI) [Ratio]19.14 kg/m2NA Saludr MD Work Phone: [facility]08-19-2025 13:04-0400Body temperature 98.91 [degF]DENIA Carpenter MD Work Phone: [facility]08-19-2025 13:04-0400Body hzgybl41.5 kgDENIA Carpenter MD Work Phone: [facility]08-19-2025 13:04-0400Diastolic blood mm[Hg]DENIA Carpenter MD Work Phone: [facility]08-19-2025 13:04-0400Heart rate83 /min DENIA Carpenter MD Work Phone: [facility]08-19-2025 13:04-0400Respiratory rate 20 /FranciscaDENIA Carpenter MD Work Phone: [facility]08-19-2025 13:04-7872JoS8% (BldA) [Mass fraction]99 %DENIA Carpenter MD Work Phone: [facility] EastComment on above:O2 at 3L/WH64-04-5825 13:04-0400Systolic blood lhtuclnu978 mm[Hg]DENIA Carpenter MD Work Phone: [facility]06-10-2025 10:39-0400Body ntaodk676.8 cmGildardo Lacy MD Work Phone: [facility] HealthRczygzwdbc91-57-1696 10:39-0400Body mass index (BMI) [Ratio]18.37 kg/m2Gildardo Lacy MD Work Phone: [facility] HealthGgvzirlohd76-02-0784 10:39-0400Body temperature 97.81 [degF]Gildardo Lacy MD Work Phone: [facility] HealthMubtirmioy32-37-6566 10:39-0400Body ribzah92.06 kgGildardo Lacy MD Work Phone: [facility] HealthFlcufoclxi87-90-6833 10:39-0400Diastolic blood ucmxatfr88 mm[Hg]Gildardo Lacy MD Work Phone: [facility] HealthCtiejjpqef18-31-6301 10:39-0400Heart rate95 /min Gildardo Lacy MD Work Phone: [facility] HealthLktuihuvgf57-00-1572 10:39-0400Respiratory rate18 /minGildardo Lacy MD Work Phone: [facility] HealthVhxdgjhyix11-91-6337 10:39-5547WkM2% (BldA) [Mass fraction]98 %Gildardo Lacy MD Work Phone: [facility] HealthYfulzsdgsn56-49-3579 10:39-0400Systolic blood zziccdsa103 mm[Hg]Gildardo Lacy MD Work Phone: [facility] HealthCmpnngqayg36-98-5512 13:17-0400Body kazdwn102.8 cmCarmen Neely MD Work Phone: 1(457)312-[address] [place], [place] 3983605-12-2025 13:17-0400 Body mass index (BMI) [Ratio]19.08 kg/r5EzwvbqCarmen Neely MD Work Phone: 1([phone])[address]05-12-2025 13:17-0400 Body dzjcza51.33 kgCarmen Neely MD Work Phone: 1(082)[address]05-12-2025 13:17-0400 Diastolic blood caetxwpe35 mm[Hg]Carmen Neely MD Work Phone: 1(956)[address]05-12-2025 13:17-0400 Heart rate86 /minCarmen Neely MD Work Phone: 1(447)[address]05-12-2025 13:17-0400 Systolic blood ervklgcy614 mm[Hg]Carmen Neely MD Work Phone: [phone])[address]05-08-2025 11:37-0400 Body .8 cmGildardo Lacy MD Work Phone: [facility] HealthLpqvdegnda74-67-6109 11:37-0400Body mass index (BMI) [Ratio]20.52 kg/m2Gildardo Lacy MD Work Phone: [facility] HealthVqhauctjts99-57-5838 11:37-0400Body temperature 98.2 [degF]Gildardo Lacy MD Work Phone: [facility] HealthXomlgrxymv43-81-6421 11:37-0400Body otndxz31.86 kgGildardo Lacy MD Work Phone: [facility] HealthAhnywsretl50-79-7294 11:37-0400Diastolic blood gkblhney18 mm[Hg]Gildardo Lacy MD Work Phone: [facility] HealthOvgbdxrmel25-60-7391 11:37-0400Heart aijv901 /min Gildardo Lacy MD Work Phone: [facility] HealthQdfbagnccc73-22-4727 11:37-0400Respiratory rate20 /minGildardo Lacy MD Work Phone: [facility] HealthIiueobjxuy69-35-1740 11:37-6082KvY0% (BldA) [Mass fraction]97 %Gildardo Lacy MD Work Phone: [facility] HealthCteeyprpjt57-21-9377 11:37-0400Systolic blood mm[Hg]Gildardo Layc MD Work Phone: [facility] HealthMflcqihzit92-49-9216 10:04-0400Body mass index (BMI) [Ratio]17.91 kg/m2Rashida Zarate PRELOAD SUPERVISOR Work Phone: [facility] HealthLoyhfrfnei53-13-5096 10:04-0400Body temperature 98.4 [degF]Rashida Zarate PRELOAD SUPERVISOR Work Phone: [facility] HealthTacnrkikqf74-77-3906 10:04-0400Body advpbg63.61 kgRashida Zarate PRELOAD SUPERVISOR Work Phone: [facility] HealthMpwtqlllhp32-78-8866 10:04-0400Diastolic blood jnidttcl16 mm[Hg]Rashida Zarate PRELOAD SUPERVISOR Work Phone: [facility] HealthYfmoxeguzp02-89-4052 10:04-0400Heart rate97 /min Rashida Caldwelltapan PRELOAD SUPERVISOR Work Phone: [facility] HealthAcckyebbpz39-09-5267 10:04-0400Respiratory rate20 /minRashida Zarate PRELOAD SUPERVISOR Work Phone: [facility] HealthQekwktnwri31-30-3779 10:04-4919TyT2% (BldA) [Mass fraction]97 %Rashida Zarate PRELOAD SUPERVISOR Work Phone: [facility] HealthPcskcmwqen38-56-4855 10:04-0400Systolic blood czeixgfa901 mm[Hg]Rashida Zarate PRELOAD SUPERVISOR Work Phone: [facility] HealthMkgqfrfthi18-73-9213 13:01-0500Body mass index (BMI) [Ratio]18.79 kg/m2NA Ron VO Work Phone: [facility]02-18-2025 13:01-0500Body temperature 97.9 [degF]DENIA Carpenter MD Work Phone: 1(539)732-[address] [place], [place] 4576802-18-2025 13:01-0500Body kqpweb48.4 kgDENIA Carpenter MD Work Phone: 1(308)627-[address] [place], [place] 4576802-18-2025 13:01-0500Diastolic blood cnussqfm16 mm[Hg]DENIA Carpenter MD Work Phone: [facility]02-18-2025 13:01-0500Heart rate95 /min DENIA Carpenter MD Work Phone: [facility]02-18-2025 13:01-0500Respiratory rate 18 /FranciscaDENIA Carpenter MD Work Phone: [facility]02-18-2025 13:01-0666FyW0% (BldA) [Mass fraction]96 %DENIA Carpenter MD Work Phone: [facility]02-18-2025 13:01-0500Systolic blood xozaoyty787 mm[Hg]DENIA Carpenter MD Work Phone: [facility]02-07-2025 14:47-0500Body hsdqul680.8 cmHebert Miguel MD Work Phone: [facility]02-07-2025 14:47-0500Body mass index (BMI) [Ratio]20.09 kg/v5LdmncHebert Miguel MD Work Phone: [facility]02-07-2025 14:47-0500Body .5 kgHebert Miguel MD Work Phone: [facility]01-29-2025 13:32-0500Body .8 cmGildardo Lacy MD Work Phone: [phone] [place], [place] [address]Cvvtskdykd55-21-3939 13:32-0500Body mass index (BMI) [Ratio]18.37 kg/m2Gildardo Lacy MD Work Phone: [facility] HealthMacivritkt12-57-7401 13:32-0500Body temperature 97.81 [degF]Gildardo Lacy MD Work Phone: [phone] [place], [place] [address]Rabfrpajrc69-48-9343 13:32-0500Body .06 kgGildardo Lacy MD Work Phone: [facility] HealthEmvlniefax53-08-9890 13:32-0500Diastolic blood vfvooqhh57 mm[Hg]Gildardo Lacy MD Work Phone: [facility] HealthKufntjrfap31-55-7426 13:32-0500Heart xhxr289 /min Gildardo Lacy MD Work Phone: [facility] HealthQqtzieyalu58-55-4825 13:32-0500Respiratory rate24 /minGildardo Lacy MD Work Phone: [facility] HealthNutfdqwjur14-49-8755 13:32-9443IqB8% (BldA) [Mass fraction]90 %Gildrado Lacy MD Work Phone: [facility] HealthWupncmxpnj48-97-7958 13:32-0500Systolic blood hluqxpbq472 mm[Hg]Gildardo Lacy MD Work Phone: [facility] HealthAvpighndra83-23-5691 13:24-0500Body saelsy231.8 cmGildardo Lacy MD Work Phone: [facility] HealthCofqglyvbt43-06-9820 13:24-0500Body mass index (BMI) [Ratio]19.8 kg/m2Gildardo Lacy MD Work Phone: [facility] HealthIthaiqkryu85-07-4659 13:24-0500Body temperature 98.4 [degF]Gildardo Lacy MD Work Phone: [facility] HealthSxgqykxztz34-63-1206 13:24-0500Body hbaclj32.6 kg Gildardo Lacy MD Work Phone: [facility] HealthBwpuymahyf67-28-6337 13:24-0500Diastolic blood mm[Hg]Gildardo Lacy MD Work Phone: [facility] HealthNawloaylmr61-40-1911 13:24-0500Heart kora379 /min Gildardo Lacy MD Work Phone: [facility] HealthQfvmpduorg05-61-9945 13:24-0500Respiratory rate20 /minGildardo Lacy MD Work Phone: [facility] HealthAuuzqaidam97-12-0830 13:24-8540ZlU8% (BldA) [Mass fraction]92 %Gildardo Lacy MD Work Phone: [facility] HealthYpjfjxizwd19-82-6948 13:24-0500Systolic blood tdgvibap377 mm[Hg]Gildardo Lacy MD Work Phone: [facility] HealthYdhwofupkm40-33-5986 09:56-0400Body .8 cmGildardo Lacy MD Work Phone: [facility] HealthKxtzkehwvk80-40-2376 09:56-0400Body mass index (BMI) [Ratio]18.65 kg/m2Gildardo Lacy MD Work Phone: [facility] HealthVozbadoubs39-72-1627 09:56-0400Body temperature 97.81 [degF]Gildardo Lacy MD Work Phone: [facility] HealthLuevedonnx42-36-0337 09:56-0400Body pefvkf00.97 kgGildardo Lacy MD Work Phone: [facility] HealthXzfweqatkk96-81-1764 09:56-0400Diastolic blood hljjzzun92 mm[Hg]Gildardo Lacy MD Work Phone: [facility] HealthFwswyoawnn48-46-2370 09:56-0400Heart rate92 /min Gildardo Lacy MD Work Phone: [facility] HealthWjfycybvhu21-58-8607 09:56-0400Respiratory rate18 /minGildardo Lacy MD Work Phone: [facility] HealthFfdytgkaak51-76-6226 09:56-1204JlL4% (BldA) [Mass fraction]97 %Gildardo Lacy MD Work Phone: [facility] HealthCqelvxmeaa80-72-2884 09:56-0400Systolic blood kgjfvfci824 mm[Hg]Gildardo Lacy MD Work Phone: [facility] HealthFqzldqjmuq61-51-3205 09:35-0400Body .8 cmMattchevy Hood PA Work Phone: [facility] HealthOityvpxxwj51-66-8904 09:35-0400Body mass index (BMI) [Ratio]20.09 kg/j1LtlchtuCassie Hood PA Work Phone: [facility] HealthIuaqotqcmt50-65-5339 09:35-0400Body qkopuy67.5 kg Cassie PHAN Work Phone: [facility] HealthBfxrcnoemx62-60-1635 14:55-0400Body cukkyj731.7 cmEsdras Cash MD Work Phone: [facility]08-20-2024 14:55-0400Body mass index (BMI) [Ratio]19.32 kg/b4SdlniEsdras Cash MD Work Phone: [facility]08-20-2024 14:55-0400Body temperature 98.2 [degF]Esdras Cash MD Work Phone: [facility]08-20-2024 14:55-0400Body .69 kgEsdras Cash MD Work Phone: [facility]08-20-2024 14:55-0400Diastolic blood sxwgkuvp90 mm[Hg]Esdras Cash MD Work Phone: [facility]08-20-2024 14:55-0400Heart lzhw812 /minEsdras Cash MD Work Phone: [facility]08-20-2024 14:55-0400Respiratory rate 18 /minEsdras Cash MD Work Phone: [facility]08-20-2024 14:55-8599NfB2% (BldA) [Mass fraction]95 %Esdras Cash MD Work Phone: [facility]08-20-2024 14:55-0400Systolic blood ofodynsl310 mm[Hg]Esdras Cash MD Work Phone: [facility]08-20-2024 14:35-0400Body mass index (BMI) [Ratio]19.38 kg/m2DENIA Carpenter MD Work Phone: [facility]08-20-2024 14:35-0400Body temperature 98.2 [degF]DENIA Carpenter MD Work Phone: [facility]08-20-2024 14:35-0400Body .9 kgDENIA Carpenter MD Work Phone: [facility]08-20-2024 14:35-0400Diastolic blood sfofsnvy83 mm[Hg]DENIA Carpenter MD Work Phone: [facility]08-20-2024 14:35-0400Heart vxgd378 /FranciscaDENIA Carpenter MD Work Phone: [place] [address]-20-2024 14:35-0400Respiratory rate 18 /FranciscaDENIA Carpenter MD Work Phone: [facility]08-20-2024 14:35-2552ObY5% (BldA) [Mass fraction]95 %DENIA Carpenter MD Work Phone: [facility]08-20-2024 14:35-0400Systolic blood rhhcyyri942 mm[Hg]DENIA Carpenter MD Work Phone: [facility]07-16-2024 10:29-0400Body wygorn645.8 cmCarmen Neely MD Work Phone: [facility]07-16-2024 10:29-0400 Body mass index (BMI) [Ratio]18.65 kg/r6KgukgdCarmen Neely MD Work Phone: [facility]07-16-2024 10:29-0400 Body wrpexm55.97 kgCarmen Neely MD Work Phone: 1([phone] [place], [place] 3983607-16-2024 10:29-0400 Diastolic blood uznwnlfv43 mm[Hg]Carmen Neely MD Work Phone: [facility]07-16-2024 10:29-0400 Heart rate88 /minCarmen Neely MD Work Phone: [facility]07-16-2024 10:29-0400 Systolic blood bohulzke051 mm[Hg]Carmen Neely MD Work Phone: [facility]04-16-2024 14:20-0400 Body rauqax728.7 cmEsdras Cash MD Work Phone: [facility]04-16-2024 14:20-0400Body temperature 97.5 [degF]Esdras Cash MD Work Phone: [facility]04-16-2024 14:20-0400Body bxpaxk86.7 kgEsdras Cash MD Work Phone: [facility]04-16-2024 14:20-0400Diastolic blood xerfrsbo18 mm[Hg]Esdras Cash MD Work Phone: [facility]04-16-2024 14:20-0400Heart rrlu523 /Jarrell Cash MD Work Phone: [place] [address]-16-2024 14:20-0400Respiratory rate 18 /minEsdras Cash MD Work Phone: [facility]04-16-2024 14:20-9601GsG6% (BldA) [Mass fraction]94 %Esdras Cash MD Work Phone: [facility]04-16-2024 14:20-0400Systolic blood zbamnqha974 mm[Hg]Esdras Cash MD Work Phone: [facility]04-16-2024 14:00-0400Body mass index (BMI) [Ratio]21.2 kg/m2NA Ron VO Work Phone: [facility]04-16-2024 14:00-0400Body temperature 98.49 [degF]DENIA Carpenter MD Work Phone: [facility]04-16-2024 14:00-0400Diastolic blood afkgiyzc03 mm[Hg]DENIA Carpenter MD Work Phone: [facility]04-16-2024 14:00-0400Heart pnrg332 /Francisca Ron VO Work Phone: [facility]04-16-2024 14:00-4233LmM5% (BldA) [Mass fraction]93 %DENIA Carpenter MD Work Phone: [facility]04-16-2024 14:00-0400Systolic blood jkkzaumj499 mm[Hg]DENIA Carpenter MD Work Phone: [facility]01-03-2024 11:18-0500Body uayuvc733.8 cmCarmen Neely MD Work Phone: [facility]01-03-2024 11:18-0500 Body mass index (BMI) [Ratio]21.67 kg/n0ObbnbgCarmen Neely MD Work Phone: [facility]01-03-2024 11:18-0500 Body zfxdge43.49 kgCarmen Neely MD Work Phone: [facility]01-03-2024 11:18-0500 Diastolic blood zlhbtkxa30 mm[Hg]Carmen Neely MD Work Phone: [facility]01-03-2024 11:18-0500 Heart rate72 /minCarmen Neely MD Work Phone: [facility]01-03-2024 11:18-0500 Systolic blood mm[Hg]Carmen Neely MD Work Phone: [facility]02-07-2023 10:18-0500 Body bvqkeu818.8 cmMarc A NPC IIIerer Work Phone: mp073-7073RK-Txwtv [facility] [address] DO Work Phone: 1(401) 923-586402-07-2023 10:18-0500Body mass index (BMI) [Ratio] 25.83 kg/m2Mar A NPC IIIerer Work Phone: mp288-5009CH-Ksuqs [facility] [address] DO Work Phone: 1(919) 680-995602-07-2023 10:18-0500Body surface area Derived from formula2 m2Mar A NPC IIIerer Work Phone: mp119-3468ED-Srzox [facility] [address] DO Work Phone: 1(897) 241-238602-07-2023 10:18-0500Body jstacu16.65 kgMarc A Naderer Work Phone: mp556-1279GA-Tccze [facility] [address] DO Work Phone: 1(275) 522-913102-07-2023 10:18-0500Diastolic blood pallaakz31 mm[Hg] Gildardo A Naderer Work Phone: mp264-3984XA-Bdkew [facility] [address] DO Work Phone: 1(283) 440-371502-07-2023 10:18-0500Heart rate75 /minMarc A Naderer Work Phone: mp493-3537CS-Fckkw [facility] [address] DO Work Phone: 1(164) 861-764402-07-2023 10:18-0500Systolic blood puigvgkp588 mm[Hg] Gildardo Lacy Work Phone: 1(893) 536-8050262-4031UJ-Csnhk [facility] [address] DO Work Phone: 1(210) 120-433201-17-2023 10:08-0500Body ynhnsf820.7 cmEsdras Cash MD Work Phone: [facility]01-17-2023 10:08-0500Body temperature 97.7 [degF]Esdras Cash MD Work Phone: [facility]01-17-2023 10:08-0500Body .65 kgEsdras Cash MD Work Phone: [facility]01-17-2023 10:08-0500Diastolic blood alcbtphi48 mm[Hg]Esdras Cash MD Work Phone: [facility]01-17-2023 10:08-0500Heart rate82 /min Esdras Cash MD Work Phone: [facility]01-17-2023 10:08-0500Respiratory rate 16 /minEsdras Cash MD Work Phone: [facility]01-17-2023 10:08-1807SmF6% (BldA) [Mass fraction]96 %Esdras Cash MD Work Phone: [facility]01-17-2023 10:08-0500Systolic blood bnjcejrr075 mm[Hg]Esdras Cash MD Work Phone: [facility]12-15-2022 11:11-0500Body temperature 97.5 [degF]DENIA Carpenter MD Work Phone: [facility]12-15-2022 11:11-0500Body eoohnf10.93 kgDENIA Carpenter MD Work Phone: [facility]12-15-2022 11:11-0500Diastolic blood ueijmgav53 mm[Hg]DENIA Carpenter MD Work Phone: [address] [place], [place] [address]112-15-2022 11:11-0500Heart rate74 /min DENIA Carpenter MD Work Phone: [facility]12-15-2022 11:11-0500Respiratory rate 18 /FranciscaDENIA Carpenter MD Work Phone: [facility]12-15-2022 11:11-8795EyI5% (BldA) [Mass fraction]97 %DENIA Carpenter MD Work Phone: [facility]12-15-2022 11:11-0500Systolic blood xdcujdoo261 mm[Hg]DENIA Carpenter MD Work Phone: [facility]10-25-2022 13:52-0400Body temperature 97.5 [degF]DENIA Carpenter MD Work Phone: [facility]10-25-2022 13:52-0400Body wivbnk34.11 kgDENIA Carpenter MD Work Phone: [facility]10-25-2022 13:52-0400Diastolic blood mm[Hg]DENIA Carpenter MD Work Phone: [facility]10-25-2022 13:52-0400Heart rate92 /min DENIA Carpenter MD Work Phone: [facility]10-25-2022 13:52-0400Respiratory rate 16 /FranciscaDENIA Carpenter MD Work Phone: [facility]10-25-2022 13:52-3803MgO5% (BldA) [Mass fraction]95 %DENIA Carpenter MD Work Phone: [facility]10-25-2022 13:52-0400Systolic blood eqjbnzjz706 mm[Hg]DENIA Carpenter MD Work Phone: [facility]10-18-2022 10:26-0400Body .7 cmEsdras Cahs MD Work Phone: [facility]10-18-2022 10:26-0400Body temperature 97.59 [degF]Esdras Cash MD Work Phone: [facility]10-18-2022 10:26-0400Body wivcaf97.83 kgEsdras Cash MD Work Phone: [facility]10-18-2022 10:26-0400Diastolic blood etonpxfx23 mm[Hg]Esdras Cash MD Work Phone: [facility]10-18-2022 10:26-0400Heart rate72 /min Esdras Cash MD Work Phone: [facility]10-18-2022 10:260400Respiratory rate 18 /minEsdras Cash MD Work Phone: [facility]10-18-2022 10:26-6199FkO1% (BldA) [Mass fraction]96 %Esdras Cash MD Work Phone: [facility]10-18-2022 10:260400Systolic blood mm[Hg]Esdras Cash MD Work Phone: [facility]09-12-2022 12:00-676770 1Mbindu Lacy Work Phone: mp-[facility] [address] [place] Work Phone: Comment on above:[id number] 10:45-082496 1 Gildardo Masseyr Work Phone: mp-[facility] [place] [address] DO Work Phone: Comment on above:[id number] 13:12-0400Body wmrxmrdrimn44.59 [degF]DENIA Carpenter MD Work Phone: [facility]08-25-2022 13:12-0400Body dfiuko56.66 kgDENIA Carpenter MD Work Phone: [facility]08-25-2022 13:12-0400Diastolic blood uvctukxv10 mm[Hg]DENIA Carpenter MD Work Phone: [facility]08-25-2022 13:12-0400Heart rate81 /min DENIA Carpenter MD Work Phone: [facility]08-25-2022 13:12-0400Respiratory rate 16 /FranciscaDENIA Carpenter MD Work Phone: [facility]08-25-2022 13:12-4364JiI9% (BldA) [Mass fraction]99 %DENIA Carpenter MD Work Phone: [facility]08-25-2022 13:12-0400Systolic blood zokosuhe377 mm[Hg]DENIA Carpenter MD Work Phone: [facility]07-27-2022 10:50-0400Diastolic blood mm[Hg]Gildardo Butler NPC IIIerer Work Phone: mp489-4502IX-Lgauj [facility] [address] DO Work Phone: 1(163) 304-490507-27-2022 10:50-0400Systolic blood qncpimjc24 mm[Hg] Gildardo Butler Naderer Work Phone: mp297-1432GK-Esszu [facility] [place] [address] DO Work Phone: 1(960) 424-940707-27-2022 10:47-0400Body svcotc269.8 [facility] A [facility] Work Phone: mp633-3221DD-Ggqyi [facility] 250 DO Work Phone: 1(107) 892-690207-27-2022 10:47-0400Body mass index (BMI) [Ratio] 23.53 kg/m2[facility] A Naderer Work Phone: mp443-1403SI-Sqite [facility] 250 DO Work Phone: 1(919) 106-488507-27-2022 10:47-0400Body surface area Derived from formula1.92 m2Mar A Naderer Work Phone: mp076-5264OP-Jdjvd [facility] [address] DO Work Phone: 1(578) 459-385807-27-2022 10:47-0400Body pyadkz47.39 kgMar A Naderer Work Phone: mp998-6853QC-Uomcg [facility] [address] DO Work Phone: 1(487) 920-225607-27-2022 10:47-0400Diastolic blood viclqsov78 mm[Hg] Gildardo Carrie Naderer Work Phone: mp000-7271KU-Sviib [facility] [address] DO Work Phone: 1(132) 418-162107-27-2022 10:47-0400Heart rate92 /minMarc A Naderer Work Phone: mp897-5443CS-PiqegUnited [facility] 250 DO Work Phone: 1(930) 683-259107-27-2022 10:47-0400Systolic blood tbozkpqg242 mm[Hg] Gildardo Carrie Naderer Work Phone: mp761-3119QH-MngspUnited Hospital District Hospital 250 DO Work Phone: 1(138) 973-711307-27-2022 10:47-64676 1Marc Carrie Nadzakr Work Phone: mp802-6315TA-[place] [address] [place] Work Phone: Comment on above:PHQ-9 [id number] 10:53-0400Body halfveanhof79.9 [degF]DENIA Carpenter MD Work Phone: [facility]07-21-2022 10:53-0400Body cpnmvo24.93 kgDENIA Carpenter MD Work Phone: [facility]07-21-2022 10:53-0400Diastolic blood kidnarqc65 mm[Hg]DENIA Carpenter MD Work Phone: [facility]07-21-2022 10:53-0400Heart oyyx584 /FranciscaDENIA Carpenter MD Work Phone: [facility]07-21-2022 10:53-0400Respiratory rate 18 /FranciscaDENIA Carpenter MD Work Phone: [facility]07-21-2022 10:53-9172IhR3% (BldA) [Mass fraction]97 %DENIA Carpenter MD Work Phone: [facility]07-21-2022 10:53-0400Systolic blood ctynjkwa337 mm[Hg]DENIA Carpenter MD Work Phone: [facility]06-02-2022 13:55-0400Body .7 cmEsdras Cash MD Work Phone: [facility]06-02-2022 13:55-0400Body temperature 98.01 [degF]Esdras Cash MD Work Phone: [facility]06-02-2022 13:55-0400Body ffamnt20.39 kgEsdras Cash MD Work Phone: [facility]06-02-2022 13:55-0400Diastolic blood zfrwxido51 mm[Hg]Esdras Cash MD Work Phone: [facility]06-02-2022 13:55-0400Heart rate97 /min Esdras Cash MD Work Phone: [facility]06-02-2022 13:55-0400Respiratory rate 16 /minEsdras Cash MD Work Phone: [facility]06-02-2022 13:55-5362HkF9% (BldA) [Mass fraction]98 %Esdras Cash MD Work Phone: [facility]06-02-2022 13:55-0400Systolic blood equinjlh119 mm[Hg]Esdras Cash MD Work Phone: [facility]05-23-2022 12:09-0400Body sukixf009.7 cmEsdras Cash MD Work Phone: [facility]05-23-2022 12:09-0400Body temperature 97.59 [degF]Esdras Cash MD Work Phone: [facility]05-23-2022 12:09-0400Body sobngw68.12 kgEsdras Cash MD Work Phone: [facility]05-23-2022 12:09-0400Diastolic blood bfvsohpz39 mm[Hg]Esdras Cash MD Work Phone: [facility]05-23-2022 12:09-0400Heart rate81 /min Esdras Cash MD Work Phone: [place] [address]-23-2022 12:09-0400Respiratory rate 16 /minEsdras Cash MD Work Phone: [facility]05-23-2022 12:09-2646UwQ3% (BldA) [Mass fraction]97 %Esdras Cash MD Work Phone: [facility]05-23-2022 12:09-0400Systolic blood vmjoygtt799 mm[Hg]Esdras Cash MD Work Phone: 1(707) 342-997176 [address]16-2022 11:57-0400Body vezhbd255.7 cmMindy Mejia PA-C Work Phone: [facility]05-16-2022 11:57-0400Body temperature 96.69 [degF]Anthony Mejia PA-C Work Phone: [facility]05-16-2022 11:57-0400Body hirpvs11.11 kgMindy Mejia PA-C Work Phone: [facility]05-16-2022 11:57-0400Diastolic blood mm[Hg]Anthony Mejia PA-C Work Phone: [facility]05-16-2022 11:57-0400Heart xqbg746 /minMindy Mejia PA-C Work Phone: 1(522) 162-396176 [address]16-2022 11:57-0400Respiratory rate 18 /minMindy Mejia PA-C Work Phone: [place] [address]-16-2022 11:57-3673WvB2% (BldA) [Mass fraction]99 %Anthony Mejia PA-C Work Phone: [facility]05-16-2022 11:57-0400Systolic blood mm[Hg]Anthony Weaver PA-C Work Phone: 1(312)440-83[facility]05-16-2022 11:23-0400Body temperature 96.69 [degF]Mike Brown MD Work Phone: [address]16-2022 11:23-0400Body mttrsy52.11 kgMike Brown MD Work Phone: 1(094)[facility] [place], [place] 1782[address]-16-2022 11:23-0400Diastolic blood hcqjboku71 mm[Hg]Mike Brown MD Work Phone: 1(195)[address] [place], [place] [address]30505-16-2022 11:23-0400Heart zkxb297 /minSemily Brown MD Work Phone: 1(150)[address] [place] [address]-16-2022 11:23-0400Respiratory rate 18 /minSemily Brown MD Work Phone: 1(849)[facility] [place], [place] 1782[address]-16-2022 11:23-9008RpZ8% (BldA) [Mass fraction]99 %Mike Brown MD Work Phone: 1(047)[facility] [place], [place] 1782305-16-2022 11:23-0400Systolic blood qylsiain236 mm[Hg]Mike Brown MD Work Phone: 1(322)715-[address] [place], [place] 1782305-09-2022 11:46-0400Body agnbum977.7 cmEsdras Cash MD Work Phone: 1(236)039-[address] [place], [place] 1782[address]-09-2022 11:46-0400Body temperature 97.59 [degF]Esdras Cash MD Work Phone: 1(225)583-45[facility]05-09-2022 11:46-0400Body .66 kgEsdras Cash MD Work Phone: 1(843)024-52[facility]05-09-2022 11:46-0400Diastolic blood llluwgqj08 mm[Hg]Esdras Cash MD Work Phone: 1(444)097-54[facility]05-09-2022 11:46-0400Heart rate81 /min Esdras Cash MD Work Phone: 1(971)798-[address] [place] [address]-09-2022 11:46-0400Respiratory rate 16 /minEsdras Cash MD Work Phone: [facility]05-09-2022 11:46-6141SqG9% (BldA) [Mass fraction]97 %Esdras Cash MD Work Phone: [facility]05-09-2022 11:46-0400Systolic blood sqritwur584 mm[Hg]Esdras Cash MD Work Phone: [facility]05-09-2022 11:25-0400Body temperature 97.59 [degF]DENIA Carpenter MD Work Phone: [facility]05-09-2022 11:25-0400Body ymforq38.38 kgDENIA Carpenter MD Work Phone: [facility]05-09-2022 11:25-0400Diastolic blood ezshqnkq71 mm[Hg]DENIA Carpenter MD Work Phone: [facility]05-09-2022 11:25-0400Heart rate78 /min DENIA Carpenter MD Work Phone: [facility]05-09-2022 11:25-0400Respiratory rate 16 /FranciscaDENIA Carpenter MD Work Phone: [facility]05-09-2022 11:25-2315ZuA4% (BldA) [Mass fraction]99 %DENIA Carpenter MD Work Phone: [facility]05-09-2022 11:25-0400Systolic blood mm[Hg]DENIA Carpenter MD Work Phone: [facility]05-02-2022 09:14-0400Body dnatfj814.7 cmMinjerome Weaver PA-C Work Phone: [facility]05-02-2022 09:14-0400Body temperature 98.01 [degF]Anthony Weaver PA-C Work Phone: [facility]05-02-2022 09:14-0400Body .66 kgMinjerome Escotoer PA-C Work Phone: [facility]05-02-2022 09:14-0400Diastolic blood mm[Hg]Anthony Escotoer PA-C Work Phone: [facility]05-02-2022 09:14-0400Heart ekos724 /minMindy Mejia PA-C Work Phone: [facility]05-02-2022 09:14-0400Respiratory rate 16 /minMindy Mejia PA-C Work Phone: [facility]05-02-2022 09:14-7617TvL2% (BldA) [Mass fraction]98 %Anthony Escotoer PA-C Work Phone: [facility]05-02-2022 09:14-0400Systolic blood dicbmdmj571 mm[Hg]Anthony Escotoer PA-C Work Phone: [facility]04-25-2022 09:00-0400Body swxabt541.7 cmChair [place] Work Phone: [facility]04-25-2022 09:00-0400Body temperature 97.3 [degF]Chair Kelsey Work Phone: [facility]04-25-2022 09:00-0400Body .4 kgChair Kelsey Work Phone: [facility]04-25-2022 09:00-0400Diastolic blood zwnnsoun12 mm[Hg]Chair Kelsey Work Phone: [facility]04-25-2022 09:00-0400Heart rate85 /min Chair [place] Work Phone: [facility]04-25-2022 09:00-0400Respiratory rate 16 /minChair [place] Work Phone: [facility]04-25-2022 09:00-8763PwI8% (BldA) [Mass fraction]98 %Chair [place] Work Phone: [facility]04-25-2022 09:00-0400Systolic blood huapltpa251 mm[Hg]Chair Wilson Work Phone: [place] [address]-18-2022 13:25-0400Body .7 cmNathaly Biggs PERFUME MAKER.[employer]CH[employer]ISER Work Phone: [place] [address]-18-2022 13:25-0400Body temperature 97.59 [degF]Nathaly Biggs PERFUME MAKER.[employer] SERVICE MERCHANDISER Work Phone: [place] [address]-18-2022 13:25-0400Body .38 kgNathaly Biggs PERFUME MAKER.[employer] SERVICE MERCHANDISER Work Phone: [place] [address]-18-2022 13:25-0400Diastolic blood diwdfyzg99 mm[Hg]Nathaly Biggs PERFUME MAKER.IM[employer] SERVICE MERCHANDISER Work Phone: [place] [address]-18-2022 13:25-0400Heart rate80 /min Nathaly Biggs APRN.[employer] MERCHANDISER Work Phone: [place] [address]-18-2022 13:25-0400Respiratory rate 16 /minNathaly Biggs APRN.[employer] MERCH[employer]ISER Work Phone: [place] [address]-18-2022 13:25-5449XlH4% (BldA) [Mass fraction]96 %Nathaly Biggs PERFUME MAKER.[employer]ICE MERCHANDISER Work Phone: [place] [address]-18-2022 13:25-0400Systolic blood lbxacfqw786 mm[Hg]Nathaly Biggs PERFUME MAKER.[employer]ICE MERCHANDISER Work Phone: [place] [address]-18-2022 12:25-0400Body temperature 97.7 [degF]DENIA Carpenter MD Work Phone: [place] [address]-18-2022 12:25-0400Body stxbis61.93 kgDENIA Carpenter MD Work Phone: [place] [address]-18-2022 12:25-0400Diastolic blood lmtuiggr96 mm[Hg]DENIA Carpenter MD Work Phone: [place] [address]-18-2022 12:25-0400Heart rate77 /min DENIA Carpenter MD Work Phone: [place] [address]-18-2022 12:25-0400Respiratory rate 16 /FranciscaDENIA Carpenter MD Work Phone: [place] [address]-18-2022 12:25-9177KwT0% (BldA) [Mass fraction]98 %DENIA Carpenter MD Work Phone: [place] [address]-18-2022 12:25-0400Systolic blood ztipqlom273 mm[Hg]DENIA Carpenter MD Work Phone: [place] [address]-11-2022 12:28-0400Body xazddt888.7 Flavioinge Wilson Work Phone: [place] [address]-11-2022 11:47-0400Body cm Esdras Cash MD Work Phone: [place] [address]-11-2022 11:47-0400Body temperature 97.81 [degF]Esdras Cash MD Work Phone: [place] [address]-11-2022 11:47-0400Body leymwm59.66 kgEsdras Cash MD Work Phone: [place] [address]-11-2022 11:47-0400Diastolic blood mm[Hg]Esdras Cash MD Work Phone: [place] [address]-11-2022 11:47-0400Heart rate72 /min Esdras Cash MD Work Phone: [place] [address]-11-2022 11:47-0400Respiratory rate 16 /minEsdras Cash MD Work Phone: [place] [address]-11-2022 11:47-4033KcS2% (BldA) [Mass fraction]98 %Esdras Cash MD Work Phone: [place] [address]-11-2022 11:47-0400Systolic blood enqprfde960 mm[Hg]Esdras Cash MD Work Phone: [facility]04-11-2022 10:32-0400Body temperature 97.7 [degF]DENIA Carpenter MD Work Phone: [facility]04-11-2022 10:32-0400Body janqst67.11 kgDENIA Carpenter MD Work Phone: [facility]04-11-2022 10:32-0400Diastolic blood bkuvkcrn62 mm[Hg]DENIA Carpenter MD Work Phone: [facility]04-11-2022 10:32-0400Heart rate79 /min DENIA Carpenter MD Work Phone: [place] [address]-11-2022 10:32-0400Respiratory rate 16 /FranciscaDENIA Carpenter MD Work Phone: [place] [address]-11-2022 10:32-5530FsC9% (BldA) [Mass fraction]99 %DENIA Carpenter MD Work Phone: [place] [address]-11-2022 10:32-0400Systolic blood ypziqocu973 mm[Hg]DENIA Carpenter MD Work Phone: [facility]03-31-2022 16:11-0400Body cm Esdras Cash MD Work Phone: [facility]03-31-2022 16:11-0400Body temperature 97 [degF]Esdras Cash MD Work Phone: [facility]03-31-2022 16:11-0400Body .84 kgEsdras Cash MD Work Phone: [facility]03-31-2022 16:11-0400Diastolic blood jkekizry42 mm[Hg]Esdras Cash MD Work Phone: [facility]03-31-2022 16:11-0400Heart rate68 /min Esdras Cash MD Work Phone: [facility]03-31-2022 16:11-0400Respiratory rate 16 /minEsdras Cash MD Work Phone: [place] [address]-31-2022 16:11-6147DqY0% (BldA) [Mass fraction]99 %Esdras Cash MD Work Phone: [facility]03-31-2022 16:11-0400Systolic blood emuehspx845 mm[Hg]Esdras Cash MD Work Phone: [facility]03-29-2022 11:02-0400Body temperature 98.29 [degF]DENIA Carpenter MD Work Phone: [facility]03-29-2022 11:02-0400Body .11 kgDENIA Carpenter MD Work Phone: [facility]03-29-2022 11:02-0400Diastolic blood nqeuptbo50 mm[Hg]DENIA Carpenter MD Work Phone: [facility]03-29-2022 11:02-0400Heart rate69 /min DENIA Carpenter MD Work Phone: [facility]03-29-2022 11:02-0400Respiratory rate 16 /FranciscaDENIA Carpenter MD Work Phone: [facility]03-29-2022 11:02-4475ZxU5% (BldA) [Mass fraction]99 %DENIA Carpenter MD Work Phone: [facility]03-29-2022 11:02-0400Systolic blood zsonjbhd690 mm[Hg]DENIA Carpenter MD Work Phone: [facility]09-21-2018 18:46-0400Respiratory rate NOT REPORTEDRATPEDRO NaqviAvalon Municipal HospitalComment on above: Performed By: #### OHP, IOCAL ####[address] [phone] 23:55-0400Respiratory rateNOT REPORTEDRATUL [facility] HospitalComment on above:Performed By: #### ERTPF, CONNER, LIP, LIVP, TEGCR ####[facility] [address] [place] [phone]) [phone] 22:58-0400Respiratory rateNOT REPORTEDRATUL [facility] HospitalComment on above:Performed By: #### OHP, IOCAL ####[facility] [address] [place] [address] 01-19-2018 22:10-0400Respiratory rateNOT REPORTEDRATUL [facility] HospitalComment on above:Performed By: #### OHP, IOCAL ####[facility] [address] [place] [phone] 21:07-0400 Respiratory rateNOT REPORTEDRATGrant Hospital Comment on above:Performed By: #### ERTPF, CONNER, LIP, LIVP, TEGCR ####[facility] [address] [place] [address] Encounters Encounter DateEncounter TypeCare ProviderFacilityStart: 02-21-2025 End: 27-27-8973ndoadfeiugVQTR A NADERERFacility:[facility] Hospitaltart: 01-10-2025 End: 61-83-1006Grwwiq flowsChristine Shepherd DPM Work Phone: [facility] PodiatryStart: 01-10-2025 End: 66-56-6646Hialvt Raj Shepherd DPM Work Phone: [facility] PodiatryStart: 01-10-2025 End: 46-70-3341Pnklov outpatient new 45 minutesAnthbubba S Joao DPM Work Phone: no[facility] PodiatryComment on above:Metatarsalgia of left foot (Primary Dx); Closed displaced fracture of second metatarsal bone of left foot, sequela; Left foot pain; Equinus contracture of left ankle; Other synovitis and tenosynovitis, left ankle and footStart: 01-10-2025 End: 98-60-7132tcplxgabeuIJCKCHS Concepcion SHEPHERDFelisa AvailableStart: 12-30-2024 End: 83-71-0136Ttepkgvxg encounterGildardo Lacy MD Work Phone: noMS [facility] MedicineStart: 12-21-2024 End: 76-04-5175Sehxub outpatient new 45 minutesLeanne Christopher Vendobots DO Work Phone: noms FNR PULMComment on above:Cigarette smoker (Primary Dx); Chronic obstructive pulmonary disease, unspecified COPD type (HCC); Chronic hypoxic respiratory failure (HCC)Start: 12-21-2024 End: 59-23-6297ytxcnrfnmlCVCESG K STRACKNot AvailableStart: 12-21-2024 End: 44-09-3003Bwkfev flowsheetMaria Me K Vendobots DO Work Phone: noms FNR PULMStart: 12-21-2024 End: 87-65-1017Ipiiro uma information technologyheetLecrowe Bundlr DO Work Phone: noms FNR PULMStart: 12-21-2024 End: 81-90-1461Nqwgpflgc encounterGildardo Lacy MD Work Phone: noms [facility] MedicineStart: 12-20-2024 End: 61-15-0010Yujkprrff Result EncounterGeneric External Data ProviderNOMS External Department UnsolicitedStart: 12-20-2024 End: 53-97-8717Cmbmvljqh Result EncounterGeneric External Data ProviderNOMS External Department UnsolicitedStart: 12-20-2024 End: 92-49-8960Mhrgvw outpatient visit 15 minutesG Сергей Carpenter MD Work Phone: Radiation OncologyComment on above:Hypothyroidism due to acquired atrophy of thyroid (Primary Dx)Start: 12-20-2024 End: 23-65-7159pjaknkxhxhDCEP A NADERERFacility:[facility] Hospitaltart: 12-13-2024 End: 89-68-6870KdjbasJbggHeather Lacy MD Work Phone: noms CWM FMComment on above:Chronic obstructive pulmonary disease, unspecified COPD type (HCC); DDD (degenerative disc disease), thoracicStart: 12-08-2024 End: 09-05-5274ajbszfnmueTVBMIXGE [facility] Centertart: 11-18-2024 End: 00-47-8960Sfsimotvq for other preprocedural examinationParkwood Hospitaltart: 11-18-2024 End: 63-69-7771Xehkliobyf and management of inpatientOhioHealth Hardin Memorial Hospitaltart: 11-17-2024 End: 27-61-2825xitugysjwzLIUT [facility] Start: 11-16-2024 End: 87-91-4326XkimbyBarn Naderer MD Work Phone: noms CWM FMComment on above:DDD (degenerative disc disease), thoracicStart: 11-15-2024 End: 90-73-3981bmvtpqhgvbMIQIJKICleveland Clinic Euclid Hospital Start: 11-07-2024 End: 29-99-2956aptpvfunefJNXR NADERERNot AvailableStart: 62-16-1618Kzepaduuu for other preprocedural examinationGrand Lake Joint Township District [facility] Start: 10-31-2024 End: 23-73-1161sccfbvhyanWQYWUMChillicothe VA Medical Centertart: 10-26-2024 End: 21-06-8147rcwdadcrzgQWYUXOSC[facility] Clinic [facility] Hospital Start: 10-17-2024 End: 28-39-8535XsenllJkcgHeather Lacy MD Work Phone: noms CWM FMComment on above:Chronic obstructive pulmonary disease, unspecified COPD type (HCC) (Primary Dx); Chronic hypoxic respiratory failure (HCC); DDD (degenerative disc disease), thoracicStart: 10-11-2024 End: 14-25-5466Vwzwtgrosa Lacy MD Work Phone: noms CWM FMStart: 10-11-2024 End: 13-03-9082Sqzjirrosa Lacy MD Work Phone: noms CWM FMStart: 10-11-2024 End: 29-00-1178Knkktb outpatient visit 25 minutesGildardo Lacy MD Work Phone: noms CWM FMComment on above:Essential hypertension (CMS/HCC) (Primary Dx); Chronic obstructive pulmonary disease, unspecified COPD type (CMS/HCC); Chronic hypoxic respiratory failure (CMS/HCC); Thoracic spondylosis; MDD (major depressive disorder), recurrent episode, mild (HCC) (CMS/HCC); Primary insomnia; Tongue cancer (CMS/HCC); Occlusion of left internal carotid arteryStart: 10-11-2024 End: 35-05-7379idssjbaaynNZRP NADERERNot AvailableStart: 09-19-2024 End: 20-19-3481JavorcZmai Naderer MD Work Phone: noms CWM FMComment on above:DDD (degenerative disc disease), thoracicStart: 09-12-2024 End: 26-72-3681Gudswq outpatient visit 25 minutesCarmen Neely MD Work Phone: [facility] Access HospitalComment on above:Chronic obstructive pulmonary disease, unspecified COPD type (Multi) (Primary Dx); PVD (peripheral vascular disease) (CMS-HCC); Current smoker; Dyspnea, unspecified type; Hyperlipidemia, unspecified hyperlipidemia type; TIA (transient ischemic attack)Start: 09-12-2024 End: 65-49-5469xlqrluhgwhTZGOTZ M [facility] AmbulatoryStart: 09-08-2024 End: 12-94-3380Oxcmtlrosa Lacy MD Work Phone: noms CWM FMStart: 09-08-2024 End: 87-59-7392Sffrqu flowsheetGildardo Lacy MD Work Phone: noms CWM FMStart: 09-08-2024 End: 99-74-5628Kamauwvucynd care manage srvc 7 day dischargeGildardo Lacy MD Work Phone: noms CWM FMComment on above:Pneumonia due to infectious organism, unspecified laterality, unspecified part of lung (Primary Dx); Chronic obstructive pulmonary disease with acute exacerbation ([facility]); Acute hypoxic respiratory failure ([facility]); Chronic obstructive pulmonary disease, unspecified COPD type ([facility]); Tongue cancer ([facility]); Dyslipidemia ([facility])Start: 09-08-2024 End: 63-98-5010helvyjplsqXHAE NADERERNot AvailableStart: 09-06-2024 End: 05-50-2456KehvecOizw Naderer MD Work Phone: noms CWM FMComment on above:Primary insomniaRefill RequestStart: 09-05-2024 End: 63-14-0858Rkcasr outpatient visit 25 minutesNikos Moon MD Work Phone: [facility] HospitalComment on above:Sequelae, post-stroke (Primary Dx); PAD (peripheral artery disease); Hypertension, unspecified type; Hyperlipidemia, unspecified hyperlipidemia type; Left ventricular hypertrophy; ICAO (internal carotid artery occlusion), left; Chronic obstructive pulmonary disease, unspecified COPD type ([facility]); History of throat cancer; Tobacco dependence; Alcoholism ([facility])Start: 09-05-2024 End: 65-18-4892mdhnydlabwHFOS AFREENUniversity Hospitals Health System HospitalStart: 08-30-2024 End: 66-08-9594Piyiwblhz Result EncounterGeneric External Data ProviderNOMS External Department UnsolicitedStart: 08-30-2024 End: 27-55-7289Bdfklckec Result EncounterGeneric External Data ProviderNOMS External Department UnsolicitedStart: 08-24-2024 End: 45-62-7153AjfqnmSnva Naderer MD Work Phone: NOMS CWM FMComment on above:DDD (degenerative disc disease), thoracicStart: 08-03-2024 End: 98-43-4133Kpydpu flowsmarandaAna Laurasa [place] PRELOAD SUPERVISOR Work Phone: NOMS CWM FMStart: 08-03-2024 End: 61-61-2064Yoejai flowsheetAna Laurasa [place] PRELOAD SUPERVISOR Work Phone: NOJI CWM FMStart: 08-03-2024 End: 83-74-4410Kmilvr outpatient visit 25 minutesLisa Caldwelltapan PRELOAD SUPERVISOR Work Phone: NOKO CWM FMComment on above:Cerebrovascular accident (CVA), unspecified mechanism (CMS/HCC) (Primary Dx); Occlusion of left internal carotid artery; Dyslipidemia (CMS/HCC); Essential hypertension (CMS/HCC)Start: 08-03-2024 End: 28-03-0826xawnelopwhBLLO Raghav AvailableStart: 19-42-2112ozjkzbdjrcNorth [facility] Ambulatory PPGStart: 07-26-2024 End: 54-08-1373Gastrrcmq encounterTa-Jacqueline JustinMayo Memorial HospitalMedica Neurology, A Department of ProMedicDayton Osteopathic HospitalComment on above:STROKE apptStart: 07-25-2024 End: 08-10-7448Muxfpunzw department patient visitJohn [facility]. [facility] Ambulatory PPGStart: 07-25-2024 End: 40-69-9166PatcypGqrc Naderer MD Work Phone: NOMS CWM FMComment on above:DDD (degenerative disc disease), thoracicStart: 07-23-2024 End: 16-80-4455Gnohjmvjv department patient visitJohn L. [facility] Ambulatory PPGStart: 06-24-2024 End: 09-24-1726WzumcvMsgn Naderer MD Work Phone: NOQA CWM FMComment on above:DDD (degenerative disc disease), thoracicStart: 06-21-2024 End: 30-33-4867Nniadj outpatient visit 15 minutesG Сергей Carpenter MD Work Phone: Radiation OncologyComment on above:Head and neck cancer (HCC) (Primary Dx)Start: 06-21-2024 End: 94-46-2481vbaeqkhqlaSGGM A NADERERFacility:[facility] Hospitaltart: 06-10-2024 End: 54-87-7222Ynqveegpg Result EncounterGeneric External Data ProviderNOMS External Department UnsolicitedStart: 06-10-2024 End: 39-15-0219Cdznumnuo Result EncounterGeneric External Data ProviderNOMS External Department UnsolicitedStart: 06-10-2024 End: 85-98-8252Vuvpzgc encounter Danay Miguel MD Work Phone: OrthopaedicsComment on above:Nontraumatic complete tear of right rotator cuff (Primary Dx); Biceps tendinitis of right upper extremity; SmokingStart: 06-10-2024 End: 46-42-9037smvnbslowsGZAF A NADERERFacility:[facility] Hospitaltart: 06-10-2024 End: 97-84-4644Tmqsghjofa hospital visit by physicianXr Main L99XfkjqmulqZcbgimc on above:Pain [R52]Start: 06-07-2024 End: 35-21-4000Coryvj Yanely Miguel MD Work Phone: OrthopaedicsComment on above:Pain (Primary Dx)Start: 06-01-2024 End: 57-59-0174Tazlpd outpatient visit 15 minutesGildardo Lacy MD Work Phone: noms CWM FMComment on above: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); Unsteady gait; Tongue cancer (CMS/HCC); Chronic obstructive pulmonary disease, unspecified COPD type (CMS/HCC)Start: 06-01-2024 End: 61-20-7379crwqsjpadgOWIO NADERERNot AvailableStart: 05-26-2024 End: 27-12-4649IpdrkaSatz Naderer MD Work Phone: noms CWM FMComment on above:DDD (degenerative disc disease), thoracicStart: 05-25-2024 End: 48-29-1527GsfkdkXctg Naderer MD Work Phone: noms CWM FMComment on above:DDD (degenerative disc disease), thoracicStart: 05-24-2024 End: 62-59-6134Pbgqmk flowsheetCassie PHAN Work Phone: noms FB ORTHOPAEDICSStart: 05-24-2024 End: 00-31-2827Nyotnf flowsheetCassie PHAN Work Phone: noms FB ORTHOPAEDICSStart: 05-24-2024 End: 70-30-8156Xyikqy follow up visit related to original Allie PHAN Work Phone: noms FB ORTHOPAEDICSComment on above:S/P arthroscopy of right shoulder (Primary Dx); Internal derangement of shoulder, right; Arthralgia, unspecified jointStart: 05-24-2024 End: 46-20-3895nwbxqigxjcTCNYGUN J MEYERNot AvailableStart: 05-12-2024 End: 47-47-2319Oyjrafaku encounterCassie PHAN Work Phone: NOKP SWS ORTHOComment on above:OrderStart: 05-06-2024 End: 84-73-2694Qhljlk flowsPavan PHAN Work Phone: NOVJ FB ORTHOPAEDICSStart: 05-06-2024 End: 59-64-6009Jladzn flowsPavan PHAN Work Phone: NOJV FB ORTHOPAEDICSStart: 05-06-2024 End: 56-01-1547Ggahcp follow up visit related to original Allie PHAN Work Phone: NOTC FB ORTHOPAEDICSComment on above:S/P arthroscopy of right shoulder (Primary Dx); Internal derangement of shoulder, rightStart: 05-06-2024 End: 37-31-8559yjthftgsjsNNGUXEX J MEYERNot AvailableStart: 04-21-2024 End: 67-56-6299QqnevqAwrw Naderer MD Work Phone: noms CWM FMComment on above:DDD (degenerative disc disease), thoracicStart: 04-12-2024 End: 77-51-3613Ogituc Barbara Lacy MD Work Phone: NOZU CWM FMStart: 04-12-2024 End: 60-92-9342Ayhvwc Barbara Lacy MD Work Phone: noms CWM FMStart: 04-12-2024 End: 49-42-2625Kctpzxc encounter procedureGildardo Lacy MD Work Phone: [facility] Work Phone: Start: 04-12-2024 End: 45-21-3357Sljpsb follow up visit related to original Raffi Lacy MD Work Phone: noms CWM FMComment on above:Medicare annual wellness visit, subsequent (Primary Dx); Left foot painStart: 04-12-2024 End: 23-85-5792sykursnrtyDYEO NADERERNot AvailableStart: 04-04-2024 End: 37-31-3431YecwgwOtpinll [facility] Work Phone: [facility] PharmacyComment on above: Refill RequestStart: 03-29-2024 End: 79-90-5971UrkhegTdpy Naderer MD Work Phone: noms CWM FMComment on above:Thoracic spondylosis; DDD (degenerative disc disease), thoracicStart: 03-23-2024 End: 41-45-6023Gfeqrd Geo PHAN Work Phone: noms FB ORTHOPAEDICSStart: 03-23-2024 End: 59-69-5903Riexgb Geo PHAN Work Phone: noms FB ORTHOPAEDICSStart: 03-23-2024 End: 75-88-9112Ttmure follow up visit related to original Allie PHAN Work Phone: noms FB ORTHOPAEDICSComment on above:S/P arthroscopy of right shoulder (Primary Dx)Start: 03-23-2024 End: 86-89-6640mczpwvtzquRFMFVNE J MEYERNot AvailableStart: 03-01-2024 End: 57-18-6612UnwqzrTkwe Naderer MD Work Phone: NOAF CWM FMComment on above:DDD (degenerative disc disease), thoracicStart: 02-29-2024 End: 82-84-8631Ickqcy Barbara Lacy MD Work Phone: NOWR CWM FMStart: 02-29-2024 End: 65-23-3305Bghial Barbara Lacy MD Work Phone: NODQ CWM FMStart: 02-29-2024 End: 13-72-9167Azhxte outpatient visit 15 minutesGildardo Lacy MD Work Phone: noms CWM FMComment on above:Chronic obstructive pulmonary disease, unspecified COPD type (CMS/HCC) (Primary Dx); Need for immunization against influenzaStart: 02-29-2024 End: 45-21-7770gytqyykkmdGHHU NADERERNot AvailableStart: 02-23-2024 End: 17-37-4368Brdvhz flowsPavan PHAN Work Phone: noms FB ORTHOPAEDICSStart: 02-23-2024 End: 94-50-1803Bxncwt flowsPavan PHAN Work Phone: noms FB ORTHOPAEDICSStart: 02-23-2024 End: 79-83-5636Vzhhqt follow up visit related to original Allie PHAN Work Phone: noms FB ORTHOPAEDICSComment on above:S/P arthroscopy of right shoulder (Primary Dx)Start: 02-23-2024 End: 90-89-7379wzprpbkqvcHGCZAST J MEYERNot AvailableStart: 02-22-2024 End: 36-17-7012OywptaOfwd Naderer MD Work Phone: NOTK CWM FMComment on above:Primary insomniaStart: 02-08-2024 End: 38-19-0536Guxaxgroq encounterJesse George PRELOAD SUPERVISOR Work Phone: NOSD FB ORTHOPAEDICSStart: 02-02-2024 End: 81-34-5776Xwlgjj flowsPavan PHAN Work Phone: NOWR FB ORTHOPAEDICSStart: 02-02-2024 End: 14-20-4640Ffwznw Geo PHAN Work Phone: NODR FB ORTHOPAEDICSStart: 02-02-2024 End: 33-80-3300ycuyugiospEWHRDIS J MEYERNot AvailableStart: 02-02-2024 End: 29-47-6859Hrhvbgm encounter procedureCassie PHAN Work Phone: NOSP FB ORTHOPAEDICSComment on above:Preop examination (Primary Dx)Start: 02-02-2024 End: 43-30-8501Uqtatkkihucwj examination doneCassie PHAN Work Phone: NOVR HealthcareStart: 01-11-2024 End: 65-54-5832Daxtoibkr encounterJr. Martin Chen DO Work Phone: NOEE FB ORTHOPAEDICSStart: 01-05-2024 End: 08-50-3293MzpoibQwzk Naderer MD Work Phone: NOGS CWM FMComment on above:DDD (degenerative disc disease), thoracicStart: 12-31-2023 End: 95-66-3782ItollcVxaeqva LykinsNOMS CWM FMComment on above:DDD (degenerative disc disease), thoracicStart: 12-28-2023 End: 78-17-1343Cxurbg flowsheetJmarion Chen DO Work Phone: noms FB ORTHOPAEDICSStart: 12-28-2023 End: 89-97-5275Qwcgte flowsheetJr. Martin Chen DO Work Phone: noms BOOGIE ORTHOPAEDICSStart: 12-28-2023 End: 43-91-8194Yiowxb outpatient visit 25 minutesJr. Martin Chen DO Work Phone: noms FB ORTHOPAEDICSComment on above:Internal derangement of right shoulder (Primary Dx)Start: 12-22-2023 End: 72-21-9989Aebjhrimx therapyEsdras Cash MD Work Phone: Hematology/OncologyComment on above: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); Severe protein-calorie malnutrition (HCC)Start: 12-22-2023 End: 37-65-2181Hgvjyoa encounter procedureG Сергей Carpenter MD Work Phone: Radiation OncologyComment on above:Head and neck cancer (HCC) (Primary Dx); History of radiation therapyStart: 12-15-2023 End: 15-88-6388Rejcjwiwdq hospital visit by physicianArrival Time Radiology Work Phone: Radiology Pet CTComment on above:Cancer of base of tongue (HCC) [C01]Start: 11-17-2023 End: 50-21-3675Cxeivs outpatient visit 25 minutesCarmen Neely MD Work Phone: [facility] DothanComment on above:PVD (peripheral vascular disease) ([facility]-HCC); Hyperlipidemia, unspecified hyperlipidemia type; TIA (transient ischemic attack); BMI less than 19,adult; Current smokerStart: 11-17-2023 End: 10-01-8965dpoovbsmdrGKUUWQ M IBRAHIMMer[facility] AmbulatoryStart: 11-02-2023 End: 71-29-0123Sufeiusjs department patient visitPremier Healthtart: 09-08-2023 End: 93-49-8401Edaeefp encounter procedureMD Gildardo Lacy Work Phone: [facility] [place] Work Phone: Start: 09-08-2023 End: 06-09-6596qcpiefybotJG Gildardo Lacy Work Phone: [facility] Work Phone: Start: 08-18-2023 End: 74-49-9262Tdhhlvjas therapyEsdras Cash MD Work Phone: Hematology/OncologyComment on above: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); Malaise and fatigue; Chronic obstructive pulmonary disease, unspecified COPD type (HCC); Severe protein-calorie malnutrition (HCC); Cancer related painStart: 08-18-2023 End: 50-10-9219Qecoqle encounter Jordi Cash MD Work Phone: SANDUSKYComment on above:Head and neck cancer (HCC) (Primary Dx); History of radiation therapyStart: 88-93-6042GrhapbVjdrt R Murphy MD Work Phone: Hematology/OncologyComment on above:Refill Request Start: 05-06-2023 End: 38-15-1765Rmnudh outpatient visit 25 minutesCarmen Neely MD Work Phone: [facility] on above:PVD (peripheral vascular disease) (CMS/HCC) (Primary Dx); Abnormal EKG; TIA (transient ischemic attack); Current smoker; Hyperlipidemia, unspecified hyperlipidemia type; Pulmonary emphysema, unspecified emphysema type (CMS/HCC)Start: 46-91-0590Pytdrh Esdras Cash MD Work Phone: Hematology/OncologyComment on above:Refill Request Start: 99-05-7628Duydxrafu encounterJudith Lorenz RNHematology/OncologyStart: 87-51-6247MfppinOtigpAmarilis Biggs APRN.CNP Work Phone: Hematology/OncologyComment on above:Refill Request Start: 02-11-2023 End: 33-81-0878Xshnmgkzhm hospital visit by physicianArrival Time Radiology Work Phone: Radiology Pet CTStart: 01-27-2023 End: 22-41-8298Zhgdrqo encounter procedureG Сергей Carpenter MD Work Phone: Radiation OncologyComment on above:Oropharnyx cancer (HCC) (Primary Dx); Severe protein-calorie malnutrition (HCC); Chronic obstructive pulmonary disease, unspecified COPD type (HCC)Start: 75-20-2446NpdmewNrshg R Murphy MD Work Phone: Hematology/OncologyComment on above:Refill Request Start: 09-10-2022 End: 68-07-4922Tfskwkgvik hospital visit by physicianArrival Time Radiology Work Phone: Radiology Pet CTComment on above: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]Start: 08-30-2022 End: 19-39-2848lsdzeqhvcmBS GILDARDO MASSEYRFacility:V9Cfeff: 93-74-2155Oevuhfaps encounterNatpaz Haynes RNHematology/OncologyComment on above:OrdersStart: 08-04-2022 End: 74-13-3862qtnpssqjbpAD CARMEN GROVESFacility:H9Zgcmq: 07-14-2022 ambulatoryMR CASSIE HOOD .Facility:F6Ftoyx: 67-31-9111Vzipfb outpatient visit 25 minutesGildardo Lacy Work Phone: [phone]-QpbbdWelia Health 250 DO Work Phone: Start: 18-14-5362kxsxeikbrjCgVinod Lacy Facility:[id number]: 05-20-2022 End: 63-58-3200mxcwjnaxkbKupag R Murphy MD Work Phone: Hematology/OncologyComment on above: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)Start: 05-20-2022 End: 17-85-8111Hiifncn encounter procedureEsdras Cash MD Work Phone: SANDUSKYStart: 04-17-2022 End: 68-25-6422Fjscril encounter procedureG Сергей Carpenter MD Work Phone: Radiation OncologyComment on above: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)Start: 04-15-2022 End: 23-81-8963honhkrocmbVT BELLA Daviscility:K1Vulyd: 04-14-2022 End: 37-91-6434Kdhgcljbtr hospital visit by physicianArrival Time Radiology Work Phone: Radiology Pet CTComment on above: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]Start: 02-25-2022 End: 53-54-5206Qovvxqq encounter procedureG Сергей Carpenter MD Work Phone: Radiation OncologyComment on above:Oropharnyx cancer (HCC) (Primary Dx)Start: 02-18-2022 End: 19-30-5546seuldjuqwbMzbcb R Murphy MD Work Phone: Hematology/OncologyComment on above: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); Cancer related pain; Need for influenza vaccinationStart: 02-18-2022 End: 30-72-5526Lmmomfh encounter procedureEsdras Cash MD Work Phone: SANDUSKYStart: 02-06-2022 End: 01-11-3300yufgtnptgtFM GILDARDO Butler NADERERFacility:K8Gndxx: 02-04-2022 End: 10-30-6614vgmgwyyvecCX STEVEN R ZIEBERFacility:Y9Kjjde: 76-33-4777Kwuwp UpdateMarc A Naderer Work Phone: [phone]-Ntizt [facility] [address] DO Work Phone: Start: 73-57-5117Zlrmhlz encounter procedureMarc A Naderer Work Phone: [phone]-Soslz [facility] [address] [place] Work Phone: Start: 20-47-2482njmuhchtryBnVinod Neely Facility:[id number]: 12-26-2021 End: 46-95-3250Lzrcnri encounter procedureG Сергей Carpenter MD Work Phone: Radiation OncologyComment on above:Head and neck cancer (HCC) (Primary Dx); Oropharnyx cancer (HCC)Start: 12-23-2021 End: 90-00-1679Eecmacpwof hospital visit by physicianArrival Time Radiology Work Phone: Radiology Pet CTComment on above: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 Gildardo Lacy Facility:[id number]: 04-43-8149IxklsfUdmmmAmarilis Biggs APRN.CNP Work Phone: Radiation OncologyComment on above:Refill Request Start: 11-25-2021 End: 47-33-1245ojzpbcbvhqSL DOCTOR MISCFacility:U9Ywekk: 11-21-2021 End: 81-62-1440Ycttfha encounter procedureG Сергей Carpenter MD Work Phone: Radiation OncologyComment on above:Oropharnyx cancer (HCC) (Primary Dx)Start: 11-20-2021 End: 19-43-8186gwezrxebraAF GILDARDO SHAIKHERERFacility:G4Fijwv: 10-04-2021 End: 70-11-5931gxttoxdkbnHwhpppszzd [address] Work Phone: sANDUSKYStart: 10-04-2021 End: 78-72-4690Imlnmuzeo therapyJalevi Wilhelm RD Work Phone: Nutrition TherapyComment on above:Nutrition Telephone Start: 10-03-2021 End: 82-22-9409Qewqiitug therapyEsdras Cash MD Work Phone: Hematology/OncologyComment on above:Oropharnyx cancer (HCC) (Primary Dx); Malaise and fatigue; Severe protein-calorie malnutrition (HCC)Start: 10-03-2021 End: 45-87-4413Kgwekyg encounter Jordi Cash MD Work Phone: SANDUSKYStart: 45-75-5990Blwmlyx encounter procedureKathrine Carpenter MD Work Phone: SANDUSKYStart: 21-93-5716Xzkzneqmx Oncology NoteG Сергей Carpenter MD Work Phone: Radiation OncologyComment on above:Completion Note Start: 09-25-2021 End: 42-16-2602bwizotajplPdanpxbfqt [address] RD Work Phone: [phone]: 09-25-2021 End: 72-76-0129Xvoxspzcz therapyJackristen Wilhelm RD Work Phone: Nutrition TherapyComment on above:Nutrition Counseling Start: 87-00-0173Fudfggopt encounterCynthia Cutler RN Work Phone: Hematology/OncologyComment on above:Care Coordination (Discharge Follow Up)Start: 09-23-2021 End: 87-41-7000vuxgczwxqhEwktv R Murphy MD Work Phone: Hematology/OncologyComment on above:Oropharnyx cancer (HCC) (Primary Dx)Start: 09-23-2021 End: 52-47-5371Roioelv encounter Jordi Cash MD Work Phone: SANDUSKYStart: 64-68-7957Jpuvqdxco encounterCynthia Cutler RN Work Phone: Hematology/OncologyComment on above:Care Coordination (Hospital Admission)Start: 09-19-2021 End: 47-09-8670Eobmjrgvwl and management of inpatientMARC NADERERFacility:[facility] Start: 45-01-0240Ulsnkbfyl encounterCynthia Cutler RN Work Phone: Hematology/OncologyComment on above:Care Coordination (Pt Update)Start: 28-51-8493Yzdfmanth encounterKathrine Carpenter MD Work Phone: Radiation OncologyComment on above:Nausea (Radiation Cancelled)Start: 68-42-6257Wmrvivhci encounterAmira Powell LSWHematology/Oncology Comment on above:Social Work Services (Gas card program)Care Coordination (Xray) Start: 09-16-2021 End: 24-88-5741cxywknlmxdPvgvy Luly Kelsey Work Phone: Hematology/OncologyComment on above:Nausea (Primary Dx); Lower abdominal pain; Cancer of base of tongue (HCC)Lower abdominal pain (Primary Dx); Cancer of base of tongue (HCC); NauseaStart: 09-16-2021 End: 29-33-1283Fkvkygw encounter procedureAnthony Weaver PA-C Work Phone: SANDUSKYComment on above: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)Start: 33-47-3510Bzswwjtez encounterEsdras Cash MD Work Phone: Hematology/OncologyComment on above:Patient Update (neuropathy)Start: 09-09-2021 End: 51-32-8985pftxlxjninDmnqydccdq [address] RD Work Phone: sANDUSKYStart: 09-09-2021 End: 80-56-8493Tkfhweuyz therapyJalevi Wilhelm RD Work Phone: Nutrition TherapyComment on above:Nutrition Counseling 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); Severe protein-calorie malnutrition (HCC)Start: 09-09-2021 End: 75-93-6254Bbcgzql encounter procedureKathrine Carpenter MD Work Phone: Radiation OncologyComment on above: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)Start: 09-02-2021 End: 96-22-5303igoenueascKrpde M Musser PA-C Work Phone: Hematology/OncologyComment on above: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)Start: 09-02-2021 End: 74-98-8292Rnpirhr encounter procedureAnthony Weaver PA-C Work Phone: SANDUSKYStart: 08-26-2021 End: 26-71-2195Xbhxssr encounter procedureKathrine Carpenter MD Work Phone: Radiation OncologyComment on above: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)Start: 08-26-2021 End: 12-81-1986lcmgnasejxIscnuvtuoz [address] RD Work Phone: sANDUSKYStart: 08-26-2021 End: 37-97-8317Pdktpbqcq therapyJalevi Wilhelm RD Work Phone: Nutrition TherapyComment on above:Nutrition Assessment Oropharnyx cancer (HCC) (Primary Dx); Cancer of base of tongue (HCC); Oropharyngeal dysphagia; Chronic obstructive pulmonary disease, unspecified COPD type (HCC); Heart disease; Cancer related pain; Anxiety and depression; Severe protein-calorie malnutrition (HCC); Malaise and fatigue; Hypertension, unspecified type; TachycardiaStart: 08-19-2021 End: 85-81-7284kxjxvmtjfvMhpvsmpzra Ka[address]zel RD Work Phone: sANDUSKYComment on above: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)Start: 08-19-2021 End: 20-44-3616Gzgstvdcb therapyNathaly Biggs APRN.CNP Work Phone: Hematology/OncologyComment on above:Oropharnyx cancer (HCC) (Primary Dx); Cancer of base of tongue (HCC); Oropharyngeal dysphagia; Chronic obstructive pulmonary disease, unspecified COPD type (HCC); Heart disease; Cancer related pain; Anxiety and depression; Severe protein-calorie malnutrition (HCC); Malaise and fatigue; Hypertension, unspecified type; TachycardiaNutrition CounselingStart: 08-19-2021 End: 16-41-3516Upmyajc encounter procedureNathaly Biggs APRN.CNP Work Phone: SANDUSKYComment on above: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)Start: 30-93-6225Okacheifi encounterRebecca Sessler RN Work Phone: Hematology/OncologyComment on above:Care Coordination (C1D1 Post Treatment Call)Start: 84-30-1668Sszbowfff encounterCynthia Cutler RN Work Phone: Hematology/OncologyComment on above:Care Coordination (Education Material)Start: 08-12-2021 End: 81-28-3425fjbeagzrlzPdckx [address] Work Phone: Hematology/OncologyComment on above: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)Oropharnyx cancer (HCC) (Primary Dx)Start: 08-12-2021 End: 38-29-8770Subvvum encounter procedureEsdras Cash MD Work Phone: SANDUSKYStart: 08-12-2021 End: 49-98-2339Gsdixwa encounter procedureG Сергей Carpenter MD Work Phone: Radiation OncologyComment on above: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)Start: 08-09-2021 End: 89-56-2056kijuymrlshWgjyohd Troyer PT, DPT Work Phone: [facility] Physical TherapyComment on above:Physical deconditioning (Primary Dx); Current smokerStart: 80-32-3882uhqfkpocurOpxkhjy Sessler RN Work Phone: Hematology/OncologyComment on above:Chemotherapy Treatment (Carboplatin)Start: 36-84-0086Uqgaxka encounter procedureCcf Provider [facility] DepartmentStart: 06-49-2024Anslsrnym encounterCynthia Cutler RN Work Phone: Hematology/OncologyComment on above:Care Coordination (Antiemetics)Start: 08-01-2021 End: 89-48-1879wchbsefbteXbmqw R Murphy MD Work Phone: Hematology/OncologyComment on above: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); Malaise and fatigueStart: 08-01-2021 End: 22-46-3328zttuhalpyfNlnftorran Ka[address] RD Work Phone: sANDUSKYStart: 08-01-2021 End: 55-04-1356Bjxptfcyd therapyJalevi Wilhelm RD Work Phone: Nutrition TherapyComment on above:Nutrition Assessment Start: 08-01-2021 End: 32-39-4529Wfpuxcq encounter procedureEsdras Cash MD Work Phone: SANDUSKYStart: 50-52-5209Jriujcjcp Oncology NoteG Сергей Carpenter MD Work Phone: Radiation OncologyComment on above:Simulation Note Treatment PlanningStart: 08-01-2021 End: 39-96-9778Oymddtnzsi hospital visit by physicianG Сергей Carpenter MD Work Phone: Radiology Pet CTStart: 07-30-2021 End: 21-52-7349XrfljsJqpgq R Murphy MD Work Phone: Radiation OncologyComment on above:Refill Request Oropharnyx cancer (HCC) (Primary Dx)Start: 05-28-2021 End: 06-81-0492Ltjkbwlpou and management of inpatientJEFFERY KATKOFacility:[facility] Start: 04-05-2021 End: 84-76-4611Dmwcfkdwmp hospital visit by physicianArrival Time Radiology Work Phone: Radiology Pet CTComment on above:Malignant neoplasm of head, face and neck (HCC) [C76.0]Start: 02-16-2018 End: 14-86-3094Gtyxwey encounter procedureKamaldeen O AgoroFacility:[facility] Hospitaltart: 02-16-2018 End: 61-92-5090Lupubak encounter procedureNORA Chen [facility] Centertart: 01-19-2018 End: 57-60-2453Wgszriyotk and management of inpatientRATUL RAYCHAUDRIWooster Community Hospital Procedures DateProcedureProcedure DetailPerforming ClinicianStart: 96-66-9130FEY TSH W/REFLEX WC2Wjdnwvg External Data ProviderStart: 30-45-3518Vxiyk of thyroid stimulating hormone tshG Сергей Carpenter MD Work Phone: Start: 83-59-3763TGPEH CULTURE 2Generic External Data ProviderStart: 48-58-0798CNFWU CULTURE 1Generic External Data ProviderStart: 42-07-8492Kb upper extremity w/o contrast materialGeneric External Data Provider Start: 39-41-1903Xwbjc shoulder complete minimum 2 viewsHebert Miguel MD Work Phone: Start: 65-31-5064Qcy imaging ct attenuation skull base mid-thighEsdras Cash MD Work Phone: Start: 12-15-2023 End: 39-98-8259Yvzdi count complete auto&auto difrntl wbcEsdras Cash MD Work Phone: Start: 09-50-3098Sub routine ecg w/least 12 lds w/i&r Carmen Neely MD Work Phone: Start: 48-71-4966Gevga 1996 panel - Serum or PlasmaNA Ron VO Work Phone: Start: 29-50-9231Vkc imaging ct attenuation skull base mid-thighEsdras Cash MD Work Phone: Start: 67-78-2463Ccib bld gluc mntr dev cleared fda spec home useCcf ProviderStart: 21-44-4698Aq thorax w/contrast materialG Сергей Carpenter MD Work Phone: Start: 86-99-8199Kt soft tissue neck w/o contrast materialG Сергей Carpenter MD Work Phone: Start: 89-19-4187Wf thorax w/contrast materialG Сергей Carpenter MD Work Phone: Start: 84-15-5767Lu soft tissue neck w/contrast materialKathrine Carpenter MD Work Phone: Start: 89-80-9121CNGVOVTELZ BLDG Сергей Carpenter MD Work Phone: Start: 31-84-3227GrcwtgdkngexvbjyMpte Carrie Lacy Work Phone: Start: 86-57-4444Hjm imaging ct attenuation skull base mid-thighG Сергей Carpenter MD Work Phone: Start: 62-54-2588Guja bld gluc mntr dev cleared fda spec home useCcf ProviderStart: 98-49-5873Dngig count complete auto&auto difrntl wbcMinjerome Weaver PA-C Work Phone: Start: 24-97-0391Qqpnc count complete auto&auto difrntl wbcHolly Dian SCHROEDERIMPACT RETAIL SERVICE MERCHANDISER Work Phone: Start: 54-03-1040Orp imaging ct attenuation skull base mid-thighG Сергей Carpenter MD Work Phone: Start: 33-66-9280Ierr bld gluc mntr dev cleared fda spec home useCcf ProviderStart: 93-36-0930RmdmdoobupwBa. Stepanic DO Work Phone: Start: 43-71-0714Xpmhpbvsyy funcj w/cineradiograpy/vidradiogKAMALDEEN AGOROStart: 53-68-0940Rxugbvycva exam chest single viewKAMALDEEN AGOROStart: 51-82-8888Nqxwxnmwyn exam abdomen 1 view KAMALDEEN AGOROStart: 03-01-4398SWRK GLUCOSERATUL RAYCHAUDHURIStart: 02-15-2018 MECHANICAL VENTILATIONRATUL RAYCHAUDHURIStart: 08-40-1898PXJRUUTNN TX INTERMITTENTRATUL RAYCHAUDHURIStart: 56-17-1204EUAYSPHCNU VENTILATIONRATUL RAYCHAUDHURIStart: 96-58-8684Bizeg metabolic panel calcium totalRATUL RAYCHAUDHURIStart: 77-33-4432Bvfxf count complete automatedRATUL RAYCHAUDHURI Start: 34-39-8654LCK GLUCOSE FINGERSTICKRATUL RAYCHAUDHURIStart: 16-66-7975OOBZ GLUCOSERATUL RAYCHAUDHURIStart: 94-12-9291FUMEBGIWA PATIENTRATUL RAYCHAUDHURI Start: 97-65-7994NCZQQCLXX TX INTERMITTENTRATUL RAYCHAUDHURIStart: 56-96-3874AAM GLUCOSE FINGERSTICKRATUL RAYCHAUDHURIStart: 46-82-6076WBVM GLUCOSERATUL RAYCHAUDHURIStart: 95-06-1291FFX TIDAL CO2 CONTINUOUSRATUL RAYCHAUDHURIStart: 64-10-7385DUXBRTDG OXYGEN THERAPY PROTOCOLRATUL RAYCHAUDHURIStart: 02-15-2018 NEBULIZER TX INTERMITTENTRATUL RAYCHAUDHURIStart: 67-58-8297Ilaqv of magnesium RATUL RAYCHAUDHURIStart: 22-23-4439Jtjwq of phosphorus inorganicRATUL RAYCHAUDHURIStart: 89-87-7162Axgkr metabolic panel calcium totalRATUL RAYCHAUDHURIStart: 18-98-0583Qipcp count complete automatedRATUL RAYCHAUDHURI Start: 58-59-3457LUZS GLUCOSERATUL RAYCHAUDHURIStart: 45-19-2910ZCVRYPJDU TX INTERMITTENTRATUL RAYCHAUDHURIStart: 18-93-7711OLI GLUCOSE FINGERSTICKRATUL RAYCHAUDHURIStart: 11-03-7578HIAGK CARERATUL RAYCHAUDHURIStart: 02-15-2018 Radiologic exam chest single viewRATUL RAYCHAUDHURIStart: 15-99-0208CVKX GLUCOSE RATUL RAYCHAUDHURIStart: 86-27-4647VDFBBZAMQ TX INTERMITTENTRATUL RAYCHAUDHURI Start: 93-87-8206IDM GLUCOSE FINGERSTICKRATUL RAYCHAUDHURIStart: 31-88-8912ANNN GLUCOSERATUL RAYCHAUDHURIStart: 16-35-2612NXOCFCIOD TX INTERMITTENTRATUL RAYCHAUDHURIStart: 80-42-9774UCSZMHAP PATIENTRATUL RAYCHAUDHURIStart: 02-14-2018 POCT GLUCOSERATUL RAYCHAUDHURIStart: 27-88-9072Nx retroperitoneal real time w/image limitedRATUL RAYCHAUDHURIStart: 42-99-5624HVQ TIDAL CO2 CONTINUOUSRATUL RAYCHAUDHURIStart: 94-96-0743OIBEISGL OXYGEN THERAPY PROTOCOLRATUL RAYCHAUDHURI Start: 35-00-4075UVQPWGOBF TX INTERMITTENTRATUL RAYCHAUDHURIStart: 02-14-2018 Radiologic exam chest single viewRATUL RAYCHAUDHURIStart: 24-18-2128Tozvt metabolic panel calcium totalRATUL RAYCHAUDHURIStart: 04-89-5889Mkqyd count complete automatedRATUL RAYCHAUDHURIStart: 35-60-4270LVUA GLUCOSERATUL RAYCHAUDHURIStart: 67-93-5540RKIITHSZP TX INTERMITTENTRATUL RAYCHAUDHURIStart: 85-41-2688GYRYWUMBKN NON-VIOLENT OR KGH-DYGT-APIBTJKJMIFXQCXB RAYCHAUDHURIStart: 63-89-3806WXIC GLUCOSERATUL RAYCHAUDHURIStart: 19-97-8471JTEGRQORP TX INTERMITTENTRATUL RAYCHAUDHURIStart: 53-28-0312AMCV GLUCOSERATUL RAYCHAUDHURI Start: 77-33-8350LZALDEL BLOOD #1RATUL RAYCHAUDHURIStart: 34-13-2191TSSJESKCV TX INTERMITTENTRATUL RAYCHAUDHURIStart: 80-08-9571Fg abdomen & pelvis w/o contrast materialRATUL RAYCHAUDHURIStart: 81-86-6680ZHEC GLUCOSERATUL RAYCHAUDHURIStart: 02-66-3864AFE TIDAL CO2 CONTINUOUSRATUL RAYCHAUDHURIStart: 53-35-1642RCPLZBNH OXYGEN THERAPY PROTOCOLRATUL RAYCHAUDHURIStart: 71-53-4104PEROUUMMN TX INTERMITTENTRATUL RAYCHAUDHURIStart: 69-67-2937Lvlblbiqug exam abdomen 1 view RATUL RAYCHAUDHURIStart: 97-03-7174Vuawv metabolic panel calcium totalRATUL RAYCHAUDHURIStart: 03-89-0104Thxhf count complete automatedRATUL RAYCHAUDHURI Start: 94-37-1413IKBCJ NATRIURETIC PEPTIDERATUL RAYCHAUDHURIStart: 02-13-2018 POCT GLUCOSERATUL RAYCHAUDHURIStart: 43-08-3212LUVLEOIQW TX INTERMITTENTRATUL RAYCHAUDHURIStart: 96-85-2429IFWN GLUCOSERATUL RAYCHAUDHURIStart: 02-12-2018 NEBULIZER TX INTERMITTENTRATUL RAYCHAUDHURIStart: 61-51-0701YQAY GLUCOSERATUL RAYCHAUDHURIStart: 40-26-9443GPCBMSWDD TX INTERMITTENTRATUL RAYCHAUDHURIStart: 51-44-5320EWSILUZQ BLOOD GAS, POCRATUL RAYCHAUDHURIStart: 31-73-2276OSRG GLUCOSE RATUL RAYCHAUDHURIStart: 20-17-3119GMN TIDAL CO2 CONTINUOUSRATUL RAYCHAUDHURI Start: 52-91-8656JLFNCYTU OXYGEN THERAPY PROTOCOLRATUL RAYCHAUDHURIStart: 66-58-9291VBHDIHZJA TX INTERMITTENTRATUL RAYCHAUDHURIStart: 39-13-6687Aqkmilowck exam chest single viewRATUL RAYCHAUDHURIStart: 11-01-6724ZEY DRAWRATUL RAYCHAUDHURIStart: 49-56-8277ZOTNPPLQMZYXE NURSING CARE ORDER (SPECIFY)RATUL RAYCHAUDHURIStart: 33-11-4985Azntd of magnesiumRATUL RAYCHAUDHURIStart: 49-15-6725Hjkpt of phosphorus inorganicRATUL RAYCHAUDHURIStart: 50-23-7253Lehpz metabolic panel calcium totalRATUL RAYCHAUDHURIStart: 90-47-9555Ewvlx count complete automatedRATUL RAYCHAUDHURIStart: 98-79-3601ZWKFX NATRIURETIC PEPTIDE RATUL RAYCHAUDHURIStart: 92-52-6263CUXG GLUCOSERATUL RAYCHAUDHURIStart: 76-03-9607HMYPYGUUC TX INTERMITTENTRATUL RAYCHAUDHURIStart: 51-57-3065BATCB CARE RATUL RAYCHAUDHURIStart: 61-80-5465FAVO GLUCOSERATUL RAYCHAUDHURIStart: 19-42-4079EKNJESBPT TX INTERMITTENTRATUL RAYCHAUDHURIStart: 43-77-8749ZTCJ GLUCOSERATUL RAYCHAUDHURIStart: 87-79-3908DILHNRLOB TX INTERMITTENTRATUL RAYCHAUDHURIStart: 41-85-9154WQEY GLUCOSERATUL RAYCHAUDHURIStart: 01-51-0842CHJ TIDAL CO2 CONTINUOUSRATUL RAYCHAUDHURIStart: 69-50-0796TVXCRGDZ OXYGEN THERAPY PROTOCOLRATUL RAYCHAUDHURIStart: 83-42-5090MPVIZGIUX TX INTERMITTENTRATUL RAYCHAUDHURIStart: 05-04-3794YEYYGBXFLC NON-VIOLENT OR MHV-EPRC-PYJMDAZFZUSFUUCD RAYCHAUDHURIStart: 16-41-7437Hdvvr of triglyceridesRATUL RAYCHAUDHURIStart: 06-81-4470Yjloc metabolic panel calcium totalRATUL RAYCHAUDHURIStart: 02-11-2018 Blood count complete automatedRATUL RAYCHAUDHURIStart: 15-25-3713MEFNY NATRIURETIC PEPTIDERATUL RAYCHAUDHURIStart: 68-08-8457LQRR GLUCOSERATUL RAYCHAUDHURIStart: 41-40-4043MOORBPMNK TX INTERMITTENTRATUL RAYCHAUDHURIStart: 83-03-5346CCITEXV BLOOD #1RATUL RAYCHAUDHURIStart: 95-23-3165YTXN GLUCOSERATUL RAYCHAUDHURIStart: 66-46-4068XYBBJKNBQ TX INTERMITTENTRATUL RAYCHAUDHURIStart: 70-07-3970ISETZCQLTEXMW NURSING CARE ORDER (SPECIFY)RATUL RAYCHAUDHURIStart: 54-11-5425DXVH GLUCOSERATUL RAYCHAUDHURIStart: 65-13-3045Nnutpcfqht exam abdomen 1 viewRATUL RAYCHAUDHURIStart: 85-97-5088ZCWHTRKND TX INTERMITTENTRATUL RAYCHAUDHURIStart: 99-54-9066Wmrfjlqyzeq blood/blood componentsRATUL RAYCHAUDHURIStart: 48-79-1424XPTN GLUCOSERATUL RAYCHAUDHURIStart: 81-91-4911PIB TIDAL CO2 CONTINUOUSRATUL RAYCHAUDHURIStart: 09-24-5422YSPBFMFF OXYGEN THERAPY PROTOCOLRATUL RAYCHAUDHURIStart: 26-26-7484HYBJTGUYT TX INTERMITTENTRATUL RAYCHAUDHURIStart: 88-42-6252Dpfud metabolic panel calcium totalRATUL RAYCHAUDHURIStart: 88-94-1910VYXIL NATRIURETIC PEPTIDERATUL RAYCHAUDHURIStart: 78-61-5668YYKJJAVP SPECIMENRATUL RAYCHAUDHURIStart: 85-10-9024WDXYTWDX RT PROTOCOLRATUL RAYCHAUDHURIStart: 34-81-4087Isthd count complete automatedRATUL RAYCHAUDHURIStart: 43-81-8779Ctsj tst prsmv instrmnt chem analyzers pr dateRATUL RAYCHAUDHURIStart: 70-92-4351TRGN GLUCOSERATUL RAYCHAUDHURIStart: 02-10-2018 NEBULIZER TX INTERMITTENTRATUL RAYCHAUDHURIStart: 08-05-4009UUTQA CARERATUL RAYCHAUDHURIStart: 62-34-1344WOBQ GLUCOSERATUL RAYCHAUDHURIStart: 02-09-2018 NEBULIZER TX INTERMITTENTRATUL RAYCHAUDHURIStart: 20-42-1264JHC 12-LEADRATUL RAYCHAUDHURIStart: 65-07-5797QKN REPORTRATUL RAYCHAUDHURIStart: 23-24-8921OLNZ GLUCOSERATUL RAYCHAUDHURIStart: 94-25-1542HDVPEBQBZO NON-VIOLENT OR SCP-FLYL-PGRWYLUXRCBUHRWZ RAYCHAUDHURIStart: 56-66-5780KJWBKOTOK TX INTERMITTENT RATUL RAYCHAUDHURIStart: 92-94-8589GQIRVDAR BLOOD GAS, POCRATUL RAYCHAUDHURI Start: 48-05-2920YVWH GLUCOSERATUL RAYCHAUDHURIStart: 46-23-7082DGJ TIDAL CO2 CONTINUOUSRATUL RAYCHAUDHURIStart: 85-19-2775BJODCBZI OXYGEN THERAPY PROTOCOL RATUL RAYCHAUDHURIStart: 58-18-3552LWQOFRIVZ TX INTERMITTENTRATUL RAYCHAUDHURI Start: 65-71-9621Jirxy metabolic panel calcium totalRATUL RAYCHAUDHURIStart: 90-11-6331Epyia count complete automatedRATUL RAYCHAUDHURIStart: 54-26-0459FLNUV NATRIURETIC PEPTIDERATUL RAYCHAUDHURIStart: 68-17-1032HLXG GLUCOSERATUL RAYCHAUDHURIStart: 03-70-5738NJKOQLGNE TX INTERMITTENTRATUL RAYCHAUDHURIStart: 65-44-7111ADXQ GLUCOSERATUL RAYCHAUDHURIStart: 21-66-8129ACLLPYPVT TX INTERMITTENTRATUL RAYCHAUDHURIStart: 44-06-5177YOZTX CARERATUL RAYCHAUDHURI Start: 49-57-1829CVCY GLUCOSERATUL RAYCHAUDHURIStart: 68-76-9386QKQBIUOWU TX INTERMITTENTRATUL RAYCHAUDHURIStart: 79-84-9327Gnlm [facility] w/wom-mode compl spec&colr dRATUL RAYCHAUDHURIStart: 38-47-7725LDWJ GLUCOSERATUL RAYCHAUDHURIStart: 14-14-7564MVK TIDAL CO2 CONTINUOUSRATUL RAYCHAUDHURIStart: 32-88-4853DLOOGMQP OXYGEN THERAPY PROTOCOLRATUL RAYCHAUDHURIStart: 02-08-2018 NEBULIZER TX INTERMITTENTRATUL RAYCHAUDHURIStart: 90-39-2753MISYRCWXGG NON- VIOLENT OR PKN-ABNG-YFKKQOUCPCBPZYJU RAYCHAUDHURIStart: 93-47-1590Ffgfc of magnesiumRATUL RAYCHAUDHURIStart: 65-77-4381Djipm of phosphorus inorganicRATUL RAYCHAUDHURIStart: 54-65-0106Hghrg metabolic panel calcium totalRATUL RAYCHAUDHURIStart: 74-34-7879Uwddt count complete automatedRATUL RAYCHAUDHURI Start: 57-51-4410YSUNC NATRIURETIC PEPTIDERATUL RAYCHAUDHURIStart: 02-08-2018 ARTERIAL BLOOD GAS, POCRATUL RAYCHAUDHURIStart: 84-71-1718GMRI GLUCOSERATUL RAYCHAUDHURIStart: 42-32-0537BULBFOFRQ TX INTERMITTENTRATUL RAYCHAUDHURIStart: 77-65-5723UYICR CARERATUL RAYCHAUDHURIStart: 07-17-3015UGAS GLUCOSERATUL RAYCHAUDHURIStart: 95-86-7336XSHOFZBZL TX INTERMITTENTRATUL RAYCHAUDHURIStart: 68-29-3114EWQA GLUCOSERATUL RAYCHAUDHURIStart: 92-98-3718DEFIQIROQ TX INTERMITTENTRATUL RAYCHAUDHURIStart: 60-95-9502Pxfskbitaj exam chest single view RATUL RAYCHAUDHURIStart: 41-69-5322TFEM GLUCOSERATUL RAYCHAUDHURIStart: 39-06-7654IZJ TIDAL CO2 CONTINUOUSRATUL RAYCHAUDHURIStart: 96-30-4283VDXZQVEV OXYGEN THERAPY PROTOCOLRATUL RAYCHAUDHURIStart: 66-80-0902FINLWSTWU TX INTERMITTENTRATUL RAYCHAUDHURIStart: 43-75-0011Tvqcx metabolic panel calcium totalRATUL RAYCHAUDHURIStart: 70-04-1749Fshgh count complete automatedRATUL RAYCHAUDHURIStart: 12-29-5650QCBKI NATRIURETIC PEPTIDERATUL RAYCHAUDHURIStart: 04-52-1583ALHEMWSA BLOOD GAS, POCRATUL RAYCHAUDHURIStart: 69-69-7706MMGL GLUCOSE RATUL RAYCHAUDHURIStart: 73-30-7336YYLOVHLRM TX INTERMITTENTRATUL RAYCHAUDHURI Start: 85-89-8989XUKZTIJNPM AND HEMATOCRIT, BLOODRATUL RAYCHAUDHURIStart: 10-19-1342Tjdtz of lactateRATUL RAYCHAUDHURIStart: 75-21-3090KETL GLUCOSERATUL RAYCHAUDHURIStart: 35-83-4011AMZMKYZUI TX INTERMITTENTRATUL RAYCHAUDHURIStart: 28-82-3228RPMI GLUCOSERATUL RAYCHAUDHURIStart: 80-15-3490JPDASIIKO TX INTERMITTENTRATUL RAYCHAUDHURIStart: 21-26-4076NNSKXXFSX RED BLOOD CELLSRATUL RAYCHAUDHURIStart: 77-28-0988Tdqjo of lactateRATUL RAYCHAUDHURIStart: 02-06-2018 POCT GLUCOSERATUL RAYCHAUDHURIStart: 68-97-6437AAF TIDAL CO2 CONTINUOUSRATUL RAYCHAUDHURIStart: 83-94-0556MAOXHYJO OXYGEN THERAPY PROTOCOLRATUL RAYCHAUDHURI Start: 92-15-3499ZTTZXISGE TX INTERMITTENTRATUL RAYCHAUDHURIStart: 02-06-2018 Assay of amylaseRATUL [facility]UDHURIStart: 26-27-8198Edxpu of lipaseRATUL RAYCHAUDHURIStart: 96-32-5711Tcqli metabolic panel calcium totalRATUL [facility]ENTERUDRIStart: 64-95-6877Jomwd count complete automatedRATUL [facility]HURI Start: 97-89-1127RKVRF NATRIURETIC PEPTIDERATUL [facility]ENTERUDHURIStart: 51-76-2614IB RATUL [facility]UDHURIStart: 18-89-0862DFQHZMCOE, SERUMRATUL [facility]ENTERUDRIStart: 76-17-7529QBLDZQPA BLOOD GAS, POCRAT [facility]ENTERUDRIStart: 74-65-1341DHTD GLUCOSE RATUL [facility]ENTERUDHURIStart: 39-67-2997BQHAIETCO TX INTERMITTENTRATUL [facility]HURI Start: 11-30-1463MBFSEIWR RT PROTOCOLRATUL [facility]ENTERUDHURIStart: 02-06-2018 NEBULIZER TX INTERMITTENTRATUL [facility]ENTERUDHURIStart: 57-79-7909XWWX GLUCOSERATUL [facility]UDHURIStart: 31-44-6870KHFE GLUCOSERATUL [facility]UDHURIStart: 02-05-2018 Basic metabolic panel calcium totalRATUL [facility]ENTERUDRIStart: 73-77-2879EPMADFSVGA AND HEMATOCRIT, BLOODRAT [facility]ENTERUDRIStart: 07-74-6009MSHLCPQEZE NON-VIOLENT OR MZR-KNUV-LSTYEEJLNSIBTYEY [facility]ENTERUDHURIStart: 21-09-2962YNACBNCYP RED BLOOD CELLSRATUL RAYCHAUDHURIStart: 21-69-9570DOL, RAPID CITRATEDRATUL [facility]HURI Start: 41-74-0439VCUFLSXKG RED BLOOD CELLSRATUL [facility]UDHURIStart: 02-05-2018 POCT GLUCOSERATUL RAYCHAUDHURIStart: 50-34-0780TYQ TIDAL CO2 CONTINUOUSRATUL [facility]ENTERUDHURIStart: 56-28-6612BTVXWEEN OXYGEN THERAPY PROTOCOLRATUL [facility]HURI Start: 11-91-4089Uuziw bld/component collj storage predepositedRATUL RAYCHAUDHURIStart: 20-86-5628DJLO AND SCREENRATUL RAYCHAUDHURIStart: 02-05-2018 PREPARE RBC (CROSSMATCH)RATUL [facility]ENTERUDHURIStart: 40-03-6954Acyze metabolic panel calcium totalRATUL [facility]UDHURIStart: 98-07-5122Wddgj count complete automated RATUL RAYCHAUDHURIStart: 63-78-5098TGUX GLUCOSERATUL [facility]UDHURIStart: 98-56-7527BIUMQHET BLOOD GAS, POCRATUL RAYCHAUDHURIStart: 44-82-8675Xmbceweymw exam chest single viewRATUL [facility]ENTERUDHURIStart: 92-57-1882XAR BLOOD GASRATUL [facility]ENTERUDHURIStart: 79-66-7314AIN TIDAL CO2 CONTINUOUSRATUL [facility]ENTERUDHURIStart: 55-32-2529XEQWLHGH BLOOD GAS, POCRATUL RAYCHAUDHURIStart: 67-69-5807HCDZ GLUCOSE RATUL [facility]UDHURIStart: 94-73-8303KSFMS CARERATUL [facility]ENTERUDHURIStart: 02-05-2018 Basic metabolic panel calcium totalRATUL [facility]HURIStart: 18-35-1801PKFF GLUCOSERATUL [facility]UDHURIStart: 20-07-5541XHCJSNPDEC, URINERATUL RAYCHAUDHURI Start: 98-87-8652Sgdkr metabolic panel calcium totalRATUL RAYCHAUDHURIStart: 62-34-3121XIEOITBNNBPCQGB RAYCHAUDHURIStart: 39-84-1550PXHZ GLUCOSERATUL RAYCHAUDHURIStart: 94-16-0535AIAFSYYAAZMB RAYCHAUDHURIStart: 68-88-8928Wjema metabolic panel calcium totalRATUL RAYCHAUDHURIStart: 15-40-1847Wxnoteq function panelRATUL RAYCHAUDRIStart: 82-46-7123Yfjtijjzlc [Mass/volume] in UrineRATUL [facility]ENTERUDHURIStart: 33-33-3575SRDJQG, URINE, RANDOMRATUL RAYCHAUDHURIStart: 47-19-1136QQASJLFKEM NON-VIOLENT OR QBW-VNKC-HEGTMGAGTESIUTPZ RAYCHAUDHURIStart: 33-47-8235Vvghk of lactateRATUL RAYCHAUDHURIStart: 19-29-4472NSFS GLUCOSERATUL RAYCHAUDHURIStart: 24-25-4294IIJKTYZV OXYGEN THERAPY PROTOCOLRATUL RAYCHAUDHURI Start: 71-55-9676JQFIANMJ CONSULT FOR RENAL DOSINGRATUL RAYCHAUDHURIStart: 90-30-8453Cjmpm metabolic panel calcium totalRATUL RAYCHAUDHURIStart: 02-04-2018 Blood count complete automatedRATUL RAYCHAUDHURIStart: 06-76-6398CFLEYUWX BLOOD GAS, POCRATUL RAYCHAUDHURIStart: 18-65-8508FJI DRAWRATUL RAYCHAUDHURIStart: 29-52-6661ZLQR GLUCOSERATUL RAYCHAUDHURIStart: 88-58-6001CGTR GLUCOSERATUL RAYCHAUDHURIStart: 50-63-6366YNRS GLUCOSERATUL RAYCHAUDHURIStart: 02-03-2018 Assay of magnesiumRATUL RAYCHAUDHURIStart: 22-32-5873Lnutc of phosphorus inorganicRATUL RAYCHAUDHURIStart: 77-40-8442Szmjcu serum plasma or whole blood RATUL RAYCHAUDHURIStart: 57-75-8363OMUREFAZEX NON-VIOLENT OR NGQ-WVNE-KJHXOFCNLNLFHETC RAYCHAUDHURIStart: 78-45-8581FZAD GLUCOSERATUL RAYCHAUDHURIStart: 10-96-5563KDGJIHRP OXYGEN THERAPY PROTOCOLRATUL RAYCHAUDHURI Start: 77-01-7285Qdmfi of magnesiumRATUL RAYCHAUDHURIStart: 06-18-3482Jhmaz of phosphorus inorganicRATUL RAYCHAUDHURIStart: 32-35-9000Uesxh metabolic panel calcium totalRATUL RAYCHAUDHURIStart: 30-80-8462Rhrgj count complete automated RATUL RAYCHAUDHURIStart: 35-13-8981PPRD GLUCOSERATUL RAYCHAUDHURIStart: 42-41-3877Wljsf of lactateRATUL RAYCHAUDHURIStart: 23-40-5462Pwtpr metabolic panel calcium totalRATUL RAYCHAUDHURIStart: 85-46-7350Kuime count complete automatedRATUL RAYCHAUDHURIStart: 02-65-9998Izpsncsvre exam chest single view RATUL RAYCHAUDHURIStart: 99-21-1882XGJFUTQW BLOOD GAS, POCRATUL RAYCHAUDHURI Start: 54-62-1591ZIGEDROQUYRS PANEL, POCRATUL RAYCHAUDHURIStart: 35-11-1517OZIA GLUCOSERATUL RAYCHAUDHURIStart: 68-94-9534ESG BLOOD GASRATUL RAYCHAUDHURIStart: 32-42-7817Eksjkb serum plasma or whole bloodRATUL RAYCHAUDHURIStart: 02-03-2018 WOUND CARERATUL RAYCHAUDHURIStart: 17-66-0826VWKUTJEP TO DOSE VANCOMYCINRATUL RAYCHAUDHURIStart: 88-37-7185JNKD GLUCOSERATUL RAYCHAUDHURIStart: 36-12-0104UZQT GLUCOSERATUL RAYCHAUDHURIStart: 33-39-9339Wtsygy serum plasma or whole blood RATUL RAYCHAUDHURIStart: 77-27-7530Eijmss serum plasma or whole bloodRATUL RAYCHAUDHURIStart: 87-73-6318Rcbpicigtw [Mass/volume] in UrineRATUL RAYCHAUDHURI Start: 99-26-5146XYIZQAAVWL, URINERATUL RAYCHAUDHURIStart: 85-74-2944UFEGGJ, URINE, RANDOMRATUL RAYCHAUDHURIStart: 64-29-8138ZM CONSULT TO NEPHROLOGYRATUL RAYCHAUDHURIStart: 04-55-5321GYWT GLUCOSERATUL RAYCHAUDHURIStart: 02-02-2018 INITIATE OXYGEN THERAPY PROTOCOLRATUL RAYCHAUDHURIStart: 44-11-1999FYQOIRHCZF NON-VIOLENT OR DKS-IAHL-KEPTQQSPYMUIPBKK RAYCHAUDHURIStart: 11-45-0735Qxvxk metabolic panel calcium totalRATUL RAYCHAUDHURIStart: 70-43-0320Iaqaz count complete automatedRATUL RAYCHAUDHURIStart: 13-66-3437FRWOQBZ, IONIZEDRATUL RAYCHAUDHURIStart: 69-98-5874XAASCGBXVGDGQRW RAYCHAUDHURIStart: 62-10-2627FYJS GLUCOSERATUL RAYCHAUDHURIStart: 47-00-8552Fiqhqb serum plasma or whole blood RATUL RAYCHAUDHURIStart: 49-76-2565FNJD GLUCOSERATUL RAYCHAUDHURIStart: 96-09-2241Cghecd serum plasma or whole bloodRATUL RAYCHAUDHURIStart: 02-01-2018 POCT GLUCOSERATUL RAYCHAUDHURIStart: 98-90-9580AUWFUDZV BLOOD GAS, POCRATUL RAYCHAUDHURIStart: 65-25-4031RSA GLUCOSE FINGERSTICKRATUL RAYCHAUDHURIStart: 95-46-5688Wkxvlqmufv exam chest single viewRATUL RAYCHAUDHURIStart: 02-01-2018 POC BLOOD GASRATUL RAYCHAUDHURIStart: 04-56-2457IKETCUCH PATIENTRATUL RAYCHAUDHURIStart: 61-10-6353LQIL CARERATUL RAYCHAUDHURIStart: 06-96-1292Rsuzj metabolic panel calcium totalRATUL RAYCHAUDHURIStart: 23-28-1808Ojkca count complete auto&auto difrntl wbcRATUL RAYCHAUDHURIStart: 93-04-6421HKRORFZNAL NON- VIOLENT OR JWS-QEUR-RGVVRTCSKRLETLXB RAYCHAUDHURIStart: 88-17-1791JBLFBTZ COMMUNICATIONRATUL RAYCHAUDHURIStart: 34-85-8897HYCLKX REQUESTRATUL RAYCHAUDHURI Start: 99-45-3283EUGUN CARERATUL RAYCHAUDHURIStart: 27-50-0013AAITJGWF PATIENT RATUL RAYCHAUDHURIStart: 84-05-7495AROM GLUCOSERATUL RAYCHAUDHURIStart: 48-27-7362CHYOZJAF OXYGEN THERAPY PROTOCOLRATUL RAYCHAUDHURIStart: 02-01-2018 POCT GLUCOSERATUL RAYCHAUDHURIStart: 42-70-9054THQ GLUCOSE FINGERSTICKRATUL RAYCHAUDHURIStart: 98-17-6519SDSS GLUCOSERATUL [facility]UDHURIStart: 24-13-9138ZPW GLUCOSE FINGERSTICKRATUL [facility]ENTERUDRIStart: 57-38-9245GYGM GLUCOSERATUL [facility]RIStart: 75-64-5690BPC GLUCOSE FINGERSTICKRATUL [facility]UDRIStart: 89-51-2874HMPH GLUCOSERAT [facility]RIStart: 10-39-1060JWSLKIMI OXYGEN THERAPY PROTOCOLRATUL [facility]RIStart: 54-94-4307Ehdgh of magnesiumRATUL [facility] Start: 96-42-4208Mrxkk of phosphorus inorganicRAT [facility]RIStart: 87-09-9319Bomxq metabolic panel calcium totalRAT [facility]RIStart: 01-31-2018 Blood count complete auto&auto difrntl wbcRATEVERGREENHEALTHRIStart: 01-31-2018 RESTRAINTS NON-VIOLENT OR FGA-STTC-MXNCXMNRVJPSQEPJ [facility]ENTERUDRIStart: 74-87-6311UNV GLUCOSE FINGERSTICKRAT [facility]ENTERUDRIStart: 73-48-9032BZFT GLUCOSE RAT [facility]UDRIStart: 15-28-5123Zlbza dip stick/tablet reagent auto microscopyRAT [facility]ENTER[facility]RIStart: 83-60-4639XKW GLUCOSE FINGERSTICKRAT [facility]ENTERUDRIStart: 04-58-4664BNVF GLUCOSERAT [facility]UDRIStart: 77-21-9691HTMW GLUCOSERATUL [facility]ENTERUDRIStart: 30-67-4732HOTJRYNFR AND AEROBIC CULTURERAT [facility]ENTERUDRIStart: 88-15-3012CMV GLUCOSE FINGERSTICKRAT [facility]ENTERUDRIStart: 20-59-0860Jbjariuade exam chest single viewRAT [facility]ENTERUDRIStart: 01-30-2018 POCT GLUCOSERATUL [facility]ENTERUDRIStart: 60-47-2099MXBDMYVK OXYGEN THERAPY PROTOCOL RAT [facility]ENTERUDRIStart: 12-46-2392YMZOFSW BLOOD #1RATUL [facility]ENTERUDRIStart: 02-40-0198Oxjrq of magnesiumRATUL RAYCHAUDHURIStart: 30-97-1405Sjjhz of phosphorus inorganicRATUL RAYCHAUDHURIStart: 45-95-3871Rvmth count complete auto&auto difrntl wbcRATUL RAYCHAUDRIStart: 55-77-2448Tjltuphnkhvil metabolic panelRATUL RAYCHAUDHURIStart: 19-93-6841OIZ GLUCOSE FINGERSTICKRATUL RAYCHAUDHURIStart: 54-20-1660NPSP GLUCOSERATUL RAYCHAUDHURIStart: 07-27-5043HYI GLUCOSE FINGERSTICKRATUL RAYCHAUDHURIStart: 75-18-3874UIFDE WEIGHTSRATUL RAYCHAUDHURIStart: 74-03-0539HZAH GLUCOSERATUL RAYCHAUDHURIStart: 01-29-2018 Assay of triglyceridesRATUL [facility]ENTERUDHURIStart: 01-10-9164Zl abdomen & pelvis w/contrast materialRATUL RAYCHAUDHURIStart: 19-05-4819UNYQ GLUCOSERATUL RAYCHAUDHURIStart: 39-88-3717VIYGP CARERATUL RAYCHAUDHURIStart: 01-29-2018 MISCELLANEOUS NURSING CARE ORDER (SPECIFY)RATUL RAYCHAUDHURIStart: 01-29-2018 NURSING COMMUNICATIONRATUL [facility]RIStart: 79-56-4022VVQWCAWGNR NUTRITION INDICATIONSRATUL RAYCHAUDHURIStart: 71-87-7719QASFJTWJUP NUTRITION INFUSION CHECKRATUL [facility]ENTERUDHURIStart: 01-17-1603XC CONSULT TO DIETITIANRATUL RAYCHAUDHURIStart: 90-42-0607UIGNPQIXLG NON-VIOLENT OR VTU-AYZT-ZASKUJRCKTDOUDPE RAYCHAUDHURIStart: 26-54-9507QUVJVIKNFVMM RAYCHAUDHURIStart: 80-72-5361Opgyg of triglyceridesRATUL RAYCHAUDHURIStart: 81-58-2537VE CONSULT TO DIETITIANRATUL RAYCHAUDHURIStart: 73-31-8890PKGVXJ PHYSICIAN (SPECIFY)RATUL RAYCHAUDHURIStart: 94-48-4281FLHQXIP COMMUNICATIONRATUL RAYCHAUDHURIStart: 51-72-9745ZIUHSEWZXX NUTRITION INDICATIONSRATUL [facility]ENTERUDRIStart: 58-39-7998GFUL GLUCOSERATUL [facility]ENTERUDRIStart: 35-50-5995QIWNDWRJ OXYGEN THERAPY PROTOCOLRATUL [facility]RI Start: 74-00-0841Xapvhsauib exam chest single viewRATUL RAYCHAUDRIStart: 57-14-8750Tcxzc metabolic panel calcium totalRATUL [facility]UDRIStart: 01-29-2018 Blood count complete auto&auto difrntl wbcRATUL [facility]UDRIStart: 01-29-2018 BRAIN NATRIURETIC PEPTIDERATUL [facility]ENTERUDRIStart: 17-80-0851Labky metabolic panel calcium totalRAT [facility]ENTERUDRIStart: 87-87-7605MOENSPU BLOOD #1RATUL [facility]ENTERUDRIStart: 69-91-0174SNISJAUX PATIENTRATUL [facility]ENTERUDRIStart: 01-28-2018 INSERT PICC LINERATUL [facility]Start: 21-43-2873YRSUMYBMXVFVT NURSING CARE ORDER (SPECIFY)RATUL [facility]ENTERUDRIStart: 14-78-5298JI CONSULT TO INFECTIOUS DISEASESRATUL [facility]ENTERUDGIL[facility] MEDICAL CENTERtart: 42-13-7676HFQDBDAF OXYGEN THERAPY PROTOCOLRAT [facility]ENTERUDRIStart: 41-47-0715UEPNAJX COMMUNICATIONRATUL [facility]ENTERUDRIStart: 40-95-6850Kgzsf of magnesiumRATUL [facility]ENTERUDRIStart: 75-65-3975Lolte of phosphorus inorganicRATUL [facility]ENTERUDRIStart: 00-68-5725Xebie metabolic panel calcium totalRATUL [facility]ENTERUDRIStart: 65-00-0292Qttju count complete auto&auto difrntl wbcRATUL [facility]ENTERUDRIStart: 67-97-1841K-reactive proteinRATUL [facility]ENTERUDRIStart: 56-06-7085Nqdbwyg function panelRATUL [facility]ENTERUDRIStart: 73-86-0358ZIUJFSTNRVGKQPG [facility]ENTERUDRIStart: 47-97-6524FHUEPYGJZFUVYPMO [facility]ENTERUDRIStart: 10-43-7380GCJ WITH REFLEXRATUL RAYCHAUDRIStart: 01-28-2018 Ct abdomen & pelvis w/contrast materialRATUL RAYCHAUDHURIStart: 01-27-2018 RESTRAINTS NON-VIOLENT OR KVV-HGMY-HYPIGTKBPTQMNXOT RAYCHAUDHURIStart: 12-18-4208Ielwygcugc exam abdomen 1 viewRATUL RAYCHAUDHURIStart: 01-27-2018 Radiologic exam abdomen 1 viewRATUL RAYCHAUDHURIStart: 18-29-4827Yqfhs spine lumbosacral 2/3 viewsRATUL RAYCHAUDHURIStart: 86-95-9870Ohtjbdfaqy exam chest single viewRATUL RAYCHAUDHURIStart: 86-88-9418FTXZWBFF OXYGEN THERAPY PROTOCOL RATUL RAYCHAUDHURIStart: 56-88-4132Olqbp of magnesiumRATUL RAYCHAUDHURIStart: 42-22-4454Ekxqd of phosphorus inorganicRATUL RAYCHAUDHURIStart: 52-26-2629Vbtqa metabolic panel calcium totalRATUL RAYCHAUDHURIStart: 56-42-8050Wzhol count complete auto&auto difrntl wbcRATUL RAYCHAUDHURIStart: 01-35-3682ILABERPFHJ, RANDOMRATUL RAYCHAUDHURIStart: 42-40-0313CZBWRKL, IONIZEDRATUL [facility]AYCH[facility]URI Start: 71-33-9343Krgmfesgj serum plasma/whole bloodRATUL RAYCHAUDHURIStart: 75-41-0530Xxktbwecu serum plasma/whole bloodRATUL RAYCHAUDHURIStart: 01-26-2018 VANCOMYCIN, TROUGHRATUL RAYCHAUDHURIStart: 07-39-0898LK CONSULT TO IV TEAMRATUL RAYCHAUDHURIStart: 83-79-9029AHCVFCTI OXYGEN THERAPY PROTOCOLRATUL RAYCH[facility]URI Start: 27-24-9359Wahiypptbi exam abdomen 1 viewRATUL RAYCHAUDHURIStart: 50-93-4049Zguhmxwauh exam chest single viewRATUL RAYCHAUDHURIStart: 01-26-2018 Assay of magnesiumRATUL RAYCHAUDHURIStart: 19-93-6031Tozgd of phosphorus inorganicRATUL RAYCHAUDHURIStart: 09-98-2551Yssun metabolic panel calcium total RATUL RAYCHAUDHURIStart: 31-25-3003Pkxti count complete auto&auto difrntl wbc RATUL RAYCHAUDHURIStart: 41-78-9790JBJKJ NATRIURETIC PEPTIDERATUL RAYCHAUDHURI Start: 81-04-4471IJUCXNP, IONIZEDRATUL RAYCHAUDHURIStart: 26-23-7737Urnlookdx serum plasma/whole bloodRATUL RAYCHAUDHURIStart: 98-59-8872LSKOXSRZVL NON- VIOLENT OR CPI-CRZK-TBSEGUCLUDKHRMGI RAYCHAUDHURIStart: 17-73-6941Rqrpifgre serum plasma/whole bloodRATUL RAYCHAUDHURIStart: 73-74-4287Ko abdomen & pelvis w/contrast materialRATUL RAYCHAUDHURIStart: 54-39-1599ZPMZYOSV PATIENTRATUL RAYCHAUDHURIStart: 22-87-0800MCV 12-LEADRATUL RAYCHAUDHURIStart: 44-15-0480EEU REPORTRATUL RAYCHAUDHURIStart: 06-88-8351Jixjbkuqak exam chest single viewRATUL RAYCHAUDRIStart: 79-31-3761Irxrd count complete auto&auto difrntl wbcRATUL RAYCHAUDRIStart: 16-87-7964TLFYKZCRLZ, TROUGHRATUL RAYCHAUDHURIStart: 45-14-3155CLUTNJLY OXYGEN THERAPY PROTOCOLRATUL RAYCHAUDHURIStart: 01-25-2018 Assay of magnesiumRATUL RAYCHAUDHURIStart: 54-97-6078Vsbon of phosphorus inorganicRATUL RAYCHAUDRIStart: 10-16-9998Aiwrn metabolic panel calcium total RATUL RAYCHAUDHURIStart: 98-13-3961LXMFTOB, IONIZEDRATUL RAYCHAUDHURIStart: 17-65-4123Eektsnnbj serum plasma/whole bloodRATUL RAYCHAUDHURIStart: 01-24-2018 RESTRAINTS NON-VIOLENT OR GAW-TUEK-QHRXYWYVRRTVRBHD RAYCHAUDHURIStart: 20-74-7616Iqrlbqvcr serum plasma/whole bloodRATUL RAYCHAUDHURIStart: 01-24-2018 INITIATE OXYGEN THERAPY PROTOCOLRATUL RAYCHAUDHURIStart: 04-92-6654Plibr of magnesiumRATUL RAYCHAUDHURIStart: 30-72-9076Lqmim of phosphorus inorganicRATUL RAYCHAUDHURIStart: 90-08-5821Sfyzi metabolic panel calcium totalRATUL RAYCHAUDHURIStart: 92-67-5190Hrefs count complete automatedRATUL RAYCHAUDHURI Start: 45-24-9833AZURWEZ, IONIZEDRATUL RAYCHAUDHURIStart: 87-51-0890Imfzxkoosc exam chest single viewRATUL RAYCHAUDHURIStart: 51-07-1678NGQIGVVZNF, TROUGHRATUL RAYCHAUDHURIStart: 31-96-6706Pncusfwlf serum plasma/whole bloodRATUL RAYCHAUDHURIStart: 07-89-6020MRMEXTHI BLOOD GAS, POCRATUL RAYCHAUDHURIStart: 69-33-9325Mrizq gases any combination ph pco2 po2 co2 upg6VRIMW RAYCHAUDHURI Start: 45-22-5642YYKDWDE, IONIZEDRATUL RAYCHAUDHURIStart: 46-55-7717Iwrgy of magnesiumRATUL RAYCHAUDHURIStart: 86-94-9208OPGQJJU, IONIZEDRATUL [facility]AYCH[facility]URI Start: 29-42-0545CPD 12-LEADRATUL RAYCHAUDHURIStart: 87-93-2878JCH REPORTRATUL RAYCHAUDHURIStart: 81-24-3204IZMQIXAI BLOOD GAS, POCRATUL RAYCHAUDHURIStart: 15-07-7730WKK 12-LEADRATUL RAYCHAUDHURIStart: 30-78-0247UHQ REPORTRATUL RAYCHAUDHURIStart: 38-74-1070Mqcpazznjp exam chest single viewRATUL RAYCHAUDHURI Start: 04-12-6672HDPXWVSF OXYGEN THERAPY PROTOCOLRATUL RAYCHAUDHURIStart: 12-30-3273Hdgba gases any combination ph pco2 po2 co2 dcd5MZUPJ RAYCHAUDHURI Start: 54-40-5057Emcud of magnesiumRATUL RAYCHAUDHURIStart: 64-34-8421Vhpxf metabolic panel calcium totalRATUL RAYCHAUDHURIStart: 24-26-1356Fvbfk count complete automatedRATUL RAYCHAUDHURIStart: 02-16-9965BERHA NATRIURETIC PEPTIDE RATPEDRO [facility]ENTERUDRIStart: 79-15-7785Micxngwrtgm platelet assayRAT [facility]RI Start: 77-97-2667SLWSLJFMJW, TROUGHRAT [facility]ENTERUDRIStart: 52-47-3800QCYUHLA D 25 HYDROXYRAT [facility]ENTERUDRIStart: 46-30-7884Tpasq gases any combination ph pco2 po2 co2 chl0GOGHH [facility]ENTERUDRIStart: 00-25-6316Wdsgzvchijkwb metabolic panel RATPEDRO [facility]ENTERUDRIStart: 38-36-0135Zslvm count complete auto&auto difrntl wbc RATPEDRO [facility]ENTERUDRIStart: 58-48-8299KBYGDAXW BLOOD GAS, POCRAWAKEMED CARY HOSPITAL [facility]ENTERUDHURI Start: 15-50-0506Ysysi gases any combination ph pco2 po2 co2 bvg6LBSOP [facility]ENTERUDRIStart: 92-04-3989JXI 12-LEADRAT [facility]ENTERUDRIStart: 31-86-2351OHN REPORTRAT [facility]ENTERUDRIStart: 38-45-2503AMOYJAWA BLOOD GAS, POCRAT RAYCHAUDHURIStart: 82-83-0527Ljqqg gases any combination ph pco2 po[address] [facility]ENTERUDRIStart: 78-80-0210YY [facility] Start: 42-91-4424LUDBVYTE TO DOSE VANCOMYCINRAWAKEMED CARY HOSPITAL [facility]ENTERUDRIStart: 01-22-2018 Echo tthrc r-t 2d w/wom-mode compl spec&colr dRAT [facility]ENTERUDRIStart: 06-06-2645OKDFDFLI BLOOD GAS, POCRAT RAYCHAUDHURIStart: 99-25-5748WPNQFPGU OXYGEN THERAPY PROTOCOLRAT [facility]ENTERUDRIStart: 13-14-9748IDACWXCO BLOOD GAS, POCRAT RAYCHAUDHURIStart: 97-91-2120Enufu gases any combination ph pco2 po2 co2 vpk0IVBBX [facility]ENTERUDRIStart: 26-79-1754Hkuminyghn exam chest single view RAT [facility]ENTERUDRIStart: 86-40-6645Udqne of magnesiumRAT [facility]ENTERWILLI[facility]PITALRIStart: 89-06-9014Plcfm of phosphorus inorganicRATUL [facility]ILDRENRIStart: 23-15-7922Vpzyx metabolic panel calcium totalRATUL [facility]ILDRENRIStart: 05-91-1477Eaplm count complete automatedRATUL [facility]PITALRIStart: 61-14-5392FMYLW NATRIURETIC PEPTIDE RATEVERGREENHEALTHRIStart: 82-14-8649Eqlwauihvze platelet assayRATUL [facility] Start: 17-16-2132ZEUVMCAD OXYGEN THERAPY PROTOCOLRATUL [facility]ILDRENRIStart: 34-26-2451ICPMVTO DEHYDROGENASE, BODY FLUIDRATUL [facility]ENTERUDRIStart: 01-21-2018 PROTEIN, BODY FLUIDRATEVERGREENHEALTHRIStart: 02-37-1747Thcmvfshov exam chest single viewRATUL [facility]DRENRIStart: 34-21-4450LVOSOOS DEHYDROGENASERATEVERGREENHEALTHRIStart: 23-95-9753Fjxtckz xcpt refractometry serum plasma/whl bld [facility]ALTHRIStart: 21-88-6674Mhyvfmgicpvrq needle/cath pleura w/imaging [facility]GREENHEALTHRIStart: 41-59-3207BSWCN SIGNSRATEVERGREENHEALTHRIStart: 65-29-8557BRLBQQHMKRBGR NURSING CARE ORDER (SPECIFY)RATEVERGREENHEALTHRIStart: 28-27-8013NCBZBXU COMMUNICATIONRATUL [facility] CHILDRENRIStart: 06-54-4682CZYF PATIENT RATUL [facility]PITALRIStart: 45-50-1161XNLCIBW HEELS OFF OF BEDRATHEALTHSOU[facility] Start: 97-74-8800HQUUZ NATRIURETIC PEPTIDERATUL [facility]ILDRENRIStart: 01-21-2018 Creatinine [Mass/volume] in UrineRATUL [facility]DRENRIStart: 49-52-0775OMGPGI, URINE, RANDOMRATEVERGREENHEALTHRIStart: 54-20-9199Wiubkwjrjk exam chest single viewRATUL [facility]ITALRIStart: 40-11-6802Hzvsmorqom exam abdomen 1 viewRATUL [facility]ENTERUDRIStart: 99-20-7377DUMCENTC PATIENTRATUL [facility]ENTERUDRIStart: 01-21-2018 Assay of lactateRATUL RAYCHAUDHURIStart: 59-28-4183Gdwgx of magnesiumRATUL RAYCHAUDHURIStart: 56-76-5836Qpfsd of phosphorus inorganicRATUL [facility] Start: 11-41-1235Urfba metabolic panel calcium totalRATUL RAYCHAUDHURIStart: 44-71-5816Ylxoi count complete automatedRATUL RAYCHAUDHURIStart: 01-21-2018 CALCIUM, IONIZEDRATUL RAYCHAUDHURIStart: 90-76-9834Xvkvllkyfrf platelet assay RATUL RAYCHAUDHURIStart: 01-84-8967XENA PRECAUTIONSRATUL RAYCHAUDHURIStart: 62-04-9859WFQMFGPKWHRNEKO RAYCHAUDHURIStart: 10-26-4801Nymexvwfyva urinalysis RATUL RAYCHAUDHURIStart: 69-72-2831ORDJK RT REFLEX TO CULTURERAT [facility]URI Start: 99-19-7495GLXQPAFSR CONSULT TO RECYCLING OPERATIONS MANAGER/PROSTHETISTRAT [facility]RI Start: 88-54-9348Earki of lactateRATUL RAYCHAUDHURIStart: 78-37-6658Djofi of magnesiumRATUL RAYCHAUDHURIStart: 78-87-2353Dcu spinal canal cervical w/o contrast matrlRATUL RAYCHAUDHURIStart: 35-42-6546Pt lumbar spine w/o contrast materialRATUL RAYCHAUDHURIStart: 10-96-9905Zn thoracic spine w/o contrast materialRATUL RAYCHAUDHURIStart: 30-10-1684CXGCVM STRIP REPORTRATUL [facility] Start: 30-99-3158WWFQNCPJZ PLATELETSRATUL RAYCHAUDHURIStart: 01-20-2018 Radiologic exam chest single viewRATUL RAYCHAUDHURIStart: 36-21-5374QLYSVRUK BLOOD GAS, POCRATUL RAYCHAUDHURIStart: 37-65-6492Onbck of lactateRATUL RAYCHAUDHURIStart: 05-40-2442Qfyrb of magnesiumRATUL RAYCHAUDHURIStart: 57-13-8723Lkgve of phosphorus inorganicRATUL RAYCHAUDHURIStart: 23-32-1669Vlpsr metabolic panel calcium totalRATUL RAYCHAUDHURIStart: 50-97-6235Ifips count complete auto&auto difrntl wbcRATUL RAYCHAUDHURIStart: 02-06-6354XQYWEVF, IONIZEDRATUL RAY[facility]AUD[facility]URIStart: 54-84-8122Kvz spinal canal lumbar w/o contrast materialRATUL RAY[facility]AUDHURIStart: 42-05-3553Lghseqtbhxz blood/blood components RATUL RAYCHAUDHURIStart: 07-91-5639NRLSWTMMRQ NON-VIOLENT OR SRE-ZJYF-IHNOSAKAJPSDZGNQ RAYCHAUDHURIStart: 58-49-4507ROVWTIUX BLOOD GAS, POC RATUL RAYCHAUDHURIStart: 03-19-6606KOQLXTFZH FRESH FROZEN PLASMARATUL RAYCHAUDHURIStart: 84-98-8379Dcdop of lactateRATUL RAYCHAUDHURIStart: 01-20-2018 Assay of magnesiumRATUL RAYCHAUDHURIStart: 22-69-5395Ykuys of phosphorus inorganicRATUL [facility]CHAUDHURIStart: 12-58-2882Ubdve metabolic panel calcium total RATUL RAYCHAUDHURIStart: 26-98-4174Tllkr count complete auto&auto difrntl wbc RATUL RAYCHAUDHURIStart: 58-15-4765EVYSGRS, IONIZEDRATUL [facility]AY[facility]URIStart: 05-63-2817Amsbivv function panelRATUL RAYCHAUDHURIStart: 42-73-4865ZSJ, RAPID CITRATEDRATUL RAYCHAUDHURIStart: 28-16-3279WBXJ DNA PROBE, NASALRATUL RAYCHAUDHURIStart: 16-53-2055PSCJIZFAA FRESH FROZEN PLASMARATUL [facility] Start: 27-35-7927Ralygneqdw exam chest single viewRATUL RAYCHAUDHURIStart: 67-21-2661Ydzsz gases any combination ph pco2 po2 co2 wca5CLNOC [facility] Start: 72-98-0927GYNBAIIGR BINDERRATUL RAYCHAUDHURIStart: 08-49-9669LUHZ CODE RATUL RAYCHAUDHURIStart: 23-38-6982RA EVAL AND TREATRATUL RAYCHAUDHURIStart: 12-98-1456ZNRVW INTERMITTENT PNEUMATIC COMPRESSION DEVICERATUL [facility] Start: 93-40-4926DG EVAL AND TREATRATUL RAYCHAUDHURIStart: 90-34-4444ICGKTP FOR NO CHEMICAL VTE PROPHYLAXISRATUL RAYCHAUDHURIStart: 03-36-0545RBN EVAL AND TREAT RATUL RAYCHAUDHURIStart: 02-18-9121KQBFX SIGNSRATUL RAY[facility]AUD[facility]URIStart: 13-51-9575QAVDGONF PATIENTRATUL RAYCHAUDHURIStart: 19-38-4374EDNXUAKM COUNTRATUL RAYCHAUDHURIStart: 06-40-1533DBW, RAPID CITRATEDRATUL RAY[facility]AUDHURIStart: 77-13-6965PPZPCIP, IONIZEDRATUL RAY[facility]AUDHURIStart: 27-93-6493GHUKIWCQDRTQDJI RAYCHAUDHURIStart: 45-40-0473NIAO HEART PANELRATUL RAYCHAUDHURIStart: 01-20-2018 Prothrombin timeRATUL RAYCHAUDHURIStart: 05-43-5178Ijxwllltmgczxj time partial plasma/whole bloodRATUL RAYCHAUDHURIStart: 06-47-3105AUAJWLW STATUS (FROM ED OR OR/PROCEDURAL)RATUL RAYCHAUDHURIStart: 13-92-2692FSBDPAEX PATHOLOGYRATUL RAYCHAUDHURIStart: 62-38-5773JSQSSWXYD RED BLOOD CELLSRATUL RAYCHAUDHURIStart: 67-52-6337QHFTZJF RBC (CROSSMATCH)RATUL RAYCHAUDHURIStart: 48-92-8459IOUEIBP, IONIZEDRATUL RAYCHAUDHURIStart: 94-11-3767VEUE HEART PANELRATUL [facility] Start: 88-60-3370Yvsmggylhrw blood/blood componentsRATUL RAYCHAUDHURIStart: 92-50-2593Ek angio abd&plvis cntrst mtrl w/wo cntrst imgRATUL RAYCHAUDHURIStart: 79-21-6788WH CONSULT TO NEUROSURGERYRATUL RAYCHAUDHURIStart: 84-56-2400FQPG AND SCREENRATUL RAYCHAUDHURIStart: 86-59-7700Pepnj of amylaseRATUL [facility] Start: 59-16-5018Rjerv of lipaseRATUL RAYCHAUDHURIStart: 70-67-9914Bapjmip function panelRATUL RAYCHAUDHURIStart: 93-54-1240NSI, RAPID CITRATEDRATUL RAYCHAUDHURIStart: 35-77-8179IBAWNO PANELRATUL RAYCHAUDHURIStart: 01-19-2018 SURGICAL PATHOLOGYRATUL RAYCHAUDHURIStart: 32-09-2066ROMFIIOSZ, QUADV, 3 YRS AND OLDER, IM, MDV, 0.5ML (FLUZONE QUADV)HASEEB AMSTUTZStart: 66-02-8127OXYIDCPCGYFJ POLYSACCHARIDE VACCINE 23-VALENT =>2YO SQ/IMERIC AMSTUTZHernia repairMarc A Naderer Work Phone: History of radiation therapyHistory of radiation therapyG Сергей Carpenter MD Work Phone: History of radiation therapyHistory of radiation therapyG Сергей Carpenter MD Work Phone: Operation on lungMarc A Naderer Work Phone: SplenectomyMarc A Naderer Work Phone: Total colonoscopyMarc A Experentir Work Phone: Plan of Treatment DateCare ActivityDetailAuthorStart: 74-56-8793MLhP,Tdap and Td Vaccines (3 - Td or Tdap)DTaP,Tdap and Td Vaccines (3 - Td or Tdap)[facility] SystemStart: 36-90-4198ITnM/Tdap/Td Vaccines (3 - Td or Tdap)DTaP/Tdap/Td Vaccines (3 - Td or Tdap)[facility] CenterStart: 88-77-4946Kuzsz microalbumin profileDTaP,Tdap,Td Vaccine (3 - Td or Tdap)[facility] 04-[facility]2030 Screening for malignant neoplasm of colonNOMS HealthcareStart: 86-66-7791Cqfcy panelLipid ScreeningCleveland Clinic [facility] Hospitaltart: 88-09-4041RKpU/Tdap/Td Vaccines (2 - Td or Tdap)DTaP/Tdap/Td Vaccines (2 - Td or Tdap)[facility]: 66-02-9518Wsgqt microalbumin profileCleveland Clinic [facility] Hospitaltart: 58-82-9057Gclnvfgr ScreeningDiabetes ScreeningCleveland Clinic [facility] Hospitaltart: 12-14-2026 Diabetes ScreeningDiabetes ScreeningCleveland Clinic [facility] Hospitaltart: 23-69-6631Bsjefjjc ScreeningDiabetes ScreeningCleveland Clinic [facility] Hospitaltart: 35-79-7010Jrcdvqgp Screening Diabetes ScreeningCleveland Clinic [facility] Hospitaltart: 94-17-2139Ubyttokb ScreeningDiabetes ScreeningCleveland Clinic [facility] Hospitaltart: 84-70-2591OBVUHQCCTLIW (3 - PPSV23 or PCV20) PNEUMOCOCCAL (3 - PPSV23 or PCV20)[facility] Hospitaltart: 97-02-6558Gioxegjwzavk vaccinationCleveland Clinic [facility] Hospitaltart: 04-19-9651Ayfagrxekndk Vaccine: Pediatrics (0 to 5 Years) and At-Risk Patients (6 to 64 Years) (3 - PPSV23 orPCV20) Pneumococcal Vaccine: Pediatrics (0 to 5 Years) and At-Risk Patients (6 to 64 Years) (3 - PPSV23 orPCV20)[facility]: 2025 Pneumococcal Vaccine: Pediatrics (0 to 5 Years) and At-Risk Patients (6 to 64 Years) (3 of 3 - PPSV23 or PCV20)Pneumococcal Vaccine: Pediatrics (0 to 5 Years) and At-Risk Patients (6 to 64 Years) (3 of 3 - PPSV23 or PCV20)[facility]: 77-03-7100RIUREIQX SCREENDIABETES SCREENCleveland Clinic [facility] Hospitaltart: 06-27-2025 End: 82-84-2438Pnpvwxj encounter kvstqfoxf62/24/2026 1:45 PM EST Office Visit Radiation Oncology [address] [place] [address] Kathrine Carpenter MD [address] [place] [address] 6 month follow upRadiation OncologyComment on above:6 month follow upStart: 06-22-2025 End: 78-96-0761ANI W/REFLEX FT4TSH W/REFLEX FT4 Lab Routine Hypothyroidism due to acquired atrophy of thyroid Expected: 06/22/2025, Expires: 09/21/2025 [facility] Work Phone: Comment on above:Expected: 06/22/2025, Expires: 09/21/2025Start: 78-52-1236SP Controlled (<130/80)BP Controlled (<130/80) [facility] Hospitaltart: 06-20-2025 End: 33-33-0641Fioeuwe encounter samkdfbmb71/17/2026 11:00 AM EST Office Visit [facility] [address] [place] [address] [place] [address] LABWomen [facility] LaboratoryComment on above:LABStart: 25-01-1100JADWUMDU SCREENDIABETES SCREENCleveland Clinic [facility] Hospitaltart: 05-05-2025 End: 42-58-4073Ikxwbah encounter ldyiddsck70/02/2026 2:00 PM EST Office Visit [facility] [address] [place] [address] Carmen Neely MD [address] [place] [address] [facility]: 04-18-2025 End: 46-05-9813Asadgul encounter kgoijmekg31/16/2025 10:00 AM EST Office Visit [facility] [address] [place] [phone] Gildardo Lacy MD [address] [place] [phone] [facility]ATHERY[facility] MANI FMStart: 12-10-2025Medicare Annual Wellness (AWV)Medicare Annual Wellness (AWV)[facility] HealthcareStart: 02-21-2025 End: 40-96-2554Xtvynlw encounter ozsfshuhs43/21/2025 2:15 PM EDT Office Visit [facility] [address] [place] [phone] Jl Shepherd DPM [address] [place] [address] NOMConcepcion Tellez PodiatryStart: 02-15-2025 End: 08-30-9809Iwuydss encounter dgzlskzlo37/15/2025 3:00 PM EDT Office Visit [facility] [address] [place] [phone] Kaela Negrete, DO [address] [facility] [place] [address] [facility] FNR PULMStart: 73-22-6503NRIIKHLF SCREENDIABETES SCREEN [facility]tart: 01-10-2025 End: 66-73-0413Yoddpdh encounter pripybfxr01/09/2025 1:30 PM EDT Office Visit [facility] [address] [place] [phone] Jl Shepherd DPM [address] [place], [place] [phone] ArrivedKearney [facility] PodiatryComment on above:ArrivedStart: 50-03-3522MMMSQ-19 Vaccine ( season)COVID-19 Vaccine ( season)[facility] SystemStart: 92-98-8520Szrvpymoy vaccinationNONJ HealthcareStart: 12-21-2024 End: 15-60-3803Sgugftw encounter procedureNOMS FNR PULMComment on above:Chronic obstructive pulmonary disease, unspecified COPD type (HCC); Chronic hypoxic respiratory failure (HCC)Start: 12-20-2024 End: 45-68-0329Vixduwk encounter procedureRadiation OncologyComment on above: FollowupStart: 11-07-2024 End: 15-24-7349Dxhkenagzhab / ancillary services sdxwfqtpim93/07/2025 2:00 PM EDT Ancillary Procedure [facility] [address] [place] [phone] [facility] F[facility] RADIOLOGYStart: 34-32-1638Nqaur BMI Screening Adult BMI ScreeningCarolinaEast Medical Centertart: 48-28-6200Sitcnjx Screening Tobacco ScreeningCarolinaEast Medical Centertart: 10-11-2024 End: 70-65-7964Thiyxjj encounter procedureNOMS CWM FMComment on above:Arrived Start: 08-72-8231SNKVZEHJ SCREENDIABETES SCREENCleveland Clinic [facility] Hospitaltart: 09-24-2024 DIABETES SCREENDIABETES SCREENCleveland Clinic [facility] Hospitaltart: 35-52-8434BBARPWDJ SCREEN DIABETES SCREENCleveland Clinic [facility] Hospitaltart: 09-15-2024 End: 16-19-2121Oqelter encounter ebqjinhoy98/15/2025 1:45 PM EDT [facility] [address] [place] [phone] Gildardo Lacy MD [address] [place] [phone] [facility] CW FMStart: 09-12-2024 End: 10-81-9951Cexsl 1996 panel - Serum or PlasmaLipid Panel Lab Routine Hyperlipidemia, unspecified hyperlipidemia type Expected: 09/12/2024 (Approx imate), Expires: 09/12/2025[facility] Service Area Work Phone: Comment on above:Expected: 09/12/2024 (Approximate), Expires: 09/12/2025Start: 12-99-3264LPXCBXXJ SCREENDIABETES SCREENCleveland Clinic [facility] Hospitaltart: 09-08-2024 End: 08-14-0232Ovzxgoc encounter procedureNOMS CW FMComment on above:Arrived Start: 09-05-2024 End: 66-49-5939Vxedsceedqyv consultation with awakhyn4109/05/2024 10:00 AM EDT Telemedicine [facility] Department of [facility] [facility] [address] [place] [address] Nikos Moon MD [address] [facility] [address] [place] [phone] [facility] Department of [facility] CenteredicSelect [facility] - Cincinnatitart: 72-45-0477JBGYZIVL SCREENDIABETES SCREENCleveland Clinic [facility] Hospitaltart: 35-55-8187VQGPYCFX SCREENDIABETES SCREENCleveland Clinic [facility] Hospitaltart: 08-19-2024 DIABETES SCREENDIABETES SCREENCleveland Clinic [facility] Hospitaltart: 00-14-0674ZDLMXZGM SCREEN DIABETES SCREENCleveland Clinic [facility] Hospitaltart: 08-03-2024 End: 41-24-2920Rvlmnnr encounter cpcdwawff04/02/2025 10:00 AM EDT Office Visit [facility] [address] [place] [phone] Rashida Zarate NP [address] [phone] Occlusion of left internal carotid artery (Primary Dx); Dyslipidemia (CMS/HCC); Cerebrovascular accident (CVA), unspecified mechanism (CMS/HCC)[facility] CWM FMComment on above:Occlusion of left internal carotid artery (Primary Dx); Dyslipidemia (CMS/HCC); Cerebrovascular accident (CVA), unspecified mechanism (CMS/HCC)Start: 06-28-2024 DIABETES SCREENDIABETES SCREENCleveland Clinic [facility] Hospitaltart: 06-21-2024 End: 09-82-0762Lplnrec encounter pbzgwuxax16/18/2025 1:30 PM EST Office Visit Radiation Oncology [address] [place] [address] [place] [address] Kathrine Carpenter MD [address] [place] [address] FollowupRadiation OncologyComment on above:FollowupStart: 06-10-2024 End: 60-28-3801Odrophl encounter procedureRadiologyComment on above:XR SHOULDER GENERAL 3V OR MORE AP/TRUE AP/OTHER RIGHTRt shoulder / arthralgiaStart: 06-09-2024 End: 39-84-1419Loudybv encounter hoxsusbny08/06/2025 10:20 AM EST Office Visit [facility] [address] [place] [phone] Carmen Neely MD [address] [place] [address] [facility]: 05-24-2024 End: 32-16-8539Nvdeqft encounter procedureNOMS FB ORTHOPAEDICSComment on above: S/P arthroscopy of right shoulder (Primary Dx); Internal derangement of shoulder, rightStart: 05-06-2024 End: 14-91-8688BU Shoulder - right WO contrastMR shoulder right wo IV contrast Imaging Routine Internal derangement of shoulder, right Expected: 05/06/2024 (Approximate), Expires: 05/06/2025[facility] Work Phone: Comment on above:Expected: 05/06/2024 (Approximate), Expires: 05/06/2025Start: 05-06-2024 End: 77-77-6325Qigaxvk encounter procedureNOMS FB ORTHOPAEDICSComment on above: S/P arthroscopy of right shoulder (Primary Dx)Start: 01-01-2025Medicare Advantage Annual Wellness VisitMedicare Advantage Annual Wellness VisitCleveland [facility] 04[facility]24 End: 13-26-8048ET Foot - left 2 ViewsXR foot 1 or 2 views left Imaging Routine Left foot pain Expected: 04/12/2024, Expires: 04/12/2025[facility] Work Phone: Comment on above:Expected: 04/12/2024, Expires: 04/12/2025Start: 04-12-2024 End: 94-19-8298Epbmjfq encounter procedureNOMS CWM FMComment on above:Arrived Start: 03-23-2024 End: 67-24-8716Gylvhcp encounter procedureNOMS FB ORTHOPAEDICSComment on above: S/P arthroscopy of right shoulder (Primary Dx)Start: 02-29-2024 End: 02-55-6122Oscviiu encounter procedureNOMS CWM FMComment on above:Arrived Start: 02-23-2024 End: 72-38-5533Hfoimsd encounter procedureNOMS FB ORTHOPAEDICSComment on above: S/P arthroscopy of right shoulder (Primary Dx)Start: 02-09-2024 End: 57-28-1965Fayjcej encounter jibsdkstc98/08/2024 11:30 AM EDT Procedure Visit [facility] Jr. Martin Chen, DO [address] [place] [address] [facility] EXT DEPStart: 02-02-2024 End: 53-04-6644GMY 12 leadECG 12 lead ECG Routine Preop examination Expected: 02/02/2024 (Approximate), Expires: 01/27/2025[facility] Work Phone: Comment on above:Expected: 02/02/2024 (Approximate), Expires: 01/27/2025Start: 26-66-5459YVZOH-19 Vaccine ( season)COVID- 19 Vaccine ( season)[facility] CenterStart: 00-97-6721ZVWSH-19 Vaccine ( season)COVID-19 Vaccine ( season)[facility] SystemStart: 03-20-1528Lejob-19 Vaccine ( season)Covid-19 Vaccine ( season)[facility] 01-[facility]-2024 Influenza vaccinationInfluenza Vaccine (#1)[facility]: 12-28-2023 End: 28-76-3633Zqyrqby encounter cefzlmdyo23/26/2024 2:00 PM EDT Office Visit [facility] [address] [place] [id number] Jr. Martin Chen, DO [address] [facility] [address] [place] [address] ArrivedNOMS FB ORTHOPAEDICSComment on above:ArrivedStart: 12-22-2023 End: 75-28-1098Ydyjxt-up vycfcpbif06/20/2024 3:15 PM EDT Visit (SP) Office Hematology/Oncology [address] [place], [place] [phone] Esdras Cash MD [address] [place] [address] 18 week follow up for pet scan resultsHematology/OncologyComment on above:18 week follow up for pet scan resultsStart: 12-22-2023 End: 90-87-0388Guwhovl encounter cpwjxkdlu88/20/2024 2:45 PM EDT Office Visit Radiation Oncology [address] [place] [address] Kathrine Carpenter MD [address] [place] [address] FollowupRadiation OncologyComment on above:FollowupStart: 12-18-2023 End: 26-29-7532IFO W Auto Differential panel - BloodCOMPLETE BLOOD COUNT AND DIFFERENTIAL Lab Routine Cancer of base of tongue (HCC) Malaise and fatigue Expected: 12/18/2023 (Approximate), Expires: 03/18/2024[facility] Work Phone: Comment on above:Expected: 12/18/2023 (Approximate), Expires: 03/18/2024Start: 12-18-2023 End: 30-87-7824Pxyyewouggsja metabolic 2000 panel - Serum or PlasmaCOMPREHENSIVE METABOLIC PANEL Lab Routine Cancer of base of tongue (HCC) Malaise and fatigue Expected: 12/18/2023 (Approximate), Expires: 03/18/2024[facility] Work Phone: Comment on above:Expected: 12/18/2023 (Approximate), Expires: 03/18/2024Start: 12-18-2023 End: 23-45-9135Yzhnoywcllp [Units/volume] in Serum or PlasmaTHYROID STIMULATING HORMONE Lab Routine Cancer of base of tongue (HCC) Malaise and fatigue Expected: 12/18/2023 (Approximate), Expires: 03/18/2024[facility] Work Phone: Comment on above:Expected: 12/18/2023 (Approximate), Expires: 03/18/2024Start: 12-15-2023 End: 30-03-2373Arcblgv encounter zwsdukusw23/13/2024 9:00 AM EDT Appointment Radiology Pet CT [address] [place] [address] Pet scan Radiology Pet CTComment on above:Pet scanStart: 11-17-2023 End: 39-95-7741Ttbaaql encounter txwohnrcy02/16/2024 10:20 AM EDT Office Visit [facility] [address] [place] [phone] Carmen Neely MD [address] [place] [address] [facility]: 32-45-3817DO CONTROLLED (<130/80)BP CONTROLLED (<130/80)[facility]: 22-43-6450Gvnfxoegg vaccinationLUNG CANCER SCREENINGCleveland Clinic [facility]tart: 33-45-8190Ititumtqj for malignant neoplasm of lungLung Cancer ScreeningCleveland Clinic [facility]tart: 15-53-0704QG CONTROLLED (<130/80)BP CONTROLLED (<130/80)[facility]: 03-56-9573RB CONTROLLED (<130/80)BP CONTROLLED (<130/80)[facility]: 05-06-2023 End: 22-63-8776Zlbef 1996 panel - Serum or PlasmaLipid Panel Lab Routine Hyperlipidemia, unspecified hyperlipidemia type Expected: 05/06/2023 (Approx imate), Expires: 05/06/2024[facility] Service Area Work Phone: Comment on above:Expected: 05/06/2023 (Approximate), Expires: 05/06/2024Start: 92-26-8028ZI CONTROLLED (<130/80)BP CONTROLLED (<130/80)[facility]: 99-62-4450Dnbhflgod vaccinationLUNG CANCER SCREENINGCleveland Clinic [facility]tart: 59-46-2119Ahzhnrlxy for malignant neoplasm of colonColonoscopySumma Health [facility] SystemStart: 47-56-7937PV CONTROLLED (<130/80) BP CONTROLLED (<130/80)[facility]: 02-38-8755UP CONTROLLED (<130/80) BP CONTROLLED (<130/80)[facility]: 75-32-2530Nurjkhtlreua vaccination Pneumococcal Vaccine (3 of 3 - PCV20 or PCV21)[facility] Start: 60-82-8664Lcohqbjadxja Vaccine: 50+ (3 of 3 - PCV20 or PCV21)Pneumococcal Vaccine: 50+ (3 of 3 - PCV20 or PCV21)[facility]: 94-51-7407Dtgsi-19 Vaccine ( season)Covid-19 Vaccine ( season)[facility]: 09-43-0227Cvwwlxfnj vaccinationCleveland Clinic [facility]: 36-44-3600FR CONTROLLED (<130/80)BP CONTROLLED (<130/80)[facility]: 91-27-9320CBT, Provider: Carmen Neely, Status: Pen, Time: 10:20 AMEPV, Provider: Carmen Neely, Status: Pen, Time: 10:20 [place] [address] [place] Work Phone: Start: 60-32-2179SK CONTROLLED (<130/80)BP CONTROLLED (<130/80)[facility]: 89-52-8122XZ CONTROLLED (<130/80)BP CONTROLLED (<130/80)[facility]: 96-21-3099TN CONTROLLED (<130/80)BP CONTROLLED (<130/80)[facility]: 19-82-2801IE CONTROLLED (<130/80)BP CONTROLLED (<130/80)[facility]: 27-28-3340VN CONTROLLED (<130/80)BP CONTROLLED (<130/80)[facility]: 15-97-5084AR CONTROLLED (<130/80)BP CONTROLLED (<130/80)[facility]: 60-35-2596GH CONTROLLED (<130/80)BP CONTROLLED (<130/80)[facility]: 24-14-8544HR CONTROLLED (<130/80)BP CONTROLLED (<130/80)[facility]: 08-12-2022 End: 93-37-5430FDUEWELXPP BLDCREATININE BLD Lab Routine Oropharnyx cancer (HCC) Expected: 08/12/2022, Expires: 10/12/2022[facility] Work Phone: Comment on above:Expected: 08/12/2022, Expires: 10/12/2022Start: 00-70-3139YGFJV-19 Vaccine (4 - Pfizer series)COVID-19 Vaccine (4 - Pfizer series)[facility] CenterStart: 71-97-6309LV CONTROLLED (<130/80)BP CONTROLLED (<130/80)[facility]: 99-15-2602DF CONTROLLED (<130/80)BP CONTROLLED (<130/80)[facility]: 07-16-2022 End: 78-50-8431Kjponsbzwax [Units/volume] in Serum or PlasmaTSH BLD Lab Routine Cancer of base of tongue (HCC) Expected: 07/16/2022, Expires: 09/15/2022 [facility] Work Phone: Comment on above:Expected: 07/16/2022, Expires: 09/15/2022Start: 07-16-2022 End: 62-73-1680Vdrwjnrff (T4) [Mass/volume] in Serum or PlasmaT4/THYROXINE BLOOD Lab Routine Cancer of base of tongue (HCC) Expected: 07/16/2022, Expires: 09/15/2022[facility] Work Phone: Comment on above:Expected: 07/16/2022, Expires: 09/15/2022Start: 77-40-5119Qkmoosaqs vaccinationLUNG CANCER SCREENINGC[facility] Clinic [facility]tart: 78-15-1505ERT, Provider: Carmen Neely, Status: Pen, Time: 10:20 AMFUV, Provider: Carmen Neely, Status: Pen, Time: 10:20 AMMP-[facility] 250 DO Work Phone: Start: 04-25-2022 End: 62-10-7639AXGUPOZLQR BLDCREATININE BLD Lab Routine Oropharnyx cancer (HCC) Expected: 04/25/2022 (Approximate), Expires: 06/25/2022[facility] Work Phone: Comment on above:Expected: 04/25/2022 (Approximate), Expires: 06/25/2022Start: 72-84-4087SXMROJKQWSLO (3 - PPSV23 if available, else PCV20)PNEUMOCOCCAL (3 - PPSV23 if available, else PCV20)[facility]: 74-34-3476BSZFBZVJLGKJ (3 - PPSV23 or PCV20)PNEUMOCOCCAL (3 - PPSV23 or PCV20) [facility]: 11-14-9755OFYNFG NUC, Provider: KELSEY HHVI NUCLEAR 01,[id number], Status: Pen, Time: 12:00 PMSTRESS NUC, Provider: KELSEY HHVI NUCLEAR 01,[id number], Status: Pen, Time: 12:00 PM-[facility] 250 DO Work Phone: Start: 07-12-1590DYSL, Provider: KELSEY HHVI ULTRASOUND 01,[id number], Status: Pen, Time: 10:45 AMECHO, Provider: KELSEY HHVI ULTRASOUND 01,[id number], Status: Pen, [facility]: 10:[facility] DO Work Phone: Start: 01-03-2022 End: 34-26-5118WWY W Auto Differential panel - BloodCBC + DIFF Lab Routine Malaise and fatigue Oropharnyx cancer (HCC) Expected: 01/03/2022, Expires: [facility] Work Phone: Comment on above:Expected: 01/03/2022, Expires: 03/05/2022tart: 01-03-2022 End: 81-85-8892Xhtdshebsrunh metabolic 2000 panel - Serum or PlasmaCOMP METABOLIC PANEL Lab Routine Malaise and fatigue Oropharnyx cancer (HCC) Expected: 01/03/2022, Expires: 03/05/2022[facility] Work Phone: Comment on above:Expected: 01/03/2022, Expires: 03/05/2022tart: 01-03-2022 End: 02-62-1269K1/FTI/T4UT4/FTI/T4U Lab Routine Malaise and fatigue Oropharnyx cancer (HCC) Expected: 01/03/2022, Expires: 03/05/2022[facility] Work Phone: Comment on above:Expected: 01/03/2022, Expires: 03/05/2022tart: 01-03-2022 End: 21-55-6518Qqahucfsjzo [Units/volume] in Serum or PlasmaTSH BLD Lab Routine Malaise and fatigue Oropharnyx cancer (HCC) Expected: 01/03/2022, Expires: 03/05[facility] Work Phone: Comment on above:Expected: 01/03/2022, Expires: 03/05/2022tart: 69-58-1647Jegcahxcc vaccinationINFLUENZA (#1)[facility] Start: 12-26-2021 End: 78-72-4923Ibxkqocutql [Units/volume] in Serum or PlasmaTSH BLD Lab Routine Oropharnyx cancer (HCC) Expected: 12/26/2021, Expires: 02/25/2022[facility] Work Phone: Comment on above:Expected: 12/26/2021, Expires: 02/25/2022tart: 12-26-2021 End: 74-89-5565Ighicqviu (T4) [Mass/volume] in Serum or PlasmaT4/THYROXINE BLOOD Lab Routine Oropharnyx cancer (HCC) Expected: 12/26/2021, Expires: 02/25/2022 [facility] Work Phone: Comment on above:Expected: 12/26/2021, Expires: 02/25/2022tart: 12-22-2021 End: 86-44-3899XF PET/CT SKULL-THIGH SUBSEQUENTNM PET/CT SKULL-THIGH SUBSEQUENT Radiology Routine Oropharnyx cancer (HCC) Expected: 12/22/2021, Expires: 12/21/2022[facility] Work Phone: Comment on above:Expected: 12/22/2021, Expires: 12/21/2022Start: 09-24-2021 End: 99-80-1750Lhymv metabolic 2000 panel - Serum or PlasmaBASIC METABOLIC PNL Lab Routine Oropharnyx cancer (HCC) Expected: 09/24/2021, Expires: 11/24/2021 [facility] Work Phone: Comment on above:Expected: 09/24/2021, Expires: 11/24/2021tart: 09-24-2021 End: 50-35-9667HKB W Auto Differential panel - BloodCBC + DIFF Lab Routine Oropharnyx cancer (HCC) Expected: 09/24/2021, Expires: 11/24/2021[facility] Work Phone: Comment on above:Expected: 09/24/2021, Expires: 11/24/2021tart: 09-16-2021 End: 24-60-2734OYP W Auto Differential panel - BloodCBC + DIFF Lab Routine Lower abdominal pain Cancer of base of tongue (HCC) Nausea Expected: 09/16/2021, Expires: 11/16/2021[facility] Work Phone: Comment on above:Expected: 09/16/2021, Expires: 11/16/2021tart: 09-16-2021 End: 91-02-6836Jvgfpxylopnmg metabolic 2000 panel - Serum or PlasmaCOMP METABOLIC PANEL Lab Routine Lower abdominal pain Cancer of base of tongue (HCC) Nausea Expected: 09/16/2021, Expires: 07/16/[address] [place] [address] Work Phone: Comment on above:Expected: 09/16/2021, Expires: 11/16/2021tart: 09-02-2021 End: 70-67-1603XDK W Auto Differential panel - BloodSelect [facility]ty [facility] Work Phone: Comment on above:Expected: 09/02/2021, Expires: 11/02/2021tart: 09-02-2021 End: 99-99-8146Rpmnyfbxismcf metabolic 2000 panel - Serum or PlasmaSelect [facility]ty [facility] Work Phone: Comment on above:Expected: 09/02/2021, Expires: 11/02/2021tart: 08-26-2021 End: 31-20-5021KDZ W Auto Differential panel - BloodCBC + DIFF Lab Routine 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) Oropharyngeal dysphagia Chronic obstructive pulmonary disease, unspecified COPD type (HCC) Heart disease Cancer related pain Anxiety and depression Severe protein-calorie malnutrition (HCC) Malaise and fatigue Hypertension, unspecified type Tachycardia Expected: 08/26/2021, Expires: [address] [place] [address] Work Phone: Comment on above:Expected: 08/26/2021, Expires: 10/26/2021tart: 08-26-2021 End: 62-09-5006Dbcqkiyphcfnp metabolic 2000 panel - Serum or PlasmaCOMP METABOLIC PANEL Lab Routine 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) Oropharyngeal dysphagia Chronic obstructive pulmonary disease, unspecified COPD type (HCC) Heart disease Cancerrelated pain Anxiety and depression Severe protein-calorie malnutrition (HCC) Malaise and fatigue Hypertension, unspecified type Tachycardia Expected: 08/26/2021, Expires: [address] [place] [address] Work Phone: Comment on above:Expected: 08/26/2021, Expires: 2Start: 08-12-2021 End: 25-06-0918CAP W Auto Differential panel - BloodCBC + DIFF Lab Routine Cancer of base of tongue (HCC) Malaise and fatigue Expected: 08/12/2021, Expi res: [address] [place] [address] Work Phone: Comment on above:Expected: 08/12/2021, Expires: 10/12/2021tart: 08-12-2021 End: 35-17-3023Jlblfrhhlhtnt metabolic 2000 panel - Serum or PlasmaCOMP METABOLIC PANEL Lab Routine Cancer of base of tongue (HCC) Malaise and fatigue Expected: 08/12/2021, Expires: [address] [place] [address] Work Phone: Comment on above:Expected: 08/12/2021, Expires: 2Start: 08-12-2021 End: 61-60-8176O8/FTI/T4UT4/FTI/T4U Lab Routine Cancer of base of tongue (HCC) Malaise and fatigue Expected: 08/12/2021, Expires: [address] [place] [address] Work Phone: Comment on above:Expected: 08/12/2021, Expires: 10/12/2021tart: 08-12-2021 End: 26-42-5927Mmdqrxqrekr [Units/volume] in Serum or PlasmaTSH BLD Lab Routine Cancer of base of tongue (HCC) Malaise and fatigue Expected: 08/12/2021, Expires : [address] [place] [address] Work Phone: Comment on above:Expected: 08/12/2021, Expires: 2Start: 08-01-2021 End: 14-80-4064LYS W Auto Differential panel - BloodCBC + DIFF Lab Routine Cancer of base of tongue (HCC) Malaise and fatigue Expected: 08/01/2021, Expi res: 10/01/2021[facility] Work Phone: Comment on above:Expected: 08/01/2021, Expires: 10/01/2021tart: 08-01-2021 End: 40-08-9047Lotyizfaooynj metabolic 2000 panel - Serum or PlasmaCOMP METABOLIC PANEL Lab Routine Cancer of base of tongue (HCC) Malaise and fatigue Expected: 08/01/2021, Expires: [address] [place] [address] Work Phone: Comment on above:Expected: 08/01/2021, Expires: 10/01/2021tart: 08-01-2021 End: 88-93-7121V0/FTI/T4UT4/FTI/T4U Lab Routine Cancer of base of tongue (HCC) Malaise and fatigue Expected: 08/01/2021, Expires: [address] [place] [address] Work Phone: Comment on above:Expected: 08/01/2021, Expires: 10/01/2021tart: 08-01-2021 End: 23-32-9066Eurcnkjanbx [Units/volume] in Serum or PlasmaTSH BLD Lab Routine Cancer of base of tongue (HCC) Malaise and fatigue Expected: 08/01/2021, Expires : [address] [place] [address] Work Phone: Comment on above:Expected: 08/01/2021, Expires: 10/01/2021tart: 05-72-7811ANQEC-19 VACCINE (4 - Booster)COVID-19 VACCINE (4 - Booster)[facility]: 26-33-9608CPYCY-19 VACCINE (4 - Booster)COVID-19 VACCINE (4 - Booster)[facility]: 36-62-3685GLSUA-19 VACCINE (4 - Booster)COVID-19 VACCINE (4 - Booster)[facility]: 65-63-4849XMH Vaccine (1 - 1-dose 60+ series)RSV Vaccine (1 - 1-dose 60+ series)[facility]: 65-13-9948BGSJVRJR VACCINE (2 of 2)SHINGRIX VACCINE (2 of 2) [facility]: 66-71-0951[place] Vaccines (2 of 2)Zoster Vaccines (2 of 2)[facility] CenterStart: 81-28-7991WMUFESNJ CANCER SCREENING DISCUSSIONPROSTATE CANCER SCREENING DISCUSSIONCleTrinity Health System West Campustart: 09-19-2015 Prostate specific antigen measurementProstate Cancer Screening Discussion [facility]: 93-03-3195IREKDCWL VACCINE (1 of 2)SHINGRIX VACCINE (1 of 2)[facility]: 50-79-9398VEPDFRYMC (FIT-DNA)COLOGUARD (FIT-DNA) [facility]: 96-92-3525LiboxtctageUZLUPCQGBWLKxzptpwxc ClinicStart: 50-13-2394LHHJBVQJVU CANCER SCREENINGCOLORECTAL CANCER SCREENINGReg[facility] Start: 28-70-7518WQ COLONOGRAPHYCT COLONOGRAPHYC[facility] Clinic [facility]tart: 2005 FECAL OCCULT BLOODFECAL OCCULT BLOODC[facility] Clinic [facility]tart: 07-28-9592Pdkbnpmz specific antigen measurementProstate Cancer Screening DiscussionRegency Hospital [facility] Start: 49-89-4487Frlufrwnx for malignant neoplasm of colonC[facility] Clinic [facility]tart: 31-51-0205TVGFXCJTCSIXAXXMTQATCNBPYJVnsvdrakv ClinicStart: 54-60-2552Bwqjv 1996 panel - Serum or PlasmaLipid ScreeningC[facility] Clinic [facility] Hospitaltart: 95-88-9018Zzqoi panelLipid ScreeningC[facility] Clinic [facility]tart: 51-06-1005ECHDP SCREENLIPID SCREEN [facility]: 00-25-1217Cgcikdtvgr acid therapyALPHA-1 ANTITRYPSIN DEFICIENCY SCREENINGC[facility] Clinic [facility]tart: 80-06-1919Dkedp microalbumin profile DTAP,TDAP,TD (1 - Tdap)[facility]: 44-51-9690TQLSEL PCP TEAM CHRONIC DISEASE VISITANNUAL PCP TEAM CHRONIC DISEASE VISITCleveland Clinic [facility]tart: 51-79-1052Jqwcpnc ScreeningAnxiety ScreeningCleveland Clinic [facility] Hospitaltart: 92-88-1231KU CONTROLLED (<130/80)BP CONTROLLED (<130/80)[facility]: 1978 Diabetes mellitus screeningDiabetes ScreeningThe [facility] of [facility] Start: 64-87-8363HXOJCTASN C SCREENINGHEPATITIS C SCREENINGRegency [facility] Start: 39-51-8448Nymbnxfiu C screeningHepatitis C ScreeningThe [facility] of [facility] CenterStart: 29-61-7208ZSP SCREENINGHIV SCREENINGC[facility] Clinic [facility]tart: 97-68-4780AVR screeningHIV ScreeningCleveland Clinic [facility] Hospitaltart: 39-62-2353EJUTDWEMZD SPIROMETRYCleveland Clinic [facility] Hospitaltart: 26-36-6943Zhnwswpwep ScreeningDepression ScreeningProMarymount Hospitaltart: 04-79-1475NRK Vaccines (1 of 1 - Standard series)MMR Vaccines (1 of 1 - Standard series)[facility] Start: 52-69-0312RZY screeningHIV ScreeningUnSt. Elizabeth Hospital Start: 20-33-8096Whxuy panelLipid PanelUnSt. Elizabeth HospitalStart: 05-18-1961Medicare Annual Wellness (AWV)Medicare Annual Wellness (AWV)[facility] HealthcareStart: 05-18-1961Medicare Annual Wellness VisitMedicare Annual Wellness Visit (AWV)[facility] CenterStwalterboro: 08-34-3542Svhjcqobz for malignant neoplasm of colonUnSt. Elizabeth HospitalStwalterboro: 61-43-8880Ajbljz Use: CardiovascularStatin Use: CardiovascularProKettering Health Main Campus SystemStart: 38-82-1063Zqwbodk CounselingTobacco CounselingProDayton Children'S HospitalBLOOD CULTURE 1BLOOD CULTURE 1 Lab Routine 08/30/2024 3:09 PM EDTNOMS HealthcareBLOOD CULTURE 2BLOOD CULTURE 2 Lab Routine 08/30/2024 4:10 PM EDTNOMS Healthcare End: 25-39-3062US CHEST W IVCONCT CHEST W IVCON Radiology Routine Oropharnyx cancer (HCC) 1 [facility]ur[facility] 02[facility]25[facility]2022 [facility] Work Phone: Comment on above:1 Occurrences starting 02/25/2022 until 03/27/2023 End: 34-97-1416Vz soft tissue neck w/contrast materialCT NECK SOFT TISSUE W IVCON Radiology Routine Oropharnyx cancer (HCC) 1 Occurrences starting 022 until 03/27/2023[facility] Work Phone: Comment on above:1 Occurrences starting 02/25/2022 until 03/27/2023 End: 85-68-6021ZXK+CT Guidance for localization of tumor of Skull base to mid-thigh-- W 18F-FDG IVNM PET/CT SKULL-THIGH SUBSEQUENT Radiology Routine Cancer of base of tongue (HCC) Malaise and fatigue 1 Occurrences starting 08/18/2023 until [facility] Work Phone: Comment on above:1 Occurrences starting 08/18/2023 until 09/16/2024PT PLAN OF CARE CERTIFICATIONPT PLAN OF CARE CERTIFICATION Procedures Routine Current smoker Physical deconditioning Ordered: 08/09/2021 [facility] Work Phone: Comment on above:Ordered: 08/09/2021 End: 92-76-2234Ircsvlsvns exam abdomen 2 viewsXR ABDOMEN 2V ROUTINE SUPINE W UPRIGHT/DECUB/CTL Radiology Routine Lower abdominal pain 1 Occurrences starting 09/16/2021 until 10/16/2022[facility] Work Phone: Comment on above:1 Occurrences starting 09/16/2021 until 10/16/2022 End: 27-37-0819VY Shoulder - right 3 ViewsXR SHOULDER GENERAL 3V OR MORE AP/TRUE AP/OTHER RIGHT Radiology Routine Pain 1 Occurrences mhaozesy34/04/2025 until 07/07/2025[facility] Work Phone: Comment on above:1 Occurrences starting 06/07/[address] [place] [address] Immunizations Immunization DateImmunizationNotesCare TzdirxubNxilucmr52-85-7081adtsycu toxoid, reduced diphtheria toxoid, and acellular pertussis vaccine, Mekhi Zarate NP Work Phone: noExcelsior Springs Medical CenterUxdzfzbwsw80-35-4170lwaeoleid, seasonal, injectable, preservative freeGildardo Lacy MD Work Phone: noExcelsior Springs Medical CenterXnjutndyhp40-38-5778yjjmuirth virus vaccine, unspecified formulationGildardo Lacy MD Work Phone: [facility] HealthYqezrxztie51-52-5387bdpwnqspbrp syncytial virus (RSV) vaccine, adjuvanted (AREXVY)Esdras Cash MD Work Phone: [facility] EastVidsul95-81-0241ugeqzc vaccine recombinant Esdras Cash MD Work Phone: [facility] EastXmhcbz72-77-5176Rlckqyclb, injectable, Madin Carmen Canine Kidney, preservative free, quadrivalentEsdras Cash MD Work Phone: [facility] EastWjbgkf58-97-6013axyeywhdk virus vaccine, unspecified formulationDENIA Carpenter MD Work Phone: [facility] EastNbqmto18-76-4883pchzhkcgj, injectable, quadrivalent, preservative Marilu Cash MD Work Phone: [facility] EastDwfxxv26-50-2183vxzponlnr virus vaccine, unspecified formulationDENIA Carpenter MD Work Phone: [facility] EastTneerz75-00-4503wfrfvcrgk, injectable, quadrivalent, preservative Marilu Cash MD Work Phone: [facility] EastMzikkf96-75-8855XQODH-22 vaccine (UNSPECIFIED)Esdras Cash MD Work Phone: [facility] [id number]-76 vaccine, age 12+ yr (PFIZER-BIONTECH - PURPLE TOP)Nathaly Biggs APRN.CNP Work Phone: [facility] [id number]-86 vaccine, age 12+ yr (PFIZER-BIONTECH - PURPLE [facility])Esdras Cash MD Work Phone: [facility] [id number]-05 vaccine (UNSPECIFIED)Esdras Cash MD Work Phone: [facility] [id number]-29 vaccine, age 12+ yr ([facility])Esdras Cash MD Work Phone: [facility] EastFlkusk33-68-7679mesilctsn, injectable, quadrivalent, preservative Marilu Cash MD Work Phone: [facility] EastUbbrhj72-98-2105tdlvbpksq, seasonal, injectableEsdras Cash MD Work Phone: [facility] EastJqsrcy37-58-5137snkhwmtrh, injectable, quadrivalent, preservative Marilu Cash MD Work Phone: [facility] EastIsdwyq12-57-7239ecdzzrv toxoid, reduced diphtheria toxoid, and acellular pertussis vaccine, adsorbedLori Andre Children's Hospital for RehabilitationXgicvd39-33-3073waleao vaccine recombinantLori Berger HospitalIfuwuq92-94-6039rpzjborpdc skin test; purified protein derivative solution, intradermalLisa Elliot PRELOAD SUPERVISOR Work Phone: [facility] HealthVfdhwnuffl65-18-4599nkpguvwhrif influenzae type b vaccine, PRP-T conjugateEsdras Cash MD Work Phone: [facility] EastTcveqz02-08-9398slosxnohhztzq B vaccine, recombinant, OMV, adjuvantedEsdras Cash MD Work Phone: [facility] EastZvpcag03-45-4492ijxluiduqqqkw oligosaccharide (groups A, C, Y and W-135) diphtheria toxoid conjugate vaccine (MCV4O)Esdras Cash MD Work Phone: [facility] EastFvkkvx30-88-4810rkunbesjxdlfr polysaccharide (groups A, C, Y and W-135) diphtheria toxoid conjugate vaccine (MCV4P)Esdras Cash MD Work Phone: [facility] EastBtqwgu87-18-6946wwipythelkej conjugate vaccine, 13 valentEsdras Cash MD Work Phone: [facility] EastWzqrlb64-81-2079xqptdzsud, injectable, quadrivalent, preservative Marilu Cash MD Work Phone: [facility] EastMrcbeo49-65-7572awnoflvdr, injectable, quadrivalent, contains preservativeEsdras Cash MD Work Phone: [facility] EastYnieqi49-48-2415dtmvlyjagmxm polysaccharide vaccine, 23 Ludy Cash MD Work Phone: [facility] Payers DatePayer CategoryPayerPolicy [id number] Health InsuranceDEFORMERLY [facility] H[facility] [id number]-[id number] (Managed Care) [id number] 2020MedicareHUMANA MEDICARE HUMANA MEDICARE PPO [id number] 2019-Present [phone] [address] [place] [address] [id number] [id number] 2019Medicare O [facility] MEDICARE [id number] 2018Medicare [id number] Health [id number] 2.16.840.1.293921.3.5[id number] 2.16.840.1.715951.3.579.[id number] 2.16.840.1.051433.3.579.2.79508-49-7548Caopgzf84440224 2.16.840.1.680656.3.579.2.40900-30-3734Dterimq13000026 2.16.840.1.963383.3.579.2.353001-82-0283Xgtnmkp845457869 2.16.840.1.407872.3.579.2.97061-14-2211Sotaytq684667747 2.16.840.1.925942.3.579.2.01559-10-3284Uhhshnf6659446 2.16.840.1.168314.3.579.2.42375-86-9492Atsdcvf3690455 2.16.840.1.289441.3.579.2.93576-74-5321Foqksiu0472283 2.16.840.1.860376.3.579.2.59486-03-2708Whmegjt0497404 2.16.840.1.129037.3.579.2.62778-70-5516Lncefej9189015 2.16.840.1.781537.3.579.2.07527-57-1274Autocmg3941901 2.16.840.1.414414.3.579.2.66610-65-4054Juskvat4358827 2.16840.1.518043.3.579.2.35436-70-9076Foapcmo9694040 2.840.1.301559.3.579.2.73171-03-9231Xuknrkl12262466 2.16840.1.293106.3.579.2.428635-90-7987Rcyynyb131476361 2.840.1.725422.3.579.2.567693-64-0714Vqqoebx218998690 2.840.1.653000.3.579.2.044089-45-8033Krhhgqr310228240 2.840.1.833209.3.579.2.673319-69-2946Bpvvakf928897828 2.840.1.670123.3.579.2.837726-34-7252Ssdgfwj042552110 2.840.1.846341.3.579.2.442244-05-1109Xfsbdjs574425046 2.840.1.653002.3.579.2.281325-24-8593Pgrssyb388073797 2.840.1.369623.3.579.2.742447-96-0106Xewbxst253582216 2.840.1.050270.3.579.2.866504-67-0520Xqthfsw961447802 2.840.1.014936.3.579.2.096308-40-6317Ipalnzw12953528 2.840.1.419866.3.579.2.028793-20-6949Hnffpvz77496512 2.840.1.965058.3.579.2.896003-35-8492Zlkelye61658716 2.16.840.1.332358.3.579.2.685335-12-8685Ufrtowz08666358 2..1.183629.3.579.2.570575-61-2335Awuoqca64246411 2..1.852552.3.579.2.768158-57-4385Olqgshu0763644 2..1.412505.3.579.2.605189-91-2434Ilkwpjr9582149 2..1.732758.3.579.2.956524-11-9511Kozdqet6003292 2..1.823840.3.579.2.745773-98-7593Zdoimyd7180831 2..1.323182.3.579.2.687984-85-0319Qoezucr7892353 2..1.054578.3.579.2.444297-09-1107Kkhrjdv0108574 2..1.489048.3.579.2.647125-54-7020Odkuobs0198295 2..1.955148.3.579.2.422876-52-3427Iwgylxi1006596 2..1.983254.3.579.2.503058-17-0785Mqgrssf4155157 2..1.116953.3.579.2.481938-14-5867Seayutd5730979 2..1.963181.3.579.2.064735-64-2524Twqhcia Health DcllhsaewU01408319Gqhedln UnknownHCAP/HFA/FAP [id number] l43v2z45-000u-2486-1289-z884230890f7Xtgntsl [id number] 2.840.1.667454.3.579.2.531 Social History DateTypeDetailFacilityStart: 07-27-2020 End: 71-96-5499Qolsfty smoking status NHISSmokes tobacco dailyRegency Hospital [facility] East Start: 72-21-9219Lnylvej of tobacco useCigarette SmokerCleveland Clinic [facility] Hospitaltart: 07-27-2020 End: 09-94-4987Kcyjizmdcw smoked current (pack per day) - Lahuqfji9Gwdqetnru ClinicComment on above:1 pack of cigarettes every 4-5 days;quit 05/22/22;Start: 07-27-2020 End: 92-12-7291Sovhftq use and exposureSmokeless tobacco non-userCleveland Clinic [facility] Hospitaltart: 07-30-2021 End: 08-73-2005Zvgrpku intakeCurrent drinker of alcohol (finding)[facility] Hospitaltart: 79-51-0214Gskwilh SDOH Alcohol Commentnot weeklyRegency Hospital [facility] East Start: 06-11-2021 End: 26-75-0588Xvcfszp Commentdown to 05/13 ppdCleveland Clinic [facility] Lodi Hospitaltart: 1960 Sex Assigned At BirthNot on fileCleveland Clinic [facility] General L[facility] Hospitaltart: 02-18-2021 End: 70-52-2880Hcwdtvxd to SARS-CoV-2 (event)Not sureRegency Hospital Cleveland EastHistory of tobacco usePassive smokerCleveland Clinic [facility] Hospitaltart: 09-16-2022 End: 82-37-8359Vfyaqkj use panelCleveland Clinic [facility] Hospitaltart: 00-72-1605Zfpay Depression Screening Bpcwoypgym6Opvzkppai ClinicStart: 05-06-2023 End: 40-49-9165Yxrciqg intakeLifetime non-drinker (finding)[facility] Work Phone: Start: 71-15-1033Hnlgxtx smoking status NHISSmoker (finding)[facility]: 92-34-6326Pnv Assigned At MaleSumma Healthtart: 89-07-1792Asgvoqq Commentrarely [facility] Hospitaltart: 08-97-3373Zvimmgn Ymvtjrb51-41 cigarettes a dayNOMS HealthcareStart: 69-02-9572Dxppwpo CommentCaffine intake: [facility] Start: 82-24-0662Dabumnr smoking status NHISEx-smokerCleveland Clinic [facility] Hospitaltart: 91-45-6794Jqpsrvs CommentQuit 06/12/24[facility] Hospitaltart: 11-02-2023 End: 59-87-0320Mxpvozbvy beverage intakeEx-drinker (finding)[facility] [employer] [facility]art: 10-00-4844Csviaog Comment1 pack every 5 days reported 08/15/[address] [facility] [employer] [facility] Hospitaltart: 01-28-4405Oqvldmr Comment01/19/18, sober as can be [facility] Ihaveu.comtart: 62-08-2224RotNlxw (finding)[facility] [employer] [facility] [employer] Procedure CodeEquipment CodeEquipment Original TextEquipment IdentifierDatesStnt [facility] [employer] [id number] Rpl [id number] - [id number] FDAStart: 39-20-6127Hopw [facility] Zitra.coma [id number] Rpl [id number]+Cmt - [id number] - [id number]: 09-28-2019 Functional Status JqpqMdizbixcrkEopeuqFcvxaoba41-36-2841HQG-4UAF7EIEIHZ Mild (5-9)[place] [address] DO Work Phone: [phone] you deaf, or do you have serious difficulty hearingNo 06/28/2021 12:57 PM EST Loree Mobley RN [facility] HospitalBoxukx82-35-8313Wia you blind, or do you have serious difficulty seeing, even when wearing glassesNo 06/28/2021 12:57 PM Loree Matias RN No [facility] EastErclif30-15-6129Cq you have serious difficulty walking or climbing stairsNo 06/28/2021 12:57 PM Loree Matias RN [facility] 16-08-0552Or you have difficulty dressing or bathingNo 06/28/2021 12:57 PM Loree Matias RN [facility] HospitalOzthtz96-73-5850Ustzosh of a physical, mental, or emotional condition, do you have difficulty doing errands alone such as visiting a physician's office or shoppingNo 06/28/2021 12:57 PM Loree Matias RN [facility] Mental Status CfamKoazbjdhtrJdachzHzbbmyhq30-88-6776Geqrxjv of a physical, mental, or emotional condition, do you have serious difficulty concentrating, remembering, or making decisionsNo 06/28/2021 12:57 PM Loree Matias RN [facility] Clinical Notes 11-27-2014 to 02-21-2025 Note Date & YxxaXnjxVhqnyhto52-04-8156 NoteHNO ID: [id number] Author: Kathrine CARPENTER MD Service: ? 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 INTERVAL HISTORY: Patient recently seen at local emergency room due to issues with fatigue and generalized weakness for 2 weeks significant. He has also had increasing lower back pain for the last 4 to 6 weeks, and has not been eating as much due to difficulty with pain. He denies headache or dysphagia. Denies shortness of breath. CT lumbar spine 02/06/2025: Chronic L1 vertebral body compression deformity. PET/CT 12/15/2023: IMPRESSION: HEAD/NECK: * No FDG [...] skin irritation no breakdown PHYSICAL EXAM: VS: 02/21/25 1615 BP: 115/78 Pulse: 107 Resp: 16 Temp: 36.3 ?C (97.4 ?F) SpO2: 97% Weight: 49.5 kg (109 lb 2 oz) KPS: 70 General Appearance: Well appearing, alert, in no acute distress, well-hydrated, well nourished.. 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 Slight edema upper posterior right neck without evidence of infection or erythema. Oropharynx: Evidence of thrush. Neck: Mild to moderate fibrosis right neck stable. No suspicious nodularity, skin with patchy hypopigmentation. Lungs: Clear to auscultation. No wheezing, rhonchi, rales. Neuro: Alert and oriented x3. No cranial nerve deficits appreciable.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 12:23 PM EDT Avis already sent a request for FU on this patient. She advised FU in [place]. * Telephone Encounter - Matilde Biggs CMA - 07/26/2024 12:23 PM EDT Scheduled tele-visit as it looks like [facility] is fully booked. documented in this encounterSub[facility] Telephone encounter Note* Telephone Encounter - Deisy Justin - 07/26/2024 12:23 PM EDT What is the reason for the call? [facility] called to schedule appt in STROKE unit. If appointment requested, what is the reason for the appointment? STROKE Is there a referral in the chart? No Were they seen in the hospital? Yes What hospital were they seen at? [facility] What is a good call back number? Call patient back: [phone] [facility]03-25-2025 Telephone encounter Note* Telephone Encounter - EMILIE Cheng - 07/26/2024 12:23 PM EDT Avis already sent a request for FU on this patient. She advised FU in [place]. [facility] Work Phone: 1(116) 162-783203-25-2025 Telephone encounter Note* Telephone Encounter - Matilde Biggs CMA - 07/26/2024 12:23 PM EDT Scheduled tele-visit as it looks like [facility] is fully booked. 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 Slight edema upper posteriorright neck without evidence of infection or erythema. [...] oropharynx, 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, P5Ty0E4, with recurrence right neck status post right radical neck dissection and salvage right neck radiation completed September 26, 2021. Doing fairly well. No evidence of recurrence. Stable right neck soft tissue changes from prior radiation treatment/retreatment. Continue conservative care. Plan to see patient back in 6 months. Signed by: Kathrine Carpenter MD cc: Gildardo Lacy MD (Dr) [address] [place] [address] Dr. Bagley documented in this encounterRegency [facility]02-18-2025 NoteHNO ID: [id number] Author: Kathrine CARPENTER MD Service: ? 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 [facility]02-07-2025 History of Present illness Narrative* Hebert Miguel MD - 06/10/2024 1:30 PM EST SHOULDER/ELBOW INITIAL CONSULT SERVICE DATE: 06/09/2024 PCP: Gildardo Lacy MD REFERRING PROVIDER: EMILIE Spicer [address] [facility] [address] [facility] [address] Consult requested for an opinion regarding the evaluation and treatment of the above. My final impression and recommendations will be communicated back to the requesting physician by way of the shared medical record or letter via [place] mail. CHIEF COMPLAINT: Right shoulder pain SUBJECTIVE HISTORY OF PRESENT ILLNESS: 63 year old male, who presents for the above CC. Patient is a byfro-axsy-vnggghqw 63-year-old male with past medical history of [...] tear and underwent repair. He states that hisrecovery he was recovering well but his family states that he was doing too much taking care of hisgirlfriend which required him lifting heavy objects and being very active. He denies any obvious instance where he reinjured his shoulder. States that he slowly began having pain and was reevaluated by his surgeon. Patient subsequently underwent a rotator cuff pair revision in February 2024. Patienthas had continued pain ever since without any relief. Significant difficulty performing daily activities. Of note he is a current 1 pack/day smoker. Has been smoking throughout the entire surgical cou rse. Denies any new numbness/ting distally. States has been taking his Percocet which has been taken for2 years for his back without relief. Has been taking Tylenol and fpxt-gsy-mrxaadd medications. Painis improved when he is lying on his [...] appear to have a large tendon stump thatappear to be repairable. After further discussion with [...] not hesitate to call the office with anyissues. Medical Decision Making: Medical Decision Making Level: 1 - N/A Hebert Miguel MD documented in this encounterRegency Hospital [facility]02-07-2025 NoteHNO ID: [id number] Author: HEBERT MIGUEL MD Service: ? Author Type: Physician Type: Progress Notes Filed: 06/10/2024 17:06 Note Text: SHOULDER/ELBOW INITIAL CONSULT SERVICE DATE: 06/09/2024 PCP: Gildardo Lacy MD REFERRING PROVIDER: EMILIE Spicer [address] [place] [address] Consult requested for an opinion regarding the evaluation and treatment of the above. My final impression and recommendations will be communicated back to the requesting physician by way of the shared medical record or letter via US mail. CHIEF COMPLAINT: Right shoulder pain SUBJECTIVE HISTORY OF PRESENT ILLNESS: 63 year old male, who presents for the above CC. Patient is a amosv-ptdm-niafxdyl 63-year-old male with past medical history of [...] without relief. Has been taking Tylenol and adil-sou-zzamghd medications. Pain is improved when he is [...] as instructed as neede (more content not included)...[facility] 06-10-2024 History of Present illness Narrative* Tayler Vick, RT(R) - 06/10/2024 12:30 PM EST Radiology Service Progress Note PATIENT NAME: Alejo Floyd DATE OF SERVICE: June 10, 2024 TIME: 2:42 PM PATIENT IDENTITY VERIFICATION COMPLETED USING TWO (2) IDENTIFIERS: Name and Date of confirmedby patient verbally. FALL SCREENING: Has the patient had 2 falls in the last year or 1 fall with injury or currently using an Ambulatory Assistive Device (Walker, Cane, Wheelchair, Crutches, etc.)? No PATIENT GENDER DATA: Assigned male at PATIENT RELEVANT IMPLANT DATA REVIEWED: Not Applicable PATIENT PRESENTS WITH AN IMPLANTABLE OR ATTACHED WEB WORKER: No RADIOLOGY DEPARTMENT: General X-ray: Exam(s) Completed: Upper Extremity X- Ray(s): Shoulder, AP / TRUE AP / VELPEAU right PERIPHERAL IV DATA: Not applicable SIGNED BY: RT Luis(Phil) June 10, 2024 2:42 PM documented in this encounterRegency [facility]02-07-2025 NoteHNO ID: [id number] Author: TAYLER VICK RT(R) Service: Radiology Author [...] PATIENT PRESENTS WITH AN IMPLANTABLE OR ATTACHED WEB WORKER: No RADIOLOGY DEPARTMENT: General X-ray: Exam(s) Completed: Upper Extremity X-Ray(s): Shoulder, AP / TRUE AP / VELPEAU right PERIPHERAL IV DATA: Not applicable SIGNED BY: RT Luis(R) June 10, 2024 2:42 PMCU[facility]-29-2025 History of Present illness Narrative* Gildardo Lacy MD - 06/01/2024 1:51 PM ESTAssociated Problem(s): COPD (chronic obstructive pulmonary disease) (CMS/HCC) Symptoms stable and continue inhalers. * Gildardo Lacy MD - 06/01/2024 1:50 PM ESTAssociated Problem(s): Tongue cancer (CMS/HCC) Follow with oncology. * Gildardo Lacy MD - 06/01/2024 1:49 PM ESTAssociated Problem(s): Unsteady gait Worsening symptoms and weakness in legs. Very unsteady when up and moving. Will order rolling walker with seat to help complete ADLs around the house. * Gildardo Lacy MD - 06/01/2024 1:49 PM ESTAssociated Problem(s): Chemotherapy- induced peripheral neuropathy ([facility]) Worsening symptoms and weakness in legs. Very unsteady when up and moving. Will order rolling walker with seat to help complete ADLs around the house. * Gildardo Lacy MD - 06/01/2024 1:30 PM EST Images from the original note were not [...] house due to symptoms. Legs starting to giveout and worried will hurt self next time [...] ADLs around the house. documented in this encounterCarondelet [id number] Telephone encounter Note* Telephone Encounter - Gildardo Lacy MD - 05/26/2024 11:44 AM EST [facility] [id number] Miscellaneous Notes* Telephone Encounter - Gildardo Lacy MD - 05/26/2024 11:44 AM EST documented in this [facility]01-21-2025 History of Present illness Narrative* EMILIE Spicer - 05/24/2024 11:15 AM EST Images from the original note were not included. HISTORY OF PRESENT ILLNESS: POST OP PT Alejo Floyd is an 63 y.o. @ male. (EST PT) S/P (R) SHOULDER SCOPE 02/09/24 (3 MTHS 2 WKS) P/O MRI [facility] 05/20/24 PT [facility]-ON HOLD FLARE UP OF PAIN EARLY 04/2024. DENIES INJURY. CONSTANT PAIN ANTERIOR SHOULDER AND AROUND SCAPULA. PAIN 7/10 TODAY, GOES HIGHER THE DAY GOES ON. [...] MR shoulder right [place] [address] Magnetic Resonance Report Signed Patient: ALEJO FLOYD MR#: [id number] : 1960 Acct:[id number] Age/Sex: 63 / M ADM Date: 05/20/24 Loc: MRI Attending Dr: Cassie PHAN Ordering Physician: Cassie Hood Date of Service: 05/20/24 Procedure(s): MR shoulder RT wo con Accession Number(s): [id number] cc: Cassie Hood; Gildardo Lacy M.D. [place] [address] Patient Name: ALEJO FLOYD MRN: [facility]:[id number] date: 1960 Sex: M Assigned Patient Location: MRI Current Patient Location: MRI Accession/Order Number: [id number] Exam Date: 05/20/2024 09:45 Report Date: 05/20/2024 [...] By: Papito Lucero M.D. Signed By: 05/20/24 1502 DD/ 1459 TD/TT: Vp Customer Service: Procedures Orders Placed This Encounter Procedures Ambulatory [...] second time. He noted increased pain in earlyDecember. During a follow-up at the end of April, he exhibited limited range of motion and some weakness. There is concern for deformity in the anterior chest wall, which may be post-radiation changes from prior cancer treatment. He has notable weakness with the rotator cuff, and an MRI performed at [facility] confirms retraction and tear. The case was discussed with Dr. Wade regarding surgical and nonsurgical treatment. He is in moderate to significant pain daily with his shoulder, and Dr. Wade is recommending evaluation by a shoulder specialist for potential reverse total shoulder.He is agreeable with referral and prefers [facility] as he has had cancer treatment through them in the past. He can not recall an injury that caused this to happen but was doing well initiallypostop until early April when symptoms abruptly started. The physical therapist had concerns that he had missed some sessions and had to leave some sessions early secondary to not feeling well during his postoperative period. A referral will be placed to the [facility] for further evaluation and treatment. His MRI at the [facility] has been pushed to the PACS system for [facility]. PROCEDURE The patient underwent right shoulder arthroscopy with repair of the rotator cuff. Questions answered in laymen terms at the bedside. The diagnosis, home exercise plan and any ongoing restrictions/ recommendations reviewed. If unable to be reached in office, I recommend evaluation at nearest Emergency Room if any symptoms worsened or new symptoms develop for requiring urgent evaluation. documented in this encounterCarondelet [id number] Telephone encounter Note* Telephone Encounter - JOSE Alvarado - 05/12/2024 3:33 PM EST Left msg for Cheryle stating that the order is for [facility]. Our referral dept did precert for [facility] for some reason. I told Cheryle she will have to just call the insurance company and have them change the Facility. She will call back if any additional info is needed [facility] [id number] Miscellaneous Notes* Telephone Encounter - JOSE Alvarado - 05/12/2024 3:33 PM EST Left msg for Cheryle stating that the order is for [facility]. Our referral dept did precert for [facility] for some reason. I told Cheryle she will have to just call the insurance company and have them change the Facility. She will call back if any additional info is needed * Telephone Encounter - Shruthi Lira - 05/12/2024 9:25 AM EST Cheryle at [facility] left vm returning call from Maggi. She stated that we need to change the order to TB instead of noms. Please call Cheryle back at [phone] ext [phone]. documented in this encounterCarondelet [id number] Telephone encounter Note* Telephone Encounter - Shruthi Lira - 05/12/2024 9:25 AM EST Cheryle at [facility] left vm returning call from Maggi. She stated that we need to change the order to [facility] instead of [facility]. Please call Cheryle back at [phone] ext [phone]. NOMS [id number] History of Present illness Narrative* EMILIE Spicer - 05/06/2024 11:15 AM EST Images from the original note were not included. HISTORY OF PRESENT ILLNESS: POST OP PT Alejo Floyd is an 63 y.o. @ male. (EST PT) S/P (R) SHOULDER SCOPE 02/09/24 (12WKS 3DAYS) PT NOTES THAT HE IS IN A LOT OF PAIN. ANTERIOR SHOULDER PAIN. NOTES THAT IT IS SOMETIMES AT THE TOPOF THE SHOULDER BLADE. 7/10 ON THE PAIN SCALE TODAY. PHYSICAL THERAPY DONE 2 TIMES A WEEK IN [place]. DENIES SWELLING. DENIES N/T. PT IS TAKING [...] symptoms. Follow-up with Dr. Wade pending MRI resultsfor further discussion of symptoms. PROCEDURE The patient underwent right shoulder arthroscopy and rotator cuff repair. Questions answered in laymen terms at the bedside. The diagnosis, home exercise plan and any ongoing restrictions/ recommendations reviewed. If unable to be reached in office, I recommend evaluation at nearest Emergency Room if any symptoms worsened or new symptoms develop for requiring urgent evaluation. documented in this encounterCarondelet [id number] Telephone encounter Note* Telephone Encounter - Gildardo Lacy MD - 04/21/2024 4:48 PM EST [facility] [id number] Miscellaneous Notes* Telephone Encounter - Gildardo Lacy MD - 04/21/2024 4:48 PM EST documented in this encounterCarondelet [id number] History of Present illness Narrative* Gildardo Lacy MD - 04/12/2024 1:41 PM ESTAssociated Problem(s): Medicare annual wellness visit, subsequent Reviewed labs. Discussed proper diet and regular aerobic exercise. Need aerobic exercise 5-6 days aweek for 30 minutes at a time. Smaller portions and limit total calories. Colonoscopy every 10 years. Tetanus every 10 years. Advised not to smoke. Discussed daily Aspirin therapy. * Gildardo Lacy MD - 04/12/2024 1:15 PM EST Images from the original note were not [...] or 2 views left documented in this encounterCarondelet [id number] Telephone encounter Note* Telephone Encounter - Nathaly Biggs APRN.CNP - 04/04/2024 11:48 AM EST The following approved medication requests have been transmitted electronically. Requested Prescriptions Signed Prescriptions Disp Refills megestrol (MEGACE) 400 mg/10 mL (40 mg/mL) suspension 480 mL 1 Sig: take 20 milliliters by mouth once daily Authorizing Provider: NATHALY BIGGS APRN.CNP [facility]12-02-2024 Miscellaneous Notes* Telephone Encounter - Nathaly Biggs APRN.CNP - 04/04/2024 11:48 AM EST The following approved medication requests have been transmitted electronically. Requested Prescriptions Signed Prescriptions Disp Refills megestrol (MEGACE) 400 mg/10 mL (40 mg/mL) suspension 480 mL 1 Sig: take 20 milliliters by mouth once daily Authorizing Provider: NATHALY BIGGS APRN.[employer]CH[employer]ER documented in this encounterRegency Hospital [facility]11-20-2024 History of Present illness Narrative* EMILIE Spicer - 03/23/2024 11:00 AM EST Images from the original note were not [...] for requiring urgent evaluation. documented in this encounterCarondelet [id number] History of Present illness Narrative* Gildardo Lacy MD - 02/29/2024 10:15 AM EDTAssociated Problem(s): COPD (chronic obstructive pulmonary disease) ([facility]) Recent exacerbation but improved. Resume breo and use albuterol PRN. * Gildardo Lacy MD - 02/29/2024 9:45 AM EDT Images from the original note were not included. Subjective Patient ID: Alejo Floyd is a 63 y.o. male who presents for Follow-up (Er f/u). ER follow up from 02/17 for COPD exacerbation. Developed severe SOB and chest tightness. Weston like not able to take deep breath [...] cough and sputum in am. Not on breofor months. Review of Systems Constitutional: Negative for [...] This Visit COPD (chronic obstructive pulmonary disease) ([facility]) - Primary Recent exacerbation but improved. Resume breo and use albuterol PRN. Relevant Medications Fluticasone Furoate-Vilanterol (Breo Ellipta) 100-25 MCG/ACT aerosol powder albuterol (2.5 MG/3ML) 0.083% nebulizer solution Other Visit Diagnoses Need for immunization against influenza Relevant Orders Flu vaccine greater than or equal to 3 years old, preservative free IM (Completed) documented in this encounterCarondelet [id number] History of Present illness Narrative* EMILIE Spicer - 02/23/2024 11:00 AM EDT Images from the original note were not [...] elbow wrist and fingers in all anatomic planeswith 5 out of 5 strength on the [...] pt would like to do therapy at [facility]... therapy order given.. pt verbalized he [...] for requiring urgent evaluation. documented in this encounterCarondelet [id number] Instructions* Patient Instructions* EMILIE Spicer - 02/23/2024 11:00 AM EDT [...] call Therapy facility to schedule as soon aspossible documented in this [facility]10-07-2024 Telephone encounter Note* Telephone Encounter - Jesse George NP - 02/08/2024 6:36 PM EDT Post op pain rx. PDMP reviewed [facility] Work Phone: 1(898) 576-514310-07-2024 Miscellaneous Notes* Telephone Encounter - Jesse George NP - 02/08/2024 6:36 PM EDT Post op pain rx. PDMP reviewed documented in this [facility]10-01-2024 History of Present illness Narrative* EMILIE Spicer - 02/02/2024 9:30 AM EDT Images from the original note were not [...] Hx of transient ischemic attack (TIA) (last ~2016) Incisional hernia Major depressive disorder (CMS/HCC) Mass [...] surgery received. All questions answered and proposed surgeryscheduled. (R) SHOULDER SCOPE 02/08 @SABRA SORIANO INSTRUCTIONS GIVEN TODAY 02/01 @9:30[facility] DR. LACY CLEARANCE ; OBTAINED ULTRASLING GIVEN TODAY ARTHREX NOTIFIED PA APPROVED ([id number]) Patient presents today for fitting of right L3670 Shoulder Orthosis, Acromioclavicular, Prefabricated, Off the Shelf today. Brace is used to immobilize and increase stability of the shoulder joint toallow for full and complete healing. Fitting and adjustments were done under physician order and supervision. Patient was placed in the brace and all straps were adjusted for proper fit. Brace was dispensed to the patient and [employer] Patient Agreement was completed and signed. Warranty informationwas given and explained to the patient with good understanding. Proper care and fitting was also explained to the patient with good understanding. Follow up for 02/22 @11AM W/[place] IN [place]. documented in this [facility]09-12-2024 Telephone encounter Note* Telephone Encounter - Ne Tomlin MA - 01/14/2024 9:15 AM EDT LEFT VM WITH DR. LACY'S OFFICE WE NEED CLEARANCE PRIOR TO SCHEDULING. CALLED PATIENT AND INFORMED HIM. HE IS UNDERSTANDING THAT ONCE WE OBTAIN CLEARANCE I WILL CALL TO SCHEDULE SX. [facility]let [id number] Miscellaneous Notes* Telephone Encounter - Ne Tomlin MA - 01/14/2024 9:15 AM EDT LEFT VM WITH DR. LACY'S OFFICE WE NEED CLEARANCE PRIOR TO SCHEDULING. CALLED PATIENT AND INFORMED HIM. HE IS UNDERSTANDING THAT ONCE WE OBTAIN CLEARANCE I WILL CALL TO SCHEDULE SX. * Telephone Encounter - Ana Powell - 01/11/2024 2:33 PM EDT Patient called regarding a scheduling surgery? documented in this encounterCarondelet [id number] Telephone encounter Note* Telephone Encounter - Ana Powell - 01/11/2024 2:33 PM EDT Patient called regarding a scheduling surgery? [facility] [id number] History of Present illness Narrative* Jr. Martin Chen, - 12/28/2023 2:00 PM EDT Images from the original note were not included. HISTORY OF PRESENT ILLNESS: EST PT Alejo Floyd is an 63 y.o. @ male. EST PT RECHECK RT SHOULDER- HERE FOR MRI RT SHOULDER RESULTS [facility] 12/22/23 XRAY RT SHOULDER EPIC 11/02/23 MRI RT SHOULDER 12/22/23 [facility] S/P (R) SHOULDER SCOPE 06/27/22 - DR CHEN S/P RT SHOULDER NICOLE 11/28/22- DR CHEN CORTISONE INJ 11/02/23 S/P MDP 10/27/22 S/P PHYSICAL THERAPY [facility] PREVIOUS PHYSICAL THERAPY @ [facility] ; S/P SCOPE CONTINUES TO HAVE [...] and discussed (R) shoulder MRI results with patientat bedside : rotator cuff tear. After examination of his right shoulder today we have discussed both surgical and nonsurgical intervention, with the risks and benefits of both. Patient is requesting a (R) shoulder scope as the pain is the pain affecting his ADL's - increased pain with motion. He isunderstanding if a repair is made he could [...] intervention. Martin Chen D.O. 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 Slight edema upper posteriorright neck without evidence of infection or erythema. [...] oropharynx, 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, [id number], with recurrence right neck status post right radical neck dissection and salvage right neck radiation completed September 26, 2021. No clinical radiographic evidence of recurrence. Stable soft tissue changes from prior radiation treatments. Patient will continue conservative care of his main issues on the right which seem to haveimproved. Continue surveillance plan to see patient back in 6 months. Signed by: Kathrine Carpenter MD cc: Gildardo Lacy MD ([facility]) [address] [place] [address] Dr. Bagley documented in this encounterRegency Hospital [facility]08-19-2024 History of Present illness Narrative* Esdras Cash MD - 12/21/2023 9:38 PM EDT PATIENT NAME: Alejo Floyd DATE: 12/22/2023 PRIMARY [...] PCP. His acute pulmonary symptoms resolved. He apparentlyalso developed symptoms suggesting recurrent SBO. Without intervention his acute GI symptoms resolved. On follow-up today he actually feels quite well. No unusual pain. Energy and appetite are returningto baseline. He continues to have shortness of [...] No date: COPD (chronic obstructive pulmonary disease) ([facility]) No date: Depression No date: Other emphysema ([facility]) No date: Smoking greater than 40 pack [...] reducible as is ventral hernia. BS present X4 quadrants. No rebound or guarding on exam [...] for carcinoma. 07/17/2020 Base of tongue biopsy ([facility]) Invasive squamous cell carcinoma HPV negative LABS: [...] FDG avid osseous lesion. 2021 CT abdomen/pelvis ([facility]) Distal small bowel obstruction with fluid-filled dilatation [...] FDG avid neoplastic process.. 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 PET scan obtained 08/10/2020 revealed no evidence of distant metastases. PEG tube was placed on 08/08/2020 for enteral nutrition. First-line treatment with definitive chemoradiation consisting of radiation therapy Thursday throughThursday plus cisplatin 40 mg/m2 weekly started on 08/14/2020. The patient completed cisplatin cycle 7on 09/25/2020. Radiation finished on 09/28/2020 (7000 cGy in 35 fractions). The patient tolerated histreatment relatively well and had a complete clinical [...] cell carcinoma. The patient was referred to [facility] ENT (Dr. Olivarez), and subsequently underwent [...] line therapy the patient has had no evidenceof cancer recurrence. Most recent PET scan 12/15/2023 negative. At this time would recommend continued routine observation. He will follow-up with radiation oncology and ENT as scheduled. Per patient request I did not schedule a return visit with me, but would behappy to see him in the future if I can be of assistance. 2. Chronic obstructive pulmonary disease (HCC) - ICD9: 496, ICD10: J44.9 The patient has a long history of tobacco use. He has chronic shortness of breath secondary to mildto moderate COPD. Continue management per PCP/pulmonary. Unfortunately [...] on current medications. Continue management per PCP. Esdrsa Cash MD documented in this encounterRegency Hospital [facility]08-13-2024 History of Present illness Narrative* Marilee Diamond RN - 12/15/2023 9:00 AM EDT Radiology Service Progress Note DATE OF SERVICE: [...] creatinine assay has traceable calibration to isotope dilution- mass spectrometry. Refer to KDIGO guidelines for clinical interpretation. In patients with unstable renal function, e.g. those with acute kidney injury, the eGFRmay not accurately reflect actual GFR. eGFR- Date [...] DATE: December 15, 2023 TIME: 9:28 AM * Cynthia Meadows, RT(R) - 12/15/2023 9:00 AM EDT RADIOLOGY SERVICE PROGRESS NOTE SERVICE DATE: 12/15/2023 SERVICE TIME: 9:33 AM PATIENT IDENTITY VERIFICATION COMPLETED USING TWO (2) STANDARD IDENTIFIERS: Name and Date of confirmed by patient verbally POST EXAM PIV STATUS: Discontinued PROCEDURE TYPE: NM INJECT: PET/CT BODY SCAN. 6.8 mCi F18 FDG. No other medications given.. ADMINISTRATION TIME: 919 PATIENT DISCHARGED TO: Ambulatory patient, left NM department area. A Diagnostic radioactive procedure has taken place, with no further precautions necessary other than routine body substance precautions. More information regarding radiation safety can be found usingthis link: [email or web address]%[email or web address]%20Medicine%[email or web address] SIGNATURE: RT Jose Alfredo(R) PATIENT NAME: Alejo Floyd DATE: December 15, 2023 TIME: 9:33 AM PAGER/CONTACT #: documented in this encounterRegency Hospital [facility]07-16-2024 History of Present illness Narrative* Carmen Neely MD - 11/17/2023 10:20 AM EDT Subjective Alejo Floyd is a 63 y.o. [...] 1 tablet (50 mg) by mouth once daily.,Disp: , Rfl: oxyCODONE-acetaminophen (Percocet) 5-325 mg tablet, [...] Rfl: Assessment/Plan 1. PVD (peripheral vascular disease) ([facility]) Follow Up In Cardiology 2. Hyperlipidemia, unspecified [...] my direction and personally dictated by me. Ihave reviewed the chart and agree that the record accurately reflects my personal performance of the history, physical exam, discussion and plan. documented in this encounterThe [facility] Work Phone: 1(518) 184-808507-16-2024 Instructions* Patient Instructions* Sweetie Hidalgo LPN - 11/17/2023 10:20 AM [...] gain to the patient. 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 No evidence of recurrence. Stable postradiation soft tissue effects. Continue conservative management including Aquaphor for the skin irritation. Otherwise plan for continued close follow-up and surveillance. Signed by: Kathrine Carpenter MD cc: Gildardo Lacy MD ([facility]) [address] [place] [id number] Bagley documented in this encounterRegency Hospital [facility] East04-15-2024 History of Present illness Narrative* Esdras Cash MD - 08/17/2023 11:05 PM EDT PATIENT NAME: Alejo Floyd DATE: 08/18/2023 PRIMARY [...] reducible as is ventral hernia. BS present X4 quadrants. No rebound or guarding on exam [...] for carcinoma. 07/17/2020 Base of tongue biopsy ([facility]) Invasive squamous cell carcinoma HPV negative LABS: [...] FDG avid osseous lesion. 2021 CT abdomen/pelvis ([facility]) Distal small bowel obstruction with fluid-filled dilatation [...] FDG avid neoplastic process.. 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 PET scan obtained 08/10/2020 revealed no evidence of distant metastases. PEG tube was placed on 08/08/2020 for enteral nutrition. First-line treatment with definitive chemoradiation consisting of radiation therapy Thursday throughThursday plus cisplatin 40 mg/m2 weekly started on 08/14/2020. The patient completed cisplatin cycle 7on 09/25/2020. Radiation finished on 09/28/2020 (7000 cGy in 35 fractions). The patient tolerated histreatment relatively well and had a complete clinical [...] cell carcinoma. The patient was referred to [facility] ENT (Dr. Olivarez), and subsequently underwent [...] the patient was not feeling well, with c omplaints of severe weakness and weight loss. Repeat [...] has chronic shortness of breath secondary to mildto moderate COPD. Continue management per PCP/pulmonary. Unfortunately [...] PCP. Esdras Cash MD documented in this encounterRegency Hospital Cleveland East02-16-2024 Miscellaneous Notes* Telephone Encounter - Nathaly Biggs APRN.CNP - 06/19/2023 2:00 PM EST The following approved medication requests have been transmitted electronically. Requested Prescriptions Signed Prescriptions Disp Refills megestrol (MEGACE) 400 mg/10 mL (40 mg/mL) suspension 480 mL 1 Sig: take 20 milliliters by mouth once daily Authorizing Provider: NATHALY BIGGS APRN.CNP documented in this encounterRegency Hospital [facility] East01-03-2024 History of Present illness Narrative* Carmen Neely MD - 05/06/2023 10:40 AM EST Subjective Alejo Floyd is a 62 y.o. [...] 1 tablet (50 mg) by mouth once daily.,Disp: , Rfl: omeprazole (PriLOSEC) [address] [...] my name below, Arlette Negron LPN , Scrkamryn attest that this documentation has been prepared under the direction and in the presence of Carmen Neely MD. documented in this [facility] Work Phone: 1(523) 977-906401-03-2024 Instructions* Patient Instructions* Eve Lee LPN - 05/06/2023 10:40 AM [...] time of your visit. documented in this encounterThe [facility] of [facility] Work Phone: 1(581) 565-939010-13-2023 Miscellaneous Notes* Telephone Encounter - Judith Lorenz RN - 02/13/2023 1:41 PM EDT Patient notified and verbalized understanding. He stated he has spoken with Karuna in the past and is working on increased intake but has a lot of stress lately taking care of family members. He will see you as scheduled on 03/10/23. Meredith Lorenz RN * Telephone Encounter - Judith Lorenz RN - 02/13/2023 1:41 PM EDT ----- Message from Esdras Cash MD sent at 02/13/2023 7:45 AM EDT ----- Please inform the patient that his PET scan is essentially negative, with no signs of malignancy. Needs to be encouraged to increase his caloric intake to improve weight. 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 I will see him back as scheduled. documented in this encounterRegency Hospital [facility] East10-11-2023 History of Present illness Narrative* Cynthia Meadows, RT(R) - 02/11/2023 12:45 PM EDT RADIOLOGY SERVICE PROGRESS NOTE SERVICE DATE: 02/11/2023 [...] information regarding radiation safety can be found using[employer] link: [email or web address] 20Diagnostic%20Nuclear%20Medicine%20Procedures.pdf SIGNATURE: RT Jose Alfredo(R) PATIENT NAME: Alejo Floyd DATE: February 11, 2023 TIME: 12:37 PM PAGER/CONTACT #: * Marilee Diamond RN - 02/11/2023 12:45 PM EDT Radiology Service Progress Note DATE OF SERVICE: [...] creatinine assay has traceable calibration to isotope dilution- mass spectrometry. Refer to KDIGO guidelines for clinical interpretation. In patients with unstable renal function, e.g. those with acute kidney injury, the eGFRmay not accurately reflect actual GFR. 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 Patient with recent weight loss, no obvious cause. Imaging with PET ordered. No clinical evidence of progression. Plan to see patient back after imaging. Signed by: Kathrine Carpenter MD cc: Gildardo Lacy MD (Dr) [address] [facility] [address] [place] [id number]. Bagley documented in this encounterRegency Hospital Cleveland East05-10-2023 History of Present illness Narrative* Farida Haynes RN - 09/10/2022 8:00 AM EDT Radiology Service Progress Note DATE OF SERVICE: [...] creatinine assay has traceable calibration to isotope dilution- mass spectrometry. Refer to KDIGO guidelines for clinical interpretation. In patients with unstable renal function, e.g. those with acute kidney injury, the eGFRmay not accurately reflect actual GFR. eGFR- Date [...] DATE: September 10, 2022 TIME: 8:18 AM * Cynthia Meadows RT(R) - 09/10/2022 8:00 AM EDT Radiology Service Progress Note PATIENT NAME: Alejo Floyd DATE OF SERVICE: September 10, 2022 TIME: 8:39 AM PATIENT IDENTITY VERIFICATION COMPLETED USING TWO (2) IDENTIFIERS: Name and Date of confirmedby patient verbally. FALL SCREENING: Has the patient [...] 10, 2022 8:39 AM documented in this encounterRegency Hospital [facility] East04-11-2023 Miscellaneous Notes* Telephone Encounter - Farida Haynes RN - 08/12/2022 1:45 PM EDT Please sign pended CRE for CT. Thank you, Farida documented in this encounterRegency Hospital [facility] East01-17-2023 History of Present illness Narrative* Esdras Cash MD - 05/20/2022 7:54 AM EST PATIENT NAME: Alejo Floyd DATE: 05/20/2022 PRIMARY CARE PHYSICIAN: Dr. Gildardo Lacy OTHER PHYSICIANS: Dr. Bagley, Dr. Carpenter, Dr. Olivarez Portions of this encounter note have been copied from the note from 02/18/2022 and has been updatedwhere appropriate, and reflect my current medical decision [...] reducible as is ventral hernia. BS present X4 quadrants. No rebound or guarding on exam [...] for carcinoma. 07/17/2020 Base of tongue biopsy ([facility]) Invasive squamous cell carcinoma HPV negative LABS: [...] FDG avid osseous lesion. 2021 CT abdomen/pelvis ([facility]) Distal small bowel obstruction with fluid-filled dilatation [...] FDG avid neoplastic process.. 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 PET scan obtained 08/10/2020 revealed no evidence of distant metastases. PEG tube was placed on 08/08/2020 for enteral nutrition. First-line treatment with definitive chemoradiation consisting of radiation therapy Thursday throughThursday plus cisplatin 40 mg/m2 weekly started on 08/14/2020. The patient completed cisplatin cycle 7on 09/25/2020. Radiation finished on 09/28/2020 (7000 cGy in 35 fractions). The patient tolerated histreatment relatively well and had a complete clinical [...] cell carcinoma. The patient was referred to [facility]NT (Dr. Olivarez), and subsequently underwent [...] has chronic shortness of breath secondary to mildto moderate COPD. Continue management per PCP/pulmonary. Unfortunately [...] acute nausea, vomiting and lower abdominal pain. Hesubsequently was seen at the [facility] emergency room on 2021 and transferred to [facility] for suspected small bowel obstruction secondary to an abdominal wall hernia. His acute symptoms resolved withIVF and bowel rest. The patient is aware that his symptoms may recur, in which case surgery may be indicated. Continue management per PCP. 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 Overall doing well. Radiographically and clinically without evidence of recurrence. Plan for follow-up in 3 months. Signed by: Kathrine Carpenter MD cc: Gildardo Lacy MD ([facility]) [address] [place] [id number] Bagley documented in this encounterRegency Hospital [facility]12-12-2022 History of Present illness Narrative* Farida Haynes RN - 04/14/2022 11:15 AM EST Radiology Service Progress Note DATE OF SERVICE: [...] creatinine assay has traceable calibration to isotope dilution- mass spectrometry. Refer to KDIGO guidelines for clinical interpretation. In patients with unstable renal function, e.g. those with acute kidney injury, the eGFRmay not accurately reflect actual GFR. eGFR- Date [...] DATE: April 14, 2022 TIME: 11:11 AM * Cynthia Meadows RT(R) - 04/14/2022 11:15 AM EST RADIOLOGY SERVICE PROGRESS NOTE DATE OF SERVICE: April 14, 2022 TIME OF SERVICE: 1129 EVENT: CONTRAST EXTRAVASATION / IV or MEDICATION INFILTRATE Type: Contrast (specify) - Omnipaque 300 followed by saline. Estimated Volume: 20 ml, Location: Right forearm. IV Gauge: 20. Method of Injection: Power Injector. Difficult IV access: No. Number of IV start attempts: 1. Cool compress given: Yes. Skin Assessment: (1) Skin blanched; edema <1 inch in any direction; cool to touch; with or withoutpain. Symptoms: Swelling/edema. Physician notified: none Treatment: Peripheral IV access discontinued and Cold compress. At Home instructions given to patient: Yes. 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 Patient doing well. No evidence of clinical recurrence. Recommend follow-up in 3 to 3 months, recommend CT neck and chest at that time. Signed by: Kathrine Carpenter MD cc: Gildardo Lacy MD ([facility]) [address] [place] [address] Dr. Bagley documented in this encounterRegency Hospital [facility]10-18-2022 Nurse Note* Alejo Griffiths - 02/18/2022 11:20 AM EDT Patient Identification confirmed: yes. Injection given and documented on JUL per provider order. Alejo Hoods documented in this encounterRegency Hospital [facility] East10-18-2022 History of Present illness Narrative* Esdras Cash MD - 02/18/2022 7:40 AM EDT PATIENT NAME: Alejo Floyd DATE: 02/18/2022 PRIMARY [...] he complained of atypical pain and swelling atthe base of his right neck near the [...] reducible as is ventral hernia. BS present X4 quadrants. No rebound or guarding on exam [...] for carcinoma. 07/17/2020 Base of tongue biopsy ([facility]) Invasive squamous cell carcinoma HPV negative LABS: [...] FDG avid osseous lesion. 2021 CT abdomen/pelvis ([facility]) Distal small bowel obstruction with fluid-filled dilatation [...] FDG avid neoplastic process.. 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 PET scan obtained 08/10/2020 revealed no evidence of distant metastases. PEG tube was placed on 08/08/2020 for enteral nutrition. First-line treatment with definitive chemoradiation consisting of radiation therapy Thursday throughThursday plus cisplatin 40 mg/m2 weekly started on 08/14/2020. The patient completed cisplatin cycle 7on 09/25/2020. Radiation finished on 09/28/2020 (7000 cGy in 35 fractions). The patient tolerated histreatment relatively well and had a complete clinical [...] cell carcinoma. The patient was referred to [facility] (Dr. Olivarez), and subsequently underwent [...] acute nausea, vomiting and lower abdominal pain. Hesubsequently was seen at the [facility] emergency room on 2021 and transferred to [facility] for suspected small bowel obstruction secondary to an abdominal wall hernia. His acute symptoms resolved withIVF and bowel rest. The patient is aware that his symptoms may recur, in which case surgery may be indicated. Continue management per PCP. 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 Still has some right-sided neck pain.In discomfort related to dry mouth. No other [...] oropharynx, 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, [id number], with recurrence right neck status post right [...] Kathrine Carpenter MD cc: Gildardo Lacy MD ([facility]) [address] [place] [address] Dr. Bagley documented in this encounterRegency Hospital [facility] East08-22-2022 History of Present illness Narrative* Cynthia Meadows RT(R) - 12/23/2021 9:00 AM EDT RADIOLOGY SERVICE PROGRESS NOTE SERVICE DATE: 12/23/2021 SERVICE TIME: 9:50 AM PATIENT IDENTITY VERIFICATION COMPLETED USING TWO (2) STANDARD IDENTIFIERS: Name and Date of confirmed by patient verbally POST EXAM PIV STATUS: Discontinued PROCEDURE TYPE: NM INJECT: PET/CT HEAD, NECK, BODY SCAN. 10.8 mCi F18 FDG. No other medications given.. ADMINISTRATION TIME: 901 PATIENT DISCHARGED TO: Ambulatory patient, left NM department area. A Diagnostic radioactive procedure has taken place, with no further precautions necessary other than routine body substance precautions. More information regarding radiation safety can be found usingthis link: [email or web address] SIGNATURE: RT Jose Alfredo(Phil) PATIENT NAME: Alejo Floyd DATE: December 23, 2021 TIME: 9:50 AM PAGER/CONTACT #: documented in this encounterRegency Hospital [facility] East07-26-2022 Miscellaneous Notes* Telephone Encounter - Anthony Weaver PA-C - 11/26/2021 2:58 PM EDT The following approved medication requests have been transmitted electronically. Signed Prescriptions Disp Refills diphenhydrAMINE 12.5 mg/5 mL lidocaine visc 2% MAALOX 200-200-20 mg/5 mL nystatin prednisoLONE 15 mg/5 mL oral liquid 1:1:1:1:1 (CPD) 240 mL 1 Sig: Take 5 mL by mouth every 6 hours as needed. Swish and swallow Authorizing Provider: ANTHONY WEAVER PA-C * Telephone Encounter - Azar Martino LPN - 11/26/2021 10:11 AM EDT Alejo called requesting a prescription for magic mouthwash. He has c/o continued sore and scratchy throat. He denies mouth sores or fever. He also c/o difficulty swallowing. He states he has lost someweight and is continuing to drink boost/ensure supplements. Documented weight appears to be stable for the last 2 months. PET scan scheduled 12/23/21, follow up with Dr. Carpenter 12/26/21 and follow up with Dr. Cash 01/16/22. If you are in agreement to prescribe magic mouthwash, Alejo would like to package pick up the prescription at our pharmacy tomorrow. Nathaly will you please address this encounter as Dr. Carpenter and Dr. Cash are both on vacation this week. Please advise. 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 Patient continues to well without clinical evidence of recurrence. He has some soft tissue changes related to radiation treatments but these are stable. Recommend further follow-up with PET scan in 4weeks. Signed by: Kathrine Carpenter MD cc: Gildardo Lacy MD ([facility]) [address] [place] [address] Dr. Bagley documented in this encounterRegency Hospital [facility] East06-15-2022 NoteMR#: [id number] I [facility] Pt. Name: Alejo Floyd Admitted: 09/19/2021 Discharged: 09/20/2021 Date of : 1960 Physician: Zarina Morgan M.D. DISCHARGE SUMMARY ADMISSION DIAGNOSIS: Small bowel obstruction. DISCHARGE DIAGNOSIS: Small-bowel obstruction, resolving. No consults. No procedures. HISTORY OF PRESENT ILLNESS: 61-year-old male presenting to [facility] as direct admission. The patient presented reporting [...] by: Zarina Morgan M.D. 10/16/2021 02:10 P Zarina Morgan M.D. I personally saw this patient on the day of the encounter, performed the womack portion(s) of the service and participated in the management and confirm the resident's documentation. Please note there may be an additional personal documentation from me. Date Dict: 10/15/2021/05:05 P/Hood Sepulveda PA-C Date Trans: 10/16/2021 07:27 A/mmo [id number] cc: Gildardo Lacy M.D. [address] [place] [address] History of Present illness Narrative* Rylee Wilhelm, RD - 10/04/2021 11:30 AM EDT Nutrition Therapy Reassessment This visit was performed [...] Dosing Weight: 75.4 kg Estimated kilocalorie needs: 5215-3258 kilocalories determined by 25-30 kcal/kg Estimated protein needs: 75-90 grams determined by 1.0-1.2 g/kg Dosing weight Estimated fluid needs: ~9087-4000 milliliters based on 1 mL per kcal [...] continues to consume small frequent meals and useONS two times per day. Pt reports diarrhea (loose, water stool) after consuming ONS with bkfst, bu states drinking uf he drinks it in the afternoon and/or evening he has no symptoms. Instructed pt tocontinue consuming in afternoon and/or evening and adjust time of day as needed based on symptoms. Pt verbalized understanding. Thank you for allowing me to participate in the care of this pt. NUTRITION FOCUSED PHYSICAL EXAM: Unable to perform exam due to patient unavailable, will re-attemptduring reassessment. Potential Signs of Inflammation: chronic condition [...] Wilhelm MS, RDN, LD documented in this encounterRegency Hospital [facility]06-02-2022 Nurse Note* Myesha Garcia MA - 10/03/2021 2:03 PM EDT Patient would like something for his diarrhea. Myesha Garcia MA documented in this encounterRegency Hospital [facility] East06-02-2022 History of Present illness Narrative* Esdras Cash MD - 10/03/2021 7:53 AM EDT PATIENT NAME: Alejo Floyd DATE: 10/03/2021 PRIMARY [...] reducible as is ventral hernia. BS present X4 quadrants. No rebound or guarding on exam [...] for carcinoma. 07/17/2020 Base of tongue biopsy ([facility]) Invasive squamous cell carcinoma HPV negative LABS: Hemoglobin (g/dL) Date Value 10/03/2021 10.6 06/28/2021 12.9 Hematocrit (%) Date Value 10/03/2021 32.9 06/28/2021 40.1 WBC (k/uL) Date Value 10/03/2021 4.96 06/28/2021 15.52 Platelet Count (k/uL) Date Value 10/03/2021 159 06/28/2021 398 RADIOLOGY/OTHER STUDIES: 2021 CT abdomen/pelvis ([facility]) Distal small bowel obstruction with fluid-filled dilatation [...] FDG avid neoplastic process.. 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 PET scan obtained 08/10/2020 revealed no evidence of distant metastases. PEG tube was placed on 08/08/2020 for enteral nutrition. First-line treatment with definitive chemoradiation consisting of radiation therapy Thursday throughThursday plus cisplatin 40 mg/m2 weekly started on 08/14/2020. The patient completed cisplatin cycle 7on 09/25/2020. Radiation finished on 09/28/2020 (7000 cGy in 35 fractions). The patient tolerated histreatment relatively well and had a complete clinical [...] cell carcinoma. The patient was referred to [facility] ENT (Dr. Olivarez), and subsequently underwent [...] I will see the patient back in 3months for follow-up. 2. Chronic obstructive pulmonary disease [...] acute nausea, vomiting and lower abdominal pain. Hesubsequently was seen at the [facility] emergency room on 2021 and transferred to [facility] for suspected small bowel obstruction secondary to an abdominal wall hernia. His acute symptoms resolved withIVF and bowel rest. The patient is aware that his symptoms may recur, in which case surgery may be indicated. Continue management per PCP. Esdras Cash MD CC: Dr. 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 Patient received concurrent chemotherapy consisting of weeklycarboplatin. The patient tolerated treatment well with mild radiation related dermatitis and fatigue as expected. No other issues. The patient was able to complete treatment as intended without breakinterruption or modification of prescription plan. The disease response will be assessed in clinic.The patient will be seen again in 2 weeks for post radiation follow-up. Staff Physician Сергей Carpenter M.D. / WST 2:14 PM Electronically Signed cc: Dr. Gildardo Bagley, Dr. Cash, Dr. Olivarez documented in this encounterRegency Hospital [facility] East05-25-2022 History of Present illness Narrative* Rylee Wilhelm RD - 09/25/2021 3:24 PM EDT Nutrition Therapy Progress Note RECOMMENDED MALNUTRITION DIAGNOSIS: [...] issues. Pt denies any N/V/D/C. Pt was recentlyd/c'd from [facility] for a SBO, no surgical intervention was required. Appetite appears good. Intakes are good. Pt continues to consume a varied diet and supplements withONS. Pt denies any current nutrition concerns or [...] Wilhelm MS, RDN, LD documented in this encounterRegency Hospital [facility]05-23-2022 Miscellaneous Notes* Telephone Encounter - Cynthia Cutler RN - 09/23/2021 3:07 PM EDT DISCHARGE CALL BACK Today's date: September 23, 2021 Notified of Pt discharge by: Call placed to [facility] for follow up. Patient discharged on 09/21/21 from [facility] to Home Primary Cancer Diagnosis: Oropharnxy Cancer Admitting Diagnosis: SBO Discharge Summary/SBAR reviewed: No - Requested from medical records Handoff Discussed with Transitional Dietary Internship: No, unavailable Psychosocial Risk Factors: None If [...] pain. Cynthia Cutler RN documented in this encounterRegency Hospital [facility] East05-23-2022 Miscellaneous Notes* Telephone Encounter - Cynthia Cutler RN - 09/23/2021 3:05 PM EDT FYI: Pt was dc'd home over the weekend. In today for follow up. Cris: Please scan hospital records from [facility]. Thanks! Cynthia Cutler RN * Telephone Encounter - Cynthia Cutler RN - 09/19/2021 9:21 AM EDT FYI: Pt transferred from [facility] ER to [facility]. Admitted w/ SBO. Spoke w/ his bedside nurse who reports the pt is scheduled for a small bowel follow through today to confirm placement of his NG tube. No additional treatment plans in place at this time. Clerical: Please cancel tomorrow's appointment. Thanks! Cynthia Cutler RN documented in this encounterRegency Hospital [facility]05-23-2022 History of Present illness Narrative* Esdras Cash MD - 09/23/2021 7:52 AM EDT PATIENT NAME: Alejo Floyd DATE: 09/23/2021 PRIMARY [...] ago with complaints of acute nausea, vomiting andlower abdominal pain. Because of his acute symptoms treatment was put on hold. He subsequently was seen at the [facility] emergency room on 2021 and transferred to [facility] for suspected small bowel obstruction. Apparently his symptoms resolved with IVF and bowel rest. He currently feels back to hisnormal self. Appetite is poor, but no nausea/vomiting [...] reducible as is ventral hernia. BS present X4 quadrants. No rebound or guarding on exam [...] for carcinoma. 07/17/2020 Base of tongue biopsy ([facility]) Invasive squamous cell carcinoma HPV negative LABS: [...] FDG avid neoplastic process.. 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 PET scan obtained 08/10/2020 revealed no evidence of distant metastases. PEG tube was placed on 08/08/2020 for enteral nutrition. First-line treatment with definitive chemoradiation consisting of radiation therapy Thursday throughThursday plus cisplatin 40 mg/m2 weekly started on 08/14/2020. The patient completed cisplatin cycle 7on 09/25/2020. Radiation finished on 09/28/2020 (7000 cGy in 35 fractions). The patient tolerated histreatment relatively well and had a complete clinical [...] cell carcinoma. The patient was referred to [facility] (Dr. Olivarez), and subsequently underwent [...] 08/12/2021. To date he has completed 5 cyclesof chemotherapy. When seen on 09/16/2021 the patient [...] final cycle of chemotherapy. I will see himback in 3 weeks for follow-up and labs, [...] MD CC: Dr. Bagley documented in this encounterRegency Hospital [facility]05-18-2022 Miscellaneous Notes* Telephone Encounter - Anthony Weaver PA-C - 2021 11:28 AM EDT Thank you for the update Anthony Weaver PA-C * Telephone Encounter - Cynthia Cutler RN - 2021 9:36 AM EDT FYI: Follow up call placed to pt. Still having abdominal pain, nausea, and vomiting. Notes pain is in his upper middle abdomen, just above his umbilicus. Denies diarrhea. Last BM was yesterday. States he getting ready to head to the ER. Report phoned to Dr Arana @ [facility] ER. Last office note and med list faxed to [phone]. Cynthia Cutler RN documented in this encounterRegency Hospital [facility]05-17-2022 Miscellaneous Notes* Telephone Encounter - Cynthia Cutler RN - 09/17/2021 11:25 AM EDT Pt notified of Anthony's recommendations and verbalizes understanding. Pt will call us if he decides to go to the ER. Cynthia Cutler RN * Telephone Encounter - Cynthia Cutler RN - 09/17/2021 11:21 AM EDT Additional Update: Spoke w/ pt for follow up. Reports his abdominal pain is a little less than itwas yesterday. Diarrhea has stopped. Cynthia Cutler RN * Telephone Encounter - Anthony Weaver PA-C - 09/17/2021 11:20 AM EDT If he is still not getting relief from antiemetics and still having abdominal pain, I highly recommend he go to ER for evaluation. Imaging likely needs done and the ER is appropriate for that. Anthony Weaver PA-C * Telephone Encounter - Katrin Arias RN - 09/17/2021 10:30 AM EDT Pt called in to cancel radiation for [...] to Anthony for any other recommendations. Katrin Arias RN documented in this encounterRegency Hospital [facility]05-16-2022 Miscellaneous Notes* Telephone Encounter - Cynthia Cutler RN - 09/16/2021 4:14 PM EDT Pt notified and verbalizes understanding. Cynthia Cutler RN * Telephone Encounter - Cynthia Cutler RN - 09/16/2021 3:17 PM EDT Pt left before completing his Xray today. Will do Xray when here for radiation tomorrow. Anthony instructs to have pt go to ER if his abdominal pain worsens in the meantime. Call placed to pt. No answer. Message left requesting call back. Cynthia Cutler RN documented in this encounterRegency Hospital [facility]05-16-2022 History of Present illness Narrative* Anthony Weaver PA-C - 09/16/2021 11:51 AM EDT PATIENT NAME: Alejo Floyd DATE: 09/16/2021 PRIMARY [...] chills, cough shortness of breath. He was eatingand drinking fine and had normal bowel movements [...] reducible as is ventral hernia. BS present X4 quadrants. No rebound or guarding on exam [...] for carcinoma. 07/17/2020 Base of tongue biopsy ([facility]) Invasive squamous cell carcinoma HPV negative LABS: [...] FDG avid neoplastic process.. 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 PET scan obtained 08/10/2020 revealed no evidence of distant metastases. PEG tube was placed on 08/08/2020 for enteral nutrition. First-line treatment with definitive chemoradiation consisting of radiation therapy Thursday throughThursday plus cisplatin 40 mg/m2 weekly started on 08/14/2020. The patient completed cisplatin cycle 7on 09/25/2020. Radiation finished on 09/28/2020 (7000 cGy in 35 fractions). The patient tolerated histreatment relatively well and had a complete clinical [...] cell carcinoma. The patient was referred to [facility] (Dr. Olivarez), and subsequently underwent [...] PA-C CC: Dr. 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 Mike Brown MD documented in this encounterRegency Hospital [facility]05-16-2022 Miscellaneous Notes* Telephone Encounter - REINALDO Ruelas - 09/16/2021 9:16 AM EDT SOCIAL WORK FOLLOW UP NOTE: [facility] [...] email from the [facility] [place] [facility] stating that they are now accepting applications [...] home address. RIMA Ruelas documented in this encounterRegency Hospital [facility]05-09-2022 History of Present illness Narrative* Rylee Wilhelm RD - 09/09/2021 4:13 PM EDT Nutrition Therapy Progress Note RECOMMENDED MALNUTRITION DIAGNOSIS: [...] Wilhelm MS, RDN, LD documented in this encounterRegency Hospital [facility]05-09-2022 Miscellaneous Notes* Telephone Encounter - Caitlyn Stockton RN - 09/09/2021 12:53 PM EDT Pt receiving dose 5 carboplatin today and reports that he forgot to mention that my feet are starting to have more tingling. Pt denies recent falls and reports that neuropathy is tolerable. Wanted you to be aware as he doesn't have f/u prior to his next dose. 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 Kathrine Carpenter MD documented in this encounterRegency Hospital [facility]05-09-2022 History of Present illness Narrative* Esdras Cash MD - 09/09/2021 7:38 AM EDT PATIENT NAME: Alejo Floyd DATE: 09/09/2021 PRIMARY [...] for carcinoma. 07/17/2020 Base of tongue biopsy ([facility]) Invasive squamous cell carcinoma HPV negative LABS: [...] FDG avid neoplastic process.. 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 PET scan obtained 08/10/2020 revealed no evidence of distant metastases. PEG tube was placed on 08/08/2020 for enteral nutrition. First-line treatment with definitive chemoradiation consisting of radiation therapy Thursday throughThursday plus cisplatin 40 mg/m2 weekly started on 08/14/2020. The patient completed cisplatin cycle 7on 09/25/2020. Radiation finished on 09/28/2020 (7000 cGy in 35 fractions). The patient tolerated histreatment relatively well and had a complete clinical [...] cell carcinoma. The patient was referred to [facility] ENT (Dr. Olivarez), and subsequently underwent [...] MD CC: Dr. Bagley documented in this encounterRegency Hospital [facility]05-02-2022 History of Present illness Narrative* Abby Ba RN - 09/02/2021 11:46 AM EDT . documented in this encounterRegency Hospital [facility]05-02-2022 History of Present illness Narrative* Anthony Weaver PA-C - 09/02/2021 10:00 AM EDT PATIENT NAME: Alejo Floyd DATE: 09/02/2021 PRIMARY CARE PHYSICIAN: Dr. Gildardo Lacy OTHER PHYSICIANS: Dr. Bagley, Dr. Carpenter, Dr. Olivarez (Elements copied from Dr. Cash's note dated August 19 2021, have been reviewed and updated where appropriate, and all reflect current assessment and medical decision making during today's encounter,September 02, 2021) CC: This is a 60 [...] for carcinoma. 07/17/2020 Base of tongue biopsy ([facility]) Invasive squamous cell carcinoma HPV negative LABS: [...] FDG avid neoplastic process.. 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 PET scan obtained 08/10/2020 revealed no evidence of distant metastases. PEG tube was placed on 08/08/2020 for enteral nutrition. First-line treatment with definitive chemoradiation consisting of radiation therapy Thursday throughThursday plus cisplatin 40 mg/m2 weekly started on 08/14/2020. The patient completed cisplatin cycle 7on 09/25/2020. Radiation finished on 09/28/2020 (7000 cGy in 35 fractions). The patient tolerated histreatment relatively well and had a complete clinical [...] cell carcinoma. The patient was referred to [facility] (Dr. Olivarez), and subsequently underwent [...] PA-C CC: Dr. 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 Kathrine Carpenter MD documented in this encounterRegency Hospital [facility]04-25-2022 History of Present illness Narrative* Rylee Wilhelm, RD - 08/26/2021 8:42 AM EDT Nutrition Therapy Reassessment RECOMMENDED MALNUTRITION DIAGNOSIS: NO [...] recurrent oropharynx cancer. Pt is currently being treatedwith RT and carbo. Pt denies any chewing/swallowing [...] Wilhelm MS, RDN, LD documented in this encounterRegency Hospital [facility]04-18-2022 History of Present illness Narrative* Abby Ba RN - 08/19/2021 2:45 PM EDT . 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 Kathrine Carpenter MD documented in this encounterRegency Hospital [facility] East04-18-2022 History of Present illness Narrative* Ryleekristen Wilhelm RD - 08/19/2021 1:37 PM EDT Nutrition Therapy Progress Note RECOMMENDED MALNUTRITION DIAGNOSIS: [...] Time: 15 minutes Signed by: Rylee Wilhelm, MS, RDN, LD documented in this encounterRegency Hospital [facility] East04-18-2022 History of Present illness Narrative* Nathaly Biggs APRN.[employer] - 08/19/2021 1:30 PM EDT PATIENT NAME: Alejo Floyd DATE: 08/19/2021 PRIMARY [...] for carcinoma. 07/17/2020 Base of tongue biopsy ([facility]) Invasive squamous cell carcinoma HPV negative LABS: [...] FDG avid neoplastic process.. 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 PET scan obtained 08/10/2020 revealed no evidence of distant metastases. PEG tube was placed on 08/08/2020 for enteral nutrition. First-line treatment with definitive chemoradiation consisting of radiation therapy Thursday throughThursday plus cisplatin 40 mg/m2 weekly started on 08/14/2020. The patient completed cisplatin cycle 7on 09/25/2020. Radiation finished on 09/28/2020 (7000 cGy in 35 fractions). The patient tolerated histreatment relatively well and had a complete clinical [...] cell carcinoma. The patient was referred to [facility] (Dr. Olivarez), and subsequently underwent [...] current medications, continue per PCP. Nathaly Biggs APRN.[employer] CC: Dr. Bagley documented in this encounterRegency Hospital [facility]04-14-2022 Miscellaneous Notes* Telephone Encounter - Cynthia Cutler RN - 08/15/2021 3:48 PM EDT CYCLE 1/DAY 1 POST TREATMENT CALL Today's [...] long. No nausea or vomiting. Denies constipation ordiarrhea. No difficulty swallowing. Integument: None Activity: Patient [...] protocol. Cynthia Cutler RN documented in this encounterRegency Hospital [facility] East04-11-2022 Miscellaneous Notes* Telephone Encounter - Cynthia Cutler RN - 08/12/2021 11:49 AM EDT Pt's chemo ed completed via telephone prior to today's appointment. Pt given the chemocare handout,when to call list, and contact information today. No additional questions noted. 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 Kathrine Carpenter MD documented in this encounterRegency Hospital [facility]04-11-2022 History of Present illness Narrative* Esdras Cash MD - 08/12/2021 8:30 AM EDT PATIENT NAME: Alejo Floyd DATE: 08/12/2021 PRIMARY [...] neck surgery. He started radiation therapy today, andcurrently is ready to proceed with chemotherapy as [...] for carcinoma. 07/17/2020 Base of tongue biopsy ([facility]) Invasive squamous cell carcinoma HPV negative LABS: [...] FDG avid neoplastic process.. 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 PET scan obtained 08/10/2020 revealed no evidence of distant metastases. PEG tube was placed on 08/08/2020 for enteral nutrition. First-line treatment with definitive chemoradiation consisting of radiation therapy Thursday throughThursday plus cisplatin 40 mg/m2 weekly started on 08/14/2020. The patient completed cisplatin cycle 7on 09/25/2020. Radiation finished on 09/28/2020 (7000 cGy in 35 fractions). The patient tolerated histreatment relatively well and had a complete clinical [...] cell carcinoma. The patient was referred to [facility] (Dr. Olivarez), and subsequently underwent [...] MD CC: Dr. Bagley documented in this encounterRegency Hospital [facility] East04-08-2022 History of Present illness Narrative* Vale Chung PT, DPT - 08/09/2021 10:51 AM EDT Episode Visit Count: 1 Therapist That Will [...] Planned: 2 Planned Treatment Interventions: Therapeutic exercise (82568);Neuromuscular re- education (71287);Manual therapy (16968);Therapeutic activities (93959);Self- halfway management (14631);Patient/Family/Caregiver Education PLAN FOR NEXT VISIT: Manual and [...] limitations Relevant History Past Relevant Medical Conditions: Hypertension;Diabetes;COPD;Smoking History;Cancer Right or Left Handed: Right Employment: [...] Trapezius Flexibility Comments: min restriction Flexibility Comments: Brian: R: mod restriction, L: min restriction UE [...] Device: Walking Poles Education: Education Learning Preferences: Demonstration;Explanation;Performance;Printed Materials Barriers: None Learning/educational needs: Home exercise program;Plan of Care Education Provided: Yes, see treatment interventions for education provided Education Provided To: Patient Education Mode/Type: Demonstration;Explanation/Discussion;Literature/Printed Materials;Performance;Teach Back Response to Education/Teach Back: States/Identifies;Return [...] exercises in regards to decreasing fatigue , improvingfitness, increase ease of ADL and ROM and [...] Vale Chung PT, DPT documented in this encounterRegency Hospital [facility]04-04-2022 History of Present illness Narrative* Cynthia Cutler RN - 08/05/2021 1:28 PM EDT ONCOLOGY PATIENT EDUCATION NOTE TOPIC: Chemotherapy, Medications: [...] hearing impairment, hypersensitivity reaction, infection, kidney toxicity, mouthhygiene, mucositis, nausea/vomitting, neutropenia, peripheral neuropathy, skin changes, [...] patient, which included the importance of reporting anyfever of 100.4F (38.0C) or greater to the healthcare team as noted on the provided wallet card and/or magnet. YES - Patient services information. YES - Education provided via telephone. Informed pt I would give him the above handouts at his on 08/12. Also informed pt of antiemetics pending package pick up in our pharmacy. Pt verbalizes understanding. Denies any questions or concerns at this time. Time Spent: 17 minutes REFERRAL (RECOMMENDATION): Already established w/ Professor Of Floriculture. 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 Patient subsequently underwent direct laryngoscopy with biopsy and right radical neck dissection levels 2 through 5, with sacrifice of part of the sternocleidomastoid muscle internal jugular and CNXIcomplex . Intraoperative findings included no evidence of [...] oropharynx, 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, [id number], with recurrence right neck status post right radical neck dissection. Patient has seen my colleague Dr. Green, postoperative reirradiation recommended due to high risknature of recurrence. Patient offered clinical protocol (ECOG 3191 ) however patient not able to stay in [place] for the duration of treatment seeking to [...] Kathrine Carpenter MD cc: Gildardo Lacy MD ([facility]) [address] [place] [address] Dr. Bagley documented in this encounterRegency Hospital [facility] East04-01-2022 Miscellaneous Notes* Telephone Encounter - Nathaly Biggs APRN.[facility] - 08/02/2021 1:35 PM EDT The following approved medication requests have been transmitted electronically. Signed Prescriptions Disp Refills ondansetron orally disintegrating (ZOFRAN ODT) 8 mg disintegrating tablet 90 tablet 1 Sig: Take 1 tablet by mouth every 8 hours as needed for nausea/vomiting. Authorizing Provider: DIAN, NATHALY prochlorperazine (COMPAZINE) 10 mg tablet 100 tablet 1 Sig: Take 1 tablet by mouth every 6 hours as needed. Authorizing Provider: NATHALY BIGGS APRN.[employer] * Telephone Encounter - Cynthia Cutler RN - 08/02/2021 1:29 PM EDT Scripts for antiemetics pended. Please review and approve. Thanks! Cynthia Cutler RN documented in this encounterRegency Hospital [facility] East03-31-2022 History of Present illness Narrative* Rylee Wilhelm RD - 08/01/2021 1:57 PM EDT Nutrition Therapy Initial Assessment RECOMMENDED MALNUTRITION DIAGNOSIS: [...] starting to lose weight. He has since restartedtaking the appetite stimulant. Pt reports he is [...] Wilhelm MS, RD, LD documented in this encounterRegency Hospital [facility] East03-31-2022 History of Present illness Narrative* Esdras Cash MD - 08/01/2021 7:12 AM EDT PATIENT NAME: Alejo Floyd DATE: 08/01/2021 PRIMARY CARE PHYSICIAN: Dr. Gildardo Lacy OTHER PHYSICIANS: Dr. Bagley, Dr. Carpenter, Dr. Olivarez Portions of this encounter note have been copied from the note from 03/20/2021 and has been updatedwhere appropriate, and reflect my current medical decision [...] cell carcinoma. The patient was referred to [facility] ENT (Dr. Olivarez), and subsequently underwent [...] The patient states that he is able tomaintain adequate hydration and nutrition with what he [...] for carcinoma. 07/17/2020 Base of tongue biopsy ([facility]) Invasive squamous cell carcinoma HPV negative LABS: [...] FDG avid neoplastic process.. 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 PET scan obtained 08/10/2020 revealed no evidence of distant metastases. PEG tube was placed on 08/08/2020 for enteral nutrition. First-line treatment with definitive chemoradiation consisting of radiation therapy Thursday throughThursday plus cisplatin 40 mg/m2 weekly started on 08/14/2020. The patient completed cisplatin cycle 7on 09/25/2020. Radiation finished on 09/28/2020 (7000 cGy in 35 fractions). The patient tolerated histreatment relatively well and had a complete clinical [...] cell carcinoma. The patient was referred to [facility] ENT (Dr. Olivarez), and subsequently underwent a right radical neck dissection on 06/25/2021. 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 The patient tolerated surgery well with no immediate complications. Curr ently he is clinically stable and OSKAR. Options for further management were discussed at length with the patient. Adjuvant therapy is indicated. Standard of care would be reirradiation plus/minus concurrent systemic therapy. He would be eligible for current protocol (ECOG OB8172) randomizing patients to receive reirradiation plus a peoria based chemo versus reirradiation plus pembrolizumab versus pembrolizumab alone. However, the patient declined entering the protocol. After much discussion we have elected to proceed with reirradiation plus chemotherapy consisting ofcarboplatin AUC of 2 weekly x 6. The [...] MD CC: Dr. Bagley documented in this encounterRegency Hospital [facility] East03-31-2022 History of Present illness Narrative* G Сергей Carpenter MD - 08/01/2021 12:00 AM EDT ALEJO FLOYD [id number] 08/01/2021 [facility] Radiation Oncology Department SIMULATION NOTE DATE OF SIMULATION: 08/01/2021 THERAPIST: Millie Zaman MACHINE: [id number] mCT DIAGNOSIS: Malignant neoplasm of base of [id number] AREA: head/neck CONTRAST: IV <Select> 100ML OF OMNI 300 WAS ADMINISTERED VIA THE RT AC Consent in Epic: Yes PATIENT POSITION: Supine. FIXATION DEVICE: In order to achieve accurate and reproducible treatments, the patient is immobilized with THE ORFIT BODYBOARD, 9 DEGREE WEDGE HEEL INFERIOR, BLUE HEAD PAD, SBRT KNEE SPONGE, CUSTOM 5POINT MASK, CUSTOM MOUTHPIECE A time-out was conducted [...] / NIK 24:32 PM documented in this encounterRegency Hospital [facility] East03-31-2022 History of Present illness Narrative* Kathrine Carpenter MD - 08/01/2021 12:00 AM EDT ALEJO FLOYD [id number] 08/01/2021 [facility] Department of Radiation Oncology Treatment Planning Note For reasons stated in the consult note, Alejo Floyd is a candidate for radiation therapy. Based onreview and interpretation of the relevant diagnostic studies [...] using conventional or 3D planning. The specific doserequirements for the PTV, organs at risk and dose-volume histograms are contained in this treatmentplan and/or elsewhere in the medical record. A completed summary of this plan dated 08/09/21 incorporated herein by reference includes dose, beam arrangements, energy, blocking, isodose distribution, and/or ports and DVH. Electronically Signed Сергей Carpenter M.D. 2:17 PM documented in this encounterRegency Hospital Cleveland East03-29-2022 Miscellaneous Notes* Telephone Encounter - Azar Martino LPN - 07/30/2021 11:00 AM EDT Patient requesting a refill on Megace. States he does have 1 bottle left at home. Azar Martino LPN documented in this encounterRegency Hospital [facility] East02-17-2022 NoteHNO ID: [id number] Author: RT Maureen(R) Service: Radiology Author Type: [...] BY: RT Maureen(R) June 20, 2021 3:33 [id number] NoteMR#: [id number] I [facility] Pt. Name: Alejo Floyd Admitted: 05/27/2021 [...] is a 60-year-old male, who presented to [facility] ER as a transfer from [facility] for evaluation of small-bowel obstruction. He presents at the [facility] for evaluation of 2-3 days of constant abdominal pain, which radiated to the back. Reported nausea and vomiting as well as decreased appetite/oral intake with loose stools in the morning, and he has not been passing any stool or gas since the this morning, the morning of 05/27/2021. At [facility], he had a CT of his abdomen [...] was the accepting physician, who transferred to [facility]. The patient arrived with the NG tube, nasogastric tube in place. Denied fever, chills, chest pain, shortness of breath, blood in stools, urinary symptoms. His abdomen is soft and mildly distended and moderately tender to palpation without guarding or rebound tenderness. His abdomen did note to have many healed surgical scars. He did have an elevated creatinine on admission what was reported from [facility]. The patient was admitted for his NG [...] by: Charles Morgan MD 06/09/2021 07:30 P Charles Morgan MD I have reviewed this discharge summary and confirmed the resident's documentation. Please note that there may be additional documentation from me. Date Dict: 06/03/2021/09:15 P/Luis Miguel Dodd CNP Date Trans: 06/04/2021 07:42 A/radha DN_[id number] cc: Gildardo Lacy M.D. [address] [facility] [address] History of Present illness Narrative* Cynthia Meadows, RT(R) - 04/05/2021 9:00 AM EST RADIOLOGY SERVICE PROGRESS NOTE SERVICE DATE: 04/05/2021 [...] information regarding radiation safety can be found usingthis link: [email or web address] SIGNATURE: RT Jose Alfredo(R) PATIENT NAME: Alejo Floyd DATE: April 05, 2021 TIME: 9:12 AM PAGER/CONTACT #: documented in this encounterRegency Hospital Cleveland East12-03-2021 Nurse Note* Marina Del Rio RN - 04/05/2021 9:00 AM EST Radiology Service Progress Note DATE OF SERVICE: [...] DATE: April 05, 2021 TIME: 9:08 AM [facility] Work Phone: 1(300) 145-224212-03-2021 Nurse Note* Marina Del Rio RN - 04/05/2021 9:00 AM EST Radiology Service Progress Note DATE OF SERVICE: [...] 2021 TIME: 9:08 AM documented in this encounterRegency Hospital [facility] East07-30-2015 Chief complaint Narrative - Reported* ALEJO FLOYD is being seen for a consultation for SRE. * 61-year-old -[place] who is in my office for the first time to establish relationship with cardiology. The patient has history of active tobacco abuse and PAD involving mostly the left femoral artery where he had stenting done several years ago in [place]. He has no previous cardiac catheterizations or [...] His blood pressure in the office today wasbelow normal. He has no syncope orthopnea PND [...] but has history of TIA. EKG reveals sinusrhythm with diffuse ST and T changes. He does complain of dyspnea on exertion. Possibilities include CAD/COPD or other etiologies. Examination was remarkable for mild hypotension and mildly diminished breath sounds * Assessment/recommendations: * 1 significant PAD most affecting the left femoral artery has had previous stenting but recent ultrasound showed occlusion of the left femoral artery. He remains asymptomatic. Encouraged the patient to stop smoking and to walk on daily basis to recruit more collaterals. Since he does not have symptoms we will not initiate medical therapy. * 2 abnormal EKG with dyspnea. Patient will need to have evaluation for ischemic heart disease and left ventricular ejection fraction valvular heart disease. Therefore Lexiscan MPI and echocardiograms are scheduled. * 3 patient has history of cardiac arrhythmias of unknown nature. He is currently on amiodarone. If his noninvasive testing come back unremarkable I will discontinue the amiodarone. The long-term side effect of amiodarone were discussed with the patient and unfortunately has not been having any testing to assess for amiodarone toxicity. * 4 patient has high depression score he is currently on medical therapy and he discussed this regularly with his PCP. 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 The patient was advised to quit smoking completely. He does not follow with pulmonary medicine * 6 the patient's lipid status is unknown we will check his lipid profile. Given his vascular diseasehe would likely need to be on statin * 7 history of TIA, currently on aspirin. He would likely benefit from statin therapy [facility] Work Phone: [phone] Chief complaint Narrative - Reported* ALEJO FLOYD is being seen for a consultation for SRE. * 61-year-old -[place] who is in my office for the first time to establish relationship with cardiology. The patient has history of active tobacco abuse and PAD involving mostly the left femoral artery where he had stenting done several years ago in [place]. He has no previous cardiac catheterizations or [...] His blood pressure in the office today wasbelow normal. He has no syncope orthopnea PND [...] but has history of TIA. EKG reveals sinusrhythm with diffuse ST and T changes. He does complain of dyspnea on exertion. Possibilities include CAD/COPD or other etiologies. Examination was remarkable for mild hypotension and mildly diminished breath sounds * Assessment/recommendations: * 1 significant PAD most affecting the left femoral artery has had previous stenting but recent ultrasound showed occlusion of the left femoral artery. He remains asymptomatic. Encouraged the patient to stop smoking and to walk on daily basis to recruit more collaterals. Since he does not have symptoms we will not initiate medical therapy. * 2 abnormal EKG with dyspnea. Patient will need to have evaluation for ischemic heart disease and left ventricular ejection fraction valvular heart disease. Therefore Lexiscan MPI and echocardiograms are scheduled. * 3 patient has history of cardiac arrhythmias of unknown nature. He is currently on amiodarone. If his noninvasive testing come back unremarkable I will discontinue the amiodarone. The long-term side effect of amiodarone were discussed with the patient and unfortunately has not been having any testing to assess for amiodarone toxicity. * 4 patient has high depression score he is currently on medical therapy and he discussed this regularly with his PCP. 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 The patient was advised to quit smoking completely. He does not follow with pulmonary medicine * 6 the patient's lipid status is unknown we will check his lipid profile. Given his vascular diseasehe would likely need to be on statin * 7 history of TIA, currently on aspirin. He would likely benefit from statin therapy -[facility] [address] DO Work Phone: [phone] Chief complaint Narrative - Reported* ALEJO FLOYD is being seen for a consultation for SRE. * 61-year-old -[place] who is in my office for the first time to establish relationship with cardiology. The patient has history of active tobacco abuse and PAD involving mostly the left femoral artery where he had stenting done several years ago in [place]. He has no previous cardiac catheterizations or [...] His blood pressure in the office today wasbelow normal. He has no syncope orthopnea PND [...] but has history of TIA. EKG reveals sinusrhythm with diffuse ST and T changes. He does complain of dyspnea on exertion. Possibilities include CAD/COPD or other etiologies. Examination was remarkable for mild hypotension and mildly diminished breath sounds * Assessment/recommendations: * 1 significant PAD most affecting the left femoral artery has had previous stenting but recent ultrasound showed occlusion of the left femoral artery. He remains asymptomatic. Encouraged the patient to stop smoking and to walk on daily basis to recruit more collaterals. Since he does not have symptoms we will not initiate medical therapy. * 2 abnormal EKG with dyspnea. Patient will need to have evaluation for ischemic heart disease and left ventricular ejection fraction valvular heart disease. Therefore Lexiscan MPI and echocardiograms are scheduled. * 3 patient has history of cardiac arrhythmias of unknown nature. He is currently on amiodarone. If his noninvasive testing come back unremarkable I will discontinue the amiodarone. The long-term side effect of amiodarone were discussed with the patient and unfortunately has not been having any testing to assess for amiodarone toxicity. * 4 patient has high depression score he is currently on medical therapy and he discussed this regularly with his PCP. 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 The patient was advised to quit smoking completely. He does not follow with pulmonary medicine * 6 the patient's lipid status is unknown we will check his lipid profile. Given his vascular diseasehe would likely need to be on statin * 7 history of TIA, currently on aspirin. He would likely benefit from statin therapy [facility] Work Phone: [employer] note* Diagnosis Oropharnyx cancer (HCC)- Primary [facility] 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 Malaise and fatigue Other malaise and fatigue [facility] Diagnosis Oropharnyx cancer (HCC)- Primary [facility] Diagnosis Oropharnyx cancer (HCC)- Primary [facility] Diagnosis Physical deconditioning- Primary Debility, unspecified Current smoker Tobacco use disorder [facility] Diagnosis Cancer of base of tongue [...] Tachycardia Tachycardia, unspecified [facility] Diagnosis Oropharnyx cancer (HCC)- Primary [facility] 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 [facility] Diagnosis Cancer of base of tongue [...] Tachycardia, unspecified [facility] [...] protein-calorie malnutrition [facility]* Diagnosis Nausea- Primary Nausea alone Lower abdominal pain Abdominal pain, other specified site 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 [facility] Diagnosis Lower abdominal pain- Primary Abdominal pain, other specified site 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 Nausea Nausea alone [facility] Diagnosis Oropharnyx cancer (HCC)- Primary [facility] 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 [facility] Diagnosis Oropharnyx cancer (HCC)- Primary [facility] Diagnosis Oropharnyx cancer (HCC)- Primary Malaise and fatigue Other malaise and fatigue Severe protein-calorie malnutrition (HCC) Other severe protein-calorie malnutrition [facility] Diagnosis Oropharnyx cancer (HCC)- Primary [facility] Diagnosis Oropharnyx cancer (HCC)- Primary [facility] Diagnosis 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, face, and neck 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 Cancer related pain Neoplasm related pain (acute) (chronic) Need for influenza vaccination Need for prophylactic vaccination and inoculation against influenza [facility] Diagnosis Oropharnyx cancer (HCC)- Primary [facility] 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 [facility] 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 [facility]* Diagnosis Oropharnyx cancer (HCC)- Primary [facility] Diagnosis Oropharnyx cancer (HCC)- Primary Severe protein-calorie malnutrition (HCC) Other severe protein-calorie malnutrition Chronic obstructive pulmonary disease, unspecified COPD type (HCC) documented in this encounter [facility] note* Diagnosis PVD (peripheral vascular disease) (CMS/HCC)- Primary Unspecified peripheral vascular disease Abnormal EKG Nonspecific abnormal electrocardiogram (ECG) (EKG) TIA (transient ischemic attack) Unspecified transient cerebral ischemia Current smoker Hyperlipidemia, unspecified hyperlipidemia type Pulmonary emphysema, unspecified emphysema type (CMS/HCC) documented in this encounter [facility] Work Phone: Evaluation note* 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 Malaise and fatigue Other malaise and fatigue Chronic obstructive pulmonary disease, unspecified COPD type (HCC) Severe protein-calorie malnutrition (HCC) Other severe protein-calorie malnutrition Cancer related pain Neoplasm related pain (acute) (chronic) [facility] Diagnosis 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, face, and neck History of radiation therapy Personal history of irradiation, presenting hazards to health documented in this encounter [facility] noteNo assessment information availableUniversity [facility] Work Phone: Evaluation note* Diagnosis [...] hazards to health documented in this encounter [facility] note* Diagnosis Oropharnyx cancer (HCC)- Primary Pharyngeal [...] severe protein-calorie malnutrition documented in this encounter [facility] note* Diagnosis Oropharnyx cancer (HCC)- Primary Pharyngeal [...] malaise and fatigue documented in this encounter [facility] note* Diagnosis Oropharnyx cancer (HCC)- Primary Pharyngeal [...] 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 [facility] note* Diagnosis Oropharnyx cancer (HCC)- Primary Pharyngeal [...] 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 [facility] note* Diagnosis Oropharnyx cancer (HCC)- Primary Pharyngeal [...] 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 [facility] note* Diagnosis Malignant neoplasm of head, face [...] Dysphagia, unspecified type [facility] Diagnosis Preop examination- Primary Unspecified pre-operative examination documented [facility]* Diagnosis Essential hypertension (CMS/HCC)- Primary [...] right shoulder- Primary documented in this encounter [facility]* Diagnosis Essential hypertension (CMS/HCC)- Primary [...] right shoulder- Primary [facility]* Diagnosis Essential hypertension (CMS/HCC)- Primary [...] thoracolumbar intervertebral disc documented in this encounter [facility]* Diagnosis Essential hypertension (CMS/HCC)- Primary [...] tissues of limb documented in this encounter [facility]* Diagnosis PVD (peripheral vascular disease) (CMS-HCC) Unspecified peripheral vascular disease Hyperlipidemia, unspecified hyperlipidemia type TIA (transient ischemic attack) Unspecified transient cerebral ischemia BMI less than 19,adult Current smoker documented in this encounter [facility] Work Phone: Evaluation note* Diagnosis Internal derangement of right shoulder- Primary documented in this encounter [facility]* Diagnosis DDD (degenerative disc disease), thoracic Degeneration of thoracic or thoracolumbar intervertebral disc documented in this encounter [facility]* Diagnosis Essential hypertension (CMS/HCC)- Primary [...] thoracolumbar intervertebral disc documented in this encounter [facility]* Diagnosis Essential hypertension (CMS/HCC)- Primary [...] thoracolumbar intervertebral disc documented in this encounter [facility]* Diagnosis Essential hypertension (CMS/HCC)- Primary [...] thoracolumbar intervertebral disc documented in this encounter [facility]* Diagnosis Essential hypertension (CMS/HCC)- Primary [...] COPD type (CMS/HCC) [facility] Diagnosis Oropharnyx cancer (HCC)- Primary Pharyngeal [...] Primary Generalized pain [facility] Diagnosis Oropharnyx cancer (HCC)- Primary Pharyngeal [...] Tobacco use disorder [facility]* Diagnosis Oropharnyx cancer (HCC)- Primary Pharyngeal [...] Tachycardia Tachycardia, unspecified PVD (peripheral vascular disease) ([facility]) Peripheral vascular disease, unspecified Polyneuropathy due to [...] Pain Generalized pain documented in this encounter [facility] note* Diagnosis Essential hypertension (CMS/HCC)- Primary Unspecified essential hypertension Thoracic spondylosis MDD (major depressive disorder), recurrent episode, mild (HCC) (CMS/HCC) Primary insomnia Persistent disorder of initiating or maintaining sleep Chronic obstructive pulmonary disease, unspecified COPD type (CMS/HCC) Chemotherapy-induced peripheral neuropathy (CMS/HCC) Tongue cancer (CMS/HCC) Malignant neoplasm of tongue, unspecified site 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[facility]/HCC) Encounter for long-term (current) use of medications [...] thoracolumbar intervertebral disc [facility] Diagnosis Oropharnyx cancer (HCC)- Primary Pharyngeal [...] face, and neck [facility] Diagnosis Essential hypertension (CMS/HCC)- Primary Unspecified [...] Unspecified essential hypertension documented in this encounter [facility]* Diagnosis Essential hypertension (CMS/HCC)- Primary [...] thoracolumbar intervertebral disc documented in this encounter [facility]* Diagnosis Essential hypertension (CMS/HCC)- Primary [...] or maintaining sleep [facility]* [...] and unspecified hyperlipidemia documented in this encounter [facility]* Diagnosis Chronic obstructive pulmonary disease, unspecified COPD type (Multi)- Primary PVD (peripheral vascular disease) (CMS-HCC) Unspecified peripheral vascular disease Current smoker Dyspnea, unspecified type Hyperlipidemia, unspecified hyperlipidemia type TIA (transient ischemic attack) Unspecified transient cerebral ischemia documented in this encounter [facility] Work Phone: Evaluation note* Diagnosis Essential hypertension [...] thoracolumbar intervertebral disc documented in this encounter [facility]* Diagnosis Essential hypertension (CMS/HCC)- Primary [...] internal carotid artery documented in this encounter [facility]* Diagnosis Essential hypertension- Primary Unspecified [...] thoracolumbar intervertebral disc documented in this encounter [facility]* Diagnosis Essential hypertension- Primary Unspecified [...] thoracolumbar intervertebral disc documented in this encounter [facility]* Diagnosis Essential hypertension- Primary Unspecified [...] thoracolumbar intervertebral disc documented in this encounter [facility]* Diagnosis Essential hypertension- Primary Unspecified [...] respiratory failure (HCC) [facility] Diagnosis Oropharnyx cancer (HCC)- Primary Pharyngeal [...] of thyroid- Primary [facility] Diagnosis Essential hypertension- Primary Unspecified essential [...] type (HCC)- Primary documented in this encounter [facility]* Diagnosis Sequelae, post-stroke- Primary PAD (peripheral artery disease) Unspecified peripheral vascular disease Hypertension, unspecified type Hyperlipidemia, unspecified hyperlipidemia type Left ventricular hypertrophy Cardiomegaly ICAO (internal carotid artery occlusion), left Chronic obstructive pulmonary disease, unspecified COPD type ([facility]-HCC) History of throat cancer Tobacco dependence Tobacco use disorder Alcoholism ([facility]-HCC) Other and unspecified alcohol dependence, unspecified drinking behavior [facility] Diagnosis Essential hypertension- Primary Unspecified [...] ankle and foot documented in this encounter [facility] HealthcareInstructionsNot on filedocumented in this encounterPro[facility] SystemInstructionsNot on filedocumented in this encounterProK[facility] SystemReason for referral (narrative)* Diagnostic Procedure Only (Routine) - AuthorizedSpecialtyDiagnoses / ProceduresReferred By ContactReferred To ContactXR IMAGING Diagnoses Lower abdominal pain Procedures XR ABDOMEN 2V ROUTINE SUPINE W UPRIGHT/DECUB/CTL RADIOLOGIC EXAM ABDOMEN 2 VIEWS Anthony Weaver PA-C [address] [place] [address] [place] [address] Xr Imaging Referral IDStatusReasonStart DateExpiration DateVisits RequestedVisits [id number] Auto-Generated Referral / [facility] for referral (narrative)* Diagnostic Procedure Only (Routine) - Pending ReviewSpecialtyDiagnoses / ProceduresReferred By Contact Referred To ContactMOLECULAR & FUNCTIONAL IMAGING Diagnoses Oropharnyx cancer (HCC) Procedures NM PET/CT SKULL-THIGH SUBSEQUENT PET IMAGING CT ATTENUATION SKULL BASE MID-THIGH Kathrine Carpenter MD [address] [place] [address] [place] [address] Molecular & Functional Imaging [address] [place] [address] Referral IDStatusReasonStart DateExpiration DateVisits RequestedVisits [id number] Review Auto-Generated Referral / [facility] for referral (narrative)* Consultation (Routine) - AuthorizedSpecialtyDiagnoses / ProceduresReferred By ContactReferred To ContactCardiology Diagnoses PVD (peripheral vascular disease) (CMS/HCC) Procedures Follow Up In Cardiology Carmen Neely MD [facility], [address] [address] Carmen Neely MD [facility], [place] [address] [place] [phone] Referral IDStatusReasonStart DateExpiration DateVisits RequestedVisits [id number]/ [facility] Work Phone: [facility] for referral (narrative)* Diagnostic Procedure Only (Routine) - Pending ReviewSpecialtyDiagnoses / ProceduresReferred By ContactReferred To ContactMOLECULAR & FUNCTIONAL IMAGING Diagnoses Cancer of base of tongue (HCC) Malaise and fatigue Procedures NM PET/CT SKULL-THIGH SUBSEQUENT PET IMAGING CT ATTENUATION SKULL BASE MID-THIGH Esdras Cash MD [address] [place] [address] [place] [address] Molecular & Functional Imaging [address] [place] [address] Referral IDStatusReasonStart DateExpiration DateVisits RequestedVisits [id number] Review Auto-Generated Referral / [facility] for referral (narrative)* Diagnostic Procedure Only (Routine) - ClosedSpecialtyDiagnoses / ProceduresReferred By ContactReferred To ContactMOLECULAR & FUNCTIONAL IMAGING Diagnoses Cancer of base of tongue (HCC) Malaise and fatigue Procedures NM PET/CT SKULL-THIGH SUBSEQUENT PET IMAGING CT ATTENUATION SKULL BASE MID-THIGH Esdras Cash MD [address] [place] [address] [place] [address] Molecular & Functional Imaging [address] [place] [address] Referral IDStatusReasonStart DateExpiration DateVisits RequestedVisits [id number] Auto-Generated Referral / [facility] for referral (narrative)* Diagnostic Procedure Only (Routine) - ClosedSpecialtyDiagnoses / ProceduresReferred By ContactReferred To ContactMOLECULAR & FUNCTIONAL IMAGING Diagnoses Cancer of base of tongue (HCC) Procedures NM PET/CT SKULL-THIGH SUBSEQUENT PET IMAGING CT ATTENUATION SKULL BASE MID-THIGH Esdras Cash MD [address] [place] [address] [place] [address] Molecular & Functional Imaging [address] [place] [address] Referral IDStatusReasonStart DateExpiration DateVisits RequestedVisits [id number] Auto-Generated Referral OON/Self Pay Override / [facility] for referral (narrative)* Diagnostic Procedure Only (Routine) - ClosedSpecialtyDiagnoses / ProceduresReferred By ContactReferred To ContactMOLECULAR & FUNCTIONAL IMAGING Diagnoses Oropharnyx cancer (HCC) Procedures NM PET/CT SKULL-THIGH SUBSEQUENT PET IMAGING CT ATTENUATION SKULL BASE MID-THIGH Kathrine Carpenter MD [address] [place] [address] [place] [address] Molecular & Functional Imaging [address] [place] [address] Referral IDStatusReasonStart DateExpiration DateVisits RequestedVisits [id number] Auto-Generated Referral / [facility] for referral (narrative)* Diagnostic Procedure Only (Routine) - ClosedSpecialtyDiagnoses / ProceduresReferred By ContactReferred To ContactMOLECULAR & FUNCTIONAL IMAGING Diagnoses Malignant neoplasm of head, face and neck (HCC) Procedures NM PET/CT SKULL-THIGH SUBSEQUENT TUMOR IMAGING PET W/CONC CT SKULL-THIGH Kathrine Carpenter MD [address] [place] [address] [place] [address] Molecular & Functional Imaging [address] [place] [address] Referral IDStatusReasonStart DateExpiration DateVisits RequestedVisits [id number]/[id number]/ [facility] [facility] Diagnostic Procedure Only (Routine) - AuthorizedSpecialtyDiagnoses / ProceduresReferred By Contact Referred To ContactXR IMAGING Diagnoses Pain Procedures XR SHOULDER GENERAL 3V OR MORE AP/TRUE AP/OTHER RIGHT RADEX SHOULDER COMPLETE MINIMUM 2 VIEWS Hebert Miguel MD [address] [place] [address] Xr Imaging [place] [address] Referral IDStatusReasonStwalterboro DateExpiration DateVisits RequestedVisits [id number] Auto-Generated Referral / [facility] for visit Narrative* Diagnostic Procedure Only (Routine) - ClosedSpecialtyDiagnoses / ProceduresReferred By ContactReferred To Contact Radiation Oncology / RADIATION ONCOLOGY Diagnoses Malignant neoplasm of base of tongue SIM/KAI/Neck - IV Contrast Procedures SIMULATION KELSEY IMRT 30 fractions Kathrine Carpenter MD [address] [facility] [place] [id number] Kathrine Carpenter MD [address] [facility] [place] [address] Referral IDStatusReasonPort [place] DateExpiration DateVisits RequestedVisits [id number]/31/20226/ [facility] for visit Narrative* Consultation (Routine) - Closed SpecialtyDiagnoses / ProceduresReferred By ContactReferred To ContactPulmonary Disease / Pulmonology Diagnoses Chronic obstructive pulmonary disease, unspecified COPD type (HCC) Chronic hypoxic respiratory failure (HCC) Procedures IA OFFICE/OUTPATIENT [facility] MDM 60 MINUTES Gildardo Lacy MD [address] [place] [address] Phone: tel: fax: Kaela Negrete, DO [address] [place] [address] Referral IDStatusReason[place]walter[place] DateExpiration DateVisits RequestedVisits [id number] Specialty Services Required / [facility] Summary Purpose Family History No Family History Records FoundUnknown Family Member Name Dates Details Family history of diabetes m ellitus: Mother, Brother(V18.0, Z83.3) Status:ActiveFamily history of malignant neoplasm of breast: Mother(V16.3, Z80.3) Status:Active Unknown Family Member Name Dates Details Family history of malignant neoplasm of breast: Mother(V16.3, Z80.3) Status:ActiveFamily history of diabetes mellitus: Mother, Brother(V18.0, Z83.3) Status:Active Unknown Family Member Name Dates Details Family history of diabetes m ellitus: Mother, Brother(V18.0, Z83.3) Status:ActiveFamily history of malignant neoplasm of breast: Mother(V16.3, Z80.3) Status:Active Unknown Family Member Name Dates Details Family history of diabetes m ellitus: Mother, Brother(V18.0, Z83.3) Status:ActiveFamily history of malignant neoplasm of breast: Mother(V16.3, Z80.3) Status:Active Unknown Family Member Name Dates Details Family history of diabetes m ellitus: Mother, Brother(V18.0, Z83.3) Status:ActiveFamily history of malignant neoplasm of breast: Mother(V16.3, Z80.3) Status:Active Unknown Family Member Name Dates Details Family history of diabetes m ellitus: Mother, Brother(V18.0, Z83.3) Status:ActiveFamily history of malignant neoplasm of breast: Mother(V16.3, Z80.3) Status:Active Relationship Condition Age at Onset Recorded Date/T valentina brother Diabetes mellitus Unknown Not SpecifiedMalignant neoplasm of breastUnknown Advance Directives No Advanced Directives Records FoundDocuments on File TypeDate RecordedPatient RepresentativeExplanationAdvance Directive(s)06/17/2021 10:43 AMTypeDate RecordedPatient RepresentativeExplanationAdvance Directive(s) 06/17/2021 10:43 AM Advance Directive Response Recorded Date/ Time Advance Directives No August 07 12:13pm Reason for Referral SpecialtyDiagnoses / ProceduresReferred By ContactReferred To ContactREHAB AND SP[facility]TS THERAP[facility] INS Diagnoses Current smoker Physical deconditioning Procedures PT REHAB FOLLOW UP ORDER THERAPEUTIC EXERCISES RE, EA 15 MIN. Pt [facility] [address] [place] [address] [facility] [place] [address] [place] [address] Referral IDStatusReasonStart DateExpiration DateVisits RequestedVisits [id number] Review PCP Requested Referral Auto-Generated Referral /[id number] / ProceduresReferred By ContactReferred To ContactCT IMAGING Diagnoses Oropharnyx cancer (HCC) Procedures CT CHEST W IVCON DIAGNOSTIC COMPUTED TOMOGRAPHY THORAX W/CONTRAST Kathrine Carpenter MD [address] [place] [address] [place] [address] Ct Imaging Referral IDStatusReasonStart DateExpiration DateVisits RequestedVisits [id number] Review Auto-Generated Referral [id number] / ProceduresReferred By ContactReferred To ContactCT IMAGING Diagnoses Oropharnyx cancer (HCC) Procedures CT NECK SOFT TISSUE W IVCON CT SOFT TISSUE NECK W/CONTRAST MATERIAL Kathrine Carpenter MD [address] [place] [address] [place] [address] Ct Imaging Referral IDStatusReasonStart DateExpiration DateVisits RequestedVisits [id number] Review Auto-Generated Referral [id number] / ProceduresReferred By ContactReferred To ContactCT IMAGING Diagnoses Oropharnyx cancer (HCC) Procedures CT CHEST W IVCON DIAGNOSTIC COMPUTED TOMOGRAPHY THORAX W/CONTRAST Kathrine Carpenter MD [address] [place] [address] [place] [address] Ct Imaging [facility] Referral IDStatusReasonStart DateExpiration DateVisits RequestedVisits [id number] Auto-Generated Referral /[id number] / ProceduresReferred By ContactReferred To ContactCT IMAGING Diagnoses Oropharnyx cancer (HCC) Procedures CT NECK SOFT TISSUE WO IVCON CT SOFT TISSUE NECK W/O CONTRAST MATERIAL Kathrine Carpenter MD [address] [place] [address] [address] [place] [phone] [place] [address] Referral IDStatusReasonStart DateExpiration DateVisits RequestedVisits [id number] Auto-Generated Referral /[id number] IDStatusReasonStart DateExpiration DateVisits RequestedVisits [id number] Auto-Generated Referral /[id number] / ProceduresReferred By ContactReferred To ContactCT IMAGING Diagnoses Oropharnyx cancer (HCC) Procedures CT NECK SOFT TISSUE W IVCON CT SOFT TISSUE NECK W/CONTRAST MATERIAL Kathrine Carpenter MD [address] [place] [address] [address] [place] [phone] Ct Imaging [facility] Referral IDStatusReasonStart DateExpiration DateVisits RequestedVisits [id number] Auto-Generated Referral /[id number] / ProceduresReferred By ContactReferred To Contact Diagnoses PVD (peripheral vascular disease) ([facility]) Procedures ECG 12 Lead Carmen Neely MD [address] [place] [address] 2, [place] [phone] Referral IDStatusReasonStart DateExpiration DateVisits RequestedVisits [id number]/16/20247/[id number] / Procedures Referred By ContactReferred To ContactCardiology Diagnoses PVD (peripheral vascular disease) ([facility]) Procedures Follow Up In Cardiology Carmen Neely MD [address] [place] [address] 2, [place] [phone] Carmen Neely MD [address] [facility] 2, [address] [address] Referral IDStatusReasonStart DateExpiration DateVisits RequestedVisits [id number]/16/20247/ Medications Administered Section Medication OrderMAR ActionAction DateDoseRateSite CARBOplatin 204.4 mg in NaCl 0.9% 250 mL (PARAPLATIN) 204.4 mg (Target AUC = 2), INTRAVENOUS, Administer over 30 Minutes, ONCE, 1 dose, On Thu08/12/21 [id number], Approx Total Volume EXP: 1330 08/13/21 Hazardous Chemotherapy Drug: Use appropriate PPE. Antineoplastic Irritant. New Bag/Syringe/Srcwyl8408/12/2021 1:58 PM BZZ707.4 mg dexAMETHasone 10 mg/NS 50 mL (PYXIS) 10 mg ivpb 10 mg, INTRAVENOUS, Administer over 15 Minutes, ONCE, 1 dose, On Thu08/12/21 at 1300, Administer 30minutes prior to infusion. Refrigerate. New Bag/Syringe/Zusnvt4308/12/2021 1:02 PM EDT10 mg ondansetron (PF) 8 mg injection (ZOFRAN) 8 mg, INTRAVENOUS, ONCE, 1 dose, On Thu08/12/21 at 1300, Administer 30 minutes prior to infusion. Given08/12/2021 1:02 PM EDT8 mgMedication OrderMAR ActionAction DateDoseRateSite CARBOplatin 204.4 mg in NaCl 0.9% 250 mL (PARAPLATIN) 204.4 mg (Target AUC = 2), INTRAVENOUS, Administer over 30 Minutes, ONCE, 1 dose, On Thu08/19/21 [id number], Approx Total Volume: mL EXP:_08/20/21 @ 1445__ Hazardous Chemotherapy Drug: Use appropriate PPE. Antineoplastic Irritant. New Bag/Syringe/Pckijc5908/19/2021 3:05 PM HBL491.4 mg dexAMETHasone 10 mg/NS 50 mL (PYXIS) 10 mg ivpb (DECADRON) 10 mg, INTRAVENOUS, Administer over 15 Minutes, ONCE, 1 dose, On Thu08/19/21 at 1500, Administer 30minutes prior to infusion. Refrigerate. New Bag/Syringe/Opynmv0408/19/2021 2:45 PM EDT10 mg ondansetron (PF) 8 mg injection (ZOFRAN) 8 mg, INTRAVENOUS, ONCE, 1 dose, On Thu08/19/21 at 1500, Administer 30 minutes prior to infusion. Given08/19/2021 2:45 PM EDT8 mgMedication OrderMAR ActionAction DateDoseRateSite CARBOplatin 213.2 mg in NaCl 0.9% 250 mL (PARAPLATIN) 213.2 mg (Target AUC = 2), INTRAVENOUS, Administer over 30 Minutes, ONCE, 1 dose, On Thu08/26/21 [id number], Approx Total Volume: mL EXP: 08/27/21 1031 Hazardous Chemotherapy Drug: Use appropriate PPE. Antineoplastic Irritant. New Bag/Syringe/Abfqbi0508/26/2021 11:14 AM FFA032.2 mg dexAMETHasone 10 mg/NS 50 mL (PYXIS) 10 mg ivpb (DECADRON) 10 mg, INTRAVENOUS, Administer over 15 Minutes, ONCE, 1 dose, On Thu08/26/21 at 1030, Administer 30minutes prior to infusion. Refrigerate. New Bag/Syringe/Bxoxue1208/26/2021 10:24 AM EDT10 mg ondansetron (PF) 8 mg injection (ZOFRAN) 8 mg, INTRAVENOUS, ONCE, 1 dose, On Thu08/26/21 at 1030, Administer 30 minutes prior to infusion. Given08/26/2021 10:24 AM EDT8 mgMedication OrderMAR ActionAction DateDoseRate Site CARBOplatin 221.2 mg in NaCl 0.9% 250 mL (PARAPLATIN) 221.2 mg (Target AUC = 2), INTRAVENOUS, Administer over 30 Minutes, ONCE, 1 dose, On Thu09/02/21 at 1030, Approx Total Volume: mL EXP:_09.03.21 @ 1015 Hazardous Chemotherapy Drug: Use appropriate PPE. Antineoplastic Irritant. New Bag/Syringe/Teccmr1209/02/2021 12:09 PM YGG017.2 mg dexAMETHasone 10 mg/NS 50 mL (PYXIS) 10 mg ivpb (DECADRON) 10 mg, INTRAVENOUS, Administer over 15 Minutes, ONCE, 1 dose, On Thu09/02/21 at 1030, Administer 30 minutes prior to infusion. Refrigerate. New Bag/Syringe/Sgovbs9709/02/2021 11:46 AM EDT10 mg ondansetron (PF) 8 mg injection (ZOFRAN) 8 mg, INTRAVENOUS, ONCE, 1 dose, On Thu09/02/21 at 1030, Administer 30 minutes prior to infusion. Given09/02/2021 11:46 AM EDT8 mgMedication OrderMAR ActionAction DateDoseRate Site NaCl 0.9% 1,000 mL INTRAVENOUS, at 999 mL/hr, Administer over 1 Hours, ONCE, 1 dose, On Thu09/16/21 at 1230 New Bag/Syringe/Lfsvzm9909/16/2021 12:20 PM MSJ866 mL/hr ondansetron (PF) 8 mg injection (ZOFRAN) 8 mg, INTRAVENOUS, NEEDED, 1 dose, Starting on Thu09/16/21 at 1210, Until Thu09/16/21 at 1240, Nausea/Vomiting - First Line - Parenteral Given09/16/2021 12:40 PM EDT8 mgMedication OrderMAR ActionAction DateDoseRate Site Tuberculin Skin Test, unspecified Given03/08/20180.1 ml Chief Complaint * ALEJO FLOYD is [...] had PVR study several months ago at [facility] which I requested. His cardiac and pulmonary [...] section and content) DATE CREATED AUTHOR 10/27/2017 [facility] DATE CREATED AUTHOR AUTHOR'S ORGANIZ ATION 04/10/2018 [facility] DATE CREATED AUTHOR AUTHOR'S ORGANIZ ATION 04/11/2018 [facility] DATE CREATED AUTHOR AUTHOR'S ORGANIZ ATION 04/17/2018 [facility] DATE CREATED AUTHOR AUTHOR'S ORGANIZ ATION 06/21/2021 [facility] DATE CREATED AUTHOR AUTHOR'S ORGANIZ ATION 06/25/2021 [facility] DATE CREATED AUTHOR AUTHOR'S ORGANIZ ATION 10/17/2021 [facility] DATE CREATED AUTHOR AUTHOR'S ORGANIZ ATION 01/29/2022 [facility] DATE CREATED AUTHOR AUTHOR'S ORGANIZ ATION 06/11/2022 [facility] DATE CREATED AUTHOR AUTHOR'S ORGANIZ ATION 06/11/2022 [facility] DATE CREATED AUTHOR AUTHOR'S ORGANIZ ATION 10/10/2022 [facility] DATE CREATED AUTHOR AUTHOR'S ORGANIZ ATION 11/03/2023 [facility] DATE CREATED AUTHOR AUTHOR'S ORGANIZ ATION 02/09/2024 [facility] DATE CREATED AUTHOR AUTHOR'S ORGANIZ ATION 08/01/2024 [facility] DATE CREATED AUTHOR AUTHOR'S ORGANIZ ATION 09/08/[address] [facility] DATE CREATED AUTHOR AUTHOR'S ORGANIZ ATION 09/13/[address] [facility] DATE CREATED AUTHOR AUTHOR'S ORGANIZ ATION 01/12/2025 [facility] DATE CREATED AUTHOR AUTHOR'S ORGANIZ ATION 02/08/2025 [facility] DATE CREATED AUTHOR AUTHOR'S ORGANIZ ATION 02/25/2025 [facility] Source Comments (unrecognize d section and content) In the event this informatio n is protected by the Federal Confidentiality of Alcohol and Drug Abuse Patient Records regulations: The Federal rules restrict any use of the information to criminally investigate or prosecute any alcohol or drug abuse patient.[facility] EastIn the event this information is protected by the Federal Confidentiality of Alcohol and Drug Abuse Patient Records regulations: The Federal rules restrict any use of the information to criminally investigate or prosecute any alcohol or drug abuse patient.[facility] EastIn the event this information is protected by the Federal Confidentiality of Alcohol and Drug Abuse Patient Records regulations: The Federal rules restrict any use of the information to criminally investigate or prosecute any alcohol or drug abuse patient.[facility] EastIn the event this information is protected by the Federal Confidentiality of Alcohol and Drug Abuse Patient Records regulations: The Federal rules restrict any use of the information to criminally investigate or prosecute any alcohol or drug abuse patient.[facility] EastIn the event this information is protected by the Federal Confidentiality of Alcohol and Drug Abuse Patient Records regulations: The Federal rules restrict any use of the information to criminally investigate or prosecute any alcohol or drug abuse patient.[facility] EastIn the event this information is protected by the Federal Confidentiality of Alcohol and Drug Abuse Patient Records regulations: The Federal rules restrict any use of the information to criminally investigate or prosecute any alcohol or drug abuse patient.[facility] EastIn the event this information is protected by the Federal Confidentiality of Alcohol and Drug Abuse Patient Records regulations: The Federal rules restrict any use of the information to criminally investigate or prosecute any alcohol or drug abuse patient.[facility] EastIn the event this information is protected by the Federal Confidentiality of Alcohol and Drug Abuse Patient Records regulations: The Federal rules restrict any use of the information to criminally investigate or prosecute any alcohol or drug abuse patient.[facility] EastIn the event this information is protected by the Federal Confidentiality of Alcohol and Drug Abuse Patient Records regulations: The Federal rules restrict any use of the information to criminally investigate or prosecute any alcohol or drug abuse patient.[facility] EastIn the event this information is protected by the Federal Confidentiality of Alcohol and Drug Abuse Patient Records regulations: The Federal rules restrict any use of the information to criminally investigate or prosecute any alcohol or drug abuse patient.[facility] EastIn the event this information is protected by the Federal Confidentiality of Alcohol and Drug Abuse Patient Records regulations: The Federal rules restrict any use of the information to criminally investigate or prosecute any alcohol or drug abuse patient.[facility] EastIn the event this information is protected by the Federal Confidentiality of Alcohol and Drug Abuse Patient Records regulations: The Federal rules restrict any use of the information to criminally investigate or prosecute any alcohol or drug abuse patient.[facility] EastIn the event this information is protected by the Federal Confidentiality of Alcohol and Drug Abuse Patient Records regulations: The Federal rules restrict any use of the information to criminally investigate or prosecute any alcohol or drug abuse patient.[facility] EastIn the event this information is protected by the Federal Confidentiality of Alcohol and Drug Abuse Patient Records regulations: The Federal rules restrict any use of the information to criminally investigate or prosecute any alcohol or drug abuse patient.[facility] EastIn the event this information is protected by the Federal Confidentiality of Alcohol and Drug Abuse Patient Records regulations: The Federal rules restrict any use of the information to criminally investigate or prosecute any alcohol or drug abuse patient.[facility] EastIn the event this information is protected by the Federal Confidentiality of Alcohol and Drug Abuse Patient Records regulations: The Federal rules restrict any use of the information to criminally investigate or prosecute any alcohol or drug abuse patient.[facility] EastIn the event this information is protected by the Federal Confidentiality of Alcohol and Drug Abuse Patient Records regulations: The Federal rules restrict any use of the information to criminally investigate or prosecute any alcohol or drug abuse patient.[facility] EastIn the event this information is protected by the Federal Confidentiality of Alcohol and Drug Abuse Patient Records regulations: The Federal rules restrict any use of the information to criminally investigate or prosecute any alcohol or drug abuse patient.[facility] EastIn the event this information is protected by the Federal Confidentiality of Alcohol and Drug Abuse Patient Records regulations: The Federal rules restrict any use of the information to criminally investigate or prosecute any alcohol or drug abuse patient.[facility] EastIn the event this information is protected by the Federal Confidentiality of Alcohol and Drug Abuse Patient Records regulations: The Federal rules restrict any use of the information to criminally investigate or prosecute any alcohol or drug abuse patient.[facility] EastIn the event this information is protected by the Federal Confidentiality of Alcohol and Drug Abuse Patient Records regulations: The Federal rules restrict any use of the information to criminally investigate or prosecute any alcohol or drug abuse patient.[facility] EastIn the event this information is protected by the Federal Confidentiality of Alcohol and Drug Abuse Patient Records regulations: The Federal rules restrict any use of the information to criminally investigate or prosecute any alcohol or drug abuse patient.[facility] EastIn the event this information is protected by the Federal Confidentiality of Alcohol and Drug Abuse Patient Records regulations: The Federal rules restrict any use of the information to criminally investigate or prosecute any alcohol or drug abuse patient.[facility] EastIn the event this information is protected by the Federal Confidentiality of Alcohol and Drug Abuse Patient Records regulations: The Federal rules restrict any use of the information to criminally investigate or prosecute any alcohol or drug abuse patient.[facility] EastIn the event this information is protected by the Federal Confidentiality of Alcohol and Drug Abuse Patient Records regulations: The Federal rules restrict any use of the information to criminally investigate or prosecute any alcohol or drug abuse patient.[facility]In the event this information is protected by the Federal Confidentiality of Alcohol and Drug Abuse Patient Records regulations: The Federal rules restrict any use of the information to criminally investigate or prosecute any alcohol or drug abuse patient.[facility] EastIn the event this information is protected by the Federal Confidentiality of Alcohol and Drug Abuse Patient Records regulations: The Federal rules restrict any use of the information to criminally investigate or prosecute any alcohol or drug abuse patient.[facility] EastIn the event this information is protected by the Federal Confidentiality of Alcohol and Drug Abuse Patient Records regulations: The Federal rules restrict any use of the information to criminally investigate or prosecute any alcohol or drug abuse patient.[facility] EastIn the event this information is protected by the Federal Confidentiality of Alcohol and Drug Abuse Patient Records regulations: The Federal rules restrict any use of the information to criminally investigate or prosecute any alcohol or drug abuse patient.[facility] EastIn the event this information is protected by the Federal Confidentiality of Alcohol and Drug Abuse Patient Records regulations: The Federal rules restrict any use of the information to criminally investigate or prosecute any alcohol or drug abuse patient.[facility] EastIn the event this information is protected by the Federal Confidentiality of Alcohol and Drug Abuse Patient Records regulations: The Federal rules restrict any use of the information to criminally investigate or prosecute any alcohol or drug abuse patient.[facility] EastIn the event this information is protected by the Federal Confidentiality of Alcohol and Drug Abuse Patient Records regulations: The Federal rules restrict any use of the information to criminally investigate or prosecute any alcohol or drug abuse patient.[facility] EastIn the event this information is protected by the Federal Confidentiality of Alcohol and Drug Abuse Patient Records regulations: The Federal rules restrict any use of the information to criminally investigate or prosecute any alcohol or drug abuse patient.[facility] EastIn the event this information is protected by the Federal Confidentiality of Alcohol and Drug Abuse Patient Records regulations: The Federal rules restrict any use of the information to criminally investigate or prosecute any alcohol or drug abuse patient.[facility] EastIn the event this information is protected by the Federal Confidentiality of Alcohol and Drug Abuse Patient Records regulations: The Federal rules restrict any use of the information to criminally investigate or prosecute any alcohol or drug abuse patient.[facility] EastIn the event this information is protected by the Federal Confidentiality of Alcohol and Drug Abuse Patient Records regulations: The Federal rules restrict any use of the information to criminally investigate or prosecute any alcohol or drug abuse patient.[facility] EastIn the event this information is protected by the Federal Confidentiality of Alcohol and Drug Abuse Patient Records regulations: The Federal rules restrict any use of the information to criminally investigate or prosecute any alcohol or drug abuse patient.[facility] EastIn the event this information is protected by the Federal Confidentiality of Alcohol and Drug Abuse Patient Records regulations: The Federal rules restrict any use of the information to criminally investigate or prosecute any alcohol or drug abuse patient.[facility] EastIn the event this information is protected by the Federal Confidentiality of Alcohol and Drug Abuse Patient Records regulations: The Federal rules restrict any use of the information to criminally investigate or prosecute any alcohol or drug abuse patient.[facility] EastIn the event this information is protected by the Federal Confidentiality of Alcohol and Drug Abuse Patient Records regulations: The Federal rules restrict any use of the information to criminally investigate or prosecute any alcohol or drug abuse patient.[facility] EastIn the event this information is protected by the Federal Confidentiality of Alcohol and Drug Abuse Patient Records regulations: The Federal rules restrict any use of the information to criminally investigate or prosecute any alcohol or drug abuse patient.[facility] EastIn the event this information is protected by the Federal Confidentiality of Alcohol and Drug Abuse Patient Records regulations: The Federal rules restrict any use of the information to criminally investigate or prosecute any alcohol or drug abuse patient.[facility] EastIn the event this information is protected by the Federal Confidentiality of Alcohol and Drug Abuse Patient Records regulations: The Federal rules restrict any use of the information to criminally investigate or prosecute any alcohol or drug abuse patient.[facility] EastIn the event this information is protected by the Federal Confidentiality of Alcohol and Drug Abuse Patient Records regulations: The Federal rules restrict any use of the information to criminally investigate or prosecute any alcohol or drug abuse patient.[facility] EastIn the event this information is protected by the Federal Confidentiality of Alcohol and Drug Abuse Patient Records regulations: The Federal rules restrict any use of the information to criminally investigate or prosecute any alcohol or drug abuse patient.[facility] EastIn the event this information is protected by the Federal Confidentiality of Alcohol and Drug Abuse Patient Records regulations: The Federal rules restrict any use of the information to criminally investigate or prosecute any alcohol or drug abuse patient.[facility] EastIn the event this information is protected by the Federal Confidentiality of Alcohol and Drug Abuse Patient Records regulations: The Federal rules restrict any use of the information to criminally investigate or prosecute any alcohol or drug abuse patient.[facility] EastIn the event this information is protected by the Federal Confidentiality of Alcohol and Drug Abuse Patient Records regulations: The Federal rules restrict any use of the information to criminally investigate or prosecute any alcohol or drug abuse patient.[facility] EastIn the event this information is protected by the Federal Confidentiality of Alcohol and Drug Abuse Patient Records regulations: The Federal rules restrict any use of the information to criminally investigate or prosecute any alcohol or drug abuse patient.[facility] EastIn the event this information is protected by the Federal Confidentiality of Alcohol and Drug Abuse Patient Records regulations: The Federal rules restrict any use of the information to criminally investigate or prosecute any alcohol or drug abuse patient.[facility] EastIn the event this information is protected by the Federal Confidentiality of Alcohol and Drug Abuse Patient Records regulations: The Federal rules restrict any use of the information to criminally investigate or prosecute any alcohol or drug abuse patient.[facility] EastIn the event this information is protected by the Federal Confidentiality of Alcohol and Drug Abuse Patient Records regulations: The Federal rules restrict any use of the information to criminally investigate or prosecute any alcohol or drug abuse patient.[facility] EastIn the event this information is protected by the Federal Confidentiality of Alcohol and Drug Abuse Patient Records regulations: The Federal rules restrict any use of the information to criminally investigate or prosecute any alcohol or drug abuse patient.[facility] EastIn the event this information is protected by the Federal Confidentiality of Alcohol and Drug Abuse Patient Records regulations: The Federal rules restrict any use of the information to criminally investigate or prosecute any alcohol or drug abuse patient.[facility] EastIn the event this information is protected by the Federal Confidentiality of Alcohol and Drug Abuse Patient Records regulations: The Federal rules restrict any use of the information to criminally investigate or prosecute any alcohol or drug abuse patient.[facility] EastIn the event this information is protected by the Federal Confidentiality of Alcohol and Drug Abuse Patient Records regulations: The Federal rules restrict any use of the information to criminally investigate or prosecute any alcohol or drug abuse patient.[facility] EastIn the event this information is protected by the Federal Confidentiality of Alcohol and Drug Abuse Patient Records regulations: The Federal rules restrict any use of the information to criminally investigate or prosecute any alcohol or drug abuse patient.[facility] EastIn the event this information is protected by the Federal Confidentiality of Alcohol and Drug Abuse Patient Records regulations: The Federal rules restrict any use of the information to criminally investigate or prosecute any alcohol or drug abuse patient.[facility] EastIn the event this information is protected by the Federal Confidentiality of Alcohol and Drug Abuse Patient Records regulations: The Federal rules restrict any use of the information to criminally investigate or prosecute any alcohol or drug abuse patient.[facility] EastIn the event this information is protected by the Federal Confidentiality of Alcohol and Drug Abuse Patient Records regulations: The Federal rules restrict any use of the information to criminally investigate or prosecute any alcohol or drug abuse patient.[facility] EastIn the event this information is protected by the Federal Confidentiality of Alcohol and Drug Abuse Patient Records regulations: The Federal rules restrict any use of the information to criminally investigate or prosecute any alcohol or drug abuse patient.[facility] EastIn the event this information is protected by the Federal Confidentiality of Alcohol and Drug Abuse Patient Records regulations: The Federal rules restrict any use of the information to criminally investigate or prosecute any alcohol or drug abuse patient.[facility] EastIn the event this information is protected by the Federal Confidentiality of Alcohol and Drug Abuse Patient Records regulations: The Federal rules restrict any use of the information to criminally investigate or prosecute any alcohol or drug abuse patient.[facility] EastIn the event this information is protected by the Federal Confidentiality of Alcohol and Drug Abuse Patient Records regulations: The Federal rules restrict any use of the information to criminally investigate or prosecute any alcohol or drug abuse patient.[facility] EastIn the event this information is protected by the Federal Confidentiality of Alcohol and Drug Abuse Patient Records regulations: The Federal rules restrict any use of the information to criminally investigate or prosecute any alcohol or drug abuse patient.[facility] EastIn the event this information is protected by the Federal Confidentiality of Alcohol and Drug Abuse Patient Records regulations: The Federal rules restrict any use of the information to criminally investigate or prosecute any alcohol or drug abuse patient.[facility] EastIn the event this information is protected by the Federal Confidentiality of Alcohol and Drug Abuse Patient Records regulations: The Federal rules restrict any use of the information to criminally investigate or prosecute any alcohol or drug abuse patient.[facility] EastIn the event this information is protected by the Federal Confidentiality of Alcohol and Drug Abuse Patient Records regulations: The Federal rules restrict any use of the information to criminally investigate or prosecute any alcohol or drug abuse patient.[facility] EastIn the event this information is protected by the Federal Confidentiality of Alcohol and Drug Abuse Patient Records regulations: The Federal rules restrict any use of the information to criminally investigate or prosecute any alcohol or drug abuse patient.[facility] EastIn the event this information is protected by the Federal Confidentiality of Alcohol and Drug Abuse Patient Records regulations: The Federal rules restrict any use of the information to criminally investigate or prosecute any alcohol or drug abuse patient.[facility] EastIn the event this information is protected by the Federal Confidentiality of Alcohol and Drug Abuse Patient Records regulations: The Federal rules restrict any use of the information to criminally investigate or prosecute any alcohol or drug abuse patient.[facility] EastIn the event this information is protected by the Federal Confidentiality of Alcohol and Drug Abuse Patient Records regulations: The Federal rules restrict any use of the information to criminally investigate or prosecute any alcohol or drug abuse patient.[facility] EastIn the event this information is protected by the Federal Confidentiality of Alcohol and Drug Abuse Patient Records regulations: The Federal rules restrict any use of the information to criminally investigate or prosecute any alcohol or drug abuse patient.[facility] EastIn the event this information is protected by the Federal Confidentiality of Alcohol and Drug Abuse Patient Records regulations: The Federal rules restrict any use of the information to criminally investigate or prosecute any alcohol or drug abuse patient.[facility] Reason for Visit (unrecogniz ed section and content) ReasonOnset DateCommentsRefill Vnpaado11/29/2022ReasonCommentsNutrition AssessmentReasonCommentsHead and Neck CancerReasonCommentsCare Coordination AntiemeticsReasonCommentsConsultReasonCommentsChemotherapy TreatmentCarboplatin ReasonCommentsPT EvalPatient EducationSpecialtyDiagnoses / ProceduresReferred By ContactReferred To ContactREHAB AND SPORTS THERAPY INS Diagnoses Current smoker Procedures CONSULT TO PHYSICAL THERAPY PHYSICAL THERAPY EVALUATION HIGH COMPLEX 45 MINS Darien Olivarez MD [address] [place] [address] [facility] [place] [address] [place] [id number] Referral IDStatusReasonStart DateExpiration DateVisits RequestedVisits [id number] Auto-Generated Referral [id number] CoordinationEducation MaterialReason CommentsRadiotherapy On-treatment VisitSpecialtyDiagnoses / ProceduresReferred By ContactReferred To Contact Diagnoses Cancer of base of tongue (HCC) Procedures CARBOPLATIN INJECTION Esdras Cahs MD [address] [facility] [address] Yvan Treat [address] [place] [address] Referral IDStatusReasonStwalterboro DateExpiration DateVisits RequestedVisits [id number] [id number] NtckocqpyslaI2K9 Post Treatment CallReasonCommentstongue cancerReasonComments Nutrition CounselingReferral IDStatusReasonStart DateExpiration DateVisits RequestedVisits [id number]/4/20225/30/081517ApeykdLquhsgec oropharnyx cancerReasonCommentsCancer of base of tongueOTVReasonCommentsPatient UpdateneuropathyReasonCommentsSocial Work ServicesGas card programReferral ID StatusReasonStart DateExpiration DateVisits RequestedVisits [id number] [id number] and Neck CancerurgentReason CommentsCare CoordinationXrayReasonCommentsCare CoordinationPt UpdateReason CommentsNauseaRadiation CancelledReasonCommentsCare CoordinationHospital AdmissionReasonCommentsCare CoordinationDischarge Follow UpReasonCommentsHead and Neck CancerHospital Follow UpReasonCommentsOropharynx cancer1 week follow up ReasonCommentsNutrition TelephoneReasonCommentstongue cancer'follow upReason Onset DateCommentsRefill Wkwcysb04/26/2022ReasonCommentstongue cancerFollow up ReasonCommentsHead and Neck CancerReasonCommentsHead and Neck CancerFollow up ReasonCommentsOrdersReasonOnset DateCommentsRefill Kkiiahb5111/13/2022Reason CommentsRefill RequestReasonCommentsFollow-pq6vYtdlqzSakxkmckCyie and Neck CancerFollow upReasonCommentsRadiology NMSpecialtyDiagnoses / ProceduresReferred By ContactReferred To ContactMOLECULAR & FUNCTIONAL IMAGING Diagnoses Cancer of base of tongue (HCC) Malaise and fatigue Procedures NM PET/CT SKULL-THIGH SUBSEQUENT PET IMAGING CT ATTENUATION SKULL BASE MID-THIGH Esdras Cash MD [address] [place] [address] [place] [address] [facility] [address] [place] [address] Referral IDStatusReT[facility] DateExpiration DateVisits RequestedVisits [id number] Auto-Generated Referral /[id number] / ProceduresReferred By ContactReferred To ContactMOLECULAR & FUNCTIONAL IMAGING Diagnoses Cancer of base of tongue (HCC) Procedures NM PET/CT SKULL-THIGH SUBSEQUENT PET IMAGING CT ATTENUATION SKULL BASE MID-THIGH Esdras Cash MD [address] [place] [address] [place] [address] [facility] [address] [place] [address] Referral IDStatusasonPort [place] DateExpiration DateVisits RequestedVisits [id number] Auto-Generated Referral OON/Self Pay Override /[id number] CTSpecialtyDiagnoses / Procedures Referred By ContactReferred To ContactCT IMAGING Diagnoses Oropharnyx cancer (HCC) Procedures CT CHEST W IVCON DIAGNOSTIC COMPUTED TOMOGRAPHY THORAX W/CONTRAST Kathrine Carpenter MD [address] [place] [address] [place] [address] [facility] [place] [address] Referral IDStatusReasonStart DateExpiration DateVisits RequestedVisits [id number] Auto-Generated Referral /[id number] IDStatusReasonStart DateExpiration DateVisits RequestedVisits [id number] Auto-Generated Referral /[id number] CTSpecialtyDiagnoses / Procedures Referred By ContactReferred To ContactMOLECULAR & FUNCTIONAL IMAGING Diagnoses Oropharnyx cancer (HCC) Procedures NM PET/CT SKULL-THIGH SUBSEQUENT PET IMAGING CT ATTENUATION SKULL BASE MID-THIGH Kathrine Carpenter MD [address] [place] [address] [place] [address] [facility] [address] [place] [address] Referral IDStatusReasonStart DateExpiration DateVisits RequestedVisits [id number] Auto-Generated Referral /[id number] / ProceduresReferred By ContactReferred To ContactMOLECULAR & FUNCTIONAL IMAGING Diagnoses Malignant neoplasm of head, face and neck (HCC) Procedures NM PET/CT SKULL-THIGH SUBSEQUENT TUMOR IMAGING PET W/CONC CT SKULL-THIGH Kathrine Carpenter MD [address] [place] [address] [place] [address] [facility] [address] [place] [address] Referral IDStatusReasonStart DateExpiration DateVisits RequestedVisits [id number]/3/20211/361489RavqslNiwqlsddLrzhAkpxhgElwdj Date CommentsMed Cvblki184ReasonCommentsPainReasonCommentsFollow-upEr f/u ReasonOnset DateCommentsMed Xwzkfn324ReasonCommentsMed RefillReasonOnset DateCommentsRefill Dcnczma35/02/2024ReasonCommentsMedicare Annual Wellness Visit SubsequentWellnessReasonCommentsFollow-up6 monthSpecialtyDiagnoses / Procedures Referred By ContactReferred To ContactCardiology Diagnoses PVD (peripheral vascular disease) ([facility]) Procedures Follow Up In Cardiology Carmen Neely MD [address] [facility] [address], [address] [address] Carmen Neely MD [address] [facility] [address], [place] [address] Referral IDStatusReasonStart DateExpiration DateVisits RequestedVisits [id number]/3/20241/051294AifpomZclxu DateCommentsMed Refill 12/31/2023easonOnset DateCommentsMed Zsvlld1201/05/2024easonCommentsFollow-up ReasonOnset OprzVmucgxiaRftxa25/09/2025ReasonOnset DateCommentsMed Refill 05/26/2024ReasonCommentsFollow-upNeeds order for rollator walkerReasonComments PainNew PatientNumbnessSwellingReasonCommentsRadio Gen W10NzuboxaueXqhqyudvz / ProceduresReferred By ContactReferred To ContactXR IMAGING Diagnoses Pain Procedures XR SHOULDER GENERAL 3V OR MORE AP/TRUE AP/OTHER RIGHT RADEX SHOULDER COMPLETE MINIMUM 2 VIEWS Hebert Miguel MD [address] [place] [address] Phone: tel: fax: [facility] Referral IDStatusReasonStart DateExpiration DateVisits RequestedVisits [id number] Auto-Generated Referral /[id number] DateCommentsMed Pfszne0906/24/2024ReasonOnset Date CommentsMed Cmldfp3707/25/2024ReasonOnset DateCommentsSTROKE appt07/26/2024Reason Onset DateCommentsMed Wkhlsy0708/24/2024ReasonOnset DateCommentsMed Refill 09/06/2024ReasonOnset DateCommentsRefill Drtgdob0109/06/2024ReasonComments Follow-upHospital f/up SOBReasonCommentsFollow-up6 month Follow up for Peripheral Vascular diseaseSpecialtyDiagnoses / ProceduresReferred By Contact Referred To ContactCardiology Diagnoses PVD (peripheral vascular disease) (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 Pt had xrays with [facility] back in july. Patient had injured his foot last February, saw dr. Lacy a couple months later. States foot got caught between car and cement barrier while getting gas one day. No treatments, patient reports still having pain and swelling. 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 SS: 12 Care Teams (unrecognized sec tion and content) Team MemberRelationshipSpecialtyStart DateEnd Date Gildardo Lacy [address] [place] [address] PCP - GeneralFamily Practice07/16/20 Esdras Cash MD [address] [place] [address] [place] [address] PhysicianHematology/Oncology08/07/20 Nathaly Biggs, ALEXY.IMPA[employer] RETAIL SERVICE MERCHANDISER [address] [place] [address] Nurse PractitionerHematology/Oncology08/07/20 Cynthia Cutler, RN [address] [facility] [place] [address] Specialty Care CoordinatorHematology/Oncology08/07/20 Kathrine Carpenter MD [address] [facility] [place] [address] PhysicianRadiation Oncology08/07/20Team MemberRelationshipSpecialtyStart DateEnd Date Gildardo Lacy [address] [place] [address] [facility]/16/20 Esdras Cash MD [address] [place] [address] PhysicianHematology/Oncology08/07/20 Nathaly Biggs, PERFUME MAKER.[employer]PA[employer]ICE MERCHANDISER [address] [place] [address] Nurse PractitionerHematology/Oncology08/07/20 Cynthia Cutler, RN [address] [place] [address] Specialty Care CoordinatorHematology/Oncology08/07/20 Kathrine Carpenter MD [address] [place] [address] PhysicianRadiation Oncology08/07/20Team MemberRelationshipSpecialtyStart DateEnd Date Gildardo Lacy [address] [place] [address] PCP - [facility]07/16/20 Esdras Cash MD [address] [place] [address] PhysicianHematology/Oncology08/07/20 Nathaly Biggs, PERFUME MAKER.[employer]ICE MERCHANDISER [address] [facility] [place] [address] Nurse PractitionerHematology/Oncology08/07/20 Cynthia Cutler, SCOTT [address] [place] [address] Specialty Care CoordinatorHematology/Oncology08/07/20 Kathrine Carpenter MD [address] [place] [address] PhysicianRadiation Oncology08/07/20Team MemberRelationshipSpecialtyStart DateEnd Date Gildardo Lacy [address] [place] [address] PCP - [facility]07/16/20 Esdras Cash MD [address] [place] [address] PhysicianHematology/Oncology08/07/20 Nathaly Biggs, PERFUME MAKER.[employer]PA[employer]ICE MERCHANDISER [address] [place] [address] Nurse PractitionerHematology/Oncology08/07/20 Cynthia Cutler, SCOTT [address] [place] [address] Specialty Care CoordinatorHematology/Oncology08/07/20 Kathrine Carpenter MD [address] [place] [address] PhysicianRadiation Oncology08/07/20Team MemberRelationshipSpecialtyStart DateEnd Date Gildardo Lacy [address] [place] [address] PCP - GeneralFamily Practice07/16/20 Esdras Cash MD [address] [place], [place] [address] PhysicianHematology/Oncology08/07/20 Nathaly Biggs, PERFUME MAKER.[employer]PA[employer] SERVICE MERCHANDISER [address] [facility] [place] [address] Nurse PractitionerHematology/Oncology08/07/20 Cynthia Cutler, RN [address] [facility] [place] [address] Specialty Care CoordinatorHematology/Oncology08/07/20 Kathrine Carepnter MD [address] [facility] [place] [address] PhysicianRadiation Oncology08/07/20Team MemberRelationshipSpecialtyStart DateEnd Date Gildardo Lacy [address] [place] [address] PCP - GeneralFamily Practice07/16/20 Esdras Cash MD [address] [facility] [place] [address] PhysicianHematology/Oncology08/07/20 Nathaly Biggs, PERFUME MAKER.[facility] [address] [place] [address] Nurse PractitionerHematology/Oncology08/07/20 Cynthia Cutler, RN [address] [place] [address] Specialty Care CoordinatorHematology/Oncology08/07/20 Kathrine Carpenter MD [address] [place] [address] PhysicianRadiation Oncology08/07/20Team MemberRelationshipSpecialtyStart DateEnd Date Gildardo Lacy [address] [place] [address] PCP - GeneralFamily Practice07/16/20 Esdras Cash MD [address] [place] [address] PhysicianHematology/Oncology08/07/20 Nathaly Biggs, PERFUME MAKER.[employer]PA[employer]ICE MERCHANDISER [address] [facility] [place] [address] Nurse PractitionerHematology/Oncology08/07/20 Cynthia Cutler, SCOTT [address] [place] [address] Specialty Care CoordinatorHematology/Oncology08/07/20 Kathrine Carpenter MD [address] [place] [address] PhysicianRadiation Oncology08/07/20Team MemberRelationshipSpecialtyStart DateEnd Date Gildardo Lacy [address] [place] [address] PCP - GeneralFamily Practice07/16/20 Esdras Cash MD [address] [place] [address] PhysicianHematology/Oncology08/07/20 Nathaly Biggs, PERFUME MAKER.[employer]PA[employer]ICE MERCHANDISER [address] [facility] [place] [address] Nurse PractitionerHematology/Oncology08/07/20 Cynthia Cutler, RN [address] [facility] [place] [address] Specialty Care CoordinatorHematology/Oncology08/07/20 Kathrine Carpenter MD [address] [facility] [place] [address] PhysicianRadiation Oncology08/07/20Team MemberRelationshipSpecialtyStart DateEnd Date Gildardo Lacy [address] [place] [address] PCP - GeneralFamily Practice07/16/20 Esdras Cash MD [address] [facility] [place] [address] PhysicianHematology/Oncology08/07/20 Nathaly Biggs, PERFUME MAKER.[employer]PA[employer] SERVICE MERCHANDISER [address] [facility] [place] [address] Nurse PractitionerHematology/Oncology08/07/20 Cynthia Cutler, SCOTT [address] [facility] [place] [address] Specialty Care CoordinatorHematology/Oncology08/07/20 Kathrine Carpenter MD [address] [place] [address] PhysicianRadiation Oncology08/07/20Team MemberRelationshipSpecialtyStart DateEnd Date Gildardo Lacy [address] [address] PCP - GeneralFamily Practice07/16/20 Esdras Cash MD [address] [place] [address] PhysicianHematology/Oncology08/07/20 Nathaly Biggs, PERFUME MAKER.[employer] MERCHANDISER [address] [place] [address] Nurse PractitionerHematology/Oncology08/07/20 Cynthia Cutler, SCOTT [address] [place] [address] Specialty Care CoordinatorHematology/Oncology08/07/20 Kathrine Carpenter MD [address] [place] [address] PhysicianRadiation Oncology08/07/20Team MemberRelationshipSpecialtyStart DateEnd Date Gildardo Lacy [address] [place] [address] PCP - GeneralFamily Practice07/16/20 Esdras Cash MD [address] [place] [address] PhysicianHematology/Oncology08/07/20 Nathaly Biggs, PERFUME MAKER.IMPACT RET[employer] SERVICE MERCHANDISER [address] [facility] [place] [address] Nurse PractitionerHematology/Oncology08/07/20 Cynthia Cutler RN [address] [place] [address] Specialty Care CoordinatorHematology/Oncology08/07/20 Kathrine Carpenter MD [address] [place] [address] PhysicianRadiation Oncology08/07/20Team MemberRelationshipSpecialtyStart DateEnd Date Gildardo Lacy [address] [address] PCP - GeneralFamily Practice07/16/20 Esdras Cash MD [address] [place] [address] PhysicianHematology/Oncology08/07/20 Nathaly Biggs, PERFUME MAKER.[employer]ICE MERCHANDISER [address] [facility] [place] [address] Nurse PractitionerHematology/Oncology08/07/20 Cynthia Cutler, RN [address] [place] [address] Specialty Care CoordinatorHematology/Oncology08/07/20 Kathrine Carpenetr MD [address] [place] [address] PhysicianRadiation Oncology08/07/20Team MemberRelationshipSpecialtyStart DateEnd Date Gildardo Lacy [address] [place] [address] PCP - GeneralFamily Practice07/16/20 Esdras Cash MD [address] [place] [address] PhysicianHematology/Oncology08/07/20 Nathaly Biggs, ALEXY.IMPA[employer] RET[employer] SERVICE MERCHANDISER [address] [facility] [place] [address] Nurse PractitionerHematology/Oncology08/07/20 Cynthia Cutler, RN [address] [place] [address] Specialty Care CoordinatorHematology/Oncology08/07/20 Kathrine Carpenter MD [address] [place] [address] PhysicianRadiation Oncology08/07/20Team MemberRelationshipSpecialtyStart DateEnd Date Gildardo Lacy [address] [place] [address] PCP - GeneralFamily Practice07/16/20 Esdras Cash MD [address] [place] [address] PhysicianHematology/Oncology08/07/20 Nathaly Biggs, PERFUME MAKER.[facility] [address] [place] [address] Nurse PractitionerHematology/Oncology08/07/20 Cynthia Cutler, SCOTT [address] [place] [address] Specialty Care CoordinatorHematology/Oncology08/07/20 Kathrine Carpenter MD [address] [place] [address] PhysicianRadiation Oncology08/07/20Team MemberRelationshipSpecialtyStart DateEnd Date Gildardo Lacy [address] [place] [address] P[facility] - [facility]/16/20 Esdras Cash MD [address] [place] [address] PhysicianHematology/Oncology08/07/20 Nathaly Biggs, PERFUME MAKER.[facility] [address] [place] [address] Nurse PractitionerHematology/Oncology08/07/20 Cynthia Cutler, SCOTT [address] [place] [address] Specialty Care CoordinatorHematology/Oncology08/07/20 Kathrine Carpenter MD [address] [place] [address] PhysicianRadiation Oncology08/07/20Team MemberRelationshipSpecialtyStart DateEnd Date [place] [address] PCP - GeneralFamily Practice07/16/20 Esdras Cash MD [address] [place] [address] PhysicianHematology/Oncology08/07/20 Nathaly Biggs, PERFUME MAKER.[employer] MERCHANDISER [address] [place] [address] Nurse PractitionerHematology/Oncology08/07/20 Cynthia Cutler, RN [address] [place] [address] Specialty Care CoordinatorHematology/Oncology08/07/20 Kathrine Carpenter MD [address] [place] [address] PhysicianRadiation Oncology08/07/20Team MemberRelationshipSpecialtyStart DateEnd Date Gildardo [facility] [place] [address] PCP - GeneralFamily Practice07/16/20 Esdras Cash MD [address] [place] [address] PhysicianHematology/Oncology08/07/20 Nathaly Biggs, PERFUME MAKER.[employer] MERCHANDISER [address] [place] [address] Nurse PractitionerHematology/Oncology08/07/20 Cynthia Cutler, RN [address] [place] [address] Specialty Care CoordinatorHematology/Oncology08/07/20 Kathrine Carpenter MD [address] [place] [address] PhysicianRadiation Oncology08/07/20Team MemberRelationshipSpecialtyStart DateEnd Date Gildardo Lacy [address] [place] [address] PCP - GeneralFamily Practice07/16/20 Esdras Cash MD [address] [place] [address] PhysicianHematology/Oncology08/07/20 Nathaly Biggs, PERFUME MAKER.[employer] MERCHANDISER [address] [place] [address] Nurse PractitionerHematology/Oncology08/07/20 Cynthia Cutler, RN [address] [facility] [place] [address] Specialty Care CoordinatorHematology/Oncology08/07/20 Kathrine Carpenter MD [address] [facility] [place] [address] PhysicianRadiation Oncology08/07/20Te MemberRelationshipSpecialtyStart DateEnd Date Gildardo Lacy [address] [place] [address] PCP - GeneralFamily Practice07/16/20 Esdras Cash MD [address] [place] [address] PhysicianHematology/Oncology08/07/20 Nathaly Biggs, PERFUME MAKER.[employer] MERCHANDISER [address] [facility] [place] [address] Nurse PractitionerHematology/Oncology08/07/20 Cynthia Cutler, RN [address] [facility] [place] [address] Specialty Care CoordinatorHematology/Oncology4/6/21 Kathrine Carpenter MD [address] [facility] [place] [address] PhysicianRadiation Oncology08/07/20Team MemberRelationshipSpecialtyStart DateEnd Date Gildardo Lacy [address] [place] [address] PCP - GeneralFamily Practice07/16/20 Esdras Cash MD [address] [facility] [place] [address] PhysicianHematology/Oncology08/07/20 Nathaly Biggs, PERFUME MAKER.[employer] MERCHANDISER [address] [facility] [place] [address] Nurse PractitionerHematology/Oncology08/07/20 Cynthia Cutler, SCOTT [address] [place] [address] Specialty Care CoordinatorHematology/Oncology08/07/20 Kathrine Carpenter MD [address] [place] [address] PhysicianRadiation Oncology08/07/20Team MemberRelationshipSpecialtyStart DateEnd Date Gildardo Lacy [address] [place] [address] PCP - GeneralFamily Practice07/16/20 Esdras Cash MD [address] [place] [address] PhysicianHematology/Oncology08/07/20 Nathaly Biggs, PERFUME MAKER.[employer] MERCHANDISER [address] [facility] [place] [address] Nurse PractitionerHematology/Oncology08/07/20 Cynthia Cutler, SCOTT [address] [place] [address] Specialty Care CoordinatorHematology/Oncology08/07/20 Kathrine Carpenter MD [address] [place] [address] PhysicianRadiation Oncology08/07/20Team MemberRelationshipSpecialtyStart DateEnd Date Gildardo Lacy [address] [place] [address] PCP - GeneralFamily Practice07/16/20 Esdras Cash MD [address] [place] [address] PhysicianHematology/Oncology08/07/20 Nathaly Biggs, PERFUME MAKER.[facility] [address] [place] [address] Nurse PractitionerHematology/Oncology08/07/20 Cynthia Cutler, SCOTT [address] [place] [address] Specialty Care CoordinatorHematology/Oncology08/07/20 Kathrine Carpenter MD [address] [place] [address] PhysicianRadiation Oncology08/07/20Te MemberRelationshipSpecialtyStart DateEnd Date Gildardo Lacy [address] [place] [address] PCP - GeneralFamily Practice07/16/20 Esdras Cash MD [address] [facility] [place] [address] PhysicianHematology/Oncology08/07/20 Nathaly Biggs, PERFUME MAKER.[employer] MERCHANDISER [address] [facility] [place] [address] Nurse PractitionerHematology/Oncology08/07/20 Cynthia Cutler, RN [address] [facility] [place] [address] Specialty Care CoordinatorHematology/Oncology08/07/20 Kathrine Carpenter MD [address] [facility] [place] [address] PhysicianRadiation Oncology08/07/20Team MemberRelationshipSpecialtyStart DateEnd Date Gildardo Lacy [address] [place] [address] PCP - GeneralFamily Practice07/16/20 Esdras Cash MD [address] [facility] [place] [address] PhysicianHematology/Oncology08/07/20 Nathaly Biggs, PERFUME MAKER.[employer] MERCHANDISER [address] [facility] [place] [address] Nurse PractitionerHematology/Oncology08/07/20 Cynthia Cutler, SCOTT [address] [facility] [place] [address] Specialty Care CoordinatorHematology/Oncology08/07/20 Kathrine Carpenter MD [address] [facility] [place] [address] PhysicianRadiation Oncology08/07/20 Amira Powell LSW Social Worker09/16/21Team MemberRelationshipSpecialtyStart DateEnd Date Gildardo Lacy [address] [place] [address] PCP - GeneralFamily Practice07/16/20 Esdras Cash MD [address] [facility] [place], [place] [address] PhysicianHematology/Oncology08/07/20 Nathaly Biggs, PERFUME MAKER.[facility] [address] [place] [address] Nurse PractitionerHematology/Oncology08/07/20 Cynthia Cutler, RN [address] [place] [address] [place] [address] Specialty Care CoordinatorHematology/Oncology08/07/20 Kathrine Carpenter MD [address] [facility] [place] [address] PhysicianRadiation Oncology08/07/20 Amira Powell LSW Social Worker09/16/21Team MemberRelationshipSpecialtyStart DateEnd Date Gildardo L[facility] [place] [address] PCP - GeneralFamily Practice07/16/20 Esdras Cash MD [address] [facility] [place] [address] PhysicianHematology/Oncology08/07/20 Nathaly Biggs, PERFUME MAKER.[employer]CH[employer]ISER [address] [facility] [place] [address] Nurse PractitionerHematology/Oncology08/07/20 Cynthia Cutler, RN [address] [facility] [place] [address] Specialty Care CoordinatorHematology/Oncology08/07/20 Kathrine Carpenter MD [address] [facility] [place] [address] PhysicianRadiation Oncology08/07/20 Amira Powell [facility] Social Worker09/16/21Team MemberRelationshipSpecialtyStart DateEnd Date Gildardo Lacy [address] [place] [address] PCP - GeneralFamily Practice07/16/20 Esdras Cash MD [address] [facility] [place] [address] PhysicianHematology/Oncology08/07/20 Nathaly Biggs, PERFUME MAKER.[employer] MERCHANDISER [address] [facility] [place] [address] Nurse PractitionerHematology/Oncology08/07/20 Cynthia Cutler, RN [address] [facility] [place] [address] Specialty Care CoordinatorHematology/Oncology08/07/20 Kathrine Carpenter MD [address] [facility] [place] [address] PhysicianRadiation Oncology08/07/20 Amira Powell, [facility] Social Worker09/16/21Team MemberRelationshipSpecialtyStart DateEnd Date Gildardo Lacy [address] [place] [address] PCP - GeneralFamily Practice07/16/20 Esdras Cash MD [address] [facility] [place] [address] PhysicianHematology/Oncology08/07/20 Nathaly Biggs, PERFUME MAKER.[employer]PA[employer]ICE MERCHANDISER [address] [facility] [place] [address] Nurse PractitionerHematology/Oncology08/07/20 Cynthia Cutler, RN [address] [facility] [place] [address] Specialty Care CoordinatorHematology/Oncology08/07/20 Kathrine Carpenter MD [address] [facility] [place] [address] PhysicianRadiation Oncology08/07/20 Amira Powell, [facility] Social Worker09/16/21Team MemberRelationshipSpecialtyStart DateEnd Date Gildardo Lacy [address] [place] [address] PCP - GeneralFamily Practice07/16/20 Esdras Cash MD [address] [facility] [place] [address] PhysicianHematology/Oncology08/07/20 Nathaly Biggs, PERFUME MAKER.[employer] MERCHANDISER [address] [facility] [place] [address] Nurse PractitionerHematology/Oncology08/07/20 Cynthia Cutler, RN [address] [facility] [place] [address] Specialty Care CoordinatorHematology/Oncology08/07/20 Kathrine Carpenter MD [address] [facility] [place] [address] PhysicianRadiation Oncology08/07/20 Amira Powell, [facility] Social Worker09/16/21Team MemberRelationshipSpecialtyStart DateEnd Date Gildardo Lacy [address] [place] [address] PCP - GeneralFamily Practice07/16/20 Esdras Cash MD [address] [facility] [place] [address] PhysicianHematology/Oncology08/07/20 Nathaly Biggs PERFUME MAKER.[employer] MERCH[employer]ISER [address] [facility] [place] [address] Nurse PractitionerHematology/Oncology08/07/20 Cynthia Cutler, SCOTT [address] [facility] [place] [address] Specialty Care CoordinatorHematology/Oncology08/07/20 Kathrine Carpenter MD [address] [facility] [place] [address] PhysicianRadiation Oncology08/07/20 Amira Powell LSW Social Worker09/16/21Team MemberRelationshipSpecialtyStart DateEnd Date Gildardo Lacy [address] [place] [address] PCP - GeneralFamily Practice07/16/20 Esdras Cash MD [address] [facility] [place] [address] PhysicianHematology/Oncology08/07/20 Nathaly Biggs, PERFUME MAKER.[employer] MERCH[employer]ISER [address] [facility] [place] [address] Nurse PractitionerHematology/Oncology08/07/20 Cynthia Cutler, SCOTT [address] [facility] [place] [address] Specialty Care CoordinatorHematology/Oncology08/07/20 Kathrine Carpenter MD [address] [facility] [place] [address] PhysicianRadiation Oncology08/07/20 Amira Powell LSW Social Worker09/16/21Team MemberRelationshipSpecialtyStart DateEnd Date Gildardo Lacy [address] [place] [address] PCP - GeneralFamily Practice07/16/20 Esdras Cash MD [address] [facility] [place] [address] PhysicianHematology/Oncology08/07/20 Nathaly Biggs, PERFUME MAKER.[facility] [address] [facility] [place] [address] Nurse PractitionerHematology/Oncology08/07/20 Cynthia Cutler, RN [address] [facility] [place] [address] Specialty Care CoordinatorHematology/Oncology08/07/20 Kathrine Carpenter MD [address] [facility] [place] [address] PhysicianRadiation Oncology08/07/20 Amira Powell LSW Social Worker09/16/21Team MemberRelationshipSpecialtyStart DateEnd Date Gildardo Lacy [address] [facility] [place] [address] PCP - GeneralFamily Practice07/16/20 Esdras Cash MD [address] [facility] [place] [address] PhysicianHematology/Oncology08/07/20 Nathaly Biggs, PERFUME MAKER.[facility] [address] [facility] [place] [address] Nurse PractitionerHematology/Oncology08/07/20 Cynthia Cutler, RN [address] [facility] [place] [address] Specialty Care CoordinatorHematology/Oncology08/07/20 Kathrine Carpenter MD [address] [facility] [address] [facility] [address] [place], [place] [address] PhysicianRadiation Oncology08/07/20 Amira Powell, [facility] Social Worker09/16/21Team MemberRelationshipSpecialtyStart DateEnd Date Gildardo Lacy [address] [place] [address] PCP - GeneralFamily Practice07/16/20 Esdras Cash MD [address] [facility] [place] [address] PhysicianHematology/Oncology08/07/20 Nathaly Biggs, PERFUME MAKER.[employer] MERCHANDISER [address] [facility] [place] [address] Nurse PractitionerHematology/Oncology08/07/20 Cynthia Cutler, SCOTT [address] [facility] [place] [address] Specialty Care CoordinatorHematology/Oncology08/07/20 Kathrine Carpenter MD [address] [facility] [place] [address] PhysicianRadiation Oncology08/07/20 Amira Powell, [facility] Social Worker09/16/21Team MemberRelationshipSpecialtyStart DateEnd Date Gildardo Lacy [address] [place] [address] PCP - GeneralFamily Practice07/16/20 Esdras Cash MD [address] [facility] [place] [address] PhysicianHematology/Oncology08/07/20 Nathaly Biggs, PERFUME MAKER.[employer] MERCHANDISER [address] [facility] [place] [address] Nurse PractitionerHematology/Oncology08/07/20 Cynthia Cutler, SCOTT [address] [facility] [place] [address] Specialty Care CoordinatorHematology/Oncology08/07/20 Kathrine Carpenter MD [address] [facility] [place] [address] PhysicianRadiation Oncology08/07/20 Amira Powell [facility] Social Worker09/16/21Team MemberRelationshipSpecialtyStart DateEnd Date Gildardo Lacy [address] [place] [address] PCP - GeneralFamily Practice07/16/20 Esdras Cash MD [address] [place] [address] [place] [address] PhysicianHematology/Oncology08/07/20 Nathaly Biggs, PERFUME MAKER.[employer]CH[employer]ER [address] [facility] [place] [address] Nurse PractitionerHematology/Oncology08/07/20 Cynthia Cutler, SCOTT [address] [place] [address] [place] [address] Specialty Care CoordinatorHematology/Oncology08/07/20 Kathrine Carpenter MD [address] [facility] [place] [address] PhysicianRadiation Oncology08/07/20 Amira Powell [facility] Social Worker09/16/21Team MemberRelationshipSpecialtyStart DateEnd Date Gildardo Lacy [address] [place] [address] PCP - [facility] Medicine07/16/20 Esdras Cash MD [address] [facility] [place] [address] PhysicianHematology/Oncology08/07/20 Nathaly Biggs, PERFUME MAKER.[employer] [address] [facility] [place] [address] Nurse PractitionerHematology/Oncology08/07/20 Cynthia Cutler, SCOTT [address] [facility] [place] [address] Specialty Care CoordinatorHematology/Oncology08/07/20 Kathrine Carpenter MD [address] [facility] [place] [address] PhysicianRadiation Oncology08/07/20 Amira Powell, REINALDO Social Worker09/16/21Team MemberRelationshipSpecialtyStart DateEnd Date Gildardo Lacy [address] [place] [address] PCP - [facility] Medicine07/16/20 Esdras Cash MD [address] [facility] [place] [address] PhysicianHematology/Oncology08/07/20 Nathaly Biggs, PERFUME MAKER.[employer] [address] [facility] [place] [address] Nurse PractitionerHematology/Oncology08/07/20 Cynthia Cutler, SCOTT [address] [facility] [place] [address] Specialty Care CoordinatorHematology/Oncology08/07/20 Kathrine Carpenter MD [address] [facility] [place] [address] PhysicianRadiation Oncology08/07/20 Amira Powell, REINALDO Social Worker09/16/21Team MemberRelationshipSpecialtyStart DateEnd Date Gildardo Lacy [address] [place] [address] PCP - GeneralFamily Medicine07/16/20 Esdras Cash MD [address] [facility] [place] [address] PhysicianHematology/Oncology08/07/20 Nathaly Biggs, PERFUME MAKER.[employer] [address] [facility] [place] [address] Nurse PractitionerHematology/Oncology08/07/20 Cynthia Cutler, RN [address] [facility] [place] [address] Specialty Care CoordinatorHematology/Oncology08/07/20 Kathrine Carpenter MD [address] [facility] [place] [address] PhysicianRadiation Oncology08/07/20 Amira Powell LSW Social Worker09/16/21Team MemberRelationshipSpecialtyStart DateEnd Date Gildardo Lacy [address] [place] [address] PCP - GeneralFamily Medicine07/16/20 Esdras Cash MD [address] [facility] [place] [address] PhysicianHematology/Oncology08/07/20 Nathaly Biggs, PERFUME MAKER.[employer] [address] [facility] [place] [address] Nurse PractitionerHematology/Oncology08/07/20 Cynthia Cutler, RN [address] [facility] [place] [address] Specialty Care CoordinatorHematology/Oncology08/07/20 Kathrine Carpenter MD [address] [facility] [place] [address] PhysicianRadiation Oncology08/07/20 Amira Powell, [employer] C[employer] MANAGER Social Worker09/16/21Team MemberRelationshipSpecialtyStart DateEnd Date Gildardo Lacy [address] [place] [address] PCP - GeneralFamily Medicine07/16/20 Esdras Cash MD [address] [facility] [place] [address] PhysicianHematology/Oncology08/07/20 Nathaly Biggs, PERFUME MAKER.[employer] [address] [facility] [place] [address] Nurse PractitionerHematology/Oncology08/07/20 Cynthia Cutler, SCOTT [address] [facility] [place] [address] Specialty Care CoordinatorHematology/Oncology08/07/20 Kathrine Carpenter MD [address] [facility] [place] [address] PhysicianRadiation Oncology08/07/20 Amira Powell, [facility] Social Worker09/16/21Team MemberRelationshipSpecialtyStart DateEnd Date Gildardo Lacy [address] [place] [address] PCP - GeneralFamily Medicine07/16/20 Esdras Cash MD [address] [place] [address] [place] [address] PhysicianHematology/Oncology08/07/20 Nathaly Biggs, PERFUME MAKER.[employer] [address] [place] [address] [place] [address] Nurse PractitionerHematology/Oncology08/07/20 Cynthia Cutler, SCOTT [address] [facility] [place] [address] Specialty Care CoordinatorHematology/Oncology08/07/20 Kathrine Carpenter MD [address] [place] [address] [place] [address] PhysicianRadiation Oncology08/07/20 Amira Powell, [employer] CENTER MANAGER Social Worker09/16/21Team MemberRelationshipSpecialtyStart DateEnd Date Gildardo Lacy [address] [place] [address] PCP - [facility] Medicine07/16/20 Esdras Cash MD [address] [place] [address] [place] [address] PhysicianHematology/Oncology08/07/20 Nathaly Biggs APRN.[employer] [address] [place] [address] [place] [address] Nurse PractitionerHematology/Oncology08/07/20 Cynthia Cutler, SCOTT [address] [facility] [place] [address] Specialty Care CoordinatorHematology/Oncology08/07/20 Kathrine Carpenter MD [address] [place] [address] [place] [address] PhysicianRadiation Oncology08/07/20 Amira Powell LSW Social Worker09/16/21Team MemberRelationshipSpecialtyStart DateEnd Date Gildardo Lacy [address] [place] [address] PCP - GeneralFamily Medicine07/16/20 Esdras Cash MD [address] [facility] [place] [address] [place] [address] PhysicianHematology/Oncology08/07/20 Nathaly Biggs, PERFUME MAKER.[employer] [address] [place] [address] Nurse PractitionerHematology/Oncology08/07/20 Cynthia Cutler, SCOTT [address] [place] [address] Specialty Care CoordinatorHematology/Oncology08/07/20 Kathrine Carpenter MD [address] [place] [address] PhysicianRadiation Oncology08/07/20 Amira Powell LSW Social Worker09/16/21Team MemberRelationshipSpecialtyStart DateEnd Date ReggieGildardo [address] [place] [address] PCP - GeneralFamily Medicine07/16/20 Esdras Cash MD [address] [place] [address] PhysicianHematology/Oncology08/07/20 Nathaly Biggs, PERFUME MAKER.IMPACT RETAIL SERVICE MERCHANDISER [address] [place] [address] Nurse PractitionerHematology/Oncology08/07/20 Kathrine Carpenter MD [address] [place] [address] PhysicianRadiation Oncology08/07/20 Amira Powell, TEST CENTER MANAGER Social Worker09/16/21Team MemberRelationshipSpecialtyStart DateEnd Date Gildardo Lacy MD PCP - General05/04/99Team MemberRelationshipSpecialtyStart DateEnd Date Gildardo Lacy [address] [place] [address] PCP - GeneralFamily Medicine07/16/20 Esdras Cash MD [address] [place] [address] PhysicianHematology/Oncology08/07/20 Nathaly Biggs, ALEXY.IMPACT RETAIL SERVICE MERCHANDISER [address] [place] [address] Nurse PractitionerHematology/Oncology08/07/20 Kathrine Carpenter MD [address] [place] [address] PhysicianRadiation Oncology08/07/20 Amira Powell, [facility] Social Worker09/16/21Team MemberRelationshipSpecialtyStart DateEnd Date Gildadro Lacy [address] [place] [address] PCP - GeneralHancock County Health Systemly Medicine07/16/20 Esdras Cash MD [address] [place] [address] PhysicianHematology/Oncology08/07/20 Ntahaly Biggs, PERFUME MAKER.IMPACT RETAIL SERVICE MERCHANDISER [address] [place] [address] Nurse PractitionerHematology/Oncology08/07/20 Kathrine Carpenter MD [address] [place] [address] PhysicianRadiation Oncology08/07/20 Amira Powell, TEST CENTER MANAGER Social Worker09/16/21Team MemberRelationshipSpecialtyStart DateEnd Date Gildardo Lacy [address] [place], [place] [address] [address] PCP - [facility] Medicine07/16/20 Esdras Cash MD [address] [place] [address] PhysicianHematology/Oncology08/07/20 Nathaly Biggs, PERFUME MAKER.IMPACT RETAIL SERVICE MERCHANDISER [address] [place] [address] Nurse PractitionerHematology/Oncology08/07/20 Kathrine Carpenter MD [address] [place] [address] PhysicianRadiation Oncology08/07/20 Amira Powell, [facility] Social Worker09/16/21 Team Status: Active Member Role Status Dates Gildardo Lacy MD Primary Care Provider Active Team Status: Inactive Member Role Status Dates Gildardo Lacy MD Primary Care Provider Active S tart: September 08, 2023 End: September 08, 2023Haflory Neely MDAttending ProviderActiveStart: September 08, 2023 End: September 08, 2023Team MemberRelationshipSpecialtyStart DateEnd Date Gildardo Lacy [address] [place] [address] PCP - GeneralFamily Medicine07/16/20 Esdras Cash MD [address] [facility] [place] [address] PhysicianHematology/Oncology08/07/20 Nathaly Biggs, PERFUME MAKER.IMPACT RETAIL SERVICE MERCHANDISER [address] [facility] [place] [address] Nurse PractitionerHematology/Oncology08/07/20 Kathrine Carpenter MD [address] [facility] [place] [address] PhysicianRadiation Oncology08/07/20 Amira Powell LSW Social Worker09/16/21Team MemberRelationshipSpecialtyStart DateEnd Date Gildardo Lacy [address] [place] [address] PCP - Generalmily Medicine07/16/20 Esdras Cash MD [address] [facility] [place] [address] PhysicianHematology/Oncology08/07/20 Nathaly Biggs, PERFUME MAKER.IMPACT RETAIL SERVICE MERCHANDISER [address] [facility] [place] [address] Nurse PractitionerHematology/Oncology08/07/20 Kathrine Carpenter MD [address] [place] [address] PhysicianRadiation Oncology08/07/20 Amira Powell LSW Social Worker09/16/21Team MemberRelationshipSpecialtyStart DateEnd Date Gildardo Lacy [address] [place] [address] PCP - [facility]Hom[facility] Medicine07/16/20 Esdras Cash MD [address] [facility] [place] [address] PhysicianHematology/Oncology08/07/20 Nathaly Biggs, ALEXY.IMPACT RETAIL SERVICE MERCHANDISER [address] [facility] [place] [address] Nurse PractitionerHematology/Oncology08/07/20 Cynthia Cutler, SCOTT [address] [facility] [place] [address] Specialty Care CoordinatorHematology/Oncology08/07/2110 Kathrine Carpenter MD [address] [facility] [place] [address] PhysicianRadiation Oncology08/07/20 Amira Powell [facility] Social Worker09/16/21Team MemberRelationshipSpecialtyStart DateEnd Date Gildardo Lacy [address] [place] [address] PCP - GeneralHancock County Health Systemly Medicine07/16/20 Esdras Cash MD [address] [facility] [place] [address] PhysicianHematology/Oncology08/07/20 Nathaly Biggs, PERFUME MAKER.IMPACT RETAIL SERVICE MERCHANDISER [address] [facility] [place] [address] Nurse PractitionerHematology/Oncology08/07/20 Cynthia Cutler, SCOTT [address] [place] [address] Specialty Care CoordinatorHematology/Oncology08/07/2110 Kathrine Carpenter MD [address] [place] [address] PhysicianRadiation Oncology08/07/20 Amira Powell, TEST CENTER MANAGER Social Worker09/16/21Team MemberRelationshipSpecialtyStart DateEnd Date Gildardo Lacy [address] [place] [address] PCP - GeneralFamily Medicine07/16/20 Esdras Cash MD [address] [place] [address] PhysicianHematology/Oncology08/07/20 Nathaly Biggs APRN.IMPACT RETAIL SERVICE MERCHANDISER [address] [place] [address] Nurse PractitionerHematology/Oncology08/07/20 Cynthia Cutler RN [address] [place] [address] Specialty Care CoordinatorHematology/Oncology08/07/2110 Kathrine Carpenter MD [address] [place] [address] PhysicianRadiation Oncology08/07/20 Amira Powell, TEST CENTER MANAGER Social Worker09/16/21Team MemberRelationshipSpecialtyStart DateEnd Date Gildardo Lacy [address] [place] [address] PCP - GeneralFamily Medicine07/16/20 Esdras Cash MD [address] [place] [address] PhysicianHematology/Oncology08/07/20 Nathaly Biggs, PERFUME MAKER.IMPACT RETAIL SERVICE MERCHANDISER [address] [facility] [place] [address] [place] [address] Nurse PractitionerHematology/Oncology08/07/20 Cynthia Cutler, RN [address] [facility] [place] [address] [place] [address] Specialty Care CoordinatorHematology/Oncology08/07/2110 Kathrine Carpenter MD [address] [facility] [place] [address] [place] [address] PhysicianRadiation Oncology08/07/20Team MemberRelationshipSpecialtyStart DateEnd Date Gildardo Lacy [address] [place] [address] PCP - GeneralFamily Medicine07/16/20 Esdras Cash MD [address] [facility] [place] [address] [place] [address] PhysicianHematology/Oncology08/07/20 Nathaly Biggs, PERFUME MAKER.IMPACT RETAIL SERVICE MERCHANDISER [address] [facility] [place] [address] [place] [address] Nurse PractitionerHematology/Oncology08/07/20 Cynthia Cutler, RN [address] [facility] [place] [address] Specialty Care CoordinatorHematology/Oncology08/07/2110 Kathrine Carpenter MD [address] [place] [address] [place] [address] PhysicianRadiation Oncology08/07/20Team MemberRelationshipSpecialtyStart DateEnd Date Gildardo Lacy MD [address] [place] [address] PCP - GeneralCardiology09/12/22Team MemberRelationshipSpecialtyStart DateEnd Date Gildardo Lacy MD [address] [place] [address] PCP - GeneralCardiology09/12/22Team MemberRelationshipSpecialtyStart DateEnd Date Gildardo Lacy MD [address] [place] [address] PCP - GeneralCardiology09/12/22Team MemberRelationshipSpecialtyStart DateEnd Date Gildardo Lacy MD [address] [place] [address] PCP - GeneralCardiology09/12/22Team MemberRelationshipSpecialtyStart DateEnd Date Gildardo Lacy MD [address] [place] [address] PCP - GeneralCardiology09/12/22Team MemberRelationshipSpecialtyStart DateEnd Date Gildardo Lacy MD [address] [place] [address] PCP - GeneralCardiology5/12/23Team MemberRelationshipSpecialtyStart DateEnd Date Gildardo Lacy MD [address] [place] [address] PCP - GeneralCardiology5//23Team MemberRelationshipSpecialtyStart DateEnd Date Gildardo Lacy MD [address] [place] [address] PCP - GeneralCardiology5//23Team MemberRelationshipSpecialtyStart DateEnd Date Gildardo Lacy MD [address] [place] [address] PCP - GeneralCardiology5//23Team MemberRelationshipSpecialtyStart DateEnd Date Gildardo Lacy MD [address] [place] [address] PCP - GeneralCardiology5//23Team MemberRelationshipSpecialtyStart DateEnd Date Gildardo Lacy MD [address] [place] [address] PCP - GeneralCardiology5//23Team MemberRelationshipSpecialtyStart DateEnd Date Gildardo Lacy MD [address] [place] [address] PCP - GeneralCardiology5/12/23Team MemberRelationshipSpecialtyStart DateEnd Date Gildardo Lacy MD [address] [place] [address] PCP - GeneralFamily Medicine07/16/20 Esdras Cash MD [address] [facility] [place] [address] PhysicianHematology/Oncology08/07/20 Nathaly Biggs, PERFUME MAKER.IMPA[employer] RETAIL SERVICE MERCHANDISER [address] [facility] [place] [address] Nurse PractitionerHematology/Oncology08/07/20 Kathrine Carpenter MD [address] [place] [address] PhysicianRadiation Oncology08/07/20 Amira Powell LSW Social Worker09/16/21Team MemberRelationshipSpecialtyStart DateEnd Date Gildardo Lacy MD [address] [place] [address] PCP - GeneralCardiology09/12/22Team MemberRelationshipSpecialtyStart DateEnd Date Gildardo Lacy MD [address] [place] [address] PCP - GeneralCardiology09/12/22Team MemberRelationshipSpecialtyStart DateEnd Date Gildardo Lacy MD [address] [place] [address] PCP - GeneralCardiology09/12/22Team MemberRelationshipSpecialtyStart DateEnd Date Gildardo Lacy MD [address] [place] [address] PCP - GeneralFamily Medicine11/17/23Team MemberRelationshipSpecialtyStart DateEnd Date Gildardo Lacy MD [address] [place] [address] PCP - GeneralCardiology09/12/22Team MemberRelationshipSpecialtyStart DateEnd Date Gildardo Lacy MD [address] [place] [address] PCP - GeneralCardiology/04/25Team MemberRelationshipSpecialtyStart DateEnd Date Gildardo Lacy MD [address] [place] [address] PCP - GeneralCardiology//Team MemberRelationshipSpecialtyStart DateEnd Date Gildardo Lacy MD [address] [place] [address] PCP - GeneralCardiology09/12/22Team MemberRelationshipSpecialtyStart DateEnd Date Gildardo Lacy MD [address] [place] [address] PCP - GeneralCardiology5//23Team MemberRelationshipSpecialtyStart DateEnd Date Gildardo Lacy MD [address] [place] [address] PCP - GeneralCardiology5//Team MemberRelationshipSpecialtyStart DateEnd Date Gildardo Lacy MD [address] [place] [address] PCP - GeneralCardiology09/12/22Team MemberRelationshipSpecialtyStart DateEnd Date Gildardo Lacy MD [address] [place] [address] PCP - GeneralCardiology09/12/22Team MemberRelationshipSpecialtyStart DateEnd Date Gildardo Lacy MD [address] [place], [place] [address] PCP - GeneralFamily Medicine07/16/20 Esdras Cash MD [address] [facility] [facility] [place] [address] PhysicianHematology/Oncology08/07/20 Nathaly Biggs APRN.IMPA[employer] RETAIL SERVICE MERCHANDISER [address] [facility] [place] [address] Nurse PractitionerHematology/Oncology08/07/20 Kathrine Carpenter MD [address] [facility] [place] [address] PhysicianRadiation Oncology08/07/20 Amira Powell, TEST CENTER MANAGER Social Worker09/16/21 Cassie Hood PA [address] [facility] [place] [address] Family Medicine05/24/24Team MemberRelationshipSpecialtyStart DateEnd Date Gildardo Lacy MD [address] [place] [address] PCP - GeneralCardiology09/12/22Team MemberRelationshipSpecialtyStart DateEnd Date Gildardo Lacy MD [address] [place] [address] PCP - GeneralFamily Medicine07/16/20 Esdras Cash MD [address] [facility] [place] [address] PhysicianHematology/Oncology08/07/20 Nathaly Biggs, ALEXY.IMPA[employer] RETAIL SERVICE MERCHANDISER [address] [facility] [place] [address] Nurse PractitionerHematology/Oncology08/07/20 Kathrine Carpenter MD [address] [facility] [place] [address] PhysicianRadiation Oncology08/07/20 Amira Powell LSW Social Worker09/16/21 Cassie Hood PA [address] [place] [address] Family Medicine05/24/24Team MemberRelationshipSpecialtyStart DateEnd Date Gildardo Lacy MD [address] [place] [address] PCP - GeneralFamily Medicine07/16/20 Esdras Cash MD [address] [facility] [place] [address] PhysicianHematology/Oncology08/07/20 Nathaly Biggs, ALEXY.IMPA[employer] RETAIL SERVICE MERCHANDISER [address] [facility] [place] [address] Nurse PractitionerHematology/Oncology08/07/20 Kathrine Carpenter MD [address] [facility] [place] [address] PhysicianRadiation Oncology08/07/20 Amira Powell LSW Social Worker09/16/21 Cassie Hood PA [address] [facility] [address] Family Medicine05/24/24Team MemberRelationshipSpecialtyStart DateEnd Date Gildardo Lacy MD [address] [place] [address] PCP - GeneralCardiology09/12/22Team MemberRelationshipSpecialtyStart DateEnd Date Gildardo Lacy MD [address] [place] [address] PCP - GeneralFamily Medicine07/16/20 Esdras Cash MD [address] [facility] [place] [address] PhysicianHematology/Oncology08/07/20 Nathaly Biggs, PERFUME MAKER.IMPACT RETAIL SERVICE MERCHANDISER [address] [facility] [place] [address] Nurse PractitionerHematology/Oncology08/07/20 Kathrine Carpenter MD [address] [facility] [place] [address] PhysicianRadiation Oncology08/07/20 Amira Powell [facility] Social Worker09/16/21 Cassie Hood PA [address] [place] [address] Family Medicine05/24/24Team MemberRelationshipSpecialtyStart DateEnd Date Gildardo Lacy MD PCP - GeneralFamily Wmkrlher81/14/18Team MemberRelationshipSpecialtyStart Date End Date Gildardo Lacy MD [address] [place] [address] PCP - GeneralCardiology09/12/22Team MemberRelationshipSpecialtyStart DateEnd Date Gildardo Lacy MD [address] [place] [address] PCP - GeneralCardiology09/12/22Team MemberRelationshipSpecialtyStart DateEnd Date Gildardo Lacy MD [address] [place] [address] PCP - GeneralCardiology09/12/22Team MemberRelationshipSpecialtyStart DateEnd Date Gildardo Lacy MD [address] [place] [address] PCP - GeneralCardiology09/12/22 Gildardo Lacy MD [address] [place] [address] PCP - Devoted09/01/24Team MemberRelationshipSpecialtyStart DateEnd Date Gildardo Lacy MD [address] [place], [place] [address] PCP - GeneralFamily Medicine07/16/20 Esdras Cash MD [address] [facility] [place] [address] PhysicianHematology/Oncology08/07/20 Nathaly Biggs APRN.IMPA[employer] RETAIL SERVICE MERCHANDISER [address] [facility] [place] [address] Nurse PractitionerHematology/Oncology08/07/20 Kathrine Carpenter MD [address] [place] [address] PhysicianRadiation Oncology08/07/20 Amira Powell, [facility] Social Worker09/16/21 Cassie Hood PA [address] [place] [address] [place], [place] [address] Family Medicine05/24/24Team MemberRelationshipSpecialtyStart DateEnd Date Gildardo Lacy MD [address] [place] [address] PCP - GeneralCardiology09/12/22 Gildardo Lacy MD [address] [place] [address] PCP - Devoted09/01/24Team MemberRelationshipSpecialtyStart DateEnd Date Gildardo Lacy MD [address] [place] [address] PCP - GeneralCardiology09/12/22 Gildardo Lacy MD [address] [place] [address] PCP - Devoted09/01/24Team MemberRelationshipSpecialtyStart DateEnd Date Gildardo Lacy MD [address] [place] [address] PCP - GeneralFamily Medicine11/17/23Team MemberRelationshipSpecialtyStart DateEnd Date Gildardo Lacy MD [address] [place] [address] PCP - GeneralCardiology09/12/22 Gildardo Lacy MD [address] [place] [address] PCP - Devoted09/01/24Team MemberRelationshipSpecialtyStart DateEnd Date Gildardo Lacy MD [address] [place] [address] PCP - GeneralCardiology09/12/22 Gildardo Lacy MD [address] [place] [address] PCP - Devoted09/01/24Team MemberRelationshipSpecialtyStart DateEnd Date Gildardo Lacy MD [address] [place] [address] PCP - GeneralCardiology09/12/22 Gildardo Lacy MD [address] [place] [address] PCP - Devoted09/01/24Team MemberRelationshipSpecialtyStart DateEnd Date Gildardo Lacy MD [address] [place] [address] PCP - GeneralCardiology09/12/22 Gildardo Lacy MD [address] [place] [address] PCP - Devoted09/01/24Team MemberRelationshipSpecialtyStart DateEnd Date Gildardo Lacy MD [address] [place] [address] PCP - GeneralCardiology09/12/22 Gildardo Lacy MD [address] [place] [address] PCP - Devoted09/01/24Team MemberRelationshipSpecialtyStart DateEnd Date Gildardo Lacy MD [address] [place] [address] PCP - GeneralCardiology09/12/22 Gildardo Lacy MD [address] [place] [address] PCP - Devoted09/01/24Team MemberRelationshipSpecialtyStart DateEnd Date Gildardo Lacy MD [address] [place] [address] PCP - GeneralCardiology09/12/22 Gildardo Lacy MD [address] [place] [address] PCP - Devoted09/01/24Team MemberRelationshipSpecialtyStart DateEnd Date Gildardo Lacy MD [address] [place] [address] PCP - GeneralCardiology09/12/22 Gildardo Lacy MD [address] [place] [address] PCP - Devoted09/01/24Team MemberRelationshipSpecialtyStart DateEnd Date Gildardo Lacy MD [address] [place] [address] PCP - GeneralCardiology09/12/22 Gildardo Lacy MD [address] [place] [address] PCP - Devoted09/01/24Team MemberRelationshipSpecialtyStart DateEnd Date Gildardo Lacy MD [address] [place] [address] PCP - GeneralCardiology09/12/22 Gildardo Lacy MD [address] [place] [address] PCP - Devoted09/01/24Team MemberRelationshipSpecialtyStart DateEnd Date Gildardo Lacy MD [address] [place] [address] PCP - GeneralCardiology09/12/22 Gildardo Lacy MD [address] [place] [address] PCP - Devoted09/01/24Team MemberRelationshipSpecialtyStart DateEnd Date Gildardo Lacy MD [address] [place] [address] PCP - GeneralFamily Medicine07/16/20 Nathaly Biggs APRN.[employer]ICE MERCHANDISER [address] [facility] [place] [address] Nurse PractitionerHematology/Oncology08/07/20 Kathrine Carpenter MD [address] [facility] [place] [address] PhysicianRadiation Oncology08/07/20 Amira Powell, TEST CENTER MANAGER Social Worker09/16/21 Cassie Hood PA [address] [place] [address] [place] [address] Family Medicine05/24/24Team MemberRelationshipSpecialtyStart DateEnd Date Gildardo Lacy MD PCP - GeneralFamily Fzxwndkn75/14/18Team MemberRelationshipSpecialtyStart Date End Date Gildardo Lacy MD [address] [place] [address] PCP - GeneralCardiology09/12/22 Gildardo Lacy MD [address] [place] [address] PCP - Devoted09/01/24Team MemberRelationshipSpecialtyStart DateEnd Date Gildardo Lacy MD [address] [place] [address] PCP - GeneralCardiology09/12/22 Gildardo Lacy MD [address] [place] [address] PCP - Devoted09/01/24 Goals (unrecognized section and content) Goals may [...] BE BASED ON THE PRIMARY CLINICAL RECORDS. [facility] [employer] [facility]. provides no warranty or guarantee of the accuracy or completeness of information in this document.
--- NOTE | 2025-02-27 14:45 | PM.CN ---
Consult Note: HPI Data of Consult Patient: new to practice Consult date: 02/27/25 Requesting Physician: Laine Najera MD Primary Care Provider: Gildardo Paredes MD Consult Narrative Reason for consult: low back pain, bilateral leg pain Narrative: 64yom who presents for evaluation. notes worsening low back pain with difficulty ambulating, several falls, numbness into left leg. history of throat cancer and recent significant weight loss, has upcoming PET scan, oncology is aware. uses percocet. denies adverse med side effects. cc:: CC: Laine Najera MD Review of Systems ROS Status of ROS 10 or more systems reviewed and unremarkable except as noted in history and below [facility] Medical History Acute hypoxic respiratory failure ?J96.01 - Acute respiratory failure with hypoxia (ICD-10) Cerebrovascular disease ?I67.9 - Cerebrovascular disease, unspecified (ICD-10) Benign essential hypertension ?I10 - Essential (primary) hypertension (ICD-10) Asthma exacerbation in COPD ?J44.1 - Chronic obstructive pulmonary disease with (acute) exacerbation (ICD-10) Hypoxemia ?R09.02 - Hypoxemia (ICD-10) Acute ischemic right BONY stroke ?I63.521 - Cerebral infarction due to unspecified occlusion or stenosis of right anterior cerebral artery (ICD-10) Peripheral arterial disease ?I73.9 - Peripheral vascular disease, unspecified (ICD-10) Occlusion of left internal carotid artery ?I65.22 - Occlusion and stenosis of left carotid artery (ICD-10) COPD (chronic obstructive pulmonary disease) ?J44.9 - Chronic obstructive pulmonary disease, unspecified (ICD-10) Chemotherapy-induced neuropathy ?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 - Drug-induced polyneuropathy (ICD-10) ?T45.1X5A - Adverse effect of antineoplastic and immunosuppressive drugs, initial encounter (ICD-10) Macrocytic anemia ?D53.9 - Nutritional anemia, unspecified (ICD-10) Hyponatremia ?E87.1 - Hypo-osmolality and hyponatremia (ICD-10) Hypomagnesemia ?E83.42 - Hypomagnesemia (ICD-10) Bilateral carotid artery stenosis ?I65.23 - Occlusion and stenosis of bilateral carotid arteries (ICD-10) Pneumonia ?J18.9 - Pneumonia, unspecified organism (ICD-10) Contusion of multiple sites ?T07.XXXA - Unspecified multiple injuries, initial encounter (ICD-10) History of hypertension ?Z86.79 - Personal history of other diseases of the circulatory system (ICD-10) History of throat cancer ?Z85.819 - Personal history of malignant neoplasm of unspecified site of lip, oral cavity, and pharynx (ICD-10) Hx of supraventricular tachycardia ?Z86.79 - Personal history of other diseases of the circulatory system (ICD-10) History of emphysema ?J43.9 - Emphysema, unspecified (ICD-10) History of arthritis ?Z87.39 - Personal history of other diseases of the musculoskeletal system and connective tissue (ICD-10) Hx of TIA (transient ischemic attack) and stroke ?Z86.73 - Personal history of transient ischemic attack (TIA), and cerebral infarction without residual deficits (ICD-10) History of COPD ?Z87.09 - Personal history of other diseases of the respiratory system (ICD-10) Surgical History Hx of cholecystectomy ?Z90.49 - Acquired absence of other specified parts of digestive tract (ICD-10) 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 - Acquired absence of spleen (ICD-10) Hx of hernia repair ?Z98.890 - Other specified postprocedural states (ICD-10) ?Z87.19 - Personal history of other diseases of the digestive system (ICD-10) Social History Within the past year, how often did you have a drink containing alcohol: 4 or more times a week Within the past year, how many standard drinks containing alcohol did you have on a typical day: 10 or more Within the past year, how often did you have six or more drinks on one occasion: daily or almost daily Total score: 12 Score interpretation: A score of 4 or more indicates drinking is likely to affect patient's safety. Smoking status: Heavy tobacco smoker Highest level of school completed/degree received: some college, no degree Do you want help with school or training: No Little interest or pleasure in doing things: not at all Feeling down, depressed, or hopeless: not at all Meds Home Medications and Allergies Home Medications ?Medication ?Instructions ?Recorded ?Confirmed ?Type omeprazole 40 mg capsule,delayed 40 mg PO DAILY 10/14/22 02/27/25 History release zolpidem 10 mg tablet 10 mg PO DAILY PRN insomnia 10/14/22 02/27/25 History aspirin 81 mg tablet,delayed 81 mg PO DAILY 07/23/24 02/27/25 History release (Adult Low Dose Aspirin) atorvastatin 20 mg tablet 20 mg PO DAILY 07/25/24 02/27/25 History topiramate 100 mg tablet (Topamax) 100 mg PO DAILY 07/25/24 02/27/25 History clopidogrel 75 mg tablet 75 mg PO QD #30 tabs 07/26/24 02/27/25 Rx fluticasone fur. 100 mcg-umeclid 1 inh inhalation DAILY 02/06/25 02/27/25 History 62.5 mcg-vilant 25 mcg inhalat.powder (Trelegy Ellipta) oxycodone-acetaminophen 5 mg-325 1 tab PO QID PRN pain 02/06/25 02/27/25 History mg tablet buprenorphine 10 mcg/hour weekly 1 patch transdermal Q7D 02/27/25 02/27/25 History transdermal patch (Butrans) buprenorphine 10 mcg/hour weekly 1 patch transdermal Q7D #4 ea 02/27/25 Rx transdermal patch (Butrans) pregabalin 50 mg capsule (Lyrica) 50 mg PO TID 02/27/25 02/27/25 History pregabalin 50 mg capsule (Lyrica) 50 mg PO TID #90 caps 02/27/25 Rx Allergies Allergy/AdvReac Type Severity Reaction Status Date / Time No Known Drug Allergies Allergy Verified 02/15/25 09:42 Exam Narrative Exam Narrative: Psych-alert and oriented x 3. Attentive and appropriate, constitutionally normal, displays normal mood and affect per situation. There are no obvious deficits in memory, reasoning, or intellect.? Skin-no obvious rashes, bruising, erythema noted to the patient's area of pain.? Extremities- extremities are warm with minimal edema and palpable pulses. Lumbar-tenderness to palpation noted in the lumbar spine and paraspinal musculature. Pain is elicited with flexion, extension, and lateral rotation of the lumbar spine. Range of motion is diminished with these motions. Facet loading maneuvers are positive. Strength-noted to be unremarkable with the exception of decreased strength rated at 4 out of 5 in bilateral quadriceps femoris, anterior tibialis. Sensory-no notable sensory deficits in the bilateral lower extremities to touch or pinprick in all dermatomal distributions with the exception to decreased sensation to the bilateral L4, 5 dermatomal distribution Coordination remains intact.? Gait remains non-antalgic. Assessment and Plan Assessment and Plan (1) Lumbar stenosis with neurogenic claudication: Plan 64yom who presents for evaluation. failed conservative measures, as noted. imaging reviewed, which is significant for chronic l1 compression fracture, as well as multilevel spondylosis. given worsening symptoms into bilateral lower extremities, will order bilateral lower extremity EMG. also will order butrans patch 10mcg/hr to help with pain. will order lyrica 50mg tid. follow up after emg.
== END 2025-02-27 13:40 | disposition home or self-care (01) ==
LOC: PM 13:40
PROVIDERS: PCP Family Medicine; Visit Provider Anesthesiology
DX: M48.062 Spinal stenosis, lumbar region with neurogenic claudication (principal)
CPT/HCPCS: G0463

== ENCOUNTER 2025-03-16 07:57 | Outpatient (OUT) | payer OTHER, SELFPAY ==
--- OUTSIDE RECORDS SUMMARY | 2025-03-06 04:28 | XMS_ITS | Continuity of Care Document ---
Author Organization [facility] Address [address] [place] [address] Phone Care Team Providers Care Financial Coordinator Name Role Phone Gildardo Paredes MD Primary Care Provider [phone] Jacqueline Jj MD Attending Provider Abby Sousa DO Attending Provider Care Teams Patient Care Team Team Status: Active Member Role/Relationship Status Dates Gildardo Paredes MD Primary Care Provider Active Visit Care Team Team Status: Active Member Role/Relationship Status Dates Gildardo Paredes MD Primary Care Provider Active S tart: February 15, 2025 Jacqueline Jj MDAttmarie ProviderActiveStart: February 15, 2025 Patient Care Team Team Status: Inactive Member Role/Relationship Status Dates Gildardo Paredes MD Primary Care Provider Active S tart: March 06, 2025 End: March 06, 2025Abby Sousa DOAttmarie ProviderActiveStart: March 06, 2025 End: March 06, 2025 Chief Complaint and Reason for Visit Chief Complaint Admit Date BLE EMG lumbar radiculopathy March 8:27am Allergies, Adverse Reactions, Alerts Allergen Type Severity Reaction Last Updated Verified Status No Known Allergies Allergy Unknown January 19, 2018 4:57pmYesActive Social History Smoking Status Status Start Date End Date Date of Observa tion Smokes tobacco daily (finding) August 07, 2020 1:23pm Observation Status Observation Response Date of Response Legal Sex Male (finding) Sex Assigned At BirthMaleMay 1960 Family History Relationship Condition Age at Onset Recorded Date/T valentina brother Diabetes mellitus Unknown motherMalignant neoplasm of breastUnknown Problems Active Problems Problem Diagnosis/Recorded Date Onset Date Status C omments DDD (degenerative disc disease), thoracic January 16, 2025 3:28pm Unknown Active Inactive/Resolved Problems Problem Diagnosis/Recorded Date Onset Date Status C omments Left rib fracture January 19, 2018 6:06pm Unknown Resolved Problem List clean-up per request of Phys. EHR [facility] Oropharyngeal cancer August 07, 2020 12:21pm Unknown Re solved Problem List clean-up per request of Phys. EHR Cmte Traumatic injury of body of pancreas January 19, 2018 6:05pm Unknown Resolved Problem List clean-up per request of Phys. EHR Cmte Acute alcohol intoxication January 19, 2018 6:06pm Unknown Resolved Problem List clean-up per request of Phys. EHR Cmte Hypotension January 19, 2018 6:05pm Unknown Resolved Problem List clean-up per request of Phys. EHR Cmte Pneumoperitoneum January 19, 2018 6:05pm Unknown Resolved Problem List clean-up per request of Phys. EHR Cmte Medications Medication Status Dose Units Route Directions Qty Days Refills S tart Date Stop Date End Date Reason(s) Instructions Adherence Albuterol Sulfate 90 mcg/actuation HFA aerosol inhaler Active 2 PUFF INHALATION Every 4 hours a s needed for Shortness Of Breath 8.5 3September 2024 2:34pmUnknownOxycodone-Acetaminophen 5-325 mg tablet Sbyktqgcmwcp7OERPFUu Directed as needed for [id number] 2024February 14, 2025 1:29pmDegeneration of intervertebral disc of thoracic region Other intervertebral disc degeneration, thoracic regionOxycodone-Acetaminophen 5-325 mg zucmkuVbcntb0SLWXUBs Directed as needed for [id number] 2024Degeneration of intervertebral disc of thoracic region Other intervertebral disc degeneration, thoracic regionUnknownAlbuterol Sulfate 2.5 mg /3 mL (0.083 %) Solution For NebulizationActive2.5MGINHALATIONAs Directed as needed for Shortness Of BreathApril 2020 11:00pmUnknownAmiodarone 200 mg hzbrzkBzglyi514BQARQccraQnopd 2020 11:00pmUnknownMetoprolol Succinate 50 mg tablet extended release 24 meUnhghc17UBHXFkiifNpfsd 2020 11:00pmUnknown Meloxicam 15 mg WbtxlbTtnexa78VHYUYxvmgAyxkr 2020 11:00pmUnknownPotassium Chloride 10 mEq tablet extended vzbgzozXictai13DXYSEWekjwFtskq 2020 11:00pm UnknownAmlodipine 5 mg zpgbffHilejx4PSEQAcuoeEdnea 2020 11:00pmUnknown Omeprazole 40 mg capsule,delayed release(DR/EC)Bskncq64ZNKRNkuolVmvcu 2020 11:00pmUnknownAcetaminophen 500 mg RknlnuWdvrtr079RNRGTq Directed as needed for PainApril 2020 11:00pmUnknownOxycodone-Acetaminophen 5-325 mg tablet Rxzchooloynn0GEQPJLp Directed as needed for PainApril 2020 11:00pmSeptember 2024 3:29pmAspirin 81 mg HitgfvUzvlqq68WFNTNgsbmRtihw 2020 11:00pm UnknownZolpidem 10 mg vkruygApsxog42XGTIOrlzlCqcgc 2020 11:00pmUnknown Albuterol Sulfate 90 mcg/actuation Hfa Aerosol QsxuxjqJrqpigfliiyh2XPIH INHALATIONAs Directed as needed for Shortness Of BreathApril 2020 11:00pm January 04, 2025 2:35pmFluticasone Propionate 50 mcg/actuation spray,khupychpggClthpl25NUGYQPGHTYWACEp DirectedApril 2020 11:00pmUnknown Ciclopirox 0.77 % ShgIbjxaj7EHXONWKVFZKWPBjjga dailyApril 2020 11:00pm UnknownBupropion Hcl 300 mg tablet extended release 24 pdYnplmv109JACKZxkicJjylp 2020 11:00pmUnknownTopiramate 50 mg maccjyOuwzwq86BHYPOrtbk dailyApril 2020 11:00pmUnknown Relevant Diagnostic Tests and/or Laboratory Data Laboratory Results Test Collection Date/Time Result Date/Time Result Interpretation Reference Range Result Comment Performing Site Anion Gap February 15, 2025 9:27am 17.9Lactic Acid LevelOct2024 9:27amOctober 2024 9:27am1.1 mmol/L0.4-2.0Basophils # (Auto)February 15, 2025 9:27amOctober 2024 9:27am0.1 10 3/uL0.0-0.1Troponin I High SensitivityOct2024 11:03am February 15, 2025 11:03am8.9 pg/mL4.0-76.1CUT-OFF POINTS HAVE BEEN ESTABLISHED BASED ON THE FOURTHUNIVERSAL DEFINITION OF MYOCARDIAL INFARCTION. THE UPPERREFERENCE LIMIT (URL) OF TROPONIN, DEFINED THE 99THPERCENTILE OF cTnI DISTRIBUTION IN A REFERENCE POPULATION,HAS BEEN CONFIRMED THE DECISION THRESHOLD FOR MIDIAGNOSIS.99TH PERCENTILE = 76.2 PG/MLNOTE: HIGH-SENSITIVITY TROPONIN ASSAY IS NOT INTENDED TO BEUSED IN ISOLATION BUT SHOULD BE INTERPRETED IN CONJUNCTIONWITH OTHER DIAGNOSTIC AND CLINICAL INFORMATION.Albumin/Globulin RatioOct2024 9:27am1.0Basophils (%) (Auto)February 15, 2025 9:27am February 15, 2025 9:27am0.7 %0.2-2.0AlbuminOctober 2024 9:27am3.8 g/dL 3.4-5.0Eosinophils # (Auto)February 15, 2025 9:27amOctober 2024 9:27am0.1 10 3/uL0.0-0.7Alkaline PhosphataseOct2024 9:27am77 U/L46-116 Eosinophils (%) (Auto)February 15, 2025 9:27amOctober 2024 9:27am1.2 % 0.9-7.0Alanine Aminotransferase (ALT/SGPT)February 15, 2025 9:27am24 U/L16-63 HematocritOct2024 9:27amOctober 2024 9:27am39.0 %Below low echxns47.0-54.0Aspartate Amino Transf (AST/SGOT)February 15, 2025 9:27am21 U/L 15-37HemoglobinOctober 2024 9:27amOctober 2024 9:27am13.3 g/dLBelow low .0-18.0BUN/Creatinine RatioOct5 9:27am25.0Immature Granulocyte # (Auto)February 15, 2025 9:27amOctober 2024 9:27am0.03 10 3/uL0.00-0.03Blood Urea NitrogenOctober 2024 9:27am24.0 mg/dLAbove high normal7.0-18.0Immature Granulocyte % (Auto)February 15, 2025 9:27amOctober 2024 9:27am0.4 %0.0-0.5Calcium LevelOctober 2024 9:27am9.1 mg/dL 8.5-10.1Lymphocytes # (Auto)February 15, 2025 9:27amOctober 2024 9:27am 1.1 10 3/uLBelow low normal1.2-3.8Chloride LevelOctober 2024 9:74xv876 mmol/Y78-706Qmegvegpfdx (%) (Auto)February 15, 2025 9:27amOctober 2024 9:27am14.1 %Below low ejsglm06.5-60.0Carbon Dioxide LevelOctober 2024 9:27am24.2 mmol/L21.0-32.0Mean Corpuscular HemoglobinOctober 2024 9:27am February 15, 2025 9:27am33.6 pg25.9-34.0CreatinineOctober 2024 9:27am0.96 mg/dL0.70-1.30Mean Corpuscular Hemoglobin ConcentOctober 2024 9:27am February 15, 2025 9:27am34.1 g/dL29.9-35.2Estimated GFR () February 15, 2025 9:27am>60>=60 mL/min/1.73m 2Mean Corpuscular VolumeOctober 2024 9:27amOctober 2024 9:27am98.5 fLAbove high njasvf32.0-94.0 Estimated GFR (Non- AmericanOctober 2024 9:27am>60>=60 mL/min/1.73m 2Monocytes # (Auto)February 15, 2025 9:27amOctober 2024 9:27am0.6 10 3/uL 0.3-0.8GlobulinOctober 2024 9:27am3.7 g/dLMonocytes (%) (Auto)February 15, 2025 9:27amOctober 2024 9:27am7.7 %1.7-12.0Glucose LevelOctober 2024 9:27am86 mg/lH58-464Fcue Platelet VolumeOct2024 9:27am February 15, 2025 9:27am9.5 fL9.5-13.5Potassium LevelOctober 2024 9:27am 3.1 mmol/LBelow low normal3.5-5.1Neutrophils # (Auto)February 15, 2025 9:27am February 15, 2025 9:27am5.7 10 3/uL1.4-6.5Sodium LevelOctober 2024 9:27am 143 mmol/Y040-716Gxkhndzatnb (%) (Auto)February 15, 2025 9:27amOctober 2024 9:27am75.9 %Above high imkvoc19.0-75.0Total BilirubinOct2024 9:27am1.1 mg/dLAbove high normal0.2-1.0Platelet CountOctober 2024 9:27am February 15, 2025 9:39ik691 10 3/lH840-548Dyvnk ProteinOctober 2024 9:27am7.5 g/dL6.4-8.2Red Blood CountOctober 2024 9:27amOctober 2024 9:27am3.96 10 6/uLBelow low normal4.70-6.10Red Cell Distribution WidthOct2024 9:27amOctober 2024 9:27am14.0 %11.0-15.0Corrected White Blood CountOctober 2024 9:27amOctober 2024 9:27am7.5 10 3/uL4.0-11.0 Advance Directives Advance Directive Response Recorded Date/ Time Advance Directives No August 07 11:13am Insurance Providers Guarantor Sepideh Willett Rick Address [address] [place] [address]Qzldddx Info.Home Phone: Coverage Status Update:2025 Payer Group Member ID Coverage Type Subscriber Relationship to Subscriber Effective Date Expiration Date [employer] Medicaid Disabled Id: [id number] Simpson Id: [id number] [address] [place] [address] Home Phone: [employer] MCR PFFS Id: [id number] Simpson Id: [id number] [address] [place] [address] Home Phone: [employer] MCR PFFS [id number] Cabrera Id: [id number] [address] [place] [address] Home Phone: SelfHCAP/HFA/FAP Active 100% thru [address] [facility] [address] Work Phone: [phone] [id number] Simpson Id: [id number] [address] [place] [address] Home Phone: SelfJuly 2020 Encounters Encounter Location(s) Arrival/Admit Date Discharge/Departure Date Discharge/Departure Disposition Provider(s) Non-patient / Non-visit -[facility] ctober 2024 10:27am Jacqueline Jj , MDDeparted Physician/Provider Office [facility] 2024 8:27amNovember 2024 9:23amDischarged to home care or self care (routine discharge)Abby Sousa DO
--- OUTSIDE RECORDS SUMMARY | 2025-03-06 10:30 | XMS_ITS | Encounter Summary ---
Author Organization [facility] Address [address] [place] [id number] Care Team Providers Care Ged Teacher Name Role Phone Gildardo Paredes MD Primary Care Provider [phone] Nathaly Abernathy APRN.SUPERVISOR [employer] Unavailable [phone] Kathrine Velasquez MD Unavailable [phone] Amira Powell Unavailable Unavailable Nato Hood Unavailable Unavailable Nancy Logan RD Unavailable [phone] Source Comments In the event this information is protected by the Federal Confidentiality of Alcohol and Drug AbusePatient Records regulations: The Federal rules restrict any use of the information to criminally investigate or prosecute any alcohol or drug abuse patient.[facility] Reason for Visit * ReasonCommentsNutrition Assessment Encounter Details DateTypeDepartmentCare Team (Latest Contact Info)Hqnqsjggkph71/03/2025 10:30 AM ESTEducation Nutrition Therapy [address] [place] [address] Nnacy Logan, RD [address] [place] [address] Nutrition Assessment Social History Tobacco UseTypesPacks/DayYears UsedDateSmoking Tobacco: SxzyzkJxnveyjcwy895 Started: 06/12/2024Passive Smoke Exposure: PastSmokeless Tobacco: Never Comments:Quit 06/12/24 Alcohol UseStandard Drinks/WeekCommentsYes0 (1 standard drink = 0.6 oz pure alcohol)not weeklyPHQ-2AnswerDate RecordedPHQ-2 [id number] Vital SignAnswerDate RecordedWithin the past 12 months, you worried that your food would run out before you got the money to buymore.Never true03/06/2025Within the past 12 months, the food you bought just didn't last and you didn't have money to get more.Never true03/06/2025rea Deprivation IndexAnswerDate Recorded National Score (1-100), lower number is lower nuec727009/16/2022State Score (1- 10), lower number is lower xjwd399ata from: https://www.neighborhoodatlas.medicine.[facility].edu/. Last address used for ln[address]qzi[address]/16/[birth year]22Sex and Gender InformationValueDate RecordedSex Assigned at BirthNot on fileLegal WrfFqwn1107/16/2020 4:08 PM EDT Gender IdentityNot on fileSexual OrientationNot on filedocumented as of this encounter Last Filed Vital Signs Vital SignReadingTime TakenCommentsBlood Pressure--Pulse--Temperature-- Respiratory Rate--Oxygen Saturation--Inhaled Oxygen Concentration--Xjmdoj55.3 kg (110 lb 14.3 oz)03/06/2025 1:23 PM ESTHeight--Body Mass Index15.9106/10/2024 2:47 PM ESTdocumented in this encounter Functional Status * Are you deaf or do you have serious difficulty hearing?AnswerDate of UivwqhfcarUoxqltAq67/25/2022 12:57 PM Loree Nunez RN * Are you blind or do you have serious difficulty seeing, even when wearing glasses?AnswerDate of HcznsbnbmfAbdjjfDr16/25/2022 12:57 PM Loree Nunez RN * Do you have serious difficulty walking or climbing stairs?AnswerDate of FxdntczrbkInjdknHo48/25/2022 12:57 PM Loree Nunez RN * Do you have difficulty dressing or bathing?AnswerDate of AssessmentAuthorNo 06/28/2021 12:57 PM Loree Nunez RN * Because of a physical, mental, or emotional condition, do you have difficulty doing errands alone such as visiting a doctor's office or shopping?AnswerDate of PaghilthtbVtfheaYu88/25/2022 12:57 PM Loree Nunez RN documented as of this encounter Mental Status * Because of a physical, mental, or emotional condition, do you have serious difficulty concentrating, remembering, or making decisions?AnswerEntry Date KccljdHh22/25/2022 12:57 PM Loree Nunez RN documented in this encounter Patient Instructions * Patient Instructions* Nancy Logan RD - 03/06/2025 2:02 PM EST Nutrition Intervention: Aim for 5-6 small, frequent meals eat around the clock every 3 hours versus waiting on hunger cues Aim for a total of 85 grams protein per day and 0066-0050 kcals per day Recommend 3-4 protein shakes per day. Trial Boost [facility],samples provided strawberry and vanilla. Can use Commercial beverages mixed with ice cream or in a smoothie, add peanut butter or avocado Focus on soft, moist high protein foods such as Poultry, fish/seafood, lean meat, eggs, cheese/yogurt, beans, nuts, nut butter, tofu/tempeh. Try calorie boosters to meals: adding cheese, butter, oils, gravies, sauces, sour cream, cream cheese to foods to increase nutrition content. Hydration: - goal for at least 64 oz of de-caffeinated fluids daily documented in this encounter Progress Notes * Nancy Logan RD - 03/06/2025 10:30 AM EST NUTRITION THERAPY ONCOLOGY NOTE Initial Assessment RECOMMENDED MALNUTRITION DIAGNOSIS: SEVERE PROTEIN-CALORIE MALNUTRITION ETIOLOGY: In the context of Chronic Illness or Injury based on: Unintentional Weight Loss: >10% in 6 months Insufficient Energy Intake: Less than 75% energy intake compared to estimated needs for greater than or equal to 1 month Subcutaneous Fat Loss: Severe Loss Muscle Loss Severe Loss Nutrition Diagnosis: Inadequate protein-energy intake, related to hypermetabolic illness, as evidenced by COPD, Diet recall indicates poor oral intakes <75% of EEE, severe weight loss Nutrition Intervention: Aim for 5-6 small, frequent meals eat around the clock every 3 hours versus waiting on hunger cues Aim for a total of 85 grams protein per day and 3357-9378 kcals per day Recommend 3-4 protein shakes per day. Trial Boost [facility],samples provided strawberry and vanilla. Can use Commercial beverages mixed with ice cream or in a smoothie, add peanut butter or avocado Focus on soft, moist high protein foods such as Poultry, fish/seafood, lean meat, eggs, cheese/yogurt, beans, nuts, nut butter, tofu/tempeh. Try calorie boosters to meals: adding cheese, butter, oils, gravies, sauces, sour cream, cream cheese to foods to increase nutrition content. Hydration: - goal for at least 64 oz of de-caffeinated fluids daily Educational materials provided: High Calorie High Protein Diet Guidelines and Snack Ideas for Weight Gain Soups, smoothies, supplements booklet, ONC DPG Soft, moist high protein foods Samples provided, coupons. Referral(s): none Nutrition Monitoring & Evaluation: weight status, bowel regulation, hydration status, tolerance to nutrition support (ONS/EN), biochemical markers, management of nutrition impact symptoms. 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 PMH: Oropharynx and bilateral neck RT 22, COPD, anxiety, chronic migraine,L1 verebra fx, COPD, COVID19, HTN, TIA, depression, SVT, cholecystectomy. Nutrition Assessment: Patient presents for nutrition counseling for unintentional weight loss. Patient's weight triggers for significant weight loss and meeting approximately less or equal than 75% of estimated nutritional needs. Diet recall shows inadequate protein, calorie, and fiber intake. Hydration is adequate. Nutrition impact symptoms are interfering with appetite with recent thrush, back pain, decreased appetite, chronic dysphagia being main barriers to oral intakes . Nutrition related labs no recent labs. Overall, patient remains at higher nutritional risk due to severe protein-calorie malnutrition, weight loss, requiring further interventions and ongoing monitoring. SUBJECTIVE/OBJECTIVE Decreased oral intakes r/t lower back pain Recent Thrush dx w Diflucan Some difficulty swallowing: Bread, meats, pills No spicy foods, no fish, bread is okay, croissants are difficulty PET Scan today Patient's Symptoms are: Oral: swallowing problems and thrush Behavioral: altered appetite Weight Concerns: weight loss Diet Recall: B: no, skips, will have Ensure or Premier protein. D: Chicken wings, nigerian fries, or sobeida beef salad: beef, cucumber, tomato cashews and rice Sn: Often does not eat snacks. Likes armenian peanuts and cashews Fluids: 40 of sports drink, some water Supplements: Ensure plus or Premier protein, using since this summer 1x/day, increased over the past 1-2weeks to 3x/day. Food Insecurity Screening: Food Insecurity: No Food Insecurity (03/06/2025) Hunger Vital Sign Worried About Running Out of Food in the Last Year: Never true Ran Out of Food in the Last Year: Never true Readiness to Learn: Cognitive ability: Alert and oriented Motivation to learn: Interested Family support: Unable to assess - Family not present, Sister from [place] present during assessment, helps when needed. Instruction provided to: Patient and Family member Patient learns best by: Multiple Methods Factors affecting learning: None Physical limitations affecting learning: None Anthropometrics: Height: Last 1 Encounter Ht Readings: Date: Ht: 06/10/2024 177.8 cm (5' 10 ) Current weight: Last 1 Encounter Wt Readings: Date: Wt: 02/21/2025 49.5 kg (109 lb 2 oz) Estimated body mass index is 15.91 kg/m?? as calculated from the following: Height as of 06/10/24: 177.8 cm (5' 10 ). Weight as of this encounter: 50.3 kg (110 lb 14.3 oz). Resting Metabolic Rate: 1295 Weight Change: Patient with significant weight loss. 16.9% wt change in 3months: Severe 20% wt change in <1year. Estimated Nutritional needs: Dosing Weight: 50.3 kg Estimated kilocalorie needs: 7816-5593 kilocalories determined by 35-40 kcal/kg Estimated protein needs: 65-85 grams determined by 1.3-1.7 g/kg Dosing weight Estimated fluid needs: 2050-8350 milliliters based on 1 mL per kcal Nutrition Focused Physical Exam: Subcutaneous Fat Loss Orbital Mild Triceps Mild Mid-axillary at the iliac crest Severe Muscle Loss Locations: Temporalis Severe Pectoralis Mild Deltoids Severe Interosseous Mild Latissimus dorsi, trapezius Mild Quadriceps Severe Gastrocnemius Mild Potential micronutrient deficiency revealed in: No deficiency identified Edema: No Ascites: No Assessment of Functional Status: Difficulty with ambulation or normal activities, not feeling up tomost things, in bed or chair less than half the day for a duration of 3 months Potential Signs of Inflammation: chronic condition Need for Follow up: Will follow up in 1month:04/06: Phone encounter Referred by: Dr Ron VO MNT Billing Type: Initial Assess 3 units Total Time (mins): 40 SIGNATURE: Nancy Logan RD PATIENT NAME: Sepideh Cabrera DATE: 03/06/2025 documented in this encounter Plan of Treatment DateTypeDepartmentCare Team (Latest Contact Info)Ndhhrjljspx22/04/2025 10:30 AM ESTEducation Nutrition Therapy [address] [facility] [place] [address] [facility] [place] [address] /06/20/2025 11:00 AM ESTOffice Visit [facility] [place] [address] LAB06/27/2025 1:45 PM ESTOffice Visit Radiation Oncology [address] [facility] [place] [address] Kathrine Velasquez MD [address] [place] [address] 6 month follow updocumented as of this encounter Visit Diagnoses Diagnosis 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, face, and neck Severe protein-calorie malnutrition (HCC) Other severe protein-calorie malnutrition documented in this encounter Care Teams Team MemberRelationshipSpecialtyStart DateEnd Date Gildardo Paredes MD [address] [place] [address] [facility]07/16/20 Nathaly Abernathy APRN.SUPERVISOR [employer] [address] [place] [address] Nurse PractitionerHematology/Oncology08/07/20 Kathrine Velasquez MD [address] [place] [address] [place] [address] PhysicianRadiation Oncology08/07/20 Amira Powell LSW Social Worker09/16/21 Nato Hood PA Family Medicine05/24/[address] [place] [address] [place] [address] Dhygzcyws39/3/25documented as of this encounter
--- OUTSIDE RECORDS SUMMARY | 2025-03-14 11:15 | XMS_ITS | Encounter Summary ---
Author Organization [facility] Address [facility] [place] [address] Care Team Providers Care Eyelet Punch Operator Name Role Phone Gildardo Paredes MD Primary Care Provider [phone] Nathaly Abernathy APRN.DRIVER LICENSE REVIEWING OFFICER Unavailable [phone] Kathrine Velasquez MD Unavailable [phone] Amira Powell Unavailable Unavailable Nato Hood Unavailable Unavailable Nancy Logan RD Unavailable [phone] Source Comments In the event this information is protected by the Federal Confidentiality of Alcohol and Drug AbusePatient Records regulations: The Federal rules restrict any use of the information to criminally investigate or prosecute any alcohol or drug abuse patient.[facility] Reason for Referral * MRI/CT (Routine) - ClosedSpecialtyDiagnoses / ProceduresReferred By Contact Referred To ContactCT IMAGING Diagnoses Head and neck cancer (HCC) Weight loss Procedures CT NECK SOFT TISSUE WO IVCON CT SOFT TISSUE NECK W/O CONTRAST MATERIAL Kathrine Velasquez MD [address] [place] [address] [place] [address] Phone: tel: fax: CT IMAGING [facility] Referral IDStatusReasonAurora DateExpiration DateVisits RequestedVisits [id number] Auto-Generated Referral / Reason for Visit * ReasonCommentsRadiology CT * Diagnostic Procedure Only (Routine) - AuthorizedSpecialtyDiagnoses / ProceduresReferred By ContactReferred To ContactMOLECULAR & FUNCTIONAL IMAGING Diagnoses Head and neck cancer (HCC) Procedures NM PET/CT SKULL-THIGH SUBSEQUENT PET IMAGING CT ATTENUATION SKULL BASE MID-THIGH Kathrine Velasquez MD [address] [place] [address] [place] [address] Phone: tel: fax: Molecular Imaging [address] [place] [address] Phone: tel: Referral IDStatusReasonAurora DateExpiration DateVisits RequestedVisits [id number] Auto-Generated Referral / Encounter Details DateTypeDepartmentCare Team (Latest Contact Info)Sgatzigzhaz10/11/2025 11:15 AM EST - 03/14/2025 11:59 PM ESTHospital Encounter Radiology Pet CT [address] [place] [address] [place] [address] Head and neck cancer (HCC) [C76.0] Discharge Disposition: Home Social History Tobacco UseTypesPacks/DayYears UsedDateSmoking Tobacco: TdwzovXufcscsriu111 Started: 06/12/2024Passive Smoke Exposure: PastSmokeless Tobacco: Never Comments:Quit 06/12/24 Alcohol UseStandard Drinks/WeekCommentsYes0 (1 standard drink = 0.6 oz pure alcohol)not weeklyPHQ-2AnswerDate RecordedPHQ-2 anyyz033Hunger Vital SignAnswerDate RecordedWithin the past 12 months, you worried that your food would run out before you got the money to buymore.Never true03/06/2025Within the past 12 months, the food you bought just didn't last and you didn't have money to get more.Never true5Area Deprivation IndexAnswerDate Recorded National Score (1-100), lower number is lower mhni700209/16/2022State Score (1- 10), lower number is lower [id number] from: https://www.neighborhoodatlas.medicine.[facility]/. Last address used for tsxykuqclup[address]/[birth year]22Sex and Gender InformationValueDate RecordedSex Assigned at BirthNot on fileLegal UpiPiit1407/16/2020 4:08 PM EDT Gender IdentityNot on fileSexual OrientationNot on filedocumented as of this encounter Functional Status * Are you deaf or do you have serious difficulty hearing?AnswerDate of XupaqrjdezEyrkddEn77/25/2022 12:57 PM Loree Nunez RN * Are you blind or do you have serious difficulty seeing, even when wearing glasses?AnswerDate of IajmlegyngKmxbjrBt44/25/2022 12:57 PM Loree Nunez RN * Do you have serious difficulty walking or climbing stairs?AnswerDate of CpzjewdkqcUgddjxLi73/25/2022 12:57 PM Loree Nunez RN * Do you have difficulty dressing or bathing?AnswerDate of AssessmentAuthorNo 06/28/2021 12:57 PM Loree Nunez RN * Because of a physical, mental, or emotional condition, do you have difficulty doing errands alone such as visiting a doctor's office or shopping?AnswerDate of KekgoembjsXcnkraSj93/25/2022 12:57 PM Loree Nunez RN documented as of this encounter Mental Status * Because of a physical, mental, or emotional condition, do you have serious difficulty concentrating, remembering, or making decisions?AnswerEntry Date HserqkIj01/25/2022 12:57 PM Loree Nunez RN documented in this encounter Medications at Time of Discharge MedicationSigDispense QuantityRefillsLast FilledStart DateEnd clopidogrel (PLAVIX) 75 mg tablet Take 75 mg by mouth./04/2026 megestrol (MEGACE) 400 mg/10 mL (40 mg/mL) suspension take 20 milliliters by mouth once daily 480 mL atorvastatin (LIPITOR) 20 mg tablet Take by mouth.06/10/2022 omeprazole (PRILOSEC) 40 mg capsule Take 40 mg by mouth twice daily.06/30/2022 metoprolol succinate ER (TOPROL XL) 50 mg 24 hr tablet Take 50 mg by mouth once daily.05/26/2022 BREO ELLIPTA 100-25 mcg/dose inhaler INHALE 1 PUFF BY MOUTH ONCE DAILY05/16/2021 aspirin, enteric coated (ASPIRIN, ENTERIC COATED) 81 mg EC tablet Take 81 mg by mouth once daily. oxyCODONE-acetaminophen (PERCOCET 10) 10-325 mg tablet Take 1 tablet by mouth four times daily as needed.10/02/2020 albuterol (PROVENTIL) 2.5 mg /3 mL (0.083 %) nebulizer solution 2.5 mg.02/15/2018 albuterol HFA (PROVENTIL HFA, VENTOLIN HFA) 90 mcg/actuation inhaler q 4 HR. ipratropium-albuterol (DUONEB) 0.5 mg-3 mg(2.5 mg base)/3 mL nebu Inhale 3 mL as instructed as needed for wheezing/shortness of breath. 02/15/2018 topiramate (TOPAMAX) 100 mg tablet Take 100 mg by mouth twice daily.07/23/2020 zolpidem (AMBIEN) 10 mg Take 10 mg by mouth at bedtime as needed.01/31/2019documented as of this encounter Progress Notes * Cynthia Meadows, RT(R) - 03/14/2025 11:15 AM EST Radiology Service Progress Note PATIENT NAME: Sepideh Cabrera DATE OF SERVICE: March 14, 2025 TIME: 2:02 PM PATIENT IDENTITY VERIFICATION COMPLETED USING TWO [...] PATIENT PRESENTS WITH AN IMPLANTABLE OR ATTACHED FILM DEVELOPING MACHINE OPERATOR: No RADIOLOGY DEPARTMENT: CT; Exam(s) Completed: Chest Abdomen Pelvis. Anesthesia: No PERIPHERAL IV DATA: Not applicable SIGNED BY: Cynthia Meadows, RT(R) March 14, 2025 2:02 PM documented in this encounter Plan of Treatment DateTypeDepartmentCare Team (Latest Contact Info)Qvajqwqaksc13/04/2025 10:30 AM ESTEducation Nutrition Therapy [address] [place] [address] Nancy Logan, SCOTT [address] [place] [address] f/u006/20/2025 11:00 AM ESTOffice Visit [facility] [address] [place] [address] [place] [address] LAB06/27/2025 1:45 PM ESTOffice Visit Radiation Oncology [address] [place] [address] [place] [address] Kathrine Velasquez MD [address] [place] [address] [place] [address] 6 month follow updocumented as of this encounter Procedures Procedure NamePriorityDate/TimeAssociated DiagnosisCommentsCT CHEST WO IVCON Sdaeskq2003/14/2025 1:56 PM EST Head and neck cancer (HCC) Weight loss CT ABD/PEL WO NCRNQOyzqzmu17/11/2025 1:56 PM EST Head and neck cancer (HCC) Weight loss CT NECK SOFT TISSUE WO JVRLOEwqjfzg97/11/2025 1:56 PM EST Head and neck cancer (HCC) Weight loss GLUCOSE, BLOOD (POC)Awqxcfn2103/14/2025 11:33 AM EST documented in this encounter Results * CT NECK SOFT TISSUE WO IVCON (03/14/2025 1:56 PM EST)Anatomical Region LateralityModalityNeckNuclear Medicine, Nuclear [facility] (Source) Anatomical Location / LateralityCollection Method / VolumeCollection Time Received Time03/14/2025 1:56 PM EST Impressions 03/14/2025 2:29 PM EST IMPRESSION: Stable treatment related findings with no specific evidence of residual or recurrent malignancy in the neck. 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 Transcribe Date/Time: Mar 14 2025 ??2:20P Dictated by: URMILA BHATTI MD This examination was interpreted and the report reviewed and electronically signed by: URMILA BHATTI MD on Mar 14 2025 ??2:27PM ??EST Thank you for allowing us to participate in the care of your patient. Should there be any questions regarding this interpretation, please call [phone]. If you are unable to reach us at the number above, please feel free to contact [facility] at [phone]. Narrative 03/14/2025 2:29 PM EST * * *Final Report* * * DATE OF EXAM: Mar 14 2025 ??1:56PM ?? [facility] ?? 0509 ??- ??CT NECK SOFT TISSUE WO IVCON ??/ PROCEDURE REASON: multiple diagnoses ? * * * * Physician Interpretation * * * * RESULT: CT NECK SOFT TISSUE WO IVCON History: Head and neck cancer (HCC) Weight loss Technique: ??A series of contiguous helical scans were performed from the skull base to the aortic arch following injection of intravenous contrast. CT Radiation dose: Integrated Dose-length product (DLP) for this visit = ?? 958 mGy*cm. CT Dose Reduction Employed: Automated exposure control (AEC) COMPARISON: CT of the neck 09/10/2022 RESULT: Postoperative Change: Stable postsurgical findings throughout the right neck and treatment-related changes in the right hemitongue and adjacent tongue base/oropharynx. Aerodigestive tract: No mass lesion is identified. Likely right vocal cord paralysis. Major salivary glands: Marked atrophy of the bilateral submandibular glands, favored to be treatment related. Thyroid gland: Atrophic. Lymph Nodes: No cervical lymphadenopathy by size criteria. Carotid/Parapharyngeal/Retropharyngeal Spaces: ??No focal lesions are identified. Calcified atherosclerotic plaque is present in the left carotid artery likely resulting in flow-limiting stenosis of the left common carotid artery. Chronic occlusion of the left ICA is characterized on prior contrast-enhanced examinations. Orbits, Face and Skull Base: Visualized paranasal sinuses are clear. 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 Imaged intracranial contents: No intracranial mass effect or hydrocephalus. Cervical spine and remaining osseous structures: No evidence of high-grade canal stenosis. ??No aggressive/destructive osseous lesions are identified. Lung apices: No evidence of mass lesion or infection. Advanced pulmonary emphysema. Procedure Note Provider, [facility] [place] - 03/14/2025 * * *Final Report* * * DATE OF EXAM: Mar 14 2025 1:56PM [facility] 0509 - CT NECK SOFT TISSUE WO IVCON / PROCEDURE REASON: multiple diagnoses * * * * Physician Interpretation * * * * RESULT: CT NECK SOFT TISSUE WO IVCON History: Head and neck cancer (HCC) Weight loss Technique: A series of contiguous helical scans were performed from the skull base to the aortic arch following injection of intravenouscontrast. CT Radiation dose: Integrated Dose-length product (DLP) for this visit = 958 mGy*cm. CT Dose Reduction Employed: Automated exposure control (AEC) COMPARISON: CT of the neck 09/10/2022 RESULT: Postoperative Change: Stable postsurgical findings throughout the right neck and treatment-related changes in the right hemitongue and adjacent tongue base/oropharynx. Aerodigestive tract: No mass lesion is identified. Likely right vocal cord paralysis. Major salivary glands: Marked atrophy of the bilateral submandibular glands, favored to be treatment related. Thyroid gland: Atrophic. Lymph Nodes: No cervical lymphadenopathy by size criteria. Carotid/Parapharyngeal/Retropharyngeal Spaces: No focal lesions are identified. Calcified atherosclerotic plaque is present in the left carotid artery likely resulting in flow-limiting stenosis of the left common carotid artery. Chronic occlusion of the left ICA is characterized on prior contrast-enhanced examinations. Orbits, Face and Skull Base: Visualized paranasal sinuses are clear. 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 Imaged intracranial contents: No intracranial mass effect or hydrocephalus. Cervical spine and remaining osseous structures: No evidence of high-grade canal stenosis. No aggressive/destructive osseous lesions are identified. Lung apices: No evidence of mass lesion or infection. Advanced pulmonary emphysema. IMPRESSION IMPRESSION: Stable treatment related findings with no specific evidence of residual or recurrent malignancy in the neck. 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 Transcribe Date/Time: Mar 14 2025 2:20P Dictated by: URMILA BHATTI MD This examination was interpreted and the report reviewed and electronically signed by: URMILA BHATTI MD on Mar 14 2025 2:27PM EST Thank you for allowing us to participate in the care of your patient. Should there be any questions regarding this interpretation, please call [phone]. If you are unable to reach us at the number above, please feel free to contact [facility] at [phone]. Authorizing ProviderResult TypeResult StatusG Сергей Velasquez MDCT-PAMAFinal Result * CT ABD/PEL WO IVCON (03/14/2025 1:56 PM EST)Anatomical RegionLaterality ModalityAbdomenNuclear Medicine, Nuclear MedicineSpecimen (Source)Anatomical Location / LateralityCollection Method / VolumeCollection TimeReceived Time 03/14/2025 1:56 PM EST Impressions 03/15/2025 8:16 AM EST IMPRESSION: 1. ??No definite evidence of metastatic disease in the abdomen or pelvis within the limitations of a noncontrast examination. 2. Moderate to large hernia along the anterior abdominal wall, to the right of the umbilicus. ??This contains fat and small bowel and is similar in appearance to the prior PET/CT from 12/15/2023. 3. ??Small volume of ascites. ??Diffuse anasarca. Transcribe Date/Time: Mar 15 2025 ??8:05A Dictated by: MARCIE LOMELI MD This examination was interpreted and the report reviewed and electronically signed by: MARCIE LOMELI MD on Mar 15 2025 ??8:14AM ??EST Thank you for allowing us to participate in the care of your patient. Should there be any questions regarding this interpretation, please call [phone]. If you are unable to reach us at the number above, please feel free to contact [facility]Radiology at [phone]. Narrative 03/15/2025 8:16 AM EST * * *Final Report* * * DATE OF EXAM: Mar 14 2025 ??1:56PM ?? [facility] ?? 0531 ??- ??CT ABD/PEL WO IVCON ??/ PROCEDURE REASON: multiple diagnoses ? * * * * Physician Interpretation * * * * RESULT: EXAMINATION: ??CT ABDOMEN AND PELVIS WITHOUT IV CONTRAST CLINICAL HISTORY: ??Head and neck cancer with weight loss. TECHNIQUE: Non-IV contrast imaging of the abdomen and pelvis was performed using standard technique, scanning from just above the dome of the diaphragm to the symphysis pubis. ??Unenhanced imaging is limited for the evaluation of some intra-abdominal and pelvic pathology. MQ: ??CTAPWO_3 Contrast: IV: None Oral: ??500 ml of Omni 240 10-25ml diluted with water CT Radiation dose: Integrated Dose-length product (DLP) for this visit = ?? 958 mGy*cm. CT Dose Reduction Employed: Automated exposure control (AEC) COMPARISON: PET CT from 12/15/2023 RESULT: Evaluation of the abdomen and pelvis is limited due to the lack of intravenous contrast. ??The following findings are within this limitation. Abdomen / Pelvis: Liver: Unremarkable. Biliary: Cholecystectomy. Spleen: Spleen is either absent or markedly atrophic. ??There is a small splenule in the left upper quadrant. Pancreas: Unremarkable. Adrenals: No mass. Kidneys: Numerous renal vascular calcifications. ??Hypodense renal lesions bilaterally, not well evaluated without contrast but likely representing renal cysts. GI Tract: No bowel dilation. ??Surgical leia are present near the cecum. Lymph Nodes: No lymphadenopathy. Mesentery/peritoneum: Small volume of ascites. Retroperitoneum: No mass. Vasculature: Moderate to marked calcification of the abdominal aorta and iliac arteries. Pelvis: No mass. Bones/Soft Tissues: Degenerative changes. Moderate to large hernia along the anterior abdominal wall, to the right of the umbilicus. ??This contains fat and small bowel and is similar in appearance to the prior PET/CT from 12/15/2023. Diffuse anasarca. Lower thorax: A chest CT performed will be reported separately. Localizer images: No additional findings. Procedure Note Provider, [facility] [place] - 03/15/2025 * * *Final Report* * * DATE OF EXAM: Mar 14 2025 1:56PM [facility] 0531 - CT ABD/PEL WO IVCON / PROCEDURE REASON: multiple diagnoses * * * * Physician Interpretation * * * * RESULT: EXAMINATION: CT ABDOMEN AND PELVIS WITHOUT IV CONTRAST CLINICAL HISTORY: Head and neck cancer with weight loss. TECHNIQUE: Non-IV contrast imaging of the abdomen and pelvis was performed using standard technique, scanning from just above the dome of the diaphragm to the symphysis pubis. Unenhanced imaging is limited for the evaluation of some intra-abdominal and pelvic pathology. MQ: CTAPWO_3 Contrast: IV: None Oral: 500 ml of Omni 240 10-25ml diluted with water CT Radiation dose: Integrated Dose-length product (DLP) for this visit = 958 mGy*cm. CT Dose Reduction Employed: Automated exposure control (AEC) COMPARISON: PET CT from 12/15/2023 RESULT: Evaluation of the abdomen and pelvis is limited due to the lack of intravenous contrast. The following findings are within thislimitation. Abdomen / Pelvis: Liver: Unremarkable. Biliary: Cholecystectomy. Spleen: Spleen is either absent or markedly atrophic. There is a small splenule in the left upper quadrant. Pancreas: Unremarkable. Adrenals: No mass. Kidneys: Numerous renal vascular calcifications. Hypodense renal lesions bilaterally, not well evaluated without contrast but likely representing renal cysts. GI Tract: No bowel dilation. Surgical leia are present near thececum. Lymph Nodes: No lymphadenopathy. Mesentery/peritoneum: Small volume of ascites. Retroperitoneum: No mass. Vasculature: Moderate to marked calcification of the abdominal aorta and iliac arteries. Pelvis: No mass. Bones/Soft Tissues: Degenerative changes. Moderate to large hernia along the anterior abdominal wall, to the right of the umbilicus. This contains fat and small bowel and is similar in appearance to the prior PET/CT from 12/15/2023. Diffuse anasarca. Lower thorax: A chest CT performed will be reported separately. Localizer images: No additional findings. IMPRESSION IMPRESSION: 1. No definite evidence of metastatic disease in the abdomen or pelvis within the limitations of a noncontrast examination. 2. Moderate to large hernia along the anterior abdominal wall, to the right of the umbilicus. This contains fat and small bowel and is similar in appearance to the prior PET/CT from 12/15/2023. 3. Small volume of ascites. Diffuse anasarca. Transcribe Date/Time: Mar 15 2025 8:05A Dictated by: MARCIE LOMELI MD This examination was interpreted and the report reviewed and electronically signed by: MARCIE LOMELI MD on Mar 15 2025 8:14AM EST Thank you for allowing us to participate in the care of your patient. Should there be any questions regarding this interpretation, please call [phone]. If you are unable to reach us at the number above, please feel free to contact [facility] at [phone]. Authorizing ProviderResult TypeResult StatusG Сергей Velasquez MDCT-PAMAFinal Result * (ABNORMAL) CT CHEST WO IVCON (03/14/2025 1:56 PM EST)ComponentValueRef Range Test MethodAnalysis TimePerformed AtPathologist SignatureRadiology Result ACTIONABLE(Actionable)DIVISION OF RADIOLOGYComment: This report contains an incidental or actionable finding. ??This finding may be a new finding separate from the reason your provider ordered the imaging test or it may be an already known finding that needs additional or continued follow-up. Because of this incidental or actionable finding, you may need another test (imaging or a different type of test). ??Please contact your provider for the next steps. Anatomical RegionLateralityModalityChestNuclear Medicine, Nuclear Medicine Specimen (Source)Anatomical Location / LateralityCollection Method / Volume Collection TimeReceived Time03/14/2025 1:56 PM EST Impressions 03/15/2025 8:28 AM EST IMPRESSION: 1. ??There are new pulmonary nodules when compared to the prior PET/CT from 12/15/2023. ??This includes a 9 mm nodule in the medial right lower lobe. ??Would advise further evaluation with PET/CT at this time to assess for possible associated FDG avidity within the nodule. ??There is an additional smaller 5 mm nodule in the anterior right upper lobe and a 4 mm nodule in the right lower lobe which are also new. ??The smaller nodules are likely too small for resolution with PET/CT. ??Therefore, the smaller nodules should undergo a 3 month follow-up chest CT without contrast in addition to the above recommended PET/CT for the larger nodule. 2. ??No significant thoracic adenopathy detected. 3. ??Moderate to marked coronary artery calcification. ACTIONABLE RESULT: FOLLOW-UP Acuity: Actionable Findings: Thoracic-Lung nodules Routing code: ??RI_1 Recommendation: Unlisted Recommendation (see report) Time Frame: Additional evaluation as described in the impression COMMUNICATION: Results will be communicated with the ordering provider via [employer] staff message or phone message by Imaging Support Services within 2 business days of report finalization. --END OF FINDING-- Algorithms for management of incidental imaging findings can be found on the [facility] Intranet Sharepoint site at: http://[email or web address]/documentation/mychartlinks/Managing%20Incidental%20Findi ngs%20at%20Imaging/Forms/AllItems.aspx Transcribe Date/Time: Mar 15 2025 ??8:16A Dictated by: MARCIE LOMELI MD This examination was interpreted and the report reviewed and electronically signed by: MARCIE LOMELI MD on Mar 15 2025 ??8:25AM ??EST Thank you for allowing us to participate in the care of your patient. Should there be any questions regarding this interpretation, please call [phone]. If you are unable to reach us at the number above, please feel free to contact [facility] at [phone]. Narrative 03/15/2025 8:28 AM EST * * *Final Report* * * DATE OF EXAM: Mar 14 2025 ??1:56PM ?? [facility] ?? 0541 ??- ??CT CHEST WO IVCON ??/ PROCEDURE REASON: multiple diagnoses ? * * * * Physician Interpretation * * * * RESULT: EXAMINATION: ??CHEST CT WITHOUT CONTRAST CLINICAL HISTORY: History of head and neck cancer with weight loss. Technique: ??Spiral CT acquisition of the chest from the thoracic inlet to the upper abdomen without contrast. MQ: ??CTCWO_6 CT Radiation dose: Integrated Dose-length product (DLP) for this visit = ?? 958 mGy*cm CT Dose Reduction Employed: Automated exposure control (AEC) Comparison: PET CT from 12/15/2023 RESULT: Limitations: ??None. Lines, tubes, and devices: ??None. Lung parenchyma and airways: Moderate to marked centrilobular emphysema. ??Minimal layering mucus within the trachea and bronchi. Mild segmental and subsegmental bronchiectasis in the lower lobes. Surgical leia along the lateral right midlung, consistent with prior wedge resection. -9 mm nodule in the medial right lower lobe on slice 121 of series 4, new when compared to the prior PET/CT from 12/15/2023. -5 mm nodule in the anterior right upper lobe on slice 69 of series 4, new when compared to the prior PET/CT from 12/15/2023. -4 mm subpleural nodular density in the posterior right lower lobe on slice 99 of series 4, new when compared to the prior PET/CT from 12/15/2023. -Stable 2 mm nodule in the anterior right middle lobe on slice 140 of series 4. Pleural space: ??No pleural effusion. ??No pleural thickening. Lower neck, lymph nodes, and mediastinum: ??No suspicious axillary or mediastinal lymphadenopathy. Heart, pericardium, and thoracic vessels: ??No pericardial effusion. ?? Moderate to marked coronary artery calcification. Bones and soft tissues: ??No destructive bone lesion. Chest wall is unremarkable. Upper abdomen: ??A CT of the abdomen and pelvis was performed and will be reported separately. Localizer images: No additional findings. Procedure Note Provider, [facility] - 03/15/2025 * * *Final Report* * * DATE OF EXAM: Mar 14 2025 1:56PM [facility] 0541 - CT CHEST WO IVCON / PROCEDURE REASON: multiple diagnoses * * * * Physician Interpretation * * * * RESULT: EXAMINATION: CHEST CT WITHOUT CONTRAST CLINICAL HISTORY: History of head and neck cancer with weight loss. Technique: Spiral CT acquisition of the chest from the thoracic inlet to the upper abdomen without contrast. MQ: CTCWO_6 CT Radiation dose: Integrated Dose-length product (DLP) for this visit = 958 mGy*cm CT Dose Reduction Employed: Automated exposure control (AEC) Comparison: PET CT from 12/15/2023 RESULT: Limitations: None. Lines, tubes, and devices: None. Lung parenchyma and airways: Moderate to marked centrilobular emphysema. Minimal layering mucus within the trachea and bronchi. Mild segmental and subsegmental bronchiectasis in the lower lobes. Surgical leia along the lateral right midlung, consistent with prior wedge resection. -9 mm nodule in the medial right lower lobe on slice 121 of series 4, new when compared to the prior PET/CT from 12/15/2023. -5 mm nodule in the anterior right upper lobe on slice 69 of series 4, new when compared to the prior PET/CT from 12/15/2023. -4 mm subpleural nodular density in the posterior right lower lobe on slice 99 of series 4, new when compared to the prior PET/CT from 12/15/2023. -Stable 2 mm nodule in the anterior right middle lobe on slice 140 of series 4. Pleural space: No pleural effusion. No pleural thickening. Lower neck, lymph nodes, and mediastinum: No suspicious axillary or mediastinal lymphadenopathy. Heart, pericardium, and thoracic vessels: No pericardial effusion. Moderate to marked coronary artery calcification. Bones and soft tissues: No destructive bone lesion. Chest wall is unremarkable. Upper abdomen: A CT of the abdomen and pelvis was performed and will be reported separately. Localizer images: No additional findings. IMPRESSION IMPRESSION: 1. There are new pulmonary nodules when compared to the prior PET/CT from 12/15/2023. This includes a 9 mm nodule in the medial right lower lobe. Would advise further evaluation with PET/CT at this time to assess for possible associated FDG avidity within the nodule. There is an additional smaller 5 mm nodule in the anterior right upper lobe and a 4 mm nodule in the right lower lobe which are also new. The smaller nodules are likely too small for resolution with PET/CT. Therefore, the smaller nodules should undergo a 3 month follow-up chest CT without contrast in addition to the above recommended PET/CT for the larger nodule. 2. No significant thoracic adenopathy detected. 3. Moderate to marked coronary artery calcification. ACTIONABLE RESULT: FOLLOW-UP Acuity: Actionable Findings: Thoracic-Lung nodules Routing code: RI_1 Recommendation: Unlisted Recommendation (see report) Time Frame: Additional evaluation as described in the impression COMMUNICATION: Results will be communicated with the ordering provider via [employer] staff message or phone message by Imaging Support Services within 2 business days of report finalization. --END OF FINDING-- Algorithms for management of incidental imaging findings can be found on the [facility] Intranet Sharepoint site at: http://spo.cc[facility].org/documentation/mychartlinks/Managing%20Incidental%20Findi ngs%20at%20Imaging/Forms/AllItems.aspx Transcribe Date/Time: Mar 15 2025 8:16A Dictated by: MARCIE LOMELI MD This examination was interpreted and the report reviewed and electronically signed by: MARCIE LOMELI MD on Mar 15 2025 8:25AM EST Thank you for allowing us to participate in the care of your patient. Should there be any questions regarding this interpretation, please call [phone]. If you are unable to reach us at the number above, please feel free to contact [facility] eRadiology at [phone]. Authorizing ProviderResult TypeResult StatusG Сергей Velasquez MDCT-PAMAFinal Result * (ABNORMAL) GLUCOSE, BLOOD (POC) (03/14/2025 11:33 AM EST)ComponentValueRef RangeTest MethodAnalysis TimePerformed AtPathologist SignatureGlucose, Point of Ukvv478(A)74 - 99 mg/dLSMyMichigan Medical CenterComment: Location:[facility], [address] [place] [address] , [place], [place], [facility] The Accu-Chek Inform II glucose meter has not been approved for testing on patients receiving intensive medical intervention or therapy and results from this point of care glucose test should not be used for patient management decisions in these cases. ??Inaccurate results may also occur from other interfering factors, such as N-acetylcysteine (blood concentrations of greater than 5mg/dL), galactose, extremes of hematocrit (<10 or >65), or high doses of ascorbic acid (vitamin C) greater than 3mg/dL. ??Consider alternate testing mechanisms (e.g. core lab, blood gas instrument) in the above situations. Specimen (Source)Anatomical Location / LateralityCollection Method / Volume Collection TimeReceived Time03/14/2025 11:33 AM EST Narrative Authorizing ProviderResult TypeResult StatusCcf ProviderPOC TESTINGFinal Result Performing OrganizationAddressCity/State/ZIP CodePhone Number [facility] POINT OF [facility] [address], [place] documented in this encounter Visit Diagnoses Diagnosis Head and neck cancer (HCC) Malignant neoplasm of head, face, and neck Weight loss Loss of weight documented in this encounter Care Teams Team MemberRelationshipSpecialtyStart DateEnd Date Gildardo Paredes MD [address] [place] [place] [address] PCP - GeneralFamily Medicine07/16/20 Nathaly Abernathy APRN.DRIVER LICENSE REVIEWING OFFICER [facility] [place] [address] Nurse PractitionerHematology/Oncology08/07/20 Kathrine Velasquez MD [facility] [place] [address] PhysicianRadiation Oncology08/07/20 Amira Powell LSW Social Worker09/16/21 Nato Hood PA Family Medicine05/24/[address] [facility] [place] [address] Zlfppkfyi81/3/25documented as of this encounter
--- OUTSIDE RECORDS SUMMARY | 2025-03-16 08:00 | XMS_ITS | Encounter Summary ---
Author Organization [facility] Address [address] [facility] [place] [address] Care Team Providers Care Home Connect Lpn Name Role Phone Mike Lacy MD Primary Care Provider [phone] Mike Lacy MD Unavailable Encounter Details DateTypeDepartmentCare Team (Latest Contact Info)Tjsyjaxliks38/28/2024Clinisync Result Encounter [facility] Department Unsolicited Mike Lacy MD [address] [place] [id number] Social History Tobacco UseTypesPacks/DayYears UsedDateSmoking Tobacco: Every DayCigarettes Smokeless Tobacco: Never Comments:11-20 cigarettes a day Alcohol UseStandard Drinks/WeekCommentsNever0 (1 standard drink = 0.6 oz pure alcohol)Caffine intake: nonePHQ-2AnswerDate RecordedPatient Health Questionnaire-2 Vutoy24506/13/2023Sex and Gender InformationValueDate RecordedSex Assigned at BirthNot on fileLegal NooUypu7907/16/2022 9:49 PM EDTGender Identity Not on fileSexual OrientationNot on filedocumented as of this encounter Functional Status * Over the past 2 weeks, how often have you been bothered by any of the following problems?QuestionAnswerDate of AssessmentAuthorLittle interest or pleasure in doing thingsSeveral days04/12/2024 1:00 PM Kristie Rios MA Feeling down, depressed, or hopelessSeveral days04/12/2024 1:00 PM Kristie Rios MAPatient Health Questionnaire-2 Kvnxo49006/13/2023 1:00 PM Kristie Rios MA * QuestionAnswerDate of AssessmentAuthorTrouble falling or staying asleep, or sleeping too muchSeveral days04/12/2024 1:00 PM Kristie Rios MAFeeling tired or having little energySeveral days04/12/2024 1:00 PM Kristie Rios MAPoor appetite or overeatingSeveral days04/12/2024 1:00 PM Kristie Rios MAFeeling bad about yourself - or that you are a failure or have let yourself or your family downNot at all04/12/2024 1:00 PM Kristie Rios MATrouble concentrating on things, such as reading the newspaper or watching television Not at all04/12/2024 1:00 PM Kristie Rios MAMoving or speaking so slowly that other people could have noticed? Or the opposite - being so fidgety or restless that you have been moving around a lot more than usual.Not at all 04/12/2024 1:00 PM Kristie Rios MAThoughts that you would be better off or hurting yourself in some wayNot at all04/12/2024 1:00 PM Kristie Rios MAPatient Health Questionnaire-9 Fatka27606/13/2023 1:00 PM Kristie Rios MA documented as of this encounter Plan of Treatment Not on file documented as of this encounter Procedures Procedure NamePriorityDate/TimeAssociated DiagnosisCommentsSEGMENTAL BLOOD UKALJCEE30/28/2024 2:44 PM EST documented in this encounter Results * SEGMENTAL BLOOD PRESSURE (07/01/2023 2:44 PM EST)Anatomical RegionLaterality ModalityRadiographic ImagingSpecimen (Source)Anatomical Location / Laterality Collection Method / VolumeCollection TimeReceived Time07/01/2023 2:44 PM EST Narrative 07/02/2023 11:23 PM EST [facility] ?[address] ? [place] [address] ? Cardiology Report ? Signed ? Patient: FLOYD,SEPIDEH L ?MR#: [id number] ?? : 1960 ?Acct:[id number] ?? Age/Sex: 62 / M ?ADM Date: 02/28/24 ?? Loc: CARD ? Attending Dr: Mike Lacy M.D. ? Ordering Physician: Mike Lacy M.D. ?? Date of Service: 07/01/23 ?? Procedure(s): CA segmental UE or LE BEBA ?? Accession Number(s): [id number] ? cc: Mike Lacy M.D. ?[facility] ? Test Date: ?2023-07-01 ?? Pat Name: ? SEPIDEH FLOYD ? Department: ? Room: ? - ?? Gender: ? Male ? Trust Accounts Supervisor: ? : ?1960 ? Requested By: MIKE LACY ?? Order Number: [id number] ?Reading MD: ?? ESAU ??BALL ? Interpretive Statements ?? Monophasic doppler waveforms. ?? PVR waveforms with delayed upstroke, blunted amplitude and loss of dicrotic ?? notch. ?? Right: ?? - no significant pressure gradient between cuffs ?? - abnormal BRITTANY ?? Left: ?? - significant pressure gradient between the brachial and thigh cuff ?? - abnormal BRITTANY ? Impression: ?? - abnormal arterial evaluation of the right lower extremity with mild ?? hemodynamic impairment of the right lower extremity at rest. (right BRITTANY 0.94) ?? - significant left inflow (femoral artery or above) arterial disease with ?? severe hemodynamic impairment of the left lower extremity at rest. (left BRITTANY ?? 0.47) ? Electronically Signed On 07-02-2023 23:23:24 EST by ESAU ??JOSIE ? Dictated By: ?Esau Galindo D.O. ? Signed By: ?07/02/232322 ?07/02/233 ? DD/ 1444 ? TD/TT: ? Morning Nanny: Procedure Note Radiology, Radiologist, - 07/02/2023 [place] [address] Cardiology Report Signed Patient: SEPIDEH FLOYD LMR#: [id number] : 1960cct:[id number] Age/Sex: 62 / MADM Date: 07/01/23 Loc: CARD Attending Dr: Mike Lacy M.D. Ordering Physician: Mike Lacy M.D. Date of Service: 07/01/23 Procedure(s): CA segmental UE or LE BEBA Accession Number(s): [id number] cc: Mike Lacy M.D. [facility] Test Date: 2023-07-01 Pat Name: SEPIDEH FLOYD Department: Room: - Gender: Male Trust Accounts Supervisor: : 1960 Requested By: MIKE LACY Order Number: [id number] Reading MD: ESAU GALIDNO Interpretive Statements Monophasic doppler waveforms. PVR waveforms [...] Signed On 07-02-2023 23:23:24 EST by ESAU GALIDNO Dictated By: Esau Galindo D.O. Signed By:07/02/23232207/02/232322 DD/ 43 TD/TT: Morning Nanny: Authorizing ProviderResult TypeResult StatusMarc Reggie VOIMG XR PROCEDURES Final Result documented in this encounter Visit Diagnoses Not on filedocumented in this encounter Care Teams Team MemberRelationshipSpecialtyStart DateEnd Date Mike Lacy MD [address] [place] [address] PCP - GeneralCardiology09/12/22 Mike Lacy MD [address] [place] [address] PCP - Devoted09/01/24documented as of this encounter
--- OUTSIDE RECORDS SUMMARY | 2025-03-16 08:00 | XMS_ITS | Clinical Summary ---
Author Organization [facility] Address [address] [place] [address] Phone Care Team Providers Care Canvas Marker Name Role Phone Gildardo Paredes MD Primary [...] mg) by mouth once daily. 90 tablet 3:02 PM EST/ctive Active Problems ProblemNoted DateDiagnosed XilaAnegkx13/16/2024MI less than 19,adult11/17/2023 Irbufszfmwtrjs61/03/2024Abnormal EKG106/29/2022urrent gxehds1704/28/2023epression 04/28/20232226Srogjvy76/26/2023VD (peripheral vascular disease)04/28/2023TIA (transient ischemic attack)04/28/2023 Social History Tobacco UseTypesPacks/DayYears UsedDateSmoking Tobacco: Every DayCigarettes Smokeless Tobacco: Never Tobacco Cessation:Ready to Q uit: No; Counseling Given: Yes Alcohol UseStandard Drinks/WeekCommentsNever0 (1 standard drink = 0.6 oz pure alcohol)PHQ-2AnswerDate RecordedPatient Health Questionnaire-2 Mmqwx116 Sex and Gender InformationValueDate RecordedSex Assigned at BirthNot on file Legal KuzEjou59/25/2022 9:44 AM ESTGender IdentityNot on fileSexual Orientation Not on file Last Filed Vital Signs Vital SignReadingTime TakenCommentsBlood Wsmmefjx309/7005 1:17 PM EDT Tyvae724509/12/2024 1:17 PM EDTTemperature--Respiratory Rate--Oxygen Saturation-- Inhaled Oxygen Concentration--Ionngw56.3 kg (133 lb)09/12/2024 1:17 PM EDTHeight 177.8 cm (5' 10 )09/12/2024 1:17 PM EDTBody Mass Index19.0809/12/2024 1:17 PM EDT Plan of Treatment DateTypeDepartmentCare Team (Latest Contact Info)Qfijndzifpr98/02/2026 2:00 PM ESTOffice Visit [facility] [address] [place] [phone] Carmen Herrera MD [address] [place] [address] Health MaintenanceDue DateLast DoneCommentsCT Ihgsnzmtokkc66/18/1961Colonoscopy 1Colorectal Cancer Gaplnudcj37/18/1961FIT-DNA (Cologuard)1960FIT 1960HIV Evcmjsahc89/18/1961Lipid Panel1960Medicare Annual Wellness Visit (AWV)1960 2127Ppmukhlymjbrm93/18/1961MMR Vaccines (1 of 1 - Standard series)2Diabetes Kpwigdrjw99/18/1979Hepatitis C Lycmkalyz33/18/1979PSA Prostate Cancer Vbcnbbcki66/18/2006Pneumococcal Vaccine (3 of 3 - PCV20 or PCV21), 04/06/2017Influenza Vaccine (#1)2024 02/29/2024, 05/27/2023, 02/18/2022, Additional history existsCOVID-19 Vaccine (4 - 2024- season)5005/27/2023, 06/12/2022, 1DTaP/Tdap/Td Vaccines (3 - Td or Tdap)5005/31/2024, 05/14/2018HIB VaccinesAged Out 01/31/2018No longer eligible based on patient's age to complete this topic Meningococcal VaccineAged Out01/31/2018No longer eligible based on patient's age to complete this topicRSV High Risk: (Elderly (60+) or Population) Ttwvdvcnp50/20/2024Zoster UmkvxkgcViruapyxf22/20/2024, 05/14/2018HPV Vaccines Aged OutNo longer eligible based [...] Date Gildardo Paredes MD [address] [place] [address] [facility]11/17/23
--- OUTSIDE RECORDS SUMMARY | 2025-03-16 08:00 | XMS_ITS | Clinical Summary ---
Author Organization [employer] Address [id number] [address] [place] [address] Care Team Providers Care Key Sander Name Role Phone Gildardo Paredes MD Primary Care Provider [phone] Allergies No known active allergies Medications MedicationSigDispense [...] 8 % solution APPLY SOLUTION TO TOENAILS SWFZTIS3308/23/2019Active SANTYL ointment Apply 1 application topically daily.09/07/2019Active [...] tablet 6008/15/2021ctive Active Problems ProblemNoted DateDiagnosed DateSequelae, post-segyrn2601/09/2025Hypertension 01/09/20258253Zetfkpzshjjhei94/08/2025Left ventricular gsajffajazq75/08/2025ICAO (internal carotid artery occlusion), left01/09/2025hronic obstructive pulmonary ilcledh2701/09/2025Intracranial rycnlotv44/08/2025History of throat cancer 01/09/2025PAD (peripheral artery disease)02/15/2021bnormal ankle brachial index (BRITTANY)09/21/2019 Overview (09/21/2019): Added automatically from request for surgery [id number] Resolved Problems ProblemNoted DateDiagnosed DateResolved DateNon-healing wound of left heel Overview (09/21/2019): Added automatically from request for surgery [id number] Family History Medical HistoryRelationNameCommentsDiabetesBrotherAortic aneurysmMotherBreast cancerMotherDiabetesMotherRelationNameStatusCommentsBrotherDeceasedFather DeceasedMotherDeceased Social History Tobacco UseTypesPacks/DayYears UsedDateSmoking Tobacco: Every DayCigarettes Smokeless Tobacco: Never Tobacco Cessation:Ready to Q uit: Yes; Counseling Given: Yes Comments:1 pack every 5 days reported 08/15/2021 Alcohol UseStandard Drinks/WeekCommentsNot Currently0 (1 standard drink = 0.6 oz pure alcohol)01/19/18, sober as can beChildcareAnswerDate RecordedChildcare Mrppfpl6310/14/2018EmploymentAnswerDate TkxmtcffCldurlncuuRxxlrhz38/13/2019Hunger ScreeningAnswerDate RecordedWithin the past 12 months we worried whether our food would run out before we got money to buy more.Never True11/02/2023Within the past 12 months the food we bought just didn't last and we didn't have money to get more.Never True11/02/2023urpose - LifeAnswerDate RecordedPurpose and direction in faqgJdkftss58/15/2021ex and Gender InformationValueDate Recorded Sex Assigned at BirthNot on fileLegal OldMowj78/14/2018 9:50 AM ESTGender IdentityNot on fileSexual OrientationNot on file Last Filed Vital Signs Vital SignReadingTime TakenCommentsBlood Rupydttb184/99344 10:32 AM EDT Vnvrm16483/01/2024 10:32 AM NWQDlfkmdpxymb38.5 ??C (99.5 ??F)11/02/2023 10:32 AM EDTRespiratory Oxmr107311/02/2023 10:32 AM EDTOxygen Ezvilzjxxd82%11/02/2023 10:32 AM EDTInhaled Oxygen Concentration--Qwrazh33.9 kg (174 lb)11/02/2023 10:32 AM IAAVzsjvr121.8 cm (5' 10 )11/02/2023 10:32 AM EDTBody Mass Index24.9711/02/2023 10:32 AM EDT Plan of Treatment Health MaintenanceDue DateLast DoneCommentsStatin Use: Jfbszbwfsugizq35/18/1961 Tobacco Ffeowquqbm86/18/1961epression Bgabshrde88/18/9885Ynfuajggwzz39/02/2023 04/04/2020Adult BMI Kxqppsmsm28OVID-19 Vaccine ( season)501/, 06/12/2022, 12/20/2020, Additional history exists Influenza Lffcbfx32, 05/27/2023, 02/18/2022, Additional history existsTobacco Hniwyjttz32/12/2024DTaP,Tdap and Td Vaccines (3 - Td or Tdap)501/, 05/14/2018RSV ( or age 60+ yrs) Zvcjfickf31/20/2024Zoster (Shingles) SdpuwwdGzslzaraq86/20/2024, 05/14/2018 Medical Devices ImplantedTypeAreaManufacturerDevice IdentifierShelf Expiration DateModel / Serial / LotStnt Vsc Innova [id number] Rpl [id number] - [id number] Implanted:Qty: 1 on 09/28/2019 by Johan Najera MD at [facility]: [employer] [id number]/07/2021 [id number] / / [id number] Vsc Innova [id number] Rpl [id number] - [id number] - [id number] Implanted:Qty: 1 on 09/28/2019 by Johan Najera MD at [facility]: [employer] I09/16/[id number] / [id number] / Care Teams Team MemberRelationshipSpecialtyStart DateEnd Date Gildardo Paredes MD PCP - GeneralFamily Keylqblu80/14/18
--- OUTSIDE RECORDS SUMMARY | 2025-03-16 08:00 | XMS_ITS | Encounter Summary ---
Author Organization [facility] Address [facility] [place] [address] Care Team Providers Care Data Capture Specialist Name Role Phone Gildardo Paredes MD Primary Care Provider [phone] Nathaly Abernathy APRN.[employer] PROGRAMMER Unavailable [phone] Kathrine Velasquez MD Unavailable [phone] Amira Powell Unavailable Unavailable Nato Hood Unavailable Unavailable Nancy Logan RD Unavailable [phone] Source Comments In the event this information is protected by the Federal Confidentiality of Alcohol and Drug AbusePatient Records regulations: The Federal rules restrict any use of the information to criminally investigate or prosecute any alcohol or drug abuse patient.[facility] Reason for Referral * Diagnostic Procedure Only (Routine) - ClosedSpecialtyDiagnoses / Procedures Referred By ContactReferred To ContactMOLECULAR & FUNCTIONAL IMAGING Diagnoses Head and neck cancer (HCC) Weight loss Procedures NM PET/CT SKULL-THIGH SUBSEQUENT PET IMAGING CT ATTENUATION SKULL BASE MID-THIGH Kathrine Velasquez MD [address] [place] [address] [place] [address] Phone: tel: fax: Molecular Imaging [address] [place], [place] [id number] Phone: tel: Referral IDSMoreno DateExpiration DateVisits RequestedVisits [id number]/4/202512/4/202600 Reason for Visit * ReasonCommentsOrders Encounter Details DateTypeDepartmentCare Team (Latest Contact Info)Cqpsmvzymgs30/04/2025Telephone Radiation Oncology [address] [place] [address] Kathrine Velasquez MD [address] [place] [address] [place] [address] Orders Social History Tobacco UseTypesPacks/DayYears UsedDateSmoking Tobacco: VqomxoUdyxfddcxz151 Started: 06/12/2024Passive Smoke Exposure: PastSmokeless Tobacco: Never Comments:Quit 06/12/24 Alcohol UseStandard Drinks/WeekCommentsYes0 (1 standard drink = 0.6 oz pure alcohol)not weeklyPHQ-2AnswerDate RecordedPHQ-2 gixtl765Hunger Vital SignAnswerDate RecordedWithin the past 12 months, you worried that your food would run out before you got the money to buymore.Never true03/06/2025Within the past 12 months, the food you bought just didn't last and you didn't have money to get more.Never true03/06/2025rea Deprivation IndexAnswerDate Recorded National Score (1-100), lower number is lower ulla770209/16/2022State Score (1- 10), lower number is lower [id number] from: https://www.neighborhoodatlas.medicine.[facility].edu/. Last address used for gp[address]phd[address]/16[address][birth year]22Sex and Gender InformationValueDate RecordedSex Assigned at BirthNot on fileLegal EicIvex2707/16/2020 4:08 PM EDT Gender IdentityNot on fileSexual OrientationNot on filedocumented as of this encounter Functional Status * Are you deaf or do you have serious difficulty hearing?AnswerDate of FzmhkfkryrUqssczWx18/25/2022 12:57 PM Loree Nunez RN * Are you blind or do you have serious difficulty seeing, even when wearing glasses?AnswerDate of NjkoeapqktSrofelNd17/25/2022 12:57 PM Loree Nunez RN * Do you have serious difficulty walking or climbing stairs?AnswerDate of AcxsrjuwdxVakogyIu83/25/2022 12:57 PM Loree Nunez RN * Do you have difficulty dressing or bathing?AnswerDate of AssessmentAuthorNo 06/28/2021 12:57 PM Loree Nunez RN * Because of a physical, mental, or emotional condition, do you have difficulty doing errands alone such as visiting a doctor's office or shopping?AnswerDate of TdqekabkleGduetgQc79/25/2022 12:57 PM Loree Nunez RN documented as of this encounter Mental Status * Because of a physical, mental, or emotional condition, do you have serious difficulty concentrating, remembering, or making decisions?AnswerEntry Date DjmqeoKb25/25/2022 12:57 PM Loree Nunez RN documented in this encounter Miscellaneous Notes * Telephone Encounter - Katrin Burton RN - 03/07/2025 1:07 PM EST Please sign new pet order for next week. Thank you! Katrin Burton RN documented in this encounter Plan of Treatment DateTypeDepartmentCare Team (Latest Contact Info)Lghulapmcwc65/04/2025 10:30 AM ESTEducation Nutrition Therapy [address] [place] [address] Nancy Logan, RD [address] [place] [address] /u006/20/2025 11:00 AM ESTOffice Visit [facility] [address] [place] [address] [facility]06/27/2025 1:45 PM ESTOffice Visit Radiation Oncology [address] [place], [place] [id number] Kathrine Velasquez MD [address] [place] [address] [place] [address] 6 month follow updocumented as of this encounter Visit Diagnoses Diagnosis 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, face, and neck Weight loss Loss of weight documented in this encounter Care Teams Team MemberRelationshipSpecialtyStart DateEnd Date Gildardo Paredes MD [address] [place] [address] [facility]CP - [facility]07/16/20 Nathaly Abernathy APRN.[employer] PROGRAMMER [address] [place] [address] [place] [address] Nurse PractitionerHematology/Oncology08/07/20 Kathrine Velasquez MD [address] [place] [address] [place] [address] PhysicianRadiation Oncology08/07/20 Amira Powell LSW Social Worker09/16/21 Nato Hood PA Family Medicine05/24/[address] [place] [address] [place] [address] Fubgfqhrp79/3/25documented as of this encounter
--- OUTSIDE RECORDS SUMMARY | 2025-03-16 08:00 | XMS_ITS | Clinical Summary ---
Author Organization [facility] Address [address] [place] [address] Care Team Providers Care Direct Service Professional Name Role Phone Gildardo Paredes MD Primary Care Provider [phone] Nathaly Abernathy APRN.INSTRUCTIONAL TECHNOLOGY DIRECTOR Unavailable [phone] Kathrine Velasquez MD Unavailable [phone] Amira Powell Unavailable Unavailable Nato Hood Unavailable Unavailable Nancy Logan RD Unavailable [phone] Allergies No known active allergies Medications * This document contains information received from the source organization and may not represent a complete record from that organization. MedicationSigDispense QuantityRefillsLast FilledStart DateEnd DateStatus albuterol (PROVENTIL) 2.5 mg /3 mL (0.083 %) nebulizer solution 2.5 mg.02/15/2018Active albuterol HFA (PROVENTIL HFA, VENTOLIN HFA) 90 mcg/actuation inhaler q 4 HR.Active ipratropium-albuterol (DUONEB) 0.5 mg-3 mg(2.5 mg base)/3 mL nebu Inhale 3 mL as instructed as needed for wheezing/shortness of breath. 02/15/2018Active topiramate (TOPAMAX) 100 mg tablet Take 100 mg by mouth twice daily.07/23/2020ctive zolpidem (AMBIEN) 10 mg Take 10 mg by mouth at bedtime as needed.01/31/2019Active oxyCODONE-acetaminophen (PERCOCET 10) 10-325 mg tablet Take 1 tablet by mouth four times daily as needed.10/02/2020ctive aspirin, enteric coated (ASPIRIN, ENTERIC COATED) 81 mg EC tablet Take 81 mg by mouth once daily.Active BREO ELLIPTA 100-25 mcg/dose inhaler INHALE 1 PUFF BY MOUTH ONCE DAILY05/16/2021ctive atorvastatin (LIPITOR) 20 mg tablet Take by mouth.06/10/2022ctive omeprazole (PRILOSEC) 40 mg capsule Take 40 mg by mouth twice daily.06/30/2022ctive metoprolol succinate ER (TOPROL XL) 50 mg 24 hr tablet Take 50 mg by mouth once daily.05/26/2022ctive megestrol (MEGACE) 400 mg/10 mL (40 mg/mL) suspension take 20 milliliters by mouth once daily 480 mL tive clopidogrel (PLAVIX) 75 mg tablet Take 75 mg by mouth./ctive fluconazole (DIFLUCAN) 100 mg tablet Take 1 tablet by mouth once daily for 7 days. 7 tablet Expired Active Problems ProblemNoted DateDiagnosed VjvpDlfxsh69/16/2022hysical omcbwumvecyfvt43/08/2022 Essential hypertension, helisk5706/25/2021 Assessment & Plan (06/26/2021 11:51 AM EST): [...] 127/70 10/02/2020 121/66 09/25/2020 144/60 09/24/2020 140/60 Lrpaxhvvhvh20/22/2022 Assessment & Plan (06/25/2021 6:40 AM EST): Assessment: controlled on rx PVD (peripheral vascular disease)06/25/2021 Assessment & Plan (06/26/2021 11:49 AM EST): Assessment: hx LE stent, daily ASA therapy held for surgery PLAN: Will monitor with ICD in house and resume ASA postoperative Assessment & Plan (06/25/2021 6:40 AM EST): Assessment: hx LE stent, daily ASA therapy Peripheral lmynxyeett14/22/2022 Assessment & Plan (06/25/2021 6:41 AM EST): Assessment: 2/2 chemo, no rx History of transient ischemic attack (TIA)06/25/2021 Assessment & Plan (06/25/2021 6:41 AM EST): Assessment: hx daily ASA therapy COPD (chronic obstructive pulmonary disease)06/25/2021 Assessment & Plan (06/26/2021 11:45 AM EST): Assessment: controlled on prescriptions as needed, no CPAP PLAN: Order home meds in house Assessment & Plan (06/25/2021 6:42 AM EST): Assessment: controlled on rx and as needed Current whyejf6806/25/2021 Assessment & Plan (06/26/2021 11:43 AM EST): Assessment: current home use PLAN: Cessation advised and f/u with pcp Assessment & Plan (06/25/2021 6:42 AM EST): Assessment: 1-2ppd/40 years GERD (gastroesophageal reflux disease)06/25/2021 Assessment & Plan (06/25/2021 6:42 AM EST): Assessment: controlled on rx Usortiwjqqx62/22/2022 Assessment & Plan (06/25/2021 6:43 AM EST): Assessment: diet controlled Gbekozlwpr81/22/2022 Assessment & Plan (06/25/2021 6:44 AM EST): Assessment: stable on rx Bulvihis34/22/2022 Assessment & Plan (06/25/2021 6:44 AM EST): Assessment: controlled on rx and as needed Pnkleljs87/22/2022 Assessment & Plan (06/25/2021 6:45 AM EST): Assessment: on rx Ojyxhmrlw56/22/2022 Assessment & Plan (06/26/2021 3:17 PM EST): Assessment: POA, has to bring food back up at times PLAN: spoke to Speech plan MBS, was never done previously per patient Assessment & Plan (06/25/2021 6:46 AM EST): Assessment: swallowing medication Oropharnyx jhasnu5206/25/2021 Assessment & Plan (06/26/2021 11:42 AM EST): Assessment: s/p right radical neck dissection 06/25/21. Hx of right BOT scc, chemoradiation 7000cGy in [address] Velasquez completed 09/28/20. PET scan 12/25/20 showing right level II cervicalnode with repeat PET scan on 04/05/21 showing increase in size consistent with recurrence. FNA 05/15/21 - suspicion for SCC. PLAN: Incision and drain care, awaiting final pathology for further treatment plan Cancer of base of fibtzh4208/02/2020 Assessment & Plan (06/25/2021 6:47 AM EST): Assessment: s/p chemoradiation 09/2020, now with recurrence Severe protein-calorie oxhmrdyelvlx73/31/2021 Encounters DateTypeDepartmentCare JnpyCcsrasixxen26/11/2025 11:15 AM EST - 03/14/2025 11:59 PM ESTHospital Encounter Radiology Pet CT [address] [place] [address] [place] [address] Head and neck cancer (HCC) [C76.0] Discharge Disposition: Home03/14/2025Telephone Radiation Oncology [address] [place] [address] Kathrine Velasquez MD Opened In Error03/07/2025Telephone Radiation Oncology [address] [place] [address] Kathrine Velasquez MD Dbnruo3003/06/2025 10:30 AM ESTEducation Nutrition Therapy [address] [place] [address] Nutrition Tbesemrppr39/03/2025 Patient Msg Nutrition Therapy [address] [place] [address] Provider, Ccf Ltiyfvxta04/23/2025Telephone Radiation Oncology [address] [place] [address] [place] [address] Kathrine Velasquez MD Medication Aioayun8702/21/2025 4:00 PM EDTOffice Visit Radiation Oncology [address] [place] [address] [place] [address] Kathrine Velasquez MD Head and neck cancer (HCC) (Primary Dx)02/21/20257145Ypxcsl33/15/2025Telephone Radiation Oncology [address] [place] [address] [place] [address] Kathrine Velasquez MD Yecozarykek74/19/2025 1:15 PM EDTOffice Visit Radiation Oncology [address] [place] [address] [place] [address] Kathrine Velasquez MD Hypothyroidism due to acquired atrophy of thyroid (Primary Dx)12/20/2024Travel from Last 3 Months Immunizations ImmunizationAdministration DatesNext DueCOVID- original vaccine, age 12+ yr, monovalent ([employer]-NeurAxon - PURPLE TOP)12/20/2020,08/01/2020,07/11/2020OVID- vaccine, unspecified uexhqtbdrnw43/19/2021,07/11/2020Haemophilus influenzae b (Hib PRP-T) vaccine, 4-dose series (ACTHIB, HIBERIX)01/31/2018influenza (IIV3) vaccine, trivalent (AFLURIA, FLULAVAL, FLUVIRIN, FLUZONE)03/04/2020influenza (IIV4) vaccine, age 6 mo - 64 yr, quadrivalent (AFLURIA, FLULAVAL, FLUZONE) 04/06/2017influenza (IIV4) vaccine, age 6 mo - 64 yr, quadrivalent, PF (AFLURIA, FLUARIX, FLULAVAL, FLUZONE)02/18/2022,03/08/2021,03/09/2020,02/04/2019, 01/27/2018influenza (IIV4) vaccine, quadrivalent (AFLURIA, FLULAVAL, FLUZONE) 04/06/2017influenza (ccIIV4) vaccine, age 6+ mo, quadrivalent, PF (FLUCELVAX) 05/27/2023meningococcal (MenACWY-CRM) vaccine, quadrivalent (MENVEO)01/31/2018 meningococcal (MenACWY-D) vaccine, quadrivalent (MENACTRA)01/31/2018 meningococcal B (MenB-4C) vaccine (BEXSERO)01/31/2018pneumococcal conjugate (PCV13) vaccine, 13 valent (PREVNAR 13)01/31/2018pneumococcal polysaccharide (PPV23) vaccine, 23 valent (PNEUMOVAX 23)04/06/2017respiratory syncytial virus (RSV) vaccine, adjuvanted (AREXVY)07/22/2023tetanus diphtheria pertussis (Tdap) vaccine, age 7+ yr (ADACEL, BOOSTRIX)05/14/2018zoster (RZV) vaccine, recombinant (SHINGRIX)07/22/2023,05/14/2018 Family History Medical HistoryRelationCommentsBreast CancerMotherRelationStatusCommentsMother Social History Tobacco UseTypesPacks/DayYears UsedDateSmoking Tobacco: VokakgMfiusowxem125 Started: 06/12/2024Passive Smoke Exposure: PastSmokeless Tobacco: Never Tobacco Cessation:Counseling Given: Not Answered Comments:Quit 06/12/24 Alcohol UseStandard Drinks/WeekCommentsYes0 (1 standard drink = 0.6 oz pure alcohol)not weeklyPHQ-2AnswerDate RecordedPHQ-2 lahep642Hunger Vital SignAnswerDate RecordedWithin the past 12 months, you worried that your food would run out before you got the money to buymore.Never true03/06/2025Within the past 12 months, the food you bought just didn't last and you didn't have money to get more.Never true03/06/2025rea Deprivation IndexAnswerDate Recorded National Score (1-100), lower number is lower vfrd121909/16/2022State Score (1- 10), lower number is lower llmb991ata from: https://www.neighborhoodatlas.medicine.[facility] [place].edu/. Last address used for mcsliyneauh[address]09/16/2022Sex and Gender InformationValueDate RecordedSex Assigned at BirthNot on fileLegal QdoNict7307/16/2020 4:08 PM EDT Gender IdentityNot on fileSexual OrientationNot on file Last Filed Vital Signs Vital SignReadingTime TakenCommentsBlood Iwxpfqal845/7810 4:15 PM EDT Mvrzp98048/21/2025 4:15 PM ZXKVcnmcxfludq31.3 ??C (97.4 ??F)02/21/2025 4:15 PM EDTRespiratory Mcgp4504 4:15 PM EDTOxygen Mprochmqqq25%02/21/2025 4:15 PM EDTInhaled Oxygen Concentration--Vfzejx88.3 kg (110 lb 14.3 oz)03/06/2025 1:23 PM PECVegyry599.8 cm (5' 10 )06/10/2024 2:47 PM ESTBody Mass Index15.91 06/10/2024 2:47 PM EST Plan of Treatment DateTypeDepartmentCare Team (Latest Contact Info)Hstkhpptacm30/04/2025 10:30 AM ESTEducation Nutrition Therapy [address] [place] [address] Nancy Logan, RD [address] [address] f/u006/20/2025 11:00 AM ESTOffice Visit [facility] [address] [place] [address] LAB06/27/2025 1:45 PM ESTOffice Visit Radiation Oncology [address] [place] [address] Kathrine Velasquez MD [address] [place] [address] 6 month follow upHealth MaintenanceDue DateLast DoneCommentsAnnual PCP Team Chronic Disease Visit1978Anxiety Zlfuzxaej46/18/1979HIV Screening 1978Hepatitis C Bvtvsthhm15/18/1979CT Utqfwkxibqzt79/18/2006Cologuard (FIT-DNA)09/18/20051510Bdjnjgmjozt00/18/2006Colorectal Cancer Mcrvgnxfr57/18/2006 Fecal Occult Blood2005Prostate Cancer Screening Ucegkbdmnp88/18/2006 Bxhhreyyhqiix70/18/2006Pneumococcal Vaccine: 50+ (3 of 3 - PCV20 or PCV21) /, 04/06/2017Medicare Advantage Annual Wellness Visit 5Covid-19 Vaccine ( season)5005/27/2023, 06/12/2022, 12/20/2020, Additional history existsInfluenza Vaccine (#1)01/02/2025 02/29/2024, 05/27/2023, 02/18/2022, Additional history existsDiabetes Screening /, 12/15/2023, 08/18/2023, Additional history existsLipid Dmxnpmzyi49/TaP,Tdap,Td Vaccine (3 - Td or Tdap)05/31/2034 05/31/2024, 05/14/2018RSV AseqtorLnwyvaefu72/20/2024Shingrix VaccineCompleted 07/22/2023, 05/14/2018 Procedures Procedure NamePriorityDate/TimeAssociated DiagnosisCommentsCT NECK SOFT TISSUE WO QZVHPAlvvpya31/11/2025 1:56 PM EST Head and neck cancer (HCC) Weight loss CT ABD/PEL WO DTMQVBgkxkoq04/11/2025 1:56 PM EST Head and neck cancer (HCC) Weight loss CT CHEST WO KVZXBKxihboe45/11/2025 1:56 PM EST Head and neck cancer (HCC) Weight loss GLUCOSE, BLOOD (POC)Ahlyqyl5503/14/2025 11:33 AM EST EXTERNAL LAB02/15/2025 4:03 PM EDT EXTERNAL BINOWUM5302/15/2025 4:03 PM EDT EXTERNAL IMALADR2602/15/2025 4:03 PM EDT EXTERNAL LAB02/15/2025 4:03 PM EDT TSH W/REFLEX SW3Lxnggaz02/19/2025 1:25 PM EDT Hypothyroidism due to acquired atrophy of thyroid COMPREHENSIVE METABOLIC XAHHWDtkjegc08/13/2024 8:57 AM EDT Cancer of base of tongue (HCC) Malaise and fatigue from Last 3 Months or Most Recently Relevant to Health Maintenance Results * (ABNORMAL) CT CHEST WO IVCON (03/14/2025 [...] be communicated with the ordering provider via [facility] staff message or phone message by Imaging Support Services within 2 business days of report finalization. --END OF FINDING-- Algorithms for management of incidental imaging findings can be found on the [facility] Intranet Sharepoint site at: http://spo.[facility].org/documentation/mychartlinks/Managing%20Incidental%20Findi ngs%20at%20Imaging/Forms/AllItems.aspx Transcribe Date/Time: Mar 15 2025 ??8:16A Dictated by: MARCIE LOMELI MD This examination was interpreted and the report reviewed and electronically signed by: MARCIE LOMELI MD on Mar 15 2025 ??8:25AM ??EST Thank you for allowing us to participate in the care of your patient. Should there be any questions regarding this interpretation, please call [phone]. If you are unable to reach us at the number above, please feel free to contact [facility] at [phone]. Narrative 03/15/2025 8:28 AM EST * * [...] images: No additional findings. Procedure Note Provider, [facility] [place] - 03/15/2025 * * *Final Report* * * DATE OF EXAM: Mar 14 2025 1:56PM [facility] 0541 - CT CHEST WO IVCON / [...] be communicated with the ordering provider via [facility] staff message or phone message by Imaging Support Services within 2 business days of report finalization. --END OF FINDING-- Algorithms for management of incidental imaging findings can be found on the [facility] Intranet Sharepoint site at: [email or web address]/documentation/mychartlinks/Managing%20Incidental%20Findi ngs%20at%20Imaging/Forms/AllItems.aspx Transcribe Date/Time: Mar 15 2025 8:16A Dictated by: MARCIE LOMELI MD This examination was interpreted and the report reviewed and electronically signed by: MARCIE LOMELI MD on Mar 15 2025 8:25AM EST Thank you for allowing us to participate in the care of your patient. Should there be any questions regarding this interpretation, please call [phone]. If you are unable to reach us at the number above, please feel free to contact [facility] at [phone]. Authorizing ProviderResult TypeResult StatusG Сергей Velasquez MDCT-PAMAFinal [...] any questions regarding this interpretation, please call [phone]. If you are unable to reach us at the number above, please feel free to contact [facility] at [phone]. Narrative 03/15/2025 8:16 AM EST * * *Final Report* * * DATE OF EXAM: Mar 14 2025 ??1:56PM ?? [facility]C ?? 0531 ??- ??CT ABD/PEL WO IVCON [...] images: No additional findings. Procedure Note Provider, [facility] - 03/15/2025 * * *Final Report* * * DATE OF EXAM: Mar 14 2025 1:56PM [facility] 0531 - CT ABD/PEL WO IVCON / [...] any questions regarding this interpretation, please call [phone]. If you are unable to reach us at the number above, please feel free to contact [facility] at [phone]. Authorizing ProviderResult TypeResult StatusG Сергей Velasquez MDCT-PAMAFinal Result * CT NECK SOFT TISSUE WO IVCON (03/14/2025 1:56 PM EST)Anatomical Region LateralityModalityNeckNuclear Medicine, Nuclear MedicineSpecimen (Source) Anatomical Location / LateralityCollection Method / [...] any questions regarding this interpretation, please call [phone]. If you are unable to reach us at the number above, please feel free to [facility] at [phone]. Narrative 03/14/2025 2:29 PM EST * * [...] infection. Advanced pulmonary emphysema. Procedure Note Provider, [facility] [place] - 03/14/2025 * * *Final Report* * * DATE OF EXAM: Mar 14 2025 1:56PM [facility] 0509 - CT NECK SOFT TISSUE WO [...] any questions regarding this interpretation, please call [phone]. If you are unable to reach us at the number above, please feel free to contact [facility] at [phone]. Authorizing ProviderResult TypeResult StatusG Сергей Velasquez MDCT-PAMAFinal Result * (ABNORMAL) GLUCOSE, BLOOD (POC) (03/14/2025 11:33 AM EST)ComponentValueRef RangeTest MethodAnalysis TimePerformed AtPathologist SignatureGlucose, Point of Tbrn614(A)74 - 99 mg/dLSBeaumont HospitalComment: Location:[facility], [address] [place] [address] Dr. [place], [place], [address] The Accu-Chek Inform II glucose meter has [...] ProviderPOC TESTINGFinal Result Performing OrganizationAddressCity/State/ZIP CodePhone Number [facility] POINT OF CARE [address] [place], [place] * EXTERNAL LAB (02/15/2025 4:03 PM EDT) Only the most recent of2 resultswithin the time period is included. Narrative Authorizing ProviderResult TypeResult StatusExternal Provider PA-CLABORATORY Final Result * EXTERNAL IMAGING (02/15/2025 4:03 PM EDT)Anatomical RegionLateralityModality Other Narrative Authorizing ProviderResult TypeResult StatusExternal Provider PA-CRADIOLOGYFinal Result * EXTERNAL IMAGING (02/15/2025 4:03 PM EDT)Anatomical RegionLateralityModality Other Narrative Authorizing ProviderResult TypeResult StatusExternal Provider PA-CRADIOLOGYFinal Result * TSH W/REFLEX FT4 (12/20/2024 1:25 PM EDT)ComponentValueRef RangeTest Method Analysis TimePerformed AtPathologist SignatureTSH2.1200.270 - 4.200 mIU/L 12/21/2024 10:39 AM EDTCWOOSTER COMMUN[facility] LABSpecimen (Source) Anatomical Location / LateralityCollection Method / VolumeCollection Time Received TimeBloodBLOOD SPECIMEN / UnknownVenipuncture / Pqccsjo9312/20/2024 1:25 PM EDT12/20/2024 1:32 PM EDT Narrative Authorizing ProviderResult TypeResult StatusG Сергей Velasquez MDLABORATORYFinal ResultPerforming OrganizationAddressCity/State/ZIP CodePhone Number [facility] [address] [place] [address], * (ABNORMAL) COMPREHENSIVE METABOLIC PANEL (12/15/2023 8:57 AM EDT)Component ValueRef RangeTest MethodAnalysis TimePerformed AtPathologist Signature Protein, Total7.56.3 - 8.0 g/dL12/15/2023 11:[address] EDTNORTHCOAST [facility] LABAlbumin4.73.9 - 4.9 g/dL12/15/2023 11:[address] EDTNORTHCOAST [facility] LABCalcium, Total10.3(H)8.5 - 10.2 mg/dL12/15/2023 11:33 [address] EDTNORTHCOAST [facility] LABBilirubin, Total1.00.2 - 1.3 mg/dL12/15/2023 11:33 AM EDTNORTHCMYMICHIG[facility] LABAlkaline Efhdoyudpac7688 - 113 U/L12/15/2023 11:33 AM [facility]TNORTHCM[facility] XSAFTU0013 - 40 U/L12/15/2023 11:33 AM [facility] LABALT7(L)10 - 54 U/L12/15/2023 11:33 AM [facility] ZVWBwtvsfj133(H)74 - 99 mg/dL12/15/2023 11:33 AM [facility] LABComment: The [place] Diabetes Association (ADA) provides guidance for cutoff [...] Standards of Medical Care in Diabetes 2016, [place] Diabetes Association. Diabetes Care. 2016.39(Suppl 1). WRU125 - 24 mg/dL12/15/2023 11:33 AM [facility] LAB Creatinine0.810.73 - 1.22 mg/dL12/15/2023 11:33 AM [facility] SMVZhcoqe765725 - 144 mmol/L12/15/2023 11:33 AM [facility] LABPotassium4.43.7 - 5.1 mmol/L12/15/2023 11:33 AM [facility] TWWOusliaue13373 - 107 mmol/L12/15/2023 11:33 AM EDT [facility] IZOTR82420 - 30 mmol/L12/15/2023 11:33 AM EDT [facility] LABAnion Gap98 - 15 mmol/L12/15/2023 11:33 AM [facility] LABEstimated Glomerular Filtration Rate99 >=60 mL/min/1.73m 12/15/2023 11:33 AM EDTNORTHCOAST [facility] LABComment:Estimated Glomerular Filtration Rate (eGFR) is calculated using the 2020 CKD-EPI creatinine equation. This equation utilizes serum creatinine, sex, and age as parameters. The creatinine assay has traceable calibration to isotope dilution- mass spectrometry. Refer to KDIGO guidelines for clinical interpretation. In patients with unstable renal function, e.g. those with acute kidney injury, the eGFRmay not accurately reflect actual GFR.Specimen (Source)Anatomical Location / LateralityCollection Method / VolumeCollection TimeReceived TimeBloodBLOOD SPECIMEN / UnknownVenipuncture / Gqnalho4212/15/2023 8:57 AM EDT12/15/2023 10:54 AM EDT Narrative Authorizing ProviderResult TypeResult StatusBrdileep Cash MDLABORATORY Final ResultPerforming OrganizationAddressCity/State/ZIP CodePhone Number [facility] [address] [place] [address] from Last 3 Months or Most Recently Relevant to Health Maintenance Insurance Care Teams Team MemberRelationshipSpecialtyStart DateEnd Date Gildardo Paredes MD [address] [place], [place] [id number] PCP - GeneralFamily Medicine07/16/20 Nathaly Abernathy APRN.INSTRUCTIONAL TECHNOLOGY DIRECTOR [address] [place] [id number] Nurse PractitionerHematology/Oncology08/07/20 Kathrine Velasquez MD [address] [place] [address] [place] [address] PhysicianRadiation Oncology08/07/20 Amira [place] LSW Social Worker09/16/21 Nato Hood PA [facility] Medicine05/24/[address] [place] [address] [place] [address] Sjlxxabnn55/3/25
--- OUTSIDE RECORDS SUMMARY | 2025-03-16 08:00 | XMS_ITS | Clinical Summary ---
Author Organization [facility] Address [address], [address] [place] [address] Care Team Providers Care Rn Anesthesiology Name Role Phone Gildardo Paredes MD Primary [...] RN f/u RD f/u RD f/u Date [facility] completed smoking 05/31/2015, [facility] completed HTN and smoking 07/31/2016 ProblemNoted DateDiagnosed RbcpYzawmvhfyklz65/12/2018Hypotension due to drugs 03/15/2018Closed compression fracture of L1 lumbar gvzaxjel03/05/2018 Overview (10/11/2018): Replacing deprecated diagnoses Respiratory insufficiency/faaioxv9002/03/2018 Overview (02/03/2023): Replacing diagnoses that were inactivated after the 02/01/2023 regulatory import Jplqbshn30/03/8640Rgumvdumddrst91/03/2018Atrial sfbiocuywosw00/03/2018Acute kidney trmdtk6202/03/2018Evisceration of bowel02/03/2018Small bowel obstruction 09/02/20164508Moclzhqc82/09/2016COPD (chronic obstructive pulmonary disease) 06/12/2015TIA (transient ischemic attack)06/12/2015Essential hypertension 05/31/20154164Pjywvef74/04/2015Recurrent incisional herniaElevated C-reactive protein (CRP)Intra-abdominal abscess Resolved Problems ProblemNoted DateDiagnosed DateResolved DateCecum /21/2018 02/03/2018Injury of spleen with mqvhtwlf53L1 vertebral jafhqgin02Acute respiratory failure following trauma and btjqcdg76Acute blood loss tvsfaa16Alcohol utajwetubz92Pleural nutkgfwm23 Onmdfbojefitemsk88HemoperitoneumClosed fracture of first lumbar zkmnyovo37Closed fracture of spinous process of thoracic hopxengy57Dizziness Fuuiwpszoud46/24/Left sided annnwvoa82/23/Abdominal pain, acute, pujzhahodi28/23/Fecal fjupkggztgz73/03/2018Bandemia 02/03/20185157Decbrx32/03/2018 Immunizations ImmunizationAdministration DatesNext DueHib PRP-T, ACTHIB (age [...] Social History Tobacco UseTypesPacks/DayYears UsedDateSmoking Tobacco: Every GhgDiiyvqoljy283.2 Started: 01/01/1981Smokeless Tobacco: Never Tobacco Cessation:Counseling Given: No Alcohol UseStandard Drinks/LqppCgiguzsnEfa09 (1 standard drink = 0.6 oz pure alcohol)3-6 beers per daySex and Gender InformationValueDate RecordedSex Assigned at BirthNot on fileLegal AgcOmdv4706/14/2012 6:53 AM ESTGender Identity Not on fileSexual OrientationNot on file Last Filed Vital Signs Vital SignReadingTime TakenCommentsBlood Hdebbplf230/8311 12:58 PM EST Nvirr597903/16/2018 12:58 PM ONUQgczmiulgiq28 ??C (98.6 ??F)03/11/2018 5:15 AM EST Respiratory Imqs759505/11/2017 5:15 AM ESTOxygen Mxhshombxp07%03/15/2018 9:14 AM ESTInhaled Oxygen Concentration--Daztvx65.3 kg (144 lb)03/16/2018 12:58 PM EST Kupegk785.5 cm (5' 9.5 )03/16/2018 12:58 PM ESTBody Mass Index20.9603/16/2018 12:58 PM EST Plan of Treatment Not on file Goals GoalPatient Goal TypeAssociated ProblemsRecent ProgressPatient-Stated?Author Blood Pressure < 140/90 Blood Erggsoqa336/83(03/16/2018 12:58 PM EST)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, ROAD ADVISOR - INSPECTOR PLUMBING Insurance * Guarantor: Sepideh Cabrera TypeRelation to PatientDate of BirthPhone Billing AddressPersonal/PxtepsIlyk43/18/[address] [address] Advance Directives * Full Code (Latest Code [...] Date Gildardo Paredes MD [address] [place] [address] PCP - GeneralFamily Medicine01/27/18
--- OUTSIDE RECORDS SUMMARY | 2025-03-16 08:00 | XMS_ITS | Encounter Summary ---
Author Organization [facility] Address [address] [place] [address] Care Team Providers Care Search Engine Marketing Manager Name Role Phone Gildardo Lacy MD Primary Care Provider [phone] Gildardo Lacy MD Unavailable Encounter Details DateTypeDepartmentCare Team (Latest Contact Info)Xcjxxahvnrk50/28/2024Clinisync Result Encounter [facility] External Department Unsolicited Gildardo Lacy MD [address] [place] [address] Social History Tobacco UseTypesPacks/DayYears UsedDateSmoking Tobacco: Every DayCigarettes Smokeless Tobacco: Never Comments:11-20 cigarettes a day Alcohol UseStandard Drinks/WeekCommentsNever0 (1 standard drink = 0.6 oz pure alcohol)Caffine intake: nonePHQ-2AnswerDate RecordedPatient Health Questionnaire-2 Wrded69706/13/2023Sex and Gender InformationValueDate RecordedSex Assigned at BirthNot on fileLegal MlgUssk4707/16/2022 9:49 PM EDTGender Identity Not on fileSexual OrientationNot on filedocumented as of this encounter Functional Status * Over the past 2 weeks, how often have you been bothered by any of the following problems?QuestionAnswerDate of AssessmentAuthorLittle interest or pleasure in doing thingsSeveral days04/12/2024 1:00 PM Kristie Rios MA Feeling down, depressed, or hopelessSeveral days04/12/2024 1:00 PM Kristie Rios MAPatient Health Questionnaire-2 Pwihw91406/13/2023 1:00 PM Kristie Rios MA * QuestionAnswerDate [...] 1:00 PM Kristie Rios MAPatient Health Questionnaire-9 Pnxag66906/13/2023 1:00 PM Kristie Rios MA documented as of this encounter Plan of Treatment Not on file documented as of this encounter Procedures Procedure NamePriorityDate/TimeAssociated DiagnosisCommentsVASC US CAROTID ARTERY DUPLEX GNBYWEOLR91/28/2024 2:16 PM EST documented in this encounter Results * Vascular US carotid artery duplex bilateral (07/01/2023 2:16 PM EST)Anatomical RegionLateralityModalityNeckUltrasoundSpecimen (Source)Anatomical Location / LateralityCollection Method / VolumeCollection TimeReceived Time07/01/2023 2:16 PM EST Narrative 07/01/2023 2:18 PM EST [facility] ?[address] ? [place] [address] ? Ultrasound Report ? Signed ? Patient: FLOYD,SEPIDEH L ?MR#: [id number] ?? : 1960 ?Acct:[id number] ?? Age/Sex: 62 / M ?ADM Date: //24 ?? Loc: CARD ? Attending Dr: Gildardo Lacy M.D. ? Ordering Physician: Gildardo Lacy M.D. ?? Date of Service: 07/01/23 ?? Procedure(s): US carotid duplex BI ?? Accession Number(s): [id number] ? cc: Gildardo Lacy M.D. ? [facility] ? [address] ? [place] [address] ? Patient Name: ?? SEPIDEH Willett MARIEL ? MRN: [facility]:[id number] ? date: 1960 ?Sex: M ?? Assigned Patient Location: CARD ?? Current Patient Location: CARD ?? Accession/Order Number: [id number] ?? Exam Date: 07/01/2023 ??13:15 ?Report Date: 07/01/2023 ??14:16 ? At the request of: ?? GILDARDO ??BAMBI ? Procedure: ??US carotid duplex BI ? EXAMINATION: US carotid duplex BI ? HISTORY: Bilateral Carotid Bruit, Abnormal Ankle Brachial Index ? COMPARISON: No relevant comparison available. ? TECHNIQUE: Duplex Doppler ultrasound analysis of carotid and vertebral ?? arteries. . Bilateral carotid arterial duplex examination was performed using ?? B-mode, color flow and spectral analysis. Carotid stenosis is reported ?? according to validated velocity parameters, similar to NASCET criteria. ? FINDINGS: ? RIGHT CAROTID ARTERY ?? Mild atherosclerotic plaque ?? Subclavian: PSV: 109.7 cm/s cm/s EDV: 0.0 cm/s cm/s ?? CCA: Prox: PSV: 79.0 cm/s cm/s EDV: 19.2 cm/s cm/s ?? Mid: PSV: 60.3 cm/s cm/s EDV: 17.5 cm/s cm/s ?? Distal: PSV: 52.6 cm/s cm/s EDV: 15.3 cm/s cm/s ?? BULB: PSV: 53.7 cm/s cm/s EDV: 19.7 cm/s cm/s ?? ICA: Prox: PSV: 54.8 cm/s cm/s EDV: 25.2 cm/s cm/s ?? Mid: PSV: 80.6 cm/s cm/s EDV: 43.2 cm/s cm/s ?? Distal: PSV: 150.7 cm/s cm/s EDV: 67.1 cm/s cm/s ?? ECA: PSV: 180.8 cm/s cm/s EDV: 24.8 cm/s cm/s ?? VERTEBRAL: PSV: 82.2 cm/s cm/s EDV: 32.1 cm/s cm/s, antegrade ?? ICA/CCA ratio: PSV: 1.9 EDV: 3.5 ? LEFT CAROTID ARTERY ?? Extensive atherosclerotic plaque, occlusion of the ICA. 79% reduction in the ?? mid CCA ?? Subclavian: PSV: 153.1 cm/s cm/s EDV: 16.0 cm/s ?? CCA: Prox: PSV: 148.4 cm/s cm/s EDV: 18.3 cm/s ?? Mid: PSV: 129.8 cm/s cm/s EDV: 16.0 cm/s ?? Distal: PSV: 141.4 cm/s cm/s EDV: 11.4 cm/s ?? BULB: PSV: 97.3 cm/s cm/s EDV: 13.7 cm/s ?? ICA: Prox: PSV: 52.5 cm/s cm/s EDV: 8.0 cm/s ?? Mid: PSV: Occluded ?? Distal: PSV: Occluded ?? ECA: PSV: 122.9 cm/s cm/s EDV: 25.3 cm/s ?? VERTEBRAL: PSV: 127.5 cm/s cm/s EDV: 41.6 cm/s, antegrade ?? ICA/CCA ratio: PSV: 0.7 EDV: 0.7 ? US/US carotid duplex BI ?? IMPRESSION: ? 0-49% flow stenosis right internal carotid artery ? Occlusion of the left internal carotid artery with 79% flow stenosis in the ?? left CCA ? Spectral Doppler US Thresholds (Reference: Jesse WARD, et al. Radiology 2000; ?? 214:247-252) ?? Stenosis (%) PSV (cm/sec) VICA/VCCA ?? 0-49 <150 <2.5 50-69 150-225 2.5-4.0 ?? >70 >225 >4.0 ? Electronically authenticated by: ALBINA ??BENEDICTO ?? Date: 07/01/2023 ??14:16 ? Dictated By: ?Albina Diane M.D. ? Signed By: ?07/01/23 1418 ? DD/ 1416 ? TD/TT: ? Stockroom Keeper: Procedure Note Radiology, Radiologist, MD - 07/01/2023 [place] [address] Ultrasound Report Signed Patient: SEPIDEH FLOYD LMR#: [id number] : 1960cct:[id number] Age/Sex: 62 / MADM Date: 07/01/23 Loc: CARD Attending Dr: Gildardo Lacy M.D. Ordering Physician: Gildardo Lacy M.D. Date of Service: 07/01/23 Procedure(s): US carotid duplex BI Accession Number(s): [id number] cc: Gildardo Lacy M.D. The [place] [id number] Patient Name: SEPIDEH FLOYD MRN: [id number] date: 1960 Sex: M Assigned Patient Location: CARD Current Patient Location: CARD Accession/Order Number: [id number] Exam Date: 07/01/2023 13:15 Report Date: 07/01/2023 [...] US Thresholds (Reference: Jesse EG, et al. Qsgcdskgg0330; 214:247-252) Stenosis (%) PSV (cm/sec) VICA/VCCA 0-49 <150 <2.5 50-69 150-225 2.5-4.0 >70 >225 >4.0 Electronically authenticated by: ALBINA DIANE Date: 07/01/2023 14:16 Dictated By: Albina Diane M.D. Signed By:07/01/23 1418 DD/ 1416 TD/TT: Stockroom Keeper: Authorizing ProviderResult TypeResult StatusMarc Bambi VOIMKathrine US PROCEDURES Final Result documented in this encounter Visit Diagnoses Not on filedocumented in this encounter Care Teams Team MemberRelationshipSpecialtyStart DateEnd Date Gildardo Lacy MD [address] [place] [address] PCP - GeneralCardiology09/12/22 Gildardo Lacy MD [address] [place] [address] PCP - Devoted09/01/24documented as of this encounter
--- OUTSIDE RECORDS SUMMARY | 2025-03-16 08:00 | XMS_ITS | Encounter Summary ---
Author Organization [facility] Address [address] [place] [address] Care Team Providers Care Lubricating Specialist Name Role Phone Gildardo Paredes MD Primary Care Provider [phone] Nathaly Abernathy APRN.PROFESSIONAL DEVELOPMENT MANAGER Unavailable [phone] Kathrine Velasquez MD Unavailable [phone] Amira Powell Unavailable Unavailable Nato Hood Unavailable Unavailable Nancy Logan RD Unavailable [phone] Source Comments In the event this information is protected by the Federal Confidentiality of Alcohol and Drug AbusePatient Records regulations: The Federal rules restrict any use of the information to criminally investigate or prosecute any alcohol or drug abuse patient.[facility] Reason for Visit * ReasonOnset DateCommentsOpened In Error03/14/2025 Encounter Details DateTypeDepartmentCare Team (Latest Contact Info)Zfrbtpwptfx67/11/2025Telephone Radiation Oncology [address] [place] [address] [place] [address] Kathrine Velasquez MD [address] [place] [address] [place] [address] Opened In Error Social History Tobacco UseTypesPacks/DayYears UsedDateSmoking Tobacco: KryfaoKyrtwvvobl856 Started: 06/12/2024Passive Smoke Exposure: PastSmokeless Tobacco: Never Comments:Quit 06/12/24 Alcohol UseStandard Drinks/WeekCommentsYes0 (1 standard drink = 0.6 oz pure alcohol)not weeklyPHQ-2AnswerDate RecordedPHQ-2 ffibm003Hunger Vital SignAnswerDate RecordedWithin the past 12 months, you worried that your food would run out before you got the money to buymore.Never true03/06/2025Within the past 12 months, the food you bought just didn't last and you didn't have money to get more.Never true03/06/2025rea Deprivation IndexAnswerDate Recorded National Score (1-100), lower number is lower abau220009/16/2022State Score (1- 10), lower number is lower bear5043Data from: https://www.neighborhoodatlas.medicine.[facility]/. Last address used for w[address]ns[address]/16/[address]22Sex and Gender InformationValueDate RecordedSex Assigned at BirthNot on fileLegal KfwMonk0507/16/2020 4:08 PM EDT Gender IdentityNot on fileSexual OrientationNot on filedocumented as of this encounter Functional Status * Are you deaf or do you have serious difficulty hearing?AnswerDate of RgejjuwhxfYckooyQz86/25/2022 12:57 PM Loree Nunez RN * Are you blind or do you have serious difficulty seeing, even when wearing glasses?AnswerDate of AdpjbvghpqFckqjeSs90/25/2022 12:57 PM Loree Nunez RN * Do you have serious difficulty walking or climbing stairs?AnswerDate of XucmpatdoiDjlfhlNh19/25/2022 12:57 PM Loree Nunez RN * Do you have difficulty dressing or bathing?AnswerDate of AssessmentAuthorNo 06/28/2021 12:57 PM Loree Nunez RN * Because of a physical, mental, or emotional condition, do you have difficulty doing errands alone such as visiting a doctor's office or shopping?AnswerDate of QughtapzclBxkkcdCv99/25/2022 12:57 PM Loree Nunez RN documented as of this encounter Mental Status * Because of a physical, mental, or emotional condition, do you have serious difficulty concentrating, remembering, or making decisions?AnswerEntry Date TayccnPh07/25/2022 12:57 PM Loree Nunez RN documented in this encounter Miscellaneous Notes * Telephone Encounter - Erika Martino RN - 03/14/2025 12:29 PM EST This encounter was opened in error. documented in this encounter Plan of Treatment DateTypeDepartmentCare Team (Latest Contact Info)Sqrykjdbunf44/04/2025 10:30 AM ESTEducation Nutrition Therapy [address] [place] [address] [place] [address] Nancy Logan, RD [address] [place] [address] f/u006/20/2025 11:00 AM ESTOffice Visit [facility] [address] [place] [address] [place] [address] LAB06/27/2025 1:45 PM ESTOffice Visit Radiation Oncology [address] [place] [address] [place] [address] Kathrine Velasquez MD [address] [place] [address] [place] [address] 6 month follow updocumented as of this encounter Visit Diagnoses Diagnosis OPENED IN ERROR- Primary To allow closing an encounter opened in error (used in SmartSet) documented in this encounter Care Teams Team MemberRelationshipSpecialtyStart DateEnd Date Gildardo Paredes MD [address] [place] [address] PCP - GeneralFamily Medicine07/16/20 Nathaly Abernathy APRN.PROFESSIONAL DEVELOPMENT MANAGER [address] [place] [address] [place] [address] Nurse PractitionerHematology/Oncology08/07/20 Kathrine Velasquez MD [address] [place] [address] [place] [address] PhysicianRadiation Oncology08/07/20 Amira Powell LSW Social Worker09/16/21 Nato Hood PA [facility]05/24/[address] [place] [address] [place] [address] Ohfyiajkf93/3/25documented as of this encounter
--- OUTSIDE RECORDS SUMMARY | 2025-03-16 08:00 | XMS_ITS | Encounter Summary ---
Author Organization [facility] Address [address] [place] [address] Care Team Providers Care Property Adjuster Name Role Phone Gildardo Paredes MD Primary Care Provider Nathaly Abernathy APRN.TRANSPORTATION DESIGN ENGINEER Unavailable [phone] Kathrine Velasquez MD Unavailable [phone] Amira Powell Unavailable Unavailable Nato Hood Unavailable Unavailable Nancy Logan RD Unavailable [phone] Source Comments In the event this information is protected by the Federal Confidentiality of Alcohol and Drug AbusePatient Records regulations: The Federal rules restrict any use of the information to criminally investigate or prosecute any alcohol or drug abuse patient.[facility] Encounter Details DateTypeDepartmentCare Team (Latest Contact Info)Oltvhdeulgv88/03/2025 Patient Msg Nutrition Therapy [address] [place] [address] Provider, [facility] Nutrition Social History Tobacco UseTypesPacks/DayYears UsedDateSmoking Tobacco: AqfwtcYpzgqyknfj089 Started: 06/12/2024Passive Smoke Exposure: PastSmokeless Tobacco: Never Comments:Quit 06/12/24 Alcohol UseStandard Drinks/WeekCommentsYes0 (1 standard drink = 0.6 oz pure alcohol)not weeklyPHQ-2AnswerDate RecordedPHQ-2 uhjas111Hunger Vital SignAnswerDate RecordedWithin the past 12 months, you worried that your food would run out before you got the money to buymore.Never true03/06/2025Within the past 12 months, the food you bought just didn't last and you didn't have money to get more.Never true03/06/2025rea Deprivation IndexAnswerDate Recorded National Score (1-100), lower number is lower ncaj752009/16/2022State Score (1- 10), lower number is lower skzk554ata from: https://www.neighborhoodatlas.medicine.[facility].edu/. Last address used for vlezmerootn[address]/16/[address]22Sex and Gender InformationValueDate RecordedSex Assigned at BirthNot on fileLegal QtpSdpb1907/16/2020 4:08 PM EDT Gender IdentityNot on fileSexual OrientationNot on filedocumented as of this encounter Functional Status * Are you deaf or do you have serious difficulty hearing?AnswerDate of IwwcmbjiabKitdxhUm95/25/2022 12:57 PM Loree Nunez RN * Are you blind or do you have serious difficulty seeing, even when wearing glasses?AnswerDate of ScsqlpkjqaJxtxnoKd82/25/2022 12:57 PM Loree Nunez RN * Do you have serious difficulty walking or climbing stairs?AnswerDate of UvffnitlbcVqlhrhDo78/25/2022 12:57 PM Loree Nunez RN * Do you have difficulty dressing or bathing?AnswerDate of AssessmentAuthorNo 06/28/2021 12:57 PM Loree Nunez RN * Because of a physical, mental, or emotional condition, do you have difficulty doing errands alone such as visiting a doctor's office or shopping?AnswerDate of PvkxbzbzmgAabddzLz20/25/2022 12:57 PM Loree Nunez RN documented as of this encounter Mental Status * Because of a physical, mental, or emotional condition, do you have serious difficulty concentrating, remembering, or making decisions?AnswerEntry Date BgysniMf06/25/2022 12:57 PM Loree Nunez RN documented in this encounter Plan of Treatment DateTypeDepartmentCare Team (Latest Contact Info)Hipuritiidk05/04/2025 10:30 AM ESTEducation Nutrition Therapy [address] [place] [address] [place] [address] Nancy Logan, SCOTT [address] [place] [address] f/u006/20/2025 11:00 AM ESTOffice Visit [facility] [address] [place] [address] [place] [place] [address] LAB06/27/2025 1:45 PM ESTOffice Visit Radiation Oncology [address] [place] [address] [place] [address] Kathrine Velasquez MD [address] [place] [address] [place] [address] 6 month follow updocumented as of this encounter Visit Diagnoses Not on filedocumented in this encounter Care Teams Team MemberRelationshipSpecialtyStart DateEnd Date Gildardo Paredes MD [address] [place] [address] PCP - GeneralFamily Medicine07/16/20 Nathaly Abernathy, ALEXY.TRANSPORTATION DESIGN ENGINEER [address] [place] [address] [place] [address] Nurse PractitionerHematology/Oncology08/07/20 Kathrine Velasquez MD [address] [place] [address] [place] [address] PhysicianRadiation Oncology08/07/20 Amira Powell LSW Social Worker09/16/21 Nato Hood, PA Family Medicine05/24/24 Nancy Logan, SCOTT [address] [place] [address] [place] [address] Njgjdsvzh27/3/25documented as of this encounter
--- OUTSIDE RECORDS SUMMARY | 2025-03-16 08:00 | XMS_ITS | Clinical Summary ---
Author Organization [facility] Address [address] [place] [address] Care Team Providers Care Quality Technician Fiberglass Name Role Phone Gildardo Paredes MD Primary Care Provider [phone] Allergies No known active allergies Medications MedicationSigDispense [...] DateCarotid stenosis, right11/18/2024Symptomatic stenosis of right carotid ycepex6911/02/2024PAD (peripheral artery disease) 5Carotid stenosis, xyryhnjey09/02/2025Encounter for pre-operative ubryprztwkg51/02/2025 Social History Tobacco UseTypesPacks/DayYears UsedDateSmoking Tobacco: Every DayCigarettes Smokeless Tobacco: Never Tobacco Cessation:Ready to Q uit: No; Counseling Given: Yes Alcohol UseStandard Drinks/WeekCommentsYes0 (1 standard drink = 0.6 oz pure alcohol)daily 3-4 per dayPHQ-2AnswerDate RecordedPatient Health Questionnaire-2 Fcyei261UT Safety & EnvironmentAnswerDate RecordedFear of Current or Ex-PartnerNot on file06/25/2023Emotionally AbusedNot on file06/25/2023hysically AbusedNot on file06/25/2023Sexually AbusedNot on file06/25/2023hysically or Sexually AbusedNot on file06/25/2023CommentsUnknownSex and Gender InformationValueDate RecordedSex Assigned at BirthNot on fileLegal SexMale 10/31/2021 12:15 AM EDTGender IdentityChoose not to /07/2025 10:13 AM EDTSexual OrientationChoose not to iwyimsde95/07/2025 10:13 AM EDT Last Filed Vital Signs Vital SignReadingTime TakenCommentsBlood Rtpzhamy249/9112/08/2024 10:20 AM EDT Iumpn547212/08/2024 10:20 AM UUJYhexklxccqh79.7 ??C (98 ??F)11/15/2024 2:28 PM EDT Respiratory Gvwp4185 10:20 AM EDTOxygen Dkgflnlfrr93%12/08/2024 10:20 AM EDTInhaled Oxygen Concentration--Wzafrw35.9 kg (132 lb)12/08/2024 10:20 AM EDT Elwmjg951.1 cm (5' 5 )12/08/2024 10:20 AM EDTBody Mass Index21.9712/08/2024 10:20 AM EDT Plan of Treatment Health MaintenanceDue DateLast DoneCommentsCT Hqeswcevtruk96/18/1961Colonoscopy 1960olorectal Cancer Qqpfghhqa69/18/1961FIT-DNA1960FIT1960 FOBT1960Medicare Annual Wellness (AWV)1960Medicare Initial Physical (IPPE)1960 3904Gocbuzlcweupk75/18/1961epression Rmbdkukwr98/18/1973 Meningococcal B Vaccine (2 of 4 - Increased Risk Bexsero 3-dose series) Meningococcal Vaccine (2 - Risk 2-dose series)03/28/2018 01/31/2018Pneumococcal Vaccine: Pediatrics (0 to 5 Years) and At-Risk Patients (6 to 64 Years) (3 of 3 - PCV20 or PCV21), 04/06/2017COVID- 19 Vaccine ( season), 06/12/2022, 12/20/2020, Additional history existsInfluenza Vaccine (#1), 02/29/2024, 05/27/2023, Additional history existsAdult Jemmaoh10, 05/14/2018HIB UvcnvgpgRytucqpbj71/30/2018Zoster InzcwcyyShvagbknf41/20/2024, 05/14/2018HPV VaccinesAged OutNo longer eligible based on [...] Paredes MD [address] [place] [place] [address] PCP - GeneralFamily Medicine10/06/23
--- OUTSIDE RECORDS SUMMARY | 2025-03-16 08:01 | XMS_ITS | Encounter Summary ---
Author Organization [facility] Address [address] [place] [address] Care Team Providers Care Bridge Carpenter Name Role Phone Gildardo Paredes MD Primary Care Provider [phone] Gildardo Paredes MD Unavailable Encounter Details DateTypeDepartmentCare Team (Latest Contact Info)Wwxugpqersn81/13/2024Clinisync Result Encounter [facility] External Department Unsolicited Provider, Generic External Data Social History Tobacco UseTypesPacks/DayYears UsedDateSmoking Tobacco: Every DayCigarettes Smokeless Tobacco: Never Comments:11-20 cigarettes a day Alcohol UseStandard Drinks/WeekCommentsYes0 (1 standard drink = 0.6 oz pure alcohol)Caffine intake: nonePHQ-2AnswerDate RecordedPatient Health Questionnaire-2 [id number] and Gender InformationValueDate RecordedSex Assigned at BirthNot on fileLegal BwlGjon5907/16/2022 9:49 PM EDTGender Identity Not on fileSexual OrientationNot on filedocumented as of this encounter Functional Status * Over the past 2 weeks, how often have you been bothered by any of the following problems?QuestionAnswerDate of AssessmentAuthorLittle interest or pleasure in doing thingsSeveral days04/12/2024 1:00 PM Kristie Rios MA Feeling down, depressed, or hopelessSeveral days04/12/2024 1:00 PM Kristie Rios MAPatient Health Questionnaire-2 Tgzid59006/13/2023 1:00 PM Kristie Rios MA * QuestionAnswerDate [...] television Not at all04/12/2024 1:00 PM Kristie Rios, MAMoving or speaking so slowly that other people could have noticed? Or the opposite - being so fidgety or restless that you have been moving around a lot more than usual.Not at all 04/12/2024 1:00 PM Kristie Rios MAThoughts that you would be better off or hurting yourself in some wayNot at all04/12/2024 1:00 PM Kristie Rios MAPatient Health Questionnaire-9 Zxchv75706/13/2023 1:00 PM Kristie Rios MA documented as of this encounter Plan of Treatment Not on file documented as of this encounter Procedures Procedure NamePriorityDate/TimeAssociated DiagnosisCommentsNM PET/CT SKULL-THIGH SUBQ12/15/2023 10:49 AM EDT documented in this encounter Results * NM PET/CT SKULL-THIGH SUBQ (12/15/2023 10:49 AM EDT)Anatomical Region LateralityModalityOtherSpecimen (Source)Anatomical Location / Laterality Collection Method / VolumeCollection TimeReceived Time12/15/2023 10:49 AM EDT Narrative 12/17/2023 10:30 AM EDT * * *Final Report* * * DATE OF EXAM: Dec 15 2023 10:49AM ?? NRN ?? [id number] ??- ??NM PET/CT SKULL-THIGH SUBQ ??/ PROCEDURE REASON: multiple diagnoses ? * * * * Physician Interpretation * * * * RESULT: EXAMINATION: BODY FDG PET-CT CLINICAL HISTORY: 63 years old Male with Cancer of base of tongue (HCC) Malaise and fatigue Malaise and fatigue . INDICATION: Subsequent treatment strategy. TECHNIQUE: Radiopharmaceutical was administered IV followed about 60 minutes later by PET imaging from vertex to proximal thighs. ??Free breathing, low dose CT of the same body region was acquired without IV contrast for attenuation correction and anatomic localization. * ??CT Dose-Length Product (DLP): 219 mGy*cm * ??CT Dose Reduction Employed: Yes * ??Blood glucose (mg/dL): 111 * ??Radiopharmaceutical Activity: 6.8 mCi * ??Radiopharmaceutical: G84-Qyfusiwvpzgkgojamt (FDG) * ??All reported standardized uptake values represent maximum SUV (SUVmax) per body weight, unless otherwise specified. COMPARISON: 02/11/2023 CORRELATION: CT neck and chest 09/10/2022 RESULT: REFERENCES: SUV reference values: * ??Blood pool (descending aorta) activity: SUVmax 2.1 * ??Background liver activity: SUVmax 2.7 Iron Piler (topogram) images: No additional findings. Notes and limitations: * ??Standardized uptake values indicate the highest activity concentration (SUVmax) at a given location but can be variable and are not absolute. * ??Physiologic/non-neoplastic uptake is common in the brain, extraocular muscles, oral cavity, tonsils, salivary glands, vocal cords, myocardium, liver, GI tract, urinary tract, and bone marrow among others. ??Certain regions and organ systems can have more intense uptake, which could confound or obscure some pathology. * ??Unenhanced imaging is limited for the evaluation of some pathology and the acquired CT was not designed to produce or replace diagnostic CT scan quality. * ??PET-CT is often not sensitive for pulmonary nodules less than 8 mm. HEAD AND NECK: Imaged Head: No abnormal uptake. ??Physiologic uptake in the brain with no definite evidence of focal abnormalities. Postsurgical changes in the right neck with no abnormal focal uptake to suggest local recurrence. Neck and Lymph Nodes: No abnormal uptake. Thyroid: No abnormal uptake. CHEST: Lungs and Airways: No abnormal uptake. ??Emphysematous changes. Pleura and Pericardium: No abnormal uptake. Cardiovascular: No abnormal uptake. ??Coronary artery calcifications. Mediastinum and Lymph Nodes: No abnormal uptake. ABDOMEN AND PELVIS: Hepatobiliary: No abnormal uptake. ??Cholecystectomy. Spleen: No abnormal uptake. Pancreas: No abnormal uptake. Adrenals: No abnormal uptake. Urinary Tract: No abnormal uptake. ??Nonobstructing renal calculi GI Tract: No abnormal uptake. Peritoneum: No abnormal uptake. Vasculature: No abnormal uptake. ??Aortic atherosclerotic calcifications without aneurysm Retroperitoneum and Lymph Nodes: No abnormal uptake. Pelvis: No abnormal uptake. MUSCULOSKELETAL: Osseous: No abnormal uptake. ??Degenerative changes. Soft Tissues: No abnormal uptake. IMPRESSION: HEAD/NECK: * ??No FDG avid neoplastic process. CHEST: * ??No FDG avid neoplastic process. ABDOMEN/PELVIS: * ??No FDG avid neoplastic process. MUSCULOSKELETAL: * ??No FDG avid neoplastic process. Transcribe Date/Time: Dec 17 2023 10:16A Dictated by: JANETH EVANS MD This examination was interpreted and the report reviewed and electronically signed by: JANETH EVANS MD on Dec 17 2023 10:28AM ??EST Thank you for allowing us to participate in the care of your patient. Should there be any questions regarding this interpretation, please call [phone]. If you are unable to reach us at the number above, please feel free to contact [facility] at [phone]. [id number]^AGFA_IDC^SI^ACN Procedure Note Radiology, Radiologist, - 12/17/2023 * [...] * Radiopharmaceutical Activity: 6.8 mCi * Radiopharmaceutical: A73-Wcptbvcrawndjpmgis (FDG) * All reported standardized uptake values represent maximum SUV (SUVmax) per body weight, unless otherwise specified. COMPARISON: 02/11/2023 CORRELATION: CT neck and chest 09/10/2022 RESULT: REFERENCES: SUV reference values: * Blood pool (descending aorta) activity: SUVmax 2.1 * Background liver activity: SUVmax 2.7 Iron Piler (topogram) images: No additional findings. Notes and [...] any questions regarding this interpretation, please call [phone]. If you are unable to reach us at the number above, please feel free to contact [facility] at [phone]. [id number]^AGFA_IDC^SI^ACN Authorizing ProviderResult TypeResult StatusGeneric External Data Provider CLINISYNC IMAGINGFinal Result documented in this encounter Visit Diagnoses Not on filedocumented in this encounter Care Teams Team MemberRelationshipSpecialtyStart DateEnd Date Gildardo Paredes MD [address] [place] [address] PCP - GeneralCardiology09/12/22 Gildardo Paredes MD [address] [place] [address] PCP - Devoted09/01/24documented as of this encounter
--- OUTSIDE RECORDS SUMMARY | 2025-03-16 08:01 | XMS_ITS | Encounter Summary ---
Author Organization [facility] Address [address] [place] [address] Care Team Providers Care Sales Attendant Building Materials Name Role Phone Gildardo Paredes MD Primary Care Provider [phone] Gildardo Paredes MD Unavailable Encounter Details DateTypeDepartmentCare Team (Latest Contact Info)Nclpndvzrfm39/20/2024Clinisync Result Encounter [facility] External Department Unsolicited Provider, Generic External Data Social History Tobacco UseTypesPacks/DayYears UsedDateSmoking Tobacco: Every DayCigarettes Smokeless Tobacco: Never Comments:11-20 cigarettes a day Alcohol UseStandard Drinks/WeekCommentsYes0 (1 standard drink = 0.6 oz pure alcohol)Caffine intake: nonePHQ-2AnswerDate RecordedPatient Health Questionnaire-2 Xxxbu450Sex and Gender InformationValueDate RecordedSex Assigned at BirthNot on fileLegal XgxVvcr3807/16/2022 9:49 PM EDTGender Identity Not on fileSexual OrientationNot on filedocumented as of this encounter Functional Status * Over the past 2 weeks, how often have you been bothered by any of the following problems?QuestionAnswerDate of AssessmentAuthorLittle interest or pleasure in doing thingsSeveral days04/12/2024 1:00 PM Kristie Rios MA Feeling down, depressed, or hopelessSeveral days04/12/2024 1:00 PM Kristie Rios MAPatient Health Questionnaire-2 Tkgju37106/13/2023 1:00 PM Kristie Rios MA * QuestionAnswerDate [...] 1:00 PM Kristie Rios MAPatient Health Questionnaire-9 Krzgt77606/13/2023 1:00 PM Kristie Rios MA documented as of this encounter Plan of Treatment Not on file documented as of this encounter Procedures Procedure NamePriorityDate/TimeAssociated DiagnosisCommentsMR SHOULDER RIGHT WO IV AAYGZOXG81/20/2024 1:28 PM EDT documented in this encounter Results * MR shoulder right wo IV contrast (12/22/2023 1:28 PM EDT)Anatomical Region LateralityModalityUpper Extremities, ShoulderRightMagnetic ResonanceSpecimen (Source)Anatomical Location / LateralityCollection Method / VolumeCollection TimeReceived Time12/22/2023 1:28 PM EDT Narrative 12/22/2023 1:30 PM EDT [facility] ?[address] ? [place] [address] ? Magnetic Resonance Report ? Signed ? Patient: FLOYD,SEPIDEH L ?MR#: [id number] ?? : 1960 ?Acct:[id number] ?? Age/Sex: 63 / M ?ADM Date: 08/19/24 ?? Loc: MRI ? Attending Dr: Melani Ramachandran D.O. ? Ordering Physician: Melani Ramachandran D.O. ?? Date of Service: 12/21/23 ?? Procedure(s): MR shoulder RT wo con ?? Accession Number(s): [id number] ? cc: Gildardo Paredes M.D.; Melani Ramachandran D.O. ? [facility] ? [address] ? [place] [address] ? Patient Name: ?? SEPIDEH FLOYD ? MRN: [facility]:[id number] ? date: 1960 ?Sex: M ?? Assigned Patient Location: MRI ?? Current Patient Location: MRI ?? Accession/Order Number: [id number] ?? Exam Date: 12/21/2023 ??10:00 ?Report Date: 12/22/2023 ??13:28 ? At the request of: ?? MELANI ??DUARTE ? Procedure: ??MR shoulder RT wo con ? EXAM: MR shoulder RT wo con ? HISTORY: Right Shoulder Internal Derangement M24.811 ? COMPARISON: 04/15/2022 ? TECHNIQUE: MRI images obtained with multiple sequences. MRI of the right ?? shoulder without contrast. Sequences obtained by standard department protocol. ? FINDINGS: ?? Full-thickness tear of the distal supraspinatus/infraspinatus junction ?? measuring 1 cm in diameter (sagittal STIR image 15). ? Bone anchors of the proximal humerus. ? Subacromial, subdeltoid bursal fluid, consistent with bursitis. ? Mild degeneration of the acromioclavicular joint. ? Biceps tendon is intact and within the intertubercular groove. ? Teres minor is intact. Subscapularis tendon is intact. ? Muscle bulk of the rotator cuff is preserved. ? No labral detachment. ? No acute fracture. No acute bone marrow edema. ? MR/MR shoulder RT wo con ?? IMPRESSION: ?? 1. Full-thickness tear of the distal supraspinatus/infraspinatus junction ?? measuring 1 cm in diameter (sagittal STIR image 15). ?? 2. No labral detachment. ?? 3. Biceps tendon is intact and within the intertubercular groove. ? Electronically authenticated by: PAPITO ??NCI ?? Date: 12/22/2023 ??13:28 ? Dictated By: ?Papito Myers M.D. ? Signed By: ?12/22/23 1330 ? DD/ 1328 ? TD/TT: ? Dedenter: Procedure Note Radiology, Radiologist, - 12/22/2023 [place] [address] Magnetic Resonance Report Signed Patient: SEPIDEH FLOYD LMR#: [id number] : 1960cct:[id number] Age/Sex: 63 / MADM Date: 12/21/23 Loc: MRI Attending Dr: Melani Ramachandran D.O. Ordering Physician: Melani Ramachandran D.O. Date of Service: 12/21/23 Procedure(s): MR shoulder RT wo con Accession Number(s): [id number] cc: Gildardo Paredes M.D.; Melani Ramachandran D.O. The [place] [id number] Patient Name: SEPIDEH FLOYD MRN: [id number] date: 1960 Sex: M Assigned Patient Location: MRI Current Patient Location: MRI Accession/Order Number: [id number] Exam Date: 12/21/2023 10:00 Report Date: 12/22/2023 [...] M.D. Signed By:12/22/23 1330 DD/ 1328 TD/TT: Dedenter: Authorizing ProviderResult TypeResult StatusGeneric External Data ProviderIMG MRI PROCEDURESFinal Result documented in this encounter Visit Diagnoses Not on filedocumented in this encounter Care Teams Team MemberRelationshipSpecialtyStart DateEnd Date Gildardo Paredes MD [address] [place] [address] PCP - GeneralCardiology09/12/22 Gildardo Paredes MD [address] [place] [address] PCP - Devoted09/01/24documented as of this encounter
--- OUTSIDE RECORDS SUMMARY | 2025-03-16 08:01 | XMS_ITS | Encounter Summary ---
Author Organization [facility] Address [address] [place] [address] Care Team Providers Care Wood Heel Fitter Machine Name Role Phone Gildardo Paredes MD Primary Care Provider [phone] Gildardo Paredes MD Unavailable Encounter Details DateTypeDepartmentCare Team (Latest Contact Info)Buesndpuqog34/17/2025Clinisync Result Encounter [facility] External Department Unsolicited Cassie Hood, EMILIE [address] [place] [address] Social History Tobacco UseTypesPacks/DayYears UsedDateSmoking Tobacco: Every DayCigarettes Smokeless Tobacco: Never Comments:11-20 cigarettes a day Alcohol UseStandard Drinks/WeekCommentsYes0 (1 standard drink = 0.6 oz pure alcohol)Caffine intake: nonePHQ-2AnswerDate RecordedPatient Health Questionnaire-2 Eijkj77306/13/2023Sex and Gender InformationValueDate RecordedSex Assigned at BirthNot on fileLegal WzmMzng1707/16/2022 9:49 PM EDTGender Identity Not on fileSexual OrientationNot on filedocumented as of this encounter Plan of Treatment Not on file documented as of this encounter Procedures Procedure NamePriorityDate/TimeAssociated DiagnosisCommentsMR SHOULDER RIGHT WO IV ZDWHNLDP27/17/2025 2:59 PM EST documented in this encounter Results * MR shoulder right wo IV contrast (05/20/2024 2:59 PM EST)Anatomical Region LateralityModalityUpper Extremities, ShoulderRightMagnetic ResonanceSpecimen (Source)Anatomical Location / LateralityCollection Method / VolumeCollection TimeReceived Time05/20/2024 2:59 PM EST Narrative 05/20/2024 3:01 PM EST [facility] ?[address] ? [place] [address] ? Magnetic Resonance Report ? Signed ? Patient: FLOYD,SEPIDEH L ?MR#: [id number] ?? : 1960 ?Acct:[id number] ?? Age/Sex: 63 / M ?ADM Date: 05/20/24 ?? Loc: MRI ? Attending Dr: Cassie Hood PA ? Ordering Physician: Cassie Hood ?? Date of Service: 05/20/24 ?? Procedure(s): MR shoulder RT wo con ?? Accession Number(s): [id number] ? cc: Cassie Hood; Gildardo Paredes M.D. ? [facility] ? [address] [facility] ? [place] [address] ? Patient Name: ?? SEPIDEH FLOYD ? MRN: [facility]:[id number] ? date: 1960 ?Sex: M ?? Assigned Patient Location: MRI ?? Current Patient Location: MRI ?? Accession/Order Number: [id number] ?? Exam Date: 05/20/2024 ??09:45 ?Report Date: 05/20/2024 ??14:59 ? At the request of: ?? CASSIE HOOD ? Procedure: ??MR shoulder RT wo con ? EXAM: MR shoulder RT wo con. ? HISTORY: Internal derangement of right shoulder. ? COMPARISON: 12/21/2023 ? TECHNIQUE: MRI images obtained with multiple sequences. MRI of the right ?? shoulder without contrast. Sequences obtained by standard department protocol. ? FINDINGS: ?? Normal alignment of the acromioclavicular joint. ? Subacromial subdeltoid bursal fluid and glenohumeral joint fluid. ? Full-thickness tear of the distal supraspinatus/infraspinatus junction, ?? measuring approximately 1.8 cm in width. There is 2.3 cm of retraction. ? Teres minor is intact. Subscapularis is intact. ? No labral detachment. ? Muscle bulk of the rotator cuff is preserved. ? Bone anchors of the proximal humerus. ? No right axillary adenopathy. ? No acute fractures. ? Bone anchors of the proximal humerus. ? No mass or consolidation of the right lung. ? MR/MR shoulder RT wo con ?? IMPRESSION: ? 1. Full-thickness tear of the distal supraspinatus/infraspinatus junction, ?? measuring approximately 1.8 cm in width. There is 2.3 cm of retraction. ? 2. Bone anchors of the proximal humerus. ? 3. No acute fractures. ? 4. No labral detachment. ? Electronically authenticated by: PAPITO ??NIC ?? Date: 05/20/2024 ??14:59 ? Dictated By: ?Papito Myers M.D. ? Signed By: ?05/20/24 1501 ? DD/ 1459 ? TD/TT: ? Sorter Lumber Straightener: Procedure Note Radiology, Radiologist, MD - 05/20/2024 [place] [address] Magnetic Resonance Report Signed Patient: SEPIDEH FLOYD LMR#: [id number] : 1960cct:[id number] Age/Sex: 63 / MADM Date: 05/20/24 Loc: MRI Attending Dr: Cassie PHAN Ordering Physician: Cassie Hood Date of Service: 05/20/24 Procedure(s): MR shoulder RT wo con Accession Number(s): [id number] cc: Cassie Hood; Gildardo Paredes M.D. The [place] [id number] Patient Name: SEPIDEH FLOYD MRN: [id number] date: 1960 Sex: M Assigned Patient Location: MRI Current Patient Location: MRI Accession/Order Number: [id number] Exam Date: 05/20/2024 09:45 Report Date: 05/20/2024 [...] M.D. Signed By:05/20/24 1501 DD/ 1459 TD/TT: Sorter Lumber Straightener: Authorizing ProviderResult TypeResult StatusMattchevy Hood [facility] MRI PROCEDURES Final Result documented in this encounter Visit Diagnoses Not on filedocumented in this encounter Additional Health Concerns AssessmentNoted TimePHQ-9 Depression Total Score: 1:00 PM EST documented as of this encounter Care Teams Team MemberRelationshipSpecialtyStart DateEnd Date Gildardo Paredes MD [address] [place] [address] PCP - GeneralCardiology09/12/22 Gildardo Paredes MD [address] [place] [address] PCP - Devoted09/01/24documented as of this encounter
--- OUTSIDE RECORDS SUMMARY | 2025-03-16 08:01 | XMS_ITS ---
Author Organization [facility] Address [address] [place] [address] Care Team Providers Care Oxygen Plant Operator Name Role Phone Gildardo Paredes MD Primary Care Provider [phone] Nathaly Abernathy APRN.WILDLIFE CONSERVATIONIST Unavailable [phone] Kathrine Velasquez MD Unavailable [phone] Amira Powell Unavailable Unavailable Nato Hood Unavailable Unavailable Nancy Logan RD Unavailable [phone] Active Problems * This document contains information received from the source organization and may not represent a complete record from that organization. ProblemNoted DateDiagnosed GmlfZlvhrq98/16/2022Physical pkcjodiddokcuj91/08/2022 Essential hypertension, kkrfjd3606/25/2021 Assessment & Plan (06/26/2021 11:51 AM EST): [...] 127/70 10/02/2020 121/66 09/25/2020 144/60 09/24/2020 140/60 Iqvluqytook22/22/2022 Assessment & Plan (06/25/2021 6:40 AM EST): Assessment: controlled on rx PVD (peripheral vascular disease)06/25/2021 Assessment & Plan (06/26/2021 11:49 AM EST): Assessment: hx LE stent, daily ASA therapy held for surgery PLAN: Will monitor with ICD in house and resume ASA postoperative Assessment & Plan (06/25/2021 6:40 AM EST): Assessment: hx LE stent, daily ASA therapy Peripheral yikwflcxfj99/22/2022 Assessment & Plan (06/25/2021 6:41 AM EST): [...] controlled on rx and as needed Current obfqfy4506/25/2021 Assessment & Plan (06/26/2021 11:43 AM EST): Assessment: current home use PLAN: Cessation advised and f/u with pcp Assessment & Plan (06/25/2021 6:42 AM EST): Assessment: 1-2ppd/40 years GERD (gastroesophageal reflux disease)06/25/2021 Assessment & Plan (06/25/2021 6:42 AM EST): Assessment: controlled on rx Pzubpnztarj39/22/2022 Assessment & Plan (06/25/2021 6:43 AM EST): Assessment: diet controlled Rjlahxbjmw69/22/2022 Assessment & Plan (06/25/2021 6:44 AM EST): Assessment: stable on rx Hqwmojtk52/22/2022 Assessment & Plan (06/25/2021 6:44 AM EST): Assessment: controlled on rx and as needed Genlxwrx59/22/2022 Assessment & Plan (06/25/2021 6:45 AM EST): Assessment: on rx Eyxzvayxe66/22/2022 Assessment & Plan (06/26/2021 3:17 PM EST): Assessment: POA, has to bring food back up at times PLAN: spoke to Speech plan MBS, was never done previously per patient Assessment & Plan (06/25/2021 6:46 AM EST): Assessment: swallowing medication Oropharnyx bcbpsv9906/25/2021 Assessment & Plan (06/26/2021 11:42 AM EST): [...] further treatment plan Cancer of base of ykdlic5308/02/2020 Assessment & Plan (06/25/2021 6:47 AM EST): Assessment: s/p chemoradiation 09/2020, now with recurrence Severe protein-calorie fqnoevtsyrvx99/31/2021 Current Treatment and Therapy Plans No current plan information found. Past Treatment and Therapy Plans Plan NameStart DateDiscontinue DateTreatment MedicationsDiscontinue ReasonPlan ProviderCyclesAMB PACLITAXEL 50, CARBOPLATIN 2 D1,8,15,22,29,36,43,50 - Q56D /* CARBOplatin iv piggyback (PARAPLATIN) OtherSoren Cash MD1 of 1 cycle startedAMB CARBOPLATIN 2 D1,8,15,22,29,36,43,50 - Q56D4///08/2021* CARBOplatin iv piggyback (PARAPLATIN) Soren Jones MDTreatment not startedCISPLATIN 40 D1,8,15,22 - Q28D4/13//* CISplatin iv piggyback or iv infusion * fosaprepitant iv piggyback in NaCl 0.9% (EMEND) Treatment CompleteMuSoren coronado MD1 of 1 cycle started
--- OUTSIDE RECORDS SUMMARY | 2025-03-16 08:01 | XMS_ITS | Encounter Summary ---
Author Organization [facility] Address [address] [place] [address] Care Team Providers Care Interlocking And Signal Mechanic Name Role Phone Mike Lacy MD Primary Care Provider [phone] Mike Lacy MD Unavailable Encounter Details DateTypeDepartmentCare Team (Latest Contact Info)Kuylegvwdey80/26/2024Clinisync Result Encounter [facility] External Department Unsolicited Mike Lacy MD [address] [place] [address] Social History Tobacco UseTypesPacks/DayYears UsedDateSmoking Tobacco: Every DayCigarettes Smokeless Tobacco: Never Comments:11-20 cigarettes a day Alcohol UseStandard Drinks/WeekCommentsYes0 (1 standard drink = 0.6 oz pure alcohol)Caffine intake: nonePHQ-2AnswerDate RecordedPatient Health Questionnaire-2 Dtlhd20906/13/2023Sex and Gender InformationValueDate RecordedSex Assigned at BirthNot on fileLegal VvdDpjn0507/16/2022 9:49 PM EDTGender Identity Not on fileSexual OrientationNot on filedocumented as of this encounter Plan of Treatment Not on file documented as of this encounter Procedures Procedure NamePriorityDate/TimeAssociated DiagnosisCommentsXR FOOT LT 2 VWS 04/28/2024 7:51 AM EST documented in this encounter Results * XR FOOT LT 2 VWS (04/28/2024 7:51 AM EST)Anatomical RegionLateralityModality Radiographic ImagingSpecimen (Source)Anatomical Location / Laterality Collection Method / VolumeCollection TimeReceived Time04/28/2024 7:51 AM EST Narrative 04/28/2024 7:54 AM EST [facility] ?[address] ? [place], [id number] ?XRay Report ? Signed ? Patient: FLOYD,SEPIDEH L ?MR#: [id number] ?? : 1960 ?Acct:[id number] ?? Age/Sex: 63 / M ?ADM Date: 04/25/24 ?? Loc: RAD ? Attending Dr: Mike Lacy M.D. ? Ordering Physician: Mike Lacy M.D. ?? Date of Service: 04/25/24 ?? Procedure(s): XR foot LT 2V ?? Accession Number(s): [id number] ? cc: Mike Lacy M.D. ? [facility] ? [address] ? [place] [address] ? Patient Name: ?? SEPIDEH Willett FLOYD ? MRN: [facility]:[id number] ? date: 1960 ?Sex: M ?? Assigned Patient Location: RAD ?? Current Patient Location: ? Accession/Order Number: [id number] ?? Exam Date: 04/25/2024 ??12:15 ?Report Date: 04/28/2024 ??07:51 ? At the request of: ?? MIKE ??BAMBI ? Procedure: ??XR foot LT 2V ? PROCEDURE: XR foot LT 2V ? HISTORY: Left Foot Pain ? COMPARISON: XR foot left 12/15/2019 ? FINDINGS: ?? BONES:Transverse fractures through the neck of second, third, fourth, and 5th ?? metatarsals with medial apex angulation and partial osseous healing. No ?? significant flattening of plantar arch. ?? SOFT TISSUES:No visible soft tissue swelling. ?? EFFUSION:None visible. ?? OTHER: Negative. ? XR/XR foot LT 2V ?? IMPRESSION: ? 1. Fractures involving the necks of the second through 5th metatarsals with ?? partial osseous healing favoring subacute to early remote fractures. Findings ?? are new compared 12/15/2019. ? Electronically authenticated by: FAISAL ??RANDALL ?? Date: 04/28/2024 ??07:51 ? Dictated By: ?Faisal Ballesteros M.D. ? Signed By: ?04/28/24 0754 ? DD/ 0751 ? TD/TT: ? Coach Operator: Procedure Note Radiology, Radiologist, MD - 04/28/2024 The [place] [id number] XRay Report Signed Patient: SEPIDEH FLOYD LMR#: [id number] : 1960cct:[id number] Age/Sex: 63 / MADM Date: 04/25/24 Loc: RAD Attending Dr: Mike Lacy M.D. Ordering Physician: Mike Lacy M.D. Date of Service: 04/25/24 Procedure(s): XR foot LT 2V Accession Number(s): [id number] cc: Mike Lacy M.D. The [place] [address] Patient Name: SEPIDEH FLOYD MRN: [id number] date: 1960 Sex: M Assigned Patient [facility]: [facility] Current Patient Location: Accession/Order Number: [id number] Exam Date: 04/25/2024 12:15 Report Date: 04/28/2024 07:51 At the request of: MIKE LACY Procedure: XR foot LT 2V PROCEDURE: [...] M.D. Signed By:04/28/24 0754 DD/ 0751 TD/TT: Coach Operator: Authorizing ProviderResult TypeResult StatusMarc Bambi VOIMG XR PROCEDURES Final Result documented in this encounter Visit Diagnoses Not on filedocumented in this encounter Additional Health Concerns AssessmentNoted TimePHQ-9 Depression Total Score: 1:00 PM EST documented as of this encounter Care Teams Team MemberRelationshipSpecialtyStart DateEnd Date Mike Lacy MD [address] [place] [address] PCP - GeneralCardiology09/12/22 Mike Lacy MD [address] [place] [address] PCP - Devoted09/01/24documented as of this encounter
--- OUTSIDE RECORDS SUMMARY | 2025-03-16 08:01 | XMS_ITS | Encounter Summary ---
Author Organization [facility] Address [address] [place] [address] Care Team Providers Care Physical Sciences Instructor Name Role Phone Gildardo Paredes MD Primary Care Provider [phone] Gildardo Paredes MD Unavailable Encounter Details DateTypeDepartmentCare Team (Latest Contact Info)Sickjukljpa84/03/2024Clinisync Result Encounter [facility] External Department Unsolicited Nato Hood, EMILIE [address] [place] [address] Social History Tobacco UseTypesPacks/DayYears UsedDateSmoking Tobacco: Every DayCigarettes Smokeless Tobacco: Never Comments:11-20 cigarettes a day Alcohol UseStandard Drinks/WeekCommentsYes0 (1 standard drink = 0.6 oz pure alcohol)Caffine intake: nonePHQ-2AnswerDate RecordedPatient Health Questionnaire-2 Mkhjv71706/13/2023Sex and Gender InformationValueDate RecordedSex Assigned at BirthNot on fileLegal IfcJvgu4907/16/2022 9:49 PM EDTGender Identity Not on fileSexual OrientationNot on filedocumented as of this encounter Functional Status * Over the past 2 weeks, how often have you been bothered by any of the following problems?QuestionAnswerDate of AssessmentAuthorLittle interest or pleasure in doing thingsSeveral days04/12/2024 1:00 PM Kristie Rios MA Feeling down, depressed, or hopelessSeveral days04/12/2024 1:00 PM Kristie Rios MAPatient Health Questionnaire-2 Gflqk56806/13/2023 1:00 PM Kristie Rios MA * QuestionAnswerDate of AssessmentAuthorTrouble falling or staying asleep, or sleeping too muchSeveral days04/12/2024 1:00 PM Kristie Rios MAFeeling tired or having little energySeveral days04/12/2024 1:00 PM Kristie Rios MAPoor appetite or overeatingSeveral days04/12/2024 1:00 PM Kristie Rois MAFeeling bad about yourself - or that [...] 1:00 PM Kristie Rios MAPatient Health Questionnaire-9 Zrqcu15306/13/2023 1:00 PM Kristie Rios MA documented as of this encounter Plan of Treatment Not on file documented as of this encounter Procedures Procedure NamePriorityDate/TimeAssociated DiagnosisCommentsECG 12-LEAD02/04/2024 12:35 PM EDT documented in this encounter Results * ECG 12-LEAD (02/04/2024 12:35 PM EDT)Anatomical RegionLateralityModalityOther Specimen (Source)Anatomical Location / LateralityCollection Method / Volume Collection TimeReceived Time02/04/2024 12:35 PM EDT Narrative 02/04/2024 7:51 PM EDT [facility] ?[address] ? [place] [address] ? Electrocardiograph Report ? Signed ? Patient: FLOYD,SEPIDEH L ?MR#: [id number] ?? : 1960 ?Acct:[id number] ?? Age/Sex: 63 / M ?ADM Date: 10/03/24 ?? Loc: CARD ? Attending Dr: Nato Hood PA ? Ordering Physician: Nato Hood ?? Date of Service: 02/04/24 ?? Procedure(s): ECG 12 lead ?? Accession Number(s): [id number] ? cc: ?[facility] ? Test Date: ?2024-02-04 ?? Pat Name: ? SEPIDEH FLOYD ? Department: ? Room: ? - ?? Gender: ? Male ? Watershed Manager: ? : ?1960 ? Requested By: 0953 ?? Order Number: [id number] ?Reading MD: ?? ESAU ??BALL ? Measurements ?? Intervals ?[place] ? Rate: ? 93 ? P: ?75 ?? AL: ? 130 ?QRS: ?77 ?? QRSD: ? 94 ? T: ?80 ?? QT: ? 350 ? QTc: ?436 ? Interpretive Statements ?? SINUS RHYTHM WITH SINUS ARRHYTHMIA ?? Compared to ECG 09/30/2023 12:53:19 ?? Sinus tachycardia no longer present ?? Electronically Signed On 02-04-2024 19:51:43 EDT by ESAU ??BALL ? Dictated By: ?Ball,Esau D.O. ? Signed By: ?10/03/24 1951 ?02/04/24 1951 ? DD/ 1235 ? TD/TT: ? Jigmaker: Procedure Note Radiology, Radiologist, - 02/04/2024 [place] [address] Electrocardiograph Report Signed Patient: SEPIDEH FLOYD LMR#: [id number] : 1960cct:[id number] Age/Sex: 63 / MADM Date: 02/04/24 Loc: CARD Attending Dr: Nato PHAN Ordering Physician: Nato Hood Date of Service: 02/04/24 Procedure(s): ECG 12 lead Accession Number(s): [id number] cc: [facility] Test Date: 2024-02-04 Pat Name: SEPIDEH FLOYD Department: Room: - Gender: Male Watershed Manager: : 1960 Requested By: 0953 Order Number: [id number] Reading MD: ESAU GALINDO Measurements Intervals [place] Rate: 93 P: 75 AL: 130 QRS: 77 QRSD: 94 T: 80 QT: 350 QTc: 436 Interpretive Statements SINUS RHYTHM WITH SINUS ARRHYTHMIA Compared to ECG 09/30/2023 12:53:19 Sinus tachycardia no longer present Electronically Signed On 02-04-2024 19:51:43 EDT by ESAU GALINDO Dictated By: Esau Galindo D.O. Signed By:02/04/24195002/04/241950 DD/ 1235 TD/TT: Jigmaker: Authorizing ProviderResult TypeResult StatusMatthew J Hood [facility] Final Result documented in this encounter Visit Diagnoses Not on filedocumented in this encounter Care Teams Team MemberRelationshipSpecialtyStart DateEnd Date Gildardo Paredes MD [address] [place] [place] [address] PCP - GeneralCardiology09/12/22 Gildardo Pardees MD [address] [place] [address] PCP - Devoted09/01/24documented as of this encounter
--- OUTSIDE RECORDS SUMMARY | 2025-03-16 08:01 | XMS_ITS | Clinical Summary ---
Author Organization [facility] Address [address] [place] [address] Care Team Providers Care Principal Biostatistician Name Role Phone Gildardo Paredes MD Primary Care Provider [phone] Gildardo Paredes MD Unavailable Allergies No known [...] same time each day 60 each 5Active Apxsblaxrzc-Ndzuebvov-Laxsle (Trelegy Ellipta) 100-62.5-25 MCG/ACT aerosol powder Indications:Chronic [...] pain and lower extremity pain10/11/2024hronic hypoxic respiratory pqwfelf4509/08/2024 Assessment & Plan (10/11/2024 11:25 AM EDT): Refer to pulmonology. Assessment & Plan (09/08/2024 12:00 PM EDT): Recent hypoxia but today normal SpO2 on room air. Continue to monitor. Deesrz8908/03/2024 Assessment & Plan (08/03/2024 11:26 AM EDT): Reviewed [facility] stroke notes: multifocal infarct, Right BONY territory, recommend plavix 3 months (This would be up to and including 10/25/24) [facility] in [facility] in 4 weeks and keep appts with Neurology Unsteady gait06/01/2024 Assessment & Plan (06/01/2024 1:49 PM EST): Worsening symptoms and weakness in legs. Very unsteady when up and moving. Will order rolling walker with seat to help complete ADLs around the house. Medicare annual wellness visit, glrffdecid30/10/2024 Assessment & Plan (04/12/2024 1:41 PM EST): Reviewed labs. Discussed proper diet and regular aerobic exercise. Need aerobic exercise 5-6 days aweek for 30 minutes at a time. Smaller portions and limit total calories. Colonoscopy every 10 years. Tetanus every 10 years. Advised not to smoke. Discussed daily Aspirin therapy. Left foot pain04/12/2024bnormal TSH12/14/2023Essential pcrqzlzyejhm39/19/2024 Assessment & Plan (10/11/2024 11:26 AM EDT): [...] BP controlled and monitor PRN. Chemotherapy-induced peripheral lzabrhdzeu80/19/2024 Assessment & Plan (06/01/2024 1:49 PM EST): [...] Occasional symptoms but tolerable and continue cymbalta. Govlqeqlnkc99/19/2024Thoracic jrgpascirbn79/19/2024 Assessment & Plan (10/11/2024 11:26 AM EDT): Pain stable and continue percocet PRN. Assessment & Plan (10/21/2023 1:38 PM EDT): Pain stable and continue percocet PRN. Add celebrex. Primary /19/2024 Assessment & Plan (10/11/2024 11:26 AM EDT): Sleeping well with ambien and continue. Assessment & Plan (10/21/2023 1:36 PM EDT): Sleeping well with ambien and continue. Encounter for long-term (current) use of synmzpwmosb42/19/2024Other fatigue 10/21/2023 Assessment & Plan (10/21/2023 1:36 PM EDT): C/o fatigue and check labs. Screening PSA (prostate specific antigen)10/21/20235741Yuhibqhczjvk33/19/2024 Assessment & Plan (08/03/2024 6:26 AM EDT): Is on statin therapy Check labs yearly and prn dose changes Follow heart healthy diet Occlusion of left internal carotid hjhqiv7907/01/2023 Assessment & Plan (10/11/2024 11:26 AM EDT): Follow with vascular. Assessment & Plan (08/03/2024 6:26 AM EDT): Follows with vascular Does take asa, statin, Allergic rhinitis due to ibzllj8109/17/2022spiration into msvlfn9409/17/2022 Gastroesophageal reflux disease with esophagitis without wzaybmfbtb06/17/2023 Internal derangement of right phkxwlav92/17/2023Metastasis to head and neck lymph node09/17/2022 Assessment & Plan (10/21/2023 1:36 PM EDT): Follow up with oncology. Mixed conductive and sensorineural hearing loss of right ear with restricted hearing of left ear3Pharyngeal zhwpkg2809/17/2022haryngoesophageal ifrhodewv35/17/2808Jwodlzkd00/17/2023Tongue tzkpbx1809/17/2022 Assessment & Plan (10/11/2024 11:26 AM EDT): Follow with oncology. Assessment & Plan (06/01/2024 1:50 PM EST): Follow with oncology. Assessment & Plan (10/21/2023 1:37 PM EDT): Follow with oncology. Resolved Problems ProblemNoted DateDiagnosed DateResolved DateHistory of throat vkyurb6801/09/2025 02/13/20257586Wuzqkiqywxalwj46/08/202510/Left ventricular hypertrophy 09/08/Sequelae, post-fgcjwh43Hypertension ICAO (internal carotid artery occlusion), left01/09/2025 02/13/2025Intracranial aneurysm ([facility])Encounter for pre- operative dvirabiudev16PAD (peripheral artery disease) arotid stenosis, qkzpqjglg03Stenosis of right carotid llabqa07Pneumonia Assessment & Plan (09/08/2024 12:01 PM EDT): Symptoms improved and monitor. Mass of btkili47Non-suppurative otitis media09/17/2022 10/21/2023Mass of lznuhkptqb28 Encounters DateTypeDepartmentCare MsqrFxglpthzmhx66/09/2025 1:30 PM EDTOffice Visit [facility] [address] [place] [phone] Cal Shepherd DPM Metatarsalgia of left foot (Primary Dx); Closed displaced fracture of second metatarsal bone of left foot, sequela; Left foot pain; Equinus contracture of left ankle; Other synovitis and tenosynovitis, left ankle and foot01/10/2025amboo flowsheet [facility] [address] [place] [address] Cal Shepherd DPM 01/10/20258426Opqpfe33/29/2025Telephone [facility] [address] [place] [address] Gildardo Paredes MD 12/27/2024bstract [facility] [address] [place] [address] Sandy Negrete, 12/21/2024 2:15 PM EDTConsult [facility] [address] [place] [address] Sandy Negrete DO Cigarette smoker (Primary Dx); Chronic obstructive pulmonary disease, unspecified COPD type (HCC); Chronic hypoxic respiratory failure (HCC)12/21/2024Telephone [facility] [address] [place] [address] Gildardo Paredes MD 12/21/2024amboo flowsheet [facility] [address] [place] [address] Sandy Negrete, 12/20/2024linisync Result Encounter [facility] External Department Unsolicited Provider, Generic External Data from Last 3 Months Immunizations ImmunizationAdministration DatesNext DueHib (PRP-T)01/31/2018Influenza, injectable, MDCK, preservative free, dbhnyzbrfked78/24/2024Influenza, injectable, pojqjofqsbzk40/04/2017Influenza, injectable, quadrivalent, preservative free02/18/2022,03/08/2021,03/09/2020,02/04/2019,01/27/2018 Influenza, seasonal, ungqaifdfe82/01/2020Influenza, seasonal, injectable, preservative free02/29/2024Meningococcal B, Omv01/31/2018Meningococcal MCV4O 01/31/2018PPD Test03/08/2018Pneumococcal Conjugate PCV 13001/31/2018Pneumococcal Polysaccharide OLSM120506/07/2016RSV, recombinant, protein subunit RSVpreF, adjuvant reconstitu, 120mcg/0.5mL, PF (Arexvy)07/22/20239206AWWK-DgF-0, Unspecified 12/20/2020,07/11/2020Tdap05/31/2024,05/14/2018Zoster, Dhwmuovhpod63/20/2024, 05/14/2018 Family History Medical HistoryRelationNameCommentsCancerFatherAnemiaMaternal GrandfatherVitamin B12 DeficiencyMaternal GrandfatherBrain AneurysmMotherDiabetesMotherRelationName StatusCommentsFatherDeceasedMaternal GrandfatherMotherDeceased Social History Tobacco UseTypesPacks/DayYears UsedDateSmoking Tobacco: Every DayCigarettes Smokeless Tobacco: Never Tobacco Cessation:Ready to Q uit: Not Asked; Counseling Given: Not Answered Comments:11-20 cigarettes a day Alcohol UseStandard Drinks/WeekCommentsYes0 (1 standard drink = 0.6 oz pure alcohol)Caffine intake: nonePHQ-2AnswerDate RecordedPatient Health Questionnaire-2 Pxhsi83506/13/2023Sex and Gender InformationValueDate RecordedSex Assigned at BirthNot on fileLegal FmiRpyf9007/16/2022 9:49 PM EDTGender Identity Not on fileSexual OrientationNot on file Last Filed Vital Signs Vital SignReadingTime TakenCommentsBlood Rlxghivt430/8412/21/2024 2:12 PM EDT Mtlva260212/21/2024 2:12 PM TYHQvsfwkpyjkk65.6 ??C (97.8 ??F)10/11/2024 10:39 AM EDTRespiratory Wurr337510/11/2024 10:39 AM EDTOxygen Spaahlzfed21%12/21/2024 2:12 PM EDT3L NCInhaled Oxygen Concentration--Ulbvsi87.3 kg (133 lb)01/10/2025 1:28 PM YPQFgmiff229.8 cm (5' 10 )01/10/2025 1:28 PM EDTBody Mass Index19.08 01/10/2025 1:28 PM EDT Plan of Treatment Health MaintenanceDue DateLast DoneCommentsCT Obnmtoaxkhnf31/18/1961FIT-DNA 1960FIT1960FOBT1960 1804Schkwfknzphhh21/18/1961Pneumococcal Vaccine: Pediatrics (0 to 5 Years) and At-Risk Patients (6 to 64 Years) (3 of 3 - PCV20 or PCV21), 04/06/2017COVID-19 Vaccine (5 - 2024- season)501/, 12/20/2020, 08/01/2020, Additional history exists Influenza Vaccine (#1)510/, 05/27/2023, 02/18/2022, Additional history existsMedicare Annual Wellness (AWV)512/4Colonoscopy Colorectal Cancer Sitqfwyjb44/02/2030 Procedures Procedure NamePriorityDate/TimeAssociated DiagnosisCommentsCCF TSH W/REFLEX FT4 Djzydjf0812/20/2024 1:25 PM EDT from Last 3 Months Results * [facility] TSH W/REFLEX FT4 (12/20/2024 1:25 PM EDT)ComponentValueRef RangeTest MethodAnalysis TimePerformed AtPathologist SignatureCCF TSH SERPL-ACNC2.120 0.270 - 4.200 mIU/LCCFSpecimen (Source)Anatomical Location / Laterality Collection Method / VolumeCollection TimeReceived Time12/20/2024 1:25 PM EDT 12/20/2024 10:25 PM EDT Narrative [facility] - 12/21/2024 10:39 AM EDT Specimen Type: BLOOD SPECIMEN Ordering Facility: [facility] ?Address: [address] [place] [address] Original Ordering Provider: Kathrine CARPENTER Authorizing ProviderResult TypeResult StatusGeneric External Data Provider CLINISYNCFinal ResultPerforming OrganizationAddressCity/State/ZIP CodePhone Number [facility] [address] [facility] [address] [place] [id number] from Last 3 Months Insurance Care Teams Team MemberRelationshipSpecialtyStart DateEnd Date Gildardo Paredes MD [address] [place] [address] PCP - GeneralCardiology09/12/22 Gildardo Paredes MD [address] [place] [address] PCP - Devoted09/01/24
--- OUTSIDE RECORDS SUMMARY | 2025-03-16 08:04 | XMS_ITS | CCD ---
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 sources)Malignant neoplastic disease; Translations: [Malignant (primary) neoplasm, unspecified]Onset: 172621-76-3798OtwrkmkHgbfbtiuxqvkg mental health disorders (20 sources)Primary insomnia; Translations: [Primary insomnia]Onset: 10-21-2023 33-05-1859YprckelUqeh disorders (20 sources)Depressive disorder; Translations: [Depression]Onset: 06-25-2021 28-18-8448DtyrgolTlmygcmnpie deficiencies (20 sources)Deficiency of macronutrients; Translations: [Unspecified severe protein-calorie malnutrition]Onset: 123325-28-9500RfahtdiUmhjbxesn or stenosis of precerebral arteries (20 sources)Left carotid artery occlusion; Translations: [Occlusion and stenosis of left carotid artery]Onset: 07-01-2023 Resolved: 463521-70-3672PnbohvyHrvon acquired deformities (2 sources)Equinus contracture of the ankle; Translations: [Contracture, left ankle]71-80-2224EvhcgftUaojp aftercare (1 source)terminal supervisor (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 EHR CmteOther connective tissue disease (1 source)Nontraumatic complete rupture of rotator cuff of right shoulder; Translations: [Complete rotator cuff tear or rupture of right shoulder, not specified as traumatic]53-62-2957MdhyxdppKbfyd connective tissue disease (1 source)Bicipital tendinitis, right shoulder; Translations: [Bicipital tenosynovitis]63-39-1694VkjtdwodSirxu connective tissue disease (2 sources)Metatarsalgia of left foot; Translations: [Metatarsalgia, left foot] 91-91-8315MabmeqfjSnjtf connective tissue disease (2 sources)Synovitis and tenosynovitis; Translations: [Other synovitis and tenosynovitis, left ankle and foot]21-39-7888MarypthsNpnho ear and sense organ disorders (20 sources)Mixed conductive AND sensorineural hearing loss; Translations: [Mixed conductive and sensorineural hearing loss, unilateral, right ear with restricted hearing on the contralateral side]Onset: 385009-95-3975Yrgjhul Other fractures (1 source)Unspecified fracture of unspecified lumbar vertebra, initial encounter for closed fracture; Translations: [Unspecified fracture of unspecified lumbar vertebra, initial encounter for closed fracture]Onset: 61-61-9152ImsecilmLqngz fractures (1 source)Unspecified fracture of first lumbar vertebra, initial encounter for closed fracture; Translations:[Unspecified fracture of first lumbar vertebra, initial encounter for closed fracture]Onset: 37-53-2903HrxemqjxZxygl fractures (2 sources)Fracture of left rib; Translations: [Fracture of one rib, left side, initial encounter for closed fracture]43-71-5982BrxwauzsQptlvnj on above:Problem List clean-up per request of Phys. EHR CmteOther gastrointestinal disorders (1 source)Hemoperitoneum; Translations: [Hemoperitoneum]Onset: 02-03-2018 EpisodicOther gastrointestinal disorders (2 sources)Oropharyngeal dysphagia; Translations: [Dysphagia, oropharyngeal phase]EpisodicOther gastrointestinal disorders (2 sources)Pneumoperitoneum; Translations: [Other specified disorders of peritoneum]15-36-7001BiqetyupVonksrq on above:Problem List clean-up per request of Phys. EHR CmteOther lower respiratory disease (11 sources)Dyspnea; Translations: [Other respiratory abnormalities]Onset: 424499-59-4507NawayqmbQfxxm lower respiratory disease (4 sources)Dyspnea, unspecified; Translations: [Dyspnea, unspecified]Onset: 76-70-4355ZnrorlnyRjyoq nervous system disorders (20 sources)Peripheral nerve disease ; Translations: [Polyneuropathy, unspecified]Onset: 322651-29-9847PyqzbosTlcqg nervous system disorders (4 sources)Pain due to neoplastic disease; Translations: [Neoplasm related pain (acute) (chronic)]ChronicOther nervous system disorders (20 sources)Peripheral neuropathy due to and following chemotherapy; Translations: [Drug-induced polyneuropathy]Onset: hronic Other non-traumatic joint disorders (20 sources)Derangement of right shoulder joint; Translations: [Other specific joint derangements of right shoulder, not elsewhere classified]Onset: 09-17-2022 69-90-7141IgorbqtBcmey non-traumatic joint disorders (4 sources)Joint pain; Translations: [Pain in unspecified joint]05-24-2024 EpisodicOther nutritional; endocrine; and metabolic disorders (1 source)Overweight in adulthood with body mass index of 25 or more but less than 30; Translations: [Overweight]EpisodicOther nutritional; endocrine; and metabolic disorders (1 source)Abnormal weight loss; Translations: [Weight loss]Onset: 03-14-2025 EpisodicOther upper respiratory disease (20 sources)Allergic rhinitis due to pollen; Translations: [Allergic rhinitis due to pollen]Onset: 651880-52-8472MbfnqapTzslt upper respiratory infections (4 sources)Acute pharyngitis, unspecified; Translations: [ACUTE PHARYNGITIS UNSPECIFIED]Onset: 59-80-9681GgkgwthbOjvdmabocxr and intestinal abscess (1 source)Peritoneal abscess; Translations: [Peritoneal abscess]Onset: 82-30-9255RinrybcbYxtjegku codes; unclassified (7 sources)Body mass index 20-24 - normal; Translations: [Body Mass Index between 19-24, adult]EpisodicResidual codes; unclassified (4 sources)Other specified postprocedural states; Translations: [OTH SPECIFIED POSTPROCEDURAL STATES]Onset: 41-05-9727QmwzpwxkOdhfqwrn codes; unclassified (10 sources)History of arthroscopic procedure on shoulder; Translations: [Other specified postprocedural states]01-40-0611QwqyzvlfOdrcfkji codes; unclassified (3 sources)Pain; Translations: [Pain, unspecified]08-60-6903RxztisxnCurryshrjaw failure; insufficiency; arrest (adult) (20 sources)Chronic hypoxemic respiratory failure; Translations: [Chronic respiratory failure with hypoxia]Onset: 124259-26-2377HfuxxwlBcpqqeaaphg failure; insufficiency; arrest (adult) (6 sources)Acute respiratory failure; Translations: [Acute respiratory failure with hypoxia]Onset: 601331-41-1296QribgajzIvonsjewb and history of mental health and substance abuse codes (1 source)Ex-smoker; Translations: [Personal history of tobacco use]Episodic Comment on above:quit 05/22/22;Secondary malignancies (20 sources)Metastasis to head and neck lymph node; Translations: [Secondary and unspecified malignant neoplasmof lymph nodes of head, face and neck]Onset: 907306-92-1058HvlhnvlDvmtiyjbgvt; intervertebral disc disorders; other back problems (20 sources)Spondylosis without myelopathy or radiculopathy, lumbar region; Translations: [Thoracic spondylosis]Onset: 252461-33-4452Bcwyqlp Spondylosis; intervertebral disc disorders; other back problems (1 source)BackacheOnset: 21-64-1035MhhtmhjlArxqcrqob-related disorders (20 sources)Smoker; Translations: [Nicotine dependence, unspecified, uncomplicated]Onset: 587474-87-1601JuvydldMxyddll on above:1 pack of cigarettes every 4-5 days;Thyroid disorders (2 sources)Atrophy of thyroid - acquired; Translations: [Atrophy of thyroid (acquired)]Onset: 850944-53-6796NyxmsylmFgknsbwuo cerebral ischemia (15 sources)Transient cerebral ischemia; Translations: [Unspecified transient cerebral ischemia]Onset: 361799-43-6978AnzaginBolkgxgqx cerebral ischemia (1 source)Transient cerebral ischemiaOnset: 63-99-4582Yjwkrwlqohdf (1 source)Encounter for immunization / Z23(ICD-10)Onset: 92-38-5172Jjzvszxradra (1 source)Nicotine dependence, unspecified, uncomplicated / F17.200(ICD-10) Onset: 40-06-2040Omxbgrlqljfo (1 source)Trochanteric bursitis, right hip / M70.61(ICD-10)Onset: 04-06-2017 Unclassified (1 source)CONTACT W/AND (SUSP) EXPOS COVID-19; Translations: [CONTACT W/AND (SUSP) EXPOS COVID-19]Onset: 57-47-6164Kuqgteqturij (3 sources)LOW BACK PAIN, UNSPECIFIED; Translations: [LOW BACK PAIN, UNSPECIFIED]Onset: 94-26-0713Iezdowdmjwvf (1 source)lower and middle back painOnset: 40-18-2070Smmkh infection (1 source)Viral infection, unspecified; Translations: [VIRAL INFECTION UNSPECIFIED]Onset: 54-47-1321Egzeshbq Past or Other Problems Problem ClassificationProblemDateDocumented DateEpisodic/ChronicCancer of head and neck (10 sources)Personal history of malignant neoplasm of unspecified site of lip, oral cavity, and pharynx; Translations: [History of malignant neoplasm of head and/or neck]Onset: 09-02-2022 Resolved: 765683-75-8048ZhvuxduyDrscudd dysrhythmias (20 sources)Tachycardia; Translations: [Tachycardia, unspecified]Onset: 154155-88-0376WxwzgfmyCewhqhfx mellitus without complication (20 sources)Prediabetes; Translations: [Prediabetes]Onset: EpisodicDiseases of mouth; excluding dental (20 sources)Mass of tongue; Translations: [Other diseases of tongue]Onset: 09-17-2022 Resolved: 791972-74-0023YelordyjBwsg effects of cerebrovascular disease (9 sources)Sequela of cerebrovascular accident; Translations: [Unspecified sequelae of cerebral infarction]Onset: 01-09-2025 Resolved: 251922-05-4734ReykwmrArlilmt and fatigue (20 sources)Malaise and fatigue; Translations: [Other malaise]Onset: 08-09-2021 EpisodicMood disorders (20 sources)Mood disordersOnset: 11-27-2021 Resolved: Nausea and vomiting (20 sources)Nausea; Translations: [Nausea]Onset: 133765-29-3853Dthqdual Open wounds of extremities (2 sources)Impaired wound healing; Translations: [Unspecified open wound, left foot, initial encounter]Onset: 09-21-2019 Resolved: 877127-59-7059NctngozaCbnjg aftercare (20 sources)Long-term current use of drug therapy; Translations: [Other terminal system operator (current) drug therapy]Onset: 713938-85-4212WmcrnljbEnypb aftercare (6 sources)Patient encounter status; Translations: [Other group home (current) drug therapy]Onset: 704979-43-3464FrthfhmxOntcc and ill-defined cerebrovascular disease (8 sources)Intracranial aneurysm; Translations: [Cerebral aneurysm, nonruptured] Onset: 01-09-2025 Resolved: 400232-24-3049IpimukgPodrv and ill-defined heart disease (9 sources)Left ventricular hypertrophy; Translations: [Cardiomegaly]Onset: 01-09-2025 Resolved: 888663-45-6276FpmrsinGfybg bone disease and musculoskeletal deformities (1 source)Other specified disorders of bone, shoulder; Translations: [OTHER SPEC DISORDERS BONE SHOULDER]Onset: 19-11-6788CiyttthcZlviq circulatory disease (20 sources)History of transient ischemic attack; Translations: [Personal history of transient ischemic attack (TIA), and cerebral infarction without residual deficits]Onset: 734179-89-6857IvpzpxyeZhrdv connective tissue disease (20 sources)Pain in left foot; Translations: [Pain in left foot]Onset: 211632-71-3591BfpxdpfoJyini ear and sense organ disorders (20 sources)Tinnitus; Translations: [Tinnitus, unspecified ear]Onset: 09-17-2022 69-10-1878QttagkgmPjefm gastrointestinal disorders (20 sources)Dysphagia; Translations: [Dysphagia, unspecified]Onset: 06-25-2021 13-10-3161TpvjjkvsMlwyn injuries and conditions due to external causes (20 sources)Aspiration into respiratory tract; Translations: [Unspecified foreign body in respiratory tract, part unspecified causing other injury, initial encounter]Onset: 799999-00-4885GvhqztuxMhyul nervous system disorders (20 sources)Abnormal gait; Translations: [Unsteadiness on feet]Onset: 06-01-2024 97-75-7549TuveelhsMumcs non-traumatic joint disorders (4 sources)Pain in right shoulder; Translations: [PAIN IN RIGHT SHOULDER]Onset: 29-02-8797DuljzbcsTpakq nutritional; endocrine; and metabolic disorders (3 sources)Body mass index less than 20; Translations: [Body mass index (BMI) 19.9 or less, adult]Onset: 770905-25-2091OwxonuscZdgej nutritional; endocrine; and metabolic disorders (2 sources)Body mass index (BMI) 19.9 or less, adult; Translations: [Body mass index (BMI) 19.9 or less, adult]Onset: 54-73-7993ZcoyeoolQtlkz screening for suspected conditions (not mental disorders or infectious disease) (20 sources)Electrocardiogram abnormal; Translations: [Nonspecific abnormal electrocardiogram [ECG] [EKG]]Onset: 904530-33-3826KahtnppcFqmeh upper respiratory disease (20 sources)Other diseases of pharynx; Translations: [Unspecified disease of pharynx]Onset: 192179-67-6352NvklsutdAhego upper respiratory disease (20 sources)Mass of neck; Translations: [Other diseases of larynx]Onset: 09-17-2022 Resolved: 985846-71-6806ZqguaraqKoiguf media and related conditions (20 sources)Non-suppurative otitis media; Translations: [Unspecified nonsuppurative otitis media, unspecified ear]Onset: 09-17-2022 Resolved: 749789-78-0876CsyxpwjbWzffwcwxdx and visceral atherosclerosis (20 sources)Peripheral vascular disease; Translations: [Peripheral vascular disease, unspecified]Onset: 02-15-2021 Resolved: 900545-99-5743OvymyouGmmqxgz on above:Status post left lower extremity stenting;Pneumonia (except that caused by tuberculosis or sexually transmitted disease) (20 sources)Pneumonia; Translations: [Pneumonia, unspecified organism]Onset: 09-08-2024 Resolved: 753842-42-8503OxrxywsoGwovvmly codes; unclassified (20 sources)Insomnia; Translations: [Insomnia, unspecified]Onset: 06-25-2021 36-80-8098JiasaczoCqaivmre codes; unclassified (4 sources)Other general symptoms and signs; Translations: [OTHER GENERAL SYMPTOMS AND SIGNS]Onset: 86-30-7214UrphflwvHemzghrc codes; unclassified (2 sources)Finding of systemic arterial pressure; Translations: [Other general symptoms and signs]Onset: 234775-76-3153GewdvuniAxorvtij codes; unclassified (2 sources)Pain, unspecified; Translations: [Pain, unspecified]Onset: 06-10-2024 EpisodicUnclassified (1 source)LOW BACK PAIN, UNSPECIFIED; Translations: [LOW BACK PAIN, UNSPECIFIED] Onset: 90-68-8256Zcemqslxyddo (1 source)Onset: Results Test NameValueInterpretationReference RangeFacilityCT ABD/PEL WO IVCONon [id number] ABD/PEL WO IVCON* * *Final Report* * * DATE OF EXAM: Mar 14 2025 1:56PM [facility] 0531 - CT ABD/PEL WO IVCON / [...] intravenous contrast. The following findings are within this limitation. Abdomen [...] bowel dilation. Surgical leia are present near the cecum. Lymph [...] reported separately. Localizer images: No additional findings. IMPRESSION: 1. No definite evidence of metastatic [...] Mar 15 2025 8:05A Dictated by: MARCIE LOMEIL MD This examination was interpreted and the report reviewed and electronically signed by: MARCIE LOMELI MD on Mar 15 2025 8:14AM EST Thank you for allowing us to participate in the care of your patient. Should there be any questions regarding this interpretation, please call [phone]. If you are unable to reach us at the number above, please feel free to contact [facility] at [phone]. [id number] Medical [facility] CHEST WO IVCONon [id number] CHEST WO IVCON* * *Final Report* * * DATE OF EXAM: Mar 14 2025 1:56PM [facility] 0541 - CT CHEST WO IVCON / [...] reported separately. Localizer images: No additional findings. IMPRESSION: 1. There are new pulmonary nodules [...] be communicated with the ordering provider via [employer] staff message or phone message by [employer] within 2 business days of report finalization. --END OF FINDING-- Algorithms for management of incidental imaging findings can be found on the [facility] [employer]point site at: [email or web address] ngs%[email or web address] Transcribe Date/Time: Mar 15 2025 8:16A Dictated by: MARCIE LOMELI MD This examination was interpreted and the report reviewed and electronically signed by: MARCIE LOMEIL MD on Mar 15 2025 8:25AM EST Thank you for allowing us to participate in the care of your patient. Should there be any questions regarding this interpretation, please call [phone]. If you are unable to reach us at the number above, please feel free to contact [facility] at [phone]. [id number] ACTIONABLEInvalid Interpretation CodeSelect Medical Specialty Hospital [facility] NECK SOFT TISSUE WO IVCONon 40-70-4325MG NECK SOFT TISSUE WO IVCON* * *Final Report* * * DATE OF EXAM: Mar 14 2025 1:56PM [facility] 0509 - CT NECK SOFT TISSUE WO [...] mass lesion or infection. Advanced pulmonary emphysema. IMPRESSION: Stable treatment related findings with no [...] any questions regarding this interpretation, please call [phone]. If you are unable to reach us at the number above, please feel free to contact [facility] at [phone]. [id number]_[email or web address] County Medical Centeron 04-87-3450EOLS Telephone (RADTSA) ALEJO FLOYD ([id number]) 1960 M Date Time Provider Department 03/07/25 Kathrine CARPENTER During your visit today, we recorded the following information about you: Katrin Arias RN 03/07/2025 1:09 PM Signed Please sign new pet order for next week. Thank you! Katrin Arias RN Allergies As of Date: 03/07/2025 (No Known Allergies) Date Reviewed: 03/06/2025 Reviewed by: Aura Logan RD - Fully Assessed Reason for Visit: Orders [681] Primary Visit Diagnosis:Head and neck cancer (HCC) [C76.0] Other Visit Diagnosis:Weight loss [R63.4] Order(s):NM PET/CT SKULL-THIGH SUBSEQUENT [[id number]] Order #: [id number] FUTURE Prescriptions as of 03/07/2025 - clopidogrel (PLAVIX) 75 mg tablet Take [...] as needed. Problem List As Of Date 03/07/2025 Noted Resolved Severe protein-calorie malnutrition (HCC) [E43] [...] 09/16/2021 Encounter Status:Closed by KATRIN ARIAS on 03/07/25[facility] 16-10-1215EKGZWbfnjikpi (RADTSA) ALEJO FLOYD ([id number]) 1960 M Date Time Provider Department 02/23/25 Kathrine CARPENTER During your visit today, we recorded the following information about you: Azar Martino RN 02/23/2025 11:32 AM Signed Faxed received today from [facility] noting Alejo is currently taking atorvastatin. [...] Known Allergies) Date Reviewed: 02/21/2025 Reviewed by: Graves, Azar E, RN - Fully Assessed Reason for Visit: Medication [...] 09/16/2021 Encounter Status:Closed by KATRIN ARIAS on 02/23/25[facility] 05-29-1137TZFYMfeddc Visit (RADTSA) ALEJO FLOYD ([id number]) 1960 M Date Time Provider Department 02/21/25 4:00 PM Kathrine CARPENTER During your visit today, we recorded the following information about you: Temperature Pulse Respiration Blood pressure 97.4 degrees 107/minute 16/minute 115/78 Weight 49.5 kg Kathrine Carpenter MD 02/21/2025 4:37 PM Signed Radiation Oncology - Follow Up Note DIAGNOSIS: Squamous cell carcinoma oropharynx, 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 Anthony's HospitalBasophils/100 WBC Auto (Bld)Ordered By: Jacqueline Jj on 17-45-6844Ixeorkovu/100 WBC (Bld)0.7 %0.2-2.0[facility] CNPNon 53-25-8069XBTCHylpcojch (RADTSA) ALEJO FLOYD ([id number]) 1960 M Date Time Provider Department 02/15/25 Kathrine CARPENTER During your visit today, we recorded the following information about you: Azar Martino RN 02/15/2025 1:23 PM Signed PSS: Dr. Carpenter received a call from [facility] ER today and would like Alejo scheduled for a follow up here next week. Cris: Will you please print ER records from [facility]? Thanks SCOTT Bolton Trisha 02/15/2025 3:24 PM Signed I called and spoke to Alejo, he is scheduled next Thursday the 21 of February at 4:00 PM for a follow up with Marina Rivera 02/15/2025 4:14 PM Signed ER records from [...] 09/16/2021 Encounter Status:Closed by AZAR MARTINO on 02/15/25NoBarnesville HospitalEosinophils/100 WBC Auto (Bld)Ordered By: Jacqueline Jj on 02-15-2025 Eosinophils/100 WBC (Bld)1.2 %0.9-7.0[facility] Erythrocyte distribution width Auto (RBC) [Ratio]Ordered By: Jacqueline Jj on 84-19-5490Twcixebjtlu distribution width (RBC) [Ratio]14.0 %11.0-15.0[facility] CampusGlobulin Calc (S) [Mass/Vol]Ordered By: Jacqueline Jj on 00-69-9862Fyfrrtvt (S) [Mass/Vol]3.7 g/dLTrinity Health System West Campus Glomerular filtration rate (GFR) estimation in non- AmericanOrdered By: Jacqueline Jj on 33-66-5250UNU/1.73 sq M.predicted among non-blacks MDRD (S/P/Bld) [Vol rate/Area]mL/min/{1.73_m2}>=60 mL/min/1.73m [address] [place], [place] [address]Hematocrit Auto (Bld) [Volume fraction]Ordered By: Jacqueline Jj on 10-66-9401Xwnpfwdzrh (Bld) [Volume fraction]39.0 %Low42.0-54.0[facility] CampusHemoglobin [Mass/volume] in BloodOrdered By: Jacqueline Jj on 07-61-1137Rniovwszit (Bld) [Mass/Vol]13.3 g/dLLow14.0-18.0[facility] CampusLaboratory - Chemistry and Chemistry - challengeOrdered By: Jacqueline Jj on 32-92-4488Ngcvstv [Mass/Vol]3.8 g/dL3.4-5.0[facility] CampusALP [Catalytic activity/Vol]77 U/O17-427NbvgequijTrinity Health System West Campus ALT [Catalytic activity/Vol]24 U/X75-50QznnqdmtmTrinity Health System West CampusAST [Catalytic activity/Vol]21 U/F27-76XdperkseoTrinity Health System West CampusBilirubin [Mass/Vol]1.1 mg/dLHigh0.2-1.0[facility] CampusCalcium [Mass/Vol]9.1 mg/dL8.5-10.1FSt. Anthony's HospitalChloride [Moles/Vol] 104 mmol/Q03-025GyajpadudTrinity Health System West CampusCO2 [Moles/Vol]24.2 mmol/L 21.0-32.0[facility] CampusCreatinine [Mass/Vol]0.96 mg/dL 0.70-1.30[facility] CampusGFR/1.73 sq M.predicted MDRD (S/P/Bld) [Vol rate/Area]mL/min/{1.73_m2}>=60 mL/min/1.73m 2FSt. Anthony's HospitalGlucose [Mass/Vol]86 mg/cY05-107MihjgjzcfTrinity Health System West CampusLactate [Moles/Vol]1.1 mmol/L0.4-2.0[facility] CampusPotassium [Moles/Vol]3.1 mmol/LLow3.5-5.1FSt. Anthony's HospitalProtein [Mass/Vol]7.5 g/dL6.4-8.2FSamaritan North Health Centerodium [Moles/Vol]143 mmol/F097-028IwlxmtusaTrinity Health System West CampusUrea nitrogen [Mass/Vol]24.0 mg/dL High7.0-18.0[facility] CampusUrea nitrogen/Creatinine [Mass ratio]25.0 mg/mgTrinity Health System West CampusLaboratory - Hematology and Cell countsOrdered By: Jacqueline Jj on 12-12-3045Dnaredbp granulocytes/100 WBC (Bld)0.4 %0.0-0.5FSt. Anthony's HospitalLeukocytes [#/volume] corrected for nucleated erythrocytes in Blood by Automated counOrdered By: Jacqueline Jj on 02-87-3856WOY corrected for nucl RBC Auto (Bld) [#/Vol]7.5 10 3/uL4.0-11.0[facility] CampusLymphocytes Auto (Bld) [#/Vol] Ordered By: Jacqueline Jj on 10-25-4390Umuucnxefkz (Bld) [#/Vol]1.1 10 3/uLLow 1.2-3.8[facility] CampusLymphocytes/100 WBC Auto (Bld)Ordered By: Jacqueline Jj on 53-67-5371Ygjirfoscfu/100 WBC (Bld)14.1 %Low20.5-60.0 Doctors HospitalH Auto (RBC) [Entitic mass]Ordered By: Jacqueline Jj on 16-18-3133LHA (RBC) [Entitic mass]33.6 pg25.9-34.0[facility] CampusMCHC Auto (RBC) [Mass/Vol]Ordered By: Jacqueline Jj on 02-15-2025 MCHC (RBC) [Mass/Vol]34.1 g/dL29.9-35.2FSt. Anthony's HospitalMCV Auto (RBC) [Entitic vol]Ordered By: Jacqueline Jj on 83-06-8815KZK (RBC) [Entitic vol] 98.5 zKNguk94.0-94.0[facility] CampusMonocytes Auto (Bld) [#/Vol]Ordered By: Jacqueline Jj on 80-88-6953Nwevtfpqo (Bld) [#/Vol]0.6 10 3/uL 0.3-0.8[facility] CampusMonocytes/100 WBC Auto (Bld)Ordered By: Jacqueline Jj on 62-96-4846Wojfgcvrs/100 WBC (Bld)7.7 %1.7-12.0[facility] CampusNeutrophils Auto (Bld) [#/Vol]Ordered By: Jacqueline Jj on 75-08-4425Jwhflrfmlng (Bld) [#/Vol]5.7 10 3/uL1.4-6.5FSt. Anthony's HospitalNeutrophils/100 WBC Auto (Bld)Ordered By: Jacqueline Jj on 02-15-2025 Neutrophils/100 WBC (Bld)75.9 %High43.0-75.0[facility] CampusNo Panel InformationOrdered By: Jacqueline Jj on 10-86-9283Nctbktqe I High Sensitivity8.9 pg/mL4.0-76.1FSt. Anthony's HospitalComment on above: CUT-OFF POINTS HAVE BEEN ESTABLISHED BASED ON THE FOURTHUNIVERSAL DEFINITION OF MYOCARDIAL INFARCTION. THE UPPERREFERENCE LIMIT (URL) OF TROPONIN, DEFINED THE 99THPERCENTILE OF cTnI DISTRIBUTION IN A REFERENCE POPULATION,HAS BEEN CONFIRMED THE DECISION THRESHOLD FOR MIDIAGNOSIS.99TH PERCENTILE = 76.2 PG/MLNOTE: HIGH-SENSITIVITY TROPONIN ASSAY IS NOT INTENDED TO BEUSED IN ISOLATION BUT SHOULD BE INTERPRETED IN CONJUNCTIONWITH OTHER DIAGNOSTIC AND CLINICAL INFORMATION.Eosinophils # (Auto)0.1 10 3/uL0.0-0.7FSt. Anthony's HospitalImmature Granulocyte # (Auto)0.03 10 3/uL0.00-0.03[facility] CampusPlatelet mean volume Auto (Bld) [Entitic vol]Ordered By: Jacqueline Jj on 23-47-9652Eefpgijh mean volume (Bld) [Entitic vol]9.5 fL9.5-13.5 [facility] CampusPlatelets Auto (Bld) [#/Vol]Ordered By: Jacqueline Jj on 05-85-3927Dyumvrhwr (Bld) [#/Vol]304 10 3/cV301-776VqersoalwTrinity Health System West CampusRBC Auto (Bld) [#/Vol]Ordered By: Jacqueline Jj on 88-53-3052YIX (Bld) [#/Vol]3.96 10 6/uLLow4.70-6.10St. Anthony's Hospitalerum or plasma albumin/globulin mass ratioOrdered By: Jacqueline Jj on 02-15-2025 Albumin/Globulin [Mass ratio]1.0 {ratio}St. Anthony's Hospitalerum or plasma anion gap determinationOrdered By: Jacqueline Jj on 24-48-6406Aohcu gap [Moles/Vol]17.9 mmol/LFSt. Anthony's HospitalCCF TSH W/REFLEX FT4on 13-58-6534ZHK TSH SERPL-ACNC2.12NORI HealthcareSpecimen Type: BLOOD SPECIMEN Ordering Facility: [facility] Address: [address] [place] [address] [place] [address] Original Ordering Provider: Kathrine Jose Panel Informationon 10-55-4984FYYMMissouri Rehabilitation Center W/REFLEX FT4on 64-17-7371Kxanljzhpdonnl and review of laboratory resultsNormalCFirelands Regional Medical Center South Campus Qn2.120 m[IU]/[facility] CNOVon 83-01-3157KSGOKsuerc Visit (RADTSA) ALEJO FLOYD ([id number]) 1960 M Date Time Provider Department 12/20/24 1:15 PM Kathrine CARPENTER During your visit today, we recorded the following information about you: Temperature Pulse Respiration Blood pressure 98.9 degrees 83/minute 20/minute 151/70 Weight 60.5 kg Kathrine Carpenter MD 12/27/2024 10:45 AM Signed Radiation Oncology - Follow Up Note DIAGNOSIS: Squamous cell carcinoma oropharynx, 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, [id number] RADIATION SUMMARY: Course 1: DATES OF TREATMENT: [...] Bimanual exam without p (more content not included)...NormalNorwalk Memorial HospitalTS W/REFLEX FT4on 94-35-7255NIO Qn2.120 m[IU]/LNormal0.270-4.200Norwalk Memorial HospitalComment on above:Order Comment: Specimen Type: BLOOD SPECIMENOrdering Facility: [facility] Address:[address] [place], [place] [address]Performed By: #### TSHRF ####[facility] [id number] NICKI JOLLY [id number] [place] [address] [place] Office Visiton 10-39-6266Vemtwo-up [id number] Alejo Floyd 1960 M Date Provider Department Center 12/08/2024 21735-DNPMROSAURA SESAY HVCVASENDO DC HeartVAS No family history on file Level of Service:87751 [place] OFFICE/OUTPATIENT ESTABLISHED HIGH MDM 40 MIN Reason for Visit and Comments: Post-op [483] - Left neck painNormalUniversLima City HospitalOrders Onlyon 14-00-3910Mefcgl [id number] Alejo Floyd 1960 Provider Department Center 11/21/2024 Deven-GILDARDO JONES [facility] PREOP DC Medical C No family history on fileNoDayton Children's HospitalHPon 68-29-7912TRO&P reviewed. The patient was examined and there are no changes to the H&P.[facility] HospitalNURSNOTEon 10-81-2643JAQUXBEPBW educated pt on d/c instructions. This included: [...] wheeled off of unit with all of belongings.[facility] Memorial HospitalOrders Onlyon 48-41-7628Blfxhz [id number] Alejo Floyd 1960 M Date Provider Department Center 11/16/2024 38723-MWOJQNIRMAL PURI [facility] PAC DC Medical C No family history on critical access hospitalNormalUniSumma Health Akron Campus29on 85-05-199404Ovrhtrnj by: MARINA PRICE on: 11/17/2024 03:48 PM Modules accepted: OrdersNormalUniversLima City HospitalAPTTon 57-54-7612MEWEFUEMQ PARTIAL THROMBOPLASTIN TIME IN PPP BY COAGULATION ASSAY30.4 OzljmytEmrhqr50.0-35.0UnSycamore Medical CenterComment on above:Result Comment: Clinical significance of the APTT is questionable in the presence of heparin.Performed By: #### [id number] #### [facility] ([facility]) [address] [place] [address]LDIQG METABOLIC PANELon 38-45-4581Snxol gap [Moles/Vol]11 mmol/L Normal7-20UnSycamore Medical CenterComment on above:Performed By: #### [id number] #### [facility] ([facility]) [address] [place] [address]Euapiaz [Mass/Vol]9.4 mg/dLNormal8.6-10.3UnSycamore Medical CenterComment on above:Performed By: #### [id number] #### [facility] ([facility]) [address] [place] [address]Efjwzqly [Moles/Vol]97 mmol/PKdx08-902XgzdnnjvmmSycamore Medical CenterComment on above:Performed By: #### LAB15 #### [facility] ([facility]) [address] [place] [address]KE6 [Moles/Vol]29 mmol/UOnbdtp84-89AvtkufnxokSycamore Medical CenterComment on above:Performed By: #### LAB15 #### [facility] ([facility]) [address] [place] [address]Dekwjyxrdk [Mass/Vol]0.81 mg/dLNormal0.70-1.30UnSycamore Medical CenterComment on above:Performed By: #### LAB15 #### [facility] ([facility]) [address] [place] [address]BQWYJCXUCV FILTRATION RATE ML/MIN/1.73 SQ M.ROIZNRTNR06.5 mL/min/1.73m*2Normal>60.0UnSycamore Medical CenterComment on above: Result Comment: The [facility]???s estimated glomerular filtration rate (eGFR) will [...] group of individuals.Performed By: #### LAB15 #### [facility] ([facility]) [address] [place], [place] [address]Dntpnsh [Mass/Vol]91 mg/dHPfqyds89-943QdqbsnqpncSycamore Medical CenterComment on above:Performed By: #### [id number] #### [facility] ([facility]) [address] [place], [place] [address]Xdltjogad [Moles/Vol]4.3 mmol/LNormal3.5-5.1UnSycamore Medical CenterComment on above:Performed By: #### LAB15 #### [facility] ([facility]) [address] [place], [place] [address]Howjpp [Moles/Vol]133 mmol/ELic990-612UberuvqjplSycamore Medical CenterComment on above:Performed By: #### LAB15 #### [facility] ([facility]) [address] [place], [place] [address]Aybr nitrogen [Mass/Vol]16 mg/dLNormal7-25UnSycamore Medical CenterComment on above:Performed By: #### [id number] #### [facility] ([facility]) [address] [place], [place] [address]DVKL NITROGEN/CREATININE (MASS RATIO) IN SER/PLAS19.8Normal [facility] HospitalComment on above:Performed By: #### [id number] #### [facility] ([facility]) [address] [place], [place] [address]OXFqa 18-76-4148Ukmiphwjrwq distribution width (RBC) [Ratio]13.6 %Tnppgf81.5-15.0UnSycamore Medical CenterComment on above:Performed By: #### [id number] ####[facility] ([facility])[address] [place] [address] ERYTHROCYTE MEAN CORPUSCULAR HEMOGLOBIN CONCENTRATION (G/DL) BY SRTLFCBMV60.0 g/xSYrcnvb16.0-35.0UnSycamore Medical CenterComment on above:Performed By: #### [id number] ####[facility] ([facility])[address] [place] [address]Hfvsjbpjxc (Bld) [Volume fraction]40.6 %Hnysmp44.0-50.0UnSycamore Medical CenterComment on above:Performed By: #### [id number] ####[facility] ([facility])[address] [place] [address]Hxmwdlmrgy (Bld) [Mass/Vol]13.4 g/dL Iwcirm53.0-17.0UnSycamore Medical CenterComment on above:Performed By: #### [id number] ####[facility] ([facility])[address] [place] [address]GMO (RBC) [Entitic mass]33.3 luUzin68.0-33.0UnSycamore Medical Center Comment on above:Performed By: #### [id number] ####[facility] ([facility])[address] [place] [address]ACS (RBC) [Entitic vol]100.7 qPFltq66.0-98.0 [facility] HospitalComment on above:Performed By: #### [id number] ####[facility] ([facility] [place] [address]PLOXRDTQC (10*3/UL) IN BLOOD AUTOMATED WFASM329 10*3/wHZehhyp965-421DvovfnbjhzSycamore Medical CenterComment on above:Performed By: #### [id number] ####[facility] ([facility] [place] [address]URF (Bld) [#/Vol]4.03 10*6/uLLow 4.20-5.70UnMary Rutan Hospitalo Medical CenterComment on above:Performed By: #### [id number] ####[facility] ([facility])[address] [place] [address]NMC (Bld) [#/Vol]5.77 10*3/uLNormal4.00-10.60UnSycamore Medical CenterComment on above:Performed By: #### [id number] ####[facility] ([facility])[address] [place] [address]EJmn 81-95-2094NPDgb-Anesthesia Clinic Service Date: 11/15/24 Chief Complaint: Patient [...] shortness of breath at rest. ECHO at [facility] in July 2024 revealed EF 50-55%, no [...] reviewed, no acute findings. Patient follows with [facility]. Clearance request faxed to office per Dr. Mcfarland's office on 11/11/24. Preoperative labs remains outstanding, patient to complete today after visit. Subjective Allergies[1] Medication Documentation Review Audit Reviewed by Shere Pietraszak, RN (Registered Nurse) on 11/15/24 at 1420 Medication Order Taking? Sig Documenting Provider Last Dose Status albuterol 2.5 mg /3 mL (0.083 %) nebulizer solution [id number] Yes Take 2.5 mg by nebulization every 6 (six) hours if needed for wheezing. Aparna Andersen MD 11/15/2024 Active albuterol 90 mcg/actuation inhaler [id number] Yes Inhale 2 puffs every 6 (six) hours if needed for wheezing. Aparna Andersen MD 11/15/2024 Active aspirin 81 mg EC tablet [id number] Yes Take 81 mg by mouth in the morning. Aparna Andersen MD 11/15/2024 Active atorvastatin (Lipitor) 20 mg tablet [id number] Yes Take 20 mg by mouth in the morning. Aparna Andersen MD 11/15/2024 Active buPROPion XL (Wellbutrin XL) 150 mg 24 hr tablet [id number] Take 150 mg by mouth in the morning. Do not crush, chew, or split. Aparna ProviderMD Flag for Review clopidogrel (Plavix) 75 mg tablet [id number] Yes Take 75 mg by mouth in the morning. Aparna Andersen MD 11/15/2024 Active fluticasone furoate-vilanteroL (Breo Ellipta) 100-25 mcg/dose inhaler [id number] Yes Inhale 1 puff in the morning. Aparna Andersen MD 11/15/2024 Active megestrol (Megace) 400 mg/10 mL (40 mg/mL) suspension [id number] Yes Take 20 mL by mouth in the morning. Shake well just before you measure a dose. Measure with a special dose-measuring spoon or medicine cup, not with a regular table spoon. If you do not have a dose-measuring device, ask your pharmacist for one. Aparna Andersen MD 11/15/2024 Active metoprolol succinate XL (Toprol-XL) 25 mg 24 hr tablet [id number] Yes Take 50 mg by mouth in the morning. Do not crush or chew. Aparna Andersen MD 11/15/2024 Active omeprazole (PriLOSEC) [address] capsule [id number] Yes Take 40 mg by mouth before breakfast. Do not crush or chew. Aparna Andersen MD 11/15/2024 Active oxyCODONE-acetaminophen (Percocet) 10-325 mg tablet [id number] Yes Take 1 tablet by mouth every 6 (six) hours if needed for severe pain (8-10 pain score). Historical ProviderMD 11/15/2024 Active potassium chloride CR (Klor-Con M10) 10 mEq ER tablet [id number] Yes Take 10 mEq by mouth in the morning. Do not crush or chew. Historical Provider, 11/15/2024 Active topiramate (Topamax) 100 mg tablet [id number] Yes Take 100 mg by mouth two times daily. Historical Provider, 11/15/2024 Active Immunization History Administered Date(s) Administered Covid ([employer]) Bivalent Booster =>12 YRS 06/12/2022 Pfizer Covid-19 [...] Sexual activity: Not o (more content not included)...NormalUnSycamore Medical CenterLabon 80-94-1730Scw90237152 Alejo Floyd 1960 M Date Provider Department Center 11/15/2024 2244[facility] MP LAB RESOURCE MP DRAW Medical Pavi No family history on fileNormalUniversLima City HospitalMRSA/MSSA DNA NASALon 27-09-8086BOEX DNANegativeNormalNegativeUnSycamore Medical CenterComment on above:Order Comment: Testing methodology is an [...] does not preclude nasal colonization.Performed By: #### [id number] ####[facility] ([facility])[address] [place], [place] [address]ZVCS DNANegativeNormalNegative [facility] HospitalComment on above:Order Comment: Testing methodology is [...] does not preclude nasal colonization.Performed By: #### [id number] ####[facility] ([facility])[address] [place], [place] [address]YZVHPYG-JOVxv 63-46-0343TDQ IN PPP BY COAGULATION ASSAY1.34Aofx7.90-1.10UnSycamore Medical CenterComment on above:Result Comment: ACCCP RECOMMENDED INR FOR [...] OPTIMAL THERAPEUTIC RANGE. CHEST 1995;108:231S-246S.Performed By: #### [id number] #### [facility] ([facility]) [address] [place] [place], [place] [address]LFQTEQNWCMM TIME (PT) IN PPP BY COAGULATION ASSAY14.4 Seconds Oyoqpf16.3-14.8UnSycamore Medical CenterComment on above:Performed By: #### [id number] #### [facility] ([facility]) [address] [place], [place] [address]Zbv-Cpzieepes Testingon 49-28-6621Dny-Admission [id number] Alejo Floyd 1960 M Date Provider Department Center 11/15/202414013-DGG-DEGCMLKEBG CLINI*[facility] PAC DC Medical C No family history on fileNormalUniversity of Corpus Christi Medical Center Bay AreaFollow-Upon 39-16-2955Mwyaix-Uf06772651 Alejo Floyd 1960 M Date Provider Department Center 10/31/2024 503-VALE CHIRINOS HVCVASENDO DC HeartVAS No family history on file Level of Service:36367 [place] OFFICE/OUTPATIENT ESTABLISHED MOD MDM 30 MIN Reason for Visit and Comments: Follow-up [538022] - Left side neck has crampsNormalUniversgalion community hospital of Corpus Christi Medical Center Bay AreaHPon 31-00-4763TZDRSPUMHBOC OF VASCULAR SURGERY HPI Alejo Floyd is a 64 y.o. male who presents today for follow-up evaluation for carotid stenosis and PAD. With respect to carotid disease patient does report that in May and then again in July this past year he developed sudden onset left-sided leg weakness and was seen at [facility]. He reports he was diagnosed with a TIA both times. I obtained records from [facility] and appears he was diagnosed with a [...] CTA and MRI from July 2024 at [facility]. Patient has over 50-69% stenosis which has been consistent with 2 different ultrasounds with MRI evidence of subacute stroke on the right via MRI. Reviewed case with Dr. Mcfarland, at this time we will proceed with transfemoral carotid/cerebral angiogram with carotid stenting (with distal embolic protection). Given his hostile neck transfemoral approach most appropriate. Echo done at [facility] in July EF 50-55% no significant valvular disease His PAD is stable. He has known LLE moderate occlusive disease but is free of symptoms. Will continue medical management GDMT: DAPT, statin If recurrent left-sided symptoms occur patient advised to present to the ED immediately Electronically signed by: Vale Chirinos PA-C Physician Mine Engineering Manager Vascular and Wound Surgery 10/31/2024 This note was created with the assistance of a speech-recognition program. While intending to generate a document that accurately reflects the content of the encounter, no guarantee can be provided that every mistake has been identified and corrected by editing [1] No past medical his (more content not included)...NormalMercy Health Urbana HospitalCNOVon 36-64-3660FHGIUxoknx Visit (RADTSA) ALEJO FLOYD ([id number]) 1960 M Date Time Provider Department 06/21/24 1:30 PM Kathrine CARPENTER During your visit today, we recorded the following information about you: Temperature Pulse Respiration Blood pressure 97.9 degrees 95/minute 18/minute 110/58 Weight 59.4 kg Kathrine Carpenter MD 06/29/2024 12:44 PM Signed Radiation Oncology - Follow Up Note DIAGNOSIS: Squamous cell carcinoma oropharynx, 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 Lymph Node (more content not included)...NormalRegency Hospital Toledo 72-23-5160IBRFBcamql Visit (ORHSMN) ALEJO FLOYD ([id number]) 1960 M Date Time Provider Department 06/10/24 1:30 PM [facility] During your visit today, we recorded the following information about you: Weight Height 63.5 kg 1.778 m Hebert Miguel MD 06/10/2024 5:06 PM Signed SHOULDER/ELBOW INITIAL CONSULT SERVICE DATE: 06/09/2024 PCP: Gildardo Lacy MD REFERRING PROVIDER: EMILIE Spicer [address] [place] [address] Consult requested for an opinion regarding the evaluation and treatment of the above. My final impression and recommendations will be communicated back to the requesting physician by way of the shared medical record or letter via US mail. CHIEF COMPLAINT: Right shoulder pain SUBJECTIVE HISTORY OF PRESENT ILLNESS: 63 year old male, who presents for the above CC. Patient is a ottjc-gily-kyoougtm 63-year-old male with past medical history of [...] without relief. Has been taking Tylenol and kvac-nwk-quvttlf medications. Pain is improved when he is [...] solution 2.5 mg. albuterol (more content not included)...NormalNorwalk Memorial HospitalCT Shoulder - right WO contraston 06-10-2024* * [...] are maintained. IMPRESSION: No acute bony abnormality. Ticket Agent: EDGAR Transcribe Date/Time: Jun 10 2024 5:13P Dictated by : GERMAN VALDEZ MD This examination was interpreted and the report reviewed and electronically signed by: GERMAN VALDEZ MD on Jun 10 2024 5:13PM EST [id number]^[email or web address]^SI^ACNCCFRadiology, MD [place] - 06/10/2024 * * *Final Report* * [...] are maintained. IMPRESSION: No acute bony abnormality. Ticket Agent: [employer] Transcribe Date/Time: Jun 10 2024 5:13P Dictated by : GERMAN VALDEZ MD This examination was interpreted and the report reviewed and electronically signed by: GERMAN VALDEZ MD on Jun 10 2024 5:13PM EST [id number]^AGFA_IDC^SI^ACN [facility] HealthcareRadiology Study observation (narrative)Christian HospitalNo Panel InformationOrdered By: Radiologist Radiology on 91-01-7491BPIC [employer] Work Phone: XR SHLDR >/=3V AP/DEVON AP/OTHR RTon 81-42-4665WN SHLDR >/=3V AP/DEVON AP/OTHR RT* * *Final [...] are maintained. IMPRESSION: No acute bony abnormality. Ticket Agent: [employer] Transcribe Date/Time: Jun 10 2024 5:13P Dictated by : GERMAN VALDEZ MD This examination was interpreted and the report reviewed and electronically signed by: GERMAN VALDEZ MD on Jun 10 2024 5:13PM EST [id number] Memorial HospitalXR Shoulder - right 3 Viewson 71-73-1755XOMYWIPDQP: No acute bony abnormality. Ticket Agent: [facility] MANCHESTERJuan Luis Transcribe Date/Time: Jun 10 2024 5:13P [...] Joint spaces are maintained. DIVISION OF RADIOLOGYProvider, [facility] [place] - 06/10/2024 * * *Final Report* * [...] maintained. IMPRESSION IMPRESSION: No acute bony abnormality. Ticket Agent: [facility] Transcribe Date/Time: Jun 10 2024 5:13P Dictated by : GERMAN VALDEZ MD This examination was interpreted and the report reviewed and electronically signed by: GERMAN VALDEZ MD on Jun 10 2024 5:13PM EST [facility] HealthRadiology Study observation (narrative)[facility] Shoulder - right WO contraston 20-16-4423I[address] [address] Magnetic Resonance Report Signed Patient: ALEJO FLOYD MR#: [id number] : 1960 Acct:[id number] Age/Sex: 63 / M ADM Date: 05/20/24 Loc: MRI Attending Dr: Cassie PHAN Ordering Physician: Cassie Hood Date of Service: 05/20/24 Procedure(s): MR shoulder RT wo con Accession Number(s): [id number] cc: Cassie Hood; Gildardo Lacy M.D. [facility] [place] [id number] Patient Name: ALEJO FLOYD MRN: [id number] date: 1960 Sex: M Assigned Patient Location: MRI Current Patient Location: MRI Accession/Order Number: [id number] Exam Date: 05/20/2024 09:45 Report Date: 05/20/2024 [...] By: Papito Lucero M.D. Signed By: 05/20/24 150 DD/ 1459 TD/TT: Ticket Agent:TBHRadiology, Radiologist, - 05/20/2024 [place] [address] Magnetic Resonance Report Signed Patient: ALEJO FLOYD MR#: [id number] : 1960 Acct:[id number] Age/Sex: 63 / M ADM Date: 05/20/24 Loc: MRI Attending Dr: Cassie PHAN Ordering Physician: Cassie Hood Date of Service: 05/20/24 Procedure(s): MR shoulder RT wo con Accession Number(s): [id number] cc: Cassie Hood; Gildardo Lacy M.D. [facility] [place] [id number] Patient Name: ALEJO FLOYD MRN: [id number] date: 1960 Sex: M Assigned Patient Location: MRI Current Patient Location: MRI Accession/Order Number: [id number] Exam Date: 05/20/2024 09:45 Report Date: 05/20/2024 [...] By: Papito Lucero M.D. Signed By: 05/20/24 1507 DD/ 1459 TD/TT: Ticket Agent: SANJUANA HealthcareRadiology Study observation (narrative)[facility] Shoulder - right WO contrastOrdered By: Radiologist Radiology on 96-07-0201KZDC [employer] Work Phone: XR FOOT LT 2 VWSon [phone] [address] XRay Report Signed Patient: ALEJO FLOYD MR#: [id number] : 1960 Acct:[id number] Age/Sex: 63 / M ADM Date: 04/25/24 Loc: RAD Attending Dr: Gildardo Lacy M.D. Ordering Physician: Gildardo Lacy M.D. Date of Service: 04/25/24 Procedure(s): XR foot LT 2V Accession Number(s): [id number] cc: Gildardo Lacy M.D. [address] [address] Patient Name: ALEJO FLOYD MRN: [id number] date: 1960 Sex: M Assigned Patient Location: [facility] Current Patient Location: Accession/Order Number: [id number] Exam Date: 04/25/2024 12:15 Report Date: 04/28/2024 [...] are new compared 12/15/2019. Electronically authenticated by: BELLA PEREIRA Date: 04/28/2024 07:51 Dictated By: Bella Pereira M.D. Signed By: 04/28/24753 DD/ 0 TD/TT: Ticket Agent:TBHRadiology, Radiologist, MD - 04/28/2024 [place] [address] XRay Report Signed Patient: ALEJO FLOYD MR#: [id number] : 1960 Acct:[id number] Age/Sex: 63 / M ADM Date: 04/25/24 Loc: [facility] Attending Dr: Gildardo Lacy M.D. Ordering Physician: Gildardo Lacy M.D. Date of Service: 04/25/24 Procedure(s): XR foot LT 2V Accession Number(s): [id number] cc: Gildardo Lacy M.D. [facility] [place] [address] Patient Name: ALEJO FLOYD MRN: [id number] date: 1960 Sex: M Assigned Patient Location: [facility] Current Patient Location: Accession/Order Number: [id number] Exam Date: 04/25/2024 12:15 Report Date: 04/28/2024 [...] are new compared 12/15/2019. Electronically authenticated by: BELLA PEREIRA Date: 04/28/2024 07:51 Dictated By: Bella Pereira M.D. Signed By: 04/28/24753 DD/ 0 TD/TT: Ticket Agent: SANJUANA HealthcareRadiology Study observation (narrative)[facility] HealthcareXR FOOT LT 2 VWSOrdered By: Radiologist Radiology on 42-59-2970[facility] Work Phone: ecg 12-LEADon [phone] [address] Electrocardiograph Report Signed Patient: ALEJO FLOYD MR#: [id number] : 1960 Acct:[id number] Age/Sex: 63 / M ADM Date: 02/04/24 Loc: CARD Attending Dr: Cassie PHAN Ordering Physician: Cassie Hood Date of Service: 02/04/24 Procedure(s): ECG 12 lead Accession Number(s): [id number] cc: [facility] Test Date: 2024-02-04 Pat Name: ALEJO FLOYD Department: Room: - Gender: Male 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 Signed By: 02/04/24195002/04/241950 DD/ 1235 TD/TT: Ticket Agent: SANJUANA HealthcareRadiology Study observation (narrative)SANJUANA HealthcareECG 12-LEAD Ordered By: Radiologist Radiology on 94-85-1424[facility] Work Phone: mr Shoulder - right WO contraston 77-76-6479[place] [address] Magnetic Resonance Report Signed Patient: ALEJO FLOYD MR#: [id number] : 1960 Acct:[id number] Age/Sex: 63 / M ADM Date: 12/21/23 Loc: MRI Attending Dr: Martin Chen D.O. Ordering Physician: Martin Chen D.O. Date of Service: 12/21/23 Procedure(s): MR shoulder RT wo con Accession Number(s): [id number] cc: Gildardo Lacy M.D.; Martin Chen D.O. The [address] [address] Patient Name: ALEJO FLOYD MRN: [facility]:[id number] date: 1960 Sex: M Assigned Patient Location: MRI Current Patient Location: MRI Accession/Order Number: [id number] Exam Date: 12/21/2023 10:00 Report Date: 12/22/2023 13:28 At the request of: MARTIN CHEN Procedure: MR shoulder RT wo con EXAM: [...] the intertubercular groove. Electronically authenticated by: PAPITO LUCERO Date: 12/22/2023 13:28 Dictated By: Papito Lucero M.D. Signed By: 12/22/23 8186 DD/ 5282 TD/TT: Ticket Agent:TBHRadiology, Radiologist, - 12/22/2023 [facility] [place] [id number] Magnetic Resonance Report Signed Patient: ALEJO FLOYD MR#: [id number] : 1960 Acct:[id number] Age/Sex: 63 / M ADM Date: 12/21/23 Loc: MRI Attending Dr: Martin Chen D.O. Ordering Physician: Martin Chen D.O. Date of Service: 12/21/23 Procedure(s): MR shoulder RT wo con Accession Number(s): [id number] cc: Gildardo Lacy M.D.; Martin Chen D.O. The [place] [id number] Patient Name: ALEJO FLOYD MRN: [id number] date: 1960 Sex: M Assigned Patient Location: MRI Current Patient Location: MRI Accession/Order Number: [id number] Exam Date: 12/21/2023 10:00 Report Date: 12/22/2023 13:28 At the request of: MARTIN CHEN Procedure: MR shoulder RT wo con EXAM: [...] the intertubercular groove. Electronically authenticated by: PAPITO LUCERO Date: 12/22/2023 13:28 Dictated By: Papito Lucero M.D. Signed By: 12/22/23 1333 DD/ 1328 TD/TT: Ticket Agent: SANJUANA CaraballoRadiology Study observation (narrative)SANJUANA CaraballoMR Shoulder - right WO contrastOrdered By: Radiologist Radiology on 37-10-5389[facility] Work Phone: nm PET/CT SKULL-THIGH SUBQon 12-17-2023* * *Final Report* * * DATE OF [...] * Radiopharmaceutical Activity: 6.8 mCi * Radiopharmaceutical: A55-Hqrlzxstuvnismronx (FDG) * All reported standardized uptake values represent maximum SUV (SUVmax) per body weight, unless otherwise specified. COMPARISON: 02/11/2023 CORRELATION: CT neck and chest 09/10/2022 RESULT: REFERENCES: SUV reference values: * Blood pool (descending aorta) activity: SUVmax 2.1 * Background liver activity: SUVmax 2.7 Striper (topogram) images: No additional findings. Notes and [...] any questions regarding this interpretation, please call [phone]. If you are unable to reach us at the number above, please feel free to contact [facility] at [phone]. [id number]^AGFA_IDC^SI^ACNCCFRadiology, RadiologistMD - 12/17/2023 * * *Final Report* * [...] * Radiopharmaceutical Activity: 6.8 mCi * Radiopharmaceutical: I17-Cgbdjpknidayojhtgh (FDG) * All reported standardized uptake values represent maximum SUV (SUVmax) per body weight, unless otherwise specified. COMPARISON: 02/11/2023 CORRELATION: CT neck and chest 09/10/2022 RESULT: REFERENCES: SUV reference values: * Blood pool (descending aorta) activity: SUVmax 2.1 * Background liver activity: SUVmax 2.7 Striper (topogram) images: No additional findings. Notes and [...] any questions regarding this interpretation, please call [phone]. If you are unable to reach us at the number above, please feel free to contact [facility] at [phone]. [id number]^AGFA_IDC^SI^ACN NOMS HealthcareNo Panel InformationOrdered By: Ccf Provider on 12-17-2023 [facility] HealthPET+CT Guidance for localization of tumor of Skull base to mid-thigh-- W 18F-FDG Joanna 79-69-1367BENPKLBPXM: HEAD/NECK: * No FDG avid neoplastic process. [...] any questions regarding this interpretation, please call [phone]. If you are unable to reach us at the number above, please feel free to contact [facility] at [phone].DIVISION OF RADIOLOGY* * *Final Report* * * [...] * Radiopharmaceutical Activity: 6.8 mCi * Radiopharmaceutical: O08-Yncuwfgeaomomobfzr (FDG) * All reported standardized uptake values represent maximum SUV (SUVmax) per body weight, unless otherwise specified. COMPARISON: 02/11/2023 CORRELATION: CT neck and chest 09/10/2022 RESULT: REFERENCES: SUV reference values: * Blood pool (descending aorta) activity: SUVmax 2.1 * Background liver activity: SUVmax 2.7 Striper (topogram) images: No additional findings. Notes and [...] Tissues: No abnormal uptake. DIVISION OF RADIOLOGYProvider, [facility] [place] - 12/17/2023 * * *Final Report* * [...] * Radiopharmaceutical Activity: 6.8 mCi * Radiopharmaceutical: J81-Hvaahlybbntcpialjg (FDG) * All reported standardized uptake values represent maximum SUV (SUVmax) per body weight, unless otherwise specified. COMPARISON: 02/11/2023 CORRELATION: CT neck and chest 09/10/2022 RESULT: REFERENCES: SUV reference values: * Blood pool (descending aorta) activity: SUVmax 2.1 * Background liver activity: SUVmax 2.7 Striper (topogram) images: No additional findings. Notes and [...] any questions regarding this interpretation, please call [phone]. If you are unable to reach us at the number above, please feel free to contact [facility] eRadiology at [phone]. [facility] W Auto Differential panel (Bld)on 15-30-4807Swoeonijn (Bld) [#/Vol]0.04 10*3/uLNINFCleveland ClinicBasophils/100 WBC (Bld)0.6 %[facility] HealthDifferential cell count method Nom (Bld)AutoCleveland ClinicEosinophils (Bld) [#/Vol]NINFClevelatrium health anson ClinicEosinophils/100 WBC (Bld)0.3 %[facility] Erythrocyte distribution width (RBC) [Ratio]15.7 %High11.5 - 15.0 %[facility]ison HealthHematocrit (Bld) [Volume fraction]41.9 %39.0 - 51.0 %[facility] Hemoglobin (Bld) [Mass/Vol]13.9 g/dL13.0 - 17.0 g/dLMadison HealthImmature granulocytes (Bld) [#/Vol]NINFCleveland ClinicImmature granulocytes/100 WBC (Bld)0.3 %[facility] HealthInterpretation and review of laboratory results AbnormalMadison HealthLymphocytes (Bld) [#/Vol]1.15 10*3/uLMadison Health Lymphocytes/100 WBC (Bld)17.6 %[facility] SystemH (RBC) [Entitic mass]33.7 pg 26.0 - 34.0 pgClevelSt. Cloud HospitalHC (RBC) [Mass/Vol]33.2 g/dL30.5 - 36.0 g/dL [facility] SystemV (RBC) [Entitic vol]101.5 oGQvrk73.0 - 100.0 fLClevelatrium health anson ClinicMonocytes (Bld) [#/Vol]0.87 10*3/uLHighNINFCleMartin Memorial HospitalMonocytes/100 WBC (Bld)13.3 %[facility] HealthNeutrophils (Bld) [#/Vol]4.45 10*3/uLMadison HealthNeutrophils/100 WBC (Bld)67.9 %[facility] HealthNucleated RBC (Bld) [#/Vol] NINFCleveland ClinicNucleated RBC/100 WBC (Bld) [Ratio]0.0 %/100 WBCMadison HealthPlatelet mean volume (Bld) [Entitic vol]9.8 fL9.0 - 12.7 fLClevelatrium health anson ClinicPlatelets (Bld) [#/Vol]235 10*3/uLPortland ClinicRBC (Bld) [#/Vol]4.13 10*6/uLLow4.20 - 6.00 m/uLMadison HealthWBC (Bld) [#/Vol]6.55 10*3/uLKnox Community HospitalComprehensive metabolic 2000 panelOrdered By: Felisha Munoz on 11-25-8833Mpnhjsd [Mass/Vol]4.7 g/dL3.9 - 4.9 g/dLPortland ClinicALP [Catalytic activity/Vol]62 U/L38 - 113 U/LCleveland ClinicALT [Catalytic activity/Vol]7 U/LLow10 - 54 U/LCleveland ClinicAnion gap [Moles/Vol]9 mmol/L8 - 15 mmol/LCleveland ClinicAST [Catalytic activity/Vol]19 U/L14 - 40 U/LCleveland ClinicBilirubin [Mass/Vol]1.0 mg/dL0.2 - 1.3 mg/dLPortland ClinicCalcium [Mass/Vol]10.3 mg/dLHigh8.5 - 10.2 mg/dLPortland ClinicChloride [Moles/Vol]105 mmol/L98 - 107 mmol/LCleveland ClinicCO2 [Moles/Vol]24 mmol/L22 - 30 mmol/L [facility] HealthCreatinine [Mass/Vol]0.81 mg/dL0.73 - 1.22 mg/dLMadison Health GFR/1.73 sq M.predicted among non-blacks MDRD (S/P/Bld) [Vol rate/Area]99 mL/min/{1.73_m2}- PINRiverview Health InstituteComment on above:Estimated Glomerular Filtration Rate (eGFR) is calculated using the 2020 CKD-EPI creatinine equation. This equation utilizes serum creatinine, sex, and age as parameters. The creatinine assay has traceable calibration to isotope dilution-mass spectrometry. Refer to KDIGO guidelines for clinical interpretation. In patients with unstable renal function, e.g. those with acute kidney injury, the eGFRmay not accurately reflect actual GFR.Glucose [Mass/Vol]104 mg/dMEewy31 - 99 mg/dL [facility] HealthComment on above:The [place] Diabetes Association (ADA) provides guidance for cutoff [...] Standards of Medical Care in Diabetes 2016, [place] Diabetes Association. Diabetes Care. 2016.39(Suppl 1). Interpretation and review of laboratory resultsAbnormalClevelatrium health anson ClinicPotassium [Moles/Vol]4.4 mmol/L3.7 - 5.1 mmol/LClevelatrium health anson ClinicProtein [Mass/Vol]7.5 g/dL 6.3 - 8.0 g/dLPromedica Defiance Regional Hospitalveland ClinicSodium [Moles/Vol]138 mmol/L136 - 144 mmol/L [facility] HealthUrea nitrogen [Mass/Vol]13 mg/dL9 - 24 mg/dLNorwalk Memorial Hospital ClinicGLUCOSE, BLOOD (POC)on 16-59-0688Idpdfrn [Mass/Vol]111 mg/dL Monhsakn07 - 99 mg/dLMadison HealthComment on above:Location:[facility], [address] [place] [address] , [place], [place], [facility] The Accu-Chek Inform II glucose meter [...] above situations. Interpretation and review of laboratory resultsAbnormalCKettering Health PrebleNo Panel Informationon 44-37-4269Akebgmpkd Study observation (narrative) [facility] HealthTHYROID STIMULATING HORMONEon 08-54-2722HNE Qn4.700 m[IU]/LHigh [facility] Qnon 39-60-5667Pcnelapefnggyr and review of laboratory resultsAbnormalCtoledo hospitaland [facility] Mills HospitalECG 12 [place]on 78-66-0108IWK revealed normal sinus rhythm with [facility] Work Phone: Cholesterol [Mass/volume] in Serum or PlasmaOrdered By: Caremn Neely on 48-78-2218Vvbrksoynum [Mass/Vol]116 mg/jPJct662-713 [facility] CampusComment on above:Chol less than 200 mg/dl low riskChol 201-239 mg/dl borderline riskChol 240 mg/dl and greater high riskResult Comment: Chol less than 200 mg/dl low risk Chol 201-239 mg/dl borderline risk Chol 240 mg/dl and greater high riskPerformed By: #### LIPID #### [facility] [address] [place] [address] USACholesterol in LDL Calc [Mass/Vol]Ordered By: Carmen Neely on 71-22-0038Jprcqnuteyc in LDL [Mass/Vol]48 mg/dL0-100[facility] CampusComment on above:LDL ATP III CLASSIFICATIONLDL less than 100 mg/dL OptimalLDL 100-129 mg/dL Near or above nxkksloVNS295-316 mg/dL Borderline highLDL 160-189 mg/dL HighLDL greater than 189 mg/dL Very high Cholesterol in VLDL Calc [Mass/Vol]Ordered By: Carmen Neely on 09-08-2023 Cholesterol in VLDL [Mass/Vol]16 mg/dLTrinity Health System West CampusLipid Panelon 86-08-5864QSY Cholesterol,Lcryvssdbx38 mg/dLNormal0-100The [facility] City Physician GroupComment on above:Result Comment: LDL ATP III CLASSIFICATION LDL less than 100 mg/dL Optimal LDL 100-129 mg/dL Near or above optimal LDL 130-159 mg/dL Borderline high LDL 160-189 mg/dL High LDL greater than 189 mg/dL Very highPerformed By: #### LIPID #### [facility] [address] [place] [address] USATriglyceride w/Xfnosm84 mg/dLNormal0-149The [facility] Physician GroupComment on above:Result Comment: TRIG ATP III CLASSIFICATION TRIG less than 150 mg/dL Normal TRIG 150-199 mg/dL Borderline high TRIG 200-500 mg/dL High TRIG greater than 500 mg/dL Very high Standard traceable to the Center for Disease Conrtrol and Prevention (CDC) test method.Performed By: #### LIPID #### [place] [address] USAVLDL EHPWTSCTCTY09 mg/dLNoSelect Specialty Hospital - Winston-Salem Physician GroupComment on above:Performed By: #### LIPID #### [place] [address] USASerum or plasma high density lipoprotein (HDL) cholesterol measurementOrdered By: Carmen Neely on 50-84-3914Dqhadffyxna in HDL [Mass/Vol]51 mg/oFPaoene35-11DfkfsmkdtTrinity Health System West CampusComment on above: HDL CHOL ATP-III CLASSIFICATION Cardiovascular RiskHDL > or equal to 60 mg/dL LOWHDL < 40 mg/dL HIGHResult Comment: HDL CHOL ATP-III CLASSIFICATION Cardiovascular Risk HDL > or equal to 60 mg/dL LOW HDL < 40 mg/dL HIGHPerformed By: #### LIPID #### [place] [address] USASerum or plasma total cholesterol/high density lipoprotein (HDL) cholesterol mass ratOrdered By: Carmen Neely on 09-08-2023 Cholesterol.total/Cholesterol in HDL [Mass ratio]2.3 {ratio}Normal<5.0Tr[facility] Health System West CampusComment on above:Result Comment: PERFORMED BY: [place] [address] PATHOLOGIST ELECTRONICS DEPARTMENT MANAGER HECTOR MARTIN M.D.Performed By: #### LIPID #### [place] [address] USATriglyceride [Mass/volume] in Serum or PlasmaOrdered By: Carmen Neely on 27-28-8153Aimixpjvrdws [Mass/Vol]84 mg/dL0-149Tr[facility] System West CampusComment on above:TRIG ATP III CLASSIFICATIONTRIG less than 150 mg/dL NormalTRIG 150-199 mg/dL Borderline highTRIG 200-500 mg/dL High TRIG greater than 500 mg/dL Very highStandard traceable to the Center for Disease Conrtrol and Prevention (CDC) test method.THYROID STIMULATING HORMONEon 87-19-9054ARH Qn1.730 m[IU]/L0.270 - 4.200 mIU/LCleveland Bethesda HospitalBasic metabolic 2000 panelon 71-51-1216Tlfcs gap [Moles/Vol]10 mmol/L9 - 18 mmol/LCleveland ClinicCalcium [Mass/Vol]10.2 mg/dL8.5 - 10.2 mg/dLMadison HealthChloride [Moles/Vol]102 mmol/L97 - 105 mmol/LCleveland ClinicCO2 [Moles/Vol]25 mmol/L22 - 30 mmol/LCleveland ClinicCreatinine [Mass/Vol]1.20 mg/dL0.73 - 1.22 mg/dL [facility] HealthEstimated Glomerular Filtration Rate68 mL/min/1.73m>=60 mL/min/1.73mCleveland ClinicGlucose [Mass/Vol]101 mg/oOHnuo85 - 99 mg/dL [facility] HealthPotassium [Moles/Vol]3.7 mmol/L3.7 - 5.1 mmol/LC[facility] Clinic Sodium [Moles/Vol]137 mmol/L136 - 144 mmol/LCleveland ClinicUrea nitrogen [Mass/Vol]16 mg/dL9 - 24 mg/dLMadison HealthCB W Auto Differential panel (Bld)on 33-28-3385Fmoncrruh (Bld) [#/Vol]0.03 10*3/uL<0.11 k/uLMadison Health Basophils/100 WBC (Bld)0.4 %[facility] HealthDifferential cell count method Nom (Bld)AutoCleveland ClinicEosinophils (Bld) [#/Vol]0.03 10*3/uL<0.46 k/uL [facility] HealthEosinophils/100 WBC (Bld)0.4 %[facility] HealthErythrocyte distribution width (RBC) [Ratio]13.3 %11.5 - 15.0 %[facility] HealthHematocrit (Bld) [Volume fraction]43.2 %39.0 - 51.0 %[facility] HealthHemoglobin (Bld) [Mass/Vol]14.3 g/dL13.0 - 17.0 g/dLMadison HealthImmature granulocytes (Bld) [#/Vol]0.03 10*3/uL<0.10 k/uLPortland ClinicImmature granulocytes/100 WBC (Bld) 0.4 %[facility] HealthLymphocytes (Bld) [#/Vol]1.63 10*3/uL1.00 - 4.00 k/uL [facility] HealthLymphocytes/100 WBC (Bld)20.2 %[facility] SystemH (RBC) [Entitic mass]34.0 pg26.0 - 34.0 pgClevelSt. Cloud HospitalHC (RBC) [Mass/Vol]33.1 g/dL30.5 - 36.0 g/dLUniversity Hospitals Health SystemV (RBC) [Entitic vol]102.6 vAPaxj36.0 - 100.0 fLClevelatrium health anson ClinicMonocytes (Bld) [#/Vol]0.78 10*3/uL<0.87 k/uLPortland ClinicMonocytes/100 WBC (Bld)9.7 %[facility] HealthNeutrophils (Bld) [#/Vol]5.55 10*3/uL1.45 - 7.50 k/uLPortland ClinicNeutrophils/100 WBC (Bld)68.9 %[facility] HealthNucleated RBC (Bld) [#/Vol]<0.01 k/uLMadison HealthNucleated RBC/100 WBC (Bld) [Ratio]0.0 /100 WBCPortland ClinicPlatelet mean volume (Bld) [Entitic vol]9.4 fL9.0 - 12.7 fLCleveland ClinicPlatelets (Bld) [#/Vol]226 10*3/uL150 - 400 k/uLMadison HealthRBC (Bld) [#/Vol]4.21 10*6/uL4.20 - 6.00 m/[facility] ClinicWBC (Bld) [#/Vol]8.05 10*3/uL3.70 - 11.00 k/Keenan Private HospitalEGMENTAL BLOOD PRESSUREon 03-58-0539Q[address] [address] Cardiology Report Signed Patient: ALEJO FLOYD MR#: [id number] : 1960 Acct:[id number] Age/Sex: 62 / M ADM Date: 07/01/23 Loc: CARD Attending Dr: Gildardo Lacy M.D. Ordering Physician: Gildardo Lacy M.D. Date of Service: 07/01/23 Procedure(s): CA segmental UE or LE BEBA Accession Number(s): [id number] cc: Gildardo Lacy M.D. 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 PVR waveforms [...] Electronically Signed On 07-02-2023 23:23:24 EST by ELIZABETH GALINDO Dictated By: Elizabeth Galindo D.O. Signed By: 07/02/23232207/02/232322 DD/ 1444 TD/TT: Ticket Agent:TBHRadiology, Radiologist, MD - 07/02/2023 [place] [address] Cardiology Report Signed Patient: ALEJO FLOYD MR#: [id number] : 1960 Acct:[id number] Age/Sex: 62 / M ADM Date: 07/01/23 Loc: CARD Attending Dr: Gildardo Lacy M.D. Ordering Physician: Gildardo Lacy M.D. Date of Service: 07/01/23 Procedure(s): CA segmental UE or LE BEBA Accession Number(s): [id number] cc: Gildardo Lacy M.D. 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 PVR waveforms [...] Electronically Signed On 07-02-2023 23:23:24 EST by ELIZABETH GALINDO Dictated By: Elizabeth Galindo D.O. Signed By: 07/02/23232207/02/232322 DD/ 1444 TD/TT: Ticket Agent: SANJUAAN CaraballoSEGMENTAL BLOOD PRESSUREOrdered By: Radiologist Radiology on 29-22-0816JQKX [employer] Work Phone: SEGMENTAL BLOOD PRESSUREon 41-33-0558Lomfkrser Study observation (narrative)SANJUANA CaraballoUS.doppler Carotid arteries - bilateralon 08-63-1261B[address] [address] Ultrasound Report Signed Patient: ALEJO FLOYD MR#: [id number] : 1960 Acct:[id number] Age/Sex: 62 / M ADM Date: 07/01/23 Loc: CARD Attending Dr: Gildardo Lacy M.D. Ordering Physician: Gildardo Lacy M.D. Date of Service: 07/01/23 Procedure(s): US carotid duplex BI Accession Number(s): [id number] cc: Gildardo Lacy M.D. [address] [address] Patient Name: ALEJO FLOYD MRN: [id number] date: 1960 Sex: M Assigned Patient Location: CARD Current Patient Location: CARD Accession/Order Number: [id number] Exam Date: 07/01/2023 13:15 Report Date: 07/01/2023 [...] >70 >225 >4.0 Electronically authenticated by: ALBINA HERNANDEZ Date: 07/01/2023 14:16 Dictated By: Albina Hernandez M.D. Signed By: 07/01/23 1418 DD/ 1416 TD/TT: Ticket Agent:TBHRadiology, Radiologist, - 07/01/2023 [place] [address] Ultrasound Report Signed Patient: ALEJO FLOYD MR#: [id number] : 1960 Acct:[id number] Age/Sex: 62 / M ADM Date: 07/01/23 Loc: CARD Attending Dr: Gildardo Lacy M.D. Ordering Physician: Gildardo Lacy M.D. Date of Service: 07/01/23 Procedure(s): US carotid duplex BI Accession Number(s): [id number] cc: Gildardo Lacy M.D. [facility] [place] [id number] Patient Name: ALEJO FLOYD MRN: [id number] date: 1960 Sex: M Assigned Patient Location: CARD Current Patient Location: CARD Accession/Order Number: [id number] Exam Date: 07/01/2023 13:15 Report Date: 07/01/2023 [...] >70 >225 >4.0 Electronically authenticated by: ALBINA HERNANDEZ Date: 07/01/2023 14:16 Dictated By: Albina Hernandez M.D. Signed By: 07/01/23 1418 DD/ 15 TD/TT: Ticket Agent: [facility] HealthcareRadiology Study observation (narrative)Christian HospitalUS.doppler Carotid arteries - bilateralOrdered By: Radiologist Radiology on 01-60-2896DDTUChristian Hospital Work Phone: PEO+CT Guidance for localization of tumor of Skull base to mid-thigh-- W 18F-FDG Joanna 55-45-2745BNSRRDTVQG: 1. Neck: No new suspicious hypermetabolic foci [...] any questions regarding this interpretation, please call [phone]. If you are unable to reach us at the number above, please feel free to contact [facility] at [phone].DIVISION OF RADIOLOGY* * *Final Report* * * [...] SKELETON: There are no hypermetabolic osseous lesions. Striper (topogram) images:No additional findings. DIVISION OF RADIOLOGYProvimercy memorial hospital, [facility] [place] - 02/12/2023 * * *Final Report* * [...] SKELETON: There are no hypermetabolic osseous lesions. Striper (topogram) images:No additional findings. IMPRESSION IMPRESSION: 1. [...] any questions regarding this interpretation, please call [phone]. If you are unable to reach us at the number above, please feel free to contact [facility] e[facility]iology at [phone]. [facility] West HospitalCT Guidance for localization of tumor of Skull base to mid-thigh-- W 18F-FDG IVOrdered By: Ccf Provider on 46-70-6729Crrnuzafg [facility] GLUCOSE, BLOOD (POC)on 15-23-5908Uiifvsx [Mass/Vol]108 mg/kOVtvddyqf39 - 99 mg/dLMadison HealthComment on above:Location:[facility], [address] [place] [address] , [place], [place], [facility] The Accu-Chek Inform II glucose meter [...] above situations. Interpretation and review of laboratory resultsAbnormalCtoledo hospitaland ClinicCleveland ClinicPET+CT Guidance for localization of tumor of Skull base to mid-thigh-- W 18F-FDG Joanna 68-10-0590Xnbhofuog Study observation (narrative)Mad[facility] HealthCT Chest W contrast Joanna 35-95-9549UANZOWSHVV: 1. Subcentimeter bilateral pulmonary nodules, stable from [...] any questions regarding this interpretation, please call [phone]. If you are unable to reach us at the number above, please feel free to contact [facility] e[facility]iology at [phone].DIVISION OF RADIOLOGY* * *Final Report* * * DATE OF EXAM: Sep 10 2022 8:42AM [facility] 0539 - CT CHEST W [...] fossa. Epigastric ventral abdominal wall hernia, stable. Striper (topogram) images: No additional findings. DIVISION OF RADIOLOGYProvider, [facility] [place] - 09/11/2022 * * *Final Report* * * DATE OF EXAM: Sep 10 2022 8:42AM [facility] 0539 - CT CHEST W [...] fossa. Epigastric ventral abdominal wall hernia, stable. Striper (topogram) images: No additional findings. IMPRESSION IMPRESSION: [...] any questions regarding this interpretation, please call [phone]. If you are unable to reach us at the number above, please feel free to contact [facility] at [phone]. [facility] Neck WO contraston 09-10-2022* * *Final Report* * * DATE OF EXAM: Sep 10 2022 8:36AM [facility] 0509 - CT NECK SOFT TISSUE WO [...] any questions regarding this interpretation, please call [phone]. If you are unable to reach us at the number above, please feel free to contact [facility] at [phone].DIVISION OF RADIOLOGYProvider, [facility] [place] - 09/10/2022 * * *Final Report* * * DATE OF EXAM: Sep 10 2022 8:36AM [facility] 0509 - CT NECK SOFT TISSUE WO [...] any questions regarding this interpretation, please call [phone]. If you are unable to reach us at the number above, please feel free to contact [facility] at [phone]. [facility] Neck WO contrastOrdered By: Ccf Provider on 09-10-2022 Madison HealthNo Panel Informationon 89-80-1761Kgylnhpia Study observation (narrative)[facility] AUTO DIFFon 51-60-5432BSCD #0.0 103/ulNormal 0.0-0.1[place] Valley HospitalComment on above:Performed By: #### CBC #### [facility] [address] [place] [address] Dr. Herb JonesBasophils/100 WBC (Bld)0.4 %Normal0.2-2.0[facility] Comment on above:Performed By: #### CBC #### [facility] [address] [address] [address] Herb Cannon #0.2 103/ulNormal0.0-0.7The [facility]uder HospitalComment on above: Performed By: #### CBC #### [facility] [address] [address] [address] Herb Chewosinophils/100 WBC (Bld)1.6 %Normal0.9-7.0[facility] Comment on above:Performed By: #### CBC #### [facility] [address] [place] [address] Dr. Herb Chewrythrocyte distribution width (RBC) [Ratio]16.3 %Critically high 11.0-15.0The [facility]uder HospitalComment on above:Performed By: #### CBC #### [facility] [address] [place] [address] Dr. Herb JonesHematocrit (Bld) [Volume fraction]37.3 %Critically low42.0-54.0 The [facility]ton HospitalComment on above:Performed By: #### CBC #### [facility] [address] [place] [address] Dr. Herb JonesHemoglobin (Bld) [Mass/Vol]12.5 g/dLCritically low14.0-18.0The [facility] HospitalComment on above:Performed By: #### CBC #### [facility] [address] [place] [address] Dr. Herb Haley #0.03 10e3/ulNormal0.00-0.03The [facility] HospitalComment on above:Performed By: #### CBC #### [facility] [address] [place] [address] Dr. Herb Haley %0.3 %Normal0.0-0.5The [facility] HospitalComment on above: Performed By: #### CBC #### [facility] [address] [place] [address] Dr. Herb MannH #1.0 103/ulCritically low1.2-3.8The [facility] Comment on above:Performed By: #### CBC #### [facility] [address] [place] [address] Dr. Herb Pughmphocytes/100 WBC (Bld)9.6 %Critically low20.5-60.0[facility] HospitalComment on above:Performed By: #### CBC #### [facility] [address] [place] [address] Dr. Herb BoudreauxUAL DIFF REQNONormalThe [facility]uder HospitalComment on above: Performed By: #### CBC #### [facility] [address] [place] [address] Dr. Herb Joshi (RBC) [Entitic mass]31.9 vhFeixfu51.9-34.0The [facility] HospitalComment on above:Performed By: #### CBC #### [facility] [address] [address] [address] Herb Joshi (RBC) [Mass/Vol]33.5 g/aCYshfjp09.9-35.2The [facility] HospitalComment on above:Performed By: #### CBC #### [facility] [address] [address] [address] Herb JoshiV (RBC) [Entitic vol]95.2 fLCritically high80.0-94.0The [facility] HospitalComment on above:Performed By: #### CBC #### [facility] [address] [place] [address] Dr. Herb Wong #1.1 103/ulCritically high0.3-0.8ThG[facility]igh [facility] Comment on above:Performed By: #### CBC #### [facility] [address] [address] [address] Herb Kruseocytes/100 WBC (Bld)10.6 %Normal1.7-12.0[facility] Comment on above:Performed By: #### CBC #### [facility] [address] [address] [address] Herb Donis #8.0 103/ulCritically high1.4-6.5The [facility] Comment on above:Performed By: #### CBC #### [facility] [address] [address] [address] Herb Medellinutrophils/100 WBC (Bld)77.5 %Critically high43.0-75.0The [facility] HospitalComment on above:Performed By: #### CBC #### [facility] [address] [address] [address] Herb Celayalet mean volume (Bld) [Entitic vol]8.8 fLCritically low 9.5-13.5The [facility] HospitalComment on above:Performed By: #### CBC #### [facility] [address] [address] [address] Herb JonesPLT326 103/vmVvaixy853-746Bhr [facility] HospitalComment on above: Performed By: #### CBC #### [facility] [id number] Herb JonesRBC3.92 106/ulCritically low4.70-6.10The [facility] HospitalCommunson healthcare [facility] on above:Performed By: #### CBC #### [facility] [address] [address] [address] Herb JonesWBC10.3 103/ulNormal4.0-11.0The [facility] on above:Performed By: #### CBC #### [facility] [address] [address] [address] Herb Madrigal-19 PCR (CVDTBH)on 80-20-8483NFKA-CoV-2 (COVID-19) RNA BLANCA+probe Ql (Unsp spec)Not detectedNormalNOT DETECTEDThe [facility] Comment on above:Result Comment: This test is not yet approved or cleared by the [place] FDA. When there are no FDA-approved or cleared tests available, and other criteria are met, FDA can make tests available under an emergency access mechanism called an Emergency Use Authorization (EUA). The EUA for this test is supported by the [employer] of Health and Human Service's (HHS's) declaration [...] symptoms consistent with SARS-CoV-2.Performed By: #### CVDTBH ####[facility] [address] [address]Dr. Herb JonesGROUP A STREP CULTUREon 08-30-2022S. pyogenes Ag Ql (Unsp spec)Culture Observations: NEGATIVE FOR GROUP A STREPTOCOCCUS.NormalThe [facility]uder HospitalComment on above: Performed By: #### SSCRN, GRASTCX ####[facility] [address] [address]Dr. Herb JonesINFLUENZA A AND B AGon 08-30-2022 INFLUANEGHSEE BELOWProMedica Flower HospitalComment on above:Result Comment: Negative for Flu A protein angiten. Infection due to Flu A cannot be ruled out. FluA angiten in the sample may be below the detection limit of the test. Performed By: #### INFLUAB ####[facility] [address] [place], [place] [address]Dr. Herb JonesINFLUBNEGHSEE White HospitalComment on above:Result Comment: Negative for Flu B protein antigen. Infection due to Flu B cannot be ruled out. FluB antigen in the sample may be below the detection limit of the test.Performed By: #### INFLUAB ####[facility] [address] [place], [place] [address]Dr. Herb Jones INFLUENZA A AGNegativeNormalNEGATIVE SEE COMMENTThe [facility] HospitalCommunson healthcare [facility] on above:Performed By: #### INFLUAB ####[facility] [address] [place], [place] [address]Dr. Herb JonesINFLUENZA B AGNegativeNormalNEGATIVE SEE COMMENTThe [facility] HospitalComment on above:Performed By: #### INFLUAB ####[facility] [address] [address]Dr. Herb JonesPROF 14(COMP METB)on 43-41-7977Rtiphlc [Mass/Vol]3.2 g/dLCritically low3.4-5.0The [facility] HospitalComment on above:Performed By: #### CMP #### [facility] [address] [address] [address] Herb JonesAlbumin/Globulin [Mass ratio]0.8 {ratio}NormalThe [facility]uder HospitalComment on above:Performed By: #### CMP #### [facility] [address] [address] [address] Herb Lord [Catalytic activity/Vol]148 U/LCritically rygl45-133Qko [facility] HospitalComment on above:Performed By: #### CMP #### [facility] [address] [address] [address] Herb HuttonT [Catalytic activity/Vol]23 U/PPtetvd23-51Hob [facility] HospitalComment on above:Performed By: #### CMP #### [facility] [address] [address] [address] Herb Lubin gap [Moles/Vol]13.9 mmol/LNormalThe [facility] Comment on above:Performed By: #### CMP #### [facility] [address] [address] [address] Herb JonesAST [Catalytic activity/Vol]22 U/VGpinue10-20Ibx [facility] HospitalComment on above:Performed By: #### CMP #### [facility] [address] [address] [address] Herb JonesBilirubin [Mass/Vol]0.6 mg/dLNormal0.2-1.0[facility] Comment on above:Performed By: #### CMP #### [facility] [address] [address] [address] Herb JonesCalcium [Mass/Vol]9.0 mg/dLNormal8.5-10.1The [facility] Comment on above:Performed By: #### CMP #### [facility] [address] [address] [address] Herb JonesChloride [Moles/Vol]101 mmol/KZzcxdl71-016Zot [facility] Comment on above:Performed By: #### CMP #### [facility] [address] [address] [address] Herb JonesCO2 [Moles/Vol]21.9 mmol/NIvxvnp02.0-32.0The [facility] Comment on above:Performed By: #### CMP #### [facility] [address] [address] [address] Herb JonesCreatinine [Mass/Vol]0.97 mg/dLNormal0.70-1.30The [facility] HospitalComment on above:Performed By: #### CMP #### [facility] [address] [address] [address] Herb ChewGFR-AF GERMAN>60Normal>=60The [facility] HospitalComment on above:Performed By: #### CMP #### [facility] [address] [address] [address] Herb ChewGFR-NON AF GERMAN>60Normal>=60The [facility] HospitalComment on above:Performed By: #### CMP #### [facility] [address] [place] [address] Dr. Herb JonesGlobulin (S) [Mass/Vol]4.2 g/dLNormalThe [facility] HospitalComment on above:Performed By: #### CMP #### [facility] [address] [place] [address] Dr. Herb JonesGlucose [Mass/Vol]102 mg/mMPqzcbp49-657JuwMi[facility] Comment on above:Performed By: #### CMP #### [facility] [address] [place] [address] Dr. Herb JonesPotassium [Moles/Vol]3.8 mmol/LNormal3.5-5.1The [facility] Comment on above:Performed By: #### CMP #### [facility] [address] [place] [address] Dr. Herb JonesProtein [Mass/Vol]7.4 g/dLNormal6.4-8.2[facility] Comment on above:Performed By: #### CMP #### [facility] [address] [place] [address] Dr. Herb JonesSodium [Moles/Vol]133 mmol/LCritically hmp720-341Xav [facility] HospitalComment on above:Performed By: #### CMP #### [facility] [address] [address] [address] Herb JonesUrea nitrogen [Mass/Vol]12.0 mg/dLNormal7.0-18.0The [facility] HospitalComment on above:Performed By: #### CMP #### [facility] [address] [address] [address] Herb JonesUrea nitrogen/Creatinine [Mass ratio]12.4 mg/mgNoTriHealth McCullough-Hyde Memorial HospitalComment on above:Performed By: #### CMP #### [facility] [address] [address] [address] Herb JonesSTREPT SCREENon 13-40-6195QWXTO SCREEN ANegativeNormalNEGATIVEThe [facility] HospitalComment on above:Performed By: #### SSCRN, GRASTCX ####[facility] [address] [address]Dr. Herb Jones SYMPTOMATIC COVID-19 ANTIGENon 39-86-9241SOZ StatementSEE BELOWProMedica Flower HospitalComment on above:Result Comment: This test has not [...] authorization is revoked sooner.Performed By: #### CVDAGS ####[facility] [address] [address]Dr. Herb JonesSARS-CoV-2 (COVID-19) RNA BLANCA+probe Ql (Unsp spec)NegativeNormalNEGATIVEMiami Valley HospitalComment on above:Performed By: #### CVDAGS ####[facility] [address] [address]Dr. Yilan ChangXR CHEST 1 Von 42-22-7025UN CHEST 1 VEXAM: XR CHEST 1 V HISTORY: COUGH COMPARISON: 05/27/2021 TECHNIQUE: Chest X-ray AP, 1 view FINDINGS: Support devices: None. Lungs/pleura: No consolidation, effusion, or pneumothorax. Heart and mediastinum: Normal contours. Bones: No acute abnormality identified. Impression: No consolidation. However, pneumonia can be radiographically occult in the early stage. Electronically authenticated by: EMILY MUNROE Date: 2022-08-30 16:36ProMedica Flower HospitalLIPID PROFILEon 47-52-7944NBVK-HDL RATIO NORMSEE White HospitalCommunson healthcare [facility] on above:Result Comment: 3.3 - 4.4 LOW RISK 4.4 - 7.1 AVERAGE RISK 7.1 - 11.0 MODERATE RISK >11.0 HIGH RISKPerformed By: #### LIPID, ALT, AST ####[facility] [address] [address]Dr. Herb ChangCholesterol [Mass/Vol]111 mg/dLNormal<=200[facility] HospitalCommun[facility] healthcare [facility] on above:Performed By: #### LIPID, ALT, AST ####[facility] [address] [address]Dr. Herb Jones Cholesterol in HDL [Mass/Vol]46 mg/oIWfbsns94-04NhsMiami Valley HospitalCommunson healthcare [facility] hospital on above:Performed By: #### LIPID, ALT, AST ####[facility] [address] [address]Dr. Lizetlan ChangCholesterol in LDL [Mass/Vol] 56.4 mg/dLProMedica Flower HospitalCommunson healthcare [facility] hospital on above:Performed By: #### LIPID, ALT, AST ####[facility] [address] [address]Dr. Yilan ChangCholesterol.total/Cholesterol in HDL [Mass ratio]2.4 {ratio} NormalMount St. Mary [facility] on above:Performed By: #### LIPID, ALT, AST ####[facility] [address] [address]Dr. Herb JonesHDL NORMAL> or = 60 mg/dl - LOW CARDIOVASCULAR RISK <40 mg/dl - HIGH CARDIOVASCULAR RISKProMedica Flower HospitalComment on above:Performed By: #### LIPID, ALT, AST ####[facility] [address] [address]Dr. Herb ChangLDL CALC NORMALSEE BELOWNoTriHealth McCullough-Hyde Memorial HospitalComment on above:Result Comment: <100 mg/dl OPTIMAL 100 - 129 mg/dl NEAR OR ABOVE OPTIMAL 130 - 159 mg/dl BORDERLINE HIGH 160 - 189 mg/dl HIGH >190 mg/dl VERY HIGHPerformed By: #### LIPID, ALT, AST ####[facility] [address] [address]DrVinod JonesTriglyceride [Mass/Vol]43 mg/dLNormal<=150The [facility] HospitalComment on above:Performed By: #### LIPID, ALT, AST ####[facility] [address] [address]Dr. Herb JonesVLDL CALC8.6 mg/dLNoTriHealth McCullough-Hyde Memorial HospitalComment on above:Performed By: #### LIPID, ALT, AST ####[facility] [address] [address]Dr. Herb Edmondson on 80-59-2485QCE [Catalytic activity/Vol]18 U/RSgldau27-17Ywx[facility] Comment on above:Performed By: #### LIPID, ALT, AST #### [facility] [address] [address] [address] Herb Celis 13-90-1857AMG [Catalytic activity/Vol]20 U/UYvjrjt11-37YvvMiami Valley HospitalComment on above:Performed By: #### LIPID, ALT, AST #### [facility] [address] [address] [address] Herb Palma Visit (Cardiology)on 99-77-5155Nzwngo-up visit Diagnoses/Problems Assessed Mixed hyperlipidemia (272.2) (E78.2) PVD (peripheral vascular disease) (443.9) (I73.9) Status post left lower extremity stenting TIA (transient ischemic attack) (435.9) (G45.9) Former smoker (V15.82) (Z87.891) quit 05/22/22 Overweight with body mass index (BMI) of 25 to 25.9 in adult (278.02,V85.21) (E66.3,Z68.25) Orders Abnormal EKG IO EKG Electrocardiogram- 12 Lead; Status:Complete; Done: 84Aih0412 Mixed hyperlipidemia Start: Atorvastatin Calcium 20 MG Oral Tablet; TAKE 1 TABLET AT BEDTIME ALT - Alanine Aminotransferase, Serum; Status:Active - Retrospective Authorization; Requested for:33Bre8459; AST; Status:Active - Retrospective Authorization; Requested for:81Xjo2870; Lipid Panel; Status:Active - Retrospective Authorization; Requested for:94Ody8570; PVD (peripheral vascular disease) Renew: Aspirin 81 MG Oral Tablet Delayed Release; TAKE 1 TABLET DAILY SocHx: Former smoker Tobacco Use Screening; Status:Complete; Done: 09Glh9220 SocHx: Former smoker, Overweight with body mass index (BMI) of 25 to 25.9 in adult Healthy Weight Tips; Status:Complete - Retrospective Authorization; Done: 51Icy4988 Some eating tips that can help you lose weight.; Status:Complete - Retrospective Authorization; Done: 62Wup2498 Unlinked Stop: Amiodarone HCl - 200 MG [...] of your visit. obtain PVR test from [facility] Follow up in 6 months Chief [...] had PVR study several months ago at [facility] which I requested. His cardiac and [...] Omeprazole (more content not included)...NormalUH TouchworksTobacco Screening.on 99-72-9078Flvtkdw use status CPHSb) NoMP-[facility] [employer] 250 DO Work Phone: Tobacco Screening.YesMP-Northfield City HospitalCloudMedx 250 DO Work Phone: CBC W Auto Differential panel (Bld)on 05-20-2022 Basophils (Bld) [#/Vol]0.07 10*3/uL<0.11 k/uLMadison HealthBasophils/100 WBC (Bld)1.1 %Madison HealthDifferential cell count method Nom (Bld)AutoCleveland ClinicEosinophils (Bld) [#/Vol]0.08 10*3/uL<0.46 k/uLMadison Health Eosinophils/100 WBC (Bld)1.3 %Madison HealthErythrocyte distribution width (RBC) [Ratio]14.5 %11.5 - 15.0 %Madison HealthHematocrit (Bld) [Volume fraction]43.8 %39.0 - 51.0 %Madison HealthHemoglobin (Bld) [Mass/Vol]14.1 g/dL 13.0 - 17.0 g/dLMadison HealthImmature granulocytes (Bld) [#/Vol]0.05 10*3/uL <0.10 k/uLMadison HealthImmature granulocytes/100 WBC (Bld)0.8 %Madison HealthLymphocytes (Bld) [#/Vol]1.33 10*3/uL1.00 - 4.00 k/uLMadison Health Lymphocytes/100 WBC (Bld)21.8 %[facility] SystemH (RBC) [Entitic mass]31.9 pg 26.0 - 34.0 pgClevelSt. Cloud HospitalHC (RBC) [Mass/Vol]32.2 g/dL30.5 - 36.0 g/dL [facility] HealthMCV (RBC) [Entitic vol]99.1 fL80.0 - 100.0 fLCleveland Clinic Monocytes (Bld) [#/Vol]0.72 10*3/uL<0.87 k/uLMadison HealthMonocytes/100 WBC (Bld)11.8 %[facility]ison HealthNeutrophils (Bld) [#/Vol]3.86 10*3/uL1.45 - 7.50 k/uL Madison HealthNeutrophils/100 WBC (Bld)63.2 %[facility] HealthNucleated RBC (Bld) [#/Vol]<0.01 k/uLMadison HealthNucleated RBC/100 WBC (Bld) [Ratio]0.0 /100 WBCMadison HealthPlatelet mean volume (Bld) [Entitic vol]9.3 fL9.0 - 12.7 fLCVan Wert County HospitalPlatelets (Bld) [#/Vol]281 10*3/uL150 - 400 k/uLMadison HealthRBC (Bld) [#/Vol]4.42 10*6/uL4.20 - 6.00 m/uLMadison HealthWBC (Bld) [#/Vol]6.11 10*3/uL3.70 - 11.00 k/uLMadison HealthComprehensive metabolic 2000 panelon 34-49-4424Zslvkrs [Mass/Vol]4.6 g/dL3.9 - 4.9 g/dLPortland ClinicALP [Catalytic activity/Vol]119 U/LHigh38 - 113 U/LCleveland ClinicALT [Catalytic activity/Vol]15 U/L10 - 54 U/LCleveland ClinicAnion gap [Moles/Vol]11 mmol/L9 - 18 mmol/LCleveland ClinicAST [Catalytic activity/Vol]21 U/L14 - 40 U/LCleveland ClinicBilirubin [Mass/Vol]0.5 mg/dL0.2 - 1.3 mg/dLPortland ClinicCalcium [Mass/Vol]9.8 mg/dL8.5 - 10.2 mg/dLPortland ClinicChloride [Moles/Vol]102 mmol/L97 - 105 mmol/LCleveland ClinicCO2 [Moles/Vol]23 mmol/L22 - 30 mmol/L Madison HealthCreatinine [Mass/Vol]1.16 mg/dL0.73 - 1.22 mg/dLMadison Health Estimated Glomerular Filtration Rate72 mL/min/1.73m>=60 mL/min/1.73mCadena health system ClinicGlucose [Mass/Vol]106 mg/mZBusf94 - 99 mg/dLMadison HealthPotassium [Moles/Vol]4.7 mmol/L3.7 - 5.1 mmol/LCleveland ClinicProtein [Mass/Vol]7.4 g/dL 6.3 - 8.0 g/dLPortland ClinicSodium [Moles/Vol]136 mmol/L136 - 144 mmol/L Madison HealthUrea nitrogen [Mass/Vol]18 mg/dL9 - 24 mg/dLMadison HealthCT Chest W contrast Joanna 25-93-2332PFQDBZLCPI: 1. 3 mm right upper lobe nodule [...] any questions regarding this interpretation, please call [phone]. If you are unable to reach us at the number above, please feel free to contact [facility] eRadiology at [phone].DIVISION OF RADIOLOGY* * *Final Report* * * DATE OF EXAM: Apr 14 2022 11:45AM [facility] 0539 - CT CHEST W [...] clips within the gallbladder fossa are noted. Striper (topogram) images: No additional findings. DIVISION OF RADIOLOGYProvider, [facility] [place] - 04/15/2022 * * *Final Report* * * DATE OF EXAM: Apr 14 2022 11:45AM [facility] 0539 - CT CHEST W [...] clips within the gallbladder fossa are noted. Striper (topogram) images: No additional findings. IMPRESSION IMPRESSION: [...] any questions regarding this interpretation, please call [phone]. If you are unable to reach us at the number above, please feel free to contact [facility] eRadiology at [phone]. [facility] HospitalMRI SHOULDER RT WO CONon 71-10-8746ATJ SHOULDER RT WO CONEXAMINATION: MRI SHOULDER RT [...] Electronically authenticated by: BELLA PEREIRA Date: 2022-04-15 16:08ProMedica Flower HospitalCREATININE BLDOrdered By: Corby Zaman on 37-92-7044Zkvptbqhcg [Mass/Vol]1.16 mg/dL0.73 - 1.22 mg/dLMadison HealthGFR/1.73 sq M.predicted among non-blacks MDRD (S/P/Bld) [Vol rate/Area]72 mL/min/{1.73_m2}- PINF Madison HealthComment on above:Estimated Glomerular Filtration Rate (eGFR) is [...] GFR. Interpretation and review of laboratory resultsNormalCleveland Mercy Health [facility] Mills HospitalCT Neck W contrast Joanna 91-93-2128LVZANWRQHJ: Treatment related changes in the right oropharynx. [...] any questions regarding this interpretation, please call [phone]. 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 Otherwise, bilateral parotid glands are unremarkable. Retort Engineer spaces appear normal. 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 Otherwise, bilateral parotid glands are unremarkable. Retort Engineer spaces appear normal. Infrahyoid Neck: Mucosal/mucosal edema [...] no hydrocephalus. Cervical spine (more content not included)...[facility]ern[facility] ClinicCT Neck W contrast IVOrdered By: Ccf Provider on 96-05-9963Sbyiumqgi ClinicNo Panel Informationon 55-52-5435Anidqwihc Study observation (narrative)Madison HealthEchocardiogram on 88-60-3855CghjpaunjfjjcdjvSgvrw [address], [address] [facility], [place] [address] TRANSTHORACIC ECHOCARDIOGRAM REPORT Patient Name: ALEJO FLOYD Reading Physician: [id number] Carmen Neely MD, [facility] Study Date: 01/13/2022 Referring [id number] CARMEN NEELY Physician: MRN/PID: [id number] PCP: Gildardo Lacy Accession/Order#: [id number] [facility] [place] Location: Date of : 1960 Fellow: Gender: M Nurse: Admit Date: Agency Trainer: Tamika Howard RDCS, RVT Height: 177.80 cm CC Report to: Weight: 74.39 kg Study Type: Echocardiogram BSA: 1.92 m2 Blood Pressure: 152 /80 mmHg Diagnosis/ICD: R94.31-Abnormal electrocardiogram [ECG] [EKG]; R06.00-Dyspnea, unspecified Indication: COPD, Tobacco Abuse, Peripheral Vascular Disease, Left Femoral Artery Stent, TIA, Depression Procedure/CPT: Echo Complete w Full Doppler-38904 Study Detail: The following Echo studies were [...] 0.8 m/s (0.6-0.9m/s) PV Max P.3 mmHg [id number] Carmen Neely MD, [facility] Electronically signed on 01/14/2022 at 5:13:15 PM Final NormalAspen Valley HospitalEchocardiographyPlease click on the link to view the study imagesNormalAllina Health [facility] [address] [place] Work Phone: Falls Screening (Age 18+)on 37-76-4184Lgvs risk assessmenta) No falls within the last yearAllina Health Faribault [facility] Center [address] [place] Work Phone: NOH CARDIAC STRESS/REST INJECTIONon 71-62-0371PIL CARDIAC STRESS/REST INJECTIONMRN: [id number] Patient Name: ALEJO FLOYD STUDY: MYOCARDIAL PERFUSION STRESS TEST WITH LEXISCAN Performing facility: [facility], [address] [place] [address], [address] Provider: Carmen Neely MD, [facility] PCP: Dr. Caren Lacy Supervising provider: Grisel Woods MD, [facility] INDICATION: Abnormal EKG; Dyspnea HISTORY: Gender: M; Age: 61 y/o ; Height: 177.8 cm; Weight: 74.1378952 kg. Abnormal EKG; SOB; COPD; PVD TIA Throat Cancer Currently smoking. COMPARISON: No comparison. ACCESSION NUMBER(S): [id number]; [id number]; [id number] ORDERING CLINICIAN: CARMEN NEELY TECHNIQUE: ONE DAY [...] study available for comparison. Electronically signed by: Orlin VALENTINPlatte Valley Medical CenterNo Panel Informationon 48-12-2109QaxklfJMSt. Gabriel Hospital 600 DO Work Phone: GLUCOSE, BLOOD (POC)on 73-96-6296Kfpurqx [Mass/Vol]102 mg/xDVkgwdfun45 - 99 mg/dLMadison HealthComment on above:Location:[facility], [address] [place] [address] , [place], [place], [facility] The Accu-Chek Inform II glucose meter [...] above situations. Interpretation and review of laboratory resultsAbnormalCKettering Health PreblePET+CT Guidance for localization of tumor of Skull base to mid-thigh-- W 18F-FDG Joanna [id number]: 1. NECK: * No definite FDG avid [...] any questions regarding this interpretation, please call [phone]. If you are unable to reach us at the number above, please feel free to contact [facility] at [phone].DIVISION OF RADIOLOGY* * *Final Report* * * [...] possibly secondary to muscle spasm or posture. Striper (topogram) images: No additional findings. DIVISION OF RADIOLOGYProvider, [facility] [place] - 12/23/2021 * * *Final Report* * [...] possibly secondary to muscle spasm or posture. Striper (topogram) images: No additional findings. IMPRESSION IMPRESSION: [...] any questions regarding this interpretation, please call [phone]. If you are unable to reach us at the number above, please feel free to contact [facility] at [phone]. [facility] Study observation (narrative)[facility]+CT Guidance for localization of tumor of Skull base to mid-thigh-- W 18F-FDG IV Ordered By: Ccf Provider on [id number] [facility] Screening (Age 18+) on 05-09-3432Wtpve depression screening assessmentYesMMulticare Health [facility]- [place] 250 DO Work Phone: Fall risk assessmentc) Not medically indicatedNorthwest [facility]-[place] 250 DO Work Phone: Tobacco use status CPHSa) YesNorthwest Rural Health Network [facility]- [place] 250 DO Work Phone: Falls Screening (Age 18+)YesNorthwest [facility]- [place] 250 DO Work Phone: Falls Screening (Age 18+)1-Several daysNorthwest Rural Health Network [facility]-[place] 250 DO Work Phone: Falls Screening (Age 18+)3-Nearly every dayNorthwest [facility] Health [facility]-[place] 250 DO Work Phone: Falls Screening (Age 18+)0-Not at allNorthwest Rural Health Network [facility]-[place] 250 DO Work Phone: Falls Screening (Age 18+)Somewhat DifficultNorthwest Rural Health Network [facility]-[place] 250 DO Work Phone: Office Visit (Cardiology)on 97-99-8633Fbrecj-up visit Diagnoses/Problems Assessed Dyspnea (786.09) (R06.00) Abnormal EKG (794.31) (R94.31) PVD (peripheral vascular disease) (443.9) (I73.9) TIA (transient ischemic attack) (435.9) (G45.9) Body mass index (BMI) of 23.0 to 23.9 in adult (V85.1) (Z68.23) Current smoker (305.1) (F17.200) 1 pack of cigarettes every 4-5 days Depression (311) (F32.A) Orders Abnormal EKG, Dyspnea Echocardiogram; Status:Hold For - Scheduling,Retrospective Authorization; Requested for:[id number]; NM Cardiac Stress/Rest Nuclear Med Order; Status:Hold For - Scheduling,Retrospective Authorization; Requested for:[id number]; Radiologist to Determine Optimal Study : Y [...] we can help. You may also call [phone] for free resources and assistance.; Status:Complete - Retrospective Authorization; Done: [id number] Tobacco Use Screening; Status:Complete; Done: [id number] Unlinked Stop: amLODIPine Besylate 5 MG Oral [...] records from Dr. Shyanne Najera MD from [facility] Follow up in 6 months IArlette LPN, am scribing for and in the presence of, Dr. Carmen Neely MD Chief Complaint ALEJO FLOYD is being seen for a consultation for SRE. 61-year-old -[place] who is in my office for the first time to establish relationship with cardiology. The patient has history of active tobacco abuse and PAD involving mostly the left femoral artery where he had stenting done several years ago in [place]. He has no previous cardiac catheterizations or [...] not included)...NormalUH Touchworks US ARTERY LEG BILon [id number] ARTERY LEG BILEXAMINATION: US ARTERY LEG BEBA [...] Electronically authenticated by: BELLA PEREIRA Date: 2021-11-26 07:46[facility] LSKING WO CONon [id number] KHANG WO CONEXAM: CT KHANG WO CON HISTORY: DORSALGIA, UNSPECIFIED COMPARISON: CT of [...] Electronically authenticated by: DARIEN HARP Date: 2021-11-20 10:19[facility] URINE PROFILEon [id number] Ql (U)NegativeNormal NEGATIVEMiami Valley HospitalComment on above:Performed By: #### ERUR #### [facility] [address] [address] [address] Herb Bryant (U)CLEARNormalCLEARMiami Valley HospitalComment on above: Performed By: #### ERUR #### [facility] [address] [address] [address] Herb Biswas (U)YELLOWNormalYELLOWMiami Valley HospitalComment on above: Performed By: #### ERUR #### [facility] [address] [place] [address] Dr. Herb Tee micrscopic examination will be performed if indicated. NormalMiami Valley HospitalCommunson healthcare [facility] on above:Performed By: #### ERUR #### [facility] [address] [place] [address] Dr. Herb JonesGlucose Ql (U)NegativeNormalNEGATIVEMiami Valley HospitalComment on above:Performed By: #### ERUR #### [facility] [address] [address] [address] Herb JonesHemoglobin Ql (U)NegativeNormalNEGATIVEMiami Valley Hospital on above:Performed By: #### ERUR #### [facility] [address] [place] [address] Dr. Herb JonesKetones Ql (U)NegativeNormalNEGATIVEMiami Valley HospitalComment on above:Performed By: #### ERUR #### [facility] [address] [place] [address] Dr. Herb JonesLEUKOCYTESNegativeNormalNEGATIVEMiami Valley HospitalCommunson healthcare [facility]le[facility] on above:Performed By: #### ERUR #### [facility] [address] [place] [address] Dr. Herb JonesNitrite Ql (U)NegativeNormalNEGATIVEMiami Valley HospitalComment on above:Performed By: #### ERUR #### [facility] [address] [address] [address] Herb JonespH (U)7.0 [pH]Normal5-9Mi[facility] Valley HospitalComment on above: Performed By: #### ERUR #### [facility] [address] [place] [address] Dr. Herb JonesSPEC GRAVITY1.244Wcbtfx6.005-<=1.025The [facility]uder HospitalComment on above:Performed By: #### ERUR #### [facility] [address] [place] [address] Dr. Herb Freeman PROTEINNegativeNormalNEGATIVE/ TRACEThe [facility] Comment on above:Performed By: #### ERUR #### [facility] [address] [place] [address] Dr. Herb Pal MICRO INDNOT INDICATEDNormalThe [facility]uder HospitalComment on above:Performed By: #### ERUR #### [facility] [address] [place] [address] Dr. Herb JonesUrobilinogen Qn (U)4 {Shon'U}/dLAbnormal0.2 - 1.0The [facility] HospitalComment on above:Performed By: #### ERUR #### [facility] [address] [place] [address] Dr. Herb Dean METABOLIC PANELon 80-18-3684Htmsokg [Mass/Vol]8.6 mg/dL Normal8.6-10.3The [facility] HospitalComment on above:Order Comment: No: Do not add to previous drawPerformed By: #### 44261, 71029, 49174 #### [facility] [address] [place] [address], USAChloride [Moles/Vol]108 mmol/CCdlm15-328Qgs [facility] HospitalComment on above:Order Comment: No: Do not add to previous drawPerformed By: #### 59407, 33541, 08330 #### [facility] [address] [place] [address], USACO2 [Moles/Vol]20 mmol/DWew20-33Qqf [facility] HospitalComment on above:Order Comment: No: Do not add to previous draw Performed By: #### 67835, 63989, 33987 #### [facility] [address] [place] [address], USACreatinine [Mass/Vol]0.83 mg/dLNormal0.70-1.30The [facility] HospitalComment on above:Order Comment: No: Do not add to previous drawPerformed By: #### 88000, 98466, 20148 #### [facility] [address] [place] [address], USAGFR/1.73 sq M.predicted among blacks MDRD (S/P/Bld) [Vol rate/Area]mL/min/{1.73_m2}Normal>60The [facility] Comment on above:Order Comment: No: Do not add to previous drawPerformed By: #### 68159, 23867, 01314 #### [facility] [address] [place] [address], USAGFR/1.73 sq M.predicted among non-blacks MDRD (S/P/Bld) [Vol rate/Area]mL/min/{1.73_m2}Normal>60The [facility] Comment on above:Order Comment: No: Do not add to previous drawPerformed By: #### 49734, 14672, 06658 #### [facility] [address] [place] [address], USAGlucose [Mass/Vol]71 mg/cQKrikoq62-508Ltr [facility] HospitalComment on above:Order Comment: No: Do not add to previous drawPerformed By: #### 96632, 48088, 35379 #### [facility] [address] [place] [address], USAPotassium [Moles/Vol]3.2 mmol/LLow3.5-5.1The [facility] HospitalComment on above:Order Comment: No: Do not add to previous drawPerformed By: #### 88574, 35284, 74856 #### [facility] [address] [place] [address], USASodium [Moles/Vol]140 mmol/BDulqfo137-149Ajc [facility] HospitalComment on above:Order Comment: No: Do not add to previous drawPerformed By: #### 09101, 53346, 90020 #### [facility] [address] [place] [address], USAUrea nitrogen [Mass/Vol]21 mg/dLNormal7-25The [facility] HospitalComment on above:Order Comment: No: Do not add to previous drawPerformed By: #### 41933, 18195, 63358 #### [facility] [address] [facility] [address], USACBC W/DIFFon 74-65-3844URU IMM GRANS0.0 10*3/uLNormal 0.0-0.2The [facility] HospitalComment on above:Order Comment: No: Do not add to previous drawPerformed By: #### 15871 #### [facility] [address] [facility] [place] [address], USAABS NEUTROPHILS2.3 10*3/uLNormal1.6-7.6The [facility] HospitalComment on above:Order Comment: No: Do not add to previous drawPerformed By: #### 77767 #### [facility] [address] [place] [address], USABasophils (Bld) [#/Vol]0.0 10*3/uLNormal0.0-0.2The [facility] HospitalComment on above:Order Comment: No: Do not add to previous drawPerformed By: #### 28076 #### [facility] [address] [place] [address], USABasophils/100 WBC (Bld)0.3 %Normal0.0-1.0The [facility] HospitalComment on above:Order Comment: No: Do not add to previous drawPerformed By: #### 18427 #### [facility] [address] [place] [address], USAEosinophils (Bld) [#/Vol]0.0 10*3/uLNormal0.0-0.5The [facility] HospitalComment on above:Order Comment: No: Do not add to previous drawPerformed By: #### 27986 #### [facility] [address] [place] [address], USAEosinophils/100 WBC (Bld)0.5 %Normal0.0-6.0The [facility] HospitalComment on above:Order Comment: No: Do not add to previous drawPerformed By: #### 61011 #### [facility] [address] [place] [address], USAErythrocyte distribution width (RBC) [Ratio]17.2 %High 11.5-15.0The [facility] HospitalComment on above:Order Comment: No: Do not add to previous drawPerformed By: #### 59024 #### [facility] [address] [place] [address], USAHematocrit (Bld) [Volume fraction]32.6 %Low39.0-50.0The [facility] HospitalComment on above:Order Comment: No: Do not add to previous drawPerformed By: #### 73070 #### [facility] [address] [place] [address], USAHemoglobin (Bld) [Mass/Vol]10.7 g/dLLow13.0-17.0The [facility] HospitalComment on above:Order Comment: No: Do not add to previous drawPerformed By: #### 34556 #### [facility] [address] [place] [address], USAIMMATURE GRANS0.3 %Normal0.0-1.0The [facility] HospitalComment on above:Order Comment: No: Do not add to previous draw Performed By: #### 21533 #### [facility] [address] [place] [address], USALymphocytes (Bld) [#/Vol]0.8 10*3/uLLow1.2-4.0The [facility] HospitalComment on above:Order Comment: No: Do not add to previous drawPerformed By: #### 02402 #### [facility] [address] [place] [address], [facility] HEALTH CENTERLymphocytes/100 WBC (Bld)21.9 %Npphcs16.0-45.0The [facility] HospitalComment on above:Order Comment: No: Do not add to previous drawPerformed By: #### 27698 #### [facility] [address] [place] [address], [facility] (RBC) [Entitic mass]33.9 omOrmp55.0-33.0The [facility] HospitalComment on above:Order Comment: No: Do not add to previous drawPerformed By: #### 02832 #### [facility] [address] [place] [address], [facility] (RBC) [Mass/Vol]32.8 g/kKDfiwdo78.0-35.0The [facility] HospitalComment on above:Order Comment: No: Do not add to previous drawPerformed By: #### 81918 #### [facility] [address] [facility] [place] [address], [facility] (RBC) [Entitic vol]103.2 sSAgns08.0-98.0The [facility] HospitalComment on above:Order Comment: No: Do not add to previous drawPerformed By: #### 08169 #### [facility] [address] [place] [address], USAMonocytes (Bld) [#/Vol]0.5 10*3/uLNormal0.1-1.0The [facility] HospitalComment on above:Order Comment: No: Do not add to previous drawPerformed By: #### 87647 #### [facility] [address] [place] [address], BBALWKSN22.9 %High5.0-12.0The [facility] HospitalComment on above:Order Comment: No: Do not add to previous drawPerformed By: #### 24214 #### [facility] [address] [place] [address], USANeutrophils/100 WBC (Bld)63.1 %Xbnjjd32.0-72.0The [facility] HospitalComment on above:Order Comment: No: Do not add to previous drawPerformed By: #### 35098 #### [facility] [address] [place] [address], USANucleated RBC/100 WBC (Bld) [Ratio]0 %Normal0-0The [facility] HospitalComment on above:Order Comment: No: Do not add to previous drawPerformed By: #### 06495 #### [facility] [address] [place] [address], USAPLAT ZND303 10*3/wYIybjri049-165Jeu [facility] HospitalComment on above:Order Comment: No: Do not add to previous draw Performed By: #### 76314 #### [facility] [address] [place] [address], USARBC (Bld) [#/Vol]3.16 10*6/uLLow4.20-5.70The [facility] HospitalComment on above:Order Comment: No: Do not add to previous drawPerformed By: #### 01567 #### [facility] [address] [place] [address], USAWBC (Bld) [#/Vol]3.66 10*3/uLLow4.00-10.60The [facility] HospitalComment on above:Order Comment: No: Do not add to previous drawPerformed By: #### 35927 #### [facility] [address] [place] [address], USAMAGNESIUM BLOODon 90-70-0131Bovntutsw [Mass/Vol]1.8 mg/dL Low1.9-2.7The [facility] HospitalComment on above:Order Comment: No: Do not add to previous drawPerformed By: #### 87661, 21831, 18179 #### [facility] [address] [facility] [place] [address], USAPHOSPHORUS BLOODon 60-18-1631Grvqeaewi [Mass/Vol]1.8 mg/dL Low2.5-5.0The [facility] HospitalComment on above:Order Comment: No: Do not add to previous drawPerformed By: #### 41566, 08598, 24394 #### [facility] [address] [place] [place] [address], USAAPTTon 87-97-0638mTQG Coag (Bld) [Time]25.3 sNormal 25.0-35.0The [facility] HospitalComment on above:Order Comment: No: Do not [...] BE USED FOR THIS PURPOSE.Performed By: #### 28058, 49374, 01307 #### [facility] [address] [place] [address], USABASIC METABOLIC PANELon 76-39-9121Fyzpzll [Mass/Vol]9.0 mg/dLNormal8.6-10.3The [facility] HospitalComment on above:Order Comment: No: Do not add to previous drawPerformed By: #### 68676, 36110, 01757 #### [facility] [address] [place] [address], USAChloride [Moles/Vol]104 mmol/IWqccxs83-897Kot [facility] HospitalComment on above:Order Comment: No: Do not add to previous drawPerformed By: #### 95741, 73762, 16535 #### [facility] [address] [place] [address], USACO2 [Moles/Vol]23 mmol/ADyblwj68-89Yha [facility] HospitalComment on above:Order Comment: No: Do not add to previous draw Performed By: #### 17199, 96714, 41631 #### [facility] [address] [place] [address], USACreatinine [Mass/Vol]1.29 mg/dLNormal0.70-1.30The [facility] HospitalComment on above:Order Comment: No: Do not add to previous drawPerformed By: #### 51655, 93113, 48965 #### [facility] [address] [place] [address], USAeGFR- non- Slgexmmy94 ml/min/1.73sq mAbnormal>60The [facility] HospitalComment on above:Order Comment: No: Do not add to previous drawPerformed By: #### 76061, 71537, 46598 #### [facility] [address] [place] [address], USAGFR/1.73 sq M.predicted among blacks MDRD (S/P/Bld) [Vol rate/Area]mL/min/{1.73_m2}Normal>60The [facility] Comment on above:Order Comment: No: Do not add to previous drawPerformed By: #### 96618, 12236, 37782 #### [facility] [address] [place] [address], USAGlucose [Mass/Vol]131 mg/aUEzew82-798Jsg [facility] HospitalComment on above:Order Comment: No: Do not add to previous drawPerformed By: #### 32222, 92769, 71460 #### [facility] [address] [facility] [place] [address], USAPotassium [Moles/Vol]3.1 mmol/LLow3.5-5.1The [facility] HospitalComment on above:Order Comment: No: Do not add to previous drawPerformed By: #### 32134, 43700, 00388 #### [facility] [address] [facility] [place] [address], USASodium [Moles/Vol]141 mmol/GWurlzu308-495Bls [facility] HospitalComment on above:Order Comment: No: Do not add to previous drawPerformed By: #### 70672, 22494, 53948 #### [facility] [address] [facility] [place] [address], USAUrea nitrogen [Mass/Vol]40 mg/dLHigh7-25The [facility] HospitalComment on above:Order Comment: No: Do not add to previous drawPerformed By: #### 58760, 05622, 02892 #### [facility] [address] [facility] [place] [address], [facility] HEALTH CENTERCBC W/DIFFon 95-31-0903THV IMM GRANS0.0 10*3/uLNormal 0.0-0.2The [facility] HospitalComment on above:Performed By: #### 74123, 83717, 56851 #### [facility] [address] [facility] [place] [address], USAABS NEUTROPHILS3.2 10*3/uLNormal1.6-7.6The [facility] HospitalComment on above:Performed By: #### 42072, 76255, 64351 #### [facility] [address] [facility] [place] [address], USABasophils (Bld) [#/Vol]0.0 10*3/uLNormal0.0-0.2The [facility] HospitalComment on above:Performed By: #### 80157, 55430, 64417 #### [facility] [address] [place] [address], USABasophils/100 WBC (Bld)0.5 %Normal0.0-1.0The [facility] HospitalComment on above:Performed By: #### 64611, 05152, 81356 #### [facility] [address] [facility] [place] [address], USAEosinophils (Bld) [#/Vol]0.0 10*3/uLNormal0.0-0.5The [facility] HospitalComment on above:Performed By: #### 37071, , 60281 #### [facility] [address] [facility] [place] [address], USAEosinophils/100 WBC (Bld)0.0 %Normal0.0-6.0The [facility] HospitalComment on above:Performed By: #### 75178, , 68768 #### [facility] [address] [facility] [place] [address], USAErythrocyte distribution width (RBC) [Ratio]17.3 %High 11.5-15.0The [facility] HospitalComment on above:Performed By: #### 86948, , 01514 #### [facility] [address] [facility] [place] [address], USAHematocrit (Bld) [Volume fraction]37.6 %Low39.0-50.0The [facility] HospitalComment on above:Performed By: #### 63651, , 10876 #### [facility] [address] [facility] [place] [address], USAHemoglobin (Bld) [Mass/Vol]12.7 g/dLLow13.0-17.0The [facility] HospitalComment on above:Performed By: #### 28254, 56319, 19154 #### [facility] [address] [facility] [place] [address], USAIMMATURE GRANS0.2 %Normal0.0-1.0The [facility] HospitalComment on above:Performed By: #### 02185, , 42960 #### [facility] [address] [facility] [place] [address], USALymphocytes (Bld) [#/Vol]0.6 10*3/uLLow1.2-4.0The [facility] HospitalComment on above:Performed By: #### 71129, , 17181 #### [facility] [address] [facility] [place] [address], USALymphocytes/100 WBC (Bld)13.1 %Low20.0-45.0The [facility] HospitalComment on above:Performed By: #### 19890, , 13706 #### [facility] [address] [facility] [place] [address], [facility] HEALTH CENTERMCH (RBC) [Entitic mass]34.0 toBkfz49.0-33.0The [facility] HospitalComment on above:Performed By: #### 73280, , 37588 #### [facility] [address] [facility] [place] [address], USAMCHC (RBC) [Mass/Vol]33.8 g/sVEjnxob21.0-35.0The [facility] HospitalComment on above:Performed By: #### 47150, , 83781 #### [facility] [address] [facility] [place] [address], USAMCV (RBC) [Entitic vol]100.5 bYIhrl94.0-98.0The [facility] HospitalComment on above:Performed By: #### 96618, 83819, 85884 #### [facility] [address] [place] [address], USAMonocytes (Bld) [#/Vol]0.5 10*3/uLNormal0.1-1.0The [facility] HospitalComment on above:Performed By: #### 93892, 50227, 01749 #### [facility] [address] [place] [address], HVTZBISV25.4 %Normal5.0-12.0The [facility] HospitalCommunson healthcare [facility] on above:Performed By: #### 73246, 29615, 55232 #### [facility] [address] [place] [address], USANeutrophils/100 WBC (Bld)74.8 %High40.0-72.0The [facility] HospitalComment on above:Performed By: #### 03339, 14997, 51568 #### [facility] [address] [place] [address], USANucleated RBC/100 WBC (Bld) [Ratio]0 %Normal0-0The [facility] HospitalCommunson healthcare [facility] on above:Performed By: #### 07887, 50319, 61083 #### [facility] [address] [place] [address], USAPLAT JWN893 10*3/nIYvopzn190-998Tpd [facility] HospitalComment on above:Performed By: #### 14405, 37606, 56000 #### [facility] [address] [place] [address], USARBC (Bld) [#/Vol]3.74 10*6/uLLow4.20-5.70The [facility] HospitalComment on above:Performed By: #### [id number], [id number], [id number] #### [facility] [address] [place] [address], USAWBC (Bld) [#/Vol]4.28 10*3/uLNormal4.00-10.60The [facility] HospitalComment on above:Performed By: #### [id number], [id number], [id number] #### [facility] [address] [place] [address], USALACTATE WITH REFLEXon 09-52-1207Neiktqe [Moles/Vol]1.2 mmol/LNormal.5-2.2The [facility] HospitalComment on above:Order Comment: No: Do not add to previous drawPerformed By: #### [id number] #### [facility] [facility] [address] [place] [address], USALIVER BATTERYon [id number] [Mass/Vol]4.0 g/dLNormal 3.5-5.7The [facility] HospitalComment on above:Order Comment: No: Do not add to previous drawPerformed By: #### 89381, 53512, 92526 #### [facility] [address] [place] [address], USAALKALINE RDEZTX35 IU/RAdjbnf56-802Tfe [facility] HospitalComment on above:Order Comment: No: Do not add to previous draw Performed By: #### 18234, 11831, 52405 #### [facility] [address] [place] [address], USAALT [Catalytic activity/Vol]15 U/LNormal7-52The [facility] HospitalComment on above:Order Comment: No: Do not add to previous drawPerformed By: #### 00014, 25737, 23138 #### [facility] [address] [place] [address], USAAST [Catalytic activity/Vol]16 U/KDhqmjg27-60Gnx [facility] HospitalComment on above:Order Comment: No: Do not add to previous drawPerformed By: #### 42995, 27175, 61447 #### [facility] [address] [place] [address], USABilirubin [Mass/Vol]1.6 mg/dLHigh0.3-1.0The [facility] HospitalComment on above:Order Comment: No: Do not add to previous drawPerformed By: #### 61953, 89846, 48404 #### [facility] [address] [place] [address], USABilirubin.direct [Mass/Vol]0.5 mg/dLHigh0.0-0.2The [facility] HospitalComment on above:Order Comment: No: Do not add to previous drawPerformed By: #### 96906, 68018, 63322 #### [facility] [address] [place] [address], USAProtein [Mass/Vol]7.0 g/dLNormal6.0-8.3The [facility] HospitalComment on above:Order Comment: No: Do not add to previous drawPerformed By: #### 47146, 64160, 47076 #### [facility] [address] [place] [address], USAMAGNESIUM BLOODon 78-41-2798Hfeeeokaf [Mass/Vol]2.4 mg/dL Normal1.9-2.7The [facility] HospitalComment on above:Order Comment: No: Do not add to previous drawPerformed By: #### 56417 #### [facility] [address] [place] [address], USAMagnesium [Mass/Vol]1.9 mg/dLNormal1.9-2.7The [facility] HospitalComment on above:Order Comment: No: Do not add to previous drawPerformed By: #### 37253, 36876, 67274 #### [facility] [address] [place] [address], USAPHOSPHORUS BLOODon 65-47-0766Yhbrdkevv [Mass/Vol]2.8 mg/dL Normal2.5-5.0The [facility] HospitalComment on above:Order Comment: No: Do not add to previous drawPerformed By: #### 39282, 29377, 47694 #### [facility] [address] [place] [address], USAPROTHROMBIN TIMEon 02-70-6218PWR Coag (PPP) [Relative time] 1.16 {INR}Normal0.91-1.16The [facility] HospitalComment on above:Order Comment: No: Do not add to previous drawResult Comment: [facility] RECOMMENDED INR FOR WARFARIN THERAPY ------- CONDITION [...] OPTIMAL THERAPEUTIC RANGE. CHEST 1995;108:231S-246S.Performed By: #### 69802, , 97380 #### [facility] [address] [place] [address], USAPT Coag (PPP) [Time]14.7 pFnzaxy09.3-14.8The [facility] HospitalComment on above:Order Comment: No: Do not add to previous drawResult Comment: ALL RESULTS MUST BE INTERPRETED WITH RESPECT TO BLOOD DRAWING ARTIFACT OR DILUTION ERROR OF ANTICOAGULANT AT THE TIME OF SAMPLING.Performed By: #### 18164, , 83855 #### [facility] [address] [place] [address], [facility] Auto Differential panel (Bld)on [id number] Immature Gran0.04 k/uL<0.10 k/uLClechildren's hospital of columbus ClinicBasophils (Bld) [#/Vol]10*3/uL <0.11 k/uLClechildren's hospital of columbus ClinicBasophils/100 WBC (Bld)0.2 %[facility] Differential cell count method Nom (Bld)AutoCleveland ClinicEosinophils (Bld) [#/Vol]10*3/uL<0.46 k/uLCleMartin Memorial HospitalEosinophils/100 WBC (Bld)0.2 %[facility] HealthErythrocyte distribution width (RBC) [Ratio]18.2 %High11.5 - 15.0 % [facility] HealthHematocrit (Bld) [Volume fraction]40.7 %39.0 - 51.0 %[facility] HealthHemoglobin (Bld) [Mass/Vol]13.5 g/dL13.0 - 17.0 g/dLMadison Health Immature Gran %0.6 %[facility] HealthLymphocytes (Bld) [#/Vol]0.67 10*3/uLLow1.00 - 4.00 k/uLMadison HealthLymphocytes/100 WBC (Bld)10.9 %[facility] SystemH (RBC) [Entitic mass]33.8 pg26.0 - 34.0 pgCleveland Hutchinson Health HospitalHC (RBC) [Mass/Vol] 33.2 g/dL30.5 - 36.0 g/dLUniversity Hospitals Health SystemV (RBC) [Entitic vol]102.0 eYSkwm67.0 - 100.0 fLCleveland ClinicMonocytes (Bld) [#/Vol]0.38 10*3/uL<0.87 k/uLMadison HealthMonocytes/100 WBC (Bld)6.2 %[facility] HealthNeutrophils (Bld) [#/Vol]5.06 10*3/uL1.45 - 7.50 k/uLCleMartin Memorial HospitalNeutrophils/100 WBC (Bld)81.9 %[facility] HealthNucleated RBC (Bld) [#/Vol]10*3/uL<0.01 k/uLPortland ClinicNucleated RBC/100 WBC (Bld) [Ratio]0.0 /100 WBCPortland ClinicPlatelet mean volume (Bld) [Entitic vol]8.7 fLLow9.0 - 12.7 fLCleveland ClinicPlatelets (Bld) [#/Vol]268 10*3/uL150 - 400 k/uLMadison HealthRBC (Bld) [#/Vol]3.99 10*6/uLLow4.20 - 6.00 m/uLPortland ClinicWBC (Bld) [#/Vol]6.17 10*3/uL3.70 - 11.00 k/uLMadison HealthComprehensive metabolic 2000 panelon [id number] [Mass/Vol]5.1 g/dL High3.9 - 4.9 g/dLPortland ClinicALP [Catalytic activity/Vol]104 U/L38 - 113 U/LCleveland ClinicALT [Catalytic activity/Vol]17 U/L10 - 54 U/LCleveland [facility] Anion gap [Moles/Vol]17 mmol/L9 - 18 mmol/LCleveland ClinicAST [Catalytic activity/Vol]Madison HealthBilirubin [Mass/Vol]1.3 mg/dL0.2 - 1.3 mg/dL [facility] HealthCalcium [Mass/Vol]10.6 mg/dLHigh8.5 - 10.2 mg/dLMadison Health Chloride [Moles/Vol]99 mmol/L97 - 105 mmol/LCleveland ClinicCO2 [Moles/Vol]20 mmol/LLow22 - 30 mmol/LCleveland [facility]hesda HospitalCreatinine [Mass/Vol]1.91 mg/dLHigh0.73 - 1.22 mg/dLMadison HealthEstimated Glomerular Filtration Rate40 mL/min/1.73m Low>=60 mL/min/1.73mCleveland Bethesda HospitalGlucose [Mass/Vol]162 mg/zLBcsu40 - 99 mg/dL [facility] HealthPotassium [Moles/Vol]4.5 mmol/L3.7 - 5.1 mmol/LCleveland [facility] Protein [Mass/Vol]8.4 g/dLHigh6.3 - 8.0 g/dLPeoples Hospitalodium [Moles/Vol] 136 mmol/L136 - 144 mmol/LCleveland ClinicUrea nitrogen [Mass/Vol]35 mg/dLHigh9 - 24 mg/dLMadison HealthCB W Auto Differential panel (Bld)on [id number] Immature Gran0.08 k/uL<0.10 k/uLPortland ClinicBasophils (Bld) [#/Vol]10*3/uL <0.11 k/uLMadison HealthBasophils/100 WBC (Bld)0.2 %[facility] Differential cell count method Nom (Bld)AutoCleveland ClinicEosinophils (Bld) [#/Vol]0.05 10*3/uL<0.46 k/uLMadison HealthEosinophils/100 WBC (Bld)0.6 % [facility] HealthErythrocyte distribution width (RBC) [Ratio]16.5 %High11.5 - 15.0 %[facility] HealthHematocrit (Bld) [Volume fraction]36.5 %Low39.0 - 51.0 % [facility] HealthHemoglobin (Bld) [Mass/Vol]11.9 g/dLLow13.0 - 17.0 g/dLMadison HealthImmature Gran %0.9 %[facility] HealthLymphocytes (Bld) [#/Vol]1.39 10*3/uL 1.00 - 4.00 k/uLMadison HealthLymphocytes/100 WBC (Bld)15.6 %[facility] MCH (RBC) [Entitic mass]32.2 pg26.0 - 34.0 pgCleveland Hutchinson Health HospitalHC (RBC) [Mass/Vol]32.6 g/dL30.5 - 36.0 g/dLMadison HealthMCV (RBC) [Entitic vol]98.6 fL80.0 - 100.0 fLCleveland Bethesda HospitalMonocytes (Bld) [#/Vol]0.84 10*3/uL<0.87 k/uL Madison HealthMonocytes/100 WBC (Bld)9.4 %[facility] HealthNeutrophils (Bld) [#/Vol]6.52 10*3/uL1.45 - 7.50 k/uLMadison HealthNeutrophils/100 WBC (Bld)73.3 %Madison HealthNucleated RBC (Bld) [#/Vol]10*3/uL<0.01 k/uLMadison Health Nucleated RBC/100 WBC (Bld) [Ratio]0.0 /100 WBCMadison HealthPlatelet mean volume (Bld) [Entitic vol]9.6 fL9.0 - 12.7 fLCleveland ClinicPlatelets (Bld) [#/Vol]259 10*3/uL150 - 400 k/uLMadison HealthRBC (Bld) [#/Vol]3.70 10*6/uLLow 4.20 - 6.00 m/uLMadison HealthWBC (Bld) [#/Vol]8.90 10*3/uL3.70 - 11.00 k/uL [facility] HealthComprehensive metabolic 2000 panelon [id number] [Mass/Vol]4.5 g/dL3.9 - 4.9 g/dLPortland ClinicALP [Catalytic activity/Vol]84 U/L38 - 113 U/LCleveland ClinicALT [Catalytic activity/Vol]16 U/L10 - 54 U/L [facility] HealthAnion gap [Moles/Vol]15 mmol/L9 - 18 mmol/LCleveland ClinicAST [Catalytic activity/Vol]Madison HealthBilirubin [Mass/Vol]0.6 mg/dL0.2 - 1.3 mg/dLMadison HealthCalcium [Mass/Vol]9.6 mg/dL8.5 - 10.2 mg/dLMad[facility] Health Chloride [Moles/Vol]106 mmol/LHigh97 - 105 mmol/LCleveland ClinicCO2 [Moles/Vol] 19 mmol/LLow22 - 30 mmol/LCleveland Bethesda HospitalCreatinine [Mass/Vol]1.01 mg/dL0.73 - 1.22 mg/dLMadison HealthEstimated Glomerular Filtration Rate85 mL/min/1.73m >=60 mL/min/1.73mCleveland Bethesda HospitalGlucose [Mass/Vol]95 mg/dL74 - 99 mg/dL [facility] HealthPotassium [Moles/Vol]4.7 mmol/L3.7 - 5.1 mmol/LCleveland [facility] Protein [Mass/Vol]7.2 g/dL6.3 - 8.0 g/dLPeoples Hospitalodium [Moles/Vol]140 mmol/L136 - 144 mmol/LCadena health system ClinicUrea nitrogen [Mass/Vol]17 mg/dL9 - 24 mg/dLMadison HealthCT CHEST W IVCONon [id number] CHEST W IVCON* * *Final Report* * * DATE OF EXAM: Jun 20 2021 3:43PM [facility] 0539 - CT CHEST W IVCON / [...] seen and may be atrophied or absent. Striper (topogram) images: No additional findings. IMPRESSION: 1. [...] centrilobular emphysema with an upper lobe predominance. Ticket Agent: PSCJuan Luis Transcribe Date/Time: Jun 21 2021 5:58A Dictated by : DARIEN PARIKH MD This examination was interpreted and the report reviewed and electronically signed by: DARIEN PARIKH MD on Jun 21 2021 6:26AM EST [id number] HospitalCT NECK SOFT TISSUE W IVCONon [id number] NECK SOFT TISSUE W IVCON* * *Final Report* * * DATE OF EXAM: Jun 20 2021 3:43PM [facility] 0013 - CT NECK SOFT TISSUE W [...] was performed concurrently and is dictated separately. Striper (topogram) images: No significant findings. 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 Residual pathologic right level II lymphadenopathy, suspect increased in size since PET/CT of 04/05/2021. No discrete new pathologic lymph nodes. Chronically occluded left ICA. Ticket Agent: PSCB Transcribe Date/Time: Jun 20 2021 4:24P Dictated by : CASSIE WONG MD This examination was interpreted and the report reviewed and electronically signed by: CASSIE WONG MD on Jun 20 2021 4:45PM EST [id number]. George Regional HospitalHISTORY PHYSICALon [id number] PHYSICALHNO ID: [id number] Author: Ana Hernandez APRN.GROUP HOME MANAGER Service: ? Author Type: Nurse Practitioner Type: [...] (more content not included)...NormalMedina HospitalHISTORY PHYSICALHNO ID: [id number] Author: Ana Hernandez APRN.GROUP HOME MANAGER Service: ? Author Type: Nurse Practitioner Type: [...] vaccine (UNSPECIFIED) 08/01/2020 Imm Admin: COVID-19 vaccine (P[employer]TA[employer]) 07/11/2020 Imm Admin: COVID-19 vaccine (PFIZER-BIONTECH) Only the first 3 history entries have been loaded, but more history exists. CHIEF COMPLAINT: Pre-op exam HPI: BRAYAN is a 60 yo seen for PAC [...] fevers. Neurological: No history of TIA's, stroke, COMMODITY ANALYST tumor, impaired sensorium, hemiplegia, paraplegia or quadraplegia. No neurological symptoms or problems. Respiratory: No history of current cough or dyspnea, or pneumonia in the past 6 weeks. No history of respiratory/pulmonary symptoms or problems. Cardiovascular: No history of HTN requiring medication, no history of angina, CHF, [place], cardiac surgery or stents. Denies rest pain, [...] HX umbilical - PAST SURGICAL HISTORY OF 2007 mass removed from right lung-benign - PAST [...] (PROAIR HFA) 90 mc (more content not included)...NormalMedina Cedar City HospitalSIC METABOLIC PANELon 38-10-2746Udradla [Mass/Vol]8.6 mg/dLNormal 8.6-10.3The [facility] HospitalComment on above:Order Comment: No: Do not add to previous drawPerformed By: #### 28469, 85571, 10413 #### [facility] [address] [place] [address], USAChloride [Moles/Vol]109 mmol/BGeuj95-594Kpi [facility] HospitalComment on above:Order Comment: No: Do not add to previous drawPerformed By: #### 63812, 86035, 78206 #### [facility] [address] [place] [address], USACO2 [Moles/Vol]23 mmol/YQimomb55-67Pjo [facility] HospitalComment on above:Order Comment: No: Do not add to previous draw Performed By: #### 35398, 09791, 43495 #### [facility] [address] [place] [address], USACreatinine [Mass/Vol]0.82 mg/dLNormal0.70-1.30The [facility] HospitalComment on above:Order Comment: No: Do not add to previous drawPerformed By: #### 39007, 37087, 33497 #### [facility] [address] [place] [address], USAGFR/1.73 sq M.predicted among blacks MDRD (S/P/Bld) [Vol rate/Area]mL/min/{1.73_m2}Normal>60The [facility] Comment on above:Order Comment: No: Do not add to previous drawPerformed By: #### 43732, 62955, 56657 #### [facility] [address] [place] [address], USAGFR/1.73 sq M.predicted among non-blacks MDRD (S/P/Bld) [Vol rate/Area]mL/min/{1.73_m2}Normal>60The [facility] Comment on above:Order Comment: No: Do not add to previous drawPerformed By: #### 37458, 07289, 12115 #### [facility] [address] [place] [address], USAGlucose [Mass/Vol]117 mg/kYAzme30-786Fjf [facility] HospitalComment on above:Order Comment: No: Do not add to previous drawPerformed By: #### 30772, 73245, 33059 #### [facility] [address] [place] [address], USAPotassium [Moles/Vol]3.4 mmol/LLow3.5-5.1The [facility] HospitalComment on above:Order Comment: No: Do not add to previous drawPerformed By: #### 03074, 59586, 71013 #### [facility] [address] [place] [address], USASodium [Moles/Vol]139 mmol/XPdniou456-292Cdy [facility] HospitalComment on above:Order Comment: No: Do not add to previous drawPerformed By: #### 82608, 18071, 75079 #### [facility] [address] [place] [address], USAUrea nitrogen [Mass/Vol]12 mg/dLNormal7-25The [facility] HospitalComment on above:Order Comment: No: Do not add to previous drawPerformed By: #### 22476, 73353, 46244 #### [facility] [address] [place] [address], USACBC COMPLETE BLOOD COUNTon 30-45-6892Szeswqupxcm distribution width (RBC) [Ratio]12.9 %Vcrtyk15.5-15.0The [facility] HospitalComment on above:Order Comment: No: Do not add to previous draw Performed By: #### 22075, 56108, 71509 #### [facility] [address] [place] [address], USAHematocrit (Bld) [Volume fraction]34.7 %Low39.0-50.0The [facility] HospitalComment on above:Order Comment: No: Do not add to previous drawPerformed By: #### 04511, 28487, 60674 #### [facility] [address] [place] [address], [facility] HEALTH CENTERHemoglobin (Bld) [Mass/Vol]11.3 g/dLLow13.0-17.0The [facility] HospitalComment on above:Order Comment: No: Do not add to previous drawPerformed By: #### 29274, 18304, 16608 #### [facility] [address] [place] [address], [facility] (RBC) [Entitic mass]32.7 poUutzya43.0-33.0The [facility] HospitalComment on above:Order Comment: No: Do not add to previous drawPerformed By: #### 34973, 27484, 47460 #### [facility] [address] [place] [address], [facility] HEALTH CENTERMCHC (RBC) [Mass/Vol]32.6 g/vPUqiabr62.0-35.0The [facility] HospitalComment on above:Order Comment: No: Do not add to previous drawPerformed By: #### 13225, 91448, 06344 #### [facility] [address] [place] [address], [facility] (RBC) [Entitic vol]100.3 wAEtwb46.0-98.0The [facility] HospitalComment on above:Order Comment: No: Do not add to previous drawPerformed By: #### 78426, 44845, 65779 #### [facility] [address] [place] [address], USANucleated RBC/100 WBC (Bld) [Ratio]0 %Normal0-0The [facility] HospitalComment on above:Order Comment: No: Do not add to previous drawPerformed By: #### 08768, 56287, 80939 #### [facility] [address] [place] [address], USAPLAT CXT733 10*3/rNZbncqu195-866Dty [facility] HospitalComment on above:Order Comment: No: Do not add to previous draw Performed By: #### 22084, 98348, 32003 #### [facility] [address] [place] [address], USARBC (Bld) [#/Vol]3.46 10*6/uLLow4.20-5.70The [facility] HospitalComment on above:Order Comment: No: Do not add to previous drawPerformed By: #### 30502, 15879, 25388 #### [facility] [address] [place] [address], USAWBC (Bld) [#/Vol]7.24 10*3/uLNormal4.00-10.60The [facility] HospitalComment on above:Order Comment: No: Do not add to previous drawPerformed By: #### 27392, 49560, 81587 #### [facility] [address] [place] [address], USAMAGNESIUM BLOODon 99-37-0110Wbkjyclyv [Mass/Vol]1.7 mg/dL Low1.9-2.7The [facility] HospitalComment on above:Order Comment: No: Do not add to previous drawPerformed By: #### 65969, 19901, 67492 #### [facility] [address] [place] [address], USAPHOSPHORUS BLOODon 98-85-1288Runlzzvak [Mass/Vol]1.7 mg/dL Low2.5-5.0The [facility] HospitalComment on above:Order Comment: No: Do not add to previous drawPerformed By: #### 99371, 83311, 40246 #### [facility] [address] [place] [address], USABASIC METABOLIC PANELon 70-66-0216Inxgbnk [Mass/Vol]8.7 mg/dLNormal8.6-10.3The [facility] HospitalComment on above:Order Comment: No: Do not add to previous drawPerformed By: #### 44981, 09758 #### [facility] [address] [place] [address], USAChloride [Moles/Vol]105 mmol/WCrbaix09-459Krs [facility] HospitalComment on above:Order Comment: No: Do not add to previous drawPerformed By: #### 91483, 12102 #### [facility] [address] [place] [address], USACO2 [Moles/Vol]19 mmol/LWfq44-75Qrk [facility] HospitalComment on above:Order Comment: No: Do not add to previous draw Performed By: #### 21486, 31834 #### [facility] [address] [place] [address], USACreatinine [Mass/Vol]0.91 mg/dLNormal0.70-1.30The [facility] HospitalComment on above:Order Comment: No: Do not add to previous drawPerformed By: #### 98211, 80363 #### [facility] [address] [place] [address], USAGFR/1.73 sq M.predicted among blacks MDRD (S/P/Bld) [Vol rate/Area]mL/min/{1.73_m2}Normal>60The [facility] Comment on above:Order Comment: No: Do not add to previous drawPerformed By: #### 34340, 47472 #### [facility] [address] [place] [address], USAGFR/1.73 sq M.predicted among non-blacks MDRD (S/P/Bld) [Vol rate/Area]mL/min/{1.73_m2}Normal>60The [facility] Comment on above:Order Comment: No: Do not add to previous drawPerformed By: #### 89418, 91188 #### [facility] [address] [place] [address], USAGlucose [Mass/Vol]63 mg/tNQgk34-016Mqr [facility] HospitalComment on above:Order Comment: No: Do not add to previous draw Performed By: #### 18783, 46757 #### [facility] [address] [place] [address], USAPotassium [Moles/Vol]3.8 mmol/LNormal3.5-5.1The [facility] HospitalComment on above:Order Comment: No: Do not add to previous drawPerformed By: #### 17950, 32804 #### [facility] [address] [place] [address], USASodium [Moles/Vol]139 mmol/FHozfbc090-106Nbm [facility] HospitalComment on above:Order Comment: No: Do not add to previous drawPerformed By: #### 73069, 04920 #### [facility] [address] [place] [address], USAUrea nitrogen [Mass/Vol]24 mg/dLNormal7-25The [facility] HospitalComment on above:Order Comment: No: Do not add to previous drawPerformed By: #### 94443, 71733 #### [facility] [address] [place] [address], USACBC COMPLETE BLOOD COUNTon 94-25-1104Thbfjklpdsh distribution width (RBC) [Ratio]13.0 %Kpuiij70.5-15.0The [facility] HospitalComment on above:Order Comment: No: Do not add to previous draw Performed By: #### 94773, 12681, 43574 #### [facility] [address] [place] [address], USAHematocrit (Bld) [Volume fraction]35.3 %Low39.0-50.0The [facility] HospitalComment on above:Order Comment: No: Do not add to previous drawPerformed By: #### 78908, 28952, 36614 #### [facility] [address] [place] [address], [facility] HEALTH CENTERHemoglobin (Bld) [Mass/Vol]11.5 g/dLLow13.0-17.0The [facility] HospitalComment on above:Order Comment: No: Do not add to previous drawPerformed By: #### 49593, 83927, 99466 #### [facility] [address] [place] [address], [facility] (RBC) [Entitic mass]32.8 xyItublw34.0-33.0The [facility] HospitalComment on above:Order Comment: No: Do not add to previous drawPerformed By: #### 87833, 94845, 52741 #### [facility] [address] [place] [address], [facility]HC (RBC) [Mass/Vol]32.6 g/tNLprzwf63.0-35.0The [facility] HospitalComment on above:Order Comment: No: Do not add to previous drawPerformed By: #### 85018, 09321, 60164 #### [facility] [address] [place] [address], [facility] (RBC) [Entitic vol]100.6 sPUyha72.0-98.0The [facility] HospitalComment on above:Order Comment: No: Do not add to previous drawPerformed By: #### 83732, 76562, 01988 #### [facility] [address] [place] [address], USANucleated RBC/100 WBC (Bld) [Ratio]0 %Normal0-0The [facility] HospitalComment on above:Order Comment: No: Do not add to previous drawPerformed By: #### 83434, 17995, 88941 #### [facility] [address] [place] [address], USAPLAT [id number] 10*3/yGIwvevq706-556Mai [facility] HospitalComment on above:Order Comment: No: Do not add to previous draw Performed By: #### [id number], [id number], [id number] #### [facility] [address] [place] [address], USARBC (Bld) [#/Vol]3.51 10*6/uLLow4.20-5.70The [facility] HospitalComment on above:Order Comment: No: Do not add to previous drawPerformed By: #### [id number], [id number], [id number] #### [facility] [address] [place] [address], USAWBC (Bld) [#/Vol]7.96 10*3/uLNormal4.00-10.60The [facility] HospitalComment on above:Order Comment: No: Do not add to previous drawPerformed By: #### 85561, 75950, [id number] #### [facility] [address] [place] [address], USAMAGNESIUM BLOODon [id number] [Mass/Vol]1.8 mg/dL Low1.9-2.7The [facility] HospitalComment on above:Order Comment: No: Do not add to previous drawPerformed By: #### [id number], [id number] #### [facility] [address] [address], [place]AP[place] GLUCOSE LABon [id number] [Mass/Vol]167 mg/dLHigh 70-100The [facility] HospitalComment on above:Performed By: #### 04710, 99929, 05760 #### [facility] [address] [address], USAABDOMEN 1 VWon [id number] 1 [facility] Department of Radiology [address] [place] [id number] Patient Name: ALEJO FLOYD : 1960 Sex: M Age: Race: Black Pt. Location: [facility] Patient Status: I Ordered Date: 05/28/2021 6:00:00 [...] obstruction. Electronically signed: Kenzie Chi. Transcribed by: [email or web address], User Resident: Electronically Signed by: KENZIE CHI @ 05/28/2021 11:00 AMNormalThe [facility] [facility]rbana HospitalComment on above:Order Comment: No: Do not add to previous drawBASIC METABOLIC PANELon [id number] [Mass/Vol]9.0 mg/dLNormal8.6-10.3The [facility]rbana HospitalComment on above:Order Comment: No: Do not add to previous drawPerformed By: #### 11169, 15209, 38691 #### [facility] [address] [place] [address], USAChloride [Moles/Vol]103 mmol/VJwvslg11-133Zrc [facility] HospitalComment on above:Order Comment: No: Do not add to previous drawPerformed By: #### 34776, 09083, 52605 #### [facility] [address] [place] [address], USACO2 [Moles/Vol]19 mmol/UYos03-03Iqn [facility] HospitalComment on above:Order Comment: No: Do not add to previous draw Performed By: #### 35231, 68859, 87061 #### [facility] [address] [place] [address], USACreatinine [Mass/Vol]1.38 mg/dLHigh0.70-1.30The [facility]ana HospitalComment on above:Order Comment: No: Do not add to previous drawPerformed By: #### 28062, 18924, 62862 #### [facility] [address] [place] [address], USAeGFR- non- Qwshjewb75 ml/min/1.73sq mAbnormal>60The [facility] HospitalComment on above:Order Comment: No: Do not add to previous drawPerformed By: #### 10213, 80317, 62142 #### [facility] [address] [place] [address], USAGFR/1.73 sq M.predicted among blacks MDRD (S/P/Bld) [Vol rate/Area]mL/min/{1.73_m2}Normal>60The [facility] Comment on above:Order Comment: No: Do not add to previous drawPerformed By: #### 88488, 42720, 04990 #### [facility] [address] [place] [address], USAGlucose [Mass/Vol]79 mg/nBFuncww44-533Uao [facility] HospitalComment on above:Order Comment: No: Do not add to previous drawPerformed By: #### 30757, 47284, 44321 #### [facility] [address] [place] [address], USAPotassium [Moles/Vol]3.9 mmol/LNormal3.5-5.1The [facility] HospitalComment on above:Order Comment: No: Do not add to previous drawPerformed By: #### 18919, 09823, 71853 #### [facility] [address] [place] [address], USASodium [Moles/Vol]138 mmol/SLicykt997-693Sui [facility] HospitalComment on above:Order Comment: No: Do not add to previous drawPerformed By: #### 44114, 77396, 63824 #### [facility] [address] [place] [address], USAUrea nitrogen [Mass/Vol]38 mg/dLHigh7-25The [facility] HospitalComment on above:Order Comment: No: Do not add to previous drawPerformed By: #### 67610, 09242, 01902 #### [facility] [address] [place] [address], USACBC W/DIFFon 34-64-2934MVO NEUTROPHILS5.9 10*3/uLNormal 1.6-7.6The [facility] HospitalComment on above:Order Comment: No: Do not add to previous drawPerformed By: #### 88064, 00092, 12030 #### [facility] [address] [place] [address], USAANISOModerateNormalThe [facility] Comment on above:Order Comment: No: Do not add to previous drawPerformed By: #### 06702, 84892, 70481 #### [facility] [address] [place] [address], USABasophils (Bld) [#/Vol]0.0 10*3/uLNormal0.0-0.2The [facility] HospitalComment on above:Order Comment: No: Do not add to previous drawPerformed By: #### 33976, 49383, 32153 #### [facility] [address] [place] [address], USABasophils/100 WBC (Bld)0.0 %Normal0.0-1.0The [facility] HospitalComment on above:Order Comment: No: Do not add to previous drawPerformed By: #### 77773, 98737, 45277 #### [facility] [address] [place] [address], USAEosinophils (Bld) [#/Vol]0.0 10*3/uLNormal0.0-0.5The [facility] HospitalComment on above:Order Comment: No: Do not add to previous drawPerformed By: #### 87317, 33855, 48599 #### [facility] [address] [facility] [place] [address], USAEosinophils/100 WBC (Bld)0.0 %Normal0.0-6.0The [facility] HospitalComment on above:Order Comment: No: Do not add to previous drawPerformed By: #### 69627, 81591, 41060 #### [facility] [address] [facility] [address], USAErythrocyte distribution width (RBC) [Ratio]13.0 %Normal 11.5-15.0The [facility] HospitalComment on above:Order Comment: No: Do not add to previous drawPerformed By: #### 31375, 23354, 79281 #### [facility] [address] [facility] [place] [address], USAGIANT PLATELETSPresentNormalThe [facility] HospitalComment on above:Order Comment: No: Do not add to previous draw Performed By: #### 47171, 84226, 67449 #### [facility] [address] [place] [address], USAHematocrit (Bld) [Volume fraction]40.4 %Fcrqtu69.0-50.0The [facility] HospitalComment on above:Order Comment: No: Do not add to previous drawPerformed By: #### 78412, 74614, 41221 #### [facility] [address] [place] [address], USAHemoglobin (Bld) [Mass/Vol]12.7 g/dLLow13.0-17.0The [facility] HospitalComment on above:Order Comment: No: Do not add to previous drawPerformed By: #### 50735, 86893, 29245 #### [facility] [address] [place] [address], USALymphocytes (Bld) [#/Vol]1.7 10*3/uLNormal1.2-4.0The [facility] HospitalComment on above:Order Comment: No: Do not add to previous drawPerformed By: #### 87153, 82780, 57516 #### [facility] [address] [place] [address], USALymphocytes/100 WBC (Bld)18.4 %Low20.0-45.0The [facility] HospitalComment on above:Order Comment: No: Do not add to previous drawPerformed By: #### 49136, 74011, 53899 #### [facility] [address] [place] [address], USAMACROModerateNormalThe [facility] Comment on above:Order Comment: No: Do not add to previous drawPerformed By: #### 74363, 24627, 33397 #### [facility] [address] [place] [address], USAMCH (RBC) [Entitic mass]32.6 icKurhwh63.0-33.0The [facility] HospitalComment on above:Order Comment: No: Do not add to previous drawPerformed By: #### 57586, 61535, 01521 #### [facility] [address] [place] [address], [facility] HEALTH CENTERMCHC (RBC) [Mass/Vol]31.4 g/dLLow32.0-35.0The [facility] HospitalComment on above:Order Comment: No: Do not add to previous drawPerformed By: #### 40457, 88593, 50309 #### [facility] [address] [place] [address], [facility] (RBC) [Entitic vol]103.9 iYDqid28.0-98.0The [facility] HospitalComment on above:Order Comment: No: Do not add to previous drawPerformed By: #### 90725, 90661, 17975 #### [facility] [address] [place] [address], USAMonocytes (Bld) [#/Vol]1.5 10*3/uLHigh0.1-1.0The [facility] HospitalComment on above:Order Comment: No: Do not add to previous drawPerformed By: #### 74109, 50115, 67474 #### [facility] [address] [place] [address], IRXSZKSS37.5 %High5.0-12.0The [facility] HospitalComment on above:Order Comment: No: Do not add to previous drawPerformed By: #### 67464, 43852, 79172 #### [facility] [address] [place] [address], USAMYELOS1.8 %High0.0-0.0The [facility] HospitalComment on above:Order Comment: No: Do not add to previous drawPerformed By: #### 56528, 33948, 41459 #### [facility] [address] [place] [address], USANeutrophils/100 WBC (Bld)63.3 %Dmmtqb01.0-72.0The [facility] HospitalComment on above:Order Comment: No: Do not add to previous drawPerformed By: #### 53283, 30815, 22705 #### [facility] [address] [place] [address], USANucleated RBC/100 WBC (Bld) [Ratio]0 %Normal0-0The [facility] HospitalComment on above:Order Comment: No: Do not add to previous drawPerformed By: #### 24358, 49643, 64885 #### [facility] [address] [place] [address], USAPLAT MMV988 10*3/oGCmpabz726-766Dfm [facility] HospitalComment on above:Order Comment: No: Do not add to previous draw Performed By: #### 48565, 92674, 41033 #### [facility] [address] [place] [address], USARBC (Bld) [#/Vol]3.89 10*6/uLLow4.20-5.70The [facility] HospitalComment on above:Order Comment: No: Do not add to previous drawPerformed By: #### 75986, 51064, 29092 #### [facility] [address] [place] [address], USAWBC (Bld) [#/Vol]9.26 10*3/uLNormal4.00-10.60The [facility] HospitalComment on above:Order Comment: No: Do not add to previous drawPerformed By: #### 95922, 78309, 14897 #### [facility] [address] [place] [address], USAABS IMM GRANS0.1 10*3/uLNormal0.0-0.2The [facility] HospitalComment on above:Performed By: #### 77175, , 23982 #### [facility] [address] [facility] [address], USAABS NEUTROPHILS5.5 10*3/uLNormal1.6-7.6The [facility] HospitalComment on above:Performed By: #### 20446, , 06006 #### [facility] [address] [facility] [place] [address], USABasophils (Bld) [#/Vol]0.0 10*3/uLNormal0.0-0.2The [facility] HospitalComment on above:Performed By: #### 35112, , 80563 #### [facility] [address] [place] [address], USABasophils/100 WBC (Bld)0.3 %Normal0.0-1.0The [facility] HospitalComment on above:Performed By: #### 49821, , 26794 #### [facility] [address] [facility] [place] [address], [facility] HEALTH CENTEREosinophils (Bld) [#/Vol]0.0 10*3/uLNormal0.0-0.5The [facility] HospitalComment on above:Performed By: #### 20480, , 40404 #### [facility] [address] [facility] [place] [address], USAEosinophils/100 WBC (Bld)0.5 %Normal0.0-6.0The [facility] HospitalComment on above:Performed By: #### 34182, , 85456 #### [facility] [address] [facility] [place] [address], USAErythrocyte distribution width (RBC) [Ratio]12.8 %Normal 11.5-15.0The [facility] HospitalComment on above:Performed By: #### 82363, , 31201 #### [facility] [address] [place] [address], USAHematocrit (Bld) [Volume fraction]39.5 %Hdolqt90.0-50.0The [facility] HospitalComment on above:Performed By: #### 80794, 56027, 29371 #### [facility] [address] [place] [address], USAHemoglobin (Bld) [Mass/Vol]12.5 g/dLLow13.0-17.0The [facility] HospitalComment on above:Performed By: #### 43207, 70873, 47642 #### [facility] [address] [facility] [place] [address], USAIMMATURE GRANS0.6 %Normal0.0-1.0The [facility] HospitalComment on above:Performed By: #### 32424, 96282, 79726 #### [facility] [address] [facility] [place] [address], USALymphocytes (Bld) [#/Vol]1.3 10*3/uLNormal1.2-4.0The [facility] HospitalComment on above:Performed By: #### 62164, 88121, 15166 #### [facility] [address] [facility] [place] [address], USALymphocytes/100 WBC (Bld)15.4 %Low20.0-45.0The [facility] HospitalComment on above:Performed By: #### 53039, 08235, 09629 #### [facility] [address] [facility] [address], [facility] (RBC) [Entitic mass]32.9 voTfdqqe54.0-33.0The [facility] HospitalComment on above:Performed By: #### 19014, 17105, 29727 #### [facility] [address] [facility] [place] [address], USAMCHC (RBC) [Mass/Vol]31.6 g/dLLow32.0-35.0The [facility] HospitalComment on above:Performed By: #### 70529, 70651, 61199 #### [facility] [address] [place] [address], [facility] HEALTH CENTERMCV (RBC) [Entitic vol]103.9 xXSuqy93.0-98.0The [facility] HospitalComment on above:Performed By: #### 52333, 47817, 45993 #### [facility] [address] [facility] [place] [address], USAMonocytes (Bld) [#/Vol]1.7 10*3/uLHigh0.1-1.0The [facility] HospitalComment on above:Performed By: #### 06925, 27259, 72070 #### [facility] [address] [facility] [place] [address], AROZARMV23.8 %High5.0-12.0The [facility] HospitalComment on above:Performed By: #### 12461, 07287, 86321 #### [facility] [address] [facility] [place] [address], USANeutrophils/100 WBC (Bld)63.4 %Klgfzn22.0-72.0The [facility] HospitalComment on above:Performed By: #### 59618, 92553, 34617 #### [facility] [address] [facility] [place] [address], USANucleated RBC/100 WBC (Bld) [Ratio]0 %Normal0-0The [facility] HospitalComment on above:Performed By: #### 27025, 76207, 86219 #### [facility] [address] [facility] [place] [address], USAPLAT TXO339 10*3/cMZyfmpd224-330Wmm [facility] HospitalComment on above:Performed By: #### 48170, 13580, 81924 #### [facility] [address] [place] [address], USARBC (Bld) [#/Vol]3.80 10*6/uLLow4.20-5.70The [facility] HospitalComment on above:Performed By: #### 13616, 12531, 38864 #### [facility] [address] [place] [address], USAWBC (Bld) [#/Vol]8.68 10*3/uLNormal4.00-10.60The [facility] HospitalComment on above:Performed By: #### 64641, 39270, 79581 #### [facility] [address] [place] [address], USACOMP METABOLIC PANELon 18-55-3605Rmlxtff [Mass/Vol]4.1 g/dL Normal3.5-5.7The [facility] HospitalComment on above:Performed By: #### 30589 #### [facility] [address] [place] [address], USAALKALINE HWQNVI54 IU/UPylpop11-030Lom [facility] HospitalComment on above:Performed By: #### 89806 #### [facility] [address] [place] [address], USAALT [Catalytic activity/Vol]14 U/LNormal7-52The [facility] HospitalComment on above:Performed By: #### 64972 #### [facility] [address] [place] [address], USAAST [Catalytic activity/Vol]15 U/STxeraz62-40Uvh [facility] HospitalComment on above:Performed By: #### 90394 #### [facility] [address] [place] [address], USABilirubin [Mass/Vol]1.0 mg/dLNormal0.3-1.0The [facility] HospitalComment on above:Performed By: #### 14614 #### [facility] [address] [place] [address], USACalcium [Mass/Vol]9.1 mg/dLNormal8.6-10.3The [facility] HospitalComment on above:Performed By: #### 65108 #### [facility] [address] [place] [address], USAChloride [Moles/Vol]102 mmol/PPpljkl36-537Jne [facility] HospitalComment on above:Performed By: #### 91975 #### [facility] [address] [place] [address], USACO2 [Moles/Vol]22 mmol/SSecfzh39-22Uzk [facility] HospitalComment on above:Performed By: #### 02157 #### [facility] [address] [place] [address], USACreatinine [Mass/Vol]1.51 mg/dLHigh0.70-1.30The [facility] HospitalComment on above:Performed By: #### 33723 #### [facility] [address] [place] [address], USAeGFR- Uiitfedd32 ml/min/1.73sq mAbnormal>60The [facility] HospitalComment on above:Performed By: #### 43968 #### [facility] [address] [place] [address], USAeGFR- non- Qshueois52 ml/min/1.73sq mAbnormal>60The [facility] HospitalComment on above:Performed By: #### 10568 #### [facility] [address] [place] [address], USAGlucose [Mass/Vol]84 mg/lOOpanfw57-880Vzj [facility] HospitalComment on above:Performed By: #### 54564 #### [facility] [address] [place] [address], USAPotassium [Moles/Vol]3.9 mmol/LNormal3.5-5.1The [facility] HospitalComment on above:Performed By: #### 09234 #### [facility] [address] [place] [place] [address], USAProtein [Mass/Vol]7.2 g/dLNormal6.0-8.3The [facility] HospitalComment on above:Performed By: #### 34541 #### [facility] [address] [place] [address], USASodium [Moles/Vol]139 mmol/PJhkxwl160-648Mwh [facility] HospitalComment on above:Performed By: #### 07612 #### [facility] [address] [place] [address], USAUrea nitrogen [Mass/Vol]40 mg/dLHigh7-25The [facility] HospitalComment on above:Performed By: #### 61991 #### [facility] [address] [place] [address], USALACTATE WITH REFLEXon 47-89-2677Cwcjnhj [Moles/Vol]0.6 mmol/LNormal.5-2.2The [facility] HospitalComment on above: Performed By: #### 19366 #### [facility] [address] [place] [address], USAMAGNESIUM BLOODon 60-70-2099Hwjmwluhx [Mass/Vol]2.0 mg/dL Normal1.9-2.7The [facility] HospitalComment on above:Order Comment: No: Do not add to previous drawPerformed By: #### 31659, 57912, 41882 #### [facility] [address] [place] [address], USAPHOSPHORUS BLOODon 09-03-4540Ccfpdbmea [Mass/Vol]3.2 mg/dL Normal2.5-5.0The [facility] HospitalComment on above:Order Comment: No: Do not add to previous drawPerformed By: #### 84553, 17439, 96443 #### [facility] [address] [place] [address], [facility] CENTERPO SARS COV2 ANTIGEN NEGATIVEon 95-69-6611DCI SARS COV2 ANTIGEN NEGNegativeNormalNEGATIVEThe [facility] HospitalComment on above:Result Comment: Negative results should [...] antigen from SARS-CoV-2 in direct nasopharyngeal swab (EXTRUSION PROCESS OPERATOR) specimens from individuals who are suspected of [...] Compliance, or Certificate of Accreditation.Performed By: #### 97706, 58038, 48166 #### [facility] [address] [place] [address], USAGLUCOSE, BLOOD (POC)on 31-04-7312Bggymyx [Mass/Vol]102 mg/wMIhepkxku37 - 99 mg/dLMadison HealthComment on above:Location:[facility], [address] [place] [address] , [place], [place], [facility] The Accu-Chek Inform II glucose meter [...] above situations. Interpretation and review of laboratory resultsAbnormalCKettering Health PreblePET+CT Guidance for localization of tumor of Skull base to mid-thigh-- W 18F-FDG Joanna 56-62-9565OBUQRUSXIW: 1. HEAD/NECK: New left oral pharyngeal FDG [...] any questions regarding this interpretation, please call [phone]. If you are unable to reach us at the number above, please feel free to contact [facility] at [phone].DIVISION OF RADIOLOGY* * *Final Report* * * DATE OF EXAM: Apr 05 2021 11:05AM NRN 0063 - NM PET/CT SKULL-THIGH SUBQ / PROCEDURE REASON: Malignant neoplasm of head, face and neck (HCC) * * * * Physician Interpretation * * * * RESULT: EXAMINATION: SKULL KAHKYJ-EN-NYEFTJ FDG PET/CT SCAN HISTORY: 60 years old [...] Max SUV 1.6 Liver: Max SUV 3.7 Striper (topogram) images: No additional findings. HEAD AND [...] the L1 vertebral body. DIVISION OF RADIOLOGYProvider, [facility] [place] - 04/05/2021 * * *Final Report* * * DATE OF EXAM: Apr 05 2021 11:05AM NRN 0063 - NM PET/CT SKULL-THIGH SUBQ / PROCEDURE REASON: Malignant neoplasm of head, face and neck (HCC) * * * * Physician Interpretation * * * * RESULT: EXAMINATION: SKULL XDXOFE-MC-QCIAAE FDG PET/CT SCAN HISTORY: 60 years old [...] Max SUV 1.6 Liver: Max SUV 3.7 Striper (topogram) images: No additional findings. HEAD AND [...] any questions regarding this interpretation, please call [phone]. If you are unable to reach us at the number above, please feel free to contact [facility] at [phone]. [facility] HealthRad[facility] Study observation (narrative)[facility]+CT Guidance for localization of tumor of Skull base to mid-thigh-- W 18F-FDG IV Ordered By: Ccf Provider on 21-51-5214Xsdhdfntw ClinicBaharrison memorial hospital Metabolic,Non-Fastingon 19-55-9414Rwqrygfdcq mass conc0.98 mg/dLNormal0.70-1.30 [facility] CenterComment on above:Order Comment: Is Patient Fasting? YesPerformed By: #### L400.0152, L400.2200, L400.5100 ####Main Laboratory ([facility])[address], [place] [phone] Nivar, MDGFR/1.73 sq M predicted among non-blacks MDRD vol rate/area (S/P/Bld)mL/min/{1.73_m2} NormalAshtabula County Medical CenterComment on above:Order Comment: Is Patient Fasting? YesResult Comment: Chronic Kidney Disease stages by NKDFStage eGFR I >90 II 60-89 III 30-59 IV 15-29 V <15 or dialysisAGE(years) AVERAGE GFR 50-59 93 ml/min/1.73 square metersNote:This result is normalized to 1.73 square meter body surface area. Height and weight are not factored.Performed By: #### L400.0152, L400.2200, L400.5100 ####Main Laboratory ([facility])[address], [place] [phone] Sandy, MDAnion gap 3 molar conc8 mmol/LNormal4-12[facility] CenterComment on above:Order Comment: Is Patient Fasting? YesPerformed By: #### L400.0152, L400.2200, L400.5100 ####Main Laboratory ([facility])[address], [place] [phone] Sandy, MDCalcium mass conc8.8 mg/dLNormal8.8-10.5[facility] Medical CenterComment on above:Order Comment: Is Patient Fasting? Yes Performed By: #### L400.0152, L400.2200, L400.5100 ####Main Laboratory ([facility])[address], [place] [phone] Sandy, MDChloride molar nnze147 mmol/MTfxeeq535-699GfreAshtabula County Medical CenterComment on above: Order Comment: Is Patient Fasting? YesPerformed By: #### L400.0152, L400.2200, L400.5100 ####Main Laboratory ([facility])[address], [place] [phone] Sandy, MDCO2 molar conc22 mmol/LPimdzt46-55CkqzAshtabula County Medical CenterComment on above:Order Comment: Is Patient Fasting? YesPerformed By: #### L400.0152, L400.2200, L400.5100 ####Main Laboratory ([facility])[address], [place] [phone] Sandy, MDGlucose mass iqbo045 mg/aZGikmvu02-491GqtkAshtabula County Medical CenterComment on above:Order Comment: Is Patient Fasting? YesResult Comment: *This reference range applies to fasting specimens only.Performed By: #### L400.0152, L400.2200, L400.5100 ####Main Laboratory ([facility])[address] [phone] Sandy, MDPotassium molar conc4.4 mmol/LNormal3.6-5.0[facility] CenterComment on above:Order Comment: Is Patient Fasting? YesPerformed By: #### L400.0152, L400.2200, L400.5100 ####Main Laboratory ([facility])[address], [place] [phone] Sandy, MDSodium molar xono750 mmol/FMai187-158JialAshtabula County Medical CenterComment on above:Order Comment: Is Patient Fasting? Yes Performed By: #### L400.0152, L400.2200, L400.5100 ####Main Laboratory ([facility])[address], [place] [phone] Sandy, MDUrea nitrogen mass conc17 mg/dLNormal7-20[facility] Medical CenterComment on above: Order Comment: Is Patient Fasting? YesPerformed By: #### L400.0152, L400.2200, L400.5100 ####Main Laboratory ([facility])[address], [place] [phone] Sandy, MDCBC with Differentialon 01-40-7885Yii Baso Count0 /cmmNormal0-200As[facility] County Medical CenterComment on above:Performed By: #### L400.0152, L400.2200, L400.5100 ####[facility] ([facility])[address], [place] [phone] Sandy, MDAbs Eos Ekfzj665 /cmmNormal0-500As[facility] Medical CenterComment on above:Performed By: #### L400.0152, L400.2200, L400.5100 ####[facility] ([facility])[address], [place] [phone] Sandy, MDAbs [place] Krlnx5003 /cmmHigh0-800 [facility] CenterComment on above:Performed By: #### L400.0152, L400.2200, L400.5100 ####[facility] ([facility])[address], [place] [phone] Sandy, MDAbs Neut Nekkx8428 /tikSbfgne0472-9565CdgfAshtabula County Medical CenterComment on above:Performed By: #### L400.0152, L400.2200, L400.5100 ####[facility] ([facility])[address], [place] [phone] Nivar, MDBasophils Auto #/vol (Bld)0.5 %Normal0-2LSelect Medical Specialty Hospital - Columbus SouthComment on above:Performed By: #### L400.0152, L400.2200, L400.5100 ####[facility] ([facility])[address], [place] [phone] Nivar, MDEOS-Auto Diff2.2 %Normal0-6[facility] Medical CenterComment on above:Performed By: #### L400.0152, L400.2200, L400.5100 ####[facility] ([facility])[address], [place] [phone] Nivar, MDErythrocyte distribution width Auto Ratio (RBC) 17.7 %High12.0-16.0[facility] Medical CenterComment on above:Performed By: #### L400.0152, L400.2200, L400.5100 ####[facility] ([facility])[address], [place] [phone] Nivar, MDHematocrit Auto Volume Fraction (Bld)27.2 %Low40.0-49.0[facility] Medical CenterComment on above:Performed By: #### L400.0152, L400.2200, L400.5100 ####[facility] ([facility])[address] [place], [place] [phone] Nivar, MD Hemoglobin mass conc (Bld)8.9 g/dLLow13.5-16.5As[facility] Medical CenterComment on above:Performed By: #### L400.0152, L400.2200, L400.5100 ####[facility] ([facility])[address] [place], [place] [phone] Nivar, MD Lymphocytes Auto #/vol (Bld)2100 /mspSwwybi9783-3722NizzAshtabula County Medical Center Comment on above:Performed By: #### L400.0152, L400.2200, L400.5100 ####[facility] ([facility])[address] [place], [place] [phone] Nivar, MDLymphocytes/100 WBC Auto (Bld)25.7 %Sgfonp29-57QpwfAshtabula County Medical Center Comment on above:Performed By: #### L400.0152, L400.2200, L400.5100 ####[facility] ([facility])[address] [place], [place] [phone] Nivar, MDMCH Auto Entitic mass (RBC)30.0 mhBevdrg77.5-33.0[facility] Comment on above:Performed By: #### L400.0152, L400.2200, L400.5100 ####[facility] ([facility])[address], [place] [phone] Sandy, MDMCHC Auto mass conc (RBC)32.6 g/dLLow33.0-36.0[facility] Comment on above:Performed By: #### L400.0152, L400.2200, L400.5100 ####[facility] ([facility])[address], [place] [phone] Sandy, MDMCV Auto Entitic volume (RBC)92.2 CU AQXJhhjiy29-94YkfbAshtabula County Medical Center Comment on above:Performed By: #### L400.0152, L400.2200, L400.5100 ####[facility] ([facility])[address], [place] [phone] Sandy, MDMono- Auto Diff11.6 %High2-10As[facility] County Medical CenterComment on above: Performed By: #### L400.0152, L400.2200, L400.5100 ####[facility] ([facility])[address], [place] [phone] Sandy, MDNeut-Auto Diff60.0 %Fyxjjk38-40GosoAshtabula County Medical CenterComment on above:Performed By: #### L400.0152, L400.2200, L400.5100 ####[facility] ([facility])[address], [place] [phone] Sandy, MDNRBC-Auto0.1 /100 WBCNormal<1LSelect Medical Specialty Hospital - Columbus SouthComment on above:Performed By: #### L400.0152, L400.2200, L400.5100 ####[facility] ([facility])[address], [place] [phone] Sandy, MDPlatelets Auto #/vol (Bld)444 th/hkrVfpr040-795CwhdAshtabula County Medical CenterComment on above:Performed By: #### L400.0152, L400.2200, L400.5100 ####[facility] ([facility])[address], [place] [phone] Sandy, MDRBC Auto #/vol (Bld)2.95 mil/cmm Low4.50-6.00[facility] County Medical CenterComment on above:Performed By: #### L400.0152, L400.2200, L400.5100 ####[facility] ([facility])[address], [place] [phone] Nivar, MDWBC Auto #/vol (Bld)8.4 th/cmm Normal4.4-10.5[facility] County Medical CenterComment on above:Performed By: #### L400.0152, L400.2200, L400.5100 ####[facility] ([facility])[address], [place] [phone] Nivar, MDMagnesiumon 10-42-1930Soggqcdra mass conc1.7 mg/dLLow1.8-2.5As[facility] County Medical CenterComment on above:Order Comment: Is Patient Fasting? YesPerformed By: #### L400.0152, L400.2200, L400.5100 ####[facility] ([facility])[address] [place], [place] [phone] Nivar, MDPrealbuminon 83-44-4301Uhfyhtiptl mass conc19.5 mg/uJDzfzgj66.0-38.0[facility] CenterCommunson healthcare [facility] on above:Order Comment: Is Patient Fasting? YesPerformed By: #### L400.0152, L400.2200, L400.5100 ####[facility] ([facility])[address], [place] [phone] Nivar, MDTriglycerideson 76-95-0363Aizisgycrkjp mass conc96 mg/dLNormal<150As[facility] Medical CenterComment on above:Order Comment: Is Patient Fasting? YesPerformed By: #### L400.0152, L400.2200, L400.5100 ####[facility] ([facility])[address], [place] [phone] Sandy, Basijavid Metabolic,Non-Fastingon 58-53-4035Alyhd gap 3 molar conc7 mmol/LNormal4-12[facility] Medical CenterComment on above: Performed By: #### L400.0152, L400.2200, L400.5100 ####[facility] ([facility])[address], [place] [phone] Sandy, MDCalcium mass conc8.5 mg/dLLow8.8-10.5[facility] Medical CenterComment on above: Performed By: #### L400.0152, L400.2200, L400.5100 ####[facility] ([facility])[address], [place] [phone] Sandy, MDChloride molar xnbt182 mmol/EAgmodn236-265VbqfAshtabula County Medical CenterComment on above: Performed By: #### L400.0152, L400.2200, L400.5100 ####[facility] ([facility])[address], [place] [phone] Sandy, MDCO2 molar conc23 mmol/NKlulod78-20NuryAshtabula County Medical CenterComment on above:Performed By: #### L400.0152, L400.2200, L400.5100 ####[facility] ([facility])[address], [place] [phone] Sandy, MDCreatinine mass conc 0.86 mg/dLNormal0.70-1.30[facility] Medical CenterComment on above:Performed By: #### L400.0152, L400.2200, L400.5100 ####[facility] ([facility])[address], [place] [phone] Sandy, MDGFR/1.73 sq M predicted among non-blacks MDRD vol rate/area (S/P/Bld)mL/min/{1.73_m2}Normal [place] [facility] Health SystemComment on above:Result Comment: Chronic Kidney Disease stages by NKDFStage eGFR I >90 II 60-89 III 30-59 IV 15-29 V <15 or dialysisAGE(years) AVERAGE GFR 50-59 93 ml/min/1.73 square metersNote:This result is normalized to 1.73 square meter body surface area. Height and weight are not factored.Performed By: #### L400.0152, L400.2200, L400.5100 ####[facility] ([facility])[address] [phone] Nivar, MDGlucose mass xoip831 mg/zAFqyhto23-922ZspwAshtabula County Medical CenterComment on above:Result Comment: *This reference range applies to fasting specimens only.Performed By: #### L400.0152, L400.2200, L400.5100 ####[facility] ([facility])[address], [place] [phone] Sandy, MDPotassium molar conc4.2 mmol/LNormal3.6-5.0[facility] Medical CenterComment on above:Performed By: #### L400.0152, L400.2200, L400.5100 ####[facility] ([facility])[address], [place] [phone] Sandy, MDSodium molar jeoj014 mmol/DPji335-704VregAshtabula County Medical CenterComment on above:Performed By: #### L400.0152, L400.2200, L400.5100 ####[facility] ([facility])[address], [place] [phone] Sandy, MDUrea nitrogen mass conc16 mg/dLNormal7-20[facility] CenterComment on above:Performed By: #### L400.0152, L400.2200, L400.5100 ####[facility] ([facility])[address], [place] [phone] Sandy, MDMagnesiumon 06-16-6346Fygzjhltw mass conc1.7 mg/dLLow1.8-2.5[facility] CenterComment on above:Performed By: #### L400.0152, L400.2200, L400.5100 ####[facility] ([facility])[address], [place] [phone] Sandy, MDBasic Metabolic,Non-Fastingon 87-60-9082Lioqu gap 3 molar conc9 mmol/LNormal4-12[facility] Comment on above:Performed By: #### L400.0202, L400.0302, L400.2200, L400.2500, L400.5100, L404.6500 ####[facility] ([facility])[address], [place] [phone] Sandy, MDCalcium mass conc8.5 mg/dLLow8.8-10.5[facility] Medical CenterComment on above:Performed By: #### L400.0202, L400.0302, L400.2200, L400.2500, L400.5100, L404.6500 ####[facility] ([facility])[address], [place] [phone] Sandy, MDChloride molar conc 99 mmol/WVcs401-884RtidAshtabula County Medical CenterComment on above:Performed By: #### L400.0202, L400.0302, L400.2200, L400.2500, L400.5100, L404.6500 ####[facility] ([facility])[address], [place] [phone] Sandy, MDCO2 molar conc23 mmol/HNgsxbf53-83TtdcAshtabula County Medical CenterComment on above: Performed By: #### L400.0202, L400.0302, L400.2200, L400.2500, L400.5100, L404.6500 ####[facility] ([facility])[address] [phone] MIAH Delgadoreatinine mass conc0.96 mg/dLNormal0.70-1.30 [facility] Medical CenterComment on above:Performed By: #### L400.0202, L400.0302, L400.2200, L400.2500, L400.5100, L404.6500 ####[facility] ([facility])[address] [place] [phone] Nivar, MDGFR/1.73 sq M predicted among non-blacks MDRD vol rate/area (S/P/Bld)mL/min/{1.73_m2} NormalAshtabula County Medical CenterComment on above:Result Comment: Chronic Kidney Disease stages by NKDFStage eGFR I >90 II 60-89 III 30-59 IV 15-29 V <15 or dialysisAGE(years) AVERAGE GFR 50-59 93 ml/min/1.73 square metersNote:This result is normalized to 1.73 square meter body surface area. Height and weight are not factored.Performed By: #### L400.0202, L400.0302, L400.2200, L400.2500, L400.5100, L404.6500 ####[facility] ([facility])[address] [place] [phone] Nivar, MDGlucose mass conc97 mg/pERlxszc48-742LwcaAshtabula County Medical CenterComment on above:Result Comment: *This reference range applies to fasting specimens only.Performed By: #### L400.0202, L400.0302, L400.2200, L400.2500, L400.5100, L404.6500 ####[facility] ([facility])[address] [place], [place] [phone] Sandy, MDPotassium molar conc4.0 mmol/LNormal3.6-5.0[facility] Medical CenterComment on above:Performed By: #### L400.0202, L400.0302, L400.2200, L400.2500, L400.5100, L404.6500 ####[facility] ([facility])[address] [place] [phone] Sandy, MDSodium molar vcbm430 mmol/CCem325-531MrlvAshtabula County Medical CenterComment on above:Performed By: #### L400.0202, L400.0302, L400.2200, L400.2500, L400.5100, L404.6500 ####[facility] ([facility])[address] [place], [place] [phone] Nivar, MDUrea nitrogen mass conc18 mg/dLNormal7-20[facility] CenterComment on above:Performed By: #### L400.0202, L400.0302, L400.2200, L400.2500, L400.5100, L404.6500 ####[facility] ([facility])[address] [place] [phone] Sandy, MDMagnesiumon 78-70-5616Ofcmivtaz mass conc1.7 mg/dLLow1.8-2.5[facility] Medical CenterComment on above:Performed By: #### L400.0202, L400.0302, L400.2200, L400.2500, L400.5100, L404.6500 ####[facility] ([facility])[address] [place] [phone] Nivar, MDBasic Metabolic,Non-Fastingon 93-97-1507Rjqta gap 3 molar conc7 mmol/LNormal4-12[facility] CenterComment on above:Performed By: #### L400.0202, L400.0302, L400.2200, L400.2500, L400.5100, L404.6500 ####[facility] ([facility])[address] [place], [place] [phone] Sandy, MDCalcium mass conc8.9 mg/dLNormal8.8-10.5[facility] Medical CenterComment on above:Performed By: #### L400.0202, L400.0302, L400.2200, L400.2500, L400.5100, L404.6500 ####[facility] ([facility])[address] [place], [place] [phone] Sandy, MDChloride molar aoxd099 mmol/GTzyyvz526-850VhknAshtabula County Medical CenterComment on above:Performed By: #### L400.0202, L400.0302, L400.2200, L400.2500, L400.5100, L404.6500 ####[facility] ([facility])[address] [place], [place] [phone] Sandy, MDCO2 molar conc24 mmol/HIpjkdx27-87VwyqAshtabula County Medical CenterComment on above:Performed By: #### L400.0202, L400.0302, L400.2200, L400.2500, L400.5100, L404.6500 ####[facility] ([facility])[address] [place], [place] [phone] Sandy, MDCreatinine mass conc 1.00 mg/dLNormal0.70-1.30[facility] CenterComment on above:Performed By: #### L400.0202, L400.0302, L400.2200, L400.2500, L400.5100, L404.6500 ####[facility] ([facility])[address] [place], [place] [phone] Sandy, MDGFR/1.73 sq M predicted among non-blacks MDRD vol rate/area (S/P/Bld)mL/min/{1.73_m2}NormalAshtabula County Medical CenterComment on above:Result Comment: Chronic Kidney Disease stages by NKDFStage eGFR I >90 II 60-89 III 30-59 IV 15-29 V <15 or dialysisAGE(years) AVERAGE GFR 50-59 93 ml/min/1.73 square metersNote:This result is normalized to 1.73 square meter body surface area. Height and weight are not factored.Performed By: #### L400.0202, L400.0302, L400.2200, L400.2500, L400.5100, L404.6500 ####[facility] ([facility])[address], [place] [phone] Nivar, MDGlucose mass conc94 mg/tAXstsyy78-918ZubjAshtabula County Medical CenterComment on above:Result Comment: *This reference range applies to fasting specimens only.Performed By: #### L400.0202, L400.0302, L400.2200, L400.2500, L400.5100, L404.6500 ####[facility] ([facility])[address], [place] [phone] Nivar, MDPotassium molar conc 4.2 mmol/LNormal3.6-5.0[facility] CenterComment on above:Performed By: #### L400.0202, L400.0302, L400.2200, L400.2500, L400.5100, L404.6500 ####[facility] ([facility])[address], [place] [phone] Sandy, MDSodium molar lhxh737 mmol/IDmg701-168JtuoAshtabula County Medical CenterComment on above:Performed By: #### L400.0202, L400.0302, L400.2200, L400.2500, L400.5100, L404.6500 ####[facility] ([facility])[address], [place] [phone] Nivar, MDUrea nitrogen mass conc18 mg/dLNormal7-20[facility] CenterComment on above:Performed By: #### L400.0202, L400.0302, L400.2200, L400.2500, L400.5100, L404.6500 ####[facility] ([facility])[address], [place] [phone] Nivar, MDMagnesiumon 41-34-0160Iyjxhrghz mass conc1.7 mg/dLLow1.8-2.5[facility] Comment on above:Performed By: #### L400.0202, L400.0302, L400.2200, L400.2500, L400.5100, L404.6500 ####[facility] ([facility])[address] [place], [place] [phone] Nivar, MDBasijavid Metabolic,Non-Fastingon 44-23-6514Qlotw gap 3 molar conc8 mmol/LNormal4-12[facility] CenterComment on above: Performed By: #### L400.0202, L400.0302, L400.2200, L400.2500, L400.5100, L404.6500 ####[facility] ([facility])[address], [place] [phone] Sandy, MDCalcium mass conc8.6 mg/dLLow8.8-10.5[facility] CenterComment on above:Performed By: #### L400.0202, L400.0302, L400.2200, L400.2500, L400.5100, L404.6500 ####[facility] ([facility])[address], [place] [phone] Sandy, MDChloride molar conc 102 mmol/CLdwzri244-488CaqbAshtabula County Medical CenterComment on above:Performed By: #### L400.0202, L400.0302, L400.2200, L400.2500, L400.5100, L404.6500 ####[facility] ([facility])[address], [place] [phone] Sandy, MDCO2 molar conc21 mmol/EFmcaln37-52IulpAshtabula County Medical CenterComment on above: Performed By: #### L400.0202, L400.0302, L400.2200, L400.2500, L400.5100, L404.6500 ####[facility] ([facility])[address] [place], [place] [phone] Sandy, MDCreatinine mass conc0.98 mg/dLNormal0.70-1.30 [facility] CenterComment on above:Performed By: #### L400.0202, L400.0302, L400.2200, L400.2500, L400.5100, L404.6500 ####[facility] ([facility])[address] [place], [place] [phone] Sandy, MDGFR/1.73 sq M predicted among non-blacks MDRD vol rate/area (S/P/Bld)mL/min/{1.73_m2} NormalAshtabula County Medical CenterComment on above:Result Comment: Chronic Kidney Disease stages by NKDFStage eGFR I >90 II 60-89 III 30-59 IV 15-29 V <15 or dialysisAGE(years) AVERAGE GFR 50-59 93 ml/min/1.73 square metersNote:This result is normalized to 1.73 square meter body surface area. Height and weight are not factored.Performed By: #### L400.0202, L400.0302, L400.2200, L400.2500, L400.5100, L404.6500 ####[facility] ([facility])[address] [phone] Nivar, MDGlucose mass yqsk014 mg/oCRnxpvl55-416OjdsAshtabula County Medical CenterComment on above:Result Comment: *This reference range applies to fasting specimens only.Performed By: #### L400.0202, L400.0302, L400.2200, L400.2500, L400.5100, L404.6500 ####[facility] ([facility])[address], [place] [phone] Nivar, MDPotassium molar conc4.2 mmol/LNormal3.6-5.0[facility] CenterComment on above:Performed By: #### L400.0202, L400.0302, L400.2200, L400.2500, L400.5100, L404.6500 ####[facility] ([facility])[address], [place] [phone] Sandy, MDSodium molar utci755 mmol/RByc609-262PmvkAshtabula County Medical CenterComment on above:Performed By: #### L400.0202, L400.0302, L400.2200, L400.2500, L400.5100, L404.6500 ####[facility] ([facility])[address], [place] [phone] Nivar, MDUrea nitrogen mass conc16 mg/dLNormal7-20[facility] CenterComment on above:Performed By: #### L400.0202, L400.0302, L400.2200, L400.2500, L400.5100, L404.6500 ####[facility] ([facility])[address], [place] [phone] Sandy, MDMagnesiumon 60-54-1969Ghmitgjhl mass conc1.8 mg/dLNormal1.8-2.5[facility] CenterComment on above:Performed By: #### L400.0202, L400.0302, L400.2200, L400.2500, L400.5100, L404.6500 ####[facility] ([facility])[address] [place] [phone] Sandy, MDPhosphoruson 21-95-5048Ciubnuley mass conc4.2 mg/dLNormal2.4-4.7[facility] Comment on above:Performed By: #### L400.0202, L400.0302, L400.2200, L400.2500, L400.5100, L404.6500 ####[facility] ([facility])[address] [place], [place] [phone] Nivar, MDBasic Metabolic,Non-Fastingon 13-38-8437Kyxmg gap 3 molar conc7 mmol/LNormal4-12[facility] CenterComment on above: Performed By: #### L400.0202, L400.0302, L400.2200, L400.2500, L400.5100, L404.6500 ####[facility] ([facility])[address] [place], [place] [phone] Sandy, MDCalcium mass conc8.6 mg/dLLow8.8-10.5[facility] CenterComment on above:Performed By: #### L400.0202, L400.0302, L400.2200, L400.2500, L400.5100, L404.6500 ####[facility] ([facility])[address] [place], [place] [phone] Sandy, MDChloride molar conc 103 mmol/JZppzkh117-150GtivAshtabula County Medical CenterComment on above:Performed By: #### L400.0202, L400.0302, L400.2200, L400.2500, L400.5100, L404.6500 ####[facility] ([facility])[address] [phone] Sandy, MDCO2 molar conc23 mmol/DAwtneo86-10BguiAshtabula County Medical CenterCommunson healthcare [facility] on above: Performed By: #### L400.0202, L400.0302, L400.2200, L400.2500, L400.5100, L404.6500 ####[facility] ([facility])[address] [place], [place] [phone] Sandy, MDCreatinine mass conc1.00 mg/dLNormal0.70-1.30 [facility] on above:Performed By: #### L400.0202, L400.0302, L400.2200, L400.2500, L400.5100, L404.6500 ####[facility] ([facility])[address], [place] [phone] Sandy, MDGFR/1.73 sq M predicted among non-blacks MDRD vol rate/area (S/P/Bld)mL/min/{1.73_m2} NormalAshtabula County Medical CenterCommunson healthcare [facility] on above:Result Comment: Chronic Kidney Disease stages by NKDFStage eGFR I >90 II 60-89 III 30-59 IV 15-29 V <15 or dialysisAGE(years) AVERAGE GFR 50-59 93 ml/min/1.73 square metersNote:This result is normalized to 1.73 square meter body surface area. Height and weight are not factored.Performed By: #### L400.0202, L400.0302, L400.2200, L400.2500, L400.5100, L404.6500 ####Main Laboratory ([facility])[address] [place], [place] [phone] Nivar, MDGlucose mass mell779 mg/lJXebixo24-261Lawd Memorial Health SystemComment on above:Result Comment: *This reference range applies to fasting specimens only.Performed By: #### L400.0202, L400.0302, L400.2200, L400.2500, L400.5100, L404.6500 ####Main Laboratory ([facility])[address], [place] [phone] Sandy, MDPotassium molar conc4.1 mmol/LNormal3.6-5.0[facility] CenterComment on above:Performed By: #### L400.0202, L400.0302, L400.2200, L400.2500, L400.5100, L404.6500 ####Main Laboratory ([facility])[address], [place] [phone] Sandy, MDSodium molar rwit525 mmol/EHfh805-212XdhvAshtabula County Medical CenterComment on above:Performed By: #### L400.0202, L400.0302, L400.2200, L400.2500, L400.5100, L404.6500 ####Main Laboratory ([facility])[address], [place] [phone] Sandy, MDUrea nitrogen mass conc20 mg/dLNormal7-20[facility] CenterComment on above:Performed By: #### L400.0202, L400.0302, L400.2200, L400.2500, L400.5100, L404.6500 ####Main Laboratory ([facility])[address], [place] [phone] Sandy, MDMagnesiumon 84-24-3454Bjnyvpnob mass conc1.8 mg/dLNormal1.8-2.5[facility] CenterComment on above:Performed By: #### L400.0202, L400.0302, L400.2200, L400.2500, L400.5100, L404.6500 ####Main Laboratory ([facility])[address], [place] [phone] Sandy, MDBasic Metabolic,Non-Fastingon 37-19-9040Lybee gap 3 molar conc7 mmol/LNormal4-12[facility] CenterComment on above:Performed By: #### L400.0202, L400.0302, L400.2200, L400.2500, L400.5100, L404.6500 ####Main Laboratory ([facility])[address], [place] [phone] Sandy, MDCalcium mass conc8.4 mg/dLLow8.8-10.5[facility] CenterComment on above:Performed By: #### L400.0202, L400.0302, L400.2200, L400.2500, L400.5100, L404.6500 ####Main Laboratory ([facility])[address], [place] [phone] Sandy, MDChloride molar gymh110 mmol/PJawcih691-507EmedAshtabula County Medical CenterComment on above:Performed By: #### L400.0202, L400.0302, L400.2200, L400.2500, L400.5100, L404.6500 ####Main Laboratory ([facility])[address], [place] [phone] Sandy, MDCO2 molar conc21 mmol/GZoejsd37-12YdogAshtabula County Medical CenterComment on above:Performed By: #### L400.0202, L400.0302, L400.2200, L400.2500, L400.5100, L404.6500 ####Main Laboratory ([facility])[address], [place] [phone] Sandy, MDCreatinine mass conc 1.07 mg/dLNormal0.70-1.30As[facility]ula County Medical CenterComment on above:Performed By: #### L400.0202, L400.0302, L400.2200, L400.2500, L400.5100, L404.6500 ####Main Laboratory ([facility])[address] [place] [phone] Nivar, MDGFR/1.73 sq M predicted among non-blacks MDRD vol rate/area (S/P/Bld)mL/min/{1.73_m2}NormalAshtabula County Medical CenterComment on above:Result Comment: Chronic Kidney Disease stages by NKDFStage eGFR I >90 II 60-89 III 30-59 IV 15-29 V <15 or dialysisAGE(years) AVERAGE GFR 50-59 93 ml/min/1.73 square metersNote:This result is normalized to 1.73 square meter body surface area. Height and weight are not factored.Performed By: #### L400.0202, L400.0302, L400.2200, L400.2500, L400.5100, L404.6500 ####Main Laboratory ([facility])[address] [place] [phone] Nivar, MDGlucose mass vduj719 mg/tDLnyjxc27-964VavyAshtabula County Medical CenterComment on above:Result Comment: *This reference range applies to fasting specimens only.Performed By: #### L400.0202, L400.0302, L400.2200, L400.2500, L400.5100, L404.6500 ####Main Laboratory ([facility])[address], [place] [phone] Nivar, MDPotassium molar conc 3.9 mmol/LNormal3.6-5.0As[facility] County Medical CenterComment on above:Performed By: #### L400.0202, L400.0302, L400.2200, L400.2500, L400.5100, L404.6500 ####Main Laboratory ([facility])[address], [place] [phone] Sandy, MDSodium molar sdnv709 mmol/ZCdd318-254YtfiAshtabula County Medical CenterComment on above:Performed By: #### L400.0202, L400.0302, L400.2200, L400.2500, L400.5100, L404.6500 ####Main Laboratory ([facility])[address], [place] [phone] Nivar, MDUrea nitrogen mass conc20 mg/dLNormal7-20As[facility] County Medical CenterComment on above:Performed By: #### L400.0202, L400.0302, L400.2200, L400.2500, L400.5100, L404.6500 ####Main Laboratory ([facility])[address], [place] [phone] Sandy, MDMagnesiumon 38-61-2541Qvcemfror mass conc1.7 mg/dLLow1.8-2.5[facility] Comment on above:Performed By: #### L400.0202, L400.0302, L400.2200, L400.2500, L400.5100, L404.6500 ####Main Laboratory ([facility])[address], [place] [phone] Nivar, MDBasic Metabolic,Non-Fastingon 90-91-1391Hzuxj gap 3 molar conc7 mmol/LNormal4-12As[facility] County Medical CenterComment on above: Performed By: #### L400.0202, L400.0302, L400.2200, L400.2500, L400.5100, L404.6500 ####Main Laboratory ([facility])[address], [place] [phone] Sandy, MDCalcium mass conc8.4 mg/dLLow8.8-10.5Asht[facility]ula County Medical CenterComment on above:Performed By: #### L400.0202, L400.0302, L400.2200, L400.2500, L400.5100, L404.6500 ####Main Laboratory ([facility])[address] [place] [phone] Sandy, MDChloride molar conc 104 mmol/ROojtcm753-714TuvgAshtabula County Medical CenterComment on above:Performed By: #### L400.0202, L400.0302, L400.2200, L400.2500, L400.5100, L404.6500 ####Main Laboratory ([facility])[address] [place] [phone] Sandy, MDCO2 molar conc21 mmol/YYvdqev85-62VtrkAshtabula County Medical CenterComment on above: Performed By: #### L400.0202, L400.0302, L400.2200, L400.2500, L400.5100, L404.6500 ####Main Laboratory ([facility])[address] [place] [phone] Sandy, MDCreatinine mass conc1.03 mg/dLNormal0.70-1.30 [facility] County Medical CenterComment on above:Performed By: #### L400.0202, L400.0302, L400.2200, L400.2500, L400.5100, L404.6500 ####Main Laboratory ([facility])[address], [place] [phone] Sandy, MDGFR/1.73 sq M predicted among non-blacks MDRD vol rate/area (S/P/Bld)mL/min/{1.73_m2} NormalAshtabula County Medical CenterComment on above:Result Comment: Chronic Kidney Disease stages by NKDFStage eGFR I >90 II 60-89 III 30-59 IV 15-29 V <15 or dialysisAGE(years) AVERAGE GFR 50-59 93 ml/min/1.73 square metersNote:This result is normalized to 1.73 square meter body surface area. Height and weight are not factored.Performed By: #### L400.0202, L400.0302, L400.2200, L400.2500, L400.5100, L404.6500 ####Main Laboratory ([facility])[address], [place] [phone] Nivar, MDGlucose mass conc85 mg/rWKftqjl48-116LyhiAshtabula County Medical CenterComment on above:Result Comment: *This reference range applies to fasting specimens only.Performed By: #### L400.0202, L400.0302, L400.2200, L400.2500, L400.5100, L404.6500 ####Main Laboratory ([facility])[address], [place] [phone] Nivar, MDPotassium molar conc4.3 mmol/LNormal3.6-5.0As[facility] County Medical CenterComment on above:Performed By: #### L400.0202, L400.0302, L400.2200, L400.2500, L400.5100, L404.6500 ####Main Laboratory ([facility])[address], [place] [phone] Nivar, MDSodium molar dery710 mmol/ZWeg102-147YydkAshtabula County Medical CenterComment on above:Performed By: #### L400.0202, L400.0302, L400.2200, L400.2500, L400.5100, L404.6500 ####Main Laboratory ([facility])[address], [place] [phone] Nivar, MDUrea nitrogen mass conc22 mg/dLHigh7-20As[facility] County Medical CenterComment on above:Performed By: #### L400.0202, L400.0302, L400.2200, L400.2500, L400.5100, L404.6500 ####Main Laboratory ([facility])[address], [place] [phone] Sandy, MDCBC with Differentialon 75-50-7900Ctq Baso Count0 /cmmNormal0-200As[facility] County Medical CenterComment on above:Performed By: #### L400.0202, L400.0302, L400.2200, L400.2500, L400.5100, L404.6500 ####Main Laboratory ([facility])[address], [place] [phone] Sandy, MDAbs Eos Ddxol336 /cmmNormal0-500As[facility] County Medical CenterComment on above:Performed By: #### L400.0202, L400.0302, L400.2200, L400.2500, L400.5100, L404.6500 ####Main Laboratory ([facility])[address], [place] [phone] Sandy, MDAbs [place] Ajoyq957 /cmmNormal0-800As[facility] County Medical CenterComment on above: Performed By: #### L400.0202, L400.0302, L400.2200, L400.2500, L400.5100, L404.6500 ####Main Laboratory ([facility])[address], [place] [phone] Sandy, MDAbs Neut Whnih8461 /dzpHnkwvs6396-5950IeccAshtabula County Medical CenterComment on above:Performed By: #### L400.0202, L400.0302, L400.2200, L400.2500, L400.5100, L404.6500 ####Main Laboratory ([facility])[address], [place] [phone] Sandy, MDAnisocytosis Auto Ql (Bld)1+NormalAshtabula County Medical CenterComment on above:Performed By: #### L400.0202, L400.0302, L400.2200, L400.2500, L400.5100, L404.6500 ####Main Laboratory ([facility])[address], [place] [phone] Nivar, MDBasophils Auto #/vol (Bld)0.4 %Normal0-2LSelect Medical Specialty Hospital - Columbus SouthComment on above:Performed By: #### L400.0202, L400.0302, L400.2200, L400.2500, L400.5100, L404.6500 ####Main Laboratory ([facility])[address], [place] [phone] Nivar, MDEOS-Auto Diff2.6 %Normal0-6Asht[facility] County Medical CenterComment on above:Performed By: #### L400.0202, L400.0302, L400.2200, L400.2500, L400.5100, L404.6500 ####Main Laboratory ([facility])[address], [place] [phone] Nivar, MDErythrocyte distribution width Auto Ratio (RBC)18.5 %High12.0-16.0As[facility] County Medical CenterComment on above: Performed By: #### L400.0202, L400.0302, L400.2200, L400.2500, L400.5100, L404.6500 ####Main Laboratory ([facility])[address], [place] [phone] Nivar, MDHematocrit Auto Volume Fraction (Bld)26.6 %Low 40.0-49.0As[facility] County Medical CenterComment on above:Performed By: #### L400.0202, L400.0302, L400.2200, L400.2500, L400.5100, L404.6500 ####Main Laboratory ([facility])[address], [place] [phone] Nivar, MDHemoglobin mass conc (Bld)8.4 g/dLLow13.5-16.5[facility] Comment on above:Performed By: #### L400.0202, L400.0302, L400.2200, L400.2500, L400.5100, L404.6500 ####Main Laboratory ([facility])[address], [place] [phone] Nivar, MDLymphocytes Auto #/vol (Bld)2700 /cmmNormal 1000-4800Ashtabula County Medical CenterComment on above:Performed By: #### L400.0202, L400.0302, L400.2200, L400.2500, L400.5100, L404.6500 ####Main Laboratory ([facility])[address] [place], [place] [phone] Nivar, MDLymphocytes/100 WBC Auto (Bld)26.1 %Munwsl86-88StodAshtabula County Medical Center Comment on above:Performed By: #### L400.0202, L400.0302, L400.2200, L400.2500, L400.5100, L404.6500 ####Main Laboratory ([facility])[address], [place] [phone] Sandy, MDMCH Auto Entitic mass (RBC)29.6 pgNormal 27.5-33.0As[facility] County Medical CenterComment on above:Performed By: #### L400.0202, L400.0302, L400.2200, L400.2500, L400.5100, L404.6500 ####Main Laboratory ([facility])[address], [place] [phone] Sandy, MDMCHC Auto mass conc (RBC)31.7 g/dLLow33.0-36.0[facility] Comment on above:Performed By: #### L400.0202, L400.0302, L400.2200, L400.2500, L400.5100, L404.6500 ####Main Laboratory ([facility])[address], [place] [phone] Sandy, MDMCV Auto Entitic volume (RBC)93.3 CU MICNormal 80-97Asht[facility] County Medical CenterComment on above:Performed By: #### L400.0202, L400.0302, L400.2200, L400.2500, L400.5100, L404.6500 ####Main Laboratory ([facility])[address], [place] [phone] Sandy, MDMono- Auto Diff7.7 %Normal2-10As[facility] County Medical CenterComment on above:Performed By: #### L400.0202, L400.0302, L400.2200, L400.2500, L400.5100, L404.6500 ####Main Laboratory ([facility])[address], [place] [phone] Sandy, MDNeut-Auto Diff63.2 %Rdktcc72-87IhanAshtabula County Medical CenterComment on above:Performed By: #### L400.0202, L400.0302, L400.2200, L400.2500, L400.5100, L404.6500 ####Main Laboratory ([facility])[address], [place] [phone] Sandy, MDNRBC-Auto0.1 /100 WBCNormal<1LSelect Medical Specialty Hospital - Columbus SouthComment on above:Performed By: #### L400.0202, L400.0302, L400.2200, L400.2500, L400.5100, L404.6500 ####Main Laboratory ([facility])[address], [place] [phone] Sandy, MDPlatelets Auto #/vol (Bld)295 th/gjtWtgkyc949-958SkgnAshtabula County Medical Center Comment on above:Performed By: #### L400.0202, L400.0302, L400.2200, L400.2500, L400.5100, L404.6500 ####Main Laboratory ([facility])[address] [place] [phone] Nivar, MDRBC Auto #/vol (Bld)2.85 mil/cmmLow4.50-6.00 [facility] Medical CenterComment on above:Performed By: #### L400.0202, L400.0302, L400.2200, L400.2500, L400.5100, L404.6500 ####Main Laboratory ([facility])[address] [place] [phone] Nivar, MDWBC Auto #/vol (Bld)10.2 th/cmmNormal4.4-10.5As[facility] Medical CenterComment on above: Performed By: #### L400.0202, L400.0302, L400.2200, L400.2500, L400.5100, L404.6500 ####Main Laboratory ([facility])[address] [place] [phone] Nivar, MDFL MODIFIED BARIUM SWALLOW W VIDEOon [...] 03/01/2018 2:32 PMInterpreted by:NADEGE Dixonigned by:Fidel Rodriguez MD03/01/18Final result NormalTexas Health AllenHepatic Function Panel (Liver)on 03-01-2018 Albumin mass conc3.1 g/dLLow3.5-5.0As[facility] Medical CenterComment on above: Performed By: #### L400.0202, L400.0302, L400.2200, L400.2500, L400.5100, L404.6500 ####Main Laboratory ([facility])[address], [place] [phone] Sandy, MDAlk Phos97 IU/ZRtkncl13-230IjfhAshtabula County Medical CenterComment on above:Performed By: #### L400.0202, L400.0302, L400.2200, L400.2500, L400.5100, L404.6500 ####Main Laboratory ([facility])[address], [place] [phone] Sandy, MDALT/SGPT19 IU/OCnmdnj50-89BjwhAshtabula County Medical CenterComment on above:Performed By: #### L400.0202, L400.0302, L400.2200, L400.2500, L400.5100, L404.6500 ####Main Laboratory ([facility])[address], [place] [phone] Sandy, MDAST/SGOT20 IU/L Rjpafw29-49WlggAshtabula County Medical CenterComment on above:Performed By: #### L400.0202, L400.0302, L400.2200, L400.2500, L400.5100, L404.6500 ####Main Laboratory ([facility])[address], [place] [phone] Sandy, MDBili,Direct< 0.1Low0.1-0.2L[facility] Protestant HospitalComment on above: Performed By: #### L400.0202, L400.0302, L400.2200, L400.2500, L400.5100, L404.6500 ####Main Laboratory ([facility])[address], [place] [phone] Sandy, MDBili,Total< 0.1Low0.2-1.0[facility] Medical CenterComment on above:Result Comment: Delta: 0.4 on 02/22/18-0402Performed By: #### L400.0202, L400.0302, L400.2200, L400.2500, L400.5100, L404.6500 ####Main Laboratory ([facility])[address], [place] [phone] Sandy, MDProtein mass conc6.9 g/dLNormal6.2-8.0[facility] Medical CenterComment on above:Performed By: #### L400.0202, L400.0302, L400.2200, L400.2500, L400.5100, L404.6500 ####Main Laboratory ([facility])[address], [place] [phone] Sandy, MDMagnesiumon 36-53-7534Gmltjtbxn mass conc1.8 mg/dLNormal1.8-2.5[facility] Medical CenterComment on above:Performed By: #### L400.0202, L400.0302, L400.2200, L400.2500, L400.5100, L404.6500 ####Main Laboratory ([facility])[address], [place] [phone] MD SandyBasic Metabolic Panel,Fastingon 90-02-5538Enmop gap 3 molar conc5 mmol/LNormal 4-12[facility] Medical CenterComment on above:Performed By: #### L400.0202, L400.0302, L400.2200, L400.2500, L400.5100, L404.6500 ####Main Laboratory ([facility])[address], [place] [phone] Sandy, MDCalcium mass conc8.4 mg/dLLow8.8-10.5[facility] Medical CenterComment on above: Performed By: #### L400.0202, L400.0302, L400.2200, L400.2500, L400.5100, L404.6500 ####Main Laboratory ([facility])[address], [place] [phone] Sandy, MDChloride molar orqb603 mmol/HFzeryl298-579McqbAshtabula County Medical CenterComment on above:Performed By: #### L400.0202, L400.0302, L400.2200, L400.2500, L400.5100, L404.6500 ####Main Laboratory ([facility])[address], [place] [phone] Sandy, MDCO2 molar conc22 mmol/LFfbrwz14-84TfqvAshtabula County Medical CenterComment on above:Performed By: #### L400.0202, L400.0302, L400.2200, L400.2500, L400.5100, L404.6500 ####Main Laboratory ([facility])[address], [place] [phone] Sandy, MDCreatinine mass conc1.03 mg/dLNormal0.70-1.30[facility] Comment on above:Performed By: #### L400.0202, L400.0302, L400.2200, L400.2500, L400.5100, L404.6500 ####Main Laboratory ([facility])[address], [place] [phone] Sandy, MDGFR/1.73 sq M predicted among non-blacks MDRD vol rate/area (S/P/Bld)mL/min/{1.73_m2}NormalAshtabula County Medical CenterComment on above:Result Comment: Chronic Kidney Disease stages by NKDFStage eGFR I >90 II 60-89 III 30-59 IV 15-29 V <15 or dialysisAGE(years) AVERAGE GFR 50-59 93 ml/min/1.73 square metersNote:This result is normalized to 1.73 square meter body surface area. Height and weight are not factored.Performed By: #### L400.0202, L400.0302, L400.2200, L400.2500, L400.5100, L404.6500 ####Main Laboratory ([facility])[address], [place] [phone] Sandy, MDGlucose mass conc94 mg/zHYmydcz63-293NamtAshtabula County Medical CenterComment on above:Performed By: #### L400.0202, L400.0302, L400.2200, L400.2500, L400.5100, L404.6500 ####Main Laboratory ([facility])[address], [place] [phone] Sandy, MDPotassium molar conc 3.7 mmol/LNormal3.6-5.0[facility] Medical CenterComment on above:Performed By: #### L400.0202, L400.0302, L400.2200, L400.2500, L400.5100, L404.6500 ####Main Laboratory ([facility])[address], [place] [phone] Sandy, MDSodium molar ilti048 mmol/ANwioen703-854SyghAshtabula County Medical CenterComment on above:Performed By: #### L400.0202, L400.0302, L400.2200, L400.2500, L400.5100, L404.6500 ####Main Laboratory ([facility])[address], [place] [phone] Nivar, MDUrea nitrogen mass conc22 mg/dLHigh7-20[facility] Medical CenterComment on above:Performed By: #### L400.0202, L400.0302, L400.2200, L400.2500, L400.5100, L404.6500 ####Main Laboratory ([facility])[address], [place] [phone] Sandy, MDCBC with Differentialon 71-72-5889Vpf Baso Count0 /cmmNormal0-200[facility] Medical CenterComment on above:Performed By: #### L400.0202, L400.0302, L400.2200, L400.2500, L400.5100, L404.6500 ####Main Laboratory ([facility])[address], [place] [phone] Sandy, MDAbs Eos Kvfxa170 /cmmNormal0-500 [facility] Medical CenterComment on above:Performed By: #### L400.0202, L400.0302, L400.2200, L400.2500, L400.5100, L404.6500 ####Main Laboratory ([facility])[address], [place] [phone] Sandy, MDAbs [place] Flgxz4806 /cmmHigh0-800As[facility] Medical CenterComment on above:Performed By: #### L400.0202, L400.0302, L400.2200, L400.2500, L400.5100, L404.6500 ####Main Laboratory ([facility])[address], [place] [phone] Sandy, MDAbs Neut Vhfvc2799 /qxeYhlt3911-8157ZuwdAshtabula County Medical CenterComment on above:Performed By: #### L400.0202, L400.0302, L400.2200, L400.2500, L400.5100, L404.6500 ####Main Laboratory ([facility])[address], [place] [phone] Sandy MDAnisocytosis Auto Ql (Bld)1+NormalAshtabula County Medical CenterComment on above:Performed By: #### L400.0202, L400.0302, L400.2200, L400.2500, L400.5100, L404.6500 ####Main Laboratory ([facility])[address], [place] [phone] Nivar, MDBasophils Auto #/vol (Bld)0.3 %Normal0-2[facility] HospitalComment on above:Performed By: #### L400.0202, L400.0302, L400.2200, L400.2500, L400.5100, L404.6500 ####Main Laboratory ([facility])[address], [place] [phone] MD SandyEOS-Auto Diff2.9 %Normal0-6[facility] Medical CenterComment on above: Performed By: #### L400.0202, L400.0302, L400.2200, L400.2500, L400.5100, L404.6500 ####Main Laboratory ([facility])[address], [place] [phone] Nivar, MDErythrocyte distribution width Auto Ratio (RBC) 18.2 %High12.0-16.0[facility] Medical CenterComment on above:Performed By: #### L400.0202, L400.0302, L400.2200, L400.2500, L400.5100, L404.6500 ####Main Laboratory ([facility])[address], [place] [phone] Nivar, MDHematocrit Auto Volume Fraction (Bld)24.4 %Low40.0-49.0[facility] Health SystemComment on above:Performed By: #### L400.0202, L400.0302, L400.2200, L400.2500, L400.5100, L404.6500 ####Main Laboratory ([facility])[address] [place] [phone] Nivar, MDHemoglobin mass conc (Bld)7.6 g/dL Low13.5-16.5[facility] Medical CenterComment on above:Performed By: #### L400.0202, L400.0302, L400.2200, L400.2500, L400.5100, L404.6500 ####Main Laboratory ([facility])[address] [place] [phone] Nivar, MDLymphocytes Auto #/vol (Bld)3200 /iltKezpee4327-7136KwedAshtabula County Medical CenterComment on above:Performed By: #### L400.0202, L400.0302, L400.2200, L400.2500, L400.5100, L404.6500 ####Main Laboratory ([facility])[address] [place] [phone] Nivar, MDLymphocytes/100 WBC Auto (Bld)24.8 %Ilyygv08-74PltbAshtabula County Medical CenterComment on above:Performed By: #### L400.0202, L400.0302, L400.2200, L400.2500, L400.5100, L404.6500 ####Main Laboratory ([facility])[address], [place] [phone] Nivar, MDMCH Auto Entitic mass (RBC)29.2 pdXgmjwp79.5-33.0[facility] Comment on above:Performed By: #### L400.0202, L400.0302, L400.2200, L400.2500, L400.5100, L404.6500 ####Main Laboratory ([facility])[address], [place] [phone] Sandy, MDMCHC Auto mass conc (RBC)31.3 g/dLLow33.0-36.0 [facility] CenterComment on above:Performed By: #### L400.0202, L400.0302, L400.2200, L400.2500, L400.5100, L404.6500 ####Main Laboratory ([facility])[address], [place] [phone] Sandy, MDMCV Auto Entitic volume (RBC)93.4 CU PNPMismvf88-66SjfeAshtabula County Medical CenterComment on above:Performed By: #### L400.0202, L400.0302, L400.2200, L400.2500, L400.5100, L404.6500 ####Main Laboratory ([facility])[address], [place] [phone] Sandy, MDMono- Auto Diff7.7 %Normal2-10[facility] CenterComment on above:Performed By: #### L400.0202, L400.0302, L400.2200, L400.2500, L400.5100, L404.6500 ####Main Laboratory ([facility])[address], [place] [phone] Sandy, MDNeut-Auto Diff64.3 % Nyfuon75-10HvuuAshtabula County Medical CenterComment on above:Performed By: #### L400.0202, L400.0302, L400.2200, L400.2500, L400.5100, L404.6500 ####Main Laboratory ([facility])[address], [place] [phone] Sandy, MDNRBC-Auto0.1 /100 WBCNormal<1LSelect Medical Specialty Hospital - Columbus SouthComment on above: Performed By: #### L400.0202, L400.0302, L400.2200, L400.2500, L400.5100, L404.6500 ####Main Laboratory ([facility])[address] [phone] Sandy, MDPlatelets Auto #/vol (Bld)295 th/cmmNormal 150-400[facility] CenterComment on above:Performed By: #### L400.0202, L400.0302, L400.2200, L400.2500, L400.5100, L404.6500 ####Main Laboratory ([facility])[address] [phone] Sandy, MDRBC Auto #/vol (Bld)2.61 mil/cmmLow4.50-6.00[facility] CenterComment on above: Performed By: #### L400.0202, L400.0302, L400.2200, L400.2500, L400.5100, L404.6500 ####Main Laboratory ([facility])[address] [phone] Sandy, MDWBC Auto #/vol (Bld)12.9 th/cmmHigh4.4-10.5[facility] CenterComment on above:Performed By: #### L400.0202, L400.0302, L400.2200, L400.2500, L400.5100, L404.6500 ####Main Laboratory ([facility])[address] [phone] Sandy, MDMagnesiumon 59-65-5069Ypuohamrp mass conc1.8 mg/dLNormal1.8-2.5[facility] Comment on above:Performed By: #### L400.0202, L400.0302, L400.2200, L400.2500, L400.5100, L404.6500 ####Main Laboratory ([facility])[address], [place] [phone] Sandy, MDPhosphoruson 39-39-1007Agesoythy mass conc3.5 mg/dLNormal2.4-4.7[facility] [facility] Medical CenterComment on above:Performed By: #### L400.0202, L400.0302, L400.2200, L400.2500, L400.5100, L404.6500 ####[facility] ([facility])[address] [place], [place] [phone] Sandy, MDBasic Metabolic,Non-Fastingon 92-53-1747Rvgwn gap 3 molar conc7 mmol/LNormal 4-12[facility] CenterComment on above:Performed By: #### L400.0202, L400.0302, L400.2200, L400.2500, L400.5100, L404.6500 ####[facility] ([facility])[address], [place] [phone] Sandy, MDCalcium mass conc8.3 mg/dLLow8.8-10.5[facility] Medical CenterComment on above: Performed By: #### L400.0202, L400.0302, L400.2200, L400.2500, L400.5100, L404.6500 ####[facility] ([facility])[address], [place] [phone] Sandy, MDChloride molar twku170 mmol/OPiemvh987-703MqvlAshtabula County Medical CenterComment on above:Performed By: #### L400.0202, L400.0302, L400.2200, L400.2500, L400.5100, L404.6500 ####[facility] ([facility])[address], [place] [phone] Sandy, MDCO2 molar conc23 mmol/KVypbxv50-43EwobAshtabula County Medical CenterComment on above:Performed By: #### L400.0202, L400.0302, L400.2200, L400.2500, L400.5100, L404.6500 ####[facility] ([facility])[address] [place] [phone] Nivar, MDCreatinine mass conc1.21 mg/dLNormal0.70-1.30[facility] Comment on above:Performed By: #### L400.0202, L400.0302, L400.2200, L400.2500, L400.5100, L404.6500 ####[facility] ([facility])[address] [phone] Nivar, MDGFR/1.73 sq M predicted among non-blacks MDRD vol rate/area (S/P/Bld)mL/min/{1.73_m2}NormalAshtabula County Medical CenterComment on above:Result Comment: Chronic Kidney Disease stages by NKDFStage eGFR I >90 II 60-89 III 30-59 IV 15-29 V <15 or dialysisAGE(years) AVERAGE GFR 50-59 93 ml/min/1.73 square metersNote:This result is normalized to 1.73 square meter body surface area. Height and weight are not factored.Performed By: #### L400.0202, L400.0302, L400.2200, L400.2500, L400.5100, L404.6500 ####[facility] ([facility])[address] [place] [phone] Nivar, MDGlucose mass hepf435 mg/qYHorugt18-800EgtfAshtabula County Medical CenterComment on above:Result Comment: *This reference range applies to fasting specimens only.Performed By: #### L400.0202, L400.0302, L400.2200, L400.2500, L400.5100, L404.6500 ####[facility] ([facility])[address], [place] [phone] Sandy, MDPotassium molar conc 3.8 mmol/LNormal3.6-5.0[facility] Medical CenterComment on above:Performed By: #### L400.0202, L400.0302, L400.2200, L400.2500, L400.5100, L404.6500 ####[facility] ([facility])[address] [place], [place] [phone] Sandy, MDSodium molar scze991 mmol/WLfklwf516-137RpxzAshtabula County Medical CenterComment on above:Result Comment: Delta: 146 on 02/26/18Performed By: #### L400.0202, L400.0302, L400.2200, L400.2500, L400.5100, L404.6500 ####[facility] ([facility])[address], [place] [phone] Nivar, MDUrea nitrogen mass conc24 mg/dLHigh7-20[facility] Medical CenterComment on above: Performed By: #### L400.0202, L400.0302, L400.2200, L400.2500, L400.5100, L404.6500 ####[facility] ([facility])[address] [place] [phone] Sandy, MDMagnesiumon 36-69-6456Iiaoghzlz mass conc1.6 mg/dLLow1.8-2.5[facility] CenterComment on above:Performed By: #### L400.0202, L400.0302, L400.2200, L400.2500, L400.5100, L404.6500 ####[facility] ([facility])[address], [place] [phone] Sandy, MDPhosphoruson 83-29-7950Ifwthuxfe mass conc3.0 mg/dLNormal2.4-4.7[facility] CenterComment on above:Performed By: #### L400.0202, L400.0302, L400.2200, L400.2500, L400.5100, L404.6500 ####[facility] ([facility])[address] [place], [place] [phone] Sandy, MDBasic Metabolic,Non-Fastingon 50-35-1629Zmafv gap 3 molar conc10 mmol/LNormal4-12[facility] CenterComment on above:Performed By: #### L400.0202, L400.0302, L400.2200, L400.2500, L400.5100, L404.6500 ####[facility] ([facility])[address], [place] [phone] Sandy, MDCalcium mass conc8.7 mg/dLLow8.8-10.5[facility] Medical CenterComment on above:Performed By: #### L400.0202, L400.0302, L400.2200, L400.2500, L400.5100, L404.6500 ####[facility] ([facility])[address], [place] [phone] Sandy, MDChloride molar kxss330 mmol/HIrym253-091MlhwAshtabula County Medical CenterComment on above:Performed By: #### L400.0202, L400.0302, L400.2200, L400.2500, L400.5100, L404.6500 ####[facility] ([facility])[address], [place] [phone] Sandy, MDCO2 molar conc22 mmol/GMokoyj79-47CirqAshtabula County Medical CenterComment on above:Performed By: #### L400.0202, L400.0302, L400.2200, L400.2500, L400.5100, L404.6500 ####[facility] ([facility])[address] [place], [place] [phone] Sandy, MDCreatinine mass conc 1.28 mg/dLNormal0.70-1.30[facility] Medical CenterComment on above:Performed By: #### L400.0202, L400.0302, L400.2200, L400.2500, L400.5100, L404.6500 ####[facility] ([facility])[address], [place] [phone] Sandy, MDGFR/1.73 sq M predicted among non-blacks MDRD vol rate/area (S/P/Bld)mL/min/{1.73_m2}NormalAshtabula County Medical CenterComment on above:Result Comment: Chronic Kidney Disease stages by NKDFStage eGFR I >90 II 60-89 III 30-59 IV 15-29 V <15 or dialysisAGE(years) AVERAGE GFR 50-59 93 ml/min/1.73 square metersNote:This result is normalized to 1.73 square meter body surface area. Height and weight are not factored.Performed By: #### L400.0202, L400.0302, L400.2200, L400.2500, L400.5100, L404.6500 ####[facility] ([facility])[address] [place], [place] [phone] Sandy, MDGlucose mass focp104 mg/qEConupt47-853AiveAshtabula County Medical CenterComment on above:Result Comment: *This reference range applies to fasting specimens only.Performed By: #### L400.0202, L400.0302, L400.2200, L400.2500, L400.5100, L404.6500 ####[facility] ([facility])[address] [place] [phone] Sandy, MDPotassium molar conc 3.6 mmol/LNormal3.6-5.0[facility] CenterComment on above:Performed By: #### L400.0202, L400.0302, L400.2200, L400.2500, L400.5100, L404.6500 ####[facility] ([facility])[address] [place] [phone] Sandy, MDSodium molar ffvc494 mmol/PNtfo467-637IadvAshtabula County Medical CenterComment on above:Performed By: #### L400.0202, L400.0302, L400.2200, L400.2500, L400.5100, L404.6500 ####[facility] ([facility])[address] [place] [phone] Sandy, MDUrea nitrogen mass conc27 mg/dLHigh7-20[facility] CenterComment on above:Performed By: #### L400.0202, L400.0302, L400.2200, L400.2500, L400.5100, L404.6500 ####[facility] ([facility])[address] [place] [phone] Sandy, MDMagnesiumon 92-76-4032Bldhrnjsk mass conc1.9 mg/dLNormal1.8-2.5[facility] Comment on above:Performed By: #### L400.0202, L400.0302, L400.2200, L400.2500, L400.5100, L404.6500 ####[facility] ([facility])[address] [place] [phone] Sandy, MDPhosphoruson 28-17-5322Kdnfnrmax mass conc3.5 mg/dLNormal2.4-4.7[facility] CenterComment on above:Performed By: #### L400.0202, L400.0302, L400.2200, L400.2500, L400.5100, L404.6500 ####[facility] ([facility])[address] [place] [phone] Sandy, Basic Metabolic,Non-Fastingon 80-96-1405Elewe gap 3 molar conc9 mmol/LNormal 4-12[facility] CenterComment on above:Performed By: #### L400.0202, L400.0302, L400.2200, L400.2500, L400.5100, L404.6500 ####[facility] ([facility])[address], [place] [phone] Sandy, MDCalcium mass conc8.2 mg/dLLow8.8-10.5[facility] CenterComment on above: Performed By: #### L400.0202, L400.0302, L400.2200, L400.2500, L400.5100, L404.6500 ####[facility] ([facility])[address] [place], [place] [phone] Sandy, MDChloride molar dlxf445 mmol/GZobb642-918QgscAshtabula County Medical CenterComment on above:Performed By: #### L400.0202, L400.0302, L400.2200, L400.2500, L400.5100, L404.6500 ####[facility] ([facility])[address], [place] [phone] Sandy, MDCO2 molar conc22 mmol/NRskxqf61-41IgbpAshtabula County Medical CenterComment on above:Performed By: #### L400.0202, L400.0302, L400.2200, L400.2500, L400.5100, L404.6500 ####[facility] ([facility])[address], [place] [phone] Sandy, MDCreatinine mass conc1.32 mg/dLHigh0.70-1.30[facility] CenterComment on above:Performed By: #### L400.0202, L400.0302, L400.2200, L400.2500, L400.5100, L404.6500 ####[facility] ([facility])[address] [place] [phone] Nivar, MDGFR/1.73 sq M predicted among non-blacks MDRD vol rate/area (S/P/Bld)mL/min/{1.73_m2}NormalAshtabula County Medical CenterComment on above:Result Comment: Chronic Kidney Disease stages by NKDFStage eGFR I >90 II 60-89 III 30-59 IV 15-29 V <15 or dialysisAGE(years) AVERAGE GFR 50-59 93 ml/min/1.73 square metersNote:This result is normalized to 1.73 square meter body surface area. Height and weight are not factored.Performed By: #### L400.0202, L400.0302, L400.2200, L400.2500, L400.5100, L404.6500 ####[facility] ([facility])[address], [place] [phone] Nivar, MDGlucose mass conc96 mg/bPIylhwh89-996DdhfAshtabula County Medical CenterComment on above:Result Comment: *This reference range applies to fasting specimens only.Performed By: #### L400.0202, L400.0302, L400.2200, L400.2500, L400.5100, L404.6500 ####[facility] ([facility])[address], [place] [phone] Nivar, MDPotassium molar conc 3.3 mmol/LLow3.6-5.0[facility] CenterComment on above:Performed By: #### L400.0202, L400.0302, L400.2200, L400.2500, L400.5100, L404.6500 ####[facility] ([facility])[address], [place] [phone] Sandy, MDSodium molar cvnz283 mmol/LInvalid Interpretation Uerc891-165NhmtAshtabula County Medical CenterComment on above:Result Comment: Delta: 140 on 02/24/183 Performed By: #### L400.0202, L400.0302, L400.2200, L400.2500, L400.5100, L404.6500 ####[facility] ([facility])[address], [place] [phone] Nivar, MDUrea nitrogen mass conc30 mg/dLHigh7-20[facility] CenterComment on above:Performed By: #### L400.0202, L400.0302, L400.2200, L400.2500, L400.5100, L404.6500 ####[facility] ([facility])[address] [place] [phone] Sandy, MDCBC with Differentialon 24-96-4989Trr Baso Negmj797 /cmmNormal0-200[facility] CenterComment on above:Performed By: #### L400.0202, L400.0302, L400.2200, L400.2500, L400.5100, L404.6500 ####[facility] ([facility])[address] [place], [place] [phone] Sandy, MDAbs Eos Yazhs912 /cmmNormal0-500 [facility] CenterComment on above:Performed By: #### L400.0202, L400.0302, L400.2200, L400.2500, L400.5100, L404.6500 ####[facility] ([facility])[address], [place] [phone] Sandy, MDAbs [place] Skbpu603 /cmmHigh0-800[facility] CenterComment on above:Performed By: #### L400.0202, L400.0302, L400.2200, L400.2500, L400.5100, L404.6500 ####[facility] ([facility])[address], [place] [phone] Sandy, MDAbs Neut Dfcdi1941 /vooOski1695-3597YuixAshtabula County Medical CenterComment on above:Performed By: #### L400.0202, L400.0302, L400.2200, L400.2500, L400.5100, L404.6500 ####[facility] ([facility])[address], [place] [phone] MD SandyBasophils Auto #/vol (Bld)0.4 %Normal0-2LSelect Medical Specialty Hospital - Columbus SouthComment on above:Performed By: #### L400.0202, L400.0302, L400.2200, L400.2500, L400.5100, L404.6500 ####[facility] ([facility])[address], [place] [phone] MD SandyEOS-Auto Diff3.0 % Normal0-6[facility] Medical CenterComment on above:Performed By: #### L400.0202, L400.0302, L400.2200, L400.2500, L400.5100, L404.6500 ####[facility] ([facility])[address], [place] [phone] Nivar, MDErythrocyte distribution width Auto Ratio (RBC)17.8 %High12.0-16.0[facility] Medical CenterComment on above:Performed By: #### L400.0202, L400.0302, L400.2200, L400.2500, L400.5100, L404.6500 ####[facility] ([facility])[address], [place] [phone] Nivar, MDHematocrit Auto Volume Fraction (Bld)23.6 %Low40.0-49.0[facility] CenterComment on above:Performed By: #### L400.0202, L400.0302, L400.2200, L400.2500, L400.5100, L404.6500 ####[facility] ([facility])[address] [place] [phone] Nivar, MDHemoglobin mass conc (Bld)7.4 g/dLLow13.5-16.5 [facility] CenterComment on above:Performed By: #### L400.0202, L400.0302, L400.2200, L400.2500, L400.5100, L404.6500 ####[facility] ([facility])[address] [place], [place] [phone] Nivar, MD Lymphocytes Auto #/vol (Bld)3000 /isuXbzrfi6809-2138KocuAshtabula County Medical Center Comment on above:Performed By: #### L400.0202, L400.0302, L400.2200, L400.2500, L400.5100, L404.6500 ####[facility] ([facility])[address] [place] [phone] Nivar, MDLymphocytes/100 WBC Auto (Bld)21.1 %Tgdaic99-77 [facility] CenterComment on above:Performed By: #### L400.0202, L400.0302, L400.2200, L400.2500, L400.5100, L404.6500 ####[facility] ([facility])[address], [place] [phone] Nivar, MDMCH Auto Entitic mass (RBC)29.1 fgNkoiqg39.5-33.0[facility] Medical CenterComment on above:Performed By: #### L400.0202, L400.0302, L400.2200, L400.2500, L400.5100, L404.6500 ####[facility] ([facility])[address], [place] [phone] Sandy, MDMCHC Auto mass conc (RBC)31.3 g/dLLow33.0-36.0 [facility] CenterComment on above:Performed By: #### L400.0202, L400.0302, L400.2200, L400.2500, L400.5100, L404.6500 ####[facility] ([facility])[address], [place] [phone] Sandy, MDMCV Auto Entitic volume (RBC)93.2 CU KSYChgyvh15-46BwzvAshtabula County Medical CenterComment on above:Performed By: #### L400.0202, L400.0302, L400.2200, L400.2500, L400.5100, L404.6500 ####[facility] ([facility])[address], [place] [phone] Sandy, MDMono- Auto Diff6.6 %Normal2-10[facility] CenterComment on above:Performed By: #### L400.0202, L400.0302, L400.2200, L400.2500, L400.5100, L404.6500 ####[facility] ([facility])[address], [place] [phone] Sandy, MDNeut-Auto Diff68.9 % Qkifvt16-61XtorAshtabula County Medical CenterComment on above:Performed By: #### L400.0202, L400.0302, L400.2200, L400.2500, L400.5100, L404.6500 ####[facility] ([facility])[address], [place] [phone] Sandy, MDNRBC-Auto0.1 /100 WBCNormal<1LSelect Medical Specialty Hospital - Columbus SouthComment on above: Performed By: #### L400.0202, L400.0302, L400.2200, L400.2500, L400.5100, L404.6500 ####[facility] ([facility])[address] [phone] Sandy MDPlatelets Auto #/vol (Bld)304 th/cmmNormal 150-400[facility] Medical CenterComment on above:Performed By: #### L400.0202, L400.0302, L400.2200, L400.2500, L400.5100, L404.6500 ####[facility] ([facility])[address] [phone] Nivar, MDRBC Auto #/vol (Bld)2.53 mil/cmmLow4.50-6.00[facility] CenterComment on above: Performed By: #### L400.0202, L400.0302, L400.2200, L400.2500, L400.5100, L404.6500 ####[facility] ([facility])[address] [phone] Nivar, MDWBC Auto #/vol (Bld)14.1 th/cmmHigh4.4-10.5[facility] CenterComment on above:Performed By: #### L400.0202, L400.0302, L400.2200, L400.2500, L400.5100, L404.6500 ####[facility] ([facility])[address] [phone] Nivar, MDFerritinon 11-86-3316Bauoktwd [Mass/volume] in Serum or Pdwgen8316 ng/kYOeln76-093UfwvAshtabula County Medical CenterComment on above:Performed By: #### L400.0202, L400.0302, L400.2200, L400.2500, L400.5100, L404.6500 ####[facility] ([facility])[address], [place] [phone] Nivar, MDHepatic Function Panel (Liver)on 77-43-9491Yhviwur mass conc3.2 g/dLLow3.5-5.0[facility] Medical CenterComment on above:Performed By: #### L400.0202, L400.0302, L400.2200, L400.2500, L400.5100, L404.6500 ####[facility] ([facility])[address] [place], [place] [phone] Sandy, MDAlk Dhbf551 IU/L Gkwpkp02-520JvdzAshtabula County Medical CenterComment on above:Performed By: #### L400.0202, L400.0302, L400.2200, L400.2500, L400.5100, L404.6500 ####[facility] ([facility])[address] [place], [place] [phone] Nivar, MDALT/SGPT32 IU/WFtarvy40-59RdfgAshtabula County Medical CenterComment on above: Performed By: #### L400.0202, L400.0302, L400.2200, L400.2500, L400.5100, L404.6500 ####[facility] ([facility])[address] [place], [place] [phone] Sandy, MDAST/SGOT33 IU/VNmbdft25-56KrhnAshtabula County Medical CenterComment on above:Performed By: #### L400.0202, L400.0302, L400.2200, L400.2500, L400.5100, L404.6500 ####[facility] ([facility])[address] [place], [place] [phone] MD SandyBili, Total0.5 mg/dLNormal0.2-1.0 [facility] CenterComment on above:Performed By: #### L400.0202, L400.0302, L400.2200, L400.2500, L400.5100, L404.6500 ####[facility] ([facility])[address] [place] [place] [phone] Nivar, MD Bili,Direct0.1 mg/dLNormal0.1-0.2LSelect Medical Specialty Hospital - Columbus SouthComment on above: Performed By: #### L400.0202, L400.0302, L400.2200, L400.2500, L400.5100, L404.6500 ####[facility] ([facility])[address] [place], [place] [phone] Nivar, MDProtein mass conc7.8 g/dLNormal6.2-8.0[facility] CenterComment on above:Performed By: #### L400.0202, L400.0302, L400.2200, L400.2500, L400.5100, L404.6500 ####[facility] ([facility])[address] [place], [place] [phone] Nivar, MDIron Binding and Saturationon 33-25-4169Crlg, Serum59 mcg/kTDsxlnb55-083FmwlAshtabula County Medical CenterComment on above:Performed By: #### L400.0202, L400.0302, L400.2200, L400.2500, L400.5100, L404.6500 ####[facility] ([facility])[address] [place], [place] [phone] Nivar, MDTransferrin mass xznh562 mg/dLLow 180-329[facility] Medical CenterComment on above:Performed By: #### L400.0202, L400.0302, L400.2200, L400.2500, L400.5100, L404.6500 ####[facility] ([facility])[address], [place] [phone] Nivar, MD% Iron Hrogliczkq49 %Iylaub76-21WjmgAshtabula County Medical CenterComment on above:Performed By: #### L400.0202, L400.0302, L400.2200, L400.2500, L400.5100, L404.6500 ####[facility] ([facility])[address] [place] [phone] Sandy, MDMagnesiumon 77-17-8691Gipsvjlzo mass conc1.6 mg/dLLow1.8-2.5[facility] CenterComment on above:Performed By: #### L400.0202, L400.0302, L400.2200, L400.2500, L400.5100, L404.6500 ####[facility] ([facility])[address] [place] [phone] Sandy, MDPhosphoruson 98-72-1996Ojehxuwbs mass conc3.6 mg/dLNormal2.4-4.7[facility] CenterComment on above:Performed By: #### L400.0202, L400.0302, L400.2200, L400.2500, L400.5100, L404.6500 ####[facility] ([facility])[address] [place] [phone] Sandy, MDReticulocyte Counton 89-06-0137Xxhxgazqjyxs Count1.60 %Normal0.90-2.60[facility] Comment on above:Performed By: #### L400.0202, L400.0302, L400.2200, L400.2500, L400.5100, L404.6500 ####[facility] ([facility])[address] [place] [phone] Sandy, MDBasic Metabolic,Non-Fastingon 48-19-3865Pmjqe gap 3 molar conc9 mmol/LNormal4-12[facility] CenterComment on above: Performed By: #### L400.0202, L400.0302, L400.2200, L400.2500, L400.5100, L404.6500 ####[facility] ([facility])[address], [place] [phone] Sandy, MDCalcium mass conc8.1 mg/dLLow8.8-10.5[facility] CenterComment on above:Performed By: #### L400.0202, L400.0302, L400.2200, L400.2500, L400.5100, L404.6500 ####[facility] ([facility])[address], [place] [phone] Sandy, MDChloride molar conc 110 mmol/OMbetym345-180WxqiAshtabula County Medical CenterComment on above:Performed By: #### L400.0202, L400.0302, L400.2200, L400.2500, L400.5100, L404.6500 ####Main Laboratory ([facility])[address], [place] [phone] Sandy, MDCO2 molar conc21 mmol/IYshaem68-96GdbkAshtabula County Medical CenterComment on above: Performed By: #### L400.0202, L400.0302, L400.2200, L400.2500, L400.5100, L404.6500 ####Main Laboratory ([facility])[address], [place] [phone] Sandy, MDCreatinine mass conc1.42 mg/dLHigh0.70-1.30[facility] CenterComment on above:Performed By: #### L400.0202, L400.0302, L400.2200, L400.2500, L400.5100, L404.6500 ####Main Laboratory ([facility])[address], [place] [phone] Sandy, MDGFR/1.73 sq M predicted among non-blacks MDRD vol rate/area (S/P/Bld)mL/min/{1.73_m2}Normal [facility] CenterComment on above:Result Comment: Chronic Kidney Disease stages by NKDFStage eGFR I >90 II 60-89 III 30-59 IV 15-29 V <15 or dialysisAGE(years) AVERAGE GFR 50-59 93 ml/min/1.73 square metersNote:This result is normalized to 1.73 square meter body surface area. Height and weight are not factored.Performed By: #### L400.0202, L400.0302, L400.2200, L400.2500, L400.5100, L404.6500 ####Main Laboratory ([facility])[address], [place] [phone] Sandy, MDGlucose mass wljp831 mg/hMSjpx97-068MlsfAshtabula County Medical CenterComment on above: Performed By: #### L400.0202, L400.0302, L400.2200, L400.2500, L400.5100, L404.6500 ####Main Laboratory ([facility])[address], [place] [phone] Sandy, MDPotassium molar conc3.7 mmol/LNormal3.6-5.0[facility] CenterComment on above:Performed By: #### L400.0202, L400.0302, L400.2200, L400.2500, L400.5100, L404.6500 ####Main Laboratory ([facility])[address], [place] [phone] Sandy, MDSodium molar omoc903 mmol/LEvlhtu314-690MkpjAshtabula County Medical CenterComment on above:Performed By: #### L400.0202, L400.0302, L400.2200, L400.2500, L400.5100, L404.6500 ####Main Laboratory ([facility])[address], [place] [phone] Nivar, MDUrea nitrogen mass conc32 mg/dLHigh7-20[facility] CenterComment on above:Performed By: #### L400.0202, L400.0302, L400.2200, L400.2500, L400.5100, L404.6500 ####Main Laboratory ([facility])[address] [place] [phone] Nivar, MDIonized Calciumon 10-08-6870Nvvjrxy Calcium1.16 mmol/LNormal1.15-1.29[facility] CenterComment on above:Performed By: #### L400.0202, L400.0302, L400.2200, L400.2500, L400.5100, L404.6500 ####[facility] ([facility])[address] [place] [phone] Nivar, MDMagnesiumon 66-42-1101Hmrxbtlbe mass conc1.9 mg/dLNormal1.8-2.5[facility] CenterComment on above:Performed By: #### L400.0202, L400.0302, L400.2200, L400.2500, L400.5100, L404.6500 ####[facility] ([facility])[address] [place] [phone] Nivar, MDPhosphoruson 34-01-4816Vtxcuwcph mass conc4.1 mg/dLNormal2.4-4.7[facility] Comment on above:Performed By: #### L400.0202, L400.0302, L400.2200, L400.2500, L400.5100, L404.6500 ####[facility] ([facility])[address] [place] [phone] Nivar, MDBasic Metabolic,Non-Fastingon 53-06-9123Ehrpv gap 3 molar conc10 mmol/LNormal4-12[facility] CenterComment on above: Performed By: #### L400.0202, L400.0302, L400.2200, L400.2500, L400.5100, L404.6500 ####[facility] ([facility])[address], [place] [phone] Sandy, MDCalcium mass conc8.0 mg/dLLow8.8-10.5[facility] CenterComment on above:Performed By: #### L400.0202, L400.0302, L400.2200, L400.2500, L400.5100, L404.6500 ####[facility] ([facility])[address], [place] [phone] Sandy, MDChloride molar conc 112 mmol/IKtzd823-622EkllAshtabula County Medical CenterComment on above:Performed By: #### L400.0202, L400.0302, L400.2200, L400.2500, L400.5100, L404.6500 ####[facility] ([facility])[address], [place] [phone] Sandy, MDCO2 molar conc19 mmol/ZTdi37-78VfbtAshtabula County Medical CenterComment on above: Performed By: #### L400.0202, L400.0302, L400.2200, L400.2500, L400.5100, L404.6500 ####[facility] ([facility])[address], [place] [phone] Sandy, MDCreatinine mass conc1.29 mg/dLNormal0.70-1.30 [facility] CenterComment on above:Performed By: #### L400.0202, L400.0302, L400.2200, L400.2500, L400.5100, L404.6500 ####[facility] ([facility])[address], [place] [phone] Nivar, MDGFR/1.73 sq M predicted among non-blacks MDRD vol rate/area (S/P/Bld)mL/min/{1.73_m2} NormalAshtabula County Medical CenterComment on above:Result Comment: Chronic Kidney Disease stages by NKDFStage eGFR I >90 II 60-89 III 30-59 IV 15-29 V <15 or dialysisAGE(years) AVERAGE GFR 50-59 93 ml/min/1.73 square metersNote:This result is normalized to 1.73 square meter body surface area. Height and weight are not factored.Performed By: #### L400.0202, L400.0302, L400.2200, L400.2500, L400.5100, L404.6500 ####[facility] ([facility])[address], [place] [phone] Nivar, MDGlucose mass conc97 mg/vMOmxpco35-804VgppAshtabula County Medical CenterComment on above:Result Comment: *This reference range applies to fasting specimens only.Performed By: #### L400.0202, L400.0302, L400.2200, L400.2500, L400.5100, L404.6500 ####[facility] ([facility])[address], [place] [phone] Sandy, MDPotassium molar conc3.8 mmol/LNormal3.6-5.0[facility] CenterComment on above:Performed By: #### L400.0202, L400.0302, L400.2200, L400.2500, L400.5100, L404.6500 ####[facility] ([facility])[address], [place] [phone] Sandy, MDSodium molar kese570 mmol/QLarvbv249-845TtwhAshtabula County Medical CenterComment on above:Performed By: #### L400.0202, L400.0302, L400.2200, L400.2500, L400.5100, L404.6500 ####[facility] ([facility])[address] [place] [phone] Nivar, MDUrea nitrogen mass conc32 mg/dLHigh7-20[facility] CenterComment on above:Performed By: #### L400.0202, L400.0302, L400.2200, L400.2500, L400.5100, L404.6500 ####[facility] ([facility])[address] [place] [phone] Nivar, MDMagnesiumon 41-18-7645Ikqdxnmdh mass conc1.6 mg/dLLow1.8-2.5[facility] CenterComment on above:Performed By: #### L400.0202, L400.0302, L400.2200, L400.2500, L400.5100, L404.6500 ####[facility] ([facility])[address] [place] [phone] Nivar, MDPhosphoruson 01-00-7313Nacpyriuc mass conc4.0 mg/dLInvalid Interpretation Code2.4-4.7[facility] CenterComment on above:Result Comment: Delta: 1.8 on 02/22/18-0402Performed By: #### L400.0202, L400.0302, L400.2200, L400.2500, L400.5100, L404.6500 ####[facility] ([facility])[address] [place] [phone] Nivar, MDBasic Metabolic,Non-Fastingon 24-51-6566Idrzj gap 3 molar conc8 mmol/LNormal4-12[facility] CenterComment on above: Performed By: #### L400.0202, L400.0302, L400.2200, L400.2500, L400.5100, L404.6500 ####[facility] ([facility])[address], [place] [phone] Sandy, MDCalcium mass conc8.1 mg/dLLow8.8-10.5[facility] CenterComment on above:Performed By: #### L400.0202, L400.0302, L400.2200, L400.2500, L400.5100, L404.6500 ####[facility] ([facility])[address], [place] [phone] Sandy, MDChloride molar conc 114 mmol/ZPtrz863-789LbnqAshtabula County Medical CenterComment on above:Performed By: #### L400.0202, L400.0302, L400.2200, L400.2500, L400.5100, L404.6500 ####[facility] ([facility])[address], [place] [phone] Sandy, MDCO2 molar conc20 mmol/PFem73-95GhwuAshtabula County Medical CenterComment on above: Performed By: #### L400.0202, L400.0302, L400.2200, L400.2500, L400.5100, L404.6500 ####[facility] ([facility])[address], [place] [phone] Sandy, MDCreatinine mass conc1.21 mg/dLNormal0.70-1.30 [facility] CenterComment on above:Performed By: #### L400.0202, L400.0302, L400.2200, L400.2500, L400.5100, L404.6500 ####[facility] ([facility])[address], [place] [phone] Sandy, MDGFR/1.73 sq M predicted among non-blacks MDRD vol rate/area (S/P/Bld)mL/min/{1.73_m2} NormalAshtabula County Medical CenterComment on above:Result Comment: Chronic Kidney Disease stages by NKDFStage eGFR I >90 II 60-89 III 30-59 IV 15-29 V <15 or dialysisAGE(years) AVERAGE GFR 50-59 93 ml/min/1.73 square metersNote:This result is normalized to 1.73 square meter body surface area. Height and weight are not factored.Performed By: #### L400.0202, L400.0302, L400.2200, L400.2500, L400.5100, L404.6500 ####[facility] ([facility])[address] [place], [place] [phone] Sandy, MDGlucose mass bfjz828 mg/eEIfzvyb04-182YxodAshtabula County Medical CenterComment on above:Result Comment: *This reference range applies to fasting specimens only.Performed By: #### L400.0202, L400.0302, L400.2200, L400.2500, L400.5100, L404.6500 ####[facility] ([facility])[address] [place], [place] [phone] Sandy, MDPotassium molar conc4.3 mmol/LNormal3.6-5.0[facility] CenterComment on above:Performed By: #### L400.0202, L400.0302, L400.2200, L400.2500, L400.5100, L404.6500 ####[facility] ([facility])[address] [place], [place] [phone] Sandy, MDSodium molar ypjc314 mmol/XVudjhd528-200EipbAshtabula County Medical CenterComment on above:Performed By: #### L400.0202, L400.0302, L400.2200, L400.2500, L400.5100, L404.6500 ####[facility] ([facility])[address], [place] [phone] Nivar, MDUrea nitrogen mass conc35 mg/dLHigh7-20[facility] CenterComment on above:Performed By: #### L400.0202, L400.0302, L400.2200, L400.2500, L400.5100, L404.6500 ####[facility] ([facility])[address], [place] [phone] Sandy, MDCBC with Differentialon 06-97-3336Nkt Baso Dhxqo530 /cmmNormal0-200[facility] CenterComment on above:Performed By: #### L400.0202, L400.0302, L400.2200, L400.2500, L400.5100, L404.6500 ####[facility] ([facility])[address], [place] [phone] Sandy, MDAbs Eos Mdkrc399 /cmmHigh0-500[facility] CenterComment on above:Performed By: #### L400.0202, L400.0302, L400.2200, L400.2500, L400.5100, L404.6500 ####[facility] ([facility])[address], [place] [phone] Sandy, MDAbs [place] Vnauw9240 /cmmHigh0-800[facility] Medical CenterComment on above: Performed By: #### L400.0202, L400.0302, L400.2200, L400.2500, L400.5100, L404.6500 ####[facility] ([facility])[address], [place] [phone] Sandy, MDAbs Neut Nuncc80965 /bpdNjvt8008-6541VgiiAshtabula County Medical CenterComment on above:Performed By: #### L400.0202, L400.0302, L400.2200, L400.2500, L400.5100, L404.6500 ####[facility] ([facility])[address], [place] [phone] Nivar, MDBasophils Auto #/vol (Bld)0.5 %Normal0-2LSelect Medical Specialty Hospital - Columbus SouthComment on above:Performed By: #### L400.0202, L400.0302, L400.2200, L400.2500, L400.5100, L404.6500 ####[facility] ([facility])[address], [place] [phone] Nivar, MDEOS-Auto Diff3.5 %Normal0-6[facility] CenterComment on above: Performed By: #### L400.0202, L400.0302, L400.2200, L400.2500, L400.5100, L404.6500 ####[facility] ([facility])[address], [place] [phone] Nivar, MDErythrocyte distribution width Auto Ratio (RBC) 17.0 %High12.0-16.0[facility] Medical CenterComment on above:Performed By: #### L400.0202, L400.0302, L400.2200, L400.2500, L400.5100, L404.6500 ####[facility] ([facility])[address], [place] [phone] Nivar, MDHematocrit Auto Volume Fraction (Bld)27.2 %Low40.0-49.0[facility] CenterComment on above:Performed By: #### L400.0202, L400.0302, L400.2200, L400.2500, L400.5100, L404.6500 ####[facility] ([facility])[address], [place] [phone] Nivar, MDHemoglobin mass conc (Bld)8.2 g/dL Low13.5-16.5[facility] CenterComment on above:Performed By: #### L400.0202, L400.0302, L400.2200, L400.2500, L400.5100, L404.6500 ####[facility] ([facility])[address], [place] [phone] Sandy, MDLymphocytes Auto #/vol (Bld)3600 /wrzAxwfqf2543-7899LketAshtabula County Medical CenterComment on above:Performed By: #### L400.0202, L400.0302, L400.2200, L400.2500, L400.5100, L404.6500 ####[facility] ([facility])[address], [place] [phone] Sandy, MDLymphocytes/100 WBC Auto (Bld)17.6 %Rfvqcv42-39BrckAshtabula County Medical CenterComment on above:Performed By: #### L400.0202, L400.0302, L400.2200, L400.2500, L400.5100, L404.6500 ####[facility] ([facility])[address], [place] [phone] Sandy, MDMCH Auto Entitic mass (RBC)28.4 pxMpfktq92.5-33.0[facility] Comment on above:Performed By: #### L400.0202, L400.0302, L400.2200, L400.2500, L400.5100, L404.6500 ####[facility] ([facility])[address], [place] [phone] Sandy, MDMCHC Auto mass conc (RBC)30.3 g/dLLow33.0-36.0 [facility] CenterComment on above:Performed By: #### L400.0202, L400.0302, L400.2200, L400.2500, L400.5100, L404.6500 ####[facility] ([facility])[address], [place] [phone] Sandy, MDMCV Auto Entitic volume (RBC)93.9 CU GEOIeogbi32-05PgrfAshtabula County Medical CenterComment on above:Performed By: #### L400.0202, L400.0302, L400.2200, L400.2500, L400.5100, L404.6500 ####[facility] ([facility])[address], [place] [phone] Sandy, MDMono- Auto Diff4.9 %Normal2-10[facility] CenterComment on above:Performed By: #### L400.0202, L400.0302, L400.2200, L400.2500, L400.5100, L404.6500 ####[facility] ([facility])[address], [place] [phone] Sandy, MDNeut-Auto Diff73.5 % Tbwy69-53RvbxAshtabula County Medical CenterComment on above:Performed By: #### L400.0202, L400.0302, L400.2200, L400.2500, L400.5100, L404.6500 ####[facility] ([facility])[address], [place] [phone] Sandy, MDNRBC-Auto0.1 /100 WBCNormal<1LSelect Medical Specialty Hospital - Columbus SouthComment on above: Performed By: #### L400.0202, L400.0302, L400.2200, L400.2500, L400.5100, L404.6500 ####[facility] ([facility])[address], [place] [phone] Sandy, MDPlatelets Auto #/vol (Bld)377 th/cmmNormal 150-400[facility] CenterComment on above:Performed By: #### L400.0202, L400.0302, L400.2200, L400.2500, L400.5100, L404.6500 ####[facility] ([facility])[address] [place] [phone] Sandy, MDRBC Auto #/vol (Bld)2.90 mil/cmmLow4.50-6.00[facility] CenterComment on above: Performed By: #### L400.0202, L400.0302, L400.2200, L400.2500, L400.5100, L404.6500 ####[facility] ([facility])[address] [place] [phone] Sandy, MDWBC Auto #/vol (Bld)20.5 th/cmmHigh4.4-10.5[facility] CenterComment on above:Performed By: #### L400.0202, L400.0302, L400.2200, L400.2500, L400.5100, L404.6500 ####[facility] ([facility])[address] [place] [phone] Sandy, MDClostridium difficile by PCRon 99-65-4363Fevxusdrmae difficile by PCRNegativeNormalNegative [facility] CenterCommunson healthcare [facility] on above:Result Comment: Methodology: Nucleic Acid Amplification (Polymerase Chain Reaction,PCR)Positive C. Diffs should not be retested for 7 days.No testing on formed stools.For questions, please contact Microbiology lab at [phone].Performance characteristics of this assay have not beenevaluated in patients under 18 years of age. Significanceof positive results in children younger than 1 year isquestionable since they may be asymptomatically colonized.Performed By: #### L400.0202, L400.0302, L400.2200, L400.2500, L400.5100, L404.6500 ####[facility] ([facility])[address], [place] [phone] Nivar, MDHepatic Function Panel (Liver)on 87-63-2466Avqbjpl mass conc3.1 g/dLLow3.5-5.0[facility] CenterComment on above:Performed By: #### L400.0202, L400.0302, L400.2200, L400.2500, L400.5100, L404.6500 ####[facility] ([facility])[address], [place] [phone] Sandy, MDAlk Ddax472 IU/DLhhk67-202QlsoAshtabula County Medical CenterComment on above:Performed By: #### L400.0202, L400.0302, L400.2200, L400.2500, L400.5100, L404.6500 ####[facility] ([facility])[address], [place] [phone] Nivar, MDALT/SGPT31 IU/ACviojv97-89XgdjAshtabula County Medical CenterComment on above:Performed By: #### L400.0202, L400.0302, L400.2200, L400.2500, L400.5100, L404.6500 ####[facility] ([facility])[address], [place] [phone] Sandy, MDAST/SGOT32 IU/L Ubibzj71-05AbkdAshtabula County Medical CenterComment on above:Performed By: #### L400.0202, L400.0302, L400.2200, L400.2500, L400.5100, L404.6500 ####[facility] ([facility])[address], [place] [phone] Nivar, MDBili,Direct0.1 mg/dLNormal0.1-0.2LSelect Medical Specialty Hospital - Columbus SouthComment on above: Performed By: #### L400.0202, L400.0302, L400.2200, L400.2500, L400.5100, L404.6500 ####[facility] ([facility])[address], [place] [phone] Sandy, MDBili,Total0.4 mg/dLNormal0.2-1.0[facility] CenterComment on above:Performed By: #### L400.0202, L400.0302, L400.2200, L400.2500, L400.5100, L404.6500 ####[facility] ([facility])[address], [place] [phone] Sandy, MDProtein mass conc7.6 g/dLNormal6.2-8.0[facility] CenterComment on above:Performed By: #### L400.0202, L400.0302, L400.2200, L400.2500, L400.5100, L404.6500 ####[facility] ([facility])[address], [place] [phone] Sandy, MDMagnesiumon 45-96-0773Qqvkjudya mass conc1.6 mg/dLLow1.8-2.5[facility] CenterComment on above:Performed By: #### L400.0202, L400.0302, L400.2200, L400.2500, L400.5100, L404.6500 ####[facility] ([facility])[address], [place] [phone] Sandy, MDPhosphoruson 82-13-0004Fpnpnptel mass conc1.8 mg/dLLow2.4-4.7[facility] Comment on above:Performed By: #### L400.0202, L400.0302, L400.2200, L400.2500, L400.5100, L404.6500 ####[facility] ([facility])[address], [place] [phone] Sandy, MDPrealbuminon 08-29-4719Mtjsrzocbl mass conc11.7 mg/dLLow16.0-38.0[facility] CenterComment on above:Performed By: #### L400.0202, L400.0302, L400.2200, L400.2500, L400.5100, L404.6500 ####[facility] ([facility])[address], [place] [phone] Nivar, MDTriglycerideson 17-23-5521Bpawbfjxuykw mass mtcs469 mg/dLHigh<150[facility] CenterComment on above:Performed By: #### L400.0202, L400.0302, L400.2200, L400.2500, L400.5100, L404.6500 ####[facility] ([facility])[address], [place] [phone] Nivar, MDBasic Metabolic,Non-Fastingon 84-37-3414Kbxao gap 3 molar conc9 mmol/LNormal4-12[facility] CenterComment on above:Performed By: #### L400.0202, L400.0302, L400.2200, L400.2500, L400.5100, L404.6500 ####[facility] ([facility])[address], [place] [phone] Sandy, MDCalcium mass conc7.6 mg/dLLow8.8-10.5[facility] CenterComment on above:Performed By: #### L400.0202, L400.0302, L400.2200, L400.2500, L400.5100, L404.6500 ####[facility] ([facility])[address], [place] [phone] Sandy, MDChloride molar tusv799 mmol/MAbyu422-587LlcmAshtabula County Medical CenterComment on above:Performed By: #### L400.0202, L400.0302, L400.2200, L400.2500, L400.5100, L404.6500 ####[facility] ([facility])[address] [place] [phone] Sandy, MDCO2 molar conc20 mmol/CYxo06-62WjgoAshtabula County Medical CenterCommunson healthcare [facility] on above:Performed By: #### L400.0202, L400.0302, L400.2200, L400.2500, L400.5100, L404.6500 ####[facility] ([facility])[address], [place] [phone] Sandy, MDCreatinine mass conc 1.48 mg/dLHigh0.70-1.30[facility] CenterCommunson healthcare [facility] on above:Performed By: #### L400.0202, L400.0302, L400.2200, L400.2500, L400.5100, L404.6500 ####[facility] ([facility])[address], [place] [phone] Sandy, MDGFR/1.73 sq M predicted among non-blacks MDRD vol rate/area (S/P/Bld)59 mL/min/{1.73_m2}[facility]Commun[facility] on above:Result Comment: Chronic Kidney Disease stages by NKDFStage eGFR I >90 II 60-89 III 30-59 IV 15-29 V <15 or dialysisAGE(years) AVERAGE GFR 50-59 93 ml/min/1.73 square metersNote:This result is normalized to 1.73 square meter body surface area. Height and weight are not factored.Performed By: #### L400.0202, L400.0302, L400.2200, L400.2500, L400.5100, L404.6500 ####[facility] ([facility])[address] [place], [place] [phone] Sandy, MDGlucose mass gupq201 mg/wAGaqo70-747ObihAshtabula County Medical CenterComment on above:Performed By: #### L400.0202, L400.0302, L400.2200, L400.2500, L400.5100, L404.6500 ####[facility] ([facility])[address], [place] [phone] Sandy, MDPotassium molar conc3.6 mmol/LNormal3.6-5.0[facility] CenterComment on above:Performed By: #### L400.0202, L400.0302, L400.2200, L400.2500, L400.5100, L404.6500 ####[facility] ([facility])[address], [place] [phone] Sandy, MDSodium molar apuk967 mmol/BYzkttc270-960TioaAshtabula County Medical CenterComment on above:Performed By: #### L400.0202, L400.0302, L400.2200, L400.2500, L400.5100, L404.6500 ####[facility] ([facility])[address] [place] [phone] Nivar, MDUrea nitrogen mass conc39 mg/dLHigh7-20[facility] CenterComment on above:Performed By: #### L400.0202, L400.0302, L400.2200, L400.2500, L400.5100, L404.6500 ####[facility] ([facility])[address], [place] [phone] Nivar, MDBasic Metabolic,Non-Fastingon 46-46-3479Oivmu gap 3 molar conc7 mmol/LNormal4-12[facility] CenterComment on above: Performed By: #### L400.0202, L400.0302, L400.2200, L400.2500, L400.5100, L404.6500 ####[facility] ([facility])[address], [place] [phone] Sandy, MDCalcium mass conc7.6 mg/dLLow8.8-10.5[facility] CenterComment on above:Performed By: #### L400.0202, L400.0302, L400.2200, L400.2500, L400.5100, L404.6500 ####[facility] ([facility])[address] [place] [phone] Sandy, MDChloride molar conc 118 mmol/KNwhs259-358KrrrAshtabula County Medical CenterComment on above:Performed By: #### L400.0202, L400.0302, L400.2200, L400.2500, L400.5100, L404.6500 ####Main Laboratory ([facility])[address] [place] [phone] Sandy, MDCO2 molar conc20 mmol/HCvo43-66IrvfAshtabula County Medical CenterComment on above: Performed By: #### L400.0202, L400.0302, L400.2200, L400.2500, L400.5100, L404.6500 ####Main Laboratory ([facility])[address] [place] [phone] Sandy, MDCreatinine mass conc1.54 mg/dLHigh0.70-1.30[facility] CenterComment on above:Performed By: #### L400.0202, L400.0302, L400.2200, L400.2500, L400.5100, L404.6500 ####Main Laboratory ([facility])[address] [place] [phone] Sandy, MDGFR/1.73 sq M predicted among non-blacks MDRD vol rate/area (S/P/Bld)57 mL/min/{1.73_m2}Low [facility] County Medical CenterComment on above:Result Comment: Chronic Kidney Disease stages by NKDFStage eGFR I >90 II 60-89 III 30-59 IV 15-29 V <15 or dialysisAGE(years) AVERAGE GFR 50-59 93 ml/min/1.73 square metersNote:This result is normalized to 1.73 square meter body surface area. Height and weight are not factored.Performed By: #### L400.0202, L400.0302, L400.2200, L400.2500, L400.5100, L404.6500 ####Main Laboratory ([facility])[address] [place] [phone] Nivar, MDGlucose mass mrgp648 mg/fIJspv49-267FhgxAshtabula County Medical CenterComment on above: Performed By: #### L400.0202, L400.0302, L400.2200, L400.2500, L400.5100, L404.6500 ####Main Laboratory ([facility])[address], [place] [phone] Nivar, MDPotassium molar conc3.4 mmol/LLow3.6-5.0[facility] Medical CenterComment on above:Performed By: #### L400.0202, L400.0302, L400.2200, L400.2500, L400.5100, L404.6500 ####Main Laboratory ([facility])[address] [phone] Nivar, MDSodium molar jetn262 mmol/AJpvmjb587-832NehsAshtabula County Medical CenterComment on above:Result Comment: Delta: 150 on 02/19/18-0414Performed By: #### L400.0202, L400.0302, L400.2200, L400.2500, L400.5100, L404.6500 ####Main Laboratory ([facility])[address], [place] [phone] Nivar, MDUrea nitrogen mass conc48 mg/dL High7-20[facility] Medical CenterComment on above:Performed By: #### L400.0202, L400.0302, L400.2200, L400.2500, L400.5100, L404.6500 ####Main Laboratory ([facility])[address], [place] [phone] Nivar, MDBasic Metabolic,Non-Fastingon 05-44-1258Nhxmz gap 3 molar conc11 mmol/LNormal 4-12[facility] Medical CenterComment on above:Performed By: #### L400.0202, L400.0302, L400.2200, L400.2500, L400.5100, L404.6500 ####[facility] ([facility])[address], [place] [phone] Sandy, MDCalcium mass conc8.4 mg/dLLow8.8-10.5[facility] CenterComment on above: Performed By: #### L400.0202, L400.0302, L400.2200, L400.2500, L400.5100, L404.6500 ####[facility] ([facility])[address], [place] [phone] Sandy, MDChloride molar qjwq156 mmol/KMhyc822-138DqovAshtabula County Medical CenterComment on above:Performed By: #### L400.0202, L400.0302, L400.2200, L400.2500, L400.5100, L404.6500 ####[facility] ([facility])[address], [place] [phone] Sandy, MDCO2 molar conc20 mmol/LAii88-58QvozAshtabula County Medical CenterComment on above:Performed By: #### L400.0202, L400.0302, L400.2200, L400.2500, L400.5100, L404.6500 ####[facility] ([facility])[address] [place] [phone] Sandy, MDCreatinine mass conc1.85 mg/dLHigh0.70-1.30[facility] CenterComment on above:Performed By: #### L400.0202, L400.0302, L400.2200, L400.2500, L400.5100, L404.6500 ####[facility] ([facility])[address], [place] [phone] Sandy, MDGFR/1.73 sq M predicted among non-blacks MDRD vol rate/area (S/P/Bld)46 mL/min/{1.73_m2}[facility] HospitalComment on above:Result Comment: Chronic Kidney Disease stages by NKDFStage eGFR I >90 II 60-89 III 30-59 IV 15-29 V <15 or dialysisAGE(years) AVERAGE GFR 50-59 93 ml/min/1.73 square metersNote:This result is normalized to 1.73 square meter body surface area. Height and weight are not factored.Performed By: #### L400.0202, L400.0302, L400.2200, L400.2500, L400.5100, L404.6500 ####[facility] ([facility])[address] [place] [phone] Sandy MDGlucose mass conc89 mg/hMEeifja07-239NmcaAshtabula County Medical CenterCommunson healthcare [facility] on above:Result Comment: *This reference range applies to fasting specimens only.Performed By: #### L400.0202, L400.0302, L400.2200, L400.2500, L400.5100, L404.6500 ####[facility] ([facility])[address], [place] [phone] Sandy, MDPotassium molar conc 4.1 mmol/LNormal3.6-5.0[facility] Medical CenterComment on above:Performed By: #### L400.0202, L400.0302, L400.2200, L400.2500, L400.5100, L404.6500 ####[facility] ([facility])[address] [place] [phone] Nivar, MDSodium molar tmyi557 mmol/OBwcw071-177ZccjAshtabula County Medical CenterComment on above:Result Comment: Delta: 145 on 02/18/18-0908Performed By: #### L400.0202, L400.0302, L400.2200, L400.2500, L400.5100, L404.6500 ####[facility] ([facility])[address] [place] [phone] Nivar, MDUrea nitrogen mass conc70 mg/dLHigh7-20[facility] CenterComment on above: Performed By: #### L400.0202, L400.0302, L400.2200, L400.2500, L400.5100, L404.6500 ####[facility] ([facility])[address] [place] [phone] Nivar, MDCult,Bloodon 78-30-0514Otfg,BloodSpecimen Description .BLOOD Special Requests R FOREARM 6ML Culture NO GROWTH 6 DAYS Report Status FINAL 02/19/2018[facility] HospitalComment on above:Performed By: #### ERTPF, CONNER, LIP, LIVP, TEGCR ####[facility] [address] [place], [place] 1005508 Cult,BloodSpecimen Description .BLOOD Special Requests RT HAND 1ML Culture NO GROWTH 6 DAYS Report Status FINAL 02/19/2018[facility] HospitalComment on above:Performed By: #### ERTPF, CONNER, LIP, LIVP, TEGCR ####[facility] [address] [place] [address] xr CHEST PORTABLEon 11-78-4612TW CHEST PORTABLEPROCEDURE: XR CHEST PORTABLECLINICAL INFORMATION: picc [...] 1:24 PMInterpr eted by:NADEGE Ellisigned by:Herminio Cardenas MD02/19/18Final resultNormal [facility] AllenBasic Metabolic,Non-Fastingon 58-90-6483Emczf gap 3 molar conc9 mmol/LNormal4-12[facility] CenterComment on above: Performed By: #### L400.0202, L400.0302, L400.2200, L400.2500, L400.5100, L404.6500 ####[facility] ([facility])[address], [place] [phone] Sandy, MDCalcium mass conc8.3 mg/dLLow8.8-10.5[facility] Medical CenterComment on above:Performed By: #### L400.0202, L400.0302, L400.2200, L400.2500, L400.5100, L404.6500 ####[facility] ([facility])[address], [place] [phone] Sandy, MDChloride molar conc 113 mmol/SCcji487-927ArdwAshtabula County Medical CenterComment on above:Performed By: #### L400.0202, L400.0302, L400.2200, L400.2500, L400.5100, L404.6500 ####[facility] ([facility])[address], [place] [phone] Sandy, MDCO2 molar conc23 mmol/GPllzxw38-57DqatAshtabula County Medical CenterComment on above: Performed By: #### L400.0202, L400.0302, L400.2200, L400.2500, L400.5100, L404.6500 ####[facility] ([facility])[address] [place] [phone] Sandy, MDCreatinine mass conc1.90 mg/dLHigh0.70-1.30[facility] Medical CenterComment on above:Performed By: #### L400.0202, L400.0302, L400.2200, L400.2500, L400.5100, L404.6500 ####[facility] ([facility])[address] [place], [place] [phone] Sandy, MDGFR/1.73 sq M predicted among non-blacks MDRD vol rate/area (S/P/Bld)45 mL/min/{1.73_m2}Low [facility] Medical CenterComment on above:Result Comment: Chronic Kidney Disease stages by NKDFStage eGFR I >90 II 60-89 III 30-59 IV 15-29 V <15 or dialysisAGE(years) AVERAGE GFR 50-59 93 ml/min/1.73 square metersNote:This result is normalized to 1.73 square meter body surface area. Height and weight are not factored.Performed By: #### L400.0202, L400.0302, L400.2200, L400.2500, L400.5100, L404.6500 ####[facility] ([facility])[address] [place] [phone] Sandy, MDGlucose mass fzkk091 mg/qGKkjj13-990IxfuAshtabula County Medical CenterComment on above: Performed By: #### L400.0202, L400.0302, L400.2200, L400.2500, L400.5100, L404.6500 ####[facility] ([facility])[address] [place] [phone] Nivar, MDPotassium molar conc3.6 mmol/LNormal3.6-5.0[facility] Medical CenterComment on above:Performed By: #### L400.0202, L400.0302, L400.2200, L400.2500, L400.5100, L404.6500 ####[facility] ([facility])[address], [place] [phone] Nivar, MDSodium molar lark172 mmol/LInvalid Interpretation Ymmd925-141PjfnAshtabula County Medical CenterCommunson healthcare [facility] on above:Result Comment: Delta: 139 on 02/17/18-0403Performed By: #### L400.0202, L400.0302, L400.2200, L400.2500, L400.5100, L404.6500 ####[facility] ([facility])[address], [place] [phone] Nivar, MDUrea nitrogen mass conc80 mg/dLHigh7-20[facility] Medical CenterComment on above: Performed By: #### L400.0202, L400.0302, L400.2200, L400.2500, L400.5100, L404.6500 ####[facility] ([facility])[address], [place] [phone] Nivar, MDHepatic Function Panel (Liver)on 02-18-2018 Albumin mass conc3.0 g/dLLow3.5-5.0[facility] Medical CenterComment on above: Performed By: #### L400.0202, L400.0302, L400.2200, L400.2500, L400.5100, L404.6500 ####[facility] ([facility])[address], [place] [phone] Sandy, MDAlk Vpzp540 IU/WYmky17-784WqntAshtabula County Medical CenterComment on above:Performed By: #### L400.0202, L400.0302, L400.2200, L400.2500, L400.5100, L404.6500 ####[facility] ([facility])[address], [place] [phone] Sandy, MDALT/SGPT52 IU/OHttr47-44DbbzAshtabula County Medical CenterComment on above:Performed By: #### L400.0202, L400.0302, L400.2200, L400.2500, L400.5100, L404.6500 ####[facility] ([facility])[address], [place] [phone] Sandy, MDAST/SGOT39 IU/L Yceeqg92-66SjbvAshtabula County Medical CenterComment on above:Performed By: #### L400.0202, L400.0302, L400.2200, L400.2500, L400.5100, L404.6500 ####[facility] ([facility])[address], [place] [phone] Carrillo Delgadoi,Direct0.3 mg/dLHigh0.1-0.2LSelect Medical Specialty Hospital - Columbus SouthComment on above: Performed By: #### L400.0202, L400.0302, L400.2200, L400.2500, L400.5100, L404.6500 ####[facility] ([facility])[address], [place] [phone] Sandy MDBili,Total0.3 mg/dLNormal0.2-1.0[facility] Medical CenterComment on above:Result Comment: Delta: 1.3 on 02/16/18-0409 Performed By: #### L400.0202, L400.0302, L400.2200, L400.2500, L400.5100, L404.6500 ####[facility] ([facility])[address], [place] [phone] Sandy, MDProtein mass conc7.9 g/dLNormal6.2-8.0[facility] Medical CenterComment on above:Performed By: #### L400.0202, L400.0302, L400.2200, L400.2500, L400.5100, L404.6500 ####[facility] ([facility])[address], [place] [phone] Sandy, MDIonized Calciumon 17-26-3185Mrnsdxs Calcium1.24 mmol/LNormal1.15-1.29[facility] Comment on above:Performed By: #### L400.0202, L400.0302, L400.2200, L400.2500, L400.5100, L404.6500 ####[facility] ([facility])[address], [place] [phone] Sandy, MDMagnesiumon 20-35-7123Tmicmicge mass conc2.0 mg/dLNormal1.8-2.5[facility] Medical CenterComment on above:Performed By: #### L400.0202, L400.0302, L400.2200, L400.2500, L400.5100, L404.6500 ####[facility] ([facility])[address], [place] [phone] Sandy, MDPhosphoruson 66-21-2571Mvwbqzgtd mass conc2.9 mg/dLNormal2.4-4.7[facility] CenterComment on above:Performed By: #### L400.0202, L400.0302, L400.2200, L400.2500, L400.5100, L404.6500 ####[facility] ([facility])[address], [place] [phone] Sandy, MDSputum culture/ smearon 82-88-2216QHQ Coag RelTime (Bld)Gram stain result Moderate Segmented [...] S Ticarcillin/K Clavulanate >64 R Trimethoprim/Sulfamethoxazole <=2/38 SNHCA Florida Largo HospitalComment on above:Performed By: #### L400.0202, L400.0302, L400.2200, L400.2500, L400.5100, L404.6500 ####[facility] ([facility])[address], [place] [phone] Sandy, MDBasic Metabolic,Non-Fastingon 87-08-7773Opcc nitrogen mass syfg146 mg/dLHigh7-20[facility] CenterComment on above: Performed By: #### L400.0152, L400.2200, L400.5100 ####[facility] ([facility])[address], [place] [phone] Sandy, MDAnion gap 3 molar conc12 mmol/LNormal4-12[facility] CenterComment on above: Performed By: #### L400.0152, L400.2200, L400.5100 ####[facility] ([facility])[address], [place] [phone] Sandy, MDCalcium mass conc7.9 mg/dLLow8.8-10.5[facility] CenterComment on above: Performed By: #### L400.0152, L400.2200, L400.5100 ####[facility] ([facility])[address], [place] [phone] Sandy, MDChloride molar ktie629 mmol/YSfxslr520-820BzheAshtabula County Medical CenterComment on above: Performed By: #### L400.0152, L400.2200, L400.5100 ####[facility] ([facility])[address], [place] [phone] Sandy, MDCO2 molar conc22 mmol/BSuowxl94-06YmtbAshtabula County Medical CenterComment on above:Performed By: #### L400.0152, L400.2200, L400.5100 ####[facility] ([facility])[address], [place] [phone] Sandy, MDCreatinine mass conc 2.19 mg/dLHigh0.70-1.30[facility] CenterComment on above:Performed By: #### L400.0152, L400.2200, L400.5100 ####[facility] ([facility])[address], [place] [phone] Sandy, MDGFR/1.73 sq M predicted among non-blacks MDRD vol rate/area (S/P/Bld)38 mL/min/{1.73_m2}Low [facility] Medical CenterComment on above:Result Comment: Chronic Kidney Disease stages by NKDFStage eGFR I >90 II 60-89 III 30-59 IV 15-29 V <15 or dialysisAGE(years) AVERAGE GFR 50-59 93 ml/min/1.73 square metersNote:This result is normalized to 1.73 square meter body surface area. Height and weight are not factored.Performed By: #### L400.0152, L400.2200, L400.5100 ####[facility] ([facility])[address], [place] [phone] Sandy, MDGlucose mass ifaw777 mg/eFOxip16-984EzzdAshtabula County Medical CenterComment on above:Performed By: #### L400.0152, L400.2200, L400.5100 ####[facility] ([facility])[address], [place] [phone] Sandy, MDPotassium molar conc3.2 mmol/LLow3.6-5.0[facility] Medical CenterComment on above:Performed By: #### L400.0152, L400.2200, L400.5100 ####[facility] ([facility])[address], [place] [phone] Sandy, MDSodium molar gzzd786 mmol/DCqykkx395-680LblyAshtabula County Medical CenterComment on above:Performed By: #### L400.0152, L400.2200, L400.5100 ####[facility] ([facility])[address], [place] [phone] Sandy, MDCult,Bloodon 87-16-6082Pckt,BloodSpecimen Description .BLOOD Special Requests LAC 0.02 ML Culture NO GROWTH 6 DAYS Report Status FINAL 02/17/2018NoMercy Health Fairfield HospitalComment on above:Performed By: #### ERTPF, CONNER, LIP, LIVP, TEGCR ####[facility] [address] [place] [address] Cult,BloodSpecimen Description .BLOOD Special Requests RAC 0.01 ML Culture NO GROWTH 6 DAYS Report Status FINAL 02/17/2018[facility] HospitalComment on above:Performed By: #### ERTPF, CONNER, LIP, LIVP, TEGCR ####[facility] [place] [address] MRSA screen, nasalon 51-80-3470CUVK screen, nasalNo growth of MRSA.[facility] HospitalComment on above:Performed By: #### L400.0202, L400.0302, L400.2200, L400.2500, L400.5100, L404.6500 ####[facility] ([facility])[address], [place] [phone] Sandy, MDMagnesiumon 71-45-5873Nqbqraxku mass conc2.1 mg/dLNormal1.8-2.5[facility] CenterComment on above:Performed By: #### L400.0152, L400.2200, L400.5100 ####[facility] ([facility])[address], [place] [phone] Sandy, MDPhosphoruson 58-82-3322Icfxgkoiv mass conc3.6 mg/dLNormal2.4-4.7[facility] CenterComment on above: Performed By: #### L400.0152, L400.2200, L400.5100 ####[facility] ([facility])[address], [place] [phone] Sandy, MDVRE screen, fecon 52-93-3524PRE screen, fecNo growth of Vancomycin Resistant Enterococcus (VRE).[facility] HospitalComment on above:Performed By: #### L400.0202, L400.0302, L400.2200, L400.2500, L400.5100, L404.6500 ####[facility] ([facility])[address], [place] [phone] Sandy, MDBasic Metabolic Panel,Fastingon 04-26-0925Wfjp nitrogen mass hyfr763 mg/dLHigh7-20[facility] CenterComment on above: Performed By: #### L400.0202, L400.0302, L400.2200, L400.2500, L400.5100, L404.6500 ####[facility] ([facility])[address], [place] [phone] Sandy, MDAnion gap 3 molar conc14 mmol/LHigh4-12[facility] CenterComment on above:Performed By: #### L400.0202, L400.0302, L400.2200, L400.2500, L400.5100, L404.6500 ####[facility] ([facility])[address], [place] [phone] Sandy, MDCalcium mass conc8.7 mg/dLLow8.8-10.5[facility] CenterComment on above:Performed By: #### L400.0202, L400.0302, L400.2200, L400.2500, L400.5100, L404.6500 ####[facility] ([facility])[address], [place] [phone] Sandy, MDChloride molar dlxp995 mmol/UZvrgiw255-133LhmjAshtabula County Medical CenterComment on above:Performed By: #### L400.0202, L400.0302, L400.2200, L400.2500, L400.5100, L404.6500 ####[facility] ([facility])[address], [place] [phone] Sandy, MDCO2 molar conc26 mmol/LOyweti56-31ZfdrAshtabula County Medical CenterComment on above:Performed By: #### L400.0202, L400.0302, L400.2200, L400.2500, L400.5100, L404.6500 ####[facility] ([facility])[address], [place] [phone] Sandy, MDCreatinine mass conc 2.40 mg/dLHigh0.70-1.30[facility] CenterComment on above:Performed By: #### L400.0202, L400.0302, L400.2200, L400.2500, L400.5100, L404.6500 ####[facility] ([facility])[address] [place] [phone] Nivar, MDGFR/1.73 sq M predicted among non-blacks MDRD vol rate/area (S/P/Bld)28 mL/min/{1.73_m2}LowAshtabula County Medical CenterComment on above:Result Comment: Chronic Kidney Disease stages by NKDFStage eGFR I >90 II 60-89 III 30-59 IV 15-29 V <15 or dialysisAGE(years) AVERAGE GFR 50-59 93 ml/min/1.73 square metersNote:This result is normalized to 1.73 square meter body surface area. Height and weight are not factored.Performed By: #### L400.0202, L400.0302, L400.2200, L400.2500, L400.5100, L404.6500 ####[facility] ([facility])[address] [place] [phone] Nivar, MDGlucose mass hsox350 mg/rJRxlb76-689TijgAshtabula County Medical CenterComment on above:Performed By: #### L400.0202, L400.0302, L400.2200, L400.2500, L400.5100, L404.6500 ####[facility] ([facility])[address], [place] [phone] Nivar, MDPotassium molar conc3.4 mmol/LLow3.6-5.0[facility] CenterComment on above:Performed By: #### L400.0202, L400.0302, L400.2200, L400.2500, L400.5100, L404.6500 ####[facility] ([facility])[address], [place] [phone] Sandy, MDSodium molar vhsw022 mmol/MMndzve646-210ZcstFranciscan Health Lafayette East SystemComment on above:Performed By: #### L400.0202, L400.0302, L400.2200, L400.2500, L400.5100, L404.6500 ####[facility] ([facility])[address], [place] [phone] Sandy, MDCBC with Differentialon 81-06-1428Vvm Baso Auyng361 /cmmNormal0-200[facility] CenterComment on above:Performed By: #### L100.0000 ####[facility] ([facility])[address], [place] [phone] Sadny, MDAbs Eos Nacma155 /cmmNormal0-500[facility] CenterComment on above: Performed By: #### L100.0000 ####[facility] ([facility])[address], [place] [phone] Sandy, MDAbs [place] Iecft4832 /cmmHigh0-800 [facility] CenterComment on above:Performed By: #### L100.0000 ####[facility] ([facility])[address], [place] [phone] Sandy, MDAbs Neut Ialqf41966 /tojUvjh3559-4839SfzfAshtabula County Medical CenterComment on above:Performed By: #### L100.0000 ####[facility] ([facility])[address], [place] [phone] Sandy, MDBasophils Auto #/vol (Bld)0.4 %Normal0-2LSelect Medical Specialty Hospital - Columbus SouthComment on above: Performed By: #### L100.0000 ####[facility] ([facility])[address], [place] [phone] Nivar, MDEOS-Auto Diff0.6 %Normal0-6[facility] CenterComment on above:Performed By: #### L100.0000 ####[facility] ([facility])[address], [place] [phone] Nivar, MDErythrocyte distribution width Auto Ratio (RBC)16.9 %High12.0-16.0[facility] CenterComment on above:Performed By: #### L100.0000 ####[facility] ([facility])[address], [place] [phone] Nivar, MDHematocrit Auto Volume Fraction (Bld)26.1 %Low40.0-49.0[facility] CenterComment on above:Performed By: #### L100.0000 ####[facility] ([facility])[address] [place], [place] [phone] Nivar, MD Hemoglobin mass conc (Bld)8.3 g/dLLow13.5-16.5[facility] CenterComment on above:Performed By: #### L100.0000 ####[facility] ([facility])[address], [place] [phone] Nivar, MDLymphocytes Auto #/vol (Bld)2000 /jyvLrnymh9813-5677ZtyrAshtabula County Medical CenterComment on above: Performed By: #### L100.0000 ####[facility] ([facility])[address], [place] [phone] Nivar, MDLymphocytes/100 WBC Auto (Bld)7.0 %Jxa28-31WtheAshtabula County Medical CenterComment on above:Performed By: #### L100.0000 ####[facility] ([facility])[address], [place] [phone] Nivar, MDMCH Auto Entitic mass (RBC)29.1 pgNormal 27.5-33.0[facility] CenterComment on above:Performed By: #### L100.0000 ####[facility] ([facility])[address], [place] [phone] Sandy, MDMCHC Auto mass conc (RBC)31.8 g/dLLow33.0-36.0 [facility] CenterComment on above:Performed By: #### L100.0000 ####[facility] ([facility])[address], [place] [phone] Sandy, MDMCV Auto Entitic volume (RBC)91.5 CU TPCQgmwgb89-17MinkAshtabula County Medical CenterComment on above:Performed By: #### L100.0000 ####[facility] ([facility])[address], [place] [phone] Sandy, MDMono- Auto Diff5.7 %Normal2-10[facility] CenterComment on above: Performed By: #### L100.0000 ####[facility] ([facility])[address], [place] [phone] Sandy, MDNeut-Auto Diff86.3 %Yziz73-38QutmAshtabula County Medical CenterComment on above:Performed By: #### L100.0000 ####[facility] ([facility])[address], [place] [phone] Sandy, MDNRBC-Auto0.1 /100 WBCNormal<1LSelect Medical Specialty Hospital - Columbus SouthComment on above: Performed By: #### L100.0000 ####[facility] ([facility])[address], [place] [phone] Sandy, MDPlatelets Auto #/vol (Bld)516 th/vmgPple498-155IvdvAshtabula County Medical CenterComment on above:Performed By: #### L100.0000 ####Main Laboratory ([facility])[address], [place] [phone] Sandy, MDRBC Auto #/vol (Bld)2.85 mil/cmmLow4.50-6.00 [facility] CenterComment on above:Performed By: #### L100.0000 ####Main Laboratory ([facility])[address], [place] [phone] Delgado, MDWBC Auto #/vol (Bld)29.1 th/cmmHigh4.4-10.5As[facility] County Medical CenterComment on above:Performed By: #### L100.0000 ####Main Laboratory ([facility])[address], [place] [phone] Nivar, MDHepatic Function Panel (Liver)on [id number] mass conc3.1 g/dLLow3.5-5.0As[facility] County Medical CenterComment on above:Performed By: #### L400.0202, L400.0302, L400.2200, L400.2500, L400.5100, L404.6500 ####Main Laboratory ([facility])[address], [place] [phone] Sandy, MDAlk Smpj829 IU/LHigh 41-137As[facility] County Medical CenterComment on above:Performed By: #### L400.0202, L400.0302, L400.2200, L400.2500, L400.5100, L404.6500 ####Main Laboratory ([facility])[address], [place] [phone] Sandy, MDALT/SGPT 80 IU/LOppp27-13ZayuAshtabula County Medical CenterComment on above:Performed By: #### L400.0202, L400.0302, L400.2200, L400.2500, L400.5100, L404.6500 ####Main Laboratory ([facility])[address], [place] [phone] Sandy, MDAST/SGOT43 IU/UGrll58-04SggcAshtabula County Medical CenterComment on above:Performed By: #### L400.0202, L400.0302, L400.2200, L400.2500, L400.5100, L404.6500 ####Main Laboratory ([facility])[address], [place] [phone] Sandy, MDBili,Direct0.6 mg/dLHigh0.1-0.2LSelect Medical Specialty Hospital - Columbus SouthComment on above:Performed By: #### L400.0202, L400.0302, L400.2200, L400.2500, L400.5100, L404.6500 ####Main Laboratory ([facility])[address], [place] [phone] Sandy, MDBili,Total1.3 mg/dL High0.2-1.0As[facility] County Medical CenterComment on above:Performed By: #### L400.0202, L400.0302, L400.2200, L400.2500, L400.5100, L404.6500 ####Main Laboratory ([facility])[address], [place] [phone] Sandy, MDProtein mass conc8.2 g/dLHigh6.2-8.0[facility] County Medical CenterComment on above:Performed By: #### L400.0202, L400.0302, L400.2200, L400.2500, L400.5100, L404.6500 ####Main Laboratory ([facility])[address], [place] [phone] Sandy, MDMagnesiumon 71-69-3604Avdtkclus mass conc2.3 mg/dLNormal1.8-2.5As[facility] County Medical CenterComment on above:Performed By: #### L400.0202, L400.0302, L400.2200, L400.2500, L400.5100, L404.6500 ####Main Laboratory ([facility])[address] [place] [phone] Sandy, MDPhosphoruson 12-65-9986Dvzdnytkt mass conc3.8 mg/dLNormal2.4-4.7As[facility] County Medical CenterComment on above:Performed By: #### L400.0202, L400.0302, L400.2200, L400.2500, L400.5100, L404.6500 ####Main Laboratory ([facility])[address] [place], [place] [phone] Sandy, MDPrealbuminon 34-66-2592Trawpssskz mass conc11.4 mg/dLLow16.0-38.0[facility] Comment on above:Performed By: #### L400.0202, L400.0302, L400.2200, L400.2500, L400.5100, L404.6500 ####Main Laboratory ([facility])[address] [place] [phone] Sandy MDTriglycerideson 50-26-9096Vosdrvtjzthj mass nknx027 mg/dLNormal<150As[facility] County Medical CenterComment on above:Performed By: #### L400.0202, L400.0302, L400.2200, L400.2500, L400.5100, L404.6500 ####Main Laboratory ([facility])[address] [place], [place] [phone] Sandy, MDXR ABDOMEN G TUBE PLACEMENTon 97-37-5488VP ABDOMEN G TUBE PLACEMENTPROCEDURE: XR ABDOMEN G [...] 3:03 PMInterpreted by:NADEGE Groveigned by:Elizabeth Barone MD02/16/18Final resultNormalSThe Hospitals of Providence East CampusBaharrison memorial hospital Metabolic Profon 00-42-7876Thva nitrogen mass lfue890 mg/dLCritically high6-20[facility] Comment on above:Result Comment: Previous Alert Value ReportedPerformed By: #### ERTPF, CONNER, LIP, LIVP, TEGCR ####Merc170 SystemsUdopdlangajs[address] [place] [address] (cont.)NormalBethesda North HospitalComment on above: Result Comment: Average GFR for 50-59 years old: 93 mL/min/1.73sq mChronic Kidney Disease: <60 mL/min/1.73sq mKidney failure: <15 mL/min/1.73sq meGFR calculated using average adult body mass. Additional eGFR calculator available at:http://www.[employer].Medical Simulation/multiple_crcl_2012.htmPerformed By: #### ERTPF, CONNER, LIP, LIVP, TEGCR ####[facility] Mrqwnyggzafi[address] [place] [address] Anion gap 3 molar conc19 mmol/LHigh9-17[facility] HospitalComment on above:Performed By: #### ERTPF, CONNER, LIP, LIVP, TEGCR ####[facility] Wjnjysjqobon2942 [place] [address] Calcium mass conc8.9 mg/dLNormal8.6-10.4[facility] HospitalComment on above:Performed By: #### ERTPF, CONNER, LIP, LIVP, TEGCR ####[facility] Hsyiieuzpywg[address]00 [place] [address] Chloride molar conc98 mmol/MJdyura20-738WyhhaKindred HospitalComment on above:Performed By: #### ERTPF, CONNER, LIP, LIVP, TEGCR ####[facility] Obsltsbqatjp5729 [place] [address] CO2 molar conc24 mmol/KXitjip37-56HqjijKindred HospitalComment on above:Performed By: #### ERTPF, CONNER, LIP, LIVP, TEGCR ####[facility] Zbnrxzmlahyg6044 [place] [address] Creatinine mass conc2.51 mg/dLHigh 0.70-1.20MerKindred HospitalComment on above:Performed By: #### ERTPF, CONNER, LIP, LIVP, TEGCR ####[facility] [address] [place] [address] GFR, Amer32 mL/minLow>60MerKindred HospitalComment on above:Performed By: #### ERTPF, CONNER, LIP, LIVP, TEGCR ####[facility] Dcmytugemgqe2891 [place] [address] GFR,non Amer27 mL/minLow>60MerKindred HospitalComment on above:Performed By: #### ERTPF, CONNER, LIP, LIVP, TEGCR ####[facility] Qhgazyvnmstm2274 [place] [address] Glucose mass chci660 mg/ePZesw00-24Lgnrz [facility] HospitalComment on above:Performed By: #### ERTPF, CONNER, LIP, LIVP, TEGCR ####[facility] Qzwphgftkyrn5945 [place] [address] Potassium molar conc3.3 mmol/LLow3.7-5.3[facility] HospitalComment on above:Performed By: #### ERTPF, CONNER, LIP, LIVP, TEGCR ####[address] [phone] molar bxvu630 mmol/YInvahq799-846FdbbcBethesda North HospitalComment on above:Performed By: #### ERTPF, CONNER, LIP, LIVP, TEGCR ####[address] [phone]/CRE Ratio NOT REPORTEDNormal9-20[facility] HospitalComment on above:Performed By: #### ERTPF, CONNER, LIP, LIVP, TEGCR ####[address] [phone]:NOT REPORTEDNormalBethesda North HospitalComment on above:Performed By: #### ERTPF, CONNER, LIP, LIVP, TEGCR ####[place], [place] [phone])[phone] 82-49-1856Nzvmjkxcqve distribution width Auto Ratio (RBC)16.5 %High11.8-14.4 [facility] HospitalComment on above:Performed By: #### ERTPF, CONNER, LIP, LIVP, TEGCR ####[address] [address] Hematocrit Auto Volume Fraction (Bld)27.4 %Low40.7-50.3MRiverside Community HospitalComment on above:Performed By: #### ERTPF, CONNER, LIP, LIVP, TEGCR ####[address] [address] Hemoglobin mass conc (Bld)8.6 g/dLLow13.0-17.0[facility] Comment on above:Performed By: #### ERTPF, CONNER, LIP, LIVP, TEGCR ####[address] [address] MCH Auto Entitic mass (RBC)29.1 rnHxmivx06.2-33.5[facility] HospitalComment on above: Performed By: #### ERTPF, CONNER, LIP, LIVP, TEGCR ####Sarith[facility] [address] [place] [address] MCHC Auto mass conc (RBC)31.4 g/dLNormal 28.4-34.8[facility] HospitalComment on above:Performed By: #### ERTPF, CONNER, LIP, LIVP, TEGCR ####[facility] Amepaumkq[address] [place] [address] MCV Auto Entitic volume (RBC)92.6 xOCevvzu35.6-102.9[facility] HospitalComment on above:Performed By: #### ERTPF, CONNER, LIP, LIVP, TEGCR ####[facility] [address]rvrcmbcwj[address] [place] [address] NRBC Automated0.1 per 100 WBCHigh0.0[facility] HospitalComment on above: Performed By: #### ERTPF, CONNER, LIP, LIVP, TEGCR ####[facility] Bmnlnwyz[address] [place] [address] Platelet mean volume Auto Entitic volume (Bld)12.4 fLNormal8.1-13.5[facility] HospitalComment on above: Performed By: #### ERTPF, CONNER, LIP, LIVP, TEGCR ####[place] [address] Platelets Auto #/vol (Bld)533 10*3/uLHigh 138-453[facility] HospitalComment on above:Performed By: #### ERTPF, CONNER, LIP, LIVP, TEGCR ####[facility] Tspjvancsqrd[address] [place] [address] RBC Auto #/vol (Bld)2.96 10*6/uLLow4.21-5.77[facility] HospitalComment on above:Performed By: #### ERTPF, CONNER, LIP, LIVP, TEGCR ####Filomena [address] [place] [address] WBC Auto #/vol (Bld)28.7 10*3/uLHigh3.5-11.3Mohiohealth [facility] methodist hospitaly [facility] HospitalComment on above: Performed By: #### ERTPF, CONNER, LIP, LIVP, TEGCR ####[facility] [address]ro[address] [place] [address] Magnesiumon 99-51-5224Jfglsesxs mass conc 2.4 mg/dLNormal1.6-2.6MRiverside Community HospitalComment on above:Performed By: #### ERTPF, CONNER, LIP, LIVP, TEGCR ####[facility] [address] [place] [address] Phosphorus, Inorg.on 64-31-8671Ljyvelxhnj, Inorg.4.3 mg/dLNormal2.5-4.5[facility] HospitalComment on above: Performed By: #### ERTPF, CONNER, LIP, LIVP, TEGCR ####[facility] [address] [place] [address] Basic Metabolic Profon 51-14-9363Vhld nitrogen mass ucti357 mg/dLCritically high6-20[facility] Comment on above:Performed By: #### ERTPF, CONNER, LIP, LIVP, TEGCR ####Sarithay Lpelwxjpzghg8503 [place] [address] (cont.)NormalBethesda North HospitalComment on above:Result Comment: Average GFR for 50-59 years old: 93 mL/min/1.73sq mChronic Kidney Disease: <60 mL/min/1.73sq mKidney failure: <15 mL/min/1.73sq meGFR calculated using average adult body mass. Ad ditional eGFR calculator available at:http://www.[employer]/multiple_crcl_2012.htmPerformed By: #### ERTPF, CONNER, LIP, LIVP, TEGCR ####[facility] Bhpvhfmvaqnk75[address] [place] [address] Anion gap 3 molar conc20 mmol/LHigh9-17[facility] HospitalComment on above:Performed By: #### ERTPF, CONNER, LIP, LIVP, TEGCR ####[facility] Jakaquetessj5794 [place] [address] Calcium mass conc9.0 mg/dLNormal8.6-10.4[facility] HospitalComment on above:Performed By: #### ERTPF, CONNER, LIP, LIVP, TEGCR ####[facility] Sosublusgnxy2361 [place] [address] Chloride molar conc93 mmol/UYey25-695CvicxBethesda North HospitalComment on above:Performed By: #### ERTPF, CONNER, LIP, LIVP, TEGCR ####[facility] Qqwtrbcqbimm2491 [place] [address] UX4 molar conc24 mmol/GStajuu69-04ZzxegBethesda North HospitalComment on above: Performed By: #### ERTPF, CONNER, LIP, LIVP, TEGCR ####[facility] Ytgxpdqdsddn0361 [place] [address] Creatinine mass conc2.97 mg/dLHigh 0.70-1.20[facility] HospitalComment on above:Performed By: #### ERTPF, CONNER, LIP, LIVP, TEGCR ####[facility] Vidppfmxhdbk25[address] [place] [address] GFR, Amer27 mL/minLow>60MerKindred HospitalComment on above:Performed By: #### ERTPF, CONNER, LIP, LIVP, TEGCR ####[facility] Ufoebiqsnlrb0288 [place] [address] GFR,non Amer22 mL/minLow>60[facility] HospitalComment on above:Performed By: #### ERTPF, CONNER, LIP, LIVP, TEGCR ####[facility] [address]lm[address] [place] [address] Glucose mass ktfg835 mg/rMKans34-69Xbupg [facility] HospitalComment on above:Performed By: #### ERTPF, CONNER, LIP, LIVP, TEGCR ####[address] [address] Potassium molar conc3.7 mmol/LNormal3.7-5.3[facility] HospitalComment on above:Performed By: #### ERTPF, CONNER, LIP, LIVP, TEGCR ####[facility] Qaqsxiz[address]uzsc[address] [place] [address] Sodium molar oclc876 mmol/DAopqte317-595PwjwnBethesda North HospitalComment on above:Performed By: #### ERTPF, CONNER, LIP, LIVP, TEGCR ####[address] [address] BUN/CRE RatioNOT REPORTEDNormal9-20[facility] HospitalComment on above:Performed By: #### ERTPF, CONNER, LIP, LIVP, TEGCR ####[address] [address] Staging:NOT REPORTEDNormalMerKindred HospitalComment on above:Performed By: #### ERTPF, CONNER, LIP, LIVP, TEGCR ####[address] [address] CBCon 67-89-4338Dtwmtcauzpn distribution width Auto Ratio (RBC)16.2 %High11.8-14.4 [facility] HospitalComment on above:Performed By: #### ERTPF, CONNER, LIP, LIVP, TEGCR ####[place] [address] [place] 43[address] [phone] Auto Volume Fraction (Bld)34.2 %Low40.7-50.3MRiverside Community HospitalComment on above:Performed By: #### ERTPF, CONNER, LIP, LIVP, TEGCR ####[address] [address] Hemoglobin mass conc (Bld)11.2 g/dLLow13.0-17.0[facility] Comment on above:Performed By: #### ERTPF, CONNER, LIP, LIVP, TEGCR ####[address] [address] MCH Auto Entitic mass (RBC)29.2 vyZvjaox14.2-33.5[facility] HospitalComment on above: Performed By: #### ERTPF, CONNER, LIP, LIVP, TEGCR ####[address] [address] MCHC Auto mass conc (RBC)32.7 g/dLNormal 28.4-34.8[facility] HospitalComment on above:Performed By: #### ERTPF, CONNER, LIP, LIVP, TEGCR ####[address] [address] MCV Auto Entitic volume (RBC)89.3 vVQcqhll21.6-102.9[facility] HospitalComment on above:Performed By: #### ERTPF, CONNER, LIP, LIVP, TEGCR ####[address] [address] NRBC Automated0.3 per 100 WBCHigh0.0[facility] HospitalComment on above: Performed By: #### ERTPF, CONNER, LIP, LIVP, TEGCR ####[facility] [address]xrcodkcfitr[address] [place] [address] Platelet mean volume Auto Entitic volume (Bld)11.4 fLNormal8.1-13.5[facility] HospitalComment on above: Performed By: #### ERTPF, CONNER, LIP, LIVP, TEGCR ####[facility] [address]fdsdzqfiwa[address] [place] [address] Platelets Auto #/vol (Bld)145 10*3/uL Cxinle824-807LonvsBethesda North HospitalComment on above:Performed By: #### ERTPF, CONNER, LIP, LIVP, TEGCR ####[address] [address] RBC Auto #/vol (Bld)3.83 10*6/uLLow4.21-5.77[facility] HospitalComment on above:Performed By: #### ERTPF, CONNER, LIP, LIVP, TEGCR ####[facility] [address] [place] [address] WBC Auto #/vol (Bld)19.5 10*3/uLHigh3.5-11.3MRiverside Community HospitalComment on above: Performed By: #### ERTPF, CONNER, LIP, LIVP, TEGCR ####[facility] [address] [place], [place] [id number])[phone] RETROPERITONEAL LIMITEDon [id number] RETROPERITONEAL LIMITEDEXAMINATION:RETROPERITONEAL ULTRASOUND OF THE KIDNEYS AND URINARY WDFLEJU6002/14/2018COMPARISON:02/13/2018 CTHISTORY:ORDERING SYSTEM PROVIDED HISTORY: RENAL FAILURE, ACUTE (KIDNEY INJURY)FINDINGS:Kidneys:The right kidney measures 11.3 cm in length and the left kidney measures 12.2cm in length.Mild right renal pelviectasis, better seen on recent CT. No perinephriccollection bilaterally.Bladder:Not imagedIMPRESSION: Mild right renal pelviectasis. Please refer to CT performed 1 day prior.Interpretedby:NADEGE Hoodigned by:Jonathan Jones MD02/14/18Final resultNoMercy Health Fairfield HospitalXR CHEST PORTABLEon [id number] CHEST PORTABLEEXAMINATION:SINGLE XRAY VIEW OF THE CHEST02/14/2018 [...] changes.3. Small left pleural effusion.Interpreted by:NADEGE Wrightigned by:Vanna Guzmán MD02/14/18Final resultNoMercy Health Fairfield HospitalBasic Metabolic Profon 48-79-5385Xbse nitrogen mass hghs622 mg/dL Critically high6-20[facility] HospitalComment on above:Performed By: #### ERTPF, CONNER, LIP, LIVP, TEGCR ####[employer] Tz[address]apxefvqj4[address] [place] [address] (cont.)NormalBethesda North Hospital Comment on above:Result Comment: Average GFR for 50-59 years old: 93 mL/min/1.73sq mChronic Kidney Disease: <60 mL/min/1.73sq mKidney failure: <15 mL/min/1.73sq meGFR calculated using average adult body mass. Additional eGFR calculator available at:http://www.[employer].com/multiple_crcl_2012.htmPerformed By: #### ERTPF, CONNER, LIP, LIVP, TEGCR ####[facility] [address] [place] [address] Anion gap 3 molar conc16 mmol/LNormal9-17[facility] HospitalComment on above:Performed By: #### ERTPF, CONNER, LIP, LIVP, TEGCR ####[facility] [address]agajeogs[address] [place] [address] Calcium mass conc8.7 mg/dLNormal8.6-10.4[facility] HospitalComment on above:Performed By: #### ERTPF, CONNER, LIP, LIVP, TEGCR ####[facility] [address]synedvhi24[address] [place] [address] Chloride molar conc98 mmol/UVetgqc88-203HemzoBethesda North HospitalComment on above:Performed By: #### ERTPF, CONNER, LIP, LIVP, TEGCR ####[facility] Pxkkxdxkuqla0452 [place] [address] SS4 molar conc20 mmol/FAigtfd23-49OnfedBethesda North HospitalComment on above:Performed By: #### ERTPF, CONNER, LIP, LIVP, TEGCR ####[facility] [address]uis[address]zhlw4[address] [place] [address] Creatinine mass conc3.44 mg/dLHigh0.70-1.20[facility] HospitalComment on above:Performed By: #### ERTPF, CONNER, LIP, LIVP, TEGCR ####[facility] [address]un[address] [place] [id number] GFR, Amer22 mL/minLow>60MerKindred HospitalComment on above:Performed By: #### ERTPF, CONNER, LIP, LIVP, TEGCR ####[facility] Txbnivbpqloh5625 [place] [address] GFR,non Amer19 mL/minLow>60MerKindred HospitalComment on above:Performed By: #### ERTPF, CONNER, LIP, LIVP, TEGCR ####[facility] [address] [place] [address] Glucose mass nhev537 mg/pZQkaf51-34Gbjek [facility] HospitalComment on above:Performed By: #### ERTPF, CONNER, LIP, LIVP, TEGCR ####[address] [address] Potassium molar conc4.5 mmol/LNormal3.7-5.3[facility] hospitaly [facility] Comment on above:Performed By: #### ERTPF, CONNER, LIP, LIVP, TEGCR ####[facility] [address]fs[address] [place] [address] Sodium molar wyly561 mmol/WZic124-041DdwsxKindred HospitalComment on above:Performed By: #### ERTPF, CONNER, LIP, LIVP, TEGCR ####[address] [address] BUN/CRE RatioNOT REPORTEDNormal9-20[facility] HospitalComment on above:Performed By: #### ERTPF, CONNER, LIP, LIVP, TEGCR ####[facility] [address] [place] [address] Staging:NOT REPORTEDNormalBethesda North HospitalComment on above:Performed By: #### ERTPF, CONNER, LIP, LIVP, TEGCR ####[address] [address] Brain Natri. Peptideon 10-45-7871Dkynfjocjwe peptide B mass conc (Bld)769 pg/mLHigh<300MerKindred HospitalComment on above: Result Comment: Pro-BNP results cannot be compared to BNP results.Performed By: #### ERTPF, CONNER, LIP, LIVP, TEGCR ####[facility] [address] [place] [address] [phone] peptide B mass conc (Bld)NormalMerKindred HospitalComment on above:Result Comment: Pro-BNP Reference Range:Rule Out: <300Grey Zone: Age <50 300-450 Age 50-75 300-900 Age >75 300- 1800Usually represents mild to moderate HF but other cardiopulmonary causes evelyne ot be ruled out.Rule In: Age <50 >450 Age 50-75 >900 Age >75 >1800Performed By: #### ERTPF, CONNER, LIP, LIVP, TEGCR ####[place], [place] [phone] 29-06-9406Ntxsjifixbx distribution width Auto Ratio (RBC)16.5 %High11.8-14.4[facility] HospitalComment on above: Performed By: #### ERTPF, CONNER, LIP, LIVP, TEGCR ####[facility] [address]ks[address] [place] [address] Hematocrit Auto Volume Fraction (Bld)24.7 %Low40.7-50.3[facility] HospitalComment on above:Performed By: #### ERTPF, CONNER, LIP, LIVP, TEGCR ####[facility] [address] [place] [address] Hemoglobin mass conc (Bld)8.1 g/dLLow13.0-17.0[facility] HospitalComment on above:Performed By: #### ERTPF, CONNER, LIP, LIVP, TEGCR ####[facility] [address] [place] [phone] Auto Entitic mass (RBC)29.7 lxVljdbl97.2-33.5[facility] Comment on above:Performed By: #### ERTPF, CONNER, LIP, LIVP, TEGCR ####[facility] [address] [place] [address] MCHC Auto mass conc (RBC)32.8 g/mDBmvfkr35.4-34.8[facility] HospitalComment on above: Performed By: #### ERTPF, CONNER, LIP, LIVP, TEGCR ####[place] [address] MCV Auto Entitic volume (RBC)90.5 fL Xjzyfp88.6-102.9[facility] HospitalComment on above:Performed By: #### ERTPF, CONNER, LIP, LIVP, TEGCR ####[place] [address] NRBC Automated0.3 per 100 WBCHigh0.0Bet[facility] North HospitalComment on above:Performed By: #### ERTPF, CONNER, LIP, LIVP, TEGCR ####[place] [address] Platelet mean volume Auto Entitic volume (Bld)11.9 fLNormal8.1-13.5[facility] HospitalComment on above:Performed By: #### ERTPF, CONNER, LIP, LIVP, TEGCR ####[place] [address] Platelets Auto #/vol (Bld)490 10*3/qYTwla900-183VryzeBethesda North HospitalComment on above: Performed By: #### ERTPF, CONNER, LIP, LIVP, TEGCR ####[place] [address] RBC Auto #/vol (Bld)2.73 10*6/uLLow 4.21-5.77[facility] HospitalComment on above:Performed By: #### ERTPF, CONNER, LIP, LIVP, TEGCR ####[employer] [address]qlwsctsjywc6[address] [place] [address] WBC Auto #/vol (Bld)25.7 10*3/uLHigh3.5-11.3[facility] HospitalComment on above:Performed By: #### ERTPF, CONNER, LIP, LIVP, TEGCR ####[employer] [place] [address] CT ABDOMEN PELVIS WO CONTRASTon [id number] ABDOMEN PELVIS WO CONTRASTEXAMINATION:CT OF THE ABDOMEN [...] gas collections. There is compression deformity at eiuF4mnyjoszcn body.IMPRESSION: 1. Fluid-filled dilated small bowel loops [...] at least 01/19/2018Interpreted by:NADEGE Vidaligned by:MD Allie02/13/18Final resultNormalBethesda North HospitalXR ABDOMEN (KUB) (SINGLE AP VIEW)on [id number] ABDOMEN (KUB) (SINGLE AP VIEW)EXAMINATION:SINGLE SUPINE XRAY VIEW(S) OF THE WOPZANU2602/13/2018 7:15 amHISTORY:ORDERING SYSTEM PROVIDED HISTORY: abd painTECHNOLOGIST PROVIDED HISTORY:abd painFINDINGS:Air-filled, mildly dilated loops of small and large bowel are identified.Catheter projects over the right lower hemiabdomen. Peg tube in place.Osseous structures grossly intact.IMPRESSION: The appearance of ileus in the gastrointestinal tract has not significantlychanged compared to 02/10/2018Interpreted by:NADEGE Vidaligned by:Anjel Hernandez MD02/13/18Final resultNormalBethesda North Hospital Basic Metabolic Profon 02-12-2018(cont.)NormalBethesda North Hospital Comment on above:Result Comment: Average GFR for 50-59 years old: 93 mL/min/1.73sq mChronic Kidney Disease: <60 mL/min/1.73sq mKidney failure: <15 mL/min/1.73sq meGFR calculated using average adult body mass. Additional eGFR calculator available at:http://www.[employer].Medical [employer]ulation/multiple_crcl_2012.htmPerformed By: #### ERTPF, CONNER, LIP, LIVP, TEGCR ####[employer] [place], [place] [id number] Anion gap 3 molar conc16 mmol/LNormal9-17[facility] North HospitalComment on above:Performed By: #### ERTPF, CONNER, LIP, LIVP, TEGCR ####[employer] [place], [place] 3066208 Calcium mass conc8.9 mg/dLNormal8.6-10.4[facility] HospitalComment on above:Performed By: #### ERTPF, CONNER, LIP, LIVP, TEGCR ####[facility] [address]tcyfxsebhxs7[address] [place] [address] Chloride molar conc96 mmol/MSqr44-774OgjrzKindred HospitalComment on above:Performed By: #### ERTPF, CONNER, LIP, LIVP, TEGCR ####[facility] Rvsyqsbfqacb5612 [place] [address] PT2 molar conc19 mmol/VTll85-48Uapsw [facility] HospitalComment on above:Performed By: #### ERTPF, CONNER, LIP, LIVP, TEGCR ####[facility] Ysysdkberkvm[address]75 [place] [address] Creatinine mass conc 3.22 mg/dLHigh0.70-1.20[facility] HospitalComment on above: Performed By: #### ERTPF, CONNER, LIP, LIVP, TEGCR ####[facility] [address]es[address]jsfrg[address] [place] [address] GFR, Amer24 mL/minLow>60[facility] HospitalComment on above:Performed By: #### ERTPF, CONNER, LIP, LIVP, TEGCR ####[facility] [address] [place] [address] GFR,non Amer20 mL/minLow>60[facility] HospitalComment on above: Performed By: #### ERTPF, CONNER, LIP, LIVP, TEGCR ####[facility] [address]ct[address] [place] [address] Glucose mass tiwb715 mg/iXObfa62-84Dlnuc [facility] HospitalComment on above:Performed By: #### ERTPF, CONNER, LIP, LIVP, TEGCR ####[facility] [address] [place] [address] Potassium molar conc4.1 mmol/LNormal3.7-5.3[facility] Comment on above:Performed By: #### ERTPF, CONNER, LIP, LIVP, TEGCR ####[facility] [address] [place] [address] Sodium molar wmzm683 mmol/PRms509-525VegyaBethesda North HospitalComment on above:Performed By: #### ERTPF, CONNER, LIP, LIVP, TEGCR ####[facility] [address] [place] [address] Urea nitrogen mass conc89 mg/dLHigh6-20[facility] HospitalComment on above:Performed By: #### ERTPF, CONNER, LIP, LIVP, TEGCR ####[facility] [address] [place] [address] BUN/CRE Ratio NOT REPORTEDNormal9-20[facility] HospitalComment on above:Performed By: #### ERTPF, CONNER, LIP, LIVP, TEGCR ####[facility] [address] [place] [address] Staging:NOT REPORTEDNormalBethesda North HospitalComment on above:Performed By: #### ERTPF, CONNER, LIP, LIVP, TEGCR ####[facility] [address] [place] [address] Brain Natri. Peptideon [id number] peptide B mass conc (Bld)NormalBethesda North HospitalComment on above:Result Comment: Pro-BNP Reference Range:Rule Out: <300Grey Zone: Age <50 300-450 Age 50-75 300-900 Age >75 300-1800Usually represents mild to moderate HF but other cardiopulmonary causes cannot be ruled out.Rule In: Age <50 >450 Age 50-75 >900 Age >75 >1800Performed By: #### ERTPF, CONNER, LIP, LIVP, TEGCR ####[facility] Mgfmtvolkxhw[address] [place] [address] Natriuretic peptide B mass conc (Bld)648 pg/mLHigh<300Bet[facility] North HospitalComment on above:Result Comment: Pro-BNP results cannot be compared to BNP results.Performed By: #### ERTPF, CONNER, LIP, LIVP, TEGCR ####[place], [place] [phone] [phone] distribution width Auto Ratio (RBC)16.7 %High11.8-14.4 [facility] HospitalComment on above:Performed By: #### ERTPF, CONNER, LIP, LIVP, TEGCR ####[place] [address] [phone] Auto Volume Fraction (Bld)26.2 %Low40.7-50.3MRiverside Community HospitalComment on above:Performed By: #### ERTPF, CONNER, LIP, LIVP, TEGCR ####[address] [address] Hemoglobin mass conc (Bld)8.4 g/dLLow13.0-17.0[facility] Comment on above:Performed By: #### ERTPF, CONNER, LIP, LIVP, TEGCR ####[address] [address] MCH Auto Entitic mass (RBC)29.5 akJxijkx76.2-33.5MerKindred HospitalComment on above: Performed By: #### ERTPF, CONNER, LIP, LIVP, TEGCR ####[address] [address] MCHC Auto mass conc (RBC)32.1 g/dLNormal 28.4-34.8[facility] HospitalComment on above:Performed By: #### ERTPF, CONNER, LIP, LIVP, TEGCR ####[address] [address] MCV Auto Entitic volume (RBC)91.9 sHZafjsl65.6-102.9[facility] HospitalComment on above:Performed By: #### ERTPF, CONNER, LIP, LIVP, TEGCR ####[place] [address] NRBC Automated0.3 per 100 WBCHigh0.0Bet[facility] North HospitalComment on above: Performed By: #### ERTPF, CONNER, LIP, LIVP, TEGCR ####[place] [address] Platelet mean volume Auto Entitic volume (Bld)11.8 fLNormal8.1-13.5[facility] HospitalComment on above: Performed By: #### ERTPF, CONNER, LIP, LIVP, TEGCR ####[place] [address] Platelets Auto #/vol (Bld)507 10*3/uLHigh 138-453[facility] North HospitalComment on above:Performed By: #### ERTPF, CONNER, LIP, LIVP, TEGCR ####[place] [address] RBC Auto #/vol (Bld)2.85 10*6/uLLow4.21-5.77[facility] HospitalComment on above:Performed By: #### ERTPF, CONNER, LIP, LIVP, TEGCR ####[address] [address] WBC Auto #/vol (Bld)25.9 10*3/uLHigh3.5-11.3MRiverside Community HospitalComment on above: Performed By: #### ERTPF, CONNER, LIP, LIVP, TEGCR ####[address], [place] [address] Magnesiumon 63-68-5136Tbtuwrvyi mass conc 2.4 mg/dLNormal1.6-2.6[facility] HospitalComment on above:Performed By: #### ERTPF, CONNER, LIP, LIVP, TEGCR ####[facility] Tpsz[address]trfvoj[address] [place], [place] [address] Phosphorus, Inorg.on 30-61-6186Qzbynublfs, Inorg.5.1 mg/dLHigh2.5-4.5[facility] HospitalComment on above: Performed By: #### ERTPF, CONNER, LIP, LIVP, TEGCR ####[facility] [address]og[address]wwlgvm[address] [place], [place] [id number] XR CHEST PORTABLEon [id number] CHEST PORTABLEEXAMINATION:SINGLE XRAY VIEW OF THE CHEST02/12/2018 [...] the lungs.Interpreted by:NADEGE Burksigned by:Fidel Marley MD02/12/18inal resultNormalMerKindred HospitalBasic Metabolic Prof on 02-11-2018(cont.)NormalMercy [facility] Valley Community HospitalComment on above: Result Comment: Average GFR for 50-59 years old: 93 mL/min/1.73sq mChronic Kidney Disease: <60 mL/min/1.73sq mKidney failure: <15 mL/min/1.73sq meGFR calculated using average adult body mass. Additional eGFR calculator available at:http://www.[employer].Medical Simulation/multiple_crcl_2012.htmPerformed By: #### ERTPF, CONNER, LIP, LIVP, TEGCR ####[facility] Zzbhpywgjpge6556 [place] [address] Anion gap 3 molar conc19 mmol/LHigh9-17[facility] HospitalComment on above:Performed By: #### ERTPF, CONNER, LIP, LIVP, TEGCR ####[facility] I[address] [place] [address] Calcium mass conc8.8 mg/dLNormal8.6-10.4[facility] North HospitalComment on above:Performed By: #### ERTPF, CONNER, LIP, LIVP, TEGCR ####[facility] Msbukaendzmm9[address] [place] [address] Chloride molar dtbe357 mmol/AYnmuom58-563HdfuzBethesda North HospitalComment on above:Performed By: #### ERTPF, CONNER, LIP, LIVP, TEGCR ####[place] [address] [place] [address] CO2 molar conc17 mmol/SPie05-24NeakxBethesda North HospitalComment on above: Performed By: #### ERTPF, CONNER, LIP, LIVP, TEGCR ####[facility] Mdqchypqkhbh4949 [place] [address] Creatinine mass conc2.91 mg/dLHigh 0.70-1.20[facility] HospitalComment on above:Performed By: #### ERTPF, CONNER, LIP, LIVP, TEGCR ####[facility] Gprbnwbhzgbu8528 [place] [address] GFR, Amer27 mL/minLow>60[facility] HospitalComment on above:Performed By: #### ERTPF, CONNER, LIP, LIVP, TEGCR ####[facility] [address] [place] [address] GFR,non Amer22 mL/minLow>60[facility] HospitalComment on above:Performed By: #### ERTPF, CONNER, LIP, LIVP, TEGCR ####[facility] F[address] [place] [address] Glucose mass nkiv978 mg/yUGadg90-73Vaser [facility] HospitalComment on above:Performed By: #### ERTPF, CONNER, LIP, LIVP, TEGCR ####[place] [address] Potassium molar conc3.4 mmol/LLow3.7-5.3[facility] HospitalComment on above:Performed By: #### ERTPF, CONNER, LIP, LIVP, TEGCR ####[address] [address] Sodium molar tafn841 mmol/PTcqwmj739-320DukgbKindred HospitalComment on above:Performed By: #### ERTPF, CONNER, LIP, LIVP, TEGCR ####[address] [address] Urea nitrogen mass conc75 mg/dLHigh6-20MerKindred HospitalComment on above: Performed By: #### ERTPF, CONNER, LIP, LIVP, TEGCR ####[place] [address] BUN/CRE RatioNOT REPORTEDNormal9-20MerKindred HospitalComment on above:Performed By: #### ERTPF, CONNER, LIP, LIVP, TEGCR ####[facility] [address] [place] [address] Staging:NOT REPORTEDNormalBethesda North HospitalComment on above: Performed By: #### ERTPF, CONNER, LIP, LIVP, TEGCR ####[address]ith[address] [place] [address] Brain Natri. Peptideon 02-11-2018 Natriuretic peptide B mass conc (Bld)NormalBethesda North Hospital Comment on above:Result Comment: Pro-BNP Reference Range:Rule Out: <300Grey Zone: Age <50 300-450 Age 50-75 300-900 Age >75 300-1800Usually represents mild to moderate HF but other cardiopulmonary causes cannot be ruled out.Rule In: Age <50 >450 Age 50-75 >900 Age >75 >1800Performed By: #### ERTPF, CONNER, LIP, LIVP, TEGCR ####[facility] [place] [address] Natriuretic peptide B mass conc (Bld)1407 pg/mLHigh<300[facility] HospitalComment on above:Result Comment: Pro-BNP results cannot be compared to BNP results.Performed By: #### ERTPF, CONNER, LIP, LIVP, TEGCR ####[facility] [address] [place] [address] CBCon 02-11-2018 Erythrocyte distribution width Auto Ratio (RBC)16.7 %High11.8-14.4[facility] HospitalComment on above:Performed By: #### ERTPF, CONNER, LIP, LIVP, TEGCR ####[facility] SystemsOojbrrucyhcq3519 [place] [address] Hematocrit Auto Volume Fraction (Bld)28.4 %Low40.7-50.3[facility]y [facility] HospitalComment on above:Performed By: #### ERTPF, CONNER, LIP, LIVP, TEGCR ####[employer] [facility] Ttqzpqbfkcbk8617 [place] [address] Hemoglobin mass conc (Bld)9.1 g/dLLow13.0-17.0[facility] HospitalComment on above:Performed By: #### ERTPF, CONNER, LIP, LIVP, TEGCR ####[facility] [address] [place] [address] MC Auto Entitic mass (RBC)29.3 pgNormal 25.2-33.5[facility] HospitalComment on above:Performed By: #### ERTPF, CONNER, LIP, LIVP, TEGCR ####[facility] [address]ngv[address] [place] [address] MCHC Auto mass conc (RBC)32.0 g/uUJjaizp32.4-34.8[facility] HospitalComment on above:Performed By: #### ERTPF, CONNER, LIP, LIVP, TEGCR ####[place] [address] MCV Auto Entitic volume (RBC)91.3 cLVnqibu24.6-102.9[facility] Comment on above:Performed By: #### ERTPF, CONNER, LIP, LIVP, TEGCR ####[place] [address] NRBC Automated0.3 per 100 WBCHigh0.0[facility] HospitalComment on above:Performed By: #### ERTPF, CONNER, LIP, LIVP, TEGCR ####[facility] [address] [place] [address] Platelet mean volume Auto Entitic volume (Bld)11.7 fLNormal 8.1-13.5[facility] HospitalComment on above:Performed By: #### ERTPF, CONNER, LIP, LIVP, TEGCR ####[place] [address] Platelets Auto #/vol (Bld)466 10*3/rDUrtk390-789QmhbxBethesda North HospitalComment on above:Performed By: #### ERTPF, CONNER, LIP, LIVP, TEGCR ####[facility] [address]artdf[address]wulb[address] [place] [address] RBC Auto #/vol (Bld)3.11 10*6/uLLow4.21-5.77[facility] HospitalComment on above:Performed By: #### ERTPF, CONNER, LIP, LIVP, TEGCR ####[facility] [address] [place] [address] WBC Auto #/vol (Bld)24.8 10*3/uLHigh3.5-11.3MRiverside Community HospitalComment on above:Performed By: #### ERTPF, CONNER, LIP, LIVP, TEGCR ####Filomena [address] [address] Triglycerideson 66-84-2764Lxameatwgosx mass conc 202 mg/dLHigh<150Bet[facility] HospitalComment on above:Result Comment: Triglyceride Guidelines: <150 Desirable 150-199 Borderline 200-499 High >499 Very high Based on AHA Guidelines for fasting triglyceride, February 2012. Performed By: #### ERTPF, CONNER, LIP, LIVP, TEGCR ####[facility] [address] [place] [address] [phone] Metabolic Profon 02-10-2018(cont.) NormalBethesda North HospitalComment on above:Result Comment: Average GFR for 50-59 years old: 93 mL/min/1.73sq mChronic Kidney Disease: <60 mL /min/1.73sq mKidney failure: <15 mL/min/1.73sq meGFR calculated using average adult body mass. Additional eGFR calculator available at:http://www.[employer].Medical Simulation/multiple_crcl_2012.htmPerformed By: #### ERTPF, CONNER, LIP, LIVP, TEGCR ####[facility] [address]wh[address] [place] [address] Anion gap 3 molar conc17 mmol/LNormal9-17[facility] HospitalComment on above:Performed By: #### ERTPF, CONNER, LIP, LIVP, TEGCR ####[address] [address] Calcium mass conc9.0 mg/dLNormal8.6-10.4[facility] HospitalComment on above: Performed By: #### ERTPF, CONNER, LIP, LIVP, TEGCR ####[address] [address] Chloride molar fndo606 mmol/JVagxux38-621 [facility] HospitalComment on above:Performed By: #### ERTPF, CONNER, LIP, LIVP, TEGCR ####[address] [address] BX4 molar conc19 mmol/AXrs92-50VhhowBethesda North Hospital Comment on above:Performed By: #### ERTPF, CONNER, LIP, LIVP, TEGCR ####[address] [address] Creatinine mass conc3.02 mg/dLHigh0.70-1.20[facility] HospitalComment on above:Performed By: #### ERTPF, CONNER, LIP, LIVP, TEGCR ####[facility] [address] [place] [address] GFR, Amer26 mL/minLow>60[facility] HospitalComment on above:Performed By: #### ERTPF, CONNER, LIP, LIVP, TEGCR ####[address] [address] GFR,non Amer22 mL/minLow>60[facility] HospitalComment on above: Performed By: #### ERTPF, CONNER, LIP, LIVP, TEGCR ####[facility] [address] [place] [address] Glucose mass wrcm087 mg/wANgik33-83Tuvvz [facility] HospitalComment on above:Performed By: #### ERTPF, CONNER, LIP, LIVP, TEGCR ####[address] [address] Potassium molar conc3.5 mmol/LLow3.7-5.3[facility] HospitalComment on above:Performed By: #### ERTPF, CONNER, LIP, LIVP, TEGCR ####[address] [address] Sodium molar gwkz430 mmol/KMotsuk690-165SegazBethesda North HospitalComment on above:Performed By: #### ERTPF, CONNER, LIP, LIVP, TEGCR ####[address] [address] Urea nitrogen mass conc71 mg/dLHigh6-20[facility] HospitalComment on above:Performed By: #### ERTPF, CONNER, LIP, LIVP, TEGCR ####[address] [address] BUN/CRE RatioNOT REPORTEDNormal9-20[facility] HospitalComment on above:Performed By: #### ERTPF, CONNER, LIP, LIVP, TEGCR ####[address] [address] Staging:NOT REPORTEDNormalBethesda North HospitalComment on above:Performed By: #### ERTPF, CONNER, LIP, LIVP, TEGCR ####[address] [address] Brain Natri. Peptideon 81-75-9089Hhftshpcmkr peptide B mass conc (Bld)NormalMerKindred HospitalComment on above:Result Comment: Pro-BNP Reference Range:Rule Out: <300Grey Zone: Age <50 300-450 Age 50-75 300-900 Age >75 300- 1800Usually represents mild to moderate HF but other cardiopulmonary causes evelyne ot be ruled out.Rule In: Age <50 >450 Age 50-75 >900 Age >75 >1800Performed By: #### ERTPF, CONNER, LIP, LIVP, TEGCR ####[address] [address] Natriuretic peptide B mass conc (Bld)1392 pg/mLHigh<300 [facility] HospitalComment on above:Result Comment: Pro-BNP results cannot be compared to BNP results.Performed By: #### ERTPF, CONNER, LIP, LIVP, TEGCR ####[address] [phone] 57-90-5398Yyaatakzoeh distribution width Auto Ratio (RBC)17.3 %High11.8-14.4 [facility] HospitalComment on above:Performed By: #### ERTPF, CONNER, LIP, LIVP, TEGCR ####[address] [address] [phone] Auto Volume Fraction (Bld)30.3 %Low40.7-50.3[facility]y [facility] HospitalComment on above:Performed By: #### ERTPF, CONNER, LIP, LIVP, TEGCR ####[address] [address] Hemoglobin mass conc (Bld)9.1 g/dLLow13.0-17.0[facility] Comment on above:Performed By: #### ERTPF, CONNER, LIP, LIVP, TEGCR ####[address] [address] MCH Auto Entitic mass (RBC)29.4 baJulmnr99.2-33.5[facility] HospitalComment on above: Performed By: #### ERTPF, CONNER, LIP, LIVP, TEGCR ####[facility] [address]ml[address] [place] [address] MCHC Auto mass conc (RBC)30.0 g/dLNormal 28.4-34.8[facility] HospitalComment on above:Performed By: #### ERTPF, CONNER, LIP, LIVP, TEGCR ####[facility] [address] [place] [address] MCV Auto Entitic volume (RBC)98.1 bPQnzfjd45.6-102.9[facility] HospitalComment on above:Performed By: #### ERTPF, CONNER, LIP, LIVP, TEGCR ####[place] [address] NRBC Automated0.4 per 100 WBCHigh0.0[facility] HospitalComment on above: Performed By: #### ERTPF, CONNER, LIP, LIVP, TEGCR ####[place] [address] Platelet mean volume Auto Entitic volume (Bld)11.5 fLNormal8.1-13.5[facility] HospitalComment on above: Performed By: #### ERTPF, CONNER, LIP, LIVP, TEGCR ####[place] [address] Platelets Auto #/vol (Bld)526 10*3/uLHigh 138-453[facility] HospitalComment on above:Performed By: #### ERTPF, CONNER, LIP, LIVP, TEGCR ####[place] [address] RBC Auto #/vol (Bld)3.09 10*6/uLLow4.21-5.77[facility] HospitalComment on above:Performed By: #### ERTPF, CONNER, LIP, LIVP, TEGCR ####[address] [address] WBC Auto #/vol (Bld)24.5 10*3/uLHigh3.5-11.3[facility] HospitalComment on above: Performed By: #### ERTPF, CONNER, LIP, LIVP, TEGCR ####[address] [address] Specimen Rejectionon [id number] for rejectionUnable to perform testing: Specimen hemolyzed.[facility] HospitalComment on above:Performed By: #### ERTPF, CONNER, LIP, LIVP, TEGCR ####[address] [address] Source of sample.BLOODNoMercy Health Fairfield HospitalComment on above:Performed By: #### ERTPF, CONNER, LIP, LIVP, TEGCR ####[address] [address] Test orderedBMPNormalBethesda North Hospital Comment on above:Performed By: #### ERTPF, CONNER, LIP, LIVP, TEGCR ####[address] [address] -----NOT REPORTEDNormal [facility] HospitalComment on above:Performed By: #### ERTPF, CONNER, LIP, LIVP, TEGCR ####[address] [address] XR ABDOMEN (KUB) (SINGLE AP VIEW)on [id number] ABDOMEN (KUB) (SINGLE AP VIEW)EXAMINATION:SINGLE SUPINE XRAY VIEW(S) OF THE MJMTEYY6102/10/2018 2:04 pmCOMPARISON:None.HISTORY:ORDERING SYSTEM PROVIDED HISTORY: s/p PEGTECHNOLOGIST PROVIDED HISTORY:With gastrografin to determine for leakPlease call [phone] for questions.Reason for exam:->s/p PEGFINDINGS:Diffuse bowel distention. A gastrostomy tube is present in the left upperquadrant. The balloon is inflated. Injected contrast opacifies the stomach.No extravasation of contrast.IMPRESSION: No extravasation of contrast.Interpreted by:NADEGE Lancasterigned by:Hebert Best MD02/10/18inal resultNormalBethesda North HospitalBasic Metabolic Profon 02-09-2018(cont.)NormalBethesda North HospitalComment on above:Result Comment: Average GFR for 50-59 years old: 93 mL/min/1.73sq mChronic Kidney Disease: <60 mL/min/1.73sq mKidney failure: <15 mL/min/1.73sq meGFR calculated using average adult body mass. Additional eGFR calculator available at:http://www.[employer] [employer]/multiple_crcl_2012.htmPerformed By: #### ERTPF, CONNER, LIP, LIVP, TEGCR ####[facility]170 SystemsV[address]kbuyfjmbfo[address] [place] [address] Anion gap 3 molar conc16 mmol/LNormal9-17[facility] HospitalComment on above:Performed By: #### ERTPF, CONNER, LIP, LIVP, TEGCR ####[facility]170 SystemsVwczalsyjkbq[address]396 [place] [address] Calcium mass conc8.3 mg/dLLow8.6-10.4[facility] HospitalComment on above:Performed By: #### ERTPF, CONNER, LIP, LIVP, TEGCR ####[employer] [place] [address] Chloride molar zloo235 mmol/KWpwc62-827 [facility] HospitalComment on above:Performed By: #### ERTPF, CONNER, LIP, LIVP, TEGCR ####[facility] Y[address]vaq[address] [place] [address] RL3 molar conc18 mmol/RApw58-33SqcqkBethesda North Hospital Comment on above:Performed By: #### ERTPF, CONNER, LIP, LIVP, TEGCR ####[facility] [address] [place] [address] Creatinine mass conc3.10 mg/dLHigh0.70-1.20MerKindred HospitalComment on above:Performed By: #### ERTPF, CONNER, LIP, LIVP, TEGCR ####[facility] [address]yn[address] [place] [address] GFR, Amer25 mL/minLow>60[facility] HospitalComment on above:Performed By: #### ERTPF, CONNER, LIP, LIVP, TEGCR ####[facility] [address] [place] [address] GFR,non Amer21 mL/minLow>60[facility] HospitalComment on above: Performed By: #### ERTPF, CONNER, LIP, LIVP, TEGCR ####[facility] [address] [place] [address] Glucose mass feoz209 mg/qIAwza21-21Bfvgu [facility] HospitalComment on above:Performed By: #### ERTPF, CONNER, LIP, LIVP, TEGCR ####[address] [address] Potassium molar conc4.0 mmol/LNormal3.7-5.3[facility] Comment on above:Performed By: #### ERTPF, CONNER, LIP, LIVP, TEGCR ####[facility] [address] [place] [address] Sodium molar hwpm538 mmol/PCnbxpp486-529VdramKindred HospitalComment on above:Performed By: #### ERTPF, CONNER, LIP, LIVP, TEGCR ####[facility] [address] [place] [address] [phone] nitrogen mass conc67 mg/dLHigh6-20[facility] HospitalComment on above:Performed By: #### ERTPF, CONNER, LIP, LIVP, TEGCR ####[facility] [address] [place] [address] BUN/CRE RatioNOT REPORTEDNormal9-20[facility] HospitalComment on above:Performed By: #### ERTPF, CONNER, LIP, LIVP, TEGCR ####[facility] Ndos[address]zholosy[address] [place], [place] [phone]:NOT REPORTEDNormalBethesda North HospitalComment on above:Performed By: #### ERTPF, CONNER, LIP, LIVP, TEGCR ####[address] [phone] Natri. Peptideon 19-52-3979Hlyrwganwng peptide B mass conc (Bld)NormalBethesda North HospitalComment on above:Result Comment: Pro-BNP Reference Range:Rule Out: <300Grey Zone: Age <50 300-450 Age 50-75 300-900 Age >75 300- 1800Usually represents mild to moderate HF but other cardiopulmonary causes evelyne ot be ruled out.Rule In: Age <50 >450 Age 50-75 >900 Age >75 >1800Performed By: #### ERTPF, CONNER, LIP, LIVP, TEGCR ####[facility] [address] [place], [place] [phone] peptide B mass conc (Bld)1435 pg/mLHigh<300 [facility] HospitalComment on above:Result Comment: Pro-BNP results cannot be compared to BNP results.Performed By: #### ERTPF, CONNER, LIP, LIVP, TEGCR ####[facility] [address] [place], [place] [phone] 44-56-9574Tdentacvwry distribution width Auto Ratio (RBC)17.7 %High11.8-14.4 [facility] HospitalComment on above:Performed By: #### ERTPF, CONNER, LIP, LIVP, TEGCR ####[place] [address] [place] [address] Hematocrit Auto Volume Fraction (Bld)29.4 %Low40.7-50.3[facility] HospitalComment on above:Performed By: #### ERTPF, CONNER, LIP, LIVP, TEGCR ####[address] [address] Hemoglobin mass conc (Bld)8.8 g/dLLow13.0-17.0[facility] Comment on above:Performed By: #### ERTPF, CONNER, LIP, LIVP, TEGCR ####[address] [address] MCH Auto Entitic mass (RBC)29.2 qeLqiqna63.2-33.5[facility] HospitalComment on above: Performed By: #### ERTPF, CONNER, LIP, LIVP, TEGCR ####[address] [address] MCHC Auto mass conc (RBC)29.9 g/dLNormal 28.4-34.8[facility] HospitalComment on above:Performed By: #### ERTPF, CONNER, LIP, LIVP, TEGCR ####[address] [address] MCV Auto Entitic volume (RBC)97.7 fYXpycuz99.6-102.9[facility] HospitalComment on above:Performed By: #### ERTPF, CONNER, LIP, LIVP, TEGCR ####[address] [address] NRBC Automated0.9 per 100 WBCHigh0.0[facility] HospitalComment on above: Performed By: #### ERTPF, CONNER, LIP, LIVP, TEGCR ####Filomena [address] [place] [address] Platelet mean volume Auto Entitic volume (Bld)11.5 fLNormal8.1-13.5[facility] HospitalComment on above: Performed By: #### ERTPF, CONNER, LIP, LIVP, TEGCR ####Filomena [address] [place] [address] Platelets Auto #/vol (Bld)458 10*3/uLHigh 138-453[facility] HospitalComment on above:Performed By: #### ERTPF, CONNER, LIP, LIVP, TEGCR ####Filomena [address] [address] RBC Auto #/vol (Bld)3.01 10*6/uLLow4.21-5.77[facility] HospitalComment on above:Performed By: #### ERTPF, CONNER, LIP, LIVP, TEGCR ####[place] [address] WBC Auto #/vol (Bld)19.8 10*3/uLHigh3.5-11.3[facility] HospitalComment on above: Performed By: #### ERTPF, CONNER, LIP, LIVP, TEGCR ####[facility] [place], [place] [phone] Metabolic Profon 02-08-2018(cont.) NormalBethesda North HospitalComment on above:Result Comment: Average GFR for 50-59 years old: 93 mL/min/1.73sq mChronic Kidney Disease: <60 mL /min/1.73sq mKidney failure: <15 mL/min/1.73sq meGFR calculated using average adult body mass. Additional eGFR calculator available at:http://www.[employer].com/multiple_crcl_2012.htmPerformed By: #### ERTPF, CONNER, LIP, LIVP, TEGCR ####[facility] [address] [place] [address] Anion gap 3 molar conc13 mmol/LNormal9-17[facility] HospitalComment on above:Performed By: #### ERTPF, CONNER, LIP, LIVP, TEGCR ####[address] [address] Calcium mass conc8.3 mg/dLLow8.6-10.4[facility] HospitalComment on above: Performed By: #### ERTPF, CONNER, LIP, LIVP, TEGCR ####[address] [address] Chloride molar vxnn176 mmol/XFerx27-485 [facility] HospitalComment on above:Performed By: #### ERTPF, CONNER, LIP, LIVP, TEGCR ####[address] [address] [place] molar conc17 mmol/TFnt83-82CipjoBethesda North Hospital Comment on above:Performed By: #### ERTPF, CONNER, LIP, LIVP, TEGCR ####[address] [address] Creatinine mass conc3.39 mg/dLHigh0.70-1.20[facility] HospitalComment on above:Performed By: #### ERTPF, CONNER, LIP, LIVP, TEGCR ####[id number] [place] [address] GFR, Amer23 mL/minLow>60MerKindred HospitalComment on above:Performed By: #### ERTPF, CONNER, LIP, LIVP, TEGCR ####[address] [address] GFR,non Amer19 mL/minLow>60MerKindred HospitalComment on above: Performed By: #### ERTPF, CONNER, LIP, LIVP, TEGCR ####[facility] [address] [place], [place] [address] Glucose mass uoxi755 mg/zGWevz83-11Qlekx [facility] HospitalComment on above:Performed By: #### ERTPF, CONNER, LIP, LIVP, TEGCR ####[facility] Frgbqbqcfm[address] [place] [address] Potassium molar conc4.3 mmol/LNormal3.7-5.3MR[facility] Comment on above:Performed By: #### ERTPF, CONNER, LIP, LIVP, TEGCR ####[address] [address] Sodium molar anps069 mmol/DZcprbq600-558IgpxpBethesda North HospitalComment on above:Performed By: #### ERTPF, CONNER, LIP, LIVP, TEGCR ####[address] [address] Urea nitrogen mass conc68 mg/dLHigh6-20[facility] HospitalComment on above:Performed By: #### ERTPF, CONNER, LIP, LIVP, TEGCR ####[facility] Ozwlobzymlh[address] [place] [address] BUN/CRE RatioNOT REPORTEDNormal9-20[facility] North HospitalComment on above:Performed By: #### ERTPF, CONNER, LIP, LIVP, TEGCR ####[address] [address] Staging:NOT REPORTEDNormalBethesda North HospitalComment on above:Performed By: #### ERTPF, CONNER, LIP, LIVP, TEGCR ####[facility] [address]zbbzletbcqd[address] [place] [address] Brain Natri. Peptideon 97-41-0965Swzcmqemnhf peptide B mass conc (Bld)NormalBethesda North HospitalComment on above:Result Comment: Pro-BNP Reference Range:Rule Out: <300Grey Zone: Age <50 300-450 Age 50-75 300-900 Age >75 300- 1800Usually represents mild to moderate HF but other cardiopulmonary causes evelyne ot be ruled out.Rule In: Age <50 >450 Age 50-75 >900 Age >75 >1800Performed By: #### ERTPF, CONNER, LIP, LIVP, TEGCR ####[address] [address] Natriuretic peptide B mass conc (Bld)1933 pg/mLHigh<300 [facility] HospitalComment on above:Result Comment: Pro-BNP results cannot be compared to BNP results.Performed By: #### ERTPF, CONNER, LIP, LIVP, TEGCR ####[address] [phone] 61-35-4346Reftlovmygb distribution width Auto Ratio (RBC)18.3 %High11.8-14.4 [facility] HospitalComment on above:Performed By: #### ERTPF, CONNER, LIP, LIVP, TEGCR ####[address] 4360 Hematocrit Auto Volume Fraction (Bld)26.2 %Low40.7-50.3MRiverside Community HospitalComment on above:Performed By: #### ERTPF, CONNER, LIP, LIVP, TEGCR ####[facility] [address] [place] [address] Hemoglobin mass conc (Bld)8.0 g/dLLow13.0-17.0[facility] Comment on above:Performed By: #### ERTPF, CONNER, LIP, LIVP, TEGCR ####[address] [address] MCH Auto Entitic mass (RBC)29.6 irYxnrkt60.2-33.5[facility] HospitalComment on above: Performed By: #### ERTPF, CONNER, LIP, LIVP, TEGCR ####[facility] Jiymuldathgn[address] [place] [address] MCHC Auto mass conc (RBC)30.5 g/dLNormal 28.4-34.8[facility] HospitalComment on above:Performed By: #### ERTPF, CONNER, LIP, LIVP, TEGCR ####[place] [address] MCV Auto Entitic volume (RBC)97.0 kEPvgdtp55.6-102.9[facility] North HospitalComment on above:Performed By: #### ERTPF, CONNER, LIP, LIVP, TEGCR ####[facility] Q[address]xvmk[address]uq[address] [place] [address] NRBC Automated1.2 per 100 WBCHigh0.0[facility] North HospitalComment on above: Performed By: #### ERTPF, CONNER, LIP, LIVP, TEGCR ####[place] [address] Platelet mean volume Auto Entitic volume (Bld)12.1 fLNormal8.1-13.5[facility] HospitalComment on above: Performed By: #### ERTPF, CONNER, LIP, LIVP, TEGCR ####[place] [address] Platelets Auto #/vol (Bld)373 10*3/uL Uvkgin732-232CcupiBethesda North HospitalComment on above:Performed By: #### ERTPF, CONNER, LIP, LIVP, TEGCR ####[place] [address] RBC Auto #/vol (Bld)2.70 10*6/uLLow4.21-5.77[facility] HospitalComment on above:Performed By: #### ERTPF, CONNER, LIP, LIVP, TEGCR ####[facility] [address] [place] [address] WBC Auto #/vol (Bld)23.8 10*3/uLHigh3.5-11.3[facility]y [facility] HospitalComment on above: Performed By: #### ERTPF, CONNER, LIP, LIVP, TEGCR ####[facility] [address] [address] Magnesiumon 22-26-3666Qdeuvuqny mass conc 2.4 mg/dLNormal1.6-2.6MRiverside Community HospitalComment on above:Performed By: #### ERTPF, CONNER, LIP, LIVP, TEGCR ####[facility] [address] [place] [address] Phosphorus, Inorg.on 17-61-5419Htxzpccfog, Inorg.5.7 mg/dLHigh2.5-4.5[facility] HospitalComment on above: Performed By: #### ERTPF, CONNER, LIP, LIVP, TEGCR ####[facility] [address] [address] Basic Metabolic Profon 02-07-2018(cont.) NormalBethesda North HospitalComment on above:Result Comment: Average GFR for 50-59 years old: 93 mL/min/1.73sq mChronic Kidney Disease: <60 mL /min/1.73sq mKidney failure: <15 mL/min/1.73sq meGFR calculated using average adult body mass. Additional eGFR calculator available at:http://www.Hiddenbed.Medical Simulation/multiple_crcl_2012.htmPerformed By: #### ERTPF, CONNER, LIP, LIVP, TEGCR ####[facility] Rwgneggourlq4833 [place] [address] Anion gap 3 molar conc11 mmol/LNormal9-17[facility] HospitalComment on above:Performed By: #### ERTPF, CONNER, LIP, LIVP, TEGCR ####[facility] Jlueotmwejsd5624 [place] [address] Calcium mass conc8.3 mg/dLLow8.6-10.4[facility] HospitalComment on above: Performed By: #### ERTPF, CONNER, LIP, LIVP, TEGCR ####[address] [address] Chloride molar gwuy425 mmol/ZNvlz06-814 [facility] HospitalComment on above:Performed By: #### ERTPF, CONNER, LIP, LIVP, TEGCR ####[address] 4360 VR9 molar conc16 mmol/DEgu42-48IdgyfBethesda North Hospital Comment on above:Performed By: #### ERTPF, CONNER, LIP, LIVP, TEGCR ####[address] [address] Creatinine mass conc3.99 mg/dLHigh0.70-1.20[facility] HospitalComment on above:Performed By: #### ERTPF, CONNER, LIP, LIVP, TEGCR ####[facility] Rcjqqdqashcl1096 [place] [address] GFR, Amer19 mL/minLow>60[facility] HospitalComment on above:Performed By: #### ERTPF, CONNER, LIP, LIVP, TEGCR ####[facility] Bwjsczfuijjy8462 [place] [address] GFR,non Amer16 mL/minLow>60[facility] HospitalComment on above: Performed By: #### ERTPF, CONNER, LIP, LIVP, TEGCR ####[facility] Vgnzuperxjue2642 [place] [address] Glucose mass lias752 mg/yHQlpq55-14Yknla [facility] HospitalComment on above:Performed By: #### ERTPF, CONNER, LIP, LIVP, TEGCR ####[address] [address] Potassium molar conc4.6 mmol/LNormal3.7-5.3[facility] Comment on above:Performed By: #### ERTPF, CONNER, LIP, LIVP, TEGCR ####[address] [address] Sodium molar kjfn117 mmol/PGtdofj458-367LleftBethesda North HospitalComment on above:Performed By: #### ERTPF, CONNER, LIP, LIVP, TEGCR ####[facility] [address] [place] [address] Urea nitrogen mass conc71 mg/dLHigh6-20[facility] HospitalComment on above:Performed By: #### ERTPF, CONNER, LIP, LIVP, TEGCR ####[facility] Xxfoxbcfnlsx6635 [place] [address] BUN/CRE RatioNOT REPORTEDNormal9-20[facility] HospitalComment on above:Performed By: #### ERTPF, CONNER, LIP, LIVP, TEGCR ####[facility] Ttwatrdcfnsf5432 [place] [address] Staging:NOT REPORTEDNormalBethesda North HospitalComment on above:Performed By: #### ERTPF, CONNER, LIP, LIVP, TEGCR ####[facility] Qkotcsadpiiw[address] [place] [address] Brain Natri. Peptideon 06-73-3228Fjjeymizfbu peptide B mass conc (Bld)1696 pg/mLHigh <300Mer[facility]ylo Medical CenterComment on above:Result Comment: Pro-BNP results cannot be compared to BNP results.Performed By: #### ERTPF, CONNER, LIP, LIVP, TEGCR ####[address] [address] Natriuretic peptide B mass conc (Bld)NormalBethesda North Hospital Comment on above:Result Comment: Pro-BNP Reference Range:Rule Out: <300Grey Zone: Age <50 300-450 Age 50-75 300-900 Age >75 300-1800Usually represents mild to moderate HF but other cardiopulmonary causes cannot be ruled out.Rule In: Age <50 >450 Age 50-75 >900 Age >75 >1800Performed By: #### ERTPF, CONNER, LIP, LIVP, TEGCR ####[address] [phone] 81-99-1236Kpmmdyvgued distribution width Auto Ratio (RBC)18.5 %High11.8-14.4 [facility] HospitalComment on above:Performed By: #### ERTPF, CONNER, LIP, LIVP, TEGCR ####[address] 4360 Hematocrit Auto Volume Fraction (Bld)23.5 %Low40.7-50.3[facility]y [facility] HospitalComment on above:Performed By: #### ERTPF, CONNER, LIP, LIVP, TEGCR ####[address] [address] Hemoglobin mass conc (Bld)7.4 g/dLLow13.0-17.0[facility] Comment on above:Performed By: #### ERTPF, CONNER, LIP, LIVP, TEGCR ####[address] [address] MCH Auto Entitic mass (RBC)30.1 vbBhycqg39.2-33.5[facility] HospitalComment on above: Performed By: #### ERTPF, CONNER, LIP, LIVP, TEGCR ####[facility] [address] [place] [address] MCHC Auto mass conc (RBC)31.5 g/dLNormal 28.4-34.8[facility] HospitalComment on above:Performed By: #### ERTPF, CONNER, LIP, LIVP, TEGCR ####[place] [address] MCV Auto Entitic volume (RBC)95.5 fQFsnbnx00.6-102.9[facility] HospitalComment on above:Performed By: #### ERTPF, CONNER, LIP, LIVP, TEGCR ####[place] [address] NRBC Automated1.5 per 100 WBCHigh0.0[facility] HospitalComment on above: Performed By: #### ERTPF, CONNER, LIP, LIVP, TEGCR ####[place] [address] Platelet mean volume Auto Entitic volume (Bld)11.7 fLNormal8.1-13.5[facility] HospitalComment on above: Performed By: #### ERTPF, CONNER, LIP, LIVP, TEGCR ####[place] [address] Platelets Auto #/vol (Bld)406 10*3/uL Zwhhuw678-523BtuzxKindred HospitalComment on above:Performed By: #### ERTPF, CONNER, LIP, LIVP, TEGCR ####[place] [address] RBC Auto #/vol (Bld)2.46 10*6/uLLow4.21-5.77[facility] HospitalComment on above:Performed By: #### ERTPF, CONNER, LIP, LIVP, TEGCR ####[employer] [address]oj[address]jvqxhyin[address] [place], [place] [phone])[phone] Auto #/vol (Bld)24.8 10*3/uLHigh3.5-11.3[facility] HospitalComment on above: Performed By: #### ERTPF, CONNER, LIP, LIVP, TEGCR ####[facility] Furjyefxbwua7904 [place], [place] [phone]/Hcton 33-02-6597Sddxiyfbzo Auto Volume Fraction (Bld)23.9 %Low40.7-50.3[facility] HospitalComment on above:Performed By: #### ERTPF, CONNER, LIP, LIVP, TEGCR ####[facility] Ftvwiivnksmh7852 [place], [place] [phone] mass conc (Bld)7.5 g/dLLow13.0-17.0[facility] HospitalComment on above: Performed By: #### ERTPF, CONNER, LIP, LIVP, TEGCR ####[facility] [place] [address] [phone] CHEST (SINGLE VIEW FRONTAL)on 63-33-6983DB CHEST (SINGLE VIEW FRONTAL)EXAMINATION:SINGLE XRAY VIEW OF [...] are unchanged.I nterpreted by:NADEGE Lancasterigned by:Hebert Best MD02/07/18Final result NormalMerKindred HospitalAmylaseon 25-18-9927Qoiqkgy enzyme act/vol 167 U/ZLzvz79-162Zqnmo [facility]ylo Medical CenterComment on above:Performed By: #### ERTPF, CONNER, LIP, LIVP, TEGCR ####[facility] Frbkwppsabtk7112 [place] [address] Basic Metabolic Profon 31-02-0052Dtixa gap 3 molar conc15 mmol/LNormal9-17[facility] HospitalComment on above:Performed By: #### ERTPF, CONNER, LIP, LIVP, TEGCR ####[facility] Inbcxzyrgqaf9094 [place] [address] Chloride molar etxk258 mmol/KUnbp58-649YvqmaBethesda North HospitalComment on above:Performed By: #### ERTPF, CONNER, LIP, LIVP, TEGCR ####[place] [address] [place] [address] Potassium molar conc4.5 mmol/LNormal3.7-5.3MRiverside Community HospitalComment on above:Performed By: #### ERTPF, CONNER, LIP, LIVP, TEGCR ####[address] [place] [address] Sodium molar sqmc944 mmol/SWoacwu712-947 [facility] HospitalComment on above:Performed By: #### ERTPF, CONNER, LIP, LIVP, TEGCR ####[address] [address] (cont.)NormalBethesda North HospitalComment on above: Result Comment: Average GFR for 50-59 years old: 93 mL/min/1.73sq mChronic Kidney Disease: <60 mL/min/1.73sq mKidney failure: <15 mL/min/1.73sq meGFR calculated using average adult body mass. Additional eGFR calculator available at:http://www.Hiddenbed.Medical Simulation/multiple_crcl_2012.htmPerformed By: #### ERTPF, CONNER, LIP, LIVP, TEGCR ####[facility] Avbiikuahggl0457 [place] 43[address] Calcium mass conc8.0 mg/dLLow8.6-10.4[facility] HospitalComment on above:Performed By: #### ERTPF, CONNER, LIP, LIVP, TEGCR ####[facility] Fgoauthbcich0513 [place] [address] VC2 molar conc16 mmol/L Avm91-99QhznoBethesda North HospitalComment on above:Performed By: #### ERTPF, CONNER, LIP, LIVP, TEGCR ####[place] [place] [address] Creatinine mass conc4.02 mg/dLHigh0.70-1.20[facility] HospitalComment on above:Performed By: #### ERTPF, CONNER, LIP, LIVP, TEGCR ####[address] [address] GFR, Amer19 mL/minLow>60[facility] HospitalComment on above:Performed By: #### ERTPF, CONNER, LIP, LIVP, TEGCR ####[address] [place] [address] GFR,non Amer15 mL/minLow>60[facility] HospitalComment on above:Performed By: #### ERTPF, CONNER, LIP, LIVP, TEGCR ####[facility] Rrvvxywffcgh7340 [place] [address] Glucose mass oryt754 mg/oAHern32-33DcvhnRiverside Community HospitalComment on above: Performed By: #### ERTPF, CONNER, LIP, LIVP, TEGCR ####[facility] Fqjxfanrtebd5089 [place] [address] Urea nitrogen mass conc72 mg/dLHigh6-20 [facility] HospitalComment on above:Performed By: #### ERTPF, CONNER, LIP, LIVP, TEGCR ####[facility] [address]bd[address]agoulqmc[address]50 [place] 43[address] BUN/CRE RatioNOT REPORTEDNormal9-20[facility] HospitalComment on above:Performed By: #### ERTPF, CONNER, LIP, LIVP, TEGCR ####[facility] Dwjgdyjsngcq4809 [place], [place] [phone]:NOT REPORTED NormalBethesda North HospitalComment on above:Performed By: #### ERTPF, CONNER, LIP, LIVP, TEGCR ####[facility] Xonyqukldfbr2831 [place] 43[address] Brain Natri. Peptideon 42-99-5798Egzljwaxxha peptide B mass conc (Bld)NormalBethesda North HospitalComment on above:Result Comment: Pro- BNP Reference Range:Rule Out: <300Grey Zone: Age <50 300-450 Age 50-75 300-900 Age >75 300-1800Usually represents mild to moderate HF but other cardiopulmonary causes cannot be ruled out.Rule In: Age <50 >450 Age 50-75 >900 Age >75 >1800 Performed By: #### ERTPF, CONNER, LIP, LIVP, TEGCR ####[facility] Wmaxixzchtfr8589 [place] [address] Natriuretic peptide B mass conc (Bld)2505 pg/mLHigh<300[facility] HospitalComment on above:Result Comment: Pro-BNP results cannot be compared to BNP results.Performed By: #### ERTPF, CONNER, LIP, LIVP, TEGCR ####[facility] Hfexojmcmcrb8816 [place] 43[address] CBCon 89-39-4410Sjheqwfnuvj distribution width Auto Ratio (RBC) 20.3 %High11.8-14.4[facility] HospitalComment on above:Performed By: #### ERTPF, CONNER, LIP, LIVP, TEGCR ####[facility] Ywuqjnrebbrz[address]109 [place] [address] Hematocrit Auto Volume Fraction (Bld)22.9 %Low 40.7-50.3[facility]y [facility] HospitalComment on above:Performed By: #### ERTPF, CONNER, LIP, LIVP, TEGCR ####[facility] [address] [place] [address] Hemoglobin mass conc (Bld)6.9 g/dLCritically low13.0-17.0[facility] HospitalComment on above:Performed By: #### ERTPF, CONNER, LIP, LIVP, TEGCR ####[facility] [address] [place] [address] MCH Auto Entitic mass (RBC)29.2 tnRsegjs71.2-33.5[facility] HospitalComment on above:Performed By: #### ERTPF, CONNER, LIP, LIVP, TEGCR ####[facility] [address] [place] [address] MCHC Auto mass conc (RBC)30.1 g/wFMdcwhc55.4-34.8[facility] HospitalComment on above: Performed By: #### ERTPF, CONNER, LIP, LIVP, TEGCR ####[address] [address] MCV Auto Entitic volume (RBC)97.0 fL Jfuozd05.6-102.9[facility] HospitalComment on above:Performed By: #### ERTPF, CONNER, LIP, LIVP, TEGCR ####[facility] [address]nlm[address] [place] [address] NRBC Automated1.8 per 100 WBCHigh0.0[facility] HospitalComment on above:Performed By: #### ERTPF, CONNER, LIP, LIVP, TEGCR ####[facility] Ayeqwaitsbuz[address] [place] [address] Platelet mean volume Auto Entitic volume (Bld)11.9 fLNormal8.1-13.5[facility] HospitalComment on above:Performed By: #### ERTPF, CONNER, LIP, LIVP, TEGCR ####[facility] [address] [place] [address] Platelets Auto #/vol (Bld)399 10*3/iUZmuqie354-862XosufBethesda North HospitalComment on above: Performed By: #### ERTPF, CONNER, LIP, LIVP, TEGCR ####[place] [address] RBC Auto #/vol (Bld)2.36 10*6/uLLow 4.21-5.77[facility] HospitalComment on above:Performed By: #### ERTPF, CONNER, LIP, LIVP, TEGCR ####[place] [address] WBC Auto #/vol (Bld)25.6 10*3/uLHigh3.5-11.3MRiverside Community HospitalComment on above:Performed By: #### ERTPF, CONNER, LIP, LIVP, TEGCR ####[address] [address] Creatine Kinaseon 95-01-8068ZN enzyme act/jyr665 U/SIrvg81-398WphiuBethesda North HospitalComment on above:Performed By: #### ERTPF, CONNER, LIP, LIVP, TEGCR ####[address] [address] Lactic Acid,Whole Blon 83-69-6772Oextwz Acid,Whole Bl0.7 mmol/LNormal0.7-2.1MRiverside Community HospitalComment on above:Performed By: #### ERTPF, CONNER, LIP, LIVP, TEGCR ####[facility] Vbfcwscncitw3865 [place] [address] Lactic Acid,Whole Bl0.8 mmol/LNormal0.7-2.1MRiverside Community HospitalComment on above:Performed By: #### ERTPF, CONNER, LIP, LIVP, TEGCR ####[facility] [place] [address] Lipaseon 34-61-6189Fwpdpw enzyme act/vol51 U/L Vvgxfs66-03JpwuiBethesda North HospitalComment on above:Performed By: #### ERTPF, CONNER, LIP, LIVP, TEGCR ####[address] [place] [address] Myoglobinon 81-74-4549Xelrbcwvv mass ejuv131 ng/uUMjey13-79 [facility] HospitalComment on above:Performed By: #### ERTPF, CONNER, LIP, LIVP, TEGCR ####[address] [place] 43[address] Basic Metabolic Profon 02-05-2018(cont.)NormalBethesda North HospitalComment on above:Result Comment: Average GFR for 50-59 years old: 93 mL/min/1.73sq mChronic Kidney Disease: <60 mL/min/1.73sq mKidney failure: <15 mL/min/1.73sq meGFR calculated using average adult body mass. Additional eGFR calculator available at:http://www.[employer]bed.Medical Simulation/multiple_crcl_2012.htmPerformed By: #### ERTPF, CONNER, LIP, LIVP, TEGCR ####[address] [place], [place] [phone] gap 3 molar conc12 mmol/LNormal9-17[facility] HospitalComment on above:Performed By: #### ERTPF, CONNER, LIP, LIVP, TEGCR ####[address] [place] [address] Calcium mass conc7.6 mg/dLLow8.6-10.4[facility] HospitalComment on above:Performed By: #### ERTPF, CONNER, LIP, LIVP, TEGCR ####[facility] [address]wh[address] [place] [address] Chloride molar fwhx149 mmol/HEqfk86-836 [facility] HospitalComment on above:Performed By: #### ERTPF, CONNER, LIP, LIVP, TEGCR ####[address] [place] 43[address] PV5 molar conc16 mmol/XZbg08-98FziioBethesda North Hospital Comment on above:Performed By: #### ERTPF, CONNER, LIP, LIVP, TEGCR ####[address] [address] Creatinine mass conc3.63 mg/dLHigh0.70-1.20[facility] HospitalComment on above:Performed By: #### ERTPF, CONNER, LIP, LIVP, TEGCR ####[facility] [place] [address] GFR, Amer21 mL/minLow>60[facility] HospitalComment on above:Performed By: #### ERTPF, CONNER, LIP, LIVP, TEGCR ####[facility] Iyljjlvubepy8982 [place] [address] GFR,non Amer17 mL/minLow>60[facility] HospitalComment on above: Performed By: #### ERTPF, CONNER, LIP, LIVP, TEGCR ####[facility] Ekzmpvqvzkrp5974 [place] [address] Glucose mass xadr630 mg/gWPgeb85-64TmfwtRiverside Community HospitalComment on above:Performed By: #### ERTPF, CONNER, LIP, LIVP, TEGCR ####[facility] [address] [place] [address] Potassium molar conc4.1 mmol/LNormal3.7-5.3[facility] Comment on above:Performed By: #### ERTPF, CONNER, LIP, LIVP, TEGCR ####[address] [address] Sodium molar tfjt677 mmol/WWqznsj122-780CssatBethesda North HospitalComment on above:Performed By: #### ERTPF, CONNER, LIP, LIVP, TEGCR ####[address] [address] Urea nitrogen mass conc69 mg/dLHigh6-20[facility] HospitalComment on above:Performed By: #### ERTPF, CONNER, LIP, LIVP, TEGCR ####[address] [address] BUN/CRE RatioNOT REPORTEDNoal9-20[facility] HospitalComment on above:Performed By: #### ERTPF, CONNER, LIP, LIVP, TEGCR ####[address] [address] Staging:NOT REPORTEDNormalBethesda North HospitalComment on above:Performed By: #### ERTPF, CONNER, LIP, LIVP, TEGCR ####[facility] [address] [place] [address] Calcium mass conc7.6 mg/dLLow8.6-10.4[facility] HospitalComment on above: Performed By: #### ERTPF, CONNER, LIP, LIVP, TEGCR ####[facility] [address] [place] [address] Urea nitrogen mass conc72 mg/dLHigh6-20 [facility] HospitalComment on above:Performed By: #### ERTPF, CONNER, LIP, LIVP, TEGCR ####[facility] [address]ahnyhtbiftm[address] [place] [address] Creatinine mass conc3.70 mg/dLHigh0.70-1.20[facility] HospitalComment on above:Performed By: #### ERTPF, CONNER, LIP, LIVP, TEGCR ####[facility] [address]xdnaiwjwojx2670 [place] [address] GFR, Amer21 mL/minLow>60[facility] HospitalComment on above:Performed By: #### ERTPF, CONNER, LIP, LIVP, TEGCR ####[facility] Dqxvigwujlbg7936 [place] [address] GFR,non Amer17 mL/minLow>60[facility] HospitalComment on above:Performed By: #### ERTPF, CONNER, LIP, LIVP, TEGCR ####[facility] Zeamyasopesu1887 [place] [address] (cont.) NormalBethesda North HospitalComment on above:Result Comment: Average GFR for 50-59 years old: 93 mL/min/1.73sq mChronic Kidney Disease: <60 mL /min/1.73sq mKidney failure: <15 mL/min/1.73sq meGFR calculated using average adult body mass. Additional eGFR calculator available at:http://www.Hiddenbed.com/multiple_crcl_2012.htmPerformed By: #### ERTPF, CONNER, LIP, LIVP, TEGCR ####[facility] [address]ozxwwzxjyb[address] [place] [address] Anion gap 3 molar conc11 mmol/LNormal9-17[facility] HospitalComment on above:Performed By: #### ERTPF, CONNER, LIP, LIVP, TEGCR ####[facility] Z[address]ftgokdhbi7445 [place] [address] Chloride molar rmbw371 mmol/XMjnb74-115PztsxBethesda North HospitalComment on above: Performed By: #### ERTPF, CONNER, LIP, LIVP, TEGCR ####[address] [address] YU5 molar conc17 mmol/QZja48-98UtdziBethesda North HospitalComment on above:Performed By: #### ERTPF, CONNER, LIP, LIVP, TEGCR ####[facility] [address] [place] [id number] Glucose mass aktr858 mg/sBWqlj88-92XzmikRiverside Community HospitalComment on above: Performed By: #### ERTPF, CONNER, LIP, LIVP, TEGCR ####[address] [address] Potassium molar conc4.3 mmol/LNormal 3.7-5.3MRiverside Community HospitalComment on above:Performed By: #### ERTPF, CONNER, LIP, LIVP, TEGCR ####[address] [address] Sodium molar jico886 mmol/SVfymnz610-267YmdgbBethesda North HospitalComment on above:Performed By: #### ERTPF, CONNER, LIP, LIVP, TEGCR ####[address] [address] BUN/CRE Ratio NOT REPORTEDNormal9-20[facility] HospitalComment on above:Performed By: #### ERTPF, CONNER, LIP, LIVP, TEGCR ####[address] [phone]:NOT REPORTEDNormalBethesda North HospitalComment on above:Performed By: #### ERTPF, CONNER, LIP, LIVP, TEGCR ####[address] [address] (cont.)Normal [facility] HospitalComment on above:Result Comment: Average GFR for 50-59 years old: 93 mL/min/1.73sq mChronic Kidney Disease: <60 mL/min/1.73sq mKidney failure: <15 mL/min/1.73sq meGFR calculated using average adult body mass. Additional eGFR calculator available at:[email or web address] [email or web address] By: #### ERTPF, CONNER, LIP, LIVP, TEGCR ####[id number] [place] [address] Anion gap 3 molar conc14 mmol/LNormal9-17Bethesda North HospitalComment on above:Performed By: #### ERTPF, CONNER, LIP, LIVP, TEGCR ####[address] [address] Calcium mass conc7.6 mg/dLLow8.6-10.4Bet[facility] North HospitalComment on above: Performed By: #### ERTPF, CONNER, LIP, LIVP, TEGCR ####[address] [address] Chloride molar jhcu047 mmol/YCxqi16-555 [facility] HospitalComment on above:Performed By: #### ERTPF, CONNER, LIP, LIVP, TEGCR ####[address] [place] [address] IZ3 molar conc18 mmol/KKil80-88SesbnBethesda North Hospital Comment on above:Performed By: #### ERTPF, CONNER, LIP, LIVP, TEGCR ####[address] [address] Creatinine mass conc3.53 mg/dLHigh0.70-1.20[facility] North HospitalComment on above:Performed By: #### ERTPF, CONNER, LIP, LIVP, TEGCR ####[facility] Gnesmbusozum[address] [place] [address] GFR, Amer22 mL/minLow>60[facility] North HospitalComment on above:Performed By: #### ERTPF, CONNER, LIP, LIVP, TEGCR ####[facility] Wimdgaempxnz0904 [place] [address] GFR,non Amer18 mL/minLow>60MerKindred HospitalComment on above: Performed By: #### ERTPF, CONNER, LIP, LIVP, TEGCR ####[facility] Xqimpztafmhh3778 [place] [address] Glucose mass upzu960 mg/dPYnmu41-21Jwbhx [facility] HospitalComment on above:Performed By: #### ERTPF, CONNER, LIP, LIVP, TEGCR ####[facility] [address] [place] [address] Potassium molar conc4.3 mmol/LNormal3.7-5.3[facility] Comment on above:Performed By: #### ERTPF, CONNER, LIP, LIVP, TEGCR ####[facility] [address]zbaiimzcdf4500 [place] [address] Sodium molar pfpf895 mmol/EEgmu922-020CkimyBethesda North HospitalComment on above:Performed By: #### ERTPF, CONNER, LIP, LIVP, TEGCR ####[facility] Skdenqcalfbl8752 [place] [address] Urea nitrogen mass conc66 mg/dLHigh6-20[facility] North HospitalComment on above:Performed By: #### ERTPF, CONNER, LIP, LIVP, TEGCR ####[facility] Jfaafjbiggkz0067 [place] [address] Blood Bank Specimenon 12-50-8310Qampg Bank SpecimenNOT REPORTEDNormalBethesda North HospitalCBCon 24-00-6292Weyzrfocmfz distribution width Auto Ratio (RBC) 18.7 %High11.8-14.4Bet[facility] North HospitalComment on above:Performed By: #### ERTPF, CONNER, LIP, LIVP, TEGCR ####Filomena [address]ys[address]jxc[address] [place], [place] [phone] Auto Volume Fraction (Bld)18.8 %Low 40.7-50.3[facility] HospitalComment on above:Performed By: #### ERTPF, CONNER, LIP, LIVP, TEGCR ####[facility] Tdonkzpqigpg[address] [place], [place] [phone])[phone] mass conc (Bld)5.5 g/dLCritically low13.0-17.0[facility] North HospitalComment on above:Performed By: #### ERTPF, CONNER, LIP, LIVP, TEGCR ####[facility] Nxgcjlfw[address] [place] [address] MCH Auto Entitic mass (RBC)30.6 eiKisisz79.2-33.5[facility] North HospitalComment on above:Performed By: #### ERTPF, CONNER, LIP, LIVP, TEGCR ####[place], [place] [phone])[phone] Auto mass conc (RBC)29.3 g/cCAuibxb92.4-34.8[facility] North HospitalComment on above: Performed By: #### ERTPF, CONNER, LIP, LIVP, TEGCR ####[facility] Qghvollouvze7577 [place] [address] MCV Auto Entitic volume (RBC)104.4 fLHigh 82.6-102.9[facility] North HospitalComment on above:Performed By: #### ERTPF, CONNER, LIP, LIVP, TEGCR ####[facility] Bvldhkdfjkhy8332 [place], [place] [phone] Automated1.3 per 100 WBCHigh0.0Bet[facility] North HospitalComment on above:Performed By: #### ERTPF, CONNER, LIP, LIVP, TEGCR ####Filomena Rojas[address] [place] [address] Platelet mean volume Auto Entitic volume (Bld)12.0 fLNormal8.1-13.5[facility] Comment on above:Performed By: #### ERTPF, CONNER, LIP, LIVP, TEGCR ####Filomena Rojas[address] [place] [address] Platelets Auto #/vol (Bld)421 10*3/nSOldcno898-626FelynBethesda North HospitalComment on above: Performed By: #### ERTPF, CONNER, LIP, LIVP, TEGCR ####[place] [address] RBC Auto #/vol (Bld)1.80 10*6/uLLow 4.21-5.77Bet[facility] North HospitalComment on above:Performed By: #### ERTPF, CONNER, LIP, LIVP, TEGCR ####[facility] [address] [address] WBC Auto #/vol (Bld)28.9 10*3/uLHigh3.5-11.3MRiverside Community HospitalComment on above:Performed By: #### ERTPF, CONNER, LIP, LIVP, TEGCR ####[address] [address] Cult,Bloodon 43-61-6680Ukie,BloodSpecimen Description .BLOOD Special Requests RT ARM 2ML Culture NO GROWTH 6 DAYS Report Status FINAL 02/05/2018NormalBethesda North HospitalComment on above:Performed By: #### ERTPF, CONNER, LIP, LIVP, TEGCR ####[address] [place] [phone],BloodSpecimen Description .BLOOD Special Requests RT ARM 5ML Culture NO GROWTH 6 DAYS Report Status FINAL 02/05/2018NormalBethesda North HospitalComment on above:Performed By: #### ERTPF, CONNER, LIP, LIVP, TEGCR ####Saritha[address] [address] Hgb/Hcton 22-78-0864Hcjqudfycn Auto Volume Fraction (Bld)22.9 %Low40.7-50.3[facility] HospitalComment on above:Performed By: #### ERTPF, CONNER, LIP, LIVP, TEGCR ####Filomena [address] [phone] mass conc (Bld)6.9 g/dLCritically low13.0-17.0Bet[facility] North HospitalComment on above:Performed By: #### ERTPF, CONNER, LIP, LIVP, TEGCR ####[facility] Wxydelzrq[address] [place] [address] TEG, Rapid Citratedon 54-93-1871CKO TEG 89.0 quiXtjhuu10-134EfcdaBethesda North HospitalComment on above:Performed By: #### ERTPF, CONNER, LIP, LIVP, TEGCR ####Filomena [address]byzj[address] [place] [address] Angle, Rapid TEG81.8 ajqQaho21-13RsvxrBethesda North HospitalComment on above:Performed By: #### ERTPF, CONNER, LIP, LIVP, TEGCR ####[address] [phone] TEG 2.0 %Normal0.0-15.0[facility] North HospitalComment on above:Performed By: #### ERTPF, CONNER, LIP, LIVP, TEGCR ####[facility] [address] [place] [address] Heparin Therapy:NoneNormalMerKindred HospitalComment on above:Performed By: #### ERTPF, CONNER, LIP, LIVP, TEGCR ####Filomena Hqhxmyjaj[address] [place] [address] K (Kinetics) rTEG0.8 minLow1.0-2.0Bet[facility] North HospitalComment on above:Performed By: #### ERTPF, CONNER, LIP, LIVP, TEGCR ####Filomena E[address]jerzr[address] [place] [phone] (Lysis) TEG2.0 %Normal0-8Bet[facility] North HospitalComment on above:Performed By: #### ERTPF, CONNER, LIP, LIVP, TEGCR ####Sarithaernie [address] [address] [place] Rapid TEG 81.9 ufFfsg49-29DwnmjBethesda North HospitalComment on above:Performed By: #### ERTPF, CONNER, LIP, LIVP, TEGCR ####Filomena [address]rgbelnyg[address] [place] [address] R(Reaction Time)rTEG0.4 minNormal0.0-1.0Bet[facility] North HospitalComment on above:Performed By: #### ERTPF, CONNER, LIP, LIVP, TEGCR ####[facility] [address]znktdpwadx[address] [place] [address] TEG CommentACT is the only FDA approved component of the Rapid TEG.NormalBethesda North HospitalComment on above:Performed By: #### ERTPF, CONNER, LIP, LIVP, TEGCR ####Filomena Fr[address]vms[address] [place] [address] Type + Screen on 68-87-9445Jkys + ScreenSample Expiration 02/08/2018 Arm Band Number [id number] ABO/Rh(D) A POSITIVE Antibody Screen NEGATIVE Unit Number [id number] Blood Component Type Leukocyte Reduced Red Cell Unit Division 00 Status of Unit TRANSFUSED Transfusion Status OK TO TRANSFUSE Crossmatch Result COMPATIBLE Unit Number [id number] Blood Component Type Leukocyte Reduced Red Cell Unit Division 00 Status of Unit TRANSFUSED Transfusion Status OK TO TRANSFUSE Crossmatch Result COMPATIBLENoalBethesda North HospitalComment on above:Performed By: #### ERTPF, CONNER, LIP, LIVP, TEGCR ####[facility] Vxrerrxnpwdm39[address] [place], [place] [phone] XR CHEST PORTABLEon 48-56-4252PW CHEST PORTABLEEXAMINATION:SINGLE XRAY VIEW OF THE CHEST02/05/2018 [...] Worsening pulmonary edemasuspected.Interpreted by:NADEGE Mcarthurigned by:Jack Jones MD02/05/18Final resultNormalMerKindred HospitalAmmoniaon 02-04-2018 Ammonia mass conc (P)40 umol/RXqjkss07-26CihlxBethesda North HospitalComment on above:Performed By: #### ERTPF, CONNER, LIP, LIVP, TEGCR ####[facility] Xcwzrnocrunr4167 [place] [address] Basic Metabolic Profon 39-27-7065SVG/CRE RatioNOT REPORTEDNormal9-20[facility] Comment on above:Performed By: #### ERTPF, CONNER, LIP, LIVP, TEGCR ####[facility] Yfonxldmkogi27[address] [place], [place] [phone]:NOT REPORTED [facility] HospitalComment on above:Performed By: #### ERTPF, CONNER, LIP, LIVP, TEGCR ####Filomena [address] [place] [phone] (cont.)NormalBethesda North HospitalComment on above: Result Comment: Average GFR for 50-59 years old: 93 mL/min/1.73sq mChronic Kidney Disease: <60 mL/min/1.73sq mKidney failure: <15 mL/min/1.73sq meGFR calculated using average adult body mass. Additional eGFR calculator available at:http://www.[facility]/multiple_crcl_2012.htmPerformed By: #### ERTPF, CONNER, LIP, LIVP, TEGCR ####[place] [address] [phone] gap 3 molar conc12 mmol/LNormal9-17[facility] North HospitalComment on above:Performed By: #### ERTPF, CONNER, LIP, LIVP, TEGCR ####[address] [address] Calcium mass conc7.8 mg/dLLow8.6-10.4[facility] North HospitalComment on above: Performed By: #### ERTPF, CONNER, LIP, LIVP, TEGCR ####[facility] P[address]hlqayz[address] [place] [address] Chloride molar oyxt487 mmol/NJaxo31-999 [facility] North HospitalComment on above:Performed By: #### ERTPF, CONNER, LIP, LIVP, TEGCR ####[facility] Aajgszvmdnmr0850 [place] [address] [phone] molar conc18 mmol/FNea07-77ScuigBethesda North Hospital Comment on above:Performed By: #### ERTPF, CONNER, LIP, LIVP, TEGCR ####[facility] Ogiucfwmxaiu4409 [place] [address] Creatinine mass conc3.52 mg/dLHigh0.70-1.20[facility] North HospitalComment on above:Performed By: #### ERTPF, CONNER, LIP, LIVP, TEGCR ####[facility] [address] [place] [address] GFR, Amer22 mL/minLow>60[facility] North HospitalComment on above:Performed By: #### ERTPF, CONNER, LIP, LIVP, TEGCR ####[facility] [address]theq[address] [place] [address] GFR,non Amer18 mL/minLow>60[facility] North HospitalComment on above: Performed By: #### ERTPF, CONNER, LIP, LIVP, TEGCR ####[facility] [address] [place] [address] Glucose mass mqcf876 mg/wTJjka77-51GyhesRiverside Community HospitalComment on above:Performed By: #### ERTPF, CONNER, LIP, LIVP, TEGCR ####[address] [address] Potassium molar conc4.4 mmol/LNormal3.7-5.3[facility]y [facility] Comment on above:Performed By: #### ERTPF, CONNER, LIP, LIVP, TEGCR ####[facility] Wioiyeutqcrt[address]86 [place] [address] Sodium molar hkmi395 mmol/CQzor662-155SinymBethesda North HospitalComment on above:Performed By: #### ERTPF, CONNER, LIP, LIVP, TEGCR ####[facility] [address]xpnobvl[address] [place] [address] Urea nitrogen mass conc64 mg/dLHigh6-20[facility] HospitalComment on above:Performed By: #### ERTPF, CONNER, LIP, LIVP, TEGCR ####[address] [place] [address] BUN/CRE Ratio NOT REPORTEDNormal9-20[facility] North HospitalComment on above:Performed By: #### ERTPF, CONNER, LIP, LIVP, TEGCR ####[address] [place] [address] Staging:NOT REPORTEDNormalBethesda North HospitalComment on above:Performed By: #### ERTPF, CONNER, LIP, LIVP, TEGCR ####[address] [address] (cont.)Normal [facility] North HospitalComment on above:Result Comment: Average GFR for 50-59 years old: 93 mL/min/1.73sq mChronic Kidney Disease: <60 mL/min/1.73sq mKidney failure: <15 mL/min/1.73sq meGFR calculated using average adult body mass. Additional eGFR calculator available at:http://www.[facility] [place] [facility]/multiple_crcl_2012.htmPerformed By: #### ERTPF, CONNER, LIP, LIVP, TEGCR ####[address] [place] [address] Anion gap 3 molar conc13 mmol/LNormal9-17[facility] HospitalComment on above:Performed By: #### ERTPF, CONNER, LIP, LIVP, TEGCR ####[address] [place] [address] Calcium mass conc7.5 mg/dLLow8.6-10.4[facility] North HospitalComment on above: Performed By: #### ERTPF, CONNER, LIP, LIVP, TEGCR ####[address] [place] [address] Chloride molar jrix768 mmol/FEmft37-699 [facility] HospitalComment on above:Performed By: #### ERTPF, CONNER, LIP, LIVP, TEGCR ####[address] [place] [address] ON4 molar conc19 mmol/KCvt71-71FoccbBethesda North Hospital Comment on above:Performed By: #### ERTPF, CONNER, LIP, LIVP, TEGCR ####[facility] [address] [place] [address] Creatinine mass conc3.36 mg/dLHigh0.70-1.20[facility] North HospitalComment on above:Performed By: #### ERTPF, CONNER, LIP, LIVP, TEGCR ####[address] [address] GFR, Amer23 mL/minLow>60[facility] North HospitalComment on above:Performed By: #### ERTPF, CONNER, LIP, LIVP, TEGCR ####[address] [address] GFR,non Amer19 mL/minLow>60[facility] HospitalComment on above: Performed By: #### ERTPF, CONNER, LIP, LIVP, TEGCR ####[address] [address] Glucose mass zklu165 mg/tPOoxo46-90DmmumRiverside Community HospitalComment on above:Performed By: #### ERTPF, CONNER, LIP, LIVP, TEGCR ####[address] [address] Potassium molar conc4.4 mmol/LNormal3.7-5.3MRiverside Community Hospital Comment on above:Performed By: #### ERTPF, CONNER, LIP, LIVP, TEGCR ####[address] [phone] molar flxu792 mmol/FZzib372-034DgjumBethesda North HospitalComment on above:Performed By: #### ERTPF, CONNER, LIP, LIVP, TEGCR ####Sarithay [address]ubbkjcyj[address] [place] [address] Urea nitrogen mass conc61 mg/dLHigh6-20[facility] HospitalComment on above:Performed By: #### ERTPF, CONNER, LIP, LIVP, TEGCR ####[facility] Uxpqciupluys4320 [place] [address] BUN/CRE Ratio NOT REPORTEDNoduke university hospital9-20[facility] HospitalComment on above:Performed By: #### ERTPF, CONNER, LIP, LIVP, TEGCR ####[address] [address] Staging:NOT REPORTEDNormalBethesda North HospitalComment on above:Performed By: #### ERTPF, CONNER, LIP, LIVP, TEGCR ####[facility] [address] [place] [address] (cont.)Normal [facility] North HospitalComment on above:Result Comment: Average GFR for 50-59 years old: 93 mL/min/1.73sq mChronic Kidney Disease: <60 mL/min/1.73sq mKidney failure: <15 mL/min/1.73sq meGFR calculated using average adult body mass. Additional eGFR calculator available at:http://www.[employer]/multiple_crcl_2012.htmPerformed By: #### ERTPF, CONNER, LIP, LIVP, TEGCR ####Saritha [address]frsmjxd2482 [place] [address] [phone] gap 3 molar conc15 mmol/LNormal9-17[facility] HospitalComment on above:Performed By: #### ERTPF, CONNER, LIP, LIVP, TEGCR ####[facility] [address]agefxc[address]hu[address] [place] [address] Calcium mass conc7.5 mg/dLLow8.6-10.4[facility] North HospitalComment on above: Performed By: #### ERTPF, CONNER, LIP, LIVP, TEGCR ####[facility] [address]xz[address]rmvl[address] [place] [address] Chloride molar vkwd445 mmol/WZsri43-605 [facility] HospitalComment on above:Performed By: #### ERTPF, CONNER, LIP, LIVP, TEGCR ####[place] [place] [address] BB1 molar conc17 mmol/ILja86-55JhqclBethesda North Hospital Comment on above:Performed By: #### ERTPF, CONNER, LIP, LIVP, TEGCR ####[address] [address] Creatinine mass conc3.20 mg/dLHigh0.70-1.20[facility] HospitalComment on above:Performed By: #### ERTPF, CONNER, LIP, LIVP, TEGCR ####[place] [place] [address] GFR, Amer24 mL/minLow>60[facility] HospitalComment on above:Performed By: #### ERTPF, CONNER, LIP, LIVP, TEGCR ####[facility] Zqcawjpxf[address]ir[address] [place] [address] GFR,non Amer20 mL/minLow>60[facility] HospitalComment on above: Performed By: #### ERTPF, CONNER, LIP, LIVP, TEGCR ####[place] [place] [address] Glucose mass rapr981 mg/xHBkep76-46Xbjqi [facility] Medical CenterComment on above:Performed By: #### ERTPF, CONNER, LIP, LIVP, TEGCR ####[address] [address] Potassium molar conc4.4 mmol/LNormal3.7-5.3[facility] Comment on above:Performed By: #### ERTPF, CONNER, LIP, LIVP, TEGCR ####[address] [address] Sodium molar wlvt071 mmol/RGelj386-206JoqcwBethesda North HospitalComment on above:Performed By: #### ERTPF, CONNER, LIP, LIVP, TEGCR ####[address] [address] Urea nitrogen mass conc57 mg/dLHigh6-20[facility] HospitalComment on above:Performed By: #### ERTPF, CONNER, LIP, LIVP, TEGCR ####[address] [phone]/CRE Ratio NOT REPORTEDNormal9-20[facility] HospitalComment on above:Performed By: #### ERTPF, CONNER, LIP, LIVP, TEGCR ####[address] [address] Staging:NOT REPORTEDNormalBethesda North HospitalComment on above:Performed By: #### ERTPF, CONNER, LIP, LIVP, TEGCR ####[address] [address] CBCon 89-23-7362Lkmoppkajht distribution width Auto Ratio (RBC)18.7 %High11.8-14.4 [facility] HospitalComment on above:Performed By: #### ERTPF, CONNER, LIP, LIVP, TEGCR ####[address] [address] Hematocrit Auto Volume Fraction (Bld)24.4 %Low40.7-50.3[facility]y [facility] HospitalComment on above:Performed By: #### ERTPF, CONNER, LIP, LIVP, TEGCR ####[place] [address] Hemoglobin mass conc (Bld)7.0 g/dLCritically low13.0-17.0[facility] HospitalComment on above:Performed By: #### ERTPF, CONNER, LIP, LIVP, TEGCR ####[place] [address] MCH Auto Entitic mass (RBC)30.3 keAviuzo37.2-33.5[facility] HospitalComment on above:Performed By: #### ERTPF, CONNER, LIP, LIVP, TEGCR ####[place] [address] MCHC Auto mass conc (RBC)28.7 g/gXTiixvp73.4-34.8[facility] HospitalComment on above: Performed By: #### ERTPF, CONNER, LIP, LIVP, TEGCR ####[address] [address] MCV Auto Entitic volume (RBC)105.6 fLHigh 82.6-102.9[facility] North HospitalComment on above:Performed By: #### ERTPF, CONNER, LIP, LIVP, TEGCR ####[place] [address] NRBC Automated2.0 per 100 WBCHigh0.0[facility] HospitalComment on above:Performed By: #### ERTPF, CONNER, LIP, LIVP, TEGCR ####[place] [address] Platelet mean volume Auto Entitic volume (Bld)12.0 fLNormal8.1-13.5[facility] Comment on above:Performed By: #### ERTPF, CONNER, LIP, LIVP, TEGCR ####[facility] [address] [place] [address] Platelets Auto #/vol (Bld)433 10*3/pWLsjfbe800-218AfpcuBethesda North HospitalComment on above: Performed By: #### ERTPF, CONNER, LIP, LIVP, TEGCR ####[address] [address] RBC Auto #/vol (Bld)2.31 10*6/uLLow 4.21-5.77[facility] HospitalComment on above:Performed By: #### ERTPF, CONNER, LIP, LIVP, TEGCR ####[address] [address] WBC Auto #/vol (Bld)31.9 10*3/uLCritically high3.5-11.3MRiverside Community HospitalComment on above:Performed By: #### ERTPF, CONNER, LIP, LIVP, TEGCR ####[address] [address] Creatinine,Random Uron 47-41-3419Sqcwibuwha mass conc50.3 mg/eSLbacxd56.0-259.0 [facility] HospitalComment on above:Performed By: #### ERTPF, CONNER, LIP, LIVP, TEGCR ####[address] [address] Cult,Aerobe/Anaerobeon 81-84-6190Ifzu,Aerobe/AnaerobeSpecimen Description .ABDOMEN .DRAINAGE SWABSpecial Requests NOT REPORTEDDirect Exam MANY NEUTROPHILS NO BACTERIA SEEN Culture NO GROWTH 5 DAYSReport Status FINAL 02/04/2018NormalBethesda North HospitalComment on above:Performed By: #### ERTPF, CONNER, LIP, LIVP, TEGCR ####[facility] [address]fex[address]lgdjksd[address] [place] [address] Lactate, Sepsison 33-40-6961Ghkyak Acid,Sep Wbld1.1 mmol/L Normal0.5-1.9[facility] HospitalComment on above:Performed By: #### ERTPF, CONNER, LIP, LIVP, TEGCR ####[facility] Ikdrzldgjxgs5811 [place] [address] Lactic Acid, SepsisNOT REPORTEDNormal0.5-1.9[facility] HospitalComment on above:Performed By: #### ERTPF, CONNER, LIP, LIVP, TEGCR ####[facility] [address] [place] [address] Liver Profile on 54-60-5175Gxoyprb mass conc1.9 g/dLLow3.5-5.2MRiverside Community Hospital Comment on above:Performed By: #### ERTPF, CONNER, LIP, LIVP, TEGCR ####[facility] I[address]kegdzsvn[address]47 [place] [address] Albumin/Globulin mass ratio0.5 {ratio}Low1.0-2.5[facility] HospitalComment on above: Performed By: #### ERTPF, CONNER, LIP, LIVP, TEGCR ####[facility] [address]gtwhuezgg[address] [place] [address] Alkaline Phos80 U/GVswopw65-045GvkusBethesda North HospitalComment on above:Performed By: #### ERTPF, CONNER, LIP, LIVP, TEGCR ####[facility] Orzymzduwrqf4099 [place] [address] ALT enzyme act/vol15 U/LNormal5-41[facility] HospitalComment on above: Performed By: #### ERTPF, CONNER, LIP, LIVP, TEGCR ####[facility] [address]bosgfv[address] [place] [phone] enzyme act/vol39 U/LNormal<40[facility] HospitalComment on above:Performed By: #### ERTPF, CONNER, LIP, LIVP, TEGCR ####[place] [place] [address] Bilirubin Ql (U)0.46 mg/dLNormal0.3-1.2MRiverside Community HospitalComment on above:Performed By: #### ERTPF, CONNER, LIP, LIVP, TEGCR ####[address] [address] Bilirubin, Indirect0.18 mg/dLNormal0.00-1.00[facility] HospitalComment on above:Performed By: #### ERTPF, CONNER, LIP, LIVP, TEGCR ####[address] [address] Bilirubin.direct mass conc0.28 mg/dLNormal<0.31 [facility] HospitalComment on above:Performed By: #### ERTPF, CONENR, LIP, LIVP, TEGCR ####[place] [place] [address] Protein mass conc6.1 g/dLLow6.4-8.3MRiverside Community HospitalComment on above:Performed By: #### ERTPF, CONNER, LIP, LIVP, TEGCR ####[facility] [address]zz[address]ht[address] [place] [address] Globulin Calculated mass conc (S)NOT REPORTEDNormal1.5-3.8[facility] HospitalComment on above:Performed By: #### ERTPF, CONNER, LIP, LIVP, TEGCR ####[address] [address] Osmolalityon 02-04-2018 Asuauzkdic752 mOsm/kgCritically twlq604-152DpiuiBethesda North Hospital Comment on above:Performed By: #### ERTPF, CONNER, LIP, LIVP, TEGCR ####Sarithay [address]udrij[address] [place], [place] [phone], Urineon 25-40-6462Nyqqfyxccu - Uzfhc350 mOsm/rbGwmjbo62-0171XorncBethesda North HospitalComment on above:Performed By: #### ERTPF, CONNER, LIP, LIVP, TEGCR ####Sarithay [address]lxevzxvejqj80[address] [place] [address] Sodium, Random Uron 19-61-9455Df Conc. Urine26 mmol/LNormalBethesda North HospitalComment on above:Result Comment: No normal range established.Performed By: #### ERTPF, CONNER, LIP, LIVP, TEGCR ####[id number] [place] [address] [phone] Metabolic Profon 02-03-2018(cont.)NormalBethesda North HospitalComment on above:Result Comment: Average GFR for 50-59 years old: 93 mL/min/1.73sq mChronic Kidney Disease: <60 mL/min/1.73sq mKidney failure: <15 mL/min/1.73sq meGFR calculated using average adult body mass. Additional eGFR calculator available at:http://[email or web address] [email or web address]_[email or web address] By: #### ERTPF, CONNER, LIP, LIVP, TEGCR ####[facility] [address] [place], [place] [phone] gap 3 molar conc5 mmol/LLow9-17Bet[facility] North HospitalComment on above:Performed By: #### ERTPF, CONNER, LIP, LIVP, TEGCR ####[facility] [address] [place] [address] Calcium mass conc7.4 mg/dLLow8.6-10.4Bet[facility] North HospitalComment on above: Performed By: #### ERTPF, CONNER, LIP, LIVP, TEGCR ####[address] [address] Chloride molar uebk560 mmol/FYpgb87-200 [facility] North HospitalComment on above:Performed By: #### ERTPF, CONNER, LIP, LIVP, TEGCR ####[address] [address] JT5 molar conc20 mmol/PLlrnzw49-29StazfBethesda North Hospital Comment on above:Performed By: #### ERTPF, CONNER, LIP, LIVP, TEGCR ####[address] [address] Creatinine mass conc1.94 mg/dLHigh0.70-1.20Bet[facility] North HospitalComment on above:Performed By: #### ERTPF, CONNER, LIP, LIVP, TEGCR ####[address] [address] GFR, Amer43 mL/minLow>60Bet[facility] North HospitalComment on above:Performed By: #### ERTPF, CONNER, LIP, LIVP, TEGCR ####[address] [address] GFR,non Amer36 mL/minLow>60Bethesda North HospitalComment on above: Performed By: #### ERTPF, CONNER, LIP, LIVP, TEGCR ####[address] [address] Glucose mass cpll957 mg/cUMczg25-59EwekqRiverside Community HospitalComment on above:Performed By: #### ERTPF, CONNER, LIP, LIVP, TEGCR ####[address] [address] Potassium molar conc4.1 mmol/LNormal3.7-5.3[facility] Comment on above:Performed By: #### ERTPF, CONNER, LIP, LIVP, TEGCR ####[facility] Xkwuxpfwrwjj37[address] [place] [address] Sodium molar ctyv521 mmol/JWloa420-143RxwcyBethesda North HospitalComment on above:Performed By: #### ERTPF, CONNER, LIP, LIVP, TEGCR ####[facility] Kguelnadrcsi[address] [place] [address] Urea nitrogen mass conc34 mg/dLHigh6-20[facility] North HospitalComment on above:Performed By: #### ERTPF, CONNER, LIP, LIVP, TEGCR ####[address] [place] [address] BUN/CRE Ratio NOT REPORTEDNormal920Bet[facility]da North HospitalComment on above:Performed By: #### ERTPF, CONNER, LIP, LIVP, TEGCR ####[facility] [address]ttpsm[address]iv[address] [place] [address] Staging:NOT REPORTEDNormalBethesda North HospitalComment on above:Performed By: #### ERTPF, CONNER, LIP, LIVP, TEGCR ####[facility] [address] [place] [address] (cont.)Normal [facility] North HospitalComment on above:Result Comment: Average GFR for 50-59 years old: 93 mL/min/1.73sq mChronic Kidney Disease: <60 mL/min/1.73sq mKidney failure: <15 mL/min/1.73sq meGFR calculated using average adult body mass. Additional eGFR calculator available at:http://www.[employer].Medical Simulation/multiple_crcl_2012.htmPerformed By: #### ERTPF, CONNER, LIP, LIVP, TEGCR ####[facility] [address]zhdyh[address] [place] [address] Anion gap 3 molar conc14 mmol/LNormal9-17[facility] HospitalComment on above:Performed By: #### ERTPF, CONNER, LIP, LIVP, TEGCR ####[facility] Ivgnsiodluxs5183 [place] [address] Calcium mass conc7.7 mg/dLLow8.6-10.4[facility] North HospitalComment on above: Performed By: #### ERTPF, CONNER, LIP, LIVP, TEGCR ####[facility] [address]ir[address]fhi[address]38 [place] [address] Chloride molar jgte182 mmol/MQczu71-608 [facility] HospitalComment on above:Performed By: #### ERTPF, CONNER, LIP, LIVP, TEGCR ####[facility] Dwflxvlwsewi0990 [place] [address] UE1 molar conc20 mmol/IKptxrz06-91PdrxeBethesda North Hospital Comment on above:Performed By: #### ERTPF, CONNER, LIP, LIVP, TEGCR ####[facility] Tvaamzdvchuf[address] [place] [address] Creatinine mass conc1.72 mg/dLHigh0.70-1.20[facility] North HospitalComment on above:Performed By: #### ERTPF, CONNER, LIP, LIVP, TEGCR ####[facility] M[address]cenhwkynx6407 [place] [address] GFR, Amer50 mL/minLow>60[facility] North HospitalComment on above:Performed By: #### ERTPF, CONNER, LIP, LIVP, TEGCR ####[facility] Unhjzozfohgb0092 [place] [address] GFR,non Amer41 mL/minLow>60[facility] North HospitalComment on above: Performed By: #### ERTPF, CONNER, LIP, LIVP, TEGCR ####[facility] Elfbwxfdrxki7895 [place] [address] Glucose mass wrji359 mg/cGBwal31-10Sbhpz [facility] HospitalComment on above:Performed By: #### ERTPF, CONNER, LIP, LIVP, TEGCR ####[facility] Wbxkepyenhbq0418 [place] [address] Potassium molar conc4.5 mmol/LNormal3.7-5.3[facility] Comment on above:Performed By: #### ERTPF, CONNER, LIP, LIVP, TEGCR ####[facility] [address] [place] [address] Sodium molar vsda392 mmol/PDano220-677PowcuBethesda North HospitalComment on above:Performed By: #### ERTPF, CONNER, LIP, LIVP, TEGCR ####[facility] [address] [place] [address] Urea nitrogen mass conc30 mg/dLHigh6-20[facility] HospitalComment on above:Performed By: #### ERTPF, CONNER, LIP, LIVP, TEGCR ####[facility] Tikifiigwsde4532 [place] [address] BUN/CRE Ratio NOT REPORTEDNormal9-20[facility] North HospitalComment on above:Performed By: #### ERTPF, CONNER, LIP, LIVP, TEGCR ####[facility] Wsliipibfayx[address] [place] [address] Staging:NOT REPORTEDNormalBethesda North HospitalComment on above:Performed By: #### ERTPF, CONNER, LIP, LIVP, TEGCR ####[facility] Utzjmagpacbz5217 [place] [address] CBCon 25-55-8487Fdjhsaqjdcq distribution width Auto Ratio (RBC)18.5 %High11.8-14.4 [facility] North HospitalComment on above:Performed By: #### ERTPF, CONNER, LIP, LIVP, TEGCR ####[address] [place] [address] [phone] Auto Volume Fraction (Bld)27.9 %Low40.7-50.3MRiverside Community HospitalComment on above:Performed By: #### ERTPF, CONNER, LIP, LIVP, TEGCR ####[facility] Urnijbszumbj[address] [place] [address] Hemoglobin mass conc (Bld)7.6 g/dLLow13.0-17.0[facility] Comment on above:Performed By: #### ERTPF, CONNER, LIP, LIVP, TEGCR ####[address] [address] MCH Auto Entitic mass (RBC)30.3 jjHaiafg59.2-33.5Bet[facility] North HospitalComment on above: Performed By: #### ERTPF, CONNER, LIP, LIVP, TEGCR ####[facility] [place] [address] MCHC Auto mass conc (RBC)27.2 g/dLLow 28.4-34.8[facility] North HospitalComment on above:Performed By: #### ERTPF, CONNER, LIP, LIVP, TEGCR ####[facility] Gegwfbnqbopf5960 [place] [address] MCV Auto Entitic volume (RBC)111.2 cHSbai27.6-102.9[facility] North HospitalComment on above:Performed By: #### ERTPF, CONNER, LIP, LIVP, TEGCR ####[facility] [place] [address] NRBC Automated1.0 per 100 WBCHigh0.0Bet[facility] North HospitalComment on above: Performed By: #### ERTPF, CONNER, LIP, LIVP, TEGCR ####Filomena Rojas[address] [place] [address] Platelet mean volume Auto Entitic volume (Bld)11.3 fLNormal8.1-13.5[facility] North HospitalComment on above: Performed By: #### ERTPF, CONNER, LIP, LIVP, TEGCR ####[place] [address] Platelets Auto #/vol (Bld)533 10*3/uLHigh 138-453Bet[facility] North HospitalComment on above:Performed By: #### ERTPF, CONNER, LIP, LIVP, TEGCR ####[place] [address] RBC Auto #/vol (Bld)2.51 10*6/uLLow4.21-5.77[facility] HospitalComment on above:Performed By: #### ERTPF, CONNER, LIP, LIVP, TEGCR ####[place] [address] WBC Auto #/vol (Bld)33.5 10*3/uLCritically high3.5-11.3MercSutter Roseville Medical CenterComment on above:Performed By: #### ERTPF, CONNER, LIP, LIVP, TEGCR ####[place] [address] Erythrocyte distribution width Auto Ratio (RBC)18.2 %High11.8-14.4[facility] Comment on above:Performed By: #### ERTPF, CONNER, LIP, LIVP, TEGCR ####[facility] [address] [address] Hematocrit Auto Volume Fraction (Bld)29.0 %Low40.7-50.3[facility] HospitalComment on above:Performed By: #### ERTPF, CONNER, LIP, LIVP, TEGCR ####[facility] [address] [place] [address] Hemoglobin mass conc (Bld)8.1 g/dLLow 13.0-17.0[facility] North HospitalComment on above:Performed By: #### ERTPF, CONNER, LIP, LIVP, TEGCR ####[place] [address] MCH Auto Entitic mass (RBC)30.5 ztMgegpx78.2-33.5[facility] North HospitalComment on above:Performed By: #### ERTPF, CONNER, LIP, LIVP, TEGCR ####[place] [address] MCHC Auto mass conc (RBC)27.9 g/dLLow28.4-34.8[facility] North HospitalComment on above:Performed By: #### ERTPF, CONNER, LIP, LIVP, TEGCR ####[place] [address] MCV Auto Entitic volume (RBC)109.0 mDXdrn50.6-102.9[facility] North HospitalComment on above: Performed By: #### ERTPF, CONNER, LIP, LIVP, TEGCR ####[place] [address] NRBC Automated1.6 per 100 WBCHigh0.0[facility] North HospitalComment on above:Performed By: #### ERTPF, CONNER, LIP, LIVP, TEGCR ####[place] [address] Platelet mean volume Auto Entitic volume (Bld)11.1 fLNormal8.1-13.5[facility] North HospitalComment on above:Performed By: #### ERTPF, CONNER, LIP, LIVP, TEGCR ####[facility] C[address]arwudqvnh67[address] [place] [address] Platelets Auto #/vol (Bld)576 10*3/uNEdtj985-953FpzsfBethesda North Hospital Comment on above:Performed By: #### ERTPF, CONNER, LIP, LIVP, TEGCR ####[address] [phone] Auto #/vol (Bld)2.66 10*6/uLLow4.21-5.77[facility] HospitalComment on above:Performed By: #### ERTPF, CONNER, LIP, LIVP, TEGCR ####[address] [address] WBC Auto #/vol (Bld)30.0 10*3/uLHigh3.5-11.3 [facility] HospitalComment on above:Performed By: #### ERTPF, CONNER, LIP, LIVP, TEGCR ####[address] [address] Cult,Bloodon 50-18-1293Bkdm,BloodSpecimen Description .BLOOD Special Requests RT FOREARM 6 ML Culture NO GROWTH 6 DAYS Report Status FINAL 02/03/2018[facility] HospitalComment on above:Performed By: #### ERTPF, CONNER, LIP, LIVP, TEGCR ####[address] [address] Cult,BloodSpecimen Description .BLOOD Special Requests 1ML RT HAND Culture NO GROWTH 6 DAYS Report Status FINAL 02/03/2018[facility] HospitalComment on above:Performed By: #### ERTPF, CONNER, LIP, LIVP, TEGCR ####[address] [address] Lactic Acid,Whole Blon 12-22-3249Vhotun Acid,Whole Bl2.0 mmol/LNormal0.7-2.1[facility]y [facility] HospitalComment on above:Performed By: #### ERTPF, CONNER, LIP, LIVP, TEGCR ####[facility] [address]rluzkmcz[address] [place] [address] Magnesiumon 82-98-5869Rsxnccxpy mass conc2.1 mg/dLNormal1.6-2.6MRiverside Community HospitalComment on above: Performed By: #### ERTPF, CONNER, LIP, LIVP, TEGCR ####[address] [address] Magnesium mass conc2.4 mg/dLNormal1.6-2.6 [facility] HospitalComment on above:Performed By: #### ERTPF, CONNER, LIP, LIVP, TEGCR ####[address] [address] NA (Sodium)on 12-38-0301Rgnxbi molar yqvc967 mmol/LKzzb729-875 [facility] HospitalComment on above:Performed By: #### ERTPF, CONNER, LIP, LIVP, TEGCR ####[address] [place] [address] Sodium molar lheq128 mmol/TJppl324-881AcyioBethesda North HospitalComment on above:Performed By: #### ERTPF, CONNER, LIP, LIVP, TEGCR ####[facility] [address]qmbhcfv3462 [place] [address] Phosphorus, Inorg.on 23-13-3431Jywmzuzbqz, Inorg.2.0 mg/dLLow2.5-4.5[facility] Comment on above:Performed By: #### ERTPF, CONNER, LIP, LIVP, TEGCR ####[address] [address] Phosphorus, Inorg.3.2 mg/dLNormal2.5-4.5[facility] HospitalComment on above:Performed By: #### ERTPF, CONNER, LIP, LIVP, TEGCR ####[facility]a [address]yti[address] [place] [address] XR CHEST PORTABLEon 07-83-6885TZ CHEST PORTABLE EXAMINATION:SINGLE XRAY VIEW OF THE [...] and lines.Interpreted by:NADEGE Romeroigned by:Ramakrishna Santana MD02/03/18Final resultNormalBethesda North Hospital Basic Metabolic Profon 02-02-2018(cont.)NormalBethesda North Hospital Comment on above:Result Comment: Average GFR for 50-59 years old: 93 mL/min/1.73sq mChronic Kidney Disease: <60 mL/min/1.73sq mKidney failure: <15 mL/min/1.73sq meGFR calculated using average adult body mass. Additional eGFR calculator available at:http://www.Hidden[employer].com/multiple_crcl_2012.htmPerformed By: #### ERTPF, CONNER, LIP, LIVP, TEGCR ####[address] F[address]zvbobjs[address]15 [place] [address] Anion gap 3 molar conc14 mmol/LNormal9-17[facility] North HospitalComment on above:Performed By: #### ERTPF, CONNER, LIP, LIVP, TEGCR ####[facility] [address]ui[address] [place] [address] Calcium mass conc7.6 mg/dLLow8.6-10.4[facility] North HospitalComment on above:Performed By: #### ERTPF, CONNER, LIP, LIVP, TEGCR ####[address] [place] [address] Chloride molar gsts198 mmol/TKrcv30-252 [facility] HospitalComment on above:Performed By: #### ERTPF, CONNER, LIP, LIVP, TEGCR ####[address] [address] PA7 molar conc20 mmol/WEvqxey21-71RhfwdBethesda North Hospital Comment on above:Performed By: #### ERTPF, CONNER, LIP, LIVP, TEGCR ####[address] [address] Creatinine mass conc1.57 mg/dLHigh0.70-1.20[facility] North HospitalComment on above:Performed By: #### ERTPF, CONNER, LIP, LIVP, TEGCR ####[address] [address] GFR, Amer55 mL/minLow>60[facility] North HospitalComment on above:Performed By: #### ERTPF, CONNER, LIP, LIVP, TEGCR ####[address] [address] GFR,non Amer46 mL/minLow>60[facility] HospitalComment on above: Performed By: #### ERTPF, CONNER, LIP, LIVP, TEGCR ####[address] [place] [address] Glucose mass kcqu675 mg/nQOgsm75-75UpvifSutter Roseville Medical CenterComment on above:Performed By: #### ERTPF, CONNER, LIP, LIVP, TEGCR ####[address] [place] [address] Potassium molar conc3.8 mmol/LNormal3.7-5.3[facility] Comment on above:Performed By: #### ERTPF, CONNER, LIP, LIVP, TEGCR ####[address] [address] Sodium molar njhj875 mmol/NCynj789-015SqgouBethesda North HospitalComment on above:Performed By: #### ERTPF, CONNER, LIP, LIVP, TEGCR ####[address] [address] Urea nitrogen mass conc30 mg/dLHigh6-20[facility] HospitalComment on above:Performed By: #### ERTPF, CONNER, LIP, LIVP, TEGCR ####[address] [address] BUN/CRE Ratio NOT REPORTEDNoal9-20[facility] HospitalComment on above:Performed By: #### ERTPF, CONNER, LIP, LIVP, TEGCR ####[address] [address] Staging:NOT REPORTEDNormalBethesda North HospitalComment on above:Performed By: #### ERTPF, CONNER, LIP, LIVP, TEGCR ####[address] [address] CBCon 52-09-7038Unmvhgwudyo distribution width Auto Ratio (RBC)18.4 %High11.8-14.4 [facility] HospitalComment on above:Performed By: #### ERTPF, CONNER, LIP, LIVP, TEGCR ####[address] [address] Hematocrit Auto Volume Fraction (Bld)29.2 %Low40.7-50.3[facility] HospitalComment on above:Performed By: #### ERTPF, CONNER, LIP, LIVP, TEGCR ####[facility] [address]af[address]16 [place] [address] Hemoglobin mass conc (Bld)8.3 g/dLLow13.0-17.0[facility] Comment on above:Performed By: #### ERTPF, CONNER, LIP, LIVP, TEGCR ####[facility] [address] [place] [address] MCH Auto Entitic mass (RBC)30.1 ypEtdfyr40.2-33.5[facility] HospitalComment on above: Performed By: #### ERTPF, CONNER, LIP, LIVP, TEGCR ####[facility] [address] [place] [address] MCHC Auto mass conc (RBC)28.4 g/dLNormal 28.4-34.8[facility] HospitalComment on above:Performed By: #### ERTPF, CONNER, LIP, LIVP, TEGCR ####[facility] [address] [place] [address] MCV Auto Entitic volume (RBC)105.8 bFGltw99.6-102.9[facility] HospitalComment on above:Performed By: #### ERTPF, CONNER, LIP, LIVP, TEGCR ####[facility] [address]tl[address]ytyptgsz[address] [place], [place] [phone] Automated1.1 per 100 WBCHigh0.0[facility] North HospitalComment on above: Performed By: #### ERTPF, CONNER, LIP, LIVP, TEGCR ####[facility] [address]fx[address]rywkw[address] [place], [place] [phone] mean volume Auto Entitic volume (Bld)11.0 fLNormal8.1-13.5[facility] HospitalComment on above: Performed By: #### ERTPF, CONNER, LIP, LIVP, TEGCR ####Filomena Rojas[address] [place] [address] Platelets Auto #/vol (Bld)675 10*3/uLHigh 138-453[facility] HospitalComment on above:Performed By: #### ERTPF, CONNER, LIP, LIVP, TEGCR ####Filomena Rojas[address] [place] [address] RBC Auto #/vol (Bld)2.76 10*6/uLLow4.21-5.77[facility] HospitalComment on above:Performed By: #### ERTPF, CONNER, LIP, LIVP, TEGCR ####[address] [address] WBC Auto #/vol (Bld)31.5 10*3/uLCritically high3.5-11.3MRiverside Community HospitalComment on above:Performed By: #### ERTPF, CONNER, LIP, LIVP, TEGCR ####Filomena Rojas[address] [place] [address] Calcium, Ionicon 92-48-9234Inyulnu mass conc1.11 mmol/LLow1.13-1.33[facility] HospitalComment on above:Performed By: #### ERTPF, CONNER, LIP, LIVP, TEGCR ####[address]a [address] [place] [address] Creatinine,Random Uron 08-49-4387Oknwtaqhtf mass conc48.7 mg/aQJlhxqa28.0-259.0[facility] HospitalComment on above:Performed By: #### ERTPF, CONNER, LIP, LIVP, TEGCR ####[address]a [address] [place] [address] NA (Sodium)on 63-67-8958Kaxwsd molar vclt281 mmol/LCritically hdta890-033OdktgBethesda North HospitalComment on above:Performed By: #### ERTPF, CONNER, LIP, LIVP, TEGCR ####[address] [place] [address] Sodium molar quum981 mmol/LIeqc430-750FaecuBethesda North HospitalComment on above: Performed By: #### ERTPF, CONNER, LIP, LIVP, TEGCR ####[facility] [address] [place] [address] Sodium molar resr770 mmol/AXigm875-687 [facility] HospitalComment on above:Performed By: #### ERTPF, CONNER, LIP, LIVP, TEGCR ####[address] [address] Osmolalityon 64-84-1696Jihlntmzzn999 mOsm/kgCritically ezul963-892 [facility] HospitalComment on above:Result Comment: ADDED ON Performed By: #### ERTPF, CONNER, LIP, LIVP, TEGCR ####[address] [address] Osmolality, Urineon 94-11-9357Oaycrqrqfj - Cyqzr938 mOsm/djXbzsgu56-8037PivnzBethesda North HospitalComment on above: Performed By: #### ERTPF, CONNER, LIP, LIVP, TEGCR ####[facility] [address]ui[address]ple[address] [place] [address] Sodium, Random Uron 31-33-0469Ya Conc. Urine38 mmol/LNormalBethesda North HospitalComment on above:Result Comment: No normal range established.Performed By: #### ERTPF, CONNER, LIP, LIVP, TEGCR ####[address] [address] Basic Metabolic Profon 02-01-2018(cont.)NormalBethesda North HospitalComment on above:Result Comment: Average GFR for 50-59 years old: 93 mL/min/1.73sq mChronic Kidney Disease: <60 mL/min/1.73sq mKidney failure: <15 mL/min/1.73sq meGFR calculated using average adult body mass. Additional eGFR calculator available at:http://www.[employer]/multiple_crcl_2012.htmPerformed By: #### ERTPF, CONNER, LIP, LIVP, TEGCR ####[facility] [address] [place] [address] Anion gap 3 molar conc15 mmol/LNormal9-17[facility] HospitalComment on above:Performed By: #### ERTPF, CONNER, LIP, LIVP, TEGCR ####[address] [address] Calcium mass conc7.6 mg/dLLow8.6-10.4[facility] HospitalComment on above: Performed By: #### ERTPF, CONNER, LIP, LIVP, TEGCR ####[place] [place] [address] Chloride molar rjwx532 mmol/WSokk96-174 [facility] HospitalComment on above:Performed By: #### ERTPF, CONNER, LIP, LIVP, TEGCR ####[facility] [address] [place] [address] UJ0 molar conc22 mmol/IOntmra43-60PlrfsBethesda North Hospital Comment on above:Performed By: #### ERTPF, CONNER, LIP, LIVP, TEGCR ####[place] [address] [place] [address] Creatinine mass conc1.43 mg/dLHigh0.70-1.20[facility] HospitalComment on above:Performed By: #### ERTPF, CONNER, LIP, LIVP, TEGCR ####[facility] [address]aswdiqgo[address] [place] [address] GFR, Amer>60Normal>60[facility] HospitalComment on above:Performed By: #### ERTPF, CONNER, LIP, LIVP, TEGCR ####[facility] [address]cl[address] [place] [address] GFR,non Amer51 mL/minLow>60[facility] HospitalComment on above: Performed By: #### ERTPF, CONNER, LIP, LIVP, TEGCR ####[facility] [address]gafhhdpni4423 [place] [address] Glucose mass kitz150 mg/qJZbey04-93FhmkrRiverside Community HospitalComment on above:Performed By: #### ERTPF, CONNER, LIP, LIVP, TEGCR ####[facility] [address] [place] [address] Potassium molar conc3.8 mmol/LNormal3.7-5.3[facility] Comment on above:Performed By: #### ERTPF, CONNER, LIP, LIVP, TEGCR ####[facility] [address]mbhnetxw[address]27 [place] [address] Sodium molar rksu109 mmol/ZBlee695-248GhosmBethesda North HospitalComment on above:Performed By: #### ERTPF, CONNER, LIP, LIVP, TEGCR ####[facility] [address]uskdjea[address] [place] [address] Urea nitrogen mass conc25 mg/dLHigh6-20[facility] HospitalComment on above:Performed By: #### ERTPF, CONNER, LIP, LIVP, TEGCR ####[facility] [address]sphbjfwitf[address]8 [place] [address] BUN/CRE Ratio NOT REPORTEDNormal9-20[facility] HospitalComment on above:Performed By: #### ERTPF, CONNER, LIP, LIVP, TEGCR ####[place] [address] Staging:NOT REPORTEDNormalBethesda North HospitalComment on above:Performed By: #### ERTPF, CONNER, LIP, LIVP, TEGCR ####[place] [address] CBC with Diff on 83-13-9020Klr. Basophil0.00 k/uLNormal0.0-0.2MRiverside Community Hospital Comment on above:Performed By: #### ERTPF, CONNER, LIP, LIVP, TEGCR ####[place] [address] Abs.Imm.Granulocyte0.95 k/uLHigh0.00-0.30[facility] HospitalComment on above:Performed By: #### ERTPF, CONNER, LIP, LIVP, TEGCR ####[place] [address] Abs.Neutrophil (Seg)19.43 k/uLHigh1.8-7.7[facility] HospitalComment on above:Performed By: #### ERTPF, CONNER, LIP, LIVP, TEGCR ####[place] [address] Basophils/100 WBC Auto (Bld)0 %Normal0-2MRiverside Community HospitalComment on above: Performed By: #### ERTPF, CONNER, LIP, LIVP, TEGCR ####[place] [address] Eosinophils Auto #/vol (Bld)0.24 10*3/uL Normal0.0-0.4[facility] HospitalComment on above:Performed By: #### ERTPF, CONNER, LIP, LIVP, TEGCR ####[address] [address] Eosinophils/100 WBC Auto (Bld)1 %Normal1-4[facility] HospitalComment on above:Performed By: #### ERTPF, CONNER, LIP, LIVP, TEGCR ####[address] [address] Immature granulocytes #/vol (Bld)4 %Fhbz4SjyyfBethesda North HospitalComment on above:Performed By: #### ERTPF, CONNER, LIP, LIVP, TEGCR ####[address] [address] Lymphocytes Auto #/vol (Bld)2.13 10*3/uL Normal1.0-4.8[facility] HospitalComment on above:Performed By: #### ERTPF, CONNER, LIP, LIVP, TEGCR ####[address] [address] Lymphocytes/100 WBC Auto (Bld)9 %Zbu01-26YkdgvBethesda North HospitalComment on above:Performed By: #### ERTPF, CONNER, LIP, LIVP, TEGCR ####[address] [address] Monocytes Auto #/vol (Bld)0.95 10*3/uLHigh0.1-0.8[facility] HospitalComment on above:Performed By: #### ERTPF, CONNER, LIP, LIVP, TEGCR ####[address] [address] Monocytes/100 WBC Auto (Bld)4 %Normal1-7 [facility] HospitalComment on above:Performed By: #### ERTPF, CONNER, LIP, LIVP, TEGCR ####[address] [address] [phone] Interp Eduard (Bld)ANISOCYTOSIS PRESENTNormalBethesda North HospitalComment on above:Result Comment: MACROCYTOSIS PRESENT Performed By: #### ERTPF, CONNER, LIP, LIVP, TEGCR ####[facility] [address] [place] [address] Neutrophil (Seg)82 %Qorl40-87NtjhwBethesda North HospitalComment on above:Performed By: #### ERTPF, CONNER, LIP, LIVP, TEGCR ####[address] [address] Nucleated RBC/100 WBC Ratio (Bld)1 per 100 SIAWngp8FdwaiBethesda North HospitalComment on above:Performed By: #### ERTPF, CONNER, LIP, LIVP, TEGCR ####[address] [address] Erythrocyte distribution width Auto Ratio (RBC)18.3 %High11.8-14.4[facility] HospitalComment on above:Performed By: #### ERTPF, CONNER, LIP, LIVP, TEGCR ####[address] [address] Hematocrit Auto Volume Fraction (Bld)33.7 %Low40.7-50.3[facility] HospitalComment on above:Performed By: #### ERTPF, CONNER, LIP, LIVP, TEGCR ####[facility] [address] [place] [address] Hemoglobin mass conc (Bld)8.8 g/dLLow 13.0-17.0[facility] HospitalComment on above:Performed By: #### ERTPF, CONNER, LIP, LIVP, TEGCR ####[address] [address] MCH Auto Entitic mass (RBC)30.1 coGvvtzr88.2-33.5[facility] HospitalComment on above:Performed By: #### ERTPF, CONNER, LIP, LIVP, TEGCR ####[place] [address] MCHC Auto mass conc (RBC)26.1 g/dLLow28.4-34.8[facility] HospitalComment on above:Performed By: #### ERTPF, CONNER, LIP, LIVP, TEGCR ####[facility] [address] [place] [address] MCV Auto Entitic volume (RBC)115.4 bKQeto73.6-102.9[facility] HospitalComment on above: Performed By: #### ERTPF, CONNER, LIP, LIVP, TEGCR ####[place] [address] NRBC Automated1.2 per 100 WBCHigh0.0[facility] HospitalComment on above:Performed By: #### ERTPF, CONNER, LIP, LIVP, TEGCR ####[place] [address] Platelet mean volume Auto Entitic volume (Bld)10.7 fLNormal8.1-13.5[facility] HospitalComment on above:Performed By: #### ERTPF, CONNER, LIP, LIVP, TEGCR ####[place] [address] Platelets Auto #/vol (Bld)775 10*3/cDEfqb649-331NgiwhBethesda North Hospital Comment on above:Performed By: #### ERTPF, CONNER, LIP, LIVP, TEGCR ####[place] [address] RBC Auto #/vol (Bld)2.92 10*6/uLLow4.21-5.77Bet[facility]da North HospitalComment on above:Performed By: #### ERTPF, CONNER, LIP, LIVP, TEGCR ####[address] [address] WBC Auto #/vol (Bld)23.7 10*3/uLHigh3.5-11.3 [facility] North HospitalComment on above:Performed By: #### ERTPF, CONNER, LIP, LIVP, TEGCR ####[facility] [address] [place] [address] Auto Diff PerformedNOT REPORTEDClermont County HospitalComment on above:Performed By: #### ERTPF, CONNER, LIP, LIVP, TEGCR ####[address] [address] Platelets Auto #/vol (Bld)NOT REPORTEDClermont County HospitalComment on above: Performed By: #### ERTPF, CONNER, LIP, LIVP, TEGCR ####[address] [address] RBC morphology finding Nom (Bld)NOT REPORTEDClermont County HospitalComment on above:Performed By: #### ERTPF, CONNER, LIP, LIVP, TEGCR ####[address] [address] WBC MorphologyNOT REPORTEDClermont County HospitalComment on above:Performed By: #### ERTPF, CONNER, LIP, LIVP, TEGCR ####[facility] [address] [place] [address] NA (Sodium)on 00-51-7117Mkvyif molar hzki087 mmol/VNrmv750-457QxhxjBethesda North Hospital Comment on above:Performed By: #### ERTPF, CONNER, LIP, LIVP, TEGCR ####[employer] [place] [address] OPERATIVE REPORTon [id number] REPORTKETTERING HEALTH [facility] [address] [place] [address] OPERATIVE REPORTPATIENT NAME: ALEJO FLOYD : 1960MED REC NO: [id number] ROOM: [address] [place] [address] NO: [id number] ADMITDATE: 01/19/2018PROVIDER: Ele MottDATE OF PROCEDURE: 02/01/2018SURGEON: [...] patient's sister, Alex Floyd, his power of nuclear operator. All risks, benefits and alternatives were discussed [...] this, cut in a single layer and evywfg-fd-hvlqp stitches frominferior to the proximal aspect of [...] of this case.ELE MOTTD: 02/01/2018 15:34:43 GEORGE/Toby_SSVIJ_IJob#: [id number] Doc#: [id number]: Albina Quinn MD Nallely [facility] HospitalXR CHEST PORTABLEon [id number] CHEST PORTABLE EXAMINATION:SINGLE XRAY VIEW OF THE CHEST02/01/2018 11:37 amCOMPARISON:Chest radiograph 01/30/2018, 01/29/2018HISTORY:ORDERING SYSTEM PROVIDED HISTORY: TachypneaTECHNOLOGIST PROVIDED HISTORY:TachypneaFINDINGS:Hypoexpanded lungs with bronchovascular crowding and fluctuating basilaratelectasis. No pneumothorax. Blunted left costophrenic sulcus isunchanged. Stable cardiomediastinal contours. Esophagogastric tubeterminates over the gastric bubble. Mild gaseous distention of the esophagus.IMPRESSION:Unchanged small left pleural effusion and basilar atelectasis. Borderlineinterstitial edema.Interpreted by:NADEGE Mendezigned by:Jeramy Solano MD18Final resultNormalBethesda North HospitalBasic Metabolic Profon 01-31-2018(cont.)NormalBethesda North HospitalComment on above:Result Comment: Average GFR for 50-59 years old: 93 mL/min/1.73sq mChronic Kidney Disease: <60 mL/min/1.73sq mKidney failure: <15 mL/min/1.73sq meGFR calculated using average adult body mass. Additional eGFR calculator available at:http://www.Hiddenbed.Medical Simulation/multiple_crcl_2012.htmPerformed By: #### ERTPF, CONNER, LIP, LIVP, TEGCR ####[employer] [address]tuqcwgcpxr[address] [place], [place] [phone] Anion gap 3 molar conc14 mmol/LNormal9-17[facility] HospitalComment on above:Performed By: #### ERTPF, CONNER, LIP, LIVP, TEGCR ####Sarithay [address] [place], [place] [id number] Calcium mass conc8.1 mg/dLLow8.6-10.4[facility] North HospitalComment on above:Performed By: #### ERTPF, CONNER, LIP, LIVP, TEGCR ####[facility] [address] [place] [address] Chloride molar hpjw990 mmol/NUdgv39-326 [facility] North HospitalComment on above:Performed By: #### ERTPF, CONNER, LIP, LIVP, TEGCR ####[place] [address] [place] [address] EH6 molar conc23 mmol/KIbyefe53-49CjpqdBethesda North Hospital Comment on above:Performed By: #### ERTPF, CONNER, LIP, LIVP, TEGCR ####[place] [place] [address] Creatinine mass conc1.31 mg/dLHigh0.70-1.20[facility] North HospitalComment on above:Performed By: #### ERTPF, CONNER, LIP, LIVP, TEGCR ####[address] [address] GFR, Amer>60Normal>60[facility] North HospitalComment on above:Performed By: #### ERTPF, CONNER, LIP, LIVP, TEGCR ####[place] [place] [address] GFR,non Amer56 mL/minLow>60[facility] North HospitalComment on above: Performed By: #### ERTPF, CONNER, LIP, LIVP, TEGCR ####[facility] [address] [place] [address] Glucose mass zohx785 mg/fIOmhj34-65PqgfaRiverside Community HospitalComment on above:Performed By: #### ERTPF, CONNER, LIP, LIVP, TEGCR ####[place] [place] [address] Potassium molar conc3.3 mmol/LLow3.7-5.3[facility] Community HospitalComment on above:Performed By: #### ERTPF, CONNER, LIP, LIVP, TEGCR ####Saritha [address]kg[address] [place] [address] Sodium molar rrxs754 mmol/REeqa243-978BqsuwBethesda North HospitalComment on above:Performed By: #### ERTPF, CONNER, LIP, LIVP, TEGCR ####[place] [address] Urea nitrogen mass conc20 mg/dLNormal6-20[facility] North HospitalComment on above:Performed By: #### ERTPF, CONNER, LIP, LIVP, TEGCR ####[place] [address] BUN/CRE Ratio NOT REPORTEDNormal9-20[facility] North HospitalComment on above:Performed By: #### ERTPF, CONNER, LIP, LIVP, TEGCR ####[place], [place] [phone]:NOT REPORTEDNormalBethesda North HospitalComment on above:Performed By: #### ERTPF, CONNER, LIP, LIVP, TEGCR ####[place], [place] [phone] with Diff on 50-96-1409Huu. Basophil0.00 k/uLNormal0.0-0.2MRiverside Community Hospital Comment on above:Performed By: #### ERTPF, CONNER, LIP, LIVP, TEGCR ####[place] [address] Abs.Imm.Granulocyte0.00 k/uLNormal0.00-0.30[facility] North HospitalComment on above:Performed By: #### ERTPF, CONNER, LIP, LIVP, TEGCR ####[address] [place] [address] Abs.Neutrophil (Seg)21.68 k/uLHigh1.8-7.7[facility] North HospitalComment on above:Performed By: #### ERTPF, CONNER, LIP, LIVP, TEGCR ####[address] [address] Basophils/100 WBC Auto (Bld)0 %Normal0-2MercSutter Roseville Medical CenterComment on above:Performed By: #### ERTPF, CONNER, LIP, LIVP, TEGCR ####[address] [address] Eosinophils Auto #/vol (Bld)0.25 10*3/uLNormal0.0-0.4[facility] HospitalComment on above: Performed By: #### ERTPF, CONNER, LIP, LIVP, TEGCR ####[address] [address] Eosinophils/100 WBC Auto (Bld)1 %Normal 1-4[facility] North HospitalComment on above:Performed By: #### ERTPF, CONNER, LIP, LIVP, TEGCR ####[address] [address] Immature granulocytes #/vol (Bld)0 %Nnnhiw2XgvojBethesda North HospitalComment on above:Performed By: #### ERTPF, CONNER, LIP, LIVP, TEGCR ####[address] [address] Lymphocytes Auto #/vol (Bld)2.77 10*3/uLNormal1.0-4.8[facility] North HospitalComment on above:Performed By: #### ERTPF, CONNER, LIP, LIVP, TEGCR ####[address] [address] Lymphocytes/100 WBC Auto (Bld)11 %Sto76-57SdnpcBethesda North HospitalComment on above:Performed By: #### ERTPF, CONNER, LIP, LIVP, TEGCR ####[address] [address] Monocytes Auto #/vol (Bld)0.50 10*3/uLNormal0.1-0.8[facility] HospitalComment on above:Performed By: #### ERTPF, CONNER, LIP, LIVP, TEGCR ####[address] [address] Monocytes/100 WBC Auto (Bld)2 %Normal1-7[facility] North HospitalComment on above:Performed By: #### ERTPF, CONNER, LIP, LIVP, TEGCR ####[address] [address] Morphology Interp Eduard (Bld)MACROCYTOSIS PRESENTNormalBethesda North HospitalComment on above: Result Comment: ANISOCYTOSIS PRESENTPerformed By: #### ERTPF, CONNER, LIP, LIVP, TEGCR ####[address] [address] Neutrophil (Seg)86 %Fjsl06-52WrfclBethesda North HospitalComment on above: Performed By: #### ERTPF, CONNER, LIP, LIVP, TEGCR ####[address] [address] Nucleated RBC/100 WBC Ratio (Bld)1 per 100 DAQAhvn6BetluBethesda North HospitalComment on above:Performed By: #### ERTPF, CONNER, LIP, LIVP, TEGCR ####[address] [address] Erythrocyte distribution width Auto Ratio (RBC)17.6 %High 11.8-14.4[facility] North HospitalComment on above:Performed By: #### ERTPF, CONNER, LIP, LIVP, TEGCR ####[facility] [address] [place] [address] Hematocrit Auto Volume Fraction (Bld)30.9 %Low40.7-50.3Mohiohealth [facility] methodist hospitaly [facility] Community HospitalComment on above:Performed By: #### ERTPF, CONNER, LIP, LIVP, TEGCR ####[facility] Robcvtdxtzjn[address] [place] [address] Hemoglobin mass conc (Bld)8.8 g/dLLow13.0-17.0[facility] Comment on above:Performed By: #### ERTPF, CONNER, LIP, LIVP, TEGCR ####[address] [address] MCH Auto Entitic mass (RBC)29.9 syGvvcdk93.2-33.5[facility] HospitalComment on above: Performed By: #### ERTPF, CONNER, LIP, LIVP, TEGCR ####[address] [address] MCHC Auto mass conc (RBC)28.5 g/dLNormal 28.4-34.8[facility] HospitalComment on above:Performed By: #### ERTPF, CONNER, LIP, LIVP, TEGCR ####[address] [address] MCV Auto Entitic volume (RBC)105.1 wBLpzs62.6-102.9[facility] HospitalComment on above:Performed By: #### ERTPF, CONNER, LIP, LIVP, TEGCR ####[address] [address] NRBC Automated0.5 per 100 WBCHigh0.0Bet[facility] North HospitalComment on above: Performed By: #### ERTPF, CONNER, LIP, LIVP, TEGCR ####[address] [address] Platelet mean volume Auto Entitic volume (Bld)10.6 fLNormal8.1-13.5[facility] HospitalComment on above: Performed By: #### ERTPF, CONNER, LIP, LIVP, TEGCR ####[address] [address] Platelets Auto #/vol (Bld)852 10*3/uLHigh 138-453Bet[facility] North HospitalComment on above:Performed By: #### ERTPF, CONNER, LIP, LIVP, TEGCR ####[address] [address] RBC Auto #/vol (Bld)2.94 10*6/uLLow4.21-5.77[facility] HospitalComment on above:Performed By: #### ERTPF, CONNER, LIP, LIVP, TEGCR ####[address] [address] WBC Auto #/vol (Bld)25.2 10*3/uLHigh3.5-11.3MRiverside Community HospitalComment on above: Performed By: #### ERTPF, CONNER, LIP, LIVP, TEGCR ####[address] [address] Auto Diff PerformedNOT REPORTEDNormal [facility] HospitalComment on above:Performed By: #### ERTPF, CONNER, LIP, LIVP, TEGCR ####[address] 43[address] Platelets Auto #/vol (Bld)NOT REPORTEDNormalBethesda North HospitalComment on above:Performed By: #### ERTPF, CONNER, LIP, LIVP, TEGCR ####[facility] [address]aspqmkqzxhi[address] [place] [address] RBC morphology finding Nom (Bld)NOT REPORTEDNormalBethesda North HospitalComment on above:Performed By: #### ERTPF, CONNER, LIP, LIVP, TEGCR ####Sarithay [address] [place] [address] [phone] MorphologyNOT REPORTEDNormalBethesda North HospitalComment on above:Performed By: #### ERTPF, CONNER, LIP, LIVP, TEGCR ####[address] [address] Magnesiumon 58-62-8832Hfxluyeea mass conc2.7 mg/dLHigh1.6-2.6[facility] Community HospitalComment on above:Performed By: #### ERTPF, CONNER, LIP, LIVP, TEGCR ####[facility] [address] [place] [address] [phone], Inorg.on 64-13-2807Xyovmaqrxl, Inorg.2.7 mg/dLNormal2.5-4.5[facility] HospitalComment on above:Performed By: #### ERTPF, CONNER, LIP, LIVP, TEGCR ####[facility] [address] [place] [address] [phone] w/ Microon 01-31-2018-----NormalMerKindred HospitalComment on above: Performed By: #### ERTPF, CONNER, LIP, LIVP, TEGCR ####[facility] [address]mnkfvkwcvzi[address] [place] [address] [phone] Acid,UrNegativeNormalNEGBethesda North HospitalComment on above:Performed By: #### ERTPF, CONNER, LIP, LIVP, TEGCR ####[facility] [address]lvwbwbwqgaj[address] [place] [address] Bilirubin, SemiQt,UrNegativeNormalNEGBethesda North HospitalComment on above:Performed By: #### ERTPF, CONNER, LIP, LIVP, TEGCR ####[address] [address] ColorYELLOWNormalYELMerKindred HospitalComment on above:Performed By: #### ERTPF, CONNER, LIP, LIVP, TEGCR ####[address] [address] Epithelial cells0 TO 4Zvqrjq6-2FvgekBethesda North HospitalComment on above:Performed By: #### ERTPF, CONNER, LIP, LIVP, TEGCR ####[address] [address] Glucose,Semi-qnt,UrNegativeNormalNEGBethesda North HospitalComment on above:Performed By: #### ERTPF, CONNER, LIP, LIVP, TEGCR ####[address] [address] Hemoglobin, UrMODERATEAbnormalNEGBethesda North HospitalComment on above:Performed By: #### ERTPF, CONNER, LIP, LIVP, TEGCR ####[address] [address] Leuckocyte EsteraseNegativeNormalNEG [facility] HospitalComment on above:Performed By: #### ERTPF, CONNER, LIP, LIVP, TEGCR ####[address] [address] Nitrite,UrNegativeNormalNEGBethesda North HospitalComment on above:Performed By: #### ERTPF, CONNER, LIP, LIVP, TEGCR ####[address] [phone],Ur6.7Jftnie2.0-8.0 [facility] HospitalComment on above:Performed By: #### ERTPF, CONNER, LIP, LIVP, TEGCR ####[place] [address] Protein mass conc1+AbnormalNEGBethesda North Hospital Comment on above:Performed By: #### ERTPF, CONNER, LIP, LIVP, TEGCR ####[place] [address] RBC Test strip #/vol (U) 5 TO 03Eqenio7-8KxlvyBethesda North HospitalComment on above:Result Comment: Reference range defined for non-centrifuged specimen.Performed By: #### ERTPF, CONNER, LIP, LIVP, TEGCR ####[place] [address] Spec. [place],Ur1.349Rfhzqm9.005-1.030Bet[facility] North HospitalComment on above:Performed By: #### ERTPF, CONNER, LIP, LIVP, TEGCR ####[place] [address] TurbidityCLEARNormal CLEARBethesda North HospitalComment on above:Performed By: #### ERTPF, CONNER, LIP, LIVP, TEGCR ####[place] [address] Urine WBC's0 TO 6Uyrixu2-5JrsdhBethesda North HospitalComment on above:Performed By: #### ERTPF, CONNER, LIP, LIVP, TEGCR ####[place] [address] Urobilinogen,UrNormal NormalNORMBethesda North HospitalComment on above:Performed By: #### ERTPF, CONNER, LIP, LIVP, TEGCR ####[address] [place] [address] Amorphous SedimentNOT REPORTEDNormalNONEMeBarton Memorial HospitalComment on above:Performed By: #### ERTPF, CONNER, LIP, LIVP, TEGCR ####[facility] [address]whcenyajcoq[address] [place] [phone] REPORTEDNormalNONEMeBarton Memorial HospitalComment on above:Performed By: #### ERTPF, CONNER, LIP, LIVP, TEGCR ####[facility] [address] [place] [address] CastsNOT REPORTEDNormal0-8[facility] Comment on above:Performed By: #### ERTPF, CONNER, LIP, LIVP, TEGCR ####[address] [address] CrystalsNOT REPORTED NormalNONEMeBarton Memorial HospitalComment on above:Performed By: #### ERTPF, CONNER, LIP, LIVP, TEGCR ####[facility] [address]imf[address] [place] [address] Epithelial, RenalNOT XUFSASBSYlanzv6JhmiiBethesda North HospitalComment on above:Performed By: #### ERTPF, CONNER, LIP, LIVP, TEGCR ####[facility] [address]srhlj[address] [place] [address] Mucus StrandsNOT REPORTEDNormalNONEMeBarton Memorial HospitalComment on above:Performed By: #### ERTPF, CONNER, LIP, LIVP, TEGCR ####[facility] [address]zyusivh[address] [place] [address] Other ObservationsNOT REPORTEDNormalNREQBethesda North HospitalComment on above:Performed By: #### ERTPF, CONNER, LIP, LIVP, TEGCR ####[facility] [address]fw[address] [place] [phone] REPORTEDNormalNONKeenan Private HospitalComment on above:Performed By: #### ERTPF, CONNER, LIP, LIVP, TEGCR ####[place] [address] YeastNOT REPORTEDNormMercy Health Defiance HospitalComment on above:Performed By: #### ERTPF, CONNER, LIP, LIVP, TEGCR ####[place] [address] CBC with Diff on 59-55-5636Duh. Basophil0.00 k/uLNormal0.0-0.2MRiverside Community Hospital Comment on above:Performed By: #### ERTPF, CONNER, LIP, LIVP, TEGCR ####[place] [address] Abs.Imm.Granulocyte0.22 k/uLNormal0.00-0.30MerKindred HospitalComment on above:Performed By: #### ERTPF, CONNER, LIP, LIVP, TEGCR ####[place] [address] Abs.Neutrophil (Seg)17.57 k/uLHigh1.8-7.7[facility] HospitalComment on above:Performed By: #### ERTPF, CONNER, LIP, LIVP, TEGCR ####[place] [address] Basophils/100 WBC Auto (Bld)0 %Normal0-2MRiverside Community HospitalComment on above:Performed By: #### ERTPF, CONNER, LIP, LIVP, TEGCR ####[place] [address] Eosinophils Auto #/vol (Bld)0.22 10*3/uLNormal0.0-0.4[facility] HospitalComment on above: Performed By: #### ERTPF, CONNER, LIP, LIVP, TEGCR ####[facility] [address]ieghkrpr[address] [place] [address] Eosinophils/100 WBC Auto (Bld)1 %Normal 1-4[facility] HospitalComment on above:Performed By: #### ERTPF, CONNER, LIP, LIVP, TEGCR ####[address] [address] Immature granulocytes #/vol (Bld)1 %Ofuc7SlotgBethesda North HospitalComment on above:Performed By: #### ERTPF, CONNER, LIP, LIVP, TEGCR ####[address] [address] Lymphocytes Auto #/vol (Bld)2.17 10*3/uLNormal1.0-4.8[facility] HospitalComment on above:Performed By: #### ERTPF, CONNER, LIP, LIVP, TEGCR ####[address] [address] Lymphocytes/100 WBC Auto (Bld)10 %Yjd89-36MrxacBethesda North HospitalComment on above:Performed By: #### ERTPF, CONNER, LIP, LIVP, TEGCR ####[address] [address] Monocytes Auto #/vol (Bld)1.52 10*3/uLHigh0.1-0.8[facility] HospitalComment on above:Performed By: #### ERTPF, CONNER, LIP, LIVP, TEGCR ####[address] [address] Monocytes/100 WBC Auto (Bld)7 %Normal1-7[facility] North HospitalComment on above:Performed By: #### ERTPF, CONNER, LIP, LIVP, TEGCR ####Filomena [address] [place] [address] Morphology Interp Eduard (Bld)ANISOCYTOSIS PRESENTNormalBethesda North HospitalComment on above: Result Comment: INCREASED BANDS PRESENTPerformed By: #### ERTPF, CONNER, LIP, LIVP, TEGCR ####Sarithaernei [address] [address] Neutrophil (Seg)81 %Swxw87-44SvzqxBethesda North HospitalComment on above: Performed By: #### ERTPF, CONNER, LIP, LIVP, TEGCR ####Filomena [address] [address] Erythrocyte distribution width Auto Ratio (RBC)17.1 %High11.8-14.4[facility] North HospitalComment on above: Performed By: #### ERTPF, CONNER, LIP, LIVP, TEGCR ####[address] [address] Hematocrit Auto Volume Fraction (Bld)29.8 %Low40.7-50.3MRiverside Community HospitalComment on above:Performed By: #### ERTPF, CONNER, LIP, LIVP, TEGCR ####[address] [address] Hemoglobin mass conc (Bld)8.9 g/dLLow13.0-17.0[facility] HospitalComment on above:Performed By: #### ERTPF, CONNER, LIP, LIVP, TEGCR ####[address] [address] MCH Auto Entitic mass (RBC)29.9 zbCmeuej06.2-33.5[facility] Comment on above:Performed By: #### ERTPF, CONNER, LIP, LIVP, TEGCR ####[facility] [address] [place] [address] [phone] Auto mass conc (RBC)29.9 g/iCNvdmmm55.4-34.8[facility] HospitalComment on above: Performed By: #### ERTPF, CONNER, LIP, LIVP, TEGCR ####[address] [address] MCV Auto Entitic volume (RBC)100.0 fL Jmtrgk89.6-102.9[facility] North HospitalComment on above:Performed By: #### ERTPF, CONNER, LIP, LIVP, TEGCR ####[place] [address] NRBC Automated0.1 per 100 WBCHigh0.0Bet[facility] North HospitalComment on above:Performed By: #### ERTPF, CONNER, LIP, LIVP, TEGCR ####[place], [place] [phone] mean volume Auto Entitic volume (Bld)10.5 fLNormal8.1-13.5[facility] North HospitalComment on above:Performed By: #### ERTPF, CONNER, LIP, LIVP, TEGCR ####[place], [place] [phone] Auto #/vol (Bld)850 10*3/bZFcjt982-743KvhzbBethesda North HospitalComment on above: Performed By: #### ERTPF, CONENR, LIP, LIVP, TEGCR ####[place] [address] RBC Auto #/vol (Bld)2.98 10*6/uLLow 4.21-5.77[facility] HospitalComment on above:Performed By: #### ERTPF, CONNER, LIP, LIVP, TEGCR ####[address] [place] [address] WBC Auto #/vol (Bld)21.7 10*3/uLHigh3.5-11.3[facility] HospitalComment on above:Performed By: #### ERTPF, CONNER, LIP, LIVP, TEGCR ####Sarithay [address] [place] [address] Auto Diff PerformedNOT REPORTEDNormalBethesda North HospitalComment on above: Performed By: #### ERTPF, CONNER, LIP, LIVP, TEGCR ####[address] [address] Platelets Auto #/vol (Bld)NOT REPORTED NormalBethesda North HospitalComment on above:Performed By: #### ERTPF, CONNER, LIP, LIVP, TEGCR ####Filomena [address]mb[address]of[address] [place] [address] RBC morphology finding Nom (Bld)NOT REPORTEDNormalBethesda North HospitalComment on above:Performed By: #### ERTPF, CONNER, LIP, LIVP, TEGCR ####Sarithay [address] [place] [address] WBC MorphologyNOT REPORTEDClermont County HospitalComment on above: Performed By: #### ERTPF, CONNER, LIP, LIVP, TEGCR ####[facility] [address]oxhpbkzwbg[address] [place] [address] Comp Metabolic Profon 01-30-2018(cont.) NormalBethesda North HospitalComment on above:Result Comment: Average GFR for 50-59 years old: 93 mL/min/1.73sq mChronic Kidney Disease: <60 mL /min/1.73sq mKidney failure: <15 mL/min/1.73sq meGFR calculated using average adult body mass. Additional eGFR calculator available at:http://www.Hiddenbed.com/multiple_crcl_2012.htmPerformed By: #### ERTPF, CONNER, LIP, LIVP, TEGCR ####[place] [address] [place], [place] [address] Albumin mass conc2.6 g/dLLow3.5-5.2MRiverside Community HospitalComment on above:Performed By: #### ERTPF, CONNER, LIP, LIVP, TEGCR ####[address] [address] Albumin/Globulin mass ratio0.6 {ratio}Low1.0-2.5Bet[facility] North HospitalComment on above: Performed By: #### ERTPF, CONNER, LIP, LIVP, TEGCR ####[address] [address] Alkaline Phos76 U/OYtcipi62-855ZfsqfBethesda North HospitalComment on above:Performed By: #### ERTPF, CONNER, LIP, LIVP, TEGCR ####[address] [address] ALT enzyme act/vol21 U/LNormal5-41Bet[facility] North HospitalComment on above: Performed By: #### ERTPF, CONNER, LIP, LIVP, TEGCR ####[address] [address] Anion gap 3 molar conc10 mmol/LNormal9-17 [facility] HospitalComment on above:Performed By: #### ERTPF, CONNER, LIP, LIVP, TEGCR ####[place] [address] [place] [address] AST enzyme act/vol51 U/LHigh<40[facility] Comment on above:Performed By: #### ERTPF, CONNER, LIP, LIVP, TEGCR ####[address] [address] Bilirubin Ql (U)0.98 mg/dLNormal0.3-1.2Mohiohealth [facility] hospitaly [facility] HospitalComment on above:Performed By: #### ERTPF, CONNER, LIP, LIVP, TEGCR ####[facility] [address] [place] [address] Calcium mass conc8.1 mg/dLLow8.6-10.4[facility] HospitalComment on above:Performed By: #### ERTPF, CONNER, LIP, LIVP, TEGCR ####[facility] [address] [place] [address] Chloride molar rfff079 mmol/QSjbw54-241PnlizBethesda North HospitalComment on above: Performed By: #### ERTPF, CONNER, LIP, LIVP, TEGCR ####[address] [address] FO6 molar conc27 mmol/IGdjfzd89-88WknukBethesda North HospitalComment on above:Performed By: #### ERTPF, CONNER, LIP, LIVP, TEGCR ####[facility] [address] [place] [address] Creatinine mass conc1.47 mg/dLHigh0.70-1.20[facility] Comment on above:Performed By: #### ERTPF, CONNER, LIP, LIVP, TEGCR ####[facility] [address] [place] [address] GFR, Amer60 mL/minLow>60MerKindred HospitalComment on above:Performed By: #### ERTPF, CONNER, LIP, LIVP, TEGCR ####[facility] [address] [place] [address] GFR,non Amer49 mL/minLow>60[facility] HospitalComment on above:Performed By: #### ERTPF, CONNER, LIP, LIVP, TEGCR ####[facility] [address] [place] [address] Glucose mass axqe161 mg/vCEzfo60-33HfounRiverside Community HospitalComment on above:Performed By: #### ERTPF, CONNER, LIP, LIVP, TEGCR ####[address] [address] Potassium molar conc3.2 mmol/LLow3.7-5.3MRiverside Community HospitalComment on above:Performed By: #### ERTPF, CONNER, LIP, LIVP, TEGCR ####[address] [address] Protein mass conc6.7 g/dLNormal6.4-8.3MRiverside Community HospitalComment on above: Performed By: #### ERTPF, CONNER, LIP, LIVP, TEGCR ####[address] [address] Sodium molar sydf759 mmol/RRfbm596-211 [facility] HospitalComment on above:Performed By: #### ERTPF, CONNER, LIP, LIVP, TEGCR ####[address] [address] Urea nitrogen mass conc23 mg/dLHigh6-20[facility] North HospitalComment on above:Performed By: #### ERTPF, CONNER, LIP, LIVP, TEGCR ####[address] [address] BUN/CRE RatioNOT REPORTEDNormal9-20[facility] HospitalComment on above:Performed By: #### ERTPF, CONNER, LIP, LIVP, TEGCR ####[address] [address] Staging:NOT REPORTEDNormalBethesda North Hospital Comment on above:Performed By: #### ERTPF, CONNER, LIP, LIVP, TEGCR ####[facility] [address] [place] [address] Magnesiumon 01-30-2018 Magnesium mass conc3.0 mg/dLHigh1.6-2.6[facility] HospitalComment on above:Performed By: #### ERTPF, CONNER, LIP, LIVP, TEGCR ####[facility] [address]usi[address] [place] [address] Phosphorus, Inorg.on 85-70-1554Gxjqsvuipd, Inorg.1.9 mg/dLLow2.5-4.5[facility] Comment on above:Performed By: #### ERTPF, CONNER, LIP, LIVP, TEGCR ####Sarithay [address] [place], [place] [id number] XR CHEST PORTABLEon [id number] CHEST PORTABLEEXAMINATION:SINGLE XRAY VIEW OF THE CHEST01/30/2018 8:26 amCOMPARISON:01/29/2018HISTORY:ORDERING SYSTEM PROVIDED HISTORY: tachypneaTECHNOLOGIST PROVIDED HISTORY:tachypneaFINDINGS:The heart and mediasti nal structures are stable. NG tube and right upperextremity PICC line are in place. Bibasilar atelectasis is present withsmall pleural effusions.IMPRESSION: Small pleural effusions with bibasilar atelectasisInterpreted by:NADEGE Rosalesigned by:Lauro Hood MD01/30/18Final resultNormalMerKindred HospitalAmmoniaon [id number] mass conc (P)33 umol/AFxgfql04-60XmyswBethesda North HospitalComment on above:Performed By: #### ERTPF, CONNER, LIP, LIVP, TEGCR ####[facility] [address] [place], [place] [id number] Basic Metabolic Profon 01-29-2018(cont.)NormalBethesda North Hospital Comment on above:Result Comment: Average GFR for 50-59 years old: 93 mL/min/1.73sq mChronic Kidney Disease: <60 mL/min/1.73sq mKidney failure: <15 mL/min/1.73sq meGFR calculated using average adult body mass. Additional eGFR calculator available at:http://www.[facility]/multiple_crcl_2012.htmPerformed By: #### ERTPF, CONNER, LIP, LIVP, TEGCR ####[facility] [address] [place] [address] Anion gap 3 molar conc13 mmol/LNormal9-17[facility] HospitalComment on above:Performed By: #### ERTPF, CONNER, LIP, LIVP, TEGCR ####[facility] [address]ych[address] [place] [address] Calcium mass conc7.6 mg/dLLow8.6-10.4[facility] HospitalComment on above:Performed By: #### ERTPF, CONNER, LIP, LIVP, TEGCR ####[address] [place] [address] Chloride molar hnzn957 mmol/LClbv73-746 [facility] HospitalComment on above:Performed By: #### ERTPF, CONNER, LIP, LIVP, TEGCR ####[address] [place] [address] KO9 molar conc28 mmol/OOfoqvp74-46WraryBethesda North Hospital Comment on above:Performed By: #### ERTPF, CONNER, LIP, LIVP, TEGCR ####[address] [place] [address] Creatinine mass conc1.42 mg/dLHigh0.70-1.20[facility] HospitalComment on above:Performed By: #### ERTPF, CONNER, LIP, LIVP, TEGCR ####[address] [place] [address] GFR, Amer>60Normal>60[facility] HospitalComment on above:Performed By: #### ERTPF, CONNER, LIP, LIVP, TEGCR ####[facility] [address] [place] [address] GFR,non Amer51 mL/minLow>60[facility] HospitalComment on above: Performed By: #### ERTPF, CONNER, LIP, LIVP, TEGCR ####[facility] [address] [place] [address] Glucose mass voxy516 mg/fZLblj59-42FrjviRiverside Community HospitalComment on above:Performed By: #### ERTPF, CONNER, LIP, LIVP, TEGCR ####[address] [address] Potassium molar conc3.9 mmol/LNormal3.7-5.3MRiverside Community Hospital Comment on above:Result Comment: SPECIMEN SLIGHTLY HEMOLYZED, RESULTS MAY BE ADVERSELY AFFECTED.Performed By: #### ERTPF, CONNER, LIP, LIVP, TEGCR ####[facility] [address] [place] [address] Sodium molar jstq734 mmol/JIofn153-838EcktdBethesda North HospitalComment on above:Performed By: #### ERTPF, CONNER, LIP, LIVP, TEGCR ####[facility] [address] [place] [address] Urea nitrogen mass conc32 mg/dLHigh6-20[facility] HospitalComment on above:Performed By: #### ERTPF, CONNER, LIP, LIVP, TEGCR ####[facility] [address] [place] [address] BUN/CRE Ratio NOT REPORTEDNormal9-20[facility] HospitalComment on above:Performed By: #### ERTPF, CONNER, LIP, LIVP, TEGCR ####Filomena [address] [place] [address] Staging:NOT REPORTEDNormalMerKindred HospitalComment on above:Performed By: #### ERTPF, CONNER, LIP, LIVP, TEGCR ####[address]ith[address] [address] Brain Natri. Peptideon 78-21-3978Kconbxopdra peptide B mass conc (Bld)NormalBethesda North HospitalComment on above:Result Comment: Pro-BNP Reference Range:Rule Out: <300Grey Zone: Age <50 300-450 Age 50-75 300-900 Age >75 300-1800Usually represents mild to moderate HF but other cardiopulmonary causes cannot be ruled out.Rule In: Age <50 >450 Age 50-75 >900 Age >75 >1800Performed By: #### ERTPF, CONNER, LIP, LIVP, TEGCR ####[address] [address] Natriuretic peptide B mass conc (Bld)1400 pg/mLHigh<300Bet[facility] North HospitalComment on above:Result Comment: Pro-BNP results cannot be compared to BNP results.Performed By: #### ERTPF, CONNER, LIP, LIVP, TEGCR ####Sarithaernie [address] [phone] with Diff on [id number]. Basophil0.00 k/uLNormal0.0-0.2MRiverside Community Hospital Comment on above:Performed By: #### ERTPF, CONNER, LIP, LIVP, TEGCR ####Saritha [address] [place] [address] [phone].Imm.Granulocyte0.00 k/uLNormal0.00-0.30[facility] HospitalComment on above:Performed By: #### ERTPF, CONNER, LIP, LIVP, TEGCR ####[address] [address] Abs.Neutrophil (Seg)20.91 k/uLHigh1.8-7.7[facility] HospitalComment on above:Performed By: #### ERTPF, CONNER, LIP, LIVP, TEGCR ####[address] [address] Basophils/100 WBC Auto (Bld)0 %Normal0-2MercSutter Roseville Medical CenterComment on above:Performed By: #### ERTPF, CONNER, LIP, LIVP, TEGCR ####[address] [address] Eosinophils Auto #/vol (Bld)0.25 10*3/uLNormal0.0-0.4[facility] HospitalComment on above: Performed By: #### ERTPF, CONNER, LIP, LIVP, TEGCR ####[address] [address] Eosinophils/100 WBC Auto (Bld)1 %Normal 1-4[facility] HospitalComment on above:Performed By: #### ERTPF, CONNER, LIP, LIVP, TEGCR ####[address] [address] Immature granulocytes #/vol (Bld)0 %Zdqufp3LqbbxKindred HospitalComment on above:Performed By: #### ERTPF, CONNER, LIP, LIVP, TEGCR ####[address] [address] Lymphocytes Auto #/vol (Bld)2.21 10*3/uLNormal1.0-4.8[facility] HospitalComment on above:Performed By: #### ERTPF, CONNER, LIP, LIVP, TEGCR ####[address] [address] Lymphocytes/100 WBC Auto (Bld)9 %Xll78-77LchlgBethesda North HospitalComment on above:Performed By: #### ERTPF, CONNER, LIP, LIVP, TEGCR ####[address] [address] Monocytes Auto #/vol (Bld)1.23 10*3/uLHigh0.1-0.8[facility] HospitalComment on above:Performed By: #### ERTPF, CONNER, LIP, LIVP, TEGCR ####[address] [address] Monocytes/100 WBC Auto (Bld)5 %Normal1-7[facility] HospitalComment on above:Performed By: #### ERTPF, CONNER, LIP, LIVP, TEGCR ####[address] [address] Morphology Interp Eduard (Bld)ANISOCYTOSIS PRESENTNormalBethesda North HospitalComment on above: Result Comment: TOXIC GRANULATION PRESENTPerformed By: #### ERTPF, CONNER, LIP, LIVP, TEGCR ####[address] [address] Neutrophil (Seg)85 %Onbd89-40UtgzyBethesda North HospitalComment on above: Performed By: #### ERTPF, CONNER, LIP, LIVP, TEGCR ####[address] [address] Nucleated RBC/100 WBC Ratio (Bld)1 per 100 ARQRtdv9MyepgBethesda North HospitalComment on above:Performed By: #### ERTPF, CONNER, LIP, LIVP, TEGCR ####[address] [address] Erythrocyte distribution width Auto Ratio (RBC)17.1 %High 11.8-14.4[facility] HospitalComment on above:Performed By: #### ERTPF, CONNER, LIP, LIVP, TEGCR ####[address] [address] Hematocrit Auto Volume Fraction (Bld)27.6 %Low40.7-50.3MercSutter Roseville Medical CenterComment on above:Performed By: #### ERTPF, CONNER, LIP, LIVP, TEGCR ####[address] [address] Hemoglobin mass conc (Bld)8.4 g/dLLow13.0-17.0[facility] Comment on above:Performed By: #### ERTPF, CONNER, LIP, LIVP, TEGCR ####[address] [address] MCH Auto Entitic mass (RBC)30.3 tiXqvqnb69.2-33.5[facility] HospitalComment on above: Performed By: #### ERTPF, CONNER, LIP, LIVP, TEGCR ####[address] [address] MCHC Auto mass conc (RBC)30.4 g/dLNormal 28.4-34.8[facility] HospitalComment on above:Performed By: #### ERTPF, CONNER, LIP, LIVP, TEGCR ####[address] [address] MCV Auto Entitic volume (RBC)99.6 eMTfzbdp30.6-102.9[facility] HospitalComment on above:Performed By: #### ERTPF, CONNER, LIP, LIVP, TEGCR ####[address] [phone] Automated0.0 per 100 WBCNormal0.0[facility] HospitalComment on above:Performed By: #### ERTPF, CONNER, LIP, LIVP, TEGCR ####[address] [address] Platelet mean volume Auto Entitic volume (Bld)10.9 fLNormal8.1-13.5[facility] HospitalComment on above: Performed By: #### ERTPF, CONNER, LIP, LIVP, TEGCR ####[address] [address] Platelets Auto #/vol (Bld)738 10*3/uLHigh 138-453[facility] North HospitalComment on above:Performed By: #### ERTPF, CONNER, LIP, LIVP, TEGCR ####[address] [address] RBC Auto #/vol (Bld)2.77 10*6/uLLow4.21-5.77[facility] HospitalComment on above:Performed By: #### ERTPF, CONNER, LIP, LIVP, TEGCR ####[address] [address] WBC Auto #/vol (Bld)24.6 10*3/uLHigh3.5-11.3MRiverside Community HospitalComment on above: Performed By: #### ERTPF, CONNER, LIP, LIVP, TEGCR ####[address] [address] Auto Diff PerformedNOT REPORTEDNoal [facility] HospitalComment on above:Performed By: #### ERTPF, CONNER, LIP, LIVP, TEGCR ####[address] [address] Platelets Auto #/vol (Bld)NOT REPORTEDNormalBethesda North HospitalComment on above:Performed By: #### ERTPF, CONNER, LIP, LIVP, TEGCR ####[facility] [address]ppcfvhv[address] [place] [address] RBC morphology finding Nom (Bld)NOT REPORTEDNoMercy Health Fairfield HospitalComment on above:Performed By: #### ERTPF, CONNER, LIP, LIVP, TEGCR ####[facility] [address]ql[address] [place] [address] WBC MorphologyNOT REPORTEDNoMercy Health Fairfield HospitalComment on above:Performed By: #### ERTPF, CONNER, LIP, LIVP, TEGCR ####[facility] [address]imnmzzmr[address] [place] [address] CT ABDOMEN PELVIS W IV CONTRASTon [id number] ABDOMEN PELVIS W IV CONTRAST EXAMINATION:CT OF [...] indicates reflux.Interpreted by:NADEGE Escalanteigned by:Cassie Torres MD01/29/18inal resultNormalMercy Surprise Valley Community HospitalTriglycerideson 78-18-2609Twulgfxtmvew mass ebwo118 mg/dLNormal<150Mer[facility] HospitalComment on above:Result Comment: Triglyceride Guidelines: <150 Desirable 150-199 Borderline 200-499 High >499 Very high Based on AHA Guidelines for fasting triglyceride, February 2012.Performed By: #### ERTPF, CONNER, LIP, LIVP, TEGCR ####[facility] [address] [place] [address] [phone] Triglyceride mass bfjv655 mg/dLNormal<150Mercy [facility] Community HospitalComment on above:Result Comment: Triglyceride Guidelines: <150 Desirable 150-199 Borderline 200-499 High >499 Very high Based on AHA Guidelines for fasting triglyceride, February 2012.Performed By: #### ERTPF, CONNER, LIP, LIVP, TEGCR ####[facility] [address] [place] [address] [phone] XR CHEST PORTABLEon [id number] CHEST PORTABLEEXAMINATION:SINGLE XRAY VIEW OF THE CHEST01/29/2018 [...] atelectasis.2. Emphysema.Interpreted by:NADEGE Braunigned by:Cassie Albarado MD01/29/18Final resultNormalMerKindred HospitalBasic Metabolic Profon 01-28-2018(cont.)NormalBethesda North HospitalComment on above:Result Comment: Average GFR for 50-59 years old: 93 mL/min/1.73sq mChronic Kidney Disease: <60 mL/min/1.73sq mKidney failure: <15 mL/min/1.73sq meGFR calculated using average adult body mass. Additional eGFR calculator available at:http://www.[facility] [place] [facility]/multiple_crcl_2011.htmPerformed By: #### ERTPF, CONNER, LIP, LIVP, TEGCR ####[address] [address] Anion gap 3 molar conc12 mmol/LNormal9-17[facility] HospitalComment on above:Performed By: #### ERTPF, CONNER, LIP, LIVP, TEGCR ####[address] [place] [address] Calcium mass conc7.7 mg/dLLow8.6-10.4[facility] HospitalComment on above: Performed By: #### ERTPF, CONNER, LIP, LIVP, TEGCR ####[facility] [address] [place] [address] Chloride molar uwyz602 mmol/TOondik28-268 [facility] HospitalComment on above:Performed By: #### ERTPF, CONNER, LIP, LIVP, TEGCR ####[facility] [address] [place] [address] JW1 molar conc29 mmol/SGlzgnp25-87RobptBethesda North Hospital Comment on above:Performed By: #### ERTPF, CONNER, LIP, LIVP, TEGCR ####[facility] [address]ubreuy[address] [place] [address] Creatinine mass conc1.67 mg/dLHigh0.70-1.20[facility] HospitalComment on above:Performed By: #### ERTPF, CONNER, LIP, LIVP, TEGCR ####[facility] [address] [place] [address] GFR, Amer52 mL/minLow>60MerKindred HospitalComment on above:Performed By: #### ERTPF, CONNER, LIP, LIVP, TEGCR ####[facility] [address] [place] [address] GFR,non Amer43 mL/minLow>60[facility] HospitalComment on above: Performed By: #### ERTPF, CONNER, LIP, LIVP, TEGCR ####[facility] [address] [place] [address] Glucose mass tqir123 mg/jRUbwr17-80DgjpnRiverside Community HospitalComment on above:Performed By: #### ERTPF, CONNER, LIP, LIVP, TEGCR ####[address] [address] Potassium molar conc3.4 mmol/LLow3.7-5.3Mohiohealth grove city methodist hospitaly [facility] Community HospitalComment on above:Performed By: #### ERTPF, CONNER, LIP, LIVP, TEGCR ####[facility] [address] [place] [address] Sodium molar ozuj617 mmol/VOjfh772-824KlvfhBethesda North HospitalComment on above:Performed By: #### ERTPF, CONNER, LIP, LIVP, TEGCR ####[facility] [address] [place] [address] Urea nitrogen mass conc35 mg/dLHigh6-20[facility] HospitalComment on above:Performed By: #### ERTPF, CONNER, LIP, LIVP, TEGCR ####[address] [place] [address] BUN/CRE Ratio NOT REPORTEDNormal9-20[facility] HospitalComment on above:Performed By: #### ERTPF, CONNER, LIP, LIVP, TEGCR ####[address] [address] Staging:NOT REPORTEDNormalBethesda North HospitalComment on above:Performed By: #### ERTPF, CONNER, LIP, LIVP, TEGCR ####[address] [address] (cont.)Normal [facility] HospitalComment on above:Result Comment: Average GFR for 50-59 years old: 93 mL/min/1.73sq mChronic Kidney Disease: <60 mL/min/1.73sq mKidney failure: <15 mL/min/1.73sq meGFR calculated using average adult body mass. Additional eGFR calculator available at:http://www.[facility] [place] [facility]/multiple_crcl_2012.htmPerformed By: #### ERTPF, CONNER, LIP, LIVP, TEGCR ####[address] [address] Anion gap 3 molar conc11 mmol/LNormal9-17[facility] HospitalComment on above:Performed By: #### ERTPF, CONNER, LIP, LIVP, TEGCR ####[address] [place] [address] Calcium mass conc8.2 mg/dLLow8.6-10.4[facility] HospitalComment on above: Performed By: #### ERTPF, CONNER, LIP, LIVP, TEGCR ####[address] [place] [address] Chloride molar conc99 mmol/HLvprfk31-426 [facility] HospitalComment on above:Performed By: #### ERTPF, CONNER, LIP, LIVP, TEGCR ####[address] [address] JK1 molar conc32 mmol/GPeex51-66CbnctBethesda North Hospital Comment on above:Performed By: #### ERTPF, CONNER, LIP, LIVP, TEGCR ####[facility] [address] [place] [address] Creatinine mass conc1.81 mg/dLHigh0.70-1.20[facility] HospitalComment on above:Performed By: #### ERTPF, CONNER, LIP, LIVP, TEGCR ####[address] [address] GFR, Amer47 mL/minLow>60[facility] HospitalComment on above:Performed By: #### ERTPF, CONNER, LIP, LIVP, TEGCR ####[address] [address] GFR,non Amer39 mL/minLow>60[facility] HospitalComment on above: Performed By: #### ERTPF, CONNER, LIP, LIVP, TEGCR ####[address] [address] Glucose mass zxzx730 mg/pXGwbh53-77CakteRiverside Community HospitalComment on above:Performed By: #### ERTPF, CONNER, LIP, LIVP, TEGCR ####[address] [address] Potassium molar conc4.7 mmol/LNormal3.7-5.3MRiverside Community Hospital Comment on above:Performed By: #### ERTPF, CONNER, LIP, LIVP, TEGCR ####[facility] [address] [place] [address] Sodium molar wwox824 mmol/HFnlnzj392-813BjobwBethesda North HospitalComment on above:Performed By: #### ERTPF, CONNER, LIP, LIVP, TEGCR ####[address] [phone] nitrogen mass conc39 mg/dLHigh6-20[facility] HospitalComment on above:Performed By: #### ERTPF, CONNER, LIP, LIVP, TEGCR ####[address] [address] BUN/CRE RatioNOT REPORTEDNoal9-20[facility] HospitalComment on above:Performed By: #### ERTPF, CONNER, LIP, LIVP, TEGCR ####[address] [address] Staging:NOT REPORTEDNormalBethesda North HospitalComment on above:Performed By: #### ERTPF, CONNER, LIP, LIVP, TEGCR ####[address] [address] C- Reactive Proteinon [id number] mass ppmh459.1 mg/LHigh0.0-5.0[facility] HospitalComment on above:Result Comment: ADDED ONPerformed By: #### ERTPF, CONNER, LIP, LIVP, TEGCR ####[address] [address] CBC with Diffon [id number]. Basophil0.00 k/uLNormal0.0-0.2 [facility] HospitalComment on above:Performed By: #### ERTPF, CONNER, LIP, LIVP, TEGCR ####[address] [address] Abs.Imm.Granulocyte0.00 k/uLNormal0.00-0.30[facility] HospitalComment on above:Performed By: #### ERTPF, CONNER, LIP, LIVP, TEGCR ####[address] [address] Abs.Neutrophil (Seg)29.16 k/uLHigh1.8-7.7[facility] HospitalComment on above: Performed By: #### ERTPF, CONNER, LIP, LIVP, TEGCR ####[address] [address] Basophils/100 WBC Auto (Bld)0 %Normal0-2 [facility] HospitalComment on above:Performed By: #### ERTPF, CONNER, LIP, LIVP, TEGCR ####[address] [address] Eosinophils Auto #/vol (Bld)0.00 10*3/uLNormal0.0-0.4[facility] HospitalComment on above:Performed By: #### ERTPF, CONNER, LIP, LIVP, TEGCR ####[place] [address] Eosinophils/100 WBC Auto (Bld)0 %Low1-4[facility] HospitalComment on above:Performed By: #### ERTPF, CONNER, LIP, LIVP, TEGCR ####[address] [address] Immature granulocytes #/vol (Bld)0 %Mekmlk9NziicBethesda North HospitalComment on above:Performed By: #### ERTPF, CONNER, LIP, LIVP, TEGCR ####[address] [address] Lymphocytes Auto #/vol (Bld)1.62 10*3/uLNormal 1.0-4.8[facility] HospitalComment on above:Performed By: #### ERTPF, CONNER, LIP, LIVP, TEGCR ####[address] [address] Lymphocytes/100 WBC Auto (Bld)5 %Yak11-92GygbfBethesda North HospitalComment on above:Performed By: #### ERTPF, CONNER, LIP, LIVP, TEGCR ####[address] [address] Monocytes Auto #/vol (Bld)1.62 10*3/uLHigh0.1-0.8[facility] HospitalComment on above:Performed By: #### ERTPF, CONNER, LIP, LIVP, TEGCR ####[address] [address] Monocytes/100 WBC Auto (Bld)5 %Normal1-7 [facility] HospitalComment on above:Performed By: #### ERTPF, CONNER, LIP, LIVP, TEGCR ####[address] [address] Morphology Interp Eduard (Bld)ANISOCYTOSIS PRESENTNormalBethesda North HospitalComment on above:Result Comment: INCREASED BANDS PRESENT Performed By: #### ERTPF, CONNER, LIP, LIVP, TEGCR ####[address] [address] Neutrophil (Seg)90 %Dgtx91-56OtzqkBethesda North HospitalComment on above:Performed By: #### ERTPF, CONNER, LIP, LIVP, TEGCR ####[address] [address] WBC Auto #/vol (Bld)32.4 10*3/uLCritically high3.5-11.3MRiverside Community HospitalComment on above:Result Comment: TESTCONFIRMEDPerformed By: #### ERTPF, CONNER, LIP, LIVP, TEGCR ####[address] [address] Erythrocyte distribution width Auto Ratio (RBC)16.6 %High11.8-14.4 [facility] HospitalComment on above:Performed By: #### ERTPF, CONNER, LIP, LIVP, TEGCR ####[address] [address] [phone] Auto Volume Fraction (Bld)30.3 %Low40.7-50.3MRiverside Community HospitalComment on above:Performed By: #### ERTPF, CONNER, LIP, LIVP, TEGCR ####[address] [address] Hemoglobin mass conc (Bld)9.6 g/dLLow13.0-17.0[facility] Comment on above:Performed By: #### ERTPF, CONNER, LIP, LIVP, TEGCR ####[address] [address] MC Auto Entitic mass (RBC)30.6 vwCvklbf49.2-33.5[facility] HospitalComment on above: Performed By: #### ERTPF, CONNER, LIP, LIVP, TEGCR ####[address] [address] MCHC Auto mass conc (RBC)31.7 g/dLNormal 28.4-34.8[facility] HospitalComment on above:Performed By: #### ERTPF, CONNER, LIP, LIVP, TEGCR ####[address] [address] MCV Auto Entitic volume (RBC)96.5 bJZtuvbg96.6-102.9[facility] HospitalComment on above:Performed By: #### ERTPF, CONNER, LIP, LIVP, TEGCR ####[facility] [address] [place] [address] NRBC Automated0.0 per 100 WBCNormal0.0[facility] North HospitalComment on above:Performed By: #### ERTPF, CONNER, LIP, LIVP, TEGCR ####[place] [address] Platelet mean volume Auto Entitic volume (Bld)10.9 fLNormal8.1-13.5[facility] HospitalComment on above: Performed By: #### ERTPF, CONNER, LIP, LIVP, TEGCR ####[place] [address] Platelets Auto #/vol (Bld)642 10*3/uLHigh 138-453MerKindred HospitalComment on above:Performed By: #### ERTPF, CONNER, LIP, LIVP, TEGCR ####[place] [address] RBC Auto #/vol (Bld)3.14 10*6/uLLow4.21-5.77[facility] HospitalComment on above:Performed By: #### ERTPF, CONNER, LIP, LIVP, TEGCR ####[place] [address] Auto Diff PerformedNOT REPORTEDNormalBethesda North HospitalComment on above: Performed By: #### ERTPF, CONNER, LIP, LIVP, TEGCR ####[place] [address] Platelets Auto #/vol (Bld)NOT REPORTED NormalBethesda North HospitalComment on above:Performed By: #### ERTPF, CONNER, LIP, LIVP, TEGCR ####[address] [place] [address] RBC morphology finding Nom (Bld)NOT REPORTEDNoMercy Health Fairfield HospitalComment on above:Performed By: #### ERTPF, CONNER, LIP, LIVP, TEGCR ####[address] [place] [address] WBC MorphologyNOT REPORTEDNoMercy Health Fairfield HospitalComment on above: Performed By: #### ERTPF, CONNER, LIP, LIVP, TEGCR ####[facility] [address] [place] [address] CT ABDOMEN PELVIS W IV CONTRASTon [id number] ABDOMEN PELVIS W IV CONTRASTEXAMINATION:CT OF THE [...] evidence for pneumatosis.Interpreted by:NADEGE Dormanigned by:Hudson Anaya MD01/27/inal resultNormalMerKindred HospitalLiver Profileon [id number] mass conc2.5 g/dLLow 3.5-5.2MRiverside Community HospitalComment on above:Performed By: #### ERTPF, CONNER, LIP, LIVP, TEGCR ####[address] [address] Albumin/Globulin mass ratio0.7 {ratio}Low1.0-2.5[facility] HospitalComment on above:Performed By: #### ERTPF, CONNER, LIP, LIVP, TEGCR ####[address] [address] Alkaline Phos77 U/LFtdhsa55-091QtgrtBethesda North HospitalComment on above: Performed By: #### ERTPF, CONNER, LIP, LIVP, TEGCR ####[address] [address] ALT enzyme act/vol25 U/LNormal5-41[facility] HospitalComment on above:Performed By: #### ERTPF, CONNER, LIP, LIVP, TEGCR ####[address] [address] AST enzyme act/vol55 U/LHigh<40MerKindred HospitalComment on above: Performed By: #### ERTPF, CONNER, LIP, LIVP, TEGCR ####[address] [place] [address] Bilirubin Ql (U)1.32 mg/dLHigh0.3-1.2 [facility] HospitalComment on above:Performed By: #### ERTPF, CONNER, LIP, LIVP, TEGCR ####[address] [address] Bilirubin, Indirect0.59 mg/dLNormal0.00-1.00[facility] HospitalComment on above:Performed By: #### ERTPF, CONNER, LIP, LIVP, TEGCR ####[address] [address] Bilirubin.direct mass conc0.73 mg/dLHigh<0.31[facility] Comment on above:Performed By: #### ERTPF, CONNER, LIP, LIVP, TEGCR ####[address] [address] Protein mass conc6.3 g/dLLow6.4-8.3[facility] HospitalComment on above:Performed By: #### ERTPF, CONNER, LIP, LIVP, TEGCR ####[address] [address] Globulin Calculated mass conc (S)NOT REPORTEDNormal1.5-3.8 [facility] HospitalComment on above:Performed By: #### ERTPF, CONNER, LIP, LIVP, TEGCR ####[address] [address] [phone] 02-05-4851Yazaksbcq mass conc2.7 mg/dLHigh1.6-2.6MercSutter Roseville Medical CenterComment on above:Performed By: #### ERTPF, CONNER, LIP, LIVP, TEGCR ####[address] [address] Phosphorus, Inorg.on 89-57-3855Axtqavrzxl, Inorg.3.6 mg/dLNormal2.5-4.5[facility] HospitalComment on above:Performed By: #### ERTPF, CONNER, LIP, LIVP, TEGCR ####[employer] [place] [address] Prealbuminon 29-32-7687Ifnmxmjecn mass conc4.8 mg/kJQtg17-55MbebtBethesda North HospitalComment on above:Performed By: #### ERTPF, CONNER, LIP, LIVP, TEGCR ####[email or web address] [address] [place] [address] TSH w/reflex to FT4on 76-32-0007Ijbgyqnqmdm Qn2.70 m[IU]/LNormal0.30-5.00[facility] HospitalComment on above:Performed By: #### ERTPF, CONNER, LIP, LIVP, TEGCR ####[employer]) Sgbgnkecs[address] [place] [address] Transferrinon 72-82-3749Iynqecazmdo mass nfte955 mg/oIWbp931-776HcuwkBethesda North HospitalComment on above:Performed By: #### ERTPF, CONNER, LIP, LIVP, TEGCR ####[email or web address] X[address]on[address] [place] [address] [id number] XR CHEST PORTABLEon 48-73-1558OO CHEST PORTABLEEXAMINATION:SINGLE XRAY VIEW OF THE CHEST, [...] correlate clinically.Interpreted by:NADEGE Lancasterigned by:Hebert Best MD01/28/18Final resultNormalBethesda North HospitalBasic Metabolic Profon 01-27-2018(cont.)NormalBethesda North HospitalComment on above:Result Comment: Average GFR for 50-59 years old: 93 mL/min/1.73sq mChronic Kidney Disease: <60 mL/min/1.73sq mKidney failure: <15 mL/min/1.73sq meGFR calculated using average adult body mass. Additional eGFR calculator available at:http://www.[employer]/multiple_crcl_2012.htmPerformed By: #### ERTPF, CONNER, LIP, LIVP, TEGCR ####[facility] [address]chwthczul[address] [place] [address] Anion gap 3 molar conc12 mmol/LNormal9-17[facility] HospitalComment on above:Performed By: #### ERTPF, CONNER, LIP, LIVP, TEGCR ####[facility] Sbibcyfwapka2032 [place] [address] Calcium mass conc8.9 mg/dLNormal8.6-10.4[facility] HospitalComment on above: Performed By: #### ERTPF, CONNER, LIP, LIVP, TEGCR ####[facility] Xtnqrmkguarr9387 [place] [address] Chloride molar oavt820 mmol/VEeksnh44-892 [facility] HospitalComment on above:Performed By: #### ERTPF, CONNER, LIP, LIVP, TEGCR ####[facility] Pfzzzvsoyykj8161 [place], [place] [address] WA2 molar conc31 mmol/XJfxjfi13-22EtbilBethesda North Hospital Comment on above:Performed By: #### ERTPF, CONNER, LIP, LIVP, TEGCR ####[facility] Toijmmbeadlu9310 [place] [address] Creatinine mass conc1.26 mg/dLHigh0.70-1.20[facility] HospitalComment on above:Performed By: #### ERTPF, CONNER, LIP, LIVP, TEGCR ####[facility] Ghtihvtgpujc2824 [place] [address] GFR, Amer>60Normal>60[facility] HospitalComment on above:Performed By: #### ERTPF, CONNER, LIP, LIVP, TEGCR ####[facility] Tmdiykndzbjr6873 [place] [address] GFR,non Amer59 mL/minLow>60[facility] HospitalComment on above: Performed By: #### ERTPF, CONNER, LIP, LIVP, TEGCR ####[facility] Wzehrtwvywxu[address] [place] [address] Glucose mass weey406 mg/aBElqo31-06OkbmyRiverside Community HospitalComment on above:Performed By: #### ERTPF, CONNER, LIP, LIVP, TEGCR ####[facility] Xkmuqqlffjuo6569 [place] [address] Potassium molar conc3.9 mmol/LNormal3.7-5.3Mohio[facility]y [facility] Comment on above:Performed By: #### ERTPF, CONNER, LIP, LIVP, TEGCR ####[facility] Ivpzecauskht8531 [place] [address] Sodium molar extb522 mmol/DHviciq708-722NnricBethesda North HospitalComment on above:Performed By: #### ERTPF, CONNER, LIP, LIVP, TEGCR ####[facility] Ztgoqrowgdla7960 [place] [address] Urea nitrogen mass conc27 mg/dLHigh6-20[facility] HospitalComment on above:Performed By: #### ERTPF, CONNER, LIP, LIVP, TEGCR ####[facility]ith[facility]ie [address]hr[address]wmwbfq[address] [place] [address] BUN/CRE RatioNOT REPORTEDNormal9-20[facility] HospitalComment on above:Performed By: #### ERTPF, CONNER, LIP, LIVP, TEGCR ####[place], [place] [phone]:NOT REPORTEDNormalBethesda North HospitalComment on above:Performed By: #### ERTPF, CONNER, LIP, LIVP, TEGCR ####Filomena [address]hpsqlqbghx[address] [place], [place] [phone] with Diffon 32-12-4163Kwv. Basophil0.00 k/uLNormal0.0-0.2MRiverside Community HospitalComment on above:Performed By: #### ERTPF, CONNER, LIP, LIVP, TEGCR ####[place] [address] Abs.Imm.Granulocyte0.24 k/uLNormal0.00-0.30[facility] Comment on above:Performed By: #### ERTPF, CONNER, LIP, LIVP, TEGCR ####[facility] [place], [place] [phone].Neutrophil (Seg) 19.29 k/uLHigh1.8-7.7[facility] HospitalComment on above:Performed By: #### ERTPF, CONNER, LIP, LIVP, TEGCR ####[facility] Eibjaawlmjoi[address] [place], [place] [phone]/100 WBC Auto (Bld)0 %Normal0-2MercSutter Roseville Medical CenterComment on above:Performed By: #### ERTPF, CONNER, LIP, LIVP, TEGCR ####[address] [address] Eosinophils Auto #/vol (Bld)0.96 10*3/uLHigh0.0-0.4[facility] HospitalComment on above:Performed By: #### ERTPF, CONNER, LIP, LIVP, TEGCR ####[address] [address] Eosinophils/100 WBC Auto (Bld)4 %Normal1-4[facility] HospitalComment on above:Performed By: #### ERTPF, CONNER, LIP, LIVP, TEGCR ####[place] [address] Immature granulocytes #/vol (Bld)1 %Jynj0SkqwxBethesda North HospitalComment on above:Performed By: #### ERTPF, CONNER, LIP, LIVP, TEGCR ####[place] [address] Lymphocytes Auto #/vol (Bld)2.65 10*3/uLNormal1.0-4.8[facility] HospitalComment on above:Performed By: #### ERTPF, CONNER, LIP, LIVP, TEGCR ####[place] [address] Lymphocytes/100 WBC Auto (Bld)11 %Gto39-62IqijdBethesda North HospitalComment on above:Performed By: #### ERTPF, CONNER, LIP, LIVP, TEGCR ####[address] [address] Monocytes Auto #/vol (Bld)0.96 10*3/uLHigh 0.1-0.8[facility] HospitalComment on above:Performed By: #### ERTPF, CONNER, LIP, LIVP, TEGCR ####[address] [address] Monocytes/100 WBC Auto (Bld)4 %Normal1-7[facility] HospitalComment on above:Performed By: #### ERTPF, CONNER, LIP, LIVP, TEGCR ####[facility] Crtolzdkfphi5801 [place] [address] Morphology Interp Eduard (Bld)ANISOCYTOSIS PRESENTNormalBethesda North Hospital Comment on above:Result Comment: INCREASED BANDS PRESENTTOXIC GRANULATION PRESENTPerformed By: #### ERTPF, CONNER, LIP, LIVP, TEGCR ####[facility] Mftcrzntozzn[address] [place] [address] Neutrophil (Seg)80 %High 36-66[facility] HospitalComment on above:Performed By: #### ERTPF, CONNER, LIP, LIVP, TEGCR ####[facility] Morpvhmdoy[address] [place] [address] 43[address] Nucleated RBC/100 WBC Ratio (Bld)1 per 100 KLQTxyq1YtqgmBethesda North HospitalComment on above:Performed By: #### ERTPF, CONNER, LIP, LIVP, TEGCR ####[facility] Nmjscpoejwbu1349 [place] [address] Erythrocyte distribution width Auto Ratio (RBC)16.1 %High11.8-14.4[facility] HospitalComment on above:Performed By: #### ERTPF, CONNER, LIP, LIVP, TEGCR ####[facility] Lrodzxxgqfuh6198 [place] [address] Hematocrit Auto Volume Fraction (Bld)31.8 %Low40.7-50.3MRiverside Community HospitalComment on above:Performed By: #### ERTPF, CONNER, LIP, LIVP, TEGCR ####[facility] Ufilnqgsctjy8474 [place] [address] Hemoglobin mass conc (Bld)10.1 g/dLLow13.0-17.0[facility] HospitalComment on above:Performed By: #### ERTPF, CONNER, LIP, LIVP, TEGCR ####[facility] Hsfjbjcj[address] [place] [address] MCH Auto Entitic mass (RBC)30.5 pgNormal 25.2-33.5[facility] HospitalComment on above:Performed By: #### ERTPF, CONNER, LIP, LIVP, TEGCR ####[facility] [address] [place] [address] MCHC Auto mass conc (RBC)31.8 g/jIJciytu20.4-34.8[facility] HospitalComment on above:Performed By: #### ERTPF, CONNER, LIP, LIVP, TEGCR ####[place] [address] MCV Auto Entitic volume (RBC)96.1 lWEpkpza72.6-102.9[facility] Comment on above:Performed By: #### ERTPF, CONNER, LIP, LIVP, TEGCR ####[place] [address] NRBC Automated0.1 per 100 WBCHigh0.0[facility] HospitalComment on above:Performed By: #### ERTPF, CONNER, LIP, LIVP, TEGCR ####[facility] Ubldwpidyrav[address] [place] [address] Platelet mean volume Auto Entitic volume (Bld)11.0 fLNormal 8.1-13.5[facility] HospitalComment on above:Performed By: #### ERTPF, CONNER, LIP, LIVP, TEGCR ####[place] [address] Platelets Auto #/vol (Bld)488 10*3/eUGueo321-374KgcjaKindred HospitalComment on above:Performed By: #### ERTPF, CONNER, LIP, LIVP, TEGCR ####[facility] Szrlpebirczz[address] [place] [address] RBC Auto #/vol (Bld)3.31 10*6/uLLow4.21-5.77MerKindred HospitalComment on above:Performed By: #### ERTPF, CONNER, LIP, LIVP, TEGCR ####[facility] Nolsmkrzwlx[address] [place] [address] WBC Auto #/vol (Bld)24.1 10*3/uLHigh3.5-11.3MercSutter Roseville Medical CenterComment on above:Performed By: #### ERTPF, CONNER, LIP, LIVP, TEGCR ####[address] [address] Auto Diff PerformedNOT REPORTEDClermont County HospitalComment on above:Performed By: #### ERTPF, CONNER, LIP, LIVP, TEGCR ####[address] [address] Platelets Auto #/vol (Bld)NOT REPORTEDClermont County Hospital Comment on above:Performed By: #### ERTPF, CONNER, LIP, LIVP, TEGCR ####[facility] [address]ts[address] [place] [address] RBC morphology finding Nom (Bld)NOT REPORTEDClermont County HospitalComment on above: Performed By: #### ERTPF, CONNER, LIP, LIVP, TEGCR ####[facility] [address] [address] WBC MorphologyNOT REPORTEDClermont County HospitalComment on above:Performed By: #### ERTPF, CONNER, LIP, LIVP, TEGCR ####[facility] [address]qhnnvms[address] [place] [address] Magnesiumon 29-91-4330Xtamfroii mass conc2.6 mg/dLNormal1.6-2.6[facility] HospitalComment on above:Performed By: #### ERTPF, CONNER, LIP, LIVP, TEGCR ####Sarith[facility] [address]ng[address]rrrxhv[address] [place] [address] Phosphorus, Inorg.on 10-07-1929Crhxyxajfn, Inorg.4.5 mg/dLNormal2.5-4.5MerKindred HospitalComment on above:Performed By: #### ERTPF, CONNER, LIP, LIVP, TEGCR ####[facility] [address]zxgbfasqjx[address] [place] [address] Vancomycin,Randomon 62-13-3205Lzochmlwno29.1 ug/mLNormalBethesda North HospitalComment on above:Result Comment: Higher trough serum vancomycin concentrations of 15-20 ug/mL are recommended for complicated infections such as bacteremia, endocarditis, osteomyelitis, meningitis, and hospital acquired pneumonia.Performed By: #### ERTPF, CONNER, LIP, LIVP, TEGCR ####[facility] [address]kxltbgtyn[address] [place] [address] Date last dose,NOT REPORTEDNormalBethesda North HospitalComment on above:Performed By: #### ERTPF, CONNER, LIP, LIVP, TEGCR ####[facility] [address]ott[address]irnvz[address] [place] [address] Dose amount,NOT REPORTEDNormLima City HospitalComment on above:Performed By: #### ERTPF, CONNER, LIP, LIVP, TEGCR ####[facility] [address]jagpzeoyfgp[address] [place] [address] Time last dose,NOT REPORTEDNormalBethesda North HospitalComment on above:Performed By: #### ERTPF, CONNER, LIP, LIVP, TEGCR ####[facility] Qkphlamzfpku7629 [place] [address] XR ABDOMEN (KUB) (SINGLE AP VIEW)on 74-30-7483XQ ABDOMEN (KUB) (SINGLE AP VIEW)EXAMINATION:SINGLE SUPINE XRAY [...] bibasilar pulmonaryopacities.Interpreted by:NADEGE Gabrieligned by:Molly Moreno MD01/27/18inal resultNormalMercy [facility] Community HospitalXR ABDOMEN (KUB) (SINGLE AP VIEW)EXAMINATION:SINGLE SUPINE [...] to a licensed caregiver.Interpreted by:Mcclainigned by:Cecile García, DO01/27/18Final resultNormalBethesda North HospitalXR LUMBAR SPINE (2-3 VIEWS)on 55-40-5882HK LUMBAR SPINE (2-3 VIEWS)EXAMINATION:3 XRAY VIEWS OF [...] ileus.Interpreted by:Fidel Marley MDSigned by:Fidel Marley MD01/27/18Final resultNormalMerKindred HospitalBasic Metabolic Profon 01-26-2018(cont.)NormalMercy [facility] Community HospitalComment on above: Result Comment: Average GFR for 50-59 years old: 93 mL/min/1.73sq mChronic Kidney Disease: <60 mL/min/1.73sq mKidney failure: <15 mL/min/1.73sq meGFR calculated using average adult body mass. Additional eGFR calculator available at:http://www.[employer]/multiple_crcl_2012.htmPerformed By: #### ERTPF, CONNER, LIP, LIVP, TEGCR ####[place] [address] [place] 516530 Anion gap 3 molar conc13 mmol/LNormal9-17[facility]ylo Medical CenterComment on above:Performed By: #### ERTPF, CONNER, LIP, LIVP, TEGCR ####[facility] Mhqnqnoqpdyq1326 [place] [address] Calcium mass conc8.3 mg/dLLow8.6-10.4[facility] HospitalComment on above: Performed By: #### ERTPF, CONNER, LIP, LIVP, TEGCR ####[facility] Cmsznxdobbct5800 [place] [address] Chloride molar conc95 mmol/CYwp31-970 [facility] HospitalComment on above:Performed By: #### ERTPF, CONNER, LIP, LIVP, TEGCR ####[facility] Lqoliihlfzol6636 [place] 43[address] EY1 molar conc31 mmol/SAolpxp24-64AdxvzBethesda North Hospital Comment on above:Performed By: #### ERTPF, CONNER, LIP, LIVP, TEGCR ####[facility] Shwhhhrqsxwu3563 [place] [address] Creatinine mass conc1.14 mg/dLNormal0.70-1.20[facility] HospitalComment on above:Performed By: #### ERTPF, CONNER, LIP, LIVP, TEGCR ####[place] [address] [place] [address] GFR, Amer>60Normal>60[facility] HospitalComment on above:Performed By: #### ERTPF, CONNER, LIP, LIVP, TEGCR ####[facility] Fhyuqbdhwinw1110 [place] [address] GFR,non Amer>60Normal>60[facility] HospitalComment on above: Performed By: #### ERTPF, CONNER, LIP, LIVP, TEGCR ####[facility] Yfbpgnokemlq4674 [place] [address] Glucose mass ctbm673 mg/cASdua72-88Nrtkl [facility] HospitalComment on above:Performed By: #### ERTPF, CONNER, LIP, LIVP, TEGCR ####[facility] [address]jnefpbanj5850 [place] [address] Potassium molar conc3.2 mmol/LLow3.7-5.3[facility] HospitalComment on above:Performed By: #### ERTPF, CONNER, LIP, LIVP, TEGCR ####[facility] Ngzfjbwynzsj8901 [place] [address] Sodium molar bcez011 mmol/VKwwhjq639-634HwsmaBethesda North HospitalComment on above:Performed By: #### ERTPF, CONNER, LIP, LIVP, TEGCR ####[facility] [address]apfpdecf[address] [place] [address] Urea nitrogen mass conc21 mg/dLHigh6-20[facility] HospitalComment on above:Performed By: #### ERTPF, CONNER, LIP, LIVP, TEGCR ####[facility] Vqcsukmshgkq6398 [place] [address] BUN/CRE RatioNOT REPORTEDNormal9-20[facility] HospitalComment on above:Performed By: #### ERTPF, CONNER, LIP, LIVP, TEGCR ####[facility] Rkitwtphkqlq5417 [place] [address] Staging:NOT REPORTEDNormalBethesda North HospitalComment on above:Performed By: #### ERTPF, CONNER, LIP, LIVP, TEGCR ####[facility] Vxkgrcuoyxhc4356 [place] [address] Brain Natri. Peptideon 63-13-5400Hmzpmcmmpmw peptide B mass conc (Bld)2216 pg/mLHigh <300MerKindred HospitalComment on above:Result Comment: Pro-BNP results cannot be compared to BNP results.Performed By: #### ERTPF, CONNER, LIP, LIVP, TEGCR ####[facility] [address]ql[address] [place] [address] Natriuretic peptide B mass conc (Bld)NormalBethesda North Hospital Comment on above:Result Comment: Pro-BNP Reference Range:Rule Out: <300[place]: Age <50 300-450 Age 50-75 300-900 Age >75 300-1800Usually represents mild to moderate HF but other cardiopulmonary causes cannot be ruled out.Rule In: Age <50 >450 Age 50-75 >900 Age >75 >1800Performed By: #### ERTPF, CONNER, LIP, LIVP, TEGCR ####[facility] [address]tnirbclvh[address] [place] [address] CBC with Diffon 58-22-1926Doy. Basophil0.00 k/uLNormal0.0-0.2MRiverside Community HospitalComment on above:Performed By: #### ERTPF, CONNER, LIP, LIVP, TEGCR ####[facility] Jriutfqshbci[address] [place] [address] Abs.Imm.Granulocyte0.00 k/uLNormal0.00-0.30[facility] HospitalComment on above:Performed By: #### ERTPF, CONNER, LIP, LIVP, TEGCR ####[facility] [address]lslyh[address] [place] [address] Abs.Neutrophil (Seg)21.60 k/uLHigh1.8-7.7[facility] HospitalComment on above:Performed By: #### ERTPF, CONNER, LIP, LIVP, TEGCR ####[facility] Jnmlqqvippuk[address] [place] [address] Basophils/100 WBC Auto (Bld)0 %Normal0-2MRiverside Community HospitalComment on above:Performed By: #### ERTPF, CONNER, LIP, LIVP, TEGCR ####[facility] [address]vvimiljp[address] [place] [address] Eosinophils Auto #/vol (Bld)0.00 10*3/uLNormal0.0-0.4[facility] HospitalComment on above: Performed By: #### ERTPF, CONNER, LIP, LIVP, TEGCR ####[address] [address] Eosinophils/100 WBC Auto (Bld)0 %Low1-4 [facility] HospitalComment on above:Performed By: #### ERTPF, CONNER, LIP, LIVP, TEGCR ####[address] 43[address] Immature granulocytes #/vol (Bld)0 %Vbghyb9XkvtkBethesda North HospitalComment on above:Performed By: #### ERTPF, CONNER, LIP, LIVP, TEGCR ####[address] [address] Lymphocytes Auto #/vol (Bld)3.17 10*3/uLNormal1.0-4.8[facility] HospitalComment on above:Performed By: #### ERTPF, CONNER, LIP, LIVP, TEGCR ####[address] [address] Lymphocytes/100 WBC Auto (Bld)11 %Wfs92-95RvaosBethesda North HospitalComment on above:Performed By: #### ERTPF, CONNER, LIP, LIVP, TEGCR ####[address] [address] Monocytes Auto #/vol (Bld)4.03 10*3/uLHigh0.1-0.8[facility] HospitalComment on above:Performed By: #### ERTPF, CONNER, LIP, LIVP, TEGCR ####[address] [address] Monocytes/100 WBC Auto (Bld)14 %High1-7[facility] HospitalComment on above:Performed By: #### ERTPF, CONNER, LIP, LIVP, TEGCR ####Sar[facility] Rxamkmygceyy5672 [place] [address] Morphology Interp Eduard (Bld)ANISOCYTOSIS PRESENTNormalMerKindred HospitalComment on above: Result Comment: INCREASED BANDS PRESENTTOXIC GRANULATION PRESENTPerformed By: #### ERTPF, CONNER, LIP, LIVP, TEGCR ####[address] [address] Neutrophil (Seg)75 %Gwht24-11GaauqBethesda North HospitalComment on above:Performed By: #### ERTPF, CONNER, LIP, LIVP, TEGCR ####[facility] [address]rv[address] [place] [address] Erythrocyte distribution width Auto Ratio (RBC)16.2 %High11.8-14.4[facility] HospitalComment on above:Result Comment: ADDED ONPerformed By: #### ERTPF, OCNNER, LIP, LIVP, TEGCR ####[address] 43[address] Hematocrit Auto Volume Fraction (Bld)31.2 %Low40.7-50.3[facility] HospitalComment on above:Result Comment: ADDED ONPerformed By: #### ERTPF, CONNER, LIP, LIVP, TEGCR ####[facility] [address]lpbaaw[address] [place] [address] Hemoglobin mass conc (Bld)10.1 g/dLLow13.0-17.0[facility] HospitalComment on above:Result Comment: ADDED ONPerformed By: #### ERTPF, CONNER, LIP, LIVP, TEGCR ####[facility] Vfxvrmqluaml4258 [place] [address] MCH Auto Entitic mass (RBC)30.9 sbMktagx93.2-33.5[facility] HospitalComment on above:Result Comment: ADDED ONPerformed By: #### ERTPF, CONNER, LIP, LIVP, TEGCR ####[address] [address] MCHC Auto mass conc (RBC)32.4 g/gPGgpmjv65.4-34.8[facility] HospitalComment on above:Result Comment: ADDED ONPerformed By: #### ERTPF, CONNER, LIP, LIVP, TEGCR ####[address] [address] MCV Auto Entitic volume (RBC)95.4 wTDglixr62.6-102.9[facility] HospitalComment on above:Result Comment: ADDED ONPerformed By: #### ERTPF, CONNER, LIP, LIVP, TEGCR ####[place] [address] NRBC Automated0.1 per 100 WBCHigh0.0[facility] HospitalComment on above:Result Comment: ADDED ONPerformed By: #### ERTPF, CONNER, LIP, LIVP, TEGCR ####[address] [address] Platelet mean volume Auto Entitic volume (Bld)11.4 fLNormal 8.1-13.5[facility] HospitalComment on above:Result Comment: ADDED ONPerformed By: #### ERTPF, CONNER, LIP, LIVP, TEGCR ####[address] [address] Platelets Auto #/vol (Bld)328 10*3/uL Pfljnl609-260SjimwBethesda North HospitalComment on above:Result Comment: ADDED ONPerformed By: #### ERTPF, CONNER, LIP, LIVP, TEGCR ####[facility] Ntfoxvsmrzuh[address]14 [place] [address] RBC Auto #/vol (Bld)3.27 10*6/uLLow4.21-5.77MerKindred HospitalComment on above:Result Comment: ADDED ONPerformed By: #### ERTPF, CONNER, LIP, LIVP, TEGCR ####[facility] [address] [place] [address] WBC Auto #/vol (Bld)28.8 10*3/uLHigh3.5-11.3[facility] HospitalComment on above:Result Comment: ADDED ONPerformed By: #### ERTPF, CONNER, LIP, LIVP, TEGCR ####[address] [address] Auto Diff PerformedNOT REPORTEDClermont County HospitalComment on above:Performed By: #### ERTPF, CONNER, LIP, LIVP, TEGCR ####[facility] [address]imsmnmg[address] [place] [address] Platelets Auto #/vol (Bld)NOT REPORTEDClermont County HospitalComment on above:Performed By: #### ERTPF, CONNER, LIP, LIVP, TEGCR ####[facility] [address]clmyqwwndjy[address] [place] [address] RBC morphology finding Nom (Bld)NOT REPORTEDNoMercy Health [facility] Comment on above:Performed By: #### ERTPF, CONNER, LIP, LIVP, TEGCR ####[facility] [address] [place] [address] WBC MorphologyNOT REPORTEDClermont County HospitalComment on above:Performed By: #### ERTPF, CONNER, LIP, LIVP, TEGCR ####[facility] [address] [place] [address] Calcium, Ionicon 28-13-7165Erfwuhu mass conc1.22 mmol/L Normal1.13-1.33[facility] HospitalComment on above:Performed By: #### ERTPF, CONNER, LIP, LIVP, TEGCR ####[facility] Jygxoclmasjc3873 [place] [address] Calcium mass conc1.04 mmol/LLow1.13-1.33[facility] HospitalComment on above:Performed By: #### ERTPF, CONNER, LIP, LIVP, TEGCR ####[address] [address] K (Potassium) on 14-28-1413Xvbcxlwca molar conc3.7 mmol/LNormal3.7-5.3MRiverside Community HospitalComment on above:Performed By: #### ERTPF, CONNER, LIP, LIVP, TEGCR ####[facility] [address] [place] [id number] Potassium molar conc3.2 mmol/LLow3.7-5.3MRiverside Community HospitalComment on above: Performed By: #### ERTPF, CONNER, LIP, LIVP, TEGCR ####[facility] [address] [place] [address] Potassium molar conc3.3 mmol/LLow3.7-5.3 [facility] HospitalComment on above:Performed By: #### ERTPF, CONNER, LIP, LIVP, TEGCR ####[facility] [address] [place] [address] Magnesiumon 33-06-3299Ytbrqunff mass conc2.2 mg/dLNormal1.6-2.6 [facility] HospitalComment on above:Performed By: #### ERTPF, CONNER, LIP, LIVP, TEGCR ####[facility] [address] [place], [place] [address] Phosphorus, Inorg.on 22-41-8934Gtbuycjqdr, Inorg.3.8 mg/dLNormal 2.5-4.5[facility] HospitalComment on above:Performed By: #### ERTPF, CONNER, LIP, LIVP, TEGCR ####[address] [address] Vancomycin Troughon 43-03-9251Tszqnjhovz Jgngez36.3 ug/mL Critically high10.0-20.0[facility] HospitalComment on above:Result Comment: Higher trough serum vancomycin concentrations of 15-20 ug/mL are recommended for complicated infections such as bacteremia, endocarditis, osteomyelitis, meningitis, and hospital acquired pneumonia.ADDED ONPerformed By: #### ERTPF, CONNER, LIP, LIVP, TEGCR ####[address] [id number] last dose,.[facility] Comment on above:Performed By: #### ERTPF, CONNER, LIP, LIVP, TEGCR ####[address] [phone] amount,.[facility] O'Bleness HospitalComment on above:Performed By: #### ERTPF, CONNER, LIP, LIVP, TEGCR ####[address] [address] Time last dose,.[facility] Jewish HospitalComment on above:Performed By: #### ERTPF, CONNER, LIP, LIVP, TEGCR ####[address] [address] XR ABDOMEN (KUB) (SINGLE AP VIEW)on 32-09-9218VM ABDOMEN (KUB) (SINGLE AP VIEW)EXAMINATION:SINGLE SUPINE XRAY [...] the stomach.Interpreted by:NADEGE Burksigned by:Fidel Marley MD01/26/18Final [facility] HospitalXR CHEST PORTABLEon [id number] CHEST PORTABLE EXAMINATION:SINGLE XRAY VIEW OF THE CHEST01/26/2018 5:46 amCOMPARISON:01/25/2018HISTORY:ORDERING SYSTEM PROVIDED HISTORY: comparisonTECHNOLOGIST PROVIDED HISTORY:comparisonFINDINGS:Mild cardiomegaly. I ncreased pulmonary vascular congestion and interstitialedema. Increasing although small bilateral pleural effusions. Nopneumothorax. Basilar atelectasis. No focal consolidation.IMPRESSION: Increasingpulmonary edema and pleural effusions.Interpreted by:NADEGE Wootenigned by:Yadira Wooten D01/26/18Final [facility] HospitalBasic Metabolic Profon 15-50-6116Icqibstujm mass conc0.72 mg/dLNormal0.70-1.20[facility] North HospitalComment on above:Result Comment: ICTERIC SPECIMENPerformed By: #### ERTPF, CONNER, LIP, LIVP, TEGCR ####[employer] ([employer]) Yadzjsdxhmoj9981 [place] [address] GFR, Amer>60Normal>60[facility] North HospitalComment on above:Performed By: #### ERTPF, CONNER, LIP, LIVP, TEGCR ####[employer] ([employer]) Obzgddpeofop9904 [place] [address] GFR,non Amer>60 Normal>60[facility] HospitalComment on above:Performed By: #### ERTPF, CONNER, LIP, LIVP, TEGCR ####[facility] Txhgdbdmpffj1609 [place] [address] (cont.)NormalBethesda North HospitalComment on above: Result Comment: Average GFR for 50-59 years old: 93 mL/min/1.73sq mChronic Kidney Disease: <60 mL/min/1.73sq mKidney failure: <15 mL/min/1.73sq meGFR calculated using average adult body mass. Additional eGFR calculator available at:http://www.[facility] [facility]/multiple_crcl_2012.htmPerformed By: #### ERTPF, CONNER, LIP, LIVP, TEGCR ####[place] [place] [address] Anion gap 3 molar conc14 mmol/LNormal9-17[facility] North HospitalComment on above:Performed By: #### ERTPF, CONNER, LIP, LIVP, TEGCR ####[facility] Xwosraavrbxj7803 [place] [address] Calcium mass conc8.6 mg/dLNormal8.6-10.4[facility] North HospitalComment on above: Performed By: #### ERTPF, CONNER, LIP, LIVP, TEGCR ####[facility] Mbvkumsoipni3484 [place] [address] Chloride molar conc97 mmol/RWfl50-196 [facility] HospitalComment on above:Performed By: #### ERTPF, CONNER, LIP, LIVP, TEGCR ####[facility] Milvsthqikxk5623 [place] [address] TI6 molar conc24 mmol/IIamjwk30-23DwtawBethesda North Hospital Comment on above:Performed By: #### ERTPF, CONNER, LIP, LIVP, TEGCR ####[facility] [place] [address] Glucose mass pstn373 mg/aRNlvc59-34Vyemk [facility] HospitalComment on above:Performed By: #### ERTPF, CONNER, LIP, LIVP, TEGCR ####[address] [address] Potassium molar conc3.3 mmol/LLow3.7-5.3[facility] Community HospitalComment on above:Performed By: #### ERTPF, CONNER, LIP, LIVP, TEGCR ####[address] [address] Sodium molar ueav760 mmol/PQoovri032-187KhvqbBethesda North HospitalComment on above: Performed By: #### ERTPF, CONNER, LIP, LIVP, TEGCR ####[address] [address] Urea nitrogen mass conc14 mg/dLNormal6-20 [facility] HospitalComment on above:Performed By: #### ERTPF, CONNER, LIP, LIVP, TEGCR ####[address] [address] BUN/CRE RatioNOT REPORTEDNormal9-20[facility] HospitalComment on above:Performed By: #### ERTPF, CONNER, LIP, LIVP, TEGCR ####[address] [address] Staging:NOT REPORTED NormalBethesda North HospitalComment on above:Performed By: #### ERTPF, CONNER, LIP, LIVP, TEGCR ####[address] [address] CBC with Diffon 79-47-8783Vdm. Basophil0.00 k/uLNormal0.0-0.2[facility]y [facility] HospitalComment on above:Performed By: #### ERTPF, CONNER, LIP, LIVP, TEGCR ####[address] [address] Abs.Imm.Granulocyte1.00 k/uLHigh0.00-0.30[facility] HospitalComment on above:Performed By: #### ERTPF, CONNER, LIP, LIVP, TEGCR ####[address] [address] Abs.Neutrophil (Seg) 15.00 k/uLHigh1.8-7.7[facility] HospitalComment on above:Performed By: #### ERTPF, CONNER, LIP, LIVP, TEGCR ####[address] [address] Basophils/100 WBC Auto (Bld)0 %Normal0-2MRiverside Community HospitalComment on above:Performed By: #### ERTPF, CONNER, LIP, LIVP, TEGCR ####[place] [address] Eosinophils Auto #/vol (Bld)0.20 10*3/uLNormal0.0-0.4[facility] HospitalComment on above:Performed By: #### ERTPF, CONNER, LIP, LIVP, TEGCR ####[address] [address] Eosinophils/100 WBC Auto (Bld)1 %Normal1-4[facility] HospitalComment on above:Performed By: #### ERTPF, CONNER, LIP, LIVP, TEGCR ####[address] [address] Immature granulocytes #/vol (Bld)5 %Dodg0PbwjoBethesda North HospitalComment on above:Performed By: #### ERTPF, CONNER, LIP, LIVP, TEGCR ####[address] [address] Lymphocytes Auto #/vol (Bld)1.20 10*3/uLNormal1.0-4.8[facility] HospitalComment on above:Performed By: #### ERTPF, CONNER, LIP, LIVP, TEGCR ####[facility] [address] [place] [address] Lymphocytes/100 WBC Auto (Bld)6 %Ugg26-48RyvubBethesda North HospitalComment on above:Performed By: #### ERTPF, CONNER, LIP, LIVP, TEGCR ####[address] [address] Monocytes Auto #/vol (Bld)2.60 10*3/uLHigh 0.1-0.8[facility] HospitalComment on above:Performed By: #### ERTPF, CONNER, LIP, LIVP, TEGCR ####[facility] Snwwpcxs[address] [place] [address] Monocytes/100 WBC Auto (Bld)13 %High1-7[facility] North HospitalComment on above:Performed By: #### ERTPF, CONNER, LIP, LIVP, TEGCR ####[facility] Wh[address]ixnsm[address] [place] [address] Morphology Interp Eduard (Bld)INCREASED BANDS PRESENTNormalBethesda North Hospital Comment on above:Result Comment: ANISOCYTOSIS PRESENTTOXIC GRANULATION PRESENT Performed By: #### ERTPF, CONNER, LIP, LIVP, TEGCR ####[facility] Oixbgavvrppg0831 [place] [address] Neutrophil (Seg)75 %Ddmj48-42YqczvBethesda North HospitalComment on above:Performed By: #### ERTPF, CONNER, LIP, LIVP, TEGCR ####[facility] [address]nsmgky[address]ub[address] [place] [address] NRBC Automated0.1 per 100 WBCHigh0.0Mercy Mylo Medical CenterComment on above: Performed By: #### ERTPF, CONNER, LIP, LIVP, TEGCR ####[facility] [address] [place] [address] Platelet mean volume Auto Entitic volume (Bld)11.5 fLNormal8.1-13.5[facility] HospitalComment on above: Performed By: #### ERTPF, CONNER, LIP, LIVP, TEGCR ####[facility] Injqfvcrfj[address] [place] [address] Platelets Auto #/vol (Bld)216 10*3/uL Zsqxdt298-349IzinoBethesda North HospitalComment on above:Performed By: #### ERTPF, CONNER, LIP, LIVP, TEGCR ####[place] [address] WBC Auto #/vol (Bld)20.0 10*3/uLHigh3.5-11.3MRiverside Community HospitalComment on above:Performed By: #### ERTPF, CONNER, LIP, LIVP, TEGCR ####[address] [address] Erythrocyte distribution width Auto Ratio (RBC)15.7 %High11.8-14.4[facility] HospitalComment on above:Performed By: #### ERTPF, CONNER, LIP, LIVP, TEGCR ####[address] [address] Hematocrit Auto Volume Fraction (Bld)33.8 %Low40.7-50.3[facility]y [facility] HospitalComment on above:Performed By: #### ERTPF, CONNER, LIP, LIVP, TEGCR ####[address] [address] Hemoglobin mass conc (Bld)11.3 g/dLLow 13.0-17.0[facility] HospitalComment on above:Performed By: #### ERTPF, CONNER, LIP, LIVP, TEGCR ####[facility] [address] [place] [address] [facility] Auto Entitic mass (RBC)30.9 xdKbjtuo94.2-33.5[facility] HospitalComment on above:Performed By: #### ERTPF, CONNER, LIP, LIVP, TEGCR ####[facility]omena Eqpx[address] [place] [address] [facility] Auto mass conc (RBC)33.4 g/fYXlhckp24.4-34.8[facility] Comment on above:Performed By: #### ERTPF, CONNER, LIP, LIVP, TEGCR ####Filomena [place], [place] [id number])[phone] Auto Entitic volume (RBC)92.3 rENagccr95.6-102.9[facility] HospitalComment on above: Performed By: #### ERTPF, CONNER, LIP, LIVP, TEGCR ####Filomena [place], [place] [phone])[phone] Auto #/vol (Bld)3.66 10*6/uLLow 4.21-5.77[facility] HospitalComment on above:Performed By: #### ERTPF, CONNER, LIP, LIVP, TEGCR ####[facility]a [address] [place], [place] [phone])[phone] Diff PerformedNOT REPORTEDClermont County HospitalComment on above:Performed By: #### ERTPF, CONNER, LIP, LIVP, TEGCR ####[facility] [address] [place] [address] [phone] Auto #/vol (Bld)NOT REPORTEDClermont County HospitalComment on above: Performed By: #### ERTPF, CONNER, LIP, LIVP, TEGCR ####[employer] ([employer]) Jdjlvnasxwby1125 [place] [address] RBC morphology finding Nom (Bld)NOT REPORTEDNoMercy Health Fairfield HospitalComment on above:Performed By: #### ERTPF, CONNER, LIP, LIVP, TEGCR ####[employer] ([employer]) Apkpqagmacys3282 [place] [address] WBC MorphologyNOT REPORTEDNormLima City HospitalComment on above:Performed By: #### ERTPF, CONNER, LIP, LIVP, TEGCR ####[facility] ([employer]) Uzzbloacvhxo3217 [place] [address] CT ABDOMEN PELVIS W IV CONTRASTon 57-03-2333NN ABDOMEN PELVIS W IV CONTRASTEXAMINATION:CT OF THE [...] partial ileoc olectomy.Interpreted by:NADEGE Dormanigned by:Hudson Anaya MD01/25/inal resultNormalMerKindred HospitalCalcium, Ionicon 22-58-1691Ndfjysl mass conc1.09 mmol/LLow1.13-1.33[facility] HospitalComment on above:Performed By: #### CALLY IOCAL ####[facility] [address] [place] [address] K (Potassium)on 71-72-0011Fwveyoaca molar conc3.4 mmol/LLow3.7-5.3MRiverside Community HospitalComment on above: Performed By: #### ERTPF, CONNER, LIP, LIVP, TEGCR ####[facility] Hmbobxafbyud9619 [place] [address] Potassium molar conc3.3 mmol/LLow3.7-5.3 [facility] HospitalComment on above:Performed By: #### OHP, IOCAL ####[facility] [address] [place] [address] Magnesiumon 52-89-2596Juxkopnwc mass conc2.1 mg/dLNormal1.6-2.6MercSutter Roseville Medical CenterComment on above:Performed By: #### ERTPF, CONNER, LIP, LIVP, TEGCR ####[facility] [address] [place] [address] Phosphorus, Inorg.on 05-10-7949Qndemggaod, Inorg.3.0 mg/dLNormal2.5-4.5[facility] HospitalComment on above:Performed By: #### ERTPF, CONNER, LIP, LIVP, TEGCR ####[facility] Khxlzcysrabp1611 [place] [address] Vancomycin Troughon 51-50-3362Atfecoqgun Bdzrfk61.2 ug/qDYhuzzl74.0-20.0MerKindred HospitalComment on above:Result Comment: Higher trough serum vancomycin concentrations of 15-20 ug/mL are recommended for complicated infections such as bacteremia, endocarditis, osteomyelitis, meningitis, and hospital acquired pneumonia.Performed By: #### ERTPF, CONNER, LIP, LIVP, TEGCR ####[facility] Fwahgzqsnush8520 [place] [address] Date last dose,NOT REPORTEDNormalBethesda North HospitalComment on above:Performed By: #### ERTPF, CONNER, LIP, LIVP, TEGCR ####[facility] Zmcyrgwxvacu9641 [place] [address] Dose amount,NOT REPORTEDNormalBethesda North HospitalComment on above:Performed By: #### ERTPF, CONNER, LIP, LIVP, TEGCR ####[facility] Uehysilmilfe1560 [place], [place] [phone] last dose,NOT REPORTEDNormalBethesda North HospitalComment on above:Performed By: #### ERTPF, CONNER, LIP, LIVP, TEGCR ####[facility] Lgqbagopawvx0985 [place] [address] XR CHEST PORTABLEon 77-68-5657QX CHEST PORTABLE EXAMINATION:SINGLE XRAY VIEW OF THE CHEST01/25/2018 10:00 amCOMPARISON:January 24, 2018HISTORY:ORDERING SYSTEM PROVIDED HISTORY: comparisonTECHNOLOGIST PROVIDED HISTORY:comparisonFINDINGS:Enteric tube extends beyond the gastroesophageal junction.Slightly improved bilateral lung opacities.Cardiomega ly. Mild pulmonary edema.IMPRESSION: Slightly improved bilateral lung opacities. Likely decreased pleuraleffusions and atelectasis.Enteric tube extends beyond the gastroesophageal junction.Interpreted by:NADEGE Escalanteigned by:Cassie Torres MD9/24/18Final resultNormalMerKindred HospitalBasic Metabolic Profon 88-47-7217Dihawkvsh molar conc2.9 mmol/LCritically low3.7-5.3MRiverside Community HospitalComment on above:Performed By: ###YURI WISEMANCAL ####[facility] [address]ueqyn[address] [place] [address] (cont.)NormalBethesda North HospitalComment on above:Result Comment: Average GFR for 50-59 years old: 93 mL/min/1.73sq mChronic Kidney Disease: <60 mL/min/1.73sq mKidney failure: <15 mL/min/1.73sq meGFR calculated using average adult body mass. Additional eGFR calculator available at:http://www.[place] [facility]/multiple_crcl_2012.htmPerformed By: #### YURI ALAMOCAL ####[facility] Vmqmodpvfitw6268 [place] [address] Anion gap 3 molar conc9 mmol/LNormal9-17[facility] HospitalComment on above: Performed By: ###YURI WISEMANCAL ####[facility] Nyighmtcwglt0565 [place] [address] Calcium mass conc8.1 mg/dLLow8.6-10.4[facility] HospitalComment on above:Performed By: #### CALLY IOCAL ####[facility] Doevxzqiesqw6489 [place] [address] Chloride molar conc95 mmol/KAlj64-369 [facility] HospitalComment on above:Performed By: #### CALLY IOCAL ####[facility] Fsjxepxbsnnz9023 [place] [address] ZI4 molar conc 29 mmol/BJudttu27-94BeyorBethesda North HospitalComment on above:Performed By: #### CALLY IOCAL ####[facility] Qowxzcikknzx3121 [place] [address] Creatinine mass conc0.55 mg/dLLow0.70-1.20[facility] HospitalComment on above:Performed By: #### OHAmrik, IOCAL ####[facility] Viajuxcdinzx6936 [place] [address] GFR, Amer>60 Normal>60[facility] HospitalComment on above:Performed By: #### OHAmrik, IOCAL ####[facility] Fhllvtsyhbgq7079 [place] [address] GFR,non Amer>60Normal>60[facility] HospitalComment on above:Performed By: #### OHAmrik, IOCAL ####[facility] Fyhkrqtcivgc6430 [place] [address] Glucose mass mtsv734 mg/eGVwsm15-55Unenx [facility] HospitalComment on above:Performed By: #### OHAmrik, IOCAL ####[facility] Dxmpmzxpeqbr2162 [place] [address] Sodium molar zery676 mmol/ERrl672-225YdeojBethesda North HospitalComment on above:Performed By: #### OHAmrik, IOCAL ####[facility] Psghocujbrgt1769 [place] [address] Urea nitrogen mass conc12 mg/dLNormal6-20[facility] HospitalComment on above:Performed By: #### OHP, IOCAL ####[facility] Elwchmuwuwao3724 [place] [address] BUN/CRE RatioNOT REPORTEDNormal9-20[facility] HospitalComment on above:Performed By: #### OHP, IOCAL ####[facility] Pdiiiookimme1493 [place] [address] Staging:NOT REPORTEDNormalBethesda North Hospital Comment on above:Performed By: #### OHAmrik, IOCAL ####[facility] Jafghdierdbw3455 [place], [place] [phone] 44-11-9813Plfbjqlqnlh distribution width Auto Ratio (RBC)15.8 %High11.8-14.4[facility] North HospitalComment on above:Performed By: #### OHAmrik, IOCAL ####[facility] [address] [phone] Auto Volume Fraction (Bld)30.8 %Low40.7-50.3 [facility] HospitalComment on above:Performed By: #### OHAmrik, IOCAL ####[facility] [address] [place] [address] Hemoglobin mass conc (Bld)10.2 g/dLLow13.0-17.0[facility] HospitalComment on above:Performed By: #### OHAmrik, IOCAL ####[address] [address] MCH Auto Entitic mass (RBC)30.4 foBnkdlf75.2-33.5[facility] HospitalComment on above:Performed By: #### OHAmrik, IOCAL ####[facility] [address] [address] MCHC Auto mass conc (RBC)33.1 g/qOCipbmn43.4-34.8[facility] HospitalComment on above: Performed By: #### OHP, IOCAL ####[facility] Mrwqzfscnibz0390 [place] [address] MCV Auto Entitic volume (RBC)91.9 eRUstyqo77.6-102.9[facility] HospitalComment on above:Performed By: #### OHP, IOCAL ####[facility] [address]mmkbilpxhq[address] [place] [address] NRBC Automated0.0 per 100 WBCNormal0.0[facility] HospitalComment on above:Performed By: #### CALLY, IOCAL ####Fil[facility]a Zvfpxyjbwwwj2872 [place] [address] Platelet mean volume Auto Entitic volume (Bld)11.5 fLNormal 8.1-13.5[facility] HospitalComment on above:Performed By: #### CALLY, IOCAL ####Fil[facility] Blptpqgslqre4208 [place] [address] Platelets Auto #/vol (Bld)156 10*3/tCRzvkze718-228IdbuuBethesda North HospitalComment on above:Performed By: #### CALLY, IOCAL ####[facility] Wutyljdrzegk8553 [place] [address] RBC Auto #/vol (Bld)3.35 10*6/uLLow 4.21-5.77[facility] HospitalComment on above:Performed By: #### OHAmrik, IOCAL ####Fil[facility]a Sbzgjmzxclgk2084 [place] [address] WBC Auto #/vol (Bld)15.6 10*3/uLHigh3.5-11.3MRiverside Community HospitalComment on above:Performed By: #### CALLY, IOCAL ####[facility] Wzitxfbzfpic0376 [place] [address] Calcium, Ionicon 52-19-4188Ixgbqhc mass conc1.06 mmol/LLow1.13-1.33[facility] HospitalComment on above:Performed By: #### OHP, IOCAL ####Sarithay Usxlcnokkiwr0672 [place] [address] K (Potassium)on 40-18-2256Vxctjfpun molar conc3.0 mmol/LLow 3.7-5.3MRiverside Community HospitalComment on above:Performed By: #### OHP, IOCAL ####Sarithay Fqtkqfhzhoib2962 [place] [address] Potassium molar conc3.0 mmol/LLow3.7-5.3[facility] Community HospitalComment on above:Performed By: #### OHAmrik, IOCAL ####Sarithay Kpfeapnnabmy9287 [place], [place] [phone] 80-09-9399Icaghycmi mass conc1.9 mg/dLNormal1.6-2.6[facility] HospitalComment on above:Performed By: #### OHAmrik, IOCAL ####[facility] Gllrnajuxijw0268 [place] [address] Phosphorus, Inorg.on 97-49-2722Xevkfhckoa, Inorg.2.3 mg/dLLow 2.5-4.5MerKindred HospitalComment on above:Performed By: #### CALLY, IOCAL ####Filomena Mdyysmkjydli2647 [place] [address] Vancomycin Troughon 35-33-9115Nodsqaubds Trough8.8 ug/mLLow10.0-20.0MerKindred HospitalComment on above:Result Comment: Higher trough serum vancomycin concentrations of 15-20 ug/mL are recommended for complicated infections such as bacteremia, endocarditis, osteomyelitis, meningitis, and hospital acquired pneumonia.Performed By: #### OHAmrik, IOCAL ####[facility] Fqhuretaldow4029 [place], [place] [phone] last dose,NOT REPORTEDNormalMerKindred HospitalComment on above:Performed By: #### OHP, IOCAL ####Sarithay Lnopnniqsxuu9786 [place], [place] [phone] amount,NOT REPORTEDNormalBethesda North Hospital Comment on above:Performed By: #### OHP, IOCAL ####[facility] Wgrsmzlunvyf5504 [place], [place] [phone] last dose,NOT REPORTEDNormalMerKindred HospitalComment on above:Performed By: #### OHP, IOCAL ####[facility] Uciwaemxingu3591 [place], [place] 8[address]808 XR CHEST PORTABLEon [id number] CHEST PORTABLEEXAMINATION:SINGLE XRAY VIEW OF THE CHEST01/24/2018 [...] difficult to exclude.Continued imaging follow-up is recommended.Interpreted by:NDAEGE Wrightigned by:Cassie Guzmán MD01/24/inal resultNormalMercy Sur[facility] Valley Community HospitalBasic Metabolic Profon 13-41-8073Fmrjllycit mass conc0.47 mg/dLLow0.70-1.20MerKindred HospitalComment on above:Result Comment: ICTERIC SPECIMENPerformed By: #### OHP, IOCAL ####[facility] Knqhpjklqetf8467 [place] [address] GFR, Amer>60 Normal>60MerKindred HospitalComment on above:Performed By: #### OHP, IOCAL ####[facility] Vjsbfcfcjkcy8781 [place] [address] GFR,non Amer>60Normal>60MerKindred HospitalComment on above:Performed By: #### OHP, IOCAL ####[facility] Qkfnwnbphouq9127 [place] [address] (cont.)NormalBethesda North HospitalComment on above:Result Comment: Average GFR for 50-59 years old: 93 mL/min/1.73sq mChronic Kidney Disease: <60 mL/min/1.73sq mKidney failure: <15 mL/min/1.73sq meGFR calculated using average adult body mass. Additional eGFR calculator available at:http://www.[place] [facility]/multiple_crcl_2012.htmPerformed By: #### CALLY IOCAL ####Sarithaerine Whxeuzrhywhr3934 [place] [address] Anion gap 3 molar conc11 mmol/LNormal9-17[facility] HospitalComment on above: Performed By: #### CALLY IOCAL ####Filomena Hrpkswjiuspc2732 [place] [address] Calcium mass conc8.3 mg/dLLow8.6-10.4[facility] HospitalComment on above:Performed By: #### CALLY IOCAL ####Sarithay Obfxwoexjmyi4858 [place] [address] Chloride molar conc98 mmol/ZQtafpi60-538 [facility] HospitalComment on above:Performed By: #### CALLY, IOCAL ####Sarithay Gnbbtmgelugf8484 [place] [address] WQ9 molar conc 25 mmol/BKzqkko55-99AigfvBethesda North HospitalComment on above:Performed By: #### OHAmrik, IOCAL ####Sarithay Fmkdlzlohatr0454 [place] [address] Glucose mass lllp586 mg/dGJkbb17-71AsjyoRiverside Community HospitalComment on above:Performed By: #### OHP, IOCAL ####Sartihay Urveskjlhcbz0964 [place] [address] Potassium molar conc3.2 mmol/LLow3.7-5.3 [facility] HospitalComment on above:Performed By: #### CALLY, IOCAL ####Filomena Bshckmkhufwz3774 [place] [address] Sodium molar uidx464 mmol/CQfa488-991BanavBethesda North HospitalComment on above: Performed By: #### CALLY, IOCAL ####[facility] [address] [place] [address] Urea nitrogen mass conc9 mg/dLNormal6-20[facility] HospitalComment on above:Performed By: #### CALLY, IOCAL ####[facility] Yviptwfmwnio[address] [place] [address] BUN/CRE RatioNOT REPORTEDNormal9-20[facility] HospitalComment on above:Performed By: #### CALLY, IOCAL ####Filomena [address] [place] [address] Staging:NOT REPORTEDNormalBethesda North Hospital Comment on above:Performed By: #### CALLY, IOCAL ####[facility] Znjb[address]cf[address] [place] [address] Brain Natri. Peptideon 78-03-7663Bfpvfvyqnyl peptide B mass conc (Bld)NormalBethesda North HospitalComment on above: Result Comment: Pro-BNP Reference Range:Rule Out: <300[place]: Age <50 300-450 Age 50-75 300-900 Age >75 300-1800Usually represents mild to moderate HF but other cardiopulmonary causes cannot be ruled out.Rule In: Age <50 >450 Age 50-75 >900 Age >75 >1800Performed By: #### CALLY, IOCAL ####Filomena [address] [address] Natriuretic peptide B mass conc (Bld) 269[address] pg/mLHigh<300Bet[facility] North HospitalComment on above:Result Comment: Pro-BNP results cannot be compared to BNP results.Performed By: #### OHP, IOCAL ####[facility] [address]cojp[address]rfl[address] [place] [address] CBC on 01-88-5553Pyldnekvxnd distribution width Auto Ratio (RBC)15.6 %High11.8-14.4 [facility] HospitalComment on above:Performed By: #### OHP, IOCAL ####[address] [address] Hematocrit Auto Volume Fraction (Bld)32.4 %Low40.7-50.3MRiverside Community Hospital Comment on above:Performed By: #### OHP, IOCAL ####[facility] [address]df[address] [place] [address] Hemoglobin mass conc (Bld)11.1 g/dLLow13.0-17.0 [facility] HospitalComment on above:Performed By: #### OHP, IOCAL ####[facility] [address] [place] [address] MCH Auto Entitic mass (RBC)31.8 leLgiprf30.2-33.5[facility] HospitalComment on above:Performed By: #### OHP, IOCAL ####[facility] [place] [address] MCHC Auto mass conc (RBC)34.3 g/dLNormal 28.4-34.8[facility] HospitalComment on above:Performed By: #### OHP, IOCAL ####[address] [address] MCV Auto Entitic volume (RBC)92.8 vIFpvpaq59.6-102.9[facility] HospitalComment on above:Performed By: #### OHP, IOCAL ####[facility] [address] [place] [address] NRBC Automated0.0 per 100 WBCNormal0.0 [facility] HospitalComment on above:Performed By: #### OHAmrik, IOCAL ####[facility] RojasEqvdyoluuxsi[address] [place] [address] Platelets Auto #/vol (Bld)See Reflexed IPF [id number] North Hospital Comment on above:Performed By: #### OHP, IOCAL ####[facility] RojasRncqehyhlghh[address] [place], [place] [address] RBC Auto #/vol (Bld)3.49 10*6/uLLow4.21-5.77 [facility] HospitalComment on above:Performed By: #### OHP, IOCAL ####[facility] Ikexepevewsc5131 [place] [address] WBC Auto #/vol (Bld)23.6 10*3/uLHigh3.5-11.3MRiverside Community HospitalComment on above: Performed By: #### OHP, IOCAL ####[facility] Yxprvsfxsazp2678 [place] [address] Platelet mean volume Auto Entitic volume (Bld)NOT REPORTED Normal8.1-13.5[facility] North HospitalComment on above:Performed By: #### OHP, IOCAL ####[address] [address] [address] LUMBAR SPINE WO CONTRASTon 88-39-5818PS LUMBAR SPINE WO CONTRASTEXAMINATION:CT OF THE THORACIC [...] onprevious CTA.Interpreted by:NADEGE Lancasterigned by:Hebert Best MD01/22/18inal resultNormalBethesda North HospitalCT THORACIC SPINE WO CONTRASTon 22-49-4452HU THORACIC SPINE WO CONTRASTEXAMINATION:CT OF THE THORACIC [...] onprevious CTA.Interpreted by:NADEGE Lancasterigned by:Hebert Best MD01/22/18Final resultNormalMerKindred HospitalCalcium, Ionicon 08-42-7125Movlizx mass conc1.09 mmol/LLow1.13-1.33[facility] HospitalComment on above:Performed By: #### OHP, IOCAL ####M2M [employer] [place], [place] [address] Calcium mass conc1.08 mmol/LLow1.13-1.33 [facility] HospitalComment on above:Performed By: #### OHP, IOCAL ####seoreseller.comy Pulneuimsjnk[address] [place], [place] [address] Magnesiumon 12-14-4624Joivjbmcw mass conc2.0 mg/dLNormal1.6-2.6[facility] HospitalComment on above:Performed By: #### OHP, IOCAL ####M2M Solution[address] [place], [place] [phone] mass conc2.0 mg/dLNormal1.6-2.6 [facility] HospitalComment on above:Performed By: #### OHP, IOCAL ####[facility] Jpkdbdnpqhsy8586 [place] [address] PLT, Immature Fract.on 70-83-8760Wciswvyu, Fluoresc.134 k/pHPxt495-807JtgvnKindred HospitalComment on above:Performed By: #### OHP, IOCAL ####[facility] Pwexujpithhy4838 [place] [address] PLT, Immature Fract.6.9 %Normal1.1-10.3MRiverside Community HospitalComment on above:Performed By: #### OHP, IOCAL ####[facility] Tdurjligdzxu0698 [place] [address] Vancomycin Troughon 43-81-1731Jlzwmkuhnw Gszzvg75.6 ug/mL Hpgugk39.0-20.0[facility] North HospitalComment on above:Result Comment: Higher trough serum vancomycin concentrations of 15-20 ug/mL are recommended for complicated infections such as bacteremia, endocarditis, osteomyelitis, meningitis, and hospital acquired pneumonia.Performed By: #### OHP, IOCAL ####[facility] Ywpoxknokwdo6255 [place] [address] Date last dose,NOT REPORTEDNormalBethesda North HospitalComment on above: Performed By: #### OHP, IOCAL ####[facility] Qyiphynkexox9988 [place] [address] Dose amount,NOT REPORTEDNormLima City Hospital Comment on above:Performed By: #### OHP, IOCAL ####[facility] Dkbuvwiyxpff1693 [place] [address] Time last dose,NOT REPORTEDNormalBethesda North HospitalComment on above:Performed By: #### OHP, IOCAL ####[facility] Eqvgytperseo1587 [place] [address] Vitamin D 25 OHon 51-65-0717Ludyrmp D 25 OH10.5 ng/mLLow30.0-100.0[facility] Comment on above:Result Comment: Reference Range:Vitamin D status Range Deficiency <20 ng/mL Mild Deficiency 20-30 ng/mL Sufficiency 30-100 ng/mL Toxicity >100 ng/mLPerformed By: #### OHP, IOCAL ####[facility] Llruyfzbqnkw3675 [place] [address] XR CHEST PORTABLEon 42-69-5982CS CHEST PORTABLEEXAMINATION:SINGLE XRAY VIEW OF THE CHEST01/23/2018 [...] chronic interst itialchange.Interpreted by:NADEGE Wrightigned by:Cassie Guzmán MD01/23/inal resultNormalBethesda North HospitalArterial Blood Gases on 36-10-7879Lkrbg TestINFORMATION NOT PROVIDEDNormalBethesda North HospitalComment on above:Performed By: #### OHP, IOCAL ####[facility] Hrwrlyakiyxd4219 [place] [address] Body Temp.37.0NormalBethesda North HospitalComment on above:Performed By: #### OHP, IOCAL ####[facility] Uwwukhowmvnf2051 [place] [address] Carboxy Hgb2.7 %Normal 0-5[facility] North HospitalComment on above:Result Comment: Reference Range:Non-Smokers 0-2%Average Smoker 2-4%Heavy Smoker <10%Performed By: #### OHP, IOCAL ####[facility] Ihmvtgqqacte4872 [place] [address] DFI542%NormalBethesda North HospitalComment on above:Performed By: #### OHP, IOCAL ####[facility] Mnvvicehbrze6384 [place] [address] HCO3 molar conc (Bld)28.2 mmol/XNcgf29-61MuotqBethesda North HospitalComment on above:Performed By: #### OHP, IOCAL ####[facility] Wgwbhmxpudiv9536 [place] [address] Oxygen ppres (BldA)81.3 mm[Hg]Ifspip52-06YbjdxBethesda North HospitalComment on above:Performed By: #### OHP, IOCAL ####[facility] Dabbsfkvakfs6319 [place] [address] Oxygen saturation in Blood95.9 %Ghvaki42-174HrfhvBethesda North HospitalComment on above:Performed By: #### OHP, IOCAL ####[facility] Vjdpmmyykgbl6918 [place] [address] oEM191.5 qqGyAudqvb77-33EcqgdBethesda North Hospital Comment on above:Performed By: #### OHP, IOCAL ####[facility] Opuvsnzjtbfo3233 [place] [address] pH (Bld)7.447 [pH]Normal7.350-7.450[facility] North HospitalComment on above:Performed By: #### OHP, IOCAL ####[facility] Rrrimarjawqq5624 [place] [address] Positive Base Excess4.2 mmol/LHigh0.0-2.0[facility] HospitalComment on above:Performed By: #### OHP, IOCAL ####[facility] Bcrhzsuxxyfn8958 [place] [address] MethemoglobinNOT REPORTEDNormal0.0-1.5[facility] HospitalComment on above:Performed By: #### OHP, IOCAL ####[facility] Smavqvefouow4614 [place] [address] ModeNOT REPORTEDNormal [facility] HospitalComment on above:Performed By: #### OHP, IOCAL ####[facility] Zmqixumpuakl1018 [place] [address] Negative Base ExcessNOT REPORTEDNormal0.0-2.0[facility] HospitalComment on above: Performed By: #### OHP, IOCAL ####[facility] [address] [place] [address] Notification TimeNOT REPORTEDNormalBethesda North HospitalComment on above:Performed By: #### OHP, IOCAL ####[facility] Sosdhkgnhwzw1301 [place] [address] Notification:NOT REPORTEDNormalBethesda North HospitalComment on above:Performed By: #### OHP, IOCAL ####[facility] Hidfamgdujup2664 [place] [address] O2 Device/Flow/%NOT REPORTEDNormalBethesda North HospitalComment on above:Performed By: #### OHP, IOCAL ####[facility] Trwzdczsawmk8122 [place] [address] OxyhemoglobinNOT SKIKBPGHWjflav03.0-98.0[facility] HospitalComment on above:Performed By: #### OHP, IOCAL ####[facility] Kwrkfurnwdkk7927 [place] [address] wLC1 Adj'd for TempNOT GBGFWZVQDovidb93-52PoijmKindred HospitalComment on above:Performed By: #### OHP, IOCAL ####[facility] Tvmpbdaddegz3998 [place] [address] PEEP/CPAPNOT REPORTEDNormalBethesda North Hospital Comment on above:Performed By: #### OHP, IOCAL ####[facility] Sohqskgjqnfb9255 [place] [address] pH Adjst'd for Temp.NOT REPORTEDNormal 7.350-7.450MerKindred HospitalComment on above:Performed By: #### OHP, IOCAL ####[facility] Fdqhkvwnjkju4730 [place] [address] lS4 Adjst'd for TempNOT JCJWFMSTXgsawv36-00VloxbBethesda North HospitalComment on above:Performed By: #### OHP, IOCAL ####[facility] Rrsbedjvovnq7229 [place] [address] PSVNOT REPORTEDNormalBethesda North HospitalComment on above:Performed By: #### OHP, IOCAL ####[facility] Lqpzmmjpqftz0473 [place] [address] Pt. PositionNOT REPORTEDNormalBethesda North HospitalComment on above:Performed By: #### OHP, IOCAL ####[facility] Zyrbmzdzdhjo0306 [place] [address] Set RateNOT REPORTED NormalBethesda North HospitalComment on above:Performed By: #### OHP, IOCAL ####[facility] Aeyeqsyleokb3037 [place], [place] [phone] DrawnNOT REPORTEDNoalBethesda North HospitalComment on above: Performed By: #### OHP, IOCAL ####[facility] Pebxcnifvpew0844 [place], [place] [phone] for RespiratoryNOT REPORTEDNormalBethesda North HospitalComment on above:Performed By: #### OHP, IOCAL ####[facility] Trffpvuigaeh3724 [place], [place] [phone] HbNOT REPORTED Mofnya46.0-16.0[facility] HospitalComment on above:Performed By: #### OHP, IOCAL ####[facility] Tmtyancqtayx9164 [place], [place] [phone] RateNOT REPORTEDNoalBethesda North Hospital Comment on above:Performed By: #### OHP, IOCAL ####[facility] Bgkhvwlywkwt8649 [place], [place] [phone] REPORTEDClermont County HospitalComment on above:Performed By: #### OHP, IOCAL ####[facility] Vfnaudgoyfnw6910 [place], [place] [phone] Metab w/rfx MGon 01-22-2018(cont.) NormalBethesda North HospitalComment on above:Result Comment: Average GFR for 50-59 years old: 93 mL/min/1.73sq mChronic Kidney Disease: <60 mL /min/1.73sq mKidney failure: <15 mL/min/1.73sq meGFR calculated using average adult body mass. Additional eGFR calculator available at:http://www.Hiddenbed.Medical Simulation/multiple_crcl_2012.htmPerformed By: #### OHP, IOCAL ####[facility] Ryffeynpciht2454 [place], [place] [phone] gap 3 molar conc9 mmol/LNormal9-17[facility] HospitalComment on above: Performed By: #### OHAmrik, IOCAL ####[facility] Mocxdnkjfagk9272 [place] [address] Calcium mass conc8.0 mg/dLLow8.6-10.4[facility] HospitalComment on above:Performed By: #### OHAmrik, IOCAL ####[facility] Gffgfufaxpkd1918 [place] [address] Chloride molar conc99 mmol/NFtwvxg70-310 [facility] HospitalComment on above:Performed By: #### OHAmrik, IOCAL ####[facility] Iojmmiqredho6743 [place] [address] NF0 molar conc 28 mmol/OEezmcl27-02IkjluBethesda North HospitalComment on above:Performed By: #### OHAmrik, IOCAL ####[facility] Inknoopqtswa9047 [place] [address] Creatinine mass conc0.56 mg/dLLow0.70-1.20[facility] HospitalComment on above:Performed By: #### OHAmrik, IOCAL ####[facility] Pvjtgikkdmlz2776 [place] [address] GFR, Amer>60 Normal>60[facility] HospitalComment on above:Performed By: #### OHP, IOCAL ####[facility] Cbqcntwgcmxe8804 [place] [address] GFR,non Amer>60Normal>60[facility] HospitalComment on above:Performed By: #### OHP, IOCAL ####[facility] Fgfgqxumaoww0275 [place] [address] Glucose mass vzls042 mg/jEAikv95-61MhzxpRiverside Community HospitalComment on above:Performed By: #### OHP, IOCAL ####[facility] Fqrqkipwgrmo3575 [place], [place] [phone] molar conc3.8 mmol/LNormal3.7-5.3[facility] HospitalComment on above:Performed By: #### OHAmrik, IOCAL ####[facility] Ggidzwpuwmrf8363 [place], [place] [phone] molar qwri923 mmol/BYwzhcm056-475ArhubBethesda North HospitalComment on above:Performed By: #### OHAmrik, IOCAL ####[facility] Yybwvjufvhuy6450 [place], [place] [phone] nitrogen mass conc9 mg/dLNormal6-20[facility] HospitalComment on above:Performed By: #### CALLY, IOCAL ####[facility] Pigtkfiujiup4389 [place], [place] [phone])[phone]/CRE RatioNOT REPORTEDNormal9-20[facility] HospitalComment on above:Performed By: #### OHAmrik, IOCAL ####[facility] Vfmxgssiydea6389 [place], [place] [phone]:NOT REPORTEDNormalBethesda North HospitalComment on above:Performed By: #### CALLY, IOCAL ####[facility] Jeoqhpjeyffd1499 [place], [place] [phone] Metabolic Profon 01-22-2018(cont.)NormalBethesda North HospitalComment on above:Result Comment: Average GFR for 50-59 years old: 93 mL/min/1.73sq mChronic Kidney Disease: <60 mL/min/1.73sq mKidney failure: <15 mL/min/1.73sq meGFR calculated using average adult body mass. Additional eGFR calculator available at:http://www.Hiddenbed.Medical Simulation/multiple_crcl_2012.htmPerformed By: #### CALLY, IOCAL ####[facility] Gvoglgvuoqgy1323 [place] [address] Anion gap 3 molar conc11 mmol/LNormal9-17[facility] HospitalComment on above: Performed By: #### OHAmrik, IOCAL ####[facility] Opcrgxqjhilv0413 [place] [address] Calcium mass conc8.1 mg/dLLow8.6-10.4[facility] HospitalComment on above:Performed By: #### OHAmrik, IOCAL ####[facility] Glhdymskwsle6180 [place] [address] Chloride molar conc99 mmol/UUkbnsj38-271 [facility] HospitalComment on above:Performed By: #### OHAmrik, IOCAL ####[facility] Swurcejxclpz6679 [place] [address] KO6 molar conc 27 mmol/IIqnjwb18-03RmtslBethesda North HospitalComment on above:Performed By: #### OHAmrik, IOCAL ####[facility] Ctjbfbmgyqxe1387 [place] [address] Creatinine mass conc0.58 mg/dLLow0.70-1.20[facility] HospitalComment on above:Performed By: #### OHAmrik, IOCAL ####[facility] Ekuntwtbixza6170 [place] [address] GFR, Amer>60 Normal>60[facility] HospitalComment on above:Performed By: #### OHP, IOCAL ####[facility] Gaewnwejdfwz0766 [place] [address] GFR,non Amer>60Normal>60[facility] HospitalComment on above:Performed By: #### OHP, IOCAL ####[facility] Jkybgnqbqxyo1477 [place] [address] Glucose mass conc87 mg/nNHdjqvr88-66TwrtwRiverside Community HospitalComment on above:Performed By: #### OHP, IOCAL ####[facility] Hwkwaiflscku7840 [place], [place] [phone] molar conc3.6 mmol/LLow3.7-5.3[facility] HospitalComment on above:Performed By: #### CALLY IOCAL ####[facility] Pxxjzvclxpug4798 [place] [address] Sodium molar syhf806 mmol/SNmyxpk025-322LckrlBethesda North HospitalComment on above:Performed By: #### CALLY IOCAL ####[facility] Iqjxivstdaxd1255 [place] [address] Urea nitrogen mass conc6 mg/dLNormal6-20[facility] HospitalComment on above:Performed By: #### CALLY IOCAL ####[facility] Eoovxcxmpyrx4466 [place], [place] [phone] Natri. Peptideon 50-63-2859Haeavslkwev peptide B mass conc (Bld)NormalBethesda North HospitalComment on above:Result Comment: Pro-BNP Reference Range:Rule Out: <300[place] Zone: Age <50 300-450 Age 50-75 300- 900 Age >75 300-1800Usually represents mild to moderate HF but other cardiopulmonary causes cannot be ruled out.Rule In: Age <50 >450 Age 50-75 >900 Age >75 >1800Performed By: #### CALLY IOCAL ####[facility] Cmatvjmhevwd6469 [place] [address] Natriuretic peptide B mass conc (Bld)59681 pg/mL High<300Bet[facility] North HospitalComment on above:Result Comment: Pro-BNP results cannot be compared to BNP results.Performed By: #### CALLY, IOCAL ####[facility] Ecjqecjhqkjj9948 [place], [place] [phone] 79-65-9367Ypkcsltoqoe distribution width Auto Ratio (RBC)15.8 %High11.8-14.4 [facility] HospitalComment on above:Performed By: #### OHAmrik, IOCAL ####[facility] Huspppufelyk9057 [place] [address] Hematocrit Auto Volume Fraction (Bld)32.6 %Low40.7-50.3MRiverside Community Hospital Comment on above:Performed By: #### OHP, IOCAL ####[facility] Pekuqrqybrvr0766 [place] [phone] mass conc (Bld)10.7 g/dLLow13.0-17.0 [facility] HospitalComment on above:Performed By: #### OHArmik, IOCAL ####[address] [address] MCH Auto Entitic mass (RBC)31.4 luElzsdk72.2-33.5[facility] HospitalComment on above:Performed By: #### OHP, IOCAL ####[facility] [address]rlvyqeakmit[address] [place] [address] MCHC Auto mass conc (RBC)32.8 g/dLNormal 28.4-34.8[facility] HospitalComment on above:Performed By: #### OHP, IOCAL ####[facility] [address] [address] MCV Auto Entitic volume (RBC)95.6 cXBngpwl54.6-102.9[facility] HospitalComment on above:Performed By: #### OHP, IOCAL ####[facility] Hzcuhfznbdiw[address] [place] [phone] Automated0.0 per 100 WBCNormal0.0 [facility] HospitalComment on above:Performed By: #### OHP, IOCAL ####[address] [address] Platelets Auto #/vol (Bld)See Reflexed IPF ZzprmxVhsjjv835-901WnoynBethesda North Hospital Comment on above:Performed By: #### CALLY IOCAL ####[facility] Semgxotmcwsz[address] [place] [address] RBC Auto #/vol (Bld)3.41 10*6/uLLow4.21-5.77 [facility] HospitalComment on above:Performed By: #### CALLY, IOCAL ####[facility] Qbvndippkyog[address] [place] [address] WBC Auto #/vol (Bld)28.0 10*3/uLHigh3.5-11.3MRiverside Community HospitalComment on above: Performed By: #### CALLY IOCAL ####[address] [address] CBC with Diffon 81-60-5840Jkc. Basophil0.00 k/uLNormal0.0-0.2 [facility] HospitalComment on above:Performed By: #### CALLY IOCAL ####[address] [address] Abs.Imm.Granulocyte0.29 k/uLNormal0.00-0.30[facility] Comment on above:Performed By: #### CALLY IOCAL ####[address] [address] Abs.Neutrophil (Seg)25.64 k/uLHigh1.8-7.7[facility] HospitalComment on above:Performed By: #### CALLY, IOCAL ####[address] [address] Basophils/100 WBC Auto (Bld)0 %Normal0-2MRiverside Community HospitalComment on above: Performed By: #### CALLY, IOCAL ####[address] [address] Eosinophils Auto #/vol (Bld)0.00 10*3/uLNormal0.0-0.4[facility] Hospitalcy [facility] HospitalComment on above:Performed By: #### OHAmrik, IOCAL ####[facility] [address] [place] [address] Eosinophils/100 WBC Auto (Bld)0 %Low1-4[facility] HospitalComment on above:Performed By: #### OHAmrik, IOCAL ####[facility] Qiutvxydhqcc[address] [place] [address] Immature granulocytes #/vol (Bld)1 %Tyqq6KdwkcBethesda North HospitalComment on above:Performed By: #### OHAmrik, IOCAL ####[facility] [address] [address] Lymphocytes Auto #/vol (Bld)2.00 10*3/uLNormal1.0-4.8[facility] HospitalComment on above: Performed By: #### OHAmrik, IOCAL ####[facility] W[address]mooli[address] [place] [address] Lymphocytes/100 WBC Auto (Bld)7 %Uda02-97JfatwBethesda North HospitalComment on above:Performed By: #### OHP, IOCAL ####[facility] Gj[address]ug[address] [place] [address] Monocytes Auto #/vol (Bld)0.57 10*3/uLNormal0.1-0.8[facility] HospitalComment on above: Performed By: #### OHP, IOCAL ####[facility] Kclhgqebehgt5952 [place] [address] Monocytes/100 WBC Auto (Bld)2 %Normal1-7[facility] HospitalComment on above:Performed By: #### OHP, IOCAL ####[facility] Keimfneqllyh1449 [place] [address] Morphology Interp Eduard (Bld)INCREASED BANDS PRESENTNormalBethesda North HospitalComment on above:Result Comment: ANISOCYTOSIS PRESENTPerformed By: #### CALLY, IOCAL ####[facility] Dznsqlxfazis6999 [place] [address] Neutrophil (Seg)90 %Ufrf16-73TlcxeBethesda North HospitalComment on above:Performed By: #### OHAmrik, IOCAL ####[facility] [address] [place] [address] NRBC Automated0.0 per 100 WBCNormal0.0[facility] HospitalComment on above:Performed By: #### OHAmrik, IOCAL ####[address] [address] WBC Auto #/vol (Bld)28.5 10*3/uLHigh3.5-11.3MRiverside Community HospitalComment on above:Performed By: #### OHAmrik, IOCAL ####[facility] [address] [place] [address] Erythrocyte distribution width Auto Ratio (RBC)15.6 %High 11.8-14.4[facility] HospitalComment on above:Performed By: #### OHAmrik, IOCAL ####[facility] [address]comwovsa[address] [place] [address] Hematocrit Auto Volume Fraction (Bld)31.4 %Low40.7-50.3MRiverside Community HospitalComment on above:Performed By: #### OHP, IOCAL ####[facility] Jkxylvuvbiwy9275 [place] [address] Hemoglobin mass conc (Bld)10.3 g/dLLow 13.0-17.0[facility] HospitalComment on above:Performed By: #### OHP, IOCAL ####[facility] Sspsjwneelko0597 [place] [address] MCH Auto Entitic mass (RBC)30.9 thXnsjzi45.2-33.5[facility] Comment on above:Performed By: #### OHP, IOCAL ####[facility] Fpksyknvgnrn0001 [place] [address] MCHC Auto mass conc (RBC)32.8 g/dLNormal 28.4-34.8[facility] HospitalComment on above:Performed By: #### OHP, IOCAL ####[facility] Wndlfqlvpqoy1774 [place] [address] MCV Auto Entitic volume (RBC)94.3 wVKnepyw65.6-102.9[facility] HospitalComment on above:Performed By: #### OHAmrik, IOCAL ####[facility] [address]blzpxccg[address] [place] [address] Platelets Auto #/vol (Bld)See Reflexed IPF SblqimIfqlpt213-948NvdqhBethesda North HospitalComment on above: Performed By: #### OHP, IOCAL ####[facility] Ciiitcneoned8626 [place] [address] RBC Auto #/vol (Bld)3.33 10*6/uLLow4.21-5.77[facility] HospitalComment on above:Performed By: #### OHP, IOCAL ####[facility] Rlsfffqrqhcv4048 [place] [address] Auto Diff PerformedNOT REPORTEDNormalBethesda North HospitalComment on above:Performed By: #### OHP, IOCAL ####[facility] Ytaqahxelapa4942 [place] [address] Platelet mean volume Auto Entitic volume (Bld)NOT REPORTED Normal8.1-13.5[facility] HospitalComment on above:Performed By: #### OHP, IOCAL ####[facility] Ddxddnjqralc7453 [place], [place] [phone] Auto #/vol (Bld)NOT REPORTEDClermont County HospitalComment on above:Performed By: #### OHP, IOCAL ####[facility] Ycdicbsfolom4686 [place], [place] [phone] morphology finding Nom (Bld)NOT REPORTEDNoMercy Health Fairfield HospitalComment on above: Performed By: #### OHP, IOCAL ####[facility] Trrzovtkccwt1218 [place], [place] [phone] MorphologyNOT REPORTEDNoMercy Health Fairfield HospitalComment on above:Performed By: #### OHP, IOCAL ####[facility] Vkjsptommidc2100 [place] [address] MRI LUMBAR SPINE WO CONTRASTon 01-22-2018 MRI [...] T2 hyperintensity involves the L1 vertebral body. B81qlfmycq process acute fracture. Remaining vertebrae maintain normal [...] facet arthrosis, mildcentral spinal canal stenosis and vyew-ue-legymypc bilateral foraminalstenosis.IMPRESSION: L1 acute compression fracture, 20% anterior height loss. No bonyretropulsion or acute neural impingement.T12 acute spinous process fracture.Interpreted by:NADEGE Romeroigned by:Ramakrishna Santana MD01/22/18 Recipients:Rubina Arreaga DO - In Anant (authorizing provider)Final resultNormalBethesda North Hospital Magnesiumon 23-92-7094Nowncxmsn mass conc2.0 mg/dLNormal1.6-2.6[facility] HospitalComment on above:Performed By: #### OHP, IOCAL ####[facility] [address] [place] [address] [phone], Immature Fract.on 99-61-8670Uoayebju, Fluoresc.128 k/fCAzj791-441RivzeBethesda North Hospital Comment on above:Result Comment: ORDERED BY LABPerformed By: #### OHP, IOCAL ####[facility] Kjhzwkjevokg6433 [place], [place] 11718419)[phone], Immature Fract.5.8 %Normal1.1-10.3[facility] HospitalComment on above:Result Comment: ORDERED BY LABPerformed By: #### OHP, IOCAL ####[facility] Kznmknooafpq1810 [place] [address] Platelet, Fluoresc.132 k/jWJxj969-480 [facility] HospitalComment on above:Performed By: #### OHP, IOCAL ####[facility] Xlemhajdvutu8490 [place] [address] PLT, Immature Fract.6.2 %Normal1.1-10.3Mohio[facility] gro[facility]ist hospitaly [facility] HospitalComment on above: Performed By: #### OHP, IOCAL ####[facility] Wirwxtraxssd1212 [place] [address] Phosphorus, Inorg.on 34-47-4611Hnhmdtwijh, Inorg.2.2 mg/dLLow 2.5-4.5[facility] HospitalComment on above:Performed By: #### OHP, IOCAL ####[facility] Eyxisfnbnzuj1600 [place] [address] Phosphorus, Inorg.2.5 mg/dLNormal2.5-4.5[facility] HospitalComment on above:Result Comment: ADDED ONPerformed By: #### OHP, IOCAL ####[facility] Dyodprfxulsr5504 [place] [address] XR CHEST PORTABLEon 78-28-0790SG CHEST PORTABLEEXAMINATION:SINGLE XRAY VIEW OF THE CHEST01/22/2018 [...] recommended.Interpreted by:NADEGE Wrightigned by:Cassie Guzmán MD01/22/18inal result NormalBethesda North HospitalBasic Metabolic Profon 01-21-2018(cont.) NormalBethesda North HospitalComment on above:Result Comment: Average GFR for 50-59 years old: 93 mL/min/1.73sq mChronic Kidney Disease: <60 mL /min/1.73sq mKidney failure: <15 mL/min/1.73sq meGFR calculated using average adult body mass. Additional eGFR calculator available at:http://www.[employer].Medical Simulation/multiple_crcl_2012.htmPerformed By: #### BMP, BNP ####[facility] Eiufm[address] [place] [address] Performed By: #### ERTPF, CONNER, LIP, LIVP, TEGCR ####[id number] [place] [address] Anion gap 3 molar conc9 mmol/LNormal9-17[facility] HospitalComment on above:Performed By: #### BMP, BNP ####[facility] [address] [place] [id number] Calcium mass conc8.1 mg/dLLow8.6-10.4[facility] HospitalComment on above:Performed By: #### BMP, BNP ####[facility] [address] [place] [address] Performed By: #### ERTPF, CONNER, LIP, LIVP, TEGCR ####[facility] [address] [place] [address] Chloride molar conc99 mmol/GEdivnh85-870 [facility] HospitalComment on above:Performed By: #### BMP, BNP ####[facility] [address]vql[address]sz[address]31 [place] [address] Performed By: #### ERTPF, CONNER, LIP, LIVP, TEGCR ####[facility] Dzmtpypaxqds1774 [place] [address] XM9 molar conc27 mmol/TTsqikz22-42ZuismBethesda North HospitalComment on above:Performed By: #### BMP, BNP ####[facility] Nkmcolpsjvqb8578 [place] [address] Creatinine mass conc0.54 mg/dLLow 0.70-1.20Bethesda North HospitalComment on above:Performed By: #### BMP, BNP ####[facility] Gmlcwahyamux9619 [place] [address] GFR, Amer>60Normal>60Bethesda North HospitalComment on above: Performed By: #### BMP, BNP ####[address] [address] Performed By: #### ERTPF, CONNER, LIP, LIVP, TEGCR ####[facility] Yhkeaykujsvi3434 [place] [address] GFR,non Amer>60 Normal>60MerKindred HospitalComment on above:Performed By: #### BMP, BNP ####[facility] Cfhsovysoqyd6704 [place] [address] Performed By: #### ERTPF, CONNER, LIP, LIVP, TEGCR ####[facility] Uupepmkprixt5911 [place] [address] Glucose mass clhr818 mg/qTJscz93-88QtxcnSutter Roseville Medical CenterComment on above:Performed By: #### BMP, BNP ####[facility] Ywaovkugdnbs6099 [place] [address] Potassium molar conc4.4 mmol/LNormal3.7-5.3MRiverside Community HospitalComment on above:Performed By: #### BMP, BNP ####[facility] [address]uinvhsknoi2385 [place] [address] Sodium molar urpb744 mmol/WJyaofh851-260OdwpeKindred HospitalComment on above:Performed By: #### BMP, BNP ####[facility] Pvlefwgfxcha5679 [place] [address] Urea nitrogen mass conc7 mg/dLNormal6-20[facility] North HospitalComment on above:Performed By: #### BMP, BNP ####[facility] Qugahstsptlf7207 [place] [address] Performed By: #### ERTPF, CONNER, LIP, LIVP, TEGCR ####[facility] Oamnlhsedqys3885 [place] [address] Anion gap 3 molar conc10 mmol/LNormal9-17 [facility] HospitalComment on above:Performed By: #### ERTPF, CONNER, LIP, LIVP, TEGCR ####[address] [place] [address] XK9 molar conc28 mmol/MOlocfk93-47HcnrwBethesda North Hospital Comment on above:Performed By: #### ERTPF, CONNER, LIP, LIVP, TEGCR ####[address] [place] [address] Creatinine mass conc0.56 mg/dLLow0.70-1.20[facility] North HospitalComment on above:Performed By: #### ERTPF, CONNER, LIP, LIVP, TEGCR ####[address] [place] [address] Glucose mass conc97 mg/eCHwiufq91-87PigarRiverside Community HospitalComment on above:Performed By: #### ERTPF, CONNER, LIP, LIVP, TEGCR ####[address] [address] Potassium molar conc4.7 mmol/LNormal3.7-5.3MRiverside Community HospitalComment on above:Performed By: #### ERTPF, CONNER, LIP, LIVP, TEGCR ####[facility] [address] [place] [address] Sodium molar gtiz271 mmol/KVqtpuo868-272 [facility] North HospitalComment on above:Performed By: #### ERTPF, CONNER, LIP, LIVP, TEGCR ####[address] [place] [address] BUN/CRE RatioNOT REPORTEDNormal9-20[facility] North HospitalComment on above:Performed By: #### BMP, BNP ####[address] [address] Performed By: #### ERTPF, CONNER, LIP, LIVP, TEGCR ####[address] [address] Staging:NOT REPORTEDNormalBethesda North HospitalComment on above: Performed By: #### BMP, BNP ####[address] [address] Performed By: #### ERTPF, CONNER, LIP, LIVP, TEGCR ####[facility] [address] [place] [address] Brain Natri. Peptideon 72-99-5724Mxsltujefwk peptide B mass conc (Bld)92440 pg/mLHigh<300Bethesda North HospitalComment on above:Result Comment: Pro-BNP results cannot be compared to BNP results.Performed By: #### BMP, BNP ####[facility] [address]zyursw[address] [place] [address] Natriuretic peptide B mass conc (Bld) NormalBethesda North HospitalComment on above:Result Comment: Pro-BNP Reference Range:Rule Out: <300[place]rey Zone: Age <50 300-450 Age 50-75 300-900 Age >75 300-1800Usually represents mild to moderate HF but other cardiopulmonary causes cannot be ruled out.Rule In: Age <50 >450 Age 50-75 >900 Age >75 >1800 Performed By: #### BMP, BNP ####[address] [phone] 58-59-4647Xftqfjsgtqk distribution width Auto Ratio (RBC)15.8 %High11.8-14.4Bethesda North HospitalComment on above: Performed By: #### ERTPF, CONNER, LIP, LIVP, TEGCR ####[address] [address] Hematocrit Auto Volume Fraction (Bld)35.6 %Low40.7-50.3MRiverside Community HospitalComment on above:Performed By: #### ERTPF, CONNER, LIP, LIVP, TEGCR ####[address] [address] Hemoglobin mass conc (Bld)12.1 g/dLLow13.0-17.0Bethesda North HospitalComment on above:Performed By: #### ERTPF, CONNER, LIP, LIVP, TEGCR ####[address] [address] MCH Auto Entitic mass (RBC)31.1 ovImmthc00.2-33.5[facility] Comment on above:Performed By: #### ERTPF, CONNER, LIP, LIVP, TEGCR ####[address] [address] MCHC Auto mass conc (RBC)34.0 g/pSGjtmpn85.4-34.8Bet[facility]da North HospitalComment on above: Performed By: #### ERTPF, CONNER, LIP, LIVP, TEGCR ####[address] [address] MCV Auto Entitic volume (RBC)91.5 fL Nrttow51.6-102.9Bethesda North HospitalComment on above:Performed By: #### ERTPF, CONNER, LIP, LIVP, TEGCR ####[address] [address] NRBC Automated0.0 per 100 WBCNormal0.0Bethesda North HospitalComment on above:Performed By: #### ERTPF, CONNER, LIP, LIVP, TEGCR ####[address] [phone] Auto #/vol (Bld)See Reflexed IPF RojdfoNmhwbh208-432MimofBethesda North Hospital Comment on above:Performed By: #### ERTPF, CONNER, LIP, LIVP, TEGCR ####[address] [address] RBC Auto #/vol (Bld)3.89 10*6/uLLow4.21-5.77[facility] North HospitalComment on above:Performed By: #### ERTPF, CONNER, LIP, LIVP, TEGCR ####[address] [address] WBC Auto #/vol (Bld)19.4 10*3/uLHigh3.5-11.3 [facility] HospitalComment on above:Performed By: #### ERTPF, CONNER, LIP, LIVP, TEGCR ####[address] [address] Platelet mean volume Auto Entitic volume (Bld)NOT REPORTEDNormal 8.1-13.5Bet[facility] North HospitalComment on above:Performed By: #### ERTPF, CONNER, LIP, LIVP, TEGCR ####[address] [address] [address] GUIDED THORACENTESISon 71-62-0174EL GUIDED THORACENTESIS PROCEDURE:CTGUIDED RIGHT THORACENTESIS01/21/2018HISTORY:ORDERING SYSTEM PROVIDED HISTORY: pleural effusion. spoke with Dr. Landers PROVIDED HISTORY:pleural effusion. spoke with Dr. Ram:Informed consent was obtained after a detailed explanation of the procedureincluding risks, benefits, and alternatives. Twain protocol wasperformed. The right chest was prepped and draped insterile fashion andlocal anesthesia was achieved with lidocaine. An 5 Iranian needle sheath wasadvanced under ultrasound guidance into pleural effusion and thoracentesiswas performed; ~ 150 mL of mildly serosanguineous fluid was removed. A 2ndpuncture again using 5 Iranian needle sheath was used, a 0.018 inch guidewireintroduced, and a 6 Iranian pigtail catheter placed. Another 450 mL ofsimilar-appearing fluid was then aspirated. The patient tolerated theprocedure well.FINDINGS:A total of 700 mL was removed. As above, fluid was mildly serosanguineous.Small pneumothorax is noted following the procedure. Follow-up chest x-rayordered for 1 hour postprocedure. Patient has extensive emphysematouschanges.IMPRESSION: Successful CT guided thoracentesis. Small pneumothorax post thoracentesis.Chest x-ray ordered.Interpreted by:NADEGE Carrascoigned by:Fidel Link MD01/21/inal resultNormalMerKindred HospitalCalcium, Ionicon 98-39-8157Cxxcoyq mass conc1.17 mmol/LNormal 1.13-1.33Bet[facility] North HospitalComment on above:Performed By: #### ERTPF, CONNER, LIP, LIVP, TEGCR ####[facility] [address]lfmje[address] [place] [address] Creatinine,Random Uron 26-00-9921Tzzdbpfclh mass conc83.9 mg/yJAbglwr60.0-259.0MerKindred HospitalComment on above:Performed By: #### URCRE, URNA ####[facility] [address]qkwpacykcae8427 [place] [address] Lactate Dehydrog, Flon 21-53-4167MG - Qwboe288 U/LNormalMerKindred HospitalComment on above:Result Comment: There are no normals for body fluid samples.Performed By: #### OHP, IOCAL ####[facility] [address]41 [place] [address] Type of Specimen.THORACENTESIS FLUID NormalBethesda North HospitalComment on above:Performed By: #### OHP, IOCAL ####[facility] [address]kvhxlilb[address]381 [place] [address] Lactate Dehydrogenaseon 14-06-1713FPF enzyme act/cvz658 U/KLqse408-693FsaysBethesda North HospitalComment on above:Performed By: #### OHP, IOCAL ####[facility] [address]cxuvvogyvn9678 [place] [address] Lactic Acid,Whole Blon 64-80-6125Rwjcza Acid,Whole Bl2.6 mmol/LHigh0.7-2.1MercSutter Roseville Medical CenterComment on above:Performed By: #### ERTPF, CONNER, LIP, LIVP, TEGCR ####[facility] Nad[address]udfckzov5199 [place] [address] MRI CERVICAL SPINE WO CONTRASTon 58-18-1313WLR CERVICAL SPINE WO CONTRASTEXAMINATION:MRI OF THE CERVICAL [...] extending distally.Interpreted by:NADEGE Carreonigned by:Mariana Whitfield MD01/21/inal resultNormalMerKindred HospitalMagnesiumon 54-64-0546Ubxjfvzrp mass conc1.9 mg/dLNormal1.6-2.6[facility] HospitalComment on above:Performed By: #### CBC, IPF, IOCAL, LACWB, BMP, MG, SHERRY ####[facility] Ueklztnecxeb7332 [place] [address] PLT, Immature Fract.on 02-59-2894Wuanjlye, Fluoresc.135 k/gHMat127-162AbzduKindred HospitalComment on above:Result Comment: ORDERED BY LABPerformed By: #### ERTPF, CONNER, LIP, LIVP, TEGCR ####[facility] Iezyanhgyzca5398 [place] [address] PLT, Immature Fract.3.9 %Normal1.1-10.3[facility] HospitalComment on above:Result Comment: ORDERED BY LABPerformed By: #### ERTPF, CONNER, LIP, LIVP, TEGCR ####[facility] Hsbrqqvylhxa5960 [place] [address] Phosphorus, Inorg.on 92-93-6043Lidkgehfyw, Inorg.3.7 mg/dL Normal2.5-4.5Bet[facility] North HospitalComment on above:Performed By: #### CBC, IPF, IOCAL, LACWB, BMP, MG, SHERRY ####[facility] Cmmpqtveajdz0688 [place], [place] [phone], Totalon 80-69-8958Xyufbod mass conc5.1 g/dLLow6.4-8.3MRiverside Community HospitalComment on above:Performed By: #### OHP, IOCAL ####[facility] Nvudzsbiktoc8647 [place], [place] [phone],Tot,Fluidon 87-22-6258Rvsokmr mass conc1.6 g/dLNormal [facility] HospitalComment on above:Result Comment: There are no normals for body fluid samples.Performed By: #### OHP, IOCAL ####[facility] Zxtuebqtdwyg5024 [place], [place] [phone], Random Uron 40-19-6188My Conc. Clepv476 mmol/LNormalBethesda North HospitalComment on above:Result Comment: No normal range established.Performed By: #### URCRE, URNA ####[facility] Lkiyltucblux7428 [place], [place] [phone] ABDOMEN (KUB) (SINGLE AP VIEW)on 56-71-9998EG ABDOMEN (KUB) (SINGLE AP VIEW) EXAMINATION:SINGLE SUPINE [...] approximately 10 cm.Interpreted by:NADEGE Diazigned by:Raul Currie MD01/21/18FSt. Mary's Medical CenterXR CHEST PORTABLEon 22-26-6304PM CHEST PORTABLE EXAMINATION:SINGLE XRAY VIEW OF THE CHEST01/21/2018 5:24 pmCOMPARISON:AP chest from 01/21/2018 at 10:36HISTORY:ORDERING SYSTEM PROVIDED HISTORY: 1 hour post thoraTECHNOLOGIST PROVIDED HISTORY:1 hour post thoraSmall pneumothorax noted post CT-guided thoracentesis.FINDINGS:Overlying ECG monitor leads.Enteric tube tip and side hole below the lefthemidiaphragm. [place] and clips in the upper abdomen.Reduction size right pleural effusion. No significant pneumothoraxidentified. Extensive emphysematous and interstitial changes again noted, aswell as a left pleural effusion.Cardiomediastinal shadow on bony structures stable.IMPRESSION: Reduction right pleural effusion status post CT- guided thoracentesis. Nosignificant pneumothorax identified. Additional unchanged findings, as above.RECOMMENDATION:Chest x-ray follow-up in the a.m. assuming clinical stability.Interpreted by:NADEGE Carrascoigned by:Fidel Link MD01/21/18FSt. Mary's Medical CenterXR CHEST PORTABLEEXAMINATION:SINGLE XRAY VIEW OF THE CHEST01/21/2018 [...] and atelectasis.Interpreted by:NADEGE Diazigned by:Raul Currie MD01/21/18Final resultNormalBethesda North HospitalAPTTon 42-25-7020hKGZ Coag time (Bld)44.9 sHigh 20.5-30.5Bethesda North HospitalComment on above:Performed By: #### ERTPF, CONNER, LIP, LIVP, TEGCR ####[facility] [address]vvtxwdp[address]83 [place] [address] Basic Metabolic Profon 01-20-2018(cont.)NormalBethesda North HospitalComment on above:Result Comment: Average GFR for 50-59 years old: 93 mL/min/1.73sq mChronic Kidney Disease: <60 mL/min/1.73sq mKidney failure: <15 mL/min/1.73sq meGFR calculated using average adult body mass. Ad ditional eGFR calculator available at:http://www.[employer] [employer]/multiple_crcl_2012.htmPerformed By: #### ERTPF, CONNER, LIP, LIVP, TEGCR ####[facility] Wihrkjducmsc[address] [place] [address] [phone] gap 3 molar conc18 mmol/LHigh9-17Bet[facility] North HospitalComment on above:Performed By: #### ERTPF, CONNER, LIP, LIVP, TEGCR ####[facility] Idkomwzfsrmk0606 [place] [address] Calcium mass conc7.5 mg/dLLow8.6-10.4[facility] North HospitalComment on above:Performed By: #### ERTPF, CONNER, LIP, LIVP, TEGCR ####[facility] Iywjcmfdairx7529 [place] [address] Chloride molar fsow876 mmol/WBixayk21-151XeidiBethesda North HospitalComment on above:Performed By: #### ERTPF, CONNER, LIP, LIVP, TEGCR ####[facility] Hwtuinabvwdz5130 [place] [address] KU3 molar conc 17 mmol/LUuv91-86IgfojKindred HospitalComment on above:Performed By: #### ERTPF, CONNER, LIP, LIVP, TEGCR ####[facility] [address] [place] [address] Creatinine mass conc0.38 mg/dLLow0.70-1.20MerKindred HospitalComment on above:Performed By: #### ERTPF, CONNER, LIP, LIVP, TEGCR ####[place] [address] GFR, Amer>60Normal>60[facility] North HospitalComment on above:Performed By: #### ERTPF, CONNER, LIP, LIVP, TEGCR ####[place] [address] GFR,non Amer>60Normal>60[facility] North HospitalComment on above:Performed By: #### ERTPF, CONNER, LIP, LIVP, TEGCR ####[address] [address] Glucose mass conc80 mg/qNShxgwu25-75Ggfqu [facility] Community HospitalComment on above:Performed By: #### ERTPF, CONNER, LIP, LIVP, TEGCR ####[facility] [address] [place] [address] Potassium molar conc4.3 mmol/LNormal3.7-5.3[facility] HospitalComment on above:Performed By: #### ERTPF, CONNER, LIP, LIVP, TEGCR ####[address] [address] Sodium molar mxrk439 mmol/NHraumk740-959AbwtaKindred HospitalComment on above:Performed By: #### ERTPF, CONNER, LIP, LIVP, TEGCR ####[facility] Nkvvfyjiukfo4530 [place], [place] [phone] nitrogen mass conc6 mg/dLNormal6-20 [facility] HospitalComment on above:Performed By: #### ERTPF, CONNER, LIP, LIVP, TEGCR ####[address] [place] [address] [phone]/CRE RatioNOT REPORTEDNormal9-20[facility] HospitalComment on above:Performed By: #### ERTPF, CONNER, LIP, LIVP, TEGCR ####[address] [phone]:NOT REPORTED NormalBethesda North HospitalComment on above:Performed By: #### ERTPF, CONNER, LIP, LIVP, TEGCR ####[address] [address] (cont.)NormalBethesda North HospitalComment on above: Result Comment: Average GFR for 50-59 years old: 93 mL/min/1.73sq mChronic Kidney Disease: <60 mL/min/1.73sq mKidney failure: <15 mL/min/1.73sq meGFR calculated using average adult body mass. Additional eGFR calculator available at:http://www.[employer]/multiple_crcl_2012.htmPerformed By: #### ERTPF, CONNER, LIP, LIVP, TEGCR ####[address] [place] [address] Anion gap 3 molar conc17 mmol/LNormal9-17[facility] HospitalComment on above:Performed By: #### ERTPF, CONNER, LIP, LIVP, TEGCR ####[facility] Zbgnecxwinyi5145 [place], [place] [phone] mass conc7.1 mg/dLLow8.6-10.4Bet[facility] North HospitalComment on above: Performed By: #### ERTPF, CONNER, LIP, LIVP, TEGCR ####[facility] Wjzhrypfzkev0905 [place] [address] Chloride molar jjeg588 mmol/UJmtxak69-701 [facility] HospitalComment on above:Performed By: #### ERTPF, CONNER, LIP, LIVP, TEGCR ####[address] [address] PS9 molar conc16 mmol/XSfb01-10NygtwBethesda North Hospital Comment on above:Performed By: #### ERTPF, CONNER, LIP, LIVP, TEGCR ####[address] [address] Creatinine mass conc0.44 mg/dLLow0.70-1.20[facility] HospitalComment on above:Performed By: #### ERTPF, CONNER, LIP, LIVP, TEGCR ####[address] [address] GFR, Amer>60Normal>60[facility] North HospitalComment on above:Performed By: #### ERTPF, CONNER, LIP, LIVP, TEGCR ####[address] [address] GFR,non Amer>60 Normal>60[facility] North HospitalComment on above:Performed By: #### ERTPF, CONNER, LIP, LIVP, TEGCR ####[address] [address] Glucose mass conc89 mg/uYIbmmwn07-22PnahxRiverside Community HospitalComment on above:Performed By: #### ERTPF, CONNER, LIP, LIVP, TEGCR ####[address] [address] Potassium molar conc4.5 mmol/LNormal3.7-5.3[facility] HospitalComment on above:Performed By: #### ERTPF, CONNER, LIP, LIVP, TEGCR ####[place], [place] [phone] molar epyl593 mmol/FKoaxqb383-866DjukbBethesda North HospitalComment on above:Performed By: #### ERTPF, CONNER, LIP, LIVP, TEGCR ####[place] [address] Urea nitrogen mass conc5 mg/dLLow6-20[facility] HospitalComment on above:Performed By: #### ERTPF, CONNER, LIP, LIVP, TEGCR ####[place], [place] [phone]/CRE RatioNOT REPORTEDNormal9-20[facility] North HospitalComment on above:Performed By: #### ERTPF, CONNER, LIP, LIVP, TEGCR ####[place] [address] Staging:NOT REPORTEDNormalBethesda North HospitalComment on above: Performed By: #### ERTPF, CONNER, LIP, LIVP, TEGCR ####[place], [place] [address])[phone] with Diffon 26-79-9035Xjp. Basophil 0.00 k/uLNormal0.0-0.2MRiverside Community HospitalComment on above:Performed By: #### ERTPF, CONNER, LIP, LIVP, TEGCR ####[place], [place] [phone].Imm.Granulocyte0.02 k/uLNormal0.00-0.30[facility] HospitalComment on above:Performed By: #### ERTPF, CONNER, LIP, LIVP, TEGCR ####[address] [address] Abs.Neutrophil (Seg)0.90 k/uLLow1.8-7.7Bet[facility] North HospitalComment on above:Performed By: #### ERTPF, CONNER, LIP, LIVP, TEGCR ####[address] [address] Basophils/100 WBC Auto (Bld)0 %Normal0-2MercSutter Roseville Medical CenterComment on above:Performed By: #### ERTPF, CONNER, LIP, LIVP, TEGCR ####[place] [address] Eosinophils Auto #/vol (Bld)0.00 10*3/uLNormal0.0-0.4[facility] HospitalComment on above:Performed By: #### ERTPF, CONNER, LIP, LIVP, TEGCR ####[place] [address] Eosinophils/100 WBC Auto (Bld)0 %Low1-4Bet[facility] North HospitalComment on above:Performed By: #### ERTPF, CONNER, LIP, LIVP, TEGCR ####[address] [address] Immature granulocytes #/vol (Bld)1 %Poaf1ZyhuvBethesda North HospitalComment on above:Performed By: #### ERTPF, CONNER, LIP, LIVP, TEGCR ####[address] [address] Lymphocytes Auto #/vol (Bld)0.47 10*3/uLLow 1.0-4.8[facility] North HospitalComment on above:Performed By: #### ERTPF, CONNER, LIP, LIVP, TEGCR ####[address] [place] [address] Lymphocytes/100 WBC Auto (Bld)31 %Utieey62-80DivotBethesda North HospitalComment on above:Performed By: #### ERTPF, CONNER, LIP, LIVP, TEGCR ####[address] [address] Monocytes Auto #/vol (Bld)0.11 10*3/uLNormal0.1-0.8[facility] HospitalComment on above:Performed By: #### ERTPF, CONNER, LIP, LIVP, TEGCR ####[address] [address] Monocytes/100 WBC Auto (Bld)7 %Normal1-7 [facility] HospitalComment on above:Performed By: #### ERTPF, CONNER, LIP, LIVP, TEGCR ####[address] [address] Morphology Interp Eduard (Bld)ANISOCYTOSIS PRESENTNormalBethesda North HospitalComment on above:Performed By: #### ERTPF, CONNER, LIP, LIVP, TEGCR ####[address] [address] Neutrophil (Seg)61 %Urrxcp97-28OavxsBethesda North HospitalComment on above: Performed By: #### ERTPF, CONNER, LIP, LIVP, TEGCR ####[address] [address] NRBC Automated0.0 per 100 WBCNormal0.0 [facility] HospitalComment on above:Performed By: #### ERTPF, CONNER, LIP, LIVP, TEGCR ####[address] [address] Platelet mean volume Auto Entitic volume (Bld)9.9 fLNormal8.1-13.5 [facility] HospitalComment on above:Performed By: #### ERTPF, CONNER, LIP, LIVP, TEGCR ####[address] [address] Platelets Auto #/vol (Bld)176 10*3/jFUkatkj899-200ZsdlxBethesda North HospitalComment on above:Performed By: #### ERTPF, CONNER, LIP, LIVP, TEGCR ####[address] [address] WBC Auto #/vol (Bld)1.5 10*3/uLLow3.5-11.3MRiverside Community HospitalComment on above:Performed By: #### ERTPF, CONNER, LIP, LIVP, TEGCR ####[address] [address] Erythrocyte distribution width Auto Ratio (RBC)16.1 %High11.8-14.4[facility] Comment on above:Performed By: #### ERTPF, CONNER, LIP, LIVP, TEGCR ####[address] [address] Hematocrit Auto Volume Fraction (Bld)38.6 %Low40.7-50.3MRiverside Community HospitalComment on above:Performed By: #### ERTPF, CONNER, LIP, LIVP, TEGCR ####[address] [address] Hemoglobin mass conc (Bld)12.4 g/dLLow 13.0-17.0Bet[facility] North HospitalComment on above:Performed By: #### ERTPF, CONNER, LIP, LIVP, TEGCR ####[address] [address] MCH Auto Entitic mass (RBC)31.2 vtFglnpu97.2-33.5[facility] HospitalComment on above:Performed By: #### ERTPF, CONNER, LIP, LIVP, TEGCR ####[facility] [address] [place] [address] MCHC Auto mass conc (RBC)32.1 g/iBDjfput76.4-34.8[facility] Comment on above:Performed By: #### ERTPF, CONNER, LIP, LIVP, TEGCR ####[facility] [address] [place] [address] MCV Auto Entitic volume (RBC)97.2 fBZhaije20.6-102.9Bet[facility] North HospitalComment on above: Performed By: #### ERTPF, CONNER, LIP, LIVP, TEGCR ####[place] [address] RBC Auto #/vol (Bld)3.97 10*6/uLLow 4.21-5.77[facility] HospitalComment on above:Performed By: #### ERTPF, CONNER, LIP, LIVP, TEGCR ####[facility] [address] [place] [address] Auto Diff PerformedNOT REPORTEDNoalBethesda North HospitalComment on above:Performed By: #### ERTPF, CONNER, LIP, LIVP, TEGCR ####[place] [address] Platelets Auto #/vol (Bld)NOT REPORTEDClermont County HospitalComment on above: Performed By: #### ERTPF, CONNER, LIP, LIVP, TEGCR ####[facility] [address]fu[address] [place] [address] RBC morphology finding Nom (Bld)NOT REPORTEDClermont County HospitalComment on above:Performed By: #### ERTPF, CONNER, LIP, LIVP, TEGCR ####[address] [address] WBC MorphologyNOT REPORTEDNormalMerKindred HospitalComment on above:Performed By: #### ERTPF, CONNER, LIP, LIVP, TEGCR ####[address] [address] Abs. Basophil0.00 k/uL Normal0.0-0.2MRiverside Community HospitalComment on above:Performed By: #### ERTPF, CONNER, LIP, LIVP, TEGCR ####[address] [address] Abs.Imm.Granulocyte0.00 k/uLNormal0.00-0.30[facility] North HospitalComment on above:Performed By: #### ERTPF, CONNER, LIP, LIVP, TEGCR ####[address] [address] Abs.Neutrophil (Seg)0.80 k/uLLow1.8-7.7Bet[facility] North HospitalComment on above: Performed By: #### ERTPF, CONNER, LIP, LIVP, TEGCR ####[address] [address] Basophils/100 WBC Auto (Bld)0 %Normal0-2 [facility] HospitalComment on above:Performed By: #### ERTPF, CONNER, LIP, LIVP, TEGCR ####[address] [address] Eosinophils Auto #/vol (Bld)0.00 10*3/uLNormal0.0-0.4[facility] HospitalComment on above:Performed By: #### ERTPF, CONNER, LIP, LIVP, TEGCR ####[address] [address] Eosinophils/100 WBC Auto (Bld)0 %Low1-4[facility] HospitalComment on above:Performed By: #### ERTPF, CONNER, LIP, LIVP, TEGCR ####[address] [address] Immature granulocytes #/vol (Bld)0 %Kctgiv8TagqaBethesda North HospitalComment on above:Performed By: #### ERTPF, CONNER, LIP, LIVP, TEGCR ####[address] [address] Lymphocytes Auto #/vol (Bld)0.66 10*3/uLLow 1.0-4.8[facility] HospitalComment on above:Performed By: #### ERTPF, CONNER, LIP, LIVP, TEGCR ####[address] [address] Lymphocytes/100 WBC Auto (Bld)39 %Hhbolu17-08BsynmBethesda North HospitalComment on above:Performed By: #### ERTPF, CONNER, LIP, LIVP, TEGCR ####[address] [address] Monocytes Auto #/vol (Bld)0.24 10*3/uLNormal0.1-0.8[facility] HospitalComment on above:Performed By: #### ERTPF, CONNER, LIP, LIVP, TEGCR ####[address] [address] Monocytes/100 WBC Auto (Bld)14 %High1-7 [facility] HospitalComment on above:Performed By: #### ERTPF, CONNER, LIP, LIVP, TEGCR ####[address] [address] Morphology Interp Eduard (Bld)NormalNormalBethesda North HospitalComment on above:Performed By: #### ERTPF, CONNER, LIP, LIVP, TEGCR ####[place] [address] Neutrophil (Seg)47 % Puifqt61-09AgyvhBethesda North HospitalComment on above:Performed By: #### ERTPF, CONNER, LIP, LIVP, TEGCR ####[place] [address] NRBC Automated0.0 per 100 WBCNormal0.0Bethesda North HospitalComment on above:Performed By: #### ERTPF, CONNER, LIP, LIVP, TEGCR ####[place] [address] Platelet mean volume Auto Entitic volume (Bld)9.6 fLNormal8.1-13.5Bet[facility]da North HospitalComment on above:Performed By: #### ERTPF, CONNER, LIP, LIVP, TEGCR ####[place] [address] Platelets Auto #/vol (Bld)171 10*3/mXQpunuq941-983FkdpnKindred HospitalComment on above: Performed By: #### ERTPF, CONNER, LIP, LIVP, TEGCR ####[place] [address] WBC Auto #/vol (Bld)1.7 10*3/uLLow 3.5-11.3MRiverside Community HospitalComment on above:Performed By: #### ERTPF, CONNER, LIP, LIVP, TEGCR ####[address] [address] Erythrocyte distribution width Auto Ratio (RBC)15.5 %High 11.8-14.4Bethesda North HospitalComment on above:Performed By: #### ERTPF, CONNER, LIP, LIVP, TEGCR ####Filomena [address] [place] [address] Hematocrit Auto Volume Fraction (Bld)38.5 %Low40.7-50.3MercSutter Roseville Medical CenterComment on above:Performed By: #### ERTPF, CONNER, LIP, LIVP, TEGCR ####[place] [address] Hemoglobin mass conc (Bld)12.5 g/dLLow13.0-17.0[facility] Comment on above:Performed By: #### ERTPF, CONNER, LIP, LIVP, TEGCR ####[address] [address] MCH Auto Entitic mass (RBC)31.2 hjYktriw13.2-33.5Bethesda North HospitalComment on above: Performed By: #### ERTPF, CONNER, LIP, LIVP, TEGCR ####[place] [address] MCHC Auto mass conc (RBC)32.5 g/dLNormal 28.4-34.8Bet[facility] North HospitalComment on above:Performed By: #### ERTPF, CONNER, LIP, LIVP, TEGCR ####[address] [address] MCV Auto Entitic volume (RBC)96.0 sCPazzum37.6-102.9Bet[facility] North HospitalComment on above:Performed By: #### ERTPF, CONNER, LIP, LIVP, TEGCR ####[address] [address] RBC Auto #/vol (Bld)4.01 10*6/uLLow4.21-5.77Bet[facility] North HospitalComment on above:Performed By: #### ERTPF, CONNRE, LIP, LIVP, TEGCR ####[facility] [address] [place] [address] Auto Diff PerformedNOT REPORTEDClermont County HospitalComment on above:Performed By: #### ERTPF, CONNER, LIP, LIVP, TEGCR ####[facility] [address]me[address] [place] [address] Platelets Auto #/vol (Bld)NOT REPORTEDClermont County HospitalComment on above:Performed By: #### ERTPF, CONNER, LIP, LIVP, TEGCR ####[facility] [address]awzn[address] [place] [address] RBC morphology finding Nom (Bld)NOT REPORTEDClermont County Hospital Comment on above:Performed By: #### ERTPF, CONNER, LIP, LIVP, TEGCR ####[facility] [address] [place] [address] WBC MorphologyNOT REPORTEDClermont County HospitalComment on above:Performed By: #### ERTPF, CONNER, LIP, LIVP, TEGCR ####Sarithay [address]pq[address]ai[address] [place] [address] Calcium, Ionicon 90-12-8243Iohpcdi mass conc1.13 mmol/L Normal1.13-1.33Bet[facility] North HospitalComment on above:Performed By: #### ERTPF, CONNER, LIP, LIVP, TEGCR ####[facility] [address]rmpkw[address] [place] [address] Calcium mass conc1.06 mmol/LLow1.13-1.33[facility] North HospitalComment on above:Performed By: #### ERTPF, CONNER, LIP, LIVP, TEGCR ####[facility] [address]zwrtyzbnus25[address] [place] [address] Calcium mass conc1.36 mmol/LHigh1.13-1.33[facility] North HospitalComment on above: Performed By: #### ERTPF, CONNER, LIP, LIVP, TEGCR ####[facility] Dljtokwvhmsv[address] [place] [address] Fibrinogenon 67-24-5358Munvvabxyb<80 Critically jtx022-493VgrdvBethesda North HospitalComment on above:Result Comment: TESTCONFIRMEDPerformed By: #### ERTPF, CONNER, LIP, LIVP, TEGCR ####[facility] [address] [place] [address] Lactic Acid,Whole Blon 79-78-2005Oevzec Acid,Whole Bl3.2 mmol/LHigh0.7-2.1MRiverside Community HospitalComment on above:Performed By: #### ERTPF, CONNER, LIP, LIVP, TEGCR ####[facility] [address] [place] [address] Lactic Acid,Whole Bl5.6 mmol/LHigh0.7-2.1MRiverside Community HospitalComment on above:Performed By: #### ERTPF, CONNER, LIP, LIVP, TEGCR ####[facility] [address]jqshvsyry[address] [place] [address] Lactic Acid,Whole Bl5.9 mmol/LHigh0.7-2.1MRiverside Community HospitalComment on above:Performed By: #### ERTPF, CONNER, LIP, LIVP, TEGCR ####[facility] [address]jv[address] [place] [address] Liver Profile on 38-42-5991Nvnpjin mass conc2.3 g/dLLow3.5-5.2MRiverside Community Hospital Comment on above:Performed By: #### ERTPF, CONNER, LIP, LIVP, TEGCR ####[facility] [address] [place] [address] Albumin/Globulin mass ratio1.4 {ratio}Normal1.0-2.5Bethesda North HospitalComment on above: Performed By: #### ERTPF, CONNER, LIP, LIVP, TEGCR ####[address] [address] Alkaline Phos54 U/CZqzktn26-701YrwymBethesda North HospitalComment on above:Performed By: #### ERTPF, CONNER, LIP, LIVP, TEGCR ####[address] [address] ALT enzyme act/vol22 U/LNormal5-41Bethesda North HospitalComment on above: Performed By: #### ERTPF, CONNER, LIP, LIVP, TEGCR ####[address] [address] AST enzyme act/vol48 U/LHigh<40Bethesda North HospitalComment on above:Performed By: #### ERTPF, CONNER, LIP, LIVP, TEGCR ####[address] [address] Bilirubin Ql (U)0.97 mg/dLNormal0.3-1.2MRiverside Community HospitalComment on above:Performed By: #### ERTPF, CONNER, LIP, LIVP, TEGCR ####[address] [address] Bilirubin, Indirect0.24 mg/dLNormal0.00-1.00Bet[facility] North HospitalComment on above:Performed By: #### ERTPF, CONNER, LIP, LIVP, TEGCR ####[facility] [address] [place] [address] Bilirubin.direct mass conc0.73 mg/dLHigh<0.31 [facility] North HospitalComment on above:Performed By: #### ERTPF, CONNER, LIP, LIVP, TEGCR ####[facility] S[address] [place] [address]60 Protein mass conc3.9 g/dLLow6.4-8.3[facility] Community HospitalComment on above:Performed By: #### ERTPF, CONNER, LIP, LIVP, TEGCR ####[address] [address] Globulin Calculated mass conc (S)NOT REPORTEDNormal1.5-3.8MerKindred HospitalComment on above:Performed By: #### ERTPF, CONNER, LIP, LIVP, TEGCR ####[address] [address] MRSA, DNA, Nasalon 76-68-4194SSGL, DNA, NasalNEGATIVE: MRSA DNA not detected by nucleic acid amplification.NormalNMRSAABethesda North HospitalComment on above: Result Comment: Results should be used as an adjunct to nosocomial control efforts to identify patients needing enhanced precautions.The test is not intended to identify patients with staphylococcal infections. Results should not be used to guide or monitor treatment for MRSA infections.Performed By: #### ERTPF, CONNER, LIP, LIVP, TEGCR ####[address] [phone] Description.NASAL SWABNormalMerKindred HospitalComment on above:Performed By: #### ERTPF, CONNER, LIP, LIVP, TEGCR ####[address] [phone] 67-91-6350Jovasuqtf mass conc1.7 mg/dLNormal1.6-2.6MRiverside Community HospitalComment on above:Performed By: #### ERTPF, CONNER, LIP, LIVP, TEGCR ####[address] [address] Magnesium mass conc1.2 mg/dLLow1.6-2.6[facility] HospitalComment on above:Performed By: #### ERTPF, CONNER, LIP, LIVP, TEGCR ####[facility] Add[address]nkf[address] [place], [place] [address] Magnesium mass conc1.1 mg/dLLow1.6-2.6[facility] HospitalComment on above:Performed By: #### ERTPF, CONNER, LIP, LIVP, TEGCR ####[facility] [address]qtecl[address] [place], [place] [address] OPERATIVE REPORTon 14-49-2725LGIHENECT REPORT[address] [address] OPERATIVE REPORTPATIENT NAME: ALEJO FLOYD : 1960MED REC NO: [id number] [facility] [id number] ADMIT DATE: 01/19/2018PROVIDER: Ele MottDATE OF PROCEDURE: [...] L1 burst fracture. [facility]. On arrival,the [...] we turned our attention to performing a jhrb-dw-xkxi ileocolonicanastomosis. A EWELINA blue load 75 was [...] was made using #0 looped PDS from meaudwyn-hp-fcycjzur wdsqisrilvn-mj-hneopuby tying in the m iddle. Once the [...] of the procedure.ELE MOTTD: 01/20/2018 4:44:47 MARIE_DUSTINRA_TJob#: [id number] Doc#: [id number]: Morgan TaylorClermont County HospitalOpen Heart Panelon 03-83-1739Yzzax TestINFORMATION NOT PROVIDEDClermont County HospitalComment on above:Performed By: #### ERTPF, CONNER, LIP, LIVP, TEGCR ####[facility] [address]hev[address]jymmpa[address] [place] [address] Body Temp.37.0Normal [facility] North HospitalComment on above:Performed By: #### ERTPF, CONNER, LIP, LIVP, TEGCR ####[facility] [address]klgozrn[address] [place] [address] Carboxy Hgb3.8 %Normal0-5Bet[facility] North HospitalComment on above:Result Comment: Reference Range:Non-Smokers 0-2%Average Smoker 2- 4%Heavy Smoker <10%Performed By: #### ERTPF, CONNER, LIP, LIVP, TEGCR ####[facility] [address]wqvbtwf[address]64 [place] [phone] NOT PROVIDEDClermont County HospitalComment on above:Performed By: #### ERTPF, CONNER, LIP, LIVP, TEGCR ####[facility] Fnccgwhgnjpv4726 [place] [address] Glucose mass conc73 mg/gZIkm17-974CippgBethesda North HospitalComment on above:Performed By: #### ERTPF, CONNER, LIP, LIVP, TEGCR ####[facility] Ucsmwhtpzfoc[address]4 [place] [address] VQM3 molar conc (Bld)13.7 mmol/SOxk08-17YsnyfBethesda North HospitalComment on above: Performed By: #### ERTPF, CONNER, LIP, LIVP, TEGCR ####[facility] Gxtmkmaizlyt[address] [place] [address] Negative Base Sxjzaz17.6 mmol/LHigh 0.0-2.0Bet[facility] North HospitalComment on above:Performed By: #### ERTPF, CONNER, LIP, LIVP, TEGCR ####[facility] R[address]febiuixbt[address]20 [place] [address] Oxygen ppres (BldA)198.0 mm[Hg]Wrmb62-23EtamrBethesda North HospitalComment on above:Performed By: #### ERTPF, CONNER, LIP, LIVP, TEGCR ####[facility] Bokahzxrjwjc[address] [place] [address] Oxygen saturation in Blood98.8 %Dtpulp30-065QggrmBethesda North HospitalComment on above:Performed By: #### ERTPF, CONNER, LIP, LIVP, TEGCR ####[facility] Ccxrnwymrnor[address] [place] [address] fGF429.1 zdGdCwss55-24HcyszBethesda North HospitalComment on above:Performed By: #### ERTPF, CONNER, LIP, LIVP, TEGCR ####[facility] Nwdvhbqymlip2031 [place] [address] pH (Bld)7.092 [pH]Critically low7.350-7.450Bet[facility] North HospitalComment on above: Performed By: #### ERTPF, CONNER, LIP, LIVP, TEGCR ####[facility] Gyjobhqsrzzl[address]90 [place] [address] Chloride molar nbvn002 mmol/MXbzn35-280 [facility] HospitalComment on above:Performed By: #### ERTPF, CONNER, LIP, LIVP, TEGCR ####[address] 43[address] Hematocrit Auto Volume Fraction (Bld)36.2 %Clermont County HospitalComment on above:Performed By: #### ERTPF, CONNER, LIP, LIVP, TEGCR ####Filomena [address] [address] Hemoglobin mass conc (Bld)11.7 g/dLNormalBethesda North HospitalComment on above: Performed By: #### ERTPF, CONNER, LIP, LIVP, TEGCR ####[address] [address] Potassium molar conc4.2 mmol/LNormal 3.6-5.0Bet[facility] North HospitalComment on above:Performed By: #### ERTPF, CONNER, LIP, LIVP, TEGCR ####[address] [address] Sodium molar ifdu277 mmol/HFrx039-728UeuwrBethesda North HospitalComment on above:Performed By: #### ERTPF, CONNER, LIP, LIVP, TEGCR ####[address] [address] PTon 06-13-6003LSD Coag RelTime (PPP)1.6 {INR}NormalBethesda North Hospital Comment on above:Result Comment: Therapeutic Range: Moderate Anticoagulant Intensity: INR = 2.0-3.0 High Anticoagulant Intensity: INR = 2.5-3.5Performed By: #### ERTPF, CONNER, LIP, LIVP, TEGCR ####Filomena [address] [phone] time (PT) Coag time (PPP)16.9 sHigh 9.0-12.0Bethesda North HospitalComment on above:Performed By: #### ERTPF, CONNER, LIP, LIVP, TEGCR ####Sarithaernie [address] [place] [address] Phosphorus, Inorg.on 56-83-4992Oppgqbbhav, Inorg.3.1 mg/dL Normal2.5-4.5Bet[facility] North HospitalComment on above:Performed By: #### ERTPF, CONNER, LIP, LIVP, TEGCR ####[address] [address] Phosphorus, Inorg.3.5 mg/dLNormal2.5-4.5Bet[facility] North HospitalComment on above:Performed By: #### ERTPF, CONNER, LIP, LIVP, TEGCR ####[address] [address] Platelet Count on 23-91-1090Amxsltmdu Auto #/vol (Bld)142 10*3/bFRuccbk840-424RkskuBethesda North HospitalComment on above:Performed By: #### ERTPF, CONNER, LIP, LIVP, TEGCR ####[address] [address] Platelets,Transfuseon 91-68-7703Ppvgjvaim,TransfuseUnit Number [id number] Blood Component Type Leukocyte Reduced Irradiated Plateletpheresis Unit Division 00 Status of Unit TRANSFUSED Transfusion Status OK TO TRANSFUSENormalBethesda North HospitalComment on above:Performed By: #### TPLT ####[address] [address] TEG, Rapid Citratedon 92-58-3383REA NZE656.0 gxpXeoimm97-823UacliBethesda North HospitalComment on above:Performed By: #### ERTPF, CONNER, LIP, LIVP, TEGCR ####[address] [address] Angle, Rapid TEG62.2 deg Bpc01-64YcpwzBethesda North HospitalComment on above:Performed By: #### ERTPF, CONNER, LIP, LIVP, TEGCR ####[address] [address] EPL TEG0.6 %Normal0.0-15.0[facility] Comment on above:Performed By: #### ERTPF, CONNER, LIP, LIVP, TEGCR ####[address] [phone] Therapy:None NormalBethesda North HospitalComment on above:Performed By: #### ERTPF, CONNER, LIP, LIVP, TEGCR ####[address] 43[address] K (Kinetics) rTEG2.4 minHigh1.0-2.0[facility] North HospitalComment on above:Performed By: #### ERTPF, CONNER, LIP, LIVP, TEGCR ####[address] [phone] (Lysis) TEG0.6 % Normal0-8[facility] North HospitalComment on above:Performed By: #### ERTPF, CONNER, LIP, LIVP, TEGCR ####[address] [address] MA Rapid TEG54.9 ioDqraja63-76WeeftBethesda North Hospital Comment on above:Performed By: #### ERTPF, CONNER, LIP, LIVP, TEGCR ####Filomena [address] [place] [address] R(Reaction Time)rTEG0.7 minNormal0.0-1.0[facility] North HospitalComment on above:Performed By: #### ERTPF, CONNER, LIP, LIVP, TEGCR ####[address] [address] TEG CommentACT is the only FDA approved component of the Rapid TEG.NormalBethesda North HospitalComment on above:Performed By: #### ERTPF, CONNER, LIP, LIVP, TEGCR ####[address] [address] ACT UCF352.0 aykCbol39-481ZzshdBethesda North Hospital Comment on above:Performed By: #### ERTPF, CONNER, LIP, LIVP, TEGCR ####[place] [address] Angle, Rapid TEG45.2 deg Xys58-63KsqigBethesda North HospitalComment on above:Performed By: #### ERTPF, CONNER, LIP, LIVP, TEGCR ####[address] [address] EPL TEG0 %Normal0.0-15.0[facility] Comment on above:Performed By: #### ERTPF, CONNER, LIP, LIVP, TEGCR ####[address] [address] Heparin Therapy: INFORMATION NOT PROVIDEDNormalBethesda North HospitalComment on above: Performed By: #### ERTPF, CONNER, LIP, LIVP, TEGCR ####[address] [address] K (Kinetics) rTEG4.6 minHigh1.0-2.0[facility] North HospitalComment on above:Performed By: #### ERTPF, CONNER, LIP, LIVP, TEGCR ####[facility] Enfvfr[address]ncnj[address] [place] [address] LY30 (Lysis) TEG0 %Normal0-8[facility] North HospitalComment on above: Performed By: #### ERTPF, CONNER, LIP, LIVP, TEGCR ####[facility] [address] [place] [address] [phone] Rapid TEG41.9 okMjj48-72JpiccBethesda North HospitalComment on above:Performed By: #### ERTPF, CONNER, LIP, LIVP, TEGCR ####[place] [address] R(Reaction Time)rTEG1.4 minHigh0.0-1.0[facility] North HospitalComment on above:Performed By: #### ERTPF, CONNER, LIP, LIVP, TEGCR ####[facility] [address] [phone] CommentACT is the only FDA approved component of the Rapid TEG.NormalBethesda North HospitalComment on above:Performed By: #### ERTPF, CONNER, LIP, LIVP, TEGCR ####[address] [address] UA w/Reflex Cultureon 15-16-7316Bxxpgrjyhnc Acid,UrNegativeNormalNEGBethesda North Hospital Comment on above:Performed By: #### ERTPF, CONNER, LIP, LIVP, TEGCR ####[facility] [address] [place] [address] [phone], SemiQt,Ur NegativeNormalNEGBethesda North HospitalComment on above:Performed By: #### ERTPF, CONNER, LIP, LIVP, TEGCR ####[facility] [address]wi[address]yrr[address] [place] [address] [phone]rcy Surprise Valley Community Hospital Comment on above:Result Comment: INTERPRET WITH CAUTION DUE TO INTENSE COLOR OF URINE.Performed By: #### ERTPF, CONNER, LIP, LIVP, TEGCR ####[address] [address] Glucose,Semi-qnt,UrNegativeNormalNEG [facility] North HospitalComment on above:Performed By: #### ERTPF, CONNER, LIP, LIVP, TEGCR ####[address] [address] Hemoglobin, UrNegativeCenter CrossNEGBethesda North Hospital Comment on above:Performed By: #### ERTPF, CONNER, LIP, LIVP, TEGCR ####[address] [phone] Esterase NegativeNormalNEGBethesda North HospitalComment on above:Performed By: #### ERTPF, CONNER, LIP, LIVP, TEGCR ####[address] [phone],UrNegativeNormalNEGBethesda North Hospital Comment on above:Performed By: #### ERTPF, CONNER, LIP, LIVP, TEGCR ####[address] [address] PH,Ur5.1Unlkmg5.0-8.0 [facility] HospitalComment on above:Performed By: #### ERTPF, CONNER, LIP, LIVP, TEGCR ####[address] 43[address] Protein, Semi-qnt,UrNegativeNormalNEGBethesda North HospitalComment on above:Performed By: #### ERTPF, CONNER, LIP, LIVP, TEGCR ####[address], [place] [phone]. [place],Ur1.027 Normal1.005-1.030Bet[facility] North HospitalComment on above:Performed By: #### ERTPF, CONNER, LIP, LIVP, TEGCR ####[address] [address] TurbidityCLEARNormalCLEARBethesda North Hospital Comment on above:Performed By: #### ERTPF, CONNER, LIP, LIVP, TEGCR ####[address] [address] Urobilinogen,UrNormal NormalParkview Health Bryan HospitalComment on above:Performed By: #### ERTPF, CONNER, LIP, LIVP, TEGCR ####[address] [phone] REPORTEDNormalBethesda North Hospital Comment on above:Performed By: #### ERTPF, CONNER, LIP, LIVP, TEGCR ####[address] [phone],Microon 01-20-2018-----NormalBethesda North HospitalComment on above:Performed By: #### ERTPF, CONNER, LIP, LIVP, TEGCR ####[address] [phone] TO 5 HYALINENormal0-8Bet[facility] North HospitalComment on above:Result Comment: Reference range defined for non- centrifuged specimen.Performed By: #### ERTPF, CONNER, LIP, LIVP, TEGCR ####Sarithay [address] [address] Epithelial cells0 TO 2 Normal0-5Bet[facility] North HospitalComment on above:Performed By: #### ERTPF, CONNER, LIP, LIVP, TEGCR ####[facility] [address] [place] [address] RBC Test strip #/vol (U)NoneNormal0-4[facility] HospitalComment on above:Result Comment: Reference range defined for non- centrifuged specimen.Performed By: #### ERTPF, CONNER, LIP, LIVP, TEGCR ####[address] [phone] WBC'sNoneNormal0-5 [facility] HospitalComment on above:Performed By: #### ERTPF, CONNER, LIP, LIVP, TEGCR ####[address] [address] Amorphous SedimentNOT REPORTEDNormalNONEMeBarton Memorial HospitalComment on above:Performed By: #### ERTPF, CONNER, LIP, LIVP, TEGCR ####[address] [address] BacteriaNOT REPORTED NormalMadison HealthComment on above:Performed By: #### ERTPF, CONNER, LIP, LIVP, TEGCR ####[address] [address] CrystalsNOT REPORTEDNormalNONSumma Health Wadsworth - Rittman Medical Centery [facility] Comment on above:Performed By: #### ERTPF, CONNER, LIP, LIVP, TEGCR ####[address] [phone], RenalNOT MDWSYGBWUzzjtg5ApbmhBethesda North HospitalComment on above:Performed By: #### ERTPF, CONNER, LIP, LIVP, TEGCR ####[address] [address] Mucus StrandsNOT REPORTEDNormalNONEMeBarton Memorial HospitalComment on above:Performed By: #### ERTPF, CONNER, LIP, LIVP, TEGCR ####[facility] [address]atnfphavk[address] [place] [address] Other ObservationsNOT REPORTEDNormalNREQMercy Sur[facility] Valley Community HospitalComment on above:Performed By: #### ERTPF, CONNER, LIP, LIVP, TEGCR ####[facility] [address]zcm[address] [place] [address] TrichomonasNOT REPORTEDNormalNONEMeBarton Memorial HospitalComment on above:Performed By: #### ERTPF, CONNER, LIP, LIVP, TEGCR ####[facility] Xt[address]gc[address]emiv[address] [place] [address] YeastNOT REPORTEDNormalNONKeenan Private HospitalComment on above: Performed By: #### ERTPF, CONNER, LIP, LIVP, TEGCR ####[facility] [facility]) [address] [place] [address] XR CHEST PORTABLEon 28-55-8732OG CHEST PORTABLEEXAMINATION:SINGLE XRAY VIEW OF THE CHEST01/20/2018 [...] is recommended.Interpreted by:NADEGE Wrightigned by:Cassie Guzmán MD01/20/18Final [facility] HospitalXR CHEST PORTABLE EXAMINATION:SINGLE XRAY VIEW OF [...] licensed caregiver.Interpreted by:NADEGE Gonzalezigned by:Jonathan Rodríguez MD01/19/18Final Providence HospitalAmylaseon 01-19-2018 Amylase enzyme act/thf824 U/MEorn69-838XvqmxBethesda North HospitalComment on above:Performed By: #### ERTPF, CONNER, LIP, LIVP, TEGCR ####[place] [place] [address] CTA ABDOMEN PELVIS W CONTRASTon 97-51-0018HRD ABDOMEN PELVIS W CONTRASTEXAMINATION:CTA OF THE ABDOMEN [...] on01/19/2018 at 19:43.Interpreted by:NADEGE Velazquezigned by:Chandan Quintanilla MD01/19/18Final resultNormalMerKindred HospitalCalcium, Ionicon 11-80-4035Epdhjiw mass conc1.13 mmol/LNormal1.13-1.33 [facility] HospitalComment on above:Performed By: #### CALLY IOCAL ####[employer] [place] [address] Calcium mass conc1.01 mmol/LLow1.13-1.33[facility] North HospitalComment on above: Performed By: #### CALLY IOCAL ####[address] [address] FFP, Transfuseon 69-91-6094TZH, TransfuseUnit Number [id number] Blood Component Type Fresh Plasma Unit Division 00 Status of Unit TRANSFUSED Transfusion Status OK TO TRANSFUSE Unit Number [id number] Blood Component Type Fresh Plasma Unit Division 00 Status of Unit TRANSFUSED Transfusion Status OK TO TRANSFUSENormalBethesda North HospitalComment on above:Performed By: #### ERTPF, CONNER, LIP, LIVP, TEGCR ####[address] [phone] 01-19-2018 Lipase enzyme act/vol98 U/UAogz45-77HzgazBethesda North HospitalComment on above:Performed By: #### ERTPF, CONNER, LIP, LIVP, TEGCR ####[address] [phone] Profileon 13-41-9790Fuqtjza mass conc2.6 g/dLLow3.5-5.2MRiverside Community HospitalComment on above:Performed By: #### ERTPF, CONNER, LIP, LIVP, TEGCR ####[address] [phone]/Globulin mass ratio1.3 {ratio}Normal 1.0-2.5[facility] HospitalComment on above:Performed By: #### ERTPF, CONNER, LIP, LIVP, TEGCR ####[address] [phone] Phos77 U/TIdoqjw94-407QyctjBethesda North HospitalComment on above:Performed By: #### ERTPF, CONNER, LIP, LIVP, TEGCR ####[address] [phone] enzyme act/vol18 U/LNormal5-41[facility] HospitalComment on above:Performed By: #### ERTPF, CONNER, LIP, LIVP, TEGCR ####[address] [phone] AST enzyme act/vol38 U/LNormal<40[facility] HospitalComment on above:Performed By: #### ERTPF, CONNER, LIP, LIVP, TEGCR ####[address] [address] Bilirubin Ql (U)0.53 mg/dLNormal0.3-1.2MRiverside Community HospitalComment on above:Performed By: #### ERTPF, CONNER, LIP, LIVP, TEGCR ####[address] [address] Bilirubin, Indirect0.38 mg/dLNormal0.00-1.00[facility] HospitalComment on above:Performed By: #### ERTPF, CONNER, LIP, LIVP, TEGCR ####[address] [address] Bilirubin.direct mass conc0.15 mg/dLNormal<0.31[facility] Comment on above:Performed By: #### ERTPF, CONNER, LIP, LIVP, TEGCR ####[address] [address] Protein mass conc4.6 g/dLLow6.4-8.3MRiverside Community HospitalComment on above:Performed By: #### ERTPF, CONNER, LIP, LIVP, TEGCR ####[address] [address] Globulin Calculated mass conc (S)NOT REPORTEDNormal1.5-3.8 [facility] HospitalComment on above:Performed By: #### ERTPF, CONNER, LIP, LIVP, TEGCR ####[address] [address] Open Heart Panelon [id number] REPORTEDNormal 0.0-1.5[facility] HospitalComment on above:Performed By: #### ERTPF, CONNER, LIP, LIVP, TEGCR ####[place] [facility] [address] [place] [address] ModeNOT REPORTEDNormalBethesda North HospitalComment on above:Performed By: #### ERTPF, CONNER, LIP, LIVP, TEGCR ####[facility] [address] [place] [address] 99262 Notification TimeNOT REPORTEDNormalBethesda North HospitalComment on above:Performed By: #### ERTPF, CONNER, LIP, LIVP, TEGCR ####[address] [address] Notification:NOT REPORTEDNormalBethesda North HospitalComment on above:Performed By: #### ERTPF, CONNER, LIP, LIVP, TEGCR ####[address] [address] O2 Device/Flow/%NOT REPORTEDNormalBethesda North HospitalComment on above:Performed By: #### ERTPF, CONNER, LIP, LIVP, TEGCR ####[facility] P[address]vf[address] [place] [address] OxyhemoglobinNOT TFYMACBFJtfrsa20.0-98.0MerKindred HospitalComment on above:Performed By: #### ERTPF, CONNER, LIP, LIVP, TEGCR ####[address] [address] dCT0 Adj'd for TempNOT PEIEGNBJProguk90-31XihavKindred HospitalComment on above: Performed By: #### ERTPF, CONNER, LIP, LIVP, TEGCR ####[address] [address] PEEP/CPAPNOT REPORTEDNormalBethesda North HospitalComment on above:Performed By: #### ERTPF, CONNER, LIP, LIVP, TEGCR ####[address] [address] pH Adjst'd for Temp.NOT REPORTEDNormal7.350-7.450[facility] Comment on above:Performed By: #### ERTPF, CONNER, LIP, LIVP, TEGCR ####[address] [address] dV9 Adjst'd for TempNOT SVSQTXASDrbrdd18-64OqpmcBethesda North HospitalComment on above:Performed By: #### ERTPF, CONNER, LIP, LIVP, TEGCR ####[address] [address] Positive Base ExcessNOT REPORTEDNormal0.0-2.0 [facility] HospitalComment on above:Performed By: #### ERTPF, CONNER, LIP, LIVP, TEGCR ####[address] [address] PSVNOT REPORTEDNormalBethesda North HospitalComment on above:Performed By: #### ERTPF, CONNER, LIP, LIVP, TEGCR ####[address] [address] Pt. PositionNOT REPORTEDNormalBethesda North HospitalComment on above:Performed By: #### ERTPF, CONNER, LIP, LIVP, TEGCR ####[address] [address] Set RateNOT REPORTEDNormalBethesda North HospitalComment on above:Performed By: #### ERTPF, CONNER, LIP, LIVP, TEGCR ####[address] [place] [address] Site DrawnNOT REPORTEDMissouri Baptist Hospital-SullivanalBethesda North HospitalComment on above:Performed By: #### ERTPF, CONNER, LIP, LIVP, TEGCR ####Sarithay [address] [place] [address] Text for RespiratoryNOT REPORTEDMissouri Baptist Hospital-SullivanalBethesda North HospitalComment on above: Performed By: #### ERTPF, CONNER, LIP, LIVP, TEGCR ####Sarithay [address] [place] [address] Total HbNOT MCXPEZTEIullki49.0-16.0Bethesda North HospitalComment on above:Performed By: #### ERTPF, CONNER, LIP, LIVP, TEGCR ####[facility] [address] [address] Total RateNOT REPORTEDNormalBethesda North HospitalComment on above: Performed By: #### ERTPF, CONNER, LIP, LIVP, TEGCR ####[facility] Coapihxikikg[address] [place] [address] VTNOT REPORTEDClermont County HospitalComment on above:Performed By: #### ERTPF, CONNER, LIP, LIVP, TEGCR ####Filomena [address]fkirq[address] [place] [address] Allen Test INFORMATION NOT PROVIDEDNormLima City HospitalComment on above: Performed By: #### OHP, IOCAL ####Sarithay Gtrwzmrirgbl[address] [place] [address] Body Temp.37.0NoMercy Health Fairfield HospitalComment on above:Performed By: #### OHP, IOCAL ####Sarithay Eczytatrhlly[address] [place] [address]92 Carboxy Hgb4.3 %Normal0-5Bethesda North HospitalComment on above:Result Comment: Reference Range:Non-Smokers 0- 2%Average Smoker 2-4%Heavy Smoker <10%Performed By: #### CALLY, IOCAL ####Sarithay Itfzoeqvvfbt4380 [place] [address] Chloride molar kxjd076 mmol/KIezi41-158PvwtvBethesda North HospitalComment on above:Performed By: #### CALLY, IOCAL ####[facility] Ieawwdgnoovs7952 [place] [address] PTJ4RRVCATDDGZD NOT PROVIDEDNormalBethesda North HospitalComment on above:Performed By: #### CALLY, IOCAL ####[facility] Iyzgbranuzfz1042 [place] [address] Glucose mass conc71 mg/zMRwz01-699VcrsuBethesda North HospitalComment on above:Performed By: #### CALLY, IOCAL ####[facility] Uqfcguqblxnp8843 [place] [address] UCX5 molar conc (Bld)11.7 mmol/KWhl36-89XmovdBethesda North HospitalComment on above: Performed By: #### CALLY, IOCAL ####[facility] Vgwhmqdwfcyh7011 [place] [address] Hematocrit Auto Volume Fraction (Bld)36.1 %NormalBethesda North HospitalComment on above:Performed By: #### OHAmrik, IOCAL ####[facility] Bhawfqnomlld2674 [place] [address] Hemoglobin mass conc (Bld)11.7 g/dLNoMercy Health Fairfield HospitalComment on above:Performed By: #### OHAmrik, IOCAL ####[facility] Vhcjaofbfpip1334 [place] [address] Negative Base Lzllqj12.8 mmol/LHigh0.0-2.0[facility] North HospitalComment on above:Performed By: #### OHP, IOCAL ####[facility] Gymuzbgviiqs2727 [place] [address] Oxygen ppres (BldA)214.0 mm[Hg]Ddem90-03SiblsBethesda North HospitalComment on above:Performed By: #### OHP, IOCAL ####Sarithay Wvuuehbkzouc8059 [place] [address] Oxygen saturation in Blood98.7 %Lieyvv35-724RdmfuBethesda North HospitalComment on above:Performed By: #### OHP, IOCAL ####Sarithay Xbbvkwhcimki4732 [place] [address] eFM828.6 bbMcKciyuu78-81 [facility] HospitalComment on above:Performed By: #### OHP, IOCAL ####Sarithay Tndb[address]tum[address] [place] [address] pH (Bld)7.069 [pH]Critically low7.350-7.450Bethesda North HospitalComment on above: Performed By: #### OHP, IOCAL ####Sarithay Toypaiphxkrz4412 [place] [address] Potassium molar conc4.0 mmol/LNormal3.6-5.0[facility] North HospitalComment on above:Performed By: #### OHP, IOCAL ####[facility] Xhpmmwbeitnm9857 [place] [address] Sodium molar tgyf914 mmol/PLic606-580FdwxkBethesda North HospitalComment on above:Performed By: #### OHP, IOCAL ####[facility] Fqvvleyhpeji6861 [place] [address] MethemoglobinNOT REPORTEDNormal0.0-1.5[facility] North HospitalComment on above:Performed By: #### OHP, IOCAL ####[facility] Timzsdqjgczz5148 [place] [address] ModeNOT REPORTEDNormal [facility] North HospitalComment on above:Performed By: #### OHP, IOCAL ####Sarithay Woadumhnnwnq9848 [place] [address] Notification TimeNOT REPORTEDNormalBethesda North HospitalComment on above:Performed By: #### OHP, IOCAL ####Filomena [address]ppjmlxe[address] [place] [phone]:NOT REPORTEDNormalBethesda North HospitalComment on above:Performed By: #### OHP, IOCAL ####Filomena Uojpjxzapxsn[address] [place] [address]38 O2 Device/Flow/%NOT REPORTEDNormalBethesda North HospitalComment on above:Performed By: #### OHP, IOCAL ####Filomena [address]zqjsunps[address] [place] [address] Oxyhemoglobin NOT RTDLEADEUqcfxw83.0-98.0[facility] North HospitalComment on above: Performed By: #### OHP, IOCAL ####Filomena [address]udmvm[address] [place] [address] mYE2 Adj'd for TempNOT NDDPHXJWRcjsar64-70UyilyBethesda North HospitalComment on above:Performed By: #### OHP, IOCAL ####[facility] Ceebdwxhcqhb9452 [place] [address] PEEP/CPAPNOT REPORTED NormalBethesda North HospitalComment on above:Performed By: #### OHP, IOCAL ####[facility] Pwlxyobhcswq2518 [place] [address] pH Adjst'd for Temp.NOT REPORTEDNormal7.350-7.450[facility] Comment on above:Performed By: #### OHP, IOCAL ####[facility] Cmjfouyhbstm2350 [place] [phone] Adjst'd for TempNOT JHOUNEQIZqdhue17-28 [facility] HospitalComment on above:Performed By: #### OHP, IOCAL ####Filomena Vifpjgxxshcm2308 [place] [phone] Base ExcessNOT REPORTEDNormal0.0-2.0[facility] HospitalComment on above: Performed By: #### OHP, IOCAL ####Filomena Ebdzddsmjfdm2617 [place] [phone] REPORTEDNormalBethesda North HospitalComment on above:Performed By: #### OHP, IOCAL ####Filomen[facility] Vtwvyoumbpep0772 [place] [phone]. PositionNOT REPORTEDNormalBethesda North HospitalComment on above:Performed By: #### OHP, IOCAL ####Filomena Ucglmjcpftvc7131 [place] [phone] RateNOT REPORTED NormalBethesda North HospitalComment on above:Performed By: #### OHP, IOCAL ####Filomena Muauhlkgyewp0677 [place] [address] Site DrawnNOT REPORTEDNormalBethesda North HospitalComment on above: Performed By: #### OHP, IOCAL ####Sarithay Xnsvbapbfmvd4430 [place] [address] Text for RespiratoryNOT REPORTEDNormalBethesda North HospitalComment on above:Performed By: #### OHP, IOCAL ####[facility] Ghvboambyind0859 [place] [phone] HbNOT REPORTED Wimpdf18.0-16.0[facility] North HospitalComment on above:Performed By: #### OHP, IOCAL ####[facility] Elhynidgmdoe1721 [place] [address] Total RateNOT REPORTEDNormalBethesda North Hospital Comment on above:Performed By: #### CALLY, IOCAL ####Sarithay Fjlxjjjbfnem2719 [place] [address] VTNOT REPORTEDNormalBethesda North HospitalComment on above:Performed By: #### CALLY, IOCAL ####Sarithay Xwyxognprdhs4682 [place] [address] Allen TestINFORMATION NOT PROVIDEDNormal [facility] HospitalComment on above:Performed By: #### CALLY, IOCAL ####Sarithay Asvypoathbib2654 [place] [address] Body Temp.37.0 NormalBethesda North HospitalComment on above:Performed By: #### CALLY, IOCAL ####Filomena Fgwnunpvtzot7401 [place] [address] Carboxy Hgb4.8 %Normal0-5[facility] HospitalComment on above:Result Comment: Reference Range:Non-Smokers 0-2%Average Smoker 2-4%Heavy Smoker <10% Performed By: #### CALLY, IOCAL ####Filomena Lshuzkfbaymw5164 [place] [address] Chloride molar kdfl435 mmol/TNoygnr02-183YrhquBethesda North HospitalComment on above:Performed By: #### CALLY, IOCAL ####[facility] Zzbenflvhuxz2024 [place] [address] DTK9684DlpkamSuxpkBethesda North HospitalComment on above:Performed By: #### OHAmrik, IOCAL ####[facility] Gylcywmfuuaj6432 [place] [address] Glucose mass conc90 mg/qAMmgfrp63-457XufdhBethesda North HospitalComment on above:Performed By: #### OHP, IOCAL ####[facility] Jfwujsjhbkwq3558 [place] [address] KEV5 molar conc (Bld)15.6 mmol/SLxz90-56XxjuiBethesda North HospitalComment on above:Performed By: #### OHP, IOCAL ####[facility] Kjabrbkxzclh7403 [place] [address] Hematocrit Auto Volume Fraction (Bld)42.6 %NormalBethesda North HospitalComment on above: Performed By: #### OHP, IOCAL ####[facility] Qfsudsvpsvtf2119 [place] [address] Hemoglobin mass conc (Bld)13.9 g/dLNormalBethesda North HospitalComment on above:Performed By: #### OHP, IOCAL ####[facility] Zjsbkggbdjsm6320 [place] [address] Negative Base Vxbcdy46.1 mmol/LHigh0.0-2.0[facility] HospitalComment on above:Performed By: #### OHP, IOCAL ####[facility] Mmvvgjybwiaa9635 [place] [address] Oxygen ppres (BldA)406.0 mm[Hg]Vkrs71-86JofwcBethesda North HospitalComment on above:Performed By: #### OHP, IOCAL ####[facility] Otlqgyjvownx1605 [place] [address] Oxygen saturation in Blood99.5 %Hidndn42-618SrgygBethesda North HospitalComment on above: Performed By: #### OHP, IOCAL ####[facility] Ifbiilkjyvcx4663 [place] [phone] arDrJuyr47-52HqyrmBethesda North HospitalComment on above:Performed By: #### OHP, IOCAL ####[facility] Ylcykftbscvy1134 [place] [address] pH (Bld)7.109 [pH]Critically low7.350-7.450[facility] HospitalComment on above:Performed By: #### OHAmrik, IOCAL ####Sarithay Uwokswsybwaz0951 [place] [address] Potassium molar conc4.2 mmol/LNormal3.6-5.0[facility] HospitalComment on above:Performed By: #### OHAmrik, IOCAL ####Sarithay Puudxnflyxyv0367 [place] [address] Sodium molar mvdv576 mmol/VSlh416-390RurwuKindred HospitalComment on above:Performed By: #### OHAmrik, IOCAL ####Filomena Sxbqacchempf1909 [place] [address] MethemoglobinNOT REPORTEDNormal0.0-1.5MerKindred HospitalComment on above:Performed By: #### OHAmrik, IOCAL ####Filomena Gsvnbgcccbfr4755 [place] [address] ModeNOT REPORTEDNormalBethesda North HospitalComment on above:Performed By: #### OHAmrik, IOCAL ####[facility] Guaxnroqnddv2071 [place] [address] Notification TimeNOT REPORTEDNormalBethesda North HospitalComment on above:Performed By: #### OHP, IOCAL ####[facility] Vtpeawbhdqsl7209 [place] [phone]:NOT REPORTEDNormalBethesda North HospitalComment on above:Performed By: #### OHP, IOCAL ####[facility] Yjcopmcvtfue9904 [place] [address] O2 Device/Flow/%NOT REPORTEDNormalBethesda North HospitalComment on above:Performed By: #### OHP, IOCAL ####[facility] Ufmzpchsmrvv2443 [place] [address] OxyhemoglobinNOT RKQYFUXNCytvho30.0-98.0 [facility] HospitalComment on above:Performed By: #### OHP, IOCAL ####[facility] Rzmhthqttlyj4697 [place] [address] dMR0 Adj'd for TempNOT LSIVJGHBNrtlya83-78YhjqhBethesda North HospitalComment on above: Performed By: #### OHP, IOCAL ####[facility] Ixsiyjqyhphf0887 [place] [address] PEEP/CPAPNOT REPORTEDMissouri Baptist Hospital-SullivanalBethesda North Hospital Comment on above:Performed By: #### OHP, IOCAL ####[facility] Hdpucvgfatrz9657 [place] [address] pH Adjst'd for Temp.NOT REPORTEDNormal 7.350-7.450[facility] HospitalComment on above:Performed By: #### OHP, IOCAL ####[facility] Smpxqmxaprwx2180 [place] [address] gN4 Adjst'd for TempNOT NMZGHSPVCtpblh10-56NhxhbBethesda North HospitalComment on above:Performed By: #### OHP, IOCAL ####[facility] Uemtilcjapwo8621 [place] [address] Positive Base ExcessNOT REPORTEDNormal0.0-2.0 [facility] HospitalComment on above:Performed By: #### OHP, IOCAL ####[facility] Gngyhvjjyfpy2060 [place] [address] PSVNOT REPORTEDNormalBethesda North HospitalComment on above:Performed By: #### OHP, IOCAL ####[facility] Piwkurocrlas2165 [place] [address] Pt. PositionNOT REPORTEDNormalBethesda North Hospital Comment on above:Performed By: #### OHP, IOCAL ####[facility] Ujsohzdkfijg7718 [place], [place] [phone] RateNOT REPORTEDNormalBethesda North HospitalComment on above:Performed By: #### OHP, IOCAL ####[facility] Jnemgzufvmcm4926 [place], [place] [phone] DrawnNOT REPORTED NormalBethesda North HospitalComment on above:Performed By: #### OHP, IOCAL ####[facility] Fdbfxoinkgdg4438 [place], [place] [phone] for RespiratoryNOT REPORTEDNormalBethesda North HospitalComment on above: Performed By: #### OHP, IOCAL ####[facility] Bzdynocbofls5984 [place], [place] [phone] HbNOT IMMCSLXMLwvxgb31.0-16.0MerKindred HospitalComment on above:Performed By: #### OHP, IOCAL ####[facility] Hnbinyxfiuhj5267 [place], [place] [phone] RateNOT REPORTEDNormalBethesda North HospitalComment on above:Performed By: #### OHP, IOCAL ####[facility] Qbkwovmtctxj9461 [place], [place] [phone] REPORTEDNormal [facility] HospitalComment on above:Performed By: #### OHP, IOCAL ####[facility] Kzrsmoxsdskl2298 [place], [place] [phone] Pathologyon 70-87-2455Jxsxwidg Pathology(NOTE)[id number] LABORATORIESCONSULTING PATHOLOGISTS CORPORATIONANATOMIC OTFRBCUIF7331 [place], [place] [address] Fax: SURGICAL PATHOLOGY CONSULTATIONPatient Name: [facility] Rec: [id number] Number: [id number]: 01/19/2018Received: 01/20/2018Reported: 01/21/2018 13:48-- Diagnosis --1. TERMINAL [...] or lesions or perforations are grossly identified. Bible Teacher sections from the larger segment submitted as follows: A terminal ileum resection margin between (proximal), B distalresection margin, C-D in store representative sections from area of theopening, E in store representative section from submucosal hematoma, F ileocecal valve, G tip of appendix bisected, H representativesection from the appendix, I in store representative section from superficialulcerated mucosa, J in store representative section from hyperemic colonmucosa, K one resection margin of smaller fragment, L the othermargin of smaller fragment and in store representative section from the smallerfragment.2. ALEJO MARIEL, SPLEEN 77.3 gram splenic specimen measuring 11 [...] and no masses orlesions are grossly identified. Bible Teacher sections submitted asfollows: A area of laceration, [...] 7 x 4 x 1.5cm maximum thickness. Bible Teacher section from the fibrofattytissue surrounding the larger fragment is submitted in cassette A. Remainder of specimen is returned to original container. Microscopic DescriptionMicroscopic examination performed.NormalBethesda North HospitalComment on above:Performed By: #### PPPVS ####[facility]aHel[facility] Hayes HospitalLfwfvpildvcw2497 [place] [address] TEG, Rapid Citratedon 59-23-3366BWO TEG 113.0 buiCtawdp39-171XvdfaBethesda North HospitalComment on above:Performed By: #### ERTPF, CONNER, LIP, LIVP, TEGCR ####[facility] Hfogjjbjnktw8972 [place] [address] Angle, Rapid TEG52.6 lnyMav34-58FqljwKindred HospitalComment on above:Performed By: #### ERTPF, CONNER, LIP, LIVP, TEGCR ####[facility] Ylfomlfzhspp[address] [place] [address] EPL TEG 1.0 %Normal0.0-15.0MerKindred HospitalComment on above:Performed By: #### ERTPF, CONNER, LIP, LIVP, TEGCR ####[address] [address] Heparin Therapy:UNKNOWNNormalBethesda North HospitalComment on above:Performed By: #### ERTPF, CONNER, LIP, LIVP, TEGCR ####[address] [address] K (Kinetics) rTEG3.6 minHigh1.0-2.0[facility] North HospitalComment on above:Performed By: #### ERTPF, CONNER, LIP, LIVP, TEGCR ####[address] [address] ML15 (Lysis) TEG1.0 %Normal0-8MerKindred HospitalComment on above:Performed By: #### ERTPF, CONNER, LIP, LIVP, TEGCR ####[facility] Wh[address]icdxcxwl[address] [place] [address] MA Rapid TEG 51.4 ihJbm69-71BggncBethesda North HospitalComment on above:Performed By: #### ERTPF, CONNER, LIP, LIVP, TEGCR ####[address] [address] R(Reaction Time)rTEG0.7 minNormal0.0-1.0MerFitzgibbon HospitalMylo Medical CenterComment on above:Performed By: #### ERTPF, CONNER, LIP, LIVP, TEGCR ####Filomena [address]jas[address] [place] [address] TEG CommentACT is the only FDA approved component of the Rapid TEG.NormalBethesda North HospitalComment on above:Performed By: #### ERTPF, CONNER, LIP, LIVP, TEGCR ####Filomena Izlzxflcihmv[address] [place] [address] Trauma Profile on 23-30-5779Erbq nitrogen mass conc6 mg/dLNormal6-20[facility] North HospitalComment on above:Result Comment: QA FLAGS AND/OR RANGES MODIFIED BY DEMOGRAPHIC UPDATE ON 01/19 AT 1953Performed By: #### ERTPF, CONNER, LIP, LIVP, TEGCR ####[address] [address] Anion gap 3 molar conc13 mmol/LNormal9-17[facility] North HospitalComment on above:Performed By: #### ERTPF, CONNER, LIP, LIVP, TEGCR ####Filomena [address] [address] Chloride molar nmey317 mmol/LNormal 98-107[facility] North HospitalComment on above:Performed By: #### ERTPF, CONNER, LIP, LIVP, TEGCR ####Sarithaernie [address] [address] HM6 molar conc17 mmol/ZVnp49-29UaufhBethesda North Hospital Comment on above:Performed By: #### ERTPF, CONNER, LIP, LIVP, TEGCR ####Filomena Tarjoeykymvg8370 [place] [address] Creatinine mass conc0.55 mg/dLLow0.70-1.20[facility] HospitalComment on above:Performed By: #### ERTPF, CONNER, LIP, LIVP, TEGCR ####[place] [place] [address] Ethanol mass sbul293 mg/dLHigh<10[facility] North HospitalComment on above:Performed By: #### ERTPF, CONNER, LIP, LIVP, TEGCR ####[address] [address] Ethanol percent0.277 % NormalBethesda North HospitalComment on above:Performed By: #### ERTPF, CONNER, LIP, LIVP, TEGCR ####[address] [address] Glucose mass conc95 mg/uHCdzglj15-36ZvvgyRiverside Community HospitalComment on above:Performed By: #### ERTPF, CONNER, LIP, LIVP, TEGCR ####[address] [address] Potassium molar conc4.7 mmol/LNormal3.7-5.3Mohiohealth grove city methodist hospitaly [facility] Community HospitalComment on above:Performed By: #### ERTPF, CONNER, LIP, LIVP, TEGCR ####[address] [address] Sodium molar fnwx306 mmol/EEtl695-290DvqhrBethesda North HospitalComment on above:Performed By: #### ERTPF, CONNER, LIP, LIVP, TEGCR ####[place] [place] [address] aPTT Coag time (Bld)26.2 sTexxkh61.5-30.5[facility] HospitalComment on above:Performed By: #### ERTPF, CONNER, LIP, LIVP, TEGCR ####[address] [address] INR Coag RelTime (PPP)1.1 {INR}Normal [facility] North HospitalComment on above:Result Comment: Therapeutic Range: Moderate Anticoagulant Intensity: INR = 2.0-3.0 High Anticoagulant Intensity: INR = 2.5-3.5Performed By: #### ERTPF, CONNER, LIP, LIVP, TEGCR ####[address] [address] Prothrombin time (PT) Coag time (PPP)11.9 sNormal9.0-12.0[facility] Comment on above:Performed By: #### ERTPF, CONNER, LIP, LIVP, TEGCR ####[address] [address] Erythrocyte distribution width Auto Ratio (RBC)14.3 %Dowopt90.8-14.4[facility] Comment on above:Performed By: #### ERTPF, CONNER, LIP, LIVP, TEGCR ####[address] [address] Hematocrit Auto Volume Fraction (Bld)42.9 %Kiruha71.7-50.3MRiverside Community HospitalComment on above:Performed By: #### ERTPF, CONNER, LIP, LIVP, TEGCR ####[address] [address] Hemoglobin mass conc (Bld)14.0 g/dL Rutnhg94.0-17.0[facility] HospitalComment on above:Performed By: #### ERTPF, CONNER, LIP, LIVP, TEGCR ####[address] [address] MCH Auto Entitic mass (RBC)32.0 phFptqdh43.2-33.5[facility] HospitalComment on above:Performed By: #### ERTPF, CONNER, LIP, LIVP, TEGCR ####[address] [address] MCHC Auto mass conc (RBC)32.6 g/rXUiupkk97.4-34.8[facility] Comment on above:Performed By: #### ERTPF, CONNER, LIP, LIVP, TEGCR ####[address] [address] MCV Auto Entitic volume (RBC)97.9 yNSjoxlk75.6-102.9[facility] HospitalComment on above: Performed By: #### ERTPF, CONNER, LIP, LIVP, TEGCR ####[address] [phone] Automated0.0 per 100 WBCNormal0.0 [facility] HospitalComment on above:Performed By: #### ERTPF, CONNER, LIP, LIVP, TEGCR ####[address] 43[address] Platelet mean volume Auto Entitic volume (Bld)9.4 fLNormal8.1-13.5 [facility] HospitalComment on above:Performed By: #### ERTPF, CONNER, LIP, LIVP, TEGCR ####[address] 43[address] Platelets Auto #/vol (Bld)193 10*3/oFXbhuha158-868GthmdBethesda North HospitalComment on above:Performed By: #### ERTPF, CONNER, LIP, LIVP, TEGCR ####[address] [address] RBC Auto #/vol (Bld)4.38 10*6/uLNormal4.21-5.77[facility] Comment on above:Performed By: #### ERTPF, CONNER, LIP, LIVP, TEGCR ####[address] [address] WBC Auto #/vol (Bld)3.6 10*3/uLNormal3.5-11.3[facility] HospitalComment on above:Performed By: #### ERTPF, CONNER, LIP, LIVP, TEGCR ####[address] [address] Body Temp.37.0NormLima City HospitalComment on above:Performed By: #### ERTPF, CONNER, LIP, LIVP, TEGCR ####[address] [address] Carboxy Hgb5.7 %High0-5 [facility] HospitalComment on above:Result Comment: Reference Range:Non-Smokers 0-2%Average Smoker 2-4%Heavy Smoker <10%Performed By: #### ERTPF, CONNER, LIP, LIVP, TEGCR ####[address] [phone] NOT PROVIDEDNormLima City HospitalComment on above:Performed By: #### ERTPF, CONNER, LIP, LIVP, TEGCR ####[address] [address] HCO3 molar conc (Bld) 18.9 mmol/LRoe69-43OfuraBethesda North HospitalComment on above:Performed By: #### ERTPF, CONNER, LIP, LIVP, TEGCR ####[address] [address] Negative Base Lrqpwu24.2 mmol/LHigh0.0-2.0[facility] HospitalComment on above:Performed By: #### ERTPF, CONNER, LIP, LIVP, TEGCR ####[address] [address] Oxygen ppres (BldA)40.2 mm[Hg]Diwxeo83-24NcvjnBethesda North HospitalComment on above:Performed By: #### ERTPF, CONNER, LIP, LIVP, TEGCR ####Sarithay She[address] [place] [address] Oxygen saturation in Blood58.1 %Low60.0-85.0Bethes[facility] North HospitalComment on above: Performed By: #### ERTPF, CONNER, LIP, LIVP, TEGCR ####Sarithay Cavhy[address]vroei[address] [place] [phone]rofBethesda North HospitalComment on above:Performed By: #### ERTPF, CONNER, LIP, LIVP, TEGCR ####Filomena Sjvyigdczt[address] [place] [id number] pH (Bld)7.157 [pH]Critically low7.320-7.420Bethesda North HospitalComment on above: Performed By: #### ERTPF, CONNER, LIP, LIVP, TEGCR ####[facility] [address]kfkahbihuy[address] [place], [place] [address] [phone] BankBIL FOR SERVICES PERFORMED NormalBethesda North HospitalComment on above:Performed By: #### ERTPF, CONNER, LIP, LIVP, TEGCR ####[address] 43[address] (cont.)NOT REPORTEDNormalMerKindred HospitalComment on above:Performed By: #### ERTPF, CONNER, LIP, LIVP, TEGCR ####[facility] Uemvimfpmmsz[address] [place], [place] [phone] TestNOT REPORTED NormalBethesda North HospitalComment on above:Performed By: #### ERTPF, CONNER, LIP, LIVP, TEGCR ####[facility] Kouwjykszabi[address] [place] [address] [phone], AmerNOT REPORTEDNormal>60[facility] HospitalComment on above:Performed By: #### ERTPF, CONNER, LIP, LIVP, TEGCR ####[facility] [address]qzd[address] [place] [address] GFR,non AmerNOT REPORTEDNormal>60[facility] HospitalComment on above:Performed By: #### ERTPF, CONNER, LIP, LIVP, TEGCR ####[facility] [address] [place] [address] MethemoglobinNOT REPORTEDNormal0.0-1.5MerKindred HospitalComment on above:Performed By: #### ERTPF, CONNER, LIP, LIVP, TEGCR ####[facility] [address] [place] [address] ModeNOT REPORTEDNormalMerKindred HospitalComment on above:Performed By: #### ERTPF, CONNER, LIP, LIVP, TEGCR ####[facility] [address] [place] [address]152 Notification TimeNOT REPORTEDNormalBethesda North HospitalComment on above:Performed By: #### ERTPF, CONNER, LIP, LIVP, TEGCR ####[facility] [address] [place] [address] Notification: NOT REPORTEDNormalMercy Surprise Valley Community HospitalComment on above:Performed By: #### ERTPF, CONNER, LIP, LIVP, TEGCR ####[facility] Ltzmhuxosjzl4839 [place] [address] O2 Device/Flow/%NOT REPORTEDNormalBethesda North HospitalComment on above:Performed By: #### ERTPF, CONNER, LIP, LIVP, TEGCR ####[facility] [address] [place] [address] Oxyhemoglobin NOT WADPBSKEMhljes96.0-98.0Bethesda North HospitalComment on above: Performed By: #### ERTPF, CONNER, LIP, LIVP, TEGCR ####[facility] Ltmnin[address]ut[address] [place] [address] Hrq3 Adj'd for Temp.NOT REPORTEDNormal 39-55Bet[facility] North HospitalComment on above:Performed By: #### ERTPF, CONNER, LIP, LIVP, TEGCR ####[facility] [address]ie[address] [place] [address] 4360 PEEP/CPAPNOT REPORTEDNormalBethesda North HospitalComment on above:Performed By: #### ERTPF, CONNER, LIP, LIVP, TEGCR ####[facility] [address]xh[address]ke[address] [place] [address] pH Adjst'd for Temp.NOT REPORTEDNormal7.320-7.420Bethesda North HospitalComment on above: Performed By: #### ERTPF, CONNER, LIP, LIVP, TEGCR ####[address] [address] rP4 Adj'd for Temp.NOT REPORTEDNormal 30-50Bethes[facility] North HospitalComment on above:Performed By: #### ERTPF, CONNER, LIP, LIVP, TEGCR ####[address] 4360 Positive Base ExcessNOT REPORTEDNormal0.0-2.0Bethesda North HospitalComment on above:Performed By: #### ERTPF, CONNER, LIP, LIVP, TEGCR ####[address] [address] PSVNOT REPORTEDNormalBethesda North HospitalComment on above:Performed By: #### ERTPF, CONNER, LIP, LIVP, TEGCR ####[facility] [address] [place] [address] Pt. PositionNOT REPORTEDNormalMerKindred HospitalComment on above:Performed By: #### ERTPF, CONNER, LIP, LIVP, TEGCR ####[facility] Qicojznbzvod[address]50 [place] [address] Set RateNOT REPORTED NormalOhio State Harding Hospitalcy [facility] Community HospitalComment on above:Performed By: #### ERTPF, CONNER, LIP, LIVP, TEGCR ####[facility] Oyfxdvbrzola8185 [place] 43[address] [phone] DrawnNOT REPORTEDNormalMerKindred Hospital Comment on above:Performed By: #### ERTPF, CONNER, LIP, LIVP, TEGCR ####[facility] Ykjmcwaaxmqv[address] [place] [address] Staging:NOT REPORTED NormalOhio State Harding Hospitalcy [facility] Community HospitalComment on above:Performed By: #### ERTPF, CONNER, LIP, LIVP, TEGCR ####[facility] Vuzxzmrpnree[address] [place] [address] [phone] for RespiratoryNOT REPORTEDNormalBethesda North HospitalComment on above:Performed By: #### ERTPF, CONNER, LIP, LIVP, TEGCR ####[facility] [address] [place] [address] Total HbNOT REPORTED Wugamy29.0-16.0MerKindred HospitalComment on above:Performed By: #### ERTPF, CONNER, LIP, LIVP, TEGCR ####[facility] Z[address]klgwxtmyu[address] [place] [address] Total RateNOT REPORTEDNormalBethesda North HospitalComment on above:Performed By: #### ERTPF, CONNER, LIP, LIVP, TEGCR ####[facility] [address]vsu[address] [place] [address] VTNOT REPORTEDNormal Bethesda North HospitalComment on above:Performed By: #### ERTPF, CONNER, LIP, LIVP, TEGCR ####Filomena [address] [place], [place] [address] Type + Screenon [id number] + ScreenSample Expiration 01/22/2018 Arm Band Number [id number] ABO/Rh(D) A POSITIVE Antibody Screen NEGATIVE Unit Number [id number] Blood Component Type Leukocyte Reduced Red Cell Unit Division 00 Status of Unit TRANSFUSED Transfusion Status OK TO TRANSFUSE Crossmatch Result COMPATIBLE Unit Number [id number] Blood Component Type Leukocyte Reduced Red Cell Unit Division 00 Status of Unit REL FROM ALLOC Transfusion Status OK TO TRANSFUSE Crossmatch Result COMPATIBLE Unit Number [id number] Blood Component Type Leukocyte Reduced Red Cell Unit Division 00 Status of Unit REL FROM ALLOC TransfusionStatus OK TO TRANSFUSE Crossmatch Result COMPATIBLE Unit Number [id number] Blood Component Type Leukocyte Reduced Red Cell Unit Division 00 Status of Unit REL FROM ALLOC Transfusion Status OK TO TRANSFUSE Crossmatch Result COMPATIBLE Unit Number [id number] Blood Component Type Leukocyte Reduced Red Cell Unit Division 00 Status of Unit TRANSFUSED Transfusion Status OK TO TRANSFUSE CrossmatchResult COMPATIBLE Unit Number [id number] Blood Component Type Leukocyte Reduced Red Cell Unit Div ision 00 Status of Unit REL FROM ALLOC Transfusion Status OK TO TRANSFUSE Crossmatch Result COMPATIBLENormalMercy Surprise Valley Community HospitalComment on above:Performed By: #### ERTPF, CONNER, LIP, LIVP, TEGCR ####Filomena [address] [place], [place] [phone] Vital Signs Date TimeVital SignValuePerforming BnyzodhioXuqajmws20-98-5073 13:28-0400Body tinevi423.8 Jorge Shepherd DPM Work Phone: [facility] HospitalZkorevrpwy68-76-4775 13:28-0400Body mass index (BMI) [Ratio]19.08 kg/s7KjzmthxJl Shepherd DPM Work Phone: [facility] HospitalRppwmkbcxy46-32-3862 13:28-040Body esqyqo48.33 kgJl Shepherd DPM Work Phone: [place] [address]Wuhgknpqvm93-95-2992 14:12-0400Body mass index (BMI) [Ratio]19.08 kg/t5Lienuk Caden DO Work Phone: [place] [address]Eedaexjffz98-82-2235 14:12-0400Body upcmgv93.33 kgLeanne Caden DO Work Phone: [place] [address]Jkqnsedeyz41-46-4522 14:12-0400Diastolic blood atmtlgec19 mm[Hg]Kaela Caden DO Work Phone: [place] [address]Caldpwlagh02-27-3516 14:12-0400Heart rate57 /min Kaela Caden DO Work Phone: [place] [address]Potaihmoru66-85-6466 14:12-8943JuY6% (BldA) [Mass fraction]91 %Kaela Caden DO Work Phone: [facility] HospitalComment on above:3L VZ21-56-8440 14:12-0400Systolic blood gfcfquih929 mm[Hg]Kaela Caden DO Work Phone: [place] [address]Thgcocvbwq09-17-7395 13:04-0400Body mass index (BMI) [Ratio]19.14 kg/m2DENIA Carpenter MD Work Phone: [place] [address]-19-2025 13:04-0400Body temperature 98.91 [degF]DENIA Carpenter MD Work Phone: [place] [address]-19-2025 13:04-0400Body ehywnp16.5 kgDENIA Carpenter MD Work Phone: 1(327) 249-898362 [address]19-2025 13:04-0400Diastolic blood xefsooii82 mm[Hg]DENIA Carpenter MD Work Phone: [place] [address]-19-2025 13:04-0400Heart rate83 /min DENIA Carpenter MD Work Phone: [place] [address]-19-2025 13:04-0400Respiratory rate 20 /FranciscaDENIA Carpenter MD Work Phone: [facility]08-19-2025 13:04-9429CjA6% (BldA) [Mass fraction]99 %NA Ron VO Work Phone: [facility] HealthComment on above:O2 at 3L/SE08-08-1763 13:04-0400Systolic blood jaubfeic218 mm[Hg]NA Ron VO Work Phone: [facility]06-10-2025 10:39-0400Body mpkbqy885.8 cmNancyc Reggie VO Work Phone: [facility] HospitalTmewffqmec33-92-5825 10:39-0400Body mass index (BMI) [Ratio]18.37 kg/m2Gildardo Lacy MD Work Phone: [facility] HospitalLwzplvzbxe13-89-5411 10:39-0400Body temperature 97.81 [degF]Gildardo Lacy MD Work Phone: [facility] HospitalQskyxyonus19-19-3323 10:39-0400Body .06 kgGildardo Lacy MD Work Phone: [facility] HospitalKotdgzhxzl16-97-4791 10:39-0400Diastolic blood rfubmvjp40 mm[Hg]Gildardo Lacy MD Work Phone: [facility] HospitalCqotjefptr06-25-1330 10:39-0400Heart rate95 /min Gildardo Lacy MD Work Phone: [facility] HospitalYapmrlcrsc51-59-3411 10:39-0400Respiratory rate18 /minGildardo Lacy MD Work Phone: [facility] HospitalKtcmljxhua83-68-3888 10:39-0156KoY5% (BldA) [Mass fraction]98 %Gildardo Lacy MD Work Phone: [facility] HospitalVaiafgzmdr56-02-0388 10:39-0400Systolic blood iezdlfxz738 mm[Hg]Gildardo Lacy MD Work Phone: [facility] HospitalXfikuifqej72-28-5723 13:17-0400Body rulzat284.8 cmHassan Neely MD Work Phone: 1([phone] [place], [place] [address]970105-12-2025 13:17-0400 Body mass index (BMI) [Ratio]19.08 kg/x0LpxqbiCarmen Neely MD Work Phone: [phone])[address]05-12-2025 13:17-0400 Body .33 kgCarmen Neely MD Work Phone: 1(077)41442 [address]05-12-2025 13:17-0400 Diastolic blood haazbptw14 mm[Hg]Carmen Neely MD Work Phone: [phone])[address]05-12-2025 13:17-0400 Heart rate86 /minCarmen Neely MD Work Phone: 1(662)[address]05-12-2025 13:17-0400 Systolic blood labmpjla076 mm[Hg]Carmen Neely MD Work Phone: [phone])[address]05-08-2025 11:37-0400 Body mjmmyf958.8 cmGildardo Lacy MD Work Phone: [facility] HospitalAoeebwjzwd74-49-0911 11:37-0400Body mass index (BMI) [Ratio]20.52 kg/m2Gildardo Lacy MD Work Phone: [facility] HospitalAilfxnlefh32-63-2569 11:37-0400Body temperature 98.2 [degF]Gildardo Lacy MD Work Phone: [facility] HospitalWjgduejyha68-54-4004 11:37-0400Body cdfigz07.86 kgGildardo Lacy MD Work Phone: [facility] HospitalQpfybzpzpr53-87-6749 11:37-0400Diastolic blood mm[Hg]Gildardo Lacy MD Work Phone: [facility] HospitalOmiusdqiee66-11-3800 11:37-0400Heart irsk517 /min Gildardo Lacy MD Work Phone: [facility] HospitalBjyolwcwgy94-92-1601 11:37-0400Respiratory rate20 /minGildardo Lacy MD Work Phone: [facility] HospitalAlbpoxvvjo42-39-0636 11:37-4385XdG4% (BldA) [Mass fraction]97 %Gildardo Lacy MD Work Phone: [facility] HospitalIrppdcopjh39-27-2911 11:37-0400Systolic blood tkmxvizr041 mm[Hg]Gildardo Lacy MD Work Phone: [facility] HospitalSppntjbwmx14-77-7158 10:04-0400Body mass index (BMI) [Ratio]17.91 kg/m2Lisa Galohholz EXTRUSION PROCESS OPERATOR Work Phone: [facility] HospitalAxatytqghp90-04-1286 10:04-0400Body temperature 98.4 [degF]Rashida Lanaz EXTRUSION PROCESS OPERATOR Work Phone: [facility] HospitalHsvzqqzsci74-32-4248 10:04-0400Body .61 kgLisa Galohyuliz EXTRUSION PROCESS OPERATOR Work Phone: [facility] HospitalEjyksbtosk91-70-9624 10:04-0400Diastolic blood lhtmistg12 mm[Hg]Rashiad Aichholz EXTRUSION PROCESS OPERATOR Work Phone: [facility] HospitalIvwpzjtcbc16-29-0554 10:04-0400Heart rate97 /min Rashida Aichholz EXTRUSION PROCESS OPERATOR Work Phone: [facility] HospitalTxcvslnnwo58-89-3965 10:04-0400Respiratory rate20 /minLisa Galohyuliz EXTRUSION PROCESS OPERATOR Work Phone: [facility] HospitalLlhavljwra83-34-0421 10:04-5557WmA2% (BldA) [Mass fraction]97 %Rashida Galohyuliz EXTRUSION PROCESS OPERATOR Work Phone: [facility] HospitalHqhxkryghf74-15-5165 10:04-0400Systolic blood rhewlwup557 mm[Hg]Rashida Galohyuliz EXTRUSION PROCESS OPERATOR Work Phone: [facility] HospitalYknumvfloz98-77-0583 13:01-0500Body mass index (BMI) [Ratio]18.79 kg/m2DENIA Carpenter MD Work Phone: [facility]02-18-2025 13:01-0500Body temperature 97.9 [degF]DENIA Carpenter MD Work Phone: [facility]02-18-2025 13:01-0500Body uxrdig56.4 kgNA Ron VO Work Phone: [facility]02-18-2025 13:01-0500Diastolic blood mm[Hg]NA Ron VO Work Phone: [facility]02-18-2025 13:01-0500Heart rate95 /min DENIA Carpenter MD Work Phone: [facility]02-18-2025 13:01-0500Respiratory rate 18 /Francisca Ron VO Work Phone: [facility]02-18-2025 13:01-2901FtV0% (BldA) [Mass fraction]96 %DENIA Carpenter MD Work Phone: [facility]02-18-2025 13:01-0500Systolic blood ajwihmhc779 mm[Hg]DENIA Carpenter MD Work Phone: [facility]02-07-2025 14:47-0500Body .8 cmHebert Miguel MD Work Phone: [facility]02-07-2025 14:47-0500Body mass index (BMI) [Ratio]20.09 kg/f6SppcrHebert Miguel MD Work Phone: [facility]02-07-2025 14:47-0500Body coxiaj71.5 kgHebert Miguel MD Work Phone: [facility]01-29-2025 13:32-0500Body .8 cmGildardo Lacy MD Work Phone: [facility] HospitalAbradcotwp99-56-9390 13:32-0500Body mass index (BMI) [Ratio]18.37 kg/m2Gildardo Lacy MD Work Phone: [facility] HospitalBmimsccmra13-84-1523 13:32-0500Body temperature 97.81 [degF]Gildardo Lacy MD Work Phone: [facility] HospitalNxfubmhkoy54-80-2833 13:32-0500Body owzcbq88.06 kgGildardo Lacy MD Work Phone: [facility] HospitalIxwcbsmgvz78-28-7003 13:32-0500Diastolic blood zwgdhkdi22 mm[Hg]Gildardo Lacy MD Work Phone: 1([phone] [place], [place] [address]Wkcrihhzoq54-48-6599 13:32-0500Heart drdi318 /min Gildardo Lacy MD Work Phone: 1([phone] [place], [place] [address]Wbuzxlmici82-76-7469 13:32-0500Respiratory rate24 /minGildardo Lacy MD Work Phone: 1(087)205-[address] [place], [place] [address]Ebudsmfsts86-15-8416 13:32-5901SyP8% (BldA) [Mass fraction]90 %Gildardo Lacy MD Work Phone: [facility] HospitalOxcbebxfmr26-60-3286 13:32-0500Systolic blood hidhlnac103 mm[Hg]Gildardo Lacy MD Work Phone: [facility] HospitalPultzidkvq93-68-4394 13:24-0500Body xvyiyd973.8 cmGildardo Lacy MD Work Phone: [facility] HospitalQwjkuvzswu62-99-3603 13:24-0500Body mass index (BMI) [Ratio]19.8 kg/m2Gildardo Lacy MD Work Phone: [phone] [place], [place] [address]Pgapeiefqt87-22-8400 13:24-0500Body temperature 98.4 [degF]Gildardo Lacy MD Work Phone: [facility] HospitalPtcvyqvuwr99-78-0172 13:24-0500Body vxhmja04.6 kg Gildardo Lacy MD Work Phone: [facility] HospitalCvxmbjqymy68-24-3297 13:24-0500Diastolic blood lyhveoam56 mm[Hg]Gildardo Lacy MD Work Phone: [facility] HospitalNriqiittwh94-98-4705 13:24-0500Heart cbdc836 /min Gildardo Lacy MD Work Phone: [facility] HospitalFijlfyyqmb33-09-7633 13:24-0500Respiratory rate20 /minGildardo Lacy MD Work Phone: [facility] HospitalMiudlyvwfo65-92-1151 13:24-6836AmO3% (BldA) [Mass fraction]92 %Gildardo Lacy MD Work Phone: [facility] HospitalAeghxrmqqg75-92-1665 13:24-0500Systolic blood lajtyjvm063 mm[Hg]Gildardo Lacy MD Work Phone: [facility] HospitalEgadyuovzc75-86-7931 09:56-0400Body braqyx626.8 cmGildardo Lacy MD Work Phone: 1([phone] [place], [place] [address]Ixahydxzli02-44-0090 09:56-0400Body mass index (BMI) [Ratio]18.65 kg/m2Gildardo Lacy MD Work Phone: [facility] HospitalMocdpadael22-88-9178 09:56-0400Body temperature 97.81 [degF]Gildardo Lacy MD Work Phone: [facility] HospitalZkwxracwlr38-33-7224 09:56-0400Body vucwgs04.97 kgGildardo Lacy MD Work Phone: [facility] HospitalFfvwvtogrs05-27-2664 09:56-0400Diastolic blood mpoekqyx21 mm[Hg]Gildardo Lacy MD Work Phone: [facility] HospitalOzsoxveton47-88-1805 09:56-0400Heart rate92 /min Gildardo Lacy MD Work Phone: [place] [address]Gqmffcrrfr24-26-4641 09:56-0400Respiratory rate18 /minGildardo Lacy MD Work Phone: [facility] HospitalEcbngbvivr92-79-4153 09:56-6317TsC5% (BldA) [Mass fraction]97 %Gildardo Lacy MD Work Phone: [facility] HospitalRobhkxysao78-14-3476 09:56-0400Systolic blood jsfvtpli787 mm[Hg]Gildardo Lacy MD Work Phone: [facility] HospitalYuhgubkvyn09-61-6049 09:35-0400Body pdynyd407.8 cmMasofia Hood PA Work Phone: [facility] HospitalXeerwvhpzi16-13-0243 09:35-0400Body mass index (BMI) [Ratio]20.09 kg/b4Zvjdcmg Hood PA Work Phone: [facility] HospitalYqclydkdwt81-98-0137 09:35-0400Body fjwiue30.5 kg Cassie Tatum PA Work Phone: [facility] HospitalHwapofjyoy05-70-6471 14:55-0400Body ssaena890.7 cmEsdras Cash MD Work Phone: [facility]08-20-2024 14:55-0400Body mass index (BMI) [Ratio]19.32 kg/t2MwtzcEsdras Cash MD Work Phone: [facility]08-20-2024 14:55-0400Body temperature 98.2 [degF]Esdras Cash MD Work Phone: [facility]08-20-2024 14:55-0400Body pecsst45.69 kgEsdras Cash MD Work Phone: [facility]08-20-2024 14:55-0400Diastolic blood mtxchozs73 mm[Hg]Esdras Cash MD Work Phone: [facility]08-20-2024 14:55-0400Heart nzie298 /minEsdras Cash MD Work Phone: [facility]08-20-2024 14:55-0400Respiratory rate 18 /minEsdras Cash MD Work Phone: [facility]08-20-2024 14:55-1259BuW0% (BldA) [Mass fraction]95 %Esdras Cash MD Work Phone: [facility]08-20-2024 14:55-0400Systolic blood zbtjrjyg627 mm[Hg]Esdras Cash MD Work Phone: [facility]08-20-2024 14:35-0400Body mass index (BMI) [Ratio]19.38 kg/m2DENIA Carpenter MD Work Phone: [facility]08-20-2024 14:35-0400Body temperature 98.2 [degF]DENIA Carpenter MD Work Phone: [facility]08-20-2024 14:35-0400Body mqcxta98.9 kgDENIA Carpenter MD Work Phone: [facility]08-20-2024 14:35-0400Diastolic blood hyetlcle12 mm[Hg]DENIA Carpenter MD Work Phone: [facility]08-20-2024 14:35-0400Heart nelz060 /FranciscaDENIA Carpenter MD Work Phone: [facility]08-20-2024 14:35-0400Respiratory rate 18 /FranciscaDENIA Carpenter MD Work Phone: [facility]08-20-2024 14:35-1793UuR0% (BldA) [Mass fraction]95 %DENIA Carpenter MD Work Phone: [facility]08-20-2024 14:35-0400Systolic blood zjcgonap790 mm[Hg]DENIA Carpenter MD Work Phone: [facility]07-16-2024 10:29-0400Body qitiio633.8 cmCarmen Neely MD Work Phone: [facility]07-16-2024 10:29-0400 Body mass index (BMI) [Ratio]18.65 kg/a7CilbpkCarmen Neely MD Work Phone: [facility]07-16-2024 10:29-0400 Body oprxdz22.97 kgCarmen Neely MD Work Phone: [facility]07-16-2024 10:29-0400 Diastolic blood bkmmxabe44 mm[Hg]Carmen Neely MD Work Phone: [facility]07-16-2024 10:29-0400 Heart rate88 /minHaflory Neely MD Work Phone: [facility]07-16-2024 10:29-0400 Systolic blood auqqdmrv838 mm[Hg]Carmen Neely MD Work Phone: [facility]04-16-2024 14:20-0400 Body ntzooo436.7 cmEsdras Cash MD Work Phone: [facility]04-16-2024 14:20-0400Body temperature 97.5 [degF]Esdras Cash MD Work Phone: [place] [address]-16-2024 14:20-0400Body haerua25.7 kgEsdras Cash MD Work Phone: [facility]04-16-2024 14:20-0400Diastolic blood mm[Hg]Esdras Cash MD Work Phone: [facility]04-16-2024 14:20-0400Heart wjgg115 /minEsdras Cash MD Work Phone: [place] [address]-16-2024 14:20-0400Respiratory rate 18 /minEsdras Cash MD Work Phone: [place] [address]-16-2024 14:20-0771MsC2% (BldA) [Mass fraction]94 %Esdras Cash MD Work Phone: [place] [address]-16-2024 14:20-0400Systolic blood sexzdvoh389 mm[Hg]Esdras Cash MD Work Phone: [place] [address]-16-2024 14:00-0400Body mass index (BMI) [Ratio]21.2 kg/m2DENIA Carpenter MD Work Phone: [place] [address]-16-2024 14:00-0400Body temperature 98.49 [degF]DENIA Carpenter MD Work Phone: [facility]04-16-2024 14:00-0400Diastolic blood qvewlftl48 mm[Hg]DENIA Carpenter MD Work Phone: [facility]04-16-2024 14:00-0400Heart uqfc170 /Francisca Ron VO Work Phone: [facility]04-16-2024 14:00-8747UkA5% (BldA) [Mass fraction]93 %NA Ron VO Work Phone: [facility]04-16-2024 14:00-0400Systolic blood kpuiumyc914 mm[Hg]DENIA Carpenter MD Work Phone: [facility]01-03-2024 11:18-0500Body .8 cmCarmen Neely MD Work Phone: [facility]01-03-2024 11:18-0500 Body mass index (BMI) [Ratio]21.67 kg/a4CbkpfqCarmen Neely MD Work Phone: [facility]01-03-2024 11:18-0500 Body nyrqjx66.49 kgCarmen Neely MD Work Phone: [facility]01-03-2024 11:18-0500 Diastolic blood gznmvulq30 mm[Hg]Carmen Neely MD Work Phone: [facility]01-03-2024 11:18-0500 Heart rate72 /minCarmen Neely MD Work Phone: [facility]01-03-2024 11:18-0500 Systolic blood vfcvbilm108 mm[Hg]Carmen Neely MD Work Phone: [facility]02-07-2023 10:18-0500 Body mdtive152.8 cmGildardo Butler Naderer Work Phone: 1([phone]-Zujbh [facility] 250 DO Work Phone: 1(592) 660-211302-07-2023 10:18-0500Body mass index (BMI) [Ratio] 25.83 kg/m2Marc A Naderer Work Phone: mp500-9397NH-Bonel [facility] 250 DO Work Phone: 1(520) 877-542102-07-2023 10:18-0500Body surface area Derived from formula2 m2Marc A Naderer Work Phone: mp248-6789PX-Lbbcz [facility] 250 DO Work Phone: 1(668) 280-465102-07-2023 10:18-0500Body oxgcnk39.65 kgMarc A Naderer Work Phone: mp040-8376LH-[facility]qwqMel[facility] DO Work Phone: 1(187) 102-606402-07-2023 10:18-0500Diastolic blood kbonaclr85 mm[Hg] Gildardo Carrie Naderer Work Phone: mp822-0365MZ-CamlkW[facility] 250 DO Work Phone: 1(245) 455-303102-07-2023 10:18-0500Heart rate75 /minMarc A Naderer Work Phone: mp031-6335SG-[facility]icaqW[facility]ca [facility] 250 DO Work Phone: 1(385) 333-878702-07-2023 10:18-0500Systolic blood lplqpidk676 mm[Hg] Gildardo Carrie Naderer Work Phone: mp321-0220CA-KsmgyWaseca Hospital [facility] Clinic 250 DO Work Phone: 1(492) 797-726001-17-2023 10:08-0500Body wbcyzg944.7 cmEsdras Cash MD Work Phone: [facility]01-17-2023 10:08-0500Body temperature 97.7 [degF]Esdras Cash MD Work Phone: [facility]01-17-2023 10:08-0500Body ijwnly69.65 kgEsdras Cash MD Work Phone: [facility]01-17-2023 10:08-0500Diastolic blood pegbszys83 mm[Hg]Esdras Cash MD Work Phone: [facility]01-17-2023 10:08-0500Heart rate82 /min Esdras Cash MD Work Phone: [facility]01-17-2023 10:08-0500Respiratory rate 16 /minEsdras Cash MD Work Phone: [facility]01-17-2023 10:08-1247MtK4% (BldA) [Mass fraction]96 %Esdras Cash MD Work Phone: [facility]01-17-2023 10:08-0500Systolic blood druhdyuj310 mm[Hg]Esdras Cash MD Work Phone: [facility]12-15-2022 11:11-0500Body temperature 97.5 [degF]DENIA Carpenter MD Work Phone: [facility]12-15-2022 11:11-0500Body .93 kgDENIA Carpenter MD Work Phone: [facility]12-15-2022 11:11-0500Diastolic blood edsaujzl01 mm[Hg]DENIA Carpenter MD Work Phone: [facility]12-15-2022 11:11-0500Heart rate74 /min DENIA Carpenter MD Work Phone: [facility]12-15-2022 11:11-0500Respiratory rate 18 /FranciscaDENIA Carpenter MD Work Phone: [facility]12-15-2022 11:11-5077YzK3% (BldA) [Mass fraction]97 %DENIA Carpenter MD Work Phone: [facility]12-15-2022 11:11-0500Systolic blood mm[Hg]DENIA Carpenter MD Work Phone: [facility]10-25-2022 13:52-0400Body temperature 97.5 [degF]DENIA Carpenter MD Work Phone: [facility]10-25-2022 13:52-0400Body uyiyzs05.11 kgDENIA Carpenter MD Work Phone: [facility]10-25-2022 13:52-0400Diastolic blood gkndnbba03 mm[Hg]DENIA Carpenter MD Work Phone: [facility]10-25-2022 13:52-0400Heart rate92 /min DENIA Carpenter MD Work Phone: [facility]10-25-2022 13:52-0400Respiratory rate 16 /FranciscaDENIA Carpenter MD Work Phone: [facility]10-25-2022 13:52-1082YhO0% (BldA) [Mass fraction]95 %DENIA Carpenter MD Work Phone: [facility]10-25-2022 13:52-0400Systolic blood zxgdixwr855 mm[Hg]DENIA Carpenter MD Work Phone: [facility]10-18-2022 10:26-0400Body .7 cmEsdras Cash MD Work Phone: [facility]10-18-2022 10:26-0400Body temperature 97.59 [degF]sEdras Cash MD Work Phone: [facility]10-18-2022 10:26-0400Body ifzvpe03.83 kgEsdras Cash MD Work Phone: [facility]10-18-2022 10:26-0400Diastolic blood rfgsmois95 mm[Hg]Esdras Cash MD Work Phone: [facility]10-18-2022 10:26-0400Heart rate72 /min Esdras Cash MD Work Phone: [facility]10-18-2022 10:26-0400Respiratory rate 18 /minEsdras Cash MD Work Phone: [facility]10-18-2022 10:26-0440RlA4% (BldA) [Mass fraction]96 %Esdras Cash MD Work Phone: [facility]10-18-2022 10:26-0400Systolic blood uxcowlee796 mm[Hg]Esdras Cash MD Work Phone: [facility]09-12-2022 12:00-267534 1Mbindu Lacy Work Phone: [phone] [address] [place] Work Phone: Comment on above:[id number] 1 Gildardo Lacy Work Phone: [phone] [address] DO Work Phone: Comment on above:[id number] 13:12-0400Body hcumbzjbuoc19.59 [degF]DENIA Carpenter MD Work Phone: [facility]08-25-2022 13:12-0400Body .66 kgDENIA Carpenter MD Work Phone: [facility]08-25-2022 13:12-0400Diastolic blood axihovpg17 mm[Hg]DENIA Carpenter MD Work Phone: [facility]08-25-2022 13:12-0400Heart rate81 /min DENIA Carpenter MD Work Phone: [facility]08-25-2022 13:12-0400Respiratory rate 16 /FranciscaDENIA Carpenter MD Work Phone: [facility]08-25-2022 13:12-7887JjJ7% (BldA) [Mass fraction]99 %DENIA Carpenter MD Work Phone: [facility]08-25-2022 13:12-0400Systolic blood mm[Hg]DENIA Carpenter MD Work Phone: [facility]07-27-2022 10:50-0400Diastolic blood fgknnpub81 mm[Hg]Gildardo Lcay Work Phone: mp084-1714LM-Kkstn [facility] DO Work Phone: 1(832) [phone] 10:50-0400Systolic blood orcqhuww22 mm[Hg] Gildardo A Naderer Work Phone: mp043-9080IH-Jiuat [facility] 250 DO Work Phone: 1(194) [phone] 10:47-0400Body wmmcka830.8 cmMarc A Naderer Work Phone: mp774-2313FR-[facility]bqcsMel[facility]-[place] [facility] DO Work Phone: 1(802) 237-838007-27-2022 10:47-0400Body mass index (BMI) [Ratio] 23.53 kg/m2Mar A Naderer Work Phone: mp370-5416AP-NrdjmMelrose [facility]-[place] 250 DO Work Phone: 1(289) 358-764007-27-2022 10:47-0400Body surface area Derived from formula1.92 m2[facility] A Naderer Work Phone: mp675-3939OS-MgnonMelrose Area Hospital-[place] 250 DO Work Phone: 1(290) [phone] 10:47-0400Body xdzmos74.39 kgMar A Naderer Work Phone: mp005-3244WE-UjsdpMelrose Area Hospital-[place] 250 DO Work Phone: 1(642) [phone] 10:47-0400Diastolic blood swsuylxg33 mm[Hg] Gildardo A Naderer Work Phone: mp290-2110EZ-Uehgo [facility] 250 DO Work Phone: 1(909) 321-924407-27-2022 10:47-0400Heart rate92 /minMarc A Naderer Work Phone: mp682-1053YN-Rdjhq [facility] 250 DO Work Phone: 1(284) 141-416507-27-2022 10:47-0400Systolic blood npbbcmyv925 mm[Hg] Gildardo A Naderer Work Phone: mp321-3285NG-Lmugi [facility] 250 DO Work Phone: 1(555) 321-175807-27-2022 10:4759431 1Marc Carrie Lacy Work Phone: 1(619) 183-4852793-0515UW-Ktidj [facility] 250 DO Work Phone: Comment on above:PHQ-9 BE32-14-0919 10:53-0400Body rdejhdhzgvb58.9 [degF]DENIA Carpenter MD Work Phone: [facility]07-21-2022 10:53-0400Body elpefx83.93 kgDENIA Carpenter MD Work Phone: [facility]07-21-2022 10:53-0400Diastolic blood mm[Hg]DENIA Carpenter MD Work Phone: [facility]07-21-2022 10:53-0400Heart trgz695 /FranciscaDENIA Carpenter MD Work Phone: [facility]07-21-2022 10:53-0400Respiratory rate 18 /FranciscaDENIA Carpenter MD Work Phone: [facility]07-21-2022 10:53-4472ZzB7% (BldA) [Mass fraction]97 %DENIA Carpenter MD Work Phone: [facility]07-21-2022 10:53-0400Systolic blood mm[Hg]DENIA Carpenter MD Work Phone: [facility]06-02-2022 13:55-0400Body pfzuls757.7 cmEsdras Cash MD Work Phone: [facility]06-02-2022 13:55-0400Body temperature 98.01 [degF]Esdras Cash MD Work Phone: [facility]06-02-2022 13:55-0400Body arrpxc33.39 kgEsdras Cash MD Work Phone: [facility]06-02-2022 13:55-0400Diastolic blood ortbligg07 mm[Hg]Esdras Cash MD Work Phone: [facility]06-02-2022 13:55-0400Heart rate97 /min Esdras Cash MD Work Phone: [facility]06-02-2022 13:55-0400Respiratory rate 16 /minEsdras Cash MD Work Phone: [facility]06-02-2022 13:55-2408RgR4% (BldA) [Mass fraction]98 %Esdras Cash MD Work Phone: [facility]06-02-2022 13:55-0400Systolic blood rnamaclv109 mm[Hg]Esdras Cash MD Work Phone: [facility]05-23-2022 12:09-0400Body hnqwsa161.7 cmEsdras Cash MD Work Phone: [facility]05-23-2022 12:09-0400Body temperature 97.59 [degF]Esdras Cash MD Work Phone: [facility]05-23-2022 12:09-0400Body bopyuo53.12 kgEsdras Cash MD Work Phone: [facility]05-23-2022 12:09-0400Diastolic blood fyzascud31 mm[Hg]Esdras Cash MD Work Phone: [facility]05-23-2022 12:09-0400Heart rate81 /min Esdras Cash MD Work Phone: [facility]05-23-2022 12:09-0400Respiratory rate 16 /minEsdras Cash MD Work Phone: [facility]05-23-2022 12:09-6233KkP0% (BldA) [Mass fraction]97 %Esdras Cash MD Work Phone: [facility]05-23-2022 12:09-0400Systolic blood zmvatvpz753 mm[Hg]Esdras Cash MD Work Phone: [facility]05-16-2022 11:57-0400Body pwifdg106.7 cmMindy Mejia PA-C Work Phone: 1(240) [phone] [address]16-2022 11:57-0400Body temperature 96.69 [degF]Anthony Mejia PA-C Work Phone: 1(409) [phone] [address]16-2022 11:57-0400Body etjoqj34.11 kgMinjerome Mejia PA-C Work Phone: [facility]05-16-2022 11:57-0400Diastolic blood ibensqoi64 mm[Hg]Anthony Mejia PA-C Work Phone: 1(168) [phone] [address]16-2022 11:57-0400Heart cyej536 /minMindy Mejia PA-C Work Phone: 1(137) [phone] [address]16-2022 11:57-0400Respiratory rate 18 /minMindy Mejia PA-C Work Phone: [facility]05-16-2022 11:57-6382BjL3% (BldA) [Mass fraction]99 %Anthony Mejia PA-C Work Phone: [facility]05-16-2022 11:57-0400Systolic blood wtwbteqp083 mm[Hg]Anthony Mejia PA-C Work Phone: [facility]05-16-2022 11:23-0400Body temperature 96.69 [degF]Mike Brown MD Work Phone: [facility]05-16-2022 11:23-0400Body duayco96.11 kgMike Brown MD Work Phone: [place] [address]-16-2022 11:23-0400Diastolic blood gjbkiumw59 mm[Hg]Mike Brown MD Work Phone: [place] [address]-16-2022 11:23-0400Heart xegi082 /Judith Brown MD Work Phone: [facility]05-16-2022 11:23-0400Respiratory rate 18 /minSemily Brown MD Work Phone: [facility]05-16-2022 11:23-6046SjH0% (BldA) [Mass fraction]99 %Mike Brown MD Work Phone: [facility]05-16-2022 11:23-0400Systolic blood cdipdxij504 mm[Hg]Mike Brown MD Work Phone: [facility]05-09-2022 11:46-0400Body sovdpb622.7 cmEsdras Cash MD Work Phone: [facility]05-09-2022 11:46-0400Body temperature 97.59 [degF]Esdras Cash MD Work Phone: [facility]05-09-2022 11:46-0400Body scydnv35.66 kgEsdras Cash MD Work Phone: [facility]05-09-2022 11:46-0400Diastolic blood btnqtipk22 mm[Hg]Esdras Cash MD Work Phone: [facility]05-09-2022 11:46-0400Heart rate81 /min Esdras Cash MD Work Phone: [facility]05-09-2022 11:46-0400Respiratory rate 16 /minEsdras Cash MD Work Phone: [facility]05-09-2022 11:46-8911UsP8% (BldA) [Mass fraction]97 %Esdras Cash MD Work Phone: [facility]05-09-2022 11:46-0400Systolic blood jvsfsjuv998 mm[Hg]Esdras Cash MD Work Phone: [facility]05-09-2022 11:25-0400Body temperature 97.59 [degF]DENIA Carpenter MD Work Phone: [facility]05-09-2022 11:25-0400Body wnssba65.38 kgDENIA Carpenter MD Work Phone: [facility]05-09-2022 11:25-0400Diastolic blood jdzyojma89 mm[Hg]DENIA Carpenter MD Work Phone: [facility]05-09-2022 11:25-0400Heart rate78 /min DENIA Carpenter MD Work Phone: [facility]05-09-2022 11:25-0400Respiratory rate 16 /FranciscaDENIA Carpenter MD Work Phone: [facility]05-09-2022 11:25-9667BpL9% (BldA) [Mass fraction]99 %DENIA Carpenter MD Work Phone: [facility]05-09-2022 11:25-0400Systolic blood numrwwst285 mm[Hg]DENIA Carpenter MD Work Phone: [facility]05-02-2022 09:14-0400Body tzondb723.7 cmMinjerome Mejia PA-C Work Phone: [facility]05-02-2022 09:14-0400Body temperature 98.01 [degF]Anthony Mejia PA-C Work Phone: [facility]05-02-2022 09:14-0400Body .66 kgMindy Mejia PA-C Work Phone: [facility]05-02-2022 09:14-0400Diastolic blood ktbvjnlu24 mm[Hg]Anthony Mejia PA-C Work Phone: [facility]05-02-2022 09:14-0400Heart dsll612 /minMindy Mejia PA-C Work Phone: [facility]05-02-2022 09:14-0400Respiratory rate 16 /minMindy Mejia PA-C Work Phone: [facility]05-02-2022 09:14-7440ZmS5% (BldA) [Mass fraction]98 %Anthony Mejia PA-C Work Phone: [facility]05-02-2022 09:14-0400Systolic blood coqjakjm410 mm[Hg]Anthony Weaver PA-C Work Phone: [facility]04-25-2022 09:00-0400Body znagpk326.7 cmChair Kelsey Work Phone: [facility]04-25-2022 09:00-0400Body temperature 97.3 [degF]Chair Kelsey Work Phone: [facility]04-25-2022 09:00-0400Body .4 kgChair Kelsey Work Phone: [facility]04-25-2022 09:00-0400Diastolic blood yxlxghnf48 mm[Hg]Chair Kelsey Work Phone: [facility]04-25-2022 09:00-0400Heart rate85 /min Chair Kelsey Work Phone: [facility]04-25-2022 09:00-0400Respiratory rate 16 /minChair Kelsey Work Phone: [facility]04-25-2022 09:00-9929OpS7% (BldA) [Mass fraction]98 %Chair Kelsey Work Phone: [facility]04-25-2022 09:00-0400Systolic blood tfpiatgv523 mm[Hg]Chair Kelsey Work Phone: [facility]04-18-2022 13:25-0400Body pypdto476.7 cmNathaly Biggs APRN.GROUP HOME MANAGER Work Phone: [place] [address]-18-2022 13:25-0400Body temperature 97.59 [degF]Nathaly Biggs APRN.GROUP HOME MANAGER Work Phone: [place] [address]-18-2022 13:25-0400Body dhicci06.38 kgNathaly Biggs APRNVinodGROUP HOME MANAGER Work Phone: [facility]04-18-2022 13:25-0400Diastolic blood rnsqgyjd52 mm[Hg]Nathaly Biggs APRN.GROUP HOME MANAGER Work Phone: [place] [address]-18-2022 13:25-0400Heart rate80 /min Nathaly Biggs MOLD PRESS OPERATOR.GROUP HOME MANAGER Work Phone: [place] [address]-18-2022 13:25-0400Respiratory rate 16 /minNathaly Biggs MOLD PRESS OPERATOR.GROUP HOME MANAGER Work Phone: [place] [address]-18-2022 13:25-2276QpF4% (BldA) [Mass fraction]96 %Nathaly Biggs MOLD PRESS OPERATOR.GROUP HOME MANAGER Work Phone: [place] [address]-18-2022 13:25-0400Systolic blood quliybjz627 mm[Hg]Nathaly Biggs MOLD PRESS OPERATOR.GROUP HOME MANAGER Work Phone: [place] [address]-18-2022 12:25-0400Body temperature 97.7 [degF]DENIA Carpenter MD Work Phone: [place] [address]-18-2022 12:25-0400Body .93 kgDENIA Carpenter MD Work Phone: [place] [address]-18-2022 12:25-0400Diastolic blood sdliqanc38 mm[Hg]DENIA Carpenter MD Work Phone: [place] [address]-18-2022 12:25-0400Heart rate77 /min DENIA Carpenter MD Work Phone: [place] [address]-18-2022 12:25-0400Respiratory rate 16 /FranciscaDENIA Carpenter MD Work Phone: [place] [address]-18-2022 12:25-2109WyA7% (BldA) [Mass fraction]98 %DENIA Carpenter MD Work Phone: [place] [address]-18-2022 12:25-0400Systolic blood wdommkdy496 mm[Hg]DENIA Carpenter MD Work Phone: [place] [address]-11-2022 12:28-0400Body visaen096.7 Edilberto Wilson Work Phone: [place] [address]-11-2022 11:47-0400Body oyderk601 cm Esdras Cash MD Work Phone: [place] [address]-11-2022 11:47-0400Body temperature 97.81 [degF]Esdras Cash MD Work Phone: [place] [address]-11-2022 11:47-0400Body rloqpn32.66 kgEsdras Cash MD Work Phone: [place] [address]-11-2022 11:47-0400Diastolic blood ilhrvjte57 mm[Hg]Esdras Cash MD Work Phone: [place] [address]-11-2022 11:47-0400Heart rate72 /min Esdras Cash MD Work Phone: [place] [address]-11-2022 11:47-0400Respiratory rate 16 /minEsdras Cash MD Work Phone: [place] [address]-11-2022 11:47-1529YkR1% (BldA) [Mass fraction]98 %Esdras Cash MD Work Phone: [place] [address]-11-2022 11:47-0400Systolic blood soyolbhy760 mm[Hg]Esdras Cash MD Work Phone: [place] [address]-11-2022 10:32-0400Body temperature 97.7 [degF]DENIA Carpenter MD Work Phone: [place] [address]-11-2022 10:32-0400Body ckbijo17.11 kgDENIA Carpenter MD Work Phone: [place] [address]-11-2022 10:32-0400Diastolic blood vfsbitrw55 mm[Hg]DENIA Carpenter MD Work Phone: [place] [address]-11-2022 10:32-0400Heart rate79 /min DENIA Carpenter MD Work Phone: [place] [address]-11-2022 10:32-0400Respiratory rate 16 /FranciscaDENIA Carpenter MD Work Phone: [facility]04-11-2022 10:32-1150VlZ1% (BldA) [Mass fraction]99 %DENIA Carpenter MD Work Phone: [facility]04-11-2022 10:32-0400Systolic blood oshphsjl153 mm[Hg]DENIA Carpenter MD Work Phone: [facility]03-31-2022 16:11-0400Body cm Esdras Cash MD Work Phone: [facility]03-31-2022 16:11-0400Body temperature 97 [degF]Esdras Cash MD Work Phone: [facility]03-31-2022 16:11-0400Body bxtxas29.84 kgEsdras Cash MD Work Phone: [facility]03-31-2022 16:11-0400Diastolic blood gkxquwbc09 mm[Hg]Esdras Cash MD Work Phone: [facility]03-31-2022 16:11-0400Heart rate68 /min Esdras Cash MD Work Phone: [facility]03-31-2022 16:11-0400Respiratory rate 16 /minEsdras Cash MD Work Phone: [facility]03-31-2022 16:11-7109GvS5% (BldA) [Mass fraction]99 %Esdras Cash MD Work Phone: [facility]03-31-2022 16:11-0400Systolic blood xhpofkgy351 mm[Hg]Esdras Cash MD Work Phone: [facility]03-29-2022 11:02-0400Body temperature 98.29 [degF]DENIA Carpenter MD Work Phone: [facility]03-29-2022 11:02-0400Body ayqayd71.11 kgDENIA Carpenter MD Work Phone: [place] [address]-29-2022 11:02-0400Diastolic blood uulhvmrq13 mm[Hg]DENIA Carpenter MD Work Phone: [facility]03-29-2022 11:02-0400Heart rate69 /min DENIA Carpenter MD Work Phone: [facility]03-29-2022 11:02-0400Respiratory rate 16 /FranciscaDENIA Carpenter MD Work Phone: [facility]03-29-2022 11:02-1438HbO1% (BldA) [Mass fraction]99 %DENIA Carpenter MD Work Phone: [facility]03-29-2022 11:02-0400Systolic blood mm[Hg]DENIA Carpenter MD Work Phone: [facility]09-21-2018 18:46-0400Respiratory rate NOT REPORTEDRATUL [facility] HospitalComment on above: Performed By: #### OHP, IOCAL ####[facility] [address] [place] [phone] 23:55-0400Respiratory rateNOT REPORTEDRATUL [facility] HospitalComment on above:Performed By: #### ERTPF, CONNER, LIP, LIVP, TEGCR ####[facility] [address] [place] [phone]) [phone] 22:58-0400Respiratory rateNOT REPORTEDRATUL [facility] HospitalComment on above:Performed By: #### OHP, IOCAL ####[facility] [address] [place] [address] 01-19-2018 22:10-0400Respiratory rateNOT REPORTEDRATUL [facility] HospitalComment on above:Performed By: #### OHP, IOCAL ####[facility] [address] [place] [phone]) [phone] 21:07-0400 Respiratory rateNOT REPORTEDRAT [facility] Comment on above:Performed By: #### ERTPF, CONNER, LIP, LIVP, TEGCR ####[facility] [address] [place] [address] Encounters Encounter DateEncounter TypeCare ProviderFacilityStart: 03-14-2025 End: 33-47-2206tmxwblfldxO PHILLIP ENGELERFacility:[facility] Start: 63-37-2484qqecuisddpK PHILLIP ENGELERFacility:[facility] Start: 03-06-2025 End: 77-93-8067boxaieorvjSXZZVCSWZ SPEERFacility:[facility]art: 03-06-2025 End: 72-52-2765zdtlsdhocnVkvy Naderer MD Work Phone: [phone])555-0151527-1308-Bfzkwwshc Health NeurologyStart: 03-06-2025 End: 44-69-1164Qayznij encounter procedureNicole Simone [facility] Work Phone: Start: 02-27-2025 End: 04-55-9890zduvinuqxvTautofo Vytautas Giedraitis MDFacility:[facility] Start: 02-21-2025 End: 57-68-2668dcemthwcxsK PHILLIP ENGELERFacility:[facility] Start: 77-43-9630Ibd-patient / Non-visitJacqueline Jj MD-[facility] Work Phone: Start: 01-10-2025 End: 80-33-1742Aatghn Raj Shepherd DPM Work Phone: noRI Geoff PodiatryStart: 01-10-2025 End: 77-89-0590Zexaec Raj Shepherd DPM Work Phone: [facility]ryStart: 01-10-2025 End: 53-88-7699Tuenuv outpatient new 45 minutesJl Concepcion Tyrel DPM Work Phone: noms [place] PodiatryComment on above:Metatarsalgia of left foot (Primary Dx); Closed displaced fracture of second metatarsal bone of left foot, sequela; Left foot pain; Equinus contracture of left ankle; Other synovitis and tenosynovitis, left ankle and footStart: 01-10-2025 End: 97-15-5082cbixgmabjaOHNHHPT Concepcion SCHAFERNot AvailableStart: 12-30-2024 End: 15-28-4810Bhlmhlfmu encounterMarjavid Lacy MD Work Phone: noMS [facility] MedicineStart: 12-21-2024 End: 52-83-0865Bqillz outpatient new 45 minutesLeanne Christopher Caden DO Work Phone: noms FNR PULMComment on above:Cigarette smoker (Primary Dx); Chronic obstructive pulmonary disease, unspecified COPD type (HCC); Chronic hypoxic respiratory failure (HCC)Start: 12-21-2024 End: 46-89-7251bpnaurfjolRLWQJG K STRACKNot AvailableStart: 12-21-2024 End: 31-33-5623Qcwfcu flowsheetLeanne K Caden DO Work Phone: noms FNR PULMStart: 12-21-2024 End: 73-28-0002Lnidvk flowsheetLeanne K Caden DO Work Phone: noms FNR PULMStart: 12-21-2024 End: 69-52-1274Vdjphjoya encounterMarjavid Lacy MD Work Phone: noms [place] [facility] MedicineStart: 12-20-2024 End: 66-50-2252Pfxusoioi Result EncounterGeneric External Data ProviderNOMS External Department UnsolicitedStart: 12-20-2024 End: 14-83-2037Ktfbulmdw Result EncounterGeneric External Data ProviderNOMS External Department UnsolicitedStart: 12-20-2024 End: 87-82-9293Kwuknt outpatient visit 15 minutesG Сергей Carpenter MD Work Phone: Radiation OncologyComment on above:Hypothyroidism due to acquired atrophy of thyroid (Primary Dx)Start: 12-20-2024 End: 48-27-5538veatmeimvxCTino HERRERAacility:[facility] Start: 12-13-2024 End: 56-68-3979NfvmojOzwq Naderer MD Work Phone: noms CWM FMComment on above:Chronic obstructive pulmonary disease, unspecified COPD type (HCC); DDD (degenerative disc disease), thoracicStart: 12-08-2024 End: 57-69-3611igpfvrfnzcMYRDARIL [facility] Hospitaltart: 11-18-2024 End: 21-79-4819Hfptzzqan for other preprocedural examinationCleveland Clinic Foundationtart: 11-18-2024 End: 10-02-3389Zfjbhfghjw and management of inpatientCleveland Clinic Lutheran Hospitaltart: 11-17-2024 End: 54-43-9812fvocpmhoqkQPBSKettering Health Dayton Start: 11-16-2024 End: 34-29-0830BzwelkZvryHeather Lacy MD Work Phone: noms CWM FMComment on above:DDD (degenerative disc disease), thoracicStart: 11-15-2024 End: 05-36-1239kmgrycosjkYBAVZKP ROBERTSMercy [facility] Start: 11-07-2024 End: 46-25-5572wfeuxggtapTNKZ NADERERNot AvailableStart: 04-74-4952Eioauyvvp for other preprocedural examinationKettering Health [facility] Start: 11-02-2024 End: 40-07-0763Uddzquxejdngy examination Collin PHAN Work Phone: noms HealthcareStart: 10-31-2024 End: 60-45-3630tzsaidamtpOEUDCZHenry County Hospitaltart: 10-26-2024 End: 97-77-8705qkfsekgcazJHTPSFI [facility] Start: 10-17-2024 End: 10-90-6537IkzbeqCcgz Naderer MD Work Phone: noMS CWM FMComment on above:Chronic obstructive pulmonary disease, unspecified COPD type (HCC) (Primary Dx); Chronic hypoxic respiratory failure (HCC); DDD (degenerative disc disease), thoracicStart: 10-11-2024 End: 81-23-1762Mldsxzleni Lacy MD Work Phone: noms CWM FMStart: 10-11-2024 End: 36-41-3281Yfcqowrosa Lacy MD Work Phone: noMS CWM FMStart: 10-11-2024 End: 40-47-8530Bdkwob outpatient visit 25 minutesGildardo Lacy MD Work Phone: noms CWM FMComment on above:Essential hypertension (CMS/HCC) (Primary Dx); Chronic obstructive pulmonary disease, unspecified COPD type (CMS/HCC); Chronic hypoxic respiratory failure (CMS/HCC); Thoracic spondylosis; MDD (major depressive disorder), recurrent episode, mild (HCC) (CMS/HCC); Primary insomnia; Tongue cancer (CMS/HCC); Occlusion of left internal carotid arteryStart: 10-11-2024 End: 98-30-5024rcssejxrwnPGZL NADERERNot AvailableStart: 09-19-2024 End: 11-53-0262AxrqxnYuhl Naderer MD Work Phone: noms CWM FMComment on above:DDD (degenerative disc disease), thoracicStart: 09-12-2024 End: 24-30-0579Lsflwi outpatient visit 25 minutesCarmen Neely MD Work Phone: uh [facility] University CityComment on above:Chronic obstructive pulmonary disease, unspecified COPD type (Multi) (Primary Dx); PVD (peripheral vascular disease) (CMS-HCC); Current smoker; Dyspnea, unspecified type; Hyperlipidemia, unspecified hyperlipidemia type; TIA (transient ischemic attack)Start: 09-12-2024 End: 88-04-0711lqdgaftlkvYMBVOW [facility] AmbulatoryStart: 09-08-2024 End: 39-22-9475Xxshhbleni Lacy MD Work Phone: noms CWM FMStart: 09-08-2024 End: 67-45-7940Elipwrrosa Lacy MD Work Phone: NOKI CWM FMStart: 09-08-2024 End: 59-51-2112Yxnynvpxcuyc care manage srvc 7 day dischargeGildardo Lacy MD Work Phone: noms CWM FMComment on above:Pneumonia due to infectious organism, unspecified laterality, unspecified part of lung (Primary Dx); Chronic obstructive pulmonary disease with acute exacerbation (CMS/HCC); Acute hypoxic respiratory failure ([facility]/HCC); Chronic obstructive pulmonary disease, unspecified COPD type (CMS/HCC); Tongue cancer ([facility]/HCC); Dyslipidemia ([facility]/HCC)Start: 09-08-2024 End: 69-40-1543nhkndbedqeJCIF NADERERNot AvailableStart: 09-06-2024 End: 06-39-5908QddjkcNzmk Naderer MD Work Phone: noms CWM FMComment on above:Primary insomniaRefill RequestStart: 09-05-2024 End: 25-02-3405Xnuzif outpatient visit 25 minutesMireya Restrepo MD Work Phone: [facility] Department of ProMedicMercy HealthComment on above:Sequelae, post-stroke (Primary Dx); PAD (peripheral artery disease); Hypertension, unspecified type; Hyperlipidemia, unspecified hyperlipidemia type; Left ventricular hypertrophy; ICAO (internal carotid artery occlusion), left; Chronic obstructive pulmonary disease, unspecified COPD type ([facility]-HCC); History of throat cancer; Tobacco dependence; Alcoholism ([facility])Start: 09-05-2024 End: 38-03-8417hbbzuzjfrnVFYU AFREENProHolzer Health System HospitalStart: 08-30-2024 End: 17-21-5568Subrjextl Result EncounterGeneric External Data ProviderNOMS External Department UnsolicitedStart: 08-30-2024 End: 94-22-9229Jiaybazdi Result EncounterGeneric External Data ProviderNOMS External Department UnsolicitedStart: 08-24-2024 End: 91-59-6454CcgdtfZtqt Naderer MD Work Phone: noms CWM FMComment on above:DDD (degenerative disc disease), thoracicStart: 08-03-2024 End: 80-83-7598Txsrhr flowsheetRashida Zarate EXTRUSION PROCESS OPERATOR Work Phone: NOMS CWM FMStart: 08-03-2024 End: 95-52-4144Pmkwfq flowsheetRashida Zarate EXTRUSION PROCESS OPERATOR Work Phone: NOMS CWM FMStart: 08-03-2024 End: 13-37-8838Nkdyum outpatient visit [address] [place], [place] [address]Rashida Zarate NP Work Phone: NOMS CWM FMComment on above:Cerebrovascular accident (CVA), unspecified mechanism (CMS/HCC) (Primary Dx); Occlusion of left internal carotid artery; Dyslipidemia (CMS/HCC); Essential hypertension (CMS/HCC)Start: 08-03-2024 End: 56-80-1938rabjnhizffPNWA Raghav AvailableStart: 13-92-6716nfhgeqmpctEncompass Health [facility]ulatory PPGStart: 07-26-2024 End: 91-65-4515Mznvbhbco encounterTa-Jacqueline JustinProMedica Neurology, A Department of ProMedicProMedica [facility] HospitalComment on above:STROKE apptStart: 07-25-2024 End: 39-83-3415Tihlheqjy department patient visitAr[facility] Amb[facility] PPGStart: 07-25-2024 End: 11-96-7082TwaunoRfwa Naderer MD Work Phone: NOEB CWM FMComment on above:DDD (degenerative disc disease), thoracicStart: 07-23-2024 End: 79-24-4039Pyyguabww department patient visitMAR NADERERProMedica Hospital Ambulatory PPGStart: 06-24-2024 End: 25-72-5840IlrzvnJbsi Naderer MD Work Phone: noms CWM FMComment on above:DDD (degenerative disc disease), thoracicStart: 06-21-2024 End: 22-17-3739Juefkf outpatient visit 15 minutesG Сергей Carpenter MD Work Phone: Radiation OncologyComment on above:Head and neck cancer (HCC) (Primary Dx)Start: 06-21-2024 End: 63-48-0662dnwnmpqburU PHILLIP ENGELERFacility:[facility] Start: 06-10-2024 End: 33-27-0863Cvqhatydi Result EncounterGeneric External Data ProviderNOMS External Department UnsolicitedStart: 06-10-2024 End: 78-59-0579Slcfpwcis Result EncounterGeneric External Data ProviderNOMS External Department UnsolicitedStart: 06-10-2024 End: 94-13-8237Qpmjuek encounter procedureHebert Miguel MD Work Phone: OrthopaedicsComment on above:Nontraumatic complete tear of right rotator cuff (Primary Dx); Biceps tendinitis of right upper extremity; SmokingStart: 06-10-2024 End: 39-81-2418ynhphyerxdTRACX HOFacility:[facility]: 06-10-2024 End: 47-65-6721Rejedrbwxh hospital visit by physicianXr Main [id number] on above:Pain [R52]Start: 06-07-2024 End: 39-96-4470Cnpvsk Yanely Miguel MD Work Phone: OrthopaedicsComment on above:Pain (Primary Dx)Start: 06-01-2024 End: 63-08-7454Fbgbbw outpatient visit 15 minutesGildardo Lacy MD Work Phone: noms CWM FMComment on above: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); Unsteady gait; Tongue cancer (CMS/HCC); Chronic obstructive pulmonary disease, unspecified COPD type (CMS/HCC)Start: 06-01-2024 End: 01-33-6437stxmdgbxafUSQV NADERERNot AvailableStart: 05-26-2024 End: 87-15-7890XqujrxHjsz Naderer MD Work Phone: noms CWM FMComment on above:DDD (degenerative disc disease), thoracicStart: 05-25-2024 End: 31-80-1936MhayrdDvwe Naderer MD Work Phone: NOQV CWM FMComment on above:DDD (degenerative disc disease), thoracicStart: 05-24-2024 End: 33-32-0951Sarkix flowsheetCassie PHAN Work Phone: noms FB ORTHOPAEDICSStart: 05-24-2024 End: 17-44-5496Mlintp flowsPavan PHAN Work Phone: noms FB ORTHOPAEDICSStart: 05-24-2024 End: 35-30-3891Dtjfgu follow up visit related to original Allie PHAN Work Phone: noms FB ORTHOPAEDICSComment on above:S/P arthroscopy of right shoulder (Primary Dx); Internal derangement of shoulder, right; Arthralgia, unspecified jointStart: 05-24-2024 End: 85-57-0209esffcbrcmtAFZGDZW J MEYERNot AvailableStart: 05-20-2024 End: 21-10-4685Rhzoswbbp Result EncounterMasofia PHAN Work Phone: noms External Department UnsolicitedStart: 05-20-2024 End: 51-01-0945Itrjwnbgb Result EncounterCassie PHAN Work Phone: noms External Department UnsolicitedStart: 05-12-2024 End: 93-80-0304Clckuxfhz encounterCassie PHAN Work Phone: noms SWS ORTHOComment on above:OrderStart: 05-06-2024 End: 97-82-2614Qdbthh flowsPavan PHAN Work Phone: noms FB ORTHOPAEDICSStart: 05-06-2024 End: 41-22-2237Sozwws flowsPavan PHAN Work Phone: noms FB ORTHOPAEDICSStart: 05-06-2024 End: 86-20-0742Bdypji follow up visit related to original Allie PHAN Work Phone: noms FB ORTHOPAEDICSComment on above:S/P arthroscopy of right shoulder (Primary Dx); Internal derangement of shoulder, rightStart: 05-06-2024 End: 06-17-9120ciqgcseggqYJCXUYR Simone TATUMNot AvailableStart: 04-28-2024 End: 77-79-4921Aatbuxbuq Result EncounterGildardo Lacy MD Work Phone: noms External Department UnsolicitedStart: 04-28-2024 End: 92-14-7125Qrdnhbktv Result EncounterGildardo Lacy MD Work Phone: noms External Department UnsolicitedStart: 04-21-2024 End: 10-23-7759IpgukqJmfj Naderer MD Work Phone: noms CWM FMComment on above:DDD (degenerative disc disease), thoracicStart: 04-12-2024 End: 10-02-4427Dadgqt Barbara Lacy MD Work Phone: NOWJ CWM FMStart: 04-12-2024 End: 27-47-9198Oooqya Barbara Lacy MD Work Phone: noms CWM FMStart: 04-12-2024 End: 45-13-5034Jjycloz encounter procedureGildardo Lacy MD Work Phone: [facility] Work Phone: Start: 04-12-2024 End: 58-45-6618Saflxn follow up visit related to original Raffi Lacy MD Work Phone: NOMS CWM FMComment on above:Medicare annual wellness visit, subsequent (Primary Dx); Left foot painStart: 04-12-2024 End: 78-86-3335henxhutcbkZCTZ NADERERNot AvailableStart: 04-04-2024 End: 58-70-1081QjksdrQpiiqyu Kal [facility] Work Phone: [facility] PharmacyComment on above: Refill RequestStart: 03-29-2024 End: 11-36-2060DwmydcRdyv Naderer MD Work Phone: NOMS CWM FMComment on above:Thoracic spondylosis; DDD (degenerative disc disease), thoracicStart: 03-23-2024 End: 70-54-2103Xneohe Geo PHAN Work Phone: noms FB ORTHOPAEDICSStart: 03-23-2024 End: 73-22-3906Rpjmku Geo PHAN Work Phone: NOPY FB ORTHOPAEDICSStart: 03-23-2024 End: 27-09-9157Azrcwh follow up visit related to original Allie PHAN Work Phone: noms FB ORTHOPAEDICSComment on above:S/P arthroscopy of right shoulder (Primary Dx)Start: 03-23-2024 End: 34-98-6353ahxrbmqbbyPAZAOIO J MEYERNot AvailableStart: 03-01-2024 End: 18-26-3456GurdxuXfca Naderer MD Work Phone: NOMS CWM FMComment on above:DDD (degenerative disc disease), thoracicStart: 02-29-2024 End: 66-01-3964Qynwij Barbara Lacy MD Work Phone: NOMS CWM FMStart: 02-29-2024 End: 09-32-5901Nxgebrleni Lacy MD Work Phone: NOMS CWM FMStart: 02-29-2024 End: 24-47-9898Sokcqi outpatient visit 15 minutesGildardo Lacy MD Work Phone: noms CWM FMComment on above:Chronic obstructive pulmonary disease, unspecified COPD type (CMS/HCC) (Primary Dx); Need for immunization against influenzaStart: 02-29-2024 End: 40-70-6776djcsthiqdrUYXP NADERERNot AvailableStart: 02-23-2024 End: 31-92-6075Uvikvg flowsPavan PHAN Work Phone: noms FB ORTHOPAEDICSStart: 02-23-2024 End: 56-81-3080Obbwcx Geo PHAN Work Phone: noms FB ORTHOPAEDICSStart: 02-23-2024 End: 00-60-1018Ssmocs follow up visit related to original Allie PHAN Work Phone: noms FB ORTHOPAEDICSComment on above:S/P arthroscopy of right shoulder (Primary Dx)Start: 02-23-2024 End: 35-41-6612aqijyudiyzEMAFRON J MEYERNot AvailableStart: 02-22-2024 End: 46-96-6727UdtvtcPbap Naderer MD Work Phone: noms CWM FMComment on above:Primary insomniaStart: 02-08-2024 End: 99-88-7197Eacgyyoxj encounterJesse George NP Work Phone: noms FB ORTHOPAEDICSStart: 02-04-2024 End: 65-78-4470Oicqvqetn Result EncounterMasofia PHAN Work Phone: noms External Department UnsolicitedStart: 02-04-2024 End: 14-23-0356Ocrsygxfn Result EncounterCassie PHAN Work Phone: noms External Department UnsolicitedStart: 02-02-2024 End: 21-00-2892Gytwgq flowsPavan PHAN Work Phone: noms FB ORTHOPAEDICSStart: 02-02-2024 End: 56-06-2191Zvkmjg flowsheetMasofia PHAN Work Phone: noms FB ORTHOPAEDICSStart: 02-02-2024 End: 72-44-6595mpcwgqwdwxVEEETGB J MEYERNot AvailableStart: 02-02-2024 End: 26-34-1205Nyjzqis encounter procedureMasofia PHAN Work Phone: noms FB ORTHOPAEDICSComment on above:Preop examination (Primary Dx)Start: 02-02-2024 End: 77-29-2520Autrderixnnqo examination doneCassie PHAN Work Phone: noms HealthcareStart: 01-11-2024 End: 63-12-3920Xtgbalcym encounterJr. Martin Chen DO Work Phone: noms FB ORTHOPAEDICSStart: 01-05-2024 End: 47-29-6051GrjexnZhbk Naderer MD Work Phone: noms CWM FMComment on above:DDD (degenerative disc disease), thoracicStart: 12-31-2023 End: 07-30-7293BtjnzvAnpjqdm LykinsNOMS CWM FMComment on above:DDD (degenerative disc disease), thoracicStart: 12-28-2023 End: 51-63-1163Yystkc flowsheetJr. Martin Chen DO Work Phone: noms FB ORTHOPAEDICSStart: 12-28-2023 End: 28-84-5998Ezcaue flowsheetJr. Martin Chen DO Work Phone: noms FB ORTHOPAEDICSStart: 12-28-2023 End: 96-98-5529Spkcud outpatient visit 25 minutesJr. 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); Severe protein-calorie malnutrition (HCC)Start: 12-22-2023 End: 30-63-1644Hyhsmpg encounter procedureG Сергей Carpenter MD Work Phone: Radiation OncologyComment on above:Head and neck cancer (HCC) (Primary Dx); History of radiation therapyStart: 12-22-2023 End: 47-47-6076Uhzkflott Result EncounterGeneric External Data ProviderNOMS External Department UnsolicitedStart: 12-22-2023 End: 52-84-8846Psxxytjzj Result EncounterGeneric External Data ProviderNOMS External Department UnsolicitedStart: 12-15-2023 End: 16-30-1337Dpxhaivjg Result EncounterGeneric External Data ProviderNOMS External Department UnsolicitedStart: 12-15-2023 End: 63-55-3497Ylxwdaxcb Result EncounterGeneric External Data ProviderNOMS External Department UnsolicitedStart: 12-15-2023 End: 59-09-3363Jbzrayiwsr hospital visit by physicianArrival Time Radiology Work Phone: Radiology Pet CTComment on above:Cancer of base of tongue (HCC) [C01]Start: 11-17-2023 End: 89-91-8445Ydbtud outpatient visit 25 minutesCarmen Neely MD Work Phone: [facility] NorthComment on above:PVD (peripheral vascular disease) ([facility]-HCC); Hyperlipidemia, unspecified hyperlipidemia type; TIA (transient ischemic attack); BMI less than 19,adult; Current smokerStart: 11-17-2023 End: 39-31-0896xyvgaawifjPNZWIX M IBRCarrollton Regional Medical Center AmbulatoryStart: 11-02-2023 End: 94-16-1795Boqnebpjh department patient visitAdena Regional Medical Centertart: 09-08-2023 End: 46-88-5005Jfqqyze encounter procedureMD Gildardo Lacy Work Phone: [facility] [place] Work Phone: Start: 09-08-2023 End: 42-59-6168gajlsjdkhgBN Gildardo Reggie Work Phone: [facility] Work Phone: Start: 08-18-2023 End: 55-96-0936Zytsnhqcf therapyEsdras Cash MD Work Phone: Hematology/OncologyComment on above: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); Malaise and fatigue; Chronic obstructive pulmonary disease, unspecified COPD type (HCC); Severe protein-calorie malnutrition (HCC); Cancer related painStart: 08-18-2023 End: 28-76-0671Nisbwps encounter procedureEsdras Cash MD Work Phone: SANDUSKYComment on above:Head and neck cancer (HCC) (Primary Dx); History of radiation therapyStart: 07-01-2023 End: 03-20-6310Mwpxsicwf Result EncounterGildardo Lacy MD Work Phone: noms External Department UnsolicitedStart: 07-01-2023 End: 00-11-5988Rheauhlpm Result EncounterGildardo Lacy MD Work Phone: noms External Department UnsolicitedStart: 06-19-2023 RefillEsdras Cash MD Work Phone: Hematology/OncologyComment on above:Refill Request Start: 05-06-2023 End: 47-56-4805Kkjkct outpatient visit 25 minutesCarmen Neely MD Work Phone: [facility] NorthComment on above:PVD (peripheral vascular disease) (CMS/HCC) (Primary Dx); Abnormal EKG; TIA (transient ischemic attack); Current smoker; Hyperlipidemia, unspecified hyperlipidemia type; Pulmonary emphysema, unspecified emphysema type (CMS/HCC)Start: 19-94-7644Rdjkgz Esdras Cash MD Work Phone: Hematology/OncologyComment on above:Refill Request Start: 65-03-9445Ohulyrxhl encounterDomxochilt Lorenz RNHematology/OncologyStart: 34-71-1205HkyhwmXooriAmarilis Biggs APRN.GROUP HOME MANAGER Work Phone: Hematology/OncologyComment on above:Refill Request Start: 02-11-2023 End: 10-23-0439Byiyesacxs hospital visit by physicianArrival Time Radiology Work Phone: Radiology Pet CTStart: 01-27-2023 End: 19-23-5037Rxqszwb encounter procedureG Сергей Carpenter MD Work Phone: Radiation OncologyComment on above:Oropharnyx cancer (HCC) (Primary Dx); Severe protein-calorie malnutrition (HCC); Chronic obstructive pulmonary disease, unspecified COPD type (HCC)Start: 13-91-7263KvditzJgsym R Murphy MD Work Phone: Hematology/OncologyComment on above:Refill Request Start: 09-10-2022 End: 15-77-7081Qtvlimfwgc hospital visit by physicianArrival Time Radiology Work Phone: Radiology Pet CTComment on above: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 Gildardo Lacy Facility:[id number]: 05-20-2022 End: 70-76-4335ygfonykwkkSkvja R Murphy MD Work Phone: Hematology/OncologyComment on above: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)Start: 05-20-2022 End: 80-38-2334Frsvwho encounter procedureEsdras Cash MD Work Phone: SANDUSKYStart: 04-17-2022 End: 33-95-6722Ikfnjuq encounter procedureG Сергей Carpenter MD Work Phone: Radiation OncologyComment on above: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)Start: 04-15-2022 End: 67-98-1073uxcynawugxNR STEVEN R ZIEBERFacility:V0Svjos: 04-14-2022 End: 13-39-0932Mpdqspzbmg hospital visit by physicianArrival Time Radiology Work Phone: Radiology Pet CTComment on above: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]Start: 02-25-2022 End: 92-97-2706Jmdfrek encounter procedureG Сергей Carpenter MD Work Phone: Radiation OncologyComment on above:Oropharnyx cancer (HCC) (Primary Dx)Start: 02-18-2022 End: 93-06-2880bsszlymkqrLgwub R Murphy MD Work Phone: Hematology/OncologyComment on above: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); Cancer related pain; Need for influenza vaccinationStart: 02-18-2022 End: 73-01-1443Ovlxbve encounter Jordi Cash MD Work Phone: SANDUSKYStart: 02-06-2022 End: 90-74-6338rzqugeesnfGE MARC A NADERERFacility:U6Tumal: 02-04-2022 End: 08-92-0183gixpkzchgsEL STEVEN R ZIEBERFacility:S4Obwfz: 95-97-1994Mfpku Holli Lacy Work Phone: [phone]-ShqauIan [place]ille [address] DO Work Phone: Start: 17-94-7655Nzfsksu encounter procedureMarjavid Lacy Work Phone: [phone]-FcuodKevin Ville [address]A [place] Work Phone: Start: 80-55-6181wilhphpbmaDc. 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 Gildardo Lacy Facility:[id number]: 27-32-3412UyrfpbStbytAmarilis Biggs APRN.CNP Work Phone: Radiation OncologyComment on above:Refill Request Start: 11-25-2021 End: 33-83-5402fqdvfgqbbxST DOCTOR MISCFacility:E5Mucwl: 11-21-2021 End: 01-35-4869Rqsopzd encounter procedureG Сергей Carpenter MD Work Phone: Radiation OncologyComment on above:Oropharnyx cancer (HCC) (Primary Dx)Start: 11-20-2021 End: 10-60-8192grnknfwaxfLC GILDARDO SHAIKHERERFacility:N6Yddps: 10-04-2021 End: 64-73-6123lngppiyszoPeyuhgzaeu Kaetzel RD Work Phone: sANDUSKYStart: 10-04-2021 End: 35-32-7320Zklfxrswk therapyJackristen Wilhelm RD Work Phone: Nutrition TherapyComment on above:Nutrition Telephone Start: 10-03-2021 End: 04-06-7650Ktxwzsunh therapyEsdras Cash MD Work Phone: Hematology/OncologyComment on above:Oropharnyx cancer (HCC) (Primary Dx); Malaise and fatigue; Severe protein-calorie malnutrition (HCC)Start: 10-03-2021 End: 91-00-1606Pczqajq encounter Jordi Cash MD Work Phone: SANDUSKYStart: 95-93-3643Dfebhkr encounter procedureKathrine Carpenter MD Work Phone: SANDUSKYStart: 68-77-2752Ingqswylm Oncology NoteG Сергей Carpenter MD Work Phone: Radiation OncologyComment on above:Completion Note Start: 09-25-2021 End: 24-89-1795vwxfsssvlzJgvazhbtff Kaetzel RD Work Phone: sANDUSKYStart: 09-25-2021 End: 63-95-1319Mcxpwnvsd therapyJalevi Wilhelm RD Work Phone: Nutrition TherapyComment on above:Nutrition Counseling Start: 82-92-0413Hmavurwtg encounterCynthia Cutler RN Work Phone: Hematology/OncologyComment on above:Care Coordination (Discharge Follow Up)Start: 09-23-2021 End: 30-69-4882hmcxnvtoobQicie R Murphy MD Work Phone: Hematology/OncologyComment on above:Oropharnyx cancer (HCC) (Primary Dx)Start: 09-23-2021 End: 60-08-2371Nyeluzo encounter Jordi Cash MD Work Phone: SANDUSKYStart: 53-95-4964Kimytpgrg encounterResofia Cutler RN Work Phone: Hematology/OncologyComment on above:Care Coordination (Hospital Admission)Start: 09-19-2021 End: 13-54-7665Wcyzlxcxko and management of inpatientMARC NADERERFacility:[facility] Start: 07-72-3161Ddzavnyhp encounterCynthia Cutler RN Work Phone: Hematology/OncologyComment on above:Care Coordination (Pt Update)Start: 12-45-6237Vsilnbryn encounterKathrine Carpenter MD Work Phone: Radiation OncologyComment on above:Nausea (Radiation Cancelled)Start: 37-54-1080Pstjuijfs encounterAmira Powell LSWHematology/Oncology Comment on above:Social Work Services (Gas card program)Care Coordination (Xray) Start: 09-16-2021 End: 44-03-1315rphvknwsquPyrdq [address] [place] Work Phone: Hematology/OncologyComment on above:Nausea (Primary Dx); Lower abdominal pain; Cancer of base of tongue (HCC)Lower abdominal pain (Primary Dx); Cancer of base of tongue (HCC); NauseaStart: 09-16-2021 End: 52-37-5953Vioiuxv encounter procedureMinjerome Weaver PA-C Work Phone: SANDUSKYComment on above: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)Start: 47-12-7803Zupiddjyw encounterEsdras Cash MD Work Phone: Hematology/OncologyComment on above:Patient Update (neuropathy)Start: 09-09-2021 End: 36-19-6783xhhbodjdsvReytxqefyb Kaetzel RD Work Phone: sANDUSKYStart: 09-09-2021 End: 43-78-3438Lqhqpjzei therapyRylee Wilhelm RD Work Phone: Nutrition TherapyComment on above:Nutrition Counseling 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); Severe protein-calorie malnutrition (HCC)Start: 09-09-2021 End: 18-98-0920Jamyvjc encounter procedureKathrine Carpenter MD Work Phone: Radiation OncologyComment on above: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)Start: 09-02-2021 End: 30-63-3991ilkouaxxitLlkud M Musser PA-C Work Phone: Hematology/OncologyComment on above: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)Start: 09-02-2021 End: 64-23-9346Myymndu encounter procedureAnthony Weaver PA-C Work Phone: SANDUSKYStart: 08-26-2021 End: 14-53-5980Wvjwaro encounter procedureG Сергей Carpenter MD Work Phone: Radiation OncologyComment on above: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)Start: 08-26-2021 End: 17-97-5027gfcckiryxsIyjqkaqjhq Kaetzel RD Work Phone: sANDUSKYStart: 08-26-2021 End: 69-22-6526Nysgtbpfb therapyJalevi Wilhelm RD Work Phone: Nutrition TherapyComment on above:Nutrition Assessment Oropharnyx cancer (HCC) (Primary Dx); Cancer of base of tongue (HCC); Oropharyngeal dysphagia; Chronic obstructive pulmonary disease, unspecified COPD type (HCC); Heart disease; Cancer related pain; Anxiety and depression; Severe protein-calorie malnutrition (HCC); Malaise and fatigue; Hypertension, unspecified type; TachycardiaStart: 08-19-2021 End: 53-14-7813yerqdteprbWqwozgblij Kaetzel RD Work Phone: sANDUSKYComment on above: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)Start: 08-19-2021 End: 40-60-7793Kfevjqgtj therapyNathaly Biggs APRN.CNP Work Phone: Hematology/OncologyComment on above:Oropharnyx cancer (HCC) (Primary Dx); Cancer of base of tongue (HCC); Oropharyngeal dysphagia; Chronic obstructive pulmonary disease, unspecified COPD type (HCC); Heart disease; Cancer related pain; Anxiety and depression; Severe protein-calorie malnutrition (HCC); Malaise and fatigue; Hypertension, unspecified type; TachycardiaNutrition CounselingStart: 08-19-2021 End: 32-99-0098Jgaxbxl encounter procedureNathaly Biggs APRN.CNP Work Phone: SANDUSKYComment on above: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)Start: 95-66-2633Wxdynyjxg encounterCynthia Cutler RN Work Phone: Hematology/OncologyComment on above:Care Coordination (C1D1 Post Treatment Call)Start: 38-06-6811Djsccjyuv encounterCynthia Cutler RN Work Phone: Hematology/OncologyComment on above:Care Coordination (Education Material)Start: 08-12-2021 End: 28-40-1775uasqbufbqfDfbds 16 [place] Work Phone: Hematology/OncologyComment on above: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)Oropharnyx cancer (HCC) (Primary Dx)Start: 08-12-2021 End: 54-53-1516Cohcrxz encounter procedureEsdras Cash MD Work Phone: SANDUSKYStart: 08-12-2021 End: 01-59-3256Bhoylst encounter procedureKathrine Carpenter MD Work Phone: Radiation OncologyComment on above: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)Start: 08-09-2021 End: 71-14-6514bejsmhzranWdrviqr Troyer PT, DPT Work Phone: [facility] TherapyComment on above:Physical deconditioning (Primary Dx); Current smokerStart: 69-02-9933pboztrcbuhRaxniax Sessler RN Work Phone: Hematology/OncologyComment on above:Chemotherapy Treatment (Carboplatin)Start: 93-16-1202Ycyftzy encounter procedureCcf Provider [facility] DepartmentStart: 00-36-9368Vodxcnink encounterCynthia Cutler RN Work Phone: Hematology/OncologyComment on above:Care Coordination (Antiemetics)Start: 08-01-2021 End: 02-49-3258buvwemdvsfTkyot R Murphy MD Work Phone: Hematology/OncologyComment on above: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); Malaise and fatigueStart: 08-01-2021 End: 56-21-0082ormlusywgiJlhjspujxr Kaetzel RD Work Phone: sANDUSKYStart: 08-01-2021 End: 43-89-6379Iurobidhn therapyJackristen Wilhelm RD Work Phone: Nutrition TherapyComment on above:Nutrition Assessment Start: 08-01-2021 End: 28-47-7882Qsnemkf encounter procedureEsdras Cash MD Work Phone: SANDUSKYStart: 31-52-5244Zstfutelv Oncology NoteG Сергей Carpenter MD Work Phone: Radiation OncologyComment on above:Simulation Note Treatment PlanningStart: 08-01-2021 End: 46-28-6180Jzhwojmbmj hospital visit by physicianKathrine Carpenter MD Work Phone: Radiology Pet CTStart: 07-30-2021 End: 08-97-5403VcwvmkHrkys R Murphy MD Work Phone: Radiation OncologyComment on above:Refill Request Oropharnyx cancer (HCC) (Primary Dx)Start: 05-28-2021 End: 96-38-6958Yudrqicjda and management of inpatientJEFFERY KATKOFacility:[facility] Start: 04-05-2021 End: 83-69-7745Vxjxrgaeth hospital visit by physicianArrival Time Radiology Work Phone: Radiology Pet CTComment on above:Malignant neoplasm of head, face and neck (HCC) [C76.0]Start: 02-16-2018 End: 13-88-0885Qfsguce encounter procedureKamaldeen O AgoroFacility:[facility] Coasttart: 02-16-2018 End: 00-65-7078Fhlzvto encounter procedureKAMALDEEN O AGOROSaint BetzaidaSouth [facility] [place], [place] CenterStart: 01-19-2018 End: 49-12-5215Ifbjrimmbv and management of inpatientRATUL RAYZANDERUDYAMILETHRIMerchuy [facility] Procedures DateProcedureProcedure DetailPerforming ClinicianStart: 06-48-4173LRX TSH W/REFLEX DQ3Mrjvvdb External Data ProviderStart: 32-63-0608Jbqrr of thyroid stimulating hormone tshG Сергей Carpenter MD Work Phone: Start: 02-77-0597FCPTI CULTURE 2Generic External Data ProviderStart: 76-53-1802XREPU CULTURE 1Generic External Data ProviderStart: 21-85-8775Ek upper extremity w/o contrast materialGeneric External Data Provider Start: 58-19-0279Ijljp shoulder complete minimum 2 viewsHebert Miguel MD Work Phone: Start: 20-35-1858Xxt any jt upper extremity w/o contrast matrlMatthew Simone PHAN Work Phone: Start: 47-43-3819LW FOOT LT 2 VWSMarc Reggie VO Work Phone: Start: 30-30-1045TUE 12-LEADMatthew Simone PHAN Work Phone: Start: 12-44-9447Jbq any jt upper extremity w/o contrast matrlGeneric External Data ProviderStart: 08-79-1809LM PET/CT SKULL- THIGH SUBQGeneric External Data ProviderStart: 53-66-9274Uae imaging ct attenuation skull base mid-thighEsdras Cash MD Work Phone: Start: 12-15-2023 End: 57-04-1748Amagz count complete auto&auto difrntl wbcEsdras Cash MD Work Phone: Start: 87-60-7155Ryc routine ecg w/least 12 lds w/i&r Carmen Neely MD Work Phone: Start: 52-99-7706Kjhdu 1996 panel - Serum or PlasmaNA Ron VO Work Phone: Start: 73-47-2837KWOYFUQWM BLOOD PRESSURENorthern [facility] Reggie VO Work Phone: Start: 20-31-3223Hjofnx scan extracranial art compl bi studyMar Reggie VO Work Phone: Start: 45-57-9730Zse imaging ct attenuation skull base mid-thighEsdras Cash MD Work Phone: Start: 78-05-4944Pbzz bld gluc mntr dev cleared fda spec home useCcf ProviderStart: 44-97-2908Hn thorax w/contrast materialG Сергей Carpenter MD Work Phone: Start: 51-02-2075Wp soft tissue neck w/o contrast materialG Сергей Carpenter MD Work Phone: Start: 17-99-1005Tz thorax w/contrast materialG Сергей Carpenter MD Work Phone: Start: 00-24-6184Kd soft tissue neck w/contrast materialG Сергей Carpenter MD Work Phone: Start: 43-21-1853SPQPSBJYCN BLDG Сергей Carpenter MD Work Phone: Start: 83-93-5197HtuxuykdwsrrvfawIcqx A Naderer Work Phone: Start: 39-65-6925Gso imaging ct attenuation skull base mid-thighG Сергей Carpenter MD Work Phone: Start: 54-69-4947Adzt bld gluc mntr dev cleared fda spec home useCcf ProviderStart: 63-97-8912Phtog count complete auto&auto difrntl wbcMinjerome Weaver PA-C Work Phone: Start: 49-00-6859Mwtru count complete auto&auto difrntl wbcHolandrew Biggs APRN.GROUP HOME MANAGER Work Phone: Start: 91-34-2598Hcb imaging ct attenuation skull base mid-thighG Сергей Carpenter MD Work Phone: Start: 59-81-3719Koqt bld gluc mntr dev cleared fda spec home useCcf ProviderStart: 08-90-5590ZgwomxmohrkQz. Stepanic DO Work Phone: Start: 25-70-1774Xdauhzntze funcj w/cineradiograpy/vidradiogKAMALDEEN AGOROStart: 31-62-7655Touxvpeowh exam chest single viewKAARLEYDEEN AGOROStart: 11-22-8819Netthlybsf exam abdomen 1 view ENOCALDEEN AGOROStart: 29-37-5176JSPV GLUCOSERATUL RAYCHAUDHURIStart: 02-15-2018 MECHANICAL VENTILATIONRATUL RAYCHAUDHURIStart: 55-38-8257HNUOMWTUH TX INTERMITTENTRATUL RAYCHAUDHURIStart: 85-62-1905QQYNZBJSUD VENTILATIONRATUL RAYCHAUDHURIStart: 38-12-1469Fpgbc metabolic panel calcium totalRATUL RAYCHAUDHURIStart: 05-24-2794Jdsng count complete automatedRATUL RAYCHAUDHURI Start: 66-62-0067DFG GLUCOSE FINGERSTICKRATUL RAYCHAUDHURIStart: 65-45-1327AUDI GLUCOSERATUL RAYCHAUDHURIStart: 38-96-4457DIDIJPNWS PATIENTRATUL RAYCHAUDHURI Start: 46-18-7846QQPVXRRTA TX INTERMITTENTRATUL RAYCHAUDHURIStart: 17-36-3988HSH GLUCOSE FINGERSTICKRATUL RAYCHAUDHURIStart: 33-57-1520PHIB GLUCOSERATUL RAYCHAUDHURIStart: 00-67-6357WUJ TIDAL CO2 CONTINUOUSRATUL RAYCHAUDHURIStart: 03-45-5405UQDTTNHC OXYGEN THERAPY PROTOCOLRATUL RAYCHAUDHURIStart: 02-15-2018 NEBULIZER TX INTERMITTENTRATUL RAYCHAUDHURIStart: 85-81-2564Mhdua of magnesium RATUL RAYCHAUDHURIStart: 58-41-0648Tlcom of phosphorus inorganicRATUL RAYCHAUDHURIStart: 69-34-8910Aivni metabolic panel calcium totalRATUL RAYCHAUDHURIStart: 12-32-1260Dctep count complete automatedRATUL RAYCHAUDHURI Start: 18-02-5205JMPZ GLUCOSERATUL RAYCHAUDHURIStart: 92-41-6844MEJTJETZY TX INTERMITTENTRATUL RAYCHAUDHURIStart: 62-48-5131TKL GLUCOSE FINGERSTICKRATUL RAYCHAUDHURIStart: 74-09-6194ESBLF CARERATUL RAYCHAUDHURIStart: 02-15-2018 Radiologic exam chest single viewRATUL RAYCHAUDHURIStart: 12-70-3078XNFB GLUCOSE RATUL RAYCHAUDHURIStart: 68-61-4362ZGBDWAVGD TX INTERMITTENTRATUL RAYCHAUDHURI Start: 25-85-1142UHA GLUCOSE FINGERSTICKRATUL RAYCHAUDHURIStart: 93-79-9416AFMB GLUCOSERATUL RAYCHAUDHURIStart: 66-65-3857URIOTOLUV TX INTERMITTENTRATUL RAYCHAUDHURIStart: 61-62-3428NWHLABJW PATIENTRATUL RAYCHAUDHURIStart: 02-14-2018 POCT GLUCOSERATUL RAYCHAUDHURIStart: 39-45-4870Ps retroperitoneal real time w/image limitedRATUL RAYCHAUDHURIStart: 23-27-8046GEY TIDAL CO2 CONTINUOUSRATUL RAYCHAUDHURIStart: 79-02-9765XCHWFHKT OXYGEN THERAPY PROTOCOLRATUL RAYCHAUDHURI Start: 24-85-7619MGEEWJILQ TX INTERMITTENTRATUL RAYCHAUDHURIStart: 02-14-2018 Radiologic exam chest single viewRATUL RAYCHAUDHURIStart: 40-45-8234Ybvyn metabolic panel calcium totalRATUL RAYCHAUDHURIStart: 06-98-2806Zdvnk count complete automatedRATUL RAYCHAUDHURIStart: 85-99-4604JNYR GLUCOSERATUL RAYCHAUDHURIStart: 84-79-6169BKJUKSEAS TX INTERMITTENTRATUL RAYCHAUDHURIStart: 14-48-1407PMVQFPCPYC NON-VIOLENT OR UCK-XRRT-DIOUVQMOVEPHYLWG RAYCHAUDHURIStart: 07-15-9910AWAJ GLUCOSERATUL RAYCHAUDHURIStart: 73-42-7759WDKUWJEDJ TX INTERMITTENTRATUL RAYCHAUDHURIStart: 98-52-2851EAAH GLUCOSERATUL RAYCHAUDHURI Start: 48-80-6547RPLDMSQ BLOOD #1RATUL RAYCHAUDHURIStart: 12-81-2812MGIDGOLCW TX INTERMITTENTRATUL RAYCHAUDHURIStart: 84-43-9772Ud abdomen & pelvis w/o contrast materialRATUL RAYCHAUDHURIStart: 83-52-5456JZAP GLUCOSERATUL RAYCHAUDHURIStart: 33-71-6337CJR TIDAL CO2 CONTINUOUSRATUL RAYCHAUDHURIStart: 78-12-4658VVBOMVAF OXYGEN THERAPY PROTOCOLRATUL RAYCHAUDHURIStart: 39-25-7383UMAIHOEXX TX INTERMITTENTRATUL RAYCHAUDHURIStart: 74-81-0306Gfgcajcxwq exam abdomen 1 view RATUL RAYCHAUDHURIStart: 37-68-7835Amuoa metabolic panel calcium totalRATUL RAYCHAUDHURIStart: 57-92-0347Tmjjp count complete automatedRATUL RAYCHAUDHURI Start: 22-80-1294YEIYU NATRIURETIC PEPTIDERATUL RAYCHAUDHURIStart: 02-13-2018 POCT GLUCOSERATUL RAYCHAUDHURIStart: 18-40-8447JTRKQBFGZ TX INTERMITTENTRATUL RAYCHAUDHURIStart: 29-76-1254DYCV GLUCOSERATUL RAYCHAUDHURIStart: 02-12-2018 NEBULIZER TX INTERMITTENTRATUL RAYCHAUDHURIStart: 84-41-0632TULN GLUCOSERATUL RAYCHAUDHURIStart: 08-90-1117ZAGTNYHHB TX INTERMITTENTRATUL RAYCHAUDHURIStart: 77-63-3773JTPDJXHM BLOOD GAS, POCRATUL RAYCHAUDHURIStart: 44-64-9519SNXM GLUCOSE RATUL RAYCHAUDHURIStart: 99-51-5981QQL TIDAL CO2 CONTINUOUSRATUL RAYCHAUDHURI Start: 77-20-0010RUMHCTLG OXYGEN THERAPY PROTOCOLRATUL RAYCHAUDHURIStart: 26-55-8417BDVVMNRLP TX INTERMITTENTRATUL RAYCHAUDHURIStart: 69-72-5255Shhbpvwmoz exam chest single viewRATUL RAYCHAUDHURIStart: 87-43-9125VWZ DRAWRATUL RAYCHAUDHURIStart: 43-99-6249RPFGNOCAWNVSQ NURSING CARE ORDER (SPECIFY)RATUL RAYCHAUDHURIStart: 11-98-8477Bykkx of magnesiumRATUL RAYCHAUDHURIStart: 78-98-5295Jtupu of phosphorus inorganicRATUL RAYCHAUDHURIStart: 93-90-8993Pmefp metabolic panel calcium totalRATUL RAYCHAUDHURIStart: 42-34-5430Feyvo count complete automatedRATUL RAYCHAUDHURIStart: 32-75-2311SNNZU NATRIURETIC PEPTIDE RATUL RAYCHAUDHURIStart: 46-10-0211PIPO GLUCOSERATUL RAYCHAUDHURIStart: 08-44-3222NQFLFPEEG TX INTERMITTENTRATUL RAYCHAUDHURIStart: 62-22-1946CNILA CARE RATUL RAYCHAUDHURIStart: 23-30-1799GXFC GLUCOSERATUL RAYCHAUDHURIStart: 24-40-4700FAHEPJRAI TX INTERMITTENTRATUL RAYCHAUDHURIStart: 79-61-4113ZDSK GLUCOSERATUL RAYCHAUDHURIStart: 91-92-0682JZIXSISCZ TX INTERMITTENTRATUL RAYCHAUDHURIStart: 47-29-6016PPDY GLUCOSERATUL RAYCHAUDHURIStart: 99-69-2134ULH TIDAL CO2 CONTINUOUSRATUL RAYCHAUDHURIStart: 26-42-0433VWXJFXDN OXYGEN THERAPY PROTOCOLRATUL RAYCHAUDHURIStart: 13-81-2186ZEOEKGECN TX INTERMITTENTRATUL RAYCHAUDHURIStart: 05-56-7162JSCVQUIWBX NON-VIOLENT OR FZN-XDAA-PLTTDISMCRKCOHGS RAYCHAUDHURIStart: 05-67-6823Lkodh of triglyceridesRATUL RAYCHAUDHURIStart: 24-33-6812Oibib metabolic panel calcium totalRATUL RAYCHAUDHURIStart: 02-11-2018 Blood count complete automatedRATUL RAYCHAUDHURIStart: 60-93-3836SKMZB NATRIURETIC PEPTIDERATUL RAYCHAUDHURIStart: 29-68-3997CUGY GLUCOSERATUL RAYCHAUDHURIStart: 39-06-7832SOGTTJMYK TX INTERMITTENTRATUL RAYCHAUDHURIStart: 54-96-6429TBPMUSP BLOOD #1RATUL RAYCHAUDHURIStart: 73-14-5590ZETL GLUCOSERATUL RAYCHAUDHURIStart: 95-63-6463BPSMTSNYS TX INTERMITTENTRATUL RAYCHAUDHURIStart: 04-39-7094ZPRVIFWFJLQOJ NURSING CARE ORDER (SPECIFY)RATUL RAYCHAUDHURIStart: 25-82-6263NVPV GLUCOSERATUL RAYCHAUDHURIStart: 95-10-5658Dyiilzfopr exam abdomen 1 viewRATUL RAYCHAUDHURIStart: 44-77-5638MCYVYNDFN TX INTERMITTENTRATUL RAYCHAUDHURIStart: 34-68-7096Mpntyeqxnph blood/blood componentsRATUL RAYCHAUDHURIStart: 37-92-1933YICE GLUCOSERATUL RAYCHAUDHURIStart: 56-91-6543ZRH TIDAL CO2 CONTINUOUSRATUL RAYCHAUDHURIStart: 70-58-3645MNLIJNTM OXYGEN THERAPY PROTOCOLRATUL RAYCHAUDHURIStart: 88-42-9188OTSDHMQVD TX INTERMITTENTRATUL RAYCHAUDHURIStart: 52-25-4673Whfhf metabolic panel calcium totalRATUL RAYCHAUDHURIStart: 24-32-4726FABOC NATRIURETIC PEPTIDERATUL RAYCHAUDHURIStart: 28-99-4342OTLSXBEP SPECIMENRATUL RAYCHAUDHURIStart: 20-91-8267LTKKQWLS RT PROTOCOLRATUL RAYCHAUDHURIStart: 76-58-3687Sewxa count complete automatedRATUL RAYCHAUDHURIStart: 74-04-3539Qjbv tst prsmv instrmnt chem analyzers pr dateRATUL RAYCHAUDHURIStart: 85-39-4947LRJW GLUCOSERATUL RAYCHAUDHURIStart: 02-10-2018 NEBULIZER TX INTERMITTENTRATUL RAYCHAUDHURIStart: 72-81-2377HXQNR CARERATUL RAYCHAUDHURIStart: 17-47-0999TTVP GLUCOSERATUL RAYCHAUDHURIStart: 02-09-2018 NEBULIZER TX INTERMITTENTRATUL RAYCHAUDHURIStart: 05-06-7456PCC 12-LEADRATUL RAYCHAUDHURIStart: 38-31-9292PIK REPORTRATUL RAYCHAUDHURIStart: 38-81-7042CMDK GLUCOSERATUL RAYCHAUDHURIStart: 52-72-7657CCIXCGOIGA NON-VIOLENT OR ARO-ZTOW-WETLMHJJJZUBIEQK RAYCHAUDHURIStart: 75-56-7371FLBKFLFDO TX INTERMITTENT RATUL RAYCHAUDHURIStart: 89-00-8183HVKXFTSL BLOOD GAS, POCRATUL RAYCHAUDHURI Start: 00-72-6555VHOF GLUCOSERATUL RAYCHAUDHURIStart: 22-02-9551XDL TIDAL CO2 CONTINUOUSRATUL RAYCHAUDHURIStart: 59-08-3055JBJJEJDN OXYGEN THERAPY PROTOCOL RATUL RAYCHAUDHURIStart: 93-47-1500GPEHSZFIP TX INTERMITTENTRATUL RAYCHAUDHURI Start: 22-64-2249Mjvzh metabolic panel calcium totalRATUL RAYCHAUDHURIStart: 62-45-5527Swtay count complete automatedRATUL RAYCHAUDHURIStart: 25-68-0778DBZNE NATRIURETIC PEPTIDERATUL RAYCHAUDHURIStart: 02-59-7174SPSA GLUCOSERATUL RAYCHAUDHURIStart: 40-26-4589BEEVYBXYP TX INTERMITTENTRATUL RAYCHAUDHURIStart: 80-95-5839EYWM GLUCOSERATUL RAYCHAUDHURIStart: 61-78-0878GEFMNMREB TX INTERMITTENTRATUL RAYCHAUDHURIStart: 71-65-0141CWUVZ CARERATUL RAYCHAUDHURI Start: 41-56-2216GIFW GLUCOSERATUL RAYCHAUDHURIStart: 78-37-4116RXQHYZFBG TX INTERMITTENTRATUL RAYCHAUDHURIStart: 74-21-2393Mmva [facility]/wom-mode compl spec&colr dRATUL RAYCHAUDHURIStart: 15-64-1464ZQXD GLUCOSERATUL RAYCHAUDHURIStart: 15-76-2515AQL TIDAL CO2 CONTINUOUSRATUL RAYCHAUDHURIStart: 05-71-7415VCGGVYIO OXYGEN THERAPY PROTOCOLRATUL RAYCHAUDHURIStart: 02-08-2018 NEBULIZER TX INTERMITTENTRATUL RAYCHAUDHURIStart: 92-98-9920BJZSJHXFRD NON- VIOLENT OR YUF-PNXU-GUSXXXUEWCCBQUMX RAYCHAUDHURIStart: 17-59-4554Vpsuc of magnesiumRATUL RAYCHAUDHURIStart: 16-91-7814Unhkm of phosphorus inorganicRATUL RAYCHAUDHURIStart: 92-66-6376Jvlav metabolic panel calcium totalRATUL RAYCHAUDHURIStart: 75-04-6707Bgcfp count complete automatedRATUL RAYCHAUDHURI Start: 52-75-7712PHCLQ NATRIURETIC PEPTIDERATUL RAYCHAUDHURIStart: 02-08-2018 ARTERIAL BLOOD GAS, POCRATUL RAYCHAUDHURIStart: 52-89-9139LNAA GLUCOSERATUL RAYCHAUDHURIStart: 21-98-0391JKXKYMCWQ TX INTERMITTENTRATUL RAYCHAUDHURIStart: 28-43-0567VNLND CARERATUL RAYCHAUDHURIStart: 24-32-9621OLJV GLUCOSERATUL RAYCHAUDHURIStart: 46-14-6141KSNMXURNI TX INTERMITTENTRATUL RAYCHAUDHURIStart: 61-27-8527PCKB GLUCOSERATUL RAYCHAUDHURIStart: 84-53-1136JKDLPLEZH TX INTERMITTENTRATUL RAYCHAUDHURIStart: 61-17-6158Mymimgeocr exam chest single view RATUL RAYCHAUDHURIStart: 09-00-9628OUEM GLUCOSERATUL RAYCHAUDHURIStart: 31-21-0922TTZ TIDAL CO2 CONTINUOUSRATUL RAYCHAUDHURIStart: 67-44-3225JZJTFTJI OXYGEN THERAPY PROTOCOLRATUL RAYCHAUDHURIStart: 35-13-3048FGFPIMWRD TX INTERMITTENTRATUL RAYCHAUDHURIStart: 47-66-8508Zzqqv metabolic panel calcium totalRATUL RAYCHAUDHURIStart: 95-08-5988Mhbwv count complete automatedRATUL RAYCHAUDHURIStart: 49-12-6375HAUWY NATRIURETIC PEPTIDERATUL RAYCHAUDHURIStart: 08-57-7106QOYKBARE BLOOD GAS, POCRATUL RAYCHAUDHURIStart: 57-79-1913YFCQ GLUCOSE RATUL RAYCHAUDHURIStart: 60-59-8398JWPELJVBT TX INTERMITTENTRATUL RAYCHAUDHURI Start: 02-52-4460GDMRQURKAX AND HEMATOCRIT, BLOODRATUL RAYCHAUDHURIStart: 80-33-5116Qhrar of lactateRATUL RAYCHAUDHURIStart: 98-46-4361MMHU GLUCOSERATUL RAYCHAUDHURIStart: 17-84-0370KJKGORAWU TX INTERMITTENTRATUL RAYCHAUDHURIStart: 28-94-2561OTOK GLUCOSERATUL RAYCHAUDHURIStart: 24-02-1357FBAYQHFWA TX INTERMITTENTRATUL RAYCHAUDHURIStart: 04-95-6424EHROVFRGF RED BLOOD CELLSRATUL RAYCHAUDHURIStart: 80-30-6529Gaign of lactateRATUL RAYCHAUDHURIStart: 02-06-2018 POCT GLUCOSERATUL RAYCHAUDHURIStart: 81-31-5244TNR TIDAL CO2 CONTINUOUSRATUL RAYCHAUDHURIStart: 06-08-9087MGMKPUVG OXYGEN THERAPY PROTOCOLRATUL RAYCHAUDHURI Start: 20-01-3592JQBQYQXBG TX INTERMITTENTRATUL RAYCHAUDHURIStart: 02-06-2018 Assay of amylaseRATUL RAYCHAUDHURIStart: 31-23-9936Rpmxy of lipaseRATUL RAYCHAUDHURIStart: 51-07-3983Obfzd metabolic panel calcium totalRATUL RAYCHAUDHURIStart: 50-29-2254Allfp count complete automatedRATUL RAYCHAUDHURI Start: 92-60-6616BZKFK NATRIURETIC PEPTIDERATUL RAYCHAUDHURIStart: 58-91-9162OV RATUL RAYCHAUDHURIStart: 28-44-3585MKTIVRTBG, SERUMRATUL RAYCHAUDHURIStart: 55-67-5352DYLOHPZZ BLOOD GAS, POCRATUL RAYCHAUDHURIStart: 86-15-9130JODU GLUCOSE RATUL [facility]Start: 23-59-4218DXZIUCHWX TX INTERMITTENTRATUL [facility] Start: 55-30-0400UDLLRYDD RT PROTOCOLRATUL [facility]Start: 02-06-2018 NEBULIZER TX INTERMITTENTRATUL [facility]Start: 56-35-8233YFHO GLUCOSERATUL [facility]Start: 91-32-0273OULU GLUCOSERATUL [facility]: 02-05-2018 Basic metabolic panel calcium totalRATUL [facility]Start: 58-20-1585JXDUOAVAUA AND HEMATOCRIT, BLOODRAT [facility]Start: 67-17-8803UMFFSCJWEG NON-VIOLENT OR SHL-KBRJ-XJPPTULFGXWQEXPX [facility]Start: 16-70-9852GHVRHCYFY RED BLOOD CELLSRATUL [facility]Start: 62-03-1868IJG, RAPID CITRATEDRATUL [facility] Start: 96-79-7757GPPMAWSER RED BLOOD CELLSRAT [facility]Start: 02-05-2018 POCT GLUCOSERAT [facility]: 00-68-0531XOI TIDAL CO2 CONTINUOUSRATUL [facility]Start: 44-67-6198HOJPTYQH OXYGEN THERAPY PROTOCOLRATNEW[facility]ITALRI Start: 88-00-8420Wsllt bld/component collj storage predepositedRATUL [facility]ITAL[facility]Start: 92-55-9345MOFQ AND SCREENRATUL [facility]Start: 02-05-2018 PREPARE RBC (CROSSMATCH)RAT [facility]Start: 47-79-8299Przic metabolic panel calcium totalRATUL [facility]Start: 52-80-7863Iaxzr count complete automated RATUL [facility]Start: 85-58-9138XZOP GLUCOSERATUL [facility]Start: 54-73-2354RSBHXMYG BLOOD GAS, POCRAT [facility]Start: 78-31-6790Jiryhgngqi exam chest single viewRATUL [facility]Start: 73-49-6586RGW BLOOD GASRATUL [facility]Start: 34-55-6323KML TIDAL CO2 CONTINUOUSRATUL RAYCHAUDHURIStart: 87-66-4962MEHVFYTZ BLOOD GAS, POCRATUL RAYCHAUDHURIStart: 68-89-1502NNPI GLUCOSE RATUL RAYCHAUDHURIStart: 86-62-4189EYKLB CARERATUL RAYCHAUDHURIStart: 02-05-2018 Basic metabolic panel calcium totalRATUL [facility]Start: 47-67-0541WTRK GLUCOSERATUL RAYCHAUDHURIStart: 25-73-8215PASTYKZGVR, URINERATUL [facility] Start: 74-67-8638Xweef metabolic panel calcium totalRATUL [facility]Start: 24-04-0017KGBLMEHLJPONIOH [facility]Start: 44-79-2804NRIG GLUCOSERATUL [facility]Start: 85-49-7172CWPOLIBCFXGN [facility]Start: 03-46-5016Leamo metabolic panel calcium totalRATUL [facility]Start: 78-19-2486Nfaodmq function panelRATUL [facility]Start: 98-76-9105Ruddnsiipe [Mass/volume] in UrineRATUL [facility]Start: 44-87-0686IWMDVW, URINE, RANDOMRATUL [facility]Start: 33-41-4294OXPKCLZIZS NON-VIOLENT OR OKH-JQXC-ZWVLDLSDADDLXRWU RAYCHAUDHURIStart: 88-06-6694Jyqpt of lactateRATUL [facility]Start: 29-29-1133KYPU GLUCOSERATUL [facility]Start: 06-72-3461SNJZZDGW OXYGEN THERAPY PROTOCOLRATUL [facility] Start: 48-65-7092ZHNTMIGP CONSULT FOR RENAL DOSINGRATUL RAYCHAUDHURIStart: 01-07-0895Cbbqz metabolic panel calcium totalRATUL [facility]Start: 02-04-2018 Blood count complete automatedRATUL RAYCHAUDHURIStart: 42-89-6499VYJIHONE BLOOD GAS, POCRATUL RAYCHAUDHURIStart: 07-51-8716DDE DRAWRATUL RAYCHAUDHURIStart: 27-70-8044YAYQ GLUCOSERATUL RAYCHAUDHURIStart: 15-86-9169WSEG GLUCOSERATUL RAYCHAUDHURIStart: 30-76-1418MFUL GLUCOSERATUL RAYCHAUDHURIStart: 02-03-2018 Assay of magnesiumRATUL RAYCHAUDHURIStart: 43-08-4120Iobpe of phosphorus inorganicRATUL RAYCHAUDHURIStart: 90-92-2599Kzexau serum plasma or whole blood RATUL RAYCHAUDHURIStart: 06-59-8003DKQQOEJSCS NON-VIOLENT OR PKM-WSYC-KSENEGIIJAEEOPBO RAYCHAUDHURIStart: 35-43-0884CAHW GLUCOSERATUL RAYCHAUDHURIStart: 90-72-6650YTDUUIZA OXYGEN THERAPY PROTOCOLRAT [facility] Start: 29-93-4086Vovop of magnesiumRATUL RAYCHAUDHURIStart: 27-04-0076Kzncj of phosphorus inorganicRATUL [facility]AY[facility]AUDHURIStart: 25-68-4131Ocrjg metabolic panel calcium totalRATUL RAY[facility]AUD[facility]URIStart: 85-82-8321Hzihh count complete automated RATUL RAY[facility]AUD[facility]URIStart: 91-35-0421WWWB GLUCOSERATUL RAYCHAUDHURIStart: 50-23-2698Grmvq of lactateRATUL [facility]AY[facility]URIStart: 38-45-2233Rvcpe metabolic panel calcium totalRATUL [facility]AY[facility]URIStart: 76-13-5677Egyya count complete automatedRATUL [facility]AY[facility]URIStart: 87-39-2978Mgyjvhldvt exam chest single view RATUL [facility]URIStart: 52-33-0747HMSYDTWU BLOOD GAS, POCRATUL [facility]AY[facility]URI Start: 83-43-2258DNURILEPUPBT PANEL, POCRATUL RAY[facility]URIStart: 67-68-8196OVNR GLUCOSERATUL RAY[facility]URIStart: 74-50-9208IEH BLOOD GASRATUL RAY[facility]URIStart: 41-52-1571Gujlbh serum plasma or whole bloodRATUL RAYCHAUDHURIStart: 02-03-2018 WOUND CARERATUL RAYCHAUDHURIStart: 27-21-0414ILPEXXJM TO DOSE VANCOMYCINRATUL RAYCHAUD[facility]URIStart: 66-76-8968DVTM GLUCOSERATUL RAYCHAUDHURIStart: 90-79-7313PBOC GLUCOSERATUL RAYCHAUDHURIStart: 92-47-1942Kvzmmy serum plasma or whole blood RATUL RAYCHAUDHURIStart: 92-78-5395Wpzkzl serum plasma or whole bloodRATUL RAYCHAUDHURIStart: 06-68-6338Auplyfcvuj [Mass/volume] in UrineRATUL [facility] Start: 24-63-2794PQGKHAOHDY, URINERATUL RAYCHAUDHURIStart: 33-93-2764EWKALY, URINE, RANDOMRATUL RAY[facility]AUDHURIStart: 56-85-5732UM CONSULT TO NEPHROLOGYRATUL [facility]Start: 86-89-8334RTFQ GLUCOSERATUL RAYCHAUDHURIStart: 02-02-2018 INITIATE OXYGEN THERAPY PROTOCOLRATUL [facility]AY[facility]URIStart: 32-00-7964BONQDKRNWJ NON-VIOLENT OR TKA-QFBH-YYPYZLPUJUWMZQIG RAYCHAUDHURIStart: 12-47-5969Okyjf metabolic panel calcium totalRATUL [facility]URIStart: 10-91-7420Bdfwo count complete automatedRATUL [facility]URIStart: 19-56-6997XQJHFNT, IONIZEDRATUL RAY[facility]URIStart: 77-41-7772DQYIQCJXWBDGMAE RAYCHAUDHURIStart: 62-11-1534RMES GLUCOSERATUL RAY[facility]AUD[facility]URIStart: 76-95-0772Vrzodm serum plasma or whole blood RATUL RAYCHAUDHURIStart: 04-23-8283LNGS GLUCOSERATUL RAYCHAUDHURIStart: 70-78-3565Bfgwyl serum plasma or whole bloodRATUL RAYCHAUDHURIStart: 02-01-2018 POCT GLUCOSERATUL RAY[facility]URIStart: 90-31-4835SCUJUVZP BLOOD GAS, POCRATUL RAYCHAUDHURIStart: 05-18-0839QHS GLUCOSE FINGERSTICKRATUL RAY[facility]AUDHURIStart: 30-04-6177Sytfacmsxb exam chest single viewRATUL RAY[facility]AUDHURIStart: 02-01-2018 POC BLOOD GASRATUL RAYCHAUDHURIStart: 80-99-2755QZRMWQMI PATIENTRATUL RAY[facility]AUDHURIStart: 73-78-1274EVLC CARERATUL RAY[facility]AUDHURIStart: 88-21-5772Udccp metabolic panel calcium totalRATUL [facility]URIStart: 17-89-1821Lsnyu count complete auto&auto difrntl wbcRATUL [facility]AY[facility]URIStart: 34-50-6280MSDWGTJIPO NON- VIOLENT OR CIZ-SDQB-HMPPPGOOVYEWUZBO RAYCHAUDHURIStart: 08-78-2730JIUZNGO COMMUNICATIONRATUL [facility]AY[facility]URIStart: 87-06-0936FGJHIP REQUESTRATUL [facility] Start: 37-16-7641WQBSO CARERATUL RAYCHAUDHURIStart: 68-90-9216DLJMVFZZ PATIENT RATUL RAYCHAUDHURIStart: 46-00-1998SOTV GLUCOSERATUL RAY[facility]AUDHURIStart: 00-81-4962QMTPEDTR OXYGEN THERAPY PROTOCOLRATUL [facility]AY[facility]URIStart: 02-01-2018 POCT GLUCOSERATUL [facility]AY[facility]URIStart: 02-86-7411XOE GLUCOSE FINGERSTICKRATUL RAY[facility]HURIStart: 18-79-1839UPOS GLUCOSERATUL RAYCHAUDHURIStart: 81-58-3696MWA GLUCOSE FINGERSTICKRATUL RAY[facility]HURIStart: 04-97-4249CAAL GLUCOSERATUL [facility]AY[facility]HURIStart: 40-82-8948YBG GLUCOSE FINGERSTICKRATUL RAY[facility]URIStart: 52-18-2793YWGN GLUCOSERATUL RAY[facility]HURIStart: 19-18-2257JRCXBGQN OXYGEN THERAPY PROTOCOLRATUL RAYCHAUDHURIStart: 39-71-5266Vvkvt of magnesiumRATUL RAYCHAUDHURI Start: 96-17-8370Aisuf of phosphorus inorganicRATUL RAYCHAUDHURIStart: 63-66-2171Ezcvg metabolic panel calcium totalRATUL RAYCHAUDHURIStart: 01-31-2018 Blood count complete auto&auto difrntl wbcRATUL [facility]RIStart: 01-31-2018 RESTRAINTS NON-VIOLENT OR JJX-WGBV-KGHHRIRPRUJCSUVQ RAYCHAUDRIStart: 61-46-6834TIE GLUCOSE FINGERSTICKRATUL [facility]Start: 85-38-5296BBZC GLUCOSE RATUL [facility]Start: 93-49-5393Hkqpf dip stick/tablet reagent auto microscopyRATUL [facility]Start: 53-75-4283GUR GLUCOSE FINGERSTICKRATUL [facility]Start: 74-98-5008FQAR GLUCOSERATUL [facility]UDHURIStart: 75-54-4124DPCY GLUCOSERATUL [facility]Start: 30-42-4879IPYMJZMKE AND AEROBIC CULTURERATUL [facility]Start: 91-22-8977BGL GLUCOSE FINGERSTICKRATUL [facility]Start: 56-90-7689Jjvhliahid exam chest single viewRATUL [facility]Start: 01-30-2018 POCT [facility]UCOSERATUL [facility]Start: 04-18-5516UKUZOIPG OXYGEN THERAPY PROTOCOL RATUL [facility]Start: 72-34-7827NECZAGV BLOOD #1RATUL [facility]Start: 85-94-5273Fzhhc of magnesiumRATUL [facility]Start: 49-69-0839Xeymk of phosphorus inorganicRATUL [facility]Start: 58-00-3163Xsjhn count complete auto&auto difrntl wbcRATUL [facility]Start: 08-55-3997Ckzewgbqfjmwz metabolic panelRATUL [facility]Start: 82-84-2164GTB GLUCOSE FINGERSTICKRATUL RAYCHAUDHURIStart: 79-42-7140NPGY GLUCOSERATUL [facility]UD[facility]URIStart: 16-19-9205KNC GLUCOSE FINGERSTICKRATUL [facility]Start: 15-14-4729FZQZE WEIGHTSRATUL RAYCHAUDHURIStart: 25-58-4403OUGV GLUCOSERATUL [facility]UDHURIStart: 01-29-2018 Assay of triglyceridesRATUL [facility]Start: 10-00-9085Dj abdomen & pelvis w/contrast materialRATUL [facility]Start: 76-66-5968XFFB GLUCOSERATUL [facility]Start: 37-33-5394TBLIS CARERATUL [facility]Start: 01-29-2018 MISCELLANEOUS NURSING CARE ORDER (SPECIFY)RATPEDRO [facility]ITALRIStart: 01-29-2018 NURSING COMMUNICATIONRATUL [facility]Start: 31-98-8002IDQFIDZDTD NUTRITION INDICATIONSRATUL [facility]Start: 80-71-9016DGXNIOQEMP NUTRITION INFUSION CHECKRATUL [facility]ITALRIStart: 34-89-1738PB CONSULT TO DIETITIANRATSLIDELL [facility]ORIAL [facility] AND MEDICAL CENTERtart: 16-88-6505DUGXQBOLCT NON-VIOLENT OR OFX-AJKI-TIEJPQPDWVIFTFKK [facility] CHILDRENRIStart: 76-42-8499QIRTUMVKKAFI RAYCHAUDHURIStart: 88-88-9395Txfxr of triglyceridesRATJOHN C. STENNIS MEMORIAL HOSPITALUDRIStart: 47-40-5816SR CONSULT TO DIETITIANRATSLIDELL MEMORIAL HOSPITAL AND MEDICAL CENTERtart: 79-82-0316QQDMUP PHYSICIAN (SPECIFY)PACOPEDRO [facility] CHILDRENRIStart: 94-32-1649QSDJNKZ COMMUNICATIONRATUL [facility]ITALRIStart: 51-59-3721QILLAVCADD NUTRITION INDICATIONSRATUL [facility]RIStart: 75-57-4416APST GLUCOSERATUL [facility]DRENRIStart: 63-19-0233XLRWHPAQ OXYGEN THERAPY PROTOCOLRATUL [facility] Start: 08-84-4655Fuueewouhv exam chest single viewRATUL [facility]RIStart: 63-07-1997Nldsc metabolic panel calcium totalRATUL [facility]Start: 01-29-2018 Blood count complete auto&auto difrntl wbcRATUL [facility]Start: 01-29-2018 BRAIN NATRIURETIC PEPTIDERATUL [facility]RIStart: 47-05-1492Onjhn metabolic panel calcium totalRATUL [facility]RIStart: 70-21-1955WTQLKGZ BLOOD #1RATUL RAYCHAUDHURIStart: 45-00-1477RDMUCZRH PATIENTRATUL [facility]Start: 01-28-2018 INSERT PICC LINERATUL [facility]RIStart: 10-07-9189ICWKQTWDCROFX NURSING CARE ORDER (SPECIFY)RATPEDRO RAYZANDERUDRIStart: 24-21-9784DB CONSULT TO INFECTIOUS DISEASESRATUL [facility]RIStart: 07-47-0751MCROQUFZ OXYGEN THERAPY PROTOCOLRATUL [facility]RIStart: 19-91-2427HBBKVLP COMMUNICATIONRATUL [facility]RIStart: 23-97-8854Ngnpa of magnesiumRAT [facility]RIStart: 27-94-4258Nqkqo of phosphorus inorganicRATUL [facility]RIStart: 71-87-1475Qzorw metabolic panel calcium totalRATUL [facility]Start: 94-78-3715Wsybw count complete auto&auto difrntl wbcRATUL [facility]RIStart: 30-47-8076E-reactive proteinRATUL [facility]RIStart: 79-00-3523Pedhpnk function panelRATUL [facility]RIStart: 33-68-4402PZPVLFVCDUCBXDV [facility]Start: 02-82-3004PSUQLYVAIDCMOTSR [facility]RIStart: 63-21-9144OZY WITH REFLEXRATUL RAYCHAUDRIStart: 01-28-2018 Ct abdomen & pelvis w/contrast materialRATUL [facility]Start: 01-27-2018 RESTRAINTS NON-VIOLENT OR PHO-SRTB-GAPJHDRKLCABIABQ [facility]Start: 30-93-3680Ccduxvuwsh exam abdomen 1 viewRATUL RAYCHAUDHURIStart: 01-27-2018 Radiologic exam abdomen 1 viewRATUL RAYCHAUDRIStart: 48-60-5036Oiqoi spine lumbosacral 2/3 viewsRATUL RAYCHAUDHURIStart: 99-33-6803Gdywmuuybi exam chest single viewRATUL RAYCHAUDHURIStart: 67-77-1617FTRRWBLZ OXYGEN THERAPY PROTOCOL RATUL RAYCHAUDRIStart: 38-47-5960Zwrwh of magnesiumRATUL RAYCHAUDRIStart: 25-42-0607Rhnrn of phosphorus inorganicRATUL RAYCHAUDHURIStart: 29-61-4027Rtnhd metabolic panel calcium totalRATUL RAYCHAUDHURIStart: 71-14-6659Okqaq count complete auto&auto difrntl wbcRATUL RAYCHAUDHURIStart: 00-31-2571CGORDDOWXT, RANDOMRATUL RAYCHAUDHURIStart: 36-49-9385WDCWLQN, IONIZEDRATUL RAYCHAUDHURI Start: 92-21-5451Hqkcvroqk serum plasma/whole bloodRATUL RAYCHAUDHURIStart: 60-20-0741Bjtmbkuqs serum plasma/whole bloodRATUL RAYCHAUDHURIStart: 01-26-2018 VANCOMYCIN, TROUGHRATUL RAYCHAUDHURIStart: 32-30-3256JA CONSULT TO IV TEAMRAT [facility]ITAL[facility]RIStart: 60-43-1502BHOCQNGS OXYGEN THERAPY PROTOCOLRATUL [facility] Start: 36-23-7343Fgaejdmjcv exam abdomen 1 viewRATUL RAYCHAUDHURIStart: 44-04-9962Wpvuzludzp exam chest single viewRATUL RAYCHAUDHURIStart: 01-26-2018 Assay of magnesiumRATUL [facility]Start: 04-21-2636Qszon of phosphorus inorganicRAT [facility]Start: 69-16-0347Onxpp metabolic panel calcium total RATUL [facility]Start: 69-97-1790Odkil count complete auto&auto difrntl wbc RATUL RAYCHAUDRIStart: 91-45-4936SJLZC NATRIURETIC PEPTIDERATUL RAYCHAUDHURI Start: 00-04-5013GAIPZJD, IONIZEDRATUL RAYCHAUDHURIStart: 51-80-1336Wvlbvcdad serum plasma/whole bloodRATUL RAYCHAUDHURIStart: 40-38-8193EWOHEIQCEL NON- VIOLENT OR OTR-WFLP-RUDHQJWELNFDBAIY RAYCHAUDHURIStart: 20-56-0098Evpsjjwca serum plasma/whole bloodRATUL RAYCHAUDHURIStart: 65-63-2142Cj abdomen & pelvis w/contrast materialRATUL RAYCHAUDHURIStart: 21-15-2494ARQGIMWZ PATIENTRATUL RAYCHAUDHURIStart: 11-55-8566EDQ 12-LEADRATUL RAYCHAUDHURIStart: 47-34-2750TJP REPORTRATUL RAYCHAUDHURIStart: 70-33-2602Opxaxwprsm exam chest single viewRATUL RAYCHAUDHURIStart: 75-04-2436Iilkf count complete auto&auto difrntl wbcRATUL RAYCHAUDHURIStart: 32-18-8961OSORVIBJCR, TROUGHRATUL RAYCHAUDHURIStart: 41-09-6252HLHZJHAU OXYGEN THERAPY PROTOCOLRATUL RAYCHAUDHURIStart: 01-25-2018 Assay of magnesiumRATUL RAYCHAUDHURIStart: 31-37-3967Qsvzp of phosphorus inorganicRATUL RAYCHAUDHURIStart: 78-60-6271Dndzn metabolic panel calcium total RATUL RAYCHAUDHURIStart: 40-09-4808LXQCDTB, IONIZEDRATUL RAYCHAUDHURIStart: 54-30-0175Lwoeoorol serum plasma/whole bloodRATUL RAYCHAUDHURIStart: 01-24-2018 RESTRAINTS NON-VIOLENT OR KOW-KUAG-VMIDFKCILSQBTPVN RAYCHAUDHURIStart: 77-41-6233Ovfaxzztg serum plasma/whole bloodRATUL RAYCHAUDHURIStart: 01-24-2018 INITIATE OXYGEN THERAPY PROTOCOLRATUL RAYCHAUDHURIStart: 29-26-2212Flgkd of magnesiumRATUL RAYCHAUDHURIStart: 80-86-8344Bqpuy of phosphorus inorganicRATUL RAYCHAUDHURIStart: 71-82-1285Qxuqe metabolic panel calcium totalRATUL RAYCHAUDHURIStart: 44-54-4856Wwrrj count complete automatedRATUL RAYCHAUDHURI Start: 92-01-5762UDWABPP, IONIZEDRATUL RAYCHAUDHURIStart: 00-82-8944Vydflpmpmk exam chest single viewRATUL RAYCHAUDHURIStart: 75-79-2365UDKUFAASMO, TROUGHRATUL RAYCHAUDHURIStart: 33-05-4547Plnglgusw serum plasma/whole bloodRATUL RAYCHAUDHURIStart: 73-19-9654OPCZQYEA BLOOD GAS, POCRATUL RAYCHAUDHURIStart: 99-71-2169Bciaf gases any combination ph pco2 po2 co2 qfm4SRQOW RAYCHAUDHURI Start: 36-76-6108AGZDDBW, IONIZEDRATUL RAYCHAUDHURIStart: 31-51-1181Ukmez of magnesiumRATUL [facility]HURIStart: 62-35-7144QAWIZMY, IONIZEDRATUL RAYCHAUDHURI Start: 97-76-2353VDA 12-LEADRATUL RAYCHAUDHURIStart: 15-61-2539KKB REPORTRATUL RAYCHAUDRIStart: 56-77-9462IPHYUAFU BLOOD GAS, POCRAT [facility]URIStart: 51-56-9538PFL 12-LEADRATUL RAYCHAUDHURIStart: 41-86-7388PIF REPORTRATUL [facility]Start: 43-62-2735Fokkifmcyw exam chest single viewRAT [facility] Start: 56-09-1755GSFZYFUW OXYGEN THERAPY PROTOCOLRAT [facility]Start: 85-71-2633Aozic gases any combination ph pco2 po2 co2 wbj0DMUBJ [facility] Start: 92-91-2898Hecax of magnesiumRAT [facility]Start: 18-20-9009Tzapg metabolic panel calcium totalRAT [facility]Start: 23-26-8082Fcaiu count complete automatedRAT [facility]Start: 73-01-2663CDOXG NATRIURETIC PEPTIDE RAT [facility]Start: 33-11-0109Bwbwufcpxwo platelet assayRAT [facility] Start: 82-35-8690ROHTQHDYGX, TROUGHRAT [facility]Start: 63-92-1847FXKJFYQ D 25 HYDROXYRAT [facility]Start: 26-71-1026Jjvrc gases any combination ph pco2 po2 co2 nhx0VDPAE [facility]Start: 08-28-8076Tdwqohuamlqow metabolic panel RAT [facility]Start: 61-24-2500Ewsdh count complete auto&auto difrntl wbc RAT [facility]Start: 54-95-3047ETWJLCKZ BLOOD GAS, POCRAT RAYCHAUDHURI Start: 81-98-7975Pthbh gases any combination ph pco2 po2 co2 jpl0MIZBW [facility]Start: 15-48-1053KGJ 12-LEADRAT [facility]Start: 33-25-4723DOC REPORTRAT [facility]Start: 16-27-7766DXXZXBGV BLOOD GAS, POCRAT [facility]UDHURIStart: 46-40-6076Abeaq gases any combination ph pco2 po2 co2 hco3 RATNEWPORT COMMUN[facility] HOSPITALRIStart: 70-68-8604KO CONSULT TO DIETITIANRATTHE MEDICAL CENTER Start: 75-96-2845DJRQFXLB TO DOSE VANCOMYCINRATJOHN C. STENNIS MEMORIAL HOSPITALUDRIStart: 01-22-2018 Echo tthrc r-t 2d w/wom-mode compl spec&colr dRATNEWPORT COMMUNITY HOSPITALRIStart: 40-15-2541TEKUYBNR BLOOD GAS, POCRAT [facility]Start: 89-01-4157GEULAIOJ OXYGEN THERAPY PROTOCOLRAT [facility]Start: 48-75-0923VWKEAOPX BLOOD GAS, POCRAT [facility]UDHURIStart: 73-95-7489Oabhu gases any combination ph pco2 po2 co2 lha8STBNB [facility]Start: 27-24-3227Bgrxurkohg exam chest single view RAT [facility]RIStart: 10-42-8704Jstyw of magnesiumRATJOHN C. STENNIS MEMORIAL HOSPITALUDRIStart: 68-27-8950Nnsip of phosphorus inorganicRATNEWPORT COMMUNITY HOSPITALRIStart: 96-22-9153Zfdtw metabolic panel calcium totalRAT [facility]Start: 43-00-5511Qxdpg count complete automatedRAT [facility]Start: 65-47-6312USNRT NATRIURETIC PEPTIDE RAT [facility]Start: 20-68-1002Zdffbnwepom platelet assayRATJOHN C. STENNIS MEMORIAL HOSPITALUDRI Start: 72-85-2246PXACSXXR OXYGEN THERAPY PROTOCOLRAT [facility]Start: 67-49-2649AQTUPQK DEHYDROGENASE, BODY FLUIDRAT [facility]Start: 01-21-2018 PROTEIN, BODY FLUIDRAT [facility]Start: 93-40-6261Turbndqrvh exam chest single viewRATUL RAYCHAUDHURIStart: 80-05-2647GFDBGGL DEHYDROGENASERATUL RAYCHAUDHURIStart: 92-60-4461Uyfeohu xcpt refractometry serum plasma/whl bld RATPEDRO RAYCHAUDHURIStart: 64-56-8349Gdysvbbvevroq needle/cath pleura w/imaging RATPEDRO RAYCHAUDHURIStart: 91-88-4987XXMTO SIGNSRATUL RAYCHAUDRIStart: 08-61-4261GQCDOBIFFHJTG NURSING CARE ORDER (SPECIFY)RATPEDRO RAYCHAUDHURIStart: 38-87-1410IZRRZDO COMMUNICATIONRATUL RAYCHAUDHURIStart: 91-20-5933YQUA PATIENT RATUL RAYCHAUDRIStart: 70-44-9110VSEGAMZ HEELS OFF OF BEDRAT [facility] Start: 17-97-4901KEGJX NATRIURETIC PEPTIDERATUL RAYCHAUDRIStart: 01-21-2018 Creatinine [Mass/volume] in UrineRAT [facility]Start: 11-96-6874FVWSYI, URINE, RANDOMRAT [facility]Start: 11-17-2674Eygqcsqcxl exam chest single viewRATUL RAYCHAUDHURIStart: 95-39-1316Edhojgbvka exam abdomen 1 viewRAT [facility]RIStart: 17-53-1440PANAMOEK PATIENTRATUL RAYCHAUDHURIStart: 01-21-2018 Assay of lactateRATUL [facility]Start: 93-83-5328Rxzgt of magnesiumRAT [facility]RIStart: 94-60-7632Oabzf of phosphorus inorganicRAT [facility] Start: 54-81-6756Rhdtx metabolic panel calcium totalRATUL RAYCHAUDHURIStart: 32-77-1405Durhi count complete automatedRATUL RAYCHAUDHURIStart: 01-21-2018 CALCIUM, IONIZEDRATUL RAYCHAUDRIStart: 13-24-0775Paipzogqwqk platelet assay RATPEDRO RAYCHAUDRIStart: 87-62-3377TVZA PRECAUTIONSRATUL RAYCHAUDHURIStart: 54-36-1686ZCEHXQGVJVAHZTF RAYCHAUDRIStart: 89-94-1872Ajcopwypzyg urinalysis RATJOHN C. STENNIS [facility]PITALUDRIStart: 67-00-5340XWVOD RT REFLEX TO CULTURERAT [facility] Start: 80-34-2385MWMBLIKGK CONSULT TO LOCUM TENENS PSYCHIATRIST/PROSTHETISTRATTHE MEDICAL CENTER Start: 45-64-3032Uyijp of lactateRATUL RAYCHAUDHURIStart: 67-66-7145Cllvv of magnesiumRATUL RAYCHAUDHURIStart: 31-36-4045Vfh spinal canal cervical w/o contrast matrlRATUL [facility]RIStart: 87-02-7418Ld lumbar spine w/o contrast materialRATUL RAYCHAUDHURIStart: 75-55-0871Fe thoracic spine w/o contrast materialRATUL RAYCHAUDHURIStart: 54-03-3697NTLIBG STRIP REPORTRAT [facility] Start: 93-30-7634NAHAXMXER PLATELETSRAT [facility]Start: 01-20-2018 Radiologic exam chest single viewRAT [facility]Start: 21-83-4047ULKSKDZC BLOOD GAS, POCRATUL [facility]UDHURIStart: 01-98-8653Cvuni of lactateRATUL RAYCHAUDHURIStart: 82-93-1711Wrzio of magnesiumRAT [facility]RIStart: 12-12-6593Gaydf of phosphorus inorganicRATJOHN C. STENNIS MEMORIAL [facility]OSPITALUDRIStart: 06-49-2624Pqtfx metabolic panel calcium totalRAT [facility]Start: 57-87-0826Ldnir count complete auto&auto difrntl wbcRAT [facility]Start: 66-80-6984OEVOAXZ, IONIZEDRAT [facility]RIStart: 95-91-2034Tdo spinal canal lumbar w/o contrast materialRAT [facility]UDHURIStart: 85-36-7288Xqsgvfyjdjf blood/blood components RATNEWPORT COMMUN[facility]OSPITALRIStart: 18-37-6239LNNVYGQLHW NON-VIOLENT OR RXZ-RJUP-LMZHKYMVFUNMJSKP [facility]Start: 20-21-3030GMAEHLVO BLOOD GAS, POC RAT RAYCHAUDHURIStart: 39-61-6931HBIAFBZUQ FRESH FROZEN PLASMARAT [facility]RIStart: 88-83-7657Hxzgj of lactateRATUL RAYCHAUDHURIStart: 01-20-2018 Assay of magnesiumRATUL RAYCHAUDHURIStart: 16-87-2337Gczjg of phosphorus inorganicRATUL RAYCHAUDHURIStart: 76-70-1473Dlkrx metabolic panel calcium total RATUL RAYCHAUDHURIStart: 80-41-7950Rrvti count complete auto&auto difrntl wbc RATUL RAYCHAUDHURIStart: 80-35-1326AYQBMGD, IONIZEDRATUL RAYCHAUDHURIStart: 81-83-1579Tsepzkb function panelRATUL RAYCHAUDHURIStart: 99-68-1942ULB, RAPID CITRATEDRATUL RAYCHAUDHURIStart: 73-62-4304JPJM DNA PROBE, NASALRATUL RAYCHAUDHURIStart: 74-84-9164YATFGVTAT FRESH FROZEN PLASMARATUL RAYCHAUDHURI Start: 15-00-5707Ianlteudxc exam chest single viewRATUL RAYCHAUDHURIStart: 06-76-5157Hfhad gases any combination ph pco2 po2 co2 svb7GGIRM RAYCHAUDHURI Start: 74-11-8370FSHRBJMLN BINDERRATUL RAYCHAUDHURIStart: 68-40-5114LBFO CODE RATUL RAYCHAUDHURIStart: 07-88-1053AX EVAL AND TREATRATUL RAYCHAUDHURIStart: 10-84-3519NONJB INTERMITTENT PNEUMATIC COMPRESSION DEVICERATUL RAYCHAUDHURI Start: 45-52-4627DL EVAL AND TREATRATUL RAYCHAUDHURIStart: 00-28-0062YNSAMA FOR NO CHEMICAL VTE PROPHYLAXISRATUL RAYCHAUDHURIStart: 99-38-4515GHV EVAL AND TREAT RATUL RAYCHAUDHURIStart: 59-35-2907BJXAI SIGNSRATUL RAYCHAUDHURIStart: 64-51-9439WIGLQGZM PATIENTRATUL RAYCHAUDHURIStart: 21-24-2586WPMKSAMU COUNTRATUL RAYCHAUDHURIStart: 30-50-9445OLM, RAPID CITRATEDRATUL RAYCHAUDHURIStart: 94-91-4605OHQJNWM, IONIZEDRATUL RAYCHAUDHURIStart: 25-19-6163TUICHOZBDWAJTKQ RAYCHAUDHURIStart: 27-24-5685VZBK HEART PANELRATUL RAYCHAUDHURIStart: 01-20-2018 Prothrombin timeRATUL RAYCHAUDHURIStart: 00-24-9268Yklcxabtirmcwl time partial plasma/whole bloodRATUL RAYCHAUDHURIStart: 84-84-0734QBLAWOG STATUS (FROM ED OR OR/PROCEDURAL)RATUL RAYCHAUDHURIStart: 84-85-7773RAKAXZHB PATHOLOGYRATUL RAYCHAUDHURIStart: 39-38-6060KNIZORGSB RED BLOOD CELLSRATUL RAYCHAUDHURIStart: 10-63-4553CGQIJBF RBC (CROSSMATCH)RATUL RAYCHAUDHURIStart: 58-50-6900GNLGPHC, IONIZEDRATUL RAYCHAUDHURIStart: 08-87-3936TLNY HEART PANELRATUL RAYCHAUDHURI Start: 15-31-5934Snorluiqewg blood/blood componentsRATUL RAYCHAUDHURIStart: 08-75-6157Bm angio abd&plvis cntrst mtrl w/wo cntrst imgRATUL RAYCHAUDHURIStart: 59-21-5686GA CONSULT TO NEUROSURGERYRATUL RAYCHAUDHURIStart: 78-62-9351LSDA AND SCREENRATUL RAYCHAUDHURIStart: 67-94-2909Easun of amylaseRATUL RAYCHAUDHURI Start: 09-34-5624Bujuq of lipaseRATUL RAYCHAUDHURIStart: 05-95-5652Moilpwn function panelRATUL RAYCHAUDHURIStart: 39-41-8438BNQ, RAPID CITRATEDRATUL RAYCHAUDHURIStart: 51-28-8293TVCHQM PANELRATUL RAYCHAUDHURIStart: 01-19-2018 SURGICAL PATHOLOGYRATUL RAYCHAUDHURIStart: 07-09-0125GKHPRKBOD, QUADV, 3 YRS AND OLDER, IM, MDV, 0.5ML (FLUZONE QUADV)HASEEB AMSTUTZStart: 67-60-4941ZYVQHISIFTCL POLYSACCHARIDE VACCINE 23-VALENT =>2YO SQ/IMERIC AMSTUTZHernia [facility] Carrie Lacy Work Phone: History of radiation therapyHistory of radiation therapyG Сергей Carpenter MD Work Phone: History of radiation therapyHistory of radiation therapyG Сергей Carpenter MD Work Phone: Operation on lungMarc A Naderer Work Phone: SplenectomyMarc A Naderer Work Phone: Total colonoscopyMarc A Naderer Work Phone: Plan of Treatment DateCare ActivityDetailAuthorStart: 79-99-6747PUrE,Tdap and Td Vaccines (3 - Td or Tdap)DTaP,Tdap and Td Vaccines (3 - Td or Tdap)[facility] SystemStart: 80-96-1635QIhV/Tdap/Td Vaccines (3 - Td or Tdap)DTaP/Tdap/Td Vaccines (3 - Td or Tdap)[facility] HealthStart: 20-96-7915Otexk microalbumin profileDTaP,Tdap,Td Vaccine (3 - Td or Tdap)[facility]2030 Screening for malignant neoplasm of colonNOJohn J. Pershing VA Medical CenterStart: 87-96-8485Qnvoe panelLipid ScreeningPeoples Hospitaltart: 78-73-6216IYjK/Tdap/Td Vaccines (2 - Td or Tdap)DTaP/Tdap/Td Vaccines (2 - Td or Tdap)[facility] HealthStart: 94-99-7517Fnyce microalbumin profilePeoples Hospitaltart: 79-35-9544Dusdboil ScreeningDiabetes ScreeningPeoples Hospitaltart: 12-14-2026 Diabetes ScreeningDiabetes ScreeningPeoples Hospitaltart: 28-78-4547Zwozxnwq ScreeningDiabetes ScreeningPeoples Hospitaltart: 83-96-8338Nyfdvdut Screening Diabetes ScreeningPeoples Hospitaltart: 58-15-4371Fchwjyif ScreeningDiabetes ScreeningPeoples Hospitaltart: 95-75-0777DVKVRVAWKXOL (3 - PPSV23 or PCV20) PNEUMOCOCCAL (3 - PPSV23 or PCV20)[facility]: 67-34-1511Pwexwzbkziah vaccinationPeoples Hospitaltart: 41-84-2006Nyhkjxqgvqmz Vaccine: Pediatrics (0 to 5 Years) and At-Risk Patients (6 to 64 Years) (3 - PPSV23 orPCV20) Pneumococcal Vaccine: Pediatrics (0 to 5 Years) and At-Risk Patients (6 to 64 Years) (3 - PPSV23 orPCV20)[facility]: 2025 Pneumococcal Vaccine: Pediatrics (0 to 5 Years) and At-Risk Patients (6 to 64 Years) (3 of 3 - PPSV23 or PCV20)Pneumococcal Vaccine: Pediatrics (0 to 5 Years) and At-Risk Patients (6 to 64 Years) (3 of 3 - PPSV23 or PCV20)[facility]: 57-19-2157XPECHXHC SCREENDIABETES SCREENPeoples Hospitaltart: 06-27-2025 End: 54-22-9886Idywvbd encounter kgkqfvxhy91/24/2026 1:45 PM EST Office Visit Radiation Oncology [address] [place] [address] [place] [address] Kathrine Carpenter MD [address] [place] [address] [place] [address] 6 month follow upRadiation OncologyComment on above:6 month follow upStart: 06-22-2025 End: 47-04-0952AJZ W/REFLEX FT4TSH W/REFLEX FT4 Lab Routine Hypothyroidism due to acquired atrophy of thyroid Expected: 06/22/2025, Expires: 09/21/2025 [facility] Work Phone: Comment on above:Expected: 06/22/2025, Expires: 09/21/2025Start: 18-81-3976KB Controlled (<130/80)BP Controlled (<130/80) [facility] 06-20-2025 End: 15-78-3128Azztavh encounter cwhejpwai96/17/2026 11:00 AM EST Office Visit [facility] [address] [place] [address] LABWest [facility] LaboratoryComment on above:LABStart: 89-77-4977LIQBAZTB SCREENDIABETES SCREENPortland ClinicStart: 05-05-2025 End: 12-56-8213Gmtfkrc encounter zvpotutgv71/02/2026 2:00 PM EST Office Visit [facility] [address] [facility] [address] [place] [address] Carmen Neely MD [address] [place] [address] [facility]: 04-18-2025 End: 30-75-8606Lhipvyc encounter hebpuidkn47/16/2025 10:00 AM EST Office Visit [facility] [address] [place] [address] Gildardo Lacy MD [address] [place] [address] [facility] FMStart: 12-10-2025Medicare Annual Wellness (AWV)Medicare Annual Wellness (AWV)[facility] HealthcareStart: 02-21-2025 End: 38-70-0227Bgqjory encounter fwvkuxikm75/21/2025 2:15 PM EDT Office [facility] [address] [place] [phone] Jl Shepherd, DPM [address] [place] [address] [facility]iatryStart: 02-15-2025 End: 76-81-5698Httwvsu encounter umwhdtixt50/15/2025 3:00 PM EDT Office Visit [facility] [address] [place] [phone] Kaela Negrete, DO [address] [facility] [place] [address] [facility] F[facility] PULMStart: 90-06-9927AGAONDXB SCREENDIABETES SCREEN [facility] ClinicStart: 01-10-2025 End: 76-09-0331Sonqdfo encounter ifdfhwuey64/09/2025 1:30 PM EDT Office Visit [facility] [address] [place] [phone] Jl Shepherd, DPM [address] [place] [place], [place] [id number] ArrivedNOMS Tellez PodiatryComment on above:ArrivedStart: 23-16-4102TCRMP-19 Vaccine ()COVID-19 Vaccine ()[facility] SystemStart: 50-54-6522Nicvtsdbn vaccinationNORI HealthcareStart: 12-21-2024 End: 30-72-5423Ezhlsas encounter procedureNOMS FNR PULMComment on above:Chronic obstructive pulmonary disease, unspecified COPD type (HCC); Chronic hypoxic respiratory failure (HCC)Start: 12-20-2024 End: 38-99-3018Xkbneyx encounter procedureRadiation OncologyComment on above: FollowupStart: 11-07-2024 End: 23-96-4477Dgeishzzmrif / ancillary services nuszitlkhf69/07/2025 2:00 PM EDT Ancillary Procedure [facility] [address] [place] [phone] [facility] FNR RADIOLOGYStart: 68-04-5711Xjewk BMI Screening Adult BMI ScreeningKettering Health Troy SystemStart: 06-14-7432Oddcfex Screening Tobacco ScreeningKettering Health Troy SystemStart: 10-11-2024 End: 18-17-6661Ygmtrbl encounter procedureNOMS CWM FMComment on above:Arrived Start: 44-47-8804EDACSKVZ SCREENDIABETES SCREENPeoples Hospitaltart: 09-24-2024 DIABETES SCREENDIABETES SCREENPeoples Hospitaltart: 28-85-0166YSUIHAXI SCREEN DIABETES SCREENPeoples Hospitaltart: 09-15-2024 End: 04-39-5713Scxgopb encounter tqdrobgou34/15/2025 1:45 PM EDT Office Visit [facility] [address] [place] [phone] Gildardo Lacy MD [address] [place] [address] [facility] CWM FMStart: 09-12-2024 End: 00-29-2073Nvera 1996 panel - Serum or PlasmaLipid Panel Lab Routine Hyperlipidemia, unspecified hyperlipidemia type Expected: 09/12/2024 (Approx imate), Expires: 09/12/2025[facility] Service Area Work Phone: Comment on above:Expected: 09/12/2024 (Approximate), Expires: 09/12/2025Start: 29-72-7162DWAVJZGZ SCREENDIABETES SCREENPortland ClinicStart: 09-08-2024 End: 94-80-7709Ljytxzw encounter procedureNOMS CWM FMComment on above:Arrived Start: 09-05-2024 End: 93-09-5687Ajsaxznzvpnq consultation with frwdirp0609/05/2024 10:00 AM EDT Telemedicine [facility] Department of [facility] [facility] [address] [place] [phone] Mireya Restrepo MD [address] [facility] [address] [place] [address] [facility]: 62-43-3518IQKULKDH SCREENDIABETES SCREENCleveland ClinicStart: 56-98-9242RQNIXKWD SCREENDIABETES SCREENCleveland ClinicStart: 08-19-2024 DIABETES SCREENDIABETES SCREENCleveland ClinicStart: 36-70-5666YAVIKKRR SCREEN DIABETES SCREENCleveland ClinicStart: 08-03-2024 End: 73-16-6658Zgpmtdh encounter myfzhdbyb69/02/2025 10:00 AM EDT Office Visit [facility] [address] [place] [address] Rashida Zarate NP [address] [place] [phone] Occlusion of left internal carotid artery (Primary Dx); Dyslipidemia (CMS/HCC); Cerebrovascular accident (CVA), unspecified mechanism (CMS/HCC)[facility] CWM FMComment on above:Occlusion of left internal carotid artery (Primary Dx); Dyslipidemia (CMS/HCC); Cerebrovascular accident (CVA), unspecified mechanism (CMS/HCC)Start: 06-28-2024 DIABETES SCREENDIABETES SCREENPortland ClinicStart: 06-21-2024 End: 21-15-0409Hhhktrn encounter spipahoqo85/18/2025 1:30 PM EST Office Visit Radiation Oncology [address] [place] [address] [place] [address] Kathrine Carpenter MD [address] [place] [address] [place] [address] FollowupRadiation OncologyComment on above:FollowupStart: 06-10-2024 End: 29-87-1375Qjwcrul encounter procedureRadiologyComment on above:XR SHOULDER GENERAL 3V OR MORE AP/TRUE AP/OTHER RIGHTRt shoulder / arthralgiaStart: 06-09-2024 End: 15-97-9401Ixhtryc encounter rxktejfcp45/06/2025 10:20 AM EST Office Visit [facility] [address] [facility] [address] [place] [phone] Carmen Neely MD [address] [facility] [address] [place] [address] [facility]: 05-24-2024 End: 78-45-6345Msdhlua encounter procedureNOMS FB ORTHOPAEDICSComment on above: S/P arthroscopy of right shoulder (Primary Dx); Internal derangement of shoulder, rightStart: 05-06-2024 End: 74-55-9656DG Shoulder - right WO contrastMR shoulder right wo IV contrast Imaging Routine Internal derangement of shoulder, right Expected: 05/06/2024 (Approximate), Expires: 05/06/2025[facility] Work Phone: Comment on above:Expected: 05/06/2024 (Approximate), Expires: 05/06/2025Start: 05-06-2024 End: 66-56-1421Bxifyos encounter procedureNOMS FB ORTHOPAEDICSComment on above: S/P arthroscopy of right shoulder (Primary Dx)Start: 01-01-2025Medicare Advantage Annual Wellness VisitMedicare Advantage Annual Wellness VisitPeoples Hospitaltart: 04-12-2024 End: 41-14-4078JQ Foot - left 2 ViewsXR foot 1 or 2 views left Imaging Routine Left foot pain Expected: 04/12/2024, Expires: 04/12/2025[facility] Work Phone: Comment on above:Expected: 04/12/2024, Expires: 04/12/2025Start: 04-12-2024 End: 21-95-3329Azmnecr encounter procedureNOMS CWM FMComment on above:Arrived Start: 03-23-2024 End: 63-27-0777Lbrktvf encounter procedureNOMS FB ORTHOPAEDICSComment on above: S/P arthroscopy of right shoulder (Primary Dx)Start: 02-29-2024 End: 28-69-4793Hranckz encounter procedureNOMS CWM FMComment on above:Arrived Start: 02-23-2024 End: 68-69-4020Lopkijk encounter procedureNOMS FB ORTHOPAEDICSComment on above: S/P arthroscopy of right shoulder (Primary Dx)Start: 02-09-2024 End: 11-00-2161Tgeyhas encounter cruhgzwja74/08/2024 11:30 AM EDT Procedure Visit [facility] Jr. Martin Dumas, [address] [place] [address] [facility] EX[facility] DEPStart: 02-02-2024 End: 00-06-0889XPG 12 leadECG 12 lead ECG Routine Preop examination Expected: 02/02/2024 (Approximate), Expires: 01/27/2025[facility] Work Phone: Comment on above:Expected: 02/02/2024 (Approximate), Expires: 01/27/2025Start: 21-15-7907TXKFW-19 Vaccine ( season)COVID- 19 Vaccine ()[facility] HealthStart: 70-20-5021DTHTX-19 Vaccine ()COVID-19 Vaccine ()[facility] SystemStart: 86-53-8000Xcyrl-19 Vaccine ()Covid-19 Vaccine ()[facility]2024 Influenza vaccinationInfluenza Vaccine (#1)[facility]: 12-28-2023 End: 43-24-6510Qggqeua encounter ldindhwqj36/26/2024 2:00 PM EDT Office Visit [facility] [address] [place] [phone] Jr. Martin Chen, [address] [address] ArrivedNODEACONESS INCARN[facility] ORTHOPAEDICSComment on above:ArrivedStart: 12-22-2023 End: 44-32-1206Nawnym-up tirecizjv59/20/2024 3:15 PM EDT Visit (SP) Office Hematology/Oncology [address] [place], [place] [phone] Esdras Cash MD [address] [place] [address] 18 week follow up for pet scan resultsHematology/OncologyComment on above:18 week follow up for pet scan resultsStart: 12-22-2023 End: 59-25-1025Hawckyk encounter xqpbkqpea43/20/2024 2:45 PM EDT Office Visit Radiation Oncology [address] [place] [address] Kathrine Carpenter MD [address] [place] [address] FollowupRadiation OncologyComment on above:FollowupStart: 12-18-2023 End: 79-67-5290ZKG W Auto Differential panel - BloodCOMPLETE BLOOD COUNT AND DIFFERENTIAL Lab Routine Cancer of base of tongue (HCC) Malaise and fatigue Expected: 12/18/2023 (Approximate), Expires: 03/18/2024[facility] Work Phone: Comment on above:Expected: 12/18/2023 (Approximate), Expires: 03/18/2024Start: 12-18-2023 End: 60-62-3795Vqldkpwoznmwc metabolic 2000 panel - Serum or PlasmaCOMPREHENSIVE METABOLIC PANEL Lab Routine Cancer of base of tongue (HCC) Malaise and fatigue Expected: 12/18/2023 (Approximate), Expires: 03/18/2024[facility] Work Phone: Comment on above:Expected: 12/18/2023 (Approximate), Expires: 03/18/2024Start: 12-18-2023 End: 44-86-1781Hlopabkawpu [Units/volume] in Serum or PlasmaTHYROID STIMULATING HORMONE Lab Routine Cancer of base of tongue (HCC) Malaise and fatigue Expected: 12/18/2023 (Approximate), Expires: 03/18/2024[facility] Work Phone: Comment on above:Expected: 12/18/2023 (Approximate), Expires: 03/18/2024Start: 12-15-2023 End: 18-61-7657Lsqdtyy encounter yroaegznh34/13/2024 9:00 AM EDT Appointment Radiology Pet CT [address] [place] [place] [address] Pet scan Radiology Pet CTComment on above:Pet scanStart: 11-17-2023 End: 94-40-0082Bebxdhv encounter iigmbbxbz08/16/2024 10:20 AM EDT Office Visit [place] [address] [place] [id number] Carmen Neely MD [address] [place] [address] [facility]Start: 52-46-2372MD CONTROLLED (<130/80)BP CONTROLLED (<130/80)[facility]: 53-01-8990Dzfemidvg vaccinationLUNG CANCER SCREENINGPeoples Hospitaltart: 19-23-6186Mbgygwizo for malignant neoplasm of lungLung Cancer ScreeningPeoples Hospitaltart: 94-97-9213TF CONTROLLED (<130/80)BP CONTROLLED (<130/80)[facility]: 77-45-6480SO CONTROLLED (<130/80)BP CONTROLLED (<130/80)[facility]: 05-06-2023 End: 49-05-9781Jwfpy 1996 panel - Serum or PlasmaLipid Panel Lab Routine Hyperlipidemia, unspecified hyperlipidemia type Expected: 05/06/2023 (Approx imate), Expires: 05/06/2024[facility] Service Area Work Phone: Comment on above:Expected: 05/06/2023 (Approximate), Expires: 05/06/2024Start: 75-70-2680IO CONTROLLED (<130/80)BP CONTROLLED (<130/80)[facility]: 86-91-8423Qackezela vaccinationLUNG CANCER SCREENINGPeoples Hospitaltart: 78-59-8384Bwqqihkbi for malignant neoplasm of colonColonoscopyOhioHealth Riverside Methodist Hospitalca Health SystemStart: 68-13-9369FQ CONTROLLED (<130/80) BP CONTROLLED (<130/80)[facility]: 69-24-9252MB CONTROLLED (<130/80) BP CONTROLLED (<130/80)[facility]: 11-42-7172Jfewfityrlud vaccination Pneumococcal Vaccine (3 of 3 - PCV20 or PCV21)[facility] Start: 22-78-8218Uhbzpngorazi Vaccine: 50+ (3 of 3 - PCV20 or PCV21)Pneumococcal Vaccine: 50+ (3 of 3 - PCV20 or PCV21)[facility]: 37-02-2796Xynuv-19 Vaccine ()Covid-19 Vaccine ()[facility]: 50-64-8181Wuasjqkfl vaccinationPeoples Hospitaltart: 01-09-6604HC CONTROLLED (<130/80)BP CONTROLLED (<130/80)[facility]: 26-18-3880OVB, Provider: Carmen Neely, Status: Pen, Time: 10:20 AMEPV, Provider: Carmen Neely, Status: Pen, Time: 10:20 AMMP-[facility] 250 DO Work Phone: Start: 72-69-0462ZC CONTROLLED (<130/80)BP CONTROLLED (<130/80)[facility]: 67-22-8763XK CONTROLLED (<130/80)BP CONTROLLED (<130/80)[facility]: 44-85-5938XC CONTROLLED (<130/80)BP CONTROLLED (<130/80)[facility]: 01-28-0412LM CONTROLLED (<130/80)BP CONTROLLED (<130/80)[facility]: 01-43-9423AA CONTROLLED (<130/80)BP CONTROLLED (<130/80)[facility]: 23-70-1364KK CONTROLLED (<130/80)BP CONTROLLED (<130/80)[facility]: 98-78-0049OX CONTROLLED (<130/80)BP CONTROLLED (<130/80)[facility]: 18-80-1585HT CONTROLLED (<130/80)BP CONTROLLED (<130/80)[facility]: 08-12-2022 End: 19-42-9656UWRZIRXBDJ BLDCREATININE BLD Lab Routine Oropharnyx cancer (HCC) Expected: 08/12/2022, Expires: 10/12/2022[facility] Work Phone: Comment on above:Expected: 08/12/2022, Expires: 10/12/2022Start: 69-35-3799FDXPN-19 Vaccine (4 - Pfizer series)COVID-19 Vaccine (4 - Pfizer series)[facility]: 80-99-5223GQ CONTROLLED (<130/80)BP CONTROLLED (<130/80)[facility]: 90-47-1802CP CONTROLLED (<130/80)BP CONTROLLED (<130/80)[facility]: 07-16-2022 End: 57-49-7672Ppvxdyywrnr [Units/volume] in Serum or PlasmaTSH BLD Lab Routine Cancer of base of tongue (HCC) Expected: 07/16/2022, Expires: 09/15/2022 [facility] Work Phone: Comment on above:Expected: 07/16/2022, Expires: 09/15/2022Start: 07-16-2022 End: 78-43-6854Xdbvbxwez (T4) [Mass/volume] in Serum or PlasmaT4/THYROXINE BLOOD Lab Routine Cancer of base of tongue (HCC) Expected: 07/16/2022, Expires: 09/15/2022[facility] Work Phone: Comment on above:Expected: 07/16/2022, Expires: 09/15/2022Start: 06-44-9701Abhbyvhxt vaccinationLUNG CANCER SCREENINGPeoples Hospitaltart: 37-01-8663MWU, Provider: Carmen Neely, Status: Pen, Time: 10:20 AMFUV, Provider: Carmen Neely, Status: Pen, [facility]: [facility] Work Phone: Start: 04-25-2022 End: 63-63-6972LQDSXMXXAE BLDCREATININE BLD Lab Routine Oropharnyx cancer (HCC) Expected: 04/25/2022 (Approximate), Expires: 06/25/2022[facility] Work Phone: Comment on above:Expected: 04/25/2022 (Approximate), Expires: 06/25/2022Start: 20-22-5420RLMIXJWULCDC (3 - PPSV23 if available, else PCV20)PNEUMOCOCCAL (3 - PPSV23 if available, else PCV20)[facility]: 45-11-5664GTOUGTEGHDNH (3 - PPSV23 or PCV20)PNEUMOCOCCAL (3 - PPSV23 or PCV20) [facility]: 48-99-9572QDZZSM NUC, Provider: KELSEY HHVI NUCLEAR 01,[id number], Status: Pen, Time: 12:00 PMSTRESS NUC, Provider: KELSEY YOLANDAI NUCLEAR 01,[id number], Status: Pen, Time: 12:00 PMMP-[facility] 250 DO Work Phone: Start: 79-62-8839NNPV, Provider: KELSEY YOLANDAI ULTRASOUND 01,[id number], Status: Pen, Time: 10:45 AMECHO, Provider: KELSEY YOLANDAI ULTRASOUND 01,[id number], Status: Pen, Time: 10:45 [facility] [address] [facility] Work Phone: Start: 01-03-2022 End: 84-87-0712HMC W Auto Differential panel - BloodCBC + DIFF Lab Routine Malaise and fatigue Oropharnyx cancer (HCC) Expected: 01/03/2022, Expires: [facility] Work Phone: Comment on above:Expected: 01/03/2022, Expires: 03/05/2022tart: 01-03-2022 End: 21-57-4812Hdzcajlmykabk metabolic 2000 panel - Serum or PlasmaCOMP METABOLIC PANEL Lab Routine Malaise and fatigue Oropharnyx cancer (HCC) Expected: 01/03/2022, Expires: 03/05/2022[facility] Work Phone: Comment on above:Expected: 01/03/2022, Expires: 03/05/2022tart: 01-03-2022 End: 57-38-3993I1/FTI/T4UT4/FTI/T4U Lab Routine Malaise and fatigue Oropharnyx cancer (HCC) Expected: 01/03/2022, Expires: 03/05/2022[facility] Work Phone: Comment on above:Expected: 01/03/2022, Expires: 03/05/2022tart: 01-03-2022 End: 42-35-0386Rkixvwhqiax [Units/volume] in Serum or PlasmaTSH BLD Lab Routine Malaise and fatigue Oropharnyx cancer (HCC) Expected: 01/03/2022, Expires: 03/05[facility] Work Phone: Comment on above:Expected: 01/03/2022, Expires: 03/05/2022tart: 09-62-1833Hhulxsumq vaccinationINFLUENZA (#1)[facility] Start: 12-26-2021 End: 14-30-0522Pgulzutzjnc [Units/volume] in Serum or PlasmaTSH BLD Lab Routine Oropharnyx cancer (HCC) Expected: 12/26/2021, Expires: 02/25/2022[facility] Work Phone: Comment on above:Expected: 12/26/2021, Expires: 02/25/2022tart: 12-26-2021 End: 84-80-8083Zfabdidbj (T4) [Mass/volume] in Serum or PlasmaT4/THYROXINE BLOOD Lab Routine Oropharnyx cancer (HCC) Expected: 12/26/2021, Expires: 02/25/2022 [facility] Work Phone: Comment on above:Expected: 12/26/2021, Expires: 02/25/2022tart: 12-22-2021 End: 28-57-8043LP PET/CT SKULL-THIGH SUBSEQUENTNM PET/CT SKULL-THIGH SUBSEQUENT Radiology Routine Oropharnyx cancer (HCC) Expected: 12/22/2021, Expires: 12/21/2022[facility] Work Phone: Comment on above:Expected: 12/22/2021, Expires: 12/21/2022Start: 09-24-2021 End: 41-71-9445Mnrlm metabolic 2000 panel - Serum or PlasmaBASIC METABOLIC PNL Lab Routine Oropharnyx cancer (HCC) Expected: 09/24/2021, Expires: 11/24/2021 [facility] Work Phone: Comment on above:Expected: 09/24/2021, Expires: 11/24/2021tart: 09-24-2021 End: 90-60-9740IZS W Auto Differential panel - BloodCBC + DIFF Lab Routine Oropharnyx cancer (HCC) Expected: 09/24/2021, Expires: 11/24/2021[facility] Work Phone: Comment on above:Expected: 09/24/2021, Expires: 11/24/2021tart: 09-16-2021 End: 57-58-4587AIX W Auto Differential panel - BloodCBC + DIFF Lab Routine Lower abdominal pain Cancer of base of tongue (HCC) Nausea Expected: 09/16/2021, Expires: 11/16/2021[facility] Work Phone: Comment on above:Expected: 09/16/2021, Expires: 11/16/2021tart: 09-16-2021 End: 75-13-3988Cnkohshmiieft metabolic 2000 panel - Serum or PlasmaCOMP METABOLIC PANEL Lab Routine Lower abdominal pain Cancer of base of tongue (HCC) Nausea Expected: 09/16/2021, Expires: 11/16/2021[facility] Work Phone: Comment on above:Expected: 09/16/2021, Expires: 11/16/2021tart: 09-02-2021 End: 24-33-9993TUX W Auto Differential panel - BloodTrihealth Work Phone: Comment on above:Expected: 09/02/2021, Expires: 11/02/2021tart: 09-02-2021 End: 17-22-4510Zzzxtariqnekd metabolic 2000 panel - Serum or PlasmaTrihealth Work Phone: Comment on above:Expected: 09/02/2021, Expires: 11/02/2021tart: 08-26-2021 End: 89-48-4591YGT W Auto Differential panel - BloodCBC + DIFF Lab Routine 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) Oropharyngeal dysphagia Chronic obstructive pulmonary disease, unspecified COPD type (HCC) Heart disease Cancer related pain Anxiety and depression Severe protein-calorie malnutrition (HCC) Malaise and fatigue Hypertension, unspecified type Tachycardia Expected: 08/26/2021, Expires: 10/26/2021[facility] Work Phone: Comment on above:Expected: 08/26/2021, Expires: 10/26/2021tart: 08-26-2021 End: 97-13-0145Vbuzfppcdhemr metabolic 2000 panel - Serum or PlasmaCOMP METABOLIC PANEL Lab Routine 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) Oropharyngeal dysphagia Chronic obstructive pulmonary disease, unspecified COPD type (HCC) Heart disease Cancerrelated pain Anxiety and depression Severe protein-calorie malnutrition (HCC) Malaise and fatigue Hypertension, unspecified type Tachycardia Expected: 08/26/2021, Expires: 10/26/2021[facility] Work Phone: Comment on above:Expected: 08/26/2021, Expires: 10/26/2021tart: 08-12-2021 End: 22-57-5528DGN W Auto Differential panel - BloodCBC + DIFF Lab Routine Cancer of base of tongue (HCC) Malaise and fatigue Expected: 08/12/2021, Expi res: [address] [place] [address] Work Phone: Comment on above:Expected: 08/12/2021, Expires: 10/12/2021tart: 08-12-2021 End: 70-76-5835Amogayxvkibge metabolic 2000 panel - Serum or PlasmaCOMP METABOLIC PANEL Lab Routine Cancer of base of tongue (HCC) Malaise and fatigue Expected: 08/12/2021, Expires: [address] [place] [address] Work Phone: Comment on above:Expected: 08/12/2021, Expires: 10/12/2021tart: 08-12-2021 End: 11-32-1916R1/FTI/T4UT4/FTI/T4U Lab Routine Cancer of base of tongue (HCC) Malaise and fatigue Expected: 08/12/2021, Expires: 10/12/2021[facility] Work Phone: Comment on above:Expected: 08/12/2021, Expires: 10/12/2021tart: 08-12-2021 End: 64-59-5541Dsfxejtrnov [Units/volume] in Serum or PlasmaTSH BLD Lab Routine Cancer of base of tongue (HCC) Malaise and fatigue Expected: 08/12/2021, Expires : 10/12/2021[facility] Work Phone: Comment on above:Expected: 08/12/2021, Expires: 10/12/2021tart: 08-01-2021 End: 64-58-6746DTC W Auto Differential panel - BloodCBC + DIFF Lab Routine Cancer of base of tongue (HCC) Malaise and fatigue Expected: 08/01/2021, Expi res: 10/01/2021[facility] Work Phone: Comment on above:Expected: 08/01/2021, Expires: 10/01/2021tart: 08-01-2021 End: 32-18-3345Kfhukpeuudpyy metabolic 2000 panel - Serum or PlasmaCOMP METABOLIC PANEL Lab Routine Cancer of base of tongue (HCC) Malaise and fatigue Expected: 08/01/2021, Expires: 10/01/2021[facility] Work Phone: Comment on above:Expected: 08/01/2021, Expires: 10/01/2021tart: 08-01-2021 End: 56-06-7840L2/FTI/T4UT4/FTI/T4U Lab Routine Cancer of base of tongue (HCC) Malaise and fatigue Expected: 08/01/2021, Expires: [address] [place] [address] Work Phone: Comment on above:Expected: 08/01/2021, Expires: 10/01/2021tart: 08-01-2021 End: 12-22-6244Mqlwhovojtt [Units/volume] in Serum or PlasmaMULTICARE [facility] BLD Lab Routine Cancer of base of tongue (HCC) Malaise and fatigue Expected: 08/01/2021, Expires : [facility] Work Phone: Comment on above:Expected: 08/01/2021, Expires: 10/01/2021tart: 49-08-4351YERBM-19 VACCINE (4 - Booster)COVID-19 VACCINE (4 - Booster)[facility]: 72-01-0199EQXDP-19 VACCINE (4 - Booster)COVID-19 VACCINE (4 - Booster)[facility]: 92-60-8441CRYDI-19 VACCINE (4 - Booster)COVID-19 VACCINE (4 - Booster)[facility]: 77-78-7970JCS Vaccine (1 - 1-dose 60+ series)RSV Vaccine (1 - 1-dose 60+ series)[facility]: 62-84-9753GMVVOZHD VACCINE (2 of 2)SHINGRIX VACCINE (2 of 2) [facility]: 00-47-6523Xamxdb Vaccines (2 of 2)Zoster Vaccines (2 of 2)[facility]: 63-94-9975CXDSQIZW CANCER SCREENING DISCUSSIONPROSTATE CANCER SCREENING DISCUSSIONPeoples Hospitaltart: 09-19-2015 Prostate specific antigen measurementProstate Cancer Screening Discussion [facility]: 84-79-8436WGNEKEBO VACCINE (1 of 2)SHINGRIX VACCINE (1 of 2)[facility]: 18-43-7295ADRMTEERB (FIT-DNA)COLOGUARD (FIT-DNA) [facility]: 55-41-5864CyrtoiggaykCECYOQXXGMFHfehvlveu ClinicStart: 69-95-8507UKLTIQWXZY CANCER SCREENINGCOLORECTAL CANCER SCREENINGMad[facility] Health Start: 16-77-7921AJ COLONOGRAPHYCT COLONOGRAPHYPeoples Hospitaltart: 2005 FECAL OCCULT BLOODFECAL OCCULT BLOODPeoples Hospitaltart: 99-19-3298Bxhemqrm specific antigen measurementProstate Cancer Screening DiscussionMadison Health Start: 65-97-1864Vucfuklvo for malignant neoplasm of colonPeoples Hospitaltart: 38-28-4094DKWFSMAYZNSEUEQYMSXXWMTUTJTukkipqoc ClinicStart: 88-09-5949Hzeae 1996 panel - Serum or PlasmaLipid ScreeningPeoples Hospitaltart: 52-75-8353Qkcmb panelLipid ScreeningPeoples Hospitaltart: 25-67-8034TVRTM SCREENLIPID SCREEN [facility]: 79-48-0898Yaizaekjre acid therapyALPHA-1 ANTITRYPSIN DEFICIENCY SCREENINGPeoples Hospitaltart: 12-45-2831Nozle microalbumin profile DTAP,TDAP,TD (1 - Tdap)[facility]: 64-84-9071NVYLWF PCP TEAM CHRONIC DISEASE VISITANNUAL PCP TEAM CHRONIC DISEASE VISITPeoples Hospitaltart: 14-15-3963Bhovaos ScreeningAnxiety ScreeningPeoples Hospitaltart: 87-59-4445YB CONTROLLED (<130/80)BP CONTROLLED (<130/80)[facility]: 1978 Diabetes mellitus screeningDiabetes ScreeningPremier Health Start: 64-42-6380VKEZJJAPO C SCREENINGHEPATITIS C SCREENINGMad[facility] Health Start: 07-81-4216Ydkmygnkx C screeningHepatitis C ScreeningPremier HealthStart: 88-32-2167NEB SCREENINGHIV SCREENINGPeoples Hospitaltart: 20-71-3872DUX screeningHIV ScreeningPeoples Hospitaltart: 33-60-8277LGFAXRCUKX SPIROMETRYPeoples Hospitaltart: 88-38-9291Leelmavptv ScreeningDepression ScreeningKettering Health Troy SystemStart: 27-60-2407PLM Vaccines (1 of 1 - Standard series)MMR Vaccines (1 of 1 - Standard series)[facility] Start: 31-35-9066NOM screeningHIV ScreeningPremier Health Start: 79-66-8577Rgexk panelLipid PanelPremier HealthStart: 05-18-1961Medicare Annual Wellness (AWV)Medicare Annual Wellness (AWV)[facility]Start: [facility]1961Medicare Annual Wellness VisitMedicare Annual Wellness Visit (AWV)[facility] HealthStharrisonburg: 05-93-0776Sayukshmm for malignant neoplasm of colonUnSelect Medical Specialty Hospital - Cleveland-FairhillStart: 42-51-7928Ysgafc Use: CardiovascularStatin Use: CardiovascularProMedica Health SystemStart: 57-79-3779Rvkbygd CounselingTobacco CounselingKettering Health Troy SystemBLOOD CULTURE 1BLOOD CULTURE 1 Lab Routine 08/30/2024 3:09 PM EDTNOMS HealthcareBLOOD CULTURE 2BLOOD CULTURE 2 Lab Routine 08/30/2024 4:10 PM EDTNOMS Healthcare End: 27-95-0390ZT CHEST W IVCONCT CHEST W IVCON Radiology Routine Oropharnyx cancer (HCC) 1 Occurrences starting 02/25/2022 until 03/27/2023[facility] Work Phone: Comment on above:1 Occurrences starting 02/25/2022 until 03/27/2023 End: 07-80-6596Sj soft tissue neck w/contrast materialCT NECK SOFT TISSUE W IVCON Radiology Routine Oropharnyx cancer (HCC) 1 Occurrences starting 022 until 03/27/2023[facility] Work Phone: Comment on above:1 Occurrences starting 02/25/2022 until 03/27/2023 End: 03-89-3481ZMQ+CT Guidance for localization of tumor of Skull base to mid-thigh-- W 18F-FDG IVNM PET/CT SKULL-THIGH SUBSEQUENT Radiology Routine Cancer of base of tongue (HCC) Malaise and fatigue 1 Occurrences starting 08/18/2023 until 5[facility] Work Phone: Comment on above:1 Occurrences starting 08/18/2023 until 09/16/2024PT PLAN OF CARE CERTIFICATIONPT PLAN OF CARE CERTIFICATION Procedures Routine Current smoker Physical deconditioning Ordered: 08/09/2021 [facility] Work Phone: Comment on above:Ordered: 08/09/2021 End: 80-68-3246Dgugwetemm exam abdomen 2 viewsXR ABDOMEN 2V ROUTINE SUPINE W UPRIGHT/DECUB/CTL Radiology Routine Lower abdominal pain 1 Occurrences starting 09/16/2021 until 10/16/2022[facility] Work Phone: Comment on above:1 Occurrences starting 09/16/2021 until 10/16/2022 End: 51-02-4002XD Shoulder - right 3 ViewsXR SHOULDER GENERAL 3V OR MORE AP/TRUE AP/OTHER RIGHT Radiology Routine Pain 1 Occurrences djdmhbny33/04/2025 until 6[facility] Work Phone: Comment on above:1 Occurrences starting 06/07/[address] [place] [address] Immunizations Immunization DateImmunizationNotesCare EjacptglBijaddil62-71-5239qwscqsg toxoid, reduced diphtheria toxoid, and acellular pertussis vaccine, nadiaLisa Zarate EXTRUSION PROCESS OPERATOR Work Phone: [facility] HospitalAncblychmn58-16-5012zcbpehini, seasonal, injectable, preservative freeGildardo Lacy MD Work Phone: noJohn J. Pershing VA Medical CenterBtostzwdfx38-95-8904orhaqaovp virus vaccine, unspecified formulationGildardo Lacy MD Work Phone: noJohn J. Pershing VA Medical CenterHuflgzrknz75-70-2087tfkaxoggoni syncytial virus (RSV) vaccine, adjuvanted (AREXVY)Esdras Cash MD Work Phone: [facility] HealthJxejxl37-88-1030zvvhgb vaccine recombinant Esdras Cash MD Work Phone: [facility] HealthUgqvel25-09-5336Uyztqspzt, injectable, [employer] Canine Kidney, preservative free, quadrivalentEsdras Cash MD Work Phone: [facility] HealthDrtlao77-46-4185bhfwcdsgw virus vaccine, unspecified formulationDENIA Carpenter MD Work Phone: [facility] HealthPrqxeg45-26-4945gedlvgywl, injectable, quadrivalent, preservative Marilu Cash MD Work Phone: [facility] HealthYqxxxy84-02-5045jbkhsawrq virus vaccine, unspecified Jerry Carpenter MD Work Phone: [facility] HealthYqtlzt82-37-4274woeasohfx, injectable, quadrivalent, preservative Marilu Cash MD Work Phone: [facility] HealthMwqech99-69-5281DLCHM-80 vaccine (UNSPECIFIED)Esdras Cash MD Work Phone: [facility] HealthYcnejp82-34-9451CCEQS-29 vaccine, age 12+ yr (PFIZER-BIONTECH - PURPLE TOP)Nathayl Biggs APRN.GROUP HOME MANAGER Work Phone: [facility] HealthNcgeyg42-30-3456XPJXZ-56 vaccine, age 12+ yr (PFIZER-BIONTECH - PURPLE TOP)Esdras Cash MD Work Phone: [facility] HealthPmzocj88-35-7074THOES-82 vaccine (UNSPECIFIED)Esdras Cash MD Work Phone: [facility] HealthFkassr84-43-7439VYQZJ-96 vaccine, age 12+ yr (PFIZER-BIONTECH - PURPLE TOP)Esdras Cash MD Work Phone: [facility] HealthMywlax90-30-9571jcvcfdlrn, injectable, quadrivalent, preservative Marilu Cash MD Work Phone: [facility] HealthOwqelc61-62-7502vfdlajilm, seasonal, injectableEsdras Cash MD Work Phone: [facility] HealthTuizqe35-21-9413hjsdfymzx, injectable, quadrivalent, preservative Marilu Cahs MD Work Phone: [facility] HealthMixilp01-65-1219xrqafdb toxoid, reduced diphtheria toxoid, and acellular pertussis vaccine, adsorbedLori Andre [facility] HospitalOgwbak60-98-1160wqphei vaccine recombinantLori Andre [facility] HospitalObwhaj89-70-4909dythofnuzh skin test; purified protein derivative solution, intradermalLisa Elliot LY Work Phone: [facility] HospitalEuflnxxlhz81-56-2546vgjhhwdaatp influenzae type b vaccine, PRP-T conjugateEsdras Cash MD Work Phone: [facility] HealthIwpczj55-07-4809hrkxeqfumkryz B vaccine, recombinant, OMV, adjuvantedsEdras Cash MD Work Phone: [facility] HealthBkscjm63-71-4953zxfkbrpgpuffa oligosaccharide (groups A, C, Y and W-135) diphtheria toxoid conjugate vaccine (MCV4O)Esdras Cash MD Work Phone: [facility] HealthQnkafc30-50-8161hstaegiujyueq polysaccharide (groups A, C, Y and W-135) diphtheria toxoid conjugate vaccine (MCV4P)Esdras Cash MD Work Phone: [facility] HealthLavupe94-31-5032ajfhcwhxctax conjugate vaccine, 13 valentEsdras Cash MD Work Phone: [facility] HealthJyjora57-04-9961ukkifcyaw, injectable, quadrivalent, preservative freeEsdras Cash MD Work Phone: [facility] HealthZsgndv82-33-2359srdzujdjf, injectable, quadrivalent, contains preservativeEsdras Cash MD Work Phone: [facility] HealthRdrwsx75-42-9192pjcpdfpuydiv polysaccharide vaccine, 23 valentEsdras Cash MD Work Phone: [facility] Payers DatePayer CategoryPayerPolicy [id number] Health InsuranceDEEC[facility]ITALO [id number] (Managed Care) [id number] 2020MedicareHUMANA MEDICARE HUMANA MEDICARE PPO [id number] 2019-Present [phone] [place] [id number] [id number] 2019Medicare HMO HUMANA MEDICARE [id number] 2018Medicare [id number] Health [id number] [id number] 2..[id number] [id number]64Igebozv68454899 2.0.1.429035.3.579.2.16525-94-0171Dktnyqg47762832 2.0.1.652446.3.579.2.61056-74-1231Vxuxwke31881289 2.16.840.1.429601.3.579.2.672632-09-0432Jlsandf034443632 2.16.840.1.417674.3.579.2.93791-35-4020Atccndk386701442 2.16.840.1.172279.3.579.2.80517-84-2501Apafbtn7963813 2.16.840.1.098748.3.579.2.76000-18-8779Shtpxog7536076 2.16.840.1.436378.3.579.2.65096-50-2566Bukowbe1035791 2.16.840.1.851757.3.579.2.04460-52-9681Aypzgex6889441 2.16.840.1.941962.3.579.2.37651-53-5608Sqketxr5519132 2.16.840.1.939094.3.579.2.36307-46-4177Fzxjslx6124391 2.16.840.1.714235.3.579.2.38600-05-8027Iepezuo4043816 2.16.840.1.200498.3.579.2.18343-35-5906Hfqfopg0508949 2.16.840.1.405590.3.579.2.05073-25-6402Gvzlzgh91625965 2.16.840.1.193730.3.579.2.108396-64-6793Lxjvldh919441126 2.16.840.1.492151.3.579.2.442221-92-0440Xtfcwoa636878173 2.16.840.1.693480.3.579.2.257994-98-9819Bumvoyy372657999 2.16.840.1.156960.3.579.2.493086-00-9391Jvozvvw003543073 2.16.840.1.481452.3.57[id number] 2.16.840.1.069946.3.579.2.13[id number] 2.16.840.1.159972.3.579.2.426992-13-1154Gosinpe897088527 2.840.1.874072.3.579.2.942411-07-3326Ahqhomu123072317 2.840.1.500195.3.579.[id number] 2.840.1.601561.3.579.2.827826-53-8509Tyfbejm11172815 2.840.1.833893.3.579.2.631826-84-1931Rgfghra37703315 2.840.1.509782.3.579.2.260354-37-9452Zxoelpv46136772 2.840.1.248950.3.579.2.097916-53-7546Oxiautd51825511 2.840.1.368571.3.579.2.156854-07-9372Cietvxw28353501 2.840.1.515724.3.579.2.324564-26-8994Jyagzdn0517409 2.840.1.876371.3.579.2.114828-38-5218Zgocoxx0448724 2..840.1.995805.3.579.2.488386-71-7250Sdmhoag6839040 2.16840.1.391929.3.579.2.152776-76-1356Ksbtkan6195984 2..840.1.517434.3.579.2.149243-66-0694Vdanwms2091591 2.16.840.1.742123.3.579.2.659096-89-5233Bmbbmlt6150964 2..840.1.100065.3.579.2.457642-57-7899Cevjybc3948047 2..840.1.104942.3.579.2.414873-12-7373Ggcqfnl3410848 2..840.1.294163.3.579.2.270016-79-6861Oomoppa1174764 2..840.1.038304.3.579.2.321147-53-7831Nfwwqdx6495874 2..840.1.587082.3.579.2.218273-06-9210Axaegcl414244899 2..840.1.781758.3.579.2.38302-78-1684Sehjipc Health OcivqszmsG71261880Zeiwttr [id number] t98q8w22-740q-6168-8685-b229041654v7Dyhudfv24380132 2.0.1.708241.3.579.2.531 Social History DateTypeDetailFacilityStart: 07-27-2020 End: 88-69-5361Curnovt smoking status NHISSmokes tobacco dailyMadison Health Start: 83-08-2250Wmxhkeh of tobacco useCigarette SmokerPeoples Hospitaltart: 07-27-2020 End: 15-17-8192Toakfmkbwm smoked current (pack per day) - Mkehtjri7Mwnzovbrj ClinicComment on above:1 pack of cigarettes every 4-5 days;quit 05/22/22;Start: 07-27-2020 End: 40-63-9400Maqfrgn use and exposureSmokeless tobacco non-userPeoples Hospitaltart: 07-30-2021 End: 78-67-2215Fomppub intakeCurrent drinker of alcohol (finding)[facility]: 39-53-6916Cvqxoqk SDOH Alcohol Commentnot weeklyMadison Health Start: 06-11-2021 End: 89-77-4025Hvigbqm Commentdown to 05/13 ppdPeoples Hospitaltart: 1960 Sex Assigned At BirthNot on filePeoples Hospitaltart: 02-18-2021 End: 88-58-6961Tyuwpifd to SARS-CoV-2 (event)Not sureMadison HealthHistory of tobacco usePassive smokerPeoples Hospitaltart: 09-16-2022 End: 39-87-3008Hvwqktx use panelPeoples Hospitaltart: 07-16-2020 End: 87-23-9406Ljcoj Depression Screening Exltumiiqa7Flsidfoer ClinicStart: 05-06-2023 End: 43-78-3815Gkrcvbh intakeLifetime non-drinker (finding)[facility] Work Phone: Start: 51-19-0132Lopchsl smoking status NHISSmoker (finding)[facility]: 91-69-1794Kre Assigned At MaleSt. Anthony's Hospitaltart: 06-75-0078Fiyaltc Commentrarely [facility]: 88-10-8137Gkrkjfz Glaesdp45-67 cigarettes a dayCENTRAL VALLEY [facility] HealthcareStart: 22-70-8188Jdxwfxo CommentCaffine intake: noneNOMS Healthcare Start: 16-98-5312Uowoawj smoking status NHISEx-smokerPeoples Hospitaltart: 82-15-4873Aznkiwk CommentQuit 06/12/24Pe[facility] Hospitaltart: 11-02-2023 End: 87-87-3088Cventhzpz beverage intakeEx-drinker (finding)[facility] SystemStart: 54-51-4995Nuhiooi Comment1 pack every 5 days reported 08/15/2021 [facility] SystemStart: 80-23-3707Prrifhq Comment01/19/18, sober as can be [facility] FansUnite SystemStart: 15-15-2687IcxMjxj (finding)[facility] Medical Equipment Procedure CodeEquipment CodeEquipment Original TextEquipment IdentifierDatesStnt St[facility] Suresha [id number] Rpl [id number] - [id number], [id number] FDAStart: 77-51-4019Okuz [facility] Suresha [id number] Rpl [id number]+Cmt - [id number] - [id number]: 09-28-2019 Functional Status ChdrOcrccjahjiZwzmzvPjeljmqm37-41-1815Kansqqz Health Questionnaire 2 item (PHQ- 2) [Reported]Christian HospitalKpktwafncl99-68-8990TMO-0GBO0HICNPG Mild (5-9)[place] [address] DO Work Phone: [phone] you deaf, or do you have serious difficulty hearingNo 06/28/2021 12:57 PM Loree Matias RN [facility] SystemTcbfjz16-19-3837Fms you blind, or do you have serious difficulty seeing, even when wearing glassesNo 06/28/2021 12:57 PM Loree Matias RN [facility]02-25-2022Do you have serious difficulty walking or climbing stairsNo 06/28/2021 12:57 PM Loree Matias RN [facility] 96-41-3131Sd you have difficulty dressing or bathingNo 06/28/2021 12:57 PM Loree Matias RN [facility] SystemDpthhi21-25-6669Tdfvmuk of a physical, mental, or emotional condition, do you have difficulty doing errands alone such as visiting a physician's office or shoppingNo 06/28/2021 12:57 PM Loree Matias RN [facility]CBrecksville [facility] Mental Status OjseOiqysscdaqRutcxsEwmptfhr95-25-6129Hlithlp of a physical, mental, or emotional condition, do you have serious difficulty concentrating, remembering, or making decisionsNo 06/28/2021 12:57 PM Loree Matias RN [facility] Clinical Notes 11-27-2014 to 03-14-2025 Note Date & WpenPukaSetkbpxp41-31-3108 NoteHNO ID: [id number] Author: CYNTHIA MEADOWS RT(R) Service: ? 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 Anesthesia: No PERIPHERAL IV DATA: Not applicable SIGNED BY: RT Jose Alfredo(R) March 14, 2025 2:02 [facility]11-03-2025 NoteHNO ID: [id number] Author: AURA LOGAN RD Service: ? Author Type: Registered Dietitian Type: Progress Notes Filed: 03/06/2025 14:04 Note Text: NUTRITION THERAPY ONCOLOGY NOTE Initial Assessment RECOMMENDED [...] of 85 grams protein per day and 5194-7761 kcals per day Recommend 3-4 protein shakes per day. Trial Boost [facility],samples provided strawberry and vanilla. Can use Commercial [...] Samples provided, coupons. Referral(s): none Nutrition Monitoring AND Evaluation: weight status, bowel regulation, hydration status, tolerance to nutrition support (ONS/EN), biochemical markers, management of nutrition impact symptoms. 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 PMH: Oropharynx and bilateral neck RT 22, COPD, anxiety, chronic migraine, L1 verebra fx, COPD, COVID19, HTN, TIA, depression, [...] Ensure or Premier protein. D: Chicken wings, lao fries, or sobeida beef salad: beef, cucumber, tomato cashews and rice Sn: Often does not eat snacks. Likes tajik peanuts and cashews Fluids: 40 of sports [...] assess - Family not present, Sister from [place] present during assessment, helps when needed. Instruction [...] oz) Estimated body mass index is 15.91 kg/m? as calculated from the following: Height as of 06/10/24: 177.8 cm (5' 10 ). Weight as of this encounter: 50.3 kg (110 lb 14.3 oz). Resting Metabolic Rate: 1295 Weight Change: Patient with significant weight loss. 16.9% wt change in 3months: Severe 20% wt change in <1year. Estimated Nutritional needs: Dosing Weight: 50.3 kg Estimated kilocalorie needs: kilocalories determined by 35-40 kcal/kg Estima (more content not included)...[facility]11-03-2025 Note Education (NUTRSA) ALEJO FLOYD ([id number]) 1960 M Date Time Provider Department 03/06/25 10:30 AM AURA LOGAN Reason for Visit: Nutrition Assessment [1591] Primary Visit Diagnosis:Head and neck cancer (HCC) [C76.0] Other Visit Diagnosis:Severe protein-calorie malnutrition (HCC) [E43] Order(s):CONSULT TO ONCOLOGY NUTRITION [7614266] Order #: [id number]: 1 During your visit today, we recorded the following information about you: Weight 50.3 kg Allergies As of Date: 03/06/2025 (No Known Allergies) Date Reviewed: 03/06/2025 Reviewed by: Aura Logan RD - Fully Assessed Prescriptions as of 03/06/2025 - clopidogrel (PLAVIX) 75 mg tablet Take [...] mg by mouth at bedtime as needed. Encounter Status:Closed by AURA LOGAN on 03/06/25[facility] 02-21-2025 NoteHNO ID: [id number] Author: Kathrine CARPENTER MD Service: ? 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 Subjective Patient ID: Alejo Floyd is a 64 y.o. 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 Pt had xrays with [facility] back in july. Patient had injured his [...] vertebra (HCC) COPD (chronic obstructive pulmonary disease) ([facility]) COVID-19 12/28/2020 HTN (hypertension) Hx of transient ischemic attack (TIA) (last ~2015) Incisional hernia Major depressive disorder Mass of epiglottis Mass of tongue 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[facility]) Pharyngeal lesion Right otitis media with effusion Seasonal allergic rhinitis due to pollen SVT (supraventricular tachycardia) ([facility]) Tongue cancer ([facility]) Medications Current Outpatient Medications: albuterol (2.5 MG/3ML) [...] each day, Disp: 60 each, Rfl: 5 Iikburaaxvy-Vchfbyepo-Rnnfml (Trelegy Ellipta) 100-62.5-25 MCG/ACT aerosol powder , [...] understanding. Jl Shepherd DPM documented in this [facility]08-29-2025 Telephone encounter Note* Telephone Encounter - Kaela Negrete DO - 12/30/2024 4:12 PM EDT Erx sent [facility] Pepszuxtqw05-85-4589 Miscellaneous Notes* Telephone Encounter - Kaela Negrete [...] - Kenan Any questions call Alejo at [phone] documented in this [facility]08-29-2025 Telephone encounter Note* Telephone Encounter - Cr Aldrich - 12/30/2024 4:00 PM EDT Alejo called - he is asking for a script or new sample of recent inhaler given to him. (I could not understand the name of the inhaler) I apologize, I asked him to spell it but he wasn't home. [facility] - [place] Any questions call Alejo at [phone] [facility] HospitalZfucueupln13-87-5521 Telephone encounter Note* Telephone Encounter - Cr Aldrich - 12/21/2024 4:39 PM EDT Medical service co called - they need an actual script sent - she said it needs to have , POC setting at [address] [facility] HospitalFumwqvjuoh86-52-5240 Miscellaneous Notes* Telephone Encounter - Cr Aldrich - 12/21/2024 4:39 PM EDT Medical service co called - they need an actual script sent - she said it needs to have , POC setting at [address] documented in this encounterChristian HospitalBnehuzhyrf25-13-1030 History of Present illness Narrative* Kaela Negrete, - 12/21/2024 2:15 PM EDT Images from the original note were not included. Alejo Floyd presents today for evaluation in regards to COPD and chronic hypoxic respiratory failure. The patient does have known prior history of COPD. He is currently using Breo. He states he has been on Breo since the early 1999s. At that time he did undergo wedge [...] (last ~2016) Incisional hernia Major depressive disorder Mass of [...] I will write an order to the [facility] for a POC at today's office visit. Tobacco use -- he does continue to smoke on a daily basis. He does have a 55 pack-year history of smoking. We did have a 4 minute discussion regarding the importance of smoking cessation at today's office visit. Follow up in about 3 months (around 03/23/2025) for COPD. Kaela Negrete DO documented in this encounterChristian HospitalOjatpbptqd43-07-3667 NoteHNO ID: [id number] Author: Kathrine CARPENTER MD Service: ? 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 Doing fairly well. No evidence of recurrence. Stable right neck soft tissue changes from prior radiation treatment/retreatment. Continue conservative care. Plan to see patient back in 6 months. Signed by: Kathrine Carpenter MD cc: Gildardo Lacy MD ([facility]) [address] [place] [address] Dr. Bagley documented in this encounterMadison Health08-07-2025 NoteSubjective Patient seen today for post operative [...] the past 36 hours). No follow-ups on file.[facility]07-18-2025 NoteARCH CEREBRAL CAROTID ANGIOGRAM Post Procedure Note Date: 11/18/2024 Location: [facility] (Cath) Name: Alejo Floyd, : 1960, Diagnosis Pre-op Diagnosis * Symptomatic stenosis of right carotid artery [I65.21] * Carotid stenosis, bilateral [I65.23] * PAD (peripheral artery disease) [I73.9] Surgeons Primary: Carolyn Mcfarland MD Procedures CAROTID ANGIOGRAM Procedure Summary Anesthesia: Moderate Sedation Estimated Blood Loss: 20 mL Total IV Fluids: mL Drains: * None in log * Staff: Vacuum Extractor Operator: Darien Golden RN Scrub Person: RT Teresa Extractor Loader And Unloader: RT Carlos Eduardo Invasive Nurse: Mac Shaver [...] right common femoral artery. Micropuncture then 6 Iranian sheath inserted. A wire and pigtail catheter were placed in the ascending aorta. Angiogram done for the ascending aorta and the arch. Berenstein catheter was inserted after that and catheterize [...] PACU - hemodynamically sta (more content not included)...[facility]07-17-2025 NoteSpoke with Bartolo and he stated he spoke Cassabianca and stated no clearance was need for procedure scheduled for [facility]/18[facility]24[facility]24 NoteDEPARTMENT OF VASCULAR SURGERY HPI Alejo Floyd is a 64 y.o. male who presents today for follow-up evaluation for carotid stenosis and PAD. With respect to carotid disease patient does report that in May and then again in July this past year he developed sudden onset left-sided leg weakness and was seen at [facility]. He reports he was diagnosed with a TIA both times. I obtained records from [facility] and appears he was diagnosed with a [...] CTA and MRI from July 2024 at [facility]. Patient has over 50-69% stenosis which has been consistent with 2 different ultrasounds with MRI evidence of subacute stroke on the right via MRI. Reviewed case with Dr. Mcfarland, at this time we will proceed with transfemoral carotid/cerebral angiogram with carotid stenting (with distal embolic protection). Given his hostile neck transfemoral approach most appropriate. Echo done at [facility] in July EF 50-55% no significant valvular disease His PAD is stable. He has known LLE moderate occlusive disease but is free of symptoms. Will continue medical management GDMT: DAPT, statin If recurrent left-sided symptoms occur patient advised to present to the ED immediately Electronically signed by: Vale Chirinos PA-C Physician Mine Engineering Manager Vascular and Wound Surgery 10/31/2024 This note was created with the assistance of a speech-recognition program. While intending to generate a document that accurately reflects the content of the encounter, no guarantee can be provided that every mistake has been identified and corrected by editing [1] No past medical his (more content not included)...[facility]06-17-2025 Telephone encounter Note* Telephone Encounter - Gildardo Lacy MD - 10/18/2024 3:54 PM EDT [facility] HospitalBqtiycfpsy51-49-6680 Miscellaneous Notes* Telephone Encounter - Gildardo Lacy MD - 10/18/2024 3:54 PM EDT * Telephone Encounter - Gildardo Lacy MD - 10/17/2024 4:18 PM EDT New referral in chart. * Telephone Encounter - NANCY HOOD - 10/17/2024 3:19 PM EDT Patient called requesting referral to new top stop attacher due to Samsa leaving. clm documented in this encounterChristian HospitalGslehhrfmk78-91-8779 Telephone encounter Note* Telephone Encounter - Gildardo Lacy MD - 10/17/2024 4:18 PM EDT New referral in chart. [facility] HospitalBxgmxvqvlf29-18-4086 Telephone encounter Note* Telephone Encounter - NANCY HOOD - 10/17/2024 3:19 PM EDT Patient called requesting referral to new top stop attacher due to Samsa leaving. clm [facility] HospitalRkhlcrbajl85-87-5565 History of Present illness Narrative* Gildardo Lacy [...] Ambulatory referral to Pulmonology documented in this encounterChristian HospitalJodeqkdsoi95-55-3969 History of Present illness Narrative* Carmen Neely [...] smoking. He follows with vascular surgery in [place]. He is on dual antiplatelet therapy and on statin. He has not had any recent lab data but had a visit to [facility] emergency department for what he described as [...] bottles Assessment/Plan 1. PVD (peripheral vascular disease) ([facility]-HCC) Follow Up In Cardiology 2. Current smoker 3. Dyspnea, unspecified type 4. Hyperlipidemia, unspecified hyperlipidemia type Scribe Attestation By signing my name below, I Kathleen White RN , Scribe attest that this documentation has been prepared under the direction and in the presence of Carmen Neley MD. Provider Attestation - Scribe documentation All medical record entries made by the Scribe were at my direction and personally dictated by me. Ihave reviewed the chart and agree that the record accurately reflects my personal performance of the history, physical exam, discussion and plan. documented in this encounterPremier Health Work Phone: [phone] 273-161605-12-2025 Instructions* Patient Instructions* Moon Kan LPN - [...] time of your visit. documented in this encounterPremier Health Work Phone: [phone]) 647-485605-08-2025 History of Present illness Narrative* Gildardo Lacy MD - 09/08/2024 12:01 PM EDTAssociated Problem(s): Pneumonia Symptoms improved and monitor. * Gildardo Lacy MD - 09/08/2024 12:00 PM EDTAssociated Problem(s): COPD (chronic obstructive pulmonary disease) ([facility]) Recent exacerbation but improved. Complete steroids as directed. Use albuterol PRN. * Gildardo Lacy MD - 09/08/2024 12:00 PM EDTAssociated Problem(s): Acute hypoxic respiratory failure (CMS/HCC) Recent hypoxia [...] improved and monitor. Acute hypoxic respiratory failure ([facility]) Recent hypoxia but today normal SpO2 on room air. Continue to monitor. documented in this encounterChristian HospitalHhdjneqtpz21-40-5342 Telephone encounter Note* Telephone Encounter - Farida Haynes RN - 09/06/2024 10:21 AM EDT VM left with MM message. Farida Haynes RN [facility]05-06-2025 Miscellaneous Notes* Telephone Encounter - Farida Haynes RN - 09/06/2024 10:21 AM EDT VM left with MM message. Farida Haynes RN * Telephone Encounter - Anthony Weaver PA-C - 09/06/2024 10:16 AM EDT This patient no longer follows with us. He should see his PCP for refills. Anthony Weaver PA-C documented in this encounterMadison Health05-06-2025 Telephone encounter Note * Telephone Encounter - Anthony Weaver PA-C - 09/06/2024 10:16 AM EDT This patient no longer follows with us. He should see his PCP for refills. Anthony Weaver PA-C [facility]05-05-2025 History of Present illness Narrative* Mireya Restrepo MD - 09/05/2024 10:00 AM EDT Images from the original note were not included. [address] [place] [address] Patient: Alejo Floyd Date of : 1960 [...] contact. They have also consented to using [employer] as a communications platform, understanding the privacy limitations, and telehealth and HIPAA waivers as established in the CMS expansion of telehealth benefits under the 1135 waiver authority and the Coronavirus Preparedness and Response Supplemental Appropri ations Act Dated July and as summarized in July 19, 2019 [facility] FAQ on the Coronavirus (COVID-19) public health emergency. History of Present Illness: The patient is a 64 y.o. male, an established patient, and is following up for post stroke care. The patient was last seen as a tele stroke consult, when she was admitted at [facility] in July 2024. Details of the hospitalization [...] to display PTSD: No data to display [place]: No data to display DION-10: No data [...] 09/21/2019 Added automatically from request for surgery [id number] Rapid heart beat Family History Problem Relation Age of Onset Aortic aneurysm Mother Breast cancer Mother Diabetes Mother Diabetes Brother Past Surgical History: Procedure Laterality Date Angiogram extremity left N/A 09/28/2019 Performed by Johan Najera MD at [facility] Aortography abdominal N/A 09/28/2019 Performed by Johan Najera MD at [facility] CHOLECYSTECTOMY COLONOSCOPY HERNIA REPAIR 2007 Xs Percutaneous angioplasty/stent femoral-popliteal left 09/28/2019 Performed by Johan Najera MD at [facility] SPLENECTOMY, TOTAL 01/19/2018 [...] Chronic obstructive pulmonary disease, unspecified COPD type ([facility]) History of throat cancer Tobacco dependence Alcoholism ([facility]) Clinical impression: Multifocal right Anterior Cerebral Artery [...] of throat cancer Follow-up: As needed Mireya Restrepo MD Vascular Neurologist [facility] Neurology ([facility]) Total time spent was 35 minutes: Preparing [...] you for your understanding. documented in this encounterChildren[facility]04-02-2025 History of Present illness Narrative* EDDI MCALLISTER [...] he brought himself here today. * Rashida Zarate, EXTRUSION PROCESS OPERATOR - 08/03/2024 10:00 AM EDT Images from [...] Chronic migraine Compression fracture of L1 vertebra ([facility]/HCC) COPD (chronic obstructive pulmonary disease) ([facility]/HCC) COVID-19 12/28/2020 HTN (hypertension) (CMS/HCC) Hx of transient ischemic attack (TIA) (last ~2015) Incisional hernia Major depressive disorder (CMS/HCC) Mass of epiglottis Mass of tongue 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[facility]/HCC) Pharyngeal lesion Right otitis media with effusion Seasonal allergic rhinitis due to pollen SVT (supraventricular tachycardia) ([facility]/HCC) Tongue cancer ([facility]/HCC) Past Surgical History: Procedure Laterality Date CHOLECYSTECTOMY [...] Follow heart healthy diet Stroke (CMS/HCC) Reviewed tele health stroke notes: multifocal infarct, Right BONY territory, recommend plavix 3 months (This would be up to and including 10/25/24) [place] [employer] [place] 4 weeks and keep appts with Neurology * Rashida Zarate NP - 08/03/2024 6:29 AM EDTAssociated Problem(s): Stroke (CMS/HCC) Reviewed tele health stroke notes: multifocal infarct, Right BONY territory, recommend plavix 3 months (This would be up to and including 10/25/24) Fu in [place] in 4 weeks and keep appts with [...] changes Current meds: metoprolol documented in this [facility]04-02-2025 Instructions* Patient Instructions* Rashida Zarate NP - 08/03/2024 10:00 AM EDT No med dose changes documented in this [facility]03-25-2025 Miscellaneous Notes* Telephone Encounter - Deisy Justin - 07/26/2024 12:23 PM EDT What is the reason for the call? [facility] called to schedule appt in STROKE unit. If appointment requested, what is the reason for the appointment? STROKE Is there a referral in the chart? No Were they seen in the hospital? Yes What hospital were they seen at? [facility] What is a good call back number? Call patient back: [phone] * Telephone Encounter - EMILIE Cheng - 07/26/2024 12:23 PM EDT Avis already sent a request for FU on this patient. She advised FU in [place]. * Telephone Encounter - Matilde Biggs CMA - 07/26/2024 12:23 PM EDT Scheduled tele-visit as it looks like [place] is fully booked. documented in this [facility]03-25-2025 Telephone encounter Note* Telephone Encounter - Deisy Justin - 07/26/2024 12:23 PM EDT What is the reason for the call? [facility] called to schedule appt in STROKE unit. If appointment requested, what is the reason for the appointment? STROKE Is there a referral in the chart? No Were they seen in the hospital? Yes What hospital were they seen at? [facility] What is a good call back number? Call patient back: [phone] [employer] [id number] Telephone encounter Note* Telephone Encounter - EMILIE Cheng - 07/26/2024 12:23 PM EDT Avis already sent a request for FU on this patient. She advised FU in [place]. [facility] [employer] [facility] Work Phone: 1(137) 224-794103-25-2025 Telephone encounter Note* Telephone Encounter - Matilde Biggs CMA - 07/26/2024 12:23 PM EDT Scheduled tele-visit as it looks like [place] is fully booked. 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 Doing fairly well. No evidence of recurrence. Stable right neck soft tissue changes from prior radiation treatment/retreatment. Continue conservative care. Plan to see patient back in 6 months. Signed by: Kathrine Carpenter MD cc: Gildardo Lacy MD ([facility]) [address] [place] [address] Dr. Bagley documented in this encounterMadison Health02-18-2025 NoteHNO ID: [id number] Author: Kathrine CARPENTER MD Service: ? 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 [facility]02-07-2025 History of Present illness Narrative* Hebert Miguel MD - 06/10/2024 1:30 PM EST SHOULDER/ELBOW INITIAL CONSULT SERVICE DATE: 06/09/2024 PCP: Gildardo Lacy MD REFERRING PROVIDER: EMILIE Spicer [address] [facility] [address] [facility] [address] Consult requested for an opinion regarding the evaluation and treatment of the above. My final impression and recommendations will be communicated back to the requesting physician by way of the shared medical record or letter via US mail. CHIEF COMPLAINT: Right shoulder pain SUBJECTIVE HISTORY OF PRESENT ILLNESS: 63 year old male, who presents for the above CC. Patient is a zqzit-fgjg-vvczsxah 63-year-old male with past medical history of [...] without relief. Has been taking Tylenol and xyxb-kml-gubifrq medications. Painis improved when he is lying [...] Hypertension, Benign Tachycardia Pvd (Peripheral Vascular Disease) ([facility]) Peripheral Neuropathy History of Transient Ischemic Attack ([place]) Copd (Chronic Obstructive Pulmonary Disease) ([facility]) Current Smoker Gerd (Gastroesophageal Reflux Disease) Prediabetes [...] N/A Hebert Miguel MD documented in this encounterMadison Health02-07-2025 NoteHNO ID: [id number] Author: HEBERT MIGUEL MD Service: ? Author Type: Physician Type: Progress Notes Filed: 06/10/2024 17:06 Note Text: SHOULDER/ELBOW INITIAL CONSULT SERVICE DATE: 06/09/2024 PCP: Gildardo Lacy MD REFERRING PROVIDER: EMILIE Spicer [address] [facility] [address] [place] [address] Consult requested for an opinion regarding the evaluation and treatment of the above. My final impression and recommendations will be communicated back to the requesting physician by way of the shared medical record or letter via US mail. CHIEF COMPLAINT: Right shoulder pain SUBJECTIVE HISTORY OF PRESENT ILLNESS: 63 year old male, who presents for the above CC. Patient is a uiprp-pldr-hsvkaigr 63-year-old male with past medical history of [...] without relief. Has been taking Tylenol and bzcl-gaa-tgzhblr medications. Pain is improved when he is [...] as instructed as neede (more content not included)...[facility] 06-10-2024 History of Present illness Narrative* Tayler Vick RT(R) - 06/10/2024 12:30 PM EST Radiology [...] PATIENT PRESENTS WITH AN IMPLANTABLE OR ATTACHED DRY CURE WORKER: No RADIOLOGY DEPARTMENT: General X-ray: Exam(s) Completed: Upper Extremity X- Ray(s): Shoulder, AP / TRUE AP / VELPEAU right PERIPHERAL IV DATA: Not applicable SIGNED BY: GALE Smith) June 10, 2024 2:42 PM documented in this encounterMadison Health02-07-2025 NoteHNO ID: [id number] Author: TAYLER VICK RT(R) Service: Radiology Author [...] PATIENT PRESENTS WITH AN IMPLANTABLE OR ATTACHED DRY CURE WORKER: No RADIOLOGY DEPARTMENT: General X-ray: Exam(s) Completed: Upper Extremity X-Ray(s): Shoulder, AP / TRUE AP / VELPEAU right PERIPHERAL IV DATA: Not applicable SIGNED BY: RT Luis(R) June 10, 2024 2:42 [facility]01-29-2025 History of Present illness Narrative* Gildardo Lacy [...] PM ESTAssociated Problem(s): Chemotherapy- induced peripheral neuropathy (CMS/HCC) Worsening symptoms and weakness [...] ADLs around the house. documented in this [facility]01-23-2025 Telephone encounter Note* Telephone Encounter - Gildardo Lacy MD - 05/26/2024 11:44 AM EST [facility] [id number] Miscellaneous Notes* Telephone Encounter - Gildardo Lacy MD - 05/26/2024 11:44 AM EST documented in this [facility]01-21-2025 History of Present illness Narrative* EMILIE Spicer [...] MR shoulder [place] [address] Magnetic Resonance Report Signed Patient: ALEJO FLOYD MR#: [id number] : 1960 Acct:[id number] Age/Sex: 63 / M ADM Date: 05/20/24 Loc: MRI Attending Dr: Cassie Hood PA Ordering Physician: Cassie Hood Date of Service: 05/20/24 Procedure(s): MR shoulder RT wo con Accession Number(s): [id number] cc: Cassie Hood; Gildardo Lacy M.D. [place] [id number] Patient Name: ALEJO FLOYD MRN: [id number] date: 1960 Sex: M Assigned Patient Location: MRI Current Patient Location: MRI Accession/Order Number: [id number] Exam Date: 05/20/2024 09:45 Report Date: 05/20/2024 [...] Signed By: 05/20/24 1501 DD/ 1459 TD/TT: Ticket Agent: Procedures Orders Placed This Encounter Procedures Ambulatory [...] rotator cuff, and an MRI performed at [facility] confirms retraction and tear. The case was discussed with Dr. Wade regarding surgical and nonsurgical treatment. He is in moderate to significant pain daily with his shoulder, and Dr. Wade is recommending evaluation by a shoulder specialist for potential reverse total shoulder.He is agreeable with referral and prefers [facility] as he has had cancer treatment through [...] A referral will be placed to the [facility] for further evaluation and treatment. His MRI at the [facility] has been pushed to the PACS system for [facility]. PROCEDURE The patient underwent right shoulder arthroscopy with repair of the rotator cuff. Questions answered in laymen terms at the bedside. The diagnosis, home exercise plan and any ongoing restrictions/ recommendations reviewed. If unable to be reached in office, I recommend evaluation at nearest Emergency Room if any symptoms worsened or new symptoms develop for requiring urgent evaluation. documented in this encounterChristian [id number] Telephone encounter Note* Telephone Encounter - Sumi Dior, ELISHAT - 05/12/2024 3:33 PM EST Left msg for Cheryle stating that the order is for [facility]. Our referral dept did precert for [facility] for some reason. I told Cheryle she will have to just call the insurance company and have them change the Facility. She will call back if any additional info is needed Christian [id number] Miscellaneous Notes* Telephone Encounter - JOSE Alvarado - 05/12/2024 3:33 PM EST Left msg for Cheryle stating that the order is for [facility]. Our referral dept did precert for [facility] for some reason. I told Cheryle she will have to just call the insurance company and have them change the Facility. She will call back if any additional info is needed * Telephone Encounter - Shruthi Lira - 05/12/2024 9:25 AM EST Cher[facility] at [facility] left returning call from [facility]. She stated that we need to change the order to TB instead of noms. Please call Cheryle back at [phone] ext [phone]. documented in this encounterChristian HospitalUxomrxyrdo62-78-5888 Telephone encounter Note* Telephone Encounter - Shruthi Lira - 05/12/2024 9:25 AM EST Cheryle at [facility] left returning call from [facility]. She stated that we need to change the order to [facility] instead of noms. Please call Cheryle back at [phone] ext [phone]. Christian HospitalHgtgbnqpie06-31-5120 History of Present illness Narrative* EMILIE Spicer [...] THERAPY DONE 2 TIMES A WEEK IN [place]. DENIES SWELLING. DENIES N/T. PT IS TAKING [...] for requiring urgent evaluation. documented in this encounterChristian HospitalNgussoaxno06-84-1196 Telephone encounter Note* Telephone Encounter - Gildardo Lacy MD - 04/21/2024 4:48 PM EST Christian [id number] Miscellaneous Notes* Telephone Encounter - Gildardo Lacy MD - 04/21/2024 4:48 PM EST documented in this encounterChristian HospitalFmpbrtdect65-32-4810 History of Present illness Narrative* Gildardo Lacy [...] or 2 views left documented in this encounterChristian HospitalNshocsfurf12-67-4192 Telephone encounter Note* Telephone Encounter - Nathaly Biggs APRN.CNP - 04/04/2024 11:48 AM EST The following approved medication requests have been transmitted electronically. Requested Prescriptions Signed Prescriptions Disp Refills megestrol (MEGACE) 400 mg/10 mL (40 mg/mL) suspension 480 mL 1 Sig: take 20 milliliters by mouth once daily Authorizing Provider: NATHALY BIGGS APRN.CNP [facility]12-02-2024 Miscellaneous Notes* Telephone Encounter - Nathaly Biggs APRN.CNP - 04/04/2024 11:48 AM EST The following approved medication requests have been transmitted electronically. Requested Prescriptions Signed Prescriptions Disp Refills megestrol (MEGACE) 400 mg/10 mL (40 mg/mL) suspension 480 mL 1 Sig: take 20 milliliters by mouth once daily Authorizing Provider: NATHALY BIGGS APRN.CNP documented in this encounterMadison Health11-20-2024 History of Present illness Narrative* EMILIE Spicer [...] A note was given to take to [facility] therapy to increase his range of motion [...] for requiring urgent evaluation. documented in this encounterChristian HospitalJhffadmcev71-03-8015 History of Present illness Narrative* Gildardo Lacy MD - 02/29/2024 10:15 AM EDTAssociated Problem(s): COPD (chronic obstructive pulmonary disease) ([facility]) Recent exacerbation but improved. Resume breo and use albuterol PRN. * Gildardo Lacy MD - 02/29/2024 9:45 AM EDT Images from the original note were not included. Subjective Patient ID: Alejo Floyd is a 63 y.o. male who presents for Follow-up (Er f/u). ER follow up from 02/17 for COPD exacerbation. Developed severe SOB and chest tightness. [place] like not able to take deep breath [...] This Visit COPD (chronic obstructive pulmonary disease) ([facility]) - Primary Recent exacerbation but improved. Resume breo and use albuterol PRN. Relevant Medications Fluticasone Furoate-Vilanterol (Breo Ellipta) 100-25 MCG/ACT aerosol powder albuterol (2.5 MG/3ML) 0.083% nebulizer solution Other Visit Diagnoses Need for immunization against influenza Relevant Orders Flu vaccine greater than or equal to 3 years old, preservative free IM (Completed) documented in this encounterChristian HospitalQsddlqlrts69-31-5814 History of Present illness Narrative* EMILIE Spicer [...] pt would like to do therapy at [facility]... therapy order given.. pt verbalized he [...] for requiring urgent evaluation. documented in this encounterChristian HospitalDnpjjpulgs57-81-1913 Instructions* Patient Instructions* EMILIE Spicer - 02/23/2024 [...] schedule as soon aspossible documented in this encounterChristian HospitalPvcnfpwaar09-14-8040 Telephone encounter Note* Telephone Encounter - Jesse George NP - 02/08/2024 6:36 PM EDT Post op pain rx. PDMP reviewed [facility] Work Phone: 1(817) 639-193910-07-2024 Miscellaneous Notes* Telephone Encounter - Jesse George NP - 02/08/2024 6:36 PM EDT Post op pain rx. PDMP reviewed documented in this encounterChristian HospitalBscjtxpync27-17-1473 History of Present illness Narrative* EMILIE Spicer [...] direct laryngoscopy with biopsy, Timmis MASS EXCISION 2007 LUNG MASS EXC (NOT BENIGN OTHER SURGICAL [...] proposed surgeryscheduled. (R) SHOULDER SCOPE 02/08 @[facility] SX INSTRUCTIONS GIVEN TODAY 02/01 @9:30AM [facility] DR. LACY CLEARANCE ; OBTAINED ULTRASLING GIVEN TODAY ARTHREX NOTIFIED PA APPROVED ([id number]) Patient presents today for fitting of right [...] Brace was dispensed to the patient and [facility] Patient Agreement was completed and signed. Warranty informationwas given and explained to the patient with good understanding. Proper care and fitting was also explained to the patient with good understanding. Follow up for 02/22 @11AM W/[place]. documented in this [facility]09-12-2024 Telephone encounter Note* Telephone Encounter - Ne Tomlin MA - 01/14/2024 9:15 AM EDT LEFT VM WITH DR. LACY'S OFFICE WE NEED CLEARANCE PRIOR TO SCHEDULING. CALLED PATIENT AND INFORMED HIM. HE IS UNDERSTANDING THAT ONCE WE OBTAIN CLEARANCE I WILL CALL TO SCHEDULE SX. Christian [id number] Miscellaneous Notes* Telephone Encounter - Ne Tomlin [...] regarding a scheduling surgery? documented in this [facility]09-09-2024 Telephone encounter Note* Telephone Encounter - Ana Powell - 01/11/2024 2:33 PM EDT Patient called regarding a scheduling surgery? Christian [id number] History of Present illness Narrative* Jr. Martin Chen DO - 12/28/2023 2:00 PM EDT Images from the original note were not included. HISTORY OF PRESENT ILLNESS: EST PT Alejo Floyd is an 63 y.o. @ male. EST PT RECHECK RT SHOULDER- HERE FOR MRI RT SHOULDER RESULTS [facility] 12/22/23 XRAY RT SHOULDER EPIC 11/02/23 MRI RT SHOULDER 12/22/23 [facility] S/P (R) SHOULDER SCOPE 06/27/22 - DR CHEN S/P RT SHOULDER NICOLE 11/28/22- DR CHEN CORTISONE INJ 11/02/23 S/P MDP 10/27/22 S/P PHYSICAL THERAPY [facility] PREVIOUS PHYSICAL THERAPY @ [facility] ; S/P SCOPE CONTINUES TO HAVE [...] intervention. Martin Chen D.O. 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 Bagley documented in this encounterMadison Health08-19-2024 History of Present illness Narrative* Esdras Cash [...] for carcinoma. 07/17/2020 Base of tongue biopsy ([facility]) Invasive squamous cell carcinoma HPV negative [...] FDG avid osseous lesion. 2021 CT abdomen/pelvis ([facility]) Distal small bowel obstruction with fluid-filled [...] FDG avid neoplastic process.. 07/13/2020 Chest x-ray ([facility]) No acute disease 07/09/2020 CT neck ([facility]) 3.6 x 3.4 x 2.6 cm [...] cell carcinoma. The patient was referred to [facility] (Dr. Olivarez), and subsequently [...] PCP. Esdras Cash MD documented in this encounterMadison Health08-13-2024 History of Present illness Narrative* Marilee Diamond [...] 15, 2023 TIME: 9:28 AM * Cynthia Meadows RT(Phil) - 12/15/2023 9:00 AM EDT RADIOLOGY SERVICE PROGRESS NOTE SERVICE DATE: 12/15/2023 SERVICE TIME: 9:33 AM PATIENT IDENTITY VERIFICATION COMPLETED USING TWO (2) STANDARD IDENTIFIERS: Name and Date of confirmed by patient verbally POST EXAM PIV STATUS: Discontinued PROCEDURE TYPE: NM INJECT: PET/CT BODY SCAN. 6.8 mCi F18 FDG. No other medications given.. ADMINISTRATION TIME: 0920 PATIENT DISCHARGED TO: Ambulatory patient, left [place] department area. A Diagnostic radioactive procedure has taken place, with no further precautions necessary other than routine body substance precautions. More information regarding radiation safety can be found usingthis link: [email or web address] 20Diagnostic%20Nuclear%20Medicine%20Procedures.pdf SIGNATURE: RT Jose Alfredo(Phil) PATIENT NAME: Alejo Floyd DATE: December 15, 2023 TIME: 9:33 AM PAGER/CONTACT #: documented in this encounterMadison Health07-16-2024 History of Present illness Narrative* Carmen Neely [...] Rfl: Assessment/Plan 1. PVD (peripheral vascular disease) ([facility]) Follow Up In Cardiology 2. Hyperlipidemia, unspecified hyperlipidemia type 3. TIA (transient ischemic attack) 4. BMI less than 19,adult 5. Current smoker Scribe Attestation By signing my name below, Sweetie Negron Scrjge attest that this documentation has been prepared [...] exam, discussion and plan. documented in this encounterPremier Health Work Phone: 1(253) 895-202707-16-2024 Instructions* Patient Instructions* Sweetie Hidalgo LPN - [...] gain to the patient. 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 No evidence of recurrence. Stable postradiation soft tissue effects. Continue conservative management including Aquaphor for the skin irritation. Otherwise plan for continued close follow-up and surveillance. Signed by: Kathrine Carpenter MD cc: Gildardo Lacy MD ([facility]) [address] [place] [address] Dr. Bagley documented in this encounterMadison Health04-15-2024 History of Present illness Narrative* Esdras Cash [...] for carcinoma. 07/17/2020 Base of tongue biopsy ([facility]) Invasive squamous cell carcinoma HPV negative [...] FDG avid osseous lesion. 2021 CT abdomen/pelvis ([facility]) Distal small bowel obstruction with fluid-filled [...] FDG avid neoplastic process.. 07/13/2020 Chest x-ray ([facility]) No acute disease 07/09/2020 CT neck ([facility]) 3.6 x 3.4 x 2.6 cm [...] cell carcinoma. The patient was referred to [facility] (Dr. Olivarez), and subsequently [...] PCP. Esdras Cash MD documented in this encounterMadison Health02-16-2024 Miscellaneous Notes* Telephone Encounter - Nathaly Biggs APRN.GROUP HOME MANAGER - 06/19/2023 2:00 PM EST The following approved medication requests have been transmitted electronically. Requested Prescriptions Signed Prescriptions Disp Refills megestrol (MEGACE) 400 mg/10 mL (40 mg/mL) suspension 480 mL 1 Sig: take 20 milliliters by mouth once daily Authorizing Provider: NATHALY BIGGS APRN.GROUP HOME MANAGER documented in this encounterMadison Health01-03-2024 History of Present illness Narrative* Carmen Neely [...] of Carmen Neely MD. documented in this encounterUnSelect Medical Specialty [facility] Work Phone: 1(898) 191-288901-03-2024 Instructions* Patient Instructions* Eve Lee LPN - [...] time of your visit. documented in this encounterPremier Health Work Phone: 1(489) 191-829010-13-2023 Miscellaneous Notes* Telephone Encounter - Judith Lorenz [...] If in agreement please refer to our professor of french. I will see him back as scheduled. documented in this encounterMadison Health10-11-2023 History of Present illness Narrative* Cynthia Meadows RT(R) - 02/11/2023 12:45 PM EDT RADIOLOGY [...] 1250 PATIENT DISCHARGED TO: Ambulatory patient, left [place] department area. A Diagnostic radioactive procedure has taken place, with no further precautions necessary other than routine body substance precautions. 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 Patient with recent weight loss, no obvious cause. Imaging with PET ordered. No clinical evidence of progression. Plan to see patient back after imaging. Signed by: Kathrine Carpenter MD cc: Gildardo Lacy MD ([facility]) [address] [place] [address] Dr. Bagley documented in this encounterMadison Health05-10-2023 History of Present illness Narrative* Farida Haynes [...] mg/dl, Calculated GFR >60, Date 08/30/2022 @ [facility] (scanned in) TREATMENT: No Hydration needed. IV SITE: Ambulatory: A peripheral IV was started in the Left hand with a Angio cath: 22 gauge. IV SITE APPEARANCE: Clean,Dry and Intact SIGNATURE: Farida Haynes RN PATIENT NAME: Alejo Floyd DATE: September 10, 2022 TIME: 8:18 AM * Cynthia Meadows, RT(R) - 09/10/2022 8:00 AM EDT Radiology [...] Intact, Site disposition Discontinued SIGNED BY: RT Jos eAlfredo(R) September 10, 2022 8:39 AM documented in this encounterMadison Health04-11-2023 Miscellaneous Notes* Telephone Encounter - Farida Haynes RN - 08/12/2022 1:45 PM EDT Please sign pended CRE for CT. Thank you, Farida documented in this encounterMadison Health01-17-2023 History of Present illness Narrative* Esdras Cash [...] for carcinoma. 07/17/2020 Base of tongue biopsy ([facility]) Invasive squamous cell carcinoma HPV negative [...] FDG avid osseous lesion. 2021 CT abdomen/pelvis ([facility]) Distal small bowel obstruction with fluid-filled [...] FDG avid neoplastic process.. 07/13/2020 Chest x-ray ([facility]) No acute disease 07/09/2020 CT neck ([facility]) 3.6 x 3.4 x 2.6 cm [...] cell carcinoma. The patient was referred to [facility] (Dr. Olivarez), and subsequently [...] abdominal pain. Hesubsequently was seen at the [facility] emergency room on 2021 and transferred to [facility] for suspected small bowel obstruction secondary to an abdominal wall hernia. His acute symptoms resolved withIVF and bowel rest. The patient is aware that his symptoms may recur, in which case surgery may be indicated. Continue management per PCP. 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 Overall doing well. Radiographically and clinically without evidence of recurrence. Plan for follow-up in 3 months. Signed by: Kathrine Carpenter MD cc: Gildardo Lacy MD (Dr) [address] [facility] [place] [address] Dr. 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 Course 2: DATES OF TREATMENT: 08/12/21-5/26/22 AREA TREATED: Right Neck DELIVERED DOSE: Right [...] oropharynx, 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, X3Yi9U5, with recurrence right neck status post right radical neck dissection and salvage right neck radiation completed September 26, 2021. Patient doing well. No evidence of clinical recurrence. Recommend follow-up in 3 to 3 months, recommend CT neck and chest at that time. Signed by: Kathrine Carpenter MD cc: Gildardo Lacy MD (DrC) [address] [place] [address] Dr. Bagley documented in this encounterMadison Health10-18-2022 Nurse Note* Alejo Griffiths - 02/18/2022 11:20 AM EDT Patient Identification confirmed: yes. Injection given and documented on JUL per provider order. Alejo Griffiths documented in this encounterMadison Health10-18-2022 History of Present illness Narrative* Esdras Cash [...] for carcinoma. 07/17/2020 Base of tongue biopsy ([facility]) Invasive squamous cell carcinoma HPV negative [...] FDG avid osseous lesion. 2021 CT abdomen/pelvis ([facility]) Distal small bowel obstruction with fluid-filled [...] FDG avid neoplastic process.. 07/13/2020 Chest x-ray ([facility]) No acute disease 07/09/2020 CT neck ([facility]) 3.6 x 3.4 x 2.6 cm [...] cell carcinoma. The patient was referred to [facility] (Dr. Olivarez), and subsequently [...] abdominal pain. Hesubsequently was seen at the [place] emergency room on 2021 and transferred to [facility] for suspected small bowel obstruction secondary to an abdominal wall hernia. His acute symptoms resolved withIVF and bowel rest. The patient is aware that his symptoms may recur, in which case surgery may be indicated. Continue management per PCP. Esdras Cash MD documented in this encounterMadison Health10-04-2022 NotePROCEDURE: XR SHOULDER RT 2V or >, [...] Electronically authenticated by: BELLA PEREIRA Date: 2022-02-04 12:58[facility]10-04-2022 NotePROCEDURE: XR SHOULDER RT 2V or >, [...] Unremarkable glenohumeral joint. 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 Bagley documented in this encounterMadison Health08-22-2022 History of Present illness Narrative* Cynthia Meadows, RT(R) - 12/23/2021 9:00 AM EDT RADIOLOGY [...] 901 PATIENT DISCHARGED TO: Ambulatory patient, left [place] department area. A Diagnostic radioactive procedure has taken place, with no further precautions necessary other than routine body substance precautions. More information regarding radiation safety can be found usingthis link: [email or web address] SIGNATURE: RT Jose Alfredo(R) PATIENT NAME: Alejo Floyd DATE: December 23, 2021 TIME: 9:50 AM PAGER/CONTACT #: documented in this encounterMadison Health07-26-2022 Miscellaneous Notes* Telephone Encounter - Anthony Weaver [...] prescribe magic mouthwash, Alejo would like to picking belt operator the prescription at our pharmacy tomorrow. Nathaly will you please address this encounter as Dr. Carpenter and Dr. Cash are both on vacation this week. Please advise. 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 Patient continues to well without clinical evidence of recurrence. He has some soft tissue changes related to radiation treatments but these are stable. Recommend further follow-up with PET scan in 4weeks. Signed by: Kathrine Carpenter MD cc: Gildardo Lacy MD ([facility]) [address] [place] [address] Dr. Bagley documented in this encounterMadison Health06-15-2022 NoteMR#: [id number] I [facility] Pt. Name: Alejo Floyd Admitted: 09/19/2021 Discharged: 09/20/2021 Date of : 1960 Physician: Zarina Morgan M.D. DISCHARGE SUMMARY ADMISSION DIAGNOSIS: Small bowel obstruction. DISCHARGE DIAGNOSIS: Small-bowel obstruction, resolving. No consults. No procedures. HISTORY OF PRESENT ILLNESS: 61-year-old male presenting to [facility] as direct admission. The patient presented reporting [...] P/Hood Sepulveda PA-C Date Trans: 10/16/2021 07:27 A/radha DN_[id number] cc: Gildardo Lacy M.D. [address] [facility] [address]Tgk[facility]06[facility] History of Present illness Narrative* Rylee Wilhelm, [...] Dosing Weight: 75.4 kg Estimated kilocalorie needs: 6017-8172 kilocalories determined by 25-30 kcal/kg Estimated protein needs: 75-90 grams determined by 1.0-1.2 g/kg Dosing weight Estimated fluid needs: ~1130-4006 milliliters based on 1 mL per kcal [...] Wilhelm MS, RDN, LD documented in this encounterMadison Health06-02-2022 Nurse Note* Myesha Garcia MA - 10/03/2021 2:03 PM EDT Patient would like something for his diarrhea. Myesha Garcia MA documented in this encounterMadison Health06-02-2022 History of Present illness Narrative* Esdras Cash [...] for carcinoma. 07/17/2020 Base of tongue biopsy ([facility]) Invasive squamous cell carcinoma HPV negative LABS: Hemoglobin (g/dL) Date Value 10/03/2021 10.6 06/28/2021 12.9 Hematocrit (%) Date Value 10/03/2021 32.9 06/28/2021 40.1 WBC (k/uL) Date Value 10/03/2021 4.96 06/28/2021 15.52 Platelet Count (k/uL) Date Value 10/03/2021 159 06/28/2021 398 RADIOLOGY/OTHER STUDIES: 2021 CT abdomen/pelvis ([facility]) Distal small bowel obstruction with fluid-filled [...] FDG avid neoplastic process.. 07/13/2020 Chest x-ray ([facility]) No acute disease 07/09/2020 CT neck ([facility]) 3.6 x 3.4 x 2.6 cm [...] cell carcinoma. The patient was referred to [facility] (Dr. Olivarez), and subsequently [...] abdominal pain. Hesubsequently was seen at the [place] emergency room on 2021 and transferred to [facility] for suspected small bowel obstruction secondary to an abdominal wall hernia. His acute symptoms resolved withIVF and bowel rest. The patient is aware that his symptoms may recur, in which case surgery may be indicated. Continue management per PCP. Esdras Cash MD CC: Dr. 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 Cash, Dr. Olivarez documented in this encounterMadison Health05-25-2022 History of Present illness Narrative* Rylee Wilhelm, RD - 09/25/2021 3:24 PM EDT Nutrition [...] denies any N/V/D/C. Pt was recentlyd/c'd from [facility] for a SBO, no surgical intervention was [...] Wilhelm MS, RDAleida, LD documented in this encounterMadison Health05-23-2022 Miscellaneous Notes* Telephone Encounter - Cynthia Cutler RN - 09/23/2021 3:07 PM EDT DISCHARGE CALL BACK Today's date: September 23, 2021 Notified of Pt discharge by: Call placed to [facility] for follow up. Patient discharged on 09/21/21 from [facility] to Home Primary Cancer Diagnosis: Oropharnxy Cancer Admitting Diagnosis: SBO Discharge Summary/SBAR reviewed: No - Requested from medical records Handoff Discussed with Transitional Hotel Administrative Assistant: No, unavailable Psychosocial Risk Factors: None If [...] pain. Cynthia Cutler RN documented in this encounterMadison Health05-23-2022 Miscellaneous Notes* Telephone Encounter - Cynthia Cutler RN - 09/23/2021 3:05 PM EDT FYI: Pt was dc'd home over the weekend. In today for follow up. Cris: [place] [facility] [place] Thanks! Cynthia Cutler RN * Telephone Encounter - Cynthia Cutler RN - 09/19/2021 9:21 AM EDT FYI: Pt transferred from [facility] ER to [facility]. Admitted w/ SBO. Spoke w/ his bedside nurse who reports the pt is scheduled for a small bowel follow through today to confirm placement of his NG tube. No additional treatment plans in place at this time. Clerical: Please cancel tomorrow's appointment. Thanks! Cynthia Cutler RN documented in this encounterMadison Health05-23-2022 History of Present illness Narrative* Esdras Cash [...] hold. He subsequently was seen at the [place] emergency room on 2021 and transferred to [facility] for suspected small bowel obstruction. Apparently his [...] for carcinoma. 07/17/2020 Base of tongue biopsy ([facility]) Invasive squamous cell carcinoma HPV negative [...] FDG avid neoplastic process.. 07/13/2020 Chest x-ray ([facility]) No acute disease 07/09/2020 CT neck ([facility]) 3.6 x 3.4 x 2.6 cm [...] cell carcinoma. The patient was referred to [facility] (Dr. Olivarez), and subsequently [...] MD CC: Dr. Bagley documented in this encounterMadison Health05-18-2022 Miscellaneous Notes* Telephone Encounter - Anthony Weaver [...] ER. Report phoned to Dr Arana @ [facility] ER. Last office note and med list faxed to [phone]. Cynthia Cutelr RN documented in this encounterMadison Health05-17-2022 Miscellaneous Notes* Telephone Encounter - Cynthia Cutler [...] recommendations. Katrin Arias RN documented in this encounterMadison Health05-16-2022 Miscellaneous Notes* Telephone Encounter - Cynthia Cutler RN - 09/16/2021 4:14 PM EDT Pt notified and verbalizes understanding. Cynthia Sessler, RN * Telephone Encounter - Cynthia Cutler RN - 09/16/2021 3:17 PM EDT Pt left before completing his Xray today. Will do Xray when here for radiation tomorrow. Anthony instructs to have pt go to ER if his abdominal pain worsens in the meantime. Call placed to pt. No answer. Message left requesting call back. Cynthia Cutler RN documented in this encounterMadison Health05-16-2022 History of Present illness Narrative* Anthony Weaver [...] for carcinoma. 07/17/2020 Base of tongue biopsy ([facility]) Invasive squamous cell carcinoma HPV negative [...] FDG avid neoplastic process.. 07/13/2020 Chest x-ray ([facility]) No acute disease 07/09/2020 CT neck ([facility]) 3.6 x 3.4 x 2.6 cm [...] cell carcinoma. The patient was referred to [facility] (Dr. Olivarez), and subsequently [...] PA-C CC: Dr. 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 Mike Brown MD documented in this encounterMadison Health05-16-2022 Miscellaneous Notes* Telephone Encounter - REINALDO Ruelas - 09/16/2021 9:16 AM EDT SOCIAL WORK FOLLOW UP NOTE: [facility] Date of service:09/16/21 Alejo Floyd is being seen for a follow up social work visit. Today's visit includes: patient TOPICS ADDRESSED: community resources PLAN: Assist with financial support applications, Continue follow up as needed and Referral to community resource Assigned KIKO listed in Care Team tab: Yes SW received an email from the [facility] stating that they are now accepting applications for their gas card program. KIKO called this Patient and asked if he would like to be enrolled into this program. Patient gave this SW verbal permission to submit an application. KIKO completed the online application and the Patient was approved to receive a $50 [employer] gas card which will be mailed to his home address. RIMA Ruelas documented in this encounterMadison Health05-09-2022 History of Present illness Narrative* Rylee Wilhelm [...] Wilhelm, MS, RDN, LD documented in this encounterMadison Health05-09-2022 Miscellaneous Notes* Telephone Encounter - Caitlyn Stockton RN - 09/09/2021 12:53 PM EDT Pt receiving dose 5 carboplatin today and reports that he forgot to mention that my feet are starting to have more tingling. Pt denies recent falls and reports that neuropathy is tolerable. Wanted you to be aware as he doesn't have f/u prior to his next dose. 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 Kathrine Carpenter MD documented in this encounterMadison Health05-09-2022 History of Present illness Narrative* Esdras Cash [...] for carcinoma. 07/17/2020 Base of tongue biopsy ([facility]) Invasive squamous cell carcinoma HPV negative [...] FDG avid neoplastic process.. 07/13/2020 Chest x-ray ([facility]) No acute disease 07/09/2020 CT neck ([facility]) 3.6 x 3.4 x 2.6 cm [...] cell carcinoma. The patient was referred to [facility] (Dr. Olivarez), and subsequently [...] MD CC: Dr. Bagley documented in this encounterMadison Health05-02-2022 History of Present illness Narrative* Abby Ba RN - 09/02/2021 11:46 AM EDT . documented in this encounterMadison Health05-02-2022 History of Present illness Narrative* Anthony Weaver [...] for carcinoma. 07/17/2020 Base of tongue biopsy ([facility]) Invasive squamous cell carcinoma HPV negative [...] FDG avid neoplastic process.. 07/13/2020 Chest x-ray ([facility]) No acute disease 07/09/2020 CT neck ([facility]) 3.6 x 3.4 x 2.6 cm [...] cell carcinoma. The patient was referred to [facility] (Dr. Olivarez), and subsequently [...] PA-C CC: Dr. 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 Kathrine Carpenter MD documented in this encounterMadison Health04-25-2022 History of Present illness Narrative* Rylee Wilhelm, SCOTT - 08/26/2021 8:42 AM EDT Nutrition Therapy [...] up: will continue to follow Referred/Supervised by: Ron/Shialesh FREEMAN Billing Type: Re-assess/15 min 1 unit Billed Time: 15 minutes Signed by: Rylee Wihlelm MS, RDN, LD documented in this encounterMadison Health04-18-2022 History of Present illness Narrative* Abby Ba RN - 08/19/2021 2:45 PM EDT . 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 Kathrine Carpenter MD documented in this encounterMadison Health04-18-2022 History of Present illness Narrative* Rylee Wilhelm, RD - 08/19/2021 1:37 PM EDT Nutrition [...] 15 minutes Signed by: Rylee Wilhelm MS, HERMELINDA, NICHOLAS documented in this encounterMadison Health04-18-2022 History of Present illness Narrative* Nathaly Biggs APRN.GROUP HOME MANAGER - 08/19/2021 1:30 PM EDT PATIENT NAME: [...] for carcinoma. 07/17/2020 Base of tongue biopsy ([facility]) Invasive squamous cell carcinoma HPV negative [...] FDG avid neoplastic process.. 07/13/2020 Chest x-ray ([facility]) No acute disease 07/09/2020 CT neck ([facility]) 3.6 x 3.4 x 2.6 cm [...] cell carcinoma. The patient was referred to [facility] (Dr. Olivarez), and subsequently [...] APRN.SILVINO CC: Dr. Bagley documented in this encounterMadison Health04-14-2022 Miscellaneous Notes* Telephone Encounter - Cynthia Cutler [...] protocol. Cynthia Cutler RN documented in this encounterMadison Health04-11-2022 Miscellaneous Notes* Telephone Encounter - Cynthia Cutler RN - 08/12/2021 11:49 AM EDT Pt's chemo ed completed via telephone prior to today's appointment. Pt given the [facility]ocare handout,when to call list, and contact information today. No additional questions noted. 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 Kathrine Carpenter MD documented in this encounterMadison Health04-11-2022 History of Present illness Narrative* Esdras Cash [...] for carcinoma. 07/17/2020 Base of tongue biopsy ([facility]) Invasive squamous cell carcinoma HPV negative [...] FDG avid neoplastic process.. 07/13/2020 Chest x-ray ([facility]) No acute disease 07/09/2020 CT neck ([facility]) 3.6 x 3.4 x 2.6 cm [...] cell carcinoma. The patient was referred to [facility] (Dr. Olivarez), and subsequently [...] MD CC: Dr. Bagley documented in this encounterMadison Health04-08-2022 History of Present illness Narrative* Vale Chung [...] Planned: 2 Planned Treatment Interventions: Therapeutic exercise (53637);Neuromuscular re- education (31187);Manual therapy (39388);Therapeutic activities (92199);Self- jail management (03335);Patient/Family/Caregiver Education PLAN FOR NEXT VISIT: Manual and [...] Vale Chung PT, DPT documented in this encounterMadison Health04-04-2022 History of Present illness Narrative* Cynthia Cutler [...] 08/12. 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 Pt verbalizes understanding. Denies any questions or concerns at this time. Time Spent: 17 minutes REFERRAL (RECOMMENDATION): Already established w/ [employer] [facility]. 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 Patient has seen my colleague Dr. Green, postoperative reirradiation recommended due to high risknature of recurrence. Patient offered clinical protocol (ECOG 3191 ) however patient not able to stay in [place] for the duration of treatment seeking to [...] Kathrine Carpenter MD cc: Gildardo Lacy MD ([facility]) [address] [place] [address] Dr. Bagley documented in this encounterMadison Health04-01-2022 Miscellaneous Notes* Telephone Encounter - Nathaly Biggs APRN.CNP - 08/02/2021 1:35 PM EDT The following [...] as needed. Authorizing Provider: NATHALY BIGGS APRN.CNP * Telephone Encounter - Cynthia Cutler RN - 08/02/2021 1:29 PM EDT Scripts for antiemetics pended. Please review and approve. Thanks! Cynthia Cutler RN documented in this encounterMadison Health03-31-2022 History of Present illness Narrative* Rylee Wilhelm, RD - 08/01/2021 1:57 PM EDT Nutrition [...] Wilhelm MS, RD, LD documented in this encounterMadison Health03-31-2022 History of Present illness Narrative* Esdras Cash [...] cell carcinoma. The patient was referred to [facility] (Dr. Olivarez), and subsequently [...] for carcinoma. 07/17/2020 Base of tongue biopsy ([facility]) Invasive squamous cell carcinoma HPV negative [...] FDG avid neoplastic process.. 07/13/2020 Chest x-ray ([facility]) No acute disease 07/09/2020 CT neck ([facility]) 3.6 x 3.4 x 2.6 cm [...] cell carcinoma. The patient was referred to [facility] (Dr. Olivarez), and subsequently [...] would be eligible for current protocol (ECOG RU9572) randomizing patients to receive reirradiation plus a kiana based chemo versus reirradiation plus pembrolizumab versus [...] MD CC: Dr. Bagley documented in this encounterMadison Health03-31-2022 History of Present illness Narrative* G Сергей Carpenter MD - 08/01/2021 12:00 AM EDT ALEJO FLOYD [id number] 08/01/2021 [facility] Radiation Oncology Department SIMULATION NOTE DATE OF SIMULATION: 08/01/2021 THERAPIST: Millie Zaman MACHINE: Fyusion DIAGNOSIS: Malignant neoplasm of base of [id number] AREA: head/neck CONTRAST: IV <Select> 100ML OF [...] / NIK 24:32 PM documented in this encounterMadison Health03-31-2022 History of Present illness Narrative* Kathrine Carpenter MD - 08/01/2021 12:00 AM EDT ALEJO FLOYD [id number] 08/01/2021 [facility] Department of Radiation Oncology Treatment Planning [...] Carpenter M.D. 2:17 PM documented in this encounterMadison Health03-29-2022 Miscellaneous Notes* Telephone Encounter - Azar Martino LPN - 07/30/2021 11:00 AM EDT Patient requesting a refill on Megace. States he does have 1 bottle left at home. Azar Martino LPN documented in this encounterMadison Health02-17-2022 NoteHNO ID: [id number] Author: Cassie Durham RT(R) Service: Radiology Author Type: Technologist Type: [...] Intact, Site disposition Discontinued SIGNED BY: Cassie Durham RT(R) June 20, 2021 3:33 [place] [id number] NoteMR#: [id number] I [facility] Pt. Name: Alejo Floyd Admitted: 05/27/2021 [...] is a 60-year-old male, who presented to [facility] ER as a transfer from [facility] for evaluation of small-bowel obstruction. He presents at the [facility] for evaluation of 2-3 days of constant abdominal pain, which radiated to the back. Reported nausea and vomiting as well as decreased appetite/oral intake with loose stools in the morning, and he has not been passing any stool or gas since the this morning, the morning of 05/27/2021. At [facility], he had a CT of his abdomen [...] was the accepting physician, who transferred to [facility]. The patient arrived with the NG tube, nasogastric tube in place. Denied fever, chills, chest pain, shortness of breath, blood in stools, urinary symptoms. His abdomen is soft and mildly distended and moderately tender to palpation without guarding or rebound tenderness. His abdomen did note to have many healed surgical scars. He did have an elevated creatinine on admission what was reported from [facility]. The patient was admitted for his NG [...] Dodd CNP Date Trans: 06/04/2021 07:42 A/radha DN_[id number] cc: Gildardo Lacy M.D. [address] [address] History of Present illness Narrative* Cynthia Meadows RT(R) - 04/05/2021 9:00 AM EST RADIOLOGY SERVICE PROGRESS NOTE SERVICE DATE: 04/05/2021 SERVICE TIME: 9:12 AM PATIENT IDENTITY VERIFICATION COMPLETED USING TWO (2) STANDARD IDENTIFIERS: Name and Date of confirmed by patient verbally POST EXAM PIV STATUS: Discontinued PROCEDURE TYPE: NM INJECT: PET/CT BODY SCAN. 10.3 mCi F18 FDG. No other medications given.. ADMINISTRATION TIME: 906 PATIENT DISCHARGED TO: Ambulatory patient, left [place] department area. A Diagnostic radioactive procedure has taken place, with no further precautions necessary other than routine body substance precautions. More information regarding radiation safety can be found usingthis link: [email or web address] SIGNATURE: RT Jose Alfredo(R) PATIENT NAME: Alejo Floyd DATE: April 05, 2021 TIME: 9:12 AM PAGER/CONTACT #: [facility] Nurse Note* Marina Del Rio RN - [...] DATE: April 05, 2021 TIME: 9:08 AM [facility] Work Phone: 1(576) 570-736512-03-2021 Nurse Note* Marina Del Rio RN - [...] 2021 TIME: 9:08 AM documented in [facility]07-30-2015 Chief complaint Narrative - Reported* ALEJO FLOYD is being seen for a consultation for SRE. * 61-year-old -[place] who is in my office for the first time to establish relationship with cardiology. The patient has history of active tobacco abuse and PAD involving mostly the left femoral artery where he had stenting done several years ago in [place]. He has no previous cardiac catheterizations or [...] He would likely benefit from statin therapy [facility] Work Phone: [phone]) 157-311607-29-2015 Chief complaint Narrative - Reported* ALEJO FLOYD is being seen for a consultation for SRE. * 61-year-old -[place] who is in my office for the first time to establish relationship with cardiology. The patient has history of active tobacco abuse and PAD involving mostly the left femoral artery where he had stenting done several years ago in [place]. He has no previous cardiac catheterizations or [...] He would likely benefit from statin therapy [facility] [address] DO Work Phone: [phone]) 207-110307-27-2015 Chief complaint Narrative - Reported* ALEJO FLOYD is being seen for a consultation for SRE. * 61-year-old -[place] who is in my office for the first time to establish relationship with cardiology. The patient has history of active tobacco abuse and PAD involving mostly the left femoral artery where he had stenting done several years ago in [place]. He has no previous cardiac catheterizations or [...] He would likely benefit [facility] statin therapy [facility] Work Phone: Evaluation note* Diagnosis Oropharnyx cancer (HCC)- Primary 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 Malaise and fatigue Other malaise and fatigue [facility] Diagnosis Oropharnyx cancer (HCC)- Primary [facility] Diagnosis Oropharnyx cancer (HCC)- Primary [facility]* Diagnosis Physical deconditioning- Primary Debility, unspecified Current smoker Tobacco use disorder [facility] Diagnosis Cancer of base of [...] base of tongue [facility] [...] base of tongue [facility] in [facility]* Diagnosis Oropharnyx cancer (HCC)- Primary [facility]* 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 [facility]* [...] cancer (HCC) [facility] 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 Cancer related pain Neoplasm related pain (acute) (chronic) Need for influenza vaccination Need for prophylactic vaccination and inoculation against influenza [facility] [...] COPD type (HCC) documented in this encounter [facility] note* Diagnosis PVD (peripheral vascular disease) (CMS/HCC)- Primary Unspecified peripheral vascular disease Abnormal EKG Nonspecific abnormal electrocardiogram (ECG) (EKG) TIA (transient ischemic attack) Unspecified transient cerebral ischemia Current smoker Hyperlipidemia, unspecified hyperlipidemia type Pulmonary emphysema, unspecified emphysema type (CMS/HCC) documented in this encounter [facility] Work Phone: Evaluation note* 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 Malaise and fatigue Other malaise and fatigue Chronic obstructive pulmonary disease, unspecified COPD type (HCC) Severe protein-calorie malnutrition (HCC) Other severe protein-calorie malnutrition Cancer related pain Neoplasm related pain (acute) (chronic) documented [facility]* Diagnosis 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, face, and neck History of radiation therapy Personal history of irradiation, presenting hazards to health [facility] noteNo assessment information availableMercy Health St. [facility] Work Phone: Evaluation note* Diagnosis Oropharnyx [...] hazards to health [facility]* [...] severe protein-calorie malnutrition documented in this encounter [facility] note* Diagnosis Oropharnyx cancer (HCC)- Primary [...] malaise and fatigue documented in this encounter [facility] note* Diagnosis Oropharnyx cancer (HCC)- Primary [...] 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 [facility] note* Diagnosis Oropharnyx cancer (HCC)- Primary [...] 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 [facility] note* Diagnosis Oropharnyx cancer (HCC)- Primary [...] 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 [facility] note* Diagnosis Malignant neoplasm of head, face [...] Dysphagia, unspecified type documented in this encounter [facility] note* Diagnosis Preop examination- Primary Unspecified pre-operative examination [facility] [...] inoculation against influenza documented in this encounter [facility]* Diagnosis Essential hypertension (CMS/HCC)- Primary [...] thoracolumbar intervertebral disc documented in this encounter [facility]Evaluation note* Diagnosis Essential hypertension (CMS/HCC)- Primary [...] right shoulder- Primary documented in this encounter [facility] HealthcareEvaluation note* Diagnosis Essential hypertension (CMS/HCC)- Primary [...] thoracolumbar intervertebral disc documented in this encounter [facility]Evaluation note* Diagnosis Essential hypertension (CMS/HCC)- Primary [...] tissues of limb documented in this encounter [facility] HealthcareEvaluation note* Diagnosis PVD (peripheral vascular disease) ([facility]-HCC) Unspecified peripheral vascular disease Hyperlipidemia, unspecified hyperlipidemia type TIA (transient ischemic attack) Unspecified transient cerebral ischemia BMI less than 19,adult Current smoker documented in this encounter [facility] Work Phone: Evaluation note* Diagnosis Internal derangement of right shoulder- Primary documented in this encounter [facility] HealthcareEvaluation note* Diagnosis DDD (degenerative disc disease), thoracic Degeneration of thoracic or thoracolumbar intervertebral disc documented in this encounter [facility] HealthcareEvaluation note* Diagnosis Essential hypertension (CMS/HCC)- Primary [...] thoracolumbar intervertebral disc documented in this encounter [facility]Evaluation note* Diagnosis Essential hypertension (CMS/HCC)- Primary [...] of shoulder, right documented in this encounter [facility]Evaluation note* Diagnosis Essential hypertension (CMS/HCC)- Primary [...] thoracolumbar intervertebral disc documented in this encounter [facility]Evaluation note* Diagnosis Essential hypertension (CMS/HCC)- Primary [...] COPD type (CMS/HCC) documented in this encounter [facility] HealthcareEvaluation note* Diagnosis Oropharnyx cancer (HCC)- Primary [...] Primary Generalized pain [facility]* Diagnosis [...] Tobacco use disorder documented [facility]* Diagnosis Oropharnyx cancer (HCC)- Primary Pharyngeal [...] Pain Generalized pain [facility]* Diagnosis Essential hypertension (CMS/HCC)- Primary [...] thoracolumbar intervertebral disc [facility] Diagnosis Oropharnyx cancer (HCC)- Primary [...] face, and neck [facility]* Diagnosis Essential hypertension (CMS/HCC)- Primary [...] Unspecified essential hypertension [facility] Diagnosis Essential hypertension (CMS/HCC)- Primary Unspecified [...] or maintaining sleep documented in this encounter [facility] HealthcareEvaluation note* Diagnosis Essential hypertension (CMS/HCC)- Primary [...] and unspecified hyperlipidemia documented in this encounter [facility] HealthcareEvaluation note* Diagnosis Chronic obstructive pulmonary disease, unspecified COPD type (Multi)- Primary PVD (peripheral vascular disease) (CMS-HCC) Unspecified peripheral vascular disease Current smoker Dyspnea, unspecified type Hyperlipidemia, unspecified hyperlipidemia type TIA (transient ischemic attack) Unspecified transient cerebral ischemia documented in this encounter [facility] Work Phone: Evaluation note* Diagnosis Essential hypertension [...] thoracolumbar intervertebral disc documented in this encounter [facility] HealthcareEvaluation note* Diagnosis Essential hypertension- Primary Unspecified [...] thoracolumbar intervertebral disc documented in this encounter [facility] HealthcareEvaluation note* Diagnosis Essential hypertension- Primary Unspecified [...] thoracolumbar intervertebral disc documented in this encounter [facility] HealthcareEvaluation note* Diagnosis Essential hypertension- Primary Unspecified [...] respiratory failure (HCC) [facility] Diagnosis Oropharnyx cancer (HCC)- Primary [...] of thyroid- Primary [facility]* Diagnosis Essential hypertension- Primary Unspecified [...] type (HCC)- Primary documented in this encounter [facility] HealthcareEvaluation note* Diagnosis Sequelae, post-stroke- Primary PAD (peripheral artery disease) Unspecified peripheral vascular disease Hypertension, unspecified type Hyperlipidemia, unspecified hyperlipidemia type Left ventricular hypertrophy Cardiomegaly ICAO (internal carotid artery occlusion), left Chronic obstructive pulmonary disease, unspecified COPD type ([facility]-HCC) History of throat cancer Tobacco dependence Tobacco use disorder Alcoholism ([facility]) Other and unspecified alcohol dependence, unspecified drinking behavior [facility]* Diagnosis Essential hypertension- Primary Unspecified [...] encounter [facility] HealthcareInstructionsNot on filedocumented in this encounterProC[facility] SystemInstructionsNot on filedocumented in this encounterProMain Campus Medical CenterReason for referral (narrative)* Diagnostic Procedure Only (Routine) - AuthorizedSpecialtyDiagnoses / ProceduresReferred By ContactReferred To ContactXR IMAGING Diagnoses Lower abdominal pain Procedures XR ABDOMEN 2V ROUTINE SUPINE W UPRIGHT/DECUB/CTL RADIOLOGIC EXAM ABDOMEN 2 VIEWS Anthony Weaver PA-C [address] [place] [address] [place] [address] Xr Imaging Referral IDStatusReasonStart DateExpiration DateVisits RequestedVisits [id number] Auto-Generated Referral / [facility] for referral (narrative)* Diagnostic Procedure Only (Routine) - Pending ReviewSpecialtyDiagnoses / ProceduresReferred By Contact Referred To ContactMOLECULAR & FUNCTIONAL IMAGING Diagnoses Oropharnyx cancer (HCC) Procedures NM PET/CT SKULL-THIGH SUBSEQUENT PET IMAGING CT ATTENUATION SKULL BASE MID-THIGH Kathrine Carpenter MD [address] [place] [address] [place] [address] Molecular & Functional Imaging [address] [place] [address] Referral IDStatusReasonStart DateExpiration DateVisits RequestedVisits [id number] Review Auto-Generated Referral / [facility] for referral (narrative)* Consultation (Routine) - AuthorizedSpecialtyDiagnoses / ProceduresReferred By ContactReferred To ContactCardiology Diagnoses PVD (peripheral vascular disease) (CMS/HCC) Procedures Follow Up In Cardiology Carmen Neely MD [address] [place] [address] 2, [address] [address] Camren Neely MD [address] [place] [address] [address], [address] [address] Referral IDStatusReasonStharrisonburg DateExpiration DateVisits RequestedVisits [id number]/3/20241/ [facility] Work Phone: [facility] (n[facility]ative)* Diagnostic Procedure Only (Routine) - Pending ReviewSpecialtyDiagnoses / ProceduresReferred By ContactReferred To ContactMOLECULAR & FUNCTIONAL IMAGING Diagnoses Cancer of base of tongue (HCC) Malaise and fatigue Procedures NM PET/CT SKULL-THIGH SUBSEQUENT PET IMAGING CT ATTENUATION SKULL BASE MID-THIGH Esdras Cash MD [address] [place] [address] [place] [address] Molecular & Functional Imaging [address] [place] [address] Referral IDStatusReasonStart DateExpiration DateVisits RequestedVisits [id number] Review Auto-Generated Referral T [facility] for referral (narrative)* Diagnostic Procedure Only (Routine) - ClosedSpecialtyDiagnoses / ProceduresReferred By ContactReferred To ContactMOLECULAR & FUNCTIONAL IMAGING Diagnoses Cancer of base of tongue (HCC) Malaise and fatigue Procedures NM PET/CT SKULL-THIGH SUBSEQUENT PET IMAGING CT ATTENUATION SKULL BASE MID-THIGH Esdras Cash MD [address] [place] [address] [place] [address] Molecular & Functional Imaging [address] [place] [address] Referral IDStatusReasonStart DateExpiration DateVisits RequestedVisits [id number] Auto-Generated Referral / T [facility] for referral (narrative)* Diagnostic Procedure Only (Routine) - ClosedSpecialtyDiagnoses / ProceduresReferred By ContactReferred To ContactMOLECULAR & FUNCTIONAL IMAGING Diagnoses Cancer of base of tongue (HCC) Procedures NM PET/CT SKULL-THIGH SUBSEQUENT PET IMAGING CT ATTENUATION SKULL BASE MID-THIGH Esdras Cash MD [address] [place] [address] [place] [address] Molecular & Functional Imaging [address] [place] [address] Referral IDStatusReasonStart DateExpiration DateVisits RequestedVisits [id number] Auto-Generated Referral OON/Self Pay Override / [facility] for referral (narrative)* Diagnostic Procedure Only (Routine) - ClosedSpecialtyDiagnoses / ProceduresReferred By ContactReferred To ContactMOLECULAR & FUNCTIONAL IMAGING Diagnoses Oropharnyx cancer (HCC) Procedures NM PET/CT SKULL-THIGH SUBSEQUENT PET IMAGING CT ATTENUATION SKULL BASE MID-THIGH Kathrine Carpenter MD [address] [place] [address] Molecular & Functional Imaging [address] [place] [address] Referral IDStatusReasonStart DateExpiration DateVisits RequestedVisits [id number] Auto-Generated Referral / [facility] for referral (narrative)* Diagnostic Procedure Only (Routine) - ClosedSpecialtyDiagnoses / ProceduresReferred By ContactReferred To ContactMOLECULAR & FUNCTIONAL IMAGING Diagnoses Malignant neoplasm of head, face and neck (HCC) Procedures NM PET/CT SKULL-THIGH SUBSEQUENT TUMOR IMAGING PET W/CONC CT SKULL-THIGH Kathrine Carpenter MD [address] [place] [address] [address] [place] [id number] Molecular & Functional Imaging [address] [place] [address] Referral IDStatusReasonStart DateExpiration DateVisits RequestedVisits [id number]/3/20211/ [facility] for referral (narrative)* Diagnostic Procedure Only (Routine) - AuthorizedSpecialtyDiagnoses / ProceduresReferred By Contact Referred To ContactXR IMAGING Diagnoses Pain Procedures XR SHOULDER GENERAL 3V OR MORE AP/TRUE AP/OTHER RIGHT RADEX SHOULDER COMPLETE MINIMUM 2 VIEWS Hebert Miguel MD [address] [place] [address] Xr Imaging [place] [address] Referral IDStatusReasonStart DateExpiration DateVisits RequestedVisits [id number] Auto-Generated Referral / [facility] for referral (narrative)No reason for referral information availableFirelands Regional Med Center Work Phone: [facility] Narrative* Diagnostic Procedure Only (Routine) - ClosedSpecialtyDiagnoses / ProceduresReferred By ContactReferred To ContactRadiation Oncology / RADIATION ONCOLOGY Diagnoses Malignant neoplasm of base of tongue SIM/KAI/Neck - IV Contrast Procedures SIMULATION KELSEY IMRT 30 fractions Kathrine Carpenter MD [address] [place] [address] [place] [address] Kathrine Carpenter MD [address] [place] [address] [place] [address] Referral IDStatusReasonStart DateExpiration DateVisits RequestedVisits [id number]/31/20226/ [facility] for visit Narrative* Consultation (Routine) - Closed SpecialtyDiagnoses / ProceduresReferred By ContactReferred To ContactPulmonary Disease / Pulmonology Diagnoses Chronic obstructive pulmonary disease, unspecified COPD type (HCC) Chronic hypoxic respiratory failure (HCC) Procedures [place] OFFICE/OUTPATIENT NEW HIGH MDM 60 MINUTES Gildardo Lacy MD [address] [place] [address] Phone: tel: fax: Kaela Negrete, DO [address] [place] [address] Referral IDStatusReasonKaty DateExpiration DateVisits RequestedVisits [id number] Specialty Services Required / [facility] Healthcare Summary Purpose Family History No Family [...] mellitus Unknown Not SpecifiedMalignant neoplasm of breastUnknown Relationship Condition Age at Onset Recorded Date/T valentina brother Diabetes mellitus Unknown motherMalignant neoplasm of breastUnknown Advance Directives No Advanced Directives Records FoundDocuments on File TypeDate RecordedPatient RepresentativeExplanationAdvance Directive(s)06/17/2021 10:43 AMTypeDate RecordedPatient RepresentativeExplanationAdvance Directive(s) 06/17/2021 10:43 AM Advance Directive Response Recorded Date/ Time Advance Directives No August 07 12:13pm Advance Directive Response Recorded Date/ Time Advance Directives No August 07 11:13am Reason for Referral SpecialtyDiagnoses / ProceduresReferred By ContactReferred To ContactREHAB AND SPORTS THERAPY INS Diagnoses Current smoker Physical deconditioning Procedures PT REHAB FOLLOW UP ORDER THERAPEUTIC EXERCISES RE, EA 15 [address]. [address] [facility] [place] [address] [place] [address] [facility] [place] [address] [place] [address] Referral IDStatusReasonStart DateExpiration DateVisits RequestedVisits [id number] Review PCP Requested Referral Auto-Generated Referral /[id number] / ProceduresReferred By ContactReferred To ContactCT IMAGING Diagnoses Oropharnyx cancer (HCC) Procedures CT CHEST W IVCON DIAGNOSTIC COMPUTED TOMOGRAPHY THORAX W/CONTRAST Kathrine Carpenter MD [address] [place] [address] Ct Imaging Referral IDStatusReasonStart DateExpiration DateVisits RequestedVisits [id number] Review Auto-Generated Referral /[id number] / ProceduresReferred By ContactReferred To ContactCT IMAGING Diagnoses Oropharnyx cancer (HCC) Procedures CT NECK SOFT TISSUE W IVCON CT SOFT TISSUE NECK W/CONTRAST MATERIAL Kathrine Carpenter MD [address] [place] [address] [place] [address] Ct Imaging Referral IDStatusReasonStart DateExpiration DateVisits RequestedVisits [id number] Review Auto-Generated Referral [id number] / ProceduresReferred By ContactReferred To ContactCT IMAGING Diagnoses Oropharnyx cancer (HCC) Procedures CT CHEST W IVCON DIAGNOSTIC COMPUTED TOMOGRAPHY THORAX W/CONTRAST Kathrine Carpenter MD [address] [place] [address] [place] [address] Ct Imaging [place] [address] Referral IDStatusReasonStart DateExpiration DateVisits RequestedVisits [id number] Auto-Generated Referral /[id number] / ProceduresReferred By ContactReferred To ContactCT IMAGING Diagnoses Oropharnyx cancer (HCC) Procedures CT NECK SOFT TISSUE WO IVCON CT SOFT TISSUE NECK W/O CONTRAST MATERIAL Kathrine Carpenter MD [address] [place] [address] [place] [address] Ct Imaging [facility] Referral IDStatusReasonStart DateExpiration DateVisits RequestedVisits [id number] Auto-Generated Referral /[id number] IDStatusReasonStart DateExpiration DateVisits RequestedVisits [id number] Auto-Generated Referral [id number] / ProceduresReferred By ContactReferred To ContactCT IMAGING Diagnoses Oropharnyx cancer (HCC) Procedures CT NECK SOFT TISSUE W IVCON CT SOFT TISSUE NECK W/CONTRAST MATERIAL Kathrine Carpenter MD [address] [place] [address] [address] [place] [id number] [facility] [place] [id number] Referral IDStatusReasonStart DateExpiration DateVisits RequestedVisits [id number] Auto-Generated Referral [id number] / ProceduresReferred By ContactReferred To Contact Diagnoses PVD (peripheral vascular disease) ([facility]) Procedures ECG 12 Lead Carmen Neely MD [address] [facility], [address] [address] Referral IDStatusReasonStart DateExpiration DateVisits RequestedVisits [id number]/[id number] / Procedures Referred By ContactReferred To ContactCardiology Diagnoses PVD (peripheral vascular disease) ([facility]) Procedures Follow Up In Cardiology Carmen Neely MD [facility] [facility], [place] [address] [place] [id number] Carmen Neely MD [address] [facility], [place] [address] [place] [id number] Referral IDStatusReasonStart DateExpiration DateVisits RequestedVisits [id number]/[id number]/[id number] Medications Administered Section Medication OrderMAR ActionAction DateDoseRateSite CARBOplatin 204.4 mg in NaCl 0.9% 250 mL (PARAPLATIN) 204.4 mg (Target AUC = 2), INTRAVENOUS, Administer over 30 Minutes, ONCE, 1 dose, On Thu08/12/21 [id number], Approx Total Volume EXP: 1330 08/13/21 Hazardous Chemotherapy Drug: Use appropriate PPE. Antineoplastic Irritant. New Bag/Syringe/Tkyuqv6908/12/2021 1:58 PM GWU005.4 mg dexAMETHasone 10 mg/NS 50 mL (PYXIS) 10 mg ivpb 10 mg, INTRAVENOUS, Administer over 15 Minutes, ONCE, 1 dose, On Thu08/12/21 at 1300, Administer 30minutes prior to infusion. Refrigerate. New Bag/Syringe/Adzrmy1908/12/2021 1:02 PM EDT10 mg ondansetron (PF) 8 mg injection (ZOFRAN) 8 mg, INTRAVENOUS, ONCE, 1 dose, On Thu08/12/21 at 1300, Administer 30 minutes prior to infusion. Given08/12/2021 1:02 PM EDT8 mgMedication OrderMAR ActionAction DateDoseRateSite CARBOplatin 204.4 mg in NaCl 0.9% 250 mL (PARAPLATIN) 204.4 mg (Target AUC = 2), INTRAVENOUS, Administer over 30 Minutes, ONCE, 1 dose, On Thu08/19/21 [id number], Approx Total Volume: mL EXP:_08/20/21 @ 1445__ Hazardous Chemotherapy Drug: Use appropriate PPE. Antineoplastic Irritant. New Bag/Syringe/Phhwkq8508/19/2021 3:05 PM THJ406.4 mg dexAMETHasone 10 mg/NS 50 mL (PYXIS) 10 mg ivpb (DECADRON) 10 mg, INTRAVENOUS, Administer over 15 Minutes, ONCE, 1 dose, On Thu08/19/21 at 1500, Administer 30minutes prior to infusion. Refrigerate. New Bag/Syringe/Lypdce1208/19/2021 2:45 PM EDT10 mg ondansetron (PF) 8 mg injection (ZOFRAN) 8 mg, INTRAVENOUS, ONCE, 1 dose, On Thu08/19/21 at 1500, Administer 30 minutes prior to infusion. Given04/ 2:45 PM EDT8 mgMedication OrderMAR ActionAction DateDoseRateSite CARBOplatin 213.2 mg in NaCl 0.9% 250 mL (PARAPLATIN) 213.2 mg (Target AUC = 2), INTRAVENOUS, Administer over 30 Minutes, ONCE, 1 dose, On Thu08/26/21 [id number], Approx Total Volume: mL EXP: 08/27/21 1031 Hazardous Chemotherapy Drug: Use appropriate PPE. Antineoplastic Irritant. New Bag/Syringe/Slshja3008/26/2021 11:14 AM RIA405.2 mg dexAMETHasone 10 mg/NS 50 mL (PYXIS) 10 mg ivpb (DECADRON) 10 mg, INTRAVENOUS, Administer over 15 Minutes, ONCE, 1 dose, On Thu08/26/21 at 1030, Administer 30minutes prior to infusion. Refrigerate. New Bag/Syringe/Jlawee5408/26/2021 10:24 AM EDT10 mg ondansetron (PF) 8 [...] Thu09/02/21 at 1030, Approx Total Volume: mL EXP:_5.3.22 @ 1015 Hazardous Chemotherapy Drug: Use appropriate PPE. Antineoplastic Irritant. New Bag/Syringe/Sehkiy8509/02/2021 12:09 PM VXX754.2 mg dexAMETHasone 10 mg/NS 50 mL (PYXIS) 10 mg ivpb (DECADRON) 10 mg, INTRAVENOUS, Administer over 15 Minutes, ONCE, 1 dose, On Thu09/02/21 at 1030, Administer 30 minutes prior to infusion. Refrigerate. New Bag/Syringe/Kkeqdp4609/02/2021 11:46 AM EDT10 mg ondansetron (PF) 8 mg injection (ZOFRAN) 8 mg, INTRAVENOUS, ONCE, 1 dose, On Thu09/02/21 at 1030, Administer 30 minutes prior to infusion. Given09/02/2021 11:46 AM EDT8 mgMedication OrderMAR ActionAction DateDoseRate Site NaCl 0.9% 1,000 mL INTRAVENOUS, at 999 mL/hr, Administer over 1 Hours, ONCE, 1 dose, On Thu09/16/21 at 1230 New Bag/Syringe/Hamfqp8009/16/2021 12:20 PM [id number] mL/hr ondansetron (PF) 8 mg injection (ZOFRAN) 8 mg, INTRAVENOUS, NEEDED, 1 dose, Starting on Thu09/16/21 at 1210, Until Thu09/16/21 at 1240, Nausea/Vomiting - First Line - Parenteral Given09/16/2021 12:40 PM EDT8 mgMedication OrderMAR ActionAction DateDoseRate Site Tuberculin Skin Test, unspecified Given.1 ml Chief Complaint * ALEJO FLOYD is [...] had PVR study several months ago at [facility] which I requested. His cardiac and [...] and Reason for Visit Chief Complaint E78.5 Chief Complaint Admit Date BLE EMG lumbar radiculopathy March 8:27am Additional Source Comments (unrecognized sect ion and [...] section and content) DATE CREATED AUTHOR 10/27/2017 [facility] DATE CREATED AUTHOR AUTHOR'S ORGANIZ ATION 04/10/2018 [facility] DATE CREATED AUTHOR AUTHOR'S ORGANIZ ATION 04/11/2018 [facility] DATE CREATED AUTHOR AUTHOR'S ORGANIZ ATION 04/17/2018 [facility] DATE CREATED AUTHOR AUTHOR'S ORGANIZ ATION 06/21/2021 [facility] DATE CREATED AUTHOR AUTHOR'S ORGANIZ ATION 06/25/2021 [facility] DATE CREATED AUTHOR AUTHOR'S ORGANIZ ATION 10/17/2021 [facility] DATE CREATED AUTHOR AUTHOR'S ORGANIZ ATION 01/29/2022 [facility] DATE CREATED AUTHOR AUTHOR'S ORGANIZ ATION 06/11/2022 [facility] DATE CREATED AUTHOR AUTHOR'S ORGANIZ ATION 06/11/2022 [facility] DATE CREATED AUTHOR AUTHOR'S ORGANIZ ATION 10/10/2022 [facility] DATE CREATED AUTHOR AUTHOR'S ORGANIZ ATION 11/03/2023 [facility] DATE CREATED AUTHOR AUTHOR'S ORGANIZ ATION 02/09/2024 [facility] DATE CREATED AUTHOR AUTHOR'S ORGANIZ ATION 08/01/2024 [facility] DATE CREATED AUTHOR AUTHOR'S ORGANIZ ATION 09/08/[address] [facility] DATE CREATED AUTHOR AUTHOR'S ORGANIZ ATION 09/13/2024 [facility] DATE CREATED AUTHOR AUTHOR'S ORGANIZ ATION 01/12/2025 [facility] DATE CREATED AUTHOR AUTHOR'S ORGANIZ ATION 02/08/2025 [facility] DATE CREATED AUTHOR AUTHOR'S ORGANIZ ATION 03/03/2025 [facility] DATE CREATED AUTHOR AUTHOR'S ORGANIZ ATION 03/15/2025 [facility] Source Comments (unrecognize d section and content) In the event this informatio n is protected by the Federal Confidentiality of Alcohol and Drug Abuse Patient Records regulations: The Federal rules restrict any use of the information to criminally investigate or prosecute any alcohol or drug abuse patient.[facility] HealthIn the event this information is protected by the Federal Confidentiality of Alcohol and Drug Abuse Patient Records regulations: The Federal rules restrict any use of the information to criminally investigate or prosecute any alcohol or drug abuse patient.[facility] HealthIn the event this information is protected by the Federal Confidentiality of Alcohol and Drug Abuse Patient Records regulations: The Federal rules restrict any use of the information to criminally investigate or prosecute any alcohol or drug abuse patient.[facility] HealthIn the event this information is protected by the Federal Confidentiality of Alcohol and Drug Abuse Patient Records regulations: The Federal rules restrict any use of the information to criminally investigate or prosecute any alcohol or drug abuse patient.[facility] HealthIn the event this information is protected by the Federal Confidentiality of Alcohol and Drug Abuse Patient Records regulations: The Federal rules restrict any use of the information to criminally investigate or prosecute any alcohol or drug abuse patient.[facility] HealthIn the event this information is protected by the Federal Confidentiality of Alcohol and Drug Abuse Patient Records regulations: The Federal rules restrict any use of the information to criminally investigate or prosecute any alcohol or drug abuse patient.[facility] HealthIn the event this information is protected by the Federal Confidentiality of Alcohol and Drug Abuse Patient Records regulations: The Federal rules restrict any use of the information to criminally investigate or prosecute any alcohol or drug abuse patient.[facility] HealthIn the event this information is protected by the Federal Confidentiality of Alcohol and Drug Abuse Patient Records regulations: The Federal rules restrict any use of the information to criminally investigate or prosecute any alcohol or drug abuse patient.[facility] HealthIn the event this information is protected by the Federal Confidentiality of Alcohol and Drug Abuse Patient Records regulations: The Federal rules restrict any use of the information to criminally investigate or prosecute any alcohol or drug abuse patient.[facility] HealthIn the event this information is protected by the Federal Confidentiality of Alcohol and Drug Abuse Patient Records regulations: The Federal rules restrict any use of the information to criminally investigate or prosecute any alcohol or drug abuse patient.[facility] HealthIn the event this information is protected by the Federal Confidentiality of Alcohol and Drug Abuse Patient Records regulations: The Federal rules restrict any use of the information to criminally investigate or prosecute any alcohol or drug abuse patient.[facility] HealthIn the event this information is protected by the Federal Confidentiality of Alcohol and Drug Abuse Patient Records regulations: The Federal rules restrict any use of the information to criminally investigate or prosecute any alcohol or drug abuse patient.[facility] HealthIn the event this information is protected by the Federal Confidentiality of Alcohol and Drug Abuse Patient Records regulations: The Federal rules restrict any use of the information to criminally investigate or prosecute any alcohol or drug abuse patient.[facility] HealthIn the event this information is protected by the Federal Confidentiality of Alcohol and Drug Abuse Patient Records regulations: The Federal rules restrict any use of the information to criminally investigate or prosecute any alcohol or drug abuse patient.[facility] HealthIn the event this information is protected by the Federal Confidentiality of Alcohol and Drug Abuse Patient Records regulations: The Federal rules restrict any use of the information to criminally investigate or prosecute any alcohol or drug abuse patient.[facility] HealthIn the event this information is protected by the Federal Confidentiality of Alcohol and Drug Abuse Patient Records regulations: The Federal rules restrict any use of the information to criminally investigate or prosecute any alcohol or drug abuse patient.[facility] HealthIn the event this information is protected by the Federal Confidentiality of Alcohol and Drug Abuse Patient Records regulations: The Federal rules restrict any use of the information to criminally investigate or prosecute any alcohol or drug abuse patient.[facility] HealthIn the event this information is protected by the Federal Confidentiality of Alcohol and Drug Abuse Patient Records regulations: The Federal rules restrict any use of the information to criminally investigate or prosecute any alcohol or drug abuse patient.[facility] HealthIn the event this information is protected by the Federal Confidentiality of Alcohol and Drug Abuse Patient Records regulations: The Federal rules restrict any use of the information to criminally investigate or prosecute any alcohol or drug abuse patient.[facility] HealthIn the event this information is protected by the Federal Confidentiality of Alcohol and Drug Abuse Patient Records regulations: The Federal rules restrict any use of the information to criminally investigate or prosecute any alcohol or drug abuse patient.[facility] HealthIn the event this information is protected by the Federal Confidentiality of Alcohol and Drug Abuse Patient Records regulations: The Federal rules restrict any use of the information to criminally investigate or prosecute any alcohol or drug abuse patient.[facility] HealthIn the event this information is protected by the Federal Confidentiality of Alcohol and Drug Abuse Patient Records regulations: The Federal rules restrict any use of the information to criminally investigate or prosecute any alcohol or drug abuse patient.[facility] HealthIn the event this information is protected by the Federal Confidentiality of Alcohol and Drug Abuse Patient Records regulations: The Federal rules restrict any use of the information to criminally investigate or prosecute any alcohol or drug abuse patient.[facility] HealthIn the event this information is protected by the Federal Confidentiality of Alcohol and Drug Abuse Patient Records regulations: The Federal rules restrict any use of the information to criminally investigate or prosecute any alcohol or drug abuse patient.[facility] HealthIn the event this information is protected by the Federal Confidentiality of Alcohol and Drug Abuse Patient Records regulations: The Federal rules restrict any use of the information to criminally investigate or prosecute any alcohol or drug abuse patient.[facility] HealthIn the event this information is protected by the Federal Confidentiality of Alcohol and Drug Abuse Patient Records regulations: The Federal rules restrict any use of the information to criminally investigate or prosecute any alcohol or drug abuse patient.[facility] HealthIn the event this information is protected by the Federal Confidentiality of Alcohol and Drug Abuse Patient Records regulations: The Federal rules restrict any use of the information to criminally investigate or prosecute any alcohol or drug abuse patient.[facility] HealthIn the event this information is protected by the Federal Confidentiality of Alcohol and Drug Abuse Patient Records regulations: The Federal rules restrict any use of the information to criminally investigate or prosecute any alcohol or drug abuse patient.[facility] HealthIn the event this information is protected by the Federal Confidentiality of Alcohol and Drug Abuse Patient Records regulations: The Federal rules restrict any use of the information to criminally investigate or prosecute any alcohol or drug abuse patient.[facility] HealthIn the event this information is protected by the Federal Confidentiality of Alcohol and Drug Abuse Patient Records regulations: The Federal rules restrict any use of the information to criminally investigate or prosecute any alcohol or drug abuse patient.[facility] HealthIn the event this information is protected by the Federal Confidentiality of Alcohol and Drug Abuse Patient Records regulations: The Federal rules restrict any use of the information to criminally investigate or prosecute any alcohol or drug abuse patient.[facility] HealthIn the event this information is protected by the Federal Confidentiality of Alcohol and Drug Abuse Patient Records regulations: The Federal rules restrict any use of the information to criminally investigate or prosecute any alcohol or drug abuse patient.[facility] HealthIn the event this information is protected by the Federal Confidentiality of Alcohol and Drug Abuse Patient Records regulations: The Federal rules restrict any use of the information to criminally investigate or prosecute any alcohol or drug abuse patient.[facility] HealthIn the event this information is protected by the Federal Confidentiality of Alcohol and Drug Abuse Patient Records regulations: The Federal rules restrict any use of the information to criminally investigate or prosecute any alcohol or drug abuse patient.[facility] HealthIn the event this information is protected by the Federal Confidentiality of Alcohol and Drug Abuse Patient Records regulations: The Federal rules restrict any use of the information to criminally investigate or prosecute any alcohol or drug abuse patient.[facility] HealthIn the event this information is protected by the Federal Confidentiality of Alcohol and Drug Abuse Patient Records regulations: The Federal rules restrict any use of the information to criminally investigate or prosecute any alcohol or drug abuse patient.[facility] HealthIn the event this information is protected by the Federal Confidentiality of Alcohol and Drug Abuse Patient Records regulations: The Federal rules restrict any use of the information to criminally investigate or prosecute any alcohol or drug abuse patient.[facility] HealthIn the event this information is protected by the Federal Confidentiality of Alcohol and Drug Abuse Patient Records regulations: The Federal rules restrict any use of the information to criminally investigate or prosecute any alcohol or drug abuse patient.[facility] HealthIn the event this information is protected by the Federal Confidentiality of Alcohol and Drug Abuse Patient Records regulations: The Federal rules restrict any use of the information to criminally investigate or prosecute any alcohol or drug abuse patient.[facility] HealthIn the event this information is protected by the Federal Confidentiality of Alcohol and Drug Abuse Patient Records regulations: The Federal rules restrict any use of the information to criminally investigate or prosecute any alcohol or drug abuse patient.[facility] HealthIn the event this information is protected by the Federal Confidentiality of Alcohol and Drug Abuse Patient Records regulations: The Federal rules restrict any use of the information to criminally investigate or prosecute any alcohol or drug abuse patient.[facility] HealthIn the event this information is protected by the Federal Confidentiality of Alcohol and Drug Abuse Patient Records regulations: The Federal rules restrict any use of the information to criminally investigate or prosecute any alcohol or drug abuse patient.[facility] HealthIn the event this information is protected by the Federal Confidentiality of Alcohol and Drug Abuse Patient Records regulations: The Federal rules restrict any use of the information to criminally investigate or prosecute any alcohol or drug abuse patient.[facility] HealthIn the event this information is protected by the Federal Confidentiality of Alcohol and Drug Abuse Patient Records regulations: The Federal rules restrict any use of the information to criminally investigate or prosecute any alcohol or drug abuse patient.[facility] HealthIn the event this information is protected by the Federal Confidentiality of Alcohol and Drug Abuse Patient Records regulations: The Federal rules restrict any use of the information to criminally investigate or prosecute any alcohol or drug abuse patient.[facility] HealthIn the event this information is protected by the Federal Confidentiality of Alcohol and Drug Abuse Patient Records regulations: The Federal rules restrict any use of the information to criminally investigate or prosecute any alcohol or drug abuse patient.[facility] HealthIn the event this information is protected by the Federal Confidentiality of Alcohol and Drug Abuse Patient Records regulations: The Federal rules restrict any use of the information to criminally investigate or prosecute any alcohol or drug abuse patient.[facility] HealthIn the event this information is protected by the Federal Confidentiality of Alcohol and Drug Abuse Patient Records regulations: The Federal rules restrict any use of the information to criminally investigate or prosecute any alcohol or drug abuse patient.[facility] HealthIn the event this information is protected by the Federal Confidentiality of Alcohol and Drug Abuse Patient Records regulations: The Federal rules restrict any use of the information to criminally investigate or prosecute any alcohol or drug abuse patient.[facility] HealthIn the event this information is protected by the Federal Confidentiality of Alcohol and Drug Abuse Patient Records regulations: The Federal rules restrict any use of the information to criminally investigate or prosecute any alcohol or drug abuse patient.[facility] HealthIn the event this information is protected by the Federal Confidentiality of Alcohol and Drug Abuse Patient Records regulations: The Federal rules restrict any use of the information to criminally investigate or prosecute any alcohol or drug abuse patient.[facility] HealthIn the event this information is protected by the Federal Confidentiality of Alcohol and Drug Abuse Patient Records regulations: The Federal rules restrict any use of the information to criminally investigate or prosecute any alcohol or drug abuse patient.[facility] HealthIn the event this information is protected by the Federal Confidentiality of Alcohol and Drug Abuse Patient Records regulations: The Federal rules restrict any use of the information to criminally investigate or prosecute any alcohol or drug abuse patient.[facility] HealthIn the event this information is protected by the Federal Confidentiality of Alcohol and Drug Abuse Patient Records regulations: The Federal rules restrict any use of the information to criminally investigate or prosecute any alcohol or drug abuse patient.[facility] HealthIn the event this information is protected by the Federal Confidentiality of Alcohol and Drug Abuse Patient Records regulations: The Federal rules restrict any use of the information to criminally investigate or prosecute any alcohol or drug abuse patient.[facility] HealthIn the event this information is protected by the Federal Confidentiality of Alcohol and Drug Abuse Patient Records regulations: The Federal rules restrict any use of the information to criminally investigate or prosecute any alcohol or drug abuse patient.[facility] HealthIn the event this information is protected by the Federal Confidentiality of Alcohol and Drug Abuse Patient Records regulations: The Federal rules restrict any use of the information to criminally investigate or prosecute any alcohol or drug abuse patient.[facility] HealthIn the event this information is protected by the Federal Confidentiality of Alcohol and Drug Abuse Patient Records regulations: The Federal rules restrict any use of the information to criminally investigate or prosecute any alcohol or drug abuse patient.[facility] HealthIn the event this information is protected by the Federal Confidentiality of Alcohol and Drug Abuse Patient Records regulations: The Federal rules restrict any use of the information to criminally investigate or prosecute any alcohol or drug abuse patient.[facility] HealthIn the event this information is protected by the Federal Confidentiality of Alcohol and Drug Abuse Patient Records regulations: The Federal rules restrict any use of the information to criminally investigate or prosecute any alcohol or drug abuse patient.[facility] HealthIn the event this information is protected by the Federal Confidentiality of Alcohol and Drug Abuse Patient Records regulations: The Federal rules restrict any use of the information to criminally investigate or prosecute any alcohol or drug abuse patient.[facility] HealthIn the event this information is protected by the Federal Confidentiality of Alcohol and Drug Abuse Patient Records regulations: The Federal rules restrict any use of the information to criminally investigate or prosecute any alcohol or drug abuse patient.[facility] HealthIn the event this information is protected by the Federal Confidentiality of Alcohol and Drug Abuse Patient Records regulations: The Federal rules restrict any use of the information to criminally investigate or prosecute any alcohol or drug abuse patient.[facility] HealthIn the event this information is protected by the Federal Confidentiality of Alcohol and Drug Abuse Patient Records regulations: The Federal rules restrict any use of the information to criminally investigate or prosecute any alcohol or drug abuse patient.[facility] HealthIn the event this information is protected by the Federal Confidentiality of Alcohol and Drug Abuse Patient Records regulations: The Federal rules restrict any use of the information to criminally investigate or prosecute any alcohol or drug abuse patient.[facility] HealthIn the event this information is protected by the Federal Confidentiality of Alcohol and Drug Abuse Patient Records regulations: The Federal rules restrict any use of the information to criminally investigate or prosecute any alcohol or drug abuse patient.[facility] HealthIn the event this information is protected by the Federal Confidentiality of Alcohol and Drug Abuse Patient Records regulations: The Federal rules restrict any use of the information to criminally investigate or prosecute any alcohol or drug abuse patient.[facility] HealthIn the event this information is protected by the Federal Confidentiality of Alcohol and Drug Abuse Patient Records regulations: The Federal rules restrict any use of the information to criminally investigate or prosecute any alcohol or drug abuse patient.[facility] HealthIn the event this information is protected by the Federal Confidentiality of Alcohol and Drug Abuse Patient Records regulations: The Federal rules restrict any use of the information to criminally investigate or prosecute any alcohol or drug abuse patient.[facility] HealthIn the event this information is protected by the Federal Confidentiality of Alcohol and Drug Abuse Patient Records regulations: The Federal rules restrict any use of the information to criminally investigate or prosecute any alcohol or drug abuse patient.[facility] HealthIn the event this information is protected by the Federal Confidentiality of Alcohol and Drug Abuse Patient Records regulations: The Federal rules restrict any use of the information to criminally investigate or prosecute any alcohol or drug abuse patient.[facility] HealthIn the event this information is protected by the Federal Confidentiality of Alcohol and Drug Abuse Patient Records regulations: The Federal rules restrict any use of the information to criminally investigate or prosecute any alcohol or drug abuse patient.[facility] HealthIn the event this information is protected by the Federal Confidentiality of Alcohol and Drug Abuse Patient Records regulations: The Federal rules restrict any use of the information to criminally investigate or prosecute any alcohol or drug abuse patient.[facility] HealthIn the event this information is protected by the Federal Confidentiality of Alcohol and Drug Abuse Patient Records regulations: The Federal rules restrict any use of the information to criminally investigate or prosecute any alcohol or drug abuse patient.[facility] Reason for Visit (unrecogniz ed section and content) ReasonOnset DateCommentsRefill Wssjyzr09/29/2022ReasonCommentsNutrition AssessmentReasonCommentsHead and Neck CancerReasonCommentsCare Coordination AntiemeticsReasonCommentsConsultReasonCommentsChemotherapy TreatmentCarboplatin ReasonCommentsPT EvalPatient EducationSpecialtyDiagnoses / ProceduresReferred By ContactReferred To ContactREHAB AND SPORTS THERAPY INS Diagnoses Current smoker Procedures CONSULT TO PHYSICAL THERAPY PHYSICAL THERAPY EVALUATION HIGH COMPLEX 45 MINS Darien Olivarez MD [address] [place] [address] [facility] [place] [address] [place] [id number] Referral IDStatusReasonStharrisonburg DateExpiration DateVisits RequestedVisits [id number] Auto-Generated Referral [id number] CoordinationEducation MaterialReason CommentsRadiotherapy On-treatment VisitSpecialtyDiagnoses / ProceduresReferred By ContactReferred To Contact Diagnoses Cancer of base of tongue (HCC) Procedures CARBOPLATIN INJECTION Esdras Cash MD [address] [place] [address] [place] [address] Yvan Treat Kelsey [address] [place] [address] Referral IDStatusReasonStart DateExpiration DateVisits RequestedVisits [id number] [id number] FjigqnfpreimL3X1 Post Treatment CallReasonCommentstongue cancerReasonComments Nutrition CounselingReferral IDStatusReasonStart DateExpiration DateVisits RequestedVisits [id number]/4/20225/30/537221YonwsnAhozncjp oropharnyx cancerReasonCommentsCancer of base of tongueOTVReasonCommentsPatient UpdateneuropathyReasonCommentsSocial Work ServicesGas card programReferral ID StatusReasonStart DateExpiration DateVisits RequestedVisits [id number] Authorized758144NtofoeOoolbxjyJgvq and Neck CancerurgentReason CommentsCare CoordinationXrayReasonCommentsCare CoordinationPt UpdateReason CommentsNauseaRadiation CancelledReasonCommentsCare CoordinationHospital AdmissionReasonCommentsCare CoordinationDischarge Follow UpReasonCommentsHead and Neck CancerHospital Follow UpReasonCommentsOropharynx cancer1 week follow up ReasonCommentsNutrition TelephoneReasonCommentstongue cancer'follow upReason Onset DateCommentsRefill Qgogccn85/26/2022ReasonCommentstongue cancerFollow up ReasonCommentsHead and Neck CancerReasonCommentsHead and Neck CancerFollow up ReasonCommentsOrdersReasonOnset DateCommentsRefill Ywtmmtj3611/13/2022Reason CommentsRefill RequestReasonCommentsFollow-os8iMwowxuUbmfhmvtNljn and Neck CancerFollow upReasonCommentsRadiology NMSpecialtyDiagnoses / ProceduresReferred By ContactReferred To ContactMOLECULAR & FUNCTIONAL IMAGING Diagnoses Cancer of base of tongue (HCC) Malaise and fatigue Procedures NM PET/CT SKULL-THIGH SUBSEQUENT PET IMAGING CT ATTENUATION SKULL BASE MID-THIGH Esdras Cash MD [address] [place] [address] [address] [place] [phone] [facility] [address] [place] [address] Referral IDStatusReasonStart DateExpiration DateVisits RequestedVisits [id number] Auto-Generated Referral /[id number] / ProceduresReferred By ContactReferred To ContactMOLECULAR & FUNCTIONAL IMAGING Diagnoses Cancer of base of tongue (HCC) Procedures NM PET/CT SKULL-THIGH SUBSEQUENT PET IMAGING CT ATTENUATION SKULL BASE MID-THIGH Esdras Cash MD [address] [place] [address] [place] [address] Molecular & Functional Imaging [address] [place] [address] Referral [facility]Status[facility] DateExpiration DateVisits RequestedVisits [id number] Auto-Generated Referral OON/Self Pay Override /[id number] CTSpecialtyDiagnoses / Procedures Referred By ContactReferred To ContactCT IMAGING Diagnoses Oropharnyx cancer (HCC) Procedures CT CHEST W IVCON DIAGNOSTIC COMPUTED TOMOGRAPHY THORAX W/CONTRAST Kathrine Carpenter MD [address] [place] [address] [place] [address] Ct [facility] [place] [address] Referral IDStatusReasonStart DateExpiration DateVisits RequestedVisits [id number] Auto-Generated Referral 3/15/[id number] IDStatusReasonStart DateExpiration DateVisits RequestedVisits [id number] Auto-Generated Referral /[id number] CTSpecialtyDiagnoses / Procedures Referred By ContactReferred To ContactMOLECULAR & FUNCTIONAL IMAGING Diagnoses Oropharnyx cancer (HCC) Procedures NM PET/CT SKULL-THIGH SUBSEQUENT PET IMAGING CT ATTENUATION SKULL BASE MID-THIGH Kathrine Carpenter MD [address] [place] [address] [place] [address] [facility] [address] [place] [address] Referral IDStatusReasonStart DateExpiration DateVisits RequestedVisits [id number] Auto-Generated Referral /[id number] / ProceduresReferred By ContactReferred To ContactMOLECULAR & FUNCTIONAL IMAGING Diagnoses Malignant neoplasm of head, face and neck (HCC) Procedures NM PET/CT SKULL-THIGH SUBSEQUENT TUMOR IMAGING PET W/CONC CT SKULL-THIGH Kathrine Carpenter MD [address] [place] [address] [place] [address] Molecular [facility] Functional Imaging [address] [place] [address] Referral IDStatusReasonStart DateExpiration DateVisits RequestedVisits [id number]/3/20211/2/902527XtbwgfTfxbbkmwMfjsFvfgqzNudgr Date CommentsMed Lhijom804ReasonCommentsPainReasonCommentsFollow-upEr f/u ReasonOnset DateCommentsMed Snvhsd484ReasonCommentsMed RefillReasonOnset DateCommentsRefill Tamvqha04/02/2024ReasonCommentsMedicare Annual Wellness Visit SubsequentWellnessReasonCommentsFollow-up6 monthSpecialtyDiagnoses / Procedures Referred By ContactReferred To ContactCardiology Diagnoses PVD (peripheral vascular disease) ([facility]-H[facility]) Procedures Follow Up In Cardiology Carmen Neely MD [address] [facility] [address], [place] [address] [place] [id number] Carmen Neely MD [address] [facility] [address], [address] [address] Referral IDStatusReasonStart DateExpiration DateVisits RequestedVisits [id number]/3/20241/024078OdqkfrAengu DateCommentsMed Refill 4ReasonOnset DateCommentsMed Dgmmeg2701/05/2024easonCommentsFollow-up ReasonOnset CvfpHsvjsajdDguek00/09/2025ReasonOnset DateCommentsMed Refill 05/26/2024ReasonCommentsFollow-upNeeds order for rollator walkerReasonComments PainNew PatientNumbnessSwellingReasonCommentsRadio Gen O55GpkmknjurBsikuxysc / ProceduresReferred By ContactReferred To ContactXR IMAGING Diagnoses Pain Procedures XR SHOULDER GENERAL 3V OR MORE AP/TRUE AP/OTHER RIGHT RADEX SHOULDER COMPLETE MINIMUM 2 VIEWS Hebert Miguel MD [address] [place] [address] Phone: tel: fax: [facility] [place] [address] Referral IDStatusReasonStart DateExpiration DateVisits RequestedVisits [id number] Auto-Generated Referral /[id number] DateCommentsMed Swywud1506/24/2024ReasonOnset Date CommentsMed Ieboir4307/25/2024ReasonOnset DateCommentsSTROKE appt07/26/2024Reason Onset DateCommentsMed Myvdcy1208/24/2024ReasonOnset DateCommentsMed Refill 09/06/2024ReasonOnset DateCommentsRefill Rxlclsq7709/06/2024ReasonComments Follow-upHospital f/up SOBReasonCommentsFollow-up6 month Follow up for Peripheral Vascular diseaseSpecialtyDiagnoses / ProceduresReferred By Contact Referred To ContactCardiology Diagnoses PVD (peripheral vascular disease) ([facility]) Procedures Follow Up In Cardiology Carmen Neely MD [address] [facility] [address], [address] [address] Phone: tel: fax: Carmen Neely MD [address] [facility] [address], [address] [address] [place] [address] Phone: tel: fax: Referral IDStatusReasonStart DateExpiration DateVisits RequestedVisits [id number]/16/20247/16/997286LkyicrUcijx DateCommentsMed Iklekd2009/19/2024ReasonCommentsFollow-po1jRgwn PainReasonOnset DateCommentsMed Bfaqvf5711/16/2024ReasonCommentsFoot 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 [...] DateEnd Date Gildardo Lacy [address] [place] [address] PCP - GeneralFamily Practice07/16/20 Esdras Cash MD [address] [facility] [place] [address] PhysicianHematology/Oncology08/07/20 Nathaly Biggs APRN.GROUP HOME MANAGER [address] [facility] [place] [address] Nurse PractitionerHematology/Oncology08/07/20 Cynthia Cutler, SCOTT [address] [facility] [place] [address] Specialty Care CoordinatorHematology/Oncology08/07/20 Kathrine Carpenter MD [address] [facility] [place] [address] PhysicianRadiation Oncology08/07/20Team MemberRelationshipSpecialtyStart DateEnd Date Gildardo Lacy [address] [facility] [place] [place] [address] PCP - GeneralFamily Practice07/16/20 Esdras Cash MD [address] [facility] [place] [address] PhysicianHematology/Oncology08/07/20 Nathaly Biggs, MOLD PRESS OPERATOR.GROUP HOME MANAGER [address] [facility] [place] [address] Nurse PractitionerHematology/Oncology08/07/20 Cynthia Cutler, SCOTT [address] [facility] [place] [address] Specialty Care CoordinatorHematology/Oncology08/07/20 Kathrine Carpenter MD [address] [facility] [place] [address] PhysicianRadiation Oncology08/07/20Team MemberRelationshipSpecialtyStart DateEnd Date Gildardo Lacy [address] [place] [address] PCP - GeneralFamily Practice07/16/20 Esdras Cash MD [address] [facility] [place] [address] PhysicianHematology/Oncology08/07/20 Nathaly Biggs, MOLD PRESS OPERATOR.GROUP HOME MANAGER [address] [facility] [place] [address] Nurse PractitionerHematology/Oncology08/07/20 Cynthia Cutler, RN [address] [facility] [place] [address] Specialty Care CoordinatorHematology/Oncology08/07/20 Kathrine Carpenter MD [address] [facility] [place] [address] PhysicianRadiation Oncology08/07/20Team MemberRelationshipSpecialtyStart DateEnd Date Gildardo Lacy [address] [place] [address] PCP - GeneralGreat[facility] Healthly Practice07/16/20 Esdras Cash MD [address] [facility] [place] [address] PhysicianHematology/Oncology08/07/20 Nathaly Biggs, ALEXY.GROUP HOME MANAGER [address] [facility] [place] [address] Nurse PractitionerHematology/Oncology08/07/20 Cynthia Cutler, RN [address] [facility] [place] [address] Specialty Care CoordinatorHematology/Oncology08/07/20 Kathrine Carpenter MD [address] [facility] [place] [address] PhysicianRadiation Oncology08/07/20Team MemberRelationshipSpecialtyStart DateEnd Date Gildardo Lacy [address] [place] [address] [facility]/16/20 Esdras Cash MD [address] [facility] [place] [address] PhysicianHematology/Oncology08/07/20 Nathaly Biggs, MOLD PRESS OPERATOR.[facility] [address] [facility] [place] [address] Nurse PractitionerHematology/Oncology08/07/20 Cynthia Cutler, SCOTT [address] [facility] [place] [address] Specialty Care CoordinatorHematology/Oncology08/07/20 Kathrine Carpenter MD [address] [facility] [place] [address] PhysicianRadiation Oncology08/07/20Team MemberRelationshipSpecialtyStart DateEnd Date Gildardo Lacy [address] [place] [address] P[facility]07/16/20 Esdras Cash MD [address] [facility] [place] [address] PhysicianHematology/Oncology08/07/20 Nathaly Biggs, MOLD PRESS OPERATOR.GROUP HOME MANAGER [address] [facility] [place] [address] Nurse PractitionerHematology/Oncology08/07/20 Cynthia Cutler, SCOTT [address] [facility] [place] [address] Specialty Care CoordinatorHematology/Oncology08/07/20 Kathrine Carpenter MD [address] [facility] [place] [address] PhysicianRadiation Oncology08/07/20Team MemberRelationshipSpecialtyStart DateEnd Date Gildardo Lacy [address] [place] [address] PCP - GeneralFamily Practice07/16/20 Esdras Cash MD [address] [facility] [place] [address] PhysicianHematology/Oncology08/07/20 Nathaly Biggs, MOLD PRESS OPERATOR.[facility] [address] [facility] [place] [address] Nurse PractitionerHematology/Oncology08/07/20 Cynthia Cutler, RN [address] [facility] [place] [address] Specialty Care CoordinatorHematology/Oncology08/07/20 Kathrine Carpenter MD [address] [facility] [place] [address] PhysicianRadiation Oncology08/07/20Team MemberRelationshipSpecialtyStart DateEnd Date [address]ildardo Lacy [address] [facility] [place] [address] PCP - GeneralFamily Practice07/16/20 Esdras Cash MD [address] [facility] [place] [address] PhysicianHematology/Oncology08/07/20 Nathaly Biggs, MOLD PRESS OPERATOR.[facility] [address] [facility] [place] [address] Nurse PractitionerHematology/Oncology08/07/20 Cynthia Cutler, RN [address] [facility] [place] [address] Specialty Care CoordinatorHematology/Oncology08/07/20 Kathrine Carpenter MD [address] [facility] [place] [address] PhysicianRadiation Oncology08/07/20Team MemberRelationshipSpecialtyStart DateEnd Date Gildardo Lacy [address] [place] [address] PCP - GeneralFamily Practice07/16/20 Esdras Cash MD [address] [facility] [place] [address] PhysicianHematology/Oncology08/07/20 Nathaly Biggs, MOLD PRESS OPERATOR.GROUP HOME MANAGER [address] [facility] [place] [address] Nurse PractitionerHematology/Oncology08/07/20 Cynthia Cutler, RN [address] [facility] [place] [address] Specialty Care CoordinatorHematology/Oncology08/07/20 Kathrine Carpenter MD [address] [facility] [place] [address] PhysicianRadiation Oncology08/07/20Team MemberRelationshipSpecialtyStart DateEnd Date Gildardo Lacy [address] [place] [address] PCP - GeneralFamily Practice07/16/20 Esdras Cash MD [address] [facility] [place] [address] PhysicianHematology/Oncology08/07/20 Nathaly Biggs, MOLD PRESS OPERATOR.GROUP HOME MANAGER [address] [facility] [place] [address] Nurse PractitionerHematology/Oncology08/07/20 Cynthia Cutler, SCOTT [address] [facility] [place] [address] Specialty Care CoordinatorHematology/Oncology08/07/20 Kathrine Carpenter MD [address] [facility] [place] [address] PhysicianRadiation Oncology08/07/20Team MemberRelationshipSpecialtyStart DateEnd Date Gildardo Lacy [address] [place] [address] PCP - GeneralFamily Practice07/16/20 Esdras Cash MD [address] [facility] [place] [address] PhysicianHematology/Oncology08/07/20 Nathaly Biggs, MOLD PRESS OPERATOR.GROUP HOME MANAGER [address] [facility] [place] [address] Nurse PractitionerHematology/Oncology08/07/20 Cynthia Cutler, SCOTT [address] [facility] [place] [address] Specialty Care CoordinatorHematology/Oncology08/07/20 Kathrine Carpenter MD [address] [facility] [place] [address] PhysicianRadiation Oncology08/07/20Team MemberRelationshipSpecialtyStart DateEnd Date Gildardo Lacy [address] [place] [address] PCP - GeneralFamily Practice07/16/20 Esdras Cash MD [address] [facility] [place] [address] PhysicianHematology/Oncology08/07/20 Nathaly Biggs, MOLD PRESS OPERATOR.GROUP HOME MANAGER [address] [facility] [place] [address] Nurse PractitionerHematology/Oncology08/07/20 Cynthia Cutler, RN [address] [facility] [place] [address] Specialty Care CoordinatorHematology/Oncology08/07/20 Kathrine Carpenter MD [address] [facility] [place] [address] PhysicianRadiation Oncology08/07/20Team MemberRelationshipSpecialtyStart DateEnd Date Gildardo Lacy [address] [place] [address] PCP - GeneralFamily Practice07/16/20 Esdras Cash MD [address] [facility] [place] [address] PhysicianHematology/Oncology08/07/20 Nathaly Biggs, MOLD PRESS OPERATOR.GROUP HOME MANAGER [address] [facility] [place] [address] Nurse PractitionerHematology/Oncology08/07/20 Cynthia Cutler, SCOTT [address] [facility] [place] [address] Specialty Care CoordinatorHematology/Oncology08/07/20 Kathrine Carpenter MD [address] [facility] [place] [address] PhysicianRadiation Oncology08/07/20Te MemberRelationshipSpecialtyStart DateEnd Date Gildardo Lacy [address] [place] [address] PCP - GeneralFamily Practice07/16/20 Esdras Cash MD [address] [facility] [place] [address] PhysicianHematology/Oncology08/07/20 Nathaly Biggs, MOLD PRESS OPERATOR.GROUP HOME MANAGER [address] [facility] [place] [address] Nurse PractitionerHematology/Oncology08/07/20 Cynthia Cutler, RN [address] [facility] [place] [address] Specialty Care CoordinatorHematology/Oncology08/07/20 Kathrine Carpenter MD [address] [facility] [place] [address] PhysicianRadiation Oncology08/07/20Team MemberRelationshipSpecialtyStart DateEnd Date Gildardo Lacy [address] [place] [address] PCP - GeneralFamily Practice07/16/20 Esdras Cash MD [address] [facility] [place] [address] PhysicianHematology/Oncology08/07/20 Nathaly Biggs, MOLD PRESS OPERATOR.GROUP HOME MANAGER [address] [facility] [place] [address] Nurse PractitionerHematology/Oncology08/07/20 Cynthia Cutler, RN [address] [facility] [place] [address] Specialty Care CoordinatorHematology/Oncology08/07/20 Kathrine Carpenter MD [address] [facility] [place] [address] PhysicianRadiation Oncology08/07/20Team MemberRelationshipSpecialtyStart DateEnd Date Gildardo Lacy [address] [place] [address] PCP - GeneralFamily Practice07/16/20 Esdras Cash MD [address] [facility] [place] [address] PhysicianHematology/Oncology08/07/20 Nathaly Biggs, MOLD PRESS OPERATOR.[facility] [address] [facility] [place] [address] Nurse PractitionerHematology/Oncology08/07/20 Cynthia Cutler, CSOTT [address] [facility] [place] [address] Specialty Care CoordinatorHematology/Oncology08/07/20 Kathrine Carpenter MD [address] [facility] [place] [address] PhysicianRadiation Oncology08/07/20Team MemberRelationshipSpecialtyStart DateEnd Date Gildardo Lacy [address] [place] [address] [facility]07/16/20 Esdras Cash MD [address] [facility] [place] [address] PhysicianHematology/Oncology08/07/20 Nathaly Biggs, MOLD PRESS OPERATOR.GROUP HOME MANAGER [address] [facility] [place] [address] Nurse PractitionerHematology/Oncology08/07/20 Cynthia Cutler, SCOTT [address] [facility] [place] [address] Specialty Care CoordinatorHematology/Oncology08/07/20 Kathrine Carpenter MD [address] [facility] [place] [address] PhysicianRadiation Oncology08/07/20Team MemberRelationshipSpecialtyStart DateEnd Date Gildardo Lacy [address] [place] [address] PCP - GeneralFamily Practice07/16/20 Esdras Cash MD [address] [facility] [address] [place], [place] [address] PhysicianHematology/Oncology08/07/20 Nathaly Biggs, MOLD PRESS OPERATOR.GROUP HOME MANAGER [address] [facility] [place] [address] Nurse PractitionerHematology/Oncology08/07/20 Cynthia Cutler, RN [address] [facility] [place] [address] Specialty Care CoordinatorHematology/Oncology08/07/20 Kathrine Carpenter MD [address] [facility] [place] [address] PhysicianRadiation Oncology08/07/20Team MemberRelationshipSpecialtyStart DateEnd Date Gildardo Lacy [address] [facility] [place] [address] PCP - GeneralFamily Practice07/16/20 Esdras Cash MD [address] [facility] [place] [address] PhysicianHematology/Oncology08/07/20 Nathaly Biggs, MOLD PRESS OPERATOR.GROUP HOME MANAGER [address] [facility] [place] [address] Nurse PractitionerHematology/Oncology08/07/20 Cynthia Cutler, RN [address] [facility] [place] [address] Specialty Care CoordinatorHematology/Oncology08/07/20 Kathrine Carpenter MD [address] [facility] [place] [address] PhysicianRadiation Oncology08/07/20Team MemberRelationshipSpecialtyStart DateEnd Date Gildardo Lacy [address] [place] [address] PCP - GeneralFamily Practice07/16/20 Esdras Cash MD [address] [facility] [place] [address] PhysicianHematology/Oncology08/07/20 Nathaly Biggs, MOLD PRESS OPERATOR.GROUP HOME MANAGER [address] [facility] [place] [address] Nurse PractitionerHematology/Oncology08/07/20 Cynthia Cutler, SCOTT [address] [facility] [place] [address] Specialty Care CoordinatorHematology/Oncology08/07/20 Kathrine Carpenter MD [address] [facility] [place] [address] PhysicianRadiation Oncology08/07/20Te MemberRelationshipSpecialtyStart DateEnd Date Gildardo Lacy [address] [place] [address] PCP - GeneralFamily Practice07/16/20 Esdras Cash MD [address] [facility] [place] [address] PhysicianHematology/Oncology08/07/20 Nathaly Biggs, MOLD PRESS OPERATOR.GROUP HOME MANAGER [address] [facility] [place] [address] Nurse PractitionerHematology/Oncology08/07/20 Cynthia Cutler, RN [address] [facility] [place] [address] Specialty Care CoordinatorHematology/Oncology08/07/20 Kathrine Carpenter MD [address] [facility] [place] [address] PhysicianRadiation Oncology08/07/20Team MemberRelationshipSpecialtyStart DateEnd Date Gildardo Lacy [address] [place] [address] PCP - GeneralFamily Practice07/16/20 Esdras Cash MD [address] [place] [address] PhysicianHematology/Oncology08/07/20 Nathaly Biggs, MOLD PRESS OPERATOR.GROUP HOME MANAGER [address] [place] [address] Nurse PractitionerHematology/Oncology08/07/20 Cynthia Cutler, SCOTT [address] [place] [address] Specialty Care CoordinatorHematology/Oncology08/07/20 Kathrine Carpenter MD [address] [place] [address] PhysicianRadiation Oncology08/07/20Te MemberRelationshipSpecialtyStart DateEnd Date Gildardo Lacy [address] [address] PCP - GeneralFamily Practice07/16/20 Esdras Cash MD [address] [place] [address] PhysicianHematology/Oncology08/07/20 Nathaly Biggs, MOLD PRESS OPERATOR.GROUP HOME MANAGER [address] [place] [address] Nurse PractitionerHematology/Oncology08/07/20 Cynthia Cutler, SCOTT [address] [place] [address] Specialty Care CoordinatorHematology/Oncology08/07/20 Kathrine Carpenter MD [address] [place] [address] PhysicianRadiation Oncology08/07/20Team MemberRelationshipSpecialtyStart DateEnd Date Gildardo Lacy [address] [place] [address] PCP - GeneralFamily Practice07/16/20 Esdras Cash MD [address] [place] [address] PhysicianHematology/Oncology08/07/20 Nathaly Biggs, MOLD PRESS OPERATOR.GROUP HOME MANAGER [address] [place] [address] Nurse PractitionerHematology/Oncology08/07/20 Cynthia Cutler, SCOTT [address] [place] [address] Specialty Care CoordinatorHematology/Oncology08/07/20 Kathrine Carpenter MD [address] [place] [address] PhysicianRadiation Oncology08/07/20 Amira Powell LSW Social Worker09/16/21Team MemberRelationshipSpecialtyStart DateEnd Date Gildardo Lacy [address] [place] [address] PCP - GeneralFamily Practice07/16/20 Esdras Cash MD [address] [place] [address] PhysicianHematology/Oncology08/07/20 Nathaly Biggs, MOLD PRESS OPERATOR.GROUP HOME MANAGER [address] [facility] [place], [place] [address] Nurse PractitionerHematology/Oncology08/07/20 Cynthia Cutler, SCOTT [address] [place] [address] Specialty Care CoordinatorHematology/Oncology08/07/20 Kathrine Carpenter MD [address] [place] [address] PhysicianRadiation Oncology08/07/20 Amira Powell, THREAD SPOOLER Social Worker09/16/21Team MemberRelationshipSpecialtyStart DateEnd Date Gildardo Lacy [address] [place] [address] [facility] - [facility]/20 Esdras Cash MD [address] [place] [address] PhysicianHematology/Oncology08/07/20 Nathaly Biggs, MOLD PRESS OPERATOR.GROUP HOME MANAGER [address] [place] [address] Nurse PractitionerHematology/Oncology08/07/20 Cynthia Cutler, RN [address] [place] [address] Specialty Care CoordinatorHematology/Oncology08/07/20 Kathrine Carpenter MD [address] [place] [address] PhysicianRadiation Oncology08/07/20 Amira Powell, REINALDO Social Worker09/16/21Team MemberRelationshipSpecialtyStart DateEnd Date Gildardo Lacy [address] [place] [address] PCP - GeneralFamily Practice07/16/20 Esdras Cash MD [address] [place] [address] PhysicianHematology/Oncology08/07/20 Nathaly Biggs, MOLD PRESS OPERATOR.GROUP HOME MANAGER [address] [place] [address] Nurse PractitionerHematology/Oncology08/07/20 Cynthia Cutler, RN [address] [place] [address] Specialty Care CoordinatorHematology/Oncology08/07/20 Kathrine Carpenter MD [address] [place] [address] PhysicianRadiation Oncology08/07/20 Amira Powell LSW Social Worker09/16/21Team MemberRelationshipSpecialtyStart DateEnd Date Gildardo Lacy [address] [place] [address] PCP - GeneralFamily Practice07/16/20 Esdras Cash MD [address] [place] [address] PhysicianHematology/Oncology08/07/20 Nathaly Biggs, MOLD PRESS OPERATOR.GROUP HOME MANAGER [address] [place] [address] Nurse PractitionerHematology/Oncology08/07/20 Cynthia Cutler, RN [address] [place] [address] Specialty Care CoordinatorHematology/Oncology08/07/20 Kathrine Carpenter MD [address] [place] [address] PhysicianRadiation Oncology08/07/20 Amira Powell [facility] Social Worker09/16/21Team MemberRelationshipSpecialtyStart DateEnd Date Gildardo Lacy [address] [place] [address] PCP - GeneralFamily Practice07/16/20 Esdras Cash MD [address] [place] [address] PhysicianHematology/Oncology08/07/20 Nathaly Biggs, MOLD PRESS OPERATOR.GROUP HOME MANAGER [address] [place] [address] Nurse PractitionerHematology/Oncology08/07/20 Cynthia Cutler, SCOTT [address] [place] [address] Specialty Care CoordinatorHematology/Oncology08/07/20 Kathrine Carpenter MD [address] [place] [address] PhysicianRadiation Oncology08/07/20 Amira Powell, [facility] Social Worker09/16/21Team MemberRelationshipSpecialtyStart DateEnd Date Gildardo Lacy [address] [place] [address] PCP - GeneralFamily Practice07/16/20 Esdars Cash MD [address] [place] [address] PhysicianHematology/Oncology08/07/20 Nathaly Biggs, MOLD PRESS OPERATOR.GROUP HOME MANAGER [address] [place] [address] Nurse PractitionerHematology/Oncology08/07/20 Cynthia Cutler, RN [address] [place] [address] Specialty Care CoordinatorHematology/Oncology08/07/20 Kathrine Carpenter MD [address] [place] [address] PhysicianRadiation Oncology08/07/20 Amira Powell LSW Social Worker09/16/21Team MemberRelationshipSpecialtyStart DateEnd Date Gildardo Lacy [address] [place] [address] PCP - GeneralFamily Practice07/16/20 Esdras Cash MD [address] [place] [address] PhysicianHematology/Oncology08/07/20 Nathaly Biggs, MOLD PRESS OPERATOR.GROUP HOME MANAGER [address] [place] [address] Nurse PractitionerHematology/Oncology08/07/20 Cynthia Cutler, RN [address] [place] [address] Specialty Care CoordinatorHematology/Oncology08/07/20 Kathrine Carpenter MD [address] [place] [address] PhysicianRadiation Oncology08/07/20 Amira Powell LSW Social Worker09/16/21Team MemberRelationshipSpecialtyStart DateEnd Date Gildardo Lacy [address] [place] [address] PCP - GeneralFamily Practice07/16/20 Esdras Cash MD [address] [place] [address] PhysicianHematology/Oncology08/07/20 Nathaly Biggs, MOLD PRESS OPERATOR.[facility] [address] [place] [address] Nurse PractitionerHematology/Oncology08/07/20 Cynthia Cutler, SCOTT [address] [place] [address] Specialty Care CoordinatorHematology/Oncology08/07/20 Kathrine Carpenter MD [address] [place] [address] PhysicianRadiation Oncology08/07/20 Amira Powell, REINALDO Social Worker09/16/21Team MemberRelationshipSpecialtyStart DateEnd Date [facility] [address] PCP - GeneralFamily Practice07/16/20 Esdras Cash MD [address] [place] [address] PhysicianHematology/Oncology08/07/20 Nathaly Biggs, MOLD PRESS OPERATOR.[facility] [address] [place] [address] Nurse PractitionerHematology/Oncology08/07/20 Cynthia Cutler, SCOTT [address] [place] [address] Specialty Care CoordinatorHematology/Oncology08/07/20 Kathrine Carpenter MD [address] [place] [address] PhysicianRadiation Oncology08/07/20 Amira Powell LSW Social Worker09/16/21Team MemberRelationshipSpecialtyStart DateEnd Date Gildardo Lacy [address] [place] [address] PCP - GeneralFamily Practice07/16/20 Esdras Cash MD [address] [place] [address] PhysicianHematology/Oncology08/07/20 Nathaly Biggs, MOLD PRESS OPERATOR.GROUP HOME MANAGER [address] [place] [address] Nurse PractitionerHematology/Oncology08/07/20 Cynthia Cutler, SCOTT [address] [place] [address] Specialty Care CoordinatorHematology/Oncology08/07/20 Kathrine Carpetner MD [address] [place] [address] PhysicianRadiation Oncology08/07/20 Amira Powell LSW Social Worker09/16/21Team MemberRelationshipSpecialtyStart DateEnd Date Gildardo Lacy [address] [place] [address] PCP - GeneralFamily Practice07/16/20 Esdras Cash MD [address] [place] [address] PhysicianHematology/Oncology08/07/20 Nathaly Biggs, MOLD PRESS OPERATOR.GROUP HOME MANAGER [address] [place] [address] Nurse PractitionerHematology/Oncology08/07/20 Cynthia Cutler, RN [address] [place] [address] Specialty Care CoordinatorHematology/Oncology08/07/20 Kathrine Carpenter MD [address] [place] [address] PhysicianRadiation Oncology08/07/20 Amira Powell, THREAD SPOOLER Social Worker09/16/21Team MemberRelationshipSpecialtyStart DateEnd Date Gildardo Lacy [address] [place] [address] [facility] - [facility]07/16/20 Esdras Cash MD [address] [place] [address] PhysicianHematology/Oncology08/07/20 Nathaly Biggs, MOLD PRESS OPERATOR.GROUP HOME MANAGER [address] [place] [address] Nurse PractitionerHematology/Oncology08/07/20 Cynthia Cutler, SCOTT [address] [place] [address] Specialty Care CoordinatorHematology/Oncology08/07/20 Kathrine Carpenter MD [address] [place] [address] PhysicianRadiation Oncology08/07/20 Amira Powell, [facility] Social Worker09/16/21Team MemberRelationshipSpecialtyStart DateEnd Date Gildardo Lacy [address] [address] P[facility] Medicine07/16/20 Esdras Cash MD [address] [place] [address] PhysicianHematology/Oncology08/07/20 Nathaly Biggs, MOLD PRESS OPERATOR.GROUP HOME MANAGER [address] [place] [address] Nurse PractitionerHematology/Oncology08/07/20 Cynthia Cutler, RN [address] [place] [address] Specialty Care CoordinatorHematology/Oncology08/07/20 Kathrine Carpenter MD [address] [place] [address] PhysicianRadiation Oncology08/07/20 Amira Powell [facility] Social Worker09/16/21Team MemberRelationshipSpecialtyStart DateEnd Date Gildardo Lacy [address] [place] [address] PCP - [facility] Medicine07/16/20 Esdras Cash MD [address] [place] [address] PhysicianHematology/Oncology08/07/20 Nathaly Biggs, MOLD PRESS OPERATOR.GROUP HOME MANAGER [address] [place] [address] Nurse PractitionerHematology/Oncology08/07/20 Cynthia Cutler, RN [address] [place] [address] Specialty Care CoordinatorHematology/Oncology08/07/20 Kathrine Carpenter MD [address] [place] [address] PhysicianRadiation Oncology08/07/20 Amira Powell THREAD SPOOLER Social Worker09/16/21Team MemberRelationshipSpecialtyStart DateEnd Date Gildardo Lacy [address] [place] [address] P[facility]07/16/20 Esdras Cash MD [address] [facility] [address] [place], [place] [address] PhysicianHematology/Oncology08/07/20 Nathaly Biggs, MOLD PRESS OPERATOR.GROUP HOME MANAGER [address] [place] [address] Nurse PractitionerHematology/Oncology08/07/20 Cynthia Cutler, RN [address] [place] [address] Specialty Care CoordinatorHematology/Oncology08/07/20 Kathrine Carpenter MD [address] [place] [address] PhysicianRadiation Oncology08/07/20 Amira Powell LSW Social Worker09/16/21Team MemberRelationshipSpecialtyStart DateEnd Date Gildardo Lacy [address] [facility] [place] [address] PCP - GeneralFamily Medicine07/16/20 Esdras Cash MD [address] [place] [address] PhysicianHematology/Oncology08/07/20 Nathaly Biggs, MOLD PRESS OPERATOR.GROUP HOME MANAGER [address] [place] [address] Nurse PractitionerHematology/Oncology08/07/20 Cynthia Cutler, RN [address] [place] [address] Specialty Care CoordinatorHematology/Oncology08/07/20 Kathrine Carpenter MD [address] [place] [address] PhysicianRadiation Oncology08/07/20 Amira Powell LSW Social Worker09/16/21Team MemberRelationshipSpecialtyStart DateEnd Date Gildardo Lacy [address] [place] [address] PCP - [facility] Medicine07/16/20 Esdras Cash MD [address] [facility] [facility] [address] [place], [place] [address] PhysicianHematology/Oncology08/07/20 Nathaly Biggs, MOLD PRESS OPERATOR.GROUP HOME MANAGER [address] [place] [address] Nurse PractitionerHematology/Oncology08/07/20 Cynthia Cutler, SCOTT [address] [place] [address] Specialty Care CoordinatorHematology/Oncology08/07/20 Kathrine Carpenter MD [address] [facility] [address] [place], [place] [address] PhysicianRadiation Oncology08/07/20 Amira Powell [facility] Social Worker09/16/21Team MemberRelationshipSpecialtyStart DateEnd Date Gildardo Lacy [address] [place] [address] PCP - [facility] Medicine07/16/20 Esdras Cash MD [address] [place] [address] PhysicianHematology/Oncology08/07/20 Nathaly Biggs, MOLD PRESS OPERATOR.GROUP HOME MANAGER [address] [facility] [facility] [address] [place], [place] [address] Nurse PractitionerHematology/Oncology08/07/20 Cynthia Cutler, RN [address] [facility] [place] [address] Specialty Care CoordinatorHematology/Oncology08/07/20 Kathrine Carpenter MD [address] [place] [address] PhysicianRadiation Oncology08/07/20 Amira Powell LSW Social Worker09/16/21Team MemberRelationshipSpecialtyStart DateEnd Date Gildardo Lacy [address] [place] [address] PCP - GeneralFamdly Medicine07/16/20 Esdras Cash MD [address] [facility] [place] [address] PhysicianHematology/Oncology08/07/20 Nathaly Biggs, MOLD PRESS OPERATOR.GROUP HOME MANAGER [address] [facility] [place] [address] Nurse PractitionerHematology/Oncology08/07/20 Cynthia Cutler, SCOTT [address] [facility] [place] [address] Specialty Care CoordinatorHematology/Oncology08/07/20 Kathrine Carpenter MD [address] [facility] [place] [address] PhysicianRadiation Oncology08/07/20 Amira Powell LSW Social Worker09/16/21Team MemberRelationshipSpecialtyStart DateEnd Date Gildardo Lacy [address] [place] [address] PCP - GeneralFamily Medicine07/16/20 Esdras Cash MD [address] [facility] [place] [address] PhysicianHematology/Oncology08/07/20 Nathaly Biggs, MOLD PRESS OPERATOR.GROUP HOME MANAGER [address] [place] [address] Nurse PractitionerHematology/Oncology08/07/20 Cynthia Cutler, SCOTT [address] [facility] [place] [address] Specialty Care CoordinatorHematology/Oncology08/07/20 Kathrine Carpenter MD [address] [facility] [place] [address] PhysicianRadiation Oncology08/07/20 Amira Powell LSW Social Worker09/16/21Team MemberRelationshipSpecialtyStart DateEnd Date Gildardo Lacy [address] [facility] [place] [place] [address] PCP - [facility] Medicine07/16/20 Esdras Cash MD [address] [place] [address] PhysicianHematology/Oncology08/07/20 Nathaly Biggs, MOLD PRESS OPERATOR.GROUP HOME MANAGER [address] [place] [address] Nurse PractitionerHematology/Oncology08/07/20 Kathrine Carpenter MD [address] [place] [address] PhysicianRadiation Oncology08/07/20 Amira Powell LSW Social Worker09/16/21Team MemberRelationshipSpecialtyStart DateEnd Date Gildardo Lacy MD PCP - General05/04/99Team MemberRelationshipSpecialtyStart DateEnd Date Gildardo Lacy [address] [place] [address] [facility] - [facility] Medicine07/16/20 Esdras Cash MD [address] [facility] [place] [address] PhysicianHematology/Oncology08/07/20 Nathaly Biggs, MOLD PRESS OPERATOR.GROUP HOME MANAGER [address] [facility] [place] [address] Nurse PractitionerHematology/Oncology08/07/20 Kathrine Carpenter MD [address] [facility] [place] [address] PhysicianRadiation Oncology08/07/20 Amira Powell, [facility] Social Worker09/16/21Team MemberRelationshipSpecialtyStart DateEnd Date Gildardo Lacy [address] [place] [address] PCP - [facility] Medicine07/16/20 Esdras Cash MD [address] [facility] [place] [address] PhysicianHematology/Oncology08/07/20 Nathaly Biggs, MOLD PRESS OPERATOR.GROUP HOME MANAGER [address] [facility] [place] [address] Nurse PractitionerHematology/Oncology08/07/20 Kathrine Carpenter MD [address] [place] [address] [place] [address] PhysicianRadiation Oncology08/07/20 Amira Powell, THREAD SPOOLER Social Worker09/16/21Team MemberRelationshipSpecialtyStart DateEnd Date Gildardo Lacy [address] [place] [address] PCP - GeneralFamily Medicine07/16/20 Esdras Cash MD [address] [place] [address] [place] [address] PhysicianHematology/Oncology08/07/20 Nathaly Biggs APRN.GROUP HOME MANAGER [address] [place] [address] [place] [address] Nurse PractitionerHematology/Oncology08/07/20 Kathrine Carpenter MD [address] [place] [address] [place] [address] PhysicianRadiation Oncology08/07/20 Amira Powell, [facility] Social Worker09/16/21 Team Status: Active Member Role Status Dates Gildardo Lacy MD Primary Care Provider Active Team Status: Inactive Member Role Status Dates Gildardo Lacy MD Primary Care Provider Active S tart: September 08, 2023 End: September 08, 2023HaRaven Lewending ProviderActiveStart: September 08, 2023 End: September 08, 2023Team MemberRelationshipSpecialtyStart DateEnd Date Gildardo Lacy [address] [place] [address] PCP - GeneralFamily Medicine07/16/20 Esdras Cash MD [address] [facility] [place] [address] PhysicianHematology/Oncology08/07/20 Nathaly Biggs, MOLD PRESS OPERATOR.GROUP HOME MANAGER [address] [facility] [place] [address] Nurse PractitionerHematology/Oncology08/07/20 Kathrine Carpenter MD [address] [facility] [place] [address] PhysicianRadiation Oncology08/07/20 Amira Powell, THREAD SPOOLER Social Worker09/16/21Team MemberRelationshipSpecialtyStart DateEnd Date Gildardo Lacy [address] [place] [address] PCP - Generalmily Medicine07/16/20 Esdras Cash MD [address] [facility] [place] [address] PhysicianHematology/Oncology08/07/20 Nathaly Biggs, MOLD PRESS OPERATOR.GROUP HOME MANAGER [address] [facility] [place] [address] Nurse PractitionerHematology/Oncology08/07/20 Kathrine Carpenter MD [address] [facility] [place] [address] PhysicianRadiation Oncology08/07/20 Amira Powell, THREAD SPOOLER Social Worker09/16/21Team MemberRelationshipSpecialtyStart DateEnd Date Gildardo Lacy [address] [place] [address] PCP - GeneralFamily Medicine07/16/20 Esdras Cash MD [address] [facility] [place] [address] PhysicianHematology/Oncology08/07/20 Nathaly Biggs, MOLD PRESS OPERATOR.GROUP HOME MANAGER [address] [facility] [place] [address] Nurse PractitionerHematology/Oncology08/07/20 Cynthia Cutler, SCOTT [address] [facility] [place] [address] Specialty Care CoordinatorHematology/Oncology08/07/2110 Kathrine Carpenter MD [address] [place] [address] [place] [address] PhysicianRadiation Oncology08/07/20 Amira Powell LSW Social Worker09/16/21Team MemberRelationshipSpecialtyStart DateEnd Date Gildardo Lacy [address] [place] [address] PCP - GeneralFamily Medicine07/16/20 Esdras Cash MD [address] [place] [address] [place] [address] PhysicianHematology/Oncology08/07/20 Nathaly Biggs, MOLD PRESS OPERATOR.GROUP HOME MANAGER [address] [facility] [place] [address] Nurse PractitionerHematology/Oncology08/07/20 Cynthia Cutler, SCOTT [address] [facility] [place] [address] Specialty Care CoordinatorHematology/Oncology08/07/2110 Kathrine Carpenter MD [address] [facility] [place] [address] PhysicianRadiation Oncology08/07/20 Amira Powell LSW Social Worker09/16/21Team MemberRelationshipSpecialtyStart DateEnd Date Gildardo Lacy [address] [place] [address] PCP - GeneralFamdly Medicine07/16/20 Esdras Cash MD [address] [facility] [place] [address] PhysicianHematology/Oncology08/07/20 Nathaly Biggs, ALEXY.GROUP HOME MANAGER [address] [facility] [place] [address] Nurse PractitionerHematology/Oncology08/07/20 Cynthia Cutler, RN [address] [facility] [place] [address] Specialty Care CoordinatorHematology/Oncology08/07/2110 Kathrine Carpenter MD [address] [facility] [place] [address] PhysicianRadiation Oncology08/07/20 Amira Powell LSW Social Worker09/16/21Team MemberRelationshipSpecialtyStart DateEnd Date Gildardo Lacy [address] [place] [address] PCP - Generalmily Medicine07/16/20 Esdras Cash MD [address] [facility] [place] [address] PhysicianHematology/Oncology08/07/20 Nathaly Biggs, MOLD PRESS OPERATOR.GROUP HOME MANAGER [address] [facility] [place] [address] Nurse PractitionerHematology/Oncology08/07/20 Cynthia Cutler, RN [address] [facility] [place] [address] Specialty Care CoordinatorHematology/Oncology08/07/2110 Kathrine Carpenter MD [address] [place] [address] [place] [address] PhysicianRadiation Oncology08/07/20Team MemberRelationshipSpecialtyStart DateEnd Date Gildardo Lacy [address] [facility] [place] [address] PCP - GeneralFamily Medicine07/16/20 Esdras Cash MD [address] [place] [address] [place] [address] PhysicianHematology/Oncology08/07/20 Nathaly Biggs, MOLD PRESS OPERATOR.GROUP HOME MANAGER [address] [facility] [place] [address] Nurse PractitionerHematology/Oncology08/07/20 Cynthia Cutler, RN [address] [facility] [place] [address] Specialty Care CoordinatorHematology/Oncology08/07/2110 Kathrine Carpenter MD [address] [place] [address] [place] [address] PhysicianRadiation Oncology08/07/20Team MemberRelationshipSpecialtyStart DateEnd Date Gildardo Lacy MD [address] [place] [address] PCP - GeneralCardiology09/12/22Team MemberRelationshipSpecialtyStart DateEnd Date Gildardo Lacy MD [address] [place] [address] PCP - GeneralCardiology09/12/22Team MemberRelationshipSpecialtyStart DateEnd Date Gildardo Lacy MD [address] [place] [address] PCP - GeneralCardiology09/12/22Team MemberRelationshipSpecialtyStart DateEnd Date Gildardo Lacy MD [address] [place] [address] PCP - GeneralCardiology09/12/22Team MemberRelationshipSpecialtyStart DateEnd Date Gildardo Lacy MD [address] [place] [address] PCP - GeneralCardiology09/12/22Team MemberRelationshipSpecialtyStart DateEnd Date Gildardo Lacy MD [address] [place] [address] PCP - GeneralCardiology09/12/22Team MemberRelationshipSpecialtyStart DateEnd Date Gildardo Lacy MD [address] [place] [address] PCP - GeneralCardiology5/23Team MemberRelationshipSpecialtyStart DateEnd Date Gildardo Lacy MD [address] [place] [address] PCP - GeneralCardiology09/12/22Team MemberRelationshipSpecialtyStart DateEnd Date Gildardo Lacy MD [address] [place] [address] PCP - GeneralCardiology09/12/22Team MemberRelationshipSpecialtyStart DateEnd Date Gildardo Lacy MD [address] [place] [address] PCP - GeneralCardiology5Team MemberRelationshipSpecialtyStart DateEnd Date Gildardo Lacy MD [address] [place] [address] PCP - GeneralCardiology523Team MemberRelationshipSpecialtyStart DateEnd Date Gildardo Lacy MD [address] [place] [address] PCP - GeneralCardiology5/23Team MemberRelationshipSpecialtyStart DateEnd Date Gildardo Lacy MD [address] [place] [address] PCP - GeneralFamily Medicine07/16/20 Esdras Cash MD [address] [facility] [place] [address] PhysicianHematology/Oncology08/07/20 Nathaly Biggs APRN.GROUP HOME MANAGER [address] [place] [address] Nurse PractitionerHematology/Oncology08/07/20 Kathrine Carpenter MD [address] [facility] [place] [address] PhysicianRadiation Oncology08/07/20 Amira Powell LSW Social Worker09/16/21Team MemberRelationshipSpecialtyStart DateEnd Date Gildardo Lacy MD [address] [place] [address] PCP - GeneralCardiology09/12/22Team MemberRelationshipSpecialtyStart DateEnd Date Gildardo Lacy MD [address] [place] [address] PCP - GeneralCardiology09/12/22Team MemberRelationshipSpecialtyStart DateEnd Date Gildardo Lacy MD [address] [place] [address] PCP - GeneralCardiology09/12/22Team MemberRelationshipSpecialtyStart DateEnd Date Gildardo Lacy MD [address] [place] [address] PCP - GeneralFamily Medicine11/17/23Team MemberRelationshipSpecialtyStart DateEnd Date Gildardo Lacy MD [address] [place] [address] PCP - GeneralCardiology09/12/22Team MemberRelationshipSpecialtyStart DateEnd Date Gildardo Lacy MD [address] [place] [address] PCP - GeneralCardiology09/12/22Team MemberRelationshipSpecialtyStart DateEnd Date Gildardo Lacy MD [address] [place] [address] PCP - GeneralCardiology09/12/22Team MemberRelationshipSpecialtyStart DateEnd Date Gildardo Lacy MD [address] [place] [address] PCP - GeneralCardiology09/12/22Team MemberRelationshipSpecialtyStart DateEnd Date Gildardo Lacy MD [address] [place] [address] PCP - GeneralCardiology09/12/22Team MemberRelationshipSpecialtyStart DateEnd Date Gildardo Lacy MD [address] [place] [address] PCP - GeneralCardiology09/12/22Team MemberRelationshipSpecialtyStart DateEnd Date Gildardo Lacy MD [address] [place] [address] PCP - GeneralCardiology09/12/22Team MemberRelationshipSpecialtyStart DateEnd Date Gildardo Lacy MD [address] [place] [address] PCP - GeneralCardiology09/12/22Team MemberRelationshipSpecialtyStart DateEnd Date Gildardo Lacy MD [address] [place], [place] [address] PCP - GeneralFamily Medicine07/16/20 Esdras Cash MD [address] [facility] [place] [address] PhysicianHematology/Oncology08/07/20 Nathaly Biggs APRN.GROUP HOME MANAGER [address] [facility] [place] [address] Nurse PractitionerHematology/Oncology08/07/20 Kathrine Carpenter MD [address] [facility] [place] [address] PhysicianRadiation Oncology08/07/20 Amira Powell LSW Social Worker09/16/21 Cassie Hood PA [address] [address] [place] [address] Family Medicine05/24/24Team MemberRelationshipSpecialtyStart DateEnd Date Gildardo Lacy MD [address] [place] [address] PCP - GeneralCardiology09/12/22Team MemberRelationshipSpecialtyStart DateEnd Date Gildardo Lacy MD [address] [place] [address] PCP - [facility] Medicine07/16/20 Esdras Cash MD [address] [facility] [place] [address] PhysicianHematology/Oncology08/07/20 Nathaly Biggs, MOLD PRESS OPERATOR.GROUP HOME MANAGER [address] [facility] [place] [address] Nurse PractitionerHematology/Oncology08/07/20 Kathrine Carpenter MD [address] [facility] [place] [address] PhysicianRadiation Oncology08/07/20 Amira Powell, [facility] Social Worker09/16/21 Cassie Hood PA [address] [place] [address] [facility]05/24/24Team MemberRelationshipSpecialtyStart DateEnd Date Gildardo Lacy MD [address] [place] [address] PCP - [facility] Medicine07/16/20 Esdras Cash MD [address] [facility] [place] [address] PhysicianHematology/Oncology08/07/20 Nathaly Biggs, MOLD PRESS OPERATOR.GROUP HOME MANAGER [address] [facility] [place] [address] Nurse PractitionerHematology/Oncology08/07/20 Kathrine Carpenter MD [address] [facility] [place] [address] PhysicianRadiation Oncology08/07/20 Amira Powell, THREAD SPOOLER Social Worker09/16/21 Cassie Hood, PA [address] [facility] [address] [place] [address] Family Medicine05/24/24Team MemberRelationshipSpecialtyStart DateEnd Date Gildardo Lacy MD [address] [address] PCP - GeneralCardiology09/12/22Team MemberRelationshipSpecialtyStart DateEnd Date Gildardo Lacy MD [address] [place] [address] PCP - GeneralFamily Medicine07/16/20 Esdras Cash MD [address] [facility] [place] [address] PhysicianHematology/Oncology08/07/20 Nathaly Biggs APRN.GROUP HOME MANAGER [address] [facility] [place] [address] Nurse PractitionerHematology/Oncology08/07/20 Kathrine Carpenter MD [address] [facility] [place] [address] PhysicianRadiation Oncology08/07/20 Amira Powell, THREAD SPOOLER Social Worker09/16/21 Cassie Hood, PA [address] [address] [place] [address] Family Medicine05/24/24Team MemberRelationshipSpecialtyStart DateEnd Date Gildardo Lacy MD PCP - GeneralFamily Hxmgxqrn41/14/18Team MemberRelationshipSpecialtyStart Date End Date Gildardo Lacy MD [address] [place] [address] PCP - GeneralCardiology09/12/22Team MemberRelationshipSpecialtyStart DateEnd Date Gildardo Lacy MD [address] [place] [address] PCP - GeneralCardiology09/12/22Team MemberRelationshipSpecialtyStart DateEnd Date Gildardo Lacy MD [address] [place] [address] PCP - GeneralCardiology09/12/22Team MemberRelationshipSpecialtyStart DateEnd Date Gildardo Lacy MD [address] [place] [address] PCP - GeneralCardiology09/12/22 Gildardo Lacy MD [address] [place] [address] PCP - [facility]oted09/01/24Team MemberRelationshipSpecialtyStart DateEnd Date Gildardo Lacy MD [address] [place] [address] PCP - GeneralFamily Medicine07/16/20 Esdras Cash MD [address] [facility] [place] [address] PhysicianHematology/Oncology08/07/20 Nathaly Biggs APRN.GROUP HOME MANAGER [address] [facility] [place] [address] Nurse PractitionerHematology/Oncology08/07/20 Kathrine Carpenter MD [address] [facility] [place] [address] PhysicianRadiation Oncology08/07/20 Amira Powell LSW Social Worker09/16/21 Cassie Hood PA [address] [facility] [address] [place], [place] [id number] Family Medicine05/24/24Team MemberRelationshipSpecialtyStart DateEnd Date Gildardo Lacy MD [address] [place] [address] PCP - GeneralCardiology09/12/22 Gildardo Lacy MD [address] [place] [address] PCP - Devoted09/01/24Team MemberRelationshipSpecialtyStart DateEnd Date Gildardo Lacy MD [address] [place] [address] PCP - GeneralCardiology09/12/22 Gildardo Lacy MD [address] [place] [address] PCP - Devoted09/01/24Team MemberRelationshipSpecialtyStart DateEnd Date Gildadro Lacy MD [address] [place] [address] PCP - Generalmily Medicine11/17/23Team MemberRelationshipSpecialtyStart DateEnd Date Gildardo Lacy MD [address] [place] [address] PCP - GeneralCardiology09/12/22 Gildardo Lacy MD [address] [place] [address] PCP - Devoted09/01/24Team MemberRelationshipSpecialtyStart DateEnd Date Gildardo Lacy MD [address] [place] [address] PCP - GeneralCardiology09/12/22 Gildardo Lacy MD [address] [place] [address] PCP - Devoted09/01/24Team MemberRelationshipSpecialtyStart DateEnd Date Gildardo Lacy MD [address] [place] [address] PCP - GeneralCardiology09/12/22 Gildardo Lacy MD [address] [place] [address] PCP - Devoted09/01/24Team MemberRelationshipSpecialtyStart DateEnd Date Gildardo Lacy MD [address] [place] [address] PCP - GeneralCardiology09/12/22 Gildardo Lacy MD [address] [place] [address] PCP - Devoted09/01/24Team MemberRelationshipSpecialtyStart DateEnd Date Gildardo Lacy MD [address] [place] [address] PCP - GeneralCardiology09/12/22 Gildardo Lacy MD [address] [place] [address] PCP - Devoted09/01/24Team MemberRelationshipSpecialtyStart DateEnd Date Gildardo Lacy MD [address] [place] [address] PCP - GeneralCardiology09/12/22 Gildardo Lacy MD [address] [place] [address] PCP - Devoted09/01/24Team MemberRelationshipSpecialtyStart DateEnd Date Gildardo Lacy MD [address] [place] [address] PCP - GeneralCardiology09/12/22 Gildardo Lacy MD [address] [place] [address] PCP - Devoted09/01/24Team MemberRelationshipSpecialtyStart DateEnd Date Gildardo Lacy MD [address] [place] [address] PCP - GeneralCardiology09/12/22 Gildardo Lacy MD [address] [place] [address] PCP - Devoted09/01/24Team MemberRelationshipSpecialtyStart DateEnd Date Gildardo Lacy MD [address] [place] [address] PCP - GeneralCardiology09/12/22 Gildardo Lacy MD [address] [place] [address] PCP - Devoted09/01/24Team MemberRelationshipSpecialtyStart DateEnd Date Gildardo Lacy MD [address] [place] [address] PCP - GeneralCardiology09/12/22 Gildardo Lacy MD [address] [place] [address] PCP - Devoted09/01/24Team MemberRelationshipSpecialtyStart DateEnd Date Gildardo Lacy MD [address] [place] [address] PCP - GeneralCardiology09/12/22 Gildardo Lacy MD [address] [place] [address] PCP - Devoted09/01/24Team MemberRelationshipSpecialtyStart DateEnd Date Gildardo Lacy MD [address] [place], [place] [address] PCP - [facility]Great[facility] Healthly Medicine07/16/20 Nathaly Biggs APRN.GROUP HOME MANAGER [address] [facility] [address] Nurse PractitionerHematology/Oncology08/07/20 Kathrine Carpenter MD [address] [facility] [address] [place] [address] PhysicianRadiation Oncology08/07/20 Amira Powell LSW Social Worker09/16/21 Cassie Hood PA [address] [facility] [address] [place], [place] [address] Family Medicine05/24/24Team MemberRelationshipSpecialtyStart DateEnd Date Gildardo Lacy MD [facility] - [facility] Plyfdkbh06/14/18Team MemberRelationshipSpecialtyStart Date End Date Gildardo Lacy MD [address] [place] [address] PCP - GeneralCardiology09/12/22 Gildardo Lacy MD [address] [place] [address] PCP - Devoted09/01/24Team MemberRelationshipSpecialtyStart DateEnd Date Gildardo Lacy MD [address] [place] [address] PCP - GeneralCardiology09/12/22 Gildardo Lacy MD [address] [place] [address] PCP - Devoted09/01/24Team MemberRelationshipSpecialtyStart DateEnd Date Gildardo Lacy MD [address] [place] [address] PCP - GeneralCardiology09/12/22 Gildardo Lacy MD [address] [place] [address] PCP - Devoted09/01/24Team MemberRelationshipSpecialtyStart DateEnd Date Gildardo Lacy MD [address] [place] [address] PCP - GeneralCardiology09/12/22 Gildardo Lacy MD [address] [place] [address] PCP - Devoted09/01/24Team MemberRelationshipSpecialtyStart DateEnd Date Gildardo Lacy MD [address] [place] [address] PCP - GeneralCardiology09/12/22 Gildardo Lacy MD [address] [place] [address] PCP - Devoted09/01/24 Team Status: Active Member Role/Relationship Status Dates Gildardo Lacy MD Primary Care Provider Active Team Status: Active Member Role/Relationship Status Dates Gildardo Lacy MD Primary Care Provider Active S tart: February 15, 2025 Jacqueline Jj MDAttending ProviderActiveStart: February 15, 2025 Team Status: Inactive Member Role/Relationship Status Dates Gildardo Lacy MD Primary Care Provider Active S tart: March 06, 2025 End: March 06, 2025Abby Sousa DOAttending ProviderActiveStart: March 06, 2025 End: March 06, 2025 Goals (unrecognized section and content) Goals may be documented in a n alternate sectionNot on filedocumented as of this encounterNot on filedocumented as of this encounterGoals may be documented in an alternate section FOR RECORDS PERTAINING TO PATIENTS [...] BE BASED ON THE PRIMARY CLINICAL RECORDS. [facility]. provides no warranty or guarantee of the accuracy or completeness of information in this document.
--- NOTE | 2025-03-16 08:29 | PM.CN ---
Consult Note: HPI Data of Consult Patient: known to practice within the last 3 years Consult date: 03/16/25 Requesting Physician: Arelis Medina NP Primary Care Provider: Gildardo Paredes MD Consult Narrative Reason for consult: low back pain, bilateral leg pain Narrative: 64yom who presents for evaluation. notes worsening low back pain with difficulty ambulating, several falls, numbness into left leg. history of throat cancer and recent significant weight loss, next f/u with oncology in 3 months. recently underwent screening which oncology deemed unremarkable. uses percocet and pregabalin 50mg TID. denies adverse med side effects. pain improving with pregabalin. today 10/11 in low back minimal in LLE. cc:: CC: Arelis Medina NP Review of Systems ROS Musculoskeletal Reports: back pain PFSH PFSH Medical History Acute hypoxic respiratory failure ?J96.01 - Acute respiratory failure with hypoxia (ICD-10) Cerebrovascular disease ?I67.9 - Cerebrovascular disease, unspecified (ICD-10) Benign essential hypertension ?I10 - Essential (primary) hypertension (ICD-10) Asthma exacerbation in COPD ?J44.1 - Chronic obstructive pulmonary disease with (acute) exacerbation (ICD-10) Hypoxemia ?R09.02 - Hypoxemia (ICD-10) Acute ischemic right BONY stroke ?I63.521 - Cerebral infarction due to unspecified occlusion or stenosis of right anterior cerebral artery (ICD-10) Peripheral arterial disease ?I73.9 - Peripheral vascular disease, unspecified (ICD-10) Occlusion of left internal carotid artery ?I65.22 - Occlusion and stenosis of left carotid artery (ICD-10) COPD (chronic obstructive pulmonary disease) ?J44.9 - Chronic obstructive pulmonary disease, unspecified (ICD-10) Chemotherapy-induced neuropathy ?G62.0 - Drug-induced polyneuropathy (ICD-10) ?T45.1X5A - Adverse effect of antineoplastic and immunosuppressive drugs, initial encounter (ICD-10) Macrocytic anemia ?D53.9 - Nutritional anemia, unspecified (ICD-10) Hyponatremia ?E87.1 - Hypo-osmolality and hyponatremia (ICD-10) Hypomagnesemia ?E83.42 - Hypomagnesemia (ICD-10) Bilateral carotid artery stenosis ?I65.23 - Occlusion and stenosis of bilateral carotid arteries (ICD-10) Pneumonia ?J18.9 - Pneumonia, unspecified organism (ICD-10) Contusion of multiple sites ?T07.XXXA - Unspecified multiple injuries, initial encounter (ICD-10) History of hypertension ?Z86.79 - Personal history of other diseases of the circulatory system (ICD-10) History of throat cancer ?Z85.819 - Personal history of malignant neoplasm of unspecified site of lip, oral cavity, and pharynx (ICD-10) Hx of supraventricular tachycardia ?Z86.79 - Personal history of other diseases of the circulatory system (ICD-10) History of emphysema ?J43.9 - Emphysema, unspecified (ICD-10) History of arthritis ?Z87.39 - Personal history of other diseases of the musculoskeletal system and connective tissue (ICD-10) Hx of TIA (transient ischemic attack) and stroke ?Z86.73 - Personal history of transient ischemic attack (TIA), and cerebral infarction without residual deficits (ICD-10) History of COPD ?Z87.09 - Personal history of other diseases of the respiratory system (ICD-10) Surgical History Hx of cholecystectomy ?Z90.49 - Acquired absence of other specified parts of digestive tract (ICD-10) 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 - Acquired absence of spleen (ICD-10) Hx of hernia repair ?Z98.890 - Other specified postprocedural states (ICD-10) ?Z87.19 - Personal history of other diseases of the digestive system (ICD-10) Social History Within the past year, how often did you have a drink containing alcohol: 4 or more times a week Within the past year, how many standard drinks containing alcohol did you have on a typical day: 10 or more Within the past year, how often did you have six or more drinks on one occasion: daily or almost daily Total score: 12 Score interpretation: A score of 4 or more indicates drinking is likely to affect patient's safety. Smoking status: Heavy tobacco smoker Highest level of school completed/degree received: some college, no degree Do you want help with school or training: No Little interest or pleasure in doing things: not at all Feeling down, depressed, or hopeless: not at all Meds Home Medications and Allergies Home Medications ?Medication ?Instructions ?Recorded ?Confirmed ?Type omeprazole 40 mg capsule,delayed 40 mg PO DAILY 10/14/22 02/27/25 History release zolpidem 10 mg tablet 10 mg PO DAILY PRN insomnia 10/14/22 02/27/25 History aspirin 81 mg tablet,delayed 81 mg PO DAILY 07/23/24 02/27/25 History release (Adult Low Dose Aspirin) atorvastatin 20 mg tablet 20 mg PO DAILY 07/25/24 02/27/25 History topiramate 100 mg tablet (Topamax) 100 mg PO DAILY 07/25/24 02/27/25 History clopidogrel 75 mg tablet 75 mg PO QD #30 tabs 07/26/24 02/27/25 Rx fluticasone fur. 100 mcg-umeclid 1 inh inhalation DAILY 02/06/25 02/27/25 History 62.5 mcg-vilant 25 mcg inhalat.powder (Trelegy Ellipta) oxycodone-acetaminophen 5 mg-325 1 tab PO QID PRN pain 02/06/25 02/27/25 History mg tablet buprenorphine 10 mcg/hour weekly 1 patch transdermal Q7D 02/27/25 02/27/25 History transdermal patch (Butrans) buprenorphine 10 mcg/hour weekly 1 patch transdermal Q7D #4 ea 02/27/25 Rx transdermal patch (Butrans) pregabalin 50 mg capsule (Lyrica) 50 mg PO TID 02/27/25 02/27/25 History pregabalin 50 mg capsule (Lyrica) 50 mg PO TID #90 caps 02/27/25 Rx Allergies Allergy/AdvReac Type Severity Reaction Status Date / Time No Known Drug Allergies Allergy Verified 02/15/25 09:42 Exam Constitutional Documenting provider has reviewed patient's vital signs: yes Common normals: no apparent distress, oriented x3 and alert General appearance: cooperative Nutritional appearance: underweight HENMT Common normals: normocephalic, hearing grossly normal bilaterally and moist oral mucous membranes Head and scalp: normocephalic Eye Common normals: PERRL Pupil: PERRL Neck & C-Spine Common normals: full ROM General: normal visual inspection Chest Common normals: inspection of chest normal Respiratory Common normals: normal respiratory effort, no retractions and no use of accessory muscles Back & Pelvis Lumbar spine/lower back: pain with ROM and lumbar spinal tenderness Lumbar spinal tenderness location: L1, L2, L3, L4 and L5 Other: strength 4/5 in BLE sensation intact BLE Neuro Common normals: oriented x3 Sensorium/orientation: alert Gait (neuro): assistive device used (wheelchair) Psych Common normals: mental status grossly normal, thought process normal, cooperative, affect normal, speech normal and activity/motor behavior normal Speech: normal speech Thought process: normal thought process Results Additional Findings Additional findings: If on a controlled substance or opioids, I have checked an [place] report on this patient and there are no aberrancies noted in the prescribing history.??If on a controlled substance or opioid a drug screen was completed and reviewed within the last year, and if there has not been a drug screen completed we ordered one today to monitor higher risk, state monitored pain medication use. As part of providing excellent, safe, comprehensive care, the following was completed at our patient's visit: 1. A medication reconciliation and review to ensure accurate knowledge of current/active medications, including asking our patients to inform us about any obor-bem-nherysj medications or herbal remedies/nutritional supplements/alternative remedies. 2. A review to specifically ensure our patients have had annual screening for screening for depression, screening for tobacco use, and screening for unhealthy alcohol use. For concerning screenings had a discussion with the patient, provided patient education, and recommended follow-up with primary care provider when appropriate. If patient noted with a risk of falling, they received education on strength, gait, and balance training to prevent future risk of falling. Portions of this note may have been carried over from the previous visit and updated as appropriate. Please note this office utilizes paper charting in addition to the electronic medical record. A list of current medications, vitals, and PMH is available there as the clinical staff outside of myself do not have access to [facility] charting during the clinic day operations. As part of providing quality comprehensive care the current medications, vitals, and PMH were reviewed in the paper chart. Assessment and Plan Assessment and Plan (1) Polyneuropathy: (2) Chronic bilateral low back pain: (3) Lumbar spondylosis: Plan emg consistent with polyneuropathy defer lumbar TFESIs with lack of disc bulge and radicular pathology increase pregabalin 75mg TID, risks vs benefits reviewed consider scs trial in the future if needed f/u 1 month to evaluate medication changes
== END 2025-03-16 07:58 | disposition home or self-care (01) ==
LOC: PM 07:57
PROVIDERS: PCP Family Medicine; Visit Provider Nurse Practitioner
DX: G62.9 Polyneuropathy, unspecified (principal); M54.50 Low back pain, unspecified; M47.816 Spondylosis without myelopathy or radiculopathy, lumbar region
CPT/HCPCS: G0463

== ENCOUNTER 2025-04-13 08:37 | Outpatient (OUT) | payer OTHER, SELFPAY ==
--- OUTSIDE RECORDS SUMMARY | 2025-04-13 08:45 | XMS_ITS | CCD ---
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 Phys. EHR CmteOther lower respiratory disease (11 sources)Dyspnea; Translations: [Other respiratory abnormalities]Onset: 658609-15-7522QiihgjkoMcisj lower respiratory disease (4 sources)Dyspnea, unspecified; Translations: [Dyspnea, unspecified]Onset: 92-41-6144JxekdqsyDcrsb nervous system disorders (20 sources)Peripheral nerve disease ; Translations: [Polyneuropathy, unspecified]Onset: 302782-37-9776WbnmofpYhhfh nervous system disorders (4 sources)Pain due to neoplastic disease; Translations: [Neoplasm related pain (acute) (chronic)]ChronicOther nervous system disorders (20 sources)Peripheral neuropathy due to and following chemotherapy; Translations: [Drug-induced polyneuropathy]Onset: hronic Other non-traumatic joint disorders (20 sources)Derangement of right shoulder joint; Translations: [Other specific joint derangements of right shoulder, not elsewhere classified]Onset: 09-17-2022 95-94-0815SzvcpkzJxzsp non-traumatic joint disorders (4 sources)Joint pain; Translations: [...] pollen; Translations: [Allergic rhinitis due to pollen]Onset: 044268-65-4636IafasjqSzpmj upper respiratory infections (4 sources)Acute pharyngitis, unspecified; Translations: [ACUTE PHARYNGITIS UNSPECIFIED]Onset: 23-29-1327DnmmpjafLvabtvipghd and intestinal abscess (1 source)Peritoneal abscess; Translations: [Peritoneal abscess]Onset: 22-93-7450IvnfuxcgCfepysqr codes; unclassified (7 sources)Body mass index 20-24 - normal; Translations: [Body Mass Index between 19-24, adult]EpisodicResidual codes; unclassified (4 sources)Other specified postprocedural states; Translations: [OTH SPECIFIED POSTPROCEDURAL STATES]Onset: 76-85-8028GmiinphcXhabpzux codes; unclassified (10 sources)History of arthroscopic procedure on shoulder; Translations: [Other specified postprocedural states]68-40-7203FevkdgveJmmpwzgs codes; unclassified (3 sources)Pain; Translations: [Pain, unspecified]20-55-3407UbaoslseIqrxargkkou failure; insufficiency; arrest (adult) (20 sources)Chronic hypoxemic respiratory failure; Translations: [Chronic respiratory failure with hypoxia]Onset: 850388-29-5955OzszwtbUujxopdaroc failure; insufficiency; arrest (adult) (6 sources)Acute respiratory failure; Translations: [Acute respiratory failure with hypoxia]Onset: 089865-73-1994LtucltdmPtzelszdw and history of mental health and substance abuse codes (1 source)Ex-smoker; Translations: [Personal history of tobacco use]Episodic Comment on above:quit 05/22/22;Secondary malignancies (20 sources)Metastasis to head and neck lymph node; Translations: [Secondary and unspecified malignant neoplasmof lymph nodes of head, face and neck]Onset: 994608-15-3033IljxspyEumaufhemca; intervertebral disc disorders; other back problems (20 sources)Spondylosis without myelopathy or radiculopathy, lumbar region; Translations: [Thoracic spondylosis]Onset: 530793-39-7400Hvynpij Spondylosis; intervertebral disc disorders; other back problems (1 source)BackacheOnset: 11-86-8892OxtqdgybAkmgdnqan-related disorders (20 sources)Smoker; Translations: [Nicotine dependence, unspecified, uncomplicated]Onset: 565899-72-1346NpbdlmyNnsdbmg on above:1 pack of cigarettes every 4-5 days;Thyroid disorders (2 sources)Atrophy of thyroid - acquired; Translations: [Atrophy of thyroid (acquired)]Onset: 495658-79-8872VkjusbdeFodpeyvgh cerebral ischemia (15 sources)Transient cerebral ischemia; Translations: [Unspecified transient cerebral ischemia]Onset: 493187-36-2598CldzvrgUaolfypig cerebral ischemia (1 source)Transient cerebral ischemiaOnset: 45-51-2122Gplwkvwjfnld (1 source)Encounter for immunization / Z23(ICD-10)Onset: 77-64-6839Vxtquzfufggn (1 source)Nicotine dependence, unspecified, uncomplicated / F17.200(ICD-10) Onset: 85-02-2790Vbmfgskhmajk (1 source)Trochanteric bursitis, right hip / M70.61(ICD-10)Onset: 04-06-2017 Unclassified (1 source)CONTACT W/AND (SUSP) EXPOS COVID-19; Translations: [CONTACT W/AND (SUSP) EXPOS COVID-19]Onset: 64-06-4668Lnpogihyyktf (3 sources)LOW BACK PAIN, UNSPECIFIED; Translations: [LOW BACK PAIN, UNSPECIFIED]Onset: 57-90-0349Pcaxshtqtqgo (1 source)lower and middle back painOnset: 20-99-6425Bqizn infection (1 source)Viral infection, unspecified; Translations: [VIRAL INFECTION UNSPECIFIED]Onset: 23-64-1853Atgqjxpj Past or Other Problems Problem ClassificationProblemDateDocumented DateEpisodic/ChronicCancer of head and neck (10 sources)Personal history of malignant neoplasm of unspecified site of lip, oral cavity, and pharynx; Translations: [History of malignant neoplasm of head and/or neck]Onset: 09-02-2022 Resolved: 535447-79-1513JhtxgzxoCmokwbd dysrhythmias (20 sources)Tachycardia; Translations: [Tachycardia, unspecified]Onset: 224621-21-9942RxvbpxvtUqvzcsag mellitus without complication (20 sources)Prediabetes; Translations: [Prediabetes]Onset: EpisodicDiseases of mouth; excluding dental (20 sources)Mass of tongue; Translations: [Other diseases of tongue]Onset: 09-17-2022 Resolved: 269406-66-8443LjjezjejQafv effects of cerebrovascular disease (9 sources)Sequela of cerebrovascular accident; Translations: [Unspecified sequelae of cerebral infarction]Onset: 01-09-2025 Resolved: 755047-07-2987CbxydkrUlptlsc and fatigue (20 sources)Malaise and fatigue; Translations: [Other malaise]Onset: 08-09-2021 EpisodicMood disorders (20 sources)Mood disordersOnset: 11-27-2021 Resolved: Nausea and vomiting (20 sources)Nausea; Translations: [Nausea]Onset: 823620-95-1048Jxnpvoia Open wounds of extremities (2 sources)Impaired wound healing; Translations: [Unspecified open wound, left foot, initial encounter]Onset: 09-21-2019 Resolved: 072439-40-3387ScyqizyaRnwai aftercare (20 sources)Long-term current use of drug therapy; Translations: [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]Onset: 042172-96-0972AfzxmqjxCgflf aftercare (6 sources)Patient encounter status; Translations: [Other halfway (current) drug therapy]Onset: 718369-46-4465ZkkspnsuPzthn and ill-defined cerebrovascular disease (8 sources)Intracranial aneurysm; Translations: [Cerebral aneurysm, nonruptured] Onset: 01-09-2025 Resolved: 300515-40-3077HuxypojMrcag and ill-defined heart disease (9 sources)Left ventricular hypertrophy; Translations: [Cardiomegaly]Onset: 01-09-2025 Resolved: 978839-32-1404XevnwgrYoypd bone disease and musculoskeletal deformities (1 source)Other specified disorders of bone, shoulder; Translations: [OTHER SPEC DISORDERS BONE SHOULDER]Onset: 74-66-3546HikhbycdNxnck circulatory disease (20 sources)History of transient ischemic attack; Translations: [Personal history of transient ischemic attack (TIA), and cerebral infarction without residual deficits]Onset: 199477-23-8946MaykxonsLfhpu connective tissue disease (20 sources)Pain in left foot; Translations: [Pain in left foot]Onset: 695994-49-1594NhgxpnttDafyq ear and sense organ disorders (20 sources)Tinnitus; Translations: [Tinnitus, unspecified ear]Onset: 09-17-2022 60-97-1733DdyroiwjNodnd gastrointestinal disorders (20 sources)Dysphagia; Translations: [Dysphagia, unspecified]Onset: 06-25-2021 88-49-1573MfdzmutvVgicq injuries and conditions due to external causes (20 sources)Aspiration into respiratory tract; Translations: [Unspecified foreign body in respiratory tract, part unspecified causing other injury, initial encounter]Onset: 122327-48-9829UexeskokAyiud nervous system disorders (20 sources)Abnormal gait; Translations: [Unsteadiness on feet]Onset: 06-01-2024 36-49-1339ZtfexswiRhshg non-traumatic joint disorders (4 sources)Pain in right shoulder; Translations: [PAIN IN RIGHT SHOULDER]Onset: 46-63-5304ZllljuwgTtydg nutritional; endocrine; and metabolic disorders (3 sources)Body mass index less than 20; Translations: [Body mass index (BMI) 19.9 or less, adult]Onset: 366876-95-7590UhpyhaewKwnfh nutritional; endocrine; and metabolic disorders (2 sources)Body mass index (BMI) 19.9 or less, adult; Translations: [Body mass index (BMI) 19.9 or less, adult]Onset: 26-24-2612SkmumtfkMvlkw screening for suspected conditions (not mental disorders or infectious disease) (20 sources)Electrocardiogram abnormal; Translations: [Nonspecific abnormal electrocardiogram [ECG] [EKG]]Onset: 145473-13-8535JhhzgihkWjkza upper respiratory disease (20 sources)Other diseases of pharynx; Translations: [Unspecified disease of pharynx]Onset: 512868-58-3119LbtogcziVnqil upper respiratory disease (20 sources)Mass of neck; Translations: [Other diseases of larynx]Onset: 09-17-2022 Resolved: 474034-21-1953TqnhzjpbCxcctu media and related conditions (20 sources)Non-suppurative otitis media; Translations: [Unspecified nonsuppurative otitis media, unspecified ear]Onset: 09-17-2022 Resolved: 829519-01-2451GutznxxjJqjbitaose and visceral atherosclerosis (20 sources)Peripheral vascular disease; Translations: [Peripheral vascular disease, unspecified]Onset: 02-15-2021 Resolved: 559452-71-4303LtfgvauHxrrsrq on above:Status post left lower extremity stenting;Pneumonia (except that caused by tuberculosis or sexually transmitted disease) (20 sources)Pneumonia; Translations: [Pneumonia, unspecified organism]Onset: 09-08-2024 Resolved: 526361-56-4752SvpzzqbxSsajkqyx codes; unclassified (20 sources)Insomnia; Translations: [Insomnia, unspecified]Onset: 06-25-2021 97-49-7688IbwfadmkAfvlwmtx codes; unclassified (4 sources)Other general symptoms and signs; Translations: [OTHER GENERAL SYMPTOMS AND SIGNS]Onset: 02-44-8179MdbcncuiHcofqehh codes; unclassified (2 sources)Finding of systemic arterial pressure; Translations: [Other general symptoms and signs]Onset: 833080-06-6630EpqzcarjJwwinwzp codes; unclassified (2 sources)Pain, unspecified; Translations: [Pain, unspecified]Onset: 06-10-2024 EpisodicUnclassified (1 source)LOW BACK PAIN, UNSPECIFIED; Translations: [LOW BACK PAIN, UNSPECIFIED] Onset: 91-45-4107Bvzhnumuwqbn (1 source)Onset: Results Test NameValueInterpretationReference RangeFacilityCT ABD/PEL WO IVCONon 27-96-6616BN ABD/PEL WO IVCON* * *Final Report* * * DATE OF EXAM: Mar 14 2025 1:56PM [facility] 0531 - CT ABD/PEL WO [...] any questions regarding this interpretation, please call [phone]. If you are unable to reach us at the number above, please feel free to contact [facility] eRadiology at [phone]. [id number]_IDCSIACNNormalOhioHealth Berger Hospital CHEST WO IVCONon 79-22-7265BE CHEST WO IVCON* * *Final Report* * * DATE OF EXAM: Mar 14 2025 1:56PM [facility] 0541 - CT CHEST WO [...] be communicated with the ordering provider via [employer] staff message or phone message by Imaging Support Services within 2 business days of report finalization. --END OF FINDING-- Algorithms for management of incidental imaging findings can be found on the [facility] Intranet Sharepoint site at: [email or web address]%20Findi ngs%[email or web address].[email or web address] Transcribe Date/Time: Mar 15 2025 8:16A Dictated by: MARCIE LOMELI MD This examination was interpreted and the report reviewed and electronically signed by: MARCIE LOMELI MD on Mar 15 2025 8:25AM EST Thank you for allowing us to participate in the care of your patient. Should there be any questions regarding this interpretation, please call [phone]. If you are unable to reach us at the number above, please feel free to contact [facility] eRadiology at [phone]. [id number] ACTIONABLEInvalid Interpretation CodeOhioHealth Berger Hospital NECK SOFT TISSUE WO IVCONon 84-22-6443FN NECK SOFT TISSUE WO IVCON* * *Final Report* * * DATE OF EXAM: Mar 14 2025 1:56PM [facility] 0509 - CT NECK SOFT [...] any questions regarding this interpretation, please call [phone]. If you are unable to reach us at the number above, please feel free to contact [facility] eRadiology at [phone]. [id number]_IDCSIACNNormalRiverview Health Instituteon 30-77-6856LOGK Telephone (RADTSA) ALEJO FLOYD ([id number]) 1960 M Date Time Provider Department 03/07/25 [...] Diagnosis:Weight loss [R63.4] Order(s):NM PET/CT SKULL-THIGH SUBSEQUENT [0760624] Order #: [id number] FUTURE Prescriptions as of 03/07/2025 - clopidogrel [...] 09/16/2021 Encounter Status:Closed by [facility]RIN ARIAS [facility] 20-19-9661UIMUAvjjpvamv (RADTSA) ALEJO FLOYD ([id number]) 1960 M Date Time Provider Department 02/23/25 Kathrine CARPENTER During your visit today, we recorded the following information about you: Azar Martino RN 02/23/2025 11:32 AM Signed Faxed received today from [facility] noting Alejo is currently [...] 09/16/2021 Encounter Status:Closed by KATRIN ARIAS on 02/23/25[facility] 46-35-4260ICFNSqklrb Visit (RADTSA) ALEJO FLOYD ([id number]) 1960 M Date Time Provider Department 02/21/25 4:00 PM Kathrine CARPENTER During your visit today, we recorded the following information about you: Temperature Pulse Respiration Blood pressure 97.4 degrees 107/minute 16/minute 115/78 Weight 49.5 kg Kathrine Carpenter MD 02/21/2025 4:37 PM Signed Radiation Oncology - Follow Up Note DIAGNOSIS: Squamous cell carcinoma oropharynx, 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 Charles HospitalvelandBasophils Auto (Bld) [#/Vol]Ordered By: Jacqueline Jj on 51-77-1587Ezcdokrkv (Bld) [#/Vol]0.1 10 3/uL0.0-0.1FCleveland Clinic FoundationBasophils/100 WBC Auto (Bld)Ordered By: Jacqueline Jj on 00-98-0069Mggjbhlbd/100 WBC (Bld)0.7 %0.2-2.0[facility] CNPNon 43-29-4815UTGHXoqrctlox (RADTSA) ALEJO FLOYD ([id number]) 1960 M Date Time Provider Department 02/15/25 Kathrine CARPENTER During your visit today, we recorded the following information about you: Azar Martino RN 02/15/2025 1:23 PM Signed PSS: Dr. Carpenter received a call from [facility] today and would like Alejo scheduled for a follow up here next week. Cris: Will you please print ER records from [facility]? Thanks SCOTT Bolton Trisha 02/15/2025 3:24 PM [...] 09/16/2021 Encounter Status:Closed by AZAR MARTINO on 02/15/25NoMiddletown HospitalEosinophils/100 WBC Auto (Bld)Ordered By: Jacqueline Jj on 02-15-2025 Eosinophils/100 WBC (Bld)1.2 %0.9-7.0[facility] Erythrocyte distribution width Auto (RBC) [Ratio]Ordered By: Jacqueline Jj on 91-19-6988Fhnshhwbzol distribution width (RBC) [Ratio]14.0 %11.0-15.0[facility] Hospital - Southeast OhioGlobulin Calc (S) [Mass/Vol]Ordered By: Jacqueline Jj on 48-34-2891Elsqdlxi (S) [Mass/Vol]3.7 g/dLSelect Medical Specialty Hospital - [facility] [place] Glomerular filtration rate (GFR) estimation in non- AmericanOrdered By: Jacqueline Jj on 32-66-7251TJC/1.73 sq M.predicted among non-blacks MDRD (S/P/Bld) [Vol rate/Area]mL/min/{1.73_m2}>=60 mL/min/1.73m [address] [place], [place] [address]Hematocrit Auto (Bld) [Volume fraction]Ordered By: Jacqueline Jj on 50-15-1116Kaqnwchtah (Bld) [Volume fraction]39.0 %Low42.0-54.0[facility] OhioHemoglobin [Mass/volume] in BloodOrdered By: Jacqueline Jj on 90-27-5127Atwucgpcva (Bld) [Mass/Vol]13.3 g/dLLow14.0-18.0[facility] OhioLaboratory - Chemistry and Chemistry - challengeOrdered By: Jacqueline Jj on 40-48-0643Chbiiod [Mass/Vol]3.8 g/dL3.4-5.0[facility] OhioALP [Catalytic activity/Vol]77 U/N63-657YshxasmeuSelect Medical Specialty Hospital [facility] [place] ALT [Catalytic activity/Vol]24 U/B00-83VwoethlvbSelect Medical Specialty Hospital - Southeast OhioAST [Catalytic activity/Vol]21 U/E95-94GyjlfxbmvSelect Medical Specialty Hospital - Southeast OhioBilirubin [Mass/Vol]1.1 mg/dLHigh0.2-1.0[facility] OhioCalcium [Mass/Vol]9.1 mg/dL8.5-10.1FCleveland Clinic FoundationChloride [Moles/Vol] 104 mmol/A18-372FrmodvjqnSelect Medical Specialty Hospital - Southeast OhioCO2 [Moles/Vol]24.2 mmol/L 21.0-32.0[facility] OhioCreatinine [Mass/Vol]0.96 mg/dL 0.70-1.30[facility] OhioGFR/1.73 sq M.predicted MDRD (S/P/Bld) [Vol rate/Area]mL/min/{1.73_m2}>=60 mL/min/1.73m 2FCleveland Clinic FoundationGlucose [Mass/Vol]86 mg/pH73-093WzzlhhfdmSelect Medical Specialty Hospital - Southeast OhioLactate [Moles/Vol]1.1 mmol/L0.4-2.0[facility] OhioPotassium [Moles/Vol]3.1 mmol/LLow3.5-5.1FCleveland Clinic FoundationProtein [Mass/Vol]7.5 g/dL6.4-8.2FPremier Health Miami Valley Hospitalodium [Moles/Vol]143 mmol/S571-194LlftauqelSelect Medical Specialty Hospital - Southeast OhioUrea nitrogen [Mass/Vol]24.0 mg/dL High7.0-18.0[facility] OhioUrea nitrogen/Creatinine [Mass ratio]25.0 mg/mgSelect Medical Specialty Hospital - Southeast OhioLaboratory - Hematology and Cell countsOrdered By: Jacqueline Jj on 29-08-1125Obbtzpub granulocytes/100 WBC (Bld)0.4 %0.0-0.5FCleveland Clinic FoundationLeukocytes [#/volume] corrected for nucleated erythrocytes in Blood by Automated counOrdered By: Jacqueline Jj on 27-83-2689STU corrected for nucl RBC Auto (Bld) [#/Vol]7.5 10 3/uL4.0-11.0[facility] Southeast OhioLymphocytes Auto (Bld) [#/Vol] Ordered By: Jacqueline Jj on 92-34-4326Jclbawvtwns (Bld) [#/Vol]1.1 10 3/uLLow 1.2-3.8[facility] Hospital [facility] Southeast OhioLymphocytes/100 WBC Auto (Bld)Ordered By: Jacqueline Jj on 53-17-2304Gyggkidiaea/100 WBC (Bld)14.1 %Low20.5-60.0 Barnesville HospitalH Auto (RBC) [Entitic mass]Ordered By: Jacqueline Jj on 84-22-6877JGT (RBC) [Entitic mass]33.6 pg25.9-34.0[facility] OhioMCHC Auto (RBC) [Mass/Vol]Ordered By: Jacqueline Jj on 02-15-2025 MCHC (RBC) [Mass/Vol]34.1 g/dL29.9-35.2FCleveland Clinic FoundationMCV Auto (RBC) [Entitic vol]Ordered By: Jacqueline Jj on 55-35-6607XCY (RBC) [Entitic vol] 98.5 lBQxuo81.0-94.0[facility] Southeast OhioMonocytes Auto (Bld) [#/Vol]Ordered By: Jacqueline Jj on 38-45-8557Wqvahusvf (Bld) [#/Vol]0.6 10 3/uL 0.3-0.8[facility] Southeast OhioMonocytes/100 WBC Auto (Bld)Ordered By: Jacqueline Jj on 92-28-6464Pfjvlrytm/100 WBC (Bld)7.7 %1.7-12.0[facility] Southeast OhioNeutrophils Auto (Bld) [#/Vol]Ordered By: Jacqueline Jj on 89-88-8689Npvspvlfbsh (Bld) [#/Vol]5.7 10 3/uL1.4-6.5FCleveland Clinic FoundationNeutrophils/100 WBC Auto (Bld)Ordered By: Jacqueline Jj on 02-15-2025 Neutrophils/100 WBC (Bld)75.9 %High43.0-75.0[facility] OhioNo Panel InformationOrdered By: Jacqueline Jj on 52-12-8553Hobaraig I High Sensitivity8.9 pg/mL4.0-76.1FCleveland Clinic FoundationComment on above: CUT-OFF POINTS HAVE BEEN ESTABLISHED [...] DIAGNOSTIC AND CLINICAL INFORMATION.Eosinophils # (Auto)0.1 10 3/uL0.0-0.7FCleveland Clinic FoundationImmature Granulocyte # (Auto)0.03 10 3/uL0.00-0.03[facility] Hospital - Southeast OhioPlatelet mean volume Auto (Bld) [Entitic vol]Ordered By: Jacqueline Jj on 21-22-4236Kdgjwogu mean volume (Bld) [Entitic vol]9.5 fL9.5-13.5 [facility] Southeast OhioPlatelets Auto (Bld) [#/Vol]Ordered By: Jacqueline Jj on 26-18-3407Czpjlxdag (Bld) [#/Vol]304 10 3/oV717-891XqnbqbnilSelect Medical Specialty Hospital - Southeast OhioRBC Auto (Bld) [#/Vol]Ordered By: Jacqueline Jj on 43-01-2331IWS (Bld) [#/Vol]3.96 10 6/uLLow4.70-6.10Holzer Health Systemerum or plasma albumin/globulin mass ratioOrdered By: Jacqueline Jj on 02-15-2025 Albumin/Globulin [Mass ratio]1.0 {ratio}Holzer Health Systemerum or plasma anion gap determinationOrdered By: Jacqueline Jj on 93-68-0130Qtfkz gap [Moles/Vol]17.9 mmol/LFCleveland Clinic FoundationCCF TSH W/REFLEX FT4on 87-52-3878SQY TSH SERPL-ACNC2.12NOMO HealthcareSpecimen Type: BLOOD SPECIMEN Ordering Facility: [facility] Address: [address] [place] [address] [place] [address] Original Ordering Provider: Kathrine Jose Panel Informationon 06-33-2421LZEKKindred Hospital W/REFLEX FT4on 55-93-3126Qvzzaobtdikhxz and review of laboratory resultsNormalCLancaster Municipal Hospital Qn2.120 m[IU]/[facility] CNOVon 95-23-6457NODQOtfizb Visit (RADTSA) ALEJO FLOYD ([id number]) 1960 M Date Time Provider Department 12/20/24 1:15 PM Kathrine CARPENTER During your visit today, we recorded the following information about you: Temperature Pulse Respiration Blood pressure 98.9 degrees 83/minute 20/minute 151/70 Weight 60.5 kg Kathrine Carpenter MD 12/27/2024 10:45 AM Signed Radiation Oncology - Follow Up Note DIAGNOSIS: Squamous cell carcinoma oropharynx, 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, V7Oa1X3 RADIATION SUMMARY: Course 1: DATES OF TREATMENT: [...] Bimanual exam without p (more content not included)...NormalFulton County Health CenterTS W/REFLEX FT4on 78-12-1036XCA Qn2.120 m[IU]/LNormal0.270-4.200Fulton County Health CenterComment on above:Order Comment: Specimen Type: BLOOD SPECIMENOrdering Facility: [facility] Address:[address] [place], [place] [address]Performed By: #### TSHRF ####[facility] SHARON [id number] NICKI JOLLY [id number] [place] [id number] [place] Office Visiton 18-07-2709Vczmpi-up [id number] Alejo Floyd 1960 M Date Provider Department Center 12/08/2024 16959-TPDDROSAURA SESAY HVCVASENDO [place] Heart[facility] No family history on file Level of Service:[address]358 [place] OFFICE/OUTPATIENT ESTABLISHED HIGH MDM 40 MIN Reason for Visit and Comments: Post-op [483] - Left neck painNormalUniversSycamore Medical CenterOrders Onlyon 27-55-2898Fpfwua [id number] Alejo Floyd 1960 Provider Department Center 11/21/2024 Deven-GILDARDO JONES [facility] PREOP [place] [facility] No family history on fileNoHarrison Community HospitalHPon 35-36-1816DWK&P reviewed. The patient was examined and there are no changes to the H&P.Clermont County HospitalNURSNOTEon 70-06-5994APKEZTFJOS educated pt on d/c instructions. This included: [...] wheeled off of unit with all of belongings.Clerm[facility] County HospitalOrders Onlyon 81-24-7954Tappbv [id number] Alejo Floyd 1960 M Date Provider Department Center 11/16/2024 43624-JKWEZNIRMAL PURI [facility] PAC [place] [facility] No family history on formerly [facility] countyNormalUniUC [facility]29on 39-45-509600Qsihiyak by: MARINA PRICE on: 11/17/2024 03:48 PM Modules accepted: OrdersNormalUniversSycamore Medical CenterAPTTon 35-27-1261XPGLQQXFO PARTIAL THROMBOPLASTIN TIME IN PPP BY COAGULATION ASSAY30.4 EaomixbRhiojb58.0-35.0UnCleveland Clinic Mentor HospitalComment on above:Result Comment: Clinical significance of the APTT is questionable in the presence of heparin.Performed By: #### [id number] #### [facility] ([facility]) [address] [place] [address]DORMP METABOLIC PANELon 38-50-4865Wozlm gap [Moles/Vol]11 mmol/L Normal7-20UnCleveland Clinic Mentor HospitalComment on above:Performed By: #### [id number] #### [facility] ([facility]) [address] [place] [address]Hbpeytk [Mass/Vol]9.4 mg/dLNormal8.6-10.3UnCleveland Clinic Mentor HospitalComment on above:Performed By: #### [id number] #### [facility] ([facility]) [address] [place] [address]Plzyxjli [Moles/Vol]97 mmol/BJtp54-207GztqhkgjhoCleveland Clinic Mentor HospitalComment on above:Performed By: #### [id number] #### [facility] ([facility]) [address] [place] [address]CR3 [Moles/Vol]29 mmol/LMvrrfg03-45FvuajbrqnjCleveland Clinic Mentor HospitalComment on above:Performed By: #### [id number] #### [facility] ([facility]) [address] [place] [address]Iikxewiqky [Mass/Vol]0.81 mg/dLNormal0.70-1.30UnCleveland Clinic Mentor HospitalComment on above:Performed By: #### [id number] #### [facility] ([facility]) [address] [place] [address]WIDVSXWJYB FILTRATION RATE ML/MIN/1.73 SQ M.ASUOSXYSV21.5 mL/min/1.73m*2Normal>60.0UnCleveland Clinic Mentor HospitalComment on above: Result Comment: [facility]???s estimated glomerular filtration rate (eGFR) will no [...] of individuals.Performed By: #### [id number] #### [facility] ([facility]) [address] [place], [place] [address]Jeczkpk [Mass/Vol]91 mg/jCPugkix24-064ZzxgzheqqxCleveland Clinic Mentor HospitalComment on above:Performed By: #### [id number] #### [facility] ([facility]) [address] [place], [place] [address]Pregosnhk [Moles/Vol]4.3 mmol/LNormal3.5-5.1UnCleveland Clinic Mentor HospitalComment on above:Performed By: #### [id number] #### [facility] ([facility]) [address] [place], [place] [address]Quaqgs [Moles/Vol]133 mmol/ARgf273-467BikwzcvvghCleveland Clinic Mentor HospitalComment on above:Performed By: #### [id number] #### [facility] ([facility]) [address] [place], [place] [address]Dbar nitrogen [Mass/Vol]16 mg/dLNormal7-25UnCleveland Clinic Mentor HospitalComment on above:Performed By: #### [id number] #### [facility] ([facility]) [address] [place], [place] [address]RCYV NITROGEN/CREATININE (MASS RATIO) IN SER/PLAS19.8Normal [facility]HealthComment on above:Performed By: #### [id number] #### [facility] ([facility]) [address] [place], [place] [address]EJBub 48-25-3183Odktwiokzyy distribution width (RBC) [Ratio]13.6 %Vogowm38.5-15.0UnCleveland Clinic Mentor HospitalComment on above:Performed By: #### [id number] ####[facility] ([facility])[address] [address] ERYTHROCYTE MEAN CORPUSCULAR HEMOGLOBIN CONCENTRATION (G/DL) BY IDAPFZRJK30.0 g/dPUiirpb39.0-35.0UnCleveland Clinic Mentor HospitalComment on above:Performed By: #### [id number] ####[facility] ([facility])[address] [place] [address]Kzmqnnkoqc (Bld) [Volume fraction]40.6 %Fkbjjb38.0-50.0UnCleveland Clinic Mentor HospitalComment on above:Performed By: #### [id number] ####[facility] ([facility])[address] [place] [address]Qbbohxbluy (Bld) [Mass/Vol]13.4 g/dL Ascxqv95.0-17.0UnCleveland Clinic Mentor HospitalComment on above:Performed By: #### [id number] ####[facility] ([facility])[address] [place] [address]PNH (RBC) [Entitic mass]33.3 rfPyom05.0-33.0UnCleveland Clinic Mentor Hospital Comment on above:Performed By: #### [id number] ####[facility] ([facility])[address] [place] [address]AZU (RBC) [Entitic vol]100.7 qXEjvs59.0-98.0 [facility]HealthComment on above:Performed By: #### [id number] ####[facility] [place] [address]GORUAIALE (10*3/UL) IN BLOOD AUTOMATED VEETT900 10*3/pIGquhie051-682PlxcoxzuobCleveland Clinic Mentor HospitalComment on above:Performed By: #### [id number] ####[facility] ([facility] [place] [address]XRN (Bld) [#/Vol]4.03 10*6/uLLow 4.20-5.70UnSelect Medical Specialty Hospital - Akrono Medical CenterComment on above:Performed By: #### [id number] ####[facility] ([facility])[address] [place] [address]STQ (Bld) [#/Vol]5.77 10*3/uLNormal4.00-10.60UnCleveland Clinic Mentor HospitalComment on above:Performed By: #### [id number] ####[facility] ([facility])[address] [place] [address]AMls 89-70-7618ATPqe-Anesthesia Clinic Service Date: 11/15/24 Chief Complaint: Patient [...] shortness of breath at rest. ECHO at [place] in July 2024 revealed EF 50-55%, no [...] reviewed, no acute findings. Patient follows with [facility] Cardiology. Clearance request faxed to office per Dr. Mcfarland's office on 11/11/24. Preoperative labs remains outstanding, patient to complete today after visit. Subjective Allergies[1] Medication Documentation Review Audit Reviewed by Shere Pietraszak, RN (Registered Nurse) on 11/15/24 at 1420 Medication Order Taking? Sig Documenting Provider Last Dose Status albuterol 2.5 mg /3 mL (0.083 %) nebulizer solution [id number] Yes Take 2.5 mg by nebulization every 6 (six) hours if needed for wheezing. Aparna Andersen MD 11/15/2024 Active albuterol 90 mcg/actuation inhaler [id number] Yes Inhale 2 puffs every 6 (six) hours if needed for wheezing. Aparna Andersen MD 11/15/2024 Active aspirin 81 mg EC tablet [id number] Yes Take 81 mg by mouth in the morning. Aparna Andersen MD 11/15/2024 Active atorvastatin (Lipitor) 20 mg tablet [id number] Yes Take 20 mg by mouth in the morning. Aparna Andersen MD 11/15/2024 Active buPROPion XL (Wellbutrin XL) 150 mg 24 hr tablet [id number] Take 150 mg by mouth in the morning. Do not crush, chew, or split. Aparna ProviderMD Flag for Review clopidogrel (Plavix) 75 mg tablet [id number] Yes Take 75 mg by mouth in the morning. Aparna Andersen MD 11/15/2024 Active fluticasone furoate-vilanteroL (Breo Ellipta) 100-25 mcg/dose inhaler [id number] Yes Inhale 1 puff in the morning. Aparna Andersen MD 11/15/2024 Active megestrol (Megace) 400 mg/10 mL (40 mg/mL) suspension [id number] Yes Take 20 mL by mouth in the morning. Shake well just before you measure a dose. Measure with a special dose-measuring spoon or medicine cup, not with a regular table spoon. If you do not have a dose-measuring device, ask your pharmacist for one. Aparna Andersen MD 11/15/2024 Active metoprolol succinate XL (Toprol-XL) 25 mg 24 hr tablet [id number] Yes Take 50 mg by mouth in the morning. Do not crush or chew. Aparna Andersen MD 11/15/2024 Active omeprazole (PriLOSEC) [address] capsule [id number] Yes Take 40 mg by mouth before breakfast. Do not crush or chew. Aparna Andersen MD 11/15/2024 Active oxyCODONE-acetaminophen (Percocet) 10-325 mg tablet [id number] Yes Take 1 tablet by mouth every 6 (six) hours if needed for severe pain (8-10 pain score). Historical ProviderMD 11/15/2024 Active potassium chloride CR (Klor-Con M10) 10 mEq ER tablet [id number] Yes Take 10 mEq by mouth in the morning. Do not crush or chew. Historical Provider, 11/15/2024 Active topiramate (Topamax) 100 mg tablet [id number] Yes Take 100 mg by mouth two times daily. Historical Provider, 11/15/2024 Active Immunization History Administered Date(s) Administered Covid ([place]ar[place]) Bivalent Booster =>12 YRS 06/12/2022 Pfizer Covid-19 [...] Sexual activity: Not o (more content not included)...NormalUnCleveland Clinic Mentor HospitalLabon [id number] Alejo Floyd 1960 M Date Provider Department Center 11/15/2024 2244[facility] LAB RESOURCE MP DRAW Medical Pavi No family history on fileNormalUniversSycamore Medical CenterMRSA/MSSA DNA NASALon 90-91-2572ZZXK DNANegativeNormalNegativeUnCleveland Clinic Mentor HospitalComment on above:Order Comment: Testing methodology is [...] does not preclude nasal colonization.Performed By: #### [id number] ####[facility] ([facility])[address] [place], [place] [address]TGNK DNANegativeNormalNegative TriHealthComment on above:Order Comment: Testing methodology is an [...] does not preclude nasal colonization.Performed By: #### [id number] ####[facility] ([facility])[address] [place], [place] [address]EWBZUIX-BLCoi 09-80-8915BJX IN PPP BY COAGULATION ASSAY1.96Vuwb5.90-1.10UnCleveland Clinic Mentor HospitalComment on above:Result Comment: ACCCP RECOMMENDED INR [...] OPTIMAL THERAPEUTIC RANGE. CHEST 1995;108:231S-246S.Performed By: #### [id number] #### [facility] ([facility]) [address] [place], [place] [address]NNHPTTHQMNF TIME (PT) IN PPP BY COAGULATION ASSAY14.4 Seconds Gxuahb62.3-14.8UnCleveland Clinic Mentor HospitalComment on above:Performed By: #### [id number] #### [facility] ([facility]) [address] [place] [place], [place] [address]Fuy-Stxiqmnxh Testingon 49-88-1774Hzm-Admission [id number] Alejo Floyd 1960 M Date Provider Department Center 11/15/202429435-PQX-IJCOJGNFXL CLINI*[facility] [place] [facility] No family history on fileNormalUniversity of Memorial Hermann The Woodlands Medical CenterFollow-Upon 07-48-6545Cawhlb-[id number] Alejo Floyd 1960 M Date Provider Department Center 10/31/2024 [address] HVCVASENDO [place] [facility] No family history on file Level of Service:[address] [place] OFFICE/OUTPATIENT ESTABLISHED MOD MDM 30 MIN Reason for Visit and Comments: Follow-up [254330] - Left side neck has crampsNormalUniverssumma health akron campus of [facility] Woodlands Medical CenterHPon 55-03-2754ZQWCPZVXNNIC OF VASCULAR SURGERY HPI Alejo Floyd is a 64 y.o. male who presents today for follow-up evaluation for carotid stenosis and PAD. With respect to carotid disease patient does report that in May and then again in July this past year he developed sudden onset left-sided leg weakness and was seen at [facility]. He reports he was diagnosed with a TIA both times. I obtained records from [place] and appears he was diagnosed with a [...] CTA and MRI from July 2024 at [place]. Patient has over 50-69% stenosis which has been consistent with 2 different ultrasounds with MRI evidence of subacute stroke on the right via MRI. Reviewed case with Dr. Mcfarland, at this time we will proceed with transfemoral carotid/cerebral angiogram with carotid stenting (with distal embolic protection). Given his hostile neck transfemoral approach most appropriate. Echo done at [place] in July EF 50-55% no significant valvular disease His PAD is stable. He has known LLE moderate occlusive disease but is free of symptoms. Will continue medical management GDMT: DAPT, statin If recurrent left-sided symptoms occur patient advised to present to the ED immediately Electronically signed by: Vale Chirinos PA-C Physician Waste Treatment Operator Vascular and Wound Surgery 10/31/2024 This note was created with the assistance of a speech-recognition program. While intending to generate a document that accurately reflects the content of the encounter, no guarantee can be provided that every mistake has been identified and corrected by editing [1] No past medical his (more content not included)...NormalTriHealthCNOVon 20-58-9977WDKMWutnxn Visit (RADTSA) ALEJO FLOYD ([id number]) 1960 M Date Time Provider Department 06/21/24 1:30 PM Kathrine CARPENTER During your visit today, we recorded the following information about you: Temperature Pulse Respiration Blood pressure 97.9 degrees 95/minute 18/minute 110/58 Weight 59.4 kg Kathrine Carpenter MD 06/29/2024 12:44 PM Signed Radiation Oncology - Follow Up Note DIAGNOSIS: Squamous cell carcinoma oropharynx, 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 Lymph Node (more content not included)...NormalBrecksville VA [facility] 78-48-9198ZDDWYmigbv Visit (ORHSMN) ALEJO FLOYD ([id number]) 1960 M Date Time Provider Department 06/10/24 1:30 PM HEBERT MIGUEL [facility] During your visit today, we recorded the following information about you: Weight Height 63.5 kg 1.778 m Hebert Miguel MD 06/10/2024 5:06 PM Signed SHOULDER/ELBOW INITIAL CONSULT SERVICE DATE: 06/09/2024 PCP: Gildardo Lacy MD REFERRING PROVIDER: EMILIE Spicer [address] [place] [address] Consult requested for an opinion regarding the evaluation and treatment of the above. My final impression and recommendations will be communicated back to the requesting physician by way of the shared medical record or letter via US mail. CHIEF COMPLAINT: Right shoulder pain SUBJECTIVE HISTORY OF PRESENT ILLNESS: 63 year old male, who presents for the above CC. Patient is a gdnxw-zlnq-gqtavqbf 63-year-old male with past medical history of [...] without relief. Has been taking Tylenol and vaoj-jsz-cgzteah medications. Pain is improved when he is [...] solution 2.5 mg. albuterol (more content not included)...NormalFulton County Health CenterCT Shoulder - right WO contraston 06-10-2024* * [...] are maintained. IMPRESSION: No acute bony abnormality. Business Administration Program Chair: EDGAR Transcribe Date/Time: Jun 10 2024 5:13P Dictated by : GERMAN VALDEZ MD This examination was interpreted and the report reviewed and electronically signed by: GERMAN VALDEZ MD on Jun 10 2024 5:13PM EST [id number]^AGFA_IDC^SI^ACNCCFRadiology, MD [place] - 06/10/2024 * * *Final [...] are maintained. IMPRESSION: No acute bony abnormality. Business Administration Program Chair: PANOSOL Transcribe Date/Time: Jun 10 2024 5:13P Dictated by : GERMAN VALDEZ MD This examination was interpreted and the report reviewed and electronically signed by: GERMAN VALDEZ MD on Jun 10 2024 5:13PM EST [id number]^AGFA_IDC^SI^ACN [facility] HealthcareRadiology Study observation (narrative)[facility] HospitalNo Panel InformationOrdered By: Radiologist Radiology on 37-60-1568CDNE [employer] Work Phone: XR SHLDR >/=3V AP/DEVON AP/OTHR RTon 66-26-6578ZI SHLDR >/=3V AP/DEVON AP/OTHR RT* * *Final [...] are maintained. IMPRESSION: No acute bony abnormality. Business Administration Program Chair: PANOSOL Transcribe Date/Time: Jun 10 2024 5:13P Dictated by : GERMAN VALDEZ MD This examination was interpreted and the report reviewed and electronically signed by: GERMAN VALDEZ MD on Jun 10 2024 5:13PM EST [id number]_IDCSIACNNormalFulton County Health CenterXR Shoulder - right 3 Viewson 51-76-5074UHOVUDXMEM: No acute bony abnormality. Business Administration Program Chair: [facility] COUNTY HOSPITALJuan Luis Transcribe Date/Time: Jun 10 [...] Joint spaces are maintained. DIVISION OF RADIOLOGYProvider, [facility] [place] - 06/10/2024 * * *Final Report* * [...] maintained. IMPRESSION IMPRESSION: No acute bony abnormality. Business Administration Program Chair: [facility] Transcribe Date/Time: Jun 10 2024 5:13P Dictated by : GERMAN VALDEZ MD This examination was interpreted and the report reviewed and electronically signed by: GERMAN VALDEZ MD on Jun 10 2024 5:13PM EST [facility] CenterRadiology Study observation (narrative)[facility] Shoulder - right WO contraston 55-59-8361Z[address] [address] Magnetic Resonance Report Signed Patient: ALEJO FLOYD MR#: [id number] : 1960 Acct:[id number] Age/Sex: 63 / M ADM Date: 05/20/24 Loc: MRI Attending Dr: Cassie PHAN Ordering Physician: Cassie Hood Date of Service: 05/20/24 Procedure(s): MR shoulder RT wo con Accession Number(s): [id number] cc: Cassie Hood; Gildardo Lacy M.D. [address] [place] [id number] Patient Name: ALEJO FLOYD MRN: [id number] date: 1960 Sex: M Assigned Patient Location: MRI Current Patient Location: MRI Accession/Order Number: [id number] Exam Date: 05/20/2024 09:45 Report Date: 05/20/2024 [...] By: Papito Lucero M.D. Signed By: 05/20/24 1505 DD/ 1459 TD/TT: Business Administration Program Chair:TBHRadiology, Radiologist, - 05/20/2024 [place] [address] Magnetic Resonance Report Signed Patient: ALEJO FLOYD MR#: [id number] : 1960 Acct:[id number] Age/Sex: 63 / M ADM Date: 05/20/24 Loc: MRI Attending Dr: Cassie PHAN Ordering Physician: Cassie Hood Date of Service: 05/20/24 Procedure(s): MR shoulder RT wo con Accession Number(s): [id number] cc: Cassie Hood; Gildardo Lacy M.D. [facility] [place] [id number] Patient Name: ALEJO FLOYD MRN: [id number] date: 1960 Sex: M Assigned Patient Location: MRI Current Patient Location: MRI Accession/Order Number: [id number] Exam Date: 05/20/2024 09:45 Report Date: 05/20/2024 [...] By: Papito Lucero M.D. Signed By: 05/20/24 1503 DD/ 1459 TD/TT: Business Administration Program Chair: SANJUANA HealthcareRadiology Study observation (narrative)[facility] Shoulder - right WO contrastOrdered By: Radiologist Radiology on 97-53-1159SKVJ [employer] Work Phone: XR FOOT LT 2 VWSon 84-26-6231Xgt[address] [address] XRay Report Signed Patient: ALEJO FLOYD MR#: [id number] : 1960 Acct:[id number] Age/Sex: 63 / M ADM Date: 04/25/24 Loc: RAD Attending Dr: Gildardo Lacy M.D. Ordering Physician: Gildardo Lacy M.D. Date of Service: 04/25/24 Procedure(s): XR foot LT 2V Accession Number(s): [id number] cc: Gildardo Lacy M.D. [address] [address] Patient Name: ALEJO FLOYD MRN: [id number] date: 1960 Sex: M Assigned Patient Location: [facility] Current Patient Location: Accession/Order Number: [id number] Exam Date: 04/25/2024 12:15 Report Date: 04/28/2024 [...] M.D. Signed By: 04/28/24753 DD/ 0 TD/TT: Business Administration Program Chair:TBHRadiology, Radiologist, MD - 04/28/2024 [place] [address] XRay Report Signed Patient: ALEJO FLOYD MR#: [id number] : 1960 Acct:[id number] Age/Sex: 63 / M ADM Date: 04/25/24 Loc: [facility] Attending Dr: Gildardo Lacy M.D. Ordering Physician: Gildardo Lacy M.D. Date of Service: 04/25/24 Procedure(s): XR foot LT 2V Accession Number(s): [id number] cc: Gildardo Lacy M.D. [facility] [place] [address] Patient Name: ALEJO FLOYD MRN: [id number] date: 1960 Sex: M Assigned Patient Location: [facility] Current Patient Location: Accession/Order Number: [id number] Exam Date: 04/25/2024 12:15 Report Date: 04/28/2024 [...] M.D. Signed By: 04/28/24753 DD/ 0 TD/TT: Business Administration Program Chair: SANJUANA HealthcareRadiology Study observation (narrative)[facility] HealthcareXR FOOT LT 2 VWSOrdered By: Radiologist Radiology on 62-53-5012PYAM Healthcare Work Phone: ecg 12-LEADon 65-95-1582[place]fB[place] [address] Electrocardiograph Report Signed Patient: ALEJO FLOYD MR#: [id number] : 1960 Acct:[id number] Age/Sex: 63 / M ADM Date: 02/04/24 Loc: CARD Attending Dr: Cassie PHAN Ordering Physician: Cassie Hood Date of Service: 02/04/24 Procedure(s): ECG 12 lead Accession Number(s): [id number] cc: [facility] Test Date: 2024-02-04 Pat Name: ALEJO FLOYD Department: Room: - Gender: Male Customer Acquisition Specialist: : 1960 Requested By: 0953 Order Number: [id number] Reading MD: ELIZABETH GALINDO Measurements Intervals Rogers Rate: 93 P: 75 KS: 130 QRS: 77 QRSD: 94 T: 80 QT: 350 QTc: 436 Interpretive Statements SINUS RHYTHM WITH SINUS ARRHYTHMIA Compared to ECG 09/30/2023 12:53:19 Sinus tachycardia no longer present Electronically Signed On 02-04-2024 19:51:43 EDT by ELIZABETH GALINDO Dictated By: Elizabeth Galindo D.O. Signed By: 02/04/24195002/04/241950 DD/ 1235 TD/TT: Business Administration Program Chair:ROSYadiologMadison klein, - 02/04/2024 [place] [address] Electrocardiograph Report Signed Patient: ALEJO FLOYD MR#: [id number] : 1960 Acct:[id number] Age/Sex: 63 / M ADM Date: 02/04/24 Loc: CARD Attending Dr: Cassie PHAN Ordering Physician: Cassie Hood Date of Service: 02/04/24 Procedure(s): ECG 12 lead Accession Number(s): [id number] cc: [facility] Test Date: 2024-02-04 Pat Name: ALEJO FLOYD Department: Room: - Gender: Male Customer Acquisition Specialist: : 1960 Requested By: 0953 Order Number: [id number] Reading MD: ELIZABETH GALINDO Measurements Intervals Rogers Rate: 93 P: 75 KS: 130 QRS: 77 QRSD: 94 T: 80 QT: 350 QTc: 436 Interpretive Statements SINUS RHYTHM WITH SINUS ARRHYTHMIA Compared to ECG 09/30/2023 12:53:19 Sinus tachycardia no longer present Electronically Signed On 02-04-2024 19:51:43 EDT by ELIZABETH GALINDO Dictated By: Elizabeth Galindo D.O. Signed By: 02/04/24195002/04/241950 DD/ 1235 TD/TT: Business Administration Program Chair: SANJUANA HealthcareRadiology Study observation (narrative)SANJUANA HealthcareECG 12-LEAD Ordered By: Radiologist Radiology on 35-08-4589NTVI Healthcare Work Phone: mr Shoulder - right WO contraston 85-80-5557[place] [address] Magnetic Resonance Report Signed Patient: ALEJO FLOYD MR#: [id number] : 1960 Acct:[id number] Age/Sex: 63 / M ADM Date: 12/21/23 Loc: MRI Attending Dr: Martin Chen D.O. Ordering Physician: Martin Chen D.O. Date of Service: 12/21/23 Procedure(s): MR shoulder RT wo con Accession Number(s): [id number] cc: Gildardo Lacy M.D.; Martin Chen D.O. The [address] [address] Patient Name: ALEJO FLOYD MRN: [facility]:[id number] date: 1960 Sex: M Assigned Patient Location: MRI Current Patient Location: MRI Accession/Order Number: [id number] Exam Date: 12/21/2023 10:00 Report Date: 12/22/2023 [...] By: Papito Lucero M.D. Signed By: 12/22/23 0383 DD/ 4254 TD/TT: Business Administration Program Chair:TBHRadiology, Radiologist, - 12/22/2023 [facility] [place] [id number] Magnetic Resonance Report Signed Patient: ALEJO FLOYD MR#: [id number] : 1960 Acct:[id number] Age/Sex: 63 / M ADM Date: 12/21/23 Loc: MRI Attending Dr: Martin Chen D.O. Ordering Physician: Martin Chen D.O. Date of Service: 12/21/23 Procedure(s): MR shoulder RT wo con Accession Number(s): [id number] cc: Gildardo Lacy M.D.; Martin Chen D.O. [facility] [place] [id number] Patient Name: ALEJO FLOYD MRN: [id number] date: 1960 Sex: M Assigned Patient Location: MRI Current Patient Location: MRI Accession/Order Number: [id number] Exam Date: 12/21/2023 10:00 Report Date: 12/22/2023 [...] By: Papito Lucero M.D. Signed By: 12/22/23 1337 DD/ 1328 TD/TT: Business Administration Program Chair: SANJUANA CaraballoRadiology Study observation (narrative)SANJUANA CaraballoMR Shoulder - right WO contrastOrdered By: Radiologist Radiology on 93-87-2369DISP Healthcare Work Phone: nm PET/CT SKULL-THIGH SUBQon [...] * Radiopharmaceutical Activity: 6.8 mCi * Radiopharmaceutical: H25-Txoxgjwticfzisowlg (FDG) * All reported standardized uptake values represent maximum SUV (SUVmax) per body weight, unless otherwise specified. COMPARISON: 02/11/2023 CORRELATION: CT neck and chest 09/10/2022 RESULT: REFERENCES: SUV reference values: * Blood pool (descending aorta) activity: SUVmax 2.1 * Background liver activity: SUVmax 2.7 Bilingual Kindergarten Teacher (topogram) images: No additional findings. Notes and [...] any questions regarding this interpretation, please call [phone]. If you are unable to reach us at the number above, please feel free to contact [facility] at [phone]. [id number]^AGFA_IDC^SI^ACNCCFRadiology, RadiologistMD - 12/17/2023 * * *Final Report* [...] * Radiopharmaceutical Activity: 6.8 mCi * Radiopharmaceutical: O30-Uyqzlyiyfpuepncfkr (FDG) * All reported standardized uptake values represent maximum SUV (SUVmax) per body weight, unless otherwise specified. COMPARISON: 02/11/2023 CORRELATION: CT neck and chest 09/10/2022 RESULT: REFERENCES: SUV reference values: * Blood pool (descending aorta) activity: SUVmax 2.1 * Background liver activity: SUVmax 2.7 Bilingual Kindergarten Teacher (topogram) images: No additional findings. Notes and [...] any questions regarding this interpretation, please call [phone]. If you are unable to reach us at the number above, please feel free to contact [facility] at [phone]. [id number]^AGFA_IDC^SI^ACN [facility] HealthcareNo Panel InformationOrdered By: Ccf Provider on 12-17-2023 [facility] CenterPET+CT Guidance for localization of tumor of Skull base to mid-thigh-- W 18F-FDG Joanna 97-62-2592VJROZSEMRI: HEAD/NECK: * No FDG avid neoplastic process. [...] any questions regarding this interpretation, please call [phone]. If you are unable to reach us at the number above, please feel free to contact [facility] at [phone].DIVISION OF RADIOLOGY* * *Final Report* * * [...] * Radiopharmaceutical Activity: 6.8 mCi * Radiopharmaceutical: M83-Zadflzffjhqdyjjpyd (FDG) * All reported standardized uptake values represent maximum SUV (SUVmax) per body weight, unless otherwise specified. COMPARISON: 02/11/2023 CORRELATION: CT neck and chest 09/10/2022 RESULT: REFERENCES: SUV reference values: * Blood pool (descending aorta) activity: SUVmax 2.1 * Background liver activity: SUVmax 2.7 Bilingual Kindergarten Teacher (topogram) images: No additional findings. Notes and [...] Tissues: No abnormal uptake. DIVISION OF RADIOLOGYProvider, [facility] [place] - 12/17/2023 * * *Final Report* * [...] * Radiopharmaceutical Activity: 6.8 mCi * Radiopharmaceutical: X93-Vdcpyfusqviwkyxbjz (FDG) * All reported standardized uptake values represent maximum SUV (SUVmax) per body weight, unless otherwise specified. COMPARISON: 02/11/2023 CORRELATION: CT neck and chest 09/10/2022 RESULT: REFERENCES: SUV reference values: * Blood pool (descending aorta) activity: SUVmax 2.1 * Background liver activity: SUVmax 2.7 Bilingual Kindergarten Teacher (topogram) images: No additional findings. Notes and [...] any questions regarding this interpretation, please call [phone]. If you are unable to reach us at the number above, please feel free to contact [facility] eRadiology at [phone]. [facility] W Auto Differential panel (Bld)on 20-15-6685Ilhtaehxk (Bld) [#/Vol]0.04 10*3/uLNINFCleveland ClinicBasophils/100 WBC (Bld)0.6 %[facility] CenterDifferential cell count method Nom (Bld)AutoCleveland ClinicEosinophils (Bld) [#/Vol]NINFClevelwatauga medical center ClinicEosinophils/100 WBC (Bld)0.3 %[facility] Erythrocyte distribution width (RBC) [Ratio]15.7 %High11.5 - 15.0 %[facility] CenterHematocrit (Bld) [Volume fraction]41.9 %39.0 - 51.0 %[facility] Hemoglobin (Bld) [Mass/Vol]13.9 g/dL13.0 - 17.0 g/dLKettering Health – Soin Medical CenterImmature granulocytes (Bld) [#/Vol]NINFCleveland ClinicImmature granulocytes/100 WBC (Bld)0.3 %[facility] CenterInterpretation and review of laboratory results AbnormalKettering Health – Soin Medical CenterLymphocytes (Bld) [#/Vol]1.15 10*3/uLKettering Health – [facility] Medical Center Lymphocytes/100 WBC (Bld)17.6 %[facility] HospitalH (RBC) [Entitic mass]33.7 pg 26.0 - 34.0 pgClevelRice Memorial HospitalHC (RBC) [Mass/Vol]33.2 g/dL30.5 - 36.0 g/dL [facility] HospitalV (RBC) [Entitic vol]101.5 rTFqqg53.0 - 100.0 fLClevelwatauga medical center ClinicMonocytes (Bld) [#/Vol]0.87 10*3/uLHighNINFCleSumma HealthMonocytes/100 WBC (Bld)13.3 %[facility] CenterNeutrophils (Bld) [#/Vol]4.45 10*3/uLKettering Health – Soin Medical CenterNeutrophils/100 WBC (Bld)67.9 %[facility] CenterNucleated RBC (Bld) [#/Vol] NINFCleveland ClinicNucleated RBC/100 WBC (Bld) [Ratio]0.0 %/100 WBCKettering Health – Soin Medical CenterPlatelet mean volume (Bld) [Entitic vol]9.8 fL9.0 - 12.7 fLClevelwatauga medical center ClinicPlatelets (Bld) [#/Vol]235 10*3/uLFlom ClinicRBC (Bld) [#/Vol]4.13 10*6/uLLow4.20 - 6.00 m/uLKettering Health – Soin Medical CenterWBC (Bld) [#/Vol]6.55 10*3/uLKindred Hospital DaytonComprehensive metabolic 2000 panelOrdered By: Felisha Munoz on 37-85-9075Dabiyxt [Mass/Vol]4.7 g/dL3.9 - 4.9 g/dLFlom ClinicALP [Catalytic activity/Vol]62 U/L38 - 113 U/LCleveland ClinicALT [Catalytic activity/Vol]7 U/LLow10 - 54 U/LCleveland ClinicAnion gap [Moles/Vol]9 mmol/L8 - 15 mmol/LCleveland ClinicAST [Catalytic activity/Vol]19 U/L14 - 40 U/LCleveland ClinicBilirubin [Mass/Vol]1.0 mg/dL0.2 - 1.3 mg/dLFlom ClinicCalcium [Mass/Vol]10.3 mg/dLHigh8.5 - 10.2 mg/dLFlom ClinicChloride [Moles/Vol]105 mmol/L98 - 107 mmol/LCleveland ClinicCO2 [Moles/Vol]24 mmol/L22 - 30 mmol/L [facility] CenterCreatinine [Mass/Vol]0.81 mg/dL0.73 - 1.22 mg/dLKettering Health – [facility] Center GFR/1.73 sq M.predicted among non-blacks MDRD (S/P/Bld) [Vol rate/Area]99 mL/min/{1.73_m2}- PINSalem Regional Medical CenterComment on above:Estimated Glomerular Filtration Rate (eGFR) is calculated using the 2020 CKD-EPI creatinine equation. This equation utilizes serum creatinine, sex, and age as parameters. The creatinine assay has traceable calibration to isotope dilution-mass spectrometry. Refer to KDIGO guidelines for clinical interpretation. In patients with unstable renal function, e.g. those with acute kidney injury, the eGFRmay not accurately reflect actual GFR.Glucose [Mass/Vol]104 mg/iRSznp93 - 99 mg/dL [facility] CenterComment on above:The [place] Diabetes Association (ADA) provides guidance for cutoff [...] Standards of Medical Care in Diabetes 2016, [place] [employer]. Diabetes Care. 2016.39(Suppl 1). Interpretation and review of laboratory resultsAbnormalClevelwatauga medical center ClinicPotassium [Moles/Vol]4.4 mmol/L3.7 - 5.1 mmol/LClevelwatauga medical center ClinicProtein [Mass/Vol]7.5 g/dL 6.3 - 8.0 g/dLRegency Hospital Cleveland Eastveland ClinicSodium [Moles/Vol]138 mmol/L136 - 144 mmol/L [facility] CenterUrea nitrogen [Mass/Vol]13 mg/dL9 - 24 mg/dLFulton County Health Center ClinicGLUCOSE, BLOOD (POC)on 83-74-1126Yojkgyr [Mass/Vol]111 mg/dL Ovqzqfwo69 - 99 mg/dLKettering Health – Soin Medical CenterComment on above:Location:[facility], [address] [place] [address] , [place], [place], [facility] The Accu-Chek Inform II glucose meter has [...] above situations. Interpretation and review of laboratory resultsAbnormalCFostoria City HospitalNo Panel Informationon 63-57-6271Zixdiozrn Study observation (narrative) [facility] CenterTHYROID STIMULATING HORMONEon 52-83-1230XRT Qn4.700 m[IU]/LHigh [facility] Qnon 44-50-7109Npyskuwgadvfcj and review of laboratory resultsAbnormalCmercy health west hospitaland Dayton Osteopathic HospitalECG 12 [place] 12-66-9090QWI revealed normal sinus rhythm with [facility] Work Phone: Cholesterol [Mass/volume] in Serum or PlasmaOrdered By: Carmen Neely on 76-44-3421Lqyhdpzyayg [Mass/Vol]116 mg/lJHlu983-632 [facility] OhioComment on above:Chol less than 200 mg/dl low riskChol 201-239 mg/dl borderline riskChol 240 mg/dl and greater high riskResult Comment: Chol less than 200 mg/dl low risk Chol 201-239 mg/dl borderline risk Chol 240 mg/dl and greater high riskPerformed By: #### LIPID #### [facility] [address] [place] [address] USACholesterol in LDL Calc [Mass/Vol]Ordered By: Carmen Neely on 43-92-3890Iwuuxxhjlcx in LDL [Mass/Vol]48 mg/dL0-100[facility] Southeast OhioComment on above:LDL ATP III CLASSIFICATIONLDL less than 100 mg/dL OptimalLDL 100-129 mg/dL Near or above qfaosqcBMF989-096 mg/dL Borderline highLDL 160-189 mg/dL HighLDL greater than 189 mg/dL Very high Cholesterol in VLDL Calc [Mass/Vol]Ordered By: Carmen Neely on 09-08-2023 Cholesterol in VLDL [Mass/Vol]16 mg/dLSelect Medical Specialty Hospital - Southeast OhioLipid Panelon 59-17-6016JJX Cholesterol,Rkymvyyqyk95 mg/dLNormal0-100[facility] Physician GroupComment on above:Result Comment: LDL ATP III CLASSIFICATION LDL less than 100 mg/dL Optimal LDL 100-129 mg/dL Near or above optimal LDL 130-159 mg/dL Borderline high LDL 160-189 mg/dL High LDL greater than 189 mg/dL Very highPerformed By: #### LIPID #### [facility] [address] [place] [address] USATriglyceride w/Jyxddi76 mg/dLNormal0-149[facility] Physician GroupComment on above:Result Comment: TRIG ATP III CLASSIFICATION TRIG less than 150 mg/dL Normal TRIG 150-199 mg/dL Borderline high TRIG 200-500 mg/dL High TRIG greater than 500 mg/dL Very high Standard traceable to the Center for Disease Conrtrol and Prevention (CDC) test method.Performed By: #### LIPID #### [place] [address] USAVLDL ZKYTHAVHPHN21 mg/dLNoColumbus Regional Healthcare System Physician GroupComment on above:Performed By: #### LIPID #### [place] [address] USASerum or plasma high density lipoprotein (HDL) cholesterol measurementOrdered By: Carmen Neely on 18-36-5979Owbqshvbeci in HDL [Mass/Vol]51 mg/iFDvgbzb57-10WxmtcsjfwSelect Medical Specialty Hospital - Southeast OhioComment on above: HDL CHOL ATP-III CLASSIFICATION Cardiovascular RiskHDL > or equal to 60 mg/dL LOWHDL < 40 mg/dL HIGHResult Comment: HDL CHOL ATP-III CLASSIFICATION Cardiovascular Risk HDL > or equal to 60 mg/dL LOW HDL < 40 mg/dL HIGHPerformed By: #### LIPID #### [place] [address] USASerum or plasma total cholesterol/high density lipoprotein (HDL) cholesterol mass ratOrdered By: Carmen Neely on 09-08-2023 Cholesterol.total/Cholesterol in HDL [Mass ratio]2.3 {ratio}Normal<5.0[facility] Southeast OhioComment on above:Result Comment: PERFORMED BY: [place] [address] PATHOLOGIST MOTOR MAN HECTOR MARTIN M.D.Performed By: #### LIPID #### [place] [address] USATriglyceride [Mass/volume] in Serum or PlasmaOrdered By: Carmen Neely on 97-40-4217Twwvuecieuhf [Mass/Vol]84 mg/dL0-149[facility] OhioComment on above:TRIG ATP III CLASSIFICATIONTRIG less than 150 mg/dL NormalTRIG 150-199 mg/dL Borderline highTRIG 200-500 mg/dL High TRIG greater than 500 mg/dL Very highStandard traceable to the Center for Disease Conrtrol and Prevention (CDC) test method.THYROID STIMULATING HORMONEon 17-33-7465ESD Qn1.730 m[IU]/L0.270 - 4.200 mIU/LCleveland Bigfork Valley HospitalBasic metabolic 2000 panelon 28-69-7813Dhiqz gap [Moles/Vol]10 mmol/L9 - 18 mmol/LCleveland ClinicCalcium [Mass/Vol]10.2 mg/dL8.5 - 10.2 mg/dLKettering Health – Soin Medical CenterChloride [Moles/Vol]102 mmol/L97 - 105 mmol/LCleveland ClinicCO2 [Moles/Vol]25 mmol/L22 - 30 mmol/LCleveland ClinicCreatinine [Mass/Vol]1.20 mg/dL0.73 - 1.22 mg/dL [facility] CenterEstimated Glomerular Filtration Rate68 mL/min/1.73m>=60 mL/min/1.73mCleveland ClinicGlucose [Mass/Vol]101 mg/rKZlee92 - 99 mg/dL [facility] CenterPotassium [Moles/Vol]3.7 mmol/L3.7 - 5.1 mmol/LCleveland Clinic Sodium [Moles/Vol]137 mmol/L136 - 144 mmol/LCleveland ClinicUrea nitrogen [Mass/Vol]16 mg/dL9 - 24 mg/dLKettering Health – Soin Medical CenterCB W Auto Differential panel (Bld)on 48-42-0678Qxtcmxhbe (Bld) [#/Vol]0.03 10*3/uL<0.11 k/uLKettering Health [facility] Center Basophils/100 WBC (Bld)0.4 %[facility] CenterDifferential cell count method Nom (Bld)AutoCleveland ClinicEosinophils (Bld) [#/Vol]0.03 10*3/uL<0.46 k/uL [facility] CenterEosinophils/100 WBC (Bld)0.4 %[facility] CenterErythrocyte distribution width (RBC) [Ratio]13.3 %11.5 - 15.0 %[facility] CenterHematocrit (Bld) [Volume fraction]43.2 %39.0 - 51.0 %[facility] CenterHemoglobin (Bld) [Mass/Vol]14.3 g/dL13.0 - 17.0 g/dLKettering Health – Soin Medical CenterImmature granulocytes (Bld) [#/Vol]0.03 10*3/uL<0.10 k/uLFlom ClinicImmature granulocytes/100 WBC (Bld) 0.4 %[facility] Medical CenterLymphocytes (Bld) [#/Vol]1.63 10*3/uL1.00 - 4.00 k/uL [facility] CenterLymphocytes/100 WBC (Bld)20.2 %[facility] HospitalH (RBC) [Entitic mass]34.0 pg26.0 - 34.0 pgClevelRice Memorial HospitalHC (RBC) [Mass/Vol]33.1 g/dL30.5 - 36.0 g/dLNorwalk Memorial HospitalV (RBC) [Entitic vol]102.6 uXUtnm82.0 - 100.0 fLClevelwatauga medical center ClinicMonocytes (Bld) [#/Vol]0.78 10*3/uL<0.87 k/uLFlom ClinicMonocytes/100 WBC (Bld)9.7 %[facility] CenterNeutrophils (Bld) [#/Vol]5.55 10*3/uL1.45 - 7.50 k/uLFlom ClinicNeutrophils/100 WBC (Bld)68.9 %[facility] CenterNucleated RBC (Bld) [#/Vol]<0.01 k/uLKettering Health – Soin Medical CenterNucleated RBC/100 WBC (Bld) [Ratio]0.0 /100 WBCFlom ClinicPlatelet mean volume (Bld) [Entitic vol]9.4 fL9.0 - 12.7 fLCleveland ClinicPlatelets (Bld) [#/Vol]226 10*3/uL150 - 400 k/uLKettering Health – Soin Medical CenterRBC (Bld) [#/Vol]4.21 10*6/uL4.20 - 6.00 m/[facility] ClinicWBC (Bld) [#/Vol]8.05 10*3/uL3.70 - 11.00 k/[facility] Medical CenterEGMENTAL BLOOD PRESSUREon 01-69-3273[address] [address] Cardiology Report Signed Patient: ALEJO FLOYD MR#: [id number] : 1960 Acct:[id number] Age/Sex: 62 / M ADM Date: 07/01/23 Loc: CARD Attending Dr: Gildardo Lacy M.D. Ordering Physician: Gildardo Lacy M.D. Date of Service: 07/01/23 Procedure(s): CA segmental UE or LE BEBA Accession Number(s): [id number] cc: Gildardo Lacy M.D. [facility] Test Date: 2023-07-01 Pat Name: ALEJO FLOYD Department: Room: - Gender: Male Customer Acquisition Specialist: : 1960 Requested By: GILDARDO LACY Order Number: [id number] Reading MD: ELIZABETH GALINDO Interpretive Statements Monophasic [...] D.O. Signed By: 07/02/23232207/02/232322 DD/ 1444 TD/TT: Business Administration Program Chair:TBHRadiology, Radiologist, MD - 07/02/2023 [place] [address] Cardiology Report Signed Patient: ALEJO FLOYD MR#: [id number] : 1960 Acct:[id number] Age/Sex: 62 / M ADM Date: 07/01/23 Loc: CARD Attending Dr: Gildardo Lacy M.D. Ordering Physician: Gildardo Lacy M.D. Date of Service: 07/01/23 Procedure(s): CA segmental UE or LE BEBA Accession Number(s): [id number] cc: Gildardo Lacy M.D. [facility] Test Date: 2023-07-01 Pat Name: ALEJO FLOYD Department: Room: - Gender: Male Customer Acquisition Specialist: : 1960 Requested By: GILDARDO LACY Order Number: [id number] Reading MD: ELIZABETH GALINDO Interpretive Statements Monophasic [...] D.O. Signed By: 07/02/23232207/02/232322 DD/ 1444 TD/TT: Business Administration Program Chair: SANJUANA CaraballoSEGMENTAL BLOOD PRESSUREOrdered By: Radiologist Radiology on 25-25-7363NQFP [employer] Work Phone: SEGMENTAL BLOOD PRESSUREon 39-06-1710Diegahqrd Study observation (narrative)SANJUANA CaraballoUS.doppler Carotid arteries - bilateralon 75-69-9782Fas[address] [address] Ultrasound Report Signed Patient: ALEJO FLOYD MR#: [id number] : 1960 Acct:[id number] Age/Sex: 62 / M ADM Date: 07/01/23 Loc: CARD Attending Dr: Gildardo Lacy M.D. Ordering Physician: Gildardo Lacy M.D. Date of Service: 07/01/23 Procedure(s): US carotid duplex BI Accession Number(s): [id number] cc: Gildardo Lacy M.D. [address] [address] Patient Name: ALEJO FLOYD MRN: [id number] date: 1960 Sex: M Assigned Patient Location: CARD Current Patient Location: CARD Accession/Order Number: [id number] Exam Date: 07/01/2023 13:15 Report Date: 07/01/2023 [...] >70 >225 >4.0 Electronically authenticated by: ALBINA HERANNDEZ Date: 07/01/2023 14:16 Dictated By: Albina Hernandez M.D. Signed By: 07/01/23 1418 DD/ 1416 TD/TT: Business Administration Program Chair:TBHRadiology, Radiologist, - 07/01/2023 [place] [address] Ultrasound Report Signed Patient: ALEJO FLOYD MR#: [id number] : 1960 Acct:[id number] Age/Sex: 62 / M ADM Date: 07/01/23 Loc: CARD Attending Dr: Gildardo Lacy M.D. Ordering Physician: Gildardo Lacy M.D. Date of Service: 07/01/23 Procedure(s): US carotid duplex BI Accession Number(s): [id number] cc: Gildardo Lacy M.D. [facility] [place] [id number] Patient Name: ALEJO FLOYD MRN: [id number] date: 1960 Sex: M Assigned Patient Location: CARD Current Patient Location: CARD Accession/Order Number: [id number] Exam Date: 07/01/2023 13:15 Report Date: 07/01/2023 [...] Signed By: 07/01/23 1418 DD/ 15 TD/TT: Business Administration Program Chair: [facility] HealthcareRadiology Study observation (narrative)[facility]'s HospitalUS.doppler Carotid arteries - bilateralOrdered By: Radiologist Radiology on 27-83-4459WPSNSt. Louis Children's Hospital Work Phone: PEX+CT Guidance for localization of tumor of Skull base to mid-thigh-- W 18F-FDG Joanna 57-86-1220DOIADJDHFQ: 1. Neck: No new suspicious hypermetabolic foci [...] any questions regarding this interpretation, please call [phone]. If you are unable to reach us at the number above, please feel free to contact [facility] at [phone].DIVISION OF RADIOLOGY* * *Final Report* * * [...] SKELETON: There are no hypermetabolic osseous lesions. Bilingual Kindergarten Teacher (topogram) images:No additional findings. DIVISION OF RADIOLOGYProvidiley ridge medical center, [facility] [place] - 02/12/2023 * * *Final Report* * [...] SKELETON: There are no hypermetabolic osseous lesions. Bilingual Kindergarten Teacher (topogram) images:No additional findings. IMPRESSION IMPRESSION: 1. [...] any questions regarding this interpretation, please call [phone]. If you are unable to reach us at the number above, please feel free to contact [facility] eRadiology at [phone]. [facility] HospitalCT Guidance for localization of tumor of Skull base to mid-thigh-- W 18F-FDG IVOrdered By: Ccf Provider on 84-06-4560Zhczvmqaj [facility] GLUCOSE, BLOOD (POC)on 03-10-8409Yhgavzz [Mass/Vol]108 mg/kFNyorbukw46 - 99 mg/dLKettering Health – Soin Medical CenterComment on above:Location:[facility], [address] [place] [address] , [place], [place], [facility] The Accu-Chek Inform II glucose meter has [...] above situations. Interpretation and review of laboratory resultsAbnormalCmercy health west hospitaland ClinicCleveland ClinicPET+CT Guidance for localization of tumor of Skull base to mid-thigh-- W 18F-FDG Joanna 80-90-1852Deutcejqp Study observation (narrative)[facility] CenterCT Chest W contrast Joanna 61-96-8882QKFZXDBIQL: 1. Subcentimeter bilateral pulmonary nodules, stable from [...] any questions regarding this interpretation, please call [phone]. If you are unable to reach us at the number above, please feel free to contact [facility] eRadiology at [phone].DIVISION OF RADIOLOGY* * *Final Report* * * DATE OF EXAM: Sep 10 2022 8:42AM [facility] 0539 - CT CHEST W [...] fossa. Epigastric ventral abdominal wall hernia, stable. Bilingual Kindergarten Teacher (topogram) images: No additional findings. DIVISION OF RADIOLOGYProvider, [facility] [place] - 09/11/2022 * * *Final Report* * * DATE OF EXAM: Sep 10 2022 8:42AM [facility] 0539 - CT CHEST W [...] fossa. Epigastric ventral abdominal wall hernia, stable. Bilingual Kindergarten Teacher (topogram) images: No additional findings. IMPRESSION IMPRESSION: [...] any questions regarding this interpretation, please call [phone]. If you are unable to reach us at the number above, please feel free to contact [facility] eRadiology at [phone]. [facility] Neck WO contraston 09-10-2022* * *Final Report* * * DATE OF EXAM: Sep 10 2022 8:36AM [facility] 0509 - CT NECK SOFT [...] any questions regarding this interpretation, please call [phone]. If you are unable to reach us at the number above, please feel free to contact [facility] at [phone].DIVISION OF RADIOLOGYProvider, [facility] [place] - 09/10/2022 * * *Final Report* * * DATE OF EXAM: Sep 10 2022 8:36AM [facility] 0509 - CT NECK SOFT [...] any questions regarding this interpretation, please call [phone]. If you are unable to reach us at the number above, please feel free to contact [facility] eRadiology at [phone]. [facility] Neck WO contrastOrdered By: Ccf Provider on 09-10-2022 [facility] CenterNo Panel Informationon 95-04-0407Nrwabgiyw Study observation (narrative)[facility] AUTO DIFFon 88-88-3821QRIL #0.0 103/ulNormal 0.0-0.1[facility] Main CampusComment on above:Performed By: #### CBC #### [facility] [address] [place] [address] Dr. Herb JonesBasophils/100 WBC (Bld)0.4 %Normal0.2-2.0[facility] Comment on above:Performed By: #### CBC #### [facility] [address] [address] [address] Herb Cannon #0.2 103/ulNormal0.0-0.7The [facility] Hospital For RehabilitationComment on above: Performed By: #### CBC #### [facility] [address] [address] [address] Herb Chewosinophils/100 WBC (Bld)1.6 %Normal0.9-7.0[facility] Comment on above:Performed By: #### CBC #### [facility] [address] [place] [address] Dr. Herb Chewrythrocyte distribution width (RBC) [Ratio]16.3 %Critically high 11.0-15.0The [facility] For RehabilitationComment on above:Performed By: #### CBC #### [facility] [address] [place] [address] Dr. Herb JonesHematocrit (Bld) [Volume fraction]37.3 %Critically low42.0-54.0 The [facility] HospitalComment on above:Performed By: #### CBC #### [facility] [address] [place] [address] Dr. Herb JonesHemoglobin (Bld) [Mass/Vol]12.5 g/dLCritically low14.0-18.0The [facility] For RehabilitationComment on above:Performed By: #### CBC #### [facility] [address] [place] [address] Dr. Herb Haley #0.03 10e3/ulNormal0.00-0.03The [facility] For RehabilitationComment on above:Performed By: #### CBC #### [facility] [address] [place] [address] Dr. Herb Haley %0.3 %Normal0.0-0.5The [facility] For RehabilitationComment on above: Performed By: #### CBC #### [facility] [address] [place] [address] Dr. Herb MannH #1.0 103/ulCritically low1.2-3.8The [facility] Comment on above:Performed By: #### CBC #### [facility] [address] [place] [address] Dr. Herb Pughmphocytes/100 WBC (Bld)9.6 %Critically low20.5-60.0[facility] CampusComment on above:Performed By: #### CBC #### [facility] [address] [place] [address] Dr. Herb BoudreauxUAL DIFF REQNONormalThe [facility] Hospital For RehabilitationComment on above: Performed By: #### CBC #### [facility] [address] [place] [address] Dr. Herb Joshi (RBC) [Entitic mass]31.9 soVxoioe52.9-34.0The [facility] For RehabilitationComment on above:Performed By: #### CBC #### [facility] [address] [address] [address] Herb Joshi (RBC) [Mass/Vol]33.5 g/wCEipzug60.9-35.2The [facility] For RehabilitationComment on above:Performed By: #### CBC #### [facility] [address] [address] [address] Herb JoshiV (RBC) [Entitic vol]95.2 fLCritically high80.0-94.0The [facility] For RehabilitationComment on above:Performed By: #### CBC #### [facility] [address] [place] [address] Dr. Herb Wong #1.1 103/ulCritically high0.3-0.8ThClinton Memorial Hospital Comment on above:Performed By: #### CBC #### [facility] [address] [address] [address] Herb Kruseocytes/100 WBC (Bld)10.6 %Normal1.7-12.0[facility] Comment on above:Performed By: #### CBC #### [facility] [address] [address] [address] Herb Donis #8.0 103/ulCritically high1.4-6.5The [facility] Comment on above:Performed By: #### CBC #### [facility] [address] [address] [address] Herb Medellinutrophils/100 WBC (Bld)77.5 %Critically high43.0-75.0The [facility] For RehabilitationComment on above:Performed By: #### CBC #### [facility] Laboratory [address] [address] [address] Herb Celayalet mean volume (Bld) [Entitic vol]8.8 fLCritically low 9.5-13.5The [facility] Hospital For RehabilitationComment on above:Performed By: #### CBC #### [facility] Laboratory [address] [address] [address] Herb JonesPLT326 103/dmBkgflp696-399Udj [facility] For RehabilitationComment on above: Performed By: #### CBC #### [facility] Laboratory [id number] Herb JonesRBC3.92 106/ulCritically low4.70-6.10The [facility] For RehabilitationCommymichigan medical center on above:Performed By: #### CBC #### [facility] Laboratory [address] [address] [address] Herb JonesWBC10.3 103/ulNormal4.0-11.0The [facility] on above:Performed By: #### CBC #### [facility] Laboratory [address] [address] [address] Herb Madrigal-19 PCR (CVDTBH)on 39-69-0456BJHT-CoV-2 (COVID-19) RNA BLANCA+probe Ql (Unsp spec)Not detectedNormalNOT DETECTEDThe [facility] Comment on above:Result Comment: This test is not yet approved or cleared by the [place] FDA. When there are no FDA-approved or cleared tests available, and other criteria are met, FDA can make tests available under an emergency access mechanism called an Emergency Use Authorization (EUA). The EUA for this test is supported by the [employer] of Health and Human Service's (HHS's) declaration [...] symptoms consistent with SARS-CoV-2.Performed By: #### CVDTBH ####[facility] [address] [address]Dr. Herb JonesGROUP A STREP CULTUREon 08-30-2022S. pyogenes Ag Ql (Unsp spec)Culture Observations: NEGATIVE FOR GROUP A STREPTOCOCCUS.NormalThe [facility] Hospital For RehabilitationComment on above: Performed By: #### SSCRN, GRASTCX ####[facility] [address] [address]Dr. Herb JonesINFLUENZA A AND B AGon 08-30-2022 INFLUANEGHSEE BELOWGuernsey Memorial HospitalComment on above:Result Comment: Negative for Flu A protein angiten. Infection due to Flu A cannot be ruled out. FluA angiten in the sample may be below the detection limit of the test. Performed By: #### INFLUAB ####[facility] [address] [place], [place] [address]Dr. Herb JonesINFLUBNEGHSEE [facility] Memorial HospitalComment on above:Result Comment: Negative for Flu B protein antigen. Infection due to Flu B cannot be ruled out. FluB antigen in the sample may be below the detection limit of the test.Performed By: #### INFLUAB ####[facility] [address] [place], [place] [address]Dr. Herb Jones INFLUENZA A AGNegativeNormalNEGATIVE SEE COMMENTThe [facility] Hospital For RehabilitationCommymichigan medical center on above:Performed By: #### INFLUAB ####[facility] [address] [place], [place] [address]Dr. Herb JonesINFLUENZA B AGNegativeNormalNEGATIVE SEE COMMENTThe [facility] Hospital For RehabilitationComment on above:Performed By: #### INFLUAB ####[facility] [address] [address]Dr. Herb JonesPROF 14(COMP METB)on 86-91-2338Sqfaztk [Mass/Vol]3.2 g/dLCritically low3.4-5.0The [facility] For RehabilitationComment on above:Performed By: #### CMP #### [facility] Laboratory [address] [address] [address] Herb JonesAlbumin/Globulin [Mass ratio]0.8 {ratio}NormalThe [facility] Hospital For RehabilitationComment on above:Performed By: #### CMP #### [facility] Laboratory [address] [address] [address] Herb Lord [Catalytic activity/Vol]148 U/LCritically dmqv48-043Idb [facility] For RehabilitationComment on above:Performed By: #### CMP #### [facility] Laboratory [address] [address] [address] Herb HuttonT [Catalytic activity/Vol]23 U/HTsynvg46-61Pcx [facility] For RehabilitationComment on above:Performed By: #### CMP #### [facility] Laboratory [address] [address] [address] Herb Lubin gap [Moles/Vol]13.9 mmol/LNormalThe [facility] Comment on above:Performed By: #### CMP #### [facility] Laboratory [address] [address] [address] Herb JonesAST [Catalytic activity/Vol]22 U/XMobnyc73-45Wfo [facility] For RehabilitationComment on above:Performed By: #### CMP #### [facility] Laboratory [address] [address] [address] Herb JonesBilirubin [Mass/Vol]0.6 mg/dLNormal0.2-1.0[facility] Comment on above:Performed By: #### CMP #### [facility] Laboratory [address] [address] [address] Herb JonesCalcium [Mass/Vol]9.0 mg/dLNormal8.5-10.1The [facility] Comment on above:Performed By: #### CMP #### [facility] Laboratory [address] [address] [address] Herb JonesChloride [Moles/Vol]101 mmol/OPzohyo35-746Fjf [facility] Comment on above:Performed By: #### CMP #### [facility] Laboratory [address] [address] [address] Herb JonesCO2 [Moles/Vol]21.9 mmol/BTajodw38.0-32.0The [facility] Comment on above:Performed By: #### CMP #### [facility] Laboratory [address] [address] [address] Herb JonesCreatinine [Mass/Vol]0.97 mg/dLNormal0.70-1.30The [facility] For RehabilitationComment on above:Performed By: #### CMP #### [facility] Laboratory [address] [address] [address] Herb ChewGFR-AF DUTCH>60Normal>=60The [facility] For RehabilitationComment on above:Performed By: #### CMP #### [facility] Laboratory [address] [address] [address] Herb ChewGFR-NON AF DUTCH>60Normal>=60The [facility] For RehabilitationComment on above:Performed By: #### CMP #### [facility] Laboratory [address] [place] [address] Dr. Herb JonesGlobulin (S) [Mass/Vol]4.2 g/dLNormalThe [facility] Hospital For RehabilitationComment on above:Performed By: #### CMP #### [facility] Laboratory [address] [place] [address] Dr. Herb JonesGlucose [Mass/Vol]102 mg/qNQqturc90-691RvhKettering Health Main Campus Comment on above:Performed By: #### CMP #### [facility] Laboratory [address] [place] [address] Dr. Herb JonesPotassium [Moles/Vol]3.8 mmol/LNormal3.5-5.1The [facility] Comment on above:Performed By: #### CMP #### [facility] Laboratory [address] [place] [address] Dr. Herb JonesProtein [Mass/Vol]7.4 g/dLNormal6.4-8.2[facility] Comment on above:Performed By: #### CMP #### [facility] Laboratory [address] [place] [address] Dr. Herb JonesSodium [Moles/Vol]133 mmol/LCritically tna054-326Egh [facility] For RehabilitationComment on above:Performed By: #### CMP #### [facility] Laboratory [address] [address] [address] Herb JonesUrea nitrogen [Mass/Vol]12.0 mg/dLNormal7.0-18.0The [facility] For RehabilitationComment on above:Performed By: #### CMP #### [facility] Laboratory [address] [address] [address] Herb JonesUrea nitrogen/Creatinine [Mass ratio]12.4 mg/mgNoThe Christ HospitalComment on above:Performed By: #### CMP #### [facility] Laboratory [address] [address] [address] Herb JonesSTREPT SCREENon 19-72-9908SSIYO SCREEN ANegativeNormalNEGATIVEThe [facility] Hospital For RehabilitationComment on above:Performed By: #### SSCRN, GRASTCX ####[facility] [address] [address]Dr. Herb Jones SYMPTOMATIC COVID-19 ANTIGENon 29-32-0484XZM StatementSEE BELOWGuernsey Memorial HospitalComment on above:Result Comment: This test has [...] authorization is revoked sooner.Performed By: #### CVDAGS ####[facility] [address] [address]Dr. Herb JonesSARS-CoV-2 (COVID-19) RNA BLANCA+probe Ql (Unsp spec)NegativeNormalNEGATIVEKettering Health Main CampusComment on above:Performed By: #### CVDAGS ####[facility] [address] [address]Dr. Yilan ChangXR CHEST 1 Von 93-79-8136PL CHEST 1 VEXAM: XR CHEST 1 V HISTORY: COUGH COMPARISON: 05/27/2021 TECHNIQUE: Chest X-ray AP, 1 view FINDINGS: Support devices: None. Lungs/pleura: No consolidation, effusion, or pneumothorax. Heart and mediastinum: Normal contours. Bones: No acute abnormality identified. Impression: No consolidation. However, pneumonia can be radiographically occult in the early stage. Electronically authenticated by: EMILY MUNROE Date: 2022-08-30 16:36Guernsey Memorial HospitalLIPID PROFILEon 79-42-2075VLJA-HDL RATIO NORMSEE [facility] HospitalCommymichigan medical center on above:Result Comment: 3.3 - 4.4 LOW RISK 4.4 - 7.1 AVERAGE RISK 7.1 - 11.0 MODERATE RISK >11.0 HIGH RISKPerformed By: #### LIPID, ALT, AST ####[facility] [address] [address]Dr. Herb ChangCholesterol [Mass/Vol]111 mg/dLNormal<=200[facility] CampusCommymichigan medical center on above:Performed By: #### LIPID, ALT, AST ####[facility] [address] [address]Dr. Herb Jones Cholesterol in HDL [Mass/Vol]46 mg/tWGbjsys11-30MttKettering Health Main CampusCommymichigan medical center on above:Performed By: #### LIPID, ALT, AST ####[facility] [address] [address]Dr. Lizetlan ChangCholesterol in LDL [Mass/Vol] 56.4 mg/dLGuernsey Memorial HospitalCommymichigan medical center on above:Performed By: #### LIPID, ALT, AST ####[facility] [address] [address]Dr. Yilan ChangCholesterol.total/Cholesterol in HDL [Mass ratio]2.4 {ratio} NormalJoint Township District Memorial Hospital on above:Performed By: #### LIPID, ALT, AST ####[facility] [address] [address]Dr. Herb JonesHDL NORMAL> or = 60 mg/dl - LOW CARDIOVASCULAR RISK <40 mg/dl - HIGH CARDIOVASCULAR RISKGuernsey Memorial HospitalComment on above:Performed By: #### LIPID, ALT, AST ####[facility] [address] [address]Dr. Herb ChangLDL CALC NORMALSEE BELOWNoThe Christ HospitalComment on above:Result Comment: <100 mg/dl OPTIMAL 100 - 129 mg/dl NEAR OR ABOVE OPTIMAL 130 - 159 mg/dl BORDERLINE HIGH 160 - 189 mg/dl HIGH >190 mg/dl VERY HIGHPerformed By: #### LIPID, ALT, AST ####[facility] [address] [address]DrVinod JonesTriglyceride [Mass/Vol]43 mg/dLNormal<=150The [facility] For RehabilitationComment on above:Performed By: #### LIPID, ALT, AST ####[facility] [address] [address]Dr. Herb JonesVLDL CALC8.6 mg/dLNoThe Christ HospitalComment on above:Performed By: #### LIPID, ALT, AST ####[facility] [address] [address]Dr. Herb Edmondson on 90-51-7599TGX [Catalytic activity/Vol]18 U/RWtfycd67-96KptKettering Health Main Campus Comment on above:Performed By: #### LIPID, ALT, AST #### [facility] Laboratory [address] [address] [address] Herb Celis 69-57-4698LTN [Catalytic activity/Vol]20 U/HQuunll33-42LxiKettering Health Main CampusComment on above:Performed By: #### LIPID, ALT, AST #### [facility] Laboratory [address] [address] [address] Herb Palma Visit (Cardiology)on 15-66-7086Chsjap-up visit Diagnoses/Problems Assessed Mixed hyperlipidemia (272.2) (E78.2) PVD (peripheral vascular disease) (443.9) (I73.9) Status post left lower extremity stenting TIA (transient ischemic attack) (435.9) (G45.9) Former smoker (V15.82) (Z87.891) quit 05/22/22 Overweight with body mass index (BMI) of 25 to 25.9 in adult (278.02,V85.21) (E66.3,Z68.25) Orders Abnormal EKG IO EKG Electrocardiogram- 12 Lead; Status:Complete; Done: 41Uqz2679 Mixed hyperlipidemia Start: Atorvastatin Calcium 20 MG Oral Tablet; TAKE 1 TABLET AT BEDTIME ALT - Alanine Aminotransferase, Serum; Status:Active - Retrospective Authorization; Requested for:91Ane9584; AST; Status:Active - Retrospective Authorization; Requested for:70Fdq6355; Lipid Panel; Status:Active - Retrospective Authorization; Requested for:70Hoc9160; PVD (peripheral vascular disease) Renew: Aspirin 81 MG Oral Tablet Delayed Release; TAKE 1 TABLET DAILY SocHx: Former smoker Tobacco Use Screening; Status:Complete; Done: 22Pqy8849 SocHx: Former smoker, Overweight with body mass index (BMI) of 25 to 25.9 in adult Healthy Weight Tips; Status:Complete - Retrospective Authorization; Done: 16Zcf9728 Some eating tips that can help you lose weight.; Status:Complete - Retrospective Authorization; Done: 44Olh0118 Unlinked Stop: Amiodarone HCl - 200 MG [...] of your visit. obtain PVR test from [facility] Follow up in 6 months Chief Complaint [...] study several months ago at [facility] which I requested. His cardiac and pulmonary [...] Omeprazole (more content not included)...NormalUH TouchworksTobacco Screening.on 56-01-1933Dodvitm use status CPHSb) NoMP-[facility] [employer] 250 DO Work Phone: Tobacco Screening.YesMP-Northfield City HospitalNubleer Media 250 DO Work Phone: CBC W Auto Differential panel (Bld)on 05-20-2022 Basophils (Bld) [#/Vol]0.07 10*3/uL<0.11 k/uLKettering Health – Soin Medical CenterBasophils/100 WBC (Bld)1.1 %[facility] CenterDifferential cell count method Nom (Bld)AutoCleveland ClinicEosinophils (Bld) [#/Vol]0.08 10*3/uL<0.46 k/uLKettering Health – Soin Medical Center Eosinophils/100 WBC (Bld)1.3 %[facility] Medical CenterErythrocyte distribution width (RBC) [Ratio]14.5 %11.5 - 15.0 %[facility] Medical CenterHematocrit (Bld) [Volume fraction]43.8 %39.0 - 51.0 %[facility] Medical CenterHemoglobin (Bld) [Mass/Vol]14.1 g/dL 13.0 - 17.0 g/dLKettering Health – Soin Medical CenterImmature granulocytes (Bld) [#/Vol]0.05 10*3/uL <0.10 k/uLKettering Health – Soin Medical CenterImmature granulocytes/100 WBC (Bld)0.8 %[facility] Soin Medical CenterLymphocytes (Bld) [#/Vol]1.33 10*3/uL1.00 - 4.00 k/uLKettering Health – Soin Medical Center Lymphocytes/100 WBC (Bld)21.8 %[facility] Memorial HospitalH (RBC) [Entitic mass]31.9 pg 26.0 - 34.0 pgClevelRice Memorial HospitalHC (RBC) [Mass/Vol]32.2 g/dL30.5 - 36.0 g/dL [facility] CenterMCV (RBC) [Entitic vol]99.1 fL80.0 - 100.0 fLCleveland Clinic Monocytes (Bld) [#/Vol]0.72 10*3/uL<0.87 k/uLKettering Health – Soin Medical CenterMonocytes/100 WBC (Bld)11.8 %[facility] Medical CenterNeutrophils (Bld) [#/Vol]3.86 10*3/uL1.45 - 7.50 k/uL [facility] Medical CenterNeutrophils/100 WBC (Bld)63.2 %[facility] Medical CenterNucleated RBC (Bld) [#/Vol]<0.01 k/uLKettering Health – Soin Medical CenterNucleated RBC/100 WBC (Bld) [Ratio]0.0 /100 WBCKettering Health – Soin Medical CenterPlatelet mean volume (Bld) [Entitic vol]9.3 fL9.0 - 12.7 fLCSouthern [place] Medical CenterPlatelets (Bld) [#/Vol]281 10*3/uL150 - 400 k/uLKettering Health – Soin Medical CenterRBC (Bld) [#/Vol]4.42 10*6/uL4.20 - 6.00 m/uLKettering Health – Soin Medical CenterWBC (Bld) [#/Vol]6.11 10*3/uL3.70 - 11.00 k/uLKettering Health – Soin Medical CenterComprehensive metabolic 2000 panelon 33-88-6012Qzgnooj [Mass/Vol]4.6 g/dL3.9 - 4.9 g/dLFlom ClinicALP [Catalytic activity/Vol]119 U/LHigh38 - 113 U/LCleveland ClinicALT [Catalytic activity/Vol]15 U/L10 - 54 U/LCleveland ClinicAnion gap [Moles/Vol]11 mmol/L9 - 18 mmol/LCleveland ClinicAST [Catalytic activity/Vol]21 U/L14 - 40 U/LCleveland ClinicBilirubin [Mass/Vol]0.5 mg/dL0.2 - 1.3 mg/dLFlom ClinicCalcium [Mass/Vol]9.8 mg/dL8.5 - 10.2 mg/dLFlom ClinicChloride [Moles/Vol]102 mmol/L97 - 105 mmol/LCleveland ClinicCO2 [Moles/Vol]23 mmol/L22 - 30 mmol/L [facility] Medical CenterCreatinine [Mass/Vol]1.16 mg/dL0.73 - 1.22 mg/dLKettering Health – Soin Medical Center Estimated Glomerular Filtration Rate72 mL/min/1.73m>=60 mL/min/1.73mCohiohealth van wert hospital ClinicGlucose [Mass/Vol]106 mg/oMXorc60 - 99 mg/dLKettering Health – Soin Medical CenterPotassium [Moles/Vol]4.7 mmol/L3.7 - 5.1 mmol/LCleveland ClinicProtein [Mass/Vol]7.4 g/dL 6.3 - 8.0 g/dLFlom ClinicSodium [Moles/Vol]136 mmol/L136 - 144 mmol/L [facility] Medical CenterUrea nitrogen [Mass/Vol]18 mg/dL9 - 24 mg/dLKettering Health – Soin Medical CenterCT Chest W contrast Joanna 28-58-9526AJNATOPXIP: 1. 3 mm right upper lobe nodule [...] any questions regarding this interpretation, please call [phone]. If you are unable to reach us at the number above, please feel free to contact [facility] eRadiology at [phone].DIVISION OF RADIOLOGY* * *Final Report* * * DATE OF EXAM: Apr 14 2022 11:45AM [facility] 0539 - CT CHEST W [...] clips within the gallbladder fossa are noted. Bilingual Kindergarten Teacher (topogram) images: No additional findings. DIVISION OF RADIOLOGYProvider, [facility] [place] - 04/15/2022 * * *Final Report* * * DATE OF EXAM: Apr 14 2022 11:45AM [facility] 0539 - CT CHEST W [...] clips within the gallbladder fossa are noted. Bilingual Kindergarten Teacher (topogram) images: No additional findings. IMPRESSION IMPRESSION: [...] any questions regarding this interpretation, please call [phone]. If you are unable to reach us at the number above, please feel free to contact [facility] eRadiology at [phone]. [facility] DaytonMRI SHOULDER RT WO CONon 35-67-2054FUZ SHOULDER RT WO CONEXAMINATION: MRI SHOULDER RT [...] Electronically authenticated by: BELLA PEREIRA Date: 2022-04-15 16:08Guernsey Memorial HospitalCREATININE BLDOrdered By: Corby Zaman on 58-69-4903Djxgvafaqb [Mass/Vol]1.16 mg/dL0.73 - 1.22 mg/dLKettering Health – Soin Medical CenterGFR/1.73 sq M.predicted among non-blacks MDRD (S/P/Bld) [Vol rate/Area]72 mL/min/{1.73_m2}- PINF [facility] CenterComment on above:Estimated Glomerular Filtration Rate (eGFR) is [...] GFR. Interpretation and review of laboratory resultsNormalCleveland Dayton Osteopathic HospitalCT Neck W contrast Joanna 23-77-3832UGHPUVFWCF: Treatment related changes in the right oropharynx. [...] any questions regarding this interpretation, please call [phone]. 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 Otherwise, bilateral parotid glands are unremarkable. Billboard Poster spaces appear normal. 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 Otherwise, bilateral parotid glands are unremarkable. Billboard Poster spaces appear normal. Infrahyoid Neck: Mucosal/mucosal edema [...] W contrast IVOrdered By: Ccf Provider on 03-19-9942Dwtfdjvam ClinicNo Panel Informationon 37-69-8165Lgfdwuhtx Study observation (narrative)[facility] Medical CenterEchocardiogram on 39-89-1830VvumwwjniowjzmqpDwgsy [address], [address] [facility], [place] [address] TRANSTHORACIC ECHOCARDIOGRAM REPORT Patient Name: ALEJO FLOYD Reading Physician: [id number] Carmen Neely MD, [facility] Study Date: 01/13/2022 Referring [id number] CARMEN NEELY Physician: MRN/PID: [id number] PCP: Gildardo Lacy Accession/Order#: [id number] [facility] Location: Date of : 1960 Fellow: Gender: M Nurse: Admit Date: Glass Engraver: Tamika Howard RDCS, RVT Height: 177.80 cm CC Report to: Weight: 74.39 kg Study Type: Echocardiogram BSA: 1.92 m2 Blood Pressure: 152 /80 mmHg Diagnosis/ICD: R94.31-Abnormal electrocardiogram [ECG] [EKG]; R06.00-Dyspnea, unspecified Indication: COPD, Tobacco Abuse, Peripheral Vascular Disease, Left Femoral Artery Stent, TIA, Depression Procedure/CPT: Echo Complete w Full Doppler-[id number] Study Detail: The following Echo studies were [...] 0.8 m/s (0.6-0.9m/s) PV Max P.3 mmHg [id number] Carmen Neely MD, [facility] Electronically signed on 01/14/2022 at 5:13:15 PM Final NormalFamily Health West HospitalEchocardiographyPlease click on the link to view the study imagesNormalNorthfield City Hospital [address] [place] Work Phone: Falls Screening (Age 18+)on 17-18-1270Kzvs risk assessmenta) No falls within the last yearNorthfield City Hospital [address] [place] Work Phone: [facility] CARDIAC STRESS/REST INJECTIONon 56-37-5385PJM CARDIAC STRESS/REST INJECTIONMRN: [id number] Patient Name: ALEJO FLOYD STUDY: MYOCARDIAL PERFUSION STRESS TEST WITH LEXISCAN Performing facility: [facility], [address] [place] [address], [address] Provider: Carmen Neely MD, [facility] PCP: Dr. Caren Lacy Supervising provider: Grisel Woods MD, [facility] INDICATION: Abnormal EKG; Dyspnea HISTORY: Gender: M; Age: 61 y/o ; Height: 177.8 cm; Weight: 74.8206991 kg. Abnormal EKG; SOB; COPD; PVD TIA Throat Cancer Currently smoking. COMPARISON: No comparison. ACCESSION NUMBER(S): [id number]; [id number]; [id number] ORDERING CLINICIAN: CARMEN NEELY TECHNIQUE: ONE DAY [...] available for comparison. Electronically signed by: Orlin VALENTINSan Luis Valley Regional Medical CenterNo Panel Informationon 44-50-5855FbdtbmSAMurray County Medical Center 600 DO Work Phone: GLUCOSE, BLOOD (POC)on 00-35-8748Snlkqqk [Mass/Vol]102 mg/hKEoelcmqz94 - 99 mg/dLKettering Health – Soin Medical CenterComment on above:Location:[facility], [address] [place] [address] , [place], [place], [facility] The Accu-Chek Inform II glucose meter has [...] above situations. Interpretation and review of laboratory resultsAbnormalCFostoria City HospitalPET+CT Guidance for localization of tumor of Skull base to mid-thigh-- W 18F-FDG Joanna 19-91-2474BNINGYBTZL: 1. NECK: * No definite FDG avid [...] any questions regarding this interpretation, please call [phone]. If you are unable to reach us at the number above, please feel free to contact [facility] Hospitaliology at [phone].DIVISION OF RADIOLOGY* * *Final Report* * * [...] possibly secondary to muscle spasm or posture. Bilingual Kindergarten Teacher (topogram) images: No additional findings. DIVISION OF RADIOLOGYProvider, [facility] [place] - 12/23/2021 * * *Final Report* * [...] possibly secondary to muscle spasm or posture. Bilingual Kindergarten Teacher (topogram) images: No additional findings. IMPRESSION IMPRESSION: [...] any questions regarding this interpretation, please call [phone]. If you are unable to reach us at the number above, please feel free to contact [facility] eRadiology at [phone]. [facility] So[facility] Medical CenterRadiology Study observation (narrative)[facility]+CT Guidance for localization of tumor of Skull base to mid-thigh-- W 18F-FDG IV Ordered By: Ccf Provider on [id number] [facility] Center Screening (Age 18+) on 28-89-1650Xysuq depression screening assessmentYesMKittitas Valley Healthcare [facility] [place] 250 DO Work Phone: Fall risk assessmentc) Not medically indicatedM[facility] 250 DO Work Phone: Tobacco use status CPHSa) YesM[facility] [place] 250 DO Work Phone: Falls Screening (Age 18+)YesM[facility] [place] 250 DO Work Phone: Falls Screening (Age 18+)1-Several daysM[facility] 250 DO Work Phone: Falls Screening (Age 18+)3-Nearly every dayMason [facility] Hospital [facility] 250 DO Work Phone: Falls Screening (Age 18+)0-Not at allMason General Hospital [facility]-[place] 250 DO Work Phone: Falls Screening (Age 18+)Somewhat DifficultMason [facility] Hospital [facility] 250 DO Work Phone: Office Visit (Cardiology)on 04-58-6309Xksllv-up visit Diagnoses/Problems Assessed Dyspnea (786.09) (R06.00) Abnormal EKG (794.31) (R94.31) PVD (peripheral vascular disease) (443.9) (I73.9) TIA (transient ischemic attack) (435.9) (G45.9) Body mass index (BMI) of 23.0 to 23.9 in adult (V85.1) (Z68.23) Current smoker (305.1) (F17.200) 1 pack of cigarettes every 4-5 days Depression (311) (F32.A) Orders Abnormal EKG, Dyspnea Echocardiogram; Status:Hold For - Scheduling,Retrospective Authorization; Requested for:[id number]; NM Cardiac Stress/Rest Nuclear Med Order; Status:Hold For - Scheduling,Retrospective Authorization; Requested for:[id number]; Radiologist to Determine Optimal Study : Y [...] we can help. You may also call 1-490-[phone] for free resources and assistance.; Status:Complete - Retrospective Authorization; Done: 28Orb6273 Tobacco Use Screening; Status:Complete; Done: 11Lyj2425 Unlinked Stop: amLODIPine Besylate 5 MG Oral [...] records from Dr. Shyanne Najera MD from [facility] Follow up in 6 months IArlette LPN, am scribing for and in the presence of, Dr. Carmen Neely MD Chief Complaint ALEJO FLOYD is being seen for a consultation for SRE. 61-year-old -Afghan who is in my office for the first time to establish relationship with cardiology. The patient has history of active tobacco abuse and PAD involving mostly the left femoral artery where he had stenting done several years ago in [place]. He has no previous cardiac catheterizations or [...] not included)...NormalUH Touchworks US ARTERY LEG BILon 48-21-2574KI ARTERY LEG BILEXAMINATION: US ARTERY LEG BEBA [...] Electronically authenticated by: BELLA PEREIRA Date: 2021-11-26 07:46[facility] LSKING WO CONon [id number] KHANG WO CONEXAM: CT KHANG WO CON [...] Electronically authenticated by: DARIEN HARP Date: 2021-11-20 10:19[facility] URINE PROFILEon 73-69-3431Ffswzxqnr Ql (U)NegativeNormal NEGATIVEKettering Health Main CampusComment on above:Performed By: #### ERUR #### [facility] [address] [address] [address] Herb Bryant (U)CLEARNormalCLEARKettering Health Main CampusComment on above: Performed By: #### ERUR #### [facility] [address] [address] [address] Herb Biswas (U)YELLOWNormalYELLOWKettering Health Main CampusComment on above: Performed By: #### ERUR #### [facility] [address] [place] [address] Dr. Herb Tee micrscopic examination will be performed if indicated. NormalKettering Health Main CampusCommymichigan medical center on above:Performed By: #### ERUR #### [facility] [address] [place] [address] Dr. Herb JonesGlucose Ql (U)NegativeNormalNEGATIVEKettering Health Main CampusComment on above:Performed By: #### ERUR #### [facility] [address] [address] [address] Herb JonesHemoglobin Ql (U)NegativeNormalNEGATIVECleveland Clinic Lutheran Hospital on above:Performed By: #### ERUR #### [facility] [address] [place] [address] Dr. Herb JonesKetones Ql (U)NegativeNormalNEGATIVEKettering Health Main CampusComment on above:Performed By: #### ERUR #### [facility] [address] [place] [address] Dr. Herb JonesLEUKOCYTESNegativeNormalNEGATIVEKettering Health Main CampusCommymichigan medical center on above:Performed By: #### ERUR #### [facility] [address] [place] [address] Dr. Herb JonesNitrite Ql (U)NegativeNormalNEGATIVEKettering Health Main CampusComment on above:Performed By: #### ERUR #### [facility] [address] [address] [address] Herb JonespH (U)7.0 [pH]Normal5-9Kettering Health Main CampusComment on above: Performed By: #### ERUR #### [facility] [address] [place] [address] Dr. Herb JonesSPEC GRAVITY1.834Ehbuvq9.005-<=1.025The Children'S Hospital For RehabilitationComment on above:Performed By: #### ERUR #### [facility] [address] [place] [address] Dr. Herb Freeman PROTEINNegativeNormalNEGATIVE/ TRACEThe [facility] Comment on above:Performed By: #### ERUR #### [facility] [address] [place] [address] Dr. Herb Pal MICRO INDNOT INDICATEDNormalThe Children'S Hospital For RehabilitationComment on above:Performed By: #### ERUR #### [facility] [address] [place] [address] Dr. Herb JonesUrobilinogen Qn (U)4 {Shon'U}/dLAbnormal0.2 - 1.0The [facility]S Hospital For RehabilitationComment on above:Performed By: #### ERUR #### [facility] [address] [place] [address] Dr. Herb Dean METABOLIC PANELon 76-56-8115Kkjzype [Mass/Vol]8.6 mg/dL Normal8.6-10.3The TriHealthComment on above:Order Comment: No: Do not add to previous drawPerformed By: #### 14742, 73246, 40911 #### [facility] [address] [place] [address], USAChloride [Moles/Vol]108 mmol/JLufb27-449Xvs TriHealthComment on above:Order Comment: No: Do not add to previous drawPerformed By: #### 02490, 76520, 68463 #### [facility] [address] [place] [address], USACO2 [Moles/Vol]20 mmol/FEyy91-42Bow TriHealthComment on above:Order Comment: No: Do not add to previous draw Performed By: #### 73034, 80998, 10301 #### [facility] [address] [place] [address], USACreatinine [Mass/Vol]0.83 mg/dLNormal0.70-1.30The TriHealthComment on above:Order Comment: No: Do not add to previous drawPerformed By: #### 06146, 16662, 08730 #### [facility] [address] [place] [address], USAGFR/1.73 sq M.predicted among blacks MDRD (S/P/Bld) [Vol rate/Area]mL/min/{1.73_m2}Normal>60The [facility] Comment on above:Order Comment: No: Do not add to previous drawPerformed By: #### 41376, 17102, 80087 #### [facility] [address] [place] [address], USAGFR/1.73 sq M.predicted among non-blacks MDRD (S/P/Bld) [Vol rate/Area]mL/min/{1.73_m2}Normal>60The [facility] Comment on above:Order Comment: No: Do not add to previous drawPerformed By: #### 55364, 50133, 65627 #### [facility] [address] [place] [address], USAGlucose [Mass/Vol]71 mg/aIIaeghy90-998Rjt TriHealthComment on above:Order Comment: No: Do not add to previous drawPerformed By: #### 00606, 61892, 13902 #### [facility] [address] [place] [address], USAPotassium [Moles/Vol]3.2 mmol/LLow3.5-5.1The TriHealthComment on above:Order Comment: No: Do not add to previous drawPerformed By: #### 97890, 65434, 50361 #### [facility] [address] [address], USASodium [Moles/Vol]140 mmol/SYpyntj634-303Biw TriHealthComment on above:Order Comment: No: Do not add to previous drawPerformed By: #### 96969, 66813, 64629 #### [facility] [address] [address], USAUrea nitrogen [Mass/Vol]21 mg/dLNormal7-25The TriHealthComment on above:Order Comment: No: Do not add to previous drawPerformed By: #### 15319, 58691, 72769 #### [facility] [address] [facility] [place] [address], USACBC W/DIFFon 44-21-8230JDZ IMM GRANS0.0 10*3/uLNormal 0.0-0.2The TriHealthComment on above:Order Comment: No: Do not add to previous drawPerformed By: #### 15327 #### [facility] [address] [facility] [place] [address], USAABS NEUTROPHILS2.3 10*3/uLNormal1.6-7.6The TriHealthComment on above:Order Comment: No: Do not add to previous drawPerformed By: #### 93353 #### [facility] [address] [address], USABasophils (Bld) [#/Vol]0.0 10*3/uLNormal0.0-0.2The TriHealthComment on above:Order Comment: No: Do not add to previous drawPerformed By: #### 78633 #### [facility] [address] [address], USABasophils/100 WBC (Bld)0.3 %Normal0.0-1.0The TriHealthComment on above:Order Comment: No: Do not add to previous drawPerformed By: #### 17924 #### [facility] [address] [place] [address], USAEosinophils (Bld) [#/Vol]0.0 10*3/uLNormal0.0-0.5The TriHealthComment on above:Order Comment: No: Do not add to previous drawPerformed By: #### 36371 #### [facility] [address] [address], USAEosinophils/100 WBC (Bld)0.5 %Normal0.0-6.0The TriHealthComment on above:Order Comment: No: Do not add to previous drawPerformed By: #### 53438 #### [facility] [address] [address], USAErythrocyte distribution width (RBC) [Ratio]17.2 %High 11.5-15.0The TriHealthComment on above:Order Comment: No: Do not add to previous drawPerformed By: #### 06568 #### [facility] [address] [address], USAHematocrit (Bld) [Volume fraction]32.6 %Low39.0-50.0The TriHealthComment on above:Order Comment: No: Do not add to previous drawPerformed By: #### 82245 #### [facility] [address] [address], USAHemoglobin (Bld) [Mass/Vol]10.7 g/dLLow13.0-17.0The TriHealthComment on above:Order Comment: No: Do not add to previous drawPerformed By: #### 96743 #### [facility] [address] [address], USAIMMATURE GRANS0.3 %Normal0.0-1.0The TriHealthComment on above:Order Comment: No: Do not add to previous draw Performed By: #### 51184 #### [facility] [address] [place] [address], USALymphocytes (Bld) [#/Vol]0.8 10*3/uLLow1.2-4.0The TriHealthComment on above:Order Comment: No: Do not add to previous drawPerformed By: #### 07712 #### [facility] [address] [place] [address], [facility]IAL MEDICAL CENTERLymphocytes/100 WBC (Bld)21.9 %Bivovu49.0-45.0The TriHealthComment on above:Order Comment: No: Do not add to previous drawPerformed By: #### 03935 #### [facility] [address] [place] [address], [facility] (RBC) [Entitic mass]33.9 suSrvk58.0-33.0The TriHealthComment on above:Order Comment: No: Do not add to previous drawPerformed By: #### 00477 #### [facility] [address] [place] [address], [facility] (RBC) [Mass/Vol]32.8 g/nJQlopjx66.0-35.0The TriHealthComment on above:Order Comment: No: Do not add to previous drawPerformed By: #### 30327 #### [facility] [address] [facility] [place] [address], [facility] (RBC) [Entitic vol]103.2 kLLsts99.0-98.0The TriHealthComment on above:Order Comment: No: Do not add to previous drawPerformed By: #### 75700 #### [facility] [address] [place] [address], USAMonocytes (Bld) [#/Vol]0.5 10*3/uLNormal0.1-1.0The TriHealthComment on above:Order Comment: No: Do not add to previous drawPerformed By: #### 21041 #### [facility] [address] [place] [address], ZBBQNOUO71.9 %High5.0-12.0The TriHealthComment on above:Order Comment: No: Do not add to previous drawPerformed By: #### 52475 #### [facility] [address] [place] [address], USANeutrophils/100 WBC (Bld)63.1 %Bmujlj97.0-72.0The TriHealthComment on above:Order Comment: No: Do not add to previous drawPerformed By: #### 59424 #### [facility] [address] [place] [address], USANucleated RBC/100 WBC (Bld) [Ratio]0 %Normal0-0The TriHealthComment on above:Order Comment: No: Do not add to previous drawPerformed By: #### 41907 #### [facility] [address] [place] [address], USAPLAT IYO669 10*3/eAAvjoyk886-977Nbo TriHealthComment on above:Order Comment: No: Do not add to previous draw Performed By: #### 36461 #### [facility] [address] [place] [address], USARBC (Bld) [#/Vol]3.16 10*6/uLLow4.20-5.70The TriHealthComment on above:Order Comment: No: Do not add to previous drawPerformed By: #### 24971 #### [facility] [address] [place] [address], USAWBC (Bld) [#/Vol]3.66 10*3/uLLow4.00-10.60The TriHealthComment on above:Order Comment: No: Do not add to previous drawPerformed By: #### 03681 #### [facility] [address] [place] [address], USAMAGNESIUM BLOODon 64-75-5436Blsknmzpo [Mass/Vol]1.8 mg/dL Low1.9-2.7The TriHealthComment on above:Order Comment: No: Do not add to previous drawPerformed By: #### 09077, 81582, 81964 #### [facility] [address] [facility] [place] [address], USAPHOSPHORUS BLOODon 60-96-3075Qeytezcrm [Mass/Vol]1.8 mg/dL Low2.5-5.0The TriHealthComment on above:Order Comment: No: Do not add to previous drawPerformed By: #### 05005, 74118, 94891 #### [facility] [address] [facility] [place] [address], USAAPTTon 05-42-1465hUXO Coag (Bld) [Time]25.3 sNormal 25.0-35.0The TriHealthComment on above:Order Comment: No: Do not add [...] BE USED FOR THIS PURPOSE.Performed By: #### 98799, 83809, 88248 #### [facility] [address] [facility] [place] [address], USABASIC METABOLIC PANELon 78-59-9418Xlbpgns [Mass/Vol]9.0 mg/dLNormal8.6-10.3The TriHealthComment on above:Order Comment: No: Do not add to previous drawPerformed By: #### 55969, 42659, 60055 #### [facility] [address] [place] [address], USAChloride [Moles/Vol]104 mmol/PAmqzaz66-273Iyb TriHealthComment on above:Order Comment: No: Do not add to previous drawPerformed By: #### 94159, 28334, 93342 #### [facility] [address] [place] [address], USACO2 [Moles/Vol]23 mmol/SLxctvo90-63Gnx TriHealthComment on above:Order Comment: No: Do not add to previous draw Performed By: #### 73673, 64061, 40374 #### [facility] [address] [place] [address], USACreatinine [Mass/Vol]1.29 mg/dLNormal0.70-1.30The TriHealthComment on above:Order Comment: No: Do not add to previous drawPerformed By: #### 99698, 32375, 51387 #### [facility] [address] [place] [address], USAeGFR- non- Hzmcjcqz60 ml/min/1.73sq mAbnormal>60The TriHealthComment on above:Order Comment: No: Do not add to previous drawPerformed By: #### 08005, 28033, 37254 #### [facility] [address] [place] [address], USAGFR/1.73 sq M.predicted among blacks MDRD (S/P/Bld) [Vol rate/Area]mL/min/{1.73_m2}Normal>60The [facility] Comment on above:Order Comment: No: Do not add to previous drawPerformed By: #### 26658, 92115, 54381 #### [facility] [address] [place] [address], USAGlucose [Mass/Vol]131 mg/sSGdak34-062Ncy TriHealthComment on above:Order Comment: No: Do not add to previous drawPerformed By: #### 82821, 19128, 30889 #### [facility] [address] [facility] [place] [address], USAPotassium [Moles/Vol]3.1 mmol/LLow3.5-5.1The TriHealthComment on above:Order Comment: No: Do not add to previous drawPerformed By: #### 03565, 68068, 89550 #### [facility] [address] [facility] [place] [address], USASodium [Moles/Vol]141 mmol/NQpbxkx184-537Jdm TriHealthComment on above:Order Comment: No: Do not add to previous drawPerformed By: #### 25222, 52625, 34640 #### [facility] [address] [facility] [place] [address], USAUrea nitrogen [Mass/Vol]40 mg/dLHigh7-25The TriHealthComment on above:Order Comment: No: Do not add to previous drawPerformed By: #### 64310, 83917, 51873 #### [facility] [address] [facility] [place] [address], MEM[facility]IAL MEDICAL CENTERCBC W/DIFFon 65-59-6198SRB IMM GRANS0.0 10*3/uLNormal 0.0-0.2The TriHealthComment on above:Performed By: #### 16834, 61894, 59134 #### [facility] [address] [facility] [place] [address], USAABS NEUTROPHILS3.2 10*3/uLNormal1.6-7.6The TriHealthComment on above:Performed By: #### 56926, 02167, 67818 #### [facility] [address] [facility] [place] [address], USABasophils (Bld) [#/Vol]0.0 10*3/uLNormal0.0-0.2The TriHealthComment on above:Performed By: #### 38362, 72304, 97720 #### [facility] [address] [address], USABasophils/100 WBC (Bld)0.5 %Normal0.0-1.0The TriHealthComment on above:Performed By: #### 72270, 45689, 50021 #### [facility] [address] [facility] [place] [address], USAEosinophils (Bld) [#/Vol]0.0 10*3/uLNormal0.0-0.5The TriHealthComment on above:Performed By: #### 34669, , 94890 #### [facility] [address] [facility] [place] [address], USAEosinophils/100 WBC (Bld)0.0 %Normal0.0-6.0The TriHealthComment on above:Performed By: #### 09032, , 22759 #### [facility] [address] [facility] [place] [address], USAErythrocyte distribution width (RBC) [Ratio]17.3 %High 11.5-15.0The TriHealthComment on above:Performed By: #### 77215, , 55609 #### [facility] [address] [facility] [place] [address], USAHematocrit (Bld) [Volume fraction]37.6 %Low39.0-50.0The TriHealthComment on above:Performed By: #### 11850, , 26313 #### [facility] [address] [facility] [place] [address], USAHemoglobin (Bld) [Mass/Vol]12.7 g/dLLow13.0-17.0The TriHealthComment on above:Performed By: #### 24702, 96018, 30462 #### [facility] [address] [facility] [place] [address], USAIMMATURE GRANS0.2 %Normal0.0-1.0The TriHealthComment on above:Performed By: #### 36310, , 12521 #### [facility] [address] [facility] [place] [address], USALymphocytes (Bld) [#/Vol]0.6 10*3/uLLow1.2-4.0The TriHealthComment on above:Performed By: #### 26503, , 97037 #### [facility] [address] [facility] [place] [address], USALymphocytes/100 WBC (Bld)13.1 %Low20.0-45.0The TriHealthComment on above:Performed By: #### 68682, , 05168 #### [facility] [address] [facility] [place] [address], MEMORIAL MEDICAL CENTERMCH (RBC) [Entitic mass]34.0 wnQoit88.0-33.0The TriHealthComment on above:Performed By: #### 91867, , 15344 #### [facility] [address] [facility] [place] [address], USAMCHC (RBC) [Mass/Vol]33.8 g/oNOazxld85.0-35.0The TriHealthComment on above:Performed By: #### 87389, , 75908 #### [facility] [address] [facility] [place] [address], USAMCV (RBC) [Entitic vol]100.5 pOFucw90.0-98.0The TriHealthComment on above:Performed By: #### 18686, 53331, 59365 #### [facility] [address] [place] [address], USAMonocytes (Bld) [#/Vol]0.5 10*3/uLNormal0.1-1.0The TriHealthComment on above:Performed By: #### 14528, 52083, 91650 #### [facility] [address] [place] [address], CUGEHPTW52.4 %Normal5.0-12.0The TriHealthCommymichigan medical center on above:Performed By: #### 43517, 58442, 51709 #### [facility] [address] [place] [address], USANeutrophils/100 WBC (Bld)74.8 %High40.0-72.0The TriHealthComment on above:Performed By: #### 26274, 93360, 21878 #### [facility] [address] [place] [address], USANucleated RBC/100 WBC (Bld) [Ratio]0 %Normal0-0The TriHealthCommymichigan medical center on above:Performed By: #### 80370, 04661, 29966 #### [facility] [address] [place] [address], USAPLAT YBW782 10*3/oTGcxger812-617Vsv TriHealthComment on above:Performed By: #### 07253, 23601, 25136 #### [facility] [address] [address], USARBC (Bld) [#/Vol]3.74 10*6/uLLow4.20-5.70The TriHealthComment on above:Performed By: #### 29773, 61329, 73962 #### [facility] [address] [place] [address], USAWBC (Bld) [#/Vol]4.28 10*3/uLNormal4.00-10.60The TriHealthComment on above:Performed By: #### 71438, 63240, 35456 #### [facility] [address] [place] [address], USALACTATE WITH REFLEXon 25-20-1122Ppxwqpa [Moles/Vol]1.2 mmol/LNormal.5-2.2The TriHealthComment on above:Order Comment: No: Do not add to previous drawPerformed By: #### 59822 #### [facility] [address] [place] [address], USALIVER BATTERYon 48-07-3546Ysjhqvn [Mass/Vol]4.0 g/dLNormal 3.5-5.7The TriHealthComment on above:Order Comment: No: Do not add to previous drawPerformed By: #### 85128, 88450, 52999 #### [facility] [address] [place] [address], USAALKALINE [id number] IU/ELizpfr27-290Lbf TriHealthComment on above:Order Comment: No: Do not add to previous draw Performed By: #### [id number], [id number], [id number] #### [facility] [address] [place] [address], [place]ALT [Catalytic activity/Vol]15 U/LNormal7-52The TriHealthComment on above:Order Comment: No: Do not add to previous drawPerformed By: #### [id number], [id number], [id number] #### [facility] [address] [place] [address], USAAST [Catalytic activity/Vol]16 U/TXmonrf65-21Yds TriHealthComment on above:Order Comment: No: Do not add to previous drawPerformed By: #### [id number], [id number], [id number] #### [facility] [address] [place] [address], USABilirubin [Mass/Vol]1.6 mg/dLHigh0.3-1.0The TriHealthComment on above:Order Comment: No: Do not add to previous drawPerformed By: #### [id number], [id number], [id number] #### [facility] [address] [place] [address], USABilirubin.direct [Mass/Vol]0.5 mg/dLHigh0.0-0.2The TriHealthComment on above:Order Comment: No: Do not add to previous drawPerformed By: #### 64866, 07437, [id number] #### [facility] [address] [place] [address], USAProtein [Mass/Vol]7.0 g/dLNormal6.0-8.3The TriHealthComment on above:Order Comment: No: Do not add to previous drawPerformed By: #### 28524, 35535, 60952 #### [facility] [address] [place] [address], USAMAGNESIUM BLOODon [id number] [Mass/Vol]2.4 mg/dL Normal1.9-2.7The TriHealthComment on above:Order Comment: No: Do not add to previous drawPerformed By: #### 85241 #### [facility] [address] [place] [address], USAMagnesium [Mass/Vol]1.9 mg/dLNormal1.9-2.7The TriHealthComment on above:Order Comment: No: Do not add to previous drawPerformed By: #### 31343, 04667, 79643 #### [facility] [address] [place] [address], USAPHOSPHORUS BLOODon 52-08-0705Rzyvihjal [Mass/Vol]2.8 mg/dL Normal2.5-5.0The TriHealthComment on above:Order Comment: No: Do not add to previous drawPerformed By: #### 60564, 95624, 61829 #### [facility] [address] [place] [address], USAPROTHROMBIN TIMEon 29-14-5478KBC Coag (PPP) [Relative time] 1.16 {INR}Normal0.91-1.16The TriHealthComment on above:Order Comment: No: Do not add to previous drawResult Comment: [facility] RECOMMENDED INR FOR WARFARIN THERAPY ------- CONDITION [...] OPTIMAL THERAPEUTIC RANGE. CHEST 1995;108:231S-246S.Performed By: #### 61634, , 01625 #### [facility] [address] [place] [address], USAPT Coag (PPP) [Time]14.7 hEiwhgb46.3-14.8The TriHealthComment on above:Order Comment: No: Do not add to previous drawResult Comment: ALL RESULTS MUST BE INTERPRETED WITH RESPECT TO BLOOD DRAWING ARTIFACT OR DILUTION ERROR OF ANTICOAGULANT AT THE TIME OF SAMPLING.Performed By: #### 72539, , 57524 #### [facility] [address] [place] [address], [facility] Auto Differential panel (Bld)on [id number] Immature Gran0.04 k/uL<0.10 k/uLCleselect medical ohiohealth rehabilitation hospital [facility]ublin ClinicBasophils (Bld) [#/Vol]10*3/uL <0.11 k/uLCleselect medical ohiohealth rehabilitation hospital - [facility]ublin ClinicBasophils/100 WBC (Bld)0.2 %[facility] Differential cell count method Nom (Bld)AutoCleveland ClinicEosinophils (Bld) [#/Vol]10*3/uL<0.46 k/uLCleSumma HealthEosinophils/100 WBC (Bld)0.2 %[facility] CenterErythrocyte distribution width (RBC) [Ratio]18.2 %High11.5 - 15.0 % [facility] CenterHematocrit (Bld) [Volume fraction]40.7 %39.0 - 51.0 %[facility] CenterHemoglobin (Bld) [Mass/Vol]13.5 g/dL13.0 - 17.0 g/dLKettering Health [facility] Immature Gran %0.6 %[facility] CenterLymphocytes (Bld) [#/Vol]0.67 10*3/uLLow1.00 - 4.00 k/uLKettering Health – Soin Medical CenterLymphocytes/100 WBC (Bld)10.9 %[facility] HospitalH (RBC) [Entitic mass]33.8 pg26.0 - 34.0 pgCleveland Meeker Memorial HospitalHC (RBC) [Mass/Vol] 33.2 g/dL30.5 - 36.0 g/dLNorwalk Memorial HospitalV (RBC) [Entitic vol]102.0 lDNkvs49.0 - 100.0 fLCleveland ClinicMonocytes (Bld) [#/Vol]0.38 10*3/uL<0.87 k/uLKettering Health – Soin Medical CenterMonocytes/100 WBC (Bld)6.2 %[facility] CenterNeutrophils (Bld) [#/Vol]5.06 10*3/uL1.45 - 7.50 k/uLCleSumma HealthNeutrophils/100 WBC (Bld)81.9 %[facility] CenterNucleated RBC (Bld) [#/Vol]10*3/uL<0.01 k/uLFlom ClinicNucleated RBC/100 WBC (Bld) [Ratio]0.0 /100 WBCFlom ClinicPlatelet mean volume (Bld) [Entitic vol]8.7 fLLow9.0 - 12.7 fLCleveland ClinicPlatelets (Bld) [#/Vol]268 10*3/uL150 - 400 k/uLKettering Health – Soin Medical CenterRBC (Bld) [#/Vol]3.99 10*6/uLLow4.20 - 6.00 m/uLFlom ClinicWBC (Bld) [#/Vol]6.17 10*3/uL3.70 - 11.00 k/uLKettering Health – Soin Medical CenterComprehensive metabolic 2000 panelon [id number] [Mass/Vol]5.1 g/dL High3.9 - 4.9 g/dLFlom ClinicALP [Catalytic activity/Vol]104 U/L38 - 113 U/LCleveland ClinicALT [Catalytic activity/Vol]17 U/L10 - 54 U/LCleveland [facility] Anion gap [Moles/Vol]17 mmol/L9 - 18 mmol/LCleveland ClinicAST [Catalytic activity/Vol][facility] CenterBilirubin [Mass/Vol]1.3 mg/dL0.2 - 1.3 mg/dL [facility] CenterCalcium [Mass/Vol]10.6 mg/dLHigh8.5 - 10.2 mg/dLKettering Health – [facility] Chloride [Moles/Vol]99 mmol/L97 - 105 mmol/LCleveland ClinicCO2 [Moles/Vol]20 mmol/LLow22 - 30 mmol/LCleveland [facility] HospitalCreatinine [Mass/Vol]1.91 mg/dLHigh0.73 - 1.22 mg/dLKettering Health – Soin Medical CenterEstimated Glomerular Filtration Rate40 mL/min/1.73m Low>=60 mL/min/1.73mCleveland [facility]fork [facility] HospitalGlucose [Mass/Vol]162 mg/iKFgdh93 - 99 mg/dL [facility] CenterPotassium [Moles/Vol]4.5 mmol/L3.7 - 5.1 mmol/LCleveland [facility] Protein [Mass/Vol]8.4 g/dLHigh6.3 - 8.0 g/dLSelect Medical Specialty Hospital - Cincinnati Northodium [Moles/Vol] 136 mmol/L136 - 144 mmol/LCleveland ClinicUrea nitrogen [Mass/Vol]35 mg/dLHigh9 - 24 mg/dLKettering Health – Soin Medical CenterCB W Auto Differential panel (Bld)on [id number] Immature Gran0.08 k/uL<0.10 k/uLFlom ClinicBasophils (Bld) [#/Vol]10*3/uL <0.11 k/uLKettering Health – Soin Medical CenterBasophils/100 WBC (Bld)0.2 %[facility] Differential cell count method Nom (Bld)AutoCleveland ClinicEosinophils (Bld) [#/Vol]0.05 10*3/uL<0.46 k/uLKettering Health – Soin Medical CenterEosinophils/100 WBC (Bld)0.6 % [facility] CenterErythrocyte distribution width (RBC) [Ratio]16.5 %High11.5 - 15.0 %[facility] CenterHematocrit (Bld) [Volume fraction]36.5 %Low39.0 - 51.0 % [facility] CenterHemoglobin (Bld) [Mass/Vol]11.9 g/dLLow13.0 - 17.0 g/dLKettering Health – Soin Medical CenterImmature Gran %0.9 %[facility] Medical CenterLymphocytes (Bld) [#/Vol]1.39 10*3/uL 1.00 - 4.00 k/uLKettering Health – Soin Medical CenterLymphocytes/100 WBC (Bld)15.6 %[facility] MCH (RBC) [Entitic mass]32.2 pg26.0 - 34.0 pgCleveland Meeker Memorial HospitalHC (RBC) [Mass/Vol]32.6 g/dL30.5 - 36.0 g/dLKettering Health – Soin Medical CenterMCV (RBC) [Entitic vol]98.6 fL80.0 - 100.0 fLCleveland Bigfork Valley HospitalMonocytes (Bld) [#/Vol]0.84 10*3/uL<0.87 k/uL [facility] CenterMonocytes/100 WBC (Bld)9.4 %[facility] Medical CenterNeutrophils (Bld) [#/Vol]6.52 10*3/uL1.45 - 7.50 k/uLKettering Health – Soin Medical CenterNeutrophils/100 WBC (Bld)73.3 %[facility] CenterNucleated RBC (Bld) [#/Vol]10*3/uL<0.01 k/uLKettering Health – [facility] Center Nucleated RBC/100 WBC (Bld) [Ratio]0.0 /100 WBCKettering Health – Soin Medical CenterPlatelet mean volume (Bld) [Entitic vol]9.6 fL9.0 - 12.7 fLCleveland ClinicPlatelets (Bld) [#/Vol]259 10*3/uL150 - 400 k/uLKettering Health – Soin Medical CenterRBC (Bld) [#/Vol]3.70 10*6/uLLow 4.20 - 6.00 m/uLKettering Health – Soin Medical CenterWBC (Bld) [#/Vol]8.90 10*3/uL3.70 - 11.00 k/uL [facility] CenterComprehensive metabolic 2000 panelon [id number] [Mass/Vol]4.5 g/dL3.9 - 4.9 g/dLFlom ClinicALP [Catalytic activity/Vol]84 U/L38 - 113 U/LCleveland ClinicALT [Catalytic activity/Vol]16 U/L10 - 54 U/L [facility] CenterAnion gap [Moles/Vol]15 mmol/L9 - 18 mmol/LCleveland ClinicAST [Catalytic activity/Vol][facility] CenterBilirubin [Mass/Vol]0.6 mg/dL0.2 - 1.3 mg/dLKettering Health – Soin Medical CenterCalcium [Mass/Vol]9.6 mg/dL8.5 - 10.2 mg/dLKettering Health – [facility] Chloride [Moles/Vol]106 mmol/LHigh97 - 105 mmol/LCleveland ClinicCO2 [Moles/Vol] 19 mmol/LLow22 - 30 mmol/LCleveland [facility] HospitalCreatinine [Mass/Vol]1.01 mg/dL0.73 - 1.22 mg/dLKettering Health – Soin Medical CenterEstimated Glomerular Filtration Rate85 mL/min/1.73m >=60 mL/min/1.73mCleveland Bigfork Valley HospitalGlucose [Mass/Vol]95 mg/dL74 - 99 mg/dL [facility] CenterPotassium [Moles/Vol]4.7 mmol/L3.7 - 5.1 mmol/LCleveland [facility] Protein [Mass/Vol]7.2 g/dL6.3 - 8.0 g/dLSelect Medical Specialty Hospital - [place] Northodium [Moles/Vol]140 mmol/L136 - 144 mmol/LCohiohealth van wert hospital ClinicUrea nitrogen [Mass/Vol]17 mg/dL9 - 24 mg/dLKettering Health – Soin Medical CenterCT CHEST W IVCONon [id number] CHEST W IVCON* * *Final Report* * * DATE OF EXAM: Jun 20 2021 3:43PM [facility] 0539 - CT CHEST W IVCON [...] seen and may be atrophied or absent. Bilingual Kindergarten Teacher (topogram) images: No additional findings. IMPRESSION: 1. [...] centrilobular emphysema with an upper lobe predominance. Business [employer] Program Chair: PSCJuan Luis Transcribe Date/Time: Jun 21 2021 5:58A Dictated by : DARIEN PARIKH MD This examination was interpreted and the report reviewed and electronically signed by: DARIEN PARIKH MD on Jun 21 2021 6:26AM EST [id number] HospitalCT NECK SOFT TISSUE W IVCONon [id number] NECK SOFT TISSUE W IVCON* * *Final Report* * * DATE OF EXAM: Jun 20 2021 3:43PM [facility] 0013 - CT NECK SOFT TISSUE [...] was performed concurrently and is dictated separately. Bilingual Kindergarten Teacher (topogram) images: No significant findings. 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 Residual pathologic right level II lymphadenopathy, suspect increased in size since PET/CT of 04/05/2021. No discrete new pathologic lymph nodes. Chronically occluded left ICA. Business Administration Program Chair: PSCB Transcribe Date/Time: Jun 20 2021 4:24P Dictated by : CASSIE WONG MD This examination was interpreted and the report reviewed and electronically signed by: CASSIE WONG MD on Jun 20 2021 4:45PM EST [id number] HealthcareHISTORY PHYSICALon [id number] PHYSICALHNO ID: [id number] Author: Ana Hernandez APRN.SPOTTER Service: ? Author Type: Nurse Practitioner Type: [...] (more content not included)...NormalMedina HospitalHISTORY PHYSICALHNO ID: [id number] Author: Ana Hernandez APRN.SPOTTER Service: ? Author Type: Nurse Practitioner Type: [...] vaccine (UNSPECIFIED) 08/01/2020 Imm Admin: COVID-19 vaccine (PFIZER-BIONTSparkbuy) 07/11/2020 Imm Admin: COVID-19 vaccine (PFIZER-BIONTECH) Only [...] fevers. Neurological: No history of TIA's, stroke, BOOK PACKER tumor, impaired sensorium, hemiplegia, paraplegia or quadraplegia. No neurological symptoms or problems. Respiratory: No history of current cough or dyspnea, or pneumonia in the past 6 weeks. No history of respiratory/pulmonary symptoms or problems. Cardiovascular: No history of HTN requiring medication, no history of angina, CHF, PR, cardiac surgery or stents. Denies rest pain, [...] HFA) 90 mc (more content not included)...NormalMedina American Fork HospitalSIC METABOLIC PANELon [id number] [Mass/Vol]8.6 mg/dLNormal 8.6-10.3The TriHealthComment on above:Order Comment: No: Do not add to previous drawPerformed By: #### 73839, 93807, 43276 #### [facility] [address] [place] [address], USAChloride [Moles/Vol]109 mmol/KJhsi26-820Wcg TriHealthComment on above:Order Comment: No: Do not add to previous drawPerformed By: #### 14435, 07083, 67861 #### [facility] [address] [place] [address], USACO2 [Moles/Vol]23 mmol/BChxnau66-23Kfe TriHealthComment on above:Order Comment: No: Do not add to previous draw Performed By: #### 51299, 57558, 17016 #### [facility] [address] [place] [address], USACreatinine [Mass/Vol]0.82 mg/dLNormal0.70-1.30The TriHealthComment on above:Order Comment: No: Do not add to previous drawPerformed By: #### 34610, 62245, 51033 #### [facility] [address] [place] [address], USAGFR/1.73 sq M.predicted among blacks MDRD (S/P/Bld) [Vol rate/Area]mL/min/{1.73_m2}Normal>60The [facility] Comment on above:Order Comment: No: Do not add to previous drawPerformed By: #### 56089, 58438, 34152 #### [facility] [address] [place] [address], USAGFR/1.73 sq M.predicted among non-blacks MDRD (S/P/Bld) [Vol rate/Area]mL/min/{1.73_m2}Normal>60The [facility] Comment on above:Order Comment: No: Do not add to previous drawPerformed By: #### 68144, 51068, 06498 #### [facility] [address] [place] [address], USAGlucose [Mass/Vol]117 mg/aSCced92-762Zib TriHealthComment on above:Order Comment: No: Do not add to previous drawPerformed By: #### 42078, 84605, 53594 #### [facility] [address] [place] [address], USAPotassium [Moles/Vol]3.4 mmol/LLow3.5-5.1The TriHealthComment on above:Order Comment: No: Do not add to previous drawPerformed By: #### 30612, 90606, 03473 #### [facility] [address] [place] [address], USASodium [Moles/Vol]139 mmol/VUjbiri720-518Ypy TriHealthComment on above:Order Comment: No: Do not add to previous drawPerformed By: #### 15502, 54723, 18313 #### [facility] [address] [place] [address], USAUrea nitrogen [Mass/Vol]12 mg/dLNormal7-25The TriHealthComment on above:Order Comment: No: Do not add to previous drawPerformed By: #### 75328, 20216, 54233 #### [facility] [address] [place] [address], USACBC COMPLETE BLOOD COUNTon 57-76-2423Dewpixcfaon distribution width (RBC) [Ratio]12.9 %Njuhqq59.5-15.0The TriHealthComment on above:Order Comment: No: Do not add to previous draw Performed By: #### 46973, 70486, 16236 #### [facility] [address] [place] [address], USAHematocrit (Bld) [Volume fraction]34.7 %Low39.0-50.0The TriHealthComment on above:Order Comment: No: Do not add to previous drawPerformed By: #### 20796, 72422, 43262 #### [facility] [address] [place] [address], [facility] CENTERHemoglobin (Bld) [Mass/Vol]11.3 g/dLLow13.0-17.0The TriHealthComment on above:Order Comment: No: Do not add to previous drawPerformed By: #### 31594, 60408, 28546 #### [facility] [address] [place] [address], [facility] (RBC) [Entitic mass]32.7 osNqpevd41.0-33.0The TriHealthComment on above:Order Comment: No: Do not add to previous drawPerformed By: #### 30139, 98216, 83527 #### [facility] [address] [place] [address], [facility] CENTERMCHC (RBC) [Mass/Vol]32.6 g/vOUownjn31.0-35.0The TriHealthComment on above:Order Comment: No: Do not add to previous drawPerformed By: #### 98212, 52326, 18352 #### [facility] [address] [place] [address], [facility] (RBC) [Entitic vol]100.3 fLVylt52.0-98.0The TriHealthComment on above:Order Comment: No: Do not add to previous drawPerformed By: #### 42937, 31281, 87391 #### [facility] [address] [place] [address], USANucleated RBC/100 WBC (Bld) [Ratio]0 %Normal0-0The TriHealthComment on above:Order Comment: No: Do not add to previous drawPerformed By: #### 71599, 68002, 94755 #### [facility] [address] [place] [address], USAPLAT GAD885 10*3/mTIetuif746-688Qxk TriHealthComment on above:Order Comment: No: Do not add to previous draw Performed By: #### 29872, 03812, 60977 #### [facility] [address] [place] [address], USARBC (Bld) [#/Vol]3.46 10*6/uLLow4.20-5.70The TriHealthComment on above:Order Comment: No: Do not add to previous drawPerformed By: #### 07988, 63223, 34656 #### [facility] [address] [place] [address], USAWBC (Bld) [#/Vol]7.24 10*3/uLNormal4.00-10.60The TriHealthComment on above:Order Comment: No: Do not add to previous drawPerformed By: #### 26152, 42115, 35062 #### [facility] [address] [place] [address], USAMAGNESIUM BLOODon 04-98-4052Dbkynirgz [Mass/Vol]1.7 mg/dL Low1.9-2.7The TriHealthComment on above:Order Comment: No: Do not add to previous drawPerformed By: #### 65694, 04203, 51081 #### [facility] [address] [place] [address], USAPHOSPHORUS BLOODon 03-79-9964Fdqkubvdn [Mass/Vol]1.7 mg/dL Low2.5-5.0The TriHealthComment on above:Order Comment: No: Do not add to previous drawPerformed By: #### 97240, 22738, 93366 #### [facility] [address] [place] [address], USABASIC METABOLIC PANELon 84-31-9550Bzktnmd [Mass/Vol]8.7 mg/dLNormal8.6-10.3The TriHealthComment on above:Order Comment: No: Do not add to previous drawPerformed By: #### 46671, 05437 #### [facility] [address] [place] [address], USAChloride [Moles/Vol]105 mmol/IMemxiw93-606Jpp TriHealthComment on above:Order Comment: No: Do not add to previous drawPerformed By: #### 17205, 33467 #### [facility] [address] [place] [address], USACO2 [Moles/Vol]19 mmol/YQqy16-72Par TriHealthComment on above:Order Comment: No: Do not add to previous draw Performed By: #### 14866, 02902 #### [facility] [address] [place] [address], USACreatinine [Mass/Vol]0.91 mg/dLNormal0.70-1.30The TriHealthComment on above:Order Comment: No: Do not add to previous drawPerformed By: #### 45406, 59485 #### [facility] [address] [place] [address], USAGFR/1.73 sq M.predicted among blacks MDRD (S/P/Bld) [Vol rate/Area]mL/min/{1.73_m2}Normal>60The [facility] Comment on above:Order Comment: No: Do not add to previous drawPerformed By: #### 72028, 59279 #### [facility] [address] [place] [address], USAGFR/1.73 sq M.predicted among non-blacks MDRD (S/P/Bld) [Vol rate/Area]mL/min/{1.73_m2}Normal>60The [facility] Comment on above:Order Comment: No: Do not add to previous drawPerformed By: #### 15757, 25209 #### [facility] [address] [place] [address], USAGlucose [Mass/Vol]63 mg/tKVkn71-224Iqo TriHealthComment on above:Order Comment: No: Do not add to previous draw Performed By: #### 57598, 38969 #### [facility] [address] [place] [address], USAPotassium [Moles/Vol]3.8 mmol/LNormal3.5-5.1The TriHealthComment on above:Order Comment: No: Do not add to previous drawPerformed By: #### 06792, 17326 #### [facility] [address] [place] [address], USASodium [Moles/Vol]139 mmol/NEjlxob211-205Znk TriHealthComment on above:Order Comment: No: Do not add to previous drawPerformed By: #### 40029, 79508 #### [facility] [address] [place] [address], USAUrea nitrogen [Mass/Vol]24 mg/dLNormal7-25The TriHealthComment on above:Order Comment: No: Do not add to previous drawPerformed By: #### 67673, 35528 #### [facility] [address] [place] [address], USACBC COMPLETE BLOOD COUNTon 41-33-4978Utzbdgepshx distribution width (RBC) [Ratio]13.0 %Jzcacy73.5-15.0The TriHealthComment on above:Order Comment: No: Do not add to previous draw Performed By: #### 78696, 06139, 87867 #### [facility] [address] [place] [address], USAHematocrit (Bld) [Volume fraction]35.3 %Low39.0-50.0The TriHealthComment on above:Order Comment: No: Do not add to previous drawPerformed By: #### 42359, 00686, 43876 #### [facility] [address] [place] [address], [facility] CENTERHemoglobin (Bld) [Mass/Vol]11.5 g/dLLow13.0-17.0The TriHealthComment on above:Order Comment: No: Do not add to previous drawPerformed By: #### 38235, 49759, 46210 #### [facility] [address] [place] [address], [facility] (RBC) [Entitic mass]32.8 woCzizdx37.0-33.0The TriHealthComment on above:Order Comment: No: Do not add to previous drawPerformed By: #### 48208, 41220, 92724 #### [facility] [address] [place] [address], [facility]C (RBC) [Mass/Vol]32.6 g/hQDibhvt71.0-35.0The TriHealthComment on above:Order Comment: No: Do not add to previous drawPerformed By: #### 37508, 34658, 21397 #### [facility] [address] [place] [address], [facility] (RBC) [Entitic vol]100.6 fWDvjf60.0-98.0The TriHealthComment on above:Order Comment: No: Do not add to previous drawPerformed By: #### 92433, 72284, 01619 #### [facility] [address] [place] [address], USANucleated RBC/100 WBC (Bld) [Ratio]0 %Normal0-0The TriHealthComment on above:Order Comment: No: Do not add to previous drawPerformed By: #### 81544, 37838, 42928 #### [facility] [address] [place] [address], USAPLAT HQO099 10*3/hNCagrhg587-116Uql TriHealthComment on above:Order Comment: No: Do not add to previous draw Performed By: #### 39317, 21067, 75752 #### [facility] [address] [place] [address], USARBC (Bld) [#/Vol]3.51 10*6/uLLow4.20-5.70The TriHealthComment on above:Order Comment: No: Do not add to previous drawPerformed By: #### 97208, 73996, 68779 #### [facility] [address] [place] [address], USAWBC (Bld) [#/Vol]7.96 10*3/uLNormal4.00-10.60The TriHealthComment on above:Order Comment: No: Do not add to previous drawPerformed By: #### 46356, 94141, 94167 #### [facility] [address] [place] [address], USAMAGNESIUM BLOODon 12-11-9012Dtvmqzlhz [Mass/Vol]1.8 mg/dL Low1.9-2.7The TriHealthComment on above:Order Comment: No: Do not add to previous drawPerformed By: #### [id number], [id number] #### [facility] [address] [place] [address], [place] GLUCOSE LABon 09-43-8859Yyxdntb [Mass/Vol]167 mg/dLHigh 70-100The TriHealthComment on above:Performed By: #### [id number], [id number], 20804 #### [facility] [address] [place] [address], USAABDOMEN 1 VWon [id number] 1 [facility] Department of Radiology [address] [place] [id number] Patient Name: ALEJO FLOYD : 1960 Sex: M Age: Race: Black Pt. Location: [facility] Patient Status: I Ordered Date: 05/28/2021 [...] obstruction. Electronically signed: Kenzie Chi. Transcribed by: [email or web address], User Resident: Electronically Signed by: KENZIE CHI @ 05/28/2021 11:00 AMNormalThe TriHealthComment on above:Order Comment: No: Do not add to previous drawBASIC METABOLIC PANELon 16-70-6765Zwypsel [Mass/Vol]9.0 mg/dLNormal8.6-10.3The TriHealthComment on above:Order Comment: No: Do not add to previous drawPerformed By: #### [id number], [id number], 35721 #### [facility] [address] [place] [address], USAChloride [Moles/Vol]103 mmol/PEeqygr26-649Qhu TriHealthComment on above:Order Comment: No: Do not add to previous drawPerformed By: #### [id number], [id number], 17531 #### [facility] [address] [place] [address], [place]ACO2 [Moles/Vol]19 mmol/HDnw77-63Mon TriHealthComment on above:Order Comment: No: Do not add to previous draw Performed By: #### [id number], 22077, 69141 #### [facility] [address] [place] [address], USACreatinine [Mass/Vol]1.38 mg/dLHigh0.70-1.30The TriHealthComment on above:Order Comment: No: Do not add to previous drawPerformed By: #### 95340, 39377, 46961 #### [facility] [address] [place] [address], USAeGFR- non- Keminwsi21 ml/min/1.73sq mAbnormal>60The TriHealthComment on above:Order Comment: No: Do not add to previous drawPerformed By: #### 07091, 22886, 19328 #### [facility] [address] [place] [address], USAGFR/1.73 sq M.predicted among blacks MDRD (S/P/Bld) [Vol rate/Area]mL/min/{1.73_m2}Normal>60The [facility] Comment on above:Order Comment: No: Do not add to previous drawPerformed By: #### 92412, 63233, 22855 #### [facility] [address] [place] [address], USAGlucose [Mass/Vol]79 mg/fCTuumeh66-414Iyi TriHealthComment on above:Order Comment: No: Do not add to previous drawPerformed By: #### 63428, 49878, 30428 #### [facility] [address] [place] [address], USAPotassium [Moles/Vol]3.9 mmol/LNormal3.5-5.1The TriHealthComment on above:Order Comment: No: Do not add to previous drawPerformed By: #### 87868, 89515, 64221 #### [facility] [address] [facility] [place] [address], USASodium [Moles/Vol]138 mmol/KTbepok662-154Tze TriHealthComment on above:Order Comment: No: Do not add to previous drawPerformed By: #### 55307, 66481, 28802 #### [facility] [address] [place] [address], USAUrea nitrogen [Mass/Vol]38 mg/dLHigh7-25The TriHealthComment on above:Order Comment: No: Do not add to previous drawPerformed By: #### 62800, 78693, 81497 #### [facility] [address] [facility] [place] [address], USACBC W/DIFFon 28-51-1329UAX NEUTROPHILS5.9 10*3/uLNormal 1.6-7.6The TriHealthComment on above:Order Comment: No: Do not add to previous drawPerformed By: #### 90855, 69762, 10155 #### [facility] [address] [facility] [address] [place] [address], USAANISOModerateNormalThe [facility] Comment on above:Order Comment: No: Do not add to previous drawPerformed By: #### 49769, 44525, 71759 #### [facility] [address] [facility] [place] [address], USABasophils (Bld) [#/Vol]0.0 10*3/uLNormal0.0-0.2The TriHealthComment on above:Order Comment: No: Do not add to previous drawPerformed By: #### 67840, 00318, 59220 #### [facility] [address] [place] [address], USABasophils/100 WBC (Bld)0.0 %Normal0.0-1.0The TriHealthComment on above:Order Comment: No: Do not add to previous drawPerformed By: #### 38450, 81564, 64688 #### [facility] [address] [facility] [place] [address], USAEosinophils (Bld) [#/Vol]0.0 10*3/uLNormal0.0-0.5The TriHealthComment on above:Order Comment: No: Do not add to previous drawPerformed By: #### 39260, 82358, 53117 #### [facility] [address] [facility] [place] [address], USAEosinophils/100 WBC (Bld)0.0 %Normal0.0-6.0The TriHealthComment on above:Order Comment: No: Do not add to previous drawPerformed By: #### 95149, 32711, 42702 #### [facility] [address] [facility] [place] [address], USAErythrocyte distribution width (RBC) [Ratio]13.0 %Normal 11.5-15.0The TriHealthComment on above:Order Comment: No: Do not add to previous drawPerformed By: #### 90108, 49322, 31301 #### [facility] [address] [facility] [place] [address], USAGIANT PLATELETSPresentNormalThe TriHealthComment on above:Order Comment: No: Do not add to previous draw Performed By: #### 54427, 95941, 57713 #### [facility] [address] [place] [address], USAHematocrit (Bld) [Volume fraction]40.4 %Qzquac25.0-50.0The TriHealthComment on above:Order Comment: No: Do not add to previous drawPerformed By: #### 82566, 75189, 62291 #### [facility] [address] [place] [address], USAHemoglobin (Bld) [Mass/Vol]12.7 g/dLLow13.0-17.0The TriHealthComment on above:Order Comment: No: Do not add to previous drawPerformed By: #### 93865, 37774, 37580 #### [facility] [address] [place] [address], USALymphocytes (Bld) [#/Vol]1.7 10*3/uLNormal1.2-4.0The TriHealthComment on above:Order Comment: No: Do not add to previous drawPerformed By: #### 67828, 92799, 52423 #### [facility] [address] [place] [address], USALymphocytes/100 WBC (Bld)18.4 %Low20.0-45.0The TriHealthComment on above:Order Comment: No: Do not add to previous drawPerformed By: #### 02167, 65984, 60505 #### [facility] [address] [place] [address], USAMACROModerateNormalThe [facility] Comment on above:Order Comment: No: Do not add to previous drawPerformed By: #### 25880, 96351, 76719 #### [facility] [address] [place] [address], USAMCH (RBC) [Entitic mass]32.6 qpAeurve71.0-33.0The TriHealthComment on above:Order Comment: No: Do not add to previous drawPerformed By: #### 12213, 36145, 19071 #### [facility] [address] [place] [address], [facility]ENTERMCHC (RBC) [Mass/Vol]31.4 g/dLLow32.0-35.0The TriHealthComment on above:Order Comment: No: Do not add to previous drawPerformed By: #### 12489, 67182, 34581 #### [facility] [address] [place] [address], [facility] (RBC) [Entitic vol]103.9 oNCmkj52.0-98.0The TriHealthComment on above:Order Comment: No: Do not add to previous drawPerformed By: #### 36628, 85248, 00121 #### [facility] [address] [place] [address], USAMonocytes (Bld) [#/Vol]1.5 10*3/uLHigh0.1-1.0The TriHealthComment on above:Order Comment: No: Do not add to previous drawPerformed By: #### 33317, 29006, 35995 #### [facility] [address] [place] [address], DWDPUFIR57.5 %High5.0-12.0The TriHealthComment on above:Order Comment: No: Do not add to previous drawPerformed By: #### 17440, 07372, 53530 #### [facility] [address] [place] [address], USAMYELOS1.8 %High0.0-0.0The TriHealthComment on above:Order Comment: No: Do not add to previous drawPerformed By: #### 71269, 27330, 13204 #### [facility] [address] [place] [address], USANeutrophils/100 WBC (Bld)63.3 %Rftqba54.0-72.0The TriHealthComment on above:Order Comment: No: Do not add to previous drawPerformed By: #### 17754, 97650, 82745 #### [facility] [address] [place] [address], USANucleated RBC/100 WBC (Bld) [Ratio]0 %Normal0-0The TriHealthComment on above:Order Comment: No: Do not add to previous drawPerformed By: #### 66343, 40079, 45732 #### [facility] [address] [place] [address], USAPLAT LFB370 10*3/tQLlrnyq995-651Tbh TriHealthComment on above:Order Comment: No: Do not add to previous draw Performed By: #### 66117, 86065, 79314 #### [facility] [address] [address], USARBC (Bld) [#/Vol]3.89 10*6/uLLow4.20-5.70The TriHealthComment on above:Order Comment: No: Do not add to previous drawPerformed By: #### 33252, 46025, 45408 #### [facility] [address] [place] [address], USAWBC (Bld) [#/Vol]9.26 10*3/uLNormal4.00-10.60The TriHealthComment on above:Order Comment: No: Do not add to previous drawPerformed By: #### 61895, 62057, 35226 #### [facility] [address] [place] [address], USAABS IMM GRANS0.1 10*3/uLNormal0.0-0.2The TriHealthComment on above:Performed By: #### 93914, , 29039 #### [facility] [address] [facility] [place] [address], USAABS NEUTROPHILS5.5 10*3/uLNormal1.6-7.6The TriHealthComment on above:Performed By: #### 81285, , 72501 #### [facility] [address] [facility] [place] [address], USABasophils (Bld) [#/Vol]0.0 10*3/uLNormal0.0-0.2The TriHealthComment on above:Performed By: #### 07567, , 29903 #### [facility] [address] [facility] [place] [address], USABasophils/100 WBC (Bld)0.3 %Normal0.0-1.0The TriHealthComment on above:Performed By: #### 87624, , 42312 #### [facility] [address] [facility] [place] [address], [facility] CENTEREosinophils (Bld) [#/Vol]0.0 10*3/uLNormal0.0-0.5The TriHealthComment on above:Performed By: #### 93423, , 34775 #### [facility] [address] [facility] [place] [address], USAEosinophils/100 WBC (Bld)0.5 %Normal0.0-6.0The TriHealthComment on above:Performed By: #### 66468, , 54757 #### [facility] [address] [facility] [place] [address], USAErythrocyte distribution width (RBC) [Ratio]12.8 %Normal 11.5-15.0The TriHealthComment on above:Performed By: #### 91854, , 60643 #### [facility] [address] [place] [address], USAHematocrit (Bld) [Volume fraction]39.5 %Rutuzv28.0-50.0The TriHealthComment on above:Performed By: #### 60690, 99080, 05397 #### [facility] [address] [place] [address], USAHemoglobin (Bld) [Mass/Vol]12.5 g/dLLow13.0-17.0The TriHealthComment on above:Performed By: #### 34157, 82601, 43599 #### [facility] [address] [facility] [place] [address], USAIMMATURE GRANS0.6 %Normal0.0-1.0The TriHealthComment on above:Performed By: #### 18123, 16463, 65691 #### [facility] [address] [facility] [place] [address], USALymphocytes (Bld) [#/Vol]1.3 10*3/uLNormal1.2-4.0The TriHealthComment on above:Performed By: #### 45647, 80268, 23153 #### [facility] [address] [facility] [place] [address], USALymphocytes/100 WBC (Bld)15.4 %Low20.0-45.0The TriHealthComment on above:Performed By: #### 78754, 93911, 32054 #### [facility] [address] [facility] [place] [address], [facility] (RBC) [Entitic mass]32.9 yhXwqalu46.0-33.0The TriHealthComment on above:Performed By: #### 58245, 67921, 79356 #### [facility] [address] [facility] [place] [address], USAMCHC (RBC) [Mass/Vol]31.6 g/dLLow32.0-35.0The TriHealthComment on above:Performed By: #### 56626, 76886, 24919 #### [facility] [address] [address], [facility] CENTERMCV (RBC) [Entitic vol]103.9 dGTjpm62.0-98.0The TriHealthComment on above:Performed By: #### 84286, 37677, 23033 #### [facility] [address] [facility] [place] [address], USAMonocytes (Bld) [#/Vol]1.7 10*3/uLHigh0.1-1.0The TriHealthComment on above:Performed By: #### 37379, 83117, 38581 #### [facility] [address] [facility] [place] [address], CJWOASEM51.8 %High5.0-12.0The TriHealthComment on above:Performed By: #### 69527, 45188, 21927 #### [facility] [address] [facility] [place] [address], USANeutrophils/100 WBC (Bld)63.4 %Bldwkz40.0-72.0The TriHealthComment on above:Performed By: #### 51658, 67615, 16857 #### [facility] [address] [facility] [place] [address], USANucleated RBC/100 WBC (Bld) [Ratio]0 %Normal0-0The TriHealthComment on above:Performed By: #### 44739, 36839, 02505 #### [facility] [address] [facility] [place] [address], USAPLAT RNN419 10*3/jWQshpzd061-155Zsg TriHealthComment on above:Performed By: #### 02046, 92896, 96618 #### [facility] [address] [place] [address], USARBC (Bld) [#/Vol]3.80 10*6/uLLow4.20-5.70The TriHealthComment on above:Performed By: #### 08272, 74119, 01966 #### [facility] [address] [place] [address], USAWBC (Bld) [#/Vol]8.68 10*3/uLNormal4.00-10.60The TriHealthComment on above:Performed By: #### 27967, 34248, 77619 #### [facility] [address] [place] [address], USACOMP METABOLIC PANELon 60-37-3447Rbmwkhd [Mass/Vol]4.1 g/dL Normal3.5-5.7The TriHealthComment on above:Performed By: #### 52203 #### [facility] [address] [place] [address], USAALKALINE PTQYHW09 IU/LTjmowc09-966Utf TriHealthComment on above:Performed By: #### 40152 #### [facility] [address] [place] [address], USAALT [Catalytic activity/Vol]14 U/LNormal7-52The TriHealthComment on above:Performed By: #### 44016 #### [facility] [address] [place] [address], USAAST [Catalytic activity/Vol]15 U/IRcvvef10-68Exd TriHealthComment on above:Performed By: #### 87289 #### [facility] [address] [place] [address], USABilirubin [Mass/Vol]1.0 mg/dLNormal0.3-1.0The TriHealthComment on above:Performed By: #### 07046 #### [facility] [address] [place] [address], USACalcium [Mass/Vol]9.1 mg/dLNormal8.6-10.3The TriHealthComment on above:Performed By: #### 62348 #### [facility] [address] [place] [address], USAChloride [Moles/Vol]102 mmol/AMuxalv28-538Lxv TriHealthComment on above:Performed By: #### 08073 #### [facility] [address] [place] [address], USACO2 [Moles/Vol]22 mmol/HUbcuep88-63Tbr TriHealthComment on above:Performed By: #### 29351 #### [facility] [address] [place] [address], USACreatinine [Mass/Vol]1.51 mg/dLHigh0.70-1.30The TriHealthComment on above:Performed By: #### 61368 #### [facility] [address] [place] [address], USAeGFR- Wdknhwcf19 ml/min/1.73sq mAbnormal>60The TriHealthComment on above:Performed By: #### 98193 #### [facility] [address] [place] [address], USAeGFR- non- Wuhywufs18 ml/min/1.73sq mAbnormal>60The TriHealthComment on above:Performed By: #### 78274 #### [facility] [address] [place] [address], USAGlucose [Mass/Vol]84 mg/rIRutjru74-751Dhy TriHealthComment on above:Performed By: #### 56653 #### [facility] [address] [place] [address], USAPotassium [Moles/Vol]3.9 mmol/LNormal3.5-5.1The TriHealthComment on above:Performed By: #### 52901 #### [facility] [address] [place] [address], USAProtein [Mass/Vol]7.2 g/dLNormal6.0-8.3The TriHealthComment on above:Performed By: #### 52123 #### [facility] [address] [place] [address], USASodium [Moles/Vol]139 mmol/TFaxvjp079-492Xma TriHealthComment on above:Performed By: #### 74125 #### [facility] [address] [place] [address], USAUrea nitrogen [Mass/Vol]40 mg/dLHigh7-25The TriHealthComment on above:Performed By: #### 46244 #### [facility] [address] [address], USALACTATE WITH REFLEXon 70-06-1201Flpqebj [Moles/Vol]0.6 mmol/LNormal.5-2.2The TriHealthComment on above: Performed By: #### 37419 #### [facility] [address] [address], USAMAGNESIUM BLOODon 02-07-7071Lkpizjzvy [Mass/Vol]2.0 mg/dL Normal1.9-2.7The TriHealthComment on above:Order Comment: No: Do not add to previous drawPerformed By: #### 86396, 17728, 89848 #### [facility] [address] [place] [address], USAPHOSPHORUS BLOODon 41-63-3953Fyvgdddgl [Mass/Vol]3.2 mg/dL Normal2.5-5.0The TriHealthComment on above:Order Comment: No: Do not add to previous drawPerformed By: #### 52358, 61483, 23359 #### [facility] [address] [place] [address], [facility]ENTERPO SARS COV2 ANTIGEN NEGATIVEon 33-28-1501DFP SARS COV2 ANTIGEN NEGNegativeNormalNEGATIVEThe TriHealthComment on above:Result Comment: Negative results should be [...] antigen from SARS-CoV-2 in direct nasopharyngeal swab ([employer]) specimens from individuals who are suspected of [...] Compliance, or Certificate of Accreditation.Performed By: #### 16504, 66152, 66468 #### [facility] [address] [place] [address], USAGLUCOSE, BLOOD (POC)on 91-30-8649Gpaiqfd [Mass/Vol]102 mg/kBOcfhajpk69 - 99 mg/dLKettering Health – Soin Medical CenterComment on above:Location:[facility], [address] [place] [address] , [place], [place], [facility] The Accu-Chek Inform II glucose meter has [...] above situations. Interpretation and review of laboratory resultsAbnormalCFostoria City HospitalPET+CT Guidance for localization of tumor of Skull base to mid-thigh-- W 18F-FDG Joanna 34-41-9242NTIRJDDALK: 1. HEAD/NECK: New left oral pharyngeal FDG [...] any questions regarding this interpretation, please call [phone]. 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 HEAD AND [...] the L1 vertebral body. 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 HEAD AND [...] any questions regarding this interpretation, please call [phone]. If you are unable to reach us at the number above, please feel free to contact [facility] eRadiology at [phone]. [facility] Soin Medical CenterRadiology Study observation (narrative)[facility]+CT Guidance for localization of tumor of Skull base to mid-thigh-- W 18F-FDG IV Ordered By: Ccf Provider on 19-07-4599Ulftyacmb ClinicBaalbert [facility] Metabolic,Non-Fastingon 38-28-1796Rljolefhhj mass conc0.98 mg/dLNormal0.70-1.30 [facility] HospitalComment on above:Order Comment: Is Patient Fasting? YesPerformed By: #### L400.0152, L400.2200, L400.5100 ####Main Laboratory ([facility])[address], [place] [phone] Nivar, MDGFR/1.73 sq M predicted among non-blacks MDRD vol rate/area (S/P/Bld)mL/min/{1.73_m2} NormalOhiohealth Riverside Methodist HospitalComment on above:Order Comment: Is Patient Fasting? YesResult Comment: Chronic Kidney Disease stages by NKDFStage eGFR I >90 II 60-89 III 30-59 IV 15-29 V <15 or dialysisAGE(years) AVERAGE GFR 50-59 93 ml/min/1.73 square metersNote:This result is normalized to 1.73 square meter body surface area. Height and weight are not factored.Performed By: #### L400.0152, L400.2200, L400.5100 ####Main Laboratory ([facility])[address], [place] [phone] Sandy, MDAnion gap 3 molar conc8 mmol/LNormal4-12[facility] HospitalComment on above:Order Comment: Is Patient Fasting? YesPerformed By: #### L400.0152, L400.2200, L400.5100 ####Main Laboratory ([facility])[address], [place] [phone] Sandy, MDCalcium mass conc8.8 mg/dLNormal8.8-10.5[facility] HospitalComment on above:Order Comment: Is Patient Fasting? Yes Performed By: #### L400.0152, L400.2200, L400.5100 ####Main Laboratory ([facility])[address], [place] [phone] Sandy, MDChloride molar pprc852 mmol/PUltmws506-191OriuOhiohealth Riverside Methodist HospitalComment on above: Order Comment: Is Patient Fasting? YesPerformed By: #### L400.0152, L400.2200, L400.5100 ####Main Laboratory ([facility])[address], [place] [phone] Sandy, MDCO2 molar conc22 mmol/TXldgph03-66FmumOhiohealth Riverside Methodist HospitalComment on above:Order Comment: Is Patient Fasting? YesPerformed By: #### L400.0152, L400.2200, L400.5100 ####Main Laboratory ([facility])[address], [place] [phone] Sandy, MDGlucose mass vtnf421 mg/fDRrwfbo20-687DsevOhiohealth Riverside Methodist HospitalComment on above:Order Comment: Is Patient Fasting? YesResult Comment: *This reference range applies to fasting specimens only.Performed By: #### L400.0152, L400.2200, L400.5100 ####Main Laboratory ([facility])[address] [phone] Sandy, MDPotassium molar conc4.4 mmol/LNormal3.6-5.0[facility] HospitalComment on above:Order Comment: Is Patient Fasting? YesPerformed By: #### L400.0152, L400.2200, L400.5100 ####[facility] ([facility])[address], [place] [phone] Sandy, MDSodium molar njbo210 mmol/NSar956-082JlriOhiohealth Riverside Methodist HospitalComment on above:Order Comment: Is Patient Fasting? Yes Performed By: #### L400.0152, L400.2200, L400.5100 ####[facility] ([facility])[address], [place] [phone] Sandy, MDUrea nitrogen mass conc17 mg/dLNormal7-20[facility] HospitalComment on above: Order Comment: Is Patient Fasting? YesPerformed By: #### L400.0152, L400.2200, L400.5100 ####[facility] ([facility])[address], [place] [phone] Sandy, MDCBC with Differentialon 38-61-3502Cic Baso Count0 /cmmNormal0-200[facility] HospitalComment on above:Performed By: #### L400.0152, L400.2200, L400.5100 ####[facility] ([facility])[address], [place] [phone] Sandy, MDAbs Eos Nvtby666 /cmmNormal0-500[facility] HospitalComment on above:Performed By: #### L400.0152, L400.2200, L400.5100 ####[facility] ([facility])[address], [place] [phone] Sandy, MDAbs [place] Fpzgw6713 /cmmHigh0-800 [facility] HospitalComment on above:Performed By: #### L400.0152, L400.2200, L400.5100 ####[facility] ([facility])[address], [place] [phone] Sandy, MDAbs Neut Rcarl6523 /vzjJnfbqp4146-9321TogyOhiohealth Riverside Methodist HospitalComment on above:Performed By: #### L400.0152, L400.2200, L400.5100 ####[facility] ([facility])[address], [place] [phone] Nivar, MDBasophils Auto #/vol (Bld)0.5 %Normal0-2LPaulding County HospitalComment on above:Performed By: #### L400.0152, L400.2200, L400.5100 ####[facility] ([facility])[address], [place] [phone] Nivar, MDEOS-Auto Diff2.2 %Normal0-6[facility] HospitalComment on above:Performed By: #### L400.0152, L400.2200, L400.5100 ####[facility] ([facility])[address], [place] [phone] Nivar, MDErythrocyte distribution width Auto Ratio (RBC) 17.7 %High12.0-16.0[facility] HospitalComment on above:Performed By: #### L400.0152, L400.2200, L400.5100 ####[facility] ([facility])[address], [place] [phone] Nivar, MDHematocrit Auto Volume Fraction (Bld)27.2 %Low40.0-49.0[facility] HospitalComment on above:Performed By: #### L400.0152, L400.2200, L400.5100 ####[facility] ([facility])[address] [place], [place] [phone] Nivar, MD Hemoglobin mass conc (Bld)8.9 g/dLLow13.5-16.5[facility] HospitalComment on above:Performed By: #### L400.0152, L400.2200, L400.5100 ####[facility] ([facility])[address] [place], [place] [phone] Nivar, MD Lymphocytes Auto #/vol (Bld)2100 /lngZylwma0266-6048VbiqOhiohealth Riverside Methodist Hospital Comment on above:Performed By: #### L400.0152, L400.2200, L400.5100 ####[facility] ([facility])[address] [place], [place] [phone] Nivar, MDLymphocytes/100 WBC Auto (Bld)25.7 %Ndrolq17-80LcwdOhiohealth Riverside Methodist Hospital Comment on above:Performed By: #### L400.0152, L400.2200, L400.5100 ####[facility] ([facility])[address] [place], [place] [phone] Nivar, MDMCH Auto Entitic mass (RBC)30.0 zwIptspl88.5-33.0[facility] Comment on above:Performed By: #### L400.0152, L400.2200, L400.5100 ####[facility] ([facility])[address], [place] [phone] Sandy, MDMCHC Auto mass conc (RBC)32.6 g/dLLow33.0-36.0[facility] Comment on above:Performed By: #### L400.0152, L400.2200, L400.5100 ####[facility] ([facility])[address], [place] [phone] Sandy, MDMCV Auto Entitic volume (RBC)92.2 CU QDSCequcc99-84TfjqOhiohealth Riverside [facility] Hospital Comment on above:Performed By: #### L400.0152, L400.2200, L400.5100 ####[facility] ([facility])[address], [place] [phone] Sandy, MDMono- Auto Diff11.6 %High2-10[facility] HospitalComment on above: Performed By: #### L400.0152, L400.2200, L400.5100 ####[facility] ([facility])[address], [place] [phone] Sandy, MDNeut-Auto Diff60.0 %Sxdsij31-87DtyuOhiohealth Riverside Methodist HospitalComment on above:Performed By: #### L400.0152, L400.2200, L400.5100 ####[facility] ([facility])[address], [place] [phone] Sandy, MDNRBC-Auto0.1 /100 WBCNormal<1LPaulding County HospitalComment on above:Performed By: #### L400.0152, L400.2200, L400.5100 ####[facility] ([facility])[address], [place] [phone] Sandy, MDPlatelets Auto #/vol (Bld)444 th/vbdXemh674-627XjaoOhiohealth Riverside Methodist HospitalComment on above:Performed By: #### L400.0152, L400.2200, L400.5100 ####[facility] ([facility])[address], [place] [phone] Sandy, MDRBC Auto #/vol (Bld)2.95 mil/cmm Low4.50-6.00[facility] HospitalComment on above:Performed By: #### L400.0152, L400.2200, L400.5100 ####[facility] ([facility])[address], [place] [phone] Nivar, MDWBC Auto #/vol (Bld)8.4 th/cmm Normal4.4-10.5[facility] HospitalComment on above:Performed By: #### L400.0152, L400.2200, L400.5100 ####[facility] ([facility])[address], [place] [phone] Nivar, MDMagnesiumon 81-91-4816Chwwtfacq mass conc1.7 mg/dLLow1.8-2.5[facility] HospitalComment on above:Order Comment: Is Patient Fasting? YesPerformed By: #### L400.0152, L400.2200, L400.5100 ####[facility] ([facility])[address] [place], [place] [phone] Nivar, MDPrealbuminon 68-39-5644Qpylnopizq mass conc19.5 mg/yEDwevbu65.0-38.0[facility] HospitalCommymichigan medical center on above:Order Comment: Is Patient Fasting? YesPerformed By: #### L400.0152, L400.2200, L400.5100 ####[facility] ([facility])[address], [place] [phone] Nivar, MDTriglycerideson 24-66-7708Mctybfnpozkd mass conc96 mg/dLNormal<150[facility] HospitalComment on above:Order Comment: Is Patient Fasting? YesPerformed By: #### L400.0152, L400.2200, L400.5100 ####[facility] ([facility])[address], [place] [phone] Sandy, Basijavid Metabolic,Non-Fastingon 66-15-5283Ntcbc gap 3 molar conc7 mmol/LNormal4-12[facility] HospitalComment on above: Performed By: #### L400.0152, L400.2200, L400.5100 ####[facility] ([facility])[address], [place] [phone] Sandy, MDCalcium mass conc8.5 mg/dLLow8.8-10.5[facility] HospitalComment on above: Performed By: #### L400.0152, L400.2200, L400.5100 ####[facility] ([facility])[address], [place] [phone] Sandy, MDChloride molar ifjy396 mmol/JBzranv925-309FxktOhiohealth Riverside Methodist HospitalComment on above: Performed By: #### L400.0152, L400.2200, L400.5100 ####[facility] ([facility])[address], [place] [phone] Sandy, MDCO2 molar conc23 mmol/GKiibfl52-41FnwsOhiohealth Riverside Methodist HospitalComment on above:Performed By: #### L400.0152, L400.2200, L400.5100 ####[facility] ([facility])[address], [place] [phone] Sandy, MDCreatinine mass conc 0.86 mg/dLNormal0.70-1.30[facility] HospitalComment on above:Performed By: #### L400.0152, L400.2200, L400.5100 ####[facility] ([facility])[address], [place] [phone] Sandy, MDGFR/1.73 sq M predicted among non-blacks [...] By: #### L400.0152, L400.2200, L400.5100 ####[facility] ([facility])[address] [phone] Nivar, MDGlucose mass ggkt299 mg/xASuqvze23-788QrxlOhiohealth Riverside Methodist HospitalComment on above:Result Comment: *This reference range applies to fasting specimens only.Performed By: #### L400.0152, L400.2200, L400.5100 ####[facility] ([facility])[address], [place] [phone] Sandy, MDPotassium molar conc4.2 mmol/LNormal3.6-5.0[facility] HospitalComment on above:Performed By: #### L400.0152, L400.2200, L400.5100 ####[facility] ([facility])[address], [place] [phone] Sandy, MDSodium molar bbey423 mmol/MUhn298-552UzlhOhiohealth Riverside Methodist HospitalComment on above:Performed By: #### L400.0152, L400.2200, L400.5100 ####[facility] ([facility])[address], [place] [phone] Sandy, MDUrea nitrogen mass conc16 mg/dLNormal7-20[facility] HospitalComment on above:Performed By: #### L400.0152, L400.2200, L400.5100 ####[facility] ([facility])[address], [place] [phone] Sandy, MDMagnesiumon 72-54-0185Rdidvhczm mass conc1.7 mg/dLLow1.8-2.5[facility] HospitalComment on above:Performed By: #### L400.0152, L400.2200, L400.5100 ####[facility] ([facility])[address], [place] [phone] Sandy, MDBasic Metabolic,Non-Fastingon 71-59-4332Ddctp gap 3 molar conc9 mmol/LNormal4-12[facility] Comment on above:Performed By: #### L400.0202, L400.0302, L400.2200, L400.2500, L400.5100, L404.6500 ####[facility] ([facility])[address], [place] [phone] Sandy, MDCalcium mass conc8.5 mg/dLLow8.8-10.5[facility] HospitalComment on above:Performed By: #### L400.0202, L400.0302, L400.2200, L400.2500, L400.5100, L404.6500 ####[facility] ([facility])[address], [place] [phone] Sandy, MDChloride molar conc 99 mmol/HQgu540-581HatlOhiohealth Riverside Methodist HospitalComment on above:Performed By: #### L400.0202, L400.0302, L400.2200, L400.2500, L400.5100, L404.6500 ####[facility] ([facility])[address], [place] [phone] Sandy, MDCO2 molar conc23 mmol/RLnskmb23-42YdkcOhiohealth Riverside Methodist HospitalComment on above: Performed By: #### L400.0202, L400.0302, L400.2200, L400.2500, L400.5100, L404.6500 ####[facility] ([facility])[address] [phone] MIAH Delgadoreatinine mass conc0.96 mg/dLNormal0.70-1.30 [facility] HospitalComment on above:Performed By: #### L400.0202, L400.0302, L400.2200, L400.2500, L400.5100, L404.6500 ####[facility] ([facility])[address] [place] [phone] Nivar, MDGFR/1.73 sq M predicted among non-blacks MDRD vol rate/area (S/P/Bld)mL/min/{1.73_m2} NormalOhiohealth Riverside Methodist HospitalComment on above:Result Comment: Chronic Kidney [...] ([facility])[address] [place] [place] [phone] Nivar, MDGlucose mass conc97 mg/zVBnlrrq52-587QezvOhiohealth Riverside Methodist HospitalComment on above:Result Comment: *This reference range applies to fasting specimens only.Performed By: #### L400.0202, L400.0302, L400.2200, L400.2500, L400.5100, L404.6500 ####[facility] ([facility])[address] [place], [place] [phone] Sandy, MDPotassium molar conc4.0 mmol/LNormal3.6-5.0[facility] HospitalComment on above:Performed By: #### L400.0202, L400.0302, L400.2200, L400.2500, L400.5100, L404.6500 ####[facility] ([facility])[address] [place] [phone] Sandy, MDSodium molar ahrc075 mmol/NAju403-520FqvsOhiohealth Riverside Methodist HospitalComment on above:Performed By: #### L400.0202, L400.0302, L400.2200, L400.2500, L400.5100, L404.6500 ####[facility] ([facility])[address] [place], [place] [phone] Nivar, MDUrea nitrogen mass conc18 mg/dLNormal7-20[facility] HospitalComment on above:Performed By: #### L400.0202, L400.0302, L400.2200, L400.2500, L400.5100, L404.6500 ####[facility] ([facility])[address] [place] [phone] Sandy, MDMagnesiumon 51-48-1353Ajeviyaia mass conc1.7 mg/dLLow1.8-2.5[facility] HospitalComment on above:Performed By: #### L400.0202, L400.0302, L400.2200, L400.2500, L400.5100, L404.6500 ####[facility] ([facility])[address] [place] [phone] Nivar, MDBasic Metabolic,Non-Fastingon 56-46-6447Kjqzt gap 3 molar conc7 mmol/LNormal4-12[facility] HospitalComment on above:Performed By: #### L400.0202, L400.0302, L400.2200, L400.2500, L400.5100, L404.6500 ####[facility] ([facility])[address] [place], [place] [phone] Sandy, MDCalcium mass conc8.9 mg/dLNormal8.8-10.5[facility] HospitalComment on above:Performed By: #### L400.0202, L400.0302, L400.2200, L400.2500, L400.5100, L404.6500 ####[facility] ([facility])[address] [place], [place] [phone] Sandy, MDChloride molar ljzi178 mmol/AEusthf814-856KxrvOhiohealth Riverside Methodist HospitalComment on above:Performed By: #### L400.0202, L400.0302, L400.2200, L400.2500, L400.5100, L404.6500 ####[facility] ([facility])[address] [place], [place] [phone] Sandy, MDCO2 molar conc24 mmol/CCjkjec59-46HsgcOhiohealth Riverside Methodist HospitalComment on above:Performed By: #### L400.0202, L400.0302, L400.2200, L400.2500, L400.5100, L404.6500 ####[facility] ([facility])[address] [place], [place] [phone] Sandy, MDCreatinine mass conc 1.00 mg/dLNormal0.70-1.30[facility] HospitalComment on above:Performed By: #### L400.0202, L400.0302, L400.2200, L400.2500, L400.5100, L404.6500 ####[facility] ([facility])[address] [place], [place] [phone] Sandy, MDGFR/1.73 sq M predicted among non-blacks MDRD vol rate/area (S/P/Bld)mL/min/{1.73_m2}NormalOhiohealth Riverside Methodist HospitalComment on above:Result Comment: Chronic Kidney Disease stages by NKDFStage eGFR I >90 II 60-89 III 30-59 IV 15-29 V <15 or dialysisAGE(years) AVERAGE GFR 50-59 93 ml/min/1.73 square metersNote:This result is normalized to 1.73 square meter body surface area. Height and weight are not factored.Performed By: #### L400.0202, L400.0302, L400.2200, L400.2500, L400.5100, L404.6500 ####[facility] ([facility])[address], [place] [phone] Nivar, MDGlucose mass conc94 mg/iACgrbxm60-400JawfOhiohealth Riverside Methodist HospitalComment on above:Result Comment: *This reference range applies to fasting specimens only.Performed By: #### L400.0202, L400.0302, L400.2200, L400.2500, L400.5100, L404.6500 ####[facility] ([facility])[address], [place] [phone] Nivar, MDPotassium molar conc 4.2 mmol/LNormal3.6-5.0[facility] HospitalComment on above:Performed By: #### L400.0202, L400.0302, L400.2200, L400.2500, L400.5100, L404.6500 ####[facility] ([facility])[address], [place] [phone] Sandy, MDSodium molar apqx356 mmol/FTmx058-019LodlOhiohealth Riverside Methodist HospitalComment on above:Performed By: #### L400.0202, L400.0302, L400.2200, L400.2500, L400.5100, L404.6500 ####[facility] ([facility])[address], [place] [phone] Nivar, MDUrea nitrogen mass conc18 mg/dLNormal7-20[facility] HospitalComment on above:Performed By: #### L400.0202, L400.0302, L400.2200, L400.2500, L400.5100, L404.6500 ####[facility] ([facility])[address], [place] [phone] Nivar, MDMagnesiumon 64-22-6298Ljgvzlnrm mass conc1.7 mg/dLLow1.8-2.5[facility] Comment on above:Performed By: #### L400.0202, L400.0302, L400.2200, L400.2500, L400.5100, L404.6500 ####[facility] ([facility])[address] [place], [place] [phone] Nivar, MDBasijavid Metabolic,Non-Fastingon 69-20-5945Wymtj gap 3 molar conc8 mmol/LNormal4-12[facility] HospitalComment on above: Performed By: #### L400.0202, L400.0302, L400.2200, L400.2500, L400.5100, L404.6500 ####[facility] ([facility])[address], [place] [phone] Sandy, MDCalcium mass conc8.6 mg/dLLow8.8-10.5[facility] HospitalComment on above:Performed By: #### L400.0202, L400.0302, L400.2200, L400.2500, L400.5100, L404.6500 ####[facility] ([facility])[address], [place] [phone] Sandy, MDChloride molar conc 102 mmol/TUexwfu293-979UipgOhiohealth Riverside Methodist HospitalComment on above:Performed By: #### L400.0202, L400.0302, L400.2200, L400.2500, L400.5100, L404.6500 ####[facility] ([facility])[address], [place] [phone] Sandy, MDCO2 molar conc21 mmol/ZMmzezk49-40XpxpOhiohealth Riverside Methodist HospitalComment on above: Performed By: #### L400.0202, L400.0302, L400.2200, L400.2500, L400.5100, L404.6500 ####[facility] ([facility])[address] [place], [place] [phone] Sandy, MDCreatinine mass conc0.98 mg/dLNormal0.70-1.30 [facility] HospitalComment on above:Performed By: #### L400.0202, L400.0302, L400.2200, L400.2500, L400.5100, L404.6500 ####[facility] ([facility])[address] [place] [phone] Sandy, MDGFR/1.73 sq M predicted among non-blacks MDRD vol rate/area (S/P/Bld)mL/min/{1.73_m2} NormalOhiohealth Riverside Methodist HospitalComment on above:Result Comment: Chronic Kidney Disease stages by NKDFStage eGFR I >90 II 60-89 III 30-59 IV 15-29 V <15 or dialysisAGE(years) AVERAGE GFR 50-59 93 ml/min/1.73 square metersNote:This result is normalized to 1.73 square meter body surface area. Height and weight are not factored.Performed By: #### L400.0202, L400.0302, L400.2200, L400.2500, L400.5100, L404.6500 ####[facility] ([facility])[address] [phone] Nivar, MDGlucose mass uhmr538 mg/bSPojwmn09-362BgbqOhiohealth Riverside Methodist HospitalComment on above:Result Comment: *This reference range applies to fasting specimens only.Performed By: #### L400.0202, L400.0302, L400.2200, L400.2500, L400.5100, L404.6500 ####[facility] ([facility])[address], [place] [phone] Nivar, MDPotassium molar conc4.2 mmol/LNormal3.6-5.0[facility] HospitalComment on above:Performed By: #### L400.0202, L400.0302, L400.2200, L400.2500, L400.5100, L404.6500 ####[facility] ([facility])[address], [place] [phone] Sandy, MDSodium molar isri051 mmol/OMwm895-129GnjbOhiohealth Riverside Methodist HospitalComment on above:Performed By: #### L400.0202, L400.0302, L400.2200, L400.2500, L400.5100, L404.6500 ####[facility] ([facility])[address], [place] [phone] Nivar, MDUrea nitrogen mass conc16 mg/dLNormal7-20[facility] HospitalComment on above:Performed By: #### L400.0202, L400.0302, L400.2200, L400.2500, L400.5100, L404.6500 ####[facility] ([facility])[address], [place] [phone] Sandy, MDMagnesiumon 08-78-0700Dgrxbembe mass conc1.8 mg/dLNormal1.8-2.5[facility] HospitalComment on above:Performed By: #### L400.0202, L400.0302, L400.2200, L400.2500, L400.5100, L404.6500 ####[facility] ([facility])[address] [place] [phone] Sandy, MDPhosphoruson 29-02-8463Qfxteijax mass conc4.2 mg/dLNormal2.4-4.7[facility] Comment on above:Performed By: #### L400.0202, L400.0302, L400.2200, L400.2500, L400.5100, L404.6500 ####[facility] ([facility])[address] [place], [place] [phone] Nivar, MDBasic Metabolic,Non-Fastingon 99-42-4004Hjmcw gap 3 molar conc7 mmol/LNormal4-12[facility] HospitalComment on above: Performed By: #### L400.0202, L400.0302, L400.2200, L400.2500, L400.5100, L404.6500 ####[facility] ([facility])[address] [place], [place] [phone] Sandy, MDCalcium mass conc8.6 mg/dLLow8.8-10.5[facility] HospitalComment on above:Performed By: #### L400.0202, L400.0302, L400.2200, L400.2500, L400.5100, L404.6500 ####[facility] ([facility])[address] [place], [place] [phone] Sandy, MDChloride molar conc 103 mmol/JFsufkq838-175XidgOhiohealth Riverside Methodist HospitalComment on above:Performed By: #### L400.0202, L400.0302, L400.2200, L400.2500, L400.5100, L404.6500 ####[facility] ([facility])[address] [place] [phone] Sandy, MDCO2 molar conc23 mmol/JDxtqjr64-75ZvygOhiohealth Riverside Methodist HospitalCommymichigan medical center on above: Performed By: #### L400.0202, L400.0302, L400.2200, L400.2500, L400.5100, L404.6500 ####[facility] ([facility])[address] [place], [place] [phone] Sandy, MDCreatinine mass conc1.00 mg/dLNormal0.70-1.30 [facility] on above:Performed By: #### L400.0202, L400.0302, L400.2200, L400.2500, L400.5100, L404.6500 ####[facility] ([facility])[address] [phone] Sandy, MDGFR/1.73 sq M predicted among non-blacks MDRD vol rate/area (S/P/Bld)mL/min/{1.73_m2} NormalOhiohealth Riverside Methodist HospitalCommymichigan medical center on above:Result Comment: Chronic Kidney Disease stages by NKDFStage eGFR I >90 II 60-89 III 30-59 IV 15-29 V <15 or dialysisAGE(years) AVERAGE GFR 50-59 93 ml/min/1.73 square metersNote:This result is normalized to 1.73 square meter body surface area. Height and weight are not factored.Performed By: #### L400.0202, L400.0302, L400.2200, L400.2500, L400.5100, L404.6500 ####[facility] ([facility])[address] [place], [place] [phone] Nivar, MDGlucose mass asil450 mg/bFNmuquc28-540Lrvc Memorial Health SystemComment on above:Result Comment: *This reference range applies to fasting specimens only.Performed By: #### L400.0202, L400.0302, L400.2200, L400.2500, L400.5100, L404.6500 ####[facility] ([facility])[address] [place], [place] [phone] Sandy, MDPotassium molar conc4.1 mmol/LNormal3.6-5.0[facility] HospitalComment on above:Performed By: #### L400.0202, L400.0302, L400.2200, L400.2500, L400.5100, L404.6500 ####[facility] ([facility])[address], [place] [phone] Sandy, MDSodium molar vdsi319 mmol/DCqg215-442BmpoOhiohealth Riverside Methodist HospitalComment on above:Performed By: #### L400.0202, L400.0302, L400.2200, L400.2500, L400.5100, L404.6500 ####Main [facility] ([facility])[address] [place], [place] [phone] Sandy, MDUrea nitrogen mass conc20 mg/dLNormal7-20[facility] HospitalComment on above:Performed By: #### L400.0202, L400.0302, L400.2200, L400.2500, L400.5100, L404.6500 ####[facility] ([facility])[address], [place] [phone] Sandy, MDMagnesiumon 60-34-9901Poehkuraz mass conc1.8 mg/dLNormal1.8-2.5[facility] HospitalComment on above:Performed By: #### L400.0202, L400.0302, L400.2200, L400.2500, L400.5100, L404.6500 ####[facility] ([facility])[address], [place] [phone] Sandy, MDBasic Metabolic,Non-Fastingon 83-34-6987Ceufh gap 3 molar conc7 mmol/LNormal4-12[facility] HospitalComment on above:Performed By: #### L400.0202, L400.0302, L400.2200, L400.2500, L400.5100, L404.6500 ####[facility] ([facility])[address], [place] [phone] Sandy, MDCalcium mass conc8.4 mg/dLLow8.8-10.5[facility] HospitalComment on above:Performed By: #### L400.0202, L400.0302, L400.2200, L400.2500, L400.5100, L404.6500 ####Main [facility] ([facility])[address] [place], [place] [phone] Sandy, MDChloride molar tool435 mmol/AEfzyuq521-157TzliOhiohealth Riverside Methodist HospitalComment on above:Performed By: #### L400.0202, L400.0302, L400.2200, L400.2500, L400.5100, L404.6500 ####[facility] ([facility])[address] [place], [place] [phone] Sandy, MDCO2 molar conc21 mmol/QFbmitg75-02RybpOhiohealth Riverside Methodist HospitalComment on above:Performed By: #### L400.0202, L400.0302, L400.2200, L400.2500, L400.5100, L404.6500 ####[facility] ([facility])[address], [place] [phone] Sandy, MDCreatinine mass conc 1.07 mg/dLNormal0.70-1.30[facility] Methodist HospitalComment on above:Performed By: #### L400.0202, L400.0302, L400.2200, L400.2500, L400.5100, L404.6500 ####Main [facility] ([facility])[address] [place] [phone] Nivar, MDGFR/1.73 sq M predicted among non-blacks MDRD vol rate/area (S/P/Bld)mL/min/{1.73_m2}NormalOhiohealth Riverside Methodist HospitalComment on above:Result Comment: Chronic Kidney [...] ([facility])[address] [place] [phone] Nivar, MDGlucose mass oksf256 mg/bNIdggjy34-171RowuOhiohealth Riverside Methodist HospitalComment on above:Result Comment: *This reference range applies to fasting specimens only.Performed By: #### L400.0202, L400.0302, L400.2200, L400.2500, L400.5100, L404.6500 ####Main [facility] ([facility])[address] [place], [place] [phone] Nivar, MDPotassium molar conc 3.9 mmol/LNormal3.6-5.0[facility] Methodist HospitalComment on above:Performed By: #### L400.0202, L400.0302, L400.2200, L400.2500, L400.5100, L404.6500 ####Main [facility] ([facility])[address], [place] [phone] Sandy, MDSodium molar kflx632 mmol/SDei012-872HsevOhiohealth Riverside Methodist HospitalComment on above:Performed By: #### L400.0202, L400.0302, L400.2200, L400.2500, L400.5100, L404.6500 ####Main [facility] ([facility])[address], [place] [phone] Nivar, MDUrea nitrogen mass conc20 mg/dLNormal7-20[facility] Methodist HospitalComment on above:Performed By: #### L400.0202, L400.0302, L400.2200, L400.2500, L400.5100, L404.6500 ####[facility] ([facility])[address], [place] [phone] Sandy, MDMagnesiumon 94-82-4503Fhafzdwsy mass conc1.7 mg/dLLow1.8-2.5[facility] Comment on above:Performed By: #### L400.0202, L400.0302, L400.2200, L400.2500, L400.5100, L404.6500 ####Main [facility] ([facility])[address], [place] [phone] Nivar, MDBasic Metabolic,Non-Fastingon 52-92-9146Occje gap 3 molar conc7 mmol/LNormal4-12[facility] Methodist HospitalComment on above: Performed By: #### L400.0202, L400.0302, L400.2200, L400.2500, L400.5100, L404.6500 ####[facility] ([facility])[address], [place] [phone] Sandy, MDCalcium mass conc8.4 mg/dLLow8.8-10.5[facility] Methodist HospitalComment on above:Performed By: #### L400.0202, L400.0302, L400.2200, L400.2500, L400.5100, L404.6500 ####Main [facility] ([facility])[address] [place] [phone] Sandy, MDChloride molar conc 104 mmol/EYtvrob872-283UagjOhiohealth Riverside Methodist HospitalComment on above:Performed By: #### L400.0202, L400.0302, L400.2200, L400.2500, L400.5100, L404.6500 ####Main [facility] ([facility])[address] [place] [phone] Sandy, MDCO2 molar conc21 mmol/BBdnxrt81-23RvthOhiohealth Riverside Methodist HospitalComment on above: Performed By: #### L400.0202, L400.0302, L400.2200, L400.2500, L400.5100, L404.6500 ####Main [facility] ([facility])[address] [place] [phone] Sandy, MDCreatinine mass conc1.03 mg/dLNormal0.70-1.30 [facility] HospitalComment on above:Performed By: #### L400.0202, L400.0302, L400.2200, L400.2500, L400.5100, L404.6500 ####Main [facility] ([facility])[address] [place], [place] [phone] Sandy, MDGFR/1.73 sq M predicted among non-blacks MDRD vol rate/area (S/P/Bld)mL/min/{1.73_m2} NormalOhiohealth Riverside Methodist HospitalComment on above:Result Comment: Chronic Kidney Disease stages by NKDFStage eGFR I >90 II 60-89 III 30-59 IV 15-29 V <15 or dialysisAGE(years) AVERAGE GFR 50-59 93 ml/min/1.73 square metersNote:This result is normalized to 1.73 square meter body surface area. Height and weight are not factored.Performed By: #### L400.0202, L400.0302, L400.2200, L400.2500, L400.5100, L404.6500 ####[facility] ([facility])[address], [place] [phone] Nivar, MDGlucose mass conc85 mg/wHAszrwn73-251KherOhiohealth Riverside Methodist HospitalComment on above:Result Comment: *This reference range applies to fasting specimens only.Performed By: #### L400.0202, L400.0302, L400.2200, L400.2500, L400.5100, L404.6500 ####[facility] ([facility])[address], [place] [phone] Nivar, MDPotassium molar conc4.3 mmol/LNormal3.6-5.0[facility] Methodist HospitalComment on above:Performed By: #### L400.0202, L400.0302, L400.2200, L400.2500, L400.5100, L404.6500 ####[facility] ([facility])[address], [place] [phone] Nivar, MDSodium molar mcut359 mmol/RNuy100-460QvuwOhiohealth Riverside Methodist HospitalComment on above:Performed By: #### L400.0202, L400.0302, L400.2200, L400.2500, L400.5100, L404.6500 ####Main [facility] ([facility])[address], [place] [phone] Nivar, MDUrea nitrogen mass conc22 mg/dLHigh7-20[facility] HospitalComment on above:Performed By: #### L400.0202, L400.0302, L400.2200, L400.2500, L400.5100, L404.6500 ####[facility] ([facility])[address], [place] [phone] Sandy, MDCBC with Differentialon 03-09-5914Twz Baso Count0 /cmmNormal0-200Ohio[facility] Methodist HospitalComment on above:Performed By: #### L400.0202, L400.0302, L400.2200, L400.2500, L400.5100, L404.6500 ####[facility] ([facility])[address], [place] [phone] Sandy, MDAbs Eos Tfqon516 /cmmNormal0-500Ohio[facility] Methodist HospitalComment on above:Performed By: #### L400.0202, L400.0302, L400.2200, L400.2500, L400.5100, L404.6500 ####Main [facility] ([facility])[address], [place] [phone] Sandy, MDAbs [place] Pfwua241 /cmmNormal0-800Ohio[facility] Methodist HospitalComment on above: Performed By: #### L400.0202, L400.0302, L400.2200, L400.2500, L400.5100, L404.6500 ####[facility] ([facility])[address], [place] [phone] Sandy, MDAbs Neut Rehak4171 /dvjRqvbuj0249-7142KtoqOhiohealth Riverside Methodist HospitalComment on above:Performed By: #### L400.0202, L400.0302, L400.2200, L400.2500, L400.5100, L404.6500 ####[facility] ([facility])[address], [place] [phone] Sandy, MDAnisocytosis Auto Ql (Bld)1+NormalOhiohealth Riverside Methodist HospitalComment on above:Performed By: #### L400.0202, L400.0302, L400.2200, L400.2500, L400.5100, L404.6500 ####[facility] ([facility])[address], [place] [phone] Nivar, MDBasophils Auto #/vol (Bld)0.4 %Normal0-2LPaulding County HospitalComment on above:Performed By: #### L400.0202, L400.0302, L400.2200, L400.2500, L400.5100, L404.6500 ####Main [facility] ([facility])[address], [place] [phone] Nivar, MDEOS-Auto Diff2.6 %Normal0-6[facility] Methodist HospitalComment on above:Performed By: #### L400.0202, L400.0302, L400.2200, L400.2500, L400.5100, L404.6500 ####[facility] ([facility])[address], [place] [phone] Nivar, MDErythrocyte distribution width Auto Ratio (RBC)18.5 %High12.0-16.0[facility] Methodist HospitalComment on above: Performed By: #### L400.0202, L400.0302, L400.2200, L400.2500, L400.5100, L404.6500 ####[facility] ([facility])[address], [place] [phone] Nivar, MDHematocrit Auto Volume Fraction (Bld)26.6 %Low 40.0-49.0[facility] Methodist HospitalComment on above:Performed By: #### L400.0202, L400.0302, L400.2200, L400.2500, L400.5100, L404.6500 ####[facility] ([facility])[address], [place] [phone] Nivar, MDHemoglobin mass conc (Bld)8.4 g/dLLow13.5-16.5[facility] Comment on above:Performed By: #### L400.0202, L400.0302, L400.2200, L400.2500, L400.5100, L404.6500 ####[facility] ([facility])[address], [place] [phone] Nivar, MDLymphocytes Auto #/vol (Bld)2700 /cmmNormal 1000-4800Ohio[facility] Methodist HospitalComment on above:Performed By: #### L400.0202, L400.0302, L400.2200, L400.2500, L400.5100, L404.6500 ####[facility] ([facility])[address] [place] [phone] Nivar, MDLymphocytes/100 WBC Auto (Bld)26.1 %Qizbey91-75MxfeOhiohealth Riverside Methodist Hospital Comment on above:Performed By: #### L400.0202, L400.0302, L400.2200, L400.2500, L400.5100, L404.6500 ####[facility] ([facility])[address], [place] [phone] Sandy, MDMCH Auto Entitic mass (RBC)29.6 pgNormal 27.5-33.0[facility] Methodist HospitalComment on above:Performed By: #### L400.0202, L400.0302, L400.2200, L400.2500, L400.5100, L404.6500 ####[facility] ([facility])[address], [place] [phone] Sandy, MDMCHC Auto mass conc (RBC)31.7 g/dLLow33.0-36.0[facility] Comment on above:Performed By: #### L400.0202, L400.0302, L400.2200, L400.2500, L400.5100, L404.6500 ####[facility] ([facility])[address], [place] [phone] Sandy, MDMCV Auto Entitic volume (RBC)93.3 CU MICNormal 80-97[facility] Methodist HospitalComment on above:Performed By: #### L400.0202, L400.0302, L400.2200, L400.2500, L400.5100, L404.6500 ####[facility] ([facility])[address], [place] [phone] Sandy, MDMono- Auto Diff7.7 %Normal2-10[facility] HospitalComment on above:Performed By: #### L400.0202, L400.0302, L400.2200, L400.2500, L400.5100, L404.6500 ####[facility] ([facility])[address], [place] [phone] Sandy, MDNeut-Auto Diff63.2 %Rezxuf86-11RtjkOhiohealth Riverside Methodist HospitalComment on above:Performed By: #### L400.0202, L400.0302, L400.2200, L400.2500, L400.5100, L404.6500 ####[facility] ([facility])[address], [place] [phone] Sandy, MDNRBC-Auto0.1 /100 WBCNormal<1LPaulding County HospitalComment on above:Performed By: #### L400.0202, L400.0302, L400.2200, L400.2500, L400.5100, L404.6500 ####[facility] ([facility])[address], [place] [phone] Sandy, MDPlatelets Auto #/vol (Bld)295 th/jlfHdeozp200-623XxycOhiohealth Riverside Methodist Hospital Comment on above:Performed By: #### L400.0202, L400.0302, L400.2200, L400.2500, L400.5100, L404.6500 ####[facility] ([facility])[address] [place] [phone] Nivar, MDRBC Auto #/vol (Bld)2.85 mil/cmmLow4.50-6.00 [facility] HospitalComment on above:Performed By: #### L400.0202, L400.0302, L400.2200, L400.2500, L400.5100, L404.6500 ####[facility] ([facility])[address] [place] [phone] Nivar, MDWBC Auto #/vol (Bld)10.2 th/cmmNormal4.4-10.5[facility] HospitalComment on above: Performed By: #### L400.0202, L400.0302, L400.2200, L400.2500, L400.5100, L404.6500 ####[facility] ([facility])[address] [place] [phone] Nivar, MDFL MODIFIED BARIUM SWALLOW W VIDEOon [...] PMInterpreted by:NADEGE Dixonigned by:Fidel Rodriguez MD03/01/18Final result NormalBaylor Scott & White Medical Center – College StationHepatic Function Panel (Liver)on 03-01-2018 Albumin mass conc3.1 g/dLLow3.5-5.0[facility] HospitalComment on above: Performed By: #### L400.0202, L400.0302, L400.2200, L400.2500, L400.5100, L404.6500 ####[facility] ([facility])[address], [place] [phone] Sandy, MDAlk Phos97 IU/ICcpmub62-206BnfyOhiohealth Riverside Methodist HospitalComment on above:Performed By: #### L400.0202, L400.0302, L400.2200, L400.2500, L400.5100, L404.6500 ####[facility] ([facility])[address], [place] [phone] Sandy, MDALT/SGPT19 IU/BAxwnqa38-01WkqlOhiohealth Riverside Methodist HospitalComment on above:Performed By: #### L400.0202, L400.0302, L400.2200, L400.2500, L400.5100, L404.6500 ####[facility] ([facility])[address], [place] [phone] Sandy, MDAST/SGOT20 IU/L Xfznnl41-22NqdvOhiohealth Riverside Methodist HospitalComment on above:Performed By: #### L400.0202, L400.0302, L400.2200, L400.2500, L400.5100, L404.6500 ####[facility] ([facility])[address], [place] [phone] Sandy, MDBili,Direct< 0.1Low0.1-0.2[facility] City HospitalComment on above: Performed By: #### L400.0202, L400.0302, L400.2200, L400.2500, L400.5100, L404.6500 ####[facility] ([facility])[address], [place] [phone] Sandy, MDBili,Total< 0.1Low0.2-1.0[facility] HospitalComment on above:Result Comment: Delta: 0.4 on 02/22/18-0402Performed By: #### L400.0202, L400.0302, L400.2200, L400.2500, L400.5100, L404.6500 ####[facility] ([facility])[address], [place] [phone] Sandy, MDProtein mass conc6.9 g/dLNormal6.2-8.0[facility] HospitalComment on above:Performed By: #### L400.0202, L400.0302, L400.2200, L400.2500, L400.5100, L404.6500 ####[facility] ([facility])[address], [place] [phone] Sandy, MDMagnesiumon 52-54-9780Nmfapkfgn mass conc1.8 mg/dLNormal1.8-2.5[facility] HospitalComment on above:Performed By: #### L400.0202, L400.0302, L400.2200, L400.2500, L400.5100, L404.6500 ####[facility] ([facility])[address], [place] [phone] MD SandyBasic Metabolic Panel,Fastingon 84-08-5466Bitza gap 3 molar conc5 mmol/LNormal 4-12[facility] HospitalComment on above:Performed By: #### L400.0202, L400.0302, L400.2200, L400.2500, L400.5100, L404.6500 ####[facility] ([facility])[address], [place] [phone] Sandy, MDCalcium mass conc8.4 mg/dLLow8.8-10.5[facility] HospitalComment on above: Performed By: #### L400.0202, L400.0302, L400.2200, L400.2500, L400.5100, L404.6500 ####[facility] ([facility])[address], [place] [phone] Sandy, MDChloride molar dicf787 mmol/MFtfafr695-009KbqxOhiohealth Riverside Methodist HospitalComment on above:Performed By: #### L400.0202, L400.0302, L400.2200, L400.2500, L400.5100, L404.6500 ####[facility] ([facility])[address], [place] [phone] Sandy, MDCO2 molar conc22 mmol/NLxseja55-72FzazOhiohealth Riverside Methodist HospitalComment on above:Performed By: #### L400.0202, L400.0302, L400.2200, L400.2500, L400.5100, L404.6500 ####[facility] ([facility])[address], [place] [phone] Sandy, MDCreatinine mass conc1.03 mg/dLNormal0.70-1.30[facility] Comment on above:Performed By: #### L400.0202, L400.0302, L400.2200, L400.2500, L400.5100, L404.6500 ####[facility] ([facility])[address], [place] [phone] Sandy, MDGFR/1.73 sq M predicted among non-blacks MDRD vol rate/area (S/P/Bld)mL/min/{1.73_m2}NormalOhiohealth Riverside Methodist HospitalComment on above:Result Comment: Chronic Kidney Disease stages by NKDFStage eGFR I >90 II 60-89 III 30-59 IV 15-29 V <15 or dialysisAGE(years) AVERAGE GFR 50-59 93 ml/min/1.73 square metersNote:This result is normalized to 1.73 square meter body surface area. Height and weight are not factored.Performed By: #### L400.0202, L400.0302, L400.2200, L400.2500, L400.5100, L404.6500 ####[facility] ([facility])[address], [place] [phone] Sandy, MDGlucose mass conc94 mg/xCCslaps26-747PgcvOhiohealth Riverside Methodist HospitalComment on above:Performed By: #### L400.0202, L400.0302, L400.2200, L400.2500, L400.5100, L404.6500 ####[facility] ([facility])[address], [place] [phone] Sandy, MDPotassium molar conc 3.7 mmol/LNormal3.6-5.0[facility] HospitalComment on above:Performed By: #### L400.0202, L400.0302, L400.2200, L400.2500, L400.5100, L404.6500 ####[facility] ([facility])[address], [place] [phone] Sandy, MDSodium molar zfbk591 mmol/KTujtgm808-614SkhrOhiohealth Riverside Methodist HospitalComment on above:Performed By: #### L400.0202, L400.0302, L400.2200, L400.2500, L400.5100, L404.6500 ####[facility] ([facility])[address], [place] [phone] Nivar, MDUrea nitrogen mass conc22 mg/dLHigh7-20[facility] HospitalComment on above:Performed By: #### L400.0202, L400.0302, L400.2200, L400.2500, L400.5100, L404.6500 ####[facility] ([facility])[address], [place] [phone] Sandy, MDCBC with Differentialon 56-77-6024Rrh Baso Count0 /cmmNormal0-200[facility] HospitalComment on above:Performed By: #### L400.0202, L400.0302, L400.2200, L400.2500, L400.5100, L404.6500 ####[facility] ([facility])[address], [place] [phone] Sandy, MDAbs Eos Akwgj648 /cmmNormal0-500 [facility] HospitalComment on above:Performed By: #### L400.0202, L400.0302, L400.2200, L400.2500, L400.5100, L404.6500 ####[facility] ([facility])[address], [place] [phone] Sandy, MDAbs [place] Lmwfg9459 /cmmHigh0-800[facility] HospitalComment on above:Performed By: #### L400.0202, L400.0302, L400.2200, L400.2500, L400.5100, L404.6500 ####[facility] ([facility])[address], [place] [phone] Sandy, MDAbs Neut Afprv5198 /rkyPktx5927-1183RedqOhiohealth Riverside Methodist HospitalComment on above:Performed By: #### L400.0202, L400.0302, L400.2200, L400.2500, L400.5100, L404.6500 ####[facility] ([facility])[address], [place] [phone] Sandy MDAnisocytosis Auto Ql (Bld)1+NormalOhiohealth Riverside Methodist HospitalComment on above:Performed By: #### L400.0202, L400.0302, L400.2200, L400.2500, L400.5100, L404.6500 ####[facility] ([facility])[address], [place] [phone] Nivar, MDBasophils Auto #/vol (Bld)0.3 %Normal0-2[facility] HospitalComment on above:Performed By: #### L400.0202, L400.0302, L400.2200, L400.2500, L400.5100, L404.6500 ####[facility] ([facility])[address], [place] [phone] MD SandyEOS-Auto Diff2.9 %Normal0-6[facility] HospitalComment on above: Performed By: #### L400.0202, L400.0302, L400.2200, L400.2500, L400.5100, L404.6500 ####[facility] ([facility])[address], [place] [phone] Nivar, MDErythrocyte distribution width Auto Ratio (RBC) 18.2 %High12.0-16.0[facility] HospitalComment on above:Performed By: #### L400.0202, L400.0302, L400.2200, L400.2500, L400.5100, L404.6500 ####[facility] ([facility])[address], [place] [phone] Nivar, MDHematocrit Auto Volume Fraction (Bld)24.4 %Low40.0-49.0[facility] Health SystemComment on above:Performed By: #### L400.0202, L400.0302, L400.2200, L400.2500, L400.5100, L404.6500 ####[facility] ([facility])[address] [place] [phone] Nivar, MDHemoglobin mass conc (Bld)7.6 g/dL Low13.5-16.5[facility] HospitalComment on above:Performed By: #### L400.0202, L400.0302, L400.2200, L400.2500, L400.5100, L404.6500 ####[facility] ([facility])[address] [place], [place] [phone] Nivar, MDLymphocytes Auto #/vol (Bld)3200 /iqoTshiym8763-8456XnueOhiohealth Riverside Methodist HospitalComment on above:Performed By: #### L400.0202, L400.0302, L400.2200, L400.2500, L400.5100, L404.6500 ####Main Laboratory ([facility])[address] [place] [phone] Nivar, MDLymphocytes/100 WBC Auto (Bld)24.8 %Evvszp23-64ClmvOhiohealth Riverside Methodist HospitalComment on above:Performed By: #### L400.0202, L400.0302, L400.2200, L400.2500, L400.5100, L404.6500 ####Main Laboratory ([facility])[address], [place] [phone] Nivar, MDMCH Auto Entitic mass (RBC)29.2 jpUsbgia37.5-33.0[facility] Comment on above:Performed By: #### L400.0202, L400.0302, L400.2200, L400.2500, L400.5100, L404.6500 ####Main Laboratory ([facility])[address], [place] [phone] Sandy, MDMCHC Auto mass conc (RBC)31.3 g/dLLow33.0-36.0 [facility] Methodist HospitalComment on above:Performed By: #### L400.0202, L400.0302, L400.2200, L400.2500, L400.5100, L404.6500 ####Main Laboratory ([facility])[address], [place] [phone] Sandy, MDMCV Auto Entitic volume (RBC)93.4 CU PAGKzctwh75-53YvfrOhiohealth Riverside Methodist HospitalComment on above:Performed By: #### L400.0202, L400.0302, L400.2200, L400.2500, L400.5100, L404.6500 ####Main Laboratory ([facility])[address], [place] [phone] Sandy, MDMono- Auto Diff7.7 %Normal2-10[facility] Methodist HospitalComment on above:Performed By: #### L400.0202, L400.0302, L400.2200, L400.2500, L400.5100, L404.6500 ####Main Laboratory ([facility])[address], [place] [phone] Sandy, MDNeut-Auto Diff64.3 % Dglwtx61-97NcplOhiohealth Riverside Methodist HospitalComment on above:Performed By: #### L400.0202, L400.0302, L400.2200, L400.2500, L400.5100, L404.6500 ####Main Laboratory ([facility])[address], [place] [phone] Sandy, MDNRBC-Auto0.1 /100 WBCNormal<1LPaulding County HospitalComment on above: Performed By: #### L400.0202, L400.0302, L400.2200, L400.2500, L400.5100, L404.6500 ####[facility] ([facility])[address] [phone] Sandy, MDPlatelets Auto #/vol (Bld)295 th/cmmNormal 150-400Ohio[facility] Methodist HospitalComment on above:Performed By: #### L400.0202, L400.0302, L400.2200, L400.2500, L400.5100, L404.6500 ####[facility] ([facility])[address] [phone] Sandy, MDRBC Auto #/vol (Bld)2.61 mil/cmmLow4.50-6.00[facility] HospitalComment on above: Performed By: #### L400.0202, L400.0302, L400.2200, L400.2500, L400.5100, L404.6500 ####[facility] ([facility])[address] [phone] Sandy, MDWBC Auto #/vol (Bld)12.9 th/cmmHigh4.4-10.5[facility] HospitalComment on above:Performed By: #### L400.0202, L400.0302, L400.2200, L400.2500, L400.5100, L404.6500 ####[facility] ([facility])[address] [phone] Sandy, MDMagnesiumon 55-95-1155Zfjmrndyv mass conc1.8 mg/dLNormal1.8-2.5[facility] Comment on above:Performed By: #### L400.0202, L400.0302, L400.2200, L400.2500, L400.5100, L404.6500 ####[facility] ([facility])[address], [place] [phone] Sandy, MDPhosphoruson 63-59-1731Ldbflnbpd mass conc3.5 mg/dLNormal2.4-4.7[facility] HospitalComment on above:Performed By: #### L400.0202, L400.0302, L400.2200, L400.2500, L400.5100, L404.6500 ####[facility] ([facility])[address] [place], [place] [phone] Sandy, MDBasic Metabolic,Non-Fastingon 50-70-8637Oiopw gap 3 molar conc7 mmol/LNormal 4-12[facility] HospitalComment on above:Performed By: #### L400.0202, L400.0302, L400.2200, L400.2500, L400.5100, L404.6500 ####[facility] ([facility])[address] [place], [place] [phone] Sandy, MDCalcium mass conc8.3 mg/dLLow8.8-10.5[facility] HospitalComment on above: Performed By: #### L400.0202, L400.0302, L400.2200, L400.2500, L400.5100, L404.6500 ####[facility] ([facility])[address] [place], [place] [phone] Sandy, MDChloride molar waif158 mmol/PVgqtrc928-708ArzoOhiohealth Riverside Methodist HospitalComment on above:Performed By: #### L400.0202, L400.0302, L400.2200, L400.2500, L400.5100, L404.6500 ####[facility] ([facility])[address] [place], [place] [phone] Sandy, MDCO2 molar conc23 mmol/HAinkxj62-47IbcaOhiohealth Riverside Methodist HospitalComment on above:Performed By: #### L400.0202, L400.0302, L400.2200, L400.2500, L400.5100, L404.6500 ####[facility] ([facility])[address] [place] [phone] Nivar, MDCreatinine mass conc1.21 mg/dLNormal0.70-1.30[facility] Comment on above:Performed By: #### L400.0202, L400.0302, L400.2200, L400.2500, L400.5100, L404.6500 ####[facility] ([facility])[address] [phone] Nivar, MDGFR/1.73 sq M predicted among non-blacks MDRD vol rate/area (S/P/Bld)mL/min/{1.73_m2}NormalOhiohealth Riverside Methodist HospitalComment on above:Result Comment: Chronic Kidney Disease stages by NKDFStage eGFR I >90 II 60-89 III 30-59 IV 15-29 V <15 or dialysisAGE(years) AVERAGE GFR 50-59 93 ml/min/1.73 square metersNote:This result is normalized to 1.73 square meter body surface area. Height and weight are not factored.Performed By: #### L400.0202, L400.0302, L400.2200, L400.2500, L400.5100, L404.6500 ####[facility] ([facility])[address] [place] [phone] Nivar, MDGlucose mass aoje917 mg/pPOoezwt37-763CcdaOhiohealth Riverside Methodist HospitalComment on above:Result Comment: *This reference range applies to fasting specimens only.Performed By: #### L400.0202, L400.0302, L400.2200, L400.2500, L400.5100, L404.6500 ####[facility] ([facility])[address] [place], [place] [phone] Sandy, MDPotassium molar conc 3.8 mmol/LNormal3.6-5.0[facility] HospitalComment on above:Performed By: #### L400.0202, L400.0302, L400.2200, L400.2500, L400.5100, L404.6500 ####[facility] ([facility])[address], [place] [phone] Sandy, MDSodium molar cevd665 mmol/AKpaenm970-896VefiOhiohealth Riverside Methodist HospitalComment on above:Result Comment: Delta: 146 on 02/26/18Performed By: #### L400.0202, L400.0302, L400.2200, L400.2500, L400.5100, L404.6500 ####[facility] ([facility])[address] [place], [place] [phone] Nivar, MDUrea nitrogen mass conc24 mg/dLHigh7-20[facility] HospitalComment on above: Performed By: #### L400.0202, L400.0302, L400.2200, L400.2500, L400.5100, L404.6500 ####[facility] ([facility])[address] [place] [phone] Sandy, MDMagnesiumon 93-66-3925Ftwdgaivd mass conc1.6 mg/dLLow1.8-2.5[facility] HospitalComment on above:Performed By: #### L400.0202, L400.0302, L400.2200, L400.2500, L400.5100, L404.6500 ####[facility] ([facility])[address] [place], [place] [phone] Sandy, MDPhosphoruson 34-97-1143Aoucclhqz mass conc3.0 mg/dLNormal2.4-4.7[facility] HospitalComment on above:Performed By: #### L400.0202, L400.0302, L400.2200, L400.2500, L400.5100, L404.6500 ####[facility] ([facility])[address] [place], [place] [phone] Sandy, MDBasic Metabolic,Non-Fastingon 44-53-1319Juewx gap 3 molar conc10 mmol/LNormal4-12[facility] HospitalComment on above:Performed By: #### L400.0202, L400.0302, L400.2200, L400.2500, L400.5100, L404.6500 ####[facility] ([facility])[address] [place], [place] [phone] Sandy, MDCalcium mass conc8.7 mg/dLLow8.8-10.5[facility] HospitalComment on above:Performed By: #### L400.0202, L400.0302, L400.2200, L400.2500, L400.5100, L404.6500 ####[facility] ([facility])[address] [place], [place] [phone] Sandy, MDChloride molar evqv795 mmol/LKwyq418-989KixjOhiohealth Riverside Methodist HospitalComment on above:Performed By: #### L400.0202, L400.0302, L400.2200, L400.2500, L400.5100, L404.6500 ####[facility] ([facility])[address] [place], [place] [phone] Sandy, MDCO2 molar conc22 mmol/TBetbcn10-93KgjvOhiohealth Riverside Methodist HospitalComment on above:Performed By: #### L400.0202, L400.0302, L400.2200, L400.2500, L400.5100, L404.6500 ####[facility] ([facility])[address] [place], [place] [phone] Sandy, MDCreatinine mass conc 1.28 mg/dLNormal0.70-1.30[facility] HospitalComment on above:Performed By: #### L400.0202, L400.0302, L400.2200, L400.2500, L400.5100, L404.6500 ####[facility] ([facility])[address], [place] [phone] Sandy, MDGFR/1.73 sq M predicted among non-blacks MDRD vol rate/area (S/P/Bld)mL/min/{1.73_m2}NormalOhiohealth Riverside Methodist HospitalComment on above:Result Comment: Chronic Kidney Disease stages by NKDFStage eGFR I >90 II 60-89 III 30-59 IV 15-29 V <15 or dialysisAGE(years) AVERAGE GFR 50-59 93 ml/min/1.73 square metersNote:This result is normalized to 1.73 square meter body surface area. Height and weight are not factored.Performed By: #### L400.0202, L400.0302, L400.2200, L400.2500, L400.5100, L404.6500 ####[facility] ([facility])[address] [place], [place] [phone] Sandy, MDGlucose mass afoc427 mg/sEXhvqjb93-281KxiaOhiohealth Riverside Methodist HospitalComment on above:Result Comment: *This reference range applies to fasting specimens only.Performed By: #### L400.0202, L400.0302, L400.2200, L400.2500, L400.5100, L404.6500 ####[facility] ([facility])[address] [place] [phone] Sandy, MDPotassium molar conc 3.6 mmol/LNormal3.6-5.0[facility] HospitalComment on above:Performed By: #### L400.0202, L400.0302, L400.2200, L400.2500, L400.5100, L404.6500 ####[facility] ([facility])[address] [place] [phone] Sandy, MDSodium molar hbja159 mmol/ZViox968-812MibeOhiohealth Riverside Methodist HospitalComment on above:Performed By: #### L400.0202, L400.0302, L400.2200, L400.2500, L400.5100, L404.6500 ####[facility] ([facility])[address] [place] [phone] Sandy, MDUrea nitrogen mass conc27 mg/dLHigh7-20[facility] HospitalComment on above:Performed By: #### L400.0202, L400.0302, L400.2200, L400.2500, L400.5100, L404.6500 ####[facility] ([facility])[address] [place] [phone] Sandy, MDMagnesiumon 24-14-9625Dboabotjv mass conc1.9 mg/dLNormal1.8-2.5[facility] Comment on above:Performed By: #### L400.0202, L400.0302, L400.2200, L400.2500, L400.5100, L404.6500 ####[facility] ([facility])[address] [place] [phone] Sandy, MDPhosphoruson 06-37-0282Vmiaunjvx mass conc3.5 mg/dLNormal2.4-4.7[facility] HospitalComment on above:Performed By: #### L400.0202, L400.0302, L400.2200, L400.2500, L400.5100, L404.6500 ####[facility] ([facility])[address] [place] [phone] Sandy, Basic Metabolic,Non-Fastingon 80-48-4737Hzsux gap 3 molar conc9 mmol/LNormal 4-12[facility] HospitalComment on above:Performed By: #### L400.0202, L400.0302, L400.2200, L400.2500, L400.5100, L404.6500 ####[facility] ([facility])[address] [place], [place] [phone] Sandy, MDCalcium mass conc8.2 mg/dLLow8.8-10.5[facility] HospitalComment on above: Performed By: #### L400.0202, L400.0302, L400.2200, L400.2500, L400.5100, L404.6500 ####[facility] ([facility])[address] [place], [place] [phone] Sandy, MDChloride molar uwbr131 mmol/HVbxx453-287ScgmOhiohealth Riverside Methodist HospitalComment on above:Performed By: #### L400.0202, L400.0302, L400.2200, L400.2500, L400.5100, L404.6500 ####[facility] ([facility])[address] [place], [place] [phone] Sandy, MDCO2 molar conc22 mmol/APtockw38-42LeilOhiohealth Riverside Methodist HospitalComment on above:Performed By: #### L400.0202, L400.0302, L400.2200, L400.2500, L400.5100, L404.6500 ####[facility] ([facility])[address] [place], [place] [phone] Sandy, MDCreatinine mass conc1.32 mg/dLHigh0.70-1.30[facility] HospitalComment on above:Performed By: #### L400.0202, L400.0302, L400.2200, L400.2500, L400.5100, L404.6500 ####[facility] ([facility])[address] [place] [phone] Nivar, MDGFR/1.73 sq M predicted among non-blacks MDRD vol rate/area (S/P/Bld)mL/min/{1.73_m2}NormalOhiohealth Riverside Methodist HospitalComment on above:Result Comment: Chronic Kidney Disease stages by NKDFStage eGFR I >90 II 60-89 III 30-59 IV 15-29 V <15 or dialysisAGE(years) AVERAGE GFR 50-59 93 ml/min/1.73 square metersNote:This result is normalized to 1.73 square meter body surface area. Height and weight are not factored.Performed By: #### L400.0202, L400.0302, L400.2200, L400.2500, L400.5100, L404.6500 ####[facility] ([facility])[address] [place], [place] [phone] Nivar, MDGlucose mass conc96 mg/gTZoyltx70-679DqcbOhiohealth Riverside Methodist HospitalComment on above:Result Comment: *This reference range applies to fasting specimens only.Performed By: #### L400.0202, L400.0302, L400.2200, L400.2500, L400.5100, L404.6500 ####[facility] ([facility])[address] [place], [place] [phone] Nivar, MDPotassium molar conc 3.3 mmol/LLow3.6-5.0[facility] HospitalComment on above:Performed By: #### L400.0202, L400.0302, L400.2200, L400.2500, L400.5100, L404.6500 ####[facility] ([facility])[address] [place], [place] [phone] Sandy, MDSodium molar dlel363 mmol/LInvalid Interpretation Vsvc858-319VhcjOhiohealth Riverside Methodist HospitalComment on above:Result Comment: Delta: 140 on 02/24/183 Performed By: #### L400.0202, L400.0302, L400.2200, L400.2500, L400.5100, L404.6500 ####[facility] ([facility])[address] [place], [place] [phone] Nivar, MDUrea nitrogen mass conc30 mg/dLHigh7-20[facility] HospitalComment on above:Performed By: #### L400.0202, L400.0302, L400.2200, L400.2500, L400.5100, L404.6500 ####[facility] ([facility])[address] [place] [phone] Sandy, MDCBC with Differentialon 88-44-3857Jzq Baso Durma070 /cmmNormal0-200[facility] HospitalComment on above:Performed By: #### L400.0202, L400.0302, L400.2200, L400.2500, L400.5100, L404.6500 ####[facility] ([facility])[address] [place], [place] [phone] Sandy, MDAbs Eos Whzuz636 /cmmNormal0-500 [facility] HospitalComment on above:Performed By: #### L400.0202, L400.0302, L400.2200, L400.2500, L400.5100, L404.6500 ####[facility] ([facility])[address], [place] [phone] Sandy, MDAbs [place] Yrwfo785 /cmmHigh0-800[facility] HospitalComment on above:Performed By: #### L400.0202, L400.0302, L400.2200, L400.2500, L400.5100, L404.6500 ####[facility] ([facility])[address], [place] [phone] Sandy, MDAbs Neut Yruyq6681 /exsKmud1208-8194KauzOhiohealth Riverside Methodist HospitalComment on above:Performed By: #### L400.0202, L400.0302, L400.2200, L400.2500, L400.5100, L404.6500 ####[facility] ([facility])[address], [place] [phone] MD SandyBasophils Auto #/vol (Bld)0.4 %Normal0-2LPaulding County HospitalComment on above:Performed By: #### L400.0202, L400.0302, L400.2200, L400.2500, L400.5100, L404.6500 ####[facility] ([facility])[address], [place] [phone] MD SandyEOS-Auto Diff3.0 % Normal0-6[facility] HospitalComment on above:Performed By: #### L400.0202, L400.0302, L400.2200, L400.2500, L400.5100, L404.6500 ####[facility] ([facility])[address], [place] [phone] Nivar, MDErythrocyte distribution width Auto Ratio (RBC)17.8 %High12.0-16.0[facility] HospitalComment on above:Performed By: #### L400.0202, L400.0302, L400.2200, L400.2500, L400.5100, L404.6500 ####[facility] ([facility])[address], [place] [phone] Nivar, MDHematocrit Auto Volume Fraction (Bld)23.6 %Low40.0-49.0[facility] HospitalComment on above:Performed By: #### L400.0202, L400.0302, L400.2200, L400.2500, L400.5100, L404.6500 ####[facility] ([facility])[address] [phone] Nivar, MDHemoglobin mass conc (Bld)7.4 g/dLLow13.5-16.5 [facility] HospitalComment on above:Performed By: #### L400.0202, L400.0302, L400.2200, L400.2500, L400.5100, L404.6500 ####[facility] ([facility])[address] [place], [place] [phone] Nivar, MD Lymphocytes Auto #/vol (Bld)3000 /iqgDzivln3067-8450FakoOhiohealth Riverside Methodist Hospital Comment on above:Performed By: #### L400.0202, L400.0302, L400.2200, L400.2500, L400.5100, L404.6500 ####[facility] ([facility])[address] [place] [phone] Nivar, MDLymphocytes/100 WBC Auto (Bld)21.1 %Wtewhi65-83 [facility] HospitalComment on above:Performed By: #### L400.0202, L400.0302, L400.2200, L400.2500, L400.5100, L404.6500 ####[facility] ([facility])[address] [place], [place] [phone] Nivar, MDMCH Auto Entitic mass (RBC)29.1 hbUlvala85.5-33.0[facility] HospitalComment on above:Performed By: #### L400.0202, L400.0302, L400.2200, L400.2500, L400.5100, L404.6500 ####[facility] ([facility])[address], [place] [phone] Sandy, MDMCHC Auto mass conc (RBC)31.3 g/dLLow33.0-36.0 [facility] HospitalComment on above:Performed By: #### L400.0202, L400.0302, L400.2200, L400.2500, L400.5100, L404.6500 ####[facility] ([facility])[address], [place] [phone] Sandy, MDMCV Auto Entitic volume (RBC)93.2 CU JKGGiyaiz97-64UncxOhiohealth Riverside Methodist HospitalComment on above:Performed By: #### L400.0202, L400.0302, L400.2200, L400.2500, L400.5100, L404.6500 ####[facility] ([facility])[address], [place] [phone] Sandy, MDMono- Auto Diff6.6 %Normal2-10[facility] HospitalComment on above:Performed By: #### L400.0202, L400.0302, L400.2200, L400.2500, L400.5100, L404.6500 ####[facility] ([facility])[address], [place] [phone] Sandy, MDNeut-Auto Diff68.9 % Frmnjt11-69PvshOhiohealth Riverside Methodist HospitalComment on above:Performed By: #### L400.0202, L400.0302, L400.2200, L400.2500, L400.5100, L404.6500 ####[facility] ([facility])[address], [place] [phone] Sandy, MDNRBC-Auto0.1 /100 WBCNormal<1LPaulding County HospitalComment on above: Performed By: #### L400.0202, L400.0302, L400.2200, L400.2500, L400.5100, L404.6500 ####[facility] ([facility])[address] [phone] Sandy MDPlatelets Auto #/vol (Bld)304 th/cmmNormal 150-400Ohio[facility] Methodist HospitalComment on above:Performed By: #### L400.0202, L400.0302, L400.2200, L400.2500, L400.5100, L404.6500 ####[facility] ([facility])[address] [phone] Nivar, MDRBC Auto #/vol (Bld)2.53 mil/cmmLow4.50-6.00[facility] HospitalComment on above: Performed By: #### L400.0202, L400.0302, L400.2200, L400.2500, L400.5100, L404.6500 ####[facility] ([facility])[address] [phone] Nivar, MDWBC Auto #/vol (Bld)14.1 th/cmmHigh4.4-10.5[facility] HospitalComment on above:Performed By: #### L400.0202, L400.0302, L400.2200, L400.2500, L400.5100, L404.6500 ####[facility] ([facility])[address] [phone] Nivar, MDFerritinon 55-70-4192Mqmkakql [Mass/volume] in Serum or Iirlmx7112 ng/iCWwnh38-979EnxkOhiohealth Riverside Methodist HospitalComment on above:Performed By: #### L400.0202, L400.0302, L400.2200, L400.2500, L400.5100, L404.6500 ####[facility] ([facility])[address], [place] [phone] Nivar, MDHepatic Function Panel (Liver)on 80-92-3432Ktbewkt mass conc3.2 g/dLLow3.5-5.0[facility] HospitalComment on above:Performed By: #### L400.0202, L400.0302, L400.2200, L400.2500, L400.5100, L404.6500 ####[facility] ([facility])[address] [place], [place] [phone] Sandy, MDAlk Aelj346 IU/L Wphjwu81-092SojyOhiohealth Riverside Methodist HospitalComment on above:Performed By: #### L400.0202, L400.0302, L400.2200, L400.2500, L400.5100, L404.6500 ####[facility] ([facility])[address] [place], [place] [phone] Nivar, MDALT/SGPT32 IU/CMkuhfx17-18EbbxOhiohealth Riverside Methodist HospitalComment on above: Performed By: #### L400.0202, L400.0302, L400.2200, L400.2500, L400.5100, L404.6500 ####[facility] ([facility])[address] [place], [place] [phone] Sandy, MDAST/SGOT33 IU/EOcjcao82-92LmahOhiohealth Riverside Methodist HospitalComment on above:Performed By: #### L400.0202, L400.0302, L400.2200, L400.2500, L400.5100, L404.6500 ####[facility] ([facility])[address] [place], [place] [phone] MD SandyBili, Total0.5 mg/dLNormal0.2-1.0 [facility] HospitalComment on above:Performed By: #### L400.0202, L400.0302, L400.2200, L400.2500, L400.5100, L404.6500 ####[facility] ([facility])[address] [place] [phone] Nivar, MD Bili,Direct0.1 mg/dLNormal0.1-0.2LPaulding County HospitalComment on above: Performed By: #### L400.0202, L400.0302, L400.2200, L400.2500, L400.5100, L404.6500 ####[facility] ([facility])[address] [place], [place] [phone] Nivar, MDProtein mass conc7.8 g/dLNormal6.2-8.0[facility] HospitalComment on above:Performed By: #### L400.0202, L400.0302, L400.2200, L400.2500, L400.5100, L404.6500 ####[facility] ([facility])[address] [place], [place] [phone] Nivar, MDIron Binding and Saturationon 48-02-3721Wrol, Serum59 mcg/eFUasujd35-725WahtOhiohealth Riverside Methodist HospitalComment on above:Performed By: #### L400.0202, L400.0302, L400.2200, L400.2500, L400.5100, L404.6500 ####Main Laboratory ([facility])[address] [place], [place] [phone] Nivar, MDTransferrin mass taxi408 mg/dLLow 180-329Ohio[facility] HospitalComment on above:Performed By: #### L400.0202, L400.0302, L400.2200, L400.2500, L400.5100, L404.6500 ####Main Laboratory ([facility])[address] [place], [place] [phone] Nivar, MD% Iron Exrbnrvwrx26 %Esxule18-32QvnqOhiohealth Riverside Methodist HospitalComment on above:Performed By: #### L400.0202, L400.0302, L400.2200, L400.2500, L400.5100, L404.6500 ####Main Laboratory ([facility])[address] [phone] Sandy, MDMagnesiumon 76-77-4064Ahwvbkgtg mass conc1.6 mg/dLLow1.8-2.5[facility] HospitalComment on above:Performed By: #### L400.0202, L400.0302, L400.2200, L400.2500, L400.5100, L404.6500 ####Main Laboratory ([facility])[address] [phone] Sandy, MDPhosphoruson 36-49-6241Mhhscybqo mass conc3.6 mg/dLNormal2.4-4.7[facility] Methodist HospitalComment on above:Performed By: #### L400.0202, L400.0302, L400.2200, L400.2500, L400.5100, L404.6500 ####Main Laboratory ([facility])[address] [phone] Sandy, MDReticulocyte Counton 55-58-4949Qyiokfuqdvvr Count1.60 %Normal0.90-2.60[facility] Comment on above:Performed By: #### L400.0202, L400.0302, L400.2200, L400.2500, L400.5100, L404.6500 ####Main Laboratory ([facility])[address] [phone] Sandy, MDBasic Metabolic,Non-Fastingon 45-19-1938Nbqwz gap 3 molar conc9 mmol/LNormal4-12[facility] HospitalComment on above: Performed By: #### L400.0202, L400.0302, L400.2200, L400.2500, L400.5100, L404.6500 ####Main Laboratory ([facility])[address], [place] [phone] Sandy, MDCalcium mass conc8.1 mg/dLLow8.8-10.5[facility] HospitalComment on above:Performed By: #### L400.0202, L400.0302, L400.2200, L400.2500, L400.5100, L404.6500 ####Main Laboratory ([facility])[address], [place] [phone] Sandy, MDChloride molar conc 110 mmol/NVenabi968-940ThppOhiohealth Riverside Methodist HospitalComment on above:Performed By: #### L400.0202, L400.0302, L400.2200, L400.2500, L400.5100, L404.6500 ####Main Laboratory ([facility])[address], [place] [phone] Sandy, MDCO2 molar conc21 mmol/YQwvomj17-78HyonOhiohealth Riverside Methodist HospitalComment on above: Performed By: #### L400.0202, L400.0302, L400.2200, L400.2500, L400.5100, L404.6500 ####Main Laboratory ([facility])[address], [place] [phone] Sandy, MDCreatinine mass conc1.42 mg/dLHigh0.70-1.30[facility] HospitalComment on above:Performed By: #### L400.0202, L400.0302, L400.2200, L400.2500, L400.5100, L404.6500 ####Main Laboratory ([facility])[address], [place] [phone] Sandy, MDGFR/1.73 sq M predicted among non-blacks MDRD vol rate/area (S/P/Bld)mL/min/{1.73_m2}Normal [facility] HospitalComment on above:Result Comment: Chronic Kidney Disease stages by NKDFStage eGFR I >90 II 60-89 III 30-59 IV 15-29 V <15 or dialysisAGE(years) AVERAGE GFR 50-59 93 ml/min/1.73 square metersNote:This result is normalized to 1.73 square meter body surface area. Height and weight are not factored.Performed By: #### L400.0202, L400.0302, L400.2200, L400.2500, L400.5100, L404.6500 ####Main Laboratory ([facility])[address], [place] [phone] Sandy, MDGlucose mass kxbk663 mg/pOIfdk69-840UeckOhiohealth Riverside Methodist HospitalComment on above: Performed By: #### L400.0202, L400.0302, L400.2200, L400.2500, L400.5100, L404.6500 ####Main Laboratory ([facility])[address], [place] [phone] Sandy, MDPotassium molar conc3.7 mmol/LNormal3.6-5.0[facility] HospitalComment on above:Performed By: #### L400.0202, L400.0302, L400.2200, L400.2500, L400.5100, L404.6500 ####Main Laboratory ([facility])[address], [place] [phone] Sandy, MDSodium molar uewv461 mmol/SVrombk472-710VozuOhiohealth Riverside Methodist HospitalComment on above:Performed By: #### L400.0202, L400.0302, L400.2200, L400.2500, L400.5100, L404.6500 ####Main Laboratory ([facility])[address], [place] [phone] Nivar, MDUrea nitrogen mass conc32 mg/dLHigh7-20[facility] HospitalComment on above:Performed By: #### L400.0202, L400.0302, L400.2200, L400.2500, L400.5100, L404.6500 ####Main Laboratory ([facility])[address] [place] [phone] Nivar, MDIonized Calciumon 12-86-5698Xbtjwxp Calcium1.16 mmol/LNormal1.15-1.29[facility] HospitalComment on above:Performed By: #### L400.0202, L400.0302, L400.2200, L400.2500, L400.5100, L404.6500 ####Main Laboratory ([facility])[address] [phone] Nivar, MDMagnesiumon 61-94-1327Qrcaldtlu mass conc1.9 mg/dLNormal1.8-2.5[facility] HospitalComment on above:Performed By: #### L400.0202, L400.0302, L400.2200, L400.2500, L400.5100, L404.6500 ####Main Laboratory ([facility])[address] [place] [phone] Nivar, MDPhosphoruson 03-69-3311Pwibwhchk mass conc4.1 mg/dLNormal2.4-4.7[facility] Comment on above:Performed By: #### L400.0202, L400.0302, L400.2200, L400.2500, L400.5100, L404.6500 ####Main Laboratory ([facility])[address] [place] [phone] Nivar, MDBasic Metabolic,Non-Fastingon 83-01-1537Qmowx gap 3 molar conc10 mmol/LNormal4-12[facility] HospitalComment on above: Performed By: #### L400.0202, L400.0302, L400.2200, L400.2500, L400.5100, L404.6500 ####Main Laboratory ([facility])[address], [place] [phone] Sandy, MDCalcium mass conc8.0 mg/dLLow8.8-10.5[facility] HospitalComment on above:Performed By: #### L400.0202, L400.0302, L400.2200, L400.2500, L400.5100, L404.6500 ####Main Laboratory ([facility])[address], [place] [phone] Sandy, MDChloride molar conc 112 mmol/FLvsh796-935UmhmOhiohealth Riverside Methodist HospitalComment on above:Performed By: #### L400.0202, L400.0302, L400.2200, L400.2500, L400.5100, L404.6500 ####Main Laboratory ([facility])[address], [place] [phone] Sandy, MDCO2 molar conc19 mmol/GEro76-30PkdcOhiohealth Riverside Methodist HospitalComment on above: Performed By: #### L400.0202, L400.0302, L400.2200, L400.2500, L400.5100, L404.6500 ####Main Laboratory ([facility])[address], [place] [phone] Sandy, MDCreatinine mass conc1.29 mg/dLNormal0.70-1.30 [facility] HospitalComment on above:Performed By: #### L400.0202, L400.0302, L400.2200, L400.2500, L400.5100, L404.6500 ####Main Laboratory ([facility])[address], [place] [phone] Nivar, MDGFR/1.73 sq M predicted among non-blacks MDRD vol rate/area (S/P/Bld)mL/min/{1.73_m2} NormalOhiohealth Riverside Methodist HospitalComment on above:Result Comment: Chronic Kidney Disease stages by NKDFStage eGFR I >90 II 60-89 III 30-59 IV 15-29 V <15 or dialysisAGE(years) AVERAGE GFR 50-59 93 ml/min/1.73 square metersNote:This result is normalized to 1.73 square meter body surface area. Height and weight are not factored.Performed By: #### L400.0202, L400.0302, L400.2200, L400.2500, L400.5100, L404.6500 ####Main Laboratory ([facility])[address], [place] [phone] Nivar, MDGlucose mass conc97 mg/wABbrtfn54-459SuhvOhiohealth Riverside Methodist HospitalComment on above:Result Comment: *This reference range applies to fasting specimens only.Performed By: #### L400.0202, L400.0302, L400.2200, L400.2500, L400.5100, L404.6500 ####Main Laboratory ([facility])[address], [place] [phone] Sanyd, MDPotassium molar conc3.8 mmol/LNormal3.6-5.0[facility] HospitalComment on above:Performed By: #### L400.0202, L400.0302, L400.2200, L400.2500, L400.5100, L404.6500 ####Main Laboratory ([facility])[address], [place] [phone] Sandy, MDSodium molar czbw312 mmol/WBwjacd255-981RrbuOhiohealth Riverside Methodist HospitalComment on above:Performed By: #### L400.0202, L400.0302, L400.2200, L400.2500, L400.5100, L404.6500 ####Main Laboratory ([facility])[address] [place] [phone] Nivar, MDUrea nitrogen mass conc32 mg/dLHigh7-20[facility] HospitalComment on above:Performed By: #### L400.0202, L400.0302, L400.2200, L400.2500, L400.5100, L404.6500 ####Main Laboratory ([facility])[address] [phone] Nivar, MDMagnesiumon 17-27-6298Yhzpedewb mass conc1.6 mg/dLLow1.8-2.5[facility] HospitalComment on above:Performed By: #### L400.0202, L400.0302, L400.2200, L400.2500, L400.5100, L404.6500 ####Main Laboratory ([facility])[address] [place] [phone] Nivar, MDPhosphoruson 24-02-3139Ftdfixdsk mass conc4.0 mg/dLInvalid Interpretation Code2.4-4.7[facility] HospitalComment on above:Result Comment: Delta: 1.8 on 02/22/18-0402Performed By: #### L400.0202, L400.0302, L400.2200, L400.2500, L400.5100, L404.6500 ####Main Laboratory ([facility])[address] [place] [place] [phone] Nivar, MDBasic Metabolic,Non-Fastingon 90-62-4625Lmwpf gap 3 molar conc8 mmol/LNormal4-12[facility] HospitalComment on above: Performed By: #### L400.0202, L400.0302, L400.2200, L400.2500, L400.5100, L404.6500 ####Main Laboratory ([facility])[address], [place] [phone] Sandy, MDCalcium mass conc8.1 mg/dLLow8.8-10.5[facility] HospitalComment on above:Performed By: #### L400.0202, L400.0302, L400.2200, L400.2500, L400.5100, L404.6500 ####Main Laboratory ([facility])[address], [place] [phone] Sandy, MDChloride molar conc 114 mmol/GNahd004-604XidrOhiohealth Riverside Methodist HospitalComment on above:Performed By: #### L400.0202, L400.0302, L400.2200, L400.2500, L400.5100, L404.6500 ####Main Laboratory ([facility])[address], [place] [phone] Sandy, MDCO2 molar conc20 mmol/FKdz39-61VdcdOhiohealth Riverside Methodist HospitalComment on above: Performed By: #### L400.0202, L400.0302, L400.2200, L400.2500, L400.5100, L404.6500 ####Main Laboratory ([facility])[address], [place] [phone] Sandy, MDCreatinine mass conc1.21 mg/dLNormal0.70-1.30 [facility] HospitalComment on above:Performed By: #### L400.0202, L400.0302, L400.2200, L400.2500, L400.5100, L404.6500 ####Main Laboratory ([facility])[address], [place] [phone] Sandy, MDGFR/1.73 sq M predicted among non-blacks MDRD vol rate/area (S/P/Bld)mL/min/{1.73_m2} NormalOhiohealth Riverside Methodist HospitalComment on above:Result Comment: Chronic Kidney Disease stages by NKDFStage eGFR I >90 II 60-89 III 30-59 IV 15-29 V <15 or dialysisAGE(years) AVERAGE GFR 50-59 93 ml/min/1.73 square metersNote:This result is normalized to 1.73 square meter body surface area. Height and weight are not factored.Performed By: #### L400.0202, L400.0302, L400.2200, L400.2500, L400.5100, L404.6500 ####Main Laboratory ([facility])[address] [place], [place] [phone] Sandy, MDGlucose mass uokj599 mg/iLTmkdqi12-536GmlfOhiohealth Riverside Methodist HospitalComment on above:Result Comment: *This reference range applies to fasting specimens only.Performed By: #### L400.0202, L400.0302, L400.2200, L400.2500, L400.5100, L404.6500 ####Main Laboratory ([facility])[address] [place], [place] [phone] Sandy, MDPotassium molar conc4.3 mmol/LNormal3.6-5.0[facility] HospitalComment on above:Performed By: #### L400.0202, L400.0302, L400.2200, L400.2500, L400.5100, L404.6500 ####Main Laboratory ([facility])[address] [place], [place] [phone] Sandy, MDSodium molar wmwo324 mmol/FJulfua014-729MeqtOhiohealth Riverside Methodist HospitalComment on above:Performed By: #### L400.0202, L400.0302, L400.2200, L400.2500, L400.5100, L404.6500 ####Main Laboratory ([facility])[address], [place] [phone] Nivar, MDUrea nitrogen mass conc35 mg/dLHigh7-20[facility] HospitalComment on above:Performed By: #### L400.0202, L400.0302, L400.2200, L400.2500, L400.5100, L404.6500 ####Main Laboratory ([facility])[address], [place] [phone] Sandy, MDCBC with Differentialon 42-02-1886Fxi Baso Nlwvx133 /cmmNormal0-200[facility] HospitalComment on above:Performed By: #### L400.0202, L400.0302, L400.2200, L400.2500, L400.5100, L404.6500 ####Main Laboratory ([facility])[address], [place] [phone] Sandy, MDAbs Eos Xyhwz436 /cmmHigh0-500[facility] HospitalComment on above:Performed By: #### L400.0202, L400.0302, L400.2200, L400.2500, L400.5100, L404.6500 ####Main Laboratory ([facility])[address], [place] [phone] Sandy, MDAbs [place] Dvxvb0111 /cmmHigh0-800[facility] HospitalComment on above: Performed By: #### L400.0202, L400.0302, L400.2200, L400.2500, L400.5100, L404.6500 ####Main Laboratory ([facility])[address], [place] [phone] Sandy, MDAbs Neut Tirtu61664 /aihHiuf4764-5696VjqqOhiohealth Riverside Methodist HospitalComment on above:Performed By: #### L400.0202, L400.0302, L400.2200, L400.2500, L400.5100, L404.6500 ####Main Laboratory ([facility])[address], [place] [phone] Nivar, MDBasophils Auto #/vol (Bld)0.5 %Normal0-2LPaulding County HospitalComment on above:Performed By: #### L400.0202, L400.0302, L400.2200, L400.2500, L400.5100, L404.6500 ####Main Laboratory ([facility])[address], [place] [phone] Nivar, MDEOS-Auto Diff3.5 %Normal0-6[facility] HospitalComment on above: Performed By: #### L400.0202, L400.0302, L400.2200, L400.2500, L400.5100, L404.6500 ####Main Laboratory ([facility])[address], [place] [phone] Nivar, MDErythrocyte distribution width Auto Ratio (RBC) 17.0 %High12.0-16.0[facility] HospitalComment on above:Performed By: #### L400.0202, L400.0302, L400.2200, L400.2500, L400.5100, L404.6500 ####Main Laboratory ([facility])[address], [place] [phone] Nivar, MDHematocrit Auto Volume Fraction (Bld)27.2 %Low40.0-49.0[facility] HospitalComment on above:Performed By: #### L400.0202, L400.0302, L400.2200, L400.2500, L400.5100, L404.6500 ####Main Laboratory ([facility])[address], [place] [phone] Nivar, MDHemoglobin mass conc (Bld)8.2 g/dL Low13.5-16.5[facility] HospitalComment on above:Performed By: #### L400.0202, L400.0302, L400.2200, L400.2500, L400.5100, L404.6500 ####Main Laboratory ([facility])[address] [place], [place] [phone] Sandy, MDLymphocytes Auto #/vol (Bld)3600 /qitJepyzi0079-7664QbjhOhiohealth Riverside Methodist HospitalComment on above:Performed By: #### L400.0202, L400.0302, L400.2200, L400.2500, L400.5100, L404.6500 ####Main Laboratory ([facility])[address] [place], [place] [phone] Sandy, MDLymphocytes/100 WBC Auto (Bld)17.6 %Brdzza51-79InqrOhiohealth Riverside Methodist HospitalComment on above:Performed By: #### L400.0202, L400.0302, L400.2200, L400.2500, L400.5100, L404.6500 ####Main Laboratory ([facility])[address] [place], [place] [phone] Sandy, MDMCH Auto Entitic mass (RBC)28.4 tdGrugsn11.5-33.0[facility] Comment on above:Performed By: #### L400.0202, L400.0302, L400.2200, L400.2500, L400.5100, L404.6500 ####Main Laboratory ([facility])[address], [place] [phone] Sandy, MDMCHC Auto mass conc (RBC)30.3 g/dLLow33.0-36.0 [facility] HospitalComment on above:Performed By: #### L400.0202, L400.0302, L400.2200, L400.2500, L400.5100, L404.6500 ####Main Laboratory ([facility])[address], [place] [phone] Sandy, MDMCV Auto Entitic volume (RBC)93.9 CU OUEQgnkqy13-32JkllOhiohealth Riverside Methodist HospitalComment on above:Performed By: #### L400.0202, L400.0302, L400.2200, L400.2500, L400.5100, L404.6500 ####Main Laboratory ([facility])[address], [place] [phone] Sandy, MDMono- Auto Diff4.9 %Normal2-10[facility] HospitalComment on above:Performed By: #### L400.0202, L400.0302, L400.2200, L400.2500, L400.5100, L404.6500 ####Main Laboratory ([facility])[address], [place] [phone] Sandy, MDNeut-Auto Diff73.5 % Xbdi05-11UqnxOhiohealth Riverside Methodist HospitalComment on above:Performed By: #### L400.0202, L400.0302, L400.2200, L400.2500, L400.5100, L404.6500 ####Main Laboratory ([facility])[address], [place] [phone] Sandy, MDNRBC-Auto0.1 /100 WBCNormal<1LPaulding County HospitalComment on above: Performed By: #### L400.0202, L400.0302, L400.2200, L400.2500, L400.5100, L404.6500 ####Main Laboratory ([facility])[address], [place] [phone] Sandy, MDPlatelets Auto #/vol (Bld)377 th/cmmNormal 150-400Ohio[facility] HospitalComment on above:Performed By: #### L400.0202, L400.0302, L400.2200, L400.2500, L400.5100, L404.6500 ####Main Laboratory ([facility])[address] [place] [phone] Sandy, MDRBC Auto #/vol (Bld)2.90 mil/cmmLow4.50-6.00[facility] HospitalComment on above: Performed By: #### L400.0202, L400.0302, L400.2200, L400.2500, L400.5100, L404.6500 ####Main Laboratory ([facility])[address] [place] [phone] Sandy, MDWBC Auto #/vol (Bld)20.5 th/cmmHigh4.4-10.5[facility] HospitalComment on above:Performed By: #### L400.0202, L400.0302, L400.2200, L400.2500, L400.5100, L404.6500 ####Main Laboratory ([facility])[address] [place] [phone] Sandy, MDClostridium difficile by PCRon 88-92-9323Zwwilfwfemn difficile by PCRNegativeNormalNegative [facility] HospitalCommymichigan medical center on above:Result Comment: Methodology: Nucleic Acid Amplification (Polymerase Chain Reaction,PCR)Positive C. Diffs should not be retested for 7 days.No testing on formed stools.For questions, please contact Microbiology lab at [phone].Performance characteristics of this assay have not beenevaluated in patients under 18 years of age. Significanceof positive results in children younger than 1 year isquestionable since they may be asymptomatically colonized.Performed By: #### L400.0202, L400.0302, L400.2200, L400.2500, L400.5100, L404.6500 ####Main Laboratory ([facility])[address] [place], [place] [phone] Nivar, MDHepatic Function Panel (Liver)on 18-56-4267Iboxctu mass conc3.1 g/dLLow3.5-5.0[facility] HospitalComment on above:Performed By: #### L400.0202, L400.0302, L400.2200, L400.2500, L400.5100, L404.6500 ####Main Laboratory ([facility])[address], [place] [phone] Sandy, MDAlk Wrfv688 IU/SFtqr83-764YdfcOhiohealth Riverside Methodist HospitalComment on above:Performed By: #### L400.0202, L400.0302, L400.2200, L400.2500, L400.5100, L404.6500 ####Main Laboratory ([facility])[address], [place] [phone] Nivar, MDALT/SGPT31 IU/HGquxra00-01YrfiOhiohealth Riverside Methodist HospitalComment on above:Performed By: #### L400.0202, L400.0302, L400.2200, L400.2500, L400.5100, L404.6500 ####Main Laboratory ([facility])[address], [place] [phone] Sandy, MDAST/SGOT32 IU/L Lhtnlh55-49KovhOhiohealth Riverside Methodist HospitalComment on above:Performed By: #### L400.0202, L400.0302, L400.2200, L400.2500, L400.5100, L404.6500 ####Main Laboratory ([facility])[address], [place] [phone] Nivar, MDBili,Direct0.1 mg/dLNormal0.1-0.2LPaulding County HospitalComment on above: Performed By: #### L400.0202, L400.0302, L400.2200, L400.2500, L400.5100, L404.6500 ####Main Laboratory ([facility])[address], [place] [phone] Sandy, MDBili,Total0.4 mg/dLNormal0.2-1.0[facility] HospitalComment on above:Performed By: #### L400.0202, L400.0302, L400.2200, L400.2500, L400.5100, L404.6500 ####Main Laboratory ([facility])[address], [place] [phone] Sandy, MDProtein mass conc7.6 g/dLNormal6.2-8.0[facility] HospitalComment on above:Performed By: #### L400.0202, L400.0302, L400.2200, L400.2500, L400.5100, L404.6500 ####Main Laboratory ([facility])[address], [place] [phone] Sandy, MDMagnesiumon 28-30-3910Grzrmuelk mass conc1.6 mg/dLLow1.8-2.5[facility] HospitalComment on above:Performed By: #### L400.0202, L400.0302, L400.2200, L400.2500, L400.5100, L404.6500 ####Main Laboratory ([facility])[address], [place] [phone] Sandy, MDPhosphoruson 56-30-0970Ngxhtbpcm mass conc1.8 mg/dLLow2.4-4.7[facility] Comment on above:Performed By: #### L400.0202, L400.0302, L400.2200, L400.2500, L400.5100, L404.6500 ####Main Laboratory ([facility])[address], [place] [phone] Sandy, MDPrealbuminon 90-33-8055Gzpnrkzsbf mass conc11.7 mg/dLLow16.0-38.0[facility] HospitalComment on above:Performed By: #### L400.0202, L400.0302, L400.2200, L400.2500, L400.5100, L404.6500 ####Main Laboratory ([facility])[address] [place], [place] [phone] Nivar, MDTriglycerideson 48-84-6222Ermizmfkyhxj mass opgi255 mg/dLHigh<150[facility] HospitalComment on above:Performed By: #### L400.0202, L400.0302, L400.2200, L400.2500, L400.5100, L404.6500 ####Main [facility] ([facility])[address], [place] [phone] Nivar, MDBasic Metabolic,Non-Fastingon 67-48-2754Jeyro gap 3 molar conc9 mmol/LNormal4-12[facility] HospitalComment on above:Performed By: #### L400.0202, L400.0302, L400.2200, L400.2500, L400.5100, L404.6500 ####Main [facility] ([facility])[address], [place] [phone] Sandy, MDCalcium mass conc7.6 mg/dLLow8.8-10.5[facility] HospitalComment on above:Performed By: #### L400.0202, L400.0302, L400.2200, L400.2500, L400.5100, L404.6500 ####Main [facility] ([facility])[address] [place], [place] [phone] Sandy, MDChloride molar xzcj989 mmol/JRikl854-925EvsgOhiohealth Riverside Methodist HospitalComment on above:Performed By: #### L400.0202, L400.0302, L400.2200, L400.2500, L400.5100, L404.6500 ####[facility] ([facility])[address] [phone] Sandy, MDCO2 molar conc20 mmol/UNfi67-67BhlkOhiohealth Riverside Methodist HospitalCommymichigan medical center on above:Performed By: #### L400.0202, L400.0302, L400.2200, L400.2500, L400.5100, L404.6500 ####Main [facility] ([facility])[address] [place], [place] [phone] Sandy, MDCreatinine mass conc 1.48 mg/dLHigh0.70-1.30[facility] HospitalCommymichigan medical center on above:Performed By: #### L400.0202, L400.0302, L400.2200, L400.2500, L400.5100, L404.6500 ####Main Laboratory ([facility])[address] [place], [place] [phone] Sandy, MDGFR/1.73 sq M predicted among non-blacks MDRD vol rate/area (S/P/Bld)59 mL/min/{1.73_m2}[facility] CenterCommymichigan medical center on above:Result Comment: Chronic Kidney Disease stages by NKDFStage eGFR I >90 II 60-89 III 30-59 IV 15-29 V <15 or dialysisAGE(years) AVERAGE GFR 50-59 93 ml/min/1.73 square metersNote:This result is normalized to 1.73 square meter body surface area. Height and weight are not factored.Performed By: #### L400.0202, L400.0302, L400.2200, L400.2500, L400.5100, L404.6500 ####[facility] ([facility])[address], [place] [phone] Sandy, MDGlucose mass gzxw794 mg/iFHidu17-189FgqhOhiohealth Riverside Methodist HospitalComment on above:Performed By: #### L400.0202, L400.0302, L400.2200, L400.2500, L400.5100, L404.6500 ####[facility] ([facility])[address] [place], [place] [phone] Sandy, MDPotassium molar conc3.6 mmol/LNormal3.6-5.0[facility] HospitalComment on above:Performed By: #### L400.0202, L400.0302, L400.2200, L400.2500, L400.5100, L404.6500 ####[facility] ([facility])[address] [place], [place] [phone] Sandy, MDSodium molar gvcq760 mmol/ZJsrkkp632-337SmsxOhiohealth Riverside Methodist HospitalComment on above:Performed By: #### L400.0202, L400.0302, L400.2200, L400.2500, L400.5100, L404.6500 ####[facility] ([facility])[address] [place] [phone] Nivar, MDUrea nitrogen mass conc39 mg/dLHigh7-20[facility] HospitalComment on above:Performed By: #### L400.0202, L400.0302, L400.2200, L400.2500, L400.5100, L404.6500 ####[facility] ([facility])[address] [place], [place] [phone] Nivar, MDBasic Metabolic,Non-Fastingon 26-08-7788Aafgz gap 3 molar conc7 mmol/LNormal4-12[facility] HospitalComment on above: Performed By: #### L400.0202, L400.0302, L400.2200, L400.2500, L400.5100, L404.6500 ####[facility] ([facility])[address] [place], [place] [phone] Sandy, MDCalcium mass conc7.6 mg/dLLow8.8-10.5[facility] Methodist HospitalComment on above:Performed By: #### L400.0202, L400.0302, L400.2200, L400.2500, L400.5100, L404.6500 ####[facility] ([facility])[address] [place] [phone] Sandy, MDChloride molar conc 118 mmol/BQywn755-214NonyOhiohealth Riverside Methodist HospitalComment on above:Performed By: #### L400.0202, L400.0302, L400.2200, L400.2500, L400.5100, L404.6500 ####[facility] ([facility])[address] [phone] Sandy, MDCO2 molar conc20 mmol/CIbg49-95UpkuOhiohealth Riverside Methodist HospitalComment on above: Performed By: #### L400.0202, L400.0302, L400.2200, L400.2500, L400.5100, L404.6500 ####[facility] ([facility])[address] [place] [phone] Sandy, MDCreatinine mass conc1.54 mg/dLHigh0.70-1.30[facility] HospitalComment on above:Performed By: #### L400.0202, L400.0302, L400.2200, L400.2500, L400.5100, L404.6500 ####[facility] ([facility])[address] [place] [phone] Sandy, MDGFR/1.73 sq M predicted among non-blacks MDRD vol rate/area (S/P/Bld)57 mL/min/{1.73_m2}Low [facility] HospitalComment on above:Result Comment: Chronic Kidney Disease stages by NKDFStage eGFR I >90 II 60-89 III 30-59 IV 15-29 V <15 or dialysisAGE(years) AVERAGE GFR 50-59 93 ml/min/1.73 square metersNote:This result is normalized to 1.73 square meter body surface area. Height and weight are not factored.Performed By: #### L400.0202, L400.0302, L400.2200, L400.2500, L400.5100, L404.6500 ####[facility] ([facility])[address] [place] [phone] Nivar, MDGlucose mass ucjv920 mg/hIJpmm88-401GhlrOhiohealth Riverside Methodist HospitalComment on above: Performed By: #### L400.0202, L400.0302, L400.2200, L400.2500, L400.5100, L404.6500 ####[facility] ([facility])[address], [place] [phone] Nivar, MDPotassium molar conc3.4 mmol/LLow3.6-5.0[facility] Methodist HospitalComment on above:Performed By: #### L400.0202, L400.0302, L400.2200, L400.2500, L400.5100, L404.6500 ####[facility] ([facility])[address] [phone] Nivar, MDSodium molar zpzh645 mmol/UDztjyn152-138ZmaiOhiohealth Riverside Methodist HospitalComment on above:Result Comment: Delta: 150 on 02/19/18-0414Performed By: #### L400.0202, L400.0302, L400.2200, L400.2500, L400.5100, L404.6500 ####[facility] ([facility])[address], [place] [phone] Nivar, MDUrea nitrogen mass conc48 mg/dL High7-20[facility] Methodist HospitalComment on above:Performed By: #### L400.0202, L400.0302, L400.2200, L400.2500, L400.5100, L404.6500 ####[facility] ([facility])[address] [place], [place] [phone] Nivar, MDBasic Metabolic,Non-Fastingon 44-65-0387Pgshr gap 3 molar conc11 mmol/LNormal 4-12[facility] HospitalComment on above:Performed By: #### L400.0202, L400.0302, L400.2200, L400.2500, L400.5100, L404.6500 ####[facility] ([facility])[address] [place], [place] [phone] Sandy, MDCalcium mass conc8.4 mg/dLLow8.8-10.5[facility] Methodist HospitalComment on above: Performed By: #### L400.0202, L400.0302, L400.2200, L400.2500, L400.5100, L404.6500 ####[facility] ([facility])[address] [place], [place] [phone] Sandy, MDChloride molar pfcd657 mmol/QFsli913-980ChtkOhiohealth Riverside Methodist HospitalComment on above:Performed By: #### L400.0202, L400.0302, L400.2200, L400.2500, L400.5100, L404.6500 ####[facility] ([facility])[address] [place], [place] [phone] Sandy, MDCO2 molar conc20 mmol/WLer74-76HafaOhiohealth Riverside Methodist HospitalComment on above:Performed By: #### L400.0202, L400.0302, L400.2200, L400.2500, L400.5100, L404.6500 ####[facility] ([facility])[address] [place] [phone] Sandy, MDCreatinine mass conc1.85 mg/dLHigh0.70-1.30[facility] HospitalComment on above:Performed By: #### L400.0202, L400.0302, L400.2200, L400.2500, L400.5100, L404.6500 ####[facility] ([facility])[address] [place], [place] [phone] Sandy, MDGFR/1.73 sq M predicted among non-blacks MDRD vol rate/area (S/P/Bld)46 mL/min/{1.73_m2}[facility]terson Medical CenterComment on above:Result Comment: Chronic Kidney [...] ([facility])[address] [place] [phone] Sandy MDGlucose mass conc89 mg/aWRowacg91-527BfynOhiohealth Riverside Methodist HospitalCommymichigan medical center on above:Result Comment: *This reference range applies to fasting specimens only.Performed By: #### L400.0202, L400.0302, L400.2200, L400.2500, L400.5100, L404.6500 ####[facility] ([facility])[address] [place], [place] [phone] Sandy, MDPotassium molar conc 4.1 mmol/LNormal3.6-5.0[facility] HospitalComment on above:Performed By: #### L400.0202, L400.0302, L400.2200, L400.2500, L400.5100, L404.6500 ####[facility] ([facility])[address] [place] [phone] Nivar, MDSodium molar fxmh082 mmol/KMxtg903-788HkmyOhiohealth Riverside Methodist HospitalComment on above:Result Comment: Delta: 145 on 02/18/18-0908Performed By: #### L400.0202, L400.0302, L400.2200, L400.2500, L400.5100, L404.6500 ####[facility] ([facility])[address] [place] [phone] Nivar, MDUrea nitrogen mass conc70 mg/dLHigh7-20[facility] HospitalComment on above: Performed By: #### L400.0202, L400.0302, L400.2200, L400.2500, L400.5100, L404.6500 ####[facility] ([facility])[address] [place] [phone] Nivar, MDCult,Bloodon 45-89-0414Qucz,BloodSpecimen Description .BLOOD Special Requests R FOREARM 6ML Culture NO GROWTH 6 DAYS Report Status FINAL 02/19/2018[facility] CenterComment on above:Performed By: #### ERTPF, CONNER, LIP, LIVP, TEGCR ####[facility] [address] [place], [place] 5722108 Cult,BloodSpecimen Description .BLOOD Special Requests RT HAND 1ML Culture NO GROWTH 6 DAYS Report Status FINAL 02/19/2018[facility] CenterComment on above:Performed By: #### ERTPF, CONNER, LIP, LIVP, TEGCR ####[facility] [address] [place] [address] xr CHEST PORTABLEon 86-67-3155EO CHEST PORTABLEPROCEDURE: XR CHEST PORTABLECLINICAL INFORMATION: picc [...] eted by:NADEGE Ellisigned by:Herminio Cardenas MD02/19/18Final resultNormal [facility] StationBasic Metabolic,Non-Fastingon 13-36-3600Hqecr gap 3 molar conc9 mmol/LNormal4-12[facility] HospitalComment on above: Performed By: #### L400.0202, L400.0302, L400.2200, L400.2500, L400.5100, L404.6500 ####[facility] ([facility])[address], [place] [phone] Sandy, MDCalcium mass conc8.3 mg/dLLow8.8-10.5[facility] HospitalComment on above:Performed By: #### L400.0202, L400.0302, L400.2200, L400.2500, L400.5100, L404.6500 ####[facility] ([facility])[address], [place] [phone] Sandy, MDChloride molar conc 113 mmol/DVzim894-718EnukOhiohealth Riverside Methodist HospitalComment on above:Performed By: #### L400.0202, L400.0302, L400.2200, L400.2500, L400.5100, L404.6500 ####[facility] ([facility])[address], [place] [phone] Sandy, MDCO2 molar conc23 mmol/QDyecty57-72StcyOhiohealth Riverside Methodist HospitalComment on above: Performed By: #### L400.0202, L400.0302, L400.2200, L400.2500, L400.5100, L404.6500 ####[facility] ([facility])[address] [place] [phone] Sandy, MDCreatinine mass conc1.90 mg/dLHigh0.70-1.30[facility] HospitalComment on above:Performed By: #### L400.0202, L400.0302, L400.2200, L400.2500, L400.5100, L404.6500 ####[facility] ([facility])[address] [place] [phone] Sandy, MDGFR/1.73 sq M predicted among non-blacks MDRD vol rate/area (S/P/Bld)45 mL/min/{1.73_m2}Low [facility] HospitalComment on above:Result Comment: Chronic Kidney [...] ([facility])[address] [place] [phone] Sandy, MDGlucose mass dssb727 mg/cIMakj85-349XnjhOhiohealth Riverside Methodist HospitalComment on above: Performed By: #### L400.0202, L400.0302, L400.2200, L400.2500, L400.5100, L404.6500 ####[facility] ([facility])[address] [place] [phone] Nivar, MDPotassium molar conc3.6 mmol/LNormal3.6-5.0[facility] HospitalComment on above:Performed By: #### L400.0202, L400.0302, L400.2200, L400.2500, L400.5100, L404.6500 ####[facility] ([facility])[address] [place], [place] [phone] Nivar, MDSodium molar ytse467 mmol/LInvalid Interpretation Ekto615-675GaclOhiohealth Riverside Methodist HospitalCommymichigan medical center on above:Result Comment: Delta: 139 on 02/17/18-0403Performed By: #### L400.0202, L400.0302, L400.2200, L400.2500, L400.5100, L404.6500 ####[facility] ([facility])[address] [place], [place] [phone] Nivar, MDUrea nitrogen mass conc80 mg/dLHigh7-20[facility] HospitalComment on above: Performed By: #### L400.0202, L400.0302, L400.2200, L400.2500, L400.5100, L404.6500 ####[facility] ([facility])[address] [place], [place] [phone] Nivar, MDHepatic Function Panel (Liver)on 02-18-2018 Albumin mass conc3.0 g/dLLow3.5-5.0[facility] HospitalComment on above: Performed By: #### L400.0202, L400.0302, L400.2200, L400.2500, L400.5100, L404.6500 ####[facility] ([facility])[address] [place], [place] [phone] Sandy, MDAlk Gnpd133 IU/ZHodh88-595UflsOhiohealth Riverside Methodist HospitalComment on above:Performed By: #### L400.0202, L400.0302, L400.2200, L400.2500, L400.5100, L404.6500 ####[facility] ([facility])[address], [place] [phone] Sandy, MDALT/SGPT52 IU/TNsaw05-91WewgOhiohealth Riverside Methodist HospitalComment on above:Performed By: #### L400.0202, L400.0302, L400.2200, L400.2500, L400.5100, L404.6500 ####[facility] ([facility])[address], [place] [phone] Sanyd, MDAST/SGOT39 IU/L Yvrdac24-94WgrhOhiohealth Riverside Methodist HospitalComment on above:Performed By: #### L400.0202, L400.0302, L400.2200, L400.2500, L400.5100, L404.6500 ####[facility] ([facility])[address], [place] [phone] Carrillo Delgadoi,Direct0.3 mg/dLHigh0.1-0.2LPaulding County HospitalComment on above: Performed By: #### L400.0202, L400.0302, L400.2200, L400.2500, L400.5100, L404.6500 ####[facility] ([facility])[address], [place] [phone] Sandy MDBili,Total0.3 mg/dLNormal0.2-1.0[facility] HospitalComment on above:Result Comment: Delta: 1.3 on 02/16/18-0409 Performed By: #### L400.0202, L400.0302, L400.2200, L400.2500, L400.5100, L404.6500 ####[facility] ([facility])[address], [place] [phone] Sandy, MDProtein mass conc7.9 g/dLNormal6.2-8.0[facility] HospitalComment on above:Performed By: #### L400.0202, L400.0302, L400.2200, L400.2500, L400.5100, L404.6500 ####[facility] ([facility])[address] [place], [place] [phone] Sandy, MDIonized Calciumon 49-58-6316Dzcmedz Calcium1.24 mmol/LNormal1.15-1.29[facility] Comment on above:Performed By: #### L400.0202, L400.0302, L400.2200, L400.2500, L400.5100, L404.6500 ####[facility] ([facility])[address] [place], [place] [phone] Sandy, MDMagnesiumon 43-70-4694Hpjcsqvap mass conc2.0 mg/dLNormal1.8-2.5[facility] HospitalComment on above:Performed By: #### L400.0202, L400.0302, L400.2200, L400.2500, L400.5100, L404.6500 ####[facility] ([facility])[address], [place] [phone] Sandy, MDPhosphoruson 57-45-2847Dnpruitvk mass conc2.9 mg/dLNormal2.4-4.7[facility] HospitalComment on above:Performed By: #### L400.0202, L400.0302, L400.2200, L400.2500, L400.5100, L404.6500 ####[facility] ([facility])[address], [place] [phone] Sandy, MDSputum culture/ smearon 97-68-1693CEM Coag RelTime (Bld)Gram stain result Moderate Segmented [...] S Ticarcillin/K Clavulanate >64 R Trimethoprim/Sulfamethoxazole <=2/38 SNAdventHealth OcalaComment on above:Performed By: #### L400.0202, L400.0302, L400.2200, L400.2500, L400.5100, L404.6500 ####[facility] ([facility])[address], [place] [phone] Sandy, MDBasic Metabolic,Non-Fastingon 90-26-5940Lkvf nitrogen mass womj101 mg/dLHigh7-20[facility] HospitalComment on above: Performed By: #### L400.0152, L400.2200, L400.5100 ####[facility] ([facility])[address], [place] [phone] Sandy, MDAnion gap 3 molar conc12 mmol/LNormal4-12[facility] HospitalComment on above: Performed By: #### L400.0152, L400.2200, L400.5100 ####[facility] ([facility])[address], [place] [phone] Sandy, MDCalcium mass conc7.9 mg/dLLow8.8-10.5[facility] HospitalComment on above: Performed By: #### L400.0152, L400.2200, L400.5100 ####[facility] ([facility])[address], [place] [phone] Sandy, MDChloride molar iebo022 mmol/JSmaxjf661-306AijfOhiohealth Riverside Methodist HospitalComment on above: Performed By: #### L400.0152, L400.2200, L400.5100 ####[facility] ([facility])[address], [place] [phone] Sandy, MDCO2 molar conc22 mmol/IHmggrb92-69VzwfOhiohealth Riverside Methodist HospitalComment on above:Performed By: #### L400.0152, L400.2200, L400.5100 ####[facility] ([facility])[address], [place] [phone] Sandy, MDCreatinine mass conc 2.19 mg/dLHigh0.70-1.30[facility] HospitalComment on above:Performed By: #### L400.0152, L400.2200, L400.5100 ####[facility] ([facility])[address], [place] [phone] Sandy, MDGFR/1.73 sq M predicted among non-blacks MDRD vol rate/area (S/P/Bld)38 mL/min/{1.73_m2}Low [facility] HospitalComment on above:Result Comment: Chronic Kidney Disease stages by NKDFStage eGFR I >90 II 60-89 III 30-59 IV 15-29 V <15 or dialysisAGE(years) AVERAGE GFR 50-59 93 ml/min/1.73 square metersNote:This result is normalized to 1.73 square meter body surface area. Height and weight are not factored.Performed By: #### L400.0152, L400.2200, L400.5100 ####[facility] ([facility])[address], [place] [phone] Sandy, MDGlucose mass lywa055 mg/wYDyww76-458MtbhOhiohealth Riverside Methodist HospitalComment on above:Performed By: #### L400.0152, L400.2200, L400.5100 ####[facility] ([facility])[address], [place] [phone] Sandy, MDPotassium molar conc3.2 mmol/LLow3.6-5.0[facility] HospitalComment on above:Performed By: #### L400.0152, L400.2200, L400.5100 ####[facility] ([facility])[address], [place] [phone] Sandy, MDSodium molar eefw727 mmol/TOozyys186-357JrdjOhiohealth Riverside Methodist HospitalComment on above:Performed By: #### L400.0152, L400.2200, L400.5100 ####[facility] ([facility])[address], [place] [phone] Sandy, MDCult,Bloodon 31-49-3421Qvyw,BloodSpecimen Description .BLOOD Special Requests LAC 0.02 ML Culture NO GROWTH 6 DAYS Report Status FINAL 02/17/2018NoThe MetroHealth SystemComment on above:Performed By: #### ERTPF, CONNER, LIP, LIVP, TEGCR ####[facility] [address] [place] [address] Cult,BloodSpecimen Description .BLOOD Special Requests RAC 0.01 ML Culture NO GROWTH 6 DAYS Report Status FINAL 02/17/2018[facility] CenterComment on above:Performed By: #### ERTPF, CONNER, LIP, LIVP, TEGCR ####[facility] [place] [address] MRSA screen, nasalon 97-34-1869NWBL screen, nasalNo growth of MRSA.[facility] SouthsideComment on above:Performed By: #### L400.0202, L400.0302, L400.2200, L400.2500, L400.5100, L404.6500 ####[facility] ([facility])[address], [place] [phone] Sandy, MDMagnesiumon 43-00-8882Iahcikfss mass conc2.1 mg/dLNormal1.8-2.5[facility] HospitalComment on above:Performed By: #### L400.0152, L400.2200, L400.5100 ####[facility] ([facility])[address], [place] [phone] Sandy, MDPhosphoruson 64-17-1463Xggxilktf mass conc3.6 mg/dLNormal2.4-4.7[facility] HospitalComment on above: Performed By: #### L400.0152, L400.2200, L400.5100 ####[facility] ([facility])[address], [place] [phone] Sandy, MDVRE screen, fecon 65-33-8544BBU screen, fecNo growth of Vancomycin Resistant Enterococcus (VRE).[facility] SouthsideComment on above:Performed By: #### L400.0202, L400.0302, L400.2200, L400.2500, L400.5100, L404.6500 ####[facility] ([facility])[address], [place] [phone] Sandy, MDBasic Metabolic Panel,Fastingon 70-53-3780Wwgg nitrogen mass uced444 mg/dLHigh7-20[facility] HospitalComment on above: Performed By: #### L400.0202, L400.0302, L400.2200, L400.2500, L400.5100, L404.6500 ####[facility] ([facility])[address], [place] [phone] Sandy, MDAnion gap 3 molar conc14 mmol/LHigh4-12[facility] HospitalComment on above:Performed By: #### L400.0202, L400.0302, L400.2200, L400.2500, L400.5100, L404.6500 ####[facility] ([facility])[address], [place] [phone] Sandy, MDCalcium mass conc8.7 mg/dLLow8.8-10.5[facility] HospitalComment on above:Performed By: #### L400.0202, L400.0302, L400.2200, L400.2500, L400.5100, L404.6500 ####[facility] ([facility])[address], [place] [phone] Sandy, MDChloride molar oklr405 mmol/KInmtnc889-405YvbgOhiohealth Riverside Methodist HospitalComment on above:Performed By: #### L400.0202, L400.0302, L400.2200, L400.2500, L400.5100, L404.6500 ####[facility] ([facility])[address], [place] [phone] Sandy, MDCO2 molar conc26 mmol/UXwhuge64-87LmkuOhiohealth Riverside Methodist HospitalComment on above:Performed By: #### L400.0202, L400.0302, L400.2200, L400.2500, L400.5100, L404.6500 ####[facility] ([facility])[address], [place] [phone] Sandy, MDCreatinine mass conc 2.40 mg/dLHigh0.70-1.30[facility] HospitalComment on above:Performed By: #### L400.0202, L400.0302, L400.2200, L400.2500, L400.5100, L404.6500 ####[facility] ([facility])[address] [place] [phone] Nivar, MDGFR/1.73 sq M predicted among non-blacks MDRD vol rate/area (S/P/Bld)28 mL/min/{1.73_m2}LowOhiohealth Riverside Methodist HospitalComment on above:Result Comment: Chronic Kidney [...] ([facility])[address] [place] [phone] Nivar, MDGlucose mass yagy055 mg/qYHtdh95-448WvtbOhiohealth Riverside Methodist HospitalComment on above:Performed By: #### L400.0202, L400.0302, L400.2200, L400.2500, L400.5100, L404.6500 ####Main Laboratory ([facility])[address] [place], [place] [phone] Nivar, MDPotassium molar conc3.4 mmol/LLow3.6-5.0[facility] HospitalComment on above:Performed By: #### L400.0202, L400.0302, L400.2200, L400.2500, L400.5100, L404.6500 ####Main Laboratory ([facility])[address], [place] [phone] Sandy, MDSodium molar zktn361 mmol/JZqghsv777-091KlhdCommunity Hospital Of Bremen SystemComment on above:Performed By: #### L400.0202, L400.0302, L400.2200, L400.2500, L400.5100, L404.6500 ####Main Laboratory ([facility])[address], [place] [phone] Sandy, MDCBC with Differentialon [id number] Baso Ujsnf422 /cmmNormal0-200Ohio[facility] Methodist HospitalComment on above:Performed By: #### L100.0000 ####Main Laboratory ([facility])[address], [place] [phone] Sandy, MDAbs Eos Ljcxi775 /cmmNormal0-500Ohio[facility] Methodist HospitalComment on above: Performed By: #### L100.0000 ####Main Laboratory ([facility])[address], [place] [phone] Sandy, MDAbs [place] Nqtpq2300 /cmmHigh0-800 [facility] Methodist HospitalComment on above:Performed By: #### L100.0000 ####Main Laboratory ([facility])[address], [place] [phone] Sandy, MDAbs Neut Auvqh96044 /mltRccv6812-5100TenaOhiohealth Riverside Methodist HospitalComment on above:Performed By: #### L100.0000 ####Main Laboratory ([facility])[address], [place] [phone] Sandy, MDBasophils Auto #/vol (Bld)0.4 %Normal0-2LPaulding County HospitalComment on above: Performed By: #### L100.0000 ####Main Laboratory ([facility])[address], [place] [phone] Nivar, MDEOS-Auto Diff0.6 %Normal0-6[facility] HospitalComment on above:Performed By: #### L100.0000 ####Main Laboratory ([facility])[address], [place] [phone] Nivar, MDErythrocyte distribution width Auto Ratio (RBC)16.9 %High12.0-16.0[facility] HospitalComment on above:Performed By: #### L100.0000 ####Main Laboratory ([facility])[address], [place] [phone] Nivar, MDHematocrit Auto Volume Fraction (Bld)26.1 %Low40.0-49.0[facility] HospitalComment on above:Performed By: #### L100.0000 ####Main Laboratory ([facility])[address] [place], [place] [phone] Nivar, MD Hemoglobin mass conc (Bld)8.3 g/dLLow13.5-16.5[facility] HospitalComment on above:Performed By: #### L100.0000 ####Main Laboratory ([facility])[address], [place] [phone] Nivar, MDLymphocytes Auto #/vol (Bld)2000 /ksmVqocbz7596-4236JbfpOhiohealth Riverside Methodist HospitalComment on above: Performed By: #### L100.0000 ####Main Laboratory ([facility])[address], [place] [phone] Nivar, MDLymphocytes/100 WBC Auto (Bld)7.0 %Qzz82-63YxzgOhiohealth Riverside Methodist HospitalComment on above:Performed By: #### L100.0000 ####Main Laboratory ([facility])[address], [place] [phone] Nivar, MDMCH Auto Entitic mass (RBC)29.1 pgNormal 27.5-33.0[facility] HospitalComment on above:Performed By: #### L100.0000 ####Main Laboratory ([facility])[address], [place] [phone] Sandy, MDMCHC Auto mass conc (RBC)31.8 g/dLLow33.0-36.0 [facility] HospitalComment on above:Performed By: #### L100.0000 ####Main Laboratory ([facility])[address], [place] [phone] Sandy, MDMCV Auto Entitic volume (RBC)91.5 CU SFHYdqmuc74-31NpvcOhiohealth Riverside Methodist HospitalComment on above:Performed By: #### L100.0000 ####Main Laboratory ([facility])[address], [place] [phone] Sandy, MDMono- Auto Diff5.7 %Normal2-10[facility] HospitalComment on above: Performed By: #### L100.0000 ####Main Laboratory ([facility])[address], [place] [phone] Sandy, MDNeut-Auto Diff86.3 %Hdbx55-81DckqOhiohealth Riverside Methodist HospitalComment on above:Performed By: #### L100.0000 ####Main Laboratory ([facility])[address], [place] [phone] Sandy, MDNRBC-Auto0.1 /100 WBCNormal<1LPaulding County HospitalComment on above: Performed By: #### L100.0000 ####Main Laboratory ([facility])[address], [place] [phone] Sandy, MDPlatelets Auto #/vol (Bld)516 th/dzoCdio062-153BagyOhiohealth Riverside Methodist HospitalComment on above:Performed By: #### L100.0000 ####Main Laboratory ([facility])[address], [place] [phone] Sandy, MDRBC Auto #/vol (Bld)2.85 mil/cmmLow4.50-6.00 [facility] HospitalComment on above:Performed By: #### L100.0000 ####Main Laboratory ([facility])[address], [place] [phone] Delgado, MDWBC Auto #/vol (Bld)29.1 th/cmmHigh4.4-10.5[facility] HospitalComment on above:Performed By: #### L100.0000 ####Main Laboratory ([facility])[address], [place] [phone] Nivar, MDHepatic Function Panel (Liver)on 01-74-1435Rmoueyf mass conc3.1 g/dLLow3.5-5.0[facility] HospitalComment on above:Performed By: #### L400.0202, L400.0302, L400.2200, L400.2500, L400.5100, L404.6500 ####Main Laboratory ([facility])[address], [place] [phone] Sandy, MDAlk Pskn821 IU/LHigh 41-137[facility] HospitalComment on above:Performed By: #### L400.0202, L400.0302, L400.2200, L400.2500, L400.5100, L404.6500 ####Main Laboratory ([facility])[address], [place] [phone] Sandy, MDALT/SGPT 80 IU/LJydl99-36MjigOhiohealth Riverside Methodist HospitalComment on above:Performed By: #### L400.0202, L400.0302, L400.2200, L400.2500, L400.5100, L404.6500 ####Main Laboratory ([facility])[address], [place] [phone] Sadny, MDAST/SGOT43 IU/WPzyq37-30XpwnOhiohealth Riverside Methodist HospitalComment on above:Performed By: #### L400.0202, L400.0302, L400.2200, L400.2500, L400.5100, L404.6500 ####Main Laboratory ([facility])[address], [place] [phone] Sandy, MDBili,Direct0.6 mg/dLHigh0.1-0.2LPaulding County HospitalComment on above:Performed By: #### L400.0202, L400.0302, L400.2200, L400.2500, L400.5100, L404.6500 ####Main Laboratory ([facility])[address], [place] [phone] Sandy, MDBili,Total1.3 mg/dL High0.2-1.0[facility] HospitalComment on above:Performed By: #### L400.0202, L400.0302, L400.2200, L400.2500, L400.5100, L404.6500 ####Main Laboratory ([facility])[address], [place] [phone] Sandy, MDProtein mass conc8.2 g/dLHigh6.2-8.0[facility] HospitalComment on above:Performed By: #### L400.0202, L400.0302, L400.2200, L400.2500, L400.5100, L404.6500 ####Main Laboratory ([facility])[address], [place] [phone] Sandy, MDMagnesiumon 84-90-4914Xutacejvv mass conc2.3 mg/dLNormal1.8-2.5[facility] HospitalComment on above:Performed By: #### L400.0202, L400.0302, L400.2200, L400.2500, L400.5100, L404.6500 ####Main Laboratory ([facility])[address] [place] [phone] Sandy, MDPhosphoruson 65-27-2264Hnxllmygj mass conc3.8 mg/dLNormal2.4-4.7[facility] HospitalComment on above:Performed By: #### L400.0202, L400.0302, L400.2200, L400.2500, L400.5100, L404.6500 ####Main Laboratory ([facility])[address] [place], [place] [phone] Sandy, MDPrealbuminon 03-46-2000Ynsxubxqfe mass conc11.4 mg/dLLow16.0-38.0[facility] Comment on above:Performed By: #### L400.0202, L400.0302, L400.2200, L400.2500, L400.5100, L404.6500 ####Main Laboratory ([facility])[address] [place] [phone] Sandy MDTriglycerideson 48-76-8304Llvpjonwmwgj mass flbl608 mg/dLNormal<150[facility] HospitalComment on above:Performed By: #### L400.0202, L400.0302, L400.2200, L400.2500, L400.5100, L404.6500 ####Main Laboratory ([facility])[address] [place], [place] [phone] Sandy, MDXR ABDOMEN G TUBE PLACEMENTon 26-87-6358XH ABDOMEN G TUBE PLACEMENTPROCEDURE: XR ABDOMEN G [...] 3:03 PMInterpreted by:NADEGE Groveigned by:Elizabeth Barone MD02/16/18Final resultNormalSHCA Houston Healthcare PearlandBaal[facility] Metabolic Profon 12-88-7393Hkom nitrogen mass dxcz750 mg/dLCritically high6-20[facility] Comment on above:Result Comment: Previous Alert Value ReportedPerformed By: #### ERTPF, CONNER, LIP, LIVP, TEGCR ####[address]ercAbcelluteDdxpsniojfab[address] [place] [address] (cont.)NormalUniversity Hospitals Tripoint Medical CenterComment on above: Result Comment: Average GFR for 50-59 years old: 93 mL/min/1.73sq mChronic Kidney Disease: <60 mL/min/1.73sq mKidney failure: <15 mL/min/1.73sq meGFR calculated using average adult body mass. Additional eGFR calculator available at:http://www.NetShoes.StylePuzzle/multiple_crcl_2012.htmPerformed By: #### ERTPF, CONNER, LIP, LIVP, TEGCR ####[facility] [address] [place], [place] [address] Anion gap 3 molar conc19 mmol/LHigh9-17[facility] CenterComment on above:Performed By: #### ERTPF, CONNER, LIP, LIVP, TEGCR ####[facility] [address]cwoohdzeu[address] [place] [address] Calcium mass conc8.9 mg/dLNormal8.6-10.4[facility] CenterComment on above:Performed By: #### ERTPF, CONNER, LIP, LIVP, TEGCR ####[facility] Rpb[address]cnjvequ5720 [place] [address] Chloride molar conc98 mmol/XGycinu48-693HmtasScripps Mercy HospitalComment on above:Performed By: #### ERTPF, CONNER, LIP, LIVP, TEGCR ####[facility] Oy[address]cmasqrvr[address] [place] [address] CO2 molar conc24 mmol/PPagmew67-04DtxqrScripps Mercy HospitalComment on above:Performed By: #### ERTPF, CONNER, LIP, LIVP, TEGCR ####[facility] Vg[address]eqqmvref2813 [place] [address] Creatinine mass conc2.51 mg/dLHigh 0.70-1.20MerScripps Mercy HospitalComment on above:Performed By: #### ERTPF, CONNER, LIP, LIVP, TEGCR ####[facility] [address] [place] [address] GFR, Amer32 mL/minLow>60MerScripps Mercy HospitalComment on above:Performed By: #### ERTPF, CONNER, LIP, LIVP, TEGCR ####[facility] Fvifrmonpvpk[address]389 [place] [address] GFR,non Amer27 mL/minLow>60MerScripps Mercy HospitalComment on above:Performed By: #### ERTPF, CONNER, LIP, LIVP, TEGCR ####[facility] Wzkckerltcru[address]56 [place] [address] Glucose mass tldt631 mg/hPLibm83-95Gpzaf [facility] CenterComment on above:Performed By: #### ERTPF, CONNER, LIP, LIVP, TEGCR ####[facility] Ym[address]zzrvqktr[address] [place] [address] Potassium molar conc3.3 mmol/LLow3.7-5.3[facility] Medical CenterComment on above:Performed By: #### ERTPF, CONNER, LIP, LIVP, TEGCR ####[address] [phone] molar nquf528 mmol/ISlfejr014-368WoscaUniversity Hospitals Tripoint Medical CenterComment on above:Performed By: #### ERTPF, CONNER, LIP, LIVP, TEGCR ####[address] [phone]/CRE Ratio NOT REPORTEDNormal9-20[facility] CenterComment on above:Performed By: #### ERTPF, CONNER, LIP, LIVP, TEGCR ####[address] [phone]:NOT REPORTEDNormalUniversity Hospitals Tripoint Medical CenterComment on above:Performed By: #### ERTPF, CONNER, LIP, LIVP, TEGCR ####[place], [place] [phone] 09-32-2363Kifecspwior distribution width Auto Ratio (RBC)16.5 %High11.8-14.4 [facility] CenterComment on above:Performed By: #### ERTPF, CONNER, LIP, LIVP, TEGCR ####[address] [address] Hematocrit Auto Volume Fraction (Bld)27.4 %Low40.7-50.3MLos Alamitos Medical CenterComment on above:Performed By: #### ERTPF, CONNER, LIP, LIVP, TEGCR ####[address] [address] Hemoglobin mass conc (Bld)8.6 g/dLLow13.0-17.0[facility] Comment on above:Performed By: #### ERTPF, CONNER, LIP, LIVP, TEGCR ####[address] [address] MCH Auto Entitic mass (RBC)29.1 zwIhrsgq52.2-33.5[facility] CenterComment on above: Performed By: #### ERTPF, CONNER, LIP, LIVP, TEGCR ####Sarith[address] [place] [address] MCHC Auto mass conc (RBC)31.4 g/dLNormal 28.4-34.8[facility] CenterComment on above:Performed By: #### ERTPF, CONNER, LIP, LIVP, TEGCR ####[facility] [address] [place] [address] MCV Auto Entitic volume (RBC)92.6 aNPosrqu23.6-102.9[facility] CenterComment on above:Performed By: #### ERTPF, CONNER, LIP, LIVP, TEGCR ####[facility] [address] [place] [address] NRBC Automated0.1 per 100 WBCHigh0.0[facility] CenterComment on above: Performed By: #### ERTPF, CONNER, LIP, LIVP, TEGCR ####[facility] [address] [place] [address] Platelet mean volume Auto Entitic volume (Bld)12.4 fLNormal8.1-13.5[facility] CenterComment on above: Performed By: #### ERTPF, CONNER, LIP, LIVP, TEGCR ####[place] [address] Platelets Auto #/vol (Bld)533 10*3/uLHigh 138-453[facility] CenterComment on above:Performed By: #### ERTPF, CONNER, LIP, LIVP, TEGCR ####[facility] [address] [place] [address] RBC Auto #/vol (Bld)2.96 10*6/uLLow4.21-5.77[facility] CenterComment on above:Performed By: #### ERTPF, CONNER, LIP, LIVP, TEGCR ####Filomen[address] [place] [address] WBC Auto #/vol (Bld)28.7 10*3/uLHigh3.5-11.3[facility] hospitaly [facility] CenterComment on above: Performed By: #### ERTPF, CONNER, LIP, LIVP, TEGCR ####[facility] [address] [place] [address] Magnesiumon 55-88-2961Goznsapoq mass conc 2.4 mg/dLNormal1.6-2.6MLos Alamitos Medical CenterComment on above:Performed By: #### ERTPF, CONNER, LIP, LIVP, TEGCR ####[facility] [address] [place] [address] Phosphorus, Inorg.on 36-49-5683Nxsvguvxub, Inorg.4.3 mg/dLNormal2.5-4.5[facility] CenterComment on above: Performed By: #### ERTPF, CONNER, LIP, LIVP, TEGCR ####[facility] [address] [place] [address] Basic Metabolic Profon 10-21-0701Qyfd nitrogen mass zkqd080 mg/dLCritically high6-20[facility] Comment on above:Performed By: #### ERTPF, CONNER, LIP, LIVP, TEGCR ####Sarith[address]sl9[address] [place] [address] (cont.)NormalUniversity Hospitals Tripoint Medical CenterComment on above:Result Comment: Average GFR for 50-59 years old: 93 mL/min/1.73sq mChronic Kidney Disease: <60 mL/min/1.73sq mKidney failure: <15 mL/min/1.73sq meGFR calculated using average adult body mass. Ad ditional eGFR calculator available at:http://www.raksul/multiple_crcl_2012.htmPerformed By: #### ERTPF, CONNER, LIP, LIVP, TEGCR ####[facility] [address]ziks[address] [place] 43[address] Anion gap 3 molar conc20 mmol/LHigh9-17[facility] CenterComment on above:Performed By: #### ERTPF, CONNER, LIP, LIVP, TEGCR ####[facility] [address]ifxkjh[address]34 [place] [address] Calcium mass conc9.0 mg/dLNormal8.6-10.4[facility] CenterComment on above:Performed By: #### ERTPF, CONNER, LIP, LIVP, TEGCR ####[facility] F[address]numfjyuef[address] [place] [address] Chloride molar conc93 mmol/OLar04-633GsalgUniversity Hospitals Tripoint Medical CenterComment on above:Performed By: #### ERTPF, CONNER, LIP, LIVP, TEGCR ####[facility] Kcpwestgsink6534 [place] [address] EC5 molar conc24 mmol/DWaiynx42-29CdvaaUniversity Hospitals Tripoint Medical CenterComment on above: Performed By: #### ERTPF, CONNER, LIP, LIVP, TEGCR ####[facility] Wgbtmfxaszue0091 [place] [address] Creatinine mass conc2.97 mg/dLHigh 0.70-1.20[facility] CenterComment on above:Performed By: #### ERTPF, CONNER, LIP, LIVP, TEGCR ####[facility] [address]rw[address] [place] [address] GFR, Amer27 mL/minLow>60MerScripps Mercy HospitalComment on above:Performed By: #### ERTPF, CONNER, LIP, LIVP, TEGCR ####[facility] Agpwcnncgfgo3676 [place] [address] GFR,non Amer22 mL/minLow>60[facility] CenterComment on above:Performed By: #### ERTPF, CONNER, LIP, LIVP, TEGCR ####[facility] [address] [place] [address] Glucose mass whac122 mg/pSCoco54-84Hrpqh [facility] CenterComment on above:Performed By: #### ERTPF, CONNER, LIP, LIVP, TEGCR ####[address] [address] Potassium molar conc3.7 mmol/LNormal3.7-5.3[facility] Medical CenterComment on above:Performed By: #### ERTPF, CONNER, LIP, LIVP, TEGCR ####[facility] [address] [place] [address] Sodium molar wxnd991 mmol/RAilbxs620-920UqrcxUniversity Hospitals Tripoint Medical CenterComment on above:Performed By: #### ERTPF, CONNER, LIP, LIVP, TEGCR ####[address] [address] BUN/CRE RatioNOT REPORTEDNormal9-20[facility] CenterComment on above:Performed By: #### ERTPF, CONNER, LIP, LIVP, TEGCR ####[address] [address] Staging:NOT REPORTEDNormalMerScripps Mercy HospitalComment on above:Performed By: #### ERTPF, CONNER, LIP, LIVP, TEGCR ####[address] [address] CBCon 17-36-4255Pcplctfufbs distribution width Auto Ratio (RBC)16.2 %High11.8-14.4 [facility] CenterComment on above:Performed By: #### ERTPF, CONNER, LIP, LIVP, TEGCR ####[address] [place] 43[address] [phone] Auto Volume Fraction (Bld)34.2 %Low40.7-50.3MLos Alamitos Medical CenterComment on above:Performed By: #### ERTPF, CONNER, LIP, LIVP, TEGCR ####[address] [address] Hemoglobin mass conc (Bld)11.2 g/dLLow13.0-17.0[facility] Comment on above:Performed By: #### ERTPF, CONNER, LIP, LIVP, TEGCR ####[address] [address] MCH Auto Entitic mass (RBC)29.2 auCihwhm95.2-33.5[facility] CenterComment on above: Performed By: #### ERTPF, CONNER, LIP, LIVP, TEGCR ####[address] [address] MCHC Auto mass conc (RBC)32.7 g/dLNormal 28.4-34.8[facility] CenterComment on above:Performed By: #### ERTPF, CONNER, LIP, LIVP, TEGCR ####[address] [address] MCV Auto Entitic volume (RBC)89.3 wWSrjyun93.6-102.9[facility] CenterComment on above:Performed By: #### ERTPF, CONNER, LIP, LIVP, TEGCR ####[address] [address] NRBC Automated0.3 per 100 WBCHigh0.0[facility] CenterComment on above: Performed By: #### ERTPF, CONNER, LIP, LIVP, TEGCR ####[facility] Qovynmbvzqkh[address] [place] [address] Platelet mean volume Auto Entitic volume (Bld)11.4 fLNormal8.1-13.5[facility] CenterComment on above: Performed By: #### ERTPF, CONNER, LIP, LIVP, TEGCR ####[facility] Emazmixqkjpm[address] [place] [address] Platelets Auto #/vol (Bld)145 10*3/uL Ifgxhi891-243OdzmgUniversity Hospitals Tripoint Medical CenterComment on above:Performed By: #### ERTPF, CONNER, LIP, LIVP, TEGCR ####[address] [address] RBC Auto #/vol (Bld)3.83 10*6/uLLow4.21-5.77[facility] CenterComment on above:Performed By: #### ERTPF, CONNER, LIP, LIVP, TEGCR ####[facility] [address] [place] [address] WBC Auto #/vol (Bld)19.5 10*3/uLHigh3.5-11.3MLos Alamitos Medical CenterComment on above: Performed By: #### ERTPF, CONNER, LIP, LIVP, TEGCR ####[facility] [address] [place], [place] [phone] RETROPERITONEAL LIMITEDon 08-58-2739SI RETROPERITONEAL LIMITEDEXAMINATION:RETROPERITONEAL ULTRASOUND OF THE KIDNEYS AND URINARY PQIDCHF1802/14/2018COMPARISON:02/13/2018 CTHISTORY:ORDERING SYSTEM PROVIDED HISTORY: RENAL FAILURE, ACUTE (KIDNEY INJURY)FINDINGS:Kidneys:The right kidney measures 11.3 cm in length and the left kidney measures 12.2cm in length.Mild right renal pelviectasis, better seen on recent CT. No perinephriccollection bilaterally.Bladder:Not imagedIMPRESSION: Mild right renal pelviectasis. Please refer to CT performed 1 day prior.Interpretedby:NADEGE Hoodigned by:Jonathan Jones MD02/14/18Final resultNoThe MetroHealth SystemXR CHEST PORTABLEon 20-79-6674BJ CHEST PORTABLEEXAMINATION:SINGLE XRAY VIEW OF THE CHEST02/14/2018 [...] pleural effusion.Interpreted by:NADEGE Wrightigned by:Vanna Guzmán MD02/14/18Final resultNoThe MetroHealth SystemBasic Metabolic Profon 02-71-4418Bybq nitrogen mass bjhx435 mg/dL Critically high6-20[facility] CenterComment on above:Performed By: #### ERTPF, CONNER, LIP, LIVP, TEGCR ####[facility] [address]jtef[address] [place] [address] (cont.)NormalUniversity Hospitals Tri[facility] Comment on above:Result Comment: Average GFR for 50-59 years old: 93 mL/min/1.73sq mChronic Kidney Disease: <60 mL/min/1.73sq mKidney failure: <15 mL/min/1.73sq meGFR calculated using average adult body mass. Additional eGFR calculator available at:http://www.NetShoes.com/multiple_crcl_2012.htmPerformed By: #### ERTPF, CONNER, LIP, LIVP, TEGCR ####Sarith[address]ks[address]wnf[address] [place] [address] Anion gap 3 molar conc16 mmol/LNormal9-17[facility] CenterComment on above:Performed By: #### ERTPF, CONNER, LIP, LIVP, TEGCR ####[facility] [address]gjes[address] [place] [address] Calcium mass conc8.7 mg/dLNormal8.6-10.4[facility] CenterComment on above:Performed By: #### ERTPF, CONNER, LIP, LIVP, TEGCR ####[facility] [address]spjsfrmjyi[address] [place] [address] Chloride molar conc98 mmol/MTeyljj44-217XjcddUniversity Hospitals Tripoint Medical CenterComment on above:Performed By: #### ERTPF, CONNER, LIP, LIVP, TEGCR ####[facility] [address]gb[address] [place] [address] HX1 molar conc20 mmol/ORmrswq62-89SsleeUniversity Hospitals Tripoint Medical CenterComment on above:Performed By: #### ERTPF, CONNER, LIP, LIVP, TEGCR ####[facility] [address]cxccibcy[address] [place] [address] Creatinine mass conc3.44 mg/dLHigh0.70-1.20[facility] CenterComment on above:Performed By: #### ERTPF, CONNER, LIP, LIVP, TEGCR ####[facility] [address] [place] [id number] GFR, Amer22 mL/minLow>60MerScripps Mercy HospitalComment on above:Performed By: #### ERTPF, CONNER, LIP, LIVP, TEGCR ####[facility] Xsxiynzwitut2420 [place] [address] GFR,non Amer19 mL/minLow>60MerScripps Mercy HospitalComment on above:Performed By: #### ERTPF, CONNER, LIP, LIVP, TEGCR ####[facility] [address] [place] [address] Glucose mass arba562 mg/kPOnnc47-66Xblno [facility] CenterComment on above:Performed By: #### ERTPF, CONNER, LIP, LIVP, TEGCR ####[address] [address] Potassium molar conc4.5 mmol/LNormal3.7-5.3[facility] Comment on above:Performed By: #### ERTPF, CONNER, LIP, LIVP, TEGCR ####[facility] [address] [place] [address] Sodium molar qhce193 mmol/QDeu804-861JwhfzScripps Mercy HospitalComment on above:Performed By: #### ERTPF, CONNER, LIP, LIVP, TEGCR ####[address] [address] BUN/CRE RatioNOT REPORTEDNormal9-20[facility] CenterComment on above:Performed By: #### ERTPF, CONNER, LIP, LIVP, TEGCR ####[facility] [address] [place] [id number] Staging:NOT REPORTEDNormalUniversity Hospitals Tripoint Medical CenterComment on above:Performed By: #### ERTPF, CONNER, LIP, LIVP, TEGCR ####[address] [address] Brain Natri. Peptideon [id number] peptide B mass conc (Bld)769 pg/mLHigh<300MerScripps Mercy HospitalComment on above: Result Comment: Pro-BNP results cannot be compared to BNP results.Performed By: #### ERTPF, CONNER, LIP, LIVP, TEGCR ####[facility] [address] [place] [address] [phone] peptide B mass conc (Bld)NormalMerScripps Mercy HospitalComment on above:Result Comment: Pro-BNP Reference Range:Rule Out: <300Grey Zone: Age <50 300-450 Age 50-75 300-900 Age >75 300- 1800Usually represents mild to moderate HF but other cardiopulmonary causes evelyne ot be ruled out.Rule In: Age <50 >450 Age 50-75 >900 Age >75 >1800Performed By: #### ERTPF, CONNER, LIP, LIVP, TEGCR ####[place], [place] [phone] 24-30-1923Pdkqrggymqa distribution width Auto Ratio (RBC)16.5 %High11.8-14.4[facility] Medical CenterComment on above: Performed By: #### ERTPF, CONNER, LIP, LIVP, TEGCR ####[facility] [address] [place] [address] Hematocrit Auto Volume Fraction (Bld)24.7 %Low40.7-50.3[facility] Medical CenterComment on above:Performed By: #### ERTPF, CONNER, LIP, LIVP, TEGCR ####[facility] [address] [place] [address] Hemoglobin mass conc (Bld)8.1 g/dLLow13.0-17.0[facility] CenterComment on above:Performed By: #### ERTPF, CONNER, LIP, LIVP, TEGCR ####[facility] [address] [place] [address] 21252 MCH Auto Entitic mass (RBC)29.7 wdKfeaah70.2-33.5[facility] Comment on above:Performed By: #### ERTPF, CONNER, LIP, LIVP, TEGCR ####[facility] [address] [place] [address] MCHC Auto mass conc (RBC)32.8 g/fKBedlvl53.4-34.8[facility] CenterComment on above: Performed By: #### ERTPF, CONNER, LIP, LIVP, TEGCR ####[place] [address] MCV Auto Entitic volume (RBC)90.5 fL Xazxyi52.6-102.9[facility] CenterComment on above:Performed By: #### ERTPF, CONNER, LIP, LIVP, TEGCR ####[place] [address] NRBC Automated0.3 per 100 WBCHigh0.0[facility] CenterComment on above:Performed By: #### ERTPF, CONNER, LIP, LIVP, TEGCR ####[place] [address] Platelet mean volume Auto Entitic volume (Bld)11.9 fLNormal8.1-13.5[facility] CenterComment on above:Performed By: #### ERTPF, CONNER, LIP, LIVP, TEGCR ####[place] [address] Platelets Auto #/vol (Bld)490 10*3/uUXumn833-089CspdzUniversity Hospitals Tripoint Medical CenterComment on above: Performed By: #### ERTPF, CONNER, LIP, LIVP, TEGCR ####[place] [address] RBC Auto #/vol (Bld)2.73 10*6/uLLow 4.21-5.77[facility] CenterComment on above:Performed By: #### ERTPF, CONNER, LIP, LIVP, TEGCR ####Ens[address] [place] [address] WBC Auto #/vol (Bld)25.7 10*3/uLHigh3.5-11.3[facility] Medical CenterComment on above:Performed By: #### ERTPF, CONNER, LIP, LIVP, TEGCR ####[facility] [place] [address] CT ABDOMEN PELVIS WO CONTRASTon [id number] ABDOMEN PELVIS WO CONTRASTEXAMINATION:CT OF THE ABDOMEN [...] gas collections. There is compression deformity at geuB4rtoplkdjt body.IMPRESSION: 1. Fluid-filled dilated small bowel loops [...] at least 01/19/2018Interpreted by:NADEGE Vidaligned by:MD Allie02/13/18Final resultNormalUniversity Hospitals Tripoint Medical CenterXR ABDOMEN (KUB) (SINGLE AP VIEW)on 67-32-7199PW ABDOMEN (KUB) (SINGLE AP VIEW)EXAMINATION:SINGLE SUPINE XRAY VIEW(S) OF THE QIFYZUI4502/13/2018 7:15 amHISTORY:ORDERING SYSTEM PROVIDED HISTORY: abd painTECHNOLOGIST PROVIDED HISTORY:abd painFINDINGS:Air-filled, mildly dilated loops of small and large bowel are identified.Catheter projects over the right lower hemiabdomen. Peg tube in place.Osseous structures grossly intact.IMPRESSION: The appearance of ileus in the gastrointestinal tract has not significantlychanged compared to 02/10/2018Interpreted by:NADEGE Vidaligned by:Anjel Hernandez MD02/13/18Final resultNormalUniversity Hospitals Tripoint Medical Center Basic Metabolic Profon 02-12-2018(cont.)NormalUniversity Hospitals [facility] Center Comment on above:Result Comment: Average GFR for 50-59 years old: 93 mL/min/1.73sq mChronic Kidney Disease: <60 mL/min/1.73sq mKidney failure: <15 mL/min/1.73sq meGFR calculated using average adult body mass. Additional eGFR calculator available at:http://www.NetShoes.StylePuzzle/multiple_crcl_2012.htmPerformed By: #### ERTPF, CONNER, LIP, LIVP, TEGCR ####[facility] [place], [place] [address] Anion gap 3 molar conc16 mmol/LNormal9-17[facility] CenterComment on above:Performed By: #### ERTPF, CONNER, LIP, LIVP, TEGCR ####[facility] [place], [place] 7408[address] Calcium mass conc8.9 mg/dLNormal8.6-10.4[facility] CenterComment on above:Performed By: #### ERTPF, CONNER, LIP, LIVP, TEGCR ####[facility] [address] [place] [address] Chloride molar conc96 mmol/XAnd28-414ZrxhyScripps Mercy HospitalComment on above:Performed By: #### ERTPF, CONNER, LIP, LIVP, TEGCR ####[facility] [address]zlzmuclmk[address] [place] [address] LY5 molar conc19 mmol/CRfd49-80Amngl [facility] Medical CenterComment on above:Performed By: #### ERTPF, CONNER, LIP, LIVP, TEGCR ####[facility] [address] [place] [address] Creatinine mass conc 3.22 mg/dLHigh0.70-1.20[facility] CenterComment on above: Performed By: #### ERTPF, CONNER, LIP, LIVP, TEGCR ####[facility] [address] [place] [address] GFR, Amer24 mL/minLow>60[facility] CenterComment on above:Performed By: #### ERTPF, CONNER, LIP, LIVP, TEGCR ####[facility] [address] [place] [address] GFR,non Amer20 mL/minLow>60[facility] CenterComment on above: Performed By: #### ERTPF, CONNER, LIP, LIVP, TEGCR ####[facility] [address]wpyf[address] [place] [address] Glucose mass ijiq847 mg/oNDexn40-18Sygeu [facility] Medical CenterComment on above:Performed By: #### ERTPF, CONNER, LIP, LIVP, TEGCR ####[facility] [address] [place] [address] Potassium molar conc4.1 mmol/LNormal3.7-5.3[facility] Comment on above:Performed By: #### ERTPF, CONNER, LIP, LIVP, TEGCR ####Sarithay [address] [place] [address] Sodium molar gxgc001 mmol/MAyu520-408AwtbwUniversity Hospitals Tripoint Medical CenterComment on above:Performed By: #### ERTPF, CONNER, LIP, LIVP, TEGCR ####[facility] [address] [place] [address] Urea nitrogen mass conc89 mg/dLHigh6-20[facility] CenterComment on above:Performed By: #### ERTPF, CONNER, LIP, LIVP, TEGCR ####Sarithay [address] [place] [address] BUN/CRE Ratio NOT REPORTEDNormal9-20[facility] CenterComment on above:Performed By: #### ERTPF, CONNER, LIP, LIVP, TEGCR ####[facility] [address]minzh[address] [place] [address] Staging:NOT REPORTEDNormalUniversity Hospitals Tripoint Medical CenterComment on above:Performed By: #### ERTPF, CONNER, LIP, LIVP, TEGCR ####[facility] [address] [place] [address] Brain Natri. Peptideon 93-39-1817Iamkjuujgqu peptide B mass conc (Bld)NormalUniversity Hospitals Tripoint Medical CenterComment on above:Result Comment: Pro-BNP Reference Range:Rule Out: <300Grey Zone: Age <50 300-450 Age 50-75 300-900 Age >75 300-1800Usually represents mild to moderate HF but other cardiopulmonary causes cannot be ruled out.Rule In: Age <50 >450 Age 50-75 >900 Age >75 >1800Performed By: #### ERTPF, CONNER, LIP, LIVP, TEGCR ####[facility] [address] [place] [address] Natriuretic peptide B mass conc (Bld)648 pg/mLHigh<300[facility] CenterComment on above:Result Comment: Pro-BNP results cannot be compared to BNP results.Performed By: #### ERTPF, CONNER, LIP, LIVP, TEGCR ####[place], [place] [phone] 61-31-8571Exudhckzdog distribution width Auto Ratio (RBC)16.7 %High11.8-14.4 [facility] CenterComment on above:Performed By: #### ERTPF, CONNER, LIP, LIVP, TEGCR ####[place] [address] [phone] Auto Volume Fraction (Bld)26.2 %Low40.7-50.3MLos Alamitos Medical CenterComment on above:Performed By: #### ERTPF, CONNER, LIP, LIVP, TEGCR ####[address] [address] Hemoglobin mass conc (Bld)8.4 g/dLLow13.0-17.0[facility] Comment on above:Performed By: #### ERTPF, CONNER, LIP, LIVP, TEGCR ####[address] [address] MCH Auto Entitic mass (RBC)29.5 epAxrgxq69.2-33.5MerScripps Mercy HospitalComment on above: Performed By: #### ERTPF, CONNER, LIP, LIVP, TEGCR ####[address] [address] MCHC Auto mass conc (RBC)32.1 g/dLNormal 28.4-34.8[facility] CenterComment on above:Performed By: #### ERTPF, CONNER, LIP, LIVP, TEGCR ####[address] [address] MCV Auto Entitic volume (RBC)91.9 gBWzvxte84.6-102.9[facility] CenterComment on above:Performed By: #### ERTPF, CONNER, LIP, LIVP, TEGCR ####[place] [address] NRBC Automated0.3 per 100 WBCHigh0.0[facility] CenterComment on above: Performed By: #### ERTPF, CONNER, LIP, LIVP, TEGCR ####[place] [address] Platelet mean volume Auto Entitic volume (Bld)11.8 fLNormal8.1-13.5[facility] CenterComment on above: Performed By: #### ERTPF, CONNER, LIP, LIVP, TEGCR ####[place] [address] Platelets Auto #/vol (Bld)507 10*3/uLHigh 138-453[facility] CenterComment on above:Performed By: #### ERTPF, CONNER, LIP, LIVP, TEGCR ####[place] [address] RBC Auto #/vol (Bld)2.85 10*6/uLLow4.21-5.77[facility] CenterComment on above:Performed By: #### ERTPF, CONNER, LIP, LIVP, TEGCR ####[address] [address] WBC Auto #/vol (Bld)25.9 10*3/uLHigh3.5-11.3MLos Alamitos Medical CenterComment on above: Performed By: #### ERTPF, CONNER, LIP, LIVP, TEGCR ####[address], [place] [address] Magnesiumon 50-82-3747Jwcpqxjvi mass conc 2.4 mg/dLNormal1.6-2.6[facility] Medical CenterComment on above:Performed By: #### ERTPF, CONNER, LIP, LIVP, TEGCR ####[facility] [address] [place], [place] [address] Phosphorus, Inorg.on 38-54-7408Vjhcftljxa, Inorg.5.1 mg/dLHigh2.5-4.5[facility] Medical CenterComment on above: Performed By: #### ERTPF, CONNER, LIP, LIVP, TEGCR ####[facility] [address]xv[address] [place], [place] [address] XR CHEST PORTABLEon 31-19-8017KB CHEST PORTABLEEXAMINATION:SINGLE XRAY VIEW OF THE CHEST02/12/2018 [...] the lungs.Interpreted by:NADEGE Burksigned by:Fidel Marley MD02/12/18inal resultNormalMerScripps Mercy HospitalBasic Metabolic Prof on 02-11-2018(cont.)NormalMercy Community Regional Medical CenterComment on above: Result Comment: Average GFR for 50-59 years old: 93 mL/min/1.73sq mChronic Kidney Disease: <60 mL/min/1.73sq mKidney failure: <15 mL/min/1.73sq meGFR calculated using average adult body mass. Additional eGFR calculator available at:http://www.NetShoes.StylePuzzle/multiple_crcl_2012.htmPerformed By: #### ERTPF, CONNER, LIP, LIVP, TEGCR ####[facility] [address]vrg[address]hexlkxw[address] [place] [address] Anion gap 3 molar conc19 mmol/LHigh9-17[facility] CenterComment on above:Performed By: #### ERTPF, CONNER, LIP, LIVP, TEGCR ####[facility] [address] [place] [address] Calcium mass conc8.8 mg/dLNormal8.6-10.4[facility] CenterComment on above:Performed By: #### ERTPF, CONNER, LIP, LIVP, TEGCR ####[facility] [address] [place] [address] Chloride molar mach609 mmol/BJlpeig98-034IffzbUniversity Hospitals Tripoint Medical CenterComment on above:Performed By: #### ERTPF, CONNER, LIP, LIVP, TEGCR ####[place] [address] [place] [address] CO2 molar conc17 mmol/XKdw05-09DtsxfUniversity Hospitals Tripoint Medical CenterComment on above: Performed By: #### ERTPF, CONNER, LIP, LIVP, TEGCR ####[facility] [address] [place] [address] Creatinine mass conc2.91 mg/dLHigh 0.70-1.20[facility] CenterComment on above:Performed By: #### ERTPF, CONNER, LIP, LIVP, TEGCR ####[facility] [address] [place] [address] GFR, Amer27 mL/minLow>60[facility] Medical CenterComment on above:Performed By: #### ERTPF, CONNER, LIP, LIVP, TEGCR ####[facility] [address] [place] [address] GFR,non Amer22 mL/minLow>60[facility] Medical CenterComment on above:Performed By: #### ERTPF, CONNER, LIP, LIVP, TEGCR ####[facility] [address] [place] [address] Glucose mass aoad197 mg/nNXjgd10-08Jefka [facility] Medical CenterComment on above:Performed By: #### ERTPF, CONNER, LIP, LIVP, TEGCR ####[place] [address] Potassium molar conc3.4 mmol/LLow3.7-5.3[facility] Medical CenterComment on above:Performed By: #### ERTPF, CONNER, LIP, LIVP, TEGCR ####[address] [address] Sodium molar vugr356 mmol/VWmqhvr769-099QaswsScripps Mercy HospitalComment on above:Performed By: #### ERTPF, CONNER, LIP, LIVP, TEGCR ####[address] [address] Urea nitrogen mass conc75 mg/dLHigh6-20MerScripps Mercy HospitalComment on above: Performed By: #### ERTPF, CONNER, LIP, LIVP, TEGCR ####[place] [address] BUN/CRE RatioNOT REPORTEDNormal9-20MerScripps Mercy HospitalComment on above:Performed By: #### ERTPF, CONNER, LIP, LIVP, TEGCR ####[facility] [address] [place] [address] Staging:NOT REPORTEDNormalUniversity Hospitals Tripoint Medical CenterComment on above: Performed By: #### ERTPF, CONNER, LIP, LIVP, TEGCR ####SarithaAbcelluteXbekxydtvous[address] [place] [address] Brain Natri. Peptideon 02-11-2018 Natriuretic peptide B mass conc (Bld)NormalUniversity Hospitals Tripoint Medical Center Comment on above:Result Comment: Pro-BNP Reference Range:Rule Out: <300Grey Zone: Age <50 300-450 Age 50-75 300-900 Age >75 300-1800Usually represents mild to moderate HF but other cardiopulmonary causes cannot be ruled out.Rule In: Age <50 >450 Age 50-75 >900 Age >75 >1800Performed By: #### ERTPF, CONNER, LIP, LIVP, TEGCR ####[facility] CenterAbcelluteXrtepzxddoig[address] [place] [address] Natriuretic peptide B mass conc (Bld)1407 pg/mLHigh<300[facility] CenterComment on above:Result Comment: Pro-BNP results cannot be compared to BNP results.Performed By: #### ERTPF, CONNER, LIP, LIVP, TEGCR ####Filomena [address] [place] [address] CBCon 02-11-2018 Erythrocyte distribution width Auto Ratio (RBC)16.7 %High11.8-14.4[facility] Medical CenterComment on above:Performed By: #### ERTPF, CONNER, LIP, LIVP, TEGCR ####SarithaAbcelluteSitsfnchxmcd3483 [place] [address] Hematocrit Auto Volume Fraction (Bld)28.4 %Low40.7-50.3[facility]y [facility] Medical CenterComment on above:Performed By: #### ERTPF, CONNER, LIP, LIVP, TEGCR ####Ensenda [address] [place] [address] Hemoglobin mass conc (Bld)9.1 g/dLLow13.0-17.0[facility] CenterComment on above:Performed By: #### ERTPF, CONNER, LIP, LIVP, TEGCR ####[facility] [address] [place] [address] MC Auto Entitic mass (RBC)29.3 pgNormal 25.2-33.5[facility] CenterComment on above:Performed By: #### ERTPF, CONNER, LIP, LIVP, TEGCR ####[facility] [address]trprz[address] [place] [address] MCHC Auto mass conc (RBC)32.0 g/cKOixjce58.4-34.8[facility] CenterComment on above:Performed By: #### ERTPF, CONNER, LIP, LIVP, TEGCR ####[place] [address] MCV Auto Entitic volume (RBC)91.3 zFIvdhel73.6-102.9[facility] Comment on above:Performed By: #### ERTPF, CONNER, LIP, LIVP, TEGCR ####[place] [address] NRBC Automated0.3 per 100 WBCHigh0.0[facility] CenterComment on above:Performed By: #### ERTPF, CONNER, LIP, LIVP, TEGCR ####[facility] [address] [place] [address] Platelet mean volume Auto Entitic volume (Bld)11.7 fLNormal 8.1-13.5[facility] CenterComment on above:Performed By: #### ERTPF, CONNER, LIP, LIVP, TEGCR ####[place] [address] Platelets Auto #/vol (Bld)466 10*3/rTIqno006-886SxihxUniversity Hospitals Tripoint Medical CenterComment on above:Performed By: #### ERTPF, CONNER, LIP, LIVP, TEGCR ####Filomena [address]teuxjoy[address] [place] [address] RBC Auto #/vol (Bld)3.11 10*6/uLLow4.21-5.77[facility] CenterComment on above:Performed By: #### ERTPF, CONNER, LIP, LIVP, TEGCR ####Filomena [address] [place] [address] WBC Auto #/vol (Bld)24.8 10*3/uLHigh3.5-11.3MLos Alamitos Medical CenterComment on above:Performed By: #### ERTPF, CONNER, LIP, LIVP, TEGCR ####Filomena [address] [address] Triglycerideson 94-68-4396Sidhrykviohy mass conc 202 mg/dLHigh<150[facility] Medical CenterComment on above:Result Comment: Triglyceride Guidelines: <150 Desirable 150-199 Borderline 200-499 High >499 Very high Based on AHA Guidelines for fasting triglyceride, February 2012. Performed By: #### ERTPF, CONNER, LIP, LIVP, TEGCR ####Filomena [address] [place] [address] [phone] Metabolic Profon 02-10-2018(cont.) NormalUniversity Hospitals Tripoint Medical CenterComment on above:Result Comment: Average GFR for 50-59 years old: 93 mL/min/1.73sq mChronic Kidney Disease: <60 mL /min/1.73sq mKidney failure: <15 mL/min/1.73sq meGFR calculated using average adult body mass. Additional eGFR calculator available at:http://www.NetShoes.StylePuzzle/multiple_crcl_2012.htmPerformed By: #### ERTPF, CONNER, LIP, LIVP, TEGCR ####Sarithay [address]ufomtqer[address] [place] 43[address] Anion gap 3 molar conc17 mmol/LNormal9-17[facility] CenterComment on above:Performed By: #### ERTPF, CONNER, LIP, LIVP, TEGCR ####[address] [address] Calcium mass conc9.0 mg/dLNormal8.6-10.4[facility] CenterComment on above: Performed By: #### ERTPF, CONNER, LIP, LIVP, TEGCR ####[address] [address] Chloride molar wqzh289 mmol/ADncugx46-610 [facility] CenterComment on above:Performed By: #### ERTPF, CONNER, LIP, LIVP, TEGCR ####[address] [address] ST6 molar conc19 mmol/NMer07-86ColafUniversity Hospitals Tripoint Medical Center Comment on above:Performed By: #### ERTPF, CONNER, LIP, LIVP, TEGCR ####[address] [address] Creatinine mass conc3.02 mg/dLHigh0.70-1.20[facility] CenterComment on above:Performed By: #### ERTPF, CONNER, LIP, LIVP, TEGCR ####[facility] [address] [place] [address] GFR, Amer26 mL/minLow>60[facility] Medical CenterComment on above:Performed By: #### ERTPF, CONNER, LIP, LIVP, TEGCR ####[address] [address] GFR,non Amer22 mL/minLow>60[facility] CenterComment on above: Performed By: #### ERTPF, CONNER, LIP, LIVP, TEGCR ####[facility] [address] [place] [address] Glucose mass lhtt396 mg/kUAtww52-71Krzub [facility] Medical CenterComment on above:Performed By: #### ERTPF, CONNER, LIP, LIVP, TEGCR ####[address] [address] Potassium molar conc3.5 mmol/LLow3.7-5.3[facility] Medical CenterComment on above:Performed By: #### ERTPF, CONNER, LIP, LIVP, TEGCR ####[address] [address] Sodium molar xvdw049 mmol/ZAzyhsy635-593BgbrfUniversity Hospitals Tripoint Medical CenterComment on above:Performed By: #### ERTPF, CONNER, LIP, LIVP, TEGCR ####[address] [address] Urea nitrogen mass conc71 mg/dLHigh6-20[facility] CenterComment on above:Performed By: #### ERTPF, CONNER, LIP, LIVP, TEGCR ####[address] [address] BUN/CRE RatioNOT REPORTEDNormal9-20[facility] CenterComment on above:Performed By: #### ERTPF, CONNER, LIP, LIVP, TEGCR ####[address] [address] Staging:NOT REPORTEDNormalUniversity Hospitals Tripoint Medical CenterComment on above:Performed By: #### ERTPF, CONNER, LIP, LIVP, TEGCR ####[address] [address] Brain Natri. Peptideon 94-50-8291Rbwnpiiixax peptide B mass conc (Bld)NormalMerScripps Mercy HospitalComment on above:Result Comment: Pro-BNP Reference Range:Rule Out: <300Grey Zone: Age <50 300-450 Age 50-75 300-900 Age >75 300- 1800Usually represents mild to moderate HF but other cardiopulmonary causes evelyne ot be ruled out.Rule In: Age <50 >450 Age 50-75 >900 Age >75 >1800Performed By: #### ERTPF, CONNER, LIP, LIVP, TEGCR ####[address] [address] Natriuretic peptide B mass conc (Bld)1392 pg/mLHigh<300 [facility] CenterComment on above:Result Comment: Pro-BNP results cannot be compared to BNP results.Performed By: #### ERTPF, CONNER, LIP, LIVP, TEGCR ####[address] [phone] 13-26-1422Fzstzzobwcx distribution width Auto Ratio (RBC)17.3 %High11.8-14.4 [facility] CenterComment on above:Performed By: #### ERTPF, CONNER, LIP, LIVP, TEGCR ####[address] [address] [phone] Auto Volume Fraction (Bld)30.3 %Low40.7-50.3[facility]y [facility] CenterComment on above:Performed By: #### ERTPF, CONNER, LIP, LIVP, TEGCR ####[address] [address] Hemoglobin mass conc (Bld)9.1 g/dLLow13.0-17.0[facility] Comment on above:Performed By: #### ERTPF, CONNER, LIP, LIVP, TEGCR ####[address] [address] MCH Auto Entitic mass (RBC)29.4 syHomjeb55.2-33.5[facility] CenterComment on above: Performed By: #### ERTPF, CONNER, LIP, LIVP, TEGCR ####[facility] Cent[facility]nie [address]cglkrmfxkc[address] [place] [address] MCHC Auto mass conc (RBC)30.0 g/dLNormal 28.4-34.8[facility] CenterComment on above:Performed By: #### ERTPF, CONNER, LIP, LIVP, TEGCR ####[facility] [address] [place] [address] MCV Auto Entitic volume (RBC)98.1 kHXmagvx96.6-102.9[facility] CenterComment on above:Performed By: #### ERTPF, CONNER, LIP, LIVP, TEGCR ####[place] [address] NRBC Automated0.4 per 100 WBCHigh0.0[facility] CenterComment on above: Performed By: #### ERTPF, CONNER, LIP, LIVP, TEGCR ####[place] [address] Platelet mean volume Auto Entitic volume (Bld)11.5 fLNormal8.1-13.5[facility] CenterComment on above: Performed By: #### ERTPF, CONNER, LIP, LIVP, TEGCR ####[place] [address] Platelets Auto #/vol (Bld)526 10*3/uLHigh 138-453[facility] CenterComment on above:Performed By: #### ERTPF, CONNER, LIP, LIVP, TEGCR ####[place] [address] RBC Auto #/vol (Bld)3.09 10*6/uLLow4.21-5.77[facility] CenterComment on above:Performed By: #### ERTPF, CONNER, LIP, LIVP, TEGCR ####[address] [address] WBC Auto #/vol (Bld)24.5 10*3/uLHigh3.5-11.3[facility] Medical CenterComment on above: Performed By: #### ERTPF, CONNER, LIP, LIVP, TEGCR ####[address] [address] Specimen Rejectionon [id number] for rejectionUnable to perform testing: Specimen hemolyzed.[facility] CenterComment on above:Performed By: #### ERTPF, CONNER, LIP, LIVP, TEGCR ####[address] [address] Source of sample.BLOODNoThe [facility] SystemComment on above:Performed By: #### ERTPF, CONNER, LIP, LIVP, TEGCR ####[address] [address] Test orderedBMPNormalUniversity Hospitals Tripoint Medical Center Comment on above:Performed By: #### ERTPF, CONNER, LIP, LIVP, TEGCR ####[address] [address] -----NOT REPORTEDNormal [facility] Tripoint Medical CenterComment on above:Performed By: #### ERTPF, CONNER, LIP, LIVP, TEGCR ####[address] [address] XR ABDOMEN (KUB) (SINGLE AP VIEW)on 05-23-7563AI ABDOMEN (KUB) (SINGLE AP VIEW)EXAMINATION:SINGLE SUPINE XRAY VIEW(S) OF THE SSLBCKT3402/10/2018 2:04 pmCOMPARISON:None.HISTORY:ORDERING SYSTEM PROVIDED HISTORY: s/p PEGTECHNOLOGIST PROVIDED HISTORY:With gastrografin to determine for leakPlease call [phone] for questions.Reason for exam:->s/p PEGFINDINGS:Diffuse bowel distention. A gastrostomy tube is present in the left upperquadrant. The balloon is inflated. Injected contrast opacifies the stomach.No extravasation of contrast.IMPRESSION: No extravasation of contrast.Interpreted by:NADEGE Lancasterigned by:Hebert Best MD02/10/18inal resultNormalUniversity Hospitals Tripoint Medical CenterBasic Metabolic Profon 02-09-2018(cont.)NormalUniversity Hospitals Tripoint Medical CenterComment on above:Result Comment: Average GFR for 50-59 years old: 93 mL/min/1.73sq mChronic Kidney Disease: <60 mL/min/1.73sq mKidney failure: <15 mL/min/1.73sq meGFR calculated using average adult body mass. Additional eGFR calculator available at:http://www.raksul/multiple_crcl_2012.htmPerformed By: #### ERTPF, CONNER, LIP, LIVP, TEGCR ####[facility] CenterAbcelluteNsvitcbmtgbk1032 [place] [address] Anion gap 3 molar conc16 mmol/LNormal9-17[facility] Medical CenterComment on above:Performed By: #### ERTPF, CONNER, LIP, LIVP, TEGCR ####[facility] CenterAbcelluteWrqpweopgrmu6226 [place] [address] Calcium mass conc8.3 mg/dLLow8.6-10.4[facility] Medical CenterComment on above:Performed By: #### ERTPF, CONNER, LIP, LIVP, TEGCR ####[employer] [place] [address] Chloride molar vojg575 mmol/ORnaq55-142 [facility] Medical CenterComment on above:Performed By: #### ERTPF, CONNER, LIP, LIVP, TEGCR ####[facility] Fmbffsqkgmzd0227 [place] [address] FA2 molar conc18 mmol/XOmv19-58GgubfUniversity Hospitals Tripoint Medical Center Comment on above:Performed By: #### ERTPF, CONNER, LIP, LIVP, TEGCR ####[facility] [address] [place] [address] Creatinine mass conc3.10 mg/dLHigh0.70-1.20MerScripps Mercy HospitalComment on above:Performed By: #### ERTPF, CONNER, LIP, LIVP, TEGCR ####[facility] Uvcxonlbdhh[address] [place] [address] GFR, Amer25 mL/minLow>60[facility] Medical CenterComment on above:Performed By: #### ERTPF, CONNER, LIP, LIVP, TEGCR ####[facility] [address] [place] [address] GFR,non Amer21 mL/minLow>60[facility] Medical CenterComment on above: Performed By: #### ERTPF, CONNER, LIP, LIVP, TEGCR ####[facility] Ji[address] [place] [address] Glucose mass svpn580 mg/pUTnmt58-29Zylpf [facility] CenterComment on above:Performed By: #### ERTPF, CONNER, LIP, LIVP, TEGCR ####[address] [address] Potassium molar conc4.0 mmol/LNormal3.7-5.3[facility] Comment on above:Performed By: #### ERTPF, CONNER, LIP, LIVP, TEGCR ####[facility] H[address] [place] [address] Sodium molar zyjc705 mmol/LOutkxa810-021StnkuScripps Mercy HospitalComment on above:Performed By: #### ERTPF, CONNER, LIP, LIVP, TEGCR ####[facility] Huuhvclmbes[address] [place] [address] [phone] nitrogen mass conc67 mg/dLHigh6-20[facility] Medical CenterComment on above:Performed By: #### ERTPF, CONNER, LIP, LIVP, TEGCR ####[facility] Pkahgphazhpn0791 [place] [address] BUN/CRE RatioNOT REPORTEDNormal9-20[facility] Medical CenterComment on above:Performed By: #### ERTPF, CONNER, LIP, LIVP, TEGCR ####[facility] Buhrljupohrc7[address] [place], [place] [phone]:NOT REPORTEDNormalUniversity Hospitals Tripoint Medical CenterComment on above:Performed By: #### ERTPF, CONNER, LIP, LIVP, TEGCR ####[address] [phone] Natri. Peptideon 67-30-0811Uwmtovxsilv peptide B mass conc (Bld)NormalUniversity Hospitals Tripoint Medical CenterComment on above:Result Comment: Pro-BNP Reference Range:Rule Out: <300Grey Zone: Age <50 300-450 Age 50-75 300-900 Age >75 300- 1800Usually represents mild to moderate HF but other cardiopulmonary causes evelyne ot be ruled out.Rule In: Age <50 >450 Age 50-75 >900 Age >75 >1800Performed By: #### ERTPF, CONNER, LIP, LIVP, TEGCR ####[facility] Vmvxzelapxyp2845 [place], [place] [phone] peptide B mass conc (Bld)1435 pg/mLHigh<300 [facility] Tri[facility] Medical CenterComment on above:Result Comment: Pro-BNP results cannot be compared to BNP results.Performed By: #### ERTPF, CONNER, LIP, LIVP, TEGCR ####[facility] Ywwmjooooacg0316 [place], [place] [phone] 28-13-3479Yrlvrzazwxh distribution width Auto Ratio (RBC)17.7 %High11.8-14.4 [facility] Medical CenterComment on above:Performed By: #### ERTPF, CONNER, LIP, LIVP, TEGCR ####[address] [place] 43[address] Hematocrit Auto Volume Fraction (Bld)29.4 %Low40.7-50.3[facility]y [facility] CenterComment on above:Performed By: #### ERTPF, CONNER, LIP, LIVP, TEGCR ####[address] [address] Hemoglobin mass conc (Bld)8.8 g/dLLow13.0-17.0[facility] Comment on above:Performed By: #### ERTPF, CONNER, LIP, LIVP, TEGCR ####[address] [address] MCH Auto Entitic mass (RBC)29.2 lqPsdilp25.2-33.5[facility] Medical CenterComment on above: Performed By: #### ERTPF, CONNER, LIP, LIVP, TEGCR ####[address] [address] MCHC Auto mass conc (RBC)29.9 g/dLNormal 28.4-34.8[facility] Medical CenterComment on above:Performed By: #### ERTPF, CONNER, LIP, LIVP, TEGCR ####[address] [address] MCV Auto Entitic volume (RBC)97.7 cQVlsggb05.6-102.9[facility] Medical CenterComment on above:Performed By: #### ERTPF, CONNER, LIP, LIVP, TEGCR ####[address] [address] NRBC Automated0.9 per 100 WBCHigh0.0[facility] Tripoint Medical CenterComment on above: Performed By: #### ERTPF, CONNER, LIP, LIVP, TEGCR ####[place] [address] [place] [address] Platelet mean volume Auto Entitic volume (Bld)11.5 fLNormal8.1-13.5[facility] Medical CenterComment on above: Performed By: #### ERTPF, CONNER, LIP, LIVP, TEGCR ####[facility] [address] [place] [address] Platelets Auto #/vol (Bld)458 10*3/uLHigh 138-453[facility] Medical CenterComment on above:Performed By: #### ERTPF, CONNER, LIP, LIVP, TEGCR ####[place] [address] [address] RBC Auto #/vol (Bld)3.01 10*6/uLLow4.21-5.77[facility] Medical CenterComment on above:Performed By: #### ERTPF, CONNER, LIP, LIVP, TEGCR ####[place] [address] WBC Auto #/vol (Bld)19.8 10*3/uLHigh3.5-11.3[facility]y [facility] CenterComment on above: Performed By: #### ERTPF, CONNER, LIP, LIVP, TEGCR ####[facility] Centerernie [place], [place] [phone] Metabolic Profon 02-08-2018(cont.) NormalUniversity Hospitals Tripoint Medical CenterComment on above:Result Comment: Average GFR for 50-59 years old: 93 mL/min/1.73sq mChronic Kidney Disease: <60 mL /min/1.73sq mKidney failure: <15 mL/min/1.73sq meGFR calculated using average adult body mass. Additional eGFR calculator available at:http://www.NetShoes.com/multiple_crcl_2012.htmPerformed By: #### ERTPF, CONNER, LIP, LIVP, TEGCR ####[facility] Ibcknfqxdrle7972 [place] 43[address] Anion gap 3 molar conc13 mmol/LNormal9-17[facility] CenterComment on above:Performed By: #### ERTPF, CONNER, LIP, LIVP, TEGCR ####[address] [address] Calcium mass conc8.3 mg/dLLow8.6-10.4[facility] Medical CenterComment on above: Performed By: #### ERTPF, CONNER, LIP, LIVP, TEGCR ####[address] [address] Chloride molar xuvy782 mmol/HRgcu56-469 [facility] Medical CenterComment on above:Performed By: #### ERTPF, CONNER, LIP, LIVP, TEGCR ####[address] [address] FP3 molar conc17 mmol/JXbu08-84IasjpUniversity Hospitals Tripoint Medical Center Comment on above:Performed By: #### ERTPF, CONNER, LIP, LIVP, TEGCR ####[address] [address] Creatinine mass conc3.39 mg/dLHigh0.70-1.20[facility] Medical CenterComment on above:Performed By: #### ERTPF, CONNER, LIP, LIVP, TEGCR ####[address] [place] [address] GFR, Amer23 mL/minLow>60MerScripps Mercy HospitalComment on above:Performed By: #### ERTPF, CONNER, LIP, LIVP, TEGCR ####[address] [address] GFR,non Amer19 mL/minLow>60MerScripps Mercy HospitalComment on above: Performed By: #### ERTPF, CONNER, LIP, LIVP, TEGCR ####[facility] [address] [place] [address] Glucose mass kveo442 mg/bKLazu06-06Bysmy [facility] Medical CenterComment on above:Performed By: #### ERTPF, CONNER, LIP, LIVP, TEGCR ####[facility] Njavkoeedgfc[address] [place] [address] Potassium molar conc4.3 mmol/LNormal3.7-5.3MLos [facility]amitos Medical Center Comment on above:Performed By: #### ERTPF, CONNER, LIP, LIVP, TEGCR ####[address] [address] Sodium molar jrlt919 mmol/CRbsidn348-101YybtxUniversity Hospitals Tripoint Medical CenterComment on above:Performed By: #### ERTPF, CONNER, LIP, LIVP, TEGCR ####[address] [address] Urea nitrogen mass conc68 mg/dLHigh6-20[facility] CenterComment on above:Performed By: #### ERTPF, CONNER, LIP, LIVP, TEGCR ####[facility] Ur[address] [place] [address] BUN/CRE RatioNOT REPORTEDNormal9-20[facility] CenterComment on above:Performed By: #### ERTPF, CONNER, LIP, LIVP, TEGCR ####[address] [address] Staging:NOT REPORTEDNormalUniversity Hospitals Tripoint Medical CenterComment on above:Performed By: #### ERTPF, CONNER, LIP, LIVP, TEGCR ####[facility] Iketjarphfns[address] [place] [address] Brain Natri. Peptideon 92-90-0631Yktbopmwrsi peptide B mass conc (Bld)NormalUniversity Hospitals Tripoint Medical CenterComment on above:Result Comment: Pro-BNP Reference Range:Rule Out: <300Grey Zone: Age <50 300-450 Age 50-75 300-900 Age >75 300- 1800Usually represents mild to moderate HF but other cardiopulmonary causes evelyne ot be ruled out.Rule In: Age <50 >450 Age 50-75 >900 Age >75 >1800Performed By: #### ERTPF, CONNER, LIP, LIVP, TEGCR ####[address] [address] Natriuretic peptide B mass conc (Bld)1933 pg/mLHigh<300 [facility] CenterComment on above:Result Comment: Pro-BNP results cannot be compared to BNP results.Performed By: #### ERTPF, CONNER, LIP, LIVP, TEGCR ####[address] [phone] 40-56-7674Bnckuipwrdr distribution width Auto Ratio (RBC)18.3 %High11.8-14.4 [facility] Medical CenterComment on above:Performed By: #### ERTPF, CONNER, LIP, LIVP, TEGCR ####[address] [address] Hematocrit Auto Volume Fraction (Bld)26.2 %Low40.7-50.3MLos Alamitos Medical CenterComment on above:Performed By: #### ERTPF, CONNER, LIP, LIVP, TEGCR ####[facility] [address]qu[address] [place] [address] Hemoglobin mass conc (Bld)8.0 g/dLLow13.0-17.0[facility] Comment on above:Performed By: #### ERTPF, CONNER, LIP, LIVP, TEGCR ####[address] [address] MCH Auto Entitic mass (RBC)29.6 alMmvbsz46.2-33.5[facility] Medical CenterComment on above: Performed By: #### ERTPF, CONNER, LIP, LIVP, TEGCR ####[facility] [address] [place] [address] MCHC Auto mass conc (RBC)30.5 g/dLNormal 28.4-34.8[facility] CenterComment on above:Performed By: #### ERTPF, CONNER, LIP, LIVP, TEGCR ####[place] [address] MCV Auto Entitic volume (RBC)97.0 pJJkwkzj28.6-102.9[facility] Medical CenterComment on above:Performed By: #### ERTPF, CONNER, LIP, LIVP, TEGCR ####[facility] Pcropeihypb[address] [place] [address] NRBC Automated1.2 per 100 WBCHigh0.0[facility] CenterComment on above: Performed By: #### ERTPF, CONNER, LIP, LIVP, TEGCR ####[place] [address] Platelet mean volume Auto Entitic volume (Bld)12.1 fLNormal8.1-13.5[facility] Medical CenterComment on above: Performed By: #### ERTPF, CONNER, LIP, LIVP, TEGCR ####[place] [address] Platelets Auto #/vol (Bld)373 10*3/uL Alzplb307-630BjvatUniversity Hospitals Tripoint Medical CenterComment on above:Performed By: #### ERTPF, CONNER, LIP, LIVP, TEGCR ####[place] [address] RBC Auto #/vol (Bld)2.70 10*6/uLLow4.21-5.77[facility] CenterComment on above:Performed By: #### ERTPF, CONNER, LIP, LIVP, TEGCR ####[place] [address] [place] [address] WBC Auto #/vol (Bld)23.8 10*3/uLHigh3.5-11.3[facility]y [facility] CenterComment on above: Performed By: #### ERTPF, CONNER, LIP, LIVP, TEGCR ####[place] [address] Magnesiumon 66-56-7603Jbhpknery mass conc 2.4 mg/dLNormal1.6-2.6MLos Alamitos Medical CenterComment on above:Performed By: #### ERTPF, CONNER, LIP, LIVP, TEGCR ####[place] [address] [place] [address] Phosphorus, Inorg.on 33-26-8368Jtoefhbvtm, Inorg.5.7 mg/dLHigh2.5-4.5[facility] CenterComment on above: Performed By: #### ERTPF, CONNER, LIP, LIVP, TEGCR ####[place] [address] [address] Basic Metabolic Profon 02-07-2018(cont.) NormalUniversity Hospitals Tripoint Medical CenterComment on above:Result Comment: Average GFR for 50-59 years old: 93 mL/min/1.73sq mChronic Kidney Disease: <60 mL /min/1.73sq mKidney failure: <15 mL/min/1.73sq meGFR calculated using average adult body mass. Additional eGFR calculator available at:http://www.NetShoes.StylePuzzle/multiple_crcl_2012.htmPerformed By: #### ERTPF, CONNER, LIP, LIVP, TEGCR ####[facility] [address] [place] [address] Anion gap 3 molar conc11 mmol/LNormal9-17[facility] CenterComment on above:Performed By: #### ERTPF, CONNER, LIP, LIVP, TEGCR ####[facility] Vnmpvvfmwzkg4608 [place] [address] Calcium mass conc8.3 mg/dLLow8.6-10.4[facility] CenterComment on above: Performed By: #### ERTPF, CONNER, LIP, LIVP, TEGCR ####[address] [address] Chloride molar etob610 mmol/OUdqj53-257 [facility] CenterComment on above:Performed By: #### ERTPF, CONNER, LIP, LIVP, TEGCR ####[address] [address] JG3 molar conc16 mmol/DVsj58-68XgavoUniversity Hospitals Tripoint Medical Center Comment on above:Performed By: #### ERTPF, CONNER, LIP, LIVP, TEGCR ####[address] [address] Creatinine mass conc3.99 mg/dLHigh0.70-1.20[facility] CenterComment on above:Performed By: #### ERTPF, CONNER, LIP, LIVP, TEGCR ####[facility] Jyjlzitxmtal2349 [place] [address] GFR, Amer19 mL/minLow>60[facility] CenterComment on above:Performed By: #### ERTPF, CONNER, LIP, LIVP, TEGCR ####[facility] Uyjnfadwktvw1869 [place] [address] GFR,non Amer16 mL/minLow>60[facility] CenterComment on above: Performed By: #### ERTPF, CONNER, LIP, LIVP, TEGCR ####[facility] Cwvycvofoiig4941 [place] [address] Glucose mass yche349 mg/kVXtsc15-75Dflwx [facility] CenterComment on above:Performed By: #### ERTPF, CONNER, LIP, LIVP, TEGCR ####[address] [address] Potassium molar conc4.6 mmol/LNormal3.7-5.3[facility] Comment on above:Performed By: #### ERTPF, CONNER, LIP, LIVP, TEGCR ####[address] [address] Sodium molar yhxx213 mmol/TOkkejo303-522GznbgUniversity Hospitals Tripoint Medical CenterComment on above:Performed By: #### ERTPF, CONNER, LIP, LIVP, TEGCR ####[facility] [address] [place] [address] Urea nitrogen mass conc71 mg/dLHigh6-20[facility] CenterComment on above:Performed By: #### ERTPF, CONNER, LIP, LIVP, TEGCR ####[facility] Pdbowxksoonf0525 [place] [address] BUN/CRE RatioNOT REPORTEDNormal9-20[facility] CenterComment on above:Performed By: #### ERTPF, CONNER, LIP, LIVP, TEGCR ####[facility] Znlawsejxvan5844 [place] [address] Staging:NOT REPORTEDNormalUniversity Hospitals Tripoint Medical CenterComment on above:Performed By: #### ERTPF, CONNER, LIP, LIVP, TEGCR ####[facility] Ijrzfjgavctr[address] [place] [address] Brain Natri. Peptideon 50-98-7227Ktsslaydysc peptide B mass conc (Bld)1696 pg/mLHigh <300[facility] Medical CenterComment on above:Result Comment: Pro-BNP results cannot be compared to BNP results.Performed By: #### ERTPF, CONNER, LIP, LIVP, TEGCR ####[address] [address] Natriuretic peptide B mass conc (Bld)NormalUniversity Hospitals Tripoint Medical Center Comment on above:Result Comment: Pro-BNP Reference Range:Rule Out: <300Grey Zone: Age <50 300-450 Age 50-75 300-900 Age >75 300-1800Usually represents mild to moderate HF but other cardiopulmonary causes cannot be ruled out.Rule In: Age <50 >450 Age 50-75 >900 Age >75 >1800Performed By: #### ERTPF, CONNER, LIP, LIVP, TEGCR ####[address] [phone] 08-02-5343Uaivqolgfvy distribution width Auto Ratio (RBC)18.5 %High11.8-14.4 [facility] CenterComment on above:Performed By: #### ERTPF, CONNER, LIP, LIVP, TEGCR ####[address] [address] Hematocrit Auto Volume Fraction (Bld)23.5 %Low40.7-50.3[facility]y [facility] CenterComment on above:Performed By: #### ERTPF, CONNER, LIP, LIVP, TEGCR ####[address] [address] Hemoglobin mass conc (Bld)7.4 g/dLLow13.0-17.0[facility] Comment on above:Performed By: #### ERTPF, CONNER, LIP, LIVP, TEGCR ####[address] [address] MCH Auto Entitic mass (RBC)30.1 csZjmgka62.2-33.5[facility] CenterComment on above: Performed By: #### ERTPF, CONNER, LIP, LIVP, TEGCR ####[place] [address] [place] [address] MCHC Auto mass conc (RBC)31.5 g/dLNormal 28.4-34.8[facility] CenterComment on above:Performed By: #### ERTPF, CONNER, LIP, LIVP, TEGCR ####[place] [address] MCV Auto Entitic volume (RBC)95.5 fRZsrdpy86.6-102.9[facility] CenterComment on above:Performed By: #### ERTPF, CONNER, LIP, LIVP, TEGCR ####[place] [address] NRBC Automated1.5 per 100 WBCHigh0.0[facility] CenterComment on above: Performed By: #### ERTPF, CONNER, LIP, LIVP, TEGCR ####[place] [address] Platelet mean volume Auto Entitic volume (Bld)11.7 fLNormal8.1-13.5[facility] CenterComment on above: Performed By: #### ERTPF, CONNER, LIP, LIVP, TEGCR ####[place] [address] Platelets Auto #/vol (Bld)406 10*3/uL Vlcsaa580-080VetfaScripps Mercy HospitalComment on above:Performed By: #### ERTPF, CONNER, LIP, LIVP, TEGCR ####[place] [address] RBC Auto #/vol (Bld)2.46 10*6/uLLow4.21-5.77[facility] CenterComment on above:Performed By: #### ERTPF, CONNER, LIP, LIVP, TEGCR ####[facility] [address] [place], [place] [phone] Auto #/vol (Bld)24.8 10*3/uLHigh3.5-11.3[facility] Medical CenterComment on above: Performed By: #### ERTPF, CONNER, LIP, LIVP, TEGCR ####[facility] CenterSt[facility] [address]izjhpgdfuii7[address] [place], [place] [phone]/Hcton 68-55-7328Gqgegdnyzc Auto Volume Fraction (Bld)23.9 %Low40.7-50.3[facility] Medical CenterComment on above:Performed By: #### ERTPF, CONNER, LIP, LIVP, TEGCR ####[place] Z[address]mq[address]uxldq[address]3 [place], [place] [phone] mass conc (Bld)7.5 g/dLLow13.0-17.0[facility] CenterComment on above: Performed By: #### ERTPF, CONNER, LIP, LIVP, TEGCR ####[facility] CenterAbcelluteZvztgbjerikq[address] [place] [address] [phone] CHEST (SINGLE VIEW FRONTAL)on 86-37-1276IP CHEST (SINGLE VIEW FRONTAL)EXAMINATION:SINGLE XRAY VIEW OF [...] nterpreted by:NADEGE Lancasterigned by:Hebert Best MD02/07/18Final result NormalMerScripps Mercy HospitalAmylaseon 44-65-2872Xkcsvwe enzyme act/vol 167 U/LWqlc90-317Rwtfd [facility] Medical CenterComment on above:Performed By: #### ERTPF, CONNER, LIP, LIVP, TEGCR ####[facility] [address]zwz[address] [place] [address] Basic Metabolic Profon 58-76-9425Nkinw gap 3 molar conc15 mmol/LNormal9-17[facility] CenterComment on above:Performed By: #### ERTPF, CONNER, LIP, LIVP, TEGCR ####[facility] Zlzkiwjaqyti6822 [place] [address] Chloride molar hjey665 mmol/EVcuv81-150XyjhlUniversity Hospitals Tripoint Medical CenterComment on above:Performed By: #### ERTPF, CONNER, LIP, LIVP, TEGCR ####[address] [place] [address] Potassium molar conc4.5 mmol/LNormal3.7-5.3MLos Alamitos Medical CenterComment on above:Performed By: #### ERTPF, CONNER, LIP, LIVP, TEGCR ####[address] [place] [address] Sodium molar ycui346 mmol/VTvifof427-439 [facility] CenterComment on above:Performed By: #### ERTPF, CONNER, LIP, LIVP, TEGCR ####[address] [address] (cont.)NormalUniversity Hospitals Tripoint Medical CenterComment on above: Result Comment: Average GFR for 50-59 years old: 93 mL/min/1.73sq mChronic Kidney Disease: <60 mL/min/1.73sq mKidney failure: <15 mL/min/1.73sq meGFR calculated using average adult body mass. Additional eGFR calculator available at:http://www.NetShoes.StylePuzzle/multiple_crcl_2012.htmPerformed By: #### ERTPF, CONNER, LIP, LIVP, TEGCR ####[facility] Jkyvgfrblure[address] [place] 43[address] Calcium mass conc8.0 mg/dLLow8.6-10.4[facility] CenterComment on above:Performed By: #### ERTPF, CONNER, LIP, LIVP, TEGCR ####[facility] [address]ccvwqphqm[address] [place] [address] BD6 molar conc16 mmol/L Eso72-11KhmmjUniversity Hospitals Tripoint Medical CenterComment on above:Performed By: #### ERTPF, CONNER, LIP, LIVP, TEGCR ####[address] [place] [address] Creatinine mass conc4.02 mg/dLHigh0.70-1.20[facility] CenterComment on above:Performed By: #### ERTPF, CONNER, LIP, LIVP, TEGCR ####[address] [address] GFR, Amer19 mL/minLow>60[facility] CenterComment on above:Performed By: #### ERTPF, CONNER, LIP, LIVP, TEGCR ####[address] [place] [address] GFR,non Amer15 mL/minLow>60[facility] CenterComment on above:Performed By: #### ERTPF, CONNER, LIP, LIVP, TEGCR ####[facility] [address]wzxl24[address] [place] [address] Glucose mass znaa076 mg/oEGurq10-39IifgbLos Alamitos Medical CenterComment on above: Performed By: #### ERTPF, CONNER, LIP, LIVP, TEGCR ####[facility] [address]uanmsl[address] [place] [address] Urea nitrogen mass conc72 mg/dLHigh6-20 [facility] CenterComment on above:Performed By: #### ERTPF, CONNER, LIP, LIVP, TEGCR ####Sarithay Hbieqhpjyota2328 [place], [place] [address] BUN/CRE RatioNOT REPORTEDNormal9-20[facility] CenterComment on above:Performed By: #### ERTPF, CONNER, LIP, LIVP, TEGCR ####Filomena Uhpgihslncaw6847 [place], [place] [phone]:NOT REPORTED NormalUniversity Hospitals Tripoint Medical CenterComment on above:Performed By: #### ERTPF, CONNER, LIP, LIVP, TEGCR ####Filomena Fpkrzpsepkgo8746 [place] [address] Brain Natri. Peptideon 52-46-6512Yzzpdrddfxv peptide B mass conc (Bld)NormalUniversity Hospitals Tripoint Medical CenterComment on above:Result Comment: Pro- BNP Reference Range:Rule Out: <300[place]: Age <50 300-450 Age 50-75 300-900 Age >75 300-1800Usually represents mild to moderate HF but other cardiopulmonary causes cannot be ruled out.Rule In: Age <50 >450 Age 50-75 >900 Age >75 >1800 Performed By: #### ERTPF, CONNER, LIP, LIVP, TEGCR ####Filomena Rdacbjfjqjwq6134 [place] [address] Natriuretic peptide B mass conc (Bld)2505 pg/mLHigh<300[facility] CenterComment on above:Result Comment: Pro-BNP results cannot be compared to BNP results.Performed By: #### ERTPF, CONNER, LIP, LIVP, TEGCR ####Sarithay Ptwioxocqzrf4233 [place] [address] CBCon 31-57-5044Estguiehgzu distribution width Auto Ratio (RBC) 20.3 %High11.8-14.4[facility] CenterComment on above:Performed By: #### ERTPF, CONNER, LIP, LIVP, TEGCR ####[facility] Cqlvzaxmczqq7290 [place] [address] Hematocrit Auto Volume Fraction (Bld)22.9 %Low 40.7-50.3[facility] CenterComment on above:Performed By: #### ERTPF, CONNER, LIP, LIVP, TEGCR ####[facility] Rougeeox[address] [place] [address] Hemoglobin mass conc (Bld)6.9 g/dLCritically low13.0-17.0[facility] CenterComment on above:Performed By: #### ERTPF, CONNER, LIP, LIVP, TEGCR ####[facility] [address] [place] [address] MCH Auto Entitic mass (RBC)29.2 awBrqwwn71.2-33.5[facility] CenterComment on above:Performed By: #### ERTPF, CONNER, LIP, LIVP, TEGCR ####[facility] [address]af[address]klvgtpr[address] [place] [address] MCHC Auto mass conc (RBC)30.1 g/iBOlfpcz27.4-34.8[facility] CenterComment on above: Performed By: #### ERTPF, CONNER, LIP, LIVP, TEGCR ####[address] [address] MCV Auto Entitic volume (RBC)97.0 fL Mgqwbd64.6-102.9[facility] CenterComment on above:Performed By: #### ERTPF, CONNER, LIP, LIVP, TEGCR ####[facility] [address] [place] [address] NRBC Automated1.8 per 100 WBCHigh0.0[facility] CenterComment on above:Performed By: #### ERTPF, CONNER, LIP, LIVP, TEGCR ####[facility] [address] [place] [address] Platelet mean volume Auto Entitic volume (Bld)11.9 fLNormal8.1-13.5[facility] CenterComment on above:Performed By: #### ERTPF, CONNER, LIP, LIVP, TEGCR ####Filomena [address]jas[address] [place] [address] Platelets Auto #/vol (Bld)399 10*3/jURbgwhm083-432StxrpUniversity Hospitals Tripoint Medical CenterComment on above: Performed By: #### ERTPF, CONNER, LIP, LIVP, TEGCR ####[place] [address] RBC Auto #/vol (Bld)2.36 10*6/uLLow 4.21-5.77[facility] CenterComment on above:Performed By: #### ERTPF, CONNER, LIP, LIVP, TEGCR ####[place] [address] WBC Auto #/vol (Bld)25.6 10*3/uLHigh3.5-11.3MLos Alamitos Medical CenterComment on above:Performed By: #### ERTPF, CONNER, LIP, LIVP, TEGCR ####[address] [address] Creatine Kinaseon 22-35-4208GJ enzyme act/zww309 U/WIntp78-941PfnmmUniversity Hospitals Tripoint Medical CenterComment on above:Performed By: #### ERTPF, CONNER, LIP, LIVP, TEGCR ####[address] [address] Lactic Acid,Whole Blon 35-19-3844Gmrjxd Acid,Whole Bl0.7 mmol/LNormal0.7-2.1MLos Alamitos Medical CenterComment on above:Performed By: #### ERTPF, CONNER, LIP, LIVP, TEGCR ####[facility] Uiedwmggezgv4845 [place] [address] Lactic Acid,Whole Bl0.8 mmol/LNormal0.7-2.1MLos Alamitos Medical CenterComment on above:Performed By: #### ERTPF, CONNER, LIP, LIVP, TEGCR ####[facility] [place] [address] Lipaseon 26-37-7302Uhzmeu enzyme act/vol51 U/L Ymrgzv88-26XmhfuUniversity Hospitals Tripoint Medical CenterComment on above:Performed By: #### ERTPF, CONNER, LIP, LIVP, TEGCR ####[address] [place] [address] Myoglobinon 81-41-5119Culyfbrto mass zhsw142 ng/hUPlhw04-60 [facility] CenterComment on above:Performed By: #### ERTPF, CONNER, LIP, LIVP, TEGCR ####[address] [place] [address] Basic Metabolic Profon 02-05-2018(cont.)NormalUniversity Hospitals Tripoint Medical CenterComment on above:Result Comment: Average GFR for 50-59 years old: 93 mL/min/1.73sq mChronic Kidney Disease: <60 mL/min/1.73sq mKidney failure: <15 mL/min/1.73sq meGFR calculated using average adult body mass. Additional eGFR calculator available at:http://www.NetShoes.StylePuzzle/multiple_crcl_2012.htmPerformed By: #### ERTPF, CONNER, LIP, LIVP, TEGCR ####[address] [place], [place] [phone] gap 3 molar conc12 mmol/LNormal9-17[facility] CenterComment on above:Performed By: #### ERTPF, CONNER, LIP, LIVP, TEGCR ####[address] [place] [address] Calcium mass conc7.6 mg/dLLow8.6-10.4[facility] CenterComment on above:Performed By: #### ERTPF, CONNER, LIP, LIVP, TEGCR ####[facility] Aaldkjuyqqxd9389 [place] [address] Chloride molar njtl034 mmol/HBqcg93-643 [facility] CenterComment on above:Performed By: #### ERTPF, CONNER, LIP, LIVP, TEGCR ####[place] [place] [address] KA6 molar conc16 mmol/QXam99-29SsgqvUniversity Hospitals Tripoint Medical Center Comment on above:Performed By: #### ERTPF, CONNER, LIP, LIVP, TEGCR ####[address] [address] Creatinine mass conc3.63 mg/dLHigh0.70-1.20[facility] CenterComment on above:Performed By: #### ERTPF, CONNER, LIP, LIVP, TEGCR ####[facility] [place] [address] GFR, Amer21 mL/minLow>60[facility] CenterComment on above:Performed By: #### ERTPF, CONNER, LIP, LIVP, TEGCR ####[facility] Hysolteiwwgl2117 [place] [address] GFR,non Amer17 mL/minLow>60[facility] CenterComment on above: Performed By: #### ERTPF, CONNER, LIP, LIVP, TEGCR ####[facility] Jdsxnotyeyue8073 [place] [address] Glucose mass vonz172 mg/lSSluk77-28IzwcjLos Alamitos Medical CenterComment on above:Performed By: #### ERTPF, CONNER, LIP, LIVP, TEGCR ####[facility] [address] [place] [address] Potassium molar conc4.1 mmol/LNormal3.7-5.3[facility] Comment on above:Performed By: #### ERTPF, CONNER, LIP, LIVP, TEGCR ####[address] [address] Sodium molar tqjr118 mmol/FQmmkrc458-888OxxbdUniversity Hospitals Tripoint Medical CenterComment on above:Performed By: #### ERTPF, CONNER, LIP, LIVP, TEGCR ####[address] [address] Urea nitrogen mass conc69 mg/dLHigh6-20[facility] CenterComment on above:Performed By: #### ERTPF, CONNER, LIP, LIVP, TEGCR ####[address] [address] BUN/CRE RatioNOT REPORTEDNoal9-20[facility] CenterComment on above:Performed By: #### ERTPF, CONNER, LIP, LIVP, TEGCR ####[address] [address] Staging:NOT REPORTEDNormalUniversity Hospitals Tripoint Medical CenterComment on above:Performed By: #### ERTPF, CONNER, LIP, LIVP, TEGCR ####[facility] Bsenooh[address]jx[address] [place] [address] Calcium mass conc7.6 mg/dLLow8.6-10.4[facility] CenterComment on above: Performed By: #### ERTPF, CONNER, LIP, LIVP, TEGCR ####[facility] [address] [place] [address] Urea nitrogen mass conc72 mg/dLHigh6-20 [facility] CenterComment on above:Performed By: #### ERTPF, CONNER, LIP, LIVP, TEGCR ####[facility] Jufbfopwlhxv9687 [place] [address] Creatinine mass conc3.70 mg/dLHigh0.70-1.20[facility] CenterComment on above:Performed By: #### ERTPF, CONNER, LIP, LIVP, TEGCR ####[facility] Esnmezkehwjc4948 [place] [address] GFR, Amer21 mL/minLow>60[facility] CenterComment on above:Performed By: #### ERTPF, CONNER, LIP, LIVP, TEGCR ####[facility] Tzihwkneqmix0477 [place] [address] GFR,non Amer17 mL/minLow>60[facility] CenterComment on above:Performed By: #### ERTPF, CONNER, LIP, LIVP, TEGCR ####[facility] Pjqngddfiywy7212 [place] [address] (cont.) NormalUniversity Hospitals Tripoint Medical CenterComment on above:Result Comment: Average GFR for 50-59 years old: 93 mL/min/1.73sq mChronic Kidney Disease: <60 mL /min/1.73sq mKidney failure: <15 mL/min/1.73sq meGFR calculated using average adult body mass. Additional eGFR calculator available at:http://www.NetShoes.com/multiple_crcl_2012.htmPerformed By: #### ERTPF, CONNER, LIP, LIVP, TEGCR ####[facility] Vghqmmhqmusc7491 [place] [address] Anion gap 3 molar conc11 mmol/LNormal9-17[facility] CenterComment on above:Performed By: #### ERTPF, CONNER, LIP, LIVP, TEGCR ####[facility] Peujtymplivc6219 [place] [address] Chloride molar hvml136 mmol/LGhya39-226XhtlpUniversity Hospitals Tripoint Medical CenterComment on above: Performed By: #### ERTPF, CONNER, LIP, LIVP, TEGCR ####[address] [address] GJ1 molar conc17 mmol/WFep70-00CzqedUniversity Hospitals Tripoint Medical CenterComment on above:Performed By: #### ERTPF, CONNER, LIP, LIVP, TEGCR ####[facility] Icnoceprrlnm[address] [place] [address] Glucose mass wmkw638 mg/gMGoqk06-03EdxuzLos Alamitos Medical CenterComment on above: Performed By: #### ERTPF, CONNER, LIP, LIVP, TEGCR ####[address] [address] Potassium molar conc4.3 mmol/LNormal 3.7-5.3MLos Alamitos Medical CenterComment on above:Performed By: #### ERTPF, CONNER, LIP, LIVP, TEGCR ####[address] [address] Sodium molar hbyd875 mmol/OVsvtbh810-453VyqzhUniversity Hospitals Tripoint Medical CenterComment on above:Performed By: #### ERTPF, CONNER, LIP, LIVP, TEGCR ####[address] [address] BUN/CRE Ratio NOT REPORTEDNormal9-20[facility] CenterComment on above:Performed By: #### ERTPF, CONNER, LIP, LIVP, TEGCR ####[address] [phone]:NOT REPORTEDNormalUniversity Hospitals Tripoint Medical CenterComment on above:Performed By: #### ERTPF, CONNER, LIP, LIVP, TEGCR ####[address] [address] (cont.)Normal [facility] CenterComment on above:Result Comment: Average GFR for 50-59 years old: 93 mL/min/1.73sq mChronic Kidney Disease: <60 mL/min/1.73sq mKidney failure: <15 mL/min/1.73sq meGFR calculated using average adult body mass. Additional eGFR calculator available at:http://www.NetShoes.StylePuzzle/multiple_crcl_2012.htmPerformed By: #### ERTPF, CONNER, LIP, LIVP, TEGCR ####[address] [place] [address] Anion gap 3 molar conc14 mmol/LNormal9-17[facility] CenterComment on above:Performed By: #### ERTPF, CONNER, LIP, LIVP, TEGCR ####[address] [address] Calcium mass conc7.6 mg/dLLow8.6-10.4[facility] CenterComment on above: Performed By: #### ERTPF, CONNER, LIP, LIVP, TEGCR ####[address] [address] Chloride molar mqqx671 mmol/ENmua45-227 [facility] CenterComment on above:Performed By: #### ERTPF, CONNER, LIP, LIVP, TEGCR ####[address] [place] [address] WD6 molar conc18 mmol/RNlh95-30VguppUniversity Hospitals Tripoint Medical Center Comment on above:Performed By: #### ERTPF, CONNER, LIP, LIVP, TEGCR ####[address] [address] Creatinine mass conc3.53 mg/dLHigh0.70-1.20[facility] CenterComment on above:Performed By: #### ERTPF, CONNER, LIP, LIVP, TEGCR ####[facility] Kvaznrfzltoy7909 [place] [address] GFR, Amer22 mL/minLow>60[facility] CenterComment on above:Performed By: #### ERTPF, CONNER, LIP, LIVP, TEGCR ####[facility] Tvixeekvdkpx5395 [place] [address] GFR,non Amer18 mL/minLow>60MerScripps Mercy HospitalComment on above: Performed By: #### ERTPF, CONNER, LIP, LIVP, TEGCR ####[facility] Jusmxkjkbplz0596 [place] [address] Glucose mass srxz002 mg/dXIxln57-52Rssed [facility] Medical CenterComment on above:Performed By: #### ERTPF, CONNER, LIP, LIVP, TEGCR ####[facility] [address]cynv[address]xd[address] [place] [address] Potassium molar conc4.3 mmol/LNormal3.7-5.3[facility] Comment on above:Performed By: #### ERTPF, CONNER, LIP, LIVP, TEGCR ####[facility] Ggqyxzrcwezc0482 [place] [address] Sodium molar azul074 mmol/HScbn222-211IneqdUniversity Hospitals Tripoint Medical CenterComment on above:Performed By: #### ERTPF, CONNER, LIP, LIVP, TEGCR ####[facility] Xjlccfmyhcio2823 [place] [address] Urea nitrogen mass conc66 mg/dLHigh6-20[facility] CenterComment on above:Performed By: #### ERTPF, CONNER, LIP, LIVP, TEGCR ####[facility] Yazottbwybnb8544 [place] [address] Blood Bank Specimenon 35-50-9962Xbnlo Bank SpecimenNOT REPORTEDNormalUniversity Hospitals Tripoint Medical CenterCBCon 87-87-8875Lcxtrglaytz distribution width Auto Ratio (RBC) 18.7 %High11.8-14.4[facility] CenterComment on above:Performed By: #### ERTPF, CONNER, LIP, LIVP, TEGCR ####Filomena Hypsgywxxtpr8885 [place], [place] [phone] Auto Volume Fraction (Bld)18.8 %Low 40.7-50.3[facility] Medical CenterComment on above:Performed By: #### ERTPF, CONNER, LIP, LIVP, TEGCR ####[facility] [address] [place], [place] [phone] mass conc (Bld)5.5 g/dLCritically low13.0-17.0[facility] CenterComment on above:Performed By: #### ERTPF, CONNER, LIP, LIVP, TEGCR ####[facility] [address]xrzhxvogm[address] [place] [address] MCH Auto Entitic mass (RBC)30.6 jsEauzsw21.2-33.5[facility] CenterComment on above:Performed By: #### ERTPF, CONNER, LIP, LIVP, TEGCR ####[place] [phone] Auto mass conc (RBC)29.3 g/qPKzlmee46.4-34.8[facility] CenterComment on above: Performed By: #### ERTPF, CONNER, LIP, LIVP, TEGCR ####[facility] Aruxhxytneza3735 [place] [address] MCV Auto Entitic volume (RBC)104.4 fLHigh 82.6-102.9[facility] CenterComment on above:Performed By: #### ERTPF, CONNER, LIP, LIVP, TEGCR ####[facility] Hndalypqhjlv1444 [place], [place] [phone] Automated1.3 per 100 WBCHigh0.0[facility] CenterComment on above:Performed By: #### ERTPF, CONNER, LIP, LIVP, TEGCR ####Filomena [address]jas[address] [place] [address] Platelet mean volume Auto Entitic volume (Bld)12.0 fLNormal8.1-13.5[facility] Comment on above:Performed By: #### ERTPF, CONNER, LIP, LIVP, TEGCR ####Filomena Rojas[address] [place] [address] Platelets Auto #/vol (Bld)421 10*3/lHOqhdqv306-724DceekUniversity Hospitals Tripoint Medical CenterComment on above: Performed By: #### ERTPF, CONNER, LIP, LIVP, TEGCR ####[place] [address] RBC Auto #/vol (Bld)1.80 10*6/uLLow 4.21-5.77[facility] CenterComment on above:Performed By: #### ERTPF, CONNER, LIP, LIVP, TEGCR ####[facility] [address] [address] WBC Auto #/vol (Bld)28.9 10*3/uLHigh3.5-11.3MLos Alamitos Medical CenterComment on above:Performed By: #### ERTPF, CONNER, LIP, LIVP, TEGCR ####[address] [address] Cult,Bloodon 59-09-5801Oyau,BloodSpecimen Description .BLOOD Special Requests RT ARM 2ML Culture NO GROWTH 6 DAYS Report Status FINAL 02/05/2018NormalUniversity Hospitals Tripoint Medical CenterComment on above:Performed By: #### ERTPF, CONNER, LIP, LIVP, TEGCR ####[address] [place] [phone],BloodSpecimen Description .BLOOD Special Requests RT ARM 5ML Culture NO GROWTH 6 DAYS Report Status FINAL 02/05/2018NormalUniversity Hospitals Tripoint Medical CenterComment on above:Performed By: #### ERTPF, CONNER, LIP, LIVP, TEGCR ####Sarith[address] [address] Hgb/Hcton 76-03-6020Nxnktpzhkq Auto Volume Fraction (Bld)22.9 %Low40.7-50.3[facility] Medical CenterComment on above:Performed By: #### ERTPF, CONNER, LIP, LIVP, TEGCR ####Filomena [address] [phone] mass conc (Bld)6.9 g/dLCritically low13.0-17.0[facility] CenterComment on above:Performed By: #### ERTPF, CONNER, LIP, LIVP, TEGCR ####[facility] [address] [place] [address] TEG, Rapid Citratedon 10-16-5988QMF TEG 89.0 hgrCgpwba94-833JevtfUniversity Hospitals Tripoint Medical CenterComment on above:Performed By: #### ERTPF, CONNER, LIP, LIVP, TEGCR ####Filomena [address]lz[address] [place] [address] Angle, Rapid TEG81.8 iswKohz51-06MeiypUniversity Hospitals Tripoint Medical CenterComment on above:Performed By: #### ERTPF, CONNER, LIP, LIVP, TEGCR ####[address] [phone] TEG 2.0 %Normal0.0-15.0[facility] CenterComment on above:Performed By: #### ERTPF, CONNER, LIP, LIVP, TEGCR ####[facility] [address]yrzcm[address]ib[address] [place] [address] Heparin Therapy:NoneNormalMerScripps Mercy HospitalComment on above:Performed By: #### ERTPF, CONNER, LIP, LIVP, TEGCR ####Fil[facility]a [address]ibmj[address] [place] [address] K (Kinetics) rTEG0.8 minLow1.0-2.0[facility] CenterComment on above:Performed By: #### ERTPF, CONNER, LIP, LIVP, TEGCR ####Filomena [address]bi[address]alv[address] [place] [phone] (Lysis) TEG2.0 %Normal0-8[facility] CenterComment on above:Performed By: #### ERTPF, CONNER, LIP, LIVP, TEGCR ####Sarithaernie [address] [address] MA Rapid TEG 81.9 ivJuks24-88IlrxbUniversity Hospitals Tripoint Medical CenterComment on above:Performed By: #### ERTPF, CONNER, LIP, LIVP, TEGCR ####[facility]a [address] [place] [address] R(Reaction Time)rTEG0.4 minNormal0.0-1.0[facility] CenterComment on above:Performed By: #### ERTPF, CONNER, LIP, LIVP, TEGCR ####[facility] Chdqeuyevlvp[address] [place] [address] TEG CommentACT is the only FDA approved component of the Rapid TEG.NormalUniversity Hospitals Tripoint Medical CenterComment on above:Performed By: #### ERTPF, CONNER, LIP, LIVP, TEGCR ####[facility] [address] [place] [address] Type + Screen on 60-66-9265Caqp + ScreenSample Expiration 02/08/2018 Arm Band Number [id number] ABO/Rh(D) A POSITIVE Antibody Screen NEGATIVE Unit Number [id number] Blood Component Type Leukocyte Reduced Red Cell Unit Division 00 Status of Unit TRANSFUSED Transfusion Status OK TO TRANSFUSE Crossmatch Result COMPATIBLE Unit Number [id number] Blood Component Type Leukocyte Reduced Red Cell Unit Division 00 Status of Unit TRANSFUSED Transfusion Status OK TO TRANSFUSE Crossmatch Result COMPATIBLENoalUniversity Hospitals Tripoint Medical CenterComment on above:Performed By: #### ERTPF, CONNER, LIP, LIVP, TEGCR ####[facility] Wnqbxcsbddfm7201 [place], [place] [phone] XR CHEST PORTABLEon 23-99-0240UQ CHEST PORTABLEEXAMINATION:SINGLE XRAY VIEW OF THE CHEST02/05/2018 [...] pulmonary edemasuspected.Interpreted by:NADEGE Mcarthurigned by:Jack Jones MD02/05/18Final resultNormalMerScripps Mercy HospitalAmmoniaon 02-04-2018 Ammonia mass conc (P)40 umol/XGoqbto52-99GjzuwUniversity Hospitals Tripoint Medical CenterComment on above:Performed By: #### ERTPF, CONNER, LIP, LIVP, TEGCR ####[facility] Ylqqmghnbsen5021 [place] [address] Basic Metabolic Profon 70-37-6887IFB/CRE RatioNOT REPORTEDNormal9-20[facility] Comment on above:Performed By: #### ERTPF, CONNER, LIP, LIVP, TEGCR ####[facility] Eruwfyrlphgd3728 [place], [place] [phone]:NOT REPORTED [facility] CenterComment on above:Performed By: #### ERTPF, CONNER, LIP, LIVP, TEGCR ####Filomena [address] [place] [phone] (cont.)NormalUniversity Hospitals Tripoint Medical CenterComment on above: Result Comment: Average GFR for 50-59 years old: 93 mL/min/1.73sq mChronic Kidney Disease: <60 mL/min/1.73sq mKidney failure: <15 mL/min/1.73sq meGFR calculated using average adult body mass. Additional eGFR calculator available at:http://www.raksul/multiple_crcl_2012.htmPerformed By: #### ERTPF, CONNER, LIP, LIVP, TEGCR ####[place] [address] [phone] gap 3 molar conc12 mmol/LNormal9-17[facility] CenterComment on above:Performed By: #### ERTPF, CONNER, LIP, LIVP, TEGCR ####[address] [address] Calcium mass conc7.8 mg/dLLow8.6-10.4[facility] CenterComment on above: Performed By: #### ERTPF, CONNER, LIP, LIVP, TEGCR ####[facility] Kjvlmrnzarop7021 [place] [address] Chloride molar mxwx584 mmol/HTxtt42-761 [facility] CenterComment on above:Performed By: #### ERTPF, CONNER, LIP, LIVP, TEGCR ####[facility] Ffwfbimeobcv2793 [place] [address] [phone] molar conc18 mmol/EJcc80-47LwczyUniversity Hospitals Tripoint Medical Center Comment on above:Performed By: #### ERTPF, CONNER, LIP, LIVP, TEGCR ####[facility] Hsexlchzotwc3614 [place] [address] Creatinine mass conc3.52 mg/dLHigh0.70-1.20[facility] CenterComment on above:Performed By: #### ERTPF, CONNER, LIP, LIVP, TEGCR ####[facility] [address] [place] [address] GFR, Amer22 mL/minLow>60[facility] CenterComment on above:Performed By: #### ERTPF, CONNER, LIP, LIVP, TEGCR ####[facility] [address] [place] [address] GFR,non Amer18 mL/minLow>60[facility] CenterComment on above: Performed By: #### ERTPF, CONNER, LIP, LIVP, TEGCR ####[facility] [address]pebe[address]zy[address] [place] [address] Glucose mass mupg575 mg/yHAmzn78-19SsxxkLos Alamitos Medical CenterComment on above:Performed By: #### ERTPF, CONNER, LIP, LIVP, TEGCR ####[address] [address] Potassium molar conc4.4 mmol/LNormal3.7-5.3[facility] Comment on above:Performed By: #### ERTPF, CONNER, LIP, LIVP, TEGCR ####[facility] [address]rmb[address] [place] [address] Sodium molar kkud281 mmol/RJgji333-881GyspvUniversity Hospitals Tripoint Medical CenterComment on above:Performed By: #### ERTPF, CONNER, LIP, LIVP, TEGCR ####[facility] [address]vr[address] [place] [address] Urea nitrogen mass conc64 mg/dLHigh6-20[facility] CenterComment on above:Performed By: #### ERTPF, CONNER, LIP, LIVP, TEGCR ####[address] [place] [address] BUN/CRE Ratio NOT REPORTEDNormal9-20[facility] CenterComment on above:Performed By: #### ERTPF, CONNER, LIP, LIVP, TEGCR ####[address] [place] [address] Staging:NOT REPORTEDNormalUniversity Hospitals Tripoint Medical CenterComment on above:Performed By: #### ERTPF, CONNER, LIP, LIVP, TEGCR ####[address] [address] (cont.)Normal [facility] Medical CenterComment on above:Result Comment: Average GFR for 50-59 years old: 93 mL/min/1.73sq mChronic Kidney Disease: <60 mL/min/1.73sq mKidney failure: <15 mL/min/1.73sq meGFR calculated using average adult body mass. Additional eGFR calculator available at:http://www.raksul/multiple_crcl_2012.htmPerformed By: #### ERTPF, CONNER, LIP, LIVP, TEGCR ####[address] [place] [address] Anion gap 3 molar conc13 mmol/LNormal9-17[facility] CenterComment on above:Performed By: #### ERTPF, CONNER, LIP, LIVP, TEGCR ####[address] [place] [address] Calcium mass conc7.5 mg/dLLow8.6-10.4[facility] Medical CenterComment on above: Performed By: #### ERTPF, CONNER, LIP, LIVP, TEGCR ####[address] [place] [address] Chloride molar xjxk283 mmol/ZLqet92-176 [facility] CenterComment on above:Performed By: #### ERTPF, CONNER, LIP, LIVP, TEGCR ####[address] [place] [address] SM8 molar conc19 mmol/WIqi59-84MpyicUniversity Hospitals Tripoint Medical Center Comment on above:Performed By: #### ERTPF, CONNER, LIP, LIVP, TEGCR ####[facility] [address] [place] [address] Creatinine mass conc3.36 mg/dLHigh0.70-1.20[facility] Medical CenterComment on above:Performed By: #### ERTPF, CONNER, LIP, LIVP, TEGCR ####[address] [address] GFR, Amer23 mL/minLow>60[facility] Medical CenterComment on above:Performed By: #### ERTPF, CONNER, LIP, LIVP, TEGCR ####[address] [address] GFR,non Amer19 mL/minLow>60[facility] CenterComment on above: Performed By: #### ERTPF, CONNER, LIP, LIVP, TEGCR ####[address] [address] Glucose mass fhkq569 mg/lTKhxx99-72BcdpkLos Alamitos Medical CenterComment on above:Performed By: #### ERTPF, CONNER, LIP, LIVP, TEGCR ####[address] [address] Potassium molar conc4.4 mmol/LNormal3.7-5.3MLos Alamitos Medical Center Comment on above:Performed By: #### ERTPF, CONNER, LIP, LIVP, TEGCR ####[address] [phone] molar lclw632 mmol/FIixs012-567YgrsmUniversity Hospitals Tripoint Medical CenterComment on above:Performed By: #### ERTPF, CONNER, LIP, LIVP, TEGCR ####Sar[address]owpdxa1894 [place] [address] Urea nitrogen mass conc61 mg/dLHigh6-20[facility] CenterComment on above:Performed By: #### ERTPF, CONNER, LIP, LIVP, TEGCR ####[facility] [address]rctbwa[address]72 [place] [address] BUN/CRE Ratio NOT REPORTEDNoerlanger western carolina hospital9-20[facility] CenterComment on above:Performed By: #### ERTPF, CONNER, LIP, LIVP, TEGCR ####[address] [address] Staging:NOT REPORTEDNormalUniversity Hospitals Tripoint Medical CenterComment on above:Performed By: #### ERTPF, CONNER, LIP, LIVP, TEGCR ####[facility] [address] [place] [address] (cont.)Normal [facility] Medical CenterComment on above:Result Comment: Average GFR for 50-59 years old: 93 mL/min/1.73sq mChronic Kidney Disease: <60 mL/min/1.73sq mKidney failure: <15 mL/min/1.73sq meGFR calculated using average adult body mass. Additional eGFR calculator available at:http://www.NetShoes.com/multiple_crcl_2012.htmPerformed By: #### ERTPF, CONNER, LIP, LIVP, TEGCR ####Saritha [address] [place] [address] [phone] gap 3 molar conc15 mmol/LNormal9-17[facility] CenterComment on above:Performed By: #### ERTPF, CONNER, LIP, LIVP, TEGCR ####[facility] [address]fr[address]se[address] [place] [address] Calcium mass conc7.5 mg/dLLow8.6-10.4[facility] Medical CenterComment on above: Performed By: #### ERTPF, CONNER, LIP, LIVP, TEGCR ####[facility] V[address]uvwfmncut[address]60 [place] [address] Chloride molar eqne662 mmol/ODtjq19-249 [facility] CenterComment on above:Performed By: #### ERTPF, CONNER, LIP, LIVP, TEGCR ####[address] [place] [address] JQ3 molar conc17 mmol/WCql33-41KpcixUniversity Hospitals Tripoint Medical Center Comment on above:Performed By: #### ERTPF, CONNER, LIP, LIVP, TEGCR ####[address] [address] Creatinine mass conc3.20 mg/dLHigh0.70-1.20[facility] CenterComment on above:Performed By: #### ERTPF, CONNER, LIP, LIVP, TEGCR ####[address] [place] [address] GFR, Amer24 mL/minLow>60[facility] Medical CenterComment on above:Performed By: #### ERTPF, CONNER, LIP, LIVP, TEGCR ####[facility] Ezrbkmgdutbh0924 [place] [address] GFR,non Amer20 mL/minLow>60[facility] CenterComment on above: Performed By: #### ERTPF, CONNER, LIP, LIVP, TEGCR ####[address] [place] [address] Glucose mass helk890 mg/eUAywm02-14Bkelx [facility] Medical CenterComment on above:Performed By: #### ERTPF, CONNER, LIP, LIVP, TEGCR ####[address] [address] Potassium molar conc4.4 mmol/LNormal3.7-5.3[facility] Comment on above:Performed By: #### ERTPF, CONNER, LIP, LIVP, TEGCR ####[address] [address] Sodium molar qqry155 mmol/OCfbq285-490SvgqyUniversity Hospitals Tripoint Medical CenterComment on above:Performed By: #### ERTPF, CONNER, LIP, LIVP, TEGCR ####[address] [address] Urea nitrogen mass conc57 mg/dLHigh6-20[facility] CenterComment on above:Performed By: #### ERTPF, CONNER, LIP, LIVP, TEGCR ####[address] [phone]/CRE Ratio NOT REPORTEDNormal9-20[facility] Medical CenterComment on above:Performed By: #### ERTPF, CONNER, LIP, LIVP, TEGCR ####[address] [address] Staging:NOT REPORTEDNormalUniversity Hospitals Tripoint Medical CenterComment on above:Performed By: #### ERTPF, CONNER, LIP, LIVP, TEGCR ####[address] [address] CBCon 36-79-1396Tiudlkcemfp distribution width Auto Ratio (RBC)18.7 %High11.8-14.4 [facility] Medical CenterComment on above:Performed By: #### ERTPF, CONNER, LIP, LIVP, TEGCR ####[address] [address] Hematocrit Auto Volume Fraction (Bld)24.4 %Low40.7-50.3[facility]y [facility] Medical CenterComment on above:Performed By: #### ERTPF, CONNER, LIP, LIVP, TEGCR ####[place] [address] Hemoglobin mass conc (Bld)7.0 g/dLCritically low13.0-17.0[facility] CenterComment on above:Performed By: #### ERTPF, CONNER, LIP, LIVP, TEGCR ####[place] [address] MCH Auto Entitic mass (RBC)30.3 hdDsyznn51.2-33.5[facility] Medical CenterComment on above:Performed By: #### ERTPF, CONNER, LIP, LIVP, TEGCR ####[place] [address] MCHC Auto mass conc (RBC)28.7 g/eCNxgneb16.4-34.8[facility] Medical CenterComment on above: Performed By: #### ERTPF, CONNER, LIP, LIVP, TEGCR ####[address] [address] MCV Auto Entitic volume (RBC)105.6 fLHigh 82.6-102.9[facility] Medical CenterComment on above:Performed By: #### ERTPF, CONNER, LIP, LIVP, TEGCR ####[place] [address] NRBC Automated2.0 per 100 WBCHigh0.0[facility] Medical CenterComment on above:Performed By: #### ERTPF, CONNER, LIP, LIVP, TEGCR ####[place] [address] Platelet mean volume Auto Entitic volume (Bld)12.0 fLNormal8.1-13.5[facility] Comment on above:Performed By: #### ERTPF, CONNER, LIP, LIVP, TEGCR ####[facility] [address] [place] [phone] Auto #/vol (Bld)433 10*3/rJJcopzr138-324SilbuUniversity Hospitals Tripoint Medical CenterComment on above: Performed By: #### ERTPF, CONNER, LIP, LIVP, TEGCR ####[address] [address] RBC Auto #/vol (Bld)2.31 10*6/uLLow 4.21-5.77[facility] CenterComment on above:Performed By: #### ERTPF, CONNER, LIP, LIVP, TEGCR ####[address] [address] WBC Auto #/vol (Bld)31.9 10*3/uLCritically high3.5-11.3MLos Alamitos Medical CenterComment on above:Performed By: #### ERTPF, CONNER, LIP, LIVP, TEGCR ####[address] [address] Creatinine,Random Uron 32-24-6173Rbyvwasirk mass conc50.3 mg/fYMxdgaq99.0-259.0 [facility] CenterComment on above:Performed By: #### ERTPF, CONNER, LIP, LIVP, TEGCR ####[address] [address] Cult,Aerobe/Anaerobeon [id number],Aerobe/AnaerobeSpecimen Description .ABDOMEN .DRAINAGE SWABSpecial Requests NOT REPORTEDDirect Exam MANY NEUTROPHILS NO BACTERIA SEEN Culture NO GROWTH 5 DAYSReport Status FINAL 02/04/2018NormalUniversity Hospitals Tripoint Medical CenterComment on above:Performed By: #### ERTPF, CONNER, LIP, LIVP, TEGCR ####[facility] [address]pfkwbp[address] [place] [address] Lactate, Sepsison 03-77-9435Mvkjut Acid,Sep Wbld1.1 mmol/L Normal0.5-1.9[facility] CenterComment on above:Performed By: #### ERTPF, CONNER, LIP, LIVP, TEGCR ####[facility] [address]neauwp[address] [place] [address] Lactic Acid, SepsisNOT REPORTEDNormal0.5-1.9[facility] CenterComment on above:Performed By: #### ERTPF, CONNER, LIP, LIVP, TEGCR ####[facility] [address]sl[address] [place] [address] Liver Profile on 39-37-4456Sypqgrf mass conc1.9 g/dLLow3.5-5.2MLos Alamitos Medical Center Comment on above:Performed By: #### ERTPF, CONNER, LIP, LIVP, TEGCR ####[facility] [address]helt[address] [place] [address] Albumin/Globulin mass ratio0.5 {ratio}Low1.0-2.5[facility] Medical CenterComment on above: Performed By: #### ERTPF, CONNER, LIP, LIVP, TEGCR ####[facility] [address]wensfpymb3573 [place] [address] Alkaline Phos80 U/CUxogab16-455EeerdUniversity Hospitals Tripoint Medical CenterComment on above:Performed By: #### ERTPF, CONNER, LIP, LIVP, TEGCR ####[facility] Yinmfbervebl1842 [place] [address] ALT enzyme act/vol15 U/LNormal5-41[facility] CenterComment on above: Performed By: #### ERTPF, CONNER, LIP, LIVP, TEGCR ####[facility] [address]znu[address] [place] [phone] enzyme act/vol39 U/LNormal<40[facility] CenterComment on above:Performed By: #### ERTPF, CONNER, LIP, LIVP, TEGCR ####[address] [place] [address] Bilirubin Ql (U)0.46 mg/dLNormal0.3-1.2MLos Alamitos Medical CenterComment on above:Performed By: #### ERTPF, CONNER, LIP, LIVP, TEGCR ####[address] [address] Bilirubin, Indirect0.18 mg/dLNormal0.00-1.00[facility] CenterComment on above:Performed By: #### ERTPF, CONNER, LIP, LIVP, TEGCR ####[address] [address] Bilirubin.direct mass conc0.28 mg/dLNormal<0.31 [facility] Medical CenterComment on above:Performed By: #### ERTPF, CONNER, LIP, LIVP, TEGCR ####[address] [place] [address] Protein mass conc6.1 g/dLLow6.4-8.3MLos Alamitos Medical CenterComment on above:Performed By: #### ERTPF, CONNER, LIP, LIVP, TEGCR ####[facility] [address]yskj[address]44 [place] [address] Globulin Calculated mass conc (S)NOT REPORTEDNormal1.5-3.8[facility] CenterComment on above:Performed By: #### ERTPF, CONNER, LIP, LIVP, TEGCR ####[address] [address] Osmolalityon 02-04-2018 Rknfiorqwu873 mOsm/kgCritically jtqa176-531OymjcUniversity Hospitals Tripoint Medical Center Comment on above:Performed By: #### ERTPF, CONNER, LIP, LIVP, TEGCR ####[address]ith[address]qeycs[address] [place], [place] [phone], Urineon 40-22-4188Urrjcebmoy - Ojuav450 mOsm/cvVvflfx79-2594OmzqhUniversity Hospitals Tripoint Medical CenterComment on above:Performed By: #### ERTPF, CONNER, LIP, LIVP, TEGCR ####[address]pwkr[address]666 [place] [address] Sodium, Random Uron 33-02-0146Ku Conc. Urine26 mmol/LNormalUniversity Hospitals Tripoint Medical CenterComment on above:Result Comment: No normal range established.Performed By: #### ERTPF, CONNER, LIP, LIVP, TEGCR ####Filomena [address]hsgebfti[address] [place] [address] [phone] Metabolic Profon 02-03-2018(cont.)NormalUniversity Hospitals Tripoint Medical CenterComment on above:Result Comment: Average GFR for 50-59 years old: 93 mL/min/1.73sq mChronic Kidney Disease: <60 mL/min/1.73sq mKidney failure: <15 mL/min/1.73sq meGFR calculated using average adult body mass. Additional eGFR calculator available at:http://www.NetShoes.StylePuzzle/multiple_crcl_2012.htmPerformed By: #### ERTPF, CONNER, LIP, LIVP, TEGCR ####[facility] [address]iz[address]guimrw[address] [place], [place] [phone] gap 3 molar conc5 mmol/LLow9-17[facility] CenterComment on above:Performed By: #### ERTPF, CONNER, LIP, LIVP, TEGCR ####[facility] [address]kxxglfbwpqo6082 [place] [address] Calcium mass conc7.4 mg/dLLow8.6-10.4[facility] CenterComment on above: Performed By: #### ERTPF, CONNER, LIP, LIVP, TEGCR ####[address] [address] Chloride molar hjjs688 mmol/LJpts02-336 [facility] CenterComment on above:Performed By: #### ERTPF, CONNER, LIP, LIVP, TEGCR ####[address] [address] YS4 molar conc20 mmol/AYyvyey79-85RyiekUniversity Hospitals Tripoint Medical Center Comment on above:Performed By: #### ERTPF, CONNER, LIP, LIVP, TEGCR ####[address] [address] Creatinine mass conc1.94 mg/dLHigh0.70-1.20[facility] CenterComment on above:Performed By: #### ERTPF, CONNER, LIP, LIVP, TEGCR ####[address] [address] GFR, Amer43 mL/minLow>60[facility] CenterComment on above:Performed By: #### ERTPF, CONNER, LIP, LIVP, TEGCR ####[address] [address] GFR,non Amer36 mL/minLow>60[facility] CenterComment on above: Performed By: #### ERTPF, CONNER, LIP, LIVP, TEGCR ####[address] [address] Glucose mass punv301 mg/mXOarx88-30YiqqgLos Alamitos Medical CenterComment on above:Performed By: #### ERTPF, CONNER, LIP, LIVP, TEGCR ####[address] [address] Potassium molar conc4.1 mmol/LNormal3.7-5.3[facility] Comment on above:Performed By: #### ERTPF, CONNER, LIP, LIVP, TEGCR ####[facility] Logxwghxamdz3791 [place] [address] Sodium molar untj672 mmol/EPpex465-120WsffvUniversity Hospitals Tripoint Medical CenterComment on above:Performed By: #### ERTPF, CONNER, LIP, LIVP, TEGCR ####[facility] Ctyktnlmeboe[address] [place] [address] Urea nitrogen mass conc34 mg/dLHigh6-20[facility] CenterComment on above:Performed By: #### ERTPF, CONNER, LIP, LIVP, TEGCR ####[address] [place] [address] BUN/CRE Ratio NOT REPORTEDNormal920[facility] CenterComment on above:Performed By: #### ERTPF, CONNER, LIP, LIVP, TEGCR ####[facility] Vkjmbsttcomd5057 [place] [address] Staging:NOT REPORTEDNormalUniversity Hospitals Tripoint Medical CenterComment on above:Performed By: #### ERTPF, CONNER, LIP, LIVP, TEGCR ####[facility] [address] [place] [phone] (cont.)Normal [facility] CenterComment on above:Result Comment: Average GFR for 50-59 years old: 93 mL/min/1.73sq mChronic Kidney Disease: <60 mL/min/1.73sq mKidney failure: <15 mL/min/1.73sq meGFR calculated using average adult body mass. Additional eGFR calculator available at:http://www.NetShoes.StylePuzzle/multiple_crcl_2012.htmPerformed By: #### ERTPF, CONNER, LIP, LIVP, TEGCR ####[facility] [address]glih[address]oiadu[address] [place] [address] Anion gap 3 molar conc14 mmol/LNormal9-17[facility] CenterComment on above:Performed By: #### ERTPF, CONNER, LIP, LIVP, TEGCR ####[facility] Lerhccpvyxyu7319 [place] [address] Calcium mass conc7.7 mg/dLLow8.6-10.4[facility] CenterComment on above: Performed By: #### ERTPF, CONNER, LIP, LIVP, TEGCR ####[facility] Ebuggbjracdo[address]95 [place] [address] Chloride molar lipa719 mmol/IMolw05-377 [facility] CenterComment on above:Performed By: #### ERTPF, CONNER, LIP, LIVP, TEGCR ####[facility] E[address]ajkzusflj[address] [place] [address] UE9 molar conc20 mmol/VYaywpq08-22KesadUniversity Hospitals Tripoint Medical Center Comment on above:Performed By: #### ERTPF, CONNER, LIP, LIVP, TEGCR ####[facility] Ddlckoorcqus1192 [place] [address] Creatinine mass conc1.72 mg/dLHigh0.70-1.20[facility] CenterComment on above:Performed By: #### ERTPF, CONNER, LIP, LIVP, TEGCR ####[facility] Tz[address]fgzqgyytj[address]642 [place] [address] GFR, Amer50 mL/minLow>60[facility] CenterComment on above:Performed By: #### ERTPF, CONNER, LIP, LIVP, TEGCR ####[facility] Uprtrdmehnrr6082 [place] [address] GFR,non Amer41 mL/minLow>60[facility] CenterComment on above: Performed By: #### ERTPF, CONNER, LIP, LIVP, TEGCR ####[facility] Eqzqzgxkjpij8568 [place] [address] Glucose mass iitq100 mg/yUVekb21-01Xsmip [facility] Medical CenterComment on above:Performed By: #### ERTPF, CONNER, LIP, LIVP, TEGCR ####[facility] Jiwwkyravkgz7686 [place] [address] Potassium molar conc4.5 mmol/LNormal3.7-5.3[facility] Comment on above:Performed By: #### ERTPF, CONNER, LIP, LIVP, TEGCR ####[facility] [address]ts[address] [place] [address] Sodium molar bykk798 mmol/SByqr951-581EjyntUniversity Hospitals Tripoint Medical CenterComment on above:Performed By: #### ERTPF, CONNER, LIP, LIVP, TEGCR ####[facility] [address]tr[address] [place] [address] Urea nitrogen mass conc30 mg/dLHigh6-20[facility] CenterComment on above:Performed By: #### ERTPF, CONNER, LIP, LIVP, TEGCR ####[facility] Hfzvohwgoryw1367 [place] [address] BUN/CRE Ratio NOT REPORTEDNormal9-20[facility] CenterComment on above:Performed By: #### ERTPF, CONNER, LIP, LIVP, TEGCR ####[facility] Lhcpegydwbpr9822 [place] [address] Staging:NOT REPORTEDNormalUniversity Hospitals Tripoint Medical CenterComment on above:Performed By: #### ERTPF, CONNER, LIP, LIVP, TEGCR ####[facility] [address]qrfigos[address]89 [place] [address] CBCon 72-87-6446Dddcxvwftnq distribution width Auto Ratio (RBC)18.5 %High11.8-14.4 [facility] CenterComment on above:Performed By: #### ERTPF, CONNER, LIP, LIVP, TEGCR ####[address] [place] [address] [phone] Auto Volume Fraction (Bld)27.9 %Low40.7-50.3MLos Alamitos Medical CenterComment on above:Performed By: #### ERTPF, CONNER, LIP, LIVP, TEGCR ####[facility] [address]zapyezddqc[address] [place] [address] Hemoglobin mass conc (Bld)7.6 g/dLLow13.0-17.0[facility] Comment on above:Performed By: #### ERTPF, CONNER, LIP, LIVP, TEGCR ####[address] [address] MCH Auto Entitic mass (RBC)30.3 saTxfnul85.2-33.5[facility] CenterComment on above: Performed By: #### ERTPF, CONNER, LIP, LIVP, TEGCR ####[facility] [place] [address] MCHC Auto mass conc (RBC)27.2 g/dLLow 28.4-34.8[facility] CenterComment on above:Performed By: #### ERTPF, CONNER, LIP, LIVP, TEGCR ####[facility] I[address]uchrjbxggz5232 [place] [address] MCV Auto Entitic volume (RBC)111.2 iKRrtn12.6-102.9[facility] CenterComment on above:Performed By: #### ERTPF, CONNER, LIP, LIVP, TEGCR ####[facility] [place] [address] NRBC Automated1.0 per 100 WBCHigh0.0[facility] CenterComment on above: Performed By: #### ERTPF, CONNER, LIP, LIVP, TEGCR ####Filomena [address] [place] [address] Platelet mean volume Auto Entitic volume (Bld)11.3 fLNormal8.1-13.5[facility] CenterComment on above: Performed By: #### ERTPF, CONNER, LIP, LIVP, TEGCR ####[place] [address] Platelets Auto #/vol (Bld)533 10*3/uLHigh 138-453[facility] CenterComment on above:Performed By: #### ERTPF, CONNER, LIP, LIVP, TEGCR ####[place] [address] RBC Auto #/vol (Bld)2.51 10*6/uLLow4.21-5.77[facility] CenterComment on above:Performed By: #### ERTPF, CONNER, LIP, LIVP, TEGCR ####[place] [address] WBC Auto #/vol (Bld)33.5 10*3/uLCritically high3.5-11.3MercWoodland Memorial HospitalComment on above:Performed By: #### ERTPF, CONNER, LIP, LIVP, TEGCR ####[place] [id number] Erythrocyte distribution width Auto Ratio (RBC)18.2 %High11.8-14.4[facility] Comment on above:Performed By: #### ERTPF, CONNER, LIP, LIVP, TEGCR ####[facility] [address] [address] Hematocrit Auto Volume Fraction (Bld)29.0 %Low40.7-50.3[facility] Medical CenterComment on above:Performed By: #### ERTPF, CONNER, LIP, LIVP, TEGCR ####[facility] [address] [place] [address] Hemoglobin mass conc (Bld)8.1 g/dLLow 13.0-17.0[facility] CenterComment on above:Performed By: #### ERTPF, CONNER, LIP, LIVP, TEGCR ####[place] [address] MCH Auto Entitic mass (RBC)30.5 zbJetkus68.2-33.5[facility] CenterComment on above:Performed By: #### ERTPF, CONNER, LIP, LIVP, TEGCR ####[place] [address] MCHC Auto mass conc (RBC)27.9 g/dLLow28.4-34.8[facility] CenterComment on above:Performed By: #### ERTPF, CONNER, LIP, LIVP, TEGCR ####[place] [address] MCV Auto Entitic volume (RBC)109.0 zRRwrs96.6-102.9[facility] CenterComment on above: Performed By: #### ERTPF, CONNER, LIP, LIVP, TEGCR ####[place] [address] NRBC Automated1.6 per 100 WBCHigh0.0[facility] CenterComment on above:Performed By: #### ERTPF, CONNER, LIP, LIVP, TEGCR ####[place] [address] Platelet mean volume Auto Entitic volume (Bld)11.1 fLNormal8.1-13.5[facility] CenterComment on above:Performed By: #### ERTPF, CONNER, LIP, LIVP, TEGCR ####[facility] [address]jwennpsrw[address]19 [place] [address] Platelets Auto #/vol (Bld)576 10*3/mCRuhs963-761GdabfUniversity Hospitals Tripoint Medical Center Comment on above:Performed By: #### ERTPF, CONNER, LIP, LIVP, TEGCR ####[address] [phone] Auto #/vol (Bld)2.66 10*6/uLLow4.21-5.77[facility] CenterComment on above:Performed By: #### ERTPF, CONNER, LIP, LIVP, TEGCR ####[address] [address] WBC Auto #/vol (Bld)30.0 10*3/uLHigh3.5-11.3 [facility] CenterComment on above:Performed By: #### ERTPF, CONNER, LIP, LIVP, TEGCR ####[address] [address] Cult,Bloodon [id number],BloodSpecimen Description .BLOOD Special Requests RT FOREARM 6 ML Culture NO GROWTH 6 DAYS Report Status FINAL 02/03/2018[facility] CenterComment on above:Performed By: #### ERTPF, CONNER, LIP, LIVP, TEGCR ####[address] [address] Cult,BloodSpecimen Description .BLOOD Special Requests 1ML RT HAND Culture NO GROWTH 6 DAYS Report Status FINAL 02/03/2018[facility] CenterComment on above:Performed By: #### ERTPF, CONNER, LIP, LIVP, TEGCR ####[address] [address] Lactic Acid,Whole Blon 26-57-0350Vgricn Acid,Whole Bl2.0 mmol/LNormal0.7-2.1[facility] CenterComment on above:Performed By: #### ERTPF, CONNER, LIP, LIVP, TEGCR ####[facility] [address]uyfpjpxpk[address] [place] [address] Magnesiumon 59-98-1415Zowdzxmrx mass conc2.1 mg/dLNormal1.6-2.6MLos Alamitos Medical CenterComment on above: Performed By: #### ERTPF, CONNER, LIP, LIVP, TEGCR ####[address] [address] Magnesium mass conc2.4 mg/dLNormal1.6-2.6 [facility] CenterComment on above:Performed By: #### ERTPF, CONNER, LIP, LIVP, TEGCR ####[address] [address] NA (Sodium)on 29-22-4716Ojcjac molar wgfi067 mmol/EQuvz678-776 [facility] CenterComment on above:Performed By: #### ERTPF, CONNER, LIP, LIVP, TEGCR ####[address] [place] [address] Sodium molar fkdk943 mmol/LGels943-767XrvydUniversity Hospitals Tripoint Medical CenterComment on above:Performed By: #### ERTPF, CONNER, LIP, LIVP, TEGCR ####[facility] [address]we[address] [place] [address] Phosphorus, Inorg.on 03-81-3398Oigemjqnui, Inorg.2.0 mg/dLLow2.5-4.5[facility] Comment on above:Performed By: #### ERTPF, CONNER, LIP, LIVP, TEGCR ####[address] [address] Phosphorus, Inorg.3.2 mg/dLNormal2.5-4.5[facility] Medical CenterComment on above:Performed By: #### ERTPF, CONNER, LIP, LIVP, TEGCR ####[address] [place] [address] XR CHEST PORTABLEon 99-61-9216GP CHEST PORTABLE EXAMINATION:SINGLE XRAY VIEW OF THE [...] and lines.Interpreted by:NADEGE Romeroigned by:Ramakrishna Santana MD02/03/18Final resultNormalUniversity Hospitals Tripoint Medical Center Basic Metabolic Profon 02-02-2018(cont.)NormalUniversity Hospitals Tripoint Medical Center Comment on above:Result Comment: Average GFR for 50-59 years old: 93 mL/min/1.73sq mChronic Kidney Disease: <60 mL/min/1.73sq mKidney failure: <15 mL/min/1.73sq meGFR calculated using average adult body mass. Additional eGFR calculator available at:http://www.NetShoes.com/multiple_crcl_2012.htmPerformed By: #### ERTPF, CONNER, LIP, LIVP, TEGCR ####[address]mzs[address] [place] [address] Anion gap 3 molar conc14 mmol/LNormal9-17[facility] CenterComment on above:Performed By: #### ERTPF, CONNER, LIP, LIVP, TEGCR ####[facility] [address] [place] [address] Calcium mass conc7.6 mg/dLLow8.6-10.4[facility] Medical CenterComment on above:Performed By: #### ERTPF, CONNER, LIP, LIVP, TEGCR ####[address] [place] [address] Chloride molar rixf398 mmol/GIgcw99-601 [facility] Medical CenterComment on above:Performed By: #### ERTPF, CONNER, LIP, LIVP, TEGCR ####[address] [address] AC4 molar conc20 mmol/TOqbzsj58-46ArueeUniversity Hospitals Tripoint Medical Center Comment on above:Performed By: #### ERTPF, CONNER, LIP, LIVP, TEGCR ####[address] [address] Creatinine mass conc1.57 mg/dLHigh0.70-1.20[facility] CenterComment on above:Performed By: #### ERTPF, CONNER, LIP, LIVP, TEGCR ####[address] [address] GFR, Amer55 mL/minLow>60[facility] Medical CenterComment on above:Performed By: #### ERTPF, CONNER, LIP, LIVP, TEGCR ####[address] [address] GFR,non Amer46 mL/minLow>60[facility] Medical CenterComment on above: Performed By: #### ERTPF, CONNER, LIP, LIVP, TEGCR ####[address] [place] [address] Glucose mass wbth987 mg/zZDhnd23-21XjvapWoodland Memorial HospitalComment on above:Performed By: #### ERTPF, CONNER, LIP, LIVP, TEGCR ####[address] [place] [address] Potassium molar conc3.8 mmol/LNormal3.7-5.3[facility] Comment on above:Performed By: #### ERTPF, CONNER, LIP, LIVP, TEGCR ####[address] [address] Sodium molar lnii123 mmol/GRzlm461-926CvxckUniversity Hospitals Tripoint Medical CenterComment on above:Performed By: #### ERTPF, CONNER, LIP, LIVP, TEGCR ####[address] [address] Urea nitrogen mass conc30 mg/dLHigh6-20[facility] CenterComment on above:Performed By: #### ERTPF, CONNER, LIP, LIVP, TEGCR ####[address] [address] BUN/CRE Ratio NOT REPORTEDNoal9-20[facility] CenterComment on above:Performed By: #### ERTPF, CONNER, LIP, LIVP, TEGCR ####[address] [address] Staging:NOT REPORTEDNormalUniversity Hospitals Tripoint Medical CenterComment on above:Performed By: #### ERTPF, CONNER, LIP, LIVP, TEGCR ####[address] [address] CBCon 47-99-7355Efjcspzevfw distribution width Auto Ratio (RBC)18.4 %High11.8-14.4 [facility] CenterComment on above:Performed By: #### ERTPF, CONNER, LIP, LIVP, TEGCR ####[address] [address] Hematocrit Auto Volume Fraction (Bld)29.2 %Low40.7-50.3[facility] Medical CenterComment on above:Performed By: #### ERTPF, CONNER, LIP, LIVP, TEGCR ####[facility] [address] [place] [address] Hemoglobin mass conc (Bld)8.3 g/dLLow13.0-17.0[facility] Comment on above:Performed By: #### ERTPF, CONNER, LIP, LIVP, TEGCR ####[facility] [address] [place] [address] MCH Auto Entitic mass (RBC)30.1 yaDkrezi16.2-33.5[facility] CenterComment on above: Performed By: #### ERTPF, CONNER, LIP, LIVP, TEGCR ####[facility] [address] [place] [address] MCHC Auto mass conc (RBC)28.4 g/dLNormal 28.4-34.8[facility] CenterComment on above:Performed By: #### ERTPF, CONNER, LIP, LIVP, TEGCR ####[facility] [address] [place] [address] MCV Auto Entitic volume (RBC)105.8 eGFyjt20.6-102.9[facility] Medical CenterComment on above:Performed By: #### ERTPF, CONNER, LIP, LIVP, TEGCR ####[facility] Hm[address]yqnamvyh[address] [place], [place] [phone] Automated1.1 per 100 WBCHigh0.0[facility] CenterComment on above: Performed By: #### ERTPF, CONNER, LIP, LIVP, TEGCR ####[facility] [address] [place], [place] [phone] mean volume Auto Entitic volume (Bld)11.0 fLNormal8.1-13.5[facility] CenterComment on above: Performed By: #### ERTPF, CONNER, LIP, LIVP, TEGCR ####Filomen[address]jas[address] [place] [address] Platelets Auto #/vol (Bld)675 10*3/uLHigh 138-453[facility] CenterComment on above:Performed By: #### ERTPF, CONNER, LIP, LIVP, TEGCR ####Filomena Rojas[address] [place] [address] RBC Auto #/vol (Bld)2.76 10*6/uLLow4.21-5.77[facility] CenterComment on above:Performed By: #### ERTPF, CONNER, LIP, LIVP, TEGCR ####[address] [address] WBC Auto #/vol (Bld)31.5 10*3/uLCritically high3.5-11.3MLos Alamitos Medical CenterComment on above:Performed By: #### ERTPF, CONNER, LIP, LIVP, TEGCR ####Filomena Rojas[address] [place] [address] Calcium, Ionicon 61-93-5448Jzmxvua mass conc1.11 mmol/LLow1.13-1.33[facility] CenterComment on above:Performed By: #### ERTPF, CONNER, LIP, LIVP, TEGCR ####Filomena [address] [place] [address] Creatinine,Random Uron 16-30-8268Hpwznahwjd mass conc48.7 mg/xWYxefed00.0-259.0[facility] CenterComment on above:Performed By: #### ERTPF, CONNER, LIP, LIVP, TEGCR ####Fli[address]a [address] [place] [address] NA (Sodium)on 10-43-4943Cyyqxf molar vkgf277 mmol/LCritically tzzj394-223CfwnhUniversity Hospitals Tripoint Medical CenterComment on above:Performed By: #### ERTPF, CONNER, LIP, LIVP, TEGCR ####[address] [place] [address] Sodium molar idgn627 mmol/NKjxx151-644EtrmkUniversity Hospitals Tripoint Medical CenterComment on above: Performed By: #### ERTPF, CONNER, LIP, LIVP, TEGCR ####[facility] [address] [place] [address] Sodium molar fgdn427 mmol/SYexg522-486 [facility] CenterComment on above:Performed By: #### ERTPF, CONNER, LIP, LIVP, TEGCR ####[address] [address] Osmolalityon 18-78-8271Yywublmsae748 mOsm/kgCritically jmoo006-519 [facility] CenterComment on above:Result Comment: ADDED ON Performed By: #### ERTPF, CONNER, LIP, LIVP, TEGCR ####[address] [address] Osmolality, Urineon 52-45-4802Bwgqokkkug - Qmydq112 mOsm/pyQnydpl25-8858CqtvfUniversity Hospitals Tripoint Medical CenterComment on above: Performed By: #### ERTPF, CONNER, LIP, LIVP, TEGCR ####[facility] [address]az[address]20 [place] [address] Sodium, Random Uron 60-33-2177Ru Conc. Urine38 mmol/LNormalUniversity Hospitals Tripoint Medical CenterComment on above:Result Comment: No normal range established.Performed By: #### ERTPF, CONNER, LIP, LIVP, TEGCR ####[address] [address] Basic Metabolic Profon 02-01-2018(cont.)NormalUniversity Hospitals Tripoint Medical CenterComment on above:Result Comment: Average GFR for 50-59 years old: 93 mL/min/1.73sq mChronic Kidney Disease: <60 mL/min/1.73sq mKidney failure: <15 mL/min/1.73sq meGFR calculated using average adult body mass. Additional eGFR calculator available at:http://www.raksul/multiple_crcl_2012.htmPerformed By: #### ERTPF, CNONER, LIP, LIVP, TEGCR ####[facility] [address] [place] [address] Anion gap 3 molar conc15 mmol/LNormal9-17[facility] CenterComment on above:Performed By: #### ERTPF, CONNER, LIP, LIVP, TEGCR ####[address] [address] Calcium mass conc7.6 mg/dLLow8.6-10.4[facility] CenterComment on above: Performed By: #### ERTPF, CONNER, LIP, LIVP, TEGCR ####[address] [place] [address] Chloride molar jxxj198 mmol/WTslh74-357 [facility] CenterComment on above:Performed By: #### ERTPF, CONNER, LIP, LIVP, TEGCR ####[facility] Eqsxkeczpuiu[address] [place] [address] HV7 molar conc22 mmol/UZsdydl62-16AqypcUniversity Hospitals Tripoint Medical Center Comment on above:Performed By: #### ERTPF, CONNER, LIP, LIVP, TEGCR ####[address] [place] [address] Creatinine mass conc1.43 mg/dLHigh0.70-1.20[facility] CenterComment on above:Performed By: #### ERTPF, CONNER, LIP, LIVP, TEGCR ####[facility] [address]xbakaqarh[address] [place] [address] GFR, Amer>60Normal>60[facility] CenterComment on above:Performed By: #### ERTPF, CONNER, LIP, LIVP, TEGCR ####[facility] [address]av[address] [place] [address] GFR,non Amer51 mL/minLow>60[facility] CenterComment on above: Performed By: #### ERTPF, CONNER, LIP, LIVP, TEGCR ####[facility] [address]qsp[address]3 [place] [address] Glucose mass nnpa231 mg/mODxir22-84OfbxfLos Alamitos Medical CenterComment on above:Performed By: #### ERTPF, CONNER, LIP, LIVP, TEGCR ####[facility] [address] [place] [address] Potassium molar conc3.8 mmol/LNormal3.7-5.3[facility] Comment on above:Performed By: #### ERTPF, CONNER, LIP, LIVP, TEGCR ####[facility] [address] [place] [address] Sodium molar zdec604 mmol/LKgxf984-419SgdhhUniversity Hospitals Tripoint Medical CenterComment on above:Performed By: #### ERTPF, CONNER, LIP, LIVP, TEGCR ####[facility] [address]jl[address]42 [place] [address] Urea nitrogen mass conc25 mg/dLHigh6-20[facility] CenterComment on above:Performed By: #### ERTPF, CONNER, LIP, LIVP, TEGCR ####[facility] [address]jsllkxz[address]99 [place] [address] BUN/CRE Ratio NOT REPORTEDNormal9-20[facility] CenterComment on above:Performed By: #### ERTPF, CONNER, LIP, LIVP, TEGCR ####[place] [address] Staging:NOT REPORTEDNormalUniversity Hospitals Tripoint Medical CenterComment on above:Performed By: #### ERTPF, CONNER, LIP, LIVP, TEGCR ####[place] [address] CBC with Diff on 11-29-2939Sur. Basophil0.00 k/uLNormal0.0-0.2MLos Alamitos Medical Center Comment on above:Performed By: #### ERTPF, CONNER, LIP, LIVP, TEGCR ####[place] [address] Abs.Imm.Granulocyte0.95 k/uLHigh0.00-0.30[facility] CenterComment on above:Performed By: #### ERTPF, CONNER, LIP, LIVP, TEGCR ####[place] [address] Abs.Neutrophil (Seg)19.43 k/uLHigh1.8-7.7[facility] CenterComment on above:Performed By: #### ERTPF, CONNER, LIP, LIVP, TEGCR ####[place] [address] Basophils/100 WBC Auto (Bld)0 %Normal0-2MLos Alamitos Medical CenterComment on above: Performed By: #### ERTPF, CONNER, LIP, LIVP, TEGCR ####[place] [address] Eosinophils Auto #/vol (Bld)0.24 10*3/uL Normal0.0-0.4[facility] CenterComment on above:Performed By: #### ERTPF, CONNER, LIP, LIVP, TEGCR ####[address] [address] Eosinophils/100 WBC Auto (Bld)1 %Normal1-4[facility] CenterComment on above:Performed By: #### ERTPF, CONNER, LIP, LIVP, TEGCR ####[address] [address] Immature granulocytes #/vol (Bld)4 %Zral1MlsssUniversity Hospitals Tripoint Medical CenterComment on above:Performed By: #### ERTPF, CONNER, LIP, LIVP, TEGCR ####[address] [address] Lymphocytes Auto #/vol (Bld)2.13 10*3/uL Normal1.0-4.8[facility] Medical CenterComment on above:Performed By: #### ERTPF, CONNER, LIP, LIVP, TEGCR ####[address] [address] Lymphocytes/100 WBC Auto (Bld)9 %Drm46-48JijauUniversity Hospitals Tripoint Medical CenterComment on above:Performed By: #### ERTPF, CONNER, LIP, LIVP, TEGCR ####[address] [address] Monocytes Auto #/vol (Bld)0.95 10*3/uLHigh0.1-0.8[facility] CenterComment on above:Performed By: #### ERTPF, CONNER, LIP, LIVP, TEGCR ####[address] [address] Monocytes/100 WBC Auto (Bld)4 %Normal1-7 [facility] CenterComment on above:Performed By: #### ERTPF, CONNER, LIP, LIVP, TEGCR ####[address] [address] [phone] Interp Eduard (Bld)ANISOCYTOSIS PRESENTNormalUniversity Hospitals Tripoint Medical CenterComment on above:Result Comment: MACROCYTOSIS PRESENT Performed By: #### ERTPF, CONNER, LIP, LIVP, TEGCR ####[facility] [address]bwt[address] [place] [address] Neutrophil (Seg)82 %Bvxo97-46WfvpaUniversity Hospitals Tripoint Medical CenterComment on above:Performed By: #### ERTPF, CONNER, LIP, LIVP, TEGCR ####[address] [address] Nucleated RBC/100 WBC Ratio (Bld)1 per 100 BXUDhzd2WvoacUniversity Hospitals Tripoint Medical CenterComment on above:Performed By: #### ERTPF, CONNER, LIP, LIVP, TEGCR ####[address] [address] Erythrocyte distribution width Auto Ratio (RBC)18.3 %High11.8-14.4[facility] Medical CenterComment on above:Performed By: #### ERTPF, CONNER, LIP, LIVP, TEGCR ####[address] [address] Hematocrit Auto Volume Fraction (Bld)33.7 %Low40.7-50.3[facility] Medical CenterComment on above:Performed By: #### ERTPF, CONNER, LIP, LIVP, TEGCR ####[facility] [address]upavv[address]1 [place] [address] Hemoglobin mass conc (Bld)8.8 g/dLLow 13.0-17.0[facility] CenterComment on above:Performed By: #### ERTPF, CONNER, LIP, LIVP, TEGCR ####[address] [address] MCH Auto Entitic mass (RBC)30.1 mjBvpuaj61.2-33.5[facility] CenterComment on above:Performed By: #### ERTPF, CONNER, LIP, LIVP, TEGCR ####[place] [address] MCHC Auto mass conc (RBC)26.1 g/dLLow28.4-34.8[facility] CenterComment on above:Performed By: #### ERTPF, CONNER, LIP, LIVP, TEGCR ####[facility] [address] [place] [address] MCV Auto Entitic volume (RBC)115.4 uRGjwi32.6-102.9[facility] CenterComment on above: Performed By: #### ERTPF, CONNER, LIP, LIVP, TEGCR ####[place] [address] NRBC Automated1.2 per 100 WBCHigh0.0[facility] Medical CenterComment on above:Performed By: #### ERTPF, CONNER, LIP, LIVP, TEGCR ####[place] [address] Platelet mean volume Auto Entitic volume (Bld)10.7 fLNormal8.1-13.5[facility] CenterComment on above:Performed By: #### ERTPF, CONNER, LIP, LIVP, TEGCR ####[place] [address] Platelets Auto #/vol (Bld)775 10*3/jCUebg430-046EioxcUniversity Hospitals Tripoint Medical Center Comment on above:Performed By: #### ERTPF, CONNER, LIP, LIVP, TEGCR ####[place] [address] RBC Auto #/vol (Bld)2.92 10*6/uLLow4.21-5.77[facility] CenterComment on above:Performed By: #### ERTPF, CONNER, LIP, LIVP, TEGCR ####[address] [address] WBC Auto #/vol (Bld)23.7 10*3/uLHigh3.5-11.3 [facility] CenterComment on above:Performed By: #### ERTPF, CONNER, LIP, LIVP, TEGCR ####[facility] [address] [place] [address] Auto Diff PerformedNOT REPORTEDFairfield Medical CenterComment on above:Performed By: #### ERTPF, CONNER, LIP, LIVP, TEGCR ####[address] [address] Platelets Auto #/vol (Bld)NOT REPORTEDFairfield Medical CenterComment on above: Performed By: #### ERTPF, CONNER, LIP, LIVP, TEGCR ####[address] [address] RBC morphology finding Nom (Bld)NOT REPORTEDFairfield Medical CenterComment on above:Performed By: #### ERTPF, CONNER, LIP, LIVP, TEGCR ####[address] [address] WBC MorphologyNOT REPORTEDFairfield Medical CenterComment on above:Performed By: #### ERTPF, CONNER, LIP, LIVP, TEGCR ####[facility] [address] [place] [address] NA (Sodium)on 62-21-0898Zyldhv molar buws100 mmol/TWznl050-406PgoymUniversity Hospitals Tripoint Medical Center Comment on above:Performed By: #### ERTPF, CONNER, LIP, LIVP, TEGCR ####[facility] [employer] [place] [address] OPERATIVE REPORTon 31-49-3966WKSFBQCNC REPORTAVITA [facility]ALTH [facility] [address] [place] [address] OPERATIVE REPORTPATIENT NAME: ALEJO FLOYD : 1960MED REC NO: [id number] ROOM: [address] [place] [address] NO: [id number] ADMITDATE: 01/19/2018PROVIDER: Ele MottDATE OF PROCEDURE: 02/01/2018SURGEON: [...] patient's sister, Alex Floyd, his power of workers compensation defense attorney. All risks, benefits and alternatives [...] this, cut in a single layer and qmzbnf-hc-zghtt stitches frominferior to the proximal aspect of [...] of this case.ELE MOTTD: 02/01/2018 15:34:43 GEORGE/[email or web address]_IJob#: [id number] Doc#: [id number]: Albina Quinn MD Nallely [facility] HospitalXR CHEST PORTABLEon [id number] CHEST PORTABLE EXAMINATION:SINGLE XRAY VIEW OF THE CHEST02/01/2018 11:37 amCOMPARISON:Chest radiograph 01/30/2018, 01/29/2018HISTORY:ORDERING SYSTEM PROVIDED HISTORY: TachypneaTECHNOLOGIST PROVIDED HISTORY:TachypneaFINDINGS:Hypoexpanded lungs with bronchovascular crowding and fluctuating basilaratelectasis. No pneumothorax. Blunted left costophrenic sulcus isunchanged. Stable cardiomediastinal contours. Esophagogastric tubeterminates over the gastric bubble. Mild gaseous distention of the esophagus.IMPRESSION:Unchanged small left pleural effusion and basilar atelectasis. Borderlineinterstitial edema.Interpreted by:NADEGE Mendezigned by:Jeramy Solano MD18Final resultNormalUniversity Hospitals Tripoint Medical CenterBasic Metabolic Profon 01-31-2018(cont.)NormalUniversity Hospitals Tripoint Medical CenterComment on above:Result Comment: Average GFR for 50-59 years old: 93 mL/min/1.73sq mChronic Kidney Disease: <60 mL/min/1.73sq mKidney failure: <15 mL/min/1.73sq meGFR calculated using average adult body mass. Additional eGFR calculator available at:http://www.NetShoes.StylePuzzle/multiple_crcl_2012.htmPerformed By: #### ERTPF, CONNER, LIP, LIVP, TEGCR ####Ens[address] [place], [place] [address] Anion gap 3 molar conc14 mmol/LNormal9-17[facility] CenterComment on above:Performed By: #### ERTPF, CONNER, LIP, LIVP, TEGCR ####Sarithay [address] [place], [place] [address] Calcium mass conc8.1 mg/dLLow8.6-10.4[facility] Medical CenterComment on above:Performed By: #### ERTPF, CONNER, LIP, LIVP, TEGCR ####[facility] [address] [place] [address] Chloride molar qtqz477 mmol/NOjlt26-065 [facility] Medical CenterComment on above:Performed By: #### ERTPF, CONNER, LIP, LIVP, TEGCR ####[address] [place] [address] WQ5 molar conc23 mmol/JKvukhz96-42JvqciUniversity Hospitals Tripoint Medical Center Comment on above:Performed By: #### ERTPF, CONNER, LIP, LIVP, TEGCR ####[address] [place] [address] Creatinine mass conc1.31 mg/dLHigh0.70-1.20[facility] Medical CenterComment on above:Performed By: #### ERTPF, CONNER, LIP, LIVP, TEGCR ####[address] [address] GFR, Amer>60Normal>60[facility] Medical CenterComment on above:Performed By: #### ERTPF, CONNER, LIP, LIVP, TEGCR ####[address] [place] [address] GFR,non Amer56 mL/minLow>60[facility] Medical CenterComment on above: Performed By: #### ERTPF, CONNER, LIP, LIVP, TEGCR ####[facility] [address] [place] [address] Glucose mass fxoc725 mg/sXXczz31-32KjnqzLos Alamitos Medical CenterComment on above:Performed By: #### ERTPF, CONNER, LIP, LIVP, TEGCR ####[address] [place] [address] Potassium molar conc3.3 mmol/LLow3.7-5.3[facility] Medical CenterComment on above:Performed By: #### ERTPF, CONNER, LIP, LIVP, TEGCR ####Saritha [address] [place] [address] Sodium molar iwal163 mmol/VNksh850-489ZmyhqUniversity Hospitals Tripoint Medical CenterComment on above:Performed By: #### ERTPF, CONNER, LIP, LIVP, TEGCR ####[place] [address] Urea nitrogen mass conc20 mg/dLNormal6-20[facility] Medical CenterComment on above:Performed By: #### ERTPF, CONNER, LIP, LIVP, TEGCR ####[place] [address] BUN/CRE Ratio NOT REPORTEDNormal9-20[facility] Medical CenterComment on above:Performed By: #### ERTPF, CONNER, LIP, LIVP, TEGCR ####[place], [place] [phone]:NOT REPORTEDNormalUniversity Hospitals Tripoint Medical CenterComment on above:Performed By: #### ERTPF, CONNER, LIP, LIVP, TEGCR ####[place], [place] [phone] with Diff on 13-00-3964Bjs. Basophil0.00 k/uLNormal0.0-0.2MLos Alamitos Medical Center Comment on above:Performed By: #### ERTPF, CONNER, LIP, LIVP, TEGCR ####[place] [address] Abs.Imm.Granulocyte0.00 k/uLNormal0.00-0.30[facility] Medical CenterComment on above:Performed By: #### ERTPF, CONNER, LIP, LIVP, TEGCR ####[address] [place] [address] Abs.Neutrophil (Seg)21.68 k/uLHigh1.8-7.7[facility] Medical CenterComment on above:Performed By: #### ERTPF, CONNER, LIP, LIVP, TEGCR ####[address] [address] Basophils/100 WBC Auto (Bld)0 %Normal0-2MercWoodland Memorial HospitalComment on above:Performed By: #### ERTPF, CONNER, LIP, LIVP, TEGCR ####[address] [address] Eosinophils Auto #/vol (Bld)0.25 10*3/uLNormal0.0-0.4[facility] Medical CenterComment on above: Performed By: #### ERTPF, CONNER, LIP, LIVP, TEGCR ####[address] [address] Eosinophils/100 WBC Auto (Bld)1 %Normal 1-4[facility] Medical CenterComment on above:Performed By: #### ERTPF, CONNER, LIP, LIVP, TEGCR ####[address] [address] Immature granulocytes #/vol (Bld)0 %Hgdkke9EdkfdUniversity Hospitals Tripoint Medical CenterComment on above:Performed By: #### ERTPF, CONNER, LIP, LIVP, TEGCR ####[address] [address] Lymphocytes Auto #/vol (Bld)2.77 10*3/uLNormal1.0-4.8[facility] Medical CenterComment on above:Performed By: #### ERTPF, CONNER, LIP, LIVP, TEGCR ####[address] [address] Lymphocytes/100 WBC Auto (Bld)11 %Sfb84-41JiofnUniversity Hospitals Tripoint Medical CenterComment on above:Performed By: #### ERTPF, CONNER, LIP, LIVP, TEGCR ####[address] [address] Monocytes Auto #/vol (Bld)0.50 10*3/uLNormal0.1-0.8[facility] Medical CenterComment on above:Performed By: #### ERTPF, CONNER, LIP, LIVP, TEGCR ####[address] [address] Monocytes/100 WBC Auto (Bld)2 %Normal1-7[facility] CenterComment on above:Performed By: #### ERTPF, CONNER, LIP, LIVP, TEGCR ####[address] [address] Morphology Interp Eduard (Bld)MACROCYTOSIS PRESENTNormalUniversity Hospitals Tripoint Medical CenterComment on above: Result Comment: ANISOCYTOSIS PRESENTPerformed By: #### ERTPF, CONNER, LIP, LIVP, TEGCR ####[address] [address] Neutrophil (Seg)86 %Epuu30-37TwcvlUniversity Hospitals Tripoint Medical CenterComment on above: Performed By: #### ERTPF, CONNER, LIP, LIVP, TEGCR ####[address] [address] Nucleated RBC/100 WBC Ratio (Bld)1 per 100 TBUBaqb9IanpqUniversity Hospitals Tripoint Medical CenterComment on above:Performed By: #### ERTPF, CONNER, LIP, LIVP, TEGCR ####[address] [address] Erythrocyte distribution width Auto Ratio (RBC)17.6 %High 11.8-14.4[facility] CenterComment on above:Performed By: #### ERTPF, CONNER, LIP, LIVP, TEGCR ####[facility] U[address] [place] [address] Hematocrit Auto Volume Fraction (Bld)30.9 %Low40.7-50.3[facility]y [facility] Medical CenterComment on above:Performed By: #### ERTPF, CONNER, LIP, LIVP, TEGCR ####[facility] [address] [place] [address] Hemoglobin mass conc (Bld)8.8 g/dLLow13.0-17.0[facility] Comment on above:Performed By: #### ERTPF, CONNER, LIP, LIVP, TEGCR ####[address] [address] MCH Auto Entitic mass (RBC)29.9 slSklttu34.2-33.5[facility] CenterComment on above: Performed By: #### ERTPF, CONNER, LIP, LIVP, TEGCR ####[address] [address] MCHC Auto mass conc (RBC)28.5 g/dLNormal 28.4-34.8[facility] CenterComment on above:Performed By: #### ERTPF, CONNER, LIP, LIVP, TEGCR ####[address] [address] MCV Auto Entitic volume (RBC)105.1 qFYbjk31.6-102.9[facility] CenterComment on above:Performed By: #### ERTPF, CONNER, LIP, LIVP, TEGCR ####[address] [address] NRBC Automated0.5 per 100 WBCHigh0.0[facility] CenterComment on above: Performed By: #### ERTPF, CONNER, LIP, LIVP, TEGCR ####[address] [address] Platelet mean volume Auto Entitic volume (Bld)10.6 fLNormal8.1-13.5[facility] CenterComment on above: Performed By: #### ERTPF, CONNER, LIP, LIVP, TEGCR ####[address] [address] Platelets Auto #/vol (Bld)852 10*3/uLHigh 138-453[facility] CenterComment on above:Performed By: #### ERTPF, CONNER, LIP, LIVP, TEGCR ####[address] [address] RBC Auto #/vol (Bld)2.94 10*6/uLLow4.21-5.77[facility] CenterComment on above:Performed By: #### ERTPF, CONNER, LIP, LIVP, TEGCR ####[address] [address] WBC Auto #/vol (Bld)25.2 10*3/uLHigh3.5-11.3MLos Alamitos Medical CenterComment on above: Performed By: #### ERTPF, CONNER, LIP, LIVP, TEGCR ####[address] [address] Auto Diff PerformedNOT REPORTEDNormal [facility] CenterComment on above:Performed By: #### ERTPF, CONNER, LIP, LIVP, TEGCR ####[address] [address] Platelets Auto #/vol (Bld)NOT REPORTEDNormalUniversity Hospitals Tripoint Medical CenterComment on above:Performed By: #### ERTPF, CONNER, LIP, LIVP, TEGCR ####[facility] E[address]izauafylji[address] [place] [address] RBC morphology finding Nom (Bld)NOT REPORTEDNormalUniversity Hospitals Tripoint Medical CenterComment on above:Performed By: #### ERTPF, CONNER, LIP, LIVP, TEGCR ####Sarithay [address] [place] [address] [phone] MorphologyNOT REPORTEDNormalUniversity Hospitals Tripoint Medical CenterComment on above:Performed By: #### ERTPF, CONNER, LIP, LIVP, TEGCR ####[address] [address] Magnesiumon 58-70-6575Bdnkmonrc mass conc2.7 mg/dLHigh1.6-2.6[facility] CenterComment on above:Performed By: #### ERTPF, CONNER, LIP, LIVP, TEGCR ####[facility] B[address]ts[address] [place] [address] [phone], Inorg.on 51-72-3606Ebboocopat, Inorg.2.7 mg/dLNormal2.5-4.5[facility] CenterComment on above:Performed By: #### ERTPF, CONNER, LIP, LIVP, TEGCR ####[facility] [address] [place] [address] [phone] w/ Microon 01-31-2018-----NormalMerScripps Mercy HospitalComment on above: Performed By: #### ERTPF, CONNER, LIP, LIVP, TEGCR ####[facility] [address]kylndkchgyq[address] [place] [address] [phone] Acid,UrNegativeNormalNEGUniversity Hospitals Tripoint Medical CenterComment on above:Performed By: #### ERTPF, CONNER, LIP, LIVP, TEGCR ####[facility] Vbfwydikehfz[address] [place] [address] Bilirubin, SemiQt,UrNegativeNormalNEGUniversity Hospitals Tripoint Medical CenterComment on above:Performed By: #### ERTPF, CONNER, LIP, LIVP, TEGCR ####[address] [address] ColorYELLOWNormalYELMerScripps Mercy HospitalComment on above:Performed By: #### ERTPF, CONNER, LIP, LIVP, TEGCR ####[address] [address] Epithelial cells0 TO 1Arhnfd5-2QvgamUniversity Hospitals Tripoint Medical CenterComment on above:Performed By: #### ERTPF, CONNER, LIP, LIVP, TEGCR ####[address] [address] Glucose,Semi-qnt,UrNegativeNormalNEGUniversity Hospitals Tripoint Medical CenterComment on above:Performed By: #### ERTPF, CONNER, LIP, LIVP, TEGCR ####[address] [address] Hemoglobin, UrMODERATEAbnormalNEGUniversity Hospitals Tripoint Medical CenterComment on above:Performed By: #### ERTPF, CONNER, LIP, LIVP, TEGCR ####[address] [address] Leuckocyte EsteraseNegativeNormalNEG [facility] CenterComment on above:Performed By: #### ERTPF, CONNER, LIP, LIVP, TEGCR ####[address] [address] Nitrite,UrNegativeNormalNEGUniversity Hospitals Tripoint Medical CenterComment on above:Performed By: #### ERTPF, CONNER, LIP, LIVP, TEGCR ####[address] [phone],Ur6.1Wgkrnf0.0-8.0 [facility] CenterComment on above:Performed By: #### ERTPF, CONNER, LIP, LIVP, TEGCR ####[place] [address] Protein mass conc1+AbnormalNEGUniversity Hospitals Tripoint Medical Center Comment on above:Performed By: #### ERTPF, CONNER, LIP, LIVP, TEGCR ####[place] [address] RBC Test strip #/vol (U) 5 TO 24Afkxsr5-8JjglpUniversity Hospitals Tripoint Medical CenterComment on above:Result Comment: Reference range defined for non-centrifuged specimen.Performed By: #### ERTPF, CONNER, LIP, LIVP, TEGCR ####[place] [address] Spec. [place],Ur1.830Zgodpy2.005-1.030[facility] Medical CenterComment on above:Performed By: #### ERTPF, CONNER, LIP, LIVP, TEGCR ####[place] [address] TurbidityCLEARNormal CLEARUniversity Hospitals Tripoint Medical CenterComment on above:Performed By: #### ERTPF, CONNER, LIP, LIVP, TEGCR ####[place] [address] Urine WBC's0 TO 6Vzciio9-3SavavUniversity Hospitals Tripoint Medical CenterComment on above:Performed By: #### ERTPF, CONNER, LIP, LIVP, TEGCR ####[place] [address] Urobilinogen,UrNormal NormalNORMUniversity Hospitals Tripoint Medical CenterComment on above:Performed By: #### ERTPF, CONNER, LIP, LIVP, TEGCR ####[address] [place] [address] Amorphous SedimentNOT REPORTEDNormalNONEMeCommunity Hospital of San BernardinoComment on above:Performed By: #### ERTPF, CONNER, LIP, LIVP, TEGCR ####[facility] Jqzclawzlpqm[address] [place] [phone] REPORTEDNormalNONEMeCommunity Hospital of San BernardinoComment on above:Performed By: #### ERTPF, CONNER, LIP, LIVP, TEGCR ####[facility] [address]vtnhtgl[address] [place] [address] CastsNOT REPORTEDNormal0-8[facility] Comment on above:Performed By: #### ERTPF, CONNER, LIP, LIVP, TEGCR ####[address] [address] CrystalsNOT REPORTED NormalNONEMeCommunity Hospital of San BernardinoComment on above:Performed By: #### ERTPF, CONNER, LIP, LIVP, TEGCR ####[facility] [address] [place] [address] Epithelial, RenalNOT MPPNVELJIymezb5XinroUniversity Hospitals Tripoint Medical CenterComment on above:Performed By: #### ERTPF, CONNER, LIP, LIVP, TEGCR ####[facility] [address]hr[address] [place] [address] Mucus StrandsNOT REPORTEDNormalNONEMeCommunity Hospital of San BernardinoComment on above:Performed By: #### ERTPF, CONNER, LIP, LIVP, TEGCR ####[facility] Ab[address] [place] [address] Other ObservationsNOT REPORTEDNormalNREQUniversity Hospitals Tripoint Medical CenterComment on above:Performed By: #### ERTPF, CONNER, LIP, LIVP, TEGCR ####[facility] [address]my[address] [place] [phone] REPORTEDNormalNONOhio Valley Surgical HospitalComment on above:Performed By: #### ERTPF, CONNER, LIP, LIVP, TEGCR ####[place] [address] YeastNOT REPORTEDNormSt. Vincent HospitalComment on above:Performed By: #### ERTPF, CONNER, LIP, LIVP, TEGCR ####[place] [address] CBC with Diff on 31-17-3625Dbo. Basophil0.00 k/uLNormal0.0-0.2MLos Alamitos Medical Center Comment on above:Performed By: #### ERTPF, CONNER, LIP, LIVP, TEGCR ####[place] [address] Abs.Imm.Granulocyte0.22 k/uLNormal0.00-0.30MerScripps Mercy HospitalComment on above:Performed By: #### ERTPF, CONNER, LIP, LIVP, TEGCR ####[place] [address] Abs.Neutrophil (Seg)17.57 k/uLHigh1.8-7.7[facility] CenterComment on above:Performed By: #### ERTPF, CONNER, LIP, LIVP, TEGCR ####[place] [address] Basophils/100 WBC Auto (Bld)0 %Normal0-2MLos Alamitos Medical CenterComment on above:Performed By: #### ERTPF, CONNER, LIP, LIVP, TEGCR ####[place] [address] Eosinophils Auto #/vol (Bld)0.22 10*3/uLNormal0.0-0.4[facility] CenterComment on above: Performed By: #### ERTPF, CONNER, LIP, LIVP, TEGCR ####[facility] M[address]zhau[address]kf[address] [place] [address] Eosinophils/100 WBC Auto (Bld)1 %Normal 1-4[facility] CenterComment on above:Performed By: #### ERTPF, CONNER, LIP, LIVP, TEGCR ####[address] [address] Immature granulocytes #/vol (Bld)1 %Keqv8AqgrxUniversity Hospitals Tripoint Medical CenterComment on above:Performed By: #### ERTPF, CONNER, LIP, LIVP, TEGCR ####[address] [address] Lymphocytes Auto #/vol (Bld)2.17 10*3/uLNormal1.0-4.8[facility] CenterComment on above:Performed By: #### ERTPF, CONNER, LIP, LIVP, TEGCR ####[address] [address] Lymphocytes/100 WBC Auto (Bld)10 %Hih16-34LdpiqUniversity Hospitals Tripoint Medical CenterComment on above:Performed By: #### ERTPF, CONENR, LIP, LIVP, TEGCR ####[address] [address] Monocytes Auto #/vol (Bld)1.52 10*3/uLHigh0.1-0.8[facility] CenterComment on above:Performed By: #### ERTPF, CONNER, LIP, LIVP, TEGCR ####[address] [address] Monocytes/100 WBC Auto (Bld)7 %Normal1-7[facility] CenterComment on above:Performed By: #### ERTPF, CONNER, LIP, LIVP, TEGCR ####Filomena [address] [place] [address] Morphology Interp Eduard (Bld)ANISOCYTOSIS PRESENTNormalUniversity Hospitals Tripoint Medical CenterComment on above: Result Comment: INCREASED BANDS PRESENTPerformed By: #### ERTPF, CONNER, LIP, LIVP, TEGCR ####Sarithaernie [address] [address] Neutrophil (Seg)81 %Vahh69-51OecvrUniversity Hospitals Tripoint Medical CenterComment on above: Performed By: #### ERTPF, CONNER, LIP, LIVP, TEGCR ####Filomena [address] [address] Erythrocyte distribution width Auto Ratio (RBC)17.1 %High11.8-14.4[facility] Medical CenterComment on above: Performed By: #### ERTPF, CONNER, LIP, LIVP, TEGCR ####[address] [address] Hematocrit Auto Volume Fraction (Bld)29.8 %Low40.7-50.3MLos Alamitos Medical CenterComment on above:Performed By: #### ERTPF, CONNER, LIP, LIVP, TEGCR ####[address] [address] Hemoglobin mass conc (Bld)8.9 g/dLLow13.0-17.0[facility] CenterComment on above:Performed By: #### ERTPF, CONNER, LIP, LIVP, TEGCR ####[address] [address] MCH Auto Entitic mass (RBC)29.9 wdIrupro08.2-33.5[facility] Comment on above:Performed By: #### ERTPF, CONNER, LIP, LIVP, TEGCR ####[facility] [address] [place] [address] [phone] Auto mass conc (RBC)29.9 g/lZTxhtcw28.4-34.8[facility] CenterComment on above: Performed By: #### ERTPF, CONNER, LIP, LIVP, TEGCR ####[address] [address] MCV Auto Entitic volume (RBC)100.0 fL Otvfda96.6-102.9[facility] CenterComment on above:Performed By: #### ERTPF, CONNER, LIP, LIVP, TEGCR ####[place] [address] NRBC Automated0.1 per 100 WBCHigh0.0[facility] CenterComment on above:Performed By: #### ERTPF, CONNER, LIP, LIVP, TEGCR ####[place], [place] [phone] mean volume Auto Entitic volume (Bld)10.5 fLNormal8.1-13.5[facility] CenterComment on above:Performed By: #### ERTPF, CONNER, LIP, LIVP, TEGCR ####[place], [place] [phone] Auto #/vol (Bld)850 10*3/lCJelt094-432JzzblUniversity Hospitals Tripoint Medical CenterComment on above: Performed By: #### ERTPF, CONNER, LIP, LIVP, TEGCR ####[place] [address] RBC Auto #/vol (Bld)2.98 10*6/uLLow 4.21-5.77[facility] CenterComment on above:Performed By: #### ERTPF, CONNER, LIP, LIVP, TEGCR ####[address] [place] [address] WBC Auto #/vol (Bld)21.7 10*3/uLHigh3.5-11.3[facility] Medical CenterComment on above:Performed By: #### ERTPF, CONNER, LIP, LIVP, TEGCR ####Sarithay [address] [place] [address] Auto Diff PerformedNOT REPORTEDNormalUniversity Hospitals Tripoint Medical CenterComment on above: Performed By: #### ERTPF, CONNER, LIP, LIVP, TEGCR ####[address] [address] Platelets Auto #/vol (Bld)NOT REPORTED NormalUniversity Hospitals Tripoint Medical CenterComment on above:Performed By: #### ERTPF, CONNER, LIP, LIVP, TEGCR ####Filomena Q[address]vg[address] [place] [address] RBC morphology finding Nom (Bld)NOT REPORTEDNormalUniversity Hospitals Tripoint Medical CenterComment on above:Performed By: #### ERTPF, CONNER, LIP, LIVP, TEGCR ####Sarithay [address] [place] [address] WBC MorphologyNOT REPORTEDFairfield Medical CenterComment on above: Performed By: #### ERTPF, CONNER, LIP, LIVP, TEGCR ####[facility] [address]cuqgxknxcx[address] [place] [address] Comp Metabolic Profon 01-30-2018(cont.) NormalUniversity Hospitals Tripoint Medical CenterComment on above:Result Comment: Average GFR for 50-59 years old: 93 mL/min/1.73sq mChronic Kidney Disease: <60 mL /min/1.73sq mKidney failure: <15 mL/min/1.73sq meGFR calculated using average adult body mass. Additional eGFR calculator available at:http://www.NetShoes.com/multiple_crcl_2012.htmPerformed By: #### ERTPF, CONNER, LIP, LIVP, TEGCR ####[place] [address] [place] [address] Albumin mass conc2.6 g/dLLow3.5-5.2MLos Alamitos Medical CenterComment on above:Performed By: #### ERTPF, CONNER, LIP, LIVP, TEGCR ####[address] [address] Albumin/Globulin mass ratio0.6 {ratio}Low1.0-2.5[facility] CenterComment on above: Performed By: #### ERTPF, CONNER, LIP, LIVP, TEGCR ####[address] [address] Alkaline Phos76 U/WOwtohp66-605BabolUniversity Hospitals Tripoint Medical CenterComment on above:Performed By: #### ERTPF, CONNER, LIP, LIVP, TEGCR ####[address] [address] ALT enzyme act/vol21 U/LNormal5-41[facility] CenterComment on above: Performed By: #### ERTPF, CONNER, LIP, LIVP, TEGCR ####[address] [address] Anion gap 3 molar conc10 mmol/LNormal9-17 [facility] CenterComment on above:Performed By: #### ERTPF, CONNER, LIP, LIVP, TEGCR ####[place] [address] [place] 43[address] AST enzyme act/vol51 U/LHigh<40[facility] Comment on above:Performed By: #### ERTPF, CONNER, LIP, LIVP, TEGCR ####[address] [address] Bilirubin Ql (U)0.98 mg/dLNormal0.3-1.2[facility]y [facility] CenterComment on above:Performed By: #### ERTPF, CONNER, LIP, LIVP, TEGCR ####[facility] [address]mpvriubw[address] [place] [address] Calcium mass conc8.1 mg/dLLow8.6-10.4[facility] CenterComment on above:Performed By: #### ERTPF, CONNER, LIP, LIVP, TEGCR ####[facility] [address]xatcjoacozo[address] [place] [address] Chloride molar padf852 mmol/HImoe76-314WrosdUniversity Hospitals Tripoint Medical CenterComment on above: Performed By: #### ERTPF, CONNER, LIP, LIVP, TEGCR ####[address] [address] RO4 molar conc27 mmol/EAblyjo78-91GbullUniversity Hospitals Tripoint Medical CenterComment on above:Performed By: #### ERTPF, CONNER, LIP, LIVP, TEGCR ####[facility] [address] [place] [address] Creatinine mass conc1.47 mg/dLHigh0.70-1.20[facility] Comment on above:Performed By: #### ERTPF, CONNER, LIP, LIVP, TEGCR ####[facility] [address]bcpoohdkn17[address] [place] [address] GFR, Amer60 mL/minLow>60MerScripps Mercy HospitalComment on above:Performed By: #### ERTPF, CONNER, LIP, LIVP, TEGCR ####[facility] [address]jynnlpm2504 [place] [address] GFR,non Amer49 mL/minLow>60[facility] CenterComment on above:Performed By: #### ERTPF, CONNER, LIP, LIVP, TEGCR ####[facility] [address]flqdivig[address] [place] [address] Glucose mass hycq740 mg/jQNfxy95-96AywsqLos Alamitos Medical CenterComment on above:Performed By: #### ERTPF, CONNER, LIP, LIVP, TEGCR ####[address] [address] Potassium molar conc3.2 mmol/LLow3.7-5.3MLos Alamitos Medical CenterComment on above:Performed By: #### ERTPF, CONNER, LIP, LIVP, TEGCR ####[address] [address] Protein mass conc6.7 g/dLNormal6.4-8.3MLos Alamitos Medical CenterComment on above: Performed By: #### ERTPF, CONNER, LIP, LIVP, TEGCR ####[address] [address] Sodium molar sbqe823 mmol/GNwxx884-999 [facility] CenterComment on above:Performed By: #### ERTPF, CONNER, LIP, LIVP, TEGCR ####[address] [address] Urea nitrogen mass conc23 mg/dLHigh6-20[facility] CenterComment on above:Performed By: #### ERTPF, CONNER, LIP, LIVP, TEGCR ####[address] [address] BUN/CRE RatioNOT REPORTEDNormal9-20[facility] CenterComment on above:Performed By: #### ERTPF, CONNER, LIP, LIVP, TEGCR ####[address] [address] Staging:NOT REPORTEDNormalUniversity Hospitals [facility] Center Comment on above:Performed By: #### ERTPF, CONNER, LIP, LIVP, TEGCR ####[facility] [address] [place] [address] Magnesiumon 01-30-2018 Magnesium mass conc3.0 mg/dLHigh1.6-2.6[facility] Medical CenterComment on above:Performed By: #### ERTPF, CONNER, LIP, LIVP, TEGCR ####[facility] [address] [place] [address] Phosphorus, Inorg.on 65-69-5389Xxzpnolffg, Inorg.1.9 mg/dLLow2.5-4.5[facility] Comment on above:Performed By: #### ERTPF, CONNER, LIP, LIVP, TEGCR ####Sarithay [address] [place], [place] [id number] XR CHEST PORTABLEon 95-93-6688PZ CHEST PORTABLEEXAMINATION:SINGLE XRAY VIEW OF THE CHEST01/30/2018 8:26 amCOMPARISON:01/29/2018HISTORY:ORDERING SYSTEM PROVIDED HISTORY: tachypneaTECHNOLOGIST PROVIDED HISTORY:tachypneaFINDINGS:The heart and mediasti nal structures are stable. NG tube and right upperextremity PICC line are in place. Bibasilar atelectasis is present withsmall pleural effusions.IMPRESSION: Small pleural effusions with bibasilar atelectasisInterpreted by:NADEGE Rosalesigned by:Lauro Hood MD01/30/18Final resultNormalMerScripps Mercy HospitalAmmoniaon 31-32-6699Jauycpa mass conc (P)33 umol/CChpyka36-50HjuogUniversity Hospitals Tripoint Medical CenterComment on above:Performed By: #### ERTPF, CONNER, LIP, LIVP, TEGCR ####[facility] [address]rcj[address] [place], [place] [id number] Basic Metabolic Profon 01-29-2018(cont.)NormalUniversity Hospitals Tripoint Medical Center Comment on above:Result Comment: Average GFR for 50-59 years old: 93 mL/min/1.73sq mChronic Kidney Disease: <60 mL/min/1.73sq mKidney failure: <15 mL/min/1.73sq meGFR calculated using average adult body mass. Additional eGFR calculator available at:http://www.raksul/multiple_crcl_2012.htmPerformed By: #### ERTPF, CONNER, LIP, LIVP, TEGCR ####[facility] [address] [place] [address] Anion gap 3 molar conc13 mmol/LNormal9-17[facility] CenterComment on above:Performed By: #### ERTPF, CONNER, LIP, LIVP, TEGCR ####[facility] [address] [place] [address] Calcium mass conc7.6 mg/dLLow8.6-10.4[facility] CenterComment on above:Performed By: #### ERTPF, CONNER, LIP, LIVP, TEGCR ####[place] [address] [place] [address] Chloride molar csvc010 mmol/VPczk06-058 [facility] CenterComment on above:Performed By: #### ERTPF, CONNER, LIP, LIVP, TEGCR ####[place] [address] [place] 43[address] US3 molar conc28 mmol/OAybglm43-36ZrlefUniversity Hospitals Tripoint Medical Center Comment on above:Performed By: #### ERTPF, CONNER, LIP, LIVP, TEGCR ####[place] [address] [place] [address] Creatinine mass conc1.42 mg/dLHigh0.70-1.20[facility] CenterComment on above:Performed By: #### ERTPF, CONNER, LIP, LIVP, TEGCR ####[place] [address] [place] [address] GFR, Amer>60Normal>60[facility] CenterComment on above:Performed By: #### ERTPF, CONNER, LIP, LIVP, TEGCR ####[facility] [address] [place] [address] GFR,non Amer51 mL/minLow>60[facility] CenterComment on above: Performed By: #### ERTPF, CONNER, LIP, LIVP, TEGCR ####[facility] [address] [place] [address] Glucose mass jmpo804 mg/gQMise45-80QkyjcLos Alamitos Medical CenterComment on above:Performed By: #### ERTPF, CONNER, LIP, LIVP, TEGCR ####[address] [address] Potassium molar conc3.9 mmol/LNormal3.7-5.3MLos Alamitos Medical Center Comment on above:Result Comment: SPECIMEN SLIGHTLY HEMOLYZED, RESULTS MAY BE ADVERSELY AFFECTED.Performed By: #### ERTPF, CONNER, LIP, LIVP, TEGCR ####[facility] [address] [place] [address] Sodium molar klgw445 mmol/YCjer071-659UoszlUniversity Hospitals Tripoint Medical CenterComment on above:Performed By: #### ERTPF, CONNER, LIP, LIVP, TEGCR ####[facility] [address] [place] [address] Urea nitrogen mass conc32 mg/dLHigh6-20[facility] CenterComment on above:Performed By: #### ERTPF, CONNER, LIP, LIVP, TEGCR ####[facility] [address] [place] [address] BUN/CRE Ratio NOT REPORTEDNormal9-20[facility] CenterComment on above:Performed By: #### ERTPF, CONNER, LIP, LIVP, TEGCR ####Filomena [address] [place] [address] Staging:NOT REPORTEDNormalMerScripps Mercy HospitalComment on above:Performed By: #### ERTPF, CONNER, LIP, LIVP, TEGCR ####[address] [address] Brain Natri. Peptideon 16-74-5363Cneonxmhwum peptide B mass conc (Bld)NormalUniversity Hospitals Tripoint Medical CenterComment on above:Result Comment: Pro-BNP Reference Range:Rule Out: <300[place]: Age <50 300-450 Age 50-75 300-900 Age >75 300-1800Usually represents mild to moderate HF but other cardiopulmonary causes cannot be ruled out.Rule In: Age <50 >450 Age 50-75 >900 Age >75 >1800Performed By: #### ERTPF, CONNER, LIP, LIVP, TEGCR ####[address] [address] Natriuretic peptide B mass conc (Bld)1400 pg/mLHigh<300[facility] CenterComment on above:Result Comment: Pro-BNP results cannot be compared to BNP results.Performed By: #### ERTPF, CONNER, LIP, LIVP, TEGCR ####[place]ith[place] [address] [phone] with Diff on [id number]. Basophil0.00 k/uLNormal0.0-0.2MLos [facility]amitos [facility] Comment on above:Performed By: #### ERTPF, CONNER, LIP, LIVP, TEGCR ####Saritha [address] [place] [address] [phone].Imm.Granulocyte0.00 k/uLNormal0.00-0.30[facility] CenterComment on above:Performed By: #### ERTPF, CONNER, LIP, LIVP, TEGCR ####[address] [address] Abs.Neutrophil (Seg)20.91 k/uLHigh1.8-7.7[facility] CenterComment on above:Performed By: #### ERTPF, CONNER, LIP, LIVP, TEGCR ####[address] [address] Basophils/100 WBC Auto (Bld)0 %Normal0-2MercWoodland Memorial HospitalComment on above:Performed By: #### ERTPF, CONNER, LIP, LIVP, TEGCR ####[address] [address] Eosinophils Auto #/vol (Bld)0.25 10*3/uLNormal0.0-0.4[facility] CenterComment on above: Performed By: #### ERTPF, CONNER, LIP, LIVP, TEGCR ####[address] [address] Eosinophils/100 WBC Auto (Bld)1 %Normal 1-4[facility] CenterComment on above:Performed By: #### ERTPF, CONNER, LIP, LIVP, TEGCR ####[address] [address] Immature granulocytes #/vol (Bld)0 %Bryoxo1PjlznScripps Mercy HospitalComment on above:Performed By: #### ERTPF, CONNER, LIP, LIVP, TEGCR ####[address] [address] Lymphocytes Auto #/vol (Bld)2.21 10*3/uLNormal1.0-4.8[facility] CenterComment on above:Performed By: #### ERTPF, CONNER, LIP, LIVP, TEGCR ####[address] [address] Lymphocytes/100 WBC Auto (Bld)9 %Pjp47-94SmzrtUniversity Hospitals Tripoint Medical CenterComment on above:Performed By: #### ERTPF, CONNER, LIP, LIVP, TEGCR ####[address] [address] Monocytes Auto #/vol (Bld)1.23 10*3/uLHigh0.1-0.8[facility] CenterComment on above:Performed By: #### ERTPF, CONNER, LIP, LIVP, TEGCR ####[address] [address] Monocytes/100 WBC Auto (Bld)5 %Normal1-7[facility] CenterComment on above:Performed By: #### ERTPF, CONNER, LIP, LIVP, TEGCR ####[address] [address] Morphology Interp Eduard (Bld)ANISOCYTOSIS PRESENTNormalUniversity Hospitals Tripoint Medical CenterComment on above: Result Comment: TOXIC GRANULATION PRESENTPerformed By: #### ERTPF, CONNER, LIP, LIVP, TEGCR ####[address] [address] Neutrophil (Seg)85 %Uvtm54-47YzcegUniversity Hospitals Tripoint Medical CenterComment on above: Performed By: #### ERTPF, CONNER, LIP, LIVP, TEGCR ####[address] [address] Nucleated RBC/100 WBC Ratio (Bld)1 per 100 PFDYung6FwfziUniversity Hospitals Tripoint Medical CenterComment on above:Performed By: #### ERTPF, CONNER, LIP, LIVP, TEGCR ####[address] [address] Erythrocyte distribution width Auto Ratio (RBC)17.1 %High 11.8-14.4[facility] CenterComment on above:Performed By: #### ERTPF, CONNER, LIP, LIVP, TEGCR ####[address] [address] Hematocrit Auto Volume Fraction (Bld)27.6 %Low40.7-50.3MercWoodland Memorial HospitalComment on above:Performed By: #### ERTPF, CONNER, LIP, LIVP, TEGCR ####[address] [address] Hemoglobin mass conc (Bld)8.4 g/dLLow13.0-17.0[facility] Comment on above:Performed By: #### ERTPF, CONNER, LIP, LIVP, TEGCR ####[address] [address] MCH Auto Entitic mass (RBC)30.3 poWjqdup12.2-33.5[facility] CenterComment on above: Performed By: #### ERTPF, CONNER, LIP, LIVP, TEGCR ####[address] [address] MCHC Auto mass conc (RBC)30.4 g/dLNormal 28.4-34.8[facility] CenterComment on above:Performed By: #### ERTPF, CONNER, LIP, LIVP, TEGCR ####[address] [address] MCV Auto Entitic volume (RBC)99.6 zILjyrqe78.6-102.9[facility] CenterComment on above:Performed By: #### ERTPF, CONNER, LIP, LIVP, TEGCR ####[address] [address] NRBC Automated0.0 per 100 WBCNormal0.0[facility] CenterComment on above:Performed By: #### ERTPF, CONNER, LIP, LIVP, TEGCR ####[address] [address] Platelet mean volume Auto Entitic volume (Bld)10.9 fLNormal8.1-13.5[facility] CenterComment on above: Performed By: #### ERTPF, CONNER, LIP, LIVP, TEGCR ####[address] [address] Platelets Auto #/vol (Bld)738 10*3/uLHigh 138-453[facility] CenterComment on above:Performed By: #### ERTPF, CONNER, LIP, LIVP, TEGCR ####[address] [address] RBC Auto #/vol (Bld)2.77 10*6/uLLow4.21-5.77[facility] CenterComment on above:Performed By: #### ERTPF, CONNER, LIP, LIVP, TEGCR ####[address] [address] WBC Auto #/vol (Bld)24.6 10*3/uLHigh3.5-11.3MLos Alamitos Medical CenterComment on above: Performed By: #### ERTPF, CONNER, LIP, LIVP, TEGCR ####[address] [address] Auto Diff PerformedNOT REPORTEDNoal [facility] CenterComment on above:Performed By: #### ERTPF, CONNER, LIP, LIVP, TEGCR ####[address] 43[address] Platelets Auto #/vol (Bld)NOT REPORTEDNormalUniversity Hospitals Tripoint Medical CenterComment on above:Performed By: #### ERTPF, CONNER, LIP, LIVP, TEGCR ####[facility] [address]fr[address] [place] [address] RBC morphology finding Nom (Bld)NOT REPORTEDNoThe MetroHealth SystemComment on above:Performed By: #### ERTPF, CONNER, LIP, LIVP, TEGCR ####[facility] [address] [place] [address] WBC MorphologyNOT REPORTEDNoThe MetroHealth SystemComment on above:Performed By: #### ERTPF, CONNER, LIP, LIVP, TEGCR ####[facility] [address] [place] [address] CT ABDOMEN PELVIS W IV CONTRASTon [id number] ABDOMEN PELVIS W IV CONTRAST EXAMINATION:CT OF [...] reflux.Interpreted by:NADEGE Escalanteigned by:Cassie Torres MD01/29/18inal resultNormalMercy Community Regional Medical CenterTriglycerideson 75-66-4506Ncavwxpfrdxi mass skzm830 mg/dLNormal<150[facility] Medical CenterComment on above:Result Comment: Triglyceride Guidelines: <150 Desirable 150-199 Borderline 200-499 High >499 Very high Based on AHA Guidelines for fasting triglyceride, February 2012.Performed By: #### ERTPF, CONNER, LIP, LIVP, TEGCR ####Ens[address] [place] [address] [phone] Triglyceride mass janj565 mg/dLNormal<150Mer[facility] Medical CenterComment on above:Result Comment: Triglyceride Guidelines: <150 Desirable 150-199 Borderline 200-499 High >499 Very high Based on AHA Guidelines for fasting triglyceride, February 2012.Performed By: #### ERTPF, CONNER, LIP, LIVP, TEGCR ####Ens[address] [place] [address] [phone] XR CHEST PORTABLEon [id number] CHEST PORTABLEEXAMINATION:SINGLE XRAY VIEW OF THE CHEST01/29/2018 [...] atelectasis.2. Emphysema.Interpreted by:NADEGE Braunigned by:Cassie Albarado MD01/29/18Final resultNormalMerScripps Mercy HospitalBasic Metabolic Profon 01-28-2018(cont.)NormalUniversity Hospitals Tripoint Medical CenterComment on above:Result Comment: Average GFR for 50-59 years old: 93 mL/min/1.73sq mChronic Kidney Disease: <60 mL/min/1.73sq mKidney failure: <15 mL/min/1.73sq meGFR calculated using average adult body mass. Additional eGFR calculator available at:http://www.raksul/multiple_crcl_2011.htmPerformed By: #### ERTPF, CONNER, LIP, LIVP, TEGCR ####[address] [address] Anion gap 3 molar conc12 mmol/LNormal9-17[facility] CenterComment on above:Performed By: #### ERTPF, CONNER, LIP, LIVP, TEGCR ####[address] [place] [address] Calcium mass conc7.7 mg/dLLow8.6-10.4[facility] CenterComment on above: Performed By: #### ERTPF, CONNER, LIP, LIVP, TEGCR ####[facility] [address] [place] [address] Chloride molar ztyb385 mmol/REwfthe52-774 [facility] CenterComment on above:Performed By: #### ERTPF, CONNER, LIP, LIVP, TEGCR ####[facility] [address] [place] [address] QP2 molar conc29 mmol/EQzynqt41-08QoamhUniversity Hospitals Tripoint Medical Center Comment on above:Performed By: #### ERTPF, CONNER, LIP, LIVP, TEGCR ####[facility] [address] [place] [address] Creatinine mass conc1.67 mg/dLHigh0.70-1.20[facility] CenterComment on above:Performed By: #### ERTPF, CONNER, LIP, LIVP, TEGCR ####[facility] [address] [place] [address] GFR, Amer52 mL/minLow>60MerScripps Mercy HospitalComment on above:Performed By: #### ERTPF, CONNER, LIP, LIVP, TEGCR ####[facility] [address] [place] [address] GFR,non Amer43 mL/minLow>60[facility] CenterComment on above: Performed By: #### ERTPF, CONNER, LIP, LIVP, TEGCR ####[facility] [address] [place] [address] Glucose mass eyxp600 mg/yBTrxf18-56YujdkLos Alamitos Medical CenterComment on above:Performed By: #### ERTPF, CONNER, LIP, LIVP, TEGCR ####[address] [address] Potassium molar conc3.4 mmol/LLow3.7-5.3[facility] hospitaly [facility] Medical CenterComment on above:Performed By: #### ERTPF, CONENR, LIP, LIVP, TEGCR ####[facility] [address] [place] [address] Sodium molar idcw547 mmol/VLyxv872-642VexneUniversity Hospitals Tripoint Medical CenterComment on above:Performed By: #### ERTPF, CONNER, LIP, LIVP, TEGCR ####[facility] [address] [place] [address] Urea nitrogen mass conc35 mg/dLHigh6-20[facility] CenterComment on above:Performed By: #### ERTPF, CONNER, LIP, LIVP, TEGCR ####[address] [place] [address] BUN/CRE Ratio NOT REPORTEDNormal9-20[facility] CenterComment on above:Performed By: #### ERTPF, CONNER, LIP, LIVP, TEGCR ####[address] [address] Staging:NOT REPORTEDNormalUniversity Hospitals Tripoint Medical CenterComment on above:Performed By: #### ERTPF, CONNER, LIP, LIVP, TEGCR ####[address] [address] (cont.)Normal [facility] Medical CenterComment on above:Result Comment: Average GFR for 50-59 years old: 93 mL/min/1.73sq mChronic Kidney Disease: <60 mL/min/1.73sq mKidney failure: <15 mL/min/1.73sq meGFR calculated using average adult body mass. Additional eGFR calculator available at:http://www.raksul/multiple_crcl_2012.htmPerformed By: #### ERTPF, CONNER, LIP, LIVP, TEGCR ####[address] [address] Anion gap 3 molar conc11 mmol/LNormal9-17[facility] CenterComment on above:Performed By: #### ERTPF, CONNER, LIP, LIVP, TEGCR ####[address] [place] [address] Calcium mass conc8.2 mg/dLLow8.6-10.4[facility] CenterComment on above: Performed By: #### ERTPF, CONNER, LIP, LIVP, TEGCR ####[address] [place] [address] Chloride molar conc99 mmol/BSfckxs14-312 [facility] CenterComment on above:Performed By: #### ERTPF, CONNER, LIP, LIVP, TEGCR ####[address] [address] MR1 molar conc32 mmol/MVyib37-22OxlfbUniversity Hospitals Tripoint Medical Center Comment on above:Performed By: #### ERTPF, CONNER, LIP, LIVP, TEGCR ####[facility] [address] [place] [address] Creatinine mass conc1.81 mg/dLHigh0.70-1.20[facility] CenterComment on above:Performed By: #### ERTPF, CONNER, LIP, LIVP, TEGCR ####[address] [address] GFR, Amer47 mL/minLow>60[facility] CenterComment on above:Performed By: #### ERTPF, CONNER, LIP, LIVP, TEGCR ####[address] [address] GFR,non Amer39 mL/minLow>60[facility] CenterComment on above: Performed By: #### ERTPF, CONNER, LIP, LIVP, TEGCR ####[address] [address] Glucose mass qoaz552 mg/mWTiri90-52LardcLos Alamitos Medical CenterComment on above:Performed By: #### ERTPF, CONNER, LIP, LIVP, TEGCR ####[address] [address] Potassium molar conc4.7 mmol/LNormal3.7-5.3MLos Alamitos Medical Center Comment on above:Performed By: #### ERTPF, CONNER, LIP, LIVP, TEGCR ####[facility] [address] [place] [address] Sodium molar qgnq518 mmol/FCrmfls004-686SbhbrUniversity Hospitals Tripoint Medical CenterComment on above:Performed By: #### ERTPF, CONNER, LIP, LIVP, TEGCR ####[address] [phone] nitrogen mass conc39 mg/dLHigh6-20[facility] CenterComment on above:Performed By: #### ERTPF, CONNER, LIP, LIVP, TEGCR ####[address] [address] BUN/CRE RatioNOT REPORTEDNoal9-20[facility] CenterComment on above:Performed By: #### ERTPF, CONNER, LIP, LIVP, TEGCR ####[address] [address] Staging:NOT REPORTEDNormalUniversity Hospitals Tripoint Medical CenterComment on above:Performed By: #### ERTPF, CONNER, LIP, LIVP, TEGCR ####[address] [address] C- Reactive Proteinon [id number] mass oijt861.1 mg/LHigh0.0-5.0[facility] CenterComment on above:Result Comment: ADDED ONPerformed By: #### ERTPF, CONNER, LIP, LIVP, TEGCR ####[address] [address] CBC with Diffon [id number]. Basophil0.00 k/uLNormal0.0-0.2 [facility] CenterComment on above:Performed By: #### ERTPF, CONNER, LIP, LIVP, TEGCR ####[address] [address] Abs.Imm.Granulocyte0.00 k/uLNormal0.00-0.30[facility] CenterComment on above:Performed By: #### ERTPF, CONNER, LIP, LIVP, TEGCR ####[address] [address] Abs.Neutrophil (Seg)29.16 k/uLHigh1.8-7.7[facility] CenterComment on above: Performed By: #### ERTPF, CONNER, LIP, LIVP, TEGCR ####[address] [address] Basophils/100 WBC Auto (Bld)0 %Normal0-2 [facility] CenterComment on above:Performed By: #### ERTPF, CONNER, LIP, LIVP, TEGCR ####[address] [address] Eosinophils Auto #/vol (Bld)0.00 10*3/uLNormal0.0-0.4[facility] CenterComment on above:Performed By: #### ERTPF, CONNER, LIP, LIVP, TEGCR ####[place] [id number] Eosinophils/100 WBC Auto (Bld)0 %Low1-4[facility] CenterComment on above:Performed By: #### ERTPF, CONNER, LIP, LIVP, TEGCR ####[address] [address] Immature granulocytes #/vol (Bld)0 %Ncqrkb8TzbszUniversity Hospitals Tripoint Medical CenterComment on above:Performed By: #### ERTPF, CONNER, LIP, LIVP, TEGCR ####[address] [address] Lymphocytes Auto #/vol (Bld)1.62 10*3/uLNormal 1.0-4.8[facility] CenterComment on above:Performed By: #### ERTPF, CONNER, LIP, LIVP, TEGCR ####[address] [address] Lymphocytes/100 WBC Auto (Bld)5 %Ukc93-39DllmrUniversity Hospitals Tripoint Medical CenterComment on above:Performed By: #### ERTPF, CONNER, LIP, LIVP, TEGCR ####[address] [address] Monocytes Auto #/vol (Bld)1.62 10*3/uLHigh0.1-0.8[facility] CenterComment on above:Performed By: #### ERTPF, CONNER, LIP, LIVP, TEGCR ####[address] [address] Monocytes/100 WBC Auto (Bld)5 %Normal1-7 [facility] CenterComment on above:Performed By: #### ERTPF, CONNER, LIP, LIVP, TEGCR ####[address] [address] Morphology Interp Eduard (Bld)ANISOCYTOSIS PRESENTNormalUniversity Hospitals Tripoint Medical CenterComment on above:Result Comment: INCREASED BANDS PRESENT Performed By: #### ERTPF, CONNER, LIP, LIVP, TEGCR ####[address] [address] Neutrophil (Seg)90 %Wivj33-04KpnoaUniversity Hospitals Tripoint Medical CenterComment on above:Performed By: #### ERTPF, CONNER, LIP, LIVP, TEGCR ####[address] [address] WBC Auto #/vol (Bld)32.4 10*3/uLCritically high3.5-11.3MLos Alamitos Medical CenterComment on above:Result Comment: TESTCONFIRMEDPerformed By: #### ERTPF, CONNER, LIP, LIVP, TEGCR ####[address] [address] Erythrocyte distribution width Auto Ratio (RBC)16.6 %High11.8-14.4 [facility] CenterComment on above:Performed By: #### ERTPF, CONNER, LIP, LIVP, TEGCR ####[address] 43[address] [phone] Auto Volume Fraction (Bld)30.3 %Low40.7-50.3MLos Alamitos Medical CenterComment on above:Performed By: #### ERTPF, CONNER, LIP, LIVP, TEGCR ####[address] [address] Hemoglobin mass conc (Bld)9.6 g/dLLow13.0-17.0[facility] Comment on above:Performed By: #### ERTPF, CONNER, LIP, LIVP, TEGCR ####[address] [address] MC Auto Entitic mass (RBC)30.6 ugGflhbu58.2-33.5[facility] CenterComment on above: Performed By: #### ERTPF, CONNER, LIP, LIVP, TEGCR ####[address] [address] MCHC Auto mass conc (RBC)31.7 g/dLNormal 28.4-34.8[facility] CenterComment on above:Performed By: #### ERTPF, CONNER, LIP, LIVP, TEGCR ####[address] [address] MCV Auto Entitic volume (RBC)96.5 bBLiglfn70.6-102.9[facility] CenterComment on above:Performed By: #### ERTPF, CONNER, LIP, LIVP, TEGCR ####[facility] [address]ogs[address] [place] [address] NRBC Automated0.0 per 100 WBCNormal0.0[facility] CenterComment on above:Performed By: #### ERTPF, CONNER, LIP, LIVP, TEGCR ####[place] [address] Platelet mean volume Auto Entitic volume (Bld)10.9 fLNormal8.1-13.5[facility] CenterComment on above: Performed By: #### ERTPF, CONNER, LIP, LIVP, TEGCR ####[place] [address] Platelets Auto #/vol (Bld)642 10*3/uLHigh 138-453MerScripps Mercy HospitalComment on above:Performed By: #### ERTPF, CONNER, LIP, LIVP, TEGCR ####[place] [address] RBC Auto #/vol (Bld)3.14 10*6/uLLow4.21-5.77[facility] CenterComment on above:Performed By: #### ERTPF, CONNER, LIP, LIVP, TEGCR ####[place] [address] Auto Diff PerformedNOT REPORTEDNormalUniversity Hospitals Tripoint Medical CenterComment on above: Performed By: #### ERTPF, CONNER, LIP, LIVP, TEGCR ####[place] [address] Platelets Auto #/vol (Bld)NOT REPORTED NormalUniversity Hospitals Tripoint Medical CenterComment on above:Performed By: #### ERTPF, CONNER, LIP, LIVP, TEGCR ####[address] [place] [address] [address] RBC morphology finding Nom (Bld)NOT REPORTEDNoThe MetroHealth SystemComment on above:Performed By: #### ERTPF, CONNER, LIP, LIVP, TEGCR ####[address] [place] [address] WBC MorphologyNOT REPORTEDNoThe MetroHealth SystemComment on above: Performed By: #### ERTPF, CONNER, LIP, LIVP, TEGCR ####[facility] [address] [place] [address] CT ABDOMEN PELVIS W IV CONTRASTon [id number] ABDOMEN PELVIS W IV CONTRASTEXAMINATION:CT OF THE [...] for pneumatosis.Interpreted by:NADEGE Dormanigned by:Hudson Anaya MD01/27/inal resultNormalMerScripps Mercy HospitalLiver Profileon 08-31-3916Bqmqqzy mass conc2.5 g/dLLow 3.5-5.2MLos Alamitos Medical CenterComment on above:Performed By: #### ERTPF, CONNER, LIP, LIVP, TEGCR ####[address] [address] Albumin/Globulin mass ratio0.7 {ratio}Low1.0-2.5[facility] CenterComment on above:Performed By: #### ERTPF, CONNER, LIP, LIVP, TEGCR ####[address] [address] Alkaline Phos77 U/MLcnxqu63-831YakhrUniversity Hospitals Tripoint Medical CenterComment on above: Performed By: #### ERTPF, CONNER, LIP, LIVP, TEGCR ####[address] [address] ALT enzyme act/vol25 U/LNormal5-41[facility] CenterComment on above:Performed By: #### ERTPF, CONNER, LIP, LIVP, TEGCR ####[address] [address] AST enzyme act/vol55 U/LHigh<40MerScripps Mercy HospitalComment on above: Performed By: #### ERTPF, CONNER, LIP, LIVP, TEGCR ####[address] [place] [address] Bilirubin Ql (U)1.32 mg/dLHigh0.3-1.2 [facility] CenterComment on above:Performed By: #### ERTPF, CONNER, LIP, LIVP, TEGCR ####[address] [address] Bilirubin, Indirect0.59 mg/dLNormal0.00-1.00[facility] CenterComment on above:Performed By: #### ERTPF, CONNER, LIP, LIVP, TEGCR ####[address] [address] Bilirubin.direct mass conc0.73 mg/dLHigh<0.31[facility] Comment on above:Performed By: #### ERTPF, CONNER, LIP, LIVP, TEGCR ####[address] [address] Protein mass conc6.3 g/dLLow6.4-8.3[facility] Regional Medical CenterComment on above:Performed By: #### ERTPF, CONNER, LIP, LIVP, TEGCR ####[address] [address] Globulin Calculated mass conc (S)NOT REPORTEDNormal1.5-3.8 [facility] CenterComment on above:Performed By: #### ERTPF, CONNER, LIP, LIVP, TEGCR ####[address] [address] [phone] 20-73-4264Dntkkwlte mass conc2.7 mg/dLHigh1.6-2.6MercWoodland Memorial HospitalComment on above:Performed By: #### ERTPF, CONNER, LIP, LIVP, TEGCR ####[address] [address] Phosphorus, Inorg.on 83-76-4344Jdqrropxsj, Inorg.3.6 mg/dLNormal2.5-4.5[facility] CenterComment on above:Performed By: #### ERTPF, CONNER, LIP, LIVP, TEGCR ####[facility] [employer] [place] [address] Prealbuminon 56-81-6862Zwdzopvycp mass conc4.8 mg/sOKyo01-25KpgxtUniversity Hospitals Tripoint Medical CenterComment on above:Performed By: #### ERTPF, CONNER, LIP, LIVP, TEGCR ####[facility] [address] [place] [address] TSH w/reflex to FT4on 94-19-9596Krklhjxvtbj Qn2.70 m[IU]/LNormal0.30-5.00[facility] CenterComment on above:Performed By: #### ERTPF, CONNER, LIP, LIVP, TEGCR ####[address] [place] [address] Transferrinon 44-14-5222Rrzzvtpordg mass iieb911 mg/pMJnz127-517QdpyfUniversity Hospitals Tripoint Medical CenterComment on above:Performed By: #### ERTPF, CONNER, LIP, LIVP, TEGCR ####[facility] [address] [place] [address] [phone] XR CHEST PORTABLEon [id number] CHEST PORTABLEEXAMINATION:SINGLE XRAY VIEW OF THE CHEST, [...] correlate clinically.Interpreted by:NADEGE Lancasterigned by:Hebert Best MD01/28/18Final resultNormalUniversity Hospitals Tripoint Medical CenterBasic Metabolic Profon 01-27-2018(cont.)NormalUniversity Hospitals Tripoint Medical CenterComment on above:Result Comment: Average GFR for 50-59 years old: 93 mL/min/1.73sq mChronic Kidney Disease: <60 mL/min/1.73sq mKidney failure: <15 mL/min/1.73sq meGFR calculated using average adult body mass. Additional eGFR calculator available at:http://www.raksul/multiple_crcl_2012.htmPerformed By: #### ERTPF, CONNER, LIP, LIVP, TEGCR ####[facility]St[facility] [address] [place] [address] Anion gap 3 molar conc12 mmol/LNormal9-17[facility] CenterComment on above:Performed By: #### ERTPF, CONNER, LIP, LIVP, TEGCR ####[facility] [address]evcunjc[address] [place] [address] Calcium mass conc8.9 mg/dLNormal8.6-10.4[facility] CenterComment on above: Performed By: #### ERTPF, CONNER, LIP, LIVP, TEGCR ####[facility] [address]adhyh[address] [place] [address] Chloride molar lzeq481 mmol/HKrqdzz86-297 [facility] CenterComment on above:Performed By: #### ERTPF, CONNER, LIP, LIVP, TEGCR ####[facility]St[facility] [address]qyeljtw[address] [place], [place] [address] JY5 molar conc31 mmol/ABvwhrp39-39KdnegUniversity Hospitals Tripoint Medical Center Comment on above:Performed By: #### ERTPF, CONNER, LIP, LIVP, TEGCR ####[facility] [address]wl[address] [place] [address] Creatinine mass conc1.26 mg/dLHigh0.70-1.20[facility] CenterComment on above:Performed By: #### ERTPF, CONNER, LIP, LIVP, TEGCR ####[facility] Yxcqievigfse8286 [place] [address] GFR, Amer>60Normal>60[facility]point Medical CenterComment on above:Performed By: #### ERTPF, CONNER, LIP, LIVP, TEGCR ####[facility] Kvxsfhkvkgef[address]01 [place] [address] GFR,non Amer59 mL/minLow>60[facility] CenterComment on above: Performed By: #### ERTPF, CONNER, LIP, LIVP, TEGCR ####[facility] [address] [place] [address] Glucose mass ghgw242 mg/nGDlht43-64IjktpLos Alamitos Medical CenterComment on above:Performed By: #### ERTPF, CONNER, LIP, LIVP, TEGCR ####[facility] Jslidxjrihkv5034 [place] [address] Potassium molar conc3.9 mmol/LNormal3.7-5.3[facility] Comment on above:Performed By: #### ERTPF, CONNER, LIP, LIVP, TEGCR ####[facility] Xagoinujoind0593 [place] [address] Sodium molar xxgo677 mmol/PPsfcwh284-439HxdutUniversity Hospitals Tripoint Medical CenterComment on above:Performed By: #### ERTPF, CONNER, LIP, LIVP, TEGCR ####[facility] Qfpdwrqqftwh9553 [place] [address] Urea nitrogen mass conc27 mg/dLHigh6-20[facility] CenterComment on above:Performed By: #### ERTPF, CONNER, LIP, LIVP, TEGCR ####Sarithaernie [address] [place] [address] BUN/CRE RatioNOT REPORTEDNormal9-20[facility] CenterComment on above:Performed By: #### ERTPF, CONNER, LIP, LIVP, TEGCR ####[place], [place] [phone]:NOT REPORTEDNormalUniversity Hospitals Tripoint Medical CenterComment on above:Performed By: #### ERTPF, CONNER, LIP, LIVP, TEGCR ####Filomena [address] [place], [place] [phone] with Diffon [id number]. Basophil0.00 k/uLNormal0.0-0.2MLos Alamitos Medical CenterComment on above:Performed By: #### ERTPF, CONNER, LIP, LIVP, TEGCR ####[place] [address] Abs.Imm.Granulocyte0.24 k/uLNormal0.00-0.30[facility] Comment on above:Performed By: #### ERTPF, CONNER, LIP, LIVP, TEGCR ####[facility] [place], [place] [phone].Neutrophil (Seg) 19.29 k/uLHigh1.8-7.7[facility] CenterComment on above:Performed By: #### ERTPF, CONNER, LIP, LIVP, TEGCR ####[facility] [address] [place], [place] [phone]/100 WBC Auto (Bld)0 %Normal0-2MercWoodland Memorial HospitalComment on above:Performed By: #### ERTPF, CONNER, LIP, LIVP, TEGCR ####[address] [address] Eosinophils Auto #/vol (Bld)0.96 10*3/uLHigh0.0-0.4[facility] Medical CenterComment on above:Performed By: #### ERTPF, CONNER, LIP, LIVP, TEGCR ####[address] [address] Eosinophils/100 WBC Auto (Bld)4 %Normal1-4[facility] CenterComment on above:Performed By: #### ERTPF, CONNER, LIP, LIVP, TEGCR ####[place] [address] Immature granulocytes #/vol (Bld)1 %Mdar6AwwfuUniversity Hospitals Tripoint Medical CenterComment on above:Performed By: #### ERTPF, CONNER, LIP, LIVP, TEGCR ####[place] [address] Lymphocytes Auto #/vol (Bld)2.65 10*3/uLNormal1.0-4.8[facility] CenterComment on above:Performed By: #### ERTPF, CONNER, LIP, LIVP, TEGCR ####[place] [address] Lymphocytes/100 WBC Auto (Bld)11 %Oru41-42CluhmUniversity Hospitals Tripoint Medical CenterComment on above:Performed By: #### ERTPF, CONNER, LIP, LIVP, TEGCR ####[address] [address] Monocytes Auto #/vol (Bld)0.96 10*3/uLHigh 0.1-0.8[facility] Medical CenterComment on above:Performed By: #### ERTPF, CONENR, LIP, LIVP, TEGCR ####[address] [address] Monocytes/100 WBC Auto (Bld)4 %Normal1-7[facility] Medical CenterComment on above:Performed By: #### ERTPF, CONNER, LIP, LIVP, TEGCR ####[facility] Nlwihyswsilk0209 [place] [address] Morphology Interp Eduard (Bld)ANISOCYTOSIS PRESENTNormalUniversity Hospitals Tripoint [facility] Center Comment on above:Result Comment: INCREASED BANDS PRESENTTOXIC GRANULATION PRESENTPerformed By: #### ERTPF, CONNER, LIP, LIVP, TEGCR ####[facility] Ffaoewxxcidp[address] [place] [address] Neutrophil (Seg)80 %High 36-66[facility] Medical CenterComment on above:Performed By: #### ERTPF, CONNER, LIP, LIVP, TEGCR ####[facility] [address]qq[address] [place] [address] 43[address] Nucleated RBC/100 WBC Ratio (Bld)1 per 100 LVAKfkd6GzxwzUniversity Hospitals Tripoint Medical CenterComment on above:Performed By: #### ERTPF, CONNER, LIP, LIVP, TEGCR ####[facility] Vhmiaxpaayeo1335 [place] [address] Erythrocyte distribution width Auto Ratio (RBC)16.1 %High11.8-14.4[facility] CenterComment on above:Performed By: #### ERTPF, CONNER, LIP, LIVP, TEGCR ####[facility] Rphbfvlsowdf7517 [place] [address] Hematocrit Auto Volume Fraction (Bld)31.8 %Low40.7-50.3MLos Alamitos Medical CenterComment on above:Performed By: #### ERTPF, CONNER, LIP, LIVP, TEGCR ####[facility] Mgspmbsfyguv2550 [place] [address] Hemoglobin mass conc (Bld)10.1 g/dLLow13.0-17.0[facility] CenterComment on above:Performed By: #### ERTPF, CONNER, LIP, LIVP, TEGCR ####[facility] Arnz[address]def[address] [place] [address] MCH Auto Entitic mass (RBC)30.5 pgNormal 25.2-33.5[facility] CenterComment on above:Performed By: #### ERTPF, CONNER, LIP, LIVP, TEGCR ####[facility] [address]ayhrvy[address] [place] [address] MCHC Auto mass conc (RBC)31.8 g/lRPnoagt43.4-34.8[facility] CenterComment on above:Performed By: #### ERTPF, CONNER, LIP, LIVP, TEGCR ####[place] [address] MCV Auto Entitic volume (RBC)96.1 sCOwbhgv83.6-102.9[facility] Comment on above:Performed By: #### ERTPF, CONNER, LIP, LIVP, TEGCR ####[place] [address] NRBC Automated0.1 per 100 WBCHigh0.0[facility] Medical CenterComment on above:Performed By: #### ERTPF, CONNER, LIP, LIVP, TEGCR ####[facility] [address]vjxudmww[address] [place] [address] Platelet mean volume Auto Entitic volume (Bld)11.0 fLNormal 8.1-13.5[facility] CenterComment on above:Performed By: #### ERTPF, CONNER, LIP, LIVP, TEGCR ####[place] [address] Platelets Auto #/vol (Bld)488 10*3/gYLolc886-996MznrvScripps Mercy HospitalComment on above:Performed By: #### ERTPF, CONNER, LIP, LIVP, TEGCR ####[facility] Dvtlcweltbzo[address] [place] [address] RBC Auto #/vol (Bld)3.31 10*6/uLLow4.21-5.77MerScripps Mercy HospitalComment on above:Performed By: #### ERTPF, CONNER, LIP, LIVP, TEGCR ####[facility] [address]zdpgffjly[address] [place] [address] WBC Auto #/vol (Bld)24.1 10*3/uLHigh3.5-11.3MercWoodland Memorial HospitalComment on above:Performed By: #### ERTPF, CONNER, LIP, LIVP, TEGCR ####[address] [address] Auto Diff PerformedNOT REPORTEDFairfield Medical CenterComment on above:Performed By: #### ERTPF, CONNER, LIP, LIVP, TEGCR ####[address] [address] Platelets Auto #/vol (Bld)NOT REPORTEDFairfield Medical Center Comment on above:Performed By: #### ERTPF, CONNER, LIP, LIVP, TEGCR ####[facility] [address]in[address] [place] [address] RBC morphology finding Nom (Bld)NOT REPORTEDFairfield Medical CenterComment on above: Performed By: #### ERTPF, CONNER, LIP, LIVP, TEGCR ####[facility] [address] [address] WBC MorphologyNOT REPORTEDFairfield Medical CenterComment on above:Performed By: #### ERTPF, CONNER, LIP, LIVP, TEGCR ####[facility] [address]jslkfwq[address] [place] [address] Magnesiumon 64-83-7177Stpsmuodj mass conc2.6 mg/dLNormal1.6-2.6[facility] Medical CenterComment on above:Performed By: #### ERTPF, CONNER, LIP, LIVP, TEGCR ####Sarithay [address]hr[address] [place] [address] Phosphorus, Inorg.on 45-70-3703Wkwsfhahdd, Inorg.4.5 mg/dLNormal2.5-4.5MerScripps Mercy HospitalComment on above:Performed By: #### ERTPF, CONNER, LIP, LIVP, TEGCR ####[facility] Yfrygiuppvih[address] [place] [address] Vancomycin,Randomon 97-23-1262Adlcdujvfu98.1 ug/mLNormalUniversity Hospitals Tripoint Medical CenterComment on above:Result Comment: Higher trough serum vancomycin concentrations of 15-20 ug/mL are recommended for complicated infections such as bacteremia, endocarditis, osteomyelitis, meningitis, and hospital acquired pneumonia.Performed By: #### ERTPF, CONNER, LIP, LIVP, TEGCR ####[facility] [address]ikuluwwchyy[address] [place] [address] Date last dose,NOT REPORTEDNormalUniversity Hospitals Tripoint Medical CenterComment on above:Performed By: #### ERTPF, CONNER, LIP, LIVP, TEGCR ####[facility] Ervrapxirnnr[address] [place] [address] Dose amount,NOT REPORTEDNormSouthwest General Health CenterComment on above:Performed By: #### ERTPF, CONNER, LIP, LIVP, TEGCR ####[facility] Jfpjamrvmtuw[address] [place] [address] Time last dose,NOT REPORTEDNormalUniversity Hospitals Tripoint Medical CenterComment on above:Performed By: #### ERTPF, CONNER, LIP, LIVP, TEGCR ####[facility] Xzyoiznjubkn8330 [place] [address] XR ABDOMEN (KUB) (SINGLE AP VIEW)on 06-03-8299XE ABDOMEN (KUB) (SINGLE AP VIEW)EXAMINATION:SINGLE SUPINE XRAY [...] pulmonaryopacities.Interpreted by:NADEGE Gabrieligned by:Molly Moreno MD01/27/18inal resultNormalMercy Community Regional Medical CenterXR ABDOMEN (KUB) (SINGLE AP VIEW)EXAMINATION:SINGLE SUPINE XRAY [...] a licensed caregiver.Interpreted by:Mcclainigned by:Cecile García, DO01/27/18Final resultNormalUniversity Hospitals Tripoint Medical CenterXR LUMBAR SPINE (2-3 VIEWS)on 38-41-7876QK LUMBAR SPINE (2-3 VIEWS)EXAMINATION:3 XRAY VIEWS OF [...] ileus.Interpreted by:Fidel Marley MDSigned by:Fidel Marley MD01/27/18Final resultNormalMerScripps Mercy HospitalBasic Metabolic Profon 01-26-2018(cont.)NormalMercy Community Regional Medical CenterComment on above: Result Comment: Average GFR for 50-59 years old: 93 mL/min/1.73sq mChronic Kidney Disease: <60 mL/min/1.73sq mKidney failure: <15 mL/min/1.73sq meGFR calculated using average adult body mass. Additional eGFR calculator available at:http://www.NetShoes.StylePuzzle/multiple_crcl_2012.htmPerformed By: #### ERTPF, CONNER, LIP, LIVP, TEGCR ####[place] [address] [place] [address] Anion gap 3 molar conc13 mmol/LNormal9-17[facility] Medical CenterComment on above:Performed By: #### ERTPF, CONNER, LIP, LIVP, TEGCR ####[facility] Zcsogyglenjl3455 [place] [address] Calcium mass conc8.3 mg/dLLow8.6-10.4[facility] CenterComment on above: Performed By: #### ERTPF, CONNER, LIP, LIVP, TEGCR ####[facility] Odntngrkyned5117 [place] [address] Chloride molar conc95 mmol/FOfx79-902 [facility] CenterComment on above:Performed By: #### ERTPF, CONNER, LIP, LIVP, TEGCR ####[facility] Jrqpojvsdusq2729 [place] [address] KF4 molar conc31 mmol/YBbnvad80-46HigehUniversity Hospitals Tripoint Medical Center Comment on above:Performed By: #### ERTPF, CONNER, LIP, LIVP, TEGCR ####[facility] Zyjbriolsusr8011 [place] [address] Creatinine mass conc1.14 mg/dLNormal0.70-1.20[facility] CenterComment on above:Performed By: #### ERTPF, CONNER, LIP, LIVP, TEGCR ####[place] [address] [place] [address] GFR, Amer>60Normal>60[facility] CenterComment on above:Performed By: #### ERTPF, CONNER, LIP, LIVP, TEGCR ####[facility] Fjjdswjrvdbz0797 [place] [address] GFR,non Amer>60Normal>60[facility] CenterComment on above: Performed By: #### ERTPF, CONNER, LIP, LIVP, TEGCR ####[facility] Ofjwbrqezqso0517 [place] [address] Glucose mass mhzb514 mg/cWRyvz26-05Yihay [facility] Regional Medical CenterComment on above:Performed By: #### ERTPF, CONNER, LIP, LIVP, TEGCR ####[facility] Xvaqmaktaiol0329 [place] [address] Potassium molar conc3.2 mmol/LLow3.7-5.3[facility] Medical CenterComment on above:Performed By: #### ERTPF, CONNER, LIP, LIVP, TEGCR ####[facility] Qyzrbinvbrqu5613 [place] [address] Sodium molar yrwf546 mmol/ADedqpy848-078DjuhsUniversity Hospitals Tripoint Medical CenterComment on above:Performed By: #### ERTPF, CONNER, LIP, LIVP, TEGCR ####[facility] [address]se[address]le[address] [place] [address] Urea nitrogen mass conc21 mg/dLHigh6-20[facility] CenterComment on above:Performed By: #### ERTPF, CONNER, LIP, LIVP, TEGCR ####[facility] Ynfkcftrlbgp1559 [place] [address] BUN/CRE RatioNOT REPORTEDNormal9-20[facility] CenterComment on above:Performed By: #### ERTPF, CONNER, LIP, LIVP, TEGCR ####[facility] [address]izfirqpn[address] [place] [address] Staging:NOT REPORTEDNormalUniversity Hospitals Tripoint Medical CenterComment on above:Performed By: #### ERTPF, CONNER, LIP, LIVP, TEGCR ####[facility] Wejcotxibwfk9538 [place] [address] Brain Natri. Peptideon 93-42-3673Wcnxrkgpnfn peptide B mass conc (Bld)2216 pg/mLHigh <300MerScripps Mercy HospitalComment on above:Result Comment: Pro-BNP results cannot be compared to BNP results.Performed By: #### ERTPF, CONNER, LIP, LIVP, TEGCR ####[facility] [address]kgavmvrdmpw[address] [place] [address] Natriuretic peptide B mass conc (Bld)NormalUniversity Hospitals Tripoint Medical Center Comment on above:Result Comment: Pro-BNP Reference Range:Rule Out: <300[place]rey Zone: Age <50 300-450 Age 50-75 300-900 Age >75 300-1800Usually represents mild to moderate HF but other cardiopulmonary causes cannot be ruled out.Rule In: Age <50 >450 Age 50-75 >900 Age >75 >1800Performed By: #### ERTPF, CONNER, LIP, LIVP, TEGCR ####[facility] Rnodwenffvcx[address] [place] [address] CBC with Diffon [id number]. Basophil0.00 k/uLNormal0.0-0.2MLos Alamitos Medical CenterComment on above:Performed By: #### ERTPF, CONNER, LIP, LIVP, TEGCR ####[facility] Owhleyzgedkk[address] [place] [address] Abs.Imm.Granulocyte0.00 k/uLNormal0.00-0.30[facility] CenterComment on above:Performed By: #### ERTPF, CONNER, LIP, LIVP, TEGCR ####[facility] [address]wiwctfv[address] [place] [address] Abs.Neutrophil (Seg)21.60 k/uLHigh1.8-7.7[facility] CenterComment on above:Performed By: #### ERTPF, CONNER, LIP, LIVP, TEGCR ####[facility] Ttlex[address] [place] [address] Basophils/100 WBC Auto (Bld)0 %Normal0-2MLos Alamitos Medical CenterComment on above:Performed By: #### ERTPF, CONNER, LIP, LIVP, TEGCR ####[facility] [address]vqr[address] [place] [address] Eosinophils Auto #/vol (Bld)0.00 10*3/uLNormal0.0-0.4[facility] CenterComment on above: Performed By: #### ERTPF, CONNER, LIP, LIVP, TEGCR ####[address] [address] Eosinophils/100 WBC Auto (Bld)0 %Low1-4 [facility] CenterComment on above:Performed By: #### ERTPF, CONNER, LIP, LIVP, TEGCR ####[address] [address] Immature granulocytes #/vol (Bld)0 %Fflenz4ChqqaUniversity Hospitals Tripoint Medical CenterComment on above:Performed By: #### ERTPF, CONNER, LIP, LIVP, TEGCR ####[address] [address] Lymphocytes Auto #/vol (Bld)3.17 10*3/uLNormal1.0-4.8[facility] CenterComment on above:Performed By: #### ERTPF, CONNER, LIP, LIVP, TEGCR ####[address] [address] Lymphocytes/100 WBC Auto (Bld)11 %Oep10-97IphzbUniversity Hospitals Tripoint Medical CenterComment on above:Performed By: #### ERTPF, CONNER, LIP, LIVP, TEGCR ####[address] [address] Monocytes Auto #/vol (Bld)4.03 10*3/uLHigh0.1-0.8[facility] CenterComment on above:Performed By: #### ERTPF, CONNER, LIP, LIVP, TEGCR ####[address] [address] Monocytes/100 WBC Auto (Bld)14 %High1-7[facility] CenterComment on above:Performed By: #### ERTPF, CONNER, LIP, LIVP, TEGCR ####Sarithay Hju[address]dlbvvsr2334 [place] [address] Morphology Interp Eduard (Bld)ANISOCYTOSIS PRESENTNormalMerScripps Mercy HospitalComment on above: Result Comment: INCREASED BANDS PRESENTTOXIC GRANULATION PRESENTPerformed By: #### ERTPF, CONNER, LIP, LIVP, TEGCR ####[address] [address] Neutrophil (Seg)75 %Vuhz74-51PykozUniversity Hospitals Tripoint Medical CenterComment on above:Performed By: #### ERTPF, CONNER, LIP, LIVP, TEGCR ####[facility] [address] [place] [address] Erythrocyte distribution width Auto Ratio (RBC)16.2 %High11.8-14.4[facility] CenterComment on above:Result Comment: ADDED ONPerformed By: #### ERTPF, CONNER, LIP, LIVP, TEGCR ####[address] [address] Hematocrit Auto Volume Fraction (Bld)31.2 %Low40.7-50.3[facility] Medical CenterComment on above:Result Comment: ADDED ONPerformed By: #### ERTPF, CONNER, LIP, LIVP, TEGCR ####Sarithay Mrdbhbwloayb3107 [place] [address] Hemoglobin mass conc (Bld)10.1 g/dLLow13.0-17.0[facility] CenterComment on above:Result Comment: ADDED ONPerformed By: #### ERTPF, CONNER, LIP, LIVP, TEGCR ####[facility] [address]utagnnbpwko[address]240 [place] [address] MCH Auto Entitic mass (RBC)30.9 bcMpijcl20.2-33.5[facility] CenterComment on above:Result Comment: ADDED ONPerformed By: #### ERTPF, CONNER, LIP, LIVP, TEGCR ####[address] [address] MCHC Auto mass conc (RBC)32.4 g/fKCgrysj38.4-34.8[facility] CenterComment on above:Result Comment: ADDED ONPerformed By: #### ERTPF, CONNER, LIP, LIVP, TEGCR ####[address] [address] MCV Auto Entitic volume (RBC)95.4 xQFernum85.6-102.9[facility] CenterComment on above:Result Comment: ADDED ONPerformed By: #### ERTPF, CONNER, LIP, LIVP, TEGCR ####[place] [address] NRBC Automated0.1 per 100 WBCHigh0.0[facility] CenterComment on above:Result Comment: ADDED ONPerformed By: #### ERTPF, CONNER, LIP, LIVP, TEGCR ####[address] [address] Platelet mean volume Auto Entitic volume (Bld)11.4 fLNormal 8.1-13.5[facility] CenterComment on above:Result Comment: ADDED ONPerformed By: #### ERTPF, CONNER, LIP, LIVP, TEGCR ####[address] [address] Platelets Auto #/vol (Bld)328 10*3/uL Cogegz567-637MvficUniversity Hospitals Tripoint Medical CenterComment on above:Result Comment: ADDED ONPerformed By: #### ERTPF, CONNER, LIP, LIVP, TEGCR ####[facility] [address]iffbtqfw[address] [place] [address] RBC Auto #/vol (Bld)3.27 10*6/uLLow4.21-5.77MerScripps Mercy HospitalComment on above:Result Comment: ADDED ONPerformed By: #### ERTPF, CONNER, LIP, LIVP, TEGCR ####[facility] [address]tzgbsci[address] [place] [address] WBC Auto #/vol (Bld)28.8 10*3/uLHigh3.5-11.3[facility] CenterComment on above:Result Comment: ADDED ONPerformed By: #### ERTPF, CONNER, LIP, LIVP, TEGCR ####[address] [address] Auto Diff PerformedNOT REPORTEDFairfield Medical CenterComment on above:Performed By: #### ERTPF, CONNER, LIP, LIVP, TEGCR ####[facility] [address]psdptbhlfq[address] [place] [address] Platelets Auto #/vol (Bld)NOT REPORTEDFairfield Medical CenterComment on above:Performed By: #### ERTPF, CONNER, LIP, LIVP, TEGCR ####[facility] Sxlmmjpijggi[address] [place] [address] RBC morphology finding Nom (Bld)NOT REPORTEDNoThe [facility] Comment on above:Performed By: #### ERTPF, CONNER, LIP, LIVP, TEGCR ####[facility] [address] [place] [address] WBC MorphologyNOT REPORTEDFairfield Medical CenterComment on above:Performed By: #### ERTPF, CONNER, LIP, LIVP, TEGCR ####[facility] [address]ursu[address] [place] [address] Calcium, Ionicon 00-32-2687Pxkztvh mass conc1.22 mmol/L Normal1.13-1.33[facility] CenterComment on above:Performed By: #### ERTPF, CONNER, LIP, LIVP, TEGCR ####[facility] Fvfgtyftlipq9475 [place] [address] Calcium mass conc1.04 mmol/LLow1.13-1.33[facility] CenterComment on above:Performed By: #### ERTPF, CONNER, LIP, LIVP, TEGCR ####[address] [address] K (Potassium) on 60-36-9830Ekmxueyqh molar conc3.7 mmol/LNormal3.7-5.3MLos Alamitos Medical CenterComment on above:Performed By: #### ERTPF, CONNER, LIP, LIVP, TEGCR ####[facility] [address] [place] [address] Potassium molar conc3.2 mmol/LLow3.7-5.3MLos Alamitos Medical CenterComment on above: Performed By: #### ERTPF, CONNER, LIP, LIVP, TEGCR ####[facility] [address]afak[address]38 [place] [address] Potassium molar conc3.3 mmol/LLow3.7-5.3 [facility] CenterComment on above:Performed By: #### ERTPF, CONNER, LIP, LIVP, TEGCR ####[facility] [address]muuviuky[address] [place] [address] Magnesiumon 64-98-9772Qmyfqwogh mass conc2.2 mg/dLNormal1.6-2.6 [facility] CenterComment on above:Performed By: #### ERTPF, CONNER, LIP, LIVP, TEGCR ####[facility] [address]spqmbmrjon[address] [place] [address] Phosphorus, Inorg.on 82-94-1499Tecqdyisic, Inorg.3.8 mg/dLNormal 2.5-4.5[facility] CenterComment on above:Performed By: #### ERTPF, CONNER, LIP, LIVP, TEGCR ####[address] [address] Vancomycin Troughon 67-19-3160Pfjzrfwxkf Liarne86.3 ug/mL Critically high10.0-20.0[facility] CenterComment on above:Result Comment: Higher trough serum vancomycin concentrations of 15-20 ug/mL are recommended for complicated infections such as bacteremia, endocarditis, osteomyelitis, meningitis, and hospital acquired pneumonia.ADDED ONPerformed By: #### ERTPF, CONNER, LIP, LIVP, TEGCR ####[address] [phone] last dose,.[facility] Comment on above:Performed By: #### ERTPF, CONNER, LIP, LIVP, TEGCR ####[address] [phone] amount,.[facility] HospitalComment on above:Performed By: #### ERTPF, CONNER, LIP, LIVP, TEGCR ####[address] [address] Time last dose,.[facility] HospitalComment on above:Performed By: #### ERTPF, CONNER, LIP, LIVP, TEGCR ####[address] [address] XR ABDOMEN (KUB) (SINGLE AP VIEW)on 72-44-6572KR ABDOMEN (KUB) (SINGLE AP VIEW)EXAMINATION:SINGLE SUPINE XRAY [...] the stomach.Interpreted by:NADEGE Burksigned by:Fidel Marley MD01/26/18Final [facility] HospitalXR CHEST PORTABLEon 65-80-6495CE CHEST PORTABLE EXAMINATION:SINGLE XRAY VIEW OF THE CHEST01/26/2018 5:46 amCOMPARISON:01/25/2018HISTORY:ORDERING SYSTEM PROVIDED HISTORY: comparisonTECHNOLOGIST PROVIDED HISTORY:comparisonFINDINGS:Mild cardiomegaly. I ncreased pulmonary vascular congestion and interstitialedema. Increasing although small bilateral pleural effusions. Nopneumothorax. Basilar atelectasis. No focal consolidation.IMPRESSION: Increasingpulmonary edema and pleural effusions.Interpreted by:NADEGE Wootenigned by:Yadira Wooten D01/26/18Final [facility] HospitalBasic Metabolic Profon [id number] mass conc0.72 mg/dLNormal0.70-1.20[facility] Medical CenterComment on above:Result Comment: ICTERIC SPECIMENPerformed By: #### ERTPF, CONNER, LIP, LIVP, TEGCR ####[id number] [place] [address] GFR, Amer>60Normal>60[facility] [facility] Tripoint Medical CenterComment on above:Performed By: #### ERTPF, CONNER, LIP, LIVP, TEGCR ####Ensenda Zozlqwzdcxsf[address]507 [place] [address] GFR,non Amer>60 Normal>60[facility] Medical CenterComment on above:Performed By: #### ERTPF, CONNER, LIP, LIVP, TEGCR ####[facility] Lhgeebagyeky1109 [place] [address] (cont.)NormalUniversity Hospitals Tripoint Medical CenterComment on above: Result Comment: Average GFR for 50-59 years old: 93 mL/min/1.73sq mChronic Kidney Disease: <60 mL/min/1.73sq mKidney failure: <15 mL/min/1.73sq meGFR calculated using average adult body mass. Additional eGFR calculator available at:http://www.raksul/multiple_crcl_2012.htmPerformed By: #### ERTPF, CONNER, LIP, LIVP, TEGCR ####[place] [place] [address] Anion gap 3 molar conc14 mmol/LNormal9-17[facility] CenterComment on above:Performed By: #### ERTPF, CONNER, LIP, LIVP, TEGCR ####[facility] Opwqwhfjokkt2462 [place] [address] Calcium mass conc8.6 mg/dLNormal8.6-10.4[facility] CenterComment on above: Performed By: #### ERTPF, CONNER, LIP, LIVP, TEGCR ####[facility] Hnegrgzpuqft4242 [place] [address] Chloride molar conc97 mmol/NFdg99-033 [facility] CenterComment on above:Performed By: #### ERTPF, CONNER, LIP, LIVP, TEGCR ####[facility] Spgrcavxhnrl8356 [place] [address] TT0 molar conc24 mmol/VDoidyn42-80IcfbrUniversity Hospitals Tri[facility] Medical Center Comment on above:Performed By: #### ERTPF, CONNER, LIP, LIVP, TEGCR ####[facility] [place] [address] Glucose mass tlhp259 mg/mOZppu79-97[facility] CenterComment on above:Performed By: #### ERTPF, CONNER, LIP, LIVP, TEGCR ####[address] [address] Potassium molar conc3.3 mmol/LLow3.7-5.3[facility] Medical CenterComment on above:Performed By: #### ERTPF, CONNER, LIP, LIVP, TEGCR ####[address] [address] Sodium molar izmv489 mmol/VSuftyx291-456WpbtuUniversity Hospitals Tripoint Medical CenterComment on above: Performed By: #### ERTPF, CONNER, LIP, LIVP, TEGCR ####[address] [address] Urea nitrogen mass conc14 mg/dLNormal6-20 [facility] CenterComment on above:Performed By: #### ERTPF, CONNER, LIP, LIVP, TEGCR ####[address] [address] BUN/CRE RatioNOT REPORTEDNormal9-20[facility] CenterComment on above:Performed By: #### ERTPF, CONNER, LIP, LIVP, TEGCR ####[address] [address] Staging:NOT REPORTED NormalUniversity Hospitals Tripoint Medical CenterComment on above:Performed By: #### ERTPF, CONNER, LIP, LIVP, TEGCR ####[address] [address] CBC with Diffon 95-96-2612Vyp. Basophil0.00 k/uLNormal0.0-0.2[facility] CenterComment on above:Performed By: #### ERTPF, CONNER, LIP, LIVP, TEGCR ####[address] [address] Abs.Imm.Granulocyte1.00 k/uLHigh0.00-0.30[facility] CenterComment on above:Performed By: #### ERTPF, CONNER, LIP, LIVP, TEGCR ####[address] [address] Abs.Neutrophil (Seg) 15.00 k/uLHigh1.8-7.7[facility] CenterComment on above:Performed By: #### ERTPF, CONNER, LIP, LIVP, TEGCR ####[address] [address] Basophils/100 WBC Auto (Bld)0 %Normal0-2MLos Alamitos Medical CenterComment on above:Performed By: #### ERTPF, CONNER, LIP, LIVP, TEGCR ####[place] [address] Eosinophils Auto #/vol (Bld)0.20 10*3/uLNormal0.0-0.4[facility] CenterComment on above:Performed By: #### ERTPF, CONNER, LIP, LIVP, TEGCR ####[address] [address] Eosinophils/100 WBC Auto (Bld)1 %Normal1-4[facility] CenterComment on above:Performed By: #### ERTPF, CONNER, LIP, LIVP, TEGCR ####[address] [address] Immature granulocytes #/vol (Bld)5 %Ojac5BcpyyUniversity Hospitals Tripoint Medical CenterComment on above:Performed By: #### ERTPF, CONNER, LIP, LIVP, TEGCR ####[address] [address] Lymphocytes Auto #/vol (Bld)1.20 10*3/uLNormal1.0-4.8[facility] CenterComment on above:Performed By: #### ERTPF, CONNER, LIP, LIVP, TEGCR ####Filomena [address] [place] [address] Lymphocytes/100 WBC Auto (Bld)6 %Dmi99-97AmuzaUniversity Hospitals Tripoint Medical CenterComment on above:Performed By: #### ERTPF, CONNER, LIP, LIVP, TEGCR ####[address] [address] Monocytes Auto #/vol (Bld)2.60 10*3/uLHigh 0.1-0.8[facility] CenterComment on above:Performed By: #### ERTPF, CONNER, LIP, LIVP, TEGCR ####[facility] [address]yrof[address]up[address] [place] [address] Monocytes/100 WBC Auto (Bld)13 %High1-7[facility] Medical CenterComment on above:Performed By: #### ERTPF, CONNER, LIP, LIVP, TEGCR ####[facility] [address]pmz[address]qh[address] [place] [address] Morphology Interp Eduard (Bld)INCREASED BANDS PRESENTNormalUniversity Hospitals [facility] Comment on above:Result Comment: ANISOCYTOSIS PRESENTTOXIC GRANULATION PRESENT Performed By: #### ERTPF, CONNER, LIP, LIVP, TEGCR ####[facility] Poadlrnondnt6169 [place] [address] Neutrophil (Seg)75 %Eomn07-84UsiqhUniversity Hospitals Tripoint Medical CenterComment on above:Performed By: #### ERTPF, CONNER, LIP, LIVP, TEGCR ####[facility] Qhtpnizisdvi[address] [place] [address] NRBC Automated0.1 per 100 WBCHigh0.0[facility]ortown Medical CenterComment on above: Performed By: #### ERTPF, CONNER, LIP, LIVP, TEGCR ####[facility] [address]rscqfguxxip[address] [place] [address] Platelet mean volume Auto Entitic volume (Bld)11.5 fLNormal8.1-13.5[facility] CenterComment on above: Performed By: #### ERTPF, CONNER, LIP, LIVP, TEGCR ####[facility] Hzkpagakrnao[address] [place] [address] Platelets Auto #/vol (Bld)216 10*3/uL Hsestk750-392EbvpiUniversity Hospitals Tripoint Medical CenterComment on above:Performed By: #### ERTPF, CONNER, LIP, LIVP, TEGCR ####[place] [address] WBC Auto #/vol (Bld)20.0 10*3/uLHigh3.5-11.3MLos Alamitos Medical CenterComment on above:Performed By: #### ERTPF, CONNER, LIP, LIVP, TEGCR ####[address] [address] Erythrocyte distribution width Auto Ratio (RBC)15.7 %High11.8-14.4[facility] Medical CenterComment on above:Performed By: #### ERTPF, CONNER, LIP, LIVP, TEGCR ####[address] [address] Hematocrit Auto Volume Fraction (Bld)33.8 %Low40.7-50.3[facility] CenterComment on above:Performed By: #### ERTPF, CONNER, LIP, LIVP, TEGCR ####[address] [address] Hemoglobin mass conc (Bld)11.3 g/dLLow 13.0-17.0[facility] CenterComment on above:Performed By: #### ERTPF, CONNER, LIP, LIVP, TEGCR ####Filomena [address]wtve[address] [place] [address] [facility] Auto Entitic mass (RBC)30.9 ieDwqtbu36.2-33.5[facility] Medical CenterComment on above:Performed By: #### ERTPF, CONNER, LIP, LIVP, TEGCR ####Filomena [address]zrrzxjh[address] [place] [address] [facility] Auto mass conc (RBC)33.4 g/rPHnfhdu61.4-34.8[facility] Comment on above:Performed By: #### ERTPF, CONNER, LIP, LIVP, TEGCR ####Filomena [place], [place] [phone] [place] Auto Entitic volume (RBC)92.3 sYUmwqpl16.6-102.9[facility] Medical CenterComment on above: Performed By: #### ERTPF, CONNER, LIP, LIVP, TEGCR ####Filomena [place], [place] [phone] Auto #/vol (Bld)3.66 10*6/uLLow 4.21-5.77[facility] Medical CenterComment on above:Performed By: #### ERTPF, CONNER, LIP, LIVP, TEGCR ####Filomena [address] [place], [place] [phone] Diff PerformedNOT REPORTEDFairfield Medical CenterComment on above:Performed By: #### ERTPF, CONNER, LIP, LIVP, TEGCR ####Filomena [address] [place] [address] [phone] Auto #/vol (Bld)NOT REPORTEDFairfield Medical CenterComment on above: Performed By: #### ERTPF, CONNER, LIP, LIVP, TEGCR ####Ensenda [address]huynjhoka[address]75 [place] [address] RBC morphology finding Nom (Bld)NOT REPORTEDNoThe MetroHealth SystemComment on above:Performed By: #### ERTPF, CONNER, LIP, LIVP, TEGCR ####Ensenda Smiqoepowvlg9281 [place] [address] WBC MorphologyNOT REPORTEDNormSouthwest General Health CenterComment on above:Performed By: #### ERTPF, CONNER, LIP, LIVP, TEGCR ####Ensenda Qrhrykppowpu[address]92 [place] [address] CT ABDOMEN PELVIS W IV CONTRASTon [id number] ABDOMEN PELVIS W IV CONTRASTEXAMINATION:CT OF THE [...] ileoc olectomy.Interpreted by:NADEGE Dormanigned by:Hudson Anaya MD01/25/inal resultNormalMerScripps Mercy HospitalCalcium, Ionicon 85-73-7258Nsqsodk mass conc1.09 mmol/LLow1.13-1.33[facility] CenterComment on above:Performed By: #### CALLY IOCAL ####[facility] [address] [place] [address] K (Potassium)on 58-37-2007Yjdiabqse molar conc3.4 mmol/LLow3.7-5.3MLos Alamitos Medical CenterComment on above: Performed By: #### ERTPF, CONNER, LIP, LIVP, TEGCR ####[facility] Hptmbqolfisl6279 [place] [address] Potassium molar conc3.3 mmol/LLow3.7-5.3 [facility] CenterComment on above:Performed By: #### OHP, IOCAL ####[facility] [address] [place] [address] Magnesiumon 78-11-2738Zmlhlzdse mass conc2.1 mg/dLNormal1.6-2.6MercWoodland Memorial HospitalComment on above:Performed By: #### ERTPF, CONNER, LIP, LIVP, TEGCR ####[facility] [address] [place] [address] Phosphorus, Inorg.on 84-65-2570Bflcbgfhqd, Inorg.3.0 mg/dLNormal2.5-4.5[facility] CenterComment on above:Performed By: #### ERTPF, CONNER, LIP, LIVP, TEGCR ####[facility] Ajvopjpqjjwg7204 [place] [address] Vancomycin Troughon 46-57-7499Aiachscnoz Nvuqqj15.2 ug/mOHtiufe73.0-20.0MerScripps Mercy HospitalComment on above:Result Comment: Higher trough serum vancomycin concentrations of 15-20 ug/mL are recommended for complicated infections such as bacteremia, endocarditis, osteomyelitis, meningitis, and hospital acquired pneumonia.Performed By: #### ERTPF, CONNER, LIP, LIVP, TEGCR ####[facility] Lpvnhhagfwzp4702 [place] [address] Date last dose,NOT REPORTEDNormalUniversity Hospitals Tripoint Medical CenterComment on above:Performed By: #### ERTPF, CONNER, LIP, LIVP, TEGCR ####[facility] Wpgkjjzbmjwp1875 [place] [address] Dose amount,NOT REPORTEDNormalUniversity Hospitals Tripoint Medical CenterComment on above:Performed By: #### ERTPF, CONNER, LIP, LIVP, TEGCR ####[facility] Wwbsrdwwciqt1791 [place], [place] [phone] last dose,NOT REPORTEDNormalUniversity Hospitals Tripoint Medical CenterComment on above:Performed By: #### ERTPF, CONNER, LIP, LIVP, TEGCR ####[facility] Uajfjwbppwpc5763 [place] [address] XR CHEST PORTABLEon [id number] CHEST PORTABLE EXAMINATION:SINGLE XRAY VIEW OF THE CHEST01/25/2018 10:00 amCOMPARISON:January 24, 2018HISTORY:ORDERING SYSTEM PROVIDED HISTORY: comparisonTECHNOLOGIST PROVIDED HISTORY:comparisonFINDINGS:Enteric tube extends beyond the gastroesophageal junction.Slightly improved bilateral lung opacities.Cardiomega ly. Mild pulmonary edema.IMPRESSION: Slightly improved bilateral lung opacities. Likely decreased pleuraleffusions and atelectasis.Enteric tube extends beyond the gastroesophageal junction.Interpreted by:NADEGE Escalanteigned by:Cassie Torres MD9/24/18Final resultNormalMerScripps Mercy HospitalBasic Metabolic Profon 80-79-4775Pjlbbfgbm molar conc2.9 mmol/LCritically low3.7-5.3MLos Alamitos Medical CenterComment on above:Performed By: ###YURI WISEMANCAL ####Filomena Ffvfbrkietmf1747 [place] [address] (cont.)NormalUniversity Hospitals Tripoint Medical CenterComment on above:Result Comment: Average GFR for 50-59 years old: 93 mL/min/1.73sq mChronic Kidney Disease: <60 mL/min/1.73sq mKidney failure: <15 mL/min/1.73sq meGFR calculated using average adult body mass. Additional eGFR calculator available at:http://www.raksul/multiple_crcl_2012.htmPerformed By: #### YURI ALAMOCAL ####Filomena [address]zrag[address]azfeqk[address]120 [place] [address] Anion gap 3 molar conc9 mmol/LNormal9-17[facility] CenterComment on above: Performed By: ###YURI WISEMANCAL ####Filomena Ekhwxokfwvqq4542 [place] [address] Calcium mass conc8.1 mg/dLLow8.6-10.4[facility] Medical CenterComment on above:Performed By: #### CALLY IOCAL ####Filomena Exwjspnqfyhq7268 [place] [address] Chloride molar conc95 mmol/XMsh84-481 [facility] CenterComment on above:Performed By: #### CALLY IOCAL ####Filomena Hcgybuwfctjp5537 [place] [address] CH9 molar conc 29 mmol/DVxeagx86-16KvdirUniversity Hospitals Tripoint Medical CenterComment on above:Performed By: #### CALLY IOCAL ####Filomena Rhfsjeumiejp4991 [place] [address] Creatinine mass conc0.55 mg/dLLow0.70-1.20[facility] CenterComment on above:Performed By: #### OHAmrik, IOCAL ####[facility] Vaxiqlhuymnu7981 [place] [address] GFR, Amer>60 Normal>60[facility] Medical CenterComment on above:Performed By: #### OHAmrik, IOCAL ####[facility] Npnodtddrokj0315 [place] [address] GFR,non Amer>60Normal>60[facility] CenterComment on above:Performed By: #### OHmArik, IOCAL ####[facility] Diachxpfueyz2179 [place] [address] Glucose mass xjtv980 mg/sULibi12-81Opmhv [facility] Regional Medical CenterComment on above:Performed By: #### OHAmrik, IOCAL ####[facility] Lmyhvrnjmlnr4450 [place] [address] Sodium molar bctj540 mmol/QOvw222-341DzutcUniversity Hospitals Tripoint Medical CenterComment on above:Performed By: #### OHAmrik, IOCAL ####[facility] Aprcaqzoklaq0345 [place] [address] Urea nitrogen mass conc12 mg/dLNormal6-20[facility] CenterComment on above:Performed By: #### OHP, IOCAL ####[facility] Riwqenebssuj1915 [place] [address] BUN/CRE RatioNOT REPORTEDNormal9-20[facility] CenterComment on above:Performed By: #### OHP, IOCAL ####[facility] Wpicmzyzknjr6361 [place] [address] Staging:NOT REPORTEDNormalUniversity Hospitals [facility] Center Comment on above:Performed By: #### OHAmrik, IOCAL ####[facility] Rhtnlapnipnf7956 [place], [place] [phone] 94-14-6865Evyhwbcxewu distribution width Auto Ratio (RBC)15.8 %High11.8-14.4[facility] CenterComment on above:Performed By: #### OHAmrik, IOCAL ####[facility] Cent[facility] [address] [phone] Auto Volume Fraction (Bld)30.8 %Low40.7-50.3 [facility] CenterComment on above:Performed By: #### OHAmrik, IOCAL ####[facility] [address]jmcy[address]zs[address] [place] [address] Hemoglobin mass conc (Bld)10.2 g/dLLow13.0-17.0[facility] CenterComment on above:Performed By: #### OHAmrik, IOCAL ####[address] [address] MCH Auto Entitic mass (RBC)30.4 vkXbmani51.2-33.5[facility] CenterComment on above:Performed By: #### OHAmrik, IOCAL ####[facility] Cent[facility] [address] [address] MCHC Auto mass conc (RBC)33.1 g/lNRvnmpf28.4-34.8[facility] CenterComment on above: Performed By: #### OHP, IOCAL ####[facility]nie Ttamabolyyjp6380 [place] [address] MCV Auto Entitic volume (RBC)91.9 hSWdgtik04.6-102.9[facility] CenterComment on above:Performed By: #### OHP, IOCAL ####[facility] Centerernie Mnpenhciypxn[address] [place] [address] NRBC Automated0.0 per 100 WBCNormal0.0[facility] CenterComment on above:Performed By: #### CALLY, IOCAL ####Filomena Osabsyeqmmzm4394 [place] [address] Platelet mean volume Auto Entitic volume (Bld)11.5 fLNormal 8.1-13.5[facility] CenterComment on above:Performed By: #### CALLY, IOCAL ####Filomena Ruywwessfucr9026 [place] [address] Platelets Auto #/vol (Bld)156 10*3/xIHhlstb193-286UrjnnUniversity Hospitals Tripoint Medical CenterComment on above:Performed By: #### CALLY, IOCAL ####Filomena Embyvofubrno0835 [place] [address] RBC Auto #/vol (Bld)3.35 10*6/uLLow 4.21-5.77[facility] CenterComment on above:Performed By: #### OHAmrik, IOCAL ####Filomena Nwdmqilxjbsb5007 [place] [address] WBC Auto #/vol (Bld)15.6 10*3/uLHigh3.5-11.3MLos Alamitos Medical CenterComment on above:Performed By: #### CALLY, IOCAL ####Filomena Rgfnjkavocvg2350 [place] [address] Calcium, Ionicon 71-69-9566Fukackw mass conc1.06 mmol/LLow1.13-1.33[facility] CenterComment on above:Performed By: #### OHP, IOCAL ####Sarithay Yaqvoliuctda2472 [place] [address] K (Potassium)on 37-97-3594Ynjmdleul molar conc3.0 mmol/LLow 3.7-5.3MLos Alamitos Medical CenterComment on above:Performed By: #### OHP, IOCAL ####Sarithay Cjbivgtveouy6447 [place] [address] Potassium molar conc3.0 mmol/LLow3.7-5.3[facility] Regional Medical CenterComment on above:Performed By: #### OHAmrik, IOCAL ####Sarithay Qlephtdntdvo8820 [place], [place] [phone] 04-32-7457Roiwrusbn mass conc1.9 mg/dLNormal1.6-2.6[facility] Medical CenterComment on above:Performed By: #### OHAmrik, IOCAL ####[facility] Ydimezdwdfdr2747 [place] [address] Phosphorus, Inorg.on 12-50-9740Wydbxxhkcq, Inorg.2.3 mg/dLLow 2.5-4.5MerScripps Mercy HospitalComment on above:Performed By: #### CALLY, IOCAL ####Filomena Zpzztkwotvky6457 [place] [address] Vancomycin Troughon 26-16-3270Asgyaidcjf Trough8.8 ug/mLLow10.0-20.0MerScripps Mercy HospitalComment on above:Result Comment: Higher trough serum vancomycin concentrations of 15-20 ug/mL are recommended for complicated infections such as bacteremia, endocarditis, osteomyelitis, meningitis, and hospital acquired pneumonia.Performed By: #### OHAmrik, IOCAL ####Filomena Hjtkejgscxkd1467 [place], [place] [phone] last dose,NOT REPORTEDNormalMerScripps Mercy HospitalComment on above:Performed By: #### OHP, IOCAL ####Sarithay Fplzacqacrkm5980 [place], [place] [phone] amount,NOT REPORTEDNormalUniversity Hospitals [facility] Center Comment on above:Performed By: #### OHP, IOCAL ####[facility] Bubpwbrunafa[address] [place], [place] [phone] last dose,NOT REPORTEDNormalMerScripps Mercy HospitalComment on above:Performed By: #### OHP, IOCAL ####[facility] Mxzxwkywsbpn7571 [place], [place] 1506608 XR CHEST PORTABLEon [id number] CHEST PORTABLEEXAMINATION:SINGLE XRAY VIEW OF THE CHEST01/24/2018 [...] follow-up is recommended.Interpreted by:NADEGE Wrightigned by:Cassie Guzmán MD01/24/inal resultNormalMercy Community Regional Medical CenterBasic Metabolic Profon 19-87-6922Yjfhcgbaiu mass conc0.47 mg/dLLow0.70-1.20MerScripps Mercy HospitalComment on above:Result Comment: ICTERIC SPECIMENPerformed By: #### OHP, IOCAL ####[facility] Dowzvjgbhzqd7160 [place] [address] GFR, Amer>60 Normal>60MerScripps Mercy HospitalComment on above:Performed By: #### OHP, IOCAL ####[facility] Ziynpfamjrny3516 [place] [address] GFR,non Amer>60Normal>60MerScripps Mercy HospitalComment on above:Performed By: #### OHP, IOCAL ####[facility] Fzgrpulnzcyi6638 [place] [address] (cont.)NormalUniversity Hospitals Tripoint Medical CenterComment on above:Result Comment: Average GFR for 50-59 years old: 93 mL/min/1.73sq mChronic Kidney Disease: <60 mL/min/1.73sq mKidney failure: <15 mL/min/1.73sq meGFR calculated using average adult body mass. Additional eGFR calculator available at:http://www.raksul/multiple_crcl_2012.htmPerformed By: #### CALLY IOCAL ####Sarithaernie Mqoywgwkmyqj6790 [place] [address] Anion gap 3 molar conc11 mmol/LNormal9-17[facility] CenterComment on above: Performed By: #### CALLY IOCAL ####Filomena Qnglgxgkqjrs1561 [place] [address] Calcium mass conc8.3 mg/dLLow8.6-10.4[facility] CenterComment on above:Performed By: #### CALLY IOCAL ####Sarithay Wlnjfrxettjb0735 [place] [address] Chloride molar conc98 mmol/TXbudox87-910 [facility] CenterComment on above:Performed By: #### CALLY, IOCAL ####Sarithay Obubliqjvwhp0878 [place] [address] LZ2 molar conc 25 mmol/VWbdbbk62-58DoapzUniversity Hospitals Tripoint Medical CenterComment on above:Performed By: #### OHAmrik, IOCAL ####Sarithay Nysmebuxlmuc7125 [place] [address] Glucose mass aoki557 mg/wABvbw50-55XvegeLos Alamitos Medical CenterComment on above:Performed By: #### OHP, IOCAL ####Sarithay Rjjujkgazobp3086 [place] [address] Potassium molar conc3.2 mmol/LLow3.7-5.3 [facility] CenterComment on above:Performed By: #### CALLY, IOCAL ####Filomena Ghdrtllttnwn6466 [place] [address] Sodium molar fyyx873 mmol/DJvk359-560LlpfxUniversity Hospitals Tripoint Medical CenterComment on above: Performed By: #### CALLY, IOCAL ####Filomena [address] [place] [address] Urea nitrogen mass conc9 mg/dLNormal6-20[facility] CenterComment on above:Performed By: #### CALLY, IOCAL ####[facility] Duojhrgipyvn[address] [place] [address] BUN/CRE RatioNOT REPORTEDNormal9-20[facility] CenterComment on above:Performed By: #### CALLY, IOCAL ####Filomena [address] [place] [address] Staging:NOT REPORTEDNormalUniversity Hospitals [facility] Comment on above:Performed By: #### CALLY, IOCAL ####Filomena [address] [place] [address] Brain Natri. Peptideon 99-77-3722Wamrxkjhsaz peptide B mass conc (Bld)NormalUniversity Hospitals Tripoint Medical CenterComment on above: Result Comment: Pro-BNP Reference Range:Rule Out: <300[place]: Age <50 300-450 Age 50-75 300-900 Age >75 300-1800Usually represents mild to moderate HF but other cardiopulmonary causes cannot be ruled out.Rule In: Age <50 >450 Age 50-75 >900 Age >75 >1800Performed By: #### CALLY, IOCAL ####Filomena [address] [address] Natriuretic peptide B mass conc (Bld) 47[address] pg/mLHigh<300[facility] CenterComment on above:Result Comment: Pro-BNP results cannot be compared to BNP results.Performed By: #### OHP, IOCAL ####[facility] Ecdlpknqjpki[address] [place] [address] CBC on 17-32-0941Yukwuzptvtn distribution width Auto Ratio (RBC)15.6 %High11.8-14.4 [facility] Medical CenterComment on above:Performed By: #### OHP, IOCAL ####[address] [address] Hematocrit Auto Volume Fraction (Bld)32.4 %Low40.7-50.3MLos Alamitos Medical Center Comment on above:Performed By: #### OHP, IOCAL ####[facility] [address]wq[address]rgsps[address] [place] [address] Hemoglobin mass conc (Bld)11.1 g/dLLow13.0-17.0 [facility] CenterComment on above:Performed By: #### OHP, IOCAL ####[facility] [address]wetmkwloojx[address] [place] [address] MCH Auto Entitic mass (RBC)31.8 xhWlraka84.2-33.5[facility] CenterComment on above:Performed By: #### OHP, IOCAL ####[facility] [place] [address] MCHC Auto mass conc (RBC)34.3 g/dLNormal 28.4-34.8[facility] CenterComment on above:Performed By: #### OHP, IOCAL ####[address] [address] MCV Auto Entitic volume (RBC)92.8 qJSirjye51.6-102.9[facility] CenterComment on above:Performed By: #### OHP, IOCAL ####[facility] Uowyciulsq[address] [place] [address] NRBC Automated0.0 per 100 WBCNormal0.0 [facility] CenterComment on above:Performed By: #### OHAmrik, IOCAL ####[facility] RojasHhafisfdcqzk5313 [place] [address] Platelets Auto #/vol (Bld)See Reflexed IPF NlxbupWhujrz794-129DshbzUniversity Hospitals Tripoint Medical Center Comment on above:Performed By: #### OHP, IOCAL ####[facility] RojasRofomutxwdtv8006 [place] [address] RBC Auto #/vol (Bld)3.49 10*6/uLLow4.21-5.77 [facility] CenterComment on above:Performed By: #### OHP, IOCAL ####[facility] Vqgstzzrcmeo5286 [place] [address] WBC Auto #/vol (Bld)23.6 10*3/uLHigh3.5-11.3MLos Alamitos Medical CenterComment on above: Performed By: #### OHP, IOCAL ####[facility] Fzfjgwspkjwt8484 [place] [address] Platelet mean volume Auto Entitic volume (Bld)NOT REPORTED Normal8.1-13.5[facility] Medical CenterComment on above:Performed By: #### OHP, IOCAL ####[address] [address] [address] LUMBAR SPINE WO CONTRASTon 62-80-9114NC LUMBAR SPINE WO CONTRASTEXAMINATION:CT OF THE THORACIC [...] onprevious CTA.Interpreted by:NADEGE Lancasterigned by:Hebert Best MD01/22/18inal resultNormalUniversity Hospitals Tripoint Medical CenterCT THORACIC SPINE WO CONTRASTon 85-46-8346YX THORACIC SPINE WO CONTRASTEXAMINATION:CT OF THE THORACIC [...] onprevious CTA.Interpreted by:NADEGE Lancasterigned by:Hebert Best MD01/22/18Final resultNormalMerScripps Mercy HospitalCalcium, Ionicon 05-39-7620Bamcbry mass conc1.09 mmol/LLow1.13-1.33[facility] Medical CenterComment on above:Performed By: #### OHP, IOCAL ####[facility] [employer] [place], [place] [address] Calcium mass conc1.08 mmol/LLow1.13-1.33 [facility] Medical CenterComment on above:Performed By: #### OHP, IOCAL ####[facility] Vzecbvppvrvf7202 [place], [place] [id number] Magnesiumon 77-03-5583Wtikzpeqf mass conc2.0 mg/dLNormal1.6-2.6[facility] Medical CenterComment on above:Performed By: #### OHP, IOCAL ####[employer] [place], [place] [phone] mass conc2.0 mg/dLNormal1.6-2.6 [facility] CenterComment on above:Performed By: #### OHP, IOCAL ####[facility] Pzeellwqtydh8081 [place] [address] PLT, Immature Fract.on 53-08-9908Cscdpwxi, Fluoresc.134 k/jJNrb985-052UwvgyScripps Mercy HospitalComment on above:Performed By: #### OHP, IOCAL ####[facility] Xvlfbpgntdmr4545 [place] [address] PLT, Immature Fract.6.9 %Normal1.1-10.3MLos Alamitos Medical CenterComment on above:Performed By: #### OHP, IOCAL ####[facility] Ullsykknwgej1136 [place] [address] Vancomycin Troughon 13-38-9190Uflmnkfxbk Dnhtbx61.6 ug/mL Ncvzse80.0-20.0[facility] Medical CenterComment on above:Result Comment: Higher trough serum vancomycin concentrations of 15-20 ug/mL are recommended for complicated infections such as bacteremia, endocarditis, osteomyelitis, meningitis, and hospital acquired pneumonia.Performed By: #### OHP, IOCAL ####[facility] Kurddrtjskcq3854 [place] [address] Date last dose,NOT REPORTEDNormalUniversity Hospitals Tripoint Medical CenterComment on above: Performed By: #### OHP, IOCAL ####[facility] Pxwutusotlwa1437 [place] [address] Dose amount,NOT REPORTEDNormSouthwest General Health Center Comment on above:Performed By: #### OHP, IOCAL ####[facility] Jnnkzdvntgur0544 [place] [address] Time last dose,NOT REPORTEDNormalUniversity Hospitals Tripoint Medical CenterComment on above:Performed By: #### OHP, IOCAL ####[facility] Atdqtvroljfb7375 [place] [address] Vitamin D 25 OHon 98-66-4306Bybfqtq D 25 OH10.5 ng/mLLow30.0-100.0[facility] Comment on above:Result Comment: Reference Range:Vitamin D status Range Deficiency <20 ng/mL Mild Deficiency 20-30 ng/mL Sufficiency 30-100 ng/mL Toxicity >100 ng/mLPerformed By: #### OHP, IOCAL ####[facility] Atdcwryzxsnt0320 [place] [address] XR CHEST PORTABLEon 52-27-3821SM CHEST PORTABLEEXAMINATION:SINGLE XRAY VIEW OF THE CHEST01/23/2018 [...] interst itialchange.Interpreted by:NADEGE Wrightigned by:Cassie Guzmán MD01/23/inal resultNormalUniversity Hospitals Tripoint Medical CenterArterial Blood Gases on 42-35-0017Oqgzq TestINFORMATION NOT PROVIDEDNormalUniversity Hospitals Tripoint Medical CenterComment on above:Performed By: #### OHP, IOCAL ####[facility] Opixbgecsoli1384 [place] [address] Body Temp.37.0NormalUniversity Hospitals Tripoint Medical CenterComment on above:Performed By: #### OHP, IOCAL ####[facility] Pnvkpqecntbh1379 [place] [address] Carboxy Hgb2.7 %Normal 0-5[facility] Medical CenterComment on above:Result Comment: Reference Range:Non-Smokers 0-2%Average Smoker 2-4%Heavy Smoker <10%Performed By: #### OHP, IOCAL ####[facility] Uititxfkheci7774 [place] [address] FQY081%NormalUniversity Hospitals Tripoint Medical CenterComment on above:Performed By: #### OHP, IOCAL ####[facility] Ohyeemwinytv6886 [place] [address] HCO3 molar conc (Bld)28.2 mmol/BWtdn25-66JtzrwUniversity Hospitals Tripoint Medical CenterComment on above:Performed By: #### OHP, IOCAL ####[facility] Tpvfbzxiblur0503 [place] [address] Oxygen ppres (BldA)81.3 mm[Hg]Yonioi87-07IoaqiUniversity Hospitals Tripoint Medical CenterComment on above:Performed By: #### OHP, IOCAL ####[facility] Mcvgdcaghjxp4097 [place] [address] Oxygen saturation in Blood95.9 %Xfcbwi79-934DlrxyUniversity Hospitals Tripoint Medical CenterComment on above:Performed By: #### OHP, IOCAL ####[facility] Tzaqjlupppth5022 [place] [address] xQH054.5 irUmIcaddc02-21SkoufUniversity Hospitals Tripoint Medical Center Comment on above:Performed By: #### OHP, IOCAL ####[facility] Sxmuelufwzid0086 [place] [address] pH (Bld)7.447 [pH]Normal7.350-7.450[facility] Medical CenterComment on above:Performed By: #### OHP, IOCAL ####[facility] Rpumrvvzruah2547 [place] [address] Positive Base Excess4.2 mmol/LHigh0.0-2.0[facility] CenterComment on above:Performed By: #### OHP, IOCAL ####[facility] Eekhtzsvbwpd0702 [place] [address] MethemoglobinNOT REPORTEDNormal0.0-1.5[facility] CenterComment on above:Performed By: #### OHP, IOCAL ####[facility] Tydfftbijwij8762 [place] [address] ModeNOT REPORTEDNormal [facility] CenterComment on above:Performed By: #### OHP, IOCAL ####[facility] Faweiqmmbujk0067 [place] [address] Negative Base ExcessNOT REPORTEDNormal0.0-2.0[facility] CenterComment on above: Performed By: #### OHP, IOCAL ####[facility] [address] [place] [address] Notification TimeNOT REPORTEDNormalUniversity Hospitals Tripoint Medical CenterComment on above:Performed By: #### OHP, IOCAL ####[facility] Aonlmqmcuzar7088 [place] [address] Notification:NOT REPORTEDNormalUniversity Hospitals Tripoint Medical CenterComment on above:Performed By: #### OHP, IOCAL ####[facility] Bvqcxavcyezc4083 [place] [address] O2 Device/Flow/%NOT REPORTEDNormalUniversity Hospitals Tripoint Medical CenterComment on above:Performed By: #### OHP, IOCAL ####[facility] Serlyomtjnhm0791 [place] [address] OxyhemoglobinNOT BNSZRHUTXegyhh45.0-98.0[facility] CenterComment on above:Performed By: #### OHP, IOCAL ####[facility] Rgyymucjmhbx2953 [place] [address] dZF9 Adj'd for TempNOT MFNTXSPLNklqsl15-67IhpllScripps Mercy HospitalComment on above:Performed By: #### OHP, IOCAL ####[facility] Onfupbqwnrsx2916 [place] [address] PEEP/CPAPNOT REPORTEDNormalUniversity Hospitals Tripoint Medical Center Comment on above:Performed By: #### OHP, IOCAL ####[facility] Kkpyozkgolko2140 [place] [address] pH Adjst'd for Temp.NOT REPORTEDNormal 7.350-7.450MerScripps Mercy HospitalComment on above:Performed By: #### OHP, IOCAL ####[facility] Celksaqkkfvt5040 [place] [address] gY4 Adjst'd for TempNOT ZPJLKFTXSrksdh31-56HbnorUniversity Hospitals Tripoint Medical CenterComment on above:Performed By: #### OHP, IOCAL ####[facility] Qtvlfxuwkegr4956 [place] [address] PSVNOT REPORTEDNormalUniversity Hospitals Tripoint Medical CenterComment on above:Performed By: #### OHP, IOCAL ####[facility] Cadisvbzqfzl1904 [place] [address] Pt. PositionNOT REPORTEDNormalUniversity Hospitals Tripoint Medical CenterComment on above:Performed By: #### OHP, IOCAL ####[facility] Edgueenzaqux0794 [place] [address] Set RateNOT REPORTED NormalUniversity Hospitals Tripoint Medical CenterComment on above:Performed By: #### OHP, IOCAL ####[facility] Fhvksptpkajl9685 [place], [place] [phone] DrawnNOT REPORTEDNoalUniversity Hospitals Tripoint Medical CenterComment on above: Performed By: #### OHP, IOCAL ####[facility] Utahnxheupez5508 [place], [place] [phone] for RespiratoryNOT REPORTEDNormalUniversity Hospitals Tripoint Medical CenterComment on above:Performed By: #### OHP, IOCAL ####[facility] Cosezdlgrhfy1289 [place], [place] [phone])[phone] HbNOT REPORTED Acudon40.0-16.0[facility] CenterComment on above:Performed By: #### OHP, IOCAL ####[facility] Bvekjhkxgmdg3786 [place], [place] [phone] RateNOT REPORTEDNoalUniversity Hospitals Tripoint Medical Center Comment on above:Performed By: #### OHP, IOCAL ####[facility] Dlyavdxzpupz6206 [place], [place] [phone] REPORTEDFairfield Medical CenterComment on above:Performed By: #### OHP, IOCAL ####[facility] Efbwuvizgdjy4246 [place], [place] [phone] Metab w/rfx MGon 01-22-2018(cont.) NormalUniversity Hospitals Tripoint Medical CenterComment on above:Result Comment: Average GFR for 50-59 years old: 93 mL/min/1.73sq mChronic Kidney Disease: <60 mL /min/1.73sq mKidney failure: <15 mL/min/1.73sq meGFR calculated using average adult body mass. Additional eGFR calculator available at:http://www.NetShoes.StylePuzzle/multiple_crcl_2012.htmPerformed By: #### OHP, IOCAL ####[facility] Pzqmdfboqkpp5337 [place], [place] [phone] gap 3 molar conc9 mmol/LNormal9-17[facility] CenterComment on above: Performed By: #### OHAmrik, IOCAL ####[facility] Iftvcyumviyg3518 [place] [address] Calcium mass conc8.0 mg/dLLow8.6-10.4[facility] CenterComment on above:Performed By: #### OHAmrik, IOCAL ####[facility] Hontculgpaet7199 [place] [address] Chloride molar conc99 mmol/ELzzptx31-239 [facility] CenterComment on above:Performed By: #### OHAmrik, IOCAL ####[facility] Lpoglvruobwd2175 [place] [address] DG0 molar conc 28 mmol/YCjqsqv08-56PdxcxUniversity Hospitals Tripoint Medical CenterComment on above:Performed By: #### OHAmrik, IOCAL ####[facility] Xlzsipyfjplu9509 [place] [address] Creatinine mass conc0.56 mg/dLLow0.70-1.20[facility] CenterComment on above:Performed By: #### OHAmrik, IOCAL ####[facility] Xkywfwxrbnoy8451 [place] [address] GFR, Amer>60 Normal>60[facility] CenterComment on above:Performed By: #### OHP, IOCAL ####[facility] Hwmzucefiihd4154 [place] [address] GFR,non Amer>60Normal>60[facility] CenterComment on above:Performed By: #### OHP, IOCAL ####[facility] Hfxdngplajgq9350 [place] [address] Glucose mass pfyo780 mg/kFWtyi14-35XvaihLos Alamitos Medical CenterComment on above:Performed By: #### OHP, IOCAL ####[facility] Jhxjjjmmffla9221 [place], [place] [phone] molar conc3.8 mmol/LNormal3.7-5.3[facility] Medical CenterComment on above:Performed By: #### OHAmrik, IOCAL ####[facility] Acbygbkiuefg1598 [place], [place] [phone])[phone] molar zqeh220 mmol/TGpkris403-336OvhvxUniversity Hospitals Tripoint Medical CenterComment on above:Performed By: #### OHAmrik, IOCAL ####[facility] Ejwbldgljybd6584 [place], [place] [phone] nitrogen mass conc9 mg/dLNormal6-20[facility] CenterComment on above:Performed By: #### CALLY, IOCAL ####[facility] Qgxqnnxutaxg4915 [place], [place] [phone]/CRE RatioNOT REPORTEDNormal9-20[facility] CenterComment on above:Performed By: #### OHAmrik, IOCAL ####[facility] Qngcmikqaett1274 [place], [place] [phone]:NOT REPORTEDNormalUniversity Hospitals Tripoint Medical CenterComment on above:Performed By: #### CALLY, IOCAL ####[facility] Bbxdtxthdqrc6309 [place], [place] [phone] Metabolic Profon 01-22-2018(cont.)NormalUniversity Hospitals Tripoint Medical CenterComment on above:Result Comment: Average GFR for 50-59 years old: 93 mL/min/1.73sq mChronic Kidney Disease: <60 mL/min/1.73sq mKidney failure: <15 mL/min/1.73sq meGFR calculated using average adult body mass. Additional eGFR calculator available at:http://www.NetShoes.StylePuzzle/multiple_crcl_2012.htmPerformed By: #### CALLY, IOCAL ####[facility] Tewndroxnkpf8482 [place] [address] Anion gap 3 molar conc11 mmol/LNormal9-17[facility] CenterComment on above: Performed By: #### OHAmrik, IOCAL ####[facility] Ckqulxnyuswn4386 [place] [address] Calcium mass conc8.1 mg/dLLow8.6-10.4[facility] CenterComment on above:Performed By: #### OHAmrik, IOCAL ####[facility] Kefrogpyuowr1760 [place] [address] Chloride molar conc99 mmol/EEbfqzd33-639 [facility] CenterComment on above:Performed By: #### OHAmrik, IOCAL ####[facility] Osjyxgrfvjyt4929 [place] [address] UP5 molar conc 27 mmol/EZrhzzd60-47JjjriUniversity Hospitals Tripoint Medical CenterComment on above:Performed By: #### OHAmrik, IOCAL ####[facility] Yhckguklvazx2035 [place] [address] Creatinine mass conc0.58 mg/dLLow0.70-1.20[facility] CenterComment on above:Performed By: #### OHAmrik, IOCAL ####[facility] Rhrnymfiqbrx6086 [place] [address] GFR, Amer>60 Normal>60[facility] CenterComment on above:Performed By: #### OHP, IOCAL ####[facility] Huodzhjmlayt7593 [place] [address] GFR,non Amer>60Normal>60[facility] CenterComment on above:Performed By: #### OHP, IOCAL ####[facility] Btfxjyuizczs1277 [place] [address] Glucose mass conc87 mg/xUFwnazz41-02HsfsoLos Alamitos Medical CenterComment on above:Performed By: #### OHP, IOCAL ####[facility] Xhltkjhhcppa3316 [place], [place] [phone] molar conc3.6 mmol/LLow3.7-5.3[facility] Medical CenterComment on above:Performed By: #### CALLY IOCAL ####[facility] Jhagyznivqbz0536 [place] [address] Sodium molar iivp228 mmol/TIlqcoz768-381CxqepUniversity Hospitals Tripoint Medical CenterComment on above:Performed By: #### CALLY IOCAL ####[facility] Socpgfuijbck9072 [place] [address] Urea nitrogen mass conc6 mg/dLNormal6-20[facility] CenterComment on above:Performed By: #### CALLY IOCAL ####[facility] Czjwovkqxaxr7539 [place], [place] [phone] Natri. Peptideon 63-52-3526Ygqhtqbmqbc peptide B mass conc (Bld)NormalUniversity Hospitals Tripoint Medical CenterComment on above:Result Comment: Pro-BNP Reference Range:Rule Out: <300Grey Zone: Age <50 300-450 Age 50-75 300- 900 Age >75 300-1800Usually represents mild to moderate HF but other cardiopulmonary causes cannot be ruled out.Rule In: Age <50 >450 Age 50-75 >900 Age >75 >1800Performed By: #### CALLY IOCAL ####[facility] Neqxdqqnqdqx7151 [place] [address] Natriuretic peptide B mass conc (Bld)58819 pg/mL High<300[facility] CenterComment on above:Result Comment: Pro-BNP results cannot be compared to BNP results.Performed By: #### CALLY, IOCAL ####[facility] Ionksbpkerbt5808 [place], [place] [phone] 68-01-6587Hgaxhhkdbvx distribution width Auto Ratio (RBC)15.8 %High11.8-14.4 [facility] CenterComment on above:Performed By: #### OHAmrik, IOCAL ####[facility] Mzupopxdexza5308 [place] [address] Hematocrit Auto Volume Fraction (Bld)32.6 %Low40.7-50.3MLos Alamitos Medical Center Comment on above:Performed By: #### OHP, IOCAL ####[facility] Cihsxyxmjegu7925 [place] [phone] mass conc (Bld)10.7 g/dLLow13.0-17.0 [facility] CenterComment on above:Performed By: #### OHAmrik, IOCAL ####[address] [address] MCH Auto Entitic mass (RBC)31.4 snPhwywp69.2-33.5[facility] CenterComment on above:Performed By: #### OHP, IOCAL ####[facility] Aijbdhzmvyjy[address] [place] [address] MCHC Auto mass conc (RBC)32.8 g/dLNormal 28.4-34.8[facility] CenterComment on above:Performed By: #### OHP, IOCAL ####[facility] [address] [address] MCV Auto Entitic volume (RBC)95.6 vEWruids47.6-102.9[facility] CenterComment on above:Performed By: #### OHP, IOCAL ####[facility] Wwahqyjpkfhf[address] [place] [phone] Automated0.0 per 100 WBCNormal0.0 [facility] CenterComment on above:Performed By: #### OHP, IOCAL ####[address] [address] Platelets Auto #/vol (Bld)See Reflexed IPF SdfgyjVhefzt358-077AnzjfUniversity Hospitals Tripoint Medical Center Comment on above:Performed By: #### CALLY IOCAL ####[facility] Orupbrxdaxlj[address] [place] [address] RBC Auto #/vol (Bld)3.41 10*6/uLLow4.21-5.77 [facility] CenterComment on above:Performed By: #### CALYL, IOCAL ####[facility] Mqdtpcsgqtex[address] [place] [address] WBC Auto #/vol (Bld)28.0 10*3/uLHigh3.5-11.3MLos Alamitos Medical CenterComment on above: Performed By: #### CALLY IOCAL ####[address] [address] CBC with Diffon 87-59-4281Wvz. Basophil0.00 k/uLNormal0.0-0.2 [facility] CenterComment on above:Performed By: #### CALLY IOCAL ####[address] [address] Abs.Imm.Granulocyte0.29 k/uLNormal0.00-0.30[facility] Comment on above:Performed By: #### CALLY IOCAL ####[address] [address] Abs.Neutrophil (Seg)25.64 k/uLHigh1.8-7.7[facility] CenterComment on above:Performed By: #### CALLY, IOCAL ####[address] [address] Basophils/100 WBC Auto (Bld)0 %Normal0-2MLos Alamitos Medical CenterComment on above: Performed By: #### CALLY, IOCAL ####[address] [address] Eosinophils Auto #/vol (Bld)0.00 10*3/uLNormal0.0-0.4[facility] Centercy [facility] Medical CenterComment on above:Performed By: #### OHAmrik, IOCAL ####[facility] [address]sanpmilojov[address] [place] [address] Eosinophils/100 WBC Auto (Bld)0 %Low1-4[facility] CenterComment on above:Performed By: #### OHAmrik, IOCAL ####[facility] Ynsfaegkgfig[address] [place] [address] Immature granulocytes #/vol (Bld)1 %Iuqx6UjucjUniversity Hospitals Tripoint Medical CenterComment on above:Performed By: #### OHAmrik, IOCAL ####[facility] [address] [address] Lymphocytes Auto #/vol (Bld)2.00 10*3/uLNormal1.0-4.8[facility] CenterComment on above: Performed By: #### OHAmrik, IOCAL ####[facility] [address]tfwkqvjwhak[address] [place] [address] Lymphocytes/100 WBC Auto (Bld)7 %Tyg75-61GoozlUniversity Hospitals Tripoint Medical CenterComment on above:Performed By: #### OHP, IOCAL ####[facility] [address]qvyutnkpt[address] [place] [address] Monocytes Auto #/vol (Bld)0.57 10*3/uLNormal0.1-0.8[facility] CenterComment on above: Performed By: #### OHP, IOCAL ####[facility] Jhriwojroieq4461 [place] [address] Monocytes/100 WBC Auto (Bld)2 %Normal1-7[facility] CenterComment on above:Performed By: #### OHP, IOCAL ####[facility] Nrcjnhwxcttf6521 [place] [address] Morphology Interp Eduard (Bld)INCREASED BANDS PRESENTNormalUniversity Hospitals Tripoint Medical CenterComment on above:Result Comment: ANISOCYTOSIS PRESENTPerformed By: #### CALLY, IOCAL ####[facility] Dclpmigeckhd9149 [place] [address] Neutrophil (Seg)90 %Afok91-81VoiokUniversity Hospitals Tripoint Medical CenterComment on above:Performed By: #### OHAmrik, IOCAL ####[facility] Br[address]it[address]ukbu[address] [place] [address] NRBC Automated0.0 per 100 WBCNormal0.0[facility] Medical CenterComment on above:Performed By: #### OHAmrik, IOCAL ####[address] [address] WBC Auto #/vol (Bld)28.5 10*3/uLHigh3.5-11.3MLos Alamitos Medical CenterComment on above:Performed By: #### OHAmrik, IOCAL ####[address] [place] [address] Erythrocyte distribution width Auto Ratio (RBC)15.6 %High 11.8-14.4[facility] Medical CenterComment on above:Performed By: #### OHAmrik, IOCAL ####[facility] I[address]ues[address]ugkowi[address] [place] [address] Hematocrit Auto Volume Fraction (Bld)31.4 %Low40.7-50.3MLos Alamitos Medical CenterComment on above:Performed By: #### OHP, IOCAL ####[facility] Iosczmidcnqg4574 [place] [address] Hemoglobin mass conc (Bld)10.3 g/dLLow 13.0-17.0[facility] CenterComment on above:Performed By: #### OHP, IOCAL ####[facility] Ddqvvvehmhcd2771 [place] [address] MCH Auto Entitic mass (RBC)30.9 iwGhjfmh42.2-33.5[facility] Comment on above:Performed By: #### OHP, IOCAL ####[facility] Jzhaupyhmutf1189 [place] [address] MCHC Auto mass conc (RBC)32.8 g/dLNormal 28.4-34.8[facility] CenterComment on above:Performed By: #### OHP, IOCAL ####[facility] Fzjasknpgaws7272 [place] [address] MCV Auto Entitic volume (RBC)94.3 sLRcedaa70.6-102.9[facility] CenterComment on above:Performed By: #### OHAmrik, IOCAL ####[facility] [address]hrv[address] [place] [address] Platelets Auto #/vol (Bld)See Reflexed IPF QqapdsHstigj165-507NfmwsUniversity Hospitals Tripoint Medical CenterComment on above: Performed By: #### OHP, IOCAL ####[facility] Fattnyuaqchk3702 [place] [address] RBC Auto #/vol (Bld)3.33 10*6/uLLow4.21-5.77[facility] CenterComment on above:Performed By: #### OHP, IOCAL ####[facility] Zvexmucybiwj1538 [place] [address] Auto Diff PerformedNOT REPORTEDNormalUniversity Hospitals Tripoint Medical CenterComment on above:Performed By: #### OHP, IOCAL ####[facility] Qgsompksnuas6354 [place] [address] Platelet mean volume Auto Entitic volume (Bld)NOT REPORTED Normal8.1-13.5[facility] CenterComment on above:Performed By: #### OHP, IOCAL ####[facility] Fyublspszbrn3528 [place], [place] [phone] Auto #/vol (Bld)NOT REPORTEDFairfield Medical CenterComment on above:Performed By: #### OHP, IOCAL ####[facility] Rninhqpsegez3929 [place], [place] [phone])[phone] morphology finding Nom (Bld)NOT REPORTEDNoThe MetroHealth SystemComment on above: Performed By: #### OHP, IOCAL ####[facility] Zuhweiryvbdj5321 [place], [place] [phone])[phone] MorphologyNOT REPORTEDNoThe MetroHealth SystemComment on above:Performed By: #### OHP, IOCAL ####[facility] Xmeyyenwojfv6677 [place] [address] MRI LUMBAR SPINE WO CONTRASTon 01-22-2018 MRI [...] T2 hyperintensity involves the L1 vertebral body. S21uhqhkqd process acute fracture. Remaining vertebrae maintain normal [...] facet arthrosis, mildcentral spinal canal stenosis and neol-im-bbdublau bilateral foraminalstenosis.IMPRESSION: L1 acute compression fracture, 20% anterior height loss. No bonyretropulsion or acute neural impingement.T12 acute spinous process fracture.Interpreted by:NADEGE Romeroigned by:Ramakrishna Santana MD01/22/18 Recipients:Rubina Arreaga DO - In Anant (authorizing provider)Final resultNormalUniversity Hospitals Tripoint Medical Center Magnesiumon 73-54-4430Xytggjgsl mass conc2.0 mg/dLNormal1.6-2.6[facility] Medical CenterComment on above:Performed By: #### OHP, IOCAL ####[facility] [address] [place] [address] [phone])[phone], Immature Fract.on 00-66-7115Shkfuays, Fluoresc.128 k/vTQwh251-999TjconUniversity Hospitals Tripoint Medical Center Comment on above:Result Comment: ORDERED BY LABPerformed By: #### OHP, IOCAL ####[facility] Eamjhnhbiskt0695 [place], [place] [phone])[phone], Immature Fract.5.8 %Normal1.1-10.3[facility] Regional Medical CenterComment on above:Result Comment: ORDERED BY LABPerformed By: #### OHP, IOCAL ####[facility] Elqhztyflnpg1506 [place] [address] Platelet, Fluoresc.132 k/fWMzr252-041 [facility]point Medical CenterComment on above:Performed By: #### OHP, IOCAL ####[facility] [address] [place] [address] PLT, Immature Fract.6.2 %Normal1.1-10.3[facility]y [facility] CenterComment on above: Performed By: #### OHP, IOCAL ####[facility] G[address]zt[address] [place] [address] Phosphorus, Inorg.on 05-49-1850Ylgbrehrgp, Inorg.2.2 mg/dLLow 2.5-4.5[facility] CenterComment on above:Performed By: #### OHP, IOCAL ####[facility] [address]lr[address]vq[address] [place] [address] Phosphorus, Inorg.2.5 mg/dLNormal2.5-4.5[facility] CenterComment on above:Result Comment: ADDED ONPerformed By: #### OHP, IOCAL ####[facility] Kgweafollkrv23[address] [place] [address] XR CHEST PORTABLEon 68-98-9250YO CHEST PORTABLEEXAMINATION:SINGLE XRAY VIEW OF THE CHEST01/22/2018 [...] recommended.Interpreted by:NADEGE Wrightigned by:Cassie Guzmán MD01/22/18inal result NormalUniversity Hospitals Tripoint Medical CenterBasic Metabolic Profon 01-21-2018(cont.) NormalUniversity Hospitals Tripoint Medical CenterComment on above:Result Comment: Average GFR for 50-59 years old: 93 mL/min/1.73sq mChronic Kidney Disease: <60 mL /min/1.73sq mKidney failure: <15 mL/min/1.73sq meGFR calculated using average adult body mass. Additional eGFR calculator available at:http://www.NetShoes.StylePuzzle/multiple_crcl_2012.htmPerformed By: #### BMP, BNP ####[facility] R[address]lseryj[address] [place] [address] Performed By: #### ERTPF, CONNER, LIP, LIVP, TEGCR ####[address] [place] [address] Anion gap 3 molar conc9 mmol/LNormal9-17[facility] CenterComment on above:Performed By: #### BMP, BNP ####[facility] Mdsslpdyfddn[address] [place] [address] Calcium mass conc8.1 mg/dLLow8.6-10.4[facility] CenterComment on above:Performed By: #### BMP, BNP ####[facility] Rtsrccgumgsy0208 [place] [address] Performed By: #### ERTPF, CONNER, LIP, LIVP, TEGCR ####[facility] Jkuiwsbdxslg5694 [place] [address] Chloride molar conc99 mmol/VHesxks89-158 [facility] CenterComment on above:Performed By: #### BMP, BNP ####[facility] E[address]iumfzgff4[address] [place] [address] Performed By: #### ERTPF, CONNER, LIP, LIVP, TEGCR ####[facility] Mzuxurkpoodk3285 [place] [address] EF8 molar conc27 mmol/FFwtttr68-87IsbomUniversity Hospitals Tripoint Medical CenterComment on above:Performed By: #### BMP, BNP ####[facility] Vclwcshbvepn7424 [place] [address] Creatinine mass conc0.54 mg/dLLow 0.70-1.20[facility] CenterComment on above:Performed By: #### BMP, BNP ####[facility] Gosnjdriyefj2312 [place] [address] GFR, Amer>60Normal>60[facility] Medical CenterComment on above: Performed By: #### BMP, BNP ####[address] [address] Performed By: #### ERTPF, CONNER, LIP, LIVP, TEGCR ####[facility] Hrxdxujtezfh3434 [place] [address] GFR,non Amer>60 Normal>60MerScripps Mercy HospitalComment on above:Performed By: #### BMP, BNP ####[facility] Lxvyiyvilvem4346 [place] [address] Performed By: #### ERTPF, CONNER, LIP, LIVP, TEGCR ####[facility] Zkzcykpmzyev3873 [place] [address] Glucose mass ebbt850 mg/gUCjbl63-41JrrmnWoodland Memorial HospitalComment on above:Performed By: #### BMP, BNP ####[facility] [address]zuipyctdyj[address] [place] [address] Potassium molar conc4.4 mmol/LNormal3.7-5.3MLos Alamitos Medical CenterComment on above:Performed By: #### BMP, BNP ####[facility] [address]zfclywnud[address] [place] [address] Sodium molar tssu340 mmol/NYmhcqa619-058RlmwyScripps Mercy HospitalComment on above:Performed By: #### BMP, BNP ####[facility] [address]bjgbkx[address] [place] [address] Urea nitrogen mass conc7 mg/dLNormal6-20[facility] CenterComment on above:Performed By: #### BMP, BNP ####[facility] Hglkaqhvssbb6180 [place] [address] Performed By: #### ERTPF, CONNER, LIP, LIVP, TEGCR ####[facility] Vkyrcjzojbub9414 [place] [address] Anion gap 3 molar conc10 mmol/LNormal9-17 [facility] CenterComment on above:Performed By: #### ERTPF, CONNER, LIP, LIVP, TEGCR ####[address] [place] [address] BI4 molar conc28 mmol/RArkcon35-77XlwzqUniversity Hospitals Tripoint Medical Center Comment on above:Performed By: #### ERTPF, CONNER, LIP, LIVP, TEGCR ####[address] [place] [address] Creatinine mass conc0.56 mg/dLLow0.70-1.20[facility] CenterComment on above:Performed By: #### ERTPF, CONNER, LIP, LIVP, TEGCR ####[address] [place] [address] Glucose mass conc97 mg/dYEshzgv80-55FfipyLos Alamitos Medical CenterComment on above:Performed By: #### ERTPF, CONNER, LIP, LIVP, TEGCR ####[address] [address] Potassium molar conc4.7 mmol/LNormal3.7-5.3MLos Alamitos Medical CenterComment on above:Performed By: #### ERTPF, CONNER, LIP, LIVP, TEGCR ####[facility] [address] [place] [address] Sodium molar fynd237 mmol/NWlxeyl059-505 [facility] CenterComment on above:Performed By: #### ERTPF, CONNER, LIP, LIVP, TEGCR ####[address] [place] [address] BUN/CRE RatioNOT REPORTEDNormal9-20[facility] CenterComment on above:Performed By: #### BMP, BNP ####[address] [address] Performed By: #### ERTPF, CONNER, LIP, LIVP, TEGCR ####[address] [address] Staging:NOT REPORTEDNormalUniversity Hospitals Tripoint Medical CenterComment on above: Performed By: #### BMP, BNP ####[address] [address] Performed By: #### ERTPF, CONNER, LIP, LIVP, TEGCR ####[facility] [address] [place] [address] Brain Natri. Peptideon 62-73-2927Cwhwabwaxry peptide B mass conc (Bld)02871 pg/mLHigh<300[facility] CenterComment on above:Result Comment: Pro-BNP results cannot be compared to BNP results.Performed By: #### BMP, BNP ####[facility] [address]blvlgqfjlly[address] [place] [address] Natriuretic peptide B mass conc (Bld) NormalUniversity Hospitals Tripoint Medical CenterComment on above:Result Comment: Pro-BNP Reference Range:Rule Out: <300[place]: Age <50 300-450 Age 50-75 300-900 Age >75 300-1800Usually represents mild to moderate HF but other cardiopulmonary causes cannot be ruled out.Rule In: Age <50 >450 Age 50-75 >900 Age >75 >1800 Performed By: #### BMP, BNP ####[address] [phone] 10-39-0897Bkklucojnyi distribution width Auto Ratio (RBC)15.8 %High11.8-14.4[facility] Medical CenterComment on above: Performed By: #### ERTPF, CONNER, LIP, LIVP, TEGCR ####[address] [address] Hematocrit Auto Volume Fraction (Bld)35.6 %Low40.7-50.3MLos Alamitos Medical CenterComment on above:Performed By: #### ERTPF, CONNER, LIP, LIVP, TEGCR ####[address] [address] Hemoglobin mass conc (Bld)12.1 g/dLLow13.0-17.0[facility] CenterComment on above:Performed By: #### ERTPF, CONNER, LIP, LIVP, TEGCR ####[address] [address] MCH Auto Entitic mass (RBC)31.1 feAnjxrz36.2-33.5[facility] Comment on above:Performed By: #### ERTPF, CONNER, LIP, LIVP, TEGCR ####[address] [address] MCHC Auto mass conc (RBC)34.0 g/yHUxldll00.4-34.8[facility] CenterComment on above: Performed By: #### ERTPF, CONNER, LIP, LIVP, TEGCR ####[address] [address] MCV Auto Entitic volume (RBC)91.5 fL Rwcykd63.6-102.9[facility] CenterComment on above:Performed By: #### ERTPF, CONNER, LIP, LIVP, TEGCR ####[address] [address] NRBC Automated0.0 per 100 WBCNormal0.0[facility] CenterComment on above:Performed By: #### ERTPF, CONNER, LIP, LIVP, TEGCR ####[address] [phone] Auto #/vol (Bld)See Reflexed IPF RcidbeEknuzg065-779EnhdeUniversity Hospitals Tripoint Medical Center Comment on above:Performed By: #### ERTPF, CONNER, LIP, LIVP, TEGCR ####[address] [address] RBC Auto #/vol (Bld)3.89 10*6/uLLow4.21-5.77[facility] CenterComment on above:Performed By: #### ERTPF, CONNER, LIP, LIVP, TEGCR ####[address] [address] WBC Auto #/vol (Bld)19.4 10*3/uLHigh3.5-11.3 [facility] CenterComment on above:Performed By: #### ERTPF, CONNER, LIP, LIVP, TEGCR ####[address] [address] Platelet mean volume Auto Entitic volume (Bld)NOT REPORTEDNormal 8.1-13.5[facility] CenterComment on above:Performed By: #### ERTPF, CONNER, LIP, LIVP, TEGCR ####[address] [address] [address] GUIDED THORACENTESISon 57-53-2235JZ GUIDED THORACENTESIS PROCEDURE:CTGUIDED RIGHT THORACENTESIS01/21/2018HISTORY:ORDERING SYSTEM PROVIDED HISTORY: pleural effusion. spoke with Dr. Landers PROVIDED HISTORY:pleural effusion. spoke with Dr. Ram:Informed consent was obtained after a detailed explanation of the procedureincluding risks, benefits, and alternatives. [place] protocol wasperformed. The right chest was prepped and draped insterile fashion andlocal anesthesia was achieved with lidocaine. An 5 Luxembourger needle sheath wasadvanced under ultrasound guidance into pleural effusion and thoracentesiswas performed; ~ 150 mL of mildly serosanguineous fluid was removed. A 2ndpuncture again using 5 Luxembourger needle sheath was used, a 0.018 inch guidewireintroduced, and a 6 Luxembourger pigtail catheter placed. Another 450 mL ofsimilar-appearing fluid was then aspirated. The patient tolerated theprocedure well.FINDINGS:A total of 700 mL was removed. As above, fluid was mildly serosanguineous.Small pneumothorax is noted following the procedure. Follow-up chest x-rayordered for 1 hour postprocedure. Patient has extensive emphysematouschanges.IMPRESSION: Successful CT guided thoracentesis. Small pneumothorax post thoracentesis.Chest x-ray ordered.Interpreted by:NADEGE Carrascoigned by:Fidel Link MD01/21/inal resultNormalMerScripps Mercy HospitalCalcium, Ionicon 82-05-4900Kxzxdxy mass conc1.17 mmol/LNormal 1.13-1.33[facility] CenterComment on above:Performed By: #### ERTPF, CONNER, LIP, LIVP, TEGCR ####[address] [place] [address] Creatinine,Random Uron 03-51-0333Lalbgwrxcq mass conc83.9 mg/aEYduvwq93.0-259.0MerScripps Mercy HospitalComment on above:Performed By: #### URCRE, URNA ####[facility] [address]uh[address]jfufzxw[address] [place] [address] Lactate Dehydrog, Flon 36-18-7556MH - Ppeau058 U/LNormalMerScripps Mercy HospitalComment on above:Result Comment: There are no normals for body fluid samples.Performed By: #### OHP, IOCAL ####[facility] [address] [place] [address] Type of Specimen.THORACENTESIS FLUID NormalUniversity Hospitals Tripoint Medical CenterComment on above:Performed By: #### OHP, IOCAL ####[facility] [address] [place] [address] Lactate Dehydrogenaseon 80-41-2281NOO enzyme act/ksp156 U/DStfg961-475HvwniUniversity Hospitals Tripoint Medical CenterComment on above:Performed By: #### OHP, IOCAL ####[facility] [address]rf[address] [place] [address] Lactic Acid,Whole Blon 38-17-8467Wiatmv Acid,Whole Bl2.6 mmol/LHigh0.7-2.1MercWoodland Memorial HospitalComment on above:Performed By: #### ERTPF, CONNER, LIP, LIVP, TEGCR ####[facility] [address] [place] [address] MRI CERVICAL SPINE WO CONTRASTon 62-48-5713CQW CERVICAL SPINE WO CONTRASTEXAMINATION:MRI OF THE CERVICAL [...] extending distally.Interpreted by:NADEGE Carreonigned by:Mariana Whitfield MD01/21/inal resultNormalMerScripps Mercy HospitalMagnesiumon 74-18-0210Cgwurzjqm mass conc1.9 mg/dLNormal1.6-2.6[facility] CenterComment on above:Performed By: #### CBC, IPF, IOCAL, LACWB, BMP, MG, SHERRY ####[facility] [address] [place] [address] PLT, Immature Fract.on 11-91-3267Nblpmcop, Fluoresc.135 k/mIDth970-429GwnirScripps Mercy HospitalComment on above:Result Comment: ORDERED BY LABPerformed By: #### ERTPF, CONNER, LIP, LIVP, TEGCR ####[facility] [address]mt[address]xhtutm[address]27 [place] [address] PLT, Immature Fract.3.9 %Normal1.1-10.3[facility] Medical CenterComment on above:Result Comment: ORDERED BY LABPerformed By: #### ERTPF, CONNER, LIP, LIVP, TEGCR ####[facility] [address]uy[address] [place] [address] Phosphorus, Inorg.on 23-49-5739Ohniazyhsc, Inorg.3.7 mg/dL Normal2.5-4.5[facility] CenterComment on above:Performed By: #### CBC, IPF, IOCAL, LACWB, BMP, MG, SHERRY ####[facility] [address] [place], [place] [phone], Totalon 47-54-9175Hcecrjk mass conc5.1 g/dLLow6.4-8.3MLos Alamitos Medical CenterComment on above:Performed By: #### OHP, IOCAL ####[facility] [address] [place], [place] [phone],Tot,Fluidon 44-39-4869Wmnobku mass conc1.6 g/dLNormal [facility] CenterComment on above:Result Comment: There are no normals for body fluid samples.Performed By: #### OHP, IOCAL ####[facility] Z[address]hlthoffp[address]8437 [place], [place] [phone], Random Uron 42-55-3088Qa Conc. Mzwuj245 mmol/LNormalUniversity Hospitals Tripoint Medical CenterComment on above:Result Comment: No normal range established.Performed By: #### URCRE, URNA ####[facility] [address]zz[address]obntp4[address] [place], [place] [phone] ABDOMEN (KUB) (SINGLE AP VIEW)on 75-94-6019KE ABDOMEN (KUB) (SINGLE AP VIEW) EXAMINATION:SINGLE SUPINE [...] 10 cm.Interpreted by:NADEGE Diazigned by:Raul Currie MD01/21/18FSt. Anthony's HospitalXR CHEST PORTABLEon [id number] CHEST PORTABLE EXAMINATION:SINGLE XRAY VIEW OF THE CHEST01/21/2018 5:24 pmCOMPARISON:AP chest from 01/21/2018 at 10:36HISTORY:ORDERING SYSTEM PROVIDED HISTORY: 1 hour post thoraTECHNOLOGIST PROVIDED HISTORY:1 hour post thoraSmall pneumothorax noted post CT-guided thoracentesis.FINDINGS:Overlying ECG monitor leads.Enteric tube tip and side hole below the lefthemidiaphragm. [place] and clips in the upper abdomen.Reduction size right pleural effusion. No significant pneumothoraxidentified. Extensive emphysematous and interstitial changes again noted, aswell as a left pleural effusion.Cardiomediastinal shadow on bony structures stable.IMPRESSION: Reduction right pleural effusion status post CT- guided thoracentesis. Nosignificant pneumothorax identified. Additional unchanged findings, as above.RECOMMENDATION:Chest x-ray follow-up in the a.m. assuming clinical stability.Interpreted by:NADEGE Carrascoigned by:Fidel Link MD01/21/18FSt. Anthony's HospitalXR CHEST PORTABLEEXAMINATION:SINGLE XRAY VIEW OF THE [...] and atelectasis.Interpreted by:NADEGE Diazigned by:Raul Currie MD01/21/18Final resultNormalUniversity Hospitals Tripoint Medical CenterAPTTon 02-66-5185nCEH Coag time (Bld)44.9 sHigh 20.5-30.5[facility] CenterComment on above:Performed By: #### ERTPF, CONNER, LIP, LIVP, TEGCR ####[address] [place] [address] Basic Metabolic Profon 01-20-2018(cont.)NormalUniversity Hospitals Tripoint Medical CenterComment on above:Result Comment: Average GFR for 50-59 years old: 93 mL/min/1.73sq mChronic Kidney Disease: <60 mL/min/1.73sq mKidney failure: <15 mL/min/1.73sq meGFR calculated using average adult body mass. Ad ditional eGFR calculator available at:http://www.raksul/multiple_crcl_2012.htmPerformed By: #### ERTPF, CONNER, LIP, LIVP, TEGCR ####[address]jamzbgov[address] [place] 43[address] [phone] gap 3 molar conc18 mmol/LHigh9-17[facility] CenterComment on above:Performed By: #### ERTPF, CONNER, LIP, LIVP, TEGCR ####[address]fvyaoftivs[address]1 [place] [address] Calcium mass conc7.5 mg/dLLow8.6-10.4[facility] CenterComment on above:Performed By: #### ERTPF, CONNER, LIP, LIVP, TEGCR ####[facility] Fz[address]qsqpenp[address] [place] [address] Chloride molar iycj836 mmol/CIjhtnf08-087ZtyziUniversity Hospitals Tripoint Medical CenterComment on above:Performed By: #### ERTPF, CONNER, LIP, LIVP, TEGCR ####[facility] [address]yzmtbrx85[address] [place] [address] NT9 molar conc 17 mmol/AHjz56-37PcannScripps Mercy HospitalComment on above:Performed By: #### ERTPF, CONNER, LIP, LIVP, TEGCR ####[facility] [address] [place] [address] Creatinine mass conc0.38 mg/dLLow0.70-1.20MerScripps Mercy HospitalComment on above:Performed By: #### ERTPF, CONNER, LIP, LIVP, TEGCR ####[place] [address] GFR, Amer>60Normal>60[facility] CenterComment on above:Performed By: #### ERTPF, CONNER, LIP, LIVP, TEGCR ####[place] [address] GFR,non Amer>60Normal>60[facility] CenterComment on above:Performed By: #### ERTPF, CONNER, LIP, LIVP, TEGCR ####[address] [address] Glucose mass conc80 mg/yCGyvjcp93-14Sl[facility] Regional Medical CenterComment on above:Performed By: #### ERTPF, CONNER, LIP, LIVP, TEGCR ####[facility] [address] [place] [address] Potassium molar conc4.3 mmol/LNormal3.7-5.3[facility] Medical CenterComment on above:Performed By: #### ERTPF, CONNER, LIP, LIVP, TEGCR ####[address] [address] Sodium molar jcqo953 mmol/BIlwxkx952-685JoamgScripps Mercy HospitalComment on above:Performed By: #### ERTPF, CONNER, LIP, LIVP, TEGCR ####[facility] Wq[address] [place], [place] [phone] nitrogen mass conc6 mg/dLNormal6-20 [facility] CenterComment on above:Performed By: #### ERTPF, CONNER, LIP, LIVP, TEGCR ####[address] [place] [address] [phone]/CRE RatioNOT REPORTEDNormal9-20[facility] CenterComment on above:Performed By: #### ERTPF, CONNER, LIP, LIVP, TEGCR ####[address] [phone]:NOT REPORTED NormalUniversity Hospitals Tripoint Medical CenterComment on above:Performed By: #### ERTPF, CONNER, LIP, LIVP, TEGCR ####[address] [address] (cont.)NormalUniversity Hospitals Tripoint Medical CenterComment on above: Result Comment: Average GFR for 50-59 years old: 93 mL/min/1.73sq mChronic Kidney Disease: <60 mL/min/1.73sq mKidney failure: <15 mL/min/1.73sq meGFR calculated using average adult body mass. Additional eGFR calculator available at:http://www.NetShoes.com/multiple_crcl_2012.htmPerformed By: #### ERTPF, CONNER, LIP, LIVP, TEGCR ####[address] [place] [address] Anion gap 3 molar conc17 mmol/LNormal9-17[facility] CenterComment on above:Performed By: #### ERTPF, CONNER, LIP, LIVP, TEGCR ####[facility] Lnfowxonogpn[address] [place], [place] [phone] mass conc7.1 mg/dLLow8.6-10.4[facility] CenterComment on above: Performed By: #### ERTPF, CONNER, LIP, LIVP, TEGCR ####[facility] [address]awpyzfixme[address]38 [place] [address] Chloride molar kizw076 mmol/VZgkdhh82-285 [facility] CenterComment on above:Performed By: #### ERTPF, CONNER, LIP, LIVP, TEGCR ####[address] [address] PC7 molar conc16 mmol/QUwh49-18TmaioUniversity Hospitals Tripoint Medical Center Comment on above:Performed By: #### ERTPF, CONNER, LIP, LIVP, TEGCR ####[address] [address] Creatinine mass conc0.44 mg/dLLow0.70-1.20[facility] CenterComment on above:Performed By: #### ERTPF, CONNER, LIP, LIVP, TEGCR ####[address] [address] GFR, Amer>60Normal>60[facility] CenterComment on above:Performed By: #### ERTPF, CONNER, LIP, LIVP, TEGCR ####[address] [address] GFR,non Amer>60 Normal>60[facility] Medical CenterComment on above:Performed By: #### ERTPF, CONNER, LIP, LIVP, TEGCR ####[address] [address] Glucose mass conc89 mg/bUEporco57-56GupnqLos Alamitos Medical CenterComment on above:Performed By: #### ERTPF, CONNER, LIP, LIVP, TEGCR ####[address] [address] Potassium molar conc4.5 mmol/LNormal3.7-5.3[facility] Medical CenterComment on above:Performed By: #### ERTPF, CONNER, LIP, LIVP, TEGCR ####[place], [place] [phone] molar qvus183 mmol/ATuqwqr447-977AhgouUniversity Hospitals Tripoint Medical CenterComment on above:Performed By: #### ERTPF, CONNER, LIP, LIVP, TEGCR ####[place] [address] Urea nitrogen mass conc5 mg/dLLow6-20[facility] CenterComment on above:Performed By: #### ERTPF, CONNER, LIP, LIVP, TEGCR ####[place], [place] [phone]/CRE RatioNOT REPORTEDNormal9-20[facility] CenterComment on above:Performed By: #### ERTPF, CONNER, LIP, LIVP, TEGCR ####[place] [address] Staging:NOT REPORTEDNormalUniversity Hospitals Tripoint Medical CenterComment on above: Performed By: #### ERTPF, CONNER, LIP, LIVP, TEGCR ####[place], [place] [address])[phone] with Diffon 46-26-0884Tut. Basophil 0.00 k/uLNormal0.0-0.2MLos Alamitos Medical CenterComment on above:Performed By: #### ERTPF, CONNER, LIP, LIVP, TEGCR ####[place], [place] [phone].Imm.Granulocyte0.02 k/uLNormal0.00-0.30[facility] CenterComment on above:Performed By: #### ERTPF, CONNER, LIP, LIVP, TEGCR ####[address] [address] Abs.Neutrophil (Seg)0.90 k/uLLow1.8-7.7[facility] CenterComment on above:Performed By: #### ERTPF, CONNER, LIP, LIVP, TEGCR ####[address] [address] Basophils/100 WBC Auto (Bld)0 %Normal0-2MercWoodland Memorial HospitalComment on above:Performed By: #### ERTPF, CONNER, LIP, LIVP, TEGCR ####[place] [address] Eosinophils Auto #/vol (Bld)0.00 10*3/uLNormal0.0-0.4[facility] CenterComment on above:Performed By: #### ERTPF, CONNER, LIP, LIVP, TEGCR ####[place] [address] Eosinophils/100 WBC Auto (Bld)0 %Low1-4[facility] CenterComment on above:Performed By: #### ERTPF, CONNER, LIP, LIVP, TEGCR ####[address] [address] Immature granulocytes #/vol (Bld)1 %Idly7WfgvcUniversity Hospitals Tripoint Medical CenterComment on above:Performed By: #### ERTPF, CONNER, LIP, LIVP, TEGCR ####[address] [address] Lymphocytes Auto #/vol (Bld)0.47 10*3/uLLow 1.0-4.8[facility] CenterComment on above:Performed By: #### ERTPF, CONNER, LIP, LIVP, TEGCR ####[address] [place] [address] Lymphocytes/100 WBC Auto (Bld)31 %Uxtxbq94-39NlzteUniversity Hospitals Tripoint Medical CenterComment on above:Performed By: #### ERTPF, CONNER, LIP, LIVP, TEGCR ####[address] [address] Monocytes Auto #/vol (Bld)0.11 10*3/uLNormal0.1-0.8[facility] CenterComment on above:Performed By: #### ERTPF, CONNER, LIP, LIVP, TEGCR ####[address] [address] Monocytes/100 WBC Auto (Bld)7 %Normal1-7 [facility] CenterComment on above:Performed By: #### ERTPF, CONNER, LIP, LIVP, TEGCR ####[address] [address] Morphology Interp Eduard (Bld)ANISOCYTOSIS PRESENTNormalUniversity Hospitals Tripoint Medical CenterComment on above:Performed By: #### ERTPF, CONNER, LIP, LIVP, TEGCR ####[address] [address] Neutrophil (Seg)61 %Jtyegi49-87KaceeUniversity Hospitals Tripoint Medical CenterComment on above: Performed By: #### ERTPF, CONNER, LIP, LIVP, TEGCR ####[address] [address] NRBC Automated0.0 per 100 WBCNormal0.0 [facility] CenterComment on above:Performed By: #### ERTPF, CONNER, LIP, LIVP, TEGCR ####[address] [address] Platelet mean volume Auto Entitic volume (Bld)9.9 fLNormal8.1-13.5 [facility] CenterComment on above:Performed By: #### ERTPF, CONNER, LIP, LIVP, TEGCR ####[address] [address] Platelets Auto #/vol (Bld)176 10*3/kNUoiqqu013-822OojmvUniversity Hospitals Tripoint Medical CenterComment on above:Performed By: #### ERTPF, CONNER, LIP, LIVP, TEGCR ####[address] [address] WBC Auto #/vol (Bld)1.5 10*3/uLLow3.5-11.3MLos Alamitos Medical CenterComment on above:Performed By: #### ERTPF, CONNER, LIP, LIVP, TEGCR ####[address] [address] Erythrocyte distribution width Auto Ratio (RBC)16.1 %High11.8-14.4[facility] Comment on above:Performed By: #### ERTPF, CONNER, LIP, LIVP, TEGCR ####[address] [address] Hematocrit Auto Volume Fraction (Bld)38.6 %Low40.7-50.3MLos Alamitos Medical CenterComment on above:Performed By: #### ERTPF, CONNER, LIP, LIVP, TEGCR ####[address] [address] Hemoglobin mass conc (Bld)12.4 g/dLLow 13.0-17.0[facility] CenterComment on above:Performed By: #### ERTPF, CONNER, LIP, LIVP, TEGCR ####[address] [address] MCH Auto Entitic mass (RBC)31.2 zqYqtzxh85.2-33.5[facility] CenterComment on above:Performed By: #### ERTPF, CONNER, LIP, LIVP, TEGCR ####[facility] Rjtopbbs[address]by[address] [place] [address] MCHC Auto mass conc (RBC)32.1 g/sYVxhesl87.4-34.8[facility] Comment on above:Performed By: #### ERTPF, CONNER, LIP, LIVP, TEGCR ####Filomena [address] [place] [address] MCV Auto Entitic volume (RBC)97.2 wLOtoftr43.6-102.9[facility] CenterComment on above: Performed By: #### ERTPF, CONNER, LIP, LIVP, TEGCR ####[place] [address] RBC Auto #/vol (Bld)3.97 10*6/uLLow 4.21-5.77[facility] CenterComment on above:Performed By: #### ERTPF, CONNER, LIP, LIVP, TEGCR ####[facility]ine Ezrrjh[address]md[address] [place] [address] Auto Diff PerformedNOT REPORTEDNoalUniversity Hospitals Tripoint Medical CenterComment on above:Performed By: #### ERTPF, CONNER, LIP, LIVP, TEGCR ####[place] [address] Platelets Auto #/vol (Bld)NOT REPORTEDFairfield Medical CenterComment on above: Performed By: #### ERTPF, CONNER, LIP, LIVP, TEGCR ####[facility] [address] [place] [address] RBC morphology finding Nom (Bld)NOT REPORTEDFairfield Medical CenterComment on above:Performed By: #### ERTPF, CONNER, LIP, LIVP, TEGCR ####[address] [address] WBC MorphologyNOT REPORTEDNormalMerScripps Mercy HospitalComment on above:Performed By: #### ERTPF, CONNER, LIP, LIVP, TEGCR ####[address] [address] Abs. Basophil0.00 k/uL Normal0.0-0.2MLos Alamitos Medical CenterComment on above:Performed By: #### ERTPF, CONNER, LIP, LIVP, TEGCR ####[address] [address] Abs.Imm.Granulocyte0.00 k/uLNormal0.00-0.30[facility] CenterComment on above:Performed By: #### ERTPF, CONNER, LIP, LIVP, TEGCR ####[address] [address] Abs.Neutrophil (Seg)0.80 k/uLLow1.8-7.7[facility] CenterComment on above: Performed By: #### ERTPF, CONNER, LIP, LIVP, TEGCR ####[address] [address] Basophils/100 WBC Auto (Bld)0 %Normal0-2 [facility] CenterComment on above:Performed By: #### ERTPF, CONNER, LIP, LIVP, TEGCR ####[address] [address] Eosinophils Auto #/vol (Bld)0.00 10*3/uLNormal0.0-0.4[facility] CenterComment on above:Performed By: #### ERTPF, CONNER, LIP, LIVP, TEGCR ####[address] [address] Eosinophils/100 WBC Auto (Bld)0 %Low1-4[facility] CenterComment on above:Performed By: #### ERTPF, CONNER, LIP, LIVP, TEGCR ####[address] [address] Immature granulocytes #/vol (Bld)0 %Mbqzco7HvcvvUniversity Hospitals Tripoint Medical CenterComment on above:Performed By: #### ERTPF, CONNER, LIP, LIVP, TEGCR ####[address] [address] Lymphocytes Auto #/vol (Bld)0.66 10*3/uLLow 1.0-4.8[facility] CenterComment on above:Performed By: #### ERTPF, CONNER, LIP, LIVP, TEGCR ####[address] [address] Lymphocytes/100 WBC Auto (Bld)39 %Mctemy36-91KrpqoUniversity Hospitals Tripoint Medical CenterComment on above:Performed By: #### ERTPF, CONNER, LIP, LIVP, TEGCR ####[address] [address] Monocytes Auto #/vol (Bld)0.24 10*3/uLNormal0.1-0.8[facility] CenterComment on above:Performed By: #### ERTPF, CONNER, LIP, LIVP, TEGCR ####[address] [address] Monocytes/100 WBC Auto (Bld)14 %High1-7 [facility] CenterComment on above:Performed By: #### ERTPF, CONNER, LIP, LIVP, TEGCR ####[address] [address] Morphology Interp Eduard (Bld)NormalNormalUniversity Hospitals Tripoint Medical CenterComment on above:Performed By: #### ERTPF, CONNER, LIP, LIVP, TEGCR ####[place] [address] Neutrophil (Seg)47 % Idjxfr03-26NcalyUniversity Hospitals Tripoint Medical CenterComment on above:Performed By: #### ERTPF, CONNER, LIP, LIVP, TEGCR ####[place] [address] NRBC Automated0.0 per 100 WBCNormal0.0[facility] CenterComment on above:Performed By: #### ERTPF, CONNER, LIP, LIVP, TEGCR ####[place] [address] Platelet mean volume Auto Entitic volume (Bld)9.6 fLNormal8.1-13.5[facility] CenterComment on above:Performed By: #### ERTPF, CONNER, LIP, LIVP, TEGCR ####[place] [address] Platelets Auto #/vol (Bld)171 10*3/tOSxljgv186-025CiobwScripps Mercy HospitalComment on above: Performed By: #### ERTPF, CONNER, LIP, LIVP, TEGCR ####[place] [address] WBC Auto #/vol (Bld)1.7 10*3/uLLow 3.5-11.3MLos Alamitos Medical CenterComment on above:Performed By: #### ERTPF, CONNER, LIP, LIVP, TEGCR ####[address] [address] Erythrocyte distribution width Auto Ratio (RBC)15.5 %High 11.8-14.4[facility] CenterComment on above:Performed By: #### ERTPF, CONNER, LIP, LIVP, TEGCR ####Filomena [address] [place] [address] Hematocrit Auto Volume Fraction (Bld)38.5 %Low40.7-50.3MercWoodland Memorial HospitalComment on above:Performed By: #### ERTPF, CONNER, LIP, LIVP, TEGCR ####[place] [address] Hemoglobin mass conc (Bld)12.5 g/dLLow13.0-17.0[facility] Comment on above:Performed By: #### ERTPF, CONNER, LIP, LIVP, TEGCR ####[address] [address] MCH Auto Entitic mass (RBC)31.2 jvNmvuuv07.2-33.5[facility] CenterComment on above: Performed By: #### ERTPF, CONNER, LIP, LIVP, TEGCR ####[place] [address] MCHC Auto mass conc (RBC)32.5 g/dLNormal 28.4-34.8[facility] CenterComment on above:Performed By: #### ERTPF, CONNER, LIP, LIVP, TEGCR ####[address] [address] MCV Auto Entitic volume (RBC)96.0 lNOqibfr26.6-102.9[facility] CenterComment on above:Performed By: #### ERTPF, CONNER, LIP, LIVP, TEGCR ####[address] [address] RBC Auto #/vol (Bld)4.01 10*6/uLLow4.21-5.77[facility] CenterComment on above:Performed By: #### ERTPF, CONNER, LIP, LIVP, TEGCR ####[facility] [address] [place] [address] Auto Diff PerformedNOT REPORTEDFairfield Medical CenterComment on above:Performed By: #### ERTPF, CONNER, LIP, LIVP, TEGCR ####[facility] [address]kmxzhj[address] [place] [address] Platelets Auto #/vol (Bld)NOT REPORTEDFairfield Medical CenterComment on above:Performed By: #### ERTPF, CONNER, LIP, LIVP, TEGCR ####[facility] [address]bvgc[address] [place] [address] RBC morphology finding Nom (Bld)NOT REPORTEDFairfield Medical Center Comment on above:Performed By: #### ERTPF, CONNER, LIP, LIVP, TEGCR ####[facility] [address]pc[address] [place] [address] WBC MorphologyNOT REPORTEDFairfield Medical CenterComment on above:Performed By: #### ERTPF, CONNER, LIP, LIVP, TEGCR ####Sarithay [address]wc[address] [place] [address] Calcium, Ionicon 17-92-8743Apbyinv mass conc1.13 mmol/L Normal1.13-1.33[facility] CenterComment on above:Performed By: #### ERTPF, CONNER, LIP, LIVP, TEGCR ####[facility] [address]el[address] [place] [address] Calcium mass conc1.06 mmol/LLow1.13-1.33[facility] CenterComment on above:Performed By: #### ERTPF, CONNER, LIP, LIVP, TEGCR ####[facility] [address]sqbmb[address] [place] [address] Calcium mass conc1.36 mmol/LHigh1.13-1.33[facility] CenterComment on above: Performed By: #### ERTPF, CONNER, LIP, LIVP, TEGCR ####[facility] [address]wcnxc[address] [place] [address] Fibrinogenon 94-30-8478Znimlfuezt<80 Critically kfa761-998HdsbxUniversity Hospitals Tripoint Medical CenterComment on above:Result Comment: TESTCONFIRMEDPerformed By: #### ERTPF, CONNER, LIP, LIVP, TEGCR ####[facility] [address] [place] [address] Lactic Acid,Whole Blon 85-92-4299Ijggvg Acid,Whole Bl3.2 mmol/LHigh0.7-2.1MLos Alamitos Medical CenterComment on above:Performed By: #### ERTPF, CONNER, LIP, LIVP, TEGCR ####[facility] [address] [place] [address] Lactic Acid,Whole Bl5.6 mmol/LHigh0.7-2.1MLos Alamitos Medical CenterComment on above:Performed By: #### ERTPF, CONNER, LIP, LIVP, TEGCR ####[facility] [address]nyiymv[address] [place] [address] Lactic Acid,Whole Bl5.9 mmol/LHigh0.7-2.1MLos Alamitos Medical CenterComment on above:Performed By: #### ERTPF, CONNER, LIP, LIVP, TEGCR ####[facility] [address] [place] [address] Liver Profile on 79-36-0164Vlqbdwv mass conc2.3 g/dLLow3.5-5.2MLos Alamitos Medical Center Comment on above:Performed By: #### ERTPF, CONNER, LIP, LIVP, TEGCR ####[facility] [address] [place] [address] Albumin/Globulin mass ratio1.4 {ratio}Normal1.0-2.5[facility] CenterComment on above: Performed By: #### ERTPF, CONNER, LIP, LIVP, TEGCR ####[address] [address] Alkaline Phos54 U/JOtupfs34-071WcxbcUniversity Hospitals Tripoint Medical CenterComment on above:Performed By: #### ERTPF, CONNER, LIP, LIVP, TEGCR ####[address] [address] ALT enzyme act/vol22 U/LNormal5-41[facility] CenterComment on above: Performed By: #### ERTPF, CONNER, LIP, LIVP, TEGCR ####[address] [address] AST enzyme act/vol48 U/LHigh<40[facility] CenterComment on above:Performed By: #### ERTPF, CONNER, LIP, LIVP, TEGCR ####[address] [address] Bilirubin Ql (U)0.97 mg/dLNormal0.3-1.2MLos Alamitos Medical CenterComment on above:Performed By: #### ERTPF, CONNER, LIP, LIVP, TEGCR ####[address] [address] Bilirubin, Indirect0.24 mg/dLNormal0.00-1.00[facility] CenterComment on above:Performed By: #### ERTPF, CONNER, LIP, LIVP, TEGCR ####[facility] [address] [place] [address] Bilirubin.direct mass conc0.73 mg/dLHigh<0.31 [facility] CenterComment on above:Performed By: #### ERTPF, CONNER, LIP, LIVP, TEGCR ####[facility] [address] [place] [address] Protein mass conc3.9 g/dLLow6.4-8.3[facility] Medical CenterComment on above:Performed By: #### ERTPF, CONNER, LIP, LIVP, TEGCR ####[address] [address] Globulin Calculated mass conc (S)NOT REPORTEDNormal1.5-3.8MerScripps Mercy HospitalComment on above:Performed By: #### ERTPF, CONNER, LIP, LIVP, TEGCR ####[address] [address] MRSA, DNA, Nasalon 71-90-2936NUAD, DNA, NasalNEGATIVE: MRSA DNA not detected by nucleic acid amplification.NormalNMRSAAUniversity Hospitals Tripoint Medical CenterComment on above: Result Comment: Results should be used as an adjunct to nosocomial control efforts to identify patients needing enhanced precautions.The test is not intended to identify patients with staphylococcal infections. Results should not be used to guide or monitor treatment for MRSA infections.Performed By: #### ERTPF, CONNER, LIP, LIVP, TEGCR ####[address] [phone] Description.NASAL SWABNormalMerScripps Mercy HospitalComment on above:Performed By: #### ERTPF, CONNER, LIP, LIVP, TEGCR ####[address] [phone] 85-88-3442Shnyzydfy mass conc1.7 mg/dLNormal1.6-2.6MLos Alamitos Medical CenterComment on above:Performed By: #### ERTPF, CONNER, LIP, LIVP, TEGCR ####[address] [address] Magnesium mass conc1.2 mg/dLLow1.6-2.6[facility] Medical CenterComment on above:Performed By: #### ERTPF, CONNER, LIP, LIVP, TEGCR ####[facility] [address] [place], [place] [address]84[address] Magnesium mass conc1.1 mg/dLLow1.6-2.6[facility] Medical CenterComment on above:Performed By: #### ERTPF, CONNER, LIP, LIVP, TEGCR ####[facility] [address] [place], [place] [address] OPERATIVE REPORTon 29-78-7460MUPNCPAPF REPORT[address] [address] OPERATIVE REPORTPATIENT NAME: ALEJO FLOYD : 1960MED REC NO: [id number] [facility]: [id number] ADMIT DATE: 01/19/2018PROVIDER: Ele MottDATE OF PROCEDURE: [...] L1 burst fracture. [facility]. On [facility],the [...] we turned our attention to performing a rnur-ui-ydmy ileocolonicanastomosis. A EWELINA blue load 75 was [...] was made using #0 looped PDS from pqlbersj-ca-ozfplfsm nkfujvhkfta-up-pcstcnos tying in the m iddle. Once the [...] of the procedure.ELE MOTTD: 01/20/2018 4:44:47 MARIE_DUSTINRA_TJob#: [id number] Doc#: [id number]: Morgan TaylorFairfield Medical CenterOpen Heart Panelon 08-42-5387Aucvv TestINFORMATION NOT PROVIDEDFairfield Medical CenterComment on above:Performed By: #### ERTPF, CONNER, LIP, LIVP, TEGCR ####[facility] [address]ak[address] [place] [address] Body Temp.37.0Normal [facility] CenterComment on above:Performed By: #### ERTPF, CONNER, LIP, LIVP, TEGCR ####[facility] [address] [place] [address] Carboxy Hgb3.8 %Normal0-5[facility] CenterComment on above:Result Comment: Reference Range:Non-Smokers 0-2%Average Smoker 2- 4%Heavy Smoker <10%Performed By: #### ERTPF, CONNER, LIP, LIVP, TEGCR ####[facility] [address]kgsopkofl[address] [place] [phone] NOT PROVIDEDFairfield Medical CenterComment on above:Performed By: #### ERTPF, CONNER, LIP, LIVP, TEGCR ####[facility] Qdrfgjbougrc7498 [place] [address] Glucose mass conc73 mg/hPEiw66-104OaloaUniversity Hospitals Tripoint Medical CenterComment on above:Performed By: #### ERTPF, CONNER, LIP, LIVP, TEGCR ####[facility] Le[address]fx[address] [place] [address] JIO4 molar conc (Bld)13.7 mmol/HEgt00-51TqddzUniversity Hospitals Tripoint Medical CenterComment on above: Performed By: #### ERTPF, CONNER, LIP, LIVP, TEGCR ####[facility] Obwpwmantxfi[address] [place] [address] Negative Base Tnzzeg90.6 mmol/LHigh 0.0-2.0[facility] CenterComment on above:Performed By: #### ERTPF, CONNER, LIP, LIVP, TEGCR ####[facility] [address]qhe[address] [place] [address] Oxygen ppres (BldA)198.0 mm[Hg]Qlvt71-09PypmlUniversity Hospitals Tripoint Medical CenterComment on above:Performed By: #### ERTPF, CONNER, LIP, LIVP, TEGCR ####[facility] [address]lnqxzfza[address] [place] [address] Oxygen saturation in Blood98.8 %Arkitw22-187TgwfeUniversity Hospitals Tripoint Medical CenterComment on above:Performed By: #### ERTPF, CONNER, LIP, LIVP, TEGCR ####[facility] Imtuz[address]uellf[address] [place] [address] vNS204.1 uaTxLvru41-12AcaloUniversity Hospitals Tripoint Medical CenterComment on above:Performed By: #### ERTPF, CONNER, LIP, LIVP, TEGCR ####[facility] Vtgdebjmccjm3813 [place] [address] pH (Bld)7.092 [pH]Critically low7.350-7.450[facility] CenterComment on above: Performed By: #### ERTPF, CONNER, LIP, LIVP, TEGCR ####Filomena [address]zvpozldy6654 [place] [address] Chloride molar xcuy293 mmol/TZzwp68-351 [facility] CenterComment on above:Performed By: #### ERTPF, CONNER, LIP, LIVP, TEGCR ####[address] [address] Hematocrit Auto Volume Fraction (Bld)36.2 %Fairfield Medical CenterComment on above:Performed By: #### ERTPF, CONNER, LIP, LIVP, TEGCR ####Filomena [address] [address] Hemoglobin mass conc (Bld)11.7 g/dLNormalUniversity Hospitals Tripoint Medical CenterComment on above: Performed By: #### ERTPF, CONNER, LIP, LIVP, TEGCR ####[address] [address] Potassium molar conc4.2 mmol/LNormal 3.6-5.0[facility] CenterComment on above:Performed By: #### ERTPF, CONNER, LIP, LIVP, TEGCR ####[address] [address] Sodium molar axvi388 mmol/BVqo003-750ZnoipUniversity Hospitals Tripoint Medical CenterComment on above:Performed By: #### ERTPF, CONNER, LIP, LIVP, TEGCR ####[address] [address] PTon 69-80-2845FAV Coag RelTime (PPP)1.6 {INR}NormalUniversity Hospitals Tripoint Medical Center Comment on above:Result Comment: Therapeutic Range: Moderate Anticoagulant Intensity: INR = 2.0-3.0 High Anticoagulant Intensity: INR = 2.5-3.5Performed By: #### ERTPF, CONNER, LIP, LIVP, TEGCR ####Filomena [address] [phone] time (PT) Coag time (PPP)16.9 sHigh 9.0-12.0[facility] CenterComment on above:Performed By: #### ERTPF, CONNER, LIP, LIVP, TEGCR ####Sarithaernie [address] [place] [phone], Inorg.on 66-35-2524Ibrmwxmore, Inorg.3.1 mg/dL Normal2.5-4.5[facility] CenterComment on above:Performed By: #### ERTPF, CONNER, LIP, LIVP, TEGCR ####[address] [address] Phosphorus, Inorg.3.5 mg/dLNormal2.5-4.5[facility] CenterComment on above:Performed By: #### ERTPF, CONNER, LIP, LIVP, TEGCR ####[address] [address] Platelet Count on 34-96-1092Onvyreyvx Auto #/vol (Bld)142 10*3/kGClejgk114-153PvzjgUniversity Hospitals Tripoint Medical CenterComment on above:Performed By: #### ERTPF, CONNER, LIP, LIVP, TEGCR ####[address] [address] Platelets,Transfuseon 68-96-8249Mgmfwxsvu,TransfuseUnit Number [id number] Blood Component Type Leukocyte Reduced Irradiated Plateletpheresis Unit Division 00 Status of Unit TRANSFUSED Transfusion Status OK TO TRANSFUSENormalUniversity Hospitals Tripoint Medical CenterComment on above:Performed By: #### TPLT ####[address] [address] TEG, Rapid Citratedon 37-67-1817LID WRA051.0 cmaYulopa46-857TomcnUniversity Hospitals Tripoint Medical CenterComment on above:Performed By: #### ERTPF, CONNER, LIP, LIVP, TEGCR ####[address] [address] Angle, Rapid TEG62.2 deg Oyc00-93TxhfsUniversity Hospitals Tripoint Medical CenterComment on above:Performed By: #### ERTPF, CONNER, LIP, LIVP, TEGCR ####[address] [address] EPL TEG0.6 %Normal0.0-15.0[facility] Comment on above:Performed By: #### ERTPF, CONNER, LIP, LIVP, TEGCR ####[address] [phone] Therapy:None NormalUniversity Hospitals Tripoint Medical CenterComment on above:Performed By: #### ERTPF, CONNER, LIP, LIVP, TEGCR ####[address] [address] K (Kinetics) rTEG2.4 minHigh1.0-2.0[facility] CenterComment on above:Performed By: #### ERTPF, CONNER, LIP, LIVP, TEGCR ####[address] [phone] (Lysis) TEG0.6 % Normal0-8[facility] Medical CenterComment on above:Performed By: #### ERTPF, CONNER, LIP, LIVP, TEGCR ####[address] [address] MA Rapid TEG54.9 dgKeijru21-24ZticnUniversity Hospitals Tripoint [facility] Center Comment on above:Performed By: #### ERTPF, CONNER, LIP, LIVP, TEGCR ####Filomena [address] [place] [address] R(Reaction Time)rTEG0.7 minNormal0.0-1.0[facility] CenterComment on above:Performed By: #### ERTPF, CONNER, LIP, LIVP, TEGCR ####[address] [address] TEG CommentACT is the only FDA approved component of the Rapid TEG.NormalUniversity Hospitals Tripoint Medical CenterComment on above:Performed By: #### ERTPF, CONNER, LIP, LIVP, TEGCR ####[address] [address] ACT QEQ259.0 xigGdfy32-023LyptoUniversity Hospitals Tri[facility] Center Comment on above:Performed By: #### ERTPF, CONNER, LIP, LIVP, TEGCR ####[place] [address] Angle, Rapid TEG45.2 deg Xuj38-28HqatuUniversity Hospitals Tripoint Medical CenterComment on above:Performed By: #### ERTPF, CONNER, LIP, LIVP, TEGCR ####[address] [address] EPL TEG0 %Normal0.0-15.0[facility] Comment on above:Performed By: #### ERTPF, CONNER, LIP, LIVP, TEGCR ####[address] [address] Heparin Therapy: INFORMATION NOT PROVIDEDNormalUniversity Hospitals Tripoint Medical CenterComment on above: Performed By: #### ERTPF, CNONER, LIP, LIVP, TEGCR ####[address] [address] K (Kinetics) rTEG4.6 minHigh1.0-2.0[facility] CenterComment on above:Performed By: #### ERTPF, CONNER, LIP, LIVP, TEGCR ####[facility] [address] [place] [address] LY30 (Lysis) TEG0 %Normal0-8[facility] Medical CenterComment on above: Performed By: #### ERTPF, CONNER, LIP, LIVP, TEGCR ####[facility] [address] [place] [address] [phone] Rapid TEG41.9 yxItj57-80QztipUniversity Hospitals Tripoint Medical CenterComment on above:Performed By: #### ERTPF, CONNER, LIP, LIVP, TEGCR ####[place] [address] R(Reaction Time)rTEG1.4 minHigh0.0-1.0[facility] CenterComment on above:Performed By: #### ERTPF, CONNER, LIP, LIVP, TEGCR ####[facility] Cent[facility] [address] [phone] CommentACT is the only FDA approved component of the Rapid TEG.NormalUniversity Hospitals Tripoint Medical CenterComment on above:Performed By: #### ERTPF, CONNER, LIP, LIVP, TEGCR ####[address] [address] UA w/Reflex Cultureon 04-10-5287Yccfoltfiui Acid,UrNegativeNormalNEGUniversity Hospitals Tripoint Medical Center Comment on above:Performed By: #### ERTPF, CONNER, LIP, LIVP, TEGCR ####[facility] [address] [place] [address] [phone], SemiQt,Ur NegativeNormalNEGUniversity Hospitals Tripoint Medical CenterComment on above:Performed By: #### ERTPF, CONNER, LIP, LIVP, TEGCR ####[facility] [address] [place] [address] [phone]rcy Community Regional Medical Center Comment on above:Result Comment: INTERPRET WITH CAUTION DUE TO INTENSE COLOR OF URINE.Performed By: #### ERTPF, CONNER, LIP, LIVP, TEGCR ####[address] [address] Glucose,Semi-qnt,UrNegativeNormalNEG [facility] CenterComment on above:Performed By: #### ERTPF, CONNER, LIP, LIVP, TEGCR ####[address] [address] Hemoglobin, UrNegativeSaint PeterNEGUniversity Hospitals Tripoint Medical Center Comment on above:Performed By: #### ERTPF, CONNER, LIP, LIVP, TEGCR ####[address] [phone] Esterase NegativeNormalNEGUniversity Hospitals Tripoint Medical CenterComment on above:Performed By: #### ERTPF, CONNER, LIP, LIVP, TEGCR ####[address] [phone],UrNegativeNormalNEGUniversity Hospitals Tripoint Medical Center Comment on above:Performed By: #### ERTPF, CONNER, LIP, LIVP, TEGCR ####[address] [address] PH,Ur5.4Pmyliz7.0-8.0 [facility] CenterComment on above:Performed By: #### ERTPF, CONNER, LIP, LIVP, TEGCR ####[address] [address] Protein, Semi-qnt,UrNegativeNormalNEGUniversity Hospitals Tripoint Medical CenterComment on above:Performed By: #### ERTPF, CONNER, LIP, LIVP, TEGCR ####[address], [place] [phone]. [place],Ur1.027 Normal1.005-1.030[facility] Medical CenterComment on above:Performed By: #### ERTPF, CONNER, LIP, LIVP, TEGCR ####[address] [address] TurbidityCLEARNormalCLEARUniversity Hospitals Tripoint Medical Center Comment on above:Performed By: #### ERTPF, CONNER, LIP, LIVP, TEGCR ####[address] [address] Urobilinogen,UrNormal NormalSalem City HospitalComment on above:Performed By: #### ERTPF, CONNER, LIP, LIVP, TEGCR ####[address] [phone] REPORTEDNormalUniversity Hospitals Tripoint Medical Center Comment on above:Performed By: #### ERTPF, CONNER, LIP, LIVP, TEGCR ####[address] [phone],Microon 01-20-2018-----NormalUniversity Hospitals Tripoint Medical CenterComment on above:Performed By: #### ERTPF, CONNER, LIP, LIVP, TEGCR ####[address] [phone] TO 5 HYALINENormal0-8[facility] Tripoint Medical CenterComment on above:Result Comment: Reference range defined for non- centrifuged specimen.Performed By: #### ERTPF, CONNER, LIP, LIVP, TEGCR ####Sarithay [address] [address] Epithelial cells0 TO 2 Normal0-5[facility] Medical CenterComment on above:Performed By: #### ERTPF, CONNER, LIP, LIVP, TEGCR ####[facility] [address] [place] [address] RBC Test strip #/vol (U)NoneNormal0-4[facility] CenterComment on above:Result Comment: Reference range defined for non- centrifuged specimen.Performed By: #### ERTPF, CONNER, LIP, LIVP, TEGCR ####[address] [phone] WBC'sNoneNormal0-5 [facility] CenterComment on above:Performed By: #### ERTPF, CONNER, LIP, LIVP, TEGCR ####[address] [address] Amorphous SedimentNOT REPORTEDNormalNONEMeCommunity Hospital of San BernardinoComment on above:Performed By: #### ERTPF, CONNER, LIP, LIVP, TEGCR ####[address] [address] BacteriaNOT REPORTED NormalWyandot Memorial HospitalComment on above:Performed By: #### ERTPF, CONNER, LIP, LIVP, TEGCR ####[address] [address] CrystalsNOT REPORTEDNormalNONMercy Health Allen Hospitaly [facility] Comment on above:Performed By: #### ERTPF, CONNER, LIP, LIVP, TEGCR ####[address] [phone], RenalNOT CAXVTPDCSrkgra4BfpnbUniversity Hospitals Tripoint Medical CenterComment on above:Performed By: #### ERTPF, CONNER, LIP, LIVP, TEGCR ####[address] [address] Mucus StrandsNOT REPORTEDNormalNONEMeCommunity Hospital of San BernardinoComment on above:Performed By: #### ERTPF, CONNER, LIP, LIVP, TEGCR ####[facility] [address] [place] [address] Other ObservationsNOT REPORTEDNormalNREQMercy Community Regional Medical CenterComment on above:Performed By: #### ERTPF, CONNER, LIP, LIVP, TEGCR ####[facility] Epsyngsaislp49[address] [place] [address] TrichomonasNOT REPORTEDNormalNONEMeCommunity Hospital of San BernardinoComment on above:Performed By: #### ERTPF, CONNER, LIP, LIVP, TEGCR ####[facility] Ljjxwvlwbrox9376 [place] [address] YeastNOT REPORTEDNormalNONOhio Valley Surgical HospitalComment on above: Performed By: #### ERTPF, CONNER, LIP, LIVP, TEGCR ####E[address]ibnfq[address] [place] [address] XR CHEST PORTABLEon [id number] CHEST PORTABLEEXAMINATION:SINGLE XRAY VIEW OF THE CHEST01/20/2018 [...] is recommended.Interpreted by:NADEGE Wrightigned by:Cassie Guzmán MD01/20/18Final [facility] HospitalXR CHEST PORTABLE EXAMINATION:SINGLE XRAY VIEW OF [...] licensed caregiver.Interpreted by:NADEGE Gonzalezigned by:Jonathan Rodríguez MD01/19/18Final [facility] Warren HospitalAmylaseon 01-19-2018 Amylase enzyme act/oxl557 U/MXcfs62-829NssnoUniversity Hospitals Tripoint Medical CenterComment on above:Performed By: #### ERTPF, CONNER, LIP, LIVP, TEGCR ####[address] [place] [address] CTA ABDOMEN PELVIS W CONTRASTon [id number] ABDOMEN PELVIS W CONTRASTEXAMINATION:CTA OF THE ABDOMEN [...] at 19:43.Interpreted by:NADEGE Velazquezigned by:Chandan Quintanilla MD01/19/18Final resultNormalMerScripps Mercy HospitalCalcium, Ionicon 54-23-7207Yoxwdwf mass conc1.13 mmol/LNormal1.13-1.33 [facility] CenterComment on above:Performed By: #### CALLY IOCAL ####[employer] [place] [address] Calcium mass conc1.01 mmol/LLow1.13-1.33[facility] CenterComment on above: Performed By: #### CALLY IOCAL ####[address] [address] FFP, Transfuseon 34-78-2307XUU, TransfuseUnit Number [id number] Blood Component Type Fresh Plasma Unit Division 00 Status of Unit TRANSFUSED Transfusion Status OK TO TRANSFUSE Unit Number [id number] Blood Component Type Fresh Plasma Unit Division 00 Status of Unit TRANSFUSED Transfusion Status OK TO TRANSFUSENormalUniversity Hospitals Tripoint Medical CenterComment on above:Performed By: #### ERTPF, CONNER, LIP, LIVP, TEGCR ####[address] [phone] 01-19-2018 Lipase enzyme act/vol98 U/ZDpll78-04EhnooUniversity Hospitals Tripoint Medical CenterComment on above:Performed By: #### ERTPF, CONNER, LIP, LIVP, TEGCR ####[address] [phone] Profileon 96-11-7394Znybaos mass conc2.6 g/dLLow3.5-5.2MLos Alamitos Medical CenterComment on above:Performed By: #### ERTPF, CONNER, LIP, LIVP, TEGCR ####[address] [phone]/Globulin mass ratio1.3 {ratio}Normal 1.0-2.5[facility] CenterComment on above:Performed By: #### ERTPF, CONNER, LIP, LIVP, TEGCR ####[address] [phone] Phos77 U/BMsufya95-202OuovaUniversity Hospitals Tripoint Medical CenterComment on above:Performed By: #### ERTPF, CONNER, LIP, LIVP, TEGCR ####[address] [phone] enzyme act/vol18 U/LNormal5-41[facility] CenterComment on above:Performed By: #### ERTPF, CONNER, LIP, LIVP, TEGCR ####[address] [address] AST enzyme act/vol38 U/LNormal<40[facility] CenterComment on above:Performed By: #### ERTPF, CONNER, LIP, LIVP, TEGCR ####[address] [address] Bilirubin Ql (U)0.53 mg/dLNormal0.3-1.2MLos Alamitos Medical CenterComment on above:Performed By: #### ERTPF, CONNER, LIP, LIVP, TEGCR ####[address] [address] Bilirubin, Indirect0.38 mg/dLNormal0.00-1.00[facility] CenterComment on above:Performed By: #### ERTPF, CONNER, LIP, LIVP, TEGCR ####[address] [address] Bilirubin.direct mass conc0.15 mg/dLNormal<0.31[facility] Comment on above:Performed By: #### ERTPF, CONNER, LIP, LIVP, TEGCR ####[address] [address] Protein mass conc4.6 g/dLLow6.4-8.3MLos Alamitos Medical CenterComment on above:Performed By: #### ERTPF, CONNER, LIP, LIVP, TEGCR ####[address] [address] Globulin Calculated mass conc (S)NOT REPORTEDNormal1.5-3.8 [facility] CenterComment on above:Performed By: #### ERTPF, CONNER, LIP, LIVP, TEGCR ####[address] [address] Open Heart Panelon 80-98-5176ScdqsxphturavQGS REPORTEDNormal 0.0-1.5[facility] CenterComment on above:Performed By: #### ERTPF, CONNER, LIP, LIVP, TEGCR ####[facility] [address] [place] [address] ModeNOT REPORTEDNormalUniversity Hospitals Tripoint Medical CenterComment on above:Performed By: #### ERTPF, CONNER, LIP, LIVP, TEGCR ####[facility] [address] [place] [address] Notification TimeNOT REPORTEDNormalUniversity Hospitals Tripoint Medical CenterComment on above:Performed By: #### ERTPF, CONNER, LIP, LIVP, TEGCR ####[address] [address] Notification:NOT REPORTEDNormalUniversity Hospitals Tripoint Medical CenterComment on above:Performed By: #### ERTPF, CONNER, LIP, LIVP, TEGCR ####[address] [address] O2 Device/Flow/%NOT REPORTEDNormalUniversity Hospitals Tripoint Medical CenterComment on above:Performed By: #### ERTPF, CONNER, LIP, LIVP, TEGCR ####[facility] [address] [place] [address] OxyhemoglobinNOT QNOZWWVMIgkayw99.0-98.0MerScripps Mercy HospitalComment on above:Performed By: #### ERTPF, CONNER, LIP, LIVP, TEGCR ####[address] [address] oXD3 Adj'd for TempNOT GAMSCDXHQwkypv75-90GpalgScripps Mercy HospitalComment on above: Performed By: #### ERTPF, CONNER, LIP, LIVP, TEGCR ####[address] [address] PEEP/CPAPNOT REPORTEDNormalUniversity Hospitals Tripoint Medical CenterComment on above:Performed By: #### ERTPF, CONNER, LIP, LIVP, TEGCR ####[address] [address] pH Adjst'd for Temp.NOT REPORTEDNormal7.350-7.450[facility] Comment on above:Performed By: #### ERTPF, CONNER, LIP, LIVP, TEGCR ####[address] [address] tR3 Adjst'd for TempNOT IEMOFTVWExvxet34-23NuhhnUniversity Hospitals Tripoint Medical CenterComment on above:Performed By: #### ERTPF, CONNER, LIP, LIVP, TEGCR ####[address] [address] Positive Base ExcessNOT REPORTEDNormal0.0-2.0 [facility] CenterComment on above:Performed By: #### ERTPF, CONNER, LIP, LIVP, TEGCR ####[address] [address] PSVNOT REPORTEDNormalUniversity Hospitals Tripoint Medical CenterComment on above:Performed By: #### ERTPF, CONNER, LIP, LIVP, TEGCR ####[address] [address] Pt. PositionNOT REPORTEDNormalUniversity Hospitals Tripoint Medical CenterComment on above:Performed By: #### ERTPF, CONNER, LIP, LIVP, TEGCR ####[address] [address] Set RateNOT REPORTEDNormalUniversity Hospitals Tripoint Medical CenterComment on above:Performed By: #### ERTPF, CONNER, LIP, LIVP, TEGCR ####[address] [place] [address] Site DrawnNOT REPORTEDSullivan County Memorial HospitalalUniversity Hospitals Tripoint Medical CenterComment on above:Performed By: #### ERTPF, CONNER, LIP, LIVP, TEGCR ####[place]ith[address] [place] [address] Text for RespiratoryNOT REPORTEDSullivan County Memorial HospitalalUniversity Hospitals Tripoint Medical CenterComment on above: Performed By: #### ERTPF, CONNER, LIP, LIVP, TEGCR ####Sarithay [address] [place] [address] Total HbNOT BPLXKEMEZruqku32.0-16.0[facility] CenterComment on above:Performed By: #### ERTPF, CONNER, LIP, LIVP, TEGCR ####[facility] [address] [address] Total RateNOT REPORTEDNormalUniversity Hospitals Tripoint Medical CenterComment on above: Performed By: #### ERTPF, CONNER, LIP, LIVP, TEGCR ####[facility] Mdztmusjqiqr[address] [place] [address] VTNOT REPORTEDFairfield Medical CenterComment on above:Performed By: #### ERTPF, CONNER, LIP, LIVP, TEGCR ####Fil[address]a [address] [place] [address] Allen Test INFORMATION NOT PROVIDEDNormSouthwest General Health CenterComment on above: Performed By: #### OHP, IOCAL ####[place] [address] [place] [address] Body Temp.37.0NoThe MetroHealth SystemComment on above:Performed By: #### OHP, IOCAL ####[place] [address] [place] [address] Carboxy Hgb4.3 %Normal0-5[facility] Medical CenterComment on above:Result Comment: Reference Range:Non-Smokers 0- 2%Average Smoker 2-4%Heavy Smoker <10%Performed By: #### CALLY, IOCAL ####[place] [address]og[address] [place] [address] Chloride molar twxk638 mmol/PLozc67-743PhiovUniversity Hospitals Tripoint Medical CenterComment on above:Performed By: #### CALLY, IOCAL ####[facility] [address] [place] [address] AFI8SNQMZEPPGFP NOT PROVIDEDNormalUniversity Hospitals Tripoint Medical CenterComment on above:Performed By: #### CALLY, IOCAL ####[facility] Qzmeyibwzbaq[address] [place] [address] Glucose mass conc71 mg/lKDtn95-225HozvaUniversity Hospitals Tripoint Medical CenterComment on above:Performed By: #### CALLY, IOCAL ####[facility] T[address]chlatacm[address] [place] [address] SFI7 molar conc (Bld)11.7 mmol/BZht81-70DpgkzUniversity Hospitals Tripoint Medical CenterComment on above: Performed By: #### CALLY, IOCAL ####[facility] Zgvabctvinge[address]4 [place] [address] Hematocrit Auto Volume Fraction (Bld)36.1 %NormalUniversity Hospitals Tripoint Medical CenterComment on above:Performed By: #### OHAmrik, IOCAL ####[facility] K[address]jdqc[address]wvk[address] [place] [address] Hemoglobin mass conc (Bld)11.7 g/dLNoThe MetroHealth SystemComment on above:Performed By: #### OHAmrik, IOCAL ####[facility] Dyzgzhiwlwjj[address] [place] [address] Negative Base Seckgq98.8 mmol/LHigh0.0-2.0[facility] CenterComment on above:Performed By: #### OHP, IOCAL ####[facility] Qln[address]oglmrqff6838 [place] [address] Oxygen ppres (BldA)214.0 mm[Hg]Jzjf29-22TcmxwUniversity Hospitals Tripoint Medical CenterComment on above:Performed By: #### OHP, IOCAL ####[place] [address]blqkn[address]146 [place] [address] Oxygen saturation in Blood98.7 %Lozeoz38-171HgiycUniversity Hospitals Tripoint Medical CenterComment on above:Performed By: #### OHP, IOCAL ####Sar[place] [address]umkabc[address]25 [place] [address] mMO317.6 ngOhVlthdd75-32 [facility] CenterComment on above:Performed By: #### OHP, IOCAL ####[address] [place] [address] pH (Bld)7.069 [pH]Critically low7.350-7.450[facility] Medical CenterComment on above: Performed By: #### OHP, IOCAL ####Sar[place] Jmnobsxdocpt7490 [place] [address] Potassium molar conc4.0 mmol/LNormal3.6-5.0[facility] CenterComment on above:Performed By: #### OHP, IOCAL ####[facility] Qupmayewwmiv[address]36 [place] [address] Sodium molar rsrx154 mmol/CHyw244-159VidsqUniversity Hospitals Tripoint Medical CenterComment on above:Performed By: #### OHP, IOCAL ####[facility] Cwkqalhrsfwa[address]06 [place] [address] MethemoglobinNOT REPORTEDNormal0.0-1.5[facility] CenterComment on above:Performed By: #### OHP, IOCAL ####[facility] [address]svprt[address] [place] [address] ModeNOT REPORTEDNormal [facility] CenterComment on above:Performed By: #### OHP, IOCAL ####Sar[place] [address]karweb[address]30 [place] [address] Notification TimeNOT REPORTEDNormalUniversity Hospitals Tripoint Medical CenterComment on above:Performed By: #### OHP, IOCAL ####[facility] [address] [place] [phone]:NOT REPORTEDNormalUniversity Hospitals Tripoint Medical CenterComment on above:Performed By: #### OHP, IOCAL ####[facility] [address] [place] [address] O2 Device/Flow/%NOT REPORTEDNormalUniversity Hospitals Tripoint Medical CenterComment on above:Performed By: #### OHP, IOCAL ####[facility] [place] [address] Oxyhemoglobin NOT OHQSPPMJHjxmqc23.0-98.0[facility] CenterComment on above: Performed By: #### OHP, IOCAL ####[address] [place] [address] iTM7 Adj'd for TempNOT ANPCWYZAKwlujx21-29AflpsUniversity Hospitals Tripoint Medical CenterComment on above:Performed By: #### OHP, IOCAL ####[facility] [address]myxkewhphtb[address] [place] [address] PEEP/CPAPNOT REPORTED NormalUniversity Hospitals Tripoint Medical CenterComment on above:Performed By: #### OHP, IOCAL ####[facility] Pxwyikjequja3990 [place] [address] pH Adjst'd for Temp.NOT REPORTEDNormal7.350-7.450[facility] Comment on above:Performed By: #### OHP, IOCAL ####[facility] Cjwtrstklypy3096 [place] [phone] Adjst'd for TempNOT CHBXKADRDudrzh25-44 [facility] CenterComment on above:Performed By: #### OHP, IOCAL ####[facility] Dpenllojesxi2179 [place] [phone] Base ExcessNOT REPORTEDNormal0.0-2.0[facility] CenterComment on above: Performed By: #### OHP, IOCAL ####[facility] Koqfresstvam7254 [place] [phone] REPORTEDNormalUniversity Hospitals Tripoint Medical CenterComment on above:Performed By: #### OHP, IOCAL ####[facility] Xqcbjwtoxtuu3824 [place] [phone]. PositionNOT REPORTEDNormalUniversity Hospitals Tripoint Medical CenterComment on above:Performed By: #### OHP, IOCAL ####[facility] [address]ynvmqgcak[address] [place] [phone] RateNOT REPORTED NormalUniversity Hospitals Tripoint Medical CenterComment on above:Performed By: #### OHP, IOCAL ####[facility] Xhmkzvcwwsjp[address]46 [place] [address] Site DrawnNOT REPORTEDNormalUniversity Hospitals Tripoint Medical CenterComment on above: Performed By: #### OHP, IOCAL ####[address] Asuuljokgkrw2677 [place] [address] Text for RespiratoryNOT REPORTEDNormalUniversity Hospitals Tripoint Medical CenterComment on above:Performed By: #### OHP, IOCAL ####[facility] Liwsiatvdiqr2024 [place] [phone] HbNOT REPORTED Jgvuhh37.0-16.0[facility] CenterComment on above:Performed By: #### OHP, IOCAL ####[facility] Hhfkmrwwqphn8757 [place] [address] Total RateNOT REPORTEDNormalUniversity Hospitals [facility] Center Comment on above:Performed By: #### CALLY, IOCAL ####Sar[place] Xctupbwwpqon8746 [place] [address] VTNOT REPORTEDNormalUniversity Hospitals Tripoint Medical CenterComment on above:Performed By: #### CALLY, IOCAL ####[place]aukmmovg6331 [place] [address] Allen TestINFORMATION NOT PROVIDEDNormal [facility] CenterComment on above:Performed By: #### CALLY, IOCAL ####[place] Geqshneulyni9173 [place] [address] Body Temp.37.0 NormalUniversity Hospitals Tripoint Medical CenterComment on above:Performed By: #### CALLY, IOCAL ####[facility] Jhjwsblohuic6380 [place] [address] Carboxy Hgb4.8 %Normal0-5[facility] CenterComment on above:Result Comment: Reference Range:Non-Smokers 0-2%Average Smoker 2-4%Heavy Smoker <10% Performed By: #### CALLY, IOCAL ####[facility] Jwtlpaigywey2824 [place] [address] Chloride molar asjs899 mmol/AAkwuda54-351ZilagUniversity Hospitals Tripoint Medical CenterComment on above:Performed By: #### CALLY, IOCAL ####[facility] Ykliqvyfcavb[address]71 [place] [address] TDA5942ZevqnhQqusjUniversity Hospitals Tripoint Medical CenterComment on above:Performed By: #### OHAmrik, IOCAL ####[facility] Xhyvcdyqfqhc8602 [place] [address] Glucose mass conc90 mg/xRBayici12-870CmeibUniversity Hospitals Tripoint Medical CenterComment on above:Performed By: #### OHP, IOCAL ####[facility] Nffdenfmezvr5279 [place] [address] PCR9 molar conc (Bld)15.6 mmol/ZEtj00-70ZvjcnUniversity Hospitals Tripoint Medical CenterComment on above:Performed By: #### OHP, IOCAL ####[facility] Vxzdmqvqtpre9211 [place] [address] Hematocrit Auto Volume Fraction (Bld)42.6 %NormalUniversity Hospitals Tripoint Medical CenterComment on above: Performed By: #### OHP, IOCAL ####[facility] Cltkdeywxzgz7644 [place] [address] Hemoglobin mass conc (Bld)13.9 g/dLNormalUniversity Hospitals Tripoint Medical CenterComment on above:Performed By: #### OHP, IOCAL ####[facility] Egduueqjxdeh3751 [place] [address] Negative Base Jxargl75.1 mmol/LHigh0.0-2.0[facility] CenterComment on above:Performed By: #### OHP, IOCAL ####[facility] Bvxazmfyixfc5826 [place] [address] Oxygen ppres (BldA)406.0 mm[Hg]Rsei53-34SzzjpUniversity Hospitals Tripoint Medical CenterComment on above:Performed By: #### OHP, IOCAL ####[facility] Oovijotsvjff1594 [place] [address] Oxygen saturation in Blood99.5 %Tdqyez71-808MssitUniversity Hospitals Tripoint Medical CenterComment on above: Performed By: #### OHP, IOCAL ####[facility] Ipdigdmwkvrx5147 [place] [phone] hwVyTnhw42-36XiyzlUniversity Hospitals Tripoint Medical CenterComment on above:Performed By: #### OHP, IOCAL ####[facility] Ckmfduvzxpnu2261 [place] [address] pH (Bld)7.109 [pH]Critically low7.350-7.450[facility] CenterComment on above:Performed By: #### OHAmrik, IOCAL ####[place] Yongwepedqkt8158 [place] [address] Potassium molar conc4.2 mmol/LNormal3.6-5.0[facility] CenterComment on above:Performed By: #### OHAmrik, IOCAL ####[place] Upkjcyydmuga2469 [place] [address] Sodium molar zgxz267 mmol/OPke335-690SmccrScripps Mercy HospitalComment on above:Performed By: #### OHAmrik, IOCAL ####[facility] Twtsclwxdvkn3289 [place] [address] MethemoglobinNOT REPORTEDNormal0.0-1.5MerScripps Mercy HospitalComment on above:Performed By: #### OHAmrik, IOCAL ####[facility] Hmsnmgnqcsop1158 [place] [address] ModeNOT REPORTEDNormalUniversity Hospitals Tripoint Medical CenterComment on above:Performed By: #### OHAmrik, IOCAL ####[facility] Hiepunhhbata7434 [place] [address] Notification TimeNOT REPORTEDNormalUniversity Hospitals Tripoint Medical CenterComment on above:Performed By: #### OHP, IOCAL ####[facility] Dqiaijekatto[address]803 [place] [phone]:NOT REPORTEDNormalUniversity Hospitals Tripoint Medical CenterComment on above:Performed By: #### OHP, IOCAL ####[facility] Seftckaeevtm7586 [place] [address] O2 Device/Flow/%NOT REPORTEDNormalUniversity Hospitals Tripoint Medical CenterComment on above:Performed By: #### OHP, IOCAL ####[facility] Viuwntwrfnrs4333 [place] [address] OxyhemoglobinNOT VWZYAMCOVqapck91.0-98.0 [facility] CenterComment on above:Performed By: #### OHP, IOCAL ####[facility] [address]jucocjdjfjt1705 [place] [address] zKW0 Adj'd for TempNOT CUVJSBACRpnwpp00-43KzlbvUniversity Hospitals Tripoint Medical CenterComment on above: Performed By: #### OHP, IOCAL ####[facility] Kezluunwftwb0829 [place] [address] PEEP/CPAPNOT REPORTEDSullivan County Memorial HospitalalUniversity Hospitals [facility] Comment on above:Performed By: #### OHP, IOCAL ####[facility] Mkjmviskvulz1196 [place] [address] pH Adjst'd for Temp.NOT REPORTEDNormal 7.350-7.450[facility] CenterComment on above:Performed By: #### OHP, IOCAL ####[facility] Neismjhbkfaq5598 [place] [address] vR1 Adjst'd for TempNOT GKKWMECBShjjqo54-80WilntUniversity Hospitals Tripoint Medical CenterComment on above:Performed By: #### OHP, IOCAL ####[facility] Gcaxxbuexstn9991 [place] [address] Positive Base ExcessNOT REPORTEDNormal0.0-2.0 [facility] CenterComment on above:Performed By: #### OHP, IOCAL ####[facility] Urrzazxqhzmj5248 [place] [address] PSVNOT REPORTEDNormalUniversity Hospitals Tripoint Medical CenterComment on above:Performed By: #### OHP, IOCAL ####[facility] Ilcyzsribzte2836 [place] [address] Pt. PositionNOT REPORTEDNormalUniversity Hospitals [facility] Center Comment on above:Performed By: #### OHP, IOCAL ####[facility] Bybdackurqrm3773 [place], [place] [phone] RateNOT REPORTEDNormalUniversity Hospitals Tripoint Medical CenterComment on above:Performed By: #### OHP, IOCAL ####[facility] Fbpzhdfkpfsu3782 [place], [place] [phone] DrawnNOT REPORTED NormalUniversity Hospitals Tripoint Medical CenterComment on above:Performed By: #### OHP, IOCAL ####[facility] Zdqxarlawfsi9309 [place], [place] [phone] for RespiratoryNOT REPORTEDNormalUniversity Hospitals Tripoint Medical CenterComment on above: Performed By: #### OHP, IOCAL ####[facility] Uopxlsqzehpe3622 [place], [place] [phone] HbNOT OQKVOYQBCrundy49.0-16.0MerScripps Mercy HospitalComment on above:Performed By: #### OHP, IOCAL ####[facility] Bhhqvoohexct3428 [place], [place] [phone] RateNOT REPORTEDNormalUniversity Hospitals Tripoint Medical CenterComment on above:Performed By: #### OHP, IOCAL ####[facility] Buwbxtoiujvw9912 [place], [place] [phone] REPORTEDNormal [facility] CenterComment on above:Performed By: #### OHP, IOCAL ####[facility] Xvduzlxorqzn7668 [place], [place] [phone] Pathologyon 74-65-5213Dqtppuls Pathology(NOTE)[id number] LABORATORIESCONSULTING PATHOLOGISTS CORPORATIONANATOMIC AAYVHUSYR[address]90 [place], [place] [address] Fax: SURGICAL PATHOLOGY CONSULTATIONPatient Name: A[facility]LOYDUniversity [facility] Rec: [id number] Number: [id number]: 01/19/2018Received: 01/20/2018Reported: 01/21/2018 13:48-- Diagnosis --1. TERMINAL [...] or lesions or perforations are grossly identified. Talent Sourcer sections from the larger segment submitted as follows: A terminal ileum resection margin between (proximal), B distalresection margin, C-D call center support representative sections from area of theopening, E call center support representative section from submucosal hematoma, F ileocecal valve, G tip of appendix bisected, H representativesection from the appendix, I call center support representative section from superficialulcerated mucosa, J call center support representative section from hyperemic colonmucosa, K one resection margin of smaller fragment, L the othermargin of smaller fragment and call center support representative section from the smallerfragment.2. ALEJO MARIEL, [...] and no masses orlesions are grossly identified. Talent Sourcer sections submitted asfollows: A area of laceration, [...] 7 x 4 x 1.5cm maximum thickness. Talent Sourcer section from the fibrofattytissue surrounding the larger fragment is submitted in cassette A. Remainder of specimen is returned to original container. Microscopic DescriptionMicroscopic examination performed.NormalUniversity Hospitals Tripoint Medical CenterComment on above:Performed By: #### PPPVS ####[facility]aCo[facility] Medical CenterRwmjgxfytkfq6387 [place] [address] TEG, Rapid Citratedon 11-09-5521VFK TEG 113.0 cnaMtjlbc89-525BkppmUniversity Hospitals Tripoint Medical CenterComment on above:Performed By: #### ERTPF, CONNER, LIP, LIVP, TEGCR ####[facility] Ikflqgsmveeu5052 [place] [address] Angle, Rapid TEG52.6 nerGkg38-73QauctScripps Mercy HospitalComment on above:Performed By: #### ERTPF, CONNER, LIP, LIVP, TEGCR ####[facility] Bl[address] [place] [address] EPL TEG 1.0 %Normal0.0-15.0MerScripps Mercy HospitalComment on above:Performed By: #### ERTPF, CONNER, LIP, LIVP, TEGCR ####[address] [address] Heparin Therapy:UNKNOWNNormalUniversity Hospitals Tripoint Medical CenterComment on above:Performed By: #### ERTPF, CONNER, LIP, LIVP, TEGCR ####[address] [address] K (Kinetics) rTEG3.6 minHigh1.0-2.0University Hospitals Tripoint Medical CenterComment on above:Performed By: #### ERTPF, CONNER, LIP, LIVP, TEGCR ####[address] [address] LD38 (Lysis) TEG1.0 %Normal0-8MerScripps Mercy HospitalComment on above:Performed By: #### ERTPF, CONNER, LIP, LIVP, TEGCR ####[facility] M[address] [place] [address] MA Rapid TEG 51.4 evXqq39-04UqphgUniversity Hospitals Tripoint Medical CenterComment on above:Performed By: #### ERTPF, CONNER, LIP, LIVP, TEGCR ####[address] [address] R(Reaction Time)rTEG0.7 minNormal0.0-1.0MerWashington University Medical CenterTaylortown Medical CenterComment on above:Performed By: #### ERTPF, CONNER, LIP, LIVP, TEGCR ####Filomena Rojas[address] [place] [address] TEG CommentACT is the only FDA approved component of the Rapid TEG.NormalUniversity Hospitals Tripoint Medical CenterComment on above:Performed By: #### ERTPF, CONNER, LIP, LIVP, TEGCR ####Filomena [address] [place] [address] Trauma Profile on 02-94-5638Nuvp nitrogen mass conc6 mg/dLNormal6-20University Hospitals Tripoint Medical CenterComment on above:Result Comment: QA FLAGS AND/OR RANGES MODIFIED BY DEMOGRAPHIC UPDATE ON 01/19 AT 1953Performed By: #### ERTPF, CONNER, LIP, LIVP, TEGCR ####[address] [address] Anion gap 3 molar conc13 mmol/LNormal9-17University Hospitals Tripoint Medical CenterComment on above:Performed By: #### ERTPF, CONNER, LIP, LIVP, TEGCR ####Filomena [address] [address] Chloride molar aquf823 mmol/LNormal 98-107University Hospitals Tripoint Medical CenterComment on above:Performed By: #### ERTPF, CONNER, LIP, LIVP, TEGCR ####Sarithaernie [address] 43[address] SW9 molar conc17 mmol/BTob11-45ZprskUniversity Hospitals Tripoint Medical Center Comment on above:Performed By: #### ERTPF, CONNER, LIP, LIVP, TEGCR ####Filomena [address]rjcs[address] [place] [address] Creatinine mass conc0.55 mg/dLLow0.70-1.20[facility]als Tripoint Medical CenterComment on above:Performed By: #### ERTPF, CONNER, LIP, LIVP, TEGCR ####[place] [address] [place] [address] Ethanol mass ztvq740 mg/dLHigh<10[facility] Hospitals Tripoint Medical CenterComment on above:Performed By: #### ERTPF, CONNER, LIP, LIVP, TEGCR ####[address] [address] Ethanol percent0.277 % NormalUniversity Hospitals Tripoint Medical CenterComment on above:Performed By: #### ERTPF, CONNER, LIP, LIVP, TEGCR ####[address] [address] Glucose mass conc95 mg/lZWrnrvf39-12AtdomLos Alamitos Medical CenterComment on above:Performed By: #### ERTPF, CONNER, LIP, LIVP, TEGCR ####[address] [address] Potassium molar conc4.7 mmol/LNormal3.7-5.3[facility]y [facility] CenterComment on above:Performed By: #### ERTPF, CONNER, LIP, LIVP, TEGCR ####[address] [address] Sodium molar dhyo324 mmol/IFsd382-260GjpmuUniversity Hospitals Tripoint Medical CenterComment on above:Performed By: #### ERTPF, CONNER, LIP, LIVP, TEGCR ####[address] [place] [address] aPTT Coag time (Bld)26.2 xLopniu44.5-30.5University Hospitals Tripoint Medical CenterComment on above:Performed By: #### ERTPF, CONNER, LIP, LIVP, TEGCR ####[address] [address] INR Coag RelTime (PPP)1.1 {INR}Normal University Hospitals Tripoint Medical CenterComment on above:Result Comment: Therapeutic Range: Moderate Anticoagulant Intensity: INR = 2.0-3.0 High Anticoagulant Intensity: INR = 2.5-3.5Performed By: #### ERTPF, CONNER, LIP, LIVP, TEGCR ####[address] [address] Prothrombin time (PT) Coag time (PPP)11.9 sNormal9.0-12.0[facility] Comment on above:Performed By: #### ERTPF, CONNER, LIP, LIVP, TEGCR ####[address] [address] Erythrocyte distribution width Auto Ratio (RBC)14.3 %Tkgywb93.8-14.4[facility] Comment on above:Performed By: #### ERTPF, CONNER, LIP, LIVP, TEGCR ####[address] [address] Hematocrit Auto Volume Fraction (Bld)42.9 %Dkesbk91.7-50.3MLos Alamitos Medical CenterComment on above:Performed By: #### ERTPF, CONNER, LIP, LIVP, TEGCR ####[address] [address] Hemoglobin mass conc (Bld)14.0 g/dL Iqjzex85.0-17.0[facility] Hospitals Tripoint Medical CenterComment on above:Performed By: #### ERTPF, CONNER, LIP, LIVP, TEGCR ####[address] [address] MCH Auto Entitic mass (RBC)32.0 ubTzfdgv92.2-33.5University Hospitals Tripoint Medical CenterComment on above:Performed By: #### ERTPF, CONNER, LIP, LIVP, TEGCR ####[address] [address] MCHC Auto mass conc (RBC)32.6 g/vPWnxoyf28.4-34.8[facility] Comment on above:Performed By: #### ERTPF, CONNER, LIP, LIVP, TEGCR ####[address] [address] MCV Auto Entitic volume (RBC)97.9 eFQbilok66.6-102.9University Hospitals Tripoint Medical CenterComment on above: Performed By: #### ERTPF, CONNER, LIP, LIVP, TEGCR ####[address] [phone] Automated0.0 per 100 WBCNormal0.0 [facility] Tripoint Medical CenterComment on above:Performed By: #### ERTPF, CONNER, LIP, LIVP, TEGCR ####[address] [address] Platelet mean volume Auto Entitic volume (Bld)9.4 fLNormal8.1-13.5 [facility] Tri[facility] Medical CenterComment on above:Performed By: #### ERTPF, CONNER, LIP, LIVP, TEGCR ####[address] 4360 Platelets Auto #/vol (Bld)193 10*3/sFGqxcjf848-033KhkbkUniversity Hospitals Tripoint Medical CenterComment on above:Performed By: #### ERTPF, CONNER, LIP, LIVP, TEGCR ####[address] [address] RBC Auto #/vol (Bld)4.38 10*6/uLNormal4.21-5.77[facility] Comment on above:Performed By: #### ERTPF, CONNER, LIP, LIVP, TEGCR ####[address] [address] WBC Auto #/vol (Bld)3.6 10*3/uLNormal3.5-11.3[facility] Medical CenterComment on above:Performed By: #### ERTPF, CONNER, LIP, LIVP, TEGCR ####[address] [address] Body Temp.37.0NormSouthwest General Health CenterComment on above:Performed By: #### ERTPF, CONNER, LIP, LIVP, TEGCR ####[address] [address] Carboxy Hgb5.7 %High0-5 [facility] Tri[facility] Medical CenterComment on above:Result Comment: Reference Range:Non-Smokers 0-2%Average Smoker 2-4%Heavy Smoker <10%Performed By: #### ERTPF, CONNER, LIP, LIVP, TEGCR ####[address] [phone] NOT PROVIDEDNormSouthwest General Health CenterComment on above:Performed By: #### ERTPF, CONNER, LIP, LIVP, TEGCR ####[address] [address] HCO3 molar conc (Bld) 18.9 mmol/JGgw74-12BkrkbUniversity Hospitals Tripoint Medical CenterComment on above:Performed By: #### ERTPF, CONNER, LIP, LIVP, TEGCR ####[address] [address] Negative Base Iokbaw90.2 mmol/LHigh0.0-2.0[facility] Tri[facility] Medical CenterComment on above:Performed By: #### ERTPF, CONNER, LIP, LIVP, TEGCR ####[address] [address] Oxygen ppres (BldA)40.2 mm[Hg]Swfkag70-73BktlaUniversity Hospitals Tripoint Medical CenterComment on above:Performed By: #### ERTPF, CONNER, LIP, LIVP, TEGCR ####Sarithay [address] [place] [address] Oxygen saturation in Blood58.1 %Low60.0-85.0[facility] Tri[facility] Medical CenterComment on above: Performed By: #### ERTPF, CONNER, LIP, LIVP, TEGCR ####Sarithay [address] [place] [phone]University Hospitals Tripoint Medical CenterComment on above:Performed By: #### ERTPF, CONNER, LIP, LIVP, TEGCR ####Filomena [address]qy[address] [place] [address] pH (Bld)7.157 [pH]Critically low7.320-7.420[facility] Tripoint Medical CenterComment on above: Performed By: #### ERTPF, CONNER, LIP, LIVP, TEGCR ####[facility] Sxtasxdpcvrq[address] [place] [address] [phone] BankBIL FOR SERVICES PERFORMED NormalUniversity Hospitals Tripoint Medical CenterComment on above:Performed By: #### ERTPF, CONNER, LIP, LIVP, TEGCR ####[address] [address] (cont.)NOT REPORTEDNormalMerScripps Mercy HospitalComment on above:Performed By: #### ERTPF, CONNER, LIP, LIVP, TEGCR ####[facility] Mtwetzbbraei[address] [place], [place] [phone] TestNOT REPORTED NormalUniversity Hospitals Tripoint Medical CenterComment on above:Performed By: #### ERTPF, CONNER, LIP, LIVP, TEGCR ####[facility] Wezjcydbaowa24[address] [place] [address] [phone], AmerNOT REPORTEDNormal>60[facility] CenterComment on above:Performed By: #### ERTPF, CONNER, LIP, LIVP, TEGCR ####[facility] [address]zxdn7[address] [place] [address] GFR,non AmerNOT REPORTEDNormal>60[facility] CenterComment on above:Performed By: #### ERTPF, CONNER, LIP, LIVP, TEGCR ####[facility] Djdyymugpaz[address] [place] [address] MethemoglobinNOT REPORTEDNormal0.0-1.5MerScripps Mercy HospitalComment on above:Performed By: #### ERTPF, CONNER, LIP, LIVP, TEGCR ####[facility] Pyqtogksvhfg[address] [place] [address] ModeNOT REPORTEDNormalMerScripps Mercy HospitalComment on above:Performed By: #### ERTPF, CONNER, LIP, LIVP, TEGCR ####[facility] B[address]ys[address] [place] [address] Notification TimeNOT REPORTEDNormalUniversity Hospitals Tripoint Medical CenterComment on above:Performed By: #### ERTPF, CONNER, LIP, LIVP, TEGCR ####[facility] [address] [place] [address] Notification: NOT REPORTEDNormalMercy Community Regional Medical CenterComment on above:Performed By: #### ERTPF, CONNER, LIP, LIVP, TEGCR ####[facility] Mmtuwozqvjhz1285 [place] [address] O2 Device/Flow/%NOT REPORTEDNormalUniversity Hospitals Tripoint Medical CenterComment on above:Performed By: #### ERTPF, CONNER, LIP, LIVP, TEGCR ####[facility] [address] [place] [address] Oxyhemoglobin NOT TOHTIIKXOobfut16.0-98.0[facility] Tri[facility] Medical CenterComment on above: Performed By: #### ERTPF, CONNER, LIP, LIVP, TEGCR ####[facility] Radgjpktbfed[address] [place] [address] Ysd6 Adj'd for Temp.NOT REPORTEDNormal 39-55[facility] Medical CenterComment on above:Performed By: #### ERTPF, CONNER, LIP, LIVP, TEGCR ####[facility] Ajsrkgeixfaw[address] [place] [address] PEEP/CPAPNOT REPORTEDNormalUniversity Hospitals Tripoint Medical CenterComment on above:Performed By: #### ERTPF, CONNER, LIP, LIVP, TEGCR ####[facility] Qngrztkpkuob54[address] [place] [address] pH Adjst'd for Temp.NOT REPORTEDNormal7.320-7.420[facility] Medical CenterComment on above: Performed By: #### ERTPF, CONNER, LIP, LIVP, TEGCR ####[address] [address] nJ7 Adj'd for Temp.NOT REPORTEDNormal 30-50[facility] Tri[facility] Medical CenterComment on above:Performed By: #### ERTPF, CONNER, LIP, LIVP, TEGCR ####[address] 43[address] Positive Base ExcessNOT REPORTEDNormal0.0-2.0[facility] Medical CenterComment on above:Performed By: #### ERTPF, CONNER, LIP, LIVP, TEGCR ####[address] [address] PSVNOT REPORTEDNormalUniversity Hospitals Tripoint Medical CenterComment on above:Performed By: #### ERTPF, CONNER, LIP, LIVP, TEGCR ####[facility] [address] [place] [address] Pt. PositionNOT REPORTEDNormalMerScripps Mercy HospitalComment on above:Performed By: #### ERTPF, CONNER, LIP, LIVP, TEGCR ####[facility] Aqwcflszuukw0069 [place] [address] Set RateNOT REPORTED NormalOhiohealth Southeastern Medical Centercy Community Regional Medical CenterComment on above:Performed By: #### ERTPF, CONNER, LIP, LIVP, TEGCR ####[facility] [address]ymddhlonho[address] [place] [address] [phone] DrawnNOT REPORTEDNormalMerScripps Mercy Hospital Comment on above:Performed By: #### ERTPF, CONNER, LIP, LIVP, TEGCR ####[facility] [address]lorzkjcqowp[address] [place] [address] Staging:NOT REPORTED NormalOhiohealth Southeastern Medical Centercy Community Regional Medical CenterComment on above:Performed By: #### ERTPF, CONNER, LIP, LIVP, TEGCR ####[facility] [address]xjxfutjfbxo94[address] [place] [address] [phone] for RespiratoryNOT REPORTEDNormalUniversity Hospitals Tripoint Medical CenterComment on above:Performed By: #### ERTPF, CONNER, LIP, LIVP, TEGCR ####[facility] Mg[address] [place] [address] Total HbNOT REPORTED Owromj31.0-16.0MerScripps Mercy HospitalComment on above:Performed By: #### ERTPF, CONNER, LIP, LIVP, TEGCR ####[facility] [address]xmftzgrw[address] [place] [address] Total RateNOT REPORTEDNormalUniversity Hospitals Tripoint Medical CenterComment on above:Performed By: #### ERTPF, CONNER, LIP, LIVP, TEGCR ####[facility] [address]cfmorxcp[address] [place] [address] VTNOT REPORTEDNormal [facility] Medical CenterComment on above:Performed By: #### ERTPF, CONNER, LIP, LIVP, TEGCR ####Filomena [address]qm[address] [place], [place] [address] Type + Screenon [id number] + ScreenSample Expiration 01/22/2018 Arm Band Number [id number] ABO/Rh(D) A POSITIVE Antibody Screen NEGATIVE Unit Number [id number] Blood Component Type Leukocyte Reduced Red Cell Unit Division 00 Status of Unit TRANSFUSED Transfusion Status OK TO TRANSFUSE Crossmatch Result COMPATIBLE Unit Number [id number] Blood Component Type Leukocyte Reduced Red Cell Unit Division 00 Status of Unit REL FROM ALLOC Transfusion Status OK TO TRANSFUSE Crossmatch Result COMPATIBLE Unit Number [id number] Blood Component Type Leukocyte Reduced Red Cell Unit Division 00 Status of Unit REL FROM ALLOC TransfusionStatus OK TO TRANSFUSE Crossmatch Result COMPATIBLE Unit Number [id number] Blood Component Type Leukocyte Reduced Red Cell Unit Division 00 Status of Unit REL FROM ALLOC Transfusion Status OK TO TRANSFUSE Crossmatch Result COMPATIBLE Unit Number [id number] Blood Component Type Leukocyte Reduced Red Cell Unit Division 00 Status of Unit TRANSFUSED Transfusion Status OK TO TRANSFUSE CrossmatchResult COMPATIBLE Unit Number [id number] Blood Component Type Leukocyte Reduced Red Cell Unit Div ision 00 Status of Unit REL FROM ALLOC Transfusion Status OK TO TRANSFUSE Crossmatch Result COMPATIBLENormalMercy Community Regional Medical CenterComment on above:Performed By: #### ERTPF, CONNER, LIP, LIVP, TEGCR ####Filomena [address] [place], [place] [id number] Vital Signs Date TimeVital SignValuePerforming TxalnsowrFxtkvimj99-29-8564 13:28-0400Body akqpeu740.8 Jorge Shepherd DPM Work Phone: [facility] HospitalZjhvavjhgb19-48-2888 13:28-0400Body mass index (BMI) [Ratio]19.08 kg/i3DyloslyJl Shepherd DPM Work Phone: [facility] HospitalVjrggzajcc55-60-4043 13:28-040Body msisqh39.33 kgJl Shepherd DPM Work Phone: [place] [address]Arsodlazjo22-02-2844 14:12-0400Body mass index (BMI) [Ratio]19.08 kg/p2Yzdcnt Caden DO Work Phone: [place] [address]Jstgibyqxd06-56-9518 14:12-0400Body usxidk43.33 kgLeanne Caden DO Work Phone: [place] [address]Sivjwnxmey04-78-0439 14:12-0400Diastolic blood mm[Hg]Kaela Caden DO Work Phone: [place] [address]Chrxdqcbtn56-82-9821 14:12-0400Heart rate57 /min Kaela Caden DO Work Phone: [place] [address]Wawmjxusgz50-78-3127 14:12-1402WnA3% (BldA) [Mass fraction]91 %Kaela Caden DO Work Phone: [facility] HospitalComment on above:3L DG94-45-6402 14:12-0400Systolic blood mm[Hg]Kaela Caden DO Work Phone: [place] [address]Jxydltjmhk07-17-6925 13:04-0400Body mass index (BMI) [Ratio]19.14 kg/m2DENIA Carpenter MD Work Phone: [place] [address]-19-2025 13:04-0400Body temperature 98.91 [degF]DENIA Carpenter MD Work Phone: [place] [address]-19-2025 13:04-0400Body cwrnur30.5 kgDENIA Carpenter MD Work Phone: [phone] [address]19-2025 13:04-0400Diastolic blood qfolxwjy12 mm[Hg]DENIA Carpenter MD Work Phone: [place] [address]-19-2025 13:04-0400Heart rate83 /min DENIA Carpenter MD Work Phone: [place] [address]-19-2025 13:04-0400Respiratory rate 20 /FranciscaDENIA Carpenter MD Work Phone: [facility]08-19-2025 13:04-2385TxZ9% (BldA) [Mass fraction]99 %NA Ron VO Work Phone: [facility] CenterComment on above:O2 at 3L/MX00-79-8367 13:04-0400Systolic blood wyniockx602 mm[Hg]NA Ron VO Work Phone: [facility]06-10-2025 10:39-0400Body cmcnio183.8 cmNancyc Reggie VO Work Phone: [facility] HospitalIggiyqpasx42-29-4794 10:39-0400Body mass index (BMI) [Ratio]18.37 kg/m2Gildardo Lacy MD Work Phone: [facility] HospitalPdfyrwiqcj84-27-6645 10:39-0400Body temperature 97.81 [degF]Gildardo Lacy MD Work Phone: [facility] HospitalIqrrsaobms51-43-0344 10:39-0400Body dmmyob55.06 kgGildardo Lacy MD Work Phone: [facility] HospitalJyhiubocpb83-96-5509 10:39-0400Diastolic blood dadwmyaj18 mm[Hg]Gildardo Lacy MD Work Phone: [facility] HospitalVmvsxykagq16-88-6489 10:39-0400Heart rate95 /min Gildardo Lacy MD Work Phone: [facility] HospitalPqqieabrye27-39-8281 10:39-0400Respiratory rate18 /minGildardo Lacy MD Work Phone: [facility] HospitalLzgvybyrbw14-26-2456 10:39-4629OvG4% (BldA) [Mass fraction]98 %Gildardo Lacy MD Work Phone: [facility] HospitalQeyjlvcvse47-25-8464 10:39-0400Systolic blood blvoasyo814 mm[Hg]Gildardo Lacy MD Work Phone: [facility] HospitalOlgfbsvolt36-61-9230 13:17-0400Body icghfc078.8 cmHassan Neely MD Work Phone: [phone] [place], [place] 4006505-12-2025 13:17-0400 Body mass index (BMI) [Ratio]19.08 kg/c6KifglfCarmen Neely MD Work Phone: [phone]05-12-2025 13:17-0400 Body tuxwix40.33 kgCarmen Neely MD Work Phone: [phone] [address]05-12-2025 13:17-0400 Diastolic blood ucsnmfig68 mm[Hg]Carmen Neely MD Work Phone: [phone]05-12-2025 13:17-0400 Heart rate86 /minCarmen Neely MD Work Phone: [phone]05-12-2025 13:17-0400 Systolic blood usksavhg513 mm[Hg]Carmen Neely MD Work Phone: [phone]05-08-2025 11:37-0400 Body apiobw458.8 cmGildardo Lacy MD Work Phone: [facility] HospitalBzvfkrzxck36-03-4846 11:37-0400Body mass index (BMI) [Ratio]20.52 kg/m2Gildardo Lacy MD Work Phone: [facility] HospitalPermttrqrs18-37-2169 11:37-0400Body temperature 98.2 [degF]Gildardo Lacy MD Work Phone: [facility] HospitalOxnjfyakjz03-93-3040 11:37-0400Body tcqtem46.86 kgGildardo Lacy MD Work Phone: [facility] HospitalYekdicllsa12-34-3991 11:37-0400Diastolic blood fpxedybi99 mm[Hg]Gildardo Lacy MD Work Phone: [facility] HospitalHvddpiziqi52-60-4513 11:37-0400Heart ickj359 /min Gildardo Lacy MD Work Phone: [facility] HospitalCtnaplawbf76-52-6206 11:37-0400Respiratory rate20 /minGildardo Lacy MD Work Phone: [facility] HospitalUjapnusdhb09-56-7054 11:37-4823PtC8% (BldA) [Mass fraction]97 %Gildardo Lacy MD Work Phone: [facility] HospitalUdsomysuce47-57-2104 11:37-0400Systolic blood mm[Hg]Gildardo Lacy MD Work Phone: [facility] HospitalWddulviboy32-26-4734 10:04-0400Body mass index (BMI) [Ratio]17.91 kg/m2Lisa Galohholz [employer] Work Phone: [facility] HospitalVemwzevuvb16-23-1798 10:04-0400Body temperature 98.4 [degF]Rashida Lanaz [employer] Work Phone: [facility] HospitalNviopaidlp37-93-0572 10:04-0400Body pqeila72.61 kgLisa Galohyuliz [employer] Work Phone: [facility] HospitalAgybcfsyry30-65-5826 10:04-0400Diastolic blood qyctuerz57 mm[Hg]Rashida Aichholz [employer] Work Phone: [facility] HospitalAzyivxsvxb45-69-5620 10:04-0400Heart rate97 /min Rashida Aichholz [employer] Work Phone: [facility] HospitalDzpuninggx91-21-9476 10:04-0400Respiratory rate20 /minLisa Galohyuliz [employer] Work Phone: [facility] HospitalFbluwvyzeh19-67-5837 10:04-2210ClW7% (BldA) [Mass fraction]97 %Rashida Galohyuliz [employer] Work Phone: [facility] HospitalQubbtutojl83-10-9380 10:04-0400Systolic blood olzwjgfw315 mm[Hg]Rashida Galohyuliz [employer] Work Phone: [facility] HospitalSiroxhzwjm79-12-3408 13:01-0500Body mass index (BMI) [Ratio]18.79 kg/m2DENIA Carpenter MD Work Phone: [facility]02-18-2025 13:01-0500Body temperature 97.9 [degF]DENIA Carpenter MD Work Phone: [facility]02-18-2025 13:01-0500Body nlvsni21.4 kgNA Ron VO Work Phone: [facility]02-18-2025 13:01-0500Diastolic blood pncnefgc94 mm[Hg]NA Ron VO Work Phone: [facility]02-18-2025 13:01-0500Heart rate95 /min DENIA Carpenter MD Work Phone: [facility]02-18-2025 13:01-0500Respiratory rate 18 /Francisca Ron VO Work Phone: [facility]02-18-2025 13:01-5989HzL3% (BldA) [Mass fraction]96 %DENIA Carpenter MD Work Phone: [facility]02-18-2025 13:01-0500Systolic blood srwyvekl715 mm[Hg]DENIA Carpenter MD Work Phone: [facility]02-07-2025 14:47-0500Body ulxxlg476.8 cmHebert Miguel MD Work Phone: [facility]02-07-2025 14:47-0500Body mass index (BMI) [Ratio]20.09 kg/u2BxafvHebert Miguel MD Work Phone: [facility]02-07-2025 14:47-0500Body ljawcv49.5 kgHebert Miguel MD Work Phone: [facility]01-29-2025 13:32-0500Body msislj175.8 cmGildardo Lacy MD Work Phone: [facility] HospitalMsphzvumns13-57-3801 13:32-0500Body mass index (BMI) [Ratio]18.37 kg/m2Gildardo Lacy MD Work Phone: [facility] HospitalVxcepzmkvp67-43-4296 13:32-0500Body temperature 97.81 [degF]Gildardo Lacy MD Work Phone: [facility] HospitalRmylbbxzgd10-40-3068 13:32-0500Body iyvemj80.06 kgGildardo Lacy MD Work Phone: [facility] HospitalCgwspzyfij31-62-4361 13:32-0500Diastolic blood yyqnfrxv68 mm[Hg]Gildardo Lacy MD Work Phone: [phone] [place], [place] [address]Pznlmsggkd01-36-3117 13:32-0500Heart nebk168 /min Gildardo Lacy MD Work Phone: [phone] [place], [place] [address]Faybrjrdmg91-04-3632 13:32-0500Respiratory rate24 /minGildardo Lacy MD Work Phone: [phone] [place], [place] [address]Bsdhgdvddt24-37-4597 13:32-2708AtO3% (BldA) [Mass fraction]90 %Gildardo Lacy MD Work Phone: [facility] HospitalDuhotnanvy34-47-5224 13:32-0500Systolic blood tcnwydsf540 mm[Hg]Gildrado Lacy MD Work Phone: [facility] HospitalPvrfagxxrj06-61-4623 13:24-0500Body .8 cmGildardo Lacy MD Work Phone: [facility] HospitalXxnqhmnybw04-04-1802 13:24-0500Body mass index (BMI) [Ratio]19.8 kg/m2Gildardo Lacy MD Work Phone: [phone] [place], [place] [id number] 13:24-0500Body temperature 98.4 [degF]Gildardo Lacy MD Work Phone: [facility] HospitalFqdgddqnqz05-18-6147 13:24-0500Body mnmhuw41.6 kg Gildardo Lacy MD Work Phone: [facility] [facility] HospitalRajvfstwqz13-47-4357 13:24-0500Diastolic blood mm[Hg]Gildardo Lacy MD Work Phone: [facility] HospitalViwejkxoco93-78-2545 13:24-0500Heart dsgg099 /min Gildardo Lacy MD Work Phone: [facility] HospitalTprtrrsrbo51-59-1699 13:24-0500Respiratory rate20 /minGildardo Lacy MD Work Phone: [facility] HospitalTjkxyhsakj17-13-3296 13:24-3052MbI7% (BldA) [Mass fraction]92 %Gildardo Lacy MD Work Phone: [facility] HospitalDdrescnfro71-77-3583 13:24-0500Systolic blood mm[Hg]Gildardo Lacy MD Work Phone: [facility] HospitalYmfmjdkkxd94-61-2839 09:56-0400Body .8 cmGildardo Lacy MD Work Phone: 1(350)[phone] [place], [place] [address]Xojsprjyqd80-11-8619 09:56-0400Body mass index (BMI) [Ratio]18.65 kg/m2Gildardo Lacy MD Work Phone: [facility] HospitalJnsufqfhwx16-38-4531 09:56-0400Body temperature 97.81 [degF]Gildardo Lacy MD Work Phone: [facility] HospitalTasqhakebv07-36-3573 09:56-0400Body tdwfse88.97 kgGildardo Lacy MD Work Phone: [facility] HospitalRlyljpjqss43-58-8038 09:56-0400Diastolic blood nabnqqtq62 mm[Hg]Gildardo Lacy MD Work Phone: [facility] HospitalNwdabbzqnz79-55-3767 09:56-0400Heart rate92 /min Gildardo Lacy MD Work Phone: [place] [address]Galgxtouni77-03-6249 09:56-0400Respiratory rate18 /minGildardo Lacy MD Work Phone: [facility] HospitalDbfpirzcmx37-89-6165 09:56-9608ApR2% (BldA) [Mass fraction]97 %Gildardo Lacy MD Work Phone: [facility] HospitalFixrdzjbvh53-42-5657 09:56-0400Systolic blood ghimmexs684 mm[Hg]Gildardo Lacy MD Work Phone: [facility] HospitalXgjbitlzci28-29-4533 09:35-0400Body zhtswa027.8 cmMasofia Hood PA Work Phone: [facility] HospitalDvvdhmitid06-27-1490 09:35-0400Body mass index (BMI) [Ratio]20.09 kg/r3Xnhektz Hood PA Work Phone: [facility] HospitalKjlcxrzubb21-56-6521 09:35-0400Body pysxix54.5 kg Cassie Tatum PA Work Phone: [facility] HospitalSqczlclycz15-38-9376 14:55-0400Body vhyixx701.7 cmEsdras Cash MD Work Phone: [facility]08-20-2024 14:55-0400Body mass index (BMI) [Ratio]19.32 kg/f7UjrhhEsdras Cash MD Work Phone: [facility]08-20-2024 14:55-0400Body temperature 98.2 [degF]Esdras Cash MD Work Phone: [facility]08-20-2024 14:55-0400Body xkfurv81.69 kgEsdras Cash MD Work Phone: [facility]08-20-2024 14:55-0400Diastolic blood tftvasyq55 mm[Hg]Esdras Cash MD Work Phone: [facility]08-20-2024 14:55-0400Heart tmwg547 /minEsdras Cash MD Work Phone: [facility]08-20-2024 14:55-0400Respiratory rate 18 /minEsdras Cash MD Work Phone: [facility]08-20-2024 14:55-1707EmW6% (BldA) [Mass fraction]95 %Esdras Cash MD Work Phone: [facility]08-20-2024 14:55-0400Systolic blood pxgoiapb077 mm[Hg]Esdras Cash MD Work Phone: [facility]08-20-2024 14:35-0400Body mass index (BMI) [Ratio]19.38 kg/m2DENIA Carpenter MD Work Phone: [facility]08-20-2024 14:35-0400Body temperature 98.2 [degF]DENIA Carpenter MD Work Phone: [facility]08-20-2024 14:35-0400Body ciymzr05.9 kgDENIA Carpenter MD Work Phone: [facility]08-20-2024 14:35-0400Diastolic blood uxpzyczr56 mm[Hg]DENIA Carpenter MD Work Phone: [facility]08-20-2024 14:35-0400Heart zwny034 /FranciscaDENIA Carpenter MD Work Phone: [facility]08-20-2024 14:35-0400Respiratory rate 18 /FranciscaDENIA Carpenter MD Work Phone: [facility]08-20-2024 14:35-3264HoA6% (BldA) [Mass fraction]95 %DENIA Carpenter MD Work Phone: [facility]08-20-2024 14:35-0400Systolic blood znybtgiu434 mm[Hg]DENIA Carpenter MD Work Phone: [facility]07-16-2024 10:29-0400Body xstiaz456.8 cmCarmen Neely MD Work Phone: [facility]07-16-2024 10:29-0400 Body mass index (BMI) [Ratio]18.65 kg/h8SzneryCarmen Neely MD Work Phone: [facility]07-16-2024 10:29-0400 Body mufetg68.97 kgCarmen Neely MD Work Phone: [facility]07-16-2024 10:29-0400 Diastolic blood pnrtnyya30 mm[Hg]Carmen Neely MD Work Phone: [facility]07-16-2024 10:29-0400 Heart rate88 /minHaflory Neely MD Work Phone: [facility]07-16-2024 10:29-0400 Systolic blood bkfvuaiy023 mm[Hg]Carmen Neely MD Work Phone: [facility]04-16-2024 14:20-0400 Body fcstci441.7 cmEsdras Cash MD Work Phone: [facility]04-16-2024 14:20-0400Body temperature 97.5 [degF]Esdras Cash MD Work Phone: [place] [address]-16-2024 14:20-0400Body esjnvk59.7 kgEsdras Cash MD Work Phone: [facility]04-16-2024 14:20-0400Diastolic blood bbhuaroy30 mm[Hg]Esdras Cash MD Work Phone: [facility]04-16-2024 14:20-0400Heart ghjo483 /minEsdras Cash MD Work Phone: [place] [address]-16-2024 14:20-0400Respiratory rate 18 /minEsdras Cash MD Work Phone: [place] [address]-16-2024 14:20-7788ZrV0% (BldA) [Mass fraction]94 %Esdras Cash MD Work Phone: [place] [address]-16-2024 14:20-0400Systolic blood sqbeagay137 mm[Hg]Esdras Cash MD Work Phone: [place] [address]-16-2024 14:00-0400Body mass index (BMI) [Ratio]21.2 kg/m2DENIA Carpenter MD Work Phone: [place] [address]-16-2024 14:00-0400Body temperature 98.49 [degF]DENIA Carpenter MD Work Phone: [facility]04-16-2024 14:00-0400Diastolic blood mgiheejz43 mm[Hg]DENIA Carpenter MD Work Phone: [facility]04-16-2024 14:00-0400Heart ekko248 /Francisca Ron VO Work Phone: [facility]04-16-2024 14:00-3799TcS4% (BldA) [Mass fraction]93 %NA Ron VO Work Phone: [facility]04-16-2024 14:00-0400Systolic blood xnttogsr182 mm[Hg]DENIA Carpenter MD Work Phone: [facility]01-03-2024 11:18-0500Body .8 cmCarmen Neely MD Work Phone: [facility]01-03-2024 11:18-0500 Body mass index (BMI) [Ratio]21.67 kg/n0NkjyrjCarmen Neely MD Work Phone: [facility]01-03-2024 11:18-0500 Body igdtis19.49 kgCarmen Neely MD Work Phone: [facility]01-03-2024 11:18-0500 Diastolic blood mm[Hg]Carmen Neely MD Work Phone: [facility]01-03-2024 11:18-0500 Heart rate72 /minCarmen Neely MD Work Phone: [facility]01-03-2024 11:18-0500 Systolic blood pqcffcea565 mm[Hg]Carmen Neely MD Work Phone: [facility]02-07-2023 10:18-0500 Body skizfm449.8 cmGildardo Btuler Naderer Work Phone: 1(219) [phone]-Nvzhv [facility] [address] DO Work Phone: 1(861) [phone] 10:18-0500Body mass index (BMI) [Ratio] 25.83 kg/m2Marc A Naderer Work Phone: [id number]-Fbxft [facility] [address] DO Work Phone: 1(264) 514-249302-07-2023 10:18-0500Body surface area Derived from formula2 m2Marc A Naderer Work Phone: [id number]-Dxwxc [facility] [address] DO Work Phone: 1(966) 766-955402-07-2023 10:18-0500Body axvuiv24.65 kgMarc A Naderer Work Phone: [id number]-ChrjvChildren[facility] DO Work Phone: 1(253) 956-406702-07-2023 10:18-0500Diastolic blood fpaklubj69 mm[Hg] Gildardo Carrie Naderer Work Phone: mp441-0545RI-OxeqnSh[facility] 250 DO Work Phone: 1(310) 605-568902-07-2023 10:18-0500Heart rate75 /minMarc A Naderer Work Phone: [phone]-YussqShriners [facility] 250 DO Work Phone: 1(826) 747-302302-07-2023 10:18-0500Systolic blood saaouskd002 mm[Hg] Gildardo Carrie Naderer Work Phone: [id number]-FdkotShriners [facility] 250 DO Work Phone: 1(662) 176-408801-17-2023 10:08-0500Body aztrxm949.7 cmEsdras Cash MD Work Phone: [facility]01-17-2023 10:08-0500Body temperature 97.7 [degF]Esdras Cash MD Work Phone: [facility]01-17-2023 10:08-0500Body ofahwi66.65 kgEsdras Cash MD Work Phone: [facility]01-17-2023 10:08-0500Diastolic blood mm[Hg]Esdras Cash MD Work Phone: [facility]01-17-2023 10:08-0500Heart rate82 /min Esdras Cash MD Work Phone: [facility]01-17-2023 10:08-0500Respiratory rate 16 /minEsdras Cash MD Work Phone: [facility]01-17-2023 10:08-8960LyU4% (BldA) [Mass fraction]96 %Esdras Cash MD Work Phone: [facility]01-17-2023 10:08-0500Systolic blood pxocmynd154 mm[Hg]Esdras Cash MD Work Phone: [facility]12-15-2022 11:11-0500Body temperature 97.5 [degF]DENIA Carpenter MD Work Phone: [facility]12-15-2022 11:11-0500Body zndobq27.93 kgDENIA Carpenter MD Work Phone: [facility]12-15-2022 11:11-0500Diastolic blood lprmydrp90 mm[Hg]DENIA Carpenter MD Work Phone: [facility]12-15-2022 11:11-0500Heart rate74 /min DENIA Carpenter MD Work Phone: [facility]12-15-2022 11:11-0500Respiratory rate 18 /FranciscaDENIA Carpenter MD Work Phone: [facility]12-15-2022 11:11-8509WzL4% (BldA) [Mass fraction]97 %DENIA Carpenter MD Work Phone: [facility]12-15-2022 11:11-0500Systolic blood euedkotf237 mm[Hg]DENIA Carpenter MD Work Phone: [facility]10-25-2022 13:52-0400Body temperature 97.5 [degF]DENIA Carpenter MD Work Phone: [facility]10-25-2022 13:52-0400Body .11 kgDENIA Carpenter MD Work Phone: [facility]10-25-2022 13:52-0400Diastolic blood mm[Hg]DENIA Carpenter MD Work Phone: [facility]10-25-2022 13:52-0400Heart rate92 /min DENIA Carpenter MD Work Phone: [facility]10-25-2022 13:52-0400Respiratory rate 16 /FranciscaDENIA Carpenter MD Work Phone: [facility]10-25-2022 13:52-1212RmB4% (BldA) [Mass fraction]95 %DENIA Carpenter MD Work Phone: [facility]10-25-2022 13:52-0400Systolic blood bbinjfcl643 mm[Hg]DENIA Carpenter MD Work Phone: [facility]10-18-2022 10:26-0400Body oycymc529.7 cmEsdras Cash MD Work Phone: [facility]10-18-2022 10:26-0400Body temperature 97.59 [degF]Esdras Cash MD Work Phone: [facility]10-18-2022 10:26-0400Body ehiruj31.83 kgEsdras Cash MD Work Phone: [facility]10-18-2022 10:26-0400Diastolic blood ysjyanev17 mm[Hg]Esdras Cash MD Work Phone: [facility]10-18-2022 10:26-0400Heart rate72 /min Esdras Cash MD Work Phone: [facility]10-18-2022 10:26-0400Respiratory rate 18 /minEsdras Cash MD Work Phone: [facility]10-18-2022 10:26-5667TbY6% (BldA) [Mass fraction]96 %Esdras Cash MD Work Phone: [facility]10-18-2022 10:26-0400Systolic blood sumgafdz122 mm[Hg]Esdras Cash MD Work Phone: [facility]09-12-2022 12:00-934569 1Mbindu Lacy Work Phone: [id number]-Nawyk [facility] [address] [place] Work Phone: Comment on above:[id number] 10:45-660885 1 Gildardo Lacy Work Phone: [phone]-Iykkm [facility] [address] DO Work Phone: Comment on above:[id number] 13:12-0400Body cnqbdorhfvm03.59 [degF]DENIA Carpenter MD Work Phone: [facility]08-25-2022 13:12-0400Body qismpr45.66 kgDENIA Carpenter MD Work Phone: [facility]08-25-2022 13:12-0400Diastolic blood dhmhysog30 mm[Hg]DENIA Carpenter MD Work Phone: [facility]08-25-2022 13:12-0400Heart rate81 /min DENIA Carpenter MD Work Phone: [facility]08-25-2022 13:12-0400Respiratory rate 16 /FranciscaDENIA Carpenter MD Work Phone: [facility]08-25-2022 13:12-1546HfF8% (BldA) [Mass fraction]99 %DENIA Carpenter MD Work Phone: [facility]08-25-2022 13:12-0400Systolic blood bdekbvyg313 mm[Hg]DENIA Carpenter MD Work Phone: [facility]07-27-2022 10:50-0400Diastolic blood mahlpsow96 mm[Hg]Gildardo Lacy Work Phone: [id number]-Orkav [facility] [address] DO Work Phone: 1(588) 886-806307-27-2022 10:50-0400Systolic blood mm[Hg] Gildardo A Naderer Work Phone: [id number]-Jyhnk [facility] [address] DO Work Phone: 1(616) [phone] 10:47-0400Body siiiik058.8 cmMarc A Naderer Work Phone: [id number]-ZimwqChildren'S [place] 250 DO Work Phone: 1(910) 457-647307-27-2022 10:47-0400Body mass index (BMI) [Ratio] 23.53 kg/m2Mar A Naderer Work Phone: mp513-5924KG-BhopcChildren'S [place] 250 DO Work Phone: 1(100) [phone] 10:47-0400Body surface area Derived from formula1.92 m2[facility] [place] A Naderer Work Phone: mp336-9359RQ-RroakChildren'S [place] 250 DO Work Phone: 1(419) 497-536707-27-2022 10:47-0400Body cjwasf16.39 kgMar A Naderer Work Phone: mp356-6190SG-XtztjChildren'S [place] 250 DO Work Phone: 1(985) 557-768107-27-2022 10:47-0400Diastolic blood mm[Hg] Gildardo A Naderer Work Phone: mp979-7658ZG-Igjbg [facility] [address] DO Work Phone: 1(293) 314-209007-27-2022 10:47-0400Heart rate92 /minMarc A Naderer Work Phone: mp385-9533LO-Yyazd [facility] [address] DO Work Phone: 1(827) [phone] 10:47-0400Systolic blood tuaptvxo873 mm[Hg] Gildardo A Naderer Work Phone: mp283-6351CH-Xzyei [facility] [address] DO Work Phone: 1(597) 928-403707-27-2022 10:4778901 1Marc Carrie Lacy Work Phone: 1(247) [phone]-Wdicg [facility] [address] DO Work Phone: Comment on above:[id number] 10:53-0400Body sdodjnwqkvk48.9 [degF]DENIA Carpenter MD Work Phone: [facility]07-21-2022 10:53-0400Body uxzfyc13.93 kgDENIA Carpenter MD Work Phone: [facility]07-21-2022 10:53-0400Diastolic blood hqlimwer34 mm[Hg]DENIA Carpenter MD Work Phone: [facility]07-21-2022 10:53-0400Heart cxsn915 /FranciscaDENIA Carpenter MD Work Phone: [facility]07-21-2022 10:53-0400Respiratory rate 18 /FranciscaDENIA Carpenter MD Work Phone: [facility]07-21-2022 10:53-5094ItK8% (BldA) [Mass fraction]97 %DENIA Carpenter MD Work Phone: [facility]07-21-2022 10:53-0400Systolic blood jtgyoppx741 mm[Hg]DENIA Carpenter MD Work Phone: [facility]06-02-2022 13:55-0400Body .7 cmEsdras Cash MD Work Phone: [facility]06-02-2022 13:55-0400Body temperature 98.01 [degF]Esdras Cash MD Work Phone: [facility]06-02-2022 13:55-0400Body fwanax05.39 kgEsdras Cash MD Work Phone: [facility]06-02-2022 13:55-0400Diastolic blood ynuzslcs00 mm[Hg]Esdras Cash MD Work Phone: [facility]06-02-2022 13:55-0400Heart rate97 /min Esdras Cash MD Work Phone: [facility]06-02-2022 13:55-0400Respiratory rate 16 /minEsdras Cash MD Work Phone: [facility]06-02-2022 13:55-6349JkU7% (BldA) [Mass fraction]98 %Esdras Cash MD Work Phone: [facility]06-02-2022 13:55-0400Systolic blood utiobiyy091 mm[Hg]Esdras Cash MD Work Phone: [facility]05-23-2022 12:09-0400Body airqxp622.7 cmEsdras Cash MD Work Phone: [facility]05-23-2022 12:09-0400Body temperature 97.59 [degF]Esdras Cash MD Work Phone: [facility]05-23-2022 12:09-0400Body flkkyx09.12 kgEsdras Cash MD Work Phone: [facility]05-23-2022 12:09-0400Diastolic blood rxcrfhfi27 mm[Hg]Esdras Cash MD Work Phone: [facility]05-23-2022 12:09-0400Heart rate81 /min Esdras Cash MD Work Phone: [facility]05-23-2022 12:09-0400Respiratory rate 16 /minEsdras Cash MD Work Phone: [facility]05-23-2022 12:09-5716VmD0% (BldA) [Mass fraction]97 %Esdras Cash MD Work Phone: [facility]05-23-2022 12:09-0400Systolic blood oihmlmnh767 mm[Hg]Esdras Cash MD Work Phone: [facility]05-16-2022 11:57-0400Body pwmeim822.7 cmMindy Mejia PA-C Work Phone: 1(990) [phone] [address]16-2022 11:57-0400Body temperature 96.69 [degF]Anthony Mejia PA-C Work Phone: 1(514) [phone] [address]16-2022 11:57-0400Body tyvnyn51.11 kgMinjerome Mejia PA-C Work Phone: [facility]05-16-2022 11:57-0400Diastolic blood dojwndag91 mm[Hg]Anthony Mejia PA-C Work Phone: 1(451) 573-243532 [address]16-2022 11:57-0400Heart vegr466 /minMindy Mejia PA-C Work Phone: 1(876) 490-434732 [address]16-2022 11:57-0400Respiratory rate 18 /minMindy Mejia PA-C Work Phone: [facility]05-16-2022 11:57-6582NtH7% (BldA) [Mass fraction]99 %Anthony Mejia PA-C Work Phone: [facility]05-16-2022 11:57-0400Systolic blood bivndhqc344 mm[Hg]Anthony Mejia PA-C Work Phone: [facility]05-16-2022 11:23-0400Body temperature 96.69 [degF]Mike Brown MD Work Phone: [facility]05-16-2022 11:23-0400Body hamnjs18.11 kgMike Brown MD Work Phone: [place] [address]-16-2022 11:23-0400Diastolic blood xqyfyjad85 mm[Hg]Mike Brown MD Work Phone: [place] [address]-16-2022 11:23-0400Heart lqjs569 /Judith Brown MD Work Phone: [facility]05-16-2022 11:23-0400Respiratory rate 18 /minSemily Brown MD Work Phone: [facility]05-16-2022 11:23-0777GqS7% (BldA) [Mass fraction]99 %Mike Brown MD Work Phone: [facility]05-16-2022 11:23-0400Systolic blood mm[Hg]Mike Brown MD Work Phone: [facility]05-09-2022 11:46-0400Body inavfc178.7 cmEsdras Cash MD Work Phone: [facility]05-09-2022 11:46-0400Body temperature 97.59 [degF]Esdras Cash MD Work Phone: [facility]05-09-2022 11:46-0400Body .66 kgEsdras Cash MD Work Phone: [facility]05-09-2022 11:46-0400Diastolic blood vdjuhokj11 mm[Hg]Esdras Cash MD Work Phone: [facility]05-09-2022 11:46-0400Heart rate81 /min Esdras Cash MD Work Phone: [facility]05-09-2022 11:46-0400Respiratory rate 16 /minEsdras Cahs MD Work Phone: [facility]05-09-2022 11:46-8226NgQ1% (BldA) [Mass fraction]97 %Esdras Cash MD Work Phone: [facility]05-09-2022 11:46-0400Systolic blood xzjejpyu306 mm[Hg]Esdras Cash MD Work Phone: [facility]05-09-2022 11:25-0400Body temperature 97.59 [degF]DENIA Carpenter MD Work Phone: [facility]05-09-2022 11:25-0400Body ianlvy50.38 kgDENIA Carpenter MD Work Phone: [facility]05-09-2022 11:25-0400Diastolic blood inzecdsb33 mm[Hg]DENIA Carpenter MD Work Phone: [facility]05-09-2022 11:25-0400Heart rate78 /min DENIA Carpenter MD Work Phone: [facility]05-09-2022 11:25-0400Respiratory rate 16 /FranciscaDENIA Carpenter MD Work Phone: [facility]05-09-2022 11:25-1542QjT3% (BldA) [Mass fraction]99 %DENIA Carpenter MD Work Phone: [facility]05-09-2022 11:25-0400Systolic blood pdihhbrz903 mm[Hg]DENIA Carpenter MD Work Phone: [facility]05-02-2022 09:14-0400Body rkucbl939.7 cmMinjerome Mejia PA-C Work Phone: [facility]05-02-2022 09:14-0400Body temperature 98.01 [degF]Anthony Mejia PA-C Work Phone: [facility]05-02-2022 09:14-0400Body unbpij35.66 kgMindy Mejia PA-C Work Phone: [facility]05-02-2022 09:14-0400Diastolic blood edojyndl12 mm[Hg]Anthony Mejia PA-C Work Phone: [facility]05-02-2022 09:14-0400Heart hbtu089 /minMindy Mejia PA-C Work Phone: [facility]05-02-2022 09:14-0400Respiratory rate 16 /minMindy Mejia PA-C Work Phone: [facility]05-02-2022 09:14-5810CdI9% (BldA) [Mass fraction]98 %Anthony Mejia PA-C Work Phone: [facility]05-02-2022 09:14-0400Systolic blood fuliiapg248 mm[Hg]Anthony Weaver PA-C Work Phone: [facility]04-25-2022 09:00-0400Body msowwk897.7 cmChair Kelsey Work Phone: [facility]04-25-2022 09:00-0400Body temperature 97.3 [degF]Chair Kelsey Work Phone: [facility]04-25-2022 09:00-0400Body ofptfp15.4 kgChair Kelsey Work Phone: [facility]04-25-2022 09:00-0400Diastolic blood cqlmthri86 mm[Hg]Chair Kelsey Work Phone: [facility]04-25-2022 09:00-0400Heart rate85 /min Chair Kelsey Work Phone: [facility]04-25-2022 09:00-0400Respiratory rate 16 /minChair Kelsey Work Phone: [facility]04-25-2022 09:00-7698ChK9% (BldA) [Mass fraction]98 %Chair Kelsey Work Phone: [facility]04-25-2022 09:00-0400Systolic blood mm[Hg]Chair Kelsey Work Phone: [facility]04-18-2022 13:25-0400Body byxrpw711.7 cmNathaly Biggs APRN.SPOTTER Work Phone: [place] [address]-18-2022 13:25-0400Body temperature 97.59 [degF]Nathaly Biggs APRN.SPOTTER Work Phone: [place] [address]-18-2022 13:25-0400Body itlest27.38 kgNathaly Biggs APRNVinodSPOTTER Work Phone: [facility]04-18-2022 13:25-0400Diastolic blood xddqnjxi08 mm[Hg]Nathaly Biggs APRN.SPOTTER Work Phone: [place] [address]-18-2022 13:25-0400Heart rate80 /min Nathaly Biggs HUMIDIFIER MAINTENANCE WORKER.SPOTTER Work Phone: [place] [address]-18-2022 13:25-0400Respiratory rate 16 /minNathaly Biggs HUMIDIFIER MAINTENANCE WORKER.SPOTTER Work Phone: [place] [address]-18-2022 13:25-4869WiI4% (BldA) [Mass fraction]96 %Nathaly Biggs HUMIDIFIER MAINTENANCE WORKER.SPOTTER Work Phone: [place] [address]-18-2022 13:25-0400Systolic blood bhyptioh506 mm[Hg]Nathaly Biggs HUMIDIFIER MAINTENANCE WORKER.SPOTTER Work Phone: [place] [address]-18-2022 12:25-0400Body temperature 97.7 [degF]DENIA Carpenter MD Work Phone: [place] [address]-18-2022 12:25-0400Body .93 kgDENIA Carpenter MD Work Phone: [place] [address]-18-2022 12:25-0400Diastolic blood xycklqry96 mm[Hg]DENIA Carpenter MD Work Phone: [place] [address]-18-2022 12:25-0400Heart rate77 /min DENIA Carpenter MD Work Phone: [place] [address]-18-2022 12:25-0400Respiratory rate 16 /FranciscaDENIA Carpenter MD Work Phone: [place] [address]-18-2022 12:25-8191AnW0% (BldA) [Mass fraction]98 %DENIA Carpenter MD Work Phone: [place] [address]-18-2022 12:25-0400Systolic blood jdmaodpm101 mm[Hg]DNEIA Carpenter MD Work Phone: [place] [address]-11-2022 12:28-0400Body .7 Edilberto Wilson Work Phone: [place] [address]-11-2022 11:47-0400Body vaswqg077 cm Esdras Cash MD Work Phone: [place] [address]-11-2022 11:47-0400Body temperature 97.81 [degF]Esdras Cash MD Work Phone: [place] [address]-11-2022 11:47-0400Body kruxuv93.66 kgEsdras Cash MD Work Phone: [place] [address]-11-2022 11:47-0400Diastolic blood addnwzhh46 mm[Hg]Esdras Cash MD Work Phone: [place] [address]-11-2022 11:47-0400Heart rate72 /min Esdras Cash MD Work Phone: [place] [address]-11-2022 11:47-0400Respiratory rate 16 /minEsdras Cash MD Work Phone: [place] [place] [address]-11-2022 11:47-9576RoU4% (BldA) [Mass fraction]98 %Esdras Cash MD Work Phone: [place] [address]-11-2022 11:47-0400Systolic blood siwfyzkf014 mm[Hg]Esdras Cash MD Work Phone: [place] [address]-11-2022 10:32-0400Body temperature 97.7 [degF]DENIA Carpenter MD Work Phone: [place] [address]-11-2022 10:32-0400Body amkopd28.11 kgDENIA Carpenter MD Work Phone: [place] [address]-11-2022 10:32-0400Diastolic blood myueucem36 mm[Hg]DENIA Carpenter MD Work Phone: [place] [address]-11-2022 10:32-0400Heart rate79 /min DENIA Carpenter MD Work Phone: [place] [address]-11-2022 10:32-0400Respiratory rate 16 /FranciscaDENIA Carpenter MD Work Phone: [facility]04-11-2022 10:32-3367ZmD3% (BldA) [Mass fraction]99 %DENIA Carpenter MD Work Phone: [facility]04-11-2022 10:32-0400Systolic blood ncfooesb253 mm[Hg]DENIA Carpenter MD Work Phone: [facility]03-31-2022 16:11-0400Body uslktn291 cm Esdras Cash MD Work Phone: [facility]03-31-2022 16:11-0400Body temperature 97 [degF]Esdras Cash MD Work Phone: [facility]03-31-2022 16:11-0400Body yuzmtr96.84 kgEsdras Cash MD Work Phone: [facility]03-31-2022 16:11-0400Diastolic blood iytqdgde70 mm[Hg]Esdras Cash MD Work Phone: [facility]03-31-2022 16:11-0400Heart rate68 /min Esdras Cash MD Work Phone: [facility]03-31-2022 16:11-0400Respiratory rate 16 /minEsdras Cash MD Work Phone: [facility]03-31-2022 16:11-8478XoD4% (BldA) [Mass fraction]99 %Esdras Cash MD Work Phone: [facility]03-31-2022 16:11-0400Systolic blood pbmmfhfa899 mm[Hg]Esdras Cash MD Work Phone: [facility]03-29-2022 11:02-0400Body temperature 98.29 [degF]DENIA Carpenter MD Work Phone: [facility]03-29-2022 11:02-0400Body nfyshz42.11 kgDENIA Carpenter MD Work Phone: [place] [address]-29-2022 11:02-0400Diastolic blood fabhzvmn25 mm[Hg]DENIA Carpenter MD Work Phone: [facility]03-29-2022 11:02-0400Heart rate69 /min DENIA Carpenter MD Work Phone: [facility]03-29-2022 11:02-0400Respiratory rate 16 /FranciscaDENIA Carpenter MD Work Phone: [facility]03-29-2022 11:02-0424OwP6% (BldA) [Mass fraction]99 %DENIA Carpenter MD Work Phone: [facility]03-29-2022 11:02-0400Systolic blood mm[Hg]DENIA Carpenter MD Work Phone: [facility]09-21-2018 18:46-0400Respiratory rate NOT REPORTEDRATUL Berger HospitalComment on above: Performed By: #### OHP, IOCAL ####[facility] [address] [place] [address](356) [phone] 23:55-0400Respiratory rateNOT REPORTEDRATUL Berger HospitalComment on above:Performed By: #### ERTPF, CONNER, LIP, LIVP, TEGCR ####[facility] [address] [place] [address](745) [phone] 22:58-0400Respiratory rateNOT REPORTEDRATUL Berger HospitalComment on above:Performed By: #### OHP, IOCAL ####[facility] [address] [place] [address] 01-19-2018 22:10-0400Respiratory rateNOT REPORTEDRATUL Berger HospitalComment on above:Performed By: #### OHP, IOCAL ####[facility] [address] [place] [address](709) [phone] 21:07-0400 Respiratory rateNOT REPORTEDRAT [facility] Comment on above:Performed By: #### ERTPF, CONNER, LIP, LIVP, TEGCR ####[facility] [address] [place] [address] Encounters Encounter DateEncounter TypeCare ProviderFacilityStart: 03-14-2025 End: 92-78-7225xbtybbfldzE PHILLIP ENGELERFacility:[facility] Start: 44-38-9248zvprcxdlflS PHILLIP ENGELERFacility:[facility] Start: 03-06-2025 End: 67-41-6287pkumdmlcucSSSGRTACT SPEERFacility:[facility]tart: 03-06-2025 End: 81-71-6444wnzjynikctSzaj Naderer MD Work Phone: [phone]-Gbpgabxyw Health NeurologyStart: 03-06-2025 End: 24-99-1794Jovaxws encounter procedureNicole Simone [facility] Work Phone: Start: 02-27-2025 End: 19-12-5075pgmznhzpptBhosvmm Vytautas Giedraitis MDFacility:LIZBETH Little Start: 02-21-2025 End: 80-95-8052uisatisazyB PHILLIP ENGELERFacility:[facility] Start: 98-87-5286Fnk-patient / Non-visitJacqueline Jj MD-[facility] Work Phone: Start: 01-10-2025 End: 72-02-4506Zbrsgh Raj Shepherd DPM Work Phone: noMO Geoff PodiatryStart: 01-10-2025 End: 21-14-4043Sxvgbw Raj Shepherd DPM Work Phone: NOKearney [facility] Hospitalt PodiatryStart: 01-10-2025 End: 25-50-4808Owslje outpatient new 45 minutesJl Concepcion Tyrel DPM Work Phone: noms [facility] PodiatryComment on above:Metatarsalgia of left foot (Primary Dx); Closed displaced fracture of second metatarsal bone of left foot, sequela; Left foot pain; Equinus contracture of left ankle; Other synovitis and tenosynovitis, left ankle and footStart: 01-10-2025 End: 25-16-4286clcoxuyakwNZHLZFT Concepcion SCHAFERNot AvailableStart: 12-30-2024 End: 62-10-5226Emaawjfwk encounterMarjavid Lacy MD Work Phone: noMS [facility] MedicineStart: 12-21-2024 End: 50-88-2681Bzfhbl outpatient new 45 minutesLeanne Christopher Caden DO Work Phone: noms FNR PULMComment on above:Cigarette smoker (Primary Dx); Chronic obstructive pulmonary disease, unspecified COPD type (HCC); Chronic hypoxic respiratory failure (HCC)Start: 12-21-2024 End: 12-14-3728lnrolnmztbOWBYIA K STRACKNot AvailableStart: 12-21-2024 End: 41-55-3768Pcgmml flowsheetLeanne K Caden DO Work Phone: noms FNR PULMStart: 12-21-2024 End: 59-94-0833Wzpzwe flowsheetLeanne K Caden DO Work Phone: noms FNR PULMStart: 12-21-2024 End: 61-10-3411Bipfjxgfl encounterMarjavid Lacy MD Work Phone: noms [facility] MedicineStart: 12-20-2024 End: 21-99-5616Oufykcsqs Result EncounterGeneric External Data ProviderNOMS External Department UnsolicitedStart: 12-20-2024 End: 54-89-3509Ozxofrlwh Result EncounterGeneric External Data ProviderNOMS External Department UnsolicitedStart: 12-20-2024 End: 61-00-3472Kgwgzg outpatient visit 15 minutesG Сергей Carpenter MD Work Phone: Radiation OncologyComment on above:Hypothyroidism due to acquired atrophy of thyroid (Primary Dx)Start: 12-20-2024 End: 46-73-9512xqxmtiaxifVTino HERRERAacility:[facility] Start: 12-13-2024 End: 84-04-2520GfehycYuxy Naderer MD Work Phone: noms CWM FMComment on above:Chronic obstructive pulmonary disease, unspecified COPD type (HCC); DDD (degenerative disc disease), thoracicStart: 12-08-2024 End: 99-02-5578mgkfhqszlrOMRSZHCO [facility] Systemtart: 11-18-2024 End: 33-04-3829Zyzbktcmc for other preprocedural examinationChillicothe Hospitaltart: 11-18-2024 End: 78-77-3549Arhuvmjzcl and management of inpatientHolzer Medical Center – Jacksontart: 11-17-2024 End: 52-46-3684zgsrknctivHJHYGerman Hospital Start: 11-16-2024 End: 97-71-9304IpmyzsSbkvHeather Lacy MD Work Phone: noms CWM FMComment on above:DDD (degenerative disc disease), thoracicStart: 11-15-2024 End: 30-56-1921bboqadpqtrMTKNIGV ROBERTSTriHealth Start: 11-07-2024 End: 84-62-2399zvijsfbhqnHVXP NADERERNot AvailableStart: 12-47-4052Okvhmhpaz for other preprocedural examinationMercy Health [facility] Start: 11-02-2024 End: 49-22-4298Plpowflpzkvlh examination Collin PHAN Work Phone: noms HealthcareStart: 10-31-2024 End: 67-70-1461mynjwmwhrqXSQNPTMercy Memorial Hospitaltart: 10-26-2024 End: 28-27-4475tybpyievytCBVVPSL [facility] Start: 10-17-2024 End: 40-50-6300BfwxwqXlxt Naderer MD Work Phone: noMS CWM FMComment on above:Chronic obstructive pulmonary disease, unspecified COPD type (HCC) (Primary Dx); Chronic hypoxic respiratory failure (HCC); DDD (degenerative disc disease), thoracicStart: 10-11-2024 End: 65-09-1744Eracxyleni Lacy MD Work Phone: noms CWM FMStart: 10-11-2024 End: 23-30-8074Iahueprosa Lacy MD Work Phone: noMS CWM FMStart: 10-11-2024 End: 81-45-1724Mdissr outpatient visit 25 minutesGildardo Lacy MD Work Phone: noms CWM FMComment on above:Essential hypertension (CMS/HCC) (Primary Dx); Chronic obstructive pulmonary disease, unspecified COPD type (CMS/HCC); Chronic hypoxic respiratory failure (CMS/HCC); Thoracic spondylosis; MDD (major depressive disorder), recurrent episode, mild (HCC) (CMS/HCC); Primary insomnia; Tongue cancer (CMS/HCC); Occlusion of left internal carotid arteryStart: 10-11-2024 End: 91-55-3807rhzcdazrwnZAJL NADERERNot AvailableStart: 09-19-2024 End: 65-47-7030VxnaidCkgu Naderer MD Work Phone: noms CWM FMComment on above:DDD (degenerative disc disease), thoracicStart: 09-12-2024 End: 87-01-1273Tpjwlz outpatient visit 25 minutesCarmen Neely MD Work Phone: uh [facility] Carolina HospitalComment on above:Chronic obstructive pulmonary disease, unspecified COPD type (Multi) (Primary Dx); PVD (peripheral vascular disease) (CMS-HCC); Current smoker; Dyspnea, unspecified type; Hyperlipidemia, unspecified hyperlipidemia type; TIA (transient ischemic attack)Start: 09-12-2024 End: 98-35-5359yjmhpsbsccTOKSMZ [facility] AmbulatoryStart: 09-08-2024 End: 26-65-3207Gprggdleni Lacy MD Work Phone: noms CWM FMStart: 09-08-2024 End: 40-96-9471Dyczsnrosa Lacy MD Work Phone: NONK CWM FMStart: 09-08-2024 End: 73-82-5287Wjigkrpblfqt care manage srvc 7 day dischargeGildardo Lacy MD Work Phone: noms CWM FMComment on above:Pneumonia due to infectious organism, unspecified laterality, unspecified part of lung (Primary Dx); Chronic obstructive pulmonary disease with acute exacerbation (CMS/HCC); Acute hypoxic respiratory failure ([facility]/HCC); Chronic obstructive pulmonary disease, unspecified COPD type (CMS/HCC); Tongue cancer ([facility]/HCC); Dyslipidemia ([facility]/HCC)Start: 09-08-2024 End: 88-84-7250fkocilszifZSAG NADERERNot AvailableStart: 09-06-2024 End: 35-50-9909XblcogBpcw Naderer MD Work Phone: noms CWM FMComment on above:Primary insomniaRefill RequestStart: 09-05-2024 End: 77-43-9558Aggour outpatient visit 25 minutesMireya Restrepo MD Work Phone: [facility] Department of ProMedicKettering Health TroyComment on above:Sequelae, post-stroke (Primary Dx); PAD (peripheral artery disease); Hypertension, unspecified type; Hyperlipidemia, unspecified hyperlipidemia type; Left ventricular hypertrophy; ICAO (internal carotid artery occlusion), left; Chronic obstructive pulmonary disease, unspecified COPD type ([facility]-HCC); History of throat cancer; Tobacco dependence; Alcoholism ([facility])Start: 09-05-2024 End: 98-33-5302woueeuaqbiNTNI AFREENProMercy Health St. [facility] Hospital HospitalStart: 08-30-2024 End: 47-04-3600Lytpdpcqk Result EncounterGeneric External Data ProviderNOMS External Department UnsolicitedStart: 08-30-2024 End: 70-58-0647Cdhfxolzg Result EncounterGeneric External Data ProviderNOMS External Department UnsolicitedStart: 08-24-2024 End: 17-14-3792QpstmpYmoe Naderer MD Work Phone: noms CWM FMComment on above:DDD (degenerative disc disease), thoracicStart: 08-03-2024 End: 26-48-8328Oidurc flowsheetRashida Zarate [employer] Work Phone: NOMS CWM FMStart: 08-03-2024 End: 42-83-0572Vmzcyi flowsheetRashida Zarate [employer] Work Phone: NOMS CWM FMStart: 08-03-2024 End: 44-08-8949Bwkgrf outpatient visit [address] [place], [place] [address]Rashida Zarate NP Work Phone: NOMS CWM FMComment on above:Cerebrovascular accident (CVA), unspecified mechanism (CMS/HCC) (Primary Dx); Occlusion of left internal carotid artery; Dyslipidemia (CMS/HCC); Essential hypertension (CMS/HCC)Start: 08-03-2024 End: 50-90-5648tshqrsmwibWONH Raghav AvailableStart: 97-28-5055jalfpsmqqcNorthport Medical Center Ambulatory PPGStart: 07-26-2024 End: 52-01-6162Zqmcojuly encounterTa-Jacqueline JustinProMedica Neurology, A Department of ProMedicMart[facility]erry Hospital HospitalComment on above:STROKE apptStart: 07-25-2024 End: 93-95-8882Iioomvimh department patient visitDe [facility] Center Ambulatory PPGStart: 07-25-2024 End: 83-28-2113LvxeddIzof Naderer MD Work Phone: NOFN CWM FMComment on above:DDD (degenerative disc disease), thoracicStart: 07-23-2024 End: 63-41-1279Ziuhpyegk department patient visitMAR NADERERProMedica Hospital Ambulatory PPGStart: 06-24-2024 End: 82-75-4640DqtdgzIfii Naderer MD Work Phone: noms CWM FMComment on above:DDD (degenerative disc disease), thoracicStart: 06-21-2024 End: 03-73-8777Imyzfe outpatient visit 15 minutesG Сергей Carpenter MD Work Phone: Radiation OncologyComment on above:Head and neck cancer (HCC) (Primary Dx)Start: 06-21-2024 End: 75-08-7580lmkijjvvqmK PHILLIP ENGELERFacility:[facility] Start: 06-10-2024 End: 26-71-1247Uunjodhcq Result EncounterGeneric External Data ProviderNOMS External Department UnsolicitedStart: 06-10-2024 End: 59-08-8886Sjwtgfibl Result EncounterGeneric External Data ProviderNOMS External Department UnsolicitedStart: 06-10-2024 End: 04-58-8951Nqgybjx encounter procedureHebert Miguel MD Work Phone: OrthopaedicsComment on above:Nontraumatic complete tear of right rotator cuff (Primary Dx); Biceps tendinitis of right upper extremity; SmokingStart: 06-10-2024 End: 56-42-6242gqggdcjmumPTCPK HOFacility:[facility] Hospitaltart: 06-10-2024 End: 25-75-7174Viuyzmwcjo hospital visit by physicianXr Main M91ZplhacemhAlqyasp on above:Pain [R52]Start: 06-07-2024 End: 00-59-8466Bhszye Yanely Miguel MD Work Phone: OrthopaedicsComment on above:Pain (Primary Dx)Start: 06-01-2024 End: 58-49-1092Lcyrau outpatient visit 15 minutesGildardo Lacy MD Work Phone: noms CWM FMComment on above: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); Unsteady gait; Tongue cancer (CMS/HCC); Chronic obstructive pulmonary disease, unspecified COPD type (CMS/HCC)Start: 06-01-2024 End: 30-62-7225ujikirobmqVXXZ NADERERNot AvailableStart: 05-26-2024 End: 03-71-2631UtzougOxtt Naderer MD Work Phone: noms CWM FMComment on above:DDD (degenerative disc disease), thoracicStart: 05-25-2024 End: 42-50-5039JxastjLvhw Naderer MD Work Phone: NOUE CWM FMComment on above:DDD (degenerative disc disease), thoracicStart: 05-24-2024 End: 47-99-0308Kafjuu flowsheetCassie PHAN Work Phone: noms FB ORTHOPAEDICSStart: 05-24-2024 End: 10-26-6876Pgvtvv flowsPavan PHAN Work Phone: noms FB ORTHOPAEDICSStart: 05-24-2024 End: 19-72-0860Psgbvs follow up visit related to original Allie PHAN Work Phone: noms FB ORTHOPAEDICSComment on above:S/P arthroscopy of right shoulder (Primary Dx); Internal derangement of shoulder, right; Arthralgia, unspecified jointStart: 05-24-2024 End: 24-30-7375zmbkiduxlrMWCMEPI J MEYERNot AvailableStart: 05-20-2024 End: 14-94-9376Jacfmdwzn Result EncounterMasofia PHAN Work Phone: noms External Department UnsolicitedStart: 05-20-2024 End: 65-69-8685Klvnpkoyo Result EncounterCassie PHAN Work Phone: noms External Department UnsolicitedStart: 05-12-2024 End: 72-62-4273Yoqyweqzp encounterCassie PHAN Work Phone: noms SWS ORTHOComment on above:OrderStart: 05-06-2024 End: 78-15-1007Iyuayl flowsPavan PHAN Work Phone: noms FB ORTHOPAEDICSStart: 05-06-2024 End: 22-96-6142Hcuswm flowsPavan PHAN Work Phone: noms FB ORTHOPAEDICSStart: 05-06-2024 End: 05-24-5259Hnjwzn follow up visit related to original Allie PHAN Work Phone: noms FB ORTHOPAEDICSComment on above:S/P arthroscopy of right shoulder (Primary Dx); Internal derangement of shoulder, rightStart: 05-06-2024 End: 44-61-4653hnlkyicqiwZQROHWC Simone TATUMNot AvailableStart: 04-28-2024 End: 48-88-0783Royhyocka Result EncounterGildardo Lacy MD Work Phone: noms External Department UnsolicitedStart: 04-28-2024 End: 90-42-2760Gflqwzoel Result EncounterGildardo Lacy MD Work Phone: noms External Department UnsolicitedStart: 04-21-2024 End: 62-06-2506GueulsDfxa Naderer MD Work Phone: noms CWM FMComment on above:DDD (degenerative disc disease), thoracicStart: 04-12-2024 End: 94-55-4388Zpvrgt Barbara Lacy MD Work Phone: NOXK CWM FMStart: 04-12-2024 End: 30-20-4665Huqrub Barbara Lacy MD Work Phone: noms CWM FMStart: 04-12-2024 End: 96-90-2455Zvobtrg encounter procedureGildardo Lacy MD Work Phone: [facility] Work Phone: Start: 04-12-2024 End: 54-69-8543Hlyjwz follow up visit related to original Raffi Lacy MD Work Phone: NOMS CWM FMComment on above:Medicare annual wellness visit, subsequent (Primary Dx); Left foot painStart: 04-12-2024 End: 04-76-4000tmlxvsslluFQRG NADERERNot AvailableStart: 04-04-2024 End: 92-35-8330UmjpqmDepassb Kal [facility] Work Phone: [facility] PharmacyComment on above: Refill RequestStart: 03-29-2024 End: 83-31-2131FsicsrVefd Naderer MD Work Phone: NOMS CWM FMComment on above:Thoracic spondylosis; DDD (degenerative disc disease), thoracicStart: 03-23-2024 End: 13-53-7520Iedwmf Geo PHAN Work Phone: noms FB ORTHOPAEDICSStart: 03-23-2024 End: 22-43-9750Tusmtx Geo PHAN Work Phone: NOSP FB ORTHOPAEDICSStart: 03-23-2024 End: 87-97-6913Cqwyzf follow up visit related to original Allie PHAN Work Phone: noms FB ORTHOPAEDICSComment on above:S/P arthroscopy of right shoulder (Primary Dx)Start: 03-23-2024 End: 76-96-2975oiyjucqobgZATWGGK J MEYERNot AvailableStart: 03-01-2024 End: 58-78-0464LpuwysIugh Naderer MD Work Phone: NOMS CWM FMComment on above:DDD (degenerative disc disease), thoracicStart: 02-29-2024 End: 19-91-8588Ikmfer Barbara Lacy MD Work Phone: NOMS CWM FMStart: 02-29-2024 End: 94-65-7929Pfxvpwleni Lacy MD Work Phone: NOMS CWM FMStart: 02-29-2024 End: 56-65-6982Yzlvvh outpatient visit 15 minutesGildardo Lacy MD Work Phone: noms CWM FMComment on above:Chronic obstructive pulmonary disease, unspecified COPD type (CMS/HCC) (Primary Dx); Need for immunization against influenzaStart: 02-29-2024 End: 71-87-6336fkqldtgqyjAHBV NADERERNot AvailableStart: 02-23-2024 End: 47-59-8453Zhprix flowsPavan PHAN Work Phone: noms FB ORTHOPAEDICSStart: 02-23-2024 End: 03-46-8571Pdtnqd Geo PHAN Work Phone: noms FB ORTHOPAEDICSStart: 02-23-2024 End: 12-48-0662Brbgwl follow up visit related to original Allie PHAN Work Phone: noms FB ORTHOPAEDICSComment on above:S/P arthroscopy of right shoulder (Primary Dx)Start: 02-23-2024 End: 81-66-7103lmzxxfkwneOBCBGXG J MEYERNot AvailableStart: 02-22-2024 End: 44-16-9176TpgmilGdqz Naderer MD Work Phone: noms CWM FMComment on above:Primary insomniaStart: 02-08-2024 End: 78-85-4946Vecegpqkr encounterJesse George NP Work Phone: noms FB ORTHOPAEDICSStart: 02-04-2024 End: 41-64-7704Ckswbhxbc Result EncounterMasofia PHAN Work Phone: noms External Department UnsolicitedStart: 02-04-2024 End: 28-52-0195Vejvrphht Result EncounterCassie PHAN Work Phone: noms External Department UnsolicitedStart: 02-02-2024 End: 79-39-1245Vhqsbm flowsPavan PHAN Work Phone: noms FB ORTHOPAEDICSStart: 02-02-2024 End: 28-48-3573Frbjkr flowsheetMasofia PHAN Work Phone: noms FB ORTHOPAEDICSStart: 02-02-2024 End: 69-76-2284pxsvmwabmeMVZBKKR J MEYERNot AvailableStart: 02-02-2024 End: 65-19-3125Kaprixn encounter procedureMasofia PHAN Work Phone: noms FB ORTHOPAEDICSComment on above:Preop examination (Primary Dx)Start: 02-02-2024 End: 99-16-4429Bppksdpibiinn examination doneCassie PHAN Work Phone: noms HealthcareStart: 01-11-2024 End: 61-75-1222Gnhrfiklt encounterJr. Martin Chen DO Work Phone: noms FB ORTHOPAEDICSStart: 01-05-2024 End: 10-79-7249TiicunQgiu Naderer MD Work Phone: noms CWM FMComment on above:DDD (degenerative disc disease), thoracicStart: 12-31-2023 End: 38-76-3448GqjcfaLfxousv LykinsNOMS CWM FMComment on above:DDD (degenerative disc disease), thoracicStart: 12-28-2023 End: 91-37-7645Mrommx flowsheetJr. Martin Chen DO Work Phone: noms FB ORTHOPAEDICSStart: 12-28-2023 End: 14-30-7144Xkwmaz flowsheetJr. Martin Chen DO Work Phone: noms FB ORTHOPAEDICSStart: 12-28-2023 End: 06-55-9413Gneagd outpatient visit 25 minutesJr. 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); Severe protein-calorie malnutrition (HCC)Start: 12-22-2023 End: 21-57-8789Dwujivu encounter procedureG Сергей Carpenter MD Work Phone: Radiation OncologyComment on above:Head and neck cancer (HCC) (Primary Dx); History of radiation therapyStart: 12-22-2023 End: 38-43-9779Qijufdwpb Result EncounterGeneric External Data ProviderNOMS External Department UnsolicitedStart: 12-22-2023 End: 23-47-2746Qlvwigvzf Result EncounterGeneric External Data ProviderNOMS External Department UnsolicitedStart: 12-15-2023 End: 25-34-5776Unfqrunuq Result EncounterGeneric External Data ProviderNOMS External Department UnsolicitedStart: 12-15-2023 End: 69-82-5188Ngnvbfyhy Result EncounterGeneric External Data ProviderNOMS External Department UnsolicitedStart: 12-15-2023 End: 48-12-2219Nqzzdefvxv hospital visit by physicianArrival Time Radiology Work Phone: Radiology Pet CTComment on above:Cancer of base of tongue (HCC) [C01]Start: 11-17-2023 End: 89-15-0637Nzeunv outpatient visit 25 minutesCarmen Neely MD Work Phone: [facility] HospitalComment on above:PVD (peripheral vascular disease) ([facility]-HCC); Hyperlipidemia, unspecified hyperlipidemia type; TIA (transient ischemic attack); BMI less than 19,adult; Current smokerStart: 11-17-2023 End: 96-14-2364hdznosgxmsWIRVWH M IBRThe [facility] at [facility] AmbulatoryStart: 11-02-2023 End: 00-44-6013Wniqhjbck department patient visitOhioHealth Hardin Memorial Hospitaltart: 09-08-2023 End: 10-99-3165Zhwsowc encounter procedureMD Gildardo Lacy Work Phone: [facility] [place] Work Phone: Start: 09-08-2023 End: 34-20-6744mpujntaahdGD Gildardo Reggie Work Phone: [facility] Work Phone: Start: 08-18-2023 End: 68-72-0036Drcnsoynp therapyEsdras Cash MD Work Phone: Hematology/OncologyComment on above: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); Malaise and fatigue; Chronic obstructive pulmonary disease, unspecified COPD type (HCC); Severe protein-calorie malnutrition (HCC); Cancer related painStart: 08-18-2023 End: 10-74-5179Mmpwumd encounter procedureEsdras Cash MD Work Phone: SANDUSKYComment on above:Head and neck cancer (HCC) (Primary Dx); History of radiation therapyStart: 07-01-2023 End: 87-76-3587Gfdxzxqyl Result EncounterGildardo Lacy MD Work Phone: noms External Department UnsolicitedStart: 07-01-2023 End: 58-29-9594Rjpypfvth Result EncounterGildardo Lacy MD Work Phone: noms External Department UnsolicitedStart: 06-19-2023 RefillEsdras Cash MD Work Phone: Hematology/OncologyComment on above:Refill Request Start: 05-06-2023 End: 38-55-7179Wcvjfm outpatient visit 25 minutesCarmen Neely MD Work Phone: [facility] HospitalComment on above:PVD (peripheral vascular disease) (CMS/HCC) (Primary Dx); Abnormal EKG; TIA (transient ischemic attack); Current smoker; Hyperlipidemia, unspecified hyperlipidemia type; Pulmonary emphysema, unspecified emphysema type (CMS/HCC)Start: 77-20-8327Pgksig Esdras Cash MD Work Phone: Hematology/OncologyComment on above:Refill Request Start: 67-26-5612Folhmmjnl encounterDomxochilt Lorenz RNHematology/OncologyStart: 05-82-0144IgydonJfafeAmarilis Biggs APRN.SPOTTER Work Phone: Hematology/OncologyComment on above:Refill Request Start: 02-11-2023 End: 98-87-5968Uxcyudcjgq hospital visit by physicianArrival Time Radiology Work Phone: Radiology Pet CTStart: 01-27-2023 End: 53-56-9175Uqicuta encounter procedureG Сергей Carpenter MD Work Phone: Radiation OncologyComment on above:Oropharnyx cancer (HCC) (Primary Dx); Severe protein-calorie malnutrition (HCC); Chronic obstructive pulmonary disease, unspecified COPD type (HCC)Start: 93-82-7652CfrdmmReilq R Murphy MD Work Phone: Hematology/OncologyComment on above:Refill Request Start: 09-10-2022 End: 25-68-7879Ttuyquxyre hospital visit by physicianArrival Time Radiology Work Phone: Radiology Pet CTComment on above: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 Gildardo Lacy Facility:[id number]: 05-20-2022 End: 89-75-2415oiodwhyoyqVfnnz R Murphy MD Work Phone: Hematology/OncologyComment on above: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)Start: 05-20-2022 End: 13-43-0290Xkupjyf encounter procedureEsdras Cash MD Work Phone: SANDUSKYStart: 04-17-2022 End: 52-18-3168Ontofvv encounter procedureG Сергей Carpenter MD Work Phone: Radiation OncologyComment on above: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)Start: 04-15-2022 End: 48-29-5919hemtzskilhKZ STEVEN R ZIEBERFacility:M5Wswsg: 04-14-2022 End: 47-97-9788Fsdlwuwtoe hospital visit by physicianArrival Time Radiology Work Phone: Radiology Pet CTComment on above: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]Start: 02-25-2022 End: 63-24-3820Fyiholr encounter procedureG Сергей Carpenter MD Work Phone: Radiation OncologyComment on above:Oropharnyx cancer (HCC) (Primary Dx)Start: 02-18-2022 End: 55-32-3790vvvvifzdunNajwt R Murphy MD Work Phone: Hematology/OncologyComment on above: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); Cancer related pain; Need for influenza vaccinationStart: 02-18-2022 End: 51-35-6592Cxzgfaa encounter Jordi Cash MD Work Phone: SANDUSKYStart: 02-06-2022 End: 12-20-3119encfrcigfxLD MARC A NADERERFacility:F7Bjgct: 02-04-2022 End: 38-95-0393kaukomcqdaXD STEVEN R ZIEBERFacility:X4Itnmk: 14-95-9275Kpnyd Holli Lacy Work Phone: [phone]-AdpmsAmber [place]ille [address] DO Work Phone: Start: 50-99-1959Sltxfxz encounter procedureMarjavid Lacy Work Phone: [phone]-AlafwJoseph Ville [address]A [place] Work Phone: Start: 79-25-9509cypzpoimgnTg. 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 Gildardo Lacy Facility:[id number]: 82-62-4602UlexifHpslhAmarilis Biggs APRN.CNP Work Phone: Radiation OncologyComment on above:Refill Request Start: 11-25-2021 End: 51-34-4973nkaxvxiskcQR DOCTOR MISCFacility:Q7Wward: 11-21-2021 End: 56-38-0898Wwbuczl encounter procedureG Сергей Carpenter MD Work Phone: Radiation OncologyComment on above:Oropharnyx cancer (HCC) (Primary Dx)Start: 11-20-2021 End: 20-17-7500mkoqfifkdxUT GILDARDO SHAIKHERERFacility:Q0Ccugo: 10-04-2021 End: 73-63-1835yyqubpekgzIantwfgbgl Kaetzel RD Work Phone: sANDUSKYStart: 10-04-2021 End: 44-37-1270Daikmqqvf therapyJackristen Wilhelm RD Work Phone: Nutrition TherapyComment on above:Nutrition Telephone Start: 10-03-2021 End: 68-17-0250Xwdzoijiz therapyEsdras Cash MD Work Phone: Hematology/OncologyComment on above:Oropharnyx cancer (HCC) (Primary Dx); Malaise and fatigue; Severe protein-calorie malnutrition (HCC)Start: 10-03-2021 End: 18-35-6087Xujoufb encounter Jordi Cash MD Work Phone: SANDUSKYStart: 65-09-7728Juhnoyd encounter procedureKathrine Carpenter MD Work Phone: SANDUSKYStart: 79-11-5715Rnxilkpaq Oncology NoteG Сергей Carpenter MD Work Phone: Radiation OncologyComment on above:Completion Note Start: 09-25-2021 End: 41-66-7763hbrmcrzuywExzzzejran Kaetzel RD Work Phone: sANDUSKYStart: 09-25-2021 End: 00-43-9129Wbcwaapyy therapyJalevi Wilhelm RD Work Phone: Nutrition TherapyComment on above:Nutrition Counseling Start: 69-82-5380Djyiwtxrz encounterCynthia Cutler RN Work Phone: Hematology/OncologyComment on above:Care Coordination (Discharge Follow Up)Start: 09-23-2021 End: 12-24-6074sstxgclttjDpfqe R Murphy MD Work Phone: Hematology/OncologyComment on above:Oropharnyx cancer (HCC) (Primary Dx)Start: 09-23-2021 End: 12-95-1485Hpkjubq encounter Jordi Cash MD Work Phone: SANDUSKYStart: 53-30-9948Rsmtnutds encounterResofia Cutler RN Work Phone: Hematology/OncologyComment on above:Care Coordination (Hospital Admission)Start: 09-19-2021 End: 72-44-1337Qpwzmmakib and management of inpatientMARC NADERERFacility:[facility] Start: 14-88-3746Kiygcftgr encounterCynthia Cutler RN Work Phone: Hematology/OncologyComment on above:Care Coordination (Pt Update)Start: 53-75-3870Wgmhzzerd encounterKathrine Carpenter MD Work Phone: Radiation OncologyComment on above:Nausea (Radiation Cancelled)Start: 00-53-5956Ayqwjirxy encounterAmira Powell LSWHematology/Oncology Comment on above:Social Work Services (Gas card program)Care Coordination (Xray) Start: 09-16-2021 End: 02-74-6475jlglfvewraTcect [address] [place] Work Phone: Hematology/OncologyComment on above:Nausea (Primary Dx); Lower abdominal pain; Cancer of base of tongue (HCC)Lower abdominal pain (Primary Dx); Cancer of base of tongue (HCC); NauseaStart: 09-16-2021 End: 56-60-6448Vyaefcf encounter procedureMinjerome Weaver PA-C Work Phone: SANDUSKYComment on above: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)Start: 08-10-8804Llsbjodyn encounterEsdras Cash MD Work Phone: Hematology/OncologyComment on above:Patient Update (neuropathy)Start: 09-09-2021 End: 95-31-2522yzsousghvgRdebkyfbvt Kaetzel RD Work Phone: sANDUSKYStart: 09-09-2021 End: 16-62-4696Lzkbfizga therapyRylee Wilhelm RD Work Phone: Nutrition TherapyComment on above:Nutrition Counseling 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); Severe protein-calorie malnutrition (HCC)Start: 09-09-2021 End: 67-45-7386Plfzwlf encounter procedureKathrine Carpenter MD Work Phone: Radiation OncologyComment on above: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)Start: 09-02-2021 End: 58-54-2291lqajsncdxmAerdu M Musser PA-C Work Phone: Hematology/OncologyComment on above: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)Start: 09-02-2021 End: 51-17-0727Fokhoeh encounter procedureAnthony Weaver PA-C Work Phone: SANDUSKYStart: 08-26-2021 End: 73-97-3160Iszkjji encounter procedureG Сергей Carpenter MD Work Phone: Radiation OncologyComment on above: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)Start: 08-26-2021 End: 95-95-8902mimbdczpwcQathkjmodt Kaetzel RD Work Phone: sANDUSKYStart: 08-26-2021 End: 55-66-0360Pmaturuxa therapyJalevi Wilhelm RD Work Phone: Nutrition TherapyComment on above:Nutrition Assessment Oropharnyx cancer (HCC) (Primary Dx); Cancer of base of tongue (HCC); Oropharyngeal dysphagia; Chronic obstructive pulmonary disease, unspecified COPD type (HCC); Heart disease; Cancer related pain; Anxiety and depression; Severe protein-calorie malnutrition (HCC); Malaise and fatigue; Hypertension, unspecified type; TachycardiaStart: 08-19-2021 End: 48-11-1029bwqrkuibigBmgacpuzfk Kaetzel RD Work Phone: sANDUSKYComment on above: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)Start: 08-19-2021 End: 41-92-5996Knmonponz therapyNathaly Biggs APRN.CNP Work Phone: Hematology/OncologyComment on above:Oropharnyx cancer (HCC) (Primary Dx); Cancer of base of tongue (HCC); Oropharyngeal dysphagia; Chronic obstructive pulmonary disease, unspecified COPD type (HCC); Heart disease; Cancer related pain; Anxiety and depression; Severe protein-calorie malnutrition (HCC); Malaise and fatigue; Hypertension, unspecified type; TachycardiaNutrition CounselingStart: 08-19-2021 End: 12-69-8110Nkguybm encounter procedureNathaly Biggs APRN.CNP Work Phone: SANDUSKYComment on above: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)Start: 95-86-4709Vmbyeoowb encounterCynthia Cutler RN Work Phone: Hematology/OncologyComment on above:Care Coordination (C1D1 Post Treatment Call)Start: 71-90-2688Qlbbrxgzq encounterCynthia Cutler RN Work Phone: Hematology/OncologyComment on above:Care Coordination (Education Material)Start: 08-12-2021 End: 52-44-6335chgtfpbyccTbewh [address] [place] Work Phone: Hematology/OncologyComment on above: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)Oropharnyx cancer (HCC) (Primary Dx)Start: 08-12-2021 End: 61-83-1268Ipfzadm encounter procedureEsdras Cash MD Work Phone: SANDUSKYStart: 08-12-2021 End: 30-35-0599Yzwmzrh encounter procedureKathrine Carpenter MD Work Phone: Radiation OncologyComment on above: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)Start: 08-09-2021 End: 53-95-0714wghblfhbzuBlkwuby Troyer PT, DPT Work Phone: [place] Physical TherapyComment on above:Physical deconditioning (Primary Dx); Current smokerStart: 96-87-7503uccxhjjkhrKsqnpmc Sessler RN Work Phone: Hematology/OncologyComment on above:Chemotherapy Treatment (Carboplatin)Start: 64-03-1967Tajvisx encounter procedureCcf Provider [facility] DepartmentStart: 34-08-9817Oqocuogmu encounterCynthia Cutler RN Work Phone: Hematology/OncologyComment on above:Care Coordination (Antiemetics)Start: 08-01-2021 End: 39-13-1979ssbdazedjkOooan R Murphy MD Work Phone: Hematology/OncologyComment on above: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); Malaise and fatigueStart: 08-01-2021 End: 56-46-7598ookpzlihbjVlmaooedjk Kaetzel RD Work Phone: sANDUSKYStart: 08-01-2021 End: 22-11-7335Voadyovav therapyJackristen Wilhelm RD Work Phone: Nutrition TherapyComment on above:Nutrition Assessment Start: 08-01-2021 End: 48-93-9228Jtwxrhb encounter procedureEsdras Cash MD Work Phone: SANDUSKYStart: 67-30-4459Gzhsriegr Oncology NoteG Сергей Carpenter MD Work Phone: Radiation OncologyComment on above:Simulation Note Treatment PlanningStart: 08-01-2021 End: 06-81-1711Yewhfhivio hospital visit by physicianKathrine Carpenter MD Work Phone: Radiology Pet CTStart: 07-30-2021 End: 90-67-8761IqpytvFjixq R Murphy MD Work Phone: Radiation OncologyComment on above:Refill Request Oropharnyx cancer (HCC) (Primary Dx)Start: 05-28-2021 End: 68-45-9723Zgbdtxmymj and management of inpatientJEFFERY KATKOFacility:[facility] Start: 04-05-2021 End: 12-54-2376Lsbmxhqsub hospital visit by physicianArrival Time Radiology Work Phone: Radiology Pet CTComment on above:Malignant neoplasm of head, face and neck (HCC) [C76.0]Start: 02-16-2018 End: 52-84-1954Lsuhutm encounter procedureKamaldeen O AgoroFacility:[facility] Hospitaltart: 02-16-2018 End: 17-09-1068Onucxnr encounter procedureKAMALDEEN O AGOROSaint BetzaidaSheridan Memorial Hospital CenterStart: 01-19-2018 End: 80-44-6420Jofwvnvgfu and management of inpatientRATUL RAYZANDERUDYAMILETHRIMerchuy [facility] Procedures DateProcedureProcedure DetailPerforming ClinicianStart: 47-83-3841FEL TSH W/REFLEX HT0Tnlftji External Data ProviderStart: 47-15-9264Epesy of thyroid stimulating hormone tshG Сергей Carpenter MD Work Phone: Start: 44-16-7602VHYIW CULTURE 2Generic External Data ProviderStart: 54-71-1450TDWMN CULTURE 1Generic External Data ProviderStart: 18-79-3872Mo upper extremity w/o contrast materialGeneric External Data Provider Start: 58-88-0417Cmxtw shoulder complete minimum 2 viewsHebert Miguel MD Work Phone: Start: 75-32-4344Zek any jt upper extremity w/o contrast matrlMatthew Simone PHAN Work Phone: Start: 74-73-0757RR FOOT LT 2 VWSMarc Reggie VO Work Phone: Start: 23-13-3857XMT 12-LEADMatthew Simone PHAN Work Phone: Start: 81-38-4303Yzs any jt upper extremity w/o contrast matrlGeneric External Data ProviderStart: 49-45-4532WE PET/CT SKULL- THIGH SUBQGeneric External Data ProviderStart: 71-58-6249Ngl imaging ct attenuation skull base mid-thighEsdras Cash MD Work Phone: Start: 12-15-2023 End: 52-76-1604Gtkuy count complete auto&auto difrntl wbcEsdras Cash MD Work Phone: Start: 24-94-8722Xdh routine ecg w/least 12 lds w/i&r Carmen Neely MD Work Phone: Start: 62-97-5823Ogqdk 1996 panel - Serum or PlasmaNA Ron VO Work Phone: Start: 02-29-5499XBINFJOAP BLOOD PRESSUREVeterans Health Administration [facility] [place] Reggie VO Work Phone: Start: 52-41-5828Otbgsn scan extracranial art compl bi studyMar Reggie VO Work Phone: Start: 68-66-6351Yxx imaging ct attenuation skull base mid-thighEsdras Cash MD Work Phone: Start: 25-40-1884Bpop bld gluc mntr dev cleared fda spec home useCcf ProviderStart: 12-69-8462Bv thorax w/contrast materialG Сергей Carpenter MD Work Phone: Start: 76-00-2675Sk soft tissue neck w/o contrast materialG Сергей Carpenter MD Work Phone: Start: 15-30-5339Ek thorax w/contrast materialG Сергей Carpenter MD Work Phone: Start: 70-67-5545Mv soft tissue neck w/contrast materialG Сергей Carpenter MD Work Phone: Start: 86-03-6575ZPVYKPPJGC BLDG Сергей Carpenter MD Work Phone: Start: 96-31-0303SeasyocchdsncxlgPvzs A Naderer Work Phone: Start: 65-92-6052Kyi imaging ct attenuation skull base mid-thighG Сергей Carpenter MD Work Phone: Start: 38-81-0577Lzzw bld gluc mntr dev cleared fda spec home useCcf ProviderStart: 83-92-0163Rnixp count complete auto&auto difrntl wbcMinjerome Weaver PA-C Work Phone: Start: 57-86-6426Sacpd count complete auto&auto difrntl wbcHolandrew Biggs APRN.SPOTTER Work Phone: Start: 31-29-5674Tlo imaging ct attenuation skull base mid-thighG Сергей Carpenter MD Work Phone: Start: 53-30-7057Tygj bld gluc mntr dev cleared fda spec home useCcf ProviderStart: 76-29-0899KdmmfmdvsevTk. Stepanic DO Work Phone: Start: 51-09-8552Nlawzedztw funcj w/cineradiograpy/vidradiogKAMALDEEN AGOROStart: 21-24-4984Pjmtbbxiot exam chest single viewKAARLEYDEEN AGOROStart: 67-65-3983Lvnuwiszrw exam abdomen 1 view ENOCALDEEN AGOROStart: 58-99-5679IXQA GLUCOSERATUL RAYCHAUDHURIStart: 02-15-2018 MECHANICAL VENTILATIONRATUL RAYCHAUDHURIStart: 49-38-0406KNANYZKIZ TX INTERMITTENTRATUL RAYCHAUDHURIStart: 12-15-5300THINQWMRZV VENTILATIONRATUL RAYCHAUDHURIStart: 37-75-7464Hwzrr metabolic panel calcium totalRATUL RAYCHAUDHURIStart: 36-68-8445Kwpjr count complete automatedRATUL RAYCHAUDHURI Start: 74-93-4873NTD GLUCOSE FINGERSTICKRATUL RAYCHAUDHURIStart: 88-30-3990JUKF GLUCOSERATUL RAYCHAUDHURIStart: 48-22-8602HWNYFOXNJ PATIENTRATUL RAYCHAUDHURI Start: 86-84-6433ROASDSXNP TX INTERMITTENTRATUL RAYCHAUDHURIStart: 05-23-8343KPZ GLUCOSE FINGERSTICKRATUL RAYCHAUDHURIStart: 44-76-1815SWBE GLUCOSERATUL RAYCHAUDHURIStart: 42-17-5270ODJ TIDAL CO2 CONTINUOUSRATUL RAYCHAUDHURIStart: 32-10-6958CTZMJYUE OXYGEN THERAPY PROTOCOLRATUL RAYCHAUDHURIStart: 02-15-2018 NEBULIZER TX INTERMITTENTRATUL RAYCHAUDHURIStart: 93-88-6093Phuwh of magnesium RATUL RAYCHAUDHURIStart: 39-88-3209Gkirj of phosphorus inorganicRATUL RAYCHAUDHURIStart: 31-95-5613Xmjob metabolic panel calcium totalRATUL RAYCHAUDHURIStart: 32-32-9690Cjffq count complete automatedRATUL RAYCHAUDHURI Start: 39-65-9816OZXA GLUCOSERATUL RAYCHAUDHURIStart: 35-36-3187JLQPRZTVV TX INTERMITTENTRATUL RAYCHAUDHURIStart: 91-80-4255WSR GLUCOSE FINGERSTICKRATUL RAYCHAUDHURIStart: 02-10-4071NWQGA CARERATUL RAYCHAUDHURIStart: 02-15-2018 Radiologic exam chest single viewRATUL RAYCHAUDHURIStart: 36-63-3211AWZW GLUCOSE RATUL RAYCHAUDHURIStart: 00-67-1956JOYIUZMNP TX INTERMITTENTRATUL RAYCHAUDHURI Start: 09-39-3475YYR GLUCOSE FINGERSTICKRATUL RAYCHAUDHURIStart: 53-26-7842MPQX GLUCOSERATUL RAYCHAUDHURIStart: 79-01-4885GTBPLDFNC TX INTERMITTENTRATUL RAYCHAUDHURIStart: 57-38-6113EGWLINIM PATIENTRATUL RAYCHAUDHURIStart: 02-14-2018 POCT GLUCOSERATUL RAYCHAUDHURIStart: 32-93-1640Qr retroperitoneal real time w/image limitedRATUL RAYCHAUDHURIStart: 07-75-9859JND TIDAL CO2 CONTINUOUSRATUL RAYCHAUDHURIStart: 84-69-0658WYSPAJAO OXYGEN THERAPY PROTOCOLRATUL RAYCHAUDHURI Start: 98-05-1493RYTROWIFD TX INTERMITTENTRATUL RAYCHAUDHURIStart: 02-14-2018 Radiologic exam chest single viewRATUL RAYCHAUDHURIStart: 38-27-7661Hjdov metabolic panel calcium totalRATUL RAYCHAUDHURIStart: 01-26-2069Fuenw count complete automatedRATUL RAYCHAUDHURIStart: 40-75-2090YYFG GLUCOSERATUL RAYCHAUDHURIStart: 66-67-0919JSHHCYUQC TX INTERMITTENTRATUL RAYCHAUDHURIStart: 67-95-9339ILJWSGVRFH NON-VIOLENT OR PFK-IEMU-GYNSKLQVMLOTYKCQ RAYCHAUDHURIStart: 04-66-2343JSAI GLUCOSERATUL RAYCHAUDHURIStart: 72-32-4939VBGKODNDA TX INTERMITTENTRATUL RAYCHAUDHURIStart: 20-57-0011MHVZ GLUCOSERATUL RAYCHAUDHURI Start: 05-16-4823YULRDIK BLOOD #1RATUL RAYCHAUDHURIStart: 81-06-8670KODBNKQIL TX INTERMITTENTRATUL RAYCHAUDHURIStart: 62-16-9196Qo abdomen & pelvis w/o contrast materialRATUL RAYCHAUDHURIStart: 49-05-0295OSXF GLUCOSERATUL RAYCHAUDHURIStart: 46-67-2051RQS TIDAL CO2 CONTINUOUSRATUL RAYCHAUDHURIStart: 58-31-7374QWACNBUA OXYGEN THERAPY PROTOCOLRATUL RAYCHAUDHURIStart: 13-84-6724OTCETRAAJ TX INTERMITTENTRATUL RAYCHAUDHURIStart: 72-64-3377Dqqakpjxdh exam abdomen 1 view RATUL RAYCHAUDHURIStart: 21-95-6154Pnyhh metabolic panel calcium totalRATUL RAYCHAUDHURIStart: 87-74-4242Nmtge count complete automatedRATUL RAYCHAUDHURI Start: 06-98-5509DEFFP NATRIURETIC PEPTIDERATUL RAYCHAUDHURIStart: 02-13-2018 POCT GLUCOSERATUL RAYCHAUDHURIStart: 23-73-3501YKSJMRINR TX INTERMITTENTRATUL RAYCHAUDHURIStart: 23-93-2634BFHQ GLUCOSERATUL RAYCHAUDHURIStart: 02-12-2018 NEBULIZER TX INTERMITTENTRATUL RAYCHAUDHURIStart: 70-63-2045WCZK GLUCOSERATUL RAYCHAUDHURIStart: 66-02-6142ITNFPYPFT TX INTERMITTENTRATUL RAYCHAUDHURIStart: 31-89-0300HUZVAEYC BLOOD GAS, POCRATUL RAYCHAUDHURIStart: 29-30-2170PRUQ GLUCOSE RATUL RAYCHAUDHURIStart: 48-55-5319WWJ TIDAL CO2 CONTINUOUSRATUL RAYCHAUDHURI Start: 35-71-8846SIFJATFD OXYGEN THERAPY PROTOCOLRATUL RAYCHAUDHURIStart: 57-11-1525TMXIXZMKU TX INTERMITTENTRATUL RAYCHAUDHURIStart: 59-46-7736Gidxakcvuh exam chest single viewRATUL RAYCHAUDHURIStart: 75-12-5823AUV DRAWRATUL RAYCHAUDHURIStart: 41-06-9292HAPPYNVROQXUF NURSING CARE ORDER (SPECIFY)RATUL RAYCHAUDHURIStart: 96-21-7862Krfcv of magnesiumRATUL RAYCHAUDHURIStart: 26-98-0546Lgtvy of phosphorus inorganicRATUL RAYCHAUDHURIStart: 91-86-4779Sfxfp metabolic panel calcium totalRATUL RAYCHAUDHURIStart: 27-70-3901Rcvxo count complete automatedRATUL RAYCHAUDHURIStart: 64-99-9510AWSQE NATRIURETIC PEPTIDE RATUL RAYCHAUDHURIStart: 19-84-2522AKLM GLUCOSERATUL RAYCHAUDHURIStart: 05-73-6585HUDADXIQZ TX INTERMITTENTRATUL RAYCHAUDHURIStart: 46-98-7726EGYKL CARE RATUL RAYCHAUDHURIStart: 12-67-3746PTUO GLUCOSERATUL RAYCHAUDHURIStart: 26-38-7127XNKQKEUZO TX INTERMITTENTRATUL RAYCHAUDHURIStart: 08-48-8943IQKX GLUCOSERATUL RAYCHAUDHURIStart: 68-49-6129JDLMBYVGX TX INTERMITTENTRATUL RAYCHAUDHURIStart: 47-47-3131KPHD GLUCOSERATUL RAYCHAUDHURIStart: 35-51-9381DAR TIDAL CO2 CONTINUOUSRATUL RAYCHAUDHURIStart: 65-32-1703LKNZJUFY OXYGEN THERAPY PROTOCOLRATUL RAYCHAUDHURIStart: 00-82-8043JSSJFSZHJ TX INTERMITTENTRATUL RAYCHAUDHURIStart: 91-75-1789FRJDDLLORZ NON-VIOLENT OR ANM-UVJN-MNYOYPZDIPZZKASE RAYCHAUDHURIStart: 13-69-3795Erfnv of triglyceridesRATUL RAYCHAUDHURIStart: 51-03-6601Ivokl metabolic panel calcium totalRATUL RAYCHAUDHURIStart: 02-11-2018 Blood count complete automatedRATUL RAYCHAUDHURIStart: 39-87-1955YYDPA NATRIURETIC PEPTIDERATUL RAYCHAUDHURIStart: 83-38-2377BZZK GLUCOSERATUL RAYCHAUDHURIStart: 66-08-7007MGWJICJLL TX INTERMITTENTRATUL RAYCHAUDHURIStart: 14-46-0383ARZVFGU BLOOD #1RATUL RAYCHAUDHURIStart: 93-01-1741BJJL GLUCOSERATUL RAYCHAUDHURIStart: 94-81-1870YFNGBOZFZ TX INTERMITTENTRATUL RAYCHAUDHURIStart: 27-65-5761RAULXSAWJPDHE NURSING CARE ORDER (SPECIFY)RATUL RAYCHAUDHURIStart: 07-99-2164NAQY GLUCOSERATUL RAYCHAUDHURIStart: 77-33-7013Vkwmxxoxte exam abdomen 1 viewRATUL RAYCHAUDHURIStart: 76-59-1022UDXSTEUWR TX INTERMITTENTRATUL RAYCHAUDHURIStart: 51-78-1064Ivwxgrxmxaw blood/blood componentsRATUL RAYCHAUDHURIStart: 35-36-1760JWAI GLUCOSERATUL RAYCHAUDHURIStart: 51-93-4654FVD TIDAL CO2 CONTINUOUSRATUL RAYCHAUDHURIStart: 60-82-7284TEEQQUJM OXYGEN THERAPY PROTOCOLRATUL RAYCHAUDHURIStart: 11-05-3934DYWPLCACX TX INTERMITTENTRATUL RAYCHAUDHURIStart: 54-57-4864Rmpyj metabolic panel calcium totalRATUL RAYCHAUDHURIStart: 84-14-4344NEDWP NATRIURETIC PEPTIDERATUL RAYCHAUDHURIStart: 89-69-5884GGICQVOW SPECIMENRATUL RAYCHAUDHURIStart: 95-02-8845XPIUKFZU RT PROTOCOLRATUL RAYCHAUDHURIStart: 21-81-7242Xfmdl count complete automatedRATUL RAYCHAUDHURIStart: 02-38-4694Kakx tst prsmv instrmnt chem analyzers pr dateRATUL RAYCHAUDHURIStart: 43-97-9584TAXQ GLUCOSERATUL RAYCHAUDHURIStart: 02-10-2018 NEBULIZER TX INTERMITTENTRATUL RAYCHAUDHURIStart: 22-26-9724UISBW CARERATUL RAYCHAUDHURIStart: 54-26-8438TRQD GLUCOSERATUL RAYCHAUDHURIStart: 02-09-2018 NEBULIZER TX INTERMITTENTRATUL RAYCHAUDHURIStart: 75-79-3242GSO 12-LEADRATUL RAYCHAUDHURIStart: 63-75-3259RRK REPORTRATUL RAYCHAUDHURIStart: 51-40-7355DXPS GLUCOSERATUL RAYCHAUDHURIStart: 98-45-9263LNMBDTTNPZ NON-VIOLENT OR NBX-OFHD-WYQBVTRWPNWDBKUN RAYCHAUDHURIStart: 92-80-8273YKYDFYELO TX INTERMITTENT RATUL RAYCHAUDHURIStart: 11-80-1692KLBIFXPJ BLOOD GAS, POCRATUL RAYCHAUDHURI Start: 97-46-7004PJLO GLUCOSERATUL RAYCHAUDHURIStart: 46-07-9386QMY TIDAL CO2 CONTINUOUSRATUL RAYCHAUDHURIStart: 43-27-7657QIGRGZFI OXYGEN THERAPY PROTOCOL RATUL RAYCHAUDHURIStart: 71-10-6798WCPMBLDQD TX INTERMITTENTRATUL RAYCHAUDHURI Start: 96-45-4525Fiahr metabolic panel calcium totalRATUL RAYCHAUDHURIStart: 80-12-0722Pajxe count complete automatedRATUL RAYCHAUDHURIStart: 54-65-6049ZZJUT NATRIURETIC PEPTIDERATUL RAYCHAUDHURIStart: 01-34-8933YRHS GLUCOSERATUL RAYCHAUDHURIStart: 30-94-0778GYYFDSXCG [place] INTERMITTENTRATUL RAYCHAUDHURIStart: 38-33-7021YXOG GLUCOSERATUL RAYCHAUDHURIStart: 76-40-6578RSCTRLKHU [place] INTERMITTENTRATUL RAYCHAUDHURIStart: 72-43-1630LYZTX CARERATUL RAYCHAUDHURI Start: 94-09-3168OIUC GLUCOSERATUL RAYCHAUDHURIStart: 12-10-9818ZPEBXJOBM [place] INTERMITTENTRATUL RAYCHAUDHURIStart: 03-28-6720[facility]-mode compl spec&colr dRATUL RAYCHAUDHURIStart: 79-49-3495YPOG GLUCOSERATUL RAYCHAUDHURIStart: 88-00-8924XLV TIDAL CO2 CONTINUOUSRATUL RAYCHAUDHURIStart: 94-31-1642KKRDLFAJ OXYGEN THERAPY PROTOCOLRATUL RAYCHAUDHURIStart: 02-08-2018 NEBULIZER [place] INTERMITTENTRATUL RAYCHAUDHURIStart: 04-52-3609MEVWBCQVHN NON- VIOLENT OR MLD-FDOR-ZHDKOGBSFTWRRESU RAYCHAUDHURIStart: 06-38-3288Diikf of magnesiumRATUL RAYCHAUDHURIStart: 07-48-1935Noyqo of phosphorus inorganicRATUL RAYCHAUDHURIStart: 43-87-3892Gizph metabolic panel calcium totalRATUL RAYCHAUDHURIStart: 62-06-7693Livrw count complete automatedRATUL RAYCHAUDHURI Start: 50-96-6189FPKUH NATRIURETIC PEPTIDERATUL RAYCHAUDHURIStart: 02-08-2018 ARTERIAL BLOOD GAS, POCRATUL RAYCHAUDHURIStart: 31-55-5794CAJE GLUCOSERATUL RAYCHAUDHURIStart: 24-49-6799YJZCGMIHI [place] INTERMITTENTRATUL RAYCHAUDHURIStart: 65-61-6559WCOZJ CARERATUL RAYCHAUDHURIStart: 30-36-8504MQCU GLUCOSERATUL RAYCHAUDHURIStart: 52-04-2387NMHIBVGII TX INTERMITTENTRATUL RAYCHAUDHURIStart: 79-81-3366UKPA GLUCOSERATUL RAYCHAUDHURIStart: 39-07-8513TYRKDDDJV TX INTERMITTENTRATUL RAYCHAUDHURIStart: 51-05-3258Dyszmkdsau exam chest single view RATUL RAYCHAUDHURIStart: 25-17-0663YNHL GLUCOSERATUL RAYCHAUDHURIStart: 50-69-8837ZEF TIDAL CO2 CONTINUOUSRATUL RAYCHAUDHURIStart: 11-78-8792VOYMISUW OXYGEN THERAPY PROTOCOLRATUL RAYCHAUDHURIStart: 28-41-1774HFOQUEUHW [place] INTERMITTENTRATUL RAYCHAUDHURIStart: 27-07-4534Kbldq metabolic panel calcium totalRATUL RAYCHAUDHURIStart: 27-15-3348Nkuay count complete automatedRATUL RAYCHAUDHURIStart: 71-14-0185LNXZJ NATRIURETIC PEPTIDERATUL RAYCHAUDHURIStart: 96-36-7820KWWOUOAS BLOOD GAS, POCRATUL RAYCHAUDHURIStart: 10-93-4247QJEO GLUCOSE RATUL RAYCHAUDHURIStart: 71-40-7492DVFVWGWIT [place] INTERMITTENTRATUL RAYCHAUDHURI Start: 31-88-7863WUUOMRURMF AND HEMATOCRIT, BLOODRATUL RAYCHAUDHURIStart: 23-48-6273Vhpkh of lactateRATUL RAYCHAUDHURIStart: 69-23-5022FYOY GLUCOSERATUL RAYCHAUDHURIStart: 04-01-0826IHZBMCALM [place] INTERMITTENTRATUL RAYCHAUDHURIStart: 75-59-8184XWXR GLUCOSERATUL RAYCHAUDHURIStart: 77-33-6379WJWTZGHAP [place] INTERMITTENTRATUL RAYCHAUDHURIStart: 20-82-4750RFOYLWMLJ RED BLOOD CELLSRATUL RAYCHAUDHURIStart: 27-40-0379Evuhp of lactateRATUL RAYCHAUDHURIStart: 02-06-2018 POCT GLUCOSERATUL RAYCHAUDHURIStart: 68-99-4658DGI TIDAL CO2 CONTINUOUSRATUL RAYCHAUDHURIStart: 14-21-0127YPSSFVCI OXYGEN THERAPY PROTOCOLRATUL RAYCHAUDHURI Start: 32-09-3645ZAVBVKJBJ TX INTERMITTENTRATUL RAYCHAUDHURIStart: 02-06-2018 Assay of amylaseRATUL RAYCHAUDHURIStart: 97-70-9340Szcek of lipaseRATUL RAYCHAUD[facility]URIStart: 45-43-7879Smvjt metabolic panel calcium totalRATUL RAYCHAUD[facility]URIStart: 47-53-5965Juhli count complete automatedRATUL [facility] Start: 70-70-5531KZFAJ NATRIURETIC PEPTIDERATUL RAYCHAUDHURIStart: 82-76-5999WJ RATUL RAYCHAUDHURIStart: 53-31-0993JUOWBQXNX, SERUMRATUL RAYCHAUDHURIStart: 91-09-3288YANLNUKJ BLOOD GAS, POCRATUL RAYCHAUDHURIStart: 21-31-6670GDUQ GLUCOSE RATUL [facility]: 87-20-8780NRGVXJWFJ TX INTERMITTENTRATUL [facility] Start: 63-29-0047OPDQWLXD RT PROTOCOLRATUL [facility]Start: 02-06-2018 NEBULIZER TX INTERMITTENTRATUL [facility]URIStart: 08-72-2663QOUA GLUCOSERATUL [facility]Start: 37-36-3371HYJD GLUCOSERATUL [facility]Start: 02-05-2018 Basic metabolic panel calcium totalRATUL [facility]Start: 74-81-4197CPJDDSUTZN AND HEMATOCRIT, BLOODRAT [facility]Start: 41-34-6739KPQZUZMPEX NON-VIOLENT OR CEW-QDAD-AQLZOBAATDVHVEXU [facility]Start: 03-82-9944TUGQTPROR RED BLOOD CELLSRATUL [facility]Start: 33-43-6702DFL, RAPID CITRATEDRATUL [facility] Start: 78-80-7417IVEAIZTMD RED BLOOD CELLSRAT [facility]Start: 02-05-2018 POCT GLUCOSERAT [facility]Start: 94-17-7517LJT TIDAL CO2 CONTINUOUSRATUL [facility]Start: 55-70-8413POGVNLKO OXYGEN THERAPY PROTOCOLRATVALLEY MEDICAL CENTERRI Start: 55-62-1357Pbptk bld/component collj storage predepositedRATUL [facility]Start: 11-61-6336NXDO AND SCREENRATUL [facility]Start: 02-05-2018 PREPARE RBC (CROSSMATCH)RAT [facility]Start: 92-56-0754Onoxq metabolic panel calcium totalRATUL [facility]Start: 00-51-9647Fuhbi count complete automated RATUL [facility]Start: 97-58-5375VZVV GLUCOSERATUL [facility]Start: 31-77-4198DWMTLXYM BLOOD GAS, POCRAT [facility]Start: 08-44-4297Ptigvotlry exam chest single viewRATUL [facility]Start: 58-12-5084JQC BLOOD GASRATUL [facility]Start: 14-39-2643SDZ TIDAL CO2 CONTINUOUSRATUL [facility]HURIStart: 46-89-5951ADXLSJWI BLOOD GAS, POCRATUL RAYCHAUDHURIStart: 42-78-8868LYRA GLUCOSE RATUL RAYCHAUDHURIStart: 72-16-0046CZGBR CARERATUL RAYCHAUDHURIStart: 02-05-2018 Basic metabolic panel calcium totalRATUL [facility]Start: 94-33-6631LWMJ GLUCOSERATUL RAY[facility]URIStart: 20-10-0001ORGXOAYHGJ, URINERATUL [facility] Start: 65-15-8887Brpez metabolic panel calcium totalRATUL [facility]Start: 47-41-4762ERXFCALBYXKPHIF [facility]Start: 41-68-9491RTBW GLUCOSERATUL [facility]Start: 13-47-4591EFSKGFFSKDHL [facility]Start: 05-83-7287Lthgm metabolic panel calcium totalRATUL [facility]Start: 66-07-9016Raocjup function panelRATUL [facility]Start: 18-16-2215Qssrzmlfcc [Mass/volume] in UrineRATUL [facility]Start: 91-67-1500FXYUKS, URINE, RANDOMRATUL [facility]Start: 72-27-5808UNJUHPSRLA NON-VIOLENT OR YJE-XOQG-UJEIOKXGMOGKVGLE RAYCHAUDHURIStart: 62-03-2543Ifeqc of lactateRATUL [facility]Start: 05-73-9340IZHH GLUCOSERATUL [facility]Start: 22-96-5892IGVIITOS OXYGEN THERAPY PROTOCOLRATUL [facility] Start: 54-00-4519UDLYFPDW CONSULT FOR RENAL DOSINGRATUL [facility]URIStart: 35-27-3328Xjsjd metabolic panel calcium totalRATUL [facility]Start: 02-04-2018 Blood count complete automatedRATUL RAYCHAUDHURIStart: 83-02-4185FQCOJZOS BLOOD GAS, POCRATUL RAYCHAUDHURIStart: 95-57-1693NNS DRAWRATUL RAYCHAUDHURIStart: 03-87-7148CJHX GLUCOSERATUL RAYCHAUDHURIStart: 41-31-2531LBDS GLUCOSERATUL RAYCHAUDHURIStart: 80-75-1558JCOD GLUCOSERATUL RAYCHAUDHURIStart: 02-03-2018 Assay of magnesiumRATUL RAYCHAUDHURIStart: 19-76-2663Grkyz of phosphorus inorganicRATUL RAYCHAUDHURIStart: 04-80-0511Fmjmfq serum plasma or whole blood RATUL RAYCHAUDHURIStart: 30-37-4401WUNOFHPVDL NON-VIOLENT OR UEK-DPRG-JABTVIZRYRSKOTNQ RAYCHAUDHURIStart: 16-19-1235VVBZ GLUCOSERATUL RAYCHAUDHURIStart: 53-99-1992IVWBLGDV OXYGEN THERAPY PROTOCOLRAT [facility] Start: 61-84-6609Vbfwz of magnesiumRATUL RAYCHAUDHURIStart: 29-49-8500Pdtky of phosphorus inorganicRATUL RAYCHAUDHURIStart: 34-50-1777Sexfz metabolic panel calcium totalRATUL R[facility]URIStart: 60-36-7208Irxav count complete automated RATUL RAYCHAUDHURIStart: 85-20-5905BJFL GLUCOSERATUL RAYCHAUDHURIStart: 33-47-0669Gapqz of lactateRATUL RAYCH[facility]HURIStart: 22-00-5847Olfqb metabolic panel calcium totalRATUL [facility]URIStart: 46-45-8473Dgspp count complete automatedRATUL [facility]URIStart: 77-01-5245Zoazsumbqh exam chest single view RATUL [facility]CHAUDHURIStart: 68-94-9051UQWHLULJ BLOOD GAS, POCRATUL [facility] Start: 48-89-7765JMNORDQWYIID PANEL, POCRATUL [facility]URIStart: 18-84-2205IZNU GLUCOSERATUL [facility]URIStart: 53-18-6262UCS BLOOD GASRATUL [facility]URIStart: 01-93-6831Hzncmq serum plasma or whole bloodRATUL [facility]URIStart: 02-03-2018 WOUND CARERATUL RAYCHAUDHURIStart: 47-76-7058RQLLNZVE TO DOSE VANCOMYCINRATUL RAY[facility]URIStart: 20-55-7760NVHH GLUCOSERATUL RAYCHAUD[facility]URIStart: 46-32-0452EMRG GLUCOSERATUL [facility]URIStart: 38-87-6990Qxgqod serum plasma or whole blood RATUL [facility]URIStart: 07-12-0182Wllfmb serum plasma or whole bloodRATUL [facility]URIStart: 57-73-8788Csugzgojsz [Mass/volume] in UrineRATUL [facility] Start: 79-33-4699SLLYBNKWXR, URINERATUL RAY[facility]URIStart: 90-97-3467GQIZWH, URINE, RANDOMRATUL RAY[facility]AUDHURIStart: 22-52-0527QB CONSULT TO NEPHROLOGYRATUL [facility]Start: 54-09-0114DZXA GLUCOSERATUL RAYCHAUDHURIStart: 02-02-2018 INITIATE OXYGEN THERAPY PROTOCOLRATUL RAYCHAUDHURIStart: 71-52-1264FXIZUNQMAR NON-VIOLENT OR TRR-DXQE-RUFAJHKOCUIIKFOS [facility]URIStart: 20-00-3320Wzanx metabolic panel calcium totalRATUL [facility]URIStart: 97-95-5804Weatd count complete automatedRATUL [facility]URIStart: 35-47-7557TYICCKJ, IONIZEDRATUL R[facility]URIStart: 72-30-7027ZSGQTTOYJMRGEBE [facility]URIStart: 29-67-5103XOBJ GLUCOSERATUL R[facility]URIStart: 98-66-1682Ozzeis serum plasma or whole blood RATUL R[facility]CHAUDHURIStart: 44-68-6948XBCL GLUCOSERATUL [facility]URIStart: 60-66-1794Eqoicj serum plasma or whole bloodRATUL RAYCHAUDHURIStart: 02-01-2018 POCT GLUCOSERATUL RAYCHAUDHURIStart: 56-33-0840LCBYAJXO BLOOD GAS, POCRATUL RAYCHAUDHURIStart: 76-86-0980PXJ GLUCOSE FINGERSTICKRATUL RAYCHAUDHURIStart: 17-80-1266Lhiaolmirk exam chest single viewRATUL RAYCHAUDHURIStart: 02-01-2018 POC BLOOD GASRATUL RAYCHAUDHURIStart: 85-05-6918HLLXIQUB PATIENTRATUL RAYCHAUDHURIStart: 84-98-7193RVFK CARERATUL RAYCHAUD[facility]URIStart: 26-30-9708Axdns metabolic panel calcium totalRATUL [facility]URIStart: 31-32-1801Jqagk count complete auto&auto difrntl wbcRATUL [facility]URIStart: 76-13-4359DNVHHEYFBI NON- VIOLENT OR PZO-VTKB-MKZJDOJELIVCRXVS [facility]AYCH[facility]HURIStart: 38-89-5910WQTKYFU COMMUNICATIONRATUL [facility]URIStart: 00-04-4644ZKQYMW REQUESTRATUL [facility] Start: 33-52-4183ZRTZK CARERATUL [facility]URIStart: 12-30-0588VAEOTZDS PATIENT RATUL [facility]URIStart: 92-59-0732DKRX GLUCOSERATUL [facility]URIStart: 01-62-2329EWCOPNAP OXYGEN THERAPY PROTOCOLRATUL [facility]URIStart: 02-01-2018 POCT GLUCOSERATUL [facility]URIStart: 97-28-4425CZH GLUCOSE FINGERSTICKRATUL [facility]URIStart: 27-07-3009ISYQ GLUCOSERATUL [facility]URIStart: 47-90-4061TLB GLUCOSE FINGERSTICKRATUL [facility]URIStart: 58-64-7134MTGI GLUCOSERATUL [facility]URIStart: 17-49-0394JYR GLUCOSE FINGERSTICKRATUL [facility]URIStart: 94-21-1733ZUFO GLUCOSERATUL [facility]URIStart: 90-62-5940SEHHBFME OXYGEN THERAPY PROTOCOLRATUL [facility]URIStart: 27-68-8860Xthba of magnesiumRATUL [facility] Start: 50-61-0618Bkhhy of phosphorus inorganicRATUL [facility]URIStart: 76-60-6311Kczrv metabolic panel calcium totalRATUL [facility]URIStart: 01-31-2018 Blood count complete auto&auto difrntl wbcRATUL [facility]: 01-31-2018 RESTRAINTS NON-VIOLENT OR XVA-DTLJ-RTVZPBIUCEYZTOAR RAYCHAUDRIStart: 56-34-8926WGA GLUCOSE FINGERSTICKRATUL [facility]Start: 41-55-6370ULYV GLUCOSE RATUL [facility]Start: 21-30-6029Txfvz dip stick/tablet reagent auto microscopyRATUL [facility]Start: 54-21-0271WBC GLUCOSE FINGERSTICKRATUL [facility]Start: 43-01-1319MMHD GLUCOSERATUL [facility]Start: 41-82-0193CZLJ GLUCOSERATUL [facility]Start: 58-29-4419GBSUMYIYB AND AEROBIC CULTURERATUL [facility]Start: 17-22-2998IMR GLUCOSE FINGERSTICKRATUL [facility]Start: 53-10-3185Sxznryrqps exam chest single viewRATUL [facility]: 01-30-2018 POCT GLUCOSERATUL [facility]: 95-15-8735VVTTSVAC OXYGEN THERAPY PROTOCOL RATUL [facility]Start: 08-74-8715CHECGAY BLOOD #1RATUL [facility]RIStart: 04-50-3096Aszkh of magnesiumRATUL [facility]Start: 78-57-6279Gtmkw of phosphorus inorganicRATUL [facility]Start: 83-38-5219Sneta count complete auto&auto difrntl wbcRATUL [facility]Start: 93-58-1050Qmsvropaqkucx metabolic panelRATUL [facility]Start: 88-28-9795QMW GLUCOSE FINGERSTICKRATUL RAYCHAUDHURIStart: 83-35-4836PSCW GLUCOSERATUL [facility]Start: 68-18-5672VQR GLUCOSE FINGERSTICKRATUL [facility]Start: 36-64-8043XAZNN WEIGHTSRATUL RAYCHAUDHURIStart: 36-66-3671NQPI GLUCOSERATUL [facility]Start: 01-29-2018 Assay of triglyceridesRATUL [facility]: 67-25-3512Zy abdomen & pelvis w/contrast materialRATUL [facility]Start: 39-09-6235FBSY GLUCOSERATUL [facility]Start: 30-78-8892INOQF CARERATUL [facility]: 01-29-2018 MISCELLANEOUS NURSING CARE ORDER (SPECIFY)RATPEDRO [facility]: 01-29-2018 NURSING COMMUNICATIONRATUL [facility]Start: 24-79-1170BGGJJBBXTP NUTRITION INDICATIONSRATUL [facility]Start: 50-84-3999DEMDQMDFLE NUTRITION INFUSION CHECKRATUL [facility]Start: 88-47-8355ET CONSULT TO DIETITIANRATWEST CALCASIEU [facility]ITALtart: 57-87-9844UUUVHXGBET NON-VIOLENT OR LYX-DBZO-IDZMVHVDVPJLDBWH [facility]Start: 55-11-4340SAHTOKKJXYBZ R[facility]CHAUDHURIStart: 38-41-6805Cghvq of triglyceridesRATMEMORIAL HOSPITAL AT GULFPORTUDRIStart: 38-79-0156AN CONSULT TO DIETITIANRATWEST [facility]ITALtart: 37-38-5582RAXLZG PHYSICIAN (SPECIFY)PACOPEDRO [facility]Start: 33-79-9341GMFNMPM COMMUNICATIONRATUL [facility]Start: 80-90-5718GJPXPKYPSL NUTRITION INDICATIONSRATUL [facility]Start: 72-63-3264AOST GLUCOSERATUL [facility]: 41-12-0820NSJBLBSH OXYGEN THERAPY PROTOCOLRATUL [facility] Start: 67-07-0738Tuhisiqfss exam chest single viewRATUL [facility]: 91-59-5924Vzfkr metabolic panel calcium totalRATUL [facility]: 01-29-2018 Blood count complete auto&auto difrntl wbcRATUL [facility]: 01-29-2018 BRAIN NATRIURETIC PEPTIDERATUL [facility]Start: 15-43-8088Monyo metabolic panel calcium totalRATUL [facility]: 88-78-2828KYEBPDX BLOOD #1RATUL [facility]URIStart: 61-70-9795DDEAKYDH PATIENTRATUL [facility]: 01-28-2018 INSERT PICC LINERATUL [facility]: 95-75-0580NUUYNDXSQJAGB NURSING CARE ORDER (SPECIFY)RATPEDRO RAYZANDERUDRIStart: 17-58-5425SL CONSULT TO INFECTIOUS DISEASESRATUL [facility]Start: 76-31-1572BDLWMGFH OXYGEN THERAPY PROTOCOLRATUL [facility]Start: 39-32-9197CRVCTUN COMMUNICATIONRATUL [facility]Start: 40-49-1827Ryezz of magnesiumRAT [facility]Start: 42-18-9143Vgtyr of phosphorus inorganicRATUL [facility]Start: 17-85-7042Gfekk metabolic panel calcium totalRATUL [facility]: 00-80-1209Yfzqu count complete auto&auto difrntl wbcRATUL [facility]Start: 29-81-8589A-reactive proteinRATUL [facility]Start: 19-26-0987Xlybuqh function panelRATUL [facility]Start: 82-90-8830HJRHRJHGGYICAAI [facility]: 93-48-6269RFVJRHBAMQQBRIVA [facility]Start: 98-29-4284FIB WITH REFLEXRATUL RAYCHAUDRIStart: 01-28-2018 Ct abdomen & pelvis w/contrast materialRATUL [facility]: 01-27-2018 RESTRAINTS NON-VIOLENT OR JCU-ILQH-ZDGOKELAYPBINQRF [facility]: 52-75-0749Smrsrakydo exam abdomen 1 viewRATUL [facility]Start: 01-27-2018 Radiologic exam abdomen 1 viewRATUL [facility]RIStart: 21-04-3529Fmqxp spine lumbosacral 2/3 viewsRATUL [facility]URIStart: 75-40-5839Ntpmkulypu exam chest single viewRATUL [facility]Start: 73-34-4735XDGZAXOQ OXYGEN THERAPY PROTOCOL RATUL [facility]Start: 12-80-1266Flnhk of magnesiumRATUL [facility]RIStart: 07-50-0647Qtvdr of phosphorus inorganicRATUL [facility]Start: 96-63-6732Pqrdy metabolic panel calcium totalRATUL [facility]Start: 09-98-3119Lcqgb count complete auto&auto difrntl wbcRATUL [facility]Start: 37-50-4819EHBVXUNHBV, RANDOMRATUL [facility]Start: 10-45-0872LTYUAVN, IONIZEDRATUL [facility] Start: 89-23-5952Izjzzsiui serum plasma/whole bloodRATUL [facility]Start: 73-65-9306Aczmvkved serum plasma/whole bloodRATUL [facility]Start: 01-26-2018 VANCOMYCIN, TROUGHRATUL [facility]URIStart: 45-06-1372EI CONSULT TO IV TEAMRAT [facility]: 80-19-9797LWAWJKWD OXYGEN THERAPY PROTOCOLRATUL [facility] Start: 72-31-8164Ygjlkggqpp exam abdomen 1 viewRATUL [facility]URIStart: 59-83-1352Vievpfdtfi exam chest single viewRATUL [facility]Start: 01-26-2018 Assay of magnesiumRATUL [facility]: 20-71-0263Ooglw of phosphorus inorganicRAT [facility]Start: 99-83-3153Hbvgh metabolic panel calcium total RATUL [facility]: 70-20-6932Ouvlk count complete auto&auto difrntl wbc RATUL [facility]RIStart: 15-33-8837MGHIL NATRIURETIC PEPTIDERATUL [facility] Start: 32-80-5879QHZOBOH, IONIZEDRATUL [facility]Start: 20-39-6026Dctdnanfp serum plasma/whole bloodRATUL [facility]Start: 66-56-8177LOIALOUWAF NON- VIOLENT OR LPZ-OVWU-UUKCHNLPLILRJGOQ [facility]Start: 94-38-2219Vasqoscxz serum plasma/whole bloodRATUL [facility]Start: 60-56-2729Yj abdomen & pelvis w/contrast materialRATUL [facility]Start: 16-93-5037ZFJSCQAP PATIENTRATUL [facility]Start: 31-86-2484DZX 12-LEADRATUL [facility]Start: 70-17-7924TKA REPORTRATUL [facility]Start: 61-06-1951Kiidpusyct exam chest single viewRATUL [facility]Start: 47-82-6518Xgoto count complete auto&auto difrntl wbcRATUL [facility]Start: 75-98-7515CKYDYILQTN, TROUGHRATUL [facility]Start: 94-37-9942IVBGJQZL OXYGEN THERAPY PROTOCOLRATUL [facility]Start: 01-25-2018 Assay of magnesiumRATUL [facility]Start: 29-96-6494Iwibg of phosphorus inorganicRATUL [facility]Start: 85-06-4246Mznff metabolic panel calcium total RATUL [facility]Start: 92-75-7473TOSBXCI, IONIZEDRATUL [facility]Start: 44-98-1549Tjxbnhifx serum plasma/whole bloodRATUL [facility]Start: 01-24-2018 RESTRAINTS NON-VIOLENT OR JGL-JUSX-SLCCVNMEPPTICSHQ [facility]Start: 14-54-9491Nijtkaceo serum plasma/whole bloodRATUL [facility]Start: 01-24-2018 INITIATE OXYGEN THERAPY PROTOCOLRATUL [facility]Start: 71-35-1494Tgsgk of magnesiumRATUL [facility]Start: 98-01-0181Qbbff of phosphorus inorganicRATUL [facility]Start: 75-33-4610Irjuk metabolic panel calcium totalRATUL [facility]Start: 55-68-7873Drmlk count complete automatedRATUL [facility] Start: 44-17-0124AGMNGQF, IONIZEDRATUL [facility]Start: 94-94-5556Qcfrevesxy exam chest single viewRATUL [facility]Start: 04-58-1931ZLFAXOXOOZ, TROUGHRATUL [facility]Start: 18-09-1040Rzwpagzwc serum plasma/whole bloodRATUL [facility]Start: 80-77-2489ABTTSUNW BLOOD GAS, POCRATUL [facility]URIStart: 06-76-2170Dnjzw gases any combination ph pco2 po2 co2 dbn1WJPYV [facility] Start: 07-12-1515DKWXXKD, IONIZEDRATUL [facility]Start: 57-90-6990Lrqxz of magnesiumRATUL [facility]Start: 36-24-1059FIOXBIN, IONIZEDRATUL [facility] Start: 02-64-1094NDL 12-LEADRATUL [facility]URIStart: 09-87-6547NCX REPORTRATUL [facility]RIStart: 13-43-5136QLYAMMCZ BLOOD GAS, POCRAT [facility]: 16-77-7476EPY 12-LEADRATUL [facility]Start: 30-20-3501NRJ REPORTRATUL [facility]Start: 66-96-8023Sqehxlemkn exam chest single viewRAT [facility] Start: 23-44-8144NEGWMAUX OXYGEN THERAPY PROTOCOLRAT [facility]Start: 08-65-9620Itbes gases any combination ph pco2 po2 co2 ldv2NXJMP [facility] Start: 73-02-8382Vscpo of magnesiumRAT [facility]Start: 52-58-4348Necup metabolic panel calcium totalRAT [facility]Start: 82-49-7800Dbnxx count complete automatedRAT [facility]Start: 01-24-3445DRLGU NATRIURETIC PEPTIDE RAT [facility]: 24-42-7025Mklpcpgqcbl platelet assayRAT [facility] Start: 66-59-6589ZDREWNHTZA, TROUGHRAT [facility]: 78-28-0900WPZDPWR D 25 HYDROXYRAT [facility]: 41-94-7671Prtdv gases any combination ph pco2 po2 co2 eqo6RTCUX [facility]: 86-26-9370Ffapiblyvqgyk metabolic panel RAT [facility]Start: 85-35-5062Znxfo count complete auto&auto difrntl wbc RAT [facility]Start: 94-96-0712KABAWKNV BLOOD GAS, POCRAT [facility] Start: 85-74-1269Ynwwa gases any combination ph pco2 po2 co2 wqo8UZPYK [facility]: 36-69-9340VPE 12-LEADRAT [facility]Start: 64-11-4377JVW REPORTRAT [facility]Start: 45-18-6496DYRJKQMA BLOOD GAS, POCRAT [facility]Start: 36-73-0685Acrfw gases any combination ph pco2 po2 co2 hco3 R[facility]VAL[facility]RIStart: 30-46-5626VK CONSULT TO DIETITIANRATKING'[facility] Start: 79-32-9028DWYJHICD TO DOSE VANCOMYCINRATMEMORIAL [facility]ULFPORTUDRIStart: 01-22-2018 Echo tthrc r-t 2d w/wom-mode compl spec&colr dRATVALLEY MEDICAL CENTERRIStart: 54-18-1703RLGBGLKP BLOOD GAS, POCRAT [facility]Start: 82-93-5714IDNAPIZR OXYGEN THERAPY PROTOCOLRAT [facility]Start: 33-00-5073WRNBATOQ BLOOD GAS, POCRAT [facility]Start: 26-38-3803Vwgae gases any combination ph pco2 po2 co2 koh2ORQNH [facility]Start: 99-85-4616Gwzqygahkc exam chest single view RAT [facility]Start: 74-83-6669Rpzza of magnesiumRATMEMORIAL HOSPITAL AT GULFPORTUDRIStart: 72-95-9755Yysuq of phosphorus inorganicRATVALLEY MEDICAL CENTERRIStart: 60-33-5721Fskcr metabolic panel calcium totalRAT [facility]Start: 65-54-7949Hwihi count complete automatedRAT [facility]Start: 19-16-8374ZOIYZ NATRIURETIC PEPTIDE RAT [facility]Start: 95-41-7249Jimurmekwrv platelet assayRATMEMORIAL HOSPITAL AT GULFPORTUDRI Start: 46-33-3452YOSYHSXQ OXYGEN THERAPY PROTOCOLRAT [facility]Start: 68-09-2405NYMSLBH DEHYDROGENASE, BODY FLUIDRAT [facility]Start: 01-21-2018 PROTEIN, BODY FLUIDRAT [facility]Start: 17-79-6571Kijgxlyqlr exam chest single viewRATUL [facility]URIStart: 30-43-3735EVDYQTY DEHYDROGENASERATUL [facility]URIStart: 35-62-9268Zeqxwtq xcpt refractometry serum plasma/whl bld RATPEDRO [facility]URIStart: 38-20-1147Tetnurjjkuzuj needle/cath pleura w/imaging RATPEDRO [facility]URIStart: 51-39-0764GLPHE SIGNSRATUL RAYCHAUDRIStart: 78-60-2530PJJPPUFVYDRGX NURSING CARE ORDER (SPECIFY)RATPEDRO [facility]URIStart: 98-95-5232FQCQJZS COMMUNICATIONRATUL [facility]URIStart: 25-89-1197UIUO PATIENT RATUL [facility]AY[facility]AUDRIStart: 55-71-1015JNFJKJG HEELS OFF OF BEDRAT [facility] Start: 66-04-8160DVBOA NATRIURETIC PEPTIDERATUL RAYCHAUDRIStart: 01-21-2018 Creatinine [Mass/volume] in UrineRAT [facility]Start: 87-92-0204QQIZST, URINE, RANDOMRAT [facility]Start: 82-83-5891Uvtqlyzxaq exam chest single viewRATUL [facility]URIStart: 40-76-9181Wbuxdimlax exam abdomen 1 viewRAT [facility]Start: 97-77-6066DMLOJFJD PATIENTRATUL [facility]URIStart: 01-21-2018 Assay of lactateRATUL [facility]Start: 64-25-9912Tjcxp of magnesiumRAT [facility]Start: 94-42-2585Ihkul of phosphorus inorganicRAT [facility] Start: 00-16-4157Xbxif metabolic panel calcium totalRATUL [facility]URIStart: 79-08-8290Lnryu count complete automatedRATUL [facility]URIStart: 01-21-2018 CALCIUM, IONIZEDRATUL RAYCHAUDRIStart: 80-07-6839Bjonrvldowi platelet assay RATPEDRO [facility]AY[facility]RIStart: 40-87-7797OJRI PRECAUTIONSRATUL RAY[facility]URIStart: 83-07-6227XDYJVTPRUGMMUSK RAYCHAUDRIStart: 26-56-1118Uuvpoehkmpj urinalysis [facility]RIStart: 40-62-1843QWJUM RT REFLEX TO CULTURERAT [facility] Start: 05-67-7391JKDJEHGQI CONSULT TO MARKETING SALES MANAGER/PROSTHETISTRATKING'[facility] Start: 86-99-7665Ebdlo of lactateRATUL [facility]URIStart: 32-25-0080Svxcc of magnesiumRATUL [facility]URIStart: 63-24-7792Kqv spinal canal cervical w/o contrast matrlRATUL [facility]Start: 64-46-9262Ox lumbar spine w/o contrast materialRATUL [facility]AY[facility]URIStart: 17-17-5628Pf thoracic spine w/o contrast materialRATUL [facility]URIStart: 58-55-8584YRANSF STRIP REPORTRAT [facility] Start: 43-82-6979ACRGXRGSI PLATELETSRAT [facility]Start: 01-20-2018 Radiologic exam chest single viewRAT [facility]Start: 80-44-0441GWBKFJHF BLOOD GAS, POCRATUL [facility]URIStart: 25-68-3969Crghu of lactateRATUL [facility]AY[facility]URIStart: 36-26-5229Jfhvz of magnesiumRAT [facility]Start: 18-76-9015Bioip of phosphorus inorganicRATMEM[facility]RIStart: 63-07-5050Soizd metabolic panel calcium totalRAT [facility]Start: 28-48-7691Mteav count complete auto&auto difrntl wbcRAT [facility]Start: 03-78-1171YFKQKOK, IONIZEDRAT [facility]Start: 50-88-2194Rod spinal canal lumbar w/o contrast materialRAT [facility]URIStart: 72-40-9901Ysrfwrxyqag blood/blood components [facility]RIStart: 14-78-4387XMAZLHIATT NON-VIOLENT OR LRT-VZKW-TFCMOZKMOTWNOYKU [facility]Start: 21-99-8351XHELGCLK BLOOD GAS, POC RAT [facility]URIStart: 46-07-1216FTDMGKZAF FRESH FROZEN PLASMARAT [facility]Start: 13-04-7575Mlrvi of lactateRATUL [facility]AY[facility]URIStart: 01-20-2018 Assay of magnesiumRATUL [facility]URIStart: 16-80-6742Kwkoz of phosphorus inorganicRATUL [facility]URIStart: 74-55-7544Czcme metabolic panel calcium total RATUL [facility]URIStart: 39-92-7265Lstnd count complete auto&auto difrntl wbc RATUL [facility]URIStart: 45-15-7108EYCQTWP, IONIZEDRATUL [facility]URIStart: 89-23-0674Haeahog function panelRATUL [facility]URIStart: 56-43-1371VXR, RAPID CITRATEDRATUL [facility]URIStart: 56-36-1065RSBO DNA PROBE, NASALRATUL [facility]URIStart: 65-53-0809KAMTWMIHM FRESH FROZEN PLASMARATUL [facility] Start: 04-83-4770Xnfalhsjvg exam chest single viewRATUL [facility]URIStart: 78-26-2229Aymrv gases any combination ph pco2 po2 co2 ffi4WIOSJ [facility] Start: 30-99-8959NSZGWDOSV BINDERRATUL [facility]URIStart: 65-12-1424XUPR CODE RATUL [facility]URIStart: 03-30-0875GT EVAL AND TREATRATUL [facility]URIStart: 00-90-8874IHGQX INTERMITTENT PNEUMATIC COMPRESSION DEVICERATUL [facility] Start: 39-76-5904IK EVAL AND TREATRATUL [facility]URIStart: 53-16-4439MQQINL FOR NO CHEMICAL VTE PROPHYLAXISRATUL [facility]AY[facility]URIStart: 63-58-5331CGZ EVAL AND TREAT RATUL [facility]URIStart: 50-26-6497NUXUZ SIGNSRATUL [facility]AY[facility]URIStart: 44-27-5373CQHKWCNS PATIENTRATUL [facility]URIStart: 49-44-1149DZNEDROP COUNTRATUL [facility]URIStart: 62-10-0163KZJ, RAPID CITRATEDRATUL [facility]AY[facility]URIStart: 59-29-3834ZXFZNJA, IONIZEDRATUL RAY[facility]URIStart: 87-73-9313PIQBHLOPEYXSVHW [facility]AY[facility]URIStart: 64-99-4195UEXH HEART PANELRATUL [facility]AY[facility]URIStart: 01-20-2018 Prothrombin timeRATUL [facility]AY[facility]URIStart: 15-76-0643Kqsxqzelxhomzy time partial plasma/whole bloodRATUL [facility]URIStart: 65-01-6855GNJBZWD STATUS (FROM ED OR OR/PROCEDURAL)RATUL [facility]URIStart: 08-56-8149CHDAVZTR PATHOLOGYRATUL [facility]AY[facility]URIStart: 63-94-3521HIEIINSHL RED BLOOD CELLSRATUL RAYCH[facility]URIStart: 79-15-6738KPZBXCR RBC (CROSSMATCH)RATUL [facility]URIStart: 41-24-2355DXTBHNS, IONIZEDRATUL [facility]AY[facility]URIStart: 47-70-3200PYXC HEART PANELRATUL [facility] Start: 94-11-5778Cwddhuplbwj blood/blood componentsRATUL [facility]URIStart: 54-96-6638Wu angio abd&plvis cntrst mtrl w/wo cntrst imgRATUL RAYCHAUDHURIStart: 77-61-5827YM CONSULT TO NEUROSURGERYRATUL RAYCHAUDHURIStart: 50-80-1538SSDD AND SCREENRATUL RAYCHAUDHURIStart: 16-89-0866Gklal of amylaseRATUL RAYCHAUDHURI Start: 01-79-2223Qqnwf of lipaseRATUL RAYCHAUDHURIStart: 52-77-7491Hxeackh function panelRATUL RAYCHAUDHURIStart: 81-68-5745VBA, RAPID CITRATEDRATUL RAYCHAUDHURIStart: 96-07-9915VJZBIQ PANELRATUL RAYCHAUDHURIStart: 01-19-2018 SURGICAL PATHOLOGYRATUL RAYCHAUDHURIStart: 28-64-9518OHGTPEKSJ, QUADV, 3 YRS AND OLDER, IM, MDV, 0.5ML (FLUZONE QUADV)HASEEB AMSTUTZStart: 95-95-5829TQYYDKULAYEB POLYSACCHARIDE VACCINE 23-VALENT =>2YO SQ/IMERIC AMSTUTZHernia Hill Hospital of [facility] Carrie Lacy Work Phone: History of radiation therapyHistory of radiation therapyG Сергей Carpenter MD Work Phone: History of radiation therapyHistory of radiation therapyG Сергей Carpenter MD Work Phone: Operation on lungMarc A Naderer Work Phone: SplenectomyMarc A Naderer Work Phone: Total colonoscopyMarc A Naderer Work Phone: Plan of Treatment DateCare ActivityDetailAuthorStart: 52-51-5296UDyC,Tdap and Td Vaccines (3 - Td or Tdap)DTaP,Tdap and Td Vaccines (3 - Td or Tdap)[facility] SystemStart: 33-84-3567HSgQ/Tdap/Td Vaccines (3 - Td or Tdap)DTaP/Tdap/Td Vaccines (3 - Td or Tdap)[facility] CenterStart: 48-55-6636Qepdj microalbumin profileDTaP,Tdap,Td Vaccine (3 - Td or Tdap)[facility]: 04-04-2030 Screening for malignant neoplasm of colonNORay County Memorial HospitalStart: 03-83-6823Erayf panelLipid ScreeningSelect [facility]htart: 50-47-1684PJoF/Tdap/Td Vaccines (2 - Td or Tdap)DTaP/Tdap/Td Vaccines (2 - Td or Tdap)[facility] CenterStart: 49-35-2777Ehhdf microalbumin profileSelect Medical Specialty [facility]htart: 62-92-3213Mcugrvnr ScreeningDiabetes ScreeningSelect Medical [facility]ty [facility]htart: 12-14-2026 Diabetes ScreeningDiabetes ScreeningSelect Medical [facility]ty [facility]: 91-77-4992Emaifrym ScreeningDiabetes ScreeningSelect [facility]ty [facility]htart: 85-65-4764Ubhyzcwn Screening Diabetes ScreeningSelect [facility]: 69-46-4039Vauhkrat ScreeningDiabetes ScreeningSelect [facility]htart: 60-48-8582DMYRJUCBMVPG (3 - PPSV23 or PCV20) PNEUMOCOCCAL (3 - PPSV23 or PCV20)[facility]: 05-91-9044Qxpychdanogz vaccinationSelect [facility]art: 53-19-8800Wiyxmowdnojz Vaccine: Pediatrics (0 to 5 Years) and At-Risk Patients (6 to 64 Years) (3 - PPSV23 orPCV20) Pneumococcal Vaccine: Pediatrics (0 to 5 Years) and At-Risk Patients (6 to 64 Years) (3 - PPSV23 orPCV20)[facility]: 2025 Pneumococcal Vaccine: Pediatrics (0 to 5 Years) and At-Risk Patients (6 to 64 Years) (3 of 3 - PPSV23 or PCV20)Pneumococcal Vaccine: Pediatrics (0 to 5 Years) and At-Risk Patients (6 to 64 Years) (3 of 3 - PPSV23 or PCV20)[facility]: 18-60-6970EOSGPZYJ SCREENDIABETES SCREENSelect Medical [facility]: 06-27-2025 End: 52-45-4263Iudupjd encounter vxbsvhbyh65/24/2026 1:45 PM EST Office Visit Radiation Oncology [address] [place] [address] [place] [address] Kathrine Carpenter MD [address] [place] [address] [place] [address] 6 month follow upRadiation OncologyComment on above:6 month follow upStart: 06-22-2025 End: 12-52-6709JZS W/REFLEX FT4TSH W/REFLEX FT4 Lab Routine Hypothyroidism due to acquired atrophy of thyroid Expected: 06/22/2025, Expires: 09/21/2025 [facility] Work Phone: Comment on above:Expected: 06/22/2025, Expires: 09/21/2025Start: 29-36-5843IS Controlled (<130/80)BP Controlled (<130/80) [facility]: 06-20-2025 End: 16-12-7907Rvmjtib encounter mefhkslfh27/17/2026 11:00 AM EST Office Visit [facility] [address] [place] [address] LABOur [facility] LaboratoryComment on above:LABStart: 89-38-4977SRGUYDCF SCREENDIABETES SCREENFlom ClinicStart: 05-05-2025 End: 56-28-0092Frmfvnp encounter abdldumqs11/02/2026 2:00 PM EST Office Visit [facility] [address] [facility] [address] [place] [address] Carmen Neely MD [address] [facility] [place] [address] [facility] HospitalStart: 04-18-2025 End: 12-20-5961Cwwhkqt encounter sljmnbjil83/16/2025 10:00 AM EST Office Visit [facility] [address] [place] [address] Gildardo Lacy MD [address] [place] [address] [facility] CWM FMStart: 12-10-2025Medicare Annual Wellness (AWV)Medicare Annual Wellness (AWV)[facility] HealthcareStart: 02-21-2025 End: 44-26-1607Yeqqcct encounter /21/2025 2:15 PM EDT Office Visit [facility] [address] [place] [phone] Jl Shepherd, DPM [address] [place] [address] [facility] Geoff PodiatryStart: 02-15-2025 End: 85-84-3808Kbikyag encounter yhclezjca99/15/2025 3:00 PM EDT Office Visit [facility] [address] [place] [phone] Kaela Negrete, DO [address] [facility] [place] [address] [facility] FNR PULMStart: 28-97-4904IBQVXFKO SCREENDIABETES SCREEN [facility] ClinicStart: 01-10-2025 End: 44-19-4232Xcvemzm encounter erboynuru86/09/2025 1:30 PM EDT Office Visit [facility] [address] [facility] [phone] Jl Shepherd, DPM [address] [place], [place] [address] ArrivedNOMS Tellez PodiatryComment on above:ArrivedStart: 25-79-1099AWPYB-19 Vaccine ()COVID-19 Vaccine ()[facility] SystemStart: 01-33-3528Jbpbetets vaccinationNOMO HealthcareStart: 12-21-2024 End: 21-54-3534Llrmsde encounter procedureNOMS FNR PULMComment on above:Chronic obstructive pulmonary disease, unspecified COPD type (HCC); Chronic hypoxic respiratory failure (HCC)Start: 12-20-2024 End: 76-11-4411Yercvns encounter procedureRadiation OncologyComment on above: FollowupStart: 11-07-2024 End: 69-54-2355Rtqwtrnlqrwd / ancillary services pazqxdkwyy34/07/2025 2:00 PM EDT Ancillary Procedure [facility] [address] [place] [address] [facility] FNR RADIOLOGYStart: 55-47-0548Kjmml BMI Screening Adult BMI ScreeningHolmes County [facility] Hospital SystemStart: 54-73-6835Tjdxnaq Screening Tobacco ScreeningHolmes County [facility] Hospital SystemStart: 10-11-2024 End: 25-63-8347Kahexjx encounter procedureNOMS CWM FMComment on above:Arrived Start: 45-16-9340FITRFUHT SCREENDIABETES SCREENSelect [facility]: 09-24-2024 DIABETES SCREENDIABETES SCREENSelect [facility]: 42-03-0813GFDWGAGB SCREEN DIABETES SCREENSelect [facility]: 09-15-2024 End: 01-57-0894Jhcegku encounter tvptuhcsa29/15/2025 1:45 PM EDT Office Visit [facility] [address] [place] [address] Gildardo Lacy MD [address] [place] [address] [facility] CWM FMStart: 09-12-2024 End: 95-39-6523Hxcut 1996 panel - Serum or PlasmaLipid Panel Lab Routine Hyperlipidemia, unspecified hyperlipidemia type Expected: 09/12/2024 (Approx imate), Expires: 09/12/2025[facility] Service Area Work Phone: Comment on above:Expected: 09/12/2024 (Approximate), Expires: 09/12/2025Start: 97-24-0683HBISALMU SCREENDIABETES SCREENFlom ClinicStart: 09-08-2024 End: 08-22-3518Arxrbix encounter procedureNOMS CWM FMComment on above:Arrived Start: 09-05-2024 End: 96-08-8424Satdfxshpegn consultation with zpapvlk6909/05/2024 10:00 AM EDT Telemedicine [facility] Department of [facility] [facility] [address] [place] [address] Mireya Restrepo MD [address] [facility] [address] [place] [address] [facility]: 09-50-4661XXUGHXWV SCREENDIABETES SCREENCleveland ClinicStart: 41-31-0466KPXSCCWJ SCREENDIABETES SCREENCleveland ClinicStart: 08-19-2024 DIABETES SCREENDIABETES SCREENCleveland ClinicStart: 10-77-0867EZHUMPZG SCREEN DIABETES SCREENCleveland ClinicStart: 08-03-2024 End: 63-84-3969Tvzedcu encounter ebwawoygh07/02/2025 10:00 AM EDT Office Visit [facility] [address] [place] [address] Rashida Zarate NP [address] [place] [address] Occlusion of left internal carotid artery (Primary Dx); Dyslipidemia (CMS/HCC); Cerebrovascular accident (CVA), unspecified mechanism (CMS/HCC)[facility] CWM FMComment on above:Occlusion of left internal carotid artery (Primary Dx); Dyslipidemia (CMS/HCC); Cerebrovascular accident (CVA), unspecified mechanism (CMS/HCC)Start: 06-28-2024 DIABETES SCREENDIABETES SCREENFlom ClinicStart: 06-21-2024 End: 76-41-2963Tkpkypo encounter euvnuriiv70/18/2025 1:30 PM EST Office Visit Radiation Oncology [address] [place] [address] [place] [address] Kathrine Carpenter MD [address] [place] [address] [place] [address] FollowupRadiation OncologyComment on above:FollowupStart: 06-10-2024 End: 09-94-0208Nkqogek encounter procedureRadiologyComment on above:XR SHOULDER GENERAL 3V OR MORE AP/TRUE AP/OTHER RIGHTRt shoulder / arthralgiaStart: 06-09-2024 End: 46-68-3612Yyqneqa encounter ezzucvhmk30/06/2025 10:20 AM EST Office Visit [facility] [address] [facility] [address] [place] [address] Carmen Neely MD [address] [facility] [address] [place] [address] [facility]: 05-24-2024 End: 60-51-1195Faxbbma encounter procedureNOMS FB ORTHOPAEDICSComment on above: S/P arthroscopy of right shoulder (Primary Dx); Internal derangement of shoulder, rightStart: 05-06-2024 End: 54-25-8192PU Shoulder - right WO contrastMR shoulder right wo IV contrast Imaging Routine Internal derangement of shoulder, right Expected: 05/06/2024 (Approximate), Expires: 05/06/2025[facility] Work Phone: Comment on above:Expected: 05/06/2024 (Approximate), Expires: 05/06/2025Start: 05-06-2024 End: 11-58-1302Ddqndqb encounter procedureNOMS FB ORTHOPAEDICSComment on above: S/P arthroscopy of right shoulder (Primary Dx)Start: 01-01-2025Medicare Advantage Annual Wellness VisitMedicare Advantage Annual Wellness VisitSelect [facility]: 04-12-2024 End: 26-26-0758OR Foot - left 2 ViewsXR foot 1 or 2 views left Imaging Routine Left foot pain Expected: 04/12/2024, Expires: 04/12/2025[facility] Work Phone: Comment on above:Expected: 04/12/2024, Expires: 04/12/2025Start: 04-12-2024 End: 00-30-0647Przldoa encounter procedureNOMS CWM FMComment on above:Arrived Start: 03-23-2024 End: 29-11-5055Ottxxty encounter procedureNOMS FB ORTHOPAEDICSComment on above: S/P arthroscopy of right shoulder (Primary Dx)Start: 02-29-2024 End: 28-00-8913Antznww encounter procedureNOMS CWM FMComment on above:Arrived Start: 02-23-2024 End: 37-13-1322Gjqlfgc encounter procedureNOMS FB ORTHOPAEDICSComment on above: S/P arthroscopy of right shoulder (Primary Dx)Start: 02-09-2024 End: 01-02-9033Ohhqcqh encounter hqorydwvv23/08/2024 11:30 AM EDT Procedure Visit [facility] EXT Jr. Martin Dumas, [address] [place] [address] [facility] EXT DEPStart: 02-02-2024 End: 82-02-8270GRQ 12 leadECG 12 lead ECG Routine Preop examination Expected: 02/02/2024 (Approximate), Expires: 01/27/2025[facility] Work Phone: Comment on above:Expected: 02/02/2024 (Approximate), Expires: 01/27/2025Start: 31-93-1124ITFUB-19 Vaccine ( season)COVID- 19 Vaccine ()[facility] CenterStart: 76-26-3659UYBLE-19 Vaccine ()COVID-19 Vaccine ()[facility] SystemStart: 93-46-4179Neiti-19 Vaccine ()Covid-19 Vaccine ()[facility]: 01-03-2024 Influenza vaccinationInfluenza Vaccine (#1)[facility]: 12-28-2023 End: 29-15-9640Fpmtmxx encounter boozudhht78/26/2024 2:00 PM EDT Office Visit [facility] [address] [place] [address] Jr. Martin Chen, [address] [address] ArrivedNOSSM [facility] ORTHOPAEDICSComment on above:ArrivedStart: 12-22-2023 End: 42-49-0508Vgnycg-up /20/2024 3:15 PM EDT Visit (SP) Office Hematology/Oncology [address] [place], [place] [phone] Esdras Cash MD [address] [place] [address] 18 week follow up for pet scan resultsHematology/OncologyComment on above:18 week follow up for pet scan resultsStart: 12-22-2023 End: 67-78-7851Uuwvzcg encounter /20/2024 2:45 PM EDT Office Visit Radiation Oncology [address] [place] [address] Kathrine Carpenter MD [address] [place] [address] FollowupRadiation OncologyComment on above:FollowupStart: 12-18-2023 End: 66-51-5318BOH W Auto Differential panel - BloodCOMPLETE BLOOD COUNT AND DIFFERENTIAL Lab Routine Cancer of base of tongue (HCC) Malaise and fatigue Expected: 12/18/2023 (Approximate), Expires: 03/18/2024[facility] Work Phone: Comment on above:Expected: 12/18/2023 (Approximate), Expires: 03/18/2024Start: 12-18-2023 End: 85-27-4264Nsvtqwnnumxav metabolic 2000 panel - Serum or PlasmaCOMPREHENSIVE METABOLIC PANEL Lab Routine Cancer of base of tongue (HCC) Malaise and fatigue Expected: 12/18/2023 (Approximate), Expires: 03/18/2024[facility] Work Phone: Comment on above:Expected: 12/18/2023 (Approximate), Expires: 03/18/2024Start: 12-18-2023 End: 03-42-8609Uwiwqebzmvt [Units/volume] in Serum or PlasmaTHYROID STIMULATING HORMONE Lab Routine Cancer of base of tongue (HCC) Malaise and fatigue Expected: 12/18/2023 (Approximate), Expires: 03/18/2024[facility] Work Phone: Comment on above:Expected: 12/18/2023 (Approximate), Expires: 03/18/2024Start: 12-15-2023 End: 15-25-8227Jcfxzqf encounter gbbvhyjus18/13/2024 9:00 AM EDT Appointment Radiology Pet CT [address] [facility] [place] [place] [address] Pet scan Radiology Pet CTComment on above:Pet scanStart: 11-17-2023 End: 76-70-0013Fnklhpl encounter cunwgokuy96/16/2024 10:20 AM EDT Office Visit [place] [address] [place] [address] Carmen Neely MD [address] [facility] [address] [place] [address] [facility]: 79-50-1169UJ CONTROLLED (<130/80)BP CONTROLLED (<130/80)[facility]: 98-39-1405Mnqjuakmh vaccinationLUNG CANCER SCREENINGSelect Medical [facility]ty [facility]htart: 77-64-1378Cwwsgksrz for malignant neoplasm of lungLung Cancer ScreeningSelect Medical [facility]ty [facility]htart: 71-90-3038CX CONTROLLED (<130/80)BP CONTROLLED (<130/80)[facility]: 78-75-4263CR CONTROLLED (<130/80)BP CONTROLLED (<130/80)[facility]: 05-06-2023 End: 52-86-7564Uqngb 1996 panel - Serum or PlasmaLipid Panel Lab Routine Hyperlipidemia, unspecified hyperlipidemia type Expected: 05/06/2023 (Approx imate), Expires: 05/06/2024[facility] Service Area Work Phone: Comment on above:Expected: 05/06/2023 (Approximate), Expires: 05/06/2024Start: 32-77-1203ZB CONTROLLED (<130/80)BP CONTROLLED (<130/80)[facility]: 23-76-6858Fbpmagolx vaccinationLUNG CANCER SCREENINGSelect Medical [facility]: 01-25-0650Yeyhuxcry for malignant neoplasm of colonColonoscopyKettering Health Prebleca Health SystemStart: 52-64-3776WT CONTROLLED (<130/80) BP CONTROLLED (<130/80)[facility]: 43-61-3820ER CONTROLLED (<130/80) BP CONTROLLED (<130/80)[facility]: 92-71-3196Tphyilrppwlj vaccination Pneumococcal Vaccine (3 of 3 - PCV20 or PCV21)[facility] Start: 85-65-7161Mwpotzjftbuo Vaccine: 50+ (3 of 3 - PCV20 or PCV21)Pneumococcal Vaccine: 50+ (3 of 3 - PCV20 or PCV21)[facility]: 99-02-5637Jzkxi-19 Vaccine ()Covid-19 Vaccine ()[facility]: 35-73-2153Swrddlocp vaccinationSelect Medical Specialty Hospital [facility]htart: 22-30-0815MQ CONTROLLED (<130/80)BP CONTROLLED (<130/80)[facility]: 21-08-0594LUO, Provider: Carmne Neely, Status: Pen, Time: 10:20 AMEPV, Provider: Carmen Neely, Status: Pen, Time: 10:20 AMMP-[facility] [address] DO Work Phone: Start: 82-10-4442BT CONTROLLED (<130/80)BP CONTROLLED (<130/80)[facility]: 54-79-1782ZL CONTROLLED (<130/80)BP CONTROLLED (<130/80)[facility]: 80-70-0180VM CONTROLLED (<130/80)BP CONTROLLED (<130/80)[facility]: 45-59-2352ET CONTROLLED (<130/80)BP CONTROLLED (<130/80)[facility]: 85-15-5800EY CONTROLLED (<130/80)BP CONTROLLED (<130/80)[facility]: 10-57-4993QM CONTROLLED (<130/80)BP CONTROLLED (<130/80)[facility]: 99-21-3458GD CONTROLLED (<130/80)BP CONTROLLED (<130/80)[facility]: 84-31-5948RJ CONTROLLED (<130/80)BP CONTROLLED (<130/80)[facility]: 08-12-2022 End: 42-63-4130DDCTHRSGKM BLDCREATININE BLD Lab Routine Oropharnyx cancer (HCC) Expected: 08/12/2022, Expires: 10/12/2022[facility] Work Phone: Comment on above:Expected: 08/12/2022, Expires: 10/12/2022Start: 15-57-5343AQLEG-19 Vaccine (4 - Pfizer series)COVID-19 Vaccine (4 - Pfizer series)[facility] CenterStart: 80-23-1461JV CONTROLLED (<130/80)BP CONTROLLED (<130/80)[facility]: 64-19-3598TE CONTROLLED (<130/80)BP CONTROLLED (<130/80)[facility]: 07-16-2022 End: 56-72-4106Qpqnsfxboee [Units/volume] in Serum or PlasmaTSH BLD Lab Routine Cancer of base of tongue (HCC) Expected: 07/16/2022, Expires: 09/15/2022 [facility] Work Phone: Comment on above:Expected: 07/16/2022, Expires: 09/15/2022Start: 07-16-2022 End: 98-20-3459Itheigsbk (T4) [Mass/volume] in Serum or PlasmaT4/THYROXINE BLOOD Lab Routine Cancer of base of tongue (HCC) Expected: 07/16/2022, Expires: 09/15/2022[facility] Work Phone: Comment on above:Expected: 07/16/2022, Expires: 09/15/2022Start: 22-40-0292Moxrfbfzf vaccinationLUNG CANCER SCREENINGSelect Medical [facility]ty [facility]: 63-73-3216PGJ, Provider: Carmen Neely, Status: Pen, Time: 10:20 AMFUV, Provider: Carmen Neely, Status: Pen, Time: 10:20 AM[facility] [address] DO Work Phone: Start: 04-25-2022 End: 60-89-9131IWBAJIJOGR BLDCREATININE BLD Lab Routine Oropharnyx cancer (HCC) Expected: 04/25/2022 (Approximate), Expires: 06/25/2022[facility] Work Phone: Comment on above:Expected: 04/25/2022 (Approximate), Expires: 06/25/2022Start: 94-22-3999CABTSFWGPAOY (3 - PPSV23 if available, else PCV20)PNEUMOCOCCAL (3 - PPSV23 if available, else PCV20)[facility]: 32-75-4343LTLUFOPDAZAA (3 - PPSV23 or PCV20)PNEUMOCOCCAL (3 - PPSV23 or PCV20) [facility]: 20-19-4098YXLYRH NUC, Provider: KEL[place]Y HHVI NUCLEAR 01,[id number], Status: Pen, Time: 12:00 PMSTRESS NUC, Provider: KELSEY YOLANDAI NUCLEAR 01,[id number], Status: Pen, Time: 12:00 PMMP-[facility] [address] DO Work Phone: Start: 29-37-2039JRLS, Provider: KELSEY YOLANDAI ULTRASOUND 01,[id number], Status: Pen, Time: 10:45 AMECHO, Provider: KEL[place]Y YOLANDAI ULTRASOUND 01,[id number], Status: Pen, Time: 10:45 AMMurray County Medical Center 250 DO Work Phone: Start: 01-03-2022 End: 97-00-9147JFA W Auto Differential panel - BloodCBC + DIFF Lab Routine Malaise and fatigue Oropharnyx cancer (HCC) Expected: 01/03/2022, Expires: [facility] Work Phone: Comment on above:Expected: 01/03/2022, Expires: 03/05/2022tart: 01-03-2022 End: 36-96-8494Ospdrhnvtncat metabolic 2000 panel - Serum or PlasmaCOMP METABOLIC PANEL Lab Routine Malaise and fatigue Oropharnyx cancer (HCC) Expected: 01/03/2022, Expires: 03/05/2022[facility] Work Phone: Comment on above:Expected: 01/03/2022, Expires: 03/05/2022tart: 01-03-2022 End: 83-80-1497H1/FTI/T4UT4/FTI/T4U Lab Routine Malaise and fatigue Oropharnyx cancer (HCC) Expected: 01/03/2022, Expires: 03/05/2022[facility] Work Phone: Comment on above:Expected: 01/03/2022, Expires: 03/05/2022tart: 01-03-2022 End: 57-42-5818Cmcuchlhgvo [Units/volume] in Serum or PlasmaTSH BLD Lab Routine Malaise and fatigue Oropharnyx cancer (HCC) Expected: 01/03/2022, Expires: 03/05[facility] Work Phone: Comment on above:Expected: 01/03/2022, Expires: 03/05/2022tart: 87-17-5674Lrjhihzkx vaccinationINFLUENZA (#1)[facility] Start: 12-26-2021 End: 07-03-3099Iwmddjfzjgq [Units/volume] in Serum or PlasmaTSH BLD Lab Routine Oropharnyx cancer (HCC) Expected: 12/26/2021, Expires: 02/25/2022[facility] Work Phone: Comment on above:Expected: 12/26/2021, Expires: 02/25/2022tart: 12-26-2021 End: 30-58-7303Nzqixmgbc (T4) [Mass/volume] in Serum or PlasmaT4/THYROXINE BLOOD Lab Routine Oropharnyx cancer (HCC) Expected: 12/26/2021, Expires: 02/25/2022 [facility] Work Phone: Comment on above:Expected: 12/26/2021, Expires: 02/25/2022tart: 12-22-2021 End: 75-78-5890UK PET/CT SKULL-THIGH SUBSEQUENTNM PET/CT SKULL-THIGH SUBSEQUENT Radiology Routine Oropharnyx cancer (HCC) Expected: 12/22/2021, Expires: 12/21/2022[facility] Work Phone: Comment on above:Expected: 12/22/2021, Expires: 12/21/2022Start: 09-24-2021 End: 24-57-3559Yhrkp metabolic 2000 panel - Serum or PlasmaBASIC METABOLIC PNL Lab Routine Oropharnyx cancer (HCC) Expected: 09/24/2021, Expires: 11/24/2021 [facility] Work Phone: Comment on above:Expected: 09/24/2021, Expires: 11/24/2021tart: 09-24-2021 End: 81-33-0289GAW W Auto Differential panel - BloodCBC + DIFF Lab Routine Oropharnyx cancer (HCC) Expected: 09/24/2021, Expires: 11/24/2021[facility] Work Phone: Comment on above:Expected: 09/24/2021, Expires: 11/24/2021tart: 09-16-2021 End: 27-08-6651SKN W Auto Differential panel - BloodCBC + DIFF Lab Routine Lower abdominal pain Cancer of base of tongue (HCC) Nausea Expected: 09/16/2021, Expires: 11/16/2021[facility] Work Phone: Comment on above:Expected: 09/16/2021, Expires: 11/16/2021tart: 09-16-2021 End: 40-11-9786Mcctygyhmmrbp metabolic 2000 panel - Serum or PlasmaCOMP METABOLIC PANEL Lab Routine Lower abdominal pain Cancer of base of tongue (HCC) Nausea Expected: 09/16/2021, Expires: 11/16/2021[facility] Work Phone: Comment on above:Expected: 09/16/2021, Expires: 11/16/2021tart: 09-02-2021 End: [id number] W Auto Differential [facility] Work [facility]: Comment on above:Expected: 09/02/2021, Expires: 11/02/2021tart: 09-02-2021 End: [id number] metabolic 2000 panel - Serum or PlasmaNorwalk [facility] Hospital Work Phone: Comment on above:Expected: 09/02/2021, Expires: 11/02/2021tart: 08-26-2021 End: [id number] W Auto Differential panel - BloodCBC + DIFF Lab Routine 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) Oropharyngeal dysphagia Chronic obstructive pulmonary disease, unspecified COPD type (HCC) Heart disease Cancer related pain Anxiety and depression Severe protein-calorie malnutrition (HCC) Malaise and fatigue Hypertension, unspecified type Tachycardia Expected: 08/26/2021, Expires: 10/26/2021[facility] Work Phone: Comment on above:Expected: 08/26/2021, Expires: 10/26/2021tart: 08-26-2021 End: 48-47-6761Lunyrxufxxgxx metabolic 2000 panel - Serum or PlasmaCOMP METABOLIC PANEL Lab Routine 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) Oropharyngeal dysphagia Chronic obstructive pulmonary disease, unspecified COPD type (HCC) Heart disease Cancerrelated pain Anxiety and depression Severe protein-calorie malnutrition (HCC) Malaise and fatigue Hypertension, unspecified type Tachycardia Expected: 08/26/2021, Expires: 10/26/2021[facility] Work Phone: Comment on above:Expected: 08/26/2021, Expires: 10/26/2021tart: 08-12-2021 End: 82-09-4640QZQ W Auto Differential panel - BloodCBC + DIFF Lab Routine Cancer of base of tongue (HCC) Malaise and fatigue Expected: 08/12/2021, Expi res: [address] [place] [address] Work Phone: Comment on above:Expected: 08/12/2021, Expires: 10/12/2021tart: 08-12-2021 End: 33-98-6220Undfwnournnpd metabolic 2000 panel - Serum or PlasmaCOMP METABOLIC PANEL Lab Routine Cancer of base of tongue (HCC) Malaise and fatigue Expected: 08/12/2021, Expires: [address] [place] [address] Work Phone: Comment on above:Expected: 08/12/2021, Expires: 10/12/2021tart: 08-12-2021 End: 86-04-4379H9/FTI/T4UT4/FTI/T4U Lab Routine Cancer of base of tongue (HCC) Malaise and fatigue Expected: 08/12/2021, Expires: 10/12/2021[facility] Work Phone: Comment on above:Expected: 08/12/2021, Expires: 10/12/2021tart: 08-12-2021 End: 14-01-3218Hunbrqbywsz [Units/volume] in Serum or PlasmaTSH BLD Lab Routine Cancer of base of tongue (HCC) Malaise and fatigue Expected: 08/12/2021, Expires : 10/12/2021[facility] Work Phone: Comment on above:Expected: 08/12/2021, Expires: 10/12/2021tart: 08-01-2021 End: 41-49-3811CTM W Auto Differential panel - BloodCBC + DIFF Lab Routine Cancer of base of tongue (HCC) Malaise and fatigue Expected: 08/01/2021, Expi res: 10/01/2021[facility] Work Phone: Comment on above:Expected: 08/01/2021, Expires: 10/01/2021tart: 08-01-2021 End: 64-20-0015Fiwdpnttgrgeb metabolic 2000 panel - Serum or PlasmaCOMP METABOLIC PANEL Lab Routine Cancer of base of tongue (HCC) Malaise and fatigue Expected: 08/01/2021, Expires: 10/01/2021[facility] Work Phone: Comment on above:Expected: 08/01/2021, Expires: 10/01/2021tart: 08-01-2021 End: 56-11-1941Y7/FTI/T4UT4/FTI/T4U Lab Routine Cancer of base of tongue (HCC) Malaise and fatigue Expected: 08/01/2021, Expires: [address] [place] [address] Work Phone: Comment on above:Expected: 08/01/2021, Expires: 10/01/2021tart: 08-01-2021 End: 05-59-9642Ftdhhhprwwp [Units/volume] in Serum or PlasmaWHIDBEYHEALTH [facility] BLD Lab Routine Cancer of base of tongue (HCC) Malaise and fatigue Expected: 08/01/2021, [facility] : [facility]: Comment on above:Expected: 08/01/2021, Expires: 10/01/2021tart: 20-33-5345GAPDC-19 VACCINE (4 - Booster)COVID-19 VACCINE (4 - Booster)[facility]: 33-64-4949DDOTV-19 VACCINE (4 - Booster)COVID-19 VACCINE (4 - Booster)[facility]: 39-54-5212NBCGR-19 VACCINE (4 - Booster)COVID-19 VACCINE (4 - Booster)[facility]: 81-42-2142PRA Vaccine (1 - 1-dose 60+ series)RSV Vaccine (1 - 1-dose 60+ series)[facility]: 70-10-4048DMGJYAOC VACCINE (2 of 2)SHINGRIX VACCINE (2 of 2) [facility]: 36-37-1252Pibtju Vaccines (2 of 2)Zoster Vaccines (2 of 2)[facility] CenterStart: 50-58-5432TGMGGESC CANCER SCREENING DISCUSSIONPROSTATE CANCER SCREENING DISCUSSIONSelect [facility]htart: 09-19-2015 Prostate specific antigen measurementProstate Cancer Screening Discussion [facility]: 50-93-0653IQLTERTW VACCINE (1 of 2)SHINGRIX VACCINE (1 of 2)[facility]: 78-82-1939IOQBDSUIF (FIT-DNA)COLOGUARD (FIT-DNA) [facility]: 86-83-1629RgypqjuzxaiGCFFMUYWPTYDzixmglia ClinicStart: 26-24-3862YZPGDLQDZN CANCER SCREENINGCOLORECTAL CANCER SCREENINGK[facility] Start: 05-56-4338AA COLONOGRAPHYCT COLONOGRAPHYSelect [facility]htart: 2005 FECAL OCCULT BLOODFECAL OCCULT BLOODSelect [facility]ty [facility]htart: 80-14-9869Dhkzektx specific antigen measurementProstate Cancer Screening DiscussionK[facility] Start: 94-11-7001Ojhkazadt for malignant neoplasm of colonSelect [facility]ty [facility]: 09-99-1926OEIADQDHSTOIAUTETTBOIWVJVGApmvilxkb ClinicStart: 50-99-1667Xcuag 1996 panel - Serum or PlasmaLipid ScreeningSelect Medical [facility]ty [facility]art: 26-76-2834Oykow panelLipid ScreeningSelect [facility]ty [facility]art: 00-91-8809XERNH SCREENLIPID SCREEN [facility]: 18-47-6059Gwdvqgalyr acid therapyALPHA-1 ANTITRYPSIN DEFICIENCY SCREENINGSelect [facility]: 26-19-2766Xhidm microalbumin profile DTAP,TDAP,TD (1 - Tdap)[facility]: 89-06-3376FWVGPF PCP TEAM CHRONIC DISEASE VISITANNUAL PCP TEAM CHRONIC DISEASE VISITSelect [facility]: 64-21-3150Qpzpwcw ScreeningAnxiety ScreeningSelect [facility]ty [facility]: 18-32-9582PE CONTROLLED (<130/80)BP CONTROLLED (<130/80)[facility]: 1978 Diabetes mellitus screeningDiabetes ScreeningCincinnati Children's [facility] Start: 60-36-7569QLGKVSSVA C SCREENINGHEPATITIS C SCREENINGK[facility] Start: 36-52-2531Fsprfrqmq C screeningHepatitis C ScreeningCincinnati Children's Hospital Medical CenterStart: 31-37-5166MMO SCREENINGHIV SCREENINGSelect [facility]: 42-81-4954ZJU screeningHIV ScreeningSelect [facility]ty [facility]art: 87-87-4346FNTUGYZNKS SPIROMETRYSelect Medical Specialty [facility]: 60-58-2098Jywunirlwv ScreeningDepression ScreeningHolmes County [facility] SystemStart: 20-43-5899VES Vaccines (1 of 1 - Standard series)MMR Vaccines (1 of 1 - Standard series)[facility] Start: 51-22-5608LKX screeningHIV ScreeningCincinnati Children's [facility] Start: 03-49-6811Xszij panelLipid PanelCincinnati Children's Hospital Medical CenterStart: 05-18-1961Medicare Annual Wellness (AWV)Medicare Annual Wellness (AWV)[facility]: [facility]1961Medicare Annual Wellness VisitMedicare Annual Wellness Visit (AWV)[facility] CenterStminneapolis: 57-06-5207Kjfuowukl for malignant neoplasm of colonUnCincinnati Children's Hospital Medical CenterStart: 07-06-8355Vooiub Use: CardiovascularStatin Use: CardiovascularProMedica Health SystemStart: 53-01-0435Kertpfj CounselingTobacco CounselingHolmes County Joel [facility] Hospital SystemBLOOD CULTURE 1BLOOD CULTURE 1 Lab Routine 08/30/2024 3:09 PM EDTNOMS HealthcareBLOOD CULTURE 2BLOOD CULTURE 2 Lab Routine 08/30/2024 4:10 PM EDTNOMS Healthcare End: 20-35-7609DO CHEST W IVCONCT CHEST W IVCON Radiology Routine Oropharnyx cancer (HCC) 1 Occurrences starting 02/25/2022 until 03/27/2023[facility] Work Phone: Comment on above:1 Occurrences starting 02/25/2022 until 03/27/2023 End: 56-02-5647Zq soft tissue neck w/contrast materialCT NECK SOFT TISSUE W IVCON Radiology Routine Oropharnyx cancer (HCC) 1 Occurrences starting 022 until 03/27/2023[facility] Work Phone: Comment on above:1 Occurrences starting 02/25/2022 until 03/27/2023 End: 40-69-7446PQD+CT Guidance for localization of tumor of Skull base to mid-thigh-- W 18F-FDG IVNM PET/CT SKULL-THIGH SUBSEQUENT Radiology Routine Cancer of base of tongue (HCC) Malaise and fatigue 1 Occurrences starting 08/18/2023 [facility] Work [facility]: Comment on above:1 Occurrences starting 08/18/2023 until 09/16/2024PT PLAN OF CARE CERTIFICATIONPT PLAN OF CARE CERTIFICATION Procedures Routine Current smoker Physical deconditioning Ordered: 08/09/2021 [facility] Work Phone: Comment on above:Ordered: 08/09/2021 End: 09-24-8820Zrcymkruzw exam abdomen 2 viewsXR ABDOMEN 2V ROUTINE SUPINE W UPRIGHT/DECUB/CTL Radiology Routine Lower abdominal pain 1 Occurrences starting 09/16/2021 until 10/16/2022[facility] Work Phone: Comment on above:1 Occurrences starting 09/16/2021 until 10/16/2022 End: 24-47-0053VZ Shoulder - right 3 ViewsXR SHOULDER GENERAL 3V OR MORE AP/TRUE AP/OTHER RIGHT Radiology Routine Pain 1 Occurrences afwruowu25/04/2025 until [facility] Work Phone: Comment on above:1 Occurrences starting 06/07/[address] [place] [address] Immunizations Immunization DateImmunizationNotesCare UmhsulyxKllcpdjb11-23-1213ttyzvaa toxoid, reduced diphtheria toxoid, and acellular pertussis vaccine, nadiaLisa Zarate [employer] Work Phone: [facility] HospitalZxhgctmehm76-10-0173idturwowh, seasonal, injectable, preservative freeGildardo Lacy MD Work Phone: noRay County Memorial HospitalHqabinedtl24-59-7543hdpdyrtlu virus vaccine, unspecified formulationGildardo Lacy MD Work Phone: noRay County Memorial HospitalQijcirpkip59-04-8456johfenfbmps syncytial virus (RSV) vaccine, adjuvanted (AREXVY)Esdras Cash MD Work Phone: [facility] CenterZwiuli92-99-4962ghurli vaccine recombinant Esdras Cash MD Work Phone: [facility] CenterHzbmrq34-81-9970Zyjddbwtj, injectable, Madin Nunnelly Canine Kidney, preservative free, quadrivalentEsdras Cash MD Work Phone: [facility] CenterVkhtug93-69-6459xpdlhtkbr virus vaccine, unspecified formulationDENIA Carpenter MD Work Phone: [facility] CenterUudpbl57-05-9242mpvuujsfq, injectable, quadrivalent, preservative Marilu Cash MD Work Phone: [facility] CenterYzmcxj15-86-6738nicqmzhzk virus vaccine, unspecified Jerry Carpenter MD Work Phone: [facility] CenterKxfmxo13-14-0892qjytyrsqr, injectable, quadrivalent, preservative Marilu Cash MD Work Phone: [facility] CenterMxyjji50-19-4631NCCHN-03 vaccine (UNSPECIFIED)Esdras Cash MD Work Phone: [facility] CenterHsetee73-07-7816XAKAN-09 vaccine, age 12+ yr (PFIZER-BIONTECH - PURPLE TOP)Nathaly Biggs APRN.SPOTTER Work Phone: [facility] CenterOmclph85-86-4902ZPVID-62 vaccine, age 12+ yr (PFIZER-BIONTECH - PURPLE TOP)Esdras Cash MD Work Phone: [facility] CenterGjyhul51-12-9937YMJWX-60 vaccine (UNSPECIFIED)Esdras Cash MD Work Phone: [facility] CenterAaujbo26-06-0243ISUDZ-63 vaccine, age 12+ yr (PFIZER-BIONTECH - PURPLE TOP)Esdras Cash MD Work Phone: [facility] CenterGzrfvj49-57-0684qlvcvozxq, injectable, quadrivalent, preservative Marilu Cash MD Work Phone: [facility] CenterVniadb90-56-1358ioycpglra, seasonal, injectableEsdras Cash MD Work Phone: [facility] CenterDjgytx25-18-2821stukvsksg, injectable, quadrivalent, preservative Marilu Cash MD Work Phone: [facility] CenterDmizzx34-05-0690nigawxb toxoid, reduced diphtheria toxoid, and acellular pertussis vaccine, adsorbedLori Andre City HospitalUllozg15-26-8388avmwkd vaccine recombinantLori Andre [facility] County HospitalTbxmbt85-67-0162cznafmjugi skin test; purified protein derivative solution, intradermalLisa Elliot LY Work Phone: [facility] HospitalQzockzpbbw80-00-5898tzxflfcpztn influenzae type b vaccine, PRP-T conjugateEsdras Cash MD Work Phone: [facility] CenterRxdspt13-63-7907dbevwtkmyilhu B vaccine, recombinant, OMV, adjuvantedEsdras Cash MD Work Phone: [facility] CenterLsmzvv43-64-4472atnmkkkskqjmr oligosaccharide (groups A, C, Y and W-135) diphtheria toxoid conjugate vaccine (MCV4O)Esdras Cash MD Work Phone: [facility] CenterZfbsjw05-39-1200hnwveuyfnwcjb polysaccharide (groups A, C, Y and W-135) diphtheria toxoid conjugate vaccine (MCV4P)Esdras Cash MD Work Phone: [facility] CenterFjpbbt18-51-5765swjkhsajeqdo conjugate vaccine, 13 valentEsdras Cash MD Work Phone: [facility] CenterYkwymx69-81-1727lunhwfhcs, injectable, quadrivalent, preservative freeEsdras Cash MD Work Phone: [facility] CenterSiftuj98-27-1798dplqmeywg, injectable, quadrivalent, contains preservativeEsdras Cash MD Work Phone: [facility] CenterZxpenq59-79-4896omtmpejdupdo polysaccharide vaccine, 23 valentEsdras Cash MD Work Phone: [facility] Payers DatePayer CategoryPayerPolicy [id number] Health InsuranceDEANGEL MEDICAL CENTERO [id number] [id number] (Managed Care) [id number] 2020MedicareHUMANA MEDICARE HUMANA MEDICARE PPO [id number] 2019-Present [phone] [place] [id number] [id number] 2019Medicare HMO HUMANA MEDICARE [id number] 2018Medicare [id number] Health [id number] [id number] 2..1.764991.3.579.[id number] 2..1.148622.3.579.2.77974-86-7400Ecvkgdd55000301 2.0.1.476663.3.579.2.25930-50-4468Llvqwwd83078429 2.0.1.729813.3.579.2.15613-07-1624Ynppjgs97473671 2.16.840.1.662023.3.57[id number] 2.16.840.1.573875.3.57[id number] 2.16.840.1.518058.3.579.2.14979-01-1242Yssalbm0551010 2.16.840.1.399413.3.579.2.15801-55-7883Nnhrpke4045135 2.16.840.1.837522.3.579.2.48826-45-5771Gcseekx4729929 2.16.840.1.965838.3.579.2.59101-44-8980Xjhlbml3190102 2.16.840.1.660984.3.579.2.18253-17-5374Iajhklz7267775 2.16.840.1.886620.3.579.2.63790-52-4902Wedpota5439528 2.16.840.1.778005.3.579.2.98788-30-6641Scobejc7039194 2.16.840.1.576165.3.579.2.83774-09-5640Efgiimm6791644 2.16.840.1.368695.3.579.2.93333-74-6082Amevlgn18436975 2.16.840.1.245863.3.579.2.669093-90-1816Zebpjzn419464204 2.16.840.1.143614.3.579.2.953647-77-9459Ntbwdbg752806137 2.16.840.1.690887.3.579.2.408165-83-4391Cigyvio136337821 2.16.840.1.758927.3.579.2.505352-18-9269Bhztffn583298613 2.16.840.1.892286.3.579.2.308755-97-9058Jzgqgmj601651103 2.16.840.1.590168.3.579.2.737172-24-5620Omgtyqz329079655 2.16.840.1.462854.3.579.2.976055-00-4677Kylbvvi320568768 2.840.1.557272.3.579.2.749643-49-6491Ewpddua494630956 2.840.1.491546.3.579.2.660662-31-5434Zmcjxwl194525154 2.840.1.801689.3.579.2.004487-55-7650Dairdwv80103121 2.840.1.350779.3.579.2.342304-91-7277Rdtenic85034242 2.840.1.402401.3.579.2.917951-31-7060Xcwiusg39190955 2.840.1.459621.3.579.2.260465-45-6011Cpuwdpk97967055 2.840.1.868919.3.579.2.021245-44-4202Nqlygro32589745 2.840.1.194827.3.579.2.024785-39-6781Crowjwn0760189 2.840.1.202446.3.579.2.524951-27-2530Qnufors5624392 2..840.1.638010.3.579.2.381799-54-8217Tzaczfh3559305 2.16840.1.748908.3.579.2.043929-11-5383Plkswti2535683 2..840.1.340985.3.579.2.910360-47-1221Rkceszd2213298 2.16.840.1.822122.3.579.2.751491-33-6134Ntlwxbt2141964 2..840.1.331056.3.579.2.633653-31-9540Jvyzlrt1994202 2..840.1.948944.3.579.2.852972-86-0845Ryuerlk0156463 2..840.1.030107.3.579.2.953761-35-8451Tbzzwcs1014264 2..840.1.815306.3.579.2.445691-54-9828Tqtnccj0398997 2..840.1.620415.3.579.2.235520-12-8729Bodcysb645998901 2..840.1.588615.3.579.2.19264-73-7001Idpytur Health BrfouyqmlB88568708Kyybbaz Uzqbkab041006066 j32i7a86-011d-0666-4374-y874415426c6Ebtbkhh67088672 2.0.1.921058.3.579.2.531 Social History DateTypeDetailFacilityStart: 07-27-2020 End: 11-54-7124Vmhsipa smoking status NHISSmokes tobacco dailyKettering Health [facility] Medical Center Start: 25-13-3869Uosnwbd of tobacco useCigarette SmokerSelect Medical Specialty Hospital [facility]htart: 07-27-2020 End: 17-67-0819Qmrkxkjwgo smoked current (pack per day) - Hcaavsdr4Pvkabdrft ClinicComment on above:1 pack of cigarettes every 4-5 days;quit 05/22/22;Start: 07-27-2020 End: 66-43-0095Spkyyrt use and exposureSmokeless tobacco non-userSelect Medical Specialty Hospital [facility] Northtart: 07-30-2021 End: 87-79-2416Mlkirzm intakeCurrent drinker of alcohol (finding)[facility]: 32-27-7550Bfafovd SDOH Alcohol Commentnot weeklyKettering Health – Soin Medical Center Start: 06-11-2021 End: 54-96-3855Bqswpid Commentdown to 05/13 ppdSelect Medical Specialty Hospital [facility] Northtart: 1960 Sex Assigned At BirthNot on fileSelect Medical Specialty Hospital - [facility] Northtart: 02-18-2021 End: 54-09-6305Nyslymae to SARS-CoV-2 (event)Not sureKettering Health – Soin Medical CenterHistory of tobacco usePassive smokerSelect Medical Specialty Hospital [facility] Northtart: 09-16-2022 End: 61-25-1500Qlboego use panelSelect Medical Specialty Hospital - [facility] Northtart: 07-16-2020 End: 82-53-3259Emuts Depression Screening Gjvayovgud7Lwpbcjhxs ClinicStart: 05-06-2023 End: 81-25-7188Pmztrej intakeLifetime non-drinker (finding)[facility] Work Phone: Start: 80-24-3901Egklvqt smoking status NHISSmoker (finding)[facility] Systemtart: 90-16-3462Utg Assigned At MaleHolzer Health Systemtart: 46-92-1621Thmjqwc Commentrarely [facility]: 19-83-6962Wxgrhxx Jcevrsc50-93 cigarettes a dayMOUNTAIN POINT MEDICAL CENTER HealthcareStart: 17-78-6623Sdztduz CommentCaffine intake: noneNOMS Healthcare Start: 67-53-6166Epgyscz smoking status NHISEx-smokerSelect Medical Specialty Hospital [facility]htart: 19-19-7294Ukxcnlu CommentQuit 06/12/24[facility]: 11-02-2023 End: 19-91-2986Mvagfasvn beverage intakeEx-drinker (finding)[facility] SystemStart: 04-08-4138Rdzwdgo Comment1 pack every 5 days reported 08/15/2021 [facility] SystemStart: 84-90-8314Vfuklmi Comment01/19/18, sober as can be [facility] OpTrip SystemStart: 77-82-0867EipNnnx (finding)[facility] Medical Equipment Procedure CodeEquipment CodeEquipment Original TextEquipment IdentifierDatesStnt [facility] Suresha [id number] Rpl [id number] - [id number], [id number] FDAStart: 58-46-9574Hdxc [facility] Suresha [id number] Rpl [id number]+Cmt - [id number] - [id number]: 09-28-2019 Functional Status VvsuQcocrcfhutEdywmnIkqkuddb61-33-5283Tglddvf Health Questionnaire 2 item (PHQ- 2) [Reported][facility] HospitalBggljigltv40-62-0011XJG-5IIU2RPGSER Mild (5-9)[place] [address] DO Work Phone: [phone] you deaf, or do you have serious difficulty hearingNo 06/28/2021 12:57 PM Loree Matias RN [facility] HospitalYznolh04-59-7995Hjy you blind, or do you have serious difficulty seeing, even when wearing glassesNo 06/28/2021 12:57 PM Loree Matias RN [facility]02-25-2022Do you have serious difficulty walking or climbing stairsNo 06/28/2021 12:57 PM Loree Matias RN [facility] 75-03-1502Yo you have difficulty dressing or bathingNo 06/28/2021 12:57 PM Loree Matias RN [facility] HospitalDeqetr57-35-3322Nydjous of a physical, mental, or emotional condition, do you have difficulty doing errands alone such as visiting a physician's office or shoppingNo 06/28/2021 12:57 PM Loree Matias RN [facility]CMer[facility] Mental Status MrtxYrdpzeheewDkgylhGksgxqxn13-62-4471Uouwmhn of a physical, mental, or emotional condition, do you have serious difficulty concentrating, remembering, or making decisionsNo 06/28/2021 12:57 PM Loree Matias RN [facility] Clinical Notes 11-27-2014 to 03-14-2025 Note Date & TckyPsujVgqvkltu78-86-4859 NoteHNO ID: [id number] Author: CYNTHIA MEADOWS RT(R) Service: ? Author [...] PATIENT PRESENTS WITH AN IMPLANTABLE OR ATTACHED LIDAR TECHNICIAN: No RADIOLOGY DEPARTMENT: CT; Exam(s) Completed: Chest Abdomen Pelvis. Anesthesia: No PERIPHERAL IV DATA: Not applicable SIGNED BY: RT Jose Alfredo(R) March 14, 2025 2:02 [facility]11-03-2025 NoteHNO ID: [id number] Author: AURA LOGAN RD Service: ? Author [...] of 85 grams protein per day and 1558-6578 kcals per day Recommend 3-4 protein shakes per day. Trial Boost [facility],samples provided strawberry and vanilla. Can use [...] Ensure or Premier protein. D: Chicken wings, sinhala fries, or sobeida beef salad: beef, cucumber, tomato cashews and rice Sn: Often does not eat snacks. Likes arabic peanuts and cashews Fluids: 40 of sports [...] by 35-40 kcal/kg Estima (more content not included)...[facility]11-03-2025 Note Education (NUTRSA) ALEJO FLOYD ([id number]) 1960 M Date Time Provider Department 03/06/25 10:30 AM AURA LOGAN Reason for Visit: Nutrition Assessment [1591] Primary Visit Diagnosis:Head and neck cancer (HCC) [C76.0] Other Visit Diagnosis:Severe protein-calorie malnutrition (HCC) [E43] Order(s):CONSULT TO ONCOLOGY NUTRITION [1973935] Order #: [id number]: 1 During your visit today, we recorded [...] needed. Encounter Status:Closed by AURA LOGAN on 03/06/25[facility] 02-21-2025 NoteHNO ID: [id number] Author: Kathrine CARPENTER MD Service: ? 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 Subjective Patient ID: Alejo Floyd is a 64 y.o. male who presents for Foot Pain (64 yo [employer] presents today for concerns of left foot pain. Pt had xrays with [employer] back in july. Patient had injured his [...] vertebra (HCC) COPD (chronic obstructive pulmonary disease) ([facility]) COVID-19 12/28/2020 HTN (hypertension) Hx of transient ischemic attack (TIA) (last ~2015) Incisional hernia Major depressive disorder Mass of epiglottis Mass of tongue 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[facility]) Pharyngeal lesion Right otitis media with effusion Seasonal allergic rhinitis due to pollen SVT (supraventricular tachycardia) ([facility]) Tongue cancer ([facility]) Medications Current Outpatient Medications: albuterol [...] each day, Disp: 60 each, Rfl: 5 Excrscynxff-Lwyzmvnjt-Vzfcsj (Trelegy Ellipta) 100-62.5-25 MCG/ACT aerosol powder , [...] understanding. Jl Shepherd DPM documented in this [facility]08-29-2025 Telephone encounter Note* Telephone Encounter - Kaela Negrete DO - 12/30/2024 4:12 PM EDT Erx sent [facility] [id number] Miscellaneous Notes* Telephone Encounter - Kaela Negrete [...] - Kenan Any questions call Alejo at [phone] documented in this [facility]08-29-2025 Telephone encounter Note* Telephone Encounter - Cr Aldrich - 12/30/2024 4:00 PM EDT Alejo called - he is asking for a script or new sample of recent inhaler given to him. (I could not understand the name of the inhaler) I apologize, I asked him to spell it but he wasn't home. [facility] Any questions call Alejo at [phone] [facility] HospitalWdmoqpbvtc44-38-5032 Telephone encounter Note* Telephone Encounter - Cr Aldrich - 12/21/2024 4:39 PM EDT Medical service co called - they need an actual script sent - she said it needs to have , POC setting at [address] [facility] HospitalXfuafjcnrs14-65-6052 Miscellaneous Notes* Telephone Encounter - Cr Aldrich - 12/21/2024 4:39 PM EDT Medical service co called - they need an actual script sent - she said it needs to have , POC setting at [address] documented in this encounterSt. Louis Children's HospitalJkhdpnbiis97-14-6410 History of Present illness Narrative* Kaela Negrete, [...] I will write an order to the [employer] for a POC at today's office visit. Tobacco use -- he does continue to smoke on a daily basis. He does have a 55 pack-year history of smoking. We did have a 4 minute discussion regarding the importance of smoking cessation at today's office visit. Follow up in about 3 months (around 03/23/2025) for COPD. Kaela Negrete DO documented in this encounterSt. Louis Children's HospitalCvierfjdnv28-68-1052 NoteHNO ID: [id number] Author: Kathrine CARPENTER MD Service: ? 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 Doing fairly well. No evidence of recurrence. Stable right neck soft tissue changes from prior radiation treatment/retreatment. Continue conservative care. Plan to see patient back in 6 months. Signed by: Kathrine Carpenter MD cc: Gildardo Lacy MD ([facility]) [address] [place] [address] Dr. Bagley documented in this encounterK[facility]08-07-2025 NoteSubjective Patient seen today for post operative [...] the past 36 hours). No follow-ups on file.[facility]07-18-2025 NoteARCH CEREBRAL CAROTID ANGIOGRAM Post Procedure Note Date: 11/18/2024 Location: [facility] (Cath) Name: Alejo Floyd, : 1960, Diagnosis Pre-op Diagnosis * Symptomatic stenosis of right carotid artery [I65.21] * Carotid stenosis, bilateral [I65.23] * PAD (peripheral artery disease) [I73.9] Surgeons Primary: Carolyn Mcfarland MD Procedures CAROTID ANGIOGRAM Procedure Summary Anesthesia: Moderate Sedation Estimated Blood Loss: 20 mL Total IV Fluids: mL Drains: * None in log * Staff: Caregivers Non Medical: Darien Golden RN Scrub Person: RT Teresa Box Truck Washer: RT Carlos Eduardo Invasive Nurse: Mac Shaver [...] right common femoral artery. Micropuncture then 6 Luxembourger sheath inserted. A wire and pigtail catheter [...] PACU - hemodynamically sta (more content not included)...[facility]07-17-2025 NoteSpoke with Bartolo and he stated he spoke Cassabianca and stated no clearance was need for procedure scheduled for 11/18/24Un[facility]24 NoteDEPARTMENT OF VASCULAR SURGERY HPI Alejo Floyd is a 64 y.o. male who presents today for follow-up evaluation for carotid stenosis and PAD. With respect to carotid disease patient does report that in May and then again in July this past year he developed sudden onset left-sided leg weakness and was seen at [facility]. He reports he was diagnosed with a TIA both times. I obtained records from [place] and appears he was diagnosed with a [...] CTA and MRI from July 2024 at [place]. Patient has over 50-69% stenosis which has been consistent with 2 different ultrasounds with MRI evidence of subacute stroke on the right via MRI. Reviewed case with Dr. Mcfarland, at this time we will proceed with transfemoral carotid/cerebral angiogram with carotid stenting (with distal embolic protection). Given his hostile neck transfemoral approach most appropriate. Echo done at [place] in July EF 50-55% no significant valvular disease His PAD is stable. He has known LLE moderate occlusive disease but is free of symptoms. Will continue medical management GDMT: DAPT, statin If recurrent left-sided symptoms occur patient advised to present to the ED immediately Electronically signed by: Vale Chirinos PA-C Physician Waste Treatment Operator Vascular and Wound Surgery 10/31/2024 This note was created with the assistance of a speech-recognition program. While intending to generate a document that accurately reflects the content of the encounter, no guarantee can be provided that every mistake has been identified and corrected by editing [1] No past medical his (more content not included)...[facility]06-17-2025 Telephone encounter Note* Telephone Encounter - Gildardo Lacy MD - 10/18/2024 3:[address] [facility] HospitalXogjicdsmk54-09-3228 Miscellaneous Notes* Telephone Encounter - Gildardo Lacy MD - 10/18/2024 3:54 PM EDT * Telephone Encounter - Gildardo Lacy MD - 10/17/2024 4:18 PM EDT New referral in chart. * Telephone Encounter - NANCY HOOD - 10/17/2024 3:19 PM EDT Patient called requesting referral to new jewelry internship due to Samsa leaving. clm documented in this encounterSt. Louis Children's HospitalVwrljcbuiq08-37-3329 Telephone encounter Note* Telephone Encounter - Gildardo Lacy MD - 10/17/2024 4:18 PM EDT New referral in chart. 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 clm [facility] HospitalPinfffwjti29-55-3509 History of Present illness Narrative* Gildardo Lacy [...] Ambulatory referral to Pulmonology documented in this encounterSt. Louis Children's HospitalAsvvfwoxsa38-87-7052 History of Present illness Narrative* Carmen Neely [...] smoking. He follows with vascular surgery in [place]. He is on dual antiplatelet therapy and on statin. He has not had any recent lab data but had a visit to [place] emergency department for what he described as [...] bottles Assessment/Plan 1. PVD (peripheral vascular disease) ([facility]) Follow Up In Cardiology 2. [...] exam, discussion and plan. documented in this encounterCincinnati [facility] Work Phone: 1(207) 774-218705-12-2025 Instructions* Patient Instructions* Moon Kan LPN - [...] time of your visit. documented in this encounterCincinnati [facility] Center Work Phone: 1(336) 674-237605-08-2025 History of Present illness Narrative* Gildardo Lacy MD - 09/08/2024 12:01 PM EDTAssociated Problem(s): Pneumonia Symptoms improved and monitor. * Gildardo Lacy MD - 09/08/2024 12:00 PM EDTAssociated Problem(s): COPD (chronic obstructive pulmonary disease) ([facility]) Recent exacerbation but improved. Complete [...] improved and monitor. Acute hypoxic respiratory failure ([facility]) Recent hypoxia but today normal SpO2 on room air. Continue to monitor. documented in this encounterSt. Louis Children's HospitalEkgxbibngy03-01-8745 Telephone encounter Note* Telephone Encounter - Farida Haynes RN - 09/06/2024 10:21 AM EDT VM left with MM message. Farida Haynes RN [facility]05-06-2025 Miscellaneous Notes* Telephone Encounter - Farida Haynes RN - 09/06/2024 10:21 AM EDT VM left with MM message. Farida Haynes RN * Telephone Encounter - Anthony Weaver PA-C - 09/06/2024 10:16 AM EDT This patient no longer follows with us. He should see his PCP for refills. Anthony Weaver PA-C documented in this encounterKettering Health [facility]05-06-2025 Telephone encounter Note * Telephone Encounter - Anthony Weaver PA-C - 09/06/2024 10:16 AM EDT This patient no longer follows with us. He should see his PCP for refills. Anthony Weaver PA-C [facility]05-05-2025 History of Present illness Narrative* Mireya Restrepo MD - 09/05/2024 10:00 AM EDT Images from the original note were not included. [address] [place] [address] Patient: Alejo Floyd Date of : 1960 [...] contact. They have also consented to using [employer] as a communications platform, understanding the privacy limitations, and telehealth and HIPAA waivers as established in the CMS expansion of telehealth benefits under the 1135 waiver authority and the Coronavirus Preparedness and Response Supplemental Appropri ations Act Dated July and as summarized in July 19, 2019 [facility] FAQ on the Coronavirus (COVID-19) public health emergency. History of Present Illness: The patient is a 64 y.o. male, an established patient, and is following up for post stroke care. The patient was last seen as a tele stroke consult, when she was admitted at [facility] in July 2024. Details of the hospitalization [...] to display PTSD: No data to display [place]: No data to display DION-10: No data [...] 09/21/2019 Added automatically from request for surgery [id number] Rapid heart beat Family History Problem Relation Age of Onset Aortic aneurysm Mother Breast cancer Mother Diabetes Mother Diabetes Brother Past Surgical History: Procedure Laterality Date Angiogram extremity left N/A 09/28/2019 Performed by Johan Najera MD at [facility] Aortography abdominal N/A 09/28/2019 Performed by Johan Najera MD at [facility] CHOLECYSTECTOMY COLONOSCOPY HERNIA REPAIR 2007 Xs Percutaneous angioplasty/stent femoral-popliteal left 09/28/2019 Performed by Johan Najera MD at [facility] SPLENECTOMY, TOTAL 01/19/2018 Current [...] Chronic obstructive pulmonary disease, unspecified COPD type ([facility]) History of throat cancer Tobacco dependence Alcoholism ([facility]) Clinical impression: Multifocal right Anterior [...] As needed Mireya Restrepo MD Vascular Neurologist [facility] Neurology ([facility]) Total time spent was 35 minutes: Preparing [...] you for your understanding. documented in this encounterThe [facility]04-02-[facility] History of Present illness Narrative* EDDI [...] brought himself here today. * Rashida Zarate, COMMERCIAL REAL ESTATE BROKER - 08/03/2024 10:00 AM EDT Images from [...] Chronic migraine Compression fracture of L1 vertebra ([facility]) COPD (chronic obstructive pulmonary disease) ([facility]) COVID-19 12/28/2020 HTN (hypertension) (CMS/HCC) Hx of transient ischemic attack (TIA) (last ~2015) Incisional hernia Major depressive disorder (CMS/HCC) Mass of epiglottis Mass of tongue 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[facility]) Pharyngeal lesion Right otitis media with effusion Seasonal allergic rhinitis due to pollen SVT (supraventricular tachycardia) ([facility]) Tongue cancer ([facility]) Past Surgical History: Procedure Laterality [...] SURGERY Right 11/28/2022 NICO[facility] ONLY - DR CEHN family history includes Anemia in his maternal [...] up to and including 10[facility]25/24) [facility] keep appts with [...] changes Current meds: metoprolol documented in this [facility]04-02-2025 Instructions* Patient Instructions* Rashida Zarate NP - 08/03/2024 10:00 AM EDT No med dose changes documented in this [facility]03-25-2025 Miscellaneous Notes* Telephone Encounter - Deisy Justin - 07/26/2024 12:23 PM EDT What is the reason for the call? [facility] called to schedule appt in STROKE unit. If appointment requested, what is the reason for the appointment? STROKE Is there a referral in the chart? No Were they seen in the hospital? Yes What hospital were they seen at? [facility] What is a good call back number? Call patient back: [phone] * Telephone Encounter - EMILIE Cheng - 07/26/2024 12:23 PM EDT Avis already sent a request for FU on this patient. She advised FU in [place]. * Telephone Encounter - Matilde Biggs CMA - 07/26/2024 12:23 PM EDT Scheduled tele-visit as it looks like [place] is fully booked. documented in this [facility]03-25-2025 Telephone encounter Note* Telephone Encounter - Deisy Justin - 07/26/2024 12:23 PM EDT What is the reason for the call? [facility] called to schedule appt in STROKE unit. If appointment requested, what is the reason for the appointment? STROKE Is there a referral in the chart? No Were they seen in the hospital? Yes What hospital were they seen at? [facility] What is a good call back number? Call patient back: [phone] [employer] [id number] Telephone encounter Note* Telephone Encounter - EMILIE Cheng - 07/26/2024 12:23 PM EDT Avis already sent a request for FU on this patient. She advised FU in [place]. [facility] [employer] [facility] Work Phone: 1(643) 294-658903-25-2025 Telephone encounter Note* Telephone Encounter - Matilde Biggs CMA - 07/26/2024 12:23 PM EDT Scheduled tele-visit as it looks like [place] is fully booked. 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 Bagley documented in this encounterKettering Health [facility]02-18-2025 NoteHNO ID: [id number] Author: Kathrine CARPENTER MD Service: ? 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 [facility]02-07-2025 History of Present illness Narrative* Hebert Miguel MD - 06/10/2024 1:30 PM EST SHOULDER/ELBOW INITIAL CONSULT SERVICE DATE: 06/09/2024 PCP: Gildardo Lacy MD REFERRING PROVIDER: EMILIE Spicer [address] [facility] [address] [facility] [address] Consult requested for an opinion regarding the evaluation and treatment of the above. My final impression and recommendations will be communicated back to the requesting physician by way of the shared medical record or letter via [place] mail. CHIEF COMPLAINT: Right shoulder pain SUBJECTIVE HISTORY OF PRESENT ILLNESS: 63 year old male, who presents for the above CC. Patient is a pdhjo-cnbx-phxdsaeh 63-year-old male with past medical history of [...] without relief. Has been taking Tylenol and vexn-awe-ittlali medications. Painis improved when he is lying [...] Hypertension, Benign Tachycardia Pvd (Peripheral Vascular Disease) ([facility]) Peripheral Neuropathy History of Transient Ischemic Attack ([facility]) Copd (Chronic Obstructive Pulmonary Disease) ([facility]) Current Smoker Gerd (Gastroesophageal Reflux Disease) Prediabetes [...] N/A Hebert Miguel MD documented in this encounterKettering Health [facility]02-07-2025 NoteHNO ID: [id number] Author: HEBERT MIGUEL MD Service: ? Author Type: Physician Type: Progress Notes Filed: 06/10/2024 17:06 Note Text: SHOULDER/ELBOW INITIAL CONSULT SERVICE DATE: 06/09/2024 PCP: Gildardo Lacy MD REFERRING PROVIDER: EMILIE Spicer [address] [facility] [address] [place] [address] Consult requested for an opinion regarding the evaluation and treatment of the above. My final impression and recommendations will be communicated back to the requesting physician by way of the shared medical record or letter via US mail. CHIEF COMPLAINT: Right shoulder pain SUBJECTIVE HISTORY OF PRESENT ILLNESS: 63 year old male, who presents for the above CC. Patient is a pmuqp-azxx-ovulvceu 63-year-old male with past medical history of [...] without relief. Has been taking Tylenol and lzrg-lcg-hgzuixk medications. Pain is improved when he is [...] as instructed as neede (more content not included)...[facility] 06-10-2024 History of Present illness Narrative* Tayler Vick RT(R) - 06/10/2024 12:30 PM EST Radiology Service Progress Note PATIENT NAME: Aljeo Floyd DATE OF SERVICE: June 10, 2024 [...] PATIENT PRESENTS WITH AN IMPLANTABLE OR ATTACHED LIDAR TECHNICIAN: No RADIOLOGY DEPARTMENT: General X-ray: Exam(s) Completed: Upper Extremity X- Ray(s): Shoulder, AP / TRUE AP / VELPEAU right PERIPHERAL IV DATA: Not applicable SIGNED BY: GALE Smith) June 10, 2024 2:42 PM documented in this encounterKettering Health [facility]02-07-2025 NoteHNO ID: [id number] Author: TAYLER VICK RT(R) Service: Radiology Author [...] PATIENT PRESENTS WITH AN IMPLANTABLE OR ATTACHED LIDAR TECHNICIAN: No RADIOLOGY DEPARTMENT: General X-ray: Exam(s) Completed: Upper Extremity X-Ray(s): Shoulder, AP / TRUE AP / VELPEAU right PERIPHERAL IV DATA: Not applicable SIGNED BY: RT Luis(R) June 10, 2024 2:42 [facility]01-29-2025 History of Present illness Narrative* Gildardo Lacy [...] ADLs around the house. documented in this [facility]01-23-2025 Telephone encounter Note* Telephone Encounter - Gildardo Lacy MD - 05/26/2024 11:44 AM EST [facility] Eyygdfticu03-79-2303 Miscellaneous Notes* Telephone Encounter - Gildardo Lacy MD - 05/26/2024 11:44 AM EST documented in this [facility]01-21-2025 History of Present illness Narrative* EMILIE Spicer [...] MR shoulder [place] [address] Magnetic Resonance Report Signed Patient: ALEJO FLOYD MR#: [id number] : 1960 Acct:[id number] Age/Sex: 63 / M ADM Date: 05/20/24 Loc: MRI Attending Dr: Cassie Hood PA Ordering Physician: Cassie Hood Date of Service: 05/20/24 Procedure(s): MR shoulder RT wo con Accession Number(s): [id number] cc: Cassie Hood; Gildardo Lacy M.D. [place] [id number] Patient Name: ALEJO FLOYD MRN: [id number] date: 1960 Sex: M Assigned Patient Location: MRI Current Patient Location: MRI Accession/Order Number: [id number] Exam Date: 05/20/2024 09:45 Report Date: 05/20/2024 [...] Signed By: 05/20/24 1501 DD/ 1459 TD/TT: Business Administration Program Chair: Procedures Orders Placed This Encounter Procedures Ambulatory [...] rotator cuff, and an MRI performed at [place] confirms retraction and tear. The case was discussed with Dr. Wade regarding surgical and nonsurgical treatment. He is in moderate to significant pain daily with his shoulder, and Dr. Wade is recommending evaluation by a shoulder specialist for potential reverse total shoulder.He is agreeable with referral and prefers [facility] as he has had cancer [...] A referral will be placed to the [facility] for further evaluation and treatment. His MRI at the [facility] has been pushed to the PACS system for [facility]. PROCEDURE The patient underwent right shoulder arthroscopy with repair of the rotator cuff. Questions answered in laymen terms at the bedside. The diagnosis, home exercise plan and any ongoing restrictions/ recommendations reviewed. If unable to be reached in office, I recommend evaluation at nearest Emergency Room if any symptoms worsened or new symptoms develop for requiring urgent evaluation. documented in this encounterSt. Louis Children's HospitalBnxejzaabj31-34-0914 Telephone encounter Note* Telephone Encounter - Sumi Dior, ELISHAT - 05/12/2024 3:33 PM EST Left msg for Cheryle stating that the order is for [facility]. Our referral dept did precert for [facility] for some reason. I told Cheryle she will have to just call the insurance company and have them change the Facility. She will call back if any additional info is needed [facility] HospitalAgnzammylq79-72-4024 Miscellaneous Notes* Telephone Encounter - JOSE Alvarado - 05/12/2024 3:33 PM EST Left msg for Cheryle stating that the order is for [facility]. Our referral dept did precert for [facility] for some reason. I told Cheryle she will have to just call the insurance company and have them change the Facility. She will call back if any additional info is needed * Telephone Encounter - Shruthi Lira - 05/12/2024 9:25 AM EST Cheryle at [facility] left returning call from [facility]. She stated that we need to change the order to TB instead of noms. Please call Cheryle back at [phone] ext [phone]. documented in this encounterSt. Louis Children's HospitalEtzxbylvji39-53-8690 Telephone encounter Note* Telephone Encounter - Shruthi Lira - 05/12/2024 9:25 AM EST Cheryle at [facility] left returning call from [facility]. She stated that we need to change the order to [facility] instead of noms. Please call Cheryle back at [phone] [facility] HospitalJjvzoazsjf54-97-4270 History of Present illness Narrative* EMILIE Spicer [...] THERAPY DONE 2 TIMES A WEEK IN [place]. DENIES SWELLING. DENIES N/T. PT IS TAKING [...] for requiring urgent evaluation. documented in this encounterSt. Louis Children's HospitalNddqkqmdph94-99-3099 Telephone encounter Note* Telephone Encounter - Gildardo Lacy MD - 04/21/2024 4:[address] [facility] HospitalMoibrepkig15-58-2952 Miscellaneous Notes* Telephone Encounter - Gildardo Lacy MD - 04/21/2024 4:48 PM EST documented in this encounterSt. Louis Children's HospitalMduxkjnrhy78-07-1477 History of Present illness Narrative* Gildardo Lacy [...] or 2 views left documented in this encounterSt. Louis Children's HospitalFloykgcjjn85-80-2135 Telephone encounter Note* Telephone Encounter - Nathaly Biggs APRN.CNP - 04/04/2024 11:48 AM EST The following approved medication requests have been transmitted electronically. Requested Prescriptions Signed Prescriptions Disp Refills megestrol (MEGACE) 400 mg/10 mL (40 mg/mL) suspension 480 mL 1 Sig: take 20 milliliters by mouth once daily Authorizing Provider: NATHALY BIGGS APRN.CNP [facility]12-02-2024 Miscellaneous Notes* Telephone Encounter - Nathaly Biggs APRN.CNP - 04/04/2024 11:48 AM EST The following approved medication requests have been transmitted electronically. Requested Prescriptions Signed Prescriptions Disp Refills megestrol (MEGACE) 400 mg/10 mL (40 mg/mL) suspension 480 mL 1 Sig: take 20 milliliters by mouth once daily Authorizing Provider: NATHALY BIGGS APRN.CNP documented in this encounterKettering Health [facility]in [facility]11-20-2024 History of Present illness Narrative* EMILIE Spicer [...] A note was given to take to [place] [facility] to increase his range of motion [...] for requiring urgent evaluation. documented in this encounterSt. Louis Children's [id number] History of Present illness Narrative* Gildardo Lacy MD - 02/29/2024 10:15 AM EDTAssociated Problem(s): COPD (chronic obstructive pulmonary disease) ([facility]) Recent exacerbation but improved. Resume breo and use albuterol PRN. * Gildardo Lacy MD - 02/29/2024 9:45 AM EDT Images from the original note were not included. Subjective Patient ID: Alejo Floyd is a 63 y.o. male who presents for Follow-up (Er f/u). ER follow up from 02/17 for COPD exacerbation. Developed severe SOB and chest tightness. [place] like not able to take deep breath [...] This Visit COPD (chronic obstructive pulmonary disease) ([facility]) - Primary Recent exacerbation but improved. Resume breo and use albuterol PRN. Relevant Medications Fluticasone Furoate-Vilanterol (Breo Ellipta) 100-25 MCG/ACT aerosol powder albuterol (2.5 MG/3ML) 0.083% nebulizer solution Other Visit Diagnoses Need for immunization against influenza Relevant Orders Flu vaccine greater than or equal to 3 years old, preservative free IM (Completed) documented in this encounterSt. Louis Children's [id number] History of Present illness Narrative* EMILIE Spicer [...] pt would like to do therapy at [facility]... therapy order given.. pt verbalized he must [...] for requiring urgent evaluation. documented in this encounterSt. Louis Children's [id number] Instructions* Patient Instructions* EMILIE Spicer - 02/23/2024 [...] schedule as soon aspossible documented in this encounterSt. Louis Children's HospitalFaxtskpueg64-99-5597 Telephone encounter Note* Telephone Encounter - Jesse George NP - 02/08/2024 6:36 PM EDT Post op pain rx. PDMP reviewed [facility] Work Phone: 1(458) 340-540410-07-2024 Miscellaneous Notes* Telephone Encounter - Jesse George NP - 02/08/2024 6:36 PM EDT Post op pain rx. PDMP reviewed documented in this encounterSt. Louis Children's [id number] History of Present illness Narrative* EMILIE Spicer [...] @SABRA SX INSTRUCTIONS GIVEN TODAY 02/01 @9:30AM [facility] DR. LACY CLEARANCE ; OBTAINED ULTRASLING GIVEN TODAY ARTHREX NOTIFIED PA APPROVED ([id number]) Patient presents today for fitting of right [...] Brace was dispensed to the patient and [facility] Patient Agreement was completed and signed. Warranty informationwas given and explained to the patient with good understanding. Proper care and fitting was also explained to the patient with good understanding. Follow up for 02/22 @11AM W/[place] IN [place]. documented in this [facility]09-12-2024 Telephone encounter Note* Telephone Encounter - Ne Tomlin MA - 01/14/2024 9:15 AM EDT LEFT VM WITH DR. LACY'S OFFICE WE NEED CLEARANCE PRIOR TO SCHEDULING. CALLED PATIENT AND INFORMED HIM. HE IS UNDERSTANDING THAT ONCE WE OBTAIN CLEARANCE I WILL CALL TO SCHEDULE SX. [facility] [id number] Miscellaneous Notes* Telephone Encounter - Ne Tomlin [...] regarding a scheduling surgery? documented in this [facility]09-09-2024 Telephone encounter Note* Telephone Encounter - Ana Powell - 01/11/2024 2:33 PM EDT Patient called regarding a scheduling surgery? [facility] HospitalCwtkeikrtj45-57-0108 History of Present illness Narrative* Jr. Martin Chen DO - 12/28/2023 2:00 PM EDT Images from the original note were not included. HISTORY OF PRESENT ILLNESS: EST PT Alejo Floyd is an 63 y.o. @ male. EST PT RECHECK RT SHOULDER- HERE FOR MRI RT SHOULDER RESULTS [facility] 12/22/23 XRAY RT SHOULDER EPIC 11/02/23 MRI RT SHOULDER 12/22/23 [facility] S/P (R) SHOULDER SCOPE 06/27/22 - DR CHEN S/P RT SHOULDER NICOLE 11/28/22- DR CHEN CORTISONE INJ 11/02/23 S/P MDP 10/27/22 S/P PHYSICAL THERAPY NOMS PREVIOUS PHYSICAL THERAPY @ [facility] ; S/P SCOPE CONTINUES TO HAVE PAIN- [...] intervention. Martin Chen D.O. documented in this encounterSt. 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 Bagley documented in this encounterKettering Health [facility] Soin [facility] Center08-19-2024 History of Present illness Narrative* Esdras Cash [...] 07/17/2020 Base of tongue biopsy ([facility]) Invasive squamous cell carcinoma HPV negative LABS: [...] osseous lesion. 2021 CT abdomen/pelvis ([facility]) Distal small bowel obstruction with fluid-filled dilatation [...] neoplastic process.. 07/13/2020 Chest x-ray ([facility]) No acute disease 07/09/2020 CT neck ([facility]) 3.6 x 3.4 x 2.6 cm infiltrative [...] carcinoma. The patient was referred to [facility] (Dr. Olivarez), and subsequently underwent a [...] PCP. Esdras Cash MD documented in this encounterKettering Health [facility] Soin [facility] Center08-13-2024 History of Present illness Narrative* Marilee Diamond [...] 9:33 AM PAGER/CONTACT #: documented in this encounterKettering Health – Soin Medical Center07-16-2024 History of Present illness Narrative* Carmen Neely [...] Rfl: Assessment/Plan 1. PVD (peripheral vascular disease) ([facility]) Follow Up In Cardiology 2. [...] exam, discussion and plan. documented in this encounterCincinnati Children[facility] Work Phone: 1(959) 465-456707-16-2024 Instructions* Patient Instructions* Sweetie Hidalgo LPN - [...] gain to the patient. 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 No evidence of recurrence. Stable postradiation soft tissue effects. Continue conservative management including Aquaphor for the skin irritation. Otherwise plan for continued close follow-up and surveillance. Signed by: Kathrine Carpenter MD cc: Gildardo Lacy MD ([facility]) [address] [place] [address] Dr. Bagley documented in this encounterKettering Health – Soin [facility] Center04-15-2024 History of Present illness Narrative* Esdras Cash [...] 07/17/2020 Base of tongue biopsy ([facility]) Invasive squamous cell carcinoma HPV negative LABS: [...] osseous lesion. 2021 CT abdomen/pelvis ([facility]) Distal small bowel obstruction with fluid-filled dilatation [...] neoplastic process.. 07/13/2020 Chest x-ray ([facility]) No acute disease 07/09/2020 CT neck ([facility]) 3.6 x 3.4 x 2.6 cm infiltrative [...] carcinoma. The patient was referred to [facility] (Dr. Olivarez), and subsequently underwent a [...] PCP. Esdras Cash MD documented in this encounterKettering Health – Soin Medical Center02-16-2024 Miscellaneous Notes* Telephone Encounter - Nathaly Biggs APRN.SPOTTER - 06/19/2023 2:00 PM EST The following approved medication requests have been transmitted electronically. Requested Prescriptions Signed Prescriptions Disp Refills megestrol (MEGACE) 400 mg/10 mL (40 mg/mL) suspension 480 mL 1 Sig: take 20 milliliters by mouth once daily Authorizing Provider: NATHALY BIGGS APRN.SPOTTER documented in this encounterKettering Health – Soin [facility] Center01-03-2024 History of Present illness Narrative* Carmen Neely [...] of Carmen Neely MD. documented in this encounterUnCincinnati Children's Hospital Medical Center Work Phone: 1(902) 993-779101-03-2024 Instructions* Patient Instructions* Eve Lee LPN - [...] time of your visit. documented in this encounterCincinnati Children's Hospital Medical Center Work Phone: [phone]) 769-195610-13-2023 Miscellaneous Notes* Telephone Encounter - Judith Lorenz [...] If in agreement please refer to our exchange architect. I will see him back as scheduled. documented in this encounterKettering Health [facility] Soin [facility] Center10-11-2023 History of Present illness Narrative* Cynthia Meadows [...] 1250 PATIENT DISCHARGED TO: Ambulatory patient, left [place] department area. 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 Patient with recent weight loss, no obvious cause. Imaging with PET ordered. No clinical evidence of progression. Plan to see patient back after imaging. Signed by: Kathrine Carpenter MD cc: Gildardo Lacy MD (DrC) [address] [place] [address] Dr. Bagley documented in this encounterKettering Health – Soin [facility] Center05-10-2023 History of Present illness Narrative* Farida Haynes [...] mg/dl, Calculated GFR >60, Date 08/30/2022 @ [facility] (scanned in) TREATMENT: No Hydration needed. IV [...] 10, 2022 8:39 AM documented in this encounterKettering Health – Soin Medical Center04-11-2023 Miscellaneous Notes* Telephone Encounter - Farida Haynes RN - 08/12/2022 1:45 PM EDT Please sign pended CRE for CT. Thank you, Farida documented in this encounterKettering Health – Soin [facility] Center01-17-2023 History of Present illness Narrative* Esdras Cash [...] 07/17/2020 Base of tongue biopsy ([facility]) Invasive squamous cell carcinoma HPV negative LABS: [...] osseous lesion. 2021 CT abdomen/pelvis ([facility]) Distal small bowel obstruction with fluid-filled dilatation [...] neoplastic process.. 07/13/2020 Chest x-ray ([facility]) No acute disease 07/09/2020 CT neck ([facility]) 3.6 x 3.4 x 2.6 cm infiltrative [...] carcinoma. The patient was referred to [facility] (Dr. Olivarez), and subsequently underwent a [...] abdominal pain. Hesubsequently was seen at the [place] emergency room on 2021 and transferred to [facility] for suspected small bowel obstruction secondary to an abdominal wall hernia. His acute symptoms resolved withIVF and bowel rest. The patient is aware that his symptoms may recur, in which case surgery may be indicated. Continue management per PCP. 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 Overall doing well. Radiographically and clinically without evidence of recurrence. Plan for follow-up in 3 months. Signed by: Kathrine Carpenter MD cc: Gildardo Lacy MD (Dr) [address] [facility] [place] [address] Dr. 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 Patient doing well. No evidence of clinical recurrence. Recommend follow-up in 3 to 3 months, recommend CT neck and chest at that time. Signed by: Kathrine Carpenter MD cc: Gildardo Lacy MD (DrC) [address] [place] [address] Dr. Bagley documented in this encounterKettering Health – Soin [facility] Center10-18-2022 Nurse Note* Alejo Griffiths - 02/18/2022 11:20 AM EDT Patient Identification confirmed: yes. Injection given and documented on JUL per provider order. Alejo Griffiths documented in this encounterKettering Health – So[facility] Center10-18-2022 History of Present illness Narrative* Esdras Cash [...] 07/17/2020 Base of tongue biopsy ([facility]) Invasive squamous cell carcinoma HPV negative LABS: [...] osseous lesion. 2021 CT abdomen/pelvis ([facility]) Distal small bowel obstruction with fluid-filled dilatation [...] neoplastic process.. 07/13/2020 Chest x-ray ([facility]) No acute disease 07/09/2020 CT neck ([facility]) 3.6 x 3.4 x 2.6 cm infiltrative [...] carcinoma. The patient was referred to [facility] (Dr. Olivarez), and subsequently underwent a [...] abdominal pain. Hesubsequently was seen at the [place] emergency room on 2021 and transferred to [facility] for suspected small bowel obstruction secondary to an abdominal wall hernia. His acute symptoms resolved withIVF and bowel rest. The patient is aware that his symptoms may recur, in which case surgery may be indicated. Continue management per PCP. 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 Bagley documented in this encounterKettering Health – So[facility] Center08-22-2022 History of Present illness Narrative* Cynthia Meadows, [...] 901 PATIENT DISCHARGED TO: Ambulatory patient, left [place] area. A Diagnostic radioactive procedure has taken place, with no further precautions necessary other than routine body substance precautions. More information regarding radiation safety can be found usingthis link: [email or web address] SIGNATURE: RT Jose Alfredo(R) PATIENT NAME: Alejo Floyd DATE: December 23, 2021 TIME: 9:50 AM PAGER/CONTACT #: documented in this encounterKettering Health – So[facility] Center07-26-2022 Miscellaneous Notes* Telephone Encounter - Anthony Weaver [...] prescribe magic mouthwash, Alejo would like to coal picker the prescription at our pharmacy tomorrow. Nathaly will you please address this encounter as Dr. Carpenter and Dr. Cash are both on vacation this week. Please advise. 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 Patient continues to well without clinical evidence of recurrence. He has some soft tissue changes related to radiation treatments but these are stable. Recommend further follow-up with PET scan in 4weeks. Signed by: Kathrine Carpenter MD cc: Gildardo Lacy MD ([facility]) [address] [place] [address] Dr. Bagley documented in this encounterKettering Health – So[facility] Center06-15-2022 NoteMR#: [id number] [facility] Pt. Name: Alejo Floyd Admitted: 09/19/2021 Discharged: 09/20/2021 Date of : 1960 Physician: Zarina Morgan M.D. DISCHARGE SUMMARY ADMISSION DIAGNOSIS: Small bowel obstruction. DISCHARGE DIAGNOSIS: Small-bowel obstruction, resolving. No consults. No procedures. HISTORY OF PRESENT ILLNESS: 61-year-old male presenting to [facility] as direct admission. The patient presented [...] Sepulveda PA-C Date Trans: 10/16/2021 07:27 A/radha [id number] cc: Gildardo Lacy M.D. [address] [facility] [address]jpMer[facility]06-03-2022 History of Present illness Narrative* Rylee [...] Dosing Weight: 75.4 kg Estimated kilocalorie needs: 2151-8602 kilocalories determined by 25-30 kcal/kg Estimated protein needs: 75-90 grams determined by 1.0-1.2 g/kg Dosing weight Estimated fluid needs: ~7089-9175 milliliters based on 1 mL per kcal [...] Wilhelm MS, RDN, LD documented in this encounterKettering Health – [facility] Center06-02-2022 Nurse Note* Myesha Garcia MA - 10/03/2021 2:03 PM EDT Patient would like something for his diarrhea. Myesha Garcia MA documented in this encounterKettering Health – So[facility] Center06-02-2022 History of Present illness Narrative* Esdras Cash [...] 07/17/2020 Base of tongue biopsy ([facility]) Invasive squamous cell carcinoma HPV negative LABS: Hemoglobin (g/dL) Date Value 10/03/2021 10.6 06/28/2021 12.9 Hematocrit (%) Date Value 10/03/2021 32.9 06/28/2021 40.1 WBC (k/uL) Date Value 10/03/2021 4.96 06/28/2021 15.52 Platelet Count (k/uL) Date Value 10/03/2021 159 06/28/2021 398 RADIOLOGY/OTHER STUDIES: 2021 CT abdomen/pelvis ([facility]) Distal small bowel obstruction with fluid-filled dilatation [...] neoplastic process.. 07/13/2020 Chest x-ray ([facility]) No acute disease 07/09/2020 CT neck ([facility]) 3.6 x 3.4 x 2.6 cm infiltrative [...] carcinoma. The patient was referred to [facility] (Dr. Olivarez), and subsequently underwent a [...] abdominal pain. Hesubsequently was seen at the [place] emergency room on 2021 and transferred to [facility] for suspected small bowel obstruction secondary to an abdominal wall hernia. His acute symptoms resolved withIVF and bowel rest. The patient is aware that his symptoms may recur, in which case surgery may be indicated. Continue management per PCP. Esdras Cash MD CC: Dr. 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 Cash, Dr. Olivarez documented in this encounterKettering Health – So[facility] Center05-25-2022 History of Present illness Narrative* Rylee Wilhelm, [...] denies any N/V/D/C. Pt was recentlyd/c'd from [facility] for a SBO, no surgical intervention [...] Wilhelm MS, RDAleida, LD documented in this encounterKettering Health – Soin [facility] Center05-23-2022 Miscellaneous Notes* Telephone Encounter - Cynthia Cutler RN - 09/23/2021 3:07 PM EDT DISCHARGE CALL BACK Today's date: September 23, 2021 Notified of Pt discharge by: Call placed to [facility] for follow up. Patient discharged on 09/21/21 from [facility] to Home Primary Cancer Diagnosis: Oropharnxy Cancer Admitting Diagnosis: SBO Discharge Summary/SBAR reviewed: No - Requested from medical records Handoff Discussed with Transitional Wiring Inspector: No, unavailable Psychosocial Risk Factors: None If [...] pain. Cynthia Cutler RN documented in this encounterKettering Health – So[facility] Center05-23-2022 Miscellaneous Notes* Telephone Encounter - Cynthia Cutler RN - 09/23/2021 3:05 PM EDT FYI: Pt was dc'd home over the weekend. In today for follow up. Cris: Please scan hospital records from [facility]. Thanks! Cynthia Cutler RN * Telephone Encounter - Cynthia Cutler RN - 09/19/2021 9:21 AM EDT FYI: Pt transferred from [facility] ER to [facility]. Admitted w/ SBO. Spoke w/ his bedside nurse who reports the pt is scheduled for a small bowel follow through today to confirm placement of his NG tube. No additional treatment plans in place at this time. Clerical: Please cancel tomorrow's appointment. Thanks! Cynthia Cutler RN documented in this encounterKettering Health – Soin [facility] Center05-23-2022 History of Present illness Narrative* Esdras Cash [...] hold. He subsequently was seen at the [place] emergency room on 2021 and transferred to [facility] for suspected small bowel obstruction. Apparently [...] 07/17/2020 Base of tongue biopsy ([facility]) Invasive squamous cell carcinoma HPV negative LABS: [...] neoplastic process.. 07/13/2020 Chest x-ray ([facility]) No acute disease 07/09/2020 CT neck ([facility]) 3.6 x 3.4 x 2.6 cm infiltrative [...] carcinoma. The patient was referred to [facility] (Dr. Olivarez), and subsequently underwent a [...] MD CC: Dr. Bagley documented in this encounterKettering Health – Soin [facility] Center05-18-2022 Miscellaneous Notes* Telephone Encounter - Anthony Weaver [...] ER. Report phoned to Dr Arana @ [facility] ER. Last office note and med list faxed to [phone]. Cynthia Cutler RN documented in this encounterKettering Health – [facility] Center05-17-2022 Miscellaneous Notes* Telephone Encounter - Cynthia Cutler [...] recommendations. Katrin Arias RN documented in this encounterKettering Health – So[facility] Center05-16-2022 Miscellaneous Notes* Telephone Encounter - Cynthia Cutler [...] back. Cynthia Cutler RN documented in this encounterKettering Health – Soin [facility] Center05-16-2022 History of Present illness Narrative* Anthony Weaver [...] 07/17/2020 Base of tongue biopsy ([facility]) Invasive squamous cell carcinoma HPV negative LABS: [...] neoplastic process.. 07/13/2020 Chest x-ray ([facility]) No acute disease 07/09/2020 CT neck ([facility]) 3.6 x 3.4 x 2.6 cm infiltrative [...] carcinoma. The patient was referred to [facility] (Dr. Olivarez), and subsequently underwent a [...] PA-C CC: Dr. 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 Mike Brown MD documented in this encounterK[facility]tering [facility]05-16-2022 Miscellaneous Notes* Telephone Encounter - REINALDO Ruelas [...] email from the [facility] [place] stating that they are now accepting applications [...] home address. RIMA Ruelas documented in this encounterK[facility]05-09-2022 History of Present illness Narrative* Rylee Wilhelm [...] Wilhelm, MS, RDN, LD documented in this encounterKettering [facility]05-09-2022 Miscellaneous Notes* Telephone Encounter - Caitlyn Stockton RN - 09/09/2021 12:53 PM EDT Pt receiving dose 5 carboplatin today and reports that he forgot to mention that my feet are starting to have more tingling. Pt denies recent falls and reports that neuropathy is tolerable. Wanted you to be aware as he doesn't have f/u prior to his next dose. 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 Kathrine Carpenter MD documented in this encounterKet[facility]05-09-2022 History of Present illness Narrative* Esdras Cash [...] 07/17/2020 Base of tongue biopsy ([facility]) Invasive squamous cell carcinoma HPV negative LABS: [...] neoplastic process.. 07/13/2020 Chest x-ray ([facility]) No acute disease 07/09/2020 CT neck ([facility]) 3.6 x 3.4 x 2.6 cm infiltrative [...] carcinoma. The patient was referred to [facility] (Dr. Olivarez), and subsequently underwent a [...] MD CC: Dr. Bagley documented in this encounterKet[facility]05-02-2022 History of Present illness Narrative* Abby Ba RN - 09/02/2021 11:46 AM EDT . documented in this encounterKet[facility]05-02-2022 History of Present illness Narrative* Anthony Weaver [...] 07/17/2020 Base of tongue biopsy ([facility]) Invasive squamous cell carcinoma HPV negative LABS: [...] neoplastic process.. 07/13/2020 Chest x-ray ([facility]) No acute disease 07/09/2020 CT neck ([facility]) 3.6 x 3.4 x 2.6 cm infiltrative [...] carcinoma. The patient was referred to [facility] (Dr. Olivarez), and subsequently underwent a [...] PA-C CC: Dr. 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 Kathrine Carpenter MD documented in this encounterKet[facility]04-25-2022 History of Present illness Narrative* Rylee Wilhelm, [...] Wilhelm MS, RDN, LD documented in this encounterKettering [facility]04-18-2022 History of Present illness Narrative* Abby Ba RN - 08/19/2021 2:45 PM EDT . 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 Kathrine Carpenter MD documented in this encounterK[facility]04-18-2022 History of Present illness Narrative* Rylee Wilhelm, [...] Wilhelm MS, HERMELINDA, NICHOLAS documented in this encounterKettering Health [facility]04-18-2022 History of Present illness Narrative* Nathaly Biggs APRN.SPOTTER - 08/19/2021 1:30 PM EDT PATIENT NAME: [...] 07/17/2020 Base of tongue biopsy ([facility]) Invasive squamous cell carcinoma HPV negative LABS: [...] neoplastic process.. 07/13/2020 Chest x-ray ([facility]) No acute disease 07/09/2020 CT neck ([facility]) 3.6 x 3.4 x 2.6 cm infiltrative [...] carcinoma. The patient was referred to [facility] (Dr. Olivarez), and subsequently underwent a [...] APRN.SILVINO CC: Dr. Bagley documented in this encounterKettering [facility]04-14-2022 Miscellaneous Notes* Telephone Encounter - Cynthia Cutler [...] protocol. Cynthia Cutler RN documented in this encounterKettering Health [facility]04-11-2022 Miscellaneous Notes* Telephone Encounter - Cynthia Cutler RN - 08/12/2021 11:49 AM EDT Pt's chemo ed completed via telephone prior to today's appointment. Pt given the chemocare handout,when to call list, and contact information today. No additional questions noted. 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 Kathrine Carpenter MD documented in this encounterKettering [facility]04-11-2022 History of Present illness Narrative* Esdras Cash [...] 07/17/2020 Base of tongue biopsy ([facility]) Invasive squamous cell carcinoma HPV negative LABS: [...] neoplastic process.. 07/13/2020 Chest x-ray ([facility]) No acute disease 07/09/2020 CT neck ([facility]) 3.6 x 3.4 x 2.6 cm infiltrative [...] carcinoma. The patient was referred to [facility] (Dr. Olivarez), and subsequently underwent a [...] MD CC: Dr. Bagley documented in this encounterKettering [facility]04-08-2022 History of Present illness Narrative* Vale Chung [...] Planned: 2 Planned Treatment Interventions: Therapeutic exercise (87774);Neuromuscular re- education (63995);Manual therapy (74868);Therapeutic activities (79006);Self- nursing home management (05829);Patient/Family/Caregiver Education PLAN FOR NEXT VISIT: Manual and [...] Vale Chung PT, DPT documented in this encounterKettering Health [facility]04-04-2022 History of Present illness Narrative* Cynthia Cutler [...] 08/12. 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 Pt verbalizes understanding. Denies any questions or concerns at this time. Time Spent: 17 minutes REFERRAL (RECOMMENDATION): Already established w/ [employer]. 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 Patient has seen my colleague Dr. Green, postoperative reirradiation recommended due to high risknature of recurrence. Patient offered clinical protocol (ECOG 3191 ) however patient not able to stay in [place] for the duration of treatment seeking to [...] Lacy MD ([facility]) [address] [place] [address] Dr. Bagley documented in this encounterKettering [facility]04-01-2022 Miscellaneous Notes* Telephone Encounter - Nathaly Biggs [...] Thanks! Cynthia Cutler RN documented in this encounterKettering Health [facility]03-31-2022 History of Present illness Narrative* Rylee Wilhelm, [...] Wilhelm MS, RD, LD documented in this encounterKettering Health [facility]03-31-2022 History of Present illness Narrative* Esdras Cash [...] carcinoma. The patient was referred to [facility] (Dr. Olivarez), and subsequently underwent a [...] 07/17/2020 Base of tongue biopsy ([facility]) Invasive squamous cell carcinoma HPV negative LABS: [...] neoplastic process.. 07/13/2020 Chest x-ray ([facility]) No acute disease 07/09/2020 CT neck ([facility]) 3.6 x 3.4 x 2.6 cm infiltrative [...] carcinoma. The patient was referred to [facility] (Dr. Olivarez), and subsequently underwent a [...] would be eligible for current protocol (ECOG JB7201) randomizing patients to receive reirradiation plus a [place] based chemo versus reirradiation plus pembrolizumab versus [...] MD CC: Dr. Bagley documented in this encounterKettering Health [facility]03-31-2022 History of Present illness Narrative* G Сергей Carpenter MD - 08/01/2021 12:00 AM EDT ALEJO FLOYD [id number] 08/01/2021 [facility] [place] Radiation Oncology Department SIMULATION NOTE DATE OF SIMULATION: 08/01/2021 THERAPIST: Millie Zaman MACHINE: [facility] DIAGNOSIS: Malignant neoplasm of base of [id number] AREA: head/neck CONTRAST: IV <Select> 100ML OF [...] / NIK 24:32 PM documented in this encounterKettering [facility]03-31-2022 History of Present illness Narrative* Kathrine Carpenter MD - 08/01/2021 12:00 AM EDT ALEJO FLOYD [id number] 08/01/2021 [facility] Department of Radiation Oncology Treatment Planning Note [...] Carpenter M.D. 2:17 PM documented in this encounterKettering Health [facility]03-29-2022 Miscellaneous Notes* Telephone Encounter - Azar Martino LPN - 07/30/2021 11:00 AM EDT Patient requesting a refill on Megace. States he does have 1 bottle left at home. Azar Martino LPN documented in this encounterKettering Health [facility]02-17-2022 NoteHNO ID: [id number] Author: Cassie Durham RT(R) Service: Radiology Author [...] Cassie Durham RT(R) June 20, 2021 3:33 [id number] NoteMR#: [id number] [facility] Pt. Name: Alejo Floyd Admitted: 05/27/2021 Discharged: 05/30/2021 Date of : 1960 Physician: Charles Mogran MD DISCHARGE SUMMARY PAST MEDICAL HISTORY: The [...] is a 60-year-old male, who presented to [facility] ER as a transfer from [facility] for evaluation of small-bowel obstruction. He presents at the [facility] for evaluation of 2-3 days of constant abdominal pain, which radiated to the back. Reported nausea and vomiting as well as decreased appetite/oral intake with loose stools in the morning, and he has not been passing any stool or gas since the this morning, the morning of 05/27/2021. At [facility], he had a CT of his abdomen [...] was the accepting physician, who transferred to [facility]. The patient arrived with the NG [...] creatinine on admission what was reported from [facility]. The patient was admitted for his NG [...] Dodd CNP Date Trans: 06/04/2021 07:42 A/radha [id number] cc: Gildardo Lacy M.D. [address] [facility] [address]gfMer[facility] History of Present illness Narrative* Cynthia Meadows [...] 906 PATIENT DISCHARGED TO: Ambulatory patient, left [place] department area. A Diagnostic radioactive procedure has taken place, with no further precautions necessary other than routine body substance precautions. More information regarding radiation safety can be found usingthis link: [email or web address] SIGNATURE: RT Jose Alfredo(R) PATIENT NAME: Alejo Floyd DATE: April 05, 2021 TIME: 9:12 AM PAGER/CONTACT #: documented in this encounterKettering Health [facility]12-03-2021 Nurse Note* Marina Del Rio RN - [...] DATE: April 05, 2021 TIME: 9:08 AM [facility] Work Phone: 1(261) 690-804212-03-2021 Nurse Note* Marina Del Rio RN - [...] 2021 TIME: 9:08 AM documented in this encounterKettering Health [facility]07-30-2015 Chief complaint Narrative - Reported* ALEJO FLOYD is being seen for a consultation for SRE. * 61-year-old -Afghan who is in my office for the first time to establish relationship with cardiology. The patient has history of active tobacco abuse and PAD involving mostly the left femoral artery where he had stenting done several years ago in [place]. He has no previous cardiac catheterizations or [...] from statin therapy [facility] Work Phone: 1(861) 832-290707-29-2015 Chief complaint Narrative - Reported* ALEJO FLOYD is being seen for a consultation for SRE. * 61-year-old -Afghan who is in my office for the first time to establish relationship with cardiology. The patient has history of active tobacco abuse and PAD involving mostly the left femoral artery where he had stenting done several years ago in [place]. He has no previous cardiac catheterizations or [...] He would likely benefit from statin therapy [facility] [address] DO Work Phone: 1(326) 777-331307-27-2015 Chief complaint Narrative - Reported* ALEJO FLOYD is being seen for a consultation for SRE. * 61-year-old -Afghan who is in my office for the first time to establish relationship with cardiology. The patient has history of active tobacco abuse and PAD involving mostly the left femoral artery where he had stenting done several years ago in [place]. He has no previous cardiac catheterizations or [...] likely benefit from statin therapy -[facility] DO Work Phone: Evaluation note* Diagnosis Oropharnyx cancer (HCC)- Primary [facility]* 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 Malaise and fatigue Other malaise and fatigue [facility]* Diagnosis Oropharnyx cancer (HCC)- Primary [facility] Diagnosis Oropharnyx cancer (HCC)- Primary [facility]* Diagnosis Physical deconditioning- Primary Debility, unspecified Current smoker Tobacco use disorder [facility]* 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 [facility]* 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 documented [facility]* Diagnosis Oropharnyx cancer (HCC)- Primary documented [facility]* Diagnosis Oropharnyx cancer (HCC)- Primary Cancer [...] Tachycardia, unspecified documented [facility] this [facility]* Diagnosis Oropharnyx cancer (HCC)- Primary documented [facility]* 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 documented [facility]* 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 documented [facility] this [facility]* Diagnosis Oropharnyx cancer (HCC)- Primary documented [facility]* Diagnosis Oropharnyx cancer (HCC)- Primary Cancer [...] Tachycardia, unspecified documented in this [facility]* 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 documented [facility]* Diagnosis Oropharnyx cancer (HCC)- Primary documented [facility]* 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 [facility]* Diagnosis Cancer of base of tongue [...] COPD type (HCC) documented in this encounter [facility] note* Diagnosis PVD (peripheral vascular disease) (CMS/HCC)- Primary Unspecified peripheral vascular disease Abnormal EKG Nonspecific abnormal electrocardiogram (ECG) (EKG) TIA (transient ischemic attack) Unspecified transient cerebral ischemia Current smoker Hyperlipidemia, unspecified hyperlipidemia type Pulmonary emphysema, unspecified emphysema type (CMS/HCC) documented in this encounter [facility] Work Phone: Evaluation note* 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 Malaise and fatigue Other malaise and fatigue Chronic obstructive pulmonary disease, unspecified COPD type (HCC) Severe protein-calorie malnutrition (HCC) Other severe protein-calorie malnutrition Cancer related pain Neoplasm related pain (acute) (chronic) documented in this encounter [facility]* Diagnosis 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, face, and neck History of radiation therapy Personal history of irradiation, presenting hazards to health documented in this encounter [facility] CenterEvaffinity health partners noteNo assessment information availableSelect Medical Specialty [facility] Work Phone: Evaluation note* Diagnosis Oropharnyx cancer [...] hazards to health documented [facility]* Diagnosis Oropharnyx cancer (HCC)- Primary Pharyngeal [...] severe protein-calorie malnutrition documented in this encounter [facility] note* Diagnosis Oropharnyx cancer (HCC)- [...] malaise and fatigue documented in this encounter [facility] note* Diagnosis Oropharnyx cancer (HCC)- [...] 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 [facility] note* Diagnosis Oropharnyx cancer (HCC)- [...] 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 [facility] note* Diagnosis Oropharnyx cancer (HCC)- [...] 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 [facility] note* Diagnosis Malignant neoplasm of [...] Dysphagia, unspecified type documented in this encounter [facility] note* Diagnosis Preop examination- Primary Unspecified pre-operative [...] inoculation against influenza documented [facility] encounter [facility] note* Diagnosis Essential hypertension (CMS/HCC)- [...] thoracolumbar intervertebral disc documented in this encounter [facility] HealthcareEvaluation note* Diagnosis Essential hypertension (CMS/HCC)- [...] right shoulder- Primary documented in this encounter [facility] HealthcareEvaluation note* Diagnosis Essential hypertension (CMS/HCC)- [...] thoracolumbar intervertebral disc documented in this encounter [facility] HealthcareEvaluation note* Diagnosis Essential hypertension (CMS/HCC)- [...] tissues of limb documented in this encounter [facility] HealthcareEvaluation note* Diagnosis PVD (peripheral vascular disease) ([facility]) Unspecified peripheral vascular disease Hyperlipidemia, unspecified hyperlipidemia type TIA (transient ischemic attack) Unspecified transient cerebral ischemia BMI less than 19,adult Current smoker documented in this encounter [facility] Work Phone: Evaluation note* Diagnosis Internal derangement of right shoulder- Primary documented in this encounter [facility] HealthcareEvaluation note* Diagnosis DDD (degenerative disc disease), thoracic Degeneration of thoracic or thoracolumbar intervertebral disc documented in this encounter [facility] HealthcareEvaluation note* Diagnosis Essential hypertension (CMS/HCC)- [...] thoracolumbar intervertebral disc documented in this encounter [facility] HealthcareEvaluation note* Diagnosis Essential hypertension (CMS/HCC)- [...] of shoulder, right documented in this encounter [facility] HealthcareEvaluation note* Diagnosis Essential hypertension (CMS/HCC)- [...] thoracolumbar intervertebral disc documented in this encounter [facility] HealthcareEvaluation note* Diagnosis Essential hypertension (CMS/HCC)- [...] COPD type (CMS/HCC) documented in this encounter [facility] HealthcareEvaluation note* Diagnosis Oropharnyx cancer (HCC)- [...] Primary Generalized pain documented in this encounter [facility]* Diagnosis Oropharnyx cancer (HCC)- Primary Pharyngeal [...] Tobacco use disorder documented in this encounter [facility] note* Diagnosis Oropharnyx cancer (HCC)- Primary Pharyngeal [...] Pain Generalized pain documented [facility] this encounter [facility]* Diagnosis Essential hypertension (CMS/HCC)- Primary [...] thoracolumbar intervertebral disc [facility] Diagnosis Oropharnyx cancer (HCC)- Primary [...] face, and neck documented in this encounter [facility]* Diagnosis Essential hypertension (CMS/HCC)- Primary [...] Unspecified essential hypertension [facility] Diagnosis Essential hypertension (CMS/HCC)- Primary [...] or maintaining sleep documented in this encounter [facility] HealthcareEvaluation note* Diagnosis Essential hypertension (CMS/HCC)- [...] and unspecified hyperlipidemia documented in this encounter [facility] HealthcareEvaluation note* Diagnosis Chronic obstructive pulmonary disease, unspecified COPD type (Multi)- Primary PVD (peripheral vascular disease) (CMS-HCC) Unspecified peripheral vascular disease Current smoker Dyspnea, unspecified type Hyperlipidemia, unspecified hyperlipidemia type TIA (transient ischemic attack) Unspecified transient cerebral ischemia documented in this encounter [facility] Work Phone: Evaluation note* Diagnosis [...] thoracolumbar intervertebral disc documented in this encounter [facility] HealthcareEvaluation note* Diagnosis Essential hypertension- Primary [...] thoracolumbar intervertebral disc documented in this encounter [facility] HealthcareEvaluation note* Diagnosis Essential hypertension- Primary [...] intervertebral disc documented in this encounter [facility] HealthcareEvaluation note* Diagnosis Essential hypertension- [...] respiratory failure (HCC) [facility] Diagnosis Oropharnyx cancer (HCC)- Primary [...] of thyroid- Primary [facility] Diagnosis Essential hypertension- Primary Unspecified essential [...] type (HCC)- Primary documented in this encounter [facility] HealthcareEvaluation note* Diagnosis Sequelae, post-stroke- Primary PAD (peripheral artery disease) Unspecified peripheral vascular disease Hypertension, unspecified type Hyperlipidemia, unspecified hyperlipidemia type Left ventricular hypertrophy Cardiomegaly ICAO (internal carotid artery occlusion), left Chronic obstructive pulmonary disease, unspecified COPD type ([facility]) History of throat cancer Tobacco dependence Tobacco use disorder Alcoholism ([facility]) Other and unspecified alcohol dependence, unspecified drinking behavior documented in this encounter [facility]* Diagnosis Essential hypertension- Primary [...] encounter [facility] HealthcareInstructionsNot on filedocumented in this encounterProDayton [facility] SystemInstructionsNot on filedocumented in this encounterProPremier Health [facility] SouthReason for referral (narrative)* Diagnostic Procedure Only (Routine) - AuthorizedSpecialtyDiagnoses / ProceduresReferred By ContactReferred To ContactXR IMAGING Diagnoses Lower abdominal pain Procedures XR ABDOMEN 2V ROUTINE SUPINE W UPRIGHT/DECUB/CTL RADIOLOGIC EXAM ABDOMEN 2 VIEWS Anthony Weaver PA-C [address] [place] [address] [place] [address] Xr Imaging Referral IDStatusReasonStart DateExpiration DateVisits RequestedVisits [id number] Auto-Generated Referral / [facility] for referral (narrative)* Diagnostic Procedure Only (Routine) - Pending ReviewSpecialtyDiagnoses / ProceduresReferred By Contact Referred To ContactMOLECULAR & FUNCTIONAL IMAGING Diagnoses Oropharnyx cancer (HCC) Procedures NM PET/CT SKULL-THIGH SUBSEQUENT PET IMAGING CT ATTENUATION SKULL BASE MID-THIGH Kathrine Carpenter MD [address] [place] [address] [place] [address] Molecular & Functional Imaging [address] [place] [address] Referral IDStatusReasonStart DateExpiration DateVisits RequestedVisits [id number] Review Auto-Generated Referral / [facility] for referral (narrative)* Consultation (Routine) - AuthorizedSpecialtyDiagnoses / ProceduresReferred By ContactReferred To ContactCardiology Diagnoses PVD (peripheral vascular disease) (CMS/HCC) Procedures Follow Up In Cardiology Carmen Neely MD [address] [place] [address] 2, [address] [address] Carmen Neely MD [address] [place] [address] 2, [address] [address] Referral IDStatusReasonStminneapolis DateExpiration DateVisits RequestedVisits [id number]/3/20241/ [facility] Work Phone: [facility] (narrative)* Diagnostic Procedure Only (Routine) - Pending ReviewSpecialtyDiagnoses / ProceduresReferred By ContactReferred To ContactMOLECULAR & FUNCTIONAL IMAGING Diagnoses Cancer of base of tongue (HCC) Malaise and fatigue Procedures NM PET/CT SKULL-THIGH SUBSEQUENT PET IMAGING CT ATTENUATION SKULL BASE MID-THIGH Esdras Cash MD [address] [place] [address] [place] [address] Molecular & Functional Imaging [address] [place] [address] Referral IDStatusReasonStart DateExpiration DateVisits RequestedVisits [id number] Review Auto-Generated Referral T [facility] for referral (narrative)* Diagnostic Procedure Only (Routine) - ClosedSpecialtyDiagnoses / ProceduresReferred By ContactReferred To ContactMOLECULAR & FUNCTIONAL IMAGING Diagnoses Cancer of base of tongue (HCC) Malaise and fatigue Procedures NM PET/CT SKULL-THIGH SUBSEQUENT PET IMAGING CT ATTENUATION SKULL BASE MID-THIGH Esdras Cash MD [address] [place] [address] [place] [address] Molecular & Functional Imaging [address] [place] [address] Referral IDStatusReasonStart DateExpiration DateVisits RequestedVisits [id number] Auto-Generated Referral / T [facility] for referral (narrative)* Diagnostic Procedure Only (Routine) - ClosedSpecialtyDiagnoses / ProceduresReferred By ContactReferred To ContactMOLECULAR & FUNCTIONAL IMAGING Diagnoses Cancer of base of tongue (HCC) Procedures NM PET/CT SKULL-THIGH SUBSEQUENT PET IMAGING CT ATTENUATION SKULL BASE MID-THIGH Esdras Cash MD [address] [place] [address] [place] [address] Molecular & Functional Imaging [address] [place] [address] Referral IDStatusReasonStart DateExpiration DateVisits RequestedVisits [id number] Auto-Generated Referral OON/Self Pay Override / [facility] for referral (narrative)* Diagnostic Procedure Only (Routine) - ClosedSpecialtyDiagnoses / ProceduresReferred By ContactReferred To ContactMOLECULAR & FUNCTIONAL IMAGING Diagnoses Oropharnyx cancer (HCC) Procedures NM PET/CT SKULL-THIGH SUBSEQUENT PET IMAGING CT ATTENUATION SKULL BASE MID-THIGH Kathrine Carpenter MD [address] [place] [address] Molecular & Functional Imaging [address] [place] [address] Referral IDStatusReasonStart DateExpiration DateVisits RequestedVisits [id number] Auto-Generated Referral / [facility] for referral (narrative)* Diagnostic Procedure Only (Routine) - ClosedSpecialtyDiagnoses / ProceduresReferred By ContactReferred To ContactMOLECULAR & FUNCTIONAL IMAGING Diagnoses Malignant neoplasm of head, face and neck (HCC) Procedures NM PET/CT SKULL-THIGH SUBSEQUENT TUMOR IMAGING PET W/CONC CT SKULL-THIGH Kathrine Carpenter MD [address] [place] [address] [address] [place] [id number] Molecular & Functional Imaging [address] [place] [address] Referral IDStatusReasonStart DateExpiration DateVisits RequestedVisits [id number]/3/20211/ [facility] for referral (narrative)* Diagnostic Procedure Only (Routine) - AuthorizedSpecialtyDiagnoses / ProceduresReferred By Contact Referred To ContactXR IMAGING Diagnoses Pain Procedures XR SHOULDER GENERAL 3V OR MORE AP/TRUE AP/OTHER RIGHT RADEX SHOULDER COMPLETE MINIMUM 2 VIEWS Hebert Miguel MD [address] [place] [address] Xr Imaging [place] [address] Referral IDStatusReasonStart DateExpiration DateVisits RequestedVisits [id number] Auto-Generated Referral / [facility] for referral (narrative)No reason for referral information availableFirelands Regional Med Center Work Phone: [facility] Narrative* Diagnostic Procedure Only (Routine) - ClosedSpecialtyDiagnoses / ProceduresReferred By ContactReferred To ContactRadiation Oncology / RADIATION ONCOLOGY Diagnoses Malignant neoplasm of base of tongue SIM/KAI/Neck - IV Contrast Procedures SIMULATION KELSEY IMRT 30 fractions Kathrine Carpenter MD [address] [place] [address] [place] [address] Ktahrine Carpenter MD [address] [place] [address] [place] [address] Referral IDStatusReasonStart DateExpiration DateVisits RequestedVisits [id number]/31/20226/ [facility] for visit Narrative* Consultation (Routine) - Closed SpecialtyDiagnoses / ProceduresReferred By ContactReferred To ContactPulmonary Disease / Pulmonology Diagnoses Chronic obstructive pulmonary disease, unspecified COPD type (HCC) Chronic hypoxic respiratory failure (HCC) Procedures [place] OFFICE/OUTPATIENT NEW HIGH MDM 60 MINUTES Gildardo Lacy MD [address] [place] [address] Phone: tel: fax: Kaela Negrete, DO [address] [place] [address] Referral IDStatusReasonCarlstadt DateExpiration DateVisits RequestedVisits [id number] Specialty Services Required / [facility] Healthcare Summary Purpose Family History No [...] THERAPEUTIC EXERCISES RE, EA 15 MIN. [address] [place] [address] [facility] [place] [address] [place] [address] Referral IDStatusReasonStart DateExpiration DateVisits RequestedVisits [id number] Review PCP Requested Referral Auto-Generated Referral /[id number] / ProceduresReferred By ContactReferred To ContactCT IMAGING Diagnoses Oropharnyx cancer (HCC) Procedures CT CHEST W IVCON DIAGNOSTIC COMPUTED TOMOGRAPHY THORAX W/CONTRAST Kathrine Carpenter MD [address] [place] [address] Ct Imaging Referral IDStatusReasonStart DateExpiration DateVisits RequestedVisits [id number] Review Auto-Generated Referral /[id number] / ProceduresReferred By ContactReferred To ContactCT IMAGING Diagnoses Oropharnyx cancer (HCC) Procedures CT NECK SOFT TISSUE W IVCON CT SOFT TISSUE NECK W/CONTRAST MATERIAL Kathrine Carpenter MD [address] [place] [address] [place] [address] Ct Imaging Referral IDStatusReasonStart DateExpiration DateVisits RequestedVisits [id number] Review Auto-Generated Referral [id number] / ProceduresReferred By ContactReferred To ContactCT IMAGING Diagnoses Oropharnyx cancer (HCC) Procedures CT CHEST W IVCON DIAGNOSTIC COMPUTED TOMOGRAPHY THORAX W/CONTRAST Kathrine Carpenter MD [address] [place] [address] [place] [address] Ct Imaging [place] [address] Referral IDStatusReasonStart DateExpiration DateVisits RequestedVisits [id number] Auto-Generated Referral /[id number] / ProceduresReferred By ContactReferred To ContactCT IMAGING Diagnoses Oropharnyx cancer (HCC) Procedures CT NECK SOFT TISSUE WO IVCON CT SOFT TISSUE NECK W/O CONTRAST MATERIAL Kathrine Carpenter MD [address] [place] [address] [place] [address] Ct Imaging [facility] Referral IDStatusReasonStart DateExpiration DateVisits RequestedVisits [id number] Auto-Generated Referral /[id number] IDStatusReasonStart DateExpiration DateVisits RequestedVisits [id number] Auto-Generated Referral [id number] / ProceduresReferred By ContactReferred To ContactCT IMAGING Diagnoses Oropharnyx cancer (HCC) Procedures CT NECK SOFT TISSUE W IVCON CT SOFT TISSUE NECK W/CONTRAST MATERIAL Kathrine Carpenter MD [address] [place] [address] [address] [place] [id number] Ct Imaging [place] [address] Referral IDStatusReasonStart DateExpiration DateVisits RequestedVisits [id number] Auto-Generated Referral [id number] / ProceduresReferred By ContactReferred To Contact Diagnoses PVD (peripheral vascular disease) ([facility]) Procedures ECG 12 Lead Carmen Neely MD [address] [facility] 2, [address] [address] Referral IDStatusReasonStart DateExpiration DateVisits RequestedVisits [id number]/16/20247/16/552851JbmzcdnxpFwlzglqfg / Procedures Referred By ContactReferred To ContactCardiology Diagnoses PVD (peripheral vascular disease) ([facility]) Procedures Follow Up In Cardiology Carmen Neely MD 703 [facility] 2, [place] [address] [place] [address] Carmen Neely MD 703 [facility] 2, [place] [address] [place] [address] Referral IDStatusReasonStart DateExpiration DateVisits RequestedVisits [id number]/16/20247/16/202511 Medications Administered Section Medication OrderMAR ActionAction DateDoseRateSite CARBOplatin 204.4 mg in NaCl 0.9% 250 mL (PARAPLATIN) 204.4 mg (Target AUC = 2), INTRAVENOUS, Administer over 30 Minutes, ONCE, 1 dose, On Thu08/12/21 [id number], Approx Total Volume EXP: 1330 08/13/21 Hazardous Chemotherapy Drug: Use appropriate PPE. Antineoplastic Irritant. New Bag/Syringe/Gdsgsj1008/12/2021 1:58 PM NAY959.4 mg dexAMETHasone 10 mg/NS 50 mL (PYXIS) 10 mg ivpb 10 mg, INTRAVENOUS, Administer over 15 Minutes, ONCE, 1 dose, On Thu08/12/21 at 1300, Administer 30minutes prior to infusion. Refrigerate. New Bag/Syringe/Mtodrc9708/12/2021 1:02 PM EDT10 mg ondansetron (PF) 8 mg injection (ZOFRAN) 8 mg, INTRAVENOUS, ONCE, 1 dose, On Thu08/12/21 at 1300, Administer 30 minutes prior to infusion. Given08/12/2021 1:02 PM EDT8 mgMedication OrderMAR ActionAction DateDoseRateSite CARBOplatin 204.4 mg in NaCl 0.9% 250 mL (PARAPLATIN) 204.4 mg (Target AUC = 2), INTRAVENOUS, Administer over 30 Minutes, ONCE, 1 dose, On Thu08/19/21 [id number], Approx Total Volume: mL EXP:_08/20/21 @ 1445__ Hazardous Chemotherapy Drug: Use appropriate PPE. Antineoplastic Irritant. New Bag/Syringe/Slpihw2208/19/2021 3:05 PM YLV434.4 mg dexAMETHasone 10 mg/NS 50 mL (PYXIS) 10 mg ivpb (DECADRON) 10 mg, INTRAVENOUS, Administer over 15 Minutes, ONCE, 1 dose, On Thu08/19/21 at 1500, Administer 30minutes prior to infusion. Refrigerate. New Bag/Syringe/Vrsgxd7208/19/2021 2:45 PM EDT10 mg ondansetron (PF) 8 mg injection (ZOFRAN) 8 mg, INTRAVENOUS, ONCE, 1 dose, On Thu08/19/21 at 1500, Administer 30 minutes prior to infusion. Given04/ 2:45 PM EDT8 mgMedication OrderMAR ActionAction DateDoseRateSite CARBOplatin 213.2 mg in NaCl 0.9% 250 mL (PARAPLATIN) 213.2 mg (Target AUC = 2), INTRAVENOUS, Administer over 30 Minutes, ONCE, 1 dose, On Thu08/26/21 [id number], Approx Total Volume: mL EXP: 08/27/21 1031 Hazardous Chemotherapy Drug: Use appropriate PPE. Antineoplastic Irritant. New Bag/Syringe/Kyfdpt3208/26/2021 11:14 AM JPT680.2 mg dexAMETHasone 10 mg/NS 50 mL (PYXIS) 10 mg ivpb (DECADRON) 10 mg, INTRAVENOUS, Administer over 15 Minutes, ONCE, 1 dose, On Thu08/26/21 at 1030, Administer 30minutes prior to infusion. Refrigerate. New Bag/Syringe/Tlspku8408/26/2021 10:24 AM EDT10 mg ondansetron (PF) 8 [...] Drug: Use appropriate PPE. Antineoplastic Irritant. New Bag/Syringe/Jljvvs5309/02/2021 12:09 PM OQN195.2 mg dexAMETHasone 10 mg/NS 50 mL (PYXIS) 10 mg ivpb (DECADRON) 10 mg, INTRAVENOUS, Administer over 15 Minutes, ONCE, 1 dose, On Thu09/02/21 at 1030, Administer 30 minutes prior to infusion. Refrigerate. New Bag/Syringe/Cdybwq5409/02/2021 11:46 AM EDT10 mg ondansetron (PF) 8 mg injection (ZOFRAN) 8 mg, INTRAVENOUS, ONCE, 1 dose, On Thu09/02/21 at 1030, Administer 30 minutes prior to infusion. Given09/02/2021 11:46 AM EDT8 mgMedication OrderMAR ActionAction DateDoseRate Site NaCl 0.9% 1,000 mL INTRAVENOUS, at 999 mL/hr, Administer over 1 Hours, ONCE, 1 dose, On Thu09/16/21 at 1230 New Bag/Syringe/Matsnu7609/16/2021 12:20 PM HIA102 mL/hr ondansetron (PF) 8 mg injection (ZOFRAN) [...] study several months ago at [facility] which I requested. His cardiac and pulmonary [...] CREATED AUTHOR 10/27/2017 [facility] DATE CREATED AUTHOR AUTHOR'S ORGANIZ ATION 04/10/2018 [facility] DATE CREATED AUTHOR AUTHOR'S ORGANIZ ATION 04/11/2018 [facility] DATE CREATED AUTHOR AUTHOR'S ORGANIZ ATION 04/17/2018 [facility] DATE CREATED AUTHOR AUTHOR'S ORGANIZ ATION 06/21/2021 [facility] DATE CREATED AUTHOR AUTHOR'S ORGANIZ ATION 06/25/2021 [facility] DATE CREATED AUTHOR AUTHOR'S ORGANIZ ATION 10/17/2021 [facility] DATE CREATED AUTHOR AUTHOR'S ORGANIZ ATION 01/29/2022 [facility] DATE CREATED AUTHOR AUTHOR'S ORGANIZ ATION 06/11/2022 [facility] DATE CREATED AUTHOR AUTHOR'S ORGANIZ ATION 06/11/2022 [facility] DATE CREATED AUTHOR AUTHOR'S ORGANIZ ATION 10/10/2022 [facility] DATE CREATED AUTHOR AUTHOR'S ORGANIZ ATION 11/03/2023 [facility] DATE CREATED AUTHOR AUTHOR'S ORGANIZ ATION 02/09/2024 [facility] DATE CREATED AUTHOR AUTHOR'S ORGANIZ ATION 08/01/2024 [facility] DATE CREATED AUTHOR AUTHOR'S ORGANIZ ATION 09/08/2024 [facility] DATE CREATED AUTHOR AUTHOR'S ORGANIZ ATION 09/13/2024 [facility] DATE CREATED AUTHOR AUTHOR'S ORGANIZ ATION 01/12/2025 [facility] DATE CREATED AUTHOR AUTHOR'S ORGANIZ ATION 02/08/2025 [facility] DATE CREATED AUTHOR AUTHOR'S ORGANIZ ATION 03/03/2025 [facility] DATE CREATED AUTHOR AUTHOR'S ORGANIZ ATION 03/15/2025 [facility] Source Comments (unrecognize d section and content) In the event this informatio n is protected by the Federal Confidentiality of Alcohol and Drug Abuse Patient Records regulations: The Federal rules restrict any use of the information to criminally investigate or prosecute any alcohol or drug abuse patient.[facility] the event this information is protected by the Federal Confidentiality of Alcohol and Drug Abuse Patient Records regulations: The Federal rules restrict any use of the information to criminally investigate or prosecute any alcohol or drug abuse patient.[facility] CenterIn the event this information is protected by the Federal Confidentiality of Alcohol and Drug Abuse Patient Records regulations: The Federal rules restrict any use of the information to criminally investigate or prosecute any alcohol or drug abuse patient.[facility] CenterIn the event this information is protected by the Federal Confidentiality of Alcohol and Drug Abuse Patient Records regulations: The Federal rules restrict any use of the information to criminally investigate or prosecute any alcohol or drug abuse patient.[facility] CenterIn the event this information is protected by the Federal Confidentiality of Alcohol and Drug Abuse Patient Records regulations: The Federal rules restrict any use of the information to criminally investigate or prosecute any alcohol or drug abuse patient.[facility] CenterIn the event this information is protected by the Federal Confidentiality of Alcohol and Drug Abuse Patient Records regulations: The Federal rules restrict any use of the information to criminally investigate or prosecute any alcohol or drug abuse patient.[facility] CenterIn the event this information is protected by the Federal Confidentiality of Alcohol and Drug Abuse Patient Records regulations: The Federal rules restrict any use of the information to criminally investigate or prosecute any alcohol or drug abuse patient.[facility] CenterIn the event this information is protected by the Federal Confidentiality of Alcohol and Drug Abuse Patient Records regulations: The Federal rules restrict any use of the information to criminally investigate or prosecute any alcohol or drug abuse patient.[facility] CenterIn the event this information is protected by the Federal Confidentiality of Alcohol and Drug Abuse Patient Records regulations: The Federal rules restrict any use of the information to criminally investigate or prosecute any alcohol or drug abuse patient.[facility] CenterIn the event this information is protected by the Federal Confidentiality of Alcohol and Drug Abuse Patient Records regulations: The Federal rules restrict any use of the information to criminally investigate or prosecute any alcohol or drug abuse patient.[facility] CenterIn the event this information is protected by the Federal Confidentiality of Alcohol and Drug Abuse Patient Records regulations: The Federal rules restrict any use of the information to criminally investigate or prosecute any alcohol or drug abuse patient.[facility] CenterIn the event this information is protected by the Federal Confidentiality of Alcohol and Drug Abuse Patient Records regulations: The Federal rules restrict any use of the information to criminally investigate or prosecute any alcohol or drug abuse patient.[facility] CenterIn the event this information is protected by the Federal Confidentiality of Alcohol and Drug Abuse Patient Records regulations: The Federal rules restrict any use of the information to criminally investigate or prosecute any alcohol or drug abuse patient.[facility] CenterIn the event this information is protected by the Federal Confidentiality of Alcohol and Drug Abuse Patient Records regulations: The Federal rules restrict any use of the information to criminally investigate or prosecute any alcohol or drug abuse patient.[facility] CenterIn the event this information is protected by the Federal Confidentiality of Alcohol and Drug Abuse Patient Records regulations: The Federal rules restrict any use of the information to criminally investigate or prosecute any alcohol or drug abuse patient.[facility] CenterIn the event this information is protected by the Federal Confidentiality of Alcohol and Drug Abuse Patient Records regulations: The Federal rules restrict any use of the information to criminally investigate or prosecute any alcohol or drug abuse patient.[facility] CenterIn the event this information is protected by the Federal Confidentiality of Alcohol and Drug Abuse Patient Records regulations: The Federal rules restrict any use of the information to criminally investigate or prosecute any alcohol or drug abuse patient.[facility] CenterIn the event this information is protected by the Federal Confidentiality of Alcohol and Drug Abuse Patient Records regulations: The Federal rules restrict any use of the information to criminally investigate or prosecute any alcohol or drug abuse patient.[facility] CenterIn the event this information is protected by the Federal Confidentiality of Alcohol and Drug Abuse Patient Records regulations: The Federal rules restrict any use of the information to criminally investigate or prosecute any alcohol or drug abuse patient.[facility] CenterIn the event this information is protected by the Federal Confidentiality of Alcohol and Drug Abuse Patient Records regulations: The Federal rules restrict any use of the information to criminally investigate or prosecute any alcohol or drug abuse patient.[facility] CenterIn the event this information is protected by the Federal Confidentiality of Alcohol and Drug Abuse Patient Records regulations: The Federal rules restrict any use of the information to criminally investigate or prosecute any alcohol or drug abuse patient.[facility] CenterIn the event this information is protected by the Federal Confidentiality of Alcohol and Drug Abuse Patient Records regulations: The Federal rules restrict any use of the information to criminally investigate or prosecute any alcohol or drug abuse patient.[facility] CenterIn the event this information is protected by the Federal Confidentiality of Alcohol and Drug Abuse Patient Records regulations: The Federal rules restrict any use of the information to criminally investigate or prosecute any alcohol or drug abuse patient.[facility] CenterIn the event this information is protected by the Federal Confidentiality of Alcohol and Drug Abuse Patient Records regulations: The Federal rules restrict any use of the information to criminally investigate or prosecute any alcohol or drug abuse patient.[facility] CenterIn the event this information is protected by the Federal Confidentiality of Alcohol and Drug Abuse Patient Records regulations: The Federal rules restrict any use of the information to criminally investigate or prosecute any alcohol or drug abuse patient.[facility] CenterIn the event this information is protected by the Federal Confidentiality of Alcohol and Drug Abuse Patient Records regulations: The Federal rules restrict any use of the information to criminally investigate or prosecute any alcohol or drug abuse patient.[facility] CenterIn the event this information is protected by the Federal Confidentiality of Alcohol and Drug Abuse Patient Records regulations: The Federal rules restrict any use of the information to criminally investigate or prosecute any alcohol or drug abuse patient.[facility] CenterIn the event this information is protected by the Federal Confidentiality of Alcohol and Drug Abuse Patient Records regulations: The Federal rules restrict any use of the information to criminally investigate or prosecute any alcohol or drug abuse patient.[facility] CenterIn the event this information is protected by the Federal Confidentiality of Alcohol and Drug Abuse Patient Records regulations: The Federal rules restrict any use of the information to criminally investigate or prosecute any alcohol or drug abuse patient.[facility] CenterIn the event this information is protected by the Federal Confidentiality of Alcohol and Drug Abuse Patient Records regulations: The Federal rules restrict any use of the information to criminally investigate or prosecute any alcohol or drug abuse patient.[facility] CenterIn the event this information is protected by the Federal Confidentiality of Alcohol and Drug Abuse Patient Records regulations: The Federal rules restrict any use of the information to criminally investigate or prosecute any alcohol or drug abuse patient.[facility] CenterIn the event this information is protected by the Federal Confidentiality of Alcohol and Drug Abuse Patient Records regulations: The Federal rules restrict any use of the information to criminally investigate or prosecute any alcohol or drug abuse patient.[facility] CenterIn the event this information is protected by the Federal Confidentiality of Alcohol and Drug Abuse Patient Records regulations: The Federal rules restrict any use of the information to criminally investigate or prosecute any alcohol or drug abuse patient.[facility] CenterIn the event this information is protected by the Federal Confidentiality of Alcohol and Drug Abuse Patient Records regulations: The Federal rules restrict any use of the information to criminally investigate or prosecute any alcohol or drug abuse patient.[facility] CenterIn the event this information is protected by the Federal Confidentiality of Alcohol and Drug Abuse Patient Records regulations: The Federal rules restrict any use of the information to criminally investigate or prosecute any alcohol or drug abuse patient.[facility] CenterIn the event this information is protected by the Federal Confidentiality of Alcohol and Drug Abuse Patient Records regulations: The Federal rules restrict any use of the information to criminally investigate or prosecute any alcohol or drug abuse patient.[facility] CenterIn the event this information is protected by the Federal Confidentiality of Alcohol and Drug Abuse Patient Records regulations: The Federal rules restrict any use of the information to criminally investigate or prosecute any alcohol or drug abuse patient.[facility] CenterIn the event this information is protected by the Federal Confidentiality of Alcohol and Drug Abuse Patient Records regulations: The Federal rules restrict any use of the information to criminally investigate or prosecute any alcohol or drug abuse patient.[facility] CenterIn the event this information is protected by the Federal Confidentiality of Alcohol and Drug Abuse Patient Records regulations: The Federal rules restrict any use of the information to criminally investigate or prosecute any alcohol or drug abuse patient.[facility] CenterIn the event this information is protected by the Federal Confidentiality of Alcohol and Drug Abuse Patient Records regulations: The Federal rules restrict any use of the information to criminally investigate or prosecute any alcohol or drug abuse patient.[facility] CenterIn the event this information is protected by the Federal Confidentiality of Alcohol and Drug Abuse Patient Records regulations: The Federal rules restrict any use of the information to criminally investigate or prosecute any alcohol or drug abuse patient.[facility] CenterIn the event this information is protected by the Federal Confidentiality of Alcohol and Drug Abuse Patient Records regulations: The Federal rules restrict any use of the information to criminally investigate or prosecute any alcohol or drug abuse patient.[facility] CenterIn the event this information is protected by the Federal Confidentiality of Alcohol and Drug Abuse Patient Records regulations: The Federal rules restrict any use of the information to criminally investigate or prosecute any alcohol or drug abuse patient.[facility] CenterIn the event this information is protected by the Federal Confidentiality of Alcohol and Drug Abuse Patient Records regulations: The Federal rules restrict any use of the information to criminally investigate or prosecute any alcohol or drug abuse patient.[facility] CenterIn the event this information is protected by the Federal Confidentiality of Alcohol and Drug Abuse Patient Records regulations: The Federal rules restrict any use of the information to criminally investigate or prosecute any alcohol or drug abuse patient.[facility] CenterIn the event this information is protected by the Federal Confidentiality of Alcohol and Drug Abuse Patient Records regulations: The Federal rules restrict any use of the information to criminally investigate or prosecute any alcohol or drug abuse patient.[facility] CenterIn the event this information is protected by the Federal Confidentiality of Alcohol and Drug Abuse Patient Records regulations: The Federal rules restrict any use of the information to criminally investigate or prosecute any alcohol or drug abuse patient.[facility] CenterIn the event this information is protected by the Federal Confidentiality of Alcohol and Drug Abuse Patient Records regulations: The Federal rules restrict any use of the information to criminally investigate or prosecute any alcohol or drug abuse patient.[facility] CenterIn the event this information is protected by the Federal Confidentiality of Alcohol and Drug Abuse Patient Records regulations: The Federal rules restrict any use of the information to criminally investigate or prosecute any alcohol or drug abuse patient.[facility] CenterIn the event this information is protected by the Federal Confidentiality of Alcohol and Drug Abuse Patient Records regulations: The Federal rules restrict any use of the information to criminally investigate or prosecute any alcohol or drug abuse patient.[facility] CenterIn the event this information is protected by the Federal Confidentiality of Alcohol and Drug Abuse Patient Records regulations: The Federal rules restrict any use of the information to criminally investigate or prosecute any alcohol or drug abuse patient.[facility] CenterIn the event this information is protected by the Federal Confidentiality of Alcohol and Drug Abuse Patient Records regulations: The Federal rules restrict any use of the information to criminally investigate or prosecute any alcohol or drug abuse patient.[facility] CenterIn the event this information is protected by the Federal Confidentiality of Alcohol and Drug Abuse Patient Records regulations: The Federal rules restrict any use of the information to criminally investigate or prosecute any alcohol or drug abuse patient.[facility] CenterIn the event this information is protected by the Federal Confidentiality of Alcohol and Drug Abuse Patient Records regulations: The Federal rules restrict any use of the information to criminally investigate or prosecute any alcohol or drug abuse patient.[facility] CenterIn the event this information is protected by the Federal Confidentiality of Alcohol and Drug Abuse Patient Records regulations: The Federal rules restrict any use of the information to criminally investigate or prosecute any alcohol or drug abuse patient.[facility] CenterIn the event this information is protected by the Federal Confidentiality of Alcohol and Drug Abuse Patient Records regulations: The Federal rules restrict any use of the information to criminally investigate or prosecute any alcohol or drug abuse patient.[facility] CenterIn the event this information is protected by the Federal Confidentiality of Alcohol and Drug Abuse Patient Records regulations: The Federal rules restrict any use of the information to criminally investigate or prosecute any alcohol or drug abuse patient.[facility] CenterIn the event this information is protected by the Federal Confidentiality of Alcohol and Drug Abuse Patient Records regulations: The Federal rules restrict any use of the information to criminally investigate or prosecute any alcohol or drug abuse patient.[facility] CenterIn the event this information is protected by the Federal Confidentiality of Alcohol and Drug Abuse Patient Records regulations: The Federal rules restrict any use of the information to criminally investigate or prosecute any alcohol or drug abuse patient.[facility] CenterIn the event this information is protected by the Federal Confidentiality of Alcohol and Drug Abuse Patient Records regulations: The Federal rules restrict any use of the information to criminally investigate or prosecute any alcohol or drug abuse patient.[facility] CenterIn the event this information is protected by the Federal Confidentiality of Alcohol and Drug Abuse Patient Records regulations: The Federal rules restrict any use of the information to criminally investigate or prosecute any alcohol or drug abuse patient.[facility] CenterIn the event this information is protected by the Federal Confidentiality of Alcohol and Drug Abuse Patient Records regulations: The Federal rules restrict any use of the information to criminally investigate or prosecute any alcohol or drug abuse patient.[facility] CenterIn the event this information is protected by the Federal Confidentiality of Alcohol and Drug Abuse Patient Records regulations: The Federal rules restrict any use of the information to criminally investigate or prosecute any alcohol or drug abuse patient.[facility] CenterIn the event this information is protected by the Federal Confidentiality of Alcohol and Drug Abuse Patient Records regulations: The Federal rules restrict any use of the information to criminally investigate or prosecute any alcohol or drug abuse patient.[facility] CenterIn the event this information is protected by the Federal Confidentiality of Alcohol and Drug Abuse Patient Records regulations: The Federal rules restrict any use of the information to criminally investigate or prosecute any alcohol or drug abuse patient.[facility] CenterIn the event this information is protected by the Federal Confidentiality of Alcohol and Drug Abuse Patient Records regulations: The Federal rules restrict any use of the information to criminally investigate or prosecute any alcohol or drug abuse patient.[facility] CenterIn the event this information is protected by the Federal Confidentiality of Alcohol and Drug Abuse Patient Records regulations: The Federal rules restrict any use of the information to criminally investigate or prosecute any alcohol or drug abuse patient.[facility] CenterIn the event this information is protected by the Federal Confidentiality of Alcohol and Drug Abuse Patient Records regulations: The Federal rules restrict any use of the information to criminally investigate or prosecute any alcohol or drug abuse patient.[facility] CenterIn the event this information is protected by the Federal Confidentiality of Alcohol and Drug Abuse Patient Records regulations: The Federal rules restrict any use of the information to criminally investigate or prosecute any alcohol or drug abuse patient.[facility] CenterIn the event this information is protected by the Federal Confidentiality of Alcohol and Drug Abuse Patient Records regulations: The Federal rules restrict any use of the information to criminally investigate or prosecute any alcohol or drug abuse patient.[facility] CenterIn the event this information is protected by the Federal Confidentiality of Alcohol and Drug Abuse Patient Records regulations: The Federal rules restrict any use of the information to criminally investigate or prosecute any alcohol or drug abuse patient.[facility] CenterIn the event this information is protected by the Federal Confidentiality of Alcohol and Drug Abuse Patient Records regulations: The Federal rules restrict any use of the information to criminally investigate or prosecute any alcohol or drug abuse patient.[facility] CenterIn the event this information is protected by the Federal Confidentiality of Alcohol and Drug Abuse Patient Records regulations: The Federal rules restrict any use of the information to criminally investigate or prosecute any alcohol or drug abuse patient.[facility] CenterIn the event this information is protected by the Federal Confidentiality of Alcohol and Drug Abuse Patient Records regulations: The Federal rules restrict any use of the information to criminally investigate or prosecute any alcohol or drug abuse patient.[facility] Reason for Visit (unrecogniz ed section and content) ReasonOnset DateCommentsRefill Kysoqnf09/29/2022ReasonCommentsNutrition AssessmentReasonCommentsHead and Neck CancerReasonCommentsCare Coordination AntiemeticsReasonCommentsConsultReasonCommentsChemotherapy TreatmentCarboplatin ReasonCommentsPT EvalPatient EducationSpecialtyDiagnoses / ProceduresReferred By ContactReferred To ContactREHAB AND SPORTS THERAPY INS Diagnoses Current smoker Procedures CONSULT TO PHYSICAL THERAPY PHYSICAL THERAPY EVALUATION HIGH COMPLEX 45 MINS Darien Olivarez MD [address] [place] [address] [facility] [place] [address] [place] [id number] Referral IDStatusReasonStminneapolis DateExpiration DateVisits RequestedVisits [id number] Auto-Generated Referral [id number] CoordinationEducation MaterialReason CommentsRadiotherapy On-treatment VisitSpecialtyDiagnoses / ProceduresReferred By ContactReferred To Contact Diagnoses Cancer of base of tongue (HCC) Procedures CARBOPLATIN INJECTION Esdras Cash MD [address] [place] [address] [place] [address] Yvan Treat Kelsey [address] [place] [address] Referral IDStatusReasonStart DateExpiration DateVisits RequestedVisits [id number] [id number] [id number] Post Treatment CallReasonCommentstongue cancerReasonComments Nutrition CounselingReferral IDStatusReasonStart DateExpiration DateVisits RequestedVisits [id number]/4/20225/30/346027PjfpatYiixieya oropharnyx cancerReasonCommentsCancer of base of tongueOTVReasonCommentsPatient UpdateneuropathyReasonCommentsSocial Work ServicesGas card programReferral ID StatusReasonStart DateExpiration DateVisits RequestedVisits [id number] Authorized367602TtjvdtGjlawmqbIbji and Neck CancerurgentReason CommentsCare CoordinationXrayReasonCommentsCare CoordinationPt UpdateReason CommentsNauseaRadiation CancelledReasonCommentsCare CoordinationHospital AdmissionReasonCommentsCare CoordinationDischarge Follow UpReasonCommentsHead and Neck CancerHospital Follow UpReasonCommentsOropharynx cancer1 week follow up ReasonCommentsNutrition TelephoneReasonCommentstongue cancer'follow upReason Onset DateCommentsRefill Puuvhly38/26/2022ReasonCommentstongue cancerFollow up ReasonCommentsHead and Neck CancerReasonCommentsHead and Neck CancerFollow up ReasonCommentsOrdersReasonOnset DateCommentsRefill Nkpkdxk4411/13/2022Reason CommentsRefill RequestReasonCommentsFollow-ch0rDlxhcyVnxwawclJmiq and Neck CancerFollow upReasonCommentsRadiology NMSpecialtyDiagnoses / ProceduresReferred By ContactReferred To ContactMOLECULAR & FUNCTIONAL IMAGING Diagnoses Cancer of base of tongue (HCC) Malaise and fatigue Procedures NM PET/CT SKULL-THIGH SUBSEQUENT PET IMAGING CT ATTENUATION SKULL BASE MID-THIGH Esdras Cash MD [address] [place] [address] [address] [place] [phone] [facility] [address] [place] [address] Referral IDStatusReasonStart DateExpiration DateVisits RequestedVisits [id number] Auto-Generated Referral /[id number] / ProceduresReferred By ContactReferred To ContactMOLECULAR & FUNCTIONAL IMAGING Diagnoses Cancer of base of tongue (HCC) Procedures NM PET/CT SKULL-THIGH SUBSEQUENT PET IMAGING CT ATTENUATION SKULL BASE MID-THIGH Esdras Cash MD [address] [place] [address] [place] [address] [facility] [address] [place] [address] Referral [facility]Status[facility] DateExpiration DateVisits RequestedVisits [id number] Auto-Generated Referral OON/Self Pay Override /[id number] CTSpecialtyDiagnoses / Procedures Referred By ContactReferred To ContactCT IMAGING Diagnoses Oropharnyx cancer (HCC) Procedures CT CHEST W IVCON DIAGNOSTIC COMPUTED TOMOGRAPHY THORAX W/CONTRAST Kathrine Carpenter MD [address] [place] [address] [place] [address] [facility] [place] [address] Referral IDStatusReasonStart DateExpiration DateVisits RequestedVisits [id number] Auto-Generated Referral 3/15/[id number] IDStatusReasonStart DateExpiration DateVisits RequestedVisits [id number] Auto-Generated Referral /[id number] CTSpecialtyDiagnoses / Procedures Referred By ContactReferred To ContactMOLECULAR & FUNCTIONAL IMAGING Diagnoses Oropharnyx cancer (HCC) Procedures NM PET/CT SKULL-THIGH SUBSEQUENT PET IMAGING CT ATTENUATION SKULL BASE MID-THIGH Kathrine Carpenter MD [address] [place] [address] [place] [address] [facility] [address] [place] [address] Referral IDStatusReasonStart DateExpiration DateVisits RequestedVisits [id number] Auto-Generated Referral /[id number] / ProceduresReferred By ContactReferred To ContactMOLECULAR & FUNCTIONAL IMAGING Diagnoses Malignant neoplasm of head, face and neck (HCC) Procedures NM PET/CT SKULL-THIGH SUBSEQUENT TUMOR IMAGING PET W/CONC CT SKULL-THIGH Kathrine Carpenter MD [address] [place] [address] [place] [address] [facility] [address] [place] [address] Referral IDStatusReasonStart DateExpiration DateVisits RequestedVisits [id number]/3/20211/2/510096ObjeclHctoibpiMygpJuokyjQmvik Date CommentsMed Ppnsze094ReasonCommentsPainReasonCommentsFollow-upEr f/u ReasonOnset DateCommentsMed Bpeklq414ReasonCommentsMed RefillReasonOnset DateCommentsRefill Mmgxhlm29/02/2024ReasonCommentsMedicare Annual Wellness Visit SubsequentWellnessReasonCommentsFollow-up6 monthSpecialtyDiagnoses / Procedures Referred By ContactReferred To ContactCardiology Diagnoses PVD (peripheral vascular disease) ([facility]) Procedures Follow Up In Cardiology Carmen Neely MD [address] [facility], [place] [address] [place] [address] Carmen Neely MD [address] [facility], [address] [address] Referral IDStatusReasonStart DateExpiration DateVisits RequestedVisits [id number]/3/20241/393083StnowbMzcvt DateCommentsMed Refill 4ReasonOnset DateCommentsMed Sspypx8201/05/2024easonCommentsFollow-up ReasonOnset UmrkFqvbghmzJcedq68/09/2025ReasonOnset DateCommentsMed Refill 05/26/2024ReasonCommentsFollow-upNeeds order for rollator walkerReasonComments PainNew PatientNumbnessSwellingReasonCommentsRadio Gen C37DzhihmcobPwaivthpb / ProceduresReferred By ContactReferred To ContactXR IMAGING Diagnoses Pain Procedures XR SHOULDER GENERAL 3V OR MORE AP/TRUE AP/OTHER RIGHT RADEX SHOULDER COMPLETE MINIMUM 2 VIEWS Hebert Miguel MD [address] [place] [address] Phone: tel: fax: [facility] [place] [address] Referral IDStatusReasonStart DateExpiration DateVisits RequestedVisits [id number] Auto-Generated Referral /[id number] DateCommentsMed Xpsdvl6406/24/2024ReasonOnset Date CommentsMed Ktyqkr5407/25/2024ReasonOnset DateCommentsSTROKE appt07/26/2024Reason Onset DateCommentsMed Dnmaqf2108/24/2024ReasonOnset DateCommentsMed Refill 09/06/2024ReasonOnset DateCommentsRefill Spyhcmr3009/06/2024ReasonComments Follow-upHospital f/up SOBReasonCommentsFollow-up6 month Follow up for Peripheral Vascular diseaseSpecialtyDiagnoses / ProceduresReferred By Contact Referred To ContactCardiology Diagnoses PVD (peripheral vascular disease) ([facility]) Procedures Follow Up In Cardiology Carmen Neely MD [address] [facility], [address] [address] Phone: tel: fax: Carmen Neely MD [address] [facility], [place] [address] [place] [address] Phone: tel: fax: Referral IDStatusReasonStart DateExpiration DateVisits RequestedVisits [id number]/16/20247/16/329128XbbihpEliaw DateCommentsMed Jfbbmb7909/19/2024ReasonCommentsFollow-ln6jRhst PainReasonOnset DateCommentsMed Uluxyn8911/16/2024ReasonCommentsFoot Pain64 yo [employer] presents today for concerns of left foot [...] Date Gildardo Lacy [address] [place] [address] PCP - GeneralFamily Practice07/16/20 Esdras Cash MD [address] [facility] [place] [address] PhysicianHematology/Oncology08/07/20 Nathaly Biggs APRN.SPOTTER [address] [place] [address] Nurse PractitionerHematology/Oncology08/07/20 Cynthia Cutler, SCOTT [address] [facility] [place] [address] Specialty Care CoordinatorHematology/Oncology08/07/20 Kathrine Carpenter MD [address] [facility] [place] [address] PhysicianRadiation Oncology08/07/20Team MemberRelationshipSpecialtyStart DateEnd Date Gildardo Lacy [address] [facility] [place] [address] PCP - GeneralFamily Practice07/16/20 Esdras Cash MD [address] [facility] [place] [address] PhysicianHematology/Oncology08/07/20 Nathaly Biggs, HUMIDIFIER MAINTENANCE WORKER.SPOTTER [address] [facility] [place] [address] Nurse PractitionerHematology/Oncology08/07/20 Cynthia Cutler, SCOTT [address] [facility] [place] [address] Specialty Care CoordinatorHematology/Oncology08/07/20 Kathrine Carpenter MD [address] [place] [address] PhysicianRadiation Oncology08/07/20Team MemberRelationshipSpecialtyStart DateEnd Date Gildardo Lacy [address] [place] [address] PCP - GeneralFamily Practice07/16/20 Esdras Cash MD [address] [facility] [place] [address] PhysicianHematology/Oncology08/07/20 Nathaly Biggs, HUMIDIFIER MAINTENANCE WORKER.SPOTTER [address] [facility] [address] [facility] [address] [place], [place] [address] Nurse PractitionerHematology/Oncology08/07/20 Cynthia Cutler, RN [address] [place] [address] Specialty Care CoordinatorHematology/Oncology08/07/20 Kathrine Carpenter MD [address] [place] [address] PhysicianRadiation Oncology08/07/20Team MemberRelationshipSpecialtyStart DateEnd Date Gildardo Lacy [address] [place] [address] PCP - GeneralS[facility]07/16/20 Esdras Cash MD [address] [place] [address] PhysicianHematology/Oncology08/07/20 Nathaly Biggs, ALEXY.SPOTTER [address] [place] [address] Nurse PractitionerHematology/Oncology08/07/20 Cynthia Cutler, RN [address] [place] [address] Specialty Care CoordinatorHematology/Oncology08/07/20 Kathrine Carpenter MD [address] [place] [address] PhysicianRadiation Oncology08/07/20Team MemberRelationshipSpecialtyStart DateEnd Date Gildardo Lacy [address] [place] [address] PCP - General[facility]07/16/20 Esdras Cash MD [address] [place] [address] PhysicianHematology/Oncology08/07/20 Nathaly Biggs, HUMIDIFIER MAINTENANCE WORKER.[facility] [address] [place] [address] Nurse PractitionerHematology/Oncology08/07/20 Cynthia Cutler, SCOTT [address] [place] [address] Specialty Care CoordinatorHematology/Oncology08/07/20 Kathrine Carpenter MD [address] [place] [address] PhysicianRadiation Oncology08/07/20Team MemberRelationshipSpecialtyStart DateEnd Date Gildardo Lacy [address] [place] [address] PCP - GeneralBoston [facility]07/16/20 Esdras Cash MD [address] [place] [address] PhysicianHematology/Oncology08/07/20 Nathaly Biggs, HUMIDIFIER MAINTENANCE WORKER.SPOTTER [address] [place] [address] Nurse PractitionerHematology/Oncology08/07/20 Cynthia Cutler, SCOTT [address] [place] [address] Specialty Care CoordinatorHematology/Oncology08/07/20 Kathrine Carpenter MD [address] [place] [address] PhysicianRadiation Oncology08/07/20Team MemberRelationshipSpecialtyStart DateEnd Date Gildardo Lacy [address] [place] [address] PCP - GeneralFamily Practice07/16/20 Esdras Cash MD [address] [place] [address] PhysicianHematology/Oncology08/07/20 Nathaly Biggs, HUMIDIFIER MAINTENANCE WORKER.[facility] [address] [place] [address] Nurse PractitionerHematology/Oncology08/07/20 Cynthia Cutler, RN [address] [place] [address] Specialty Care CoordinatorHematology/Oncology08/07/20 Kathrine Carpenter MD [address] [place] [address] PhysicianRadiation Oncology08/07/20Team MemberRelationshipSpecialtyStart DateEnd Date Gildardo Lacy [facility] [place] [address] PCP - GeneralFamily Practice07/16/20 Esdras Cash MD [address] [place] [address] PhysicianHematology/Oncology08/07/20 Nathaly Biggs, HUMIDIFIER MAINTENANCE WORKER.[facility] [address] [place] [address] Nurse PractitionerHematology/Oncology08/07/20 Cynthia Cutler, RN [address] [place] [address] Specialty Care CoordinatorHematology/Oncology08/07/20 Kathrine Carpenter MD [address] [place] [address] PhysicianRadiation Oncology08/07/20Team MemberRelationshipSpecialtyStart DateEnd Date Gildardo Lacy [address] [place] [address] PCP - GeneralFamily Practice07/16/20 Esdras Cash MD [address] [place] [address] PhysicianHematology/Oncology08/07/20 Nathaly Biggs, HUMIDIFIER MAINTENANCE WORKER.SPOTTER [address] [place] [address] Nurse PractitionerHematology/Oncology08/07/20 Cynthia Cutler, RN [address] [place] [address] Specialty Care CoordinatorHematology/Oncology08/07/20 Kathrine Carpenter MD [address] [place] [address] PhysicianRadiation Oncology08/07/20Team MemberRelationshipSpecialtyStart DateEnd Date Gildardo Lacy [address] [place] [address] PCP - GeneralFamily Practice07/16/20 Esdras Cash MD [address] [place] [address] PhysicianHematology/Oncology08/07/20 Nathaly Biggs, HUMIDIFIER MAINTENANCE WORKER.SPOTTER [address] [place] [address] Nurse PractitionerHematology/Oncology08/07/20 Cynthia Cutler, SCOTT [address] [place] [address] Specialty Care CoordinatorHematology/Oncology08/07/20 Kathrine Carpenter MD [address] [facility] [place] [address] PhysicianRadiation Oncology08/07/20Team MemberRelationshipSpecialtyStart DateEnd Date Gildardo Lacy [address] [place] [address] PCP - GeneralFamily Practice07/16/20 Esdras Cash MD [address] [place] [address] PhysicianHematology/Oncology08/07/20 Nathaly Biggs, HUMIDIFIER MAINTENANCE WORKER.SPOTTER [address] [place] [address] Nurse PractitionerHematology/Oncology08/07/20 Cynthia Cutler, SCOTT [address] [place] [address] Specialty Care CoordinatorHematology/Oncology08/07/20 Kathrine Carpenter MD [address] [facility] [place] [address] PhysicianRadiation Oncology08/07/20Team MemberRelationshipSpecialtyStart DateEnd Date Gildardo Lacy [address] [place] [address] PCP - GeneralFamily Practice07/16/20 Esdras Cash MD [address] [place] [address] PhysicianHematology/Oncology08/07/20 Nathaly Biggs, HUMIDIFIER MAINTENANCE WORKER.SPOTTER [address] [place] [address] Nurse PractitionerHematology/Oncology08/07/20 Cynthia Cutler, RN [address] [place] [address] Specialty Care CoordinatorHematology/Oncology08/07/20 Kathrine Carpenter MD [address] [place] [address] PhysicianRadiation Oncology08/07/20Team MemberRelationshipSpecialtyStart DateEnd Date Gildardo Lacy [address] [place] [address] PCP - GeneralFamily Practice07/16/20 Esdras Cash MD [address] [place] [address] PhysicianHematology/Oncology08/07/20 Nathaly Biggs, HUMIDIFIER MAINTENANCE WORKER.SPOTTER [address] [place] [address] Nurse PractitionerHematology/Oncology08/07/20 Cynthia Cutler, SCOTT [address] [place] [address] Specialty Care CoordinatorHematology/Oncology08/07/20 Kathrine Carpenter MD [address] [place] [address] PhysicianRadiation Oncology08/07/20Te MemberRelationshipSpecialtyStart DateEnd Date Gildardo Lacy [address] [place] [address] PCP - GeneralFamily Practice07/16/20 Esdras Cash MD [address] [facility] [place] [address] PhysicianHematology/Oncology08/07/20 Nathaly Biggs, HUMIDIFIER MAINTENANCE WORKER.SPOTTER [address] [place] [address] Nurse PractitionerHematology/Oncology08/07/20 Cynthia Cutler, RN [address] [place] [address] Specialty Care CoordinatorHematology/Oncology08/07/20 Kathrine Carpenter MD [address] [place] [address] PhysicianRadiation Oncology08/07/20Team MemberRelationshipSpecialtyStart DateEnd Date Gildardo Lacy [address] [place] [address] PCP - GeneralFamily Practice07/16/20 Esdras Cash MD [address] [place] [address] PhysicianHematology/Oncology08/07/20 Nathaly Biggs, HUMIDIFIER MAINTENANCE WORKER.SPOTTER [address] [place] [address] Nurse PractitionerHematology/Oncology08/07/20 Cynthia Cutler, RN [address] [place] [address] Specialty Care CoordinatorHematology/Oncology08/07/20 Kathrine Carpenter MD [address] [place] [address] PhysicianRadiation Oncology08/07/20Team MemberRelationshipSpecialtyStart DateEnd Date Gildardo Lacy [address] [place] [address] PCP - GeneralFamily Practice07/16/20 Esdras Cash MD [address] [place] [address] PhysicianHematology/Oncology08/07/20 Nathaly Biggs, HUMIDIFIER MAINTENANCE WORKER.[facility] [address] [place] [address] Nurse PractitionerHematology/Oncology08/07/20 Cynthia Cutler, SCOTT [address] [place] [address] Specialty Care CoordinatorHematology/Oncology08/07/20 Kathrine Carpenter MD [address] [place] [address] PhysicianRadiation Oncology08/07/20Team MemberRelationshipSpecialtyStart DateEnd Date Gildardo Lacy [address] [place] [address] PCP - General[facility]07/16/20 Esdras Cash MD [address] [place] [address] PhysicianHematology/Oncology08/07/20 Nathaly Biggs, HUMIDIFIER MAINTENANCE WORKER.SPOTTER [address] [facility] [place] [address] Nurse PractitionerHematology/Oncology08/07/20 Cynthia Cutler, SCOTT [address] [place] [address] Specialty Care CoordinatorHematology/Oncology08/07/20 Kathrine Carpenter MD [address] [place] [address] PhysicianRadiation Oncology08/07/20Team MemberRelationshipSpecialtyStart DateEnd Date Gildardo Lacy [address] [place] [address] PCP - GeneralFamily Practice07/16/20 Esdras Cash MD [address] [facility] [address] [facility] [address] [place], [place] [address] PhysicianHematology/Oncology08/07/20 Nathaly Biggs, HUMIDIFIER MAINTENANCE WORKER.SPOTTER [address] [facility] [facility] [place] [address] Nurse PractitionerHematology/Oncology08/07/20 Cynthia Cutler, RN [address] [place] [address] Specialty Care CoordinatorHematology/Oncology08/07/20 Kathrine Carpenter MD [address] [place] [address] PhysicianRadiation Oncology08/07/20Team MemberRelationshipSpecialtyStart DateEnd Date Gildardo Lacy [address] [facility] [place] [address] PCP - GeneralFamily Practice07/16/20 Esdras Cash MD [address] [place] [address] PhysicianHematology/Oncology08/07/20 Ntahaly Biggs, HUMIDIFIER MAINTENANCE WORKER.SPOTTER [address] [place] [address] Nurse PractitionerHematology/Oncology08/07/20 Cynthia Cutler, RN [address] [place] [address] Specialty Care CoordinatorHematology/Oncology08/07/20 Kathrine Carpenter MD [address] [place] [address] PhysicianRadiation Oncology08/07/20Team MemberRelationshipSpecialtyStart DateEnd Date Gildardo Lacy [address] [place] [address] PCP - GeneralFamily Practice07/16/20 Esdras Cash MD [address] [place] [address] PhysicianHematology/Oncology08/07/20 Nathaly Biggs, HUMIDIFIER MAINTENANCE WORKER.SPOTTER [address] [facility] [place] [address] Nurse PractitionerHematology/Oncology08/07/20 Cynthia Cutler, SCOTT [address] [place] [address] Specialty Care CoordinatorHematology/Oncology08/07/20 Kathrine Carpenter MD [address] [place] [address] PhysicianRadiation Oncology08/07/20Te MemberRelationshipSpecialtyStart DateEnd Date Gildardo Lacy [address] [place] [address] PCP - GeneralFamily Practice07/16/20 Esdras Cash MD [address] [place] [address] PhysicianHematology/Oncology08/07/20 Nathaly Biggs, HUMIDIFIER MAINTENANCE WORKER.SPOTTER [address] [place] [address] Nurse PractitionerHematology/Oncology08/07/20 Cynthia Cutler, RN [address] [facility] [place] [address] Specialty Care CoordinatorHematology/Oncology08/07/20 Kathrine Carpenter MD [address] [facility] [place] [address] PhysicianRadiation Oncology08/07/20Team MemberRelationshipSpecialtyStart DateEnd Date Gildardo Lacy [address] [place] [address] PCP - GeneralFamily Practice07/16/20 Esdras Cash MD [address] [facility] [facility] [place] [address] PhysicianHematology/Oncology08/07/20 Nathaly Biggs, HUMIDIFIER MAINTENANCE WORKER.SPOTTER [address] [facility] [place] [address] Nurse PractitionerHematology/Oncology08/07/20 Cynthia Cutler, SCOTT [address] [facility] [place] [address] Specialty Care CoordinatorHematology/Oncology08/07/20 Kathrine Carpenter MD [address] [place] [address] PhysicianRadiation Oncology08/07/20Te MemberRelationshipSpecialtyStart DateEnd Date Gildardo Lacy [address] [address] PCP - GeneralFamily Practice07/16/20 Esdras Cash MD [address] [facility] [facility] [place] [address] PhysicianHematology/Oncology08/07/20 Nathaly Biggs, HUMIDIFIER MAINTENANCE WORKER.SPOTTER [address] [facility] [facility] [place] [address] Nurse PractitionerHematology/Oncology08/07/20 Cynthia Cutler, SCOTT [address] [facility] [place] [address] Specialty Care CoordinatorHematology/Oncology08/07/20 Kathrine Carpenter MD [address] [place] [address] PhysicianRadiation Oncology08/07/20Team MemberRelationshipSpecialtyStart DateEnd Date Gildardo Lacy [address] [place] [address] PCP - GeneralFamily Practice07/16/20 Esdras Cash MD [address] [facility] [facility] [place] [address] PhysicianHematology/Oncology08/07/20 Nathaly Biggs, HUMIDIFIER MAINTENANCE WORKER.SPOTTER [address] [facility] [facility] [place] [address] Nurse PractitionerHematology/Oncology08/07/20 Cynthia Cutler, SCOTT [address] [place] [address] Specialty Care CoordinatorHematology/Oncology08/07/20 Kathrine Carpenter MD [address] [facility] [place] [address] PhysicianRadiation Oncology08/07/20 Amira Powell LSW Social Worker09/16/21Team MemberRelationshipSpecialtyStart DateEnd Date Gildardo Lacy [address] [place] [address] PCP - GeneralFamily Practice07/16/20 Esdras Cash MD [address] [facility] [facility] [place] [address] PhysicianHematology/Oncology08/07/20 Nathaly Biggs, HUMIDIFIER MAINTENANCE WORKER.SPOTTER [address] [facility] [facility] [address] [place], [place] [address] Nurse PractitionerHematology/Oncology08/07/20 Cynthia Cutler, SCOTT [address] [place] [address] Specialty Care CoordinatorHematology/Oncology08/07/20 Kathrine Carpenter MD [address] [facility] [place] [address] PhysicianRadiation Oncology08/07/20 Amira Powell, ENVIRONMENTAL PERMITTING SPECIALIST Social Worker09/16/21Team MemberRelationshipSpecialtyStart DateEnd Date Gildardo Lacy [address] [place] [address] PCP - General[facility]07/16/20 Esdras Cash MD [address] [facility] [facility] [place] [address] PhysicianHematology/Oncology08/07/20 Nathaly Biggs, HUMIDIFIER MAINTENANCE WORKER.SPOTTER [address] [facility] [facility] [place] [address] Nurse PractitionerHematology/Oncology08/07/20 Cynthia Cutler, RN [address] [facility] [place] [address] Specialty Care CoordinatorHematology/Oncology08/07/20 Kathrine Carpenter MD [address] [facility] [place] [address] PhysicianRadiation Oncology08/07/20 Amira Powell, REINALDO Social Worker09/16/21Team MemberRelationshipSpecialtyStart DateEnd Date Gildardo Lacy [address] [place] [address] PCP - GeneralFamily Practice07/16/20 Esdras Cash MD [address] [facility] [facility] [place] [address] PhysicianHematology/Oncology08/07/20 Nathaly Biggs, HUMIDIFIER MAINTENANCE WORKER.SPOTTER [address] [facility] [place] [address] Nurse PractitionerHematology/Oncology08/07/20 Cynthia Cutler, RN [address] [facility] [place] [address] Specialty Care CoordinatorHematology/Oncology08/07/20 Kathrine Carpenter MD [address] [facility] [facility] [place] [address] PhysicianRadiation Oncology08/07/20 Amira Powell LSW Social Worker09/16/21Team MemberRelationshipSpecialtyStart DateEnd Date Gildardo Lacy [address] [place] [address] PCP - GeneralFamily Practice07/16/20 Esdras Cash MD [address] [facility] [place] [address] PhysicianHematology/Oncology08/07/20 Nathaly Biggs, HUMIDIFIER MAINTENANCE WORKER.SPOTTER [address] [facility] [place] [address] Nurse PractitionerHematology/Oncology08/07/20 Cynthia Cutler, RN [address] [facility] [place] [address] Specialty Care CoordinatorHematology/Oncology08/07/20 Kathrine Carpenter MD [address] [facility] [facility] [place] [address] PhysicianRadiation Oncology08/07/20 Amira Powell [facility] Social Worker09/16/21Team MemberRelationshipSpecialtyStart DateEnd Date Gildardo Lacy [address] [place] [address] PCP - GeneralFamily Practice07/16/20 Esdras Cash MD [address] [facility] [place] [address] PhysicianHematology/Oncology08/07/20 Nathaly Biggs, HUMIDIFIER MAINTENANCE WORKER.SPOTTER [address] [facility] [facility] [place] [address] Nurse PractitionerHematology/Oncology08/07/20 Cynthia Cutler, SCOTT [address] [facility] [facility] [place] [address] Specialty Care CoordinatorHematology/Oncology08/07/20 Kathrine Carpenter MD [address] [facility] [facility] [place] [address] PhysicianRadiation Oncology08/07/20 Amira Powell, [facility] Social Worker09/16/21Team MemberRelationshipSpecialtyStart DateEnd Date Gildardo Lacy [address] [place] [address] PCP - GeneralFamily Practice07/16/20 Esdras Cash MD [address] [facility] [place] [address] PhysicianHematology/Oncology08/07/20 Nathaly Biggs, HUMIDIFIER MAINTENANCE WORKER.SPOTTER [address] [facility] [place] [address] Nurse PractitionerHematology/Oncology08/07/20 Cynthia Cutler, RN [address] [facility] [facility] [place] [address] Specialty Care CoordinatorHematology/Oncology08/07/20 Kathrine Carpenter MD [address] [facility] [facility] [place] [address] PhysicianRadiation Oncology08/07/20 Amira Powell LSW Social Worker09/16/21Team MemberRelationshipSpecialtyStart DateEnd Date Gildardo Lacy [address] [place] [address] PCP - GeneralFamily Practice07/16/20 Esdras Cash MD [address] [facility] [place] [address] PhysicianHematology/Oncology08/07/20 Nathaly Biggs, HUMIDIFIER MAINTENANCE WORKER.SPOTTER [address] [facility] [facility] [place] [address] Nurse PractitionerHematology/Oncology08/07/20 Cynthia Cutler, RN [address] [facility] [facility] [place] [address] Specialty Care CoordinatorHematology/Oncology08/07/20 Kathrine Carpenter MD [address] [facility] [facility] [place] [address] PhysicianRadiation Oncology08/07/20 Amira Powell LSW Social Worker09/16/21Team MemberRelationshipSpecialtyStart DateEnd Date Gildardo Lacy [address] [place] [address] PCP - GeneralFamily Practice07/16/20 Esdras Cash MD [address] [facility] [facility] [place] [address] PhysicianHematology/Oncology08/07/20 Nathaly Biggs, HUMIDIFIER MAINTENANCE WORKER.[facility] [address] [place] [address] Nurse PractitionerHematology/Oncology08/07/20 Cynthia Cutler, SCOTT [address] [facility] [place] [address] Specialty Care CoordinatorHematology/Oncology08/07/20 Kathrine Carpenter MD [address] [facility] [place] [address] PhysicianRadiation Oncology08/07/20 Amira Powell, REINALDO Social Worker09/16/21Team MemberRelationshipSpecialtyStart DateEnd Date Gildardo Lacy [facility] [place] [address] PCP - GeneralFamily Practice07/16/20 Esdras Cash MD [address] [facility] [facility] [place] [address] PhysicianHematology/Oncology08/07/20 Nathaly Biggs, HUMIDIFIER MAINTENANCE WORKER.[facility] [address] [facility] [facility] [place] [address] Nurse PractitionerHematology/Oncology08/07/20 Cynthia Cutler, SCOTT [address] [facility] [place] [address] Specialty Care CoordinatorHematology/Oncology08/07/20 Kathrine Carpenter MD [address] [facility] [place] [address] PhysicianRadiation Oncology08/07/20 Amira Powell LSW Social Worker09/16/21Team MemberRelationshipSpecialtyStart DateEnd Date Gildardo Lacy [address] [place] [address] PCP - GeneralFamily Practice07/16/20 Esdras Cash MD [address] [facility] [place] [address] PhysicianHematology/Oncology08/07/20 Nathaly Biggs, HUMIDIFIER MAINTENANCE WORKER.SPOTTER [address] [facility] [place] [address] Nurse PractitionerHematology/Oncology08/07/20 Cynthia Cutler, SCOTT [address] [facility] [place] [address] Specialty Care CoordinatorHematology/Oncology08/07/20 Kathrine Carpenter MD [address] [facility] [facility] [place] [address] PhysicianRadiation Oncology08/07/20 Amira Powell LSW Social Worker09/16/21Team MemberRelationshipSpecialtyStart DateEnd Date Gildardo Lacy [address] [place] [address] PCP - GeneralFamily Practice07/16/20 Esdras Cash MD [address] [facility] [place] [address] PhysicianHematology/Oncology08/07/20 Nathaly Biggs, HUMIDIFIER MAINTENANCE WORKER.SPOTTER [address] [facility] [place] [address] Nurse PractitionerHematology/Oncology08/07/20 Cynthia Cutler, RN [address] [facility] [place] [address] Specialty Care CoordinatorHematology/Oncology08/07/20 Kathrine Carpenter MD [address] [facility] [facility] [place] [address] PhysicianRadiation Oncology08/07/20 Amira Powell, ENVIRONMENTAL PERMITTING SPECIALIST Social Worker09/16/21Team MemberRelationshipSpecialtyStart DateEnd Date Gildardo Lacy [address] [place] [address] PCP - [facility]07/16/20 Esdras Cash MD [address] [facility] [place] [address] PhysicianHematology/Oncology08/07/20 Nathaly Biggs, HUMIDIFIER MAINTENANCE WORKER.SPOTTER [address] [facility] [place] [address] Nurse PractitionerHematology/Oncology08/07/20 Cynthia Cutler, SCOTT [address] [facility] [facility] [place] [address] Specialty Care CoordinatorHematology/Oncology08/07/20 Kathrine Carpenter MD [address] [facility] [facility] [place] [address] PhysicianRadiation Oncology08/07/20 Amira Powell, [facility] Social Worker09/16/21Team MemberRelationshipSpecialtyStart DateEnd Date Gildardo Lacy [address] [place] [address] PCP - General[facility]07/16/20 Esdras Cash MD [address] [facility] [place] [address] PhysicianHematology/Oncology08/07/20 Nathaly Biggs, HUMIDIFIER MAINTENANCE WORKER.SPOTTER [address] [facility] [place] [address] Nurse PractitionerHematology/Oncology08/07/20 Cynthia Cutler, RN [address] [facility] [place] [address] Specialty Care CoordinatorHematology/Oncology08/07/20 Kathrine Carpenter MD [address] [facility] [facility] [place] [address] PhysicianRadiation Oncology08/07/20 Amira Powell [facility] Social Worker09/16/21Team MemberRelationshipSpecialtyStart DateEnd Date Gildardo Lacy [address] [place] [address] PCP - [facility]07/16/20 Esdras Cash MD [address] [place] [address] PhysicianHematology/Oncology08/07/20 Nathaly Biggs, HUMIDIFIER MAINTENANCE WORKER.SPOTTER [address] [place] [address] Nurse PractitionerHematology/Oncology08/07/20 Cynthia Cutler, RN [address] [place] [address] Specialty Care CoordinatorHematology/Oncology08/07/20 Kathrine Carpenter MD [address] [place] [address] PhysicianRadiation Oncology08/07/20 Amira Powell ENVIRONMENTAL PERMITTING SPECIALIST Social Worker09/16/21Team MemberRelationshipSpecialtyStart DateEnd Date Gildardo Lacy [address] [place] [address] PCP - GeneralSpencer Hospitally Medicine07/16/20 Esdras Cash MD [address] [facility] [address] [place], [place] [address] PhysicianHematology/Oncology08/07/20 Nathaly Biggs, HUMIDIFIER MAINTENANCE WORKER.SPOTTER [address] [facility] [facility] [place] [address] Nurse PractitionerHematology/Oncology08/07/20 Cynthia Cutler, RN [address] [facility] [facility] [place] [address] Specialty Care CoordinatorHematology/Oncology08/07/20 Kathrine Carpenter MD [address] [facility] [facility] [place] [address] PhysicianRadiation Oncology08/07/20 Amira Powell LSW Social Worker09/16/21Team MemberRelationshipSpecialtyStart DateEnd Date Gildardo Lacy [place] [facility] [place] [address] PCP - GeneralFamily Medicine07/16/20 Esdras Cash MD [address] [facility] [facility] [place] [address] PhysicianHematology/Oncology08/07/20 Nathaly Biggs, HUMIDIFIER MAINTENANCE WORKER.SPOTTER [address] [facility] [facility] [place] [address] Nurse PractitionerHematology/Oncology08/07/20 Cynthia Cutler, RN [address] [facility] [facility] [place] [address] Specialty Care CoordinatorHematology/Oncology08/07/20 Kathrine Carpenter MD [address] [facility] [facility] [place] [address] PhysicianRadiation Oncology08/07/20 Amira Powell LSW Social Worker09/16/21Team MemberRelationshipSpecialtyStart DateEnd Date Gildardo Lacy [address] [place] [address] PCP - GeneralSpencer Hospitally Medicine07/16/20 Esdras Cash MD [address] [facility] [facility] [address] [address] [place], [place] [address] PhysicianHematology/Oncology08/07/20 Nathaly Biggs, HUMIDIFIER MAINTENANCE WORKER.SPOTTER [address] [facility] [facility] [place] [address] Nurse PractitionerHematology/Oncology08/07/20 Cynthia Cutler, SCOTT [address] [facility] [facility] [place] [address] Specialty Care CoordinatorHematology/Oncology08/07/20 Kathrine Carpenter MD [address] [facility] [facility] [address] [address] [place], [place] [address] PhysicianRadiation Oncology08/07/20 Amira Powell [facility] Social Worker09/16/21Team MemberRelationshipSpecialtyStart DateEnd Date Gildardo Lacy [address] [place] [address] PCP - GeneralSpencer Hospitally Medicine07/16/20 Esdras Cash MD [address] [facility] [place] [address] PhysicianHematology/Oncology08/07/20 Nathaly Biggs, HUMIDIFIER MAINTENANCE WORKER.SPOTTER [address] [facility] [address] [facility] [address] [place], [place] [address] Nurse PractitionerHematology/Oncology08/07/20 Cynthia Cutler, RN [address] [facility] [facility] [place] [place] [address] Specialty Care CoordinatorHematology/Oncology08/07/20 Kathrine Carpenter MD [address] [facility] [facility] [place] [address] PhysicianRadiation Oncology08/07/20 Amira Powell LSW Social Worker09/16/21Team MemberRelationshipSpecialtyStart DateEnd Date Gildardo Lacy [address] [place] [address] PCP - GeneralFaarly Medicine07/16/20 Esdras Cash MD [address] [place] [address] PhysicianHematology/Oncology08/07/20 Nathaly Biggs, HUMIDIFIER MAINTENANCE WORKER.SPOTTER [address] [facility] [place] [address] Nurse PractitionerHematology/Oncology08/07/20 Cynthia Cutler, SCOTT [address] [facility] [facility] [place] [address] Specialty Care CoordinatorHematology/Oncology08/07/20 Kathrine Carpenter MD [address] [facility] [facility] [place] [address] PhysicianRadiation Oncology08/07/20 Amira Powell LSW Social Worker09/16/21Team MemberRelationshipSpecialtyStart DateEnd Date Gildardo Lacy [address] [place] [address] PCP - GeneralFamily Medicine07/16/20 Esdras Cash MD [address] [place] [address] PhysicianHematology/Oncology08/07/20 Nathaly Biggs, HUMIDIFIER MAINTENANCE WORKER.SPOTTER [address] [facility] [facility] [place] [address] Nurse PractitionerHematology/Oncology08/07/20 Cynthia Cutler, SCOTT [address] [facility] [place] [address] Specialty Care CoordinatorHematology/Oncology08/07/20 Kathrine Carpenter MD [address] [facility] [facility] [place] [address] PhysicianRadiation Oncology08/07/20 Amira Powell LSW Social Worker09/16/21Team MemberRelationshipSpecialtyStart DateEnd Date Gildardo Lacy [address] [facility] [place] [address] PCP - GeneralSpencer Hospitally Medicine07/16/20 Esdras Cash MD [address] [place] [address] PhysicianHematology/Oncology08/07/20 Nathaly Biggs, HUMIDIFIER MAINTENANCE WORKER.SPOTTER [address] [facility] [facility] [place] [address] Nurse PractitionerHematology/Oncology08/07/20 Kathrine Carpenter MD [address] [place] [address] PhysicianRadiation Oncology08/07/20 Amira Powell LSW Social Worker09/16/21Team MemberRelationshipSpecialtyStart DateEnd Date Gildardo Lacy MD PCP - General05/04/99Team MemberRelationshipSpecialtyStart DateEnd Date Gildardo Lacy [address] [place] [address] PCP - [facility] Medicine07/16/20 Esdras Cash MD [address] [facility] [place] [address] PhysicianHematology/Oncology08/07/20 Nathaly Biggs, HUMIDIFIER MAINTENANCE WORKER.SPOTTER [address] [facility] [facility] [place] [address] Nurse PractitionerHematology/Oncology08/07/20 Kathrine Carpenter MD [address] [facility] [facility] [place] [address] PhysicianRadiation Oncology08/07/20 Amira Powell, [facility] Social Worker09/16/21Team MemberRelationshipSpecialtyStart DateEnd Date Gildardo Lacy [address] [place] [address] PCP - GeneralSpencer Hospitally Medicine07/16/20 Esdras Cash MD [address] [facility] [facility] [place] [address] PhysicianHematology/Oncology08/07/20 Nathaly Biggs, HUMIDIFIER MAINTENANCE WORKER.SPOTTER [address] [facility] [facility] [place] [address] Nurse PractitionerHematology/Oncology08/07/20 Kathrine Carpenter MD [address] [place] [address] [place] [address] PhysicianRadiation Oncology08/07/20 Amira Powell, ENVIRONMENTAL PERMITTING SPECIALIST Social Worker09/16/21Team MemberRelationshipSpecialtyStart DateEnd Date Gildardo Lacy [address] [place] [address] PCP - GeneralFamily Medicine07/16/20 Esdras Cash MD [address] [place] [address] [place] [address] PhysicianHematology/Oncology08/07/20 Nathaly Biggs APRN.SPOTTER [address] [place] [address] [place] [address] Nurse PractitionerHematology/Oncology08/07/20 Kathrine Carpenter MD [address] [place] [address] [place] [address] PhysicianRadiation Oncology08/07/20 Amira Powell, [facility] Social Worker09/16/21 Team Status: Active Member Role Status Dates Gildardo Lacy MD Primary Care Provider Active Team Status: Inactive Member Role Status Dates Gildardo Lacy MD Primary Care Provider Active S tart: September 08, 2023 End: September 08, 2023HaRaven Lewending ProviderActiveStart: September 08, 2023 End: September 08, 2023Team MemberRelationshipSpecialtyStart DateEnd Date Gildardo Lacy [address] [place] [address] PCP - GeneralFamily Medicine07/16/20 Esdras Cash MD [address] [facility] [place] [address] PhysicianHematology/Oncology08/07/20 Nathaly Biggs, HUMIDIFIER MAINTENANCE WORKER.SPOTTER [address] [facility] [place] [address] Nurse PractitionerHematology/Oncology08/07/20 Kathrine Carpenter MD [address] [facility] [place] [address] PhysicianRadiation Oncology08/07/20 Amira Powell, ENVIRONMENTAL PERMITTING SPECIALIST Social Worker09/16/21Team MemberRelationshipSpecialtyStart DateEnd Date Gildardo Lacy [address] [place] [address] PCP - Generalmily Medicine07/16/20 Esdras Cash MD [address] [place] [address] PhysicianHematology/Oncology08/07/20 Nathaly Biggs, HUMIDIFIER MAINTENANCE WORKER.SPOTTER [address] [facility] [facility] [place] [address] Nurse PractitionerHematology/Oncology08/07/20 Kathrine Carpenter MD [address] [place] [address] PhysicianRadiation Oncology08/07/20 Amira Powell, ENVIRONMENTAL PERMITTING SPECIALIST Social Worker09/16/21Team MemberRelationshipSpecialtyStart DateEnd Date Gildardo Lacy [address] [place] [address] PCP - GeneralFamily Medicine07/16/20 Esdras Cash MD [address] [facility] [facility] [place] [address] PhysicianHematology/Oncology08/07/20 Nathaly Biggs, HUMIDIFIER MAINTENANCE WORKER.SPOTTER [address] [facility] [facility] [place] [address] Nurse PractitionerHematology/Oncology08/07/20 Cynthia Cutler, SCOTT [address] [facility] [facility] [place] [address] Specialty Care CoordinatorHematology/Oncology08/07/2110 Kathrine Carpenter MD [address] [place] [address] [place] [address] PhysicianRadiation Oncology08/07/20 Amira Powell LSW Social Worker09/16/21Team MemberRelationshipSpecialtyStart DateEnd Date Gildardo Lacy [address] [place] [address] PCP - GeneralFamily Medicine07/16/20 Esdras Cash MD [address] [place] [address] [place] [address] PhysicianHematology/Oncology08/07/20 Nathaly Biggs, HUMIDIFIER MAINTENANCE WORKER.SPOTTER [address] [facility] [place] [address] Nurse PractitionerHematology/Oncology08/07/20 Cynthia Cutler, SCOTT [address] [facility] [place] [address] Specialty Care CoordinatorHematology/Oncology08/07/2110 Kathrine Carpenter MD [address] [facility] [place] [address] PhysicianRadiation Oncology08/07/20 Amira Powell LSW Social Worker09/16/21Team MemberRelationshipSpecialtyStart DateEnd Date Gildardo Lacy [address] [place] [address] PCP - GeneralFaarly Medicine07/16/20 Esdras Cash MD [address] [facility] [place] [address] PhysicianHematology/Oncology08/07/20 Nathaly Biggs, ALEXY.SPOTTER [address] [facility] [facility] [place] [address] Nurse PractitionerHematology/Oncology08/07/20 Cynthia Cutler, RN [address] [facility] [facility] [place] [address] Specialty Care CoordinatorHematology/Oncology08/07/2110 Kathrine Carpenter MD [address] [facility] [facility] [place] [address] PhysicianRadiation Oncology08/07/20 Amira Powell LSW Social Worker09/16/21Team MemberRelationshipSpecialtyStart DateEnd Date Gildardo Lacy [address] [place] [address] PCP - Generalmily Medicine07/16/20 Esdras Cash MD [address] [facility] [place] [address] PhysicianHematology/Oncology08/07/20 Nathaly Biggs, HUMIDIFIER MAINTENANCE WORKER.SPOTTER [address] [facility] [place] [address] Nurse PractitionerHematology/Oncology08/07/20 Cynthia Cutler, RN [address] [facility] [facility] [place] [address] Specialty Care CoordinatorHematology/Oncology08/07/2110 Kathrine Carpenter MD [address] [place] [address] [place] [address] PhysicianRadiation Oncology08/07/20Team MemberRelationshipSpecialtyStart DateEnd Date Gildardo Lacy [address] [place] [place] [address] PCP - GeneralFamily Medicine07/16/20 Esdras Cash MD [address] [place] [address] [place] [address] PhysicianHematology/Oncology08/07/20 Nathaly Biggs, HUMIDIFIER MAINTENANCE WORKER.SPOTTER [address] [facility] [place] [address] Nurse PractitionerHematology/Oncology08/07/20 Cynthia Cutler, RN [address] [facility] [place] [address] Specialty Care CoordinatorHematology/Oncology08/07/2110 Kathrine Carpenter MD [address] [place] [address] [place] [address] PhysicianRadiation Oncology08/07/20Team MemberRelationshipSpecialtyStart DateEnd Date Gildardo Lacy MD [address] [place] [address] PCP - GeneralCardiology09/12/22Team MemberRelationshipSpecialtyStart DateEnd Date Gildardo Lacy MD [address] [place] [address] PCP - GeneralCardiology09/12/22Team MemberRelationshipSpecialtyStart DateEnd Date Gildardo Lacy MD [address] [place] [address] PCP - GeneralCardiology09/12/22Team MemberRelationshipSpecialtyStart DateEnd Date Gildardo Lacy MD [address] [place] [address] PCP - GeneralCardiology09/12/22Team MemberRelationshipSpecialtyStart DateEnd Date Gildardo Lacy MD [address] [place] [address] PCP - GeneralCardiology09/12/22Team MemberRelationshipSpecialtyStart DateEnd Date Gildardo Lacy MD [address] [place] [address] PCP - GeneralCardiology09/12/22Team MemberRelationshipSpecialtyStart DateEnd Date Gildardo Lacy MD [address] [place] [address] PCP - GeneralCardiology5/23Team MemberRelationshipSpecialtyStart DateEnd Date Gildardo Lacy MD [address] [place] [address] PCP - GeneralCardiology09/12/22Team MemberRelationshipSpecialtyStart DateEnd Date Gildardo Lacy MD [address] [place] [address] PCP - GeneralCardiology09/12/22Team MemberRelationshipSpecialtyStart DateEnd Date Gildardo Lacy MD [address] [place] [address] PCP - GeneralCardiology5Team MemberRelationshipSpecialtyStart DateEnd Date Gildardo Lacy MD [address] [place] [address] PCP - GeneralCardiology523Team MemberRelationshipSpecialtyStart DateEnd Date Gildardo Lacy MD [address] [place] [address] PCP - GeneralCardiology5/23Team MemberRelationshipSpecialtyStart DateEnd Date Gildardo Lacy MD [address] [place] [address] PCP - GeneralFamily Medicine07/16/20 Esdras Cash MD [address] [facility] [place] [address] PhysicianHematology/Oncology08/07/20 Nathaly Biggs APRN.SPOTTER [address] [facility] [place] [address] Nurse PractitionerHematology/Oncology08/07/20 Kathrine Carpenter MD [address] [facility] [place] [address] PhysicianRadiation Oncology08/07/20 Amira Powell LSW Social Worker09/16/21Team MemberRelationshipSpecialtyStart DateEnd Date Gildardo Lacy MD [address] [place] [address] PCP - GeneralCardiology09/12/22Team MemberRelationshipSpecialtyStart DateEnd Date Gildardo Lacy MD [address] [place] [address] PCP - GeneralCardiology09/12/22Team MemberRelationshipSpecialtyStart DateEnd Date Gildardo Lacy MD [address] [place] [address] PCP - GeneralCardiology09/12/22Team MemberRelationshipSpecialtyStart DateEnd Date Gildardo Lacy MD [address] [place] [address] PCP - GeneralFamily Medicine11/17/23Team MemberRelationshipSpecialtyStart DateEnd Date Gildardo Lacy MD [address] [place] [address] PCP - GeneralCardiology09/12/22Team MemberRelationshipSpecialtyStart DateEnd Date Gildardo Lacy MD [address] [place] [address] PCP - GeneralCardiology09/12/22Team MemberRelationshipSpecialtyStart DateEnd Date Gildardo Lacy MD [address] [place] [address] PCP - GeneralCardiology09/12/22Team MemberRelationshipSpecialtyStart DateEnd Date Gildardo Lacy MD [address] [place] [address] PCP - GeneralCardiology09/12/22Team MemberRelationshipSpecialtyStart DateEnd Date Gildardo Lacy MD [address] [place] [address] PCP - GeneralCardiology09/12/22Team MemberRelationshipSpecialtyStart DateEnd Date Gildardo Lacy MD [address] [place] [address] PCP - GeneralCardiology09/12/22Team MemberRelationshipSpecialtyStart DateEnd Date Gildardo Lacy MD [address] [place] [address] PCP - GeneralCardiology09/12/22Team MemberRelationshipSpecialtyStart DateEnd Date Gildardo Lacy MD [address] [place] [address] PCP - GeneralCardiology09/12/22Team MemberRelationshipSpecialtyStart DateEnd Date Gildardo Lacy MD [address] [place], [place] [address] PCP - GeneralFamily Medicine07/16/20 Esdras Cash MD [address] [facility] [place] [address] PhysicianHematology/Oncology08/07/20 Nathaly Biggs APRN.SPOTTER [address] [facility] [place] [address] Nurse PractitionerHematology/Oncology08/07/20 Kathrine Carpenter MD [address] [facility] [place] [address] PhysicianRadiation Oncology08/07/20 Amira Powell LSW Social Worker09/16/21 Cassie Hood PA [address] [address] [place] [address] Family Medicine05/24/24Team MemberRelationshipSpecialtyStart DateEnd Date Gildardo Lacy MD [address] [place] [address] PCP - GeneralCardiology09/12/22Team MemberRelationshipSpecialtyStart DateEnd Date Gildardo Lacy MD [address] [place] [address] PCP - [facility] Medicine07/16/20 Esdras Cash MD [address] [facility] [place] [address] PhysicianHematology/Oncology08/07/20 Nathaly Biggs, HUMIDIFIER MAINTENANCE WORKER.SPOTTER [address] [facility] [place] [address] Nurse PractitionerHematology/Oncology08/07/20 Kathrine Carpenter MD [address] [facility] [facility] [place] [address] PhysicianRadiation Oncology08/07/20 Amira Powell, [facility] Social Worker09/16/21 Cassie Hood PA [address] [place] [address] [facility]05/24/24Team MemberRelationshipSpecialtyStart DateEnd Date Gildardo Lacy MD [address] [place] [address] PCP - [facility] Medicine07/16/20 Esdras Cash MD [address] [facility] [facility] [place] [address] PhysicianHematology/Oncology08/07/20 Nathaly Biggs, HUMIDIFIER MAINTENANCE WORKER.SPOTTER [address] [facility] [place] [address] Nurse PractitionerHematology/Oncology08/07/20 Kathrine Carpenter MD [address] [facility] [place] [address] PhysicianRadiation Oncology08/07/20 Amira Powell, ENVIRONMENTAL PERMITTING SPECIALIST Social Worker09/16/21 Cassie Hood, PA [address] [facility] [address] [place] [address] Family Medicine05/24/24Team MemberRelationshipSpecialtyStart DateEnd Date Gildardo Lacy MD [address] [place] [address] PCP - GeneralCardiology09/12/22Team MemberRelationshipSpecialtyStart DateEnd Date Gildardo Lacy MD [address] [place] [address] PCP - GeneralFamily Medicine07/16/20 Esdras Cash MD [address] [facility] [place] [address] PhysicianHematology/Oncology08/07/20 Nathaly Biggs APRN.SPOTTER [address] [facility] [place] [address] Nurse PractitionerHematology/Oncology08/07/20 Kathrine Carpenter MD [address] [facility] [place] [address] PhysicianRadiation Oncology08/07/20 Amira Powell, ENVIRONMENTAL PERMITTING SPECIALIST Social Worker09/16/21 Cassie Hood, PA [address] [address] [place] [address] Family Medicine05/24/24Team MemberRelationshipSpecialtyStart DateEnd Date Gildardo Lacy MD PCP - GeneralFamily Xoikvylf54/14/18Team MemberRelationshipSpecialtyStart Date End Date Gildardo Lacy MD [address] [place] [address] PCP - GeneralCardiology09/12/22Team MemberRelationshipSpecialtyStart DateEnd Date Gildardo Lacy MD [address] [place] [address] PCP - GeneralCardiology09/12/22Team MemberRelationshipSpecialtyStart DateEnd Date Gildardo Lacy MD [address] [place] [address] PCP - GeneralCardiology09/12/22Team MemberRelationshipSpecialtyStart DateEnd Date Gildardo Lacy MD [address] [place] [address] PCP - GeneralCardiology09/12/22 Gildardo Lacy MD [address] [place] [address] PCP - [facility]09/01/24Team MemberRelationshipSpecialtyStart DateEnd Date Gildardo Lacy MD [address] [place] [address] PCP - GeneralFamily Medicine07/16/20 Esdras Cash MD [address] [facility] [place] [address] PhysicianHematology/Oncology08/07/20 Nathaly Biggs APRN.SPOTTER [address] [facility] [place] [address] Nurse PractitionerHematology/Oncology08/07/20 Kathrine Carpenter MD [address] [facility] [place] [address] PhysicianRadiation Oncology08/07/20 Amira Powell LSW Social Worker09/16/21 Cassie Hood PA [address] [facility] [address] [place], [place] [address] Family Medicine05/24/24Team MemberRelationshipSpecialtyStart DateEnd Date Gildardo Lacy MD [address] [place] [address] PCP - GeneralCardiology09/12/22 Gildardo Lacy MD [address] [place] [address] PCP - [facility]09/01/24Team MemberRelationshipSpecialtyStart DateEnd Date Gildardo Lacy MD [address] [place] [address] PCP - GeneralCardiology09/12/22 Gildardo Lacy MD [address] [place] [address] PCP - [facility]09/01/24Team MemberRelationshipSpecialtyStart DateEnd Date Gildardo Lacy MD [address] [place] [address] PCP - Generalmily Medicine11/17/23Team MemberRelationshipSpecialtyStart DateEnd Date Gildardo Lacy MD [address] [place] [address] PCP - GeneralCardiology09/12/22 Gildardo Lacy MD [address] [place] [address] PCP - [facility]09/01/24Team MemberRelationshipSpecialtyStart DateEnd Date Gildardo Lacy MD [address] [place] [address] PCP - GeneralCardiology09/12/22 Gildardo Lacy MD [address] [place] [address] PCP - [facility]09/01/24Team MemberRelationshipSpecialtyStart DateEnd Date Gildardo Lacy MD [address] [place] [address] PCP - GeneralCardiology09/12/22 Gildardo Lacy MD [address] [place] [address] PCP - [facility]09/01/24Team MemberRelationshipSpecialtyStart DateEnd Date Gildardo Lacy MD [address] [place] [address] PCP - GeneralCardiology09/12/22 Gildardo Lacy MD [address] [place] [address] PCP - [facility]09/01/24Team MemberRelationshipSpecialtyStart DateEnd Date Gildardo Lacy MD [address] [place] [address] PCP - GeneralCardiology09/12/22 Gildardo Lacy MD [address] [place] [address] PCP - [facility]09/01/24Team MemberRelationshipSpecialtyStart DateEnd Date Gildardo Lacy MD [address] [place] [address] PCP - GeneralCardiology09/12/22 Gildardo Lacy MD [address] [place] [address] PCP - [facility]09/01/24Team MemberRelationshipSpecialtyStart DateEnd Date Gildardo Lacy MD [address] [place] [address] PCP - GeneralCardiology09/12/22 Gildardo Layc MD [address] [place] [address] PCP - [facility]09/01/24Team MemberRelationshipSpecialtyStart DateEnd Date Gildardo Lacy MD [address] [place] [address] PCP - GeneralCardiology09/12/22 Gildardo Lacy MD [address] [place] [address] PCP - [facility]09/01/24Team MemberRelationshipSpecialtyStart DateEnd Date Gildardo Lacy MD [address] [place] [address] PCP - GeneralCardiology09/12/22 Gildardo Lacy MD [address] [place] [address] PCP - [facility]09/01/24Team MemberRelationshipSpecialtyStart DateEnd Date Gildardo Lacy MD [address] [place] [address] PCP - GeneralCardiology09/12/22 Gildardo Lacy MD [address] [place] [address] PCP - [facility]09/01/24Team MemberRelationshipSpecialtyStart DateEnd Date Gildardo Lacy MD [address] [place] [address] PCP - GeneralCardiology09/12/22 Gildardo Lacy MD [address] [place] [address] PCP - [facility]09/01/24Team MemberRelationshipSpecialtyStart DateEnd Date Gildardo Lacy MD [address] [place], [place] [address] PCP - GeneralSpencer Hospitally Medicine07/16/20 Nathaly Biggs APRN.SPOTTER [address] [facility] [place] [address] Nurse PractitionerHematology/Oncology08/07/20 Kathrine Carpenter MD [address] [facility] [facility] [place] [address] PhysicianRadiation Oncology08/07/20 Amira Powell LSW Social Worker09/16/21 Cassie Hood PA [address] [facility] [address] [place], [place] [address] Family Medicine05/24/24Team MemberRelationshipSpecialtyStart DateEnd Date Gildardo Lacy MD PCP - [facility] Moahqexv50/14/18Team MemberRelationshipSpecialtyStart Date End Date Gildardo Lacy MD [address] [place] [address] PCP - GeneralCardiology09/12/22 Gildardo Lacy MD [address] [place] [address] PCP - [facility]09/01/24Team MemberRelationshipSpecialtyStart DateEnd Date Gildardo Lacy MD [address] [place] [address] PCP - GeneralCardiology09/12/22 Gildardo Lacy MD [address] [place] [address] PCP - [facility]09/01/24Team MemberRelationshipSpecialtyStart DateEnd Date Gildardo Lacy MD [address] [place] [address] PCP - GeneralCardiology09/12/22 Gildardo Lacy MD [address] [place] [address] PCP - [facility]09/01/24Team MemberRelationshipSpecialtyStart DateEnd Date Gildardo Lacy MD [address] [place] [address] PCP - GeneralCardiology09/12/22 Gildardo Lacy MD [address] [place] [address] PCP - [facility]09/01/24Team MemberRelationshipSpecialtyStart DateEnd Date Gildardo Lacy MD [address] [place] [address] PCP - GeneralCardiology09/12/22 Gildardo Lacy MD [address] [place] [address] PCP - [facility]09/01/24 Team Status: Active Member [...] BE BASED ON THE PRIMARY CLINICAL RECORDS. [facility]. provides no warranty or guarantee of the accuracy or completeness of information in this document.
--- NOTE | 2025-04-13 09:04 | PM.CN ---
Consult Note: HPI Data of Consult Patient: known to practice within the last 3 years Consult date: 04/13/25 Requesting Physician: Arelis Medina NP Primary Care Provider: Gildardo Paredes MD Consult Narrative Reason for consult: low back pain, bilateral leg pain Narrative: 64yom who presents for evaluation. notes worsening low back pain with difficulty ambulating, several falls, numbness into left leg. history of throat cancer and recent significant weight loss, next f/u with oncology in 3 months. recently underwent screening which oncology deemed unremarkable. uses percocet and pregabalin 75mg TID. denies adverse med side effects. pain improving with pregabalin. today 12/11 in low back minimal in LLE. cc:: CC: Arelis Medina NP Review of Systems ROS Musculoskeletal Reports: back pain PFSH PFSH Medical History Acute hypoxic respiratory failure ?J96.01 - Acute respiratory failure with hypoxia (ICD-10) Cerebrovascular disease ?I67.9 - Cerebrovascular disease, unspecified (ICD-10) Benign essential hypertension ?I10 - Essential (primary) hypertension (ICD-10) Asthma exacerbation in COPD ?J44.1 - Chronic obstructive pulmonary disease with (acute) exacerbation (ICD-10) Hypoxemia ?R09.02 - Hypoxemia (ICD-10) Acute ischemic right BONY stroke ?I63.521 - Cerebral infarction due to unspecified occlusion or stenosis of right anterior cerebral artery (ICD-10) Peripheral arterial disease ?I73.9 - Peripheral vascular disease, unspecified (ICD-10) Occlusion of left internal carotid artery ?I65.22 - Occlusion and stenosis of left carotid artery (ICD-10) COPD (chronic obstructive pulmonary disease) ?J44.9 - Chronic obstructive pulmonary disease, unspecified (ICD-10) Chemotherapy-induced neuropathy ?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 - Drug-induced polyneuropathy (ICD-10) ?T45.1X5A - Adverse effect of antineoplastic and immunosuppressive drugs, initial encounter (ICD-10) Macrocytic anemia ?D53.9 - Nutritional anemia, unspecified (ICD-10) Hyponatremia ?E87.1 - Hypo-osmolality and hyponatremia (ICD-10) Hypomagnesemia ?E83.42 - Hypomagnesemia (ICD-10) Bilateral carotid artery stenosis ?I65.23 - Occlusion and stenosis of bilateral carotid arteries (ICD-10) Pneumonia ?J18.9 - Pneumonia, unspecified organism (ICD-10) Contusion of multiple sites ?T07.XXXA - Unspecified multiple injuries, initial encounter (ICD-10) History of hypertension ?Z86.79 - Personal history of other diseases of the circulatory system (ICD-10) History of throat cancer ?Z85.819 - Personal history of malignant neoplasm of unspecified site of lip, oral cavity, and pharynx (ICD-10) Hx of supraventricular tachycardia ?Z86.79 - Personal history of other diseases of the circulatory system (ICD-10) History of emphysema ?J43.9 - Emphysema, unspecified (ICD-10) History of arthritis ?Z87.39 - Personal history of other diseases of the musculoskeletal system and connective tissue (ICD-10) Hx of TIA (transient ischemic attack) and stroke ?Z86.73 - Personal history of transient ischemic attack (TIA), and cerebral infarction without residual deficits (ICD-10) History of COPD ?Z87.09 - Personal history of other diseases of the respiratory system (ICD-10) Surgical History Hx of cholecystectomy ?Z90.49 - Acquired absence of other specified parts of digestive tract (ICD-10) 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 - Acquired absence of spleen (ICD-10) Hx of hernia repair ?Z98.890 - Other specified postprocedural states (ICD-10) ?Z87.19 - Personal history of other diseases of the digestive system (ICD-10) Social History Within the past year, how often did you have a drink containing alcohol: 4 or more times a week Within the past year, how many standard drinks containing alcohol did you have on a typical day: 10 or more Within the past year, how often did you have six or more drinks on one occasion: daily or almost daily Total score: 12 Score interpretation: A score of 4 or more indicates drinking is likely to affect patient's safety. Smoking status: Heavy tobacco smoker Highest level of school completed/degree received: some college, no degree Do you want help with school or training: No Little interest or pleasure in doing things: not at all Feeling down, depressed, or hopeless: not at all Meds Home Medications and Allergies Home Medications ?Medication ?Instructions ?Recorded ?Confirmed ?Type omeprazole 40 mg capsule,delayed 40 mg PO DAILY 10/14/22 02/27/25 History release zolpidem 10 mg tablet 10 mg PO DAILY PRN insomnia 10/14/22 02/27/25 History aspirin 81 mg tablet,delayed 81 mg PO DAILY 07/23/24 02/27/25 History release (Adult Low Dose Aspirin) atorvastatin 20 mg tablet 20 mg PO DAILY 07/25/24 02/27/25 History topiramate 100 mg tablet (Topamax) 100 mg PO DAILY 07/25/24 02/27/25 History clopidogrel 75 mg tablet 75 mg PO QD #30 tabs 07/26/24 02/27/25 Rx fluticasone fur. 100 mcg-umeclid 1 inh inhalation DAILY 02/06/25 02/27/25 History 62.5 mcg-vilant 25 mcg inhalat.powder (Trelegy Ellipta) oxycodone-acetaminophen 5 mg-325 1 tab PO QID PRN pain 02/06/25 02/27/25 History mg tablet buprenorphine 10 mcg/hour weekly 1 patch transdermal Q7D 02/27/25 02/27/25 History transdermal patch (Butrans) buprenorphine 10 mcg/hour weekly 1 patch transdermal Q7D #4 ea 02/27/25 Rx transdermal patch (Butrans) pregabalin 50 mg capsule (Lyrica) 50 mg PO TID #90 caps 02/27/25 Rx pregabalin 50 mg capsule (Lyrica) 75 mg PO TID 02/27/25 03/16/25 History Allergies Allergy/AdvReac Type Severity Reaction Status Date / Time No Known Drug Allergies Allergy Verified 02/15/25 09:42 Exam Constitutional Documenting provider has reviewed patient's vital signs: yes Common normals: no apparent distress, oriented x3 and alert General appearance: cooperative Nutritional appearance: underweight HENMT Common normals: normocephalic, hearing grossly normal bilaterally and moist oral mucous membranes Head and scalp: normocephalic Eye Common normals: PERRL Pupil: PERRL Neck & C-Spine Common normals: full ROM General: normal visual inspection Chest Common normals: inspection of chest normal Respiratory Common normals: normal respiratory effort, no retractions and no use of accessory muscles Back & Pelvis Lumbar spine/lower back: pain with ROM and lumbar spinal tenderness Lumbar spinal tenderness location: L1, L2, L3, L4 and L5 Other: strength 4/5 in BLE sensation intact BLE Neuro Common normals: oriented x3 Sensorium/orientation: alert Gait (neuro): assistive device used (wheelchair) Psych Common normals: mental status grossly normal, thought process normal, cooperative, affect normal, speech normal and activity/motor behavior normal Speech: normal speech Thought process: normal thought process Results Additional Findings Additional findings: If on a controlled substance or opioids, I have checked an [place] report on this patient and there are no aberrancies noted in the prescribing history.??If on a controlled substance or opioid a drug screen was completed and reviewed within the last year, and if there has not been a drug screen completed we ordered one today to monitor higher risk, state monitored pain medication use. As part of providing excellent, safe, comprehensive care, the following was completed at our patient's visit: 1. A medication reconciliation and review to ensure accurate knowledge of current/active medications, including asking our patients to inform us about any [id number] medications or herbal remedies/nutritional supplements/alternative remedies. 2. A review to specifically ensure our patients have had annual screening for screening for depression, screening for tobacco use, and screening for unhealthy alcohol use. For concerning screenings had a discussion with the patient, provided patient education, and recommended follow-up with primary care provider when appropriate. If patient noted with a risk of falling, they received education on strength, gait, and balance training to prevent future risk of falling. Portions of this note may have been carried over from the previous visit and updated as appropriate. Please note this office utilizes paper charting in addition to the electronic medical record. A list of current medications, vitals, and PMH is available there as the clinical staff outside of myself do not have access to [employer] charting during the clinic day operations. As part of providing quality comprehensive care the current medications, vitals, and PMH were reviewed in the paper chart. Assessment and Plan Assessment and Plan (1) Polyneuropathy: (2) Lumbar spondylosis: (3) Chronic bilateral low back pain: Plan emg consistent with polyneuropathy defer lumbar TFESIs with lack of disc bulge and radicular pathology increase pregabalin 100mg TID, risks vs benefits reviewed consider scs trial in the future if needed f/u 4-6 weeks to evaluate medication changes
== END 2025-04-13 08:38 | disposition home or self-care (01) ==
LOC: PM 08:37
PROVIDERS: PCP Family Medicine; Visit Provider Nurse Practitioner
DX: G62.9 Polyneuropathy, unspecified (principal); M47.816 Spondylosis without myelopathy or radiculopathy, lumbar region; M54.50 Low back pain, unspecified
CPT/HCPCS: G0463